=== PATIENT | male | born 1940 | race Caucasian/White ===

== ENCOUNTER 2020-04-29 11:33 | Outpatient (REF) | payer MEDICARE, SELFPAY ==
[2020-04-29 13:56] LABS: MANUAL DIFF FLAG NO
[2020-04-29 14:10] LABS: Basophils Percent Auto 0.5 % (0-2); Eosinophils Absolute Auto 0.1 X10*3/uL (0.0-0.4); Eosinophils Percent Auto 1.3 % (0-4); Hematocrit 43.1 % (42-52); Hemoglobin 13.5 g/dl (14.0-18.0); Imm Gran Abs Auto 0.01 X10*3/uL (0.00-0.03); Imm Gran Pct Auto 0.1 % (0.0-0.4); Lymphocytes Absolute Auto 1.8 X10*3/uL (1.2-4.9); Lymphocytes Percent Auto 22.8 % (20-40); Mean Corpuscular HGB Conc 31.3 g/dl (31.0-36.0); Mean Corpuscular Hemoglobin 29.2 pg (27.0-33.0); Mean Corpuscular Volume 93.1 fL (80-98); Mean Platelet Volume 10.9 fL (9.4-12.4); Monocytes Percent Auto 13.1 % (2-11); Neutrophils Absolute Auto 4.9 X10*3/uL (2.0-8.3); Neutrophils Percent Auto 62.2 % (45-73); Platelet Count 122 X10*3/uL (160-400); Red Blood Count 4.63 X10*6/uL (4.60-5.80); White Blood Count 7.9 X10*3/uL (4.8-10.8)
[2020-04-29 14:33] LABS: Alanine Aminotransferase 19 U/L (0-40); Albumin Level 3.8 g/dL (3.5-5.0); Alkaline Phosphatase 62 U/L (39-117); Anion Gap 13 (12-20); Aspartate Amino Transferase 16 U/L (5-37); Bilirubin Total 0.5 mg/dL (0.0-1.0); Blood Urea Nitrogen 24 mg/dL (9-16); C Reactive Protein 0.25 mg/dL (< or = 0.50); Calcium 8.6 mg/dL (8.4-10.2); Carbon Dioxide 29 mmol/L (22-29); Chloride 107 mmol/L (96-108); Estimated Glomerular Filt Rate 43; Glucose Random 104 mg/dL (60-115); Magnesium 2.5 mg/dL (1.6-2.6); Potassium 4.6 mmol/l (3.3-5.1); Sodium 144 mmol/L (135-145); Total Protein 6.5 g/dL (6.5-8.0)
[2020-04-29 14:39] LABS: Iron 74 mcg/dL (45-160); Percent Iron Saturation 20 % (15-50); Total Iron Binding Capacity 375 mcg/dL (228-428); Unsaturated Iron Binding 301 ug/dL
[2020-04-29 14:39] LABS: Glucose Urine UA NEG (NEG); Leukocyte Esterase Urine NEG (NEG); Nitrite Urine NEG (NEG); Urine Blood NEG (NEG); Urine Ketones NEG (NEG); Urine Protein TRACE MG/DL (NEG-TRACE)
[2020-04-29 14:43] LABS: Appearance Urine CLEAR; Color Urine YELLOW; Total Protein Urine Random 32 mg/dL (<12)
[2020-04-29 14:48] LABS: Ferritin 20 ng/mL (20-250)
[2020-04-29 14:57] LABS: Vitamin D 25-OH Total 20.5 ng/mL (>30)
[2020-04-29 15:12] LABS: RBC Urine 0-2 /HPF (0); WBC Urine 0-2 /HPF (0-4)
[2020-05-01 23:07] LABS: Calcium (PTHI) 8.9 mg/dL (8.6-10.3); PTHI 85 pg/mL (14-64)
== END 2020-04-29 11:34 | disposition home or self-care (01) ==
LOC: HO.10HDL 11:33
PROVIDERS: Absent Provider Internal Medicine Nephrology; Visit Provider Internal Medicine
DX: R25.2 Cramp and spasm (principal); I48.0 Paroxysmal atrial fibrillation; N18.9 Chronic kidney disease, unspecified; D63.1 Anemia in chronic kidney disease
CPT/HCPCS: 36415; 80053; 81001; 82306; 82728; 83540; 83735; 83970; 84156; 85025; 86140

== ENCOUNTER 2020-06-30 12:08 | Outpatient (REF) | payer MEDICARE, SELFPAY ==
[2020-06-30 14:19] LABS: Alanine Aminotransferase 14 U/L (0-40); Albumin Level 3.9 g/dL (3.5-5.0); Alkaline Phosphatase 62 U/L (39-117); Anion Gap 13 (12-20); Aspartate Amino Transferase 16 U/L (5-37); Bilirubin Total 0.8 mg/dL (0.0-1.0); Blood Urea Nitrogen 26 mg/dL (9-16); Calcium 8.9 mg/dL (8.4-10.2); Carbon Dioxide 32 mmol/L (22-29); Chloride 103 mmol/L (96-108); Estimated Glomerular Filt Rate 29; Glucose Random 105 mg/dL (60-115); Magnesium 2.1 mg/dL (1.6-2.6); Potassium 4.3 mmol/l (3.3-5.1); Sodium 144 mmol/L (135-145); Total Protein 6.8 g/dL (6.5-8.0)
== END 2020-06-30 12:09 | disposition home or self-care (01) ==
LOC: HO.10HDL 12:08
PROVIDERS: PCP Internal Medicine; Visit Provider Internal Medicine
DX: I48.91 Unspecified atrial fibrillation (principal); I10 Essential (primary) hypertension; R07.9 Chest pain, unspecified; R60.9 Edema, unspecified
CPT/HCPCS: 80053; 82550; 83735; 86140

== ENCOUNTER 2020-07-08 08:00 | Outpatient (RCR) | payer MEDICARE, SELFPAY | END 2020-08-11 11:41 | disposition home or self-care (01) | LOC: HO.PTCHIC 08:00 | PROVIDERS: PCP Internal Medicine; Visit Provider Orthopaedic Surgery | DX: M76.10 Psoas tendinitis, unspecified hip (principal) | CPT/HCPCS: 97110; 97140; 97162 ==

== ENCOUNTER 2020-09-09 07:43 | Outpatient (REF) | payer MEDICARE, SELFPAY ==
[2020-09-09 10:03] LABS: MANUAL DIFF FLAG NO
[2020-09-09 10:08] LABS: Basophils Percent Auto 0.6 % (0-2); Eosinophils Absolute Auto 0.2 X10*3/uL (0.0-0.4); Eosinophils Percent Auto 2.8 % (0-4); Hematocrit 42.4 % (42-52); Imm Gran Abs Auto 0.02 X10*3/uL (0.00-0.03); Imm Gran Pct Auto 0.3 % (0.0-0.4); Lymphocytes Absolute Auto 1.9 X10*3/uL (1.2-4.9); Lymphocytes Percent Auto 29.9 % (20-40); Mean Corpuscular HGB Conc 30.7 g/dl (31.0-36.0); Mean Corpuscular Hemoglobin 28.3 pg (27.0-33.0); Mean Corpuscular Volume 92.4 fL (80-98); Mean Platelet Volume 10.7 fL (9.4-12.4); Monocytes Absolute Auto 0.9 X10*3/uL (0.1-1.2); Monocytes Percent Auto 14.5 % (2-11); Neutrophils Absolute Auto 3.3 X10*3/uL (2.0-8.3); Neutrophils Percent Auto 51.9 % (45-73); Platelet Count 130 X10*3/uL (160-400); Red Blood Count 4.59 X10*6/uL (4.60-5.80); White Blood Count 6.4 X10*3/uL (4.8-10.8)
[2020-09-09 10:22] LABS: INTERNATIONAL NORM RATIO 1.7 (0.9-1.1); Prothrombin Time 19.9 SEC (10.8-13.0)
[2020-09-09 10:58] LABS: Alanine Aminotransferase 22 U/L (0-40); Alkaline Phosphatase 73 U/L (39-117); Anion Gap 15 (12-20); Aspartate Amino Transferase 23 U/L (5-37); Bilirubin Total 0.8 mg/dL (0.0-1.0); Blood Urea Nitrogen 28 mg/dL (9-16); Calcium 8.4 mg/dL (8.4-10.2); Carbon Dioxide 29 mmol/L (22-29); Chloride 104 mmol/L (96-108); Estimated Glomerular Filt Rate 29; Free T4 (Free Thyroxine) 1.38 ng/dL (0.71-1.85); Glucose Random 123 mg/dL (60-115); Potassium 4.2 mmol/L (3.3-5.1); Sodium 144 mmol/L (135-145); Thyroid Stimulating Hormone 2.39 uIU/mL (0.32-4.0); Total Protein 6.8 g/dL (6.5-8.0)
== END 2020-09-09 07:44 | disposition home or self-care (01) ==
LOC: HO.10HDL 07:43
PROVIDERS: Absent Provider Internal Medicine Cardiovascular Disease; Visit Provider Internal Medicine
DX: I48.91 Unspecified atrial fibrillation (principal); N18.9 Chronic kidney disease, unspecified; R60.0 Localized edema; E03.9 Hypothyroidism, unspecified
CPT/HCPCS: 36415; 80053; 84439; 84443; 85025; 85610

== ENCOUNTER 2020-10-08 10:52 | Outpatient (REF) | payer MEDICARE, SELFPAY ==
[2020-10-08 13:38] LABS: MANUAL DIFF FLAG NO
[2020-10-08 13:53] LABS: Glucose Urine UA NEG (NEG); Leukocyte Esterase Urine NEG (NEG); Nitrite Urine NEG (NEG); PH 5.5 (5.0-8.0); Specific Gravity - Urine 1.025 (1.005-1.025); Urine Blood NEG (NEG); Urine Ketones 5 MG/DL (NEG); Urine Protein NEG (NEG-TRACE)
[2020-10-08 13:57] LABS: Appearance Urine CLEAR; Color Urine YELLOW
[2020-10-08 14:01] LABS: Basophils Percent Auto 0.5 % (0-2); Eosinophils Absolute Auto 0.1 X10*3/uL (0.0-0.4); Eosinophils Percent Auto 1.1 % (0-4); Hematocrit 40.8 % (42-52); Hemoglobin 12.9 g/dl (14.0-18.0); Imm Gran Abs Auto 0.03 X10*3/uL (0.00-0.03); Imm Gran Pct Auto 0.5 % (0.0-0.4); Lymphocytes Absolute Auto 1.1 X10*3/uL (1.2-4.9); Lymphocytes Percent Auto 17.5 % (20-40); Mean Corpuscular HGB Conc 31.6 g/dl (31.0-36.0); Mean Corpuscular Hemoglobin 28.4 pg (27.0-33.0); Mean Corpuscular Volume 89.7 fL (80-98); Mean Platelet Volume 10.6 fL (9.4-12.4); Monocytes Absolute Auto 0.9 X10*3/uL (0.1-1.2); Monocytes Percent Auto 14.6 % (2-11); Neutrophils Absolute Auto 4.2 X10*3/uL (2.0-8.3); Neutrophils Percent Auto 65.8 % (45-73); Platelet Count 140 X10*3/uL (160-400); Red Blood Count 4.55 X10*6/uL (4.60-5.80); White Blood Count 6.4 X10*3/uL (4.8-10.8)
[2020-10-08 14:02] LABS: Estimated Average Glucose 120 mg/dL; Hemoglobin A1c % 5.8 %
[2020-10-08 14:06] LABS: Anion Gap 12 (12-20); Blood Urea Nitrogen 17 mg/dL (9-16); Carbon Dioxide 29 mmol/L (22-29); Chloride 102 mmol/L (96-108); Estimated Glomerular Filt Rate 38; Sodium 139 mmol/L (135-145)
[2020-10-08 14:10] LABS: C Reactive Protein 2.04 mg/dL (< or = 0.50)
== END 2020-10-08 10:53 | disposition home or self-care (01) ==
LOC: HO.10HDL 10:52
PROVIDERS: Absent Provider Internal Medicine Cardiovascular Disease; PCP Internal Medicine; Visit Provider Internal Medicine
DX: R10.9 Unspecified abdominal pain (principal); N18.9 Chronic kidney disease, unspecified; R73.03 Prediabetes; Z98.890 Other specified postprocedural states
CPT/HCPCS: 36415; 80051; 81003; 82550; 82565; 83036; 84520; 85025; 86140; 87086

== ENCOUNTER 2020-10-09 13:48 | Outpatient (REF) | payer MEDICARE, SELFPAY ==
--- NOTE | ~2020-10-09 | CT_ITS ---
EXAMINATION: CT ABDOMEN AND PELVIS WITHOUT CONTRAST CLINICAL INFORMATION: Left abdominal pain. History of diverticulitis. COMPARISON: None TECHNIQUE: Multidetector volumetric imaging was performed from the superior aspect of the liver through the pubic symphysis. Sagittal and coronal reformatted images were obtained on the technologist's workstation. This CT examination was performed using dose optimization techniques as appropriate, variously including the following: *Automated exposure control *Adjustment of mA and/or kV according to patient size (this includes techniques or standardized protocols for targeted exams where dose is matched to indication/reason for exam; i.e. extremities or head) *Use of iterative reconstruction technique DLP: 858 mGy-cm FINDINGS: LUNG BASES: The visualized lung bases are unremarkable. The heart size is normal. LIVER, GALLBLADDER, AND BILIARY TREE: The liver is normal in size, shape, and attenuation. No focal hepatic lesion or biliary ductal dilatation is present. There are multiple round radiopaque gallstones with largest stone measuring 2.4 cm. No wall thickening noted. PANCREAS: Unremarkable. SPLEEN: Unremarkable. ADRENAL GLANDS: Unremarkable. KIDNEYS AND URETERS: Both kidneys are normal size, shape and position. No radiopaque renal calculi or hydronephrosis seen. There is no perinephric stranding. BLADDER: Unremarkable. GASTROINTESTINAL TRACT: There is scattered stool, diverticuli and gas seen throughout the colon without any significant distention. The small bowel loops are normal caliber. Appendix is normal caliber. No free air or free fluid seen. ABDOMINAL WALL: No significant hernia is appreciated. LYMPH NODES: Normal. VASCULAR: Unremarkable. PELVIC VISCERA: There is beam hardening artifact from bilateral hip prosthesis limiting lower pelvic evaluation. OSSEOUS STRUCTURES: There is degenerative disc changes with ventral and posterior spondylosis at all lumbar and lower dorsal disc levels. There is a large 2.6 cm lytic lesion L3 vertebra. It is stable compared to 01/03/2020. There are bilateral hip prosthesis. CT/CT abdomen pelvis wo con IMPRESSION: Gallstones without wall thickening. Mild constipation. Colonic diverticulosis without diverticulitis.
[2020-10-09] MEDS: Barium Sulfate Oral (Berry) 450 ML ORAL.SUSP 900 ML PO (15:59)
== END 2020-10-09 13:49 | disposition home or self-care (01) ==
LOC: HO.CT 13:48
PROVIDERS: PCP Internal Medicine; Visit Provider Internal Medicine
DX: R10.32 Left lower quadrant pain (principal)
CPT/HCPCS: 74176

== ENCOUNTER → 2020-11-12 11:41 | Outpatient (BNVA) | payer MEDICARE, SELFPAY | PROVIDERS: Visit Provider Urology | DX: Z13.89 Encounter for screening for other disorder (principal) | CPT/HCPCS: 99212 ==

== ENCOUNTER 2021-01-13 06:58 | Outpatient (REF) | payer MEDICARE, SELFPAY ==
[2021-01-13 11:27] LABS: MANUAL DIFF FLAG NO
[2021-01-13 12:05] LABS: Basophils Percent Auto 0.2 % (0-2); Eosinophils Absolute Auto 0.1 X10*3/uL (0.0-0.4); Eosinophils Percent Auto 0.7 % (0-4); Hematocrit 43.3 % (42-52); Hemoglobin 13.6 g/dl (14.0-18.0); Imm Gran Abs Auto 0.05 X10*3/uL (0.00-0.03); Imm Gran Pct Auto 0.5 % (0.0-0.4); Mean Corpuscular HGB Conc 31.4 g/dl (31.0-36.0); Mean Corpuscular Hemoglobin 28.9 pg (27.0-33.0); Mean Corpuscular Volume 91.9 fL (80-98); Mean Platelet Volume 10.6 fL (9.4-12.4); Monocytes Percent Auto 10.8 % (2-11); Neutrophils Absolute Auto 6.3 X10*3/uL (2.0-8.3); Neutrophils Percent Auto 66.8 % (45-73); Platelet Count 119 X10*3/uL (160-400); Red Blood Count 4.71 X10*6/uL (4.60-5.80); Red Cell Distribution Width 16.5 % (11.0-16.0); White Blood Count 9.4 X10*3/uL (4.8-10.8)
[2021-01-13 12:23] LABS: Anion Gap 15 (12-20); Blood Urea Nitrogen 33 mg/dL (9-16); Carbon Dioxide 22 mmol/L (22-29); Chloride 109 mmol/L (96-108); Estimated Glomerular Filt Rate 37; Glucose Random 114 mg/dL (60-115); Potassium 4.4 mmol/L (3.3-5.1); Sodium 142 mmol/L (135-145)
== END 2021-01-13 06:59 | disposition home or self-care (01) ==
LOC: HO.HMGCLDS 06:58
PROVIDERS: PCP Internal Medicine; Visit Provider Internal Medicine
DX: R00.2 Palpitations (principal); N18.9 Chronic kidney disease, unspecified; D63.1 Anemia in chronic kidney disease
CPT/HCPCS: 36415; 80048; 85025

== ENCOUNTER 2021-01-14 10:30 | Outpatient (REF) | payer MEDICARE, SELFPAY ==
[2021-01-14 14:01] LABS: Alanine Aminotransferase 36 U/L (0-40); Albumin Level 3.8 g/dL (3.5-5.0); Alkaline Phosphatase 79 U/L (39-117); Aspartate Amino Transferase 22 U/L (5-37); Bilirubin Direct 0.2 mg/dL (0.0-0.5); Bilirubin Total 0.5 mg/dL (0.0-1.0); C Reactive Protein 0.47 mg/dL (< or = 0.50); Total Protein 6.8 g/dL (6.5-8.0)
== END 2021-01-14 10:31 | disposition home or self-care (01) ==
LOC: HO.10HDL 10:30
PROVIDERS: PCP Internal Medicine; Visit Provider Internal Medicine
DX: R14.0 Abdominal distension (gaseous) (principal); K80.80 Other cholelithiasis without obstruction
CPT/HCPCS: 36415; 80076; 86140

== ENCOUNTER → 2021-02-09 12:56 | Outpatient (BNVA) | payer MEDICARE, SELFPAY | PROVIDERS: PCP Internal Medicine; Referring Provider Internal Medicine; Visit Provider Surgery | DX: K80.20 Calculus of gallbladder without cholecystitis without obstruction (principal) | CPT/HCPCS: 99202 ==

== ENCOUNTER 2021-02-10 11:58 | Outpatient (REF) | payer MEDICARE, SELFPAY ==
--- NOTE | ~2021-02-10 | XR_ITS ---
EXAMINATION: XR CHEST CLINICAL INFORMATION: Chest pressure. COMPARISON: None TECHNIQUE: 2 views of the chest were obtained. FINDINGS: There is mild cardiomegaly with normal pulmonary vascularity. The lungs are expanded and clear. No gross bony abnormality seen. XR/XR chest 2V IMPRESSION: Mild cardiomegaly. No acute cardiopulmonary process seen.
[2021-02-10 12:44] LABS: Basophils Percent Auto 0.5 % (0-2)
[2021-02-10 12:46] LABS: Eosinophils Absolute Auto 0.1 X10*3/uL (0.0-0.4); Eosinophils Percent Auto 1.7 % (0-4); Hematocrit 43.1 % (42-52); Hemoglobin 13.5 g/dl (14.0-18.0); Imm Gran Abs Auto 0.02 X10*3/uL (0.00-0.03); Imm Gran Pct Auto 0.3 % (0.0-0.4); Lymphocytes Absolute Auto 1.7 X10*3/uL (1.2-4.9); Mean Corpuscular HGB Conc 31.3 g/dl (31.0-36.0); Mean Corpuscular Hemoglobin 28.9 pg (27.0-33.0); Mean Corpuscular Volume 92.3 fL (80-98); Monocytes Absolute Auto 0.7 X10*3/uL (0.1-1.2); Monocytes Percent Auto 10.3 % (2-11); Neutrophils Absolute Auto 4.1 X10*3/uL (2.0-8.3); Neutrophils Percent Auto 62.2 % (45-73); Red Blood Count 4.67 X10*6/uL (4.60-5.80); Red Cell Distribution Width 15.1 % (11.0-16.0); White Blood Count 6.6 X10*3/uL (4.8-10.8)
[2021-02-10 12:50] LABS: Platelet Count 119 X10*3/uL (160-400)
[2021-02-10 12:55] LABS: D Dimer 337 NG/ML
[2021-02-10 13:19] LABS: Alanine Aminotransferase 16 U/L (0-40); Alkaline Phosphatase 80 U/L (39-117); Anion Gap 11 (12-20); Aspartate Amino Transferase 17 U/L (5-37); Bilirubin Total 0.5 mg/dL (0.0-1.0); Blood Urea Nitrogen 28 mg/dL (9-16); Calcium 9.1 mg/dL (8.4-10.2); Carbon Dioxide 29 mmol/L (22-29); Chloride 107 mmol/L (96-108); Estimated Glomerular Filt Rate 41; Glucose Random 105 mg/dL (60-115); Potassium 4.4 mmol/L (3.3-5.1); Sodium 143 mmol/L (135-145); Total Protein 6.8 g/dL (6.5-8.0)
== END 2021-02-10 11:59 | disposition home or self-care (01) ==
LOC: HO.XRAY 11:58
PROVIDERS: PCP Internal Medicine; Visit Provider Internal Medicine
DX: K80.20 Calculus of gallbladder without cholecystitis without obstruction (principal); R07.89 Other chest pain; I12.9 Hypertensive chronic kidney disease with stage 1 through stage 4 chronic kidney disease, or unspecified chronic kidney disease; N18.9 Chronic kidney disease, unspecified
CPT/HCPCS: 36415; 71046; 80053; 85025; 85379; 86140

== ENCOUNTER → 2021-02-26 07:26 | Outpatient (REF) | payer MEDICARE, SELFPAY ==
--- NOTE | 2021-02-26 07:29 | CA_ITS ---
Transthoracic Echocardiogram Patient (Last, First, Middle): Ramon Atkinson A Gender: Male Date of : 1940 Age: 81 Procedure Date: 02/26/2021 Procedure Type: Transthoracic Echocardiogram Location: OP Height: 182.88 cm Weight: 126.55 kg BSA: 2.45 m2 Heart Rate: bpm BP: 128 / 80 mmHg [employer]: Referring MD: Ferdinand Gonzáles MD Reaming Machine Operator For Plastic: Dante Briones MD Symptoms: I50.9 - Heart failure, unspecified Study Quality: TDS, GOOD WITH DEFINITY ECG Rhythm: Sinus Conclusions: - 1. Technically difficult study despite use of contrast 2. Normal LV systolic function with mild LVH with impaired relaxation filling pattern 3. Mildly dilated left atrium 4. Mild aortic stenosis 5. Normal RV systolic pressure Findings Procedure Information Contrast agent, definity, is being given per protocol without apparent complications. Left Ventricle The left ventricle was not well visualized. Normal left ventricular cavity size. There is mildly increased left ventricular wall thickness. The left ventricular systolic function is normal. The visually estimated ejection fraction is between 60-65%. There is no evidence of regional wall motion abnormalities. Spectral Doppler is indicative of an impaired relaxation filling pattern. Elevated filling pressures. Right Ventricle The right ventricle was not well visualized. Atria The left atrium is mildly dilated. There is no evidence of interatrial shunt. The right atrium was not well visualized. Aortic Valve The aortic valve was not well visualized. There is mild calcification of the aortic valve. There is mild aortic valve stenosis. The peak aortic gradient is 19 mmHg.The mean gradient is 9 mmHg. The aortic valve area is 1.67 cm2. There is no aortic valve regurgitation. Mitral Valve The mitral valve was not well visualized. There is trace mitral valve regurgitation. There is no mitral valve stenosis. Pulmonic Valve The pulmonic valve was not well visualized. Tricuspid Valve The tricuspid valve was not well visualized. There is trace tricuspid valve regurgitation. The right ventricular systolic pressure is normal. There is no evidence of pulmonary hypertension. Great Vessels The aorta was not well visualized. The pulmonary artery was not well visualized. Venous The inferior vena cava is normal in size. Pericardium/Pleural The pericardium was not well visualized. Prior Study Comparison Changes noted compared to prior study dated: 08/22/2018. Mild aortic stenosis is noted on this study Measurements 2D Linear Measurements IVSd: 1.29 0.6-0.9/0.6-1.0 cm LVIDd: 5.03 3.9-5.3/4.2-5.9 cm LVIDd Index: 2.05 2.4-3.2/2.2-3.1 cm/m2 LVIDs: 3.09 2.0-3.6 cm LVPWd: 1.30 0.7-1.1 cm Ao Root: 3.80 2.1-3.5 cm LA Diam: 3.50 2.7-3.8/3.0-4.0 cm LAIDs Index: 1.43 1.5-2.3 cm/m2 LV Mass: 327.79 67-162/88-224 g LV Mass Index: 133.79 43-95/49-115 g/m2 LVOT Diam: 2.20 3.0+(-)1.3 cm 2D Systolic Function EF 4C: 55.20 >55% EF 2C: 64.20 >55% EF BiP: 60.70 >55% Mitral Valve MV Pk E: 0.88 MV PK A: 0.77 MV Decel Time: 257.00 E/A: 1.10 E'Lateral: 7.07 E'Medial: 5.11 E/E' Med: 17.20 E/E' Lat: 12.40 PHT: 75.00 MVA PHT: 2.93 Decel Hinds: 3.42 Aortic Valve AoV Pk Moshe: 2.16 AoV Mn Moshe: 1.36 AoV VTI: 0.53 AoV Pk Grad: 19.00 Aov Mn Grad: 9.00 VALENTIN Cont.VTI: 1.67 LVOT LVOT Pk Moshe: 0.88 LVOT Mn Moshe: 0.65 LVOT VTI: 0.23 LVOT Pk Grad: 3.00 LVOT Mn Grad: 2.00 LVOT Diam: 2.20 LVOT Area: 3.80 Diastolic Function MV Pk E: 0.88 MV Pk A: 0.77 E/A: 1.10 E'Medial: 5.11 E/E' Med: 17.20 E' Laterial: 7.07 E/E' Lat: 12.40 Right Ventricle TAPSE (mm): 27.00 TVS' Moshe: 12.00 Tricuspid Valve TR Pk Moshe: 1.75 TR Pk Grad: 12.00 RA Press: 3.00 RVSP: 15.00 Great Vessels Aorta Ao Root-2D: 3.80 2.0-3.7 cm Ao Asc: 3.50 2.1-3.4 cm Pulmonary Valve PV Pk Moshe: 0.69 Peak PV Grad: 2.00 Updated in Other Vendor System with Status of Final Dante Briones MD electronically signed on 02/26/2021 4:12:01 PM with status of Final
== END ==
LOC: HO.CARD 07:26
PROVIDERS: Visit Provider Surgery
DX: I50.9 Heart failure, unspecified (principal); R01.1 Cardiac murmur, unspecified; G47.30 Sleep apnea, unspecified; I48.91 Unspecified atrial fibrillation
CPT/HCPCS: 93306; Q9957

== ENCOUNTER 2021-03-03 07:51 | Day surgery (SDC) | payer MEDICARE, SELFPAY ==
[2021-02-22 10:10] VITALS: BMI 38.3
[2021-02-23 12:27] VITALS: BP 195/90; PULSE 68; RESP 18; O2SAT 97
--- NOTE | 2021-02-23 12:31 | P.CONAN_ITS ---
Documented by User: Ros Schmitz NP 03/02/21 10:24 HPI - Anesthesia Eval Consult details Narrative: 81yo M for Cholecystectomy Laparoscopic, Poss Open Cardiac cleared Eliquis for afib (s/p mult cardioversions and ablation) Case reviewed with Dr Hall. Echo preop BP elevated at [facility]. PCP is monitoring. Recently had amlodipine added to regimen and has been going for BP checks. BP readings at PCP have been lower. Will monitor at home and contact PCP if remains elevated. [facility] Active Problems Active Problems: All Active Problems (Updated 02/22/21 @ 10:16 by Jackie Villa) Symptomatic cholelithiasis (Acute) Renal stones (Acute) Elevated PSA (Acute) BPH loc w urin obs/LUTS (Acute) Past Medical History Medical History (Updated 02/23/21 @ 13:38 by Ros Schmitz NP) Atrial fibrillation BPH loc w urin obs/LUTS COVID-19 vaccine series completed Elevated PSA Facet arthropathy, cervical GERD (gastroesophageal reflux disease) HTN (hypertension) Hyperlipidemia On anticoagulant therapy Renal stones Sleep apnea Thyroid disease Surgical History Surgical History (Updated 02/22/21 @ 10:16 by Jackie Villa RN) H/O colonoscopy History of surgery History of total replacement of both hip joints Hx of arthroscopic knee surgery Hx of cataract extraction Hx of cystoscopy Social History Social History (Updated 02/22/21 @ 10:19 by Jackie Villa RN) Household Members: Spouse Housing: House Are you a primary certified caregiver to a significant other at home: No Do you presently have visiting nurse or other home services: No Alcohol intake: never Patient Tobacco Use Status: Never used Tobacco Use of substances other than those prescribed or required for medical reasons: No Have you been hit, kicked, punched, or otherwise hurt by someone within the past year? If so, by whom?: No Are you DNR?: No Advance Directives: No (states is his [place] Advance Directives Information Provided: No Advance Directives on File: No Recently lost weight without trying: No Eating poorly because of decreased appetite: No Nutrition Risks: Surgical patient >75years Poor oral hygiene: No (upper right front broken tooth) Meds Allergies Allergy/AdvReac Type Severity Reaction Status Date / Time ibuprofen [IBUPROFEN] Allergy Intermediate HIVES Verified 02/22/21 10:27 hydromorphone [From DILAUDID] AdvReac Intermediate ILEUS Verified 02/09/21 13:24 procaine [From Novocain] AdvReac Intermediate has no Verified 02/22/21 10:27 numbing effect-states monocain works narcotic pain meds AdvReac Intermediate does not Uncoded 02/22/21 10:27 relieve pain per patient Home Medications Medication Instructions Recorded Confirmed Last Taken Type levothyroxine 88 mcg tablet 88 mcg PO 6XW 11/12/20 02/22/21 03/03/21 06:00 History apixaban 5 mg tablet (Eliquis) 5 mg PO BID 02/09/21 02/22/21 02/28/21 History omeprazole 40 mg capsule,delayed 40 mg PO DAILY 02/09/21 02/22/21 03/03/21 06:00 History release pravastatin 80 mg tablet 80 mg PO BEDTIME 02/09/21 02/22/21 Unknown History torsemide 20 mg tablet 20 mg PO Q2D 02/09/21 02/22/21 Unknown History acetaminophen 500 mg tablet 1,000 mg PO QAM 02/22/21 02/22/21 Unknown History (Tylenol Extra Strength) amlodipine 5 mg tablet 2.5 mg PO DAILY 02/22/21 02/22/21 Unknown History cephalexin 500 mg capsule 1 cap PO QID 03/03/21 03/03/21 03/02/21 History Exam Exam Date and Time: February 23, 2021 1231 Height,Weight and Vital Signs: Height 6 ft Weight 128.367 kg Pertinent Lab Results Pertinent Lab Results: Laboratory Tests 02/10/21 02/10/21 12:15 12:15 WBC 6.6 Hgb 13.5 L Hct 43.1 Plt Count 119 L Sodium 143 Potassium 4.4 Chloride 107 Carbon Dioxide 29 BUN 28 H Creatinine 1.63 H Narrative Narrative: + murmur noted on exam, +1 edema in ankles. Pt held torsemide to avoid urinary frequency. ECHO 02/26/21 Conclusions: -? 1. Technically difficult study despite use of contrast? 2. Normal LV systolic function with mild LVH with impaired ? ? ? relaxation filling pattern ? 3. Mildly dilated left atrium? 4. Mild aortic stenosis? 5. Normal RV systolic pressure ? Airway Mallampati Class: II TM Dist: >3cm Neck ROM: Full Loose/Missing/Broken Teeth: Yes (Upper front broken) Heart: RRR + M Lungs: CTAB Assessment and Plan Assessment Anesthesia Assessment: Anesthesia Plan Discussed and PAT Visit Documented by User: Matt Meadows MD 03/03/21 10:07 PMFSH Past Medical History Medical History (Updated 02/23/21 @ 13:38 by Ros Schmitz NP) Atrial fibrillation BPH loc w urin obs/LUTS COVID-19 vaccine series completed Elevated PSA Facet arthropathy, cervical GERD (gastroesophageal reflux disease) HTN (hypertension) Hyperlipidemia On anticoagulant therapy Renal stones Sleep apnea Thyroid disease Family History Family history of problems with anesthesia: No Surgical History Surgical History (Updated 02/22/21 @ 10:16 by Jackie Villa RN) H/O colonoscopy History of surgery History of total replacement of both hip joints Hx of arthroscopic knee surgery Hx of cataract extraction Hx of cystoscopy History of Problems with Anesthesia: No Social History Social History (Updated 02/22/21 @ 10:19 by Jackie Villa RN) Household Members: Spouse Housing: House Are you a primary certified caregiver to a significant other at home: No Do you presently have visiting nurse or other home services: No Alcohol intake: never Patient Tobacco Use Status: Never used Tobacco Use of substances other than those prescribed or required for medical reasons: No Have you been hit, kicked, punched, or otherwise hurt by someone within the past year? If so, by whom?: No Are you DNR?: No Advance Directives: No (states is his -[place] Advance Directives Information Provided: No Advance Directives on File: No Recently lost weight without trying: No Eating poorly because of decreased appetite: No Nutrition Risks: Surgical patient >75years Poor oral hygiene: No (upper right front broken tooth) Meds Allergies Allergy/AdvReac Type Severity Reaction Status Date / Time ibuprofen [IBUPROFEN] Allergy Intermediate HIVES Verified 02/22/21 10:27 hydromorphone [From DILAUDID] AdvReac Intermediate ILEUS Verified 02/09/21 13:24 procaine [From Novocain] AdvReac Intermediate has no Verified 02/22/21 10:27 numbing effect-states monocain works narcotic pain meds AdvReac Intermediate does not Uncoded 02/22/21 10:27 relieve pain per patient Home Medications Medication Instructions Recorded Confirmed Last Taken Type levothyroxine 88 mcg tablet 88 mcg PO 6XW 11/12/20 02/22/21 03/03/21 06:00 History apixaban 5 mg tablet (Eliquis) 5 mg PO BID 02/09/21 02/22/21 02/28/21 History omeprazole 40 mg capsule,delayed 40 mg PO DAILY 02/09/21 02/22/21 03/03/21 06:00 History release pravastatin 80 mg tablet 80 mg PO BEDTIME 02/09/21 02/22/21 Unknown History torsemide 20 mg tablet 20 mg PO Q2D 02/09/21 02/22/21 Unknown History acetaminophen 500 mg tablet 1,000 mg PO QAM 02/22/21 02/22/21 Unknown History (Tylenol Extra Strength) amlodipine 5 mg tablet 2.5 mg PO DAILY 02/22/21 02/22/21 Unknown History cephalexin 500 mg capsule 1 cap PO QID 03/03/21 03/03/21 03/02/21 History Exam Airway TM Dist: <=3cm Assessment and Plan Assessment Anesthesia Assessment: Chart Reviewed Final Anesthetic Review Family History of Problems with Anesthesia: No History of Problems with Anesthesia: No NPO: Yes ASA Class: III Final Preanesthetic Review: No Changes in Pt Med Stat, Meds/Allgs Chart Reviewed, Consent Obtained/Reviewed and Anes Risks/Benef Reviewed Patient Risk: High Procedure Risk: Intermediate Anesthetic Plan Anesthetic Plan: GA and Agree w/ Assess. and Plan Disposition: Standard PACU
[2021-03-03] VITALS (29 sets, daily range): BP systolic 125–189; BP diastolic 63–82; PULSE 50–75; RESP 16–20; TEMP 36.3–37.4; O2SAT 92–100
[2021-03-03] MEDS: Lactated Ringers 1,000 ML 100 ML IVCONT (08:52)
--- NOTE | 2021-03-03 09:39 | MHC.SHP ---
Pre-Procedural Eval Section A Date of Service: 03/03/21 The patient is an INPATIENT: No Changes since office visit: Yes Patient answered all questions; No Cold of Flu in the past 2 weeks, No New Medical Problems and No Changes in Medication The History & Physical has been completed within 30 days and I have reviewed it.: Yes Section B Chief Complaint: Symptomatic cholelithiasis Allergies: Allergies Allergy/AdvReac Type Severity Reaction Status Date / Time ibuprofen [IBUPROFEN] Allergy Intermediate HIVES Verified 02/22/21 10:27 hydromorphone [From DILAUDID] AdvReac Intermediate ILEUS Verified 02/09/21 13:24 procaine [From Novocain] AdvReac Intermediate has no Verified 02/22/21 10:27 numbing effect-states monocain works narcotic pain meds AdvReac Intermediate does not Uncoded 02/22/21 10:27 relieve pain per patient Plan Diagnosis/Plan: Unchanged I have reviewed the history and physical and performed a pertinent physical examination on my patient. No changes have occurred unless specified.
--- NOTE | 2021-03-03 11:57 | W.PM.OPN ---
Operative Note Operative Note Date of Service: 03/03/21 Narrative: Preoperative diagnosis: Symptomatic cholelithiasis Postoperative diagnosis: Same Procedure: Laparoscopic cholecystectomy Surgeon: Ferdinand Gonzáles MD Assistant Hvac Mechanic: LUIS E Beck Anesthesia: General endotracheal Indications for procedure:81-year-old male patient presenting with complaints of abdominal pain in the right upper quadrant found to have multiple large gallstones within the gallbladder. Patient presents today for laparoscopic cholecystectomy. Operative findings: Chronically inflamed gallbladder which was located in intrahepatic location with multiple large gallstones. Specimen: Gallbladder Estimated blood loss: 15 mL Complications: none Procedure details: Patient was brought to the OR and placed in a supine position. After administering general anesthesia the patient's abdomen was prepped with ChloraPrep and draped in a sterile fashion. Local anesthesia consisting of 0.25% Sensorcaine with epinephrine was infiltrated in a periumbilical region. A 5 mm incision was made above the umbilicus in a transverse fashion. The Veress needle was then inserted while elevating abdominal cavity with towel clips. After positive drop test the abdomen was insufflated to a pressure of 15 mm of mercury. The Veress needle was then removed and a 5 mm trocar inserted. The camera was inserted in the abdomen explored. A 12 mm trocar was then placed in the epigastrium and 2 5 mm trocars placed in the right upper quadrant. The patient was placed in reverse Trendelenburg positioning and rotated to the left. The gallbladder was grasped with the fundus and retracted cephalad.. The infundibulum Was then grasped and retracted away from the liver bed. The Dolphin dissected was then used to dissect the peritoneum off the infundibulum to reveal the junction with the cystic duct. Cystic artery was noted slightly medial and posterior to the cystic duct. After obtaining a critical view the cystic duct was doubly clipped and divided. The cystic artery was then doubly clipped and divided. The gallbladder was then dissected off the liver bed using electrocautery with an L hook. Hemostasis was assured all times using the electrocautery. When the gallbladder is completely dissected off the liver bed was placed in an Endo-Catch bag and brought out through the epigastric incision. The gallbladder was sent to pathology for further examination. The abdomen was then re-examined. The liver bed was irrigated and suctioned dry. No bleeding or bile leak could be identified. Because of the intrahepatic location of the gallbladder there was some raw surface of the liver which was not bleeding however Surgicel was applied as a precaution. CO2 was then evacuated and all trocars removed. Fascia was closed at the epigastric incision using a [id number] 0 Polysorb suture. Skin was closed in all incisions using a subcuticular 4 0 Polysorb suture. Sterile dressings consisting of Steri-Strips, 2 x 2 gauze, and Tegaderm were then applied. The patient tolerated the procedure well. Sponge instrument and needle counts reported as correct. The patient was transferred to PACU in stable condition.
[2021-03-03] MEDS: oxyCODONE HCl Immed Release 5 MG TABLET PO ×2 (12:37→23:39)
--- NOTE | 2021-03-03 12:43 | ECG_ITS ---
Test Reason : CHEST PAIN Blood Pressure : / mmHG Vent. Rate : 052 BPM Atrial Rate : 052 BPM P-R Int : 226 ms QRS Dur : 098 ms QT Int : 516 ms P-R-T Axes : 048 -32 -31 degrees QTc Int : 479 ms Sinus bradycardia with 1st degree A-V block Left axis deviation Incomplete right bundle branch block Voltage criteria for left ventricular hypertrophy Inferior infarct , age undetermined Abnormal ECG When compared with ECG of 22-AUG-2018 06:40, Atrial fibrillation with rapid ventricular response is no longer Present Referred By: Ferdinand Gonzáles Electronically Signed By:STEVE BOGGS
--- NOTE | 2021-03-03 12:45 | PC.NURSE ---
patient started to have chest pain right before giving fentanyl. epigastric area,pressure with burning. color wnl. patient states he feels sob md castano by bedside and ordered ekg.
[2021-03-03] MEDS: fentaNYL citrate/PF 100 MCG/2 ML VIAL 50 MCG IVPUSH ×4 (12:51→13:51)
--- NOTE | 2021-03-03 12:54 | PC.NURSE ---
md hodgson by bedside reeval patient. ekg performed. epigastric pain 9/10 abd pain 10/10.
--- NOTE | 2021-03-03 13:10 | PC.NURSE ---
troponin sensitivity being drawn at this time. cont to monitor.
[2021-03-03] MEDS: Nitroglycerin 0.4 MG TAB.SUBL SUBLINGUAL ×3 (13:28→16:52)
--- NOTE | 2021-03-03 13:31 | PC.NURSE ---
1st dose of nitro 0.4mg given sl for 9/10 epigastric pain/chest pain, pressure per patient and abd pain. dressings remain dry and intact. no bleeding noted. 8/10 chest pain and 9/10 abd pain.
--- NOTE | 2021-03-03 13:44 | PC.NURSE ---
md castano by bedside.
[2021-03-03 13:48] LABS: Troponin-I High Sensitivity 12.5 ng/L (<3.5-35.0)
--- NOTE | 2021-03-03 13:53 | PC.NURSE ---
medicated for 7/10 chest/epigastric pain and abd pain
--- NOTE | 2021-03-03 14:05 | PC.NURSE ---
second dose of nitro given. cont to monitor. 1st dose of nitro took a longtime to dissolve due to dry mouth. reapplied new ice packs. cardiology cinsult put in by md castano. family aware of his plan of care and so does the patient.
--- NOTE | 2021-03-03 15:33 | PM.EVENT ---
Event Note Date of Service: 03/03/21 Event Note: Notified by a PACU the patient developed chest pain located in the substernal location. He also reports a sensation of feeling shortness of breath. Saturation noted to be in the high 90s however blood pressure was also markedly elevated (190s/70s). Patient was evaluated by Dr. Schaefer from anesthesia and EKG, troponins ordered. Patient given sublingual nitro glycerin and pain medication. He reports feeling improved with improved breathing. Patient to be placed as extended recovery patient, placed on IMC with telemetry monitoring. I discussed the patient's condition with his and she expressed understanding and agrees with the plan. Cardiology consultation requested.
--- NOTE | 2021-03-03 16:45 | P.CONCA_ITS ---
History of Present Illness History of Present Illness Date of Service: 03/03/21 Chief complaint: CP Narrative: 81-year-old gentleman with background history of atrial fibrillation for which he underwent ablation follow-up atypical chest pain and hypertension presenting for gallstones and underwent do cholecystectomy. In PACU she developed substernal chest pressure in setting of elevated blood pressures. He was given nitroglycerin with relief in his chest discomfort. He has been experiencing chest discomfort before which was quite atypical and mostly in the setting of AFib with RVR. He has a recent his blood pressure was elevated and he saw Dr. Rodriguez and amlodipine was added to his regimen. He said he did not take any medications today because he was coming for procedure. His blood pressure was high and he was started on his home medications. He was complaining of mild chest discomfort. His troponin was negative an EKG was also nonspecific. he was on Eliquis which was stopped because of surgery. Review of Systems Review of Systems: Chest discomfort PMFSH Past Medical History Medical History (Updated 03/03/21 @ 19:29 by Ascencion Holland MD) Atrial fibrillation BPH loc w urin obs/LUTS COVID-19 vaccine series completed Elevated PSA Facet arthropathy, cervical GERD (gastroesophageal reflux disease) HTN (hypertension) Hyperlipidemia On anticoagulant therapy Renal stones Sleep apnea Thyroid disease Surgical History Surgical History (Updated 02/22/21 @ 10:16 by Jackie Villa RN) H/O colonoscopy History of surgery History of total replacement of both hip joints Hx of arthroscopic knee surgery Hx of cataract extraction Hx of cystoscopy Social History Social History (Updated 02/22/21 @ 10:19 by Jackie Villa RN) Household Members: Spouse Housing: House Are you a primary healthcare architect to a significant other at home: No Do you presently have visiting nurse or other home services: No Alcohol intake: never Patient Tobacco Use Status: Never used Tobacco Use of substances other than those prescribed or required for medical reasons: No Currently Displaying Signs/Symptoms of Drug Intoxication Withdrawal: No Have you been hit, kicked, punched, or otherwise hurt by someone within the past year? If so, by whom?: No Do you feel safe in your current relationship?: No Is there a partner from a previous relationship who is making you feel unsafe now?: No Are you made to feel afraid or neglected: No Jehovah'S Witness Healthcare Practices: Pentecostalism Are you DNR?: No Advance Directives: No (states is [place] [place] Advance Directives Information Provided: No Advance Directives on File: No Do you have thoughts of harming others: None Do you have a plan to hurt others: No Plan Recently lost weight without trying: No Eating poorly because of decreased appetite: No Nutrition Risks: No Nutritional Risk Poor oral hygiene: No Meds Allergies Allergy/AdvReac Type Severity Reaction Status Date / Time ibuprofen [IBUPROFEN] Allergy Intermediate HIVES Verified 02/22/21 10:27 hydromorphone [From DILAUDID] AdvReac Intermediate ILEUS Verified 02/09/21 13:24 procaine [From Novocain] AdvReac Intermediate has no Verified 02/22/21 10:27 numbing effect-states monocain works narcotic pain meds AdvReac Intermediate does not Uncoded 02/22/21 10:27 relieve pain per patient Active Medications: Current Medications Generic Name Dose Route Start Last Admin Trade Name Freq PRN Reason Stop Dose Admin Acetaminophen 650 mg 03/03/21 13:50 Acetaminophen 325 Mg Tablet PO Q6H PRN Pain, Moderate (Pain Scale 4-6 Acetaminophen 975 mg 03/04/21 09:00 Acetaminophen 325 Mg Tablet PO DAILY [facility] Amlodipine Besylate 2.5 mg 03/04/21 09:00 Amlodipine Besylate 2.5 Mg Tablet PO DAILY [facility] Protocol Lactated Ringer's 1,000 mls @ 100 mls/hr 03/03/21 08:15 03/03/21 08:52 Lr IVCONT 100 mls/hr .Q10H [facility]AN Administration Dextrose/Lactated Ringer's 1,000 mls @ 125 mls/hr 03/03/21 14:00 D5lr IVCONT .Q8H [facility] Morphine Sulfate 4 mg 03/03/21 13:50 Morphine Sulfate 2 Mg/Ml Cartridge IVPUSH Q3H PRN Pain, Severe (Pain Scale 7-10) Protocol Nitroglycerin 0.4 mg 03/03/21 13:21 03/03/21 14:01 Nitroglycerin 0.4 Mg Tab.Subl SUBLINGUAL 0.4 mg Q5MX3 PRN Administration Chest Pain Omeprazole 40 mg 03/04/21 06:30 Omeprazole 40 Mg Capsule. PO DAILY@0630 [facility] Ondansetron HCl 4 mg 03/03/21 10:07 Ondansetron Hcl 4 Mg/2 Ml Vial IVPUSH ONCE PRN Nausea and Vomiting Ondansetron HCl 4 mg 03/03/21 13:50 Ondansetron Hcl 4 Mg/2 Ml Vial IVPUSH Q8H PRN Nausea and Vomiting Oxycodone HCl 5 mg 03/03/21 13:50 Oxycodone Hcl Immed Release 5 Mg Tablet PO Q4H PRN Pain, Moderate (Pain Scale 4-6 Pravastatin Sodium 80 mg 03/03/21 21:00 Pravastatin Sodium 80 Mg Tablet PO BEDTIME [facility] Sodium Chloride 3 ml 03/03/21 16:00 0.9 % Sodium Chloride Flush 3 Ml Syringe IVFLUSH QSHIFT [facility] Temazepam 15 mg 03/03/21 13:50 Temazepam 15 Mg Capsule PO BEDTIME PRN Insomnia Torsemide 20 mg 03/04/21 09:00 Torsemide 20 Mg Tablet PO Q2D [facility] Protocol Home Medications Medication Instructions Recorded Confirmed Last Taken Type levothyroxine 88 mcg tablet 88 mcg PO 6XW 11/12/20 02/22/21 03/03/21 06:00 History apixaban 5 mg tablet (Eliquis) 5 mg PO BID 02/09/21 02/22/21 02/28/21 History omeprazole 40 mg capsule,delayed 40 mg PO DAILY 02/09/21 02/22/21 03/03/21 06:00 History release pravastatin 80 mg tablet 80 mg PO BEDTIME 02/09/21 02/22/21 Unknown History torsemide 20 mg tablet 20 mg PO Q2D 02/09/21 02/22/21 Unknown History acetaminophen 500 mg tablet 1,000 mg PO QAM 02/22/21 02/22/21 Unknown History (Tylenol Extra Strength) amlodipine 5 mg tablet 2.5 mg PO DAILY 02/22/21 02/22/21 Unknown History cephalexin 500 mg capsule 1 cap PO QID 03/03/21 03/03/21 03/02/21 History Physical Exam Vital Signs: Vital Signs: Last Vital Signs Temp 98.5 F 03/03/21 15:44 Pulse 61 03/03/21 15:44 Resp 18 03/03/21 15:44 BP 163/76 H 03/03/21 15:44 Pulse Ox 98 03/03/21 15:44 Body Mass Index 38.3 GENERAL APPEARANCE: in no acute distress, pleasant. NECK: no carotid bruit, no jugular venous distention. SKIN: no suspicious lesions, warm and dry. HEART: no murmurs, regular rate and rhythm. LUNGS: clear to auscultation bilaterally. ABDOMEN: soft, Tender RUQ-post Op. EXTREMITIES: no edema. PERIPHERAL PULSES: equal. NEUROLOGIC: No gross deficits, AAO X 3 Results Labs and Meds Lab results: Laboratory Results - last 24 hr 03/03/21 13:11 Troponin I High Sens 12.5 Assessment and Plan (1) Chest pain: Status: Acute (2) HTN (hypertension): Status: Acute 81-year-old gentleman background history of paroxysmal fibrillation status post ablation on anticoagulation and hypertension who is presenting for is cholecystectomy electively. Post surgery developed chest discomfort and elevated blood pressures. He was given nitroglycerin with improvement in blood pressure and chest discomfort. He is still has mild chest discomfort. EKG is nonspecific. Troponin is normal. I think CP is due to elevated BP. He has no h/o CAD. Recheck troponin in 3 hours. Control BP. Restart home medications. We will follow along. Procedures Date of Service Date of Service: 03/03/21
[2021-03-03] MEDS: Dextrose 5 % and Lactated Ring 1,000 ML 125 ML IVCONT (16:55)
[2021-03-03] MEDS: amLODIPine Besylate 2.5 MG TABLET PO (18:11)
[2021-03-03] MEDS: Nitroglycerin 2 % Oint 1 GM Packet 1 INCH TRANSDERMA (19:46)
[2021-03-03] MEDS: Pravastatin Sodium 80 MG TABLET PO (20:00)
[2021-03-03] MEDS: 0.9 % Sodium Chloride Flush 3 ML SYRINGE IVFLUSH (23:39)
[2021-03-04] VITALS (7 sets, daily range): BP systolic 159–180; BP diastolic 64–71; PULSE 63–66; RESP 18–20; TEMP 36.1–36.9; O2SAT 94–96
[2021-03-04] MEDS: Dextrose 5 % and Lactated Ring 1,000 ML 125 ML IVCONT ×2 (01:14→10:21)
[2021-03-04] MEDS: Omeprazole 40 MG CAPSULE.DR PO (05:48)
[2021-03-04] MEDS: oxyCODONE HCl Immed Release 5 MG TABLET PO (05:53)
[2021-03-04] MEDS: Nitroglycerin 2 % Oint 1 GM Packet 1 INCH TRANSDERMA (07:34)
[2021-03-04] MEDS: Torsemide 20 MG TABLET PO (07:34)
[2021-03-04] MEDS: Acetaminophen 325 MG TABLET 975 MG PO (07:35)
[2021-03-04] MEDS: amLODIPine Besylate 2.5 MG TABLET PO ×2 (07:35→10:21)
--- NOTE | 2021-03-04 08:02 | PM.PNGS ---
Subjective Subjective Date of Service: 03/04/21 <Alysa Thapa PA-C - Last Filed: 03/04/21 08:07> 03/04/21 <Ferdinand Gonzáles MD - Last Filed: 03/04/21 09:01> Interval history: Feeling a little better this morning. Having some RUQ pain at incision site, CP improved and more just pressure. Has not been OOB and was refusing chair yesterday. Reports SBP at home has been around 160s- saw PCP recently and started on amlodipine. <Alysa Thapa PA-C - Last Filed: 03/04/21 08:07> Physical Exam Vital Signs: Vital Signs: Last Vital Signs Temp 98.2 F 03/04/21 07:20 Pulse 66 03/04/21 07:35 Resp 20 03/04/21 07:20 BP 168/64 H 03/04/21 07:35 Pulse Ox 94 03/04/21 07:20 Body Mass Index 38.3 <Alysa Thapa PA-C - Last Filed: 03/04/21 08:07> Const: General: comfortable, no acute distress and alert <Alysa Thapa PA-C - Last Filed: 03/04/21 08:07> Orientation/consciousness: patient oriented x3 <Alysa Thapa PA-C - Last Filed: 03/04/21 08:07> Eyes: Sclerae: sclerae normal <Alysa Thapa PA-C - Last Filed: 03/04/21 08:07> Resp: Effort & Inspection: normal respiratory effort <Alysa Thapa PA-C - Last Filed: 03/04/21 08:07> Cardio: Rate: regular rate <MARYCARMEN Beck Last Filed: 03/04/21 08:07> GI: Inspection: No distended and Yes incision (dressings c/d/i) <MARYCARMEN Beck Last Filed: 03/04/21 08:07> Palpation (GI): Soft to palpation, Tenderness to palpation present (GI) (RUQ/incision sites), no guarding and not rigid <Alysa Thapa PA-C - Last Filed: 03/04/21 08:07> Percussion: Yes normal to percussion <Alysa SwansonSUMIT crawleyKendall - Last Filed: 03/04/21 08:07> Skin: General skin exam: no rashes or lesions noted <Alysa SwansonSUMIT crawleyKendall - Last Filed: 03/04/21 08:07> Neuro: General: patient oriented x3 <Alysa AlanisSUMIT crawleyKendall - Last Filed: 03/04/21 08:07> Extrem: General: Yes no clubbing, cyanosis or edema <Alysa SwansonSUMIT crawleyKendall - Last Filed: 03/04/21 08:07> Procedures Date of Service Date of Service: 03/04/21 <Alysa Thapa PA-C - Last Filed: 03/04/21 08:07> Progress Note: A&P Assessment and plan (1) Chest pain: Status: Acute <SUMIT BeckKendall - Last Filed: 03/04/21 08:07> (2) HTN (hypertension): Status: Acute <SUMIT BeckKendall - Last Filed: 03/04/21 08:07> (3) Symptomatic cholelithiasis: Status: Acute <SUMIT BeckKendall - Last Filed: 03/04/21 08:07> (4) S/P laparoscopic cholecystectomy: Status: Acute <SUMIT BeckKendall - Last Filed: 03/04/21 08:07> Assessment and Plan: 81 year old male admitted following uncomplicated laparoscopic cholecystectomy for symptomatic cholelithiasis due to chest pain. EKG nonspecific changed, troponins have remained normal. Seen by coin machine assembler who felt it was likely due to his hypertension. This morning CP is improved. BP remains elevated. Will await coin machine assembler input today- if cleared, stable for discharge to home from surgical standpoint. F/u in office with Dr. Gonzáles, Dr. Sheehan for hypertension. <Alysa Thapa PA-C - Last Filed: 03/04/21 08:07> 81 year old male admitted following uncomplicated laparoscopic cholecystectomy for symptomatic cholelithiasis due to chest pain. EKG nonspecific changed, troponins have remained normal. Seen by coin machine assembler who felt it was likely due to his hypertension. This morning CP is improved. BP remains elevated. Will await coin machine assembler input today- if cleared, stable for discharge to home from surgical standpoint. F/u in office with Dr. Gonzáles, Dr. Sheehan for hypertension. As noted above patient does feel improved. He has some minor chest discomfort as well as right upper quadrant discomfort which appears to be postoperative pain. Wounds are clean and intact. Agree with the above assessment and plan. Repeat troponin levels normal. Possible discharge to home if cleared from cardiology standpoint. <Ferdinand Gonzáles MD - Last Filed: 03/04/21 09:01> Fall Risk Details Current Medications: Current Medications Generic Name Dose Route Start Last Admin Trade Name Freq PRN Reason Stop Dose Admin Acetaminophen 650 mg 03/03/21 13:50 Acetaminophen 325 Mg Tablet PO Q6H PRN Pain, Moderate (Pain Scale 4-6 Acetaminophen 975 mg 03/04/21 09:00 03/04/21 07:35 Acetaminophen 325 Mg Tablet PO 975 mg DAILY [facility] Administration Amlodipine Besylate 5 mg 03/04/21 09:00 Amlodipine Besylate 5 Mg Tablet PO DAILY [facility] Protocol Dextrose/Lactated Ringer's 1,000 mls @ 125 mls/hr 03/03/21 14:00 03/04/21 01:14 D5lr IVCONT 125 mls/hr .Q8H [facility] Administration Morphine Sulfate 4 mg 03/03/21 13:50 Morphine Sulfate 2 Mg/Ml Cartridge IVPUSH Q3H PRN Pain, Severe (Pain Scale 7-10) Protocol Nitroglycerin 0.4 mg 03/03/21 13:21 03/03/21 16:52 Nitroglycerin 0.4 Mg Tab.Subl SUBLINGUAL 0.4 mg Q5MX3 PRN Administration Chest Pain Nitroglycerin 1 inch 03/03/21 20:00 03/04/21 07:34 Nitroglycerin 2 % Oint 1 Gm Packet TRANSDERMA 1 inch RQ6H WHILE AWAKE [facility] Administration Omeprazole 40 mg 03/04/21 06:30 03/04/21 05:48 Omeprazole 40 Mg Capsule. PO 40 mg DAILY@0630 [facility] Administration Ondansetron HCl 4 mg 03/03/21 10:07 Ondansetron Hcl 4 Mg/2 Ml Vial IVPUSH ONCE PRN Nausea and Vomiting Ondansetron HCl 4 mg 03/03/21 13:50 Ondansetron Hcl 4 Mg/2 Ml Vial IVPUSH Q8H PRN Nausea and Vomiting Oxycodone HCl 5 mg 03/03/21 13:50 03/04/21 05:53 Oxycodone Hcl Immed Release 5 Mg Tablet PO 5 mg Q4H PRN Administration Pain, Moderate (Pain Scale 4-6 Pravastatin Sodium 80 mg 03/03/21 21:00 03/03/21 20:00 Pravastatin Sodium 80 Mg Tablet PO 80 mg BEDTIME [facility] Administration Sodium Chloride 3 ml 03/03/21 16:00 03/04/21 07:36 0.9 % Sodium Chloride Flush 3 Ml Syringe IVFLUSH Not Given QSHIFT [facility] Temazepam 15 mg 03/03/21 13:50 Temazepam 15 Mg Capsule PO BEDTIME PRN Insomnia Torsemide 20 mg 03/04/21 09:00 03/04/21 07:34 Torsemide 20 Mg Tablet PO 20 mg Q2D [facility] Administration Protocol <Alysa Thapa PA-C - Last Filed: 03/04/21 08:07> Time Spent With Patient Time: Total time spent is greater than 50% in coordination of care (as documented) at patient's floor/unit and/or counseling patient: <Alysa Thapa PA-C - Last Filed: 03/04/21 08:07> Time with patient: 15 - 24 minutes <MARYCARMEN Beck Last Filed: 03/04/21 08:07> Quality Stroke Does the patient have a stroke diagnosis?: No <Alysa Thapa PA-C - Last Filed: 03/04/21 08:07> VTE Prior VTE?: No <MARYCARMEN Beck Last Filed: 03/04/21 08:07> VTE Risk Level:: Surgical - high <MARYCARMEN Beck Last Filed: 03/04/21 08:07> VTE Device Contraindication: N/A - Device Ordered <MARYCARMEN Beck Last Filed: 03/04/21 08:07> VTE Drug Contraindication: N/A - Med Ordered <MARYCARMEN Beck Last Filed: 03/04/21 08:07>
--- NOTE | 2021-03-04 09:28 | HO.POSTANES ---
Post Anesthesia Evaluation Post Anesthesia Evaluation Vital Signs: Vital Signs Temp Pulse Resp BP Pulse Ox 03/04/21 07:35 66 168/64 H 03/04/21 07:20 98.2 F 66 20 168/64 H 94 03/04/21 03:14 97 F 66 18 180/71 H 95 03/03/21 23:47 97.4 F 67 18 167/70 H 95 Anesthesia: General Endotracheal-GETA Mental Status: Awake Pain Control: Satisfactory (C/o chest pain post-op in PACU. Troponins normal. Seen by cardiology. ?HTN as cause of chest pain. Some mild R-sided incisional pain today.) Nausea/Vomiting: None Hydration: Adequate Anesthesia-Related Issues: No Anes. Related Issues
--- NOTE | 2021-03-04 09:30 | MHC.CM.PN ---
CM met with Patient at bedside and addressed IMM with him, providing him with the original and placing a copy on the chart. Patient lives with his /HCP, who is a Nurse and he uses a cane to assist with mobility.Home/no services is the goal for dc and CM has initiated and will follow for dc planning. PCP is DR. Uday Sheehan.
--- NOTE | 2021-03-04 10:50 | PM.PNCARD ---
Subjective Subjective Date of Service: 03/04/21 Interval history: He is saying he is still has mild pressure-like feeling in his chest. This happened after eating breakfast. He had similar discomfort after eating last night. EKG has not shown any significant changes. Troponin levels are normal. Pressure is elevated. Physical Exam Vital Signs: Last Vital Signs Temp 98.2 F 03/04/21 07:20 Pulse 66 03/04/21 10:21 Resp 20 03/04/21 07:20 BP 168/64 H 03/04/21 10:21 Pulse Ox 96 03/04/21 10:07 Body Mass Index 38.3 ?GENERAL APPEARANCE: in no acute distress, pleasant. NECK: no carotid bruit, no jugular venous distention. SKIN: no suspicious lesions, warm and dry. HEART: no murmurs, regular rate and rhythm. LUNGS: clear to auscultation bilaterally. ABDOMEN: soft, Tender RUQ-post Op. EXTREMITIES: no edema. PERIPHERAL PULSES: equal. NEUROLOGIC: No gross deficits, AAO X 3 Results Labs and Meds Lab results: Laboratory Results - last 24 hr 03/03/21 03/03/21 13:11 18:54 Troponin I High Sens 12.5 13.0 Progress Note: A&P Assessment and plan (1) HTN (hypertension): Status: Acute (2) Chest pain: Status: Acute Assessment and Plan: 81-year-old gentleman who is status post cholecystectomy and developed chest discomfort and elevated blood pressures. His EKGs have been nonspecific. Troponin levels and active. He has persistent pressure-like feeling which gets worse when he eats. This is likely GI in origin. Blood pressure is elevated. I have increased his amlodipine to 5 mg. I will stop the nitro paste and put him on Imdur 30 mg once a day. If his blood pressure appears okay in the afternoon and if he wishes to go home then I think that is reasonable. He will need follow-up with his biological science technician Dr. Villalobos. Thank you for allowing me to participate in the care of your patient. Please feel free to contact me if you have any questions. Fall Risk Details Current Medications: Current Medications Generic Name Dose Route Start Last Admin Trade Name Freq PRN Reason Stop Dose Admin Acetaminophen 650 mg 03/03/21 13:50 Acetaminophen 325 Mg Tablet PO Q6H PRN Pain, Moderate (Pain Scale 4-6 Acetaminophen 975 mg 03/04/21 09:00 03/04/21 07:35 Acetaminophen 325 Mg Tablet PO 975 mg DAILY [facility] Administration Amlodipine Besylate 5 mg 03/05/21 09:00 Amlodipine Besylate 5 Mg Tablet PO DAILY [facility] Protocol Dextrose/Lactated Ringer's 1,000 mls @ 125 mls/hr 03/03/21 14:00 03/04/21 10:21 D5lr IVCONT 125 mls/hr .Q8H [facility] Administration Morphine Sulfate 4 mg 03/03/21 13:50 Morphine Sulfate 2 Mg/Ml Cartridge IVPUSH Q3H PRN Pain, Severe (Pain Scale 7-10) Protocol Nitroglycerin 0.4 mg 03/03/21 13:21 03/03/21 16:52 Nitroglycerin 0.4 Mg Tab.Subl SUBLINGUAL 0.4 mg Q5MX3 PRN Administration Chest Pain Omeprazole 40 mg 03/04/21 06:30 03/04/21 05:48 Omeprazole 40 Mg Capsule.Dr PO 40 mg DAILY@0630 [facility] Administration Ondansetron HCl 4 mg 03/03/21 10:07 Ondansetron Hcl 4 Mg/2 Ml Vial IVPUSH ONCE PRN Nausea and Vomiting Ondansetron HCl 4 mg 03/03/21 13:50 Ondansetron Hcl 4 Mg/2 Ml Vial IVPUSH Q8H PRN Nausea and Vomiting Oxycodone HCl 5 mg 03/03/21 13:50 03/04/21 05:53 Oxycodone Hcl Immed Release 5 Mg Tablet PO 5 mg Q4H PRN Administration Pain, Moderate (Pain Scale 4-6 Pravastatin Sodium 80 mg 03/03/21 21:00 03/03/21 20:00 Pravastatin Sodium 80 Mg Tablet PO 80 mg BEDTIME [facility] Administration Sodium Chloride 3 ml 03/03/21 16:00 03/04/21 07:36 0.9 % Sodium Chloride Flush 3 Ml Syringe IVFLUSH Not Given QSHIFT [facility] Temazepam 15 mg 03/03/21 13:50 Temazepam 15 Mg Capsule PO BEDTIME PRN Insomnia Torsemide 20 mg 03/04/21 09:00 03/04/21 07:34 Torsemide 20 Mg Tablet PO 20 mg Q2D [facility] Administration Protocol Time Spent With Patient Time: Total time spent is greater than 50% in coordination of care (as documented) at patient's floor/unit and/or counseling patient: Time with patient: 15 - 24 minutes Progress Note: Quality Stroke Does the patient have a stroke diagnosis?: No Procedures Date of Service Date of Service: 03/04/21
[2021-03-04] MEDS: Isosorbide Mononitrate 30 MG TAB.ER.24H PO (11:31)
--- NOTE | 2021-03-04 13:26 | PM.DS ---
DS: Providers Provider Date of Service: 03/04/21 Primary care physician: Uday Sheehan MD Attending physician on admission: Ferdinand Gonzáles Consults: 03/03/21 13:56 Consult to Cardiology Routine Consulting Provider: [facility] Cardi[facility] Reason for consultation: chest pain following laparoscopic cholecystectomy Attending physician on discharge: Ferdinand Gonzáles DS: Diagnosis Discharge Diagnosis (1) HTN (hypertension): Status: Acute (2) Chest pain: Status: Acute DS: Medications Discharge Medications Home Medications: Home Medications Medication Instructions Recorded Confirmed levothyroxine 88 mcg tablet 88 mcg PO 6XW 11/12/20 02/22/21 apixaban 5 mg tablet (Eliquis) 5 mg PO BID 02/09/21 02/22/21 omeprazole 40 mg capsule,delayed 40 mg PO DAILY 02/09/21 02/22/21 release pravastatin 80 mg tablet 80 mg PO BEDTIME 02/09/21 02/22/21 torsemide 20 mg tablet 20 mg PO Q2D 02/09/21 02/22/21 acetaminophen 500 mg tablet 1,000 mg PO QAM 02/22/21 02/22/21 (Tylenol Extra Strength) amlodipine 5 mg tablet 2.5 mg PO DAILY 02/22/21 02/22/21 cephalexin 500 mg capsule 1 cap PO QID 03/03/21 03/03/21 Previous Rx's Medication Instructions Recorded oxycodone 5 mg tablet 5 mg PO Q6H PRN #15 tab 03/03/21 DS: Summary Hospital Course Hospital Course: BRIEF HPI: 81-year-old male patient presenting with complaints of abdominal pain in the right upper quadrant found to have multiple large gallstones within the gallbladder.? Patient presents today for laparoscopic cholecystectomy. HOSPITAL COURSE: On 03/03/21, a laparoscopic cholecystectomy was performed by Dr. Gonzáles without complication. The patient tolerated the procedure well and was transferred to PACU for recovery. In PACU, he developed chest pain. He was seen by anesthesia who obtained an EKG and troponins (normal) and given nitroglycerin with some improvement. He was therefore admitted for further observation. A cardiology consult was obtained who felt the chest pain was secondary to his high blood pressure and resumed his home antihypertensives. The following day, the patient felt better with only mild chest pressure and more abdominal pain (incisional). He was tolerating a solid diet with some worsening in the pain. He was seen by cardiology who felt that the pain may be GI in nature but said he was stable for discharge to home if his SBP remained stable. The patient was reassessed later in the day. He felt improved and ready for discharge to home. His SBP remained in the 150s. He was discharged to home on 03/04/21. He is to follow up with his primary care provider and family educator upon discharge as well as Dr. Gonzáles in office. Status at Discharge Functional status at discharge: independent ambulation Overall status at discharge: patient is progressing back to baseline Time Spent with Patient Time attestation: Total time spent providing and/or coordinating discharge services: Discharge coordination time: Less than 30 minutes Quality: Stroke Does the patient have a stroke diagnosis?: No Physical Exam Vital Signs: Vital Signs: Last Vital Signs Temp 98.5 F 03/04/21 10:51 Pulse 63 03/04/21 11:31 Resp 18 03/04/21 10:51 BP 159/70 H 03/04/21 11:31 Pulse Ox 94 03/04/21 10:51 Body Mass Index 38.3 Const: General: comfortable, no acute distress and alert Orientation/consciousness: patient oriented x3 Resp: Effort & Inspection: normal respiratory effort Cardio: Rate: regular rate GI: Other: protuberant Inspection: No distended and Yes incision (dressings c/d/i) Skin: General skin exam: no rashes or lesions noted Neuro: General: patient oriented x3 Extrem: General: Yes no clubbing, cyanosis or edema DS: Data Data Completed and Pending Completed studies during hospitalization [Text1]: Pending at discharge 03/03/21 11:38 Surgical [PTH] Routine Labs on day of discharge: Laboratory Results - last 24 hr 03/03/21 03/03/21 13:11 18:54 Troponin I High Sens 12.5 13.0 Discharge Plan Discharge Patient Disposition: Home, Self-Care Referrals: Anyi Villalobos MD [Physician] - 1 Week Uday Sheehan MD [Primary Care Provider] - 1 Week Ferdinand Gonzáles MD [Physician] - 1 Week Discharge Medications: New oxycodone 5 mg tablet 5 mg PO Q6H PRN (Reason: pain) Qty: 15 RF: 0 Continued amlodipine 5 mg Tablet 2.5 mg PO DAILY RF: 0 acetaminophen [Tylenol Extra Strength] 500 mg Tablet 1,000 mg PO QAM RF: 0 cephalexin 500 mg capsule 1 cap PO QID RF: 0 pravastatin 80 mg tablet 80 mg PO BEDTIME RF: 0 omeprazole 40 mg capsule,delayed release(DR/EC) 40 mg PO DAILY RF: 0 torsemide 20 mg tablet 20 mg PO Q2D RF: 0 Held Eliquis 5 mg tablet 5 mg PO BID RF: 0 Hold Instructions: Resume on 03/05/21. Discharge Orders: Discharge Order (Routine); Ordered 03/03/21 Ordered By: Ferdinand Gonzáles Activity Restrictions/Additional Instructions: No lifting > 10 pounds for 2 weeks Remain on low fat diet for one month No driving for one week Ice to the incision x 24 hours Remove dressing in 3 days Follow up in office in one week.
--- NOTE | 2021-03-04 13:31 | MHC.CM.PN ---
Patient has been medically cleared for dc to home today, no services.IMM addressed this morning.
== END 2021-03-04 15:57 | disposition home or self-care (01) ==
LOC: HO.SSS 11:54 → HO.IMC 14:51
PROVIDERS: Anesthesiology; Internal Medicine Cardiovascular Disease; PCP Internal Medicine; Visit Provider Surgery
PROC: 0FT44ZZ Resection of Gallbladder, Percutaneous Endoscopic Approach (ICD-10-PCS; CPT 47562; principal; 2021-03-03 09:40)
DX: K80.12 Calculus of gallbladder with acute and chronic cholecystitis without obstruction (principal); R07.9 Chest pain, unspecified; I10 Essential (primary) hypertension; I48.91 Unspecified atrial fibrillation; K21.9 Gastro-esophageal reflux disease without esophagitis; G47.33 Obstructive sleep apnea (adult) (pediatric); Z79.01 Long term (current) use of anticoagulants; Z79.899 Other long term (current) drug therapy; Z88.8 Allergy status to other drugs, medicaments and biological substances
CPT/HCPCS: 47562; 36415; 84484; 88304; 93005; J0131; J1100; J2405; J3010

== ENCOUNTER → 2021-03-11 13:54 | Outpatient (BNVA) | payer MEDICARE, SELFPAY | PROVIDERS: PCP Internal Medicine; Visit Provider Surgery | DX: Z48.815 Encounter for surgical aftercare following surgery on the digestive system (principal); Z87.19 Personal history of other diseases of the digestive system | CPT/HCPCS: 99212 ==

== ENCOUNTER 2021-05-05 11:12 | Outpatient (REF) | payer MEDICARE, SELFPAY ==
[2021-05-05 14:08] LABS: Appearance Urine CLEAR; Glucose Urine UA NEG (NEG); Leukocyte Esterase Urine NEG (NEG); Nitrite Urine NEG (NEG); PH 5.5 (5.0-8.0); Specific Gravity - Urine >= 1.030 (1.005-1.025); Urine Blood NEG (NEG); Urine Ketones NEG (NEG); Urine Protein 1+ MG/DL (NEG-TRACE)
[2021-05-05 14:11] LABS: Color Urine YELLOW
[2021-05-05 14:24] LABS: Hematocrit 42.1 % (42-52); Hemoglobin 13.5 g/dl (14.0-18.0); Mean Corpuscular HGB Conc 32.1 g/dl (31.0-36.0); Mean Corpuscular Hemoglobin 29.7 pg (27.0-33.0); Mean Corpuscular Volume 92.7 fL (80-98); Mean Platelet Volume 10.8 fL (9.4-12.4); Platelet Count 123 X10*3/uL (160-400); Red Blood Count 4.54 X10*6/uL (4.60-5.80); Red Cell Distribution Width 14.1 % (11.0-16.0); White Blood Count 5.4 X10*3/uL (4.8-10.8)
[2021-05-05 14:42] LABS: Anion Gap 13 (12-20); Blood Urea Nitrogen 17 mg/dL (9-16); Calcium 8.6 mg/dL (8.4-10.2); Carbon Dioxide 26 mmol/L (22-29); Chloride 106 mmol/L (96-108); Estimated Glomerular Filt Rate 45; Glucose Fasting 112 mg/dL (60-99); Iron 62 mcg/dL (45-160); Magnesium 2.2 mg/dL (1.6-2.6); Percent Iron Saturation 16 % (15-50); Phosphorus 2.7 mg/dL (2.7-4.5); Potassium 4.2 mmol/L (3.3-5.1); Sodium 141 mmol/L (135-145); Total Iron Binding Capacity 384 mcg/dL (228-428); Unsaturated Iron Binding 322 ug/dL
[2021-05-05 14:47] LABS: Protein/Creatinine Ratio, Ur 0.17 (<0.2); Total Protein Urine Random 42 mg/dL (<12)
[2021-05-05 14:51] LABS: Ferritin 35 ng/mL (20-250)
[2021-05-05 15:06] LABS: Bacteria Urine TRACE /LPF; Mucus Urine 1+ /LPF; RBC Urine 0-2 /HPF (0); Squamous Epithelial Cell Urine TRACE /LPF; WBC Urine 0-2 /HPF (0-4)
[2021-05-07 10:32] LABS: Calcium (PTHI) 8.8 mg/dL (8.6-10.3); PTHI 117 pg/mL (14-64)
== END 2021-05-05 11:13 | disposition home or self-care (01) ==
LOC: HO.10HDL 11:12
PROVIDERS: Absent Provider Internal Medicine Cardiovascular Disease; PCP Internal Medicine; Visit Provider Internal Medicine Nephrology
DX: N18.30 Chronic kidney disease, stage 3 unspecified (principal)
CPT/HCPCS: 36415; 80051; 81001; 82310; 82565; 82728; 82947; 83540; 83735; 83970; 84100; 84156; 84520; 85027

== ENCOUNTER 2021-08-03 09:50 | Emergency (ER) | payer MEDICARE, SELFPAY ==
--- NOTE | 2021-08-03 | ECG_ITS ---
Test Reason : irregular heart beat Blood Pressure : / mmHG Vent. Rate : 123 BPM Atrial Rate : 123 BPM P-R Int : 176 ms QRS Dur : 124 ms QT Int : 310 ms P-R-T Axes : 000 -30 035 degrees QTc Int : 443 ms Atrial flutter with 2 to 1 block Left axis deviation RSR' or QR pattern in V1 suggests right ventricular conduction delay Left ventricular hypertrophy with QRS widening ( R in aVL , Wilman product ) Abnormal ECG When compared with ECG of 03-MAR-2021 12:49, Atrial flutter with 2 to 1 block has replaced Normal sinus rhythm Referred By: Generic ED Physician Electronically Signed By:WON PURCELL MD
--- NOTE | ~2021-08-03 | XR_ITS ---
EXAMINATION: XR CHEST CLINICAL INFORMATION: Chest pain COMPARISON: Previous chest x-ray most recent February 2021 TECHNIQUE: 2 views of the chest were obtained. FINDINGS: The cardiac silhouette is enlarged but stable. Hilar and mediastinal contours are unremarkable. The lungs are clear. There is no pleural effusion or pneumothorax. There are degenerative changes of the spine. XR/XR chest 2V IMPRESSION: Stable enlargement of the cardiac silhouette. No evidence for acute disease in the chest.
--- NOTE | ~2021-08-03 | NM_ITS ---
EXAMINATION: NM LUNG IMAGE PERFUSION CLINICAL INFORMATION: Elevated blood pressure, heart rate or concern for PE. COMPARISON: None TECHNIQUE: Following intravenous administration of 4 mCi of 90 9M technetium MAA, imaging of both lungs were obtained multiple projections. FINDINGS: On perfusion exam there is normal flow seen to all segments of the lung. No subsegmental or segmental defects seen. Ventilation study was not performed. On recent chest x-ray 08/03/2021 there is an enlarged heart. NM/NM pul perfusion IMPRESSION: Nonsegmental defect corresponding to enlarged heart. No segmental or subsegmental defects seen. Findings suggestive of low probability for PE.
--- NOTE | 2021-08-03 10:01 | ED_ITS ---
HPI - Arrhythmia/Palpitations General Chief Complaint: Arrhythmia/Palpitations <MARKO Troncoso Last Filed: 08/03/21 17:38> Stated Complaint: abdnormal EKG <MARKO Troncoso - Last Filed: 08/03/21 17:38> Time Seen by Provider: 08/03/21 10:01 <MARKO Troncoso Last Filed: 08/03/21 17:38> Source: patient and EMS <MARKO Troncoso Last Filed: 08/03/21 17:38> Mode of arrival: EMS <MARKO Troncoso Last Filed: 08/03/21 17:38> Limitations: no limitations <MARKO Troncoso Last Filed: 08/03/21 17:38> History of Present Illness HPI narrative: Patient is an 81 year old male presenting to the emergency department today with a rapid heart rate. Patient states that he is concerned that his heart rate is rapid, because he has a history of atrial fibrillation, for which he has had 2 ablations. Patient states he takes Eliquis. Patient states this happened yesterday, and went away on its own. However, today it seems to be staying around. Patient states he feels anxious about being back in atrial fibrillation. Patient denies any dizziness, lightheadedness, abdominal pain, nausea, vomiting, fever, chills, blurry vision, double vision, loss of vision, chest pain, difficulty breathing, shortness of breath, back pain, night sweats, pain with urination, increased urinary frequency, increased urinary urgency, blood in his urine or stool, syncope or a near syncopal episode, recent trauma or falls, bowel incontinence, bladder incontinence, bowel retention, bladder retention, or any other complaints at this time. <MARKO Troncoso Last Filed: 08/03/21 17:38> MD complaint: irregular heart beat <MARKO Troncoso Last Filed: 08/03/21 17:38> Onset (ago): day(s) <MARKO Troncoso Last Filed: 08/03/21 17:38> Duration: intermittent <MARKO Troncoso Last Filed: 08/03/21 17:38> Severity: mild <MARKO Troncoso Last Filed: 08/03/21 17:38> Context: occurred during rest <MARKO Troncoso - Last Filed: 08/03/21 17:38> Arrhythmia history: atrial fibrillation, on anti-coagulants and history of ablation (Twice) <MARKO Troncoso - Last Filed: 08/03/21 17:38> Associated symptoms: denies other symptoms <MARKO Troncoso - Last Filed: 08/03/21 17:38> Related Data Home Medications: Home Medications Medication Instructions Recorded Confirmed levothyroxine 88 mcg tablet 88 mcg PO MOTUWETHFRSA@0600 11/12/20 08/03/21 apixaban 5 mg tablet 5 mg PO BID 02/09/21 08/03/21 (Eliquis) omeprazole 40 mg 40 mg PO BID@0630,1630 02/09/21 08/03/21 capsule,delayed release pravastatin 80 mg tablet 80 mg PO BEDTIME 02/09/21 08/03/21 torsemide 20 mg tablet 20 mg PO Q3D 02/09/21 08/03/21 acetaminophen 500 mg tablet 1,000 mg PO BEDTIME 02/22/21 08/03/21 (Tylenol Extra Strength) acetaminophen 500 mg tablet 500 mg PO DAILY 08/03/21 08/03/21 levothyroxine 88 mcg tablet 132 mcg PO KAPLAN@0600 08/03/21 08/03/21 oxycodone 5 mg tablet 5 mg PO BEDTIME PRN 08/03/21 08/03/21 <MARKO Troncoso - Last Filed: 08/03/21 17:38> Allergies/Adverse Reactions: Allergies Allergy/AdvReac Type Severity Reaction Status Date / Time ibuprofen Allergy Intermediate HIVES Verified 08/03/21 17:56 [IBUPROFEN] hydromorphone AdvReac Intermediate ILEUS Verified 08/03/21 17:56 [From DILAUDID] procaine [From AdvReac Intermediate has no Verified 08/03/21 17:56 Novocain] numbing effect-states monocain works narcotic pain AdvReac Intermediate does not Uncoded 08/03/21 17:56 meds relieve pain per patient <MARKO Troncoso - Last Filed: 08/03/21 17:38> Review of Systems Verdana 4l Constitutional: Verdana 4d Verdana 4d Constitutional: Verdana 4d Reports no additional constitutional complaints, Denies chills, Denies fever(s) and Denies night sweats Verdana 4Il <MARKO Troncoso Last Filed: 08/03/21 17:38> Verdana 4d Verdana 4l Eyes: Verdana 4d Verdana 4d Eyes: Verdana 4d Reports no additional eye complaints, Denies blurry vision, Denies change in vision, Denies diplopia, Denies eye discharge, Denies loss of vision and Denies eye pain Verdana 4Il <MARKO Troncoso - Last Filed: 17:38> ENT: Denies dizziness <MARKO Troncoso - Last Filed: 08/03/21 17:38> Cardiovascular: Cardiovascular: Reports no additional cardiovascular complaints, Denies chest pain, Reports rapid heart rate, Reports irregular heart rhythm, Denies lightheadedness, Denies Loss of Consciousness and Denies dyspnea <MARKO Troncoso Last Filed: 08/03/21 17:38> Respiratory: Respiratory: Reports no additional respiratory complaints and Denies dyspnea <MARKO Troncoso - Last Filed: 08/03/21 17:38> Gastrointestinal: Gastrointestinal: Reports no additional gastrointestinal complaints, Denies abdominal pain, Denies melena, Denies hematochezia, Denies change in bowel habits and Denies change in stool character <MARKO Troncoso Last Filed: 08/03/21 17:38> Genitourinary: Genitourinary: Reports no additional male genitourinary complaints, Denies hematuria, Denies oliguria, Denies difficulty urinating, Denies dysuria, Denies urinary frequency, Denies urinary hesitancy, Denies urinary incontinence and Denies urinary urgency <MARKO Troncoso - Last Filed: 08/03/21 17:38> Musculoskeletal: Musculoskeletal: Reports no additional musculoskeletal complaints, Denies numbness and Denies tingling <MARKO Troncoso - Last Filed: 08/03/21 17:38> Neurologic: Denies dizziness, Denies loss of vision, Denies numbness and Denies tingling <MARKO Troncoso - Last Filed: 08/03/21 17:38> Psychiatric: Psychiatric: Reports no additional psychiatric complaints <MARKO Troncoso - Last Filed: 08/03/21 17:38> Endocrine: Endocrine: Reports no additional endocrine complaints <MARKO Troncoso - Last Filed: 08/03/21 17:38> Hematologic/Lymphatic: Hematologic/Lymphatic: Reports no additional hematologic/lymphatic complaints <MARKO Troncoso - Last Filed: 08/03/21 17:38> Allergic/Immunologic: Allergic/Immunologic: Reports no additional allergic/immunologic complaints <MARKO Troncoso - Last Filed: 08/03/21 17:38> [facility] Past Medical History Attestation statement: The following information was validated with the patient. <MARKO Troncoso - Last Filed: 08/03/21 17:38> Source: old records reviewed <MARKO Troncoso - Last Filed: 08/03/21 17:38> Medical History: Medical History Atrial fibrillation BPH loc w urin obs/LUTS Chest pain COVID-19 vaccine series completed Elevated PSA Facet arthropathy, cervical GERD (gastroesophageal reflux disease) HTN (hypertension) Hyperlipidemia On anticoagulant therapy Renal stones Sleep apnea Symptomatic cholelithiasis Thyroid disease <MARKO Troncoso - Last Filed: 08/03/21 17:38> Surgical History: Surgical History H/O colonoscopy History of surgery History of total replacement of both hip joints Hx of arthroscopic knee surgery Hx of cataract extraction Hx of cystoscopy S/P laparoscopic cholecystectomy <MAROK Troncoso - Last Filed: 08/03/21 17:38> Social History Social History: Social History Household Members: Spouse Housing: House Are you a primary nurse behavioral health care to a significant other at home: No Do you presently have visiting nurse or other home services: No Alcohol intake: never Patient Tobacco Use Status: Never used Tobacco Advance Directives: Yes Advance Directives Information Provided: No Advance Directives on File: No service: No Current occupational status: retired <MARKO Troncoso - Last Filed: 08/03/21 17:38> Physical Exam Verdana 4l Vital Signs: Verdana 4d Verdana 4d Vital Signs: Verdana 4d Verdana 4Bd Last Vital Signs Verdana 4d Sleeve Setter New 4d Sleeve Setter New 4d Temp 98.9 F 08/03/21 10:10 Sleeve Setter New 4d Pulse 121 H 08/03/21 12:10 Sleeve Setter New 4d Resp 12 08/03/21 11:29 BP 177/109 H 08/03/21 12:10 Pulse Ox 97 08/03/21 12:10 BMI result Body Mass Index 35.6 <MARKO Troncoso - Last Filed: 08/03/21 17:38> Vital Signs: Last Vital Signs Temp 98.9 F 08/03/21 10:10 Pulse 121 H 08/03/21 12:10 Resp 12 08/03/21 11:29 BP 177/109 H 08/03/21 12:10 Pulse Ox 97 08/03/21 12:10 BMI result Body Mass Index 35.6 <Dani Araujo MD - Last Filed: 08/04/21 09:11> Const: General: cooperative, no acute distress, alert and awake <MARKO Troncoso - Last Filed: 08/03/21 17:38> Nutritional Appearance: well nourished <MARKO Troncoso - Last Filed: 08/03/21 17:38> Orientation/consciousness: patient oriented x3 <MARKO Troncoso - Last Filed: 08/03/21 17:38> Limitations: no limitations <MARKO Troncoso Last Filed: 08/03/21 17:38> HENMT: Head: Yes normal to inspection and Yes atraumatic <MARKO Troncoso - Last Filed: 08/03/21 17:38> Ears: hearing grossly normal bilaterally and external ears normal <MARKO Troncoso - Last Filed: 08/03/21 17:38> General nose exam: Normal external nose present, no nasal discharge noted and no epistaxis <MARKO Troncoso - Last Filed: 08/03/21 17:38> Face and sinus: Yes normal facial exam, No abrasion and No laceration <MARKO Troncoso - Last Filed: 08/03/21 17:38> Mouth: Normal oral and palatal mucosa present, no drooling and no muffled voice <Chani Quintanilla PA - Last Filed: 08/03/21 17:38> Eyes: General: appearance normal, both eyes and all related structures <Chani Quintanilla PA - Last Filed: 08/03/21 17:38> Periorbital: periorbital findings normal <Chani Quintanilla PA - Last Filed: 08/03/21 17:38> Eyelids: Yes eyelids normal <Chani Quintanilla PA - Last Filed: 08/03/21 17:38> Conjunctivae: conjunctivae normal <Chani Quintanilla, PA - Last Filed: 08/03/21 17:38> Pupils: Equal, round and reactive pupils present <Chani Quintanilla PA - Last Filed: 08/03/21 17:38> EOM: EOMs intact bilaterally <Chani Quintanilla PA - Last Filed: 08/03/21 17:38> Neck: Neck: Yes normal visual inspection, Yes full ROM and Yes no lymphadenopathy <Chani Quintanilla PA - Last Filed: 08/03/21 17:38> Chest: Chest palpation & inspection: normal inspection of the chest <Chani Quintanilla PA - Last Filed: 08/03/21 17:38> Resp: Effort & Inspection: normal respiratory effort and able to speak in complete sentences <Chani Quintanilla PA - Last Filed: 08/03/21 17:38> Auscultation: clear to auscultation bilaterally <Chani Quintanilla PA - Last Filed: 08/03/21 17:38> Cardio: Rate: tachycardic <Chani Quintanilla PA - Last Filed: 08/03/21 17:38> Rhythm: regular rhythm <Chani Quintanilla PA - Last Filed: 08/03/21 17:38> GI: Inspection: Yes normal to inspection <Chani Quintanilla PA - Last Filed: 08/03/21 17:38> Neuro: General: patient oriented x3 and moves all extremities <Chani Quintanilla PA - Last Filed: 08/03/21 17:38> Cranial nerves: Yes Equal, round and reactive pupils present <Chani Quintanilla PA - Last Filed: 08/03/21 17:38> Cognition (Neuro): normal cognition <Chani Quintanilla MARKO - Last Filed: 17:38> Motor exam (neuro): 5/5 motor strength present throughout <MARKO Troncoso - Last Filed: 08/03/21 17:38> Sensory Exam: Normal double simultaneous stimulation for sensation <Chani Quintanilla MARKO - Last Filed: 08/03/21 17:38> Coordination: [id number] test normal <Chani Quintanilla MARKO - Last Filed: 08/03/21 17:38> Extrem: General: Yes normal to inspection, Yes full ROM and Yes capillary refill normal <Chani Quintanilla MARKO - Last Filed: 08/03/21 17:38> Psych: Appearance: grossly normal <Chani Quintanilla MARKO - Last Filed: 08/03/21 17:38> Mental Status: mental status grossly normal <Chani Quintanilla MARKO - Last Filed: 08/03/21 17:38> Affect: Anxious affect present <Chani Quintanilla MARKO - Last Filed: 08/03/21 17:38> Attitude: cooperative <Chani Quintanilla MARKO - Last Filed: 08/03/21 17:38> Thought process: Normal thought process present <Chani Quintanilla MARKO - Last Filed: 08/03/21 17:38> Thought content: Normal thought content present <Chani Quintanilla MARKO - Last Filed: 08/03/21 17:38> Insight: Good insight present (Psych) <Chani Quintanilla MARKO - Last Filed: 08/03/21 17:38> Course Course Course Narrative: Patient's chest x-ray showed a stable enlarged cardiac silhouette but was otherwise unremarkable. Patient's V/Q scan showed no signs of PE. <Chani Quintanilla MARKO - Last Filed: 08/03/21 17:38> Reevaluation(s) Reevaluation #1: Upon chart review, after the patient was discharged, it was noted that the patient's EKG read was updated to reflect atrial flutter with a 2-1 block. I attempted to contact the patient at [phone]. The patient did not answer however, I left a voicemail urging the patient to return to the emergency department immediately. <ChaniMARKO Cedillo - Last Filed: 08/03/21 17:38> Time: 16:00 <MARKO Troncoso - Last Filed: 08/03/21 17:38> Reevaluation #2: Patient called the Department back, states that he will be here at approximately 6:15 p.m. this evening. <MARKO Troncoso - Last Filed: 08/03/21 17:38> Time: 17:15 <MARKO Troncoso - Last Filed: 08/03/21 17:38> Reevaluation #3: Report on this patient was given to Ana VIVAR. <MARKO Troncoso - Last Filed: 08/03/21 17:38> MDM - Arrhythmia/Palpitations MDM Narrative Medical decision making narrative: Patient is an 81 year old male presenting to the emergency department today with a rapid heart rate. Patient's physical exam showed tachycardia and an anxious 81-year-old male but was otherwise unremarkable. Patient's blood work showed a chronic elevated creatinine. Patient's EKG showed and was read as sinus tachycardia with occasional PVCs. However, during my chart review after the patient's discharge, the patient's EKG was updated to be read as atrial flutter with a 2-1 block. Patient's chest x-ray showed a stable enlarged cardiac silhouette but was otherwise unremarkable. Patient's V/Q scan showed no signs of PE. Patient was given IV fluids, and a total of 25 mg of metoprolol. I explained my physical exam findings as well as all test results to the patient. I answered all questions asked by the patient. I stressed the importance of the patient taking his medication as prescribed. 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 I stressed the importance of the patient returning to the emergency department immediately if his symptoms were to worsen or if he were to develop any dizziness, shortness of breath, difficulty breathing, chest pain, blurry vision, loss of vision, nausea, vomiting, abdominal pain, fever, chills, back pain, or any other complaints. Patient verbalized agreement and understanding with this treatment plan and discharge. Due to the patient's updated EKG findings, the patient was called and informed to come back to the emergency department. Patient returned the phone call the department and stated he would return at approximately 1815 this evening. Report on this patient was given to Ana VIVAR. <MARKO Troncoso - Last Filed: 08/03/21 17:38> Patient is an 81 year old male presenting to the emergency department today with a rapid heart rate. Patient's physical exam showed tachycardia and an anxious 81-year-old male but was otherwise unremarkable. Patient's blood work showed a chronic elevated creatinine. Patient's EKG showed and was read as sinus tachycardia with occasional PVCs. However, during my chart review after the patient's discharge, the patient's EKG was updated to be read as atrial flutter with a 2-1 block. Patient's chest x-ray showed a stable enlarged cardiac silhouette but was otherwise unremarkable. Patient's V/Q scan showed no signs of PE. Patient was given IV fluids, and a total of 25 mg of metoprolol. I explained my physical exam findings as well as all test results to the patient. I answered all questions asked by the patient. I stressed the importance of the patient taking his medication as prescribed. 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 I stressed the importance of the patient returning to the emergency department immediately if his symptoms were to worsen or if he were to develop any dizziness, shortness of breath, difficulty breathing, chest pain, blurry vision, loss of vision, nausea, vomiting, abdominal pain, fever, chills, back pain, or any other complaints. Patient verbalized agreement and understanding with this treatment plan and discharge. Due to the patient's updated EKG findings, the patient was called and informed to come back to the emergency department. Patient returned the phone call the department and stated he would return at approximately 1815 this evening. Report on this patient was given to Ana VIVAR. Attending: The initial EKG on this patient was never shown to me for review until after the patient had been discharged. I was unaware of the patient until after the patient had been discharged. Given the appearance of the initial EKG, atrial flutter would have been suspected. <Dani Araujo MD - Last Filed: 08/04/21 09:11> Differential Diagnosis Differential diagnosis: Likely anxiety, sinus tachycardia, artial fibrillation and ventricular premature beats <MARKO Troncoso - Last Filed: 08/03/21 17:38> Medical Records Attestation: I reviewed the patient's medical records. <MARKO Troncoso - Last Filed: 08/03/21 17:38> Lab Data Attestation: I reviewed the patient's lab results. <MARKO Troncoso - Last Filed: 08/03/21 17:38> Result diagrams: : 08/03/21 10:32 08/03/21 10:32 <MARKO Troncoso - Last Filed: 08/03/21 17:38> Labs: Lab Results 08/03/21 08/03/21 08/03/21 Range/Units 10:32 10:32 10:32 WBC 5.7 (4.8-10.8) X10*3/uL RBC 4.89 (4.60-5.80) X10*6/uL Hgb 14.2 (14.0-18.0) g/dl Hct 43.4 (42.0-52.0) % MCV 88.8 (80.0-98.0) fL MCH 29.0 (27.0-33.0) pg MCHC 32.7 (31.0-36.0) g/dl RDW 14.1 (11.0-16.0) % Plt Count 141 L (160-400) X10*3/uL MPV 10.4 (9.4-12.4) fL Immature Gran % (Auto) 0.2 (0.0-0.4) % Neut % (Auto) 65.8 (45-73) % Lymph % (Auto) 19.9 L (20-40) % [place] % (Auto) 12.7 H (2-11) % Eos % (Auto) 0.7 (0-4) % Baso % (Auto) 0.7 (0-2) % Lymph # (Auto) 1.1 L (1.2-4.9) X10*3/uL [place] # (Auto) 0.7 (0.1-1.2) X10*3/uL Eos # (Auto) 0.0 (0.0-0.4) X10*3/uL Baso # (Auto) 0.0 (0.0-0.2) X10*3/uL Abs Immat Gran (auto) 0.01 (0.00-0.03) X10*3/uL Absolute Neuts (auto) 3.8 (2.0-8.3) x10*3/uL Absolute Nucleated RBC 0.000 (0.0-0.012) X10*3/uL Nucleated RBC % (auto) 0.0 (0.0-0.2) /100WBC PT 17.7 H (9.9-13.0) SEC INR 1.5 H (0.9-1.1) APTT 49.9 H (24.1-38.0) SEC Sodium 142 (135-145) mmol/L Potassium 3.9 (3.3-5.1) mmol/L Chloride 105 (96-108) mmol/L Carbon Dioxide 24 (22-29) mmol/L Anion Gap 17 (12-20) BUN 21 H (9-16) mg/dL Creatinine 1.72 H (0.5-1.4) mg/dL Estim Creat Clear Calc 44.9 Estimated GFR 38 Fasting Glucose 107 H (60-99) mg/dL Lactic Acid (0.5-2.0) mmol/L Calcium 9.4 D (8.4-10.2) mg/dL Magnesium 2.0 (1.6-2.6) mg/dL Total Bilirubin 0.6 (0.0-1.0) mg/dL AST 20 (5-37) U/L ALT 14 (0-40) U/L Alkaline Phosphatase 77 (39-117) U/L Troponin I High Sens (<3.5-35.0) ng/L Total Protein 7.3 (6.5-8.0) g/dL Albumin 4.1 (3.5-5.0) g/dL Urine Color Urine Appearance Urine pH (5.0-8.0) Ur Specific [place] (1.005-1.025) Urine Protein (NEG-TRACE) MG/DL Urine Glucose (UA) (NEG) MG/DL Urine Ketones (NEG) MG/DL Urine Blood (NEG) Urine Nitrite (NEG) Ur Leukocyte Esterase (NEG) Urine RBC (0) /HPF Urine WBC (0-4) /HPF Ur Squamous Epith Cells /LPF Urine Bacteria /LPF 08/03/21 08/03/21 08/03/21 Range/Units 10:32 10:32 15:01 WBC (4.8-10.8) X10*3/uL RBC (4.60-5.80) X10*6/uL Hgb (14.0-18.0) g/dl Hct (42.0-52.0) % MCV (80.0-98.0) fL MCH (27.0-33.0) pg MCHC (31.0-36.0) g/dl RDW (11.0-16.0) % Plt Count (160-400) X10*3/uL MPV (9.4-12.4) fL Immature Gran % (Auto) (0.0-0.4) % Neut % (Auto) (45-73) % Lymph % (Auto) (20-40) % [place] % (Auto) (2-11) % Eos % (Auto) (0-4) % Baso % (Auto) (0-2) % Lymph # (Auto) (1.2-4.9) X10*3/uL [place] # (Auto) (0.1-1.2) X10*3/uL Eos # (Auto) (0.0-0.4) X10*3/uL Baso # (Auto) (0.0-0.2) X10*3/uL Abs Immat Gran (auto) (0.00-0.03) X10*3/uL Absolute Neuts (auto) (2.0-8.3) x10*3/uL Absolute Nucleated RBC (0.0-0.012) X10*3/uL Nucleated RBC % (auto) (0.0-0.2) /100WBC PT (9.9-13.0) SEC INR (0.9-1.1) APTT (24.1-38.0) SEC Sodium (135-145) mmol/L Potassium (3.3-5.1) mmol/L Chloride (96-108) mmol/L Carbon Dioxide (22-29) mmol/L Anion Gap (12-20) BUN (9-16) mg/dL Creatinine (0.5-1.4) mg/dL Estim Creat Clear Calc Estimated GFR Fasting Glucose (60-99) mg/dL Lactic Acid 1.3 (0.5-2.0) mmol/L Calcium (8.4-10.2) mg/dL Magnesium (1.6-2.6) mg/dL Total Bilirubin (0.0-1.0) mg/dL AST (5-37) U/L ALT (0-40) U/L Alkaline Phosphatase (39-117) U/L Troponin I High Sens 36.2 H (<3.5-35.0) ng/L Total Protein (6.5-8.0) g/dL Albumin (3.5-5.0) g/dL Urine Color YELLOW Urine Appearance CLEAR Urine pH 6.5 (5.0-8.0) Ur Specific [place] 1.020 (1.005-1.025) Urine Protein TRACE (NEG-TRACE) MG/DL Urine Glucose (UA) NEG (NEG) MG/DL Urine Ketones 5 (NEG) MG/DL Urine Blood 3+ H (NEG) Urine Nitrite NEG (NEG) Ur Leukocyte Esterase NEG (NEG) Urine RBC 5-9 H (0) /HPF Urine WBC 1-4 (0-4) /HPF Ur Squamous Epith Cells TRACE /LPF Urine Bacteria NONE /LPF <MARKO Troncoso - Last Filed: 08/03/21 17:38> Lab Results 08/03/21 08/03/21 08/03/21 Range/Units 10:32 10:32 10:32 WBC 5.7 (4.8-10.8) X10*3/uL RBC 4.89 (4.60-5.80) X10*6/uL Hgb 14.2 (14.0-18.0) g/dl Hct 43.4 (42.0-52.0) % MCV 88.8 (80.0-98.0) fL MCH 29.0 (27.0-33.0) pg MCHC 32.7 (31.0-36.0) g/dl RDW 14.1 (11.0-16.0) % Plt Count 141 L (160-400) X10*3/uL MPV 10.4 (9.4-12.4) fL Immature Gran % (Auto) 0.2 (0.0-0.4) % Neut % (Auto) 65.8 (45-73) % Lymph % (Auto) 19.9 L (20-40) % [place] % (Auto) 12.7 H (2-11) % Eos % (Auto) 0.7 (0-4) % Baso % (Auto) 0.7 (0-2) % Lymph # (Auto) 1.1 L (1.2-4.9) X10*3/uL [place] # (Auto) 0.7 (0.1-1.2) X10*3/uL Eos # (Auto) 0.0 (0.0-0.4) X10*3/uL Baso # (Auto) 0.0 (0.0-0.2) X10*3/uL Abs Immat Gran (auto) 0.01 (0.00-0.03) X10*3/uL Absolute Neuts (auto) 3.8 (2.0-8.3) x10*3/uL Absolute Nucleated RBC 0.000 (0.0-0.012) X10*3/uL Nucleated RBC % (auto) 0.0 (0.0-0.2) /100WBC PT 17.7 H (9.9-13.0) SEC INR 1.5 H (0.9-1.1) APTT 49.9 H (24.1-38.0) SEC Sodium 142 (135-145) mmol/L Potassium 3.9 (3.3-5.1) mmol/L Chloride 105 (96-108) mmol/L Carbon Dioxide 24 (22-29) mmol/L Anion Gap 17 (12-20) BUN 21 H (9-16) mg/dL Creatinine 1.72 H (0.5-1.4) mg/dL Estim Creat Clear Calc 44.9 Estimated GFR 38 Fasting Glucose 107 H (60-99) mg/dL Lactic Acid (0.5-2.0) mmol/L Calcium 9.4 D (8.4-10.2) mg/dL Magnesium 2.0 (1.6-2.6) mg/dL Total Bilirubin 0.6 (0.0-1.0) mg/dL AST 20 (5-37) U/L ALT 14 (0-40) U/L Alkaline Phosphatase 77 (39-117) U/L Troponin I High Sens (<3.5-35.0) ng/L Total Protein 7.3 (6.5-8.0) g/dL Albumin 4.1 (3.5-5.0) g/dL Urine Color Urine Appearance Urine pH (5.0-8.0) Ur Specific [place] (1.005-1.025) Urine Protein (NEG-TRACE) MG/DL Urine Glucose (UA) (NEG) MG/DL Urine Ketones (NEG) MG/DL Urine Blood (NEG) Urine Nitrite (NEG) Ur Leukocyte Esterase (NEG) Urine RBC (0) /HPF Urine WBC (0-4) /HPF Ur Squamous Epith Cells /LPF Urine Bacteria /LPF 08/03/21 08/03/21 08/03/21 Range/Units 10:32 10:32 15:01 WBC (4.8-10.8) X10*3/uL RBC (4.60-5.80) X10*6/uL Hgb (14.0-18.0) g/dl Hct (42.0-52.0) % MCV (80.0-98.0) fL MCH (27.0-33.0) pg MCHC (31.0-36.0) g/dl RDW (11.0-16.0) % Plt Count (160-400) X10*3/uL MPV (9.4-12.4) fL Immature Gran % (Auto) (0.0-0.4) % Neut % (Auto) (45-73) % Lymph % (Auto) (20-40) % [place] % (Auto) (2-11) % Eos % (Auto) (0-4) % Baso % (Auto) (0-2) % Lymph # (Auto) (1.2-4.9) X10*3/uL [place] # (Auto) (0.1-1.2) X10*3/uL Eos # (Auto) (0.0-0.4) X10*3/uL Baso # (Auto) (0.0-0.2) X10*3/uL Abs Immat Gran (auto) (0.00-0.03) X10*3/uL Absolute Neuts (auto) (2.0-8.3) x10*3/uL Absolute Nucleated RBC (0.0-0.012) X10*3/uL Nucleated RBC % (auto) (0.0-0.2) /100WBC PT (9.9-13.0) SEC INR (0.9-1.1) APTT (24.1-38.0) SEC Sodium (135-145) mmol/L Potassium (3.3-5.1) mmol/L Chloride (96-108) mmol/L Carbon Dioxide (22-29) mmol/L Anion Gap (12-20) BUN (9-16) mg/dL Creatinine (0.5-1.4) mg/dL Estim Creat Clear Calc Estimated GFR Fasting Glucose (60-99) mg/dL Lactic Acid 1.3 (0.5-2.0) mmol/L Calcium (8.4-10.2) mg/dL Magnesium (1.6-2.6) mg/dL Total Bilirubin (0.0-1.0) mg/dL AST (5-37) U/L ALT (0-40) U/L Alkaline Phosphatase (39-117) U/L Troponin I High Sens 36.2 H (<3.5-35.0) ng/L Total Protein (6.5-8.0) g/dL Albumin (3.5-5.0) g/dL Urine Color YELLOW Urine Appearance CLEAR Urine pH 6.5 (5.0-8.0) Ur Specific [place] 1.020 (1.005-1.025) Urine Protein TRACE (NEG-TRACE) MG/DL Urine Glucose (UA) NEG (NEG) MG/DL Urine Ketones 5 (NEG) MG/DL Urine Blood 3+ H (NEG) Urine Nitrite NEG (NEG) Ur Leukocyte Esterase NEG (NEG) Urine RBC 5-9 H (0) /HPF Urine WBC 1-4 (0-4) /HPF Ur Squamous Epith Cells TRACE /LPF Urine Bacteria NONE /LPF <Dani Araujo MD - Last Filed: 08/04/21 09:11> ECG Data Attestation: I personally reviewed and interpreted this ECG as follows: <MARKO Troncoso - Last Filed: 08/03/21 17:38> ECG interpretation date: 08/03/21 <MARKO Troncoso - Last Filed: 08/03/21 17:38> ECG interpretation time: 09:58 <MARKO Troncoso - Last Filed: 08/03/21 17:38> Prior ECG tracings: available for review <MARKO Troncoso - Last Filed: 08/03/21 17:38> Interpretation: Sinus tachycardia with occasional PVCs was the initial read, however, during my chart review the professor of fine art's updated the read to atrial flutter with a 2-1 block <MARKO Troncoso Last Filed: 08/03/21 17:38> Discharge Plan Discharge Clinical Impression: Tachycardia <MARKO Troncoso Last Filed: 08/03/21 17:38> Patient Disposition: Home, Self-Care <MARKO Troncoso Last Filed: 08/03/21 17:38> Instructions: Tachycardia (ED) <MARKO Troncoso Last Filed: 08/03/21 17:38> Prescriptions: No Action acetaminophen [Tylenol Extra Strength] 500 mg Tablet 1,000 mg PO BEDTIME 0RF acetaminophen 500 mg Tablet 500 mg PO DAILY 0RF levothyroxine 88 mcg Tablet 132 mcg PO KAPLAN@0600 0RF oxycodone 5 mg tablet 5 mg PO BEDTIME PRN (Reason: pain) 0RF levothyroxine 88 mcg tablet 88 mcg PO MOTUWETHFRSA@0600 0RF pravastatin 80 mg tablet 80 mg PO BEDTIME 0RF omeprazole 40 mg capsule,delayed release(DR/EC) 40 mg PO BID@0630,1630 0RF Eliquis 5 mg tablet 5 mg PO BID 0RF Hold Instructions: Resume on 03/05/21. torsemide 20 mg tablet 20 mg PO Q3D 0RF <MARKO Troncoso - Last Filed: 08/03/21 17:38> Referrals: Uday Sheehan MD [Primary Care Provider] - 2 days <MARKO Troncoso - Last Filed: 08/03/21 17:38> Interventions: ED Discharge Assessment Last Done: 08/03/21 15:22 <MARKO Troncoso Last Filed: 08/03/21 17:38> Discharge Date/Time: 08/03/21 15:39 <MARKO Troncoso Last Filed: 08/03/21 17:38> Print Language: Danish <MARKO Troncoso Last Filed: 08/03/21 17:38>
[2021-08-03 10:10] VITALS: BP 140/95; PULSE 121; RESP 18; TEMP 37.2; O2SAT 97; BMI 35.6
[2021-08-03 10:20] VITALS: PULSE 121; PULSE 122; O2SAT 98
[2021-08-03] MEDS: Acetaminophen 325 MG TABLET 650 MG PO (10:36)
[2021-08-03] MEDS: Metoprolol Tartrate 12.5 MG HALFTAB PO ×2 (10:36→12:09)
[2021-08-03] MEDS: 0.9 % Sodium Chloride 1,000 ML 999 ML IVCONT (10:36)
[2021-08-03 10:37] LABS: MANUAL DIFF FLAG NO
[2021-08-03 10:40] LABS: Basophils Percent Auto 0.7 % (0-2); Eosinophils Percent Auto 0.7 % (0-4); Hematocrit 43.4 % (42.0-52.0); Hemoglobin 14.2 g/dl (14.0-18.0); Imm Gran Abs Auto 0.01 X10*3/uL (0.00-0.03); Imm Gran Pct Auto 0.2 % (0.0-0.4); Lymphocytes Absolute Auto 1.1 X10*3/uL (1.2-4.9); Lymphocytes Percent Auto 19.9 % (20-40); Mean Corpuscular HGB Conc 32.7 g/dl (31.0-36.0); Mean Corpuscular Volume 88.8 fL (80.0-98.0); Mean Platelet Volume 10.4 fL (9.4-12.4); Monocytes Absolute Auto 0.7 X10*3/uL (0.1-1.2); Monocytes Percent Auto 12.7 % (2-11); Neutrophils Absolute Auto 3.8 x10*3/uL (2.0-8.3); Neutrophils Percent Auto 65.8 % (45-73); Platelet Count 141 X10*3/uL (160-400); Red Blood Count 4.89 X10*6/uL (4.60-5.80); Red Cell Distribution Width 14.1 % (11.0-16.0); White Blood Count 5.7 X10*3/uL (4.8-10.8)
[2021-08-03 10:47] LABS: INTERNATIONAL NORM RATIO 1.5 (0.9-1.1); Prothrombin Time 17.7 SEC (9.9-13.0)
[2021-08-03 10:50] LABS: Partial Thromboplastin Time 49.9 SEC (24.1-38.0)
[2021-08-03 10:55] LABS: Lactic Acid 1.3 mmol/L (0.5-2.0)
[2021-08-03 11:01] LABS: Alanine Aminotransferase 14 U/L (0-40); Albumin Level 4.1 g/dL (3.5-5.0); Alkaline Phosphatase 77 U/L (39-117); Anion Gap 17 (12-20); Aspartate Amino Transferase 20 U/L (5-37); Bilirubin Total 0.6 mg/dL (0.0-1.0); Blood Urea Nitrogen 21 mg/dL (9-16); Calcium 9.4 mg/dL (8.4-10.2); Carbon Dioxide 24 mmol/L (22-29); Chloride 105 mmol/L (96-108); Creatinine Clr Calc Pharmacy 44.9; Estimated Glomerular Filt Rate 38; Glucose Fasting 107 mg/dL (60-99); Potassium 3.9 mmol/L (3.3-5.1); Sodium 142 mmol/L (135-145); Total Protein 7.3 g/dL (6.5-8.0); Troponin-I High Sensitivity 36.2 ng/L (<3.5-35.0)
[2021-08-03 11:29] VITALS: BP 168/100; PULSE 121; RESP 12; O2SAT 96
[2021-08-03 12:10] VITALS: BP 177/109; PULSE 121; O2SAT 97
[2021-08-03 15:11] LABS: Appearance Urine CLEAR; Color Urine YELLOW; Glucose Urine UA NEG (NEG); Leukocyte Esterase Urine NEG (NEG); Nitrite Urine NEG (NEG); PH 6.5 (5.0-8.0); UACC Culture Trigger NO; Urine Blood 3+ (NEG); Urine Ketones 5 MG/DL (NEG); Urine Protein TRACE MG/DL (NEG-TRACE)
[2021-08-03 15:57] LABS: Squamous Epithelial Cell Urine TRACE /LPF
== END 2021-08-03 15:39 | disposition home or self-care (01) ==
PROVIDERS: Physician Assistant Medical; Emergency Provider Emergency Medicine; PCP Internal Medicine
DX: R00.0 Tachycardia, unspecified (principal); I49.9 Cardiac arrhythmia, unspecified; R00.2 Palpitations; R94.31 Abnormal electrocardiogram [ECG] [EKG]; I48.91 Unspecified atrial fibrillation; I10 Essential (primary) hypertension; Z79.01 Long term (current) use of anticoagulants; Z79.899 Other long term (current) drug therapy
CPT/HCPCS: 36415; 71046; 78580; 80053; 81001; 83605; 83735; 84484; 85025; 85610; 85730; 87040; 93005; 99285; A9540

== ENCOUNTER 2021-08-03 17:40 | Inpatient (IN) | payer MEDICARE, SELFPAY ==
[2021-08-03 17:56] VITALS: BP 158/83; PULSE 120; RESP 18; TEMP 36.7; O2SAT 98; BMI 35.6
[2021-08-03 18:26] LABS: MANUAL DIFF FLAG NO
--- NOTE | 2021-08-03 18:34 | ED_ITS ---
HPI - Arrhythmia/Palpitations General Chief Complaint: Chest Pain Stated Complaint: re-admit, misread ekg, dr hernandez chest pain Time Seen by Provider: 08/03/21 18:34 Source: patient Mode of arrival: ambulatory Limitations: no limitations History of Present Illness HPI narrative: Patient with history of paroxysmal AFib status post multiple cardioversion and 2 times cardiac ablation last one was in 09/27 since then p atient been in sinus rhythm. For last 4 days patient has been having paroxysmal tachycardia episode initial lasting only for few minutes gradually progressing and since today morning patient continued to be in AFib/tachycardia when he was seen in the ER here today was diagnosed with sinus tachycardia/insight and discharge patient home. Cardiology saw the cardiogram which showed 2: 1 atrial flutter with heart rate in 120s and the patient call back for further evaluation treatment patient is on Eliquis not on any calcium channel hallie or beta- hallie Related Data Home Medications Medication Instructions Recorded Confirmed levothyroxine 88 mcg tablet 88 mcg PO MOTUWETHFRSA@0600 11/12/20 08/03/21 apixaban 5 mg tablet (Eliquis) 5 mg PO BID 02/09/21 08/03/21 omeprazole 40 mg capsule,delayed 40 mg PO BID@0630,1630 02/09/21 08/03/21 release pravastatin 80 mg tablet 80 mg PO BEDTIME 02/09/21 08/03/21 torsemide 20 mg tablet 20 mg PO Q3D 02/09/21 08/03/21 acetaminophen 500 mg tablet 1,000 mg PO BEDTIME 02/22/21 08/03/21 (Tylenol Extra Strength) acetaminophen 500 mg tablet 500 mg PO DAILY 08/03/21 08/03/21 levothyroxine 88 mcg tablet 132 mcg PO KAPLAN@0600 08/03/21 08/03/21 oxycodone 5 mg tablet 5 mg PO BEDTIME PRN 08/03/21 08/03/21 Allergies Allergy/AdvReac Type Severity Reaction Status Date / Time ibuprofen [IBUPROFEN] Allergy Intermediate HIVES Verified 08/03/21 17:56 hydromorphone [From DILAUDID] AdvReac Intermediate ILEUS Verified 08/03/21 17:56 procaine [From Novocain] AdvReac Intermediate has no Verified 08/03/21 17:56 numbing effect-states monocain works narcotic pain meds AdvReac Intermediate does not Uncoded 08/03/21 17:56 relieve pain per patient Review of Systems Review of Systems: Yes all other systems are reviewed and are negative [facility] Past Medical History Medical History Atrial fibrillation BPH loc w urin obs/LUTS Chest pain COVID-19 vaccine series completed Elevated PSA Facet arthropathy, cervical GERD (gastroesophageal reflux disease) HTN (hypertension) Hyperlipidemia On anticoagulant therapy Renal stones Sleep apnea Symptomatic cholelithiasis Thyroid disease Surgical History H/O colonoscopy History of surgery History of total replacement of both hip joints Hx of arthroscopic knee surgery Hx of cataract extraction Hx of cystoscopy S/P laparoscopic cholecystectomy Social History Social History Household Members: Spouse Housing: House Are you a primary ambulatory care coordinator to a significant other at home: No Do you presently have visiting nurse or other home services: No Alcohol intake: never Patient Tobacco Use Status: Never used Tobacco Advance Directives: Yes Advance Directives Information Provided: No Advance Directives on File: No service: No Current occupational status: retired Physical Exam Vital Signs: Vital Signs: Last Vital Signs Temp 98.4 F 08/03/21 19:44 Pulse 131 H 08/03/21 20:31 Resp 16 08/03/21 20:31 BP 130/89 08/03/21 20:31 Pulse Ox 96 08/03/21 20:31 BMI result Body Mass Index 35.6 Appearance: Alert. Oriented X3. No acute distress. Eyes: No pallor or icterus ENT: Pharynx normal. Oral Mucosa moist Neck: Normal inspection. Neck supple. CVS: Irregularly regular heart rate, tachycardia Pulses normal. Respiratory: No respiratory distress. Equal air entry bilateral, no wheezing/rales/rhonchi Abdomen: Soft and nontender. Bowel sounds are present, no mass palpable, no CVA tenderness Skin: Skin warm and dry. Normal skin color. Normal skin turgor. Extremities: No lower extremity edema. No calf tenderness Neuro: Oriented X 3. No motor deficit. MDM - Arrhythmia/Palpitations MDM Narrative Medical decision making narrative: Patient with paroxysmal AFib on Cardizem drip will admit patient for heart rate control. Case discussed with Dr. Briones shipwright will decide about further course of treatment tomorrow Lab Data Attestation: I reviewed the patient's lab results. Result diagrams: 08/03/21 18:20 08/03/21 18:20 Labs: Lab Results 08/03/21 08/03/21 08/03/21 Range/Units 18:20 18:20 18:20 WBC 7.9 (4.8-10.8) X10*3/uL RBC 5.07 (4.60-5.80) X10*6/uL Hgb 14.7 (14.0-18.0) g/dl Hct 45.4 (42.0-52.0) % MCV 89.5 (80.0-98.0) fL MCH 29.0 (27.0-33.0) pg MCHC 32.4 (31.0-36.0) g/dl RDW 14.5 (11.0-16.0) % Plt Count 169 (160-400) X10*3/uL MPV 10.2 (9.4-12.4) fL Immature Gran % (Auto) 0.3 (0.0-0.4) % Neut % (Auto) 55.5 (45-73) % Lymph % (Auto) 31.3 (20-40) % [place] % (Auto) 11.4 H (2-11) % Eos % (Auto) 1.1 (0-4) % Baso % (Auto) 0.4 (0-2) % Lymph # (Auto) 2.5 (1.2-4.9) X10*3/uL [place] # (Auto) 0.9 (0.1-1.2) X10*3/uL Eos # (Auto) 0.1 (0.0-0.4) X10*3/uL Baso # (Auto) 0.0 (0.0-0.2) X10*3/uL Abs Immat Gran (auto) 0.02 (0.00-0.03) X10*3/uL Absolute Neuts (auto) 4.4 (2.0-8.3) x10*3/uL Absolute Nucleated RBC 0.000 (0.0-0.012) X10*3/uL Nucleated RBC % (auto) 0.0 (0.0-0.2) /100WBC Sodium 145 (135-145) mmol/L Potassium 3.5 (3.3-5.1) mmol/L Chloride 108 (96-108) mmol/L Carbon Dioxide 26 (22-29) mmol/L Anion Gap 15 (12-20) BUN 19 H (9-16) mg/dL Creatinine 1.68 H (0.5-1.4) mg/dL Estim Creat Clear Calc 45.9 Estimated GFR 39 Random Glucose 114 (60-115) mg/dL Calcium 9.2 (8.4-10.2) mg/dL Total Bilirubin 0.8 (0.0-1.0) mg/dL AST 21 (5-37) U/L ALT 16 (0-40) U/L Alkaline Phosphatase 76 (39-117) U/L Troponin I High Sens 59.3 H D (<3.5-35.0) ng/L Total Protein 7.3 (6.5-8.0) g/dL Albumin 4.1 (3.5-5.0) g/dL ECG Data Attestation: I personally reviewed and interpreted this ECG as follows: Interpretation: Atrial fibrillation with heart rate 138 beats per minute left axis deviation incomplete right bundle-branch block no acute STT wave changes no acute ischemia Critical Care Time Critical Care Time Critical Care Time: Yes Total Critical Care Time: 40 Attestation: I spent 40 minutes of critical care, with interventions, assessments, speaking to patient, consultants, Discharge Plan Discharge Clinical Impression: Atrial fibrillation with rapid ventricular response Chronic renal disease, stage 3, moderately decreased glomerular filtration rate (GFR) between 30-59 mL/min/1.73 square meter Qualifiers: Chronic kidney disease stage 3 subtype: stage 3a (GFR 45-59) Qualified Code(s): N18.31 - Chronic kidney disease, stage 3a Patient Disposition: Admitted As Inpatient
[2021-08-03 18:37] LABS: Basophils Percent Auto 0.4 % (0-2); Eosinophils Absolute Auto 0.1 X10*3/uL (0.0-0.4); Eosinophils Percent Auto 1.1 % (0-4); Hematocrit 45.4 % (42.0-52.0); Hemoglobin 14.7 g/dl (14.0-18.0); Imm Gran Abs Auto 0.02 X10*3/uL (0.00-0.03); Imm Gran Pct Auto 0.3 % (0.0-0.4); Lymphocytes Absolute Auto 2.5 X10*3/uL (1.2-4.9); Lymphocytes Percent Auto 31.3 % (20-40); Mean Corpuscular HGB Conc 32.4 g/dl (31.0-36.0); Mean Corpuscular Volume 89.5 fL (80.0-98.0); Mean Platelet Volume 10.2 fL (9.4-12.4); Monocytes Absolute Auto 0.9 X10*3/uL (0.1-1.2); Monocytes Percent Auto 11.4 % (2-11); Neutrophils Absolute Auto 4.4 x10*3/uL (2.0-8.3); Neutrophils Percent Auto 55.5 % (45-73); Platelet Count 169 X10*3/uL (160-400); Red Blood Count 5.07 X10*6/uL (4.60-5.80); Red Cell Distribution Width 14.5 % (11.0-16.0); White Blood Count 7.9 X10*3/uL (4.8-10.8)
[2021-08-03 18:44] LABS: Alanine Aminotransferase 16 U/L (0-40); Albumin Level 4.1 g/dL (3.5-5.0); Alkaline Phosphatase 76 U/L (39-117); Anion Gap 15 (12-20); Aspartate Amino Transferase 21 U/L (5-37); Bilirubin Total 0.8 mg/dL (0.0-1.0); Blood Urea Nitrogen 19 mg/dL (9-16); Calcium 9.2 mg/dL (8.4-10.2); Carbon Dioxide 26 mmol/L (22-29); Chloride 108 mmol/L (96-108); Creatinine Clr Calc Pharmacy 45.9; Estimated Glomerular Filt Rate 39; Glucose Random 114 mg/dL (60-115); Potassium 3.5 mmol/L (3.3-5.1); Sodium 145 mmol/L (135-145); Total Protein 7.3 g/dL (6.5-8.0)
[2021-08-03 18:48] LABS: Troponin-I High Sensitivity 59.3 ng/L (<3.5-35.0)
[2021-08-03 19:03] VITALS: BP 137/76; PULSE 160; RESP 16; TEMP 36.9; O2SAT 96
[2021-08-03] MEDS: dilTIAZem HCL 50 MG/10 ML VIAL 20 MG IVPUSH (19:07)
[2021-08-03 19:44] VITALS: BP 119/59; PULSE 88; RESP 12; TEMP 36.9; O2SAT 95
[2021-08-03] MEDS: dilTIAZem HCL 30 MG TABLET PO (19:46)
[2021-08-03] MEDS: Atorvastatin Calcium 80 MG TABLET PO (19:46)
[2021-08-03] MEDS: Apixaban 5 MG TABLET PO (19:46)
--- NOTE | 2021-08-03 20:11 | PHA.MEDREC ---
MED REC COMPLETE, NO ISSUES Pharmacy Consult ? Medication Reconciliation Pharmacy has completed the medication reconciliation.
[2021-08-03 20:31] VITALS: BP 130/89; PULSE 131; RESP 16; O2SAT 96
[2021-08-03] MEDS: dilTIAZem HCL 125 MG in 0.9 % Sodium Chloride 100 ML 10 MG IVCONT (20:34)
--- NOTE | 2021-08-03 22:00 | P.HPHOSP_ITS ---
History of Present Illness Date of Service: 08/03/21 Chief Complaint: palpitations 81-year-old male with past medical history of chronic AFib status post ablation x2 most recently in September, history of GERD, hypertension, hyperlipidemia, sleep apnea, hypothyroidism, among others who presents to the hospital with complaints of palpitations. Patient reports that he has been having CT palpitations since Monday, initially lasting few minutes and resolving spontaneously but today he had an appointment with his PCP which was routine, told him about the problem, had an EKG which showed AFib and patient was walked to the hospital. When he came into the hospital on the morning, his EKG was read as sinus tachycardia and he was sent home but then EKG was reread by a later team and patient was called back to the hospital due to him having AFib with RVR. Patient reports no dizziness, no chest pain but reports intermittent sharp pain in the midsternum mostly after he eats a meal, he is being seen by Gastroenterology next week for workup of possible GERD. he denies any orthopnea PND, Reports chronic lower extremity edema that has not worsened. He took his torsemide today which he takes every 3 days. pt has been in sinus rhythm since september last yr after the ablation and not on any BB On arrival to the ED patient hemodynamically stable with no significant abnormal vitals except for heart rate of 121 which was AFib with RVR labs were significant for troponin of 59.3 which decreased to 49.4, BNP in the 200s, Ekg showed afib with RVR , V/Q study done earlier in the day was negative, chest x-ray negative patient received p.o. AV hallie, as well as IV with no resolution of his RVR, patient placed on diltiazem drip and admitted for possible cardiobersion in am Review of Systems Verdana 4l Review of Systems: Yes all other systems are reviewed and Verdana 4d are negative [facility] Medical History Atrial fibrillation BPH loc w urin obs/LUTS Chest pain COVID-19 vaccine series completed Elevated PSA Facet arthropathy, cervical GERD (gastroesophageal reflux disease) HTN (hypertension) Hyperlipidemia On anticoagulant therapy Renal stones Sleep apnea Symptomatic cholelithiasis Thyroid disease Surgical History H/O colonoscopy History of surgery History of total replacement of both hip joints Hx of arthroscopic knee surgery Hx of cataract extraction Hx of cystoscopy S/P laparoscopic cholecystectomy Social History Household Members: Spouse Housing: House Are you a primary manager progressive care to a significant other at home: No Do you presently have visiting nurse or other home services: No Alcohol intake: never Patient Tobacco Use Status: Never used Tobacco Advance Directives: Yes Advance Directives Information Provided: No Advance Directives on File: No service: No Current occupational status: retired Meds Allergies Allergy/AdvReac Type Severity Reaction Status Date / Time ibuprofen Allergy Intermediate HIVES Verified 08/03/21 17:56 [IBUPROFEN] hydromorphone AdvReac Intermediate ILEUS Verified 08/03/21 17:56 [From DILAUDID] procaine [From AdvReac Intermediate has no Verified 08/03/21 17:56 Novocain] numbing effect-states monocain works narcotic pain AdvReac Intermediate does not Uncoded 08/03/21 17:56 meds relieve pain per patient Active Medications: Current Medications Diltiazem HCl 125 mg/ Sodium (Chloride) 125 mls @ 0 mls/hr IVCONT .Q0M AIDAN; Protocol Last Titration: 08/03/21 21:32 Dose: 15 mg/hr, 15 mls/hr Documented by: Home Medications Medication Instructions Recorded Confirmed Last Taken Type levothyroxine 88 88 mcg PO 11/12/20 08/03/21 08/03/21 History mcg tablet MOTUWETHFRSA@060 0 apixaban 5 mg 5 mg PO BID 02/09/21 08/03/21 08/03/21 History tablet (Eliquis) omeprazole 40 mg 40 mg PO 02/09/21 08/03/21 08/03/21 History capsule,delayed BID@0630,1630 release pravastatin 80 mg 80 mg PO BEDTIME 02/09/21 08/03/21 08/02/21 History tablet torsemide 20 mg 20 mg PO Q3D 02/09/21 08/03/21 08/02/21 History tablet acetaminophen 500 1,000 mg PO 02/22/21 08/03/21 Unknown History mg tablet BEDTIME (Tylenol Extra Strength) acetaminophen 500 500 mg PO DAILY 08/03/21 08/03/21 08/03/21 History mg tablet levothyroxine 88 132 mcg PO 08/03/21 08/03/21 08/01/21 History mcg tablet KAPLAN@0600 oxycodone 5 mg 5 mg PO BEDTIME 08/03/21 08/03/21 Unknown History tablet PRN Physical Exam Verdana 4l Vital Signs and Narrative: Verdana 4d Verdana 4d Vital Signs: Verdana 4d Verdana 4Bd Last Vital Signs Verdana 4d Color Technician New 4d Color Technician New 4d Temp 98.4 F 08/03/21 19:44 Color Technician New 4d Pulse 131 H 08/03/21 20:31 Color Technician New 4d Resp 16 08/03/21 20:31 BP 130/89 08/03/21 20:31 Pulse Ox 96 08/03/21 20:31 BMI result Body Mass Index 35.6 Const: General: cooperative and no acute distress Orientation/consciousness: patient oriented x3 Eyes: General: appearance normal, both eyes and all related structures Pupils: Equal, round and reactive pupils present Resp: Effort & Inspection: normal respiratory effort Auscultation: clear to auscultation bilaterally Cardio: Other: Tachycardic tachypnea GI: Palpation (GI): Soft to palpation Auscultation: normal bowel sounds Skin: General skin exam: no rashes or lesions noted Neuro: General: patient oriented x3 Cranial nerves: Yes Equal, round and reactive pupils present Cognition (Neuro): normal cognition Extrem: General: Yes normal to inspection and Yes no pedal edema Results Labs CBC and Chem 7: 08/03/21 18:20 08/03/21 18:20 Labs: Laboratory Results - last 24 hr 08/03/21 08/03/21 08/03/21 18:20 18:20 18:20 MCV 89.5 MCH 29.0 MCHC 32.4 RDW 14.5 Plt Count 169 MPV 10.2 Immature Gran % (Auto) 0.3 Neut % (Auto) 55.5 Lymph % (Auto) 31.3 [place] % (Auto) 11.4 H Eos % (Auto) 1.1 Baso % (Auto) 0.4 Lymph # (Auto) 2.5 [place] # (Auto) 0.9 Eos # (Auto) 0.1 Baso # (Auto) 0.0 Abs Immat Gran (auto) 0.02 Absolute Neuts (auto) 4.4 Absolute Nucleated RBC 0.000 Nucleated RBC % (auto) 0.0 Anion Gap 15 Estim Creat Clear Calc 45.9 Estimated GFR 39 Random Glucose 114 Calcium 9.2 Total Bilirubin 0.8 AST 21 ALT 16 Alkaline Phosphatase 76 Troponin I High Sens 59.3 H D Total Protein 7.3 Albumin 4.1 ECG Interpretation: AFib with RVR Assessment and Plan (1) Atrial fibrillation with rapid ventricular response: Status: Acute Plan This is an 81-year-old male with past medical history of AFib status post ablation, hypertension, CKD, who presents the hospital in AFib with RVR # AFib with RVR - troponin shows no delta, patient denies any chest pain - no evidence of heart failure - started on diltiazem drip - continue anticoagulation - will keep NPO - cardiology consult of possible cardioversion in a.m. # history of CHF - No evidence of exacerbation - no extremity edema, no orthopnea, no PND, no significant dyspnea - continue torsemide which he takes every 3 days # hypothyroidism - continue levothyroxine # GERD - Continue omeprazole DVT prophylaxis: [employer] Quality Stroke Does the patient have a stroke diagnosis?: No VTE Prior VTE?: No VTE Risk Level:: Medical - moderate - high VTE Device Contraindication: Treatment Not Indicated VTE Drug Contraindication: N/A - Med Ordered
[2021-08-03 23:12] LABS: B Type Natriuretic Peptide 234 pg/mL (<100)
[2021-08-03 23:41] LABS: Troponin-I High Sensitivity 49.4 ng/L (<3.5-35.0)
[2021-08-03 23:54] LABS: COVID-19 Test Negative (Negative); IDNOW Serial# 55D5AD1C
[2021-08-04] VITALS (16 sets, daily range): BP systolic 123–174; BP diastolic 59–88; PULSE 57–116; RESP 10–19; TEMP 36.3–37; O2SAT 94–99
--- NOTE | 2021-08-04 | ECG_ITS ---
Test Reason : afib Blood Pressure : / mmHG Vent. Rate : 106 BPM Atrial Rate : 000 BPM P-R Int : 000 ms QRS Dur : 088 ms QT Int : 326 ms P-R-T Axes : 000 -29 -70 degrees QTc Int : 433 ms Atrial fibrillation with rapid ventricular response with premature ventricular or aberrantly conducted complexes Minimal voltage criteria for LVH, may be normal variant ( R in aVL ) Inferior infarct , age undetermined Cannot rule out Anterior infarct , age undetermined Abnormal ECG When compared with ECG of 03-AUG-2021 09:58, Atrial fibrillation with rapid ventricular response has replaced Atrial flutter with 2 to 1 block Referred By: Dante Briones Electronically Signed By:DANTE BRIONES MD
--- NOTE | 2021-08-04 00:35 | PC.NURSE ---
Assumed care of pt from main ED. Pt ambulatory from stretcher to hospital bed. Dilt gtt infusing at 15, vitals as charted. Pt denies pain or distress, respirations even and non-labored, on room air. Using own CPAP. Provided urinal. Call light at hand, educated to call for assistance. Awaiting inpatient bed assignment
[2021-08-04] MEDS: Levothyroxine Sodium 88 MCG TABLET PO (06:25)
[2021-08-04] MEDS: Omeprazole 40 MG CAPSULE.DR PO ×2 (06:25→16:42)
[2021-08-04 07:13] LABS: MANUAL DIFF FLAG NO
[2021-08-04 07:18] LABS: Basophils Percent Auto 0.3 % (0-2); Eosinophils Absolute Auto 0.1 X10*3/uL (0.0-0.4); Eosinophils Percent Auto 1.8 % (0-4); Hematocrit 41.2 % (42.0-52.0); Hemoglobin 13.2 g/dl (14.0-18.0); Imm Gran Abs Auto 0.02 X10*3/uL (0.00-0.03); Imm Gran Pct Auto 0.3 % (0.0-0.4); Lymphocytes Absolute Auto 1.9 X10*3/uL (1.2-4.9); Lymphocytes Percent Auto 26.1 % (20-40); Mean Corpuscular Hemoglobin 28.8 pg (27.0-33.0); Mean Platelet Volume 10.6 fL (9.4-12.4); Monocytes Absolute Auto 1.2 X10*3/uL (0.1-1.2); Monocytes Percent Auto 16.7 % (2-11); Neutrophils Absolute Auto 3.9 x10*3/uL (2.0-8.3); Neutrophils Percent Auto 54.8 % (45-73); Platelet Count 138 X10*3/uL (160-400); Red Blood Count 4.58 X10*6/uL (4.60-5.80); Red Cell Distribution Width 14.6 % (11.0-16.0); White Blood Count 7.1 X10*3/uL (4.8-10.8)
[2021-08-04 07:31] LABS: Anion Gap 12 (12-20); Blood Urea Nitrogen 21 mg/dL (9-16); Calcium 8.9 mg/dL (8.4-10.2); Carbon Dioxide 27 mmol/L (22-29); Chloride 109 mmol/L (96-108); Creatinine Clr Calc Pharmacy 52.5; Estimated Glomerular Filt Rate 46; Glucose Random 110 mg/dL (60-115); Potassium 4.1 mmol/L (3.3-5.1); Sodium 144 mmol/L (135-145)
[2021-08-04 08:02] LABS: Thyroid Stimulating Hormone 1.22 uIU/mL (0.32-4.0)
[2021-08-04] MEDS: Apixaban 5 MG TABLET PO ×2 (08:33→20:34)
[2021-08-04] MEDS: 0.9 % Sodium Chloride Flush 3 ML SYRINGE IVFLUSH (08:34)
--- NOTE | 2021-08-04 08:46 | PC.NURSE ---
hospitalist at bedside, pt npo and aware, nad, afib on monitor, alert, skin wpd, c/o chronic aches and pains in hips and shoulders, nad,
--- NOTE | 2021-08-04 09:50 | P.CONCA_ITS ---
History of Present Illness History of Present Illness Date of Service: 08/04/21 Requesting physician: Fátima Cortez Consult reason: atrial fibrillation Chief complaint: Afib w RVR Narrative: I was consulted to see Ramon in cardiology consultation today because of recurrent atrial arrhythmias. Ramon came to the hospital because of recurrent onset of palpitation that started on Monday associated with palpitations and dizziness and fast heart rate and at that time notice that his blood pressure is elevated. The episode lasted for about 10 minutes. Following that he had another episode on Monday that lasted for about 4 minutes. Monday and Monday did well. In appointment yesterday with Dr. Sheehan and he has symptoms of pa lpitation at that time and when he had EKG that showed atrial flutter with 2 is to 1 conduction at heart rate of 120 beats per minute. He was then brought over to the emergency room for further management. However was inadvertently discharge because it was felt that his arrhythmias sinus tachycardia related to anxiety. However after I read the EKG was called back to the emergency room and was noted to be in persistent atrial flutter with 2 is to 1 conduction difficult control. Was started on Cardizem drip. This morning he remains in rapid atrial flutter / fibrillation despite on maximal dose of Cardizem. Remains symptomatic. He short of breath. His BNP slightly elevated. Creatinine is elevated but this appears to be more chronic. His past medical history is complicated regarding his atrial arrhythmias. He has had atrial arrhythmias for many years and had ablation [address] Nair at [facility] subsequently he had repeat ablation last September with Dr. Villalobos for recurrent atrial fibrillation. At that time he also on amiodarone. After few months amiodarone was stopped as he was maintaining rhythm. However reviewing over the last few years his repeated presentation as always been when he has been of amiodarone for few months. Last echocardiogram in August 2018 at showed significant left atrial enlargement. He has history of hypertension, sleep apnea, chronic kidney disease, diastolic heart failure but he does not recall ever being told that he had heart failure. However he takes torsemide every 3 days when he has leg edema. He has no history of prior myocardial infarction or coronary artery disease, in fact his cardiac catheterization 2010 at shown normal coronary arteries. He has no history of stroke or diabetes. in the last few months he is very limited in activity due to left hip pain which is significant. Review of Systems Verdana 4l Constitutional: Verdana 4d Constitutional: Verdana 4d Verdana 4d Reports fatigue, Reports snoring and Reports stops breathing during sleep Verdana 4l Eyes: Verdana 4d Verdana 4d Eyes: Verdana 4d Reports no additional eye complaints Verdana 4l ENT: Verdana 4d Reports system reviewed and no additional complaints, except as documented Verdana 4l Cardiovascular: Verdana 4d Cardiovascular: Verdana 4d Verdana 4d Reports chest pain at rest ( Reproducible in the), Reports lightheadedness, Reports Loss of Consciousness, Reports palpitations and Reports dyspnea Verdana 4l Respiratory: Verdana 4d Verdana 4d Respiratory: Verdana 4d Reports dyspnea and Reports snoring Verdana 4l Gastrointestinal: Verdana 4d Gastrointestinal: Verdana 4d Verdana 4d Reports heartburn Verdana 4l Genitourinary: Verdana 4d Verdana 4d Genitourinary: Verdana 4d Reports no additional male genitourinary complaints Verdana 4l Musculoskeletal: Verdana 4d Musculoskeletal: Verdana 4d Verdana 4d Reports no additional musculoskeletal complaints Verdana 4l Integumentary/Breasts: Verdana 4d Skin/Breast: Verdana 4d Verdana 4d Reports system reviewed and no additional complaints, except as docu Verdana 4l Neurologic: Verdana 4d Reports system reviewed and no additional complaints, except as documented Verdana 4l Psychiatric: Verdana 4d Verdana 4d Psychiatric: Verdana 4d Reports no additional psychiatric complaints Verdana 4l Endocrine: Verdana 4d Verdana 4d Endocrine: Verdana 4d Reports no additional endocrine complaints, Reports fatigue and Reports palpitations Verdana 4l Hematologic/Lymphatic: Verdana 4d Hematologic/Lymphatic: Verdana 4d Verdana 4d Reports no additional hematologic/lymphatic complaints Verdana 4l Allergic/Immunologic: Verdana 4d Allergic/Immunologic: Verdana 4d Verdana 4d Reports no additional allergic/immunologic complaints PMFSH Past Medical History Medical History Atrial fibrillation BPH loc w urin obs/LUTS Chest pain COVID-19 vaccine series completed Elevated PSA Facet arthropathy, cervical GERD (gastroesophageal reflux disease) HTN (hypertension) Hyperlipidemia On anticoagulant therapy Renal stones Sleep apnea Symptomatic cholelithiasis Thyroid disease Surgical History Surgical History H/O colonoscopy History of surgery History of total replacement of both hip joints Hx of arthroscopic knee surgery Hx of cataract extraction Hx of cystoscopy S/P laparoscopic cholecystectomy Social History Social History Household Members: Spouse Housing: House Are you a primary director of managed care to a significant other at home: No Do you presently have visiting nurse or other home services: No Alcohol intake: never Patient Tobacco Use Status: Never used Tobacco Advance Directives: Yes Advance Directives Information Provided: No Advance Directives on File: No service: No Current occupational status: retired Meds Allergies Allergy/AdvReac Type Severity Reaction Status Date / Time ibuprofen Allergy Intermediate HIVES Verified 08/03/21 17:56 [IBUPROFEN] hydromorphone AdvReac Intermediate ILEUS Verified 08/03/21 17:56 [From DILAUDID] procaine [From AdvReac Intermediate has no Verified 08/03/21 17:56 Novocain] numbing effect-states monocain works narcotic pain AdvReac Intermediate does not Uncoded 08/03/21 17:56 meds relieve pain per patient Active Medications: Current Medications Acetaminophen (Acetaminophen 325 Mg Tablet) 650 mg PO Q6H PRN PRN Reason: Pain, Mild (Pain Scale 1-3) Apixaban (Apixaban 5 Mg Tablet) 5 mg PO BID [facility] Last Admin: 08/04/21 08:33 Dose: 5 mg Documented by: Docusate Sodium (Docusate Sodium 100 Mg Capsule) 100 mg PO DAILY PRN PRN Reason: Constipation Diltiazem HCl 125 mg/ Sodium (Chloride) 125 mls @ 0 mls/hr IVCONT .Q0M [facility]; Protocol Last Titration: 08/04/21 06:07 Dose: Infused Documented by: Amiodarone HCl (Nexterone) 150 mg in 100 mls @ 600 mls/hr IV ONCE ONE Stop: 08/04/21 09:56 Amiodarone HCl 900 mg/ Sodium (Chloride) 518 mls @ 34.533 mls/hr IVCONT .Q15H1M [facility]; Protocol Levothyroxine Sodium (Levothyroxine Sodium 88 Mcg Tablet) 132 mcg PO KAPLAN@0600 S [facility] Levothyroxine Sodium (Levothyroxine Sodium 88 Mcg Tablet) 88 mcg PO MoTuWeThFrSa@0600 [facility] Last Admin: 08/04/21 06:25 Dose: 88 mcg Documented by: Omeprazole (Omeprazole 40 Mg Capsule.) 40 mg PO BID@0630,1630 [facility] Last Admin: 08/04/21 06:25 Dose: 40 mg Documented by: Ondansetron HCl (Ondansetron Hcl 4 Mg/2 Ml Vial) 4 mg IVPUSH Q8H PRN PRN Reason: Nausea and Vomiting Oxycodone HCl (Oxycodone Hcl Immed Release 5 Mg Tablet) 5 mg PO BEDTIME PRN PRN Reason: Pain, Severe (Pain Scale 7-10) Pravastatin Sodium (Pravastatin Sodium 80 Mg Tablet) 80 mg PO BEDTIME [facility] Sodium Chloride (0.9 % Sodium Chloride Flush 3 Ml Syringe) 3 ml IVFLUSH QSHIFT [facility] Last Admin: 08/04/21 08:34 Dose: 3 ml Documented by: Torsemide (Torsemide 20 Mg Tablet) 20 mg PO Q3D [facility]; Protocol Home Medications Medication Instructions Recorded Confirmed Last Taken Type levothyroxine 88 88 mcg PO 11/12/20 08/03/21 08/03/21 History mcg tablet MOTUWETHFRSA@060 0 apixaban 5 mg 5 mg PO BID 02/09/21 08/03/21 08/03/21 History tablet (Eliquis) omeprazole 40 mg 40 mg PO 02/09/21 08/03/21 08/03/21 History capsule,delayed BID@0630,1630 release pravastatin 80 mg 80 mg PO BEDTIME 02/09/21 08/03/21 08/02/21 History tablet torsemide 20 mg 20 mg PO Q3D 02/09/21 08/03/21 08/02/21 History tablet acetaminophen 500 1,000 mg PO 02/22/21 08/03/21 Unknown History mg tablet BEDTIME (Tylenol Extra Strength) acetaminophen 500 500 mg PO DAILY 08/03/21 08/03/21 08/03/21 History mg tablet levothyroxine 88 132 mcg PO 08/03/21 08/03/21 08/01/21 History mcg tablet KAPLAN@0600 oxycodone 5 mg 5 mg PO BEDTIME 08/03/21 08/03/21 Unknown History tablet PRN Physical Exam Verdana 4l Vital Signs: Verdana 4d Verdana 4d Vital Signs: Verdana 4d Verdana 4Bd Last Vital Signs Verdana 4d Camera Supervisor New 4d Camera Supervisor New 4d Temp 98.2 F 08/04/21 06:15 Camera Supervisor New 4d Pulse 103 H 08/04/21 06:15 Camera Supervisor New 4d Resp 16 08/04/21 06:15 BP 134/83 08/04/21 06:15 Pulse Ox 96 08/04/21 06:15 BMI result Body Mass Index 35.6 Const: General: cooperative, comfortable, no acute distress, alert, awake and anxious Nutritional Appearance: obese Orientation/consciousness: patient oriented x3 HENMT: Head: Yes normocephalic and Yes atraumatic Neck: Neck: Yes trachea midline, Yes supple and Yes no JVD Resp: Effort & Inspection: normal respiratory effort Auscultation: clear to auscultation bilaterally Cardio: Jugular venous distension: no JVD Rate: tachycardic Rhythm: abnormal rhythm irregularly irregular Heart sounds: S1 normal heart sound present, S2 normal heart sound present, no click, no gallops and no murmurs GI: Inspection: Yes obesity Auscultation: normal bowel sounds Skin: General skin exam: no rashes or lesions noted Neuro: General: patient oriented x3 and no focal motor deficits Extrem: General: Yes no clubbing, cyanosis or edema Psych: Appearance: grossly normal Affect: Anxious affect present Objective Labs and Meds Result diagrams: 08/04/21 06:54 08/04/21 06:54 Lab results: Laboratory Results - last 24 hr 08/03/21 08/03/21 08/03/21 18:20 18:20 18:20 WBC 7.9 RBC 5.07 Hgb 14.7 Hct 45.4 MCV 89.5 MCH 29.0 MCHC 32.4 RDW 14.5 Plt Count 169 MPV 10.2 Immature Gran % (Auto) 0.3 Neut % (Auto) 55.5 Lymph % (Auto) 31.3 [place] % (Auto) 11.4 H Eos % (Auto) 1.1 Baso % (Auto) 0.4 Lymph # (Auto) 2.5 [place] # (Auto) 0.9 Eos # (Auto) 0.1 Baso # (Auto) 0.0 Abs Immat Gran (auto) 0.02 Absolute Neuts (auto) 4.4 Absolute Nucleated RBC 0.000 Nucleated RBC % (auto) 0.0 Sodium 145 Potassium 3.5 Chloride 108 Carbon Dioxide 26 Anion Gap 15 BUN 19 H Creatinine 1.68 H Estim Creat Clear Calc 45.9 Estimated GFR 39 Random Glucose 114 Calcium 9.2 Total Bilirubin 0.8 AST 21 ALT 16 Alkaline Phosphatase 76 Troponin I High Sens 59.3 H D B-Natriuretic Peptide Total Protein 7.3 Albumin 4.1 TSH COVID-19 (DANNY) COVID-19 [place] 08/03/21 08/03/21 08/04/21 22:39 23:31 06:54 WBC 7.1 RBC 4.58 L Hgb 13.2 L Hct 41.2 L MCV 90.0 MCH 28.8 MCHC 32.0 RDW 14.6 Plt Count 138 L MPV 10.6 Immature Gran % (Auto) 0.3 Neut % (Auto) 54.8 Lymph % (Auto) 26.1 [place] % (Auto) 16.7 H Eos % (Auto) 1.8 Baso % (Auto) 0.3 Lymph # (Auto) 1.9 [place] # (Auto) 1.2 Eos # (Auto) 0.1 Baso # (Auto) 0.0 Abs Immat Gran (auto) 0.02 Absolute Neuts (auto) 3.9 Absolute Nucleated RBC 0.000 Nucleated RBC % (auto) 0.0 Sodium Potassium Chloride Carbon Dioxide Anion Gap BUN Creatinine Estim Creat Clear Calc Estimated GFR Random Glucose Calcium Total Bilirubin AST ALT Alkaline Phosphatase Troponin I High Sens 49.4 H B-Natriuretic Peptide 234 H Total Protein Albumin TSH COVID-19 (DANNY) Negative COVID-19 [place] Com See Note 08/04/21 08/04/21 06:54 06:54 WBC RBC Hgb Hct MCV MCH MCHC RDW Plt Count MPV Immature Gran % (Auto) Neut % (Auto) Lymph % (Auto) Brewster % (Auto) Eos % (Auto) Baso % (Auto) Lymph # (Auto) [place] # (Auto) Eos # (Auto) Baso # (Auto) Abs Immat Gran (auto) Absolute Neuts (auto) Absolute Nucleated RBC Nucleated RBC % (auto) Sodium 144 Potassium 4.1 Chloride 109 H Carbon Dioxide 27 Anion Gap 12 BUN 21 H Creatinine 1.47 H Estim Creat Clear Calc 52.5 Estimated GFR 46 Random Glucose 110 Calcium 8.9 Total Bilirubin AST ALT Alkaline Phosphatase Troponin I High Sens B-Natriuretic Peptide Total Protein Albumin TSH 1.22 COVID-19 (DANNY) COVID-19 Clin Com Assessment and Plan (1) Atrial fibrillation with rapid ventricular response: Status: Acute Recurrent and persistent highly symptomatic atrial fibrillation both due to fast heart rate as well as due to loss of AV synchrony. In the past he has tolerated recurrent atrial fibrillation poorly and has underwent multiple ablations. Reviewing his chart it appears that he has had best response and long-term suppression with amiodarone therapy and with the last ablation. Will start him on IV amiodarone drip and perform synchronized cardioversion. Given his significant left atrial enlargement I think he will require antiarrhythmic drug support in the long run. I am not sure if he requires repeat ablation at this point time. Will need to monitor him clinically. 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 For now will start on IV amiodarone drip with loading and drip and then eventually switch him to p.o. loading with amiodarone 400 mg b.i.d. and then 200 mg daily after 2 weeks of oral loading. We discussed about this management plan. Given his significant symptoms he is agreeable at this point time. I think this will also lead to improvement in his cardiac output and improvement in symptoms of shortness of breath and with probable normalization is BNP. Blood pressure is well optimized. He has been overall anticoagulated and says he has not stopped his Eliquis at all. He does not therefore require a STEWART at this point in time. We discussed the risks, benefits, alternatives 2nd opinion to synchronized cardioversion. He understands and agrees. (2) Heart failure: Status: Acute Prior history of heart failure, currently does not appear to be any significant heart failure. His BNP elevation is most likely due to recurrent atrial fibrillation and loss of AV synchrony. Would avoid any significant di uretics given his elevated creatinine. Will pursue rhythm control approach as above. Greater than 1 hour was spent in reviewing all is old records And coming up with management plan and discussing management shannon Procedures Date of Service Date of Service: 08/04/21
[2021-08-04] MEDS: Amiodarone/Dextrose 150 MG/100 ML PLAST..BAG 600 MG IV (10:18)
[2021-08-04] MEDS: dilTIAZem HCL 125 MG in 0.9 % Sodium Chloride 100 ML 10 MG IVCONT (10:19)
--- NOTE | 2021-08-04 10:21 | PC.NURSE ---
afib on monitor, nad, alert, amiodarone drip started and cardizem decreased to 10mg/h per dr delacruz
[2021-08-04] MEDS: Amiodarone HCL 900 MG in 0.9 % Sodium Chloride 500 ML 34.53 MG IVCONT (10:39)
--- NOTE | 2021-08-04 10:40 | P.PNIM_ITS ---
Subjective Subjective Date of Service: 08/04/21 Interval History: the patient was seen and evaluated this morning Laying in bed, feels a rattle and unwell Still Still in atrial fibrillation rhythm Denies any fever, chills or chest pain No reported other overnight events. Review of Systems No fever, chills but reports generalized weakness No chest pain, but reported feeling the palpitation No shortness of breath or coughing No abdominal pain, nausea or vomiting No urinary symptoms No any rash or wounds Physical Exam Verdana 4l Vital Signs: Verdana 4d Verdana 4d Vital Signs: Verdana 4d Verdana 4Bd Last Vital Signs Verdana 4d Turf Keeper New 4d Turf Keeper New 4d Temp 98.2 F 08/04/21 06:15 Turf Keeper New 4d Pulse 103 H 08/04/21 06:15 Turf Keeper New 4d Resp 16 08/04/21 06:15 BP 134/83 08/04/21 06:15 Pulse Ox 96 08/04/21 06:15 BMI result Body Mass Index 35.6 Const: Other: Constitutional : Alert, oriented, not in distress Neck : Normal inspection, Supple Cardiovascular : Irregularly irregular, S1 S2, no lower extremity edema Respiratory : Fair bilateral air entry, no crackles, wheezes or rhonchi Gastrointestinal: soft, lax, Normal bowel sounds, Non tender Skin : Warm, Dry Neurological : Alert & oriented x3, No focal deficit Objective Data Active Medications Acetaminophen (Acetaminophen 325 Mg Tablet) 650 mg PO Q6H PRN PRN Reason: Pain, Mild (Pain Scale 1-3) Apixaban (Apixaban 5 Mg Tablet) 5 mg PO BID [facility] Last Admin: 08/04/21 08:33 Dose: 5 mg Documented by: MIGUEL ANGEL Docusate Sodium (Docusate Sodium 100 Mg Capsule) 100 mg PO DAILY PRN PRN Reason: Constipation Diltiazem HCl 125 mg/ Sodium (Chloride) 125 mls @ 0 mls/hr IVCONT .Q0M [facility]; Protocol Last Admin: 08/04/21 10:19 Dose: 10 mg/hr, 10 mls/hr Documented by: MIGUEL ANGEL Amiodarone HCl 900 mg/ Sodium (Chloride) 518 mls @ 34.533 mls/hr IVCONT .Q15H1M [facility]; Protocol Last Admin: 08/04/21 10:39 Dose: 1 mg/min, 34.53 mls/hr Documented by: MIGUEL ANGEL Levothyroxine Sodium (Levothyroxine Sodium 88 Mcg Tablet) 132 mcg PO KAPLAN@0600 [facility] Levothyroxine Sodium (Levothyroxine Sodium 88 Mcg Tablet) 88 mcg PO MoTuWeThFrSa@0600 [facility] Last Admin: 08/04/21 06:25 Dose: 88 mcg Documented by: RUSTY Omeprazole (Omeprazole 40 Mg Capsule.Dr) 40 mg PO BID@0630,1630 [facility] Last Admin: 08/04/21 06:25 Dose: 40 mg Documented by: RUSTY Ondansetron HCl (Ondansetron Hcl 4 Mg/2 Ml Vial) 4 mg IVPUSH Q8H PRN PRN Reason: Nausea and Vomiting Oxycodone HCl (Oxycodone Hcl Immed Release 5 Mg Tablet) 5 mg PO BEDTIME PRN PRN Reason: Pain, Severe (Pain Scale 7-10) Pravastatin Sodium (Pravastatin Sodium 80 Mg Tablet) 80 mg PO BEDTIME [facility] Sodium Chloride (0.9 % Sodium Chloride Flush 3 Ml Syringe) 3 ml IVFLUSH QSHIFT [facility] Last Admin: 08/04/21 08:34 Dose: 3 ml Documented by: MIGUEL ANGEL Torsemide (Torsemide 20 Mg Tablet) 20 mg PO Q3D [facility]; Protocol Labs CBC & Chem 7: 08/04/21 06:54 08/04/21 06:54 Labs: Laboratory Results - last 24 hr 08/03/21 08/03/21 08/03/21 18:20 18:20 18:20 MCV 89.5 MCH 29.0 MCHC 32.4 RDW 14.5 Plt Count 169 MPV 10.2 Immature Gran % (Auto) 0.3 Neut % (Auto) 55.5 Lymph % (Auto) 31.3 [place] % (Auto) 11.4 H Eos % (Auto) 1.1 Baso % (Auto) 0.4 Lymph # (Auto) 2.5 [place] # (Auto) 0.9 Eos # (Auto) 0.1 Baso # (Auto) 0.0 Abs Immat Gran (auto) 0.02 Absolute Neuts (auto) 4.4 Absolute Nucleated RBC 0.000 Nucleated RBC % (auto) 0.0 Anion Gap 15 Estim Creat Clear Calc 45.9 Estimated GFR 39 Random Glucose 114 Calcium 9.2 Total Bilirubin 0.8 AST 21 ALT 16 Alkaline Phosphatase 76 Troponin I High Sens 59.3 H D B-Natriuretic Peptide Total Protein 7.3 Albumin 4.1 TSH COVID-19 (DANNY) COVID-19 Clin Com 08/03/21 08/03/21 08/04/21 22:39 23:31 06:54 MCV 90.0 MCH 28.8 MCHC 32.0 RDW 14.6 Plt Count 138 L MPV 10.6 Immature Gran % (Auto) 0.3 Neut % (Auto) 54.8 Lymph % (Auto) 26.1 [place] % (Auto) 16.7 H Eos % (Auto) 1.8 Baso % (Auto) 0.3 Lymph # (Auto) 1.9 [place] # (Auto) 1.2 Eos # (Auto) 0.1 Baso # (Auto) 0.0 Abs Immat Gran (auto) 0.02 Absolute Neuts (auto) 3.9 Absolute Nucleated RBC 0.000 Nucleated RBC % (auto) 0.0 Anion Gap Estim Creat Clear Calc Estimated GFR Random Glucose Calcium Total Bilirubin AST ALT Alkaline Phosphatase Troponin I High Sens 49.4 H B-Natriuretic Peptide 234 H Total Protein Albumin TSH COVID-19 (DANNY) Negative COVID-19 Clin Com See Note 08/04/21 08/04/21 06:54 06:54 MCV MCH MCHC RDW Plt Count MPV Immature Gran % (Auto) Neut % (Auto) Lymph % (Auto) [place] % (Auto) Eos % (Auto) Baso % (Auto) Lymph # (Auto) [place] # (Auto) Eos # (Auto) Baso # (Auto) Abs Immat Gran (auto) Absolute Neuts (auto) Absolute Nucleated RBC Nucleated RBC % (auto) Anion Gap 12 Estim Creat Clear Calc 52.5 Estimated GFR 46 Random Glucose 110 Calcium 8.9 Total Bilirubin AST ALT Alkaline Phosphatase Troponin I High Sens B-Natriuretic Peptide Total Protein Albumin TSH 1.22 COVID-19 (DANNY) COVID-19 Clin Com Assessment and Plan (1) Atrial fibrillation with rapid ventricular response: Status: Acute Plan This is an 81-year-old male with past medical history of AFib status post ablation, hypertension, CKD, who presents the hospital in AFib with RVR # AFib with RVR Rate controlled, rhythm still in AFib Continue diltiazem drip continue anticoagulation keep NPO To start amiodarone drip cardiology to do cardioversion noontime # history of CHF No evidence of exacerbation continue torsemide which he takes every 3 days # hypothyroidism continue levothyroxine # GERD Continue omeprazole DVT prophylaxis: Eliquis Quality Stroke Does the patient have a stroke diagnosis?: No VTE Prior VTE?: No VTE Risk Level:: Medical - moderate - high VTE Device Contraindication: Treatment Not Indicated VTE Drug Contraindication: N/A - Med Ordered
--- NOTE | 2021-08-04 10:49 | HO.ANESPROP2 ---
HPI - Anesthesia Eval Consult details Narrative: 81 yo male patient for cardioversion [facility] Active Problems Active Problems: All Active Problems (Updated 08/04/21 @ 00:00 by Sravan Batista) Atrial fibrillation with rapid ventricular response (Acute) Chronic renal disease, stage 3, moderately decreased glomerular filtration rate (GFR) between 30-59 mL/min/1.73 square meter (Acute) HTN (hypertension) (Acute) Heart failure (Acute) Murmur, heart (Acute) Sleep apnea (Acute). On CPAP Atrial fibrillation (Acute) Renal stones (Acute) Elevated PSA (Acute) BPH loc w urin obs/LUTS (Acute) Hypothyroidism Increased BMI Arthritis LE edema Past Medical History Medical History Atrial fibrillation BPH loc w urin obs/LUTS Chest pain COVID-19 vaccine series completed Elevated PSA Facet arthropathy, cervical GERD (gastroesophageal reflux disease) HTN (hypertension) Hyperlipidemia On anticoagulant therapy Renal stones Sleep apnea Symptomatic cholelithiasis Thyroid disease Family History Family history of problems with anesthesia: No Surgical History Surgical History H/O colonoscopy History of surgery History of total replacement of both hip joints Hx of arthroscopic knee surgery Hx of cataract extraction Hx of cystoscopy S/P laparoscopic cholecystectomy History of Problems with Anesthesia: No Social History Social History Household Members: Spouse Housing: House Are you a primary career development manager to a significant other at home: No Do you presently have visiting nurse or other home services: No Alcohol intake: never Patient Tobacco Use Status: Never used Tobacco Use of substances other than those prescribed or required for medical reasons: No Are you DNR?: No Advance Directives: Yes Advance Directives Information Provided: No Advance Directives on File: No Advance Directives Date on File: 08/04/21 service: No Current occupational status: retired Meds Allergies Allergy/AdvReac Type Severity Reaction Status Date / Time ibuprofen [IBUPROFEN] Allergy Intermediate HIVES Verified 08/03/21 17:56 hydromorphone [From DILAUDID] AdvReac Intermediate ILEUS Verified 08/03/21 17:56 procaine [From Novocain] AdvReac Intermediate has no Verified 08/03/21 17:56 numbing effect-states monocain works narcotic pain meds AdvReac Intermediate does not Uncoded 08/03/21 17:56 relieve pain per patient Active Medications: Current Medications Acetaminophen (Acetaminophen 325 Mg Tablet) 650 mg PO Q6H PRN PRN Reason: Pain, Mild (Pain Scale 1-3) Apixaban (Apixaban 5 Mg Tablet) 5 mg PO BID [facility] Last Admin: 08/04/21 08:33 Dose: 5 mg Documented by: Docusate Sodium (Docusate Sodium 100 Mg Capsule) 100 mg PO DAILY PRN PRN Reason: Constipation Diltiazem HCl 125 mg/ Sodium (Chloride) 125 mls @ 0 mls/hr IVCONT .Q0M [facility]; Protocol Last Admin: 08/04/21 10:19 Dose: 10 mg/hr, 10 mls/hr Documented by: Amiodarone HCl 900 mg/ Sodium (Chloride) 518 mls @ 34.533 mls/hr IVCONT .Q15H1M [facility]; Protocol Last Admin: 08/04/21 10:39 Dose: 1 mg/min, 34.53 mls/hr Documented by: Levothyroxine Sodium (Levothyroxine Sodium 88 Mcg Tablet) 132 mcg PO KAPLAN@0600 [facility] Levothyroxine Sodium (Levothyroxine Sodium 88 Mcg Tablet) 88 mcg PO MoTuWeThFrSa@0600 [facility] Last Admin: 08/04/21 06:25 Dose: 88 mcg Documented by: Omeprazole (Omeprazole 40 Mg Capsule.) 40 mg PO BID@0630,1630 [facility] Last Admin: 08/04/21 06:25 Dose: 40 mg Documented by: Ondansetron HCl (Ondansetron Hcl 4 Mg/2 Ml Vial) 4 mg IVPUSH Q8H PRN PRN Reason: Nausea and Vomiting Oxycodone HCl (Oxycodone Hcl Immed Release 5 Mg Tablet) 5 mg PO BEDTIME PRN PRN Reason: Pain, Severe (Pain Scale 7-10) Pravastatin Sodium (Pravastatin Sodium 80 Mg Tablet) 80 mg PO BEDTIME [facility] Sodium Chloride (0.9 % Sodium Chloride Flush 3 Ml Syringe) 3 ml IVFLUSH QSHIFT [facility] Last Admin: 08/04/21 08:34 Dose: 3 ml Documented by: Torsemide (Torsemide 20 Mg Tablet) 20 mg PO Q3D [facility]; Protocol Home Medications Medication Instructions Recorded Confirmed Last Taken Type levothyroxine 88 mcg tablet 88 mcg PO MOTUWETHFRSA@0600 11/12/20 08/03/21 08/03/21 History apixaban 5 mg tablet (Eliquis) 5 mg PO BID 02/09/21 08/03/21 08/03/21 History omeprazole 40 mg capsule,delayed 40 mg PO BID@0630,1630 02/09/21 08/03/21 08/03/21 History release pravastatin 80 mg tablet 80 mg PO BEDTIME 02/09/21 08/03/21 08/02/21 History torsemide 20 mg tablet 20 mg PO Q3D 02/09/21 08/03/21 08/02/21 History acetaminophen 500 mg tablet 1,000 mg PO BEDTIME 02/22/21 08/03/21 Unknown History (Tylenol Extra Strength) acetaminophen 500 mg tablet 500 mg PO DAILY 08/03/21 08/03/21 08/03/21 History levothyroxine 88 mcg tablet 132 mcg PO KAPLAN@0600 08/03/21 08/03/21 08/01/21 History oxycodone 5 mg tablet 5 mg PO BEDTIME PRN 08/03/21 08/03/21 Unknown History Exam Exam Date and Time: August 04, 2021 1049 Height,Weight and Vital Signs: Height 6 ft Weight 119.295 kg Last Vital Signs Temp 98.2 F 08/04/21 06:15 Pulse 100 08/04/21 10:40 Resp 19 08/04/21 10:40 BP 123/73 08/04/21 10:40 Pulse Ox 97 08/04/21 10:40 Vital Signs Temp Pulse Resp BP Pulse Ox 08/04/21 11:03 97.9 F 116 H 18 124/76 95 08/04/21 10:40 100 19 123/73 97 08/04/21 06:15 98.2 F 103 H 16 134/83 96 08/04/21 00:32 108 H 10 L 142/88 H 94 08/03/21 20:31 131 H 16 130/89 96 08/03/21 19:44 98.4 F 88 12 119/59 L 95 08/03/21 19:03 98.5 F 160 H 16 137/76 96 08/03/21 17:56 98.1 F 120 H 18 158/83 H 98 Pertinent Lab Results Pertinent Lab Results: Laboratory Tests 08/03/21 08/03/21 08/03/21 18:20 18:20 18:20 WBC 7.9 RBC 5.07 Hgb 14.7 Hct 45.4 MCV 89.5 MCH 29.0 MCHC 32.4 RDW 14.5 Plt Count 169 MPV 10.2 Immature Gran % (Auto) 0.3 Neut % (Auto) 55.5 Lymph % (Auto) 31.3 [place] % (Auto) 11.4 H Eos % (Auto) 1.1 Baso % (Auto) 0.4 Lymph # (Auto) 2.5 [place] # (Auto) 0.9 Eos # (Auto) 0.1 Baso # (Auto) 0.0 Abs Immat Gran (auto) 0.02 Absolute Neuts (auto) 4.4 Absolute Nucleated RBC 0.000 Nucleated RBC % (auto) 0.0 Sodium 145 Potassium 3.5 Chloride 108 Carbon Dioxide 26 Anion Gap 15 BUN 19 H Creatinine 1.68 H Estim Creat Clear Calc 45.9 Estimated GFR 39 Random Glucose 114 Calcium 9.2 Total Bilirubin 0.8 AST 21 ALT 16 Alkaline Phosphatase 76 Troponin I High Sens 59.3 H D B-Natriuretic Peptide Total Protein 7.3 Albumin 4.1 TSH COVID-19 ([facility]ANNY) COVID-19 Clin Com 08/03/21 08/03/21 08/04/21 22:39 23:31 06:54 WBC 7.1 RBC 4.58 L Hgb 13.2 L Hct 41.2 L MCV 90.0 MCH 28.8 MCHC 32.0 RDW 14.6 Plt Count 138 L MPV 10.6 Immature Gran % (Auto) 0.3 Neut % (Auto) 54.8 Lymph % (Auto) 26.1 [place] % (Auto) 16.7 H Eos % (Auto) 1.8 Baso % (Auto) 0.3 Lymph # (Auto) 1.9 [place] # (Auto) 1.2 Eos # (Auto) 0.1 Baso # (Auto) 0.0 Abs Immat Gran (auto) 0.02 Absolute Neuts (auto) 3.9 Absolute Nucleated RBC 0.000 Nucleated RBC % (auto) 0.0 Sodium Potassium Chloride Carbon Dioxide Anion Gap BUN Creatinine Estim Creat Clear Calc Estimated GFR Random Glucose Calcium Total Bilirubin AST ALT Alkaline Phosphatase Troponin I High Sens 49.4 H B-Natriuretic Peptide 234 H Total Protein Albumin TSH COVID-19 (DANNY) Negative COVID-19 Clin Com See Note 08/04/21 08/04/21 06:54 06:54 WBC RBC Hgb Hct MCV MCH MCHC RDW Plt Count MPV Immature Gran % (Auto) Neut % (Auto) Lymph % (Auto) [place] % (Auto) Eos % (Auto) Baso % (Auto) Lymph # (Auto) [place] # (Auto) Eos # (Auto) Baso # (Auto) Abs Immat Gran (auto) Absolute Neuts (auto) Absolute Nucleated RBC Nucleated RBC % (auto) Sodium 144 Potassium 4.1 Chloride 109 H Carbon Dioxide 27 Anion Gap 12 BUN 21 H Creatinine 1.47 H Estim Creat Clear Calc 52.5 Estimated GFR 46 Random Glucose 110 Calcium 8.9 Total Bilirubin AST ALT Alkaline Phosphatase Troponin I High Sens B-Natriuretic Peptide Total Protein Albumin TSH 1.22 COVID-19 ([facility]NY) COVID-19 Clin Com Airway Mallampati Class: III TM Dist: >3cm Neck ROM: Limited Loose/Missing/Broken Teeth: Yes (Missing back teeth. Broken top right front) Heart: Irregularly irregular Lungs: CTAB Assessment and Plan Assessment Anesthesia Assessment: Anesthesia Plan Discussed and Chart Reviewed Final Anesthetic Review Family History of Problems with Anesthesia: No History of Problems with Anesthesia: No NPO: Yes ASA Class: III Final Preanesthetic Review: No Changes in Pt Med Stat, Meds/Allgs Chart Reviewed, Consent Obtained/Reviewed and Anes Risks/Benef Reviewed Patient Risk: Intermediate Procedure Risk: Intermediate Assessment/Block/Sedation in SS: Assess/Block/Sedation-SS Anesthetic Plan Anesthetic Plan: GA Disposition: Standard PACU
[2021-08-04] MEDS: Lactated Ringers 1,000 ML 50 ML IVCONT (11:47)
--- NOTE | 2021-08-04 12:09 | HO.CARDIVERS ---
Cardioversion Procedure Note Cardioversion Date of Procedure: 08/04/2021 Ordering Provider: Myself Performing Provider: Myself Indication for Procedure: Persistent symptomatic atrial fibrillation flutter Pre-Op Diagnosis: Same Post-Op Diagnosis: Sinus bradycardia Performed with Transesophageal Echo: No History: See my consult note Consent: Verbal and Written consent was obtained from the patient before starting and receiving amiodarone dose as well as confirming oral anticoagulation use The patient was made aware of the risk of synchronized cardioversion including benefits and alternatives. He agreed to the procedure Procedure: After consent obtained, cardioversion pads were attached in AP configuration and the patient was sedated by the anesthesia team. Once adequate sedation achieved, patient was delivered 200 joules of biphasic synchronized energy in anteroposterior configuration. Patient converted successfully to sinus bradycardia Complications: Brief apneic episode postprocedure which was corrected quickly by anesthesia team Impression: Successful conversion to sinus rhythm Recommendations: 1. Continue Eliquis 2. Twelve lead EKG 3. Continue IV amiodarone till evening and then switch to p.o. 400 mg b.i.d. for 2 weeks followed by 200 mg daily 4. EKG in the a.m. and if stable can be discharged tomorrow a.m.. Will follow with you
--- NOTE | 2021-08-04 12:10 | ECG_ITS ---
Test Reason : s/p cardioversion Blood Pressure : / mmHG Vent. Rate : 058 BPM Atrial Rate : 058 BPM P-R Int : 156 ms QRS Dur : 088 ms QT Int : 434 ms P-R-T Axes : 019 -31 267 degrees QTc Int : 426 ms Sinus bradycardia Left axis deviation Minimal voltage criteria for LVH, may be normal variant ( R in aVL ) Inferior infarct (cited on or before 04-AUG-2021) Anteroseptal infarct (cited on or before 04-AUG-2021) Abnormal ECG When compared with ECG of 04-AUG-2021 09:47, Sinus rhythm has replaced Atrial fibrillation Vent. rate has decreased BY 48 BPM Questionable change in initial forces of Anteroseptal leads Referred By: Dante Briones Electronically Signed By:DANTE BRIONES MD
--- NOTE | 2021-08-04 14:16 | MHC.CM.PN ---
Met with patient in regards to discharge planning. Patient lives with his , occasionally uses a cane for mobility and had no services prior to coming to the hospital. PCP verified. Patient received 3 Pfizer vaccines. Patient has a HCP at home and will attempt to obtain a copy. IMM explained and signed. Patient's will transport patient home when medically stable. Continue to monitor for d/c needs.
[2021-08-04] MEDS: Pravastatin Sodium 80 MG TABLET PO (20:33)
[2021-08-05 01:41] VITALS: BP 160/78; PULSE 66; RESP 16; TEMP 36.9; O2SAT 97
[2021-08-05 05:40] LABS: Anion Gap 11 (12-20); Blood Urea Nitrogen 21 mg/dL (9-16); Calcium 8.8 mg/dL (8.4-10.2); Carbon Dioxide 27 mmol/L (22-29); Chloride 107 mmol/L (96-108); Creatinine Clr Calc Pharmacy 48.5; Estimated Glomerular Filt Rate 42; Glucose Random 106 mg/dL (60-115); Potassium 3.8 mmol/L (3.3-5.1); Sodium 141 mmol/L (135-145)
[2021-08-05 06:04] VITALS: BP 164/65; PULSE 57; RESP 17; O2SAT 95
--- NOTE | 2021-08-05 06:53 | HO.POSTANES ---
Post Anesthesia Evaluation Post Anesthesia Evaluation Vital Signs: Vital Signs Temp Pulse Resp BP Pulse Ox 08/05/21 06:04 57 17 164/65 H 95 08/05/21 01:41 98.4 F 66 16 160/78 H 97 08/04/21 22:00 97.8 F 67 16 166/64 H 99 08/04/21 21:00 97.4 F 64 16 174/67 H 96 08/04/21 20:00 98.6 F 62 16 174/69 H 96 Anesthesia: General Mental Status: Awake Pain Control: Satisfactory Nausea/Vomiting: None Hydration: Adequate Anesthesia-Related Issues: No Anes. Related Issues
[2021-08-05 07:59] VITALS: BP 179/70; PULSE 62; RESP 11; TEMP 36.7; O2SAT 96
[2021-08-05] MEDS: Omeprazole 40 MG CAPSULE.DR PO (08:12)
[2021-08-05] MEDS: Levothyroxine Sodium 88 MCG TABLET 132 MCG PO (08:12)
[2021-08-05] MEDS: Apixaban 5 MG TABLET PO (08:12)
[2021-08-05] MEDS: 0.9 % Sodium Chloride Flush 3 ML SYRINGE IVFLUSH (08:14)
[2021-08-05] MEDS: Amiodarone HCL 200 MG TABLET 400 MG PO (08:55)
[2021-08-05] MEDS: Acetaminophen 325 MG TABLET 650 MG PO (08:55)
[2021-08-05 09:14] VITALS: BP 170/75; PULSE 62; RESP 10; O2SAT 96
--- NOTE | 2021-08-05 09:38 | P.PNCA_ITS ---
Subjective Subjective Date of Service: 08/05/21 Principal diagnosis: AF Interval history: Patient maintain sinus rhythm after cardioversion today. No neurologic sym ptoms. Feeling a lot better. Blood pressure is optimized. Maximilian was just stopped this morning, IV infusion. His oral anticoagulation. Review of Systems Review of Systems Yes all other systems are reviewed and are negative Physical Exam Vital Signs: Last Vital Signs Temp 98.1 F 08/05/21 07:59 Pulse 62 08/05/21 09:14 Resp 10 L 08/05/21 09:14 BP 170/75 H 08/05/21 09:14 Pulse Ox 96 08/05/21 09:14 BMI result Verdana 4 Body Mass Index Verdana 4 35.6 Verdana 4 Verdana 4 Const General: cooperative, comfortable, alert, awake and anxious Nutritional Appearance: obese Orientation/consciousness: patient oriented x3 Neck Neck: Yes trachea midline, Yes supple and Yes no JVD Resp Effort & Inspection: normal respiratory effort Auscultation: clear to auscultation bilaterally Cardio Jugular venous distension: no JVD Palpation: normal PMI Rate: regular rate Rhythm: regular rhythm Heart sounds: S1 normal heart sound present, S2 normal heart sound present, no click, no gallops and no murmurs GI Inspection: Yes obesity Auscultation: normal bowel sounds Neuro General: patient oriented x3 and no focal motor deficits Extrem General: Yes no clubbing, cyanosis or edema Objective Labs and Meds Result diagrams: 08/04/21 06:54 08/05/21 04:15 Lab results: Laboratory Results - last 24 hr 08/05/21 04:15 Sodium 141 Potassium 3.8 Chloride 107 Carbon Dioxide 27 Anion Gap 11 L BUN 21 H Creatinine 1.59 H Estim Creat Clear Calc 48.5 Estimated GFR 42 Random Glucose 106 Calcium 8.8 Progress Note: A&P Assessment and plan (1) Atrial fibrillation: Status: Acute Assessment and Plan: Highly symptomatic atrial fibrillation this gentleman with significant left atrial enlargement. Has been difficult control in the past. Has responded to amiodarone in the past very well. Will load with amiodarone 400 mg b.i.d. for 2 weeks followed by 200 mg daily. Continue full oral anticoagulation Eliquis. Less likely now that he is in sinus rhythm that he would have issues with congestive heart failure. Follow-up BMP as outpatient through PCP's office. 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 Better blood pressure control is necessary. Advised to monitor blood pressure at home and maintain a log. Low-salt diet was discussed. Stress mitigation strategies to be pursued. EKG today. If this is reasonably within okay limits can be discharged home today. Thank you for allowing us to partake in his care Fall Risk Details Current Medications: Current Medications Acetaminophen (Acetaminophen 325 Mg Tablet) 650 mg PO Q6H PRN PRN Reason: Pain, Mild (Pain Scale 1-3) Last Admin: 08/05/21 08:55 Dose: 650 mg Documented by: Amiodarone HCl (Amiodarone Hcl 200 Mg Tablet) 400 mg PO BID [facility] Last Admin: 08/05/21 08:55 Dose: 400 mg Documented by: Apixaban (Apixaban 5 Mg Tablet) 5 mg PO BID [facility] Last Admin: 08/05/21 08:12 Dose: 5 mg Documented by: Docusate Sodium (Docusate Sodium 100 Mg Capsule) 100 mg PO DAILY PRN PRN Reason: Constipation Levothyroxine Sodium (Levothyroxine Sodium 88 Mcg Tablet) 132 mcg PO KAPLAN@0600 [facility] Last Admin: 08/05/21 08:12 Dose: 132 mcg Documented by: Levothyroxine Sodium (Levothyroxine Sodium 88 Mcg Tablet) 88 mcg PO MoTuWeThFrSa@0600 [facility] Last Admin: 08/05/21 08:24 Dose: Not Given Documented by: Omeprazole (Omeprazole 40 Mg Capsule.) 40 mg PO BID@0630,1630 [facility] Last Admin: 08/05/21 08:12 Dose: 40 mg Documented by: Ondansetron HCl (Ondansetron Hcl 4 Mg/2 Ml Vial) 4 mg IVPUSH Q8H PRN PRN Reason: Nausea and Vomiting Ondansetron HCl (Ondansetron Hcl 4 Mg/2 Ml Vial) 4 mg IVPUSH ONCE PRN PRN Reason: Nausea and Vomiting Oxycodone HCl (Oxycodone Hcl Immed Release 5 Mg Tablet) 5 mg PO BEDTIME PRN PRN Reason: Pain, Severe (Pain Scale 7-10) Pravastatin Sodium (Pravastatin Sodium 80 Mg Tablet) 80 mg PO BEDTIME [facility] Last Admin: 08/04/21 20:33 Dose: 80 mg Documented by: Sodium Chloride (0.9 % Sodium Chloride Flush 3 Ml Syringe) 3 ml IVFLUSH QSHIFT [facility] Last Admin: 08/05/21 08:14 Dose: 3 ml Documented by: Torsemide (Torsemide 20 Mg Tablet) 20 mg PO Q3D [facility]; Protocol Time Spent With Patient Time: Total time spent is greater than 50% in coordination of care (as documented) at patient's floor/unit and/or counseling patient: Time with patient: 15 - 24 minutes Progress Note: Quality Stroke Does the patient have a stroke diagnosis?: No Procedures Date of Service Date of Service: 08/05/21
[2021-08-05 11:13] VITALS: BP 162/74; PULSE 60; RESP 10; O2SAT 95
--- NOTE | 2021-08-05 11:24 | P.DS_ITS ---
DS: Providers Provider Date of Service: 08/05/21 Date of admission: 08/03/21 21:56 Primary care physician: Uday Sheehan MD Consults: 08/03/21 21:55 Consult to Cardiology Routine Consulting Provider: Dante Briones Reason for consultation: A fib w rvr Has provider been notified: Yes DS: Diagnosis Discharge Diagnosis (1) Atrial fibrillation with rapid ventricular response: Status: Acute DS: Summary Hospital Course Hospital Course: Admission note HPI ?81-year-old male with past medical history of chronic AFib status post ablation x2 most recently in September, history of GERD, hypertension, hyperlipidemia, sleep apnea, hypothyroidism, among others who presents to the hospital with complaints of palpitations.? Patient reports that he has been having CT palpitations since Monday, initially lasting few minutes and resolving spontaneously but today he had an appointment with his PCP which was routine, told him about the problem, had an EKG which showed AFib and patient was walked to the hospital.? When he came into the hospital on the morning, his EKG was read as sinus tachycardia and he was sent home but then EKG was reread by a later team and patient was called back to the hospital due to him having AFib with RVR.? Patient reports no dizziness, no chest pain? but reports intermittent sharp pain in the midsternum mostly after he eats a meal, he is being seen by Gastroenterology next week for workup of possible GERD. ? he denies any orthopnea PND, ? Reports chronic lower extremity edema that has not worsened.? He took his torsemide today which he takes every 3 days. pt has been in sinus rhythm since september last yr after the ablation and not on any BB On arrival to the ED patient hemodynamically stable with no significant abnormal vitals except for heart rate of? 121 which was AFib with RVR ?labs were significant for troponin of 59.3 which decreased to 49.4, BNP in the 200s, Ekg showed afib with RVR ,? V/Q study done earlier in the day was negative, chest x-ray negative ? patient received p.o. AV hallie, as well as IV with no resolution of his RVR, patient placed on diltiazem drip and admitted for possible cardiobersion in am Hospital course Patient was admitted to the hospital for treatment of atrial fibrillation with RVR. Started on Cardizem drip with fair response as heart rate improved but the patient continue to be on atrial fibrillation with symptoms of weakness and palpitation. Evaluated by Cardiology team will decided to cardioversion which was done with good response as he converted back to sinus rhythm. Started on amiodarone drip overnight. He maintained a sinus rhythm. Plan to discharge home on amiodarone 400 mg b.i.d. for 2 weeks then to continue with 200 mg daily. to follow up with Cardiology as outpatient. Time Spent with Patient Time attestation: Total time spent providing and/or coordinating discharge services: Discharge coordination time: Greater than 30 minutes Quality: Stroke Does the patient have a stroke diagnosis?: No Physical Exam Verdana 4l Vital Signs: Verdana 4d Verdana 4d Vital Signs: Verdana 4d Verdana 4Bd Last Vital Signs Verdana 4d Craps Manager New 4d Craps Manager New 4d Temp 98.1 F 08/05/21 07:59 Craps Manager New 4d Pulse 60 08/05/21 11:13 Craps Manager New 4d Resp 10 L 08/05/21 11:13 BP 162/74 H 08/05/21 11:13 Pulse Ox 95 08/05/21 11:13 BMI result Body Mass Index 35.6 Const: Other: Constitutional : Alert, oriented, not in distress Neck : Normal inspection, Supple Cardiovascular : Regular rhythm, S1 S2, no lower extremity edema Respiratory : Fair bilateral air entry, no crackles, wheezes or rhonchi Gastrointestinal: soft, lax, Normal bowel sounds, Non tender Skin : Warm, Dry Neurological : Alert & oriented x3, No focal deficit the DS: Data Data Completed and Pending Labs on day of discharge: Laboratory Results - last 24 hr 08/05/21 04:15 Sodium 141 Potassium 3.8 Chloride 107 Carbon Dioxide 27 Anion Gap 11 L BUN 21 H Creatinine 1.59 H Estim Creat Clear Calc 48.5 Estimated GFR 42 Random Glucose 106 Calcium 8.8 Discharge Plan Discharge Patient Disposition: Home, Self-Care Discharge Diagnosis: Atrial fibrillation with rapid ventricular response Referrals: Uday Sheehan MD [Primary Care Provider] - 1 Week Discharge Medications: New amiodarone 200 mg Tablet 400 mg PO BID 14 Days Qty: 56 0RF amiodarone 200 mg tablet 200 mg PO DAILY Qty: 90 0RF Rx Instructions: to start after finishing the 400 mg bid dose. Continued acetaminophen [Tylenol Extra Strength] 500 mg Tablet 1,000 mg PO BEDTIME 0RF acetaminophen 500 mg Tablet 500 mg PO DAILY 0RF levothyroxine 88 mcg Tablet 132 mcg PO KAPLAN@0600 0RF oxycodone 5 mg tablet 5 mg PO BEDTIME PRN (Reason: pain) 0RF levothyroxine 88 mcg tablet 88 mcg PO MOTUWETHFRSA@0600 0RF pravastatin 80 mg tablet 80 mg PO BEDTIME 0RF omeprazole 40 mg capsule,delayed release(DR/EC) 40 mg PO BID@0630,1630 0RF Eliquis 5 mg tablet 5 mg PO BID 0RF Hold Instructions: Resume on 03/05/21. torsemide 20 mg tablet 20 mg PO Q3D 0RF Discharge Orders: Discharge Order (Routine); Ordered 08/05/21 Ordered By: Fátima Cortez Diet: advance to usual diet Activity on Discharge: As tolerated Stand Alone Forms: Patient Portal Discharge page Care Plan Goals: Read below Health Concerns: Read below Plan of Treatment: Read below Assessment: You were admitted to the hospital for evaluation of weakness and palpitation. Found to be in atrial fibrillation with rapid ventricular response. Evaluated by Cardiology team who did cardioversion with good response as your rhythm converted back to sinus. You were started on amiodarone that keep you in the sinus rhythm. Start amiodarone 400 mg twice daily for the next 2 weeks. Then continue with amiodarone 200 mg daily To follow up with Cardiology as outpatient.
--- NOTE | 2021-08-05 11:30 | MHC.CM.PN ---
PT TO DC HOME TODAY WITH NO NEW SERVICES TO TRANSPORT
--- NOTE | 2021-08-05 11:53 | PC.NURSE ---
Pt alert and oriented x3. C/O chest pain. PRN Tylneol givemn with good effect. Pt is NSR on tele. Pt will D/C home today.
== END 2021-08-05 12:35 | disposition home or self-care (01) | DRG 309 ==
LOC: HO.ED 21:28 → HO.EDOVER 22:02
PROVIDERS: Internal Medicine Cardiovascular Disease; Admitting Provider Internal Medicine; Emergency Provider Internal Medicine; PCP Internal Medicine; Visit Provider Student in an Organized Health Care Education/Training Program
PROC: 5A2204Z Restoration of Cardiac Rhythm, Single (ICD-10-PCS; principal; 2021-08-04 11:30)
DX: I48.0 Paroxysmal atrial fibrillation (principal); I13.0 Hypertensive heart and chronic kidney disease with heart failure and stage 1 through stage 4 chronic kidney disease, or unspecified chronic kidney disease; N18.31 Chronic kidney disease, stage 3a; Z20.822 Contact with and (suspected) exposure to COVID-19; K21.9 Gastro-esophageal reflux disease without esophagitis; E78.5 Hyperlipidemia, unspecified; E03.9 Hypothyroidism, unspecified; I50.9 Heart failure, unspecified; G47.30 Sleep apnea, unspecified; Z96.643 Presence of artificial hip joint, bilateral; Z88.5 Allergy status to narcotic agent; Z88.8 Allergy status to other drugs, medicaments and biological substances; Z79.01 Long term (current) use of anticoagulants; Z79.890 Hormone replacement therapy; Z79.899 Other long term (current) drug therapy
CPT/HCPCS: 36415; 71046; 78580; 80048; 80053; 81001; 83605; 83735; 83880; 84443; 84484; 85025; 85610; 85730; 87040; 87635; 92960; 93005; 96360; 96365; 96375; 99284; 99285; 99291; A9540; J0282

== ENCOUNTER 2021-09-13 12:52 | Day surgery (SDC) | payer MEDICARE, SELFPAY ==
[2021-09-08 09:37] VITALS: BMI 36.6
[2021-09-13 13:37] VITALS: BP 211/84; PULSE 60; RESP 16; TEMP 36.8; O2SAT 96
[2021-09-13] MEDS: Lactated Ringers 1,000 ML 50 ML IVCONT (14:00)
--- NOTE | 2021-09-13 14:49 | HO.ANESPROP2 ---
HPI - Anesthesia Eval Consult details Narrative: 81 yo male patient for EGD PMFSH Active Problems Active Problems: All Active Problems (Updated 09/08/21 @ 09:32 by Jackie Villa RN) Murmur, heart (Acute) HTN (hypertension) (Acute) Sleep apnea (Acute) Renal stones (Acute) Elevated PSA (Acute) BPH loc w urin obs/LUTS (Acute) Increased BMI On eliquis. Last dose 09/09/21 GALLITO Past Medical History Medical History Atrial fibrillation BPH loc w urin obs/LUTS Chest pain Chronic renal disease, stage 3, moderately decreased glomerular filtration rate (GFR) between 30-59 mL/min/1.73 square meter COVID-19 vaccine series completed Elevated PSA Facet arthropathy, cervical GERD (gastroesophageal reflux disease) Heart failure HTN (hypertension) Hyperlipidemia On anticoagulant therapy Renal stones Sleep apnea Symptomatic cholelithiasis Thyroid disease Family History Family history of problems with anesthesia: No Surgical History Surgical History H/O colonoscopy History of surgery History of total replacement of both hip joints Hx of arthroscopic knee surgery Hx of cataract extraction Hx of cystoscopy S/P laparoscopic cholecystectomy History of Problems with Anesthesia: No Social History Social History Household Members: Spouse Housing: House Are you a primary acute care certified nursing assistant to a significant other at home: No Do you presently have visiting nurse or other home services: No Alcohol intake: never Patient Tobacco Use Status: Never used Tobacco Use of substances other than those prescribed or required for medical reasons: No Have you been hit, kicked, punched, or otherwise hurt by someone within the past year? If so, by whom?: No Are you DNR?: No Advance Directives: No Advance Directives Information Provided: Yes Advance Directives on File: No Recently lost weight without trying: No Eating poorly because of decreased appetite: No Nutrition Risks: No Nutritional Risk service: No Current occupational status: retired Meds Allergies Allergy/AdvReac Type Severity Reaction Status Date / Time ibuprofen [IBUPROFEN] Allergy Intermediate HIVES Verified 09/13/21 13:23 hydromorphone [From DILAUDID] AdvReac Intermediate ILEUS Verified 09/13/21 13:23 procaine [From Novocain] AdvReac Intermediate has no Verified 09/13/21 13:23 numbing effect-states monocain works narcotic pain meds AdvReac Intermediate does not Uncoded 08/03/21 17:56 relieve pain per patient Active Medications: Current Medications Lactated Ringer's (Lr) 1,000 mls @ 50 mls/hr IVCONT .Q20H AIDAN Last Admin: 09/13/21 14:00 Dose: 50 mls/hr Documented by: Home Medications Medication Instructions Recorded Confirmed Last Taken Type levothyroxine 88 mcg tablet 88 mcg PO MOTUWETHFRSA@0600 11/12/20 09/08/21 09/13/21 06:30 History apixaban 5 mg tablet (Eliquis) 5 mg PO BID 02/09/21 09/13/21 09/09/21 History pravastatin 80 mg tablet 80 mg PO BEDTIME 02/09/21 09/08/21 08/02/21 History torsemide 20 mg tablet 20 mg PO Q3D 02/09/21 09/08/21 08/02/21 History acetaminophen 500 mg tablet 500 mg PO BID PRN 08/03/21 09/08/21 08/03/21 History levothyroxine 88 mcg tablet 132 mcg PO KAPLAN@0600 08/03/21 09/08/21 08/01/21 History oxycodone 5 mg tablet 5 mg PO BEDTIME PRN 08/03/21 09/08/21 Unknown History pantoprazole 40 mg tablet,delayed 1 tab PO BID 09/08/21 09/08/21 Unknown History release Exam Exam Date and Time: September 13, 2021 1449 Height,Weight and Vital Signs: Height 5 ft 11 in Weight 119.295 kg Last Vital Signs Temp 98.2 F 09/13/21 13:37 Pulse 60 09/13/21 13:37 Resp 16 09/13/21 13:37 BP 211/84 H 09/13/21 13:37 Pulse Ox 96 09/13/21 13:37 Airway Mallampati Class: III TM Dist: >3cm Neck ROM: Limited Loose/Missing/Broken Teeth: Yes (Broken top front right, missing back) Heart: RRR + murmur Lungs: CTAB Assessment and Plan Assessment Anesthesia Assessment: Anesthesia Plan Discussed and Chart Reviewed Final Anesthetic Review Family History of Problems with Anesthesia: No History of Problems with Anesthesia: No NPO: Yes ASA Class: III Final Preanesthetic Review: No Changes in Pt Med Stat, Meds/Allgs Chart Reviewed, Consent Obtained/Reviewed and Anes Risks/Benef Reviewed Patient Risk: Intermediate Procedure Risk: Low Assessment/Block/Sedation in SS: Assess/Block/Sedation-SS Anesthetic Plan Anesthetic Plan: MAC: Disposition: Standard PACU
[2021-09-13 15:57] VITALS: BP 128/71; PULSE 52; RESP 20; TEMP 36.7; O2SAT 98
--- NOTE | 2021-09-13 15:59 | P.BOP_ITS ---
Brief Operative Note Date of Service: 09/13/21 Pre-op diagnosis: Chest discomfort Post-op diagnosis: other (GERD, Hiatal hernia) Procedure: EGD with biopsies Surgeon: Louis Maki Anesthesia: MAC Was an Operations Lieutenant used for this Procedure?: No Estimated blood loss (mL): 2.0 Pathology: other (A. Descending duodenum) Condition: stable Disposition: PACU
[2021-09-13 16:12] VITALS: BP 168/75; PULSE 59; RESP 20; O2SAT 96
--- NOTE | 2021-09-13 20:12 | OP_ITS ---
SURGEON: Louis Maki MD INDICATIONS: The patient presents for evaluation of chronic chest discomfort and intermittent diarrhea. Full consent has been obtained from him for this, including risks of bleeding and perforation. PREOPERATIVE DIAGNOSIS: POSTOPERATIVE DIAGNOSIS: PROCEDURE PERFORMED: Esophagogastroduodenoscopy with biopsies. ESTIMATED BLOOD LOSS: COMPLICATIONS: ANESTHESIA: Monitored anesthesia care. ASSISTANTS: SPECIMENS: PREOPERATIVE DIAGNOSES: Chronic chest discomfort and intermittent diarrhea. POSTOPERATIVE DIAGNOSES: Chronic chest discomfort, intermittent diarrhea, esophagitis, small hiatal hernia, rule out celiac disease. DESCRIPTION OF PROCEDURE: The patient was placed in the left lateral decubitus position. The Olympus video gastroscope was passed in the posterior oropharynx and upper esophagus under direct vision. The scope was passed slowly to the distal esophagus. The gastroesophageal junction appeared at 39 cm. This area appeared regular, without any esophagitis or Joshi esophagus. Just beneath this was an approximately 3 or 4 mm inflammatory appearing polyp. It was somewhat friable when irrigated with the water. Therefore, given its benign appearance and the fact that he has to go back on his Eliquis, I opted not to biopsy it. The scope was advanced to the pylorus and the duodenum was cannulated to the descending portion. The duodenum including the bulb appeared normal without mass or ulceration. I did obtain 3 biopsies from the 2nd and 3rd portions of the duodenum given the intermittent diarrhea. The scope was withdrawn back into the the stomach. The gastric antrum and body appeared normal with good peristalsis. The scope was retroflexed visualizing the proximal stomach carefully, which appeared normal, without any sign of mass or ulceration. The scope was straightened and withdrawn back to the esophagus. The esophageal mucosa was carefully inspected. At 35 cm was a single 2 to 3 mm erosion. Again, biopsies were not obtained as he had to go back on his Eliquis. The remainder of the esophageal mucosa appeared normal. The scope was withdrawn from the patient. He tolerated the procedure well and was returned to the recovery area in stable condition. IMPRESSION: 1. Small hiatal hernia. 2. Minimal esophagitis. 3. Inflammatory polyp at gastroesophageal junction. 4. Rule out celiac disease. PLAN: The results of the biopsies will be checked. He was advised to continue his pantoprazole. He was advised to resume his Eliquis by tomorrow. At this point, I did not find any significant abnormalities that would account for his chronic chest discomfort. At this point, I would continue to observe him in that regard. He did recently see his pump and still operator and the pump and still operator did not think there was any active cardiac disease. At this point, if things are stable, he will see me on a p.r.n. basis. This has been discussed with his . MD KRISTOPHER Reyes/TERESITA / [id number]
== END 2021-09-13 16:48 | disposition home or self-care (01) ==
PROVIDERS: PCP Internal Medicine; Visit Provider Internal Medicine
PROC: 0DJ08ZZ Inspection of Upper Intestinal Tract, Via Natural or Artificial Opening Endoscopic (ICD-10-PCS; CPT 43235; principal; 2021-09-13 14:10)
DX: K21.9 Gastro-esophageal reflux disease without esophagitis (principal); R19.7 Diarrhea, unspecified; K20.80 Other esophagitis without bleeding; K44.9 Diaphragmatic hernia without obstruction or gangrene; K31.7 Polyp of stomach and duodenum; G47.33 Obstructive sleep apnea (adult) (pediatric); E78.5 Hyperlipidemia, unspecified; E03.9 Hypothyroidism, unspecified; I48.91 Unspecified atrial fibrillation; Z79.01 Long term (current) use of anticoagulants; Z79.899 Other long term (current) drug therapy; Z90.49 Acquired absence of other specified parts of digestive tract; Z96.643 Presence of artificial hip joint, bilateral
CPT/HCPCS: 43239; 88305; 88312; 88341; 88342

== ENCOUNTER 2021-10-05 06:31 | Outpatient (REF) | payer MEDICARE, SELFPAY ==
[2021-10-05 12:05] LABS: Alanine Aminotransferase 15 U/L (0-40); Albumin Level 3.7 g/dL (3.5-5.0); Alkaline Phosphatase 84 U/L (39-117); Aspartate Amino Transferase 16 U/L (5-37); Bilirubin Direct 0.2 mg/dL (0.0-0.5); Bilirubin Total 0.5 mg/dL (0.0-1.0); Total Protein 6.6 g/dL (6.5-8.0)
[2021-10-05 12:12] LABS: TSH reflex Free T4 1.45 uIU/mL (0.32-4.0)
== END 2021-10-05 06:32 | disposition home or self-care (01) ==
LOC: HO.HMGCLDS 06:31
PROVIDERS: PCP Internal Medicine; Visit Provider Internal Medicine Cardiovascular Disease
DX: I48.91 Unspecified atrial fibrillation (principal)
CPT/HCPCS: 36415; 80076; 84443

== ENCOUNTER 2021-10-27 16:46 | Outpatient (REF) | payer MEDICARE, SELFPAY ==
--- NOTE | ~2021-10-27 | XR_ITS ---
EXAMINATION: XR LUMBOSACRAL SPINE CLINICAL INFORMATION: Low back pain. COMPARISON: None TECHNIQUE: Three views of the lumbosacral spine. FINDINGS: There is normal lumbar lordosis. There is mild levoscoliosis. There is loss of disc height with moderate spondylosis at every disc level. No visible acute fracture or lytic process seen. The SI joints are symmetrical and normal. There is bilateral hip joint prosthesis. XR/XR lumbar spine 2-3V IMPRESSION: Mild levoscoliosis with degenerative disc changes and moderate spondylosis at every disc level. No acute fracture or dislocation seen.
== END 2021-10-27 16:47 | disposition home or self-care (01) ==
LOC: HO.XRAY 16:46
PROVIDERS: PCP Internal Medicine; Visit Provider Internal Medicine
DX: M54.50 Low back pain, unspecified (principal)
CPT/HCPCS: 72100

== ENCOUNTER 2021-12-07 06:08 | Outpatient (REF) | payer MEDICARE, SELFPAY ==
[2021-12-07 12:20] LABS: Alanine Aminotransferase 14 U/L (0-40); Albumin Level 3.7 g/dL (3.5-5.0); Alkaline Phosphatase 71 U/L (39-117); Anion Gap 13 (12-20); Aspartate Amino Transferase 18 U/L (5-37); Bilirubin Total 0.6 mg/dL (0.0-1.0); Blood Urea Nitrogen 18 mg/dL (9-16); Calcium 8.7 mg/dL (8.4-10.2); Carbon Dioxide 23 mmol/L (22-29); Chloride 109 mmol/L (96-108); Estimated Glomerular Filt Rate 42; Glucose Random 110 mg/dL (60-115); Sodium 141 mmol/L (135-145); Total Protein 6.5 g/dL (6.5-8.0)
[2021-12-07 12:32] LABS: TSH reflex Free T4 1.26 uIU/mL (0.32-4.0)
== END 2021-12-07 06:09 | disposition home or self-care (01) ==
LOC: HO.HMGCLDS 06:08
PROVIDERS: PCP Internal Medicine; Visit Provider Internal Medicine Cardiovascular Disease
DX: I48.19 Other persistent atrial fibrillation (principal)
CPT/HCPCS: 36415; 80053; 84443

== ENCOUNTER → 2021-12-30 11:24 | Outpatient (BNVA) | payer MEDICARE, SELFPAY | PROVIDERS: PCP Internal Medicine; Visit Provider Urology | DX: N20.0 Calculus of kidney (principal); R97.20 Elevated prostate specific antigen [PSA] | CPT/HCPCS: 51798; 99212 ==

== ENCOUNTER 2022-02-08 08:20 | Outpatient (REF) | payer MEDICARE, SELFPAY ==
--- NOTE | ~2022-02-08 | US_ITS ---
EXAMINATION: US RETROPERITONEAL LIMITED (RENAL ONLY) CLINICAL INFORMATION: Calculus of kidney. COMPARISON: CT abdomen and pelvis 10/09/2020. Renal ultrasound 11/01/2017 and 10/07/2016. X-ray abdomen KUB 01/08/2014. TECHNIQUE: Real-time imaging of the kidneys. FINDINGS: RIGHT KIDNEY: 10.6 x 5.6 x 4.9 cm (SAG x AP x TRV). The kidney is normal in size, contour, and echogenicity. Renal cortical thickness is normal. No calculi or focal parenchymal lesions. No hydronephrosis. There is minimal perinephric fluid seen in the mid and lower pole. LEFT KIDNEY: 11.6 x 3.9 x 4.3 cm (SAG x AP x TRV). The kidney is normal in size, contour, and echogenicity. Renal cortical thickness is normal. No focal parenchymal lesions or hydronephrosis. There are nonobstructive echogenic stones in the lower pole measuring 0.40 x 0.30 x 0.55 cm, 0.55 x 0.25 x 0.60 cm and 0.50 x 0.40 x 0.55 cm. US/US renal BI IMPRESSION: Nonobstructive echogenic stones lower pole of the left kidney. No caliectasis or hydronephrosis. Small amount of free fluid around the lateral border of the right kidney but no echogenic stones or hydronephrosis.
[2022-02-08 12:18] LABS: Prostate Specific Antigen 4.63 ng/mL (<0.05-4.0)
== END 2022-02-08 08:21 | disposition home or self-care (01) ==
LOC: HO.HMGCX 08:20
PROVIDERS: PCP Internal Medicine; Visit Provider Urology
DX: Z12.5 Encounter for screening for malignant neoplasm of prostate (principal); N20.0 Calculus of kidney; N40.1 Benign prostatic hyperplasia with lower urinary tract symptoms; N13.8 Other obstructive and reflux uropathy
CPT/HCPCS: 36415; 76775; 84153

== ENCOUNTER → 2022-02-16 08:07 | Outpatient (BNVA) | payer MEDICARE, SELFPAY | PROVIDERS: PCP Internal Medicine; Visit Provider Urology | DX: N20.0 Calculus of kidney (principal); N40.1 Benign prostatic hyperplasia with lower urinary tract symptoms; N13.8 Other obstructive and reflux uropathy | CPT/HCPCS: Q3014 ==

== ENCOUNTER 2022-03-02 15:02 | Outpatient (REF) | payer MEDICARE, SELFPAY ==
--- NOTE | ~2022-03-02 | US_ITS ---
EXAMINATION: US RETROPERITONEAL LIMITED (RENAL ONLY) CLINICAL INFORMATION: Rule out renal stone and obstruction. COMPARISON: Previous renal ultrasound 02/08/2022 CT of the abdomen and pelvis October 2020 TECHNIQUE: Grayscale and color imaging of the kidneys. Exam is limited due to patient body habitus and bowel gas. FINDINGS: RIGHT KIDNEY: 10 x 6 x 5 cm (SAG x AP x TRV). The kidney is normal in size, contour, and echogenicity. Renal cortical thickness is normal. No calculi or focal parenchymal lesions. No hydronephrosis. LEFT KIDNEY: 11.5 x 4 x 4 cm (SAG x AP x TRV). The kidney is normal in size, contour, and echogenicity. Renal cortical thickness is normal. There are 3 echogenic densities with twinkle artifact in the lower pole questionable for stones measuring 5 mm. This is similar to exam from earlier this month. No stone is seen on CT from October 2020. No focal parenchymal lesions. No hydronephrosis. US/US renal BI IMPRESSION: Question left renal stones. No hydronephrosis..
== END 2022-03-02 15:03 | disposition home or self-care (01) ==
LOC: HO.US 15:02
PROVIDERS: PCP Internal Medicine; Visit Provider Internal Medicine
DX: N20.0 Calculus of kidney (principal)
CPT/HCPCS: 76775

== ENCOUNTER 2022-04-08 06:02 | Outpatient (REF) | payer MEDICARE, SELFPAY ==
[2022-04-08 12:05] LABS: Basophils Percent Auto 0.4 % (0-2); Eosinophils Absolute Auto 0.2 X10*3/uL (0.0-0.4); Eosinophils Percent Auto 3.1 % (0-4); Hematocrit 41.6 % (42.0-52.0); Hemoglobin 13.3 g/dl (14.0-18.0); Imm Gran Abs Auto 0.01 X10*3/uL (0.00-0.03); Imm Gran Pct Auto 0.1 % (0.0-0.4); Lymphocytes Absolute Auto 2.1 X10*3/uL (1.2-4.9); Lymphocytes Percent Auto 30.1 % (20-40); MANUAL DIFF FLAG NO; Mean Corpuscular Hemoglobin 29.3 pg (27.0-33.0); Mean Corpuscular Volume 91.6 fL (80.0-98.0); Mean Platelet Volume 10.8 fL (9.4-12.4); Monocytes Percent Auto 14.5 % (2-11); Neutrophils Absolute Auto 3.6 x10*3/uL (2.0-8.3); Neutrophils Percent Auto 51.8 % (45-73); Platelet Count 139 X10*3/uL (160-400); Red Blood Count 4.54 X10*6/uL (4.60-5.80); Red Cell Distribution Width 14.2 % (11.0-16.0)
[2022-04-08 12:16] LABS: Appearance Urine Clear; Color Urine Yellow; Glucose Urine UA Negative (Negative); Leukocyte Esterase Urine Negative (Negative); Nitrite Urine Negative (Negative); UMIC TRIGGER UACC YES; Urine Blood Moderate (2+) (Negative); Urine Ketones Negative (Negative); Urine Protein Negative (Neg-Trace)
[2022-04-08 12:27] LABS: Creatinine Urine 131.34 mg/dL; Protein/Creatinine Ratio, Ur 0.09 (<0.2); Total Protein Urine Random 12 mg/dL (<12)
[2022-04-08 12:34] LABS: Anion Gap 14 (12-20); Blood Urea Nitrogen 25 mg/dL (9-16); Carbon Dioxide 24 mmol/L (22-29); Chloride 108 mmol/L (96-108); Estimated Glomerular Filt Rate 40; Potassium 4.1 mmol/L (3.3-5.1); Sodium 142 mmol/L (135-145)
[2022-04-08 12:44] LABS: Bacteria Urine None Seen (None Seen); Hyaline Casts Urine 0-2 /LPF (0-2); RBC Urine >20 /HPF (0-2); Squamous Epithelial Cell Urine 0-2 /HPF (0-2); WBC Urine 0-5 /HPF (0-5)
== END 2022-04-08 06:03 | disposition home or self-care (01) ==
LOC: HO.HMGCLDS 06:02
PROVIDERS: PCP Internal Medicine; Visit Provider Internal Medicine Nephrology
DX: N18.30 Chronic kidney disease, stage 3 unspecified (principal)
CPT/HCPCS: 36415; 80051; 81001; 81003; 82310; 82565; 84156; 84520; 85025

== ENCOUNTER 2022-06-24 13:53 | Outpatient (REF) | payer MEDICARE, SELFPAY ==
--- NOTE | ~2022-06-24 | XR_ITS ---
EXAMINATION: XR CHEST CLINICAL INFORMATION: Cough COMPARISON: Chest radiographs 08/03/2021, 12/26/2018 TECHNIQUE: 2 views of the chest were obtained. FINDINGS: The lungs are clear. There is no airspace consolidation or groundglass opacity. No hyperinflation. The costophrenic sulci are clear. There is mild fullness cardiopericardial silhouette, similar to prior exams. No vascular congestion. The hilar and mediastinal contours and bony structures are stable. XR/XR chest 2V IMPRESSION: Lungs clear. No acute intrathoracic disease.
== END 2022-06-24 13:54 | disposition home or self-care (01) ==
LOC: HO.XRAY 13:53
PROVIDERS: PCP Internal Medicine; Visit Provider Internal Medicine
DX: R09.89 Other specified symptoms and signs involving the circulatory and respiratory systems (principal)
CPT/HCPCS: 71046

== ENCOUNTER 2022-07-06 08:11 | Outpatient (REF) | payer MEDICARE, SELFPAY ==
--- NOTE | ~2022-07-06 | XR_ITS ---
EXAMINATION: XR ABDOMEN KUB CLINICAL INDICATION: Kidney stone COMPARISON: Previous renal ultrasound February [address] of the abdomen and pelvis October 2020 TECHNIQUE: AP view of the abdomen. FINDINGS: No stone is seen by KUB. Bowel gas pattern is normal. Surgical clips in the right upper quadrant suggestive of previous cholecystectomy. Degenerative changes of the spine. Bilateral hip replacements. XR/XR KUB IMPRESSION: No stone seen.
== END 2022-07-06 08:12 | disposition home or self-care (01) ==
LOC: HO.HMGCX 08:11
PROVIDERS: PCP Internal Medicine; Visit Provider Urology
DX: Z13.89 Encounter for screening for other disorder (principal)
CPT/HCPCS: 74018

== ENCOUNTER 2022-07-07 13:25 | Inpatient (IN) | payer MEDICARE, SELFPAY ==
--- NOTE | ~2022-07-07 | CT_ITS ---
EXAMINATION: CT ABDOMEN AND PELVIS WITHOUT CONTRAST CLINICAL INFORMATION: Flank pain, history of renal stones COMPARISON: CT abdomen and pelvis 10/09/2020 TECHNIQUE: Multidetector volumetric imaging was performed from the superior aspect of the liver through the pubic symphysis. Sagittal and coronal reformatted images were obtained on the technologist's workstation. This CT examination was performed using dose optimization techniques as appropriate, variously including the following: *Automated exposure control *Adjustment of mA and/or kV according to patient size (this includes techniques or standardized protocols for targeted exams where dose is matched to indication/reason for exam; i.e. extremities or head) *Use of iterative reconstruction technique DLP: 1000 mGy-cm FINDINGS: LUNG BASES: The visualized lung bases are unremarkable. LIVER, GALLBLADDER, AND BILIARY TREE: The liver is normal in size, shape, and attenuation. No focal hepatic lesion or biliary ductal dilatation is present. Status post cholecystectomy. PANCREAS: Unremarkable. SPLEEN: Unremarkable. ADRENAL GLANDS: Unremarkable. KIDNEYS AND URETERS: Cluster of 3 left proximal ureteral stones, measuring 0.9, 0.5, and 0.6 cm in size with moderate left hydroureteronephrosis and left-sided perinephric stranding. Small 0.4 cm nonobstructing calculus in the dependent left renal pelvis and punctate nonobstructing left lower pole calculus. No right renal calculi. No right hydronephrosis. No renal lesion seen. BLADDER: Grossly unremarkable allowing for streak artifact from total hip replacements. GASTROINTESTINAL TRACT: Colonic diverticulosis most extensively involving the sigmoid. No evidence of acute diverticulitis. No dilated bowel loops or bowel wall thickening. Normal appendix. No free air or ascites. ABDOMINAL WALL: No significant hernia is appreciated. LYMPH NODES: No lymphadenopathy. VASCULAR: Tortuous normal caliber abdominal aorta. Mild vascular calcifications. PELVIC VISCERA: Grossly unremarkable, but assessment is limited due to streak artifact. OSSEOUS STRUCTURES: No acute fracture or suspicious osseous lesion. Vertebral body hemangioma at L3 redemonstrated. Advanced multilevel spondylosis in the lumbar spine with mild multilevel degenerative retrolisthesis and multilevel bilateral facet arthrosis. CT/CT abdomen pelvis wo IV con IMPRESSION: 1. Cluster of 3 left proximal ureteral stones measuring 0.9, 0.5, and 0.6 cm in size with moderate left hydroureteronephrosis and left perinephric stranding. 2. Additional small nonobstructing left renal calculi, as described.
--- NOTE | ~2022-07-07 | XR_ITS ---
EXAMINATION: XR CHEST CLINICAL INFORMATION: Chest pain COMPARISON: 06/24/2022 TECHNIQUE: Frontal view of the chest was obtained. FINDINGS: EKG pads and wires overlie the chest. Lungs are well expanded and clear. No evidence of pulmonary edema, pleural effusion or pneumothorax. Cardiomediastinal silhouette has stable size and contour. Pulmonary vascular pattern is normal. The visualized bones are intact. Skeletal findings include multilevel osteophyte formation of the spine and osteoarthritis of glenohumeral joints. XR/XR chest 1V IMPRESSION: No acute pulmonary disease compared to 06/24/2022.
--- NOTE | ~2022-07-07 | FL_ITS ---
EXAMINATION: XR FLUOROSCOPY WITH IMAGES CLINICAL INFORMATION: Cystoscopy COMPARISON: CT abdomen and pelvis without contrast 07/07/2022 TECHNIQUE: Fluoroscopy Supervised By: Dr. Sandoval. Fluoroscopy Time: 26 seconds. Cumulative Dose: 16.72 mGy. Images: 4. FINDINGS: There is guidewire seen in the left urinary tract with subsequent image demonstrating left ureteral stent in position. FL/FL guidance in OR IMPRESSION: Fluoroscopy for urologic procedure.
--- NOTE | 2022-07-07 13:52 | ECG_ITS ---
Test Reason : chest pain Blood Pressure : / mmHG Vent. 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 rate has increased BY 82 BPM T wave inversion no longer evident in Lateral leads Referred By: Yuliet Lama Electronically Signed By:WON PURCELL MD
[2022-07-07 14:12] VITALS: BP 140/93; PULSE 139; RESP 18; TEMP 36.8; O2SAT 95
--- NOTE | 2022-07-07 14:27 | ED_ITS ---
HPI - Abdominal Pain General Chief Complaint: Arrhythmia/Palpitations Stated Complaint: l side lower abd pain sent in by dr Sheehan Time Seen by Provider: 07/07/22 14:15 Source: patient Mode of arrival: ambulatory History of Present Illness HPI narrative: This is an 82-year-old male with atrial fibrillation currently in RVR and on chronic anticoagulation that he is actually stopped himself since Monday because he has had left flank pain that he felt was very similar to his prior kidney stones but denies any nausea, vomiting, fever or chills. Patient states that he has remained off of the Eliquis and that on Monday he had x-rays that were ordered by the urology clinic and he called back in asked about the results and he was informed that ?there was no stone?. He presents today after going on a visit with his primary care provider who referred him to the emergency room for persistent left flank pain. Related Data Home Medications Medication Instructions Recorded Confirmed levothyroxine 88 mcg tablet 88 mcg PO MOTUWETHFRSA@0600 11/12/20 09/08/21 apixaban 5 mg tablet (Eliquis) 5 mg PO BID 02/09/21 09/13/21 pravastatin 80 mg tablet 80 mg PO BEDTIME 02/09/21 09/08/21 torsemide 20 mg tablet 20 mg PO Q3D 02/09/21 09/08/21 acetaminophen 500 mg tablet 500 mg PO BID PRN Pain 08/03/21 09/08/21 levothyroxine 88 mcg tablet 132 mcg PO KAPLAN@0600 08/03/21 09/08/21 oxycodone 5 mg tablet 5 mg PO BEDTIME PRN pain 08/03/21 09/08/21 pantoprazole 40 mg tablet,delayed 1 tab PO BID 09/08/21 09/08/21 release amlodipine 2.5 mg tablet 2.5 mg PO DAILY 02/15/22 prednisone 10 mg tablet 0 mg PO 02/15/22 Previous Rx's Medication Instructions Recorded amiodarone 200 mg tablet 200 mg PO DAILY #90 tabs 08/05/21 pyridoxine (vitamin B6) 100 mg 100 mg PO DAILY 90 days #90 tabs 02/16/22 tablet Allergies Allergy/AdvReac Type Severity Reaction Status Date / Time ibuprofen [IBUPROFEN] Allergy Intermediate HIVES Verified 02/15/22 11:14 hydromorphone [From DILAUDID] AdvReac Intermediate ILEUS Verified 02/15/22 11:14 procaine [From Novocain] AdvReac Intermediate has no Verified 02/15/22 11:14 numbing effect-states monocain works narcotic pain meds AdvReac Intermediate does not Uncoded 02/15/22 11:14 relieve pain per patient Review of Systems Review of Systems Pertinent positives and negatives as stated in HPI. PMFSH Past Medical History Source: nursing notes reviewed Medical History Atrial fibrillation BPH loc w urin obs/LUTS Chest pain Chronic renal disease, stage 3, moderately decreased glomerular filtration rate (GFR) between 30-59 mL/min/1.73 square meter COVID-19 vaccine series completed Elevated PSA Facet arthropathy, cervical GERD (gastroesophageal reflux disease) Heart failure HTN (hypertension) Hyperlipidemia On anticoagulant therapy Renal stones Sleep apnea Symptomatic cholelithiasis Thyroid disease Surgical History H/O colonoscopy History of surgery History of total replacement of both hip joints Hx of arthroscopic knee surgery Hx of cataract extraction Hx of cystoscopy S/P laparoscopic cholecystectomy Social History Social History Household Members: Spouse Housing: House Are you a primary child care director to a significant other at home: No Do you presently have visiting nurse or other home services: No Alcohol intake: never Patient Tobacco Use Status: Never used Tobacco Advance Directives: Yes Advance Directives on File: No service: No Current occupational status: retired Physical Exam ED Vital Signs: Vital Signs - 24 hr 07/07/22 14:12 07/07/22 14:29 07/07/22 15:12 Temperature 98.2 F 98.6 F 97.9 F Pulse Rate 139 H 139 H 136 H Respiratory Rate 18 12 11 L Blood Pressure 140/93 H 135/93 H 120/80 Pulse Oximetry 95 97 94 Oxygen Delivery Method Room Air Room Air Room Air 07/07/22 15:34 Temperature Pulse Rate 136 H Respiratory Rate 12 Blood Pressure 120/80 Pulse Oximetry 95 Oxygen Delivery Method Room Air BMI result Body Mass Index 36.3 VITAL SIGNS: Reviewed. GENERAL: Well developed, well nourished, in no acute distress. HEAD: Normocephalic/atraumatic EYES: PERRLA, EOMI EARS: Ext canals without abnormality OROPHARYNX: no oral lesions noted, posterior pharynx clear LUNGS: Normal breath sounds. No adventitious sounds or accessory muscle use. SpO2<95> CARDIOVASCULAR: Irregular rate and rhythm without noted murmurs, no JVD or lower extremity edema. ABDOMEN: Soft, left flank pain, tenderness on palpation, non-distended with bowel sounds MUSCULOSKELETAL: No tenderness, deformities, or effusions noted on gross inspection. EXTREMITIES: No cyanosis, clubbing or edema. SKIN: Inspection of the skin reveals no rashes NEUROLOGIC: Alert and oriented x 4. Strength and sensation to light touch were grossly intact x 4. Medical Decision Making Medical Decision Making MDM Narrative: This is an 82-year-old male who is in atrial fibrillation with RVR, currently off of chronic anticoagulation due to left flank pain that he is certain is a stone, I agree with the patient that this is most consistent with renal colic. 1554: I reviewed all laboratory investigations, and imaging studies there is no evidence of leukocytosis or left shift, patient has stable chronic anemia there is an acute on chronic renal failure that is likely secondary to the proximal left ureteral stone that is noted on CT scan (it has not been officially read) that is associated with moderate to severe hydronephrosis. Although patient has a mild bump in his BNP this is likely attributable to the atrial fibrillation with RVR in combination with worsening renal function. Viral testing was noted to be positive for influenza B. I did consult Urology as well as hospitalist as documented below. We have tried to-5 mg Lopressor IV pushes without any change in heart rate, patient did received 25 mcg of fentanyl with mild improvement in pain. He does remain hemodynamically stable at this time. Will attempt 10 mg of Cardizem(1541). Differential Diagnosis Differential Diagnoses: The differential diagnosis associated with the pr esentation includes Will rule out infection, viral etiology, anemia, electrolyte abnormalities Admission/Observation Consideration of admission/observation: Escalation of care including admission/observation considered Consult Healthcare Provider Management of the patient was discussed with: Nurse Anesthetist 1515: I discussed, informed Urology, Dr. Ryan delgado, about patient, and the course. She has recommended admission to medicine and plans for at on intervention tomorrow afternoon. 1538: I discussed with the inpatient hospitalist, Dr. Loyola, the current situati on and they accept admission. 1559: Consulted Cardiology, Dr Briones, regarding a-fib w/ RVR and anticoagulation since off of eliquis since Monday. Recommends cardizem drip for refractory RVR and pending recommendations for heparin until surgery tomorrow. Lab Data MDM Lab Attestation statement: I reviewed the patient's lab results. Please see the discussion above Result Diagrams: 07/07/22 14:40 07/07/22 14:40 Labs: Lab Results 07/07/22 07/07/22 07/07/22 Range/Units 14:27 14:27 14:40 WBC 8.9 (4.8-10.8) X10*3/uL RBC 4.44 L (4.60-5.80) X10*6/uL Hgb 12.6 L (14.0-18.0) g/dl Hct 39.2 L (42.0-52.0) % MCV 88.3 (80.0-98.0) fL MCH 28.4 (27.0-33.0) pg MCHC 32.1 (31.0-36.0) g/dl RDW 14.1 (11.0-16.0) % Plt Count 165 (160-400) X10*3/uL MPV 9.5 (9.4-12.4) fL Immature Gran % (Auto) 0.2 (0.0-0.4) % Neut % (Auto) 67.2 (45-73) % Lymph % (Auto) 18.9 L (20-40) % Warrick % (Auto) 12.6 H (2-11) % Eos % (Auto) 0.8 (0-4) % Baso % (Auto) 0.3 (0-2) % Lymph # (Auto) 1.7 (1.2-4.9) X10*3/uL Warrick # (Auto) 1.1 (0.1-1.2) X10*3/uL Eos # (Auto) 0.1 (0.0-0.4) X10*3/uL Baso # (Auto) 0.0 (0.0-0.2) X10*3/uL Abs Immat Gran (auto) 0.02 (0.00-0.03) X10*3/uL Absolute Neuts (auto) 6.0 (2.0-8.3) x10*3/uL Absolute Nucleated RBC 0.000 (0.0-0.012) X10*3/uL Nucleated RBC % (auto) 0.0 (0.0-0.2) /100WBC PT (10.0-13.1) SEC INR (0.9-1.1) VBG pH (7.32-7.43) VBG pCO2 mmHg VBG pO2 mmHg VBG O2 Saturation % Sodium (135-145) mmol/L Potassium (3.3-5.1) mmol/L Chloride (96-108) mmol/L Carbon Dioxide (22-29) mmol/L Anion Gap (12-20) BUN (9-16) mg/dL Creatinine (0.5-1.4) mg/dL Estim Creat Clear Calc Estimated GFR Random Glucose (60-115) mg/dL Lactic Acid (0.5-2.0) mmol/L Calcium (8.4-10.2) mg/dL Total Bilirubin (0.0-1.0) mg/dL AST (5-37) U/L ALT (0-40) U/L Alkaline Phosphatase (39-117) U/L B-Natriuretic Peptide (<100) pg/mL Total Protein (6.5-8.0) g/dL Albumin (3.5-5.0) g/dL COVID-19 (DANNY) Negative (Negative) COVID-19 Clin Com See Note Influenza Type A (VERNON) Negative (Negative) Influenza Type B (VERNON) Positive A (Negative) Influenza A & B Note See Note 07/07/22 07/07/22 07/07/22 Range/Units 14:40 14:40 14:40 WBC (4.8-10.8) X10*3/uL RBC (4.60-5.80) X10*6/uL Hgb (14.0-18.0) g/dl Hct (42.0-52.0) % MCV (80.0-98.0) fL MCH (27.0-33.0) pg MCHC (31.0-36.0) g/dl RDW (11.0-16.0) % Plt Count (160-400) X10*3/uL MPV (9.4-12.4) fL Immature Gran % (Auto) (0.0-0.4) % Neut % (Auto) (45-73) % Lymph % (Auto) (20-40) % Warrick % (Auto) (2-11) % Eos % (Auto) (0-4) % Baso % (Auto) (0-2) % Lymph # (Auto) (1.2-4.9) X10*3/uL Warrick # (Auto) (0.1-1.2) X10*3/uL Eos # (Auto) (0.0-0.4) X10*3/uL Baso # (Auto) (0.0-0.2) X10*3/uL Abs Immat Gran (auto) (0.00-0.03) X10*3/uL Absolute Neuts (auto) (2.0-8.3) x10*3/uL Absolute Nucleated RBC (0.0-0.012) X10*3/uL Nucleated RBC % (auto) (0.0-0.2) /100WBC PT 12.9 (10.0-13.1) SEC INR 1.1 (0.9-1.1) VBG pH (7.32-7.43) VBG pCO2 mmHg VBG pO2 mmHg VBG O2 Saturation % Sodium 142 (135-145) mmol/L Potassium 4.5 (3.3-5.1) mmol/L Chloride 107 (96-108) mmol/L Carbon Dioxide 26 (22-29) mmol/L Anion Gap 14 (12-20) BUN 29 H (9-16) mg/dL Creatinine 2.51 H (0.5-1.4) mg/dL Estim Creat Clear Calc 30.5 Estimated GFR 25 Random Glucose 117 H (60-115) mg/dL Lactic Acid 0.8 (0.5-2.0) mmol/L Calcium 8.6 (8.4-10.2) mg/dL Total Bilirubin 0.8 (0.0-1.0) mg/dL AST 19 (5-37) U/L ALT 22 (0-40) U/L Alkaline Phosphatase 57 (39-117) U/L B-Natriuretic Peptide (<100) pg/mL Total Protein 6.1 L (6.5-8.0) g/dL Albumin 3.4 L (3.5-5.0) g/dL COVID-19 (DANNY) (Negative) COVID-19 Clin Com Influenza Type A (VERNON) (Negative) Influenza Type B (VERNON) (Negative) Influenza A & B Note 07/07/22 07/07/22 Range/Units 14:40 14:50 WBC (4.8-10.8) X10*3/uL RBC (4.60-5.80) X10*6/uL Hgb (14.0-18.0) g/dl Hct (42.0-52.0) % MCV (80.0-98.0) fL MCH (27.0-33.0) pg MCHC (31.0-36.0) g/dl RDW (11.0-16.0) % Plt Count (160-400) X10*3/uL MPV (9.4-12.4) fL Immature Gran % (Auto) (0.0-0.4) % Neut % (Auto) (45-73) % Lymph % (Auto) (20-40) % Warrick % (Auto) (2-11) % Eos % (Auto) (0-4) % Baso % (Auto) (0-2) % Lymph # (Auto) (1.2-4.9) X10*3/uL Warrick # (Auto) (0.1-1.2) X10*3/uL Eos # (Auto) (0.0-0.4) X10*3/uL Baso # (Auto) (0.0-0.2) X10*3/uL Abs Immat Gran (auto) (0.00-0.03) X10*3/uL Absolute Neuts (auto) (2.0-8.3) x10*3/uL Absolute Nucleated RBC (0.0-0.012) X10*3/uL Nucleated RBC % (auto) (0.0-0.2) /100WBC PT (10.0-13.1) SEC INR (0.9-1.1) VBG pH 7.46 H (7.32-7.43) VBG pCO2 34 mmHg VBG pO2 43 mmHg VBG O2 Saturation 66.0 % Sodium (135-145) mmol/L Potassium (3.3-5.1) mmol/L Chloride (96-108) mmol/L Carbon Dioxide (22-29) mmol/L Anion Gap (12-20) BUN (9-16) mg/dL Creatinine (0.5-1.4) mg/dL Estim Creat Clear Calc Estimated GFR Random Glucose (60-115) mg/dL Lactic Acid (0.5-2.0) mmol/L Calcium (8.4-10.2) mg/dL Total Bilirubin (0.0-1.0) mg/dL AST (5-37) U/L ALT (0-40) U/L Alkaline Phosphatase (39-117) U/L B-Natriuretic Peptide 119 H (<100) pg/mL Total Protein (6.5-8.0) g/dL Albumin (3.5-5.0) g/dL COVID-19 (DANNY) (Negative) COVID-19 Clin Com Influenza Type A (VERNON) (Negative) Influenza Type B (VERNON) (Negative) Influenza A & B Note Independent Interpretation I performed an independent interpretation of an: EKG Interpretation: Atrial fibrillation with RVR, HR-140, no STEMI, QRS is within normal limits, [id number] Radiology Impression Radiologist Impression: My interpretation is in agreement with radiology's impression of the imaging study. External Record Review External record reviewed: Inpatient record, Outpatient record and Prior outpatient labs Prescription Management I considered prescription management with: Pain Medication Chronic Conditions Patient?s care impacted by: Other Atrial fibrillation on chronic anticoagulation, history renal colic Medications Administered Discontinued Medications Generic Name Dose Route Start Last Admin Trade Name Freq PRN Reason Stop Dose Admin Fentanyl 25 mcg 07/07/22 14:27 07/07/22 14:50 Fentanyl Citrate/Pf 100 Mcg/2 Ml Vial IVPUSH 07/07/22 14:28 25 mcg ONCE ONE Administration Protocol Metoprolol Tartrate 5 mg 07/07/22 14:25 07/07/22 14:50 Metoprolol Tartrate 5 Mg/5 Ml Vial IVPUSH 07/07/22 14:26 5 mg ONCE ONE Administration Metoprolol Tartrate 5 mg 07/07/22 15:19 07/07/22 15:34 Metoprolol Tartrate 5 Mg/5 Ml Vial IVPUSH 07/07/22 15:20 5 mg ONCE ONE Administration Critical Care Time Critical Care Time Critical Care Time: Yes Total Critical Care Time: 75 Attestation: I personally attest to this time spent taking care of the patient. Discharge Plan Discharge Clinical Impression: Obstructed, uropathy, Acute on chronic renal failure, Atrial fibrillation with RVR, Influenza B Patient Disposition: Admitted As Inpatient Prescriptions: No Action pantoprazole 40 mg tablet,delayed release (DR/EC) 1 tab PO BID acetaminophen 500 mg Tablet 500 mg PO BID PRN (Reason: Pain) levothyroxine 88 mcg Tablet 132 mcg PO KAPLAN@0600 oxycodone 5 mg tablet 5 mg PO BEDTIME PRN (Reason: pain) amiodarone 200 mg tablet 200 mg PO DAILY Qty: 90 0RF Rx Instructions: to start after finishing the 400 mg bid dose. levothyroxine 88 mcg tablet 88 mcg PO MOTUWETHFRSA@0600 pravastatin 80 mg tablet 80 mg PO BEDTIME Eliquis 5 mg tablet 5 mg PO BID Hold Instructions: Resume on 03/05/21. torsemide 20 mg tablet 20 mg PO Q3D prednisone 10 mg tablet 0 mg PO amlodipine 2.5 mg tablet 2.5 mg PO DAILY pyridoxine (vitamin B6) 100 mg tablet 100 mg PO DAILY 90 Days Qty: 90 1RF
[2022-07-07 14:29] VITALS: BP 135/93; PULSE 139; RESP 12; TEMP 37; O2SAT 97; BMI 36.3
[2022-07-07 14:45] LABS: MANUAL DIFF FLAG NO
[2022-07-07 14:47] LABS: COVID-19 Test Negative (Negative); IDNOW Serial# 16C4AD1C; IDNOW Serial# BCCEAD1C; Influenza A Negative (Negative); Influenza B2 Positive (Negative)
[2022-07-07 14:50] LABS: Basophils Percent Auto 0.3 % (0-2); Eosinophils Absolute Auto 0.1 X10*3/uL (0.0-0.4); Eosinophils Percent Auto 0.8 % (0-4); Hematocrit 39.2 % (42.0-52.0); Hemoglobin 12.6 g/dl (14.0-18.0); Imm Gran Abs Auto 0.02 X10*3/uL (0.00-0.03); Imm Gran Pct Auto 0.2 % (0.0-0.4); Lymphocytes Absolute Auto 1.7 X10*3/uL (1.2-4.9); Lymphocytes Percent Auto 18.9 % (20-40); Mean Corpuscular HGB Conc 32.1 g/dl (31.0-36.0); Mean Corpuscular Hemoglobin 28.4 pg (27.0-33.0); Mean Corpuscular Volume 88.3 fL (80.0-98.0); Mean Platelet Volume 9.5 fL (9.4-12.4); Monocytes Absolute Auto 1.1 X10*3/uL (0.1-1.2); Monocytes Percent Auto 12.6 % (2-11); Neutrophils Percent Auto 67.2 % (45-73); Platelet Count 165 X10*3/uL (160-400); Red Blood Count 4.44 X10*6/uL (4.60-5.80); Red Cell Distribution Width 14.1 % (11.0-16.0); White Blood Count 8.9 X10*3/uL (4.8-10.8)
[2022-07-07] MEDS: Metoprolol Tartrate 5 MG/5 ML VIAL IVPUSH ×3 (14:50→20:23)
[2022-07-07] MEDS: fentaNYL citrate/PF 100 MCG/2 ML VIAL 25 MCG IVPUSH (14:50)
[2022-07-07 14:55] LABS: INTERNATIONAL NORM RATIO 1.1 (0.9-1.1); Prothrombin Time 12.9 SEC (10.0-13.1)
[2022-07-07 14:57] LABS: VBG pCO2 34 mmHg; VBG pH 7.46 (7.32-7.43); VBG pO2 43 mmHg
[2022-07-07 15:00] LABS: Venous Blood Gas Refer to POC result
[2022-07-07 15:12] VITALS: BP 120/80; PULSE 136; RESP 11; TEMP 36.6; O2SAT 94
[2022-07-07 15:15] LABS: Lactic Acid 0.8 mmol/L (0.5-2.0)
[2022-07-07 15:19] LABS: Alanine Aminotransferase 22 U/L (0-40); Albumin Level 3.4 g/dL (3.5-5.0); Alkaline Phosphatase 57 U/L (39-117); Anion Gap 14 (12-20); Aspartate Amino Transferase 19 U/L (5-37); Bilirubin Total 0.8 mg/dL (0.0-1.0); Blood Urea Nitrogen 29 mg/dL (9-16); Calcium 8.6 mg/dL (8.4-10.2); Carbon Dioxide 26 mmol/L (22-29); Chloride 107 mmol/L (96-108); Creatinine Clr Calc Pharmacy 30.5; Estimated Glomerular Filt Rate 25; Glucose Random 117 mg/dL (60-115); Potassium 4.5 mmol/L (3.3-5.1); Sodium 142 mmol/L (135-145); Total Protein 6.1 g/dL (6.5-8.0)
[2022-07-07 15:29] LABS: B Type Natriuretic Peptide 119 pg/mL (<100)
[2022-07-07 15:34] VITALS: BP 120/80; PULSE 136; RESP 12; O2SAT 95
[2022-07-07] MEDS: dilTIAZem HCL 50 MG/10 ML VIAL 10 MG IVPUSH (15:58)
--- NOTE | 2022-07-07 16:07 | PC.NURSE ---
IV established, labs drawn and sent. Medicated per the MAR
[2022-07-07] MEDS: dilTIAZem HCL 125 MG in 0.9 % Sodium Chloride 100 ML 10 MG IVCONT (16:40)
[2022-07-07 16:42] VITALS: BP 122/88; PULSE 136; RESP 12; O2SAT 96
--- NOTE | 2022-07-07 16:47 | PC.NURSE ---
Cardizem drip started 10 mls/hr.
[2022-07-07 16:49] LABS: Thyroid Stimulating Hormone 2.16 uIU/mL (0.32-4.0)
--- NOTE | 2022-07-07 16:51 | P.HPHOSP_ITS ---
History of Present Illness Date of Service: 07/07/22 Attending physician on admission: Gilles Barnard Chief Complaint: abd pain,tachycardia 82-year-old male with atrial fibrillation?with rvr on ch AC , nephrolithasis ,htn ,hlp,hx of chf (etiology unclear): Patient admitted to the hospital because of left flank pain, also has tachycardia. Patient says that he is having symptom of hematuria started 2 weeks back with pain-than hematuria improved but patient still has pain with urination-he went to his PCP and who recommended to come to the ED, he is off Eliquis -as per the patient because he was told going to get urological procedure. Patient still is complaining of lot of flank pain, does not feel nauseated or vomiting or any headache . Denies any rhinorrhea or otorrhea or any sore throat or fever or chills or any sick contacts. Denies any chest pain or shortness of breath or palpitations. In ED: WBC count is 8.9, hemoglobin is 12.6, hematocrit 39.2, platelet 165. BMP: BUN is 29 creatinine 2.5 His baseline creatinine is also around 1.6-2 range at least UA shows microscopic hematuria CT abdomen: CT/CT abdomen pelvis wo IV con IMPRESSION: 1.? Cluster of 3 left proximal ureteral stones measuring 0.9, 0.5, and 0.6 cm in size with moderate left hydroureteronephrosis and left perinephric stranding. 2.? Additional small nonobstructing left renal calculi, as described. patient is influeza B positive Review of Systems Review of Systems: As above. [facility] Medical History Atrial fibrillation BPH loc w urin obs/LUTS Chest pain Chronic renal disease, stage 3, moderately decreased glomerular filtration rate (GFR) between 30-59 mL/min/1.73 square meter COVID-19 vaccine series completed Elevated PSA Facet arthropathy, cervical GERD (gastroesophageal reflux disease) Heart failure HTN (hypertension) Hyperlipidemia On anticoagulant therapy Renal stones Sleep apnea Symptomatic cholelithiasis Thyroid disease Pertinent family history: says family members also has hx of nephrolithiasis. Surgical History H/O colonoscopy History of surgery History of total replacement of both hip joints Hx of arthroscopic knee surgery Hx of cataract extraction Hx of cystoscopy S/P laparoscopic cholecystectomy Social History Household Members: Spouse Housing: House Are you a primary child care leader to a significant other at home: No Do you presently have visiting nurse or other home services: No Alcohol intake: never Patient Tobacco Use Status: Never used Tobacco Advance Directives: Yes Advance Directives on File: No service: No Current occupational status: retired Meds Allergies Allergy/AdvReac Type Severity Reaction Status Date / Time ibuprofen [IBUPROFEN] Allergy Intermediate HIVES Verified 02/15/22 11:14 hydromorphone [From DILAUDID] AdvReac Intermediate ILEUS Verified 02/15/22 11:14 procaine [From Novocain] AdvReac Intermediate has no Verified 02/15/22 11:14 numbing effect-states monocain works narcotic pain meds AdvReac Intermediate does not Uncoded 02/15/22 11:14 relieve pain per patient Active Medications: Current Medications Docusate Sodium (Docusate Sodium 100 Mg Capsule) 100 mg PO BID PRN PRN Reason: Constipation Diltiazem HCl 125 mg/ Sodium (Chloride) 125 mls @ 0 mls/hr IVCONT .Q0M [facility]; Protocol Last Admin: 07/07/22 16:40 Dose: 10 mg/hr, 10 mls/hr Morphine Sulfate (Morphine Sulfate 2 Mg/Ml Cartridge) 1 mg IVPUSH Q4H [facility]; Protocol Pharmacy Consult (Consult Rx Perform Med Rec) 1 each MISCELLANE ONCE PRN PRN Reason: Consult order Polyethylene Glycol (Polyethylene Glycol 3350 17 Gm Powd.Pack) 17 gm PO DAILY [facility] Sodium Chloride (0.9 % Sodium Chloride Flush 3 Ml Syringe) 3 ml IVFLUSH QSHIFT [facility] Home Medications Medication Instructions Recorded Confirmed Last Taken Type levothyroxine 88 mcg tablet 88 mcg PO MOTUWETHFRSA@0600 11/12/20 09/08/21 09/13/21 06:30 History apixaban 5 mg tablet (Eliquis) 5 mg PO BID 02/09/21 09/13/21 09/09/21 History pravastatin 80 mg tablet 80 mg PO BEDTIME 02/09/21 09/08/21 08/02/21 History torsemide 20 mg tablet 20 mg PO Q3D 02/09/21 09/08/21 08/02/21 History acetaminophen 500 mg tablet 500 mg PO BID PRN Pain 08/03/21 09/08/21 08/03/21 History levothyroxine 88 mcg tablet 132 mcg PO KAPLAN@0600 08/03/21 09/08/21 08/01/21 History pantoprazole 40 mg tablet,delayed 1 tab PO BID 09/08/21 09/08/21 Unknown History release amlodipine 2.5 mg tablet 2.5 mg PO DAILY 02/15/22 Unknown History cefuroxime axetil 500 mg tablet 1 tab PO BID 07/07/22 Unknown History oxycodone 5 mg tablet 1 tab PO QID PRN pain 07/07/22 Unknown History prednisone 20 mg tablet 1 tab PO DAILY PRN pain 07/07/22 Unknown History Physical Exam Vital Signs and Narrative: Vital Signs: Last Vital Signs Temp 97.9 F 07/07/22 15:12 Pulse 136 H 07/07/22 16:42 Resp 12 07/07/22 16:42 BP 122/88 07/07/22 16:42 Pulse Ox 96 07/07/22 16:42 O2 Del Method 07/07/22 16:42 BMI result Body Mass Index 36.3 Appearance: Alert.? Oriented X3.? inpain? Eyes: Pupils equal, round and reactive to light.? Sclera nonicteric.? ENT: Pharynx normal.? Moist mucous membranes. cvs: rrr, [id number] , no murmur res: clear to auscultation ,no rhonchii or wheezing abd: no rebound or guarding ,left flank pain, bs present. ext pulses present , no cyanosis . neuro: axo3 , nonfocal. Results Labs CBC and Chem 7: 07/07/22 14:40 07/07/22 14:40 Labs: Laboratory Results - last 24 hr 07/07/22 07/07/22 07/07/22 14:27 14:27 14:40 MCV 88.3 MCH 28.4 MCHC 32.1 RDW 14.1 Plt Count 165 MPV 9.5 Immature Gran % (Auto) 0.2 Neut % (Auto) 67.2 Lymph % (Auto) 18.9 L [place] % (Auto) 12.6 H Eos % (Auto) 0.8 Baso % (Auto) 0.3 Lymph # (Auto) 1.7 [place] # (Auto) 1.1 Eos # (Auto) 0.1 Baso # (Auto) 0.0 Abs Immat Gran (auto) 0.02 Absolute Neuts (auto) 6.0 Absolute Nucleated RBC 0.000 Nucleated RBC % (auto) 0.0 PT INR VBG pH VBG pCO2 VBG pO2 VBG O2 Saturation Anion Gap Estim Creat Clear Calc Estimated GFR Random Glucose Lactic Acid Calcium Total Bilirubin AST ALT Alkaline Phosphatase Troponin I High Sens B-Natriuretic Peptide Total Protein Albumin TSH COVID-19 (DANNY) Negative COVID-19 Clin Com See Note Influenza Type A (VERNON) Negative Influenza Type B (VERNON) Positive A Influenza A & B Note See Note 07/07/22 07/07/22 07/07/22 14:40 14:40 14:40 MCV MCH MCHC RDW Plt Count MPV Immature Gran % (Auto) Neut % (Auto) Lymph % (Auto) [place] % (Auto) Eos % (Auto) Baso % (Auto) Lymph # (Auto) [place] # (Auto) Eos # (Auto) Baso # (Auto) Abs Immat Gran (auto) Absolute Neuts (auto) Absolute Nucleated RBC Nucleated RBC % (auto) PT 12.9 INR 1.1 VBG pH VBG pCO2 VBG pO2 VBG O2 Saturation Anion Gap 14 Estim Creat Clear Calc 30.5 Estimated GFR 25 Random Glucose 117 H Lactic Acid 0.8 Calcium 8.6 Total Bilirubin 0.8 AST 19 ALT 22 Alkaline Phosphatase 57 Troponin I High Sens B-Natriuretic Peptide Total Protein 6.1 L Albumin 3.4 L TSH 2.16 COVID-19 (DANNY) COVID-19 Clin Com Influenza Type A (VERNON) Influenza Type B (VERNON) Influenza A & B Note 07/07/22 07/07/22 07/07/22 14:40 14:40 14:50 MCV MCH MCHC RDW Plt Count MPV Immature Gran % (Auto) Neut % (Auto) Lymph % (Auto) [place] % (Auto) Eos % (Auto) Baso % (Auto) Lymph # (Auto) [place] # (Auto) Eos # (Auto) Baso # (Auto) Abs Immat Gran (auto) Absolute Neuts (auto) Absolute Nucleated RBC Nucleated RBC % (auto) PT INR VBG pH 7.46 H VBG pCO2 34 VBG pO2 43 VBG O2 Saturation 66.0 Anion Gap Estim Creat Clear Calc Estimated GFR Random Glucose Lactic Acid Calcium Total Bilirubin AST ALT Alkaline Phosphatase Troponin I High Sens 20.0 B-Natriuretic Peptide 119 H Total Protein Albumin TSH COVID-19 (DANNY) COVID-19 Clin Com Influenza Type A (VERNON) Influenza Type B (VERNON) Influenza A & B Note ABG Attestation: I personally reviewed and interpreted this ABG as follows: (arterial flutter) Imaging Radiologist's Impressions: Impressions Abdomen/Pelvis CT 07/07/22 14:50 IMPRESSION: 1. Cluster of 3 left proximal ureteral stones measuring 0.9, 0.5, and 0.6 cm in size with moderate left hydroureteronephrosis and left perinephric stranding. 2. Additional small nonobstructing left renal calculi, as described. Assessment and Plan (1) Obstructed, uropathy: Status: Acute (2) Acute on chronic renal failure: Status: Acute (3) Atrial fibrillation with RVR: Status: Acute (4) Influenza B: Status: Acute (5) HTN (hypertension): Status: Acute (6) Sleep apnea: Status: Acute (7) Morbid obesity: Status: Acute Plan 81-year-old male with past medical history of AFib status post ablation, hyper tension, CKD, who presents the hospital in AFib with RVR prabhu on ckd( at least ckd3) due to possible uropathy: hematuria sec to renal stones encouraged for po hydration,added flomax. pain control with mornphine urology eval( as per ed d/w urology -plan for OR in am). # Aflutter with RVR(possible pain component also contributing) Rate controlled, rhythm still in AFib Continue diltiazem drip hold anticoagulation keep NPO past midnight ed d/w cardio about above. # history of CHF ?No evidence of exacerbation hold diurtics due to prabhu and euvolemic ,will avoid fluids since has chf hx ,hold diuretics. # hypothyroidism continue levothyroxine # GERD ?Continue omeprazole Sleep apnea: cotninue cpap. Influenza B: seems asymptomatic ?unclear how long positive denies any sick contacts will defer adding tamiflu Morbid obesity: Encouraged to lose weight. [facility] Considering patient has obstructive uropathy, PRABHU, a flutter-need IV pain management as well as IV pain medications to control heart rate, renal function, electrolyte monitoring, Patient may benefit from 2 midnight stay Time Spent With Patient Time: Total time managing care of this patient today ____ minutes. Quality Stroke Does the patient have a stroke diagnosis?: No VTE Prior VTE?: No VTE Risk Level:: Medical - moderate - high VTE Device Contraindication: N/A - Device Ordered VTE Drug Contraindication: N/A - Med Ordered
[2022-07-07 17:17] VITALS: BP 134/92; PULSE 136; RESP 22; TEMP 37.2; O2SAT 96
[2022-07-07] MEDS: Morphine Sulfate 2 MG/ML CARTRIDGE 1 MG IVPUSH (18:26)
--- NOTE | 2022-07-07 19:29 | PC.NURSE ---
Pt. currently resting in bed, watching tv. Pt. is on diltiazem drip running at 15mg/hr, 15ml/hr. Pt. hr currently at 136 and has been continuous since assuming care of pt. at 1900. Previous reports state that hr has continued to be elevated despite titration of diltiazem. Pt. remains on a cardiac diet, until midnight when he is to be NPO pending possible intervention by urology for kidney stones. Pt. is flu B positive, however, denies any SS. Pt. in no apparent distress at this time. Will continue to monitor.
[2022-07-07] MEDS: Morphine Sulfate 4 MG/ML CARTRIDGE IVPUSH (20:23)
[2022-07-07] MEDS: Pyridoxine HCl (Vitamin B6) 50 MG TABLET 100 MG PO (21:20)
[2022-07-07] MEDS: Pravastatin Sodium 80 MG TABLET PO (21:20)
[2022-07-07] MEDS: Tamsulosin HCL 0.4 MG CAPSULE PO (21:20)
--- NOTE | 2022-07-07 22:19 | PM.EVENT ---
Event Note Date of Service: 07/07/22 Event Note: pt tachycardic with HR in the 130-150s, received 5 of IV lopressor push. on max cardizem drip. otherwise stable. BP became soft after receiving lopressor IVP. will order one time dose of digoxin as HR remains in the 130s. Time Spent With Patient Time: Total time managing care of this patient today ____ minutes.
[2022-07-07 23:01] LABS: Lactic Acid 0.9 mmol/L (0.5-2.0)
[2022-07-07] MEDS: Digoxin 0.5 MG/2 ML AMPUL 0.25 MG IVPUSH (23:14)
--- NOTE | 2022-07-07 23:40 | PC.NURSE ---
Pt. HR continued to remain elevated, after dose of lopressore hr sitting steady at 131 only down about [address] Hassan. Digoxin ordered and given. Pt. moved up to [facility]. Report given to floor RN. Pt. not given 2100 dose of morphine as BP decreased with the last dose of morphine and lopressor. pain was controlled with previous dose of morphine. Next dose will be due at 1am if needed.
[2022-07-08] VITALS (15 sets, daily range): BP systolic 101–142; BP diastolic 62–86; PULSE 90–135; RESP 8–20; TEMP 36.1–36.8; O2SAT 92–96; BMI 38.8
[2022-07-08] MEDS: Morphine Sulfate 2 MG/ML CARTRIDGE 1 MG IVPUSH ×7 (00:42→21:11)
[2022-07-08] MEDS: dilTIAZem HCL 125 MG in 0.9 % Sodium Chloride 100 ML 10 MG IVCONT (00:44)
--- NOTE | 2022-07-08 07:13 | PHA.MEDREC ---
Pharmacy Consult ? Medication Reconciliation Pharmacy has completed the medication reconciliation.
--- NOTE | 2022-07-08 08:43 | P.CNUR_ITS ---
History of Present Illness Consult details Consult date: 07/08/22 Narrative: 82-year-old male PMH-- atrial fibrillation, nephrolithasis ,htn ,hlp,hx of chf (etiology unclear):? Patient admitted to the hospital because of left flank pain, also has tachycardia. He stated he that he is having symptoms of hematuria started 2 weeks and back pain-than hematuria improved but patient still has pain with urination-he went to his PCP and who recommended to come to the ED, he is current off Eliquis. Patient does not feel nauseated or vomiting or any headache. Denies any rhinorrhea or otorrhea or any sore throat or fever or chills or any sick contacts. Denies any chest pain or shortness of breath or palpitations. Labs: BUN is 29 creatinine 2.5, His baseline creatinine is also around 1.6-2 range --WBC count is 8.9. Imaging pertinent findings: CT/CT abdomen pelvis wo IV con Cluster of 3 left proximal ureteral stones measuring 0.9, 0.5, and 0.6 cm in size with moderate left hydroureteronephrosis and left perinephric stranding.? Additional small nonobstructing left renal calculi Review of Systems Review of Systems: 10 point ROS negative other than stated [facility] Past Medical History Medical History Atrial fibrillation BPH loc w urin obs/LUTS Chest pain Chronic renal disease, stage 3, moderately decreased glomerular filtration rate (GFR) between 30-59 mL/min/1.73 square meter COVID-19 vaccine series completed Elevated PSA Facet arthropathy, cervical GERD (gastroesophageal reflux disease) Heart failure HTN (hypertension) Hyperlipidemia On anticoagulant therapy Renal stones Sleep apnea Symptomatic cholelithiasis Thyroid disease Surgical History Surgical History H/O colonoscopy History of surgery History of total replacement of both hip joints Hx of arthroscopic knee surgery Hx of cataract extraction Hx of cystoscopy S/P laparoscopic cholecystectomy Social History Social History Household Members: Spouse Housing: House Are you a primary health care / medical job titles to a significant other at home: No Do you presently have visiting nurse or other home services: No Alcohol intake: never Patient Tobacco Use Status: Never used Tobacco Advance Directives Date on File: 07/08/22 service: No Current occupational status: retired Meds Allergies Allergy/AdvReac Type Severity Reaction Status Date / Time ibuprofen [IBUPROFEN] Allergy Intermediate HIVES Verified 02/15/22 11:14 hydromorphone [From DILAUDID] AdvReac Intermediate ILEUS Verified 02/15/22 11:14 procaine [From Novocain] AdvReac Intermediate has no Verified 02/15/22 11:14 numbing effect-states monocain works narcotic pain meds AdvReac Intermediate does not Uncoded 02/15/22 11:14 relieve pain per patient Active Medications: Current Medications Amiodarone HCl (Amiodarone Hcl 200 Mg Tablet) 100 mg PO Q2D [facility] Docusate Sodium (Docusate Sodium 100 Mg Capsule) 100 mg PO BID PRN PRN Reason: Constipation Diltiazem HCl 125 mg/ Sodium (Chloride) 125 mls @ 0 mls/hr IVCONT .Q0M [facility]; Protocol Last Titration: 07/08/22 00:50 Dose: 15 mg/hr, 15 mls/hr Levothyroxine Sodium (Levothyroxine Sodium 88 Mcg Tablet) 88 mcg PO DAILY [facility] Morphine Sulfate (Morphine Sulfate 2 Mg/Ml Cartridge) 1 mg IVPUSH Q4H [facility]; Protocol Last Admin: 07/08/22 05:39 Dose: 1 mg Omeprazole (Omeprazole 20 Mg Capsule.Dr) 20 mg PO DAILY [facility] Pharmacy Consult (Consult Rx Perform Med Rec) 1 each MISCELLANE ONCE PRN PRN Reason: Consult order Polyethylene Glycol (Polyethylene Glycol 3350 17 Gm Powd.Pack) 17 gm PO DAILY [facility] Last Admin: 07/08/22 08:34 Dose: Not Given Pravastatin Sodium (Pravastatin Sodium 80 Mg Tablet) 80 mg PO BEDTIME [facility] Last Admin: 07/07/22 21:20 Dose: 80 mg Pyridoxine HCl (Pyridoxine Hcl (Vitamin B6) 50 Mg Tablet) 100 mg PO BEDTIME [facility] Last Admin: 07/07/22 21:20 Dose: 100 mg Sodium Chloride (0.9 % Sodium Chloride Flush 3 Ml Syringe) 3 ml IVFLUSH QSHIFT [facility] Last Admin: 07/08/22 00:44 Dose: Not Given Tamsulosin HCl (Tamsulosin Hcl 0.4 Mg Capsule) 0.4 mg PO BEDTIME [facility] Last Admin: 07/07/22 21:20 Dose: 0.4 mg Home Medications Medication Instructions Recorded Confirmed Last Taken Type levothyroxine 88 mcg tablet 88 mcg PO DAILY 11/12/20 07/07/22 07/07/22 History apixaban 5 mg tablet (Eliquis) 5 mg PO BID 02/09/21 07/07/22 07/03/22 History pravastatin 80 mg tablet 80 mg PO BEDTIME 02/09/21 07/07/22 07/06/22 History torsemide 20 mg tablet 20 mg PO Q5D PRN Edema 02/09/21 07/07/22 08/02/21 History pantoprazole 40 mg tablet,delayed 1 tab PO DAILY 09/08/21 07/07/22 07/07/22 History release amlodipine 2.5 mg tablet 2.5 mg PO DAILY 02/15/22 07/07/22 07/07/22 History amiodarone 200 mg tablet 100 mg PO Q2D 07/07/22 07/07/22 07/07/22 History Physical Exam Vital Signs: Vital Signs: Last Vital Signs Temp 97.3 F 07/08/22 07:45 Pulse 118 H 07/08/22 07:45 Resp 20 07/08/22 07:45 BP 101/70 07/08/22 07:45 Pulse Ox 96 07/08/22 07:45 O2 Del Method 07/08/22 07:45 BMI result Body Mass Index 38.8 Const: General: no acute distress and well developed Orientation/con sciousness: patient oriented x3 HEENT: Head: Yes normocephalic and Yes atraumatic Eyes: Conjunctivae: conjunctivae normal Neck: Neck: Yes normal visual inspection Chest: Chest palpation & inspection: normal inspection of the chest Resp: Effort & Inspection: normal respiratory effort Cardio: Jugular venous distension: no JVD GI: Inspection: Yes normal to inspection Palpation (GI): Soft to palpation : General: Yes CVA tenderness (left) Back/Spine/Pelvis: Back: CVA tenderness (left) Skin: General skin exam: no rashes or lesions noted Neuro: General: patient oriented x3 Psych: Appearance: grossly normal Affect: normal affect Results Labs Result diagrams: 07/07/22 14:40 07/08/22 08:57 Labs: Abnormal lab results 07/07/22 07/07/22 07/07/22 Range/Units 14:27 14:40 14:40 RBC 4.44 L (4.60-5.80) X10*6/uL Hgb 12.6 L (14.0-18.0) g/dl Hct 39.2 L (42.0-52.0) % Lymph % (Auto) 18.9 L (20-40) % Mcculloch % (Auto) 12.6 H (2-11) % VBG pH (7.32-7.43) BUN 29 H (9-16) mg/dL Creatinine 2.51 H (0.5-1.4) mg/dL Random Glucose 117 H (60-115) mg/dL B-Natriuretic Peptide (<100) pg/mL Total Protein 6.1 L (6.5-8.0) g/dL Albumin 3.4 L (3.5-5.0) g/dL Influenza Type B ([facility]) Positive A (Negative) 07/07/22 07/07/22 Range/Units 14:40 14:50 RBC (4.60-5.80) X10*6/uL Hgb (14.0-18.0) g/dl Hct (42.0-52.0) % Lymph % (Auto) (20-40) % Mcculloch % (Auto) (2-11) % VBG pH 7.46 H (7.32-7.43) BUN (9-16) mg/dL Creatinine (0.5-1.4) mg/dL Random Glucose (60-115) mg/dL B-Natriuretic Peptide 119 H (<100) pg/mL Total Protein (6.5-8.0) g/dL Albumin (3.5-5.0) g/dL Influenza Type B ([facility]) (Negative) Short CBC 07/07/22 Range/Units 14:40 WBC 8.9 (4.8-10.8) X10*3/uL Hgb 12.6 L (14.0-18.0) g/dl Hct 39.2 L (42.0-52.0) % Plt Count 165 (160-400) X10*3/uL BMP 07/07/22 14:40 Sodium 142 Potassium 4.5 Chloride 107 Carbon Dioxide 26 BUN 29 H Creatinine 2.51 H Calcium 8.6 Liver Function 07/07/22 Range/Units 14:40 Total Bilirubin 0.8 (0.0-1.0) mg/dL AST 19 (5-37) U/L ALT 22 (0-40) U/L Alkaline Phosphatase 57 (39-117) U/L Albumin 3.4 L (3.5-5.0) g/dL Imaging Abdomen CT scan report/results: report reviewed and image reviewed CT scan - pelvis: report reviewed and image reviewed Additional studies: Date of Service: 07/07/22 EXAMINATION: CT ABDOMEN AND PELVIS WITHOUT CONTRAST? CLINICAL INFORMATION: Flank pain, history of renal stones? COMPARISON: CT abdomen and pelvis 10/09/2020? FINDINGS: LUNG BASES: The visualized lung bases are unremarkable.? LIVER, GALLBLADDER, AND BILIARY TREE: The liver is normal in size, shape, and attenuation. No focal hepatic lesion or biliary ductal dilatation is present. Status post cholecystectomy.? PANCREAS: Unremarkable.? SPLEEN: Unremarkable.? ADRENAL GLANDS: Unremarkable.? KIDNEYS AND URETERS: Cluster of 3 left proximal ureteral stones, measuring 0.9, 0.5, and 0.6 cm in size with moderate left hydroureteronephrosis and left-sided perinephric stranding. Small 0.4 cm nonobstructing calculus in the dependent left renal pelvis and punctate nonobstructing left lower pole calculus. No right renal calculi. No right hydronephrosis. No renal lesion seen.? BLADDER: Grossly unremarkable allowing for streak artifact from total hip replacements.? GASTROINTESTINAL TRACT: Colonic diverticulosis most extensively involving the sigmoid. No evidence of acute diverticulitis. No dilated bowel loops or bowel wall thickening. Normal appendix. No free air or ascites.? ABDOMINAL WALL: No significant hernia is appreciated.? LYMPH NODES: No lymphadenopathy. VASCULAR: Tortuous normal caliber abdominal aorta. Mild vascular calcifications. PELVIC VISCERA: Grossly unremarkable, but assessment is limited due to streak artifact.? OSSEOUS STRUCTURES: No acute fracture or suspicious osseous lesion. Vertebral body hemangioma at L3 redemonstrated. Advanced multilevel spondylosis in the lumbar spine with mild multilevel degenerative retrolisthesis and multilevel bilateral facet arthrosis.? IMPRESSION: 1.? Cluster of 3 left proximal ureteral stones measuring 0.9, 0.5, and 0.6 cm in size with moderate left hydroureteronephrosis and left perinephric stranding. 2.? Additional small nonobstructing left renal calculi, as described. ? Assessment and Plan (1) Obstructed, uropathy: Status: Acute (2) Acute on chronic renal failure: Status: Acute (3) Ureteral stone with hydronephrosis: Status: Acute (4) Renal stone: Status: Acute Plan Plan for Cystoscopy, Left ureteral stent, retrograde, possible ureteroscopy, laser. Risks discussed included but not limited to, Irritative voiding symptoms, bladder spasms, urgency, blood in urine. Time Spent With Patient Time: Total time managing care of this patient today ____ minutes. Procedures Date of Service Date of Service: 07/08/22
[2022-07-08] MEDS: Omeprazole 20 MG CAPSULE.DR PO (08:55)
[2022-07-08] MEDS: Levothyroxine Sodium 88 MCG TABLET PO (08:56)
[2022-07-08] MEDS: 0.9 % Sodium Chloride Flush 3 ML SYRINGE IVFLUSH ×2 (08:57→18:37)
--- NOTE | 2022-07-08 09:17 | MHC.CM.PN ---
IMM DELIVERED PT LIVES WITH SPOUSE IN A [facility]. USES CANE AT TIMES FOR MOBILITY, C-PAP AT NIGHT. VENDOR IS [employer]. +HCP, COPY REQUESTED. + COVID VAX X4 PCP DR. GURROLA DP: HOME , NO SERVICES ANTICIPATED. SPOUSE WILL TRANSPORT AT [place]. CM WILL CONTINUE TO FOLLOW FOR CHANGE IN PLAN
[2022-07-08 09:41] LABS: Anion Gap 11 (12-20); Blood Urea Nitrogen 30 mg/dL (9-16); Calcium 8.5 mg/dL (8.4-10.2); Carbon Dioxide 27 mmol/L (22-29); Chloride 106 mmol/L (96-108); Creatinine Clr Calc Pharmacy 29.9; Estimated Glomerular Filt Rate 23; Glucose Random 118 mg/dL (60-115); Potassium 4.3 mmol/L (3.3-5.1); Sodium 140 mmol/L (135-145)
[2022-07-08] MEDS: dilTIAZem HCL 125 MG in 0.9 % Sodium Chloride 100 ML 15 MG IVCONT ×2 (10:27→18:38)
--- NOTE | 2022-07-08 12:36 | HO.PM.IMPN ---
Subjective Subjective Date of Service: 07/08/22 Interval History: afib with rvr , nephrolithasis with flank pain. Review of Systems left flank pain No fever or nausea or vomiting, denies any palpitations or chest pain or shortness of breath. Physical Exam Vital Signs: Vital Signs: Last Vital Signs Temp 98.0 F 07/08/22 12:00 Pulse 135 H 07/08/22 12:00 Resp 20 07/08/22 12:00 BP 117/86 07/08/22 12:00 Pulse Ox 94 07/08/22 12:00 O2 Del Method 07/08/22 12:00 BMI result Body Mass Index 38.8 Appearance: Alert.? Oriented X3.? in pain. cvs: rrr, [id number] , no murmur res: clear to auscultation ,no rhonchii or wheezing abd: no rebound or guarding ,left flank pain, bs present. ext pulses present , no cyanosis . neuro: axo3 , nonfocal. Objective Data Active Medications Amiodarone HCl (Amiodarone Hcl 200 Mg Tablet) 100 mg PO Q2D [facility] Docusate Sodium (Docusate Sodium 100 Mg Capsule) 100 mg PO BID PRN PRN Reason: Constipation Diltiazem HCl 125 mg/ Sodium (Chloride) 125 mls @ 0 mls/hr IVCONT .Q0M [facility]; Protocol Last Admin: 07/08/22 10:27 Dose: 15 mg/hr, 15 mls/hr Documented By: DANIELA Levothyroxine Sodium (Levothyroxine Sodium 88 Mcg Tablet) 88 mcg PO DAILY [facility] Last Admin: 07/08/22 08:56 Dose: 88 mcg Documented By: DANIELA Morphine Sulfate (Morphine Sulfate 2 Mg/Ml Cartridge) 1 mg IVPUSH Q4H [facility]; Protocol Last Admin: 07/08/22 08:56 Dose: 1 mg Documented By: DANIELA Omeprazole (Omeprazole 20 Mg Capsule.) 20 mg PO DAILY [facility] Last Admin: 07/08/22 08:55 Dose: 20 mg Documented By: DANIELA Pharmacy Consult (Consult Rx Perform Med Rec) 1 each MISCELLANE ONCE PRN PRN Reason: Consult order Polyethylene Glycol (Polyethylene Glycol 3350 17 Gm Powd.Pack) 17 gm PO DAILY [facility] Last Admin: 07/08/22 08:34 Dose: Not Given Documented By: DANIELA Non-Admin Reason: Patient Refused Pravastatin Sodium (Pravastatin Sodium 80 Mg Tablet) 80 mg PO BEDTIME [facility] Last Admin: 07/07/22 21:20 Dose: 80 mg Documented By: DEEPA Pyridoxine HCl (Pyridoxine Hcl (Vitamin B6) 50 Mg Tablet) 100 mg PO BEDTIME [facility] Last Admin: 07/07/22 21:20 Dose: 100 mg Documented By: DEEPA Sodium Chloride (0.9 % Sodium Chloride Flush 3 Ml Syringe) 3 ml IVFLUSH QSHIFT [facility] Last Admin: 07/08/22 08:57 Dose: 3 ml Documented By: DAINELA Tamsulosin HCl (Tamsulosin Hcl 0.4 Mg Capsule) 0.4 mg PO BEDTIME [facility] Last Admin: 07/07/22 21:20 Dose: 0.4 mg Documented By: DEEPA Labs CBC & Chem 7: 07/07/22 14:40 07/08/22 08:57 Labs: Laboratory Results - last 24 hr 07/07/22 07/07/22 07/07/22 14:27 14:27 14:40 MCV 88.3 MCH 28.4 MCHC 32.1 RDW 14.1 Plt Count 165 MPV 9.5 Immature Gran % (Auto) 0.2 Neut % (Auto) 67.2 Lymph % (Auto) 18.9 L Richardson % (Auto) 12.6 H Eos % (Auto) 0.8 Baso % (Auto) 0.3 Lymph # (Auto) 1.7 Richardson # (Auto) 1.1 Eos # (Auto) 0.1 Baso # (Auto) 0.0 Abs Immat Gran (auto) 0.02 Absolute Neuts (auto) 6.0 Absolute Nucleated RBC 0.000 Nucleated RBC % (auto) 0.0 PT INR VBG pH VBG pCO2 VBG pO2 VBG O2 Saturation Anion Gap Estim Creat Clear Calc Estimated GFR Random Glucose Lactic Acid Calcium Total Bilirubin AST ALT Alkaline Phosphatase Troponin I High Sens B-Natriuretic Peptide Total Protein Albumin TSH COVID-19 (DANNY) Negative COVID-19 Clin Com See Note Influenza Type A ([facility]) Negative Influenza Type B ([facility]) Positive A Influenza A & B Note See Note 07/07/22 07/07/22 07/07/22 14:40 14:40 14:40 MCV MCH MCHC RDW Plt Count MPV Immature Gran % (Auto) Neut % (Auto) Lymph % (Auto) Richardson % (Auto) Eos % (Auto) Baso % (Auto) Lymph # (Auto) Richardson # (Auto) Eos # (Auto) Baso # (Auto) Abs Immat Gran (auto) Absolute Neuts (auto) Absolute Nucleated RBC Nucleated RBC % (auto) PT 12.9 INR 1.1 VBG pH VBG pCO2 VBG pO2 VBG O2 Saturation Anion Gap 14 Estim Creat Clear Calc 30.5 Estimated GFR 25 Random Glucose 117 H Lactic Acid 0.8 Calcium 8.6 Total Bilirubin 0.8 AST 19 ALT 22 Alkaline Phosphatase 57 Troponin I High Sens B-Natriuretic Peptide Total Protein 6.1 L Albumin 3.4 L TSH 2.16 COVID-19 (DANNY) COVID-19 Clin Com Influenza Type A ([facility]) Influenza Type B ([facility]) Influenza A & B Note 07/07/22 07/07/22 07/07/22 14:40 14:40 14:50 MCV MCH MCHC RDW Plt Count MPV Immature Gran % (Auto) Neut % (Auto) Lymph % (Auto) Richardson % (Auto) Eos % (Auto) Baso % (Auto) Lymph # (Auto) Richardson # (Auto) Eos # (Auto) Baso # (Auto) Abs Immat Gran (auto) Absolute Neuts (auto) Absolute Nucleated RBC Nucleated RBC % (auto) PT INR VBG pH 7.46 H VBG pCO2 34 VBG pO2 43 VBG O2 Saturation 66.0 Anion Gap Estim Creat Clear Calc Estimated GFR Random Glucose Lactic Acid Calcium Total Bilirubin AST ALT Alkaline Phosphatase Troponin I High Sens 20.0 B-Natriuretic Peptide 119 H Total Protein Albumin TSH COVID-19 (DANNY) COVID-19 Clin Com Influenza Type A ([facility]) Influenza Type B ([facility]) Influenza A & B Note 07/07/22 07/08/22 22:39 08:57 MCV MCH MCHC RDW Plt Count MPV Immature Gran % (Auto) Neut % (Auto) Lymph % (Auto) Richardson % (Auto) Eos % (Auto) Baso % (Auto) Lymph # (Auto) Richardson # (Auto) Eos # (Auto) Baso # (Auto) Abs Immat Gran (auto) Absolute Neuts (auto) Absolute Nucleated RBC Nucleated RBC % (auto) PT INR VBG pH VBG pCO2 VBG pO2 VBG O2 Saturation Anion Gap 11 L Estim Creat Clear Calc 29.9 Estimated GFR 23 Random Glucose 118 H Lactic Acid 0.9 Calcium 8.5 Total Bilirubin AST ALT Alkaline Phosphatase Troponin I High Sens B-Natriuretic Peptide Total Protein Albumin TSH COVID-19 (DANNY) COVID-19 Clin Com Influenza Type A ([facility]) Influenza Type B ([facility]) Influenza A & B Note Assessment and Plan (1) Atrial fibrillation with rapid ventricular response: Status: Resolved (2) Ureteral stone with hydronephrosis: Status: Acute (3) Atrial fibrillation with RVR: Status: Acute (4) PRABHU (acute kidney injury): Status: Acute (5) CKD (chronic kidney disease): Status: Acute Plan 81-year-old male with past medical history of AFib status post ablation, hypertension, CKD, who presents the hospital in AFib with RVR prabhu on ckd( at least ckd3) due to possible uropathy: cr slightly worsen from yesterday hematuria sec to renal stones encouraged for po hydration, flomax. pain control with morphine urology eval( as per ed d/w urology -plan for urology stent). # Aflutter? with RVR(possible pain component also contributing) Rate controlled, rhythm still in AFib Continue diltiazem drip hold? anticoagulation keep NPO past midnight d/w cardio about above. # history of CHF ?No evidence of exacerbation hold diurtics due to prabhu and euvolemic ,will avoid fluids since has chf hx ,hold diuretics. # hypothyroidism continue levothyroxine # GERD ?Continue omeprazole Sleep apnea: cotninue cpap. Influenza B: seems asymptomatic ?unclear how long positive will check with patient if wants to try tamiflu Morbid obesity:? Encouraged to lose weight. DVT prophylaxis:? [facility] devices ongoing hospitilisation need:afib with rvr -need iv cardizem,nephrolithasis -need urology procedure for ureteral stent, also renal function and electrolyte moniterin Time Spent With Patient Time: Total time managing care of this patient today ____ minutes. Quality Stroke Does the patient have a stroke diagnosis?: No VTE Prior VTE?: No VTE Risk Level:: Medical - moderate - high VTE Device Contraindication: N/A - Device Ordered VTE Drug Contraindication: N/A - Med Ordered
--- NOTE | 2022-07-08 13:16 | P.CONCA_ITS ---
History of Present Illness History of Present Illness Date of Service: 07/08/22 Requesting physician: Gilles Barnard Consult reason: other (Persistent atrial flutter with rapid ventricular response.) Chief complaint: PRABHU on CKD, Obstructive uropathy, Afib with RVR Narrative: I was consulted to see Ramon in cardiology consultation today for recurrent persistent atrial flutter with rapid ventricular response. He has symptomatic with it and complains of rapid heart rate as well as mild chest pressure. This has been symptoms in the past. Patient came to the hospital because over the last week he has been getting pains which he says are similar to his pain related to renal stones. He was planned to undergo lithotripsy as per his mentioning and his pain increased. His Eliquis was stopped last Monday and he came in because he continued to have pain. Chest x-ray done as outpatient he says that he was told was not showing any pathology. Subsequently continue to have pain and was referred to the hospital by his primary care physician. He came to the hospital he converted to rapid heart rate which is consistent with atrial flutter with 2 is to 1 conduction. This has been is issue in the past as well. He was also noted to have acute kidney injury on top of chronic kidney disease related to obstructive uropathy. He remains in persistent atrial flutter with rapid ventricular response despite maximal dose of Cardizem drip at this point time. Last time I had seen him in July and he had to undergo synchronized cardioversion and had bumped up his amiodarone. Again is amiodarone has been reduced and now is only taking 100 mg every other day. In the past reviewing his chart it appears that every time his amiodarone has been reduced he has recurrent atrial flutter. He continues to have abdominal discomfort related to renal stones. Plan to undergo urologic procedure today with stent placement to relieve his obstructive uropathy. He has no obvious bleeding at current time. Review of Systems Constitutional: Constitutional: Reports no additional constitutional complaints Eyes: Eyes: Reports no additional eye complaints Cardiovascular: Cardiovascular: Reports chest pain, Reports rapid heart rate, Denies leg edema, Denies lightheadedness, Denies dyspnea and Denies orthopnea Respiratory: Respiratory: Reports no additional respiratory complaints and Denies dyspnea Gastrointestinal: Gastrointestinal: Reports abdominal pain Genitourinary: Genitourinary: Reports no additional male genitourinary complaints Musculoskeletal: Musculoskeletal: Reports no additional musculoskeletal complaints Integumentary/Breasts: Skin/Breast: Reports system reviewed and no additional complaints, except as docu Neurologic: Reports system reviewed and no additional complaints, except as documented Psychiatric: Psychiatric: Reports no additional psychiatric complaints PMFSH Past Medical History Medical History Atrial fibrillation BPH loc w urin obs/LUTS Chest pain Chronic renal disease, stage 3, moderately decreased glomerular filtration rate (GFR) between 30-59 mL/min/1.73 square meter COVID-19 vaccine series completed Elevated PSA Facet arthropathy, cervical GERD (gastroesophageal reflux disease) Heart failure HTN (hypertension) Hyperlipidemia On anticoagulant therapy Renal stones Sleep apnea Symptomatic cholelithiasis Thyroid disease Surgical History Surgical History H/O colonoscopy History of surgery History of total replacement of both hip joints Hx of arthroscopic knee surgery Hx of cataract extraction Hx of cystoscopy S/P laparoscopic cholecystectomy Social History Social History Household Members: Spouse Housing: House Are you a primary child care supervisor to a significant other at home: No Do you presently have visiting nurse or other home services: No Alcohol intake: never Patient Tobacco Use Status: Never used Tobacco Advance Directives Date on File: 07/08/22 service: No Current occupational status: retired Meds Allergies Allergy/AdvReac Type Severity Reaction Status Date / Time ibuprofen [IBUPROFEN] Allergy Intermediate HIVES Verified 02/15/22 11:14 hydromorphone [From DILAUDID] AdvReac Intermediate ILEUS Verified 02/15/22 11:14 procaine [From Novocain] AdvReac Intermediate has no Verified 02/15/22 11:14 numbing effect-states monocain works narcotic pain meds AdvReac Intermediate does not Uncoded 02/15/22 11:14 relieve pain per patient Active Medications: Current Medications Amiodarone HCl (Amiodarone Hcl 200 Mg Tablet) 100 mg PO Q2D [facility] Docusate Sodium (Docusate Sodium 100 Mg Capsule) 100 mg PO BID PRN PRN Reason: Constipation Diltiazem HCl 125 mg/ Sodium (Chloride) 125 mls @ 0 mls/hr IVCONT .Q0M [facility]; Protocol Last Admin: 07/08/22 10:27 Dose: 15 mg/hr, 15 mls/hr Levothyroxine Sodium (Levothyroxine Sodium 88 Mcg Tablet) 88 mcg PO DAILY [facility] Last Admin: 07/08/22 08:56 Dose: 88 mcg Morphine Sulfate (Morphine Sulfate 2 Mg/Ml Cartridge) 1 mg IVPUSH Q4H [facility]; Protocol Last Admin: 07/08/22 08:56 Dose: 1 mg Omeprazole (Omeprazole 20 Mg Capsule.Dr) 20 mg PO DAILY [facility] Last Admin: 07/08/22 08:55 Dose: 20 mg Pharmacy Consult (Consult Rx Perform Med Rec) 1 each MISCELLANE ONCE PRN PRN Reason: Consult order Polyethylene Glycol (Polyethylene Glycol 3350 17 Gm Powd.Pack) 17 gm PO DAILY [facility] Last Admin: 07/08/22 08:34 Dose: Not Given Pravastatin Sodium (Pravastatin Sodium 80 Mg Tablet) 80 mg PO BEDTIME [facility] Last Admin: 07/07/22 21:20 Dose: 80 mg Pyridoxine HCl (Pyridoxine Hcl (Vitamin B6) 50 Mg Tablet) 100 mg PO BEDTIME [facility] Last Admin: 07/07/22 21:20 Dose: 100 mg Sodium Chloride (0.9 % Sodium Chloride Flush 3 Ml Syringe) 3 ml IVFLUSH QSHIFT [facility] Last Admin: 07/08/22 08:57 Dose: 3 ml Tamsulosin HCl (Tamsulosin Hcl 0.4 Mg Capsule) 0.4 mg PO BEDTIME [facility] Last Admin: 07/07/22 21:20 Dose: 0.4 mg Home Medications Medication Instructions Recorded Confirmed Last Taken Type levothyroxine 88 mcg tablet 88 mcg PO DAILY 11/12/20 07/07/22 07/07/22 History apixaban 5 mg tablet (Eliquis) 5 mg PO BID 02/09/21 07/07/22 07/03/22 History pravastatin 80 mg tablet 80 mg PO BEDTIME 02/09/21 07/07/22 07/06/22 History torsemide 20 mg tablet 20 mg PO Q5D PRN Edema 02/09/21 07/07/22 08/02/21 History pantoprazole 40 mg tablet,delayed 1 tab PO DAILY 09/08/21 07/07/22 07/07/22 History release amlodipine 2.5 mg tablet 2.5 mg PO DAILY 02/15/22 07/07/22 07/07/22 History amiodarone 200 mg tablet 100 mg PO Q2D 07/07/22 07/07/22 07/07/22 History Physical Exam Vital Signs: Vital Signs: Last Vital Signs Temp 98.0 F 07/08/22 12:00 Pulse 135 H 07/08/22 12:00 Resp 20 07/08/22 12:00 BP 117/86 07/08/22 12:00 Pulse Ox 94 07/08/22 12:00 O2 Del Method 07/08/22 12:00 BMI result Body Mass Index 38.8 Const: General: cooperative, comfortable, no acute distress, alert and awake Nutritional Appearance: obese Orientation/consciousness: patient oriented x3 Limitations: no limitations HEENT: Head: Yes normocephalic and Yes atraumatic Neck: Neck: Yes trachea midline, Yes supple and Yes no JVD Resp: Effort & Inspection: normal respiratory effort Auscultation: clear to auscultation bilaterally Cardio: Jugular venous distension: no JVD Rate: tachycardic Rhythm: regular rhythm Heart sounds: S1 normal heart sound present, S2 normal heart sound present, no click, no gallops, no murmurs and no rubs GI: Auscultation: normal bowel sounds Skin: General skin exam: no rashes or lesions noted Neuro: General: patient oriented x3 and no focal motor deficits Extrem: General: Yes no clubbing, cyanosis or edema Objective Labs and Meds Result diagrams: 07/07/22 14:40 07/08/22 08:57 Lab results: Laboratory Results - last 24 hr 07/07/22 07/07/22 07/07/22 14:27 14:27 14:40 WBC 8.9 RBC 4.44 L Hgb 12.6 L Hct 39.2 L MCV 88.3 MCH 28.4 MCHC 32.1 RDW 14.1 Plt Count 165 MPV 9.5 Immature Gran % (Auto) 0.2 Neut % (Auto) 67.2 Lymph % (Auto) 18.9 L [place] % (Auto) 12.6 H Eos % (Auto) 0.8 Baso % (Auto) 0.3 Lymph # (Auto) 1.7 [place] # (Auto) 1.1 Eos # (Auto) 0.1 Baso # (Auto) 0.0 Abs Immat Gran (auto) 0.02 Absolute Neuts (auto) 6.0 Absolute Nucleated RBC 0.000 Nucleated RBC % (auto) 0.0 PT INR VBG pH VBG pCO2 VBG pO2 VBG O2 Saturation Sodium Potassium Chloride Carbon Dioxide Anion Gap BUN Creatinine Estim Creat Clear Calc Estimated GFR Random Glucose Lactic Acid Calcium Total Bilirubin AST ALT Alkaline Phosphatase Troponin I High Sens B-Natriuretic Peptide Total Protein Albumin TSH COVID-19 ([facility]NY) Negative COVID-19 Clin Com See Note Influenza Type A (VERNON) Negative Influenza Type B (VERNON) Positive A Influenza A & B Note See Note 07/07/22 07/07/22 07/07/22 14:40 14:40 14:40 WBC RBC Hgb Hct MCV MCH MCHC RDW Plt Count MPV Immature Gran % (Auto) Neut % (Auto) Lymph % (Auto) [place] % (Auto) Eos % (Auto) Baso % (Auto) Lymph # (Auto) [place] # (Auto) Eos # (Auto) Baso # (Auto) Abs Immat Gran (auto) Absolute Neuts (auto) Absolute Nucleated RBC Nucleated RBC % (auto) PT 12.9 INR 1.1 VBG pH VBG pCO2 VBG pO2 VBG O2 Saturation Sodium 142 Potassium 4.5 Chloride 107 Carbon Dioxide 26 Anion Gap 14 BUN 29 H Creatinine 2.51 H Estim Creat Clear Calc 30.5 Estimated GFR 25 Random Glucose 117 H Lactic Acid 0.8 Calcium 8.6 Total Bilirubin 0.8 AST 19 ALT 22 Alkaline Phosphatase 57 Troponin I High Sens B-Natriuretic Peptide Total Protein 6.1 L Albumin 3.4 L TSH 2.16 COVID-19 (DANNY) COVID-19 Clin Com Influenza Type A (VERNON) Influenza Type B (VERNON) Influenza A & B Note 07/07/22 07/07/22 07/07/22 14:40 14:40 14:50 WBC RBC Hgb Hct MCV MCH MCHC RDW Plt Count MPV Immature Gran % (Auto) Neut % (Auto) Lymph % (Auto) [place] % (Auto) Eos % (Auto) Baso % (Auto) Lymph # (Auto) [place] # (Auto) Eos # (Auto) Baso # (Auto) Abs Immat Gran (auto) Absolute Neuts (auto) Absolute Nucleated RBC Nucleated RBC % (auto) PT INR VBG pH 7.46 H VBG pCO2 34 VBG pO2 43 VBG O2 Saturation 66.0 Sodium Potassium Chloride Carbon Dioxide Anion Gap BUN Creatinine Estim Creat Clear Calc Estimated GFR Random Glucose Lactic Acid Calcium Total Bilirubin AST ALT Alkaline Phosphatase Troponin I High Sens 20.0 B-Natriuretic Peptide 119 H Total Protein Albumin TSH COVID-19 (DANNY) COVID-19 Clin Com Influenza Type A (VERNON) Influenza Type B (VERNON) Influenza A & B Note 07/07/22 07/08/22 22:39 08:57 WBC RBC Hgb Hct MCV MCH MCHC RDW Plt Count MPV Immature Gran % (Auto) Neut % (Auto) Lymph % (Auto) [place] % (Auto) Eos % (Auto) Baso % (Auto) Lymph # (Auto) [place] # (Auto) Eos # (Auto) Baso # (Auto) Abs Immat Gran (auto) Absolute Neuts (auto) Absolute Nucleated RBC Nucleated RBC % (auto) PT INR VBG pH VBG pCO2 VBG pO2 VBG O2 Saturation Sodium 140 Potassium 4.3 Chloride 106 Carbon Dioxide 27 Anion Gap 11 L BUN 30 H Creatinine 2.65 H Estim Creat Clear Calc 29.9 Estimated GFR 23 Random Glucose 118 H Lactic Acid 0.9 Calcium 8.5 Total Bilirubin AST ALT Alkaline Phosphatase Troponin I High Sens B-Natriuretic Peptide Total Protein Albumin TSH COVID-19 (DANNY) COVID-19 Clin Com Influenza Type A (VERNON) Influenza Type B (VERNON) Influenza A & B Note Imaging Radiologist's impression: Impressions Abdomen/Pelvis CT 07/07/22 14:50 IMPRESSION: 1. Cluster of 3 left proximal ureteral stones measuring 0.9, 0.5, and 0.6 cm in size with moderate left hydroureteronephrosis and left perinephric stranding. 2. Additional small nonobstructing left renal calculi, as described. Assessment and Plan (1) Atrial flutter with rapid ventricular response: Status: Acute Recurrent and incessant atrial flutter with rapid ventricular response in this elderly gentleman who has had ablation in the past and currently failing maximal IV Cardizem drip. Also on p.o. metoprolol. Cannot use digoxin due to his renal dysfunction. Will require most likely again repeat synchronized cardioversion but given that he has had interruption is oral anticoagulation therapy will require STEWART. This was discussed with him. The issues that he is currently presenting with obstructive uropathy and requires a urologic procedure to improve his renal function. This procedure is planned today. Patient currently not having any signs or symptoms of heart failure but has rapid atrial arrhythmias which can be an issue during anesthesia. I will consider using IV esmolol during anaesthesia to improve his heart rate and improve cardiac efficiency with continuation of IV Cardizem. Overall risk is intermediate. Once his surgery is completed and he has no bleeding complications and remains without bleeding issues tomorrow and after clearance by Urology to use oral anticoagulation therapy such as Eliquis to be reinstated, will pursue STEWART guided cardioversion. Otherwise treatment options are limited. Most likely reason for recurrent atrial flutter is reduction in his outpatient amiodarone does and triggering with his acute medical/surgical illness in the setting of known prior multiple ablations. Left-sided atrial flutters are inherently difficult to manage with rate control. Plan and management was discussed with him and Dr. Davis as well as the hospitalist team. Please keep patient NPO past midnight for possible STEWART guided cardioversion tomorrow Time Spent With Patient Time: Total time managing care of this patient today ____ minutes. Procedures Date of Service Date of Service: 07/08/22
--- NOTE | 2022-07-08 15:51 | HO.ANESPROP2 ---
[facility] Active Problems Active Problems: All Active Problems (Updated 07/08/22 @ 13:22 by Dante Briones MD) Atrial flutter with rapid ventricular response (Acute) CKD (chronic kidney disease) (Acute) PRABHU (acute kidney injury) (Acute) Renal stone (Acute) Ureteral stone with hydronephrosis (Acute) Morbid obesity (Acute) Obstructed, uropathy (Acute) Acute on chronic renal failure (Acute) Atrial fibrillation with RVR (Acute) Influenza B (Acute) Murmur, heart (Acute) HTN (hypertension) (Acute) Sleep apnea (Acute) Renal stones (Acute) Elevated PSA (Acute) BPH loc w urin obs/LUTS (Acute) Past Medical History Medical History Atrial fibrillation BPH loc w urin obs/LUTS Chest pain Chronic renal disease, stage 3, moderately decreased glomerular filtration rate (GFR) between 30-59 mL/min/1.73 square meter COVID-19 vaccine series completed Elevated PSA Facet arthropathy, cervical GERD (gastroesophageal reflux disease) Heart failure HTN (hypertension) Hyperlipidemia On anticoagulant therapy Renal stones Sleep apnea Symptomatic cholelithiasis Thyroid disease Family History Family history of problems with anesthesia: No Surgical History Surgical History H/O colonoscopy History of surgery History of total replacement of both hip joints Hx of arthroscopic knee surgery Hx of cataract extraction Hx of cystoscopy S/P laparoscopic cholecystectomy History of Problems with Anesthesia: No Social History Social History Household Members: Spouse Housing: House Are you a primary critical care specialist to a significant other at home: No Do you presently have visiting nurse or other home services: No Alcohol intake: never Patient Tobacco Use Status: Never used Tobacco Advance Directives Date on File: 07/08/22 service: No Current occupational status: retired Meds Allergies Allergy/AdvReac Type Severity Reaction Status Date / Time ibuprofen [IBUPROFEN] Allergy Intermediate HIVES Verified 02/15/22 11:14 hydromorphone [From DILAUDID] AdvReac Intermediate ILEUS Verified 02/15/22 11:14 procaine [From Novocain] AdvReac Intermediate has no Verified 02/15/22 11:14 numbing effect-states monocain works narcotic pain meds AdvReac Intermediate does not Uncoded 02/15/22 11:14 relieve pain per patient Active Medications: Current Medications Amiodarone HCl (Amiodarone Hcl 200 Mg Tablet) 100 mg PO Q2D [facility] Docusate Sodium (Docusate Sodium 100 Mg Capsule) 100 mg PO BID PRN PRN Reason: Constipation Diltiazem HCl 125 mg/ Sodium (Chloride) 125 mls @ 0 mls/hr IVCONT .Q0M [facility]; Protocol Last Admin: 07/08/22 10:27 Dose: 15 mg/hr, 15 mls/hr Cefazolin Sodium/Dextrose (Ancef) 2 gm in 50 mls @ 100 mls/hr IV PREOP ONE Stop: 07/08/22 15:58 Levothyroxine Sodium (Levothyroxine Sodium 88 Mcg Tablet) 88 mcg PO DAILY [facility] Last Admin: 07/08/22 08:56 Dose: 88 mcg Morphine Sulfate (Morphine Sulfate 2 Mg/Ml Cartridge) 1 mg IVPUSH Q4H [facility]; Protocol Last Admin: 07/08/22 13:26 Dose: 1 mg Omeprazole (Omeprazole 20 Mg Capsule.Dr) 20 mg PO DAILY [facility] Last Admin: 07/08/22 08:55 Dose: 20 mg Oseltamivir Phosphate (Oseltamivir Phosphate 30 Mg Capsule) 30 mg PO Q24H [facility] Pharmacy Consult (Consult Rx Perform Med Rec) 1 each MISCELLANE ONCE PRN PRN Reason: Consult order Polyethylene Glycol (Polyethylene Glycol 3350 17 Gm Powd.Pack) 17 gm PO DAILY [facility] Last Admin: 07/08/22 08:34 Dose: Not Given Pravastatin Sodium (Pravastatin Sodium 80 Mg Tablet) 80 mg PO BEDTIME [facility] Last Admin: 07/07/22 21:20 Dose: 80 mg Pyridoxine HCl (Pyridoxine Hcl (Vitamin B6) 50 Mg Tablet) 100 mg PO BEDTIME [facility] Last Admin: 07/07/22 21:20 Dose: 100 mg Sodium Chloride (0.9 % Sodium Chloride Flush 3 Ml Syringe) 3 ml IVFLUSH QSHIFT [facility] Last Admin: 07/08/22 08:57 Dose: 3 ml Tamsulosin HCl (Tamsulosin Hcl 0.4 Mg Capsule) 0.4 mg PO BEDTIME [facility] Last Admin: 07/07/22 21:20 Dose: 0.4 mg Home Medications Medication Instructions Recorded Confirmed Last Taken Type levothyroxine 88 mcg tablet 88 mcg PO DAILY 11/12/20 07/07/22 07/07/22 History apixaban 5 mg tablet (Eliquis) 5 mg PO BID 02/09/21 07/07/22 07/03/22 History pravastatin 80 mg tablet 80 mg PO BEDTIME 02/09/21 07/07/22 07/06/22 History torsemide 20 mg tablet 20 mg PO Q5D PRN Edema 02/09/21 07/07/22 08/02/21 History pantoprazole 40 mg tablet,delayed 1 tab PO DAILY 09/08/21 07/07/22 07/07/22 History release amlodipine 2.5 mg tablet 2.5 mg PO DAILY 02/15/22 07/07/22 07/07/22 History amiodarone 200 mg tablet 100 mg PO Q2D 07/07/22 07/07/22 07/07/22 History Exam Exam Date and Time: July 08, 2022 1551 Height,Weight and Vital Signs: Height 6 ft Weight 129.9 kg Last Vital Signs Temp 98.0 F 07/08/22 12:00 Pulse 135 H 07/08/22 12:00 Resp 18 07/08/22 13:26 BP 117/86 07/08/22 12:00 Pulse Ox 94 07/08/22 12:00 O2 Del Method 07/08/22 12:00 Pertinent Lab Results Pertinent Lab Results: Laboratory Tests 07/07/22 07/07/22 07/07/22 14:27 14:27 14:40 WBC 8.9 RBC 4.44 L Hgb 12.6 L Hct 39.2 L MCV 88.3 MCH 28.4 MCHC 32.1 RDW 14.1 Plt Count 165 MPV 9.5 Immature Gran % (Auto) 0.2 Neut % (Auto) 67.2 Lymph % (Auto) 18.9 L [place] % (Auto) 12.6 H Eos % (Auto) 0.8 Baso % (Auto) 0.3 Lymph # (Auto) 1.7 [place] # (Auto) 1.1 Eos # (Auto) 0.1 Baso # (Auto) 0.0 Abs Immat Gran (auto) 0.02 Absolute Neuts (auto) 6.0 Absolute Nucleated RBC 0.000 Nucleated RBC % (auto) 0.0 PT INR VBG pH VBG pCO2 VBG pO2 VBG HCO3 VBG O2 Saturation VBG Base Excess Sodium Potassium Chloride Carbon Dioxide Anion Gap BUN Creatinine Estim Creat Clear Calc Estimated GFR Random Glucose Lactic Acid Calcium Total Bilirubin AST ALT Alkaline Phosphatase Troponin I High Sens B-Natriuretic Peptide Total Protein Albumin TSH COVID-19 ([facility]NY) Negative COVID-19 Clin Com See Note Influenza Type A ([facility]) Negative Influenza Type B ([facility]) Positive A Influenza A & B Note See Note 07/07/22 07/07/22 07/07/22 14:40 14:40 14:40 WBC RBC Hgb Hct MCV MCH MCHC RDW Plt Count MPV Immature Gran % (Auto) Neut % (Auto) Lymph % (Auto) [place] % (Auto) Eos % (Auto) Baso % (Auto) Lymph # (Auto) [place] # (Auto) Eos # (Auto) Baso # (Auto) Abs Immat Gran (auto) Absolute Neuts (auto) Absolute Nucleated RBC Nucleated RBC % (auto) PT 12.9 INR 1.1 VBG pH VBG pCO2 VBG pO2 VBG HCO3 VBG O2 Saturation VBG Base Excess Sodium 142 Potassium 4.5 Chloride 107 Carbon Dioxide 26 Anion Gap 14 BUN 29 H Creatinine 2.51 H Estim Creat Clear Calc 30.5 Estimated GFR 25 Random Glucose 117 H Lactic Acid 0.8 Calcium 8.6 Total Bilirubin 0.8 AST 19 ALT 22 Alkaline Phosphatase 57 Troponin I High Sens B-Natriuretic Peptide Total Protein 6.1 L Albumin 3.4 L TSH 2.16 COVID-19 (DANNY) COVID-19 Clin Com Influenza Type A ([facility]) Influenza Type B ([facility]) Influenza A & B Note 07/07/22 07/07/22 07/07/22 14:40 14:40 14:50 WBC RBC Hgb Hct MCV MCH MCHC RDW Plt Count MPV Immature Gran % (Auto) Neut % (Auto) Lymph % (Auto) [place] % (Auto) Eos % (Auto) Baso % (Auto) Lymph # (Auto) [place] # (Auto) Eos # (Auto) Baso # (Auto) Abs Immat Gran (auto) Absolute Neuts (auto) Absolute Nucleated RBC Nucleated RBC % (auto) PT INR VBG pH 7.46 H VBG pCO2 34 VBG pO2 43 VBG HCO3 TNP VBG O2 Saturation 66.0 VBG Base Excess TNP Sodium Potassium Chloride Carbon Dioxide Anion Gap BUN Creatinine Estim Creat Clear Calc Estimated GFR Random Glucose Lactic Acid Calcium Total Bilirubin AST ALT Alkaline Phosphatase Troponin I High Sens 20.0 B-Natriuretic Peptide 119 H Total Protein Albumin TSH COVID-19 (DANNY) COVID-19 Clin Com Influenza Type A ([facility]) Influenza Type B ([facility]) Influenza A & B Note 07/07/22 07/08/22 22:39 08:57 WBC RBC Hgb Hct MCV MCH MCHC RDW Plt Count MPV Immature Gran % (Auto) Neut % (Auto) Lymph % (Auto) [place] % (Auto) Eos % (Auto) Baso % (Auto) Lymph # (Auto) [place] # (Auto) Eos # (Auto) Baso # (Auto) Abs Immat Gran (auto) Absolute Neuts (auto) Absolute Nucleated RBC Nucleated RBC % (auto) PT INR VBG pH VBG pCO2 VBG pO2 VBG HCO3 VBG O2 Saturation VBG Base Excess Sodium 140 Potassium 4.3 Chloride 106 Carbon Dioxide 27 Anion Gap 11 L BUN 30 H Creatinine 2.65 H Estim Creat Clear Calc 29.9 Estimated GFR 23 Random Glucose 118 H Lactic Acid 0.9 Calcium 8.5 Total Bilirubin AST ALT Alkaline Phosphatase Troponin I High Sens B-Natriuretic Peptide Total Protein Albumin TSH COVID-19 ([facility]ANNY) COVID-19 Clin Com Influenza Type A ([facility]) Influenza Type B ([facility]) Influenza A & B Note Airway Mallampati Class: II TM Dist: >3cm Neck ROM: Full Heart: irreg. irreg HR Assessment and Plan Assessment Anesthesia Assessment: Anesthesia Plan Discussed and Chart Reviewed Final Anesthetic Review Family History of Problems with Anesthesia: No History of Problems with Anesthesia: No NPO: Yes ASA Class: III and Emergency Final Preanesthetic Review: No Changes in Pt Med Stat, Meds/Allgs Chart Reviewed, Consent Obtained/Reviewed and Anes Risks/Benef Reviewed Patient Risk: Intermediate Procedure Risk: Low Anesthetic Plan Anesthetic Plan: GA Disposition: Standard PACU
--- NOTE | 2022-07-08 15:52 | MHC.SHP ---
Pre-Procedural Eval Section A Date of Service: 07/08/22 The patient is an INPATIENT: Yes The History & Physical has been completed within 30 days and I have reviewed it.: Yes Section B Chief Complaint: PRABHU on CKD, Obstructive uropathy, Afib with RVR Allergies: Allergies Allergy/AdvReac Type Severity Reaction Status Date / Time ibuprofen [IBUPROFEN] Allergy Intermediate HIVES Verified 02/15/22 11:14 hydromorphone [From DILAUDID] AdvReac Intermediate ILEUS Verified 02/15/22 11:14 procaine [From Novocain] AdvReac Intermediate has no Verified 02/15/22 11:14 numbing effect-states monocain works narcotic pain meds AdvReac Intermediate does not Uncoded 02/15/22 11:14 relieve pain per patient Plan I have reviewed the history and physical and performed a pertinent physical examination on my patient. No changes have occurred unless specified. Plan for Cystoscopy, Left ureteral stent possible ureteroscopy, possible laser lithotripsy. Risks discussed included but not limited to, Irritative voiding symptoms, bladder spasms, urgency, blood in urine. Time Spent With Patient Time: Total time managing care of this patient today ____ minutes.
--- NOTE | 2022-07-08 20:18 | W.PM.OPN ---
Operative Note Operative Note Date of Service: 07/08/22 Narrative: PreOperative Diagnosis:?? Left ureteral stone, left hydronephrosis Post Operative Diagnosis:?? ?Left ureteral stone, left hydronephrosis Procedure: - cystoscopy, left retrograde- left stent placement Surgeon:?Dr Mone Sandoval Anesthesia:? General Indications for procedure: Ramon is an 82-year-old gentleman admitted with left flank pain CT imaging noted left hydronephrosis with obstructing proximal ureteral stones x3 and worsening renal function. Procedure: After informed consent was verified the patient was brought to the operating placed on the OR table in supine position.? General Anesthesia was administered per protocol.? The patient was placed in lithotomy position, prepped and draped in the usual sterile fashion.? Safety pause time-out and side of surgery confirmed.? Antibiotics confirmed. A 22 Ecu[place]orean cystoscope was inserted transurethrally, the bulbous urethra was within normal limits. The prostatic urethra noted mild to moderate trilobar enlargement. The bladder was visualized.? Both ureteric orifices were in normal position. The? left ureteric orifice was cannulated? and a retrograde examination was performed, there was a filling defect proximal in the left ureter consistent with this stones and significant dilatation of the renal pelvis. Urine was sent for culture from the left ureter. A hydrophilic guidewire was placed up to the level of the renal pelvis under fluoroscopy. A? 6 Ecuadorean by multi- length stent was placed into the ureter and renal pelvis under a combination of fluoroscopy and direct visualization. The bladder was emptied.? The rigid cystoscope was removed. ?2% lidocaine jelly was placed transurethrally. The patient tolerated the procedure well and was brought to the recovery room in stable condition. Complications: None Drains: Ureteral stent as dictated above
[2022-07-08 20:34] LABS: Appearance Urine Cloudy; Color Urine Dark Yellow; Glucose Urine UA Negative (Negative); Leukocyte Esterase Urine Moderate (2+) (Negative); Nitrite Urine Negative (Negative); PH 5.5 (5.0-9.0); Specific Gravity - Urine 1.015 (1.005-1.025); UMIC TRIGGER UACC YES; Urine Blood Large (3+) (Negative); Urine Ketones Trace mg/dL (Negative); Urine Protein 100 (2+) mg/dL (Neg-Trace)
[2022-07-08 20:45] LABS: Bacteria Urine None Seen (None Seen); Hyaline Casts Urine 0-2 /LPF (0-2); UACC Culture Trigger YES; WBC Urine >50 /HPF (0-5)
[2022-07-08] MEDS: Oseltamivir Phosphate 30 MG CAPSULE PO (21:10)
[2022-07-08] MEDS: Pyridoxine HCl (Vitamin B6) 50 MG TABLET 100 MG PO (21:11)
[2022-07-08] MEDS: Pravastatin Sodium 80 MG TABLET PO (21:11)
[2022-07-08] MEDS: Tamsulosin HCL 0.4 MG CAPSULE PO (21:11)
[2022-07-09] VITALS (9 sets, daily range): BP systolic 99–146; BP diastolic 64–76; PULSE 116–130; RESP 18–20; TEMP 36.3–37.1; O2SAT 92–98
[2022-07-09] MEDS: Morphine Sulfate 2 MG/ML CARTRIDGE 1 MG IVPUSH ×3 (01:40→09:06)
--- NOTE | 2022-07-09 01:57 | PC.NURSE ---
had urological stent to left ureter this evening. Was in a-fib with RVR all day, rate 129-136, largely asymptomatic, on cardizem gtt maxed at 15 mg/hr, MD aware, cardiology in to see patient, planned for echo tomorrow and possible cardioversion, MD aware. Urology reports patient may start eliquis again tomorrow morning, dr. Barnard notified. Patient with regular diet ordered after stent placement, but keeping NPO after midnight in prep. Voiding in small amounts in urinal orestes urine.
[2022-07-09] MEDS: dilTIAZem HCL 125 MG in 0.9 % Sodium Chloride 100 ML 15 MG IVCONT ×3 (05:54→22:35)
[2022-07-09 09:01] LABS: Blood Urea Nitrogen 32 mg/dL (9-16); Calcium 8.5 mg/dL (8.4-10.2); Creatinine Clr Calc Pharmacy 32.3; Estimated Glomerular Filt Rate 25; Glucose Random 138 mg/dL (60-115)
[2022-07-09] MEDS: Metoprolol Tartrate 12.5 MG HALFTAB PO ×3 (09:05→19:57)
[2022-07-09] MEDS: Levothyroxine Sodium 88 MCG TABLET PO (09:05)
[2022-07-09] MEDS: Omeprazole 20 MG CAPSULE.DR PO (09:05)
[2022-07-09] MEDS: 0.9 % Sodium Chloride Flush 3 ML SYRINGE IVFLUSH ×3 (09:05→20:07)
[2022-07-09 09:10] LABS: Anion Gap 18 (12-20); Carbon Dioxide 20 mmol/L (22-29); Chloride 107 mmol/L (96-108); Potassium 5.3 mmol/L (3.3-5.1); Sodium 140 mmol/L (135-145)
[2022-07-09] MEDS: Apixaban 2.5 MG TABLET PO ×2 (10:02→19:57)
[2022-07-09] MEDS: Sodium Zirconium Cyclosilicate 5 GM POWD.PACK PO (10:02)
--- NOTE | 2022-07-09 11:29 | HO.POSTANES ---
Post Anesthesia Evaluation Post Anesthesia Evaluation Vital Signs: Vital Signs Temp Pulse Resp BP Pulse Ox O2 Del Method 07/09/22 08:00 97.4 F 123 H 20 121/64 95 Room Air 07/09/22 03:50 97.6 F 130 H 18 119/67 92 CPAP 07/09/22 00:00 98.0 F 130 H 18 116/68 94 CPAP Anesthesia: General Mental Status: Awake Pain Control: Satisfactory Nausea/Vomiting: None Hydration: Adequate Anesthesia-Related Issues: No Anes. Related Issues
--- NOTE | 2022-07-09 11:54 | PM.PNCARD ---
Subjective Subjective Date of Service: 07/09/22 Principal diagnosis: Atrial flutter with rapid ventricular response Interval history: Patient continues to have palpitation with rapid heart with heart rate at 130 beats per minute atrial flutter. Tolerated he has urologic procedure strip. Currently not having any hematuria but complains of continued and increasing pain in his right hypochondriac area. He thinks the stone has not improved. He was given Eliquis this morning after discussion with Urology and has tolerated this well, renally adjusted dose of Eliquis is given. He is on maximal dose of Cardizem IV drip. Denies any heart failure symptoms Review of Systems Constitutional: Reports no additional constitutional complaints Cardiovascular: Reports chest pain at rest, Reports rapid heart rate, Reports palpitations and Reports orthopnea Respiratory: Reports no additional respiratory complaints Gastrointestinal: Reports abdominal pain Skin/Breast: Reports system reviewed and no additional complaints, except as docu Reports system reviewed and no additional complaints, except as documented Psychiatric: Reports no additional psychiatric complaints Endocrine: Reports no additional endocrine complaints and Reports palpitations Hematologic/Lymphatic: Reports no additional hematologic/lymphatic complaints Physical Exam Vital Signs: Last Vital Signs Temp 97.4 F 07/09/22 08:00 Pulse 123 H 07/09/22 08:00 Resp 20 07/09/22 08:00 BP 121/64 07/09/22 08:00 Pulse Ox 95 07/09/22 08:00 O2 Del Method 07/09/22 08:00 O2 Flow Rate 2 07/08/22 20:25 BMI result Body Mass Index 38.8 Const General: cooperative, comfortable, no acute distress, alert and awake Nutritional Appearance: obese Orientation/consciousness: patient oriented x3 Limitations: no limitations Neck Neck: Yes trachea midline, Yes supple and Yes no JVD Resp Effort & Inspection: normal respiratory effort Auscultation: clear to auscultation bilaterally Cardio Jugular venous distension: no JVD Rate: tachycardic Rhythm: regular rhythm Heart sounds: S1 normal heart sound present, S2 normal heart sound present, no click, no gallops, no murmurs and no rubs GI Auscultation: normal bowel sounds Neuro General: patient oriented x3 and no focal motor deficits Extrem General: Yes no clubbing, cyanosis or edema Objective Labs and Meds Result diagrams: 07/07/22 14:40 07/09/22 08:04 Lab results: Laboratory Results - last 24 hr 07/07/22 07/08/22 07/09/22 14:50 14:15 08:04 VBG HCO3 TNP VBG Base Excess TNP Sodium 140 Potassium 5.3 H D Chloride 107 Carbon Dioxide 20 L Anion Gap 18 BUN 32 H Creatinine 2.45 H Estim Creat Clear Calc 32.3 Estimated GFR 25 Random Glucose 138 H Calcium 8.5 Urine Color Dark Yellow Urine Appearance Cloudy Urine pH 5.5 Ur Specific [place] 1.015 Urine Protein 100 (2+) H Urine Glucose (UA) Negative Urine Ketones Trace Urine Blood Large (3+) H Urine Nitrite Negative Ur Leukocyte Esterase Moderate (2+) H Urine RBC 11-20 H Urine WBC >50 H Ur Squamous Epith Cells 11-20 Urine Bacteria None Seen Hyaline Casts 0-2 Progress Note: A&P Assessment and plan (1) Atrial flutter with rapid ventricular response: Status: Acute Assessment and Plan: Persistent incessant atrial flutter with rapid ventricular response with 2 is to 1 conduction, left-sided flutter by EKG. Most likely related to scarring from his prior ablation. Not responsive to IV Cardizem maximal drip. Start p.o. metoprolol 12.5 mg q.6 hours as discussed. If rate is not adequately controlled will require synchronized cardioversion. However this is complicated patient continues to have urologic symptoms. Please discussed with urology if no procedures are planned in the near future. If she is planned to undergo urologic procedure I would not perform STEWART guided cardioversion. Has after cardioversion as risk of stroke is significantly elevated. Avoid amiodarone therapy. Will continue to follow with you Time Spent With Patient Time: Total time managing care of this patient today ____ minutes. Progress Note: Quality Stroke Does the patient have a stroke diagnosis?: No Procedures Date of Service Date of Service: 07/09/22
[2022-07-09] MEDS: Sennosides 8.6 MG TABLET 17.2 MG PO ×2 (13:29→19:56)
[2022-07-09] MEDS: Morphine Sulfate 2 MG/ML CARTRIDGE IVPUSH ×4 (13:30→20:00)
--- NOTE | 2022-07-09 14:05 | P.PNUR_ITS ---
Subjective Subjective Date of Service: 07/09/22 Patient reports: still having pain Interval history: 82 year old male with history of kidney stones admitted with obstructive uropathy secondary to left ureteral stones. CT imaging 3 stones in the proximal ureter causing left hydronephrosis, pt with acute renal insufficiency, s/p Left ureteral stent to relieve obstruction, will monitor renal function. The patient has medical complications of tachycardia which has failed medical management and requires cardioversion. The patient will need further stone management, but this in not urgent. He continues to have pain, will manage conservatively and follow renal function. Physical Exam Vital Signs: Vital Signs: Last Vital Signs Temp 98.2 F 07/09/22 11:54 Pulse 126 H 07/09/22 11:54 Resp 20 07/09/22 11:54 BP 118/69 07/09/22 11:54 Pulse Ox 96 07/09/22 11:54 O2 Del Method 07/09/22 11:54 O2 Flow Rate 2 07/09/22 11:54 BMI result Body Mass Index 38.8 Urology Results Labs CBC & Chem 7: 07/07/22 14:40 07/09/22 08:04 Labs: Laboratory Results - last 24 hr 07/07/22 07/08/22 07/09/22 14:50 14:15 08:04 VBG HCO3 TNP VBG Base Excess TNP Sodium 140 Potassium 5.3 H D Chloride 107 Carbon Dioxide 20 L Anion Gap 18 BUN 32 H Creatinine 2.45 H Estim Creat Clear Calc 32.3 Estimated GFR 25 Random Glucose 138 H Calcium 8.5 Urine Color Dark Yellow Urine Appearance Cloudy Urine pH 5.5 Ur Specific [place] 1.015 Urine Protein 100 (2+) H Urine Glucose (UA) Negative Urine Ketones Trace Urine Blood Large (3+) H Urine Nitrite Negative Ur Leukocyte Esterase Moderate (2+) H Urine RBC 11-20 H Urine WBC >50 H Ur Squamous Epith Cells 11-20 Urine Bacteria None Seen Hyaline Casts 0-2 Progress Note: A&P Assessment and plan (1) Ureteral stone with hydronephrosis: Status: Acute (2) Obstructed, uropathy: Status: Acute (3) Acute on chronic renal failure: Status: Acute (4) Renal stone: Status: Acute Plan Left Hydronephrosis--3 stones in the proximal ureter causing left hydronephrosis, pt with acute renal insufficiency, s/p Left ureteral stent 07/08/22 Will monitor renal function. He continues to have pain, will manage conservatively The patient has medical complications of tachycardia which has failed medical management and requires cardioversion. The patient will need further stone management, but this in not urgent. The patient's cardiac status takes precedence over goal to break up stones, as stent has been placed to treat the acute medical concern - obstructive uropathy as cause for acute renal failure. No procedures necessary for 4- 6 weeks if cardioversion needs to be done. Time Spent With Patient Time: Total time managing care of this patient today ____ minutes. Progress Note: Quality Stroke Does the patient have a stroke diagnosis?: No
[2022-07-09] MEDS: Oseltamivir Phosphate 30 MG CAPSULE PO (14:50)
[2022-07-09] MEDS: oxyCODONE HCl Immed Release 5 MG TABLET PO (14:50)
[2022-07-09] MEDS: Lactated Ringers 1,000 ML 50 ML IVCONT (14:50)
--- NOTE | 2022-07-09 14:51 | HO.PM.IMPN ---
Subjective Subjective Date of Service: 07/09/22 Interval History: persistent afib Nephrolithiasis Review of Systems still has left sided flank pain , no nausea vomiting or fever or chills Physical Exam Vital Signs: Vital Signs: Last Vital Signs Temp 98.2 F 07/09/22 11:54 Pulse 126 H 07/09/22 11:54 Resp 20 07/09/22 11:54 BP 118/69 07/09/22 11:54 Pulse Ox 96 07/09/22 11:54 O2 Del Method 07/09/22 11:54 O2 Flow Rate 2 07/09/22 11:54 BMI result Body Mass Index 38.8 Appearance: Alert.? Oriented X3.? in pain. cvs: rrr, [id number] , no murmur res: clear to auscultation ,no rhonchii or wheezing abd: no rebound or guarding ,left flank pain, bs present. ext pulses present , no cyanosis . neuro: axo3 , nonfocal. Objective Data Active Medications Apixaban (Apixaban 2.5 Mg Tablet) 2.5 mg PO BID [facility] Last Admin: 07/09/22 10:02 Dose: 2.5 mg Documented By: CLAUDIA Docusate Sodium (Docusate Sodium 100 Mg Capsule) 100 mg PO BID [facility] Diltiazem HCl 125 mg/ Sodium (Chloride) 125 mls @ 0 mls/hr IVCONT .Q0M [facility]; Protocol Last Admin: 07/09/22 13:26 Dose: 15 mg/hr, 15 mls/hr Documented By: CLAUDIA Lactated Ringer's (Lr) 1,000 mls @ 50 mls/hr IVCONT .Q20H [facility] Last Admin: 07/09/22 14:50 Dose: 50 mls/hr Documented By: CLAUDIA Levothyroxine Sodium (Levothyroxine Sodium 88 Mcg Tablet) 88 mcg PO DAILY [facility] Last Admin: 07/09/22 09:05 Dose: 88 mcg Documented By: CLAUDIA Metoprolol Tartrate (Metoprolol Tartrate 12.5 Mg Halftab) 12.5 mg PO TID [facility]; Protocol Last Admin: 07/09/22 13:28 Dose: 12.5 mg Documented By: CLAUDIA Morphine Sulfate (Morphine Sulfate 2 Mg/Ml Cartridge) 2 mg IVPUSH Q4H [facility]; Protocol Last Admin: 07/09/22 13:30 Dose: 2 mg Documented By: CLAUDIA Omeprazole (Omeprazole 20 Mg Capsule.) 20 mg PO DAILY [facility] Last Admin: 07/09/22 09:05 Dose: 20 mg Documented By: CLAUDIA Oseltamivir Phosphate (Oseltamivir Phosphate 30 Mg Capsule) 30 mg PO Q24H [facility] Last Admin: 07/09/22 14:50 Dose: 30 mg Documented By: CLAUDIA Oxycodone HCl (Oxycodone Hcl Immed Release 5 Mg Tablet) 5 mg PO Q6H PRN PRN Reason: Pain, Mild (Pain Scale 1-3) Last Admin: 07/09/22 14:50 Dose: 5 mg Documented By: CLAUDIA Pharmacy Consult (Consult Rx Perform Med Rec) 1 each MISCELLANE ONCE PRN PRN Reason: Consult order Pravastatin Sodium (Pravastatin Sodium 80 Mg Tablet) 80 mg PO BEDTIME [facility] Last Admin: 07/08/22 21:11 Dose: 80 mg Documented By: DANIELA Pyridoxine HCl (Pyridoxine Hcl (Vitamin B6) 50 Mg Tablet) 100 mg PO BEDTIME [facility] Last Admin: 07/08/22 21:11 Dose: 100 mg Documented By: DANIELA Senna (Sennosides 8.6 Mg Tablet) 17.2 mg PO BID [facility] Last Admin: 07/09/22 13:29 Dose: 17.2 mg Documented By: CLAUDIA Sodium Chloride (0.9 % Sodium Chloride Flush 3 Ml Syringe) [facility] Last Admin: 07/09/22 14:51 Dose: 3 ml Documented By: CLAUDIA Tamsulosin HCl (Tamsulosin Hcl 0.4 Mg Capsule) 0.8 mg PO BEDTIME [facility] Labs CBC & Chem 7: 07/07/22 14:40 07/09/22 08:04 Labs: Laboratory Results - last 24 hr 07/07/22 07/08/22 07/09/22 14:50 14:15 08:04 VBG HCO3 TNP VBG Base Excess TNP Anion Gap 18 Estim Creat Clear Calc 32.3 Estimated GFR 25 Random Glucose 138 H Calcium 8.5 Urine Color Dark Yellow Urine Appearance Cloudy Urine pH 5.5 Ur Specific [place] 1.015 Urine Protein 100 (2+) H Urine Glucose (UA) Negative Urine Ketones Trace Urine Blood Large (3+) H Urine Nitrite Negative Ur Leukocyte Esterase Moderate (2+) H Urine RBC 11-20 H Urine WBC >50 H Ur Squamous Epith Cells 11-20 Urine Bacteria None Seen Hyaline Casts 0-2 Microbiology Microbiology Results: Microbiology 07/08/22 Unknown Urine Culture - Preliminary Urine Catheterized - Straight Catheter No growth to date. 07/07/22 15:30 Blood Culture - Preliminary Blood - Venous No growth after 24 hours. 07/07/22 14:40 Blood Culture - Preliminary Blood - Venous No growth after 24 hours. Assessment and Plan (1) Atrial fibrillation with rapid ventricular response: Status: Resolved (2) Ureteral stone with hydronephrosis: Status: Acute (3) Atrial fibrillation with RVR: Status: Acute (4) PRABHU (acute kidney injury): Status: Acute (5) CKD (chronic kidney disease): Status: Acute (6) Atrial flutter with rapid ventricular response: Status: Acute Plan 81-year-old male with past medical history of AFib status post ablation, hypertension, CKD, who presents the hospital in AFib with RVR prabhu on ckd( at least ckd3) due to possible uropathy: cr slightly improving will add gentle hydration since patient is euvolemic hematuria sec to renal stones encouraged for po hydration, flomax. pain control with iv morphine,oxycodone ,bowel regimen. urology eval( as per ed d/w urology -plan for urology stent). # Aflutter? with RVR(possible pain component also contributing) Rate controlled, rhythm still in AFib Continue diltiazem drip started diet and eliquis d/w urology-patient's cardiac status takes precedence over goal to break up stones, as stent has been placed to treat the acute medical concern - obstructive uropathy as cause for acute renal failure. No procedures necessary for 4- 6 weeks if cardioversion needs to be don cardiology folowing # history of CHF ?No evidence of exacerbation hold diurtics due to prabhu and euvolemic ,will avoid fluids since has chf hx ,hold diuretics. # hypothyroidism continue levothyroxine # GERD ?Continue omeprazole Sleep apnea: cotninue cpap. Influenza B: seems asymptomatic ?unclear how long positive will check with patient if wants to try tamiflu . Morbid obesity:? Encouraged to lose weight. DVT prophylaxis:? mech devices ongoing hospitilisation need:afib with rvr -need iv cardizem and po metoprolol,nephrolithasis -s/p ureteral stent, also renal function and electrolyte moniterin Time Spent With Patient Time: Total time managing care of this patient today ____ minutes. Quality Stroke Does the patient have a stroke diagnosis?: No VTE Prior VTE?: No VTE Risk Level:: Medical - moderate - high VTE Device Contraindication: N/A - Device Ordered VTE Drug Contraindication: N/A - Med Ordered
[2022-07-09] MEDS: Lidocaine 4 % Patch ADH..PATCH 1 PATCH TRANSDERMA (18:34)
[2022-07-09] MEDS: polyethylene glycoL 3350 17 GM POWD.PACK PO (18:36)
[2022-07-09] MEDS: Tamsulosin HCL 0.4 MG CAPSULE 0.8 MG PO (19:57)
[2022-07-09] MEDS: Pravastatin Sodium 80 MG TABLET PO (19:57)
[2022-07-09] MEDS: Pyridoxine HCl (Vitamin B6) 50 MG TABLET 100 MG PO (19:57)
[2022-07-09] MEDS: Docusate Sodium 100 MG CAPSULE PO (19:57)
[2022-07-09] MEDS: Acetaminophen 1,000 MG/100 ML PIGGYBACK 400 MG IV (20:28)
--- NOTE | 2022-07-09 22:31 | PM.EVENT ---
Event Note Date of Service: 07/09/22 Event Note: pt tachycardic with HR in the 130s on max cardizem and received po metoprolol. BP soft. Cardiology note reviewed. will give one time dose of digoxin Time Spent With Patient Time: Total time managing care of this patient today ____ minutes.
[2022-07-09] MEDS: Digoxin 0.5 MG/2 ML AMPUL 0.25 MG IVPUSH (22:57)
[2022-07-09] MEDS: Acetaminophen 325 MG TABLET 975 MG PO (23:02)
[2022-07-10] VITALS (10 sets, daily range): BP systolic 111–140; BP diastolic 65–82; PULSE 72–133; RESP 18–20; TEMP 36.3–38.9; O2SAT 91–95
[2022-07-10] MEDS: Morphine Sulfate 2 MG/ML CARTRIDGE IVPUSH ×6 (00:22→19:36)
[2022-07-10] MEDS: Acetaminophen 325 MG TABLET 975 MG PO (09:09)
[2022-07-10] MEDS: 0.9 % Sodium Chloride Flush 3 ML SYRINGE IVFLUSH ×3 (09:09→19:37)
[2022-07-10] MEDS: polyethylene glycoL 3350 17 GM POWD.PACK PO ×2 (09:09→09:12)
[2022-07-10] MEDS: Sennosides 8.6 MG TABLET 17.2 MG PO ×2 (09:10→19:38)
[2022-07-10] MEDS: Apixaban 2.5 MG TABLET PO ×2 (09:10→19:38)
[2022-07-10] MEDS: Levothyroxine Sodium 88 MCG TABLET PO (09:10)
[2022-07-10] MEDS: Omeprazole 20 MG CAPSULE.DR PO (09:10)
[2022-07-10] MEDS: Lidocaine 4 % Patch ADH..PATCH 1 PATCH TRANSDERMA (09:10)
[2022-07-10] MEDS: Metoprolol Tartrate 12.5 MG HALFTAB PO ×4 (09:10→19:37)
[2022-07-10] MEDS: Docusate Sodium 100 MG CAPSULE PO ×2 (09:10→19:38)
[2022-07-10 09:57] LABS: Anion Gap 17 (12-20); Blood Urea Nitrogen 46 mg/dL (9-16); Calcium 8.4 mg/dL (8.4-10.2); Carbon Dioxide 22 mmol/L (22-29); Chloride 107 mmol/L (96-108); Creatinine Clr Calc Pharmacy 26.1; Estimated Glomerular Filt Rate 20; Glucose Random 148 mg/dL (60-115); Potassium 5.2 mmol/L (3.3-5.1); Sodium 141 mmol/L (135-145)
--- NOTE | 2022-07-10 13:22 | PM.PNCARD ---
Subjective Subjective Date of Service: 07/10/22 Principal diagnosis: Atrial flutter with rapid ventricular response Interval history: Patient continues to remain in atrial flutter with rapid ventricular response. Tried 1 dose of IV digoxin yesterday which briefly corrected or slowed his heart rate. However again this morning heart rate up to 130-135 beats per minute atrial flutter with 2 is to 1 conduction. No obvious heart failure since. He has had no major bleeding issues from the urinary tract. Review of Systems Constitutional: Reports no additional constitutional complaints Cardiovascular: Reports palpitations and Reports dyspnea Respiratory: Reports dyspnea Gastrointestinal: Reports abdominal pain Endocrine: Reports palpitations Physical Exam Vital Signs: Last Vital Signs Temp 99.9 F 07/10/22 11:59 Pulse 133 H 07/10/22 11:59 Resp 20 07/10/22 11:59 BP 135/68 07/10/22 11:59 Pulse Ox 92 07/10/22 11:59 O2 Del Method 07/10/22 11:59 O2 Flow Rate 2 07/09/22 11:54 BMI result Body Mass Index 38.8 Const General: cooperative, comfortable, no acute distress, alert and awake Nutritional Appearance: obese Orientation/consciousness: patient oriented x3 Limitations: no limitations Neck Neck: Yes trachea midline, Yes supple and Yes no JVD Resp Effort & Inspection: normal respiratory effort Auscultation: clear to auscultation bilaterally Cardio Jugular venous distension: no JVD Rate: tachycardic Rhythm: regular rhythm Heart sounds: S1 normal heart sound present, S2 normal heart sound present, no click, no gallops, no murmurs and no rubs GI Auscultation: normal bowel sounds Neuro General: patient oriented x3 and no focal motor deficits Extrem General: Yes no clubbing, cyanosis or edema Objective Labs and Meds Result diagrams: 07/07/22 14:40 07/10/22 09:29 Lab results: Laboratory Results - last 24 hr 07/10/22 09:29 Sodium 141 Potassium 5.2 H Chloride 107 Carbon Dioxide 22 Anion Gap 17 BUN 46 H Creatinine 3.03 H Estim Creat Clear Calc 26.1 Estimated GFR 20 Random Glucose 148 H Calcium 8.4 Progress Note: A&P Assessment and plan (1) Atrial flutter with rapid ventricular response: Status: Acute Assessment and Plan: Persistent and incessant atrial flutter with rapid ventricular response not responsive to regular medical therapy with maximal Cardizem drip. Plan for synchronized cardioversion tomorrow. Urology input is appreciated. Will schedule for STEWART guided cardioversion. Discussed management with the patient. Need for STEWART as well as synchronized cardioversion was discussed. Risks, benefits, alternatives were discussed with the patient. He understands and agrees. Continue full oral anticoagulation. Renal function with slightly worsened creatinine. Please keep patient NPO Will continue to follow with you. Time Spent With Patient Time: Total time managing care of this patient today ____ minutes. Progress Note: Quality Stroke Does the patient have a stroke diagnosis?: No Procedures Date of Service Date of Service: 07/10/22
--- NOTE | 2022-07-10 15:14 | P.PNIM_ITS ---
Subjective Subjective Date of Service: 07/10/22 Interval History: persistent afib,Nephrolithiasis Review of Systems still has left sided flank pain says some improvement with current pain regimen , no nausea vomiting or fever or chills Physical Exam Vital Signs: Vital Signs: Last Vital Signs Temp 99.9 F 07/10/22 11:59 Pulse 133 H 07/10/22 11:59 Resp 20 07/10/22 11:59 BP 135/68 07/10/22 11:59 Pulse Ox 92 07/10/22 11:59 O2 Del Method 07/10/22 11:59 O2 Flow Rate 2 07/09/22 11:54 BMI result Body Mass Index 38.8 Appearance: Alert.? Oriented X3.? in pain. cvs: rrr, [id number] , no murmur res: clear to auscultation ,no rhonchii or wheezing abd: no rebound or guarding ,left flank pain, bs present. ext pulses present , no cyanosis . neuro: axo3 , nonfocal. Objective Data Active Medications Acetaminophen (Acetaminophen 325 Mg Tablet) 975 mg PO Q8H [facility] Last Admin: 07/10/22 09:09 Dose: 975 mg Documented By: CLAUDIA Apixaban (Apixaban 2.5 Mg Tablet) 2.5 mg PO BID [facility] Last Admin: 07/10/22 09:10 Dose: 2.5 mg Documented By: CLAUDIA Docusate Sodium (Docusate Sodium 100 Mg Capsule) 100 mg PO BID [facility] Last Admin: 07/10/22 09:10 Dose: 100 mg Documented By: CLAUDIA Diltiazem HCl 125 mg/ Sodium (Chloride) 125 mls @ 0 mls/hr IVCONT .Q0M [facility]; Protocol Last Titration: 07/10/22 05:06 Dose: 0 mg/hr, 0 mls/hr Documented By: SAVANNAH Levothyroxine Sodium (Levothyroxine Sodium 88 Mcg Tablet) 88 mcg PO DAILY [facility] Last Admin: 07/10/22 09:10 Dose: 88 mcg Documented By: CLAUDIA Lidocaine (Lidocaine 4 % Patch Adh..Patch) 1 patch TRANSDERMA DAILY [facility]; Protocol Last Admin: 07/10/22 09:10 Dose: 1 patch Documented By: CLAUDIA Metoprolol Tartrate (Metoprolol Tartrate 12.5 Mg Halftab) 12.5 mg PO QID [facility]; Protocol Last Admin: 07/10/22 12:19 Dose: 12.5 mg Documented By: CLAUDIA Morphine Sulfate (Morphine Sulfate 2 Mg/Ml Cartridge) 2 mg IVPUSH Q4H [facility]; Protocol Last Admin: 07/10/22 12:20 Dose: 2 mg Documented By: CLAUDIA Omeprazole (Omeprazole 20 Mg Capsule.Dr) 20 mg PO DAILY [facility] Last Admin: 07/10/22 09:10 Dose: 20 mg Documented By: CLAUDIA Oseltamivir Phosphate (Oseltamivir Phosphate 30 Mg Capsule) 30 mg PO Q24H [facility] Last Admin: 07/09/22 14:50 Dose: 30 mg Documented By: CLAUDIA Oxycodone HCl (Oxycodone Hcl Immed Release 5 Mg Tablet) 10 mg PO Q6H PRN PRN Reason: Pain, Mild (Pain Scale 1-3) Pharmacy Consult (Consult Rx Perform Med Rec) 1 each MISCELLANE ONCE PRN PRN Reason: Consult order Polyethylene Glycol (Polyethylene Glycol 3350 17 Gm Powd.Pack) 17 gm PO DAILY [facility] Last Admin: 07/10/22 09:12 Dose: 17 gm Documented By: CLAUDIA Pravastatin Sodium (Pravastatin Sodium 80 Mg Tablet) 80 mg PO BEDTIME [facility] Last Admin: 07/09/22 19:57 Dose: 80 mg Documented By: SAVANNAH Pyridoxine HCl (Pyridoxine Hcl (Vitamin B6) 50 Mg Tablet) 100 mg PO BEDTIME [facility] Last Admin: 07/09/22 19:57 Dose: 100 mg Documented By: SAVANNAH Senna (Sennosides 8.6 Mg Tablet) 17.2 mg PO BID [facility] Last Admin: 07/10/22 09:10 Dose: 17.2 mg Documented By: CLAUDIA Sodium Chloride (0.9 % Sodium Chloride Flush 3 Ml Syringe) 3 ml IVFLUSH QSHIFT [facility] Last Admin: 07/10/22 12:20 Dose: 3 ml Documented By: CLAUDIA Tamsulosin HCl (Tamsulosin Hcl 0.4 Mg Capsule) 0.8 mg PO BEDTIME [facility] Last Admin: 07/09/22 19:57 Dose: 0.8 mg Documented By: SAVANNAH Labs CBC & Chem 7: 07/07/22 14:40 07/10/22 09:29 Labs: Laboratory Results - last 24 hr 07/10/22 09:29 Anion Gap 17 Estim Creat Clear Calc 26.1 Estimated GFR 20 Random Glucose 148 H Calcium 8.4 Microbiology Microbiology Results: Microbiology 07/07/22 15:30 Blood Culture - Preliminary Blood - Venous No growth after 48 hours. 07/07/22 14:40 Blood Culture - Preliminary Blood - Venous No growth after 48 hours. 07/08/22 Unknown Urine Culture - Preliminary Urine Catheterized - Straight Catheter No growth to date. Assessment and Plan (1) Atrial fibrillation with rapid ventricular response: Status: Resolved (2) Ureteral stone with hydronephrosis: Status: Acute (3) Atrial fibrillation with RVR: Status: Acute (4) PRABHU (acute kidney injury): Status: Acute (5) CKD (chronic kidney disease): Status: Acute (6) Atrial flutter with rapid ventricular response: Status: Acute (7) Hyperkalemia: Status: Acute Plan 81-year-old male with past medical history of AFib status post ablation, hypertension, CKD, who presents the hospital in AFib with RVR prabhu on ckd( at least ckd3) due to possible uropathy: cr worseni hematuria sec to renal stones encouraged for po hydration, flomax. hyperkalemia -given loklema will add gentle hydration since creatinine worsening ,also patient needs to be npo past midninght pain control with iv morphine,oxycodone ,bowel regimen. urology eval( as per ed d/w urology -plan for urology stent). due to worsenin prabhu -also added nephrology eval. # Aflutter? with RVR hr persistently elevated, rhythm still in AFib Continue diltiazem drip started diet and eliquis d/w urology-patient's cardiac status takes precedence over goal to break up stones, as stent has been placed to treat the acute medical concern - obstructive uropathy as cause for acute renal failure. No procedures necessary for 4- 6 weeks if cardioversion needs to be don cardiology folowing # history of CHF ?No evidence of exacerbation hold diurtics due to prabhu and euvolemic ,will avoid fluids since has chf hx ,hold diuretics. # hypothyroidism continue levothyroxine # GERD ?Continue omeprazole Sleep apnea: cotninue cpap. Influenza B: seems asymptomatic ?unclear how long positive will check with patient if wants to try tamiflu . Morbid obesity:? Encouraged to lose weight. [facility] need:afib with rvr -need iv cardizem and po metoprolol,nephrolithasis -s/p ureteral stent, also renal function and electrolyte moniterin Time Spent With Patient Time: Total time managing care of this patient today ____ minutes. Quality Stroke Does the patient have a stroke diagnosis?: No VTE Prior VTE?: No VTE Risk Level:: Medical - moderate - high VTE Device Contraindication: N/A - Device Ordered VTE Drug Contraindication: N/A - Med Ordered
[2022-07-10] MEDS: Acetaminophen 1,000 MG/100 ML PIGGYBACK 400 MG IV ×2 (16:54→22:07)
[2022-07-10] MEDS: Oseltamivir Phosphate 30 MG CAPSULE PO (17:04)
[2022-07-10] MEDS: 0.9 % Sodium Chloride 1,000 ML 50 ML IVCONT (17:05)
[2022-07-10] MEDS: Sodium Zirconium Cyclosilicate 5 GM POWD.PACK PO (17:05)
[2022-07-10] MEDS: Pravastatin Sodium 80 MG TABLET PO (19:37)
[2022-07-10] MEDS: Pyridoxine HCl (Vitamin B6) 50 MG TABLET 100 MG PO (19:37)
[2022-07-10] MEDS: Tamsulosin HCL 0.4 MG CAPSULE 0.8 MG PO (19:37)
[2022-07-11] VITALS (17 sets, daily range): BP systolic 98–143; BP diastolic 38–71; PULSE 59–132; RESP 15–22; TEMP 36.1–37.1; O2SAT 93–100
[2022-07-11] MEDS: oxyCODONE HCl Immed Release 5 MG TABLET 10 MG PO (02:58)
[2022-07-11] MEDS: Acetaminophen 1,000 MG/100 ML PIGGYBACK 400 MG IV (03:52)
[2022-07-11] MEDS: Morphine Sulfate 2 MG/ML CARTRIDGE IVPUSH ×5 (05:03→20:14)
[2022-07-11 08:23] LABS: Anion Gap 14 (12-20); Blood Urea Nitrogen 53 mg/dL (9-16); Calcium 7.9 mg/dL (8.4-10.2); Carbon Dioxide 24 mmol/L (22-29); Chloride 106 mmol/L (96-108); Creatinine Clr Calc Pharmacy 25.1; Estimated Glomerular Filt Rate 19; Glucose Random 136 mg/dL (60-115); Potassium 5.3 mmol/L (3.3-5.1); Sodium 139 mmol/L (135-145)
--- NOTE | 2022-07-11 09:23 | ECG_ITS ---
Test Reason : chest pain Blood Pressure : / mmHG Vent. Rate : 074 BPM Atrial Rate : 074 BPM P-R Int : 230 ms QRS Dur : 094 ms QT Int : 388 ms P-R-T Axes : 055 -28 -12 degrees QTc Int : 430 ms Sinus rhythm with 1st degree A-V block with occasional Premature ventricular complexes Incomplete right bundle branch block Minimal voltage criteria for LVH, may be normal variant ( R in aVL ) Septal infarct (cited on or before 04-AUG-2021) Inferior infarct (cited on or before 04-AUG-2021) Abnormal ECG When compared with ECG of 07-JUL-2022 13:54, Rhythm change Referred By: Radha Segal Electronically Signed By:JOSE ENRIQUEZ
--- NOTE | 2022-07-11 09:48 | CA_ITS ---
Transesophageal Echocardiogram Patient (Last, First, Middle): Ramon Atkinson A Gender: Male Date of : 1940 Age: 82 Procedure Date: 07/11/2022 Procedure Type: Transesophageal Echocardiogram Location: [facility] [place] Height: 182.88 cm Weight: 286. kg BSA: 3.47 m2 Heart Rate: 127 bpm BP: 117 / 65 mmHg De Icer: SB Referring MD: Dante Briones MD Symptoms: Pre cardioversion Conclusion: ??? 1. No intracardiac thrombi, masses or vegetation 2. LV systolic function is mildly to moderately reduced 3. Biatrial enlargement 4. Normal cardiac valvular Doppler 5. [id number] atherosclerotic changes noted in the aorta Findings Procedure Information Contrast agent, definity, is being given per protocol without apparent complications. Consent was obtained prior to the procedure. Pre STEWART oral cavity was checked and revealed mild overcrowding. The adult 3D probe was passed with no difficulty. Left Ventricle Normal left ventricular cavity size. There is mildly increased left ventricular wall thickness. The left ventricular systolic function is mild to moderately decreased. The visually estimated ejection fraction is between 40-45%. Diastolic function is indeterminate on the basis of available data. There is no evidence of a mass in the left ventricle. Right Ventricle Mildly increased right ventricular cavity size. There is low normal right ventricular systolic function. Atria The left atrium is moderately dilated. There is lipomatous hypertrophy of the interatrial septum. There is no evidence of interatrial shunt by color Doppler. there is small formation seen with left atrial appendage as well as the left atrium [id number]. No masses or clots with the left atrial cavity. Left upper, right upper and right lower pulmonary in drain normally into the left atrium. Left atrial appendage will identify multiple views. There was suggestion of a filling defect but subsequent definity contrast rule out any presence of late for atrial thrombus. This most suggestive of pectinate muscle. Left atrial appendage ejection velocities preserved. The right atrium is moderately dilated. Right atrium is enlarged with no clots or masses seen in the right atrium. The IVC and SVC drain normally into the right atrium. Aortic Valve There is mild calcification of the aortic valve. There is mild thickening of the aortic valve. There is no aortic valve stenosis. There is no evidence of a mass on the aortic valve. There is mild aortic valve regurgitation. Mitral Valve There is mild anterior and posterior mitral leaflet thickening. There is trace mitral valve regurgitation. There is no mitral valve stenosis. Pulmonic Valve The pulmonic valve is likely normal. There is no pulmonic valve regurgitation. Tricuspid Valve Normal tricuspid valve structure. There is trace tricuspid valve regurgitation. Tricuspid regurgitation envelope is inadequate for calculation of right ventricular systolic pressure. Great Vessels Small plaque is seen in the ascending aorta, arch, and descending thoracic aorta. The visualized portions of the pulmonary artery and branches are normal. Pericardium/Pleural There is no evidence of pericardial effusion. Updated by Dante Briones on 01:39 PM with Status of Final Dante Briones MD electronically signed on 07/11/2022 1:39:37 PM with status of Final
--- NOTE | 2022-07-11 09:48 | MHC.SHP ---
Pre-Procedural Eval Section A Date of Service: 07/11/22 The patient is an INPATIENT: Yes Changes since office visit: Yes Cold of Flu in the past 2 weeks, Yes New Medical Problems, Yes Changes in Medication and Yes Patient answered all questions The History & Physical has been completed within 30 days and I have reviewed it.: Yes Section B Chief Complaint: PRABHU on CKD, Obstructive uropathy, Afib with RVR Allergies: Allergies Allergy/AdvReac Type Severity Reaction Status Date / Time ibuprofen [IBUPROFEN] Allergy Intermediate HIVES Verified 02/15/22 11:14 hydromorphone [From DILAUDID] AdvReac Intermediate ILEUS Verified 02/15/22 11:14 procaine [From Novocain] AdvReac Intermediate has no Verified 02/15/22 11:14 numbing effect-states monocain works narcotic pain meds AdvReac Intermediate does not Uncoded 02/15/22 11:14 relieve pain per patient Plan I have reviewed the history and physical and performed a pertinent physical examination on my patient. No changes have occurred unless specified. Time Spent With Patient Time: Total time managing care of this patient today ____ minutes.
[2022-07-11] MEDS: 0.9 % Sodium Chloride Flush 3 ML SYRINGE IVFLUSH ×2 (09:50→20:07)
[2022-07-11] MEDS: Lidocaine 4 % Patch ADH..PATCH 1 PATCH TRANSDERMA (09:54)
[2022-07-11] MEDS: polyethylene glycoL 3350 17 GM POWD.PACK PO (09:55)
[2022-07-11] MEDS: Sennosides 8.6 MG TABLET 17.2 MG PO ×2 (09:55→20:13)
[2022-07-11] MEDS: Docusate Sodium 100 MG CAPSULE PO ×2 (09:55→20:13)
[2022-07-11] MEDS: Omeprazole 20 MG CAPSULE.DR PO (09:56)
[2022-07-11] MEDS: Metoprolol Tartrate 12.5 MG HALFTAB PO ×3 (09:56→16:14)
[2022-07-11] MEDS: Levothyroxine Sodium 88 MCG TABLET PO (09:56)
[2022-07-11] MEDS: Apixaban 2.5 MG TABLET PO ×2 (09:56→20:13)
--- NOTE | 2022-07-11 10:09 | P.PNIM_ITS ---
Subjective Subjective Date of Service: 07/11/22 Interval History: persistent afib,Nephrolithiasis Review of Systems still has left sided flank pain or nausea, vomiting or fever or chills denies palpatation say pain left flank pain also somewhat improvin had 1 bm last evenin,passing gases Physical Exam Vital Signs: Vital Signs: Last Vital Signs Temp 97.3 F 07/11/22 07:19 Pulse 132 H 07/11/22 07:19 Resp 22 H 07/11/22 07:19 BP 120/71 07/11/22 07:19 Pulse Ox 95 07/11/22 07:19 O2 Del Method 07/11/22 07:19 O2 Flow Rate 2 07/11/22 03:42 BMI result Body Mass Index 38.8 Appearance: Alert.? Oriented X3.? in pain. cvs: rrr, [id number] , no murmur res: clear to auscultation ,no rhonchii or wheezing abd: no rebound or guarding ,left flank pain, bs present. ext pulses present , no cyanosis . neuro: axo3 , nonfocal. Objective Data Active Medications Apixaban (Apixaban 2.5 Mg Tablet) 2.5 mg PO BID [facility] Last Admin: 07/11/22 09:56 Dose: 2.5 mg Documented By: COLEEN Docusate Sodium (Docusate Sodium 100 Mg Capsule) 100 mg PO BID [facility] Last Admin: 07/11/22 09:55 Dose: 100 mg Documented By: COLEEN Diltiazem HCl 125 mg/ Sodium (Chloride) 125 mls @ 0 mls/hr IVCONT .Q0M [facility]; P rotocol Last Titration: 07/10/22 05:06 Dose: 0 mg/hr, 0 mls/hr Documented By: SAVANNAH Acetaminophen (Ofirmev) 1,000 mg in 100 mls @ 400 mls/hr IV Q6H [facility] Stop: 07/11/22 10:14 Last Infusion: 07/11/22 04:08 Dose: 0 mls/hr Documented By: YIFAN Sodium Chloride (Ns) 1,000 mls @ 50 mls/hr IVCONT .Q20H [facility] Last Admin: 07/10/22 17:05 Dose: 50 mls/hr Documented By: CLAUDIA Levothyroxine Sodium (Levothyroxine Sodium 88 Mcg Tablet) 88 mcg PO DAILY [facility] Last Admin: 07/11/22 09:56 Dose: 88 mcg Documented By: COLEEN Lidocaine (Lidocaine 4 % Patch Adh..Patch) 1 patch TRANSDERMA DAILY [facility]; Protocol Last Admin: 07/11/22 09:54 Dose: 1 patch Documented By: COLEEN Metoprolol Tartrate (Metoprolol Tartrate 12.5 Mg Halftab) 12.5 mg PO QID [facility]; Protocol Last Admin: 07/11/22 09:56 Dose: 12.5 mg Documented By: COLEEN Morphine Sulfate (Morphine Sulfate 2 Mg/Ml Cartridge) 2 mg IVPUSH Q4H [facility]; Protocol Last Admin: 07/11/22 09:56 Dose: 2 mg Documented By: COLEEN Omeprazole (Omeprazole 20 Mg Capsule.Dr) 20 mg PO DAILY [facility] Last Admin: 07/11/22 09:56 Dose: 20 mg Documented By: COLEEN Oseltamivir Phosphate (Oseltamivir Phosphate 30 Mg Capsule) 30 mg PO Q24H [facility] Last Admin: 07/10/22 17:04 Dose: 30 mg Documented By: CLAUDIA Oxycodone HCl (Oxycodone Hcl Immed Release 5 Mg Tablet) 10 mg PO Q6H PRN PRN Reason: Pain, Mild (Pain Scale 1-3) Last Admin: 07/11/22 02:58 Dose: 10 mg Documented By: YIFAN Pharmacy Consult (Consult Rx Perform Med Rec) 1 each MISCELLANE ONCE PRN PRN Reason: Consult order Polyethylene Glycol (Polyethylene Glycol 3350 17 Gm Powd.Pack) 17 gm PO DAILY [facility] Last Admin: 07/11/22 09:55 Dose: 17 gm Documented By: COLEEN Pravastatin Sodium (Pravastatin Sodium 80 Mg Tablet) 80 mg PO BEDTIME [facility] Last Admin: 07/10/22 19:37 Dose: 80 mg Documented By: YIFAN Pyridoxine HCl (Pyridoxine Hcl (Vitamin B6) 50 Mg Tablet) 100 mg PO BEDTIME [facility] Last Admin: 07/10/22 19:37 Dose: 100 mg Documented By: YIFAN Senna (Sennosides 8.6 Mg Tablet) 17.2 mg PO BID [facility] Last Admin: 07/11/22 09:55 Dose: 17.2 mg Documented By: COLEEN Sodium Chloride (0.9 % Sodium Chloride Flush 3 Ml Syringe) 3 ml IVFLUSH QSHIFT [facility] Last Admin: 07/11/22 09:50 Dose: 3 ml Documented By: COLEEN Tamsulosin HCl (Tamsulosin Hcl 0.4 Mg Capsule) 0.8 mg PO BEDTIME [facility] Last Admin: 07/10/22 19:37 Dose: 0.8 mg Documented By: YIFAN Labs CBC & Chem 7: 07/07/22 14:40 07/11/22 07:57 Labs: Laboratory Results - last 24 hr 07/11/22 07:57 Anion Gap 14 Estim Creat Clear Calc 25.1 Estimated GFR 19 Random Glucose 136 H Calcium 7.9 L Microbiology Microbiology Results: Microbiology 07/08/22 Unknown Urine Culture - Final Urine Catheterized - Straight Catheter No growth. Assessment and Plan (1) Atrial fibrillation with rapid ventricular response: Status: Resolved (2) Ureteral stone with hydronephrosis: Status: Acute (3) Atrial fibrillation with RVR: Status: Acute (4) PRABHU (acute kidney injury): Status: Acute (5) CKD (chronic kidney disease): Status: Acute (6) Atrial flutter with rapid ventricular response: Status: Acute (7) Hyperkalemia: Status: Acute Plan 81-year-old male with past medical history of AFib status post ablation, hypertension, CKD, who presents the hospital in AFib with RVR prabhu on ckd( at least ckd3) due to possible uropathy: cr similar to yesterday microhematuria (ua on admission)sec to renal stones hyperkalemia -given loklema will add iv gentle hydration since creatinine worsening , flomax.,also patient needs to be npo past midninght pain control with iv morphine,oxycodone ,bowel regimen. urology eval( as per ed d/w urology -s/p left side stent). due to worsenin prabhu ,added iv hydration, nephrology eval. # Aflutter? with RVR hr persistently elevated, rhythm still in AFib Continue diltiazem drip started diet and eliquis d/w urology-patient's cardiac status takes precedence over goal to break up stones, as stent has been placed to treat the acute medical concern - obstructive uropathy as cause for acute renal failure. No procedures necessary for 4- 6 weeks if cardioversion needs to be done. cardiology folowing-posssible cardioversion today ,npo # history of CHF ?No evidence of exacerbation hold diurtics due to prabhu and euvolemic ,will avoid fluids since has chf hx ,hold diuretics. # hypothyroidism continue levothyroxine # GERD ?Continue omeprazole Sleep apnea: cotninue cpap. Influenza B: seems asymptomatic ?unclear how long positive will check with patient if wants to try tamiflu . Morbid obesity:? Encouraged to lose weight. DVT prophylaxis:? [facility] devices ongoing hospitilisation need:afib with rvr -need iv cardizem and po metoprolol,nephrolithasis -s/p ureteral stent, also renal function and electrolyte moniterin Time Spent With Patient Time: Total time managing care of this patient today ____ minutes. Quality Stroke Does the patient have a stroke diagnosis?: No VTE Prior VTE?: No VTE Risk Level:: Medical - moderate - high VTE Device Contraindication: N/A - Device Ordered VTE Drug Contraindication: N/A - Med Ordered
[2022-07-11] MEDS: Amiodarone/Dextrose 150 MG/100 ML PLAST..BAG 600 MG IV (11:44)
--- NOTE | 2022-07-11 11:44 | HO.ANESPROP2 ---
[facility] Active Problems Active Problems: All Active Problems (Updated 07/10/22 @ 15:23 by Gilles Barnard MD) Hyperkalemia (Acute) Atrial flutter with rapid ventricular response (Acute) CKD (chronic kidney disease) (Acute) PRABHU (acute kidney injury) (Acute) Renal stone (Acute) Ureteral stone with hydronephrosis (Acute) Morbid obesity (Acute) Obstructed, uropathy (Acute) Acute on chronic renal failure (Acute) Atrial fibrillation with RVR (Acute) Influenza B (Acute) Murmur, heart (Acute) HTN (hypertension) (Acute) Sleep apnea (Acute) Renal stones (Acute) Elevated PSA (Acute) BPH loc w urin obs/LUTS (Acute) Past Medical History Medical History Atrial fibrillation BPH loc w urin obs/LUTS Chest pain Chronic renal disease, stage 3, moderately decreased glomerular filtration rate (GFR) between 30-59 mL/min/1.73 square meter COVID-19 vaccine series completed Elevated PSA Facet arthropathy, cervical GERD (gastroesophageal reflux disease) Heart failure HTN (hypertension) Hyperlipidemia On anticoagulant therapy Renal stones Sleep apnea Symptomatic cholelithiasis Thyroid disease Family History Family history of problems with anesthesia: No Surgical History Surgical History H/O colonoscopy History of surgery History of total replacement of both hip joints Hx of arthroscopic knee surgery Hx of cataract extraction Hx of cystoscopy S/P laparoscopic cholecystectomy History of Problems with Anesthesia: No Social History Social History Household Members: Spouse Housing: House Are you a primary career technical education teacher to a significant other at home: No Do you presently have visiting nurse or other home services: No Alcohol intake: never Patient Tobacco Use Status: Never used Tobacco Advance Directives Date on File: 07/08/22 service: No Current occupational status: retired Meds Allergies Allergy/AdvReac Type Severity Reaction Status Date / Time ibuprofen [IBUPROFEN] Allergy Intermediate HIVES Verified 02/15/22 11:14 hydromorphone [From DILAUDID] AdvReac Intermediate ILEUS Verified 02/15/22 11:14 procaine [From Novocain] AdvReac Intermediate has no Verified 02/15/22 11:14 numbing effect-states monocain works narcotic pain meds AdvReac Intermediate does not Uncoded 02/15/22 11:14 relieve pain per patient Active Medications: Current Medications Apixaban (Apixaban 2.5 Mg Tablet) 2.5 mg PO BID [facility] Last Admin: 07/11/22 09:56 Dose: 2.5 mg Docusate Sodium (Docusate Sodium 100 Mg Capsule) 100 mg PO BID [facility] Last Admin: 07/11/22 09:55 Dose: 100 mg Sodium Chloride (Ns) 1,000 mls @ 50 mls/hr IVCONT .Q20H [facility] Last Infusion: 07/11/22 10:10 Dose: 0 mls/hr Amiodarone HCl 900 mg/ Sodium (Chloride) 518 mls @ 34.533 mls/hr IVCONT .Q15H1M [facility]; Protocol Levothyroxine Sodium (Levothyroxine Sodium 88 Mcg Tablet) 88 mcg PO DAILY [facility] Last Admin: 07/11/22 09:56 Dose: 88 mcg Lidocaine (Lidocaine 4 % Patch Adh..Patch) 1 patch TRANSDERMA DAILY [facility]; Protocol Last Admin: 07/11/22 09:54 Dose: 1 patch Metoprolol Tartrate (Metoprolol Tartrate 12.5 Mg Halftab) 12.5 mg PO QID [facility]; Protocol Last Admin: 07/11/22 09:56 Dose: 12.5 mg Morphine Sulfate (Morphine Sulfate 2 Mg/Ml Cartridge) 2 mg IVPUSH Q4H [facility]; Protocol Last Admin: 07/11/22 09:56 Dose: 2 mg Omeprazole (Omeprazole 20 Mg Capsule.) 20 mg PO DAILY [facility] Last Admin: 07/11/22 09:56 Dose: 20 mg Oseltamivir Phosphate (Oseltamivir Phosphate 30 Mg Capsule) 30 mg PO Q24H [facility] Last Admin: 07/10/22 17:04 Dose: 30 mg Oxycodone HCl (Oxycodone Hcl Immed Release 5 Mg Tablet) 10 mg PO Q6H PRN PRN Reason: Pain, Mild (Pain Scale 1-3) Last Admin: 07/11/22 02:58 Dose: 10 mg Pharmacy Consult (Consult Rx Perform Med Rec) 1 each MISCELLANE ONCE PRN PRN Reason: Consult order Polyethylene Glycol (Polyethylene Glycol 3350 17 Gm Powd.Pack) 17 gm PO DAILY [facility] Last Admin: 07/11/22 09:55 Dose: 17 gm Pravastatin Sodium (Pravastatin Sodium 80 Mg Tablet) 80 mg PO BEDTIME [facility] Last Admin: 07/10/22 19:37 Dose: 80 mg Pyridoxine HCl (Pyridoxine Hcl (Vitamin B6) 50 Mg Tablet) 100 mg PO BEDTIME [facility] Last Admin: 07/10/22 19:37 Dose: 100 mg Senna (Sennosides 8.6 Mg Tablet) 17.2 mg PO BID [facility] Last Admin: 07/11/22 09:55 Dose: 17.2 mg Sodium Chloride (0.9 % Sodium Chloride Flush 3 Ml Syringe) 3 ml IVFLUSH QSHIFT [facility] Last Admin: 07/11/22 09:50 Dose: 3 ml Tamsulosin HCl (Tamsulosin Hcl 0.4 Mg Capsule) 0.8 mg PO BEDTIME [facility] Last Admin: 07/10/22 19:37 Dose: 0.8 mg Home Medications Medication Instructions Recorded Confirmed Last Taken Type levothyroxine 88 mcg tablet 88 mcg PO DAILY 11/12/20 07/07/22 07/07/22 History apixaban 5 mg tablet (Eliquis) 5 mg PO BID 02/09/21 07/07/22 07/03/22 History pravastatin 80 mg tablet 80 mg PO BEDTIME 02/09/21 07/07/22 07/06/22 History torsemide 20 mg tablet 20 mg PO Q5D PRN Edema 02/09/21 07/07/22 08/02/21 History pantoprazole 40 mg tablet,delayed 1 tab PO DAILY 09/08/21 07/07/22 07/07/22 History release amlodipine 2.5 mg tablet 2.5 mg PO DAILY 02/15/22 07/07/22 07/07/22 History amiodarone 200 mg tablet 100 mg PO Q2D 07/07/22 07/07/22 07/07/22 History Exam Exam Date and Time: July 11, 2022 114 Height,Weight and Vital Signs: Height 6 ft Weight 129.9 kg Last Vital Signs Temp 97.3 F 07/11/22 07:19 Pulse 132 H 07/11/22 07:19 Resp 22 H 07/11/22 07:19 BP 120/71 07/11/22 07:19 Pulse Ox 95 07/11/22 07:19 O2 Del Method 07/11/22 07:19 O2 Flow Rate 2 07/11/22 03:42 Pertinent Lab Results Pertinent Lab Results: Laboratory Tests 07/07/22 07/07/22 07/07/22 14:27 14:27 14:40 WBC 8.9 RBC 4.44 L Hgb 12.6 L Hct 39.2 L MCV 88.3 MCH 28.4 MCHC 32.1 RDW 14.1 Plt Count 165 MPV 9.5 Immature Gran % (Auto) 0.2 Neut % (Auto) 67.2 Lymph % (Auto) 18.9 L Gila % (Auto) 12.6 H Eos % (Auto) 0.8 Baso % (Auto) 0.3 Lymph # (Auto) 1.7 Gila # (Auto) 1.1 Eos # (Auto) 0.1 Baso # (Auto) 0.0 Abs Immat Gran (auto) 0.02 Absolute Neuts (auto) 6.0 Absolute Nucleated RBC 0.000 Nucleated RBC % (auto) 0.0 PT INR VBG pH VBG pCO2 VBG pO2 VBG HCO3 VBG O2 Saturation VBG Base Excess Sodium Potassium Chloride Carbon Dioxide Anion Gap BUN Creatinine Estim Creat Clear Calc Estimated GFR Random Glucose Lactic Acid Calcium Total Bilirubin AST ALT Alkaline Phosphatase Troponin I High Sens B-Natriuretic Peptide Total Protein Albumin TSH Urine Color Urine Appearance Urine pH Ur Specific Newcomb Urine Protein Urine Glucose (UA) Urine Ketones Urine Blood Urine Nitrite Ur Leukocyte Esterase Urine RBC Urine WBC Ur Squamous Epith Cells Urine Bacteria Hyaline Casts COVID-19 (DANNY) Negative COVID-19 Clin Com See Note Influenza Type A (VERNON) Negative Influenza Type B (VERNON) Positive A Influenza A & B Note See Note 07/07/22 07/07/22 07/07/22 14:40 14:40 14:40 WBC RBC Hgb Hct MCV MCH MCHC RDW Plt Count MPV Immature Gran % (Auto) Neut % (Auto) Lymph % (Auto) Gila % (Auto) Eos % (Auto) Baso % (Auto) Lymph # (Auto) Gila # (Auto) Eos # (Auto) Baso # (Auto) Abs Immat Gran (auto) Absolute Neuts (auto) Absolute Nucleated RBC Nucleated RBC % (auto) PT 12.9 INR 1.1 VBG pH VBG pCO2 VBG pO2 VBG HCO3 VBG O2 Saturation VBG Base Excess Sodium 142 Potassium 4.5 Chloride 107 Carbon Dioxide 26 Anion Gap 14 BUN 29 H Creatinine 2.51 H Estim Creat Clear Calc 30.5 Estimated GFR 25 Random Glucose 117 H Lactic Acid 0.8 Calcium 8.6 Total Bilirubin 0.8 AST 19 ALT 22 Alkaline Phosphatase 57 Troponin I High Sens B-Natriuretic Peptide Total Protein 6.1 L Albumin 3.4 L TSH 2.16 Urine Color Urine Appearance Urine pH Ur Specific Newcomb Urine Protein Urine Glucose (UA) Urine Ketones Urine Blood Urine Nitrite Ur Leukocyte Esterase Urine RBC Urine WBC Ur Squamous Epith Cells Urine Bacteria Hyaline Casts COVID-19 (DANNY) COVID-19 Clin Com Influenza Type A (VERNON) Influenza Type B (VERNON) Influenza A & B Note 07/07/22 07/07/22 07/07/22 14:40 14:40 14:50 WBC RBC Hgb Hct MCV MCH MCHC RDW Plt Count MPV Immature Gran % (Auto) Neut % (Auto) Lymph % (Auto) Gila % (Auto) Eos % (Auto) Baso % (Auto) Lymph # (Auto) Gila # (Auto) Eos # (Auto) Baso # (Auto) Abs Immat Gran (auto) Absolute Neuts (auto) Absolute Nucleated RBC Nucleated RBC % (auto) PT INR VBG pH 7.46 H VBG pCO2 34 VBG pO2 43 VBG HCO3 TNP VBG O2 Saturation 66.0 VBG Base Excess TNP Sodium Potassium Chloride Carbon Dioxide Anion Gap BUN Creatinine Estim Creat Clear Calc Estimated GFR Random Glucose Lactic Acid Calcium Total Bilirubin AST ALT Alkaline Phosphatase Troponin I High Sens 20.0 B-Natriuretic Peptide 119 H Total Protein Albumin TSH Urine Color Urine Appearance Urine pH Ur Specific Newcomb Urine Protein Urine Glucose (UA) Urine Ketones Urine Blood Urine Nitrite Ur Leukocyte Esterase Urine RBC Urine WBC Ur Squamous Epith Cells Urine Bacteria Hyaline Casts COVID-19 (DANNY) COVID-19 Clin Com Influenza Type A (VERNON) Influenza Type B (VERNON) Influenza A & B Note 07/07/22 07/08/22 07/08/22 22:39 08:57 14:15 WBC RBC Hgb Hct MCV MCH MCHC RDW Plt Count MPV Immature Gran % (Auto) Neut % (Auto) Lymph % (Auto) Gila % (Auto) Eos % (Auto) Baso % (Auto) Lymph # (Auto) Gila # (Auto) Eos # (Auto) Baso # (Auto) Abs Immat Gran (auto) Absolute Neuts (auto) Absolute Nucleated RBC Nucleated RBC % (auto) PT INR VBG pH VBG pCO2 VBG pO2 VBG HCO3 VBG O2 Saturation VBG Base Excess Sodium 140 Potassium 4.3 Chloride 106 Carbon Dioxide 27 Anion Gap 11 L BUN 30 H Creatinine 2.65 H Estim Creat Clear Calc 29.9 Estimated GFR 23 Random Glucose 118 H Lactic Acid 0.9 Calcium 8.5 Total Bilirubin AST ALT Alkaline Phosphatase Troponin I High Sens B-Natriuretic Peptide Total Protein Albumin TSH Urine Color Dark Yellow Urine Appearance Cloudy Urine pH 5.5 Ur Specific Newcomb 1.015 Urine Protein 100 (2+) H Urine Glucose (UA) Negative Urine Ketones Trace Urine Blood Large (3+) H Urine Nitrite Negative Ur Leukocyte Esterase Moderate (2+) H Urine RBC 11-20 H Urine WBC >50 H Ur Squamous Epith Cells 11-20 Urine Bacteria None Seen Hyaline Casts 0-2 COVID-19 (DANNY) COVID-19 Clin Com Influenza Type A (VERNON) Influenza Type B (VERNON) Influenza A & B Note 07/09/22 07/10/22 07/11/22 08:04 09:29 07:57 WBC RBC Hgb Hct MCV MCH MCHC RDW Plt Count MPV Immature Gran % (Auto) Neut % (Auto) Lymph % (Auto) Gila % (Auto) Eos % (Auto) Baso % (Auto) Lymph # (Auto) Gila # (Auto) Eos # (Auto) Baso # (Auto) Abs Immat Gran (auto) Absolute Neuts (auto) Absolute Nucleated RBC Nucleated RBC % (auto) PT INR VBG pH VBG pCO2 VBG pO2 VBG HCO3 VBG O2 Saturation VBG Base Excess Sodium 140 141 139 Potassium 5.3 H D 5.2 H 5.3 H Chloride 107 107 106 Carbon Dioxide 20 L 22 24 Anion Gap 18 17 14 BUN 32 H 46 H 53 H D Creatinine 2.45 H 3.03 H 3.15 H Estim Creat Clear Calc 32.3 26.1 25.1 Estimated GFR 25 20 19 Random Glucose 138 H 148 H 136 H Lactic Acid Calcium 8.5 8.4 7.9 L Total Bilirubin AST ALT Alkaline Phosphatase Troponin I High Sens B-Natriuretic Peptide Total Protein Albumin TSH Urine Color Urine Appearance Urine pH Ur Specific Newcomb Urine Protein Urine Glucose (UA) Urine Ketones Urine Blood Urine Nitrite Ur Leukocyte Esterase Urine RBC Urine WBC Ur Squamous Epith Cells Urine Bacteria Hyaline Casts COVID-19 (DANNY) COVID-19 Clin Com Influenza Type A (VERNON) Influenza Type B (VERNON) Influenza A & B Note Airway Mallampati Class: IV TM Dist: >3cm Neck ROM: Full Assessment and Plan Assessment Anesthesia Assessment: Anesthesia Plan Discussed and Chart Reviewed Final Anesthetic Review Family History of Problems with Anesthesia: No History of Problems with Anesthesia: No NPO: Yes ASA Class: III and Emergency Final Preanesthetic Review: No Changes in Pt Med Stat, Meds/Allgs Chart Reviewed, Consent Obtained/Reviewed and Anes Risks/Benef Reviewed Patient Risk: Intermediate Procedure Risk: Low Anesthetic Plan Anesthetic Plan: MAC: Disposition: Standard PACU
--- NOTE | 2022-07-11 11:45 | PM.EVENT ---
Event Note Date of Service: 07/11/22 Event Note: Chart reviewed patient not available in his room went for cardioversion per nursing Time Spent With Patient Time: Total time managing care of this patient today ____ minutes.
[2022-07-11] MEDS: Amiodarone HCL 900 MG in 0.9 % Sodium Chloride 500 ML 34.53 MG IVCONT (12:03)
--- NOTE | 2022-07-11 12:34 | PC.NURSE ---
TRANSPORTED ON BEATER ROOM SUPERVISOR TO IM. RECEIVING NURSE, CAREY, MADE AWARE OF AMIODARONE LOAD GTT DOSE GIVEN AND INITIATION TIME OF CONTINUOUS GTT WITH NEED TO TITRATE PER ORDERS. PATIENT TO RECEIVE POST PROCEDURE EKG AT BEDSIDE UPON TRANSFER
[2022-07-11] MEDS: 0.9 % Sodium Chloride 1,000 ML 50 ML IVCONT (13:16)
--- NOTE | 2022-07-11 13:16 | P.PNCAR_ITS ---
Cardioversion Procedure Note Cardioversion Date of Procedure: Today Ordering Provider: Myself Performing Provider: Myself Indication for Procedure: Insistent atrial flutter with rapid ventricular response Pre-Op Diagnosis: Same Post-Op Diagnosis: Same Performed with Transesophageal Echo: Yes STEWART findings (if STEWART Performed): No intracardiac thrombi or masses seen. See detailed report Consent: Verbal and Written consent was obtained from the patient before starting and confirming oral anticoagulation use. The patient was made aware of the risk of synchronized cardioversion including benefits, alternatives. Procedure: After consent obtained, cardioversion pads were attached anteroposterior configuration and the patient was sedated by the anesthesia team. Once adequate sedation achieved, patient was delivered 200 joules of biphasic synchronized energy in anteroposterior configuration. Converted briefly sinus rhythm and went again into atrial flutter with rapid ventricular response and another attempt at 200 joules was made. Patient remaining atrial flutter then broke into sinus rhythm. Complications: See anesthesia note Impression: Intermittent sinus rhythm with atrial flutter with PACs. Recommendations: 1. Start amiodarone drip to maintain rhythm. 2. Starting tomorrow may switch to 400 mg b.i.d. loading dose for 2 weeks follow ed by 200 mg daily 3. Continue full oral anticoagulation monitor renal function. If renal function improves after improvement of perfusion consider increasing Eliquis 5 mg b.i.d.. 4. Twelve lead EKG.
--- NOTE | 2022-07-11 13:18 | PM.PNCARD ---
Subjective Subjective Date of Service: 07/11/22 Principal diagnosis: Atrial flutter with rapid ventricular response Interval history: Patient underwent attempt at synchronized cardioversion x2 shocks after confirming no intracardiac thrombi or masses. Briefly converted to sinus rhythm then went and frequent PACs. Will be started on IV amiodarone drip. Tolerated overall procedure well with brief hypotension which is corrected by Review of Systems Review of Systems Yes Unobtainable due to mental status Physical Exam Vital Signs: Last Vital Signs Temp 97.4 F 07/11/22 12:35 Pulse 75 07/11/22 12:35 Resp 18 07/11/22 12:35 BP 111/58 L 07/11/22 12:35 Pulse Ox 97 07/11/22 12:35 O2 Del Method 07/11/22 12:35 O2 Flow Rate 2 07/11/22 12:35 BMI result Body Mass Index 38.8 Const General: cooperative, comfortable, no acute distress, alert and awake Nutritional Appearance: obese Orientation/consciousness: patient oriented x3 Limitations: no limitations Neck Neck: Yes trachea midline, Yes supple and Yes no JVD Resp Effort & Inspection: normal respiratory effort Auscultation: clear to auscultation bilaterally Cardio Jugular venous distension: no JVD Rate: regular rate Rhythm: abnormal rhythm with ectopic beats Heart sounds: S1 normal heart sound present, S2 normal heart sound present, no click, no gallops, no murmurs and no rubs GI Auscultation: normal bowel sounds Neuro General: patient oriented x3 and no focal motor deficits Extrem General: Yes no clubbing, cyanosis or edema Objective Labs and Meds Result diagrams: 07/07/22 14:40 07/11/22 07:57 Lab results: Laboratory Results - last 24 hr 07/11/22 07:57 Sodium 139 Potassium 5.3 H Chloride 106 Carbon Dioxide 24 Anion Gap 14 BUN 53 H D Creatinine 3.15 H Estim Creat Clear Calc 25.1 Estimated GFR 19 Random Glucose 136 H Calcium 7.9 L Progress Note: A&P Assessment and plan (1) Atrial flutter with rapid ventricular response: Status: Acute Assessment and Plan: Difficult control atrial flutter with rapid ventricular response with suggestion of LV systolic dysfunction by transesophageal echocardiogram, early onset without any overt heart failure. Patient was cardioverted x2. Remains to be irritable with frequent PACs also short burst of atrial tachycardia/flutter. Was started on IV amiodarone drip to maintain rhythm. I think the suggestion clinically of low stroke volume by both echocardiogram and Doppler measurements. I think he should benefit with maintenance of rhythm. Should also lead to improvement in his cardiac output and hopefully improvement in his renal function. Continue to trend BMP and BNP. Continue Eliquis therapy but if creatinine clearance improves, switch to 5 mg b.i.d.. Starting tomorrow may switch to 400 mg b.i.d. loading for 2 weeks followed by 200 mg daily. Importance of amiodarone therapy was discussed. Continue Eliquis uninterrupted for at least 4 weeks. Will continue to follow with you Time Spent With Patient Time: Total time managing care of this patient today ____ minutes. Progress Note: Quality Stroke Does the patient have a stroke diagnosis?: No Procedures Date of Service Date of Service: 07/11/22
[2022-07-11] MEDS: Oseltamivir Phosphate 30 MG CAPSULE PO (16:14)
[2022-07-11] MEDS: Pyridoxine HCl (Vitamin B6) 50 MG TABLET 100 MG PO (20:13)
[2022-07-11] MEDS: Tamsulosin HCL 0.4 MG CAPSULE 0.8 MG PO (20:13)
[2022-07-11] MEDS: Pravastatin Sodium 80 MG TABLET PO (20:13)
[2022-07-12 00:32] VITALS: RESP 20
[2022-07-12] MEDS: Morphine Sulfate 2 MG/ML CARTRIDGE IVPUSH ×5 (00:32→16:51)
[2022-07-12 03:32] VITALS: BP 114/62; PULSE 62; RESP 20; TEMP 37.2; O2SAT 96
[2022-07-12 06:36] LABS: Hematocrit 30.3 % (42.0-52.0); Hemoglobin 9.6 g/dl (14.0-18.0); Mean Corpuscular HGB Conc 31.7 g/dl (31.0-36.0); Mean Corpuscular Hemoglobin 28.5 pg (27.0-33.0); Mean Corpuscular Volume 89.9 fL (80.0-98.0); Mean Platelet Volume 9.7 fL (9.4-12.4); Platelet Count 145 X10*3/uL (160-400); Red Blood Count 3.37 X10*6/uL (4.60-5.80); Red Cell Distribution Width 15.1 % (11.0-16.0); White Blood Count 16.4 X10*3/uL (4.8-10.8)
[2022-07-12 06:55] LABS: Anion Gap 13 (12-20); Blood Urea Nitrogen 49 mg/dL (9-16); Calcium 7.7 mg/dL (8.4-10.2); Carbon Dioxide 26 mmol/L (22-29); Chloride 106 mmol/L (96-108); Creatinine Clr Calc Pharmacy 33.4; Estimated Glomerular Filt Rate 26; Glucose Random 110 mg/dL (60-115); Potassium 4.9 mmol/L (3.3-5.1); Sodium 140 mmol/L (135-145)
[2022-07-12 07:03] VITALS: BP 123/57; PULSE 58; RESP 18; TEMP 36.4; O2SAT 94
[2022-07-12] MEDS: Lidocaine 4 % Patch ADH..PATCH 1 PATCH TRANSDERMA (09:48)
[2022-07-12] MEDS: polyethylene glycoL 3350 17 GM POWD.PACK PO (09:48)
[2022-07-12] MEDS: Levothyroxine Sodium 88 MCG TABLET PO (09:49)
[2022-07-12] MEDS: Apixaban 2.5 MG TABLET PO (09:49)
[2022-07-12] MEDS: Omeprazole 20 MG CAPSULE.DR PO (09:49)
[2022-07-12] MEDS: Sennosides 8.6 MG TABLET 17.2 MG PO (09:49)
[2022-07-12] MEDS: Metoprolol Tartrate 12.5 MG HALFTAB PO ×3 (09:49→16:50)
[2022-07-12] MEDS: Docusate Sodium 100 MG CAPSULE PO (09:49)
[2022-07-12] MEDS: Amiodarone HCL 200 MG TABLET 400 MG PO (09:49)
[2022-07-12 10:37] LABS: B Type Natriuretic Peptide 51 pg/mL (<100)
[2022-07-12] MEDS: 0.9 % Sodium Chloride 1,000 ML 50 ML IVCONT (10:39)
--- NOTE | 2022-07-12 10:47 | PM.PNCARD ---
Subjective Subjective Date of Service: 07/12/22 Principal diagnosis: Atrial flutter with rapid ventricular response Interval history: He stating that he is getting some chest pressure this morning. Not able to state how much as the more bothersome pain is from the kidney stone. That is in the groin. He remains in sinus otherwise. Review of Systems Review of Systems Yes all other systems are reviewed and are negative Constitutional: Reports as per HPI Eyes: Reports as per HPI Reports as per HPI Cardiovascular: Reports as per HPI, Denies acrocyanosis, Denies cool extremities, Reports chest pain, Denies leg edema, Denies lightheadedness, Denies palpitations and Denies dyspnea Respiratory: Reports as per HPI, Reports no additional respiratory complaints and Denies dyspnea Gastrointestinal: Reports as per HPI, Reports no additional gastrointestinal complaints and Reports abdominal pain Genitourinary: Reports no additional male genitourinary complaints and Reports as per HPI Musculoskeletal: Reports no additional musculoskeletal complaints and Reports as per HPI Skin/Breast: Reports system reviewed and no additional complaints, except as docu Reports system reviewed and no additional complaints, except as documented and Reports as per HPI Psychiatric: Reports no additional psychiatric complaints and Reports as per HPI Endocrine: Reports no additional endocrine complaints, Reports as per HPI and Denies palpitations Hematologic/Lymphatic: Reports no additional hematologic/lymphatic complaints and Reports as per HPI Allergic/Immunologic: Reports no additional allergic/immunologic complaints and Reports as per HPI Physical Exam Vital Signs: Last Vital Signs Temp 97.6 F 07/12/22 07:03 Pulse 58 07/12/22 07:03 Resp 18 07/12/22 07:03 BP 123/57 L 07/12/22 07:03 Pulse Ox 94 07/12/22 07:03 O2 Del Method 07/12/22 07:03 O2 Flow Rate 2 07/11/22 12:35 BMI result Body Mass Index 38.8 Const General: comfortable and no acute distress Orientation/consciousness: patient oriented x3 HEENT Other: Unremarkable Head: Yes normal to inspection Neck Neck: Yes normal visual inspection Chest Chest palpation & inspection: normal inspection of the chest Resp Auscultation: clear to auscultation bilaterally Cardio Palpation: normal PMI Heart sounds: S1 normal heart sound present, S2 normal heart sound present, no gallops, no murmurs and no rubs GI Palpation (GI): Soft to palpation Back/Spine/Pelvis Other: unremarkable Skin General skin exam: no rashes or lesions noted Neuro General: patient oriented x3 Extrem General: Yes normal to inspection Psych Mental Status: mental status grossly normal Objective Labs and Meds Result diagrams: 07/12/22 06:26 07/12/22 06:26 Lab results: Laboratory Results - last 24 hr 07/12/22 07/12/22 07/12/22 06:26 06:26 09:53 WBC 16.4 H RBC 3.37 L D Hgb 9.6 L D Hct 30.3 L D MCV 89.9 MCH 28.5 MCHC 31.7 RDW 15.1 Plt Count 145 L MPV 9.7 Absolute Nucleated RBC 0.000 Nucleated RBC % (auto) 0.0 Sodium 140 Potassium 4.9 Chloride 106 Carbon Dioxide 26 Anion Gap 13 BUN 49 H Creatinine 2.37 H Estim Creat Clear Calc 33.4 Estimated GFR 26 Random Glucose 110 Calcium 7.7 L B-Natriuretic Peptide 51 Progress Note: A&P Assessment and plan (1) Atrial flutter with rapid ventricular response: Status: Acute Assessment and Plan: Remains in sinus rhythm on telemetry. Can stop amiodarone drip and change it to p.o.. Continue anticoagulation. Also on small dose of beta-blockers. (2) Chest pain: Status: Acute Assessment and Plan: He is describing chest pressure but not clear what it is. Need to do a stat EKG as well as troponins. This was discussed with the hospitalist MARKO at the bedside. Time Spent With Patient Time: Total time managing care of this patient today 40 minutes. Progress Note: Quality Stroke Does the patient have a stroke diagnosis?: No Procedures Date of Service Date of Service: 07/12/22
--- NOTE | 2022-07-12 10:48 | ECG_ITS ---
Test Reason : Chest pain Blood Pressure : / mmHG Vent. Rate : 061 BPM Atrial Rate : 061 BPM P-R Int : 232 ms QRS Dur : 092 ms QT Int : 444 ms P-R-T Axes : 058 -30 -25 degrees QTc Int : 446 ms Sinus rhythm with 1st degree A-V block Left axis deviation Incomplete right bundle branch block Minimal voltage criteria for LVH, may be normal variant ( R in aVL ) Inferior infarct (cited on or before 04-AUG-2021) Possible Anterior infarct (cited on or before 04-AUG-2021) Abnormal ECG When compared with ECG of 11-JUL-2022 12:27, No significant changes seen Referred By: Jose Enriquez Electronically Signed By:JOSE ENRIQUEZ
[2022-07-12 11:09] LABS: Troponin-I High Sensitivity 313.8 ng/L (<3.5-35.0)
--- NOTE | 2022-07-12 11:41 | PM.PNNEP ---
Subjective Subjective Date of Service: 07/12/22 Principal diagnosis: Atrial flutter with rapid ventricular response Interval history: seen and examined Physical Exam Vital Signs: Vital Signs: Last Vital Signs Temp 97.6 F 07/12/22 07:03 Pulse 58 07/12/22 07:03 Resp 18 07/12/22 07:03 BP 123/57 L 07/12/22 07:03 Pulse Ox 94 07/12/22 07:03 O2 Del Method 07/12/22 07:03 O2 Flow Rate 2 07/11/22 12:35 BMI result Body Mass Index 38.8 Objective Data Labs CBC & Chem 7: 07/12/22 06:26 07/12/22 06:26 Labs: Laboratory Results - last 24 hr 07/12/22 07/12/22 07/12/22 06:26 06:26 09:53 WBC 16.4 H RBC 3.37 L D Hgb 9.6 L D Hct 30.3 L D MCV 89.9 MCH 28.5 MCHC 31.7 RDW 15.1 Plt Count 145 L MPV 9.7 Absolute Nucleated RBC 0.000 Nucleated RBC % (auto) 0.0 Sodium 140 Potassium 4.9 Chloride 106 Carbon Dioxide 26 Anion Gap 13 BUN 49 H Creatinine 2.37 H Estim Creat Clear Calc 33.4 Estimated GFR 26 Random Glucose 110 Calcium 7.7 L Troponin I High Sens 313.8 H* D B-Natriuretic Peptide 07/12/22 09:53 WBC RBC Hgb Hct MCV MCH MCHC RDW Plt Count MPV Absolute Nucleated RBC Nucleated RBC % (auto) Sodium Potassium Chloride Carbon Dioxide Anion Gap BUN Creatinine Estim Creat Clear Calc Estimated GFR Random Glucose Calcium Troponin I High Sens B-Natriuretic Peptide 51 Microbiology Microbiology Results: Microbiology 07/08/22 Unknown Urine Catheterized - Straight Catheter Urine Culture - Final No growth. 07/07/22 15:30 Blood - Venous Blood Culture - Preliminary No growth after 48 hours. 07/07/22 14:40 Blood - Venous Blood Culture - Preliminary No growth after 48 hours. Procedures Date of Service Date of Service: 07/12/22 Assessment & Plan Assessment and plan (1) PRABHU (acute kidney injury): Status: Acute (2) Obstructed, uropathy: Status: Acute (3) Renal stones: Status: Acute (4) CKD (chronic kidney disease): Status: Acute Plan PRABHU due to renal hypoperfusion and obstructive uropathy h/o nephrolithiasis CT scan abdomen showed ?cluster of 3 left proximal ureteral stones measuring 0.9, 0.5, and 0.6 cm in size with moderate left hydroureteronephrosis s/p ureteral stent placement known CKD baseline Scr ~ 1.6 mg/dl sees Dr Jaeger REC IVF (discontinue once current bag completed) urology follow up follow kidney function and electrolytes Time Spent With Patient Time: Total time managing care of this patient today ____ minutes. Progress Note: Quality Stroke Does the patient have a stroke diagnosis?: No
[2022-07-12 11:46] VITALS: BP 128/58; PULSE 61; RESP 12; TEMP 36.8; O2SAT 93
--- NOTE | 2022-07-12 11:56 | HO.POSTANES ---
Post Anesthesia Evaluation Post Anesthesia Evaluation Vital Signs: Vital Signs Temp Pulse Resp BP Pulse Ox O2 Del Method 07/12/22 11:46 93 Room Air 07/12/22 11:46 98.3 F 61 12 128/58 L 93 Room Air 07/12/22 07:03 97.6 F 58 18 123/57 L 94 CPAP 07/12/22 03:32 98.9 F 62 20 114/62 96 CPAP 07/12/22 00:32 20 Anesthesia: Monitored Mental Status: Awake Pain Control: Satisfactory Nausea/Vomiting: None Hydration: Adequate Anesthesia-Related Issues: No Anes. Related Issues
--- NOTE | 2022-07-12 12:32 | P.EN_ITS ---
Event Note Date of Service: 07/12/22 Event Note: Patient has been having chest discomfort since this a.m.. EKG is unremarkable but elevated troponins. Not clear if it is primary or secondary NSTEMI. Will need diagnostic catheterization. Overall, difficult situation due to multiple ongoing medical issues including renal stones, influenza, renal insufficiency, atrial flutter post cardioversion yesterday. Discussed with [facility]/cardiology () and will transfer for further care. In the interim, IV morphine or Dilaudid for pain control with sublingual nitroglycerin. Switch Eliquis to IV heparin. Aspirin and statins. Discussed with hospitalist. Time Spent With Patient Time: Total time managing care of this patient today ____ minutes.
[2022-07-12] MEDS: Nitroglycerin 0.4 MG TAB.SUBL SUBLINGUAL (12:37)
[2022-07-12] MEDS: Aspirin Enteric Coated 325 MG TABLET.DR PO (12:53)
[2022-07-12 13:36] LABS: PTT Heparin Drip 30.5 SEC (53-77.9)
[2022-07-12 14:02] LABS: Troponin-I High Sensitivity 262.1 ng/L (<3.5-35.0)
[2022-07-12 16:00] VITALS: BP 144/66; PULSE 64; RESP 18; TEMP 37.1; O2SAT 93
--- NOTE | 2022-07-12 16:01 | PM.DS ---
DS: Providers Provider Date of Service: 07/12/22 Date of admission: 07/07/22 16:44 Date of discharge: 07/12/22 Primary care physician: Uday Sheehan MD Attending physician on admission: Gilles Barnard Consults: 07/07/22 16:00 Consult to Urology Stat Consulting Provider: Mone Sandoval Reason for consultation: Obstructing stone on the left Has provider been notified: Yes 07/07/22 17:17 Consult to Cardiology Routine Consulting Provider: [facility] Reason for consultation: aflutter with rvr Has provider been notified: No Consult to Urology Routine Consulting Provider: [facility] Reason for consultation: Obstructive uropathy, PRABHU, nephrolithiasis Has provider been notified: No 07/10/22 15:17 Consult to Nephrology Routine Consulting Provider: Billy Lopez Reason for consultation: prabhu on ckd Has provider been notified: No Attending physician on discharge: Dami [facility] Discharging clinician: Radha Segal DS: Diagnosis Discharge Diagnosis (1) PRABHU (acute kidney injury): Status: Acute (2) Obstructed, uropathy: Status: Acute (3) Renal stones: Status: Acute (4) CKD (chronic kidney disease): Status: Acute DS: Summary Hospital Course Hospital Course: HPI and admission by Dr. Barnard 07/07/22: Attending physician on admission: Gilles Barnard Chief Complaint: abd pain,tachycardia 82-year-old male with atrial fibrillation?with rvr on ch AC , nephrolithasis ,htn ,hlp,hx of chf (etiology unclear):? Patient admitted to the hospital because of left flank pain, also has tachycardia. Patient says that he is having symptom of hematuria started 2 weeks back with pain-than hematuria improved but patient still has pain with urination-he went to his PCP and who recommended to come to the ED, he is off Eliquis -as per the patient because he was told going to get urological procedure. Patient still is complaining of lot of flank pain, does not feel nauseated or vomiting or any headache . Denies any rhinorrhea or otorrhea or any sore throat or fever or chills or any sick contacts. Denies any chest pain or shortness of breath or palpitations. In ED:? WBC count is 8.9, hemoglobin is 12.6, hematocrit 39.2, platelet 165. BMP: BUN is 29 creatinine 2.5 His baseline creatinine is also around 1.6-2 range at least UA shows microscopic hematuria CT abdomen: CT/CT abdomen pelvis wo IV con IMPRESSION: 1.? Cluster of 3 left proximal ureteral stones measuring 0.9, 0.5, and 0.6 cm in size with moderate left hydroureteronephrosis and left perinephric stranding. 2.? Additional small nonobstructing left renal calculi, as described. patient is influeza B positive Hospital course: Patient admitted to the telemetry for atrial flutter with RVR, AKA on CKD stage 3 and obstructive uropathy. A flutter with RVR treated with diltiazem drip and evaluated by Cardiology. Initially treated with diltiazem drip. Underwent synchronized cardioversion on 07/11 with brief conversion to sinus rhythm but again went into atrial flutter with RVR and another attempt at synchronized cardioversion with 200 joules was made and atrial flutter broke into sinus rhythm. Patient was started on amiodarone drip to maintain rhythm and was switched to 400 mg amiodarone b.i.d. this morning recommended for 2 weeks followed by 200 mg daily. Underwent left ureteral stent placement for management of ureteral obstruction with moderate hydronephrosis. PRABHU improving following stent palcement, progressing to baseline with gentle IVF. However patient still with significant 10/10 left lower quadrant pain similar to preoperative pain noted on morning of discharge. Repeat CT scan of the abdomen/pelvis ordered. Patient also notes constipation ongoing for 4 days despite treatment with docusate, senna, and MiraLax. He is also noted to have elevated white blood cell count today which is new of 16.2. Denies any dysuria, hematuria, increased urinary frequency. No worsening cough, sob. Does endorse mild retrosternal chest pressure without any radiation that started this morning 07/12. Denies any shortness of breath, nausea, diaphoresis. Troponin elevated at 331, repeat at 262. Cardiology recommending transfer to [facility] for cardiac catheterization/further management of NSTEMI. NSTEMI -Pt reporting mild retrosternal chest pressure that started at 07:00 this morning (07/12) without any associated symptoms -EKG showing sinus rhythm with first-degree AV block, no significant change is seen when compared to prior EKGs. No ST or evidence of acute ischemia -initial troponin 331, 2hr repeat 262, 4hour repeat pending -evaluated by Cardiology recommending transferred to [facility] for cardiac catheterization. Recommending heparin drip. Last dose Eliquis given at 09:49 -treated with IV morphine, nitro 0.4 mg. No hypoxia. Will continue morphine, metoprolol, and nitro p.r.n. and transfer to [facility] -given 325 mg aspirin today. Continue baby aspirin daily -keep NPO after midnight Atrial flutter with RVR-rate now controlled -patient underwent synchronized cardioversion x2 on 07/11 with conversion to normal sinus rhythm -started on amiodarone drip. Transition to 400 mg p.o. b.i.d. amiodarone this morning. -continue amiodarone 400 mg b.i.d. x2 weeks, then transition to 200 mg daily -continue metoprolol Obstructive uropathy -CT abdomen/pelvis on admission with several obstructing ureteral stones with moderate left hydroureteronephrosis and left perinephric stranding -underwent left ureteral stent placement on 07/08 -urine culture negative -patient still reporting 10/10 left lower quadrant tenderness this morning 07/12. Repeat CT abdomen/pelvis ordered, but not performed Severe LLQ tenderness- ongoing -Abd softly distended without guarding/rebound -No relief following ureteral stent placement as above -WBC 16.4 today, no other SIRS criteria -repeat abdominal pelvis CT ordered, but not yet performed -no BM x4 days. Has been getting MiraLax, docusate, senna. No nausea/vomiting -morphine p.r.n. Influenza B -symptomatic management -has received 4 doses Tamiflu 30 mg daily, next dose due 07/13 @ 4pm -CXR 07/12 negative for acute pulmonary abnormality prabhu on ckd( at least ckd3) due to possible uropathy- improving -Gentle IVF -Cr 2.37 today (baseline 1.66 11/28) -Urology following history of CHF -?No evidence of exacerbation, BNP 51 this morning, clinically euvolemic hypothyroidism continue levothyroxine # GERD ?Continue omeprazole Sleep apnea: cotninue cpap. Obesity- Encouraged to lose weight. Status at Discharge Functional status at discharge: independent ambulation Overall status at discharge: patient is not back to baseline Time Spent with Patient Time attestation: Total time managing care of this patient today 50 minutes. Discharge coordination time: Greater than 30 minutes Quality: Safe Use of Opioids Does Pt have an Active Cancer Diagnosis on the Problem List?: No Quality: Stroke Does the patient have a stroke diagnosis?: No Physical Exam Vital Signs: Vital Signs: Last Vital Signs Temp 98.3 F 07/12/22 11:46 Pulse 61 07/12/22 11:46 Resp 12 07/12/22 11:46 BP 128/58 L 07/12/22 11:46 Pulse Ox 93 07/12/22 11:46 O2 Del Method 07/12/22 11:46 O2 Flow Rate 2 07/11/22 12:35 BMI result Body Mass Index 38.8 Constitutional - Awake and Alert, No apparent distress Eyes - PERRLA, EOMI Cardiovascular - S1S2, RRR, No edema Respiratory - Normal lung expansion, Normal respiratory effort, No respiratory distress, CTA bilaterally Gastrointestinal - LLQ ttp without guarding or rebound, softly distended. +BS - No CVA tenderness Extremities - no calf tenderness bilaterally, no swelling Skin - Warm/Dry Neurological - Alert & oriented x3 Psychological - Appropriate affect DS: Data Data Completed and Pending Completed studies during hospitalization [Text1]: Procedures Mormon of Cardiac Rhythm, Single (08/03/21) Labs on day of discharge: Laboratory Results - last 24 hr 07/12/22 07/12/22 07/12/22 06:26 06:26 09:53 WBC 16.4 H RBC 3.37 L D Hgb 9.6 L D Hct 30.3 L D MCV 89.9 MCH 28.5 MCHC 31.7 RDW 15.1 Plt Count 145 L MPV 9.7 Absolute Nucleated RBC 0.000 Nucleated RBC % (auto) 0.0 aPTT Heparin Protocol Sodium 140 Potassium 4.9 Chloride 106 Carbon Dioxide 26 Anion Gap 13 BUN 49 H Creatinine 2.37 H Estim Creat Clear Calc 33.4 Estimated GFR 26 Random Glucose 110 Calcium 7.7 L Troponin I High Sens 313.8 H* D B-Natriuretic Peptide 07/12/22 07/12/22 07/12/22 09:53 13:06 13:06 WBC RBC Hgb Hct MCV MCH MCHC RDW Plt Count MPV Absolute Nucleated RBC Nucleated RBC % (auto) aPTT Heparin Protocol 30.5 L Sodium Potassium Chloride Carbon Dioxide Anion Gap BUN Creatinine Estim Creat Clear Calc Estimated GFR Random Glucose Calcium Troponin I High Sens 262.1 H* D B-Natriuretic Peptide 51 Preliminary micro results at discharge 07/07/22 15:30 Blood Culture - Preliminary Blood - Venous No growth after 48 hours. 07/07/22 14:40 Blood Culture - Preliminary Blood - Venous No growth after 48 hours. Discharge Plan Discharge Anticipated Discharge Date/Time: 07/12/22 15:47 Patient Disposition: Xfer Acute Care Hospital Discharge Diagnosis: NSTEMI, aflutter with rvr, obstructive uropathy Referrals: Uday Sheehan MD [Primary Care Provider] - 1 Week Discharge Medications: New morphine 2 mg/mL Syringe 2 mg IVPUSH Q4H Qty: 10 0RF Protocol: Hold for RR < HOLD and contact provider for RR < (bpm): 12 Rx Instructions: Partial Fill upon patient request. oxycodone 5 mg Tablet 10 mg PO Q6H PRN (Reason: Pain, Mild (Pain Scale 1-3)) Qty: 10 0RF Rx Instructions: Partial Fill upon patient request. oseltamivir 30 mg Capsule 30 mg PO Q24H Qty: 1 0RF tamsulosin 0.4 mg Capsule 0.8 mg PO BEDTIME Qty: 1 0RF docusate sodium 100 mg Capsule 100 mg PO BID Qty: 1 0RF polyethylene glycol 3350 17 gram Powder In Packet 17 g PO DAILY Qty: 14 0RF aspirin 81 mg Tablet,Delayed Release (Dr/Ec) 81 mg PO DAILY Qty: 1 0RF sennosides [Senna Lax] 8.6 mg Tablet 17.2 mg PO BID Qty: 1 0RF amiodarone 200 mg Tablet 400 mg PO BID Qty: 1 0RF Continued pantoprazole 40 mg tablet,delayed release (DR/EC) 1 tab PO DAILY levothyroxine 88 mcg tablet 88 mcg PO DAILY pravastatin 80 mg tablet 80 mg PO BEDTIME Eliquis 5 mg tablet 5 mg PO BID Hold Instructions: Resume on 03/05/21. torsemide 20 mg tablet 20 mg PO Q5D PRN (Reason: Edema) amlodipine 2.5 mg tablet 2.5 mg PO DAILY pyridoxine (vitamin B6) 100 mg tablet 100 mg PO DAILY 90 Days Qty: 90 1RF Discontinued amiodarone 200 mg tablet 100 mg PO Q2D Diet: Low fat, low cholesterol Activity on Discharge: As tolerated Stand Alone Forms: Patient Portal Discharge page Care Plan Goals: Transfer to tertiary care facility for cardiac catheterization and further management of NSTEMI Further investigate etiology of left lower quadrant pain Health Concerns: NSTEMI Atrial flutter with RVR Chronic constipation Obstructive uropathy s/p ureteral stent placement on 07/08 Plan of Treatment: NSTEMI -transferred to [facility] for cardiac catheterization -keep NPO after midnight for cardiac catheterization in the morning -plan discussed with Dr. Leavitt in Cardiology -heparin per protocol 12 hours after last dose of Eliquis -continue aspirin, nitro p.r.n., morphine p.r.n. Atrial flutter with RVR-rate now controlled -continue amiodarone 400 mg twice daily per cardiology -continue metoprolol Influenza B -Continue Tamiflu Obstructive uropathy s/p ureteral stent placement on 07/08 -still with 10/10 left lower quadrant pain as well as constipation. CT abdomen/pelvis results pending Assessment: As above
--- NOTE | 2022-07-12 16:25 | PM.DS ---
DS: Providers Provider Date of Service: 07/12/22 Date of admission: 07/07/22 16:44 Date of discharge: 07/12/22 Primary care physician: Uday Sheehan MD Attending physician on admission: Gilles Barnard Consults: 07/07/22 16:00 Consult to Urology Stat Consulting Provider: Mone Sandoval Reason for consultation: Obstructing stone on the left Has provider been notified: Yes 07/07/22 17:17 Consult to Cardiology Routine Consulting Provider: [facility] Cardiovascular Services Reason for consultation: aflutter with rvr Has provider been notified: No Consult to Urology Routine Consulting Provider: [facility] Urology Services Reason for consultation: Obstructive uropathy, PRABHU, nephrolithiasis Has provider been notified: No 07/10/22 15:17 Consult to Nephrology Routine Consulting Provider: Billy Lopez Reason for consultation: prabhu on ckd Has provider been notified: No Attending physician on discharge: Dami [facility] Discharging clinician: Radha Segal DS: Transfer Hospital Acceptance Reason for Transfer: NSTEMI Name of Facility: [facility] Accepting Provider: Merlyn Nicole NP DS: Diagnosis Discharge Diagnosis (1) PRABHU (acute kidney injury): Status: Acute (2) Obstructed, uropathy: Status: Acute (3) Renal stones: Status: Acute (4) NSTEMI (non-ST elevated myocardial infarction): Status: Acute (5) Atrial flutter with rapid ventricular response: Status: Acute (6) LLQ abdominal pain: Status: Acute DS: Summary Hospital Course Hospital Course: HPI and admission by Dr. Barnard 07/07/22: Attending physician on admission: Gilles Barnard Chief Complaint: abd pain,tachycardia 82-year-old male with atrial fibrillation?with rvr on ch AC , nephrolithasis ,htn ,hlp,hx of chf (etiology unclear):? Patient admitted to the hospital because of left flank pain, also has tachycardia. Patient says that he is having symptom of hematuria started 2 weeks back with pain-than hematuria improved but patient still has pain with urination-he went to his PCP and who recommended to come to the ED, he is off Eliquis -as per the patient because he was told going to get urological procedure. Patient still is complaining of lot of flank pain, does not feel nauseated or vomiting or any headache . Denies any rhinorrhea or otorrhea or any sore throat or fever or chills or any sick contacts. Denies any chest pain or shortness of breath or palpitations. In ED:? WBC count is 8.9, hemoglobin is 12.6, hematocrit 39.2, platelet 165. BMP: BUN is 29 creatinine 2.5 His baseline creatinine is also around 1.6-2 range at least UA shows microscopic hematuria CT abdomen: CT/CT abdomen pelvis wo IV con IMPRESSION: 1.? Cluster of 3 left proximal ureteral stones measuring 0.9, 0.5, and 0.6 cm in size with moderate left hydroureteronephrosis and left perinephric stranding. 2.? Additional small nonobstructing left renal calculi, as described. patient is influeza B positive Hospital course: Patient admitted to the telemetry for atrial flutter with RVR, AKA on CKD stage 3 and obstructive uropathy. A flutter with RVR treated with diltiazem drip and evaluated by Cardiology. Initially treated with diltiazem drip. Underwent synchronized cardioversion on 07/11 with brief conversion to sinus rhythm but again went into atrial flutter with RVR and another attempt at synchronized cardioversion with 200 joules was made and atrial flutter broke into sinus rhythm. Patient was started on amiodarone drip to maintain rhythm and was switched to 400 mg amiodarone b.i.d. this morning recommended for 2 weeks followed by 200 mg daily. Underwent left ureteral stent placement for management of ureteral obstruction with moderate hydronephrosis. PRABHU improving following stent palcement, progressing to baseline with gentle IVF. However patient still with significant 10/10 left lower quadrant pain similar to preoperative pain noted on morning of discharge. Repeat CT scan of the abdomen/pelvis ordered. Patient also notes constipation ongoing for 4 days despite treatment with docusate, senna, and MiraLax. He is also noted to have elevated white blood cell count today which is new of 16.2. Denies any dysuria, hematuria, increased urinary frequency. No worsening cough, sob. Does endorse mild retrosternal chest pressure without any radiation that started this morning 1/3. Denies any shortness of breath, nausea, diaphoresis. Troponin elevated at 331, repeat at 262. Cardiology recommending transfer to [facility] for cardiac catheterization/further management of NSTEMI. NSTEMI -Pt reporting mild retrosternal chest pressure that started at 07:00 this morning (07/12) without any associated symptoms -EKG showing sinus rhythm with first-degree AV block, no significant change is seen when compared to prior EKGs. No ST or evidence of acute ischemia -initial troponin 331, 2hr repeat 262, 4hour repeat pending -evaluated by Cardiology recommending transferred to [facility] for cardiac catheterization. Recommending heparin drip. Last dose Eliquis given at 09:49 -treated with IV morphine, nitro 0.4 mg. No hypoxia. Will continue morphine, metoprolol, and nitro p.r.n. and transfer to [facility] -given 325 mg aspirin today. Continue baby aspirin daily -keep NPO after midnight Atrial flutter with RVR-rate now controlled -patient underwent synchronized cardioversion x2 on 07/11 with conversion to normal sinus rhythm -started on amiodarone drip. Transition to 400 mg p.o. b.i.d. amiodarone this morning. -continue amiodarone 400 mg b.i.d. x2 weeks, then transition to 200 mg daily -continue metoprolol Obstructive uropathy -CT abdomen/pelvis on admission with several obstructing ureteral stones with moderate left hydroureteronephrosis and left perinephric stranding -underwent left ureteral stent placement on 07/08 -urine culture negative -patient still reporting 10/10 left lower quadrant tenderness this morning 07/12. Repeat CT abdomen/pelvis ordered, but not performed Severe LLQ tenderness- ongoing -Abd softly distended without guarding/rebound -No relief following ureteral stent placement as above -WBC 16.4 today, no other SIRS criteria -repeat abdominal pelvis CT ordered, but not yet performed -no BM x4 days. Has been getting MiraLax, docusate, senna. No nausea/vomiting -morphine p.r.n. Influenza B -symptomatic management -has received 4 doses Tamiflu 30 mg daily, next dose due 07/13 @ 4pm -CXR 07/12 negative for acute pulmonary abnormality prabhu on ckd( at least ckd3) due to possible uropathy- improving -Gentle IVF -Cr 2.37 today (baseline 1.66 11/28) -Urology following history of CHF -?No evidence of exacerbation, BNP 51 this morning, clinically euvolemic hypothyroidism continue levothyroxine # GERD ?Continue omeprazole Sleep apnea: cotninue cpap. Obesity- Encouraged to lose weight. Time Spent with Patient Time attestation: Total time managing care of this patient today ____ minutes. Discharge coordination time: Greater than 30 minutes Quality: Safe Use of Opioids Does Pt have an Active Cancer Diagnosis on the Problem List?: No Quality: Stroke Does the patient have a stroke diagnosis?: No Physical Exam Vital Signs: Vital Signs: Last Vital Signs Temp 98.3 F 07/12/22 11:46 Pulse 61 07/12/22 11:46 Resp 12 07/12/22 11:46 BP 128/58 L 07/12/22 11:46 Pulse Ox 93 07/12/22 11:46 O2 Del Method 07/12/22 11:46 O2 Flow Rate 2 07/11/22 12:35 BMI result Body Mass Index 38.8 Constitutional - Awake and Alert, No apparent distress Eyes - PERRLA, EOMI Cardiovascular - S1S2, RRR, No edema Respiratory - Normal lung expansion, Normal respiratory effort, No respiratory distress, CTA bilaterally Gastrointestinal - LLQ ttp without guarding or rebound, softly distended. +BS - No CVA tenderness Extremities - no calf tenderness bilaterally, no swelling Skin - Warm/Dry Neurological - Alert & oriented x3 Psychological - Appropriate affect DS: Data Data Completed and Pending Completed studies during hospitalization [Text1]: Procedures [facility] of Cardiac Rhythm, Single (08/03/21) Labs on day of discharge: Laboratory Results - last 24 hr 07/12/22 07/12/22 07/12/22 06:26 06:26 09:53 WBC 16.4 H RBC 3.37 L D Hgb 9.6 L D Hct 30.3 L D MCV 89.9 MCH 28.5 MCHC 31.7 RDW 15.1 Plt Count 145 L MPV 9.7 Absolute Nucleated RBC 0.000 Nucleated RBC % (auto) 0.0 aPTT Heparin Protocol Sodium 140 Potassium 4.9 Chloride 106 Carbon Dioxide 26 Anion Gap 13 BUN 49 H Creatinine 2.37 H Estim Creat Clear Calc 33.4 Estimated GFR 26 Random Glucose 110 Calcium 7.7 L Troponin I High Sens 313.8 H* D B-Natriuretic Peptide 07/12/22 07/12/2223 09:53 13:06 13:06 WBC RBC Hgb Hct MCV MCH MCHC RDW Plt Count MPV Absolute Nucleated RBC Nucleated RBC % (auto) aPTT Heparin Protocol 30.5 L Sodium Potassium Chloride Carbon Dioxide Anion Gap BUN Creatinine Estim Creat Clear Calc Estimated GFR Random Glucose Calcium Troponin I High Sens 262.1 H* D B-Natriuretic Peptide 51 Preliminary micro results at discharge 07/07/22 15:30 Blood Culture - Preliminary Blood - Venous No growth after 48 hours. 07/07/22 14:40 Blood Culture - Preliminary Blood - Venous No growth after 48 hours. Discharge Plan Discharge Anticipated Discharge Date/Time: 07/12/22 15:47 Patient Disposition: Xfer Acute Care Hospital Discharge Diagnosis: NSTEMI, aflutter with rvr, obstructive uropathy Referrals: Uday Sheehan MD [Primary Care Provider] - 1 Week Discharge Medications: New morphine 2 mg/mL Syringe 2 mg IVPUSH Q4H Qty: 10 0RF Protocol: Hold for RR < HOLD and contact provider for RR < (bpm): 12 Rx Instructions: Partial Fill upon patient request. oxycodone 5 mg Tablet 10 mg PO Q6H PRN (Reason: Pain, Mild (Pain Scale 1-3)) Qty: 10 0RF Rx Instructions: Partial Fill upon patient request. oseltamivir 30 mg Capsule 30 mg PO Q24H Qty: 1 0RF tamsulosin 0.4 mg Capsule 0.8 mg PO BEDTIME Qty: 1 0RF docusate sodium 100 mg Capsule 100 mg PO BID Qty: 1 0RF polyethylene glycol 3350 17 gram Powder In Packet 17 g PO DAILY Qty: 14 0RF aspirin 81 mg Tablet,Delayed Release (Dr/Ec) 81 mg PO DAILY Qty: 1 0RF sennosides [Senna Lax] 8.6 mg Tablet 17.2 mg PO BID Qty: 1 0RF amiodarone 200 mg Tablet 400 mg PO BID Qty: 1 0RF Continued pantoprazole 40 mg tablet,delayed release (DR/EC) 1 tab PO DAILY levothyroxine 88 mcg tablet 88 mcg PO DAILY pravastatin 80 mg tablet 80 mg PO BEDTIME Eliquis 5 mg tablet 5 mg PO BID Hold Instructions: Resume on 03/05/21. torsemide 20 mg tablet 20 mg PO Q5D PRN (Reason: Edema) amlodipine 2.5 mg tablet 2.5 mg PO DAILY pyridoxine (vitamin B6) 100 mg tablet 100 mg PO DAILY 90 Days Qty: 90 1RF Discontinued amiodarone 200 mg tablet 100 mg PO Q2D Diet: Low fat, low cholesterol Activity on Discharge: As tolerated Stand Alone Forms: Patient Portal Discharge page Care Plan Goals: Transfer to tertiary care facility for cardiac catheterization and further management of NSTEMI Further investigate etiology of left lower quadrant pain Health Concerns: NSTEMI Atrial flutter with RVR Chronic constipation Obstructive uropathy s/p ureteral stent placement on 07/08 Plan of Treatment: NSTEMI -transferred to [facility] for cardiac catheterization -keep NPO after midnight for cardiac catheterization in the morning -plan discussed with Dr. Leavitt in Cardiology -heparin per protocol 12 hours after last dose of Eliquis -continue aspirin, nitro p.r.n., morphine p.r.n. Atrial flutter with RVR-rate now controlled -continue amiodarone 400 mg twice daily per cardiology -continue metoprolol Influenza B -Continue Tamiflu Obstructive uropathy s/p ureteral stent placement on 07/08 -still with 10/10 left lower quadrant pain as well as constipation. CT abdomen/pelvis results pending Assessment: As above
[2022-07-12] MEDS: Oseltamivir Phosphate 30 MG CAPSULE PO (16:50)
[2022-07-12 17:07] LABS: Troponin-I High Sensitivity 263.6 ng/L (<3.5-35.0)
== END 2022-07-12 05:20 | disposition short-term general hospital (02) | DRG 659 ==
LOC: HO.ED 15:59 → HO.EDOVER 16:49 → HO.IMC 22:54
PROVIDERS: Internal Medicine; Internal Medicine Cardiovascular Disease; Urology; Admitting Provider Internal Medicine; Emergency Provider Student in an Organized Health Care Education/Training Program; PCP Internal Medicine; Visit Provider Physician Assistant
PROC: 0T778DZ Dilation of Left Ureter with Intraluminal Device, Via Natural or Artificial Opening Endoscopic (ICD-10-PCS; principal; 2022-07-08 16:00)
PROC: 5A2204Z Restoration of Cardiac Rhythm, Single (ICD-10-PCS; CPT 93312; principal; 2022-07-11 10:00)
PROC: 5A2204Z Restoration of Cardiac Rhythm, Single (ICD-10-PCS; 2022-07-11 10:00)
DX: N13.2 Hydronephrosis with renal and ureteral calculous obstruction (principal); I21.3 ST elevation (STEMI) myocardial infarction of unspecified site; I48.92 Unspecified atrial flutter; I25.2 Old myocardial infarction; E78.5 Hyperlipidemia, unspecified; E66.01 Morbid (severe) obesity due to excess calories; I12.9 Hypertensive chronic kidney disease with stage 1 through stage 4 chronic kidney disease, or unspecified chronic kidney disease; J10.1 Influenza due to other identified influenza virus with other respiratory manifestations; Z68.38 Body mass index [BMI] 38.0-38.9, adult; G47.30 Sleep apnea, unspecified; E87.5 Hyperkalemia; N18.30 Chronic kidney disease, stage 3 unspecified; Z91.14 Patient's other noncompliance with medication regimen; Z88.5 Allergy status to narcotic agent; Z88.6 Allergy status to analgesic agent; Z79.01 Long term (current) use of anticoagulants; Z79.82 Long term (current) use of aspirin; Z79.890 Hormone replacement therapy; Z79.899 Other long term (current) drug therapy
CPT/HCPCS: 36415; 71045; 74018; 74176; 80048; 80053; 81001; 82803; 83605; 83880; 84443; 84484; 85025; 85027; 85610; 85730; 87040; 87086; 87502; 87635; 92960; 93005; 94660; 99285; J0131; J0282; J0283; J0690; J1100; J1160; J2270; J2370; J2405; J3010; Q9957; Q9967

== ENCOUNTER 2022-07-28 12:55 | Outpatient (REF) | payer MEDICARE, SELFPAY | END 2022-07-28 12:56 | disposition home or self-care (01) | LOC: HO.10HDL 12:55 | PROVIDERS: Visit Provider Internal Medicine | DX: Z13.89 Encounter for screening for other disorder (principal) ==

== ENCOUNTER 2022-09-08 11:21 | Outpatient (REF) | payer MEDICARE, SELFPAY ==
[2022-09-08 14:03] LABS: Appearance Urine Cloudy; Color Urine BROWN; Glucose Urine UA Negative (Negative); Leukocyte Esterase Urine Small (1+) (Negative); PH 6.5 (5.0-9.0); Specific Gravity - Urine 1.025 (1.005-1.025); UMIC TRIGGER UACC YES; Urine Blood Large (3+) (Negative)
[2022-09-08 14:20] LABS: RBC Urine >20 /HPF (0-2); Squamous Epithelial Cell Urine 0-2 /HPF (0-2); UACC Culture Trigger YES; WBC Urine 0-5 /HPF (0-5)
[2022-09-08 14:21] LABS: Bacteria Urine Trace (None Seen); Hyaline Casts Urine 0-2 /LPF (0-2); Other Crystals Urine Present
[2022-09-08 14:27] LABS: Hematocrit 35.5 % (42.0-52.0); Hemoglobin 11.2 g/dl (14.0-18.0); Mean Corpuscular HGB Conc 31.5 g/dl (31.0-36.0); Mean Corpuscular Hemoglobin 28.5 pg (27.0-33.0); Mean Corpuscular Volume 90.3 fL (80.0-98.0); Mean Platelet Volume 10.7 fL (9.4-12.4); Platelet Count 147 X10*3/uL (160-400); Red Blood Count 3.93 X10*6/uL (4.60-5.80); Red Cell Distribution Width 16.3 % (11.0-16.0)
[2022-09-08 14:28] LABS: Anion Gap 11 (12-20); Blood Urea Nitrogen 24 mg/dL (9-16); Calcium 8.5 mg/dL (8.4-10.2); Carbon Dioxide 27 mmol/L (22-29); Chloride 109 mmol/L (96-108); Estimated Glomerular Filt Rate 46; Glucose Random 98 mg/dL (60-115); Potassium 4.2 mmol/L (3.3-5.1); Sodium 143 mmol/L (135-145)
[2022-09-08 14:48] LABS: INTERNATIONAL NORM RATIO 1.3 (0.9-1.1); Prothrombin Time 15.5 SEC (10.0-13.1)
== END 2022-09-08 11:22 | disposition home or self-care (01) ==
LOC: HO.HMGCLDS 11:21
PROVIDERS: Absent Provider Internal Medicine; PCP Internal Medicine; Visit Provider Urology
DX: N20.1 Calculus of ureter (principal)
CPT/HCPCS: 36415; 80048; 81001; 81003; 85027; 85610; 87086

== ENCOUNTER 2023-05-11 14:56 | Outpatient (AMB) | payer MEDICARE, SELFPAY ==
--- NOTE | 2023-05-11 15:02 | A.OFFVIS_ITS ---
Intake Vital Signs 05/11/23 15:03 Height 6 ft Weight 275 lb 9.245 oz BMI 37.4 BP 162/66 H Blood Pressure Location Lt brachial Position Sitting Pulse 56 Intake Visit Reasons: Croke referral/PAF [facility] [employer] Required: No Accompanied by: Spouse Allergies ibuprofen [IBUPROFEN] Allergy (Intermediate, Verified 05/11/23 15:08) HIVES hydromorphone [From DILAUDID] Adverse Reaction (Intermediate, Verified 05/11/23 15:08) ILEUS procaine [From Novocain] Adverse Reaction (Intermediate, Verified 05/11/23 15:08) has no numbing effect-states monocain works narcotic pain meds Adverse Reaction (Intermediate, Uncoded 05/11/23 15:08) does not relieve pain per patient Medication List - Last Reconciled 05/11/23 by Luis Leavitt MD allopurinol 100 mg PO DAILY amiodarone 200 mg PO DAILY amlodipine 2.5 mg PO DAILY apixaban (Eliquis) 2.5 mg PO BID aspirin 81 mg PO DAILY atorvastatin 80 mg PO DAILY levothyroxine 88 mcg PO DAILY oxybutynin chloride ER 10 mg PO DAILY oxycodone 10 mg (2 x 5 mg) PO Q6H PRN pantoprazole 40 mg PO DAILY pyridoxine (vitamin B6) 100 mg PO DAILY 90 days sennosides (Senna Lax) 17.2 mg (2 x 8.6 mg) PO BID tamsulosin 0.8 mg (2 x 0.4 mg) PO BEDTIME torsemide 20 mg PO Q5D PRN HPI HPI Comments History of Present Illness Details Ramon is transferring care from [facility]. I have seen him in the past during hospital consultation. He has a history of paroxysmal atrial fibrillation/flutter. According to patient, he has had ablations as well as cardioversions in the past. He also has a history of coronary disease but unknown anatomy. History of chronic heart failure with mildly reduced ejection fraction. On reasonably appropriate medications. Overall, he feels fine. No specific symptoms. He would like to switch his care to as as his is also a patient here. [facility] Medical History (Updated 05/11/23 @ 15:32 by Luis Leavitt MD) Atherosclerotic cardiovascular disease PAF (paroxysmal atrial fibrillation) NSTEMI (non-ST elevated myocardial infarction) Chronic renal disease, stage 3, moderately decreased glomerular filtration rate (GFR) between 30-59 mL/min/1.73 square meter Chest pain Heart failure Thyroid disease GERD (gastroesophageal reflux disease) On anticoagulant therapy COVID-19 vaccine series completed Symptomatic cholelithiasis HTN (hypertension) Hyperlipidemia Atrial fibrillation Sleep apnea Elevated PSA Facet arthropathy, cervical BPH loc w urin obs/LUTS Surgical History (Updated 05/11/23 @ 15:11 by Lyndsey Sewell) S/P laparoscopic cholecystectomy Hx of cataract extraction History of total replacement of both hip joints Hx of cystoscopy H/O colonoscopy History of surgery Family History Unknown No problems noted. Social History Household Members: Spouse Housing: House Are you a primary child care cook to a significant other at home: No Do you presently have visiting nurse or other home services: No Alcohol intake: never Patient Tobacco Use Status: Never used Tobacco Advance Directives Date on File: 07/08/22 service: No Current occupational status: retired Review of Systems Const All systems reviewed & are unremarkable except as noted in HPI and below Reports as per HPI and Reports no additional complaints Eyes Reports as per HPI and Denies no additional complaints ENT Denies no additional complaints and Reports as per HPI Card Reports as per HPI, Reports no additional complaints, Denies acrocyanosis, Denies chest pain, Denies leg edema, Denies lightheadedness, Denies palpitations and Denies dyspnea Resp Reports as per HPI, Denies no additional complaints and Denies dyspnea GI Reports as per HPI and Denies no additional complaints Reports no additional complaints and Reports as per HPI Musc Reports no additional complaints and Reports as per HPI Skin/Breast Reports system reviewed and no additional complaints, except as documented Neuro Reports no additional complaints and Reports as per HPI Psych Reports no additional complaints and Reports as per HPI Endo Reports no additional complaints, Reports as per HPI and Denies palpitations Wilbert/Lymph Reports no additional complaints and Reports as per HPI Aller/Immun Reports no additional complaints and Reports as per HPI Physical Exam Vital Signs: Last Vital Signs Pulse 56 05/11/23 15:03 BP 162/66 H 05/11/23 15:03 BMI result Body Mass Index 37.4 Const General: comfortable and no acute distress Orientation/consciousness: patient oriented x3 HEENT Other: Unremarkable Head: Yes normal to inspection Neck Neck: Yes normal visual inspection Chest Chest palpation & inspection: normal inspection of the chest Resp Auscultation: clear to auscultation bilaterally Cardio Palpation: normal PMI Heart sounds: S1 normal heart sound present, S2 normal heart sound present, no gallops, Murmur heart sound present systolic III/ and at the right sternal border and no rubs GI Palpation (GI): Soft to palpation Back/Spine/Pelvis Other: unremarkable Skin General skin exam: no rashes or lesions noted Neuro General: patient oriented x3 Extrem General: Yes normal to inspection Psych Mental Status: mental status grossly normal Office Procedures EKG Details: EKG with sinus bradycardia, 56/Min; left ventricular hypertrophy; cannot exclude old septal infarct; incomplete right bundle-branch block; [place] prolongation to [address]. [id number], Complete Assessment & Plan Assessment & Plan (1) PAF (paroxysmal atrial fibrillation): Code(s): I48.0 - Paroxysmal atrial fibrillation Plan: Patient, prior cardioversions as well as ablations. Will need to get records. He remains on amiodarone. Thyroid function test that we have on record are within normal limits. Also anticoagulation with Eliquis. (2) Atherosclerotic cardiovascular disease: Code(s): I25.10 - Atherosclerotic heart disease of [employer] coronary artery without angina pectoris Plan: In the past, he was transferred to [facility] for cardiac catheterization after NSTEMI but due to multiple medical issues, he did not get the procedure. According to patient, he might have had a stress test rather. Will need to call prior director gift for records. Any case, he does not have any symptoms at this time. (3) Nonrheumatic aortic (valve) stenosis: Code(s): I35.0 - Nonrheumatic aortic (valve) stenosis Plan: In the [facility] echocardiogram from 07/2022, mild aortic stenosis. Will need periodic follow-up. (4) Cardiomyopathy: Code(s): I42.9 - Cardiomyopathy, unspecified Plan: In the last echocardiogram from [facility], , LVEF 40-45%, global hypokinesis with advanced diastolic dysfunction. Clinically, no symptoms or signs of congestive heart failure. He is on p.r.n. diuretics. Clinically no overt volume overload. Plan Old records including last office note, stress test, echocardiogram to be obtained from [facility]. Medications: Changed From amiodarone 400 mg (2 x 200 mg) PO BID 1 tab 0RF To amiodarone 200 mg PO DAILY Coding Level of Care Code New Pt Level 4 (57441) Diagnoses PAF (paroxysmal atrial fibrillation) I48.0 Atherosclerotic cardiovascular disease I25.10 Nonrheumatic aortic (valve) stenosis I35.0 Cardiomyopathy I42.9 CPT Codes EKG - CPT: 26139-[id number], Complete ([id number])
[2023-05-11 15:03] VITALS: BP 162/66; PULSE 56; BMI 37.4
== END 2023-05-11 15:35 | disposition home or self-care (01) ==
PROVIDERS: PCP Internal Medicine; Visit Provider Internal Medicine
DX: I48.0 Paroxysmal atrial fibrillation (principal); I25.10 Atherosclerotic heart disease of native coronary artery without angina pectoris; I35.0 Nonrheumatic aortic (valve) stenosis; I42.9 Cardiomyopathy, unspecified
CPT/HCPCS: 93010; 99214

== ENCOUNTER → 2023-05-11 14:56 | Outpatient (BNVA) | payer MEDICARE, SELFPAY | PROVIDERS: PCP Internal Medicine; Visit Provider Internal Medicine | DX: I48.0 Paroxysmal atrial fibrillation (principal); I25.10 Atherosclerotic heart disease of native coronary artery without angina pectoris; I35.0 Nonrheumatic aortic (valve) stenosis; I42.9 Cardiomyopathy, unspecified | CPT/HCPCS: 93005; 99212 ==

== ENCOUNTER 2023-06-12 16:53 | Emergency (ER) | payer OTHER, SELFPAY ==
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
[2023-06-12 17:56] VITALS: BP 229/91; PULSE 62; RESP 14; TEMP 37; O2SAT 98; BMI 36.1
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
[2023-06-12 18:41] VITALS: BP 212/84; O2SAT 94
[2023-06-12] MEDS: amLODIPine Besylate 5 MG TABLET PO (19:02)
[2023-06-12] MEDS: Acetaminophen 325 MG TABLET 975 MG PO (19:02)
--- NOTE | 2023-06-12 19:04 | PC.NURSE ---
this rn assumed care of pt. pt sitting stretcher in joel comfortably. pt medicated per sep.
--- NOTE | 2023-06-12 20:40 | PC.NURSE ---
this rn called pharmacy to bring medication up for pt.
[2023-06-12 20:54] VITALS: BP 216/92; PULSE 58; RESP 18; O2SAT 96
[2023-06-12] MEDS: hydrALAZINE HCl 10 MG TABLET PO (21:03)
[2023-06-12 21:32] VITALS: BP 217/83; PULSE 60; RESP 18; O2SAT 96
[2023-06-12 21:51] VITALS: BP 201/93
--- NOTE | 2023-06-12 21:52 | PC.NURSE ---
provider aware of pt blood pressure at this time, pt to be discharged.
== END 2023-06-12 22:05 | disposition home or self-care (01) ==
PROVIDERS: Emergency Provider Student in an Organized Health Care Education/Training Program; PCP Internal Medicine
DX: R51.9 Headache, unspecified (principal); M54.2 Cervicalgia; I10 Essential (primary) hypertension; Z79.899 Other long term (current) drug therapy; Z79.01 Long term (current) use of anticoagulants
CPT/HCPCS: 70450; 72125; 99284

== ENCOUNTER 2023-06-27 15:48 | Emergency (ER) | payer MEDICARE, SELFPAY ==
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
--- NOTE | ~2023-06-27 | CT_ITS ---
EXAMINATION: CT ABDOMEN AND PELVIS WITHOUT CONTRAST CLINICAL INFORMATION: Left groin pain. History of kidney stones. COMPARISON: Previous CT of the abdomen and pelvis June 2022 TECHNIQUE: Multidetector volumetric imaging was performed from the superior aspect of the liver through the pubic symphysis. Sagittal and coronal reformatted images were obtained on the technologist's workstation. This CT examination was performed using dose optimization techniques as appropriate, variously including the following: *Automated exposure control *Adjustment of mA and/or kV according to patient size (this includes techniques or standardized protocols for targeted exams where dose is matched to indication/reason for exam; i.e. extremities or head) *Use of iterative reconstruction technique DLP: 831 mGy-cm FINDINGS: LUNG BASES: The visualized lung bases are unremarkable. LIVER, GALLBLADDER, AND BILIARY TREE: The liver is normal in size, shape, and attenuation. No focal hepatic lesion or biliary ductal dilatation is present. The gallbladder has been removed.. PANCREAS: Unremarkable. SPLEEN: Unremarkable. ADRENAL GLANDS: Unremarkable. KIDNEYS AND URETERS: The kidneys are normal in size, shape, and attenuation. Small left renal stones. No hydronephrosis, ureteral dilatation or ureteral stone. BLADDER: Not well-visualized due to artifact from bilateral hip replacements. GASTROINTESTINAL TRACT: Diverticulosis of the colon. No evidence of diverticulitis. The small and large bowel are unremarkable. The appendix is unremarkable. ABDOMINAL WALL: Small umbilical hernia containing fat. LYMPH NODES: Normal. VASCULAR: Atherosclerotic disease. No aneurysm. PELVIC VISCERA: Not well-visualized due to artifact from hip replacements. OSSEOUS STRUCTURES: There are bilateral hip replacements. There are severe degenerative changes of the lumbar spine. CT/CT abdomen pelvis wo IV con IMPRESSION: Left renal stones. No hydronephrosis, ureteral dilatation or ureteral stone. Diverticulosis. No evidence of diverticulitis. Limited visualization of the pelvis secondary to artifact from bilateral hip replacements. Fleischner guidelines were followed.
[2023-06-27 15:57] VITALS: BP 130/90; BP 160/77; PULSE 60; PULSE 80; RESP 20; TEMP 36.8; O2SAT 96; O2SAT 98; BMI 36.6
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
[2023-06-27 17:32] LABS: MANUAL DIFF FLAG NO
[2023-06-27 17:46] LABS: Basophils Percent Auto 0.5 % (0-2); Eosinophils Absolute Auto 0.1 X10*3/uL (0.0-0.4); Eosinophils Percent Auto 0.7 % (0-4); Hematocrit 38.5 % (42.0-52.0); Hemoglobin 12.6 g/dl (14.0-18.0); Imm Gran Abs Auto 0.03 X10*3/uL (0.00-0.03); Imm Gran Pct Auto 0.4 % (0.0-0.4); Lymphocytes Absolute Auto 1.9 X10*3/uL (1.2-4.9); Lymphocytes Percent Auto 22.2 % (20-40); Mean Corpuscular HGB Conc 32.7 g/dl (31.0-36.0); Mean Corpuscular Hemoglobin 29.3 pg (27.0-33.0); Mean Corpuscular Volume 89.5 fL (80.0-98.0); Mean Platelet Volume 10.3 fL (9.4-12.4); Monocytes Absolute Auto 1.2 X10*3/uL (0.1-1.2); Monocytes Percent Auto 14.6 % (2-11); Neutrophils Absolute Auto 5.2 x10*3/uL (2.0-8.3); Neutrophils Percent Auto 61.6 % (45-73); Platelet Count 128 X10*3/uL (160-400); Red Cell Distribution Width 14.7 % (11.0-16.0); White Blood Count 8.4 X10*3/uL (4.8-10.8)
[2023-06-27 17:47] LABS: Anion Gap 12 (12-20); Blood Urea Nitrogen 19 mg/dL (9-16); Calcium 9.1 mg/dL (8.4-10.2); Carbon Dioxide 26 mmol/L (22-29); Chloride 106 mmol/L (96-108); Creatinine Clr Calc Pharmacy 40.9; Estimated Glomerular Filt Rate 38; Glucose Random 105 mg/dL (60-115); Potassium 4.1 mmol/L (3.3-5.1); Sodium 140 mmol/L (135-145)
[2023-06-27 18:58] LABS: Appearance Urine Clear; Color Urine Yellow; Glucose Urine UA Negative (Negative); Leukocyte Esterase Urine Negative (Negative); Nitrite Urine Negative (Negative); PH 5.5 (5.0-9.0); Specific Gravity - Urine 1.015 (1.005-1.025); UMIC TRIGGER UACC YES; Urine Blood Large (3+) (Negative); Urine Ketones Negative (Negative); Urine Protein Negative (Neg-Trace)
[2023-06-27 19:11] VITALS: BP 203/89; PULSE 57; RESP 18; TEMP 36.8; O2SAT 98
[2023-06-27 19:32] VITALS: BP 188/85
[2023-06-27 20:05] LABS: Bacteria Urine None Seen (None Seen); Hyaline Casts Urine 0-2 /LPF (0-2); RBC Urine 0-2 /HPF (0-2); Squamous Epithelial Cell Urine 0-2 /HPF (0-2); WBC Urine 0-5 /HPF (0-5)
== END 2023-06-27 20:37 | disposition home or self-care (01) ==
PROVIDERS: Registered Nurse Emergency; Emergency Provider Emergency Medicine; PCP Internal Medicine
DX: S76.012A Strain of muscle, fascia and tendon of left hip, initial encounter (principal); R10.2 Pelvic and perineal pain; M25.552 Pain in left hip; X58.XXXA Exposure to other specified factors, initial encounter; Y93.9 Activity, unspecified; Y92.9 Unspecified place or not applicable; Y99.9 Unspecified external cause status; Z79.899 Other long term (current) drug therapy
CPT/HCPCS: 36415; 73502; 74176; 80048; 81001; 81003; 85025; 99283; 99284

== ENCOUNTER → 2023-07-04 12:51 | Outpatient (REF) | payer MEDICARE, SELFPAY ==
--- NOTE | 2023-07-04 12:55 | CA_ITS ---
Transthoracic Echocardiogram Patient (Last, First, Middle): Ramon Atkinson A Gender: Male Date of : 1940 Age: 83 Procedure Date: 07/04/2023 Procedure Type: Transthoracic Echocardiogram Location: OP Height: 182.88 cm Weight: 114.31 kg BSA: 2.35 m2 Heart Rate: bpm BP: 180 / 70 mmHg [employer] Worker: NISREEN Referring MD: Uday Sheehan MD Symptoms: R01.1 CARDIAC MURMUR Study Quality: Technically Difficult, contrast Conclusions: - The left ventricular systolic function is normal. The calculated ejection fraction is 60% by biplane method. - Evidence suggests grade II (moderate) diastolic dysfunction. - The left atrium is moderately dilated. - There is mild to moderate aortic valve stenosis. Findings Procedure Information Contrast agent, definity, is being given per protocol without apparent complications. Left Ventricle Normal left ventricular cavity size. The left ventricular systolic function is normal. The calculated ejection fraction is 60% by biplane method. There is no evidence of regional wall motion abnormalities. Evidence suggests grade II (moderate) diastolic dysfunction. There is mild septal asymmetric hypertrophy. Right Ventricle Normal right ventricular cavity size and systolic function. Atria The left atrium is moderately dilated. The right atrium is normal in size. Aortic Valve There is moderate calcification of the aortic valve. There is mild to moderate aortic valve stenosis. The peak aortic velocity is 2.67 m/s with a calculated peak gradient of 29 mmHg. The mean gradient is 16 mmHg. The aortic valve area is 1.33 cm2. There is mild aortic valve regurgitation. Mitral Valve There is mild mitral annular calcification. There is trace mitral valve regurgitation. There is no mitral valve stenosis. Pulmonic Valve The pulmonic valve is likely normal. Tricuspid Valve There is trace tricuspid valve regurgitation. Tricuspid regurgitation envelope is inadequate for calculation of right ventricular systolic pressure. Great Vessels The asc aorta is normal in size. Venous The inferior vena cava is normal in size and collapses greater than 50% with inspiration. Pericardium/Pleural There is no evidence of pericardial effusion. Prior Study Comparison Changes noted compared to prior study dated: 02/26/2021. slight progression of aortic stenosis. Measurements 2D Linear Measurements IVSd: 1.21 0.6-0.9/0.6-1.0 cm LVIDd: 5.20 3.9-5.3/4.2-5.9 cm LVIDd Index: 2.21 2.4-3.2/2.2-3.1 cm/m2 LVIDs: 3.48 2.0-3.6 cm LVPWd: 0.89 0.7-1.1 cm LV Mass: 258.84 67-162/88-224 g LV Mass Index: 110.15 43-95/49-115 g/m2 LVOT Diam: 2.20 3.0+(-)1.3 cm 2D Systolic Function EF 4C: 60.70 >55% EF 2C: 60.80 >55% EF BiP: 60.20 >55% Mitral Valve MV Pk E: 0.83 MV PK A: 0.80 MV Decel Time: 265.00 E/A: 1.00 E'Lateral: 8.16 E'Medial: 4.35 E/E' Med: 19.00 E/E' Lat: 10.10 PHT: 78.00 MVA PHT: 2.82 Decel [place]: 3.12 Aortic Valve AoV Pk Moshe: 2.67 AoV Mn Moshe: 1.82 AoV VTI: 0.70 AoV Pk Grad: 29.00 Aov Mn Grad: 16.00 VALENTIN Cont.VTI: 1.33 LVOT LVOT Pk Moshe: 1.04 LVOT Mn Moshe: 0.68 LVOT VTI: 0.24 LVOT Pk Grad: 4.00 LVOT Mn Grad: 2.00 LVOT Diam: 2.20 LVOT Area: 3.80 Diastolic Function MV Pk E: 0.83 MV Pk A: 0.80 E/A: 1.00 E'Medial: 4.35 E/E' Med: 19.00 E' Laterial: 8.16 E/E' Lat: 10.10 Right Ventricle TAPSE (mm): 18.60 TVS' Moshe: 11.60 Tricuspid Valve RA Press: 3.00 Great Vessels Aorta Sinus of Valsalva: 3.57 2.0-3.[address] [place]: 3.14 1.7-3.4 cm Ao Asc: 3.70 2.1-3.4 cm Updated in Other Vendor System with Status of Final Luis Leavitt MD electronically signed on 07/05/2023 11:02:10 AM with status of Final
== END ==
LOC: HO.CARD 12:51
PROVIDERS: PCP Internal Medicine; Visit Provider Internal Medicine
DX: R01.1 Cardiac murmur, unspecified (principal)
CPT/HCPCS: 93306; Q9957

== ENCOUNTER → 2023-07-04 12:55 | Outpatient (BNV) | payer MEDICARE, SELFPAY | PROVIDERS: PCP Internal Medicine; Visit Provider Internal Medicine | DX: R01.1 Cardiac murmur, unspecified (principal) | CPT/HCPCS: 93306 ==

== ENCOUNTER 2023-08-03 08:11 | Outpatient (AMB) | payer MEDICARE, SELFPAY ==
[2023-08-03 08:27] VITALS: BP 140/70; PULSE 73; BMI 36.8
--- NOTE | 2023-08-03 08:27 | MHC.OFFVIS ---
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 Required: No Accompanied by: Spouse Allergies ibuprofen [IBUPROFEN] Allergy (Intermediate, Verified 05/11/23 15:08) HIVES hydromorphone [From DILAUDID] Adverse Reaction (Intermediate, Verified 05/11/23 15:08) ILEUS procaine [From Novocain] Adverse Reaction (Intermediate, Verified 05/11/23 15:08) has no numbing effect-states monocain works narcotic pain meds Adverse Reaction (Intermediate, Uncoded 05/11/23 15:08) does not relieve pain per patient Medication List - Last Reconciled 08/03/23 by Luis Leavitt MD allopurinol 100 mg PO DAILY amiodarone 100 mg PO DAILY amlodipine 2.5 mg PO DAILY apixaban (Eliquis) 2.5 mg PO BID aspirin 81 mg PO DAILY atorvastatin 80 mg PO DAILY levothyroxine 88 mcg PO DAILY oxybutynin chloride ER 10 mg PO DAILY oxycodone 10 mg (2 x 5 mg) PO Q6H PRN pantoprazole 40 mg PO DAILY pyridoxine (vitamin B6) 100 mg PO DAILY 90 days sennosides (Senna Lax) 17.2 mg (2 x 8.6 mg) PO BID tamsulosin 0.8 mg (2 x 0.4 mg) PO BEDTIME torsemide 20 mg PO Q5D PRN HPI HPI Comments History of Present Illness Details Ramon returns for follow up. He has a history of paroxysmal atrial fibrillation/flutter. He has had atrial fibrillation ablation in 2020 and 2018. History of chronic heart failure with mildly reduced ejection fraction. On reasonably appropriate medications. Overall, he feels fine. No specific cardiac symptoms. He would like to switch his care from [facility] to us as his is also a patient here. [facility] Medical History Atherosclerotic cardiovascular disease PAF (paroxysmal atrial fibrillation) NSTEMI (non-ST elevated myocardial infarction) Chronic renal disease, stage 3, moderately decreased glomerular filtration rate (GFR) between 30-59 mL/min/1.73 square meter Chest pain Heart failure Thyroid disease GERD (gastroesophageal reflux disease) On anticoagulant therapy COVID-19 vaccine series completed Symptomatic cholelithiasis HTN (hypertension) Hyperlipidemia Atrial fibrillation Sleep apnea Elevated PSA Facet arthropathy, cervical BPH loc w urin obs/LUTS Surgical History S/P laparoscopic cholecystectomy Hx of cataract extraction History of total replacement of both hip joints Hx of cystoscopy H/O colonoscopy History of surgery Family History Unknown No problems noted. Social History Household Members: Spouse Housing: House Are you a primary home health aide caregiver to a significant other at home: No Do you presently have visiting nurse or other home services: No Alcohol intake: never Comment: uses cane periodically Patient Tobacco Use Status: Never used Tobacco Advance Directives Date on File: 07/08/22 service: No Current occupational status: retired Review of Systems Const Reports chills, Reports fatigue, Reports fever(s), Reports frequent falls, Reports weakness, Reports weight gain and Reports weight loss ENT Reports dizziness Card Reports chest pain, Reports leg edema, Reports lightheadedness, Reports palpitations, Reports dyspnea and Reports dyspnea on exertion Resp Reports cough, Reports dyspnea and Reports dyspnea on exertion GI Reports hematochezia Musc Reports abnormal gait, Reports muscle weakness, Reports numbness, Reports radiating pain into limb and Reports tingling Neuro Reports abnormal gait, Reports dizziness, Reports frequent falls, Reports numbness, Reports tingling and Reports weakness Endo Reports fatigue and Reports palpitations Physical Exam Vital Signs: Last Vital Signs Pulse 73 08/03/23 08:27 BP 140/70 H 08/03/23 08:27 BMI result Body Mass Index 36.8 Const General: comfortable and no acute distress Orientation/consciousness: patient oriented x3 HEENT Other: Unremarkable Head: Yes normal to inspection Neck Neck: Yes normal visual inspection Chest Chest palpation & inspection: normal inspection of the chest Resp Auscultation: clear to auscultation bilaterally Cardio Palpation: normal PMI Heart sounds: S1 normal heart sound present, S2 normal heart sound present, no gallops, Murmur heart sound present systolic II/ and at the right sternal border and no rubs GI Palpation (GI): Soft to palpation Back/Spine/Pelvis Other: unremarkable Skin General skin exam: no rashes or lesions noted Neuro General: patient oriented x3 Extrem General: Yes normal to inspection Psych Mental Status: mental status grossly normal Office Procedures EKG Details: EKG with sinus rhythm at 73/Min; [place] prolongation to 228 millisecond; incomplete right bundle-branch block; voltage criteria for LVH; cannot exclude old anteroseptal infarct, but could be from body habitus. [id number], Complete Assessment & Plan Assessment & Plan (1) PAF (paroxysmal atrial fibrillation): Code(s): I48.0 - Paroxysmal atrial fibrillation Plan: Patient, prior cardioversions as well as ablations. He has been on amiodarone 200 mg daily. We can decrease it to 100 mg daily. If no recurrent atrial fibrillation in this dose, then probably make it alternate days. Continue anticoagulation without changes. Per prior cardiology notes, it seems that he has a history of resting sinus bradycardia and hence could not use much beta-blockers. He had taken bisoprolol 2.5 mg daily but not in his current list. (2) Atherosclerotic cardiovascular disease: Code(s): I25.10 - Atherosclerotic heart disease of [place] coronary artery without angina pectoris Plan: In the past, he was transferred to [facility] for cardiac catheterization after NSTEMI but due to multiple medical issues, he did not get the procedure. Myocardial perfusion imaging study from 2022 reported to be probably normal. Clinically, no angina. (3) Nonrheumatic aortic (valve) stenosis: Code(s): I35.0 - Nonrheumatic aortic (valve) stenosis Plan: [id number] aortic stenosis in the last echocardiogram. Can be followed periodically. (4) Cardiomyopathy: Code(s): I42.9 - Cardiomyopathy, unspecified Plan: A prior [facility] echocardiogram had reported LVEF of 40-45% but a more recent echocardiogram from [place] shows LVEF of 60%. He also has moderate diastolic dysfunction. Clinically, no volume overload. Reportedly on diuretics p.r.n. only. (5) HTN (hypertension): Code(s): I10 - Essential (primary) hypertension Plan: He has some recorded high blood pressures but it seems that he was having hip pain after some accident. Today, it is much lower. He states other readings are even lower than that and no more than in the 130s. Hence no changes. Orders: Orders TSH reflex Free T4 Today I48.0 - Paroxysmal atrial fibrillation Coding Level of Care Code Est Pt Level 4 (90759) Diagnoses PAF (paroxysmal atrial fibrillation) I48.0 Atherosclerotic cardiovascular disease I25.10 Nonrheumatic aortic (valve) stenosis I35.0 Cardiomyopathy I42.9 HTN (hypertension) I10 CPT Codes EKG - CPT: [id number], Complete ([id number])
== END 2023-08-03 08:57 | disposition home or self-care (01) ==
PROVIDERS: PCP Internal Medicine; Visit Provider Internal Medicine
DX: I48.0 Paroxysmal atrial fibrillation (principal); I25.10 Atherosclerotic heart disease of native coronary artery without angina pectoris; I35.0 Nonrheumatic aortic (valve) stenosis; I42.9 Cardiomyopathy, unspecified; I10 Essential (primary) hypertension
CPT/HCPCS: 93010; 99214

== ENCOUNTER → 2023-08-03 08:11 | Outpatient (BNVA) | payer MEDICARE, SELFPAY | PROVIDERS: PCP Internal Medicine; Visit Provider Internal Medicine | DX: I48.0 Paroxysmal atrial fibrillation (principal); I25.10 Atherosclerotic heart disease of native coronary artery without angina pectoris; I35.0 Nonrheumatic aortic (valve) stenosis; I42.9 Cardiomyopathy, unspecified; I10 Essential (primary) hypertension | CPT/HCPCS: 93005; 99212 ==

== ENCOUNTER 2023-12-05 09:46 | Outpatient (REF) | payer MEDICARE, SELFPAY ==
[2023-12-05 13:41] LABS: Hematocrit 44.9 % (42.0-52.0); Hemoglobin 14.2 g/dl (14.0-18.0); Mean Corpuscular HGB Conc 31.6 g/dl (31.0-36.0); Mean Corpuscular Hemoglobin 28.5 pg (27.0-33.0); Mean Corpuscular Volume 90.2 fL (80.0-98.0); Mean Platelet Volume 11.1 fL (9.4-12.4); Platelet Count 219 X10*3/uL (160-400); Red Blood Count 4.98 X10*6/uL (4.60-5.80); Red Cell Distribution Width 15.7 % (11.0-16.0); White Blood Count 14.2 X10*3/uL (4.8-10.8)
[2023-12-05 14:02] LABS: Alanine Aminotransferase 16 U/L (0-40); Albumin Level 3.7 g/dL (3.5-5.0); Alkaline Phosphatase 88 U/L (39-117); Anion Gap 15 (12-20); Aspartate Amino Transferase 15 U/L (5-37); Bilirubin Total 0.7 mg/dL (0.0-1.0); Blood Urea Nitrogen 34 mg/dL (9-16); Calcium 8.6 mg/dL (8.4-10.2); Carbon Dioxide 24 mmol/L (22-29); Chloride 108 mmol/L (96-108); Cholesterol 139 mg/dL (<200); Estimated Glomerular Filt Rate 48; Glucose Fasting 121 mg/dL (60-99); HDL Cholesterol 53 mg/dL (>40); LDL Cholesterol Calculated 76 mg/dL (<100); Potassium 4.5 mmol/L (3.3-5.1); Sodium 142 mmol/L (135-145); Total Protein 6.7 g/dL (6.5-8.0); Triglycerides 53 mg/dL (<150)
[2023-12-05 14:17] LABS: Prostate Specific Antigen 3.79 ng/mL (<0.05-4.0)
[2023-12-05 14:21] LABS: Free T4 (Free Thyroxine) 1.43 ng/dL (0.71-1.85); Thyroid Stimulating Hormone 1.59 uIU/mL (0.32-4.0)
[2023-12-05 14:38] LABS: Band Neutrophils Percent 0 % (3-5); Eosinophils Absolute Manual 0.1 X10*3/uL (0.0-0.4); Eosinophils Percent Manual 1 % (0-4); Lymphocytes Absolute Manual 2.6 X10*3/uL (1.2-4.9); Lymphocytes Percent Manual 18 % (20-40); Monocytes Absolute Manual 1.3 X10*3/uL (0.1-1.2); Monocytes Percent Manual 9 % (2-11); Neutrophils Absolute Manual 10.2 X10*3/uL (2.0-8.3); Neutrophils Percent Manual 72 % (45-73)
[2023-12-05 14:39] LABS: Acanthocytes 3+ (>5) /OIF; RBC Morphology NOTED
[2023-12-05 14:40] LABS: Burr Cells 3+ (>5) /OIF; Platelet Estimate NORMAL (NORMAL); Platelet Morphology Comment NORMAL
== END 2023-12-05 09:47 | disposition home or self-care (01) ==
LOC: HO.HMGCLDS 09:46
PROVIDERS: PCP Internal Medicine; Visit Provider Internal Medicine
DX: I48.0 Paroxysmal atrial fibrillation (principal); E78.00 Pure hypercholesterolemia, unspecified; K21.9 Gastro-esophageal reflux disease without esophagitis; N40.0 Benign prostatic hyperplasia without lower urinary tract symptoms; E03.9 Hypothyroidism, unspecified; Z12.5 Encounter for screening for malignant neoplasm of prostate
CPT/HCPCS: 36415; 80053; 80061; 84153; 84439; 84443; 85007; 85025; 85027

== ENCOUNTER 2024-02-09 12:52 | Inpatient (IN) | payer MEDICARE, SELFPAY ==
[2024-02-09] VITALS (25 sets, daily range): BP systolic 114–213; BP diastolic 51–126; PULSE 63–116; RESP 14–55; TEMP 33–39.6; O2SAT 91–99; BMI 38.2; BMI 37.7
--- NOTE | ~2024-02-09 | XR_ITS ---
EXAMINATION: XR CHEST CLINICAL INFORMATION: PICC placement COMPARISON: 02/14/2024 8:35 AM TECHNIQUE: Frontal view of the chest was obtained. FINDINGS: An ET tube remains in good position about 3.8 cm above the castillo. NG tube has its tip in the stomach. Since the study was morning, there is markedly increased opacity overlying the left hemithorax consistent with a increasing sized pleural effusion. There is vascular congestion visible on the right with some mild interstitial prominence. Of note, a right-sided PICC line is present with its tip extending up the neck beyond the field of view. XR/XR chest 1V IMPRESSION: 1. Right-sided PICC line extends up the neck beyond the field of view. 2. Increasing left pleural effusion. 3. CHF with interstitial edema. 4. ET tube and NG tube in good position.
--- NOTE | ~2024-02-09 | XR_ITS ---
EXAMINATION: XR CHEST CLINICAL INFORMATION: Increased ventilation requirements COMPARISON: 02/12/2024 TECHNIQUE: Frontal view of the chest was obtained. FINDINGS: Endotracheal tube tip is above the castillo. Bibasilar atelectasis and left basilar consolidation with moderate cardiomegaly and distention of the pulmonary vessels again noted but there does appear to be some improved aeration particularly in the right lung and this likely reflects somewhat of a resolving edema pattern. XR/XR chest 1V IMPRESSION: Slight improvement. Support tubing stable.
--- NOTE | ~2024-02-09 | XR_ITS ---
EXAMINATION: XR CHEST CLINICAL INFORMATION: Pneumonia COMPARISON: 02/29/2024 TECHNIQUE: Frontal view of the chest was obtained. FINDINGS: There is a right-sided PICC line with tip terminating at the SVC near the cavoatrial junction. Mild bibasilar atelectasis. Low lung volumes. Improving airspace consolidation of the left lung base. Possible trace left pleural effusion. Cardiac and mediastinal contours are normal. Atherosclerotic calcification in the thoracic aorta. Degenerative spondylosis in the thoracic spine. XR/XR chest 1V IMPRESSION: 1. Improving left basilar airspace consolidation. 2. Low lung volumes with bibasilar atelectasis. Electronically signed by: Mil Walsh MD 03/04/2024 02:20 PM EDT
--- NOTE | ~2024-02-09 | XR_ITS ---
EXAMINATION: XR CHEST CLINICAL INFORMATION: OG tube COMPARISON: Chest x-ray on 02/15/2024 TECHNIQUE: Frontal view of the chest was obtained. FINDINGS: The cardiomediastinal silhouette is normal. The endotracheal tube terminates 4.7 cm above the castillo. An enteric tube terminates within the stomach, however the side port appears to be within the distal esophagus. There is left basilar atelectasis and possible trace left pleural effusion. No pneumothorax. XR/XR chest 1V IMPRESSION: 1. An enteric tube terminates within the stomach, however the side port appears to be within the distal esophagus. Consider advancement. 2. Left basilar atelectasis and possible trace left pleural effusion.
--- NOTE | ~2024-02-09 | CT_ITS ---
EXAMINATION: CT HEAD WITHOUT CONTRAST CLINICAL INFORMATION: Encephalopathy. COMPARISON: CT scan of the head dated 02/09/2024 and 06/12/2023. TECHNIQUE: Contiguous axial imaging was performed from the skull base to vertex without intravenous administration of contrast. This CT examination was performed using dose optimization techniques as appropriate, variously including the following: *Automated exposure control *Adjustment of mA and/or kV according to patient size (this includes techniques or standardized protocols for targeted exams where dose is matched to indication/reason for exam; i.e. extremities or head) *Use of iterative reconstruction technique DLP: 1241 mGy-cm FINDINGS: The patient is intubated with the endotracheal tube extending down to at least the aortic arch level. Enteric tube is seen coursing into the abdomen with the side-port at or just below the GE junction. There is complete opacification of the left hemithorax. Dental amalgam causes significant beam hardening artifact, limiting the evaluation of the posterior fossa. There is no evidence of acute intracranial hemorrhage or territorial infarction. No abnormal mass-effect or midline shift is seen. [place]inoza to white matter differentiation is well preserved. No extra-axial fluid collections are identified. The ventricles and sulci are mildly enlarged. Mild periventricular and deep white matter low-attenuation is seen, consistent with ischemic small vessel disease.. The osseous structures and soft tissues are normal. Mild mucosal thickening is seen in the left maxillary sinus and ethmoid air cells. The mastoid air cells and visualized portions of the paranasal sinuses are well-aerated. CT/CT head/brain wo IV con IMPRESSION: 1. No acute intracranial pathology. 2. Findings of mild ischemic small vessel disease. 3. Mild sinus disease. 4. Complete opacification of the left hemithorax. Please correlate with dedicated chest x-ray. 5. Side-port of the enteric tube projects at or just above the GE junction.
--- NOTE | ~2024-02-09 | XR_ITS ---
EXAMINATION: XR CHEST CLINICAL INFORMATION: Follow-up endotracheal tube placement. COMPARISON: Chest radiograph 02/28/2024. TECHNIQUE: Frontal view of the chest was obtained. FINDINGS: The endotracheal tube terminates at 5 cm above the castillo. Redemonstration of a right-sided PICC line with the tip overlying the expected location of the superior cavoatrial junction. Unchanged enlargement of the cardiomediastinal silhouette. Low lung volumes. Increased focal airspace opacities in the left lower lobe. No significant neural effusion. No pneumothorax. No acute osseous findings. XR/XR chest 1V IMPRESSION: 1. The endotracheal tube terminates at 5 cm above the castillo. 2. Increased focal airspace opacities in the left lower lobe, concerning for aspiration, pneumonia or atelectasis. A small associated left pleural effusion is not excluded. 3. No significant change in the right lung. Electronically signed by: Kamilah Hannon MD 02/29/2024 12:38 PM EDT
--- NOTE | ~2024-02-09 | XR_ITS ---
EXAMINATION: XR CHEST CLINICAL INFORMATION: Endotracheal tube advancement. COMPARISON: Chest radiograph performed 02/09/2024 at 2:19 PM. TECHNIQUE: Frontal view of the chest was obtained. FINDINGS: The endotracheal tube has been mildly advanced and now terminates 5.4 cm above the castillo. The enteric tube is unchanged in position. Heart and lungs remain stable in appearance. XR/XR chest 1V IMPRESSION: The endotracheal tube has been slightly advanced and now terminates 5.4 cm above the castillo.
--- NOTE | ~2024-02-09 | XR_ITS ---
EXAMINATION: XR CHEST CLINICAL INFORMATION: Status post bronchoscopy COMPARISON: Chest radiograph 02/14/2024 TECHNIQUE: Frontal view of the chest was obtained. FINDINGS: There is been significant improvement in appearances with partial reexpansion of the left lung which was near completely opacified at the time of the prior study. ET tube is present at least 3 cm above the castillo which is difficult to see. NG tube has its tip in the stomach. The tip of the right-sided PICC line continues to extend into the neck beyond the [id number]. This could be pulled back 10 cm and be in a better central position. Right perihilar opacity is unchanged compared to prior with differential including edema versus infection. No right pleural effusion. XR/XR chest 1V IMPRESSION: 1. Significant improvement in appearances with partial reexpansion of the left lung. 2. Right-sided PICC line continues to extend into the neck beyond the [id number]. This could be pulled back 10 cm and be in a better central position. This critical result was discussed with the principal systems engineer on duty at 1:35 PM on the day of the exam and it was ascertained that the content and urgency of the report was understood at the time of direct communication.
--- NOTE | ~2024-02-09 | XR_ITS ---
EXAMINATION: XR CHEST CLINICAL INFORMATION: Post intubation. COMPARISON: Chest radiograph dated 02/09/2024. TECHNIQUE: Frontal view of the chest was obtained. FINDINGS: The tip of the endotracheal tube terminates 6 cm above the castillo. There is an enteric tube crossing the diaphragm. The tip overlies the gastric body. The cardiac silhouette is normal in size for this projection. There is no consolidation. No large pleural effusion or pneumothorax. No acute osseous abnormality. XR/XR chest 1V IMPRESSION: The tip of the endotracheal tube terminates 6 cm above the castillo. There is an enteric tube crossing the diaphragm. The tip overlies the gastric body. The heart and lungs are unchanged in appearance when compared with exam performed at 1:59 PM.
--- NOTE | ~2024-02-09 | XR_ITS ---
EXAMINATION: XR CHEST CLINICAL INFORMATION: PICC line placement. COMPARISON: Previous of the same day. TECHNIQUE: Frontal view of the chest was obtained. FINDINGS: The lung volumes are low and the patient is rotated. Endotracheal tube is noted in a stable position. A gastric tube extends below the diaphragm outside the field of imaging. A right approach PICC line is again noted extending superiorly to the level of the upper cervical spine/C2-C3. There is again seen near complete opacification of the left lung with shift of the midline to the left. A right perihilar opacity is again seen unchanged. The bony structures and soft tissues are unremarkable. XR/XR chest 1V IMPRESSION: 1. The right approach PICC line is again noted extending superiorly to the level of the upper cervical spine/C2-C3. 2. Low lung volumes with near complete opacification of the left lung and shift of the midline to the left. 3. Right perihilar opacity is unchanged.
--- NOTE | ~2024-02-09 | XR_ITS ---
EXAMINATION: XR CHEST CLINICAL INFORMATION: Change in mental status. COMPARISON: Chest radiograph dated 07/12/2022. TECHNIQUE: Frontal view of the chest was obtained. FINDINGS: The cardiac silhouette is normal in size for this projection. There is no consolidation. No large pleural effusion or pneumothorax. There are severe degenerative changes of the glenohumeral joints. XR/XR chest 1V IMPRESSION: No acute cardiopulmonary disease.
--- NOTE | ~2024-02-09 | CT_ITS ---
EXAMINATION: CT CHEST WITHOUT CONTRAST CLINICAL INFORMATION: Hypoxia. COMPARISON: Chest x-ray dated 02/14/2024. CT scan of the chest dated 09/04/2015. TECHNIQUE: Multidetector volumetric CT imaging of the chest was obtained noncontrast. Sagittal and coronal reformations were obtained. This CT examination was performed using dose optimization techniques as appropriate, variously including the following: *Automated exposure control *Adjustment of mA and/or kV according to patient size (this includes techniques or standardized protocols for targeted exams where dose is matched to indication/reason for exam; i.e. extremities or head) *Use of iterative reconstruction technique DLP: 327 mGy-cm. FINDINGS: Evaluation is significantly limited due to extensive beam hardening artifact extending through the chest. LUNGS: Endotracheal tube is in place with tip approximately 4 cm above the castillo at the level of the aortic arch. There is complete collapse of the left lung with the left mainstem bronchus and lobar bronchi filled with dense material, possibly hemorrhage versus mucus and debris. There is a small left pleural effusion, artifactually appearing hyperdense in some regions due to beam hardening artifact. There is likely a small right pleural effusion as well, though poorly visualized amongst all the artifact. There is volume loss and subsegmental atelectasis with air bronchogram seen in the medial right lower lobe. Some patchy opacity is seen in the dependent portions of the right upper lobe and right middle lobe, presumably also representing atelectatic changes. The right tracheobronchial tree remains patent. LYMPHOVASCULAR STRUCTURES: Right subclavian PICC line malpositioned, extending into the jugular vein and beyond the [id number] of this exam. Aortic and heart size normal. No pericardial effusion. Mild atherosclerotic calcifications of the great vessels and aorta. There is abnormal adenopathy with several prevascular lymph nodes, measuring up to 1.3 cm in diameter, left aortopulmonary window lymph node, measuring up to 1.5 cm in diameter, azygous esophageal lymph node, measuring up to 1.8 cm and multiple additional small subcentimeter sized mediastinal nodes. Fallon are suboptimally assessed due to the artifact as well as combination of noncontrast study and adjacent lung pathology. No significant axillary adenopathy is seen. CORONARY ARTERY CALCIFICATION: Moderate three-vessel coronary artery calcifications. THYROID GLAND: The left lobe of the thyroid gland is asymmetrically slightly smaller than the right lobe with focal punctate calcifications seen. No discrete thyroid mass noted.. UPPER ABDOMEN: Enteric tube extends into the stomach with side port at the GE junction. Included portions of the solid organs in the upper abdomen grossly unremarkable. The right adrenal gland is only partially imaged. Left adrenal gland is not included in the [id number] of this exam. BONES: Diffuse degenerative disc disease and vertebral spondylosis throughout the imaged cervical and thoracic spine. CT/CT chest wo IV con IMPRESSION: 1. Markedly limited exam due to extensive beam hardening artifact. 2. Complete collapse of the left lung with dense material filling and obstructing the left mainstem bronchus and lobar bronchi, possibly hemorrhagic blood products versus proteinaceous mucus and debris. Close clinical correlation requested. 3. Small bilateral pleural effusions, left greater than right. 4. Mediastinal adenopathy. 5. Moderate coronary artery calcifications. 6. Malpositioned right subclavian PICC line, extending into the jugular vein with tip out of the [id number] of this exam. 7. Side port of the enteric tube appears to be at the GE junction. This urgent result was discussed with Grisel Marte M.D. 02/15/2024, 1:24 PM and it was ascertained that the content and urgency of this report was understood at the time of direct communication.
--- NOTE | ~2024-02-09 | IR_ITS ---
History: 84-year-old male with a malpositioned right PICC line via the basilic vein. Procedure performed: 1. Fluoroscopic-guided exchange and repositioning of the PICC line Physician: Kaykay Fairchild MD FSIR Anesthesia: 8 mL of 1% lidocaine was administered for local anesthesia. Specimen: None Line: Dual lumen 5 [place] x 38 cm PICC line. Fluoroscopy time: 1.5 minutes Air Kerma: 20 mGy Drain: None Estimated blood loss: Minimal Complications: None Procedure in detail: The patient was positioned supine on the angiography table. Preliminary fluoroscopy showed that the PICC line was ascending the right internal jugular vein. The line was removed over a wire. We then steered the guidewire to the right atrium and advanced a new dual-lumen 5 [place] PICC line to the right atrium after trimming it to a length of 38 cm that was determined with the measuring wire. The PICC was secured to the arm with a StatLock device. The line was tested and flushes and aspirates appropriately. It is ready for immediate use. Summary: Successful fluoroscopic guided exchange of a PICC line that was malpositioned in the right internal jugular vein. The new PICC line measures 38 cm and terminates in the right atrium as confirmed by a saved fluoroscopic image. It is ready for immediate use. Electronically signed by: Dejan Fairchild MD 03/07/2024 05:33 PM EDT
--- NOTE | ~2024-02-09 | MR_ITS ---
EXAMINATION: MR BRAIN WITHOUT CONTRAST CLINICAL INFORMATION: Persistent encephalopathy. COMPARISON: CT head from 02/15/2024. TECHNIQUE: MRI of the brain was obtained using routine sequences without contrast. FINDINGS: There is small volume layering debris within the atria/occipital horns of the lateral ventricles the demonstrates restricted diffusion and subtle amount of susceptibility artifact. There also appears to be slight scattered diffusion-weighted hyperintensity along the subdural spaces of the bilateral frontal lobes and posterior fossa without overt correlate on T1 or T2 morphologic imaging. No additional restricted diffusion. No evidence of additional acute hemorrhagic products on heme-sensitive imaging. Scattered periventricular and deep white matter T2 FLAIR hyperintensities consistent with mild underlying microangiopathy. Proportional prominence of the ventricles and sulcal spaces without evidence of obstructive hydrocephalus. No abnormal mass effect. No midline shift. Normal appearance of the pituitary gland. Normal positioning of the cerebellar tonsils. Normal arterial and venous vascular flow voids are present. Normal, homogeneous marrow signal. Prominent bilateral mastoid effusions. Mild mucosal thickening in the paranasal sinuses. Mild nasal septal deviation anteriorly and rightward nasal septal deviation posteriorly with spurring. Bilateral lens extractions. MR/MR head/brain wo con IMPRESSION: 1. Small volume layering debris within the atria/occipital horns of the lateral ventricles. Restricted diffusion associated with this material raises the concern for infected debris/ventriculitis. There also appears to be slight scattered diffusion-weighted hyperintensity along the subdural spaces of the bilateral frontal lobes which remains nonspecific but may indicate underlying pachymeningitis in the appropriate clinical setting. 2. Prominent bilateral mastoid effusions. 3. No additional acute intracranial abnormalities. Mild underlying microangiopathy and generalized cerebral volume loss. Electronically signed by: Michael Morton DO 03/05/2024 09:08 PM EDT
--- NOTE | ~2024-02-09 | XR_ITS ---
EXAMINATION: XR CHEST CLINICAL INFORMATION: Hypoxemia COMPARISON: 02/27/2024 TECHNIQUE: Frontal view of the chest was obtained. FINDINGS: Cardiomediastinal silhouette is stable. There is a right-sided PICC with tip projecting over the right atrium. Low lung volumes. Suspect a small left effusion and bilateral streaky airspace opacities. No pneumothorax. XR/XR chest 1V IMPRESSION: Low lung volumes. Suspect a small left effusion and bilateral streaky airspace opacities which may reflect atelectasis versus infiltrate. Electronically signed by: Louis Warner MD 02/28/2024 06:39 AM EDT
--- NOTE | ~2024-02-09 | XR_ITS ---
EXAMINATION: XR CHEST CLINICAL INFORMATION: Endotracheal tube placement COMPARISON: Chest x-ray 02/24/2024 TECHNIQUE: Frontal view of the chest was obtained. FINDINGS: Support devices: Endotracheal tube tip terminates 4.3 cm above the castillo. Endogastric tube terminates below the diaphragm. Stable appearance of consolidative changes within the left middle and lower lung zone. Left upper lung zone appears less well aerated. Right lung is clear. No pneumothorax. Leftward shift of the cardiomediastinal silhouette. Soft tissue and osseous structures are within normal limits XR/XR chest 1V IMPRESSION: Endotracheal tube 4.3 cm above the castillo.
--- NOTE | ~2024-02-09 | XR_ITS ---
EXAMINATION: XR CHEST CLINICAL INFORMATION: Tracheostomy. COMPARISON: Most recent chest radiograph dated 02/25/2024. TECHNIQUE: Frontal view of the chest was obtained. FINDINGS: Interval placement of a midline tracheostomy in appropriate position. Small left-sided pleural effusion with adjacent atelectasis versus infiltrate, significantly decreased when compared to the prior examination. No right-sided pleural effusion or airspace consolidation. No pneumothorax. Stable cardiomediastinal silhouette. XR/XR chest 1V IMPRESSION: 1. Interval placement of a midline tracheostomy in appropriate position. 2. Small left-sided pleural effusion with adjacent atelectasis versus infiltrate, significantly decreased when compared to the prior examination. Electronically signed by: Desean Dunlap MD 02/27/2024 01:08 PM EDT
--- NOTE | ~2024-02-09 | XR_ITS ---
EXAMINATION: XR CHEST CLINICAL INFORMATION: PICC placement COMPARISON: Multiple priors with the last chest x-ray of 03/04/2024 TECHNIQUE: Frontal view of the chest was obtained. FINDINGS: Multiple EKG wires and leads overlie the chest and patient's rotation somewhat limit evaluation. Right PICC is in place with change in appearance of the tip of the PICC. The distal portion of the PICC courses across the midline in the superior to mid mediastinum to the left and then makes a loop over projecting over the left mediastinum coursing back towards midline. Tracheostomy tube is in place. The lungs are moderately hypoexpanded. Streaky densities at the right lung base likely representing atelectasis. No evidence of forearm significant pleural effusions, or overt pulmonary edema or pneumothorax. Assessment of the cardiomediastinal silhouette is limited due to hypoexpansion of the chest. Degenerative changes are noted in the spine. Osteoarthritic changes at the bilateral shoulders. XR/XR chest 1V IMPRESSION: Right PICC is in place, not terminating in the expected location of the SVC/superior cavoatrial junction/right atrium. Recommend repositioning. Hypoexpanded lungs. Right basilar streaky atelectasis. No definite new airspace opacities are noted compared to last x-ray. This critical result was discussed with Dr. Alvarado at 8:01 AM on 03/06/2024 and it was ascertained that the content and urgency of the report was understood at the time of direct communication. Electronically signed by: Susanne Grewal MD 03/06/2024 08:05 AM EDT
--- NOTE | ~2024-02-09 | CT_ITS ---
EXAMINATION: CT HEAD WITHOUT CONTRAST CLINICAL INFORMATION: Altered mental status COMPARISON: CT scan of brain on 06/12/2023 TECHNIQUE: Contiguous axial imaging was performed from the skull base to vertex without intravenous administration of contrast. This CT examination was performed using dose optimization techniques as appropriate, variously including the following: *Automated exposure control *Adjustment of mA and/or kV according to patient size (this includes techniques or standardized protocols for targeted exams where dose is matched to indication/reason for exam; i.e. extremities or head) *Use of iterative reconstruction technique DLP: 817 mGy-cm FINDINGS: Ventricles, sulci and cisterns are dilated, especially the ventricles. Bilateral frontal periventricular white matters show decrease in attenuation. There is no midline shift, no abnormal intra- or extra- axial fluid accumulation. Espinoza and white matter differentiation is normal. Bone window images show no evidence of skull fracture. There is marked mucosal thickening in bilateral ethmoid and left maxillary sinuses with a possible air-fluid level in the left antrum. CT/CT head/brain wo IV con IMPRESSION: 1. 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 2. No intracranial hemorrhage or skull fracture is seen. 3. No evidence of space occupying lesion could be found. 4. The current plain CT scan of the brain shows no diagnostic evidence of acute cerebral infarction. 5. Interval development of marked bilateral ethmoid and left maxillary sinusitis.
--- NOTE | ~2024-02-09 | XR_ITS ---
EXAMINATION: XR CHEST CLINICAL INFORMATION: Follow-up ET tube placement. COMPARISON: 02/09/2024 TECHNIQUE: Portable AP upright view of the chest. FINDINGS: Limited visualization due to patient rotation and kyphosis. ET tube tip projects approximately 5.0 cm above the castillo. Enteric tube tip out of the field of view. Side port of the enteric tube projects at or just below the level of the esophagogastric junction. Increased extensive diffuse bilateral airspace opacities, with left basilar consolidation and left pleural effusion. XR/XR chest 1V IMPRESSION: 1. ET tube tip projects approximately 5.0 cm above the castillo. 2. Enteric tube tip out of the field of view. Side port of the enteric tube projects at or just below the level of the esophagogastric junction. 3. Increased extensive diffuse bilateral airspace opacities, with left basilar consolidation and left pleural effusion. This study was presented today February 12, 2024 for interpretation. Stat results provided at this time as requested by referring provider.
--- NOTE | ~2024-02-09 | XR_ITS ---
EXAMINATION: XR CHEST CLINICAL INFORMATION: PICC placement. COMPARISON: Chest radiograph done earlier the same day. TECHNIQUE: Frontal view of the chest was obtained. FINDINGS: Right-sided central venous catheter with the tip in the region of the SVC. Partially visualized midline tracheostomy in unchanged position. Hypoinflation lungs with bibasilar atelectasis, similar when compared to the prior examination. Possible trace left-sided pleural effusion, unchanged. No pneumothorax. Stable cardiac mediastinal silhouette. XR/XR chest 1V IMPRESSION: 1. Right-sided central venous catheter with the tip in the region of the SVC. Partially visualized midline tracheostomy in unchanged position. 2. Hypoinflation lungs with bibasilar atelectasis and possible trace left-sided pleural effusion, unchanged. Electronically signed by: Desean Dunlap MD 03/06/2024 12:32 PM EDT
--- NOTE | ~2024-02-09 | XR_ITS ---
EXAMINATION: XR CHEST CLINICAL INFORMATION: Status post trach revision COMPARISON: Chest radiograph 02/29/2024 TECHNIQUE: One view of the chest FINDINGS: Lines and tubes: Tracheostomy tube overlies the expected region of the trachea when accounting for patient rotation. Right upper extremity PIC catheter tip terminates near the expected region of the cavoatrial junction when accounting for patient rotation. EKG leads overlie the patient. . There is new subcutaneous emphysema in the right greater than left soft tissues of the neck. There is suspected probable pneumomediastinum, with constellation of findings possibly related to recent tracheostomy revision. New dense left basilar consolidation with leftward mediastinal shift suggesting partial collapse with a possible component of pleural effusion. No pneumothorax. Cardiac silhouette is partially obscured by consolidation. Advanced osteoarthritis of the left shoulder. XR/XR chest 1V IMPRESSION: 1. Tracheostomy tube overlies the expected region of the trachea when accounting for patient rotation. There is new subcutaneous emphysema in the right greater than left soft tissues of the neck. There is suspected probable pneumomediastinum, with constellation of findings possibly related to recent tracheostomy revision. 2. New dense left basilar consolidation with leftward mediastinal shift suggesting partial collapse, with possible component of effusion. The findings and recommendations were discussed with Dr. Jackson by telephone at 02/29/2024 4:14 PM CDT and it was ascertained that the content and urgency of the report was understood at the time of direct communication. Electronically signed by: Johnna Huerta MD 02/29/2024 05:15 PM EDT
--- NOTE | 2024-02-09 13:11 | ED.GENADULT ---
HPI - General Adult General Chief complaint: General Medical Stated complaint: AMS Time Seen by Provider: 02/09/24 13:11 Source: patient and EMS Mode of arrival: EMS Limitations: altered mental status History of Present Illness ED Provider: Chani Quintanilla PA-C HPI narrative: Patient is an 83 year old assigned male at with a history of HTN, CKD, atrial flutter, and NSTEMI presenting to the emergency department today with altered mental status and found in his own vomit. EMS states that the patient was found in bed with vomit all over himself and acting significantly more altered than baseline. Treatments prior to arrival: none Related Data Home Medications ?Medication ?Instructions ?Recorded ?Confirmed levothyroxine 88 mcg tablet 88 mcg PO DAILY 11/12/20 02/09/24 amlodipine 2.5 mg tablet 2.5 mg PO DAILY 02/15/22 02/09/24 apixaban 2.5 mg tablet (Eliquis) 2.5 mg PO BID 05/11/23 02/09/24 atorvastatin 80 mg tablet 80 mg PO DAILY 05/11/23 02/09/24 oxybutynin chloride 10 mg 10 mg PO DAILY 05/11/23 02/09/24 tablet,extended release 24 hr pantoprazole 40 mg tablet,delayed 40 mg PO DAILY 05/11/23 02/09/24 release amiodarone 200 mg tablet 100 mg PO DAILY 08/03/23 02/09/24 Allergies Allergy/AdvReac Type Severity Reaction Status Date / Time ibuprofen [IBUPROFEN] Allergy Intermediate HIVES Verified 02/09/24 13:22 hydromorphone [From DILAUDID] AdvReac Intermediate ILEUS Verified 02/09/24 13:22 procaine [From Novocain] AdvReac Intermediate has no Verified 02/09/24 13:22 numbing effect-states monocain works narcotic pain meds AdvReac Intermediate does not Uncoded 05/11/23 15:08 relieve pain per patient Review of Systems Review of Systems: Yes Unobtainable due to mental status Gastrointestinal: Gastrointestinal: Reports vomiting Neurologic: Reports confusion Psychiatric: Psychiatric: Reports confusion PMFSH Past Medical History Attestation statement: The following information was validated with the patient. (patient unable to validate any information) Source: old records reviewed, nursing notes reviewed and other (EMS provided additional history) Medical History Atherosclerotic cardiovascular disease PAF (paroxysmal atrial fibrillation) NSTEMI (non-ST elevated myocardial infarction) Chronic renal disease, stage 3, moderately decreased glomerular filtration rate (GFR) between 30-59 mL/min/1.73 square meter Chest pain Heart failure Thyroid disease GERD (gastroesophageal reflux disease) On anticoagulant therapy COVID-19 vaccine series completed Symptomatic cholelithiasis HTN (hypertension) Hyperlipidemia Atrial fibrillation Sleep apnea Elevated PSA Facet arthropathy, cervical BPH loc w urin obs/LUTS Surgical History S/P laparoscopic cholecystectomy Hx of cataract extraction History of total replacement of both hip joints Hx of cystoscopy H/O colonoscopy History of surgery Family History Family History Unknown No problems noted. Social History Social History Household Members: Unknown / Unable to assess Housing: Unknown / Unable to assess Are you a primary family day care worker to a significant other at home: No Alcohol intake: never Comment: uses cane periodically Patient Tobacco Use Status: Tobacco use Unknown Use of substances other than those prescribed or required for medical reasons: Unable to respond Spiritual Healthcare Practices: unable to assess Worship Healthcare Practices: unable to assess Cultural Healthcare Practices: unable to assess Advance Directives: No Advance Directives Information Provided: No (AMS) Advance Directives on File: No Advance Directives Date on File: 07/08/22 Do you have a plan to hurt others: No Plan How much weight loss: Unsure Poor oral hygiene: Yes service: No Current occupational status: retired Physical Exam ED Vital Signs: Vital Signs - 24 hr 02/09/24 13:20 02/09/24 13:53 02/09/24 14:00 Temperature 103.3 F H 101.8 F H Pulse Rate 95 108 H 72 Respiratory Rate 45 H 55 H 14 Blood Pressure 213/126 H 197/88 H 126/69 Pulse Oximetry 94 91 L Oxygen Delivery Method Room Air Nasal Cannula Oxygen Flow Rate 2 Fraction of Inspired Oxygen 02/09/24 14:10 02/09/24 14:11 02/09/24 14:21 Temperature Pulse Rate 68 67 Respiratory Rate 43 H 14 Blood Pressure 114/68 120/67 Pulse Oximetry 98 Oxygen Delivery Method Oxygen Flow Rate Fraction of Inspired Oxygen 02/09/24 14:35 02/09/24 14:41 02/09/24 14:55 Temperature Pulse Rate Respiratory Rate Blood Pressure 120/67 Pulse Oximetry Oxygen Delivery Method Oxygen Flow Rate Fraction of Inspired Oxygen 100 40 02/09/24 15:09 02/09/24 15:16 02/09/24 15:27 Temperature 101.4 F H Pulse Rate 68 Respiratory Rate 14 Blood Pressure 126/70 Pulse Oximetry 95 Oxygen Delivery Method Oxygen Flow Rate Fraction of Inspired Oxygen 40 02/09/24 16:00 02/09/24 16:14 02/09/24 16:25 Temperature 101.7 F H 102.0 F H Pulse Rate 67 65 67 Respiratory Rate 14 14 16 Blood Pressure 136/78 125/66 127/67 Pulse Oximetry 96 96 96 Oxygen Delivery Method Mechanical Ventilation Mechanical Ventilation Oxygen Flow Rate Fraction of Inspired Oxygen 02/09/24 16:29 Temperature 102.0 F H Pulse Rate 67 Respiratory Rate 16 Blood Pressure 133/72 Pulse Oximetry Oxygen Delivery Method Oxygen Flow Rate Fraction of Inspired Oxygen BMI result Body Mass Index 37.7 Const General: confusion Nutritional Appearance: obese morbidly obese Orientation/consciousness: confusion Limitations: altered mental status [facility] Head: Yes normal to inspection and Yes atraumatic Ears: external ears normal General nose exam: Normal external nose present, no nasal discharge noted and no epistaxis Face and sinus: No abrasion and No laceration Mouth: Normal oral and palatal mucosa present, no drooling, no muffled voice and other (vomitus residue present on the left side of his mouth) Eyes General: appearance normal, both eyes and all related structures Periorbital: periorbital findings normal Eyelids: Yes eyelids normal Conjunctivae: conjunctivae normal Pupils: Equal, round and reactive pupils present EOM: EOMs intact bilaterally Neck Neck: Yes normal visual inspection, Yes full ROM and Yes no lymphadenopathy Chest Chest palpation & inspection: normal inspection of the chest Resp Effort & Inspection: labored and respiratory distress Auscultation: rales diffuse and rhonchi throughout Cardio Rate: tachycardic Rhythm: abnormal rhythm irregularly irregular GI Inspection: Yes normal to inspection Neuro General: confusion Cranial nerves: Yes Equal, round and reactive pupils present Extrem General: Yes normal to inspection, Yes full ROM and Yes capillary refill normal Medications Administered Generic Name Dose Route Start Last Admin Trade Name Gonzalo PRN Reason Stop Dose Admin Heparin Sodium (Porcine) 5,000 unit 02/09/24 17:00 02/09/24 17:22 Heparin Sodium,Porcine 5,000 Unit/Ml Vial SUBCUT 5,000 unit Q8H AIDAN Administration Propofol 1,000 mg in 100 mls @ 0 mls/hr 02/09/24 14:30 02/09/24 18:19 Diprivan IVCONT 30 mcg/kg/min .Q0M AIDAN 20.84 mls/hr Administration Protocol Per Protocol Piperacillin Sod/Tazobactam 50 mls @ 100 mls/hr 02/09/24 17:00 02/09/24 18:32 Sod 3.375 gm/ Sodium Chloride IV Infused Q6H AIDAN Infusion Discontinued Medications Generic Name Dose Route Start Last Admin Trade Name Gonzalo PRN Reason Stop Dose Admin Acetaminophen 650 mg 02/09/24 13:19 02/09/24 13:36 Acetaminophen Supp 650 Mg Supp.Rect ND 02/09/24 13:20 650 mg ONCE ONE Administration Acetaminophen 650 mg 02/09/24 15:04 02/09/24 15:21 Acetaminophen Supp 650 Mg Supp.Rect ND 02/09/24 15:05 650 mg ONCE ONE Administration Bumetanide 1 mg 02/09/24 14:22 02/09/24 14:55 Bumetanide 1 Mg/4 Ml Vial IVPUSH 02/09/24 14:23 1 mg ONCE ONE Administration Protocol Etomidate 30 mg 02/09/24 14:03 02/09/24 14:11 Etomidate 20 Mg/10 Ml Vial IVPUSH 02/09/24 14:04 30 mg NOW STA Administration Fentanyl 50 mcg 02/09/24 14:03 02/09/24 14:11 Fentanyl Citrate/Pf 100 Mcg/2 Ml Vial IVPUSH 02/09/24 14:04 50 mcg Q1H ONE Administration Protocol Ceftriaxone Sodium 1 gm/ 50 mls @ 100 mls/hr 02/09/24 13:19 02/09/24 14:31 Sodium Chloride IV 02/09/24 13:48 Infused ONCE ONE Infusion Sodium Chloride 2,121 mls @ 2,121 mls/hr 02/09/24 13:39 02/09/24 15:17 Ns IV 02/09/24 14:38 Infused .Q1H STA Infusion Vancomycin HCl 2,000 mg in 500 mls @ 250 mls/hr 02/09/24 14:30 02/09/24 17:20 Vancomycin/Ns IV 02/09/24 16:29 Infused ONCE ONE Infusion Labetalol HCl 20 mg 02/09/24 14:03 02/09/24 14:10 Labetalol Hcl 100 Mg/20 Ml Vial IVPUSH 02/09/24 14:04 20 mg ONCE ONE Administration Rocuronium [place] 100 mg 02/09/24 14:03 02/09/24 14:12 Rocuronium [place] 50 Mg/5 Ml Vial IVPUSH 02/09/24 14:04 100 mg ONCE ONE Administration Procedures Intubation Intubation Type:: Endotracheal Tube Insertion Intubation Date:: 02/09/24 Intubation Time:: 14:23 Time out performed: Yes sedative: Fentanyl Mg Given: 30 paralytic: Rocuronium Mg Given: 100 Laryngoscope: fiber optic video scope ET Tube Size: 7.5 ET Tube Uncuffed: Yes Tube Secured Depth (cm): 22 Tube Placement Confirmation: visualized tube passing through cords, equal breath sounds bilaterally, no breath sounds over epigastrium and confirmation by capnometry Patient Tolerated Procedure: well Intubation Complications: none Additional Comments: Intubation Took a look with a 4 MAC blade was able to visualize cords 7-1/2 ET tube was advanced through the vocal cords with positive end-tidal color change.? Was able to hear bilateral breath sounds Blood Loss: none complications: None Afterwards 16 [place] NG tube was inserted and auscultated in the abdomen and an x-ray was ordered All performed with Dr. Angela Medical Decision Making Medical Decision Making MDM Narrative: Patient is an 83 year old assigned male at with a history of HTN, CKD, atrial flutter, CHF, and NSTEMI presenting to the emergency department today with altered mental status, fever, vomiting, and difficulty breathing. Patient's physical exam was as noted in the physical exam portion of this note. Patient was confused, unable to answer questions or follow commands. Patient had vomitus residue on his face and his lung sounds were as noted. Patient was not able to clear his secretions / maintain his airway. I consulted with Dr. Angela who recommended immediate intubation of the patient. RSI was performed by Dr. Angela with RT at the bed side, without incident. Dr. Angela also placed an OG tube. Patient's initial chest XR showed evidence of PNA however, the radiologist read it as no acute process. Patient's CXR after intubation showed an ET tube at 6cm above the castillo. ET tube was adjusted and another CXR was obtained that showed the ET tube being 5.4cm above the castillo. Patient's head CT was negative for any acute process. RT stated that the ICU RT would replace the ET tube when the patient was transported to the ICU. Patient's blood work showed an elevated WBC count of 15.1 with a left shift, patient's CR was 1.56, BUN of 19, initial lactic acid of 4.3, and initial trop of 1,352.2. Patient's EKG showed atrial fibrillation at a rate of 102. I consulted with Dr. Holland of cardiology who stated this is unlikely to be cardiac related as the patient has many other contributing factors to the elevated troponin. Patient's urine showed no acute process. Upon presentation, patient was febrile at 103.3, hypertensive at 213/126, and tachy at 108. Patient's presentation was concerning for sepsis (@1319). Patient was given 30mg/kg of NS based on ideal body weight because the patient is morbidly obese. Dr. Angela recommended giving the patient IV bumex given his history of CHF and 20mg of IV labteolol for his HTN. I spoke to Dr. Jackson who agreed to ICU admission. I attempted to contact the patient's multiple times however, no one answered the provided telephone numbers. EMS stated that the patient's neighbor initially found the patient and was going to stay with the patient's who has severe Alzheimers. EMS stated the patient also has a son but there is no contact information listed from him anywhere in the patient's chart. After extensive investigation, I was able to locate a daughter named Chapis Atkinson who lives in [facility] and can be reached at [phone]. I informed the patient's daughter of the patient's condition and confirmed with her the patient is a full code. Differential Diagnosis Differential Diagnoses: The differential diagnosis associated with the presentation includes Respiratory failure Hypoxia Sepsis Pneumonia Aspiration pneumonia Admission/Observation Consideration of admission/observation: Escalation of care including admission/observation considered Patient admitted to the ICU Consult Healthcare Provider Management of the patient was discussed with: Civil Structural Designer (spoke to Dr. Holland, Dr. Jackson, and Dr. Angela as noted in the MDM Rationale portion of this note. ) Lab Data [facility] Lab Attestation statement: I reviewed the patient's lab results. My interpretation of these results are in the MDM Rationale portion of this note. 02/09/24 13:28 02/09/24 13:28 Labs: Lab Results 02/09/24 02/09/24 Range/Units 13:28 13:46 WBC 15.1 H (4.8-10.8) X10*3/uL RBC 4.67 (4.60-5.80) X10*6/uL Hgb 13.5 L (14.0-18.0) g/dl Hct 40.7 L (42.0-52.0) % MCV 87.2 (80.0-98.0) fL MCH 28.9 (27.0-33.0) pg MCHC 33.2 (31.0-36.0) g/dl RDW 15.3 (11.0-16.0) % Plt Count 160 D (160-400) X10*3/uL MPV 9.8 (9.4-12.4) fL Immature Gran % (Auto) 0.6 H (0.0-0.4) % Neut % (Auto) 81.6 H (45-73) % Lymph % (Auto) 4.4 L (20-40) % [place] % (Auto) 13.2 H (2-11) % Eos % (Auto) 0.0 (0-4) % Baso % (Auto) 0.2 (0-2) % Lymph # (Auto) 0.7 L (1.2-4.9) X10*3/uL [place] # (Auto) 2.0 H (0.1-1.2) X10*3/uL Eos # (Auto) 0.0 (0.0-0.4) X10*3/uL Baso # (Auto) 0.0 (0.0-0.2) X10*3/uL Abs Immat Gran (auto) 0.09 H (0.00-0.03) X10*3/uL Absolute Neuts (auto) 12.3 H (2.0-8.3) x10*3/uL Absolute Nucleated RBC 0.000 (0.0-0.012) X10*3/uL Nucleated RBC % (auto) 0.0 (0.0-0.2) /100WBC Smear Tech's Comments VERIFIED PT 15.5 H (11.1-13.3) SEC INR 1.3 H (0.9-1.1) APTT 37.0 H (26.0-36.8) SEC Sodium 138 (135-145) mmol/L Potassium 4.3 (3.3-5.1) mmol/L Chloride 103 (96-108) mmol/L Carbon Dioxide 19 L (22-29) mmol/L Anion Gap 20 (12-20) BUN 19 H (9-16) mg/dL Creatinine 1.56 H (0.5-1.4) mg/dL Estim Creat Clear Calc 45.0 Estimated GFR 43 Random Glucose 175 H (60-115) mg/dL Lactic Acid 4.3 H* (0.5-2.0) mmol/L Calcium 9.0 (8.4-10.2) mg/dL Magnesium 1.7 (1.6-2.6) mg/dL Total Bilirubin 1.5 H (0.0-1.0) mg/dL AST 22 (5-37) U/L ALT 11 (0-40) U/L Alkaline Phosphatase 85 (39-117) U/L Troponin I High Sens 1352.2 H* D (<3.5-35.0) ng/L Total Protein 7.2 (6.5-8.0) g/dL Albumin 3.6 (3.5-5.0) g/dL Urine Color Yellow Urine Appearance Clear Urine pH 6.5 (5.0-9.0) Ur Specific Lead 1.015 (1.005-1.025) Urine Protein 300 (3+) H (Neg-Trace) mg/dL Urine Glucose (UA) Negative (Negative) mg/dL Urine Ketones 15 (Negative) mg/dL Urine Blood Large (3+) H (Negative) Urine Nitrite Negative (Negative) Ur Leukocyte Esterase Negative (Negative) Urine RBC >20 H (0-2) /HPF Urine WBC 0-5 (0-5) /HPF Ur Squamous Epith Cells 0-2 (0-2) /HPF Urine Bacteria None Seen (None Seen) Hyaline Casts 0-2 (0-2) /LPF Influenza Type A (PCR) NEGATIVE (Negative) Influenza Type B (PCR) NEGATIVE (Negative) RSV RNA Qual (PCR) NEGATIVE (Negative) SARS-CoV-2 RNA (RT-PCR) NEGATIVE (Negative) Independent Interpretation I performed an independent interpretation of an: EKG, Plain X-Ray and CT Scan Interpretation: My interpretation of the patient's chest x-rays is different than that of the radiologists and is explained in the MDM portion of this note. My impression is in agreement with the radiologist's in regard to the patient's CT scan EXAMINATION: XR CHEST CLINICAL INFORMATION: Change in mental status. COMPARISON: Chest radiograph dated 07/12/2022. TECHNIQUE: Frontal view of the chest was obtained. FINDINGS: The cardiac silhouette is normal in size for this projection. There is no consolidation. No large pleural effusion or pneumothorax. There are severe degenerative changes of the glenohumeral joints. XR/XR chest 1V IMPRESSION: No acute cardiopulmonary disease. Dictated By: Zeke Foster Jr, DO Signed By: Electronically signed by Zeke Foster Jr, DO 02/09/24 1422 EXAMINATION: XR CHEST CLINICAL INFORMATION: Post intubation. COMPARISON: Chest radiograph dated 02/09/2024. TECHNIQUE: Frontal view of the chest was obtained. FINDINGS: The tip of the endotracheal tube terminates 6 cm above the castillo. There is an enteric tube crossing the diaphragm. The tip overlies the gastric body. The cardiac silhouette is normal in size for this projection. There is no consolidation. No large pleural effusion or pneumothorax. No acute osseous abnormality. XR/XR chest 1V IMPRESSION: The tip of the endotracheal tube terminates 6 cm above the castillo. There is an enteric tube crossing the diaphragm. The tip overlies the gastric body. The heart and lungs are unchanged in appearance when compared with exam performed at 1:59 PM. Dictated By: Zeke Foster Jr, DO Signed By: Electronically signed by Zeke Foster Jr, DO 02/09/24 1434 EXAMINATION: XR CHEST CLINICAL INFORMATION: Endotracheal tube advancement. COMPARISON: Chest radiograph performed 02/09/2024 at 2:19 PM. TECHNIQUE: Frontal view of the chest was obtained. FINDINGS: The endotracheal tube has been mildly advanced and now terminates 5.4 cm above the castillo. The enteric tube is unchanged in position. Heart and lungs remain stable in appearance. XR/XR chest 1V IMPRESSION: The endotracheal tube has been slightly advanced and now terminates 5.4 cm above the castillo. Dictated By: Zeke Foster Jr, DO Signed By: Electronically signed by Zeke Foster Jr, DO 02/09/24 1457 EXAMINATION: CT HEAD WITHOUT CONTRAST CLINICAL INFORMATION: Altered mental status COMPARISON: CT scan of brain on 06/12/2023 TECHNIQUE: Contiguous axial imaging was performed from the skull base to vertex without intravenous administration of contrast. This CT examination was performed using dose optimization techniques as appropriate, variously including the following: *Automated exposure control *Adjustment of mA and/or kV according to patient size (this includes techniques or standardized protocols for targeted exams where dose is matched to indication/reason for exam; i.e. extremities or head) *Use of iterative reconstruction technique DLP: 817 mGy-cm FINDINGS: Ventricles, sulci and cisterns are dilated, especially the ventricles. Bilateral frontal periventricular white matters show decrease in attenuation. There is no midline shift, no abnormal intra- or extra- axial fluid accumulation. Espinoza and white matter differentiation is normal. Bone window images show no evidence of skull fracture. There is marked mucosal thickening in bilateral ethmoid and left maxillary sinuses with a possible air-fluid level in the left antrum. CT/CT head/brain wo IV con IMPRESSION: 1. 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 2. No intracranial hemorrhage or skull fracture is seen. 3. No evidence of space occupying lesion could be found. 4. The current plain CT scan of the brain shows no diagnostic evidence of acute cerebral infarction. 5. Interval development of marked bilateral ethmoid and left maxillary sinusitis. Dictated By: James Diehl Signed By: Electronically signed by James Diehl 02/09/24 1617 Vent. Rate: 102 BPM Atrial Rate: 000 BPM P-R Int: 000 ms QRS Dur: 094 ms QT Int: 354 ms P-R-T Axes: 000 -48 016 degrees QTc Int: 461 ms Atrial fibrillation with rapid ventricular response Left axis deviation Incomplete right bundle branch block Minimal voltage criteria for LVH, may be normal variant (R in aVL) Anteroseptal infarct (cited on or before 04-AUG-2021) Abnormal ECG When compared with ECG of 12-JUL-2022 11:06, Significant changes have occurred DD/ 1330 Radiology Impression Discussion of test interpretation with radiology: I have reviewed the radiologist's reading. Independent Historian Clinical information obtained from an independent historian. History obtained from or confirmed by: EMS (EMS provided all history and ROS given the patient's altered state) Chronic Conditions Patient?s care impacted by: Hypertension Critical Care Time Critical Care Time Critical Care Time: Yes Total Critical Care Time: 68 Attestation: I spent 68 minutes of Critical Care Time with this patient. This does not include time spent on separately reported billable procedures. Discharge Plan Discharge Clinical Impression: Pneumonia, Sepsis, Altered mental status Patient Disposition: Admitted As Inpatient Interventions: Admission Worksheet (ED) Last Done: 02/09/24 17:39 Discharge Date/Time: 02/09/24 17:39
--- NOTE | 2024-02-09 13:19 | ECG_ITS ---
Test Reason : AMS/ weakness Blood Pressure : / mmHG Vent. Rate : 102 BPM Atrial Rate : 000 BPM P-R Int : 000 ms QRS Dur : 094 ms QT Int : 354 ms P-R-T Axes : 000 -48 016 degrees QTc Int : 461 ms Atrial fibrillation with rapid ventricular response Left axis deviation Incomplete right bundle branch block Minimal voltage criteria for LVH, may be normal variant ( R in aVL ) Anteroseptal infarct (cited on or before 04-AUG-2021) Abnormal ECG When compared with ECG of 12-JUL-2022 11:06, Significant changes have occurred Referred By: Chani Quintanilla Electronically Signed By:Ascencion Holland
[2024-02-09 13:35] LABS: Basophils Percent Auto 0.2 % (0-2); Hematocrit 40.7 % (42.0-52.0); Hemoglobin 13.5 g/dl (14.0-18.0); Imm Gran Abs Auto 0.09 X10*3/uL (0.00-0.03); Imm Gran Pct Auto 0.6 % (0.0-0.4); Lymphocytes Absolute Auto 0.7 X10*3/uL (1.2-4.9); Lymphocytes Percent Auto 4.4 % (20-40); MANUAL DIFF FLAG SCAN; Mean Corpuscular HGB Conc 33.2 g/dl (31.0-36.0); Mean Corpuscular Hemoglobin 28.9 pg (27.0-33.0); Mean Corpuscular Volume 87.2 fL (80.0-98.0); Mean Platelet Volume 9.8 fL (9.4-12.4); Monocytes Percent Auto 13.2 % (2-11); Neutrophils Absolute Auto 12.3 x10*3/uL (2.0-8.3); Neutrophils Percent Auto 81.6 % (45-73); Platelet Count 160 X10*3/uL (160-400); Red Blood Count 4.67 X10*6/uL (4.60-5.80); Red Cell Distribution Width 15.3 % (11.0-16.0); SCAN SMEAR FLAG 1; White Blood Count 15.1 X10*3/uL (4.8-10.8)
[2024-02-09] MEDS: Acetaminophen Supp 650 MG SUPP.RECT PR ×2 (13:36→15:21)
[2024-02-09 13:41] LABS: INTERNATIONAL NORM RATIO 1.3 (0.9-1.1); Prothrombin Time 15.5 SEC (11.1-13.3)
[2024-02-09] MEDS: cefTRIAXone sodium 1 GM in 0.9 % Sodium Chloride 50 ML IV (13:47)
[2024-02-09] MEDS: 0.9 % Sodium Chloride 2,121 ML 2121 ML IV (13:47)
[2024-02-09 13:55] LABS: WBC ABN SCTR FOR CBC V
[2024-02-09 13:58] LABS: Lactic Acid 4.3 mmol/L (0.5-2.0)
[2024-02-09 14:03] LABS: Appearance Urine Clear; Color Urine Yellow; Glucose Urine UA Negative (Negative); Leukocyte Esterase Urine Negative (Negative); Nitrite Urine Negative (Negative); PH 6.5 (5.0-9.0); Specific Gravity - Urine 1.015 (1.005-1.025); UMIC TRIGGER UACC YES; Urine Blood Large (3+) (Negative); Urine Ketones 15 mg/dL (Negative); Urine Protein 300 (3+) mg/dL (Neg-Trace)
[2024-02-09 14:07] LABS: Bacteria Urine None Seen (None Seen); Hyaline Casts Urine 0-2 /LPF (0-2); RBC Urine >20 /HPF (0-2); Squamous Epithelial Cell Urine 0-2 /HPF (0-2); WBC Urine 0-5 /HPF (0-5)
[2024-02-09] MEDS: Labetalol HCL 100 MG/20 ML VIAL 20 MG IVPUSH (14:10)
[2024-02-09 14:11] LABS: Troponin-I High Sensitivity 1352.2 ng/L (<3.5-35.0)
[2024-02-09] MEDS: Etomidate 20 MG/10 ML VIAL 30 MG IVPUSH (14:11)
[2024-02-09] MEDS: fentaNYL citrate/PF 100 MCG/2 ML VIAL 50 MCG IVPUSH (14:11)
[2024-02-09] MEDS: Rocuronium Bromide 50 MG/5 ML VIAL 100 MG IVPUSH (14:12)
[2024-02-09 14:15] LABS: Influenza A PCR NEGATIVE (Negative); Influenza B PCR NEGATIVE (Negative); Resp Syncy Virus RNA Qual PCR NEGATIVE (Negative); SARS COV2 PCR INHOUSE NEGATIVE (Negative)
[2024-02-09 14:21] LABS: SLIDE REVIEW VERIFIED
[2024-02-09] MEDS: propofoL 1,000 MG/100 ML VIAL 20.84 MG IVCONT ×3 (14:21→22:40)
--- NOTE | 2024-02-09 14:21 | PC.NURSE ---
patient's health was declining and decision was made to move him to ED bed 4 for intubation. desai with temp sensing inserted. bilateral IV's inserted, one done by ems and then ED staff added the second line.
[2024-02-09 14:30] LABS: Alanine Aminotransferase 11 U/L (0-40); Albumin Level 3.6 g/dL (3.5-5.0); Alkaline Phosphatase 85 U/L (39-117); Anion Gap 20 (12-20); Aspartate Amino Transferase 22 U/L (5-37); Bilirubin Total 1.5 mg/dL (0.0-1.0); Blood Urea Nitrogen 19 mg/dL (9-16); Carbon Dioxide 19 mmol/L (22-29); Chloride 103 mmol/L (96-108); Estimated Glomerular Filt Rate 43; Glucose Random 175 mg/dL (60-115); Magnesium 1.7 mg/dL (1.6-2.6); Potassium 4.3 mmol/L (3.3-5.1); Sodium 138 mmol/L (135-145); Total Protein 7.2 g/dL (6.5-8.0)
[2024-02-09] MEDS: Bumetanide 1 MG/4 ML VIAL IVPUSH (14:55)
--- NOTE | 2024-02-09 15:09 | PC.NURSE ---
Propofol titrated down d/t pt being -4 RASS, Ct scan complete.
[2024-02-09] MEDS: vancomycin/NS 2,000 MG/500 ML PLAST..BAG 250 MG IV (15:14)
[2024-02-09 15:32] LABS: Reflex Lactate? Lactic Acid Added
--- NOTE | 2024-02-09 15:32 | PC.RT ---
RT called to bedside for pt not protecting his airway. MD made decision to intubate pt. Pt was pre oxygenated w/ NC and bag valve ventilation. Pt was intubated w/ a 7.5 ETT sitting 24 cm at the lips. Tube confirmed w/ colormetric CO2, quantitative CO2, bilateral breath sounds, and x-ray. Post x-ray, ETT was pushed in 2 cm to 26 cm at the lip. Pt has good volumes and is stable on mechanical ventilation settings as documented. Pt transported to CT on transport vent w/o incident. Pt resting comfortable on current settings, no complications noted.
--- NOTE | 2024-02-09 16:26 | PC.NURSE ---
Propofol drip increased to 30mcg/kg/min, pt RASS score -2.
[2024-02-09] MEDS: Heparin Sodium,Porcine 5,000 UNIT/ML VIAL 5000 UNIT SUBCUT (17:22)
[2024-02-09 17:23] LABS: VBG Base Excess -1.3 mmol/L; VBG HCO3 22 mmol/L (22-26); VBG pCO2 34 mmHg; VBG pH 7.42 (7.32-7.43); VBG pO2 64 mmHg
[2024-02-09 17:29] LABS: ~Lactic Acid-LAB USE ONLY 2.4 mmol/L (0.5-2.0)
[2024-02-09 17:45] LABS: Venous Blood Gas Refer to POC result
[2024-02-09] MEDS: Piperacillin Sodium/Tazobactam 3.375 GM in 0.9 % Sodium Chloride 50 ML IV ×2 (17:58→22:19)
--- NOTE | 2024-02-09 18:47 | PHA.MEDREC ---
Addendum entered by Jori Mireles [facility] 02/09/24 18:57: MED REC DOUBLE CHECKED BY [facility] Original Note: Pharmacy Consult ? Medication Reconciliation Pharmacy has completed the medication reconciliation. Confirmed medications with pharmacy claims and called [facility] in [place] to verify older meds due to patient being unresponsive.
[2024-02-09 19:13] LABS: Reflex Lactate? 2 Y
--- NOTE | 2024-02-09 19:49 | P.HPCC_ITS ---
History of Present Illness Date of Service: 02/09/24 Attending physician on admission: Brian Jackson Chief Complaint: Altered mental status The patient is a 83-year-old male with a past medical history of paroxysmal atrial fibrillation/flutter (on eliquis),? coronary artery disease,? NSTEMI, congestive heart failure? with LVEF 40-45%, hypertension,? hyperlipidemia, chronic renal disease stage III and sleep apnea? who presented to emergency department? with altered mental status.? According to EMS patient was found by neighbor in bed for in vomit,? he was significantly altered.? ?On arrival to the emergency department patient requiring emergent intubation for airway protection, ? he was afebrile with T high 103.3, tachypneic to 45, hypertensive to systolic of 200s,? and tachycardic.? Laboratory data was significant for WBC of 15.1, serum bicarb 19, BUN 19, creatinine 1.56, lactic acid 4.3, troponin sensitivity 1352.? ?Imaging:? ?Head CT:? did not show any acute bleed,? and no evidence of acute cerebral infarction ?Chest x-ray:? with no acute changes from previous imaging ?ED course:? ?Patient received 30 mL/kg of fluids, labetalol 20 mg IV push, Bumex 1 mg IV, ceftriaxone 1 g, vancomycin 2000, and acetaminophen 650 Review of Systems 2 Review of Systems: Yes unobtainable due to endotracheal tube PMFSH Past Medical History Medical History Atherosclerotic cardiovascular disease PAF (paroxysmal atrial fibrillation) NSTEMI (non-ST elevated myocardial infarction) Chronic renal disease, stage 3, moderately decreased glomerular filtration rate (GFR) between 30-59 mL/min/1.73 square meter Chest pain Heart failure Thyroid disease GERD (gastroesophageal reflux disease) On anticoagulant therapy COVID-19 vaccine series completed Symptomatic cholelithiasis HTN (hypertension) Hyperlipidemia Atrial fibrillation Sleep apnea Elevated PSA Facet arthropathy, cervical BPH loc w urin obs/LUTS Family History Family History Unknown No problems noted. Surgical History Surgical History S/P laparoscopic cholecystectomy Hx of cataract extraction History of total replacement of both hip joints Hx of cystoscopy H/O colonoscopy History of surgery Social History Social History Household Members: Unknown / Unable to assess Housing: Unknown / Unable to assess Are you a primary career coordinator to a significant other at home: No Alcohol intake: never Comment: uses cane periodically Patient Tobacco Use Status: Tobacco use Unknown Use of substances other than those prescribed or required for medical reasons: Unable to respond Currently Displaying Signs/Symptoms of Drug Intoxication Withdrawal: No Spiritual Healthcare Practices: unable to assess [facility] Healthcare Practices: unable to assess Cultural Healthcare Practices: unable to assess Advance Directives: No Advance Directives Information Provided: No (AMS) Advance Directives on File: No Advance Directives Date on File: 07/08/22 Do you have a plan to hurt others: No Plan How much weight loss: Unsure Poor oral hygiene: Yes service: No Current occupational status: retired Meds Allergies Allergy/AdvReac Type Severity Reaction Status Date / Time ibuprofen [IBUPROFEN] Allergy Intermediate HIVES Verified 02/09/24 13:22 hydromorphone [From DILAUDID] AdvReac Intermediate ILEUS Verified 02/09/24 13:22 procaine [From Novocain] AdvReac Intermediate has no Verified 02/09/24 13:22 numbing effect-states monocain works narcotic pain meds AdvReac Intermediate does not Uncoded 05/11/23 15:08 relieve pain per patient Active Medications: Current Medications Chlorhexidine Gluconate (Chlorhexidine Gluc Oral Rinse 15 Ml Mouthwash) 15 ml BUCCAL TID [facility] Famotidine (Famotidine/Pf 20 Mg/2 Ml Vial) 20 mg IVPUSH DAILY [facility] Heparin Sodium (Porcine) (Heparin Sodium,Porcine 5,000 Unit/Ml Vial) 5,000 unit SUBCUT Q8H [facility] Last Admin: 02/09/24 17:22 Dose: 5,000 unit Propofol (Diprivan) 1,000 mg in 100 mls @ 0 mls/hr IVCONT .Q0M [facility]; Protocol Last Admin: 02/09/24 18:19 Dose: 30 mcg/kg/min, 20.84 mls/hr Piperacillin Sod/Tazobactam (Sod 3.375 gm/ Sodium Chloride) 50 mls @ 100 mls/hr IV Q6H [facility] Last Infusion: 02/09/24 18:32 Dose: Infused Home Medications ?Medication ?Instructions ?Recorded ?Confirmed ?Last Taken ?Type levothyroxine 88 mcg tablet 88 mcg PO DAILY 11/12/20 02/09/24 07/07/22 History amlodipine 2.5 mg tablet 2.5 mg PO DAILY 02/15/22 02/09/24 07/07/22 History apixaban 2.5 mg tablet (Eliquis) 2.5 mg PO BID 05/11/23 02/09/24 Unknown History atorvastatin 80 mg tablet 80 mg PO DAILY 05/11/23 02/09/24 Unknown History oxybutynin chloride 10 mg 10 mg PO DAILY 05/11/23 02/09/24 Unknown History tablet,extended release 24 hr pantoprazole 40 mg tablet,delayed 40 mg PO DAILY 05/11/23 02/09/24 Unknown History release amiodarone 200 mg tablet 100 mg PO DAILY 08/03/23 02/09/24 Unknown History Physical Exam 2 Vital Signs: Vital Signs: Last Vital Signs Temp 100.6 F H 02/09/24 19:00 Pulse 63 02/09/24 19:00 Resp 16 02/09/24 19:00 BP 125/56 L 02/09/24 19:00 Pulse Ox 94 02/09/24 19:00 O2 Del Method Mechanical Ventil ation 02/09/24 19:00 O2 Flow Rate 2 02/09/24 13:53 FiO2 35 02/09/24 19:42 BMI result Body Mass Index 37.7 ?General:? Patient intubated ?HEENT:? Head is normocephalic, atraumatic, pupils equal round reactive to light accommodation bilaterally.?? Buccal mucosa is dry, Neck is supple ?Cardiac:? AFib, rate control. ?Pulmonary:? Lungs diminished throughout, no wheezes ?Abdomen:? ?Abdomen soft, non-tender, non-distended. Normal bowel sounds. No pulsatile mass. No hepatosplenomegaly. ?Musculoskeletal:? Minimal response to painful stimuli, Gait not assessed at this point. ?Neurologic:? No gag reflex, minimal response to painful stimuli. ?Skin: Skin is dry on bilateral foot, pale Vascular:? 2+ pulses upper and lower extremities distally.? Results Labs 02/10/24 07:14 02/10/24 07:15 Labs: Laboratory Results - last 24 hr 02/09/24 02/09/24 02/09/24 13:28 13:46 17:09 MCV 87.2 MCH 28.9 MCHC 33.2 RDW 15.3 Plt Count 160 D MPV 9.8 Immature Gran % (Auto) 0.6 H Neut % (Auto) 81.6 H Lymph % (Auto) 4.4 L [place] % (Auto) 13.2 H Eos % (Auto) 0.0 Baso % (Auto) 0.2 Lymph # (Auto) 0.7 L [place] # (Auto) 2.0 H Eos # (Auto) 0.0 Baso # (Auto) 0.0 Abs Immat Gran (auto) 0.09 H Absolute Neuts (auto) 12.3 H Absolute Nucleated RBC 0.000 Nucleated RBC % (auto) 0.0 Smear Tech's Comments VERIFIED PT 15.5 H INR 1.3 H APTT 37.0 H VBG pH VBG pCO2 VBG pO2 VBG HCO3 VBG O2 Saturation VBG Base Excess Anion Gap 20 Estim Creat Clear Calc 45.0 Estimated GFR 43 Random Glucose 175 H Lactic Acid 4.3 H* Lactic Acid F/U @ 2Hr 2.4 H* Calcium 9.0 Magnesium 1.7 Total Bilirubin 1.5 H AST 22 ALT 11 Alkaline Phosphatase 85 Troponin I High Sens 1352.2 H* D 3367.4 H* D Total Protein 7.2 Albumin 3.6 Urine Color Yellow Urine Appearance Clear Urine pH 6.5 Ur Specific Tropic 1.015 Urine Protein 300 (3+) H Urine Glucose (UA) Negative Urine Ketones 15 Urine Blood Large (3+) H Urine Nitrite Negative Ur Leukocyte Esterase Negative Urine RBC >20 H Urine WBC 0-5 Ur Squamous Epith Cells 0-2 Urine Bacteria None Seen Hyaline Casts 0-2 Influenza Type A (PCR) NEGATIVE Influenza Type B (PCR) NEGATIVE RSV RNA Qual (PCR) NEGATIVE SARS-CoV-2 RNA (RT-PCR) NEGATIVE 02/09/24 17:13 MCV MCH MCHC RDW Plt Count MPV Immature Gran % (Auto) Neut % (Auto) Lymph % (Auto) [place] % (Auto) Eos % (Auto) Baso % (Auto) Lymph # (Auto) [place] # (Auto) Eos # (Auto) Baso # (Auto) Abs Immat Gran (auto) Absolute Neuts (auto) Absolute Nucleated RBC Nucleated RBC % (auto) Smear Tech's Comments PT INR APTT VBG pH 7.42 VBG pCO2 34 VBG pO2 64 VBG HCO3 22 VBG O2 Saturation 89.0 VBG Base Excess -1.3 Anion Gap Estim Creat Clear Calc Estimated GFR Random Glucose Lactic Acid Lactic Acid F/U @ 2Hr Calcium Magnesium Total Bilirubin AST ALT Alkaline Phosphatase Troponin I High Sens Total Protein Albumin Urine Color Urine Appearance Urine pH Ur Specific [place] Urine Protein Urine Glucose (UA) Urine Ketones Urine Blood Urine Nitrite Ur Leukocyte Esterase Urine RBC Urine WBC Ur Squamous Epith Cells Urine Bacteria Hyaline Casts Influenza Type A (PCR) Influenza Type B (PCR) RSV RNA Qual (PCR) SARS-CoV-2 RNA (RT-PCR) Imaging Radiologist's Impressions: Impressions Chest X-Ray 02/09/24 14:04 IMPRESSION: No acute cardiopulmonary disease. Chest X-Ray 02/09/24 14:27 IMPRESSION: The tip of the endotracheal tube terminates 6 cm above the castillo. There is an enteric tube crossing the diaphragm. The tip overlies the gastric body. The heart and lungs are unchanged in appearance when compared with exam performed at 1:59 PM. Chest X-Ray 02/09/24 14:39 IMPRESSION: The endotracheal tube has been slightly advanced and now terminates 5.4 cm above the castillo. Head CT 02/09/24 15:00 IMPRESSION: 1. 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 2. No intracranial hemorrhage or skull fracture is seen. 3. No evidence of space occupying lesion could be found. 4. The current plain CT scan of the brain shows no diagnostic evidence of acute cerebral infarction. 5. Interval development of marked bilateral ethmoid and left maxillary sinusitis. Assessment and Plan (1) Altered mental status: Status: Acute (2) Sepsis: Status: Acute (3) Aspiration pneumonia: Status: Acute (4) CKD (chronic kidney disease): Status: Acute (5) PRABHU (acute kidney injury): Status: Acute Plan 83-year-old male with a past medical history of paroxysmal atrial fibrillation/flutter (on eliquis),? coronary artery disease,? NSTEMI, congestive heart failure? with LVEF 40-45%, hypertension,? hyperlipidemia, chronic renal disease stage III and sleep apnea?admitted for acute hypoxic respiratory failure requiring intubation and altered mental status Neuro:? ?Altered mental status- ? CT of the head did not show an acute bleed/ infarction,? but due to patient?s presentation as he was found covered in vomit and? with altered mental status,? stroke is a high possibility.? Last known? well as unknown,? patient was not able to receive tPA.? We will continue frequent neuro assessments,? and wean off sedation tomorrow.? Cardiac:? ?Sepsis:? no evidence of severe septic shock,? as patient as require any pressors,? source is likely aspiration pneumonia from vomit.? Received? 30 mL/kg? fluid resuscitation, vancomycin and ceftriaxone in the emergency department.? Will initiate Zosyn.? ?Elevated troponin-? likely demand,? no evidence of acute myocardial infarction.? Pulmonary: Acute? hypoxic respiratory failure-? ? patient was hypoxic and altered require emergent? intubation in the emergency department but later required emergent intubation. Likely due to aspiration event,? was covered with ceftriaxone and vanco. Will broaden with Zosyn. ? Wean off vent as tolerated Renal:??? CKD/ PRABHU - nonoliguric, ? received appropriate fluid resuscitation.? Will continue to monitor? renal indices.? Endo: ? ? no acute issues GI:? ? No acute issues ID: Sepsis-? from aspiration pneumonia,? cultures are pending. was covered with ceftriaxone and vanco. Will broaden with Zosyn.?? Heme/Onc:? No acute issues. Psych:? No acute issues. Miscellaneous: ? ED provider attempted to call? patient?s ,? but was told the patient?s has Alzheimer?s,? I spoke with patient daughter Chapis? ([phone])? updated regarding patient?s status Prophylaxis:? sub cut heparin,? IV pepcid? CODE: FULL CODE confirmed with daughter? ?Critical care time: x 90 min of critical care time? ?Case discussed with attending Dr. Jackson?
[2024-02-09 20:13] LABS: ~Lactic Acid-LAB USE ONLY 2.3 mmol/L (0.5-2.0)
[2024-02-09] MEDS: Chlorhexidine Gluc Oral Rinse 15 ML MOUTHWASH BUCCAL (22:18)
[2024-02-10] VITALS (43 sets, daily range): BP systolic 113–210; BP diastolic 49–135; PULSE 66–99; RESP 16–37; TEMP 34.8–39; O2SAT 90–99; BMI 38.5
[2024-02-10] MEDS: Heparin Sodium,Porcine 5,000 UNIT/ML VIAL 5000 UNIT SUBCUT ×3 (02:20→16:51)
[2024-02-10] MEDS: propofoL 1,000 MG/100 ML VIAL 27.79 MG IVCONT ×4 (03:00→22:02)
[2024-02-10 04:46] LABS: VBG Base Excess 0.9 mmol/L; VBG HCO3 21 mmol/L (22-26); VBG pCO2 24 mmHg; VBG pH 7.55 (7.32-7.43); VBG pO2 48 mmHg
[2024-02-10 05:13] LABS: Troponin-I High Sensitivity 837.8 ng/L (<3.5-35.0)
[2024-02-10] MEDS: Piperacillin Sodium/Tazobactam 3.375 GM in 0.9 % Sodium Chloride 50 ML IV ×4 (05:34→22:02)
[2024-02-10] MEDS: propofoL 1,000 MG/100 ML VIAL 20.84 MG IVCONT ×2 (05:38→11:41)
[2024-02-10 06:08] LABS: Venous Blood Gas Refer to POC result
[2024-02-10 07:47] LABS: Hematocrit 41.1 % (42.0-52.0); Hemoglobin 13.3 g/dl (14.0-18.0); Mean Corpuscular HGB Conc 32.4 g/dl (31.0-36.0); Mean Corpuscular Hemoglobin 28.5 pg (27.0-33.0); Mean Corpuscular Volume 88.2 fL (80.0-98.0); Mean Platelet Volume 10.8 fL (9.4-12.4); Platelet Count 129 X10*3/uL (160-400); Red Blood Count 4.66 X10*6/uL (4.60-5.80); Red Cell Distribution Width 15.7 % (11.0-16.0); White Blood Count 10.6 X10*3/uL (4.8-10.8)
[2024-02-10 07:59] LABS: Alanine Aminotransferase 11 U/L (0-40); Albumin Level 3.1 g/dL (3.5-5.0); Alkaline Phosphatase 62 U/L (39-117); Anion Gap 16 (12-20); Aspartate Amino Transferase 18 U/L (5-37); Bilirubin Total 1.5 mg/dL (0.0-1.0); Blood Urea Nitrogen 22 mg/dL (9-16); Calcium 8.7 mg/dL (8.4-10.2); Carbon Dioxide 22 mmol/L (22-29); Chloride 105 mmol/L (96-108); Creatinine Clr Calc Pharmacy 45.8; Estimated Glomerular Filt Rate 43; Glucose Random 107 mg/dL (60-115); Magnesium 1.7 mg/dL (1.6-2.6); Phosphorus 2.8 mg/dL (2.7-4.5); Potassium 3.7 mmol/L (3.3-5.1); Sodium 139 mmol/L (135-145); Total Protein 6.2 g/dL (6.5-8.0)
[2024-02-10 08:26] LABS: Band Neutrophils Percent 28 % (3-5); Lymphocytes Absolute Manual 1.2 X10*3/uL (1.2-4.9); Lymphocytes Percent Manual 11 % (20-40); Metamyelocytes Absolute 0.1 X10*3/uL; Metamyelocytes Percent 1 %; Monocytes Absolute Manual 0.2 X10*3/uL (0.1-1.2); Monocytes Percent Manual 2 % (2-11); Neutrophils Absolute Manual 9.1 X10*3/uL (2.0-8.3); Neutrophils Percent Manual 58 % (45-73)
[2024-02-10 08:30] LABS: Acanthocytes 2+ (3-5) /OIF; Burr Cells 3+ (>5) /OIF; Platelet Estimate SLIGHTLY DECREASED (NORMAL); Platelet Morphology Comment NORMAL; Polychromasia 1+ (0-2) /OIF; RBC Morphology NOTED; Schistocytes 3+ (>5) /OIF; Toxic Vacuolation PRESENT
[2024-02-10] MEDS: Metoprolol Tartrate 5 MG/5 ML VIAL IVPUSH (09:30)
[2024-02-10] MEDS: Chlorhexidine Gluc Oral Rinse 15 ML MOUTHWASH BUCCAL ×3 (09:36→22:02)
[2024-02-10] MEDS: Famotidine/PF 20 MG/2 ML VIAL IVPUSH (09:41)
--- NOTE | 2024-02-10 09:53 | PC.RT ---
Rt attempt psv with sedation lowered. Pt not following commands, psv from [id number] to 18 with continued tachypnea with rr mid 40's, pt noted to be hypertensive. PCV also tried for increased pt synchrony with no relief from rr >40. Pty returned to a/c vol at previous settings. Nursing aware.
[2024-02-10] MEDS: niCARdipine HCL 25 MG in 0.9 % Sodium Chloride 250 ML 52 MG IVCONT (09:57)
--- NOTE | 2024-02-10 10:54 | P.PNCC_ITS ---
Subjective Subjective Date of Service: 02/10/24 Interval History: 83-year-old gentleman with underlying paroxysmal AFib on anticoagulation, CAD, congestive heart failure with EF was 45%, chronic renal disease stage III admitted on 02/09/2024 with alteration of mental status and acute hypoxic respiratory failure likely secondary to aspiration event requiring intubation and ventilatory support. Patient started on empiric antibiotics. CT head demonstrated no intracranial bleed. He was admitted to the intensive care unit. Critical Care Time (minutes): 60 Physical Exam 2 Vital Signs: Vital Signs: Last Vital Signs Temp 99.9 F 02/10/24 10:00 Pulse 86 02/10/24 10:35 Resp 25 H 02/10/24 10:00 BP 201/135 H 02/10/24 10:35 Pulse Ox 91 L 02/10/24 10:00 O2 Del Method Mechanical Ventil ation 02/10/24 10:00 O2 Flow Rate 40 02/09/24 22:00 FiO2 35 02/10/24 10:00 BMI result Body Mass Index 38.5 Const: General: no acute distress and other (Sedated on the vent) Eyes: Sclerae: sclerae normal EOM: EOMs intact bilaterally Neck: Neck: Yes no lymphadenopathy, Yes trachea midline and Yes supple Resp: Auscultation: clear to auscultation bilaterally Cardio: Rate: regular rate Rhythm: abnormal rhythm irregularly irregular Heart sounds: no gallops, no murmurs and no rubs GI: Palpation (GI): Soft to palpation and Other GI palpation findings present ( Nontender) Auscultation: normal bowel sounds Extrem: General: No clubbing, No cyanosis and Yes edema (Trace bilateral) Objective Data Labs 02/10/24 07:14 02/10/24 07:15 Labs: Laboratory Results - last 24 hr 02/09/24 02/09/24 02/09/24 13:28 13:46 17:09 WBC 15.1 H RBC 4.67 Hgb 13.5 L Hct 40.7 L MCV 87.2 MCH 28.9 MCHC 33.2 RDW 15.3 Plt Count 160 D MPV 9.8 Immature Gran % (Auto) 0.6 H Neut % (Auto) 81.6 H Lymph % (Auto) 4.4 L [place] % (Auto) 13.2 H Eos % (Auto) 0.0 Baso % (Auto) 0.2 Lymph # (Auto) 0.7 L [place] # (Auto) 2.0 H Eos # (Auto) 0.0 Baso # (Auto) 0.0 Abs Immat Gran (auto) 0.09 H Absolute Neuts (auto) 12.3 H Absolute Nucleated RBC 0.000 Nucleated RBC % (auto) 0.0 Neutrophils % (Manual) Band Neutrophils % Lymphocytes % (Manual) Monocytes % (Manual) Metamyelocytes % Abs Neuts (Manual) Lymphocytes # (Manual) Monocytes # (Manual) Metamyelocytes # Toxic Vacuolation Platelet Estimate Plt Morphology Comment RBC Morphology Polychromasia [place] Cells Acanthocytes (Spur) Schistocytes Smear Tech's Comments VERIFIED PT 15.5 H INR 1.3 H APTT 37.0 H VBG pH VBG pCO2 VBG pO2 VBG HCO3 VBG O2 Saturation VBG Base Excess Sodium 138 Potassium 4.3 Chloride 103 Carbon Dioxide 19 L Anion Gap 20 BUN 19 H Creatinine 1.56 H Estim Creat Clear Calc 45.0 Estimated GFR 43 Random Glucose 175 H Lactic Acid 4.3 H* Lactic Acid F/U @ 2Hr 2.4 H* Lactic Acid F/U @ 4Hr Calcium 9.0 Phosphorus Magnesium 1.7 Total Bilirubin 1.5 H AST 22 ALT 11 Alkaline Phosphatase 85 Troponin I High Sens 1352.2 H* D 3367.4 H* D Total Protein 7.2 Albumin 3.6 Urine Color Yellow Urine Appearance Clear Urine pH 6.5 Ur Specific [place] 1.015 Urine Protein 300 (3+) H Urine Glucose (UA) Negative Urine Ketones 15 Urine Blood Large (3+) H Urine Nitrite Negative Ur Leukocyte Esterase Negative Urine RBC >20 H Urine WBC 0-5 Ur Squamous Epith Cells 0-2 Urine Bacteria None Seen Hyaline Casts 0-2 Influenza Type A (PCR) NEGATIVE Influenza Type B (PCR) NEGATIVE RSV RNA Qual (PCR) NEGATIVE SARS-CoV-2 RNA (RT-PCR) NEGATIVE 02/09/24 02/09/24 02/10/24 17:13 19:37 04:36 WBC RBC Hgb Hct MCV MCH MCHC RDW Plt Count MPV Immature Gran % (Auto) Neut % (Auto) Lymph % (Auto) [place] % (Auto) Eos % (Auto) Baso % (Auto) Lymph # (Auto) [place] # (Auto) Eos # (Auto) Baso # (Auto) Abs Immat Gran (auto) Absolute Neuts (auto) Absolute Nucleated RBC Nucleated RBC % (auto) Neutrophils % (Manual) Band Neutrophils % Lymphocytes % (Manual) Monocytes % (Manual) Metamyelocytes % Abs Neuts (Manual) Lymphocytes # (Manual) Monocytes # (Manual) Metamyelocytes # Toxic Vacuolation Platelet Estimate Plt Morphology Comment RBC Morphology Polychromasia [place] Cells Acanthocytes (Spur) Schistocytes Smear Tech's Comments PT INR APTT VBG pH 7.42 7.55 H VBG pCO2 34 24 VBG pO2 64 48 VBG HCO3 22 21 L VBG O2 Saturation 89.0 80.0 VBG Base Excess -1.3 0.9 Sodium Potassium Chloride Carbon Dioxide Anion Gap BUN Creatinine Estim Creat Clear Calc Estimated GFR Random Glucose Lactic Acid Lactic Acid F/U @ 2Hr Lactic Acid F/U @ 4Hr 2.3 H* Calcium Phosphorus Magnesium Total Bilirubin AST ALT Alkaline Phosphatase Troponin I High Sens Total Protein Albumin Urine Color Urine Appearance Urine pH Ur Specific [place] Urine Protein Urine Glucose (UA) Urine Ketones Urine Blood Urine Nitrite Ur Leukocyte Esterase Urine RBC Urine WBC Ur Squamous Epith Cells Urine Bacteria Hyaline Casts Influenza Type A (PCR) Influenza Type B (PCR) RSV RNA Qual (PCR) SARS-CoV-2 RNA (RT-PCR) 02/10/24 02/10/24 02/10/24 04:40 07:14 07:15 WBC 10.6 RBC 4.66 Hgb 13.3 L Hct 41.1 L MCV 88.2 MCH 28.5 MCHC 32.4 RDW 15.7 Plt Count 129 L MPV 10.8 Immature Gran % (Auto) Cancelled Neut % (Auto) Cancelled Lymph % (Auto) Cancelled [place] % (Auto) Cancelled Eos % (Auto) Cancelled Baso % (Auto) Cancelled Lymph # (Auto) Cancelled [place] # (Auto) Cancelled Eos # (Auto) Cancelled Baso # (Auto) Cancelled Abs Immat Gran (auto) Cancelled Absolute Neuts (auto) Cancelled Absolute Nucleated RBC 0.000 Nucleated RBC % (auto) 0.0 Neutrophils % (Manual) 58 Band Neutrophils % 28 H Lymphocytes % (Manual) 11 L Monocytes % (Manual) 2 Metamyelocytes % 1 Abs Neuts (Manual) 9.1 H Lymphocytes # (Manual) 1.2 Monocytes # (Manual) 0.2 Metamyelocytes # 0.1 Toxic Vacuolation PRESENT Platelet Estimate SLIGHTLY DECREASED Plt Morphology Comment NORMAL RBC Morphology NOTED Polychromasia 1+ (0-2) [place] Cells 3+ (>5) Acanthocytes (Spur) 2+ (3-5) Schistocytes 3+ (>5) Smear Tech's Comments PT INR APTT VBG pH VBG pCO2 VBG pO2 VBG HCO3 VBG O2 Saturation VBG Base Excess Sodium 139 Potassium 3.7 Chloride 105 Carbon Dioxide 22 Anion Gap 16 BUN 22 H Creatinine 1.55 H Estim Creat Clear Calc 45.8 Estimated GFR 43 Random Glucose 107 Lactic Acid Lactic Acid F/U @ 2Hr Lactic Acid F/U @ 4Hr Calcium 8.7 Phosphorus 2.8 Magnesium 1.7 Total Bilirubin 1.5 H AST 18 ALT 11 Alkaline Phosphatase 62 Troponin I High Sens 837.8 H* D Total Protein 6.2 L Albumin 3.1 L Urine Color Urine Appearance Urine pH Ur Specific [place] Urine Protein Urine Glucose (UA) Urine Ketones Urine Blood Urine Nitrite Ur Leukocyte Esterase Urine RBC Urine WBC Ur Squamous Epith Cells Urine Bacteria Hyaline Casts Influenza Type A (PCR) Influenza Type B (PCR) RSV RNA Qual (PCR) SARS-CoV-2 RNA (RT-PCR) Progress Note: A&P Assessment and plan (1) Aspiration pneumonia: Status: Acute (2) Altered mental status: Status: Acute (3) Acute respiratory failure with hypoxia: Status: Acute (4) Cardiomyopathy: Status: Acute (5) Atrial flutter with rapid ventricular response: Status: Acute Plan Assessment: 83-year-old gentleman admitted with acute hypoxic respiratory failure and alteration of mental status likely secondary to aspiration event now requiring ventilatory support. Plan: Neuro: No acute issues. Cardiac: No acute issues. Underlying systolic congestive heart failure and AFib, chronic. Pulmonary: Acute hypoxic respiratory failure now requiring ventilatory support, continue to titrate off as tolerated. Likely secondary to aspiration event. Empirically covered for aspiration pneumonitis versus pneumonia. Renal: No acute issues. Endo: No acute issues. GI: No acute issues. ID: No acute issues Heme/Onc: No acute issues. Psych: No acute issues. Miscellaneous: No acute issues. Prophylaxis: Heparin, famotidine Diet: Nothing by mouth Critical care time spent: 60 minutes Quality Stroke Does the patient have a stroke diagnosis?: No VTE Prior VTE?: No VTE Risk Level:: Medical - moderate - high VTE Device Contraindication: Treatment Not Indicated VTE Drug Contraindication: N/A - Med Ordered
[2024-02-10] MEDS: Midazolam HCl/PF 2 MG/2 ML VIAL IVPUSH (10:55)
[2024-02-10] MEDS: niCARdipine HCL 25 MG in 0.9 % Sodium Chloride 250 ML 130 MG IVCONT (12:15)
[2024-02-10] MEDS: niCARdipine HCL 25 MG in 0.9 % Sodium Chloride 250 ML 104 MG IVCONT (15:03)
[2024-02-10] MEDS: niCARdipine HCL 25 MG in 0.9 % Sodium Chloride 250 ML 78 MG IVCONT (17:37)
[2024-02-11] VITALS (30 sets, daily range): BP systolic 110–172; BP diastolic 49–87; PULSE 54–106; RESP 17–32; TEMP 34.8–38; O2SAT 89–98; BMI 39.0
[2024-02-11] MEDS: propofoL 1,000 MG/100 ML VIAL 27.79 MG IVCONT ×3 (01:36→08:14)
[2024-02-11] MEDS: Heparin Sodium,Porcine 5,000 UNIT/ML VIAL 5000 UNIT SUBCUT ×3 (01:37→17:31)
[2024-02-11 04:56] LABS: VBG Base Excess 1.4 mmol/L; VBG HCO3 23 mmol/L (22-26); VBG pCO2 29 mmHg; VBG pH 7.51 (7.32-7.43); VBG pO2 56 mmHg
[2024-02-11 05:00] LABS: MANUAL DIFF FLAG NO
[2024-02-11 05:03] LABS: Basophils Percent Auto 0.4 % (0-2); Eosinophils Absolute Auto 0.1 X10*3/uL (0.0-0.4); Eosinophils Percent Auto 0.9 % (0-4); Hematocrit 35.7 % (42.0-52.0); Hemoglobin 11.7 g/dl (14.0-18.0); Imm Gran Abs Auto 0.05 X10*3/uL (0.00-0.03); Imm Gran Pct Auto 0.6 % (0.0-0.4); Lymphocytes Absolute Auto 0.7 X10*3/uL (1.2-4.9); Lymphocytes Percent Auto 8.3 % (20-40); Mean Corpuscular HGB Conc 32.8 g/dl (31.0-36.0); Mean Corpuscular Hemoglobin 28.3 pg (27.0-33.0); Mean Corpuscular Volume 86.2 fL (80.0-98.0); Mean Platelet Volume 10.4 fL (9.4-12.4); Monocytes Absolute Auto 0.8 X10*3/uL (0.1-1.2); Neutrophils Absolute Auto 7.2 x10*3/uL (2.0-8.3); Neutrophils Percent Auto 80.8 % (45-73); Platelet Count 129 X10*3/uL (160-400); Red Blood Count 4.14 X10*6/uL (4.60-5.80); Red Cell Distribution Width 15.2 % (11.0-16.0); White Blood Count 8.9 X10*3/uL (4.8-10.8)
[2024-02-11] MEDS: Piperacillin Sodium/Tazobactam 3.375 GM in 0.9 % Sodium Chloride 50 ML IV ×4 (05:08→22:30)
[2024-02-11 05:17] LABS: Venous Blood Gas Refer to POC result
[2024-02-11 05:24] LABS: Albumin Level 2.9 g/dL (3.5-5.0); Anion Gap 15 (12-20); Blood Urea Nitrogen 27 mg/dL (9-16); Calcium 8.4 mg/dL (8.4-10.2); Carbon Dioxide 22 mmol/L (22-29); Chloride 106 mmol/L (96-108); Estimated Glomerular Filt Rate 53; Glucose Random 108 mg/dL (60-115); Magnesium 1.9 mg/dL (1.6-2.6); Phosphorus 2.8 mg/dL (2.7-4.5); Potassium 3.7 mmol/L (3.3-5.1); Sodium 139 mmol/L (135-145)
[2024-02-11] MEDS: Albumin Human 25 % 100 ML IV ×3 (08:22→19:30)
[2024-02-11] MEDS: Potassium Chloride Packet 20 MEQ PACKET 40 MEQ OG-TUBE (08:26)
[2024-02-11] MEDS: Chlorhexidine Gluc Oral Rinse 15 ML MOUTHWASH BUCCAL (08:26)
[2024-02-11] MEDS: Famotidine/PF 20 MG/2 ML VIAL IVPUSH (08:42)
--- NOTE | 2024-02-11 10:07 | MHC.CM.PN ---
Addendum entered by Irais Esteban RN 02/11/24 11:44: PT NOW EXTUIBATED Original Note: IMM 02/11/24, EMR REVIEWED, PT W/MECHANICAL VENT AND PROPOFOL, CM CONTACTED PT'S DTR MICHELLE AT [phone], MICHELLE REPORTS PT LIVES W/HIS WHO HAS EARLY DEMENTIA AND PT CARES FOR HER, PT DOES HAVE A CANE/WALKER AT HOME HOWEVER DOES NOT USE THEM NORMALLY, THEY WERE FOR AFTER ORTHO PROCEDURE IN PAST, PT HAS NO SERVICES AT HOME AND STILL DRIVES AND IS A&O AT BASELINE. MICHELLE CONFIRMS PT'S PCP IS KALINA GURROLA, MICHELLE BELIEVES THERE SHOULD BE ANOTHER HCP HOWEVER CM WILL REVISIT W/PT WHEN HE IS ABLE TO ANSWER CM QUESTIONS.
[2024-02-11] MEDS: Haloperidol Lactate 5 MG/ML VIAL IVPUSH (10:53)
--- NOTE | 2024-02-11 11:00 | P.PNCC_ITS ---
Subjective Subjective Date of Service: 02/11/24 Interval History: 83-year-old gentleman with underlying paroxysmal AFib on anticoagulation, CAD, congestive heart failure with EF was 45%, chronic renal disease stage III admitted on 02/09/2024 with alteration of mental status and acute hypoxic respiratory failure likely secondary to aspiration event requiring intubation and ventilatory support. Patient started on empiric antibiotics. CT head demonstrated no intracranial bleed. He was admitted to the intensive care unit. Today with improved tolerance of pressor support wire extubated, however continues to require oral/nasotracheal suctioning for recurrent aspirations, may require re-intubation. Critical Care Time (minutes): 60 Physical Exam 2 Vital Signs: Vital Signs: Last Vital Signs Temp 99.9 F 02/11/24 09:00 Pulse 84 02/11/24 10:00 Resp 26 H 02/11/24 10:00 BP 157/49 H 02/11/24 10:00 Pulse Ox 89 L 02/11/24 10:00 O2 Del Method Oxymask 02/11/24 10:00 O2 Flow Rate 10 02/11/24 10:00 FiO2 35 02/11/24 09:29 BMI result Body Mass Index 39.0 Const: General: no acute distress and confusion Orientation/consciousness: confusion Eyes: Sclerae: sclerae normal EOM: EOMs intact bilaterally Neck: Neck: Yes no lymphadenopathy, Yes trachea midline and Yes supple Resp: Effort & Inspection: normal respiratory effort and no respiratory distress Auscultation: clear to auscultation bilaterally Cardio: Rate: regular rate Rhythm: regular rhythm Heart sounds: no gallops, no murmurs and no rubs GI: Palpation (GI): Soft to palpation and Other GI palpation findings present ( Nontender) Auscultation: normal bowel sounds Neuro: General: confusion Extrem: General: Yes no pedal edema, No clubbing and No cyanosis Objective Data Labs 02/11/24 04:48 02/11/24 04:48 Labs: Laboratory Results - last 24 hr 02/11/24 02/11/24 04:46 04:48 WBC 8.9 RBC 4.14 L Hgb 11.7 L Hct 35.7 L MCV 86.2 MCH 28.3 MCHC 32.8 RDW 15.2 Plt Count 129 L MPV 10.4 Immature Gran % (Auto) 0.6 H Neut % (Auto) 80.8 H Lymph % (Auto) 8.3 L [place] % (Auto) 9.0 Eos % (Auto) 0.9 Baso % (Auto) 0.4 Lymph # (Auto) 0.7 L [place] # (Auto) 0.8 Eos # (Auto) 0.1 Baso # (Auto) 0.0 Abs Immat Gran (auto) 0.05 H Absolute Neuts (auto) 7.2 Absolute Nucleated RBC 0.000 Nucleated RBC % (auto) 0.0 VBG pH 7.51 H VBG pCO2 29 VBG pO2 56 VBG HCO3 23 VBG O2 Saturation 85.0 VBG Base Excess 1.4 Sodium 139 Potassium 3.7 Chloride 106 Carbon Dioxide 22 Anion Gap 15 BUN 27 H Creatinine 1.29 Estim Creat Clear Calc 55.0 Estimated GFR 53 Random Glucose 108 Calcium 8.4 Phosphorus 2.8 Magnesium 1.9 Albumin 2.9 L Microbiology Microbiology Results: Microbiology 02/09/24 13:28 Blood - Venous Blood Culture - Preliminary Haemophilus species 02/09/24 13:28 Blood - Venous Blood Culture - Preliminary No growth after 24 hours. Progress Note: A&P Assessment and plan (1) Acute respiratory failure with hypoxia: Status: Acute (2) Aspiration pneumonia: Status: Acute (3) Altered mental status: Status: Acute (4) PAF (paroxysmal atrial fibrillation): Status: Acute Plan Assessment: 83-year-old gentleman admitted with acute hypoxic respiratory failure and alteration of mental status likely secondary to aspiration event now requiring ventilatory support. Plan: Neuro: No acute issues. Cardiac: No acute issues. Underlying systolic congestive heart failure and AFib, chronic. Pulmonary: Acute hypoxic respiratory failure now requiring ventilatory support, with improved pressor support trials today, extubated. However, continues to require significant suctioning, may require re-intubation.. Empirically covered for aspiration pneumonitis versus pneumonia. Renal: No acute issues. Endo: No acute issues. GI: No acute issues. ID: Haemophilus bacteremia 1/2 bottles, may be contaminant, continue Zosyn. Heme/Onc: No acute issues. Psych: No acute issues. Miscellaneous: No acute issues. Prophylaxis: Heparin Diet: Nothing by mouth Critical care time spent: 60 minutes Quality Stroke Does the patient have a stroke diagnosis?: No VTE Prior VTE?: No VTE Risk Level:: Medical - moderate - high VTE Device Contraindication: Treatment Not Indicated VTE Drug Contraindication: N/A - Med Ordered
[2024-02-11] MEDS: dexmedeTOMIDidine HCL/NS 400 MCG/100 ML INFUS..BTL 29.95 MCG IVCONT (11:23)
[2024-02-11] MEDS: dexmedeTOMIDidine HCL/NS 400 MCG/100 ML INFUS..BTL 44.93 MCG IVCONT (13:09)
[2024-02-11] MEDS: Midazolam HCl/PF 2 MG/2 ML VIAL 1 MG IVPUSH (14:08)
[2024-02-11] MEDS: dexmedeTOMIDidine HCL/NS 400 MCG/100 ML INFUS..BTL 32.95 MCG IVCONT (15:37)
[2024-02-11] MEDS: dexmedeTOMIDidine HCL/NS 400 MCG/100 ML INFUS..BTL 20.97 MCG IVCONT (19:13)
[2024-02-11] MEDS: Furosemide 20 MG/2 ML VIAL IVPUSH (19:42)
[2024-02-12] VITALS (43 sets, daily range): BP systolic 108–257; BP diastolic 48–89; PULSE 44–128; RESP 18–28; TEMP 34.9–37.8; O2SAT 1–99; BMI 37.3
--- NOTE | 2024-02-12 | ECG_ITS ---
Test Reason : qtc check Blood Pressure : / mmHG Vent. Rate : 065 BPM Atrial Rate : 065 BPM P-R Int : 244 ms QRS Dur : 098 ms QT Int : 462 ms P-R-T Axes : 064 -36 010 degrees QTc Int : 480 ms Sinus rhythm with 1st degree A-V block Left axis deviation Incomplete right bundle branch block Minimal voltage criteria for LVH, may be normal variant ( R in aVL ) Anteroseptal infarct (cited on or before 04-AUG-2021) Abnormal ECG When compared with ECG of 09-FEB-2024 13:30, Significant changes have occurred Referred By: Grisel Marte Electronically Signed By:Ascencion Holland
[2024-02-12] MEDS: dexmedeTOMIDidine HCL/NS 400 MCG/100 ML INFUS..BTL 14.98 MCG IVCONT (00:06)
[2024-02-12] MEDS: Albumin Human 25 % 100 ML IV (01:24)
[2024-02-12] MEDS: Heparin Sodium,Porcine 5,000 UNIT/ML VIAL 5000 UNIT SUBCUT ×3 (01:25→17:04)
[2024-02-12] MEDS: Midazolam HCl/PF 2 MG/2 ML VIAL 1 MG IVPUSH (03:54)
[2024-02-12] MEDS: Haloperidol Lactate 5 MG/ML VIAL IM (04:25)
[2024-02-12] MEDS: dexmedeTOMIDidine HCL/NS 400 MCG/100 ML INFUS..BTL 44.93 MCG IVCONT ×2 (04:30→06:21)
--- NOTE | 2024-02-12 05:08 | PC.NURSE ---
CARE ASSUMED 7PM..PER SHIFT REPORT PATIENT EXTUBATED APPROX 10AM 02/11/24..REMAINS CONFUSED/DISORIENTED...MUMBLES AND/OR CALLS OUT INCOHERENTLY...PER SHIFT REPORT PREVIOUSL RECEIVED HALDOL AND VERSED AND PRECIDEX DRIP FOR SEVERE INTERMITTANT AGITATION....PRECIDEX DRIP TITRATED FROM 0.7 TO 0.5 MCG/KG/HR PER SEP...PER REPORT PATIENT PREVIOUSLY EXTUBATED TO 8 L/M O2 OXIMYZER MASK AND REQUIRED TITRATION TO 12 L/M...LUNGS COARSE CRACKLES LOWER 1/2 AT START OF SHIFT..LASIX 20MG IV GIVEN PER ICU FOUNDRY PATTERNMAKER WITH DIURESIS...MONITOR S.BRADYCARDIA HR 50-54 ON PRECIDEX DRIP...INCREASED AGITATION AND RESTLESS OVERNIGHT..ATTEMPTING TO CLIMB OOB/PULL OM LINES AND/OR O2...PRECIDEX DRIP TITRATED PER SEP....BILATERAL WRIST RESTRAINTS PLACED 10:30PM FOR PATIENT/LINE SAFETY 10:30PM PER ICU FOUNDRY PATTERNMAKER....MARKED AGITATION THIS AM...DECREASED SAO2 WITH AGITATION...PRECIDEX DRIP TITRATED UPWARD PER SEP...VERSED 1MG IV PRN GIVEN AND HALDOL 5MG IV X1 GIVEN...PRECIDEX MAX DOSE 1.5 MCG/KG/HR...MONITOR REVERTED TO ATRIAL FIB HR 130'S DURING MARKED AGITATION...GRADUAL RESTFUL EFFECT WITH VERSED/HALDOL/PRECIDEX...REMAINS ATRIAL FIB HR 90'S-100'S..SAO2 90-91% WITH OXIMASK 15 L/M..FOUNDRY PATTERNMAKER AWARE ..CURRENTLY DOZING..NO DISTRESS
[2024-02-12] MEDS: Piperacillin Sodium/Tazobactam 3.375 GM in 0.9 % Sodium Chloride 50 ML IV ×4 (05:21→23:28)
[2024-02-12] MEDS: Levothyroxine Sodium 100 MCG/5 ML VIAL 50 MCG IVPUSH (05:22)
[2024-02-12 05:34] LABS: MANUAL DIFF FLAG NO
[2024-02-12 05:34] LABS: VBG Base Excess 0.7 mmol/L; VBG HCO3 24 mmol/L (22-26); VBG pCO2 33 mmHg; VBG pH 7.46 (7.32-7.43); VBG pO2 47 mmHg
[2024-02-12 05:35] LABS: Basophils Percent Auto 0.1 % (0-2); Eosinophils Percent Auto 0.4 % (0-4); Hematocrit 27.4 % (42.0-52.0); Hemoglobin 9.1 g/dl (14.0-18.0); Imm Gran Abs Auto 0.04 X10*3/uL (0.00-0.03); Imm Gran Pct Auto 0.5 % (0.0-0.4); Lymphocytes Absolute Auto 0.6 X10*3/uL (1.2-4.9); Lymphocytes Percent Auto 7.1 % (20-40); Mean Corpuscular HGB Conc 33.2 g/dl (31.0-36.0); Mean Corpuscular Hemoglobin 29.3 pg (27.0-33.0); Mean Corpuscular Volume 88.1 fL (80.0-98.0); Mean Platelet Volume 10.6 fL (9.4-12.4); Monocytes Absolute Auto 0.5 X10*3/uL (0.1-1.2); Monocytes Percent Auto 6.7 % (2-11); Neutrophils Absolute Auto 6.6 x10*3/uL (2.0-8.3); Neutrophils Percent Auto 85.2 % (45-73); Platelet Count 133 X10*3/uL (160-400); Red Blood Count 3.11 X10*6/uL (4.60-5.80); Red Cell Distribution Width 15.4 % (11.0-16.0); White Blood Count 7.8 X10*3/uL (4.8-10.8)
[2024-02-12 05:35] LABS: Venous Blood Gas Refer to POC result
[2024-02-12 05:53] LABS: Albumin Level 3.7 g/dL (3.5-5.0); Anion Gap 18 (12-20); Blood Urea Nitrogen 32 mg/dL (9-16); Calcium 9.1 mg/dL (8.4-10.2); Carbon Dioxide 22 mmol/L (22-29); Chloride 109 mmol/L (96-108); Creatinine Clr Calc Pharmacy 50.6; Estimated Glomerular Filt Rate 49; Glucose Random 125 mg/dL (60-115); Phosphorus 3.1 mg/dL (2.7-4.5); Sodium 145 mmol/L (135-145)
--- NOTE | 2024-02-12 07:00 | CA_ITS ---
Transthoracic Echocardiogram Amended Patient (Last, First, Middle): Ramon Atkinson A Gender: Male Date of : 1940 Age: 83 Procedure Date: 02/12/2024 Procedure Type: Transthoracic Echocardiogram Location: ICU Height: 175.26 cm Weight: 114.31 kg BSA: 2.28 m2 Heart Rate: bpm BP: 120 / 87 mmHg Stone Planer: MEGHAN Referring MD: Yon Sheldon NP Review Rn: Dante Briones MD Symptoms: Elevated trop Study Quality: Technically Difficult w/Contrast ECG Rhythm: Sinus with extra beats Conclusions: - 1. Technically limited study 2. Mildly reduced LV ejection fraction at 45-50% with grade 2 diastolic dysfunction with regional wall motion abnormality consistent with ischemic cardiomyopathy 3. Oquc-bk-urantscw aortic stenosis 4. Mitral calcification with mild mitral regurgitation 5. Elevated right atrial pressures 6. Mildly dilated ascending aorta at 3.8 cm Findings Procedure Information Contrast agent, definity, is being given per protocol without apparent complications. Left Ventricle Normal left ventricular cavity size. There is normal left ventricular wall thickness. The left ventricular systolic function is mildly decreased. The visually estimated ejection fraction is between 45-50%. Spectral Doppler is indicative of a pseudonormal filling pattern. E/E prime ratio is >15, consistent with elevated filling pressures. Evidence suggests grade II (moderate) diastolic dysfunction. Wall Motion Rest Echo Findings The inferoseptal wall and basal inferior segment are hypokinetic. All other scored wall segments showed normal motion. Right Ventricle The right ventricle was not well visualized. There is moderately decreased right ventricular systolic function. Atria The left atrium is mildly dilated. Interatrial shunt cannot be excluded. The right atrium was not well visualized. Aortic Valve The aortic valve was not well visualized. There is mild calcification of the aortic valve. There is mild to moderate aortic valve stenosis. There is no aortic valve regurgitation. Mitral Valve There is mild anterior and moderate posterior mitral leaflet thickening. There is moderate mitral annular calcification. There is mild mitral valve regurgitation. There is no mitral valve stenosis. Pulmonic Valve The pulmonic valve was not well visualized. Tricuspid Valve The tricuspid valve was not well visualized. Mildly elevated right atrial pressure. Great Vessels The pulmonary artery was not well visualized. There is mild dilatation of the ascending aorta measuring 3.80 cm. Venous The inferior vena cava is mildly dilated and collapses less than 50% with inspiration. Pericardium/Pleural The pericardium was not well visualized. Measurements 2D Linear Measurements IVSd: 1.75 0.6-0.9/0.6-1.0 cm LVIDd: 4.81 3.9-5.3/4.2-5.9 cm LVIDd Index: 2.11 2.4-3.2/2.2-3.1 cm/m2 LVIDs: 4.14 2.0-3.6 cm LVPWd: 1.02 0.7-1.1 cm LA Diam: 4.60 2.7-3.8/3.0-4.0 cm LAIDs Index: 2.02 1.5-2.3 cm/m2 LV Mass: 337.20 67-162/88-224 g LV Mass Index: 147.90 43-95/49-115 g/m2 LVOT Diam: 2.40 3.0+(-)1.3 cm 2D Volumes LA Vol: 33.40 2D Systolic Function EF 4C: 46.70 >55% EF 2C: 49.90 >55% EF BiP: 48.30 >55% Mitral Valve MV Pk E: 1.16 Aortic Valve AoV Pk Moshe: 2.34 AoV Mn Moshe: 1.65 AoV VTI: 0.58 AoV Pk Grad: 22.00 Aov Mn Grad: 12.00 VALENTIN Cont.VTI: 1.47 LVOT LVOT Pk Moshe: 0.81 LVOT Mn Moshe: 0.54 LVOT VTI: 0.19 LVOT Pk Grad: 3.00 LVOT Mn Grad: 1.00 LVOT Diam: 2.40 LVOT Area: 4.52 Diastolic Function MV Pk E: 1.16 Right Ventricle TVS' Moshe: 9.99 Great Vessels Aorta Sinus of Valsalva: 3.60 2.0-3.5 cm Ao Asc: 3.80 2.1-3.4 cm Pulmonary Valve PV Pk Moshe: 0.69 Peak PV Grad: 2.00 Updated in Other Vendor System with Status of Final Dante Briones MD electronically signed on 02/12/2024 10:52:59 AM with status of Final
--- NOTE | 2024-02-12 08:27 | P.PNCC_ITS ---
Subjective Subjective Date of Service: 02/12/24 Critical Care Time (minutes): 60 Physical Exam 2 Vital Signs: Vital Signs: Last Vital Signs Temp 99.0 F 02/12/24 08:00 Pulse 96 02/12/24 08:00 Resp 25 H 02/12/24 08:00 BP 120/87 02/12/24 08:00 Pulse Ox 91 L 02/12/24 08:00 O2 Del Method Oxymask 02/12/24 08:00 O2 Flow Rate 12 02/12/24 08:00 FiO2 35 02/11/24 09:29 BMI result Body Mass Index 37.3 Const: Other: active, though does not respond to questions/commands General: no acute distress and well developed Orientation/consciousness: No oriented to person, No oriented to place and No oriented to time HEENT: Head: Yes normal to inspection, Yes normocephalic and Yes atraumatic Eyes: General: appearance normal, both eyes and all related structures Neck: Neck: Yes normal visual inspection, Yes full ROM, Yes trachea midline and Yes supple Chest: Chest palpation & inspection: normal inspection of the chest Resp: Other: some appreciable rhonchi; no appreciable rales, wheezing Effort & Inspection: normal respiratory effort Cardio: Rate: bradycardic Rhythm: regular rhythm GI: Inspection: Yes normal to inspection, No distended and No incision P alpation (GI): Soft to palpation, not firm, nontender, no guarding and not rigid : Male General Exam: Yes normal external exam Skin: General skin exam: no rashes or lesions noted Neuro: General: No oriented to person, No oriented to place, No oriented to time, tone normal, moves all extremities and no focal motor deficits Extrem: General: Yes normal to inspection, Yes full ROM, Yes capillary refill normal and Yes no clubbing, cyanosis or edema Psych: Other: unable to assess; appears to have hyper-active delirium Objective Data Labs 02/12/24 05:27 02/12/24 05:27 Labs: Laboratory Results - last 24 hr 02/12/24 02/12/24 05:25 05:27 WBC 7.8 RBC 3.11 L D Hgb 9.1 L D Hct 27.4 L D MCV 88.1 MCH 29.3 MCHC 33.2 RDW 15.4 Plt Count 133 L MPV 10.6 Immature Gran % (Auto) 0.5 H Neut % (Auto) 85.2 H Lymph % (Auto) 7.1 L [place] % (Auto) 6.7 Eos % (Auto) 0.4 Baso % (Auto) 0.1 Lymph # (Auto) 0.6 L [place] # (Auto) 0.5 Eos # (Auto) 0.0 Baso # (Auto) 0.0 Abs Immat Gran (auto) 0.04 H Absolute Neuts (auto) 6.6 Absolute Nucleated RBC 0.000 Nucleated RBC % (auto) 0.0 VBG pH 7.46 H VBG pCO2 33 VBG pO2 47 VBG HCO3 24 VBG O2 Saturation 76.0 VBG Base Excess 0.7 Sodium 145 Potassium 4.0 Chloride 109 H Carbon Dioxide 22 Anion Gap 18 BUN 32 H Creatinine 1.38 Estim Creat Clear Calc 50.6 Estimated GFR 49 Random Glucose 125 H Calcium 9.1 D Phosphorus 3.1 Magnesium 2.0 Albumin 3.7 Microbiology Microbiology Results: Microbiology 02/09/24 13:28 Blood - Venous Blood Culture - Preliminary No growth after 48 hours. 02/09/24 13:28 Blood - Venous Blood Culture - Preliminary Haemophilus species Progress Note: A&P Assessment and plan (1) Acute respiratory failure with hypoxia: Status: Acute (2) Aspiration pneumonia: Status: Acute (3) Altered mental status: Status: Acute Plan Patient is a 83 Y M with coronary artery disease, c/b heart failure w/ reduced EF 45%, atrial fibrillation, chronic renal insufficiency, presenting initially on 02/08 w/ acute hypoxic respiratory failure thought to be d/t aspiration, intubated, extubated N: hyperactive delirium; on dexmedetomidine gtt; wean as tolerated; to add IV/PO regimen as tolerated CV: no acute issues; CAD, c/b HF, atrial fibrillation R: acute hypoxic respiratory failure, likely d/t aspiration, intubated, extubated; c/f ongoing aspiration GI: NPO while encephalopathic; advance diet as tolerated : no acute issues H: no acute issues ID: [id number] w/ heamophilus, likely respiratory source; empiric zosyn E: to monitor hypo-/hyper-glycemia P: no acute issues Quality Stroke Does the patient have a stroke diagnosis?: No VTE Prior VTE?: No VTE Risk Level:: Medical - moderate - high VTE Device Contraindication: Treatment Not Indicated VTE Drug Contraindication: N/A - Med Ordered
[2024-02-12] MEDS: dexmedeTOMIDidine HCL/NS 400 MCG/100 ML INFUS..BTL 29.95 MCG IVCONT (08:58)
[2024-02-12] MEDS: Etomidate 20 MG/10 ML VIAL IVPUSH (09:15)
[2024-02-12] MEDS: Rocuronium Bromide 50 MG/5 ML VIAL IVPUSH (09:16)
[2024-02-12] MEDS: propofoL 1,000 MG/100 ML VIAL 20.61 MG IVCONT (09:20)
--- NOTE | 2024-02-12 09:21 | P.PCNCC_ITS ---
Procedures Date of Service Date of Service: 02/12/24 Intubation Consent for Procedure: Emergent-no informed consent obtained Time out performed: Yes Sedative: etomidate Mg given: 20 Paralytic: rocuronium Mg given: 50 Laryngoscope: Norbert ET tube size: 8 ET tube uncuffed: No Tube secured depth (cm): 22 Tube secured location: lips Tube placement confirmation: visualized tube passing through cords and equal br eath sounds bilaterally Patient tolerated procedure: well and no complications Intubation complications: none and other (awaiting chest x-ray)
[2024-02-12] MEDS: fentaNYL citrate/PF 100 MCG/2 ML VIAL 50 MCG IVPUSH (09:45)
[2024-02-12] MEDS: Famotidine/PF 20 MG/2 ML VIAL IVPUSH (09:47)
--- NOTE | 2024-02-12 10:26 | MHC.CLN ---
PT IS INTUBATED AND SEDATED CURRENTLY NPO IF TF NEEDED; RECOMMEND PROMOTE AT MAX GOAL RATE 45ML/HR TO PROVIDE 1080KCALS (1987KCALS WITH SEDATION; 22KCALS/KG), 67.5G PROTEIN (.75G/KG), 906ML FREE WATER FROM FORMULA MONITOR TOLERANCE AND LYTES SEE ALSO FULL CLINICAL NUTRITION ASSESSMENT
[2024-02-12 11:13] LABS: Glucose, Whole Blood 118 mg/dL (60-115)
[2024-02-12] MEDS: propofoL 1,000 MG/100 ML VIAL 34.35 MG IVCONT ×4 (11:50→22:01)
[2024-02-12 12:34] LABS: Anion Gap 15 (12-20); Blood Urea Nitrogen 33 mg/dL (9-16); Calcium 9.1 mg/dL (8.4-10.2); Carbon Dioxide 24 mmol/L (22-29); Chloride 110 mmol/L (96-108); Creatinine Clr Calc Pharmacy 54.1; Estimated Glomerular Filt Rate 53; Glucose Random 116 mg/dL (60-115); Magnesium 2.1 mg/dL (1.6-2.6); Phosphorus 2.4 mg/dL (2.7-4.5); Potassium 3.1 mmol/L (3.3-5.1); Sodium 146 mmol/L (135-145)
--- NOTE | 2024-02-12 15:49 | ECG_ITS ---
Test Reason : Bradycardia Blood Pressure : / mmHG Vent. Rate : 046 BPM Atrial Rate : 046 BPM P-R Int : 200 ms QRS Dur : 096 ms QT Int : 574 ms P-R-T Axes : 009 -40 -34 degrees QTc Int : 502 ms Sinus bradycardia with Premature atrial complexes Left axis deviation Minimal voltage criteria for LVH, may be normal variant ( R in aVL ) Septal infarct (cited on or before 04-AUG-2021) Inferior infarct (cited on or before 04-AUG-2021) Abnormal ECG When compared with ECG of 12-FEB-2024 08:59, Premature atrial complexes are now Present Referred By: Grisel Marte Electronically Signed By:WON PURCELL MD
[2024-02-12 17:07] LABS: Glucose, Whole Blood 96 mg/dL (60-115)
--- NOTE | 2024-02-12 17:39 | PC.NURSE ---
Approximately at 0900 pt became hypoxic, O2 sat 81% on 15L oxymask. Pt transition to a non-rebreather with no improvement.? MD and RT at bedside. Intubated?@ 0920.pt medicated prior to incubation (see MAR). Propofol gtt started per?SEP.
[2024-02-12] MEDS: propofoL 1,000 MG/100 ML VIAL 27.48 MG IVCONT (20:12)
[2024-02-13] VITALS (41 sets, daily range): BP systolic 121–201; BP diastolic 38–71; PULSE 50–71; RESP 18–24; TEMP 34.4–37.9; O2SAT 89–97; BMI 37.3
[2024-02-13 00:39] LABS: Glucose, Whole Blood 100 mg/dL (60-115)
[2024-02-13] MEDS: propofoL 1,000 MG/100 ML VIAL 27.48 MG IVCONT (00:54)
[2024-02-13] MEDS: Heparin Sodium,Porcine 5,000 UNIT/ML VIAL 5000 UNIT SUBCUT ×2 (00:56→07:42)
[2024-02-13 01:26] LABS: Alanine Aminotransferase 30 U/L (0-40); Albumin Level 3.5 g/dL (3.5-5.0); Alkaline Phosphatase 60 U/L (39-117); Anion Gap 15 (12-20); Aspartate Amino Transferase 54 U/L (5-37); Bilirubin Total 1.5 mg/dL (0.0-1.0); Blood Urea Nitrogen 36 mg/dL (9-16); Calcium 9.5 mg/dL (8.4-10.2); Carbon Dioxide 26 mmol/L (22-29); Chloride 109 mmol/L (96-108); Creatinine Clr Calc Pharmacy 46.8; Estimated Glomerular Filt Rate 45; Glucose Random 101 mg/dL (60-115); Magnesium 2.3 mg/dL (1.6-2.6); Phosphorus 2.9 mg/dL (2.7-4.5); Sodium 147 mmol/L (135-145); Total Protein 7.1 g/dL (6.5-8.0)
[2024-02-13 01:27] LABS: Troponin-I High Sensitivity 111.8 ng/L (<3.5-35.0)
[2024-02-13 01:37] LABS: TSH reflex Free T4 2.28 uIU/mL (0.32-4.0)
[2024-02-13] MEDS: Potassium Chloride Packet 20 MEQ PACKET 40 MEQ PO (02:02)
[2024-02-13] MEDS: propofoL 1,000 MG/100 ML VIAL 34.35 MG IVCONT ×3 (03:46→09:06)
--- NOTE | 2024-02-13 03:54 | PC.NURSE ---
CARE ASSUMED 7PM..REMAINS INTUBATED/VCV VENT SUPPORT..SEDATED WITH PROPOFOL 50 MCG/KG/MIN..RESTLESS/MANDUJANO WHEN PROPOFOL WEANED TO 40 MCG/KG/MIN....MONITOR S.BRADYCARDIA HR 50'S-60'S...RARE PVC....23:54 MONITOR 19 BEAT V.TACH NOTED..ICU PA PRESENT....LABS DRAWN PER PA...K=3.0 ...KCL 40MEQ VIA OG-TUBE GIVEN...NO FURTHER DYSRHYTHMIAS NOTED....POWER DEEP YELLOW URINE...INCONTINANT LARGE LIQUIED BROWN STOOL...F/U [id number]=213.8
[2024-02-13] MEDS: Piperacillin Sodium/Tazobactam 3.375 GM in 0.9 % Sodium Chloride 50 ML IV ×4 (04:39→23:26)
--- NOTE | 2024-02-13 06:00 | ECG_ITS ---
Test Reason : Bradyarrhythmia Blood Pressure : / mmHG Vent. Rate : 047 BPM Atrial Rate : 047 BPM P-R Int : 182 ms QRS Dur : 114 ms QT Int : 488 ms P-R-T Axes : 007 -39 -06 degrees QTc Int : 431 ms Sinus bradycardia with Premature atrial complexes Left axis deviation Moderate voltage criteria for LVH, may be normal variant ( R in aVL , Wilman product ) Cannot rule out Anterior infarct (cited on or before 04-AUG-2021) Abnormal ECG When compared with ECG of 12-FEB-2024 16:12, ST no longer depressed in Inferior leads Nonspecific T wave abnormality has replaced inverted T waves in Inferior leads Nonspecific T wave abnormality, improved in Lateral leads QT has shortened Referred By: Grisel Marte Electronically Signed By:
[2024-02-13 06:11] LABS: MANUAL DIFF FLAG NO
[2024-02-13] MEDS: Levothyroxine Sodium 100 MCG/5 ML VIAL 50 MCG IVPUSH (06:11)
[2024-02-13 06:15] LABS: Basophils Percent Auto 0.4 % (0-2); Eosinophils Absolute Auto 0.2 X10*3/uL (0.0-0.4); Eosinophils Percent Auto 2.1 % (0-4); Hematocrit 29.8 % (42.0-52.0); Hemoglobin 9.7 g/dl (14.0-18.0); Imm Gran Abs Auto 0.18 X10*3/uL (0.00-0.03); Imm Gran Pct Auto 2.2 % (0.0-0.4); Mean Corpuscular HGB Conc 32.6 g/dl (31.0-36.0); Mean Corpuscular Hemoglobin 28.8 pg (27.0-33.0); Mean Corpuscular Volume 88.4 fL (80.0-98.0); Mean Platelet Volume 10.4 fL (9.4-12.4); Monocytes Absolute Auto 0.8 X10*3/uL (0.1-1.2); Monocytes Percent Auto 9.7 % (2-11); Neutrophils Percent Auto 73.6 % (45-73); Platelet Count 162 X10*3/uL (160-400); Red Blood Count 3.37 X10*6/uL (4.60-5.80); Red Cell Distribution Width 15.7 % (11.0-16.0); White Blood Count 8.1 X10*3/uL (4.8-10.8)
[2024-02-13 06:32] LABS: Anion Gap 17 (12-20); Blood Urea Nitrogen 35 mg/dL (9-16); Calcium 9.1 mg/dL (8.4-10.2); Carbon Dioxide 23 mmol/L (22-29); Chloride 110 mmol/L (96-108); Creatinine Clr Calc Pharmacy 52.1; Estimated Glomerular Filt Rate 51; Glucose Random 99 mg/dL (60-115); Magnesium 2.3 mg/dL (1.6-2.6); Phosphorus 2.8 mg/dL (2.7-4.5); Potassium 3.2 mmol/L (3.3-5.1); Sodium 147 mmol/L (135-145)
[2024-02-13 06:40] LABS: Troponin-I High Sensitivity 86.7 ng/L (<3.5-35.0)
[2024-02-13 07:29] LABS: VBG Base Excess 1.5 mmol/L; VBG HCO3 25 mmol/L (22-26); VBG pCO2 38 mmHg; VBG pH 7.43 (7.32-7.43); VBG pO2 40 mmHg
[2024-02-13 07:31] LABS: Glucose, Whole Blood 100 mg/dL (60-115)
[2024-02-13] MEDS: Potassium Chloride/H20 10 MEQ/100 ML PIGGYBACK 100 MEQ IV ×4 (07:42→10:53)
[2024-02-13] MEDS: Famotidine/PF 20 MG/2 ML VIAL IVPUSH (07:42)
[2024-02-13] MEDS: Furosemide 20 MG/2 ML VIAL 10 MG IVPUSH ×2 (07:42→18:01)
[2024-02-13] MEDS: fentaNYL citrate/PF 100 MCG/2 ML VIAL 50 MCG IVPUSH ×2 (08:18→11:03)
--- NOTE | 2024-02-13 08:30 | P.PNCC_ITS ---
Subjective Subjective Date of Service: 02/13/24 Interval History: intermittent hypertension, improved w/ analgesia Critical Care Time (minutes): 60 Physical Exam 2 Vital Signs: Vital Signs: Last Vital Signs Temp 97.7 F 02/13/24 08:00 Pulse 62 02/13/24 08:00 Resp 20 02/13/24 08:00 BP 170/67 H 02/13/24 08:00 Pulse Ox 89 L 02/13/24 08:00 O2 Del Method Mechanical Ventil ation 02/13/24 08:00 O2 Flow Rate 12 02/12/24 08:00 FiO2 50 02/13/24 08:00 BMI result Body Mass Index 37.3 Const: Other: intubated, sedated General: no acute distress and well developed HEENT: Head: Yes normal to inspection, Yes normocephalic and Yes atraumatic Eyes: General: appearance normal, both eyes and all related structures Neck: Neck: Yes normal visual inspection, Yes full ROM, Yes trachea midline and Yes supple Chest: Chest palpation & inspection: normal inspection of the chest Resp: Other: no appreciable rales, rhonchi, wheezing Effort & Inspection: normal respiratory effort Cardio: Rate: regular rate Rhythm: abnormal rhythm GI: Inspection: Yes normal to inspection, No Abdominal wall edema and No distended Palpation (GI): Soft to palpation, not firm, nontender, no guarding and not rigid Skin: General skin exam: no rashes or lesions noted Neuro: Other: unable to assess Extrem: General: Yes normal to inspection, Yes full ROM, Yes capillary refill normal and Yes no clubbing, cyanosis or edema Psych: Other: unable to assess Objective Data Labs 02/13/24 05:46 02/13/24 05:47 Labs: Laboratory Results - last 24 hr 02/12/24 02/12/24 02/12/24 11:09 12:15 17:03 WBC RBC Hgb Hct MCV MCH MCHC RDW Plt Count MPV Immature Gran % (Auto) Neut % (Auto) Lymph % (Auto) [place] % (Auto) Eos % (Auto) Baso % (Auto) Lymph # (Auto) [place] # (Auto) Eos # (Auto) Baso # (Auto) Abs Immat Gran (auto) Absolute Neuts (auto) Absolute Nucleated RBC Nucleated RBC % (auto) Hold Blue Top VBG pH VBG pCO2 VBG pO2 VBG HCO3 VBG O2 Saturation VBG Base Excess Sodium 146 H Potassium 3.1 L D Chloride 110 H Carbon Dioxide 24 Anion Gap 15 BUN 33 H Creatinine 1.29 Estim Creat Clear Calc 54.1 Estimated GFR 53 POC Glucose 118 H 96 Random Glucose 116 H Calcium 9.1 Phosphorus 2.4 L Magnesium 2.1 Total Bilirubin AST ALT Alkaline Phosphatase Troponin I High Sens Total Protein Albumin TSH 02/13/24 02/13/24 02/13/24 00:35 00:53 05:46 WBC 8.1 RBC 3.37 L Hgb 9.7 L Hct 29.8 L MCV 88.4 MCH 28.8 MCHC 32.6 RDW 15.7 Plt Count 162 MPV 10.4 Immature Gran % (Auto) 2.2 H Neut % (Auto) 73.6 H Lymph % (Auto) 12.0 L [place] % (Auto) 9.7 Eos % (Auto) 2.1 Baso % (Auto) 0.4 Lymph # (Auto) 1.0 L [place] # (Auto) 0.8 Eos # (Auto) 0.2 Baso # (Auto) 0.0 Abs Immat Gran (auto) 0.18 H Absolute Neuts (auto) 6.0 Absolute Nucleated RBC 0.000 Nucleated RBC % (auto) 0.0 Hold Blue Top SEE NOTE VBG pH VBG pCO2 VBG pO2 VBG HCO3 VBG O2 Saturation VBG Base Excess Sodium 147 H Potassium 3.0 L Chloride 109 H Carbon Dioxide 26 Anion Gap 15 BUN 36 H Creatinine 1.49 H Estim Creat Clear Calc 46.8 Estimated GFR 45 POC Glucose 100 Random Glucose 101 Calcium 9.5 Phosphorus 2.9 Magnesium 2.3 Total Bilirubin 1.5 H AST 54 H ALT 30 Alkaline Phosphatase 60 Troponin I High Sens 111.8 H* D 86.7 H Total Protein 7.1 Albumin 3.5 TSH 2.28 02/13/24 02/13/24 02/13/24 05:47 07:19 07:27 WBC RBC Hgb Hct MCV MCH MCHC RDW Plt Count MPV Immature Gran % (Auto) Neut % (Auto) Lymph % (Auto) [place] % (Auto) Eos % (Auto) Baso % (Auto) Lymph # (Auto) [place] # (Auto) Eos # (Auto) Baso # (Auto) Abs Immat Gran (auto) Absolute Neuts (auto) Absolute Nucleated RBC Nucleated RBC % (auto) Hold Blue Top VBG pH 7.43 VBG pCO2 38 VBG pO2 40 VBG HCO3 25 VBG O2 Saturation 62.0 VBG Base Excess 1.5 Sodium 147 H Potassium 3.2 L Chloride 110 H Carbon Dioxide 23 Anion Gap 17 BUN 35 H Creatinine 1.34 Estim Creat Clear Calc 52.1 Estimated GFR 51 POC Glucose 100 Random Glucose 99 Calcium 9.1 Phosphorus 2.8 Magnesium 2.3 Total Bilirubin AST ALT Alkaline Phosphatase Troponin I High Sens Total Protein Albumin TSH Microbiology Microbiology Results: Microbiology 02/09/24 13:28 Blood - Venous Blood Culture - Final Haemophilus influenzae 02/09/24 13:28 Blood - Venous Blood Culture - Preliminary No growth after 48 hours. 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%, atrial fibrillation, chronic renal insufficiency, presenting initially on 02/08 w/ acute hypoxic respiratory failure thought to be d/t aspiration, intubated, extubated N: intubated, sedated w/ propofol gtt; c/f delirium prior to re-intubation CV: intermittent sinus bradycardia w/o hemodynamic compromise; to monitor; CAD, c/b HF, atrial fibrillation R: acute hypoxic respiratory failure, likely d/t aspiration, intubated, extubated, re-intubated, c/f recurrent aspiration GI: tube feeds : no acute issues H: no acute issues ID: BCx w/ haemophilus, likely respiratory source; empiric zosyn E: to monitor hypo-/hyper-glycemia P: no acute issues Quality Stroke Does the patient have a stroke diagnosis?: No VTE Prior VTE?: No VTE Risk Level:: Medical - moderate - high VTE Device Contraindication: Treatment Not Indicated VTE Drug Contraindication: N/A - Med Ordered
--- NOTE | 2024-02-13 08:44 | MHC.CM.PN ---
Pt required reintubation on 02/11 d/t increased WOB and signs of distress. Plans will be focused on eventual vent weaning once respiratory status shows improvement. Pt from home w/spouse: d/c plan to be revisited for finalization.
[2024-02-13 09:11] LABS: Venous Blood Gas Refer to POC result
--- NOTE | 2024-02-13 09:46 | MHC.CLN ---
F/U PT REMAINS INTUBATED AND SEDATED DISCUSSED AT ROUNDS WITH MD BURGOS TO START; RECOMMEND PROMOTE AT MAX GOAL RATE 45ML/HR WITH 240ML FREE WATER FLUSHES Q 6 HRS TO PROVIDE 1080KCALS (1987KCALS WITH SEDATION; 22KCALS/KG), 67.5G PROTEIN (.75G/KG), 1866ML TOTAL FREE WATER FROM FORMULA AND FLSUHES (25ML/KG BASED ON IBW) MONITOR TOLERANCE AND LYTES
[2024-02-13] MEDS: fentaNYL citrate/NS 1,000 MCG/100 ML PLAST..BAG 2.5 MCG IVCONT (11:23)
[2024-02-13] MEDS: propofoL 1,000 MG/100 ML VIAL 20.61 MG IVCONT ×3 (12:24→21:44)
[2024-02-13] MEDS: amLODIPine Besylate 5 MG TABLET PO (13:43)
[2024-02-13] MEDS: Chlorhexidine Gluc Oral Rinse 15 ML MOUTHWASH BUCCAL ×2 (15:10→20:57)
[2024-02-13] MEDS: fentaNYL citrate/NS 1,000 MCG/100 ML PLAST..BAG 20 MCG IVCONT ×2 (17:27→21:51)
[2024-02-13] MEDS: Apixaban 2.5 MG TABLET PO (20:57)
--- NOTE | 2024-02-13 22:23 | HO.SKINPHOTO ---
Location: Left upper lip Category: MDPI
[2024-02-13] MEDS: 0.9 % Sodium Chloride Flush 3 ML SYRINGE IVFLUSH (23:28)
[2024-02-14] VITALS (32 sets, daily range): BP systolic 96–176; BP diastolic 35–76; PULSE 57–76; RESP 13–23; TEMP 34.9–38.5; O2SAT 72–97; BMI 36.6
[2024-02-14] MEDS: propofoL 1,000 MG/100 ML VIAL 20.61 MG IVCONT ×4 (01:31→14:02)
[2024-02-14] MEDS: fentaNYL citrate/NS 1,000 MCG/100 ML PLAST..BAG 17.5 MCG IVCONT (02:56)
[2024-02-14] MEDS: Piperacillin Sodium/Tazobactam 3.375 GM in 0.9 % Sodium Chloride 50 ML IV ×4 (05:19→23:22)
[2024-02-14 05:23] LABS: VBG Base Excess 2.4 mmol/L; VBG HCO3 24 mmol/L (22-26); VBG pCO2 29 mmHg; VBG pH 7.53 (7.32-7.43); VBG pO2 41 mmHg
[2024-02-14] MEDS: Levothyroxine Sodium 100 MCG/5 ML VIAL 50 MCG IVPUSH (05:24)
[2024-02-14 05:33] LABS: Venous Blood Gas Refer to POC result
[2024-02-14 05:54] LABS: MANUAL DIFF FLAG NO
[2024-02-14 05:56] LABS: Basophils Percent Auto 0.5 % (0-2); Eosinophils Absolute Auto 0.3 X10*3/uL (0.0-0.4); Eosinophils Percent Auto 3.7 % (0-4); Hematocrit 28.4 % (42.0-52.0); Hemoglobin 9.5 g/dl (14.0-18.0); Imm Gran Abs Auto 0.39 X10*3/uL (0.00-0.03); Lymphocytes Absolute Auto 1.3 X10*3/uL (1.2-4.9); Mean Corpuscular HGB Conc 33.5 g/dl (31.0-36.0); Mean Corpuscular Hemoglobin 29.7 pg (27.0-33.0); Mean Corpuscular Volume 88.8 fL (80.0-98.0); Mean Platelet Volume 10.5 fL (9.4-12.4); Monocytes Absolute Auto 0.9 X10*3/uL (0.1-1.2); Monocytes Percent Auto 12.1 % (2-11); NRBC Pct Auto 0.5 /100WBC (0.0-0.2); Neutrophils Absolute Auto 4.8 x10*3/uL (2.0-8.3); Neutrophils Percent Auto 61.7 % (45-73); Platelet Count 175 X10*3/uL (160-400); Red Cell Distribution Width 16.1 % (11.0-16.0); White Blood Count 7.8 X10*3/uL (4.8-10.8)
[2024-02-14 06:11] LABS: Anion Gap 15 (12-20); Blood Urea Nitrogen 32 mg/dL (9-16); Calcium 8.7 mg/dL (8.4-10.2); Carbon Dioxide 22 mmol/L (22-29); Chloride 112 mmol/L (96-108); Creatinine Clr Calc Pharmacy 48.5; Estimated Glomerular Filt Rate 47; Glucose Random 115 mg/dL (60-115); Magnesium 2.2 mg/dL (1.6-2.6); Phosphorus 2.9 mg/dL (2.7-4.5); Potassium 3.4 mmol/L (3.3-5.1); Sodium 146 mmol/L (135-145)
--- NOTE | 2024-02-14 07:48 | ECG_ITS ---
Test Reason : resp failure Blood Pressure : / mmHG Vent. Rate : 068 BPM Atrial Rate : 068 BPM P-R Int : 188 ms QRS Dur : 096 ms QT Int : 478 ms P-R-T Axes : 021 -41 -28 degrees QTc Int : 508 ms Sinus rhythm with Premature atrial complexes Left axis deviation Minimal voltage criteria for LVH, may be normal variant ( R in aVL ) Septal infarct (cited on or before 04-AUG-2021) Inferior infarct (cited on or before 04-AUG-2021) Prolonged QT Abnormal ECG When compared with ECG of 12-FEB-2024 16:12, Vent. rate has increased BY 22 BPM Referred By: Grisel Marte Electronically Signed By:WON PURECLL MD
--- NOTE | 2024-02-14 07:48 | PM.CCPN ---
Subjective Subjective Date of Service: 02/14/24 Interval History: no significant overnight events Critical Care Time (minutes): 60 Physical Exam Vital Signs: Vital Signs: Last Vital Signs Temp 100.4 F 02/14/24 06:59 Pulse 64 02/14/24 06:59 Resp 18 02/14/24 06:59 BP 144/47 H 02/14/24 06:59 Pulse Ox 88 L 02/14/24 06:59 O2 Del Method Mechanical Ventil ation 02/14/24 06:59 O2 Flow Rate 12 02/12/24 08:00 FiO2 50 02/14/24 06:59 BMI result Body Mass Index 36.6 Const: Other: intubated, sedated; appreciable intermittent spontaneous movements HEENT: Head: Yes normal to inspection, Yes normocephalic and Yes atraumatic Eyes: General: appearance normal, both eyes and all related structures Neck: Neck: Yes normal visual inspection, Yes full ROM, Yes trachea midline and Yes supple Chest: Chest palpation & inspection: normal inspection of the chest Resp: Other: no appreciable rales, rhonchi, wheezing Effort & Inspection: normal respiratory effort Cardio: Rate: regular rate Rhythm: abnormal rhythm GI: Inspection: Yes normal to inspection, No Abdominal wall edema and No distended Palpation (GI): Soft to palpation, not firm, nontender, no guarding and not rigid : Male General Exam: Yes normal external exam Skin: General skin exam: no rashes or lesions noted Neuro: General: tone normal and moves all extremities Extrem: Other: 1+ pitting edema to bilateral lower extremities General: Yes normal to inspection, Yes full ROM and Yes capillary refill normal Psych: Other: unable to assess Objective Data Labs 02/14/24 05:16 02/14/24 05:16 Labs: Laboratory Results - last 24 hr 02/14/24 02/14/24 05:13 05:16 WBC 7.8 RBC 3.20 L Hgb 9.5 L Hct 28.4 L MCV 88.8 MCH 29.7 MCHC 33.5 RDW 16.1 H Plt Count 175 MPV 10.5 Immature Gran % (Auto) 5.0 H Neut % (Auto) 61.7 Lymph % (Auto) 17.0 L [place] % (Auto) 12.1 H Eos % (Auto) 3.7 Baso % (Auto) 0.5 Lymph # (Auto) 1.3 [place] # (Auto) 0.9 Eos # (Auto) 0.3 Baso # (Auto) 0.0 Abs Immat Gran (auto) 0.39 H Absolute Neuts (auto) 4.8 Absolute Nucleated RBC 0.040 H Nucleated RBC % (auto) 0.5 H VBG pH 7.53 H VBG pCO2 29 VBG pO2 41 VBG HCO3 24 VBG O2 Saturation 70.0 VBG Base Excess 2.4 Sodium 146 H Potassium 3.4 Chloride 112 H Carbon Dioxide 22 Anion Gap 15 BUN 32 H Creatinine 1.44 H Estim Creat Clear Calc 48.5 Estimated GFR 47 Random Glucose 115 Calcium 8.7 Phosphorus 2.9 Magnesium 2.2 Microbiology Microbiology Results: Microbiology 02/12/24 14:34 Blood - Venous Blood Culture - Preliminary No growth after 24 hours. 02/12/24 14:34 Blood - Venous Blood Culture - Preliminary No growth after 24 hours. 02/09/24 13:28 Blood - Venous Blood Culture - Final Haemophilus influenzae 02/09/24 13:28 Blood - Venous Blood Culture - Preliminary No growth after 48 hours. Progress Note: A&P Assessment and plan (1) Acute respiratory failure with hypoxia: Status: Acute (2) Aspiration pneumonia: Status: Acute (3) Coronary artery disease: Status: Acute (4) Atrial fibrillation: Status: Acute Plan Patient is a 83 Y M with coronary artery disease, c/b heart failure w/ reduced EF 45%, atrial fibrillation, chronic renal insufficiency, presenting initially on 02/08 w/ acute hypoxic respiratory failure thought to be d/t aspiration, intubated, extubated, re-intubated N: intubated, sedated w/ propofol gtt, fentanyl gtt; c/f delirium prior to re-intubation CV: intermittent sinus bradycardia w/o hemodynamic compromise; to monitor; CAD, c/b HF, atrial fibrillation R: acute hypoxic respiratory failure, likely d/t aspiration, intubated, extubated, re-intubated 02/11, c/f recurrent aspiration GI: tube feeds : no acute issues H: no acute issues ID: BCx w/ haemophilus, likely respiratory source; empiric zosyn E: to monitor hypo-/hyper-glycemia P: no acute issues Quality Stroke Does the patient have a stroke diagnosis?: No VTE Prior VTE?: No VTE Risk Level:: Medical - moderate - high VTE Device Contraindication: Treatment Not Indicated VTE Drug Contraindication: N/A - Med Ordered
[2024-02-14] MEDS: Potassium Chloride Packet 20 MEQ PACKET 40 MEQ PO (08:43)
[2024-02-14] MEDS: Magnesium Sulfate/D5W 1 GM/100 ML PIGGYBACK IV (08:58)
[2024-02-14] MEDS: fentaNYL citrate/NS 1,000 MCG/100 ML PLAST..BAG 15 MCG IVCONT ×3 (09:26→21:47)
[2024-02-14] MEDS: Famotidine/PF 20 MG/2 ML VIAL IVPUSH (09:37)
[2024-02-14] MEDS: Chlorhexidine Gluc Oral Rinse 15 ML MOUTHWASH BUCCAL ×3 (09:37→21:23)
[2024-02-14] MEDS: amLODIPine Besylate 5 MG TABLET PO (09:38)
[2024-02-14] MEDS: Apixaban 2.5 MG TABLET PO ×2 (09:38→21:23)
[2024-02-14] MEDS: Furosemide 20 MG/2 ML VIAL IVPUSH ×2 (09:38→18:43)
[2024-02-14] MEDS: 0.9 % Sodium Chloride Flush 3 ML SYRINGE IVFLUSH ×2 (09:45→15:04)
--- NOTE | 2024-02-14 11:56 | MHC.CLN ---
Addendum entered by Shanta Hill, AYAD 02/14/24 14:05: DISCUSSED WITH NSG PROPOFOL RATE DECREASED RECOMMEND INCREASING TF PROMOTE AT MAX GOAL RATE 60ML/HR WITH 300ML FREE WATER FLUSHES Q 6 HRS TO PROVIDE 1984KCALS (22KCALS PER KG WITH SEDATION BASED ON CMW), 90G PROTEIN (1.0G/KG), 2408ML TOTAL WATER FROM FORMULA AND FLUSHES (33ML/KG) MONITOR TOLERANCE AND LYTES Original Note: F/U PT REMAINS INTUBATED AND SEDATED CONTINUE PROMOTE AT MAX GOAL RATE 45ML/HR TO PROVIDE 1080KCALS (1987KCALS WITH SEDATION; 22KCALS/KG), 67.5G PROTEIN (.75G/KG), 906ML TOTAL FREE WATER FROM FORMULA RECOMMEND INCREASING FREE WATER FLUSHES 300ML Q 6 HRS MONITOR TOLERANCE AND LYTES
--- NOTE | 2024-02-14 14:46 | P.CDIM_ITS ---
PROVIDER RESPONSE TEXT: To clarify, the appropriate diagnosis supported by the clinical indicators: Hypokalemia QUERY TEXT: PHYSICIAN'S DOCUMENTATION REQUEST Date of Query: 02/14/2024 12:58 PM EDT Patient Name: Ramon Atkinson Admit Date: 02/09/2024 Dear Grisel Marte MD, A review of the medical record indicates additional documentation may be needed. Please review below and update the documentation accordingly. Clinical Indicators: Potassium level on 02/12/24: 3.1 Potassium level on 02/13/24: 3.0 Klor-Con 40 meq po once 02/14/24 Potassium level on 02/14/24: 3.4 Based on the above, could you clarify the appropriate diagnosis, if significant, that supports the ab ove abnormalities and additional evaluation, monitoring, and/or treatment rendered: Hypokalemia Labs indicate a diagnosis of (please specify) Other (explain) Clinically unable to determine (explain) Thank you, Chanell Damon RN Use of terms such as suspected, likely, concern for, or probable (associated with a specific diagnosi s that is being evaluated, monitored, or treated as if it exists) are acceptable and can be coded in the inpatient se tting, when documented at the time of discharge. Please use your independent medical judgment in providing your response. THIS QUERY IS PART OF THE PERMANENT MEDICAL RECORD
--- NOTE | 2024-02-14 15:09 | MHC.CM.PN ---
PT REMAINS INTUBATED AND SEDATED IN ICU. PER MD ROUNDS, MD WILL BE MEETING WITH DAUGHTER 02/14 TO DISCUSS PLAN. CM WILL CONTINUE TO FOLLOW
--- NOTE | 2024-02-14 18:57 | P.PICC_ITS ---
PICC Line Insertion NPICC Diagnosis: AMS/aspiration Indication: mult iv infusions Pertinent Labs: reviewed Technique: Following informed consent including risks, benefits and alternatives and using sterile technique including cap and mask, sterile gown, glove and drape, the right arm was prepped and draped in the usual sterile fashion of full barrier technique with G. Following completion of [place] Protocol the skin and soft tissues were anesthetized with 1% Lidocaine plain. Using ultrasound guidance, right cephalic vein access was obtained. Over an 0.018 wire through peel-away sheath, a 5FR triple lumen PASV PICC line was positioned. Catheter length is 39cm internal length, 0cm external length, for a total trimmed length of 39cm. The procedure was performed in ICU-262. Unable to Tip verification by Edgar Brenner with Sherlock 3CG d/t Afib. Ultrasound was used to document vein patency and for needle entry. Vascular Ammonia Refrigeration Technician has not released the line for use, awaiting radiologist to read and release line for use. PICC is currently dressed with a StatLock, Tegaderm, and CHG disc. Verification has been performed for blood return and line patency. Arm Circumference: 40cm Equipment: [employer]ars PowerPicc Solo HF catheter with Sherlock 3CG Catheter Type: 5FR triple lumen PASV Lot #: [id number]
[2024-02-14] MEDS: propofoL 1,000 MG/100 ML VIAL 13.74 MG IVCONT (19:21)
[2024-02-15] VITALS (35 sets, daily range): BP systolic 104–195; BP diastolic 40–81; PULSE 58–99; RESP 16–20; TEMP 34.9–38.5; O2SAT 91–100; BMI 37.4
[2024-02-15] MEDS: propofoL 1,000 MG/100 ML VIAL 20.61 MG IVCONT ×4 (00:08→20:54)
[2024-02-15 04:46] LABS: VBG Base Excess 2.8 mmol/L; VBG HCO3 24 mmol/L (22-26); VBG pCO2 26 mmHg; VBG pH 7.56 (7.32-7.43); VBG pO2 53 mmHg
[2024-02-15 04:46] LABS: Venous Blood Gas Refer to POC result
[2024-02-15 04:51] LABS: Hematocrit 27.3 % (42.0-52.0); Hemoglobin 8.9 g/dl (14.0-18.0); Mean Corpuscular HGB Conc 32.6 g/dl (31.0-36.0); Mean Corpuscular Hemoglobin 28.9 pg (27.0-33.0); Mean Corpuscular Volume 88.6 fL (80.0-98.0); Mean Platelet Volume 10.3 fL (9.4-12.4); NRBC Pct Auto 0.9 /100WBC (0.0-0.2); PLT CLUMP 1; Red Blood Count 3.08 X10*6/uL (4.60-5.80); Red Cell Distribution Width 16.5 % (11.0-16.0); White Blood Count 6.7 X10*3/uL (4.8-10.8)
[2024-02-15 04:56] LABS: Anion Gap 16 (12-20); Blood Urea Nitrogen 32 mg/dL (9-16); Calcium 8.9 mg/dL (8.4-10.2); Carbon Dioxide 22 mmol/L (22-29); Chloride 111 mmol/L (96-108); Estimated Glomerular Filt Rate 42; Glucose Random 126 mg/dL (60-115); Magnesium 2.2 mg/dL (1.6-2.6); Phosphorus 3.2 mg/dL (2.7-4.5); Potassium 3.4 mmol/L (3.3-5.1); Sodium 146 mmol/L (135-145)
[2024-02-15 05:01] LABS: Platelet Count 208 X10*3/uL (160-400)
[2024-02-15 05:04] LABS: Band Neutrophils Percent 2 % (3-5); Basophils Abs Manual 0.1 X10*3/uL (0.0-0.2); Basophils Percent Manual 1 % (0-2); Eosinophils Absolute Manual 0.3 X10*3/uL (0.0-0.4); Eosinophils Percent Manual 4 % (0-4); Lymphocytes Absolute Manual 0.9 X10*3/uL (1.2-4.9); Lymphocytes Percent Manual 14 % (20-40); Metamyelocytes Absolute 0.1 X10*3/uL; Metamyelocytes Percent 2 %; Monocytes Absolute Manual 1.4 X10*3/uL (0.1-1.2); Monocytes Percent Manual 21 % (2-11); Myelocytes Absolute 0.1 X10*/uL; Myelocytes Percent 1 %; Neutrophils Absolute Manual 3.8 X10*3/uL (2.0-8.3); Neutrophils Percent Manual 55 % (45-73)
[2024-02-15 05:05] LABS: Acanthocytes 1+ (0-2) /OIF; Burr Cells 1+ (0-2) /OIF; Ovalocytes 1+ (5-14) /OIF; Platelet Estimate NORMAL (NORMAL); Platelet Morphology Comment NORMAL; RBC Morphology NOTED; Toxic Vacuolation PRESENT
[2024-02-15] MEDS: Piperacillin Sodium/Tazobactam 3.375 GM in 0.9 % Sodium Chloride 50 ML IV ×4 (05:10→22:34)
[2024-02-15] MEDS: Levothyroxine Sodium 100 MCG/5 ML VIAL 50 MCG IVPUSH (05:10)
[2024-02-15] MEDS: fentaNYL citrate/NS 1,000 MCG/100 ML PLAST..BAG 10 MCG IVCONT ×2 (05:45→14:47)
--- NOTE | 2024-02-15 07:00 | ECG_ITS ---
Test Reason : bradycardia Blood Pressure : / mmHG Vent. Rate : 066 BPM Atrial Rate : 000 BPM P-R Int : 000 ms QRS Dur : 080 ms QT Int : 510 ms P-R-T Axes : 000 -42 -10 degrees QTc Int : 534 ms Poor data quality Normal sinus rhythm Left axis deviation Minimal voltage criteria for LVH, may be normal variant ( R in aVL ) Anteroseptal infarct (cited on or before 04-AUG-2021) Abnormal ECG When compared with ECG of 14-FEB-2024 08:43, Poor data quality in current ECG precludes serial comparison Referred By: Grisel Marte Electronically Signed By:WON PURCELL MD
[2024-02-15] MEDS: 0.9 % Sodium Chloride Flush 3 ML SYRINGE IVFLUSH ×3 (07:50→20:53)
[2024-02-15] MEDS: Famotidine/PF 20 MG/2 ML VIAL IVPUSH (07:51)
[2024-02-15] MEDS: amLODIPine Besylate 5 MG TABLET PO (07:51)
[2024-02-15] MEDS: Furosemide 20 MG/2 ML VIAL IVPUSH (07:51)
[2024-02-15] MEDS: Apixaban 2.5 MG TABLET PO ×2 (07:51→20:53)
[2024-02-15] MEDS: Chlorhexidine Gluc Oral Rinse 15 ML MOUTHWASH BUCCAL ×3 (07:52→20:53)
--- NOTE | 2024-02-15 07:55 | P.PNCC_ITS ---
Subjective Subjective Date of Service: 02/15/24 Interval History: no significant overnight events; continued agitation/hypertension w/ attempts to wean sedation Critical Care Time (minutes): 60 Physical Exam 2 Vital Signs: Vital Signs: Last Vital Signs Temp 100.4 F 02/15/24 07:00 Pulse 58 02/15/24 07:00 Resp 16 02/15/24 07:00 BP 178/65 H 02/15/24 07:51 Pulse Ox 95 02/15/24 07:00 O2 Del Method Mechanical Ventil ation 02/15/24 07:00 O2 Flow Rate 12 02/12/24 08:00 FiO2 55 02/15/24 07:00 BMI result Body Mass Index 37.4 Const: Other: intubated, sedated HEENT: Head: Yes normal to inspection, Yes normocephalic and Yes atraumatic Eyes: General: appearance normal, both eyes and all related structures Neck: Neck: Yes normal visual inspection, Yes full ROM, Yes trachea midline and Yes supple Chest: Chest palpation & inspection: normal inspection of the chest Resp: Other: no appreciabe rales, rhonchi, wheezing Effort & Inspection: normal respiratory effort Cardio: Rate: regular rate Rhythm: regular rhythm GI: Inspection: Yes normal to inspection, No Abdominal wall edema and No distended Palpation (GI): Soft to palpation, not firm, nontender, no guarding and not rigid : Male General Exam: Yes normal external exam Skin: General skin exam: no rashes or lesions noted Neuro: General: tone normal and moves all extremities Extrem: General: Yes normal to inspection, Yes full ROM, Yes capillary refill normal and Yes no clubbing, cyanosis or edema Psych: Other: unable to assess Objective Data Labs 02/15/24 04:27 02/15/24 04:27 Labs: Laboratory Results - last 24 hr 02/15/24 02/15/24 04:27 04:37 WBC 6.7 RBC 3.08 L Hgb 8.9 L Hct 27.3 L MCV 88.6 MCH 28.9 MCHC 32.6 RDW 16.5 H Plt Count 208 MPV 10.3 Immature Gran % (Auto) Cancelled Neut % (Auto) Cancelled Lymph % (Auto) Cancelled [place] % (Auto) Cancelled Eos % (Auto) Cancelled Baso % (Auto) Cancelled Lymph # (Auto) Cancelled [place] # (Auto) Cancelled Eos # (Auto) Cancelled Baso # (Auto) Cancelled Abs Immat Gran (auto) Cancelled Absolute Neuts (auto) Cancelled Absolute Nucleated RBC 0.060 H Nucleated RBC % (auto) 0.9 H Neutrophils % (Manual) 55 Band Neutrophils % 2 L Lymphocytes % (Manual) 14 L Monocytes % (Manual) 21 H Eosinophils % (Manual) 4 Basophils % (Manual) 1 Metamyelocytes % 2 Myelocytes % 1 Abs Neuts (Manual) 3.8 Lymphocytes # (Manual) 0.9 L Monocytes # (Manual) 1.4 H Eosinophils # (Manual) 0.3 Basophils # (Manual) 0.1 Metamyelocytes # 0.1 Myelocytes # 0.1 Toxic Vacuolation PRESENT Platelet Estimate NORMAL Plt Morphology Comment NORMAL RBC Morphology NOTED Ovalocytes 1+ (5-14) [place] Cells 1+ (0-2) Acanthocytes ([place]) 1+ (0-2) VBG pH 7.56 H VBG pCO2 26 VBG pO2 53 VBG HCO3 24 VBG O2 Saturation 88.0 VBG Base Excess 2.8 Sodium 146 H Potassium 3.4 Chloride 111 H Carbon Dioxide 22 Anion Gap 16 BUN 32 H Creatinine 1.57 H Estim Creat Clear Calc 44.0 Estimated GFR 42 Random Glucose 126 H Calcium 8.9 Phosphorus 3.2 Magnesium 2.2 Microbiology Microbiology Results: Microbiology 02/12/24 14:34 Blood - Venous Blood Culture - Preliminary No growth after 48 hours. 02/12/24 14:34 Blood - Venous Blood Culture - Preliminary No growth after 48 hours. 02/09/24 13:28 Blood - Venous Blood Culture - Final No growth after 5 days. 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%, atrial fibrillation, chronic renal insufficiency, presenting initially on 02/08 w/ acute hypoxic respiratory failure thought to be d/t aspiration, intubated, extubated, re-intubated N: intubated, sedated w/ propofol gtt, fentanyl gtt; c/f delirium prior to re- intubation; persistent agitation w/ attempts to wean sedation; to repeat CT H CV: intermittent sinus bradycardia w/o hemodynamic compromise, and QTc prolongation; to monitor closely; to avoid QTc-prolonging medications; CAD, c/b HF, atrial fibrillation on apixaban R: acute hypoxic respiratory failure, likely d/t aspiration, intubated, extubated, re-intubated 02/11, c/f recurrent aspiration GI: tube feeds : acute renal insufficiency, likely d/t congestion; to monitor renal indices H: no acute issues ID: BCx w/ haemophilus, likely respiratory source; empiric zosyn E: to monitor hypo-/hyper-glycemia P: no acute issues Quality Stroke Does the patient have a stroke diagnosis?: No VTE Prior VTE?: No VTE Risk Level:: Medical - moderate - high VTE Device Contraindication: Treatment Not Indicated VTE Drug Contraindication: N/A - Med Ordered
[2024-02-15] MEDS: fentaNYL citrate/PF 100 MCG/2 ML VIAL 50 MCG IVPUSH (08:23)
[2024-02-15] MEDS: propofoL 1,000 MG/100 ML VIAL 27.48 MG IVCONT ×2 (08:49→12:27)
[2024-02-15 09:01] LABS: MRSA Nasal PCR NEGATIVE (Negative); SA Nasal PCR NEGATIVE (Negative)
--- NOTE | 2024-02-15 11:53 | W.PM.CCHP ---
Procedures Date of Service Date of Service: 02/15/24 Bronchoscopy Consent for Procedure: Elective - informed consent obtained Indication: pulmonary toilet and other (c/f mucus plugging) Procedure: endotracheal tube appears in appropriate position above castillo; immediately appreciable copious, thick, mejia secretions at castillo, and left greater than right main bronchi; the right-sided lung was appreciated to the level of the secondary bronchi; a moderate amount of secretions were removed; the left-sided lung was also appreciated to the level of the secondary bronchi, and copious amounts of secretions were removed; no lesions, bleeding were appreciated throughout Route: endotracheal tube Sedation/Analgesia: fentanyl and other (propofol gtt) Monitor: EKG and pulse oximetry Complications: none
--- NOTE | 2024-02-15 12:07 | PC.RT ---
RT assist MD with bedside bronchoscopy. Pt was preoxygenated with 100% o2. Pt hs #8 ETT chitra [employer] ambu brochoscope was used with a 5mm OD. Pt maintained ventilation throughout with no issue. Pt was sxnd for copious thick mejia secretions and some mucos plugs. Post Bronch cxr showed imp KRANTHI. MD aware. Pt fio2 weaned back to 50% without issue.
[2024-02-15] MEDS: Furosemide 200 MG in 0.9 % Sodium Chloride 80 ML IVCONT (12:10)
--- NOTE | 2024-02-15 12:42 | MHC.CM.PN ---
Pt continues care in ICU: vented after failed extubation attempt. MD to have GOC discussion w/pt's family as he remains a full code with several comorbid conditions. CM to follow for finalization of d/c planning needs.
[2024-02-15 19:20] LABS: Anion Gap 16 (12-20); Blood Urea Nitrogen 31 mg/dL (9-16); Calcium 8.5 mg/dL (8.4-10.2); Carbon Dioxide 24 mmol/L (22-29); Chloride 110 mmol/L (96-108); Creatinine Clr Calc Pharmacy 48.9; Estimated Glomerular Filt Rate 47; Glucose Random 126 mg/dL (60-115); Phosphorus 3.8 mg/dL (2.7-4.5); Potassium 5.1 mmol/L (3.3-5.1); Sodium 145 mmol/L (135-145)
[2024-02-16] VITALS (30 sets, daily range): BP systolic 122–174; BP diastolic 44–73; PULSE 61–93; RESP 15–22; TEMP 35.1–38.4; O2SAT 91–100; BMI 36.3
[2024-02-16] MEDS: fentaNYL citrate/NS 1,000 MCG/100 ML PLAST..BAG 10 MCG IVCONT (00:32)
[2024-02-16] MEDS: propofoL 1,000 MG/100 ML VIAL 20.61 MG IVCONT ×3 (00:32→08:59)
[2024-02-16 04:51] LABS: Hematocrit 31.3 % (42.0-52.0); Hemoglobin 10.3 g/dl (14.0-18.0); Mean Corpuscular HGB Conc 32.9 g/dl (31.0-36.0); Mean Corpuscular Hemoglobin 28.7 pg (27.0-33.0); Mean Corpuscular Volume 87.2 fL (80.0-98.0); Mean Platelet Volume 9.7 fL (9.4-12.4); NRBC Pct Auto 0.5 /100WBC (0.0-0.2); Platelet Count 205 X10*3/uL (160-400); Red Blood Count 3.59 X10*6/uL (4.60-5.80); Red Cell Distribution Width 16.4 % (11.0-16.0); White Blood Count 8.5 X10*3/uL (4.8-10.8)
[2024-02-16] MEDS: Piperacillin Sodium/Tazobactam 3.375 GM in 0.9 % Sodium Chloride 50 ML IV ×4 (04:58→23:07)
[2024-02-16] MEDS: Levothyroxine Sodium 100 MCG/5 ML VIAL 50 MCG IVPUSH (04:59)
[2024-02-16 05:04] LABS: Venous Blood Gas Refer to POC result
[2024-02-16 05:05] LABS: VBG Base Excess 8.6 mmol/L; VBG HCO3 31 mmol/L (22-26); VBG pCO2 38 mmHg; VBG pH 7.52 (7.32-7.43); VBG pO2 51 mmHg
[2024-02-16 05:11] LABS: Anion Gap 14 (12-20); Blood Urea Nitrogen 32 mg/dL (9-16); Calcium 9.2 mg/dL (8.4-10.2); Carbon Dioxide 29 mmol/L (22-29); Chloride 104 mmol/L (96-108); Creatinine Clr Calc Pharmacy 44.2; Estimated Glomerular Filt Rate 44; Glucose Random 116 mg/dL (60-115); Magnesium 1.9 mg/dL (1.6-2.6); Phosphorus 3.5 mg/dL (2.7-4.5); Potassium 3.7 mmol/L (3.3-5.1); Sodium 143 mmol/L (135-145)
[2024-02-16 05:12] LABS: Atypical Lymph Absolute Manual 0.3 x10*3/uL; Atypical Lymphs Percent Manual 3 % (0-6); Band Neutrophils Percent 10 % (3-5); Basophils Abs Manual 0.1 X10*3/uL (0.0-0.2); Basophils Percent Manual 1 % (0-2); Eosinophils Absolute Manual 0.3 X10*3/uL (0.0-0.4); Eosinophils Percent Manual 4 % (0-4); Lymphocytes Percent Manual 12 % (20-40); Metamyelocytes Absolute 0.2 X10*3/uL; Metamyelocytes Percent 2 %; Monocytes Percent Manual 23 % (2-11); Myelocytes Absolute 0.1 X10*/uL; Myelocytes Percent 1 %; Neutrophils Absolute Manual 4.6 X10*3/uL (2.0-8.3); Neutrophils Percent Manual 44 % (45-73); Platelet Estimate NORMAL (NORMAL); Platelet Morphology Comment NORMAL; RBC Morphology NORMAL
--- NOTE | 2024-02-16 07:00 | ECG_ITS ---
Test Reason : qtc check Blood Pressure : / mmHG Vent. Rate : 068 BPM Atrial Rate : 068 BPM P-R Int : 178 ms QRS Dur : 108 ms QT Int : 504 ms P-R-T Axes : 026 -43 112 degrees QTc Int : 535 ms Normal sinus rhythm Left axis deviation Moderate voltage criteria for LVH, may be normal variant ( R in aVL , Wilman product ) Nonspecific T wave abnormality Abnormal ECG When compared with ECG of 15-FEB-2024 07:45, QRS duration has increased Criteria for Anteroseptal infarct are no longer Present Nonspecific T wave abnormality no longer evident in Inferior leads Referred By: Grisel Marte Electronically Signed By:WON PURCELL MD
--- NOTE | 2024-02-16 07:45 | P.PNCC_ITS ---
Subjective Subjective Date of Service: 02/16/24 Interval History: no significant overnight events Critical Care Time (minutes): 60 Physical Exam 2 Vital Signs: Vital Signs: Last Vital Signs Temp 100.4 F 02/16/24 07:00 Pulse 61 02/16/24 07:00 Resp 20 02/16/24 07:00 BP 126/49 L 02/16/24 07:00 Pulse Ox 96 02/16/24 07:00 O2 Del Method Mechanical Ventil ation 02/16/24 07:00 O2 Flow Rate 12 02/12/24 08:00 FiO2 40 02/16/24 07:00 BMI result Body Mass Index 36.3 Const: Other: intubated, sedated; appreciable grimacing, bites on ETT General: no acute distress and well developed HEENT: Head: Yes normal to inspection, Yes normocephalic and Yes atraumatic Eyes: General: appearance normal, both eyes and all related structures Neck: Neck: Yes normal visual inspection, Yes full ROM, Yes trachea midline and Yes supple Chest: Chest palpation & inspection: normal inspection of the chest Resp: Other: some appreciable rhonchi; no appreciable rales, wheezing Effort & Inspection: normal respiratory effort Cardio: Rate: regular rate Rhythm: abnormal rhythm GI: Inspection: Yes normal to inspection, No Abdominal wall edema and No distended Palpation (GI): Soft to palpation, not firm, nontender, no guarding and not rigid : Male General Exam: Yes normal external exam Skin: General skin exam: no rashes or lesions noted Neuro: General: tone normal, moves all extremities and no focal motor deficits Extrem: Other: appreciable 1+ pitting edema to bilateral shins General: Yes normal to inspection, Yes full ROM and Yes capillary refill normal Psych: Other: unable to assess Objective Data Labs 02/16/24 04:43 02/16/24 04:43 Labs: Laboratory Results - last 24 hr 02/14/24 02/15/24 02/16/24 16:40 18:23 04:43 WBC 8.5 RBC 3.59 L Hgb 10.3 L Hct 31.3 L MCV 87.2 MCH 28.7 MCHC 32.9 RDW 16.4 H Plt Count 205 MPV 9.7 Immature Gran % (Auto) Cancelled Neut % (Auto) Cancelled Lymph % (Auto) Cancelled [place] % (Auto) Cancelled Eos % (Auto) Cancelled Baso % (Auto) Cancelled Lymph # (Auto) Cancelled [place] # (Auto) Cancelled Eos # (Auto) Cancelled Baso # (Auto) Cancelled Abs Immat Gran (auto) Cancelled Absolute Neuts (auto) Cancelled Absolute Nucleated RBC 0.040 H Nucleated RBC % (auto) 0.5 H Neutrophils % (Manual) 44 L Band Neutrophils % 10 H Lymphocytes % (Manual) 12 L Atypical Lymphs % (Man) 3 Monocytes % (Manual) 23 H Eosinophils % (Manual) 4 Basophils % (Manual) 1 Metamyelocytes % 2 Myelocytes % 1 Abs Neuts (Manual) 4.6 Lymphocytes # (Manual) 1.0 L Atyp Lymphs # (Manual) 0.3 Monocytes # (Manual) 2.0 H Eosinophils # (Manual) 0.3 Basophils # (Manual) 0.1 Metamyelocytes # 0.2 Myelocytes # 0.1 Platelet Estimate NORMAL Plt Morphology Comment NORMAL RBC Morphology NORMAL VBG pH VBG pCO2 VBG pO2 VBG HCO3 VBG O2 Saturation VBG Base Excess Sodium 145 143 Potassium 5.1 D 3.7 D Chloride 110 H 104 Carbon Dioxide 24 29 Anion Gap 16 14 BUN 31 H 32 H Creatinine 1.43 H 1.53 H Estim Creat Clear Calc 48.9 44.2 Estimated GFR 47 44 Random Glucose 126 H 116 H Calcium 8.5 9.2 D Phosphorus 3.8 3.5 Magnesium 2.0 1.9 Nasal Screen MRSA (PCR) NEGATIVE Nasal S. aureus Screen NEGATIVE Nasal MRSA/S.aureus Interp SEE NOTE 02/16/24 04:56 WBC RBC Hgb Hct MCV MCH MCHC RDW Plt Count MPV Immature Gran % (Auto) Neut % (Auto) Lymph % (Auto) [place] % (Auto) Eos % (Auto) Baso % (Auto) Lymph # (Auto) [place] # (Auto) Eos # (Auto) Baso # (Auto) Abs Immat Gran (auto) Absolute Neuts (auto) Absolute Nucleated RBC Nucleated RBC % (auto) Neutrophils % (Manual) Band Neutrophils % Lymphocytes % (Manual) Atypical Lymphs % (Man) Monocytes % (Manual) Eosinophils % (Manual) Basophils % (Manual) Metamyelocytes % Myelocytes % Abs Neuts (Manual) Lymphocytes # (Manual) Atyp Lymphs # (Manual) Monocytes # (Manual) Eosinophils # (Manual) Basophils # (Manual) Metamyelocytes # Myelocytes # Platelet Estimate Plt Morphology Comment RBC Morphology VBG pH 7.52 H VBG pCO2 38 VBG pO2 51 VBG HCO3 31 H VBG O2 Saturation 82.0 VBG Base Excess 8.6 Sodium Potassium Chloride Carbon Dioxide Anion Gap BUN Creatinine Estim Creat Clear Calc Estimated GFR Random Glucose Calcium Phosphorus Magnesium Nasal Screen MRSA (PCR) Nasal S. aureus Screen Nasal MRSA/S.aureus Interp Microbiology Microbiology Results: Microbiology 02/12/24 14:34 Blood - Venous Blood Culture - Preliminary No growth after 48 hours. 02/12/24 14:34 Blood - Venous Blood Culture - Preliminary No growth after 48 hours. 02/09/24 13:28 Blood - Venous Blood Culture - Final No growth after 5 days. 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%, atrial fibrillation, chronic renal insufficiency, presenting initially on 02/08 w/ acute hypoxic respiratory failure thought to be d/t aspiration, intubated, extubated, re-intubated N: intubated, sedated w/ propofol gtt, fentanyl gtt; c/f delirium prior to re- intubation; persistent agitation w/ attempts to wean sedation; repeat CT H unrevealing CV: intermittent sinus bradycardia w/o hemodynamic compromise, and QTc prolongation; to monitor closely; to avoid QTc-prolonging medications; CAD, c/b HF, atrial fibrillation on apixaban R: acute hypoxic respiratory failure, likely d/t aspiration, intubated, extubated, re-intubated 02/11, s/p bronchoscopy 02/14 w/ copious secretions; wean ventilator as tolerated GI: tube feeds : acute renal insufficiency, likely d/t congestion; furosemide gtt; to monitor renal indices H: no acute issues ID: BCx w/ haemophilus, likely respiratory source; empiric zosyn E: to monitor hypo-/hyper-glycemia P: no acute issues Quality Stroke Does the patient have a stroke diagnosis?: No VTE Prior VTE?: No VTE Risk Level:: Medical - moderate - high VTE Device Contraindication: Treatment Not Indicated VTE Drug Contraindication: N/A - Med Ordered
[2024-02-16] MEDS: amLODIPine Besylate 5 MG TABLET PO (08:41)
[2024-02-16] MEDS: Apixaban 2.5 MG TABLET PO ×2 (08:41→20:18)
[2024-02-16] MEDS: Famotidine/PF 20 MG/2 ML VIAL IVPUSH (08:41)
[2024-02-16] MEDS: Chlorhexidine Gluc Oral Rinse 15 ML MOUTHWASH BUCCAL ×3 (08:41→20:17)
[2024-02-16] MEDS: Magnesium Sulfate/D5W 1 GM/100 ML PIGGYBACK IV (08:42)
--- NOTE | 2024-02-16 10:57 | MHC.CLN ---
F/U PT REMAINS INTUBATED AND SEDATED REVIEWED LABS PT RECEIVING TF PROMOTE AT MAX GOAL RATE 60ML/HR WITH 300ML FREE WATER FLUSHES Q 6 HRS PROVIDES 1440KCALS (1984KCALS TOTAL WITH SEDATION; 22KCALS/KG), 90G PROTEIN (1.0G/KG), 2408ML TOTAL WATER FROM FORMULA AND FLUSHES (33ML/KG) CONTINUE TO MONITOR TOLERANCE AND LYTES
[2024-02-16] MEDS: Furosemide 200 MG in 0.9 % Sodium Chloride 80 ML IVCONT (11:32)
[2024-02-16] MEDS: propofoL 1,000 MG/100 ML VIAL 27.48 MG IVCONT ×4 (13:20→23:20)
[2024-02-16] MEDS: 0.9 % Sodium Chloride Flush 3 ML SYRINGE IVFLUSH ×2 (15:40→23:12)
[2024-02-16] MEDS: 0.9 % Sodium Chloride Flush 10 ML SYRINGE 5 ML IVFLUSH ×2 (15:40→20:18)
[2024-02-16 19:00] LABS: Anion Gap 15 (12-20); Blood Urea Nitrogen 33 mg/dL (9-16); Calcium 9.3 mg/dL (8.4-10.2); Carbon Dioxide 29 mmol/L (22-29); Chloride 100 mmol/L (96-108); Creatinine Clr Calc Pharmacy 44.5; Estimated Glomerular Filt Rate 44; Glucose Random 118 mg/dL (60-115); Magnesium 2.2 mg/dL (1.6-2.6); Phosphorus 3.5 mg/dL (2.7-4.5); Potassium 4.9 mmol/L (3.3-5.1); Sodium 139 mmol/L (135-145)
[2024-02-17] VITALS (30 sets, daily range): BP systolic 139–188; BP diastolic 57–88; PULSE 73–103; RESP 16–21; TEMP 34.9–38.2; O2SAT 87–98; BMI 36.3
[2024-02-17] MEDS: propofoL 1,000 MG/100 ML VIAL 20.61 MG IVCONT ×3 (03:52→23:46)
[2024-02-17 04:27] LABS: VBG Base Excess 11.5 mmol/L; VBG HCO3 34 mmol/L (22-26); VBG pCO2 37 mmHg; VBG pH 7.57 (7.32-7.43); VBG pO2 49 mmHg
[2024-02-17 04:40] LABS: Venous Blood Gas Refer to POC result
[2024-02-17 04:45] LABS: Hematocrit 33.6 % (42.0-52.0); Hemoglobin 10.8 g/dl (14.0-18.0); Mean Corpuscular HGB Conc 32.1 g/dl (31.0-36.0); Mean Corpuscular Hemoglobin 28.2 pg (27.0-33.0); Mean Corpuscular Volume 87.7 fL (80.0-98.0); Mean Platelet Volume 10.1 fL (9.4-12.4); NRBC Pct Auto 0.3 /100WBC (0.0-0.2); Platelet Count 222 X10*3/uL (160-400); Red Blood Count 3.83 X10*6/uL (4.60-5.80); Red Cell Distribution Width 16.3 % (11.0-16.0); White Blood Count 11.2 X10*3/uL (4.8-10.8)
[2024-02-17] MEDS: Piperacillin Sodium/Tazobactam 3.375 GM in 0.9 % Sodium Chloride 50 ML IV ×4 (04:57→23:35)
[2024-02-17 05:10] LABS: Band Neutrophils Percent 5 % (3-5); Basophils Abs Manual 0.1 X10*3/uL (0.0-0.2); Basophils Percent Manual 1 % (0-2); Lymphocytes Absolute Manual 2.1 X10*3/uL (1.2-4.9); Lymphocytes Percent Manual 19 % (20-40); Metamyelocytes Absolute 0.6 X10*3/uL; Metamyelocytes Percent 5 %; Monocytes Absolute Manual 1.3 X10*3/uL (0.1-1.2); Monocytes Percent Manual 12 % (2-11); Myelocytes Absolute 0.4 X10*/uL; Myelocytes Percent 4 %; Neutrophils Absolute Manual 6.6 X10*3/uL (2.0-8.3); Neutrophils Percent Manual 54 % (45-73)
[2024-02-17 05:12] LABS: Acanthocytes 1+ (0-2) /OIF; Ovalocytes 1+ (5-14) /OIF; Platelet Estimate NORMAL (NORMAL); Platelet Morphology Comment NORMAL; Polychromasia 1+ (0-2) /OIF; RBC Morphology NOTED; Schistocytes 1+ (0-2) /OIF
[2024-02-17] MEDS: Levothyroxine Sodium 100 MCG/5 ML VIAL 50 MCG IVPUSH (05:20)
[2024-02-17] MEDS: hydrALAZINE HCl 20 MG/ML VIAL 5 MG IVPUSH (06:35)
[2024-02-17 06:51] LABS: Anion Gap 16 (12-20); Blood Urea Nitrogen 39 mg/dL (9-16); Calcium 9.4 mg/dL (8.4-10.2); Carbon Dioxide 30 mmol/L (22-29); Chloride 97 mmol/L (96-108); Creatinine Clr Calc Pharmacy 41.7; Estimated Glomerular Filt Rate 41; Glucose Random 142 mg/dL (60-115); Magnesium 2.3 mg/dL (1.6-2.6); Phosphorus 3.9 mg/dL (2.7-4.5); Sodium 139 mmol/L (135-145)
--- NOTE | 2024-02-17 08:19 | P.PNCC_ITS ---
Subjective Subjective Date of Service: 02/17/24 Interval History: no significant overnight events Critical Care Time (minutes): 60 Physical Exam 2 Vital Signs: Vital Signs: Last Vital Signs Temp 99.5 F 02/17/24 08:00 Pulse 73 02/17/24 08:00 Resp 16 02/17/24 08:00 BP 159/66 H 02/17/24 08:00 Pulse Ox 97 02/17/24 08:00 O2 Del Method Mechanical Ventil ation 02/17/24 08:00 O2 Flow Rate 12 02/12/24 08:00 FiO2 35 02/17/24 08:00 BMI result Body Mass Index 36.3 Const: Other: intubated, sedated; no appreciable sponatenous movements General: comfortable, no acute distress and well developed HEENT: Head: Yes normal to inspection, Yes normocephalic and Yes atraumatic Eyes: General: appearance normal, both eyes and all related structures Neck: Neck: Yes normal visual inspection, Yes full ROM, Yes trachea midline and Yes supple Chest: Chest palpation & inspection: normal inspection of the chest Resp: Other: some appreciable rhonchi; no appreciable rales, wheezing Effort & Inspection: normal respiratory effort Cardio: Rate: regular rate Rhythm: abnormal rhythm GI: Inspection: Yes normal to inspection, No Abdominal wall edema and No distended Palpation (GI): Soft to palpation, not firm, nontender, no guarding and not rigid Skin: General skin exam: no rashes or lesions noted Neuro: General: tone normal Extrem: General: Yes normal to inspection, Yes full ROM, Yes capillary refill normal and Yes no clubbing, cyanosis or edema Psych: Other: unable to assess Objective Data Labs 02/17/24 04:12 02/17/24 06:31 Labs: Laboratory Results - last 24 hr 02/16/24 02/17/24 02/17/24 18:13 04:12 04:17 WBC 11.2 H RBC 3.83 L Hgb 10.8 L Hct 33.6 L MCV 87.7 MCH 28.2 MCHC 32.1 RDW 16.3 H Plt Count 222 MPV 10.1 Immature Gran % (Auto) Cancelled Neut % (Auto) Cancelled Lymph % (Auto) Cancelled [place] % (Auto) Cancelled Eos % (Auto) Cancelled Baso % (Auto) Cancelled Lymph # (Auto) Cancelled [place] # (Auto) Cancelled Eos # (Auto) Cancelled Baso # (Auto) Cancelled Abs Immat Gran (auto) Cancelled Absolute Neuts (auto) Cancelled Absolute Nucleated RBC 0.030 H Nucleated RBC % (auto) 0.3 H Neutrophils % (Manual) 54 Band Neutrophils % 5 Lymphocytes % (Manual) 19 L Monocytes % (Manual) 12 H Basophils % (Manual) 1 Metamyelocytes % 5 Myelocytes % 4 Abs Neuts (Manual) 6.6 Lymphocytes # (Manual) 2.1 Monocytes # (Manual) 1.3 H Basophils # (Manual) 0.1 Metamyelocytes # 0.6 Myelocytes # 0.4 Platelet Estimate NORMAL Plt Morphology Comment NORMAL RBC Morphology NOTED Polychromasia 1+ (0-2) Ovalocytes 1+ (5-14) Acanthocytes (Sp[place]) 1+ (0-2) Schistocytes 1+ (0-2) VBG pH 7.57 H VBG pCO2 37 VBG pO2 49 VBG HCO3 34 H VBG O2 Saturation 78.0 VBG Base Excess 11.5 Sodium 139 Potassium 4.9 D Chloride 100 Carbon Dioxide 29 Anion Gap 15 BUN 33 H Creatinine 1.52 H Estim Creat Clear Calc 44.5 Estimated GFR 44 Random Glucose 118 H Calcium 9.3 Phosphorus 3.5 Magnesium 2.2 02/17/24 06:31 WBC RBC Hgb Hct MCV MCH MCHC RDW Plt Count MPV Immature Gran % (Auto) Neut % (Auto) Lymph % (Auto) [place] % (Auto) Eos % (Auto) Baso % (Auto) Lymph # (Auto) [place] # (Auto) Eos # (Auto) Baso # (Auto) Abs Immat Gran (auto) Absolute Neuts (auto) Absolute Nucleated RBC Nucleated RBC % (auto) Neutrophils % (Manual) Band Neutrophils % Lymphocytes % (Manual) Monocytes % (Manual) Basophils % (Manual) Metamyelocytes % Myelocytes % Abs Neuts (Manual) Lymphocytes # (Manual) Monocytes # (Manual) Basophils # (Manual) Metamyelocytes # Myelocytes # Platelet Estimate Plt Morphology Comment RBC Morphology Polychromasia Ovalocytes Acanthocytes ([place]) Schistocytes VBG pH VBG pCO2 VBG pO2 VBG HCO3 VBG O2 Saturation VBG Base Excess Sodium 139 Potassium 4.0 Chloride 97 Carbon Dioxide 30 H Anion Gap 16 BUN 39 H Creatinine 1.62 H Estim Creat Clear Calc 41.7 Estimated GFR 41 Random Glucose 142 H Calcium 9.4 Phosphorus 3.9 Magnesium 2.3 Microbiology Microbiology Results: Microbiology 02/12/24 14:34 Blood - Venous Blood Culture - Preliminary No growth after 48 hours. 02/12/24 14:34 Blood - Venous Blood Culture - Preliminary No growth after 48 hours. 02/09/24 13:28 Blood - Venous Blood Culture - Final No growth after 5 days. 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%, atrial fibrillation, chronic renal insufficiency, presenting initially on 02/08 w/ acute hypoxic respiratory failure thought to be d/t aspiration, intubated, extubated, re-intubated N: intubated, sedated w/ propofol gtt; c/f delirium prior to re-intubation; intermittent agitation w/ attempts to wean sedation; repeat CT H unrevealing CV: intermittent sinus bradycardia w/o hemodynamic compromise, and QTc prolongation; to monitor closely; to avoid QTc-prolonging medications; CAD, c/b HF, atrial fibrillation on apixaban R: acute hypoxic respiratory failure, likely d/t aspiration, intubated, extubated, re-intubated 02/11, s/p bronchoscopy 02/14 w/ copious secretions; wean ventilator as tolerated GI: tube feeds : acute renal insufficiency, likely d/t congestion; furosemide gtt; to monitor renal indices H: no acute issues ID: BCx w/ haemophilus, likely respiratory source; empiric zosyn E: to monitor hypo-/hyper-glycemia P: intermittent agitation w/ attempts to wean sedation Quality Stroke Does the patient have a stroke diagnosis?: No VTE Prior VTE?: No VTE Risk Level:: Medical - moderate - high VTE Device Contraindication: Treatment Not Indicated VTE Drug Contraindication: N/A - Med Ordered
[2024-02-17] MEDS: Famotidine/PF 20 MG/2 ML VIAL IVPUSH (09:06)
[2024-02-17] MEDS: Chlorhexidine Gluc Oral Rinse 15 ML MOUTHWASH BUCCAL ×3 (09:07→20:17)
[2024-02-17] MEDS: amLODIPine Besylate 5 MG TABLET PO (09:07)
[2024-02-17] MEDS: Apixaban 2.5 MG TABLET PO ×2 (09:07→20:17)
[2024-02-17] MEDS: 0.9 % Sodium Chloride Flush 3 ML SYRINGE IVFLUSH ×2 (09:08→15:37)
[2024-02-17] MEDS: propofoL 1,000 MG/100 ML VIAL 6.87 MG IVCONT (10:00)
[2024-02-17] MEDS: Furosemide 200 MG in 0.9 % Sodium Chloride 80 ML IVCONT (11:32)
--- NOTE | 2024-02-17 12:53 | HO.SKINPHOTO ---
Location: Category: Stage: Length: Width: Depth: cm Location: Category: Stage: Length: Width: Depth: cm Location:upper lip Category:MDPI Stage: Length: Width: Depth: cm Location: Coccyx Category: stage 1 Stage: Length: Width: Depth: cm Location: Left aguilar Category: DTI Stage: Length: Width: Depth: cm Location: right aguilar Category:skin tear Stage: Length: Width: Depth: cm
[2024-02-17 15:53] LABS: Anion Gap 18 (12-20); Blood Urea Nitrogen 40 mg/dL (9-16); Calcium 9.5 mg/dL (8.4-10.2); Carbon Dioxide 29 mmol/L (22-29); Chloride 95 mmol/L (96-108); Creatinine Clr Calc Pharmacy 41.2; Estimated Glomerular Filt Rate 40; Glucose Random 139 mg/dL (60-115); Magnesium 2.4 mg/dL (1.6-2.6); Phosphorus 4.1 mg/dL (2.7-4.5); Potassium 4.2 mmol/L (3.3-5.1); Sodium 138 mmol/L (135-145)
[2024-02-17] MEDS: fentaNYL citrate/PF 100 MCG/2 ML VIAL 50 MCG IVPUSH (23:16)
[2024-02-18] VITALS (33 sets, daily range): BP systolic 126–178; BP diastolic 51–85; PULSE 79–97; RESP 16–27; TEMP 34.9–38.1; O2SAT 93–100; BMI 36.3
[2024-02-18] MEDS: hydrALAZINE HCl 20 MG/ML VIAL 5 MG IVPUSH (02:46)
[2024-02-18] MEDS: fentaNYL citrate/PF 100 MCG/2 ML VIAL 50 MCG IVPUSH ×2 (03:54→07:50)
[2024-02-18] MEDS: propofoL 1,000 MG/100 ML VIAL 20.61 MG IVCONT (03:54)
[2024-02-18 04:52] LABS: Hematocrit 33.7 % (42.0-52.0); Hemoglobin 11.6 g/dl (14.0-18.0); Mean Corpuscular HGB Conc 34.4 g/dl (31.0-36.0); Mean Corpuscular Hemoglobin 28.7 pg (27.0-33.0); Mean Corpuscular Volume 83.4 fL (80.0-98.0); Mean Platelet Volume 11.4 fL (9.4-12.4); Platelet Count 184 X10*3/uL (160-400); Red Blood Count 4.04 X10*6/uL (4.60-5.80); Red Cell Distribution Width 15.9 % (11.0-16.0); White Blood Count 13.2 X10*3/uL (4.8-10.8)
[2024-02-18 04:54] LABS: VBG Base Excess 8.3 mmol/L; VBG HCO3 29 mmol/L (22-26); VBG pCO2 29 mmHg; VBG pO2 71 mmHg
[2024-02-18 04:57] LABS: Venous Blood Gas Refer to POC result
[2024-02-18 05:05] LABS: Anion Gap 19 (12-20); Blood Urea Nitrogen 41 mg/dL (9-16); Calcium 9.6 mg/dL (8.4-10.2); Carbon Dioxide 25 mmol/L (22-29); Chloride 95 mmol/L (96-108); Creatinine Clr Calc Pharmacy 39.8; Estimated Glomerular Filt Rate 39; Glucose Random 146 mg/dL (60-115); Magnesium 2.5 mg/dL (1.6-2.6); Phosphorus 3.3 mg/dL (2.7-4.5); Potassium 3.7 mmol/L (3.3-5.1); Sodium 135 mmol/L (135-145)
[2024-02-18 05:12] LABS: Band Neutrophils Percent 3 % (3-5); Eosinophils Absolute Manual 0.4 X10*3/uL (0.0-0.4); Eosinophils Percent Manual 3 % (0-4); Lymphocytes Absolute Manual 2.1 X10*3/uL (1.2-4.9); Lymphocytes Percent Manual 16 % (20-40); Metamyelocytes Absolute 0.1 X10*3/uL; Metamyelocytes Percent 1 %; Monocytes Absolute Manual 1.8 X10*3/uL (0.1-1.2); Monocytes Percent Manual 14 % (2-11); Myelocytes Absolute 0.1 X10*/uL; Myelocytes Percent 1 %; Neutrophils Absolute Manual 8.6 X10*3/uL (2.0-8.3); Neutrophils Percent Manual 62 % (45-73)
[2024-02-18 05:13] LABS: RBC Morphology NOTED
[2024-02-18 05:14] LABS: Acanthocytes 1+ (0-2) /OIF; Ovalocytes 1+ (5-14) /OIF
[2024-02-18 05:15] LABS: Large Platelet PRESENT; Platelet Estimate NORMAL (NORMAL); Platelet Morphology Comment NOTED; Polychromasia 1+ (0-2) /OIF
[2024-02-18] MEDS: Piperacillin Sodium/Tazobactam 3.375 GM in 0.9 % Sodium Chloride 50 ML IV ×4 (05:17→23:18)
[2024-02-18] MEDS: Levothyroxine Sodium 100 MCG/5 ML VIAL 50 MCG IVPUSH (05:18)
[2024-02-18] MEDS: Famotidine/PF 20 MG/2 ML VIAL IVPUSH (07:50)
[2024-02-18] MEDS: amLODIPine Besylate 10 MG TABLET PO (07:51)
[2024-02-18] MEDS: Apixaban 2.5 MG TABLET PO ×2 (07:51→20:08)
[2024-02-18] MEDS: 0.9 % Sodium Chloride Flush 3 ML SYRINGE IVFLUSH ×2 (07:51→23:20)
[2024-02-18] MEDS: Chlorhexidine Gluc Oral Rinse 15 ML MOUTHWASH BUCCAL ×3 (07:53→20:08)
--- NOTE | 2024-02-18 08:03 | PM.CCPN ---
Subjective Subjective Date of Service: 02/18/24 Interval History: no significant overnight events Critical Care Time (minutes): 60 Physical Exam Vital Signs: Vital Signs: Last Vital Signs Temp 99.9 F 02/18/24 08:00 Pulse 97 02/18/24 08:00 Resp 20 02/18/24 08:00 BP 157/71 H 02/18/24 08:00 Pulse Ox 94 02/18/24 08:00 O2 Del Method Mechanical Ventil ation 02/18/24 08:00 O2 Flow Rate 12 02/12/24 08:00 FiO2 30 02/18/24 08:00 BMI result Body Mass Index 36.3 Const: Other: intubated, minimally sedated; intermittent appreciable spontaneous, non-purposeful movements HEENT: Head: Yes normal to inspection, Yes normocephalic and Yes atraumatic Eyes: General: appearance normal, both eyes and all related structures Neck: Neck: Yes normal visual inspection, Yes full ROM, Yes trachea midline and Yes supple Chest: Chest palpation & inspection: normal inspection of the chest Resp: Other: diminished breath sounds L, though satting mid 90s on PS FiO2 30 PEEP 5; no appreciable rales, rhonchi, wheezing Effort & Inspection: normal respiratory effort Cardio: Rate: regular rate Rhythm: abnormal rhythm GI: Inspection: Yes normal to inspection, No Abdominal wall edema and No distended Palpation (GI): Soft to palpation, not firm, nontender, no guarding and not rigid Skin: General skin exam: no rashes or lesions noted Neuro: General: tone normal and moves all extremities Extrem: General: Yes normal to inspection, Yes full ROM, Yes capillary refill normal and Yes no clubbing, cyanosis or edema Psych: Other: unable to assess Objective Data Labs 02/18/24 04:42 02/18/24 04:42 Labs: Laboratory Results - last 24 hr 02/17/24 02/18/24 02/18/24 15:18 04:41 04:42 WBC 13.2 H RBC 4.04 L Hgb 11.6 L Hct 33.7 L MCV 83.4 MCH 28.7 MCHC 34.4 RDW 15.9 Plt Count 184 MPV 11.4 Immature Gran % (Auto) Cancelled Neut % (Auto) Cancelled Lymph % (Auto) Cancelled [place] % (Auto) Cancelled Eos % (Auto) Cancelled Baso % (Auto) Cancelled Lymph # (Auto) Cancelled [place] # (Auto) Cancelled Eos # (Auto) Cancelled Baso # (Auto) Cancelled Abs Immat Gran (auto) Cancelled Absolute Neuts (auto) Cancelled Absolute Nucleated RBC 0.000 Nucleated RBC % (auto) 0.0 Neutrophils % (Manual) 62 Band Neutrophils % 3 Lymphocytes % (Manual) 16 L Monocytes % (Manual) 14 H Eosinophils % (Manual) 3 Metamyelocytes % 1 Myelocytes % 1 Abs Neuts (Manual) 8.6 H Lymphocytes # (Manual) 2.1 Monocytes # (Manual) 1.8 H Eosinophils # (Manual) 0.4 Metamyelocytes # 0.1 Myelocytes # 0.1 Platelet Estimate NORMAL Large Platelets PRESENT Plt Morphology Comment NOTED RBC Morphology NOTED Polychromasia 1+ (0-2) Ovalocytes 1+ (5-14) Acanthocytes (Sp[place]) 1+ (0-2) VBG pH 7.60 H* VBG pCO2 29 VBG pO2 71 VBG HCO3 29 H VBG O2 Saturation 93.0 VBG Base Excess 8.3 Sodium 138 135 Potassium 4.2 3.7 Chloride 95 L 95 L Carbon Dioxide 29 25 Anion Gap 18 19 BUN 40 H 41 H Creatinine 1.64 H 1.70 H Estim Creat Clear Calc 41.2 39.8 Estimated GFR 40 39 Random Glucose 139 H 146 H Calcium 9.5 9.6 Phosphorus 4.1 3.3 Magnesium 2.4 2.5 Microbiology Microbiology Results: Microbiology 02/12/24 14:34 Blood - Venous Blood Culture - Final No growth after 5 days. 02/12/24 14:34 Blood - Venous Blood Culture - Final No growth after 5 days. 02/09/24 13:28 Blood - Venous Blood Culture - Final No growth after 5 days. 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%, atrial fibrillation, chronic renal insufficiency, presenting initially on 02/08 w/ acute hypoxic respiratory failure thought to be d/t aspiration, intubated, extubated, re-intubated N: intubated, sedated w/ propofol gtt; c/f delirium prior to re-intubation; intermittent agitation w/ attempts to wean sedation; repeat CT H unrevealing CV: intermittent sinus bradycardia w/o hemodynamic compromise, and QTc prolongation; to monitor closely; to avoid QTc-prolonging medications; CAD, c/b HF, atrial fibrillation on apixaban R: acute hypoxic respiratory failure, likely d/t aspiration, intubated, extubated, re-intubated 02/11, s/p bronchoscopy 02/14 w/ copious secretions; wean ventilator as tolerated GI: tube feeds : acute renal insufficiency, likely d/t congestion; furosemide gtt; to monitor renal indices H: no acute issues ID: BCx w/ haemophilus, likely respiratory source; empiric zosyn E: to monitor hypo-/hyper-glycemia P: intermittent agitation w/ attempts to wean sedation Quality Stroke Does the patient have a stroke diagnosis?: No VTE Prior VTE?: No VTE Risk Level:: Medical - moderate - high VTE Device Contraindication: Treatment Not Indicated VTE Drug Contraindication: N/A - Med Ordered
[2024-02-18] MEDS: propofoL 1,000 MG/100 ML VIAL 13.74 MG IVCONT (08:07)
[2024-02-18] MEDS: Furosemide 200 MG in 0.9 % Sodium Chloride 80 ML IVCONT (11:53)
[2024-02-18] MEDS: 0.9 % Sodium Chloride Flush 10 ML SYRINGE IVFLUSH ×2 (15:56→23:20)
[2024-02-18 18:29] LABS: Anion Gap 17 (12-20); Blood Urea Nitrogen 43 mg/dL (9-16); Calcium 9.7 mg/dL (8.4-10.2); Carbon Dioxide 27 mmol/L (22-29); Chloride 95 mmol/L (96-108); Estimated Glomerular Filt Rate 37; Glucose Random 147 mg/dL (60-115); Magnesium 2.8 mg/dL (1.6-2.6); Phosphorus 4.4 mg/dL (2.7-4.5); Potassium 4.4 mmol/L (3.3-5.1); Sodium 135 mmol/L (135-145)
[2024-02-19] VITALS (30 sets, daily range): BP systolic 117–185; BP diastolic 50–84; PULSE 82–116; RESP 13–25; TEMP 34.2–38.3; O2SAT 30–891; BMI 35.5
[2024-02-19] MEDS: hydrALAZINE HCl 20 MG/ML VIAL 10 MG IVPUSH (00:32)
[2024-02-19 04:45] LABS: VBG Base Excess 9.3 mmol/L; VBG HCO3 31 mmol/L (22-26); VBG pCO2 34 mmHg; VBG pH 7.57 (7.32-7.43); VBG pO2 45 mmHg
[2024-02-19 04:52] LABS: Venous Blood Gas Refer to POC result
[2024-02-19 04:52] LABS: Basophils Absolute Auto 0.1 X10*3/uL (0.0-0.2); Basophils Percent Auto 0.3 % (0-2); Eosinophils Absolute Auto 0.2 X10*3/uL (0.0-0.4); Eosinophils Percent Auto 1.4 % (0-4); Hematocrit 34.7 % (42.0-52.0); Hemoglobin 11.5 g/dl (14.0-18.0); Imm Gran Abs Auto 0.44 X10*3/uL (0.00-0.03); Imm Gran Pct Auto 2.5 % (0.0-0.4); Lymphocytes Percent Auto 11.3 % (20-40); MANUAL DIFF FLAG SCAN; Mean Corpuscular HGB Conc 33.1 g/dl (31.0-36.0); Mean Corpuscular Hemoglobin 28.6 pg (27.0-33.0); Mean Corpuscular Volume 86.3 fL (80.0-98.0); Mean Platelet Volume 10.3 fL (9.4-12.4); Monocytes Absolute Auto 2.5 X10*3/uL (0.1-1.2); Monocytes Percent Auto 14.4 % (2-11); Neutrophils Absolute Auto 12.2 x10*3/uL (2.0-8.3); Neutrophils Percent Auto 70.1 % (45-73); Platelet Count 216 X10*3/uL (160-400); Red Blood Count 4.02 X10*6/uL (4.60-5.80); Red Cell Distribution Width 15.9 % (11.0-16.0); SCAN SMEAR FLAG 1; White Blood Count 17.4 X10*3/uL (4.8-10.8)
[2024-02-19 05:09] LABS: Anion Gap 18 (12-20); Blood Urea Nitrogen 45 mg/dL (9-16); Calcium 9.5 mg/dL (8.4-10.2); Carbon Dioxide 26 mmol/L (22-29); Chloride 95 mmol/L (96-108); Estimated Glomerular Filt Rate 37; Glucose Random 160 mg/dL (60-115); Magnesium 2.8 mg/dL (1.6-2.6); Phosphorus 4.3 mg/dL (2.7-4.5); Potassium 4.8 mmol/L (3.3-5.1); Sodium 134 mmol/L (135-145)
[2024-02-19 05:10] LABS: SLIDE REVIEW VERIFIED
[2024-02-19] MEDS: Piperacillin Sodium/Tazobactam 3.375 GM in 0.9 % Sodium Chloride 50 ML IV ×3 (05:12→16:07)
[2024-02-19] MEDS: Levothyroxine Sodium 88 MCG TABLET PO (05:18)
--- NOTE | 2024-02-19 07:00 | ECG_ITS ---
Test Reason : qtc check Blood Pressure : / mmHG Vent. Rate : 095 BPM Atrial Rate : 095 BPM P-R Int : 200 ms QRS Dur : 082 ms QT Int : 478 ms P-R-T Axes : 025 -46 047 degrees QTc Int : 600 ms Sinus rhythm with Premature atrial complexes Left axis deviation Minimal voltage criteria for LVH, may be normal variant ( R in aVL ) Inferior infarct , age undetermined Anterior infarct , age undetermined Abnormal ECG When compared with ECG of 16-FEB-2024 07:22, Premature atrial complexes are now Present Referred By: Grisel Marte Electronically Signed By:JOSE ENRIQUEZ
[2024-02-19] MEDS: 0.9 % Sodium Chloride Flush 10 ML SYRINGE IVFLUSH ×2 (07:08→14:03)
--- NOTE | 2024-02-19 07:42 | PM.CCPN ---
Subjective Subjective Date of Service: 02/19/24 Interval History: no significant overnight events Critical Care Time (minutes): 60 Physical Exam Vital Signs: Vital Signs: Last Vital Signs Temp 100.2 F 02/19/24 07:00 Pulse 109 H 02/19/24 07:00 Resp 18 02/19/24 07:00 BP 159/75 H 02/19/24 07:00 Pulse Ox 95 02/19/24 07:00 O2 Del Method Mechanical Ventil ation 02/19/24 07:00 O2 Flow Rate 12 02/12/24 08:00 FiO2 30 02/19/24 07:00 BMI result Body Mass Index 35.5 Const: Other: intubated, not sedated; no appreciable purposeful movements; some appreciable grimacing to routine care General: no acute distress and well developed HEENT: Head: Yes normal to inspection, Yes normocephalic and Yes atraumatic Eyes: General: appearance normal, both eyes and all related structures Neck: Neck: Yes normal visual inspection, Yes full ROM, Yes trachea midline and Yes supple Chest: Chest palpation & inspection: normal inspection of the chest Resp: Other: diminished breath sounds L; no appreciable rales, rhonchi, wheezing Cardio: Rate: regular rate Rhythm: regular rhythm GI: Inspection: Yes normal to inspection, No Abdominal wall edema and No distended Palpation (GI): Soft to palpation, not firm, nontender, no guarding and not rigid : Male General Exam: Yes normal external exam Skin: General skin exam: no rashes or lesions noted Neuro: General: tone normal Extrem: General: Yes normal to inspection, Yes full ROM, Yes capillary refill normal and Yes no clubbing, cyanosis or edema Psych: Other: unable to assess Objective Data Labs 02/19/24 04:33 02/19/24 04:33 Labs: Laboratory Results - last 24 hr 02/18/24 02/19/24 02/19/24 18:01 04:33 04:37 WBC 17.4 H RBC 4.02 L Hgb 11.5 L Hct 34.7 L MCV 86.3 MCH 28.6 MCHC 33.1 RDW 15.9 Plt Count 216 MPV 10.3 Immature Gran % (Auto) 2.5 H Neut % (Auto) 70.1 Lymph % (Auto) 11.3 L [place] % (Auto) 14.4 H Eos % (Auto) 1.4 Baso % (Auto) 0.3 Lymph # (Auto) 2.0 [place] # (Auto) 2.5 H Eos # (Auto) 0.2 Baso # (Auto) 0.1 Abs Immat Gran (auto) 0.44 H Absolute Neuts (auto) 12.2 H Absolute Nucleated RBC 0.000 Nucleated RBC % (auto) 0.0 Smear Tech's Comments VERIFIED VBG pH 7.57 H VBG pCO2 34 VBG pO2 45 VBG HCO3 31 H VBG O2 Saturation 72.0 VBG Base Excess 9.3 Sodium 135 134 L Potassium 4.4 4.8 Chloride 95 L 95 L Carbon Dioxide 27 26 Anion Gap 17 18 BUN 43 H 45 H Creatinine 1.78 H 1.78 H Estim Creat Clear Calc 38.0 38.0 Estimated GFR 37 37 Random Glucose 147 H 160 H Calcium 9.7 9.5 Phosphorus 4.4 4.3 Magnesium 2.8 H 2.8 H Microbiology Microbiology Results: Microbiology 02/12/24 14:34 Blood - Venous Blood Culture - Final No growth after 5 days. 02/12/24 14:34 Blood - Venous Blood Culture - Final No growth after 5 days. 02/09/24 13:28 Blood - Venous Blood Culture - Final No growth after 5 days. 02/09/24 13:28 Blood - Venous Blood Culture - Final Haemophilus influenzae Progress Note: A&P Assessment and plan (1) Altered mental status: Status: Acute (2) Acute respiratory failure with hypoxia: Status: Acute (3) Aspiration pneumonia: Status: Acute (4) Coronary artery disease: Status: Acute (5) Atrial fibrillation: Status: Acute Plan Patient is a 83 Y M with coronary artery disease, c/b heart failure w/ reduced EF 45%, atrial fibrillation, chronic renal insufficiency, presenting initially on 02/08 w/ acute hypoxic respiratory failure thought to be d/t aspiration, intubated, extubated, re-intubated N: intubated, sedated w/ propofol gtt; c/f delirium prior to re-intubation; repeat CT H unrevealing; poor arousal despite sedation cessation CV: intermittent sinus bradycardia w/o hemodynamic compromise, and QTc prolongation; to monitor closely; to avoid QTc-prolonging medications; CAD, c/b HF, atrial fibrillation on apixaban R: acute hypoxic respiratory failure, likely d/t aspiration, intubated, extubated, re-intubated 02/11, s/p bronchoscopy 02/14 w/ copious secretions; wean ventilator as tolerated GI: tube feeds : acute renal insufficiency, likely d/t congestion; furosemide gtt; to monitor renal indices H: no acute issues ID: BCx w/ haemophilus, likely respiratory source; empiric zosyn E: to monitor hypo-/hyper-glycemia P: initially agitation w/ weaning sedation, now poor arousal Quality Stroke Does the patient have a stroke diagnosis?: No VTE Prior VTE?: No VTE Risk Level:: Medical - moderate - high VTE Device Contraindication: Treatment Not Indicated VTE Drug Contraindication: N/A - Med Ordered
[2024-02-19] MEDS: Famotidine/PF 20 MG/2 ML VIAL IVPUSH (08:16)
[2024-02-19] MEDS: amLODIPine Besylate 10 MG TABLET PO (08:16)
[2024-02-19] MEDS: Apixaban 2.5 MG TABLET PO ×2 (08:16→20:29)
[2024-02-19] MEDS: Chlorhexidine Gluc Oral Rinse 15 ML MOUTHWASH BUCCAL ×3 (08:16→20:29)
--- NOTE | 2024-02-19 09:03 | MHC.CLN ---
F/U PT REMAINS INTUBATED REVIEWED LABS SEDATION OFF PT RECEIVING TF PROMOTE AT MAX GOAL RATE 60ML/HR WITH 240ML FREE WATER FLUSHES Q 6 HRS PROVIDES 1440KCALS, 90G PROTEIN (1.0G/KG BASED ON CMW), 2168ML TOTAL WATER FROM FORMULA AND FLUSHES (24ML/KG) CONTINUE TO MONITOR TOLERANCE AND LYTES
[2024-02-19] MEDS: Furosemide 200 MG in 0.9 % Sodium Chloride 80 ML IVCONT (11:54)
--- NOTE | 2024-02-19 12:37 | MHC.CM.PN ---
EMR REVIEWED. PT REMAINS IN ICU, INTUBATED AND SEDATED. CM WILL CONTINUE TO FOLLOW FOR PLAN.
[2024-02-19 19:40] LABS: Anion Gap 14 (12-20); Blood Urea Nitrogen 45 mg/dL (9-16); Calcium 8.8 mg/dL (8.4-10.2); Carbon Dioxide 27 mmol/L (22-29); Chloride 97 mmol/L (96-108); Creatinine Clr Calc Pharmacy 39.5; Estimated Glomerular Filt Rate 39; Glucose Random 144 mg/dL (60-115); Magnesium 2.8 mg/dL (1.6-2.6); Potassium 4.5 mmol/L (3.3-5.1); Sodium 133 mmol/L (135-145)
[2024-02-20] VITALS (30 sets, daily range): BP systolic 130–160; BP diastolic 48–80; PULSE 15–108; RESP 13–23; TEMP 35–38.2; O2SAT 95–99; BMI 35.5
[2024-02-20] MEDS: 0.9 % Sodium Chloride Flush 10 ML SYRINGE IVFLUSH ×3 (00:04→15:31)
[2024-02-20] MEDS: Levothyroxine Sodium 88 MCG TABLET PO (05:27)
[2024-02-20 05:30] LABS: VBG Base Excess 9.5 mmol/L; VBG HCO3 30 mmol/L (22-26); VBG pCO2 29 mmHg; VBG pH 7.62 (7.32-7.43); VBG pO2 46 mmHg
[2024-02-20 05:38] LABS: Basophils Absolute Auto 0.1 X10*3/uL (0.0-0.2); Basophils Percent Auto 0.4 % (0-2); Eosinophils Absolute Auto 0.3 X10*3/uL (0.0-0.4); Eosinophils Percent Auto 1.8 % (0-4); Hemoglobin 10.6 g/dl (14.0-18.0); Imm Gran Abs Auto 0.22 X10*3/uL (0.00-0.03); Imm Gran Pct Auto 1.6 % (0.0-0.4); Lymphocytes Absolute Auto 2.3 X10*3/uL (1.2-4.9); Lymphocytes Percent Auto 16.5 % (20-40); MANUAL DIFF FLAG SCAN; Mean Corpuscular HGB Conc 33.1 g/dl (31.0-36.0); Mean Corpuscular Hemoglobin 28.4 pg (27.0-33.0); Mean Corpuscular Volume 85.8 fL (80.0-98.0); Mean Platelet Volume 10.4 fL (9.4-12.4); Monocytes Absolute Auto 1.7 X10*3/uL (0.1-1.2); Monocytes Percent Auto 11.9 % (2-11); Neutrophils Absolute Auto 9.6 x10*3/uL (2.0-8.3); Neutrophils Percent Auto 67.8 % (45-73); Platelet Count 174 X10*3/uL (160-400); Red Blood Count 3.73 X10*6/uL (4.60-5.80); Red Cell Distribution Width 15.7 % (11.0-16.0); SCAN SMEAR FLAG 1; White Blood Count 14.1 X10*3/uL (4.8-10.8)
[2024-02-20 05:57] LABS: Anion Gap 16 (12-20); Blood Urea Nitrogen 45 mg/dL (9-16); Calcium 9.3 mg/dL (8.4-10.2); Carbon Dioxide 26 mmol/L (22-29); Chloride 96 mmol/L (96-108); Creatinine Clr Calc Pharmacy 36.9; Estimated Glomerular Filt Rate 36; Glucose Random 149 mg/dL (60-115); Magnesium 2.8 mg/dL (1.6-2.6); Phosphorus 3.8 mg/dL (2.7-4.5); Potassium 4.6 mmol/L (3.3-5.1); Sodium 133 mmol/L (135-145)
[2024-02-20 06:04] LABS: Venous Blood Gas Refer to POC result
[2024-02-20 06:06] LABS: SLIDE REVIEW VERIFIED
--- NOTE | 2024-02-20 07:00 | ECG_ITS ---
Test Reason : qtc check Blood Pressure : / mmHG Vent. Rate : 097 BPM Atrial Rate : 096 BPM P-R Int : 000 ms QRS Dur : 082 ms QT Int : 368 ms P-R-T Axes : 000 -42 070 degrees QTc Int : 467 ms Normal sinus rhythm Left axis deviation Minimal voltage criteria for LVH, may be normal variant ( R in aVL ) Inferior infarct (cited on or before 19-FEB-2024) ST & T wave abnormality, consider anterolateral ischemia Abnormal ECG When compared with ECG of 19-FEB-2024 06:51, No significant changes seen Referred By: Grisel Marte Electronically Signed By:JOSE ENRIQUEZ
--- NOTE | 2024-02-20 08:09 | P.PNCC_ITS ---
Subjective Subjective Date of Service: 02/20/24 Interval History: no significant overnight events Critical Care Time (minutes): 60 Physical Exam 2 Vital Signs: Vital Signs: Last Vital Signs Temp 100.4 F 02/20/24 07:00 Pulse 104 H 02/20/24 07:00 Resp 18 02/20/24 07:00 BP 140/64 H 02/20/24 07:00 Pulse Ox 98 02/20/24 07:00 O2 Del Method Mechanical Ventil ation 02/20/24 07:00 O2 Flow Rate 12 02/12/24 08:00 FiO2 30 02/20/24 07:40 BMI result Body Mass Index 35.5 Const: Other: intubated; no appreciable spontaneous movements; grimaces and withdraws to noxious stimulus General: well developed HEENT: Head: Yes normal to inspection, Yes normocephalic and Yes atraumatic Eyes: General: appearance normal, both eyes and all related structures Neck: Neck: Yes normal visual inspection, Yes full ROM, Yes trachea midline and Yes supple Chest: Chest palpation & inspection: normal inspection of the chest Resp: Other: diminished breath sounds L; no appreciable rales, rhonchi, wheezing Effort & Inspection: normal respiratory effort Cardio: Rate: regular rate Rhythm: regular rhythm GI: Inspection: Yes normal to inspection, No Abdominal wall edema and No distended Palpation (GI): Soft to palpation, not firm, nontender, no guarding and not rigid Skin: General skin exam: no rashes or lesions noted Neuro: General: tone normal Extrem: General: Yes normal to inspection, Yes full ROM, Yes capillary refill normal and Yes no clubbing, cyanosis or edema Psych: Other: unable to assess Objective Data Labs 02/20/24 05:15 02/20/24 05:15 Labs: Laboratory Results - last 24 hr 02/19/24 02/20/24 02/20/24 19:09 05:15 05:20 WBC 14.1 H RBC 3.73 L Hgb 10.6 L Hct 32.0 L MCV 85.8 MCH 28.4 MCHC 33.1 RDW 15.7 Plt Count 174 MPV 10.4 Immature Gran % (Auto) 1.6 H Neut % (Auto) 67.8 Lymph % (Auto) 16.5 L Mckean % (Auto) 11.9 H Eos % (Auto) 1.8 Baso % (Auto) 0.4 Lymph # (Auto) 2.3 Mckean # (Auto) 1.7 H Eos # (Auto) 0.3 Baso # (Auto) 0.1 Abs Immat Gran (auto) 0.22 H Absolute Neuts (auto) 9.6 H Absolute Nucleated RBC 0.000 Nucleated RBC % (auto) 0.0 Smear Tech's Comments VERIFIED VBG pH 7.62 H* VBG pCO2 29 VBG pO2 46 VBG HCO3 30 H VBG O2 Saturation 76.0 VBG Base Excess 9.5 Sodium 133 L 133 L Potassium 4.5 4.6 Chloride 97 96 Carbon Dioxide 27 26 Anion Gap 14 16 BUN 45 H 45 H Creatinine 1.69 H 1.81 H Estim Creat Clear Calc 39.5 36.9 Estimated GFR 39 36 Random Glucose 144 H 149 H Calcium 8.8 D 9.3 Phosphorus 4.0 3.8 Magnesium 2.8 H 2.8 H Microbiology Microbiology Results: Microbiology 02/12/24 14:34 Blood - Venous Blood Culture - Final No growth after 5 days. 02/12/24 14:34 Blood - Venous Blood Culture - Final No growth after 5 days. 02/09/24 13:28 Blood - Venous Blood Culture - Final No growth after 5 days. 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%, atrial fibrillation, chronic renal insufficiency, presenting initially on 02/08 w/ acute hypoxic respiratory failure thought to be d/t aspiration, intubated, extubated, re-intubated N: intubated, not sedated; c/f delirium prior to re-intubation; repeat CT H unrevealing; poor arousal despite sedation cessation CV: intermittent sinus bradycardia w/o hemodynamic compromise, and QTc prolongation; to monitor closely; to avoid QTc-prolonging medications; CAD, c/b HF, atrial fibrillation on apixaban R: acute hypoxic respiratory failure, likely d/t aspiration, intubated, extubated, re-intubated 02/11, s/p bronchoscopy 02/14 w/ copious secretions; wean ventilator as tolerated GI: tube feeds : acute renal insufficiency; to monitor renal indices H: no acute issues ID: BCx w/ haemophilus, likely respiratory source; empiric zosyn E: to monitor hypo-/hyper-glycemia P: initially agitation w/ weaning sedation, now poor arousal Quality Stroke Does the patient have a stroke diagnosis?: No VTE Prior VTE?: No VTE Risk Level:: Medical - moderate - high VTE Device Contraindication: Treatment Not Indicated VTE Drug Contraindication: N/A - Med Ordered
[2024-02-20] MEDS: Chlorhexidine Gluc Oral Rinse 15 ML MOUTHWASH BUCCAL ×3 (08:23→20:11)
[2024-02-20] MEDS: Famotidine/PF 20 MG/2 ML VIAL IVPUSH (08:23)
[2024-02-20] MEDS: amLODIPine Besylate 10 MG TABLET PO (08:24)
[2024-02-20] MEDS: Apixaban 2.5 MG TABLET PO ×2 (08:24→20:11)
--- NOTE | 2024-02-20 09:51 | MHC.CLN ---
F/U PT REMAINS INTUBATED REVIEWED LABS NOTED LOW SERUM NA; SEDATION OFF DISCUSSED AT ROUNDS WITH MD-FREQUENT LOOSE STOOLS PT RECEIVING TF PROMOTE AT MAX GOAL RATE 60ML/HR WITH 240ML FREE WATER FLUSHES Q 6 HRS PROVIDES 1440KCALS, 90G PROTEIN (1.0G/KG BASED ON CMW), 2168ML TOTAL WATER FROM FORMULA AND FLUSHES (24ML/KG) RECOMMEND D/C FREE WATER FLUSHES 240ML Q 6 HRS R/T LOW SERUM NA-NSG AWARE CONTINUE TO MONITOR TOLERANCE AND LYTES
--- NOTE | 2024-02-20 16:46 | HO.WOUND ---
Addendum entered by Dinora Jha RN 02/20/24 17:17: Recommendations: 1. Turn and Reposition every 2 hours and as needed for patient comfort.? Use pillows or wedges to support off loading positions. 2. Off Load all bony prominences with use of pillows and heel boots if needed.? Apply Preventative foams where needed. ? 3. Monitor for incontinence and moisture control, use barrier creams when needed for prevention and treatment. 4. Provide adequate and supplemental nutrition.? 5. Continue low air loss mattress. 6. When applicable maintain blood glucose levels per Providers order. 7. Upper Lip - Frequent oral care to be provided and continue to off load ET tube per Respiratory Therapist recommendations. 8. Bilateral Medel - Cleanse with Ns moist gauze, Pat dry,. Apply skin prep to periwound, cover with foam dressing. Change every 3 days and PRN. 9. Sacrococcygeal - Off Load Pressure - Cleanse with PH balanced wipes, apply barrier cream and sacral foam dressing. Change every 3 days and PRN. Original Note: Wound Consult: Initial 84yr old?Male admitted to [facility] [place] on 02/09/24 - See progress notes and H&P for detailed history.? Wound consult placed for Upper Lip Wound, Coccyx wound and Left Lower Leg wound.? Patient is intubated at the time of my consultation and remains in ICU level of care. Et tube mcnamara in place offloaded from upper Lip and Maxilla Upper Inner Lip Etiology: ??Device related Mucosal Pressure Injury Measurements: 1cm x 3cm x 0.2cm Wound Bed: full thickness wound- yellow necrotic tissue noted with various areas of dark purple tissue Drainage / Odor: yellow drainage noted no odor noted Edges: ? linear Shirley wound: ?Swelling and erythema noted - No Induration, Fluctuance or Warmth noted Goals of Treatment: Off Load Pressure - Limited topical treatment given location - Frequent Mouth care to be provided Provider to consider Trach Placement Right Leg -resurfacing venous dermatitis - foam dressing in place Left Leg - venous dermatitis - partial thickness tissue loss and foam dressing in place Sacrococcygeal area Etiology: Deep Tissue Injury in Evolution Wound Bed: Irregular patter of dark purple nonblanchable tissue small scattered areas of red moist partial thickness tissue Drainage / Odor: serosangineous drainage noted on bed linen Edges: attached and irregular Shirley wound: ? red blanchable erythema noted MASD - patient is noted for frequent loose stools - No Induration, Fluctuance or Warmth noted Goals of Treatment: Off Load Pressure - Barrier cream and foam dressing in place. Of note the patient remains critically ill see provider notes for details. Despite pressure injury development the proper preventative measures have been in place, ADY and Specialty mattress in use, Wedges for off loading in use with frequent repositions see charting for detailed. Preventative foams and heel protectors in place to elbows and heels, in addition to barrier creams. Recommendations: 1. Turn and Reposition every 2 hours and as needed for patient comfort.? Use pillows or wedges to support off loading positions. 2. Off Load all bony prominences with use of pillows and heel boots if needed.? Apply Preventative foams where needed. ? 3. Monitor for incontinence and moisture control, use barrier creams when needed for prevention and treatment. 4. Provide adequate and supplemental nutrition.? 5. Order or Continue low air loss mattress. 6. When applicable maintain blood glucose levels per Providers order. 7. Re-consult wound care Nurse for wound deterioration or wound changes.
[2024-02-21] VITALS (30 sets, daily range): BP systolic 125–164; BP diastolic 52–75; PULSE 77–99; RESP 12–21; TEMP 35–38; O2SAT 93–99; BMI 36.9
[2024-02-21] MEDS: 0.9 % Sodium Chloride Flush 10 ML SYRINGE IVFLUSH ×3 (00:26→16:51)
[2024-02-21 05:18] LABS: VBG Base Excess 12.1 mmol/L; VBG HCO3 35 mmol/L (22-26); VBG pCO2 42 mmHg; VBG pH 7.53 (7.32-7.43); VBG pO2 44 mmHg
[2024-02-21 05:22] LABS: Basophils Absolute Auto 0.1 X10*3/uL (0.0-0.2); Basophils Percent Auto 0.5 % (0-2); Eosinophils Absolute Auto 0.3 X10*3/uL (0.0-0.4); Eosinophils Percent Auto 2.1 % (0-4); Hematocrit 30.8 % (42.0-52.0); Imm Gran Abs Auto 0.14 X10*3/uL (0.00-0.03); Imm Gran Pct Auto 1.1 % (0.0-0.4); Lymphocytes Absolute Auto 2.1 X10*3/uL (1.2-4.9); Lymphocytes Percent Auto 17.1 % (20-40); MANUAL DIFF FLAG SCAN; Mean Corpuscular HGB Conc 32.5 g/dl (31.0-36.0); Mean Corpuscular Hemoglobin 28.2 pg (27.0-33.0); Mean Platelet Volume 10.8 fL (9.4-12.4); Monocytes Absolute Auto 1.7 X10*3/uL (0.1-1.2); Monocytes Percent Auto 13.7 % (2-11); Neutrophils Absolute Auto 8.1 x10*3/uL (2.0-8.3); Neutrophils Percent Auto 65.5 % (45-73); Platelet Count 169 X10*3/uL (160-400); Red Blood Count 3.54 X10*6/uL (4.60-5.80); Red Cell Distribution Width 15.4 % (11.0-16.0); SCAN SMEAR FLAG 1; White Blood Count 12.4 X10*3/uL (4.8-10.8)
[2024-02-21 05:27] LABS: Albumin Level 2.9 g/dL (3.5-5.0)
[2024-02-21 05:36] LABS: Anion Gap 16 (12-20); Blood Urea Nitrogen 43 mg/dL (9-16); Calcium 9.4 mg/dL (8.4-10.2); Carbon Dioxide 26 mmol/L (22-29); Chloride 97 mmol/L (96-108); Creatinine Clr Calc Pharmacy 43.1; Estimated Glomerular Filt Rate 43; Glucose Random 137 mg/dL (60-115); Magnesium 2.8 mg/dL (1.6-2.6); Potassium 4.8 mmol/L (3.3-5.1); Sodium 134 mmol/L (135-145)
[2024-02-21] MEDS: Levothyroxine Sodium 88 MCG TABLET PO (05:49)
[2024-02-21 05:51] LABS: SLIDE REVIEW VERIFIED
[2024-02-21 06:36] LABS: Venous Blood Gas Refer to POC result
--- NOTE | 2024-02-21 07:00 | ECG_ITS ---
Test Reason : qtc check Blood Pressure : / mmHG Vent. Rate : 093 BPM Atrial Rate : 093 BPM P-R Int : 246 ms QRS Dur : 078 ms QT Int : 394 ms P-R-T Axes : 067 -44 084 degrees QTc Int : 489 ms Sinus rhythm with 1st degree A-V block with Premature atrial complexes Left axis deviation Inferior infarct (cited on or before 19-FEB-2024) Abnormal ECG When compared with ECG of 20-FEB-2024 07:26, Premature atrial complexes are now Present T wave inversion less evident in Anterior leads Referred By: Grisel Marte Electronically Signed By:JOSE ENRIQUEZ
[2024-02-21] MEDS: Famotidine/PF 20 MG/2 ML VIAL IVPUSH (07:34)
[2024-02-21] MEDS: Apixaban 2.5 MG TABLET PO ×2 (07:39→21:15)
[2024-02-21] MEDS: Albumin Human 25 % 100 ML IV ×3 (07:39→21:11)
[2024-02-21] MEDS: amLODIPine Besylate 10 MG TABLET PO (07:39)
[2024-02-21] MEDS: Chlorhexidine Gluc Oral Rinse 15 ML MOUTHWASH BUCCAL ×3 (07:39→21:15)
--- NOTE | 2024-02-21 09:46 | MHC.CLN ---
F/U PT REMAINS INTUBATED WITHOUT SEDATION REVIEWED LABS NOTED SERUM NA REMAINS LOW DISCUSSED AT ROUNDS WITH PT RECEIVING TF PROMOTE AT MAX GOAL RATE 60ML/HR PROVIDES 1440KCALS, 90G PROTEIN (1.0G/KG BASED ON CMW), 1208ML TOTAL WATER FROM FORMULA NOTED NEW DTI COCCYX -PT WITH INCREASED NUTRITION NEEDS R/T PRESSURE INJURY RECOMMEND SWITCHING FORMULA TO NEPRO AT MAX GOAL RATE 40ML/HR WITH 30ML PROSOURCE BID TO PROVIDE 1848 TOTAL KCALS (25KCALS/KG BASED ON IBW), 108G TOTAL PROTEIN (1.5G/KG FOR WOUND HEALING), 1256ML FREE WATER FROM FORMULA MONITOR TOLERANCE AND LYTES
--- NOTE | 2024-02-21 09:58 | PC.RT ---
Difficulty passing sxn catheter this am, Dr Jackson using an tube exchanger was able to exchange ett with 8.0, 26 at thh lip on 1 attempt with no difficulty. Pt maintained spo2 and vitals were observed. the tube affixing device was placedon the pts chin rather than his upper lip due to breakdown. The ett was secured and offloaded for minimal contact with pts upper lip. RN present and aware and MD was also made aware. The pt reji this procedure well and cont on [facility] ventilation on cpap/psv comfortably.
--- NOTE | 2024-02-21 10:03 | PM.CCPN ---
Subjective Subjective Date of Service: 02/21/24 Interval History: 83-year-old gentleman with underlying paroxysmal AFib on anticoagulation, CAD, congestive heart failure with EF was 45%, chronic renal disease stage III admitted on 02/09/2024 with alteration of mental status and acute hypoxic respiratory failure likely secondary to aspiration event requiring intubation and ventilatory support. Patient started on empiric antibiotics. CT head demonstrated no intracranial bleed. He was admitted to the intensive care unit. Patient initially extubated on 02/11/2024, but required re-intubation 02/12/2024 secondary to ongoing encephalopathy with aspiration. Now status post bronchoscopy with lavage for copious secretions on 02/15/2024. Hospital course further complicated by persistent encephalopathy/hospital-acquired delirium with inability to wean off mechanical ventilation. No events overnight. Critical Care Time (minutes): 60 Physical Exam Vital Signs: Vital Signs: Last Vital Signs Temp 100.4 F 02/21/24 10:00 Pulse 95 02/21/24 10:00 Resp 20 02/21/24 10:00 BP 133/58 L 02/21/24 10:00 Pulse Ox 94 02/21/24 10:00 O2 Del Method Mechanical Ventil ation 02/21/24 10:00 O2 Flow Rate 30 02/20/24 20:00 FiO2 30 02/21/24 10:00 BMI result Body Mass Index 36.9 Const: General: no acute distress and other (Poor arousal despite prolonged sedation vacation, heavily encephalopathic) Nutritional Appearance: Edematous Eyes: Sclerae: sclerae normal EOM: EOMs intact bilaterally Neck: Neck: Yes no lymphadenopathy, Yes trachea midline and Yes supple Resp: Auscultation: clear to auscultation bilaterally Cardio: Rate: regular rate Rhythm: regular rhythm Heart sounds: no gallops, no murmurs and no rubs GI: Palpation (GI): Soft to palpation and Other GI palpation findings present ( Nontender) Auscultation: normal bowel sounds Extrem: General: No clubbing, No cyanosis and Yes edema (1+ bilateral) Objective Data Labs 02/21/24 05:10 02/21/24 05:10 Labs: Laboratory Results - last 24 hr 02/21/24 02/21/24 05:09 05:10 WBC 12.4 H RBC 3.54 L Hgb 10.0 L Hct 30.8 L MCV 87.0 MCH 28.2 MCHC 32.5 RDW 15.4 Plt Count 169 MPV 10.8 Immature Gran % (Auto) 1.1 H Neut % (Auto) 65.5 Lymph % (Auto) 17.1 L Bartholomew % (Auto) 13.7 H Eos % (Auto) 2.1 Baso % (Auto) 0.5 Lymph # (Auto) 2.1 Bartholomew # (Auto) 1.7 H Eos # (Auto) 0.3 Baso # (Auto) 0.1 Abs Immat Gran (auto) 0.14 H Absolute Neuts (auto) 8.1 Absolute Nucleated RBC 0.000 Nucleated RBC % (auto) 0.0 Smear Tech's Comments VERIFIED VBG pH 7.53 H VBG pCO2 42 VBG pO2 44 VBG HCO3 35 H VBG O2 Saturation 70.0 VBG Base Excess 12.1 Sodium 134 L Potassium 4.8 Chloride 97 Carbon Dioxide 26 Anion Gap 16 BUN 43 H Creatinine 1.55 H Estim Creat Clear Calc 43.1 Estimated GFR 43 Random Glucose 137 H Calcium 9.4 Phosphorus 4.0 Magnesium 2.8 H Albumin 2.9 L Microbiology Microbiology Results: Microbiology 02/12/24 14:34 Blood - Venous Blood Culture - Final No growth after 5 days. 02/12/24 14:34 Blood - Venous Blood Culture - Final No growth after 5 days. 02/09/24 13:28 Blood - Venous Blood Culture - Final No growth after 5 days. 02/09/24 13:28 Blood - Venous Blood Culture - Final Haemophilus influenzae Progress Note: A&P Assessment and plan (1) Failure to wean from mechanical ventilation: Status: Acute (2) Delirium: Status: Acute (3) Encephalopathy: Status: Acute (4) Atrial fibrillation: Status: Acute (5) Coronary artery disease: Status: Acute (6) Acute respiratory failure with hypoxia: Status: Acute (7) Aspiration pneumonia: Status: Acute (8) Nonrheumatic aortic (valve) stenosis: Status: Acute Plan Assessment: 83-year-old gentleman admitted with acute hypoxic respiratory failure and alteration of mental status likely secondary to aspiration event now with inability to wean from ventilatory support. Plan: Neuro: Hospital-acquired delirium/unspecified encephalopathy with poor improvement despite prolonged sedation vacation and essentially normal brain imaging. Cardiac: No acute issues. Underlying systolic congestive heart failure and AFib, chronic. Pulmonary: Acute hypoxic respiratory failure now requiring ventilatory support, with failure to wean from mechanical ventilation. Discussions of goals of care ongoing with the family. Will likely require tracheostomy/parenteral gastrostomy. ET tube exchanged over a bougie secondary to endoluminal fouling with secretions. Renal: No acute issues. Endo: No acute issues. GI: No acute issues. ID: Haemophilus bacteremia 1/2 bottles, likely a contaminant finish course of Zosyn. Heme/Onc: No acute issues. Psych: No acute issues. Miscellaneous: No acute issues. Prophylaxis: Apixaban, famotidine Diet: Tube feeds Critical care time spent: 60 minutes Quality Stroke Does the patient have a stroke diagnosis?: No VTE Prior VTE?: No VTE Risk Level:: Medical - moderate - high VTE Device Contraindication: Treatment Not Indicated VTE Drug Contraindication: N/A - Med Ordered
--- NOTE | 2024-02-21 10:13 | P.CDIM_ITS ---
PROVIDER RESPONSE TEXT: To clarify, the appropriate diagnosis supported by the clinical indicators: Acute delirium: Hospital-acquired versus worsening of underlying secondary to pulmonary aspiration QUERY TEXT: PHYSICIAN'S DOCUMENTATION REQUEST Date of Query: 02/12/2024 08:20 AM EDT Patient Name: Ramon Atkinson Admit Date: 02/09/2024 Dear Brian Jackson MD, A review of the medical record indicates additional documentation may be needed. Please review below and update the documentation accordingly. Clinical Indicators: presented to the ED on 02/09/24 with altered mental status, acting significantly more altered than base line CT of head did not show an acute bleed/infarction Sedated and on ventilator Based on the above, could you clarify if any of the following, is the most likely etiology of the con fusion/altered mental status? Encephalopathy Indicate type such as metabolic, toxic, septic, alcoholic, hypertensive, etc. Dementia Indicate type of dementia, such as Alzheimer's, senile, vascular, Lewy body, etc. Acute delirium Indicate known or suspected etiology, such as postoperative, due to narcotics or other drugs, etc. Baseline dementia Indicate type, such as Alzheimer's, senile, vascular, Lewy body, etc., and any associated behavioral disturbances (aggressive, combative, or violent behavior) Acute or subacute confusional state due to Specify known or suspected etiology Other (explain) Clinically unable to determine (explain) Thank you, Chanell Damon RN Use of terms such as suspected, likely, concern for, or probable (associated with a specific diagnosi s that is being evaluated, monitored, or treated as if it exists) are acceptable and can be coded in the inpatient se tting, when documented at the time of discharge. Please use your independent medical judgment in providing your response. THIS QUERY IS PART OF THE PERMANENT MEDICAL RECORD
--- NOTE | 2024-02-21 14:03 | HO.WOUND ---
Wound Consult: Follow up 84yr old?Male admitted to [facility] [place] on 02/09/24 - See progress notes and H&P for detailed history.? Wound consultfollow up for Upper Lip Wound, not assessed today was the Coccyx wound and Left Lower Leg wound.? Patient is intubated at the time of my consultation and remains in ICU level of care. ET Tube changed by provider and secured by Respiratory Therapist to the chin, off loading pressure from the upper lip / Maxilla - significant improvement of the erythema to the outer Maxilla - swelling remains but remains soft. Foam block applied to ET tube to aid in off loading ET Tube and lifting to prevent pulling and adding pressure to Mandible. No new topical orders needed at this time. Inpatient Wound Care Nurse will continue to follow. Upper Inner Lip remains unchanged - Etiology: ??Device related Mucosal Pressure Injury Wound Bed: full thickness wound- yellow necrotic tissue noted with various areas of dark purple tissue Drainage / Odor: yellow drainage noted no odor noted Edges: ? linear Shirley wound: ?decreased Swelling and erythema noted - No Induration, Fluctuance or Warmth noted Goals of Treatment: Off Load Pressure - Limited topical treatment given location - Frequent Mouth care to be provided Provider to consider Trach Placement Right Leg -resurfacing venous dermatitis - foam dressing in place Left Leg - venous dermatitis - partial thickness tissue loss and foam dressing in place Sacrococcygeal area Etiology: Deep Tissue Injury in Evolution Goals of Treatment: Off Load Pressure - Barrier cream and foam dressing in place. Of note the patient remains critically ill see provider notes for details. Despite pressure injury development the proper preventative measures have been in place, ADY and Specialty mattress in use, Wedges for off loading in use with frequent repositions see charting for detailed. Preventative foams and heel protectors in place to elbows and heels, in addition to barrier creams. Recommendations: 1. Turn and Reposition every 2 hours and as needed for patient comfort.? Use pillows or wedges to support off loading positions. 2. Off Load all bony prominences with use of pillows and heel boots if needed.? Apply Preventative foams where needed. ? 3. Monitor for incontinence and moisture control, use barrier creams when needed for prevention and treatment. 4. Provide adequate and supplemental nutrition.? 5. Continue low air loss mattress. 6. When applicable maintain blood glucose levels per Providers order. 7. Upper Lip - Off Load Pressure - Frequent oral care to be provided and continue to off load ET tube per Respiratory Therapist recommendations. 8. Bilateral Medel - Cleanse with NS moist gauze, Pat dry,. Apply skin prep to periwound, cover with foam dressing. Change every 3 days and PRN. 9. Sacrococcygeal - Off Load Pressure - Cleanse with PH balanced wipes, apply barrier cream and sacral foam dressing. Change every 3 days and PRN. Re-consult wound care Nurse for wound deterioration or wound changes.
--- NOTE | 2024-02-21 16:04 | MHC.CM.PN ---
EMR REVIEWED, PT REMAINS IN ICU ON VENTILATORY SUPPORT, UNABLE TO WEAN . GOALS OF CARE DISCUSSIONS CONTINUE WITH FAMILY. PT MAY NEED TRACH/PEG PLACEMENT/PLACEMENT. CM WILL CONTINUE TO FOLLOW FOR ANY CHANGE TO DC PLAN/NEEDS.
[2024-02-21] MEDS: propofoL 1,000 MG/100 ML VIAL 20.38 MG IVCONT ×2 (20:42→23:32)
[2024-02-22] VITALS (33 sets, daily range): BP systolic 105–162; BP diastolic 46–78; PULSE 71–89; RESP 16–31; TEMP 35–37.4; O2SAT 95–100; BMI 34.9
[2024-02-22] MEDS: Albumin Human 25 % 100 ML IV (01:38)
[2024-02-22] MEDS: 0.9 % Sodium Chloride Flush 10 ML SYRINGE IVFLUSH ×3 (01:38→15:04)
[2024-02-22] MEDS: propofoL 1,000 MG/100 ML VIAL 13.58 MG IVCONT (03:53)
[2024-02-22] MEDS: Levothyroxine Sodium 88 MCG TABLET PO (05:51)
[2024-02-22 05:59] LABS: VBG Base Excess 10.2 mmol/L; VBG HCO3 30 mmol/L (22-26); VBG pCO2 26 mmHg; VBG pH 7.67 (7.32-7.43); VBG pO2 53 mmHg
[2024-02-22 06:00] LABS: Venous Blood Gas Refer to POC result
[2024-02-22 06:05] LABS: MANUAL DIFF FLAG NO
[2024-02-22 06:06] LABS: Basophils Absolute Auto 0.1 X10*3/uL (0.0-0.2); Basophils Percent Auto 0.7 % (0-2); Eosinophils Absolute Auto 0.2 X10*3/uL (0.0-0.4); Eosinophils Percent Auto 2.1 % (0-4); Hematocrit 26.8 % (42.0-52.0); Hemoglobin 8.8 g/dl (14.0-18.0); Imm Gran Abs Auto 0.05 X10*3/uL (0.00-0.03); Imm Gran Pct Auto 0.7 % (0.0-0.4); Lymphocytes Absolute Auto 1.7 X10*3/uL (1.2-4.9); Lymphocytes Percent Auto 22.9 % (20-40); Mean Corpuscular HGB Conc 32.8 g/dl (31.0-36.0); Mean Corpuscular Hemoglobin 28.4 pg (27.0-33.0); Mean Corpuscular Volume 86.5 fL (80.0-98.0); Mean Platelet Volume 10.6 fL (9.4-12.4); Monocytes Percent Auto 13.1 % (2-11); Neutrophils Absolute Auto 4.5 x10*3/uL (2.0-8.3); Neutrophils Percent Auto 60.5 % (45-73); Platelet Count 165 X10*3/uL (160-400); Red Cell Distribution Width 15.6 % (11.0-16.0); White Blood Count 7.5 X10*3/uL (4.8-10.8)
[2024-02-22 06:28] LABS: Anion Gap 14 (12-20); Blood Urea Nitrogen 40 mg/dL (9-16); Calcium 9.5 mg/dL (8.4-10.2); Carbon Dioxide 25 mmol/L (22-29); Chloride 103 mmol/L (96-108); Estimated Glomerular Filt Rate 53; Glucose Random 107 mg/dL (60-115); Magnesium 2.7 mg/dL (1.6-2.6); Phosphorus 3.7 mg/dL (2.7-4.5); Potassium 4.1 mmol/L (3.3-5.1); Sodium 138 mmol/L (135-145)
[2024-02-22] MEDS: amLODIPine Besylate 10 MG TABLET PO (08:34)
[2024-02-22] MEDS: Famotidine/PF 20 MG/2 ML VIAL IVPUSH (08:35)
[2024-02-22] MEDS: Apixaban 2.5 MG TABLET PO ×2 (08:35→21:01)
[2024-02-22] MEDS: Chlorhexidine Gluc Oral Rinse 15 ML MOUTHWASH BUCCAL ×3 (08:35→21:01)
[2024-02-22] MEDS: propofoL 1,000 MG/100 ML VIAL 20.38 MG IVCONT (08:40)
--- NOTE | 2024-02-22 08:42 | P.PNCC_ITS ---
Subjective Subjective Date of Service: 02/22/24 Interval History: 83-year-old gentleman with underlying paroxysmal AFib on anticoagulation, CAD, congestive heart failure with EF was 45%, chronic renal disease stage III admitted on 02/09/2024 with alteration of mental status and acute hypoxic respiratory failure likely secondary to aspiration event requiring intubation and ventilatory support. Patient started on empiric antibiotics. CT head demonstrated no intracranial bleed. He was admitted to the intensive care unit. Patient initially extubated on 02/11/2024, but required re-intubation 02/12/2024 secondary to ongoing encephalopathy with aspiration. Now status post bronchoscopy with lavage for copious secretions on 02/15/2024. Hospital course further complicated by persistent encephalopathy/hospital-acquired delirium with inability to wean off mechanical ventilation. Failed pressor support trial on 02/21/2024 secondary to persistent encephalopathy. No events overnight. Critical Care Time (minutes): 60 Physical Exam 2 Vital Signs: Vital Signs: Last Vital Signs Temp 98.8 F 02/22/24 08:00 Pulse 81 02/22/24 08:00 Resp 20 02/22/24 08:00 BP 133/73 02/22/24 08:34 Pulse Ox 98 02/22/24 08:00 O2 Del Method Mechanical Ventil ation 02/22/24 08:00 O2 Flow Rate 30 02/20/24 20:00 FiO2 30 02/22/24 08:00 BMI result Body Mass Index 34.9 Const: General: no acute distress and other (Persistent encephalopathy despite prolonged sedation vacation) Eyes: Sclerae: sclerae normal EOM: EOMs intact bilaterally Neck: Neck: Yes no lymphadenopathy, Yes trachea midline and Yes supple Resp: Auscultation: clear to auscultation bilaterally Cardio: Rate: regular rate Rhythm: regular rhythm Heart sounds: no gallops, no murmurs and no rubs GI: Palpation (GI): Soft to palpation and Other GI palpation findings present ( Nontender) Auscultation: normal bowel sounds Extrem: General: Yes no pedal edema, No clubbing and No cyanosis Objective Data Labs 02/22/24 05:31 02/22/24 05:31 Labs: Laboratory Results - last 24 hr 02/22/24 02/22/24 05:31 05:49 WBC 7.5 RBC 3.10 L Hgb 8.8 L Hct 26.8 L MCV 86.5 MCH 28.4 MCHC 32.8 RDW 15.6 Plt Count 165 MPV 10.6 Immature Gran % (Auto) 0.7 H Neut % (Auto) 60.5 Lymph % (Auto) 22.9 [place] % (Auto) 13.1 H Eos % (Auto) 2.1 Baso % (Auto) 0.7 Lymph # (Auto) 1.7 [place] # (Auto) 1.0 Eos # (Auto) 0.2 Baso # (Auto) 0.1 Abs Immat Gran (auto) 0.05 H Absolute Neuts (auto) 4.5 Absolute Nucleated RBC 0.000 Nucleated RBC % (auto) 0.0 VBG pH 7.67 H* VBG pCO2 26 VBG pO2 53 VBG HCO3 30 H VBG O2 Saturation 87.0 VBG Base Excess 10.2 Sodium 138 Potassium 4.1 Chloride 103 Carbon Dioxide 25 Anion Gap 14 BUN 40 H Creatinine 1.30 Estim Creat Clear Calc 51.0 Estimated GFR 53 Random Glucose 107 Calcium 9.5 Phosphorus 3.7 Magnesium 2.7 H Albumin 4.0 Microbiology Microbiology Results: Microbiology 02/12/24 14:34 Blood - Venous Blood Culture - Final No growth after 5 days. 02/12/24 14:34 Blood - Venous Blood Culture - Final No growth after 5 days. 02/09/24 13:28 Blood - Venous Blood Culture - Final No growth after 5 days. 02/09/24 13:28 Blood - Venous Blood Culture - Final Haemophilus influenzae Progress Note: A&P Assessment and plan (1) Failure to wean from mechanical ventilation: Status: Acute (2) Delirium: Status: Acute (3) Encephalopathy: Status: Acute (4) Atrial fibrillation: Status: Acute (5) Coronary artery disease: Status: Acute (6) Cardiomyopathy: Status: Acute Plan Assessment: 83-year-old gentleman admitted with acute hypoxic respiratory failure and alteration of mental status likely secondary to aspiration event now with inability to wean from ventilatory support. Plan: Neuro: Hospital-acquired delirium/unspecified encephalopathy with poor improvement despite prolonged sedation vacation and essentially normal brain imaging. Cardiac: No acute issues. Underlying systolic congestive heart failure and AFib, chronic. Pulmonary: Acute hypoxic respiratory failure now requiring ventilatory support, with failure to wean from mechanical ventilation. Discussions of goals of care ongoing with the family. Will likely require tracheostomy/parenteral gastrostomy. ET tube exchanged over a bougie secondary to endoluminal fouling with secretions. Renal: No acute issues. Endo: No acute issues. GI: No acute issues. ID: Haemophilus bacteremia 1/2 bottles, likely a contaminant finished course of Zosyn. Heme/Onc: No acute issues. Psych: No acute issues. Miscellaneous: No acute issues. Prophylaxis: Apixaban, famotidine Diet: Tube feeds Critical care time spent: 60 minutes Quality Stroke Does the patient have a stroke diagnosis?: No VTE Prior VTE?: No VTE Risk Level:: Medical - moderate - high VTE Device Contraindication: Treatment Not Indicated VTE Drug Contraindication: N/A - Med Ordered
--- NOTE | 2024-02-22 10:06 | MHC.CLN ---
F/U PT REMAINS INTUBATED WITHOUT SEDATION REVIEWED LABS DISCUSSED AT ROUNDS WITH MD-TO ADD FWF PT WITH INCREASED NUTRITION NEEDS R/T PRESSURE INJURY PT RECEIVING NEPRO AT MAX GOAL RATE 40ML/HR WITH 30ML PROSOURCE BID PROVIDES 1848 TOTAL KCALS (2386KCALS WITH SEDATION; 27KCALS/KG BASED ON CMW), 108G TOTAL PROTEIN (1.5G/KG FOR WOUND HEALING), 1256ML FREE WATER FROM FORMULA WILL ADD 120ML FREE WATER FLUSHES TO PROVIDE 1616ML TOTAL FREE WATER FROM FORMULA AND FLUSHES (22ML/KG BASED ON IBW) MONITOR TOLERANCE AND LYTES
--- NOTE | 2024-02-22 10:33 | P.CDIM_ITS ---
PROVIDER RESPONSE TEXT: To clarify, the appropriate diagnosis supported by the clinical indicators: DTI pressure ulcer sacrococcygeal area QUERY TEXT: PHYSICIAN'S DOCUMENTATION REQUEST Date of Query: 02/22/2024 10:00 AM EDT Patient Name: Ramon Atkinson Admit Date: 02/09/2024 Dear Brian Jackson MD, A review of the medical record indicates additional documentation may be needed. Please review below and update the documentation accordingly. Clinical Indicators: Per Wound Note 02/20/24: sacrococcygeal area DTI Off Load Pressure - Barrier cream and foam dressing in place. Based on the above, could you please provide further information regarding the ulcer/wound: DTI pressure ulcer sacrococcygeal area Other (explain) Clinically unable to determine (explain) Thank you, Chanell Damon RN Use of terms such as suspected, likely, concern for, or probable (associated with a specific diagnosi s that is being evaluated, monitored, or treated as if it exists) are acceptable and can be coded in the inpatient se tting, when documented at the time of discharge. Please use your independent medical judgment in providing your response. THIS QUERY IS PART OF THE PERMANENT MEDICAL RECORD
--- NOTE | 2024-02-22 10:33 | P.CDIM_ITS ---
PROVIDER RESPONSE TEXT: To clarify, the appropriate diagnosis supported by the clinical indicators: pressure ulcer upper lip stage 2 QUERY TEXT: PHYSICIAN'S DOCUMENTATION REQUEST Date of Query: 02/22/2024 09:54 AM EDT Patient Name: Ramon Atkinson Admit Date: 02/09/2024 Dear Brian Jackson MD, A review of the medical record indicates additional documentation may be needed. Please review below and update the documentation accordingly. Clinical Indicators: Per Wound Note 02/21/24: Upper lip wound, ET Tube changed by provider and secured by Respiratory Therapist to the chin, off lo ading pressure from the upper lip Device related mucosal pressure injury, full thickness wound- yellow necrotic tissue noted with vario us areas of dark purple tissue Based on the above, could you please provide further information regarding the stage of the ulcer/wou nd: pressure ulcer upper lip stage 1 pressure ulcer upper lip stage 2 pressure ulcer upper lip stage 3 pressure ulcer upper lip stage 4 Other (explain) Clinically unable to determine (explain) Thank you, Chanell Damon RN Use of terms such as suspected, likely, concern for, or probable (associated with a specific diagnosi s that is being evaluated, monitored, or treated as if it exists) are acceptable and can be coded in the inpatient se tting, when documented at the time of discharge. Please use your independent medical judgment in providing your response. THIS QUERY IS PART OF THE PERMANENT MEDICAL RECORD
[2024-02-22] MEDS: propofoL 1,000 MG/100 ML VIAL 27.17 MG IVCONT ×4 (11:46→22:21)
--- NOTE | 2024-02-22 14:44 | HO.WOUND ---
Wound Consult: Follow up 84yr old?Male admitted to [facility] [place] on 02[place]09/24 - See progress notes and H&P for detailed history.? Wound consult follow up for Upper Lip Wound, not assessed today was the Coccyx wound and Left Lower Leg wound.? Patient is intubated at the time of my consultation and remains in ICU level of care. ET Tube continues to secured by Respiratory Therapist to the chin, off loading pressure from the upper lip / Maxilla - significant improvement of the erythema to the outer Maxilla - swelling remains but remains soft. Foam block applied to ET tube to aid in off loading ET Tube and lifting to prevent pulling and adding pressure to Mandible. The inside lip shows significant signs of improvement - no yellow slough is noted. the wound appears moist pink with an improving dark purple maroon base. No new topical orders needed at this time, continue offloading tube and frequent mouth care. Inpatient Wound Care Nurse will continue to follow. Upper Inner Lip Etiology: ??Device related Mucosal Pressure Injury Wound Bed: Improving full thickness wound - red moist viable tissue base of dark maroon purple tissue Drainage / Odor: no observable drainage noted Edges: ? linear [place] wound: ?decreased Swelling and erythema noted - No Induration, Fluctuance or Warmth noted Goals of Treatment: Off Load Pressure - Limited topical treatment given location - Frequent Mouth care to be provided - Provider to consider Trach Placement Not assessed today: Right Leg -resurfacing venous dermatitis - foam dressing in place Left Leg - venous dermatitis - partial thickness tissue loss and foam dressing in place Sacrococcygeal area Etiology: Deep Tissue Injury in Evolution Goals of Treatment: Off Load Pressure - Barrier cream and foam dressing in place. Of note the patient remains critically ill see provider notes for details. Despite pressure injury development the proper preventative measures have been in place, ADY and Specialty mattress in use, Wedges for off loading in use with frequent repositions see charting for detailed. Preventative foams and heel protectors in place to elbows and heels, in addition to barrier creams. Recommendations: 1. Turn and Reposition every 2 hours and as needed for patient comfort.? Use pillows or wedges to support off loading positions. 2. Off Load all bony prominences with use of pillows and heel boots if needed.? Apply Preventative foams where needed. ? 3. Monitor for incontinence and moisture control, use barrier creams when needed for prevention and treatment. 4. Provide adequate and supplemental nutrition.? 5. Continue low air loss mattress. 6. When applicable maintain blood glucose levels per Providers order. 7. Upper Lip - Off Load Pressure - Frequent oral care to be provided and continue to off load ET tube per Respiratory Therapist recommendations. 8. Bilateral Medel - Cleanse with NS moist gauze, Pat dry,. Apply skin prep to periwound, cover with foam dressing. Change every 3 days and PRN. 9. Sacrococcygeal - Off Load Pressure - Cleanse with PH balanced wipes, apply barrier cream and sacral foam dressing. Change every 3 days and PRN. Re-consult wound care Nurse for wound deterioration or wound changes.
[2024-02-23] VITALS (30 sets, daily range): BP systolic 110–162; BP diastolic 50–76; PULSE 72–83; RESP 16–20; TEMP 35–38; O2SAT 93–99; BMI 34.8
[2024-02-23] MEDS: propofoL 1,000 MG/100 ML VIAL 27.17 MG IVCONT ×8 (01:44→23:24)
[2024-02-23] MEDS: Levothyroxine Sodium 88 MCG TABLET PO (05:02)
[2024-02-23 05:03] LABS: VBG Base Excess 7.2 mmol/L; VBG HCO3 28 mmol/L (22-26); VBG pCO2 30 mmHg; VBG pH 7.58 (7.32-7.43); VBG pO2 41 mmHg
[2024-02-23 05:04] LABS: Venous Blood Gas Refer to POC result
[2024-02-23 05:07] LABS: MANUAL DIFF FLAG NO
[2024-02-23 05:09] LABS: Basophils Absolute Auto 0.1 X10*3/uL (0.0-0.2); Basophils Percent Auto 0.8 % (0-2); Eosinophils Absolute Auto 0.2 X10*3/uL (0.0-0.4); Eosinophils Percent Auto 3.4 % (0-4); Hematocrit 27.3 % (42.0-52.0); Hemoglobin 9.1 g/dl (14.0-18.0); Imm Gran Abs Auto 0.03 X10*3/uL (0.00-0.03); Imm Gran Pct Auto 0.5 % (0.0-0.4); Lymphocytes Absolute Auto 1.3 X10*3/uL (1.2-4.9); Lymphocytes Percent Auto 20.4 % (20-40); Mean Corpuscular HGB Conc 33.3 g/dl (31.0-36.0); Mean Corpuscular Hemoglobin 28.7 pg (27.0-33.0); Mean Corpuscular Volume 86.1 fL (80.0-98.0); Mean Platelet Volume 10.2 fL (9.4-12.4); Monocytes Absolute Auto 0.8 X10*3/uL (0.1-1.2); Monocytes Percent Auto 12.6 % (2-11); Neutrophils Percent Auto 62.3 % (45-73); Platelet Count 178 X10*3/uL (160-400); Red Blood Count 3.17 X10*6/uL (4.60-5.80); White Blood Count 6.4 X10*3/uL (4.8-10.8)
[2024-02-23 05:26] LABS: Albumin Level 3.7 g/dL (3.5-5.0); Anion Gap 24 (12-20); Blood Urea Nitrogen 40 mg/dL (9-16); Carbon Dioxide 18 mmol/L (22-29); Chloride 102 mmol/L (96-108); Creatinine Clr Calc Pharmacy 44.2; Estimated Glomerular Filt Rate 45; Glucose Random 113 mg/dL (60-115); Magnesium 2.7 mg/dL (1.6-2.6); Phosphorus 4.6 mg/dL (2.7-4.5); Potassium 4.6 mmol/L (3.3-5.1); Sodium 139 mmol/L (135-145)
[2024-02-23] MEDS: 0.9 % Sodium Chloride Flush 10 ML SYRINGE IVFLUSH ×4 (07:05→20:45)
[2024-02-23] MEDS: Apixaban 2.5 MG TABLET PO ×2 (08:00→20:45)
[2024-02-23] MEDS: Chlorhexidine Gluc Oral Rinse 15 ML MOUTHWASH BUCCAL ×3 (08:00→20:45)
[2024-02-23] MEDS: Famotidine/PF 20 MG/2 ML VIAL IVPUSH (08:00)
[2024-02-23] MEDS: amLODIPine Besylate 10 MG TABLET PO (08:00)
--- NOTE | 2024-02-23 09:22 | PM.CCPN ---
Subjective Subjective Date of Service: 02/23/24 Interval History: 83-year-old gentleman with underlying paroxysmal AFib on anticoagulation, CAD, congestive heart failure with EF was 45%, chronic renal disease stage III admitted on 02/09/2024 with alteration of mental status and acute hypoxic respiratory failure likely secondary to aspiration event requiring intubation and ventilatory support. Patient started on empiric antibiotics. CT head demonstrated no intracranial bleed. He was admitted to the intensive care unit. Patient initially extubated on 02/11/2024, but required re-intubation 02/12/2024 secondary to ongoing encephalopathy with aspiration. Now status post bronchoscopy with lavage for copious secretions on 02/15/2024. Hospital course further complicated by persistent encephalopathy/hospital-acquired delirium with inability to wean off mechanical ventilation. No events overnight. Critical Care Time (minutes): 60 Physical Exam Vital Signs: Vital Signs: Last Vital Signs Temp 99.3 F 02/23/24 08:00 Pulse 77 02/23/24 08:00 Resp 16 02/23/24 08:00 BP 141/67 H 02/23/24 08:00 Pulse Ox 99 02/23/24 08:00 O2 Del Method Mechanical Ventil ation 02/23/24 08:00 O2 Flow Rate 30 02/20/24 20:00 FiO2 30 02/23/24 08:00 BMI result Body Mass Index 34.8 Const: General: no acute distress and other (no arousal with sedation vacation) Eyes: Sclerae: sclerae normal EOM: EOMs intact bilaterally Neck: Neck: Yes no lymphadenopathy, Yes trachea midline and Yes supple Resp: Auscultation: clear to auscultation bilaterally Cardio: Rate: regular rate Rhythm: regular rhythm Heart sounds: no gallops, no murmurs and no rubs GI: Palpation (GI): Soft to palpation and Other GI palpation findings present ( Nontender) Auscultation: normal bowel sounds Extrem: General: Yes no pedal edema, No clubbing and No cyanosis Objective Data Labs 02/23/24 04:53 02/23/24 04:53 Labs: Laboratory Results - last 24 hr 02/23/24 02/23/24 04:51 04:53 WBC 6.4 RBC 3.17 L Hgb 9.1 L Hct 27.3 L MCV 86.1 MCH 28.7 MCHC 33.3 RDW 15.0 Plt Count 178 MPV 10.2 Immature Gran % (Auto) 0.5 H Neut % (Auto) 62.3 Lymph % (Auto) 20.4 [place] % (Auto) 12.6 H Eos % (Auto) 3.4 Baso % (Auto) 0.8 Lymph # (Auto) 1.3 [place] # (Auto) 0.8 Eos # (Auto) 0.2 Baso # (Auto) 0.1 Abs Immat Gran (auto) 0.03 Absolute Neuts (auto) 4.0 Absolute Nucleated RBC 0.000 Nucleated RBC % (auto) 0.0 VBG pH 7.58 H VBG pCO2 30 VBG pO2 41 VBG HCO3 28 H VBG O2 Saturation 68.0 VBG Base Excess 7.2 Sodium 139 Potassium 4.6 Chloride 102 Carbon Dioxide 18 L Anion Gap 24 H BUN 40 H Creatinine 1.50 H Estim Creat Clear Calc 44.2 Estimated GFR 45 Random Glucose 113 Calcium 10.0 Phosphorus 4.6 H Magnesium 2.7 H Albumin 3.7 Microbiology Microbiology Results: Microbiology 02/12/24 14:34 Blood - Venous Blood Culture - Final No growth after 5 days. 02/12/24 14:34 Blood - Venous Blood Culture - Final No growth after 5 days. 02/09/24 13:28 Blood - Venous Blood Culture - Final No growth after 5 days. 02/09/24 13:28 Blood - Venous Blood Culture - Final Haemophilus influenzae Progress Note: A&P Assessment and plan (1) Failure to wean from mechanical ventilation: Status: Acute (2) Delirium: Status: Acute (3) Encephalopathy: Status: Acute (4) Atrial fibrillation: Status: Acute (5) Coronary artery disease: Status: Acute (6) Cardiomyopathy: Status: Acute Plan Assessment: 83-year-old gentleman admitted with acute hypoxic respiratory failure and alteration of mental status likely secondary to aspiration event now with inability to wean from ventilatory support. Plan: Neuro: Hospital-acquired delirium/unspecified encephalopathy with poor improvement despite prolonged sedation vacation and essentially normal brain imaging. Cardiac: No acute issues. Underlying systolic congestive heart failure and AFib, chronic. Pulmonary: Acute hypoxic respiratory failure now requiring ventilatory support, with failure to wean from mechanical ventilation. Discussions of goals of care ongoing with the family. Will likely require tracheostomy/parenteral gastrostomy. Renal: No acute issues. Endo: No acute issues. GI: No acute issues. ID: Haemophilus bacteremia 1/2 bottles, likely a contaminant finished course of Zosyn. Heme/Onc: No acute issues. Psych: No acute issues. Miscellaneous: No acute issues. Prophylaxis: Apixaban, famotidine Diet: Tube feeds Critical care time spent: 60 minutes Quality Stroke Does the patient have a stroke diagnosis?: No VTE Prior VTE?: No VTE Risk Level:: Medical - moderate - high VTE Device Contraindication: Treatment Not Indicated VTE Drug Contraindication: N/A - Med Ordered
--- NOTE | 2024-02-23 09:44 | MHC.CLN ---
F/U PT REMAINS INTUBATED AND SEDATED REVIEWED LABS DISCUSSED AT ROUNDS WITH PT RECEIVING NEPRO AT MAX GOAL RATE 40ML/HR WITH 30ML PROSOURCE BID AND 120ML FREE WATER FLUSHES Q 8 HRS PROVIDES 1848 TOTAL KCALS (2565KCALS WITH SEDATION; 29KCALS/KG BASED ON CMW), 108G TOTAL PROTEIN (1.5G/KG FOR WOUND HEALING), 1616ML TOTAL FREE WATER FROM FORMULA AND FLUSHES (22ML/KG BASED ON IBW) MONITOR TOLERANCE AND LYTES
--- NOTE | 2024-02-23 09:47 | MHC.CM.PN ---
Addendum entered by Mary Orellana 02/23/24 10:27: CM SPOKE WITH DAUGHTER/HCP MICHELLE WITH REQUEST FOR MOST RECENT COPY OF HCP NAMING HER. DAUGHTER WILL BRING IN COPY FOR PT CHART. Original Note: EMR REVIEWED AND PER MD ROUNDS, PT REMAINS IN ICU ON VENTILATORY SUPPORT. PER FAMILY DISCUSSION ON 02/21, FAMILY WILL NEED WEEKEND TO SPEAK WITH OTHER FAMILY MEMBERS REGARDING POSSIBILITY OF TRACH/PEG PLACEMENT. CM WILL DO A REFERRAL TO [facility] SHOULD THIS BE THE CASE. CM WILL CONTINUE TO FOLLOW FOR PLAN.
--- NOTE | 2024-02-23 13:56 | HO.THORCON_ITS ---
History of Present Illness Consult details Consult date: 02/23/24 Narrative: Patient is an unfortunate 84-year-old male with a plethora of medical problems including aspiration pneumonia and ventilatory dependence. Consult for thoracic surgery was undertaken for tracheostomy tube placement and PEG placement. Chart was reviewed and patient evaluated. Patient has a plethora of comorbidities. He is on anticoagulation for his cardiac dysrhythmic issues PMFSH Past Medical History Medical History (Updated 02/21/24 @ 10:07 by Brian Jackson MD) Atherosclerotic cardiovascular disease PAF (paroxysmal atrial fibrillation) NSTEMI (non-ST elevated myocardial infarction) Chronic renal disease, stage 3, moderately decreased glomerular filtration rate (GFR) between 30-59 mL/min/1.73 square meter Chest pain Heart failure Thyroid disease GERD (gastroesophageal reflux disease) On anticoagulant therapy COVID-19 vaccine series completed Symptomatic cholelithiasis HTN (hypertension) Hyperlipidemia Atrial fibrillation Sleep apnea Elevated PSA Facet arthropathy, cervical BPH loc w urin obs/LUTS Family History Family History Unknown No problems noted. Surgical History Surgical History S/P laparoscopic cholecystectomy Hx of cataract extraction History of total replacement of both hip joints Hx of cystoscopy H/O colonoscopy History of surgery Social History Social History Household Members: Unknown / Unable to assess Housing: Unknown / Unable to assess Are you a primary daycare worker to a significant other at home: No Alcohol intake: never Comment: bilateral wrist restraints for airway/line safety...propofol drip Patient Tobacco Use Status: Tobacco use Unknown Advance Directives Date on File: 07/08/22 service: No Current occupational status: retired Meds Allergies Allergy/AdvReac Type Severity Reaction Status Date / Time ibuprofen [IBUPROFEN] Allergy Intermediate HIVES Verified 02/09/24 13:22 hydromorphone [From DILAUDID] AdvReac Intermediate ILEUS Verified 02/09/24 13:22 procaine [From Novocain] AdvReac Intermediate has no Verified 02/09/24 13:22 numbing effect-states monocain works narcotic pain meds AdvReac Intermediate does not Uncoded 05/11/23 15:08 relieve pain per patient Active Medications: Current Medications Acetaminophen (Acetaminophen 325 Mg Tablet) 975 mg PO Q6H PRN PRN Reason: Fever >100.4 Amlodipine Besylate (Amlodipine Besylate 10 Mg Tablet) 10 mg PO DAILY [facility]; Protocol Last Admin: 02/23/24 08:00 Dose: 10 mg Apixaban (Apixaban 2.5 Mg Tablet) 2.5 mg PO BID [facility] Last Admin: 02/23/24 08:00 Dose: 2.5 mg Chlorhexidine Gluconate (Chlorhexidine Gluc Oral Rinse 15 Ml Mouthwash) 15 ml BUCCAL TID [facility] Last Admin: 02/23/24 08:00 Dose: 15 ml Famotidine (Famotidine/Pf 20 Mg/2 Ml Vial) 20 mg IVPUSH DAILY [facility] Last Admin: 02/23/24 08:00 Dose: 20 mg Propofol (Diprivan) 1,000 mg in 100 mls @ 0 mls/hr IVCONT .Q0M [facility]; Protocol Last Admin: 02/23/24 10:36 Dose: 40 mcg/kg/min, 27.17 mls/hr Levothyroxine Sodium (Levothyroxine Sodium 88 Mcg Tablet) 88 mcg PO DAILY@0600 [facility] Last Admin: 02/23/24 05:02 Dose: 88 mcg Sodium Chloride (0.9 % Sodium Chloride Flush 10 Ml Syringe) 10 ml IVFLUSH QSHIFT [facility] Last Admin: 02/23/24 07:05 Dose: 10 ml Home Medications ?Medication ?Instructions ?Recorded ?Confirmed ?Last Taken ?Type levothyroxine 88 mcg tablet 88 mcg PO DAILY 11/12/20 02/09/24 07/07/22 History amlodipine 2.5 mg tablet 2.5 mg PO DAILY 02/15/22 02/09/24 07/07/22 History apixaban 2.5 mg tablet (Eliquis) 2.5 mg PO BID 05/11/23 02/09/24 Unknown History atorvastatin 80 mg tablet 80 mg PO DAILY 05/11/23 02/09/24 Unknown History oxybutynin chloride 10 mg 10 mg PO DAILY 05/11/23 02/09/24 Unknown History tablet,extended release 24 hr pantoprazole 40 mg tablet,delayed 40 mg PO DAILY 05/11/23 02/09/24 Unknown History release amiodarone 200 mg tablet 100 mg PO DAILY 08/03/23 02/09/24 Unknown History Physical Exam 2 Vital Signs: Vital Signs: Last Vital Signs Temp 99.3 F 02/23/24 13:00 Pulse 82 02/23/24 13:00 Resp 16 02/23/24 13:00 BP 131/62 02/23/24 13:00 Pulse Ox 93 02/23/24 13:00 O2 Del Method Mechanical Ventil ation 02/23/24 13:00 O2 Flow Rate 30 02/20/24 20:00 FiO2 30 02/23/24 13:00 BMI result Body Mass Index 34.8 Const: Other: Patient on ventilator, sedated Chest: Other: Chest breath sounds bilateral GI: Other: Abdomen benign. Laparoscopic PEG gallbladder scars Results Labs 02/26/24 05:06 02/26/24 05:06 Labs: Abnormal lab results 02/23/24 02/23/24 Range/Units 04:51 04:53 RBC 3.17 L (4.60-5.80) X10*6/uL Hgb 9.1 L (14.0-18.0) g/dl Hct 27.3 L (42.0-52.0) % Immature Gran % (Auto) 0.5 H (0.0-0.4) % [place] % (Auto) 12.6 H (2-11) % VBG pH 7.58 H (7.32-7.43) VBG HCO3 28 H (22-26) mmol/L Carbon Dioxide 18 L (22-29) mmol/L Anion Gap 24 H (12-20) BUN 40 H (9-16) mg/dL Creatinine 1.50 H (0.5-1.4) mg/dL Phosphorus 4.6 H (2.7-4.5) mg/dL Magnesium 2.7 H (1.6-2.6) mg/dL Short CBC 02/23/24 Range/Units 04:53 WBC 6.4 (4.8-10.8) X10*3/uL Hgb 9.1 L (14.0-18.0) g/dl Hct 27.3 L (42.0-52.0) % Plt Count 178 (160-400) X10*3/uL BMP 02/23/24 04:53 Sodium 139 Potassium 4.6 Chloride 102 Carbon Dioxide 18 L BUN 40 H Creatinine 1.50 H Calcium 10.0 Liver Function 02/23/24 Range/Units 04:53 Albumin 3.7 (3.5-5.0) g/dL Urine 02/09/24 Range/Units 13:46 Urine Color Yellow Urine Appearance Clear Urine pH 6.5 (5.0-9.0) Ur Specific [place] 1.015 (1.005-1.025) Urine Protein 300 (3+) H (Neg-Trace) mg/dL Urine Glucose (UA) Negative (Negative) mg/dL All other labs normal. Assessment and Plan (1) Failure to wean from mechanical ventilation: Status: Acute (2) Aspiration pneumonia: Status: Acute Plan Tentatively scheduled for tracheostomy and PEG tube placement on Monday a.m. anticoagulation will be held starting tomorrow as well as NPO Monday evening. To contact family for consent Procedures Date of Service Date of Service: 02/26/24
--- NOTE | 2024-02-23 14:13 | PC.NURSE ---
Dr Camacho at bedside - plan for trach and peg placement on Monday 02/26. VO Dr Camacho - last dose of Eliquis to be 02/23 0900 and NPO 02/26 0000.
[2024-02-24] VITALS (31 sets, daily range): BP systolic 94–147; BP diastolic 43–68; PULSE 62–81; RESP 16–23; TEMP 34.8–37.4; O2SAT 91–99; BMI 36.2
[2024-02-24] MEDS: propofoL 1,000 MG/100 ML VIAL 27.17 MG IVCONT ×7 (02:54→22:51)
[2024-02-24 05:28] LABS: VBG Base Excess 6.2 mmol/L; VBG HCO3 27 mmol/L (22-26); VBG pCO2 30 mmHg; VBG pH 7.57 (7.32-7.43); VBG pO2 44 mmHg
[2024-02-24 05:28] LABS: MANUAL DIFF FLAG NO
[2024-02-24 05:31] LABS: Basophils Absolute Auto 0.1 X10*3/uL (0.0-0.2); Basophils Percent Auto 0.8 % (0-2); Eosinophils Absolute Auto 0.2 X10*3/uL (0.0-0.4); Eosinophils Percent Auto 3.4 % (0-4); Hematocrit 28.2 % (42.0-52.0); Hemoglobin 9.2 g/dl (14.0-18.0); Imm Gran Abs Auto 0.04 X10*3/uL (0.00-0.03); Imm Gran Pct Auto 0.6 % (0.0-0.4); Lymphocytes Absolute Auto 1.6 X10*3/uL (1.2-4.9); Mean Corpuscular HGB Conc 32.6 g/dl (31.0-36.0); Mean Corpuscular Hemoglobin 28.1 pg (27.0-33.0); Mean Corpuscular Volume 86.2 fL (80.0-98.0); Monocytes Absolute Auto 0.8 X10*3/uL (0.1-1.2); Monocytes Percent Auto 12.5 % (2-11); Neutrophils Absolute Auto 3.6 x10*3/uL (2.0-8.3); Neutrophils Percent Auto 57.7 % (45-73); Platelet Count 203 X10*3/uL (160-400); Red Blood Count 3.27 X10*6/uL (4.60-5.80); Red Cell Distribution Width 14.9 % (11.0-16.0); White Blood Count 6.2 X10*3/uL (4.8-10.8)
[2024-02-24 05:34] LABS: Venous Blood Gas Refer to POC result
[2024-02-24 05:54] LABS: Albumin Level 3.4 g/dL (3.5-5.0); Anion Gap 16 (12-20); Blood Urea Nitrogen 40 mg/dL (9-16); Calcium 9.8 mg/dL (8.4-10.2); Carbon Dioxide 23 mmol/L (22-29); Chloride 103 mmol/L (96-108); Creatinine Clr Calc Pharmacy 47.5; Estimated Glomerular Filt Rate 47; Glucose Random 113 mg/dL (60-115); Magnesium 2.6 mg/dL (1.6-2.6); Phosphorus 4.8 mg/dL (2.7-4.5); Potassium 4.2 mmol/L (3.3-5.1); Sodium 138 mmol/L (135-145)
[2024-02-24] MEDS: Levothyroxine Sodium 88 MCG TABLET PO (05:58)
[2024-02-24] MEDS: 0.9 % Sodium Chloride Flush 10 ML SYRINGE IVFLUSH ×3 (07:47→22:52)
[2024-02-24] MEDS: amLODIPine Besylate 10 MG TABLET PO (07:48)
[2024-02-24] MEDS: Chlorhexidine Gluc Oral Rinse 15 ML MOUTHWASH BUCCAL ×3 (07:48→20:41)
[2024-02-24] MEDS: Famotidine/PF 20 MG/2 ML VIAL IVPUSH (07:48)
[2024-02-24] MEDS: Apixaban 2.5 MG TABLET PO (07:48)
[2024-02-24] MEDS: Albumin Human 25 % 100 ML IV ×2 (07:50→13:00)
--- NOTE | 2024-02-24 09:55 | PM.CCPN ---
Subjective Subjective Date of Service: 02/24/24 Interval History: 83-year-old gentleman with underlying paroxysmal AFib on anticoagulation, CAD, congestive heart failure with EF was 45%, chronic renal disease stage III admitted on 02/09/2024 with alteration of mental status and acute hypoxic respiratory failure likely secondary to aspiration event requiring intubation and ventilatory support. Patient started on empiric antibiotics. CT head demonstrated no intracranial bleed. He was admitted to the intensive care unit. Patient initially extubated on 02/11/2024, but required re-intubation 02/12/2024 secondary to ongoing encephalopathy with aspiration. Now status post bronchoscopy with lavage for copious secretions on 02/15/2024. Hospital course further complicated by persistent encephalopathy/hospital-acquired delirium with inability to wean off mechanical ventilation. Now planned for tracheostomy/gastrostomy. No events overnight. Critical Care Time (minutes): 60 Physical Exam Vital Signs: Vital Signs: Last Vital Signs Temp 98.1 F 02/24/24 09:00 Pulse 73 02/24/24 09:00 Resp 20 02/24/24 09:00 BP 145/66 H 02/24/24 09:00 Pulse Ox 95 02/24/24 09:00 O2 Del Method Mechanical Ventil ation 02/24/24 09:00 O2 Flow Rate 30 02/20/24 20:00 FiO2 30 02/24/24 09:00 BMI result Body Mass Index 36.2 Const: General: no acute distress and other (Encephalopathic) Eyes: Sclerae: sclerae normal EOM: EOMs intact bilaterally Neck: Neck: Yes no lymphadenopathy, Yes trachea midline and Yes supple Resp: Auscultation: clear to auscultation bilaterally Cardio: Rate: regular rate Rhythm: regular rhythm Heart sounds: no gallops, no murmurs and no rubs GI: Palpation (GI): Soft to palpation and Other GI palpation findings present ( Nontender) Auscultation: normal bowel sounds Extrem: General: No clubbing, No cyanosis and Yes edema (Trace bilateral) Objective Data Labs 02/24/24 05:08 02/24/24 05:08 Labs: Laboratory Results - last 24 hr 02/24/24 02/24/24 05:08 05:17 WBC 6.2 RBC 3.27 L Hgb 9.2 L Hct 28.2 L MCV 86.2 MCH 28.1 MCHC 32.6 RDW 14.9 Plt Count 203 MPV 10.0 Immature Gran % (Auto) 0.6 H Neut % (Auto) 57.7 Lymph % (Auto) 25.0 [place] % (Auto) 12.5 H Eos % (Auto) 3.4 Baso % (Auto) 0.8 Lymph # (Auto) 1.6 [place] # (Auto) 0.8 Eos # (Auto) 0.2 Baso # (Auto) 0.1 Abs Immat Gran (auto) 0.04 H Absolute Neuts (auto) 3.6 Absolute Nucleated RBC 0.000 Nucleated RBC % (auto) 0.0 VBG pH 7.57 H VBG pCO2 30 VBG pO2 44 VBG HCO3 27 H VBG O2 Saturation 72.0 VBG Base Excess 6.2 Sodium 138 Potassium 4.2 Chloride 103 Carbon Dioxide 23 Anion Gap 16 BUN 40 H Creatinine 1.42 H Estim Creat Clear Calc 47.5 Estimated GFR 47 Random Glucose 113 Calcium 9.8 Phosphorus 4.8 H Magnesium 2.6 Albumin 3.4 L Microbiology Microbiology Results: Microbiology 02/12/24 14:34 Blood - Venous Blood Culture - Final No growth after 5 days. 02/12/24 14:34 Blood - Venous Blood Culture - Final No growth after 5 days. 02/09/24 13:28 Blood - Venous Blood Culture - Final No growth after 5 days. 02/09/24 13:28 Blood - Venous Blood Culture - Final Haemophilus influenzae Progress Note: A&P Assessment and plan (1) Failure to wean from mechanical ventilation: Status: Acute (2) Delirium: Status: Acute (3) Encephalopathy: Status: Acute (4) Atrial fibrillation: Status: Acute (5) Coronary artery disease: Status: Acute (6) Acute respiratory failure with hypoxia: Status: Acute (7) Cardiomyopathy: Status: Acute Plan Assessment: 83-year-old gentleman admitted with acute hypoxic respiratory failure and alteration of mental status likely secondary to aspiration event now with inability to wean from ventilatory support. Plan: Neuro: Hospital-acquired delirium/unspecified encephalopathy with poor improvement despite prolonged sedation vacation and essentially normal brain imaging. Cardiac: No acute issues. Underlying systolic congestive heart failure and AFib, chronic. Pulmonary: Acute hypoxic respiratory failure now requiring ventilatory support, with failure to wean from mechanical ventilation. Planned for tracheostomy/parenteral gastrostomy on 02/27/2024. Renal: No acute issues. Endo: No acute issues. GI: No acute issues. ID: Haemophilus bacteremia 1/2 bottles, likely a contaminant finished course of Zosyn. Heme/Onc: No acute issues. Psych: No acute issues. Miscellaneous: No acute issues. Prophylaxis: Pneumatic compression, famotidine Diet: Tube feeds Critical care time spent: 60 minutes Quality Stroke Does the patient have a stroke diagnosis?: No VTE Prior VTE?: No VTE Risk Level:: Medical - moderate - high VTE Device Contraindication: Treatment Not Indicated VTE Drug Contraindication: N/A - Med Ordered
[2024-02-25] VITALS (32 sets, daily range): BP systolic 102–150; BP diastolic 47–70; PULSE 75–84; RESP 16–25; TEMP 34.8–36.9; O2SAT 90–100; BMI 36.5
[2024-02-25] MEDS: propofoL 1,000 MG/100 ML VIAL 27.17 MG IVCONT ×7 (01:45→22:36)
[2024-02-25] MEDS: Levothyroxine Sodium 88 MCG TABLET PO (05:14)
[2024-02-25 06:19] LABS: MANUAL DIFF FLAG NO
[2024-02-25 06:21] LABS: Venous Blood Gas Refer to POC result
[2024-02-25 06:23] LABS: Basophils Absolute Auto 0.1 X10*3/uL (0.0-0.2); Eosinophils Absolute Auto 0.2 X10*3/uL (0.0-0.4); Eosinophils Percent Auto 3.2 % (0-4); Hematocrit 29.6 % (42.0-52.0); Hemoglobin 9.7 g/dl (14.0-18.0); Imm Gran Abs Auto 0.03 X10*3/uL (0.00-0.03); Imm Gran Pct Auto 0.5 % (0.0-0.4); Lymphocytes Absolute Auto 1.3 X10*3/uL (1.2-4.9); Lymphocytes Percent Auto 20.1 % (20-40); Mean Corpuscular HGB Conc 32.8 g/dl (31.0-36.0); Mean Corpuscular Hemoglobin 28.5 pg (27.0-33.0); Mean Corpuscular Volume 87.1 fL (80.0-98.0); Mean Platelet Volume 10.1 fL (9.4-12.4); Monocytes Absolute Auto 0.7 X10*3/uL (0.1-1.2); Monocytes Percent Auto 11.1 % (2-11); Neutrophils Percent Auto 64.1 % (45-73); Platelet Count 220 X10*3/uL (160-400); Red Cell Distribution Width 14.7 % (11.0-16.0); White Blood Count 6.3 X10*3/uL (4.8-10.8)
[2024-02-25 06:28] LABS: VBG HCO3 25 mmol/L (22-26); VBG pCO2 29 mmHg; VBG pH 7.54 (7.32-7.43); VBG pO2 67 mmHg
[2024-02-25 06:47] LABS: Albumin Level 3.9 g/dL (3.5-5.0); Anion Gap 14 (12-20); Blood Urea Nitrogen 40 mg/dL (9-16); Calcium 10.1 mg/dL (8.4-10.2); Carbon Dioxide 25 mmol/L (22-29); Chloride 104 mmol/L (96-108); Creatinine Clr Calc Pharmacy 56.5; Estimated Glomerular Filt Rate 58; Glucose Random 120 mg/dL (60-115); Magnesium 2.3 mg/dL (1.6-2.6); Phosphorus 4.6 mg/dL (2.7-4.5); Potassium 4.4 mmol/L (3.3-5.1); Sodium 139 mmol/L (135-145)
[2024-02-25] MEDS: Chlorhexidine Gluc Oral Rinse 15 ML MOUTHWASH BUCCAL ×3 (07:51→20:27)
[2024-02-25] MEDS: amLODIPine Besylate 10 MG TABLET PO (07:51)
[2024-02-25] MEDS: Famotidine/PF 20 MG/2 ML VIAL IVPUSH (07:51)
[2024-02-25] MEDS: 0.9 % Sodium Chloride Flush 10 ML SYRINGE IVFLUSH ×2 (07:51→16:36)
--- NOTE | 2024-02-25 10:30 | PM.CCPN ---
Subjective Subjective Date of Service: 02/25/24 Interval History: 83-year-old gentleman with underlying paroxysmal AFib on anticoagulation, CAD, congestive heart failure with EF was 45%, chronic renal disease stage III admitted on 02/09/2024 with alteration of mental status and acute hypoxic respiratory failure likely secondary to aspiration event requiring intubation and ventilatory support. Patient started on empiric antibiotics. CT head demonstrated no intracranial bleed. He was admitted to the intensive care unit. Patient initially extubated on 02/11/2024, but required re-intubation 02/12/2024 secondary to ongoing encephalopathy with aspiration. Now status post bronchoscopy with lavage for copious secretions on 02/15/2024. Hospital course further complicated by persistent encephalopathy/hospital-acquired delirium with inability to wean off mechanical ventilation. Now planned for tracheostomy/gastrostomy. No events overnight. Critical Care Time (minutes): 60 Physical Exam Vital Signs: Vital Signs: Last Vital Signs Temp 98.1 F 02/25/24 09:00 Pulse 83 02/25/24 09:00 Resp 20 02/25/24 09:00 BP 134/64 02/25/24 09:00 Pulse Ox 92 02/25/24 09:00 O2 Del Method Mechanical Ventil ation 02/25/24 09:00 O2 Flow Rate 30 02/20/24 20:00 FiO2 30 02/25/24 09:00 BMI result Body Mass Index 36.5 Const: General: no acute distress and other (Encephalopathic) Eyes: Sclerae: sclerae normal EOM: EOMs intact bilaterally Neck: Neck: Yes no lymphadenopathy, Yes trachea midline and Yes supple Resp: Auscultation: clear to auscultation bilaterally Cardio: Rate: regular rate Rhythm: regular rhythm Heart sounds: no gallops, no murmurs and no rubs GI: Palpation (GI): Soft to palpation and Other GI palpation findings present ( Nontender) Auscultation: normal bowel sounds Extrem: General: No clubbing, No cyanosis and Yes edema (Trace bilateral) Objective Data Labs 02/25/24 06:14 02/25/24 06:15 Labs: Laboratory Results - last 24 hr 02/25/24 02/25/24 02/25/24 06:14 06:15 06:19 WBC 6.3 RBC 3.40 L Hgb 9.7 L Hct 29.6 L MCV 87.1 MCH 28.5 MCHC 32.8 RDW 14.7 Plt Count 220 MPV 10.1 Immature Gran % (Auto) 0.5 H Neut % (Auto) 64.1 Lymph % (Auto) 20.1 [place] % (Auto) 11.1 H Eos % (Auto) 3.2 Baso % (Auto) 1.0 Lymph # (Auto) 1.3 [place] # (Auto) 0.7 Eos # (Auto) 0.2 Baso # (Auto) 0.1 Abs Immat Gran (auto) 0.03 Absolute Neuts (auto) 4.0 Absolute Nucleated RBC 0.000 Nucleated RBC % (auto) 0.0 VBG pH 7.54 H VBG pCO2 29 VBG pO2 67 VBG HCO3 25 VBG O2 Saturation 95.0 VBG Base Excess 4.0 Sodium 139 Potassium 4.4 Chloride 104 Carbon Dioxide 25 Anion Gap 14 BUN 40 H Creatinine 1.20 Estim Creat Clear Calc 56.5 Estimated GFR 58 Random Glucose 120 H Calcium 10.1 Phosphorus 4.6 H Magnesium 2.3 Albumin 3.9 Microbiology Microbiology Results: Microbiology 02/12/24 14:34 Blood - Venous Blood Culture - Final No growth after 5 days. 02/12/24 14:34 Blood - Venous Blood Culture - Final No growth after 5 days. 02/09/24 13:28 Blood - Venous Blood Culture - Final No growth after 5 days. 02/09/24 13:28 Blood - Venous Blood Culture - Final Haemophilus influenzae Progress Note: A&P Assessment and plan (1) Failure to wean from mechanical ventilation: Status: Acute (2) Encephalopathy: Status: Acute (3) Delirium: Status: Acute (4) Atrial fibrillation: Status: Acute (5) Coronary artery disease: Status: Acute (6) Acute respiratory failure with hypoxia: Status: Acute (7) Cardiomyopathy: Status: Acute Plan Assessment: 83-year-old gentleman admitted with acute hypoxic respiratory failure and alteration of mental status likely secondary to aspiration event now with inability to wean from ventilatory support. Plan: Neuro: Hospital-acquired delirium/unspecified encephalopathy with poor improvement despite prolonged sedation vacation and essentially normal brain imaging. Cardiac: No acute issues. Underlying systolic congestive heart failure and AFib, chronic. Pulmonary: Acute hypoxic respiratory failure now requiring ventilatory support, with failure to wean from mechanical ventilation. Planned for tracheostomy/parenteral gastrostomy on 02/27/2024. Renal: No acute issues. Endo: No acute issues. GI: No acute issues. ID: Haemophilus bacteremia 1/2 bottles, likely a contaminant finished course of Zosyn. Heme/Onc: No acute issues. Psych: No acute issues. Miscellaneous: No acute issues. Prophylaxis: Pneumatic compression, famotidine Diet: Tube feeds Critical care time spent: 60 minutes Quality Stroke Does the patient have a stroke diagnosis?: No VTE Prior VTE?: No VTE Risk Level:: Medical - moderate - high VTE Device Contraindication: Treatment Not Indicated VTE Drug Contraindication: N/A - Med Ordered
--- NOTE | 2024-02-25 19:14 | HO.SKINPHOTO ---
Location: Category: Stage: Length: Width: Depth: cm Location: Category: Stage: Length: Width: Depth: cm Location: Category: Stage: Length: Width: Depth: cm Location: Category: Stage: Length: Width: Depth: cm Location: Category: Stage: Length: Width: Depth: cm Location: Category: Stage: Length: Width: Depth: cm
[2024-02-26] VITALS (30 sets, daily range): BP systolic 99–143; BP diastolic 48–74; PULSE 74–87; RESP 16–25; TEMP 34.9–37.3; O2SAT 93–99; BMI 35.2
[2024-02-26] MEDS: 0.9 % Sodium Chloride Flush 10 ML SYRINGE IVFLUSH ×3 (00:20→14:47)
[2024-02-26] MEDS: propofoL 1,000 MG/100 ML VIAL 27.17 MG IVCONT ×7 (01:30→21:35)
[2024-02-26] MEDS: Levothyroxine Sodium 88 MCG TABLET PO (05:01)
[2024-02-26 05:21] LABS: VBG Base Excess 2.9 mmol/L; VBG HCO3 25 mmol/L (22-26); VBG pCO2 33 mmHg; VBG pH 7.48 (7.32-7.43); VBG pO2 44 mmHg
[2024-02-26 05:23] LABS: Venous Blood Gas Refer to POC result
[2024-02-26 05:30] LABS: MANUAL DIFF FLAG NO
[2024-02-26 05:36] LABS: Basophils Absolute Auto 0.1 X10*3/uL (0.0-0.2); Basophils Percent Auto 0.7 % (0-2); Eosinophils Absolute Auto 0.2 X10*3/uL (0.0-0.4); Eosinophils Percent Auto 2.1 % (0-4); Hemoglobin 10.6 g/dl (14.0-18.0); Imm Gran Abs Auto 0.05 X10*3/uL (0.00-0.03); Imm Gran Pct Auto 0.7 % (0.0-0.4); Lymphocytes Absolute Auto 1.1 X10*3/uL (1.2-4.9); Lymphocytes Percent Auto 15.9 % (20-40); Mean Corpuscular HGB Conc 35.3 g/dl (31.0-36.0); Mean Corpuscular Hemoglobin 31.2 pg (27.0-33.0); Mean Corpuscular Volume 88.2 fL (80.0-98.0); Monocytes Absolute Auto 0.8 X10*3/uL (0.1-1.2); Neutrophils Absolute Auto 4.9 x10*3/uL (2.0-8.3); Neutrophils Percent Auto 69.6 % (45-73); Platelet Count 216 X10*3/uL (160-400); Red Cell Distribution Width 15.1 % (11.0-16.0); White Blood Count 7.1 X10*3/uL (4.8-10.8)
[2024-02-26 05:51] LABS: Albumin Level 3.7 g/dL (3.5-5.0); Anion Gap 17 (12-20); Blood Urea Nitrogen 38 mg/dL (9-16); Calcium 10.1 mg/dL (8.4-10.2); Carbon Dioxide 21 mmol/L (22-29); Chloride 99 mmol/L (96-108); Creatinine Clr Calc Pharmacy 59.5; Estimated Glomerular Filt Rate > 60; Glucose Random 106 mg/dL (60-115); Magnesium 2.4 mg/dL (1.6-2.6); Phosphorus 4.1 mg/dL (2.7-4.5); Potassium 4.3 mmol/L (3.3-5.1); Sodium 133 mmol/L (135-145)
[2024-02-26] MEDS: Chlorhexidine Gluc Oral Rinse 15 ML MOUTHWASH BUCCAL ×3 (08:00→21:36)
[2024-02-26] MEDS: Famotidine/PF 20 MG/2 ML VIAL IVPUSH (08:00)
[2024-02-26] MEDS: amLODIPine Besylate 10 MG TABLET PO (08:01)
--- NOTE | 2024-02-26 08:37 | PM.EVENT ---
Event Note Date of Service: 02/26/24 Event Note: 84M with multiple medical problems including CHF, CAD, atrial fibrillation admitted in the ICU for altered mental status likely due to aspiration and respiratory failure Has been intubated and deemed to be an weanable from the ventilator We have been consulted for PEG tube placement Abdomen is soft with no obvious surgical scars in the left upper quadrant He has a history of laparoscopic cholecystectomy CT scan of abdomen from June, shows good window access from the upper abdomen to the anterior stomach wall I explained procedure of PEG tube placement to ruben Nation [phone] I reviewed the risks including but not limited to bleeding, infections, injury to other organs including bowel, tube dislodgement, as well as the benefits and alternatives She has given consent Tracheostomy to be done by Dr. Camacho Time Spent With Patient Time: Total time managing care of this patient today ____ minutes.
[2024-02-26] MEDS: Furosemide 20 MG/2 ML VIAL IVPUSH (09:15)
[2024-02-26] MEDS: Lactulose 20 GM/30 ML SOLUTION 30 GM PO ×2 (09:18→21:51)
--- NOTE | 2024-02-26 10:10 | MHC.CLN ---
F/U PT REMAINS INTUBATED AND SEDATED REVIEWED LABS DISCUSSED AT ROUNDS WITH PT RECEIVING NEPRO AT MAX GOAL RATE 40ML/HR WITH 30ML PROSOURCE BID AND 120ML FREE WATER FLUSHES Q 8 HRS PROVIDES 1848 TOTAL KCALS (2565KCALS WITH SEDATION; 29KCALS/KG BASED ON CMW), 108G TOTAL PROTEIN (1.5G/KG FOR WOUND HEALING), 1616ML TOTAL FREE WATER FROM FORMULA AND FLUSHES (22ML/KG BASED ON IBW) CAN CONSIDER D/C FREE WATER FLUSHES R/T LOW SERUM NA MONITOR TOLERANCE AND LYTES
--- NOTE | 2024-02-26 10:15 | P.PNCC_ITS ---
Subjective Subjective Date of Service: 02/26/24 Interval History: 83-year-old gentleman with underlying paroxysmal AFib on anticoagulation, CAD, congestive heart failure with EF was 45%, chronic renal disease stage III admitted on 02/09/2024 with alteration of mental status and acute hypoxic respiratory failure likely secondary to aspiration event requiring intubation and ventilatory support. Patient started on empiric antibiotics. CT head demonstrated no intracranial bleed. He was admitted to the intensive care unit. Patient initially extubated on 02/11/2024, but required re-intubation 02/12/2024 secondary to ongoing encephalopathy with aspiration. Now status post bronchoscopy with lavage for copious secretions on 02/15/2024. Hospital course further complicated by persistent encephalopathy/hospital-acquired delirium with inability to wean off mechanical ventilation. Now planned for tracheostomy/gastrostomy. No events overnight. Critical Care Time (minutes): 60 Physical Exam 2 Vital Signs: Vital Signs: Last Vital Signs Temp 97.5 F 02/26/24 10:00 Pulse 78 02/26/24 10:00 Resp 17 02/26/24 10:00 BP 110/56 L 02/26/24 10:00 Pulse Ox 98 02/26/24 10:00 O2 Del Method Mechanical Ventil ation 02/26/24 10:00 O2 Flow Rate 30 02/20/24 20:00 FiO2 30 02/26/24 10:00 BMI result Body Mass Index 35.2 Const: General: no acute distress and other (Encephalopathic) Eyes: Sclerae: sclerae normal EOM: EOMs intact bilaterally Neck: Neck: Yes no lymphadenopathy, Yes trachea midline and Yes supple Resp: Auscultation: clear to auscultation bilaterally Cardio: Rate: regular rate Rhythm: regular rhythm Heart sounds: no gallops, no murmurs and no rubs GI: Palpation (GI): Soft to palpation and Other GI palpation findings present ( Nontender) Auscultation: normal bowel sounds Extrem: General: No clubbing, No cyanosis and Yes edema (1+ bilateral) Objective Data Labs 02/26/24 05:06 02/26/24 05:06 Labs: Laboratory Results - last 24 hr 02/26/24 02/26/24 05:06 05:11 WBC 7.1 RBC 3.40 L Hgb 10.6 L Hct 30.0 L MCV 88.2 MCH 31.2 MCHC 35.3 RDW 15.1 Plt Count 216 MPV 11.0 Immature Gran % (Auto) 0.7 H Neut % (Auto) 69.6 Lymph % (Auto) 15.9 L [place] % (Auto) 11.0 Eos % (Auto) 2.1 Baso % (Auto) 0.7 Lymph # (Auto) 1.1 L [place] # (Auto) 0.8 Eos # (Auto) 0.2 Baso # (Auto) 0.1 Abs Immat Gran (auto) 0.05 H Absolute Neuts (auto) 4.9 Absolute Nucleated RBC 0.000 Nucleated RBC % (auto) 0.0 VBG pH 7.48 H VBG pCO2 33 VBG pO2 44 VBG HCO3 25 VBG O2 Saturation 70.0 VBG Base Excess 2.9 Sodium 133 L Potassium 4.3 Chloride 99 Carbon Dioxide 21 L Anion Gap 17 BUN 38 H Creatinine 1.12 Estim Creat Clear Calc 59.5 Estimated GFR > 60 Random Glucose 106 Calcium 10.1 Phosphorus 4.1 Magnesium 2.4 Albumin 3.7 Microbiology Microbiology Results: Microbiology 02/12/24 14:34 Blood - Venous Blood Culture - Final No growth after 5 days. 02/12/24 14:34 Blood - Venous Blood Culture - Final No growth after 5 days. 02/09/24 13:28 Blood - Venous Blood Culture - Final No growth after 5 days. 02/09/24 13:28 Blood - Venous Blood Culture - Final Haemophilus influenzae Progress Note: A&P Assessment and plan (1) Failure to wean from mechanical ventilation: Status: Acute (2) Encephalopathy: Status: Acute (3) Atrial fibrillation: Status: Acute (4) Coronary artery disease: Status: Acute (5) Acute respiratory failure with hypoxia: Status: Acute (6) PAF (paroxysmal atrial fibrillation): Status: Acute (7) Cardiomyopathy: Status: Acute Plan Assessment: 83-year-old gentleman admitted with acute hypoxic respiratory failure and alteration of mental status likely secondary to aspiration event now with inability to wean from ventilatory support. Plan: Neuro: Hospital-acquired delirium/unspecified encephalopathy with poor improvement despite prolonged sedation vacation and essentially normal brain imaging. Cardiac: No acute issues. Underlying systolic congestive heart failure and AFib, chronic. Pulmonary: Acute hypoxic respiratory failure now requiring ventilatory support, with failure to wean from mechanical ventilation. Planned for tracheostomy/parenteral gastrostomy on 02/27/2024. Renal: No acute issues. Endo: No acute issues. GI: No acute issues. ID: No acute issues. Heme/Onc: No acute issues. Psych: No acute issues. Miscellaneous: No acute issues. Prophylaxis: Pneumatic compression, famotidine Diet: Tube feeds Critical care time spent: 60 minutes Quality Stroke Does the patient have a stroke diagnosis?: No VTE Prior VTE?: No VTE Risk Level:: Medical - moderate - high VTE Device Contraindication: Treatment Not Indicated VTE Drug Contraindication: N/A - Med Ordered
--- NOTE | 2024-02-26 14:35 | MHC.CM.PN ---
Addendum entered by Betty Dey 02/26/24 14:40: Pt does not appear to have a HCP on file: will leave message for pt's dtr - if pt is not able to name an agent after peg/trach/no sedation, he may require a guardian. CM to follow Original Note: Pt is scheduled for a peg/trach on 02/26: Pt has been referred to [facility] in anticipation of LTACH needs: Clinical updates to be remitted after procedures. CM to follow
--- NOTE | 2024-02-26 15:27 | HO.WOUND ---
Wound Consult: Follow up 84yr old?Male admitted to [facility] on 02/09/24 - See progress notes and H&P for detailed history.? Wound consult follow up for Upper Lip Wound, Left Lower Leg wound and not assessed today was the Coccyx wound but photo reviewed.? Patient is intubated at the time of my consultation and remains in ICU level of care. ET Tube continues to secured by Respiratory Therapist to the chin, off loading pressure from the upper lip / Maxilla - resolved erythema to the outer Maxilla - only slight swelling remains but remains soft. Foam block cpntinued to be in place to aid in off loading ET Tube and lifting to prevent pulling and adding pressure to Mandible. The inside lip shows significant signs of improvement - the wound bed appears smaller and lred in pigmentation no purple coloring noted at todays assessment. No new topical orders needed at this time, continue offloading tube and frequent mouth care. Inpatient Wound Care Nurse will continue to follow. Upper Inner Lip Etiology: ??Device related Mucosal Pressure Injury Wound Bed: Improving full thickness wound - red moist viable tissue base Drainage / Odor: no observable drainage noted Edges: ? linear [place] wound: ?outlip wound resurafaced - No Induration, Fluctuance or Warmth noted Goals of Treatment: Off Load Pressure - Limited topical treatment given location - Frequent Mouth care to be provided - Provider to consider Trach Placement Right Leg -resurfaced venous dermatitis - no dressing in place and none needed at this time. Left Leg - resurfaced venous dermatitis - no dressing in place and none needed at this time. Not assessed today: Sacrococcygeal area - photo uploaded from over the weekend reviewed - improved - but remains Deep Tissue Injury Etiology: Deep Tissue Injury in Evolution Goals of Treatment: Off Load Pressure - Barrier cream and foam dressing in place. Of note the patient remains critically ill see provider notes for details. Despite pressure injury development the proper preventative measures have been in place, ADY and Specialty mattress in use, Wedges for off loading in use with frequent repositions see charting for detailed. Preventative foams and heel protectors in place to elbows and heels, in addition to barrier creams. Recommendations: 1. Turn and Reposition every 2 hours and as needed for patient comfort.? Use pillows or wedges to support off loading positions. 2. Off Load all bony prominences with use of pillows and heel boots if needed.? Apply Preventative foams where needed. ? 3. Monitor for incontinence and moisture control, use barrier creams when needed for prevention and treatment. 4. Provide adequate and supplemental nutrition.? 5. Continue low air loss mattress. 6. When applicable maintain blood glucose levels per Providers order. 7. Upper Lip - Off Load Pressure - Frequent oral care to be provided and continue to off load ET tube per Respiratory Therapist recommendations. 8. Bilateral Medel - Cleanse with NS moist gauze, Pat dry,. Apply skin prep to periwound, cover with foam dressing. Change every 3 days and PRN. 9. Sacrococcygeal - Off Load Pressure - Cleanse with PH balanced wipes, apply barrier cream and sacral foam dressing. Change every 3 days and PRN. Re-consult wound care Nurse for wound deterioration or wound changes.
[2024-02-26] MEDS: Eye Irrigation Solution 118 ML IRRIG.SOLN 1 APPL EYE-BOTH (22:00)
[2024-02-27] VITALS (31 sets, daily range): BP systolic 102–155; BP diastolic 51–80; PULSE 76–106; RESP 8–23; TEMP 35–38.4; O2SAT 88–99; BMI 35.3
[2024-02-27] MEDS: 0.9 % Sodium Chloride Flush 10 ML SYRINGE IVFLUSH ×3 (00:42→15:31)
[2024-02-27] MEDS: propofoL 1,000 MG/100 ML VIAL 27.17 MG IVCONT ×3 (00:42→06:39)
[2024-02-27 05:34] LABS: VBG Base Excess 2.2 mmol/L; VBG HCO3 24 mmol/L (22-26); VBG pCO2 31 mmHg; VBG pH 7.49 (7.32-7.43); VBG pO2 45 mmHg
[2024-02-27 05:38] LABS: Venous Blood Gas Refer to POC result
[2024-02-27 05:56] LABS: MANUAL DIFF FLAG NO
[2024-02-27 05:58] LABS: Basophils Absolute Auto 0.1 X10*3/uL (0.0-0.2); Basophils Percent Auto 0.7 % (0-2); Eosinophils Absolute Auto 0.2 X10*3/uL (0.0-0.4); Eosinophils Percent Auto 1.9 % (0-4); Hematocrit 31.3 % (42.0-52.0); Hemoglobin 10.1 g/dl (14.0-18.0); Imm Gran Abs Auto 0.06 X10*3/uL (0.00-0.03); Imm Gran Pct Auto 0.7 % (0.0-0.4); Lymphocytes Absolute Auto 1.7 X10*3/uL (1.2-4.9); Lymphocytes Percent Auto 19.8 % (20-40); Mean Corpuscular HGB Conc 32.3 g/dl (31.0-36.0); Mean Corpuscular Hemoglobin 28.5 pg (27.0-33.0); Mean Corpuscular Volume 88.4 fL (80.0-98.0); Mean Platelet Volume 10.3 fL (9.4-12.4); Monocytes Absolute Auto 0.9 X10*3/uL (0.1-1.2); Monocytes Percent Auto 10.9 % (2-11); Neutrophils Absolute Auto 5.5 x10*3/uL (2.0-8.3); Platelet Count 250 X10*3/uL (160-400); Red Blood Count 3.54 X10*6/uL (4.60-5.80); Red Cell Distribution Width 14.9 % (11.0-16.0); White Blood Count 8.4 X10*3/uL (4.8-10.8)
[2024-02-27 06:04] LABS: Prothrombin Time 12.6 SEC (11.1-13.3)
[2024-02-27 06:16] LABS: Albumin Level 3.7 g/dL (3.5-5.0); Anion Gap 20 (12-20); Blood Urea Nitrogen 56 mg/dL (9-16); Calcium 10.3 mg/dL (8.4-10.2); Carbon Dioxide 20 mmol/L (22-29); Chloride 103 mmol/L (96-108); Creatinine Clr Calc Pharmacy 41.9; Estimated Glomerular Filt Rate 42; Glucose Random 117 mg/dL (60-115); Magnesium 2.6 mg/dL (1.6-2.6); Phosphorus 5.7 mg/dL (2.7-4.5); Potassium 3.6 mmol/L (3.3-5.1); Sodium 139 mmol/L (135-145)
--- NOTE | 2024-02-27 07:22 | HO.ANESPROP2 ---
HPI - Anesthesia Eval Consult details Narrative: 84 yo male patient with aspiration pneumonia and failure to wean.For tracheostomy and PEG insertion Re-Intubated 02/12/24. OCETT#8. Pressure control Pi 12. PEEP 5. Fio2 0.3 PMFSH Active Problems Active Problems: All Active Problems (Updated 02/27/24 @ 07:27 by Nicki Mueller MD) Failure to wean from mechanical ventilation (Acute) Delirium (Acute) Encephalopathy (Acute) Atrial fibrillation (Acute) Coronary artery disease (Acute) Acute respiratory failure with hypoxia (Acute) Aspiration pneumonia (Acute) Altered mental status (Acute) Sepsis (Acute) Pneumonia (Acute) Cardiomyopathy (Acute) EF 45% Nonrheumatic aortic (valve) stenosis (Acute) Atherosclerotic cardiovascular disease (Acute) PAF (paroxysmal atrial fibrillation) (Acute) LLQ abdominal pain (Acute) NSTEMI (non-ST elevated myocardial infarction) (Acute) Chest pain (Acute) Hyperkalemia (Acute) Atrial flutter with rapid ventricular response (Acute) CKD (chronic kidney disease) (Acute) PRABHU (acute kidney injury) (Acute) Renal stone (Acute) Ureteral stone with hydronephrosis (Acute) Influenza B (Acute) Murmur, heart (Acute) HTN (hypertension) (Acute) Sleep apnea (Acute) Elevated PSA (Acute) BPH loc w urin obs/LUTS (Acute) Past Medical History Medical History Atherosclerotic cardiovascular disease PAF (paroxysmal atrial fibrillation) NSTEMI (non-ST elevated myocardial infarction) Chronic renal disease, stage 3, moderately decreased glomerular filtration rate (GFR) between 30-59 mL/min/1.73 square meter Chest pain Heart failure Thyroid disease GERD (gastroesophageal reflux disease) On anticoagulant therapy COVID-19 vaccine series completed Symptomatic cholelithiasis HTN (hypertension) Hyperlipidemia Atrial fibrillation Sleep apnea Elevated PSA Facet arthropathy, cervical BPH loc w urin obs/LUTS Family History Family History Unknown No problems noted. Family history of problems with anesthesia: No Surgical History Surgical History S/P laparoscopic cholecystectomy Hx of cataract extraction History of total replacement of both hip joints Hx of cystoscopy H/O colonoscopy History of surgery History of Problems with Anesthesia: No Social History Social History Household Members: Unknown / Unable to assess Housing: Unknown / Unable to assess Are you a primary animal care worker to a significant other at home: No Alcohol intake: never Comment: bilateral wrist restraints for airway/line safety...propofol drip Patient Tobacco Use Status: Tobacco use Unknown Advance Directives Date on File: 07/08/22 service: No Current occupational status: retired Meds Allergies Allergy/AdvReac Type Severity Reaction Status Date / Time ibuprofen [IBUPROFEN] Allergy Intermediate HIVES Verified 02/09/24 13:22 hydromorphone [From DILAUDID] AdvReac Intermediate ILEUS Verified 02/09/24 13:22 procaine [From Novocain] AdvReac Intermediate has no Verified 02/09/24 13:22 numbing effect-states monocain works narcotic pain meds AdvReac Intermediate does not Uncoded 05/11/23 15:08 relieve pain per patient Active Medications: Current Medications Acetaminophen (Acetaminophen 325 Mg Tablet) 975 mg PO Q6H PRN PRN Reason: Fever >100.4 Amlodipine Besylate (Amlodipine Besylate 10 Mg Tablet) 10 mg PO DAILY [facility]; Protocol Last Admin: 02/26/24 08:01 Dose: 10 mg Chlorhexidine Gluconate (Chlorhexidine Gluc Oral Rinse 15 Ml Mouthwash) 15 ml BUCCAL TID [facility] Last Admin: 02/26/24 21:36 Dose: 15 ml Famotidine (Famotidine/Pf 20 Mg/2 Ml Vial) 20 mg IVPUSH DAILY [facility] Last Admin: 02/26/24 08:00 Dose: 20 mg Propofol (Diprivan) 1,000 mg in 100 mls @ 0 mls/hr IVCONT .Q0M [facility]; Protocol Last Admin: 02/27/24 06:39 Dose: 40 mcg/kg/min, 27.17 mls/hr Lactulose (Lactulose 20 Gm/30 Ml Solution) 30 gm PO BID [facility] Last Admin: 02/26/24 21:51 Dose: 30 gm Levothyroxine Sodium (Levothyroxine Sodium 88 Mcg Tablet) 88 mcg PO DAILY@0600 [facility] Last Admin: 02/27/24 05:35 Dose: Not Given Sodium Chloride (0.9 % Sodium Chloride Flush 10 Ml Syringe) 10 ml IVFLUSH QSHIFT AIDAN Last Admin: 02/27/24 07:17 Dose: 10 ml Tetrahydrozoline HCl (Tetrahydrozoline Hcl 0.05% Oph 15 Ml Drpbtl) 1 drop EYE-BOTH QID PRN PRN Reason: Dry Eyes Home Medications ?Medication ?Instructions ?Recorded ?Confirmed ?Last Taken ?Type levothyroxine 88 mcg tablet 88 mcg PO DAILY 11/12/20 02/09/24 07/07/22 History amlodipine 2.5 mg tablet 2.5 mg PO DAILY 02/15/22 02/09/24 07/07/22 History apixaban 2.5 mg tablet (Eliquis) 2.5 mg PO BID 05/11/23 02/09/24 Unknown History atorvastatin 80 mg tablet 80 mg PO DAILY 05/11/23 02/09/24 Unknown History oxybutynin chloride 10 mg 10 mg PO DAILY 05/11/23 02/09/24 Unknown History tablet,extended release 24 hr pantoprazole 40 mg tablet,delayed 40 mg PO DAILY 05/11/23 02/09/24 Unknown History release amiodarone 200 mg tablet 100 mg PO DAILY 08/03/23 02/09/24 Unknown History Exam Height,Weight and Vital Signs: Height 5 ft 9 in Weight 108.3 kg Last Vital Signs Temp 98.1 F 02/27/24 07:00 Pulse 78 02/27/24 07:00 Resp 16 02/27/24 07:00 BP 106/54 L 02/27/24 07:00 Pulse Ox 97 02/27/24 07:00 O2 Del Method Mechanical Ventilation 02/27/24 07:00 O2 Flow Rate 30 02/20/24 20:00 FiO2 25 02/27/24 07:19 Pertinent Lab Results Pertinent Lab Results: Laboratory Tests 02/09/24 02/09/24 02/09/24 13:28 13:46 17:09 WBC 15.1 H RBC 4.67 Hgb 13.5 L Hct 40.7 L MCV 87.2 MCH 28.9 MCHC 33.2 RDW 15.3 Plt Count 160 D MPV 9.8 Immature Gran % (Auto) 0.6 H Neut % (Auto) 81.6 H Lymph % (Auto) 4.4 L [place] % (Auto) 13.2 H Eos % (Auto) 0.0 Baso % (Auto) 0.2 Lymph # (Auto) 0.7 L [place] # (Auto) 2.0 H Eos # (Auto) 0.0 Baso # (Auto) 0.0 Abs Immat Gran (auto) 0.09 H Absolute Neuts (auto) 12.3 H Absolute Nucleated RBC 0.000 Nucleated RBC % (auto) 0.0 Neutrophils % (Manual) Band Neutrophils % Lymphocytes % (Manual) Atypical Lymphs % (Man) Monocytes % (Manual) Eosinophils % (Manual) Basophils % (Manual) Metamyelocytes % Myelocytes % Abs Neuts (Manual) Lymphocytes # (Manual) Atyp Lymphs # (Manual) Monocytes # (Manual) Eosinophils # (Manual) Basophils # (Manual) Metamyelocytes # Myelocytes # Toxic Vacuolation Platelet Estimate Large Platelets Plt Morphology Comment RBC Morphology Polychromasia Ovalocytes Maury Cells Acanthocytes (Spur) Schistocytes Smear Tech's Comments VERIFIED PT 15.5 H INR 1.3 H APTT 37.0 H Hold Blue Top VBG pH VBG pCO2 VBG pO2 VBG HCO3 VBG O2 Saturation VBG Base Excess Sodium 138 Potassium 4.3 Chloride 103 Carbon Dioxide 19 L Anion Gap 20 BUN 19 H Creatinine 1.56 H Estim Creat Clear Calc 45.0 Estimated GFR 43 POC Glucose Random Glucose 175 H Lactic Acid 4.3 H* Lactic Acid F/U @ 2Hr 2.4 H* Lactic Acid F/U @ 4Hr Calcium 9.0 Phosphorus Magnesium 1.7 Total Bilirubin 1.5 H AST 22 ALT 11 Alkaline Phosphatase 85 Troponin I High Sens 1352.2 H* D 3367.4 H* D Total Protein 7.2 Albumin 3.6 TSH Urine Color Yellow Urine Appearance Clear Urine pH 6.5 Ur Specific [place] 1.015 Urine Protein 300 (3+) H Urine Glucose (UA) Negative Urine Ketones 15 Urine Blood Large (3+) H Urine Nitrite Negative Ur Leukocyte Esterase Negative Urine RBC >20 H Urine WBC 0-5 Ur Squamous Epith Cells 0-2 Urine Bacteria None Seen Hyaline Casts 0-2 Nasal Screen MRSA (PCR) Nasal S. aureus Screen Nasal MRSA/S.aureus Interp Influenza Type A (PCR) NEGATIVE Influenza Type B (PCR) NEGATIVE RSV RNA Qual (PCR) NEGATIVE SARS-CoV-2 RNA (RT-PCR) NEGATIVE 02/09/24 02/09/24 02/10/24 17:13 19:37 04:36 WBC RBC Hgb Hct MCV MCH MCHC RDW Plt Count MPV Immature Gran % (Auto) Neut % (Auto) Lymph % (Auto) [place] % (Auto) Eos % (Auto) Baso % (Auto) Lymph # (Auto) [place] # (Auto) Eos # (Auto) Baso # (Auto) Abs Immat Gran (auto) Absolute Neuts (auto) Absolute Nucleated RBC Nucleated RBC % (auto) Neutrophils % (Manual) Band Neutrophils % Lymphocytes % (Manual) Atypical Lymphs % (Man) Monocytes % (Manual) Eosinophils % (Manual) Basophils % (Manual) Metamyelocytes % Myelocytes % Abs Neuts (Manual) Lymphocytes # (Manual) Atyp Lymphs # (Manual) Monocytes # (Manual) Eosinophils # (Manual) Basophils # (Manual) Metamyelocytes # Myelocytes # Toxic Vacuolation Platelet Estimate Large Platelets Plt Morphology Comment RBC Morphology Polychromasia Ovalocytes Maury Cells Acanthocytes (Spur) Schistocytes Smear Tech's Comments PT INR APTT Hold Blue Top VBG pH 7.42 7.55 H VBG pCO2 34 24 VBG pO2 64 48 VBG HCO3 22 21 L VBG O2 Saturation 89.0 80.0 VBG Base Excess -1.3 0.9 Sodium Potassium Chloride Carbon Dioxide Anion Gap BUN Creatinine Estim Creat Clear Calc Estimated GFR POC Glucose Random Glucose Lactic Acid Lactic Acid F/U @ 2Hr Lactic Acid F/U @ 4Hr 2.3 H* Calcium Phosphorus Magnesium Total Bilirubin AST ALT Alkaline Phosphatase Troponin I High Sens Total Protein Albumin TSH Urine Color Urine Appearance Urine pH Ur Specific [place] Urine Protein Urine Glucose (UA) Urine Ketones Urine Blood Urine Nitrite Ur Leukocyte Esterase Urine RBC Urine WBC Ur Squamous Epith Cells Urine Bacteria Hyaline Casts Nasal Screen MRSA (PCR) Nasal S. aureus Screen Nasal MRSA/S.aureus Interp Influenza Type A (PCR) Influenza Type B (PCR) RSV RNA Qual (PCR) SARS-CoV-2 RNA (RT-PCR) 02/10/24 02/10/24 02/10/24 04:40 07:14 07:15 WBC 10.6 RBC 4.66 Hgb 13.3 L Hct 41.1 L MCV 88.2 MCH 28.5 MCHC 32.4 RDW 15.7 Plt Count 129 L MPV 10.8 Immature Gran % (Auto) Cancelled Neut % (Auto) Cancelled Lymph % (Auto) Cancelled [place] % (Auto) Cancelled Eos % (Auto) Cancelled Baso % (Auto) Cancelled Lymph # (Auto) Cancelled [place] # (Auto) Cancelled Eos # (Auto) Cancelled Baso # (Auto) Cancelled Abs Immat Gran (auto) Cancelled Absolute Neuts (auto) Cancelled Absolute Nucleated RBC 0.000 Nucleated RBC % (auto) 0.0 Neutrophils % (Manual) 58 Band Neutrophils % 28 H Lymphocytes % (Manual) 11 L Atypical Lymphs % (Man) Monocytes % (Manual) 2 Eosinophils % (Manual) Basophils % (Manual) Metamyelocytes % 1 Myelocytes % Abs Neuts (Manual) 9.1 H Lymphocytes # (Manual) 1.2 Atyp Lymphs # (Manual) Monocytes # (Manual) 0.2 Eosinophils # (Manual) Basophils # (Manual) Metamyelocytes # 0.1 Myelocytes # Toxic Vacuolation PRESENT Platelet Estimate SLIGHTLY DECREASED Large Platelets Plt Morphology Comment NORMAL RBC Morphology NOTED Polychromasia 1+ (0-2) Ovalocytes Maury Cells 3+ (>5) Acanthocytes (Spur) 2+ (3-5) Schistocytes 3+ (>5) Smear Tech's Comments PT INR APTT Hold Blue Top VBG pH VBG pCO2 VBG pO2 VBG HCO3 VBG O2 Saturation VBG Base Excess Sodium 139 Potassium 3.7 Chloride 105 Carbon Dioxide 22 Anion Gap 16 BUN 22 H Creatinine 1.55 H Estim Creat Clear Calc 45.8 Estimated GFR 43 POC Glucose Random Glucose 107 Lactic Acid Lactic Acid F/U @ 2Hr Lactic Acid F/U @ 4Hr Calcium 8.7 Phosphorus 2.8 Magnesium 1.7 Total Bilirubin 1.5 H AST 18 ALT 11 Alkaline Phosphatase 62 Troponin I High Sens 837.8 H* D Total Protein 6.2 L Albumin 3.1 L TSH Urine Color Urine Appearance Urine pH Ur Specific [place] Urine Protein Urine Glucose (UA) Urine Ketones Urine Blood Urine Nitrite Ur Leukocyte Esterase Urine RBC Urine WBC Ur Squamous Epith Cells Urine Bacteria Hyaline Casts Nasal Screen MRSA (PCR) Nasal S. aureus Screen Nasal MRSA/S.aureus Interp Influenza Type A (PCR) Influenza Type B (PCR) RSV RNA Qual (PCR) SARS-CoV-2 RNA (RT-PCR) 02/11/24 02/11/24 02/12/24 04:46 04:48 05:25 WBC 8.9 RBC 4.14 L Hgb 11.7 L Hct 35.7 L MCV 86.2 MCH 28.3 MCHC 32.8 RDW 15.2 Plt Count 129 L MPV 10.4 Immature Gran % (Auto) 0.6 H Neut % (Auto) 80.8 H Lymph % (Auto) 8.3 L [place] % (Auto) 9.0 Eos % (Auto) 0.9 Baso % (Auto) 0.4 Lymph # (Auto) 0.7 L [place] # (Auto) 0.8 Eos # (Auto) 0.1 Baso # (Auto) 0.0 Abs Immat Gran (auto) 0.05 H Absolute Neuts (auto) 7.2 Absolute Nucleated RBC 0.000 Nucleated RBC % (auto) 0.0 Neutrophils % (Manual) Band Neutrophils % Lymphocytes % (Manual) Atypical Lymphs % (Man) Monocytes % (Manual) Eosinophils % (Manual) Basophils % (Manual) Metamyelocytes % Myelocytes % Abs Neuts (Manual) Lymphocytes # (Manual) Atyp Lymphs # (Manual) Monocytes # (Manual) Eosinophils # (Manual) Basophils # (Manual) Metamyelocytes # Myelocytes # Toxic Vacuolation Platelet Estimate Large Platelets Plt Morphology Comment RBC Morphology Polychromasia Ovalocytes [place] Cells Acanthocytes (Spur) Schistocytes Smear Tech's Comments PT INR APTT Hold Blue Top VBG pH 7.51 H 7.46 H VBG pCO2 29 33 VBG pO2 56 47 VBG HCO3 23 24 VBG O2 Saturation 85.0 76.0 VBG Base Excess 1.4 0.7 Sodium 139 Potassium 3.7 Chloride 106 Carbon Dioxide 22 Anion Gap 15 BUN 27 H Creatinine 1.29 Estim Creat Clear Calc 55.0 Estimated GFR 53 POC Glucose Random Glucose 108 Lactic Acid Lactic Acid F/U @ 2Hr Lactic Acid F/U @ 4Hr Calcium 8.4 Phosphorus 2.8 Magnesium 1.9 Total Bilirubin AST ALT Alkaline Phosphatase Troponin I High Sens Total Protein Albumin 2.9 L TSH Urine Color Urine Appearance Urine pH Ur Specific [place] Urine Protein Urine Glucose (UA) Urine Ketones Urine Blood Urine Nitrite Ur Leukocyte Esterase Urine RBC Urine WBC Ur Squamous Epith Cells Urine Bacteria Hyaline Casts Nasal Screen MRSA (PCR) Nasal S. aureus Screen Nasal MRSA/S.aureus Interp Influenza Type A (PCR) Influenza Type B (PCR) RSV RNA Qual (PCR) SARS-CoV-2 RNA (RT-PCR) 02/12/24 02/12/24 02/12/24 05:27 11:09 12:15 WBC 7.8 RBC 3.11 L D Hgb 9.1 L D Hct 27.4 L D MCV 88.1 MCH 29.3 MCHC 33.2 RDW 15.4 Plt Count 133 L MPV 10.6 Immature Gran % (Auto) 0.5 H Neut % (Auto) 85.2 H Lymph % (Auto) 7.1 L [place] % (Auto) 6.7 Eos % (Auto) 0.4 Baso % (Auto) 0.1 Lymph # (Auto) 0.6 L [place] # (Auto) 0.5 Eos # (Auto) 0.0 Baso # (Auto) 0.0 Abs Immat Gran (auto) 0.04 H Absolute Neuts (auto) 6.6 Absolute Nucleated RBC 0.000 Nucleated RBC % (auto) 0.0 Neutrophils % (Manual) Band Neutrophils % Lymphocytes % (Manual) Atypical Lymphs % (Man) Monocytes % (Manual) Eosinophils % (Manual) Basophils % (Manual) Metamyelocytes % Myelocytes % Abs Neuts (Manual) Lymphocytes # (Manual) Atyp Lymphs # (Manual) Monocytes # (Manual) Eosinophils # (Manual) Basophils # (Manual) Metamyelocytes # Myelocytes # Toxic Vacuolation Platelet Estimate Large Platelets Plt Morphology Comment RBC Morphology Polychromasia Ovalocytes Maury Cells Acanthocytes (Spur) Schistocytes Smear Tech's Comments PT INR APTT Hold Blue Top VBG pH VBG pCO2 VBG pO2 VBG HCO3 VBG O2 Saturation VBG Base Excess Sodium 145 146 H Potassium 4.0 3.1 L D Chloride 109 H 110 H Carbon Dioxide 22 24 Anion Gap 18 15 BUN 32 H 33 H Creatinine 1.38 1.29 Estim Creat Clear Calc 50.6 54.1 Estimated GFR 49 53 POC Glucose 118 H Random Glucose 125 H 116 H Lactic Acid Lactic Acid F/U @ 2Hr Lactic Acid F/U @ 4Hr Calcium 9.1 D 9.1 Phosphorus 3.1 2.4 L Magnesium 2.0 2.1 Total Bilirubin AST ALT Alkaline Phosphatase Troponin I High Sens Total Protein Albumin 3.7 TSH Urine Color Urine Appearance Urine pH Ur Specific [place] Urine Protein Urine Glucose (UA) Urine Ketones Urine Blood Urine Nitrite Ur Leukocyte Esterase Urine RBC Urine WBC Ur Squamous Epith Cells Urine Bacteria Hyaline Casts Nasal Screen MRSA (PCR) Nasal S. aureus Screen Nasal MRSA/S.aureus Interp Influenza Type A (PCR) Influenza Type B (PCR) RSV RNA Qual (PCR) SARS-CoV-2 RNA (RT-PCR) 02/12/24 02/13/24 02/13/24 17:03 00:35 00:53 WBC RBC Hgb Hct MCV MCH MCHC RDW Plt Count MPV Immature Gran % (Auto) Neut % (Auto) Lymph % (Auto) [place] % (Auto) Eos % (Auto) Baso % (Auto) Lymph # (Auto) [place] # (Auto) Eos # (Auto) Baso # (Auto) Abs Immat Gran (auto) Absolute Neuts (auto) Absolute Nucleated RBC Nucleated RBC % (auto) Neutrophils % (Manual) Band Neutrophils % Lymphocytes % (Manual) Atypical Lymphs % (Man) Monocytes % (Manual) Eosinophils % (Manual) Basophils % (Manual) Metamyelocytes % Myelocytes % Abs Neuts (Manual) Lymphocytes # (Manual) Atyp Lymphs # (Manual) Monocytes # (Manual) Eosinophils # (Manual) Basophils # (Manual) Metamyelocytes # Myelocytes # Toxic Vacuolation Platelet Estimate Large Platelets Plt Morphology Comment RBC Morphology Polychromasia Ovalocytes Maury Cells Acanthocytes (Spur) Schistocytes Smear Tech's Comments PT INR APTT Hold Blue Top SEE NOTE VBG pH VBG pCO2 VBG pO2 VBG HCO3 VBG O2 Saturation VBG Base Excess Sodium 147 H Potassium 3.0 L Chloride 109 H Carbon Dioxide 26 Anion Gap 15 BUN 36 H Creatinine 1.49 H Estim Creat Clear Calc 46.8 Estimated GFR 45 POC Glucose 96 100 Random Glucose 101 Lactic Acid Lactic Acid F/U @ 2Hr Lactic Acid F/U @ 4Hr Calcium 9.5 Phosphorus 2.9 Magnesium 2.3 Total Bilirubin 1.5 H AST 54 H ALT 30 Alkaline Phosphatase 60 Troponin I High Sens 111.8 H* D Total Protein 7.1 Albumin 3.5 TSH 2.28 Urine Color Urine Appearance Urine pH Ur Specific [place] Urine Protein Urine Glucose (UA) Urine Ketones Urine Blood Urine Nitrite Ur Leukocyte Esterase Urine RBC Urine WBC Ur Squamous Epith Cells Urine Bacteria Hyaline Casts Nasal Screen MRSA (PCR) Nasal S. aureus Screen Nasal MRSA/S.aureus Interp Influenza Type A (PCR) Influenza Type B (PCR) RSV RNA Qual (PCR) SARS-CoV-2 RNA (RT-PCR) 02/13/24 02/13/24 02/13/24 05:46 05:47 07:19 WBC 8.1 RBC 3.37 L Hgb 9.7 L Hct 29.8 L MCV 88.4 MCH 28.8 MCHC 32.6 RDW 15.7 Plt Count 162 MPV 10.4 Immature Gran % (Auto) 2.2 H Neut % (Auto) 73.6 H Lymph % (Auto) 12.0 L [place] % (Auto) 9.7 Eos % (Auto) 2.1 Baso % (Auto) 0.4 Lymph # (Auto) 1.0 L [place] # (Auto) 0.8 Eos # (Auto) 0.2 Baso # (Auto) 0.0 Abs Immat Gran (auto) 0.18 H Absolute Neuts (auto) 6.0 Absolute Nucleated RBC 0.000 Nucleated RBC % (auto) 0.0 Neutrophils % (Manual) Band Neutrophils % Lymphocytes % (Manual) Atypical Lymphs % (Man) Monocytes % (Manual) Eosinophils % (Manual) Basophils % (Manual) Metamyelocytes % Myelocytes % Abs Neuts (Manual) Lymphocytes # (Manual) Atyp Lymphs # (Manual) Monocytes # (Manual) Eosinophils # (Manual) Basophils # (Manual) Metamyelocytes # Myelocytes # Toxic Vacuolation Platelet Estimate Large Platelets Plt Morphology Comment RBC Morphology Polychromasia Ovalocytes [place] Cells Acanthocytes (Spur) Schistocytes Smear Tech's Comments PT INR APTT Hold Blue Top VBG pH 7.43 VBG pCO2 38 VBG pO2 40 VBG HCO3 25 VBG O2 Saturation 62.0 VBG Base Excess 1.5 Sodium 147 H Potassium 3.2 L Chloride 110 H Carbon Dioxide 23 Anion Gap 17 BUN 35 H Creatinine 1.34 Estim Creat Clear Calc 52.1 Estimated GFR 51 POC Glucose Random Glucose 99 Lactic Acid Lactic Acid F/U @ 2Hr Lactic Acid F/U @ 4Hr Calcium 9.1 Phosphorus 2.8 Magnesium 2.3 Total Bilirubin AST ALT Alkaline Phosphatase Troponin I High Sens 86.7 H Total Protein Albumin TSH Urine Color Urine Appearance Urine pH Ur Specific [place] Urine Protein Urine Glucose (UA) Urine Ketones Urine Blood Urine Nitrite Ur Leukocyte Esterase Urine RBC Urine WBC Ur Squamous Epith Cells Urine Bacteria Hyaline Casts Nasal Screen MRSA (PCR) Nasal S. aureus Screen Nasal MRSA/S.aureus Interp Influenza Type A (PCR) Influenza Type B (PCR) RSV RNA Qual (PCR) SARS-CoV-2 RNA (RT-PCR) 02/13/24 02/14/24 02/14/24 07:27 05:13 05:16 WBC 7.8 RBC 3.20 L Hgb 9.5 L Hct 28.4 L MCV 88.8 MCH 29.7 MCHC 33.5 RDW 16.1 H Plt Count 175 MPV 10.5 Immature Gran % (Auto) 5.0 H Neut % (Auto) 61.7 Lymph % (Auto) 17.0 L [place] % (Auto) 12.1 H Eos % (Auto) 3.7 Baso % (Auto) 0.5 Lymph # (Auto) 1.3 [place] # (Auto) 0.9 Eos # (Auto) 0.3 Baso # (Auto) 0.0 Abs Immat Gran (auto) 0.39 H Absolute Neuts (auto) 4.8 Absolute Nucleated RBC 0.040 H Nucleated RBC % (auto) 0.5 H Neutrophils % (Manual) Band Neutrophils % Lymphocytes % (Manual) Atypical Lymphs % (Man) Monocytes % (Manual) Eosinophils % (Manual) Basophils % (Manual) Metamyelocytes % Myelocytes % Abs Neuts (Manual) Lymphocytes # (Manual) Atyp Lymphs # (Manual) Monocytes # (Manual) Eosinophils # (Manual) Basophils # (Manual) Metamyelocytes # Myelocytes # Toxic Vacuolation Platelet Estimate Large Platelets Plt Morphology Comment RBC Morphology Polychromasia Ovalocytes [place] Cells Acanthocytes (Spur) Schistocytes Smear Tech's Comments PT INR APTT Hold Blue Top VBG pH 7.53 H VBG pCO2 29 VBG pO2 41 VBG HCO3 24 VBG O2 Saturation 70.0 VBG Base Excess 2.4 Sodium 146 H Potassium 3.4 Chloride 112 H Carbon Dioxide 22 Anion Gap 15 BUN 32 H Creatinine 1.44 H Estim Creat Clear Calc 48.5 Estimated GFR 47 POC Glucose 100 Random Glucose 115 Lactic Acid Lactic Acid F/U @ 2Hr Lactic Acid F/U @ 4Hr Calcium 8.7 Phosphorus 2.9 Magnesium 2.2 Total Bilirubin AST ALT Alkaline Phosphatase Troponin I High Sens Total Protein Albumin TSH Urine Color Urine Appearance Urine pH Ur Specific [place] Urine Protein Urine Glucose (UA) Urine Ketones Urine Blood Urine Nitrite Ur Leukocyte Esterase Urine RBC Urine WBC Ur Squamous Epith Cells Urine Bacteria Hyaline Casts Nasal Screen MRSA (PCR) Nasal S. aureus Screen Nasal MRSA/S.aureus Interp Influenza Type A (PCR) Influenza Type B (PCR) RSV RNA Qual (PCR) SARS-CoV-2 RNA (RT-PCR) 02/14/24 02/15/24 02/15/24 16:40 04:27 04:37 WBC 6.7 RBC 3.08 L Hgb 8.9 L Hct 27.3 L MCV 88.6 MCH 28.9 MCHC 32.6 RDW 16.5 H Plt Count 208 MPV 10.3 Immature Gran % (Auto) Cancelled Neut % (Auto) Cancelled Lymph % (Auto) Cancelled [place] % (Auto) Cancelled Eos % (Auto) Cancelled Baso % (Auto) Cancelled Lymph # (Auto) Cancelled [place] # (Auto) Cancelled Eos # (Auto) Cancelled Baso # (Auto) Cancelled Abs Immat Gran (auto) Cancelled Absolute Neuts (auto) Cancelled Absolute Nucleated RBC 0.060 H Nucleated RBC % (auto) 0.9 H Neutrophils % (Manual) 55 Band Neutrophils % 2 L Lymphocytes % (Manual) 14 L Atypical Lymphs % (Man) Monocytes % (Manual) 21 H Eosinophils % (Manual) 4 Basophils % (Manual) 1 Metamyelocytes % 2 Myelocytes % 1 Abs Neuts (Manual) 3.8 Lymphocytes # (Manual) 0.9 L Atyp Lymphs # (Manual) Monocytes # (Manual) 1.4 H Eosinophils # (Manual) 0.3 Basophils # (Manual) 0.1 Metamyelocytes # 0.1 Myelocytes # 0.1 Toxic Vacuolation PRESENT Platelet Estimate NORMAL Large Platelets Plt Morphology Comment NORMAL RBC Morphology NOTED Polychromasia Ovalocytes 1+ (5-14) Maury Cells 1+ (0-2) Acanthocytes (Spur) 1+ (0-2) Schistocytes Smear Tech's Comments PT INR APTT Hold Blue Top VBG pH 7.56 H VBG pCO2 26 VBG pO2 53 VBG HCO3 24 VBG O2 Saturation 88.0 VBG Base Excess 2.8 Sodium 146 H Potassium 3.4 Chloride 111 H Carbon Dioxide 22 Anion Gap 16 BUN 32 H Creatinine 1.57 H Estim Creat Clear Calc 44.0 Estimated GFR 42 POC Glucose Random Glucose 126 H Lactic Acid Lactic Acid F/U @ 2Hr Lactic Acid F/U @ 4Hr Calcium 8.9 Phosphorus 3.2 Magnesium 2.2 Total Bilirubin AST ALT Alkaline Phosphatase Troponin I High Sens Total Protein Albumin TSH Urine Color Urine Appearance Urine pH Ur Specific [place] Urine Protein Urine Glucose (UA) Urine Ketones Urine Blood Urine Nitrite Ur Leukocyte Esterase Urine RBC Urine WBC Ur Squamous Epith Cells Urine Bacteria Hyaline Casts Nasal Screen MRSA (PCR) NEGATIVE Nasal S. aureus Screen NEGATIVE Nasal MRSA/S.aureus Interp SEE NOTE Influenza Type A (PCR) Influenza Type B (PCR) RSV RNA Qual (PCR) SARS-CoV-2 RNA (RT-PCR) 02/15/24 02/16/24 02/16/24 18:23 04:43 04:56 WBC 8.5 RBC 3.59 L Hgb 10.3 L Hct 31.3 L MCV 87.2 MCH 28.7 MCHC 32.9 RDW 16.4 H Plt Count 205 MPV 9.7 Immature Gran % (Auto) Cancelled Neut % (Auto) Cancelled Lymph % (Auto) Cancelled [place] % (Auto) Cancelled Eos % (Auto) Cancelled Baso % (Auto) Cancelled Lymph # (Auto) Cancelled [place] # (Auto) Cancelled Eos # (Auto) Cancelled Baso # (Auto) Cancelled Abs Immat Gran (auto) Cancelled Absolute Neuts (auto) Cancelled Absolute Nucleated RBC 0.040 H Nucleated RBC % (auto) 0.5 H Neutrophils % (Manual) 44 L Band Neutrophils % 10 H Lymphocytes % (Manual) 12 L Atypical Lymphs % (Man) 3 Monocytes % (Manual) 23 H Eosinophils % (Manual) 4 Basophils % (Manual) 1 Metamyelocytes % 2 Myelocytes % 1 Abs Neuts (Manual) 4.6 Lymphocytes # (Manual) 1.0 L Atyp Lymphs # (Manual) 0.3 Monocytes # (Manual) 2.0 H Eosinophils # (Manual) 0.3 Basophils # (Manual) 0.1 Metamyelocytes # 0.2 Myelocytes # 0.1 Toxic Vacuolation Platelet Estimate NORMAL Large Platelets Plt Morphology Comment NORMAL RBC Morphology NORMAL Polychromasia Ovalocytes [place] Cells Acanthocytes (Spur) Schistocytes Smear Tech's Comments PT INR APTT Hold Blue Top VBG pH 7.52 H VBG pCO2 38 VBG pO2 51 VBG HCO3 31 H VBG O2 Saturation 82.0 VBG Base Excess 8.6 Sodium 145 143 Potassium 5.1 D 3.7 D Chloride 110 H 104 Carbon Dioxide 24 29 Anion Gap 16 14 BUN 31 H 32 H Creatinine 1.43 H 1.53 H Estim Creat Clear Calc 48.9 44.2 Estimated GFR 47 44 POC Glucose Random Glucose 126 H 116 H Lactic Acid Lactic Acid F/U @ 2Hr Lactic Acid F/U @ 4Hr Calcium 8.5 9.2 D Phosphorus 3.8 3.5 Magnesium 2.0 1.9 Total Bilirubin AST ALT Alkaline Phosphatase Troponin I High Sens Total Protein Albumin TSH Urine Color Urine Appearance Urine pH Ur Specific [place] Urine Protein Urine Glucose (UA) Urine Ketones Urine Blood Urine Nitrite Ur Leukocyte Esterase Urine RBC Urine WBC Ur Squamous Epith Cells Urine Bacteria Hyaline Casts Nasal Screen MRSA (PCR) Nasal S. aureus Screen Nasal MRSA/S.aureus Interp Influenza Type A (PCR) Influenza Type B (PCR) RSV RNA Qual (PCR) SARS-CoV-2 RNA (RT-PCR) 02/16/24 02/17/24 02/17/24 18:13 04:12 04:17 WBC 11.2 H RBC 3.83 L Hgb 10.8 L Hct 33.6 L MCV 87.7 MCH 28.2 MCHC 32.1 RDW 16.3 H Plt Count 222 MPV 10.1 Immature Gran % (Auto) Cancelled Neut % (Auto) Cancelled Lymph % (Auto) Cancelled [place] % (Auto) Cancelled Eos % (Auto) Cancelled Baso % (Auto) Cancelled Lymph # (Auto) Cancelled [place] # (Auto) Cancelled Eos # (Auto) Cancelled Baso # (Auto) Cancelled Abs Immat Gran (auto) Cancelled Absolute Neuts (auto) Cancelled Absolute Nucleated RBC 0.030 H Nucleated RBC % (auto) 0.3 H Neutrophils % (Manual) 54 Band Neutrophils % 5 Lymphocytes % (Manual) 19 L Atypical Lymphs % (Man) Monocytes % (Manual) 12 H Eosinophils % (Manual) Basophils % (Manual) 1 Metamyelocytes % 5 Myelocytes % 4 Abs Neuts (Manual) 6.6 Lymphocytes # (Manual) 2.1 Atyp Lymphs # (Manual) Monocytes # (Manual) 1.3 H Eosinophils # (Manual) Basophils # (Manual) 0.1 Metamyelocytes # 0.6 Myelocytes # 0.4 Toxic Vacuolation Platelet Estimate NORMAL Large Platelets Plt Morphology Comment NORMAL RBC Morphology NOTED Polychromasia 1+ (0-2) Ovalocytes 1+ (5-14) [place] Cells Acanthocytes (Spur) 1+ (0-2) Schistocytes 1+ (0-2) Smear Tech's Comments PT INR APTT Hold Blue Top VBG pH 7.57 H VBG pCO2 37 VBG pO2 49 VBG HCO3 34 H VBG O2 Saturation 78.0 VBG Base Excess 11.5 Sodium 139 Potassium 4.9 D Chloride 100 Carbon Dioxide 29 Anion Gap 15 BUN 33 H Creatinine 1.52 H Estim Creat Clear Calc 44.5 Estimated GFR 44 POC Glucose Random Glucose 118 H Lactic Acid Lactic Acid F/U @ 2Hr Lactic Acid F/U @ 4Hr Calcium 9.3 Phosphorus 3.5 Magnesium 2.2 Total Bilirubin AST ALT Alkaline Phosphatase Troponin I High Sens Total Protein Albumin TSH Urine Color Urine Appearance Urine pH Ur Specific [place] Urine Protein Urine Glucose (UA) Urine Ketones Urine Blood Urine Nitrite Ur Leukocyte Esterase Urine RBC Urine WBC Ur Squamous Epith Cells Urine Bacteria Hyaline Casts Nasal Screen MRSA (PCR) Nasal S. aureus Screen Nasal MRSA/S.aureus Interp Influenza Type A (PCR) Influenza Type B (PCR) RSV RNA Qual (PCR) SARS-CoV-2 RNA (RT-PCR) 02/17/24 02/17/24 02/18/24 06:31 15:18 04:41 WBC RBC Hgb Hct MCV MCH MCHC RDW Plt Count MPV Immature Gran % (Auto) Neut % (Auto) Lymph % (Auto) [place] % (Auto) Eos % (Auto) Baso % (Auto) Lymph # (Auto) [place] # (Auto) Eos # (Auto) Baso # (Auto) Abs Immat Gran (auto) Absolute Neuts (auto) Absolute Nucleated RBC Nucleated RBC % (auto) Neutrophils % (Manual) Band Neutrophils % Lymphocytes % (Manual) Atypical Lymphs % (Man) Monocytes % (Manual) Eosinophils % (Manual) Basophils % (Manual) Metamyelocytes % Myelocytes % Abs Neuts (Manual) Lymphocytes # (Manual) Atyp Lymphs # (Manual) Monocytes # (Manual) Eosinophils # (Manual) Basophils # (Manual) Metamyelocytes # Myelocytes # Toxic Vacuolation Platelet Estimate Large Platelets Plt Morphology Comment RBC Morphology Polychromasia Ovalocytes Maury Cells Acanthocytes (Spur) Schistocytes Smear Tech's Comments PT INR APTT Hold Blue Top VBG pH 7.60 H* VBG pCO2 29 VBG pO2 71 VBG HCO3 29 H VBG O2 Saturation 93.0 VBG Base Excess 8.3 Sodium 139 138 Potassium 4.0 4.2 Chloride 97 95 L Carbon Dioxide 30 H 29 Anion Gap 16 18 BUN 39 H 40 H Creatinine 1.62 H 1.64 H Estim Creat Clear Calc 41.7 41.2 Estimated GFR 41 40 POC Glucose Random Glucose 142 H 139 H Lactic Acid Lactic Acid F/U @ 2Hr Lactic Acid F/U @ 4Hr Calcium 9.4 9.5 Phosphorus 3.9 4.1 Magnesium 2.3 2.4 Total Bilirubin AST ALT Alkaline Phosphatase Troponin I High Sens Total Protein Albumin TSH Urine Color Urine Appearance Urine pH Ur Specific [place] Urine Protein Urine Glucose (UA) Urine Ketones Urine Blood Urine Nitrite Ur Leukocyte Esterase Urine RBC Urine WBC Ur Squamous Epith Cells Urine Bacteria Hyaline Casts Nasal Screen MRSA (PCR) Nasal S. aureus Screen Nasal MRSA/S.aureus Interp Influenza Type A (PCR) Influenza Type B (PCR) RSV RNA Qual (PCR) SARS-CoV-2 RNA (RT-PCR) 02/18/24 02/18/24 02/19/24 04:42 18:01 04:33 WBC 13.2 H 17.4 H RBC 4.04 L 4.02 L Hgb 11.6 L 11.5 L Hct 33.7 L 34.7 L MCV 83.4 86.3 MCH 28.7 28.6 MCHC 34.4 33.1 RDW 15.9 15.9 Plt Count 184 216 MPV 11.4 10.3 Immature Gran % (Auto) Cancelled 2.5 H Neut % (Auto) Cancelled 70.1 Lymph % (Auto) Cancelled 11.3 L [place] % (Auto) Cancelled 14.4 H Eos % (Auto) Cancelled 1.4 Baso % (Auto) Cancelled 0.3 Lymph # (Auto) Cancelled 2.0 [place] # (Auto) Cancelled 2.5 H Eos # (Auto) Cancelled 0.2 Baso # (Auto) Cancelled 0.1 Abs Immat Gran (auto) Cancelled 0.44 H Absolute Neuts (auto) Cancelled 12.2 H Absolute Nucleated RBC 0.000 0.000 Nucleated RBC % (auto) 0.0 0.0 Neutrophils % (Manual) 62 Band Neutrophils % 3 Lymphocytes % (Manual) 16 L Atypical Lymphs % (Man) Monocytes % (Manual) 14 H Eosinophils % (Manual) 3 Basophils % (Manual) Metamyelocytes % 1 Myelocytes % 1 Abs Neuts (Manual) 8.6 H Lymphocytes # (Manual) 2.1 Atyp Lymphs # (Manual) Monocytes # (Manual) 1.8 H Eosinophils # (Manual) 0.4 Basophils # (Manual) Metamyelocytes # 0.1 Myelocytes # 0.1 Toxic Vacuolation Platelet Estimate NORMAL Large Platelets PRESENT Plt Morphology Comment NOTED RBC Morphology NOTED Polychromasia 1+ (0-2) Ovalocytes 1+ (5-14) Maury Cells Acanthocytes (Spur) 1+ (0-2) Schistocytes Smear Tech's Comments VERIFIED PT INR APTT Hold Blue Top VBG pH VBG pCO2 VBG pO2 VBG HCO3 VBG O2 Saturation VBG Base Excess Sodium 135 135 134 L Potassium 3.7 4.4 4.8 Chloride 95 L 95 L 95 L Carbon Dioxide 25 27 26 Anion Gap 19 17 18 BUN 41 H 43 H 45 H Creatinine 1.70 H 1.78 H 1.78 H Estim Creat Clear Calc 39.8 38.0 38.0 Estimated GFR 39 37 37 POC Glucose Random Glucose 146 H 147 H 160 H Lactic Acid Lactic Acid F/U @ 2Hr Lactic Acid F/U @ 4Hr Calcium 9.6 9.7 9.5 Phosphorus 3.3 4.4 4.3 Magnesium 2.5 2.8 H 2.8 H Total Bilirubin AST ALT Alkaline Phosphatase Troponin I High Sens Total Protein Albumin TSH Urine Color Urine Appearance Urine pH Ur Specific [place] Urine Protein Urine Glucose (UA) Urine Ketones Urine Blood Urine Nitrite Ur Leukocyte Esterase Urine RBC Urine WBC Ur Squamous Epith Cells Urine Bacteria Hyaline Casts Nasal Screen MRSA (PCR) Nasal S. aureus Screen Nasal MRSA/S.aureus Interp Influenza Type A (PCR) Influenza Type B (PCR) RSV RNA Qual (PCR) SARS-CoV-2 RNA (RT-PCR) 02/19/24 02/19/24 02/20/24 04:37 19:09 05:15 WBC 14.1 H RBC 3.73 L Hgb 10.6 L Hct 32.0 L MCV 85.8 MCH 28.4 MCHC 33.1 RDW 15.7 Plt Count 174 MPV 10.4 Immature Gran % (Auto) 1.6 H Neut % (Auto) 67.8 Lymph % (Auto) 16.5 L [place] % (Auto) 11.9 H Eos % (Auto) 1.8 Baso % (Auto) 0.4 Lymph # (Auto) 2.3 [place] # (Auto) 1.7 H Eos # (Auto) 0.3 Baso # (Auto) 0.1 Abs Immat Gran (auto) 0.22 H Absolute Neuts (auto) 9.6 H Absolute Nucleated RBC 0.000 Nucleated RBC % (auto) 0.0 Neutrophils % (Manual) Band Neutrophils % Lymphocytes % (Manual) Atypical Lymphs % (Man) Monocytes % (Manual) Eosinophils % (Manual) Basophils % (Manual) Metamyelocytes % Myelocytes % Abs Neuts (Manual) Lymphocytes # (Manual) Atyp Lymphs # (Manual) Monocytes # (Manual) Eosinophils # (Manual) Basophils # (Manual) Metamyelocytes # Myelocytes # Toxic Vacuolation Platelet Estimate Large Platelets Plt Morphology Comment RBC Morphology Polychromasia Ovalocytes [place] Cells Acanthocytes (Spur) Schistocytes Smear Tech's Comments VERIFIED PT INR APTT Hold Blue Top VBG pH 7.57 H VBG pCO2 34 VBG pO2 45 VBG HCO3 31 H VBG O2 Saturation 72.0 VBG Base Excess 9.3 Sodium 133 L 133 L Potassium 4.5 4.6 Chloride 97 96 Carbon Dioxide 27 26 Anion Gap 14 16 BUN 45 H 45 H Creatinine 1.69 H 1.81 H Estim Creat Clear Calc 39.5 36.9 Estimated GFR 39 36 POC Glucose Random Glucose 144 H 149 H Lactic Acid Lactic Acid F/U @ 2Hr Lactic Acid F/U @ 4Hr Calcium 8.8 D 9.3 Phosphorus 4.0 3.8 Magnesium 2.8 H 2.8 H Total Bilirubin AST ALT Alkaline Phosphatase Troponin I High Sens Total Protein Albumin TSH Urine Color Urine Appearance Urine pH Ur Specific [place] Urine Protein Urine Glucose (UA) Urine Ketones Urine Blood Urine Nitrite Ur Leukocyte Esterase Urine RBC Urine WBC Ur Squamous Epith Cells Urine Bacteria Hyaline Casts Nasal Screen MRSA (PCR) Nasal S. aureus Screen Nasal MRSA/S.aureus Interp Influenza Type A (PCR) Influenza Type B (PCR) RSV RNA Qual (PCR) SARS-CoV-2 RNA (RT-PCR) 02/20/24 02/21/24 02/21/24 05:20 05:09 05:10 WBC 12.4 H RBC 3.54 L Hgb 10.0 L Hct 30.8 L MCV 87.0 MCH 28.2 MCHC 32.5 RDW 15.4 Plt Count 169 MPV 10.8 Immature Gran % (Auto) 1.1 H Neut % (Auto) 65.5 Lymph % (Auto) 17.1 L [place] % (Auto) 13.7 H Eos % (Auto) 2.1 Baso % (Auto) 0.5 Lymph # (Auto) 2.1 [place] # (Auto) 1.7 H Eos # (Auto) 0.3 Baso # (Auto) 0.1 Abs Immat Gran (auto) 0.14 H Absolute Neuts (auto) 8.1 Absolute Nucleated RBC 0.000 Nucleated RBC % (auto) 0.0 Neutrophils % (Manual) Band Neutrophils % Lymphocytes % (Manual) Atypical Lymphs % (Man) Monocytes % (Manual) Eosinophils % (Manual) Basophils % (Manual) Metamyelocytes % Myelocytes % Abs Neuts (Manual) Lymphocytes # (Manual) Atyp Lymphs # (Manual) Monocytes # (Manual) Eosinophils # (Manual) Basophils # (Manual) Metamyelocytes # Myelocytes # Toxic Vacuolation Platelet Estimate Large Platelets Plt Morphology Comment RBC Morphology Polychromasia Ovalocytes [place] Cells Acanthocytes (Spur) Schistocytes Smear Tech's Comments VERIFIED PT INR APTT Hold Blue Top VBG pH 7.62 H* 7.53 H VBG pCO2 29 42 VBG pO2 46 44 VBG HCO3 30 H 35 H VBG O2 Saturation 76.0 70.0 VBG Base Excess 9.5 12.1 Sodium 134 L Potassium 4.8 Chloride 97 Carbon Dioxide 26 Anion Gap 16 BUN 43 H Creatinine 1.55 H Estim Creat Clear Calc 43.1 Estimated GFR 43 POC Glucose Random Glucose 137 H Lactic Acid Lactic Acid F/U @ 2Hr Lactic Acid F/U @ 4Hr Calcium 9.4 Phosphorus 4.0 Magnesium 2.8 H Total Bilirubin AST ALT Alkaline Phosphatase Troponin I High Sens Total Protein Albumin 2.9 L TSH Urine Color Urine Appearance Urine pH Ur Specific [place] Urine Protein Urine Glucose (UA) Urine Ketones Urine Blood Urine Nitrite Ur Leukocyte Esterase Urine RBC Urine WBC Ur Squamous Epith Cells Urine Bacteria Hyaline Casts Nasal Screen MRSA (PCR) Nasal S. aureus Screen Nasal MRSA/S.aureus Interp Influenza Type A (PCR) Influenza Type B (PCR) RSV RNA Qual (PCR) SARS-CoV-2 RNA (RT-PCR) 02/22/24 02/22/24 02/23/24 05:31 05:49 04:51 WBC 7.5 RBC 3.10 L Hgb 8.8 L Hct 26.8 L MCV 86.5 MCH 28.4 MCHC 32.8 RDW 15.6 Plt Count 165 MPV 10.6 Immature Gran % (Auto) 0.7 H Neut % (Auto) 60.5 Lymph % (Auto) 22.9 [place] % (Auto) 13.1 H Eos % (Auto) 2.1 Baso % (Auto) 0.7 Lymph # (Auto) 1.7 [place] # (Auto) 1.0 Eos # (Auto) 0.2 Baso # (Auto) 0.1 Abs Immat Gran (auto) 0.05 H Absolute Neuts (auto) 4.5 Absolute Nucleated RBC 0.000 Nucleated RBC % (auto) 0.0 Neutrophils % (Manual) Band Neutrophils % Lymphocytes % (Manual) Atypical Lymphs % (Man) Monocytes % (Manual) Eosinophils % (Manual) Basophils % (Manual) Metamyelocytes % Myelocytes % Abs Neuts (Manual) Lymphocytes # (Manual) Atyp Lymphs # (Manual) Monocytes # (Manual) Eosinophils # (Manual) Basophils # (Manual) Metamyelocytes # Myelocytes # Toxic Vacuolation Platelet Estimate Large Platelets Plt Morphology Comment RBC Morphology Polychromasia Ovalocytes [place] Cells Acanthocytes (Spur) Schistocytes Smear Tech's Comments PT INR APTT Hold Blue Top VBG pH 7.67 H* 7.58 H VBG pCO2 26 30 VBG pO2 53 41 VBG HCO3 30 H 28 H VBG O2 Saturation 87.0 68.0 VBG Base Excess 10.2 7.2 Sodium 138 Potassium 4.1 Chloride 103 Carbon Dioxide 25 Anion Gap 14 BUN 40 H Creatinine 1.30 Estim Creat Clear Calc 51.0 Estimated GFR 53 POC Glucose Random Glucose 107 Lactic Acid Lactic Acid F/U @ 2Hr Lactic Acid F/U @ 4Hr Calcium 9.5 Phosphorus 3.7 Magnesium 2.7 H Total Bilirubin AST ALT Alkaline Phosphatase Troponin I High Sens Total Protein Albumin 4.0 TSH Urine Color Urine Appearance Urine pH Ur Specific [place] Urine Protein Urine Glucose (UA) Urine Ketones Urine Blood Urine Nitrite Ur Leukocyte Esterase Urine RBC Urine WBC Ur Squamous Epith Cells Urine Bacteria Hyaline Casts Nasal Screen MRSA (PCR) Nasal S. aureus Screen Nasal MRSA/S.aureus Interp Influenza Type A (PCR) Influenza Type B (PCR) RSV RNA Qual (PCR) SARS-CoV-2 RNA (RT-PCR) 02/23/24 02/24/24 02/24/24 04:53 05:08 05:17 WBC 6.4 6.2 RBC 3.17 L 3.27 L Hgb 9.1 L 9.2 L Hct 27.3 L 28.2 L MCV 86.1 86.2 MCH 28.7 28.1 MCHC 33.3 32.6 RDW 15.0 14.9 Plt Count 178 203 MPV 10.2 10.0 Immature Gran % (Auto) 0.5 H 0.6 H Neut % (Auto) 62.3 57.7 Lymph % (Auto) 20.4 25.0 [place] % (Auto) 12.6 H 12.5 H Eos % (Auto) 3.4 3.4 Baso % (Auto) 0.8 0.8 Lymph # (Auto) 1.3 1.6 [place] # (Auto) 0.8 0.8 Eos # (Auto) 0.2 0.2 Baso # (Auto) 0.1 0.1 Abs Immat Gran (auto) 0.03 0.04 H Absolute Neuts (auto) 4.0 3.6 Absolute Nucleated RBC 0.000 0.000 Nucleated RBC % (auto) 0.0 0.0 Neutrophils % (Manual) Band Neutrophils % Lymphocytes % (Manual) Atypical Lymphs % (Man) Monocytes % (Manual) Eosinophils % (Manual) Basophils % (Manual) Metamyelocytes % Myelocytes % Abs Neuts (Manual) Lymphocytes # (Manual) Atyp Lymphs # (Manual) Monocytes # (Manual) Eosinophils # (Manual) Basophils # (Manual) Metamyelocytes # Myelocytes # Toxic Vacuolation Platelet Estimate Large Platelets Plt Morphology Comment RBC Morphology Polychromasia Ovalocytes [place] Cells Acanthocytes (Spur) Schistocytes Smear Tech's Comments PT INR APTT Hold Blue Top VBG pH 7.57 H VBG pCO2 30 VBG pO2 44 VBG HCO3 27 H VBG O2 Saturation 72.0 VBG Base Excess 6.2 Sodium 139 138 Potassium 4.6 4.2 Chloride 102 103 Carbon Dioxide 18 L 23 Anion Gap 24 H 16 BUN 40 H 40 H Creatinine 1.50 H 1.42 H Estim Creat Clear Calc 44.2 47.5 Estimated GFR 45 47 POC Glucose Random Glucose 113 113 Lactic Acid Lactic Acid F/U @ 2Hr Lactic Acid F/U @ 4Hr Calcium 10.0 9.8 Phosphorus 4.6 H 4.8 H Magnesium 2.7 H 2.6 Total Bilirubin AST ALT Alkaline Phosphatase Troponin I High Sens Total Protein Albumin 3.7 3.4 L TSH Urine Color Urine Appearance Urine pH Ur Specific [place] Urine Protein Urine Glucose (UA) Urine Ketones Urine Blood Urine Nitrite Ur Leukocyte Esterase Urine RBC Urine WBC Ur Squamous Epith Cells Urine Bacteria Hyaline Casts Nasal Screen MRSA (PCR) Nasal S. aureus Screen Nasal MRSA/S.aureus Interp Influenza Type A (PCR) Influenza Type B (PCR) RSV RNA Qual (PCR) SARS-CoV-2 RNA (RT-PCR) 02/25/24 02/25/24 02/25/24 06:14 06:15 06:19 WBC 6.3 RBC 3.40 L Hgb 9.7 L Hct 29.6 L MCV 87.1 MCH 28.5 MCHC 32.8 RDW 14.7 Plt Count 220 MPV 10.1 Immature Gran % (Auto) 0.5 H Neut % (Auto) 64.1 Lymph % (Auto) 20.1 [place] % (Auto) 11.1 H Eos % (Auto) 3.2 Baso % (Auto) 1.0 Lymph # (Auto) 1.3 [place] # (Auto) 0.7 Eos # (Auto) 0.2 Baso # (Auto) 0.1 Abs Immat Gran (auto) 0.03 Absolute Neuts (auto) 4.0 Absolute Nucleated RBC 0.000 Nucleated RBC % (auto) 0.0 Neutrophils % (Manual) Band Neutrophils % Lymphocytes % (Manual) Atypical Lymphs % (Man) Monocytes % (Manual) Eosinophils % (Manual) Basophils % (Manual) Metamyelocytes % Myelocytes % Abs Neuts (Manual) Lymphocytes # (Manual) Atyp Lymphs # (Manual) Monocytes # (Manual) Eosinophils # (Manual) Basophils # (Manual) Metamyelocytes # Myelocytes # Toxic Vacuolation Platelet Estimate Large Platelets Plt Morphology Comment RBC Morphology Polychromasia Ovalocytes [place] Cells Acanthocytes (Spur) Schistocytes Smear Tech's Comments PT INR APTT Hold Blue Top VBG pH 7.54 H VBG pCO2 29 VBG pO2 67 VBG HCO3 25 VBG O2 Saturation 95.0 VBG Base Excess 4.0 Sodium 139 Potassium 4.4 Chloride 104 Carbon Dioxide 25 Anion Gap 14 BUN 40 H Creatinine 1.20 Estim Creat Clear Calc 56.5 Estimated GFR 58 POC Glucose Random Glucose 120 H Lactic Acid Lactic Acid F/U @ 2Hr Lactic Acid F/U @ 4Hr Calcium 10.1 Phosphorus 4.6 H Magnesium 2.3 Total Bilirubin AST ALT Alkaline Phosphatase Troponin I High Sens Total Protein Albumin 3.9 TSH Urine Color Urine Appearance Urine pH Ur Specific [place] Urine Protein Urine Glucose (UA) Urine Ketones Urine Blood Urine Nitrite Ur Leukocyte Esterase Urine RBC Urine WBC Ur Squamous Epith Cells Urine Bacteria Hyaline Casts Nasal Screen MRSA (PCR) Nasal S. aureus Screen Nasal MRSA/S.aureus Interp Influenza Type A (PCR) Influenza Type B (PCR) RSV RNA Qual (PCR) SARS-CoV-2 RNA (RT-PCR) 02/26/24 02/26/24 02/27/24 05:06 05:11 05:13 WBC 7.1 8.4 RBC 3.40 L 3.54 L Hgb 10.6 L 10.1 L Hct 30.0 L 31.3 L MCV 88.2 88.4 MCH 31.2 28.5 MCHC 35.3 32.3 RDW 15.1 14.9 Plt Count 216 250 MPV 11.0 10.3 Immature Gran % (Auto) 0.7 H 0.7 H Neut % (Auto) 69.6 66.0 Lymph % (Auto) 15.9 L 19.8 L [place] % (Auto) 11.0 10.9 Eos % (Auto) 2.1 1.9 Baso % (Auto) 0.7 0.7 Lymph # (Auto) 1.1 L 1.7 [place] # (Auto) 0.8 0.9 Eos # (Auto) 0.2 0.2 Baso # (Auto) 0.1 0.1 Abs Immat Gran (auto) 0.05 H 0.06 H Absolute Neuts (auto) 4.9 5.5 Absolute Nucleated RBC 0.000 0.000 Nucleated RBC % (auto) 0.0 0.0 Neutrophils % (Manual) Band Neutrophils % Lymphocytes % (Manual) Atypical Lymphs % (Man) Monocytes % (Manual) Eosinophils % (Manual) Basophils % (Manual) Metamyelocytes % Myelocytes % Abs Neuts (Manual) Lymphocytes # (Manual) Atyp Lymphs # (Manual) Monocytes # (Manual) Eosinophils # (Manual) Basophils # (Manual) Metamyelocytes # Myelocytes # Toxic Vacuolation Platelet Estimate Large Platelets Plt Morphology Comment RBC Morphology Polychromasia Ovalocytes Maury Cells Acanthocytes (Spur) Schistocytes Smear Tech's Comments PT 12.6 INR 1.0 APTT Hold Blue Top VBG pH 7.48 H VBG pCO2 33 VBG pO2 44 VBG HCO3 25 VBG O2 Saturation 70.0 VBG Base Excess 2.9 Sodium 133 L 139 Potassium 4.3 3.6 Chloride 99 103 Carbon Dioxide 21 L 20 L Anion Gap 17 20 BUN 38 H 56 H Creatinine 1.12 1.59 H Estim Creat Clear Calc 59.5 41.9 Estimated GFR > 60 42 POC Glucose Random Glucose 106 117 H Lactic Acid Lactic Acid F/U @ 2Hr Lactic Acid F/U @ 4Hr Calcium 10.1 10.3 H Phosphorus 4.1 5.7 H Magnesium 2.4 2.6 Total Bilirubin AST ALT Alkaline Phosphatase Troponin I High Sens Total Protein Albumin 3.7 3.7 TSH Urine Color Urine Appearance Urine pH Ur Specific [place] Urine Protein Urine Glucose (UA) Urine Ketones Urine Blood Urine Nitrite Ur Leukocyte Esterase Urine RBC Urine WBC Ur Squamous Epith Cells Urine Bacteria Hyaline Casts Nasal Screen MRSA (PCR) Nasal S. aureus Screen Nasal MRSA/S.aureus Interp Influenza Type A (PCR) Influenza Type B (PCR) RSV RNA Qual (PCR) SARS-CoV-2 RNA (RT-PCR) 02/27/24 05:23 WBC RBC Hgb Hct MCV MCH MCHC RDW Plt Count MPV Immature Gran % (Auto) Neut % (Auto) Lymph % (Auto) [place] % (Auto) Eos % (Auto) Baso % (Auto) Lymph # (Auto) [place] # (Auto) Eos # (Auto) Baso # (Auto) Abs Immat Gran (auto) Absolute Neuts (auto) Absolute Nucleated RBC Nucleated RBC % (auto) Neutrophils % (Manual) Band Neutrophils % Lymphocytes % (Manual) Atypical Lymphs % (Man) Monocytes % (Manual) Eosinophils % (Manual) Basophils % (Manual) Metamyelocytes % Myelocytes % Abs Neuts (Manual) Lymphocytes # (Manual) Atyp Lymphs # (Manual) Monocytes # (Manual) Eosinophils # (Manual) Basophils # (Manual) Metamyelocytes # Myelocytes # Toxic Vacuolation Platelet Estimate Large Platelets Plt Morphology Comment RBC Morphology Polychromasia Ovalocytes [place] Cells Acanthocytes (Spur) Schistocytes Smear Tech's Comments PT INR APTT Hold Blue Top VBG pH 7.49 H VBG pCO2 31 VBG pO2 45 VBG HCO3 24 VBG O2 Saturation 72.0 VBG Base Excess 2.2 Sodium Potassium Chloride Carbon Dioxide Anion Gap BUN Creatinine Estim Creat Clear Calc Estimated GFR POC Glucose Random Glucose Lactic Acid Lactic Acid F/U @ 2Hr Lactic Acid F/U @ 4Hr Calcium Phosphorus Magnesium Total Bilirubin AST ALT Alkaline Phosphatase Troponin I High Sens Total Protein Albumin TSH Urine Color Urine Appearance Urine pH Ur Specific [place] Urine Protein Urine Glucose (UA) Urine Ketones Urine Blood Urine Nitrite Ur Leukocyte Esterase Urine RBC Urine WBC Ur Squamous Epith Cells Urine Bacteria Hyaline Casts Nasal Screen MRSA (PCR) Nasal S. aureus Screen Nasal MRSA/S.aureus Interp Influenza Type A (PCR) Influenza Type B (PCR) RSV RNA Qual (PCR) SARS-CoV-2 RNA (RT-PCR) Narrative Narrative: Patient intubated and ventilated. Propofolo infusion for sedation. No pressors Airway Heart: Irregularly irregular Lungs: Diminished Assessment and Plan Assessment Anesthesia Assessment: Anesthesia Plan Discussed (Plan discussed with and consent obtained from patient's daughter Chapis Atkinson) Final Anesthetic Review Family History of Problems with Anesthesia: No History of Problems with Anesthesia: No NPO: Yes ASA Class: IV Final Preanesthetic Review: No Changes in Pt Med Stat, Meds/Allgs Chart Reviewed, Consent Obtained/Reviewed and Anes Risks/Benef Reviewed Patient Risk: High Procedure Risk: Intermediate Anesthetic Plan Anesthetic Plan: GA Disposition: Inp. Admit - ICU
[2024-02-27] MEDS: Famotidine/PF 20 MG/2 ML VIAL IVPUSH (07:42)
[2024-02-27] MEDS: Chlorhexidine Gluc Oral Rinse 15 ML MOUTHWASH BUCCAL ×3 (07:42→20:46)
--- NOTE | 2024-02-27 09:08 | P.OP_ITS ---
Operative Note Operative Note Date of Service: 02/27/24 Narrative: Preoperative diagnosis: [] Ventilatory dependence, aspiration pneumonia Postop diagnosis: [] The same Procedure [] open tracheostomy with 8. Long Shiley Surgeon: [] [facility]: [Alanis Type of Anesthesia: [] General Indication for surgery: [] As noted above Findings: [] Patient brought to the operating room, placed on operative table supine position, after an adequate level of general anesthesia was induced, patient had his neck extended with a shoulder roll and the neck and chest area were prepped and draped in usual sterile fashion using a transverse incision approximate 1 fingerbreadth above the sternal notch, this carried down through skin, subcutaneous tissue, cervical fascia. Linea alba was opened and strap muscle was retracted laterally. Isthmus of the thyroid was transected using B ovie and trachea was identified. Between the 2nd and 3rd tracheal rings, transverse incision was made and dilated. Concurrent with ETT withdrawal, a long Shiley was advanced into the distal trachea. This was connected to the circuit with good chest movement, end-tidal CO2, and O2 saturations. Wound was irrigated, secured hemostasis. It was closed in the following manner; interrupted inverted dermal 3-0 Vicryl sutures used to close the skin. Tracheostomy was secured the skin using 2-0 silk sutures. Velcro strap was then placed. Sponge, needle, and instrument counts reported correct. Patient tolerated the procedure well and emerged from anesthesia stable condition. EBL minimal. Patient was next to undergo PEG placement per Dr. Bettencourt. Please refer to his operative note regarding this.
--- NOTE | 2024-02-27 09:10 | P.OP_ITS ---
Operative Note Operative Note Date of Service: 02/27/24 Narrative: Preop diagnosis: Failure to wean from the ventilator Postop diagnosis: The same Procedure: PEG tube placement Surgeon: Uday Bettencourt MD bookkeeping assistant: MARKO Thapa The patient is 84-year-old male admitted because of respiratory failure has been weanable from the ventilator. He is scheduled today for PEG tube placement. He had a tracheostomy tube placed as well His daughter had given consent for the procedure. She understood the technique as well as the risks, benefits, and alternatives The patient was brought to the operating room. The tracheostomy tube placement I had just been completed. He was placed in a bit of reclining position .A surgical time-out was done earlier. The patient was receiving scheduled IV antibiotics. A bite block was in position. I inserted the scope through the bite block into the oropharynx. The vocal cords were visualized. The esophageal slit was seen posterior to this. The esophageal slit was intubated. The scope was advanced with the entire length of the esophagus into the stomach. The stomach was insufflated. Transillumination was seen in the left upper quadrant. Indentation of the anterior stomach wall was easily seen as well with pressure on the abdominal wall on this area using a finger. This area was prepped and draped. Lidocaine 1% was used for local anesthesia. A short stab incision was made on the skin. A large bore needle was inserted and this was passed all the way into the stomach lumen. This was easily seen with the endoscope. A plastic cannula with the needle was left in place. The guidewire was inserted through the cannula. The guidewire was grasped with a snare. The entire guidewire was pulled out past the oral cavity and was onto the PEG tube. The PEG tube was pulled back into the stomach using the guidewire until inner bolster felt snug on the back wall I reinserted the scope to examine the stomach. There was no bleeding. The inner bolster was seen to be in good position. The scope was then withdrawn completely External bolster was also placed to make this snug on the skin The procedure was then completed The patient tolerated the procedure well. There were no immediate complica tions. There was no blood loss. The patient was then transferred to the ICU with stable vital signs.
--- NOTE | 2024-02-27 09:41 | P.PNCC_ITS ---
Subjective Subjective Date of Service: 02/27/24 Interval History: 83-year-old gentleman with underlying paroxysmal AFib on anticoagulation, CAD, congestive heart failure with EF was 45%, chronic renal disease stage III admitted on 02/09/2024 with alteration of mental status and acute hypoxic respiratory failure likely secondary to aspiration event requiring intubation and ventilatory support. Patient started on empiric antibiotics. CT head demonstrated no intracranial bleed. He was admitted to the intensive care unit. Patient initially extubated on 02/11/2024, but required re-intubation 02/12/2024 secondary to ongoing encephalopathy with aspiration. Now status post bronchoscopy with lavage for copious secretions on 02/15/2024. Hospital course further complicated by persistent encephalopathy/hospital-acquired delirium with inability to wean off mechanical ventilation. Now post tracheostomy/gastrostomy on 02/27/2024. No events overnight. Critical Care Time (minutes): 60 Physical Exam 2 Vital Signs: Vital Signs: Last Vital Signs Temp 96.6 F L 02/27/24 09:00 Pulse 82 02/27/24 09:00 Resp 13 02/27/24 09:00 BP 138/58 L 02/27/24 09:00 Pulse Ox 96 02/27/24 09:00 O2 Del Method Trach Collar 02/27/24 09:00 O2 Flow Rate 30 02/20/24 20:00 FiO2 25 02/27/24 09:19 BMI result Body Mass Index 35.3 Const: General: no acute distress and other (Sedated) Eyes: Sclerae: sclerae normal EOM: EOMs intact bilaterally Neck: Neck: Yes no lymphadenopathy and Yes tracheostomy present (On vent) Resp: Auscultation: clear to auscultation bilaterally Cardio: Rate: regular rate Rhythm: regular rhythm Heart sounds: no gallops, no murmurs and no rubs GI: Inspection: Yes G-tube present Palpation (GI): Soft to palpation and Other GI palpation findings present ( Nontender) Auscultation: normal bowel sounds Extrem: General: No clubbing, No cyanosis and Yes edema (1+ bilateral) Objective Data Labs 02/27/24 05:13 02/27/24 05:13 Labs: Laboratory Results - last 24 hr 02/27/24 02/27/24 05:13 05:23 WBC 8.4 RBC 3.54 L Hgb 10.1 L Hct 31.3 L MCV 88.4 MCH 28.5 MCHC 32.3 RDW 14.9 Plt Count 250 MPV 10.3 Immature Gran % (Auto) 0.7 H Neut % (Auto) 66.0 Lymph % (Auto) 19.8 L [place] % (Auto) 10.9 Eos % (Auto) 1.9 Baso % (Auto) 0.7 Lymph # (Auto) 1.7 [place] # (Auto) 0.9 Eos # (Auto) 0.2 Baso # (Auto) 0.1 Abs Immat Gran (auto) 0.06 H Absolute Neuts (auto) 5.5 Absolute Nucleated RBC 0.000 Nucleated RBC % (auto) 0.0 PT 12.6 INR 1.0 VBG pH 7.49 H VBG pCO2 31 VBG pO2 45 VBG HCO3 24 VBG O2 Saturation 72.0 VBG Base Excess 2.2 Sodium 139 Potassium 3.6 Chloride 103 Carbon Dioxide 20 L Anion Gap 20 BUN 56 H Creatinine 1.59 H Estim Creat Clear Calc 41.9 Estimated GFR 42 Random Glucose 117 H Calcium 10.3 H Phosphorus 5.7 H Magnesium 2.6 Albumin 3.7 Microbiology Microbiology Results: Microbiology 02/12/24 14:34 Blood - Venous Blood Culture - Final No growth after 5 days. 02/12/24 14:34 Blood - Venous Blood Culture - Final No growth after 5 days. 02/09/24 13:28 Blood - Venous Blood Culture - Final No growth after 5 days. 02/09/24 13:28 Blood - Venous Blood Culture - Final Haemophilus influenzae Progress Note: A&P Assessment and plan (1) Failure to wean from mechanical ventilation: Status: Acute (2) Encephalopathy: Status: Acute (3) Atrial fibrillation: Status: Acute (4) Coronary artery disease: Status: Acute (5) Acute respiratory failure with hypoxia: Status: Acute (6) Cardiomyopathy: Status: Acute Plan Assessment: 83-year-old gentleman admitted with acute hypoxic respiratory failure and alteration of mental status likely secondary to aspiration event now with inability to wean from ventilatory support. Plan: Neuro: Hospital-acquired delirium/unspecified encephalopathy with poor improvement despite prolonged sedation vacation and essentially normal brain imaging. Cardiac: No acute issues. Underlying systolic congestive heart failure and AFib, chronic. Pulmonary: Acute hypoxic respiratory failure now requiring ventilatory support, with failure to wean from mechanical ventilation. Status post tracheostomy/parenteral gastrostomy on 02/27/2024. Renal: No acute issues. Endo: No acute issues. GI: No acute issues. ID: No acute issues. Heme/Onc: No acute issues. Psych: No acute issues. Miscellaneous: No acute issues. Prophylaxis: Pneumatic compression, famotidine Diet: Tube feeds Critical care time spent: 60 minutes Quality Stroke Does the patient have a stroke diagnosis?: No VTE Prior VTE?: No VTE Risk Level:: Medical - moderate - high VTE Device Contraindication: Treatment Not Indicated VTE Drug Contraindication: N/A - Med Ordered
--- NOTE | 2024-02-27 14:24 | ECG_ITS ---
Test Reason : irregular rhythm Blood Pressure : / mmHG Vent. Rate : 101 BPM Atrial Rate : 000 BPM P-R Int : 000 ms QRS Dur : 080 ms QT Int : 386 ms P-R-T Axes : 000 -47 090 degrees QTc Int : 500 ms Poor data quality, interpretation may be adversely affected Atrial fibrillation with rapid ventricular response Left axis deviation Minimal voltage criteria for LVH, may be normal variant ( R in aVL ) Inferior infarct (cited on or before 19-FEB-2024) Anteroseptal infarct , age undetermined Abnormal ECG When compared with ECG of 21-FEB-2024 07:13, Atrial fibrillation has replaced Sinus rhythm Anteroseptal infarct is now Present Referred By: Brian Jackson Electronically Signed By:STEVE BOGGS
--- NOTE | 2024-02-27 16:12 | MHC.CM.PN ---
PT IS S/P TRACH/PEG PLACEMENT TODAY. UPDATES SENT TO [facility]. PER LIAISON, PT VENT SETTINGS MUST BE STABLE ([id number] [id number] OR BELOW AND OFF ALL GTTS) UPDATES SENT. CM WAS ABLE TO OBTAIN HCP NAMING SPOUSE AND DAUGHTER MICHELLE FROM MEDICAL RECORDS AT [facility], ATTACHED TO CHART. CM WILL CONTINUE TO FOLLOW AND UPDATE [facility] ON PROGRESS.
[2024-02-28] VITALS (29 sets, daily range): BP systolic 106–143; BP diastolic 52–81; PULSE 82–112; RESP 14–20; TEMP 34.5–38; O2SAT 90–98; BMI 34.2
--- NOTE | 2024-02-28 | ECG_ITS ---
Test Reason : tachycardia Blood Pressure : / mmHG Vent. Rate : 148 BPM Atrial Rate : 000 BPM P-R Int : 000 ms QRS Dur : 080 ms QT Int : 256 ms P-R-T Axes : 000 -46 148 degrees QTc Int : 401 ms Atrial fibrillation with rapid ventricular response Left axis deviation Minimal voltage criteria for LVH, may be normal variant ( R in aVL ) Inferior infarct (cited on or before 19-FEB-2024) Anteroseptal infarct (cited on or before 19-FEB-2024) Marked ST abnormality, possible lateral subendocardial injury Abnormal ECG When compared with ECG of 27-FEB-2024 14:31, ST more depressed Lateral leads Inverted T waves have replaced nonspecific T wave abnormality in Lateral leads Referred By: Deya Casarez Electronically Signed By:STEVE BOGGS
[2024-02-28 05:41] LABS: VBG Base Excess 2.9 mmol/L; VBG HCO3 24 mmol/L (22-26); VBG pCO2 29 mmHg; VBG pH 7.53 (7.32-7.43); VBG pO2 51 mmHg
[2024-02-28 06:11] LABS: Venous Blood Gas Refer to POC result
[2024-02-28 06:30] LABS: Basophils Absolute Auto 0.1 X10*3/uL (0.0-0.2); Basophils Percent Auto 0.3 % (0-2); Hematocrit 33.9 % (42.0-52.0); Hemoglobin 10.7 g/dl (14.0-18.0); Imm Gran Abs Auto 0.13 X10*3/uL (0.00-0.03); Imm Gran Pct Auto 0.8 % (0.0-0.4); Lymphocytes Absolute Auto 1.5 X10*3/uL (1.2-4.9); Lymphocytes Percent Auto 9.2 % (20-40); MANUAL DIFF FLAG SCAN; Mean Corpuscular HGB Conc 31.6 g/dl (31.0-36.0); Mean Corpuscular Hemoglobin 27.9 pg (27.0-33.0); Mean Corpuscular Volume 88.5 fL (80.0-98.0); Mean Platelet Volume 11.1 fL (9.4-12.4); Monocytes Absolute Auto 1.6 X10*3/uL (0.1-1.2); Monocytes Percent Auto 9.6 % (2-11); Neutrophils Absolute Auto 13.2 x10*3/uL (2.0-8.3); Neutrophils Percent Auto 80.1 % (45-73); Platelet Count 284 X10*3/uL (160-400); Red Blood Count 3.83 X10*6/uL (4.60-5.80); Red Cell Distribution Width 15.9 % (11.0-16.0); SCAN SMEAR FLAG 1; White Blood Count 16.4 X10*3/uL (4.8-10.8)
[2024-02-28 06:32] LABS: Albumin Level 3.7 g/dL (3.5-5.0); Anion Gap 19 (12-20); Blood Urea Nitrogen 65 mg/dL (9-16); Calcium 10.1 mg/dL (8.4-10.2); Carbon Dioxide 21 mmol/L (22-29); Chloride 103 mmol/L (96-108); Creatinine Clr Calc Pharmacy 35.8; Estimated Glomerular Filt Rate 35; Glucose Random 141 mg/dL (60-115); Magnesium 2.7 mg/dL (1.6-2.6); Phosphorus 5.3 mg/dL (2.7-4.5); Potassium 4.9 mmol/L (3.3-5.1); Sodium 138 mmol/L (135-145)
[2024-02-28] MEDS: 0.9 % Sodium Chloride Flush 10 ML SYRINGE IVFLUSH ×3 (07:15→16:18)
[2024-02-28] MEDS: Chlorhexidine Gluc Oral Rinse 15 ML MOUTHWASH BUCCAL ×3 (07:30→21:42)
[2024-02-28] MEDS: Famotidine/PF 20 MG/2 ML VIAL IVPUSH (07:37)
--- NOTE | 2024-02-28 09:37 | P.PNCC_ITS ---
Subjective Subjective Date of Service: 02/28/24 Interval History: 83-year-old gentleman with underlying paroxysmal AFib on anticoagulation, CAD, congestive heart failure with EF was 45%, chronic renal disease stage III admitted on 02/09/2024 with alteration of mental status and acute hypoxic respiratory failure likely secondary to aspiration event requiring intubation and ventilatory support. Patient started on empiric antibiotics. CT head demonstrated no intracranial bleed. He was admitted to the intensive care unit. Patient initially extubated on 02/11/2024, but required re-intubation 02/12/2024 secondary to ongoing encephalopathy with aspiration. Now status post bronchoscopy with lavage for copious secretions on 02/15/2024. Hospital course further complicated by persistent encephalopathy/hospital-acquired delirium with inability to wean off mechanical ventilation. Now post tracheostomy/gastrostomy on 02/27/2024. No events overnight. Critical Care Time (minutes): 60 Physical Exam 2 Vital Signs: Vital Signs: Last Vital Signs Temp 97.7 F 02/28/24 08:00 Pulse 87 02/28/24 08:00 Resp 18 02/28/24 08:00 BP 116/66 02/28/24 08:00 Pulse Ox 94 02/28/24 08:00 O2 Del Method Room Air 02/28/24 08:00 O2 Flow Rate 30 02/20/24 20:00 FiO2 35 02/28/24 07:36 BMI result Body Mass Index 34.2 Const: General: no acute distress and other (Remains encephalopathic) Eyes: Sclerae: sclerae normal EOM: EOMs intact bilaterally Neck: Neck: Yes tracheostomy present (On the ventilatory support) Resp: Effort & Inspection: normal respiratory effort and no respiratory distress Auscultation: clear to auscultation bilaterally Cardio: Rate: regular rate Rhythm: regular rhythm Heart sounds: no gallops, no murmurs and no rubs GI: Inspection: Yes G-tube present Palpation (GI): Soft to palpation and Other GI palpation findings present ( Nontender) Auscultation: normal bowel sounds Extrem: General: Yes no pedal edema, No clubbing, No cyanosis and Yes edema (1+ bilateral) Objective Data Labs 02/27/24 05:13 02/28/24 05:17 Labs: Laboratory Results - last 24 hr 02/28/24 02/28/24 05:17 05:21 VBG pH 7.53 H VBG pCO2 29 VBG pO2 51 VBG HCO3 24 VBG O2 Saturation 79.0 VBG Base Excess 2.9 Sodium 138 Potassium 4.9 D Chloride 103 Carbon Dioxide 21 L Anion Gap 19 BUN 65 H Creatinine 1.83 H Estim Creat Clear Calc 35.8 Estimated GFR 35 Random Glucose 141 H Calcium 10.1 Phosphorus 5.3 H Magnesium 2.7 H Albumin 3.7 Microbiology Microbiology Results: Microbiology 02/12/24 14:34 Blood - Venous Blood Culture - Final No growth after 5 days. 02/12/24 14:34 Blood - Venous Blood Culture - Final No growth after 5 days. 02/09/24 13:28 Blood - Venous Blood Culture - Final No growth after 5 days. 02/09/24 13:28 Blood - Venous Blood Culture - Final Haemophilus influenzae Progress Note: A&P Assessment and plan (1) PRABHU (acute kidney injury): Status: Acute (2) Failure to wean from mechanical ventilation: Status: Acute (3) Encephalopathy: Status: Acute (4) Coronary artery disease: Status: Acute (5) Cardiomyopathy: Status: Acute Plan Assessment: 83-year-old gentleman admitted with acute hypoxic respiratory failure and alteration of mental status likely secondary to aspiration event now with inability to wean from ventilatory support. Plan: Neuro: Hospital-acquired delirium/unspecified encephalopathy with poor improvement despite prolonged sedation vacation and essentially normal brain imaging. Cardiac: No acute issues. Underlying systolic congestive heart failure and AFib, chronic. Pulmonary: Acute hypoxic respiratory failure now requiring ventilatory support, with failure to wean from mechanical ventilation. Status post tracheostomy/parenteral gastrostomy on 02/27/2024. Renal: No acute issues. Endo: No acute issues. GI: No acute issues. ID: No acute issues. Heme/Onc: No acute issues. Psych: No acute issues. Miscellaneous: No acute issues. Prophylaxis: Pneumatic compression, famotidine Diet: Tube feeds Critical care time spent: 60 minutes Quality Stroke Does the patient have a stroke diagnosis?: No VTE Prior VTE?: No VTE Risk Level:: Medical - moderate - high VTE Device Contraindication: Treatment Not Indicated VTE Drug Contraindication: N/A - Med Ordered
--- NOTE | 2024-02-28 09:39 | MHC.CLN ---
F/U PT S/P TRACH/PEG DISCUSSED AT ROUNDS WITH PT RECEIVING PROMOTE AT MAX GOAL RATE 60ML/HR PROVIDES 1440 KCALS, 90G TOTAL PROTEIN, 1208ML FREE WATER FROM FORMULA PT WITH INCREASED NUTRITION RISK R/T PRESSURE INJURY RECOMMEND INCREASING PROMOTE TO MAX GOAL RATE 85ML/HR WITH 120ML FREE WATER FLUSHES Q 8 HRS TO PROVIDE 2040KCALS (23KCALS/KG BASED ON CMW), 127.5G PROTEIN (1.4G/KG), 2071ML TOTAL FREE WATER FROM FORMULA AND FLUSHES (24ML/KG BASED ON CMW) MONITOR TOLERANCE AND LYTES
[2024-02-28] MEDS: Apixaban 2.5 MG TABLET PO ×2 (09:45→21:42)
[2024-02-28] MEDS: amLODIPine Besylate 10 MG TABLET PO (09:45)
[2024-02-28 11:51] LABS: SLIDE REVIEW VERIFIED
--- NOTE | 2024-02-28 12:02 | PM.PNGS ---
Subjective Subjective Date of Service: 02/28/24 Interval history: O2 sat mid 90s. Physical Exam Vital Signs: Vital Signs: Last Vital Signs Temp 99.5 F 02/28/24 11:00 Pulse 83 02/28/24 11:00 Resp 15 02/28/24 11:00 BP 118/65 02/28/24 11:00 Pulse Ox 96 02/28/24 11:00 O2 Del Method Mechanical Ventil ation 02/28/24 11:00 O2 Flow Rate 30 02/20/24 20:00 FiO2 30 02/28/24 11:05 BMI result Body Mass Index 34.2 Const: General: no acute distress Neck: Other: trach site dry Resp: Other: on vent GI: Other: PEG tube site intact, bolster snug Inspection: No distended Palpation (GI): Soft to palpation and no guarding Objective Data Active Medications Acetaminophen (Acetaminophen 325 Mg Tablet) 975 mg PO Q6H PRN PRN Reason: Fever >100.4 Amlodipine Besylate (Amlodipine Besylate 10 Mg Tablet) 10 mg PO DAILY [facility]; Protocol Last Admin: 02/28/24 09:45 Dose: 10 mg Documented By: MAXIMILIANO Apixaban (Apixaban 2.5 Mg Tablet) 2.5 mg PO BID [facility] Last Admin: 02/28/24 09:45 Dose: 2.5 mg Documented By: MAXIMILIANO Chlorhexidine Gluconate (Chlorhexidine Gluc Oral Rinse 15 Ml Mouthwash) 15 ml BUCCAL TID [facility] Last Admin: 02/28/24 07:30 Dose: 15 ml Documented By: MAXIMILIANO Levothyroxine Sodium (Levothyroxine Sodium 88 Mcg Tablet) 88 mcg PO DAILY@0600 [facility] Last Admin: 02/28/24 05:30 Dose: Not Given Documented By: NALUX Non-Admin Reason: NPO Sodium Chloride (0.9 % Sodium Chloride Flush 10 Ml Syringe) 10 ml IVFLUSH QSHIFT [facility] Last Admin: 02/28/24 07:15 Dose: 10 ml Documented By: MAXIMILIANO Tetrahydrozoline HCl (Tetrahydrozoline Hcl 0.05% Oph 15 Ml Drpbtl) 1 drop EYE-BOTH QID PRN PRN Reason: Dry Eyes Labs 02/28/24 05:17 02/28/24 05:17 Labs: Laboratory Results - last 24 hr 02/28/24 02/28/24 05:17 05:21 MCV 88.5 MCH 27.9 MCHC 31.6 RDW 15.9 Plt Count 284 MPV 11.1 Immature Gran % (Auto) 0.8 H Neut % (Auto) 80.1 H Lymph % (Auto) 9.2 L [place] % (Auto) 9.6 Eos % (Auto) 0.0 Baso % (Auto) 0.3 Lymph # (Auto) 1.5 [place] # (Auto) 1.6 H Eos # (Auto) 0.0 Baso # (Auto) 0.1 Abs Immat Gran (auto) 0.13 H Absolute Neuts (auto) 13.2 H Absolute Nucleated RBC 0.000 Nucleated RBC % (auto) 0.0 Smear Tech's Comments VERIFIED VBG pH 7.53 H VBG pCO2 29 VBG pO2 51 VBG HCO3 24 VBG O2 Saturation 79.0 VBG Base Excess 2.9 Anion Gap 19 Estim Creat Clear Calc 35.8 Estimated GFR 35 Random Glucose 141 H Calcium 10.1 Phosphorus 5.3 H Magnesium 2.7 H Albumin 3.7 Procedures Date of Service Date of Service: 02/28/24 Progress Note: A&P Assessment and plan (1) Failure to wean from mechanical ventilation: Status: Acute (2) Status post tracheostomy: Status: Acute (3) S/P percutaneous endoscopic gastrostomy (PEG) tube placement: Status: Acute Plan POD #1 S/p trach/PEG tube placement for inability to wean off mechanical ventilation. No acute issues post op. Trach site clean and dry. Abd benign, PEG tube in place, bolster snug. Ok to use PEG tube. Time Spent With Patient Time: Total time managing care of this patient today ____ minutes. Quality Stroke Does the patient have a stroke diagnosis?: No VTE Prior VTE?: No VTE Risk Level:: Medical - moderate - high VTE Device Contraindication: Treatment Not Indicated VTE Drug Contraindication: N/A - Med Ordered
--- NOTE | 2024-02-28 13:01 | P.POSTANES_ITS ---
Post Anesthesia Evaluation Post Anesthesia Evaluation Date of Service: 02/28/24 Vital Signs: Vital Signs Temp Pulse Resp BP Pulse Ox O2 Del Method FiO2 02/28/24 12:06 30 02/28/24 12:00 99.5 F 84 17 114/72 94 Mechanical Ventilation 35 02/28/24 12:00 30 02/28/24 11:05 30 02/28/24 11:00 99.5 F 83 15 118/65 96 Mechanical Ventilation 35 02/28/24 09:57 99.5 F 89 15 135/69 96 Mechanical Ventilation 35 02/28/24 09:45 135/69 02/28/24 08:00 99.5 F 87 18 116/66 94 Room Air 02/28/24 07:36 35 02/28/24 07:23 35 02/28/24 07:00 99.5 F 91 19 119/63 96 Mechanical Ventilation 35 02/28/24 06:00 99.7 F 100 17 112/57 L 97 Mechanical Ventilation 35 02/28/24 05:00 99.7 F 94 18 118/55 L Mechanical Ventilation 40 02/28/24 04:00 99.9 F 94 19 116/56 L 98 Mechanical Ventilation 40 02/28/24 04:00 40 02/28/24 03:37 40 02/28/24 03:00 99.9 F 89 19 106/52 L 93 Mechanical Ventilation 40 02/28/24 02:00 100.0 F 93 20 108/52 L 90 L Mechanical Ventilation 40 Anesthesia: General Anesthesia-Related Issues: No Anes. Related Issues Comments: Patient remains encephalopathic and was unable to participate with post- operative assessment; care as per ICU team. Vital signs stable on ventilatory support via tracheostomy. Anesthesia team to follow-up as necessary.
--- NOTE | 2024-02-28 16:00 | MHC.CM.PN ---
PT REMAINS IN ICU S/P TRACH/PEG, OFF SEDATION. CLINICAL UPDATES SENT TO [facility] VIA [facility]. CM WILL CONTINUE TO FOLLOW FOR ANY CHANGE TO DC PLAN/NEEDS.
[2024-02-28] MEDS: Midazolam HCl/PF 2 MG/2 ML VIAL IVPUSH (22:54)
[2024-02-28] MEDS: Amiodarone/Dextrose 150 MG/100 ML PLAST..BAG 600 MG IV (23:23)
[2024-02-28] MEDS: Amiodarone HCL 900 MG in 0.9 % Sodium Chloride 500 ML 34.53 MG IVCONT (23:39)
[2024-02-29] VITALS (28 sets, daily range): BP systolic 93–167; BP diastolic 46–93; PULSE 68–130; RESP 16–23; TEMP 35–37.7; O2SAT 90–98; BMI 34.5
--- NOTE | 2024-02-29 | ECG_ITS ---
Test Reason : arrhythmia Blood Pressure : / mmHG Vent. Rate : 097 BPM Atrial Rate : 000 BPM P-R Int : 000 ms QRS Dur : 090 ms QT Int : 360 ms P-R-T Axes : 000 -40 172 degrees QTc Int : 457 ms Atrial fibrillation Left axis deviation Left ventricular hypertrophy with repolarization abnormality ( R in aVL ) Inferior infarct (cited on or before 19-FEB-2024) Anteroseptal infarct (cited on or before 19-FEB-2024) Abnormal ECG When compared with ECG of 28-FEB-2024 23:05, Vent. rate has decreased BY 51 BPM Questionable change in initial forces of Septal leads Referred By: Deya Casarez Electronically Signed By:STEVE BOGGS
--- NOTE | 2024-02-29 | PC.NURSE ---
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
[2024-02-29] MEDS: ondansetron HCL 4 MG/2 ML VIAL IVPUSH ×2 (04:53→23:59)
[2024-02-29 05:30] LABS: VBG Base Excess 6.3 mmol/L; VBG HCO3 28 mmol/L (22-26); VBG pCO2 32 mmHg; VBG pH 7.55 (7.32-7.43); VBG pO2 44 mmHg
[2024-02-29 05:31] LABS: Venous Blood Gas Refer to POC result
[2024-02-29 06:12] LABS: Basophils Absolute Auto 0.1 X10*3/uL (0.0-0.2); Basophils Percent Auto 0.3 % (0-2); Eosinophils Absolute Auto 0.1 X10*3/uL (0.0-0.4); Eosinophils Percent Auto 0.5 % (0-4); Hematocrit 33.5 % (42.0-52.0); Hemoglobin 10.9 g/dl (14.0-18.0); Imm Gran Abs Auto 0.09 X10*3/uL (0.00-0.03); Imm Gran Pct Auto 0.6 % (0.0-0.4); Lymphocytes Absolute Auto 1.8 X10*3/uL (1.2-4.9); Lymphocytes Percent Auto 12.1 % (20-40); MANUAL DIFF FLAG SCAN; Mean Corpuscular HGB Conc 32.5 g/dl (31.0-36.0); Mean Corpuscular Hemoglobin 28.5 pg (27.0-33.0); Mean Corpuscular Volume 87.7 fL (80.0-98.0); Mean Platelet Volume 10.5 fL (9.4-12.4); Monocytes Absolute Auto 1.7 X10*3/uL (0.1-1.2); Monocytes Percent Auto 11.3 % (2-11); Neutrophils Absolute Auto 11.1 x10*3/uL (2.0-8.3); Neutrophils Percent Auto 75.2 % (45-73); Platelet Count 295 X10*3/uL (160-400); Red Blood Count 3.82 X10*6/uL (4.60-5.80); Red Cell Distribution Width 15.8 % (11.0-16.0); SCAN SMEAR FLAG 1; White Blood Count 14.8 X10*3/uL (4.8-10.8)
[2024-02-29 06:40] LABS: Albumin Level 3.6 g/dL (3.5-5.0); Anion Gap 22 (12-20); Blood Urea Nitrogen 80 mg/dL (9-16); Calcium 10.3 mg/dL (8.4-10.2); Carbon Dioxide 22 mmol/L (22-29); Chloride 103 mmol/L (96-108); Creatinine Clr Calc Pharmacy 32.5; Estimated Glomerular Filt Rate 31; Glucose Random 130 mg/dL (60-115); Magnesium 2.9 mg/dL (1.6-2.6); Phosphorus 4.4 mg/dL (2.7-4.5); Potassium 3.5 mmol/L (3.3-5.1); Sodium 143 mmol/L (135-145)
[2024-02-29 06:50] LABS: SLIDE REVIEW VERIFIED
[2024-02-29] MEDS: 0.9 % Sodium Chloride Flush 10 ML SYRINGE IVFLUSH ×2 (07:24→16:32)
[2024-02-29] MEDS: amLODIPine Besylate 10 MG TABLET PO (07:52)
[2024-02-29] MEDS: Chlorhexidine Gluc Oral Rinse 15 ML MOUTHWASH BUCCAL ×3 (07:52→20:40)
[2024-02-29] MEDS: Apixaban 2.5 MG TABLET PO ×2 (07:53→20:40)
--- NOTE | 2024-02-29 09:58 | P.PNCC_ITS ---
Subjective Subjective Date of Service: 02/29/24 Interval History: 83-year-old gentleman with underlying paroxysmal AFib on anticoagulation, CAD, congestive heart failure with EF was 45%, chronic renal disease stage III admitted on 02/09/2024 with alteration of mental status and acute hypoxic respiratory failure likely secondary to aspiration event requiring intubation and ventilatory support. Patient started on empiric antibiotics. CT head demonstrated no intracranial bleed. He was admitted to the intensive care unit. Patient initially extubated on 02/11/2024, but required re-intubation 02/12/2024 secondary to ongoing encephalopathy with aspiration. Now status post bronchoscopy with lavage for copious secretions on 02/15/2024. Hospital course further complicated by persistent encephalopathy/hospital-acquired delirium with inability to wean off mechanical ventilation. Now post tracheostomy/gastrostomy on 02/27/2024. No events overnight. Renal function is declining. Critical Care Time (minutes): 60 Physical Exam 2 Vital Signs: Vital Signs: Last Vital Signs Temp 99.3 F 02/29/24 08:56 Pulse 74 02/29/24 08:56 Resp 20 02/29/24 08:56 BP 130/67 02/29/24 08:56 Pulse Ox 97 02/29/24 08:56 O2 Del Method Mechanical Ventil ation 02/29/24 08:56 O2 Flow Rate 30 02/20/24 20:00 FiO2 30 02/29/24 08:56 BMI result Body Mass Index 34.5 Const: General: no acute distress and other (Encephalopathic) Eyes: Sclerae: sclerae normal EOM: EOMs intact bilaterally Neck: Neck: Yes tracheostomy present (On vent) Resp: Effort & Inspection: normal respiratory effort and no respiratory distress Auscultation: clear to auscultation bilaterally Cardio: Rate: regular rate Rhythm: regular rhythm Heart sounds: no gallops, no murmurs and no rubs GI: Inspection: Yes G-tube present Palpation (GI): Soft to palpation and Other GI palpation findings present ( Nontender) Auscultation: normal bowel sounds Extrem: General: No clubbing, No cyanosis and Yes edema (1+ bilateral) Objective Data Labs 02/29/24 05:25 02/29/24 05:25 Labs: Laboratory Results - last 24 hr 02/28/24 02/29/24 02/29/24 05:17 05:21 05:25 WBC 16.4 H 14.8 H RBC 3.83 L 3.82 L Hgb 10.7 L 10.9 L Hct 33.9 L 33.5 L MCV 88.5 87.7 MCH 27.9 28.5 MCHC 31.6 32.5 RDW 15.9 15.8 Plt Count 284 295 MPV 11.1 10.5 Immature Gran % (Auto) 0.8 H 0.6 H Neut % (Auto) 80.1 H 75.2 H Lymph % (Auto) 9.2 L 12.1 L Coke % (Auto) 9.6 11.3 H Eos % (Auto) 0.0 0.5 Baso % (Auto) 0.3 0.3 Lymph # (Auto) 1.5 1.8 Coke # (Auto) 1.6 H 1.7 H Eos # (Auto) 0.0 0.1 Baso # (Auto) 0.1 0.1 Abs Immat Gran (auto) 0.13 H 0.09 H Absolute Neuts (auto) 13.2 H 11.1 H Absolute Nucleated RBC 0.000 0.000 Nucleated RBC % (auto) 0.0 0.0 Smear Tech's Comments VERIFIED VERIFIED VBG pH 7.55 H VBG pCO2 32 VBG pO2 44 VBG HCO3 28 H VBG O2 Saturation 68.0 VBG Base Excess 6.3 Sodium 143 Potassium 3.5 D Chloride 103 Carbon Dioxide 22 Anion Gap 22 H BUN 80 H Creatinine 2.03 H Estim Creat Clear Calc 32.5 Estimated GFR 31 Random Glucose 130 H Calcium 10.3 H Phosphorus 4.4 Magnesium 2.9 H Albumin 3.6 Microbiology Microbiology Results: Microbiology 02/12/24 14:34 Blood - Venous Blood Culture - Final No growth after 5 days. 02/12/24 14:34 Blood - Venous Blood Culture - Final No growth after 5 days. 02/09/24 13:28 Blood - Venous Blood Culture - Final No growth after 5 days. 02/09/24 13:28 Blood - Venous Blood Culture - Final Haemophilus influenzae Progress Note: A&P Assessment and plan (1) S/P percutaneous endoscopic gastrostomy (PEG) tube placement: Status: Acute (2) Status post tracheostomy: Status: Acute (3) Failure to wean from mechanical ventilation: Status: Acute (4) Encephalopathy: Status: Acute (5) Atrial fibrillation: Status: Acute (6) Cardiomyopathy: Status: Acute Plan Assessment: 83-year-old gentleman admitted with acute hypoxic respiratory failure and alteration of mental status likely secondary to aspiration event now with inability to wean from ventilatory support. Plan: Neuro: Hospital-acquired delirium/unspecified encephalopathy with poor improvement despite prolonged sedation vacation and essentially normal brain imaging. Cardiac: No acute issues. Underlying systolic congestive heart failure and AFib, chronic. Pulmonary: Acute hypoxic respiratory failure now requiring ventilatory support, with failure to wean from mechanical ventilation. Status post tracheostomy/parenteral gastrostomy on 02/27/2024. Continue to titrate off as tolerated. Renal: Slowly worsening renal function, non oliguric. Continue to monitor renal indices and urine output. Endo: No acute issues. GI: No acute issues. ID: No acute issues. Heme/Onc: No acute issues. Psych: No acute issues. Miscellaneous: No acute issues. Prophylaxis: Apixaban Diet: Tube feeds Critical care time spent: 60 minutes Quality Stroke Does the patient have a stroke diagnosis?: No VTE Prior VTE?: No VTE Risk Level:: Medical - moderate - high VTE Device Contraindication: Treatment Not Indicated VTE Drug Contraindication: N/A - Med Ordered
--- NOTE | 2024-02-29 10:21 | MHC.CLN ---
F/U PT S/P TRACH/PEG DISCUSSED AT ROUNDS WITH PT RECEIVING PROMOTE AT MAX GOAL RATE 85ML/HR WITH 120ML FREE WATER FLUSHES Q 8 HRS TO PROVIDE 2040KCALS (23KCALS/KG BASED ON CMW), 127.5G PROTEIN (1.4G/KG), 2071ML TOTAL FREE WATER FROM FORMULA AND FLUSHES (24ML/KG BASED ON CMW) REVIEWED LABS AND RENAL FUNCTION DECLINING RECOMMEND CHANGING TF FORMULA NEPRO TO MAX GOAL RATE 45ML/HR TO PROVIDE 1944KCALS (23KCALS/KG BASED ON CMW), 87G PROTEIN (1.0G/KG), 785ML TOTAL FREE WATER FROM FORMULA AND FLUSHES MONITOR TOLERANCE AND LYTES
[2024-02-29] MEDS: propofoL 200 MG/20 ML VIAL 50 MG IVPUSH (10:33)
--- NOTE | 2024-02-29 11:46 | MHC.CM.PN ---
Pt is s/p peg/trach placement: Propofol d/c'd and vent settings adjusted. Clinical updates remitted to [facility] in anticipation of a transfer in the next few days if facility medical affairs specialist approves. CM to follow
--- NOTE | 2024-02-29 13:10 | PM.CCN ---
Critical Care Event Note Summary Date of Service: 02/29/24 Code activated: No Narrative: After turning patient lost volumes on the ventilatory support. Unable to advance catheter through tracheostomy. Bedside bronchoscopy through tracheostomy with visualization of tissue occluding tracheostomy. Bedside bronchoscopy through nasopharynx with no tracheostomy tube visualized in the tracheal lumen. Patient intubated with an ET tube with appropriate return volumes on ventilatory support. Surgeon notified of extratracheal location of tracheostomy. Critical Care Time (minutes): 45
--- NOTE | 2024-02-29 13:36 | HO.ANESPROP2 ---
HPI - Anesthesia Eval Consult details Narrative: for redo trach PMFSH Active Problems Active Problems: All Active Problems S/P percutaneous endoscopic gastrostomy (PEG) tube placement (Acute) Status post tracheostomy (Acute) Failure to wean from mechanical ventilation (Acute) Delirium (Acute) Encephalopathy (Acute) Atrial fibrillation (Acute) Coronary artery disease (Acute) Acute respiratory failure with hypoxia (Acute) Aspiration pneumonia (Acute) Altered mental status (Acute) Sepsis (Acute) Pneumonia (Acute) Cardiomyopathy (Acute) Nonrheumatic aortic (valve) stenosis (Acute) Atherosclerotic cardiovascular disease (Acute) PAF (paroxysmal atrial fibrillation) (Acute) LLQ abdominal pain (Acute) NSTEMI (non-ST elevated myocardial infarction) (Acute) Chest pain (Acute) Hyperkalemia (Acute) Atrial flutter with rapid ventricular response (Acute) CKD (chronic kidney disease) (Acute) PRABHU (acute kidney injury) (Acute) Renal stone (Acute) Ureteral stone with hydronephrosis (Acute) Influenza B (Acute) Murmur, heart (Acute) HTN (hypertension) (Acute) Sleep apnea (Acute) Elevated PSA (Acute) BPH loc w urin obs/LUTS (Acute) Past Medical History Medical History Atherosclerotic cardiovascular disease PAF (paroxysmal atrial fibrillation) NSTEMI (non-ST elevated myocardial infarction) Chronic renal disease, stage 3, moderately decreased glomerular filtration rate (GFR) between 30-59 mL/min/1.73 square meter Chest pain Heart failure Thyroid disease GERD (gastroesophageal reflux disease) On anticoagulant therapy COVID-19 vaccine series completed Symptomatic cholelithiasis HTN (hypertension) Hyperlipidemia Atrial fibrillation Sleep apnea Elevated PSA Facet arthropathy, cervical BPH loc w urin obs/LUTS Family History Family History Unknown No problems noted. Family history of problems with anesthesia: No Surgical History Surgical History S/P laparoscopic cholecystectomy Hx of cataract extraction History of total replacement of both hip joints Hx of cystoscopy H/O colonoscopy History of surgery History of Problems with Anesthesia: No Social History Social History Household Members: Unknown / Unable to assess Housing: Unknown / Unable to assess Are you a primary customer care associate to a significant other at home: No Alcohol intake: never Comment: COUNTS CORRECT Patient Tobacco Use Status: Tobacco use Unknown Advance Directives Date on File: 07/08/22 service: No Current occupational status: retired Meds Allergies Allergy/AdvReac Type Severity Reaction Status Date / Time ibuprofen [IBUPROFEN] Allergy Intermediate HIVES Verified 02/09/24 13:22 hydromorphone [From DILAUDID] AdvReac Intermediate ILEUS Verified 02/09/24 13:22 procaine [From Novocain] AdvReac Intermediate has no Verified 02/09/24 13:22 numbing effect-states monocain works narcotic pain meds AdvReac Intermediate does not Uncoded 05/11/23 15:08 relieve pain per patient Active Medications: Current Medications Acetaminophen (Acetaminophen 325 Mg Tablet) 975 mg PO Q6H PRN PRN Reason: Fever >100.4 Amlodipine Besylate (Amlodipine Besylate 10 Mg Tablet) 10 mg PO DAILY [facility]; Protocol Last Admin: 02/29/24 07:52 Dose: 10 mg Apixaban (Apixaban 2.5 Mg Tablet) 2.5 mg PO BID [facility] Last Admin: 02/29/24 07:53 Dose: 2.5 mg Chlorhexidine Gluconate (Chlorhexidine Gluc Oral Rinse 15 Ml Mouthwash) 15 ml BUCCAL TID [facility] Last Admin: 02/29/24 07:52 Dose: 15 ml Amiodarone HCl 900 mg/ Sodium (Chloride) 518 mls @ 34.533 mls/hr IVCONT .Q15H1M [facility]; Protocol Last Infusion: 02/29/24 12:20 Dose: 0.5 mg/min, 17.27 mls/hr Propofol (Diprivan) 1,000 mg in 100 mls @ 0 mls/hr IVCONT .Q0M [facility]; Protocol Levothyroxine Sodium (Levothyroxine Sodium 88 Mcg Tablet) 88 mcg PO DAILY@0600 [facility] Last Admin: 02/29/24 05:34 Dose: Not Given Ondansetron HCl (Ondansetron Hcl 4 Mg/2 Ml Vial) 4 mg IVPUSH Q6H PRN PRN Reason: Nausea and Vomiting Last Admin: 02/29/24 04:53 Dose: 4 mg Sodium Chloride (0.9 % Sodium Chloride Flush 10 Ml Syringe) 10 ml IVFLUSH QSHIFT AIDAN Last Admin: 02/29/24 07:24 Dose: 10 ml Tetrahydrozoline HCl (Tetrahydrozoline Hcl 0.05% Oph 15 Ml Drpbtl) 1 drop EYE-BOTH QID PRN PRN Reason: Dry Eyes Home Medications ?Medication ?Instructions ?Recorded ?Confirmed ?Last Taken ?Type levothyroxine 88 mcg tablet 88 mcg PO DAILY 11/12/20 02/09/24 07/07/22 History amlodipine 2.5 mg tablet 2.5 mg PO DAILY 02/15/22 02/09/24 07/07/22 History apixaban 2.5 mg tablet (Eliquis) 2.5 mg PO BID 05/11/23 02/09/24 Unknown History atorvastatin 80 mg tablet 80 mg PO DAILY 05/11/23 02/09/24 Unknown History oxybutynin chloride 10 mg 10 mg PO DAILY 05/11/23 02/09/24 Unknown History tablet,extended release 24 hr pantoprazole 40 mg tablet,delayed 40 mg PO DAILY 05/11/23 02/09/24 Unknown History release amiodarone 200 mg tablet 100 mg PO DAILY 08/03/23 02/09/24 Unknown History Exam Height,Weight and Vital Signs: Height 5 ft 9 in Weight 106.1 kg Last Vital Signs Temp 99.3 F 02/29/24 13:00 Pulse 84 02/29/24 13:00 Resp 16 02/29/24 13:00 BP 137/63 02/29/24 13:00 Pulse Ox 97 02/29/24 13:00 O2 Del Method Mechanical Ventilation 02/29/24 13:00 O2 Flow Rate 30 02/20/24 20:00 FiO2 30 02/29/24 13:00 Pertinent Lab Results Pertinent Lab Results: Laboratory Tests 02/09/24 02/09/24 02/09/24 13:28 13:46 17:09 WBC 15.1 H RBC 4.67 Hgb 13.5 L Hct 40.7 L MCV 87.2 MCH 28.9 MCHC 33.2 RDW 15.3 Plt Count 160 D MPV 9.8 Immature Gran % (Auto) 0.6 H Neut % (Auto) 81.6 H Lymph % (Auto) 4.4 L Grady % (Auto) 13.2 H Eos % (Auto) 0.0 Baso % (Auto) 0.2 Lymph # (Auto) 0.7 L [place] # (Auto) 2.0 H Eos # (Auto) 0.0 Baso # (Auto) 0.0 Abs Immat Gran (auto) 0.09 H Absolute Neuts (auto) 12.3 H Absolute Nucleated RBC 0.000 Nucleated RBC % (auto) 0.0 Neutrophils % (Manual) Band Neutrophils % Lymphocytes % (Manual) Atypical Lymphs % (Man) Monocytes % (Manual) Eosinophils % (Manual) Basophils % (Manual) Metamyelocytes % Myelocytes % Abs Neuts (Manual) Lymphocytes # (Manual) Atyp Lymphs # (Manual) Monocytes # (Manual) Eosinophils # (Manual) Basophils # (Manual) Metamyelocytes # Myelocytes # Toxic Vacuolation Platelet Estimate Large Platelets Plt Morphology Comment RBC Morphology Polychromasia Ovalocytes Maury Cells Acanthocytes (Spur) Schistocytes Smear Tech's Comments VERIFIED PT 15.5 H INR 1.3 H APTT 37.0 H Hold Blue Top VBG pH VBG pCO2 VBG pO2 VBG HCO3 VBG O2 Saturation VBG Base Excess Sodium 138 Potassium 4.3 Chloride 103 Carbon Dioxide 19 L Anion Gap 20 BUN 19 H Creatinine 1.56 H Estim Creat Clear Calc 45.0 Estimated GFR 43 POC Glucose Random Glucose 175 H Lactic Acid 4.3 H* Lactic Acid F/U @ 2Hr 2.4 H* Lactic Acid F/U @ 4Hr Calcium 9.0 Phosphorus Magnesium 1.7 Total Bilirubin 1.5 H AST 22 ALT 11 Alkaline Phosphatase 85 Troponin I High Sens 1352.2 H* D 3367.4 H* D Total Protein 7.2 Albumin 3.6 TSH Urine Color Yellow Urine Appearance Clear Urine pH 6.5 Ur Specific [place] 1.015 Urine Protein 300 (3+) H Urine Glucose (UA) Negative Urine Ketones 15 Urine Blood Large (3+) H Urine Nitrite Negative Ur Leukocyte Esterase Negative Urine RBC >20 H Urine WBC 0-5 Ur Squamous Epith Cells 0-2 Urine Bacteria None Seen Hyaline Casts 0-2 Nasal Screen MRSA (PCR) Nasal S. aureus Screen Nasal MRSA/S.aureus Interp Influenza Type A (PCR) NEGATIVE Influenza Type B (PCR) NEGATIVE RSV RNA Qual (PCR) NEGATIVE SARS-CoV-2 RNA (RT-PCR) NEGATIVE 02/09/24 02/09/24 02/10/24 17:13 19:37 04:36 WBC RBC Hgb Hct MCV MCH MCHC RDW Plt Count MPV Immature Gran % (Auto) Neut % (Auto) Lymph % (Auto) [place] % (Auto) Eos % (Auto) Baso % (Auto) Lymph # (Auto) [place] # (Auto) Eos # (Auto) Baso # (Auto) Abs Immat Gran (auto) Absolute Neuts (auto) Absolute Nucleated RBC Nucleated RBC % (auto) Neutrophils % (Manual) Band Neutrophils % Lymphocytes % (Manual) Atypical Lymphs % (Man) Monocytes % (Manual) Eosinophils % (Manual) Basophils % (Manual) Metamyelocytes % Myelocytes % Abs Neuts (Manual) Lymphocytes # (Manual) Atyp Lymphs # (Manual) Monocytes # (Manual) Eosinophils # (Manual) Basophils # (Manual) Metamyelocytes # Myelocytes # Toxic Vacuolation Platelet Estimate Large Platelets Plt Morphology Comment RBC Morphology Polychromasia Ovalocytes [place] Cells Acanthocytes (Spur) Schistocytes Smear Tech's Comments PT INR APTT Hold Blue Top VBG pH 7.42 7.55 H VBG pCO2 34 24 VBG pO2 64 48 VBG HCO3 22 21 L VBG O2 Saturation 89.0 80.0 VBG Base Excess -1.3 0.9 Sodium Potassium Chloride Carbon Dioxide Anion Gap BUN Creatinine Estim Creat Clear Calc Estimated GFR POC Glucose Random Glucose Lactic Acid Lactic Acid F/U @ 2Hr Lactic Acid F/U @ 4Hr 2.3 H* Calcium Phosphorus Magnesium Total Bilirubin AST ALT Alkaline Phosphatase Troponin I High Sens Total Protein Albumin TSH Urine Color Urine Appearance Urine pH Ur Specific [place] Urine Protein Urine Glucose (UA) Urine Ketones Urine Blood Urine Nitrite Ur Leukocyte Esterase Urine RBC Urine WBC Ur Squamous Epith Cells Urine Bacteria Hyaline Casts Nasal Screen MRSA (PCR) Nasal S. aureus Screen Nasal MRSA/S.aureus Interp Influenza Type A (PCR) Influenza Type B (PCR) RSV RNA Qual (PCR) SARS-CoV-2 RNA (RT-PCR) 02/10/24 02/10/24 02/10/24 04:40 07:14 07:15 WBC 10.6 RBC 4.66 Hgb 13.3 L Hct 41.1 L MCV 88.2 MCH 28.5 MCHC 32.4 RDW 15.7 Plt Count 129 L MPV 10.8 Immature Gran % (Auto) Cancelled Neut % (Auto) Cancelled Lymph % (Auto) Cancelled [place] % (Auto) Cancelled Eos % (Auto) Cancelled Baso % (Auto) Cancelled Lymph # (Auto) Cancelled [place] # (Auto) Cancelled Eos # (Auto) Cancelled Baso # (Auto) Cancelled Abs Immat Gran (auto) Cancelled Absolute Neuts (auto) Cancelled Absolute Nucleated RBC 0.000 Nucleated RBC % (auto) 0.0 Neutrophils % (Manual) 58 Band Neutrophils % 28 H Lymphocytes % (Manual) 11 L Atypical Lymphs % (Man) Monocytes % (Manual) 2 Eosinophils % (Manual) Basophils % (Manual) Metamyelocytes % 1 Myelocytes % Abs Neuts (Manual) 9.1 H Lymphocytes # (Manual) 1.2 Atyp Lymphs # (Manual) Monocytes # (Manual) 0.2 Eosinophils # (Manual) Basophils # (Manual) Metamyelocytes # 0.1 Myelocytes # Toxic Vacuolation PRESENT Platelet Estimate SLIGHTLY DECREASED Large Platelets Plt Morphology Comment NORMAL RBC Morphology NOTED Polychromasia 1+ (0-2) Ovalocytes Maury Cells 3+ (>5) Acanthocytes (Spur) 2+ (3-5) Schistocytes 3+ (>5) Smear Tech's Comments PT INR APTT Hold Blue Top VBG pH VBG pCO2 VBG pO2 VBG HCO3 VBG O2 Saturation VBG Base Excess Sodium 139 Potassium 3.7 Chloride 105 Carbon Dioxide 22 Anion Gap 16 BUN 22 H Creatinine 1.55 H Estim Creat Clear Calc 45.8 Estimated GFR 43 POC Glucose Random Glucose 107 Lactic Acid Lactic Acid F/U @ 2Hr Lactic Acid F/U @ 4Hr Calcium 8.7 Phosphorus 2.8 Magnesium 1.7 Total Bilirubin 1.5 H AST 18 ALT 11 Alkaline Phosphatase 62 Troponin I High Sens 837.8 H* D Total Protein 6.2 L Albumin 3.1 L TSH Urine Color Urine Appearance Urine pH Ur Specific [place] Urine Protein Urine Glucose (UA) Urine Ketones Urine Blood Urine Nitrite Ur Leukocyte Esterase Urine RBC Urine WBC Ur Squamous Epith Cells Urine Bacteria Hyaline Casts Nasal Screen MRSA (PCR) Nasal S. aureus Screen Nasal MRSA/S.aureus Interp Influenza Type A (PCR) Influenza Type B (PCR) RSV RNA Qual (PCR) SARS-CoV-2 RNA (RT-PCR) 02/11/24 02/11/24 02/12/24 04:46 04:48 05:25 WBC 8.9 RBC 4.14 L Hgb 11.7 L Hct 35.7 L MCV 86.2 MCH 28.3 MCHC 32.8 RDW 15.2 Plt Count 129 L MPV 10.4 Immature Gran % (Auto) 0.6 H Neut % (Auto) 80.8 H Lymph % (Auto) 8.3 L [place] % (Auto) 9.0 Eos % (Auto) 0.9 Baso % (Auto) 0.4 Lymph # (Auto) 0.7 L [place] # (Auto) 0.8 Eos # (Auto) 0.1 Baso # (Auto) 0.0 Abs Immat Gran (auto) 0.05 H Absolute Neuts (auto) 7.2 Absolute Nucleated RBC 0.000 Nucleated RBC % (auto) 0.0 Neutrophils % (Manual) Band Neutrophils % Lymphocytes % (Manual) Atypical Lymphs % (Man) Monocytes % (Manual) Eosinophils % (Manual) Basophils % (Manual) Metamyelocytes % Myelocytes % Abs Neuts (Manual) Lymphocytes # (Manual) Atyp Lymphs # (Manual) Monocytes # (Manual) Eosinophils # (Manual) Basophils # (Manual) Metamyelocytes # Myelocytes # Toxic Vacuolation Platelet Estimate Large Platelets Plt Morphology Comment RBC Morphology Polychromasia Ovalocytes Maury Cells Acanthocytes (Spur) Schistocytes Smear Tech's Comments PT INR APTT Hold Blue Top VBG pH 7.51 H 7.46 H VBG pCO2 29 33 VBG pO2 56 47 VBG HCO3 23 24 VBG O2 Saturation 85.0 76.0 VBG Base Excess 1.4 0.7 Sodium 139 Potassium 3.7 Chloride 106 Carbon Dioxide 22 Anion Gap 15 BUN 27 H Creatinine 1.29 Estim Creat Clear Calc 55.0 Estimated GFR 53 POC Glucose Random Glucose 108 Lactic Acid Lactic Acid F/U @ 2Hr Lactic Acid F/U @ 4Hr Calcium 8.4 Phosphorus 2.8 Magnesium 1.9 Total Bilirubin AST ALT Alkaline Phosphatase Troponin I High Sens Total Protein Albumin 2.9 L TSH Urine Color Urine Appearance Urine pH Ur Specific [place] Urine Protein Urine Glucose (UA) Urine Ketones Urine Blood Urine Nitrite Ur Leukocyte Esterase Urine RBC Urine WBC Ur Squamous Epith Cells Urine Bacteria Hyaline Casts Nasal Screen MRSA (PCR) Nasal S. aureus Screen Nasal MRSA/S.aureus Interp Influenza Type A (PCR) Influenza Type B (PCR) RSV RNA Qual (PCR) SARS-CoV-2 RNA (RT-PCR) 02/12/24 02/12/24 02/12/24 05:27 11:09 12:15 WBC 7.8 RBC 3.11 L D Hgb 9.1 L D Hct 27.4 L D MCV 88.1 MCH 29.3 MCHC 33.2 RDW 15.4 Plt Count 133 L MPV 10.6 Immature Gran % (Auto) 0.5 H Neut % (Auto) 85.2 H Lymph % (Auto) 7.1 L [place] % (Auto) 6.7 Eos % (Auto) 0.4 Baso % (Auto) 0.1 Lymph # (Auto) 0.6 L [place] # (Auto) 0.5 Eos # (Auto) 0.0 Baso # (Auto) 0.0 Abs Immat Gran (auto) 0.04 H Absolute Neuts (auto) 6.6 Absolute Nucleated RBC 0.000 Nucleated RBC % (auto) 0.0 Neutrophils % (Manual) Band Neutrophils % Lymphocytes % (Manual) Atypical Lymphs % (Man) Monocytes % (Manual) Eosinophils % (Manual) Basophils % (Manual) Metamyelocytes % Myelocytes % Abs Neuts (Manual) Lymphocytes # (Manual) Atyp Lymphs # (Manual) Monocytes # (Manual) Eosinophils # (Manual) Basophils # (Manual) Metamyelocytes # Myelocytes # Toxic Vacuolation Platelet Estimate Large Platelets Plt Morphology Comment RBC Morphology Polychromasia Ovalocytes [place] Cells Acanthocytes (Spur) Schistocytes Smear Tech's Comments PT INR APTT Hold Blue Top VBG pH VBG pCO2 VBG pO2 VBG HCO3 VBG O2 Saturation VBG Base Excess Sodium 145 146 H Potassium 4.0 3.1 L D Chloride 109 H 110 H Carbon Dioxide 22 24 Anion Gap 18 15 BUN 32 H 33 H Creatinine 1.38 1.29 Estim Creat Clear Calc 50.6 54.1 Estimated GFR 49 53 POC Glucose 118 H Random Glucose 125 H 116 H Lactic Acid Lactic Acid F/U @ 2Hr Lactic Acid F/U @ 4Hr Calcium 9.1 D 9.1 Phosphorus 3.1 2.4 L Magnesium 2.0 2.1 Total Bilirubin AST ALT Alkaline Phosphatase Troponin I High Sens Total Protein Albumin 3.7 TSH Urine Color Urine Appearance Urine pH Ur Specific [place] Urine Protein Urine Glucose (UA) Urine Ketones Urine Blood Urine Nitrite Ur Leukocyte Esterase Urine RBC Urine WBC Ur Squamous Epith Cells Urine Bacteria Hyaline Casts Nasal Screen MRSA (PCR) Nasal S. aureus Screen Nasal MRSA/S.aureus Interp Influenza Type A (PCR) Influenza Type B (PCR) RSV RNA Qual (PCR) SARS-CoV-2 RNA (RT-PCR) 02/12/24 02/13/24 02/13/24 17:03 00:35 00:53 WBC RBC Hgb Hct MCV MCH MCHC RDW Plt Count MPV Immature Gran % (Auto) Neut % (Auto) Lymph % (Auto) [place] % (Auto) Eos % (Auto) Baso % (Auto) Lymph # (Auto) [place] # (Auto) Eos # (Auto) Baso # (Auto) Abs Immat Gran (auto) Absolute Neuts (auto) Absolute Nucleated RBC Nucleated RBC % (auto) Neutrophils % (Manual) Band Neutrophils % Lymphocytes % (Manual) Atypical Lymphs % (Man) Monocytes % (Manual) Eosinophils % (Manual) Basophils % (Manual) Metamyelocytes % Myelocytes % Abs Neuts (Manual) Lymphocytes # (Manual) Atyp Lymphs # (Manual) Monocytes # (Manual) Eosinophils # (Manual) Basophils # (Manual) Metamyelocytes # Myelocytes # Toxic Vacuolation Platelet Estimate Large Platelets Plt Morphology Comment RBC Morphology Polychromasia Ovalocytes [place] Cells Acanthocytes (Spur) Schistocytes Smear Tech's Comments PT INR APTT Hold Blue Top SEE NOTE VBG pH VBG pCO2 VBG pO2 VBG HCO3 VBG O2 Saturation VBG Base Excess Sodium 147 H Potassium 3.0 L Chloride 109 H Carbon Dioxide 26 Anion Gap 15 BUN 36 H Creatinine 1.49 H Estim Creat Clear Calc 46.8 Estimated GFR 45 POC Glucose 96 100 Random Glucose 101 Lactic Acid Lactic Acid F/U @ 2Hr Lactic Acid F/U @ 4Hr Calcium 9.5 Phosphorus 2.9 Magnesium 2.3 Total Bilirubin 1.5 H AST 54 H ALT 30 Alkaline Phosphatase 60 Troponin I High Sens 111.8 H* D Total Protein 7.1 Albumin 3.5 TSH 2.28 Urine Color Urine Appearance Urine pH Ur Specific [place] Urine Protein Urine Glucose (UA) Urine Ketones Urine Blood Urine Nitrite Ur Leukocyte Esterase Urine RBC Urine WBC Ur Squamous Epith Cells Urine Bacteria Hyaline Casts Nasal Screen MRSA (PCR) Nasal S. aureus Screen Nasal MRSA/S.aureus Interp Influenza Type A (PCR) Influenza Type B (PCR) RSV RNA Qual (PCR) SARS-CoV-2 RNA (RT-PCR) 02/13/24 02/13/24 02/13/24 05:46 05:47 07:19 WBC 8.1 RBC 3.37 L Hgb 9.7 L Hct 29.8 L MCV 88.4 MCH 28.8 MCHC 32.6 RDW 15.7 Plt Count 162 MPV 10.4 Immature Gran % (Auto) 2.2 H Neut % (Auto) 73.6 H Lymph % (Auto) 12.0 L [place] % (Auto) 9.7 Eos % (Auto) 2.1 Baso % (Auto) 0.4 Lymph # (Auto) 1.0 L [place] # (Auto) 0.8 Eos # (Auto) 0.2 Baso # (Auto) 0.0 Abs Immat Gran (auto) 0.18 H Absolute Neuts (auto) 6.0 Absolute Nucleated RBC 0.000 Nucleated RBC % (auto) 0.0 Neutrophils % (Manual) Band Neutrophils % Lymphocytes % (Manual) Atypical Lymphs % (Man) Monocytes % (Manual) Eosinophils % (Manual) Basophils % (Manual) Metamyelocytes % Myelocytes % Abs Neuts (Manual) Lymphocytes # (Manual) Atyp Lymphs # (Manual) Monocytes # (Manual) Eosinophils # (Manual) Basophils # (Manual) Metamyelocytes # Myelocytes # Toxic Vacuolation Platelet Estimate Large Platelets Plt Morphology Comment RBC Morphology Polychromasia Ovalocytes Maury Cells Acanthocytes (Spur) Schistocytes Smear Tech's Comments PT INR APTT Hold Blue Top VBG pH 7.43 VBG pCO2 38 VBG pO2 40 VBG HCO3 25 VBG O2 Saturation 62.0 VBG Base Excess 1.5 Sodium 147 H Potassium 3.2 L Chloride 110 H Carbon Dioxide 23 Anion Gap 17 BUN 35 H Creatinine 1.34 Estim Creat Clear Calc 52.1 Estimated GFR 51 POC Glucose Random Glucose 99 Lactic Acid Lactic Acid F/U @ 2Hr Lactic Acid F/U @ 4Hr Calcium 9.1 Phosphorus 2.8 Magnesium 2.3 Total Bilirubin AST ALT Alkaline Phosphatase Troponin I High Sens 86.7 H Total Protein Albumin TSH Urine Color Urine Appearance Urine pH Ur Specific [place] Urine Protein Urine Glucose (UA) Urine Ketones Urine Blood Urine Nitrite Ur Leukocyte Esterase Urine RBC Urine WBC Ur Squamous Epith Cells Urine Bacteria Hyaline Casts Nasal Screen MRSA (PCR) Nasal S. aureus Screen Nasal MRSA/S.aureus Interp Influenza Type A (PCR) Influenza Type B (PCR) RSV RNA Qual (PCR) SARS-CoV-2 RNA (RT-PCR) 02/13/24 02/14/24 02/14/24 07:27 05:13 05:16 WBC 7.8 RBC 3.20 L Hgb 9.5 L Hct 28.4 L MCV 88.8 MCH 29.7 MCHC 33.5 RDW 16.1 H Plt Count 175 MPV 10.5 Immature Gran % (Auto) 5.0 H Neut % (Auto) 61.7 Lymph % (Auto) 17.0 L [place] % (Auto) 12.1 H Eos % (Auto) 3.7 Baso % (Auto) 0.5 Lymph # (Auto) 1.3 [place] # (Auto) 0.9 Eos # (Auto) 0.3 Baso # (Auto) 0.0 Abs Immat Gran (auto) 0.39 H Absolute Neuts (auto) 4.8 Absolute Nucleated RBC 0.040 H Nucleated RBC % (auto) 0.5 H Neutrophils % (Manual) Band Neutrophils % Lymphocytes % (Manual) Atypical Lymphs % (Man) Monocytes % (Manual) Eosinophils % (Manual) Basophils % (Manual) Metamyelocytes % Myelocytes % Abs Neuts (Manual) Lymphocytes # (Manual) Atyp Lymphs # (Manual) Monocytes # (Manual) Eosinophils # (Manual) Basophils # (Manual) Metamyelocytes # Myelocytes # Toxic Vacuolation Platelet Estimate Large Platelets Plt Morphology Comment RBC Morphology Polychromasia Ovalocytes [place] Cells Acanthocytes (Spur) Schistocytes Smear Tech's Comments PT INR APTT Hold Blue Top VBG pH 7.53 H VBG pCO2 29 VBG pO2 41 VBG HCO3 24 VBG O2 Saturation 70.0 VBG Base Excess 2.4 Sodium 146 H Potassium 3.4 Chloride 112 H Carbon Dioxide 22 Anion Gap 15 BUN 32 H Creatinine 1.44 H Estim Creat Clear Calc 48.5 Estimated GFR 47 POC Glucose 100 Random Glucose 115 Lactic Acid Lactic Acid F/U @ 2Hr Lactic Acid F/U @ 4Hr Calcium 8.7 Phosphorus 2.9 Magnesium 2.2 Total Bilirubin AST ALT Alkaline Phosphatase Troponin I High Sens Total Protein Albumin TSH Urine Color Urine Appearance Urine pH Ur Specific [place] Urine Protein Urine Glucose (UA) Urine Ketones Urine Blood Urine Nitrite Ur Leukocyte Esterase Urine RBC Urine WBC Ur Squamous Epith Cells Urine Bacteria Hyaline Casts Nasal Screen MRSA (PCR) Nasal S. aureus Screen Nasal MRSA/S.aureus Interp Influenza Type A (PCR) Influenza Type B (PCR) RSV RNA Qual (PCR) SARS-CoV-2 RNA (RT-PCR) 02/14/24 02/15/24 02/15/24 16:40 04:27 04:37 WBC 6.7 RBC 3.08 L Hgb 8.9 L Hct 27.3 L MCV 88.6 MCH 28.9 MCHC 32.6 RDW 16.5 H Plt Count 208 MPV 10.3 Immature Gran % (Auto) Cancelled Neut % (Auto) Cancelled Lymph % (Auto) Cancelled [place] % (Auto) Cancelled Eos % (Auto) Cancelled Baso % (Auto) Cancelled Lymph # (Auto) Cancelled [place] # (Auto) Cancelled Eos # (Auto) Cancelled Baso # (Auto) Cancelled Abs Immat Gran (auto) Cancelled Absolute Neuts (auto) Cancelled Absolute Nucleated RBC 0.060 H Nucleated RBC % (auto) 0.9 H Neutrophils % (Manual) 55 Band Neutrophils % 2 L Lymphocytes % (Manual) 14 L Atypical Lymphs % (Man) Monocytes % (Manual) 21 H Eosinophils % (Manual) 4 Basophils % (Manual) 1 Metamyelocytes % 2 Myelocytes % 1 Abs Neuts (Manual) 3.8 Lymphocytes # (Manual) 0.9 L Atyp Lymphs # (Manual) Monocytes # (Manual) 1.4 H Eosinophils # (Manual) 0.3 Basophils # (Manual) 0.1 Metamyelocytes # 0.1 Myelocytes # 0.1 Toxic Vacuolation PRESENT Platelet Estimate NORMAL Large Platelets Plt Morphology Comment NORMAL RBC Morphology NOTED Polychromasia Ovalocytes 1+ (5-14) [place] Cells 1+ (0-2) Acanthocytes (Spur) 1+ (0-2) Schistocytes Smear Tech's Comments PT INR APTT Hold Blue Top VBG pH 7.56 H VBG pCO2 26 VBG pO2 53 VBG HCO3 24 VBG O2 Saturation 88.0 VBG Base Excess 2.8 Sodium 146 H Potassium 3.4 Chloride 111 H Carbon Dioxide 22 Anion Gap 16 BUN 32 H Creatinine 1.57 H Estim Creat Clear Calc 44.0 Estimated GFR 42 POC Glucose Random Glucose 126 H Lactic Acid Lactic Acid F/U @ 2Hr Lactic Acid F/U @ 4Hr Calcium 8.9 Phosphorus 3.2 Magnesium 2.2 Total Bilirubin AST ALT Alkaline Phosphatase Troponin I High Sens Total Protein Albumin TSH Urine Color Urine Appearance Urine pH Ur Specific [place] Urine Protein Urine Glucose (UA) Urine Ketones Urine Blood Urine Nitrite Ur Leukocyte Esterase Urine RBC Urine WBC Ur Squamous Epith Cells Urine Bacteria Hyaline Casts Nasal Screen MRSA (PCR) NEGATIVE Nasal S. aureus Screen NEGATIVE Nasal MRSA/S.aureus Interp SEE NOTE Influenza Type A (PCR) Influenza Type B (PCR) RSV RNA Qual (PCR) SARS-CoV-2 RNA (RT-PCR) 02/15/24 02/16/24 02/16/24 18:23 04:43 04:56 WBC 8.5 RBC 3.59 L Hgb 10.3 L Hct 31.3 L MCV 87.2 MCH 28.7 MCHC 32.9 RDW 16.4 H Plt Count 205 MPV 9.7 Immature Gran % (Auto) Cancelled Neut % (Auto) Cancelled Lymph % (Auto) Cancelled [place] % (Auto) Cancelled Eos % (Auto) Cancelled Baso % (Auto) Cancelled Lymph # (Auto) Cancelled [place] # (Auto) Cancelled Eos # (Auto) Cancelled Baso # (Auto) Cancelled Abs Immat Gran (auto) Cancelled Absolute Neuts (auto) Cancelled Absolute Nucleated RBC 0.040 H Nucleated RBC % (auto) 0.5 H Neutrophils % (Manual) 44 L Band Neutrophils % 10 H Lymphocytes % (Manual) 12 L Atypical Lymphs % (Man) 3 Monocytes % (Manual) 23 H Eosinophils % (Manual) 4 Basophils % (Manual) 1 Metamyelocytes % 2 Myelocytes % 1 Abs Neuts (Manual) 4.6 Lymphocytes # (Manual) 1.0 L Atyp Lymphs # (Manual) 0.3 Monocytes # (Manual) 2.0 H Eosinophils # (Manual) 0.3 Basophils # (Manual) 0.1 Metamyelocytes # 0.2 Myelocytes # 0.1 Toxic Vacuolation Platelet Estimate NORMAL Large Platelets Plt Morphology Comment NORMAL RBC Morphology NORMAL Polychromasia Ovalocytes [place] Cells Acanthocytes (Spur) Schistocytes Smear Tech's Comments PT INR APTT Hold Blue Top VBG pH 7.52 H VBG pCO2 38 VBG pO2 51 VBG HCO3 31 H VBG O2 Saturation 82.0 VBG Base Excess 8.6 Sodium 145 143 Potassium 5.1 D 3.7 D Chloride 110 H 104 Carbon Dioxide 24 29 Anion Gap 16 14 BUN 31 H 32 H Creatinine 1.43 H 1.53 H Estim Creat Clear Calc 48.9 44.2 Estimated GFR 47 44 POC Glucose Random Glucose 126 H 116 H Lactic Acid Lactic Acid F/U @ 2Hr Lactic Acid F/U @ 4Hr Calcium 8.5 9.2 D Phosphorus 3.8 3.5 Magnesium 2.0 1.9 Total Bilirubin AST ALT Alkaline Phosphatase Troponin I High Sens Total Protein Albumin TSH Urine Color Urine Appearance Urine pH Ur Specific [place] Urine Protein Urine Glucose (UA) Urine Ketones Urine Blood Urine Nitrite Ur Leukocyte Esterase Urine RBC Urine WBC Ur Squamous Epith Cells Urine Bacteria Hyaline Casts Nasal Screen MRSA (PCR) Nasal S. aureus Screen Nasal MRSA/S.aureus Interp Influenza Type A (PCR) Influenza Type B (PCR) RSV RNA Qual (PCR) SARS-CoV-2 RNA (RT-PCR) 02/16/24 02/17/24 02/17/24 18:13 04:12 04:17 WBC 11.2 H RBC 3.83 L Hgb 10.8 L Hct 33.6 L MCV 87.7 MCH 28.2 MCHC 32.1 RDW 16.3 H Plt Count 222 MPV 10.1 Immature Gran % (Auto) Cancelled Neut % (Auto) Cancelled Lymph % (Auto) Cancelled [place] % (Auto) Cancelled Eos % (Auto) Cancelled Baso % (Auto) Cancelled Lymph # (Auto) Cancelled [place] # (Auto) Cancelled Eos # (Auto) Cancelled Baso # (Auto) Cancelled Abs Immat Gran (auto) Cancelled Absolute Neuts (auto) Cancelled Absolute Nucleated RBC 0.030 H Nucleated RBC % (auto) 0.3 H Neutrophils % (Manual) 54 Band Neutrophils % 5 Lymphocytes % (Manual) 19 L Atypical Lymphs % (Man) Monocytes % (Manual) 12 H Eosinophils % (Manual) Basophils % (Manual) 1 Metamyelocytes % 5 Myelocytes % 4 Abs Neuts (Manual) 6.6 Lymphocytes # (Manual) 2.1 Atyp Lymphs # (Manual) Monocytes # (Manual) 1.3 H Eosinophils # (Manual) Basophils # (Manual) 0.1 Metamyelocytes # 0.6 Myelocytes # 0.4 Toxic Vacuolation Platelet Estimate NORMAL Large Platelets Plt Morphology Comment NORMAL RBC Morphology NOTED Polychromasia 1+ (0-2) Ovalocytes 1+ (5-14) Maury Cells Acanthocytes (Spur) 1+ (0-2) Schistocytes 1+ (0-2) Smear Tech's Comments PT INR APTT Hold Blue Top VBG pH 7.57 H VBG pCO2 37 VBG pO2 49 VBG HCO3 34 H VBG O2 Saturation 78.0 VBG Base Excess 11.5 Sodium 139 Potassium 4.9 D Chloride 100 Carbon Dioxide 29 Anion Gap 15 BUN 33 H Creatinine 1.52 H Estim Creat Clear Calc 44.5 Estimated GFR 44 POC Glucose Random Glucose 118 H Lactic Acid Lactic Acid F/U @ 2Hr Lactic Acid F/U @ 4Hr Calcium 9.3 Phosphorus 3.5 Magnesium 2.2 Total Bilirubin AST ALT Alkaline Phosphatase Troponin I High Sens Total Protein Albumin TSH Urine Color Urine Appearance Urine pH Ur Specific [place] Urine Protein Urine Glucose (UA) Urine Ketones Urine Blood Urine Nitrite Ur Leukocyte Esterase Urine RBC Urine WBC Ur Squamous Epith Cells Urine Bacteria Hyaline Casts Nasal Screen MRSA (PCR) Nasal S. aureus Screen Nasal MRSA/S.aureus Interp Influenza Type A (PCR) Influenza Type B (PCR) RSV RNA Qual (PCR) SARS-CoV-2 RNA (RT-PCR) 02/17/24 02/17/24 02/18/24 06:31 15:18 04:41 WBC RBC Hgb Hct MCV MCH MCHC RDW Plt Count MPV Immature Gran % (Auto) Neut % (Auto) Lymph % (Auto) [place] % (Auto) Eos % (Auto) Baso % (Auto) Lymph # (Auto) [place] # (Auto) Eos # (Auto) Baso # (Auto) Abs Immat Gran (auto) Absolute Neuts (auto) Absolute Nucleated RBC Nucleated RBC % (auto) Neutrophils % (Manual) Band Neutrophils % Lymphocytes % (Manual) Atypical Lymphs % (Man) Monocytes % (Manual) Eosinophils % (Manual) Basophils % (Manual) Metamyelocytes % Myelocytes % Abs Neuts (Manual) Lymphocytes # (Manual) Atyp Lymphs # (Manual) Monocytes # (Manual) Eosinophils # (Manual) Basophils # (Manual) Metamyelocytes # Myelocytes # Toxic Vacuolation Platelet Estimate Large Platelets Plt Morphology Comment RBC Morphology Polychromasia Ovalocytes [place] Cells Acanthocytes (Spur) Schistocytes Smear Tech's Comments PT INR APTT Hold Blue Top VBG pH 7.60 H* VBG pCO2 29 VBG pO2 71 VBG HCO3 29 H VBG O2 Saturation 93.0 VBG Base Excess 8.3 Sodium 139 138 Potassium 4.0 4.2 Chloride 97 95 L Carbon Dioxide 30 H 29 Anion Gap 16 18 BUN 39 H 40 H Creatinine 1.62 H 1.64 H Estim Creat Clear Calc 41.7 41.2 Estimated GFR 41 40 POC Glucose Random Glucose 142 H 139 H Lactic Acid Lactic Acid F/U @ 2Hr Lactic Acid F/U @ 4Hr Calcium 9.4 9.5 Phosphorus 3.9 4.1 Magnesium 2.3 2.4 Total Bilirubin AST ALT Alkaline Phosphatase Troponin I High Sens Total Protein Albumin TSH Urine Color Urine Appearance Urine pH Ur Specific [place] Urine Protein Urine Glucose (UA) Urine Ketones Urine Blood Urine Nitrite Ur Leukocyte Esterase Urine RBC Urine WBC Ur Squamous Epith Cells Urine Bacteria Hyaline Casts Nasal Screen MRSA (PCR) Nasal S. aureus Screen Nasal MRSA/S.aureus Interp Influenza Type A (PCR) Influenza Type B (PCR) RSV RNA Qual (PCR) SARS-CoV-2 RNA (RT-PCR) 02/18/24 02/18/24 02/19/24 04:42 18:01 04:33 WBC 13.2 H 17.4 H RBC 4.04 L 4.02 L Hgb 11.6 L 11.5 L Hct 33.7 L 34.7 L MCV 83.4 86.3 MCH 28.7 28.6 MCHC 34.4 33.1 RDW 15.9 15.9 Plt Count 184 216 MPV 11.4 10.3 Immature Gran % (Auto) Cancelled 2.5 H Neut % (Auto) Cancelled 70.1 Lymph % (Auto) Cancelled 11.3 L [place] % (Auto) Cancelled 14.4 H Eos % (Auto) Cancelled 1.4 Baso % (Auto) Cancelled 0.3 Lymph # (Auto) Cancelled 2.0 [place] # (Auto) Cancelled 2.5 H Eos # (Auto) Cancelled 0.2 Baso # (Auto) Cancelled 0.1 Abs Immat Gran (auto) Cancelled 0.44 H Absolute Neuts (auto) Cancelled 12.2 H Absolute Nucleated RBC 0.000 0.000 Nucleated RBC % (auto) 0.0 0.0 Neutrophils % (Manual) 62 Band Neutrophils % 3 Lymphocytes % (Manual) 16 L Atypical Lymphs % (Man) Monocytes % (Manual) 14 H Eosinophils % (Manual) 3 Basophils % (Manual) Metamyelocytes % 1 Myelocytes % 1 Abs Neuts (Manual) 8.6 H Lymphocytes # (Manual) 2.1 Atyp Lymphs # (Manual) Monocytes # (Manual) 1.8 H Eosinophils # (Manual) 0.4 Basophils # (Manual) Metamyelocytes # 0.1 Myelocytes # 0.1 Toxic Vacuolation Platelet Estimate NORMAL Large Platelets PRESENT Plt Morphology Comment NOTED RBC Morphology NOTED Polychromasia 1+ (0-2) Ovalocytes 1+ (5-14) Maury Cells Acanthocytes (Spur) 1+ (0-2) Schistocytes Smear Tech's Comments VERIFIED PT INR APTT Hold Blue Top VBG pH VBG pCO2 VBG pO2 VBG HCO3 VBG O2 Saturation VBG Base Excess Sodium 135 135 134 L Potassium 3.7 4.4 4.8 Chloride 95 L 95 L 95 L Carbon Dioxide 25 27 26 Anion Gap 19 17 18 BUN 41 H 43 H 45 H Creatinine 1.70 H 1.78 H 1.78 H Estim Creat Clear Calc 39.8 38.0 38.0 Estimated GFR 39 37 37 POC Glucose Random Glucose 146 H 147 H 160 H Lactic Acid Lactic Acid F/U @ 2Hr Lactic Acid F/U @ 4Hr Calcium 9.6 9.7 9.5 Phosphorus 3.3 4.4 4.3 Magnesium 2.5 2.8 H 2.8 H Total Bilirubin AST ALT Alkaline Phosphatase Troponin I High Sens Total Protein Albumin TSH Urine Color Urine Appearance Urine pH Ur Specific [place] Urine Protein Urine Glucose (UA) Urine Ketones Urine Blood Urine Nitrite Ur Leukocyte Esterase Urine RBC Urine WBC Ur Squamous Epith Cells Urine Bacteria Hyaline Casts Nasal Screen MRSA (PCR) Nasal S. aureus Screen Nasal MRSA/S.aureus Interp Influenza Type A (PCR) Influenza Type B (PCR) RSV RNA Qual (PCR) SARS-CoV-2 RNA (RT-PCR) 02/19/24 02/19/24 02/20/24 04:37 19:09 05:15 WBC 14.1 H RBC 3.73 L Hgb 10.6 L Hct 32.0 L MCV 85.8 MCH 28.4 MCHC 33.1 RDW 15.7 Plt Count 174 MPV 10.4 Immature Gran % (Auto) 1.6 H Neut % (Auto) 67.8 Lymph % (Auto) 16.5 L [place] % (Auto) 11.9 H Eos % (Auto) 1.8 Baso % (Auto) 0.4 Lymph # (Auto) 2.3 [place] # (Auto) 1.7 H Eos # (Auto) 0.3 Baso # (Auto) 0.1 Abs Immat Gran (auto) 0.22 H Absolute Neuts (auto) 9.6 H Absolute Nucleated RBC 0.000 Nucleated RBC % (auto) 0.0 Neutrophils % (Manual) Band Neutrophils % Lymphocytes % (Manual) Atypical Lymphs % (Man) Monocytes % (Manual) Eosinophils % (Manual) Basophils % (Manual) Metamyelocytes % Myelocytes % Abs Neuts (Manual) Lymphocytes # (Manual) Atyp Lymphs # (Manual) Monocytes # (Manual) Eosinophils # (Manual) Basophils # (Manual) Metamyelocytes # Myelocytes # Toxic Vacuolation Platelet Estimate Large Platelets Plt Morphology Comment RBC Morphology Polychromasia Ovalocytes [place] Cells Acanthocytes (Spur) Schistocytes Smear Tech's Comments VERIFIED PT INR APTT Hold Blue Top VBG pH 7.57 H VBG pCO2 34 VBG pO2 45 VBG HCO3 31 H VBG O2 Saturation 72.0 VBG Base Excess 9.3 Sodium 133 L 133 L Potassium 4.5 4.6 Chloride 97 96 Carbon Dioxide 27 26 Anion Gap 14 16 BUN 45 H 45 H Creatinine 1.69 H 1.81 H Estim Creat Clear Calc 39.5 36.9 Estimated GFR 39 36 POC Glucose Random Glucose 144 H 149 H Lactic Acid Lactic Acid F/U @ 2Hr Lactic Acid F/U @ 4Hr Calcium 8.8 D 9.3 Phosphorus 4.0 3.8 Magnesium 2.8 H 2.8 H Total Bilirubin AST ALT Alkaline Phosphatase Troponin I High Sens Total Protein Albumin TSH Urine Color Urine Appearance Urine pH Ur Specific [place] Urine Protein Urine Glucose (UA) Urine Ketones Urine Blood Urine Nitrite Ur Leukocyte Esterase Urine RBC Urine WBC Ur Squamous Epith Cells Urine Bacteria Hyaline Casts Nasal Screen MRSA (PCR) Nasal S. aureus Screen Nasal MRSA/S.aureus Interp Influenza Type A (PCR) Influenza Type B (PCR) RSV RNA Qual (PCR) SARS-CoV-2 RNA (RT-PCR) 02/20/24 02/21/24 02/21/24 05:20 05:09 05:10 WBC 12.4 H RBC 3.54 L Hgb 10.0 L Hct 30.8 L MCV 87.0 MCH 28.2 MCHC 32.5 RDW 15.4 Plt Count 169 MPV 10.8 Immature Gran % (Auto) 1.1 H Neut % (Auto) 65.5 Lymph % (Auto) 17.1 L [place] % (Auto) 13.7 H Eos % (Auto) 2.1 Baso % (Auto) 0.5 Lymph # (Auto) 2.1 [place] # (Auto) 1.7 H Eos # (Auto) 0.3 Baso # (Auto) 0.1 Abs Immat Gran (auto) 0.14 H Absolute Neuts (auto) 8.1 Absolute Nucleated RBC 0.000 Nucleated RBC % (auto) 0.0 Neutrophils % (Manual) Band Neutrophils % Lymphocytes % (Manual) Atypical Lymphs % (Man) Monocytes % (Manual) Eosinophils % (Manual) Basophils % (Manual) Metamyelocytes % Myelocytes % Abs Neuts (Manual) Lymphocytes # (Manual) Atyp Lymphs # (Manual) Monocytes # (Manual) Eosinophils # (Manual) Basophils # (Manual) Metamyelocytes # Myelocytes # Toxic Vacuolation Platelet Estimate Large Platelets Plt Morphology Comment RBC Morphology Polychromasia Ovalocytes Maury Cells Acanthocytes (Spur) Schistocytes Smear Tech's Comments VERIFIED PT INR APTT Hold Blue Top VBG pH 7.62 H* 7.53 H VBG pCO2 29 42 VBG pO2 46 44 VBG HCO3 30 H 35 H VBG O2 Saturation 76.0 70.0 VBG Base Excess 9.5 12.1 Sodium 134 L Potassium 4.8 Chloride 97 Carbon Dioxide 26 Anion Gap 16 BUN 43 H Creatinine 1.55 H Estim Creat Clear Calc 43.1 Estimated GFR 43 POC Glucose Random Glucose 137 H Lactic Acid Lactic Acid F/U @ 2Hr Lactic Acid F/U @ 4Hr Calcium 9.4 Phosphorus 4.0 Magnesium 2.8 H Total Bilirubin AST ALT Alkaline Phosphatase Troponin I High Sens Total Protein Albumin 2.9 L TSH Urine Color Urine Appearance Urine pH Ur Specific [place] Urine Protein Urine Glucose (UA) Urine Ketones Urine Blood Urine Nitrite Ur Leukocyte Esterase Urine RBC Urine WBC Ur Squamous Epith Cells Urine Bacteria Hyaline Casts Nasal Screen MRSA (PCR) Nasal S. aureus Screen Nasal MRSA/S.aureus Interp Influenza Type A (PCR) Influenza Type B (PCR) RSV RNA Qual (PCR) SARS-CoV-2 RNA (RT-PCR) 02/22/24 02/22/24 02/23/24 05:31 05:49 04:51 WBC 7.5 RBC 3.10 L Hgb 8.8 L Hct 26.8 L MCV 86.5 MCH 28.4 MCHC 32.8 RDW 15.6 Plt Count 165 MPV 10.6 Immature Gran % (Auto) 0.7 H Neut % (Auto) 60.5 Lymph % (Auto) 22.9 [place] % (Auto) 13.1 H Eos % (Auto) 2.1 Baso % (Auto) 0.7 Lymph # (Auto) 1.7 [place] # (Auto) 1.0 Eos # (Auto) 0.2 Baso # (Auto) 0.1 Abs Immat Gran (auto) 0.05 H Absolute Neuts (auto) 4.5 Absolute Nucleated RBC 0.000 Nucleated RBC % (auto) 0.0 Neutrophils % (Manual) Band Neutrophils % Lymphocytes % (Manual) Atypical Lymphs % (Man) Monocytes % (Manual) Eosinophils % (Manual) Basophils % (Manual) Metamyelocytes % Myelocytes % Abs Neuts (Manual) Lymphocytes # (Manual) Atyp Lymphs # (Manual) Monocytes # (Manual) Eosinophils # (Manual) Basophils # (Manual) Metamyelocytes # Myelocytes # Toxic Vacuolation Platelet Estimate Large Platelets Plt Morphology Comment RBC Morphology Polychromasia Ovalocytes [place] Cells Acanthocytes (Spur) Schistocytes Smear Tech's Comments PT INR APTT Hold Blue Top VBG pH 7.67 H* 7.58 H VBG pCO2 26 30 VBG pO2 53 41 VBG HCO3 30 H 28 H VBG O2 Saturation 87.0 68.0 VBG Base Excess 10.2 7.2 Sodium 138 Potassium 4.1 Chloride 103 Carbon Dioxide 25 Anion Gap 14 BUN 40 H Creatinine 1.30 Estim Creat Clear Calc 51.0 Estimated GFR 53 POC Glucose Random Glucose 107 Lactic Acid Lactic Acid F/U @ 2Hr Lactic Acid F/U @ 4Hr Calcium 9.5 Phosphorus 3.7 Magnesium 2.7 H Total Bilirubin AST ALT Alkaline Phosphatase Troponin I High Sens Total Protein Albumin 4.0 TSH Urine Color Urine Appearance Urine pH Ur Specific [place] Urine Protein Urine Glucose (UA) Urine Ketones Urine Blood Urine Nitrite Ur Leukocyte Esterase Urine RBC Urine WBC Ur Squamous Epith Cells Urine Bacteria Hyaline Casts Nasal Screen MRSA (PCR) Nasal S. aureus Screen Nasal MRSA/S.aureus Interp Influenza Type A (PCR) Influenza Type B (PCR) RSV RNA Qual (PCR) SARS-CoV-2 RNA (RT-PCR) 02/23/24 02/24/24 02/24/24 04:53 05:08 05:17 WBC 6.4 6.2 RBC 3.17 L 3.27 L Hgb 9.1 L 9.2 L Hct 27.3 L 28.2 L MCV 86.1 86.2 MCH 28.7 28.1 MCHC 33.3 32.6 RDW 15.0 14.9 Plt Count 178 203 MPV 10.2 10.0 Immature Gran % (Auto) 0.5 H 0.6 H Neut % (Auto) 62.3 57.7 Lymph % (Auto) 20.4 25.0 [place] % (Auto) 12.6 H 12.5 H Eos % (Auto) 3.4 3.4 Baso % (Auto) 0.8 0.8 Lymph # (Auto) 1.3 1.6 [place] # (Auto) 0.8 0.8 Eos # (Auto) 0.2 0.2 Baso # (Auto) 0.1 0.1 Abs Immat Gran (auto) 0.03 0.04 H Absolute Neuts (auto) 4.0 3.6 Absolute Nucleated RBC 0.000 0.000 Nucleated RBC % (auto) 0.0 0.0 Neutrophils % (Manual) Band Neutrophils % Lymphocytes % (Manual) Atypical Lymphs % (Man) Monocytes % (Manual) Eosinophils % (Manual) Basophils % (Manual) Metamyelocytes % Myelocytes % Abs Neuts (Manual) Lymphocytes # (Manual) Atyp Lymphs # (Manual) Monocytes # (Manual) Eosinophils # (Manual) Basophils # (Manual) Metamyelocytes # Myelocytes # Toxic Vacuolation Platelet Estimate Large Platelets Plt Morphology Comment RBC Morphology Polychromasia Ovalocytes [place] Cells Acanthocytes (Spur) Schistocytes Smear Tech's Comments PT INR APTT Hold Blue Top VBG pH 7.57 H VBG pCO2 30 VBG pO2 44 VBG HCO3 27 H VBG O2 Saturation 72.0 VBG Base Excess 6.2 Sodium 139 138 Potassium 4.6 4.2 Chloride 102 103 Carbon Dioxide 18 L 23 Anion Gap 24 H 16 BUN 40 H 40 H Creatinine 1.50 H 1.42 H Estim Creat Clear Calc 44.2 47.5 Estimated GFR 45 47 POC Glucose Random Glucose 113 113 Lactic Acid Lactic Acid F/U @ 2Hr Lactic Acid F/U @ 4Hr Calcium 10.0 9.8 Phosphorus 4.6 H 4.8 H Magnesium 2.7 H 2.6 Total Bilirubin AST ALT Alkaline Phosphatase Troponin I High Sens Total Protein Albumin 3.7 3.4 L TSH Urine Color Urine Appearance Urine pH Ur Specific [place] Urine Protein Urine Glucose (UA) Urine Ketones Urine Blood Urine Nitrite Ur Leukocyte Esterase Urine RBC Urine WBC Ur Squamous Epith Cells Urine Bacteria Hyaline Casts Nasal Screen MRSA (PCR) Nasal S. aureus Screen Nasal MRSA/S.aureus Interp Influenza Type A (PCR) Influenza Type B (PCR) RSV RNA Qual (PCR) SARS-CoV-2 RNA (RT-PCR) 02/25/24 02/25/24 02/25/24 06:14 06:15 06:19 WBC 6.3 RBC 3.40 L Hgb 9.7 L Hct 29.6 L MCV 87.1 MCH 28.5 MCHC 32.8 RDW 14.7 Plt Count 220 MPV 10.1 Immature Gran % (Auto) 0.5 H Neut % (Auto) 64.1 Lymph % (Auto) 20.1 [place] % (Auto) 11.1 H Eos % (Auto) 3.2 Baso % (Auto) 1.0 Lymph # (Auto) 1.3 [place] # (Auto) 0.7 Eos # (Auto) 0.2 Baso # (Auto) 0.1 Abs Immat Gran (auto) 0.03 Absolute Neuts (auto) 4.0 Absolute Nucleated RBC 0.000 Nucleated RBC % (auto) 0.0 Neutrophils % (Manual) Band Neutrophils % Lymphocytes % (Manual) Atypical Lymphs % (Man) Monocytes % (Manual) Eosinophils % (Manual) Basophils % (Manual) Metamyelocytes % Myelocytes % Abs Neuts (Manual) Lymphocytes # (Manual) Atyp Lymphs # (Manual) Monocytes # (Manual) Eosinophils # (Manual) Basophils # (Manual) Metamyelocytes # Myelocytes # Toxic Vacuolation Platelet Estimate Large Platelets Plt Morphology Comment RBC Morphology Polychromasia Ovalocytes [place] Cells Acanthocytes (Spur) Schistocytes Smear Tech's Comments PT INR APTT Hold Blue Top VBG pH 7.54 H VBG pCO2 29 VBG pO2 67 VBG HCO3 25 VBG O2 Saturation 95.0 VBG Base Excess 4.0 Sodium 139 Potassium 4.4 Chloride 104 Carbon Dioxide 25 Anion Gap 14 BUN 40 H Creatinine 1.20 Estim Creat Clear Calc 56.5 Estimated GFR 58 POC Glucose Random Glucose 120 H Lactic Acid Lactic Acid F/U @ 2Hr Lactic Acid F/U @ 4Hr Calcium 10.1 Phosphorus 4.6 H Magnesium 2.3 Total Bilirubin AST ALT Alkaline Phosphatase Troponin I High Sens Total Protein Albumin 3.9 TSH Urine Color Urine Appearance Urine pH Ur Specific [place] Urine Protein Urine Glucose (UA) Urine Ketones Urine Blood Urine Nitrite Ur Leukocyte Esterase Urine RBC Urine WBC Ur Squamous Epith Cells Urine Bacteria Hyaline Casts Nasal Screen MRSA (PCR) Nasal S. aureus Screen Nasal MRSA/S.aureus Interp Influenza Type A (PCR) Influenza Type B (PCR) RSV RNA Qual (PCR) SARS-CoV-2 RNA (RT-PCR) 02/26/24 02/26/24 02/27/24 05:06 05:11 05:13 WBC 7.1 8.4 RBC 3.40 L 3.54 L Hgb 10.6 L 10.1 L Hct 30.0 L 31.3 L MCV 88.2 88.4 MCH 31.2 28.5 MCHC 35.3 32.3 RDW 15.1 14.9 Plt Count 216 250 MPV 11.0 10.3 Immature Gran % (Auto) 0.7 H 0.7 H Neut % (Auto) 69.6 66.0 Lymph % (Auto) 15.9 L 19.8 L [place] % (Auto) 11.0 10.9 Eos % (Auto) 2.1 1.9 Baso % (Auto) 0.7 0.7 Lymph # (Auto) 1.1 L 1.7 [place] # (Auto) 0.8 0.9 Eos # (Auto) 0.2 0.2 Baso # (Auto) 0.1 0.1 Abs Immat Gran (auto) 0.05 H 0.06 H Absolute Neuts (auto) 4.9 5.5 Absolute Nucleated RBC 0.000 0.000 Nucleated RBC % (auto) 0.0 0.0 Neutrophils % (Manual) Band Neutrophils % Lymphocytes % (Manual) Atypical Lymphs % (Man) Monocytes % (Manual) Eosinophils % (Manual) Basophils % (Manual) Metamyelocytes % Myelocytes % Abs Neuts (Manual) Lymphocytes # (Manual) Atyp Lymphs # (Manual) Monocytes # (Manual) Eosinophils # (Manual) Basophils # (Manual) Metamyelocytes # Myelocytes # Toxic Vacuolation Platelet Estimate Large Platelets Plt Morphology Comment RBC Morphology Polychromasia Ovalocytes [place] Cells Acanthocytes (Spur) Schistocytes Smear Tech's Comments PT 12.6 INR 1.0 APTT Hold Blue Top VBG pH 7.48 H VBG pCO2 33 VBG pO2 44 VBG HCO3 25 VBG O2 Saturation 70.0 VBG Base Excess 2.9 Sodium 133 L 139 Potassium 4.3 3.6 Chloride 99 103 Carbon Dioxide 21 L 20 L Anion Gap 17 20 BUN 38 H 56 H Creatinine 1.12 1.59 H Estim Creat Clear Calc 59.5 41.9 Estimated GFR > 60 42 POC Glucose Random Glucose 106 117 H Lactic Acid Lactic Acid F/U @ 2Hr Lactic Acid F/U @ 4Hr Calcium 10.1 10.3 H Phosphorus 4.1 5.7 H Magnesium 2.4 2.6 Total Bilirubin AST ALT Alkaline Phosphatase Troponin I High Sens Total Protein Albumin 3.7 3.7 TSH Urine Color Urine Appearance Urine pH Ur Specific [place] Urine Protein Urine Glucose (UA) Urine Ketones Urine Blood Urine Nitrite Ur Leukocyte Esterase Urine RBC Urine WBC Ur Squamous Epith Cells Urine Bacteria Hyaline Casts Nasal Screen MRSA (PCR) Nasal S. aureus Screen Nasal MRSA/S.aureus Interp Influenza Type A (PCR) Influenza Type B (PCR) RSV RNA Qual (PCR) SARS-CoV-2 RNA (RT-PCR) 02/27/24 02/28/24 02/28/24 05:23 05:17 05:21 WBC 16.4 H RBC 3.83 L Hgb 10.7 L Hct 33.9 L MCV 88.5 MCH 27.9 MCHC 31.6 RDW 15.9 Plt Count 284 MPV 11.1 Immature Gran % (Auto) 0.8 H Neut % (Auto) 80.1 H Lymph % (Auto) 9.2 L [place] % (Auto) 9.6 Eos % (Auto) 0.0 Baso % (Auto) 0.3 Lymph # (Auto) 1.5 [place] # (Auto) 1.6 H Eos # (Auto) 0.0 Baso # (Auto) 0.1 Abs Immat Gran (auto) 0.13 H Absolute Neuts (auto) 13.2 H Absolute Nucleated RBC 0.000 Nucleated RBC % (auto) 0.0 Neutrophils % (Manual) Band Neutrophils % Lymphocytes % (Manual) Atypical Lymphs % (Man) Monocytes % (Manual) Eosinophils % (Manual) Basophils % (Manual) Metamyelocytes % Myelocytes % Abs Neuts (Manual) Lymphocytes # (Manual) Atyp Lymphs # (Manual) Monocytes # (Manual) Eosinophils # (Manual) Basophils # (Manual) Metamyelocytes # Myelocytes # Toxic Vacuolation Platelet Estimate Large Platelets Plt Morphology Comment RBC Morphology Polychromasia Ovalocytes [place] Cells Acanthocytes (Spur) Schistocytes Smear Tech's Comments VERIFIED PT INR APTT Hold Blue Top VBG pH 7.49 H 7.53 H VBG pCO2 31 29 VBG pO2 45 51 VBG HCO3 24 24 VBG O2 Saturation 72.0 79.0 VBG Base Excess 2.2 2.9 Sodium 138 Potassium 4.9 D Chloride 103 Carbon Dioxide 21 L Anion Gap 19 BUN 65 H Creatinine 1.83 H Estim Creat Clear Calc 35.8 Estimated GFR 35 POC Glucose Random Glucose 141 H Lactic Acid Lactic Acid F/U @ 2Hr Lactic Acid F/U @ 4Hr Calcium 10.1 Phosphorus 5.3 H Magnesium 2.7 H Total Bilirubin AST ALT Alkaline Phosphatase Troponin I High Sens Total Protein Albumin 3.7 TSH Urine Color Urine Appearance Urine pH Ur Specific [place] Urine Protein Urine Glucose (UA) Urine Ketones Urine Blood Urine Nitrite Ur Leukocyte Esterase Urine RBC Urine WBC Ur Squamous Epith Cells Urine Bacteria Hyaline Casts Nasal Screen MRSA (PCR) Nasal S. aureus Screen Nasal MRSA/S.aureus Interp Influenza Type A (PCR) Influenza Type B (PCR) RSV RNA Qual (PCR) SARS-CoV-2 RNA (RT-PCR) 02/29/24 02/29/24 05:21 05:25 WBC 14.8 H RBC 3.82 L Hgb 10.9 L Hct 33.5 L MCV 87.7 MCH 28.5 MCHC 32.5 RDW 15.8 Plt Count 295 MPV 10.5 Immature Gran % (Auto) 0.6 H Neut % (Auto) 75.2 H Lymph % (Auto) 12.1 L [place] % (Auto) 11.3 H Eos % (Auto) 0.5 Baso % (Auto) 0.3 Lymph # (Auto) 1.8 [place] # (Auto) 1.7 H Eos # (Auto) 0.1 Baso # (Auto) 0.1 Abs Immat Gran (auto) 0.09 H Absolute Neuts (auto) 11.1 H Absolute Nucleated RBC 0.000 Nucleated RBC % (auto) 0.0 Neutrophils % (Manual) Band Neutrophils % Lymphocytes % (Manual) Atypical Lymphs % (Man) Monocytes % (Manual) Eosinophils % (Manual) Basophils % (Manual) Metamyelocytes % Myelocytes % Abs Neuts (Manual) Lymphocytes # (Manual) Atyp Lymphs # (Manual) Monocytes # (Manual) Eosinophils # (Manual) Basophils # (Manual) Metamyelocytes # Myelocytes # Toxic Vacuolation Platelet Estimate Large Platelets Plt Morphology Comment RBC Morphology Polychromasia Ovalocytes [place] Cells Acanthocytes (Spur) Schistocytes Smear Tech's Comments VERIFIED PT INR APTT Hold Blue Top VBG pH 7.55 H VBG pCO2 32 VBG pO2 44 VBG HCO3 28 H VBG O2 Saturation 68.0 VBG Base Excess 6.3 Sodium 143 Potassium 3.5 D Chloride 103 Carbon Dioxide 22 Anion Gap 22 H BUN 80 H Creatinine 2.03 H Estim Creat Clear Calc 32.5 Estimated GFR 31 POC Glucose Random Glucose 130 H Lactic Acid Lactic Acid F/U @ 2Hr Lactic Acid F/U @ 4Hr Calcium 10.3 H Phosphorus 4.4 Magnesium 2.9 H Total Bilirubin AST ALT Alkaline Phosphatase Troponin I High Sens Total Protein Albumin 3.6 TSH Urine Color Urine Appearance Urine pH Ur Specific [place] Urine Protein Urine Glucose (UA) Urine Ketones Urine Blood Urine Nitrite Ur Leukocyte Esterase Urine RBC Urine WBC Ur Squamous Epith Cells Urine Bacteria Hyaline Casts Nasal Screen MRSA (PCR) Nasal S. aureus Screen Nasal MRSA/S.aureus Interp Influenza Type A (PCR) Influenza Type B (PCR) RSV RNA Qual (PCR) SARS-CoV-2 RNA (RT-PCR) Airway Mallampati Class: Patient Non-Cooperative (pt tubed) Heart: afib Lungs: cta Assessment and Plan Assessment Anesthesia Assessment: Anesthesia Plan Discussed Final Anesthetic Review Family History of Problems with Anesthesia: No History of Problems with Anesthesia: No NPO: Yes ASA Class: IV and Emergency Final Preanesthetic Review: No Changes in Pt Med Stat, Meds/Allgs Chart Reviewed, Consent Obtained/Reviewed and Anes Risks/Benef Reviewed Patient Risk: High Procedure Risk: Intermediate Anesthetic Plan Anesthetic Plan: GA Disposition: Standard PACU
--- NOTE | 2024-02-29 14:28 | MHC.SHP ---
Pre-Procedural Eval Section A - 24 Hr Update-Section A only Date of Service: 02/29/24 The patient is an INPATIENT: Yes Changes since office visit: No Cold of Flu in the past 2 weeks, No New Medical Problems, No Changes in Medication and No Patient answered all questions Section B - Complete if H&P > 30 days Chief Complaint: Alteration of mental status, hypoxia Details of Present Illness: Patient was a proximally 2 days status post tracheostomy placement for ventilatory dependence. Well earlier today the patient was being rolled and mobilized per nursing, the tracheostomy tube dislodged. Patient will be taken to the operating room for tracheostomy replacement. Allergies: Allergies Allergy/AdvReac Type Severity Reaction Status Date / Time ibuprofen [IBUPROFEN] Allergy Intermediate HIVES Verified 02/09/24 13:22 hydromorphone [From DILAUDID] AdvReac Intermediate ILEUS Verified 02/09/24 13:22 procaine [From Novocain] AdvReac Intermediate has no Verified 02/09/24 13:22 numbing effect-states monocain works narcotic pain meds AdvReac Intermediate does not Uncoded 05/11/23 15:08 relieve pain per patient Plan I have reviewed the history and physical and performed a pertinent physical examination on my patient. No changes have occurred unless specified. Time Spent With Patient Time: Total time managing care of this patient today ____ minutes.
[2024-02-29] MEDS: propofoL 1,000 MG/100 ML VIAL 31.83 MG IVCONT (14:30)
--- NOTE | 2024-02-29 15:29 | P.OP_ITS ---
Operative Note Operative Note Date of Service: 02/29/24 Narrative: Preoperative diagnosis: [] Tracheostomy revision/replacement Postop diagnosis: [] Same Procedure [] tracheostomy replacement Surgeon: [] Doug Vice President Marketing & Development: [] Alanis Type of Anesthesia: [] General Findings; Patient is approximately 2 days status post open tracheostomy tube placement. Earlier today ,inadvertently while patient was being rolled/moved, tracheostomy was pulled out and patient was intubated with tracheostomy tube in the soft tissue. Procedure; Patient was taken the operating room for tracheostomy revision/replacement. Patient was appropriately positioned and neck extended. Sutures and strap of prior trach tube were removed. Retractors placed for exposure. As expected, the tissue planes were completely obliterated/undiscernible and there was marked edema of the neck soft tissues secondary to the above-mentioned procedure. Initial attempt to pass a cannula down the trachea with ETT withdrawal to just above tracheotomy and number a long #8. Portex tracheostomy tube placement was attempted with difficulty with unsatisfactory O2 sats and end-tidal CO2 values.. ET tube was advanced and patient had O2 saturations stabilized along with vital signs . The procedure was once again attempted; ETT was withdrawn again under direct vision just above the tracheotomy site and a long number 8 Portex tube was advanced into distal trachea under direct vision. Connection to the circuit demonstrated good O2 saturations, end-tidal CO2, and bilateral chest wall movement. Tracheostomy tube was once again secured to the skin using 2-0 silk sutures x2 on either side and then connected to the Velcro neck strap. Sponge, needle, and instrument counts reported correct. Patient was transferred directly back to the ICU for further restorative measures. Postprocedure portable chest x-ray pending. EBL minimal
[2024-02-29] MEDS: propofoL 1,000 MG/100 ML VIAL 30 MG IVCONT (16:58)
[2024-02-29] MEDS: propofoL 1,000 MG/100 ML VIAL 12.73 MG IVCONT (23:56)
[2024-03-01] VITALS (32 sets, daily range): BP systolic 89–127; BP diastolic 36–72; PULSE 81–160; RESP 14–27; TEMP 35–38.1; O2SAT 89–100; BMI 34.6
[2024-03-01] MEDS: Lactated Ringers 250 ML 999 ML IV (01:25)
[2024-03-01] MEDS: Levothyroxine Sodium 88 MCG TABLET PO (04:43)
[2024-03-01 05:12] LABS: VBG Base Excess 4.5 mmol/L; VBG HCO3 27 mmol/L (22-26); VBG pCO2 34 mmHg; VBG pO2 40 mmHg
[2024-03-01 05:18] LABS: Venous Blood Gas Refer to POC result
[2024-03-01 05:40] LABS: Basophils Absolute Auto 0.1 X10*3/uL (0.0-0.2); Basophils Percent Auto 0.4 % (0-2); Eosinophils Absolute Auto 0.2 X10*3/uL (0.0-0.4); Eosinophils Percent Auto 1.1 % (0-4); Hematocrit 31.8 % (42.0-52.0); Hemoglobin 10.3 g/dl (14.0-18.0); Imm Gran Abs Auto 0.07 X10*3/uL (0.00-0.03); Imm Gran Pct Auto 0.5 % (0.0-0.4); Lymphocytes Absolute Auto 1.9 X10*3/uL (1.2-4.9); Lymphocytes Percent Auto 13.9 % (20-40); MANUAL DIFF FLAG SCAN; Mean Corpuscular HGB Conc 32.4 g/dl (31.0-36.0); Mean Corpuscular Hemoglobin 28.5 pg (27.0-33.0); Mean Corpuscular Volume 88.1 fL (80.0-98.0); Mean Platelet Volume 10.3 fL (9.4-12.4); Monocytes Absolute Auto 1.8 X10*3/uL (0.1-1.2); Monocytes Percent Auto 13.5 % (2-11); Neutrophils Absolute Auto 9.6 x10*3/uL (2.0-8.3); Neutrophils Percent Auto 70.6 % (45-73); Platelet Count 286 X10*3/uL (160-400); Red Blood Count 3.61 X10*6/uL (4.60-5.80); Red Cell Distribution Width 15.9 % (11.0-16.0); SCAN SMEAR FLAG 1; White Blood Count 13.6 X10*3/uL (4.8-10.8)
[2024-03-01 05:55] LABS: Albumin Level 3.5 g/dL (3.5-5.0); Anion Gap 18 (12-20); Blood Urea Nitrogen 103 mg/dL (9-16); Carbon Dioxide 24 mmol/L (22-29); Chloride 105 mmol/L (96-108); Creatinine Clr Calc Pharmacy 28.6; Estimated Glomerular Filt Rate 27; Glucose Random 138 mg/dL (60-115); Magnesium 2.9 mg/dL (1.6-2.6); Phosphorus 5.3 mg/dL (2.7-4.5); Potassium 3.3 mmol/L (3.3-5.1); Sodium 144 mmol/L (135-145)
[2024-03-01 06:09] LABS: SLIDE REVIEW VERIFIED
[2024-03-01] MEDS: Potassium Chloride Packet 20 MEQ PACKET 40 MEQ PO (06:10)
[2024-03-01] MEDS: propofoL 1,000 MG/100 ML VIAL 6.37 MG IVCONT ×2 (06:11→19:29)
[2024-03-01] MEDS: Apixaban 2.5 MG TABLET PO ×2 (08:11→20:06)
[2024-03-01] MEDS: amLODIPine Besylate 10 MG TABLET PO (08:11)
[2024-03-01] MEDS: Chlorhexidine Gluc Oral Rinse 15 ML MOUTHWASH BUCCAL ×3 (08:12→20:06)
[2024-03-01] MEDS: 0.9 % Sodium Chloride Flush 10 ML SYRINGE IVFLUSH ×3 (08:12→14:43)
[2024-03-01] MEDS: Lactated Ringers 1,000 ML 999 ML IV (08:32)
--- NOTE | 2024-03-01 09:11 | PM.PNTS ---
Subjective Subjective Date of Service: 03/01/24 Interval history: No issues overnight. Physical Exam Vital Signs: Vital Signs: Last Vital Signs Temp 99.0 F 03/01/24 08:00 Pulse 102 H 03/01/24 08:00 Resp 23 H 03/01/24 08:00 BP 103/66 03/01/24 08:00 Pulse Ox 93 03/01/24 08:00 O2 Del Method Mechanical Ventil ation 03/01/24 08:00 O2 Flow Rate 30 02/20/24 20:00 FiO2 35 03/01/24 08:00 BMI result Body Mass Index 34.6 Chest: Other: trach in place, some sanguineous drainage, mild surrounding crepitus Procedures Date of Service Date of Service: 03/01/24 Progress Note: A&P Assessment and plan (1) Status post tracheostomy: Status: Acute Plan POD #1 s/p Tracheostomy revision/replacement. No issues overnight. Trach remains intact this morning. Left mediastinal shift with partial left lung collapse on yesterday f/u CXR. ?Mucous plug, may benefit from bronch. Time Spent With Patient Time: Total time managing care of this patient today ____ minutes. Quality Stroke Does the patient have a stroke diagnosis?: No VTE Prior VTE?: No VTE Risk Level:: Medical - moderate - high VTE Device Contraindication: Treatment Not Indicated VTE Drug Contraindication: N/A - Med Ordered
--- NOTE | 2024-03-01 09:49 | MHC.CLN ---
F/U DISCUSSED AT ROUNDS WITH PT RECEIVING NEPRO AT [facility] FEED 10ML/HR PROVIDES 432KCALS, 19G PROTEIN,175ML FREE WATER FROM FORMULA WHEN TF TO ADVANCE; RECOMMEND TF FORMULA NEPRO TO MAX GOAL RATE 45ML/HR TO PROVIDE 1944KCALS (23KCALS/KG BASED ON CMW), 87G PROTEIN (1.0G/KG), 785ML TOTAL FREE WATER FROM FORMULA AND FLUSHES MONITOR TOLERANCE AND LYTES
--- NOTE | 2024-03-01 11:33 | HO.POSTANES ---
Post Anesthesia Evaluation Post Anesthesia Evaluation Date of Service: 03/01/24 Vital Signs: Vital Signs Temp Pulse Resp BP Pulse Ox O2 Del Method FiO2 03/01/24 11:17 35 03/01/24 11:02 35 03/01/24 11:00 99.3 F 136 H 19 100/72 93 Mechanical Ventilation 35 03/01/24 10:00 99.1 F 138 H 16 96/64 94 Mechanical Ventilation 35 03/01/24 09:00 99.0 F 133 H 16 95/68 96 Mechanical Ventilation 35 03/01/24 08:00 35 03/01/24 08:00 99.0 F 102 H 23 H 103/66 93 Mechanical Ventilation 35 03/01/24 07:27 35 03/01/24 07:00 99.0 F 85 23 H 127/64 94 Mechanical Ventilation 35 03/01/24 05:58 99.0 F 81 16 117/57 L 92 Mechanical Ventilation 35 03/01/24 04:50 99.0 F 85 20 116/59 L 95 Mechanical Ventilation 35 03/01/24 04:32 35 03/01/24 04:00 35 03/01/24 03:59 99.1 F 82 18 113/59 L 96 Mechanical Ventilation 35 03/01/24 02:58 99.1 F 84 14 105/56 L 94 Mechanical Ventilation 35 03/01/24 02:54 99.1 F 88 16 105/56 L 95 Mechanical Ventilation 35 03/01/24 01:56 99.0 F 82 16 104/59 L 97 Mechanical Ventilation 35 03/01/24 00:55 99.1 F 83 16 98/52 L 95 Mechanical Ventilation 35 03/01/24 00:01 35 03/01/24 00:00 35 02/29/24 23:59 99.1 F 81 16 116/58 L 96 Mechanical Ventilation 35 Anesthesia: General Mental Status: Sedated Pain Control: Satisfactory Nausea/Vomiting: None Hydration: Adequate Anesthesia-Related Issues: No Anes. Related Issues Comments: Pt coded in the OR after the procedure of trach. tube replacement due to misplacement. SaO2 severely desaturated and hemodynamically collapsed. Pt was resuscitated, trach. tube placement corrected, and pt was moved to ICU.
--- NOTE | 2024-03-01 12:45 | PM.CCPN ---
Subjective Subjective Date of Service: 03/01/24 Interval History: 83-year-old gentleman with underlying paroxysmal AFib on anticoagulation, CAD, congestive heart failure with EF was 45%, chronic renal disease stage III admitted on 02/09/2024 with alteration of mental status and acute hypoxic respiratory failure likely secondary to aspiration event requiring intubation and ventilatory support. Patient started on empiric antibiotics. CT head demonstrated no intracranial bleed. He was admitted to the intensive care unit. Patient initially extubated on 02/11/2024, but required re-intubation 02/12/2024 secondary to ongoing encephalopathy with aspiration. Now status post bronchoscopy with lavage for copious secretions on 02/15/2024. Hospital course further complicated by persistent encephalopathy/hospital-acquired delirium with inability to wean off mechanical ventilation. Now post tracheostomy/gastrostomy on 02/27/2024. Status post tracheostomy revision on 02/29/2024. Overnight AFib with RVR, now on amiodarone drip. Critical Care Time (minutes): 60 Physical Exam Vital Signs: Vital Signs: Last Vital Signs Temp 99.3 F 03/01/24 11:00 Pulse 136 H 03/01/24 11:00 Resp 19 03/01/24 11:00 BP 100/72 03/01/24 11:00 Pulse Ox 93 03/01/24 11:00 O2 Del Method Mechanical Ventil ation 03/01/24 11:00 O2 Flow Rate 30 02/20/24 20:00 FiO2 35 03/01/24 11:17 BMI result Body Mass Index 34.6 Const: General: no acute distress and other (Persistently encephalopathic) Eyes: Sclerae: sclerae normal EOM: EOMs intact bilaterally Neck: Neck: Yes tracheostomy present (On the vent) Resp: Auscultation: clear to auscultation bilaterally Cardio: Rate: tachycardic Rhythm: abnormal rhythm Heart sounds: no gallops, no murmurs and no rubs GI: Palpation (GI): Soft to palpation and Other GI palpation findings present ( Nontender) Auscultation: normal bowel sounds Extrem: General: No clubbing, No cyanosis and Yes edema (Trace bilateral) Objective Data Labs 03/01/24 05:05 03/01/24 05:05 Labs: Laboratory Results - last 24 hr 03/01/24 03/01/24 05:01 05:05 WBC 13.6 H RBC 3.61 L Hgb 10.3 L Hct 31.8 L MCV 88.1 MCH 28.5 MCHC 32.4 RDW 15.9 Plt Count 286 MPV 10.3 Immature Gran % (Auto) 0.5 H Neut % (Auto) 70.6 Lymph % (Auto) 13.9 L [place] % (Auto) 13.5 H Eos % (Auto) 1.1 Baso % (Auto) 0.4 Lymph # (Auto) 1.9 [place] # (Auto) 1.8 H Eos # (Auto) 0.2 Baso # (Auto) 0.1 Abs Immat Gran (auto) 0.07 H Absolute Neuts (auto) 9.6 H Absolute Nucleated RBC 0.000 Nucleated RBC % (auto) 0.0 Smear Tech's Comments VERIFIED VBG pH 7.50 H VBG pCO2 34 VBG pO2 40 VBG HCO3 27 H VBG O2 Saturation 60.0 VBG Base Excess 4.5 Sodium 144 Potassium 3.3 Chloride 105 Carbon Dioxide 24 Anion Gap 18 BUN 103 H Creatinine 2.31 H Estim Creat Clear Calc 28.6 Estimated GFR 27 Random Glucose 138 H Calcium 10.0 Phosphorus 5.3 H Magnesium 2.9 H Albumin 3.5 Microbiology Microbiology Results: Microbiology 02/12/24 14:34 Blood - Venous Blood Culture - Final No growth after 5 days. 02/12/24 14:34 Blood - Venous Blood Culture - Final No growth after 5 days. 02/09/24 13:28 Blood - Venous Blood Culture - Final No growth after 5 days. 02/09/24 13:28 Blood - Venous Blood Culture - Final Haemophilus influenzae Progress Note: A&P Assessment and plan (1) S/P percutaneous endoscopic gastrostomy (PEG) tube placement: Status: Acute (2) Status post tracheostomy: Status: Acute (3) Failure to wean from mechanical ventilation: Status: Acute (4) Encephalopathy: Status: Acute (5) Delirium: Status: Acute (6) Atrial fibrillation: Status: Acute (7) Coronary artery disease: Status: Acute (8) Cardiomyopathy: Status: Acute Plan Assessment: 83-year-old gentleman admitted with acute hypoxic respiratory failure and alteration of mental status likely secondary to aspiration event now with inability to wean from ventilatory support. Plan: Neuro: Hospital-acquired delirium/unspecified encephalopathy with poor improvement despite prolonged sedation vacation and essentially normal brain imaging. Cardiac: No acute issues. Underlying systolic congestive heart failure and AFib, chronic. Amiodarone drip for underlying AFib with RVR. Pulmonary: Acute hypoxic respiratory failure now requiring ventilatory support, with failure to wean from mechanical ventilation. Status post tracheostomy/parenteral gastrostomy on 02/27/2024 with revision on 02/29/2024. Continue to titrate off as tolerated. Renal: Slowly worsening renal function, non oliguric. Continue to monitor renal indices and urine output. IV fluid challenge. Endo: No acute issues. GI: No acute issues. ID: No acute issues. Heme/Onc: No acute issues. Psych: No acute issues. Miscellaneous: No acute issues. Prophylaxis: Apixaban Diet: Tube feeds Critical care time spent: 60 minutes Quality Stroke Does the patient have a stroke diagnosis?: No VTE Prior VTE?: No VTE Risk Level:: Medical - moderate - high VTE Device Contraindication: Treatment Not Indicated VTE Drug Contraindication: N/A - Med Ordered
--- NOTE | 2024-03-01 14:08 | HO.SKINPHOTO ---
Location: coccyx + buttocks Category: coccyx = DTI, Right and left buttocks = stage II pressure injury Location: anus Category: MDPI r/t rectal tube Location: palate of mouth Category: MDPI r/t ET tube (ET tube removed since trach placed 02/26)
[2024-03-01] MEDS: Amiodarone HCL 200 MG TABLET PO (14:54)
--- NOTE | 2024-03-01 16:07 | MHC.CM.PN ---
PT REMAINS IN ICU, S/P TRACH REVISION ON 02/28 AND SLOWLY WORSENING RENAL FUNCTION. [facility] PROVIDED WITH UPDATES VIA [facility] AND CM WILL CONTINUE TO FOLLOW FOR ANY CHANGE IN PLAN/NEEDS.
[2024-03-01] MEDS: Amiodarone/Dextrose 150 MG/100 ML PLAST..BAG 600 MG IV (19:26)
[2024-03-01] MEDS: Amiodarone HCL 900 MG in 0.9 % Sodium Chloride 500 ML 34.53 MG IVCONT (19:39)
[2024-03-02] VITALS (30 sets, daily range): BP systolic 87–136; BP diastolic 56–76; PULSE 71–134; RESP 14–20; TEMP 34.6–37.8; O2SAT 91–99; BMI 34.6
[2024-03-02] MEDS: Tetrahydrozoline HCl 0.05% Oph 15 ML DRPBTL 1 DROP EYE-BOTH (00:36)
[2024-03-02] MEDS: fentaNYL citrate/PF 100 MCG/2 ML VIAL 25 MCG IVPUSH (00:43)
[2024-03-02] MEDS: fentaNYL citrate/PF 100 MCG/2 ML VIAL 50 MCG IVPUSH ×3 (04:32→22:05)
--- NOTE | 2024-03-02 05:19 | HO.SKINPHOTO ---
Location: Rectum Category: MDPI Location: Medial Abdomen
[2024-03-02] MEDS: Levothyroxine Sodium 88 MCG TABLET PO (05:54)
[2024-03-02] MEDS: propofoL 1,000 MG/100 ML VIAL 6.37 MG IVCONT (05:57)
[2024-03-02 06:30] LABS: MANUAL DIFF FLAG NO
[2024-03-02 06:32] LABS: VBG Base Excess 4.4 mmol/L; VBG HCO3 27 mmol/L (22-26); VBG pCO2 34 mmHg; VBG pH 7.51 (7.32-7.43); VBG pO2 48 mmHg
[2024-03-02 06:32] LABS: Basophils Absolute Auto 0.1 X10*3/uL (0.0-0.2); Basophils Percent Auto 0.5 % (0-2); Eosinophils Absolute Auto 0.3 X10*3/uL (0.0-0.4); Eosinophils Percent Auto 3.6 % (0-4); Hematocrit 30.7 % (42.0-52.0); Hemoglobin 9.8 g/dl (14.0-18.0); Imm Gran Abs Auto 0.06 X10*3/uL (0.00-0.03); Imm Gran Pct Auto 0.7 % (0.0-0.4); Lymphocytes Absolute Auto 2.5 X10*3/uL (1.2-4.9); Lymphocytes Percent Auto 26.8 % (20-40); Mean Corpuscular HGB Conc 31.9 g/dl (31.0-36.0); Mean Corpuscular Hemoglobin 28.7 pg (27.0-33.0); Mean Corpuscular Volume 89.8 fL (80.0-98.0); Mean Platelet Volume 10.2 fL (9.4-12.4); Monocytes Absolute Auto 1.2 X10*3/uL (0.1-1.2); Monocytes Percent Auto 12.8 % (2-11); Neutrophils Absolute Auto 5.1 x10*3/uL (2.0-8.3); Neutrophils Percent Auto 55.6 % (45-73); Platelet Count 235 X10*3/uL (160-400); Red Blood Count 3.42 X10*6/uL (4.60-5.80); Red Cell Distribution Width 15.9 % (11.0-16.0); White Blood Count 9.2 X10*3/uL (4.8-10.8)
[2024-03-02 07:00] LABS: Alanine Aminotransferase 74 U/L (0-40); Albumin Level 3.1 g/dL (3.5-5.0); Alkaline Phosphatase 136 U/L (39-117); Anion Gap 21 (12-20); Aspartate Amino Transferase 72 U/L (5-37); Bilirubin Total 0.5 mg/dL (0.0-1.0); Blood Urea Nitrogen 88 mg/dL (9-16); Calcium 9.8 mg/dL (8.4-10.2); Carbon Dioxide 20 mmol/L (22-29); Chloride 108 mmol/L (96-108); Creatinine Clr Calc Pharmacy 34.5; Estimated Glomerular Filt Rate 34; Glucose Random 137 mg/dL (60-115); Magnesium 2.7 mg/dL (1.6-2.6); Potassium 3.6 mmol/L (3.3-5.1); Sodium 145 mmol/L (135-145); Total Protein 6.9 g/dL (6.5-8.0)
[2024-03-02] MEDS: 0.9 % Sodium Chloride Flush 10 ML SYRINGE IVFLUSH ×2 (08:22→15:59)
[2024-03-02] MEDS: Apixaban 2.5 MG TABLET PO ×2 (08:36→19:42)
[2024-03-02] MEDS: amLODIPine Besylate 10 MG TABLET PO (08:36)
[2024-03-02] MEDS: Chlorhexidine Gluc Oral Rinse 15 ML MOUTHWASH BUCCAL ×3 (08:36→19:36)
[2024-03-02 08:47] LABS: VBG Base Excess 4.3 mmol/L; VBG HCO3 26 mmol/L (22-26); VBG pCO2 29 mmHg; VBG pH 7.54 (7.32-7.43); VBG pO2 58 mmHg
--- NOTE | 2024-03-02 09:56 | P.PNCC_ITS ---
Subjective Subjective Date of Service: 03/02/24 Interval History: 83-year-old gentleman with underlying paroxysmal AFib on anticoagulation, CAD, congestive heart failure with EF was 45%, chronic renal disease stage III admitted on 02/09/2024 with alteration of mental status and acute hypoxic respiratory failure likely secondary to aspiration event requiring intubation and ventilatory support. Patient started on empiric antibiotics. CT head demonstrated no intracranial bleed. He was admitted to the intensive care unit. Patient initially extubated on 02/11/2024, but required re-intubation 02/12/2024 secondary to ongoing encephalopathy with aspiration. Now status post bronchoscopy with lavage for copious secretions on 02/15/2024. Hospital course further complicated by persistent encephalopathy/hospital-acquired delirium with inability to wean off mechanical ventilation. Now post tracheostomy/gastrostomy on 02/27/2024. Status post tracheostomy revision on 02/29/2024. No events overnight. RVR resolved with amiodarone drip. Renal function improved with fluid challenge. Critical Care Time (minutes): 60 Physical Exam 2 Vital Signs: Vital Signs: Last Vital Signs Temp 98.8 F 03/02/24 09:00 Pulse 76 03/02/24 09:00 Resp 16 03/02/24 09:00 BP 136/59 L 03/02/24 09:00 Pulse Ox 98 03/02/24 09:00 O2 Del Method Mechanical Ventil ation 03/02/24 09:00 O2 Flow Rate 30 02/20/24 20:00 FiO2 35 03/02/24 09:00 BMI result Body Mass Index 34.6 Const: General: no acute distress and other (Encephalopathic) Eyes: Sclerae: sclerae normal EOM: EOMs intact bilaterally Neck: Neck: Yes no lymphadenopathy and Yes tracheostomy present (On vent) Resp: Auscultation: clear to auscultation bilaterally Cardio: Rate: regular rate Rhythm: abnormal rhythm Heart sounds: no gallops, no murmurs and no rubs GI: Inspection: Yes G-tube present Palpation (GI): Soft to palpation and Other GI palpation findings present ( Nontender) Auscultation: normal bowel sounds Extrem: General: Yes no pedal edema, No clubbing and No cyanosis Objective Data Labs 03/02/24 06:20 03/02/24 06:20 Labs: Laboratory Results - last 24 hr 03/02/24 03/02/24 03/02/24 06:20 06:22 08:38 WBC 9.2 RBC 3.42 L Hgb 9.8 L Hct 30.7 L MCV 89.8 MCH 28.7 MCHC 31.9 RDW 15.9 Plt Count 235 MPV 10.2 Immature Gran % (Auto) 0.7 H Neut % (Auto) 55.6 Lymph % (Auto) 26.8 [place] % (Auto) 12.8 H Eos % (Auto) 3.6 Baso % (Auto) 0.5 Lymph # (Auto) 2.5 [place] # (Auto) 1.2 Eos # (Auto) 0.3 Baso # (Auto) 0.1 Abs Immat Gran (auto) 0.06 H Absolute Neuts (auto) 5.1 Absolute Nucleated RBC 0.000 Nucleated RBC % (auto) 0.0 VBG pH 7.51 H 7.54 H VBG pCO2 34 29 VBG pO2 48 58 VBG HCO3 27 H 26 VBG O2 Saturation 74.0 86.0 VBG Base Excess 4.4 4.3 Sodium 145 Potassium 3.6 Chloride 108 Carbon Dioxide 20 L Anion Gap 21 H BUN 88 H Creatinine 1.91 H Estim Creat Clear Calc 34.5 Estimated GFR 34 Random Glucose 137 H Calcium 9.8 Phosphorus 4.0 Magnesium 2.7 H Total Bilirubin 0.5 AST 72 H ALT 74 H Alkaline Phosphatase 136 H Total Protein 6.9 Albumin 3.1 L Microbiology Microbiology Results: Microbiology 02/12/24 14:34 Blood - Venous Blood Culture - Final No growth after 5 days. 02/12/24 14:34 Blood - Venous Blood Culture - Final No growth after 5 days. 02/09/24 13:28 Blood - Venous Blood Culture - Final No growth after 5 days. 02/09/24 13:28 Blood - Venous Blood Culture - Final Haemophilus influenzae Progress Note: A&P Assessment and plan (1) S/P percutaneous endoscopic gastrostomy (PEG) tube placement: Status: Acute (2) Status post tracheostomy: Status: Acute (3) Failure to wean from mechanical ventilation: Status: Acute (4) Encephalopathy: Status: Acute (5) Atrial fibrillation: Status: Acute (6) Coronary artery disease: Status: Acute (7) Cardiomyopathy: Status: Acute Plan Assessment: 83-year-old gentleman admitted with acute hypoxic respiratory failure and alteration of mental status likely secondary to aspiration event now with inability to wean from ventilatory support. Plan: Neuro: Hospital-acquired delirium/unspecified encephalopathy with poor improvement despite prolonged sedation vacation and essentially normal brain imaging. Cardiac: No acute issues. Underlying chronic systolic congestive heart failure. AFib with bouts of RVR, now on amiodarone drip, will transition to p.o. amiodarone. Pulmonary: Acute hypoxic respiratory failure now requiring ventilatory support, with failure to wean from mechanical ventilation. Status post tracheostomy/parenteral gastrostomy on 02/27/2024 with revision on 02/29/2024. Continue to titrate off as tolerated. Renal: Renal function improved with IV fluid challenge. Non oliguric. Continue to monitor renal indices and urine output. Endo: No acute issues. GI: No acute issues. ID: No acute issues. Heme/Onc: No acute issues. Psych: No acute issues. Miscellaneous: No acute issues. Prophylaxis: Apixaban Diet: Tube feeds Critical care time spent: 60 minutes Quality Stroke Does the patient have a stroke diagnosis?: No VTE Prior VTE?: No VTE Risk Level:: Medical - moderate - high VTE Device Contraindication: Treatment Not Indicated VTE Drug Contraindication: N/A - Med Ordered
--- NOTE | 2024-03-02 14:11 | MHC.CM.PN ---
Pt continues on trach/vent after trach revision from dislodged tube. Pt has been referred to [facility] for LTACH needs: Facility is asking for vent requirements to be less than 40 FiO2 with progress toward trach collar trials. Clinical updates to be remitted on Monday for transfer consideration. CM to follow
[2024-03-02 15:48] LABS: Venous Blood Gas Refer to POC result
[2024-03-02] MEDS: Amiodarone HCL 900 MG in 0.9 % Sodium Chloride 500 ML 17.27 MG IVCONT (19:37)
[2024-03-03] VITALS (32 sets, daily range): BP systolic 82–140; BP diastolic 44–78; PULSE 66–127; RESP 16–26; TEMP 34.7–37.8; O2SAT 91–100; BMI 34.6
[2024-03-03] MEDS: fentaNYL citrate/PF 100 MCG/2 ML VIAL 50 MCG IVPUSH ×4 (01:02→09:22)
[2024-03-03] MEDS: Levothyroxine Sodium 88 MCG TABLET PO (05:14)
[2024-03-03 05:28] LABS: VBG Base Excess 3.1 mmol/L; VBG HCO3 25 mmol/L (22-26); VBG pCO2 31 mmHg; VBG pH 7.51 (7.32-7.43); VBG pO2 40 mmHg
[2024-03-03 05:56] LABS: MANUAL DIFF FLAG NO
[2024-03-03 06:19] LABS: Anion Gap 17 (12-20); Blood Urea Nitrogen 71 mg/dL (9-16); Calcium 9.6 mg/dL (8.4-10.2); Carbon Dioxide 22 mmol/L (22-29); Chloride 112 mmol/L (96-108); Creatinine Clr Calc Pharmacy 44.3; Estimated Glomerular Filt Rate 45; Glucose Random 119 mg/dL (60-115); Magnesium 2.5 mg/dL (1.6-2.6); Phosphorus 4.1 mg/dL (2.7-4.5); Potassium 3.4 mmol/L (3.3-5.1); Sodium 148 mmol/L (135-145)
[2024-03-03 06:27] LABS: Basophils Percent Auto 0.5 % (0-2); Eosinophils Absolute Auto 0.3 X10*3/uL (0.0-0.4); Eosinophils Percent Auto 3.7 % (0-4); Hematocrit 30.3 % (42.0-52.0); Hemoglobin 9.4 g/dl (14.0-18.0); Imm Gran Abs Auto 0.05 X10*3/uL (0.00-0.03); Imm Gran Pct Auto 0.6 % (0.0-0.4); Lymphocytes Absolute Auto 2.2 X10*3/uL (1.2-4.9); Lymphocytes Percent Auto 25.4 % (20-40); Mean Corpuscular Volume 90.2 fL (80.0-98.0); Mean Platelet Volume 10.5 fL (9.4-12.4); Monocytes Absolute Auto 1.1 X10*3/uL (0.1-1.2); Monocytes Percent Auto 12.9 % (2-11); Neutrophils Absolute Auto 4.9 x10*3/uL (2.0-8.3); Neutrophils Percent Auto 56.9 % (45-73); Platelet Count 237 X10*3/uL (160-400); Red Blood Count 3.36 X10*6/uL (4.60-5.80); White Blood Count 8.6 X10*3/uL (4.8-10.8)
[2024-03-03] MEDS: Chlorhexidine Gluc Oral Rinse 15 ML MOUTHWASH BUCCAL ×3 (08:24→20:11)
[2024-03-03] MEDS: Apixaban 2.5 MG TABLET PO ×2 (08:24→20:11)
[2024-03-03] MEDS: 0.9 % Sodium Chloride Flush 10 ML SYRINGE IVFLUSH ×4 (08:24→23:54)
[2024-03-03] MEDS: amLODIPine Besylate 10 MG TABLET PO (08:25)
--- NOTE | 2024-03-03 09:20 | P.PNCC_ITS ---
Subjective Subjective Date of Service: 03/03/24 Interval History: 83-year-old gentleman with underlying paroxysmal AFib on anticoagulation, CAD, congestive heart failure with EF was 45%, chronic renal disease stage III admitted on 02/09/2024 with alteration of mental status and acute hypoxic respiratory failure likely secondary to aspiration event requiring intubation and ventilatory support. Patient started on empiric antibiotics. CT head demonstrated no intracranial bleed. He was admitted to the intensive care unit. Patient initially extubated on 02/11/2024, but required re-intubation 02/12/2024 secondary to ongoing encephalopathy with aspiration. Now status post bronchoscopy with lavage for copious secretions on 02/15/2024. Hospital course further complicated by persistent encephalopathy/hospital-acquired delirium with inability to wean off mechanical ventilation. Now post tracheostomy/gastrostomy on 02/27/2024. Status post tracheostomy revision on 02/29/2024. No events overnight. Critical Care Time (minutes): 60 Physical Exam 2 Vital Signs: Vital Signs: Last Vital Signs Temp 99.7 F 03/03/24 09:00 Pulse 75 03/03/24 09:00 Resp 16 03/03/24 09:00 BP 131/74 03/03/24 09:00 Pulse Ox 97 03/03/24 09:00 O2 Del Method Mechanical Ventil ation 03/03/24 09:00 O2 Flow Rate 30 02/20/24 20:00 FiO2 35 03/03/24 09:00 BMI result Body Mass Index 34.6 Const: General: no acute distress and other (encephalopathic) Eyes: Sclerae: sclerae normal EOM: EOMs intact bilaterally Neck: Neck: Yes no lymphadenopathy and Yes tracheostomy present (On vent) Resp: Auscultation: clear to auscultation bilaterally Cardio: Rate: regular rate Rhythm: abnormal rhythm irregularly irregular Heart sounds: no gallops, no murmurs and no rubs GI: Inspection: Yes G-tube present Palpation (GI): Soft to palpation and Other GI palpation findings present ( Nontender) Auscultation: normal bowel sounds Extrem: General: No clubbing, No cyanosis and Yes edema (Trace bilateral) Objective Data Labs 03/03/24 05:22 03/03/24 05:22 Labs: Laboratory Results - last 24 hr 03/03/24 03/03/24 05:18 05:22 WBC 8.6 RBC 3.36 L Hgb 9.4 L Hct 30.3 L MCV 90.2 MCH 28.0 MCHC 31.0 RDW 16.0 Plt Count 237 MPV 10.5 Immature Gran % (Auto) 0.6 H Neut % (Auto) 56.9 Lymph % (Auto) 25.4 [place] % (Auto) 12.9 H Eos % (Auto) 3.7 Baso % (Auto) 0.5 Lymph # (Auto) 2.2 [place] # (Auto) 1.1 Eos # (Auto) 0.3 Baso # (Auto) 0.0 Abs Immat Gran (auto) 0.05 H Absolute Neuts (auto) 4.9 Absolute Nucleated RBC 0.000 Nucleated RBC % (auto) 0.0 VBG pH 7.51 H VBG pCO2 31 VBG pO2 40 VBG HCO3 25 VBG O2 Saturation 63.0 VBG Base Excess 3.1 Sodium 148 H Potassium 3.4 Chloride 112 H Carbon Dioxide 22 Anion Gap 17 BUN 71 H Creatinine 1.49 H Estim Creat Clear Calc 44.3 Estimated GFR 45 Random Glucose 119 H Calcium 9.6 Phosphorus 4.1 Magnesium 2.5 Albumin 3.0 L Microbiology Microbiology Results: Microbiology 02/12/24 14:34 Blood - Venous Blood Culture - Final No growth after 5 days. 02/12/24 14:34 Blood - Venous Blood Culture - Final No growth after 5 days. 02/09/24 13:28 Blood - Venous Blood Culture - Final No growth after 5 days. 02/09/24 13:28 Blood - Venous Blood Culture - Final Haemophilus influenzae Progress Note: A&P Assessment and plan (1) S/P percutaneous endoscopic gastrostomy (PEG) tube placement: Status: Acute (2) Status post tracheostomy: Status: Acute (3) Failure to wean from mechanical ventilation: Status: Acute (4) Encephalopathy: Status: Acute (5) Coronary artery disease: Status: Acute (6) PAF (paroxysmal atrial fibrillation): Status: Acute (7) Cardiomyopathy: Status: Acute Plan Assessment: 83-year-old gentleman admitted with acute hypoxic respiratory failure and alteration of mental status likely secondary to aspiration event now with inability to wean from ventilatory support. Plan: Neuro: Hospital-acquired delirium/unspecified encephalopathy with poor improvement despite prolonged sedation vacation and essentially normal brain imaging. Cardiac: No acute issues. Underlying chronic systolic congestive heart failure. AFib with bouts of RVR, now on amiodarone drip. Pulmonary: Acute hypoxic respiratory failure now requiring ventilatory support, with failure to wean from mechanical ventilation. Status post tracheostomy/parenteral gastrostomy on 02/27/2024 with revision on 02/29/2024. Continue to titrate off as tolerated. Renal: Renal function improved with IV fluid challenge. Non oliguric. Continue to monitor renal indices and urine output. Endo: No acute issues. GI: No acute issues. ID: No acute issues. Heme/Onc: No acute issues. Psych: No acute issues. Miscellaneous: No acute issues. Prophylaxis: Apixaban Diet: Tube feeds Critical care time spent: 60 minutes Quality Stroke Does the patient have a stroke diagnosis?: No VTE Prior VTE?: No VTE Risk Level:: Medical - moderate - high VTE Device Contraindication: Treatment Not Indicated VTE Drug Contraindication: N/A - Med Ordered
--- NOTE | 2024-03-03 10:30 | MHC.CM.PN ---
Pt continues on ventilatory support in ICU: trach revision on 02/28: maintaining FiO2 of 35% - clinical updates remitted to [facility] for eventual transfer when medically stable
[2024-03-03 21:45] LABS: Venous Blood Gas Refer to POC result
[2024-03-04] VITALS (27 sets, daily range): BP systolic 123–156; BP diastolic 48–73; PULSE 67–81; RESP 10–21; TEMP 34.5–37.5; O2SAT 97–100; BMI 34.4
[2024-03-04] MEDS: Amiodarone HCL 900 MG in 0.9 % Sodium Chloride 500 ML 17.27 MG IVCONT (01:18)
[2024-03-04] MEDS: Levothyroxine Sodium 88 MCG TABLET PO (06:03)
[2024-03-04 06:07] LABS: MANUAL DIFF FLAG NO
[2024-03-04 06:11] LABS: Basophils Percent Auto 0.5 % (0-2); Eosinophils Absolute Auto 0.3 X10*3/uL (0.0-0.4); Eosinophils Percent Auto 3.5 % (0-4); Hematocrit 29.3 % (42.0-52.0); Hemoglobin 9.4 g/dl (14.0-18.0); Imm Gran Abs Auto 0.04 X10*3/uL (0.00-0.03); Imm Gran Pct Auto 0.5 % (0.0-0.4); Lymphocytes Absolute Auto 2.1 X10*3/uL (1.2-4.9); Lymphocytes Percent Auto 25.3 % (20-40); Mean Corpuscular HGB Conc 32.1 g/dl (31.0-36.0); Mean Corpuscular Hemoglobin 28.5 pg (27.0-33.0); Mean Corpuscular Volume 88.8 fL (80.0-98.0); Monocytes Absolute Auto 0.9 X10*3/uL (0.1-1.2); Monocytes Percent Auto 10.3 % (2-11); Neutrophils Percent Auto 59.9 % (45-73); Platelet Count 213 X10*3/uL (160-400); White Blood Count 8.4 X10*3/uL (4.8-10.8)
[2024-03-04 06:12] LABS: VBG Base Excess 6.7 mmol/L; VBG HCO3 27 mmol/L (22-26); VBG pCO2 25 mmHg; VBG pH 7.63 (7.32-7.43); VBG pO2 49 mmHg
[2024-03-04 06:14] LABS: Venous Blood Gas Refer to POC result
[2024-03-04 06:30] LABS: Anion Gap 15 (12-20); Blood Urea Nitrogen 62 mg/dL (9-16); Calcium 9.8 mg/dL (8.4-10.2); Carbon Dioxide 22 mmol/L (22-29); Chloride 113 mmol/L (96-108); Creatinine Clr Calc Pharmacy 47.5; Estimated Glomerular Filt Rate 49; Glucose Random 115 mg/dL (60-115); Magnesium 2.3 mg/dL (1.6-2.6); Phosphorus 2.9 mg/dL (2.7-4.5); Potassium 3.1 mmol/L (3.3-5.1); Sodium 147 mmol/L (135-145)
[2024-03-04] MEDS: 0.9 % Sodium Chloride Flush 10 ML SYRINGE IVFLUSH ×3 (08:02→20:21)
[2024-03-04] MEDS: Albumin Human 25 % 100 ML IV (08:02)
[2024-03-04] MEDS: Potassium Chloride Packet 20 MEQ PACKET 40 MEQ PO (08:02)
[2024-03-04] MEDS: Chlorhexidine Gluc Oral Rinse 15 ML MOUTHWASH BUCCAL ×3 (08:03→20:25)
[2024-03-04] MEDS: amLODIPine Besylate 10 MG TABLET PO (08:03)
[2024-03-04] MEDS: Apixaban 2.5 MG TABLET PO ×2 (08:03→20:25)
--- NOTE | 2024-03-04 10:36 | MHC.CLN ---
F/U DISCUSSED AT ROUNDS WITH NEPRO CURRENTLY AT 30 ML PER HOUR WITH FREE WATER FLUSHES 240 ML Q 6 HOURS. RECOMMEND ADVANCE TF FORMULA ABLE TO NEPRO AT MAX GOAL RATE 45ML/HR TO PROVIDE 1944KCALS (23KCALS/KG BASED ON CMW), 87G PROTEIN (1.0G/KG), 785ML FREE WATER FROM FORMULA, 1745 ML (24 ML/KG IBW) TOTAL FREE WATER FROM FORMULA AND FLUSHES. MONITOR TOLERANCE AND LYTES.
--- NOTE | 2024-03-04 11:36 | PM.CCPN ---
Subjective Subjective Date of Service: 03/04/24 Interval History: On ventilator support this morning Off sedation, moving his head around On amiodarone drip for management of AFib with RVR Critical Care Time (minutes): 40 Physical Exam Vital Signs: Vital Signs: Last Vital Signs Temp 98.8 F 03/04/24 11:00 Pulse 74 03/04/24 11:00 Resp 20 03/04/24 11:00 BP 135/57 L 03/04/24 11:00 Pulse Ox 99 03/04/24 11:00 O2 Del Method Mechanical Ventil ation 03/04/24 11:00 O2 Flow Rate 30 02/20/24 20:00 FiO2 30 03/04/24 11:00 BMI result Body Mass Index 34.4 General: acute distress, ill appearing and tired appearing Nutritional Appearance: well nourished and overweight Eyes: appearance normal, both eyes and all related structures; Alignment and Position: alignment normal and position normal Neck: No lymphadenopathy, no thyromegaly Resp: bilateral air entry equal, occasional added sounds present Cardio: Regular rate, regular rhythm; Heart sounds: S1 normal heart sound present and S2 normal heart sound present GI: soft, nontender, no guarding, no hepatosplenomegaly : bladder normal to inspection, bladder normal to palpation, no renal angle tenderness Skin: no rashes or lesions noted and elasticity normal Neuro: No focal deficits, moves some of his extremities, mental status better than earlier as he opens his eyes spontaneously and looks around Objective Data Labs 03/04/24 06:00 03/04/24 06:00 Labs: Laboratory Results - last 24 hr 03/04/24 03/04/24 05:59 06:00 WBC 8.4 RBC 3.30 L Hgb 9.4 L Hct 29.3 L MCV 88.8 MCH 28.5 MCHC 32.1 RDW 16.0 Plt Count 213 MPV 10.0 Immature Gran % (Auto) 0.5 H Neut % (Auto) 59.9 Lymph % (Auto) 25.3 [place] % (Auto) 10.3 Eos % (Auto) 3.5 Baso % (Auto) 0.5 Lymph # (Auto) 2.1 [place] # (Auto) 0.9 Eos # (Auto) 0.3 Baso # (Auto) 0.0 Abs Immat Gran (auto) 0.04 H Absolute Neuts (auto) 5.0 Absolute Nucleated RBC 0.000 Nucleated RBC % (auto) 0.0 VBG pH 7.63 H* VBG pCO2 25 VBG pO2 49 VBG HCO3 27 H VBG O2 Saturation 81.0 VBG Base Excess 6.7 Sodium 147 H Potassium 3.1 L Chloride 113 H Carbon Dioxide 22 Anion Gap 15 BUN 62 H Creatinine 1.39 Estim Creat Clear Calc 47.5 Estimated GFR 49 Random Glucose 115 Calcium 9.8 Phosphorus 2.9 Magnesium 2.3 Albumin 3.0 L Microbiology Microbiology Results: Microbiology 02/12/24 14:34 Blood - Venous Blood Culture - Final No growth after 5 days. 02/12/24 14:34 Blood - Venous Blood Culture - Final No growth after 5 days. 02/09/24 13:28 Blood - Venous Blood Culture - Final No growth after 5 days. 02/09/24 13:28 Blood - Venous Blood Culture - Final Haemophilus influenzae Progress Note: A&P Assessment and plan (1) Status post tracheostomy: Status: Acute (2) Delirium: Status: Acute (3) Encephalopathy: Status: Acute (4) Atrial fibrillation: Status: Acute (5) Coronary artery disease: Status: Acute (6) Acute respiratory failure with hypoxia: Status: Acute (7) Aspiration pneumonia: Status: Acute Plan Neuro: Acute encephalopathy possibly due to metabolic encephalopathy, mental status slowly improving We will get an MRI of the brain to rule out any underlying ischemic events On as needed propofol, we will keep him off propofol as much as he can tolerate Close neurological status monitoring in the ICU every hour Cardiac: Atrial fibrillation with RVR: Currently rate controlled with amiodarone drip We will switch amiodarone drip to p.o. amiodarone 400 mg b.i.d. for another 9 days and then switch to 200 mg Apixaban for anticoagulation Respiratory: Acute hypoxemic respiratory failure due to aspiration pneumonia Currently on ventilator support On PRVC mode FiO2[30%], PEEP 5, TV 450, RR 20 Status post tracheostomy and PEG tube placement on February 27, 2024 We will switch him to pressor support and leave him on pressor support as tolerated and wean him off the ventilator if he does well Peak pressures and plateau pressures are under the curve Ventilator management bundle with head end elevation, aspiration precaution, chlorhexidine mouthwash, daily awakening trials, daily spontaneous breathing trials GI: Continue Nepro at 30 mL/hour, we will not increase dose due to high-risk for aspiration Renal: Acute kidney injury possibly secondary to ATN Baseline creatinine normal, creatinine today is 1.39 We will closely monitor I's and O's Avoid nephrotoxic medications Hypernatremia: Sodium down to 147 this morning Continue water flushes at 120 mL q.6 hours Heme: Chronic anemia, closely monitor H&H, transfuse for hemoglobin less than 7 grams/deciliter Endocrine: Blood sugars under control Sliding scale insulin as needed Hypothyroidism: Continue levothyroxine Infectious disease: Pancultures negative so far, not on any antibiotics Musculoskeletal: Decubitus ulcer prevention protocol Stage II decubitus ulcers on the buttocks, small wound on coccyx Lines: Unable to remove Jamison due to urinary retention Prophylaxis: Heparin, pantoprazole Critical care time spent is about 40 minutes on ventilator management, changing ventilator settings, weaning from ventilator, pressor support trials, close hemodynamic monitoring, close neurological status monitoring Quality Stroke Does the patient have a stroke diagnosis?: No VTE Prior VTE?: No VTE Risk Level:: Medical - moderate - high VTE Device Contraindication: Treatment Not Indicated VTE Drug Contraindication: N/A - Med Ordered
--- NOTE | 2024-03-04 11:38 | PC.RT ---
placed on 40% T-Piece. MD/RN aware. Tolerating well at this time. suctioning for small amount of thick, cream colored secretions. SpO2-98%, HR-77, BP 123/61
[2024-03-04] MEDS: Amiodarone HCL 200 MG TABLET 400 MG PO ×2 (11:49→20:25)
--- NOTE | 2024-03-04 16:02 | MHC.CM.PN ---
PT REMAINS IN ICU ON VENTILATORY SUPPORT S/P TRACH/PEG. SEDATION OFF. PLAN FOR ATTEMPTS TO WEAN OFF VENT PER NOTES. [facility] UPDATED VIA [facility]. CM WILL CONTINUE TO FOLLOW FOR PLAN.
[2024-03-05] VITALS (27 sets, daily range): BP systolic 97–151; BP diastolic 44–109; PULSE 65–89; RESP 11–25; TEMP 33.5–37.6; O2SAT 97–100; BMI 34.5
[2024-03-05 05:27] LABS: VBG Base Excess 4.9 mmol/L; VBG HCO3 25 mmol/L (22-26); VBG pCO2 25 mmHg; VBG pO2 40 mmHg
[2024-03-05 05:31] LABS: Venous Blood Gas Refer to POC result
[2024-03-05] MEDS: Levothyroxine Sodium 88 MCG TABLET PO (05:36)
[2024-03-05 05:47] LABS: MANUAL DIFF FLAG NO
[2024-03-05 05:48] LABS: Basophils Percent Auto 0.3 % (0-2); Eosinophils Absolute Auto 0.4 X10*3/uL (0.0-0.4); Eosinophils Percent Auto 5.9 % (0-4); Hematocrit 28.3 % (42.0-52.0); Hemoglobin 8.9 g/dl (14.0-18.0); Imm Gran Abs Auto 0.03 X10*3/uL (0.00-0.03); Imm Gran Pct Auto 0.5 % (0.0-0.4); Lymphocytes Absolute Auto 1.9 X10*3/uL (1.2-4.9); Lymphocytes Percent Auto 30.3 % (20-40); Mean Corpuscular HGB Conc 31.4 g/dl (31.0-36.0); Mean Corpuscular Hemoglobin 28.5 pg (27.0-33.0); Mean Corpuscular Volume 90.7 fL (80.0-98.0); Mean Platelet Volume 10.2 fL (9.4-12.4); Monocytes Absolute Auto 0.6 X10*3/uL (0.1-1.2); Monocytes Percent Auto 9.8 % (2-11); Neutrophils Absolute Auto 3.3 x10*3/uL (2.0-8.3); Neutrophils Percent Auto 53.2 % (45-73); Platelet Count 186 X10*3/uL (160-400); Red Blood Count 3.12 X10*6/uL (4.60-5.80); Red Cell Distribution Width 16.3 % (11.0-16.0); White Blood Count 6.1 X10*3/uL (4.8-10.8)
[2024-03-05 06:06] LABS: Alanine Aminotransferase 52 U/L (0-40); Albumin Level 3.1 g/dL (3.5-5.0); Alkaline Phosphatase 100 U/L (39-117); Anion Gap 15 (12-20); Aspartate Amino Transferase 38 U/L (5-37); Bilirubin Total 0.5 mg/dL (0.0-1.0); Blood Urea Nitrogen 42 mg/dL (9-16); Calcium 9.5 mg/dL (8.4-10.2); Carbon Dioxide 21 mmol/L (22-29); Chloride 116 mmol/L (96-108); Creatinine Clr Calc Pharmacy 56.4; Estimated Glomerular Filt Rate 59; Glucose Random 106 mg/dL (60-115); Magnesium 2.1 mg/dL (1.6-2.6); Phosphorus 3.1 mg/dL (2.7-4.5); Potassium 3.4 mmol/L (3.3-5.1); Sodium 149 mmol/L (135-145); Total Protein 6.5 g/dL (6.5-8.0)
[2024-03-05] MEDS: amLODIPine Besylate 10 MG TABLET PO (08:46)
[2024-03-05] MEDS: 0.9 % Sodium Chloride Flush 10 ML SYRINGE IVFLUSH ×2 (08:46→16:11)
[2024-03-05] MEDS: Chlorhexidine Gluc Oral Rinse 15 ML MOUTHWASH BUCCAL ×3 (08:47→21:04)
[2024-03-05] MEDS: Apixaban 2.5 MG TABLET PO ×2 (08:47→21:04)
[2024-03-05] MEDS: Amiodarone HCL 200 MG TABLET 400 MG PO ×2 (08:47→21:04)
--- NOTE | 2024-03-05 08:53 | P.PNCC_ITS ---
Subjective Subjective Date of Service: 03/05/24 Interval History: No new events overnight He remained on trach collar during the day but needed ventilator support during the night. He had episodes of apnea while on the pressor support on the ventilator, had to be switched to a control mode Critical Care Time (minutes): 35 Physical Exam 2 Vital Signs: Vital Signs: Last Vital Signs Temp 99.7 F 03/05/24 07:58 Pulse 73 03/05/24 07:58 Resp 20 03/05/24 07:58 BP 142/57 H 03/05/24 07:58 Pulse Ox 98 03/05/24 07:58 O2 Del Method Mechanical Ventil ation 03/05/24 07:58 O2 Flow Rate 30 03/05/24 01:00 FiO2 30 03/05/24 07:58 BMI result Body Mass Index 34.5 General: Patient in acute distress, ill appearing and tired appearing Nutritional Appearance: well nourished and overweight Eyes: appearance normal, both eyes and all related structures; Alignment and Position: alignment normal and position normal Neck: No lymphadenopathy, no thyromegaly, tracheostomy site looks okay Resp: bilateral air entry equal, air entry improved in the left lung when compared to the past Cardio: Regular rate, regular rhythm; Heart sounds: S1 normal heart sound present and S2 normal heart sound present GI: soft, nontender, no guarding, no hepatosplenomegaly : bladder normal to inspection, bladder normal to palpation, no renal angle tenderness Skin: no rashes or lesions noted and elasticity normal Neuro: Confused, moves all extremities Objective Data Labs 03/05/24 05:25 03/05/24 05:25 Labs: Laboratory Results - last 24 hr 03/05/24 03/05/24 05:18 05:25 WBC 6.1 RBC 3.12 L Hgb 8.9 L Hct 28.3 L MCV 90.7 MCH 28.5 MCHC 31.4 RDW 16.3 H Plt Count 186 MPV 10.2 Immature Gran % (Auto) 0.5 H Neut % (Auto) 53.2 Lymph % (Auto) 30.3 [place] % (Auto) 9.8 Eos % (Auto) 5.9 H Baso % (Auto) 0.3 Lymph # (Auto) 1.9 [place] # (Auto) 0.6 Eos # (Auto) 0.4 Baso # (Auto) 0.0 Abs Immat Gran (auto) 0.03 Absolute Neuts (auto) 3.3 Absolute Nucleated RBC 0.000 Nucleated RBC % (auto) 0.0 VBG pH 7.60 H* VBG pCO2 25 VBG pO2 40 VBG HCO3 25 VBG O2 Saturation 67.0 VBG Base Excess 4.9 Sodium 149 H Potassium 3.4 Chloride 116 H Carbon Dioxide 21 L Anion Gap 15 BUN 42 H Creatinine 1.17 Estim Creat Clear Calc 56.4 Estimated GFR 59 Random Glucose 106 Calcium 9.5 Phosphorus 3.1 Magnesium 2.1 Total Bilirubin 0.5 AST 38 H ALT 52 H Alkaline Phosphatase 100 Total Protein 6.5 Albumin 3.1 L Microbiology Microbiology Results: Microbiology 02/12/24 14:34 Blood - Venous Blood Culture - Final No growth after 5 days. 02/12/24 14:34 Blood - Venous Blood Culture - Final No growth after 5 days. 02/09/24 13:28 Blood - Venous Blood Culture - Final No growth after 5 days. 02/09/24 13:28 Blood - Venous Blood Culture - Final Haemophilus influenzae Progress Note: A&P Assessment and plan (1) S/P percutaneous endoscopic gastrostomy (PEG) tube placement: Status: Acute (2) Status post tracheostomy: Status: Acute (3) Encephalopathy: Status: Acute (4) Atrial fibrillation: Status: Acute (5) Coronary artery disease: Status: Acute (6) Acute respiratory failure with hypoxia: Status: Acute Plan Neuro: Acute encephalopathy possibly due to metabolic encephalopathy, mental status slowly improving Pending MRI of the brain to rule out any underlying ischemic events will take off propofol and we will do Precedex if needed Close neurological status monitoring in the ICU every hour Cardiac: Atrial fibrillation with RVR: Currently rate controlled with amiodarone drip On amiodarone 400 mg b.i.d. for 8 more days to complete 10gm loading dose and then switch to 200 mg Apixaban for anticoagulation Respiratory: Acute hypoxemic respiratory failure due to aspiration pneumonia Currently on ventilator support On PRVC mode FiO2[30%], PEEP 5, TV 450, RR 20 Status post tracheostomy and PEG tube placement on February 27, 2024 will try to keep him on trach collar as tolerated during the day and controlled mode of ventilation during the night Peak pressures and plateau pressures are under the curve Ventilator management bundle with head end elevation, aspiration precaution, chlorhexidine mouthwash, daily awakening trials, daily spontaneous breathing trials GI: Continue Nepro at 30 mL/hour, we will not increase dose due to high-risk for aspiration Renal: Acute kidney injury possibly secondary to ATN Baseline creatinine normal, creatinine today is 1.39 We will closely monitor I's and O's Avoid nephrotoxic medications Hypernatremia: Sodium upto 149 this morning Continue water flushes at 120 ml q6h will change to D5W at 75cc/hr Heme: Chronic anemia, closely monitor H&H, transfuse for hemoglobin less than 7 grams/deciliter Endocrine: Blood sugars under control Sliding scale insulin as needed Hypothyroidism: Continue levothyroxine Infectious disease: Pancultures negative so far, not on any antibiotics Musculoskeletal: Decubitus ulcer prevention protocol Stage II decubitus ulcers on the buttocks, small wound on coccyx Lines: Unable to remove Jamison due to urinary retention Prophylaxis: Heparin, pantoprazole Critical care time spent is about 40 minutes on ventilator management, managing episodes of apnea changing ventilator settings, weaning from ventilator, pressor support trials, close hemodynamic monitoring, close neurological status monitoring Quality Stroke Does the patient have a stroke diagnosis?: No VTE Prior VTE?: No VTE Risk Level:: Medical - moderate - high VTE Device Contraindication: Treatment Not Indicated VTE Drug Contraindication: N/A - Med Ordered
--- NOTE | 2024-03-05 10:11 | MHC.CLN ---
F/U DISCUSSED AT ROUNDS WITH . NEPRO CURRENTLY AT 30 ML PER HOUR WITH FREE WATER FLUSHES 240 ML Q 6 HOURS. TOLERATING TF WELL. RECOMMEND ADVANCE TF FORMULA TO 35 ML PER HOUR TODAY. CONTINUE FREE WATER FLUSHES 240 ML Q 6 HOURS NEPRO AT 35 ML PER HOUR PROVIDES 1512 KCALS, 68 G PROTEIN, 611 ML FREE WATER FROM FORMULA, 960 ML WATER FROM FLUSHES. ADVANCE ABLE TO NEPRO AT MAX GOAL RATE 45ML/HR TO PROVIDE 1944KCALS (23KCALS/KG BASED ON CMW), 87G PROTEIN (1.0G/KG), 785ML FREE WATER FROM FORMULA, 1745 ML (24 ML/KG IBW) TOTAL FREE WATER FROM FORMULA AND FLUSHES. MONITOR TOLERANCE AND LYTES.
[2024-03-05] MEDS: Dextrose 5 % 1,000 ML 75 ML IVCONT (10:16)
--- NOTE | 2024-03-05 11:30 | MHC.CM.PN ---
Addendum entered by Betty Dey 03/05/24 13:13: Call placed to [facility]: labs reviewed: pt accepted to transfer on 03/06 at 1pm. No additional documentation, labs, meds, tests requested by [facility]. [facility] booked for 1pm: pt's dtr Chapis called with above information, contact number/address given to her as well as list of personal clothing pt may need while there. ICU care team updated on acceptance and transfer time. Med Nec in [facility] and copy on pt's chart. CM to follow. Original Note: Pt has made clinical progress on trach mask and BUN/creatinine has dropped in 24 hours. Updates sent to [facility]: awaiting transfer date/time. states pt is medically cleared for [facility] transfer. CM to call [facility] by 1pm if no response by [facility]. Pt will need ALS transport.
--- NOTE | 2024-03-05 14:57 | PC.NURSE ---
Addendum entered by Bessy Monroe RN 03/05/24 17:31: 17:30 Soap suds enema administered per MD, Miralax via PEG tube administered per MD due to last bowel movement 03/01. Original Note: Assumed care of patient 0700 Pt provided full bed bath with respiratory therapy present to stabilize tracheostomy Pt provided repositioning Q2H, respiratory therapy present for turns 08:00 Pt on trach collar 40% 11:00 trach collar 30% 13:45 wound nurse to bedside to assess trach site, PEG site, MDPI to upper lip and DTI to coccyx. Dr. Camacho and MARKO Watt contacted regarding loosening sutures to prevent MDPI/ pressure injury to inferior aspect of trach
--- NOTE | 2024-03-05 16:45 | HO.WOUND ---
Wound Consult: Follow up 84yr old?Male admitted to [facility] on 02/09/24 - See progress notes and H&P for detailed history.? Wound consult follow up for Upper Lip Wound, Left Lower Leg wound and Coccyx wound.? Patient is trached and awake but not interactive at the time of my consultation and remains in ICU level of care. The inside lip shows significant signs of improvement - the wound bed appears smaller and red in pigmentation no purple coloring noted at todays assessment. Upper Inner Lip Etiology: ?Device related Mucosal Pressure Injury Wound Bed: Resolving full thickness wound - red moist viable tissue base Drainage / Odor: no observable drainage noted Edges: ? linear Shirley wound: ?outter lip wound resurfaced - No Induration, Fluctuance or Warmth noted Goals of Treatment: Off Load Pressure - Limited topical treatment given location - Frequent Mouth care to be provided Trach Site Etiology: ?MASD Wound Bed: red pink erythema noted - difficult to assess given tight sutures in place - appears to have yellow slough along incision on right side of Trach Drainage / Odor: no observable drainage noted - moisture trapped under trach plate Shirley wound: erythema and swelling noted Goals of Treatment: Off Load Pressure with Allevyn Non adhesive foam dressing cut to size under trach Storeroom # [id number] - TT to Provider Dr. Camacho - he will consider Trach Suture removal to aid in healing. Sacrococcygeal area Etiology: Remains Deep Tissue Injury in Evolution Measurements: 5cm x 2cm x 0.2cm Wound Bed: continue to have scattered areas of DTI - central wound bed continue with dark purple nonblanchable tissue- Moist wound beds Drainage / Odor: [place] drainage noted - No odor Edges: ? Irregular Shirley wound: ? MASD - red pink moist blanchable tissue - No Induration, Fluctuance or Warmth noted Goals of Treatment: Off Load Pressure - Barrier cream and foam dressing in place. Perianal Etiology: MASD (Moisture Associated Skin Damage) Wound Bed: red moist tissue at perianal edge Drainage / Odor: None noted Edges: ? Irregular Shirley wound: ? MASD - red pink moist blanchable tissue - No Induration, Fluctuance or Warmth noted Goals of Treatment: Off Load Pressure - Barrier cream to protect from moisture friction and allow for moist wound healing Right Leg -resurfaced venous dermatitis - no dressing in place and none needed at this time. Left Leg - resurfaced venous dermatitis - no dressing in place and none needed at this time. Of note the patient remains in ICU Level of care see provider notes for details. Despite pressure injury development the proper preventative measures have been in place, ADY and Specialty mattress in use, Wedges for off loading in use with frequent repositions see charting for detailed. Preventative foams and heel protectors in place to elbows and heels, in addition to barrier creams. Recommendations: 1. Turn and Reposition every 2 hours and as needed for patient comfort.? Use pillows or wedges to support off loading positions. 2. Off Load all bony prominences with use of pillows and heel boots if needed.? Apply Preventative foams where needed. ? 3. Monitor for incontinence and moisture control, use barrier creams when needed for prevention and treatment. 4. Provide adequate and supplemental nutrition.? 5. Continue low air loss mattress. 6. When applicable maintain blood glucose levels per Providers order. 7. Upper Lip - Off Load Pressure - Frequent oral care to be provided and continue to off load ET tube per Respiratory Therapist recommendations. 8. Bilateral Medel - Cleanse with NS moist gauze, Pat dry,. Apply skin prep to periwound, cover with foam dressing. Change every 3 days and PRN. 9. Sacrococcygeal - Off Load Pressure - Cleanse with PH balanced wipes, apply barrier cream and sacral foam dressing. Change every 3 days and PRN. 10. Trach Site - Per protocol trach care - If sutures removed apply split cut Allevyn Non Adhesive foam under trach to aid in moisture management and off loading pressure from trach plate. Change Q shift and PRN. (Storeroom# [id number]) Re-consult wound care Nurse for wound deterioration or wound changes.
[2024-03-05] MEDS: polyethylene glycoL 3350 17 GM POWD.PACK PO (17:33)
[2024-03-05] MEDS: fentaNYL citrate/PF 100 MCG/2 ML VIAL 50 MCG IVPUSH ×2 (19:48→23:01)
[2024-03-05] MEDS: QUEtiapine Fumarate 25 MG TABLET G-TUBE (21:33)
--- NOTE | 2024-03-05 21:45 | PC.NURSE ---
Approx. 1999: Patient brought to scheduled MRI with RT on portable vent. MRI completed without incident.
[2024-03-05] MEDS: bisacodyL 10 MG SUPP.RECT PR (22:57)
[2024-03-06] VITALS (15 sets, daily range): BP systolic 100–135; BP diastolic 42–63; PULSE 63–85; RESP 15–26; TEMP 35.2–37.1; O2SAT 95–100; BMI 34.5
[2024-03-06] MEDS: fentaNYL citrate/PF 100 MCG/2 ML VIAL 50 MCG IVPUSH ×5 (01:13→13:27)
[2024-03-06] MEDS: Dextrose 5 % 1,000 ML 75 ML IVCONT (01:16)
[2024-03-06 04:20] LABS: VBG Base Excess 1.8 mmol/L; VBG HCO3 23 mmol/L (22-26); VBG pCO2 28 mmHg; VBG pH 7.53 (7.32-7.43); VBG pO2 40 mmHg
[2024-03-06 04:39] LABS: Venous Blood Gas Refer to POC result
[2024-03-06 04:44] LABS: MANUAL DIFF FLAG NO
[2024-03-06 04:45] LABS: Basophils Percent Auto 0.5 % (0-2); Eosinophils Absolute Auto 0.5 X10*3/uL (0.0-0.4); Eosinophils Percent Auto 7.1 % (0-4); Hematocrit 29.2 % (42.0-52.0); Imm Gran Abs Auto 0.06 X10*3/uL (0.00-0.03); Imm Gran Pct Auto 0.8 % (0.0-0.4); Lymphocytes Absolute Auto 2.1 X10*3/uL (1.2-4.9); Lymphocytes Percent Auto 28.9 % (20-40); Mean Corpuscular HGB Conc 30.8 g/dl (31.0-36.0); Mean Corpuscular Volume 90.7 fL (80.0-98.0); Monocytes Absolute Auto 0.7 X10*3/uL (0.1-1.2); Neutrophils Absolute Auto 3.9 x10*3/uL (2.0-8.3); Neutrophils Percent Auto 53.7 % (45-73); Platelet Count 179 X10*3/uL (160-400); Red Blood Count 3.22 X10*6/uL (4.60-5.80); Red Cell Distribution Width 15.9 % (11.0-16.0); White Blood Count 7.3 X10*3/uL (4.8-10.8)
[2024-03-06 05:04] LABS: Alanine Aminotransferase 40 U/L (0-40); Albumin Level 2.9 g/dL (3.5-5.0); Alkaline Phosphatase 88 U/L (39-117); Anion Gap 14 (12-20); Aspartate Amino Transferase 29 U/L (5-37); Bilirubin Total 0.5 mg/dL (0.0-1.0); Blood Urea Nitrogen 34 mg/dL (9-16); Calcium 9.2 mg/dL (8.4-10.2); Carbon Dioxide 20 mmol/L (22-29); Chloride 111 mmol/L (96-108); Creatinine Clr Calc Pharmacy 58.4; Estimated Glomerular Filt Rate > 60; Glucose Random 135 mg/dL (60-115); Magnesium 1.9 mg/dL (1.6-2.6); Phosphorus 3.5 mg/dL (2.7-4.5); Potassium 3.1 mmol/L (3.3-5.1); Sodium 142 mmol/L (135-145); Total Protein 6.1 g/dL (6.5-8.0)
[2024-03-06] MEDS: Potassium Chloride Packet 20 MEQ PACKET 40 MEQ PO (05:26)
[2024-03-06] MEDS: Levothyroxine Sodium 88 MCG TABLET PO (05:26)
--- NOTE | 2024-03-06 08:36 | PM.CCPN ---
Subjective Subjective Date of Service: 03/06/24 Interval History: No new events overnight Remained stable on controlled mode of ventilator in the night and trach collar during the day Had 2 large bowel movements overnight Critical Care Time (minutes): 35 Physical Exam Vital Signs: Vital Signs: Last Vital Signs Temp 98.7 F 03/06/24 08:00 Pulse 71 03/06/24 08:00 Resp 25 H 03/06/24 08:00 BP 125/59 L 03/06/24 08:00 Pulse Ox 99 03/06/24 08:00 O2 Del Method Trach Collar 03/06/24 08:00 O2 Flow Rate 30 03/05/24 01:00 FiO2 30 03/06/24 08:00 BMI result Body Mass Index 34.5 General: Not in any acute distress, ill appearing and tired appearing Nutritional Appearance: well nourished and overweight Eyes: appearance normal, both eyes and all related structures; Alignment and Position: alignment normal and position normal Neck: No lymphadenopathy, no thyromegaly, trach site looks okay Resp: bilateral air entry equal, occasional added sounds present more on the left side than the right side Cardio: Regular rate, regular rhythm; Heart sounds: S1 normal heart sound present and S2 normal heart sound present GI: soft, nontender, no guarding, no hepatosplenomegaly : bladder normal to inspection, bladder normal to palpation, no renal angle tenderness Skin: no rashes or lesions noted and elasticity normal Neuro: Confusion present drowsiness present and moves all extremities Objective Data Labs 03/06/24 04:03 03/06/24 04:03 Labs: Laboratory Results - last 24 hr 03/06/24 03/06/24 04:03 04:11 WBC 7.3 RBC 3.22 L Hgb 9.0 L Hct 29.2 L MCV 90.7 MCH 28.0 MCHC 30.8 L RDW 15.9 Plt Count 179 MPV 10.0 Immature Gran % (Auto) 0.8 H Neut % (Auto) 53.7 Lymph % (Auto) 28.9 [place] % (Auto) 9.0 Eos % (Auto) 7.1 H Baso % (Auto) 0.5 Lymph # (Auto) 2.1 [place] # (Auto) 0.7 Eos # (Auto) 0.5 H Baso # (Auto) 0.0 Abs Immat Gran (auto) 0.06 H Absolute Neuts (auto) 3.9 Absolute Nucleated RBC 0.000 Nucleated RBC % (auto) 0.0 VBG pH 7.53 H VBG pCO2 28 VBG pO2 40 VBG HCO3 23 VBG O2 Saturation 66.0 VBG Base Excess 1.8 Sodium 142 Potassium 3.1 L Chloride 111 H Carbon Dioxide 20 L Anion Gap 14 BUN 34 H Creatinine 1.13 Estim Creat Clear Calc 58.4 Estimated GFR > 60 Random Glucose 135 H Calcium 9.2 Phosphorus 3.5 Magnesium 1.9 Total Bilirubin 0.5 AST 29 ALT 40 Alkaline Phosphatase 88 Total Protein 6.1 L Albumin 2.9 L Microbiology Microbiology Results: Microbiology 03/05/24 11:42 Tracheal Aspirate Gram Stain - Final 03/05/24 11:42 Tracheal Aspirate Sputum Culture - Preliminary Culture in progress. 02/12/24 14:34 Blood - Venous Blood Culture - Final No growth after 5 days. 02/12/24 14:34 Blood - Venous Blood Culture - Final No growth after 5 days. 02/09/24 13:28 Blood - Venous Blood Culture - Final No growth after 5 days. 02/09/24 13:28 Blood - Venous Blood Culture - Final Haemophilus influenzae Progress Note: A&P Assessment and plan (1) Encephalopathy: Status: Acute (2) Atrial fibrillation: Status: Acute (3) Aspiration pneumonia: Status: Acute (4) Altered mental status: Status: Acute (5) Acute respiratory failure with hypoxia: Status: Acute (6) Coronary artery disease: Status: Acute Plan Neuro: Acute encephalopathy possibly due to metabolic encephalopathy, mental status slowly improving MRI of the brain very showed nonspecific finding, rule out possible pachy meningitis; he was treated with adequate doses of vanc and Zosyn during this admission. These symptoms started prior to admission, which was on 02/09/2024 and now his symptoms are improving and patient's mentation has been getting better with each passing day. He received vancomycin and Zosyn during this hospitalization. Not needing any sedation or anxiolysis Close neurological status monitoring in the ICU every hour Cardiac: Atrial fibrillation with RVR: On amiodarone 400 mg b.i.d. for 7 more days to complete 10gm loading dose and then switch to 200 mg Apixaban for anticoagulation Respiratory: Acute hypoxemic respiratory failure due to aspiration pneumonia Status post tracheostomy and PEG tube placement on February 27, 2024 trach collar during the day and controlled mode of ventilation during the night Peak pressures and plateau pressures are under the curve Ventilator management bundle with head end elevation, aspiration precaution, chlorhexidine mouthwash, daily awakening trials, daily spontaneous breathing trials GI: Continue Nepro at 30 mL/hour, we will not increase dose due to high-risk for aspiration Renal: Acute kidney injury possibly secondary to ATN Baseline creatinine normal, creatinine today is 1.39 We will closely monitor I's and O's Avoid nephrotoxic medications Hypernatremia: Sodium down to 142 this morning Continue water flushes at 150 ml q6h Heme: Chronic anemia, closely monitor H&H, transfuse for hemoglobin less than 7 grams/deciliter Endocrine: Blood sugars under control Sliding scale insulin as needed Hypothyroidism: Continue levothyroxine 88 mcg daily Infectious disease: Pancultures negative so far, treated with adequate doses of vanc and Zosyn during this hospitalization We will add Musculoskeletal: Decubitus ulcer prevention protocol Stage II decubitus ulcers on the buttocks, small wound on coccyx Lines: Unable to remove Jamison due to urinary retention Prophylaxis: Heparin, pantoprazole Quality Stroke Does the patient have a stroke diagnosis?: No VTE Prior VTE?: No VTE Risk Level:: Medical - moderate - high VTE Device Contraindication: Treatment Not Indicated VTE Drug Contraindication: N/A - Med Ordered
--- NOTE | 2024-03-06 09:32 | MHC.CLN ---
F/U DISCUSSED AT ROUNDS WITH . NEPRO CURRENTLY AT 35 ML PER HOUR WITH FREE WATER FLUSHES 240 ML Q 6 HOURS. TOLERATING TF WELL. NEPRO AT 35 ML PER HOUR PROVIDES 1512 KCALS, 68 G PROTEIN, 611 ML FREE WATER FROM FORMULA, 960 ML WATER FROM FLUSHES. PLAN IS TO DISCONTINUE TF THIS AM IN ANTICIPATION OF DISCHARGE. NEPRO MAX GOAL RATE IS 45ML/HR TO PROVIDE 1944KCALS (23KCALS/KG BASED ON CMW), 87G PROTEIN (1.0G/KG), 785ML FREE WATER FROM FORMULA, 1745 ML (24 ML/KG IBW) TOTAL FREE WATER FROM FORMULA AND FLUSHES. MONITOR TOLERANCE AND LYTES.
[2024-03-06] MEDS: amLODIPine Besylate 10 MG TABLET PO (09:38)
[2024-03-06] MEDS: Amiodarone HCL 200 MG TABLET 400 MG PO (09:39)
[2024-03-06] MEDS: Apixaban 2.5 MG TABLET PO (09:39)
[2024-03-06] MEDS: 0.9 % Sodium Chloride Flush 10 ML SYRINGE IVFLUSH (09:40)
[2024-03-06] MEDS: Chlorhexidine Gluc Oral Rinse 15 ML MOUTHWASH BUCCAL (09:42)
--- NOTE | 2024-03-06 09:59 | PM.PNTS ---
Subjective Subjective Date of Service: 03/06/24 Interval history: Asked to remove current trach stay sutures and place new ones to allow for better wound care of the area. Physical Exam Vital Signs: Vital Signs: Last Vital Signs Temp 98.7 F 03/06/24 08:00 Pulse 67 03/06/24 09:00 Resp 15 03/06/24 09:00 BP 125/48 L 03/06/24 09:00 Pulse Ox 100 03/06/24 09:00 O2 Del Method Trach Collar 03/06/24 09:00 O2 Flow Rate 30 03/05/24 01:00 FiO2 30 03/06/24 09:00 BMI result Body Mass Index 34.5 Const: General: no acute distress Resp: Other: on trach collar 4 nylon stay sutures in place on trach; 2 on each side, some maceration of skin below trach site Procedures Date of Service Date of Service: 03/06/24 Progress Note: A&P Assessment and plan (1) Status post tracheostomy: Status: Acute Plan POD #6 s/p trach replacement. Given difficult procedure and now difficulty with wound care due to tightness of stay sutures, asked to remove and replace sutures. Patient premedicated with fentanyl. With assistance, stay sutures removed from left side and area prepped with chloraprep. Single 4-0 nylon suture placed on intact skin. This was then repeated on the contralateral side without complication. Area cleansed with saline and dried. Foam allevyn dressing was then able to placed under the trach with ease. Patient tolerated well, trach intact. Time Spent With Patient Time: Total time managing care of this patient today ____ minutes. Quality Stroke Does the patient have a stroke diagnosis?: No VTE Prior VTE?: No VTE Risk Level:: Medical - moderate - high VTE Device Contraindication: Treatment Not Indicated VTE Drug Contraindication: N/A - Med Ordered
--- NOTE | 2024-03-06 10:25 | HO.WOUND ---
Wound Consult: Follow up 84yr old?Male admitted to [facility] on 02/09/24 - See progress notes and H&P for detailed history.? Wound consult follow up today for Trach site, Upper Lip Wound, Left Lower Leg wound and Coccyx wound last assessed yesterday.? Patient is trached and awake and remains in ICU level of care. Trach Site - remains with ?MASD (Moisture Associated Skin Damage) - pink erythema noted - Sutures were removed and replaced at the bedside today by MARKO Beck - see her note for details. Care was taken to ensure foam dressing can fit under trach for moisture management and off loading plate - It was difficult to assess at the time given active suturing was taking place. Goals of Treatment: Off Load Pressure with Allevyn Non adhesive foam dressing cut to size under trach Storeroom # [id number] - Applied today. No new topical interventions needed at this time. Details from 03/05/24 assessment: The inside lip shows significant signs of improvement - the wound bed appears smaller and red in pigmentation no purple coloring noted at todays assessment. Upper Inner Lip Etiology: ?Device related Mucosal Pressure Injury Wound Bed: Resolving full thickness wound - red moist viable tissue base Drainage / Odor: no observable drainage noted Edges: ? linear Shirley wound: ?outter lip wound resurfaced - No Induration, Fluctuance or Warmth noted Goals of Treatment: Off Load Pressure - Limited topical treatment given location - Frequent Mouth care to be provided Sacrococcygeal area Etiology: Remains Deep Tissue Injury in Evolution Measurements: 5cm x 2cm x 0.2cm Wound Bed: continue to have scattered areas of DTI - central wound bed continue with dark purple nonblanchable tissue- Moist wound beds Drainage / Odor: Serosang drainage noted - No odor Edges: ? Irregular Shirley wound: ? MASD - red pink moist blanchable tissue - No Induration, Fluctuance or Warmth noted Goals of Treatment: Off Load Pressure - Barrier cream and foam dressing in place. Perianal Etiology: MASD (Moisture Associated Skin Damage) Wound Bed: red moist tissue at perianal edge Drainage / Odor: None noted Edges: ? Irregular Shirley wound: ? MASD - red pink moist blanchable tissue - No Induration, Fluctuance or Warmth noted Goals of Treatment: Off Load Pressure - Barrier cream to protect from moisture friction and allow for moist wound healing Right Leg -resurfaced venous dermatitis - no dressing in place and none needed at this time. Left Leg - resurfaced venous dermatitis - no dressing in place and none needed at this time. Of note the patient remains in ICU Level of care see provider notes for details. Despite pressure injury development the proper preventative measures have been in place, ADY and Specialty mattress in use, Wedges for off loading in use with frequent repositions see charting for detailed. Preventative foams and heel protectors in place to elbows and heels, in addition to barrier creams. Recommendations: 1. Turn and Reposition every 2 hours and as needed for patient comfort.? Use pillows or wedges to support off loading positions. 2. Off Load all bony prominences with use of pillows and heel boots if needed.? Apply Preventative foams where needed. ? 3. Monitor for incontinence and moisture control, use barrier creams when needed for prevention and treatment. 4. Provide adequate and supplemental nutrition.? 5. Continue low air loss mattress. 6. When applicable maintain blood glucose levels per Providers order. 7. Upper Lip - Off Load Pressure - Frequent oral care to be provided and continue to off load ET tube per Respiratory Therapist recommendations. 8. Bilateral Medel - Cleanse with NS moist gauze, Pat dry,. Apply skin prep to periwound, cover with foam dressing. Change every 3 days and PRN. 9. Sacrococcygeal - Off Load Pressure - Cleanse with PH balanced wipes, apply barrier cream and sacral foam dressing. Change every 3 days and PRN. 10. Trach Site - Per protocol trach care - If sutures removed apply split cut Allevyn Non Adhesive foam under trach to aid in moisture management and off loading pressure from trach plate. Change Q shift and PRN. (Storeroom# [id number]) Re-consult wound care Nurse for wound deterioration or wound changes.
--- NOTE | 2024-03-06 10:46 | MHC.CM.PN ---
DP: PT WILL TRANSFER TO [facility] TODAY AT 1 PM VIA ALS TRANSPORT . RN UPDATED. RESPIRATORY AWARE THAT CENTER IS REQUESTING TRANSPORT ON VENT. REQUESTED UPDATES SENT TO [facility]. DAUGHTER MICHELLE UPDATED AND FINAL IMM DELIVERED.
--- NOTE | 2024-03-06 12:20 | P.DS_ITS ---
DS: Providers Provider Date of Service: 03/06/24 Date of admission: 02/09/24 16:47 Primary care physician: Uday Sheehan MD Consults: 02/17/24 12:52 Consult to Wound Care Routine Reason for consultation: MDPI upper lip, DTI left aguilar, stage 1 coccyx 02/23/24 13:17 Consult to General Surgery Routine Consulting Provider: [facility] General Surgeons Reason for consultation: Please evaluate for tracheostomy and gastrostomy placement Has provider been notified: No DS: Transfer Hospital Acceptance Reason for Transfer: [facility] Name of Facility: [facility] DS: Diagnosis Discharge Diagnosis (1) Encephalopathy: Status: Acute (2) Atrial fibrillation: Status: Acute (3) Aspiration pneumonia: Status: Acute (4) Altered mental status: Status: Acute (5) Acute respiratory failure with hypoxia: Status: Acute (6) Coronary artery disease: Status: Acute DS: Summary Hospital Course Hospital Course: 84-year-old male with past medical history of paroxysmal atrial fibrillation/flutter (on eliquis),? coronary artery disease,? NSTEMI, congestive heart failure? with LVEF 40-45%, hypertension,? hyperlipidemia, chronic renal disease stage III and sleep apnea? who presented to emergency department? with altered mental status on 02/09/2024. He also had aspiration pneumonia so was intubated and placed on ventilator support. He was treated with vancomycin and Zosyn, patient failed extubation trials multiple times so was finally trached and PEG tube placement on 02/27/2024. Patient's mental status has been slowly improving in the past few days and currently is following some commands, currently patient is able to tolerate trach collar during the day and ventilator support during the night. Time Attestation Total time managing care of this patient today: 38 mintues. Discharge Coordination Time (in mins): 38mins Quality: Safe Use of Opioids Does Pt have an Active Cancer Diagnosis on the Problem List?: No Quality: Stroke Does the patient have a stroke diagnosis?: No Physical Exam Vital Signs: Vital Signs: Last Vital Signs Temp 98.7 F 03/06/24 08:00 Pulse 66 03/06/24 10:58 Resp 26 H 03/06/24 10:58 BP 121/55 L 03/06/24 10:58 Pulse Ox 96 03/06/24 10:58 O2 Del Method Trach Collar 03/06/24 10:58 O2 Flow Rate 30 03/05/24 01:00 FiO2 30 03/06/24 10:58 BMI result Body Mass Index 34.5 General: Not in any acute distress, ill appearing and tired appearing Nutritional Appearance: well nourished and overweight Eyes: appearance normal, both eyes and all related structures; Alignment and Position: alignment normal and position normal Neck: No lymphadenopathy, no thyromegaly, trach site looks okay Resp: bilateral air entry equal, occasional added sounds present more on the left side than the right side Cardio: Regular rate, regular rhythm; Heart sounds: S1 normal heart sound present and S2 normal heart sound present GI: soft, nontender, no guarding, no hepatosplenomegaly : bladder normal to inspection, bladder normal to palpation, no renal angle tenderness Skin: no rashes or lesions noted and elasticity normal Neuro: Confusion present drowsiness present and moves all extremities DS: Data Data Completed and Pending Completed studies during hospitalization [Text1]: Procedures Assistance with Respiratory Ventilation, Less than 24 Consecutive Hours, Continuous Positive Airway Pressure (07/07/22) Dilation of Left Ureter with Intraluminal Device, Via Natural or Artificial Opening Endoscopic (07/07/22) Fluoroscopy of Left Kidney, Ureter and Bladder using Low Osmolar Contrast (07/07/22) Holiness of Cardiac Rhythm, Single (07/07/22) Labs on day of discharge: Laboratory Results - last 24 hr 03/06/24 03/06/24 04:03 04:11 WBC 7.3 RBC 3.22 L Hgb 9.0 L Hct 29.2 L MCV 90.7 MCH 28.0 MCHC 30.8 L RDW 15.9 Plt Count 179 MPV 10.0 Immature Gran % (Auto) 0.8 H Neut % (Auto) 53.7 Lymph % (Auto) 28.9 [place] % (Auto) 9.0 Eos % (Auto) 7.1 H Baso % (Auto) 0.5 Lymph # (Auto) 2.1 [place] # (Auto) 0.7 Eos # (Auto) 0.5 H Baso # (Auto) 0.0 Abs Immat Gran (auto) 0.06 H Absolute Neuts (auto) 3.9 Absolute Nucleated RBC 0.000 Nucleated RBC % (auto) 0.0 VBG pH 7.53 H VBG pCO2 28 VBG pO2 40 VBG HCO3 23 VBG O2 Saturation 66.0 VBG Base Excess 1.8 Sodium 142 Potassium 3.1 L Chloride 111 H Carbon Dioxide 20 L Anion Gap 14 BUN 34 H Creatinine 1.13 Estim Creat Clear Calc 58.4 Estimated GFR > 60 Random Glucose 135 H Calcium 9.2 Phosphorus 3.5 Magnesium 1.9 Total Bilirubin 0.5 AST 29 ALT 40 Alkaline Phosphatase 88 Total Protein 6.1 L Albumin 2.9 L Preliminary micro results at discharge 03/05/24 11:42 Sputum Culture - Preliminary Tracheal Aspirate Culture in progress. Discharge Plan Discharge Patient Disposition: Xfer LT Discharge Diagnosis: Chronic respiratory failure, Encephalopathy, aspiration pneumonia Referrals: [facility] [Outside] - 1 Week (TRANSFER FOR [facility]) Uday Shehean MD [Primary Care Provider] - 1 Week Discharge Medications: New acetaminophen 325 mg Tablet 975 mg PO Q6H PRN (Reason: Fever >100.4) Qty: 15 0RF polyethylene glycol 3350 17 gram Powder In Packet 17 g PO DAILY Qty: 30 0RF amiodarone 200 mg Tablet 400 mg PO BID 7 Days Qty: 28 0RF tetrahydrozoline [Eye Drops (tetrahydrozoline)] 0.05 % Drops 1 drp ophthalmic (eye) QID PRN (Reason: Dry Eyes) Qty: 30 0RF levothyroxine 88 mcg Tablet 88 mcg PO DAILY@0600 Qty: 90 0RF chlorhexidine gluconate 0.12 % Mouthwash 15 ml buccal TID Qty: 15 0RF ondansetron HCl (PF) 4 mg/2 mL Solution 4 mg IVPUSH Q6H PRN (Reason: Nausea And Vomiting) Qty: 30 0RF Continued atorvastatin 80 mg tablet 80 mg PO DAILY oxybutynin chloride 10 mg tablet extended release 24hr 10 mg PO DAILY Eliquis 2.5 mg tablet 2.5 mg PO BID Held amiodarone 200 mg tablet 100 mg PO DAILY Hold Instructions: Resume on 03/14/24. Discontinued pantoprazole 40 mg tablet,delayed release (DR/EC) 40 mg PO DAILY levothyroxine 88 mcg tablet 88 mcg PO DAILY amlodipine 2.5 mg tablet 2.5 mg PO DAILY Discharge Orders: Discharge Order (Routine); Ordered 03/06/24 Ordered By: Beto Alvarado Diet: Low fat, low cholesterol Activity on Discharge: As tolerated Stand Alone Forms: Patient Portal Discharge page Print Language: Latvian Care Plan Goals: Currently on daytime trach collar and nighttime control mode ventilation. The goal is to wean the patient from nighttime ventilator and eventually wean the patient off tracheostomy Health Concerns: Needs aggressive trach care Plan of Treatment: Continue oral amiodarone 400 mg b.i.d. for 7 more days and then switch to 200 mg daily If the sodium goes above 145 please start the patient on D5 water at 75 cc/hour Assessment: Neuro: Acute encephalopathy possibly due to metabolic encephalopathy, mental status slowly improving Not needing any sedation or anxiolysis for past several days Close neurological status monitoring in the ICU every hour Cardiac: Atrial fibrillation with RVR: On amiodarone 400 mg b.i.d. for 7 03/13/2024 and then switch to 200 mg daily dose Apixaban for anticoagulation Respiratory: Chronic hypoxemic respiratory failure due to aspiration pneumonia, Status post tracheostomy and PEG tube placement on February 27, 2024 trach collar during the day and controlled mode of ventilation during the night Ventilator management bundle with head end elevation, aspiration precaution, chlorhexidine mouthwash, daily awakening trials, daily spontaneous breathing trials trach care GI: tube feeds with Nepro at 35 mL/hour, we will not increase dose due to high-risk for aspiration Renal: Acute kidney injury possibly secondary to ATN is resolved closely monitor I's and O's Avoid nephrotoxic medications Hypernatremia: Sodium down to 142 this morning Continue water flushes at 150 ml q6h if the sodium increases above 145 start the pateint on D5W at 75cc/hr Heme: Chronic anemia, closely monitor H&H, transfuse for hemoglobin less than 7 grams/deciliter Endocrine: Blood sugars under control Sliding scale insulin as needed Hypothyroidism: Continue levothyroxine 88 mcg daily Infectious disease: Pancultures negative so far, treated with adequate doses of vanc and Zosyn during this hospitalization Musculoskeletal: Decubitus ulcer prevention protocol Stage II decubitus ulcers on the buttocks, small wound on coccyx Lines: Unable to remove Jamison due to urinary retention Prophylaxis: Heparin, pantoprazole
--- NOTE | 2024-03-06 14:08 | PC.NURSE ---
pt discharged, transfered to [facility] with Jamison in Place PER MD Verbal Order for Retention.
== END 2024-03-06 14:05 | DRG 3 ==
LOC: HO.ED 16:43 → HO.EDOVER 16:50 → HO.ICU 16:59
PROVIDERS: Internal Medicine Critical Care Medicine; Nurse Practitioner Family; Physician Assistant Medical; Registered Nurse Community Health; Surgery; Admitting Provider Internal Medicine Pulmonary Disease; Emergency Provider Student in an Organized Health Care Education/Training Program; PCP Internal Medicine; Visit Provider Internal Medicine Pulmonary Disease
PROC: 0B110F4 Bypass Trachea to Cutaneous with Tracheostomy Device, Open Approach (ICD-10-PCS; principal; 2024-02-27 07:30)
PROC: 0DH63UZ Insertion of Feeding Device into Stomach, Percutaneous Approach (ICD-10-PCS; CPT 43246; 2024-02-27 07:30)
PROC: 0WQ6XZ2 Repair Neck, Stoma, External Approach (ICD-10-PCS; principal; 2024-02-29 12:50)
DX: A41.9 Sepsis, unspecified organism (principal); G93.41 Metabolic encephalopathy; J69.0 Pneumonitis due to inhalation of food and vomit; J96.01 Acute respiratory failure with hypoxia; N17.0 Acute kidney failure with tubular necrosis; E87.0 Hyperosmolality and hypernatremia; I42.9 Cardiomyopathy, unspecified; I13.0 Hypertensive heart and chronic kidney disease with heart failure and stage 1 through stage 4 chronic kidney disease, or unspecified chronic kidney disease; I50.22 Chronic systolic (congestive) heart failure; F05 Delirium due to known physiological condition; Z99.11 Dependence on respirator [ventilator] status; J95.09 Other tracheostomy complication; R33.8 Other retention of urine; N40.1 Benign prostatic hyperplasia with lower urinary tract symptoms; L89.156 Pressure-induced deep tissue damage of sacral region; I48.0 Paroxysmal atrial fibrillation; L89.322 Pressure ulcer of left buttock, stage 2; L89.312 Pressure ulcer of right buttock, stage 2; N18.30 Chronic kidney disease, stage 3 unspecified; D63.1 Anemia in chronic kidney disease; L89.812 Pressure ulcer of head, stage 2; I25.10 Atherosclerotic heart disease of native coronary artery without angina pectoris; E03.9 Hypothyroidism, unspecified; Z20.822 Contact with and (suspected) exposure to COVID-19; Z79.890 Hormone replacement therapy; Z79.01 Long term (current) use of anticoagulants; Z79.899 Other long term (current) drug therapy
CPT/HCPCS: 0241U; 36415; 36573; 70450; 70551; 71045; 71250; 80048; 80053; 81001; 81003; 82040; 82803; 82947; 83605; 83735; 84100; 84443; 84484; 85007; 85025; 85027; 85610; 85730; 87040; 87070; 87077; 87185; 87205; 87640; 87641; 93005; 93306; 94002; 94003; 94799; 99285; C1751; C1758; J0171; J0282; J0283; J0360; J0651; J0690; J0696; J1630; J1644; J1920; J1939; J1940; J2250; J2404; J2405; J2543; J2704; J2795; J3010; J3370; J3475; J3480; J7120; P9047

== ENCOUNTER → 2024-02-09 13:19 | Outpatient (BNV) | payer MEDICARE, SELFPAY | PROVIDERS: Admitting Provider Internal Medicine Pulmonary Disease; Emergency Provider Student in an Organized Health Care Education/Training Program; PCP Internal Medicine; Visit Provider Internal Medicine Cardiovascular Disease | DX: R94.31 Abnormal electrocardiogram [ECG] [EKG] (principal) | CPT/HCPCS: 93010 ==

== ENCOUNTER 2024-02-09 16:47 | Outpatient (BNV) | payer MEDICARE, SELFPAY | END 2024-02-21 07:00 | PROVIDERS: Admitting Provider Internal Medicine Pulmonary Disease; Emergency Provider Student in an Organized Health Care Education/Training Program; PCP Internal Medicine; Visit Provider Internal Medicine | DX: R94.31 Abnormal electrocardiogram [ECG] [EKG] (principal) | CPT/HCPCS: 93010 ==

== ENCOUNTER 2024-02-09 16:47 | Outpatient (BNV) | payer MEDICARE, SELFPAY | END 2024-02-19 07:00 | PROVIDERS: Admitting Provider Internal Medicine Pulmonary Disease; Emergency Provider Student in an Organized Health Care Education/Training Program; PCP Internal Medicine; Visit Provider Internal Medicine | DX: R94.31 Abnormal electrocardiogram [ECG] [EKG] (principal) | CPT/HCPCS: 93010 ==

== ENCOUNTER 2024-02-09 16:47 | Outpatient (BNV) | payer MEDICARE, SELFPAY | END 2024-02-12 08:59 | PROVIDERS: Admitting Provider Internal Medicine Pulmonary Disease; Emergency Provider Student in an Organized Health Care Education/Training Program; PCP Internal Medicine; Visit Provider Internal Medicine Cardiovascular Disease | DX: I35.0 Nonrheumatic aortic (valve) stenosis (principal); I25.5 Ischemic cardiomyopathy; I34.0 Nonrheumatic mitral (valve) insufficiency; R94.31 Abnormal electrocardiogram [ECG] [EKG] | CPT/HCPCS: 93010; 93306 ==

== ENCOUNTER 2024-02-09 16:47 | Outpatient (BNV) | payer MEDICARE, SELFPAY | END 2024-02-14 07:48 | PROVIDERS: Admitting Provider Internal Medicine Pulmonary Disease; Emergency Provider Student in an Organized Health Care Education/Training Program; PCP Internal Medicine; Visit Provider Internal Medicine Cardiovascular Disease | DX: R94.31 Abnormal electrocardiogram [ECG] [EKG] (principal) | CPT/HCPCS: 93010 ==

== ENCOUNTER 2024-02-09 16:47 | Outpatient (BNV) | payer MEDICARE, SELFPAY | END 2024-02-15 07:00 | PROVIDERS: Admitting Provider Internal Medicine Pulmonary Disease; Emergency Provider Student in an Organized Health Care Education/Training Program; PCP Internal Medicine; Visit Provider Internal Medicine Cardiovascular Disease | DX: R94.31 Abnormal electrocardiogram [ECG] [EKG] (principal) | CPT/HCPCS: 93010 ==

== ENCOUNTER 2024-02-09 16:47 | Outpatient (BNV) | payer MEDICARE, SELFPAY | END 2024-02-20 07:00 | PROVIDERS: Admitting Provider Internal Medicine Pulmonary Disease; Emergency Provider Student in an Organized Health Care Education/Training Program; PCP Internal Medicine; Visit Provider Internal Medicine | DX: R94.31 Abnormal electrocardiogram [ECG] [EKG] (principal) | CPT/HCPCS: 93010 ==

== ENCOUNTER 2024-02-09 16:47 | Outpatient (BNV) | payer MEDICARE, SELFPAY | END 2024-02-16 07:00 | PROVIDERS: Admitting Provider Internal Medicine Pulmonary Disease; Emergency Provider Student in an Organized Health Care Education/Training Program; PCP Internal Medicine; Visit Provider Internal Medicine Cardiovascular Disease | DX: R94.31 Abnormal electrocardiogram [ECG] [EKG] (principal) | CPT/HCPCS: 93010 ==

== ENCOUNTER 2024-02-09 16:47 | Outpatient (BNV) | payer MEDICARE, SELFPAY | END 2024-02-15 14:00 | PROVIDERS: Admitting Provider Internal Medicine Pulmonary Disease; Emergency Provider Student in an Organized Health Care Education/Training Program; PCP Internal Medicine; Visit Provider Radiology Vascular & Interventional Radiology | DX: T82.524A Displacement of infusion catheter, initial encounter (principal) | CPT/HCPCS: 36584 ==

== ENCOUNTER → 2024-02-09 16:47 | Outpatient (BNV) | payer MEDICARE, SELFPAY | PROVIDERS: Admitting Provider Internal Medicine Pulmonary Disease; Emergency Provider Student in an Organized Health Care Education/Training Program; PCP Internal Medicine; Visit Provider Registered Nurse Community Health | DX: Z93.1 Gastrostomy status (principal); I48.91 Unspecified atrial fibrillation; Z93.0 Tracheostomy status; G93.40 Encephalopathy, unspecified; I25.10 Atherosclerotic heart disease of native coronary artery without angina pectoris | CPT/HCPCS: 31500; 31622; 99239; 99291 ==

== ENCOUNTER → 2024-02-09 16:47 | Outpatient (BNV) | payer MEDICARE, SELFPAY | PROVIDERS: Admitting Provider Internal Medicine Pulmonary Disease; Emergency Provider Student in an Organized Health Care Education/Training Program; PCP Internal Medicine; Visit Provider Internal Medicine Pulmonary Disease | DX: J96.01 Acute respiratory failure with hypoxia (principal); Z99.11 Dependence on respirator [ventilator] status; G93.40 Encephalopathy, unspecified; I48.91 Unspecified atrial fibrillation; I25.10 Atherosclerotic heart disease of native coronary artery without angina pectoris; I42.9 Cardiomyopathy, unspecified | CPT/HCPCS: 99291; 99292 ==

== ENCOUNTER → 2024-02-09 16:47 | Outpatient (BNV) | payer MEDICARE, SELFPAY | PROVIDERS: Admitting Provider Internal Medicine Pulmonary Disease; Emergency Provider Student in an Organized Health Care Education/Training Program; PCP Internal Medicine; Visit Provider Surgery | DX: Z93.0 Tracheostomy status (principal) | CPT/HCPCS: 31600; 31899; 43246; 99024; 99223; 99232; 99499 ==

== ENCOUNTER 2024-06-10 09:28 | Emergency (ER) | payer MEDICARE, SELFPAY ==
[2024-06-10] VITALS (7 sets, daily range): BP systolic 109–132; BP diastolic 41–54; PULSE 59–77; RESP 16–18; TEMP 36.9–37.4; O2SAT 88–99; BMI 32.5
--- NOTE | 2024-06-10 09:59 | ED_ITS ---
HPI - General Adult General Chief complaint: Recheck/Abnormal Lab/Rx Stated complaint: ABN LABS,LOW H&H FROM SNF PER EMS Time Seen by Provider: 06/10/24 09:53 Source: patient Mode of arrival: EMS Limitations: no limitations History of Present Illness HPI narrative: this is 84 years old male long-term resident sent for evaluation for possible anemia according to the long-term hemoglobin today was 6.3 with a crit of 21, patient denies any chest pain shortness of breath. He has no symptoms at this time. He has history of pneumonia requiring intubation and tracheostomy he has a history of AFib chronic kidney disease. to be noted that his baseline hemoglobin is around 7.2 /7.3 Onset (ago): day(s) (1) Radiation: non-radiation Severity: mild Relieving factors: none Exacerbating factors: none Associated symptoms: denies other symptoms Related Data Home Medications ?Medication ?Instructions ?Recorded ?Confirmed apixaban 2.5 mg tablet (Eliquis) 2.5 mg PO BID 05/11/23 02/09/24 atorvastatin 80 mg tablet 80 mg PO DAILY 05/11/23 02/09/24 oxybutynin chloride 10 mg 10 mg PO DAILY 05/11/23 02/09/24 tablet,extended release 24 hr amiodarone 200 mg tablet 100 mg PO DAILY 08/03/23 02/09/24 Previous Rx's ?Medication ?Instructions ?Recorded acetaminophen 325 mg tablet 975 mg (3 x 325 mg) PO Q6H PRN 03/06/24 Fever >100.4 #15 tabs amiodarone 200 mg tablet 400 mg (2 x 200 mg) PO BID 7 days 03/06/24 #28 tabs chlorhexidine gluconate 0.12 % 15 ml buccal TID #15 mL 03/06/24 mouthwash levothyroxine 88 mcg tablet 88 mcg PO DAILY@0600 #90 tabs 03/06/24 ondansetron HCl (PF) 4 mg/2 mL 4 mg (2 mL) IVPUSH Q6H PRN Nausea 03/06/24 injection solution And Vomiting #30 mL polyethylene glycol 3350 17 gram 17 g PO DAILY #30 ea 03/06/24 oral powder packet tetrahydrozoline 0.05 % eye drops 1 drp ophthalmic (eye) QID PRN Dry 03/06/24 (Eye Drops (tetrahydrozoline)) Eyes #30 mL Allergies Allergy/AdvReac Type Severity Reaction Status Date / Time ibuprofen [IBUPROFEN] Allergy Intermediate HIVES Verified 06/10/24 09:50 hydromorphone [From DILAUDID] AdvReac Intermediate ILEUS Verified 06/10/24 09:50 procaine [From Novocain] AdvReac Intermediate has no Verified 06/10/24 09:50 numbing effect-states monocain works narcotic pain meds AdvReac Intermediate does not Uncoded 06/10/24 09:50 relieve pain per patient Review of Systems 2 Constitutional: Constitutional: Reports no additional constitutional complaints ENT: Reports system reviewed and no additional complaints, except as documented Cardiovascular: Cardiovascular: Reports no additional cardiovascular complaints PMFSH Past Medical History Attestation statement: The following information was validated with the patient. Medical History Delirium Altered mental status Sepsis Atherosclerotic cardiovascular disease PAF (paroxysmal atrial fibrillation) NSTEMI (non-ST elevated myocardial infarction) Chronic renal disease, stage 3, moderately decreased glomerular filtration rate (GFR) between 30-59 mL/min/1.73 square meter Chest pain Heart failure Thyroid disease GERD (gastroesophageal reflux disease) On anticoagulant therapy COVID-19 vaccine series completed Symptomatic cholelithiasis HTN (hypertension) Hyperlipidemia Atrial fibrillation Sleep apnea Elevated PSA Facet arthropathy, cervical BPH loc w urin obs/LUTS Surgical History S/P laparoscopic cholecystectomy Hx of cataract extraction History of total replacement of both hip joints Hx of cystoscopy H/O colonoscopy History of surgery Family History Family History Unknown No problems noted. Social History Social History Household Members: Unknown / Unable to assess Housing: Unknown / Unable to assess Are you a primary child caregiver private home to a significant other at home: No Alcohol intake: never Comment: bilateral wrist restraints for airway/line safety Patient Tobacco Use Status: Tobacco use Unknown Advance Directives: Yes Advance Directives on File: Yes Advance Directives Date on File: 03/07/24 service: No Current occupational status: retired Physical Exam ED Vital Signs: Vital Signs - 24 hr 06/10/24 09:46 06/10/24 12:21 06/10/24 12:30 Temperature 98.6 F 98.5 F 98.5 F Pulse Rate 67 59 59 Respiratory Rate 16 16 16 Blood Pressure 109/45 L 109/41 L 109/41 L Pulse Oximetry 97 99 Oxygen Delivery Method Nasal Cannula Nasal Cannula Oxygen Flow Rate 2 06/10/24 12:48 Temperature 98.6 F Pulse Rate 61 Respiratory Rate 16 Blood Pressure 117/54 L Pulse Oximetry Oxygen Delivery Method Oxygen Flow Rate BMI result Body Mass Index 32.5 patient looks well not toxic appearing Const General: cooperative Nutritional Appearance: well nourished Orientation/consciousness: patient oriented x3 Limitations: no limitations HENMT Head: Yes normal to inspection Ears: hearing grossly normal bilaterally Face and sinus: Yes normal facial exam Neck Neck: Yes normal visual inspection Chest Chest palpation & inspection: normal inspection of the chest Resp Effort & Inspection: normal respiratory effort Cardio Jugular venous distension: no JVD Rate: regular rate Rhythm: regular rhythm GI Inspection: Yes normal to inspection Palpation (GI): Soft to palpation, not firm, nontender and no guarding Percussion: Yes normal to percussion Skin General skin exam: no rashes or lesions noted Trauma: no lacerations or abrasions Neuro General: patient oriented x3 Course Reevaluation(s) Reevaluation #1: Patient is anemic but heme-negative stools, low iron, clinical picture is consistent with anemia of chronic disease due to chronic renal failure and iron- deficiency anemia. I discussed with the patient risks and benefits of blood transfusion given the age I think it is reasonable to give him a blood transfusion, patient consent Time: 12:15 Reevaluation #2: Transfusion completed we repeated H&H anticipate discharge patient is completely asymptomatic Time: 14:05 Medical Decision Making Medical Decision Making MDM Narrative: patient presented to emergency sent by long-term for possible anemia. We will check H and H Differential Diagnosis Differential Diagnoses: The differential diagnosis associated with the presentation includes anemia /iron deficiency anemia Lab Data 06/10/24 11:09 06/10/24 11:09 Labs: Lab Results 06/10/24 06/10/24 Range/Units 11:09 11:35 WBC 5.0 (4.8-10.8) X10*3/uL RBC 2.57 L D (4.60-5.80) X10*6/uL Hgb 6.9 L* D (14.0-18.0) g/dl Hct 21.9 L D (42.0-52.0) % MCV 85.2 (80.0-98.0) fL MCH 26.8 L (27.0-33.0) pg MCHC 31.5 (31.0-36.0) g/dl RDW 17.0 H (11.0-16.0) % Plt Count 166 (160-400) X10*3/uL MPV 10.2 (9.4-12.4) fL Immature Gran % (Auto) 0.8 H (0.0-0.4) % Neut % (Auto) 64.2 (45-73) % Lymph % (Auto) 17.2 L (20-40) % [place] % (Auto) 16.6 H (2-11) % Eos % (Auto) 1.0 (0-4) % Baso % (Auto) 0.2 (0-2) % Lymph # (Auto) 0.9 L (1.2-4.9) X10*3/uL [place] # (Auto) 0.8 (0.1-1.2) X10*3/uL Eos # (Auto) 0.1 (0.0-0.4) X10*3/uL Baso # (Auto) 0.0 (0.0-0.2) X10*3/uL Abs Immat Gran (auto) 0.04 H (0.00-0.03) X10*3/uL Absolute Neuts (auto) 3.2 (2.0-8.3) x10*3/uL Absolute Nucleated RBC 0.000 (0.0-0.012) X10*3/uL Nucleated RBC % (auto) 0.0 (0.0-0.2) /100WBC Sodium 143 (135-145) mmol/L Potassium 4.1 D (3.3-5.1) mmol/L Chloride 111 H (96-108) mmol/L Carbon Dioxide 24 (22-29) mmol/L Anion Gap 12 (12-20) BUN 40 H (9-16) mg/dL Creatinine 2.69 H (0.5-1.4) mg/dL Estim Creat Clear Calc 26.0 Estimated GFR 23 Random Glucose 117 H (60-115) mg/dL Calcium 7.9 L D (8.4-10.2) mg/dL Iron 9 L (45-160) mcg/dL TIBC 119 L (228-428) mcg/dL % Saturation 8 L (15-50) % Unsat Iron Binding 110 ug/dL Total Bilirubin 0.3 (0.0-1.0) mg/dL AST 271 H (5-37) U/L ALT 150 H (0-40) U/L Alkaline Phosphatase 88 (39-117) U/L Total Protein 6.1 L (6.5-8.0) g/dL Albumin 2.3 L (3.5-5.0) g/dL Stool Occult Blood NEGATIVE (NEGATIVE) Blood Type O Positive Antibody Screen NEGATIVE Crossmatch See Detail Discharge Plan Discharge Clinical Impression: Anemia Qualifiers: Anemia type: unspecified type Qualified Code(s): D64.9 - Anemia, unspecified Prescriptions: No Action acetaminophen 325 mg Tablet 975 mg PO Q6H PRN (Reason: Fever >100.4) Qty: 15 0RF polyethylene glycol 3350 17 gram Powder In Packet 17 g PO DAILY Qty: 30 0RF amiodarone 200 mg Tablet 400 mg PO BID 7 Days Qty: 28 0RF tetrahydrozoline [Eye Drops (tetrahydrozoline)] 0.05 % Drops 1 drp ophthalmic (eye) QID PRN (Reason: Dry Eyes) Qty: 30 0RF levothyroxine 88 mcg Tablet 88 mcg PO DAILY@0600 Qty: 90 0RF chlorhexidine gluconate 0.12 % Mouthwash 15 ml buccal TID Qty: 15 0RF ondansetron HCl (PF) 4 mg/2 mL Solution 4 mg IVPUSH Q6H PRN (Reason: Nausea And Vomiting) Qty: 30 0RF atorvastatin 80 mg tablet 80 mg PO DAILY oxybutynin chloride 10 mg tablet extended release 24hr 10 mg PO DAILY Eliquis 2.5 mg tablet 2.5 mg PO BID amiodarone 200 mg tablet 100 mg PO DAILY Print Language: Croatian
[2024-06-10 11:15] LABS: MANUAL DIFF FLAG NO
[2024-06-10 11:16] LABS: Basophils Percent Auto 0.2 % (0-2); Eosinophils Absolute Auto 0.1 X10*3/uL (0.0-0.4); Hematocrit 21.9 % (42.0-52.0); Imm Gran Abs Auto 0.04 X10*3/uL (0.00-0.03); Imm Gran Pct Auto 0.8 % (0.0-0.4); Lymphocytes Absolute Auto 0.9 X10*3/uL (1.2-4.9); Lymphocytes Percent Auto 17.2 % (20-40); Mean Corpuscular HGB Conc 31.5 g/dl (31.0-36.0); Mean Corpuscular Hemoglobin 26.8 pg (27.0-33.0); Mean Corpuscular Volume 85.2 fL (80.0-98.0); Mean Platelet Volume 10.2 fL (9.4-12.4); Monocytes Absolute Auto 0.8 X10*3/uL (0.1-1.2); Monocytes Percent Auto 16.6 % (2-11); Neutrophils Absolute Auto 3.2 x10*3/uL (2.0-8.3); Neutrophils Percent Auto 64.2 % (45-73); Platelet Count 166 X10*3/uL (160-400); Red Blood Count 2.57 X10*6/uL (4.60-5.80)
[2024-06-10 11:18] LABS: Hemoglobin 6.9 g/dl (14.0-18.0)
[2024-06-10 11:32] LABS: Alanine Aminotransferase 150 U/L (0-40); Albumin Level 2.3 g/dL (3.5-5.0); Alkaline Phosphatase 88 U/L (39-117); Anion Gap 12 (12-20); Aspartate Amino Transferase 271 U/L (5-37); Bilirubin Total 0.3 mg/dL (0.0-1.0); Blood Urea Nitrogen 40 mg/dL (9-16); Calcium 7.9 mg/dL (8.4-10.2); Carbon Dioxide 24 mmol/L (22-29); Chloride 111 mmol/L (96-108); Estimated Glomerular Filt Rate 23; Glucose Random 117 mg/dL (60-115); Potassium 4.1 mmol/L (3.3-5.1); Sodium 143 mmol/L (135-145); Total Protein 6.1 g/dL (6.5-8.0)
[2024-06-10 11:46] LABS: OBS Int Ctl Valid YES; OBS1 NEGATIVE (NEGATIVE)
[2024-06-10 11:53] LABS: Iron 9 mcg/dL (45-160); Percent Iron Saturation 8 % (15-50); Total Iron Binding Capacity 119 mcg/dL (228-428); Unsaturated Iron Binding 110 ug/dL
[2024-06-10 14:32] LABS: MANUAL DIFF FLAG NO
[2024-06-10 14:33] LABS: Basophils Percent Auto 0.2 % (0-2); Eosinophils Absolute Auto 0.1 X10*3/uL (0.0-0.4); Eosinophils Percent Auto 0.9 % (0-4); Hematocrit 24.2 % (42.0-52.0); Hemoglobin 7.7 g/dl (14.0-18.0); Imm Gran Abs Auto 0.05 X10*3/uL (0.00-0.03); Imm Gran Pct Auto 0.9 % (0.0-0.4); Lymphocytes Percent Auto 17.5 % (20-40); Mean Corpuscular HGB Conc 31.8 g/dl (31.0-36.0); Mean Corpuscular Hemoglobin 27.2 pg (27.0-33.0); Mean Corpuscular Volume 85.5 fL (80.0-98.0); Mean Platelet Volume 10.1 fL (9.4-12.4); Monocytes Absolute Auto 0.9 X10*3/uL (0.1-1.2); Monocytes Percent Auto 15.9 % (2-11); Neutrophils Absolute Auto 3.7 x10*3/uL (2.0-8.3); Neutrophils Percent Auto 64.6 % (45-73); Platelet Count 149 X10*3/uL (160-400); Red Blood Count 2.83 X10*6/uL (4.60-5.80); Red Cell Distribution Width 16.5 % (11.0-16.0); White Blood Count 5.7 X10*3/uL (4.8-10.8)
--- NOTE | 2024-06-10 20:02 | PC.NURSE ---
Took over care from LIU Musa, Valentino removed and discharge report, printed prior to my shift.
== END 2024-06-10 20:02 ==
PROVIDERS: Emergency Provider Emergency Medicine; PCP Internal Medicine
DX: D64.9 Anemia, unspecified (principal); I13.0 Hypertensive heart and chronic kidney disease with heart failure and stage 1 through stage 4 chronic kidney disease, or unspecified chronic kidney disease; N18.30 Chronic kidney disease, stage 3 unspecified; I50.9 Heart failure, unspecified; E78.5 Hyperlipidemia, unspecified; I48.0 Paroxysmal atrial fibrillation; Z79.899 Other long term (current) drug therapy; Z79.02 Long term (current) use of antithrombotics/antiplatelets; Z79.01 Long term (current) use of anticoagulants
CPT/HCPCS: 36415; 36430; 80053; 82272; 83540; 85025; 86850; 86900; 86901; 86920; 99284; 99285; P9016

== ENCOUNTER 2024-06-26 13:39 | Inpatient (IN) | payer MEDICARE, SELFPAY ==
--- NOTE | ~2024-06-26 | US_ITS ---
EXAMINATION: US RETROPERITONEAL LIMITED (RENAL ONLY) CLINICAL INFORMATION: bilateral hydronephrosis resolution. COMPARISON: CT abdomen/pelvis 06/30/2024 TECHNIQUE: Real-time imaging of the kidneys. FINDINGS: RIGHT KIDNEY: Mild hydronephrosis. 11.9 x 5 x 5.2 cm (SAG x AP x TRV). The kidney is normal in size, contour, and echogenicity. Renal cortical thickness is normal. No calculi or focal parenchymal lesions. LEFT KIDNEY: Moderate hydronephrosis. 10.8 x 4.2 x 6.2 cm (SAG x AP x TRV). The kidney is normal in size, contour, and echogenicity. Renal cortical thickness is normal. No calculi or focal parenchymal lesions. US/US renal BI IMPRESSION: Mild right and moderate left hydronephrosis. Electronically signed by: Carmina Collins DO 06/30/2024 08:58 PM EST Workstation: [id number]
--- NOTE | ~2024-06-26 | CT_ITS ---
EXAMINATION: CT ABDOMEN AND PELVIS WITHOUT CONTRAST CLINICAL INFORMATION: follow up bilateral hydro post desai COMPARISON: CT abdomen/pelvis 06/26/2024 TECHNIQUE: Multidetector volumetric imaging was performed from the superior aspect of the liver through the pubic symphysis. Sagittal and coronal reformatted images were obtained on the technologist's workstation. This CT examination was performed using dose optimization techniques as appropriate, variously including the following: *Automated exposure control *Adjustment of mA and/or kV according to patient size (this includes techniques or standardized protocols for targeted exams where dose is matched to indication/reason for exam; i.e. extremities or head) *Use of iterative reconstruction technique DLP: 1099 mGy-cm FINDINGS: LUNG BASES: Trace left greater than right pleural effusions associated bibasilar atelectasis. LIVER, GALLBLADDER, AND BILIARY TREE: The liver is normal in size, shape, and attenuation. No focal hepatic lesion or biliary ductal dilatation is present. Status post cholecystectomy. PANCREAS: Unremarkable. SPLEEN: Splenomegaly measuring up to 14 cm in craniocaudal dimension. ADRENAL GLANDS: Unremarkable. KIDNEYS AND URETERS: Moderate left-sided and mild right-sided hydronephrosis, improved from prior. Mild residual hydroureter, improved from prior. No nephrolithiasis. Mild bilateral perinephric stranding, as before. The kidneys are normal in size, shape, and attenuation. BLADDER: Evaluation is limited by metallic streak artifact from bilateral hip hardware. The visualized bladder is decompressed relative to prior. There is diffuse circumferential wall thickening, likely related to bladder decompression. There is mild pericystic stranding. Nondependent focus of gas within the bladder is likely iatrogenic related to Desai catheter in place. GASTROINTESTINAL TRACT: Percutaneous gastrostomy tube in place. The small and large bowel are nondilated. Mild scattered colonic diverticulosis evidence of acute diverticulitis. The appendix is unremarkable. ABDOMINAL WALL: No significant hernia is appreciated. LYMPH NODES: Normal. VASCULAR: The aorta is nonaneurysmal with mild scattered atheromatous calcifications. PELVIC VISCERA: Obscured by metallic streak artifact. OSSEOUS STRUCTURES: No acute or suspicious osseous abnormality. Intact bilateral total hip arthroplasties. CT/CT abdomen pelvis wo IV con IMPRESSION: 1. Moderate left-sided and mild right-sided hydronephrosis, improved from prior. Mild residual hydroureter, improved from prior. 2. There is diffuse circumferential bladder wall thickening, likely related to bladder decompression. There is mild pericystic stranding. Correlate with urinalysis to exclude cystitis. 3. Trace left greater than right pleural effusions associated bibasilar atelectasis, new from prior. Fleischner guidelines were followed. Electronically signed by: Carmina Collins DO 06/30/2024 08:56 PM EST
--- NOTE | ~2024-06-26 | CT_ITS ---
EXAMINATION: CT ABDOMEN AND PELVIS WITHOUT CONTRAST CLINICAL INFORMATION: Acute kidney injury. UTI. COMPARISON: CT abdomen 06/27/2023 TECHNIQUE: Multidetector volumetric imaging was performed from the superior aspect of the liver through the pubic symphysis. Sagittal and coronal reformatted images were obtained on the technologist's workstation. This CT examination was performed using dose optimization techniques as appropriate, variously including the following: *Automated exposure control *Adjustment of mA and/or kV according to patient size (this includes techniques or standardized protocols for targeted exams where dose is matched to indication/reason for exam; i.e. extremities or head) *Use of iterative reconstruction technique DLP: 1233 mGy-cm FINDINGS: LUNG BASES: Mild bibasilar atelectasis. No pericardial or pleural effusion. LIVER, GALLBLADDER, AND BILIARY TREE: The liver is normal in size, shape, and attenuation. No focal hepatic lesion or biliary ductal dilatation is present. Gallbladder surgically absent PANCREAS: Mildly atrophic. No acute inflammatory changes. SPLEEN: Unremarkable. ADRENAL GLANDS: Unremarkable. KIDNEYS AND URETERS: Right kidney measures 9.9 cm craniocaudal. Left kidney measures 7.5 cm craniocaudal. There is moderate bilateral hydroureteronephrosis. No radiopaque ureteral calculi are identified. Bilateral perinephric stranding. Mild bilateral periureteral stranding. These findings are new as compared to the prior study. Etiology of the hydronephrosis has not been determined. BLADDER: Streak artifact obscuring portion of the bladder. The urinary bladder is distended measuring 13.3 cm craniocaudal. The visualized superior portion of the bladder wall appears unremarkable. The more inferior aspect of the bladder is obscured. In the partially visualized bladder, no radiopaque calculi are seen. GASTROINTESTINAL TRACT: Stomach is partially distended. There is a lucent tract extending through the anterior abdominal wall into the stomach, suggesting a gastrostomy tube access. Clinically correlate. Moderate volume stool in the large colon. There is colonic diverticulosis with no definite of findings suggest elevated colitis. There is prominent stool in the rectum/distal sigmoid colon. Small bowel loops are nondistended. Appendix appears unremarkable. No free fluid. No free air. ABDOMINAL WALL: Small fat-containing umbilical hernia. LYMPH NODES: No adenopathy is identified in the abdomen or pelvis. VASCULAR: Normal caliber aorta, with scattered atherosclerotic vascular calcification. PELVIC VISCERA: Obscured by metallic streak artifact OSSEOUS STRUCTURES: Bilateral hip arthroplasty with prominent metallic artifact limiting evaluation. Multilevel degenerative changes in the spine. Levoconvex curvature. CT/CT abdomen pelvis wo IV con IMPRESSION: 1. Moderate bilateral hydroureteronephrosis. No radiopaque ureteral calculi are seen. These findings are new as compared to the prior CT of June 27, 2023. The cause of the hydronephrosis has not been determined. Recommend urology/nephrology consultation/evaluation. The left kidney smaller in size as compared to the right side. 2. Colonic diverticulosis without evidence of diverticulitis. 3. Urinary bladder is suboptimally evaluated, with metallic streak artifact limiting evaluation. Fleischner guidelines were followed. Electronically signed by: Castillo Adam MD 06/26/2024 08:33 PM [facility]
[2024-06-26 13:49] VITALS: BP 133/63; BP 97/58; PULSE 90; PULSE 96; RESP 16; TEMP 37; O2SAT 96; O2SAT 98; BMI 36.8
--- OUTSIDE RECORDS SUMMARY | 2024-06-26 14:13 | XMS_ITS | Patient Health Record ---
Author Organization [facility] Address [address] [place] [id number] Care Team Providers Care Faucets Assembler Name Role Phone Uday Sheehan MD Primary Care Provider Louis Trujillo [phone] ALLERGIES Allergen (clinical drug ingredient) Drug/Non Drug Allergy documented on EMR Reaction Allergy Type Onset Date Status hydromorphone Dilaudid Unknown Drug Allergy Act flaco some dyes in Motrin (uncoded) Unknown Allergy Active REASON FOR REFERRAL No Information MEDICATIONS Medication SIG (Take, Route, Frequency, Duration) Notes Start Date End Date Status Tylenol Active oxyCODONE HCl 5 MG 1 capsule as needed Orally for sleep as needed Right hip pain Active Pantoprazole Sodium 40 MG 1 tablet Orally Once a day for 30 day(s) 08/06/2021 Active Pravastatin Sodium 80 MG 1 tablet Orally Once a day Active Amiodarone HCl 200 MG 2 tablet Orally twice a dayfor two weeks then one tablet 200mg 08/05/2021 Active Levothyroxine Sodium 88 MCG as directed Orally Once a day Active Torsemide 20 MG as directed Orally once every third day Active Eliquis 5 MG as directed Orally twice a day Active IMMUNIZATIONS Vaccine Route Administration Date Status Comme nts Flu vaccine no Preserv 3 and > Unknown 05/15/2017 Admin istered Influenza Unknown 04/09/2018 Administered SOCIAL HISTORY Sex Assigned At : Social History Observation Description Sex Assigned At Unknown PROBLEMS Problem Type ICD Code Onset Dates Problem Status W/U Status Risk SNOMED Code Notes Problem Bloating (R14.0) Active confirmed 26605 9008 Problem Chest discomfort (R07.89) Active confirmed 233307593 Problem Gastroesophageal reflux disease without esophagitis (K21.9) Active confirmed 668262401 Problem Other irritable bowel syndrome (K58.8) Active confirmed 31226447 Problem Hypertension, unspecified type (I10) Active confirmed 78104216 Problem Gastroesophageal reflux disease, unspecified whether esophagitis present (K21.9) Active confirmed [id number] PLAN OF TREATMENT Pending Test Test Name Order Date XR GI SERIES 03/14/2018 Pathology 09/13/2021 Future Test Test Name Order Date UPPER GI ENDOSCOPY 08/06/2021 Insurance Providers Payer Name Payer Address Payer Phone Subscriber Number Group Number Insured Name Patient Relationship to Insured Coverage Start Date Coverage End Date MEDICARE OF [place] [address] [place] [address] [phone] [id number] RIZWANA ANDREW Self - patient is the insured MED[employer] ATTN CLAIMS [address] [place] [address] [phone] [id number] RIZWANA ANDREW Self - patient is the insured MEDICAL (GENERAL) HISTORY Medical History History ICD Code Nephrolithiasis Hyperlipidemia Denies PR,DM,CVA,Lung disease,renal dise ase Afib--2 unsuccessful ablatio n porcedures--sees Dr. Villalobos-cardiology at [facility]--s/p cardioversion 07/2021 at [facility] with Dr. Briones---he has had multiple cardioversions prior to that as well Hypothyroidism GERD-never had an EGD--Tone almonte in 2018 describing some mild esophageal motility, mild reflux, and an incidental finding of a cricopharyngeal bar Colonoscopy approximately 20 years ago Surgical History Surgery Date(Month/Year) Left hip replacement 2015 Right hip replacement 2019 Back surgery Cholecystectomy-Dr. Gonzáles 03/03/2021 Cataracts Knee surgeires for meniscus repairs
--- OUTSIDE RECORDS SUMMARY | 2024-06-26 14:13 | XMS_ITS | Continuity of Care Document ---
Author Organization [facility] Address [address], [address] [place] [id number]- Care Team Providers Care Financial Adviser Name Role Phone Uday Sheehan MD Primary Care Physician Encounter [facility] Date(s): 05/24/24 - 06/23/24 [facility] [address], [address] [place] [id number] Encounter Type: Triage Allergies, Adverse Reactions, Alerts Substance Criticality Severity Reaction Reaction Severity Status Dilaudid 1 Active 1bowels freeze Immunizations Given and Recorded Vaccine Date Status Refusal Reason [id number] 12y+ bivalent booster vax 04/07/22 Recorded SARS-CoV-2 mRNA ([id number]) vax 11/09/21 Recorded SARS-CoV-2 (COVID-19) mRNA BNT-162b2 vac 04/05/21 Recorded Medications acetaminophen 500 mg oral capsule 2 capsule = 1,000 mg, By Mouth, 2 times a day, 0 Refills, Maintenance, 01/21/20 11:20:00 AM EDT Start Date: 01/21/20 Status: Ordered Repeat number: 1 amiodarone 200 mg oral tablet 400 mg, 2, tablet, By Mouth, 2 times a day, # 24 tablet, Refills 0, Tot. Refills 0, Maintenance, 07/19/22 12:34:00 PM EST, Route to Pharmacy Electronically, [facility], Partial fill uponpatient request if the prescription is for a schedule II opioid drug., 183, cm, 07/15/22 4:03:00 EST, Height, 120, kg, 07/12/22 18:14:00 EST, Dry Weight Start Date: 07/19/22 Stop Date: 07/25/22 Status: Ordered Quantity: 24.0 Unit: tablet Repeat number: 1 amiodarone 200 mg oral tablet 200 mg, 1, tablet, By Mouth, Daily, To be started on 07/26 after completion of 400 mg twice daily, #30 tablet, Refills 0, Tot. Refills 0, Maintenance, 07/26/22 9:00:00 AM EST, Route to Pharmacy Electronically, [facility], Partial fill upon patient request if the prescription is for a schedule II opioid drug., 183, cm, 07/15/22 4:03:00 EST, Height, 120, kg, 07/12/22 18:14:00 EST, Dry Weight Start Date: 07/26/22 Status: Ordered Quantity: 30.0 Unit: tablet Repeat number: 1 amLODIPine 2.5 mg oral tablet 2.5 mg, 1, tablet, By Mouth, Daily, # 30 tablet, Refills 0, Maintenance, 02/24/21 8:06:00 AM EDT, Partial fill upon patient request if the prescription is for a schedule II opioid drug. Start Date: 02/24/21 Status: Ordered Quantity: 30.0 Unit: tablet Repeat number: 1 aspirin 81 mg oral delayed release tablet 81 mg, By Mouth, Daily, # 30 tablet, Refills 0, Tot. Refills 0, Maintenance, 07/19/22 12:08:00 PM EST, Route to Pharmacy Electronically, [facility], Partial fill upon patient request if the prescription is for a schedule II opioid drug., 183, cm, 07/15/22 4:03:00 EST, Height, 120, kg, 07/12/22 18:14:00 EST, Dry Weight Start Date: 07/19/22 Status: Ordered Quantity: 30.0 Unit: tablet Repeat number: 1 Eliquis 2.5 mg oral tablet 1 tablet = 2.5 mg, By Mouth, 2 times a day, # 60 tablet, 0 Refills, Maintenance, 07/19/22 12:35:00 PM EST, Tablet, [facility], Partial fill upon patient request if the prescription is for a schedule II opioid drug., 183, cm, 07/15/22 4:03:00 EST, Height, 120, kg, 07/12/22 18:14:00 EST,Dry Weight Start Date: 07/19/22 Status: Ordered Quantity: 60.0 Unit: tablet Repeat number: 1 levothyroxine 0.088 mg oral tablet 1 tablet = 88 mcg, By Mouth, Daily, Monday 1.5tablet., # 30 tablet, 0 Refills, Maintenance, 05/08/17 10:52:44 AM EDT, Tablet Start Date: 05/08/17 Status: Ordered Quantity: 30.0 Unit: tablet Repeat number: 1 Lipitor 80 mg oral tablet 1 tablet = 80 mg, By Mouth, Daily, # 30 tablet, 0 Refills, Maintenance, 07/19/22 12:08:00 PM EST, Tablet, [facility], Partial fill upon patient request if the prescription is for a schedule II opioid drug., 183, cm, 07/15/22 4:03:00 EST, Height, 120, kg, 07/12/22 18:14:00 EST, Dry Weight Start Date: 07/19/22 Status: Ordered Quantity: 30.0 Unit: tablet Repeat number: 1 oxybutynin 10 mg/24 hr oral tablet, extended release 1 tablet = 10 mg, By Mouth, Daily, # 30 tablet, 0 Refills, Maintenance, 07/19/22 12:08:00 PM EST, ERTablet, [facility], Partial fill upon patient request if the prescription is for a schedule II opioid drug., 183, cm, 07/15/22 4:03:00 EST, Height, 120, kg, 07/12/22 18:14:00 EST, Dry Weight Start Date: 07/19/22 Status: Ordered Quantity: 30.0 Unit: tablet Repeat number: 1 Protonix 40 mg oral delayed release tablet = 40 mg, By Mouth, 2 times a day, # 84 tablet, 0 Refills, Maintenance, 10/01/20 9:01:00 AM EDT, EC Tablet, 182.8, cm, 10/01/20 9:00:00 EDT, Height, 124.5, kg, 09/30/20 6:51:00 EDT, Dry Weight Start Date: 10/01/20 Stop Date: 11/12/20 Status: Ordered Quantity: 84.0 Unit: tablet Repeat number: 1 tamsulosin 0.4 mg oral capsule 0.4 mg, 1, capsule, By Mouth, Daily, # 30 capsule, Refills 0, Tot. Refills 0, Maintenance, 07/19/22 3:42:00 PM EST, Route to Pharmacy Electronically, [facility], Partial fill upon patient request if the prescription is for a schedule II opioid drug., 183, cm, 07/15/22 4:03:00 EST, Height, 120, kg, 07/12/22 18:14:00 EST, Dry Weight Start Date: 07/19/22 Status: Ordered Quantity: 30.0 Unit: capsule Repeat number: 1 Problem List Condition Confirmation Course Effective Dates Status Health St atus Informant Iliopsoas bursitis of right hip Confirmed Active Obesity Confirmed Active Obstructive sleep apnea (adult or pediatric), on CPAP Confirmed Active OA (osteoarthritis), hips Confirmed Active Severe obesity (BMI 35.0-39.9) with comorbidity Confirmed Active Greater trochanteric bursitis of right hip Confirmed Active Social History Social History Type Response Smoking Status Never smoker entered on: 10/03/13 Sex Sex Representation Male (finding) Patient Care team information Care Team Personnel Name: Ramon Worrell RN Position: [facility] ED RN W/OE and Tasks Member Role: Primary Care Nurse Name: Josefina Leone RN Position: [facility] ED RN W/OE and Tasks Member Role: Primary Care Nurse Name: Mary Hartley RN Position: [facility] RN Member Role: Primary Care Nurse Name: Lucila Felipe RN Position: [facility] RN Member Role: Primary Care Nurse Name: Emily Liz RN Position: [facility] SN RN Member Role: Primary Care Nurse Name: Uday Sheehan MD Position: [facility] Outreach Member Role: PCP Address: [address] [place] [address] [place] [address]- Telecom: Name: Millie Arauz RN Position: [facility] RN Member Role: Primary Care Nurse Name: Lyndsey Sandoval RN Position: [facility] RN Member Role: Primary Care Nurse Name: Radha Burnett RN Position: [facility] RN Member Role: Primary Care Nurse Name: Evelia Og RN Position: [facility] AMB Nurse Member Role: Primary Care Nurse Name: Lyndsay Pool RN Position: [facility] RN Member Role: Primary Care Nurse Name: Сергей Lindsey RN Position: [facility] RN Member Role: Primary Care Nurse Care Team Related Persons Name: MERCY SIMMS Insurance Providers Guarantor name: RAMON SIMMS Health Plan Information #: 1 Payer: MEDICARE PART B OUTPT Member Number: NA Policy Number: NA Group Number: NA Health Plan Information #: 2 Payer: MEDEX Member Number: NA Policy Number: NA Group Number: NA
--- OUTSIDE RECORDS SUMMARY | 2024-06-26 14:13 | XMS_ITS | Continuity of Care Document ---
Author Organization [facility] [address] [place] [address] Phone [phone] Social History Type Date Description Comments Sex Unknown Medical Devices Description No Information Available Encounters Description No Information Available Assessments Description No Information Available Plan of Treatment No Information Available Functional Status Description No Information Available Mental Status Description No Information Available Referrals Description No Information Available
--- NOTE | 2024-06-26 14:46 | ED_ITS ---
HPI - General Adult General Chief complaint: General Medical Stated complaint: L ABD PAIN,URINE ISSUE,FROM SNF PER EMS Time Seen by Provider: 06/26/24 14:31 Source: EMS Mode of arrival: EMS History of Present Illness HPI narrative: This is 84 years old the metal referred to us from the [facility] because urine culture of 06/22 showed klebsiella pneumoniae ESBL more than 100,000 and ECOLI ESBL more than 100,000. Patient has history of chronic respiratory failure, chronic kidney disease stage 3, congestive heart failure, her iron deficiency anemia, paroxysmal AFib hypothyroidism. Onset (ago): day(s) (1) Radiation: non-radiation Severity: mild Pain Consistency: constant Relieving factors: none Treatments prior to arrival: none Related Data Home Medications ?Medication ?Instructions ?Recorded ?Confirmed apixaban 2.5 mg tablet (Eliquis) 2.5 mg PO BID 05/11/23 02/09/24 atorvastatin 80 mg tablet 80 mg PO DAILY 05/11/23 02/09/24 oxybutynin chloride 10 mg 10 mg PO DAILY 05/11/23 02/09/24 tablet,extended release 24 hr amiodarone 200 mg tablet 100 mg PO DAILY 08/03/23 02/09/24 Previous Rx's ?Medication ?Instructions ?Recorded acetaminophen 325 mg tablet 975 mg (3 x 325 mg) PO Q6H PRN 03/06/24 Fever >100.4 #15 tabs amiodarone 200 mg tablet 400 mg (2 x 200 mg) PO BID 7 days 03/06/24 #28 tabs chlorhexidine gluconate 0.12 % 15 ml buccal TID #15 mL 03/06/24 mouthwash levothyroxine 88 mcg tablet 88 mcg PO DAILY@0600 #90 tabs 03/06/24 ondansetron HCl (PF) 4 mg/2 mL 4 mg (2 mL) IVPUSH Q6H PRN Nausea 03/06/24 injection solution And Vomiting #30 mL polyethylene glycol 3350 17 gram 17 g PO DAILY #30 ea 03/06/24 oral powder packet tetrahydrozoline 0.05 % eye drops 1 drp ophthalmic (eye) QID PRN Dry 03/06/24 (Eye Drops (tetrahydrozoline)) Eyes #30 mL Allergies Allergy/AdvReac Type Severity Reaction Status Date / Time ibuprofen [IBUPROFEN] Allergy Intermediate HIVES Verified 06/26/24 14:02 hydromorphone [From DILAUDID] AdvReac Intermediate ILEUS Verified 06/26/24 14:02 procaine [From Novocain] AdvReac Intermediate has no Verified 06/26/24 14:02 numbing effect-states monocain works narcotic pain meds AdvReac Intermediate does not Uncoded 06/26/24 14:02 relieve pain per patient Review of Systems 2 ENT: Reports system reviewed and no additional complaints, except as documented Cardiovascular: Cardiovascular: Reports no additional cardiovascular complaints Gastrointestinal: Gastrointestinal: Reports no additional gastrointestinal complaints Integumentary/Breasts: Skin/Breast: Reports system reviewed and no additional complaints, except as docu PMFSH Past Medical History Attestation statement: The following information was validated with the patient. Medical History Delirium Altered mental status Sepsis Atherosclerotic cardiovascular disease PAF (paroxysmal atrial fibrillation) NSTEMI (non-ST elevated myocardial infarction) Chronic renal disease, stage 3, moderately decreased glomerular filtration rate (GFR) between 30-59 mL/min/1.73 square meter Chest pain Heart failure Thyroid disease GERD (gastroesophageal reflux disease) On anticoagulant therapy COVID-19 vaccine series completed Symptomatic cholelithiasis HTN (hypertension) Hyperlipidemia Atrial fibrillation Sleep apnea Elevated PSA Facet arthropathy, cervical BPH loc w urin obs/LUTS Surgical History S/P laparoscopic cholecystectomy Hx of cataract extraction History of total replacement of both hip joints Hx of cystoscopy H/O colonoscopy History of surgery Family History Family History Unknown No problems noted. Social History Social History Household Members: Unknown / Unable to assess Housing: Unknown / Unable to assess Are you a primary resident caregiver to a significant other at home: No Alcohol intake: never Comment: bilateral wrist restraints for airway/line safety Patient Tobacco Use Status: Tobacco use Unknown Advance Directives: Yes Advance Directives on File: Yes Advance Directives Date on File: 03/07/24 service: No Current occupational status: retired Physical Exam ED Vital Signs: Vital Signs - 24 hr 06/26/24 13:49 Temperature 98.6 F Pulse Rate 90 Respiratory Rate 16 Blood Pressure 97/58 L Pulse Oximetry 96 Oxygen Delivery Method Room Air BMI result Body Mass Index 36.8 On examination he looks chronically ill but in not acute distress Const General: no acute distress HENMT Head: Yes normal to inspection General nose exam: Normal external nose present Face and sinus: Yes normal facial exam Mouth: Normal oral and palatal mucosa present Neck Neck: Yes normal visual inspection and Yes full ROM Chest Chest palpation & inspection: normal inspection of the chest Resp Effort & Inspection: normal respiratory effort Auscultation: clear to auscultation bilaterally Cardio Jugular venous distension: no JVD Rate: regular rate Rhythm: regular rhythm GI Inspection: Yes normal to inspection Palpation (GI): Soft to palpation Auscultation: normal bowel sounds Skin General skin exam: no rashes or lesions noted Lesions: no lesions Rashes: no rashes Trauma: no lacerations or abrasions Neuro Other: No focal Course Reevaluation(s) Reevaluation #1: spoke with hospitalist Dr Foster Time: 16:11 Medical Decision Making Medical Decision Making [facility] Narrative: Patient was sent for possible ESBL urinary tract infection will check labs UA Differential Diagnosis Differential Diagnoses: The differential diagnosis associated with the presentation includes UTI/urosepsis/ Admission/Observation Consideration of admission/observation: Escalation of care including admission/observation considered Consult Healthcare Provider Management of the patient was discussed with: Hospitalist Lab Data [facility] Lab Attestation statement: I reviewed the patient's lab results. 06/26/24 14:39 06/26/24 14:39 Labs: Lab Results 06/26/24 Range/Units 14:39 WBC 11.9 H (4.8-10.8) X10*3/uL RBC 3.13 L (4.60-5.80) X10*6/uL Hgb 8.4 L (14.0-18.0) g/dl Hct 26.8 L (42.0-52.0) % MCV 85.6 (80.0-98.0) fL MCH 26.8 L (27.0-33.0) pg MCHC 31.3 (31.0-36.0) g/dl RDW 17.8 H (11.0-16.0) % Plt Count 180 (160-400) X10*3/uL MPV 10.3 (9.4-12.4) fL Immature Gran % (Auto) 1.5 H (0.0-0.4) % Neut % (Auto) 78.3 H (45-73) % Lymph % (Auto) 10.7 L (20-40) % Angelina % (Auto) 8.5 (2-11) % Eos % (Auto) 0.7 (0-4) % Baso % (Auto) 0.3 (0-2) % Lymph # (Auto) 1.3 (1.2-4.9) X10*3/uL Angelina # (Auto) 1.0 (0.1-1.2) X10*3/uL Eos # (Auto) 0.1 (0.0-0.4) X10*3/uL Baso # (Auto) 0.0 (0.0-0.2) X10*3/uL Abs Immat Gran (auto) 0.18 H (0.00-0.03) X10*3/uL Absolute Neuts (auto) 9.3 H (2.0-8.3) x10*3/uL Absolute Nucleated RBC 0.000 (0.0-0.012) X10*3/uL Nucleated RBC % (auto) 0.0 (0.0-0.2) /100WBC Sodium 144 (135-145) mmol/L Potassium 4.1 (3.3-5.1) mmol/L Chloride 112 H (96-108) mmol/L Carbon Dioxide 23 (22-29) mmol/L Anion Gap 13 (12-20) BUN 66 H (9-16) mg/dL Creatinine 2.96 H (0.5-1.4) mg/dL Estim Creat Clear Calc 22.3 Estimated GFR 20 Random Glucose 108 (60-115) mg/dL Lactic Acid 1.2 (0.5-2.0) mmol/L Calcium 8.6 D (8.4-10.2) mg/dL Magnesium 2.3 (1.6-2.6) mg/dL Total Bilirubin 0.5 (0.0-1.0) mg/dL AST 49 H (5-37) U/L ALT 33 (0-40) U/L Alkaline Phosphatase 113 (39-117) U/L Total Protein 7.6 (6.5-8.0) g/dL Albumin 2.6 L (3.5-5.0) g/dL Independent Historian Clinical information obtained from an independent historian. History obtained from or confirmed by: EMS External Record Review [facility] record Discharge Plan Discharge Clinical Impression: Acute UTI, History of ESBL E. coli infection Patient Disposition: Admitted As Inpatient Print Language: Argentine
[2024-06-26 14:47] LABS: MANUAL DIFF FLAG NO
[2024-06-26 14:49] LABS: Basophils Percent Auto 0.3 % (0-2); Eosinophils Absolute Auto 0.1 X10*3/uL (0.0-0.4); Eosinophils Percent Auto 0.7 % (0-4); Hematocrit 26.8 % (42.0-52.0); Hemoglobin 8.4 g/dl (14.0-18.0); Imm Gran Abs Auto 0.18 X10*3/uL (0.00-0.03); Imm Gran Pct Auto 1.5 % (0.0-0.4); Lymphocytes Absolute Auto 1.3 X10*3/uL (1.2-4.9); Lymphocytes Percent Auto 10.7 % (20-40); Mean Corpuscular HGB Conc 31.3 g/dl (31.0-36.0); Mean Corpuscular Hemoglobin 26.8 pg (27.0-33.0); Mean Corpuscular Volume 85.6 fL (80.0-98.0); Mean Platelet Volume 10.3 fL (9.4-12.4); Monocytes Percent Auto 8.5 % (2-11); Neutrophils Absolute Auto 9.3 x10*3/uL (2.0-8.3); Neutrophils Percent Auto 78.3 % (45-73); Platelet Count 180 X10*3/uL (160-400); Red Blood Count 3.13 X10*6/uL (4.60-5.80); Red Cell Distribution Width 17.8 % (11.0-16.0); White Blood Count 11.9 X10*3/uL (4.8-10.8)
[2024-06-26 15:01] LABS: Lactic Acid 1.2 mmol/L (0.5-2.0)
[2024-06-26 15:04] LABS: Alanine Aminotransferase 33 U/L (0-40); Albumin Level 2.6 g/dL (3.5-5.0); Alkaline Phosphatase 113 U/L (39-117); Anion Gap 13 (12-20); Aspartate Amino Transferase 49 U/L (5-37); Bilirubin Total 0.5 mg/dL (0.0-1.0); Blood Urea Nitrogen 66 mg/dL (9-16); Calcium 8.6 mg/dL (8.4-10.2); Carbon Dioxide 23 mmol/L (22-29); Chloride 112 mmol/L (96-108); Creatinine Clr Calc Pharmacy 22.3; Estimated Glomerular Filt Rate 20; Glucose Random 108 mg/dL (60-115); Magnesium 2.3 mg/dL (1.6-2.6); Potassium 4.1 mmol/L (3.3-5.1); Sodium 144 mmol/L (135-145); Total Protein 7.6 g/dL (6.5-8.0)
[2024-06-26] MEDS: Meropenem 1 GM VIAL IVPUSH (16:10)
--- NOTE | 2024-06-26 16:13 | P.HPHOSP_ITS ---
History of Present Illness Date of Service: 06/26/24 Chief Complaint: esbl on urine culture 84M PMH pafib, hfref, htn, CKD III, GALLITO, prolonged hospitalizations at [facility] 02/2024 for aspiration pneumonia discharged to LTAC with tracheostomy and PEG, now [place] [facility], trache removed, eating by mouth, sent by [facility] for ESBL ecoli and klebsiella in urine culture, sensitive to IV meds only. Patient unclear why UA was checked. Denies dysuria, fever, urinary frequency. Review of Systems 2 Review of Systems: Yes all other systems are reviewed and are negative [facility] Medical History Delirium Altered mental status Sepsis Atherosclerotic cardiovascular disease PAF (paroxysmal atrial fibrillation) NSTEMI (non-ST elevated myocardial infarction) Chronic renal disease, stage 3, moderately decreased glomerular filtration rate (GFR) between 30-59 mL/min/1.73 square meter Chest pain Heart failure Thyroid disease GERD (gastroesophageal reflux disease) On anticoagulant therapy COVID-19 vaccine series completed Symptomatic cholelithiasis HTN (hypertension) Hyperlipidemia Atrial fibrillation Sleep apnea Elevated PSA Facet arthropathy, cervical BPH loc w urin obs/LUTS Family History Unknown No problems noted. Surgical History S/P laparoscopic cholecystectomy Hx of cataract extraction History of total replacement of both hip joints Hx of cystoscopy H/O colonoscopy History of surgery Social History Household Members: Unknown / Unable to assess Housing: Unknown / Unable to assess Are you a primary cardiac care unit nurse to a significant other at home: No Alcohol intake: never Comment: bilateral wrist restraints for airway/line safety Patient Tobacco Use Status: Tobacco use Unknown Advance Directives: Yes Advance Directives on File: Yes Advance Directives Date on File: 03/07/24 service: No Current occupational status: retired Meds Allergies Allergy/AdvReac Type Severity Reaction Status Date / Time ibuprofen [IBUPROFEN] Allergy Intermediate HIVES Verified 06/26/24 14:02 hydromorphone [From DILAUDID] AdvReac Intermediate ILEUS Verified 06/26/24 14:02 procaine [From Novocain] AdvReac Intermediate has no Verified 06/26/24 14:02 numbing effect-states monocain works narcotic pain meds AdvReac Intermediate does not Uncoded 06/26/24 14:02 relieve pain per patient Home Medications ?Medication ?Instructions ?Recorded ?Confirmed ?Last Taken ?Type Lactobacillus acidophilus 1 1,000 mmu cells PO BID 06/26/24 06/26/24 Unknown History billion cell tablet acetaminophen 325 mg tablet 975 mg PO Q6H PRN Pain/Fever 06/26/24 06/26/24 Unknown History albuterol sulfate 2.5 mg/3 mL 2.5 mg inhalation Q4H PRN 06/26/24 06/26/24 Unknown History (0.083 %) solution for nebulization Shortness Of Breath Or Wheezing amiodarone 200 mg tablet 200 mg PO DAILY 06/26/24 06/26/24 Unknown History amlodipine 10 mg tablet 10 mg PO DAILY 06/26/24 06/26/24 Unknown History apixaban 5 mg tablet (Eliquis) 2.5 mg PO BID 06/26/24 06/26/24 Unknown History ascorbic acid (vitamin C) 500 mg 500 mg PO BID 06/26/24 06/26/24 Unknown History tablet bisacodyl 10 mg rectal suppository 10 mg OH DAILY PRN Constipation 06/26/24 06/26/24 Unknown History docusate sodium 100 mg tablet 100 mg PO BID 06/26/24 06/26/24 Unknown History famotidine 20 mg tablet 20 mg PO BEDTIME 06/26/24 06/26/24 Unknown History ferrous sulfate 325 mg (65 mg 325 mg PO BID 06/26/24 06/26/24 Unknown History iron) tablet gabapentin 100 mg capsule 100 mg PO BID 06/26/24 06/26/24 Unknown History levothyroxine 100 mcg tablet 100 mcg PO DAILY@0600 06/26/24 06/26/24 Unknown History lidocaine 5 % topical patch 1 patch topical DAILY 06/26/24 06/26/24 Unknown History (Lidoderm) magnesium hydroxide 400 mg/5 mL 30 ml PO DAILY PRN Constipation 06/26/24 06/26/24 Unknown History oral suspension (Milk of Magnesia) melatonin 5 mg tablet 10 mg PO BEDTIME 06/26/24 06/26/24 Unknown History multivitamin 1 tab PO DAILY 06/26/24 06/26/24 Unknown History nystatin 100,000 unit/gram topical 1 appl topical DAILY 06/26/24 06/26/24 Unknown History powder polyvinyl alcohol 1.4 % eye drops 1 drp ophthalmic (eye) Q6H PRN Dry 06/26/24 06/26/24 Unknown History Eyes quetiapine 25 mg tablet 25 mg PO BEDTIME 06/26/24 06/26/24 Unknown History sennosides 8.6 mg tablet (senna) 17.2 mg PO BEDTIME 06/26/24 06/26/24 Unknown History sodium phosphates oral solution 15 ml PO Q2H PRN Constipation 06/26/24 06/26/24 Unknown History thiamine HCl (vitamin B1) 100 mg 100 mg PO DAILY 06/26/24 06/26/24 Unknown History tablet (Vitamin B-1) Physical Exam 2 Vital Signs and Narrative: Vital Signs: Last Vital Signs Temp 98.6 F 06/26/24 13:49 Pulse 90 06/26/24 13:49 Resp 16 06/26/24 13:49 BP 97/58 L 06/26/24 13:49 Pulse Ox 96 06/26/24 13:49 O2 Del Method Room Air 06/26/24 13:49 BMI result Body Mass Index 36.8 General: AO X 3, no acute distress Resp: CTA bilateral, no accessory muscles used CVS: S1,S2,RRR GI: soft, non tender, non distended, gtub in place Neuro: motor grossly intact, alert Psych: appropriate affect, appropriate insight Results Labs 06/26/24 14:39 06/26/24 14:39 Labs: Laboratory Results - last 24 hr 06/26/24 14:39 MCV 85.6 MCH 26.8 L MCHC 31.3 RDW 17.8 H Plt Count 180 MPV 10.3 Immature Gran % (Auto) 1.5 H Neut % (Auto) 78.3 H Lymph % (Auto) 10.7 L [place] % (Auto) 8.5 Eos % (Auto) 0.7 Baso % (Auto) 0.3 Lymph # (Auto) 1.3 [place] # (Auto) 1.0 Eos # (Auto) 0.1 Baso # (Auto) 0.0 Abs Immat Gran (auto) 0.18 H Absolute Neuts (auto) 9.3 H Absolute Nucleated RBC 0.000 Nucleated RBC % (auto) 0.0 Anion Gap 13 Estim Creat Clear Calc 22.3 Estimated GFR 20 Random Glucose 108 Lactic Acid 1.2 Calcium 8.6 D Magnesium 2.3 Total Bilirubin 0.5 AST 49 H ALT 33 Alkaline Phosphatase 113 Total Protein 7.6 Albumin 2.6 L Assessment and Plan (1) Acute UTI: Status: Acute Plan 84M PMH pafib, hfref, htn, CKD III, GALLITO, prolonged hospitalizations at [facility] 02/2024 for aspiration pneumonia discharged to LTAC with tracheostomy and PEG, now [place] [facility], trache removed, eating by mouth, sent by [facility] for ESBL Acute urinary tract infection due to ESBL E coli and Klebsiella IV ertapenem, ID eval PRABHU on CKD [address] abdomen, ? Obstructive Monitor Paroxysmal atrial fibrillation eliquis, amio hypothyroid synthroid Chronic systolic CHF euvolemic DVT prophylaxis on Eliquis DNR, not DNI Patient with resistant bacteriuria requiring IV carbapenems will need at least 2 midnights inpatient. Quality Stroke Does the patient have a stroke diagnosis?: No VTE Prior VTE?: No VTE Risk Level:: Medical - moderate - high VTE Device Contraindication: Treatment Not Indicated VTE Drug Contraindication: N/A - Med Ordered
--- NOTE | 2024-06-26 16:43 | PHA.MEDREC ---
Addendum entered by Leroy Lamar 06/26/24 16:59: reviewed Original Note: Pharmacy Consult ? Medication Reconciliation Pharmacy has completed the medication reconciliation. Confirmed med rec with list from [facility] Trejo on [place].
[2024-06-26 17:11] VITALS: BP 115/51; PULSE 81; RESP 14; TEMP 36.8; O2SAT 94
[2024-06-26 17:22] LABS: Appearance Urine Turbid; Color Urine Yellow; Glucose Urine UA Negative (Negative); Leukocyte Esterase Urine Large (3+) (Negative); Nitrite Urine Negative (Negative); UMIC TRIGGER UACC YES; Urine Blood Large (3+) (Negative); Urine Ketones Negative (Negative); Urine Protein 100 (2+) mg/dL (Neg-Trace)
[2024-06-26 17:55] LABS: Bacteria Urine 4+ (None Seen); RBC Urine >20 /HPF (0-2); Squamous Epithelial Cell Urine 0-2 /HPF (0-2); UACC Culture Trigger YES; WBC Clumps Urine Present; WBC Urine >50 /HPF (0-5)
[2024-06-26 17:56] LABS: Granular Casts Urine Present; Waxy Casts Urine Present
[2024-06-26 20:28] VITALS: BMI 32.4
--- NOTE | 2024-06-26 21:05 | HO.SKINPHOTO ---
Location: coccyx Category: pressure Stage: II Length: Width: Depth: cm Location: Category: Stage: Length: Width: Depth: cm Location: Category: Stage: Length: Width: Depth: cm Location: Category: Stage: Length: Width: Depth: cm Location: Category: Stage: Length: Width: Depth: cm Location: Category: Stage: Length: Width: Depth: cm
[2024-06-26] MEDS: Docusate Sodium 100 MG CAPSULE PO (21:40)
[2024-06-26] MEDS: Apixaban 2.5 MG TABLET PO (21:40)
[2024-06-26] MEDS: Sennosides 8.6 MG TABLET 17.2 MG PO (21:40)
[2024-06-26] MEDS: QUEtiapine Fumarate 25 MG TABLET PO (21:40)
[2024-06-26] MEDS: Gabapentin 100 MG CAPSULE PO (21:40)
[2024-06-26] MEDS: Famotidine 20 MG TABLET PO (21:40)
[2024-06-26] MEDS: Ferrous Sulfate 324 MG TABLET.DR PO (21:40)
[2024-06-26] MEDS: Ascorbic Acid 500 MG TABLET PO (21:40)
[2024-06-26] MEDS: 0.9 % Sodium Chloride Flush 3 ML SYRINGE IVFLUSH (21:41)
[2024-06-26 23:06] VITALS: PULSE 82; RESP 18; O2SAT 92
[2024-06-26 23:28] VITALS: BP 117/58; PULSE 79; RESP 18; TEMP 36.2; O2SAT 96
[2024-06-27 03:33] VITALS: BP 124/60; PULSE 78; RESP 18; TEMP 36.7; O2SAT 95
[2024-06-27] MEDS: Meropenem 500 MG VIAL IVPUSH ×2 (05:04→17:15)
[2024-06-27] MEDS: Levothyroxine Sodium 100 MCG TABLET PO (06:18)
[2024-06-27 06:47] LABS: Anion Gap 15 (12-20); Blood Urea Nitrogen 61 mg/dL (9-16); Calcium 8.9 mg/dL (8.4-10.2); Carbon Dioxide 19 mmol/L (22-29); Chloride 116 mmol/L (96-108); Creatinine Clr Calc Pharmacy 20.8; Estimated Glomerular Filt Rate 20; Glucose Random 76 mg/dL (60-115); Potassium 4.2 mmol/L (3.3-5.1); Sodium 146 mmol/L (135-145)
[2024-06-27 07:04] LABS: Hematocrit 25.5 % (42.0-52.0); Hemoglobin 7.8 g/dl (14.0-18.0); Mean Corpuscular HGB Conc 30.6 g/dl (31.0-36.0); Mean Corpuscular Hemoglobin 26.1 pg (27.0-33.0); Mean Corpuscular Volume 85.3 fL (80.0-98.0); Mean Platelet Volume 9.6 fL (9.4-12.4); NRBC Pct Auto 0.2 /100WBC (0.0-0.2); Platelet Count 212 X10*3/uL (160-400); Red Blood Count 2.99 X10*6/uL (4.60-5.80); Red Cell Distribution Width 18.1 % (11.0-16.0); White Blood Count 11.3 X10*3/uL (4.8-10.8)
[2024-06-27 07:35] VITALS: BP 120/59; PULSE 84; RESP 16; TEMP 37.1; O2SAT 93
[2024-06-27] MEDS: Docusate Sodium 100 MG CAPSULE PO ×2 (08:36→20:55)
[2024-06-27] MEDS: polyethylene glycoL 3350 17 GM POWD.PACK PO (08:36)
[2024-06-27] MEDS: Ferrous Sulfate 324 MG TABLET.DR PO ×2 (08:37→20:55)
[2024-06-27] MEDS: Thiamine HCL 100 MG TABLET PO (08:38)
[2024-06-27] MEDS: Gabapentin 100 MG CAPSULE PO ×2 (08:38→20:55)
[2024-06-27] MEDS: Amiodarone HCL 200 MG TABLET PO (08:38)
[2024-06-27] MEDS: Multivitamin TABLET 1 TAB PO (08:38)
[2024-06-27] MEDS: amLODIPine Besylate 10 MG TABLET PO (08:38)
[2024-06-27] MEDS: Lidocaine 4 % Patch ADH..PATCH 1 PATCH TRANSDERMA (08:39)
[2024-06-27] MEDS: Apixaban 2.5 MG TABLET PO ×2 (08:39→20:55)
[2024-06-27] MEDS: 0.9 % Sodium Chloride Flush 3 ML SYRINGE IVFLUSH ×3 (08:39→20:56)
[2024-06-27] MEDS: Ascorbic Acid 500 MG TABLET PO ×2 (08:39→20:55)
--- NOTE | 2024-06-27 09:10 | HO.PM.IMPN ---
Subjective Subjective Date of Service: 06/27/24 Interval History: feeling a bit better Physical Exam Vital Signs: Vital Signs: Last Vital Signs Temp 98.8 F 06/27/24 07:35 Pulse 84 06/27/24 07:35 Resp 16 06/27/24 07:35 BP 120/59 L 06/27/24 07:35 Pulse Ox 93 06/27/24 07:35 O2 Del Method Room Air 06/27/24 07:35 BMI result Body Mass Index 32.4 General: AO X 3, no acute distress Resp: CTA bilateral, no accessory muscles used CVS: S1,S2,RRR GI: soft, non tender, non distended Neuro: motor grossly intact, alert Psych: appropriate affect, appropriate insight Objective Data Active Medications Acetaminophen (Acetaminophen 325 Mg Tablet) 650 mg PO Q6H PRN PRN Reason: Pain, Mild (Pain Scale 1-3), fever or headache Albuterol Sulfate (Albuterol Sulfate (0.083%) 2.5 Mg/3 Ml Vial.Neb) 2.5 mg INHALE Q4H PRN PRN Reason: Shortness Of Breath Or Wheezing Amiodarone HCl (Amiodarone Hcl 200 Mg Tablet) 200 mg PO DAILY [facility] Last Admin: 06/27/24 08:38 Dose: 200 mg Documented By: LEONARDO Amlodipine Besylate (Amlodipine Besylate 10 Mg Tablet) 10 mg PO DAILY [facility]; Protocol Last Admin: 06/27/24 08:38 Dose: 10 mg Documented By: LEONARDO Apixaban (Apixaban 2.5 Mg Tablet) 2.5 mg PO BID [facility] Last Admin: 06/27/24 08:39 Dose: 2.5 mg Documented By: LEONARDO Ascorbic Acid (Ascorbic Acid 500 Mg Tablet) 500 mg PO BID [facility] Last Admin: 06/27/24 08:39 Dose: 500 mg Documented By: LEONARDO Bisacodyl (Bisacodyl 10 Mg Supp.Rect) 10 mg OR DAILY PRN PRN Reason: Constipation Calcium Carbonate (Calcium Carbonate 750 Mg Tab.Chew) 750 mg PO Q4H PRN PRN Reason: Heartburn Docusate Sodium (Docusate Sodium 100 Mg Capsule) 100 mg PO BID [facility] Last Admin: 06/27/24 08:36 Dose: 100 mg Documented By: LEONARDO Famotidine (Famotidine 20 Mg Tablet) 20 mg PO BEDTIME [facility] Last Admin: 06/26/24 21:40 Dose: 20 mg Documented By: BENJAMÍN Ferrous Sulfate (Ferrous Sulfate 324 Mg Tablet.) 324 mg PO BID [facility] Last Admin: 06/27/24 08:37 Dose: 324 mg Documented By: LEONARDO Gabapentin (Gabapentin 100 Mg Capsule) 100 mg PO BID [facility] Last Admin: 06/27/24 08:38 Dose: 100 mg Documented By: LEONARDO Levothyroxine Sodium (Levothyroxine Sodium 100 Mcg Tablet) 100 mcg PO DAILY@0600 [facility] Last Admin: 06/27/24 06:18 Dose: 100 mcg Documented By: BENJAMÍN Lidocaine (Lidocaine 4 % Patch Adh..Patch) 1 patch TRANSDERMA DAILY [facility] Last Admin: 06/27/24 08:39 Dose: 1 patch Documented By: LEONARDO Magnesium Hydroxide (Milk Of Magnesia 30 Ml Oral.Susp) 30 ml PO DAILY PRN PRN Reason: Constipation Magnesium Hydroxide (Milk Of Magnesia 30 Ml Oral.Susp) 30 ml PO DAILY PRN PRN Reason: Constipation Melatonin (Melatonin 3 Mg Tablet) 6 mg PO BEDTIME PRN PRN Reason: Insomnia Meropenem (Meropenem 500 Mg Vial) 500 mg IVPUSH Q12H [facility] Last Admin: 06/27/24 05:04 Dose: 500 mg Documented By: BENJAMÍN Multivitamins/Vitamin C (Multivitamin Tablet) 1 tab PO DAILY [facility] Last Admin: 06/27/24 08:38 Dose: 1 tab Documented By: LEONARDO Nystatin (Nystatin Powder 15 Gm Bottle) 1 appl TOPICAL DAILY [facility]; Protocol Polyethylene Glycol (Polyethylene Glycol 3350 17 Gm Powd.Pack) 17 gm PO DAILY [facility] Last Admin: 06/27/24 08:36 Dose: 17 gm Documented By: LEONARDO Quetiapine Fumarate (Quetiapine Fumarate 25 Mg Tablet) 25 mg PO BEDTIME [facility] Last Admin: 06/26/24 21:40 Dose: 25 mg Documented By: BENJAMÍN Senna (Sennosides 8.6 Mg Tablet) 17.2 mg PO BEDTIME [facility] Last Admin: 06/26/24 21:40 Dose: 17.2 mg Documented By: BENJAMÍN Sodium Chloride (0.9 % Sodium Chloride Flush 3 Ml Syringe) 3 ml IVFLUSH QSHIFT [facility] Last Admin: 06/27/24 08:39 Dose: 3 ml Documented By: LEONARDO Thiamine HCl (Thiamine Hcl 100 Mg Tablet) 100 mg PO DAILY [facility] Last Admin: 06/27/24 08:38 Dose: 100 mg Documented By: LEONARDO Labs 06/27/24 05:16 06/27/24 05:16 Labs: Laboratory Results - last 24 hr 06/26/24 06/26/24 06/27/24 14:39 17:14 05:16 MCV 85.6 85.3 MCH 26.8 L 26.1 L MCHC 31.3 30.6 L RDW 17.8 H 18.1 H Plt Count 180 212 MPV 10.3 9.6 Immature Gran % (Auto) 1.5 H Neut % (Auto) 78.3 H Lymph % (Auto) 10.7 L [place] % (Auto) 8.5 Eos % (Auto) 0.7 Baso % (Auto) 0.3 Lymph # (Auto) 1.3 [place] # (Auto) 1.0 Eos # (Auto) 0.1 Baso # (Auto) 0.0 Abs Immat Gran (auto) 0.18 H Absolute Neuts (auto) 9.3 H Absolute Nucleated RBC 0.000 0.020 H Nucleated RBC % (auto) 0.0 0.2 Anion Gap 13 15 Estim Creat Clear Calc 22.3 20.8 Estimated GFR 20 20 Random Glucose 108 76 Lactic Acid 1.2 Calcium 8.6 D 8.9 Magnesium 2.3 Total Bilirubin 0.5 AST 49 H ALT 33 Alkaline Phosphatase 113 Total Protein 7.6 Albumin 2.6 L Urine Color Yellow Urine Appearance Turbid Urine pH 6.0 Ur Specific [place] 1.010 Urine Protein 100 (2+) H Urine Glucose (UA) Negative Urine Ketones Negative Urine Blood Large (3+) H Urine Nitrite Negative Ur Leukocyte Esterase Large (3+) H Urine RBC >20 H Urine WBC >50 H Urine WBC Clumps Present Ur Squamous Epith Cells 0-2 Urine Bacteria 4+ Hyaline Casts 3-5 Granular Casts Present Waxy Casts Present Microbiology Microbiology Results: Microbiology 06/26/24 14:39 Blood Culture - Preliminary Blood - Venous Prelim: GNR Gram Stain only Assessment and Plan (1) Acute UTI: Status: Acute Plan 84M PMH pafib, hfref, htn, CKD III, GALLITO, prolonged hospitalizations at [facility] 02/2024 for aspiration pneumonia discharged to LTAC with tracheostomy and PEG, now at [facility], trache removed, eating by mouth, sent by [facility] for ESBL Acute urinary tract infection due to ESBL E coli and Klebsiella, now with GNR bacteremia IV meropenem, ID eval PRABHU on CKD 3 ?obstructive, cta/p with bilateral hydro desai, gu eval, monitor Paroxysmal atrial fibrillation eliquis, amio hypothyroid synthroid Chronic systolic CHF euvolemic DVT prophylaxis on Eliquis DNR, not DNI reason for continued hospitalization:cultures pending Quality Stroke Does the patient have a stroke diagnosis?: No VTE Prior VTE?: No VTE Risk Level:: Medical - moderate - high VTE Device Contraindication: Treatment Not Indicated VTE Drug Contraindication: N/A - Med Ordered
[2024-06-27 10:04] VITALS: BMI 32.4
--- NOTE | 2024-06-27 10:06 | MHC.CLN ---
RE: CONSULT PT WITH INCREASED NUTRITION RISK R/T PRESSURE INJURY REGULAR DIET-APPROPRIATE RECOMMEND ADDING ENSURE MAX TO PROMOTE WOUND HEALING SUPP TO PROVIDE 300KCALS, 60G PROTEIN MONITOR PO INTAKE AND ENCOURAGE SUPPLEMENTS SEE ALSO FULL CLINICAL NUTRITION ASSESSMENT
[2024-06-27] MEDS: Acetaminophen 325 MG TABLET 650 MG PO (10:36)
--- NOTE | 2024-06-27 13:32 | HO.WOUND ---
Wound Consult: Initial 84yr old? male admitted to [facility] on 06/26/24 - See progress notes and H&P for detailed history.? Wound consult placed for Toes, and coccyx wound POA.? Patient agreeable to assessment and photo documentation.? Sacrum Etiology: Unstagebale Pressure Injury ??Present on Admission Wound Bed: central adherent yellow slough Drainage / Odor: serosang drainage no odor noted Edges: ? irregular Shirley wound: ?MASD with firction noted scattered areas of open tissue - No Induration, Fluctuance or Warmth noted Pain: tenderness reported Goals of Treatment: ? Triad to allow for autolytic debridement and protect from moisture and friction Perineal and Scrotum - Fungal Dermatitis with MASD - red pink tissue with scattered areas of partial thickness tissue loss, fungal dermatitis with red macular papular rash advancing boarders and desquamation noted. Continue to treat with antifungal powder and barrier cream twice daily. Right Heel - red pink intact blanchable tissue - preventative foam applied and off loaded with pillows. Left Heel Etiology: Stage 1??Present on Admission Wound Bed: red pink outline with white pale central area - nonblanchable - concern for blister formation Drainage / Odor: none Edges: ? well defined Shirley wound: ?red pink intact slow to brendan tissue No Induration, Fluctuance or Warmth noted Pain: tenderness reported Goals of Treatment: ? Foam dressing applied and heels off loaded with pillows and heels Right Foot toes were noted for pink red intact blanchable tissue - may apply skin prep no other optical recommendations needed at this time. Recommendations: 1. Turn and Reposition every 2 hours and as needed for patient comfort.? Use pillows or wedges to support off loading positions. 2. Off Load all bony prominences with use of pillows and heel boots if needed.? Apply Preventative foams where needed. ? 3. Monitor for incontinence and moisture control, use barrier creams when needed for prevention and treatment. 4. Provide adequate and supplemental nutrition.? 5. Continue low air loss mattress. 6. When applicable maintain blood glucose levels per Providers order. 7. Sacrum - Off Load Pressure with Q2hr turns - Cleanse with PH balance spray or wipes, pat dry. ?Apply thin layer of Triad to wound bed - only pat and dab no scrub and rub when soiling occurs. Reapply thin layer PRN after each episode of incontinence. 8. Bilateral Heels - Elevate heels off of bed surface with pillows. Apply foam dressing to heels - peel back and assess Qshift and change every 5 days and PRN. 9. Perineal and Scrotum - Cleanse with PH balance wipes, pat dry with soft cloth.? Apply antifungal power to assist with moisture management.? Be sure to dust of excess powder to prevent caking on skin and in folds. Apply per provider orders. Apply barrier cream twice daily is moisture continues. Re-consult wound care Nurse for wound deterioration or wound changes.
[2024-06-27] MEDS: oxyCODONE HCl Immed Release 5 MG TABLET PO (13:51)
[2024-06-27] MEDS: Nystatin Powder 15 GM BOTTLE 1 APPL TOPICAL (13:56)
[2024-06-27 15:27] VITALS: BP 110/69; PULSE 75; RESP 18; TEMP 36.4; O2SAT 94
[2024-06-27 18:57] VITALS: BP 114/57; PULSE 69; RESP 18; TEMP 36.1; O2SAT 93
[2024-06-27] MEDS: Sennosides 8.6 MG TABLET 17.2 MG PO (20:55)
[2024-06-27] MEDS: Famotidine 20 MG TABLET PO (20:55)
[2024-06-27] MEDS: QUEtiapine Fumarate 25 MG TABLET PO (20:56)
[2024-06-28] VITALS (8 sets, daily range): BP systolic 106–132; BP diastolic 56–73; PULSE 67–86; RESP 16–18; TEMP 36.1–36.6; O2SAT 91–99
[2024-06-28] MEDS: Meropenem 500 MG VIAL IVPUSH ×2 (05:33→16:40)
[2024-06-28] MEDS: Levothyroxine Sodium 100 MCG TABLET PO (05:33)
[2024-06-28 06:42] LABS: Anion Gap 17 (12-20); Blood Urea Nitrogen 69 mg/dL (9-16); Calcium 9.1 mg/dL (8.4-10.2); Carbon Dioxide 18 mmol/L (22-29); Chloride 117 mmol/L (96-108); Creatinine Clr Calc Pharmacy 18.7; Estimated Glomerular Filt Rate 18; Glucose Random 90 mg/dL (60-115); Potassium 4.3 mmol/L (3.3-5.1); Sodium 148 mmol/L (135-145)
[2024-06-28 06:48] LABS: Hematocrit 26.3 % (42.0-52.0); Hemoglobin 8.1 g/dl (14.0-18.0); Mean Corpuscular HGB Conc 30.8 g/dl (31.0-36.0); Mean Corpuscular Hemoglobin 26.6 pg (27.0-33.0); Mean Corpuscular Volume 86.5 fL (80.0-98.0); Mean Platelet Volume 9.7 fL (9.4-12.4); Platelet Count 219 X10*3/uL (160-400); Red Blood Count 3.04 X10*6/uL (4.60-5.80); Red Cell Distribution Width 18.7 % (11.0-16.0); White Blood Count 11.4 X10*3/uL (4.8-10.8)
[2024-06-28] MEDS: Ascorbic Acid 500 MG TABLET PO ×2 (08:30→20:28)
[2024-06-28] MEDS: Apixaban 2.5 MG TABLET PO ×2 (08:30→20:28)
[2024-06-28] MEDS: Amiodarone HCL 200 MG TABLET PO (08:30)
[2024-06-28] MEDS: Docusate Sodium 100 MG CAPSULE PO ×2 (08:30→20:28)
[2024-06-28] MEDS: polyethylene glycoL 3350 17 GM POWD.PACK PO (08:30)
[2024-06-28] MEDS: Ferrous Sulfate 324 MG TABLET.DR PO ×2 (08:30→20:28)
[2024-06-28] MEDS: amLODIPine Besylate 10 MG TABLET PO (08:30)
[2024-06-28] MEDS: Multivitamin TABLET 1 TAB PO (08:31)
[2024-06-28] MEDS: 0.9 % Sodium Chloride Flush 3 ML SYRINGE IVFLUSH ×2 (08:31→16:40)
[2024-06-28] MEDS: Thiamine HCL 100 MG TABLET PO (08:31)
[2024-06-28] MEDS: Sodium Chloride 0.45 % 1,000 ML 100 ML IVCONT ×2 (08:31→20:02)
[2024-06-28] MEDS: Lidocaine 4 % Patch ADH..PATCH 1 PATCH TRANSDERMA (08:31)
[2024-06-28] MEDS: Gabapentin 100 MG CAPSULE PO ×2 (08:31→20:28)
--- NOTE | 2024-06-28 08:36 | HO.PM.IMPN ---
Subjective Subjective Date of Service: 06/28/24 Interval History: very tired today Physical Exam Vital Signs: Vital Signs: Last Vital Signs Temp 97.6 F 06/28/24 07:37 Pulse 81 06/28/24 08:25 Resp 18 06/28/24 07:37 BP 106/56 L 06/28/24 08:25 Pulse Ox 91 L 06/28/24 08:25 O2 Del Method Room Air 06/28/24 08:25 BMI result Body Mass Index 32.4 lethargic, ill appearing, oriented times 3 Objective Data Active Medications Acetaminophen (Acetaminophen 325 Mg Tablet) 650 mg PO Q6H PRN PRN Reason: Pain, Mild (Pain Scale 1-3), fever or headache Last Admin: 06/27/24 10:36 Dose: 650 mg Documented By: LEONARDO Albuterol Sulfate (Albuterol Sulfate (0.083%) 2.5 Mg/3 Ml Vial.Neb) 2.5 mg INHALE Q4H PRN PRN Reason: Shortness Of Breath Or Wheezing Amiodarone HCl (Amiodarone Hcl 200 Mg Tablet) 200 mg PO DAILY [facility] Last Admin: 06/27/24 08:38 Dose: 200 mg Documented By: LEONARDO Amlodipine Besylate (Amlodipine Besylate 10 Mg Tablet) 10 mg PO DAILY [facility]; Protocol Last Admin: 06/27/24 08:38 Dose: 10 mg Documented By: LEONARDO Apixaban (Apixaban 2.5 Mg Tablet) 2.5 mg PO BID [facility] Last Admin: 06/27/24 20:55 Dose: 2.5 mg Documented By: BENJAMÍN Ascorbic Acid (Ascorbic Acid 500 Mg Tablet) 500 mg PO BID [facility] Last Admin: 06/27/24 20:55 Dose: 500 mg Documented By: BENJAMÍN Bisacodyl (Bisacodyl 10 Mg Supp.Rect) 10 mg [place] DAILY PRN PRN Reason: Constipation Calcium Carbonate (Calcium Carbonate 750 Mg Tab.Chew) 750 mg PO Q4H PRN PRN Reason: Heartburn Docusate Sodium (Docusate Sodium 100 Mg Capsule) 100 mg PO BID [facility] Last Admin: 06/27/24 20:55 Dose: 100 mg Documented By: BENJAMÍN Famotidine (Famotidine 20 Mg Tablet) 20 mg PO BEDTIME [facility] Last Admin: 06/27/24 20:55 Dose: 20 mg Documented By: BENJAMÍN Ferrous Sulfate (Ferrous Sulfate 324 Mg Tablet.Dr) 324 mg PO BID [facility] Last Admin: 06/27/24 20:55 Dose: 324 mg Documented By: BENJAMÍN Gabapentin (Gabapentin 100 Mg Capsule) 100 mg PO BID [facility] Last Admin: 06/27/24 20:55 Dose: 100 mg Documented By: BENJAMÍN Sodium Chloride (Sodium Chloride 0.45 %) 1,000 mls @ 100 mls/hr IVCONT .Q10H [facility] Levothyroxine Sodium (Levothyroxine Sodium 100 Mcg Tablet) 100 mcg PO DAILY@0600 [facility] Last Admin: 06/28/24 05:33 Dose: 100 mcg Documented By: BENJAMÍN Lidocaine (Lidocaine 4 % Patch Adh..Patch) 1 patch TRANSDERMA DAILY [facility] Last Admin: 06/27/24 08:39 Dose: 1 patch Documented By: LEONARDO Magnesium Hydroxide (Milk Of Magnesia 30 Ml Oral.Susp) 30 ml PO DAILY PRN PRN Reason: Constipation Magnesium Hydroxide (Milk Of Magnesia 30 Ml Oral.Susp) 30 ml PO DAILY PRN PRN Reason: Constipation Melatonin (Melatonin 3 Mg Tablet) 6 mg PO BEDTIME PRN PRN Reason: Insomnia Meropenem (Meropenem 500 Mg Vial) 500 mg IVPUSH Q12H [facility] Last Admin: 06/28/24 05:33 Dose: 500 mg Documented By: BENJAMÍN Multivitamins/Vitamin C (Multivitamin Tablet) 1 tab PO DAILY [facility] Last Admin: 06/27/24 08:38 Dose: 1 tab Documented By: LEONARDO Nystatin (Nystatin Powder 15 Gm Bottle) 1 appl TOPICAL DAILY [facility]; Protocol Last Admin: 06/27/24 13:56 Dose: 1 appl Documented By: LEONARDO Oxycodone HCl (Oxycodone Hcl Immed Release 5 Mg Tablet) 5 mg PO Q6H PRN PRN Reason: Pain, Severe (Pain Scale 7-10) Last Admin: 06/27/24 13:51 Dose: 5 mg Documented By: LEONARDO Polyethylene Glycol (Polyethylene Glycol 3350 17 Gm Powd.Pack) 17 gm PO DAILY [facility] Last Admin: 06/27/24 08:36 Dose: 17 gm Documented By: LEONARDO Quetiapine Fumarate (Quetiapine Fumarate 25 Mg Tablet) 25 mg PO BEDTIME [facility] Last Admin: 06/27/24 20:56 Dose: 25 mg Documented By: BENJAMÍN Senna (Sennosides 8.6 Mg Tablet) 17.2 mg PO BEDTIME [facility] Last Admin: 06/27/24 20:55 Dose: 17.2 mg Documented By: BENJAMÍN Sodium Chloride (0.9 % Sodium Chloride Flush 3 Ml Syringe) 3 ml IVFLUSH QSHIFT [facility] Last Admin: 06/27/24 20:56 Dose: 3 ml Documented By: BENJAMÍN Thiamine HCl (Thiamine Hcl 100 Mg Tablet) 100 mg PO DAILY [facility] Last Admin: 06/27/24 08:38 Dose: 100 mg Documented By: LEONARDO Labs 06/28/24 05:28 06/28/24 05:28 Labs: Laboratory Results - last 24 hr 06/28/24 05:28 MCV 86.5 MCH 26.6 L MCHC 30.8 L RDW 18.7 H Plt Count 219 MPV 9.7 Absolute Nucleated RBC 0.000 Nucleated RBC % (auto) 0.0 Anion Gap 17 Estim Creat Clear Calc 18.7 Estimated GFR 18 Random Glucose 90 Calcium 9.1 Microbiology Microbiology Results: Microbiology 06/26/24 14:49 Blood Culture - Preliminary Blood - Venous No growth after 24 hours. 06/26/24 17:58 Urine Culture - Preliminary Urine clean catch - Clean Catch Midstream Culture in progress. 06/26/24 14:39 Blood Culture - Preliminary Blood - Venous Prelim: GNR Gram Stain only Assessment and Plan (1) Acute UTI: Status: Acute Plan 84M PMH pafib, hfref, htn, CKD III, GALLITO, prolonged hospitalizations at [facility] 02/2024 for aspiration pneumonia discharged to LTAC with tracheostomy and PEG, now at [place], trache removed, eating by mouth, sent by [place] for ESBL Acute urinary tract infection due to ESBL E coli and Klebsiella, now with GNR bacteremia IV meropenem, ID eval PRABHU on CKD 3 ?obstructive + hypovoelmic, cta/p with bilateral hydro desai, gu eval, monitor Paroxysmal atrial fibrillation eliquis, amio hypothyroid synthroid Chronic systolic CHF hypovolemic, montior closely while hydrating DVT prophylaxis on Eliquis DNR, not DNI reason for continued hospitalization:cultures pending Quality Stroke Does the patient have a stroke diagnosis?: No VTE Prior VTE?: No VTE Risk Level:: Medical - moderate - high VTE Device Contraindication: Treatment Not Indicated VTE Drug Contraindication: N/A - Med Ordered
[2024-06-28] MEDS: Nystatin Powder 15 GM BOTTLE 1 APPL TOPICAL (08:59)
[2024-06-28] MEDS: oxyCODONE HCl Immed Release 5 MG TABLET PO (09:38)
--- NOTE | 2024-06-28 10:34 | MHC.CM.PN ---
pt lives with they have 7 days a week /8 hrs a day private help he may need a avna annd a ride home when dcd
--- NOTE | 2024-06-28 10:57 | MHC.CM.PN ---
PT FROM [facility] WHERE HE WILL RETURN
--- NOTE | 2024-06-28 11:32 | MHC.CLN ---
F/U PT WITH INCREASED NUTRITION RISK R/T PRESSURE INJURY UNSTAGEABLE AREA TO COCCYX REGULAR DIET-APPROPRIATE ENSURE MAX BID TO PROMOTE WOUND HEALING SUPP TO PROVIDE 300KCALS, 60G PROTEIN INTAKE 25-50% MONITOR PO INTAKE AND ENCOURAGE SUPPLEMENTS
--- NOTE | 2024-06-28 17:29 | PC.NURSE ---
Pt A&Ox3, sleeping on and off throughout the day. Pt c/o intermittent cough MD jimenez made aware, encouraged incentive spirometer and cough and deep breathing.
[2024-06-28] MEDS: Famotidine 20 MG TABLET PO (20:28)
[2024-06-28] MEDS: QUEtiapine Fumarate 25 MG TABLET PO (20:28)
[2024-06-28] MEDS: Sennosides 8.6 MG TABLET 17.2 MG PO (20:28)
[2024-06-29] VITALS: RESP 18
[2024-06-29 03:12] VITALS: BP 127/60; PULSE 77; RESP 14; TEMP 36.3; O2SAT 94
[2024-06-29] MEDS: Meropenem 500 MG VIAL IVPUSH ×2 (05:28→16:46)
[2024-06-29] MEDS: Levothyroxine Sodium 100 MCG TABLET PO (05:28)
[2024-06-29] MEDS: Sodium Chloride 0.45 % 1,000 ML 100 ML IVCONT ×2 (05:29→16:46)
[2024-06-29 06:53] LABS: Anion Gap 15 (12-20); Blood Urea Nitrogen 58 mg/dL (9-16); Calcium 8.9 mg/dL (8.4-10.2); Carbon Dioxide 19 mmol/L (22-29); Chloride 116 mmol/L (96-108); Creatinine Clr Calc Pharmacy 23.2; Estimated Glomerular Filt Rate 23; Glucose Random 84 mg/dL (60-115); Potassium 3.8 mmol/L (3.3-5.1); Sodium 146 mmol/L (135-145)
[2024-06-29 07:08] LABS: Hematocrit 24.6 % (42.0-52.0); Hemoglobin 7.5 g/dl (14.0-18.0); Mean Corpuscular HGB Conc 30.5 g/dl (31.0-36.0); Mean Corpuscular Hemoglobin 26.1 pg (27.0-33.0); Mean Corpuscular Volume 85.7 fL (80.0-98.0); Mean Platelet Volume 9.1 fL (9.4-12.4); Platelet Count 186 X10*3/uL (160-400); Red Blood Count 2.87 X10*6/uL (4.60-5.80); Red Cell Distribution Width 18.3 % (11.0-16.0); White Blood Count 8.5 X10*3/uL (4.8-10.8)
[2024-06-29 08:00] VITALS: BP 129/63; PULSE 66; RESP 16; TEMP 36.6; O2SAT 97
--- NOTE | 2024-06-29 08:18 | HO.PM.IMPN ---
Subjective Subjective Date of Service: 06/29/24 Interval History: more alert Physical Exam Vital Signs: Vital Signs: Last Vital Signs Temp 97.8 F 06/29/24 08:00 Pulse 66 06/29/24 08:00 Resp 16 06/29/24 08:00 BP 129/63 06/29/24 08:00 Pulse Ox 97 06/29/24 08:00 O2 Del Method Room Air 06/29/24 08:00 O2 Flow Rate 2 06/28/24 19:22 BMI result Body Mass Index 32.4 lethargic, ill appearing, oriented times 3 Objective Data Active Medications Acetaminophen (Acetaminophen 325 Mg Tablet) 650 mg PO Q6H PRN PRN Reason: Pain, Mild (Pain Scale 1-3), fever or headache Last Admin: 06/27/24 10:36 Dose: 650 mg Documented By: LEONARDO Albuterol Sulfate (Albuterol Sulfate (0.083%) 2.5 Mg/3 Ml Vial.Neb) 2.5 mg INHALE Q4H PRN PRN Reason: Shortness Of Breath Or Wheezing Amiodarone HCl (Amiodarone Hcl 200 Mg Tablet) 200 mg PO DAILY [facility] Last Admin: 06/28/24 08:30 Dose: 200 mg Documented By: JANN Amlodipine Besylate (Amlodipine Besylate 10 Mg Tablet) 10 mg PO DAILY [facility]; Protocol Last Admin: 06/28/24 08:30 Dose: 10 mg Documented By: JANN Apixaban (Apixaban 2.5 Mg Tablet) 2.5 mg PO BID [facility] Last Admin: 06/28/24 20:28 Dose: 2.5 mg Documented By: DAVID Ascorbic Acid (Ascorbic Acid 500 Mg Tablet) 500 mg PO BID [facility] Last Admin: 06/28/24 20:28 Dose: 500 mg Documented By: DAVID Bisacodyl (Bisacodyl 10 Mg Supp.Rect) 10 mg [place] DAILY PRN PRN Reason: Constipation Calcium Carbonate (Calcium Carbonate 750 Mg Tab.Chew) 750 mg PO Q4H PRN PRN Reason: Heartburn Docusate Sodium (Docusate Sodium 100 Mg Capsule) 100 mg PO BID [facility] Last Admin: 06/28/24 20:28 Dose: 100 mg Documented By: DAVID Famotidine (Famotidine 20 Mg Tablet) 20 mg PO BEDTIME [facility] Last Admin: 06/28/24 20:28 Dose: 20 mg Documented By: DAVID Ferrous Sulfate (Ferrous Sulfate 324 Mg Tablet.) 324 mg PO BID [facility] Last Admin: 06/28/24 20:28 Dose: 324 mg Documented By: DAVID Gabapentin (Gabapentin 100 Mg Capsule) 100 mg PO BID [facility] Last Admin: 06/28/24 20:28 Dose: 100 mg Documented By: DAVID Sodium Chloride (Sodium Chloride 0.45 %) 1,000 mls @ 100 mls/hr IVCONT .Q10H [facility] Last Admin: 06/29/24 05:29 Dose: 100 mls/hr Documented By: DAVID Levothyroxine Sodium (Levothyroxine Sodium 100 Mcg Tablet) 100 mcg PO DAILY@0600 [facility] Last Admin: 06/29/24 05:28 Dose: 100 mcg Documented By: DAVID Lidocaine (Lidocaine 4 % Patch Adh..Patch) 1 patch TRANSDERMA DAILY [facility] Last Admin: 06/28/24 08:31 Dose: 1 patch Documented By: JANN Magnesium Hydroxide (Milk Of Magnesia 30 Ml Oral.Susp) 30 ml PO DAILY PRN PRN Reason: Constipation Melatonin (Melatonin 3 Mg Tablet) 6 mg PO BEDTIME PRN PRN Reason: Insomnia Meropenem (Meropenem 500 Mg Vial) 500 mg IVPUSH Q12H [facility] Last Admin: 06/29/24 05:28 Dose: 500 mg Documented By: DAVID Multivitamins/Vitamin C (Multivitamin Tablet) 1 tab PO DAILY [facility] Last Admin: 06/28/24 08:31 Dose: 1 tab Documented By: JANN Nystatin (Nystatin Powder 15 Gm Bottle) 1 appl TOPICAL DAILY [facility]; Protocol Last Admin: 06/28/24 08:59 Dose: 1 appl Documented By: JANN Oxycodone HCl (Oxycodone Hcl Immed Release 5 Mg Tablet) 5 mg PO Q6H PRN PRN Reason: Pain, Severe (Pain Scale 7-10) Last Admin: 06/28/24 09:38 Dose: 5 mg Documented By: JANN Polyethylene Glycol (Polyethylene Glycol 3350 17 Gm Powd.Pack) 17 gm PO DAILY [facility] Last Admin: 06/28/24 08:30 Dose: 17 gm Documented By: JANN Quetiapine Fumarate (Quetiapine Fumarate 25 Mg Tablet) 25 mg PO BEDTIME [facility] Last Admin: 06/28/24 20:28 Dose: 25 mg Documented By: DAVID Senna (Sennosides 8.6 Mg Tablet) 17.2 mg PO BEDTIME [facility] Last Admin: 06/28/24 20:28 Dose: 17.2 mg Documented By: DAVID Sodium Chloride (0.9 % Sodium Chloride Flush 3 Ml Syringe) 3 ml IVFLUSH QSHIFT [facility] Last Admin: 06/29/24 07:53 Dose: Not Given Documented By: NEENA Non-Admin Reason: IV Running Thiamine HCl (Thiamine Hcl 100 Mg Tablet) 100 mg PO DAILY [facility] Last Admin: 06/28/24 08:31 Dose: 100 mg Documented By: JANN Labs 06/29/24 05:28 06/29/24 05:28 Labs: Laboratory Results - last 24 hr 06/29/24 05:28 MCV 85.7 MCH 26.1 L MCHC 30.5 L RDW 18.3 H Plt Count 186 MPV 9.1 L Absolute Nucleated RBC 0.000 Nucleated RBC % (auto) 0.0 Anion Gap 15 Estim Creat Clear Calc 23.2 Estimated GFR 23 Random Glucose 84 Calcium 8.9 Microbiology Microbiology Results: Microbiology 06/26/24 17:58 Urine Culture - Final Urine clean catch - Clean Catch Midstream Klebsiella pneumoniae 06/26/24 14:39 Blood Culture - Final Blood - Venous Klebsiella pneumoniae 06/26/24 14:49 Blood Culture - Preliminary Blood - Venous No growth after 48 hours. Assessment and Plan (1) Acute UTI: Status: Acute Plan 84M PMH pafib, hfref, htn, CKD III, GALLITO, prolonged hospitalizations at [facility] [place] [place] 02/2024 for aspiration pneumonia discharged to LTAC with tracheostomy and PEG, now at [place], trache removed, eating by mouth, sent by [place] for ESBL Acute urinary tract infection due to ESBL Klebsiella, with bacteremia IV meropenem, ID eval PRABHU on CKD 3 ?obstructive + hypovoelmic, cta/p with bilateral hydro desai, gu eval, monitor Paroxysmal atrial fibrillation eliquis, amio hypothyroid synthroid Chronic systolic CHF hypovolemic, monitor closely while hydrating DVT prophylaxis on Eliquis DNR, not DNI reason for continued hospitalization:ID and gu eval Quality Stroke Does the patient have a stroke diagnosis?: No VTE Prior VTE?: No VTE Risk Level:: Medical - moderate - high VTE Device Contraindication: Treatment Not Indicated VTE Drug Contraindication: N/A - Med Ordered
[2024-06-29 09:59] VITALS: BP 129/63
[2024-06-29] MEDS: Ascorbic Acid 500 MG TABLET PO ×2 (09:59→19:56)
[2024-06-29] MEDS: Multivitamin TABLET 1 TAB PO (09:59)
[2024-06-29] MEDS: Amiodarone HCL 200 MG TABLET PO (09:59)
[2024-06-29] MEDS: Thiamine HCL 100 MG TABLET PO (09:59)
[2024-06-29] MEDS: Apixaban 2.5 MG TABLET PO ×2 (09:59→19:57)
[2024-06-29] MEDS: amLODIPine Besylate 10 MG TABLET PO (09:59)
[2024-06-29] MEDS: Gabapentin 100 MG CAPSULE PO ×2 (10:00→19:56)
[2024-06-29] MEDS: Lidocaine 4 % Patch ADH..PATCH 1 PATCH TRANSDERMA (10:00)
[2024-06-29] MEDS: polyethylene glycoL 3350 17 GM POWD.PACK PO (10:00)
[2024-06-29] MEDS: Docusate Sodium 100 MG CAPSULE PO ×2 (10:00→19:56)
[2024-06-29] MEDS: Ferrous Sulfate 324 MG TABLET.DR PO ×2 (10:00→19:56)
[2024-06-29] MEDS: Nystatin Powder 15 GM BOTTLE 1 APPL TOPICAL (10:01)
--- NOTE | 2024-06-29 10:28 | PM.CNGS ---
History of Present Illness Consult details Consult date: 06/28/24 Narrative: CC: Bilateral hydro 84-year-old male Complicated prior medical history Transferred from skilled nursing when found to have ESBL E coli and Klebsiella in urine culture sensitive to IV meds only Initial presentation in February for aspiration pneumonia. At that point required tracheostomy and PEG. On admission from skilled nursing trach has been removed and he is eating by mouth Initial imaging CT - there is moderate bilateral hydroureteronephrosis. No radiopaque ureteral calculi are identified. Bilateral perinephric stranding. Mild bilateral periureteral stranding. There is prominent stool in the rectum/distal sigmoid colon. Initial creatinine 2.9. Would benefit from Jamison catheter placement. May repeat renal ultrasound 48 hours after catheter placement to check for resolution of hydronephrosis. Complete antibiotics per Infectious Disease recommendations Initiate prostate medications Review of Systems Constitutional: Constitutional: Reports as per HPI and Reports no additional constitutional complaints Cardiovascular: Cardiovascular: Reports as per HPI and Reports no additional cardiovascular complaints Respiratory: Respiratory: Reports as per HPI and Reports no additional respiratory complaints Gastrointestinal: Gastrointestinal: Reports as per HPI and Reports no additional gastrointestinal complaints Genitourinary: Genitourinary: Reports as per HPI Musculoskeletal: Musculoskeletal: Reports no additional musculoskeletal complaints and Reports as per HPI Neurologic: Reports system reviewed and no additional complaints, except as documented and Reports as per HPI PMFSH Past Medical History Medical History Delirium Altered mental status Sepsis Atherosclerotic cardiovascular disease PAF (paroxysmal atrial fibrillation) NSTEMI (non-ST elevated myocardial infarction) Chronic renal disease, stage 3, moderately decreased glomerular filtration rate (GFR) between 30-59 mL/min/1.73 square meter Chest pain Heart failure Thyroid disease GERD (gastroesophageal reflux disease) On anticoagulant therapy COVID-19 vaccine series completed Symptomatic cholelithiasis HTN (hypertension) Hyperlipidemia Atrial fibrillation Sleep apnea Elevated PSA Facet arthropathy, cervical BPH loc w urin obs/LUTS Family History Family History Unknown No problems noted. Surgical History Surgical History S/P laparoscopic cholecystectomy Hx of cataract extraction History of total replacement of both hip joints Hx of cystoscopy H/O colonoscopy History of surgery Social History Social History Household Members: Spouse Housing: House Are you a primary wound care coordinator to a significant other at home: No Do you presently have visiting nurse or other home services: No Alcohol intake: never Comment: bilateral wrist restraints for airway/line safety Patient Tobacco Use Status: Never used Tobacco Advance Directives Date on File: 03/07/24 service: No Current occupational status: retired Meds Allergies Allergy/AdvReac Type Severity Reaction Status Date / Time ibuprofen [IBUPROFEN] Allergy Intermediate HIVES Verified 06/26/24 14:02 hydromorphone [From DILAUDID] AdvReac Intermediate ILEUS Verified 06/26/24 14:02 procaine [From Novocain] AdvReac Intermediate has no Verified 06/26/24 14:02 numbing effect-states monocain works narcotic pain meds AdvReac Intermediate does not Uncoded 06/26/24 14:02 relieve pain per patient Active Medications: Current Medications Acetaminophen (Acetaminophen 325 Mg Tablet) 650 mg PO Q6H PRN PRN Reason: Pain, Mild (Pain Scale 1-3), fever or headache Last Admin: 06/27/24 10:36 Dose: 650 mg Albuterol Sulfate (Albuterol Sulfate (0.083%) 2.5 Mg/3 Ml Vial.Neb) 2.5 mg INHALE Q4H PRN PRN Reason: Shortness Of Breath Or Wheezing Amiodarone HCl (Amiodarone Hcl 200 Mg Tablet) 200 mg PO DAILY [facility] Last Admin: 06/29/24 09:59 Dose: 200 mg Amlodipine Besylate (Amlodipine Besylate 10 Mg Tablet) 10 mg PO DAILY [facility]; Protocol Last Admin: 06/29/24 09:59 Dose: 10 mg Apixaban (Apixaban 2.5 Mg Tablet) 2.5 mg PO BID [facility] Last Admin: 06/29/24 09:59 Dose: 2.5 mg Ascorbic Acid (Ascorbic Acid 500 Mg Tablet) 500 mg PO BID [facility] Last Admin: 06/29/24 09:59 Dose: 500 mg Bisacodyl (Bisacodyl 10 Mg Supp.Rect) 10 mg [place] DAILY PRN PRN Reason: Constipation Calcium Carbonate (Calcium Carbonate 750 Mg Tab.Chew) 750 mg PO Q4H PRN PRN Reason: Heartburn Docusate Sodium (Docusate Sodium 100 Mg Capsule) 100 mg PO BID [facility] Last Admin: 06/29/24 10:00 Dose: 100 mg Famotidine (Famotidine 20 Mg Tablet) 20 mg PO BEDTIME [facility] Last Admin: 06/28/24 20:28 Dose: 20 mg Ferrous Sulfate (Ferrous Sulfate 324 Mg Tablet.Dr) 324 mg PO BID [facility] Last Admin: 06/29/24 10:00 Dose: 324 mg Gabapentin (Gabapentin 100 Mg Capsule) 100 mg PO BID [facility] Last Admin: 06/29/24 10:00 Dose: 100 mg Sodium Chloride (Sodium Chloride 0.45 %) 1,000 mls @ 100 mls/hr IVCONT .Q10H [facility] Last Admin: 06/29/24 05:29 Dose: 100 mls/hr Levothyroxine Sodium (Levothyroxine Sodium 100 Mcg Tablet) 100 mcg PO DAILY@0600 [facility] Last Admin: 06/29/24 05:28 Dose: 100 mcg Lidocaine (Lidocaine 4 % Patch Adh..Patch) 1 patch TRANSDERMA DAILY [facility] Last Admin: 06/29/24 10:00 Dose: 1 patch Magnesium Hydroxide (Milk Of Magnesia 30 Ml Oral.Susp) 30 ml PO DAILY PRN PRN Reason: Constipation Melatonin (Melatonin 3 Mg Tablet) 6 mg PO BEDTIME PRN PRN Reason: Insomnia Meropenem (Meropenem 500 Mg Vial) 500 mg IVPUSH Q12H [facility] Last Admin: 06/29/24 05:28 Dose: 500 mg Multivitamins/Vitamin C (Multivitamin Tablet) 1 tab PO DAILY [facility] Last Admin: 06/29/24 09:59 Dose: 1 tab Nystatin (Nystatin Powder 15 Gm Bottle) 1 appl TOPICAL DAILY [facility]; Protocol Last Admin: 06/29/24 10:01 Dose: 1 appl Oxycodone HCl (Oxycodone Hcl Immed Release 5 Mg Tablet) 5 mg PO Q6H PRN PRN Reason: Pain, Severe (Pain Scale 7-10) Last Admin: 06/28/24 09:38 Dose: 5 mg Polyethylene Glycol (Polyethylene Glycol 3350 17 Gm Powd.Pack) 17 gm PO DAILY [facility] Last Admin: 06/29/24 10:00 Dose: 17 gm Quetiapine Fumarate (Quetiapine Fumarate 25 Mg Tablet) 25 mg PO BEDTIME [facility] Last Admin: 06/28/24 20:28 Dose: 25 mg Senna (Sennosides 8.6 Mg Tablet) 17.2 mg PO BEDTIME [facility] Last Admin: 06/28/24 20:28 Dose: 17.2 mg Sodium Chloride (0.9 % Sodium Chloride Flush 3 Ml Syringe) 3 ml IVFLUSH QSHIFT [facility] Last Admin: 06/29/24 07:53 Dose: Not Given Thiamine HCl (Thiamine Hcl 100 Mg Tablet) 100 mg PO DAILY [facility] Last Admin: 06/29/24 09:59 Dose: 100 mg Home Medications ?Medication ?Instructions ?Recorded ?Confirmed ?Last Taken ?Type Lactobacillus acidophilus 1 1,000 mmu cells PO BID 06/26/24 06/26/24 Unknown History billion cell tablet acetaminophen 325 mg tablet 975 mg PO Q6H PRN Pain/Fever 06/26/24 06/26/24 Unknown History albuterol sulfate 2.5 mg/3 mL 2.5 mg inhalation Q4H PRN 06/26/24 06/26/24 Unknown History (0.083 %) solution for nebulization Shortness Of Breath Or Wheezing amiodarone 200 mg tablet 200 mg PO DAILY 06/26/24 06/26/24 Unknown History amlodipine 10 mg tablet 10 mg PO DAILY 06/26/24 06/26/24 Unknown History apixaban 5 mg tablet (Eliquis) 2.5 mg PO BID 06/26/24 06/26/24 Unknown History ascorbic acid (vitamin C) 500 mg 500 mg PO BID 06/26/24 06/26/24 Unknown History tablet bisacodyl 10 mg rectal suppository 10 mg [place] DAILY PRN Constipation 06/26/24 06/26/24 Unknown History docusate sodium 100 mg tablet 100 mg PO BID 06/26/24 06/26/24 Unknown History famotidine 20 mg tablet 20 mg PO BEDTIME 06/26/24 06/26/24 Unknown History ferrous sulfate 325 mg (65 mg 325 mg PO BID 06/26/24 06/26/24 Unknown History iron) tablet gabapentin 100 mg capsule 100 mg PO BID 06/26/24 06/26/24 Unknown History levothyroxine 100 mcg tablet 100 mcg PO DAILY@0600 06/26/24 06/26/24 Unknown History lidocaine 5 % topical patch 1 patch topical DAILY 06/26/24 06/26/24 Unknown History (Lidoderm) magnesium hydroxide 400 mg/5 mL 30 ml PO DAILY PRN Constipation 06/26/24 06/26/24 Unknown History oral suspension (Milk of Magnesia) melatonin 5 mg tablet 10 mg PO BEDTIME 06/26/24 06/26/24 Unknown History multivitamin 1 tab PO DAILY 06/26/24 06/26/24 Unknown History nystatin 100,000 unit/gram topical 1 appl topical DAILY 06/26/24 06/26/24 Unknown History powder polyvinyl alcohol 1.4 % eye drops 1 drp ophthalmic (eye) Q6H PRN Dry 06/26/24 06/26/24 Unknown History Eyes quetiapine 25 mg tablet 25 mg PO BEDTIME 06/26/24 06/26/24 Unknown History sennosides 8.6 mg tablet (senna) 17.2 mg PO BEDTIME 06/26/24 06/26/24 Unknown History sodium phosphates oral solution 15 ml PO Q2H PRN Constipation 06/26/24 06/26/24 Unknown History thiamine HCl (vitamin B1) 100 mg 100 mg PO DAILY 06/26/24 06/26/24 Unknown History tablet (Vitamin B-1) Physical Exam Vital Signs: Vital Signs: Last Vital Signs Temp 97.8 F 06/29/24 08:00 Pulse 66 06/29/24 08:00 Resp 16 06/29/24 08:00 BP 129/63 06/29/24 09:59 Pulse Ox 97 06/29/24 08:00 O2 Del Method Room Air 06/29/24 08:00 O2 Flow Rate 2 06/28/24 19:22 BMI result Body Mass Index 32.4 Const: General: cooperative, healthy appearing, comfortable and no acute distress Orientation/consciousness: patient oriented x3 HEENT: Face and sinus: Yes normal facial exam Mouth: moist mucous membranes Neck: Neck: Yes normal visual inspection, Yes full ROM and Yes trachea midline Chest: Chest palpation & inspection: normal inspection of the chest Resp: Effort & Inspection: normal respiratory effort, able to speak in complete sentences and no respiratory distress GI: Inspection: Yes normal to inspection Back/Spine/Pelvis: Cervical Spine: normal cervical lordosis Thoracic/Lumbar Spine: thoracic and lumbar spine normal to inspection Skin: General skin exam: no rashes or lesions noted Neuro: General: patient oriented x3, tone normal and moves all extremities Extrem: General: Yes normal to inspection and Yes capillary refill normal Results Labs 06/29/24 05:28 06/29/24 05:28 Labs: Abnormal lab results 06/29/24 Range/Units 05:28 RBC 2.87 L (4.60-5.80) X10*6/uL Hgb 7.5 L (14.0-18.0) g/dl Hct 24.6 L (42.0-52.0) % MCH 26.1 L (27.0-33.0) pg MCHC 30.5 L (31.0-36.0) g/dl RDW 18.3 H (11.0-16.0) % MPV 9.1 L (9.4-12.4) fL Sodium 146 H (135-145) mmol/L Chloride 116 H (96-108) mmol/L Carbon Dioxide 19 L (22-29) mmol/L BUN 58 H (9-16) mg/dL Creatinine 2.67 H (0.5-1.4) mg/dL Short CBC 06/29/24 Range/Units 05:28 WBC 8.5 (4.8-10.8) X10*3/uL Hgb 7.5 L (14.0-18.0) g/dl Hct 24.6 L (42.0-52.0) % Plt Count 186 (160-400) X10*3/uL BMP 06/29/24 05:28 Sodium 146 H Potassium 3.8 Chloride 116 H Carbon Dioxide 19 L BUN 58 H Creatinine 2.67 H Calcium 8.9 Urine 06/26/24 Range/Units 17:14 Urine Color Yellow Urine Appearance Turbid Urine pH 6.0 (5.0-9.0) Ur Specific [place] 1.010 (1.005-1.025) Urine Protein 100 (2+) H (Neg-Trace) mg/dL Urine Glucose (UA) Negative (Negative) mg/dL All other labs normal. Assessment and Plan (1) Bilateral hydronephrosis: Status: Acute (2) PRABHU (acute kidney injury): Status: Acute Plan Jamison catheter - repeat imaging Antibiotics Procedures Date of Service Date of Service: 06/29/24
[2024-06-29] MEDS: oxyCODONE HCl Immed Release 5 MG TABLET PO ×2 (10:56→23:35)
[2024-06-29 16:00] VITALS: BP 121/56; PULSE 75; RESP 16; TEMP 36.1; O2SAT 93
[2024-06-29 19:10] VITALS: BP 124/59; PULSE 84; RESP 18; TEMP 36.1; O2SAT 93
[2024-06-29] MEDS: Sennosides 8.6 MG TABLET 17.2 MG PO (19:55)
[2024-06-29] MEDS: QUEtiapine Fumarate 25 MG TABLET PO (19:56)
[2024-06-29] MEDS: Famotidine 20 MG TABLET PO (19:56)
[2024-06-29] MEDS: Doxazosin Mesylate 2 MG TABLET 4 MG PO (19:56)
[2024-06-30] VITALS (10 sets, daily range): BP systolic 98–134; BP diastolic 54–65; PULSE 74–86; RESP 14–18; TEMP 36.1–36.7; O2SAT 91–96
[2024-06-30] MEDS: Sodium Chloride 0.45 % 1,000 ML 100 ML IVCONT ×2 (02:09→15:01)
[2024-06-30] MEDS: Meropenem 500 MG VIAL IVPUSH ×2 (04:56→17:37)
[2024-06-30] MEDS: Levothyroxine Sodium 100 MCG TABLET PO (05:02)
[2024-06-30 06:27] LABS: Hematocrit 21.3 % (42.0-52.0); Mean Corpuscular HGB Conc 31.5 g/dl (31.0-36.0); Mean Corpuscular Hemoglobin 26.8 pg (27.0-33.0); Mean Corpuscular Volume 85.2 fL (80.0-98.0); Mean Platelet Volume 9.8 fL (9.4-12.4); Platelet Count 168 X10*3/uL (160-400); Red Cell Distribution Width 18.3 % (11.0-16.0); White Blood Count 6.9 X10*3/uL (4.8-10.8)
[2024-06-30 06:43] LABS: Hemoglobin 6.7 g/dl (14.0-18.0)
[2024-06-30 06:45] LABS: Alanine Aminotransferase 22 U/L (0-40); Albumin Level 2.1 g/dL (3.5-5.0); Alkaline Phosphatase 426 U/L (39-117); Anion Gap 13 (12-20); Aspartate Amino Transferase 57 U/L (5-37); Bilirubin Direct 0.2 mg/dL (0.0-0.5); Bilirubin Total 0.3 mg/dL (0.0-1.0); Blood Urea Nitrogen 50 mg/dL (9-16); Carbon Dioxide 19 mmol/L (22-29); Chloride 116 mmol/L (96-108); Creatinine Clr Calc Pharmacy 31.1; Estimated Glomerular Filt Rate 32; Glucose Random 99 mg/dL (60-115); Magnesium 1.9 mg/dL (1.6-2.6); Potassium 4.2 mmol/L (3.3-5.1); Sodium 144 mmol/L (135-145); Total Protein 6.1 g/dL (6.5-8.0)
--- NOTE | 2024-06-30 08:55 | P.PNIM_ITS ---
Subjective Subjective Date of Service: 06/30/24 Interval History: more alert Physical Exam 2 Vital Signs: Vital Signs: Last Vital Signs Temp 98.1 F 06/30/24 07:58 Pulse 84 06/30/24 07:58 Resp 18 06/30/24 07:58 BP 113/54 L 06/30/24 07:58 Pulse Ox 96 06/30/24 07:58 O2 Del Method Room Air 06/30/24 07:58 O2 Flow Rate 2 06/28/24 19:22 BMI result Body Mass Index 32.4 Const: General: cooperative, healthy appearing, comfortable and no acute distress Orientation/consciousness: patient oriented x3 HEENT: Face and sinus: Yes normal facial exam Mouth: moist mucous membranes Neck: Neck: Yes normal visual inspection, Yes full ROM and Yes trachea midline Chest: Chest palpation & inspection: normal inspection of the chest Resp: Effort & Inspection: normal respiratory effort, able to speak in complete sentences and no respiratory distress GI: Inspection: Yes normal to inspection Back/Spine/Pelvis: Cervical Spine: normal cervical lordosis Thoracic/Lumbar Spine: thoracic and lumbar spine normal to inspection Skin: General skin exam: no rashes or lesions noted Neuro: General: patient oriented x3, tone normal and moves all extremities Extrem: General: Yes normal to inspection and Yes capillary refill normal Objective Data Active Medications Acetaminophen (Acetaminophen 325 Mg Tablet) 650 mg PO Q6H PRN PRN Reason: Pain, Mild (Pain Scale 1-3), fever or headache Last Admin: 06/27/24 10:36 Dose: 650 mg Documented By: LEONARDO Albuterol Sulfate (Albuterol Sulfate (0.083%) 2.5 Mg/3 Ml Vial.Neb) 2.5 mg INHALE Q4H PRN PRN Reason: Shortness Of Breath Or Wheezing Amiodarone HCl (Amiodarone Hcl 200 Mg Tablet) 200 mg PO DAILY [facility] Last Admin: 06/29/24 09:59 Dose: 200 mg Documented By: NEENA Amlodipine Besylate (Amlodipine Besylate 10 Mg Tablet) 10 mg PO DAILY [facility]; Protocol Last Admin: 06/29/24 09:59 Dose: 10 mg Documented By: NEENA Apixaban (Apixaban 2.5 Mg Tablet) 2.5 mg PO BID [facility] Last Admin: 06/29/24 19:57 Dose: 2.5 mg Documented By: DAVID Ascorbic Acid (Ascorbic Acid 500 Mg Tablet) 500 mg PO BID [facility] Last Admin: 06/29/24 19:56 Dose: 500 mg Documented By: DAVID Bisacodyl (Bisacodyl 10 Mg Supp.Rect) 10 mg [place] DAILY PRN PRN Reason: Constipation Calcium Carbonate (Calcium Carbonate 750 Mg Tab.Chew) 750 mg PO Q4H PRN PRN Reason: Heartburn Docusate Sodium (Docusate Sodium 100 Mg Capsule) 100 mg PO BID [facility] Last Admin: 06/29/24 19:56 Dose: 100 mg Documented By: DAVID Doxazosin Mesylate (Doxazosin Mesylate 2 Mg Tablet) 4 mg PO BEDTIME [facility]; Protocol Last Admin: 06/29/24 19:56 Dose: 4 mg Documented By: DAVID Famotidine (Famotidine 20 Mg Tablet) 20 mg PO BEDTIME [facility] Last Admin: 06/29/24 19:56 Dose: 20 mg Documented By: DAVID Ferrous Sulfate (Ferrous Sulfate 324 Mg Tablet.Dr) 324 mg PO BID [facility] Last Admin: 06/29/24 19:56 Dose: 324 mg Documented By: DAVID Finasteride (Finasteride 5 Mg Tablet) 5 mg PO DAILY [facility] Gabapentin (Gabapentin 100 Mg Capsule) 100 mg PO BID [facility] Last Admin: 06/29/24 19:56 Dose: 100 mg Documented By: DAVID Sodium Chloride (Sodium Chloride 0.45 %) 1,000 mls @ 100 mls/hr IVCONT .Q10H [facility] Last Admin: 06/30/24 02:09 Dose: 100 mls/hr Documented By: DAVID Levothyroxine Sodium (Levothyroxine Sodium 100 Mcg Tablet) 100 mcg PO DAILY@0600 [facility] Last Admin: 06/30/24 05:02 Dose: 100 mcg Documented By: DAVID Lidocaine (Lidocaine 4 % Patch Adh..Patch) 1 patch TRANSDERMA DAILY [facility] Last Admin: 06/29/24 10:00 Dose: 1 patch Documented By: NEENA Magnesium Hydroxide (Milk Of Magnesia 30 Ml Oral.Susp) 30 ml PO DAILY PRN PRN Reason: Constipation Melatonin (Melatonin 3 Mg Tablet) 6 mg PO BEDTIME PRN PRN Reason: Insomnia Meropenem (Meropenem 500 Mg Vial) 500 mg IVPUSH Q12H [facility] Last Admin: 06/30/24 04:56 Dose: 500 mg Documented By: DAVID Multivitamins/Vitamin C (Multivitamin Tablet) 1 tab PO DAILY [facility] Last Admin: 06/29/24 09:59 Dose: 1 tab Documented By: NEENA Nystatin (Nystatin Powder 15 Gm Bottle) 1 appl TOPICAL DAILY [facility]; Protocol Last Admin: 06/29/24 10:01 Dose: 1 appl Documented By: NEENA Omeprazole (Omeprazole 20 Mg Capsule.Dr) 20 mg PO BID@0630,1630 [facility] Oxycodone HCl (Oxycodone Hcl Immed Release 5 Mg Tablet) 5 mg PO Q6H PRN PRN Reason: Pain, Severe (Pain Scale 7-10) Last Admin: 06/29/24 23:35 Dose: 5 mg Documented By: DAVID Polyethylene Glycol (Polyethylene Glycol 3350 17 Gm Powd.Pack) 17 gm PO DAILY [facility] Last Admin: 06/29/24 10:00 Dose: 17 gm Documented By: NEENA Quetiapine Fumarate (Quetiapine Fumarate 25 Mg Tablet) 25 mg PO BEDTIME [facility] Last Admin: 06/29/24 19:56 Dose: 25 mg Documented By: DAVID Senna (Sennosides 8.6 Mg Tablet) 17.2 mg PO BEDTIME [facility] Last Admin: 06/29/24 19:55 Dose: 17.2 mg Documented By: DAVID Sodium Chloride (0.9 % Sodium Chloride Flush 3 Ml Syringe) 3 ml IVFLUSH QSHIFT [facility] Last Admin: 06/30/24 07:04 Dose: Not Given Documented By: NEENA Non-Admin Reason: IV Running Thiamine HCl (Thiamine Hcl 100 Mg Tablet) 100 mg PO DAILY [facility] Last Admin: 06/29/24 09:59 Dose: 100 mg Documented By: NEENA Labs 06/30/24 05:50 06/30/24 05:50 Labs: Laboratory Results - last 24 hr 06/30/24 06/30/24 05:50 07:08 MCV 85.2 MCH 26.8 L MCHC 31.5 RDW 18.3 H Plt Count 168 MPV 9.8 Absolute Nucleated RBC 0.000 Nucleated RBC % (auto) 0.0 Anion Gap 13 Estim Creat Clear Calc 31.1 Estimated GFR 32 Random Glucose 99 Calcium 8.0 L D Magnesium 1.9 Total Bilirubin 0.3 Direct Bilirubin 0.2 AST 57 H ALT 22 Alkaline Phosphatase 426 H Total Protein 6.1 L Albumin 2.1 L Blood Type O Positive Antibody Screen NEGATIVE Crossmatch See Detail Microbiology Microbiology Results: Microbiology 06/26/24 17:58 Urine Culture - Final Urine clean catch - Clean Catch Midstream Klebsiella pneumoniae 06/26/24 14:39 Blood Culture - Final Blood - Venous Klebsiella pneumoniae Assessment and Plan (1) Acute UTI: Status: Acute Plan 84M PMH pafib, hfref, htn, CKD III, GALLITO, prolonged hospitalizations at [facility] 02/2024 for aspiration pneumonia discharged to LTAC with tracheostomy and PEG, now at [facility], trache removed, eating by mouth, sent by [facility] for ESBL Acute urinary tract infection due to ESBL Klebsiella, with bacteremia IV meropenem, ID eval PRABHU on CKD 3 ?obstructive + hypovoelmic, cta/p with bilateral hydro desai, monitor gu appreciated - recheck ct a/p now that patient has desai acute on chronic anemia multifactorial chronic blood loss, inflammatory, dilutional hold elliquis, ppi, gi eval, transfuse 1 unit prbc, monitor Paroxysmal atrial fibrillation eliquis on hold for possible bleed, amio hypothyroid synthroid Chronic systolic CHF hypovolemic, monitor closely while hydrating DVT prophylaxis - mechanical due to anemia DNR, not DNI reason for continued hospitalization: anemia Quality Stroke Does the patient have a stroke diagnosis?: No VTE Prior VTE?: No VTE Risk Level:: Medical - moderate - high VTE Device Contraindication: Treatment Not Indicated VTE Drug Contraindication: N/A - Med Ordered
[2024-06-30] MEDS: Docusate Sodium 100 MG CAPSULE PO ×2 (09:31→21:35)
[2024-06-30] MEDS: Omeprazole 20 MG CAPSULE.DR PO ×2 (09:32→16:56)
[2024-06-30] MEDS: amLODIPine Besylate 10 MG TABLET PO (09:32)
[2024-06-30] MEDS: Ascorbic Acid 500 MG TABLET PO ×2 (09:39→21:36)
[2024-06-30] MEDS: Thiamine HCL 100 MG TABLET PO (09:39)
[2024-06-30] MEDS: Amiodarone HCL 200 MG TABLET PO (09:39)
[2024-06-30] MEDS: Ferrous Sulfate 324 MG TABLET.DR PO ×2 (09:40→21:35)
[2024-06-30] MEDS: Multivitamin TABLET 1 TAB PO (09:40)
[2024-06-30] MEDS: Lidocaine 4 % Patch ADH..PATCH 1 PATCH TRANSDERMA (09:40)
[2024-06-30] MEDS: polyethylene glycoL 3350 17 GM POWD.PACK PO (09:40)
[2024-06-30] MEDS: Gabapentin 100 MG CAPSULE PO ×2 (09:40→21:36)
[2024-06-30] MEDS: Nystatin Powder 15 GM BOTTLE 1 APPL TOPICAL (09:40)
[2024-06-30] MEDS: Finasteride 5 MG TABLET PO (09:40)
--- NOTE | 2024-06-30 13:13 | CONS_ITS ---
DATE OF SERVICE: 06/30/2024 REFERRING PHYSICIAN: Dr. Foster REASON FOR CONSULTATION: Iron deficiency anemia. On Eliquis. 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 He has a history of anemia, and his hematocrit on admission was low at 26.8. This was improved from 24.2 on June 10. During course of his hospitalization, this has dropped slightly to 21.3 today, and he is currently receiving a unit of packed red blood cells. There has been no reported GI bleeding. Stool occult blood testing was last tested on June 10 when he was in the emergency department and was negative. Iron studies have shown a saturation of 8% consistent with iron deficiency anemia. He does take Eliquis for history of atrial fibrillation. He describes undergoing colonoscopy many years ago, which was unremarkable by his report. PAST MEDICAL HISTORY: 1. Atrial fibrillation. 2. Heart failure. 3. Hypertension. 4. Chronic kidney disease. 5. Coronary disease with history of SD. 6. Chronic renal failure stage 3. 7. Gastroesophageal reflux disease. 8. Hypertension. 9. Hyperlipidemia. 10. Elevated PSA. 11. GALLITO. PAST SURGICAL HISTORY: Includes cholecystectomy, cataracts, hip surgery, cystoscopy, and colonoscopy. CURRENT MEDICATIONS: Current medication list is extensive and is reviewed in the electronic medical record. ALLERGIES: MULTIPLE MEDICATION ALLERGIES ARE REVIEWED. FAMILY HISTORY: This is reviewed with the patient and is noncontributory. 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 There is no current tobacco, alcohol, or substance abuse. REVIEW OF SYSTEMS: SKIN: No pruritus. HEENT negative. CARDIOPULMONARY: He denies shortness of breath or chest pain. GASTROINTESTINAL: As above. GENITOURINARY: Negative. NEUROPSYCHIATRIC: Negative. PHYSICAL EXAMINATION: GENERAL: Shows a pleasant male, lying comfortably in bed. SKIN: Pale. HEENT: Shows no scleral icterus. NECK: Without lymphadenopathy or thyromegaly. LUNGS: Clear. HEART: Shows a regular rate and rhythm. S1, S2. No murmur. ABDOMEN: Soft without focal masses or tenderness. Bowel sounds are present. No organomegaly is noted. EXTREMITIES: Without edema. Onychomycosis is present. LABORATORY DATA AND IMAGING STUDIES: Reviewed. IMPRESSION: Iron deficiency anemia. Further evaluation with endoscopy and colonoscopy could be considered as an outpatient pending his clinical course after treatment of his urinary tract infection. I discussed this with him. He will consider this. He is more concerned about his inability to walk and requirement for care. I agree with transfusing him and following his hematocrit and continuing on a proton pump inhibitor empirically. Thanks for asking me to see him. I will follow him in the hospital with you. MD MAR Rocha/TERESITA / [phone]
--- NOTE | 2024-06-30 16:59 | PC.NURSE ---
Attempt to place IV in patient, unable, Primary RN to notify MD.
--- NOTE | 2024-06-30 21:29 | P.CNID_ITS ---
History of Present Illness Data of Consult Service Date: 06/30/24 Requesting physician: Carlos Foster Primary Care Provider: Zak Zuluaga MD HPI Reason for consult: Klebsiella pneumonia sepsis,urine source He is apparently sent from [facility] for left abdominal discomfort,not otherwise specified. He has had E coli and Klebsiella both ESBL reported in urine from 06/22. He has now no fever or leukocytosis but does have ESBL Klebsiella in blood. He was seen by Urology. He has moderate bilateral hydronephrosis,no reported need for stent. He is on Merem. He has had stay in February and trach and peg. He has had respiratory failure and then trach and peg, Review of Systems 2 Review of Systems: Yes all other systems are reviewed and are negative [facility] Past Medical History Medical History Delirium Altered mental status Sepsis Atherosclerotic cardiovascular disease PAF (paroxysmal atrial fibrillation) NSTEMI (non-ST elevated myocardial infarction) Chronic renal disease, stage 3, moderately decreased glomerular filtration rate (GFR) between 30-59 mL/min/1.73 square meter Chest pain Heart failure Thyroid disease GERD (gastroesophageal reflux disease) On anticoagulant therapy COVID-19 vaccine series completed Symptomatic cholelithiasis HTN (hypertension) Hyperlipidemia Atrial fibrillation Sleep apnea Elevated PSA Facet arthropathy, cervical BPH loc w urin obs/LUTS Family History Family History Unknown No problems noted. Family history: reviewed and not pertinent Surgical History Surgical History S/P laparoscopic cholecystectomy Hx of cataract extraction History of total replacement of both hip joints Hx of cystoscopy H/O colonoscopy History of surgery Social History Social History Household Members: Spouse Housing: House Are you a primary healthcare technician to a significant other at home: No Do you presently have visiting nurse or other home services: No Alcohol intake: never Comment: bilateral wrist restraints for airway/line safety Patient Tobacco Use Status: Never used Tobacco Advance Directives Date on File: 03/07/24 service: No Current occupational status: retired Meds Allergies Allergy/AdvReac Type Severity Reaction Status Date / Time ibuprofen [IBUPROFEN] Allergy Intermediate HIVES Verified 06/26/24 14:02 hydromorphone [From DILAUDID] AdvReac Intermediate ILEUS Verified 06/26/24 14:02 procaine [From Novocain] AdvReac Intermediate has no Verified 06/26/24 14:02 numbing effect-states monocain works narcotic pain meds AdvReac Intermediate does not Uncoded 06/26/24 14:02 relieve pain per patient Active Medications: Current Medications Acetaminophen (Acetaminophen 325 Mg Tablet) 650 mg PO Q6H PRN PRN Reason: Pain, Mild (Pain Scale 1-3), fever or headache Last Admin: 06/27/24 10:36 Dose: 650 mg Albuterol Sulfate (Albuterol Sulfate (0.083%) 2.5 Mg/3 Ml Vial.Neb) 2.5 mg INHALE Q4H PRN PRN Reason: Shortness Of Breath Or Wheezing Amiodarone HCl (Amiodarone Hcl 200 Mg Tablet) 200 mg PO DAILY [facility] Last Admin: 06/30/24 09:39 Dose: 200 mg Amlodipine Besylate (Amlodipine Besylate 10 Mg Tablet) 10 mg PO DAILY [facility]; Protocol Last Admin: 06/30/24 09:32 Dose: 10 mg Apixaban (Apixaban 2.5 Mg Tablet) 2.5 mg PO BID [facility] Last Admin: 06/29/24 19:57 Dose: 2.5 mg Ascorbic Acid (Ascorbic Acid 500 Mg Tablet) 500 mg PO BID [facility] Last Admin: 06/30/24 09:39 Dose: 500 mg Bisacodyl (Bisacodyl 10 Mg Supp.Rect) 10 mg HI DAILY PRN PRN Reason: Constipation Calcium Carbonate (Calcium Carbonate 750 Mg Tab.Chew) 750 mg PO Q4H PRN PRN Reason: Heartburn Docusate Sodium (Docusate Sodium 100 Mg Capsule) 100 mg PO BID [facility] Last Admin: 06/30/24 09:31 Dose: 100 mg Doxazosin Mesylate (Doxazosin Mesylate 2 Mg Tablet) 4 mg PO BEDTIME [facility]; Protocol Last Admin: 06/29/24 19:56 Dose: 4 mg Famotidine (Famotidine 20 Mg Tablet) 20 mg PO BEDTIME [facility] Last Admin: 06/29/24 19:56 Dose: 20 mg Ferrous Sulfate (Ferrous Sulfate 324 Mg Tablet.) 324 mg PO BID [facility] Last Admin: 06/30/24 09:40 Dose: 324 mg Finasteride (Finasteride 5 Mg Tablet) 5 mg PO DAILY [facility] Last Admin: 06/30/24 09:40 Dose: 5 mg Gabapentin (Gabapentin 100 Mg Capsule) 100 mg PO BID [facility] Last Admin: 06/30/24 09:40 Dose: 100 mg Sodium Chloride (Sodium Chloride 0.45 %) 1,000 mls @ 100 mls/hr IVCONT .Q10H [facility] Last Infusion: 06/30/24 17:37 Dose: 100 mls/hr Levothyroxine Sodium (Levothyroxine Sodium 100 Mcg Tablet) 100 mcg PO DAILY@0600 [facility] Last Admin: 06/30/24 05:02 Dose: 100 mcg Lidocaine (Lidocaine 4 % Patch Adh..Patch) 1 patch TRANSDERMA DAILY [facility] Last Admin: 06/30/24 09:40 Dose: 1 patch Magnesium Hydroxide (Milk Of Magnesia 30 Ml Oral.Susp) 30 ml PO DAILY PRN PRN Reason: Constipation Melatonin (Melatonin 3 Mg Tablet) 6 mg PO BEDTIME PRN PRN Reason: Insomnia Meropenem (Meropenem 500 Mg Vial) 500 mg IVPUSH Q12H [facility] Last Admin: 06/30/24 17:37 Dose: 500 mg Multivitamins/Vitamin C (Multivitamin Tablet) 1 tab PO DAILY [facility] Last Admin: 06/30/24 09:40 Dose: 1 tab Nystatin (Nystatin Powder 15 Gm Bottle) 1 appl TOPICAL DAILY [facility]; Protocol Last Admin: 06/30/24 09:40 Dose: 1 appl Omeprazole (Omeprazole 20 Mg Capsule.) 20 mg PO BID@0630,1630 [facility] Last Admin: 06/30/24 16:56 Dose: 20 mg Oxycodone HCl (Oxycodone Hcl Immed Release 5 Mg Tablet) 5 mg PO Q6H PRN PRN Reason: Pain, Severe (Pain Scale 7-10) Last Admin: 06/29/24 23:35 Dose: 5 mg Polyethylene Glycol (Polyethylene Glycol 3350 17 Gm Powd.Pack) 17 gm PO DAILY [facility] Last Admin: 06/30/24 09:40 Dose: 17 gm Quetiapine Fumarate (Quetiapine Fumarate 25 Mg Tablet) 25 mg PO BEDTIME [facility] Last Admin: 06/29/24 19:56 Dose: 25 mg Senna (Sennosides 8.6 Mg Tablet) 17.2 mg PO BEDTIME [facility] Last Admin: 06/29/24 19:55 Dose: 17.2 mg Sodium Chloride (0.9 % Sodium Chloride Flush 3 Ml Syringe) 3 ml IVFLUSH QSHIFT [facility] Last Admin: 06/30/24 15:01 Dose: Not Given Thiamine HCl (Thiamine Hcl 100 Mg Tablet) 100 mg PO DAILY [facility] Last Admin: 06/30/24 09:39 Dose: 100 mg Home Medications ?Medication ?Instructions ?Recorded ?Confirmed ?Last Taken ?Type Lactobacillus acidophilus 1 1,000 mmu cells PO BID 06/26/24 06/26/24 Unknown History billion cell tablet acetaminophen 325 mg tablet 975 mg PO Q6H PRN Pain/Fever 06/26/24 06/26/24 Unknown History albuterol sulfate 2.5 mg/3 mL 2.5 mg inhalation Q4H PRN 06/26/24 06/26/24 Unknown History (0.083 %) solution for nebulization Shortness Of Breath Or Wheezing amiodarone 200 mg tablet 200 mg PO DAILY 06/26/24 06/26/24 Unknown History amlodipine 10 mg tablet 10 mg PO DAILY 06/26/24 06/26/24 Unknown History apixaban 5 mg tablet (Eliquis) 2.5 mg PO BID 06/26/24 06/26/24 Unknown History ascorbic acid (vitamin C) 500 mg 500 mg PO BID 06/26/24 06/26/24 Unknown History tablet bisacodyl 10 mg rectal suppository 10 mg HI DAILY PRN Constipation 06/26/24 06/26/24 Unknown History docusate sodium 100 mg tablet 100 mg PO BID 06/26/24 06/26/24 Unknown History famotidine 20 mg tablet 20 mg PO BEDTIME 06/26/24 06/26/24 Unknown History ferrous sulfate 325 mg (65 mg 325 mg PO BID 06/26/24 06/26/24 Unknown History iron) tablet gabapentin 100 mg capsule 100 mg PO BID 06/26/24 06/26/24 Unknown History levothyroxine 100 mcg tablet 100 mcg PO DAILY@0600 06/26/24 06/26/24 Unknown History lidocaine 5 % topical patch 1 patch topical DAILY 06/26/24 06/26/24 Unknown History (Lidoderm) magnesium hydroxide 400 mg/5 mL 30 ml PO DAILY PRN Constipation 06/26/24 06/26/24 Unknown History oral suspension (Milk of Magnesia) melatonin 5 mg tablet 10 mg PO BEDTIME 06/26/24 06/26/24 Unknown History multivitamin 1 tab PO DAILY 06/26/24 06/26/24 Unknown History nystatin 100,000 unit/gram topical 1 appl topical DAILY 06/26/24 06/26/24 Unknown History powder polyvinyl alcohol 1.4 % eye drops 1 drp ophthalmic (eye) Q6H PRN Dry 06/26/24 06/26/24 Unknown History Eyes quetiapine 25 mg tablet 25 mg PO BEDTIME 06/26/24 06/26/24 Unknown History sennosides 8.6 mg tablet (senna) 17.2 mg PO BEDTIME 06/26/24 06/26/24 Unknown History sodium phosphates oral solution 15 ml PO Q2H PRN Constipation 06/26/24 06/26/24 Unknown History thiamine HCl (vitamin B1) 100 mg 100 mg PO DAILY 06/26/24 06/26/24 Unknown History tablet (Vitamin B-1) Physical Exam 2 Vital Signs: Vital Signs: Last Vital Signs Temp 97.0 F 06/30/24 19:06 Pulse 80 06/30/24 19:06 Resp 18 06/30/24 19:06 BP 120/58 L 06/30/24 19:06 Pulse Ox 95 06/30/24 19:06 O2 Del Method Room Air 06/30/24 19:06 O2 Flow Rate 2 06/28/24 19:22 BMI result Body Mass Index 32.4 Const: General: cooperative HEENT: Head: Yes normal to inspection Face and sinus: Yes normal facial exam Mouth: Normal oral and palatal mucosa present Teeth and gingiva: d entition normal Eyes: General: appearance normal, both eyes and all related structures P upils: Equal, round and reactive pupils present Resp: Effort & Inspection: normal respiratory effort Cardio: Rate: regular rate Rhythm: regular rhythm GI: Palpation (GI): Soft to palpation and nontender : Other: clear [place]ison General: Yes no CVA tenderness Back/Spine/Pelvis: Back: no CVA tenderness Skin: General skin exam: no rashes or lesions noted Neuro: General: moves all extremities Cranial nerves: Yes Equal, round and reactive pupils present Extrem: General: Yes normal to inspection Psych: Appearance: grossly normal Results Labs 06/30/24 05:50 06/30/24 05:50 Labs: Short CBC 06/30/24 Range/Units 05:50 WBC 6.9 (4.8-10.8) X10*3/uL Hgb 6.7 L* (14.0-18.0) g/dl Hct 21.3 L (42.0-52.0) % Plt Count 168 (160-400) X10*3/uL BMP 06/30/24 05:50 Sodium 144 Potassium 4.2 Chloride 116 H Carbon Dioxide 19 L BUN 50 H Creatinine 1.99 H Calcium 8.0 L D Liver Function 06/30/24 Range/Units 05:50 Total Bilirubin 0.3 (0.0-1.0) mg/dL Direct Bilirubin 0.2 (0.0-0.5) mg/dL AST 57 H (5-37) U/L ALT 22 (0-40) U/L Alkaline Phosphatase 426 H (39-117) U/L Albumin 2.1 L (3.5-5.0) g/dL Microbiology Microbiology Results: Microbiology 06/26/24 17:58 Urine clean catch - Clean Catch Midstream Urine Culture - Final Klebsiella pneumoniae 06/26/24 14:39 Blood - Venous Blood Culture - Final Klebsiella pneumoniae 06/26/24 14:49 Blood - Venous Blood Culture - Preliminary No growth after 48 hours. Assessment and Plan (1) Bilateral hydronephrosis: Status: Acute (2) Acute UTI: Status: Acute Plan ESBL Klebsiella bacteremia Likely urinary source with mild to moderate hydronephrosis mentioned No obvious prostate source mentioned. 14 d total IV antibiotics (Merem to Ertapenem) Follow Urology
[2024-06-30] MEDS: Melatonin 3 MG TABLET 6 MG PO (21:35)
[2024-06-30] MEDS: Sennosides 8.6 MG TABLET 17.2 MG PO (21:35)
[2024-06-30] MEDS: Acetaminophen 325 MG TABLET 650 MG PO (21:36)
[2024-06-30] MEDS: Doxazosin Mesylate 2 MG TABLET 4 MG PO (21:36)
[2024-06-30] MEDS: Famotidine 20 MG TABLET PO (21:36)
[2024-06-30] MEDS: QUEtiapine Fumarate 25 MG TABLET PO (21:36)
--- NOTE | 2024-06-30 23:00 | PC.NURSE ---
multiple attempts to keep CPAP on patient by this RN and RT. Pt continues to remove mask, SpO2 satting at 93%, respirations even and nonlabored, in no apparent distress.
[2024-07-01 00:34] VITALS: RESP 18
[2024-07-01] MEDS: Sodium Chloride 0.45 % 1,000 ML 100 ML IVCONT (01:43)
[2024-07-01] MEDS: oxyCODONE HCl Immed Release 5 MG TABLET PO ×2 (01:58→23:30)
[2024-07-01 03:17] VITALS: BP 114/53; PULSE 59; RESP 14; TEMP 36.1; O2SAT 95
[2024-07-01] MEDS: Levothyroxine Sodium 100 MCG TABLET PO (05:35)
[2024-07-01] MEDS: Omeprazole 20 MG CAPSULE.DR PO ×2 (05:35→18:03)
[2024-07-01] MEDS: Meropenem 500 MG VIAL IVPUSH ×2 (05:36→18:03)
[2024-07-01 06:15] LABS: Hematocrit 25.3 % (42.0-52.0); Hemoglobin 7.6 g/dl (14.0-18.0); Mean Corpuscular Hemoglobin 25.8 pg (27.0-33.0); Mean Corpuscular Volume 85.8 fL (80.0-98.0); Mean Platelet Volume 9.6 fL (9.4-12.4); Platelet Count 154 X10*3/uL (160-400); Red Blood Count 2.95 X10*6/uL (4.60-5.80); Red Cell Distribution Width 18.3 % (11.0-16.0); White Blood Count 6.6 X10*3/uL (4.8-10.8)
[2024-07-01 06:31] LABS: Anion Gap 13 (12-20); Blood Urea Nitrogen 39 mg/dL (9-16); Calcium 8.8 mg/dL (8.4-10.2); Carbon Dioxide 18 mmol/L (22-29); Chloride 116 mmol/L (96-108); Creatinine Clr Calc Pharmacy 37.1; Estimated Glomerular Filt Rate 39; Glucose Random 88 mg/dL (60-115); Potassium 3.9 mmol/L (3.3-5.1); Sodium 143 mmol/L (135-145)
[2024-07-01 07:59] VITALS: BP 141/65; PULSE 72; RESP 18; TEMP 36.1; O2SAT 95
--- NOTE | 2024-07-01 08:19 | HO.PM.IMPN ---
Subjective Subjective Date of Service: 07/01/24 Interval History: gasper confused yesterday and today Physical Exam Vital Signs: Vital Signs: Last Vital Signs Temp 96.9 F 07/01/24 07:59 Pulse 72 07/01/24 07:59 Resp 18 07/01/24 07:59 BP 141/65 H 07/01/24 07:59 Pulse Ox 95 07/01/24 07:59 O2 Del Method Room Air 07/01/24 07:59 O2 Flow Rate 2 06/28/24 19:22 BMI result Body Mass Index 32.4 Const: General: cooperative HEENT: Head: Yes normal to inspection Face and sinus: Yes normal facial exam Mouth: Normal oral and palatal mucosa present Teeth and gingiva: dentition normal Eyes: General: appearance normal, both eyes and all related structures Pupils: Equal, round and reactive pupils present Resp: Effort & Inspection: normal respiratory effort Cardio: Rate: regular rate Rhythm: regular rhythm GI: Palpation (GI): Soft to palpation and nontender : Other: clear Desai General: Yes no CVA tenderness Back/Spine/Pelvis: Back: no CVA tenderness Skin: General skin exam: no rashes or lesions noted Neuro: General: moves all extremities Cranial nerves: Yes Equal, round and reactive pupils present Extrem: General: Yes normal to inspection Psych: Appearance: grossly normal Objective Data Active Medications Acetaminophen (Acetaminophen 325 Mg Tablet) 650 mg PO Q6H PRN PRN Reason: Pain, Mild (Pain Scale 1-3), fever or headache Last Admin: 06/30/24 21:36 Dose: 650 mg Documented By: SAMANTHA Albuterol Sulfate (Albuterol Sulfate (0.083%) 2.5 Mg/3 Ml Vial.Neb) 2.5 mg INHALE Q4H PRN PRN Reason: Shortness Of Breath Or Wheezing Amiodarone HCl (Amiodarone Hcl 200 Mg Tablet) 200 mg PO DAILY [facility] Last Admin: 06/30/24 09:39 Dose: 200 mg Documented By: NEENA Amlodipine Besylate (Amlodipine Besylate 10 Mg Tablet) 10 mg PO DAILY [facility]; Protocol Last Admin: 06/30/24 09:32 Dose: 10 mg Documented By: NEENA Apixaban (Apixaban 2.5 Mg Tablet) 2.5 mg PO BID [facility] Last Admin: 06/29/24 19:57 Dose: 2.5 mg Documented By: DAVID Ascorbic Acid (Ascorbic Acid 500 Mg Tablet) 500 mg PO BID [facility] Last Admin: 06/30/24 21:36 Dose: 500 mg Documented By: SAMANTHA Bisacodyl (Bisacodyl 10 Mg Supp.Rect) 10 mg IN DAILY PRN PRN Reason: Constipation Calcium Carbonate (Calcium Carbonate 750 Mg Tab.Chew) 750 mg PO Q4H PRN PRN Reason: Heartburn Docusate Sodium (Docusate Sodium 100 Mg Capsule) 100 mg PO BID [facility] Last Admin: 06/30/24 21:35 Dose: 100 mg Documented By: SAMANTHA Doxazosin Mesylate (Doxazosin Mesylate 2 Mg Tablet) 4 mg PO BEDTIME [facility]; Protocol Last Admin: 06/30/24 21:36 Dose: 4 mg Documented By: SAMANTHA Famotidine (Famotidine 20 Mg Tablet) 20 mg PO BEDTIME [facility] Last Admin: 06/30/24 21:36 Dose: 20 mg Documented By: SAMANTHA Ferrous Sulfate (Ferrous Sulfate 324 Mg Tablet.Dr) 324 mg PO BID [facility] Last Admin: 06/30/24 21:35 Dose: 324 mg Documented By: SAMANTHA Finasteride (Finasteride 5 Mg Tablet) 5 mg PO DAILY [facility] Last Admin: 06/30/24 09:40 Dose: 5 mg Documented By: NEENA Gabapentin (Gabapentin 100 Mg Capsule) 100 mg PO BID [facility] Last Admin: 06/30/24 21:36 Dose: 100 mg Documented By: SAMANTHA Levothyroxine Sodium (Levothyroxine Sodium 100 Mcg Tablet) 100 mcg PO DAILY@0600 [facility] Last Admin: 07/01/24 05:35 Dose: 100 mcg Documented By: SAMANTHA Lidocaine (Lidocaine 4 % Patch Adh..Patch) 1 patch TRANSDERMA DAILY [facility] Last Admin: 06/30/24 09:40 Dose: 1 patch Documented By: NEENA Magnesium Hydroxide (Milk Of Magnesia 30 Ml Oral.Susp) 30 ml PO DAILY PRN PRN Reason: Constipation Melatonin (Melatonin 3 Mg Tablet) 6 mg PO BEDTIME PRN PRN Reason: Insomnia Last Admin: 06/30/24 21:35 Dose: 6 mg Documented By: SAMANTHA Meropenem (Meropenem 500 Mg Vial) 500 mg IVPUSH Q12H [facility] Last Admin: 07/01/24 05:36 Dose: 500 mg Documented By: SAMANTHA Multivitamins/Vitamin C (Multivitamin Tablet) 1 tab PO DAILY [facility] Last Admin: 06/30/24 09:40 Dose: 1 tab Documented By: NEENA Nystatin (Nystatin Powder 15 Gm Bottle) 1 appl TOPICAL DAILY [facility]; Protocol Last Admin: 06/30/24 09:40 Dose: 1 appl Documented By: NEENA Omeprazole (Omeprazole 20 Mg Capsule.Dr) 20 mg PO BID@0630,1630 [facility] Last Admin: 07/01/24 05:35 Dose: 20 mg Documented By: SAMANTHA Oxycodone HCl (Oxycodone Hcl Immed Release 5 Mg Tablet) 5 mg PO Q6H PRN PRN Reason: Pain, Severe (Pain Scale 7-10) Last Admin: 07/01/24 01:58 Dose: 5 mg Documented By: SAMANTHA Polyethylene Glycol (Polyethylene Glycol 3350 17 Gm Powd.Pack) 17 gm PO DAILY [facility] Last Admin: 06/30/24 09:40 Dose: 17 gm Documented By: NEENA Quetiapine Fumarate (Quetiapine Fumarate 25 Mg Tablet) 25 mg PO BEDTIME [facility] Last Admin: 06/30/24 21:36 Dose: 25 mg Documented By: SAMANTHA Senna (Sennosides 8.6 Mg Tablet) 17.2 mg PO BEDTIME [facility] Last Admin: 06/30/24 21:35 Dose: 17.2 mg Documented By: SAMANTHA Sodium Chloride (0.9 % Sodium Chloride Flush 3 Ml Syringe) 3 ml IVFLUSH QSHIFT [facility] Last Admin: 07/01/24 00:14 Dose: Not Given Documented By: SAMANTHA Non-Admin Reason: IV Running Thiamine HCl (Thiamine Hcl 100 Mg Tablet) 100 mg PO DAILY [facility] Last Admin: 06/30/24 09:39 Dose: 100 mg Documented By: NEENA Labs 07/01/24 05:27 07/01/24 05:27 Labs: Laboratory Results - last 24 hr 06/30/24 07/01/24 07:08 05:27 MCV 85.8 MCH 25.8 L MCHC 30.0 L RDW 18.3 H Plt Count 154 L MPV 9.6 Absolute Nucleated RBC 0.000 Nucleated RBC % (auto) 0.0 Anion Gap 13 Estim Creat Clear Calc 37.1 Estimated GFR 39 Random Glucose 88 Calcium 8.8 D Blood Type O Positive Antibody Screen NEGATIVE Crossmatch See Detail Assessment and Plan (1) Acute UTI: Status: Acute Plan 84M PMH pafib, hfref, htn, CKD III, GALLITO, prolonged hospitalizations at [facility] 02/2024 for aspiration pneumonia discharged to LTAC with tracheostomy and PEG, now at [facility], trache removed, eating by mouth, sent by [facility] for ESBL Acute urinary tract infection due to ESBL Klebsiella, with bacteremia IV meropenem, ID appreciated, will need 14 day total merem/ertapenem end jul 10, 2024 nephro eval for midline approval vs [place] unspecified dementia with acute delrium orienting strategies PRABHU on CKD 3 ?obstructive + hypovoelmic, cta/p with bilateral hydro desai, improving gu appreciated - persistent hydro despite desai acute on chronic anemia multifactorial chronic blood loss, inflammatory, dilutional holding eliquis, ppi, gi appreciated - conservative therapy for now, ?outpatient scope, transfused 1 unit prbc and hgb improved, monitor Paroxysmal atrial fibrillation eliquis on hold for possible bleed, amio hypothyroid synthroid Chronic systolic CHF euvolemic DVT prophylaxis - mechanical due to anemia DNR, not DNI reason for continued hospitalization: anemia Quality Stroke Does the patient have a stroke diagnosis?: No VTE Prior VTE?: No VTE Risk Level:: Medical - moderate - high VTE Device Contraindication: Treatment Not Indicated VTE Drug Contraindication: N/A - Med Ordered
--- NOTE | 2024-07-01 09:13 | PM.EVENT ---
Event Note Date of Service: 07/01/24 Event Note: Elderly man with Anant ANANT is resolving Not a good candidate for dialysis if need arises Given the overall health status, no absolute contraindication for a PICC line Full consult to follow Time Spent With Patient Time: Total time managing care of this patient today ____ minutes.
[2024-07-01] MEDS: Gabapentin 100 MG CAPSULE PO ×2 (09:14→19:50)
[2024-07-01] MEDS: Docusate Sodium 100 MG CAPSULE PO ×2 (09:14→19:49)
[2024-07-01] MEDS: Thiamine HCL 100 MG TABLET PO (09:14)
[2024-07-01] MEDS: Multivitamin TABLET 1 TAB PO (09:14)
[2024-07-01] MEDS: Ascorbic Acid 500 MG TABLET PO ×2 (09:14→19:49)
[2024-07-01] MEDS: Ferrous Sulfate 324 MG TABLET.DR PO ×2 (09:14→19:49)
[2024-07-01] MEDS: Amiodarone HCL 200 MG TABLET PO (09:14)
[2024-07-01] MEDS: polyethylene glycoL 3350 17 GM POWD.PACK PO (09:15)
[2024-07-01] MEDS: Nystatin Powder 15 GM BOTTLE 1 APPL TOPICAL (09:15)
[2024-07-01] MEDS: Finasteride 5 MG TABLET PO (09:15)
[2024-07-01] MEDS: amLODIPine Besylate 10 MG TABLET PO (09:15)
[2024-07-01] MEDS: Lidocaine 4 % Patch ADH..PATCH 1 PATCH TRANSDERMA (09:16)
--- NOTE | 2024-07-01 10:35 | MHC.CM.PN ---
pt per rounds pt not medically ready for dc possible dc tomorrow
--- NOTE | 2024-07-01 12:35 | P.CONNP_ITS ---
History of Present Illness Reason for Consult Consult date: 07/01/24 Reason for consult: Needs PICC line Chief Complaint Chief complaint: Uti History of Present Illness Narrative: 84M PMH pafib, hfref, htn, CKD III, GALILTO, prolonged hospitalizations at [facility] 02/2024 for aspiration pneumonia discharged to LTAC with tracheostomy and PEG, now at [place], trache removed, eating by mouth, sent by [place] for ESBL ecoli and klebsiella in urine culture, sensitive to IV meds only. Patient unclear why UA was checked. Denies dysuria, fever, urinary frequency. [facility] Past Medical History Medical History Delirium Altered mental status Sepsis Atherosclerotic cardiovascular disease PAF (paroxysmal atrial fibrillation) NSTEMI (non-ST elevated myocardial infarction) Chronic renal disease, stage 3, moderately decreased glomerular filtration rate (GFR) between 30-59 mL/min/1.73 square meter Chest pain Heart failure Thyroid disease GERD (gastroesophageal reflux disease) On anticoagulant therapy COVID-19 vaccine series completed Symptomatic cholelithiasis HTN (hypertension) Hyperlipidemia Atrial fibrillation Sleep apnea Elevated PSA Facet arthropathy, cervical BPH loc w urin obs/LUTS Family History Family History Unknown No problems noted. Family history: reviewed and not pertinent Surgical History Surgical History S/P laparoscopic cholecystectomy Hx of cataract extraction History of total replacement of both hip joints Hx of cystoscopy H/O colonoscopy History of surgery Social History Social History Household Members: Spouse Housing: House Are you a primary physician assistant primary care to a significant other at home: No Do you presently have visiting nurse or other home services: No Alcohol intake: never Comment: bilateral wrist restraints for airway/line safety Patient Tobacco Use Status: Never used Tobacco Advance Directives Date on File: 03/07/24 service: No Current occupational status: retired Meds Allergies Allergy/AdvReac Type Severity Reaction Status Date / Time ibuprofen [IBUPROFEN] Allergy Intermediate HIVES Verified 06/26/24 14:02 hydromorphone [From DILAUDID] AdvReac Intermediate ILEUS Verified 06/26/24 14:02 procaine [From Novocain] AdvReac Intermediate has no Verified 06/26/24 14:02 numbing effect-states monocain works narcotic pain meds AdvReac Intermediate does not Uncoded 06/26/24 14:02 relieve pain per patient Active Medications: Current Medications Acetaminophen (Acetaminophen 325 Mg Tablet) 650 mg PO Q6H PRN PRN Reason: Pain, Mild (Pain Scale 1-3), fever or headache Last Admin: 06/30/24 21:36 Dose: 650 mg Albuterol Sulfate (Albuterol Sulfate (0.083%) 2.5 Mg/3 Ml Vial.Neb) 2.5 mg INHALE Q4H PRN PRN Reason: Shortness Of Breath Or Wheezing Amiodarone HCl (Amiodarone Hcl 200 Mg Tablet) 200 mg PO DAILY [facility] Last Admin: 07/01/24 09:14 Dose: 200 mg Amlodipine Besylate (Amlodipine Besylate 10 Mg Tablet) 10 mg PO DAILY [facility]; Protocol Last Admin: 07/01/24 09:15 Dose: 10 mg Apixaban (Apixaban 2.5 Mg Tablet) 2.5 mg PO BID [facility] Last Admin: 06/29/24 19:57 Dose: 2.5 mg Ascorbic Acid (Ascorbic Acid 500 Mg Tablet) 500 mg PO BID [facility] Last Admin: 07/01/24 09:14 Dose: 500 mg Bisacodyl (Bisacodyl 10 Mg Supp.Rect) 10 mg NM DAILY PRN PRN Reason: Constipation Calcium Carbonate (Calcium Carbonate 750 Mg Tab.Chew) 750 mg PO Q4H PRN PRN Reason: Heartburn Docusate Sodium (Docusate Sodium 100 Mg Capsule) 100 mg PO BID [facility] Last Admin: 07/01/24 09:14 Dose: 100 mg Doxazosin Mesylate (Doxazosin Mesylate 2 Mg Tablet) 4 mg PO BEDTIME [facility]; Protocol Last Admin: 06/30/24 21:36 Dose: 4 mg Famotidine (Famotidine 20 Mg Tablet) 20 mg PO BEDTIME [facility] Last Admin: 06/30/24 21:36 Dose: 20 mg Ferrous Sulfate (Ferrous Sulfate 324 Mg Tablet.Dr) 324 mg PO BID [facility] Last Admin: 07/01/24 09:14 Dose: 324 mg Finasteride (Finasteride 5 Mg Tablet) 5 mg PO DAILY [facility] Last Admin: 07/01/24 09:15 Dose: 5 mg Gabapentin (Gabapentin 100 Mg Capsule) 100 mg PO BID [facility] Last Admin: 07/01/24 09:14 Dose: 100 mg Levothyroxine Sodium (Levothyroxine Sodium 100 Mcg Tablet) 100 mcg PO DAILY@0600 [facility] Last Admin: 07/01/24 05:35 Dose: 100 mcg Lidocaine (Lidocaine 4 % Patch Adh..Patch) 1 patch TRANSDERMA DAILY [facility] Last Admin: 07/01/24 09:16 Dose: 1 patch Magnesium Hydroxide (Milk Of Magnesia 30 Ml Oral.Susp) 30 ml PO DAILY PRN PRN Reason: Constipation Melatonin (Melatonin 3 Mg Tablet) 6 mg PO BEDTIME PRN PRN Reason: Insomnia Last Admin: 06/30/24 21:35 Dose: 6 mg Meropenem (Meropenem 500 Mg Vial) 500 mg IVPUSH Q12H [facility] Last Admin: 07/01/24 05:36 Dose: 500 mg Multivitamins/Vitamin C (Multivitamin Tablet) 1 tab PO DAILY [facility] Last Admin: 07/01/24 09:14 Dose: 1 tab Nystatin (Nystatin Powder 15 Gm Bottle) 1 appl TOPICAL DAILY [facility]; Protocol Last Admin: 07/01/24 09:15 Dose: 1 appl Omeprazole (Omeprazole 20 Mg Capsule.Dr) 20 mg PO BID@0630,1630 [facility] Last Admin: 07/01/24 05:35 Dose: 20 mg Oxycodone HCl (Oxycodone Hcl Immed Release 5 Mg Tablet) 5 mg PO Q6H PRN PRN Reason: Pain, Severe (Pain Scale 7-10) Last Admin: 07/01/24 01:58 Dose: 5 mg Polyethylene Glycol (Polyethylene Glycol 3350 17 Gm Powd.Pack) 17 gm PO DAILY [facility] Last Admin: 07/01/24 09:15 Dose: 17 gm Quetiapine Fumarate (Quetiapine Fumarate 25 Mg Tablet) 25 mg PO BEDTIME [facility] Last Admin: 06/30/24 21:36 Dose: 25 mg Senna (Sennosides 8.6 Mg Tablet) 17.2 mg PO BEDTIME [facility] Last Admin: 06/30/24 21:35 Dose: 17.2 mg Sodium Chloride (0.9 % Sodium Chloride Flush 3 Ml Syringe) [facility] Last Admin: 07/01/24 09:15 Dose: Not Given Thiamine HCl (Thiamine Hcl 100 Mg Tablet) 100 mg PO DAILY [facility] Last Admin: 07/01/24 09:14 Dose: 100 mg Home Medications ?Medication ?Instructions ?Recorded ?Confirmed ?Last Taken ?Type Lactobacillus acidophilus 1 1,000 mmu cells PO BID 06/26/24 06/26/24 Unknown History billion cell tablet acetaminophen 325 mg tablet 975 mg PO Q6H PRN Pain/Fever 06/26/24 06/26/24 Unknown History albuterol sulfate 2.5 mg/3 mL 2.5 mg inhalation Q4H PRN 06/26/24 06/26/24 Unknown History (0.083 %) solution for nebulization Shortness Of Breath Or Wheezing amiodarone 200 mg tablet 200 mg PO DAILY 06/26/24 06/26/24 Unknown History amlodipine 10 mg tablet 10 mg PO DAILY 06/26/24 06/26/24 Unknown History apixaban 5 mg tablet (Eliquis) 2.5 mg PO BID 06/26/24 06/26/24 Unknown History ascorbic acid (vitamin C) 500 mg 500 mg PO BID 06/26/24 06/26/24 Unknown History tablet bisacodyl 10 mg rectal suppository 10 mg NM DAILY PRN Constipation 06/26/24 06/26/24 Unknown History docusate sodium 100 mg tablet 100 mg PO BID 06/26/24 06/26/24 Unknown History famotidine 20 mg tablet 20 mg PO BEDTIME 06/26/24 06/26/24 Unknown History ferrous sulfate 325 mg (65 mg 325 mg PO BID 06/26/24 06/26/24 Unknown History iron) tablet gabapentin 100 mg capsule 100 mg PO BID 06/26/24 06/26/24 Unknown History levothyroxine 100 mcg tablet 100 mcg PO DAILY@0600 06/26/24 06/26/24 Unknown History lidocaine 5 % topical patch 1 patch topical DAILY 06/26/24 06/26/24 Unknown History (Lidoderm) magnesium hydroxide 400 mg/5 mL 30 ml PO DAILY PRN Constipation 06/26/24 06/26/24 Unknown History oral suspension (Milk of Magnesia) melatonin 5 mg tablet 10 mg PO BEDTIME 06/26/24 06/26/24 Unknown History multivitamin 1 tab PO DAILY 06/26/24 06/26/24 Unknown History nystatin 100,000 unit/gram topical 1 appl topical DAILY 06/26/24 06/26/24 Unknown History powder polyvinyl alcohol 1.4 % eye drops 1 drp ophthalmic (eye) Q6H PRN Dry 06/26/24 06/26/24 Unknown History Eyes quetiapine 25 mg tablet 25 mg PO BEDTIME 06/26/24 06/26/24 Unknown History sennosides 8.6 mg tablet (senna) 17.2 mg PO BEDTIME 06/26/24 06/26/24 Unknown History sodium phosphates oral solution 15 ml PO Q2H PRN Constipation 06/26/24 06/26/24 Unknown History thiamine HCl (vitamin B1) 100 mg 100 mg PO DAILY 06/26/24 06/26/24 Unknown History tablet (Vitamin B-1) Physical Exam Vital Signs: Last Vital Signs Temp 96.9 F 07/01/24 07:59 Pulse 72 07/01/24 07:59 Resp 18 07/01/24 07:59 BP 141/65 H 07/01/24 07:59 Pulse Ox 95 07/01/24 07:59 O2 Del Method Room Air 07/01/24 07:59 O2 Flow Rate 2 06/28/24 19:22 BMI result Body Mass Index 32.4 Ill-appearing Neck is supple. Mucosa dry Lungs bilateral scattered rhonchi. Heart S1-S2 heard no gallop. Abdomen soft. Extremities no edema. No involuntary movements. No myoclonus. Results Lab Results 07/01/24 05:27 07/01/24 05:27 Lab results: Chemistry 06/29/24 06/30/24 07/01/24 05:28 05:50 05:27 Sodium 146 H 144 143 Potassium 3.8 4.2 3.9 Carbon Dioxide 19 L 19 L 18 L BUN 58 H 50 H 39 H Creatinine 2.67 H 1.99 H 1.67 H Calcium 8.9 8.0 L D 8.8 D Hematology 06/29/24 06/30/24 07/01/24 05:28 05:50 05:27 WBC 8.5 6.9 6.6 Hgb 7.5 L 6.7 L* 7.6 L Plt Count 186 168 154 L Assessment and Plan (1) PRABHU (acute kidney injury): Status: Acute Plan Elderly man with acute kidney injury superimposed on CKD. Acute kidney injury due to a combination of obstructive uropathy and severe volume depletion. Recommendation Keep Jamison Intake more than output IV hydration as needed. Renal function is improving. No indication for dialysis. Given the comorbid conditions he would not be a candidate for dialysis if the need arises. Therefore there is no absolute contraindication to insert a PICC line if needed. Continue supportive care She will follow as needed Procedures Date of Service Date of Service: 07/01/24
--- NOTE | 2024-07-01 12:45 | PC.NURSE ---
pt has desai in place, per Dr. Colon voiding trial in two weeks in office.
--- NOTE | 2024-07-01 13:53 | MHC.CLN ---
F/U PT WITH INCREASED NUTRITION RISK R/T PRESSURE INJURY, UNSTAGEABLE AREA TO COCCYX. REGULAR DIET-APPROPRIATE INTAKE APPEARS TO BE POOR, USUALLY 0-25%. CHANGING SUPPLEMENT TO INCREASE KCALS. ENSURE TID PROVIDES 1050 KCALS, 60 G PROTEIN. MONITOR PO INTAKE AND ENCOURAGE SUPPLEMENTS.
[2024-07-01 15:40] VITALS: BP 98/52; PULSE 80; RESP 18; TEMP 36.4; O2SAT 94
--- NOTE | 2024-07-01 16:58 | HO.MIDLINE_ITS ---
Midline Insertion MIDLINE INSERTION Diagnosis: ESBL Klebsiella Indication: snf ABT Pertinent Labs: Reviewed Technique: Using sterile technique including cap and mask, glove and drape, the right arm was prepped and draped in the usual sterile fashion of full barrier technique with CHG. Using ultrasound guidance, right cephalic vein access was obtained . 4FR x 20cm single lumen nonPASV PowerMidline trimmed to 9cm was positioned. The procedure was performed in [facility]. Ultrasound was used to document vein patency and for needle entry. A formal ultrasound picture was recorded. [employer] Project Manager has released the line for use and it is currently dressed with a StatLock, Tegaderm, and CHG disc. Verification has been performed for blood return and line patency. Arm Circumference: 33cm Equipment: BARD Powermidline Catheter Catheter Type: 4FR x 20cm non PASV single lumen catheter Lot #: [id number]
[2024-07-01] MEDS: 0.9 % Sodium Chloride Flush 3 ML SYRINGE IVFLUSH ×2 (18:05→19:50)
[2024-07-01 19:38] VITALS: BP 141/64; PULSE 71; RESP 18; TEMP 36.1; O2SAT 93
[2024-07-01] MEDS: Famotidine 20 MG TABLET PO (19:49)
[2024-07-01] MEDS: QUEtiapine Fumarate 25 MG TABLET PO (19:50)
[2024-07-01] MEDS: Sennosides 8.6 MG TABLET 17.2 MG PO (19:50)
[2024-07-01] MEDS: Doxazosin Mesylate 2 MG TABLET 4 MG PO (19:50)
[2024-07-01] MEDS: Heparin Sodium,Porcine Flush 50 UNITS/5 ML SYRINGE IVFLUSH (23:15)
[2024-07-02 03:33] VITALS: BP 136/62; PULSE 73; RESP 18; TEMP 36.3; O2SAT 96
[2024-07-02] MEDS: Omeprazole 20 MG CAPSULE.DR PO ×2 (05:12→15:25)
[2024-07-02] MEDS: Levothyroxine Sodium 100 MCG TABLET PO (05:12)
[2024-07-02] MEDS: Meropenem 500 MG VIAL IVPUSH ×2 (05:12→16:15)
[2024-07-02 06:02] LABS: Hemoglobin 8.4 g/dl (14.0-18.0); Mean Corpuscular HGB Conc 31.1 g/dl (31.0-36.0); Mean Corpuscular Hemoglobin 26.7 pg (27.0-33.0); Mean Corpuscular Volume 85.7 fL (80.0-98.0); Mean Platelet Volume 9.2 fL (9.4-12.4); Platelet Count 173 X10*3/uL (160-400); Red Blood Count 3.15 X10*6/uL (4.60-5.80); Red Cell Distribution Width 18.6 % (11.0-16.0)
[2024-07-02 06:23] LABS: Alanine Aminotransferase 20 U/L (0-40); Albumin Level 2.2 g/dL (3.5-5.0); Alkaline Phosphatase 276 U/L (39-117); Anion Gap 14 (12-20); Aspartate Amino Transferase 45 U/L (5-37); Bilirubin Direct 0.2 mg/dL (0.0-0.5); Bilirubin Total 0.3 mg/dL (0.0-1.0); Blood Urea Nitrogen 31 mg/dL (9-16); Calcium 9.7 mg/dL (8.4-10.2); Carbon Dioxide 19 mmol/L (22-29); Chloride 117 mmol/L (96-108); Creatinine Clr Calc Pharmacy 38.2; Estimated Glomerular Filt Rate 41; Glucose Random 83 mg/dL (60-115); Potassium 4.3 mmol/L (3.3-5.1); Sodium 146 mmol/L (135-145); Total Protein 6.5 g/dL (6.5-8.0)
[2024-07-02 07:55] VITALS: BP 108/57; PULSE 76; RESP 12; TEMP 37; O2SAT 94
[2024-07-02] MEDS: Lidocaine 4 % Patch ADH..PATCH 1 PATCH TRANSDERMA (08:04)
[2024-07-02] MEDS: polyethylene glycoL 3350 17 GM POWD.PACK PO (08:04)
[2024-07-02] MEDS: Heparin Sodium,Porcine Flush 50 UNITS/5 ML SYRINGE IVFLUSH ×3 (08:04→23:22)
[2024-07-02] MEDS: Thiamine HCL 100 MG TABLET PO (08:05)
[2024-07-02] MEDS: Finasteride 5 MG TABLET PO (08:05)
[2024-07-02] MEDS: Multivitamin TABLET 1 TAB PO (08:05)
[2024-07-02] MEDS: Amiodarone HCL 200 MG TABLET PO (08:05)
[2024-07-02] MEDS: Docusate Sodium 100 MG CAPSULE PO ×2 (08:06→19:56)
[2024-07-02] MEDS: Ascorbic Acid 500 MG TABLET PO ×2 (08:06→19:56)
[2024-07-02] MEDS: Nystatin Powder 15 GM BOTTLE 1 APPL TOPICAL (08:06)
[2024-07-02] MEDS: amLODIPine Besylate 10 MG TABLET PO (08:06)
[2024-07-02] MEDS: Ferrous Sulfate 324 MG TABLET.DR PO ×2 (08:06→19:56)
[2024-07-02] MEDS: Gabapentin 100 MG CAPSULE PO ×2 (08:06→19:56)
[2024-07-02] MEDS: 0.9 % Sodium Chloride Flush 3 ML SYRINGE IVFLUSH ×3 (08:28→19:56)
--- NOTE | 2024-07-02 08:37 | HO.PM.IMPN ---
Subjective Subjective Date of Service: 07/02/24 Interval History: now more alert and oriented, with good insight Physical Exam Vital Signs: Vital Signs: Last Vital Signs Temp 98.6 F 07/02/24 07:55 Pulse 76 07/02/24 07:55 Resp 12 07/02/24 07:55 BP 108/57 L 07/02/24 07:55 Pulse Ox 94 07/02/24 07:55 O2 Del Method Room Air 07/02/24 07:55 O2 Flow Rate 2 06/28/24 19:22 BMI result Body Mass Index 32.4 Ill-appearing Neck is supple. Mucosa dry less confused, shows good insight today Heart S1-S2 heard no gallop. Abdomen soft. Extremities no edema. No involuntary movements. No myoclonus. Objective Data Active Medications Acetaminophen (Acetaminophen 325 Mg Tablet) 650 mg PO Q6H PRN PRN Reason: Pain, Mild (Pain Scale 1-3), fever or headache Last Admin: 06/30/24 21:36 Dose: 650 mg Documented By: SAMANTHA Albuterol Sulfate (Albuterol Sulfate (0.083%) 2.5 Mg/3 Ml Vial.Neb) 2.5 mg INHALE Q4H PRN PRN Reason: Shortness Of Breath Or Wheezing Amiodarone HCl (Amiodarone Hcl 200 Mg Tablet) 200 mg PO DAILY [facility] Last Admin: 07/02/24 08:05 Dose: 200 mg Documented By: LEONARDO Amlodipine Besylate (Amlodipine Besylate 10 Mg Tablet) 10 mg PO DAILY [facility]; Protocol Last Admin: 07/02/24 08:06 Dose: 10 mg Documented By: LEONARDO Apixaban (Apixaban 2.5 Mg Tablet) 2.5 mg PO BID [facility] Last Admin: 06/29/24 19:57 Dose: 2.5 mg Documented By: DAVID Ascorbic Acid (Ascorbic Acid 500 Mg Tablet) 500 mg PO BID [facility] Last Admin: 07/02/24 08:06 Dose: 500 mg Documented By: LEONARDO Bisacodyl (Bisacodyl 10 Mg Supp.Rect) 10 mg [place] DAILY PRN PRN Reason: Constipation Calcium Carbonate (Calcium Carbonate 750 Mg Tab.Chew) 750 mg PO Q4H PRN PRN Reason: Heartburn Docusate Sodium (Docusate Sodium 100 Mg Capsule) 100 mg PO BID [facility] Last Admin: 07/02/24 08:06 Dose: 100 mg Documented By: LEONARDO Doxazosin Mesylate (Doxazosin Mesylate 2 Mg Tablet) 4 mg PO BEDTIME [facility]; Protocol Last Admin: 07/01/24 19:50 Dose: 4 mg Documented By: DAVID Famotidine (Famotidine 20 Mg Tablet) 20 mg PO BEDTIME [facility] Last Admin: 07/01/24 19:49 Dose: 20 mg Documented By: DAVID Ferrous Sulfate (Ferrous Sulfate 324 Mg Tablet.Dr) 324 mg PO BID [facility] Last Admin: 07/02/24 08:06 Dose: 324 mg Documented By: LEONARDO Finasteride (Finasteride 5 Mg Tablet) 5 mg PO DAILY [facility] Last Admin: 07/02/24 08:05 Dose: 5 mg Documented By: LEONARDO Gabapentin (Gabapentin 100 Mg Capsule) 100 mg PO BID [facility] Last Admin: 07/02/24 08:06 Dose: 100 mg Documented By: LEONARDO Heparin Sodium (Porcine) (Heparin Sodium,Porcine Flush 50 Units/5 Ml Syringe) 50 units IVFLUSH QSHIFT [facility] Last Admin: 07/02/24 08:04 Dose: 50 units Documented By: LEONARDO Levothyroxine Sodium (Levothyroxine Sodium 100 Mcg Tablet) 100 mcg PO DAILY@0600 [facility] Last Admin: 07/02/24 05:12 Dose: 100 mcg Documented By: DAVID Lidocaine (Lidocaine 4 % Patch Adh..Patch) 1 patch TRANSDERMA DAILY [facility] Last Admin: 07/02/24 08:04 Dose: 1 patch Documented By: LEONARDO Magnesium Hydroxide (Milk Of Magnesia 30 Ml Oral.Susp) 30 ml PO DAILY PRN PRN Reason: Constipation Melatonin (Melatonin 3 Mg Tablet) 6 mg PO BEDTIME PRN PRN Reason: Insomnia Last Admin: 06/30/24 21:35 Dose: 6 mg Documented By: SAMANTHA Meropenem (Meropenem 500 Mg Vial) 500 mg IVPUSH Q12H [facility] Last Admin: 07/02/24 05:12 Dose: 500 mg Documented By: DAVID Multivitamins/Vitamin C (Multivitamin Tablet) 1 tab PO DAILY [facility] Last Admin: 07/02/24 08:05 Dose: 1 tab Documented By: LEONARDO Nystatin (Nystatin Powder 15 Gm Bottle) 1 appl TOPICAL DAILY [facility]; Protocol Last Admin: 07/02/24 08:06 Dose: 1 appl Documented By: LEONARDO Omeprazole (Omeprazole 20 Mg Capsule.) 20 mg PO BID@0630,1630 [facility] Last Admin: 07/02/24 05:12 Dose: 20 mg Documented By: DAVID Oxycodone HCl (Oxycodone Hcl Immed Release 5 Mg Tablet) 5 mg PO Q6H PRN PRN Reason: Pain, Severe (Pain Scale 7-10) Last Admin: 07/01/24 23:30 Dose: 5 mg Documented By: DAVID Polyethylene Glycol (Polyethylene Glycol 3350 17 Gm Powd.Pack) 17 gm PO DAILY [facility] Last Admin: 07/02/24 08:04 Dose: 17 gm Documented By: LEONARDO Quetiapine Fumarate (Quetiapine Fumarate 25 Mg Tablet) 25 mg PO BEDTIME [facility] Last Admin: 07/01/24 19:50 Dose: 25 mg Documented By: DAVID Senna (Sennosides 8.6 Mg Tablet) 17.2 mg PO BEDTIME [facility] Last Admin: 07/01/24 19:50 Dose: 17.2 mg Documented By: DAVID Sodium Chloride (0.9 % Sodium Chloride Flush 3 Ml Syringe) 3 ml IVFLUSH QSHIFT [facility] Last Admin: 07/02/24 08:28 Dose: 3 ml Documented By: LEONARDO Thiamine HCl (Thiamine Hcl 100 Mg Tablet) 100 mg PO DAILY [facility] Last Admin: 07/02/24 08:05 Dose: 100 mg Documented By: LEONARDO Labs 07/02/24 05:29 07/02/24 05:29 Labs: Laboratory Results - last 24 hr 07/02/24 05:29 MCV 85.7 MCH 26.7 L MCHC 31.1 RDW 18.6 H Plt Count 173 MPV 9.2 L Absolute Nucleated RBC 0.000 Nucleated RBC % (auto) 0.0 Anion Gap 14 Estim Creat Clear Calc 38.2 Estimated GFR 41 Random Glucose 83 Calcium 9.7 D Total Bilirubin 0.3 Direct Bilirubin 0.2 AST 45 H ALT 20 Alkaline Phosphatase 276 H Total Protein 6.5 Albumin 2.2 L Microbiology Microbiology Results: Microbiology 06/26/24 14:49 Blood Culture - Final Blood - Venous No growth after 5 days. Assessment and Plan (1) Acute UTI: Status: Acute Plan 84M PMH pafib, hfref, htn, CKD III, [place], prolonged hospitalizations at [facility] 02/2024 for aspiration pneumonia discharged to LTAC with tracheostomy and PEG, now at [place], trache removed, eating by mouth, sent by [place] for ESBL Acute urinary tract infection due to ESBL Klebsiella, with bacteremia IV meropenem, ID appreciated, will need 14 day total merem/ertapenem end jul 10, 2024 s/p midline placement 07/01/24 unspecified dementia with acute delrium orienting strategies, improved today PRABHU on CKD 3 ?obstructive + hypovoelmic, cta/p with bilateral hydro desai, improving gu appreciated - persistent hydro despite desai acute on chronic anemia multifactorial chronic blood loss, inflammatory, dilutional holding eliquis, ppi, gi appreciated - conservative therapy for now, ?outpatient scope, transfused 1 unit prbc and hgb improved, monitor Paroxysmal atrial fibrillation eliquis on hold for possible bleed, amio hypothyroid synthroid Chronic systolic CHF euvolemic DVT prophylaxis - mechanical due to anemia DNR, not DNI reason for continued hospitalization: hydro Quality Stroke Does the patient have a stroke diagnosis?: No VTE Prior VTE?: No VTE Risk Level:: Medical - moderate - high VTE Device Contraindication: Treatment Not Indicated VTE Drug Contraindication: N/A - Med Ordered
[2024-07-02] MEDS: oxyCODONE HCl Immed Release 5 MG TABLET PO (10:00)
--- NOTE | 2024-07-02 10:45 | MHC.CM.PN ---
Addendum entered by Kelly Dang 07/02/24 12:03: [facility] NOW NOT OFFERING A BED FOR THIS PATIENT. CM CALLED PTS DAUGHTER BACK AND INFORMED HER NEW REFERRALS WOULD BE MADE SHE REQUESTED THEY BE SENT TO THE [facility] REFERRALS OUT Addendum entered by Kelly Dang 07/02/24 11:18: LITO SPOKE TO PTS DAUGHTER, MICHELLE [phone] WHO REPORTS PT WAS HERE IN FEBRUARY AND THEN SENT TO [facility] WHERE HE WAS UNTIL ABOUT 3 WEEKS AGO WHEN HE WAS SENT TO [facility] SHE SAYS PRIOR TO THAT, PT WAS FULLY INDEPENDENT AND LIVING WITH HIS SHE IS AWARE PT MAY RETURN TO [facility] TODAY VIA BLS Original Note: PER MD ROUNDS, PT MAY BE MEDICALLY CLEARED TO DC TODAY [facility] REQUESTING AN UPDATED PT EVAL TO DETERMINE SKILL THEY WERE UPDATED WITH IV ABX INFO AND NEW F/C PT EVAL ATTEMPTED, PT OFF UNIT
[2024-07-02 11:14] VITALS: BP 108/57; PULSE 76; O2SAT 94
--- NOTE | 2024-07-02 12:34 | MHC.CLN ---
F/U PT WITH INCREASED NUTRITION RISK R/T PRESSURE INJURY, UNSTAGEABLE AREA TO COCCYX. REGULAR DIET-APPROPRIATE INTAKE APPEARS TO BE POOR, USUALLY 0-25%. ENSURE TID PROVIDES 1050 KCALS, 60 G PROTEIN. SUPPLEMENT TO PROMOTE NUTRITIONAL INTAKE AND WOUND HEALING. MONITOR PO INTAKE AND ENCOURAGE SUPPLEMENTS.
--- NOTE | 2024-07-02 12:45 | PM.DS ---
DS: Providers Provider Date of Service: 07/02/24 Date of admission: 06/26/24 16:12 Date of discharge: 07/02/24 Primary care physician: Zak Zuluaga MD Consults: 06/26/24 16:20 Consult to Infectious Diseases Routine Consulting Provider: [facility] Reason for consultation: esbl in urine 06/26/24 20:34 Consult to Wound Care Routine Reason for consultation: stage II to coccyx, redness to bilateral toes. 06/27/24 06:55 Consult to Urology Routine Consulting Provider: [facility] Reason for consultation: bialteral hydro 06/30/24 07:20 Consult to Gastroenterology Routine Consulting Provider: Franco Arzola Reason for consultation: iron deficiency anemia, on eliquis 07/01/24 02:14 Consult to Wound Care Routine Reason for consultation: stage II to coccyx, redness to bilateral toes. 07/01/24 08:17 Consult to Nephrology Routine Consulting Provider: [facility] Reason for consultation: midline vs ragsdale in patient with CKD DS: Diagnosis Discharge Diagnosis (1) Acute UTI: Status: Acute DS: Summary Hospital Course Hospital Course: from initial hpi: 84M PMH pafib, hfref, htn, CKD III, GALLITO, prolonged hospitalizations at [facility] 02/2024 for aspiration pneumonia discharged to LTAC with tracheostomy and PEG, now at [facility], trache removed, eating by mouth, sent by [facility] for ESBL ecoli and klebsiella in urine culture, sensitive to IV meds only. Patient unclear why UA was checked. Denies dysuria, fever, urinary frequency. hospital course: Patient was admitted for acute urinary tract infection due to ESBL Klebsiella complicated by bacteremia. He was treated with IV meropenem, was seen by infectious disease who recommended 14 day total, midline was placed and will complete antibiotic course with ertapenem at [facility] on 07/10/2024. For unspecified dementia complicated by acute delirium patient's mentation slowly improved throughout hospitalization and he is now back to baseline, he is oriented x3 and has good insight into his medical condition, though still occasionally gets confused. For acute kidney injury on CKD 3, this was likely combination of obstruction and hypovolemia, CT abdomen showed bilateral hydronephrosis, Jamison was placed and was seen by Urology who recommended initiating Flomax and Proscar. Repeat imaging after Jamison did show residual hydronephrosis, likely this is chronic but she will continue with Jamison for now and follow up with Urology as outpatient. Patient was noted to have acute on chronic anemia likely multifactorial due to chronic blood loss, inflammatory, dilutional. Nellquis has been held for about 1 week was initially on PPI, seen by Gastroenterology recommended conservative therapy and outpatient follow-up for possible EGD and colonoscopy. He was transfused 1 unit of PRBC and hemoglobin improved appropriately. For paroxysmal atrial fibrillation Eliquis is on hold as mentioned, was continued on amiodarone. For hypothyroidism was continued on levothyroxine. For chronic systolic CHF patient remained stable. Patient is feeling better and will be discharged to [facility]. Time Attestation Discharge Coordination Time (in mins): 37 Quality: Safe Use of Opioids Does Pt have an Active Cancer Diagnosis on the Problem List?: No Quality: Stroke Does the patient have a stroke diagnosis?: No Physical Exam Vital Signs: Vital Signs: Last Vital Signs Temp 98.6 F 07/02/24 07:55 Pulse 76 07/02/24 11:14 Resp 12 07/02/24 07:55 BP 108/57 L 07/02/24 11:14 Pulse Ox 94 07/02/24 11:14 O2 Del Method Room Air 07/02/24 07:55 O2 Flow Rate 2 06/28/24 19:22 BMI result Body Mass Index 32.4 lethargic, oriented times 3, no acute distress, abd soft, non tender DS: Data Data Completed and Pending Completed studies during hospitalization [Text1]: Procedures Assistance with Respiratory Ventilation, Less than 24 Consecutive Hours, Continuous Positive Airway Pressure (07/07/22) Bypass Trachea to Cutaneous with Tracheostomy Device, Open Approach (02/09/24) Dilation of Left Ureter with Intraluminal Device, Via Natural or Artificial Opening Endoscopic (07/07/22) Drainage of Left Main Bronchus, Via Natural or Artificial Opening Endoscopic (02/09/24) Drainage of Right Main Bronchus, Via Natural or Artificial Opening Endoscopic (02/09/24) Fluoroscopy of Left Kidney, Ureter and Bladder using Low Osmolar Contrast (07/07/22) Insertion of Endotracheal Airway into Trachea, Via Natural or Artificial Opening (02/09/24) Insertion of Feeding Device into Stomach, Percutaneous Approach (02/09/24) Insertion of Infusion Device into Right Atrium, Percutaneous Approach (02/09/24) Insertion of Infusion Device into Upper Vein, Percutaneous Approach (02/09/24) Removal of Infusion Device from Upper Vein, External Approach (02/09/24) Repair Neck, Stoma, External Approach (02/09/24) Respiratory Ventilation, 24-96 Consecutive Hours (02/09/24) Respiratory Ventilation, Greater than 96 Consecutive Hours (02/09/24) Pentecostal of Cardiac Rhythm, Single (07/07/22) Ultrasonography of Superior Vena Cava, Guidance (02/09/24) Labs on day of discharge: Laboratory Results - last 24 hr 07/02/24 05:29 WBC 7.0 RBC 3.15 L Hgb 8.4 L Hct 27.0 L MCV 85.7 MCH 26.7 L MCHC 31.1 RDW 18.6 H Plt Count 173 MPV 9.2 L Absolute Nucleated RBC 0.000 Nucleated RBC % (auto) 0.0 Sodium 146 H Potassium 4.3 Chloride 117 H Carbon Dioxide 19 L Anion Gap 14 BUN 31 H Creatinine 1.62 H Estim Creat Clear Calc 38.2 Estimated GFR 41 Random Glucose 83 Calcium 9.7 D Total Bilirubin 0.3 Direct Bilirubin 0.2 AST 45 H ALT 20 Alkaline Phosphatase 276 H Total Protein 6.5 Albumin 2.2 L Discharge Plan Discharge Patient Disposition: er [facility] Discharge Diagnosis: baltazar, bilateral hydronephrosis, ESBL uti and bacteremia, iron deficiency anemia Referrals: Tr Colon MD [Physician] - 1 Week Zak Zuluaga MD [Primary Care Provider] - 1 Week Discharge Medications: New finasteride 5 mg Tablet 5 mg PO DAILY Qty: 0 0RF omeprazole 20 mg Capsule,Delayed Release(Dr/Ec) 20 mg PO BID@0630,1630 Qty: 0 0RF ertapenem 1 gram recon soln 1 g IM DAILY Qty: 10 0RF Rx Instructions: end jul 10 2024 doxazosin 2 mg Tablet 4 mg PO BEDTIME Qty: 0 0RF Protocol: Hold for SBP< HOLD for SBP < : 90 Continued polyethylene glycol 3350 17 gram Powder In Packet 17 g PO DAILY Qty: 30 0RF Rx Instructions: Hold for loose stool. multivitamin Tablet 1 tab PO DAILY quetiapine 25 mg Tablet 25 mg PO BEDTIME sennosides [senna] 8.6 mg Tablet 17.2 mg PO BEDTIME albuterol sulfate 2.5 mg /3 mL (0.083 %) Solution For Nebulization 2.5 mg INHALATION Q4H PRN (Reason: Shortness Of Breath Or Wheezing) polyvinyl alcohol [Artificial Tears Plus] 1.4 % Drops 1 drp OPHTHALMIC (EYE) Q6H PRN (Reason: Dry Eyes) thiamine HCl (vitamin B1) [Vitamin B-1] 100 mg Tablet 100 mg PO DAILY levothyroxine 100 mcg Tablet 100 mcg PO DAILY@0600 famotidine 20 mg Tablet 20 mg PO BEDTIME magnesium hydroxide [Milk of Magnesia] 400 mg/5 mL Suspension 30 ml PO DAILY PRN (Reason: Constipation) Rx Instructions: If no BM in 3 days. ascorbic acid (vitamin C) 500 mg Tablet 500 mg PO BID amlodipine 10 mg Tablet 10 mg PO DAILY bisacodyl 10 mg Suppository 10 mg VT DAILY PRN (Reason: Constipation) Rx Instructions: If MoM not effective. ferrous sulfate 325 mg (65 mg iron) Tablet 325 mg PO BID lidocaine [Lidoderm] 5 % Adhesive Patch,Medicated 1 patch TOPICAL DAILY Rx Instructions: Apply to left shoulder in AM, take off at bedtime. gabapentin 100 mg Capsule 100 mg PO BID Saline Laxative Solution 15 ml PO Q2H PRN (Reason: Constipation) Rx Instructions: for 3 doses docusate sodium 100 mg Tablet 100 mg PO BID Lactobacillus acidophilus 1 billion cell Tablet 1,000 mmu cells PO BID melatonin 5 mg Tablet 10 mg PO BEDTIME acetaminophen 325 mg tablet 975 mg PO Q6H PRN (Reason: Pain/Fever) amiodarone 200 mg tablet 200 mg PO DAILY nystatin 100,000 unit/gram Powder 1 appl TOPICAL DAILY Rx Instructions: Apply to Groin. Held Eliquis 5 mg Tablet 2.5 mg PO BID Hold Instructions: Resume on 07/07/24. Diet: Advance to usual diet Activity on Discharge: As tolerated Stand Alone Forms: Patient Portal Discharge page Print Language: Bengali Care Plan Goals: recovery Health Concerns: Urinary retention, ESBL bacteremia, anemia, acute kidney injury Plan of Treatment: Continue ertapenem until 07/10/2024, continue Jamison catheter and Flomax and Proscar and follow up with Urology, continue PPI, hold Eliquis for 1 week, follow up with Gastroenterology Assessment: see above
[2024-07-02 15:58] VITALS: BP 106/53; PULSE 67; RESP 12; TEMP 37; O2SAT 94
[2024-07-02 19:45] VITALS: BP 116/58; PULSE 83; RESP 18; TEMP 36.2; O2SAT 92
[2024-07-02] MEDS: Doxazosin Mesylate 2 MG TABLET 4 MG PO (19:55)
[2024-07-02] MEDS: Sennosides 8.6 MG TABLET 17.2 MG PO (19:56)
[2024-07-02] MEDS: Famotidine 20 MG TABLET PO (19:56)
[2024-07-02] MEDS: QUEtiapine Fumarate 25 MG TABLET PO (19:56)
[2024-07-03 03:49] VITALS: BP 106/59; PULSE 88; RESP 18; TEMP 36.3; O2SAT 100
[2024-07-03] MEDS: Levothyroxine Sodium 100 MCG TABLET PO (05:04)
[2024-07-03] MEDS: Omeprazole 20 MG CAPSULE.DR PO ×2 (05:04→15:03)
[2024-07-03] MEDS: Meropenem 500 MG VIAL IVPUSH ×2 (05:04→16:09)
[2024-07-03 07:27] VITALS: BP 108/55; PULSE 80; RESP 16; TEMP 36.8; O2SAT 93
[2024-07-03] MEDS: Ascorbic Acid 500 MG TABLET PO ×2 (08:17→19:43)
[2024-07-03] MEDS: Gabapentin 100 MG CAPSULE PO ×2 (08:17→19:42)
[2024-07-03] MEDS: Multivitamin TABLET 1 TAB PO (08:17)
[2024-07-03] MEDS: Ferrous Sulfate 324 MG TABLET.DR PO ×2 (08:17→19:42)
[2024-07-03] MEDS: Docusate Sodium 100 MG CAPSULE PO ×2 (08:17→19:44)
[2024-07-03] MEDS: Thiamine HCL 100 MG TABLET PO (08:17)
[2024-07-03] MEDS: amLODIPine Besylate 10 MG TABLET PO (08:17)
[2024-07-03] MEDS: Amiodarone HCL 200 MG TABLET PO (08:17)
[2024-07-03] MEDS: Finasteride 5 MG TABLET PO (08:18)
[2024-07-03] MEDS: 0.9 % Sodium Chloride Flush 3 ML SYRINGE IVFLUSH ×2 (08:18→15:03)
[2024-07-03] MEDS: polyethylene glycoL 3350 17 GM POWD.PACK PO (08:18)
[2024-07-03] MEDS: Heparin Sodium,Porcine Flush 50 UNITS/5 ML SYRINGE IVFLUSH ×2 (08:18→15:04)
[2024-07-03] MEDS: Lidocaine 4 % Patch ADH..PATCH 1 PATCH TRANSDERMA (08:19)
[2024-07-03] MEDS: Nystatin Powder 15 GM BOTTLE 1 APPL TOPICAL (08:21)
[2024-07-03] MEDS: oxyCODONE HCl Immed Release 5 MG TABLET PO ×2 (08:32→15:19)
--- NOTE | 2024-07-03 10:13 | PC.NURSE ---
Midline leaking ,Dr. Cortez made aware
--- NOTE | 2024-07-03 11:35 | HO.PM.IMPN ---
Subjective Subjective Date of Service: 07/03/24 Interval History: seen and evaluated this morning confused and complaining of right knee pain no other events overnight Review of Systems Review of Systems: Yes all other systems are reviewed and are negative Physical Exam Vital Signs: Vital Signs: Last Vital Signs Temp 98.2 F 07/03/24 07:27 Pulse 80 07/03/24 07:27 Resp 16 07/03/24 07:27 BP 108/55 L 07/03/24 07:27 Pulse Ox 93 07/03/24 07:27 O2 Del Method Room Air 07/03/24 07:27 O2 Flow Rate 2 06/28/24 19:22 BMI result Body Mass Index 32.4 Const: Other: Constitutional : interactive, not in distress Cardiovascular : no JVP, no lower extremity edema Respiratory : bilateral chest movement, not in resp distress Gastrointestinal: soft, lax, Non tender Skin : Warm, Dry Neurological : Alert & disoriented , No focal deficit Objective Data Active Medications Acetaminophen (Acetaminophen 325 Mg Tablet) 650 mg PO Q6H PRN PRN Reason: Pain, Mild (Pain Scale 1-3), fever or headache Last Admin: 06/30/24 21:36 Dose: 650 mg Documented By: SAMANTHA Albuterol Sulfate (Albuterol Sulfate (0.083%) 2.5 Mg/3 Ml Vial.Neb) 2.5 mg INHALE Q4H PRN PRN Reason: Shortness Of Breath Or Wheezing Amiodarone HCl (Amiodarone Hcl 200 Mg Tablet) 200 mg PO DAILY [facility] Last Admin: 07/03/24 08:17 Dose: 200 mg Documented By: JENN Amlodipine Besylate (Amlodipine Besylate 10 Mg Tablet) 10 mg PO DAILY [facility]; Protocol Last Admin: 07/03/24 08:17 Dose: 10 mg Documented By: JENN Apixaban (Apixaban 2.5 Mg Tablet) 2.5 mg PO BID [facility] Last Admin: 06/29/24 19:57 Dose: 2.5 mg Documented By: DAVID Ascorbic Acid (Ascorbic Acid 500 Mg Tablet) 500 mg PO BID [facility] Last Admin: 07/03/24 08:17 Dose: 500 mg Documented By: JENN Bisacodyl (Bisacodyl 10 Mg Supp.Rect) 10 mg [place] DAILY PRN PRN Reason: Constipation Calcium Carbonate (Calcium Carbonate 750 Mg Tab.Chew) 750 mg PO Q4H PRN PRN Reason: Heartburn Docusate Sodium (Docusate Sodium 100 Mg Capsule) 100 mg PO BID [facility] Last Admin: 07/03/24 08:17 Dose: 100 mg Documented By: JENN Doxazosin Mesylate (Doxazosin Mesylate 2 Mg Tablet) 4 mg PO BEDTIME [facility]; Protocol Last Admin: 07/02/24 19:55 Dose: 4 mg Documented By: DAVID Famotidine (Famotidine 20 Mg Tablet) 20 mg PO BEDTIME [facility] Last Admin: 07/02/24 19:56 Dose: 20 mg Documented By: DAVID Ferrous Sulfate (Ferrous Sulfate 324 Mg Tablet.Dr) 324 mg PO BID [facility] Last Admin: 07/03/24 08:17 Dose: 324 mg Documented By: JENN Finasteride (Finasteride 5 Mg Tablet) 5 mg PO DAILY [facility] Last Admin: 07/03/24 08:18 Dose: 5 mg Documented By: JENN Gabapentin (Gabapentin 100 Mg Capsule) 100 mg PO BID [facility] Last Admin: 07/03/24 08:17 Dose: 100 mg Documented By: JENN Heparin Sodium (Porcine) (Heparin Sodium,Porcine Flush 50 Units/5 Ml Syringe) 50 units IVFLUSH QSHIFT [facility] Last Admin: 07/03/24 08:18 Dose: 50 units Documented By: JENN Levothyroxine Sodium (Levothyroxine Sodium 100 Mcg Tablet) 100 mcg PO DAILY@0600 [facility] Last Admin: 07/03/24 05:04 Dose: 100 mcg Documented By: DAVID Lidocaine (Lidocaine 4 % Patch Adh..Patch) 1 patch TRANSDERMA DAILY [facility] Last Admin: 07/03/24 08:19 Dose: 1 patch Documented By: JENN Magnesium Hydroxide (Milk Of Magnesia 30 Ml Oral.Susp) 30 ml PO DAILY PRN PRN Reason: Constipation Melatonin (Melatonin 3 Mg Tablet) 6 mg PO BEDTIME PRN PRN Reason: Insomnia Last Admin: 06/30/24 21:35 Dose: 6 mg Documented By: SAMANTHA Meropenem (Meropenem 500 Mg Vial) 500 mg IVPUSH Q12H [facility] Last Admin: 07/03/24 05:04 Dose: 500 mg Documented By: DAVID Multivitamins/Vitamin C (Multivitamin Tablet) 1 tab PO DAILY [facility] Last Admin: 07/03/24 08:17 Dose: 1 tab Documented By: JENN Nystatin (Nystatin Powder 15 Gm Bottle) 1 appl TOPICAL DAILY [facility]; Protocol Last Admin: 07/03/24 08:21 Dose: 1 appl Documented By: JENN Omeprazole (Omeprazole 20 Mg Capsule.) 20 mg PO BID@0630,1630 [facility] Last Admin: 07/03/24 05:04 Dose: 20 mg Documented By: DAVID Oxycodone HCl (Oxycodone Hcl Immed Release 5 Mg Tablet) 5 mg PO Q6H PRN PRN Reason: Pain, Severe (Pain Scale 7-10) Last Admin: 07/03/24 08:32 Dose: 5 mg Documented By: JENN Polyethylene Glycol (Polyethylene Glycol 3350 17 Gm Powd.Pack) 17 gm PO DAILY [facility] Last Admin: 07/03/24 08:18 Dose: 17 gm Documented By: JENN Quetiapine Fumarate (Quetiapine Fumarate 25 Mg Tablet) 25 mg PO BEDTIME [facility] Last Admin: 07/02/24 19:56 Dose: 25 mg Documented By: DAVID Senna (Sennosides 8.6 Mg Tablet) 17.2 mg PO BEDTIME [facility] Last Admin: 07/02/24 19:56 Dose: 17.2 mg Documented By: DAVID Sodium Chloride (0.9 % Sodium Chloride Flush 3 Ml Syringe) 3 ml IVFLUSH QSHIFT [facility] Last Admin: 07/03/24 08:18 Dose: 3 ml Documented By: JENN Thiamine HCl (Thiamine Hcl 100 Mg Tablet) 100 mg PO DAILY [facility] Last Admin: 07/03/24 08:17 Dose: 100 mg Documented By: JENN Labs 07/02/24 05:29 07/02/24 05:29 Assessment and Plan (1) Bilateral hydronephrosis: Status: Acute (2) History of ESBL E. coli infection: Status: Acute (3) Acute UTI: Status: Acute (4) PRABHU (acute kidney injury): Status: Acute Plan 84M PMH pafib, hfref, htn, CKD III, GALLITO, prolonged hospitalizations at [facility] 02/2024 for aspiration pneumonia discharged to LTAC with tracheostomy and PEG, now at [facility], trache removed, eating by mouth, sent by [facility] for ESBL Acute urinary tract infection due to ESBL Klebsiella complicated with bacteremia IV meropenem, ID appreciated, will need 14 day total merem/ertapenem end jul 10, 2024 s/p midline placement 07/01/24, reported leaking from it IR to recheck tomorrow unspecified dementia with acute delrium orienting strategies, improved today PRABHU on CKD 3 obstructive + hypovoelmic, cta/p with bilateral hydro desai placed, improving Cr level Urology input appreciated -repeat CT on 06/30 persistent Left sided hydro despite desai, Right sided improved acute on chronic anemia multifactorial chronic blood loss, inflammatory, dilutional holding eliquis, ppi, gi appreciated - conservative therapy for now, ?outpatient scope, transfused 1 unit prbc and hgb improved, monitor Paroxysmal atrial fibrillation eliquis on hold for possible bleed, amio hypothyroid synthroid Chronic systolic CHF euvolemic DVT prophylaxis - mechanical due to anemia DNR, not DNI reason for continued hospitalization: Hydronephrosis, PRABHU , Midline problem. Quality Stroke Does the patient have a stroke diagnosis?: No VTE Prior VTE?: No VTE Risk Level:: Medical - moderate - high VTE Device Contraindication: Treatment Not Indicated VTE Drug Contraindication: N/A - Med Ordered
[2024-07-03 15:24] VITALS: BP 132/59; PULSE 78; RESP 18; TEMP 36.5; O2SAT 96
[2024-07-03] MEDS: Acetaminophen 325 MG TABLET 650 MG PO (19:42)
[2024-07-03] MEDS: QUEtiapine Fumarate 25 MG TABLET PO (19:42)
[2024-07-03] MEDS: Famotidine 20 MG TABLET PO (19:42)
[2024-07-03] MEDS: Sennosides 8.6 MG TABLET 17.2 MG PO (19:42)
[2024-07-03 19:45] VITALS: BP 149/65
[2024-07-03] MEDS: Doxazosin Mesylate 2 MG TABLET 4 MG PO (19:45)
[2024-07-03 19:48] VITALS: BP 149/65; PULSE 78; RESP 18; TEMP 36.6; O2SAT 94
[2024-07-04] MEDS: Heparin Sodium,Porcine Flush 50 UNITS/5 ML SYRINGE IVFLUSH ×3 (00:34→23:03)
[2024-07-04] MEDS: 0.9 % Sodium Chloride Flush 3 ML SYRINGE IVFLUSH ×4 (00:34→20:25)
[2024-07-04] MEDS: Melatonin 3 MG TABLET 6 MG PO ×2 (01:10→20:25)
[2024-07-04] MEDS: oxyCODONE HCl Immed Release 5 MG TABLET PO ×4 (01:10→20:25)
[2024-07-04 03:17] VITALS: BP 117/58; PULSE 68; RESP 18; TEMP 36; O2SAT 94
[2024-07-04] MEDS: Meropenem 500 MG VIAL IVPUSH ×2 (04:30→16:44)
[2024-07-04] MEDS: Omeprazole 20 MG CAPSULE.DR PO ×2 (05:17→15:34)
[2024-07-04] MEDS: Levothyroxine Sodium 100 MCG TABLET PO (05:17)
[2024-07-04 07:58] VITALS: BP 124/61; PULSE 77; RESP 16; TEMP 36; O2SAT 93
[2024-07-04] MEDS: Multivitamin TABLET 1 TAB PO (08:09)
[2024-07-04] MEDS: Amiodarone HCL 200 MG TABLET PO (08:09)
[2024-07-04] MEDS: Ascorbic Acid 500 MG TABLET PO ×2 (08:09→20:25)
[2024-07-04] MEDS: amLODIPine Besylate 10 MG TABLET PO (08:09)
[2024-07-04] MEDS: Gabapentin 100 MG CAPSULE PO ×2 (08:09→20:22)
[2024-07-04] MEDS: Docusate Sodium 100 MG CAPSULE PO ×2 (08:09→20:25)
[2024-07-04] MEDS: Ferrous Sulfate 324 MG TABLET.DR PO ×2 (08:10→20:25)
[2024-07-04] MEDS: Lidocaine 4 % Patch ADH..PATCH 1 PATCH TRANSDERMA (08:10)
[2024-07-04] MEDS: Thiamine HCL 100 MG TABLET PO (08:10)
[2024-07-04] MEDS: Finasteride 5 MG TABLET PO (08:10)
[2024-07-04] MEDS: polyethylene glycoL 3350 17 GM POWD.PACK PO (08:11)
[2024-07-04] MEDS: Nystatin Powder 15 GM BOTTLE 1 APPL TOPICAL (08:11)
--- NOTE | 2024-07-04 08:47 | MHC.CM.PN ---
THERE WERE NO BED OFFERS AT THE SNFS PREFERRED BY [facility] REFERRAL NOW BROADCASTED, [facility]KEY FOLLOWING, BUT NO BED OFFERS
--- NOTE | 2024-07-04 09:43 | HO.MIDLINE ---
Midline Insertion MIDLINE INSERTION Diagnosis: UTI Indication: nursing home abt Pertinent Labs: reviewed Technique: Using sterile technique including cap and mask, glove and drape, the right arm was prepped and draped in the usual sterile fashion of full barrier technique with CHG. Using ultrasound guidance, right cephalic vein access was obtained . [id number] single lumen nonPASV PowerMidline catheter trimmed to 15cm was positioned. The procedure was performed in rm [id number]. Ultrasound was used to document vein patency and for needle entry. A formal ultrasound picture was recorded. Vascular Nuisance Wildlife Control Operator has released the line for use and it is currently dressed with a StatLock, Tegaderm, and CHG disc. Verification has been performed for blood return and line patency. Arm Circumference: 30cm Equipment: BARD PowerMidline catheter Catheter Type: 4fr x20cm Lot #: [id number]
[2024-07-04 09:49] VITALS: BP 106/61; PULSE 80; RESP 16; TEMP 36.2; O2SAT 96
[2024-07-04 10:20] VITALS: BP 106/61; PULSE 80; O2SAT 96
--- NOTE | 2024-07-04 10:48 | P.PNIM_ITS ---
Subjective Subjective Date of Service: 07/04/24 Interval History: Confused with no specific complaint at this time Review of Systems Review of Systems: Yes all other systems are reviewed and are negative Physical Exam 2 Vital Signs: Vital Signs: Last Vital Signs Temp 97.1 F 07/04/24 09:49 Pulse 80 07/04/24 10:20 Resp 16 07/04/24 09:49 BP 106/61 07/04/24 10:20 Pulse Ox 96 07/04/24 10:20 O2 Del Method Room Air 07/04/24 09:49 O2 Flow Rate 2 06/28/24 19:22 BMI result Body Mass Index 32.4 Const: Other: Constitutional : interactive, not in distress Cardiovascular : no JVP, no lower extremity edema Respiratory : bilateral chest movement, not in resp distress Gastrointestinal: soft, lax, Non tender Skin : Warm, Dry Neurological : Alert & disoriented , No focal deficit Objective Data Active Medications Acetaminophen (Acetaminophen 325 Mg Tablet) 650 mg PO Q6H PRN PRN Reason: Pain, Mild (Pain Scale 1-3), fever or headache Last Admin: 07/03/24 19:42 Dose: 650 mg Documented By: WALTER Amiodarone HCl (Amiodarone Hcl 200 Mg Tablet) 200 mg PO DAILY [facility] Last Admin: 07/04/24 08:09 Dose: 200 mg Documented By: JENN Amlodipine Besylate (Amlodipine Besylate 10 Mg Tablet) 10 mg PO DAILY [facility]; Protocol Last Admin: 07/04/24 08:09 Dose: 10 mg Documented By: JENN Apixaban (Apixaban 2.5 Mg Tablet) 2.5 mg PO BID [facility] Last Admin: 06/29/24 19:57 Dose: 2.5 mg Documented By: DAVID Ascorbic Acid (Ascorbic Acid 500 Mg Tablet) 500 mg PO BID [facility] Last Admin: 07/04/24 08:09 Dose: 500 mg Documented By: JENN Bisacodyl (Bisacodyl 10 Mg Supp.Rect) 10 mg [place] DAILY PRN PRN Reason: Constipation Calcium Carbonate (Calcium Carbonate 750 Mg Tab.Chew) 750 mg PO Q4H PRN PRN Reason: Heartburn Heparin Sodium (Porcine) 50 (units/ Sodium Chloride 5 ml) 0 units IVFLUSH [facility] Docusate Sodium (Docusate Sodium 100 Mg Capsule) 100 mg PO BID [facility] Last Admin: 07/04/24 08:09 Dose: 100 mg Documented By: JENN Doxazosin Mesylate (Doxazosin Mesylate 2 Mg Tablet) 4 mg PO BEDTIME [facility]; Protocol Last Admin: 07/03/24 19:45 Dose: 4 mg Documented By: WALTER Famotidine (Famotidine 20 Mg Tablet) 20 mg PO BEDTIME [facility] Last Admin: 07/03/24 19:42 Dose: 20 mg Documented By: WALTER Ferrous Sulfate (Ferrous Sulfate 324 Mg Tablet.Dr) 324 mg PO BID [facility] Last Admin: 07/04/24 08:10 Dose: 324 mg Documented By: JENN Finasteride (Finasteride 5 Mg Tablet) 5 mg PO DAILY [facility] Last Admin: 07/04/24 08:10 Dose: 5 mg Documented By: JENN Gabapentin (Gabapentin 100 Mg Capsule) 100 mg PO BID [facility] Last Admin: 07/04/24 08:09 Dose: 100 mg Documented By: JENN Heparin Sodium (Porcine) (Heparin Sodium,Porcine Flush 50 Units/5 Ml Syringe) 50 units IVFLUSH QSHIFT [facility] Last Admin: 07/04/24 08:06 Dose: Not Given Documented By: JENN Non-Admin Reason: pt has no midline Levothyroxine Sodium (Levothyroxine Sodium 100 Mcg Tablet) 100 mcg PO DAILY@0600 [facility] Last Admin: 07/04/24 05:17 Dose: 100 mcg Documented By: WALTER Lidocaine (Lidocaine 4 % Patch Adh..Patch) 1 patch TRANSDERMA DAILY [facility] Last Admin: 07/04/24 08:10 Dose: 1 patch Documented By: JENN Magnesium Hydroxide (Milk Of Magnesia 30 Ml Oral.Susp) 30 ml PO DAILY PRN PRN Reason: Constipation Melatonin (Melatonin 3 Mg Tablet) 6 mg PO BEDTIME PRN PRN Reason: Insomnia Last Admin: 07/04/24 01:10 Dose: 6 mg Documented By: WALTER Meropenem (Meropenem 500 Mg Vial) 500 mg IVPUSH Q12H [facility] Last Admin: 07/04/24 04:30 Dose: 500 mg Documented By: WALTER Multivitamins/Vitamin C (Multivitamin Tablet) 1 tab PO DAILY [facility] Last Admin: 07/04/24 08:09 Dose: 1 tab Documented By: JENN Nystatin (Nystatin Powder 15 Gm Bottle) 1 appl TOPICAL DAILY [facility]; Protocol Last Admin: 07/04/24 08:11 Dose: 1 appl Documented By: JENN Omeprazole (Omeprazole 20 Mg Capsule.) 20 mg PO BID@0630,1630 [facility] Last Admin: 07/04/24 05:17 Dose: 20 mg Documented By: WALTER Oxycodone HCl (Oxycodone Hcl Immed Release 5 Mg Tablet) 5 mg PO Q6H PRN PRN Reason: Pain, Severe (Pain Scale 7-10) Last Admin: 07/04/24 08:18 Dose: 5 mg Documented By: JENN Polyethylene Glycol (Polyethylene Glycol 3350 17 Gm Powd.Pack) 17 gm PO DAILY [facility] Last Admin: 07/04/24 08:11 Dose: 17 gm Documented By: JENN Quetiapine Fumarate (Quetiapine Fumarate 25 Mg Tablet) 25 mg PO BEDTIME [facility] Last Admin: 07/03/24 19:42 Dose: 25 mg Documented By: WALTER Senna (Sennosides 8.6 Mg Tablet) 17.2 mg PO BEDTIME [facility] Last Admin: 07/03/24 19:42 Dose: 17.2 mg Documented By: WALTER Sodium Chloride (0.9 % Sodium Chloride Flush 3 Ml Syringe) 3 ml IVFLUSH QSHIFT [facility] Last Admin: 07/04/24 08:10 Dose: 3 ml Documented By: JENN Thiamine HCl (Thiamine Hcl 100 Mg Tablet) 100 mg PO DAILY [facility] Last Admin: 07/04/24 08:10 Dose: 100 mg Documented By: JENN Labs 07/02/24 05:29 07/02/24 05:29 Assessment and Plan (1) Bilateral hydronephrosis: Status: Acute (2) History of ESBL E. coli infection: Status: Acute (3) Acute UTI: Status: Acute (4) PRABHU (acute kidney injury): Status: Acute Plan 84M PMH pafib, hfref, htn, CKD III, GALLITO, prolonged hospitalizations at [facility] [place] 02/2024 for aspiration pneumonia discharged to LTAC with tracheostomy and PEG, now at [place], trache removed, eating by mouth, sent by [place] for ESBL Acute urinary tract infection due to ESBL Klebsiella complicated with bacteremia IV meropenem, ID appreciated, will need 14 day total merem/ertapenem end jul 10, 2024 s/p midline placement 07/01/24, reported leaking from it PICC line placed today unspecified dementia with acute delrium freuent reorient PRABHU on CKD 3 obstructive + hypovoelmic, cta/p with bilateral hydro desai placed, improving Cr level Urology input appreciated -repeat CT on 06/30 persistent Left sided hydro despite desai, Right sided improved acute on chronic anemia multifactorial chronic blood loss, inflammatory, dilutional holding eliquis, ppi, gi appreciated - conservative therapy for now, ?outpatient scope, transfused 1 unit prbc and hgb improved, monitor Paroxysmal atrial fibrillation eliquis on hold for possible bleed, amio hypothyroid synthroid Chronic systolic CHF euvolemic DVT prophylaxis - mechanical due to anemia DNR, not DNI reason for continued hospitalization: Hydronephrosis, PRABHU , Midline problem. pt is recommending jail care Quality Stroke Does the patient have a stroke diagnosis?: No VTE Prior VTE?: No VTE Risk Level:: Medical - moderate - high VTE Device Contraindication: Treatment Not Indicated VTE Drug Contraindication: N/A - Med Ordered
--- NOTE | 2024-07-04 11:37 | MHC.CLN ---
F/U PT WITH INCREASED NUTRITION RISK R/T PRESSURE INJURY PO INTAKE VERY POOR REGULAR DIET-APPROPRIATE ENSURE TID PROVIDES 1050 KCALS, 60 G PROTEIN SUPPLEMENT TO PROMOTE NUTRITIONAL INTAKE AND WOUND HEALING. PT HAS PEG TUBE NOT IN USE IF TF NEEDED FOR NUTRITION; RECOMMEND START PROMOTE TF AT 20ML/HR CONTINUE TO MONITOR PO INTAKE AND ENCOURAGE SUPPLEMENTS
--- NOTE | 2024-07-04 13:01 | P.PNNP_ITS ---
Subjective Subjective Date of Service: 07/04/24 Interval history: Confused with no specific complaint at this time Physical Exam 2 Vital Signs: Vital Signs: Last Vital Signs Temp 97.1 F 07/04/24 09:49 Pulse 80 07/04/24 10:20 Resp 16 07/04/24 09:49 BP 106/61 07/04/24 10:20 Pulse Ox 96 07/04/24 10:20 O2 Del Method Room Air 07/04/24 09:49 O2 Flow Rate 2 06/28/24 19:22 BMI result Body Mass Index 32.4 Const: Other: Constitutional : interactive, not in distress Cardiovascular : no JVP, no lower extremity edema Respiratory : bilateral chest movement, not in resp distress Gastrointestinal: soft, lax, Non tender Skin : Warm, Dry Neurological : Alert & disoriented , No focal deficit Objective Data Labs 07/02/24 05:29 07/02/24 05:29 Microbiology Microbiology Results: Microbiology 06/26/24 14:49 Blood - Venous Blood Culture - Final No growth after 5 days. 06/26/24 17:58 Urine clean catch - Clean Catch Midstream Urine Culture - Final Klebsiella pneumoniae 06/26/24 14:39 Blood - Venous Blood Culture - Final Klebsiella pneumoniae Procedures Date of Service Date of Service: 07/04/24 Assessment & Plan Assessment and plan (1) PRABHU (acute kidney injury): Status: Acute Plan Elderly man with acute kidney injury superimposed on CKD. Acute kidney injury due to a combination of obstructive uropathy and severe volume depletion. Recommendation Keep [place] Intake more than output Increase oral free water intake Renal function is improving. No indication for dialysis. Given the comorbid conditions he would not be a candidate for dialysis if the need arises. Therefore there is no absolute contraindication to insert a PICC line if needed. Continue supportive care Time Spent With Patient Time: Total time managing care of this patient today ____ minutes. Progress Note: Quality Stroke Does the patient have a stroke diagnosis?: No
[2024-07-04 15:27] VITALS: BP 118/58; PULSE 78; RESP 16; TEMP 36.1; O2SAT 94
[2024-07-04 19:23] VITALS: BP 133/63; PULSE 83; RESP 16; TEMP 36; O2SAT 96
[2024-07-04] MEDS: Sennosides 8.6 MG TABLET 17.2 MG PO (20:22)
[2024-07-04] MEDS: Doxazosin Mesylate 2 MG TABLET 4 MG PO (20:23)
[2024-07-04] MEDS: Acetaminophen 325 MG TABLET 650 MG PO (20:23)
[2024-07-04] MEDS: Famotidine 20 MG TABLET PO (20:25)
[2024-07-04] MEDS: QUEtiapine Fumarate 25 MG TABLET PO (20:25)
[2024-07-05 03:22] VITALS: BP 100/57; PULSE 65; RESP 16; TEMP 36; O2SAT 95
[2024-07-05] MEDS: Meropenem 500 MG VIAL IVPUSH ×2 (05:39→17:06)
[2024-07-05] MEDS: Levothyroxine Sodium 100 MCG TABLET PO (05:46)
[2024-07-05] MEDS: Omeprazole 20 MG CAPSULE.DR PO ×2 (05:46→17:06)
[2024-07-05] MEDS: Thiamine HCL 100 MG TABLET PO (07:34)
[2024-07-05] MEDS: Ferrous Sulfate 324 MG TABLET.DR PO ×2 (07:34→20:43)
[2024-07-05] MEDS: oxyCODONE HCl Immed Release 5 MG TABLET PO ×2 (07:34→17:05)
[2024-07-05] MEDS: Heparin Sodium,Porcine Flush 50 UNITS/5 ML SYRINGE IVFLUSH ×3 (07:34→23:18)
[2024-07-05 08:00] VITALS: BP 141/65; PULSE 63; RESP 17; TEMP 36.3; O2SAT 95
[2024-07-05] MEDS: 0.9 % Sodium Chloride Flush 3 ML SYRINGE IVFLUSH ×2 (09:00→20:46)
[2024-07-05] MEDS: Nystatin Powder 15 GM BOTTLE 1 APPL TOPICAL (09:00)
[2024-07-05] MEDS: Docusate Sodium 100 MG CAPSULE PO ×2 (09:00→20:45)
[2024-07-05] MEDS: Ascorbic Acid 500 MG TABLET PO ×2 (09:00→20:43)
[2024-07-05] MEDS: Amiodarone HCL 200 MG TABLET PO (09:00)
[2024-07-05] MEDS: amLODIPine Besylate 10 MG TABLET PO (09:00)
--- NOTE | 2024-07-05 12:01 | MHC.CLN ---
F/U PT WITH INCREASED NUTRITION RISK R/T PRESSURE INJURY PO INTAKE VERY POOR-0-25% REGULAR DIET-APPROPRIATE ENSURE TID PROVIDES 1050 KCALS, 60 G PROTEIN WITH 100% ACCEPTANCE PT HAS PEG TUBE NOT IN USE IF TF NEEDED FOR NUTRITION; RECOMMEND START PROMOTE TF AT 20ML/HR CONTINUE TO MONITOR PO INTAKE AND ENCOURAGE SUPPLEMENTS
--- NOTE | 2024-07-05 15:10 | MHC.CM.PN ---
PT NOT READY FOR DC PT IS NOW LTC REFERRAL TO [facility] CALL PLACED MESSAGE LEFT FOR CAROLINE MARTINEZ IN [facility] [phone]
[2024-07-05 15:37] VITALS: BP 110/56; PULSE 85; RESP 18; TEMP 36.2; O2SAT 97
--- NOTE | 2024-07-05 15:55 | MHC.CM.PN ---
SPOKE W/PTS DAUGHTER SUSY AND THEN EMAILED HER PER HER REQUEST IMFO RE PP AGENCY AND COVERING MD TODAY
--- NOTE | 2024-07-05 16:25 | HO.PM.IMPN ---
Subjective Subjective Date of Service: 07/05/24 Interval History: Confused with no specific complaint at this time Review of Systems Denies new complaints. Physical Exam Vital Signs: Vital Signs: Last Vital Signs Temp 97.1 F 07/05/24 15:37 Pulse 85 07/05/24 15:37 Resp 18 07/05/24 15:37 BP 110/56 L 07/05/24 15:37 Pulse Ox 97 07/05/24 15:37 O2 Del Method Room Air 07/05/24 15:37 O2 Flow Rate 2 06/28/24 19:22 BMI result Body Mass Index 32.4 Constitutional : interactive, not in distress Cardiovascular : no JVP, no lower extremity edema Respiratory : bilateral chest movement, not in resp distress Gastrointestinal: soft, lax, Non tender Skin : Warm, Dry Neurological : Alert & disoriented , No focal deficit Objective Data Active Medications Acetaminophen (Acetaminophen 325 Mg Tablet) 650 mg PO Q6H PRN PRN Reason: Pain, Mild (Pain Scale 1-3), fever or headache Last Admin: 07/04/24 20:23 Dose: 650 mg Documented By: RUTH Amiodarone HCl (Amiodarone Hcl 200 Mg Tablet) 200 mg PO DAILY [facility] Last Admin: 07/05/24 09:00 Dose: 200 mg Documented By: KERA Amlodipine Besylate (Amlodipine Besylate 10 Mg Tablet) 10 mg PO DAILY [facility]; Protocol Last Admin: 07/05/24 09:00 Dose: 10 mg Documented By: KERA Apixaban (Apixaban 2.5 Mg Tablet) 2.5 mg PO BID [facility] Last Admin: 06/29/24 19:57 Dose: 2.5 mg Documented By: DAVID Ascorbic Acid (Ascorbic Acid 500 Mg Tablet) 500 mg PO BID [facility] Last Admin: 07/05/24 09:00 Dose: 500 mg Documented By: KERA Bisacodyl (Bisacodyl 10 Mg Supp.Rect) 10 mg [place] DAILY PRN PRN Reason: Constipation Calcium Carbonate (Calcium Carbonate 750 Mg Tab.Chew) 750 mg PO Q4H PRN PRN Reason: Heartburn Docusate Sodium (Docusate Sodium 100 Mg Capsule) 100 mg PO BID [facility] Last Admin: 07/05/24 09:00 Dose: 100 mg Documented By: KERA Doxazosin Mesylate (Doxazosin Mesylate 2 Mg Tablet) 4 mg PO BEDTIME [facility]; Protocol Last Admin: 07/04/24 20:23 Dose: 4 mg Documented By: RUTH Famotidine (Famotidine 20 Mg Tablet) 20 mg PO BEDTIME [facility] Last Admin: 07/04/24 20:25 Dose: 20 mg Documented By: RUTH Ferrous Sulfate (Ferrous Sulfate 324 Mg Tablet.Dr) 324 mg PO BID [facility] Last Admin: 07/05/24 07:34 Dose: 324 mg Documented By: KERA Finasteride (Finasteride 5 Mg Tablet) 5 mg PO DAILY [facility] Last Admin: 07/05/24 09:00 Dose: Not Given Documented By: KERA Non-Admin Reason: Patient Refused Gabapentin (Gabapentin 100 Mg Capsule) 100 mg PO BID [facility] Last Admin: 07/05/24 09:00 Dose: Not Given Documented By: KERA Non-Admin Reason: Patient Refused Heparin Sodium (Porcine) (Heparin Sodium,Porcine Flush 50 Units/5 Ml Syringe) 50 units IVFLUSH QSHIFT [facility] Last Admin: 07/05/24 07:34 Dose: 50 units Documented By: KERA Levothyroxine Sodium (Levothyroxine Sodium 100 Mcg Tablet) 100 mcg PO DAILY@0600 [facility] Last Admin: 07/05/24 05:46 Dose: 100 mcg Documented By: RUTH Lidocaine (Lidocaine 4 % Patch Adh..Patch) 1 patch TRANSDERMA DAILY [facility] Last Admin: 07/05/24 09:00 Dose: Not Given Documented By: KERA Non-Admin Reason: Patient Refused Magnesium Hydroxide (Milk Of Magnesia 30 Ml Oral.Susp) 30 ml PO DAILY PRN PRN Reason: Constipation Melatonin (Melatonin 3 Mg Tablet) 6 mg PO BEDTIME PRN PRN Reason: Insomnia Last Admin: 07/04/24 20:25 Dose: 6 mg Documented By: RUTH Meropenem (Meropenem 500 Mg Vial) 500 mg IVPUSH Q12H [facility] Last Admin: 07/05/24 05:39 Dose: 500 mg Documented By: RUTH Multivitamins/Vitamin C (Multivitamin Tablet) 1 tab PO DAILY [facility] Last Admin: 07/05/24 09:01 Dose: Not Given Documented By: KERA Non-Admin Reason: Patient Refused Nystatin (Nystatin Powder 15 Gm Bottle) 1 appl TOPICAL DAILY [facility]; Protocol Last Admin: 07/05/24 09:00 Dose: 1 appl Documented By: KERA Omeprazole (Omeprazole 20 Mg Capsule.) 20 mg PO BID@0630,1630 [facility] Last Admin: 07/05/24 05:46 Dose: 20 mg Documented By: RUTH Oxycodone HCl (Oxycodone Hcl Immed Release 5 Mg Tablet) 5 mg PO Q6H PRN PRN Reason: Pain, Severe (Pain Scale 7-10) Last Admin: 07/05/24 07:34 Dose: 5 mg Documented By: KERA Polyethylene Glycol (Polyethylene Glycol 3350 17 Gm Powd.Pack) 17 gm PO DAILY [facility] Last Admin: 07/05/24 07:34 Dose: Not Given Documented By: KERA Non-Admin Reason: Patient Refused Quetiapine Fumarate (Quetiapine Fumarate 25 Mg Tablet) 25 mg PO BEDTIME [facility] Last Admin: 07/04/24 20:25 Dose: 25 mg Documented By: RUTH Senna (Sennosides 8.6 Mg Tablet) 17.2 mg PO BEDTIME [facility] Last Admin: 07/04/24 20:22 Dose: 17.2 mg Documented By: RUTH Sodium Chloride (0.9 % Sodium Chloride Flush 3 Ml Syringe) 3 ml IVFLUSH QSHIFT [facility] Last Admin: 07/05/24 09:00 Dose: 3 ml Documented By: KERA Thiamine HCl (Thiamine Hcl 100 Mg Tablet) 100 mg PO DAILY [facility] Last Admin: 07/05/24 07:34 Dose: 100 mg Documented By: KERA Labs 07/02/24 05:29 07/02/24 05:29 Assessment and Plan (1) Bilateral hydronephrosis: Status: Acute (2) History of ESBL E. coli infection: Status: Acute (3) Acute UTI: Status: Acute (4) PRABHU (acute kidney injury): Status: Acute Plan 84M PMH pafib, hfref, htn, CKD III, GALLITO, [place] [facility] for aspiration pneumonia discharged to LTAC with tracheostomy and PEG, now at [place], trache removed, eating by mouth, sent by [place] for ESBL Acute urinary tract infection due to ESBL Klebsiella complicated with bacteremia IV meropenem, ID appreciated, will need 14 day total merem/ertapenem end jul 10, 2024 s/p midline placement 07/01/24, reported leaking from it PICC line placed today unspecified dementia with acute delrium freuent reorient PRABHU on CKD 3 obstructive + hypovoelmic, cta/p with bilateral hydro desai placed, improving Cr level Urology input appreciated -repeat CT on 06/30 persistent Left sided hydro despite desai, Right sided improved acute on chronic anemia multifactorial chronic blood loss, inflammatory, dilutional holding eliquis, ppi, gi appreciated - conservative therapy for now, ?outpatient scope, transfused 1 unit prbc and hgb improved, monitor Paroxysmal atrial fibrillation eliquis on hold for possible bleed, amio hypothyroid synthroid Chronic systolic CHF euvolemic DVT prophylaxis - mechanical due to anemia DNR, not DNI reason for continued hospitalization: Hydronephrosis, PRABHU . pt is recommending residential care Quality Stroke Does the patient have a stroke diagnosis?: No VTE Prior VTE?: No VTE Risk Level:: Medical - moderate - high VTE Device Contraindication: Treatment Not Indicated VTE Drug Contraindication: N/A - Med Ordered
--- NOTE | 2024-07-05 16:29 | PC.NURSE ---
Pt resistive to care. Refusing food but did consume some gingerale and water. C/o intermittent pain but refusing pain medications after offered several times. Will continue to offer as needed. repositoned onto left side with much resistance
[2024-07-05] MEDS: Acetaminophen 325 MG TABLET 650 MG PO (17:05)
--- NOTE | 2024-07-05 17:29 | PC.NURSE ---
Pt spoke with daughter Chapis on the phone and agreed to take pain medication and other medications from this RN. Cooperative with care at this time. Repositioned onto side
[2024-07-05 20:00] VITALS: BP 112/57; PULSE 70; RESP 18; TEMP 36.6; O2SAT 96
[2024-07-05] MEDS: QUEtiapine Fumarate 25 MG TABLET PO (20:40)
[2024-07-05] MEDS: Gabapentin 100 MG CAPSULE PO (20:41)
[2024-07-05] MEDS: Famotidine 20 MG TABLET PO (20:42)
[2024-07-05] MEDS: Doxazosin Mesylate 2 MG TABLET 4 MG PO (20:42)
[2024-07-05] MEDS: Sennosides 8.6 MG TABLET 17.2 MG PO (20:44)
[2024-07-05 21:35] VITALS: PULSE 76; RESP 17; O2SAT 95
[2024-07-06 03:38] VITALS: BP 125/62; PULSE 82; RESP 18; TEMP 36.2; O2SAT 95
[2024-07-06] MEDS: Levothyroxine Sodium 100 MCG TABLET PO (05:56)
[2024-07-06] MEDS: Omeprazole 20 MG CAPSULE.DR PO ×2 (05:56→16:26)
[2024-07-06] MEDS: Meropenem 500 MG VIAL IVPUSH ×2 (05:56→16:27)
[2024-07-06 07:36] VITALS: BP 125/60; PULSE 70; RESP 16; TEMP 36.2; O2SAT 96
[2024-07-06 08:49] LABS: Anion Gap 11 (12-20); Blood Urea Nitrogen 27 mg/dL (9-16); Calcium 10.1 mg/dL (8.4-10.2); Carbon Dioxide 24 mmol/L (22-29); Chloride 117 mmol/L (96-108); Creatinine Clr Calc Pharmacy 38.7; Estimated Glomerular Filt Rate 41; Glucose Random 85 mg/dL (60-115); Potassium 3.8 mmol/L (3.3-5.1); Sodium 148 mmol/L (135-145)
[2024-07-06] MEDS: Dextrose 5 % and 0.9 % NaCl 1,000 ML 80 ML IVCONT ×2 (09:01→20:15)
[2024-07-06] MEDS: 0.9 % Sodium Chloride Flush 3 ML SYRINGE IVFLUSH (09:03)
[2024-07-06] MEDS: Multivitamin TABLET 1 TAB PO (09:04)
[2024-07-06] MEDS: Ferrous Sulfate 324 MG TABLET.DR PO ×2 (09:04→20:08)
[2024-07-06] MEDS: Amiodarone HCL 200 MG TABLET PO (09:04)
[2024-07-06] MEDS: Heparin Sodium,Porcine Flush 50 UNITS/5 ML SYRINGE IVFLUSH ×2 (09:04→16:26)
[2024-07-06] MEDS: polyethylene glycoL 3350 17 GM POWD.PACK PO (09:04)
[2024-07-06] MEDS: Finasteride 5 MG TABLET PO (09:04)
[2024-07-06] MEDS: Ascorbic Acid 500 MG TABLET PO ×2 (09:04→20:08)
[2024-07-06] MEDS: oxyCODONE HCl Immed Release 5 MG TABLET PO ×2 (09:04→16:26)
[2024-07-06] MEDS: Thiamine HCL 100 MG TABLET PO (09:04)
[2024-07-06] MEDS: Gabapentin 100 MG CAPSULE PO ×2 (09:04→20:08)
[2024-07-06] MEDS: Nystatin Powder 15 GM BOTTLE 1 APPL TOPICAL (09:06)
[2024-07-06] MEDS: Docusate Sodium 100 MG CAPSULE PO ×2 (09:06→20:08)
[2024-07-06] MEDS: Lidocaine 4 % Patch ADH..PATCH 1 PATCH TRANSDERMA (09:26)
--- NOTE | 2024-07-06 12:51 | PC.NURSE ---
Staff assisted breakfast. Pt ate a banana, a few bites of scrambled egg, drank a cranberry juice and an ensure
--- NOTE | 2024-07-06 13:01 | HO.PM.IMPN ---
Subjective Subjective Date of Service: 07/06/24 Interval History: Confused with no specific complaint at this time Review of Systems Denies new complaints. Physical Exam Vital Signs: Vital Signs: Last Vital Signs Temp 97.2 F 07/06/24 07:36 Pulse 70 07/06/24 07:36 Resp 16 07/06/24 07:36 BP 125/60 07/06/24 07:36 Pulse Ox 96 07/06/24 07:36 O2 Del Method Room Air 07/06/24 07:36 O2 Flow Rate 2 06/28/24 19:22 BMI result Body Mass Index 32.4 Constitutional : interactive, not in distress Cardiovascular : no JVP, no lower extremity edema Respiratory : bilateral chest movement, not in resp distress Gastrointestinal: soft, lax, Non tender Skin : Warm, Dry Neurological : Alert & disoriented , No focal deficit Objective Data Active Medications Acetaminophen (Acetaminophen 325 Mg Tablet) 650 mg PO Q6H PRN PRN Reason: Pain, Mild (Pain Scale 1-3), fever or headache Last Admin: 07/05/24 17:05 Dose: 650 mg Documented By: ANDREIA Amiodarone HCl (Amiodarone Hcl 200 Mg Tablet) 200 mg PO DAILY [facility] Last Admin: 07/06/24 09:04 Dose: 200 mg Documented By: ANDREIA Apixaban (Apixaban 2.5 Mg Tablet) 2.5 mg PO BID [facility] Last Admin: 06/29/24 19:57 Dose: 2.5 mg Documented By: DAVID Ascorbic Acid (Ascorbic Acid 500 Mg Tablet) 500 mg PO BID [facility] Last Admin: 07/06/24 09:04 Dose: 500 mg Documented By: ANDREIA Bisacodyl (Bisacodyl 10 Mg Supp.Rect) 10 mg [place] DAILY PRN PRN Reason: Constipation Calcium Carbonate (Calcium Carbonate 750 Mg Tab.Chew) 750 mg PO Q4H PRN PRN Reason: Heartburn Docusate Sodium (Docusate Sodium 100 Mg Capsule) 100 mg PO BID [facility] Last Admin: 07/06/24 09:06 Dose: 100 mg Documented By: ANDREIA Doxazosin Mesylate (Doxazosin Mesylate 2 Mg Tablet) 4 mg PO BEDTIME [facility]; Protocol Last Admin: 07/05/24 20:42 Dose: 4 mg Documented By: JABARI Famotidine (Famotidine 20 Mg Tablet) 20 mg PO BEDTIME [facility] Last Admin: 07/05/24 20:42 Dose: 20 mg Documented By: JABARI Ferrous Sulfate (Ferrous Sulfate 324 Mg Tablet.) 324 mg PO BID [facility] Last Admin: 07/06/24 09:04 Dose: 324 mg Documented By: ANDREIA Finasteride (Finasteride 5 Mg Tablet) 5 mg PO DAILY [facility] Last Admin: 07/06/24 09:04 Dose: 5 mg Documented By: ANDREIA Gabapentin (Gabapentin 100 Mg Capsule) 100 mg PO BID [facility] Last Admin: 07/06/24 09:04 Dose: 100 mg Documented By: ANDREIA Heparin Sodium (Porcine) (Heparin Sodium,Porcine Flush 50 Units/5 Ml Syringe) 50 units IVFLUSH QSHIFT [facility] Last Admin: 07/06/24 09:04 Dose: 50 units Documented By: ANDREIA Dextrose/Sodium Chloride (D5ns) 1,000 mls @ 80 mls/hr IVCONT .[id number] [facility] Last Admin: 07/06/24 09:01 Dose: 80 mls/hr Documented By: ANDREIA Levothyroxine Sodium (Levothyroxine Sodium 100 Mcg Tablet) 100 mcg PO DAILY@0600 [facility] Last Admin: 07/06/24 05:56 Dose: 100 mcg Documented By: JABARI Lidocaine (Lidocaine 4 % Patch Adh..Patch) 1 patch TRANSDERMA DAILY [facility] Last Admin: 07/06/24 09:26 Dose: 1 patch Documented By: ANDREIA Magnesium Hydroxide (Milk Of Magnesia 30 Ml Oral.Susp) 30 ml PO DAILY PRN PRN Reason: Constipation Melatonin (Melatonin 3 Mg Tablet) 6 mg PO BEDTIME PRN PRN Reason: Insomnia Last Admin: 07/04/24 20:25 Dose: 6 mg Documented By: MONTRELLQC Meropenem (Meropenem 500 Mg Vial) 500 mg IVPUSH Q12H [facility] Last Admin: 07/06/24 05:56 Dose: 500 mg Documented By: JABARI Multivitamins/Vitamin C (Multivitamin Tablet) 1 tab PO DAILY [facility] Last Admin: 07/06/24 09:04 Dose: 1 tab Documented By: ANDREIA Nystatin (Nystatin Powder 15 Gm Bottle) 1 appl TOPICAL DAILY [facility]; Protocol Last Admin: 07/06/24 09:06 Dose: 1 appl Documented By: ANDREIA Omeprazole (Omeprazole 20 Mg Capsule.) 20 mg PO BID@0630,9630 [facility] Last Admin: 07/06/24 05:56 Dose: 20 mg Documented By: JABARI Oxycodone HCl (Oxycodone Hcl Immed Release 5 Mg Tablet) 5 mg PO Q6H PRN PRN Reason: Pain, Severe (Pain Scale 7-10) Last Admin: 07/06/24 09:04 Dose: 5 mg Documented By: ANDREIA Polyethylene Glycol (Polyethylene Glycol 3350 17 Gm Powd.Pack) 17 gm PO DAILY [facility] Last Admin: 07/06/24 09:04 Dose: 17 gm Documented By: ANDREIA Quetiapine Fumarate (Quetiapine Fumarate 25 Mg Tablet) 25 mg PO BEDTIME [facility] Last Admin: 07/05/24 20:40 Dose: 25 mg Documented By: JABARI Senna (Sennosides 8.6 Mg Tablet) 17.2 mg PO BEDTIME [facility] Last Admin: 07/05/24 20:44 Dose: 17.2 mg Documented By: JABARI Sodium Chloride (0.9 % Sodium Chloride Flush 3 Ml Syringe) 3 ml IVFLUSH QSHIFT [facility] Last Admin: 07/06/24 09:03 Dose: 3 ml Documented By: ANDREIA Thiamine HCl (Thiamine Hcl 100 Mg Tablet) 100 mg PO DAILY [facility] Last Admin: 07/06/24 09:04 Dose: 100 mg Documented By: ANDREIA Labs 07/02/24 05:29 07/06/24 07:57 Labs: Laboratory Results - last 24 hr 07/06/24 07:57 Hold Purple Top SEE NOTE Anion Gap 11 L Estim Creat Clear Calc 38.7 Estimated GFR 41 Random Glucose 85 Calcium 10.1 Assessment and Plan (1) Bilateral hydronephrosis: Status: Acute (2) History of ESBL E. coli infection: Status: Acute (3) Acute UTI: Status: Acute (4) PRABHU (acute kidney injury): Status: Acute Plan 84M PMH pafib, hfref, htn, CKD III, GALLITO, prolonged hospitalizations at [facility] 02/2024 for aspiration pneumonia discharged to LTAC with tracheostomy and PEG, now at [place], trache removed, eating by mouth, sent by [facility] for ESBL Acute urinary tract infection due to ESBL Klebsiella complicated with bacteremia IV meropenem, ID appreciated, will need 14 day total merem/ertapenem end jul 10, 2024 s/p midline placement 07/01/24, reported leaking from it PICC line placed today unspecified dementia with acute delrium freuent reorient PRABHU on CKD 3 obstructive + hypovoelmic, cta/p with bilateral hydro desai placed, improving Cr level Urology input appreciated -repeat CT on 06/30 persistent Left sided hydro despite desai, Right sided improved. mild hypernatremia - added d5ns moniter sodium closely acute on chronic anemia multifactorial chronic blood loss, inflammatory, dilutional holding eliquis, ppi, gi appreciated - conservative therapy for now, ?outpatient scope, transfused 1 unit prbc and hgb improved, monitor Paroxysmal atrial fibrillation eliquis on hold for possible bleed, amio hypothyroid synthroid Chronic systolic CHF euvolemic DVT prophylaxis - mechanical due to anemia DNR, not DNI reason for continued hospitalization: Hydronephrosis, PRABHU . pt is recommending [facility] Quality Stroke Does the patient have a stroke diagnosis?: No VTE Prior VTE?: No VTE Risk Level:: Medical - moderate - high VTE Device Contraindication: Treatment Not Indicated VTE Drug Contraindication: N/A - Med Ordered
[2024-07-06 15:39] VITALS: BP 113/53; PULSE 81; RESP 16; TEMP 36.1; O2SAT 96
--- NOTE | 2024-07-06 18:43 | PC.NURSE ---
Pt refused lunch and dinner. Did agree and take approximately 200ml water
[2024-07-06 19:02] VITALS: BP 111/57; PULSE 78; RESP 16; TEMP 36; O2SAT 94
[2024-07-06] MEDS: Famotidine 20 MG TABLET PO (20:08)
[2024-07-06] MEDS: Doxazosin Mesylate 2 MG TABLET 4 MG PO (20:08)
[2024-07-06] MEDS: QUEtiapine Fumarate 25 MG TABLET PO (20:08)
[2024-07-06] MEDS: Sennosides 8.6 MG TABLET 17.2 MG PO (20:08)
[2024-07-06 23:36] VITALS: PULSE 70; RESP 14; O2SAT 93
[2024-07-07] VITALS (7 sets, daily range): BP systolic 114–134; BP diastolic 56–71; PULSE 67–86; RESP 16–18; TEMP 36–36.8; O2SAT 93–96
--- NOTE | 2024-07-07 01:07 | PC.NURSE ---
Patient cooperative with PO medications, took all prescribed pills as per MAR, also free water as per MD communication. HOB up. tolerated well, offered and accepted Jello, patient was fed and enjoyed it well with no swallowing issues. CPAP applied by respiratory therapist at and will continue to monitor
[2024-07-07] MEDS: Meropenem 500 MG VIAL IVPUSH ×2 (04:58→16:33)
[2024-07-07] MEDS: Omeprazole 20 MG CAPSULE.DR PO ×2 (05:42→16:33)
[2024-07-07] MEDS: oxyCODONE HCl Immed Release 5 MG TABLET PO ×2 (05:42→17:40)
[2024-07-07] MEDS: Levothyroxine Sodium 100 MCG TABLET PO (05:44)
[2024-07-07 08:29] LABS: Sodium 149 mmol/L (135-145)
[2024-07-07] MEDS: Lidocaine 4 % Patch ADH..PATCH 1 PATCH TRANSDERMA (09:16)
[2024-07-07] MEDS: polyethylene glycoL 3350 17 GM POWD.PACK PO (09:16)
[2024-07-07] MEDS: Multivitamin TABLET 1 TAB PO (09:17)
[2024-07-07] MEDS: Amiodarone HCL 200 MG TABLET PO (09:17)
[2024-07-07] MEDS: Gabapentin 100 MG CAPSULE PO ×2 (09:17→21:13)
[2024-07-07] MEDS: Ascorbic Acid 500 MG TABLET PO ×2 (09:17→21:13)
[2024-07-07] MEDS: Dextrose 5 % and 0.9 % NaCl 1,000 ML 80 ML IVCONT (09:17)
[2024-07-07] MEDS: Finasteride 5 MG TABLET PO (09:17)
[2024-07-07] MEDS: Thiamine HCL 100 MG TABLET PO (09:17)
[2024-07-07] MEDS: Ferrous Sulfate 324 MG TABLET.DR PO ×2 (09:17→21:13)
[2024-07-07] MEDS: Docusate Sodium 100 MG CAPSULE PO ×2 (09:17→21:13)
[2024-07-07] MEDS: Nystatin Powder 15 GM BOTTLE 1 APPL TOPICAL (09:36)
--- NOTE | 2024-07-07 11:28 | P.PNIM_ITS ---
Subjective Subjective Date of Service: 07/07/24 Interval History: plesantly confused Review of Systems denies any new c/o. midline leaking Physical Exam 2 Vital Signs: Vital Signs: Last Vital Signs Temp 96.8 F 07/07/24 07:26 Pulse 67 07/07/24 07:26 Resp 16 07/07/24 07:26 BP 114/57 L 07/07/24 07:26 Pulse Ox 96 07/07/24 07:26 O2 Del Method Room Air 07/07/24 07:26 O2 Flow Rate 2 06/28/24 19:22 BMI result Body Mass Index 32.4 Constitutional : interactive, not in distress Cardiovascular : no JVP, no lower extremity edema Respiratory : bilateral chest movement, not in resp distress Gastrointestinal: soft, lax, Non tender Skin : Warm, Dry Neurological : Alert & disoriented , No focal deficit Objective Data Active Medications Acetaminophen (Acetaminophen 325 Mg Tablet) 650 mg PO Q6H PRN PRN Reason: Pain, Mild (Pain Scale 1-3), fever or headache Last Admin: 07/05/24 17:05 Dose: 650 mg Documented By: ANDREIA Amiodarone HCl (Amiodarone Hcl 200 Mg Tablet) 200 mg PO DAILY [facility] Last Admin: 07/07/24 09:17 Dose: 200 mg Documented By: ANDREIA Apixaban (Apixaban 2.5 Mg Tablet) 2.5 mg PO BID [facility] Last Admin: 06/29/24 19:57 Dose: 2.5 mg Documented By: DAVID Ascorbic Acid (Ascorbic Acid 500 Mg Tablet) 500 mg PO BID [facility] Last Admin: 07/07/24 09:17 Dose: 500 mg Documented By: ANDREIA Bisacodyl (Bisacodyl 10 Mg Supp.Rect) 10 mg [place] DAILY PRN PRN Reason: Constipation Calcium Carbonate (Calcium Carbonate 750 Mg Tab.Chew) 750 mg PO Q4H PRN PRN Reason: Heartburn Docusate Sodium (Docusate Sodium 100 Mg Capsule) 100 mg PO BID [facility] Last Admin: 07/07/24 09:17 Dose: 100 mg Documented By: ANDREIA Doxazosin Mesylate (Doxazosin Mesylate 2 Mg Tablet) 4 mg PO BEDTIME [facility]; Protocol Last Admin: 07/06/24 20:08 Dose: 4 mg Documented By: JABARI Famotidine (Famotidine 20 Mg Tablet) 20 mg PO BEDTIME [facility] Last Admin: 07/06/24 20:08 Dose: 20 mg Documented By: JABARI Ferrous Sulfate (Ferrous Sulfate 324 Mg Tablet.) 324 mg PO BID [facility] Last Admin: 07/07/24 09:17 Dose: 324 mg Documented By: ANDREIA Finasteride (Finasteride 5 Mg Tablet) 5 mg PO DAILY [facility] Last Admin: 07/07/24 09:17 Dose: 5 mg Documented By: ANDREIA Gabapentin (Gabapentin 100 Mg Capsule) 100 mg PO BID [facility] Last Admin: 07/07/24 09:17 Dose: 100 mg Documented By: ANDREIA Heparin Sodium (Porcine) (Heparin Sodium,Porcine Flush 50 Units/5 Ml Syringe) 50 units IVFLUSH QSHIFT [facility] Last Admin: 07/07/24 09:15 Dose: Not Given Documented By: ANDREIA Non-Admin Reason: IV Running Dextrose/Sodium Chloride (D5ns) 1,000 mls @ 80 mls/hr IVCONT .[id number] [facility] Last Admin: 07/07/24 09:17 Dose: 80 mls/hr Documented By: ANDREIA Levothyroxine Sodium (Levothyroxine Sodium 100 Mcg Tablet) 100 mcg PO DAILY@0600 [facility] Last Admin: 07/07/24 05:44 Dose: 100 mcg Documented By: JABARI Lidocaine (Lidocaine 4 % Patch Adh..Patch) 1 patch TRANSDERMA DAILY [facility] Last Admin: 07/07/24 09:16 Dose: 1 patch Documented By: ANDREIA Magnesium Hydroxide (Milk Of Magnesia 30 Ml Oral.Susp) 30 ml PO DAILY PRN PRN Reason: Constipation Melatonin (Melatonin 3 Mg Tablet) 6 mg PO BEDTIME PRN PRN Reason: Insomnia Last Admin: 07/04/24 20:25 Dose: 6 mg Documented By: MONTRELLQC Meropenem (Meropenem 500 Mg Vial) 500 mg IVPUSH Q12H [facility] Last Admin: 07/07/24 04:58 Dose: 500 mg Documented By: JABARI Multivitamins/Vitamin C (Multivitamin Tablet) 1 tab PO DAILY [facility] Last Admin: 07/07/24 09:17 Dose: 1 tab Documented By: ANDREIA Nystatin (Nystatin Powder 15 Gm Bottle) 1 appl TOPICAL DAILY [facility]; Protocol Last Admin: 07/07/24 09:36 Dose: 1 appl Documented By: ANDREIA Omeprazole (Omeprazole 20 Mg Marcela.) 20 mg PO BID@0630,1630 [facility] Last Admin: 07/07/24 05:42 Dose: 20 mg Documented By: JABARI Oxycodone HCl (Oxycodone Hcl Immed Release 5 Mg Tablet) 5 mg PO Q6H PRN PRN Reason: Pain, Severe (Pain Scale 7-10) Last Admin: 07/07/24 05:42 Dose: 5 mg Documented By: JABARI Polyethylene Glycol (Polyethylene Glycol 3350 17 Gm Powd.Pack) 17 gm PO DAILY [facility] Last Admin: 07/07/24 09:16 Dose: 17 gm Documented By: ANDREIA Quetiapine Fumarate (Quetiapine Fumarate 25 Mg Tablet) 25 mg PO BEDTIME [facility] Last Admin: 07/06/24 20:08 Dose: 25 mg Documented By: JABARI Senna (Sennosides 8.6 Mg Tablet) 17.2 mg PO BEDTIME [facility] Last Admin: 07/06/24 20:08 Dose: 17.2 mg Documented By: JABARI Sodium Chloride (0.9 % Sodium Chloride Flush 3 Ml Syringe) 3 ml IVFLUSH QSHIFT [facility] Last Admin: 07/07/24 09:15 Dose: Not Given Documented By: ANDREIA Non-Admin Reason: IV Running Thiamine HCl (Thiamine Hcl 100 Mg Tablet) 100 mg PO DAILY [facility] Last Admin: 07/07/24 09:17 Dose: 100 mg Documented By: ANDREIA Labs 07/02/24 05:29 07/07/24 08:04 Assessment and Plan (1) Bilateral hydronephrosis: Status: Acute (2) History of ESBL E. coli infection: Status: Acute (3) Acute UTI: Status: Acute (4) PRABHU (acute kidney injury): Status: Acute Plan 84M PMH pafib, hfref, htn, CKD III, GALLITO, prolonged hospitalizations at [facility] [place] 02/2024 for aspiration pneumonia discharged to LTAC with tracheostomy and PEG, now at [place], trache removed, eating by mouth, sent by [place] for ESBL Acute urinary tract infection due to ESBL Klebsiella complicated with bacteremia IV meropenem, ID appreciated, will need 14 day total merem/ertapenem end jul 10, 2024 s/p midline placement 07/01/24, reported leaking from it PICC line placed today unspecified dementia with acute delrium freuent reorient PRABHU on CKD 3 obstructive + hypovoelmic, cta/p with bilateral hydro desai placed, improving Cr level Urology input appreciated -repeat CT on 06/30 persistent Left sided hydro despite desai, Right sided improved. mild hypernatremia - added d5ns moniter sodium closely acute on chronic anemia multifactorial chronic blood loss, inflammatory, dilutional holding eliquis, ppi, gi appreciated - conservative therapy for now, ?outpatient scope, transfused 1 unit prbc and hgb improved, monitor Paroxysmal atrial fibrillation eliquis on hold for possible bleed, amio hypothyroid synthroid Chronic systolic CHF euvolemic DVT prophylaxis - mechanical due to anemia DNR, not DNI reason for continued hospitalization: Hydronephrosis, PRABHU . pt is recommending [facility] care Quality Stroke Does the patient have a stroke diagnosis?: No VTE Prior VTE?: No VTE Risk Level:: Medical - moderate - high VTE Device Contraindication: Treatment Not Indicated VTE Drug Contraindication: N/A - Med Ordered
--- NOTE | 2024-07-07 12:33 | PC.NURSE ---
midline to RUE leaking and arm appears to be swollen. Pt c/o tenderness to upper arm when palpated. IVF stopped, Dr Barnard notified. Peripheral IV access obtained. Dr barnard in to evaluate midline site, will put order in for dc midline
--- NOTE | 2024-07-07 12:50 | PC.NURSE ---
Pt staff fed banana, ensure for breakfast
--- NOTE | 2024-07-07 14:11 | PC.NURSE ---
Lunch- bite rice, banana pudding, cup cranberry juice, 2 ensures. Tolerated well. Denies wanting chicken or more rice. Patient resting comfortably now.
[2024-07-07] MEDS: Dextrose 5 % 1,000 ML 50 ML IVCONT (17:33)
--- NOTE | 2024-07-07 18:40 | PC.NURSE ---
Dinner- Patient had few bites of pot roast and mashed potatoes, did not want anymore after that. Patient also had 1 cup of apple juice, 120ml water, and banana pudding. Tolerated well. To have ensure later.
[2024-07-07] MEDS: QUEtiapine Fumarate 25 MG TABLET PO (21:13)
[2024-07-07] MEDS: Sennosides 8.6 MG TABLET 17.2 MG PO (21:13)
[2024-07-07] MEDS: Famotidine 20 MG TABLET PO (21:13)
[2024-07-07] MEDS: Doxazosin Mesylate 2 MG TABLET 4 MG PO (21:14)
--- NOTE | 2024-07-07 23:02 | PC.NURSE ---
Patient drank 250 mls water with bedtime medications
[2024-07-08 03:02] VITALS: BP 117/58; PULSE 77; RESP 16; TEMP 36.9; O2SAT 92
[2024-07-08] MEDS: Meropenem 500 MG VIAL IVPUSH ×2 (05:40→16:43)
[2024-07-08] MEDS: Omeprazole 20 MG CAPSULE.DR PO ×2 (05:41→16:43)
[2024-07-08] MEDS: Levothyroxine Sodium 100 MCG TABLET PO (05:48)
[2024-07-08 07:03] LABS: Sodium 145 mmol/L (135-145)
[2024-07-08 07:11] VITALS: BP 131/60; PULSE 83; RESP 12; TEMP 36.3; O2SAT 93
[2024-07-08] MEDS: Finasteride 5 MG TABLET PO (07:52)
[2024-07-08] MEDS: oxyCODONE HCl Immed Release 5 MG TABLET PO ×2 (07:52→19:57)
[2024-07-08] MEDS: Docusate Sodium 100 MG CAPSULE PO ×2 (07:52→19:56)
[2024-07-08] MEDS: Amiodarone HCL 200 MG TABLET PO (07:52)
[2024-07-08] MEDS: polyethylene glycoL 3350 17 GM POWD.PACK PO (07:52)
[2024-07-08] MEDS: Ferrous Sulfate 324 MG TABLET.DR PO ×2 (07:53→19:57)
[2024-07-08] MEDS: Gabapentin 100 MG CAPSULE PO ×2 (07:53→19:57)
[2024-07-08] MEDS: Thiamine HCL 100 MG TABLET PO (07:53)
[2024-07-08] MEDS: Multivitamin TABLET 1 TAB PO (07:53)
[2024-07-08] MEDS: Ascorbic Acid 500 MG TABLET PO ×2 (07:53→19:56)
[2024-07-08] MEDS: Lidocaine 4 % Patch ADH..PATCH 1 PATCH TRANSDERMA (07:53)
[2024-07-08] MEDS: Nystatin Powder 15 GM BOTTLE 1 APPL TOPICAL (07:54)
--- NOTE | 2024-07-08 11:46 | HO.PM.IMPN ---
Subjective Subjective Date of Service: 07/08/24 Interval History: plesantly confused Review of Systems denies any new c/o. midline takne out due to leaking Physical Exam Vital Signs: Vital Signs: Last Vital Signs Temp 97.4 F 07/08/24 07:11 Pulse 83 07/08/24 07:11 Resp 12 07/08/24 07:11 BP 131/60 07/08/24 07:11 Pulse Ox 93 07/08/24 07:11 O2 Del Method Room Air 07/08/24 07:11 O2 Flow Rate 2 06/28/24 19:22 BMI result Body Mass Index 32.4 Constitutional : interactive, not in distress Cardiovascular : no JVP, no lower extremity edema Respiratory : bilateral chest movement, not in resp distress Gastrointestinal: soft, lax, Non tender Skin : Warm, Dry Neurological : Alert & disoriented , No focal deficit Objective Data Active Medications Acetaminophen (Acetaminophen 325 Mg Tablet) 650 mg PO Q6H PRN PRN Reason: Pain, Mild (Pain Scale 1-3), fever or headache Last Admin: 07/05/24 17:05 Dose: 650 mg Documented By: ANDREIA Amiodarone HCl (Amiodarone Hcl 200 Mg Tablet) 200 mg PO DAILY [facility] Last Admin: 07/08/24 07:52 Dose: 200 mg Documented By: KERA Apixaban (Apixaban 2.5 Mg Tablet) 2.5 mg PO BID [facility] Last Admin: 06/29/24 19:57 Dose: 2.5 mg Documented By: DAVID Ascorbic Acid (Ascorbic Acid 500 Mg Tablet) 500 mg PO BID [facility] Last Admin: 07/08/24 07:53 Dose: 500 mg Documented By: KERA Bisacodyl (Bisacodyl 10 Mg Supp.Rect) 10 mg [place] DAILY PRN PRN Reason: Constipation Calcium Carbonate (Calcium Carbonate 750 Mg Tab.Chew) 750 mg PO Q4H PRN PRN Reason: Heartburn Docusate Sodium (Docusate Sodium 100 Mg Capsule) 100 mg PO BID [facility] Last Admin: 07/08/24 07:52 Dose: 100 mg Documented By: KERA Doxazosin Mesylate (Doxazosin Mesylate 2 Mg Tablet) 4 mg PO BEDTIME [facility]; Protocol Last Admin: 07/07/24 21:14 Dose: 4 mg Documented By: ADEOLA Famotidine (Famotidine 20 Mg Tablet) 20 mg PO BEDTIME [facility] Last Admin: 07/07/24 21:13 Dose: 20 mg Documented By: ADEOLA Ferrous Sulfate (Ferrous Sulfate 324 Mg Tablet.) 324 mg PO BID [facility] Last Admin: 07/08/24 07:53 Dose: 324 mg Documented By: KERA Finasteride (Finasteride 5 Mg Tablet) 5 mg PO DAILY [facility] Last Admin: 07/08/24 07:52 Dose: 5 mg Documented By: KERA Gabapentin (Gabapentin 100 Mg Capsule) 100 mg PO BID [facility] Last Admin: 07/08/24 07:53 Dose: 100 mg Documented By: KERA Heparin Sodium (Porcine) (Heparin Sodium,Porcine Flush 50 Units/5 Ml Syringe) 50 units IVFLUSH QSHIFT [facility] Last Admin: 07/08/24 07:52 Dose: Not Given Documented By: KERA Non-Admin Reason: no midline Levothyroxine Sodium (Levothyroxine Sodium 100 Mcg Tablet) 100 mcg PO DAILY@0600 [facility] Last Admin: 07/08/24 05:48 Dose: 100 mcg Documented By: CASIMIRO Lidocaine (Lidocaine 4 % Patch Adh..Patch) 1 patch TRANSDERMA DAILY [facility] Last Admin: 07/08/24 07:53 Dose: 1 patch Documented By: EKRA Magnesium Hydroxide (Milk Of Magnesia 30 Ml Oral.Susp) 30 ml PO DAILY PRN PRN Reason: Constipation Melatonin (Melatonin 3 Mg Tablet) 6 mg PO BEDTIME PRN PRN Reason: Insomnia Last Admin: 07/04/24 20:25 Dose: 6 mg Documented By: MONTRELLQC Meropenem (Meropenem 500 Mg Vial) 500 mg IVPUSH Q12H [facility] Last Admin: 07/08/24 05:40 Dose: 500 mg Documented By: CASIMIRO Multivitamins/Vitamin C (Multivitamin Tablet) 1 tab PO DAILY [facility] Last Admin: 07/08/24 07:53 Dose: 1 tab Documented By: KERA Nystatin (Nystatin Powder 15 Gm Bottle) 1 appl TOPICAL DAILY [facility]; Protocol Last Admin: 07/08/24 07:54 Dose: 1 appl Documented By: KERA Omeprazole (Omeprazole 20 Mg Capsule.) 20 mg PO BID@0630,1630 [facility] Last Admin: 07/08/24 05:41 Dose: 20 mg Documented By: CASIMIRO Oxycodone HCl (Oxycodone Hcl Immed Release 5 Mg Tablet) 5 mg PO Q6H PRN PRN Reason: Pain, Severe (Pain Scale 7-10) Last Admin: 07/08/24 07:52 Dose: 5 mg Documented By: KERA Polyethylene Glycol (Polyethylene Glycol 3350 17 Gm Powd.Pack) 17 gm PO DAILY [facility] Last Admin: 07/08/24 07:52 Dose: 17 gm Documented By: KERA Quetiapine Fumarate (Quetiapine Fumarate 25 Mg Tablet) 25 mg PO BEDTIME [facility] Last Admin: 07/07/24 21:13 Dose: 25 mg Documented By: ADEOLA Senna (Sennosides 8.6 Mg Tablet) 17.2 mg PO BEDTIME [facility] Last Admin: 07/07/24 21:13 Dose: 17.2 mg Documented By: ADEOLA Sodium Chloride (0.9 % Sodium Chloride Flush 3 Ml Syringe) 3 ml IVFLUSH QSHIFT [facility] Last Admin: 07/08/24 07:51 Dose: Not Given Documented By: KERA Non-Admin Reason: IV Running Thiamine HCl (Thiamine Hcl 100 Mg Tablet) 100 mg PO DAILY [facility] Last Admin: 07/08/24 07:53 Dose: 100 mg Documented By: KERA Labs 07/02/24 05:29 07/08/24 05:27 Labs: Laboratory Results - last 24 hr 07/08/24 05:27 Hold Purple Top SEE NOTE Assessment and Plan (1) Bilateral hydronephrosis: Status: Acute (2) History of ESBL E. coli infection: Status: Acute (3) Acute UTI: Status: Acute (4) PRABHU (acute kidney injury): Status: Acute Plan 84M PMH pafib, hfref, htn, CKD III, GALLITO, prolonged hospitalizations at [facility] 02/2024 for aspiration pneumonia discharged to LTAC with tracheostomy and PEG, now at [place], trache removed, eating by mouth, sent by [place] for ESBL Acute urinary tract infection due to ESBL Klebsiella complicated with bacteremia IV meropenem, ID appreciated, will need 14 day total merem/ertapenem end jul 10, 2024 s/p midline placement 07/01/24, reported leaking from it PICC line placed today unspecified dementia with acute delrium freuent reorient PRABHU on CKD 3 obstructive + hypovoelmic, cta/p with bilateral hydro desai placed, improving Cr level Urology input appreciated -repeat CT on 06/30 persistent Left sided hydro despite desai, Right sided improved. mild hypernatremia - improved with fluids po hydration acute on chronic anemia multifactorial chronic blood loss, inflammatory, dilutional holding eliquis, ppi, gi appreciated - conservative therapy for now, ?outpatient scope, transfused 1 unit prbc and hgb improved, monitor Paroxysmal atrial fibrillation eliquis on hold for possible bleed, amio hypothyroid synthroid Chronic systolic CHF euvolemic DVT prophylaxis - mechanical due to anemia DNR, not DNI reason for continued hospitalization: Hydronephrosis, PRABHU . pt is recommending halfway care Quality Stroke Does the patient have a stroke diagnosis?: No VTE Prior VTE?: No VTE Risk Level:: Medical - moderate - high VTE Device Contraindication: Treatment Not Indicated VTE Drug Contraindication: N/A - Med Ordered
--- NOTE | 2024-07-08 14:02 | PC.NURSE ---
Pt ate oatmeal, yogurt and whole banana for breakfast. Drank 120 ml orange juice, and at 11am 240 ml ensure. Refused lunch
--- NOTE | 2024-07-08 14:14 | MHC.CLN ---
F/U PT WITH INCREASED NUTRITION RISK R/T PRESSURE INJURY PO INTAKE VARIABLE, 0-50% REGULAR DIET-APPROPRIATE ENSURE TID PROVIDES 1050 KCALS, 60 G PROTEIN WITH 100% ACCEPTANCE PT HAS PEG TUBE NOT IN USE IF TF NEEDED FOR NUTRITION; RECOMMEND START PROMOTE TF AT 20ML/HR CONTINUE TO MONITOR PO INTAKE AND ENCOURAGE SUPPLEMENTS
[2024-07-08 15:41] VITALS: BP 132/62; PULSE 86; RESP 18; TEMP 37.3; O2SAT 95
[2024-07-08] MEDS: 0.9 % Sodium Chloride Flush 3 ML SYRINGE IVFLUSH ×2 (16:44→19:58)
--- NOTE | 2024-07-08 18:15 | PC.NURSE ---
Evening meal pt had 25% ice cream and 25% yogurt
[2024-07-08 19:35] VITALS: BP 139/63; PULSE 79; RESP 18; TEMP 37; O2SAT 93
[2024-07-08] MEDS: Doxazosin Mesylate 2 MG TABLET 4 MG PO (19:56)
[2024-07-08] MEDS: QUEtiapine Fumarate 25 MG TABLET PO (19:56)
[2024-07-08] MEDS: Sennosides 8.6 MG TABLET 17.2 MG PO (19:57)
[2024-07-08] MEDS: Famotidine 20 MG TABLET PO (19:57)
[2024-07-08 22:47] VITALS: PULSE 76; RESP 17; O2SAT 93
[2024-07-09 04:00] VITALS: BP 117/58; PULSE 70; RESP 18; TEMP 36.8; O2SAT 97
[2024-07-09 04:20] VITALS: RESP 14
[2024-07-09] MEDS: Omeprazole 20 MG CAPSULE.DR PO ×2 (05:45→17:53)
[2024-07-09] MEDS: Levothyroxine Sodium 100 MCG TABLET PO (05:45)
[2024-07-09] MEDS: Meropenem 500 MG VIAL IVPUSH ×2 (05:45→17:52)
[2024-07-09 07:10] VITALS: BP 133/60; PULSE 81; RESP 12; TEMP 37.1; O2SAT 95
[2024-07-09] MEDS: Lidocaine 4 % Patch ADH..PATCH 1 PATCH TRANSDERMA (08:02)
[2024-07-09] MEDS: 0.9 % Sodium Chloride Flush 3 ML SYRINGE IVFLUSH ×3 (08:07→20:25)
[2024-07-09] MEDS: Ascorbic Acid 500 MG TABLET PO ×2 (08:08→20:24)
[2024-07-09] MEDS: Amiodarone HCL 200 MG TABLET PO (08:08)
[2024-07-09] MEDS: Finasteride 5 MG TABLET PO (08:08)
[2024-07-09] MEDS: Ferrous Sulfate 324 MG TABLET.DR PO ×2 (08:08→20:25)
[2024-07-09] MEDS: Docusate Sodium 100 MG CAPSULE PO ×2 (08:08→20:24)
[2024-07-09] MEDS: Gabapentin 100 MG CAPSULE PO ×2 (08:09→20:24)
[2024-07-09] MEDS: Thiamine HCL 100 MG TABLET PO (08:10)
[2024-07-09] MEDS: Multivitamin TABLET 1 TAB PO (08:10)
[2024-07-09] MEDS: oxyCODONE HCl Immed Release 5 MG TABLET PO ×2 (08:10→17:53)
[2024-07-09] MEDS: polyethylene glycoL 3350 17 GM POWD.PACK PO (08:11)
--- NOTE | 2024-07-09 08:36 | P.PNIM_ITS ---
Subjective Subjective Date of Service: 07/09/24 Interval History: baseline confusion no new issues Physical Exam 2 Vital Signs: Vital Signs: Last Vital Signs Temp 98.7 F 07/09/24 07:10 Pulse 81 07/09/24 07:10 Resp 12 07/09/24 07:10 BP 133/60 07/09/24 07:10 Pulse Ox 95 07/09/24 07:10 O2 Del Method Room Air 07/09/24 07:10 O2 Flow Rate 2 06/28/24 19:22 BMI result Body Mass Index 32.4 General: Oriented to self, no distress Resp: CTA bilateral CVS: S1,S2,RRR GI: +BS, NT, no distention Skin: pressure decub ulcer previously noted in wound care note Neuro: motor grossly intact Psych: appropriate affect Objective Data Active Medications Acetaminophen (Acetaminophen 325 Mg Tablet) 650 mg PO Q6H PRN PRN Reason: Pain, Mild (Pain Scale 1-3), fever or headache Last Admin: 07/05/24 17:05 Dose: 650 mg Documented By: ANDREIA Amiodarone HCl (Amiodarone Hcl 200 Mg Tablet) 200 mg PO DAILY [facility] Last Admin: 07/09/24 08:08 Dose: 200 mg Documented By: GABI Apixaban (Apixaban 2.5 Mg Tablet) 2.5 mg PO BID [facility] Last Admin: 06/29/24 19:57 Dose: 2.5 mg Documented By: DAVID Ascorbic Acid (Ascorbic Acid 500 Mg Tablet) 500 mg PO BID [facility] Last Admin: 07/09/24 08:08 Dose: 500 mg Documented By: GABI Bisacodyl (Bisacodyl 10 Mg Supp.Rect) 10 mg AR DAILY PRN PRN Reason: Constipation Calcium Carbonate (Calcium Carbonate 750 Mg Tab.Chew) 750 mg PO Q4H PRN PRN Reason: Heartburn Docusate Sodium (Docusate Sodium 100 Mg Capsule) 100 mg PO BID [facility] Last Admin: 07/09/24 08:08 Dose: 100 mg Documented By: GABI Doxazosin Mesylate (Doxazosin Mesylate 2 Mg Tablet) 4 mg PO BEDTIME [facility]; Protocol Last Admin: 07/08/24 19:56 Dose: 4 mg Documented By: QASIMRISAda Famotidine (Famotidine 20 Mg Tablet) 20 mg PO BEDTIME [facility] Last Admin: 07/08/24 19:57 Dose: 20 mg Documented By: NUZHAT Ferrous Sulfate (Ferrous Sulfate 324 Mg Tablet.) 324 mg PO BID [facility] Last Admin: 07/09/24 08:08 Dose: 324 mg Documented By: GABI Finasteride (Finasteride 5 Mg Tablet) 5 mg PO DAILY [facility] Last Admin: 07/09/24 08:08 Dose: 5 mg Documented By: GABI Gabapentin (Gabapentin 100 Mg Capsule) 100 mg PO BID [facility] Last Admin: 07/09/24 08:09 Dose: 100 mg Documented By: GABI Heparin Sodium (Porcine) (Heparin Sodium,Porcine Flush 50 Units/5 Ml Syringe) [facility] Last Admin: 07/09/24 08:07 Dose: Not Given Documented By: GABI Non-Admin Reason: midline was removed Levothyroxine Sodium (Levothyroxine Sodium 100 Mcg Tablet) 100 mcg PO DAILY@0600 [facility] Last Admin: 07/09/24 05:45 Dose: 100 mcg Documented By: NUZHAT Lidocaine (Lidocaine 4 % Patch Adh..Patch) 1 patch TRANSDERMA DAILY [facility] Last Admin: 07/09/24 08:02 Dose: 1 patch Documented By: GABI Magnesium Hydroxide (Milk Of Magnesia 30 Ml Oral.Susp) 30 ml PO DAILY PRN PRN Reason: Constipation Melatonin (Melatonin 3 Mg Tablet) 6 mg PO BEDTIME PRN PRN Reason: Insomnia Last Admin: 07/04/24 20:25 Dose: 6 mg Documented By: RUTH Meropenem (Meropenem 500 Mg Vial) 500 mg IVPUSH Q12H [facility] Last Admin: 07/09/24 05:45 Dose: 500 mg Documented By: NUZHAT Multivitamins/Vitamin C (Multivitamin Tablet) 1 tab PO DAILY [facility] Last Admin: 07/09/24 08:10 Dose: 1 tab Documented By: GABI Nystatin (Nystatin Powder 15 Gm Bottle) 1 appl TOPICAL DAILY [facility]; Protocol Last Admin: 07/08/24 07:54 Dose: 1 appl Documented By: KERA Omeprazole (Omeprazole 20 Mg Capsule.) 20 mg PO BID@0630,1630 [facility] Last Admin: 07/09/24 05:45 Dose: 20 mg Documented By: NUZHAT Oxycodone HCl (Oxycodone Hcl Immed Release 5 Mg Tablet) 5 mg PO Q6H PRN PRN Reason: Pain, Severe (Pain Scale 7-10) Last Admin: 07/09/24 08:10 Dose: 5 mg Documented By: GABI Polyethylene Glycol (Polyethylene Glycol 3350 17 Gm Powd.Pack) 17 gm PO DAILY [facility] Last Admin: 07/09/24 08:11 Dose: 17 gm Documented By: GABI Quetiapine Fumarate (Quetiapine Fumarate 25 Mg Tablet) 25 mg PO BEDTIME [facility] Last Admin: 07/08/24 19:56 Dose: 25 mg Documented By: NUZHAT Senna (Sennosides 8.6 Mg Tablet) 17.2 mg PO BEDTIME [facility] Last Admin: 07/08/24 19:57 Dose: 17.2 mg Documented By: NUZHAT Sodium Chloride (0.9 % Sodium Chloride Flush 3 Ml Syringe) 3 ml IVFLUSH QSHIFT [facility] Last Admin: 07/09/24 08:07 Dose: 3 ml Documented By: GABI Thiamine HCl (Thiamine Hcl 100 Mg Tablet) 100 mg PO DAILY [facility] Last Admin: 07/09/24 08:10 Dose: 100 mg Documented By: GABI Labs 07/02/24 05:29 07/08/24 05:27 Assessment and Plan (1) Bilateral hydronephrosis: Status: Acute (2) History of ESBL E. coli infection: Status: Acute (3) Acute UTI: Status: Acute (4) PRABHU (acute kidney injury): Status: Acute Plan 84M PMH pafib, hfref, htn, CKD III, GALLITO, prolonged hospitalizations at [facility] 02/2024 for aspiration pneumonia discharged to LTAC with tracheostomy and PEG, now at [facility], trache removed, eating by mouth, sent by [facility] for ESBL Acute urinary tract infection due to ESBL Klebsiella complicated with bacteremia ID recommend 14 days of Meropenem or Ertapenem, ending July 10, 2024 unspecified dementia, with delirium now resolved frequent reorient PRABHU on CKD 3 d/t obstructive uropathy, chaya hydro Cr improved with Desai, Righ hydro improved with desai on repeat ct no intervention by uro mild hypernatremia - resolved encourage oral water acute on chronic anemia multifactorial chronic blood loss, inflammatory, dilutional eliquis has been on hold pending further eval by Gi on outpatient basis. continue PPI repeat H/H if stable, consider add heparin at least dvt prophylaxis dose Paroxysmal atrial fibrillation eliquis on hold d/t anemia suspect gib bleeding with signficant blood loss and needing transfusion, he at significant risk of stroke in the absence of anticoagulation hypothyroid synthroid Chronic systolic CHF euvolemic Decub ulcer/prevention--turning per protocol DVT prophylaxis - mechanical due to anemia, consider heparin if H/H is stable. DNR, not DNI reason for continued hospitalization: Hydronephrosis, PRABHU . pt is recommending [facility] care Quality Stroke Does the patient have a stroke diagnosis?: No VTE Prior VTE?: No VTE Risk Level:: Medical - moderate - high VTE Device Contraindication: Treatment Not Indicated VTE Drug Contraindication: N/A - Med Ordered
[2024-07-09 09:10] LABS: Hemoglobin 8.3 g/dl (14.0-18.0); Mean Corpuscular HGB Conc 30.7 g/dl (31.0-36.0); Mean Corpuscular Hemoglobin 26.5 pg (27.0-33.0); Mean Corpuscular Volume 86.3 fL (80.0-98.0); Mean Platelet Volume 9.5 fL (9.4-12.4); Platelet Count 189 X10*3/uL (160-400); Red Blood Count 3.13 X10*6/uL (4.60-5.80); Red Cell Distribution Width 18.9 % (11.0-16.0); White Blood Count 8.4 X10*3/uL (4.8-10.8)
[2024-07-09] MEDS: Nystatin Powder 15 GM BOTTLE 1 APPL TOPICAL (11:41)
[2024-07-09 15:22] VITALS: BP 126/60; PULSE 76; RESP 18; TEMP 36.9; O2SAT 93
[2024-07-09 19:08] VITALS: BP 123/60; PULSE 82; RESP 18; TEMP 36.8; O2SAT 95
[2024-07-09] MEDS: Sennosides 8.6 MG TABLET 17.2 MG PO (20:24)
[2024-07-09] MEDS: QUEtiapine Fumarate 25 MG TABLET PO (20:24)
[2024-07-09] MEDS: Doxazosin Mesylate 2 MG TABLET 4 MG PO (20:25)
[2024-07-10] VITALS: RESP 10
[2024-07-10 03:16] VITALS: BP 135/59; PULSE 89; RESP 20; TEMP 37.2; O2SAT 93
[2024-07-10] MEDS: Omeprazole 20 MG CAPSULE.DR PO (05:40)
[2024-07-10] MEDS: Levothyroxine Sodium 100 MCG TABLET PO (05:40)
[2024-07-10] MEDS: Meropenem 500 MG VIAL IVPUSH (05:40)
[2024-07-10 07:33] VITALS: BP 114/55; PULSE 77; RESP 18; TEMP 36.8; O2SAT 92
--- NOTE | 2024-07-10 08:11 | P.DS_ITS ---
DS: Providers Provider Date of Service: 07/10/24 Date of admission: 06/26/24 16:12 Date of discharge: 07/10/24 Primary care physician: Zak Zuluaga MD Consults: 06/26/24 16:20 Consult to Infectious Diseases Routine Consulting Provider: [facility] Reason for consultation: esbl in urine 06/26/24 20:34 Consult to Wound Care Routine Reason for consultation: stage II to coccyx, redness to bilateral toes. 06/27/24 06:55 Consult to Urology Routine Consulting Provider: [facility] Reason for consultation: bialteral hydro 06/30/24 07:20 Consult to Gastroenterology Routine Consulting Provider: Franco Arzola Reason for consultation: iron deficiency anemia, on eliquis 07/01/24 02:14 Consult to Wound Care Routine Reason for consultation: stage II to coccyx, redness to bilateral toes. 07/01/24 08:17 Consult to Nephrology Routine Consulting Provider: [facility] Reason for consultation: midline vs ragsdale in patient with CKD 07/04/24 11:23 Consult to Wound Care Routine Reason for consultation: Reevaluate st 2 on coocyx Has provider been notified: No DS: Diagnosis Discharge Diagnosis (1) Bilateral hydronephrosis: Status: Acute (2) History of ESBL E. coli infection: Status: Acute (3) Acute UTI: Status: Acute (4) PRABHU (acute kidney injury): Status: Acute DS: Summary Hospital Course Hospital Course: From initial hpi: 84M PMH pafib, hfref, htn, CKD III, GALLITO, prolonged hospitalizations at [facility] 02/2024 for aspiration pneumonia discharged to LTAC with tracheostomy and PEG, now at [facility], trache removed, eating by mouth, sent by [facility] for ESBL ecoli and klebsiella in urine culture, sensitive to IV meds only. Patient unclear why UA was checked. Denies dysuria, fever, urinary frequency. Hospital course: The patient was admitted for an acute urinary tract infection caused by ESBL Klebsiella, complicated by bacteremia. He was treated with IV meropenem, and Infectious Disease recommended a 14-day course. A midline catheter was placed, and he as completed the antibiotic course with meropenem ending 07/10/2024. For unspecified dementia complicated by acute delirium, the patient?s mentation improved gradually throughout the hospitalization and has returned to baseline. He is now oriented to person, place, and time, with good insight into his medical condition, though he occasionally experiences mild confusion. For acute kidney injury on CKD stage 3, likely due to a combination of obstruction and hypovolemia, CT imaging revealed bilateral hydronephrosis. A Desai catheter was placed, and Urology recommended initiating Flomax and Proscar. Repeat imaging post-Desai showed residual hydronephrosis, which is likely chronic. The Desai will remain in place, and the patient will follow up with Urology as an outpatient. The patient was also noted to have [id number] anemia, likely multifactorial (chronic blood loss, inflammation, and dilutional causes). Eliquis was held for approximately one week, and he was initially managed on a PPI. Gastroenterology recommended conservative therapy and outpatient follow-up for possible EGD and colonoscopy. The patient received 1 unit of PRBC, with appropriate improvement in hemoglobin levels. For paroxysmal atrial fibrillation, Eliquis will resume upon discharge and if has signs of bleeding should be stopped was continued on amiodarone. For hypothyroidism, he was maintained on levothyroxine. For chronic systolic heart failure, the patient remained stable during hospitalization. The patient is feeling better and will be discharged to a senior care facility Code status: DNR. Time Attestation Discharge Coordination Time (in mins): 35 Quality: Stroke Does the patient have a stroke diagnosis?: No Physical Exam Vital Signs: Vital Signs: Last Vital Signs Temp 98.3 F 07/10/24 07:33 Pulse 77 07/10/24 07:33 Resp 18 07/10/24 07:33 BP 114/55 L 07/10/24 07:33 Pulse Ox 92 07/10/24 07:33 O2 Del Method Room Air 07/10/24 07:33 O2 Flow Rate 2 06/28/24 19:22 BMI result Body Mass Index 32.4 DS: Data Data Completed and Pending Labs on day of discharge: Laboratory Results - last 24 hr 07/09/24 09:02 WBC 8.4 RBC 3.13 L Hgb 8.3 L Hct 27.0 L MCV 86.3 MCH 26.5 L MCHC 30.7 L RDW 18.9 H Plt Count 189 MPV 9.5 Absolute Nucleated RBC 0.000 Nucleated RBC % (auto) 0.0 Discharge Plan Discharge Anticipated Discharge Date/Time: 07/10/24 08:32 Patient Disposition: er [facility] Discharge Diagnosis: prabhu, bilateral hydronephrosis, ESBL uti and bacteremia, iron deficiency anemia Referrals: [facility] [Other] - 1 Week Tr Colon MD [Physician] - 1 Week Zak Zuluaga MD [Primary Care Provider] - 1 Week Discharge Medications: New omeprazole 20 mg Capsule,Delayed Release(Dr/Ec) 20 mg PO BID@0630,1630 Qty: 0 0RF finasteride 5 mg Tablet 5 mg PO DAILY Qty: 0 0RF doxazosin 2 mg Tablet 4 mg PO BEDTIME Qty: 0 0RF Protocol: Hold for SBP< HOLD for SBP < : 90 Continued polyethylene glycol 3350 17 gram Powder In Packet 17 g PO DAILY Qty: 30 0RF Rx Instructions: Hold for loose stool. multivitamin Tablet 1 tab PO DAILY quetiapine 25 mg Tablet 25 mg PO BEDTIME sennosides [senna] 8.6 mg Tablet 17.2 mg PO BEDTIME albuterol sulfate 2.5 mg /3 mL (0.083 %) Solution For Nebulization 2.5 mg INHALATION Q4H PRN (Reason: Shortness Of Breath Or Wheezing) polyvinyl alcohol 1.4 % Drops 1 drp OPHTHALMIC (EYE) Q6H PRN (Reason: Dry Eyes) thiamine HCl (vitamin B1) [Vitamin B-1] 100 mg Tablet 100 mg PO DAILY levothyroxine 100 mcg Tablet 100 mcg PO DAILY@0600 famotidine 20 mg Tablet 20 mg PO BEDTIME magnesium hydroxide [Milk of Magnesia] 400 mg/5 mL Suspension 30 ml PO DAILY PRN (Reason: Constipation) Rx Instructions: If no BM in 3 days. ascorbic acid (vitamin C) 500 mg Tablet 500 mg PO BID amlodipine 10 mg Tablet 10 mg PO DAILY bisacodyl 10 mg Suppository 10 mg CO DAILY PRN (Reason: Constipation) Rx Instructions: If MoM not effective. ferrous sulfate 325 mg (65 mg iron) Tablet 325 mg PO BID lidocaine [Lidoderm] 5 % Adhesive Patch,Medicated 1 patch TOPICAL DAILY Rx Instructions: Apply to left shoulder in AM, take off at bedtime. gabapentin 100 mg Capsule 100 mg PO BID sodium phosphates Solution 15 ml PO Q2H PRN (Reason: Constipation) Rx Instructions: for 3 doses docusate sodium 100 mg Tablet 100 mg PO BID Lactobacillus acidophilus 1 billion cell Tablet 1,000 mmu cells PO BID melatonin 5 mg Tablet 10 mg PO BEDTIME acetaminophen 325 mg tablet 975 mg PO Q6H PRN (Reason: Pain/Fever) amiodarone 200 mg tablet 200 mg PO DAILY nystatin 100,000 unit/gram Powder 1 appl TOPICAL DAILY Rx Instructions: Apply to Groin. Held Eliquis 5 mg Tablet 2.5 mg PO BID Hold Instructions: Resume on 07/07/24. Discharge Orders: Discharge Order (Routine); Ordered 07/10/24 Ordered By: Dami Jimenez Diet: Advance to usual diet Activity on Discharge: As tolerated Stand Alone Forms: Patient Portal Discharge page Print Language: Rw[place]an Care Plan Goals: recovery Health Concerns: Urinary retention, ESBL bacteremia, anemia, acute kidney injury Plan of Treatment: has completed antibiotics thereapy with e ertapenem on 07/10/2024, continue desai catheter, continue Flomax and Proscar and follow up with Urology, continue PPI, follow up with Gastroenterology resume eliquis upon discharge Assessment: see above
--- NOTE | 2024-07-10 09:15 | MHC.CLN ---
F/U CONTINUES WITH VARIABLE INTAKE, USUALLY 25% OR LESS. REGULAR DIET-APPROPRIATE ENSURE TID PROVIDES 1050 KCALS, 60 G PROTEIN WITH 100% ACCEPTANCE PT HAS PEG TUBE NOT IN USE IF TF NEEDED FOR NUTRITION; RECOMMEND START PROMOTE TF AT 20ML/HR CONTINUE TO MONITOR PO INTAKE AND ENCOURAGE SUPPLEMENTS
--- NOTE | 2024-07-10 10:01 | MHC.CM.PN ---
pt being dcd today at 5:30 [facility]
[2024-07-10] MEDS: Multivitamin TABLET 1 TAB PO (10:56)
[2024-07-10] MEDS: Thiamine HCL 100 MG TABLET PO (10:56)
[2024-07-10] MEDS: Gabapentin 100 MG CAPSULE PO (10:56)
[2024-07-10] MEDS: Ferrous Sulfate 324 MG TABLET.DR PO (10:56)
[2024-07-10] MEDS: Docusate Sodium 100 MG CAPSULE PO (10:56)
[2024-07-10] MEDS: Ascorbic Acid 500 MG TABLET PO (10:56)
[2024-07-10] MEDS: polyethylene glycoL 3350 17 GM POWD.PACK PO (10:57)
[2024-07-10] MEDS: Finasteride 5 MG TABLET PO (10:57)
[2024-07-10] MEDS: Lidocaine 4 % Patch ADH..PATCH 1 PATCH TRANSDERMA (10:58)
[2024-07-10] MEDS: Nystatin Powder 15 GM BOTTLE 1 APPL TOPICAL (10:58)
[2024-07-10] MEDS: 0.9 % Sodium Chloride Flush 3 ML SYRINGE IVFLUSH (11:00)
[2024-07-10] MEDS: Amiodarone HCL 200 MG TABLET PO (11:06)
[2024-07-10] MEDS: Ertapenem Sodium 1 GM VIAL IVPUSH (13:24)
[2024-07-10 13:33] VITALS: BP 116/56; PULSE 78; RESP 18; TEMP 36.4; O2SAT 94
--- NOTE | 2024-07-10 14:07 | PC.NURSE ---
Pt discharged via EMS without incident. Jamison remains in place and is draining cyu. Soft care Waffle chair cushion applied to stretcher for transport. foam dsgs intact to heels and sacral wounds. Heel protector boots remain in place for transport. [facility] and they deny quesions at this time.
== END 2024-07-10 14:05 | disposition skilled nursing facility (03) | DRG 690 ==
LOC: HO.ED 15:53 → HO.EDOVER 16:17 → HO.S3 19:12
PROVIDERS: Internal Medicine; Physician Assistant Medical; Admitting Provider Internal Medicine; Emergency Provider Emergency Medicine; PCP Family Medicine Geriatric Medicine; Visit Provider Internal Medicine
DX: N13.6 Pyonephrosis (principal); I13.0 Hypertensive heart and chronic kidney disease with heart failure and stage 1 through stage 4 chronic kidney disease, or unspecified chronic kidney disease; I50.22 Chronic systolic (congestive) heart failure; Z16.12 Extended spectrum beta lactamase (ESBL) resistance; R78.81 Bacteremia; F05 Delirium due to known physiological condition; E87.0 Hyperosmolality and hypernatremia; Z66 Do not resuscitate; N18.30 Chronic kidney disease, stage 3 unspecified; D50.0 Iron deficiency anemia secondary to blood loss (chronic); F03.90 Unspecified dementia, unspecified severity, without behavioral disturbance, psychotic disturbance, mood disturbance, and anxiety; B96.1 Klebsiella pneumoniae [K. pneumoniae] as the cause of diseases classified elsewhere; I25.10 Atherosclerotic heart disease of native coronary artery without angina pectoris; D63.1 Anemia in chronic kidney disease; E86.1 Hypovolemia; I48.0 Paroxysmal atrial fibrillation; N17.9 Acute kidney failure, unspecified; G47.33 Obstructive sleep apnea (adult) (pediatric); E03.9 Hypothyroidism, unspecified; Z87.440 Personal history of urinary (tract) infections; Z79.01 Long term (current) use of anticoagulants; Z79.890 Hormone replacement therapy; Z79.899 Other long term (current) drug therapy
CPT/HCPCS: 36410; 36415; 36580; 74176; 76775; 80048; 80053; 80076; 81001; 83605; 83735; 84295; 85025; 85027; 86850; 86900; 86901; 86923; 87040; 87077; 87086; 87088; 87186; 87205; 94660; 97162; 99285; C1751; C1758; J1335; J1642; J2185; P9016

== ENCOUNTER → 2024-06-26 16:12 | Outpatient (BNV) | payer MEDICARE, SELFPAY | PROVIDERS: Admitting Provider Internal Medicine; Emergency Provider Emergency Medicine; PCP Family Medicine Geriatric Medicine; Visit Provider Internal Medicine | DX: N17.9 Acute kidney failure, unspecified (principal); N13.30 Unspecified hydronephrosis; N39.0 Urinary tract infection, site not specified; Z86.19 Personal history of other infectious and parasitic diseases | CPT/HCPCS: 99223; 99231; 99232 ==

== ENCOUNTER → 2024-06-26 16:12 | Outpatient (BNV) | payer MEDICARE, SELFPAY | PROVIDERS: Admitting Provider Internal Medicine; Emergency Provider Emergency Medicine; PCP Family Medicine Geriatric Medicine; Visit Provider Internal Medicine | DX: N13.30 Unspecified hydronephrosis (principal); N39.0 Urinary tract infection, site not specified | CPT/HCPCS: 99222 ==

== ENCOUNTER → 2024-06-26 16:12 | Outpatient (BNV) | payer MEDICARE, SELFPAY | PROVIDERS: Admitting Provider Internal Medicine; Emergency Provider Emergency Medicine; PCP Family Medicine Geriatric Medicine; Visit Provider Urology | DX: N13.30 Unspecified hydronephrosis (principal); N17.9 Acute kidney failure, unspecified | CPT/HCPCS: 99222 ==

== ENCOUNTER → 2024-06-26 16:12 | Outpatient (BNV) | payer MEDICARE, SELFPAY | PROVIDERS: Admitting Provider Internal Medicine; Emergency Provider Emergency Medicine; PCP Family Medicine Geriatric Medicine; Visit Provider Internal Medicine Hypertension Specialist | DX: N17.9 Acute kidney failure, unspecified (principal); N18.9 Chronic kidney disease, unspecified | CPT/HCPCS: 99223; 99232 ==

== ENCOUNTER 2024-08-10 23:23 | Inpatient (IN) | payer MEDICARE, SELFPAY ==
--- NOTE | 2024-08-10 | ECG_ITS ---
Test Reason : AMS Blood Pressure : */* mmHG Vent. Rate : 89 BPM Atrial Rate : 89 BPM P-R Int : 104 ms QRS Dur : 78 ms QT Int : 426 ms P-R-T Axes : 41 -23 -19 degrees QTcB Int : 518 ms Artifact in tracing Probable sinus rhythm cannot exclude old Inferior infarct (cited on or before 19-Feb-2024) Abnormal ECG When compared with ECG of 29-Feb-2024 00:14, Nonspecific T wave abnormality has replaced inverted T waves in Lateral leads QT has lengthened (difficult to manually calculate) Referred By: Generic ED Physician Electronically Signed By: JOSE ENRIQUEZ
[2024-08-10 23:30] VITALS: BP 69/34; PULSE 90; O2SAT 98
[2024-08-10 23:31] VITALS: BP 111/51; PULSE 91; RESP 17; TEMP 36.9; O2SAT 98; BMI 28.5
[2024-08-10 23:44] LABS: MANUAL DIFF FLAG NO
[2024-08-10 23:49] LABS: Basophils Percent Auto 0.3 % (0-2); Eosinophils Absolute Auto 0.2 X10*3/uL (0.0-0.4); Eosinophils Percent Auto 2.3 % (0-4); Hematocrit 24.3 % (42.0-52.0); Hemoglobin 7.5 g/dl (14.0-18.0); Imm Gran Abs Auto 0.13 X10*3/uL (0.00-0.03); Imm Gran Pct Auto 1.3 % (0.0-0.4); Lymphocytes Absolute Auto 2.5 X10*3/uL (1.2-4.9); Mean Corpuscular HGB Conc 30.9 g/dl (31.0-36.0); Mean Corpuscular Hemoglobin 26.1 pg (27.0-33.0); Mean Corpuscular Volume 84.7 fL (80.0-98.0); Mean Platelet Volume 9.1 fL (9.4-12.4); Monocytes Absolute Auto 0.8 X10*3/uL (0.1-1.2); Monocytes Percent Auto 7.7 % (2-11); Neutrophils Absolute Auto 6.4 x10*3/uL (2.0-8.3); Neutrophils Percent Auto 63.4 % (45-73); Platelet Count 357 X10*3/uL (160-400); Red Blood Count 2.87 X10*6/uL (4.60-5.80); Red Cell Distribution Width 19.4 % (11.0-16.0); White Blood Count 10.1 X10*3/uL (4.8-10.8)
[2024-08-10 23:54] VITALS: BP 119/53; PULSE 87; RESP 15; TEMP 37.4; O2SAT 95
[2024-08-11] VITALS (15 sets, daily range): BP systolic 102–131; BP diastolic 38–96; PULSE 60–89; RESP 16–20; TEMP 36.1–37.1; O2SAT 94–100
[2024-08-11 00:02] LABS: INTERNATIONAL NORM RATIO 1.5 (0.9-1.1); Prothrombin Time 17.1 SEC (10.9-12.4)
[2024-08-11 00:20] LABS: Appearance Urine Turbid; Color Urine Yellow; Glucose Urine UA Negative (Negative); Nitrite Urine Negative (Negative); Specific Gravity - Urine 1.025 (1.005-1.025); UMIC TRIGGER UACC YES; Urine Blood Moderate (2+) (Negative); Urine Ketones Negative (Negative); Urine Protein 100 (2+) mg/dL (Neg-Trace)
[2024-08-11 00:22] LABS: Leukocyte Esterase Urine Large (3+) (Negative); Renal Epithelial Cells Urine Present; UACC Culture Trigger YES; WBC Urine >50 /HPF (0-5)
[2024-08-11 00:23] LABS: Bacteria Urine 4+ (None Seen)
[2024-08-11 00:35] LABS: Alanine Aminotransferase < 6 U/L (0-40); Albumin Level 2.3 g/dL (3.5-5.0); Alkaline Phosphatase 114 U/L (39-117); Anion Gap 15 (12-20); Aspartate Amino Transferase 23 U/L (5-37); Bilirubin Total 0.3 mg/dL (0.0-1.0); Blood Urea Nitrogen 33 mg/dL (9-16); Calcium 8.7 mg/dL (8.4-10.2); Carbon Dioxide 20 mmol/L (22-29); Chloride 110 mmol/L (96-108); Creatinine Clr Calc Pharmacy 35.1; Estimated Glomerular Filt Rate 33; Glucose Random 92 mg/dL (60-115); Potassium 4.1 mmol/L (3.3-5.1); Sodium 141 mmol/L (135-145)
[2024-08-11 00:37] LABS: Lactic Acid 2.3 mmol/L (0.5-2.0)
--- NOTE | 2024-08-11 00:38 | PC.NURSE ---
critical lactic recieved at this time, provider aware, no new orders.
--- NOTE | 2024-08-11 00:40 | PC.NURSE ---
late entry- pt biba from [facility], alert to self only at baseline. per pt staff, staff reports pt had decreased appetite, so staff took manual BP of 68/30, staff also reporting AMS. on arrival pt was at baseline. pt noted to have chronic desai which was draining thick urine. pt also noted to have G tube in place. pt has un stagable wound to coccyx. vss at this time. 20G placed in right wrist, labs obtained. urine sample obtained from desai port.
[2024-08-11 00:45] LABS: Influenza A PCR NEGATIVE (Negative); Influenza B PCR NEGATIVE (Negative); Resp Syncy Virus RNA Qual PCR NEGATIVE (Negative); SARS COV2 PCR INHOUSE NEGATIVE (Negative)
[2024-08-11 00:57] LABS: B Type Natriuretic Peptide 96 pg/mL (<100)
[2024-08-11 01:43] LABS: Reflex Lactate? Lactic Acid Added
--- NOTE | 2024-08-11 02:15 | ED_ITS ---
HPI - General Adult General Chief complaint: General Medical Stated complaint: HYPOTENSIVE Time Seen by Provider: 08/11/24 02:14 Source: patient Mode of arrival: EMS Limitations: altered mental status History of Present Illness ED Provider: Dr. Chris Diaz HPI narrative: 84-year-old male with a history of paroxysmal atrial fibrillation, NSTEMI, chronic renal disease, heart failure, thyroid disease, GERD, hypertension, hyperlipidemia, encephalopathy secondary to urinary tract infection with recent admission to [facility] from 06/26/2024 until 07/10/2024 for an ESBL E coli treated with meropenem who was sent to the emergency department from his nursing facility, [facility] for evaluation of a low blood pressure and change in his mental status. The patient appears to be delusional. He told me that is currently in a garage in a house that he had previously owned . He told me that he is not Ramon Atkinson but is Kramar and that I am looking at the shell of Ramon that will soon and become Kramar . He told me that he was a powerful being that is billions of years old and that he was going to create a new race of Kamarians . Related Data Home Medications ?Medication ?Instructions ?Recorded ?Confirmed acetaminophen 325 mg tablet 975 mg PO Q6H PRN Pain/Fever 06/26/24 08/11/24 albuterol sulfate 2.5 mg/3 mL 2.5 mg inhalation Q4H PRN 06/26/24 08/11/24 (0.083 %) solution for nebulization Shortness Of Breath Or Wheezing amiodarone 200 mg tablet 200 mg PO DAILY 06/26/24 08/11/24 amlodipine 10 mg tablet 10 mg PO DAILY 06/26/24 08/11/24 ascorbic acid (vitamin C) 500 mg 500 mg PO BID 06/26/24 08/11/24 tablet bisacodyl 10 mg rectal suppository 10 mg UT DAILY PRN Constipation 06/26/24 08/11/24 docusate sodium 100 mg tablet 100 mg PO BID 06/26/24 08/11/24 famotidine 20 mg tablet 20 mg PO BEDTIME 06/26/24 08/11/24 ferrous sulfate 325 mg (65 mg 325 mg PO BID 06/26/24 08/11/24 iron) tablet gabapentin 100 mg capsule 100 mg PO BID 06/26/24 08/11/24 levothyroxine 100 mcg tablet 100 mcg PO DAILY@0600 06/26/24 08/11/24 magnesium hydroxide 400 mg/5 mL 30 ml PO Q72H PRN Constipation 06/26/24 08/11/24 oral suspension (Milk of Magnesia) melatonin 5 mg tablet 10 mg PO BEDTIME 06/26/24 08/11/24 nystatin 100,000 unit/gram topical 1 appl topical BID 06/26/24 08/11/24 powder polyvinyl alcohol 1.4 % eye drops 1 drp ophthalmic (eye) Q6H PRN Dry 06/26/24 08/11/24 Eyes sennosides 8.6 mg tablet (senna) 17.2 mg PO BEDTIME 06/26/24 08/11/24 thiamine HCl (vitamin B1) 100 mg 100 mg PO DAILY 06/26/24 08/11/24 tablet (Vitamin B-1) Lactobacillus acidoph-L.bulgaricus 1 tab PO BID 08/11/24 08/11/24 1 million cell tablet Lactobacillus acidophilus 2,000 mmu cells PO BID 08/11/24 08/11/24 (Acidophilus capsule) apixaban 2.5 mg tablet (Eliquis) 2.5 mg PO BID 08/11/24 08/11/24 cefuroxime axetil 250 mg tablet 250 mg PO BID 08/11/24 08/11/24 collagenase clostridium histo. 250 1 appl topical DAILY 08/11/24 08/11/24 unit/gram topical ointment (Santyl) menthol 5 % topical patch (Cold 1 patch topical DAILY 08/11/24 08/11/24 and Hot (menthol)) multivitamin with minerals 1 tab PO DAILY 08/11/24 08/11/24 ondansetron HCl 4 mg tablet 4 mg PO Q8H PRN Nausea And Vomiting 08/11/24 08/11/24 sodium phosphates 19 gram-7 118 ml UT DAILY PRN Constipation 08/11/24 08/11/24 gram/118 mL enema (Fleet Enema) zinc acetate 50 mg (zinc) capsule 50 mg PO DAILY 08/11/24 08/11/24 Previous Rx's ?Medication ?Instructions ?Recorded polyethylene glycol 3350 17 gram 17 g PO DAILY #30 ea 03/06/24 oral powder packet doxazosin 2 mg tablet 4 mg PO BEDTIME #0 tabs 07/02/24 finasteride 5 mg tablet 5 mg PO DAILY #0 tabs 07/02/24 omeprazole 20 mg capsule,delayed 20 mg PO BID@0630,1630 #0 caps 07/02/24 release Allergies Allergy/AdvReac Type Severity Reaction Status Date / Time ibuprofen [IBUPROFEN] Allergy Intermediate HIVES Verified 08/10/24 23:34 hydromorphone [From DILAUDID] AdvReac Intermediate ILEUS Verified 08/10/24 23:34 procaine [From Novocain] AdvReac Intermediate has no Verified 08/10/24 23:34 numbing effect-states monocain works narcotic pain meds AdvReac Intermediate does not Uncoded 08/10/24 23:34 relieve pain per patient Review of Systems 2 Review of Systems: Yes all other systems are reviewed and are negative PMFSH Past Medical History Medical History (Updated 08/12/24 @ 15:27 by Ferdinand Gonzáles MD) Delirium Altered mental status Sepsis Atherosclerotic cardiovascular disease PAF (paroxysmal atrial fibrillation) NSTEMI (non-ST elevated myocardial infarction) Chronic renal disease, stage 3, moderately decreased glomerular filtration rate (GFR) between 30-59 mL/min/1.73 square meter Chest pain Heart failure Thyroid disease GERD (gastroesophageal reflux disease) On anticoagulant therapy COVID-19 vaccine series completed Symptomatic cholelithiasis HTN (hypertension) Hyperlipidemia Atrial fibrillation Sleep apnea Elevated PSA Facet arthropathy, cervical BPH loc w urin obs/LUTS Surgical History (Updated 08/12/24 @ 12:09 by Alysa Thapa PA-C) S/P percutaneous endoscopic gastrostomy (PEG) tube placement Hx of tracheostomy S/P laparoscopic cholecystectomy Hx of cataract extraction History of total replacement of both hip joints Hx of cystoscopy H/O colonoscopy History of surgery Family History Family History Unknown No problems noted. Social History Social History Household Members: Unknown / Unable to assess Housing: Unknown / Unable to assess Are you a primary healthcare associate to a significant other at home: No Do you presently have visiting nurse or other home services: No Alcohol intake: never Comment: patient is chair, bedbound Patient Tobacco Use Status: Never used Tobacco Use of substances other than those prescribed or required for medical reasons: No Currently Displaying Signs/Symptoms of Drug Intoxication Withdrawal: No Are you DNR?: No Advance Directives: Yes Advance Directives on File: Yes Advance Directives Date on File: 03/07/24 Do you have a plan to hurt others: No Plan Recently lost weight without trying: Unsure How much weight loss: Unsure Nutrition Risks: No Nutritional Risk service: No Current occupational status: retired Physical Exam ED Vital Signs: Vital Signs - 24 hr 08/10/24 23:31 08/10/24 23:54 Temperature 98.4 F 99.3 F Pulse Rate 91 87 Respiratory Rate 17 15 Blood Pressure 111/51 L 119/53 L Pulse Oximetry 98 95 Oxygen Delivery Method Room Air Room Air BMI result Body Mass Index 28.5 Vital signs were normal Exam: General: Awake, patient was very verbal, he was talking to himself and appears to be extremely delusional Head: Normocephalic, atraumatic EENT: PERRL, Lids normal, sclera normal, conjunctiva normal, nose normal , ears normal, throat without erythema or exudates Neck: Supple, no adenopathy Lung: breath sounds symmetric, no wheezing, rales or rhonchi Chest: symmetric movement, nontender Heart: regular rate and rhythm, normal S1, S2 2/6 systolic murmurs best heard at the left lower sternal border Abdomen: soft, non-tender, nondistended, normal bowel sounds Back: no vertebral tenderness, no CVAT Extremities: no deformities, moves all extremities symmetrically Neuro: Awake, delusional, pressured speech, cranial nerves intact, moves all extremities symmetrically Medications Administered Generic Name Dose Route Start Last Admin Trade Name Freq PRN Reason Stop Dose Admin Amiodarone HCl 200 mg 08/12/24 09:00 08/13/24 08:37 Amiodarone Hcl 200 Mg Tablet PO 200 mg DAILY AIDAN Administration Amlodipine Besylate 10 mg 08/12/24 09:00 08/13/24 08:36 Amlodipine Besylate 10 Mg Tablet PO 10 mg DAILY AIDAN Administration Protocol Ascorbic Acid 500 mg 08/11/24 21:00 08/13/24 08:36 Ascorbic Acid 500 Mg Tablet PO 500 mg BID AIDAN Administration Collagenase /03/25 09:00 08/13/24 09:44 Collagenase Clostridium Hist. 30 Gm Tube TOPICAL Not Given DAILY [facility] Protocol Docusate Sodium 100 mg 08/11/24 21:00 08/13/24 08:40 Docusate Sodium 100 Mg Capsule PO Not Given BID AIDAN Doxazosin Mesylate 4 mg 08/11/24 21:00 08/12/24 20:28 Doxazosin Mesylate 2 Mg Tablet PO Not Given BEDTIME [facility] Protocol Famotidine 20 mg 08/11/24 21:00 08/12/24 20:28 Famotidine 20 Mg Tablet PO 20 mg BEDTIME AIDAN Administration Ferrous Sulfate 324 mg 08/11/24 21:00 08/13/24 08:37 Ferrous Sulfate 324 Mg Tablet. PO 324 mg BID AIDAN Administration Finasteride 5 mg 08/12/24 09:00 08/13/24 08:37 Finasteride 5 Mg Tablet PO 5 mg DAILY AIDAN Administration Gabapentin 100 mg 08/11/24 21:00 08/13/24 08:36 Gabapentin 100 Mg Capsule PO 100 mg BID AIDAN Administration Dextrose/Lactated Ringer's 1,000 mls @ 100 mls/hr 08/11/24 13:45 08/13/24 11:54 D5lr IVCONT 0 mls/hr .Q10H AIDAN Infusion Levothyroxine Sodium 100 mcg 08/12/24 06:00 08/13/24 05:25 Levothyroxine Sodium 100 Mcg Tablet PO 100 mcg DAILY@0600 AIDAN Administration Melatonin 9 mg 08/11/24 21:00 08/12/24 20:29 Melatonin 3 Mg Tablet PO Not Given BEDTIME AIDAN Meropenem 0.5 gm 08/11/24 15:00 08/13/24 03:27 Meropenem 1 Gm Vial IVPUSH 0.5 gm Q12H AIDAN Administration Multivitamins/Vitamin C 1 tab 08/12/24 09:00 08/13/24 08:36 Multivitamin Tablet PO 1 tab DAILY AIDAN Administration Nystatin 1 appl 08/11/24 21:00 08/13/24 08:45 Nystatin Powder 15 Gm Bottle TOPICAL 1 appl BID AIDAN Administration Protocol Omeprazole 20 mg 08/11/24 16:30 08/13/24 05:25 Omeprazole 20 Mg Capsule. PO 20 mg BID@0630,1630 AIDAN Administration Polyethylene Glycol 17 gm 08/12/24 09:00 08/13/24 08:48 Polyethylene Glycol 3350 17 Gm Powd.Pack PO Not Given DAILY AIDAN Senna 17.2 mg 08/11/24 21:00 08/12/24 20:28 Sennosides 8.6 Mg Tablet PO 17.2 mg BEDTIME AIDAN Administration Sodium Chloride 3 ml 08/11/24 08:00 08/13/24 08:47 0.9 % Sodium Chloride Flush 3 Ml Syringe IVFLUSH Not Given QSHIFT AIDAN Thiamine HCl 100 mg 08/12/24 09:00 08/13/24 08:36 Thiamine Hcl 100 Mg Tablet PO 100 mg DAILY AIDAN Administration Tramadol HCl 25 mg 08/12/24 13:59 08/12/24 22:08 Tramadol Hcl 50 Mg Tablet PO 25 mg Q6H PRN Administration Pain, Severe (Pain Scale 7-10) Discontinued Medications Generic Name Dose Route Start Last Admin Trade Name Freq PRN Reason Stop Dose Admin Apixaban 2.5 mg 08/11/24 09:00 08/11/24 12:19 Apixaban 2.5 Mg Tablet PO Not Given BID AIDAN Haloperidol Lactate 5 mg 08/11/24 02:51 08/11/24 02:59 Haloperidol Lactate 5 Mg/Ml Vial IVPUSH 08/11/24 02:52 5 mg STAT STA Administration Heparin Sodium (Porcine) 5,000 unit 08/11/24 13:45 08/11/24 14:32 Heparin Sodium,Porcine 5,000 Unit/Ml Vial SUBCUT 5,000 unit Q12H AIDAN Administration Sodium Chloride 2,943 mls @ 2,943 mls/hr 08/11/24 02:39 08/11/24 04:05 Ns 30 ml/kg infuse over 1 hr (2943 ml) 08/11/24 03:38 Infused IV Infusion .Q1H STA Lorazepam 1 mg 08/11/24 02:51 08/11/24 02:58 Lorazepam 2 Mg/Ml Vial IVPUSH 08/11/24 02:52 1 mg STAT STA Administration Meropenem 1 gm 08/11/24 02:42 08/11/24 02:58 Meropenem 1 Gm Vial IVPUSH 08/11/24 02:43 1 gm ONCE ONE Administration Zinc Sulfate 50 mg 08/12/24 09:00 08/13/24 10:19 Zinc Sulfate 220 Mg Capsule PO Not Given DAILY [facility] Medical Decision Making Medical Decision Making [facility] Narrative: 84-year-old male with a history of dementia, paroxysmal atrial fibrillation, NSTEMI, chronic renal disease, heart failure, thyroid disease, GERD, hypertension, hyperlipidemia, encephalopathy secondary to urinary tract infection with recent admission to [facility] from 06/26/2024 until 07/10/2024 for an ESBL E coli treated with meropenem who was sent to the emergency department from his nursing facility, [facility] for evaluation of a low blood pressure and change in his mental status. The patient is delusional. Vital signs were normal. Physical examination was unremarkable. 02:45 Differential diagnosis: ?Includes but is not limited to psychiatric delusions, delirium, encephalopathy secondary to infection, urinary tract infection, COVID 19, influenza, RSV anemia, electrolyte abnormalities Course: 02:45 My independent interpretation patient's laboratory evaluation is as follows: WBC was normal. Chronic normocytic anemia with an H&H of 7.5 and 24.3. Elevated chloride 110. Low bicarb 20. Elevated BUN and creatinine of 33 and 1.9-secondary to chronic kidney disease and not infection. Troponin detectable but not elevated at 4.0. Initial lactic acid was 2.3, repeat lactic acid was 3.5. Urinalysis was obtained from the patient's chronic [place] and revealed positive protein, positive blood, positive leukocyte esterase. Microscopic revealed 11-20 RBCs, greater than 50 WBCs, 3-5 squamous cells, 4+ bacteria. Based on his previous admission, the patient did have acute delirium which did improve after being treated for a ESBL urinary tract infection. I believe the patient is again delirious secondary to encephalopathy s caused by and ESBL urinary tract infection. Patient was ordered to get normal saline bolus of 30 cc/kilogram, meropenem 1 g IV push, Haldol 5 mg IV and Ativan 1 mg IV. I did discuss the patient's presentation over tiger text with the covering hospitalist, Dr. Cortez and the patient will be admitted to the hospitalist service for further management. Admission/Observation Consideration of admission/observation: Escalation of care including admission/observation considered (Yes) Lab Data [facility] Lab Attestation statement: I reviewed the patient's lab results. 08/13/24 05:43 08/13/24 05:43 Labs: Lab Results 08/10/24 08/10/24 08/10/24 Range/Units 23:39 23:48 23:57 WBC 10.1 (4.8-10.8) X10*3/uL RBC 2.87 L (4.60-5.80) X10*6/uL Hgb 7.5 L (14.0-18.0) g/dl Hct 24.3 L (42.0-52.0) % MCV 84.7 (80.0-98.0) fL MCH 26.1 L (27.0-33.0) pg MCHC 30.9 L (31.0-36.0) g/dl RDW 19.4 H (11.0-16.0) % Plt Count 357 D (160-400) X10*3/uL MPV 9.1 L (9.4-12.4) fL Immature Gran % (Auto) 1.3 H (0.0-0.4) % Neut % (Auto) 63.4 (45-73) % Lymph % (Auto) 25.0 (20-40) % [place] % (Auto) 7.7 (2-11) % Eos % (Auto) 2.3 (0-4) % Baso % (Auto) 0.3 (0-2) % Lymph # (Auto) 2.5 (1.2-4.9) X10*3/uL [place] # (Auto) 0.8 (0.1-1.2) X10*3/uL Eos # (Auto) 0.2 (0.0-0.4) X10*3/uL Baso # (Auto) 0.0 (0.0-0.2) X10*3/uL Abs Immat Gran (auto) 0.13 H (0.00-0.03) X10*3/uL Absolute Neuts (auto) 6.4 (2.0-8.3) x10*3/uL Absolute Nucleated RBC 0.000 (0.0-0.012) X10*3/uL Nucleated RBC % (auto) 0.0 (0.0-0.2) /100WBC PT 17.1 H (10.9-12.4) SEC INR 1.5 H (0.9-1.1) Sodium 141 (135-145) mmol/L Potassium 4.1 (3.3-5.1) mmol/L Chloride 110 H (96-108) mmol/L Carbon Dioxide 20 L (22-29) mmol/L Anion Gap 15 (12-20) BUN 33 H (9-16) mg/dL Creatinine 1.93 H (0.5-1.4) mg/dL Estim Creat Clear Calc 35.1 Estimated GFR 33 Random Glucose 92 (60-115) mg/dL Lactic Acid 2.3 H* (0.5-2.0) mmol/L Lactic Acid F/U @ 2Hr (0.5-2.0) mmol/L Calcium 8.7 D (8.4-10.2) mg/dL Total Bilirubin 0.3 (0.0-1.0) mg/dL AST 23 (5-37) U/L ALT < 6 (0-40) U/L Alkaline Phosphatase 114 (39-117) U/L Troponin I High Sens 4.0 D (<3.5-35.0) ng/L B-Natriuretic Peptide 96 (<100) pg/mL Total Protein 7.0 (6.5-8.0) g/dL Albumin 2.3 L (3.5-5.0) g/dL Urine Color Yellow Urine Appearance Turbid Urine pH 6.0 (5.0-9.0) Ur Specific [place] 1.025 (1.005-1.025) Urine Protein 100 (2+) H (Neg-Trace) mg/dL Urine Glucose (UA) Negative (Negative) mg/dL Urine Ketones Negative (Negative) mg/dL Urine Blood Moderate (2+) H (Negative) Urine Nitrite Negative (Negative) Ur Leukocyte Esterase Large (3+) H (Negative) Urine RBC 11-20 H (0-2) /HPF Urine WBC >50 (0-5) /HPF Ur Squamous Epith Cells 3-5 (0-2) /HPF Ur Renal Epithelial Cell Present Urine Bacteria 4+ (None Seen) Hyaline Casts 3-5 (0-2) /LPF Influenza Type A (PCR) NEGATIVE (Negative) Influenza Type B (PCR) NEGATIVE (Negative) RSV RNA Qual (PCR) NEGATIVE (Negative) SARS-CoV-2 RNA (RT-PCR) NEGATIVE (Negative) 08/11/24 Range/Units 02:12 WBC (4.8-10.8) X10*3/uL RBC (4.60-5.80) X10*6/uL Hgb (14.0-18.0) g/dl Hct (42.0-52.0) % MCV (80.0-98.0) fL MCH (27.0-33.0) pg MCHC (31.0-36.0) g/dl RDW (11.0-16.0) % Plt Count (160-400) X10*3/uL MPV (9.4-12.4) fL Immature Gran % (Auto) (0.0-0.4) % Neut % (Auto) (45-73) % Lymph % (Auto) (20-40) % [place] % (Auto) (2-11) % Eos % (Auto) (0-4) % Baso % (Auto) (0-2) % Lymph # (Auto) (1.2-4.9) X10*3/uL [place] # (Auto) (0.1-1.2) X10*3/uL Eos # (Auto) (0.0-0.4) X10*3/uL Baso # (Auto) (0.0-0.2) X10*3/uL Abs Immat Gran (auto) (0.00-0.03) X10*3/uL Absolute Neuts (auto) (2.0-8.3) x10*3/uL Absolute Nucleated RBC (0.0-0.012) X10*3/uL Nucleated RBC % (auto) (0.0-0.2) /100WBC PT (10.9-12.4) SEC INR (0.9-1.1) Sodium (135-145) mmol/L Potassium (3.3-5.1) mmol/L Chloride (96-108) mmol/L Carbon Dioxide (22-29) mmol/L Anion Gap (12-20) BUN (9-16) mg/dL Creatinine (0.5-1.4) mg/dL Estim Creat Clear Calc Estimated GFR Random Glucose (60-115) mg/dL Lactic Acid (0.5-2.0) mmol/L Lactic Acid F/U @ 2Hr 3.5 H* (0.5-2.0) mmol/L Calcium (8.4-10.2) mg/dL Total Bilirubin (0.0-1.0) mg/dL AST (5-37) U/L ALT (0-40) U/L Alkaline Phosphatase (39-117) U/L Troponin I High Sens (<3.5-35.0) ng/L B-Natriuretic Peptide (<100) pg/mL Total Protein (6.5-8.0) g/dL Albumin (3.5-5.0) g/dL Urine Color Urine Appearance Urine pH (5.0-9.0) Ur Specific [place] (1.005-1.025) Urine Protein (Neg-Trace) mg/dL Urine Glucose (UA) (Negative) mg/dL Urine Ketones (Negative) mg/dL Urine Blood (Negative) Urine Nitrite (Negative) Ur Leukocyte Esterase (Negative) Urine RBC (0-2) /HPF Urine WBC (0-5) /HPF Ur Squamous Epith Cells (0-2) /HPF Ur Renal Epithelial Cell Urine Bacteria (None Seen) Hyaline Casts (0-2) /LPF Influenza Type A (PCR) (Negative) Influenza Type B (PCR) (Negative) RSV RNA Qual (PCR) (Negative) SARS-CoV-2 RNA (RT-PCR) (Negative) Independent Interpretation I performed an independent interpretation of an: EKG Interpretation: My independent interpretation patient's 12 EKG done at 00:16 hours is as follows: Normal sinus rhythm rate of 89, normal UT interval, QRS duration, prolonged QTC of 518 milliseconds, patient has artifact in the baseline which makes this EKG difficult to interpret, no obvious ST segment elevation or depression, no PACs, no PVCs External Record Review External record reviewed: Inpatient record and Outside ED record (assisted notes) Chronic Conditions Patient?s care impacted by: Hypertension and Other (Dementia) Critical Care Time Critical Care Time Critical Care Time: Yes Total Critical Care Time: 45 Attestation: Critical Care: The patient was critically ill with a high probability of imminent or life threatening deterioration. I spent greater than 30 minutes of discontinuous time evaluating the patient,delivering critical care at the bedside, discussing and evaluating pertinent data with consultants. Critical care time does not include time spent performing separately billable procedures or teaching. Total time spent performing critical care was 45 minutes. Discharge Plan Discharge Clinical Impression: Encephalopathy due to infection, Urinary tract infection Patient Disposition: Admitted As Inpatient Interventions: Admission Worksheet (ED) Last Done: 08/11/24 07:55 Discharge Date/Time: 08/11/24 08:37
[2024-08-11 02:38] LABS: ~Lactic Acid-LAB USE ONLY 3.5 mmol/L (0.5-2.0)
[2024-08-11] MEDS: LORazepam 2 MG/ML VIAL 1 MG IVPUSH (02:58)
[2024-08-11] MEDS: Meropenem 1 GM VIAL IVPUSH (02:58)
[2024-08-11] MEDS: Haloperidol Lactate 5 MG/ML VIAL IVPUSH (02:59)
[2024-08-11] MEDS: SODIUM CHLORIDE 2943 ML IV (02:59)
--- NOTE | 2024-08-11 03:02 | PC.NURSE ---
pt noted to have increased confusion and becoming agitated. Provider aware, per provider, sepsis alert called at this time due to pt lactic increasing as well as pt increased delirium/change in mental status. pt noted to be attempting to remove IV line as well as tele leads and bp cuff. pt medicated per sep.
--- NOTE | 2024-08-11 03:38 | P.HPHOSP_ITS ---
History of Present Illness Date of Service: 08/11/24 Chief Complaint: UTI, AMS 84M PMH PAF, HFrEF, HTN, CKD III, GALLITO, GERD, [place] [facility] [place] for MDR UTI discharged on Meropenem, sent by SNF for alterd mentation and low BP readings. Last admission he had ESBL klebsiella in urine culture, sensitive to IV meds only. patient confused about the reason he is in the hospital but denies dysuria, fever, urinary frequency. He is confused about time and place. has delusional ideas that his name is Barron and he is powerful being that is so old. can be redirected and not aggressive or agitated. Urine analysis positive for UTI. Noted to have elevated Lactic acid as well but BP was within normal in ED. admitted for IV antibiotics pending final cultures. Review of Systems 2 Review of Systems: No fever, chills No chest pain, palpitation No shortness of breath or coughing No abdominal pain, nausea or vomiting No urinary symptoms PMFSH Medical History Delirium Altered mental status Sepsis Atherosclerotic cardiovascular disease PAF (paroxysmal atrial fibrillation) NSTEMI (non-ST elevated myocardial infarction) Chronic renal disease, stage 3, moderately decreased glomerular filtration rate (GFR) between 30-59 mL/min/1.73 square meter Chest pain Heart failure Thyroid disease GERD (gastroesophageal reflux disease) On anticoagulant therapy COVID-19 vaccine series completed Symptomatic cholelithiasis HTN (hypertension) Hyperlipidemia Atrial fibrillation Sleep apnea Elevated PSA Facet arthropathy, cervical BPH loc w urin obs/LUTS Family History Unknown No problems noted. Surgical History S/P laparoscopic cholecystectomy Hx of cataract extraction History of total replacement of both hip joints Hx of cystoscopy H/O colonoscopy History of surgery Social History Household Members: Spouse Housing: House Are you a primary care navigator to a significant other at home: No Do you presently have visiting nurse or other home services: No Alcohol intake: never Comment: patient is chair, bedbound Patient Tobacco Use Status: Never used Tobacco Advance Directives: Yes Advance Directives on File: Yes Advance Directives Date on File: 03/07/24 Do you have a plan to hurt others: No Plan service: No Current occupational status: retired Meds Allergies Allergy/AdvReac Type Severity Reaction Status Date / Time ibuprofen [IBUPROFEN] Allergy Intermediate HIVES Verified 08/10/24 23:34 hydromorphone [From DILAUDID] AdvReac Intermediate ILEUS Verified 08/10/24 23:34 procaine [From Novocain] AdvReac Intermediate has no Verified 08/10/24 23:34 numbing effect-states monocain works narcotic pain meds AdvReac Intermediate does not Uncoded 08/10/24 23:34 relieve pain per patient Active Medications: Current Medications Sodium Chloride (Ns) 2,943 mls @ 2,943 mls/hr 30 ml/kg infuse over 1 hr (2943 ml) IV .Q1H STA Stop: 08/11/24 03:38 Last Admin: 08/11/24 02:59 Dose: 2,943 mls/hr Home Medications ?Medication ?Instructions ?Recorded ?Confirmed ?Last Taken ?Type Lactobacillus acidophilus 1 1,000 mmu cells PO BID 06/26/24 06/26/24 Unknown History billion cell tablet acetaminophen 325 mg tablet 975 mg PO Q6H PRN Pain/Fever 06/26/24 06/26/24 Unknown History albuterol sulfate 2.5 mg/3 mL 2.5 mg inhalation Q4H PRN 06/26/24 06/26/24 Unknown History (0.083 %) solution for nebulization Shortness Of Breath Or Wheezing amiodarone 200 mg tablet 200 mg PO DAILY 06/26/24 06/26/24 Unknown History amlodipine 10 mg tablet 10 mg PO DAILY 06/26/24 06/26/24 Unknown History apixaban 5 mg tablet (Eliquis) 2.5 mg PO BID 06/26/24 06/26/24 Unknown History ascorbic acid (vitamin C) 500 mg 500 mg PO BID 06/26/24 06/26/24 Unknown History tablet bisacodyl 10 mg rectal suppository 10 mg FL DAILY PRN Constipation 06/26/24 06/26/24 Unknown History docusate sodium 100 mg tablet 100 mg PO BID 06/26/24 06/26/24 Unknown History famotidine 20 mg tablet 20 mg PO BEDTIME 06/26/24 06/26/24 Unknown History ferrous sulfate 325 mg (65 mg 325 mg PO BID 06/26/24 06/26/24 Unknown History iron) tablet gabapentin 100 mg capsule 100 mg PO BID 06/26/24 06/26/24 Unknown History levothyroxine 100 mcg tablet 100 mcg PO DAILY@0600 06/26/24 06/26/24 Unknown History lidocaine 5 % topical patch 1 patch topical DAILY 06/26/24 06/26/24 Unknown History (Lidoderm) magnesium hydroxide 400 mg/5 mL 30 ml PO DAILY PRN Constipation 06/26/24 06/26/24 Unknown History oral suspension (Milk of Magnesia) melatonin 5 mg tablet 10 mg PO BEDTIME 06/26/24 06/26/24 Unknown History multivitamin 1 tab PO DAILY 06/26/24 06/26/24 Unknown History nystatin 100,000 unit/gram topical 1 appl topical DAILY 06/26/24 06/26/24 Unknown History powder polyvinyl alcohol 1.4 % eye drops 1 drp ophthalmic (eye) Q6H PRN Dry 06/26/24 06/26/24 Unknown History Eyes quetiapine 25 mg tablet 25 mg PO BEDTIME 06/26/24 06/26/24 Unknown History sennosides 8.6 mg tablet (senna) 17.2 mg PO BEDTIME 06/26/24 06/26/24 Unknown History sodium phosphates oral solution 15 ml PO Q2H PRN Constipation 06/26/24 06/26/24 Unknown History thiamine HCl (vitamin B1) 100 mg 100 mg PO DAILY 06/26/24 06/26/24 Unknown History tablet (Vitamin B-1) Physical Exam 2 Vital Signs and Narrative: Vital Signs: Last Vital Signs Temp 98.7 F 08/11/24 02:34 Pulse 87 08/11/24 02:34 Resp 20 08/11/24 02:34 BP 126/96 H 08/11/24 02:34 Pulse Ox 98 08/11/24 02:34 O2 Del Method Room Air 08/11/24 02:34 BMI result Body Mass Index 28.5 Const: Other: Constitutional : interactive, not in distress Cardiovascular : no JVP, no lower extremity edema Respiratory : bilateral chest movement, not in resp distress Gastrointestinal: soft, lax, Non tender Skin : Warm, Dry Neurological : Alert & disoriented , No focal deficit Results Labs 08/10/24 23:39 08/11/24 05:40 Labs: Laboratory Results - last 24 hr 08/10/24 08/10/24 08/10/24 23:39 23:48 23:57 MCV 84.7 MCH 26.1 L MCHC 30.9 L RDW 19.4 H Plt Count 357 D MPV 9.1 L Immature Gran % (Auto) 1.3 H Neut % (Auto) 63.4 Lymph % (Auto) 25.0 [place] % (Auto) 7.7 Eos % (Auto) 2.3 Baso % (Auto) 0.3 Lymph # (Auto) 2.5 [place] # (Auto) 0.8 Eos # (Auto) 0.2 Baso # (Auto) 0.0 Abs Immat Gran (auto) 0.13 H Absolute Neuts (auto) 6.4 Absolute Nucleated RBC 0.000 Nucleated RBC % (auto) 0.0 PT 17.1 H INR 1.5 H Anion Gap 15 Estim Creat Clear Calc 35.1 Estimated GFR 33 Random Glucose 92 Lactic Acid 2.3 H* Lactic Acid F/U @ 2Hr Calcium 8.7 D Total Bilirubin 0.3 AST 23 ALT < 6 Alkaline Phosphatase 114 Troponin I High Sens 4.0 D B-Natriuretic Peptide 96 Total Protein 7.0 Albumin 2.3 L Urine Color Yellow Urine Appearance Turbid Urine pH 6.0 Ur Specific [place] 1.025 Urine Protein 100 (2+) H Urine Glucose (UA) Negative Urine Ketones Negative Urine Blood Moderate (2+) H Urine Nitrite Negative Ur Leukocyte Esterase Large (3+) H Urine RBC 11-20 H Urine WBC >50 Ur Squamous Epith Cells 3-5 Ur Renal Epithelial Cell Present Urine Bacteria 4+ Hyaline Casts 3-5 Influenza Type A (PCR) NEGATIVE Influenza Type B (PCR) NEGATIVE RSV RNA Qual (PCR) NEGATIVE SARS-CoV-2 RNA (RT-PCR) NEGATIVE 08/11/24 02:12 MCV MCH MCHC RDW Plt Count MPV Immature Gran % (Auto) Neut % (Auto) Lymph % (Auto) [place] % (Auto) Eos % (Auto) Baso % (Auto) Lymph # (Auto) [place] # (Auto) Eos # (Auto) Baso # (Auto) Abs Immat Gran (auto) Absolute Neuts (auto) Absolute Nucleated RBC Nucleated RBC % (auto) PT INR Anion Gap Estim Creat Clear Calc Estimated GFR Random Glucose Lactic Acid Lactic Acid F/U @ 2Hr 3.5 H* Calcium Total Bilirubin AST ALT Alkaline Phosphatase Troponin I High Sens B-Natriuretic Peptide Total Protein Albumin Urine Color Urine Appearance Urine pH Ur Specific [place] Urine Protein Urine Glucose (UA) Urine Ketones Urine Blood Urine Nitrite Ur Leukocyte Esterase Urine RBC Urine WBC Ur Squamous Epith Cells Ur Renal Epithelial Cell Urine Bacteria Hyaline Casts Influenza Type A (PCR) Influenza Type B (PCR) RSV RNA Qual (PCR) SARS-CoV-2 RNA (RT-PCR) Assessment and Plan (1) Urinary tract infection: Status: Acute (2) Encephalopathy due to infection: Status: Acute (3) Acute lactic acidosis: Status: Acute Plan 84M PMH PAF, HFrEF, HTN, CKD III, GALLITO, GERD, prolonged hospitalizations at [facility] [place] for MDR UTI discharged on Meropenem, sent by SNF for alterd mentation and low BP readings. Acute urinary tract infection complicated with acute metabolic encephalopathy and sepsis recent MDR UTI w ESBL Klebsiella complicated with bacteremia Start IV meropenem pending final cultures redirection hold medications that might worsens his mental status (received Haldol and Lorazepam in ED) Acute lactic acidosis Likely secondary to sepsis, home medications received IVF bolus, treat infection Trend LA unspecified dementia with acute delrium orienting strategies, improved today CKD 3 Stable Cr, monitor BMP chronic anemia multifactorial, chronic blood loss, inflammatory, dilutional Continue PO ppi monitor H&H Paroxysmal atrial fibrillation continue Eliquis and Amiodarone hypothyroid synthroid DVT prophylaxis - restart Eliquis Med rec pending The patient will need 2 overnight hospital stay for treamtnet of UTI w MDR hx on IV antibiotics pending final cultures Quality Stroke Does the patient have a stroke diagnosis?: No VTE Prior VTE?: No VTE Risk Level:: Medical - moderate - high VTE Device Contraindication: Treatment Not Indicated VTE Drug Contraindication: N/A - Med Ordered
[2024-08-11 04:16] LABS: Reflex Lactate? 2 Y
--- NOTE | 2024-08-11 04:44 | PC.NURSE ---
second IV access obtained at this time, 20G right bicep. pt appears to be sleeping, respirations even and unlabored, vss .
[2024-08-11 04:45] LABS: ~Lactic Acid-LAB USE ONLY 0.7 mmol/L (0.5-2.0)
[2024-08-11 05:58] LABS: Anion Gap 13 (12-20); Blood Urea Nitrogen 30 mg/dL (9-16); Carbon Dioxide 19 mmol/L (22-29); Chloride 115 mmol/L (96-108); Creatinine Clr Calc Pharmacy 37.2; Estimated Glomerular Filt Rate 36; Glucose Random 113 mg/dL (60-115); Potassium 3.5 mmol/L (3.3-5.1); Sodium 143 mmol/L (135-145)
--- NOTE | 2024-08-11 07:53 | HO.PM.IMPN ---
Subjective Subjective Date of Service: 08/11/24 Interval History: f/u on metabolic encephalopathy d/t uti, and sepsis given ativan and haldol overnight and presently very somnolent Physical Exam Vital Signs: Vital Signs: Last Vital Signs Temp 98.0 F 08/11/24 05:47 Pulse 83 08/11/24 05:47 Resp 18 08/11/24 05:47 BP 110/38 L 08/11/24 05:47 Pulse Ox 99 08/11/24 05:47 O2 Del Method Nasal Cannula 08/11/24 05:47 O2 Flow Rate 2 08/11/24 05:47 BMI result Body Mass Index 28.5 Const: Other: General: AO X , no acute distress Resp: CTA bilateral CVS: S1,S2,RRR GI: +BS, NT, no distention Skin: Neuro: motor grossly intact Psych: appropriate affect Objective Data Active Medications Acetaminophen (Acetaminophen 325 Mg Tablet) 650 mg PO Q6H PRN PRN Reason: Pain, Mild 1-3,fever,headache Calcium Carbonate (Calcium Carbonate 750 Mg Tab.Chew) 750 mg PO Q4H PRN PRN Reason: Heartburn Magnesium Hydroxide (Milk Of Magnesia 30 Ml Oral.Susp) 30 ml PO DAILY PRN PRN Reason: Constipation Melatonin (Melatonin 3 Mg Tablet) 6 mg PO BEDTIME PRN PRN Reason: Insomnia Meropenem (Meropenem 1 Gm Vial) 0.5 gm IVPUSH Q12H [facility] Ondansetron HCl (Ondansetron Hcl 4 Mg/2 Ml Vial) 4 mg IVPUSH Q8H PRN PRN Reason: Nausea and Vomiting Sodium Chloride (0.9 % Sodium Chloride Flush 3 Ml Syringe) 3 ml IVFLUSH QSHIFT [facility] Labs 08/10/24 23:39 08/11/24 05:40 Labs: Laboratory Results - last 24 hr 08/10/24 08/10/24 08/10/24 23:39 23:48 23:57 MCV 84.7 MCH 26.1 L MCHC 30.9 L RDW 19.4 H Plt Count 357 D MPV 9.1 L Immature Gran % (Auto) 1.3 H Neut % (Auto) 63.4 Lymph % (Auto) 25.0 [place] % (Auto) 7.7 Eos % (Auto) 2.3 Baso % (Auto) 0.3 Lymph # (Auto) 2.5 [place] # (Auto) 0.8 Eos # (Auto) 0.2 Baso # (Auto) 0.0 Abs Immat Gran (auto) 0.13 H Absolute Neuts (auto) 6.4 Absolute Nucleated RBC 0.000 Nucleated RBC % (auto) 0.0 PT 17.1 H INR 1.5 H Anion Gap 15 Estim Creat Clear Calc 35.1 Estimated GFR 33 Random Glucose 92 Lactic Acid 2.3 H* Lactic Acid F/U @ 2Hr Lactic Acid F/U @ 4Hr Calcium 8.7 D Total Bilirubin 0.3 AST 23 ALT < 6 Alkaline Phosphatase 114 Troponin I High Sens 4.0 D B-Natriuretic Peptide 96 Total Protein 7.0 Albumin 2.3 L Urine Color Yellow Urine Appearance Turbid Urine pH 6.0 Ur Specific [place] 1.025 Urine Protein 100 (2+) H Urine Glucose (UA) Negative Urine Ketones Negative Urine Blood Moderate (2+) H Urine Nitrite Negative Ur Leukocyte Esterase Large (3+) H Urine RBC 11-20 H Urine WBC >50 Ur Squamous Epith Cells 3-5 Ur Renal Epithelial Cell Present Urine Bacteria 4+ Hyaline Casts 3-5 Influenza Type A (PCR) NEGATIVE Influenza Type B (PCR) NEGATIVE RSV RNA Qual (PCR) NEGATIVE SARS-CoV-2 RNA (RT-PCR) NEGATIVE 08/11/24 08/11/24 08/11/24 02:12 04:25 05:40 MCV MCH MCHC RDW Plt Count MPV Immature Gran % (Auto) Neut % (Auto) Lymph % (Auto) [place] % (Auto) Eos % (Auto) Baso % (Auto) Lymph # (Auto) [place] # (Auto) Eos # (Auto) Baso # (Auto) Abs Immat Gran (auto) Absolute Neuts (auto) Absolute Nucleated RBC Nucleated RBC % (auto) PT INR Anion Gap 13 Estim Creat Clear Calc 37.2 Estimated GFR 36 Random Glucose 113 Lactic Acid Lactic Acid F/U @ 2Hr 3.5 H* Lactic Acid F/U @ 4Hr 0.7 Calcium 8.0 L D Total Bilirubin AST ALT Alkaline Phosphatase Troponin I High Sens B-Natriuretic Peptide Total Protein Albumin Urine Color Urine Appearance Urine pH Ur Specific [place] Urine Protein Urine Glucose (UA) Urine Ketones Urine Blood Urine Nitrite Ur Leukocyte Esterase Urine RBC Urine WBC Ur Squamous Epith Cells Ur Renal Epithelial Cell Urine Bacteria Hyaline Casts Influenza Type A (PCR) Influenza Type B (PCR) RSV RNA Qual (PCR) SARS-CoV-2 RNA (RT-PCR) Assessment and Plan (1) Encephalopathy due to infection: Status: Acute (2) Urinary tract infection: Status: Acute Plan 84M PMH PAF, HFrEF, HTN, CKD III, GALLITO, GERD, prolonged hospitalizations at [facility] [place] 06/[place]24 for MDR UTI discharged on Meropenem, sent by SNF for alterd mentation and low BP readings. Acute urinary tract infection complicated with acute metabolic encephalopathy and sepsis recent MDR UTI w ESBL Klebsiella complicated with bacteremia IV meropenem 08/11, pending final cultures hold medications that might worsens his mental status (received Haldol and Lorazepam in ED) Acute lactic acidosis Likely secondary to sepsis, home medications received IVF bolus, treat infection Trend LA unspecified dementia with acute delrium orienting strategies, improved today CKD 3 Stable Cr, monitor BMP chronic anemia multifactorial, chronic blood loss, inflammatory, dilutional Continue PO ppi monitor H&H Paroxysmal atrial fibrillation continue Eliquis and Amiodarone pressure ulcer protocol hypothyroid synthroid Pressure Ulcers--POA wound care consult surgery for possible debridment DVT prophylaxis - restart Eliquis need for inpt: metabolic encephalopathy, sepsis Quality Stroke Does the patient have a stroke diagnosis?: No VTE Prior VTE?: No VTE Risk Level:: Medical - moderate - high VTE Device Contraindication: Treatment Not Indicated VTE Drug Contraindication: N/A - Med Ordered
--- NOTE | 2024-08-11 10:30 | PHA.MEDREC ---
Pharmacy Consult ? Medication Reconciliation Pharmacy has completed the medication reconciliation. List from [facility] - md aware
[2024-08-11] MEDS: Meropenem 1 GM VIAL 0.5 GM IVPUSH (14:32)
[2024-08-11] MEDS: Dextrose 5 % and Lactated Ring 1,000 ML 100 ML IVCONT (14:32)
[2024-08-11] MEDS: Heparin Sodium,Porcine 5,000 UNIT/ML VIAL 5000 UNIT SUBCUT (14:32)
--- NOTE | 2024-08-11 16:16 | PC.NURSE ---
Chronic desai catheter changed per Dr Jimenez. Original desai catheter removed with no issues. New 16f desai catheter placed 200mls cloudy dark yellow urine immediately drained Pt tolerated well. Hematuria noted after initial 200mls of urine, Dr Jimenez notified. No new orders at this time.
[2024-08-11 16:46] LABS: ABG Base Excess -1.4 mmol/L; ABG HCO3 22 mmol/L (22-26); ABG pCO2 31 mmHg (32-45); ABG pH 7.45 (7.35-7.45)
--- NOTE | 2024-08-11 16:57 | PC.RT ---
RT called to evaluate pt for lethergy and inc wob. Pt noted arousable but only briefly,unable to answer any questions. aware, abg ordered and performed. PH 7.44, Pco2 31.1, PO2 was in quality control associate mode but spo2 was noted as 98%, and HCO3 22. aware.
[2024-08-11 17:17] LABS: Mean Corpuscular HGB Conc 29.9 g/dl (31.0-36.0); Mean Corpuscular Hemoglobin 26.1 pg (27.0-33.0); Mean Corpuscular Volume 87.2 fL (80.0-98.0); Mean Platelet Volume 9.2 fL (9.4-12.4); Platelet Count 277 X10*3/uL (160-400); Red Blood Count 2.34 X10*6/uL (4.60-5.80); Red Cell Distribution Width 19.9 % (11.0-16.0); White Blood Count 7.7 X10*3/uL (4.8-10.8)
[2024-08-11 17:48] LABS: Ammonia 51 umol/L (13-55)
[2024-08-11 17:54] LABS: Anion Gap 12 (12-20); Blood Urea Nitrogen 30 mg/dL (9-16); Calcium 8.3 mg/dL (8.4-10.2); Carbon Dioxide 21 mmol/L (22-29); Chloride 115 mmol/L (96-108); Creatinine Clr Calc Pharmacy 37.4; Estimated Glomerular Filt Rate 36; Glucose Random 108 mg/dL (60-115); Potassium 3.9 mmol/L (3.3-5.1); Sodium 144 mmol/L (135-145)
[2024-08-11 17:55] LABS: Lactic Acid 0.9 mmol/L (0.5-2.0)
[2024-08-11 18:04] LABS: Hematocrit 20.4 % (42.0-52.0); Hemoglobin 6.1 g/dl (14.0-18.0)
--- NOTE | 2024-08-11 18:26 | P.EN_ITS ---
Event Note Date of Service: 08/11/24 Event Note: The patient remains somnolent following administration of Ativan 1mg and Haldol 5mg earlier this morning. Although his vital signs are stable, and both ABG and ammonia levels are unremarkable, repeat blood work demonstrates a decline in H/H, and he is notably pale. While his responsiveness is improving, he is not maintaining wakefulness for extended periods. He is currently NPO and receiving IV fluids (IVF). Due to the declining H/H and pallor, a transfusion of one unit of packed RBCs is planned. Consent for this procedure was obtained via the HCP, witnessed by LIU Buenrostro and the patient's daughter, Chapis Atkinson who resides in [place]. The current orders include holding Eliquis, continuing IV fluids and antibiotics (abx). A newly placed Jam[place] catheter revealed pyuria and self-limited hematuria. She confirms patient being full code for a one time trial of resuscitation Time Spent With Patient Time: Total time managing care of this patient today ____ minutes.
--- NOTE | 2024-08-11 18:32 | PC.NURSE ---
Pt Hgb 6.1. Unable to sign for consent. Dr Jimenez called Daughter Chapis Atkinson to obtain consent for blood, t/w heard verbal confirmation of consent for blood to be given to pt.
[2024-08-11] MEDS: Nystatin Powder 15 GM BOTTLE 1 APPL TOPICAL (20:33)
[2024-08-11 23:17] LABS: ABG Refer to POC result
[2024-08-12] VITALS (9 sets, daily range): BP systolic 97–141; BP diastolic 51–62; PULSE 65–76; RESP 12–18; TEMP 36–36.6; O2SAT 96–98; BMI 28.5
[2024-08-12] MEDS: Meropenem 1 GM VIAL 0.5 GM IVPUSH ×2 (03:04→14:44)
--- NOTE | 2024-08-12 03:47 | PC.NURSE ---
Blood transfusion date 08/11/24 , clarification to verification checklist documentation at 20:09 is that no blood wormer was used. Check yady for this item was entered by mistake.
[2024-08-12] MEDS: Dextrose 5 % and Lactated Ring 1,000 ML 100 ML IVCONT ×2 (03:55→19:27)
[2024-08-12] MEDS: Omeprazole 20 MG CAPSULE.DR PO (05:58)
[2024-08-12] MEDS: Levothyroxine Sodium 100 MCG TABLET PO (05:58)
[2024-08-12 06:22] LABS: Hematocrit 23.7 % (42.0-52.0); Hemoglobin 7.4 g/dl (14.0-18.0); Mean Corpuscular HGB Conc 31.2 g/dl (31.0-36.0); Mean Corpuscular Hemoglobin 27.3 pg (27.0-33.0); Mean Corpuscular Volume 87.5 fL (80.0-98.0); Mean Platelet Volume 9.1 fL (9.4-12.4); NRBC Pct Auto 0.2 /100WBC (0.0-0.2); Platelet Count 312 X10*3/uL (160-400); Red Blood Count 2.71 X10*6/uL (4.60-5.80); Red Cell Distribution Width 18.9 % (11.0-16.0)
[2024-08-12 08:31] LABS: Anion Gap 11 (12-20); Blood Urea Nitrogen 27 mg/dL (9-16); Calcium 8.2 mg/dL (8.4-10.2); Carbon Dioxide 22 mmol/L (22-29); Chloride 116 mmol/L (96-108); Creatinine Clr Calc Pharmacy 42.9; Estimated Glomerular Filt Rate 42; Glucose Random 94 mg/dL (60-115); Potassium 3.7 mmol/L (3.3-5.1); Sodium 145 mmol/L (135-145)
--- NOTE | 2024-08-12 09:25 | MHC.CM.PN ---
CM assessment completed w/ daughter/ HCP Chapis, as patient w/ AMS at this time. IMM delivered. Patient has been at [facility] for STR since June. Prior to that was at [facility] and another facility for rehab. Originally lived w/ (who has dx dementia) up until February 2024. Per daughter, unable to return home. PCP in community is Uday Sheehan MD. Tabby Bledsoe MD is physician @ [facility]. HCP/MOLST on file and verified. DP: Goal is return to [facility] via BLS. Daughter willing to pay for bed hold. [facility] aware. Daughter resides in [place] but plans to visit this month to sell home/dissolve other assets and find private pay LTC for both patient and his . CM will continue to follow.
[2024-08-12] MEDS: Ferrous Sulfate 324 MG TABLET.DR PO ×2 (11:01→20:28)
[2024-08-12] MEDS: Multivitamin TABLET 1 TAB PO (11:01)
[2024-08-12] MEDS: Thiamine HCL 100 MG TABLET PO (11:01)
--- NOTE | 2024-08-12 11:01 | P.PNIM_ITS ---
Subjective Subjective Date of Service: 08/12/24 Interval History: f/u on metabolic encephalopathy d/t uti, and sepsis He was somnolent for the most part all day yesterday, likely from haldol and ativan he is more awake today, was transfused 1 unit of rbc yesterday, no signficant shift in H/H Physical Exam 2 Vital Signs: Vital Signs: Last Vital Signs Temp 97.4 F 08/12/24 10:46 Pulse 76 08/12/24 10:46 Resp 18 08/12/24 10:46 BP 117/52 L 08/12/24 10:46 Pulse Ox 98 08/12/24 07:35 O2 Del Method Nasal Cannula 08/12/24 07:35 O2 Flow Rate 1 08/12/24 07:35 BMI result Body Mass Index 28.5 somnolent, esily aroused cv rrr lung clear abd soft, nt, bs + ext no edema skin: see decub pictures from 08/11 Const: Other: Objective Data Active Medications Acetaminophen (Acetaminophen 325 Mg Tablet) 650 mg PO Q6H PRN PRN Reason: Pain, Mild 1-3,fever,headache Albuterol Sulfate (Albuterol Sulfate (0.083%) 2.5 Mg/3 Ml Vial.Neb) 2.5 mg INHALE Q4H PRN PRN Reason: Shortness Of Breath Or Wheezing Amiodarone HCl (Amiodarone Hcl 200 Mg Tablet) 200 mg PO DAILY [facility] Amlodipine Besylate (Amlodipine Besylate 10 Mg Tablet) 10 mg PO DAILY [facility]; Protocol Artificial Tears (Artificial Tears 15 Ml Drops) 1 drop EYE-BOTH Q6H PRN PRN Reason: Dry Eyes Ascorbic Acid (Ascorbic Acid 500 Mg Tablet) 500 mg PO BID [facility] Last Admin: 08/11/24 20:26 Dose: Not Given Documented By: BENJAMÍN Non-Admin Reason: pt very drowsy Bisacodyl (Bisacodyl 10 Mg Supp.Rect) 10 mg ND DAILY PRN PRN Reason: Constipation Calcium Carbonate (Calcium Carbonate 750 Mg Tab.Chew) 750 mg PO Q4H PRN PRN Reason: Heartburn Collagenase (Collagenase Clostridium Hist. 30 Gm Tube) 1 appl TOPICAL DAILY [facility]; Protocol Docusate Sodium (Docusate Sodium 100 Mg Capsule) 100 mg PO BID [facility] Last Admin: 08/11/24 20:27 Dose: Not Given Documented By: BENJAMÍN Non-Admin Reason: pt very drowsy Doxazosin Mesylate (Doxazosin Mesylate 2 Mg Tablet) 4 mg PO BEDTIME [facility]; Protocol Last Admin: 08/11/24 20:27 Dose: Not Given Documented By: BENJAMÍN Non-Admin Reason: pt very drowsy Famotidine (Famotidine 20 Mg Tablet) 20 mg PO BEDTIME [facility] Last Admin: 08/11/24 20:27 Dose: Not Given Documented By: BENJAMÍN Non-Admin Reason: pt very drowsy Ferrous Sulfate (Ferrous Sulfate 324 Mg Tablet.Dr) 324 mg PO BID [facility] Last Admin: 08/11/24 20:27 Dose: Not Given Documented By: BENJAMÍN Non-Admin Reason: pt very drowsy Finasteride (Finasteride 5 Mg Tablet) 5 mg PO DAILY [facility] Gabapentin (Gabapentin 100 Mg Capsule) 100 mg PO BID [facility] Last Admin: 08/11/24 20:27 Dose: Not Given Documented By: BENJAMÍN Non-Admin Reason: pt very drowsy Dextrose/Lactated Ringer's (D5lr) 1,000 mls @ 100 mls/hr IVCONT .Q10H [facility] Last Admin: 08/12/24 10:39 Dose: Not Given Documented By: EUGENIO Non-Admin Reason: IV Running Levothyroxine Sodium (Levothyroxine Sodium 100 Mcg Tablet) 100 mcg PO DAILY@0600 [facility] Last Admin: 08/12/24 05:58 Dose: 100 mcg Documented By: BENJAMÍN Magnesium Hydroxide (Milk Of Magnesia 30 Ml Oral.Susp) 30 ml PO DAILY PRN PRN Reason: Constipation Melatonin (Melatonin 3 Mg Tablet) 6 mg PO BEDTIME PRN PRN Reason: Insomnia Melatonin (Melatonin 3 Mg Tablet) 9 mg PO BEDTIME [facility] Last Admin: 08/11/24 20:28 Dose: Not Given Documented By: BENJAMÍN Non-Admin Reason: pt very drowsy Meropenem (Meropenem 1 Gm Vial) 0.5 gm IVPUSH Q12H [facility] Last Admin: 08/12/24 03:04 Dose: 0.5 gm Documented By: BENJAMÍN Multivitamins/Vitamin C (Multivitamin Tablet) 1 tab PO DAILY [facility] Nystatin (Nystatin Powder 15 Gm Bottle) 1 appl TOPICAL BID [facility]; Protocol Last Admin: 08/11/24 20:33 Dose: 1 appl Documented By: BENJAMÍN Omeprazole (Omeprazole 20 Mg Capsule.) 20 mg PO BID@0630,1630 [facility] Last Admin: 08/12/24 05:58 Dose: 20 mg Documented By: BENJAMÍN Ondansetron HCl (Ondansetron Hcl 4 Mg/2 Ml Vial) 4 mg IVPUSH Q8H PRN PRN Reason: Nausea and Vomiting Polyethylene Glycol (Polyethylene Glycol 3350 17 Gm Powd.Pack) 17 gm PO DAILY [facility] Senna (Sennosides 8.6 Mg Tablet) 17.2 mg PO BEDTIME [facility] Last Admin: 08/11/24 20:28 Dose: Not Given Documented By: BENJAMÍN Non-Admin Reason: pt very drowsy Sodium Biphosphate/Sodium Phosphate (Sodium Phosphate,[place]-Dibasic 133 Ml Enema) 118 ml ND DAILY PRN PRN Reason: Constipation Sodium Chloride (0.9 % Sodium Chloride Flush 3 Ml Syringe) 3 ml IVFLUSH QSHIFT [facility] Last Admin: 08/12/24 07:19 Dose: Not Given Documented By: NEENA Non-Admin Reason: IV Running Thiamine HCl (Thiamine Hcl 100 Mg Tablet) 100 mg PO DAILY [facility] Zinc Sulfate (Zinc Sulfate 220 Mg Capsule) 50 mg PO DAILY [facility] Labs 08/12/24 05:21 08/12/24 05:21 Labs: Laboratory Results - last 24 hr 08/11/24 08/11/24 08/11/24 16:34 17:00 17:07 MCV 87.2 MCH 26.1 L MCHC 29.9 L RDW 19.9 H Plt Count 277 MPV 9.2 L Absolute Nucleated RBC 0.000 Nucleated RBC % (auto) 0.0 O2 Saturation 98.0 ABG pH at Pt Temp 7.45 ABG pCO2 at Pt Temp 31 L ABG pO2 at Pt Temp Not Reportable ABG HCO3 22 ABG Base Excess (Actual) -1.4 Anion Gap 12 Estim Creat Clear Calc 37.4 Estimated GFR 36 Random Glucose 108 Lactic Acid 0.9 Calcium 8.3 L Magnesium Ammonia 51 Hold Green Top Blood Type O Positive Antibody Screen NEGATIVE Crossmatch See Detail 08/12/24 05:21 MCV 87.5 MCH 27.3 MCHC 31.2 RDW 18.9 H Plt Count 312 MPV 9.1 L Absolute Nucleated RBC 0.020 H Nucleated RBC % (auto) 0.2 O2 Saturation ABG pH at Pt Temp ABG pCO2 at Pt Temp ABG pO2 at Pt Temp ABG HCO3 ABG Base Excess (Actual) Anion Gap 11 L Estim Creat Clear Calc 42.9 Estimated GFR 42 Random Glucose 94 Lactic Acid Calcium 8.2 L Magnesium 2.0 Ammonia Hold Green Top See Note Blood Type Antibody Screen Crossmatch Microbiology Microbiology Results: Microbiology 08/10/24 23:57 Blood Culture - Preliminary Blood - Venous No growth after 24 hours. 08/10/24 23:39 Blood Culture - Preliminary Blood - Venous No growth after 24 hours. Assessment and Plan (1) Encephalopathy due to infection: Status: Acute (2) Urinary tract infection: Status: Acute Plan 84M PMH PAF, HFrEF, HTN, CKD III, GALLITO, GERD, [place] [facility] for MDR UTI discharged on Meropenem, sent by SNF for alterd mentation and low BP readings. Acute urinary tract infection complicated with acute metabolic encephalopathy and sepsis recent MDR UTI w ESBL Klebsiella complicated with bacteremia.. Recent cultures pending IV meropenem 08/11, hold medications that might worsens his mental status (received Haldol and Lorazepam in ED) Acute lactic acidosis Likely secondary to sepsis, home medications, resolved unspecified dementia with acute delrium orienting strategies, improved today CKD 3 Stable Cr, monitor BMP chronic anemia multifactorial, chronic blood loss, inflammatory, dilutional Continue PO ppi monitor H&H Paroxysmal atrial fibrillation continue Eliquis and Amiodarone pressure ulcer protocol Acute on chronic anemia, H/H dropped signficantly and was transfused 1 unit on 08/11, he has recent history of GIB managed conservatively and eliqquis was on hold. transfuse 1 more unit today, hold eliquis indefinately and discuss with charles, check occult blood hypothyroid synthroid Pressure Ulcers--see pic from 08/11 exam-POA wound care consult surgery for possible debridment SMOCKER eval before feeding, IVF for now DVT prophylaxis - restart Eliquis need for inpt: metabolic encephalopathy, sepsis Full code: discussed with daughter 08/11 and stated 1 attempt at CPR Quality Stroke Does the patient have a stroke diagnosis?: No VTE Prior VTE?: No VTE Risk Level:: Medical - moderate - high VTE Device Contraindication: Treatment Not Indicated VTE Drug Contraindication: N/A - Med Ordered
[2024-08-12] MEDS: amLODIPine Besylate 10 MG TABLET PO (11:02)
[2024-08-12] MEDS: Gabapentin 100 MG CAPSULE PO ×2 (11:02→20:28)
[2024-08-12] MEDS: Ascorbic Acid 500 MG TABLET PO ×2 (11:02→20:28)
[2024-08-12] MEDS: Docusate Sodium 100 MG CAPSULE PO ×2 (11:03→20:28)
[2024-08-12] MEDS: Finasteride 5 MG TABLET PO (11:03)
[2024-08-12] MEDS: Amiodarone HCL 200 MG TABLET PO (11:03)
[2024-08-12] MEDS: Nystatin Powder 15 GM BOTTLE 1 APPL TOPICAL ×2 (11:04→20:29)
--- NOTE | 2024-08-12 12:06 | P.CONGS_ITS ---
History of Present Illness Consult details Consult date: 08/12/24 <Alysa Thapa PA-C - Last Filed: 08/12/24 15:16> Narrative: Ramon Atkinson is a 84 year old male with multiple PMH including PAF, HFrEF, HTN, CKD III, GALLITO, GERD and multiple recent hospitalizations sent by SNF for altered mentation and low BP readings. He was subsequently admitted to the medical service for acute urinary tract infection complicated with acute metabolic encephalopathy and sepsis. He was found to have a sacral decubitus ulcer. Patient reports he has had this for a long time and it is painful. He is known to the surgical service for tracheostomy and PEG tube placement in 03/02 which was complicated by dislogdement and subsequent tracheostomy replacement. He reports he had this removed several months ago. <Alysa Thapa PA-C - Last Filed: 08/12/24 15:16> [facility] Past Medical History Medical History: Medical History (Updated 08/12/24 @ 15:27 by Ferdinand Gonzáles MD) Delirium Altered mental status Sepsis Atherosclerotic cardiovascular disease PAF (paroxysmal atrial fibrillation) NSTEMI (non-ST elevated myocardial infarction) Chronic renal disease, stage 3, moderately decreased glomerular filtration rate (GFR) between 30-59 mL/min/1.73 square meter Chest pain Heart failure Thyroid disease GERD (gastroesophageal reflux disease) On anticoagulant therapy COVID-19 vaccine series completed Symptomatic cholelithiasis HTN (hypertension) Hyperlipidemia Atrial fibrillation Sleep apnea Elevated PSA Facet arthropathy, cervical BPH loc w urin obs/LUTS <Alysa Thapa PA-C - Last Filed: 08/12/24 15:16> Family History Family History: Family History Unknown No problems noted. <Alysa Thapa PA-C - Last Filed: 08/12/24 15:16> Surgical History Surgical History: Surgical History (Updated 08/12/24 @ 12:09 by Alysa Thapa PA-C) S/P percutaneous endoscopic gastrostomy (PEG) tube placement Hx of tracheostomy S/P laparoscopic cholecystectomy Hx of cataract extraction History of total replacement of both hip joints Hx of cystoscopy H/O colonoscopy History of surgery <Alysa Thapa PA-C - Last Filed: 08/12/24 15:16> Social History Social History: Social History Household Members: Unknown / Unable to assess Housing: Unknown / Unable to assess Are you a primary wound care physician to a significant other at home: No Do you presently have visiting nurse or other home services: No Alcohol intake: never Comment: patient is chair, bedbound Patient Tobacco Use Status: Never used Tobacco Advance Directives Date on File: 03/07/24 service: No Current occupational status: retired <Alysa Thapa PA-C - Last Filed: 08/12/24 15:16> Meds Allergies/Adverse reactions: Allergies Allergy/AdvReac Type Severity Reaction Status Date / Time ibuprofen [IBUPROFEN] Allergy Intermediate HIVES Verified 08/10/24 23:34 hydromorphone [From DILAUDID] AdvReac Intermediate ILEUS Verified 08/10/24 23:34 procaine [From Novocain] AdvReac Intermediate has no Verified 08/10/24 23:34 numbing effect-states monocain works narcotic pain meds AdvReac Intermediate does not Uncoded 08/10/24 23:34 relieve pain per patient <Alysa Thapa PA-C - Last Filed: 08/12/24 15:16> Active Medications: Current Medications Acetaminophen (Acetaminophen 325 Mg Tablet) 650 mg PO Q6H PRN PRN Reason: Pain, Mild 1-3,fever,headache Albuterol Sulfate (Albuterol Sulfate (0.083%) 2.5 Mg/3 Ml Vial.Neb) 2.5 mg INHALE Q4H PRN PRN Reason: Shortness Of Breath Or Wheezing Amiodarone HCl (Amiodarone Hcl 200 Mg Tablet) 200 mg PO DAILY [facility] Last Admin: 08/12/24 11:03 Dose: 200 mg Amlodipine Besylate (Amlodipine Besylate 10 Mg Tablet) 10 mg PO DAILY [facility]; Protocol Last Admin: 08/12/24 11:02 Dose: 10 mg Artificial Tears (Artificial Tears 15 Ml Drops) 1 drop EYE-BOTH Q6H PRN PRN Reason: Dry Eyes Ascorbic Acid (Ascorbic Acid 500 Mg Tablet) 500 mg PO BID [facility] Last Admin: 08/12/24 11:02 Dose: 500 mg Bisacodyl (Bisacodyl 10 Mg Supp.Rect) 10 mg NE DAILY PRN PRN Reason: Constipation Calcium Carbonate (Calcium Carbonate 750 Mg Tab.Chew) 750 mg PO Q4H PRN PRN Reason: Heartburn Collagenase (Collagenase Clostridium Hist. 30 Gm Tube) 1 appl TOPICAL DAILY [facility]; Protocol Last Admin: 08/12/24 11:03 Dose: Not Given Docusate Sodium (Docusate Sodium 100 Mg Capsule) 100 mg PO BID [facility] Last Admin: 08/12/24 11:03 Dose: 100 mg Doxazosin Mesylate (Doxazosin Mesylate 2 Mg Tablet) 4 mg PO BEDTIME [facility]; Protocol Last Admin: 08/11/24 20:27 Dose: Not Given Famotidine (Famotidine 20 Mg Tablet) 20 mg PO BEDTIME [facility] Last Admin: 08/11/24 20:27 Dose: Not Given Ferrous Sulfate (Ferrous Sulfate 324 Mg Tablet.Dr) 324 mg PO BID [facility] Last Admin: 08/12/24 11:01 Dose: 324 mg Finasteride (Finasteride 5 Mg Tablet) 5 mg PO DAILY [facility] Last Admin: 08/12/24 11:03 Dose: 5 mg Gabapentin (Gabapentin 100 Mg Capsule) 100 mg PO BID [facility] Last Admin: 08/12/24 11:02 Dose: 100 mg Dextrose/Lactated Ringer's (D5lr) 1,000 mls @ 100 mls/hr IVCONT .Q10H [facility] Last Admin: 08/12/24 10:39 Dose: Not Given Levothyroxine Sodium (Levothyroxine Sodium 100 Mcg Tablet) 100 mcg PO DAILY@0600 [facility] Last Admin: 08/12/24 05:58 Dose: 100 mcg Magnesium Hydroxide (Milk Of Magnesia 30 Ml Oral.Susp) 30 ml PO DAILY PRN PRN Reason: Constipation Melatonin (Melatonin 3 Mg Tablet) 6 mg PO BEDTIME PRN PRN Reason: Insomnia Melatonin (Melatonin 3 Mg Tablet) 9 mg PO BEDTIME [facility] Last Admin: 08/11/24 20:28 Dose: Not Given Meropenem (Meropenem 1 Gm Vial) 0.5 gm IVPUSH Q12H [facility] Last Admin: 08/12/24 03:04 Dose: 0.5 gm Multivitamins/Vitamin C (Multivitamin Tablet) 1 tab PO DAILY [facility] Last Admin: 08/12/24 11:01 Dose: 1 tab Nystatin (Nystatin Powder 15 Gm Bottle) 1 appl TOPICAL BID [facility]; Protocol Last Admin: 08/12/24 11:04 Dose: 1 appl Omeprazole (Omeprazole 20 Mg Capsule.Dr) 20 mg PO BID@0630,1630 [facility] Last Admin: 08/12/24 05:58 Dose: 20 mg Ondansetron HCl (Ondansetron Hcl 4 Mg/2 Ml Vial) 4 mg IVPUSH Q8H PRN PRN Reason: Nausea and Vomiting Polyethylene Glycol (Polyethylene Glycol 3350 17 Gm Powd.Pack) 17 gm PO DAILY [facility] Last Admin: 08/12/24 11:04 Dose: Not Given Senna (Sennosides 8.6 Mg Tablet) 17.2 mg PO BEDTIME [facility] Last Admin: 08/11/24 20:28 Dose: Not Given Sodium Biphosphate/Sodium Phosphate (Sodium Phosphate,[place]-Dibasic 133 Ml Enema) 118 ml NE DAILY PRN PRN Reason: Constipation Sodium Chloride (0.9 % Sodium Chloride Flush 3 Ml Syringe) 3 ml IVFLUSH QSHIFT [facility] Last Admin: 08/12/24 07:19 Dose: Not Given Thiamine HCl (Thiamine Hcl 100 Mg Tablet) 100 mg PO DAILY [facility] Last Admin: 08/12/24 11:01 Dose: 100 mg Zinc Sulfate (Zinc Sulfate 220 Mg Capsule) 50 mg PO DAILY [facility] Last Admin: 08/12/24 11:02 Dose: Not Given <Alysa Thapa PA-C - Last Filed: 08/12/24 15:16> Home medications: Home Medications ?Medication ?Instructions ?Recorded ?Confirmed ?Last Taken ?Type acetaminophen 325 mg tablet 975 mg PO Q6H PRN Pain/Fever 06/26/24 08/11/24 Unknown History albuterol sulfate 2.5 mg/3 mL 2.5 mg inhalation Q4H PRN 06/26/24 08/11/24 Unknown History (0.083 %) solution for nebulization Shortness Of Breath Or Wheezing amiodarone 200 mg tablet 200 mg PO DAILY 06/26/24 08/11/24 Unknown History amlodipine 10 mg tablet 10 mg PO DAILY 06/26/24 08/11/24 Unknown History ascorbic acid (vitamin C) 500 mg 500 mg PO BID 06/26/24 08/11/24 Unknown History tablet bisacodyl 10 mg rectal suppository 10 mg NE DAILY PRN Constipation 06/26/24 08/11/24 Unknown History docusate sodium 100 mg tablet 100 mg PO BID 06/26/24 08/11/24 Unknown History famotidine 20 mg tablet 20 mg PO BEDTIME 06/26/24 08/11/24 Unknown History ferrous sulfate 325 mg (65 mg 325 mg PO BID 06/26/24 08/11/24 Unknown History iron) tablet gabapentin 100 mg capsule 100 mg PO BID 06/26/24 08/11/24 Unknown History levothyroxine 100 mcg tablet 100 mcg PO DAILY@0600 06/26/24 08/11/24 Unknown History magnesium hydroxide 400 mg/5 mL 30 ml PO Q72H PRN Constipation 06/26/24 08/11/24 Unknown History oral suspension (Milk of Magnesia) melatonin 5 mg tablet 10 mg PO BEDTIME 06/26/24 08/11/24 Unknown History nystatin 100,000 unit/gram topical 1 appl topical BID 06/26/24 08/11/24 Unknown History powder polyvinyl alcohol 1.4 % eye drops 1 drp ophthalmic (eye) Q6H PRN Dry 06/26/24 08/11/24 Unknown History Eyes sennosides 8.6 mg tablet (senna) 17.2 mg PO BEDTIME 06/26/24 08/11/24 Unknown History thiamine HCl (vitamin B1) 100 mg 100 mg PO DAILY 06/26/24 08/11/24 Unknown History tablet (Vitamin B-1) Lactobacillus acidoph-L.bulgaricus 1 tab PO BID 08/11/24 08/11/24 Unknown History 1 million cell tablet Lactobacillus acidophilus 2,000 mmu cells PO BID 08/11/24 08/11/24 Unknown History (Acidophilus capsule) apixaban 2.5 mg tablet (Eliquis) 2.5 mg PO BID 08/11/24 08/11/24 Unknown History cefuroxime axetil 250 mg tablet 250 mg PO BID 08/11/24 08/11/24 Unknown History collagenase clostridium histo. 250 1 appl topical DAILY 08/11/24 08/11/24 Unknown History unit/gram topical ointment (Santyl) menthol 5 % topical patch (Cold 1 patch topical DAILY 08/11/24 08/11/24 Unknown History and Hot (menthol)) multivitamin with minerals 1 tab PO DAILY 08/11/24 08/11/24 Unknown History ondansetron HCl 4 mg tablet 4 mg PO Q8H PRN Nausea And Vomiting 08/11/24 08/11/24 Unknown History sodium phosphates 19 gram-7 118 ml NE DAILY PRN Constipation 08/11/24 08/11/24 Unknown History gram/118 mL enema (Fleet Enema) zinc acetate 50 mg (zinc) capsule 50 mg PO DAILY 08/11/24 08/11/24 Unknown History <MARYCARMEN Beck Last Filed: 08/12/24 15:16> Physical Exam 2 Vital Signs: Vital Signs: Last Vital Signs Temp 97.0 F 08/12/24 11:05 Pulse 71 08/12/24 11:05 Resp 15 08/12/24 11:05 BP 105/62 08/12/24 11:05 Pulse Ox 98 08/12/24 07:35 O2 Del Method Nasal Cannula 08/12/24 07:35 O2 Flow Rate 1 08/12/24 07:35 BMI result Body Mass Index 28.5 <MARYCARMEN Beck Last Filed: 08/12/24 15:16> Const: General: cooperative, no acute distress and alert <MARYCARMEN Beck Last Filed: 08/12/24 15:16> Resp: Effort & Inspection: normal respiratory effort <MARYCARMEN Beck Last Filed: 08/12/24 15:16> GI: Other: abd soft, nondistended PEG tube in place <MARYCARMEN Beck Last Filed: 08/12/24 15:16> Skin: Other: large sacral decubitus ulcer with necrotic tissue, tunnels/undermines superiorly and laterally, good exam hard to obtain due to patient's discomfort <MARYCARMEN Beck Last Filed: 08/12/24 15:16> Results Labs Result diagrams: 08/12/24 05:21 08/12/24 05:21 <MARYCARMEN Beck Last Filed: 08/12/24 15:16> Labs: Abnormal lab results 08/11/24 08/11/24 08/11/24 Range/Units 16:34 17:00 17:07 RBC 2.34 L (4.60-5.80) X10*6/uL Hgb 6.1 L* (14.0-18.0) g/dl Hct 20.4 L* (42.0-52.0) % MCH 26.1 L (27.0-33.0) pg MCHC 29.9 L (31.0-36.0) g/dl RDW 19.9 H (11.0-16.0) % MPV 9.2 L (9.4-12.4) fL Absolute Nucleated RBC (0.0-0.012) X10*3/uL ABG pCO2 at Pt Temp 31 L (32-45) mmHg Chloride 115 H (96-108) mmol/L Carbon Dioxide 21 L (22-29) mmol/L Anion Gap (12-20) BUN 30 H (9-16) mg/dL Creatinine 1.81 H (0.5-1.4) mg/dL Calcium 8.3 L (8.4-10.2) mg/dL Crossmatch See Detail 08/12/24 Range/Units 05:21 RBC 2.71 L (4.60-5.80) X10*6/uL Hgb 7.4 L D (14.0-18.0) g/dl Hct 23.7 L (42.0-52.0) % MCH (27.0-33.0) pg MCHC (31.0-36.0) g/dl RDW 18.9 H (11.0-16.0) % MPV 9.1 L (9.4-12.4) fL Absolute Nucleated RBC 0.020 H (0.0-0.012) X10*3/uL ABG pCO2 at Pt Temp (32-45) mmHg Chloride 116 H (96-108) mmol/L Carbon Dioxide (22-29) mmol/L Anion Gap 11 L (12-20) BUN 27 H (9-16) mg/dL Creatinine 1.58 H (0.5-1.4) mg/dL Calcium 8.2 L (8.4-10.2) mg/dL Crossmatch Short CBC 08/11/24 08/12/24 Range/Units 17:00 05:21 WBC 7.7 8.0 (4.8-10.8) X10*3/uL Hgb 6.1 L* 7.4 L D (14.0-18.0) g/dl Hct 20.4 L* 23.7 L (42.0-52.0) % Plt Count 277 312 (160-400) X10*3/uL BMP 08/11/24 08/12/24 17:00 05:21 Sodium 144 145 Potassium 3.9 3.7 Chloride 115 H 116 H Carbon Dioxide 21 L 22 BUN 30 H 27 H Creatinine 1.81 H 1.58 H Calcium 8.3 L 8.2 L Urine 08/10/24 Range/Units 23:48 Urine Color Yellow Urine Appearance Turbid Urine pH 6.0 (5.0-9.0) Ur Specific [place] 1.025 (1.005-1.025) Urine Protein 100 (2+) H (Neg-Trace) mg/dL Urine Glucose (UA) Negative (Negative) mg/dL All other labs normal. <Alysa Thapa PA-C - Last Filed: 08/12/24 15:16> Assessment and Plan (1) Unstageable decubitus ulcer: Qualifiers: Pressure injury location: sacral region Qualified Code(s): L89.150 - Pressure ulcer of sacral region, unstageable <MARYCARMEN Beck Last Filed: 08/12/24 15:16> Status: Acute <Alysa Thapa PA-C - Last Filed: 08/12/24 15:16> 84 year old male with multiple PMH including PAF, HFrEF, HTN, CKD III, GALLITO, GERD admitted for UTI, with acute metabolic encephalopathy and sepsis with large unstageable sacral decubitus ulcer. Recommended debridement of the ulcer in the OR with anesthesia. This has been scheduled tenatively for tomorrow if labs allow. He is in agreement. Continue offloading, nutritional support, wound care consult. <Alysa Thapa PA-C - Last Filed: 08/12/24 15:16> 84 year old male with multiple PMH including PAF, HFrEF, HTN, CKD III, GALLITO, GERD admitted for UTI, with acute metabolic encephalopathy and sepsis with large unstageable sacral decubitus ulcer. Recommended debridement of the ulcer in the OR with anesthesia. This has been scheduled tenatively for tomorrow if labs allow. He is in agreement. Continue offloading, nutritional support, wound care consult. Patient seen and examined independently and agree with the above assessment and plan. Patient scheduled for OR tomorrow for debridement under anesthesia. <Ferdinand Gonzáles MD - Last Filed: 08/12/24 15:28> Procedures Date of Service Date of Service: 08/12/24 <Alysa Thapa PA-C - Last Filed: 08/12/24 15:16> 08/12/24 <Ferdinand Gonzáles MD - Last Filed: 08/12/24 15:28>
--- NOTE | 2024-08-12 13:43 | MHC.CLN ---
NUTRITION CONSULT FOR WOUND. DIET=REGULAR. INCREASED NUTRITION NEEDS DUE TO PRESSURE INJURIES, UNSTAGEABLE AREAS TO RIGHT HEEL AND SACRUM. PATIENT WITH COMPLICATED MEDICAL HX INCLUDING PRIOR TRACH PLACEMENT AND HAS PEG NOT IN USE. SIGNIFICANT WEIGHT LOSS X 6 MONTHS, -14.3%. DOES NOT APPEAR TO BE MALNOURISHED. ADDING ENSURE MAX BID TO INCREASE PROTEIN INTAKE AND PROMOTE WOUND HEALING. FOLLOW FOR PO INTAKE AND SKIN INTEGRITY. SEE CLINICAL NUTRITION ASSESSMENT 08/12/24.
--- NOTE | 2024-08-12 14:37 | MHC.SLORD ---
Speech Language Pathology Order Status: Pt sleeping when HOSIERY BAGGER arrived. RN consulted, noted pt has been tolerating meds, liquids and meals without s/s of aspiration. HOSIERY BAGGER to evaluate as indicated.
[2024-08-12] MEDS: traMADoL HCL 50 MG TABLET 25 MG PO ×2 (14:43→22:08)
--- NOTE | 2024-08-12 17:34 | HO.WOUND ---
Wound Consult: Initial 84yr old? male admitted to [facility] on 08/11/24 - See progress notes and H&P for detailed history.? Wound consult placed for coccyx wound, bilateral heels and right ankle wound POA.? Patient agreeable to assessment and photo documentation.? Sacrum - not assessed - last admission was noted for unstageable pressure injury wound - the wound was assessed today but general surgery and is planned for OR debirdement tomorrow. Will defer topical recommendations at this time to General surgery team will follow along. Right Heel 08/12/24 Etiology: Unstageable Pressure injury??Present on Admission Wound Bed: black dry intact wound bed Drainage / Odor: none Edges: ? well defined Shirley wound: ?red pink dry tissue - No Induration, Fluctuance or Warmth noted Pain: pain reported Goals of Treatment: ?Durafiber AG and dry gauze dressing to keep dry - heels off loaded with heel boot protectors already in place Right Ankle - Malleolus Etiology: Unstageable Pressure injury??Present on Admission Wound Bed: black dry intact wound bed Drainage / Odor: none Edges: ? well defined Shirley wound: ? dry intact tissue - No Induration, Fluctuance or Warmth noted Pain: pain reported Goals of Treatment: ? off loaded with heel boot protectors already in place Left heel - pink intact tissue noted hyperpigmentaiton noted unclear etiology at this time Left Ankle Etiology: Stage 1 Pressure injury??Present on Admission Wound Bed: red maroon intact nonblanchable tissue Drainage / Odor: none Edges: ? attached [place] wound: ? dry intact pink slow to brendan tissue - No Induration, Fluctuance or Warmth noted Pain: denies Goals of Treatment: ? off loaded with heel boot protectors already in place Recommendations: 1. Turn and Reposition every 2 hours and as needed for patient comfort.? Use pillows or wedges to support off loading positions. 2. Off Load all bony prominences with use of pillows and heel boots if needed.? Apply Preventative foams where needed. ? 3. Monitor for incontinence and moisture control, use barrier creams when needed for prevention and treatment. 4. Provide adequate and supplemental nutrition.? 5. Continue low air loss mattress. 6. When applicable maintain blood glucose levels per Providers order. 7. Sacrum - Off Load Pressure with Q2hr turns - Defer to General Surgery team topical orders. 8. Bilateral Heels and ankles - Elevate heels off of bed surface with heel protector boots alreayd in use. Apply skin prep to heels, Cover right heel with Durafiber AG, Dry gauze, Dry ABd pad and gauze wrap. Change every other day. Re-consult wound care Nurse for wound deterioration or wound changes.
[2024-08-12] MEDS: Famotidine 20 MG TABLET PO (20:28)
[2024-08-12] MEDS: Sennosides 8.6 MG TABLET 17.2 MG PO (20:28)
[2024-08-13] VITALS (11 sets, daily range): BP systolic 100–123; BP diastolic 43–62; PULSE 67–84; RESP 14–20; TEMP 36–36.7; O2SAT 91–98
[2024-08-13] MEDS: Meropenem 1 GM VIAL 0.5 GM IVPUSH (03:27)
[2024-08-13] MEDS: Omeprazole 20 MG CAPSULE.DR PO ×2 (05:25→15:50)
[2024-08-13] MEDS: Levothyroxine Sodium 100 MCG TABLET PO (05:25)
[2024-08-13] MEDS: Dextrose 5 % and Lactated Ring 1,000 ML 100 ML IVCONT (05:25)
[2024-08-13 06:22] LABS: Hematocrit 26.8 % (42.0-52.0); Hemoglobin 8.4 g/dl (14.0-18.0); Mean Corpuscular HGB Conc 31.3 g/dl (31.0-36.0); Mean Corpuscular Hemoglobin 27.6 pg (27.0-33.0); Mean Corpuscular Volume 88.2 fL (80.0-98.0); Mean Platelet Volume 8.8 fL (9.4-12.4); Platelet Count 344 X10*3/uL (160-400); Red Blood Count 3.04 X10*6/uL (4.60-5.80); White Blood Count 8.4 X10*3/uL (4.8-10.8)
[2024-08-13 06:23] LABS: Anion Gap 12 (12-20); Blood Urea Nitrogen 21 mg/dL (9-16); Calcium 8.4 mg/dL (8.4-10.2); Carbon Dioxide 23 mmol/L (22-29); Chloride 116 mmol/L (96-108); Creatinine Clr Calc Pharmacy 44.3; Estimated Glomerular Filt Rate 44; Glucose Random 89 mg/dL (60-115); Potassium 4.2 mmol/L (3.3-5.1); Sodium 147 mmol/L (135-145)
--- NOTE | 2024-08-13 08:01 | MHC.SHP ---
Pre-Procedural Eval Section A - 24 Hr Update-Section A only Date of Service: 08/13/24 The patient is an INPATIENT: Yes Changes since office visit: Yes Patient answered all questions; No Cold of Flu in the past 2 weeks, No New Medical Problems and No Changes in Medication Section B - Complete if H&P > 30 days Chief Complaint: AMS, UTI Allergies: Allergies Allergy/AdvReac Type Severity Reaction Status Date / Time ibuprofen [IBUPROFEN] Allergy Intermediate HIVES Verified 08/10/24 23:34 hydromorphone [From DILAUDID] AdvReac Intermediate ILEUS Verified 08/10/24 23:34 procaine [From Novocain] AdvReac Intermediate has no Verified 08/10/24 23:34 numbing effect-states monocain works narcotic pain meds AdvReac Intermediate does not Uncoded 08/10/24 23:34 relieve pain per patient Plan Diagnosis/Plan: Unchanged I have reviewed the history and physical and performed a pertinent physical examination on my patient. No changes have occurred unless specified. Time Spent With Patient Time: Total time managing care of this patient today ____ minutes.
[2024-08-13] MEDS: Ascorbic Acid 500 MG TABLET PO ×2 (08:36→19:43)
[2024-08-13] MEDS: Gabapentin 100 MG CAPSULE PO ×2 (08:36→19:46)
[2024-08-13] MEDS: amLODIPine Besylate 10 MG TABLET PO (08:36)
[2024-08-13] MEDS: Thiamine HCL 100 MG TABLET PO (08:36)
[2024-08-13] MEDS: Multivitamin TABLET 1 TAB PO (08:36)
[2024-08-13] MEDS: Amiodarone HCL 200 MG TABLET PO (08:37)
[2024-08-13] MEDS: Ferrous Sulfate 324 MG TABLET.DR PO ×2 (08:37→19:45)
[2024-08-13] MEDS: Finasteride 5 MG TABLET PO (08:37)
[2024-08-13] MEDS: Nystatin Powder 15 GM BOTTLE 1 APPL TOPICAL ×2 (08:45→23:04)
--- NOTE | 2024-08-13 12:50 | P.CONAN_ITS ---
HPI - Anesthesia Eval Consult details Narrative: For debridement sacral decubitus ulcer PMFSH Active Problems Active Problems: All Active Problems Unstageable decubitus ulcer (Acute) Acute lactic acidosis (Acute) Urinary tract infection (Acute) Encephalopathy due to infection (Acute) Bilateral hydronephrosis (Acute) History of ESBL E. coli infection (Acute) Acute UTI (Acute) Status post tracheostomy (Acute) Failure to wean from mechanical ventilation (Acute) Encephalopathy (Acute) Atrial fibrillation (Acute) Coronary artery disease (Acute) Acute respiratory failure with hypoxia (Acute) Aspiration pneumonia (Acute) Pneumonia (Acute) Cardiomyopathy (Acute) Nonrheumatic aortic (valve) stenosis (Acute) Atherosclerotic cardiovascular disease (Acute) PAF (paroxysmal atrial fibrillation) (Acute) LLQ abdominal pain (Acute) NSTEMI (non-ST elevated myocardial infarction) (Acute) Chest pain (Acute) Hyperkalemia (Acute) Atrial flutter with rapid ventricular response (Acute) CKD (chronic kidney disease) (Acute) PRABHU (acute kidney injury) (Acute) Renal stone (Acute) Ureteral stone with hydronephrosis (Acute) Influenza B (Acute) Murmur, heart (Acute) HTN (hypertension) (Acute) Sleep apnea (Acute) Elevated PSA (Acute) BPH loc w urin obs/LUTS (Acute) Past Medical History Medical History (Updated 08/12/24 @ 15:27 by Ferdinand Gonzáles MD) Delirium Altered mental status Sepsis Atherosclerotic cardiovascular disease PAF (paroxysmal atrial fibrillation) NSTEMI (non-ST elevated myocardial infarction) Chronic renal disease, stage 3, moderately decreased glomerular filtration rate (GFR) between 30-59 mL/min/1.73 square meter Chest pain Heart failure Thyroid disease GERD (gastroesophageal reflux disease) On anticoagulant therapy COVID-19 vaccine series completed Symptomatic cholelithiasis HTN (hypertension) Hyperlipidemia Atrial fibrillation Sleep apnea Elevated PSA Facet arthropathy, cervical BPH loc w urin obs/LUTS Family History Family History Unknown No problems noted. Family history of problems with anesthesia: No Surgical History Surgical History (Updated 08/12/24 @ 12:09 by Alysa Thapa PA-C) S/P percutaneous endoscopic gastrostomy (PEG) tube placement Hx of tracheostomy S/P laparoscopic cholecystectomy Hx of cataract extraction History of total replacement of both hip joints Hx of cystoscopy H/O colonoscopy History of surgery History of Problems with Anesthesia: No Social History Social History Household Members: Unknown / Unable to assess Housing: Unknown / Unable to assess Are you a primary transitional care nurse to a significant other at home: No Do you presently have visiting nurse or other home services: No Alcohol intake: never Comment: patient is chair, bedbound Patient Tobacco Use Status: Never used Tobacco Use of substances other than those prescribed or required for medical reasons: No Currently Displaying Signs/Symptoms of Drug Intoxication Withdrawal: No Are you DNR?: No Advance Directives: Yes Advance Directives on File: Yes Advance Directives Date on File: 03/07/24 Do you have a plan to hurt others: No Plan Recently lost weight without trying: Unsure How much weight loss: Unsure Nutrition Risks: No Nutritional Risk service: No Current occupational status: retired Meds Allergies Allergy/AdvReac Type Severity Reaction Status Date / Time ibuprofen [IBUPROFEN] Allergy Intermediate HIVES Verified 08/10/24 23:34 hydromorphone [From DILAUDID] AdvReac Intermediate ILEUS Verified 08/10/24 23:34 procaine [From Novocain] AdvReac Intermediate has no Verified 08/10/24 23:34 numbing effect-states monocain works narcotic pain meds AdvReac Intermediate does not Uncoded 08/10/24 23:34 relieve pain per patient Active Medications: Current Medications Acetaminophen (Acetaminophen 325 Mg Tablet) 650 mg PO Q6H PRN PRN Reason: Pain, Mild 1-3,fever,headache Albuterol Sulfate (Albuterol Sulfate (0.083%) 2.5 Mg/3 Ml Vial.Neb) 2.5 mg INHALE Q4H PRN PRN Reason: Shortness Of Breath Or Wheezing Amiodarone HCl (Amiodarone Hcl 200 Mg Tablet) 200 mg PO DAILY AIDAN Last Admin: 08/13/24 08:37 Dose: 200 mg Amlodipine Besylate (Amlodipine Besylate 10 Mg Tablet) 10 mg PO DAILY [facility]; Protocol Last Admin: 08/13/24 08:36 Dose: 10 mg Artificial Tears (Artificial Tears 15 Ml Drops) 1 drop EYE-BOTH Q6H PRN PRN Reason: Dry Eyes Ascorbic Acid (Ascorbic Acid 500 Mg Tablet) 500 mg PO BID [facility] Last Admin: 08/13/24 08:36 Dose: 500 mg Bisacodyl (Bisacodyl 10 Mg Supp.Rect) 10 mg VT DAILY PRN PRN Reason: Constipation Calcium Carbonate (Calcium Carbonate 750 Mg Tab.Chew) 750 mg PO Q4H PRN PRN Reason: Heartburn Collagenase (Collagenase Clostridium Hist. 30 Gm Tube) 1 appl TOPICAL DAILY [facility]; Protocol Last Admin: 08/13/24 09:44 Dose: Not Given Docusate Sodium (Docusate Sodium 100 Mg Capsule) 100 mg PO BID [facility] Last Admin: 08/13/24 08:40 Dose: Not Given Doxazosin Mesylate (Doxazosin Mesylate 2 Mg Tablet) 4 mg PO BEDTIME [facility]; Protocol Last Admin: 08/12/24 20:28 Dose: Not Given Famotidine (Famotidine 20 Mg Tablet) 20 mg PO BEDTIME [facility] Last Admin: 08/12/24 20:28 Dose: 20 mg Ferrous Sulfate (Ferrous Sulfate 324 Mg Tablet.) 324 mg PO BID [facility] Last Admin: 08/13/24 08:37 Dose: 324 mg Finasteride (Finasteride 5 Mg Tablet) 5 mg PO DAILY [facility] Last Admin: 08/13/24 08:37 Dose: 5 mg Gabapentin (Gabapentin 100 Mg Capsule) 100 mg PO BID [facility] Last Admin: 08/13/24 08:36 Dose: 100 mg Dextrose/Lactated Ringer's (D5lr) 1,000 mls @ 100 mls/hr IVCONT .Q10H [facility] Last Infusion: 08/13/24 11:54 Dose: 0 mls/hr Levothyroxine Sodium (Levothyroxine Sodium 100 Mcg Tablet) 100 mcg PO DAILY@0600 [facility] Last Admin: 08/13/24 05:25 Dose: 100 mcg Magnesium Hydroxide (Milk Of Magnesia 30 Ml Oral.Susp) 30 ml PO DAILY PRN PRN Reason: Constipation Melatonin (Melatonin 3 Mg Tablet) 6 mg PO BEDTIME PRN PRN Reason: Insomnia Melatonin (Melatonin 3 Mg Tablet) 9 mg PO BEDTIME [facility] Last Admin: 08/12/24 20:29 Dose: Not Given Meropenem (Meropenem 1 Gm Vial) 0.5 gm IVPUSH Q12H [facility] [place] Last Admin: 08/13/24 03:27 Dose: 0.5 gm Multivitamins/Vitamin C (Multivitamin Tablet) 1 tab PO DAILY [facility] Last Admin: 08/13/24 08:36 Dose: 1 tab Nystatin (Nystatin Powder 15 Gm Bottle) 1 appl TOPICAL BID [facility]; Protocol Last Admin: 08/13/24 08:45 Dose: 1 appl Omeprazole (Omeprazole 20 Mg Capsule.Dr) 20 mg PO BID@0630,1630 [facility] [place] Last Admin: 08/13/24 05:25 Dose: 20 mg Ondansetron HCl (Ondansetron Hcl 4 Mg/2 Ml Vial) 4 mg IVPUSH Q8H PRN PRN Reason: Nausea and Vomiting Polyethylene Glycol (Polyethylene Glycol 3350 17 Gm Powd.Pack) 17 gm PO DAILY [facility] [place] Last Admin: 08/13/24 08:48 Dose: Not Given Senna (Sennosides 8.6 Mg Tablet) 17.2 mg PO BEDTIME [facility] [place] Last Admin: 08/12/24 20:28 Dose: 17.2 mg Sodium Biphosphate/Sodium Phosphate (Sodium Phosphate,Blair-Dibasic 133 Ml Enema) 118 ml VT DAILY PRN PRN Reason: Constipation Sodium Chloride (0.9 % Sodium Chloride Flush 3 Ml Syringe) 3 ml IVFLUSH QSHIFT [facility] [place] Last Admin: 08/13/24 08:47 Dose: Not Given Thiamine HCl (Thiamine Hcl 100 Mg Tablet) 100 mg PO DAILY [facility] [place] Last Admin: 08/13/24 08:36 Dose: 100 mg Tramadol HCl (Tramadol Hcl 50 Mg Tablet) 25 mg PO Q6H PRN PRN Reason: Pain, Severe (Pain Scale 7-10) Last Admin: 08/12/24 22:08 Dose: 25 mg Zinc Sulfate (Zinc Sulfate 220 Mg Capsule) 220 mg PO DAILY [facility] Home Medications ?Medication ?Instructions ?Recorded ?Confirmed ?Last Taken ?Type acetaminophen 325 mg tablet 975 mg PO Q6H PRN Pain/Fever 06/26/24 08/11/24 Unknown History albuterol sulfate 2.5 mg/3 mL 2.5 mg inhalation Q4H PRN 06/26/24 08/11/24 Unknow n History (0.083 %) solution for nebulization Shortness Of Breath Or Wheezing amiodarone 200 mg tablet 200 mg PO DAILY 06/26/24 08/11/24 Unknown History amlodipine 10 mg tablet 10 mg PO DAILY 06/26/24 08/11/24 Unknown History ascorbic acid (vitamin C) 500 mg 500 mg PO BID 06/26/24 08/11/24 Unknown History tablet bisacodyl 10 mg rectal suppository 10 mg VT DAILY PRN Constipation 06/26/24 08/11/24 Unknown History docusate sodium 100 mg tablet 100 mg PO BID 06/26/24 08/11/24 Unknown History famotidine 20 mg tablet 20 mg PO BEDTIME 06/26/24 08/11/24 Unknown History ferrous sulfate 325 mg (65 mg 325 mg PO BID 06/26/24 08/11/24 Unknown History iron) tablet gabapentin 100 mg capsule 100 mg PO BID 06/26/24 08/11/24 Unknown History levothyroxine 100 mcg tablet 100 mcg PO DAILY@0600 06/26/24 08/11/24 Unknown History magnesium hydroxide 400 mg/5 mL 30 ml PO Q72H PRN Constipation 06/26/24 08/11/24 Unknown History oral suspension (Milk of Magnesia) melatonin 5 mg tablet 10 mg PO BEDTIME 06/26/24 08/11/24 Unknown History nystatin 100,000 unit/gram topical 1 appl topical BID 06/26/24 08/11/24 Unknown History powder polyvinyl alcohol 1.4 % eye drops 1 drp ophthalmic (eye) Q6H PRN Dry 06/26/24 08/11/24 Unknown History Eyes sennosides 8.6 mg tablet (senna) 17.2 mg PO BEDTIME 06/26/24 08/11/24 Unknown History thiamine HCl (vitamin B1) 100 mg 100 mg PO DAILY 06/26/24 08/11/24 Unknown History tablet (Vitamin B-1) Lactobacillus acidoph-L.bulgaricus 1 tab PO BID 08/11/24 08/11/24 Unknown History 1 million cell tablet Lactobacillus acidophilus 2,000 mmu cells PO BID 08/11/24 08/11/24 Unknown History (Acidophilus capsule) apixaban 2.5 mg tablet (Eliquis) 2.5 mg PO BID 08/11/24 08/11/24 Unknown History cefuroxime axetil 250 mg tablet 250 mg PO BID 08/11/24 08/11/24 Unknown History collagenase clostridium histo. 250 1 appl topical DAILY 08/11/24 08/11/24 Unknown History unit/gram topical ointment (Santyl) menthol 5 % topical patch (Cold 1 patch topical DAILY 08/11/24 08/11/24 Unknown History and Hot (menthol)) multivitamin with minerals 1 tab PO DAILY 08/11/24 08/11/24 Unknown History ondansetron HCl 4 mg tablet 4 mg PO Q8H PRN Nausea And Vomiting 08/11/24 08/11/24 Unknown History sodium phosphates 19 gram-7 118 ml VT DAILY PRN Constipation 08/11/24 08/11/24 Unknown History gram/118 mL enema (Fleet Enema) zinc acetate 50 mg (zinc) capsule 50 mg PO DAILY 08/11/24 08/11/24 Unknown History Exam Height,Weight and Vital Signs: Height 6 ft 1 in Weight 98.1 kg Last Vital Signs Temp 98.0 F 08/13/24 12:17 Pulse 75 08/13/24 12:17 Resp 14 08/13/24 12:17 BP 102/43 L 08/13/24 12:17 Pulse Ox 95 08/13/24 12:17 O2 Del Method Room Air 08/13/24 12:17 O2 Flow Rate 1 08/12/24 07:35 Pertinent Lab Results Pertinent Lab Results: Laboratory Tests 08/10/24 08/10/24 08/10/24 23:39 23:48 23:57 WBC 10.1 RBC 2.87 L Hgb 7.5 L Hct 24.3 L MCV 84.7 MCH 26.1 L MCHC 30.9 L RDW 19.4 H Plt Count 357 D MPV 9.1 L Immature Gran % (Auto) 1.3 H Neut % (Auto) 63.4 Lymph % (Auto) 25.0 Blair % (Auto) 7.7 Eos % (Auto) 2.3 Baso % (Auto) 0.3 Lymph # (Auto) 2.5 Blair # (Auto) 0.8 Eos # (Auto) 0.2 Baso # (Auto) 0.0 Abs Immat Gran (auto) 0.13 H Absolute Neuts (auto) 6.4 Absolute Nucleated RBC 0.000 Nucleated RBC % (auto) 0.0 PT 17.1 H INR 1.5 H O2 Saturation ABG pH at Pt Temp ABG pCO2 at Pt Temp ABG pO2 at Pt Temp ABG HCO3 ABG Base Excess (Actual) Sodium 141 Potassium 4.1 Chloride 110 H Carbon Dioxide 20 L Anion Gap 15 BUN 33 H Creatinine 1.93 H Estim Creat Clear Calc 35.1 Estimated GFR 33 Random Glucose 92 Lactic Acid 2.3 H* Lactic Acid F/U @ 2Hr Lactic Acid F/U @ 4Hr Calcium 8.7 D Magnesium Total Bilirubin 0.3 AST 23 ALT < 6 Alkaline Phosphatase 114 Ammonia Troponin I High Sens 4.0 D B-Natriuretic Peptide 96 Total Protein 7.0 Albumin 2.3 L Hold Green Top Urine Color Yellow Urine Appearance Turbid Urine pH 6.0 Ur Specific [place] 1.025 Urine Protein 100 (2+) H Urine Glucose (UA) Negative Urine Ketones Negative Urine Blood Moderate (2+) H Urine Nitrite Negative Ur Leukocyte Esterase Large (3+) H Urine RBC 11-20 H Urine WBC >50 Ur Squamous Epith Cells 3-5 Ur Renal Epithelial Cell Present Urine Bacteria 4+ Hyaline Casts 3-5 Influenza Type A (PCR) NEGATIVE Influenza Type B (PCR) NEGATIVE RSV RNA Qual (PCR) NEGATIVE SARS-CoV-2 RNA (RT-PCR) NEGATIVE Blood Type Antibody Screen Crossmatch 08/11/24 08/11/24 08/11/24 02:12 04:25 05:40 WBC RBC Hgb Hct MCV MCH MCHC RDW Plt Count MPV Immature Gran % (Auto) Neut % (Auto) Lymph % (Auto) [place] % (Auto) Eos % (Auto) Baso % (Auto) Lymph # (Auto) [place] # (Auto) Eos # (Auto) Baso # (Auto) Abs Immat Gran (auto) Absolute Neuts (auto) Absolute Nucleated RBC Nucleated RBC % (auto) PT INR O2 Saturation ABG pH at Pt Temp ABG pCO2 at Pt Temp ABG pO2 at Pt Temp ABG HCO3 ABG Base Excess (Actual) Sodium 143 Potassium 3.5 Chloride 115 H Carbon Dioxide 19 L Anion Gap 13 BUN 30 H Creatinine 1.82 H Estim Creat Clear Calc 37.2 Estimated GFR 36 Random Glucose 113 Lactic Acid Lactic Acid F/U @ 2Hr 3.5 H* Lactic Acid F/U @ 4Hr 0.7 Calcium 8.0 L D Magnesium Total Bilirubin AST ALT Alkaline Phosphatase Ammonia Troponin I High Sens B-Natriuretic Peptide Total Protein Albumin Hold Green Top Urine Color Urine Appearance Urine pH Ur Specific [place] Urine Protein Urine Glucose (UA) Urine Ketones Urine Blood Urine Nitrite Ur Leukocyte Esterase Urine RBC Urine WBC Ur Squamous Epith Cells Ur Renal Epithelial Cell Urine Bacteria Hyaline Casts Influenza Type A (PCR) Influenza Type B (PCR) RSV RNA Qual (PCR) SARS-CoV-2 RNA (RT-PCR) Blood Type Antibody Screen Crossmatch 08/11/24 08/11/24 08/11/24 16:34 17:00 17:07 WBC 7.7 RBC 2.34 L Hgb 6.1 L* Hct 20.4 L* MCV 87.2 MCH 26.1 L MCHC 29.9 L RDW 19.9 H Plt Count 277 MPV 9.2 L Immature Gran % (Auto) Neut % (Auto) Lymph % (Auto) [place] % (Auto) Eos % (Auto) Baso % (Auto) Lymph # (Auto) [place] # (Auto) Eos # (Auto) Baso # (Auto) Abs Immat Gran (auto) Absolute Neuts (auto) Absolute Nucleated RBC 0.000 Nucleated RBC % (auto) 0.0 PT INR O2 Saturation 98.0 ABG pH at Pt Temp 7.45 ABG pCO2 at Pt Temp 31 L ABG pO2 at Pt Temp Not Reportable ABG HCO3 22 ABG Base Excess (Actual) -1.4 Sodium 144 Potassium 3.9 Chloride 115 H Carbon Dioxide 21 L Anion Gap 12 BUN 30 H Creatinine 1.81 H Estim Creat Clear Calc 37.4 Estimated GFR 36 Random Glucose 108 Lactic Acid 0.9 Lactic Acid F/U @ 2Hr Lactic Acid F/U @ 4Hr Calcium 8.3 L Magnesium Total Bilirubin AST ALT Alkaline Phosphatase Ammonia 51 Troponin I High Sens B-Natriuretic Peptide Total Protein Albumin Hold Green Top Urine Color Urine Appearance Urine pH Ur Specific [place] Urine Protein Urine Glucose (UA) Urine Ketones Urine Blood Urine Nitrite Ur Leukocyte Esterase Urine RBC Urine WBC Ur Squamous Epith Cells Ur Renal Epithelial Cell Urine Bacteria Hyaline Casts Influenza Type A (PCR) Influenza Type B (PCR) RSV RNA Qual (PCR) SARS-CoV-2 RNA (RT-PCR) Blood Type O Positive Antibody Screen NEGATIVE Crossmatch See Detail 08/12/24 08/13/24 05:21 05:43 WBC 8.0 8.4 RBC 2.71 L 3.04 L Hgb 7.4 L D 8.4 L Hct 23.7 L 26.8 L MCV 87.5 88.2 MCH 27.3 27.6 MCHC 31.2 31.3 RDW 18.9 H 19.0 H Plt Count 312 344 MPV 9.1 L 8.8 L Immature Gran % (Auto) Neut % (Auto) Lymph % (Auto) [place] % (Auto) Eos % (Auto) Baso % (Auto) Lymph # (Auto) [place] # (Auto) Eos # (Auto) Baso # (Auto) Abs Immat Gran (auto) Absolute Neuts (auto) Absolute Nucleated RBC 0.020 H 0.000 Nucleated RBC % (auto) 0.2 0.0 PT INR O2 Saturation ABG pH at Pt Temp ABG pCO2 at Pt Temp ABG pO2 at Pt Temp ABG HCO3 ABG Base Excess (Actual) Sodium 145 147 H Potassium 3.7 4.2 Chloride 116 H 116 H Carbon Dioxide 22 23 Anion Gap 11 L 12 BUN 27 H 21 H Creatinine 1.58 H 1.53 H Estim Creat Clear Calc 42.9 44.3 Estimated GFR 42 44 Random Glucose 94 89 Lactic Acid Lactic Acid F/U @ 2Hr Lactic Acid F/U @ 4Hr Calcium 8.2 L 8.4 Magnesium 2.0 Total Bilirubin AST ALT Alkaline Phosphatase Ammonia Troponin I High Sens B-Natriuretic Peptide Total Protein Albumin Hold Green Top See Note Urine Color Urine Appearance Urine pH Ur Specific [place] Urine Protein Urine Glucose (UA) Urine Ketones Urine Blood Urine Nitrite Ur Leukocyte Esterase Urine RBC Urine WBC Ur Squamous Epith Cells Ur Renal Epithelial Cell Urine Bacteria Hyaline Casts Influenza Type A (PCR) Influenza Type B (PCR) RSV RNA Qual (PCR) SARS-CoV-2 RNA (RT-PCR) Blood Type Antibody Screen Crossmatch Airway Mallampati Class: II TM Dist: <=3cm Neck ROM: Full Heart: Biventric CMOP w mild-mod . Echo from Feb reviewed. Lungs: ok Assessment and Plan Assessment Anesthesia Assessment: Anesthesia Plan Discussed and Chart Reviewed Final Anesthetic Review Family History of Problems with Anesthesia: No History of Problems with Anesthesia: No NPO: Yes ASA Class: IV Final Preanesthetic Review: No Changes in Pt Med Stat, Meds/Allgs Chart Reviewed, Consent Obtained/Reviewed and Anes Risks/Benef Reviewed Patient Risk: High Procedure Risk: Intermediate Anesthetic Plan Anesthetic Plan: MAC:, Agree w/ Assess. and Plan and TIVA Disposition: Standard PACU
--- NOTE | 2024-08-13 13:17 | P.PNIM_ITS ---
Subjective Subjective Date of Service: 08/13/24 Interval History: Being followed for sacral decubitus ulcer, and encephalopathy. Patient awake alert answering questions appropriately complaining of lower back pain due to sacral ulcers NPO for debridement by General surgery in OR. Review of Systems All other system reviewed and are negative. Physical Exam 2 Vital Signs: Vital Signs: Last Vital Signs Temp 98.0 F 08/13/24 12:17 Pulse 75 08/13/24 12:17 Resp 14 08/13/24 12:17 BP 102/43 L 08/13/24 12:17 Pulse Ox 95 08/13/24 12:17 O2 Del Method Room Air 08/13/24 12:17 O2 Flow Rate 1 08/12/24 07:35 BMI result Body Mass Index 28.5 Const: Other: Constitutional : Awake alert in no acute distress Anicteric sclera Neck no JVD Cardiovascular : Respiratory : No respiratory distress Gastrointestinal: G tube in place not in use, soft, non tender Skin : Warm, Dry Neurological : No focal deficit Objective Data Active Medications Acetaminophen (Acetaminophen 325 Mg Tablet) 650 mg PO Q6H PRN PRN Reason: Pain, Mild 1-3,fever,headache Acetaminophen (Acetaminophen 325 Mg Tablet) 975 mg PO ONCE PRN PRN Reason: Pain, Mild (Pain Scale 1-3) Stop: 08/13/24 19:15 Albuterol Sulfate (Albuterol Sulfate (0.083%) 2.5 Mg/3 Ml Vial.Neb) 2.5 mg INHALE Q4H PRN PRN Reason: Shortness Of Breath Or Wheezing Amiodarone HCl (Amiodarone Hcl 200 Mg Tablet) 200 mg PO DAILY [facility] Last Admin: 08/13/24 08:37 Dose: 200 mg Documented By: GREGORY Amlodipine Besylate (Amlodipine Besylate 10 Mg Tablet) 10 mg PO DAILY [facility]; Protocol Last Admin: 08/13/24 08:36 Dose: 10 mg Documented By: GREGORY Artificial Tears (Artificial Tears 15 Ml Drops) 1 drop EYE-BOTH Q6H PRN PRN Reason: Dry Eyes Ascorbic Acid (Ascorbic Acid 500 Mg Tablet) 500 mg PO BID [facility] Last Admin: 08/13/24 08:36 Dose: 500 mg Documented By: GREGORY Bisacodyl (Bisacodyl 10 Mg Supp.Rect) 10 mg [place] DAILY PRN PRN Reason: Constipation Calcium Carbonate (Calcium Carbonate 750 Mg Tab.Chew) 750 mg PO Q4H PRN PRN Reason: Heartburn Collagenase (Collagenase Clostridium Hist. 30 Gm Tube) 1 appl TOPICAL DAILY [facility]; Protocol Last Admin: 08/13/24 09:44 Dose: Not Given Documented By: GREGORY Non-Admin Reason: scheduled procedure Docusate Sodium (Docusate Sodium 100 Mg Capsule) 100 mg PO BID [facility] Last Admin: 08/13/24 08:40 Dose: Not Given Documented By: GREGORY Non-Admin Reason: Patient Refused Doxazosin Mesylate (Doxazosin Mesylate 2 Mg Tablet) 4 mg PO BEDTIME [facility]; Protocol Last Admin: 08/12/24 20:28 Dose: Not Given Documented By: BENJAMÍN Non-Admin Reason: Decreased Blood Pressure Famotidine (Famotidine 20 Mg Tablet) 20 mg PO BEDTIME [facility] Last Admin: 08/12/24 20:28 Dose: 20 mg Documented By: BENJAMÍN Fentanyl (Fentanyl Citrate/Pf 100 Mcg/2 Ml Vial) 50 mcg IVPUSH Q5M PRN PRN Reason: Pain, Moderate to Severe (Pain Scale 4-10) Stop: 08/13/24 19:15 Ferrous Sulfate (Ferrous Sulfate 324 Mg Tablet.) 324 mg PO BID [facility] Last Admin: 08/13/24 08:37 Dose: 324 mg Documented By: GREGORY Finasteride (Finasteride 5 Mg Tablet) 5 mg PO DAILY [facility] Last Admin: 08/13/24 08:37 Dose: 5 mg Documented By: GREGORY Gabapentin (Gabapentin 100 Mg Capsule) 100 mg PO BID [facility] Last Admin: 08/13/24 08:36 Dose: 100 mg Documented By: GREGORY Dextrose/Lactated Ringer's (D5lr) 1,000 mls @ 100 mls/hr IVCONT .Q10H [facility] Last Infusion: 08/13/24 11:54 Dose: 0 mls/hr Documented By: GREGORY Levothyroxine Sodium (Levothyroxine Sodium 100 Mcg Tablet) 100 mcg PO DAILY@0600 [facility] Last Admin: 08/13/24 05:25 Dose: 100 mcg Documented By: BENJAMÍN Magnesium Hydroxide (Milk Of Magnesia 30 Ml Oral.Susp) 30 ml PO DAILY PRN PRN Reason: Constipation Melatonin (Melatonin 3 Mg Tablet) 6 mg PO BEDTIME PRN PRN Reason: Insomnia Melatonin (Melatonin 3 Mg Tablet) 9 mg PO BEDTIME [facility] Last Admin: 08/12/24 20:29 Dose: Not Given Documented By: BENJAMÍN Non-Admin Reason: pt sleeps fine Meropenem (Meropenem 1 Gm Vial) 0.5 gm IVPUSH Q12H [facility] Last Admin: 08/13/24 03:27 Dose: 0.5 gm Documented By: BENJAMÍN Multivitamins/Vitamin C (Multivitamin Tablet) 1 tab PO DAILY [facility] Last Admin: 08/13/24 08:36 Dose: 1 tab Documented By: GREGORY Nystatin (Nystatin Powder 15 Gm Bottle) 1 appl TOPICAL BID [facility]; Protocol Last Admin: 08/13/24 08:45 Dose: 1 appl Documented By: GREGORY Omeprazole (Omeprazole 20 Mg Capsule.Dr) 20 mg PO BID@0630,1630 [facility] Last Admin: 08/13/24 05:25 Dose: 20 mg Documented By: BENJAMÍN Ondansetron HCl (Ondansetron Hcl 4 Mg/2 Ml Vial) 4 mg IVPUSH Q8H PRN PRN Reason: Nausea and Vomiting Ondansetron HCl (Ondansetron Hcl 4 Mg/2 Ml Vial) 4 mg IVPUSH ONCE PRN PRN Reason: Nausea and Vomiting Stop: 08/13/24 19:15 Oxycodone HCl (Oxycodone Hcl Immed Release 5 Mg Tablet) 5 mg PO ONCE PRN PRN Reason: Pain, Moderate(Pain Scale 4-6) Polyethylene Glycol (Polyethylene Glycol 3350 17 Gm Powd.Pack) 17 gm PO DAILY [facility] Last Admin: 08/13/24 08:48 Dose: Not Given Documented By: GREGORY Non-Admin Reason: Patient Refused Senna (Sennosides 8.6 Mg Tablet) 17.2 mg PO BEDTIME [facility] Last Admin: 08/12/24 20:28 Dose: 17.2 mg Documented By: BENJAMÍN Sodium Biphosphate/Sodium Phosphate (Sodium Phosphate,[place]-Dibasic 133 Ml Enema) 118 ml [place] DAILY PRN PRN Reason: Constipation Sodium Chloride (0.9 % Sodium Chloride Flush 3 Ml Syringe) 3 ml IVFLUSH QSHIFT [facility] Last Admin: 08/13/24 08:47 Dose: Not Given Documented By: GREGORY Non-Admin Reason: IV Running Thiamine HCl (Thiamine Hcl 100 Mg Tablet) 100 mg PO DAILY [facility] Last Admin: 08/13/24 08:36 Dose: 100 mg Documented By: GREGORY Tramadol HCl (Tramadol Hcl 50 Mg Tablet) 25 mg PO Q6H PRN PRN Reason: Pain, Severe (Pain Scale 7-10) Last Admin: 08/12/24 22:08 Dose: 25 mg Documented By: BENJAMÍN Zinc Sulfate (Zinc Sulfate 220 Mg Capsule) 220 mg PO DAILY [facility] Labs 08/13/24 05:43 08/13/24 05:43 Labs: Laboratory Results - last 24 hr 08/11/24 08/13/24 17:07 05:43 MCV 88.2 MCH 27.6 MCHC 31.3 RDW 19.0 H Plt Count 344 MPV 8.8 L Absolute Nucleated RBC 0.000 Nucleated RBC % (auto) 0.0 Anion Gap 12 Estim Creat Clear Calc 44.3 Estimated GFR 44 Random Glucose 89 Calcium 8.4 Crossmatch See Detail Microbiology Microbiology Results: Microbiology 08/10/24 23:57 Blood Culture - Preliminary Blood - Venous No growth after 48 hours. 08/10/24 23:39 Blood Culture - Preliminary Blood - Venous No growth after 48 hours. 08/11/24 Unknown Urine Culture - Final Urine clean catch - Clean Catch Midstream Assessment and Plan (1) Unstageable decubitus ulcer: Status: Acute (2) Acute lactic acidosis: Status: Acute (3) Urinary tract infection: Status: Acute (4) Encephalopathy due to infection: Status: Acute Plan 84M PMH PAF, HFrEF, HTN, CKD III, GALLITO, GERD, prolonged hospitalizations at [facility] 06/2024 for MDR UTI discharged on Meropenem, sent by SNF for alterd mentation and low BP readings. Acute urinary tract infection complicated with acute metabolic encephalopathy and sepsis recent MDR UTI w ESBL Klebsiella complicated with bacteremia. this admission Blood culture showed no growth, urine culture grew mixed bacterial nohemi on IV meropenem started on 08/11, will continue current antibiotic Acute encephalopathy resolved Chronic PEG not in use Acute lactic acidosis Likely secondary to sepsis, resolved with IV fluids. CKD 3 Stable Cr, monitor BMP Acute on chronic anemia multifactorial, chronic blood loss, inflammatory,and dilutional H/H dropped signficantly , status post 2 units of packed RBC hematocrit improved to 26.8. Stool guaiac negative. monitor H&H Paroxysmal atrial fibrillation resume Eliquis and Amiodarone if H&H drops again will discuss with patient and family regarding discontinuation of anticoagulation. hypothyroid synthroid Sacral Pressure Ulcers-NPO for debridement by General surgery/frequent position change DOG WARDEN eval before feeding, IVF for now DVT prophylaxis - resume Eliquis need for inpt: debridement of sacral decubitus ulcer at OR Full code: Family request 1 attempt at CPR Quality Stroke Does the patient have a stroke diagnosis?: No VTE Prior VTE?: No VTE Risk Level:: Medical - moderate - high VTE Device Contraindication: Treatment Not Indicated VTE Drug Contraindication: N/A - Med Ordered
--- NOTE | 2024-08-13 13:49 | W.PM.OPN ---
Operative Note Operative Note Date of Service: 08/13/24 Narrative: Preoperative diagnosis: Sacral decubitus ulcer Postoperative diagnosis: Same Procedure: Wide debridement sacral decubitus ulcer Surgeon: Ferdinand Gonzáles MD Senior Quality Technician: Alysa Thaap PA-C Anesthesia: Mac plus local Indications for procedure: 84-year-old male patient with an enlarging sacral decubitus ulcer with necrotic skin, subcutaneous tissue, muscle and bone presenting for wide debridement. Operative findings: Approximately 15 x 15 cm open wound in the mid sacrum on the left greater than right side extending approximately 3 cm deep with tunneling proximally 2 cm deep. Specimen: Ulcer was debrided down to viable tissue Estimated blood loss: 20 mL Complications: None Procedure details: Patient was brought to the OR and kept on his hospital bed. He was administered monitored anesthesia and rotated to a right lateral decubitus position. The sacral skin was prepped with Betadine and draped in a sterile fashion. A surgical time-out was called the consent confirmed. Patient has been on IV antibiotics. Electrocautery was then used to excise necrotic skin, subcutaneous tissue and muscle down to viable tissue. Dissection was continued down to the sacrum but did not include any bone. A large swath of necrotic skin and subcutaneous tissue and muscle was included in the excision. Hemostasis was then assured using electrocautery. Wounds were packed with Betadine soaked fluff gauze followed by dry fluff gauze and ABD pads. Paper tape was then applied. The patient tolerated the procedure well and was transferred to PACU in stable condition.
[2024-08-13] MEDS: 0.9 % Sodium Chloride Flush 3 ML SYRINGE IVFLUSH ×2 (15:50→19:48)
[2024-08-13] MEDS: traMADoL HCL 50 MG TABLET 25 MG PO ×2 (15:51→23:00)
[2024-08-13] MEDS: Meropenem 1 GM VIAL IVPUSH (16:30)
[2024-08-13] MEDS: Acetaminophen 325 MG TABLET 650 MG PO (19:42)
[2024-08-13] MEDS: Melatonin 3 MG TABLET 9 MG PO (19:43)
[2024-08-13] MEDS: Famotidine 20 MG TABLET PO (19:44)
[2024-08-13] MEDS: Docusate Sodium 100 MG CAPSULE PO (19:45)
[2024-08-13] MEDS: Sennosides 8.6 MG TABLET 17.2 MG PO (19:45)
[2024-08-13] MEDS: Doxazosin Mesylate 2 MG TABLET 4 MG PO (19:46)
[2024-08-13] MEDS: Apixaban 2.5 MG TABLET PO (19:47)
[2024-08-13] MEDS: polyethylene glycoL 3350 17 GM POWD.PACK PO (23:00)
[2024-08-14 03:18] VITALS: BP 103/56; PULSE 71; RESP 17; TEMP 36; O2SAT 95
[2024-08-14] MEDS: Acetaminophen 325 MG TABLET 650 MG PO ×2 (04:02→19:26)
[2024-08-14] MEDS: Omeprazole 20 MG CAPSULE.DR PO ×2 (04:02→15:35)
[2024-08-14] MEDS: Levothyroxine Sodium 100 MCG TABLET PO (04:02)
[2024-08-14] MEDS: Meropenem 1 GM VIAL IVPUSH ×2 (04:33→15:30)
[2024-08-14 07:46] VITALS: BP 100/60; PULSE 60; RESP 18; TEMP 36.1; O2SAT 92
--- NOTE | 2024-08-14 08:11 | HO.POSTANES ---
Post Anesthesia Evaluation Post Anesthesia Evaluation Date of Service: 08/14/24 Vital Signs: Vital Signs Temp Pulse Resp BP Pulse Ox O2 Del Method 08/14/24 07:46 96.9 F 60 18 100/60 92 Room Air 08/14/24 03:18 96.8 F 71 17 103/56 L 95 Room Air Anesthesia: Monitored Mental Status: Awake Pain Control: Satisfactory Nausea/Vomiting: None Hydration: Adequate Anesthesia-Related Issues: No Anes. Related Issues
[2024-08-14] MEDS: Apixaban 2.5 MG TABLET PO ×2 (08:15→19:26)
[2024-08-14] MEDS: Amiodarone HCL 200 MG TABLET PO (08:15)
[2024-08-14] MEDS: Finasteride 5 MG TABLET PO (08:15)
[2024-08-14] MEDS: Ascorbic Acid 500 MG TABLET PO ×2 (08:15→19:24)
[2024-08-14] MEDS: Gabapentin 100 MG CAPSULE PO ×2 (08:16→19:26)
[2024-08-14] MEDS: Ferrous Sulfate 324 MG TABLET.DR PO ×2 (08:16→19:26)
[2024-08-14] MEDS: Docusate Sodium 100 MG CAPSULE PO (08:16)
[2024-08-14] MEDS: Zinc Sulfate 220 MG CAPSULE PO (08:16)
[2024-08-14] MEDS: Multivitamin TABLET 1 TAB PO (08:16)
--- NOTE | 2024-08-14 08:22 | P.PNGS_ITS ---
Subjective Subjective Date of Service: 08/14/24 Interval history: Patient moderately confused this morning, denies pain in sacral area. Does not remember undergoing surgery. Physical Exam 2 Vital Signs: Vital Signs: Last Vital Signs Temp 96.9 F 08/14/24 07:46 Pulse 60 08/14/24 07:46 Resp 18 08/14/24 07:46 BP 100/60 08/14/24 07:46 Pulse Ox 92 08/14/24 07:46 O2 Del Method Room Air 08/14/24 07:46 O2 Flow Rate 1 08/12/24 07:35 BMI result Body Mass Index 28.5 Const: General: no acute distress and confusion Nutritional Appearance: a verage body habitus Orientation/consciousness: confusion Resp: Effort & Inspection: normal respiratory effort Back/Spine/Pelvis: Other: Dressings in place, patient laying on left side off of sacral wounds Back/spine/pelvis image: 1. Site of sacral decubitus, debridement Neuro: General: confusion Objective Data Active Medications Acetaminophen (Acetaminophen 325 Mg Tablet) 650 mg PO Q6H PRN PRN Reason: Pain, Mild 1-3,fever,headache Last Admin: 08/14/24 04:02 Dose: 650 mg Documented By: BLANCHE Albuterol Sulfate (Albuterol Sulfate (0.083%) 2.5 Mg/3 Ml Vial.Neb) 2.5 mg INHALE Q4H PRN PRN Reason: Shortness Of Breath Or Wheezing Amiodarone HCl (Amiodarone Hcl 200 Mg Tablet) 200 mg PO DAILY [facility] Last Admin: 08/13/24 08:37 Dose: 200 mg Documented By: GREGORY Amlodipine Besylate (Amlodipine Besylate 10 Mg Tablet) 10 mg PO DAILY [facility]; Protocol Last Admin: 08/13/24 08:36 Dose: 10 mg Documented By: GREGORY Apixaban (Apixaban 2.5 Mg Tablet) 2.5 mg PO BID [facility] Last Admin: 08/13/24 19:47 Dose: 2.5 mg Documented By: BLANCHE Artificial Tears (Artificial Tears 15 Ml Drops) 1 drop EYE-BOTH Q6H PRN PRN Reason: Dry Eyes Ascorbic Acid (Ascorbic Acid 500 Mg Tablet) 500 mg PO BID [facility] Last Admin: 08/13/24 19:43 Dose: 500 mg Documented By: BLANCHE Bisacodyl (Bisacodyl 10 Mg Supp.Rect) 10 mg [place] DAILY PRN PRN Reason: Constipation Calcium Carbonate (Calcium Carbonate 750 Mg Tab.Chew) 750 mg PO Q4H PRN PRN Reason: Heartburn Collagenase (Collagenase Clostridium Hist. 30 Gm Tube) 1 appl TOPICAL DAILY [facility]; Protocol Last Admin: 08/13/24 09:44 Dose: Not Given Documented By: GREGORY Non-Admin Reason: scheduled procedure Docusate Sodium (Docusate Sodium 100 Mg Capsule) 100 mg PO BID [facility] Last Admin: 08/13/24 19:45 Dose: 100 mg Documented By: BLANCHE Doxazosin Mesylate (Doxazosin Mesylate 2 Mg Tablet) 4 mg PO BEDTIME [facility]; Protocol Last Admin: 08/13/24 19:46 Dose: 4 mg Documented By: BLANCHE Famotidine (Famotidine 20 Mg Tablet) 20 mg PO BEDTIME [facility] Last Admin: 08/13/24 19:44 Dose: 20 mg Documented By: BLANCHE Ferrous Sulfate (Ferrous Sulfate 324 Mg Tablet.Dr) 324 mg PO BID [facility] Last Admin: 08/13/24 19:45 Dose: 324 mg Documented By: BLANCHE Finasteride (Finasteride 5 Mg Tablet) 5 mg PO DAILY [facility] Last Admin: 08/13/24 08:37 Dose: 5 mg Documented By: GREGORY Gabapentin (Gabapentin 100 Mg Capsule) 100 mg PO BID [facility] Last Admin: 08/13/24 19:46 Dose: 100 mg Documented By: BLANCHE Levothyroxine Sodium (Levothyroxine Sodium 100 Mcg Tablet) 100 mcg PO DAILY@0600 [facility] Last Admin: 08/14/24 04:02 Dose: 100 mcg Documented By: BLANCHE Magnesium Hydroxide (Milk Of Magnesia 30 Ml Oral.Susp) 30 ml PO DAILY PRN PRN Reason: Constipation Melatonin (Melatonin 3 Mg Tablet) 6 mg PO BEDTIME PRN PRN Reason: Insomnia Melatonin (Melatonin 3 Mg Tablet) 9 mg PO BEDTIME [facility] Last Admin: 08/13/24 19:43 Dose: 9 mg Documented By: BLANCHE Meropenem (Meropenem 1 Gm Vial) 1 gm IVPUSH Q12H [facility] Last Admin: 08/14/24 04:33 Dose: 1 gm Documented By: BLANCHE Multivitamins/Vitamin C (Multivitamin Tablet) 1 tab PO DAILY [facility] Last Admin: 08/13/24 08:36 Dose: 1 tab Documented By: GREGORY Nystatin (Nystatin Powder 15 Gm Bottle) 1 appl TOPICAL BID [facility]; Protocol Last Admin: 08/13/24 23:04 Dose: 1 appl Documented By: BLANCHE Omeprazole (Omeprazole 20 Mg Capsule.) 20 mg PO BID@0630,1630 [facility] Last Admin: 08/14/24 04:02 Dose: 20 mg Documented By: BLANCHE Ondansetron HCl (Ondansetron Hcl 4 Mg/2 Ml Vial) 4 mg IVPUSH Q8H PRN PRN Reason: Nausea and Vomiting Polyethylene Glycol (Polyethylene Glycol 3350 17 Gm Powd.Pack) 17 gm PO DAILY [facility] Last Admin: 08/13/24 08:48 Dose: Not Given Documented By: GREGORY Non-Admin Reason: Patient Refused Polyethylene Glycol (Polyethylene Glycol 3350 17 Gm Powd.Pack) 17 gm PO DAILY [facility] Last Admin: 08/13/24 23:00 Dose: 17 gm Documented By: BLANCHE Senna (Sennosides 8.6 Mg Tablet) 17.2 mg PO BEDTIME [facility] Last Admin: 08/13/24 19:45 Dose: 17.2 mg Documented By: BLANCHE Sodium Biphosphate/Sodium Phosphate (Sodium Phosphate,[place]-Dibasic 133 Ml Enema) 118 ml [place] DAILY PRN PRN Reason: Constipation Sodium Chloride (0.9 % Sodium Chloride Flush 3 Ml Syringe) 3 ml IVFLUSH QSHIFT [facility] Last Admin: 08/13/24 19:48 Dose: 3 ml Documented By: BLANCHE Thiamine HCl (Thiamine Hcl 100 Mg Tablet) 100 mg PO DAILY [facility] Last Admin: 08/13/24 08:36 Dose: 100 mg Documented By: GREGORY Tramadol HCl (Tramadol Hcl 50 Mg Tablet) 25 mg PO Q6H PRN PRN Reason: Pain, Severe (Pain Scale 7-10) Last Admin: 08/13/24 23:00 Dose: 25 mg Documented By: BLANCHE Zinc Sulfate (Zinc Sulfate 220 Mg Capsule) 220 mg PO DAILY [facility] Labs 08/13/24 05:43 08/13/24 05:43 Procedures Date of Service Date of Service: 08/14/24 Progress Note: A&P Assessment and plan (1) Decubitus ulcer of sacral region, stage 4: Status: Acute Plan POD #1 status post debridement of sacral decubitus ulcer. Ulcer involved skin, subcutaneous tissue muscle and tendon extends very close to sacrum and coccyx (stage IV). Patient tolerated the procedure well. Continue local wound care keep all pressure off sacral region. Time Spent With Patient Time: Total time managing care of this patient today ____ minutes. Quality Stroke Does the patient have a stroke diagnosis?: No VTE Prior VTE?: No VTE Risk Level:: Medical - moderate - high VTE Device Contraindication: Treatment Not Indicated VTE Drug Contraindication: N/A - Med Ordered
[2024-08-14] MEDS: polyethylene glycoL 3350 17 GM POWD.PACK PO (08:26)
[2024-08-14] MEDS: 0.9 % Sodium Chloride Flush 3 ML SYRINGE IVFLUSH ×3 (08:26→19:39)
[2024-08-14] MEDS: Thiamine HCL 100 MG TABLET PO (08:27)
[2024-08-14] MEDS: amLODIPine Besylate 10 MG TABLET PO (08:27)
--- NOTE | 2024-08-14 08:27 | PM.PNGS ---
Subjective Subjective Date of Service: 08/14/24 Interval history: Feels comfortable this morning. Denies significant pain at ulcer site. Dressing had to be changed once overnight due to saturation. Physical Exam Vital Signs: Vital Signs: Last Vital Signs Temp 96.9 F 08/14/24 07:46 Pulse 60 08/14/24 07:46 Resp 18 08/14/24 07:46 BP 100/60 08/14/24 07:46 Pulse Ox 92 08/14/24 07:46 O2 Del Method Room Air 08/14/24 07:46 O2 Flow Rate 1 08/12/24 07:35 BMI result Body Mass Index 28.5 Const: General: comfortable, no acute distress and alert Skin: Other: sacral ulcer without further necrotic tissue noted, some old clot at left lateral wound edge, surrounding skin with extensive nonblanching erythema Objective Data Active Medications Acetaminophen (Acetaminophen 325 Mg Tablet) 650 mg PO Q6H PRN PRN Reason: Pain, Mild 1-3,fever,headache Last Admin: 08/14/24 04:02 Dose: 650 mg Documented By: BLANCHE Albuterol Sulfate (Albuterol Sulfate (0.083%) 2.5 Mg/3 Ml Vial.Neb) 2.5 mg INHALE Q4H PRN PRN Reason: Shortness Of Breath Or Wheezing Amiodarone HCl (Amiodarone Hcl 200 Mg Tablet) 200 mg PO DAILY [facility] Last Admin: 08/13/24 08:37 Dose: 200 mg Documented By: GREGORY Amlodipine Besylate (Amlodipine Besylate 10 Mg Tablet) 10 mg PO DAILY [facility]; Protocol Last Admin: 08/13/24 08:36 Dose: 10 mg Documented By: GREGORY Apixaban (Apixaban 2.5 Mg Tablet) 2.5 mg PO BID [facility] Last Admin: 08/13/24 19:47 Dose: 2.5 mg Documented By: BLANCHE Artificial Tears (Artificial Tears 15 Ml Drops) 1 drop EYE-BOTH Q6H PRN PRN Reason: Dry Eyes Ascorbic Acid (Ascorbic Acid 500 Mg Tablet) 500 mg PO BID [facility] Last Admin: 08/13/24 19:43 Dose: 500 mg Documented By: BLANCHE Bisacodyl (Bisacodyl 10 Mg Supp.Rect) 10 mg [place] DAILY PRN PRN Reason: Constipation Calcium Carbonate (Calcium Carbonate 750 Mg Tab.Chew) 750 mg PO Q4H PRN PRN Reason: Heartburn Collagenase (Collagenase Clostridium Hist. 30 Gm Tube) 1 appl TOPICAL DAILY [facility]; Protocol Last Admin: 08/13/24 09:44 Dose: Not Given Documented By: GREGORY Non-Admin Reason: scheduled procedure Docusate Sodium (Docusate Sodium 100 Mg Capsule) 100 mg PO BID [facility] Last Admin: 08/13/24 19:45 Dose: 100 mg Documented By: BLANCHE Doxazosin Mesylate (Doxazosin Mesylate 2 Mg Tablet) 4 mg PO BEDTIME [facility]; Protocol Last Admin: 08/13/24 19:46 Dose: 4 mg Documented By: BLANCHE Famotidine (Famotidine 20 Mg Tablet) 20 mg PO BEDTIME [facility] Last Admin: 08/13/24 19:44 Dose: 20 mg Documented By: BLANCHE Ferrous Sulfate (Ferrous Sulfate 324 Mg Tablet.) 324 mg PO BID [facility] Last Admin: 08/13/24 19:45 Dose: 324 mg Documented By: BLANCHE Finasteride (Finasteride 5 Mg Tablet) 5 mg PO DAILY [facility] Last Admin: 08/13/24 08:37 Dose: 5 mg Documented By: GREGORY Gabapentin (Gabapentin 100 Mg Capsule) 100 mg PO BID [facility] Last Admin: 08/13/24 19:46 Dose: 100 mg Documented By: BLANCHE Levothyroxine Sodium (Levothyroxine Sodium 100 Mcg Tablet) 100 mcg PO DAILY@0600 [facility] Last Admin: 08/14/24 04:02 Dose: 100 mcg Documented By: BLANCHE Magnesium Hydroxide (Milk Of Magnesia 30 Ml Oral.Susp) 30 ml PO DAILY PRN PRN Reason: Constipation Melatonin (Melatonin 3 Mg Tablet) 6 mg PO BEDTIME PRN PRN Reason: Insomnia Melatonin (Melatonin 3 Mg Tablet) 9 mg PO BEDTIME [facility] Last Admin: 08/13/24 19:43 Dose: 9 mg Documented By: BLANCHE Meropenem (Meropenem 1 Gm Vial) 1 gm IVPUSH Q12H [facility] Last Admin: 08/14/24 04:33 Dose: 1 gm Documented By: BLANCHE Multivitamins/Vitamin C (Multivitamin Tablet) 1 tab PO DAILY [facility] Last Admin: 08/13/24 08:36 Dose: 1 tab Documented By: GREGORY Nystatin (Nystatin Powder 15 Gm Bottle) 1 appl TOPICAL BID [facility]; Protocol Last Admin: 08/13/24 23:04 Dose: 1 appl Documented By: BLANCHE Omeprazole (Omeprazole 20 Mg Capsule.) 20 mg PO BID@0630,1630 [facility] Last Admin: 08/14/24 04:02 Dose: 20 mg Documented By: BLANCHE Ondansetron HCl (Ondansetron Hcl 4 Mg/2 Ml Vial) 4 mg IVPUSH Q8H PRN PRN Reason: Nausea and Vomiting Polyethylene Glycol (Polyethylene Glycol 3350 17 Gm Powd.Pack) 17 gm PO DAILY [facility] Last Admin: 08/13/24 08:48 Dose: Not Given Documented By: GREGORY Non-Admin Reason: Patient Refused Polyethylene Glycol (Polyethylene Glycol 3350 17 Gm Powd.Pack) 17 gm PO DAILY [facility] Last Admin: 08/13/24 23:00 Dose: 17 gm Documented By: BLANCHE Senna (Sennosides 8.6 Mg Tablet) 17.2 mg PO BEDTIME [facility] Last Admin: 08/13/24 19:45 Dose: 17.2 mg Documented By: BLANCHE Sodium Biphosphate/Sodium Phosphate (Sodium Phosphate,[place]-Dibasic 133 Ml Enema) 118 ml [place] DAILY PRN PRN Reason: Constipation Sodium Chloride (0.9 % Sodium Chloride Flush 3 Ml Syringe) 3 ml IVFLUSH QSHIFT [facility] Last Admin: 08/13/24 19:48 Dose: 3 ml Documented By: BLANCHE Thiamine HCl (Thiamine Hcl 100 Mg Tablet) 100 mg PO DAILY [facility] Last Admin: 08/13/24 08:36 Dose: 100 mg Documented By: GREGORY Tramadol HCl (Tramadol Hcl 50 Mg Tablet) 25 mg PO Q6H PRN PRN Reason: Pain, Severe (Pain Scale 7-10) Last Admin: 08/13/24 23:00 Dose: 25 mg Documented By: BLANCHE Zinc Sulfate (Zinc Sulfate 220 Mg Capsule) 220 mg PO DAILY [facility] Labs 08/13/24 05:43 08/13/24 05:43 Procedures Date of Service Date of Service: 08/14/24 Progress Note: A&P Assessment and plan (1) Decubitus ulcer of sacral region, stage 4: Status: Acute Plan Wound bed improved from preop without further necrotic tissue. Continue daily local wound care with wet to dry saline soaked fluffs, followed by dry fluffs, abd dressing and tape. Continue frequent repositioning, off loading mattress, nutritional support. Time Spent With Patient Time: Total time managing care of this patient today ____ minutes. Quality Stroke Does the patient have a stroke diagnosis?: No VTE Prior VTE?: No VTE Risk Level:: Medical - moderate - high VTE Device Contraindication: Treatment Not Indicated VTE Drug Contraindication: N/A - Med Ordered
--- NOTE | 2024-08-14 10:21 | HO.PM.IMPN ---
Subjective Subjective Date of Service: 08/14/24 Interval History: Being followed for stage IV sacral decubitus ulcers status post debridement by General surgery on 08/13/24 Feeling better this morning denies lower back pain, confusion resolved, no acute events overnight, tolerating current diet no nausea, no vomiting, no diarrhea. Review of Systems All other system reviewed and are negative Physical Exam Vital Signs: Vital Signs: Last Vital Signs Temp 96.9 F 08/14/24 07:46 Pulse 60 08/14/24 07:46 Resp 18 08/14/24 07:46 BP 100/60 08/14/24 07:46 Pulse Ox 92 08/14/24 07:46 O2 Del Method Room Air 08/14/24 07:46 O2 Flow Rate 1 08/12/24 07:35 BMI result Body Mass Index 28.5 Const: Other: Constitutional : Awake alert in no acute distress Anicteric sclera Neck no JVD Cardiovascular : Respiratory : No respiratory distress Gastrointestinal: G tube in place not in use, soft, non tender Skin : Warm, Dry Neurological : No focal deficit Sacral decubitus ulcers see pictures in surgical note. Objective Data Active Medications Acetaminophen (Acetaminophen 325 Mg Tablet) 650 mg PO Q6H PRN PRN Reason: Pain, Mild 1-3,fever,headache Last Admin: 08/14/24 04:02 Dose: 650 mg Documented By: BLANCHE Albuterol Sulfate (Albuterol Sulfate (0.083%) 2.5 Mg/3 Ml Vial.Neb) 2.5 mg INHALE Q4H PRN PRN Reason: Shortness Of Breath Or Wheezing Amiodarone HCl (Amiodarone Hcl 200 Mg Tablet) 200 mg PO DAILY COUNT INCLUDES THE [facility] Last Admin: 08/14/24 08:15 Dose: 200 mg Documented By: ANDREIA Amlodipine Besylate (Amlodipine Besylate 10 Mg Tablet) 10 mg PO DAILY COUNT INCLUDES THE [facility]; Protocol Last Admin: 08/14/24 08:27 Dose: 10 mg Documented By: ANDREIA Apixaban (Apixaban 2.5 Mg Tablet) 2.5 mg PO BID COUNT INCLUDES THE [facility] Last Admin: 08/14/24 08:15 Dose: 2.5 mg Documented By: ANDREIA Artificial Tears (Artificial Tears 15 Ml Drops) 1 drop EYE-BOTH Q6H PRN PRN Reason: Dry Eyes Ascorbic Acid (Ascorbic Acid 500 Mg Tablet) 500 mg PO BID COUNT INCLUDES THE [facility] Last Admin: 08/14/24 08:15 Dose: 500 mg Documented By: ANDREIA Bisacodyl (Bisacodyl 10 Mg Supp.Rect) 10 mg [place] DAILY PRN PRN Reason: Constipation Calcium Carbonate (Calcium Carbonate 750 Mg Tab.Chew) 750 mg PO Q4H PRN PRN Reason: Heartburn Collagenase (Collagenase Clostridium Hist. 30 Gm Tube) 1 appl TOPICAL DAILY COUNT INCLUDES THE [facility]; Protocol Last Admin: 08/13/24 09:44 Dose: Not Given Documented By: GREGORY Non-Admin Reason: scheduled procedure Docusate Sodium (Docusate Sodium 100 Mg Capsule) 100 mg PO BID COUNT INCLUDES THE [facility] Last Admin: 08/14/24 08:16 Dose: 100 mg Documented By: ANDREIA Doxazosin Mesylate (Doxazosin Mesylate 2 Mg Tablet) 4 mg PO BEDTIME COUNT INCLUDES THE [facility]; Protocol Last Admin: 08/13/24 19:46 Dose: 4 mg Documented By: BLANCHE Famotidine (Famotidine 20 Mg Tablet) 20 mg PO BEDTIME COUNT INCLUDES THE [facility] Last Admin: 08/13/24 19:44 Dose: 20 mg Documented By: BLANCHE Ferrous Sulfate (Ferrous Sulfate 324 Mg Tablet.) 324 mg PO BID COUNT INCLUDES THE [facility] Last Admin: 08/14/24 08:16 Dose: 324 mg Documented By: ANDREIA Finasteride (Finasteride 5 Mg Tablet) 5 mg PO DAILY COUNT INCLUDES THE [facility] Last Admin: 08/14/24 08:15 Dose: 5 mg Documented By: ANDREIA Gabapentin (Gabapentin 100 Mg Capsule) 100 mg PO BID COUNT INCLUDES THE [facility] Last Admin: 08/14/24 08:16 Dose: 100 mg Documented By: ANDREIA Levothyroxine Sodium (Levothyroxine Sodium 100 Mcg Tablet) 100 mcg PO DAILY@0600 COUNT INCLUDES THE [facility] Last Admin: 08/14/24 04:02 Dose: 100 mcg Documented By: BLANCHE Magnesium Hydroxide (Milk Of Magnesia 30 Ml Oral.Susp) 30 ml PO DAILY PRN PRN Reason: Constipation Melatonin (Melatonin 3 Mg Tablet) 6 mg PO BEDTIME PRN PRN Reason: Insomnia Melatonin (Melatonin 3 Mg Tablet) 9 mg PO BEDTIME COUNT INCLUDES THE [facility] Last Admin: 08/13/24 19:43 Dose: 9 mg Documented By: BLANCHE Meropenem (Meropenem 1 Gm Vial) 1 gm IVPUSH Q12H COUNT INCLUDES THE [facility] Last Admin: 08/14/24 04:33 Dose: 1 gm Documented By: BLANCHE Multivitamins/Vitamin C (Multivitamin Tablet) 1 tab PO DAILY COUNT INCLUDES THE [facility] Last Admin: 08/14/24 08:16 Dose: 1 tab Documented By: ANDREIA Nystatin (Nystatin Powder 15 Gm Bottle) 1 appl TOPICAL BID COUNT INCLUDES THE [facility]; Protocol Last Admin: 08/13/24 23:04 Dose: 1 appl Documented By: BLANCHE Omeprazole (Omeprazole 20 Mg Capsule.) 20 mg PO BID@0630,1630 COUNT INCLUDES THE [facility] Last Admin: 08/14/24 04:02 Dose: 20 mg Documented By: BLANCHE Ondansetron HCl (Ondansetron Hcl 4 Mg/2 Ml Vial) 4 mg IVPUSH Q8H PRN PRN Reason: Nausea and Vomiting Polyethylene Glycol (Polyethylene Glycol 3350 17 Gm Powd.Pack) 17 gm PO DAILY COUNT INCLUDES THE [facility] Last Admin: 08/14/24 08:26 Dose: 17 gm Documented By: ANDREIA Polyethylene Glycol (Polyethylene Glycol 3350 17 Gm Powd.Pack) 17 gm PO DAILY COUNT INCLUDES THE [facility] Last Admin: 08/13/24 23:00 Dose: 17 gm Documented By: BLANCHE Senna (Sennosides 8.6 Mg Tablet) 17.2 mg PO BEDTIME COUNT INCLUDES THE [facility] Last Admin: 08/13/24 19:45 Dose: 17.2 mg Documented By: BLANCHE Sodium Biphosphate/Sodium Phosphate (Sodium Phosphate,Lamoure-Dibasic 133 Ml Enema) 118 ml [place] DAILY PRN PRN Reason: Constipation Sodium Chloride (0.9 % Sodium Chloride Flush 3 Ml Syringe) 3 ml IVFLUSH QSHIFT COUNT INCLUDES THE [facility] Last Admin: 08/14/24 08:26 Dose: 3 ml Documented By: ANDREIA Thiamine HCl (Thiamine Hcl 100 Mg Tablet) 100 mg PO DAILY COUNT INCLUDES THE [facility] Last Admin: 08/14/24 08:27 Dose: 100 mg Documented By: ANDREIA Tramadol HCl (Tramadol Hcl 50 Mg Tablet) 25 mg PO Q6H PRN PRN Reason: Pain, Severe (Pain Scale 7-10) Last Admin: 08/13/24 23:00 Dose: 25 mg Documented By: BLANCHE Zinc Sulfate (Zinc Sulfate 220 Mg Capsule) 220 mg PO DAILY AIDAN Last Admin: 08/14/24 08:16 Dose: 220 mg Documented By: ANDREIA Labs 08/13/24 05:43 08/13/24 05:43 Assessment and Plan (1) Decubitus ulcer of sacral region, stage 4: Status: Acute (2) Unstageable decubitus ulcer: Status: Acute (3) Acute lactic acidosis: Status: Acute (4) Urinary tract infection: Status: Acute (5) Encephalopathy due to infection: Status: Acute Plan 84M PMH PAF, HFrEF, HTN, CKD III, GALLITO, GERD, [place] [facility] [place] UTI discharged on Meropenem, sent by SNF for alterd mentation and low BP readings. Acute urinary tract infection complicated with acute metabolic encephalopathy and sepsis recent MDR UTI w ESBL Klebsiella complicated with bacteremia. this admission Blood culture showed no growth, urine culture grew mixed bacterial nohemi on IV meropenem started on 08/11, will continue current antibiotic for total 5 days ending on 08/15 Acute encephalopathy resolved Chronic PEG not in use Tolerating regular diet without signs symptoms of aspiration. Acute lactic acidosis Likely secondary to sepsis, resolved with IV fluids. CKD 3 Stable Cr, monitor BMP Acute on chronic anemia multifactorial, chronic blood loss, inflammatory,and dilutional H/H dropped signficantly , status post 2 units of packed RBC hematocrit improved to 26.8. Stool guaiac negative. monitor H&H Paroxysmal atrial fibrillation Continue Eliquis restarted on 08/13 and Amiodarone, if H&H drops again will discuss with patient and family regarding discontinuation of anticoagulation. hypothyroid synthroid Sacral Pressure Ulcers-s/p extensive debridement by General surgery/frequent position change/protein supplements, offloading mattress, being followed by General surgery they recommend to Continue daily local wound care with wet to dry saline soaked fluffs, followed by dry fluffs, abd dressing and tape. DVT prophylaxis - resume Eliquis need for inpt: Close follow-up of sacral pressure ulcer status post debridement and to finish IV antibiotic Full code: Family request 1 attempt at CPR Disposition returned back to snf Quality Stroke Does the patient have a stroke diagnosis?: No VTE Prior VTE?: No VTE Risk Level:: Medical - moderate - high VTE Device Contraindication: Treatment Not Indicated VTE Drug Contraindication: N/A - Med Ordered
--- NOTE | 2024-08-14 10:28 | P.DS_ITS ---
DS: Providers Provider Date of Service: 08/15/24 Date of admission: 08/11/24 04:15 Date of discharge: 08/15/24 Primary care physician: Zak Zuluaga MD Consults: 08/11/24 09:38 Consult to Wound Care Routine Reason for consultation: Coccyx, Bilateral Heels, Right Ankle Has provider been notified: Yes 08/11/24 09:39 Consult to General Surgery Routine [place] [facility] [place] Reason for consultation: Coccyx, Bilateral Heels, Right Ankle Wounds. DS: Diagnosis Discharge Diagnosis (1) Decubitus ulcer of sacral region, stage 4: Status: Acute (2) Unstageable decubitus ulcer: Status: Acute (3) Acute lactic acidosis: Status: Acute (4) Urinary tract infection: Status: Acute (5) Encephalopathy due to infection: Status: Acute DS: Summary Hospital Course Hospital Course: History of presenting illness: Date of Service: 08/11/24 Chief Complaint: UTI, AMS 84M PMH PAF, HFrEF, HTN, CKD III, GALLITO, GERD, [place] [facility] [place] discharged on Meropenem, sent by SNF for alterd mentation and low BP readings. Last admission he had ESBL klebsiella in urine culture, sensitive to IV meds only. patient confused about the reason he is in the hospital but denies dysuria, fever, urinary frequency. He is confused about time and place. has delusional ideas that his name is Barron and he is powerful being that is so old. can be redirected and not aggressive or agitated. Urine analysis positive for UTI. Noted to have elevated Lactic acid as well but BP was within normal in ED. admitted for IV antibiotics pending final cultures. Hospital course: 84M PMH PAF, HFrEF, HTN, CKD III, GALLITO, GERD, [place] [facility] [place] U[place] discharged on Meropenem, sent by [facility] for altered mentation and hypotension patient admitted to medical floor with following medical issues. Acute urinary tract infection complicated with acute metabolic encephalopathy and sepsis due to recent MDR UTI w ESBL Klebsiella complicated with bacteremia patient was placed on IV meropenem,this admission Blood culture showed no growth, urine culture grew mixed bacterial nohemi, patient finish 5 day course of antibiotic, low further antibiotic needed upon discharge, acute encephalopathy resolved patient is tolerating regular diet without signs symptoms of aspiration. Patient has chronic PEG tube currently not in use. Acute lactic acidosis likely secondary to sepsis, resolved with IV fluids. CKD 3 Stable Cr, monitor BMP Acute on chronic anemia, multifactorial, chronic blood loss, inflammatory,and dilutional,H/H dropped signficantly , status post 2 units of packed RBC hematocrit improved and remained stable, Stool guaiac negative. Paroxysmal atrial fibrillation Continue Eliquis restarted on 08/13 and Amiodarone, if H&H drops again will discuss with patient and family regarding discontinuation of anticoagulation. Hypothyroidism continue synthroid Sacral Pressure Ulcer STAGE IV-s/p extensive debridement by General surgery recommended frequent position change/protein supplements, offloading mattress, being followed by General surgery they recommend to Continue daily local wound care with wet to dry saline soaked fluffs, followed by dry fluffs, abd dressing and tape. Physical Exam Vital Signs: Vital Signs: Last Vital Signs Temp 96.9 F 08/14/24 07:46 Pulse 60 08/14/24 07:46 Resp 18 08/14/24 07:46 BP 100/60 08/14/24 07:46 Pulse Ox 92 08/14/24 07:46 O2 Del Method Room Air 08/14/24 07:46 O2 Flow Rate 1 08/12/24 07:35 BMI result Body Mass Index 28.5 Const: Other: Constitutional : Awake alert in no acute distress Anicteric sclera Neck no JVD Cardiovascular : Respiratory : No respiratory distress Gastrointestinal: G tube in place not in use, soft, non tender Skin : Warm, Dry Neurological : No focal deficit Sacral decubitus ulcers dressing in place DS: Data Data Completed and Pending Completed studies during hospitalization [Text1]: Procedures Assistance with Respiratory Ventilation, Less than 24 Consecutive Hours, Continuous Positive Airway Pressure (07/07/22) Bypass Trachea to Cutaneous with Tracheostomy Device, Open Approach (02/09/24) Dilation of Left Ureter with Intraluminal Device, Via Natural or Artificial Opening Endoscopic (07/07/22) Drainage of Left Main Bronchus, Via Natural or Artificial Opening Endoscopic (02/09/24) Drainage of Right Main Bronchus, Via Natural or Artificial Opening Endoscopic (02/09/24) Fluoroscopy of Left Kidney, Ureter and Bladder using Low Osmolar Contrast (07/07/22) Insertion of Endotracheal Airway into Trachea, Via Natural or Artificial Opening (02/09/24) Insertion of Feeding Device into Stomach, Percutaneous Approach (02/09/24) Insertion of Infusion Device into Right Atrium, Percutaneous Approach (02/09/24) Insertion of Infusion Device into Right Cephalic Vein, Percutaneous Approach (06/26/24) Insertion of Infusion Device into Upper Vein, Percutaneous Approach (02/09/24) Removal of Infusion Device from Upper Vein, External Approach (02/09/24) Repair Neck, Stoma, External Approach (02/09/24) Respiratory Ventilation, 24-96 Consecutive Hours (02/09/24) Respiratory Ventilation, Greater than 96 Consecutive Hours (02/09/24) Advent of Cardiac Rhythm, Single (07/07/22) Transfusion of Nonautologous Red Blood Cells into Peripheral Vein, Percutaneous Approach (06/26/24) Ultrasonography of Superior Vena Cava, Guidance (02/09/24) Pending studies at discharge: Pending at discharge 08/13/24 13:40 Surgical [PTH] Routine Labs on day of discharge: Preliminary micro results at discharge 08/10/24 23:57 Blood Culture - Preliminary Blood - Venous No growth after 48 hours. 08/10/24 23:39 Blood Culture - Preliminary Blood - Venous No growth after 48 hours. Discharge Plan Discharge Referrals: Zak Zuluaga MD [Primary Care Provider] - 1 Week Discharge Medications: No Action polyethylene glycol 3350 17 gram Powder In Packet 17 g PO DAILY Qty: 30 0RF Rx Instructions: Hold for loose stool. sennosides [senna] 8.6 mg Tablet 17.2 mg PO BEDTIME albuterol sulfate 2.5 mg /3 mL (0.083 %) Solution For Nebulization 2.5 mg INHALATION Q4H PRN (Reason: Shortness Of Breath Or Wheezing) polyvinyl alcohol 1.4 % Drops 1 drp OPHTHALMIC (EYE) Q6H PRN (Reason: Dry Eyes) thiamine HCl (vitamin B1) [Vitamin B-1] 100 mg Tablet 100 mg PO DAILY levothyroxine 100 mcg Tablet 100 mcg PO DAILY@0600 famotidine 20 mg Tablet 20 mg PO BEDTIME magnesium hydroxide [Milk of Magnesia] 400 mg/5 mL Suspension 30 ml PO Q72H PRN (Reason: Constipation) Rx Instructions: If no BM in 3 days. ascorbic acid (vitamin C) 500 mg Tablet 500 mg PO BID amlodipine 10 mg Tablet 10 mg PO DAILY bisacodyl 10 mg Suppository 10 mg [place] DAILY PRN (Reason: Constipation) Rx Instructions: If MoM not effective. ferrous sulfate 325 mg (65 mg iron) Tablet 325 mg PO BID gabapentin 100 mg Capsule 100 mg PO BID docusate sodium 100 mg Tablet 100 mg PO BID melatonin 5 mg Tablet 10 mg PO BEDTIME acetaminophen 325 mg tablet 975 mg PO Q6H PRN (Reason: Pain/Fever) amiodarone 200 mg tablet 200 mg PO DAILY nystatin 100,000 unit/gram Powder 1 appl TOPICAL BID Rx Instructions: Apply to Groin. omeprazole 20 mg Capsule,Delayed Release(Dr/Ec) 20 mg PO BID@0630,1630 Qty: 0 0RF finasteride 5 mg Tablet 5 mg PO DAILY Qty: 0 0RF doxazosin 2 mg Tablet 4 mg PO BEDTIME Qty: 0 0RF Protocol: Hold for SBP< HOLD for SBP < : 90 cefuroxime axetil 250 mg Tablet 250 mg PO BID Rx Instructions: x 7 days ( 08/07/24 - 08/14/24) zinc acetate 50 mg (zinc) Capsule 50 mg PO DAILY Rx Instructions: 08/10/24 - 08/24/24 ondansetron HCl 4 mg Tablet 4 mg PO Q8H PRN (Reason: Nausea And Vomiting) Fleet Enema 19-7 gram/118 mL Enema 118 ml [place] DAILY PRN (Reason: Constipation) Santyl 250 unit/gram Ointment 1 appl TOPICAL DAILY Rx Instructions: apply to sacrum multivitamin with minerals Tablet 1 tab PO DAILY Acidophilus Capsule 2,000 mmu cells PO BID Rx Instructions: for UTI until 08/14/24 Cold and Hot (menthol) 5 % Adhesive Patch,Medicated 1 patch TOPICAL DAILY Rx Instructions: apply to left knee Lactobacillus acidoph-L.bulgar 1 million cell Tablet 1 tab PO BID Eliquis 2.5 mg Tablet 2.5 mg PO BID Print Language: Bulgarian
--- NOTE | 2024-08-14 11:01 | MHC.CM.PN ---
Per MD rounds patient not medically cleared for dc. Likely dc tomorrow back to [facility] to complete STR. [facility] updated. CM will continue to follow.
[2024-08-14] MEDS: Nystatin Powder 15 GM BOTTLE 1 APPL TOPICAL (11:09)
--- NOTE | 2024-08-14 11:19 | MHC.CLN ---
F/U DIET=REGULAR. RECEIVING ENSURE MAX BID TO PROVIDE 300 KCALS, 60 G PROTEIN. INCREASED NUTRITION NEEDS DUE TO PRESSURE INJURIES. STAGE IV PRESSURE INJURY TO SACRUM AND UNSTAGEABLE AREAS TO RIGHT HEEL AND RIGHT ANKLE. COMPLICATED MEDICAL HX INCLUDING PRIOR TRACH PLACEMENT AND HAS PEG NOT IN USE. PO INTAKE VARIABLE. FOLLOW FOR PO INTAKE AND SKIN INTEGRITY.
--- NOTE | 2024-08-14 11:28 | HO.WOUND ---
Wound Consult: Follow up 84yr old? male admitted to [facility] [place] on 08/11/24 - See progress notes and H&P for detailed history.? Wound consult follow up for coccyx wound, bilateral heels and right ankle wound POA.? Patient agreeable to assessment and photo documentation.? Sacrum Etiology: Stage 4 Pressure injury??Present on Admission Wound Bed: 7.5cm x 9cm x 4cm with undermining noted from 6-12 o'clock max depth of 4cm at 7 o'clock - marbled wound bed with mejia and yellow slough with thin slough tissue noted over bone - no bone frankly exposed at this time Drainage / Odor: mejia sero sang - no odor noted Edges: ? indurated with mild erythema Shirley wound: ?MASD with Induration noted to wound edges No Fluctuance or Warmth noted Pain: pain reported Goals of Treatment: Will defer topical recommendations at this time to General surgery team will follow along. They have order inplace for wet to moist dressing Daily. Right Heel Etiology: Unstageable Pressure injury??Present on Admission Wound Bed: black dry intact wound bed Drainage / Odor: none Edges: ? well defined Shirley wound: ?red pink dry tissue - No Induration, Fluctuance or Warmth noted Pain: pain reported Goals of Treatment: ?Durafiber AG and dry gauze dressing to keep dry - heels off loaded with heel boot protectors already in place Right Ankle - Malleolus Etiology: Unstageable Pressure injury??Present on Admission Wound Bed: black dry intact wound bed Drainage / Odor: none Edges: ? well defined Shirley wound: ? dry intact tissue - No Induration, Fluctuance or Warmth noted Pain: pain reported Goals of Treatment: ? off loaded with heel boot protectors already in place Left heel - pink intact tissue noted hyperpigmentaiton noted unclear etiology at this time Left Ankle Etiology: resolved Stage 1 Pressure injury??Present on Admission Wound Bed: red intact blanchable tissue Drainage / Odor: none Edges: ? attached Shirley wound: ? dry intact pink - No Induration, Fluctuance or Warmth noted Pain: denies Goals of Treatment: ? off loaded with heel boot protectors already in place No new topical recommendations needed at this time. Recommendations: 1. Turn and Reposition every 2 hours and as needed for patient comfort.? Use pillows or wedges to support off loading positions. 2. Off Load all bony prominences with use of pillows and heel boots if needed.? Apply Preventative foams where needed. ? 3. Monitor for incontinence and moisture control, use barrier creams when needed for prevention and treatment. 4. Provide adequate and supplemental nutrition.? 5. Continue low air loss mattress. 6. When applicable maintain blood glucose levels per Providers order. 7. Sacrum - Off Load Pressure with Q2hr turns - Defer to General Surgery team topical orders. 8. Bilateral Heels and ankles - Elevate heels off of bed surface with heel protector boots alreayd in use. Apply skin prep to heels, Cover right heel with Durafiber AG, Dry gauze, Dry ABd pad and gauze wrap. Change every other day. Re-consult wound care Nurse for wound deterioration or wound changes.
[2024-08-14 13:49] LABS: Anion Gap 10 (12-20); Blood Urea Nitrogen 21 mg/dL (9-16); Calcium 8.4 mg/dL (8.4-10.2); Carbon Dioxide 24 mmol/L (22-29); Chloride 114 mmol/L (96-108); Creatinine Clr Calc Pharmacy 49.4; Estimated Glomerular Filt Rate 50; Glucose Random 102 mg/dL (60-115); Potassium 4.2 mmol/L (3.3-5.1); Sodium 144 mmol/L (135-145)
[2024-08-14] MEDS: traMADoL HCL 50 MG TABLET 25 MG PO ×2 (14:00→19:26)
[2024-08-14 15:20] VITALS: BP 105/54; PULSE 78; RESP 16; TEMP 37.4; O2SAT 95
[2024-08-14] MEDS: Melatonin 3 MG TABLET 9 MG PO (19:25)
[2024-08-14] MEDS: Doxazosin Mesylate 2 MG TABLET 4 MG PO (19:25)
[2024-08-14] MEDS: Famotidine 20 MG TABLET PO (19:25)
[2024-08-14 19:44] VITALS: BP 108/55; PULSE 81; RESP 15; TEMP 36.2; O2SAT 95
[2024-08-15] VITALS (7 sets, daily range): BP systolic 99–110; BP diastolic 50–64; PULSE 65–82; RESP 16–19; TEMP 36.1–37.2; O2SAT 96–97
[2024-08-15] MEDS: Nystatin Powder 15 GM BOTTLE 1 APPL TOPICAL ×2 (01:00→08:47)
[2024-08-15] MEDS: Meropenem 1 GM VIAL IVPUSH ×2 (04:00→16:14)
[2024-08-15] MEDS: Omeprazole 20 MG CAPSULE.DR PO ×2 (05:43→16:13)
[2024-08-15] MEDS: Levothyroxine Sodium 100 MCG TABLET PO (05:43)
[2024-08-15 06:44] LABS: Hematocrit 24.8 % (42.0-52.0); Hemoglobin 7.6 g/dl (14.0-18.0); Mean Corpuscular HGB Conc 30.6 g/dl (31.0-36.0); Mean Corpuscular Hemoglobin 27.6 pg (27.0-33.0); Mean Corpuscular Volume 90.2 fL (80.0-98.0); Mean Platelet Volume 8.9 fL (9.4-12.4); Platelet Count 295 X10*3/uL (160-400); Red Blood Count 2.75 X10*6/uL (4.60-5.80); Red Cell Distribution Width 19.3 % (11.0-16.0); White Blood Count 7.8 X10*3/uL (4.8-10.8)
[2024-08-15 06:55] LABS: Anion Gap 10 (12-20); Blood Urea Nitrogen 20 mg/dL (9-16); Calcium 8.2 mg/dL (8.4-10.2); Carbon Dioxide 24 mmol/L (22-29); Chloride 113 mmol/L (96-108); Creatinine Clr Calc Pharmacy 56.5; Estimated Glomerular Filt Rate 58; Glucose Random 83 mg/dL (60-115); Potassium 4.3 mmol/L (3.3-5.1); Sodium 143 mmol/L (135-145)
[2024-08-15] MEDS: Thiamine HCL 100 MG TABLET PO (08:42)
[2024-08-15] MEDS: Multivitamin TABLET 1 TAB PO (08:42)
[2024-08-15] MEDS: Zinc Sulfate 220 MG CAPSULE PO (08:42)
[2024-08-15] MEDS: Ferrous Sulfate 324 MG TABLET.DR PO ×2 (08:42→20:36)
[2024-08-15] MEDS: Gabapentin 100 MG CAPSULE PO ×2 (08:42→20:36)
[2024-08-15] MEDS: Apixaban 2.5 MG TABLET PO ×2 (08:42→20:36)
[2024-08-15] MEDS: Ascorbic Acid 500 MG TABLET PO ×2 (08:42→20:36)
[2024-08-15] MEDS: Finasteride 5 MG TABLET PO (08:43)
[2024-08-15] MEDS: 0.9 % Sodium Chloride Flush 3 ML SYRINGE IVFLUSH ×3 (08:43→20:37)
[2024-08-15] MEDS: Amiodarone HCL 200 MG TABLET PO (08:43)
[2024-08-15] MEDS: amLODIPine Besylate 10 MG TABLET PO (08:43)
[2024-08-15] MEDS: traMADoL HCL 50 MG TABLET 25 MG PO ×2 (09:58→16:13)
--- NOTE | 2024-08-15 10:38 | MHC.CM.PN ---
Addendum entered by Brook Sylvester RN 08/15/24 14:42: [facility] unable to take admissions tonight d/t issues w/ heat. They anticipate this will be resolved by tomorrow. DC cancelled. LM for daughter to inform of plan. Original Note: Per MD rounds patient medically cleared for dc back to STR @ [facility]. BLS transport scheduled for 4:30pm. LIU ZHU, patient and daughter aware.
--- NOTE | 2024-08-15 12:36 | P.DS_ITS ---
DS: Providers Provider Date of Service: 08/15/24 Date of admission: 08/11/24 04:15 Date of discharge: 08/15/24 Primary care physician: Zak Zuluaga MD Consults: 08/11/24 09:38 Consult to Wound Care Routine Reason for consultation: Coccyx, Bilateral Heels, Right Ankle Has provider been notified: Yes 08/11/24 09:39 Consult to General Surgery Routine Consulting Provider: [facility] Reason for consultation: Coccyx, Bilateral Heels, Right Ankle Wounds. Attending physician on discharge: Andre Grewal Discharging clinician: Reema Herrera DS: Diagnosis Discharge Diagnosis (1) Decubitus ulcer of sacral region, stage 4: Status: Acute (2) Unstageable decubitus ulcer: Status: Acute (3) Acute lactic acidosis: Status: Acute (4) Urinary tract infection: Status: Acute (5) Encephalopathy due to infection: Status: Acute DS: Summary Hospital Course Hospital Course: From H&P on the day of admission 84M PMH PAF, HFrEF, HTN, CKD III, GALLITO, GERD, prolonged hospitalizations at [facility] [place]24 for MDR UTI discharged on Meropenem, sent by SNF for alterd mentation and low BP readings. Last admission he had ESBL klebsiella in urine culture, sensitive to IV meds only. patient confused about the reason he is in the hospital but denies dysuria, fever, urinary frequency. He is confused about time and place. has delusional ideas that his name is Barron and he is powerful being that is so old. can be redirected and not aggressive or agitated. Urine analysis positive for UTI. Noted to have elevated Lactic acid as well but BP was within normal in ED. admitted for IV antibiotics pending final cultures. Hospital course: 84M PMH PAF, HFrEF, HTN, CKD III, GALLITO, GERD, prolonged hospitalizations at [facility] 06/[place]24 for MDR UTI discharged on Meropenem, sent by correction for altered mentation and hypotension patient admitted to medical floor with following medical issues. Acute urinary tract infection complicated with acute metabolic encephalopathy and sepsis due to recent MDR UTI w ESBL Klebsiella complicated with bacteremia patient was placed on IV meropenem,this admission Blood culture showed no growth, urine culture grew mixed bacterial nohemi, patient finish 5 day course of antibiotic, no further antibiotic needed upon discharge, acute encephalopathy resolved patient is tolerating regular diet without signs symptoms of aspiration. Patient has chronic PEG tube currently not in use. Acute lactic acidosis likely secondary to sepsis, resolved with IV fluids. CKD 3 Stable Cr, monitor BMP Acute on chronic anemia multifactorial, chronic blood loss, inflammatory,and dilutional, H/H dropped , status post 2 units of packed RBC hematocrit improved and remained stable. has remained within patient baseline. can monitor cbc as outpatient, if continues to drop, can discuss with PCP possibility of discontinuing eliquis. no active bleeding noted. Paroxysmal atrial fibrillation Continue Eliquis restarted on 08/13 and Amiodarone, if H&H drops again will discuss with patient and family regarding discontinuation of anticoagulation as above Hypothyroidism continue synthroid Sacral Pressure Ulcer STAGE IV present on admision -s/p extensive debridement by General surgery recommended frequent position change/protein supplements, offloading mattress, being followed by General surgery they recommend to Continue daily local wound care with wet to dry saline soaked fluffs, followed by dry fluffs, abd dressing and tape.recommend outpatient follow up in wound care clinic right heel unstageable pressure injury. POA-Durafiber AG and dry gauze dressing to keep dry - heels off loaded with heel boot protectors already in place right ankle unstabeable pressure injury. POA - off loaded with heel boot protectors already in place left ankle - stage 1 pressure injury. poa -off loaded with heel boot protectors already in place Turn and Reposition every 2 hours and as needed for patient comfort.? Use pillows or wedges to support off loading positions, Off Load all bony prominences with use of pillows and heel boots if needed.? Apply Preventative foams where needed, Monitor for incontinence and moisture control, use barrier creams when needed for prevention and treatment, Provide adequate and supplemental nutrition.? Elevate heels off of bed surface with heel protector boots alreayd in use. Apply skin prep to heels, Cover right heel with Durafiber AG, Dry gauze, Dry ABd pad and gauze wrap. Change every other day Time Attestation Discharge Coordination Time (in mins): 36 Quality: Safe Use of Opioids Does Pt have an Active Cancer Diagnosis on the Problem List?: No Quality: Stroke Does the patient have a stroke diagnosis?: No Physical Exam Vital Signs: Vital Signs: Last Vital Signs Temp 97.4 F 08/15/24 12:00 Pulse 82 08/15/24 12:00 Resp 18 08/15/24 12:00 BP 108/53 L 08/15/24 12:00 Pulse Ox 97 08/15/24 12:00 O2 Del Method Room Air 08/15/24 12:00 O2 Flow Rate 1 08/12/24 07:35 BMI result Body Mass Index 28.5 Const: General: cooperative, comfortable, no acute distress, alert and awake Resp: Effort & Inspection: normal respiratory effort, able to speak in co mplete sentences, no respiratory distress and no use of accessory muscles : Other: chronic desai in place Skin: Other: decubitus ulcer present DS: Data Data Completed and Pending Completed studies during hospitalization [Text1]: Pending at discharge 08/13/24 13:40 Surgical [PTH] Routine Procedures Assistance with Respiratory Ventilation, Less than 24 Consecutive Hours, Continuous Positive Airway Pressure (07/07/22) Bypass Trachea to Cutaneous with Tracheostomy Device, Open Approach (02/09/24) Dilation of Left Ureter with Intraluminal Device, Via Natural or Artificial Opening Endoscopic (07/07/22) Drainage of Left Main Bronchus, Via Natural or Artificial Opening Endoscopic (02/09/24) Drainage of Right Main Bronchus, Via Natural or Artificial Opening Endoscopic (02/09/24) Fluoroscopy of Left Kidney, Ureter and Bladder using Low Osmolar Contrast (07/07/22) Insertion of Endotracheal Airway into Trachea, Via Natural or Artificial Opening (02/09/24) Insertion of Feeding Device into Stomach, Percutaneous Approach (02/09/24) Insertion of Infusion Device into Right Atrium, Percutaneous Approach (02/09/24) Insertion of Infusion Device into Right Cephalic Vein, Percutaneous Approach (06/26/24) Insertion of Infusion Device into Upper Vein, Percutaneous Approach (02/09/24) Removal of Infusion Device from Upper Vein, External Approach (02/09/24) Repair Neck, Stoma, External Approach (02/09/24) Respiratory Ventilation, 24-96 Consecutive Hours (02/09/24) Respiratory Ventilation, Greater than 96 Consecutive Hours (02/09/24) Sabianist of Cardiac Rhythm, Single (07/07/22) Transfusion of Nonautologous Red Blood Cells into Peripheral Vein, Percutaneous Approach (06/26/24) Ultrasonography of Superior Vena Cava, Guidance (02/09/24) Labs on day of discharge: Laboratory Results - last 24 hr 08/14/24 08/15/24 13:08 05:38 WBC 7.8 RBC 2.75 L Hgb 7.6 L Hct 24.8 L MCV 90.2 MCH 27.6 MCHC 30.6 L RDW 19.3 H Plt Count 295 MPV 8.9 L Absolute Nucleated RBC 0.000 Nucleated RBC % (auto) 0.0 Hold Purple Top SEE NOTE Sodium 144 143 Potassium 4.2 4.3 Chloride 114 H 113 H Carbon Dioxide 24 24 Anion Gap 10 L 10 L BUN 21 H 20 H Creatinine 1.37 1.20 Estim Creat Clear Calc 49.4 56.5 Estimated GFR 50 58 Random Glucose 102 83 Calcium 8.4 8.2 L Preliminary micro results at discharge 08/10/24 23:57 Blood Culture - Preliminary Blood - Venous No growth after 48 hours. 08/10/24 23:39 Blood Culture - Preliminary Blood - Venous No growth after 48 hours. Discharge Plan Discharge Anticipated Discharge Date/Time: 08/15/24 16:30 Patient Disposition: [facility] Discharge Diagnosis: decubitus ulcer encephalopathy due to UTI chronic anemia Referrals: [facility] [Outside] - 1 Day (resume short term rehab) Zak Zuluaga MD [Primary Care Provider] - 1 Week Nirali Gonzalez MD [Physician] - 1 Week Discharge Medications: Continued polyethylene glycol 3350 17 gram Powder In Packet 17 g PO DAILY Qty: 30 0RF Rx Instructions: Hold for loose stool. sennosides [senna] 8.6 mg Tablet 17.2 mg PO BEDTIME albuterol sulfate 2.5 mg /3 mL (0.083 %) Solution For Nebulization 2.5 mg INHALATION Q4H PRN (Reason: Shortness Of Breath Or Wheezing) polyvinyl alcohol 1.4 % Drops 1 drp OPHTHALMIC (EYE) Q6H PRN (Reason: Dry Eyes) thiamine HCl (vitamin B1) [Vitamin B-1] 100 mg Tablet 100 mg PO DAILY levothyroxine 100 mcg Tablet 100 mcg PO DAILY@0600 famotidine 20 mg Tablet 20 mg PO BEDTIME magnesium hydroxide [Milk of Magnesia] 400 mg/5 mL Suspension 30 ml PO Q72H PRN (Reason: Constipation) Rx Instructions: If no BM in 3 days. ascorbic acid (vitamin C) 500 mg Tablet 500 mg PO BID amlodipine 10 mg Tablet 10 mg PO DAILY bisacodyl 10 mg Suppository 10 mg HI DAILY PRN (Reason: Constipation) Rx Instructions: If MoM not effective. ferrous sulfate 325 mg (65 mg iron) Tablet 325 mg PO BID gabapentin 100 mg Capsule 100 mg PO BID docusate sodium 100 mg Tablet 100 mg PO BID melatonin 5 mg Tablet 10 mg PO BEDTIME acetaminophen 325 mg tablet 975 mg PO Q6H PRN (Reason: Pain/Fever) amiodarone 200 mg tablet 200 mg PO DAILY nystatin 100,000 unit/gram Powder 1 appl TOPICAL BID Rx Instructions: Apply to Groin. omeprazole 20 mg Capsule,Delayed Release(Dr/Ec) 20 mg PO BID@0630,1630 Qty: 0 0RF finasteride 5 mg Tablet 5 mg PO DAILY Qty: 0 0RF doxazosin 2 mg Tablet 4 mg PO BEDTIME Qty: 0 0RF Protocol: Hold for SBP< HOLD for SBP < : 90 zinc acetate 50 mg (zinc) Capsule 50 mg PO DAILY Rx Instructions: 08/10/24 - 08/24/24 ondansetron HCl 4 mg Tablet 4 mg PO Q8H PRN (Reason: Nausea And Vomiting) Fleet Enema 19-7 gram/118 mL Enema 118 ml HI DAILY PRN (Reason: Constipation) Santyl 250 unit/gram Ointment 1 appl TOPICAL DAILY Rx Instructions: apply to sacrum multivitamin with minerals Tablet 1 tab PO DAILY Acidophilus Capsule 2,000 mmu cells PO BID Rx Instructions: for UTI until 08/14/24 Cold and Hot (menthol) 5 % Adhesive Patch,Medicated 1 patch TOPICAL DAILY Rx Instructions: apply to left knee Lactobacillus acidoph-L.bulgar 1 million cell Tablet 1 tab PO BID Eliquis 2.5 mg Tablet 2.5 mg PO BID Discontinued cefuroxime axetil 250 mg Tablet 250 mg PO BID Rx Instructions: x 7 days ( 08/07/24 - 08/14/24) Discharge Orders: Discharge Order (Routine); Ordered 08/15/24 Ordered By: Reema Herrera Activity on Discharge: As tolerated Stand Alone Forms: Patient Portal Discharge page Print Language: Indonesian Care Plan Goals: see below Health Concerns: sepsis and metabolic encephalopathy due to UTI. sepsis and encephalopathy resolved decubitus ulcer chronic anemia Plan of Treatment: completed course of antibiotics decubitus ulcer - daily local wound care with wet to dry saline soaked fluffs, followed by dry fluffs, abd dressing and tape; frequent position changes, offloading mattress; outpatient follow up with wound care clinic chronic anemia - follow CBC and if H/H drops again consider discussion regarding stopping Eliquis Assessment: see discharge summary
[2024-08-15] MEDS: Acetaminophen 325 MG TABLET 650 MG PO ×2 (13:56→20:43)
--- NOTE | 2024-08-15 14:28 | P.PNIM_ITS ---
Subjective Subjective Date of Service: 08/15/24 Interval History: seen and examined this morning follow up for encephalopathy and UTI, decubitus ulcer no overnight events feels well this am and eager to return to [facility] - unfortunately they are unable to take him back today Review of Systems Review of Systems: Yes all other systems are reviewed and are negative Constitutional Constitutional: Denies chills and Denies fever(s) Physical Exam 2 Vital Signs: Vital Signs: Last Vital Signs Temp 97.4 F 08/15/24 12:00 Pulse 82 08/15/24 12:00 Resp 18 08/15/24 12:00 BP 108/53 L 08/15/24 12:00 Pulse Ox 97 08/15/24 12:00 O2 Del Method Room Air 08/15/24 12:00 O2 Flow Rate 1 08/12/24 07:35 BMI result Body Mass Index 28.5 Const: General: alert and awake Nutritional Appearance: average body habitus Orientation/consciousness: patient oriented x3 Resp: Effort & Inspection: normal respiratory effort, able to speak in complete sentences, no respiratory distress and no use of accessory muscles Cardio: Rate: regular rate GI: Palpation (GI): Soft to palpation Skin: Other: sacral ulcer with dressing in place Neuro: General: patient oriented x3, moves all extremities and CN's II-XI intact bilaterally Objective Data Active Medications Acetaminophen (Acetaminophen 325 Mg Tablet) 650 mg PO Q6H PRN PRN Reason: Pain, Mild 1-3,fever,headache Last Admin: 08/15/24 13:56 Dose: 650 mg Documented By: ANDREIA Albuterol Sulfate (Albuterol Sulfate (0.083%) 2.5 Mg/3 Ml Vial.Neb) 2.5 mg INHALE Q4H PRN PRN Reason: Shortness Of Breath Or Wheezing Amiodarone HCl (Amiodarone Hcl 200 Mg Tablet) [address] [facility] Last Admin: 08/15/24 08:43 Dose: 200 mg Documented By: ANDREIA Amlodipine Besylate (Amlodipine Besylate 10 Mg Tablet) [address] [facility]; Protocol Last Admin: 08/15/24 08:43 Dose: 10 mg Documented By: ANDREIA Apixaban (Apixaban 2.5 Mg Tablet) 2.[address] [facility] Last Admin: 08/15/24 08:42 Dose: 2.5 mg Documented By: ANDREIA Artificial Tears (Artificial Tears 15 Ml Drops) 1 drop EYE-BOTH Q6H PRN PRN Reason: Dry Eyes Ascorbic Acid (Ascorbic Acid 500 Mg Tablet) [address] [facility] Last Admin: 08/15/24 08:42 Dose: 500 mg Documented By: ANDREIA Bisacodyl (Bisacodyl 10 Mg Supp.Rect) 10 mg NE DAILY PRN PRN Reason: Constipation Calcium Carbonate (Calcium Carbonate 750 Mg Tab.Chew) 750 mg PO Q4H PRN PRN Reason: Heartburn Collagenase (Collagenase Clostridium Hist. 30 Gm Tube) [address] [facility]; Protocol Last Admin: 08/15/24 11:48 Dose: Not Given Documented By: ANDREIA Non-Admin Reason: not using Docusate Sodium (Docusate Sodium 100 Mg Capsule) [address] [facility] Last Admin: 08/15/24 08:49 Dose: Not Given Documented By: ANDREIA Non-Admin Reason: multiple stools overnight Doxazosin Mesylate (Doxazosin Mesylate 2 Mg Tablet) [address] [facility]; Protocol Last Admin: 08/14/24 19:25 Dose: 4 mg Documented By: WALTER Famotidine (Famotidine 20 Mg Tablet) [address] [facility] Last Admin: 08/14/24 19:25 Dose: 20 mg Documented By: WALTER Ferrous Sulfate (Ferrous Sulfate 324 Mg Tablet.) [address] [facility] Last Admin: 08/15/24 08:42 Dose: 324 mg Documented By: ANDREIA Finasteride (Finasteride 5 Mg Tablet) [address] [facility] Last Admin: 08/15/24 08:43 Dose: 5 mg Documented By: ANDREIA Gabapentin (Gabapentin 100 Mg Capsule) [address] [facility] Last Admin: 08/15/24 08:42 Dose: 100 mg Documented By: ANDREIA Levothyroxine Sodium (Levothyroxine Sodium 100 Mcg Tablet) 100 mcg PO DAILY@0600 [facility] Last Admin: 08/15/24 05:43 Dose: 100 mcg Documented By: WALTER Magnesium Hydroxide (Milk Of Magnesia 30 Ml Oral.Susp) 30 ml PO DAILY PRN PRN Reason: Constipation Melatonin (Melatonin 3 Mg Tablet) 6 mg PO BEDTIME PRN PRN Reason: Insomnia Melatonin (Melatonin 3 Mg Tablet) [address] [facility] Last Admin: 08/14/24 19:25 Dose: 9 mg Documented By: WALTER Meropenem (Meropenem 1 Gm Vial) [address] [facility] Last Admin: 08/15/24 04:00 Dose: 1 gm Documented By: WALTER Multivitamins/Vitamin C (Multivitamin Tablet) [address] [facility] Last Admin: 08/15/24 08:42 Dose: 1 tab Documented By: ANDREIA Nystatin (Nystatin Powder 15 Gm Bottle) [address] [facility]; Protocol Last Admin: 08/15/24 08:47 Dose: 1 appl Documented By: ANDREIA Omeprazole (Omeprazole 20 Mg Capsule.) 20 mg PO BID@0630,1630 [facility] Last Admin: 08/15/24 05:43 Dose: 20 mg Documented By: WALTER Ondansetron HCl (Ondansetron Hcl 4 Mg/2 Ml Vial) 4 mg IVPUSH Q8H PRN PRN Reason: Nausea and Vomiting Polyethylene Glycol (Polyethylene Glycol 3350 17 Gm Powd.Pack) [address] [facility] Last Admin: 08/15/24 08:48 Dose: Not Given Documented By: ANDREIA Non-Admin Reason: multiple stools overnight Polyethylene Glycol (Polyethylene Glycol 3350 17 Gm Powd.Pack) [address] [facility] Last Admin: 08/15/24 08:48 Dose: Not Given Documented By: ANDREIA Non-Admin Reason: multiple stools overnight Senna (Sennosides 8.6 Mg Tablet) 17.[address] [facility] Last Admin: 08/14/24 22:14 Dose: Not Given Documented By: WALTER Non-Admin Reason: frequent very loose stool Sodium Biphosphate/Sodium Phosphate (Sodium Phosphate,Woods-Dibasic 133 Ml Enema) 118 ml NE DAILY PRN PRN Reason: Constipation Sodium Chloride (0.9 % Sodium Chloride Flush 3 Ml Syringe) [address] [facility] Last Admin: 08/15/24 08:43 Dose: 3 ml Documented By: ANDREIA Thiamine HCl (Thiamine Hcl 100 Mg Tablet) [address] [facility] Last Admin: 08/15/24 08:42 Dose: 100 mg Documented By: ANDREIA Tramadol HCl (Tramadol Hcl 50 Mg Tablet) 25 mg PO Q6H PRN PRN Reason: Pain, Severe (Pain Scale 7-10) Last Admin: 08/15/24 09:58 Dose: 25 mg Documented By: ANDREIA Zinc Sulfate (Zinc Sulfate 220 Mg Capsule) [address] [facility] Last Admin: 08/15/24 08:42 Dose: 220 mg Documented By: ANDREIA Labs 08/15/24 05:38 08/15/24 05:38 Labs: Laboratory Results - last 24 hr 08/15/24 05:38 MCV 90.2 MCH 27.6 MCHC 30.6 L RDW 19.3 H Plt Count 295 MPV 8.9 L Absolute Nucleated RBC 0.000 Nucleated RBC % (auto) 0.0 Anion Gap 10 L Estim Creat Clear Calc 56.5 Estimated GFR 58 Random Glucose 83 Calcium 8.2 L Assessment and Plan (1) Decubitus ulcer of sacral region, stage 4: Status: Acute (2) Urinary tract infection: Status: Acute Plan 84M PMH PAF, HFrEF, HTN, CKD III, GALLITO, GERD, prolonged hospitalizations at [facility] 06/2024 for MDR UTI discharged on Meropenem, sent by SNF for alterd mentation and low BP readings. Acute urinary tract infection complicated with acute metabolic encephalopathy and sepsis recent MDR UTI w ESBL Klebsiella complicated with bacteremia. this admission Blood culture showed no growth, urine culture grew mixed bacterial nohemi on IV meropenem started on 08/11, will continue current antibiotic for total 5 days ending on 08/15 Acute encephalopathy resolved Chronic PEG not in use Tolerating regular diet without signs symptoms of aspiration. Acute lactic acidosis Likely secondary to sepsis, resolved with IV fluids. CKD 3 Stable Cr, monitor BMP Acute on chronic anemia multifactorial, chronic blood loss, inflammatory,and dilutional H/H dropped initially, status post 2 units of packed RBC hematocrit improved to 26.8. Stool guaiac negative. monitor H&H Paroxysmal atrial fibrillation Continue Eliquis restarted on 08/13 and Amiodarone, if H&H drops again will discuss with patient and family regarding discontinuation of anticoagulation. hypothyroid synthroid Sacral Pressure Ulcers-s/p extensive debridement by General surgery/frequent position change/protein supplements, offloading mattress, being followed by General surgery they recommend to Continue daily local wound care with wet to dry saline soaked fluffs, followed by dry fluffs, abd dressing and tape. DVT prophylaxis - resume Eliquis need for inpt: Close follow-up of sacral pressure ulcer status post debridement and to finish IV antibiotic Full code: Family request 1 attempt at CPR Disposition returned back to snf likely in am Quality Stroke Does the patient have a stroke diagnosis?: No VTE Prior VTE?: No VTE Risk Level:: Medical - moderate - high VTE Device Contraindication: Treatment Not Indicated VTE Drug Contraindication: N/A - Med Ordered
[2024-08-15] MEDS: Calcium Carbonate 750 MG TAB.CHEW PO (20:36)
[2024-08-15] MEDS: Sennosides 8.6 MG TABLET 17.2 MG PO (20:36)
[2024-08-15] MEDS: Docusate Sodium 100 MG CAPSULE PO (20:36)
[2024-08-15] MEDS: Famotidine 20 MG TABLET PO (20:36)
[2024-08-15] MEDS: Doxazosin Mesylate 2 MG TABLET 4 MG PO (20:37)
[2024-08-15] MEDS: Melatonin 3 MG TABLET 9 MG PO (20:37)
--- NOTE | 2024-08-15 22:59 | PC.RT ---
ptrefused cpap x 3 nights jennifer row. cpap order dc'd per policy
--- NOTE | 2024-08-16 02:04 | PC.NURSE ---
Pt seen o n bed alert and oriented x2-3 off with times, pleasant, pt refused to repo most of the time, able to take po meds, c/o back pain, prn Tylenol po given, slept after, bed alarm on, airloss on.
[2024-08-16] MEDS: Levothyroxine Sodium 100 MCG TABLET PO (05:55)
[2024-08-16] MEDS: Omeprazole 20 MG CAPSULE.DR PO (05:55)
[2024-08-16] MEDS: traMADoL HCL 50 MG TABLET 25 MG PO ×2 (05:56→14:32)
[2024-08-16] MEDS: Acetaminophen 325 MG TABLET 650 MG PO (05:56)
[2024-08-16 07:15] VITALS: BP 109/53; PULSE 78; RESP 18; TEMP 36.6; O2SAT 94
[2024-08-16] MEDS: 0.9 % Sodium Chloride Flush 3 ML SYRINGE IVFLUSH (08:48)
[2024-08-16] MEDS: Thiamine HCL 100 MG TABLET PO (08:49)
[2024-08-16] MEDS: Ferrous Sulfate 324 MG TABLET.DR PO (08:49)
[2024-08-16] MEDS: amLODIPine Besylate 10 MG TABLET PO (08:49)
[2024-08-16] MEDS: Zinc Sulfate 220 MG CAPSULE PO (08:49)
[2024-08-16] MEDS: Finasteride 5 MG TABLET PO (08:50)
[2024-08-16] MEDS: Multivitamin TABLET 1 TAB PO (08:50)
[2024-08-16] MEDS: Ascorbic Acid 500 MG TABLET PO (08:50)
[2024-08-16] MEDS: Apixaban 2.5 MG TABLET PO (08:50)
[2024-08-16] MEDS: Gabapentin 100 MG CAPSULE PO (08:50)
[2024-08-16] MEDS: Amiodarone HCL 200 MG TABLET PO (08:50)
[2024-08-16] MEDS: polyethylene glycoL 3350 17 GM POWD.PACK PO (08:51)
[2024-08-16] MEDS: Docusate Sodium 100 MG CAPSULE PO (08:51)
--- NOTE | 2024-08-16 11:31 | MHC.CM.PN ---
PT MEDICALLY CLEARED TO DC [facility] HAS CONFIRMED THEY ARE READY TO ACCEPT PT BLS TRANSPORT BOOKED FOR 1400 HOURS VIA RL PT AWARE
--- NOTE | 2024-08-16 11:37 | MHC.CLN ---
F/U DIET=REGULAR. RECEIVING ENSURE MAX BID TO PROVIDE 300 KCALS, 60 G PROTEIN. INCREASED NUTRITION NEEDS DUE TO PRESSURE INJURIES. STAGE IV PRESSURE INJURY TO SACRUM AND UNSTAGEABLE AREAS TO RIGHT HEEL AND RIGHT ANKLE. MOST RECENT PO INTAKE APPEARS POOR. FOLLOW FOR PO INTAKE AND SKIN INTEGRITY. CONTINUE CURRENT DIET AND SUPPLEMENT.
[2024-08-16] MEDS: Collagenase Clostridium Hist. 30 GM TUBE 1 APPL TOPICAL (13:54)
[2024-08-16 15:05] VITALS: BP 119/63; PULSE 77; RESP 18; TEMP 36.4; O2SAT 95
== END 2024-08-16 15:17 | disposition skilled nursing facility (03) | DRG 853 ==
LOC: HO.ED 08-11 03:10 → HO.EDOVER 08-11 04:24 → HO.S3 08-11 07:42
PROVIDERS: Hospitalist; Internal Medicine; Surgery; Admitting Provider Student in an Organized Health Care Education/Training Program; Emergency Provider Emergency Medicine Emergency Medical Services; PCP Family Medicine Geriatric Medicine; Visit Provider Physician Assistant Medical
PROC: 0KDN0ZZ Extraction of Right Hip Muscle, Open Approach (ICD-10-PCS; principal; 2024-08-13 12:50)
DX: A41.9 Sepsis, unspecified organism (principal); L89.154 Pressure ulcer of sacral region, stage 4; E87.21 Acute metabolic acidosis; I13.0 Hypertensive heart and chronic kidney disease with heart failure and stage 1 through stage 4 chronic kidney disease, or unspecified chronic kidney disease; I50.22 Chronic systolic (congestive) heart failure; F05 Delirium due to known physiological condition; I96 Gangrene, not elsewhere classified; N39.0 Urinary tract infection, site not specified; I25.10 Atherosclerotic heart disease of native coronary artery without angina pectoris; E03.9 Hypothyroidism, unspecified; F03.90 Unspecified dementia, unspecified severity, without behavioral disturbance, psychotic disturbance, mood disturbance, and anxiety; D50.0 Iron deficiency anemia secondary to blood loss (chronic); I48.0 Paroxysmal atrial fibrillation; N18.30 Chronic kidney disease, stage 3 unspecified; G47.33 Obstructive sleep apnea (adult) (pediatric); D63.1 Anemia in chronic kidney disease; L89.610 Pressure ulcer of right heel, unstageable; L89.521 Pressure ulcer of left ankle, stage 1; L89.510 Pressure ulcer of right ankle, unstageable; Z20.822 Contact with and (suspected) exposure to COVID-19; Z93.1 Gastrostomy status; Z87.440 Personal history of urinary (tract) infections; Z79.01 Long term (current) use of anticoagulants; Z79.890 Hormone replacement therapy; Z79.899 Other long term (current) drug therapy
CPT/HCPCS: 0241U; 36415; 36600; 80048; 80053; 81001; 82140; 82803; 83605; 83735; 83880; 84484; 85025; 85027; 85610; 86850; 86900; 86901; 86923; 87040; 87086; 88304; 93005; 99285; C1758; J1630; J1644; J2003; J2004; J2060; J2185; J2704; J2795; J3010; P9016

== ENCOUNTER → 2024-08-10 | Outpatient (BNV) | payer MEDICARE, SELFPAY | PROVIDERS: Admitting Provider Student in an Organized Health Care Education/Training Program; Emergency Provider Emergency Medicine Emergency Medical Services; PCP Internal Medicine; Visit Provider Internal Medicine | DX: R94.31 Abnormal electrocardiogram [ECG] [EKG] (principal); R41.82 Altered mental status, unspecified | CPT/HCPCS: 93010 ==

== ENCOUNTER → 2024-08-11 04:15 | Outpatient (BNV) | payer MEDICARE, SELFPAY | PROVIDERS: Admitting Provider Student in an Organized Health Care Education/Training Program; Emergency Provider Emergency Medicine Emergency Medical Services; PCP Internal Medicine; Visit Provider Student in an Organized Health Care Education/Training Program | DX: L89.154 Pressure ulcer of sacral region, stage 4 (principal); L89.150 Pressure ulcer of sacral region, unstageable; E87.21 Acute metabolic acidosis; N39.0 Urinary tract infection, site not specified; G93.49 Other encephalopathy; B99.9 Unspecified infectious disease | CPT/HCPCS: 99223; 99232; 99239; 99499 ==

== ENCOUNTER 2024-08-20 11:41 | Outpatient (AMB) | payer MEDICARE, SELFPAY ==
[2024-08-20 11:48] VITALS: BP 110/60; PULSE 81
--- NOTE | 2024-08-20 11:48 | A.OFFVIS_ITS ---
Vital Signs 08/20/24 11:48 Height 6 ft 1 in BMI Reason not done Patient refused/unable BP 110/60 Blood Pressure Location Lt brachial Position Supine Pulse 81 Pulse Source Monitor Intake Visit Reasons: Follow up Allergies ibuprofen [IBUPROFEN] Allergy (Intermediate, Verified 08/10/24 23:34) HIVES hydromorphone [From DILAUDID] Adverse Reaction (Intermediate, Verified 08/10/24 23:34) ILEUS procaine [From Novocain] Adverse Reaction (Intermediate, Verified 08/10/24 23 :34) has no numbing effect-states monocain works narcotic pain meds Adverse Reaction (Intermediate, Uncoded 08/10/24 23:34) does not relieve pain per patient Medication List - Last Reconciled 08/20/24 by Luis Leavitt MD acetaminophen 975 mg PO Q6H PRN albuterol sulfate 2.5 mg inhalation Q4H PRN amiodarone 200 mg PO DAILY amlodipine 10 mg PO DAILY apixaban (Eliquis) 2.5 mg PO BID ascorbic acid (vitamin C) 500 mg PO BID bisacodyl [address] DAILY PRN collagenase clostridium histo. (Santyl) 1 appl topical DAILY docusate sodium 100 mg PO BID doxazosin 4 mg See Protocol PO BEDTIME famotidine 20 mg PO BEDTIME ferrous sulfate 325 mg PO BID finasteride 5 mg PO DAILY gabapentin 100 mg PO BID Lactobacillus acidoph-L.bulgar 1 million cell 1 tab PO BID Lactobacillus acidophilus (Acidophilus capsule) 2,000 mmu cells PO BID levothyroxine 100 mcg PO DAILY@0600 magnesium hydroxide (Milk of Magnesia) 30 mL PO Q72H PRN melatonin 10 mg PO BEDTIME menthol 5% (Cold and Hot (menthol)) 1 patch topical DAILY multivitamin with minerals 1 tab PO DAILY nystatin 1 appl topical BID omeprazole 20 mg PO BID@0630,1630 ondansetron HCl 4 mg PO Q8H PRN polyethylene glycol 3350 17 grams PO DAILY polyvinyl alcohol 1.4% 1 drp ophthalmic (eye) Q6H PRN sennosides (senna) 17.2 mg PO BEDTIME sodium phosphates 19-7 gram/118 mL (Fleet Enema) [address] DAILY PRN thiamine HCl (vitamin B1) (Vitamin B-1) 100 mg PO DAILY zinc acetate 50 mg PO DAILY HPI Comments Details: Ramon returns for follow up. He comes in a stretcher. He has a history of paroxysmal atrial fibrillation/flutter. He has had atrial fibrillation ablation in 2020 and 2018. History of chronic heart failure with mildly reduced ejection fraction. Over the last year, it seems that he has had several hospitalizations. Currently living in rehab facility and it seems he cannot ambulate at all. Comes in a stretcher. Minimal to no activity at baseline. However, he seems to be mentally quite alert and able to answer all the questions. He does not have any chest pain or shortness of breath or any clear- cut cardiac symptoms. Per admission documentation, seems to have had numerous issues including UTI, bacteremia, metabolic encephalopathy, sepsis, lactic acidosis, acute on chronic anemia sacral pressure also among others. It seems that he also required blood transfusions. [facility] Medical History Delirium Altered mental status Sepsis Atherosclerotic cardiovascular disease PAF (paroxysmal atrial fibrillation) NSTEMI (non-ST elevated myocardial infarction) Chronic renal disease, stage 3, moderately decreased glomerular filtration rate (GFR) between 30-59 mL/min/1.73 square meter Chest pain Heart failure Thyroid disease GERD (gastroesophageal reflux disease) On anticoagulant therapy COVID-19 vaccine series completed Symptomatic cholelithiasis HTN (hypertension) Hyperlipidemia Atrial fibrillation Sleep apnea Elevated PSA Facet arthropathy, cervical BPH loc w urin obs/LUTS Surgical History (Updated 08/12/24 @ 12:09 by Alysa Thapa PA-C) S/P percutaneous endoscopic gastrostomy (PEG) tube placement Hx of tracheostomy S/P laparoscopic cholecystectomy Hx of cataract extraction History of total replacement of both hip joints Hx of cystoscopy H/O colonoscopy History of surgery Family History Unknown No problems noted. Social History Household Members: Unknown / Unable to assess Housing: Unknown / Unable to assess Are you a primary care management assistant to a significant other at home: No Do you presently have visiting nurse or other home services: No Alcohol intake: never Comment: patient is chair, bedbound Patient Tobacco Use Status: Never used Tobacco Advance Directives Date on File: 03/07/24 service: No Current occupational status: retired Review of Systems Const Denies weakness ENT Denies dizziness Card Denies chest pain, Denies chest pain with activity, Denies syncope, Denies rapid heart rate, Denies pedal edema, Denies edema, Denies leg edema, Denies lightheadedness, Denies palpitations, Denies dyspnea, Denies dyspnea on exertion and Denies orthopnea Resp Denies cough, Denies dyspnea and Denies dyspnea on exertion GI Denies hematochezia and Denies change in stool character Musc Denies abnormal gait, Denies muscle cramps, Denies muscle weakness, Denies numbness, Denies radiating pain into limb and Denies tingling Neuro Denies abnormal gait, Denies dizziness, Denies syncope, Denies numbness, Denies tingling and Denies weakness Endo Denies palpitations Physical Exam Vital Signs: Last Vital Signs Pulse 81 08/20/24 11:48 BP 110/60 08/20/24 11:48 Const General: comfortable and no acute distress Orientation/consciousness: patient oriented x3 HEENT Other: Unremarkable Head: Yes normal to inspection Neck Neck: Yes normal visual inspection Chest Chest palpation & inspection: normal inspection of the chest Resp Auscultation: clear to auscultation bilaterally Cardio Palpation: normal PMI Heart sounds: S1 normal heart sound present, S2 normal heart sound present, no gallops, no murmurs and no rubs GI Palpation (GI): Soft to palpation Back/Spine/Pelvis Other: unremarkable Skin General skin exam: no rashes or lesions noted Neuro General: patient oriented x3 Extrem General: Yes normal to inspection Psych Mental Status: mental status grossly normal Office Procedures EKG Details: EKG with underlying sinus rhythm at 81/Min; CT prolongation to 228 milliseconds; incomplete right bundle-branch block pattern; cannot exclude old inferior or anterolateral infarct. [id number], Complete Assessment & Plan Assessment & Plan (1) PAF (paroxysmal atrial fibrillation): Code(s): I48.0 - Paroxysmal atrial fibrillation Category: Medical Plan: History of cardioversions as well as ablations. Continue Amiodarone without changes. Continue Eliquis. Per prior notes, history of bradycardia and hence could not to use beta- blockers. Previously taking Bisoprolol 2.5 mg daily. (2) Atherosclerotic cardiovascular disease: Code(s): I25.10 - Atherosclerotic heart disease of [place] coronary artery without angina pectoris Category: Medical Plan: In the past, he was transferred to [facility] for cardiac catheterization after NSTEMI but due to multiple medical issues, he did not get the procedure. Myocardial perfusion imaging study from 2022 reported to be probably normal. In an echocardiogram from last year, there is evidence of wall motion abnormality and hence most likely has got underlying CAD. Clinically, no angina. Additionally, in the current state of being immobile, he is not suitable for any ischemic workup. Anemia is also additional concern especially with blood transfusions. (3) Nonrheumatic aortic (valve) stenosis: Code(s): I35.0 - Nonrheumatic aortic (valve) stenosis Category: Medical Plan: Ulka-jv-[id number] aortic stenosis in the last echocardiogram. Can be followed periodically. (4) Cardiomyopathy: Code(s): I42.9 - Cardiomyopathy, unspecified Category: Medical Plan: A prior [facility] echocardiogram had reported LVEF of 40-45% and another echocardiogram from [place] had reported rather 60%. In the most recent study from 2023, LVEF 45-50%; moderate diastolic dysfunction. No overt clinical heart failure. (5) HTN (hypertension): Code(s): I10 - Essential (primary) hypertension Category: Medical Plan: Seems acceptable. (6) Anemia: Code(s): D64.9 - Anemia, unspecified Category: Medical Qualifiers: Anemia type: unspecified type Qualified Code(s): D64.9 - Anemia, unspecified Plan: Per hospitalization notes, thought to be multifactorial with various listed possibilities including chronic blood loss, inflammatory/delusional but there was apparently no active bleed. Patient is on Eliquis and that is a concern. If he indeed does require recurrent transfusions, then may need to stop the Eliquis. Mentioned that in the rehabilitation consult notes. Plan Total time spent including review of hospitalization records, counseling, documentation, coordination of care-60 minutes. Coding Level of Care Code Est Pt Level 5 (18332) Complex EM visit Add On G2211 Diagnoses PAF (paroxysmal atrial fibrillation) I48.0 Atherosclerotic cardiovascular disease I25.10 Nonrheumatic aortic (valve) stenosis I35.0 Cardiomyopathy I42.9 HTN (hypertension) I10 Anemia D64.9 Anemia type: unspecified type CPT Codes EKG - CPT: 52560-[id number], Complete ([id number])
--- OUTSIDE RECORDS SUMMARY | 2024-08-20 13:14 | XMS_ITS | Encounter Summary ---
Author Organization [facility] Address [address] [place] [address] Care Team Providers Care Referral Clerk Name Role Phone Uday Sheehan Primary Care Provider [phone] Encounter Details Date Type Department Care Team (Late st Contact Info) Description 05/13/2024 Lab Requisition [facility] [address] [place] [address] Salo Whyte MD [address] [place] [address] Acute and chronic respiratory failure with hypoxia (HCC); No diagnosis Social History Tobacco Use Types Packs/Day Years Used Date Smoking Tobacco: Former Cigarettes Alcohol Use Standard Drinks/Week Comments Defer 0 (1 standard drink = 0.6 oz pur e alcohol) Sex and Gender Information Value Date Recorded Sex Assigned at Male 03/08/2024 3:18 PM EDT Legal Sex Male 11:27 AM EDT Gender Identity Male 03/29/2024 1:49 AM EDT Sexual Orientation Don't know 03/29/2024 1: 49 AM EDT documented as of this encounter Plan of Treatment Not on file documented as of this encounter Procedures * Due to [place] state law, this organization might not be sharing negative HIV tests. Procedure Name Priority Date/Time Associated Diagnosis Comments CBC AUTO DIFFERENTIAL Routine 05/13/2024 9:32 AM EST Acute and chronic respiratory failure with hypoxia (HCC) No diagnosis COMPREHENSIVE METABOLIC PANEL Routine 05/13/2024 9:32 AM EST Acute and chronic respiratory failure with hypoxia (HCC) No diagnosis documented in this encounter Results * Due to [place] state law, this organization might not be sharing negative HIV tests. * (ABNORMAL) CBC Auto Differential (05/13/2024 9:32 AM EST) WBC 5.9 4.8 - 10.8 10*3/uL 05/13/2024 10:06 AM EST [facility] RBC 3.01(L) 4.70 - 6.10 10*6/uL 05/13/2024 10:06 AM [facility] Hemoglobin 8.3(L) 13.7 - 16.5 g/dL 05/13/2024 10:06 AM [facility] Hematocrit 26.0(L) 40.5 - 48.5 % 05/13/2024 10:06 AM [facility] MCV 86.4 80.0 - 94.0 fL 05/13/2024 10:06 AM [facility] MCH 27.6 26.0 - 34.0 pg 05/13/2024 10:06 AM [facility] MCHC 31.9 31.0 - 36.0 g/dL 05/13/2024 10:06 AM [facility] RDW 16.8(H) 12.0 - 15.0 % 05/13/2024 10:06 AM [facility] RDW Standard Deviation 53.1(H) 35.1 - 43.9 fL 05/13/2024 10:06 AM [facility] Platelets 143 140 - 440 10*3/uL 05/13/2024 10:06 AM [facility] MPV 10.6 9.4 - 12.4 fL 05/13/2024 10:06 AM [facility] Neutrophil % 57.3 50.0 - 75.0 % 05/13/2024 10:06 AM [facility] Immature Grans % 0.2 0.0 - 0.9 % 05/13/2024 10:06 AM [facility] Lymphocyte % 26.4 20.0 - 44.0 % 05/13/2024 10:06 AM EST [facility] Monocyte % 11.2 0.0 - 14.0 % 05/13/2024 10:06 AM EST [facility] Eosinophil % 4.6 0.0 - 5.0 % 05/13/2024 10:06 AM EST [facility] Basophil % 0.3 0.0 - 2.0 % 05/13/2024 10:06 AM EST [facility] Neutrophil # 3.36 1.80 - 7.70 10*3/uL 05/13/2024 10:06 AM EST [facility] Immature Grans # <0.03 0.00 - 0.03 10*3/uL 05/13/2024 10:06 AM EST [facility] Lymphocyte # 1.60 1.00 - 4.75 10*3/uL 05/13/2024 10:06 AM EST [facility] Monocyte # 0.70 0.00 - 6.00 10*3/uL 05/13/2024 10:06 AM EST [facility] Eosinophil # 0.30 0.00 - 0.80 10*3/uL 05/13/2024 10:06 AM EST [facility] Basophil # <0.03 0.00 - 0.20 10*3/uL 05/13/2024 10:06 AM EST [facility] nRBC % 0.0 0 - 0 /100 WBCs 05/13/2024 10:06 AM EST [facility] nRBC # <0.01 0.00 - 0.13 10*3/uL 05/13/2024 10:06 AM EST [facility] Blood Structure of peripheral vein / Unknown Venipuncture / Unknown 05/13/2024 9:32 AM EST 05/13/2024 9:32 AM EST us Salo Whyte MD LAB BLOOD ORDERABLES Final Result Performing Organization Address City/State/[facility] Co de Phone Number [facility] [address] [place] [address] [address] [place] [address], [place] [phone] * (ABNORMAL) Comprehensive Metabolic Panel (05/13/2024 9:32 AM EST) NA 138 136 - 145 mmol/L 05/13/2024 10:36 AM EST [facility] K 3.6 3.5 - 5.1 mmol/L 05/13/2024 10:36 AM EST [facility] Cl 99 98 - 109 mmol/L 05/13/2024 10:36 AM EST [facility] CO2 30 22 - 32 mmol/L 05/13/2024 10:36 AM EST [facility] Anion Gap 13 >=0 05/13/2024 10:36 AM [facility] Glucose 118(H) 60 - 99 mg/dL 05/13/2024 10:36 AM [facility] Creatinine 1.73(H) 0.50 - 1.12 mg/dL 05/13/2024 10:36 AM EST [facility] Calcium 9.5 8.4 - 10.4 mg/dL 05/13/2024 10:36 AM [facility] Total Protein 6.1(L) 6.6 - 8.7 g/dL 05/13/2024 10:36 AM [facility] Albumin 3.0(L) 3.5 - 5.0 g/dL 05/13/2024 10:36 AM [facility] Bilirubin, Total 0.4 0.2 - 1.2 mg/dL 05/13/2024 10:36 AM EST [facility] Alkaline Phosphatase 102 40 - 129 U/L 05/13/2024 10:36 AM EST [facility] AST 18 0 - 40 U/L 05/13/2024 10:36 AM [facility] ALT 17 <=41 U/L 05/13/2024 10:36 AM [facility] BUN 36(H) 8 - 23 mg/dL 05/13/2024 10:36 AM EST [facility] eGFR 38(L) >=60 mL/min/1. 73m2 05/13/2024 10:36 AM EST [facility] Comment:The estimated glomer ular filtration rate (eGFR) is calculated using a new formula developed by the NKF-ASN task force to eliminate race-based correction factors. The new formula uses serum/plasma creatinine, age, and gender to determine eGFR. A value below 60mls/min might indicate kidney disease and will be flagged. For additional information, see Larry et al, Am J Kidney Dis. 2021;79(2):268- 288, A Unifying Approach for GFR estimation: Recommendations of the NKF-ASN Task Force on Reassessing the Inclusion of Race in Diagnosing Kidney Disease . Globulin, Total 3.1 2.1 - 4.2 g/dL 05/13/2024 10:36 AM EST [facility] A/G Ratio 1.0(L) 1.5 - 3.0 05/13/2024 10:36 AM EST [facility] Blood Structure of peripheral vein / Unknown Venipuncture / Unknown 05/13/2024 9:32 AM EST 05/13/2024 9:32 AM EST Salo Whyte MD LAB BLOOD ORDERABLES Final Result Performing Organization Address City/State/[facility] Co de Phone Number [facility] [address] [place] [address], documented in this encounter Visit Diagnoses Diagnosis Acute and chronic respiratory failure with hypoxia (HCC) No diagnosis documented in this encounter Additional Health Concerns Infection Onset Date Last Indicated Resolved Time Multidrug resistant organisms MRSA 03/25/20242023 documented as of this encounter Care Teams Referral Clerk Relationship Specialty Start Date End Date Uday Sheehan: [phone] [address] [place] [address] [place] [address] PCP - General Internal Medicine 03/27/24 documented as of this encounter
--- OUTSIDE RECORDS SUMMARY | 2024-08-20 13:14 | XMS_ITS | Encounter Summary ---
Author Organization [facility] Address [address] [place] [address] Care Team Providers Care Director Alumni Relations Name Role Phone Uday Sheehan Primary Care Provider [phone] Encounter Details Date Type Department Care Team (Late st Contact Info) Description 05/14/2024 Lab Requisition [facility] [address] [place] [address] Valarie Pierson MD [address] [place] [id number] Acute and chronic respiratory failure with hypoxia [...] of this encounter Procedures * Due to [place] ob[place]on law, this organization might not be sharing negative HIV tests. Procedure Name Priority Date/Time Associated Diagnosis Comments BASIC METABOLIC PANEL Routine 05/14/2024 10:15 AM EST Acute and chronic respiratory failure with hypoxia (HCC) No diagnosis documented in this encounter Results * Due to [place] obiwon law, this organization might not be sharing negative HIV tests. * (ABNORMAL) Basic Metabolic Panel (05/14/2024 10:15 AM EST) NA 141 136 - 145 mmol/L 05/14/2024 10:44 AM EST [facility] K 3.7 3.5 - 5.1 mmol/L 05/14/2024 10:44 AM EST [facility] Cl 102 98 - 109 mmol/L 05/14/2024 10:44 AM EST [facility] CO2 28 22 - 32 mmol/L 05/14/2024 10:44 AM EST [facility] BUN 34(H) 8 - 23 mg/dL 05/14/2024 10:44 AM EST [facility] Creatinine 1.69(H) 0.50 - 1.12 mg/dL 05/14/2024 10:44 AM [facility] Glucose 100(H) 60 - 99 mg/dL 05/14/2024 10:44 AM EST [facility] Calcium 9.4 8.4 - 10.4 mg/dL 05/14/2024 10:44 AM [facility] Anion Gap 15 >=0 05/14/2024 10:44 AM [facility] eGFR 40(L) >=60 mL/min/1. 73m2 05/14/2024 10:44 AM EST [facility] Comment:The estimated glomer ular filtration rate (eGFR) is calculated using a new formula developed by the NKF-ASN task force to eliminate race-based correction factors. The new formula uses serum/plasma creatinine, age, and gender to determine eGFR. A value below 60mls/min might indicate kidney disease and will be flagged. For additional information, see Juarez et al, Am J Kidney Dis. 2021;79(2):268- 288, A Unifying Approach for GFR estimation: Recommendations of the NKF-ASN Task Force on Reassessing the Inclusion of Race in Diagnosing Kidney Disease . Blood Structure of peripheral vein / Unknown Venipuncture / Unknown 05/14/2024 10:15 AM EST 05/14/2024 10:15 AM EST us Valarie Pierson MD LAB BLOOD ORDERABLES Final Res ult [facility] [address] [place] [address], documented in this encounter Visit Diagnoses Diagnosis Acute and chronic respiratory failure with hypoxia (HCC) No diagnosis documented in this encounter Additional Health Concerns Infection Onset Date Last Indicated Resolved Time Multidrug resistant organisms MRSA 03/25/20242023 documented as of this encounter Care Teams Director Alumni Relations Relationship Specialty Start Date End Date Uday Sheehan [address] [place] [address] dr Donna Thompson, [place] [address] PCP - General Internal Medicine 03/27/24 documented as of this encounter
--- OUTSIDE RECORDS SUMMARY | 2024-08-20 13:14 | XMS_ITS | Encounter Summary ---
Author Organization [facility] Address [address] [place] [address] Care Team Providers Care Agronomy Technician Name Role Phone Uday Sheehan Primary Care Provider [phone] Encounter Details Date Type Department Care Team (Late st Contact Info) Description 04/24/2024 Lab Requisition [facility] [address] [place] [address] Lidia Barry NP [address] [place] [address] Acute and chronic respiratory failure with hypoxia [...] of this encounter Procedures * Due to [place] state law, this organization might not be sharing negative HIV tests. Procedure Name Priority Date/Time Associated Diagnosis Comments CBC AUTO DIFFERENTIAL Routine 04/24/2024 8:53 AM EDT Acute and chronic respiratory failure with hypoxia (HCC) No diagnosis COMPREHENSIVE METABOLIC PANEL Routine 04/24/2024 8:53 AM EDT Acute and chronic respiratory failure with hypoxia (HCC) No diagnosis documented in this encounter Results * Due to [place] state law, this organization might not be sharing negative HIV tests. * (ABNORMAL) CBC Auto Differential (04/24/2024 8:53 AM EDT) WBC 5.5 4.8 - 10.8 10*3/uL 04/24/2024 10:46 AM EDT [facility] RBC 2.90(L) 4.70 - 6.10 10*6/uL 04/24/2024 10:46 AM EDT [facility] Hemoglobin 8.1(L) 13.7 - 16.5 g/dL 04/24/2024 10:46 AM EDT [facility] Hematocrit 25.3(L) 40.5 - 48.5 % 04/24/2024 10:46 AM EDT [facility] MCV 87.2 80.0 - 94.0 fL 04/24/2024 10:46 AM EDT [facility] MCH 27.9 26.0 - 34.0 pg 04/24/2024 10:46 AM EDT [facility] MCHC 32.0 31.0 - 36.0 g/dL 04/24/2024 10:46 AM EDT [facility] RDW 16.2(H) 12.0 - 15.0 % 04/24/2024 10:46 AM EDT [facility] RDW Standard Deviation 51.6(H) 35.1 - 43.9 fL 04/24/2024 10:46 AM EDT [facility] Platelets 160 140 - 440 10*3/uL 04/24/2024 10:46 AM EDT [facility] MPV 10.7 9.4 - 12.4 fL 04/24/2024 10:46 AM EDT [facility] Neutrophil % 51.2 50.0 - 75.0 % 04/24/2024 10:46 AM EDT [facility] Immature Grans % 0.2 0.0 - 0.9 % 04/24/2024 10:46 AM EDT [facility] Lymphocyte % 24.6 20.0 - 44.0 % 04/24/2024 10:46 AM EDT [facility] Monocyte % 18.4(H) 0.0 - 14.0 % 04/24/2024 10:46 AM EDT [facility] Eosinophil % 5.1(H) 0.0 - 5.0 % 04/24/2024 10:46 AM EDT [facility] Basophil % 0.5 0.0 - 2.0 % 04/24/2024 10:46 AM EDT [facility] Neutrophil # 2.80 1.80 - 7.70 10*3/uL 04/24/2024 10:46 AM EDT [facility] Immature Grans # <0.03 0.00 - 0.03 10*3/uL 04/24/2024 10:46 AM EDT [facility] Lymphocyte # 1.40 1.00 - 4.75 10*3/uL 04/24/2024 10:46 AM EDT [facility] Monocyte # 1.00 0.00 - 6.00 10*3/uL 04/24/2024 10:46 AM EDT [facility] Eosinophil # 0.30 0.00 - 0.80 10*3/uL 04/24/2024 10:46 AM EDT [facility] Basophil # <0.03 0.00 - 0.20 10*3/uL 04/24/2024 10:46 AM EDT [facility] nRBC % 0.0 0 - 0 /100 WBCs 04/24/2024 10:46 AM EDT [facility] nRBC # <0.01 0.00 - 0.13 10*3/uL 04/24/2024 10:46 AM EDT [facility] Blood Structure of peripheral vein / Unknown Venipuncture / Unknown 04/24/2024 8:53 AM EDT 04/24/2024 10:36 AM EDT Lidia Barry PILLOWCASE CUTTER LAB BLOOD ORDERABLES Final R esult [facility] [address] [place] [address], * (ABNORMAL) Comprehensive Metabolic Panel (04/24/2024 8:53 AM EDT) NA 140 136 - 145 mmol/L 04/24/2024 11:40 AM EDT [facility] K 4.2 3.5 - 5.1 mmol/L 04/24/2024 11:40 AM EDT [facility] Cl 96(L) 98 - 109 mmol/L 04/24/2024 11:40 AM EDT [facility] CO2 33(H) 22 - 32 mmol/L 04/24/2024 11:40 AM EDT [facility] Anion Gap 15 >=0 04/24/2024 11:40 AM EDT [facility] Glucose 100(H) 60 - 99 mg/dL 04/24/2024 11:40 AM EDT [facility] Creatinine 1.60(H) 0.50 - 1.12 mg/dL 04/24/2024 11:40 AM EDT [facility] Calcium 9.6 8.4 - 10.4 mg/dL 04/24/2024 11:40 AM EDT [facility] Total Protein 5.9(L) 6.6 - 8.7 g/dL 04/24/2024 11:40 AM EDT [facility] Albumin 3.1(L) 3.5 - 5.0 g/dL 04/24/2024 11:40 AM EDT [facility] Bilirubin, Total 0.3 0.2 - 1.2 mg/dL 04/24/2024 11:40 AM EDT [facility] Alkaline Phosphatase 112 40 - 129 U/L 04/24/2024 11:40 AM EDT [facility] AST 32 0 - 40 U/L 04/24/2024 11:40 AM EDT [facility] ALT 33 <=41 U/L 04/24/2024 11:40 AM EDT [facility] BUN 53(H) 8 - 23 mg/dL 04/24/2024 11:40 AM EDT [facility] eGFR 42(L) >=60 mL/min/1. 73m2 04/24/2024 11:40 AM EDT [facility] Comment:The estimated glomer ular filtration [...] in Diagnosing Kidney Disease . Globulin, Total 2.8 2.1 - 4.2 g/dL 04/24/2024 11:40 AM EDT [facility] A/G Ratio 1.1(L) 1.5 - 3.0 04/24/2024 11:40 AM EDT [facility] Blood Structure of peripheral vein / Unknown Venipuncture / Unknown 04/24/2024 8:53 AM EDT 04/24/2024 10:36 AM EDT [facility] BLOOD ORDERABLES Final R esult [facility] [address] [place] [address], documented in this encounter Visit Diagnoses Diagnosis Acute and chronic respiratory failure with hypoxia (HCC) No diagnosis documented in this encounter Additional Health Concerns Infection Onset Date Last Indicated Resolved Time Multidrug resistant organisms MRSA 03/25/20242023 documented as of this encounter Care Teams Agronomy Technician Relationship Specialty Start Date End Date Uday Sheehan [address] [place] [address] dr Donna Thompson, ALEC [address] PCP - General Internal Medicine 03/27/24 documented as of this encounter
--- OUTSIDE RECORDS SUMMARY | 2024-08-20 13:14 | XMS_ITS | Encounter Summary ---
Author Organization [facility] Address [address] [place] [address] Care Team Providers Care Steam Generating Powerplant Mechanic Name Role Phone dUay Sheehan Primary Care Provider [phone] Encounter Details Date Type Department Care Team (Late st Contact Info) Description 05/07/2024 Lab Requisition [facility] Department [address] [place] [id number] [address] [address] Acute and chronic respiratory failure with hypoxia [...] of this encounter Procedures * Due to [place] state law, this organization might not be sharing negative HIV tests. Procedure Name Priority Date/Time Associated Diagnosis Comments RESPIRATORY CULTURE W/GRAM STAIN Routine 05/07/2024 3:33 PM EDT Acute and chronic respiratory failure with hypoxia (HCC) No diagnosis METHICILLIN RESISTANT STAPHYLOCOCCUS AUREUS (MRSA) CULTURE SCREEN Routine 05/07/2024 3:33 PM EDT Acute and chronic respiratory failure with hypoxia (HCC) No diagnosis documented in this encounter Results * Due to [place] state law, this organization might not be sharing negative HIV tests. * (ABNORMAL) Methicillin Resistant Staphylococcus aureus (MRSA) Culture Screen (05/07/2024 3:33 PM EDT) MRSA Culture Methicillin resistant Staphylococcus aureus (MRSA)(A) [place] [facility] 05/09/2024 9:10 AM EDT [facility] Swab Nasal structure / Unknown 05/07/2024 3:33 PM EDT 05/07/2024 4:19 PM EDT [facility] MICROBIOLOGY - GENERAL ORDER KINSEY Final Result Performing Organization Address City/State/[facility] Co de Phone Number [facility] [address] [place] [address] [address] [place] [address], * (ABNORMAL) Respiratory Culture w/Gram Stain (05/07/2024 3:33 PM EDT) Respiratory Culture Moderate Methicillin resistant Staphylococcus aureus (MRSA)(A) MINIMUM INHIBITORY CONCENTRATION ([place]) 05/10/2024 8:39 AM EDT [facility] Gram Stain Result <10 per LPF Epithelial Cells 05/10/2024 8:39 AM EDT [facility] Gram Stain Result >25 per LPF White Blood Cells Seen 05/10/2024 8:39 AM EDT [facility] Gram Stain Result Rare Gram Positive Cocci 05/10/2024 8:39 AM EDT [facility] Gram Stain Result Rare Pleomorphic gram positive rods 05/10/2024 8:39 AM EDT [facility] Sputum Sputum / Unknown 05/07/2024 3:33 PM EDT 05/07/2024 3:33 PM EDT Narrative [facility] - 05/10/2024 8:39 AM EDT Moderate normal respiratory nohemi present. Organism Antibiotic Method Susceptibility Methicillin resistant Staphylococcus aureus (MRSA) Ciprofloxacin MINIMUM INHIBITORY CONCENTRATION ([place]) <=0.5 ug/ml: Susceptible Methicillin resistant Staphylococcus aureus (MRSA) Clindamycin MINIMUM INHIBITORY CONCENTRATION ([place]) <=0.25 ug/ml: Susceptible Methicillin resistant Staphylococcus aureus (MRSA) Erythromycin MINIMUM INHIBITORY CONCENTRATION ([place]) <=0.25 ug/ml: Susceptible Methicillin resistant Staphylococcus aureus (MRSA) Gentamicin MINIMUM INHIBITORY CONCENTRATION ([place]) <=0.5 ug/ml: Susceptible Methicillin resistant Staphylococcus aureus (MRSA) Levofloxacin MINIMUM INHIBITORY CONCENTRATION ([place]) 0.25 ug/ml: Susceptible Methicillin resistant Staphylococcus aureus (MRSA) Linezolid MINIMUM INHIBITORY CONCENTRATION ([place]) 2 ug/ml: Susceptible Methicillin resistant Staphylococcus aureus (MRSA) Oxacillin MINIMUM INHIBITORY CONCENTRATION ([place]) >=4 ug/ml: Resistant Methicillin resistant Staphylococcus aureus (MRSA) Penicillin G MINIMUM INHIBITORY CONCENTRATION ([place]) >=0.5 ug/ml: Resistant Methicillin resistant Staphylococcus aureus (MRSA) Rifampin MINIMUM INHIBITORY CONCENTRATION ([place]) <=0.5 ug/ml: Susceptible Methicillin resistant Staphylococcus aureus (MRSA) Tetracycline MINIMUM INHIBITORY CONCENTRATION ([place]) <=1 ug/ml: Susceptible Methicillin resistant Staphylococcus aureus (MRSA) Trimethoprim + Sulfamethoxazole MINIMUM INHIBITORY CONCENTRATION ([place]) <=10 ug/ml: Susceptible Methicillin resistant Staphylococcus aureus (MRSA) Vancomycin MINIMUM INHIBITORY CONCENTRATION ([place]) <=0.5 ug/ml: Susceptible Comment: [place] values in mcg/mL. Inducible Clindamycin Resistance has not been found. 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
--- OUTSIDE RECORDS SUMMARY | 2024-08-20 13:14 | XMS_ITS | Encounter Summary ---
Author Organization [facility] Address [address] [place] [address] Care Team Providers Care Animal Husbandry Worker Name Role Phone Uday Sheehan Primary Care Provider [phone] Encounter Details Date Type Department Care Team (Late st Contact Info) Description 05/18/2024 Lab Requisition [facility] Lab [address] [place] [address] No diagnosis Social History Tobacco Use Types [...] on file documented as of this encounter Visit Diagnoses Diagnosis No diagnosis documented in this encounter Additional Health Concerns Infection Onset Date Last Indicated Resolved Time 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
--- OUTSIDE RECORDS SUMMARY | 2024-08-20 13:14 | XMS_ITS | Encounter Summary ---
Author Organization [facility] Address [address] [place] [address] Care Team Providers Care Welt Treater Name Role Phone Uday Sheehan Primary Care Provider [phone] Encounter Details Date Type Department Care Team (Late st Contact Info) Description 04/29/2024 Lab Requisition [facility] [address] [place] [address] Lidia Barry NP [address] [place] [address] Acute and chronic respiratory failure with hypoxia [...] of this encounter Procedures * Due to [place] state law, this organization might not be sharing negative HIV tests. Procedure Name Priority Date/Time Associated Diagnosis Comments CBC AUTO DIFFERENTIAL Routine 04/29/2024 12:28 PM EDT Acute and chronic respiratory failure with hypoxia (HCC) No diagnosis COMPREHENSIVE METABOLIC PANEL Routine 04/29/2024 12:28 PM EDT Acute and chronic respiratory failure with hypoxia (HCC) No diagnosis documented in this encounter Results * Due to [place] state law, this organization might not be sharing negative HIV tests. * (ABNORMAL) CBC Auto Differential (04/29/2024 12:28 PM EDT) WBC 4.8 4.8 - 10.8 10*3/uL 04/29/2024 1:00 PM EDT [facility] RBC 2.81(L) 4.70 - 6.10 10*6/uL 04/29/2024 1:00 PM EDT [facility] Hemoglobin 7.7(L) 13.7 - 16.5 g/dL 04/29/2024 1:00 PM EDT [facility] Hematocrit 24.5(L) 40.5 - 48.5 % 04/29/2024 1:00 PM EDT [facility] MCV 87.2 80.0 - 94.0 fL 04/29/2024 1:00 PM EDT [facility] MCH 27.4 26.0 - 34.0 pg 04/29/2024 1:00 PM EDT [facility] MCHC 31.4 31.0 - 36.0 g/dL 04/29/2024 1:00 PM EDT [facility] RDW 15.7(H) 12.0 - 15.0 % 04/29/2024 1:00 PM EDT [facility] RDW Standard Deviation 50.7(H) 35.1 - 43.9 fL 04/29/2024 1:00 PM EDT [facility] Platelets 141 140 - 440 10*3/uL 04/29/2024 1:00 PM EDT [facility] MPV 11.0 9.4 - 12.4 fL 04/29/2024 1:00 PM EDT [facility] Neutrophil % 51.9 50.0 - 75.0 % 04/29/2024 1:00 PM EDT [facility] Immature Grans % 0.2 0.0 - 0.9 % 04/29/2024 1:00 PM EDT [facility] Lymphocyte % 26.7 20.0 - 44.0 % 04/29/2024 1:00 PM EDT [facility] Monocyte % 14.3(H) 0.0 - 14.0 % 04/29/2024 1:00 PM EDT [facility] Eosinophil % 6.3(H) 0.0 - 5.0 % 04/29/2024 1:00 PM EDT [facility] Basophil % 0.6 0.0 - 2.0 % 04/29/2024 1:00 PM EDT [facility] Neutrophil # 2.47 1.80 - 7.70 10*3/uL 04/29/2024 1:00 PM EDT [facility] Immature Grans # <0.03 0.00 - 0.03 10*3/uL 04/29/2024 1:00 PM EDT [facility] Lymphocyte # 1.30 1.00 - 4.75 10*3/uL 04/29/2024 1:00 PM EDT [facility] Monocyte # 0.70 0.00 - 6.00 10*3/uL 04/29/2024 1:00 PM EDT [facility] Eosinophil # 0.30 0.00 - 0.80 10*3/uL 04/29/2024 1:00 PM EDT [facility] Basophil # <0.03 0.00 - 0.20 10*3/uL 04/29/2024 1:00 PM EDT [facility] nRBC % 0.0 0 - 0 /100 WBCs 04/29/2024 1:00 PM EDT [facility] nRBC # <0.01 0.00 - 0.13 10*3/uL 04/29/2024 1:00 PM EDT [facility] Blood Structure of peripheral vein / Unknown Venipuncture / Unknown 04/29/2024 12:28 PM EDT 04/29/2024 12:29 PM EDT Lidia Barry BOX STAMPER LAB BLOOD ORDERABLES Final R esult [facility] [address] [place] [address], * (ABNORMAL) Comprehensive Metabolic Panel (04/29/2024 12:28 PM EDT) NA 140 136 - 145 mmol/L 04/29/2024 1:18 PM EDT [facility] K 3.8 3.5 - 5.1 mmol/L 04/29/2024 1:18 PM EDT [facility] Cl 99 98 - 109 mmol/L 04/29/2024 1:18 PM EDT [facility] CO2 32 22 - 32 mmol/L 04/29/2024 1:18 PM EDT [facility] Anion Gap 13 >=0 04/29/2024 1:18 PM EDT [facility] Glucose 92 60 - 99 mg/dL 04/29/2024 1:18 PM EDT [facility] Creatinine 1.44(H) 0.50 - 1.12 mg/dL 04/29/2024 1:18 PM EDT [facility] Calcium 9.5 8.4 - 10.4 mg/dL 04/29/2024 1:18 PM EDT [facility] Total Protein 6.1(L) 6.6 - 8.7 g/dL 04/29/2024 1:18 PM EDT [facility] Albumin 2.9(L) 3.5 - 5.0 g/dL 04/29/2024 1:18 PM EDT [facility] Bilirubin, Total 0.3 0.2 - 1.2 mg/dL 04/29/2024 1:18 PM EDT [facility] Alkaline Phosphatase 92 40 - 129 U/L 04/29/2024 1:18 PM EDT [facility] AST 43(H) 0 - 40 U/L 04/29/2024 1:18 PM EDT [facility] ALT 43(H) <=41 U/L 04/29/2024 1:18 PM EDT [facility] BUN 40(H) 8 - 23 mg/dL 04/29/2024 1:18 PM EDT [facility] eGFR 48(L) >=60 mL/min/1. 73m2 04/29/2024 1:18 PM EDT [facility] Comment:The estimated glomer ular filtration [...] in Diagnosing Kidney Disease . Globulin, Total 3.2 2.1 - 4.2 g/dL 04/29/2024 1:18 PM EDT [facility] A/G Ratio 0.9(L) 1.5 - 3.0 04/29/2024 1:18 PM EDT [facility] Blood Structure of peripheral vein / Unknown Venipuncture / Unknown 04/29/2024 12:28 PM EDT 04/29/2024 12:29 PM EDT [facility] BLOOD ORDERABLES Final R esult [facility] [address] [place] [address] [address] [place] [address], documented in this encounter Visit Diagnoses Diagnosis Acute and chronic respiratory failure with hypoxia (HCC) No diagnosis documented in this encounter Additional Health Concerns Infection Onset Date Last Indicated Resolved Time Multidrug resistant organisms MRSA 03/25/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
--- OUTSIDE RECORDS SUMMARY | 2024-08-20 13:14 | XMS_ITS | Encounter Summary ---
Author Organization [facility], Address [address] [place] [address] Phone Care Team Providers Care Mechanical Systems Control Engineer Name Role Phone Uday Sheehan MD Primary Care Provider [phone] Encounter Details Date Type Department Care Team (Late st Contact Info) Description 04/20/2022 Documentation Only [facility], [address] [place] [phone] Adi Jaeger MD [address] [facility] [place] [phone] Social History Tobacco Use Types Packs/Day Years Used Date Smoking Tobacco: Never Alcohol Use Standard Drinks/Week Comments No 0 (1 standard drink = 0.6 oz pur e alcohol) Sex and Gender Information Value Date Recorded Sex Assigned at Not on file Legal Sex Male 4:32 PM EST Gender Identity Not on file Sexual Orientation Not on file COVID-19 Exposure Response Date Recorded In the last 10 days, have yo u been in contact with someone who was confirmed or suspected to have Coronavirus/COVID-19? No / Unsure 04/12/2022 9:35 AM EDT documented as of this encounter Plan of Treatment Not on file documented as of this encounter Visit Diagnoses Not on filedocumented in this encounter Care Teams Mechanical Systems Control Engineer Relationship Specialty Start Date End Date Uday Sheehan MD [address] [place] PCP - General 05/14/19 documented as of this encounter
--- OUTSIDE RECORDS SUMMARY | 2024-08-20 13:14 | XMS_ITS | Encounter Summary ---
Author Organization [facility] Address [address] [place] [address] Care Team Providers Care Talent Acquisition Associate Name Role Phone Uday Sheehan Primary Care Provider [phone] Encounter Details Date Type Department Care Team (Late st Contact Info) Description 05/06/2024 Lab Requisition [facility] [address] [place] [address] Salo Whyte MD [address] [place] [address] Acute and chronic respiratory failure with hypoxia [...] of this encounter Procedures * Due to [place] state law, this organization might not be sharing negative HIV tests. Procedure Name Priority Date/Time Associated Diagnosis Comments CBC AUTO DIFFERENTIAL Routine 05/06/2024 10:36 AM EDT Acute and chronic respiratory failure with hypoxia (HCC) No diagnosis COMPREHENSIVE METABOLIC PANEL Routine 05/06/2024 10:36 AM EDT Acute and chronic respiratory failure with hypoxia (HCC) No diagnosis documented in this encounter Results * Due to [place] state law, this organization might not be sharing negative HIV tests. * (ABNORMAL) CBC Auto Differential (05/06/2024 10:36 AM EDT) WBC 5.8 4.8 - 10.8 10*3/uL 05/06/2024 11:12 AM EDT [facility] RBC 3.04(L) 4.70 - 6.10 10*6/uL 05/06/2024 11:12 AM EDT [facility] Hemoglobin 8.4(L) 13.7 - 16.5 g/dL 05/06/2024 11:12 AM EDT [facility] Hematocrit 26.9(L) 40.5 - 48.5 % 05/06/2024 11:12 AM EDT [facility] MCV 88.5 80.0 - 94.0 fL 05/06/2024 11:12 AM EDT [facility] MCH 27.6 26.0 - 34.0 pg 05/06/2024 11:12 AM EDT [facility] MCHC 31.2 31.0 - 36.0 g/dL 05/06/2024 11:12 AM EDT [facility] RDW 16.8(H) 12.0 - 15.0 % 05/06/2024 11:12 AM EDT [facility] RDW Standard Deviation 53.7(H) 35.1 - 43.9 fL 05/06/2024 11:12 AM EDT [facility] Platelets 179 140 - 440 10*3/uL 05/06/2024 11:12 AM EDT [facility] MPV 10.3 9.4 - 12.4 fL 05/06/2024 11:12 AM EDT [facility] Neutrophil % 55.7 50.0 - 75.0 % 05/06/2024 11:12 AM EDT [facility] Immature Grans % 0.3 0.0 - 0.9 % 05/06/2024 11:12 AM EDT [facility] Lymphocyte % 25.6 20.0 - 44.0 % 05/06/2024 11:12 AM EDT [facility] Monocyte % 12.2 0.0 - 14.0 % 05/06/2024 11:12 AM EDT [facility] Eosinophil % 5.7(H) 0.0 - 5.0 % 05/06/2024 11:12 AM EDT [facility] Basophil % 0.5 0.0 - 2.0 % 05/06/2024 11:12 AM EDT [facility] Neutrophil # 3.24 1.80 - 7.70 10*3/uL 05/06/2024 11:12 AM EDT [facility] Immature Grans # <0.03 0.00 - 0.03 10*3/uL 05/06/2024 11:12 AM EDT [facility] Lymphocyte # 1.50 1.00 - 4.75 10*3/uL 05/06/2024 11:12 AM EDT [facility] Monocyte # 0.70 0.00 - 6.00 10*3/uL 05/06/2024 11:12 AM EDT [facility] Eosinophil # 0.30 0.00 - 0.80 10*3/uL 05/06/2024 11:12 AM EDT [facility] Basophil # <0.03 0.00 - 0.20 10*3/uL 05/06/2024 11:12 AM EDT [facility] nRBC % 0.0 0 - 0 /100 WBCs 05/06/2024 11:12 AM EDT [facility] nRBC # <0.01 0.00 - 0.13 10*3/uL 05/06/2024 11:12 AM EDT [facility] Blood Structure of peripheral vein / Unknown Venipuncture / Unknown 05/06/2024 10:36 AM EDT 05/06/2024 10:36 AM EDT us Salo Lyubchik MD LAB BLOOD ORDERABLES Final Result [facility] [address] [place] [address], [place] [phone] * (ABNORMAL) Comprehensive Metabolic Panel (05/06/2024 10:36 AM EDT) NA 143 136 - 145 mmol/L 05/06/2024 11:24 AM EDT [facility] K 3.6 3.5 - 5.1 mmol/L 05/06/2024 11:24 AM EDT [facility] Cl 103 98 - 109 mmol/L 05/06/2024 11:24 AM EDT [facility] CO2 29 22 - 32 mmol/L 05/06/2024 11:24 AM EDT [facility] Anion Gap 15 >=0 05/06/2024 11:24 AM EDT [facility] Glucose 93 60 - 99 mg/dL 05/06/2024 11:24 AM EDT [facility] Creatinine 1.63(H) 0.50 - 1.12 mg/dL 05/06/2024 11:24 AM EDT [facility] Calcium 9.2 8.4 - 10.4 mg/dL 05/06/2024 11:24 AM EDT [facility] Total Protein 6.2(L) 6.6 - 8.7 g/dL 05/06/2024 11:24 AM EDT [facility] Albumin 3.0(L) 3.5 - 5.0 g/dL 05/06/2024 11:24 AM EDT [facility] Bilirubin, Total 0.3 0.2 - 1.2 mg/dL 05/06/2024 11:24 AM EDT [facility] Alkaline Phosphatase 102 40 - 129 U/L 05/06/2024 11:24 AM EDT [facility] AST 31 0 - 40 U/L 05/06/2024 11:24 AM EDT [facility] ALT 35 <=41 U/L 05/06/2024 11:24 AM EDT [facility] BUN 35(H) 8 - 23 mg/dL 05/06/2024 11:24 AM EDT [facility] eGFR 41(L) >=60 mL/min/1. 73m2 05/06/2024 11:24 AM EDT [facility] Comment:The estimated glomer ular filtration [...] Globulin, Total 3.2 2.1 - 4.2 g/dL 05/06/2024 11:24 AM EDT [facility] A/G Ratio 0.9(L) 1.5 - 3.0 05/06/2024 11:24 AM EDT [facility] Blood Structure of peripheral vein / Unknown Venipuncture / Unknown 05/06/2024 10:36 AM EDT 05/06/2024 10:36 AM EDT Salo Whyte MD LAB BLOOD ORDERABLES Final Result [facility] [address] [facility] [address]ND [place] [address], documented in this encounter Visit Diagnoses Diagnosis Acute and chronic respiratory failure with hypoxia (HCC) No diagnosis documented in this encounter Additional Health Concerns Infection Onset Date Last Indicated Resolved Time 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
--- OUTSIDE RECORDS SUMMARY | 2024-08-20 13:14 | XMS_ITS | Encounter Summary ---
Author Organization [facility] Address [address] [place] [address] Care Team Providers Care Office Employee Name Role Phone Uday Sheehan MD Primary Care Provider [phone] Encounter Details Date Type Department Care Team (Late st Contact Info) Description 08/05/2024 Lab Requisition [facility] - Main Lab [address] [facility] [place] [address] Tabby Bledsoe MD [address] [id number] Urinary tract infection, site not specified Social History Tobacco Use Types Packs/Day Years Used Date Smoking Tobacco: Never Assessed Sex and Gender Information Value Date Recorded Sex Assigned at Not on file Legal Sex Male 10:42 AM EST Gender Identity Not on file Sexual Orientation Not on file documented as of this encounter Plan of Treatment Not on file documented as of this encounter Procedures Procedure Name Priority Date/Time Associated Diagnosis Comments URINALYSIS WITH REFLEX MICROSCOPIC AND CULTURE Routine 08/03/2024 7:00 AM EST Urinary tract infection, site not specified ESPINOZA URINE CULTURE TUBE Routine 08/03/2024 7:00 AM EST Urinary tract infection, site not specified URINALYSIS WITH REFLEX MICROSCOPIC AND CULTURE Routine 08/03/2024 7:00 AM EST Urinary tract infection, site not specified CULTURE URINE Routine 08/03/2024 7:00 AM EST Urinary tract infection, site not specified documented in this encounter Results * (ABNORMAL) Culture urine (08/03/2024 7:00 AM EST) Pathologist [facility] Culture, Urine >100,000 CFU/mL Escherichia coli(A) FRANKLIN 08/07/2024 9:46 AM EST [facility] Comment: This is an edited result. Previous organism was Gram negative bacilli on 08/06/2024 at 0828 EST. Urine Indwelling urinary catheter / Unknown Non-blood Collection / Unknown 08/03/2024 7:00 AM EST 08/05/2024 1:39 PM EST Narrative Organism Antibiotic Method Susceptibility Escherichia coli Amoxicillin/Clavulanate FRANKLIN 8 ug/ml: Susceptible Escherichia coli Ampicillin/Sulbactam FRANKLIN >=32 ug/ml: Resistant Escherichia coli Piperacillin/Tazobactam FRANKLIN <=4 ug/ml: Susceptible Escherichia coli Cefazolin (Urine) FRANKLIN 4 ug/ml: Susceptible Escherichia coli Cefoxitin FRANKLIN <=4 ug/ml: Susceptible Escherichia coli Ceftazidime FRANKLIN <=0.5 ug/ml: Susceptible Escherichia coli Ceftriaxone FRANKLIN <=0.25 ug/ml: Susceptible Escherichia coli Cefepime FRANKLIN <=0.12 ug/ml: Susceptible Escherichia coli Meropenem FRANKLIN <=0.25 ug/ml: Susceptible Escherichia coli Amikacin FRANKLIN 4 ug/ml: Susceptible Escherichia coli Gentamicin FRANKLIN <=1 ug/ml: Susceptible Escherichia coli Ciprofloxacin FRANKLIN >=4 ug/ml: Resistant Escherichia coli Levofloxacin FRANKLIN >=8 ug/ml: Resistant Escherichia coli Nitrofurantoin FRANKLIN <=16 ug/ml: Susceptible Escherichia coli Trimethoprim/Sulfamethoxazole FRANKLIN >=320 ug/ml: Resistant Tabby Bledsoe MD LAB MICROBIOLOGY - GENER AL ORDERABLES Final Result [facility] [address] [place] [address], [place] [phone] * (ABNORMAL) Urinalysis with reflex microscopic and culture (08/03/2024 7:00 AM EST) [facility] Specific [place] Urine 1.014 1.003 - 1.030 LAB URINALYSIS - AUTOMATED METHOD 08/05/2024 1:39 PM EST [facility] pH, Urine 5.5 5.0 - 8.0 pH LAB URINALYSIS - AUTOMATED METHOD 08/05/2024 1:39 PM [facility] Leukocytes, Urine Large(A) Negative LAB URINALYSIS - AUTOMATED METHOD 08/05/2024 1:39 PM [facility] Nitrite, Urine Negative Negative LAB URINALYSIS - AUTOMATED METHOD 08/05/2024 1:39 PM [facility] Protein, Urine 30(A) <=Trace mg/dL LAB URINALYSIS - AUTOMATED METHOD 08/05/2024 1:39 PM [facility] Glucose, Urine Negative Negative mg/dL LAB URINALYSIS - AUTOMATED METHOD 08/05/2024 1:39 PM [facility] Ketones, Urine Negative Negative mg/dL LAB URINALYSIS - AUTOMATED METHOD 08/05/2024 1:39 PM [facility] Urobilinogen , Urine 0.2 0.2 - 1.0 mg/dL LAB URINALYSIS - AUTOMATED METHOD 08/05/2024 1:39 PM [facility] Bilirubin, Urine Negative Negative LAB URINALYSIS - AUTOMATED METHOD 08/05/2024 1:39 PM [facility] Blood, Urine Large(A) Negative LAB URINALYSIS - AUTOMATED METHOD 08/05/2024 1:39 PM [facility] RBC, Urine 271.0(H) 0 - 4 /HPF LAB URINALYSIS - AUTOMATED METHOD 08/05/2024 1:39 PM [facility] WBC, Urine 1,434.7(H) 0 - 4 /HPF LAB URINALYSIS - AUTOMATED METHOD 08/05/2024 1:39 PM [facility] Squamous Epithelial, Urine 41 0 - 60 /LPF LAB URINALYSIS - AUTOMATED METHOD 08/05/2024 1:39 PM [facility] Crystals, Urine MOD CALCIUM OXALATE /LPF LAB URINALYSIS - AUTOMATED METHOD 08/05/2024 1:39 PM [facility] Bacteria, Urine Many(A) Negative /HPF LAB URINALYSIS - AUTOMATED METHOD 08/05/2024 1:39 PM [facility] Hyaline Casts, Urine 8.1(H) 0 - 3 /LPF LAB URINALYSIS - AUTOMATED METHOD 08/05/2024 1:39 PM [facility] Urine Indwelling urinary catheter / Unknown Non-blood Collection / Unknown 08/03/2024 7:00 AM EST 08/05/2024 11:47 AM EST Tabby Bledsoe MD LAB URINE ORDERABLES Fin al Result Performing Organization Address [facility]/ZIP Co de Phone Number [facility] [address] [place] [address], [place] [phone] * Espinoza urine culture tube (08/03/2024 7:00 AM EST) Extra Tube Hold for add-ons. 08/05/2024 1:01 PM [facility] Comment:Auto resulted. Urine Indwelling urinary catheter / Unknown Non-blood Collection / Unknown 08/03/2024 7:00 AM EST 08/05/2024 11:47 AM EST Tabby Bledsoe MD LAB URINE ORDERABLES Fin al Result Performing Organization Address City/[facility]/ZIP Co de Phone Number [facility] [address] [place] [address], [place] [phone] documented in this encounter Visit Diagnoses Diagnosis Urinary tract infection, site not specified documented in this encounter Additional Health Concerns Infection Onset Date Last Indicated Resolved Time ESBL 06/22/2024 06/22/2024 documented as of this encounter Care Teams Office Employee Relationship Specialty Start Date End Date Uday Sheehan MD [address] [place] [address] Dr Donna [place] PCP - General Meat Packager 12/19/16 documented as of this encounter
--- OUTSIDE RECORDS SUMMARY | 2024-08-20 13:14 | XMS_ITS | Encounter Summary ---
Author Organization [facility] Address [address] [place] [address] Care Team Providers Care Quality Assurance Monitor Body Name Role Phone Uday Sheehan Primary Care Provider [phone] Encounter Details Date Type Department Care Team (Late st Contact Info) Description 05/07/2024 Lab Requisition [facility] [address] [place] [address] Salo Whyte MD [address] [place] [address] Acute and chronic respiratory failure with hypoxia [...] Procedure Name Priority Date/Time Associated Diagnosis Comments URIC ACID Routine 05/07/2024 8:30 AM EDT Acute and chronic respiratory failure with hypoxia (HCC) No diagnosis TSH Routine 05/07/2024 8:30 AM EDT Acute and chronic respiratory failure with hypoxia (HCC) No diagnosis T4, FREE Routine 05/07/2024 8:30 AM EDT Acute and chronic respiratory failure with hypoxia (HCC) No diagnosis documented in this encounter Results * Due to [place] state law, this organization might not be sharing negative HIV tests. * (ABNORMAL) Uric Acid (05/07/2024 8:30 AM EDT) [facility] Uric Acid 7.3(H) 3.4 - 7.0 mg/dL 05/07/2024 9:23 AM EDT [facility] Blood Structure of peripheral vein / Unknown Venipuncture / Unknown 05/07/2024 8:30 AM EDT 05/07/2024 8:30 AM EDT us Salo Whyte MD LAB BLOOD ORDERABLES Final Result Performing Organization Address City/[facility]/[place] Co de Phone Number [facility] [address] [place] [address], [place] [phone] * (ABNORMAL) TSH (05/07/2024 8:30 AM EDT) [facility] TSH 9.930(H) 0.270 - 4.200 uIU/mL 05/07/2024 9:23 AM EDT [facility] Blood Structure of peripheral vein / Unknown Venipuncture / Unknown 05/07/2024 8:30 AM EDT 05/07/2024 8:30 AM EDT us Salo Whyte MD LAB BLOOD ORDERABLES Final Result Performing Organization Address City/[facility]/[place] Co de Phone Number [facility] [address] [place] [address], [place] [phone] * T4, Free (05/07/2024 8:30 AM EDT) [facility] Free T4 1.35 0.80 - 1.80 ng/dL 05/07/2024 9:23 AM EDT [facility] Comment: Females: (ng/dL) First Trimester ? 0.95-1.58 ng/dL Second Trimester ?0.76-1.24 ng/dL Third Trimester ? 0.70-1.25 ng/dL Dietary supplements containing biotin may interfere in assays and may skew analyte results to be falsely high. ?? For patients receiving the recommended daily doses of biotin, draw samples at least 8 hours following the last biotin supplementation. ?? For patients on micheal-doses of biotin supplements, draw samples at least 72 hours following the last biotin supplementation. 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
--- OUTSIDE RECORDS SUMMARY | 2024-08-20 13:14 | XMS_ITS | Encounter Summary ---
Author Organization [facility] Address [address] [place] [address] Care Team Providers Care Electrical Prospecting Operator Name Role Phone Uday Sheehan MD Primary Care Provider [phone] Encounter Details Date Type Department Care Team (Late st Contact Info) Description 08/03/2024 Lab Requisition [facility] - Main Lab [address] [facility] [place] [address] Tabby Bledsoe MD [address] [address] Bacteremia Social History Tobacco Use Types Packs/Day Years [...] Procedure Name Priority Date/Time Associated Diagnosis Comments COMPLETE BLOOD COUNT Routine 08/05/2024 7:45 AM EST Bacteremia COMPREHENSIVE METABOLIC PANEL Routine 08/05/2024 7:45 AM EST Bacteremia documented in this encounter Results * (ABNORMAL) Comprehensive metabolic panel (08/05/2024 7:45 AM EST) Sodium 141 133 - 145 mmol/L LAB CHEMISTRY METHOD 08/05/2024 1:55 PM EST [facility] Potassium 3.6 3.5 - 5.5 mmol/L LAB CHEMISTRY METHOD 08/05/2024 1:55 PM EST [facility] Chloride 106 96 - 110 mmol/L LAB CHEMISTRY METHOD 08/05/2024 1:55 PM [facility] CO2 25 21 - 32 mmol/L LAB CHEMISTRY METHOD 08/05/2024 1:55 PM [facility] Anion Gap 10 3 - 11 LAB CHEMISTRY METHOD 08/05/2024 1:55 PM [facility] Glucose 70 70 - 100 mg/dL LAB CHEMISTRY METHOD 08/05/2024 1:55 PM [facility] BUN 31(H) 5 - 25 mg/dL LAB CHEMISTRY METHOD 08/05/2024 1:55 PM [facility] Creatinine 2.20(H) 0.70 - 1.30 mg/dL LAB CHEMISTRY METHOD 08/05/2024 1:55 PM [facility] eGFR 29(L) >=60 mL/min/1. 73m2 LAB CHEMISTRY METHOD 08/05/2024 1:55 PM [facility] Comment:Calculation based on the??Chronic Kidney Disease Epidemiology Collaboration (CKD-EPI) equation refit??without adjustment for race. BUN/Creatinine Ratio 14.1 LAB CHEMISTRY METHOD 08/05/2024 1:55 PM [facility] Calcium 8.3(L) 8.5 - 10.5 mg/dL LAB CHEMISTRY METHOD 08/05/2024 1:55 PM [facility] AST (SGOT) 30 10 - 42 unit/L LAB CHEMISTRY METHOD 08/05/2024 1:55 PM [facility] ALT (SGPT) 17 10 - 60 unit/L LAB CHEMISTRY METHOD 08/05/2024 1:55 PM [facility] Alkaline Phosphatase 103 42 - 121 unit/L LAB CHEMISTRY METHOD 08/05/2024 1:55 PM [facility] Total Protein 5.4(L) 6.0 - 8.0 g/dL LAB CHEMISTRY METHOD 08/05/2024 1:55 PM [facility] Albumin 1.4(L) 3.2 - 5.0 g/dL LAB CHEMISTRY METHOD 08/05/2024 1:55 PM EST [facility] Total Bilirubin 0.3 0.0 - 1.4 mg/dL LAB CHEMISTRY METHOD 08/05/2024 1:55 PM [facility] Blood Venous blood specimen / Unknown Venipuncture / Unknown 08/05/2024 7:45 AM EST 08/05/2024 12:00 PM EST us Tabby Bledsoe MD LAB BLOOD ORDERABLES Fin al Result [facility] [address] [place] [address], * (ABNORMAL) Complete blood count (08/05/2024 7:45 AM EST) WBC 11.9(H) 4.8 - 10.8 K/mcL LAB HEMETOLOGY METHOD 08/05/2024 1:29 PM [facility] RBC 2.50(L) 4.50 - 5.50 M/mcL LAB HEMETOLOGY METHOD 08/05/2024 1:29 PM [facility] Hemoglobin 6.5(L) 13.5 - 17.5 g/dL LAB HEMETOLOGY METHOD 08/05/2024 1:29 PM [facility] Hematocrit 22.0(L) 42.0 - 54.0 % LAB HEMETOLOGY METHOD 08/05/2024 1:29 PM [facility] MCV 87.6 79.0 - 98.0 FL LAB HEMETOLOGY METHOD 08/05/2024 1:29 PM [facility] MCH 25.9(L) 27.0 - 32.0 pcg LAB HEMETOLOGY METHOD 08/05/2024 1:29 PM [facility] MCHC 29.5(L) 32.0 - 37.0 g/dL LAB HEMETOLOGY METHOD 08/05/2024 1:29 PM EST [facility] RDW 19.6(H) 11.0 - 15.0 % LAB HEMETOLOGY METHOD 08/05/2024 1:29 PM [facility] Platelets 268 130 - 400 K/mcL LAB HEMETOLOGY METHOD 08/05/2024 1:29 PM [facility] MPV 9.0 7.0 - 11.0 FL LAB HEMETOLOGY METHOD 08/05/2024 1:29 PM [facility] NRBC 0.0 <1.0 % LAB HEMETOLOGY METHOD 08/05/2024 1:29 PM [facility] NRBC Absolute 0.00 <0.10 K/mcL LAB HEMETOLOGY METHOD 08/05/2024 1:29 PM [facility] Blood Venous blood specimen / Unknown Venipuncture / Unknown 08/05/2024 7:45 AM EST 08/05/2024 12:00 PM EST Tabby Bledsoe MD LAB BLOOD ORDERABLES Fin al Result [facility] [address] [place] [address], documented in this encounter Visit Diagnoses Diagnosis Bacteremia documented in this encounter Additional Health Concerns Infection Onset Date Last Indicated Resolved Time ESBL 06/22/2024 06/22/2024 documented as of this encounter Care Teams Electrical Prospecting Operator Relationship Specialty Start Date End Date Uday Sheehan MD [address] [facility] [address] Donna [place] PCP - General Gas Main Fitter 12/19/16 documented as of this encounter
--- OUTSIDE RECORDS SUMMARY | 2024-08-20 13:14 | XMS_ITS | Encounter Summary ---
Author Organization [facility] Address [address] [place] [address] Care Team Providers Care Security Flex Utility Officer Name Role Phone Uday Sheehan Primary Care Provider [phone] Encounter Details Date Type Department Care Team (Late st Contact Info) Description 05/18/2024 Lab Requisition [facility] [address] [place] [address] Valarie Pierson MD [address] [place] [id number] Acute and chronic respiratory failure with hypoxia [...] of this encounter Procedures * Due to [place] [employer] law, this organization might not be sharing negative HIV tests. Procedure Name Priority Date/Time Associated Diagnosis Comments BASIC METABOLIC PANEL Routine 05/18/2024 6:18 AM EST Acute and chronic respiratory failure with hypoxia (HCC) No diagnosis documented in this encounter Results * Due to [place] [employer] law, this organization might not be sharing negative HIV tests. * (ABNORMAL) Basic Metabolic Panel (05/18/2024 6:18 AM EST) NA 143 136 - 145 mmol/L 05/18/2024 10:44 AM EST [facility] K 3.9 3.5 - 5.1 mmol/L 05/18/2024 10:44 AM EST [facility] Cl 104 98 - 109 mmol/L 05/18/2024 10:44 AM EST [facility] CO2 29 22 - 32 mmol/L 05/18/2024 10:44 AM EST [facility] BUN 33(H) 8 - 23 mg/dL 05/18/2024 10:44 AM EST [facility] Creatinine 1.70(H) 0.50 - 1.12 mg/dL 05/18/2024 10:44 AM [facility] Glucose 102(H) 60 - 99 mg/dL 05/18/2024 10:44 AM EST [facility] Calcium 9.3 8.4 - 10.4 mg/dL 05/18/2024 10:44 AM EST [facility] Anion Gap 14 >=0 05/18/2024 10:44 AM EST [facility] eGFR 39(L) >=60 mL/min/1. 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
--- OUTSIDE RECORDS SUMMARY | 2024-08-20 13:14 | XMS_ITS | Encounter Summary ---
Author Organization [facility] Address [address] [place] [address] Care Team Providers Care Accounting Professor Name Role Phone Udya Sheehan Primary Care Provider [phone] Encounter Details Date Type Department Care Team (Late st Contact Info) Description 04/26/2024 Lab Requisition [facility] [address] [place] [address] Ross Buchanan MD [address] [place] [address] Acute and chronic respiratory failure with hypoxia [...] of this encounter Procedures * Due to [place] state law, this organization might not be sharing negative HIV tests. Procedure Name Priority Date/Time Associated Diagnosis Comments MAGNESIUM Routine 04/26/2024 10:14 AM EDT Acute and chronic respiratory failure with hypoxia (HCC) No diagnosis COMPREHENSIVE METABOLIC PANEL Routine 04/26/2024 10:14 AM EDT Acute and chronic respiratory failure with hypoxia (HCC) No diagnosis documented in this encounter Results * Due to [place] state law, this organization might not be sharing negative HIV tests. * Magnesium (04/26/2024 10:14 AM EDT) MG 2.2 1.5 - 2.5 mg/dL 04/26/2024 10:52 AM EDT [facility] Blood Structure of peripheral vein / Unknown Venipuncture / Unknown 04/26/2024 10:14 AM EDT 04/26/2024 10:14 AM EDT us Ross Buchanan MD LAB BLOOD ORDERABLES Final R esult [facility] [address] [facility] [address] [place] [address], * (ABNORMAL) Comprehensive Metabolic Panel (04/26/2024 10:14 AM EDT) NA 140 136 - 145 mmol/L 04/26/2024 10:52 AM EDT [facility] K 3.8 3.5 - 5.1 mmol/L 04/26/2024 10:52 AM EDT [facility] Cl 98 98 - 109 mmol/L 04/26/2024 10:52 AM EDT [facility] CO2 34(H) 22 - 32 mmol/L 04/26/2024 10:52 AM EDT [facility] Anion Gap 12 >=0 04/26/2024 10:52 AM EDT [facility] Glucose 94 60 - 99 mg/dL 04/26/2024 10:52 AM EDT [facility] Creatinine 1.50(H) 0.50 - 1.12 mg/dL 04/26/2024 10:52 AM EDT [facility] Calcium 9.3 8.4 - 10.4 mg/dL 04/26/2024 10:52 AM EDT [facility] Total Protein 6.0(L) 6.6 - 8.7 g/dL 04/26/2024 10:52 AM EDT [facility] Albumin 2.9(L) 3.5 - 5.0 g/dL 04/26/2024 10:52 AM T [facility] Bilirubin, Total 0.3 0.2 - 1.2 mg/dL 04/26/2024 10:52 AM EDT [facility] Alkaline Phosphatase 113 40 - 129 U/L 04/26/2024 10:52 AM EDT [facility] AST 44(H) 0 - 40 U/L 04/26/2024 10:52 AM EDT [facility] ALT 40 <=41 U/L 04/26/2024 10:52 AM T [facility] BUN 51(H) 8 - 23 mg/dL 04/[facility] e[facility] 46(L) >=60 mL/min/1. 73m2 04/26/2024 10:52 AM T [facility] Comment:The estimated glomer ular filtration [...] Globulin, Total 3.1 2.1 - 4.2 g/dL 04/26/2024 10:52 AM T [facility] A/G Ratio 0.9(L) 1.5 - 3.0 04/26/2024 10:52 AM [facility] Blood Structure of peripheral vein / Unknown Venipuncture / Unknown 04/26/2024 10:14 AM EDT 04/26/2024 10:14 AM EDT us Ross Buchanan MD LAB BLOOD ORDERABLES Final R esult 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
--- OUTSIDE RECORDS SUMMARY | 2024-08-20 13:14 | XMS_ITS | Encounter Summary ---
Author Organization [facility] Address [address] [place] [address] Care Team Providers Care Biomass Plant Technician Name Role Phone Uday Sheehan MD Primary Care Provider [phone] Encounter Details Date Type Department Care Team (Late st Contact Info) Description 08/09/2024 Lab Requisition [facility] [address] [facility] [place] [address] Tabby Bledsoe MD [address] [address] Bacteremia Social History Tobacco Use Types Packs/Day Years Used Date Smoking Tobacco: Never Assessed Sex and Gender Information Value Date Recorded Sex Assigned at Not on file Legal Sex Male 10:42 AM EST Gender Identity Not on file Sexual Orientation Not on file documented as of this encounter Plan of Treatment Not on file documented as of this encounter Visit Diagnoses Diagnosis Bacteremia documented in this encounter Additional Health Concerns Infection Onset Date Last Indicated Resolved Time ESBL 06/22/2024 06/22/2024 documented as of this encounter Care Teams Biomass Plant Technician Relationship Specialty Start Date End Date Uday Sheehan MD [address] [place] [address] [address] [place], [place] PCP - General Concrete Paver 12/19/16 documented as of this encounter
--- OUTSIDE RECORDS SUMMARY | 2024-08-20 13:15 | XMS_ITS | Encounter Summary ---
Author Organization [facility] Address [address] [place] [address] Care Team Providers Care Time Clock Inspector Name Role Phone Uday Sheehan Primary Care Provider [phone] Encounter Details Date Type Department Care Team (Late st Contact Info) Description 04/22/2024 Lab Requisition [facility] Lab [address] [place] [address] Salo Whyte MD [address] [place] [address] Acute and chronic respiratory failure with hypoxia [...] of this encounter Procedures * Due to [place] state law, this organization might not be sharing negative HIV tests. Procedure Name Priority Date/Time Associated Diagnosis Comments N-TERMINAL PROBRAIN NATRIURETIC PEPTIDE Routine 04/22/2024 9:32 AM EDT Acute and chronic respiratory failure with hypoxia (HCC) No diagnosis CBC AUTO DIFFERENTIAL Routine 04/22/2024 9:32 AM EDT Acute and chronic respiratory failure with hypoxia (HCC) No diagnosis TSH Routine 04/22/2024 9:32 AM EDT Acute and chronic respiratory failure with hypoxia (HCC) No diagnosis T4, FREE Routine 04/22/2024 9:32 AM EDT Acute and chronic respiratory failure with hypoxia (HCC) No diagnosis COMPREHENSIVE METABOLIC PANEL Routine 04/22/2024 9:32 AM EDT Acute and chronic respiratory failure with hypoxia (HCC) No diagnosis documented in this encounter Results * Due to [place] state law, this organization might not be sharing negative HIV tests. * (ABNORMAL) TSH (04/22/2024 9:32 AM EDT) TSH 8.570(H) 0.270 - 4.200 uIU/mL 04/22/2024 10:11 AM EDT [facility] Blood Structure of peripheral vein / Unknown 04/22/2024 9:32 AM EDT 04/22/2024 9:33 AM EDT us Salo Whyte MD LAB BLOOD ORDERABLES Final Result Performing Organization Address City/State/RUST Co de Phone Number [facility] [address] [place] [address] [address] [place] [address], [place] [phone] * T4, Free (04/22/2024 9:32 AM EDT) Free T4 1.25 0.80 - 1.80 ng/dL 04/22/2024 10:11 AM EDT [facility] Comment: Females: (ng/dL) First Trimester [...] Blood Structure of peripheral vein / Unknown 04/22/2024 9:32 AM EDT 04/22/2024 9:33 AM EDT Salo Whyte MD LAB BLOOD ORDERABLES Final Result [facility] [address] [facility] 2[address] [place] [address], [place] [phone] * (ABNORMAL) CBC Auto Differential (04/22/2024 9:32 AM EDT) WBC 5.8 4.8 - 10.8 10*3/uL 04/22/2024 9:53 AM EDT [facility] RBC 2.96(L) 4.70 - 6.10 10*6/uL 04/22/2024 9:53 AM EDT [facility] Hemoglobin 8.2(L) 13.7 - 16.5 g/dL 04/22/2024 9:53 AM EDT [facility] Hematocrit 25.7(L) 40.5 - 48.5 % 04/22/2024 9:53 AM EDT [facility] MCV 86.8 80.0 - 94.0 fL 04/22/2024 9:53 AM EDT [facility] MCH 27.7 26.0 - 34.0 pg 04/22/2024 9:53 AM EDT [facility] MCHC 31.9 31.0 - 36.0 g/dL 04/22/2024 9:53 AM EDT [facility] RDW 16.4(H) 12.0 - 15.0 % 04/22/2024 9:53 AM EDT [facility] RDW Standard Deviation 52.1(H) 35.1 - 43.9 fL 04/22/2024 9:53 AM EDT [facility] Platelets 182 140 - 440 10*3/uL 04/22/2024 9:53 AM EDT [facility] MPV 10.8 9.4 - 12.4 fL 04/22/2024 9:53 AM EDT [facility] Neutrophil % 57.5 50.0 - 75.0 % 04/22/2024 9:53 AM EDT [facility] Immature Grans % 0.2 0.0 - 0.9 % 04/22/2024 9:53 AM EDT [facility] Lymphocyte % 21.1 20.0 - 44.0 % 04/22/2024 9:53 AM EDT [facility] Monocyte % 15.7(H) 0.0 - 14.0 % 04/22/2024 9:53 AM EDT [facility] Eosinophil % 5.0 0.0 - 5.0 % 04/22/2024 9:53 AM EDT [facility] Basophil % 0.5 0.0 - 2.0 % 04/22/2024 9:53 AM EDT [facility] Neutrophil # 3.32 1.80 - 7.70 10*3/uL 04/22/2024 9:53 AM EDT [facility] Immature Grans # <0.03 0.00 - 0.03 10*3/uL 04/22/2024 9:53 AM EDT [facility] Lymphocyte # 1.20 1.00 - 4.75 10*3/uL 04/22/2024 9:53 AM EDT [facility] Monocyte # 0.90 0.00 - 6.00 10*3/uL 04/22/2024 9:53 AM EDT [facility] Eosinophil # 0.30 0.00 - 0.80 10*3/uL 04/22/2024 9:53 AM EDT [facility] Basophil # <0.03 0.00 - 0.20 10*3/uL 04/22/2024 9:53 AM EDT [facility] nRBC % 0.0 0 - 0 /100 WBCs 04/22/2024 9:53 AM EDT [facility] nRBC # <0.01 0.00 - 0.13 10*3/uL 04/22/2024 9:53 AM EDT [facility] Blood Structure of peripheral vein / Unknown 04/22/2024 9:32 AM EDT 04/22/2024 9:33 AM EDT Salo Whyte MD LAB BLOOD ORDERABLES Final Result Performing Organization Address [facility]/[place] Co de Phone Number [facility] [address] [address], [place] [phone] * N-terminal ProBrain Natriuretic Peptide - [facility] & MEM/REJIV/Forrest Only (04/22/2024 9:32 AM EDT) Pro-B-Type Natriuretic Peptide 435 <=1,800 pg/mL 04/22/2024 10:42 AM EDT [facility] Comment: RULE IN CHF >/= 450 pg/mL for patients <50 years old RULE IN CHF >/= 900 pg/mL for patients 50-75 years old RULE IN CHF >/= 1800 pg/mL for patients >75 years old RULE OUT CHF </= 300 pg/mL (not age specific) Blood Structure of peripheral vein / Unknown 04/22/2024 9:32 AM EDT 04/22/2024 9:33 AM EDT Salo Whyte MD LAB BLOOD ORDERABLES Final Result Performing Organization Address [facility]/ZIP Co de Phone Number [facility] [address] [address], [place] [phone] * (ABNORMAL) Comprehensive Metabolic Panel (04/22/2024 9:32 AM EDT) NA 139 136 - 145 mmol/L 04/22/2024 10:11 AM EDT [facility] K 3.9 3.5 - 5.1 mmol/L 04/22/2024 10:11 AM EDT [facility] Cl 96(L) 98 - 109 mmol/L 04/22/2024 10:11 AM EDT [facility] CO2 33(H) 22 - 32 mmol/L 04/22/2024 10:11 AM EDT [facility] Anion Gap 14 >=0 04/22/2024 10:11 AM EDT [facility] Glucose 98 60 - 99 mg/dL 04/22/2024 10:11 AM EDT [facility] Creatinine 1.43(H) 0.50 - 1.12 mg/dL 04/22/2024 10:11 AM EDT [facility] Calcium 9.9 8.4 - 10.4 mg/dL 04/22/2024 10:11 AM T [facility] Total Protein 6.3(L) 6.6 - 8.7 g/dL 04/22/2024 10:11 AM EDT [facility] Albumin 3.0(L) 3.5 - 5.0 g/dL 04/22/2024 10:11 AM [facility] Bilirubin, Total 0.4 0.2 - 1.2 mg/dL 04/22/2024 10:11 AM EDT [facility] Alkaline Phosphatase 106 40 - 129 U/L 04/22/2024 10:[facility] AST 34 0 - 40 U/L 04/22/2024 10:11 AM [facility] ALT 30 <=41 U/L 04/22/2024 10:11 AM EDT [facility] BUN 50(H) 8 - 23 mg/dL 04/22/2024 10:11 AM [facility] eGFR 48(L) >=60 mL/min/1. 73m2 04/22/2024 10:11 AM T [facility] Comment:The estimated glomer ular filtration [...] in Diagnosing Kidney Disease . Globulin, Total 3.3 2.1 - 4.2 g/dL 04/22/2024 10:11 AM EDT [facility] A/G Ratio 0.9(L) 1.5 - 3.0 04/22/2024 10:11 AM EDT [facility] Blood Structure of peripheral vein / Unknown 04/22/2024 9:32 AM EDT 04/22/2024 9:33 AM EDT Salo Whyte MD LAB BLOOD ORDERABLES Final Result Performing Organization Address City/State/[place]UST Co de Phone Number [facility] [address] [facility] [address] [place] [address], documented in this encounter Visit Diagnoses Diagnosis Acute and chronic respiratory failure with hypoxia (HCC) No diagnosis documented in this encounter Additional Health Concerns Infection Onset Date Last Indicated Resolved Time 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
--- OUTSIDE RECORDS SUMMARY | 2024-08-20 13:15 | XMS_ITS | Encounter Summary ---
Author Organization [facility] Address [address] [place] [address] Care Team Providers Care Whipped Topping Supervisor Name Role Phone Uday Sheehan MD Primary Care Provider [phone] Encounter Details Date Type Department Care Team (Late st Contact Info) Description 06/21/[address] [facility] Lab [address] [facility] [place] [address] Zak Zuluaga MD [address] [place] [address] Unspecified kidney failure; COVID-19 Social History Tobacco Use Types Packs/Day Years [...] Associated Diagnosis Comments BASIC METABOLIC PANEL Routine 06/21/2024 6:57 AM EST Unspecified kidney failure COVID-19 documented in this encounter Results * (ABNORMAL) Basic metabolic panel (06/21/2024 6:57 AM EST) Sodium 147(H) 133 - 145 mmol/L LAB CHEMISTRY METHOD 06/21/2024 11:17 AM EST [facility] Potassium 4.3 3.5 - 5.5 mmol/L LAB CHEMISTRY METHOD 06/21/2024 11:17 AM EST [facility] Chloride 114(H) 96 - 110 mmol/L LAB CHEMISTRY METHOD 06/21/2024 11:17 AM [facility] CO2 23 21 - 32 mmol/L LAB CHEMISTRY METHOD 06/21/2024 11:17 AM [facility] Anion Gap 10 3 - 11 LAB CHEMISTRY METHOD 06/21/2024 11:17 AM [facility] Glucose 90 70 - 100 mg/dL LAB CHEMISTRY METHOD 06/21/2024 11:17 AM [facility] BUN 65(H) 5 - 25 mg/dL LAB CHEMISTRY METHOD 06/21/2024 11:17 AM [facility] Creatinine 3.53(H) 0.70 - 1.30 mg/dL LAB CHEMISTRY METHOD 06/21/2024 11:17 AM [facility] eGFR 16(L) >=60 mL/min/1. 73m2 LAB CHEMISTRY METHOD 06/21/2024 11:17 AM [facility] Comment:Calculation based on the??Chronic Kidney Disease Epidemiology Collaboration (CKD-EPI) equation refit??without adjustment for race. BUN/Creatinine Ratio 18.4 LAB CHEMISTRY METHOD 06/21/2024 11:17 AM [facility] Calcium 8.5 8.5 - 10.5 mg/dL LAB CHEMISTRY METHOD 06/21/2024 11:17 AM [facility] Blood Venous blood specimen / Unknown Venipuncture / Unknown 06/21/2024 6:57 AM EST 06/21/2024 9:08 AM EST us Zak Zuluaga MD LAB BLOOD ORDERABLES Final Resul t [facility] [address] [place] [address], documented in this encounter Visit Diagnoses Diagnosis Unspecified kidney failure COVID-19 documented in this encounter Additional Health Concerns Infection Onset Date Last Indicated Resolved Time ESBL 06/22/2024 06/22/2024 documented as of this encounter Care Teams Whipped Topping Supervisor Relationship Specialty Start Date End Date Uday Sheehan MD [address] [facility] [address] Donna [place] PCP - General [place] 12/19/16 documented as of this encounter
--- OUTSIDE RECORDS SUMMARY | 2024-08-20 13:15 | XMS_ITS | Encounter Summary ---
Author Organization [facility] Address [address] [place] [address] Care Team Providers Care Gas Operation Manager Name Role Phone Uday Sheehan MD Primary Care Provider [phone] Encounter Details Date Type Department Care Team (Late st Contact Info) Description 07/12/2024 Lab Requisition [facility] - [facility] Lab [address] [facility] [place] [address] Tabby Bledsoe MD [address] [address] Bacteremia Social History Tobacco Use Types Packs/Day [...] documented as of this encounter Care Teams Gas Operation Manager Relationship Specialty Start Date End Date Uday Sheehan MD [address] [place] [address] [address] [place], [place] PCP - General Industrial Tractor Driver 12/19/16 documented as of this encounter
--- OUTSIDE RECORDS SUMMARY | 2024-08-20 13:15 | XMS_ITS | Encounter Summary ---
Author Organization [facility] Address [address] [place] [address] Care Team Providers Care Insurance Inspector Name Role Phone Uday Sheehan Primary Care Provider [phone] Encounter Details Date Type Department Care Team (Late st Contact Info) Description 05/21/2024 Orders Only [facility] Interventional Radiology [address] [place] [address] Cedric Blank MD [address] [place] [address] Social History Tobacco Use Types Packs/Day Years [...] Diagnoses Not on filedocumented in this encounter Additional Health Concerns Infection Onset Date Last Indicated Resolved Time Multidrug resistant organisms MRSA 03/25/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
--- OUTSIDE RECORDS SUMMARY | 2024-08-20 13:15 | XMS_ITS | Encounter Summary ---
Author Organization [facility] Address [address] [place] [address] Care Team Providers Care Worm Raiser Name Role Phone Uday Sheehan Primary Care Provider [phone] Encounter Details Date Type Department Care Team (Late st Contact Info) Description 03/27/2024 Lab Requisition [facility] [address] [place] [address] Lidia Barry, CB [address] [place] [address] Acute and chronic respiratory failure with hypoxia [...] of this encounter Procedures * Due to [place] state law, this organization might not be sharing negative HIV tests. Procedure Name Priority Date/Time Associated Diagnosis Comments CBC AUTO DIFFERENTIAL Routine 03/27/2024 8:19 AM EDT Acute and chronic respiratory failure with hypoxia (HCC) No diagnosis MANUAL DIFFERENTIAL Routine 03/27/2024 8 :19 AM EDT Acute and chronic respiratory failure with hypoxia (HCC) No diagnosis COMPREHENSIVE METABOLIC PANEL Routine 03/27/2024 8:19 AM EDT Acute and chronic respiratory failure with hypoxia (HCC) No diagnosis documented in this encounter Results * Due to [place] state law, this organization might not be sharing negative HIV tests. * (ABNORMAL) Manual Differential (03/27/2024 8:19 AM EDT) Neutrophil %, Manual 53 50 - 75 % 03/27/2024 9:04 AM EDT [facility] Lymphocyte %, Manual 33 33 - 54 % 03/27/2024 9:04 AM EDT [facility] Monocyte %, Manual 10 0 - 14 % 03/27/2024 9:04 AM EDT [facility] Eosinophil %, Manual 3 0 - 5 % 03/27/2024 9:04 AM EDT [facility] Basophil %, Manual 0 0 - 2 % 03/27/2024 9:04 AM EDT [facility] Plasma Cells % 1(H) 0 % 03/27/2024 9:04 AM EDT [facility] Total Neutrophil #, Manual 4.13 1.80 - 7.70 10*3/uL 03/27/2024 9:04 AM EDT [facility] Total Lymph #, Manual 2.57 1.00 - 4.75 10*3/uL 03/27/2024 9:04 AM EDT [facility] Monocyte #, Manual 0.78 0.00 - 6.00 10*3/uL 03/27/2024 9:04 AM EDT [facility] Eosinophil #, Manual 0.23 0.00 - 0.80 10*3/uL 03/27/2024 9:04 AM EDT [facility] Basophil #, Manual 0.00 0.00 - 0.20 10*3/uL 03/27/2024 9:04 AM EDT [facility] Plasma Cell # 0.08(H) 0.00 10*3/uL 9:04 AM EDT [facility] Platelet Estimate Adequate Adequate 03/27/2024 9:04 AM EDT [facility] Clumped Platelets Present(A) Not Present 03/27/2024 9:04 AM EDT [facility] RBC Morphology Present(A) Normal, No clinically significant RBC morphology present (ICSH guidelines, 2015). 03/27/2024 9:04 AM EDT [facility] Polychromasia 1+(A) Not Present 03/27/2024 9:04 AM EDT [facility] Ovalocytes 1+(A) Not Present 03/27/2024 9:04 AM EDT [facility] [place] Cells 1+(A) Not Present 03/27/2024 9:04 AM EDT [facility] Total Cells Counted 116 03/27/2024 9:04 AM EDT [facility] Blood Structure of peripheral vein / Unknown Venipuncture / Unknown 03/27/2024 8:19 AM EDT 03/27/2024 8:19 AM EDT us Lidia Barry CONSTRUCTION TRENCH DIGGER LAB BLOOD ORDERABLES Final R esult Performing Organization Address City/State/[facility] Co de Phone Number [facility] [address] [place] [address] [address] [place] [address], * (ABNORMAL) CBC Auto Differential (03/27/2024 8:19 AM EDT) WBC 7.8 4.8 - 10.8 10*3/uL 03/27/2024 9:04 AM EDT [facility] RBC 3.02(L) 4.70 - 6.10 10*6/uL 03/27/2024 9:04 AM EDT [facility] Hemoglobin 8.4(L) 13.7 - 16.5 g/dL 03/27/2024 9:04 AM EDT [facility] Hematocrit 25.7(L) 40.5 - 48.5 % 03/27/2024 9:04 AM EDT [facility] MCV 85.1 80.0 - 94.0 fL 03/27/2024 9:04 AM EDT [facility] Comment:REVIEWED MCH 27.8 26.0 - 34.0 pg 03/27/2024 9:04 AM EDT [facility] MCHC 32.7 31.0 - 36.0 g/dL 03/27/2024 9:04 AM EDT [facility] RDW 16.2(H) 12.0 - 15.0 % 03/27/2024 9:04 AM EDT [facility] RDW Standard Deviation 48.9(H) 35.1 - 43.9 fL 03/27/2024 9:04 AM EDT [facility] Platelets 192 140 - 440 10*3/uL 03/27/2024 9:04 AM EDT [facility] MPV 10.5 9.4 - 12.4 fL 03/27/2024 9:04 AM EDT [facility] nRBC % 0.0 0 - 0 /100 WBCs 03/27/2024 9:04 AM EDT [facility] nRBC # <0.01 0.00 - 0.13 10*3/uL 03/27/2024 9:04 AM EDT [facility] Blood Structure of peripheral vein / Unknown Venipuncture / Unknown 03/27/2024 8:19 AM EDT 03/27/2024 8:19 AM EDT us Lidia Barry CONSTRUCTION TRENCH DIGGER LAB BLOOD ORDERABLES Final R esult [facility] [address] [place] [address], * (ABNORMAL) Comprehensive Metabolic Panel (03/27/2024 8:19 AM EDT) NA 139 136 - 145 mmol/L 03/27/2024 9:02 AM EDT [facility] K 03/27/2024 9:02 AM EDT [facility] Comment:Unable to result due to Hemolysis Cl 99 98 - 109 mmol/L 03/27/2024 9:02 AM EDT [facility] CO2 32 23 - 32 mmol/L 03/27/2024 9:02 AM EDT [facility] Anion Gap 03/27/2024 9:02 AM EDT [facility] Comment:Unable to result due to Hemolysis Glucose 121(H) 60 - 99 mg/dL 03/27/2024 9:02 AM EDT [facility] Creatinine 0.88 0.50 - 1.12 mg/dL 03/27/2024 9:02 AM EDT [facility] Calcium 8.8 8.4 - 10.4 mg/dL 03/27/2024 9:02 AM [facility] Total Protein 6.6 6.6 - 8.7 g/dL 03/27/2024 [facility] Albumin 2.8(L) 3.5 - 5.0 g/dL 03/27/2024 9:02 AM [facility] Bilirubin, Total 0.4 0.2 - 1.2 mg/dL 03/27/2024 9:02 [facility] Alkaline Phosphatase 89 40 - 129 U/L 03/27/2024 9:02 [facility] AST 03/27/2024 9:02 [facility] Comment:Unable to result due to Hemolysis ALT 03/27/2024 9:02 AM [facility] Comment:Unable to result due to Hemolysis BUN 17 8 - 23 mg/dL 03/27/2024 9:02 [facility] eGFR 85 >=60 mL/min/1. 73m2 03/27/2024 9:02 AM [facility] Comment:The estimated glomer ular filtration [...] in Diagnosing Kidney Disease . Globulin, Total 3.8 2.1 - 4.2 g/dL 03/27/2024 9:02 AM EDT [facility] A/G Ratio 0.7(L) 1.5 - 3.0 03/27/2024 9:02 AM EDT [facility] Blood Structure of peripheral vein / Unknown Venipuncture / Unknown 03/27/2024 8:19 AM EDT 03/27/2024 8:19 AM EDT us Lidia Barry CONSTRUCTION TRENCH DIGGER LAB BLOOD ORDERABLES Final R esult [facility] [address] [place] [address], [place] [phone] documented in this encounter Visit Diagnoses Diagnosis Acute and chronic respiratory failure with hypoxia (HCC) No diagnosis documented in this encounter Additional Health Concerns Infection Onset Date Last Indicated Resolved Time Multidrug resistant organisms MRSA 03/25/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
--- OUTSIDE RECORDS SUMMARY | 2024-08-20 13:15 | XMS_ITS | Encounter Summary ---
Author Organization [facility] Address [address] [place] [address] Care Team Providers Care Dump Motorman Name Role Phone Uday Sheehan Primary Care Provider [phone] Encounter Details Date Type Department Care Team (Late st Contact Info) Description 03/23/2024 Lab Requisition [facility] Lab [address] [place] [address] Valarie Pierson MD [address] [place] [address] Acute and chronic respiratory failure with hypoxia [...] of this encounter Procedures * Due to [place] [employer] law, this organization might not be sharing negative HIV tests. Procedure Name Priority Date/Time Associated Diagnosis Comments VANCOMYCIN, TROUGH Routine 03/23/2024 5: 30 AM EDT Acute and chronic respiratory failure with hypoxia (HCC) No diagnosis documented in this encounter Results * Due to [place] [employer] law, this organization might not be sharing negative HIV tests. * Vancomycin, Trough (03/23/2024 5:30 AM EDT) Vancomycin Trough 15.6 10.0 - 20.0 ug/mL 03/23/2024 11:45 AM EDT [facility] Blood Structure of peripheral vein / Unknown Venipuncture / Unknown 03/23/2024 5:30 AM EDT 03/23/2024 9:17 AM EDT us Valarie Pierson MD LAB BLOOD ORDERABLES Final Res ult [facility] [address] [place] [address], documented in this encounter Visit Diagnoses Diagnosis [...] documented as of this encounter Care Teams Dump Motorman Relationship Specialty Start Date End Date Uday Sheehan [address] [place] [address] [place] [address] PCP - General Internal Medicine 03/27/24 documented as of this encounter
--- OUTSIDE RECORDS SUMMARY | 2024-08-20 13:15 | XMS_ITS | Encounter Summary ---
Author Organization [facility] Address [address] [place] [address] Care Team Providers Care Branch Employment Coordinator Name Role Phone Udya Sheehan MD Primary Care Provider [phone] Encounter Details Date Type Department Care Team (Late st Contact Info) Description 07/11/[address] [facility] [address] [facility] [place] [address] Tabby Bledsoe MD [address] [id number] Acute kidney failure, unspecified (CMS/HCC) Social History Tobacco Use Types Packs/Day Years [...] Associated Diagnosis Comments COMPLETE BLOOD COUNT Routine 07/11/2024 5:17 AM EST Acute kidney failure, unspecified (CMS/HCC) COMPREHENSIVE METABOLIC PANEL Routine 07/11/2024 5:17 AM EST Acute kidney failure, unspecified (CMS/HCC) documented in this encounter Results * (ABNORMAL) Comprehensive metabolic panel (07/11/2024 5:17 AM EST) Sodium 147(H) 133 - 145 mmol/L LAB CHEMISTRY METHOD 07/11/2024 11:14 AM EST [facility] Potassium 4.1 3.5 - 5.5 mmol/L LAB CHEMISTRY METHOD 07/11/2024 11:14 AM [facility] Chloride 113(H) 96 - 110 mmol/L LAB CHEMISTRY METHOD 07/11/2024 11:14 AM [facility] CO2 31 21 - 32 mmol/L LAB CHEMISTRY METHOD 07/11/2024 11:14 AM [facility] Anion Gap 3 3 - 11 LAB CHEMISTRY METHOD 07/11/2024 11:14 AM [facility] Glucose 100 70 - 100 mg/dL LAB CHEMISTRY METHOD 07/11/2024 11:14 AM [facility] BUN 29(H) 5 - 25 mg/dL LAB CHEMISTRY METHOD 07/11/2024 11:14 AM [facility] Creatinine 1.31(H) 0.70 - 1.30 mg/dL LAB CHEMISTRY METHOD 07/11/2024 11:14 AM [facility] eGFR 54(L) >=60 mL/min/1. 73m2 LAB CHEMISTRY METHOD 07/11/2024 11:14 AM [facility] Comment:Calculation based on the??Chronic Kidney Disease Epidemiology Collaboration (CKD-EPI) equation refit??without adjustment for race. BUN/Creatinine Ratio 22.1 LAB CHEMISTRY METHOD 07/11/2024 11:14 AM [facility] Calcium 10.3 8.5 - 10.5 mg/dL LAB CHEMISTRY METHOD 07/11/2024 11:14 AM [facility] AST (SGOT) 36 10 - 42 unit/L LAB CHEMISTRY METHOD 07/11/2024 11:14 AM [facility] ALT (SGPT) 23 10 - 60 unit/L LAB CHEMISTRY METHOD 07/11/2024 11:14 AM [facility] Alkaline Phosphatase 127(H) 42 - 121 unit/L LAB CHEMISTRY METHOD 07/11/2024 11:14 AM [facility] Total Protein 5.8(L) 6.0 - 8.0 g/dL LAB CHEMISTRY METHOD 07/11/2024 11:14 AM [facility] Albumin 1.6(L) 3.2 - 5.0 g/dL LAB CHEMISTRY METHOD 07/11/2024 11:14 AM [facility] Total Bilirubin 0.4 0.0 - 1.4 mg/dL LAB CHEMISTRY METHOD 07/11/2024 11:14 AM [facility] Blood Venous blood specimen / Unknown Venipuncture / Unknown 07/11/2024 5:17 AM EST 07/11/2024 10:02 AM EST us Tabby Bledsoe MD LAB BLOOD ORDERABLES Fin al Result [facility] [address] [place] [address], * (ABNORMAL) Complete blood count (07/11/2024 5:17 AM EST) WBC 6.4 4.8 - 10.8 K/mcL LAB HEMETOLOGY METHOD 07/11/2024 10:30 AM [facility] RBC 2.80(L) 4.50 - 5.50 M/mcL LAB HEMETOLOGY METHOD 07/11/2024 10:30 AM [facility] Hemoglobin 7.3(L) 13.5 - 17.5 g/dL LAB HEMETOLOGY METHOD 07/11/2024 10:30 AM [facility] Hematocrit 24.5(L) 42.0 - 54.0 % LAB HEMETOLOGY METHOD 07/11/2024 10:30 AM [facility] MCV 87.8 79.0 - 98.0 FL LAB HEMETOLOGY METHOD 07/11/2024 10:30 AM [facility] MCH 26.2(L) 27.0 - 32.0 pcg LAB HEMETOLOGY METHOD 07/11/2024 10:30 AM EST [facility] MCHC 29.8(L) 32.0 - 37.0 g/dL LAB HEMETOLOGY METHOD 07/11/2024 10:30 AM [facility] RDW 19.2(H) 11.0 - 15.0 % LAB HEMETOLOGY METHOD 07/11/2024 10:30 AM EST [facility] Platelets 210 130 - 400 K/mcL LAB HEMETOLOGY METHOD 07/11/2024 10:30 AM EST [facility] MPV 10.2 7.0 - 11.0 FL LAB HEMETOLOGY METHOD 07/11/2024 10:30 AM EST [facility] NRBC 0.0 <1.0 % LAB HEMETOLOGY METHOD 07/11/2024 10:30 AM [facility] NRBC Absolute 0.00 <0.10 K/mcL LAB HEMETOLOGY METHOD 07/11/2024 10:30 AM [facility] Blood Venous blood specimen / Unknown Venipuncture / Unknown 07/11/2024 5:17 AM EST 07/11/2024 10:02 AM EST us Tabby Bledsoe MD LAB BLOOD ORDERABLES Fin al Result [facility] [address] [place] [address], documented in this encounter Visit Diagnoses Diagnosis Acute kidney failure, unspecified (CMS/HCC) Acute kidney failure, unspecified documented in this encounter Additional Health Concerns Infection Onset Date Last Indicated Resolved Time ESBL 06/22/2024 06/22/2024 documented as of this encounter Care Teams Branch Employment Coordinator Relationship Specialty Start Date End Date Uday Sheehan MD [address] [place] [address] Dr Aliciayogilson [place] PCP - General Dam Worker 12/19/16 documented as of this encounter
--- OUTSIDE RECORDS SUMMARY | 2024-08-20 13:15 | XMS_ITS | Encounter Summary ---
Author Organization [facility] Address [address] [place] [address] Care Team Providers Care Orthotics Prosthetics Assistant Name Role Phone Uday Sheehan MD Primary Care Provider [phone] Encounter Details Date Type Department Care Team (Late st Contact Info) Description 06/12/2024 Lab Requisition [facility] Lab [address] [place] [id number] Pearl Garcia MD [address] [place] [address] Abnormal results of liver function studies; Hypothyroidism, unspecified Social History Tobacco Use Types Packs/Day Years [...] Procedure Name Priority Date/Time Associated Diagnosis Comments TRIIODOTHYRONINE FREE Routine 06/12/2024 9:20 AM EST Hypothyroidism, unspecified Abnormal results of liver function studies ALANINE AMINOTRANSFERASE Routine 9:20 AM EST Hypothyroidism, unspecified Abnormal results of liver function studies ASPARTATE AMINOTRANSFERASE Routine 06/12/2024 9:20 AM EST Hypothyroidism, unspecified Abnormal results of liver function studies THYROID STIMULATING HORMONE Routine 06/12/2024 9:20 AM EST Hypothyroidism, unspecified Abnormal results of liver function studies THYROXINE FREE Routine 06/12/2024 9:20 AM EST Hypothyroidism, unspecified Abnormal results of liver function studies documented in this encounter Results * Thyroxine free (06/12/2024 9:20 AM EST) Free T4 1.02 0.70 - 1.80 ng/dL LAB CHEMISTRY METHOD 06/12/2024 12:15 PM EST [facility] Blood Venous blood specimen / Unknown Venipuncture / Unknown 06/12/2024 9:20 AM EST 06/12/2024 11:19 AM EST us Pearl Garcia MD LAB BLOOD ORDERABLES Final Resul t Performing Organization Address City/[facility]/ZIP Co de Phone Number [facility] [address] [place] [address], [place] [phone] * (ABNORMAL) Triiodothyronine free (06/12/2024 9:20 AM EST) T3, Free 148(L) 230 - 420 pcg/dL LAB CHEMISTRY METHOD 06/12/2024 12:15 PM EST [facility] Blood Venous blood specimen / Unknown Venipuncture / Unknown 06/12/2024 9:20 AM EST 06/12/2024 11:19 AM EST us Pearl Garcia MD LAB BLOOD ORDERABLES Final Resul t [facility] [address] [place] [address], [place] [phone] * (ABNORMAL) Thyroid stimulating hormone (06/12/2024 9:20 AM EST) TSH 4.91(H) 0.40 - 4.00 mcIU/mL LAB CHEMISTRY METHOD 06/12/2024 12:15 PM EST [facility] Blood Venous blood specimen / Unknown Venipuncture / Unknown 06/12/2024 9:20 AM EST 06/12/2024 11:19 AM EST us Pearl Garcia MD LAB BLOOD ORDERABLES Final Resul t Performing Organization Address [facility] de Phone Number [facility] [address] [place] [address], [place] [phone] * (ABNORMAL) Alanine aminotransferase (06/12/2024 9:20 AM EST) ALT (SGPT) 127(H) 10 - 60 unit/L LAB CHEMISTRY METHOD 06/12/2024 12:03 PM EST [facility] Blood Venous blood specimen / Unknown Venipuncture / Unknown 06/12/2024 9:20 AM EST 06/12/2024 11:19 AM EST us Pearl Garcia MD LAB BLOOD ORDERABLES Final Resul t Performing Organization Address [facility] de Phone Number [facility] [address] [place] [address], [place] [phone] * (ABNORMAL) Aspartate aminotransferase (06/12/2024 9:20 AM EST) AST (SGOT) 185(H) 10 - 42 unit/L LAB CHEMISTRY METHOD 06/12/2024 12:04 PM EST [facility] Blood Venous blood specimen / Unknown Venipuncture / Unknown 06/12/2024 9:20 AM EST 06/12/2024 11:19 AM EST us Pearl Garcia MD LAB BLOOD ORDERABLES Final Resul t Performing Organization Address [facility] Co de Phone Number [facility] [address] [place] [address], [place] [phone] documented in this encounter Visit Diagnoses Diagnosis Abnormal results of liver function studies Nonspecific abnormal results of liver function study Hypothyroidism, unspecified documented in this encounter Additional Health Concerns Infection Onset Date Last Indicated Resolved Time ESBL 06/22/2024 06/22/2024 documented as of this encounter Care Teams Orthotics Prosthetics Assistant Relationship Specialty Start Date End Date Uday Sheehan MD [address] [place] [address] Dr Donna [place] PCP - General Production Control Specialist 12/19/16 documented as of this encounter
--- OUTSIDE RECORDS SUMMARY | 2024-08-20 13:15 | XMS_ITS ---
Author Organization [facility] [place] Address Unknown Allergies, Adverse Reactions, Alerts Substance Reaction Status Noted Date Resolved Date Procaine active 05/31/2024 Ibuprofen active 05/31/2024 HYDROmorphone active 05/31/2024 Medications Medication Dose Frequency Directions Start Date End Kevin e Milk of Magnesia Suspension 400 MG/5ML 30 mL Give 30 ml by mout h as needed for Constipation give at bedtime if no BM in 3 days 05/31/2024 Saline Laxative Enema 1 {Dose} Insert 1 dose rectally as needed for Constipation if no result from Dulcolax within 2 hours. If no results from Saline laxative enema, call MD/advanced practice provider (NANCY) for further orders. 05/31/2024 Dulcolax Suppository 10 MG 1 Insert 1 suppository rectally as needed for Constipation if no result from MOM by next shift 05/31/2024 AmLODIPine Besylate Tablet 10 MG 1 {tbl} 24 h Give 1 tablet by anjelica th one time a day for hold for SPB < 90 06/01/2024 Ascorbic Acid Tablet 500 MG 1 {tbl} 12 h Give 1 tablet by anjelica th two times a day for supplement 05/31/2024 Amiodarone HCl Tablet 200 MG 1 {tbl} 24 h Give 1 tablet by anjelica th one time a day for abnormal heart rhythm 06/01/2024 Levothyroxine Sodium Tablet 100 MCG 1 {tbl} 24 h Give 1 tablet by anjelica th one time a day for low thyroid hormone 06/01/2024 MiraLax Oral Powder 17 GM/SCOOP 1 24 h Give 1 scoop by mout h one time a day for hold for loose stools 06/01/2024 Colace Capsule 100 MG 1 {Capsule} 12 h Give 1 capsule by mouth two times a day for Constipation 05/31/2024 Famotidine Tablet 20 MG 1 {tbl} Give 1 tablet by anjelica th at bedtime for gastric ulcer 06/01/2024 Ferrous Sulfate Tablet 325 (65 Fe) MG 1 {tbl} 12 h Give 1 tablet by m outh two times a day for supplementation 05/31/2024 Lactobacillus Capsule 1 {Capsule} 12 h Give 1 capsule by mouth two times a day for supplement 05/31/2024 Melatonin Oral Tablet 5 MG 2 {tbl} Give 2 tablet by anjelica th at bedtime for sleep aid 06/01/2024 Multiple Vitamins-Minerals Tablet 1 {tbl} 24 h Give 1 tablet by anjelica th one time a day for Supplement 06/01/2024 Sennosides Tablet 8.6 MG 2 {tbl} Give 2 tablet by anjelica th at bedtime for constipation 06/01/2024 QUEtiapine Fumarate Tablet 25 MG 1 {tbl} Give 1 tablet by anjelica th at bedtime for sleep aid 06/01/2024 Vitamin B-1 Oral Tablet 100 mg 24 h Give 100 mg by mouth one time a day for supplement 06/01/2024 Albuterol Sulfate Nebulization Solution (2.5 MG/3ML) 0.083% 3 mL 3 ml inhale orally v ia nebulizer every 4 hours as needed for Shortness of Breath/wheezing Evaluate Pre treatment evaluation in supplemental documentation. In progress note document response to instructions and education and any adverse reactions. Notify the provider of any adverse reactions. 05/31/2024 Tylenol Oral Tablet 325 MG 3 {tbl} Give 3 tablet by anjelica th every 8 hours as needed for fever 06/01/2024 Tylenol Oral Tablet 325 MG 3 {tbl} Give 3 tablet by anjelica th every 8 hours as needed for pain 06/01/2024 Eliquis Oral Tablet 5 MG 0.5 {tbl} 12 h Give 0.5 tablet by mouth two times a day for anti coaq 06/01/2024 Artificial Tears Ophthalmic Solution 1.4 % 1 [drp] Instill 1 drop in dwight th eyes every 6 hours as needed for dry eyes 06/01/2024 Lidoderm Patch 5 % Apply to L shoulder topically in the morning for pain at bedtime remove 06/06/2024 Phytoplex Z-Guard Paste 57-17 % Apply to Sacrococcygeal topically every day shift for skin integrity Stage 2 Pressure Ulcer: Cleanse with NS, pat dry, apply zinc to wound bed, cover with foam dressing. 06/14/2024 Phytoplex Z-Guard Paste 57-17 % Apply to Sacrococcygeal topically as needed for skin integrity Stage 2 Pressure Ulcer: Cleanse with NS, pat dry, apply zinc to wound bed, cover with foam dressing. 06/13/2024 Gabapentin Capsule 100 MG 1 {Capsule} 12 h Give 1 capsule by mouth two times a day for pain 06/13/2024 Medications Administered Medication Dose Frequency Status Start Date End Date Milk of Magnesia Suspension 400 MG/5ML 30 mL 05/31/2024 Saline Laxative Enema 1 {Dose} 05/31/20 Dulcolax Suppository 10 MG 1 AmLODIPine Besylate Tablet 1 0 MG 1 {tbl} 24 h Hospitalized 07/01/2024 Ascorbic Acid Tablet 500 MG 1 {tbl} 12 h Hospitalized 07/01/2024 Amiodarone HCl Tablet 200 MG 1 {tbl} 24 h Hospitalize d 07/01/2024 Levothyroxine Sodium Tablet 100 MCG 1 {tbl} 24 h Hospitalized 07/01/2024 MiraLax Oral Powder 17 GM/SCOOP 1 24 h Hospitalized 07/01/2024 Colace Capsule 100 MG 1 {Capsule} 12 h Hospitalized Famotidine Tablet 20 MG 1 {tbl} Hospitalized Ferrous Sulfate Tablet 325 ( 65 Fe) MG 1 {tbl} 12 h Hospitalized 07/01/2024 Lactobacillus Capsule 1 {Capsule} 12 h Hospitalized Melatonin Oral Tablet 5 MG 2 {tbl} Hospitalized 06/29/2024 Multiple Vitamins-Minerals Tablet 1 {tbl} 24 h Hospitalized 07/01/2024 Sennosides Tablet 8.6 MG 2 {tbl} Hospitalized QUEtiapine Fumarate Tablet 2 5 MG 1 {tbl} Hospitalized 06/29/2024 Vitamin B-1 Oral Tablet 100 mg 24 h Hospitalized Albuterol Sulfate Nebulizati on Solution (2.5 MG/3ML) 0.083% 3 mL 05/31/2024 Tylenol Oral Tablet 325 MG 3 {tbl} Tylenol Oral Tablet 325 MG 3 {tbl} Eliquis Oral Tablet 5 MG 0.5 {tbl} 12 h Hospitalized Artificial Tears Ophthalmic Solution 1.4 % 1 [drp] 06/01/2024 Lidoderm Patch 5 % Hospitalized 07/01/20 Phytoplex Z-Guard Paste 57-1 7 % Hospitalized 07/01/2024 Phytoplex Z-Guard Paste 57-1 7 % 06/13/2024 Gabapentin Capsule 100 MG 1 {Capsule} 12 h Hospitalized 07/01/2024 Problems Problem Status Start Date End Date CHRONIC RESPIRATORY FAILURE WITH HYPOXIA (Primary) (J96.11 - ICD-10-CM) ACTIVE 05/31/2024 DYSPHAGIA, UNSPECIFIED (R13.10 - ICD-10-CM) ACTIVE 05/31/2024 CHRONIC KIDNEY DISEASE, STAG E 3 UNSPECIFIED (N18.30 - ICD-10-CM) ACTIVE 05/31/2024 COVID-19 (U07.1 - ICD-10-CM) ACTIVE 06/18/2024 CHRONIC SYSTOLIC (CONGESTIVE ) HEART FAILURE (I50.22 - ICD-10-CM) ACTIVE 05/31/2024 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 05/31/2024 IRON DEFICIENCY ANEMIA, UNSPECIFIED (D50.9 - ICD-10-CM ) ACTIVE 05/31/2024 UNSTEADINESS ON FEET (R26.81 - ICD-10-CM) ACTIVE 06/02/2024 MUSCLE WEAKNESS (GENERALIZED) (M62.81 - ICD-10-CM) ACT JAY 06/02/2024 PAROXYSMAL ATRIAL FIBRILLATION (I48.0 - ICD-10-CM) ACT JAY 05/31/2024 ESSENTIAL (PRIMARY) HYPERTENSION (I10 - ICD-10-CM) ACT JAY 05/31/2024 GASTRO-ESOPHAGEAL REFLUX DIS EASE WITHOUT ESOPHAGITIS (K21.9 - ICD-10-CM) ACTIVE 05/31/2024 HYPOTHYROIDISM, UNSPECIFIED (E03.9 - ICD-10-CM) ACTIVE 05/31/2024 HYPERLIPIDEMIA, UNSPECIFIED (E78.5 - ICD-10-CM) ACTIVE 05/31/2024 Results * ABDOMEN ULTRASOUND-COMPLETE Performed by: [employer] Component Value Range Date ABDOMEN ULTRASOUND-COMPLETE ABDOMEN ULTRASOUND-COMPLETESee NoteFINDINGS: The visualized liver is unremarkable. The main portal vein is patent with normal directional flow. The common bile duct measures 0.6 cm. The gallbladder surgically absent. The right kidney measures 11.5 cm. The spleen measures up to 16.4 cm. The left kidney measures 12.8 cm. Mild to moderate hydronephrosis is noted. Color Doppler showed no abnormal vascular flow.CONCLUSION: 1. Left hydronephrosis. The cause is not identified on the study. A CT scan should be considered to assess for obstructing abnormality. 2. Splenomegaly.ELECTRONICALLY SIGNED BY CORA CHOU M.D. 06/14/2024 1:13:09 PM EST.Reason for Study: K75.89 OTHER SPECIFIED INFLAMMATORY LIVER DISEASESPrincipal Result Culvert Installer: CORA CHOU ([id number])Housekeeper Cleaning Cooking: SALAS MORALES (NMOLDOVAN)Skydiving Instructor Housekeeper Cleaning Cooking: ALL 06/14/2024 01:13 pm EST * XRAY CHEST 1 VIEW Performed by: [employer] Component Value Range Date XRAY CHEST 1 VIEW XRAY CHEST 1 VIEWSee NoteFINDINGS: Lungs: No focal consolidation. Pulmonary vasculature is within normal limits. Prominent lung markings. Pleura: No pneumothorax. No pleural effusion. Heart and Mediastinum: The cardiomediastinal silhouette is enlarged in size and contour.CONCLUSION: No acute cardiopulmonary process.ELECTRONICALLY SIGNED BY ERICA JACOBO M.D. 06/13/2024 1:28:08 PM EST.Reason for Study: R05.9 COUGH, UNSPECIFIEDPrincipal Result Culvert Installer: ERICA JACOBO ([id number])Housekeeper Cleaning Cooking: NATHALY FOSTER (DCONDON)Skydiving Instructor Housekeeper Cleaning Cooking: ALL 06/13/2024 01:28 pm EST Encounters Encounter Performer Performer Role Encounter Diagnoses Location Date Leave - [facility] on 05/31/2024 03:54 pm EST - 06/10/2024 09:00 am EST Discharge - Discharged / Transferred to another hospital - [facility] on 06/10/2024 08:18 pm EST - 06/26/2024 11:50 pm EST Reason For Referral Abnormal Hemoglobin or Hematocrit (low) Advance Directives Directive Description Verification FULL CODE Cardiopulmonary Resuscitation Immunizations Vaccine Date TB 1 Step Mantoux (PPD) 06/14/2024 01:33 pm EST COVID-19 Vaccine Additional Dose/Booster Influenza FLUAD Trivalent CVX 168 Pneumococcal conjugate PCV20 [id number] Social History Vital Signs Vital Sign Reading Time Taken systolicValue 106 mm[Hg] 06/26/2024 09:49 am EST diastolicValue 64 mm[Hg] 06/26/2024 09:49 am EST systolicValue 115 mm[Hg] 06/25/2024 01:19 pm EST diastolicValue 53 mm[Hg] 06/25/2024 01:19 pm EST systolicValue 115 mm[Hg] 06/25/2024 01:18 pm EST diastolicValue 53 mm[Hg] 06/25/2024 01:18 pm EST systolicValue 115 mm[Hg] 06/25/2024 06:01 am EST diastolicValue 53 mm[Hg] 06/25/2024 06:01 am EST systolicValue 115 mm[Hg] 06/25/2024 05:55 am EST diastolicValue 53 mm[Hg] 06/25/2024 05:55 am EST systolicValue 138 mm[Hg] 06/24/2024 11:15 pm EST diastolicValue 68 mm[Hg] 06/24/2024 11:15 pm EST systolicValue 124 mm[Hg] 06/24/2024 10:07 am EST diastolicValue 61 mm[Hg] 06/24/2024 10:07 am EST systolicValue 110 mm[Hg] 06/23/2024 08:28 am EST diastolicValue 55 mm[Hg] 06/23/2024 08:28 am EST painLevel 0 {score} 06/25/2024 08:53 pm EST painLevel 0 {score} 06/25/2024 05:55 am EST painLevel 0 {score} 06/25/2024 12:54 am EST painLevel 0 {score} 06/24/2024 11:15 pm EST painLevel 0 {score} 06/24/2024 06:45 pm EST painLevel 0 {score} 06/24/2024 02:42 am EST painLevel 0 {score} 06/24/2024 01:26 am EST painLevel 0 {score} 06/23/2024 12:12 pm EST painLevel 0 {score} 06/23/2024 05:55 am EST painLevel 0 {score} 06/22/2024 11:38 pm EST oxygenSaturation 94 % 06/25/2024 01:1 9 pm EST oxygenSaturation 94 % 06/25/2024 01:1 8 pm EST oxygenSaturation 96 % 06/25/2024 06:0 1 am EST oxygenSaturation 96 % 06/25/2024 05:5 5 am EST oxygenSaturation 92 % 06/24/2024 11:1 5 pm EST oxygenSaturation 97 % 06/24/2024 01:2 2 pm EST oxygenSaturation 96 % 06/23/2024 08:2 8 am EST heartrate 91 /min 06/25/2024 01:19 pm EST heartrate 91 /min 06/25/2024 01:18 pm EST heartrate 91 /min 06/25/2024 06:01 am EST heartrate 91 /min 06/25/2024 05:55 am EST heartrate 79 /min 06/24/2024 11:15 pm EST heartrate 84 /min 06/24/2024 01:22 pm EST heartrate 81 /min 06/23/2024 08:28 am EST heartrate 87 /min 06/22/2024 10:13 am EST temperature 97.4 [degF] 06/25/2024 01:19 pm EST temperature 97.4 [degF] 06/25/2024 01:18 pm EST temperature 98.6 [degF] 06/25/2024 06:01 am EST temperature 97.9 [degF] 06/25/2024 05:55 am EST temperature 97.9 [degF] 06/24/2024 11:15 pm EST temperature 98.1 [degF] 06/24/2024 01:22 pm EST respirations 18 /min 06/25/2024 01:19 pm EST respirations 18 /min 06/25/2024 01:18 pm EST respirations 20 /min 06/25/2024 06:01 am EST respirations 20 /min 06/25/2024 05:55 am EST respirations 18 /min 06/24/2024 11:15 pm EST respirations 18 /min 06/24/2024 01:22 pm EST
--- OUTSIDE RECORDS SUMMARY | 2024-08-20 13:15 | XMS_ITS | Encounter Summary ---
Author Organization [facility] Address [address] [place] [address] Care Team Providers Care Stakeholder Manager Name Role Phone Uday Sheehan MD Primary Care Provider [phone] Encounter Details Date Type Department Care Team (Late st Contact Info) Description 06/13/[address] [facility] Main Lab [address] [facility] [place] [address] Natanael Rodney MD [address] [place] [address] [place] [address] Anemia, unspecified Social History Tobacco Use Types Packs/Day [...] Procedure Name Priority Date/Time Associated Diagnosis Comments THYROID STIMULATING HORMONE WITH REFLEX TO FREE T4 AND FREE T3 Routine 06/13/2024 7:00 AM EST Anemia, unspecified FREE THYROXINE WITH REFLEX TO FREE TRIIODOTHYRONINE Routine 06/13/2024 7:00 AM EST Anemia, unspecified COMPLETE BLOOD COUNT Routine 06/13/2024 7:00 AM EST Anemia, unspecified TRIIODOTHYRONINE FREE Routine 06/13/2024 7:00 AM EST Anemia, unspecified COMPREHENSIVE METABOLIC PANEL Routine 06/13/2024 7:00 AM EST Anemia, unspecified documented in this encounter Results * (ABNORMAL) Triiodothyronine free (06/13/2024 7:00 AM EST) T3, Free 163(L) 230 - 420 pcg/dL LAB CHEMISTRY METHOD 06/13/2024 11:42 AM EST [facility] Blood Venous blood specimen / Unknown Venipuncture / Unknown 06/13/2024 7:00 AM EST 06/13/2024 8:28 AM EST us Natanael Rodney MD LAB BLOOD ORDERABLES Final Resu lt Performing Organization Address City/[facility]/ZIP Co de Phone Number [facility] [address] [place] [address], [place] [phone] * Free thyroxine with reflex to free triiodothyronine (06/13/2024 7:00 AM EST) Free T4 0.97 0.70 - 1.80 ng/dL LAB CHEMISTRY METHOD 06/13/2024 10:56 AM EST [facility] Blood Venous blood specimen / Unknown Venipuncture / Unknown 06/13/2024 7:00 AM EST 06/13/2024 8:28 AM EST us Natanael Rodney MD LAB BLOOD ORDERABLES Final Resu lt Performing Organization Address City/[facility]/ZIP Co de Phone Number [facility] [address] [place] [address], [place] [phone] * (ABNORMAL) Thyroid stimulating hormone with reflex to free t4 and free t3 (06/13/2024 7:00 AM EST) TSH 5.31(H) 0.40 - 4.00 mcIU/mL LAB CHEMISTRY METHOD 06/13/2024 10:28 AM EST [facility] Blood Venous blood specimen / Unknown Venipuncture / Unknown 06/13/2024 7:00 AM EST 06/13/2024 8:28 AM EST us Natanael Rodney MD LAB BLOOD ORDERABLES Final Resu lt [facility] [address] [place] [address], * (ABNORMAL) Comprehensive metabolic panel (06/13/2024 7:00 AM EST) Sodium 146(H) 133 - 145 mmol/L LAB CHEMISTRY METHOD 06/13/2024 10:23 AM [facility] Potassium 4.2 3.5 - 5.5 mmol/L LAB CHEMISTRY METHOD 06/13/2024 10:23 AM [facility] Chloride 115(H) 96 - 110 mmol/L LAB CHEMISTRY METHOD 06/13/2024 10:23 AM [facility] CO2 24 21 - 32 mmol/L LAB CHEMISTRY METHOD 06/13/2024 10:23 AM [facility] Anion Gap 7 3 - 11 LAB CHEMISTRY METHOD 06/13/2024 10:23 AM [facility] Glucose 86 70 - 100 mg/dL LAB CHEMISTRY METHOD 06/13/2024 10:23 AM [facility] BUN 43(H) 5 - 25 mg/dL LAB CHEMISTRY METHOD 06/13/2024 10:23 AM [facility] Creatinine 2.70(H) 0.70 - 1.30 mg/dL LAB CHEMISTRY METHOD 06/13/2024 10:23 AM [facility] eGFR 23(L) >=60 mL/min/1. 73m2 LAB CHEMISTRY METHOD 06/13/2024 10:23 AM [facility] Comment:Calculation based on the??Chronic Kidney Disease Epidemiology Collaboration (CKD-EPI) equation refit??without adjustment for race. BUN/Creatinine Ratio 15.9 LAB CHEMISTRY METHOD 06/13/2024 10:23 AM [facility] Calcium 7.8(L) 8.5 - 10.5 mg/dL LAB CHEMISTRY METHOD 06/13/2024 10:23 AM [facility] AST (SGOT) 137(H) 10 - 42 unit/L LAB CHEMISTRY METHOD 06/13/2024 10:23 AM [facility] ALT (SGPT) 111(H) 10 - 60 unit/L LAB CHEMISTRY METHOD 06/13/2024 10:23 AM [facility] Alkaline Phosphatase 99 42 - 121 unit/L LAB CHEMISTRY METHOD 06/13/2024 10:23 AM [facility] Total Protein 5.5(L) 6.0 - 8.0 g/dL LAB CHEMISTRY METHOD 06/13/2024 10:23 AM [facility] Albumin 1.7(L) 3.2 - 5.0 g/dL LAB CHEMISTRY METHOD 06/13/2024 10:23 AM [facility] Total Bilirubin 0.5 0.0 - 1.4 mg/dL LAB CHEMISTRY METHOD 06/13/2024 10:23 AM [facility] Blood Venous blood specimen / Unknown Venipuncture / Unknown 06/13/2024 7:00 AM EST 06/13/2024 8:28 AM EST us Natanael Rodney MD LAB BLOOD ORDERABLES Final Resu lt [facility] [address] [place] [address], * (ABNORMAL) Complete blood count (06/13/2024 7:00 AM EST) WBC 4.9 4.8 - 10.8 K/mcL LAB HEMETOLOGY METHOD 06/13/2024 10:08 AM [facility] RBC 2.80(L) 4.50 - 5.50 M/mcL LAB HEMETOLOGY METHOD 06/13/2024 10:08 AM [facility] Hemoglobin 7.6(L) 13.5 - 17.5 g/dL LAB HEMETOLOGY METHOD 06/13/2024 10:08 AM [facility] Hematocrit 25.2(L) 42.0 - 54.0 % LAB HEMETOLOGY METHOD 06/13/2024 10:08 AM [facility] MCV 88.7 79.0 - 98.0 FL LAB HEMETOLOGY METHOD 06/13/2024 10:08 AM [facility] MCH 26.8(L) 27.0 - 32.0 pcg LAB HEMETOLOGY METHOD 06/13/2024 10:08 AM [facility] MCHC 30.2(L) 32.0 - 37.0 g/dL LAB HEMETOLOGY METHOD 06/13/2024 10:08 AM [facility] RDW 16.8(H) 11.0 - 15.0 % LAB HEMETOLOGY METHOD 06/13/2024 10:08 AM [facility] Platelets 188 130 - 400 K/mcL LAB HEMETOLOGY METHOD 06/13/2024 10:08 AM [facility] MPV 10.3 7.0 - 11.0 FL LAB HEMETOLOGY METHOD 06/13/2024 10:08 AM [facility] NRBC 0.0 <1.0 % LAB HEMETOLOGY METHOD 06/13/2024 10:08 AM [facility] NRBC Absolute 0.00 <0.10 K/mcL LAB HEMETOLOGY METHOD 06/13/2024 10:08 AM [facility] Blood Venous blood specimen / Unknown Venipuncture / Unknown 06/13/2024 7:00 AM EST 06/13/2024 8:28 AM EST Natanael Rodney MD LAB BLOOD ORDERABLES Final Resu lt [facility] [place] [facility] [address] [place] [address], documented in this encounter Visit Diagnoses Diagnosis Anemia, unspecified documented in this encounter Additional Health Concerns Infection Onset Date Last Indicated Resolved Time ESBL 06/22/2024 06/22/2024 documented as of this encounter Care Teams Stakeholder Manager Relationship Specialty Start Date End Date Uday Sheehan MD [address] [place] [address] Dr AliciayoALEC riggins PCP - General Peanut Grader 12/19/16 documented as of this encounter
--- OUTSIDE RECORDS SUMMARY | 2024-08-20 13:15 | XMS_ITS | Encounter Summary ---
Author Organization [facility] Address [address] [place] [address] Care Team Providers Care Regional Rehabilitation Director Name Role Phone Uday Sheehan Primary Care Provider [phone] Encounter Details Date Type Department Care Team (Late st Contact Info) Description 03/20/2024 Lab Requisition [facility] [address] [place] [address] Lidia Barry NP [address] [place] [address] Acute and chronic respiratory failure with hypoxia [...] of this encounter Procedures * Due to [place] [employer] law, this organization might not be sharing negative HIV tests. Procedure Name Priority Date/Time Associated Diagnosis Comments VANCOMYCIN, TROUGH Routine 03/20/2024 7: 13 AM EDT Acute and chronic respiratory failure with hypoxia (HCC) No diagnosis documented in this encounter Results * Due to [place] [employer] law, this organization might not be sharing negative HIV tests. * (ABNORMAL) Vancomycin, Trough (03/20/2024 7:13 AM EDT) Vancomycin Trough 21.5(H) 10.0 - 20.0 ug/mL 03/20/2024 7:42 AM EDT [facility] Blood Structure of peripheral vein / Unknown 03/20/2024 7:13 AM EDT 03/20/2024 7:13 AM EDT Lidia Barry AGRICULTURAL EDUCATION PROFESSOR LAB BLOOD ORDERABLES Final R esult [facility] [address] [place] [address], documented in this encounter Visit Diagnoses Diagnosis [...] documented as of this encounter Care Teams Regional Rehabilitation Director Relationship Specialty Start Date End Date Uday Sheehan [address] [place] [address] [place] [address] PCP - General Internal Medicine 03/27/24 documented as of this encounter
--- OUTSIDE RECORDS SUMMARY | 2024-08-20 13:15 | XMS_ITS | Encounter Summary ---
Author Organization [facility] Address [address] [place] [address] Care Team Providers Care Painting Instructor Name Role Phone Uday Sheehan MD Primary Care Provider Encounter Details Date Type Department Care Team (Late st Contact Info) Description 07/15/2024 Lab Requisition [facility] - Main Lab [address] [facility] [place] [address] Tabby Bledsoe MD [address] [address] Essential (primary) hypertension; Hypothyroidism, unspecified; Unspecified atrial fibrillation (CMS/HCC) Social History Tobacco Use Types Packs/Day [...] Associated Diagnosis Comments COMPLETE BLOOD COUNT Routine 07/16/2024 5:50 AM EST Essential (primary) hypertension Hypothyroidism, unspecified Unspecified atrial fibrillation (CMS/HCC) COMPREHENSIVE METABOLIC PANEL Routine 07/16/2024 5:50 AM EST Essential (primary) hypertension Hypothyroidism, unspecified Unspecified atrial fibrillation (CMS/HCC) documented in this encounter Results * (ABNORMAL) Comprehensive metabolic panel (07/16/2024 5:50 AM EST) Sodium 145 133 - 145 mmol/L LAB CHEMISTRY METHOD 07/16/2024 10:45 AM EST [facility] Potassium 3.6 3.5 - 5.5 mmol/L LAB CHEMISTRY METHOD 07/16/2024 10:45 AM [facility] Chloride 110 96 - 110 mmol/L LAB CHEMISTRY METHOD 07/16/2024 10:45 AM [facility] CO2 31 21 - 32 mmol/L LAB CHEMISTRY METHOD 07/16/2024 10:45 AM [facility] Anion Gap 4 3 - 11 LAB CHEMISTRY METHOD 07/16/2024 10:45 AM [facility] Glucose 107(H) 70 - 100 mg/dL LAB CHEMISTRY METHOD 07/16/2024 10:45 AM [facility] BUN 29(H) 5 - 25 mg/dL LAB CHEMISTRY METHOD 07/16/2024 10:45 AM [facility] Creatinine 1.79(H) 0.70 - 1.30 mg/dL LAB CHEMISTRY METHOD 07/16/2024 10:45 AM [facility] eGFR 37(L) >=60 mL/min/1. 73m2 LAB CHEMISTRY METHOD 07/16/2024 10:45 AM [facility] Comment:Calculation based on the??Chronic Kidney Disease Epidemiology Collaboration (CKD-EPI) equation refit??without adjustment for race. BUN/Creatinine Ratio 16.2 LAB CHEMISTRY METHOD 07/16/2024 10:45 AM [facility] Calcium 9.9 8.5 - 10.5 mg/dL LAB CHEMISTRY METHOD 07/16/2024 10:45 AM [facility] AST (SGOT) 20 10 - 42 unit/L LAB CHEMISTRY METHOD 07/16/2024 10:45 AM [facility] ALT (SGPT) 12 10 - 60 unit/L LAB CHEMISTRY METHOD 07/16/2024 10:45 AM [facility] Alkaline Phosphatase 106 42 - 121 unit/L LAB CHEMISTRY METHOD 07/16/2024 10:45 AM [facility] Total Protein 6.0 6.0 - 8.0 g/dL LAB CHEMISTRY METHOD 07/16/2024 10:45 AM EST [facility] Albumin 1.6(L) 3.2 - 5.0 g/dL LAB CHEMISTRY METHOD 07/16/2024 10:45 AM [facility] Total Bilirubin 0.4 0.0 - 1.4 mg/dL LAB CHEMISTRY METHOD 07/16/2024 10:45 AM [facility] Blood Venous blood specimen / Unknown Venipuncture / Unknown 07/16/2024 5:50 AM EST 07/16/2024 9:42 AM EST Tabby Bledsoe MD LAB BLOOD ORDERABLES Fin al Result [facility] [address] [place] [address], * (ABNORMAL) Complete blood count (07/16/2024 5:50 AM EST) WBC 6.0 4.8 - 10.8 K/[facility] LAB HEMETOLOGY METHOD 07/16/2024 9:59 AM [facility] RBC 2.90(L) 4.50 - 5.50 M/[facility] LAB HEMETOLOGY METHOD 07/16/2024 9:59 AM [facility] Hemoglobin 7.5(L) 13.5 - 17.5 g/dL LAB HEMETOLOGY METHOD 07/16/2024 9:59 AM [facility] Hematocrit 25.1(L) 42.0 - 54.0 % LAB HEMETOLOGY METHOD 07/16/2024 9:59 AM [facility] MCV 86.9 79.0 - 98.0 FL LAB HEMETOLOGY METHOD 07/16/2024 9:59 AM [facility] MCH 26.0(L) 27.0 - 32.0 pcg LAB HEMETOLOGY METHOD 07/16/2024 9:59 AM EST [facility] MCHC 29.9(L) 32.0 - 37.0 g/dL LAB HEMETOLOGY METHOD 07/16/2024 9:59 AM [facility] RDW 19.1(H) 11.0 - 15.0 % LAB HEMETOLOGY METHOD 07/16/2024 9:59 AM [facility] Platelets 247 130 - 400 K/mcL LAB HEMETOLOGY METHOD 07/16/2024 9:59 AM [facility] MPV 9.7 7.0 - 11.0 FL LAB HEMETOLOGY METHOD 07/16/2024 9:59 AM [facility] NRBC 0.0 <1.0 % LAB HEMETOLOGY METHOD 07/16/2024 9:59 AM [facility] NRBC Absolute 0.00 <0.10 K/mcL LAB HEMETOLOGY METHOD 07/16/2024 9:59 AM [facility] Blood Venous blood specimen / Unknown Venipuncture / Unknown 07/16/2024 5:50 AM EST 07/16/2024 9:42 AM EST us Tabby Bledsoe MD LAB BLOOD ORDERABLES Fin al Result [facility] [address] [place] [address], documented in this encounter Visit Diagnoses Diagnosis Essential (primary) hypertension Unspecified essential hypertension Hypothyroidism, unspecified Unspecified atrial fibrillation (CMS/HCC) documented in this encounter Additional Health Concerns Infection Onset Date Last Indicated Resolved Time ESBL 06/22/2024 06/22/2024 documented as of this encounter Care Teams Painting Instructor Relationship Specialty Start Date End Date Uday Sheehan MD [address] [place] PCP - General Lead Shipper 12/19/16 documented as of this encounter
--- OUTSIDE RECORDS SUMMARY | 2024-08-20 13:15 | XMS_ITS | Encounter Summary ---
Author Organization [facility] Address [address] [place] [address] Care Team Providers Care Lumber Driver Name Role Phone Uday Sheehan MD Primary Care Provider [phone] Encounter Details Date Type Department Care Team (Late st Contact Info) Description 06/03/2024 Lab Requisition [facility] - Main Lab [address] [facility] [address] [place] [address] Zak Zuluaga MD [address] [place], [place] [id number] Hypothyroidism, unspecified; Essential (primary) hypertension; Unspecified atrial fibrillation (CMS/HCC) Social History Tobacco [...] TO FREE T4 AND FREE T3 Routine 06/03/2024 8:12 AM EST Hypothyroidism, unspecified Essential (primary) hypertension Unspecified atrial fibrillation (CMS/HCC) FREE THYROXINE WITH REFLEX TO FREE TRIIODOTHYRONINE Routine 06/03/2024 8:12 AM EST Hypothyroidism, unspecified Essential (primary) hypertension Unspecified atrial fibrillation (CMS/HCC) COMPLETE BLOOD COUNT Routine 06/03/2024 8:12 AM EST Hypothyroidism, unspecified Essential (primary) hypertension Unspecified atrial fibrillation (CMS/HCC) TRIIODOTHYRONINE FREE Routine 06/03/2024 8:12 AM EST Hypothyroidism, unspecified Essential (primary) hypertension Unspecified atrial fibrillation (CMS/HCC) COMPREHENSIVE METABOLIC PANEL Routine 06/03/2024 8:12 AM EST Hypothyroidism, unspecified Essential (primary) hypertension Unspecified atrial fibrillation (CMS/HCC) documented in this encounter Results * (ABNORMAL) Triiodothyronine free (06/03/2024 8:12 AM EST) T3, Free 136(L) 230 - 420 pcg/dL LAB CHEMISTRY METHOD 06/03/2024 1:08 PM EST [facility] Blood Venous blood specimen / Unknown Venipuncture / Unknown 06/03/2024 8:12 AM EST 06/03/2024 9:23 AM EST us Zak Zuluaga MD LAB BLOOD ORDERABLES Final Resul t Performing Organization Address City/[facility] Co de Phone Number [facility] [address] [place] [address], [place] [phone] * Free thyroxine with reflex to free triiodothyronine (06/03/2024 8:12 AM EST) Free T4 1.24 0.70 - 1.80 ng/dL LAB CHEMISTRY METHOD 06/03/2024 12:42 PM EST [facility] Blood Venous blood specimen / Unknown Venipuncture / Unknown 06/03/2024 8:12 AM EST 06/03/2024 9:23 AM EST us Zak Zuluaga MD LAB BLOOD ORDERABLES Final Resul t [facility] [address] [place] [address], [place] [phone] * (ABNORMAL) Thyroid stimulating hormone with reflex to free t4 and free t3 (06/03/2024 8:12 AM EST) TSH 5.71(H) 0.40 - 4.00 mcIU/mL LAB CHEMISTRY METHOD 06/03/2024 12:[address] [facility] Blood Venous blood specimen / Unknown Venipuncture / Unknown 06/03/2024 8:12 AM EST 06/03/2024 9:23 AM EST us Zak Zuluaga MD LAB BLOOD ORDERABLES Final Resul t [facility] [address] [place] [address], * (ABNORMAL) Comprehensive metabolic panel (06/03/2024 8:12 AM EST) Pathologist [facility] Sodium 145 133 - 145 mmol/L LAB CHEMISTRY METHOD 06/03/2024 12:[address] [facility] Potassium 3.9 3.5 - 5.5 mmol/L LAB CHEMISTRY METHOD 06/03/2024 12:[address] [facility] Chloride 110 96 - 110 mmol/L LAB CHEMISTRY METHOD 06/03/2024 12:[address] [facility] CO2 28 21 - 32 mmol/L LAB CHEMISTRY METHOD 06/03/2024 12:[address] [facility] Anion Gap 7 3 - 11 LAB CHEMISTRY METHOD 06/03/2024 12:[address] [facility] Glucose 83 70 - 100 mg/dL LAB CHEMISTRY METHOD 06/03/2024 12:[address] [facility] BUN 40(H) 5 - 25 mg/dL LAB CHEMISTRY METHOD 06/03/2024 12:[address] [facility] Creatinine 2.47(H) 0.70 - 1.30 mg/dL LAB CHEMISTRY METHOD 06/03/2024 12:[address] [facility] eGFR 25(L) >=60 mL/min/1. 73m2 LAB CHEMISTRY METHOD 06/03/2024 12:[address] [facility] Comment:Calculation based on the??Chronic Kidney Disease Epidemiology Collaboration (CKD-EPI) equation refit??without adjustment for race. BUN/Creatinine Ratio 16.2 LAB CHEMISTRY METHOD 06/03/2024 12:[address] [facility] Calcium 8.1(L) 8.5 - 10.5 mg/dL LAB CHEMISTRY METHOD 06/03/2024 12:[address] [facility] AST (SGOT) 19 10 - 42 unit/L LAB CHEMISTRY METHOD 06/03/2024 12:[address] [facility] ALT (SGPT) 17 10 - 60 unit/L LAB CHEMISTRY METHOD 06/03/2024 12:[address] [facility] Alkaline Phosphatase 81 42 - 121 unit/L LAB CHEMISTRY METHOD 06/03/2024 12:[address] [facility] Total Protein 5.4(L) 6.0 - 8.0 g/dL LAB CHEMISTRY METHOD 06/03/2024 12:[address] [facility] Albumin 1.9(L) 3.2 - 5.0 g/dL LAB CHEMISTRY METHOD 06/03/2024 12:[address] [facility] Total Bilirubin 0.4 0.0 - 1.4 mg/dL LAB CHEMISTRY METHOD 06/03/2024 12:[address] [facility] Blood Venous blood specimen / Unknown Venipuncture / Unknown 06/03/2024 8:12 AM EST 06/03/2024 9:23 AM EST us Zak Zuluaga MD LAB BLOOD ORDERABLES Final Resul t [facility] [address] [place] [address], * (ABNORMAL) Complete blood count (06/03/2024 8:12 AM EST) WBC 6.6 4.8 - 10.8 K/mcL LAB HEMETOLOGY METHOD 06/03/2024 10:[address] [facility] RBC 2.70(L) 4.50 - 5.50 M/[facility] LAB HEMETOLOGY METHOD 06/03/2024 10:[address] [facility] Hemoglobin 7.2(L) 13.5 - 17.5 g/dL LAB HEMETOLOGY METHOD 06/03/2024 10:[address] [facility] Hematocrit 23.7(L) 42.0 - 54.0 % LAB HEMETOLOGY METHOD 06/03/2024 10:[address] [facility] MCV 89.1 79.0 - 98.0 FL LAB HEMETOLOGY METHOD 06/03/2024 10:[address] [facility] MCH 27.1 27.0 - 32.0 pcg LAB HEMETOLOGY METHOD 06/03/2024 10:[address] [facility] MCHC 30.4(L) 32.0 - 37.0 g/dL LAB HEMETOLOGY METHOD 06/03/2024 10:[address] [facility] RDW 16.7(H) 11.0 - 15.0 % LAB HEMETOLOGY METHOD 06/03/2024 10:[address] [facility] Platelets 145 130 - 400 K/[facility] LAB HEMETOLOGY METHOD 06/03/2024 10:[address] [facility] MPV 10.4 7.0 - 11.0 FL LAB HEMETOLOGY METHOD 06/03/2024 10:[address] [facility] NRBC 0.0 <1.0 % LAB HEMETOLOGY METHOD 06/03/2024 10:[address] [facility] NRBC Absolute 0.00 <0.10 K/[facility] LAB HEMETOLOGY METHOD 06/03/2024 10:[address] [facility] Blood Venous blood specimen / Unknown Venipuncture / Unknown 06/03/2024 8:12 AM EST 06/03/2024 9:23 AM EST Zak Zuluaga MD LAB BLOOD ORDERABLES Final Resul t [facility] [address] [place] [address], documented in this encounter Visit Diagnoses Diagnosis Hypothyroidism, unspecified Essential (primary) hypertension Unspecified essential hypertension Unspecified atrial fibrillation (CMS/HCC) documented in this encounter Additional Health Concerns Infection Onset Date Last Indicated Resolved Time ESBL 06/22/2024 06/22/2024 documented as of this encounter Care Teams Lumber Driver Relationship Specialty Start Date End Date Uday Sheehan MD [address] [place] [address] Dr Aliciayogilson [place] PCP - General 4Th Grade Math Teacher 12/19/16 documented as of this encounter
--- OUTSIDE RECORDS SUMMARY | 2024-08-20 13:15 | XMS_ITS | Encounter Summary ---
Author Organization [facility] Address [address] [place] [address] Care Team Providers Care Rubber Compounder Name Role Phone Uday Sheehan Primary Care Provider [phone] Encounter Details Date Type Department Care Team (Late st Contact Info) Description 03/29/2024 Orders Only [facility] [address] [place] [address] Vasquez Quintanilla MD [address] [place] [address] Social History Tobacco Use Types Packs/Day Years [...] Time Multidrug resistant organisms MRSA 03/25/20242023 R/O C.diff 03/29/2024 03/30/2024 04/01/2024 12:4 2 PM EDT documented as of this encounter Care Teams Rubber Compounder Relationship Specialty Start Date End Date Uday Sheehan [address] [place] [address] [place] [address] PCP - General Internal Medicine 03/27/24 documented as of this encounter
--- OUTSIDE RECORDS SUMMARY | 2024-08-20 13:15 | XMS_ITS | Encounter Summary ---
Author Organization [facility] Address [address] [place] [address] Care Team Providers Care Gold Prospector Name Role Phone Uday Sheehan Primary Care Provider [phone] Encounter Details Date Type Department Care Team (Late st Contact Info) Description 03/25/[address] [facility] [address] [place] [address] Cecilio Bautista PA [address] [place] [address] Acute and chronic respiratory failure with hypoxia [...] of this encounter Procedures * Due to [place] state law, this organization might not be sharing negative HIV tests. Procedure Name Priority Date/Time Associated Diagnosis Comments PREPARE RBC Routine 03/26/2024 9:24 AM EDT CBC AUTO DIFFERENTIAL Routine 03/25/2024 5:50 AM EDT Acute and chronic respiratory failure with hypoxia (HCC) No diagnosis CBC AUTO DIFFERENTIAL Routine 03/25/2024 5:50 AM EDT Acute and chronic respiratory failure with hypoxia (HCC) No diagnosis RESPIRATORY CULTURE W/GRAM STAIN Routine 03/25/2024 5:50 AM EDT Acute and chronic respiratory failure with hypoxia (HCC) No diagnosis TYPE AND SCREEN Routine 03/25/2024 5:50 AM EDT Acute and chronic respiratory failure with hypoxia (HCC) No diagnosis AMMONIA Routine 03/25/2024 5:50 AM EDT Acute and chronic respiratory failure with hypoxia (HCC) No diagnosis COMPREHENSIVE METABOLIC PANEL Routine 03/25/2024 5:50 AM EDT Acute and chronic respiratory failure with hypoxia (HCC) No diagnosis documented in this encounter Results * Due to [place] state law, this organization might not be sharing negative HIV tests. * Blood Bank: Prepare Red Blood Cells (03/26/2024 9:24 AM EDT) Product Code [id number] [facility] Unit Number [id number] [facility] Unit ABO O [facility] Unit RH POS [facility] Crossmatch Compatible [facility] Dispense Status Presumed Transfuse [facility] Blood Expiration Date [facility] Blood Type Barcode 5100 [facility] Dispensed Volume 291 ML [facility] Product Code [id number] [facility] Unit [facility] [id number] [facility] Unit ABO O [facility] Unit RH POS [facility] Crossmatch Compatible [facility] Dispense Status Presumed Transfuse [facility] Blood Expiration Date [facility] Blood Type Barcode 5100 [facility] Dispensed Volume 377 ML [facility] 03/26/2024 9:24 AM EDT 03/25/2024 11:34 AM EDT us Cecilio ZHU BLOOD BANK PRODUCT ORDERABLE S Final Result [facility] [address] [place] [id number], * (ABNORMAL) Respiratory Culture w/Gram Stain (03/25/2024 5:50 AM EDT) Respiratory Culture Few Methicillin resistant Staphylococcus aureus (MRSA)(A) MINIMUM INHIBITORY CONCENTRATION ([place]) 03/28/2024 8:28 AM EDT [facility] Respiratory Culture Few Debora krusei(A) MINIMUM INHIBITORY CONCENTRATION ([place]) 03/28/2024 8:28 AM EDT [facility] Gram Stain Result <10 per LPF Epithelial Cells 03/28/2024 8:28 AM EDT [facility] Gram Stain Result >25 per LPF White Blood Cells Seen 03/28/2024 8:28 AM EDT [facility] Gram Stain Result Few Gram Positive Bacilli 03/28/2024 8:28 AM EDT [facility] Gram Stain Result Rare Gram Positive Cocci 03/28/2024 8:28 AM EDT [facility] Sputum Sputum / Unknown Non-Blood Collection / Unknown 03/25/2024 5:50 AM EDT 03/25/2024 5:19 PM EDT Narrative [facility] - 03/28/2024 8:28 AM EDT Rare normal respiratory nohemi present. Organism Antibiotic Method [...] Inducible Clindamycin Resistance has not been found. us Cecilio ZHU LAB MICROBIOLOGY - GENERAL O RDERABLES Final Result [facility] [address] [place] [id number], * (ABNORMAL) CBC Auto Differential (03/25/2024 5:50 AM EDT) WBC 8.5 4.8 - 10.8 10*3/uL 03/25/2024 5:56 PM EDT [facility] RBC 2.47(L) 4.70 - 6.10 10*6/uL 03/25/2024 5:56 PM EDT [facility] Hemoglobin 6.9(LL) 13.7 - 16.5 g/dL 03/25/2024 5:56 PM EDT [facility] Hematocrit 21.8(L) 40.5 - 48.5 % 03/25/2024 5:56 PM EDT [facility] MCV 88.3 80.0 - 94.0 fL 03/25/2024 5:56 PM EDT [facility] MCH 27.9 26.0 - 34.0 pg 03/25/2024 5:56 PM EDT [facility] MCHC 31.7 31.0 - 36.0 g/dL 03/25/2024 5:56 PM EDT [facility] RDW 15.6(H) 12.0 - 15.0 % 03/25/2024 5:56 PM EDT [facility] RDW Standard Deviation 50.4(H) 35.1 - 43.9 fL 03/25/2024 5:56 PM EDT [facility] Platelets 202 140 - 440 10*3/uL 03/25/2024 5:56 PM EDT [facility] MPV 10.0 9.4 - 12.4 fL 03/25/2024 5:56 PM EDT [facility] Neutrophil % 67.2 50.0 - 75.0 % 03/25/2024 5:56 PM EDT [facility] Immature Grans % 0.8 0.0 - 0.9 % 03/25/2024 5:56 PM EDT [facility] Lymphocyte % 14.3(L) 20.0 - 44.0 % 03/25/2024 5:56 PM EDT [facility] Monocyte % 12.9 0.0 - 14.0 % 03/25/2024 5:56 PM EDT [facility] Eosinophil % 4.3 0.0 - 5.0 % 03/25/2024 5:56 PM EDT [facility] Basophil % 0.5 0.0 - 2.0 % 03/25/2024 5:56 PM EDT [facility] Neutrophil # 5.69 1.80 - 7.70 10*3/uL 03/25/2024 5:56 PM EDT [facility] Immature Grans # 0.07(H) 0.00 - 0.03 10*3/uL 03/25/2024 5:56 PM EDT [facility] Lymphocyte # 1.20 1.00 - 4.75 10*3/uL 03/25/2024 5:56 PM EDT [facility] Monocyte # 1.10 0.00 - 6.00 10*3/uL 03/25/2024 5:56 PM EDT [facility] Eosinophil # 0.40 0.00 - 0.80 10*3/uL 03/25/2024 5:56 PM EDT [facility] Basophil # <0.03 0.00 - 0.20 10*3/uL 03/25/2024 5:56 PM EDT [facility] nRBC % 0.0 0 - 0 /100 WBCs 03/25/2024 5:56 PM EDT [facility] nRBC # <0.01 0.00 - 0.13 10*3/uL 03/25/2024 5:56 PM EDT [facility] Blood Structure of peripheral vein / Unknown Venipuncture / Unknown 03/25/2024 5:50 AM EDT 03/25/2024 5:19 PM EDT us Cecilio ZHU LAB BLOOD ORDERABLES Final R esult [facility] [address] [place] [phone], * Type and Screen (03/25/2024 5:50 AM EDT) ABO Blood Type O 03/25/2024 12:36 PM EDT [facility] RH Type Positive 03/25/2024 12:36 PM EDT [facility] Expiration Date/Time 2024-03-28 23:59 03/25/2024 12:36 PM EDT [facility] Antibody Screen Negative 03/25/2024 12:36 PM EDT [facility] Blood Structure of peripheral vein / Unknown Venipuncture / Unknown 03/25/2024 5:50 AM EDT 03/25/2024 11:34 AM EDT us Cecilio ZHU LAB BLOOD BANK TEST ORDERABL ES Edited Result - Final [facility] [address] [place] [address], [place] * (ABNORMAL) CBC Auto Differential (03/25/2024 5:50 AM EDT) WBC 8.3 4.8 - 10.8 10*3/uL 03/25/2024 1:27 PM EDT [facility] RBC 2.35(L) 4.70 - 6.10 10*6/uL 03/25/2024 1:27 PM EDT [facility] Hemoglobin 6.6(LL) 13.7 - 16.5 g/dL 03/25/2024 1:27 PM EDT [facility] Hematocrit 21.0(L) 40.5 - 48.5 % 03/25/2024 1:27 PM EDT [facility] MCV 89.4 80.0 - 94.0 fL 03/25/2024 1:27 PM EDT [facility] MCH 28.1 26.0 - 34.0 pg 03/25/2024 1:27 PM EDT [facility] MCHC 31.4 31.0 - 36.0 g/dL 03/25/2024 1:27 PM EDT [facility] RDW 16.1(H) 12.0 - 15.0 % 03/25/2024 1:27 PM EDT [facility] RDW Standard Deviation 51.3(H) 35.1 - 43.9 fL 03/25/2024 1:27 PM EDT [facility] Platelets 174 140 - 440 10*3/uL 03/25/2024 1:27 PM EDT [facility] MPV 10.9 9.4 - 12.4 fL 03/25/2024 1:27 PM EDT [facility] Neutrophil % 63.1 50.0 - 75.0 % 03/25/2024 1:27 PM EDT [facility] Immature Grans % 0.4 0.0 - 0.9 % 03/25/2024 1:27 PM EDT [facility] Lymphocyte % 17.4(L) 20.0 - 44.0 % 03/25/2024 1:27 PM EDT [facility] Monocyte % 13.8 0.0 - 14.0 % 03/25/2024 1:27 PM EDT [facility] Eosinophil % 4.8 0.0 - 5.0 % 03/25/2024 1:27 PM EDT [facility] Basophil % 0.5 0.0 - 2.0 % 03/25/2024 1:27 PM EDT [facility] Neutrophil # 5.23 1.80 - 7.70 10*3/uL 03/25/2024 1:27 PM EDT [facility] Immature Grans # 0.03 0.00 - 0.03 10*3/uL 03/25/2024 1:27 PM EDT [facility] Lymphocyte # 1.40 1.00 - 4.75 10*3/uL 03/25/2024 1:27 PM EDT [facility] Monocyte # 1.10 0.00 - 6.00 10*3/uL 03/25/2024 1:27 PM EDT [facility] Eosinophil # 0.40 0.00 - 0.80 10*3/uL 03/25/2024 1:27 PM EDT [facility] Basophil # <0.03 0.00 - 0.20 10*3/uL 03/25/2024 1:27 PM EDT [facility] nRBC % 0.0 0 - 0 /100 WBCs 03/25/2024 1:27 PM EDT [facility] nRBC # <0.01 0.00 - 0.13 10*3/uL 03/25/2024 1:27 PM EDT [facility] Blood Structure of peripheral vein / Unknown Venipuncture / Unknown 03/25/2024 5:50 AM EDT 03/25/2024 11:34 AM EDT Cecilio ZHU LAB BLOOD ORDERABLES Final R esult Performing Organization Address [facility]/ZIP Co de Phone Number [facility] [address] [address], [place] [phone] * Ammonia (03/25/2024 5:50 AM EDT) Ammonia 46 16 - 60 umol/L 03/25/2024 12:29 PM EDT [facility] Blood Structure of peripheral vein / Unknown Venipuncture / Unknown 03/25/2024 5:50 AM EDT 03/25/2024 11:34 AM EDT Cecilio ZHU LAB BLOOD ORDERABLES Final R esult Performing Organization Address [facility] Co de Phone Number [facility] [address] [address], [place] [phone] * (ABNORMAL) Comprehensive Metabolic Panel (03/25/2024 5:50 AM EDT) NA 139 136 - 145 mmol/L 03/25/2024 12:40 PM EDT [facility] K 4.5 3.5 - 5.1 mmol/L 03/25/2024 12:40 PM EDT [facility] Cl 100 98 - 109 mmol/L 03/25/2024 12:40 PM EDT [facility] CO2 29 23 - 32 mmol/L 03/25/2024 12:40 PM EDT [facility] Anion Gap 15 >=0 03/25/2024 12:40 PM EDT [facility] Glucose 101(H) 60 - 99 mg/dL 03/25/2024 12:40 PM EDT [facility] Creatinine 0.95 0.50 - 1.12 mg/dL 03/25/2024 12:40 PM EDT [facility] Calcium 8.8 8.4 - 10.4 mg/dL 03/25/2024 12:40 PM EDT [facility] Total Protein 5.9(L) 6.6 - 8.7 g/dL 03/25/2024 12:40 PM EDT [facility] Albumin 2.8(L) 3.5 - 5.0 g/dL 03/25/2024 12:40 PM EDT [facility] Bilirubin, Total 0.5 0.2 - 1.2 mg/dL 03/25/2024 12:40 PM EDT [facility] Alkaline Phosphatase 75 40 - 129 U/L 03/25/2024 12:40 PM EDT [facility] AST 34 0 - 40 U/L 03/25/2024 12:40 PM EDT [facility] ALT 17 <=41 U/L 03/25/2024 12:40 PM T [facility] BUN 15 8 - 23 mg/dL 03/25/2024 12:40 PM T [facility] eGFR 79 >=60 mL/min/1. 73m2 03/25/2024 12:40 PM T [facility] Comment:The estimated glomer ular filtration [...] Globulin, Total 3.1 2.1 - 4.2 g/dL 03/25/2024 12:40 PM T [facility] A/G Ratio 0.9(L) 1.5 - 3.0 03/25/2024 12:40 PM T [facility] Blood Structure of peripheral vein / Unknown Venipuncture / Unknown 03/25/2024 5:50 AM EDT 03/25/2024 11:34 AM EDT Cecilio ZHU LAB BLOOD ORDERABLES Final R esult [facility] [address] [place] [address], documented in this encounter Visit Diagnoses Diagnosis [...] documented as of this encounter Care Teams Gold Prospector Relationship Specialty Start Date End Date Uday Sheehan [address] [place] [address] [place] [address] PCP - General Internal Medicine 03/27/24 documented as of this encounter
--- OUTSIDE RECORDS SUMMARY | 2024-08-20 13:15 | XMS_ITS | Encounter Summary ---
Author Organization [facility] Address [address] [place] [address] Care Team Providers Care Switch Tender Name Role Phone Uday Sheehan MD Primary Care Provider [phone] Encounter Details Date Type Department Care Team (Late st Contact Info) Description 06/23/2024 Lab Requisition [facility] [address] [place] [id number] Pearl Garcia MD [address] [place] [address] Other retention of urine Social History Tobacco Use Types Packs/Day Years [...] Associated Diagnosis Comments URINALYSIS WITH REFLEX MICROSCOPIC Routine 06/22/2024 12:00 AM EST Other retention of urine URINALYSIS WITH REFLEX MICROSCOPIC Routine 06/22/2024 12:00 AM EST Other retention of urine CULTURE URINE Routine 06/22/2024 12:00 AM EST Other retention of urine documented in this encounter Results * (ABNORMAL) Urinalysis with reflex microscopic (06/22/2024 12:00 AM EST) Specific [place] Urine 1.013 1.003 - 1.030 LAB URINALYSIS - AUTOMATED METHOD 06/23/2024 12:51 PM EST [facility] pH, Urine 6.0 5.0 - 8.0 pH LAB URINALYSIS - AUTOMATED METHOD 06/23/2024 12:51 PM [facility] Leukocytes, Urine Large(A) Negative LAB URINALYSIS - AUTOMATED METHOD 06/23/2024 12:51 PM [facility] Nitrite, Urine Negative Negative LAB URINALYSIS - AUTOMATED METHOD 06/23/2024 12:51 PM [facility] Protein, Urine 100(A) <=Trace mg/dL LAB URINALYSIS - AUTOMATED METHOD 06/23/2024 12:51 PM [facility] Glucose, Urine Negative Negative mg/dL LAB URINALYSIS - AUTOMATED METHOD 06/23/2024 12:51 PM [facility] Ketones, Urine Negative Negative mg/dL LAB URINALYSIS - AUTOMATED METHOD 06/23/2024 12:51 PM [facility] Urobilinogen , Urine 0.2 0.2 - 1.0 mg/dL LAB URINALYSIS - AUTOMATED METHOD 06/23/2024 12:51 PM [facility] Bilirubin, Urine Negative Negative LAB URINALYSIS - AUTOMATED METHOD 06/23/2024 12:51 PM [facility] Blood, Urine Large(A) Negative LAB URINALYSIS - AUTOMATED METHOD 06/23/2024 12:51 PM [facility] RBC, Urine 32.8(H) 0 - 4 /HPF LAB URINALYSIS - AUTOMATED METHOD 06/23/2024 12:51 PM [facility] WBC, Urine 3,850.2(H) 0 - 4 /HPF LAB URINALYSIS - AUTOMATED METHOD 06/23/2024 12:51 PM [facility] Squamous Epithelial, Urine 20 0 - 60 /LPF LAB URINALYSIS - AUTOMATED METHOD 06/23/2024 12:51 PM [facility] Bacteria, Urine Many(A) Negative /HPF LAB URINALYSIS - AUTOMATED METHOD 06/23/2024 12:51 PM EST [facility] Hyaline Casts, Urine 2.9 0 - 3 /LPF LAB URINALYSIS - AUTOMATED METHOD 06/23/2024 12:51 PM EST [facility] Urine Urine specimen obtained by clean catch procedure / Unknown Non-blood Collection / Unknown 06/22/2024 06/23/2024 11:44 AM EST us Pearl Garcia MD LAB URINE ORDERABLES Final Resul t [facility] [address] [place] [address], * (ABNORMAL) Culture urine (06/22/2024 12:00 AM EST) Culture, Urine >100,000 CFU/mL Klebsiella pneumoniae ESBL(A) [place] 06/26/2024 7:51 AM EST [facility] Comment: THIS ORGANISM IS POSITIVE FOR EXTENDED SPECTRUM BETA-LACTAMASE (ESBL). ??EXTENDED SPECTRUM BETA-LACTAMASE ??PRODUCING ORGANISMS DEMONSTRATE DECREASED ACTIVITY WITH PENICILLILNS, CEPHALOSPORINS AND AZTREONAM. This is an edited result. Previous organism was Gram negative bacilli on 06/24/2024 at 1028 EST. Culture, Urine >100,000 CFU/mL Escherichia coli(A) [place] 06/26/2024 7:51 AM EST [facility] Comment: The organism value for this result has been updated. These results have been appended to the previously preliminary verified report. Urine Urine specimen obtained by clean catch procedure / Unknown Non-blood Collection / Unknown 06/22/2024 06/23/2024 11:44 AM EST Narrative Organism Antibiotic Method Susceptibility Klebsiella pneumoniae ESBL Amoxicillin/Clavulanate [place] 16 ug/ml: Intermediate Klebsiella pneumoniae ESBL Ampicillin/Sulbactam [place] >=32 ug/ml: Resistant Klebsiella pneumoniae ESBL Piperacillin/Tazobactam [place] 16 ug/ml: Intermediate Klebsiella pneumoniae ESBL Cefazolin (Urine) [place] >=32 ug/ml: Resistant Klebsiella pneumoniae ESBL Cefoxitin [place] <=4 ug/ml: Susceptible Klebsiella pneumoniae ESBL Ceftazidime [place] 16 ug/ml: Resistant Klebsiella pneumoniae ESBL Ceftriaxone [place] >=64 ug/ml: Resistant Klebsiella pneumoniae ESBL Cefepime [place] >=32 ug/ml: Resistant Klebsiella pneumoniae ESBL Meropenem [place] <=0.25 ug/ml: Susceptible Klebsiella pneumoniae ESBL Amikacin [place] 4 ug/ml: Susceptible Klebsiella pneumoniae ESBL Gentamicin [place] <=1 ug/ml: Susceptible Klebsiella pneumoniae ESBL Ciprofloxacin [place] >=4 ug/ml: Resistant Klebsiella pneumoniae ESBL Levofloxacin [place] 4 ug/ml: Resistant Klebsiella pneumoniae ESBL Nitrofurantoin [place] 64 ug/ml: Intermediate Klebsiella pneumoniae ESBL Trimethoprim/Sulfamethoxazo le [place] >=320 ug/ml: Resistant Escherichia coli Amoxicillin/Clavulanate [place] 8 ug/ml: Susceptible [...] Nitrofurantoin [place] <=16 ug/ml: Susceptible Escherichia coli Trimethoprim/Sulfame thoxazo le [place] >=320 ug/ml: Resistant us Pearl Garcia MD LAB MICROBIOLOGY - GENERAL ORDER [place] Final Result [facility] [address] [place] [address], documented in this encounter Visit Diagnoses Diagnosis Other retention of urine documented in this encounter Additional Health Concerns Infection Onset Date Last Indicated Resolved Time ESBL 06/22/2024 06/22/2024 documented as of this encounter Care Teams Switch Tender Relationship Specialty Start Date End Date Uday Sheehan MD [address] [facility] [address] Donna [place] PCP - General Mud Worker 12/19/16 documented as of this encounter
--- OUTSIDE RECORDS SUMMARY | 2024-08-20 13:15 | XMS_ITS | Encounter Summary ---
Author Organization [facility] Address [address] [id number] Care Team Providers Care Water Supply Engineer Name Role Phone Uday Sheehan Primary Care Provider [phone] Encounter Details Date Type Department Care Team (Late st Contact Info) Description 04/15/2024 Lab Requisition [facility] [address] [place] [address] Salo Whyte MD [address] [place] [address] Acute respiratory failure, unspecified whether with hypoxia or hypercapnia (HCC); No diagnosis Social History Tobacco Use [...] Diagnosis Comments N-TERMINAL PROBRAIN NATRIURETIC PEPTIDE Routine 04/15/2024 12:05 PM EDT Acute respiratory failure, unspecified whether with hypoxia or hypercapnia (HCC) No diagnosis CBC AUTO DIFFERENTIAL Routine 04/15/2024 12:05 PM EDT Acute respiratory failure, unspecified whether with hypoxia or hypercapnia (HCC) No diagnosis COMPREHENSIVE METABOLIC PANEL Routine 04/15/2024 12:05 PM EDT Acute respiratory failure, unspecified whether with hypoxia or hypercapnia (HCC) No diagnosis documented in this encounter Results * Due to [place] state law, this organization might not be sharing negative HIV tests. * (ABNORMAL) CBC Auto Differential (04/15/2024 12:05 PM EDT) WBC 6.4 4.8 - 10.8 10*3/uL 04/15/2024 12:45 PM EDT [facility] RBC 2.94(L) 4.70 - 6.10 10*6/uL 04/15/2024 12:45 PM EDT [facility] Hemoglobin 8.1(L) 13.7 - 16.5 g/dL 04/15/2024 12:45 PM EDT [facility] Hematocrit 26.2(L) 40.5 - 48.5 % 04/15/2024 12:45 PM EDT [facility] MCV 89.1 80.0 - 94.0 fL 04/15/2024 12:45 PM EDT [facility] MCH 27.6 26.0 - 34.0 pg 04/15/2024 12:45 PM EDT [facility] MCHC 30.9(L) 31.0 - 36.0 g/dL 04/15/2024 12:45 PM EDT [facility] RDW 17.3(H) 12.0 - 15.0 % 04/15/2024 12:45 PM EDT [facility] RDW Standard Deviation 55.5(H) 35.1 - 43.9 fL 04/15/2024 12:45 PM EDT [facility] Platelets 216 140 - 440 10*3/uL 04/15/2024 12:45 PM EDT [facility] MPV 10.4 9.4 - 12.4 fL 04/15/2024 12:45 PM EDT [facility] Neutrophil % 60.4 50.0 - 75.0 % 04/15/2024 12:45 PM EDT [facility] Immature Grans % 0.3 0.0 - 0.9 % 04/15/2024 12:45 PM EDT [facility] Lymphocyte % 21.7 20.0 - 44.0 % 04/15/2024 12:45 PM EDT [facility] Monocyte % 12.0 0.0 - 14.0 % 04/15/2024 12:45 PM EDT [facility] Eosinophil % 5.1(H) 0.0 - 5.0 % 04/15/2024 12:45 PM EDT [facility] Basophil % 0.5 0.0 - 2.0 % 04/15/2024 12:45 PM EDT [facility] Neutrophil # 3.88 1.80 - 7.70 10*3/uL 04/15/2024 12:45 PM EDT [facility] Immature Grans # <0.03 0.00 - 0.03 10*3/uL 04/15/2024 12:45 PM EDT [facility] Lymphocyte # 1.40 1.00 - 4.75 10*3/uL 04/15/2024 12:45 PM EDT [facility] Monocyte # 0.80 0.00 - 6.00 10*3/uL 04/15/2024 12:45 PM EDT [facility] Eosinophil # 0.30 0.00 - 0.80 10*3/uL 04/15/2024 12:45 PM EDT [facility] Basophil # <0.03 0.00 - 0.20 10*3/uL 04/15/2024 12:45 PM EDT [facility] nRBC % 0.0 0 - 0 /100 WBCs 04/15/2024 12:45 PM EDT [facility] nRBC # <0.01 0.00 - 0.13 10*3/uL 04/15/2024 12:45 PM EDT [facility] Blood Structure of peripheral vein / Unknown Venipuncture / Unknown 04/15/2024 12:05 PM EDT 04/15/2024 12:05 PM EDT us Salo Whyte MD LAB BLOOD ORDERABLES Final Result Performing Organization Address [facility]/ZIP Co de Phone Number [facility] [address] [address], [place] [phone] * N-terminal ProBrain Natriuretic Peptide - [facility]/[place] Only (04/15/2024 12:05 PM EDT) Pro-B-Type Natriuretic Peptide 457 <=1,800 pg/mL 04/15/2024 12:51 PM EDT [facility] Comment: RULE IN CHF >/= 450 pg/mL for patients <50 years old RULE IN CHF >/= 900 pg/mL for patients 50-75 years old RULE IN CHF >/= 1800 pg/mL for patients >75 years old RULE OUT CHF </= 300 pg/mL (not age specific) Blood Structure of peripheral vein / Unknown Venipuncture / Unknown 04/15/2024 12:05 PM EDT 04/15/2024 12:05 PM EDT us Salo Whyte MD LAB BLOOD ORDERABLES Final Result Performing Organization Address [facility] Co de Phone Number [facility] [address] [address], [place] [phone] * (ABNORMAL) Comprehensive Metabolic Panel (04/15/2024 12:05 PM EDT) NA 140 136 - 145 mmol/L 04/15/2024 12:59 PM EDT [facility] K 4.1 3.5 - 5.1 mmol/L 04/15/2024 12:59 PM EDT [facility] Cl 97(L) 98 - 109 mmol/L 04/15/2024 12:59 PM EDT [facility] CO2 33(H) 22 - 32 mmol/L 04/15/2024 12:59 PM EDT [facility] Anion Gap 14 >=0 04/15/2024 12:59 PM EDT [facility] Glucose 94 60 - 99 mg/dL 04/15/2024 12:59 PM EDT [facility] Creatinine 1.13(H) 0.50 - 1.12 mg/dL 04/15/2024 12:59 PM EDT [facility] Calcium 9.5 8.4 - 10.4 mg/dL 04/15/2024 12:59 PM EDT [facility] Total Protein 6.6 6.6 - 8.7 g/dL 04/15/2024 12:59 PM EDT [facility] Albumin 3.1(L) 3.5 - 5.0 g/dL 04/15/2024 12:59 PM EDT [facility] Bilirubin, Total 0.3 0.2 - 1.2 mg/dL 04/15/2024 12:59 PM EDT [facility] Alkaline Phosphatase 105 40 - 129 U/L 04/15/2024 12:59 PM EDT [facility] AST 29 0 - 40 U/L 04/15/2024 12:59 PM EDT [facility] ALT 25 <=41 U/L 04/15/2024 12:59 PM T [facility] BUN 41(H) 8 - 23 mg/dL 04/15/2024 12:59 PM EDT [facility] eGFR 64 >=60 mL/min/1. 73m2 04/15/2024 12:59 PM T [facility] Comment:The estimated glomer ular filtration rate [...] in Diagnosing Kidney Disease . Globulin, Total 3.5 2.1 - 4.2 g/dL 04/15/2024 12:59 PM EDT [facility] A/G Ratio 0.9(L) 1.5 - 3.0 04/15/2024 12:59 PM EDT [facility] Blood Structure of peripheral vein / Unknown Venipuncture / Unknown 04/15/2024 12:05 PM EDT 04/15/2024 12:05 PM EDT us Salo Whyte MD LAB BLOOD ORDERABLES Final Result [facility] [address] [facility] [address] [place] [address], [place] [phone] documented in this encounter Visit Diagnoses Diagnosis Acute respiratory failure, unspecified whether with hypoxia or hypercapnia (HCC) No diagnosis documented in this encounter Additional Health Concerns Infection Onset Date Last Indicated Resolved Time 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
--- OUTSIDE RECORDS SUMMARY | 2024-08-20 13:15 | XMS_ITS | Encounter Summary ---
Author Organization [facility] Address [address] [place] [address] Care Team Providers Care Hydraulic Engineer Name Role Phone Uday Sheehan MD Primary Care Provider [phone] Encounter Details Date Type Department Care Team (Late st Contact Info) Description 06/11/2024 Lab Requisition [facility] - Main Lab [address] [facility] [place] [address] Zak Zuluaga MD [address] [place] [address] Anemia, unspecified Social History Tobacco Use Types [...] Associated Diagnosis Comments COMPLETE BLOOD COUNT Routine 06/11/2024 8:24 AM EST Anemia, unspecified BASIC METABOLIC PANEL Routine 06/11/2024 8:24 AM EST Anemia, unspecified documented in this encounter Results * (ABNORMAL) Basic metabolic panel (06/11/2024 8:24 AM EST) Sodium 145 133 - 145 mmol/L LAB CHEMISTRY METHOD 06/11/2024 10:54 AM EST [facility] Potassium 4.4 3.5 - 5.5 mmol/L LAB CHEMISTRY METHOD 06/11/2024 10:54 AM EST [facility] Chloride 112(H) 96 - 110 mmol/L LAB CHEMISTRY METHOD 06/11/2024 10:54 AM [facility] CO2 23 21 - 32 mmol/L LAB CHEMISTRY METHOD 06/11/2024 10:54 AM [facility] Anion Gap 10 3 - 11 LAB CHEMISTRY METHOD 06/11/2024 10:54 AM [facility] Glucose 88 70 - 100 mg/dL LAB CHEMISTRY METHOD 06/11/2024 10:54 AM [facility] BUN 42(H) 5 - 25 mg/dL LAB CHEMISTRY METHOD 06/11/2024 10:54 AM [facility] Creatinine 2.55(H) 0.70 - 1.30 mg/dL LAB CHEMISTRY METHOD 06/11/2024 10:54 AM [facility] eGFR 24(L) >=60 mL/min/1. 73m2 LAB CHEMISTRY METHOD 06/11/2024 10:54 AM [facility] Comment:Calculation based on the??Chronic Kidney Disease Epidemiology Collaboration (CKD-EPI) equation refit??without adjustment for race. BUN/Creatinine Ratio 16.5 LAB CHEMISTRY METHOD 06/11/2024 10:54 AM [facility] Calcium 7.9(L) 8.5 - 10.5 mg/dL LAB CHEMISTRY METHOD 06/11/2024 10:54 AM [facility] Blood Venous blood specimen / Unknown Venipuncture / Unknown 06/11/2024 8:24 AM EST 06/11/2024 9:58 AM EST us Zak Zuluaga MD LAB BLOOD ORDERABLES Final Resul t [facility] [address] [place] [address], [place] [phone] * (ABNORMAL) Complete blood count (06/11/2024 8:24 AM EST) WBC 5.5 4.8 - 10.8 K/mcL LAB HEMETOLOGY METHOD 06/11/2024 10:35 AM [facility] RBC 2.90(L) 4.50 - 5.50 M/mcL LAB HEMETOLOGY METHOD 06/11/2024 10:35 AM [facility] Hemoglobin 7.7(L) 13.5 - 17.5 g/dL LAB HEMETOLOGY METHOD 06/11/2024 10:35 AM [facility] Hematocrit 25.5(L) 42.0 - 54.0 % LAB HEMETOLOGY METHOD 06/11/2024 10:35 AM [facility] MCV 87.6 79.0 - 98.0 FL LAB HEMETOLOGY METHOD 06/11/2024 10:35 AM [facility] MCH 26.5(L) 27.0 - 32.0 pcg LAB HEMETOLOGY METHOD 06/11/2024 10:35 AM [facility] MCHC 30.2(L) 32.0 - 37.0 g/dL LAB HEMETOLOGY METHOD 06/11/2024 10:35 AM [facility] RDW 16.7(H) 11.0 - 15.0 % LAB HEMETOLOGY METHOD 06/11/2024 10:35 AM [facility] Platelets 176 130 - 400 K/mcL LAB HEMETOLOGY METHOD 06/11/2024 10:35 AM [facility] MPV 10.7 7.0 - 11.0 FL LAB HEMETOLOGY METHOD 06/11/2024 10:35 AM [facility] NRBC 0.0 <1.0 % LAB HEMETOLOGY METHOD 06/11/2024 10:35 AM [facility] NRBC Absolute 0.00 <0.10 K/mcL LAB HEMETOLOGY METHOD 06/11/2024 10:35 AM [facility] Blood Venous blood specimen / Unknown Venipuncture / Unknown 06/11/2024 8:24 AM EST 06/11/2024 9:58 AM EST Zak Zuluaga MD LAB BLOOD ORDERABLES Final Resul t [facility] ([facility] [address] [place] [address], documented in this encounter Visit Diagnoses Diagnosis Anemia, unspecified documented in this encounter Additional Health Concerns Infection Onset Date Last Indicated Resolved Time ESBL 06/22/2024 06/22/2024 documented as of this encounter Care Teams Hydraulic Engineer Relationship Specialty Start Date End Date Uday Sheehan MD [address] [place] [address] Dr Donna [place] PCP - General Editor At Large 12/19/16 documented as of this encounter
--- OUTSIDE RECORDS SUMMARY | 2024-08-20 13:15 | XMS_ITS | Encounter Summary ---
Author Organization [facility] Address [address] [place] [address] Care Team Providers Care Roll Cleaner Name Role Phone Uday Sheehan MD Primary Care Provider [phone] Encounter Details Date Type Department Care Team (Late st Contact Info) Description 07/19/2024 Lab Requisition [facility] - Main Lab [address] [facility] [place] [address] Tabby Bledsoe MD [address] [address] Bacteremia Social History Tobacco Use Types Packs/Day [...] Associated Diagnosis Comments COMPLETE BLOOD COUNT Routine 07/22/2024 7:38 AM EST Bacteremia COMPREHENSIVE METABOLIC PANEL Routine 07/22/2024 7:38 AM EST Bacteremia documented in this encounter Results * (ABNORMAL) Comprehensive metabolic panel (07/22/2024 7:38 AM EST) Sodium 143 133 - 145 mmol/L LAB CHEMISTRY METHOD 07/22/2024 10:29 AM EST [facility] Potassium 4.3 3.5 - 5.5 mmol/L LAB CHEMISTRY METHOD 07/22/2024 10:29 AM EST [facility] Chloride 107 96 - 110 mmol/L LAB CHEMISTRY METHOD 07/22/2024 10:29 AM [facility] CO2 31 21 - 32 mmol/L LAB CHEMISTRY METHOD 07/22/2024 10:29 AM [facility] Anion Gap 5 3 - 11 LAB CHEMISTRY METHOD 07/22/2024 10:29 AM [facility] Glucose 87 70 - 100 mg/dL LAB CHEMISTRY METHOD 07/22/2024 10:29 AM [facility] BUN 24 5 - 25 mg/dL LAB CHEMISTRY METHOD 07/22/2024 10:29 AM [facility] Creatinine 2.18(H) 0.70 - 1.30 mg/dL LAB CHEMISTRY METHOD 07/22/2024 10:29 AM [facility] eGFR 29(L) >=60 mL/min/1. 73m2 LAB CHEMISTRY METHOD 07/22/2024 10:29 AM [facility] Comment:Calculation based on the??Chronic Kidney Disease Epidemiology Collaboration (CKD-EPI) equation refit??without adjustment for race. BUN/Creatinine Ratio 11.0 LAB CHEMISTRY METHOD 07/22/2024 10:29 AM [facility] Calcium 9.5 8.5 - 10.5 mg/dL LAB CHEMISTRY METHOD 07/22/2024 10:29 AM [facility] AST (SGOT) 14 10 - 42 unit/L LAB CHEMISTRY METHOD 07/22/2024 10:29 AM [facility] ALT (SGPT) 12 10 - 60 unit/L LAB CHEMISTRY METHOD 07/22/2024 10:29 AM [facility] Alkaline Phosphatase 92 42 - 121 unit/L LAB CHEMISTRY METHOD 07/22/2024 10:29 AM [facility] Total Protein 5.6(L) 6.0 - 8.0 g/dL LAB CHEMISTRY METHOD 07/22/2024 10:29 AM [facility] Albumin 1.6(L) 3.2 - 5.0 g/dL LAB CHEMISTRY METHOD 07/22/2024 10:29 AM [facility] Total Bilirubin 0.3 0.0 - 1.4 mg/dL LAB CHEMISTRY METHOD 07/22/2024 10:29 AM [facility] Blood Venous blood specimen / Unknown Venipuncture / Unknown 07/22/2024 7:38 AM EST 07/22/2024 9:41 AM EST us Tabby Bledsoe MD LAB BLOOD ORDERABLES Fin al Result [facility] [address] [place] [address], * (ABNORMAL) Complete blood count (07/22/2024 7:38 AM EST) WBC 5.4 4.8 - 10.8 K/mcL LAB HEMETOLOGY METHOD 07/22/2024 10:01 AM [facility] RBC 2.90(L) 4.50 - 5.50 M/mcL LAB HEMETOLOGY METHOD 07/22/2024 10:01 AM [facility] Hemoglobin 7.5(L) 13.5 - 17.5 g/dL LAB HEMETOLOGY METHOD 07/22/2024 10:01 AM [facility] Hematocrit 25.6(L) 42.0 - 54.0 % LAB HEMETOLOGY METHOD 07/22/2024 10:01 AM [facility] MCV 88.3 79.0 - 98.0 FL LAB HEMETOLOGY METHOD 07/22/2024 10:01 AM [facility] MCH 25.9(L) 27.0 - 32.0 pcg LAB HEMETOLOGY METHOD 07/22/2024 10:01 AM [facility] MCHC 29.3(L) 32.0 - 37.0 g/dL LAB HEMETOLOGY METHOD 07/22/2024 10:01 AM EST [facility] RDW 19.0(H) 11.0 - 15.0 % LAB HEMETOLOGY METHOD 07/22/2024 10:01 AM EST [facility] Platelets 259 130 - 400 K/mcL LAB HEMETOLOGY METHOD 07/22/2024 10:01 AM [facility] MPV 9.3 7.0 - 11.0 FL LAB HEMETOLOGY METHOD 07/22/2024 10:01 AM EST [facility] NRBC 0.0 <1.0 % LAB HEMETOLOGY METHOD 07/22/2024 10:01 AM [facility] NRBC Absolute 0.00 <0.10 K/mcL LAB HEMETOLOGY METHOD 07/22/2024 10:01 AM [facility] Blood Venous blood specimen / Unknown Venipuncture / Unknown 07/22/2024 7:38 AM EST 07/22/2024 9:41 AM EST us Tabby Bledsoe MD LAB BLOOD ORDERABLES Fin al Result [facility] [address] [place] [address], documented in this encounter Visit Diagnoses Diagnosis Bacteremia documented in this encounter Additional Health Concerns Infection Onset Date Last Indicated Resolved Time ESBL 06/22/2024 06/22/2024 documented as of this encounter Care Teams Roll Cleaner Relationship Specialty Start Date End Date Uday Sheehan MD [address] [place] [address] Dr Donna [place] PCP - General Software Writer 12/19/16 documented as of this encounter
--- OUTSIDE RECORDS SUMMARY | 2024-08-20 13:15 | XMS_ITS | Encounter Summary ---
Author Organization [facility] Address [address] [place] [address] Care Team Providers Care Scrap Separator Name Role Phone Uday Sheehan Primary Care Provider [phone] Encounter Details Date Type Department Care Team (Late st Contact Info) Description 03/24/2024 Lab Requisition [facility] [address] [place] [address] Cecilio Bautista PA [address] [place] [address] Acute respiratory failure with hypoxia (HCC); No diagnosis [...] of this encounter Procedures * Due to [place] [employer] law, this organization might not be sharing negative HIV tests. Procedure Name Priority Date/Time Associated Diagnosis Comments CBC AUTO DIFFERENTIAL Routine 03/24/2024 7:34 AM EDT Acute respiratory failure with hypoxia (HCC) No diagnosis documented in this encounter Results * Due to [place] [employer] law, this organization might not be sharing negative HIV tests. * (ABNORMAL) CBC Auto Differential (03/24/2024 7:34 AM EDT) [facility] WBC 9.2 4.8 - 10.8 10*3/uL 03/24/2024 10:37 AM EDT [facility] RBC 2.51(L) 4.70 - 6.10 10*6/uL 03/24/2024 10:37 AM EDT [facility] Hemoglobin 7.0(L) 13.7 - 16.5 g/dL 03/24/2024 10:37 AM EDT [facility] Hematocrit 22.5(L) 40.5 - 48.5 % 03/24/2024 10:37 AM EDT [facility] MCV 89.6 80.0 - 94.0 fL 03/24/2024 10:37 AM EDT [facility] MCH 27.9 26.0 - 34.0 pg 03/24/2024 10:37 AM EDT [facility] MCHC 31.1 31.0 - 36.0 g/dL 03/24/2024 10:37 AM EDT [facility] RDW 16.0(H) 12.0 - 15.0 % 03/24/2024 10:37 AM EDT [facility] RDW Standard Deviation 51.7(H) 35.1 - 43.9 fL 03/24/2024 10:37 AM EDT [facility] Platelets 186 140 - 440 10*3/uL 03/24/2024 10:37 AM EDT [facility] MPV 10.3 9.4 - 12.4 fL 03/24/2024 10:37 AM EDT [facility] Neutrophil % 59.1 50.0 - 75.0 % 03/24/2024 10:37 AM EDT [facility] Immature Grans % 0.3 0.0 - 0.9 % 03/24/2024 10:37 AM EDT [facility] Lymphocyte % 19.6(L) 20.0 - 44.0 % 03/24/2024 10:37 AM EDT [facility] Monocyte % 15.5(H) 0.0 - 14.0 % 03/24/2024 10:37 AM EDT [facility] Eosinophil % 4.8 0.0 - 5.0 % 03/24/2024 10:37 AM EDT [facility] Basophil % 0.7 0.0 - 2.0 % 03/24/2024 10:37 AM EDT [facility] Neutrophil # 5.45 1.80 - 7.70 10*3/uL 03/24/2024 10:37 AM EDT [facility] Immature Grans # 0.03 0.00 - 0.03 10*3/uL 03/24/2024 10:37 AM EDT [facility] Lymphocyte # 1.80 1.00 - 4.75 10*3/uL 03/24/2024 10:37 AM EDT [facility] Monocyte # 1.40 0.00 - 6.00 10*3/uL 03/24/2024 10:37 AM EDT [facility] Eosinophil # 0.40 0.00 - 0.80 10*3/uL 03/24/2024 10:37 AM EDT [facility] Basophil # 0.10 0.00 - 0.20 10*3/uL 03/24/2024 10:37 AM EDT [facility] nRBC % 0.0 0 - 0 /100 WBCs 03/24/2024 10:37 AM EDT [facility] nRBC # <0.01 0.00 - 0.13 10*3/uL 03/24/2024 10:37 AM EDT [facility] Blood Structure of peripheral vein / Unknown Venipuncture / Unknown 03/24/2024 7:34 AM EDT 03/24/2024 10:31 AM EDT us Cecilio ZHU LAB BLOOD ORDERABLES Final R esult [facility] [address] [place] [address] [address] [place] [address], [place] [phone] documented in this encounter Visit Diagnoses Diagnosis Acute respiratory failure with hypoxia (HCC) No diagnosis documented in this encounter Additional Health Concerns Infection Onset Date Last Indicated Resolved Time 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
--- OUTSIDE RECORDS SUMMARY | 2024-08-20 13:15 | XMS_ITS | Encounter Summary ---
Author Organization [facility] Address [address] [place] [address] Care Team Providers Care Supervisor Show Operations Name Role Phone Uday Sheehan Primary Care Provider [phone] Encounter Details Date Type Department Care Team (Late st Contact Info) Description 04/09/2024 Lab Requisition [facility] [address] [place] [address] Salo Whyte MD [address] [place] [address] Acute respiratory failure with hypoxia (HCC); No [...] this encounter Procedures * Due to [place] state law, this organization might not be sharing negative HIV tests. Procedure Name Priority Date/Time Associated Diagnosis Comments N-TERMINAL PROBRAIN NATRIURETIC PEPTIDE Routine 04/09/2024 8:51 AM EDT Acute respiratory failure with hypoxia (HCC) No diagnosis CBC AUTO DIFFERENTIAL Routine 04/09/2024 8:51 AM EDT Acute respiratory failure with hypoxia (HCC) No diagnosis TSH Routine 04/09/2024 8:51 AM EDT Acute respiratory failure with hypoxia (HCC) No diagnosis T4, FREE Routine 04/09/2024 8:51 AM EDT Acute respiratory failure with hypoxia (HCC) No diagnosis MAGNESIUM Routine 04/09/2024 8:51 AM EDT Acute respiratory failure with hypoxia (HCC) No diagnosis HEMOGLOBIN A1C Routine 04/09/2024 8:51 AM EDT Acute respiratory failure with hypoxia (HCC) No diagnosis VITAMIN B12 Routine 04/09/2024 8:51 AM EDT Acute respiratory failure with hypoxia (HCC) No diagnosis AMMONIA Routine 04/09/2024 8:51 AM EDT Acute respiratory failure with hypoxia (HCC) No diagnosis COMPREHENSIVE METABOLIC PANEL Routine 04/09/2024 8:51 AM EDT Acute respiratory failure with hypoxia (HCC) No diagnosis documented in this encounter Results * Due to [place] state law, this organization might not be sharing negative HIV tests. * N-terminal ProBrain Natriuretic Peptide - [facility]/[place] Only (04/09/2024 8:51 AM EDT) Pro-B-Type Natriuretic Peptide 523 <=1,800 pg/mL 04/09/2024 9:31 AM EDT [facility] Comment: RULE IN CHF >/= 450 pg/mL for patients <50 years old RULE IN CHF >/= 900 pg/mL for patients 50-75 years old RULE IN CHF >/= 1800 pg/mL for patients >75 years old RULE OUT CHF </= 300 pg/mL (not age specific) Blood Structure of peripheral vein / Unknown Venipuncture / Unknown 04/09/2024 8:51 AM EDT 04/09/2024 9:09 AM EDT us Salo Whyte MD LAB BLOOD ORDERABLES Final Result Performing Organization Address [facility]/ZIP Co de Phone Number [facility] [address] [address], [place] [phone] * Vitamin B12 (04/09/2024 8:51 AM EDT) Vitamin B12 636 232 - 1,245 pg/mL 04/09/2024 9:42 AM EDT [facility] Blood Structure of peripheral vein / Unknown Venipuncture / Unknown 04/09/2024 8:51 AM EDT 04/09/2024 8:52 AM EDT us Salo Whyte MD LAB BLOOD ORDERABLES Final Result Performing Organization Address [facility] Co de Phone Number [facility] [address] [address], [place] [phone] * (ABNORMAL) CBC Auto Differential (04/09/2024 8:51 AM EDT) WBC 8.3 4.8 - 10.8 10*3/uL 04/09/2024 9:14 AM EDT [facility] RBC 2.86(L) 4.70 - 6.10 10*6/uL 04/09/2024 9:14 AM EDT [facility] Hemoglobin 8.0(L) 13.7 - 16.5 g/dL 04/09/2024 9:14 AM EDT [facility] Hematocrit 25.7(L) 40.5 - 48.5 % 04/09/2024 9:14 AM EDT [facility] MCV 89.9 80.0 - 94.0 fL 04/09/2024 9:14 AM EDT [facility] MCH 28.0 26.0 - 34.0 pg 04/09/2024 9:14 AM EDT [facility] MCHC 31.1 31.0 - 36.0 g/dL 04/09/2024 9:14 AM EDT [facility] RDW 17.2(H) 12.0 - 15.0 % 04/09/2024 9:14 AM EDT [facility] RDW Standard Deviation 54.8(H) 35.1 - 43.9 fL 04/09/2024 9:14 AM EDT [facility] Platelets 228 140 - 440 10*3/uL 04/09/2024 9:14 AM EDT [facility] MPV 10.8 9.4 - 12.4 fL 04/09/2024 9:14 AM EDT [facility] Neutrophil % 58.2 50.0 - 75.0 % 04/09/2024 9:14 AM EDT [facility] Immature Grans % 0.7 0.0 - 0.9 % 04/09/2024 9:14 AM EDT [facility] Lymphocyte % 22.1 20.0 - 44.0 % 04/09/2024 9:14 AM EDT [facility] Monocyte % 11.3 0.0 - 14.0 % 04/09/2024 9:14 AM EDT [facility] Eosinophil % 7.1(H) 0.0 - 5.0 % 04/09/2024 9:14 AM EDT [facility] Basophil % 0.6 0.0 - 2.0 % 04/09/2024 9:14 AM EDT [facility] Neutrophil # 4.85 1.80 - 7.70 10*3/uL 04/09/2024 9:14 AM EDT [facility] Immature Grans # 0.06(H) 0.00 - 0.03 10*3/uL 04/09/2024 9:14 AM EDT [facility] Lymphocyte # 1.80 1.00 - 4.75 10*3/uL 04/09/2024 9:14 AM EDT [facility] Monocyte # 0.90 0.00 - 6.00 10*3/uL 04/09/2024 9:14 AM EDT [facility] Eosinophil # 0.60 0.00 - 0.80 10*3/uL 04/09/2024 9:14 AM EDT [facility] Basophil # 0.10 0.00 - 0.20 10*3/uL 04/09/2024 9:14 AM EDT [facility] nRBC % 0.0 0 - 0 /100 WBCs 04/09/2024 9:14 AM EDT [facility] nRBC # <0.01 0.00 - 0.13 10*3/uL 04/09/2024 9:14 AM EDT [facility] Blood Structure of peripheral vein / Unknown Venipuncture / Unknown 04/09/2024 8:51 AM EDT 04/09/2024 8:52 AM EDT us Salo Whyte MD LAB BLOOD ORDERABLES Final Result Performing Organization Address [facility]/ZIP Co de Phone Number [facility] [address] [address], [place] [phone] * (ABNORMAL) TSH (04/09/2024 8:51 AM EDT) TSH 10.800(H) 0.270 - 4.200 uIU/mL 04/09/2024 9:34 AM EDT [facility] Blood Structure of peripheral vein / Unknown Venipuncture / Unknown 04/09/2024 8:51 AM EDT 04/09/2024 8:52 AM EDT us Salo Whyte MD LAB BLOOD ORDERABLES Final Result Performing Organization Address City/[facility]/ZIP Co de Phone Number [facility] [address] [address], [place] [phone] * T4, Free (04/09/2024 8:51 AM EDT) Free T4 1.40 0.80 - 1.80 ng/dL 04/09/2024 9:34 AM EDT [facility] Comment: Females: (ng/dL) First Trimester [...] peripheral vein / Unknown Venipuncture / Unknown 04/09/2024 8:51 AM EDT 04/09/2024 8:52 AM EDT Salo Whyte MD LAB BLOOD ORDERABLES Final Result Performing Organization Address [facility]/ZIP Co de Phone Number [facility] [address] [address], [place] [phone] * Magnesium (04/09/2024 8:51 AM EDT) MG 2.5 1.5 - 2.5 mg/dL 04/09/2024 9:34 AM EDT [facility] Blood Structure of peripheral vein / Unknown Venipuncture / Unknown 04/09/2024 8:51 AM EDT 04/09/2024 8:52 AM EDT Salo Whyte MD LAB BLOOD ORDERABLES Final Result Performing Organization Address [facility]/ZIP Co de Phone Number [facility] [address] [address], [place] [phone] * Hemoglobin A1c (04/09/2024 8:51 AM EDT) Hemoglobin A1c 5.6 4.0 - 5.7 % 04/09/2024 9:25 AM EDT [facility] Estimated Average Glucose 114 mg/dL 04/09/2024 9:25 AM EDT [facility] Blood Structure of peripheral vein / Unknown Venipuncture / Unknown 04/09/2024 8:51 AM EDT 04/09/2024 8:52 AM EDT us Salo Whyte MD LAB BLOOD ORDERABLES Final Result Performing Organization Address [facility] Co de Phone Number [facility] [address] [address], [place] [phone] * Ammonia (04/09/2024 8:51 AM EDT) Ammonia 20 16 - 60 umol/L 04/09/2024 9:24 AM EDT [facility] Blood Structure of peripheral vein / Unknown Venipuncture / Unknown 04/09/2024 8:51 AM EDT 04/09/2024 8:52 AM EDT Salo Whyte MD LAB BLOOD ORDERABLES Final Result Performing Organization Address [facility] de Phone Number [facility] [address] [address], [place] [phone] * (ABNORMAL) Comprehensive Metabolic Panel (04/09/2024 8:51 AM EDT) NA 144 136 - 145 mmol/L 04/09/2024 9:34 AM EDT [facility] K 4.0 3.5 - 5.1 mmol/L 04/09/2024 9:34 AM EDT [facility] Cl 104 98 - 109 mmol/L 04/09/2024 9:34 AM EDT [facility] CO2 32 22 - 32 mmol/L 04/09/2024 9:34 AM EDT [facility] Anion Gap 12 >=0 04/09/2024 9:34 AM EDT [facility] Glucose 96 60 - 99 mg/dL 04/09/2024 9:34 AM EDT [facility] Creatinine 1.30(H) 0.50 - 1.12 mg/dL 04/09/2024 9:34 AM EDT [facility] Calcium 9.7 8.4 - 10.4 mg/dL 04/09/2024 9:34 AM EDT [facility] Total Protein 6.8 6.6 - 8.7 g/dL 04/09/2024 9:34 AM EDT [facility] Albumin 3.1(L) 3.5 - 5.0 g/dL 04/09/2024 9:34 AM EDT [facility] Bilirubin, Total 0.2 0.2 - 1.2 mg/dL 04/09/2024 9:34 AM EDT [facility] Alkaline Phosphatase 85 40 - 129 U/L 04/09/2024 9:34 AM EDT [facility] AST 40 0 - 40 U/L 04/09/2024 9:34 AM [facility] ALT 28 <=41 U/L 04/09/2024 9:34 AM T [facility] BUN 56(H) 8 - 23 mg/dL 04/09/2024 9:34 AM [facility] eGFR 54(L) >=60 mL/min/1. 73m2 04/09/2024 9:34 AM EDT [facility] Comment:The estimated glomer ular filtration [...] in Diagnosing Kidney Disease . Globulin, Total 3.7 2.1 - 4.2 g/dL 04/09/2024 9:34 AM EDT [facility] A/G Ratio 0.8(L) 1.5 - 3.0 04/09/2024 9:34 AM EDT [facility] Blood Structure of peripheral vein / Unknown Venipuncture / Unknown 04/09/2024 8:51 AM EDT 04/09/2024 8:52 AM EDT Salo Whyte MD LAB BLOOD ORDERABLES Final Result Performing Organization Address City/State/[facility] Co de Phone Number [facility] [address] [place] [address], documented in this encounter Visit Diagnoses Diagnosis Acute respiratory failure with hypoxia (HCC) No diagnosis documented in this encounter Additional Health Concerns Infection Onset Date Last Indicated Resolved Time 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
--- OUTSIDE RECORDS SUMMARY | 2024-08-20 13:15 | XMS_ITS | Encounter Summary ---
Author Organization [facility] Address [address] [place] [address] Care Team Providers Care Platform Inspector Name Role Phone Uday Sheehan Primary Care Provider [phone] Encounter Details Date Type Department Care Team (Late st Contact Info) Description 05/07/2024 Lab Requisition [facility] [address] [place] [id number] Isabell Robert [address] [address] Acute and chronic respiratory failure with hypoxia [...] as of this encounter Visit Diagnoses Diagnosis Acute and chronic respiratory failure with hypoxia (HCC) No diagnosis documented in this encounter Additional Health Concerns Infection Onset Date Last Indicated Resolved Time 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
--- OUTSIDE RECORDS SUMMARY | 2024-08-20 13:15 | XMS_ITS | Encounter Summary ---
Author Organization [facility] Address [address] [place] [address] Care Team Providers Care Supervisor Shuttle Preparation Name Role Phone Uday Sheehan Primary Care Provider Encounter Details Date Type Department Care Team (Late st Contact Info) Description 04/11/2024 Lab Requisition [facility] [address] [place] [address] Salo Whyte MD [address] [place] [address] Acute and chronic respiratory failure with hypoxia [...] of this encounter Procedures * Due to [place] state law, this organization might not be sharing negative HIV tests. Procedure Name Priority Date/Time Associated Diagnosis Comments CBC AUTO DIFFERENTIAL Routine 04/11/2024 10:41 AM EDT Acute and chronic respiratory failure with hypoxia (HCC) No diagnosis BASIC METABOLIC PANEL Routine 04/11/2024 10:41 AM EDT Acute and chronic respiratory failure with hypoxia (HCC) No diagnosis documented in this encounter Results * Due to [place] state law, this organization might not be sharing negative HIV tests. * (ABNORMAL) CBC Auto Differential (04/11/2024 10:41 AM EDT) WBC 8.0 4.8 - 10.8 10*3/uL 04/11/2024 11:04 AM EDT [facility] RBC 2.95(L) 4.70 - 6.10 10*6/uL 04/11/2024 11:04 AM EDT [facility] Hemoglobin 8.0(L) 13.7 - 16.5 g/dL 04/11/2024 11:04 AM EDT [facility] Hematocrit 26.3(L) 40.5 - 48.5 % 04/11/2024 11:04 AM EDT [facility] MCV 89.2 80.0 - 94.0 fL 04/11/2024 11:04 AM EDT [facility] MCH 27.1 26.0 - 34.0 pg 04/11/2024 11:04 AM EDT [facility] MCHC 30.4(L) 31.0 - 36.0 g/dL 04/11/2024 11:04 AM EDT [facility] RDW 17.3(H) 12.0 - 15.0 % 04/11/2024 11:04 AM EDT [facility] RDW Standard Deviation 54.4(H) 35.1 - 43.9 fL 04/11/2024 11:04 AM EDT [facility] Platelets 226 140 - 440 10*3/uL 04/11/2024 11:04 AM EDT [facility] MPV 10.2 9.4 - 12.4 fL 04/11/2024 11:04 AM EDT [facility] Neutrophil % 62.6 50.0 - 75.0 % 04/11/2024 11:04 AM EDT [facility] Immature Grans % 0.8 0.0 - 0.9 % 04/11/2024 11:04 AM EDT [facility] Lymphocyte % 21.4 20.0 - 44.0 % 04/11/2024 11:04 AM EDT [facility] Monocyte % 10.4 0.0 - 14.0 % 04/11/2024 11:04 AM EDT [facility] Eosinophil % 4.3 0.0 - 5.0 % 04/11/2024 11:04 AM EDT [facility] Basophil % 0.5 0.0 - 2.0 % 04/11/2024 11:04 AM EDT [facility] Neutrophil # 5.02 1.80 - 7.70 10*3/uL 04/11/2024 11:04 AM EDT [facility] Immature Grans # 0.06(H) 0.00 - 0.03 10*3/uL 04/11/2024 11:04 AM EDT [facility] Lymphocyte # 1.70 1.00 - 4.75 10*3/uL 04/11/2024 11:04 AM EDT [facility] Monocyte # 0.80 0.00 - 6.00 10*3/uL 04/11/2024 11:04 AM EDT [facility] Eosinophil # 0.30 0.00 - 0.80 10*3/uL 04/11/2024 11:04 AM EDT [facility] Basophil # <0.03 0.00 - 0.20 10*3/uL 04/11/2024 11:04 AM EDT [facility] nRBC % 0.0 0 - 0 /100 WBCs 04/11/2024 11:04 AM EDT [facility] nRBC # <0.01 0.00 - 0.13 10*3/uL 04/11/2024 11:04 AM EDT [facility] Blood Structure of peripheral vein / Unknown Venipuncture / Unknown 04/11/2024 10:41 AM EDT 04/11/2024 10:41 AM EDT us Salo Lyubchik MD LAB BLOOD ORDERABLES Final Result [facility] [address] [place] [address], * (ABNORMAL) Basic Metabolic Panel (04/11/2024 10:41 AM EDT) NA 141 136 - 145 mmol/L 04/11/2024 11:19 AM EDT [facility] K 3.8 3.5 - 5.1 mmol/L 04/11/2024 11:19 AM EDT [facility] Cl 100 98 - 109 mmol/L 04/11/2024 11:19 AM EDT [facility] CO2 32 22 - 32 mmol/L 04/11/2024 11:19 AM EDT [facility] BUN 45(H) 8 - 23 mg/dL 04/11/2024 11:19 AM EDT [facility] Creatinine 1.10 0.50 - 1.12 mg/dL 04/11/2024 11:19 AM EDT [facility] Glucose 106(H) 60 - 99 mg/dL 04/11/2024 11:19 AM EDT [facility] Calcium 9.3 8.4 - 10.4 mg/dL 04/11/2024 11:19 AM EDT [facility] Anion Gap 13 >=0 04/11/2024 11:19 AM EDT [facility] eGFR 66 >=60 mL/min/1. 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
--- OUTSIDE RECORDS SUMMARY | 2024-08-20 13:15 | XMS_ITS | Encounter Summary ---
Author Organization [facility] Address [address] [place] [address] Care Team Providers Care Director Metabolism Name Role Phone Uday Sheehan MD Primary Care Provider [phone] Encounter Details Date Type Department Care Team (Late st Contact Info) Description 06/05/2024 Lab Requisition [facility] [address] [place] [address] Natanael Rodney MD [address] [place] [address] [place] [address] Chronic kidney disease, unspecified; Essential (primary) hypertension; Unspecified atrial fibrillation [...] Associated Diagnosis Comments COMPLETE BLOOD COUNT Routine 06/05/2024 8:53 AM EST Chronic kidney disease, unspecified Essential (primary) hypertension Unspecified atrial fibrillation (CMS/HCC) documented in this encounter Results * (ABNORMAL) Complete blood count (06/05/2024 8:53 AM EST) WBC 7.2 4.8 - 10.8 [facility] HEMETOLOGY METHOD 06/05/2024 11:10 AM EST [facility] RBC 2.70(L) 4.50 - 5.50 [facility] HEMETOLOGY METHOD 06/05/2024 11:10 AM [facility] Hemoglobin 7.3(L) 13.5 - 17.5 g/dL LAB HEMETOLOGY METHOD 06/05/2024 11:10 AM [facility] Hematocrit 23.8(L) 42.0 - 54.0 % LAB HEMETOLOGY METHOD 06/05/2024 11:10 AM [facility] MCV 87.8 79.0 - 98.0 [place] LAB HEMETOLOGY METHOD 06/05/2024 11:10 AM [facility] MCH 26.9(L) 27.0 - 32.0 pcg LAB HEMETOLOGY METHOD 06/05/2024 11:10 AM [facility] MCHC 30.7(L) 32.0 - 37.0 g/dL LAB HEMETOLOGY METHOD 06/05/2024 11:10 AM [facility] RDW 16.7(H) 11.0 - 15.0 % LAB HEMETOLOGY METHOD 06/05/2024 11:10 AM [facility] Platelets 172 130 - 400 K/mcL LAB HEMETOLOGY METHOD 06/05/2024 11:10 AM [facility] MPV 10.1 7.0 - 11.0 [place] LAB HEMETOLOGY METHOD 06/05/2024 11:10 AM [facility] NRBC 0.0 <1.0 % LAB HEMETOLOGY METHOD 06/05/2024 11:10 AM [facility] NRBC Absolute 0.00 <0.10 K/mcL LAB HEMETOLOGY METHOD 06/05/2024 11:10 AM [facility] Blood Venous blood specimen / Unknown Venipuncture / Unknown 06/05/2024 8:53 AM EST 06/05/2024 10:47 AM EST Natanael Rodney MD LAB BLOOD ORDERABLES Final Resu lt [facility] [address] [place] [address], documented in this encounter Visit Diagnoses Diagnosis Chronic kidney disease, unspecified Essential (primary) hypertension Unspecified essential hypertension Unspecified atrial fibrillation (CMS/HCC) documented in this encounter Additional Health Concerns Infection Onset Date Last Indicated Resolved Time ESBL 06/22/2024 06/22/2024 documented as of this encounter Care Teams Director Metabolism Relationship Specialty Start Date End Date Uday Sheehan MD [address] [place] [address] Dr Aliciayogilson [place] PCP - General Spray Gunner 12/19/16 documented as of this encounter
--- OUTSIDE RECORDS SUMMARY | 2024-08-20 13:15 | XMS_ITS | Encounter Summary ---
Author Organization [facility] Address [address] [place] [address] Care Team Providers Care Transportation Sales Consultant Name Role Phone Uday Sheehan MD Primary Care Provider [phone] Encounter Details Date Type Department Care Team (Late st Contact Info) Description 06/15/2024 Lab Requisition [facility] - Main Lab [address] [facility] [place] [address] Zak Zuluaga MD [address] [place] [address] Unspecified atrial fibrillation (CMS/HCC); Essential (primary) hypertension Social History Tobacco Use Types Packs/Day Years [...] Associated Diagnosis Comments COMPLETE BLOOD COUNT Routine 06/17/2024 6:45 AM EST Unspecified atrial fibrillation (CMS/HCC) Essential (primary) hypertension COMPREHENSIVE METABOLIC PANEL Routine 06/17/2024 6:45 AM EST Unspecified atrial fibrillation (CMS/HCC) Essential (primary) hypertension documented in this encounter Results * (ABNORMAL) Comprehensive metabolic panel (06/17/2024 6:45 AM EST) Sodium 145 133 - 145 mmol/L LAB CHEMISTRY METHOD 06/17/2024 10:19 AM EST [facility] Potassium 4.7 3.5 - 5.5 mmol/L LAB CHEMISTRY METHOD 06/17/2024 10:19 AM [facility] Chloride 113(H) 96 - 110 mmol/L LAB CHEMISTRY METHOD 06/17/2024 10:19 AM [facility] CO2 24 21 - 32 mmol/L LAB CHEMISTRY METHOD 06/17/2024 10:19 AM [facility] Anion Gap 8 3 - 11 LAB CHEMISTRY METHOD 06/17/2024 10:19 AM [facility] Glucose 86 70 - 100 mg/dL LAB CHEMISTRY METHOD 06/17/2024 10:19 AM [facility] BUN 41(H) 5 - 25 mg/dL LAB CHEMISTRY METHOD 06/17/2024 10:19 AM [facility] Creatinine 2.95(H) 0.70 - 1.30 mg/dL LAB CHEMISTRY METHOD 06/17/2024 10:19 AM [facility] eGFR 20(L) >=60 mL/min/1. 73m2 LAB CHEMISTRY METHOD 06/17/2024 10:19 AM [facility] Comment:Calculation based on the??Chronic Kidney Disease Epidemiology Collaboration (CKD-EPI) equation refit??without adjustment for race. BUN/Creatinine Ratio 13.9 LAB CHEMISTRY METHOD 06/17/2024 10:19 AM [facility] Calcium 8.5 8.5 - 10.5 mg/dL LAB CHEMISTRY METHOD 06/17/2024 10:19 AM [facility] AST (SGOT) 50(H) 10 - 42 unit/L LAB CHEMISTRY METHOD 06/17/2024 10:19 AM [facility] ALT (SGPT) 59 10 - 60 unit/L LAB CHEMISTRY METHOD 06/17/2024 10:19 AM [facility] Alkaline Phosphatase 99 42 - 121 unit/L LAB CHEMISTRY METHOD 06/17/2024 10:19 AM [facility] Total Protein 5.9(L) 6.0 - 8.0 g/dL LAB CHEMISTRY METHOD 06/17/2024 10:19 AM [facility] Albumin 1.7(L) 3.2 - 5.0 g/dL LAB CHEMISTRY METHOD 06/17/2024 10:19 AM [facility] Total Bilirubin 0.6 0.0 - 1.4 mg/dL LAB CHEMISTRY METHOD 06/17/2024 10:19 AM [facility] Blood Venous blood specimen / Unknown Venipuncture / Unknown 06/17/2024 6:45 AM EST 06/17/2024 9:11 AM EST us Zak Zuluaga MD LAB BLOOD ORDERABLES Final Resul t [facility] [address] [place] [address], * (ABNORMAL) Complete blood count (06/17/2024 6:45 AM EST) WBC 8.6 4.8 - 10.8 K/mcL LAB HEMETOLOGY METHOD 06/17/2024 9:49 AM [facility] RBC 3.00(L) 4.50 - 5.50 M/mcL LAB HEMETOLOGY METHOD 06/17/2024 9:49 AM [facility] Hemoglobin 7.9(L) 13.5 - 17.5 g/dL LAB HEMETOLOGY METHOD 06/17/2024 9:49 AM [facility] Hematocrit 26.5(L) 42.0 - 54.0 % LAB HEMETOLOGY METHOD 06/17/2024 9:49 AM [facility] MCV 88.9 79.0 - 98.0 FL LAB HEMETOLOGY METHOD 06/17/2024 9:49 AM [facility] MCH 26.5(L) 27.0 - 32.0 pcg LAB HEMETOLOGY METHOD 06/17/2024 9:49 AM EST [facility] MCHC 29.8(L) 32.0 - 37.0 g/dL LAB HEMETOLOGY METHOD 06/17/2024 9:49 AM [facility] RDW 16.9(H) 11.0 - 15.0 % LAB HEMETOLOGY METHOD 06/17/2024 9:49 AM [facility] Platelets 284 130 - 400 K/mcL LAB HEMETOLOGY METHOD 06/17/2024 9:49 AM EST [facility] MPV 9.6 7.0 - 11.0 FL LAB HEMETOLOGY METHOD 06/17/2024 9:49 AM [facility] NRBC 0.0 <1.0 % LAB HEMETOLOGY METHOD 06/17/2024 9:49 AM [facility] NRBC Absolute 0.00 <0.10 K/mcL LAB HEMETOLOGY METHOD 06/17/2024 9:49 AM [facility] Blood Venous blood specimen / Unknown Venipuncture / Unknown 06/17/2024 6:45 AM EST 06/17/2024 9:18 AM EST us Zak Zuluaga MD LAB BLOOD ORDERABLES Final Resul t [facility] [address] [place] [address], documented in this encounter Visit Diagnoses Diagnosis Unspecified atrial fibrillation (CMS/HCC) Essential (primary) hypertension Unspecified essential hypertension documented in this encounter Additional Health Concerns Infection Onset Date Last Indicated Resolved Time ESBL 06/22/2024 06/22/2024 documented as of this encounter Care Teams Transportation Sales Consultant Relationship Specialty Start Date End Date Uday Sheehan MD [address] [place] [address] Dr [place] PCP - General Cryptozoologist 12/19/16 documented as of this encounter
--- OUTSIDE RECORDS SUMMARY | 2024-08-20 13:15 | XMS_ITS | Encounter Summary ---
Author Organization [facility] Address [address] [place] [address] Care Team Providers Care Boiler Shop Supervisor Name Role Phone Uday Sheehan MD Primary Care Provider [phone] Encounter Details Date Type Department Care Team (Late st Contact Info) Description 06/07/2024 Lab Requisition [facility] - Main Lab 299 [facility] [place] [address] Zak Zuluaga MD [address] [place] [address] Unspecified atrial fibrillation (CMS/HCC); Essential (primary) hypertension [...] Associated Diagnosis Comments COMPLETE BLOOD COUNT Routine 06/10/2024 6:43 AM EST Unspecified atrial fibrillation (CMS/HCC) Essential (primary) hypertension COMPREHENSIVE METABOLIC PANEL Routine 06/10/2024 6:43 AM EST Unspecified atrial fibrillation (CMS/HCC) Essential (primary) hypertension documented in this encounter Results * (ABNORMAL) Comprehensive metabolic panel (06/10/2024 6:43 AM EST) Sodium 144 133 - 145 mmol/L LAB CHEMISTRY METHOD 06/10/2024 9:35 AM EST [facility] Potassium 4.2 3.5 - 5.5 mmol/L LAB CHEMISTRY METHOD 06/10/2024 9:35 AM [facility] Chloride 112(H) 96 - 110 mmol/L LAB CHEMISTRY METHOD 06/10/2024 9:35 AM [facility] CO2 25 21 - 32 mmol/L LAB CHEMISTRY METHOD 06/10/2024 9:35 AM [facility] Anion Gap 7 3 - 11 LAB CHEMISTRY METHOD 06/10/2024 9:35 AM [facility] Glucose 84 70 - 100 mg/dL LAB CHEMISTRY METHOD 06/10/2024 9:35 AM [facility] BUN 41(H) 5 - 25 mg/dL LAB CHEMISTRY METHOD 06/10/2024 9:35 AM [facility] Creatinine 2.66(H) 0.70 - 1.30 mg/dL LAB CHEMISTRY METHOD 06/10/2024 9:35 AM [facility] eGFR 23(L) >=60 mL/min/1. 73m2 LAB CHEMISTRY METHOD 06/10/2024 9:35 AM [facility] Comment:Calculation based on the??Chronic Kidney Disease Epidemiology Collaboration (CKD-EPI) equation refit??without adjustment for race. BUN/Creatinine Ratio 15.4 LAB CHEMISTRY METHOD 06/10/2024 9:35 AM [facility] Calcium 7.8(L) 8.5 - 10.5 mg/dL LAB CHEMISTRY METHOD 06/10/2024 9:35 AM [facility] AST (SGOT) 262(H) 10 - 42 unit/L LAB CHEMISTRY METHOD 06/10/2024 9:35 AM [facility] ALT (SGPT) 146(H) 10 - 60 unit/L LAB CHEMISTRY METHOD 06/10/2024 9:35 AM [facility] Alkaline Phosphatase 94 42 - 121 unit/L LAB CHEMISTRY METHOD 06/10/2024 9:35 AM [facility] Total Protein 5.1(L) 6.0 - 8.0 g/dL LAB CHEMISTRY METHOD 06/10/2024 9:35 AM [facility] Albumin 1.6(L) 3.2 - 5.0 g/dL LAB CHEMISTRY METHOD 06/10/2024 9:35 AM [facility] Total Bilirubin 0.4 0.0 - 1.4 mg/dL LAB CHEMISTRY METHOD 06/10/2024 9:35 AM [facility] Blood Venous blood specimen / Unknown Venipuncture / Unknown 06/10/2024 6:43 AM EST 06/10/2024 8:01 AM EST Zak Zuluaga MD LAB BLOOD ORDERABLES Final Resul t [facility] [address] [place] [address], * (ABNORMAL) Complete blood count (06/10/2024 6:43 AM EST) WBC 4.7(L) 4.8 - 10.8 K/mcL LAB HEMETOLOGY METHOD 06/10/2024 8:36 AM [facility] RBC 2.40(L) 4.50 - 5.50 M/mcL LAB HEMETOLOGY METHOD 06/10/2024 8:36 AM [facility] Hemoglobin 6.3(LL) 13.5 - 17.5 g/dL LAB HEMETOLOGY METHOD 06/10/2024 8:36 AM [facility] Hematocrit 21.0(L) 42.0 - 54.0 % LAB HEMETOLOGY METHOD 06/10/2024 8:36 AM [facility] MCV 88.0 79.0 - 98.0 FL LAB HEMETOLOGY METHOD 06/10/2024 8:36 AM [facility] MCH 26.0(L) 27.0 - 32.0 pcg LAB HEMETOLOGY METHOD 06/10/2024 8:36 AM EST [facility] MCHC 29.6(L) 32.0 - 37.0 g/dL LAB HEMETOLOGY METHOD 06/10/2024 8:36 AM [facility] RDW 17.1(H) 11.0 - 15.0 % LAB HEMETOLOGY METHOD 06/10/2024 8:36 AM [facility] Platelets 169 130 - 400 K/mcL LAB HEMETOLOGY METHOD 06/10/2024 8:36 AM [facility] MPV 10.3 7.0 - 11.0 FL LAB HEMETOLOGY METHOD 06/10/2024 8:36 AM [facility] NRBC 0.0 <1.0 % LAB HEMETOLOGY METHOD 06/10/2024 8:36 AM [facility] NRBC Absolute 0.00 <0.10 K/mcL LAB HEMETOLOGY METHOD 06/10/2024 8:36 AM [facility] Blood Venous blood specimen / Unknown Venipuncture / Unknown 06/10/2024 6:43 AM EST 06/10/2024 8:01 AM EST us Zak Zuluaga MD LAB BLOOD ORDERABLES Final Resul t [facility] [address] [place] [address], documented in this encounter Visit Diagnoses Diagnosis Unspecified atrial fibrillation (CMS/HCC) Essential (primary) hypertension Unspecified essential hypertension documented in this encounter Additional Health Concerns Infection Onset Date Last Indicated Resolved Time ESBL 06/22/2024 06/22/2024 documented as of this encounter Care Teams Boiler Shop Supervisor Relationship Specialty Start Date End Date Uday Sheehan MD [address] [facility] [address] Donna [place] PCP - General School Patrol 12/19/16 documented as of this encounter
--- OUTSIDE RECORDS SUMMARY | 2024-08-20 13:15 | XMS_ITS | Encounter Summary ---
Author Organization [facility] Address [address] [place] [address] Care Team Providers Care Drywall Hanger Framer Name Role Phone Uday Sheehan MD Primary Care Provider Encounter Details Date Type Department Care Team (Late st Contact Info) Description 07/27/2024 Lab Requisition [facility] - Main Lab 299 [facility] [place] [address] Tabby Bledsoe MD [address] [address] Bacteremia Social History Tobacco Use Types Packs/Day [...] Associated Diagnosis Comments COMPLETE BLOOD COUNT Routine 07/29/2024 10:02 AM EST Bacteremia COMPREHENSIVE METABOLIC PANEL Routine 07/29/2024 10:02 AM EST Bacteremia documented in this encounter Results * (ABNORMAL) Comprehensive metabolic panel (07/29/2024 10:02 AM EST) Sodium 141 133 - 145 mmol/L LAB CHEMISTRY METHOD 07/29/2024 2:40 PM EST [facility] Potassium 3.6 3.5 - 5.5 mmol/L LAB CHEMISTRY METHOD 07/29/2024 2:40 PM EST [facility] Chloride 105 96 - 110 mmol/L LAB CHEMISTRY METHOD 07/29/2024 2:[address] [facility] CO2 29 21 - 32 mmol/L LAB CHEMISTRY METHOD 07/29/2024 2:[address] [facility] Anion Gap 7 3 - 11 LAB CHEMISTRY METHOD 07/29/2024 2:[address] [facility] Glucose 98 70 - 100 mg/dL LAB CHEMISTRY METHOD 07/29/2024 2:[address] [facility] BUN 26(H) 5 - 25 mg/dL LAB CHEMISTRY METHOD 07/29/2024 2:[address] [facility] Creatinine 2.26(H) 0.70 - 1.30 mg/dL LAB CHEMISTRY METHOD 07/29/2024 2:[address] [facility] eGFR 28(L) >=60 mL/min/1. 73m2 LAB CHEMISTRY METHOD 07/29/2024 2:[address] [facility] Comment:Calculation based on the??Chronic Kidney Disease Epidemiology Collaboration (CKD-EPI) equation refit??without adjustment for race. BUN/Creatinine Ratio 11.5 LAB CHEMISTRY METHOD 07/29/2024 2:[address] [facility] Calcium 8.5 8.5 - 10.5 mg/dL LAB CHEMISTRY METHOD 07/29/2024 2:[address] [facility] AST (SGOT) 15 10 - 42 unit/L LAB CHEMISTRY METHOD 07/29/2024 2:[address] [facility] ALT (SGPT) 8(L) 10 - 60 unit/L LAB CHEMISTRY METHOD 07/29/2024 2:[address] [facility] Alkaline Phosphatase 93 42 - 121 unit/L LAB CHEMISTRY METHOD 07/29/2024 2:[address] [facility] Total Protein 5.5(L) 6.0 - 8.0 g/dL LAB CHEMISTRY METHOD 07/29/2024 2:[address] [facility] Albumin 1.5(L) 3.2 - 5.0 g/dL LAB CHEMISTRY METHOD 07/29/2024 2:[address] [facility] Total Bilirubin 0.2 0.0 - 1.4 mg/dL LAB CHEMISTRY METHOD 07/29/2024 2:[address] [facility] Blood Venous blood specimen / Unknown Venipuncture / Unknown 07/29/2024 10:02 AM EST 07/29/2024 12:19 PM EST us Tabby Bledsoe MD LAB BLOOD ORDERABLES Fin al Result [facility] [address] [place] [address], * (ABNORMAL) Complete blood count (07/29/2024 10:02 AM EST) WBC 6.7 4.8 - 10.8 K/mcL LAB HEMETOLOGY METHOD 07/29/2024 2:[address] [facility] RBC 2.80(L) 4.50 - 5.50 M/mcL LAB HEMETOLOGY METHOD 07/29/2024 2:[address] [facility] Hemoglobin 7.3(L) 13.5 - 17.5 g/dL LAB HEMETOLOGY METHOD 07/29/2024 2:[address] [facility] Hematocrit 25.3(L) 42.0 - 54.0 % LAB HEMETOLOGY METHOD 07/29/2024 2:[address] [facility] MCV 90.0 79.0 - 98.0 FL LAB HEMETOLOGY METHOD 07/29/2024 2:[address] [facility] MCH 26.0(L) 27.0 - 32.0 pcg LAB HEMETOLOGY METHOD 07/29/2024 2:[address] [facility] MCHC 28.9(L) 32.0 - 37.0 g/dL LAB HEMETOLOGY METHOD 07/29/2024 2:[address] [facility] RDW 19.8(H) 11.0 - 15.0 % LAB HEMETOLOGY METHOD 07/29/2024 2:[address] [facility] Platelets 240 130 - 400 K/mcL LAB HEMETOLOGY METHOD 07/29/2024 2:[address] [facility] MPV 9.5 7.0 - 11.0 FL LAB HEMETOLOGY METHOD 07/29/2024 2:[address] [facility] NRBC 0.0 <1.0 % LAB HEMETOLOGY METHOD 07/29/2024 2:[address] [facility] NRBC Absolute 0.00 <0.10 K/mcL LAB HEMETOLOGY METHOD 07/29/2024 2:[address] [facility] Blood Venous blood specimen / Unknown Venipuncture / Unknown 07/29/2024 10:02 AM EST 07/29/2024 12:19 PM EST Tabby Bledsoe MD LAB BLOOD ORDERABLES Fin al Result [facility] [address] [place] [address], documented in this encounter Visit Diagnoses Diagnosis Bacteremia documented in this encounter Additional Health Concerns Infection Onset Date Last Indicated Resolved Time ESBL 06/22/2024 06/22/2024 documented as of this encounter Care Teams Drywall Hanger Framer Relationship Specialty Start Date End Date Uday Sheehan MD [address] [facility] [address] Donna [place] PCP - General Soldering Machine Operator Helper 12/19/16 documented as of this encounter
--- OUTSIDE RECORDS SUMMARY | 2024-08-20 13:15 | XMS_ITS | Encounter Summary ---
Author Organization [facility] Address [address] [place] [address] Care Team Providers Care Buhr Mill Operator Name Role Phone Uday Sheehan MD Primary Care Provider [phone] Encounter Details Date Type Department Care Team (Late st Contact Info) Description 06/21/2024 Lab Requisition [facility] - Main Lab [address] [place] [address] Pearl Garcia MD [address] [place] [address] Unspecified atrial fibrillation (CMS/HCC); Essential (primary) hypertension [...] Associated Diagnosis Comments COMPLETE BLOOD COUNT Routine 06/24/2024 6:49 AM EST Unspecified atrial fibrillation (CMS/HCC) Essential (primary) hypertension COMPREHENSIVE METABOLIC PANEL Routine 06/24/2024 6:49 AM EST Unspecified atrial fibrillation (CMS/HCC) Essential (primary) hypertension documented in this encounter Results * (ABNORMAL) Comprehensive metabolic panel (06/24/2024 6:49 AM EST) Sodium 146(H) 133 - 145 mmol/L LAB CHEMISTRY METHOD 06/24/2024 12:29 PM EST [facility] Potassium 3.8 3.5 - 5.5 mmol/L LAB CHEMISTRY METHOD 06/24/2024 12:29 PM [facility] Chloride 114(H) 96 - 110 mmol/L LAB CHEMISTRY METHOD 06/24/2024 12:29 PM [facility] CO2 24 21 - 32 mmol/L LAB CHEMISTRY METHOD 06/24/2024 12:29 PM [facility] Anion Gap 8 3 - 11 LAB CHEMISTRY METHOD 06/24/2024 12:29 PM [facility] Glucose 99 70 - 100 mg/dL LAB CHEMISTRY METHOD 06/24/2024 12:29 PM [facility] BUN 59(H) 5 - 25 mg/dL LAB CHEMISTRY METHOD 06/24/2024 12:29 PM [facility] Creatinine 2.52(H) 0.70 - 1.30 mg/dL LAB CHEMISTRY METHOD 06/24/2024 12:29 PM [facility] eGFR 24(L) >=60 mL/min/1. 73m2 LAB CHEMISTRY METHOD 06/24/2024 12:29 PM [facility] Comment:Calculation based on the??Chronic Kidney Disease Epidemiology Collaboration (CKD-EPI) equation refit??without adjustment for race. BUN/Creatinine Ratio 23.4 LAB CHEMISTRY METHOD 06/24/2024 12:29 PM [facility] Calcium 9.2 8.5 - 10.5 mg/dL LAB CHEMISTRY METHOD 06/24/2024 12:29 PM [facility] AST (SGOT) 82(H) 10 - 42 unit/L LAB CHEMISTRY METHOD 06/24/2024 12:29 PM [facility] ALT (SGPT) 66(H) 10 - 60 unit/L LAB CHEMISTRY METHOD 06/24/2024 12:29 PM [facility] Alkaline Phosphatase 113 42 - 121 unit/L LAB CHEMISTRY METHOD 06/24/2024 12:29 PM [facility] Total Protein 6.5 6.0 - 8.0 g/dL LAB CHEMISTRY METHOD 06/24/2024 12:29 PM [facility] Albumin 1.7(L) 3.2 - 5.0 g/dL LAB CHEMISTRY METHOD 06/24/2024 12:29 PM [facility] Total Bilirubin 0.5 0.0 - 1.4 mg/dL LAB CHEMISTRY METHOD 06/24/2024 12:29 PM EST [facility] Blood Venous blood specimen / Unknown Venipuncture / Unknown 06/24/2024 6:49 AM EST 06/24/2024 10:18 AM EST us Pearl Garcia MD LAB BLOOD ORDERABLES Final Resul t [facility] [address] [place] [address], * (ABNORMAL) Complete blood count (06/24/2024 6:49 AM EST) WBC 10.9(H) 4.8 - 10.8 K/mcL LAB HEMETOLOGY METHOD 06/24/2024 10:45 AM [facility] RBC 3.00(L) 4.50 - 5.50 M/mcL LAB HEMETOLOGY METHOD 06/24/2024 10:45 AM [facility] Hemoglobin 7.6(L) 13.5 - 17.5 g/dL LAB HEMETOLOGY METHOD 06/24/2024 10:45 AM [facility] Hematocrit 26.8(L) 42.0 - 54.0 % LAB HEMETOLOGY METHOD 06/24/2024 10:45 AM [facility] MCV 90.5 79.0 - 98.0 FL LAB HEMETOLOGY METHOD 06/24/2024 10:45 AM [facility] MCH 25.7(L) 27.0 - 32.0 pcg LAB HEMETOLOGY METHOD 06/24/2024 10:45 AM EST [facility] MCHC 28.4(L) 32.0 - 37.0 g/dL LAB HEMETOLOGY METHOD 06/24/2024 10:45 AM [facility] RDW 17.5(H) 11.0 - 15.0 % LAB HEMETOLOGY METHOD 06/24/2024 10:45 AM EST [facility] Platelets 239 130 - 400 K/mcL LAB HEMETOLOGY METHOD 06/24/2024 10:45 AM EST [facility] MPV 9.8 7.0 - 11.0 FL LAB HEMETOLOGY METHOD 06/24/2024 10:45 AM [facility] NRBC 0.0 <1.0 % LAB HEMETOLOGY METHOD 06/24/2024 10:45 AM [facility] NRBC Absolute 0.00 <0.10 K/mcL LAB HEMETOLOGY METHOD 06/24/2024 10:45 AM [facility] Blood Venous blood specimen / Unknown Venipuncture / Unknown 06/24/2024 6:49 AM EST 06/24/2024 10:28 AM EST us Pearl Garcia MD LAB BLOOD ORDERABLES Final Resul t [facility] [address] [place] [address], documented in this encounter Visit Diagnoses Diagnosis Unspecified atrial fibrillation (CMS/HCC) Essential (primary) hypertension Unspecified essential hypertension documented in this encounter Additional Health Concerns Infection Onset Date Last Indicated Resolved Time ESBL 06/22/2024 06/22/2024 documented as of this encounter Care Teams Buhr Mill Operator Relationship Specialty Start Date End Date Uday Sheehan MD [address] [facility] [address] [place] PCP - General Director Of Housing And Energy Services 12/19/16 documented as of this encounter
--- OUTSIDE RECORDS SUMMARY | 2024-08-20 13:16 | XMS_ITS | Encounter Summary ---
Author Organization [facility] Address [address] [place] [address] Phone Care Team Providers Care Cleaning Machine Operator Name Role Phone Uday Sheehan MD Primary Care Provider [phone] Encounter Details Date Type Department Care Team (Late st Contact Info) Description 09/08/2023 Documentation Only [facility] [place], [address] [place] [address] [place], [place] [address] [place] [address] Social History Tobacco Use Types Packs/Day Years [...] on filedocumented in this encounter Care Teams Cleaning Machine Operator Relationship Specialty Start Date End Date Uday Sheehan MD [address] [place] PCP - General 05/14/19 documented as of this encounter
--- OUTSIDE RECORDS SUMMARY | 2024-08-20 13:16 | XMS_ITS | Clinical Summary ---
Author Organization [facility], Address [address] [place] [address] [place] [address] Phone Care Team Providers Care Stationary Fireman Name Role Phone Uday Sheehan MD Primary Care Provider [phone] Allergies Active Allergy Reactions Criticality Noted Date Comments Hydromorphone Other (see comments) 08/13/2019 Medications apixaban (ELIQUIS) 5 MG tablet Take 0.5 tablets by mouth in the morning and 0.5 tablets in the evening. Active levothyroxine (SYNTHROID, LEVOTHROID) 88 MCG tablet Take 88 mcg by mouth 2 (two) times a day 8 Active pantoprazole (PROTONIX) 40 MG EC tablet Take 40 mg by mouth 1 (one) time each day before breakfast Do not crush, chew, or split. Active amiodarone (PACERONE) 200 MG tablet 2 Active amLODIPine (NORVASC) 2.5 MG tablet Take 2.5 mg by mouth 1 (one) time each day 2 Active oxyCODONE (ROXICODONE) 5 MG immediate release tablet Take 5 mg by mouth 2 (two) times a day if needed 2 Active predniSONE (DELTASONE) 10 MG tablet TAKE 4 TABLETS BY MOUTH FOR 3 DAYS 3 TABLETS FOR 2 DAYS 2 TABLETS FOR 2 DAYS AND 1 TABLET FOR 2 DAYS 2 Active predniSONE (DELTASONE) 20 MG tablet Take 20 mg by mouth 1 (one) time each day if needed 2 Active pyridoxine (VITAMIN B-6) 100 MG tablet Take 100 mg by mouth 1 (one) time each day 2 Active Aspirin Low Dose 81 MG EC tablet Take 81 mg by mouth 1 (one) time each day 3 Active atorvastatin (LIPITOR) 80 MG tablet Take 80 mg by mouth 1 (one) time each day 3 Active levoFLOXacin (LEVAQUIN) 750 MG tablet Take 750 mg by mouth 3 Active oxybutynin XL (DITROPAN-XL) 10 MG 24 hr tablet Take 10 mg by mouth 1 (one) time each day 3 Active tamsulosin (FLOMAX) 0.4 MG 24 hr capsule Take 0.4 mg by mouth at bed time 3 Active Active Problems Problem Noted Date Diagnosed Date Essential hypertension 10/20/2022 Gastro-esophageal reflux disease without esophag itis 10/20/2022 Chronic kidney disease stage 3 08/13/2019 Social History Tobacco Use Types Packs/Day Years Used Date Smoking Tobacco: Never Alcohol Use Standard Drinks/Week Comments No 0 (1 standard drink = 0.6 oz pur e alcohol) Sex and Gender Information Value Date Recorded Sex Assigned at Not on file Legal Sex Male 4:32 PM EST Gender Identity Not on file Sexual Orientation Not on file Last Filed Vital Signs Vital Sign Reading Time Taken Comments Blood Pressure 176/78 09/08/2023 1:37 PM EST Pulse - - Temperature - - Respiratory Rate - - Oxygen Saturation - - Inhaled Oxygen Concentration - - Weight 120 kg (265 lb) 08/21/2019 1:52 PM EST Height 185.4 cm (6' 1 ) 04/24/2019 12:00 PM EDT Body Mass Index 34.96 04/24/2019 12:00 PM EDT Plan of Treatment Health Maintenance Due Date Last Done Comments Pneumococcal Vaccine: 65+ Ye ars (1 of 2 - PCV) 02/15/1946 Influenza Vaccine Completed 04/08/2024 Hepatitis B Vaccine Aged Out No longe r eligible based on patient's age to complete this topic Insurance [facility]ARE [facility] MEDICARE [facility] [address] [id number] Care Teams Stationary Fireman Relationship Specialty Start Date End Date Uday Sheehan MD [address] [place], [place] PCP - General 05/14/19
--- OUTSIDE RECORDS SUMMARY | 2024-08-20 13:16 | XMS_ITS | Encounter Summary ---
Author Organization [facility] Address [address] [place] [address] Care Team Providers Care Completions Engineer Name Role Phone Uday Sheehan Primary Care Provider [phone] Encounter Details Date Type Department Care Team (Late st Contact Info) Description 05/27/2024 Lab Requisition [facility] [address] [place] [address] Salo Whyte MD [address] [place] [address] Acute and chronic respiratory failure with hypoxia [...] of this encounter Procedures * Due to [place] state law, this organization might not be sharing negative HIV tests. Procedure Name Priority Date/Time Associated Diagnosis Comments CBC AUTO DIFFERENTIAL Routine 05/27/2024 10:09 AM EST Acute and chronic respiratory failure with hypoxia (HCC) No diagnosis COMPREHENSIVE METABOLIC PANEL Routine 05/27/2024 10:09 AM EST Acute and chronic respiratory failure with hypoxia (HCC) No diagnosis documented in this encounter Results * Due to [place] state law, this organization might not be sharing negative HIV tests. * (ABNORMAL) CBC Auto Differential (05/27/2024 10:09 AM EST) WBC 6.1 4.8 - 10.8 10*3/uL 05/27/2024 10:58 AM EST [facility] RBC 3.05(L) 4.70 - 6.10 10*6/uL 05/27/2024 10:58 AM [facility] Hemoglobin 8.4(L) 13.7 - 16.5 g/dL 05/27/2024 10:58 AM [facility] Hematocrit 26.6(L) 40.5 - 48.5 % 05/27/2024 10:58 AM [facility] MCV 87.2 80.0 - 94.0 fL 05/27/2024 10:58 AM [facility] MCH 27.5 26.0 - 34.0 pg 05/27/2024 10:58 AM [facility] MCHC 31.6 31.0 - 36.0 g/dL 05/27/2024 10:58 AM [facility] RDW 17.0(H) 12.0 - 15.0 % 05/27/2024 10:58 AM [facility] RDW Standard Deviation 54.3(H) 35.1 - 43.9 fL 05/27/2024 10:58 AM [facility] Platelets 147 140 - 440 10*3/uL 05/27/2024 10:58 AM [facility] MPV 10.1 9.4 - 12.4 fL 05/27/2024 10:58 AM [facility] Neutrophil % 57.4 50.0 - 75.0 % 05/27/2024 10:58 AM [facility] Immature Grans % 0.3 0.0 - 0.9 % 05/27/2024 10:58 AM [facility] Lymphocyte % 23.7 20.0 - 44.0 % 05/27/2024 10:58 AM EST [facility] Monocyte % 12.7 0.0 - 14.0 % 05/27/2024 10:58 AM EST [facility] Eosinophil % 5.6(H) 0.0 - 5.0 % 05/27/2024 10:58 AM EST [facility] Basophil % 0.3 0.0 - 2.0 % 05/27/2024 10:58 AM EST [facility] Neutrophil # 3.51 1.80 - 7.70 10*3/uL 05/27/2024 10:58 AM EST [facility] Immature Grans # <0.03 0.00 - 0.03 10*3/uL 05/27/2024 10:58 AM EST [facility] Lymphocyte # 1.50 1.00 - 4.75 10*3/uL 05/27/2024 10:58 AM EST [facility] Monocyte # 0.80 0.00 - 6.00 10*3/uL 05/27/2024 10:58 AM EST [facility] Eosinophil # 0.30 0.00 - 0.80 10*3/uL 05/27/2024 10:58 AM EST [facility] Basophil # <0.03 0.00 - 0.20 10*3/uL 05/27/2024 10:58 AM EST [facility] nRBC % 0.0 0 - 0 /100 WBCs 05/27/2024 10:58 AM EST [facility] nRBC # <0.01 0.00 - 0.13 10*3/uL 05/27/2024 10:58 AM EST [facility] Blood Structure of peripheral vein / Unknown Venipuncture / Unknown 05/27/2024 10:09 AM EST 05/27/2024 10:10 AM EST us Salo Whyte MD LAB BLOOD ORDERABLES Final Result [facility] [address] [place] [address] [address] [place] [address], [place] [phone] * (ABNORMAL) Comprehensive Metabolic Panel (05/27/2024 10:09 AM EST) NA 142 136 - 145 mmol/L 05/27/2024 11:11 AM EST [facility] K 3.9 3.5 - 5.1 mmol/L 05/27/2024 11:11 AM EST [facility] Cl 104 98 - 109 mmol/L 05/27/2024 11:11 AM EST [facility] CO2 30 22 - 32 mmol/L 05/27/2024 11:11 AM EST [facility] Anion Gap 12 >=0 05/27/2024 11:11 AM EST [facility] Glucose 99 60 - 99 mg/dL 05/27/2024 11:11 AM EST [facility] Creatinine 1.71(H) 0.50 - 1.12 mg/dL 05/27/2024 11:11 AM EST [facility] Calcium 9.4 8.4 - 10.4 mg/dL 05/27/2024 11:11 AM EST [facility] Total Protein 6.0(L) 6.6 - 8.7 g/dL 05/27/2024 11:11 AM EST [facility] Albumin 2.9(L) 3.5 - 5.0 g/dL 05/27/2024 11:11 AM EST [facility] Bilirubin, Total 0.3 0.2 - 1.2 mg/dL 05/27/2024 11:11 AM EST [facility] Alkaline Phosphatase 113 40 - 129 U/L 05/27/2024 11:11 AM EST [facility] AST 18 0 - 40 U/L 05/27/2024 11:11 AM EST [facility] ALT 12 <=41 U/L 05/27/2024 11:11 AM EST [facility] BUN 41(H) 8 - 23 mg/dL 05/27/2024 11:11 AM EST [facility] eGFR 39(L) >=60 mL/min/1. 73m2 05/27/2024 11:11 AM EST [facility] Comment:The estimated glomer ular filtration [...] Globulin, Total 3.1 2.1 - 4.2 g/dL 05/27/2024 11:11 AM EST [facility] A/G Ratio 0.9(L) 1.5 - 3.0 05/27/2024 11:11 AM EST [facility] Blood Structure of peripheral vein / Unknown Venipuncture / Unknown 05/27/2024 10:09 AM EST 05/27/2024 10:10 AM EST Salo Whyte MD LAB BLOOD ORDERABLES Final Result Performing Organization Address City/State/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
--- OUTSIDE RECORDS SUMMARY | 2024-08-20 13:16 | XMS_ITS | Encounter Summary ---
Author Organization [facility] Address [address] [place] [address] Care Team Providers Care Injection Molding Machine Setter Name Role Phone Uday Sheehan Primary Care Provider [phone] Encounter Details Date Type Department Care Team (Late st Contact Info) Description 05/28/2024 Lab Requisition [facility] [address] [place] [address] Valarie Pierson MD [address] [place] [address] Acute and chronic respiratory failure with hypoxia [...] of this encounter Procedures * Due to [place] [employer] law, this organization might not be sharing negative HIV tests. Procedure Name Priority Date/Time Associated Diagnosis Comments TROPONIN T HIGH SENSITIVITY Routine 05/28/2024 2:28 PM EST Acute and chronic respiratory failure with hypoxia (HCC) No diagnosis documented in this encounter Results * Due to [place] [employer] law, this organization might not be sharing negative HIV tests. * (ABNORMAL) Troponin T, High Sensitivity (05/28/2024 2:28 PM EST) Troponin T High Sensitivity 35(H) 6 - 22 ng/L 05/28/2024 3:30 PM EST [facility] Comment: [id number] level of 52 ng/L or higher at 0-hour at presentation is recommended by the ESC 0/1-hour algorithm for identifying patients at high risk for ruling in acute myocardial infarction (AMI) in the appropriate clinical context. Repeat troponin testing 1-3 hours after the initial sample may be helpful in assessing for ongoing myocardial injury. Troponin elevations can be seen in several other non-infarct conditions, and the change (delta) should be evaluated in line with the 4th [place] Definition of AMI. Troponin baseline and serial elevation for a significant delta should be interpreted with clinical presentation, history, signs and symptoms, ECG, and biomarker concentrations. For inpatient setting: Value <12ng/L is considered negative for all genders. 0-1hr: A delta change of <3 will be considered negative/flat if chest pain onset >3 hours 0-3hr: A delta change of <7 will be considered negative/flat Blood Structure of peripheral vein / Unknown 05/28/2024 2:28 PM EST 05/28/2024 2:29 PM EST us Valarie Pierson MD LAB BLOOD ORDERABLES Final Res ult [facility] [address] [facility] [address] [place] [address], documented in this encounter Visit Diagnoses Diagnosis Acute and chronic respiratory failure with hypoxia (HCC) No diagnosis documented in this encounter Additional Health Concerns Infection Onset Date Last Indicated Resolved Time 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
--- OUTSIDE RECORDS SUMMARY | 2024-08-20 13:16 | XMS_ITS | Encounter Summary ---
Author Organization [facility] Address [address] [place] [address] Care Team Providers Care Ebay Reseller Name Role Phone Uday Sheehan Primary Care Provider [phone] Encounter Details Date Type Department Care Team (Late st Contact Info) Description 03/16/2024 Lab Requisition [facility] [address] [place] [address] Cecilio Bautista PA [address] [place] [address] Acute respiratory failure with hypoxia (HCC); No [...] of this encounter Procedures * Due to [place] [employer] law, this organization might not be sharing negative HIV tests. Procedure Name Priority Date/Time Associated Diagnosis Comments VANCOMYCIN, TROUGH Routine 03/16/2024 11 :54 AM EDT Acute respiratory failure with hypoxia (HCC) No diagnosis documented in this encounter Results * Due to [place] [employer] law, this organization might not be sharing negative HIV tests. * (ABNORMAL) Vancomycin, Trough (03/16/2024 11:54 AM EDT) Vancomycin Trough 8.2(L) 10.0 - 20.0 ug/mL 03/16/2024 1:58 PM EDT [facility] Blood Structure of peripheral vein / Unknown 03/16/2024 11:54 AM EDT 03/16/2024 11:54 AM EDT Cecilio ZHU LAB BLOOD ORDERABLES Final R esult [facility] [address] [place] [address], [place] [phone] documented in this encounter Visit Diagnoses Diagnosis [...] documented as of this encounter Care Teams Ebay Reseller Relationship Specialty Start Date End Date Uday Sheehan [address] [place] [address] [place] [address] PCP - General Internal Medicine 03/27/24 documented as of this encounter
--- OUTSIDE RECORDS SUMMARY | 2024-08-20 13:16 | XMS_ITS | Encounter Summary ---
Author Organization [facility], Address [address] [place] [address] Phone Care Team Providers Care Custodial Maintenance Worker Name Role Phone Uday Sheehan MD Primary Care Provider [phone] Encounter Details Date Type Department Care Team (Late st Contact Info) Description 10/11/2021 Documentation Only [facility], [address] [place] [phone] Adi Jaeger MD [address] [facility] [address] [place] [phone] Social History Tobacco Use Types Packs/Day Years [...] on filedocumented in this encounter Care Teams Custodial Maintenance Worker Relationship Specialty Start Date End Date Uday Sheehan MD [address] [place] PCP - General 05/14/19 documented as of this encounter
--- OUTSIDE RECORDS SUMMARY | 2024-08-20 13:16 | XMS_ITS | Encounter Summary ---
Author Organization [facility] Address [address] [place] [address] Care Team Providers Care Mandate Retail Service Merchandiser Name Role Phone Uday Sheehan Primary Care Provider [phone] Encounter Details Date Type Department Care Team (Late st Contact Info) Description 03/15/2024 Lab Requisition [facility] [address] [place] [address] Lidia Barry, CB [address] [place] [address] Acute and chronic respiratory failure with hypoxia [...] this encounter Procedures * Due to [place] state law, this organization might not be sharing negative HIV tests. Procedure Name Priority Date/Time Associated Diagnosis Comments CBC AUTO DIFFERENTIAL Routine 03/15/2024 8:31 AM EDT Acute and chronic respiratory failure with hypoxia (HCC) No diagnosis AMMONIA Routine 03/15/2024 8:31 AM EDT Acute and chronic respiratory failure with hypoxia (HCC) No diagnosis COMPREHENSIVE METABOLIC PANEL Routine 03/15/2024 8:31 AM EDT Acute and chronic respiratory failure with hypoxia (HCC) No diagnosis documented in this encounter Results * Due to [place] state law, this organization might not be sharing negative HIV tests. * (ABNORMAL) CBC Auto Differential (03/15/2024 8:31 AM EDT) WBC 7.1 4.8 - 10.8 10*3/uL 03/15/2024 9:07 AM EDT [facility] RBC 3.05(L) 4.70 - 6.10 10*6/uL 03/15/2024 9:07 AM EDT [facility] Hemoglobin 8.5(L) 13.7 - 16.5 g/dL 03/15/2024 9:07 AM EDT [facility] Hematocrit 26.2(L) 40.5 - 48.5 % 03/15/2024 9:07 AM EDT [facility] MCV 85.9 80.0 - 94.0 fL 03/15/2024 9:07 AM EDT [facility] MCH 27.9 26.0 - 34.0 pg 03/15/2024 9:07 AM EDT [facility] MCHC 32.4 31.0 - 36.0 g/dL 03/15/2024 9:07 AM EDT [facility] RDW 15.2(H) 12.0 - 15.0 % 03/15/2024 9:07 AM EDT [facility] RDW Standard Deviation 47.7(H) 35.1 - 43.9 fL 03/15/2024 9:07 AM EDT [facility] Platelets 149 140 - 440 10*3/uL 03/15/2024 9:07 AM EDT [facility] MPV 10.3 9.4 - 12.4 fL 03/15/2024 9:07 AM EDT [facility] Neutrophil % 59.2 50.0 - 75.0 % 03/15/2024 9:07 AM EDT [facility] Immature Grans % 0.4 0.0 - 0.9 % 03/15/2024 9:07 AM EDT [facility] Lymphocyte % 24.8 20.0 - 44.0 % 03/15/2024 9:07 AM EDT [facility] Monocyte % 10.9 0.0 - 14.0 % 03/15/2024 9:07 AM EDT [facility] Eosinophil % 4.1 0.0 - 5.0 % 03/15/2024 9:07 AM EDT [facility] Basophil % 0.6 0.0 - 2.0 % 03/15/2024 9:07 AM EDT [facility] Neutrophil # 4.23 1.80 - 7.70 10*3/uL 03/15/2024 9:07 AM EDT [facility] Immature Grans # 0.03 0.00 - 0.03 10*3/uL 03/15/2024 9:07 AM EDT [facility] Lymphocyte # 1.80 1.00 - 4.75 10*3/uL 03/15/2024 9:07 AM EDT [facility] Monocyte # 0.80 0.00 - 6.00 10*3/uL 03/15/2024 9:07 AM EDT [facility] Eosinophil # 0.30 0.00 - 0.80 10*3/uL 03/15/2024 9:07 AM EDT [facility] Basophil # <0.03 0.00 - 0.20 10*3/uL 03/15/2024 9:07 AM EDT [facility] nRBC % 0.0 0 - 0 /100 WBCs 03/15/2024 9:07 AM EDT [facility] nRBC # <0.01 0.00 - 0.13 10*3/uL 03/15/2024 9:07 AM EDT [facility] Blood Structure of peripheral vein / Unknown 03/15/2024 8:31 AM EDT 03/15/2024 8:31 AM EDT [facility] PREASSEMBLER AND INSPECTOR LAB BLOOD ORDERABLES Final R esult Performing Organization Address City/[facility]/ZIP Co de Phone Number [facility] [address] [address], [place] [phone] * Ammonia (03/15/2024 8:31 AM EDT) Ammonia 17 16 - 60 umol/L 03/15/2024 8:55 AM EDT [facility] Blood Structure of peripheral vein / Unknown 03/15/2024 8:31 AM EDT 03/15/2024 8:31 AM EDT us [facility] PREASSEMBLER AND INSPECTOR LAB BLOOD ORDERABLES Final R esult Performing Organization Address [facility]/ZIP Co de Phone Number [facility] [address] [address], [place] [phone] * (ABNORMAL) Comprehensive Metabolic Panel (03/15/2024 8:31 AM EDT) NA 137 136 - 145 mmol/L 03/15/2024 9:35 AM EDT [facility] K 3.7 3.5 - 5.1 mmol/L 03/15/2024 9:35 AM EDT [facility] Cl 98 98 - 109 mmol/L 03/15/2024 9:35 AM EDT [facility] CO2 31 23 - 32 mmol/L 03/15/2024 9:35 AM EDT [facility] Anion Gap 12 >=0 03/15/2024 9:35 AM EDT [facility] Glucose 108(H) 60 - 99 mg/dL 03/15/2024 9:35 AM EDT [facility] Creatinine 1.07 0.50 - 1.12 mg/dL 03/15/2024 9:35 AM EDT [facility] Calcium 9.0 8.4 - 10.4 mg/dL 03/15/2024 9:35 AM EDT [facility] Total Protein 5.8(L) 6.6 - 8.7 g/dL 03/15/2024 9:35 AM EDT [facility] Albumin 3.2(L) 3.5 - 5.0 g/dL 03/15/2024 9:35 AM EDT [facility] Bilirubin, Total 0.4 0.2 - 1.2 mg/dL 03/15/2024 9:35 AM EDT [facility] Alkaline Phosphatase 112 40 - 129 U/L 03/15/2024 9:35 AM EDT [facility] AST 28 0 - 40 U/L 03/15/2024 9:35 AM EDT [facility] Comment:[place] REVIEWED ALT 35 <=41 U/L 03/15/2024 9:35 AM EDT [facility] BUN 16 8 - 23 mg/dL 03/15/2024 9:35 AM EDT [facility] eGFR 68 >=60 mL/min/1. 73m2 03/15/2024 9:35 AM EDT [facility] Comment:The estimated glomer ular filtration [...] in Diagnosing Kidney Disease . Globulin, Total 2.6 2.1 - 4.2 g/dL 03/15/2024 9:35 AM EDT [facility] A/G Ratio 1.2(L) 1.5 - 3.0 03/15/2024 9:35 AM EDT [facility] Blood Structure of peripheral vein / Unknown 03/15/2024 8:31 AM EDT 03/15/2024 8:31 AM EDT us Lidia [place] PREASSEMBLER AND INSPECTOR LAB BLOOD ORDERABLES Final R esult [facility] [address] [place] [address], documented in this encounter Visit Diagnoses Diagnosis [...] documented as of this encounter Care Teams Mandate Retail Service Merchandiser Relationship Specialty Start Date End Date Uday Sheehan [address] [place] [address] [place] [address] PCP - General Internal Medicine 03/27/24 documented as of this encounter
--- OUTSIDE RECORDS SUMMARY | 2024-08-20 13:16 | XMS_ITS | Encounter Summary ---
Author Organization [facility] Address [address] [place] [address] Care Team Providers Care Hand Booked Folder And Stitcher Name Role Phone Uday Sheehan Primary Care Provider [phone] Encounter Details Date Type Department Care Team (Late st Contact Info) Description 05/23/2024 Lab Requisition [facility] Lab [address] [place] [address] Lidia Barry, CB [address] [place] [address] Acute and chronic respiratory failure with hypoxia [...] Associated Diagnosis Comments CBC AUTO DIFFERENTIAL Routine 05/23/2024 9:28 AM EST Acute and chronic respiratory failure with hypoxia (HCC) No diagnosis SEDIMENTATION RATE, AUTOMATED Routine 05/23/2024 9:28 AM EST Acute and chronic respiratory failure with hypoxia (HCC) No diagnosis C-REACTIVE PROTEIN Routine 05/23/2024 9: 28 AM EST Acute and chronic respiratory failure with hypoxia (HCC) No diagnosis COMPREHENSIVE METABOLIC PANEL Routine 05/23/2024 9:28 AM EST Acute and chronic respiratory failure with hypoxia (HCC) No diagnosis documented in this encounter Results * Due to [place] state law, this organization might not be sharing negative HIV tests. * (ABNORMAL) Sedimentation Rate (05/23/2024 9:28 AM EST) Sed Rate 77(H) 0 - 19 mm/Hr 05/23/2024 10:52 AM EST [facility] Blood Structure of peripheral vein / Unknown Venipuncture / Unknown 05/23/2024 9:28 AM EST 05/23/2024 10:40 AM EST [facility] [employer] LAB BLOOD ORDERABLES Final R esult Performing Organization Address City/State/[facility] Co de Phone Number [facility] [address] [facility] [address] [place] [address], [place] [phone] * (ABNORMAL) CBC Auto Differential (05/23/2024 9:28 AM EST) WBC 7.1 4.8 - 10.8 10*3/uL 05/23/2024 10:51 AM EST [facility] RBC 3.05(L) 4.70 - 6.10 10*6/uL 05/23/2024 10:51 AM EST [facility] Hemoglobin 8.5(L) 13.7 - 16.5 g/dL 05/23/2024 10:51 AM EST [facility] Hematocrit 26.6(L) 40.5 - 48.5 % 05/23/2024 10:51 AM EST [facility] MCV 87.2 80.0 - 94.0 fL 05/23/2024 10:51 AM EST [facility] MCH 27.9 26.0 - 34.0 pg 05/23/2024 10:51 AM [facility] MCHC 32.0 31.0 - 36.0 g/dL 05/23/2024 10:51 AM [facility] RDW 16.9(H) 12.0 - 15.0 % 05/23/2024 10:51 AM [facility] RDW Standard Deviation 54.4(H) 35.1 - 43.9 fL 05/23/2024 10:51 AM [facility] Platelets 136(L) 140 - 440 10*3/uL 05/23/2024 10:51 AM [facility] MPV 10.1 9.4 - 12.4 fL 05/23/2024 10:51 AM [facility] Neutrophil % 60.6 50.0 - 75.0 % 05/23/2024 10:51 AM [facility] Immature Grans % 0.3 0.0 - 0.9 % 05/23/2024 10:51 AM [facility] Lymphocyte % 21.6 20.0 - 44.0 % 05/23/2024 10:51 AM [facility] Monocyte % 12.6 0.0 - 14.0 % 05/23/2024 10:51 AM [facility] Eosinophil % 4.3 0.0 - 5.0 % 05/23/2024 10:51 AM [facility] Basophil % 0.6 0.0 - 2.0 % 05/23/2024 10:51 AM [facility] Neutrophil # 4.33 1.80 - 7.70 10*3/uL 05/23/2024 10:51 AM [facility] Immature Grans # <0.03 0.00 - 0.03 10*3/uL 05/23/2024 10:51 AM [facility] Lymphocyte # 1.50 1.00 - 4.75 10*3/uL 05/23/2024 10:51 AM [facility] Monocyte # 0.90 0.00 - 6.00 10*3/uL 05/23/2024 10:51 AM EST [facility] Eosinophil # 0.30 0.00 - 0.80 10*3/uL 05/23/2024 10:51 AM EST [facility] Basophil # <0.03 0.00 - 0.20 10*3/uL 05/23/2024 10:51 AM EST [facility] nRBC % 0.0 0 - 0 /100 WBCs 05/23/2024 10:51 AM EST [facility] nRBC # <0.01 0.00 - 0.13 10*3/uL 05/23/2024 10:51 AM EST [facility] Blood Structure of peripheral vein / Unknown Venipuncture / Unknown 05/23/2024 9:28 AM EST 05/23/2024 10:40 AM EST [facility] LAB BLOOD ORDERABLES Final R esult Performing Organization Address City/[facility]/ZIP Co de Phone Number [facility] [address] [address], [place] [phone] * (ABNORMAL) C-Reactive Protein (05/23/2024 9:28 AM EST) [facility] C Reactive Protein 12.4(H) <=10.0 mg/L 05/23/2024 11:08 AM EST [facility] Blood Structure of peripheral vein / Unknown Venipuncture / Unknown 05/23/2024 9:28 AM EST 05/23/2024 10:40 AM EST [facility] LAB BLOOD ORDERABLES Final R [facility] Performing Organization Address City/[facility]/ZIP Co de Phone Number [facility] [address] [address], [place] [phone] * (ABNORMAL) Comprehensive Metabolic Panel (05/23/2024 9:28 AM EST) Pathologist [facility] NA 142 136 - 145 mmol/L 05/23/2024 11:08 AM [facility] K 3.9 3.5 - 5.1 mmol/L 05/23/2024 11:08 AM [facility] Cl 104 98 - 109 mmol/L 05/23/2024 11:08 AM [facility] CO2 27 22 - 32 mmol/L 05/23/2024 11:08 AM [facility] Anion Gap 15 >=0 05/23/2024 11:08 AM [facility] Glucose 102(H) 60 - 99 mg/dL 05/23/2024 11:08 AM [facility] Creatinine 1.65(H) 0.50 - 1.12 mg/dL 05/23/2024 11:08 AM [facility] Calcium 9.1 8.4 - 10.4 mg/dL 05/23/2024 11:08 AM [facility] Total Protein 6.2(L) 6.6 - 8.7 g/dL 05/23/2024 11:08 AM [facility] Albumin 3.1(L) 3.5 - 5.0 g/dL 05/23/2024 11:08 AM [facility] Bilirubin, Total 0.2 0.2 - 1.2 mg/dL 05/23/2024 11:08 AM [facility] Alkaline Phosphatase 117 40 - 129 U/L 05/23/2024 11:08 AM [facility] AST 23 0 - 40 U/L 05/23/2024 11:08 AM [facility] ALT 14 <=41 U/L 05/23/2024 11:08 AM [facility] BUN 39(H) 8 - 23 mg/dL 05/23/2024 11:08 AM [facility] eGFR 41(L) >=60 mL/min/1. 73m2 05/23/2024 11:08 AM [facility] Comment:The estimated glomer ular filtration [...] Globulin, Total 3.1 2.1 - 4.2 g/dL 05/23/2024 11:08 AM EST [facility] A/G Ratio 1.0(L) 1.5 - 3.0 05/23/2024 11:08 AM EST [facility] Blood Structure of peripheral vein / Unknown Venipuncture / Unknown 05/23/2024 9:28 AM EST 05/23/2024 10:40 AM EST Lidia Barry LAB BLOOD ORDERABLES Final R esult Performing Organization Address City/State/[facility] Co de Phone Number [facility] [address] [facility] [address] [place] [address], documented in this encounter Visit Diagnoses Diagnosis Acute and chronic respiratory failure with hypoxia (HCC) No diagnosis documented in this encounter Additional Health Concerns Infection Onset Date Last Indicated Resolved Time Multidrug resistant organisms MRSA 03/25/20242023 documented as of this encounter Care Teams Hand Booked Folder And Stitcher Relationship Specialty Start Date End Date Uday Sheehan [address] [place] [address] [place] [address] PCP - General Internal Medicine 03/27/24 documented as of this encounter
--- OUTSIDE RECORDS SUMMARY | 2024-08-20 13:16 | XMS_ITS | Encounter Summary ---
Author Organization [facility] Address [address] [place] [address] Care Team Providers Care Color Shop Helper Name Role Phone Uday Sheehan MD Primary Care Provider [phone] Encounter Details Date Type Department Care Team (Late st Contact Info) Description 06/26/2024 Lab Requisition [facility] [address] [place] [id number] Natanael Rodney PA [address] [place] [phone] Anemia, unspecified Social History Tobacco Use Types [...] Associated Diagnosis Comments COMPLETE BLOOD COUNT Routine 06/26/2024 5:40 AM EST Anemia, unspecified documented in this encounter Results * (ABNORMAL) Complete blood count (06/26/2024 5:40 AM EST) WBC 10.2 4.8 - 10.8 K/[facility] LAB HEMETOLOGY METHOD 06/26/2024 1:31 PM EST [facility] RBC 2.70(L) 4.50 - 5.50 M/[facility] LAB HEMETOLOGY METHOD 06/26/2024 1:31 PM EST [facility] Hemoglobin 7.1(L) 13.5 - 17.5 g/dL LAB HEMETOLOGY METHOD 06/26/2024 1:31 PM EST [facility] Hematocrit 23.9(L) 42.0 - 54.0 % LAB HEMETOLOGY METHOD 06/26/2024 1:31 PM [facility] MCV 88.2 79.0 - 98.0 [place] LAB HEMETOLOGY METHOD 06/26/2024 1:31 PM [facility] MCH 26.2(L) 27.0 - 32.0 pcg LAB HEMETOLOGY METHOD 06/26/2024 1:31 PM EST [facility] MCHC 29.7(L) 32.0 - 37.0 g/dL LAB HEMETOLOGY METHOD 06/26/2024 1:31 PM [facility] RDW 18.0(H) 11.0 - 15.0 % LAB HEMETOLOGY METHOD 06/26/2024 1:31 PM [facility] Platelets 196 130 - 400 K/mcL LAB HEMETOLOGY METHOD 06/26/2024 1:31 PM EST [facility] MPV 10.2 7.0 - 11.0 FL LAB HEMETOLOGY METHOD 06/26/2024 1:31 PM [facility] NRBC 0.0 <1.0 % LAB HEMETOLOGY METHOD 06/26/2024 1:31 PM [facility] NRBC Absolute 0.00 <0.10 K/mcL LAB HEMETOLOGY METHOD 06/26/2024 1:31 PM [facility] Blood Venous blood specimen / Unknown Venipuncture / Unknown 06/26/2024 5:40 AM EST 06/26/2024 12:19 PM EST us Natanael [facility] LAB BLOOD ORDERABLES Final Re sult [facility] [address] [place] [address], documented in this encounter Visit Diagnoses Diagnosis Anemia, unspecified documented in this encounter Additional Health Concerns Infection Onset Date Last Indicated Resolved Time ESBL 06/22/2024 06/22/2024 documented as of this encounter Care Teams Color Shop Helper Relationship Specialty Start Date End Date Uday Sheehan MD [address] [place] [address] Dr Donna [place] PCP - General Dope Firer 12/19/16 documented as of this encounter
--- OUTSIDE RECORDS SUMMARY | 2024-08-20 13:16 | XMS_ITS | Encounter Summary ---
Author Organization [facility] Address [address] [place] [address] Care Team Providers Care Well Control Instructor Name Role Phone Uday Sheehan Primary Care Provider Encounter Details Date Type Department Care Team (Late st Contact Info) Description 03/11/2024 Lab Requisition [facility] [address] [place] [address] [phone] Valarie Pierson MD [address] [place] [phone] Acute and chronic respiratory failure with hypoxia [...] documented as of this encounter Care Teams Well Control Instructor Relationship Specialty Start Date End Date Uday Sheehan [address] [place] [address] [place] [address] PCP - General Internal Medicine 03/27/24 documented as of this encounter
--- OUTSIDE RECORDS SUMMARY | 2024-08-20 13:16 | XMS_ITS | Patient Health Record ---
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) Active confirmed [id number] Problem Hypertension, unspecified type (I10) Active confirmed 50545745 Problem Gastroesophageal reflux disease, unspecified whether esophagitis present (K21.9) Active confirmed [id number] PLAN OF TREATMENT Pending Test Test Name Order Date XR GI SERIES 03/14/2018 Pathology 09/13/2021 Future Test Test Name Order Date UPPER GI ENDOSCOPY 08/06/2021 Insurance Providers Payer Name Payer Address Payer Phone Subscriber Number Group Number Insured Name Patient Relationship to Insured Coverage Start Date Coverage End Date MEDICARE OF [place] [address] [place] [address] [phone] [id number] RIZWANA ANDREW Self - patient is the insured [employer] ATT[employer] CLAIMS [address] [place] [address] [phone] [id number] RIZWANA ANDREW Self - patient is the insured MEDICAL (GENERAL) HISTORY Medical History History ICD Code Nephrolithiasis Hyperlipidemia Denies MO,DM,CVA,Lung disease,renal dise ase Afib--2 unsuccessful ablatio n porcedures--sees Dr. Villalobos-cardiology at [facility]--s/p cardioversion 07/2021 at [facility] with Dr. Briones---he has had [...]
--- OUTSIDE RECORDS SUMMARY | 2024-08-20 13:16 | XMS_ITS | Encounter Summary ---
Author Organization [facility] Address [address] [place] [address] Care Team Providers Care Tabulating Machine Mechanic Name Role Phone Uday Sheehan Primary Care Provider [phone] Encounter Details Date Type Department Care Team (Late st Contact Info) Description 03/17/2024 Lab Requisition [facility] Lab [address] [place] [address] Cecilio Bautista PA [address] [place] [address] Acute respiratory failure with hypoxia (HCC) Social History Tobacco Use Types Packs/Day Years [...] of this encounter Procedures * Due to [place] [employer] law, this organization might not be sharing negative HIV tests. Procedure Name Priority Date/Time Associated Diagnosis Comments C DIFF TOXIN B PCR W/[facility]LEX TO [facility] - [facility] Routine 03/17/2024 7:46 AM EDT Acute respiratory failure with hypoxia (HCC) documented in this encounter Results * Due to [place] [employer] law, this organization might not be sharing negative HIV tests. * C diff Toxin B PCR w/Reflex to [facility] Toxin (03/17/2024 7:46 AM EDT) C diff PCR Not Detected Not Detected CEPHEID GENEXPERT 03/17/2024 9:01 AM EDT [facility] Stool Rectal route / Unknown 03/17/2024 7:46 AM EDT 03/17/2024 7:46 AM EDT Narrative [facility] - 03/17/2024 9:01 AM EDT Methodology: Real-time polymerase chain reaction (PCR) to detect the toxin B gene of toxigenic Clostridioides difficile (C. difficile) in unformed (liquid or soft) stool specimens obtained from patients suspected of having C. difficile infections (CDI). us Cecilio [facility] LAB BODY FLUIDS AND STOOLS O RDERABLES Final Result [facility] [address] [place] [address] [address] [place] [address], documented in this encounter Visit Diagnoses Diagnosis Acute respiratory failure with hypoxia (HCC) documented in this encounter Additional Health Concerns Infection Onset Date Last Indicated Resolved Time Multidrug resistant organisms MRSA 03/25/20242023 R/O Respiratory Virus Infection 03/28/2024 03/28/2024 5:39 PM EDT R/O Influenza 03/28/2024 03/28/2024 03/28/2024 5:3 9 PM EDT R/O C.diff 03/29/2024 03/30/2024 04/01/2024 12:4 2 PM EDT documented as of this encounter Care Teams Tabulating Machine Mechanic Relationship Specialty Start Date End Date Uday Sheehan [address] [place] [address] [place] [address] PCP - General Internal Medicine 03/27/24 documented as of this encounter
--- OUTSIDE RECORDS SUMMARY | 2024-08-20 13:16 | XMS_ITS | Encounter Summary ---
Author Organization [facility] Address [address] [place] [address] Care Team Providers Care Seismograph Observer Name Role Phone Uday Sheehan Primary Care Provider [phone] Encounter Details Date Type Department Care Team (Late st Contact Info) Description 03/12/2024 Lab Requisition [facility] [address] [place] [address] Valarie Pierson MD [address] [place] [address] Acute and chronic respiratory failure with hypoxia [...] Name Priority Date/Time Associated Diagnosis Comments RESPIRATORY PANEL PLUS, SURVEYOR GEODETIC SWAB ([facility]) Routine 03/12/2024 9:35 AM EDT Acute and chronic respiratory failure with hypoxia (HCC) No diagnosis CBC AUTO DIFFERENTIAL Routine 03/12/2024 9:35 AM EDT Acute and chronic respiratory failure with hypoxia (HCC) No diagnosis METHICILLIN RESISTANT STAPHYLOCOCCUS AUREUS (MRSA) CULTURE SCREEN Routine 03/12/2024 9:35 AM EDT Acute and chronic respiratory failure with hypoxia (HCC) No diagnosis TSH Routine 03/12/2024 9:35 AM EDT Acute and chronic respiratory failure with hypoxia (HCC) No diagnosis COMPREHENSIVE METABOLIC PANEL Routine 03/12/2024 9:35 AM EDT Acute and chronic respiratory failure with hypoxia (HCC) No diagnosis documented in this encounter Results * Due to [place] state law, this organization might not be sharing negative HIV tests. * Respiratory Panel w/Sars-CoV-2, SURVEYOR GEODETIC Swab - [place] only (03/12/2024 9:35 AM EDT) Adenovirus DNA (PCR) Not Detected Not Detected QIAGEN QIASTAT-D X 03/12/2024 11:56 AM EDT [facility] Human Coronavirus 229E RNA (PCR) Not Detected Not Detected QIAGEN QIASTAT-D X 03/12/2024 11:56 AM EDT [facility] Human Coronavirus HKU1 RNA (PCR) Not Detected Not Detected QIAGEN QIASTAT-D X 03/12/2024 11:56 AM EDT [facility] Human Coronavirus NL63 RNA (PCR) Not Detected Not Detected QIAGEN QIASTAT-D X 03/12/2024 11:56 AM EDT [facility] Human Coronavirus OC43 RNA (PCR) Not Detected Not Detected QIAGEN QIASTAT-D X 03/12/2024 11:56 AM EDT [facility] Human Metapneumovirus RNA (PCR) Not Detected Not Detected QIAGEN QIASTAT-D X 03/12/2024 11:56 AM EDT [facility] Influenza A RNA (PCR) Not Detected Not Detected QIAGEN QIASTAT-D X 03/12/2024 11:56 AM EDT [facility] Influenza A H1 RNA (PCR) Not Detected Not Detected QIAGEN QIASTAT-D X 03/12/2024 11:56 AM EDT [facility] Influenza A H3 RNA (PCR) Not Detected Not Detected QIAGEN QIASTAT-D X 03/12/2024 11:56 AM EDT [facility] Influenza A H1N1 RNA (PCR) Not Detected Not Detected QIAGEN QIASTAT-D X 03/12/2024 11:56 AM EDT [facility] Influenza B RNA (PCR) Not Detected Not Detected QIAGEN QIASTAT-D X 03/12/2024 11:56 AM EDT [facility] Parainfluenza 1 RNA (PCR) Not Detected Not Detected QIAGEN QIASTAT-D X 03/12/2024 11:56 AM EDT [facility] Parainfluenza 2 RNA (PCR) Not Detected Not Detected QIAGEN QIASTAT-D X 03/12/2024 11:56 AM EDT [facility] Parainfluenza 3 RNA (PCR) Not Detected Not Detected QIAGEN QIASTAT-D X 03/12/2024 11:56 AM EDT [facility] Parainfluenza 4 RNA (PCR) Not Detected Not Detected QIAGEN QIASTAT-D X 03/12/2024 11:56 AM EDT [facility] Human Rhinovirus/Enterov irus RNA (PCR) Not Detected Not Detected QIAGEN QIASTAT-D X 03/12/2024 11:56 AM EDT [facility] RSV RNA (PCR) Not Detected Not Detected QIAGEN QIASTAT-D X 03/12/2024 11:56 AM EDT [facility] SARS CoV-2 RNA (PCR) Not Detected Not Detected QIAGEN QIASTAT-D X 03/12/2024 11:56 AM EDT [facility] Bordetella pertussis DNA (PCR) Not Detected Not Detected QIAGEN QIASTAT-D X 03/12/2024 11:56 AM EDT [facility] Chlamydophila pneumoniae DNA (PCR) Not Detected Not Detected QIAGEN QIASTAT-D X 03/12/2024 11:56 AM EDT [facility] Mycoplasma pneumoniae DNA (PCR) Not Detected Not Detected QIAGEN QIASTAT-D X 03/12/2024 11:56 AM EDT [facility] Nasopharyngeal Swab Specimen from nasopharyngeal structure / Unknown 03/12/2024 9:35 AM EDT 03/12/2024 9:58 AM EDT Narrative [facility] - 03/12/2024 11:56 AM EDT Methodology: Multiplexed nucleic acid real-time PCR assay intended for the qualitative detection and differentiation of nucleic acid from multiple respiratory viral and bacterial organisms. The QIAstat-Dx Respiratory SARS-CoV-2 Panel is authorized for use on respiratory specimens from individuals suspected of COVID-19 by their healthcare provider. The [place] FDA has made this test available under an Emergency Use Authorization (EUA). A negative test result for COVID-19 means that SARS-CoV-2 RNA was not present in the specimen above the limit of detection. However, a negative result does not rule out COVID-19 and should not be used as the sole basis for treatment or patient management decisions. A positive test result for COVID-19 indicates that RNA from SARS-CoV-2 was detected, and the patient is infected with the virus and is presumed to be contagious. A negative result for the other respiratory pathogens indicates that nucleic acids of the other respiratory pathogens were not detected in the specimen. Laboratory test results should always be considered in the context of clinical observations and epidemiological data in making a final diagnosis and patient management decisions. Patient management should follow current CDC guidelines. A positive result for the other respiratory pathogens (ie, Rhino/Enterovirus, Influenza), indicates that nucleic acids (RNA/DNA) of that pathogen were present in the specimen above the limit of detection. us Valarie Pierson MD LAB BODY FLUIDS AND STOOLS ORD ERABLES Final Result [facility] [address] [facility] [address] [place] [address], * Methicillin Resistant Staphylococcus aureus (MRSA) Culture Screen (03/12/2024 9:35 AM EDT) Pathologist [facility] MRSA Culture No methicillin resistant Staphylococcus aureus (MRSA) isolated. [place] [facility] 03/14/2024 7:25 AM EDT [facility] Swab Nasal structure / Unknown 03/12/2024 9:35 AM EDT 03/12/2024 9:58 AM EDT Valarie Pierson MD LAB MICROBIOLOGY - GENERAL ORD ERABLES Final Result [facility] [address] [place] [address], * (ABNORMAL) CBC Auto Differential (03/12/2024 9:35 AM EDT) WBC 7.1 4.8 - 10.8 10*3/uL 03/12/2024 10:00 AM EDT [facility] RBC 3.25(L) 4.70 - 6.10 10*6/uL 03/12/2024 10:00 AM EDT [facility] Hemoglobin 9.2(L) 13.7 - 16.5 g/dL 03/12/2024 10:00 AM EDT [facility] Hematocrit 28.1(L) 40.5 - 48.5 % 03/12/2024 10:00 AM EDT [facility] MCV 86.5 80.0 - 94.0 fL 03/12/2024 10:00 AM EDT [facility] MCH 28.3 26.0 - 34.0 pg 03/12/2024 10:00 AM EDT [facility] MCHC 32.7 31.0 - 36.0 g/dL 03/12/2024 10:00 AM EDT [facility] RDW 15.0 12.0 - 15.0 % 03/12/2024 10:00 AM EDT [facility] RDW Standard Deviation 47.8(H) 35.1 - 43.9 fL 03/12/2024 10:00 AM EDT [facility] Platelets 124(L) 140 - 440 10*3/uL 03/12/2024 10:00 AM EDT [facility] MPV 10.6 9.4 - 12.4 fL 03/12/2024 10:00 AM EDT [facility] Neutrophil % 56.8 50.0 - 75.0 % 03/12/2024 10:00 AM EDT [facility] Immature Grans % 0.3 0.0 - 0.9 % 03/12/2024 10:00 AM EDT [facility] Lymphocyte % 27.0 20.0 - 44.0 % 03/12/2024 10:00 AM EDT [facility] Monocyte % 11.5 0.0 - 14.0 % 03/12/2024 10:00 AM EDT [facility] Eosinophil % 3.8 0.0 - 5.0 % 03/12/2024 10:00 AM EDT [facility] Basophil % 0.6 0.0 - 2.0 % 03/12/2024 10:00 AM EDT [facility] Neutrophil # 4.03 1.80 - 7.70 10*3/uL 03/12/2024 10:00 AM EDT [facility] Immature Grans # <0.03 0.00 - 0.03 10*3/uL 03/12/2024 10:00 AM EDT [facility] Lymphocyte # 1.90 1.00 - 4.75 10*3/uL 03/12/2024 10:00 AM EDT [facility] Monocyte # 0.80 0.00 - 6.00 10*3/uL 03/12/2024 10:00 AM EDT [facility] Eosinophil # 0.30 0.00 - 0.80 10*3/uL 03/12/2024 10:00 AM EDT [facility] Basophil # <0.03 0.00 - 0.20 10*3/uL 03/12/2024 10:00 AM EDT [facility] nRBC % 0.0 0 - 0 /100 WBCs 03/12/2024 10:00 AM EDT [facility] nRBC # <0.01 0.00 - 0.13 10*3/uL 03/12/2024 10:00 AM EDT [facility] Blood Structure of peripheral vein / Unknown 03/12/2024 9:35 AM EDT 03/12/2024 9:35 AM EDT us Valarie Pierson MD LAB BLOOD ORDERABLES Final Res ult Performing Organization Address [facility]/ZIP Co de Phone Number [facility] [address] [address], [place] [phone] * (ABNORMAL) TSH (03/12/2024 9:35 AM EDT) TSH 11.100(H) 0.270 - 4.200 uIU/mL 03/12/2024 10:37 AM EDT [facility] Blood Structure of peripheral vein / Unknown 03/12/2024 9:35 AM EDT 03/12/2024 9:35 AM EDT Valarie Pierson MD LAB BLOOD ORDERABLES Final Res ult Performing Organization Address City/[facility]/ZIP Co de Phone Number [facility] [address] [place] [address], [place] [phone] * (ABNORMAL) Comprehensive Metabolic Panel (03/12/2024 9:35 AM EDT) NA 137 136 - 145 mmol/L 03/12/2024 10:37 AM EDT [facility] K 3.9 3.5 - 5.1 mmol/L 03/12/2024 10:37 AM EDT [facility] Cl 101 98 - 109 mmol/L 03/12/2024 10:37 AM EDT [facility] CO2 27 23 - 32 mmol/L 03/12/2024 10:37 AM EDT [facility] Anion Gap 13 >=0 03/12/2024 10:37 AM EDT [facility] Glucose 99 60 - 99 mg/dL 03/12/2024 10:[facility] Creatinine 1.08 0.50 - 1.12 mg/dL 03/12/2024 10:37 AM [facility] Calcium 9.4 8.4 - 10.4 mg/dL 03/12/2024 10:37 AM [facility] Total Protein 6.6 6.6 - 8.7 g/dL 03/12/2024 10:37 AM [facility] Albumin 3.2(L) 3.5 - 5.0 g/dL 03/12/2024 10:37 AM [facility] Bilirubin, Total 0.4 0.2 - 1.2 mg/dL 03/12/2024 10:37 AM [facility] Alkaline Phosphatase 109 40 - 129 U/L 03/12/2024 10:37 AM [facility] AST 62(H) 0 - 40 U/L 03/12/2024 10:37 AM [facility] ALT 65(H) <=41 U/L 03/12/2024 10:37 AM [facility] BUN 14 8 - 23 mg/dL 03/12/2024 10:37 AM [facility] eGFR 68 >=60 mL/min/1. 73m2 03/12/2024 10:37 AM [facility] Comment:The estimated glomer ular filtration [...] in Diagnosing Kidney Disease . Globulin, Total 3.4 2.1 - 4.2 g/dL 03/12/2024 10:37 AM [facility] A/G Ratio 0.9(L) 1.5 - 3.0 03/12/2024 10:37 AM EDT [facility] Blood Structure of peripheral vein / Unknown 03/12/2024 9:35 AM EDT 03/12/2024 9:35 AM EDT Valarie Pierson MD LAB BLOOD ORDERABLES Final Res ult [facility] [address] [place] [address], documented in this encounter Visit Diagnoses Diagnosis [...] documented as of this encounter Care Teams Seismograph Observer Relationship Specialty Start Date End Date Uday Sheehan [address] [place] [address] [place] [address] PCP - General Internal Medicine 03/27/24 documented as of this encounter
--- OUTSIDE RECORDS SUMMARY | 2024-08-20 13:16 | XMS_ITS | Encounter Summary ---
Author Organization [facility] Address [address] [place] [address] Care Team Providers Care Pot Room Tapper Name Role Phone Uday Sheehan Primary Care Provider [phone] Encounter Details Date Type Department Care Team (Late st Contact Info) Description 05/20/2024 Lab Requisition [facility] [address] [place] [address] Salo hWyte MD [address] [place] [address] Acute and chronic respiratory failure with hypoxia [...] of this encounter Procedures * Due to [place] state law, this organization might not be sharing negative HIV tests. Procedure Name Priority Date/Time Associated Diagnosis Comments CBC AUTO DIFFERENTIAL Routine 05/20/2024 10:25 AM EST Acute and chronic respiratory failure with hypoxia (HCC) No diagnosis COMPREHENSIVE METABOLIC PANEL Routine 05/20/2024 10:25 AM EST Acute and chronic respiratory failure with hypoxia (HCC) No diagnosis documented in this encounter Results * Due to [place] state law, this organization might not be sharing negative HIV tests. * (ABNORMAL) CBC Auto Differential (05/20/2024 10:25 AM EST) WBC 5.4 4.8 - 10.8 10*3/uL 05/20/2024 10:48 AM EST [facility] RBC 3.05(L) 4.70 - 6.10 10*6/uL 05/20/2024 10:48 AM EST [facility] Hemoglobin 8.3(L) 13.7 - 16.5 g/dL 05/20/2024 10:48 AM EST [facility] Hematocrit 26.4(L) 40.5 - 48.5 % 05/20/2024 10:48 AM EST [facility] MCV 86.6 80.0 - 94.0 fL 05/20/2024 10:48 AM EST [facility] MCH 27.2 26.0 - 34.0 pg 05/20/2024 10:48 AM EST [facility] MCHC 31.4 31.0 - 36.0 g/dL 05/20/2024 10:48 AM [facility] RDW 16.9(H) 12.0 - 15.0 % 05/20/2024 10:48 AM EST [facility] RDW Standard Deviation 53.1(H) 35.1 - 43.9 fL 05/20/2024 10:48 AM EST [facility] Platelets 141 140 - 440 10*3/uL 05/20/2024 10:48 AM EST [facility] MPV 10.0 9.4 - 12.4 fL 05/20/2024 10:48 AM EST [facility] Neutrophil % 50.4 50.0 - 75.0 % 05/20/2024 10:48 AM EST [facility] Immature Grans % 0.2 0.0 - 0.9 % 05/20/2024 10:48 AM EST [facility] Lymphocyte % 29.8 20.0 - 44.0 % 05/20/2024 10:48 AM EST [facility] Monocyte % 13.1 0.0 - 14.0 % 05/20/2024 10:48 AM EST [facility] Eosinophil % 5.9(H) 0.0 - 5.0 % 05/20/2024 10:48 AM EST [facility] Basophil % 0.6 0.0 - 2.0 % 05/20/2024 10:48 AM EST [facility] Neutrophil # 2.74 1.80 - 7.70 10*3/uL 05/20/2024 10:48 AM EST [facility] Immature Grans # <0.03 0.00 - 0.03 10*3/uL 05/20/2024 10:48 AM EST [facility] Lymphocyte # 1.60 1.00 - 4.75 10*3/uL 05/20/2024 10:48 AM EST [facility] Monocyte # 0.70 0.00 - 6.00 10*3/uL 05/20/2024 10:48 AM EST [facility] Eosinophil # 0.30 0.00 - 0.80 10*3/uL 05/20/2024 10:48 AM EST [facility] Basophil # <0.03 0.00 - 0.20 10*3/uL 05/20/2024 10:48 AM EST [facility] nRBC % 0.0 0 - 0 /100 WBCs 05/20/2024 10:48 AM EST [facility] nRBC # <0.01 0.00 - 0.13 10*3/uL 05/20/2024 10:48 AM EST [facility] Blood Structure of peripheral vein / Unknown Venipuncture / Unknown 05/20/2024 10:25 AM EST 05/20/2024 10:25 AM EST us Salo Whyte MD LAB BLOOD ORDERABLES Final Result [facility] [address] [place] [address] [address] [place] [address], [place] [phone] * (ABNORMAL) Comprehensive Metabolic Panel (05/20/2024 10:25 AM EST) NA 141 136 - 145 mmol/L 05/20/2024 11:11 AM EST [facility] K 3.7 3.5 - 5.1 mmol/L 05/20/2024 11:11 AM EST [facility] Cl 102 98 - 109 mmol/L 05/20/2024 11:11 AM EST [facility] CO2 27 22 - 32 mmol/L 05/20/2024 11:11 AM EST [facility] Anion Gap 16 >=0 05/20/2024 11:11 AM EST [facility] Glucose 91 60 - 99 mg/dL 05/20/2024 11:11 AM EST [facility] Creatinine 1.68(H) 0.50 - 1.12 mg/dL 05/20/2024 11:11 AM EST [facility] Calcium 9.4 8.4 - 10.4 mg/dL 05/20/2024 11:11 AM EST [facility] Total Protein 6.4(L) 6.6 - 8.7 g/dL 05/20/2024 11:11 AM EST [facility] Albumin 3.1(L) 3.5 - 5.0 g/dL 05/20/2024 11:11 AM EST [facility] Bilirubin, Total 0.2 0.2 - 1.2 mg/dL 05/20/2024 11:11 AM EST [facility] Alkaline Phosphatase 102 40 - 129 U/L 05/20/2024 11:11 AM EST [facility] AST 23 0 - 40 U/L 05/20/2024 11:11 AM EST [facility] ALT 17 <=41 U/L 05/20/2024 11:11 AM EST [facility] BUN 35(H) 8 - 23 mg/dL 05/20/2024 11:11 AM EST [facility] eGFR 40(L) >=60 mL/min/1. 73m2 05/20/2024 11:11 AM EST [facility] Comment:The estimated glomer ular filtration rate [...] Globulin, Total 3.3 2.1 - 4.2 g/dL 05/20/2024 11:11 AM EST [facility] A/G Ratio 0.9(L) 1.5 - 3.0 05/20/2024 11:11 AM EST [facility] Blood Structure of peripheral vein / Unknown Venipuncture / Unknown 05/20/2024 10:25 AM EST 05/20/2024 10:25 AM EST Salo Whyte MD LAB BLOOD ORDERABLES Final Result Performing Organization Address City/State/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
--- OUTSIDE RECORDS SUMMARY | 2024-08-20 13:16 | XMS_ITS | Clinical Summary ---
Author Organization [address] Address [address] [place] [phone] Phone Care Team Providers Care Sr. Manager Marketing Name Role Phone Uday Sheehan MD Primary Care Provider [phone] Encounters Date Type Department Care Team Description 08/18/2024 Lab Requisition [facility] - Main Lab [address] [place] [address] Tabby Bledsoe MD Bacteremia 08/09/2024 Lab Requisition [facility] - Main Lab [address] [place] [address] Tabby Bledsoe MD Bacteremia 08/05/2024 Lab Requisition [facility] [address] [place] [address] Tabby Bledsoe MD Urinary tract infection, site not specified 08/03/2024 Lab Requisition [facility] [address] [place] [address] Tabby Bledsoe MD Bacteremia 07/27/2024 Lab Requisition [facility] - Main Lab [address] [place] [address] Tabby Bledsoe MD Bacteremia 07/19/2024 Lab Requisition [facility] - Main Lab [address] [place] [address] Tabby Bledsoe MD Bacteremia 07/15/2024 Lab Requisition [facility] - Main Lab [address] [place] [address] Tabby Bledsoe MD Essential (primary) hypertension; Hypothyroidism, unspecified; Unspecified atrial fibrillation (CMS/HCC) 07/12/2024 Lab Requisition [facility] Main Lab [address] [place] [address] Tabby Bledsoe MD Bacteremia 07/11/2024 Lab Requisition [facility] Main Lab [address] [place] [address] Tabby Bledsoe MD Acute kidney failure, unspecified (CMS/HCC) 06/26/2024 Lab Requisition [facility] Lab [address] [place] [address] Natanael Rodney PA Anemia, unspecified 06/23/2024 Lab Requisition [facility] Lab [address] [place] [address] Pearl Garcia MD Other retention of urine 06/21/2024 Lab Requisition [facility] Lab [address] [place] [address] Pearl Garcia MD Unspecified atrial fibrillation (CMS/HCC); Essential (primary) hypertension 06/21/2024 Lab Requisition [facility] Lab [address] [place] [address] Zak Zuluaga MD Unspecified kidney failure; COVID-19 06/15/2024 Lab Requisition [facility] Lab [address] [place] [address] Zak Zuluaga MD Unspecified atrial fibrillation (CMS/HCC); Essential (primary) hypertension 06/13/2024 Lab Requisition [facility] Lab [address] [place] [address] Natanael Rodney MD Anemia, unspecified 06/12/2024 Lab Requisition [facility] Lab [address] [place] [phone] Pearl Garcia MD Abnormal results of liver function studies; Hypothyroidism, unspecified 06/11/2024 Lab Requisition [facility] Lab [address] [place] [phone] Zak Zuluaga MD Anemia, unspecified 06/07/2024 Lab Requisition [facility] Main Lab [address] [place] [phone] Zak Zuluaga MD Unspecified atrial fibrillation (CMS/HCC); Essential (primary) hypertension 06/05/2024 Lab Requisition [facility] Main Lab [address] [place] [phone] Natanael Rodney MD Chronic kidney disease, unspecified; Essential (primary) hypertension; Unspecified atrial fibrillation (CMS/HCC) 06/03/2024 Lab Requisition [facility] Lab [address] [place] [phone] Zak Zuluaga MD Hypothyroidism, unspecified; Essential (primary) hypertension; Unspecified atrial fibrillation (CMS/HCC) from Last 3 Months Social History Tobacco Use Types Packs/Day Years Used Date Smoking Tobacco: Never Assessed Sex and Gender Information Value Date Recorded Sex Assigned at Not on file Legal Sex Male 10:42 AM EST Gender Identity Not on file Sexual Orientation Not on file Plan of Treatment Health Maintenance Due Date Last Done Comments DTaP,Tdap,and Td Vaccines (1 - Tdap) 02/15/1947 Pneumococcal Vaccine: 50+ Years (1 of 1 - PCV) 02/15/1990 Zoster Vaccines (1 of 2) 02/15/1990 RSV Immunization Patients 60+ Years Old (1 - 1-dose 75+ series) 02/15/2015 Cholesterol Screening (Lipid Panel) 08/08/2023 Depression Screening 08/08/2023 Falls Risk Assessment 08/08/2023 Medicare Annual Wellness Visit 08/08/2023 Social Influencers of Health Screening 08/08/2023 COVID-19 Vaccine ( season) 2024 11/09/2021, 04/05/2021 Hypertension/CHF/CAD Annual BMP Blood Test 08/19/2025 08/19/2024, 08/05/2024, 07/29/2024, Additional history exists Influenza Vaccine Completed 04/08/2024 HIB Vaccines Aged Out No longer eligi ble based on patient's age to complete this topic HPV Vaccines Aged Out No longer eligi ble based on patient's age to complete this topic Hepatitis A Vaccines Aged Out No long er eligible based on patient's age to complete this topic Hepatitis B Vaccines Aged Out No long er eligible based on patient's age to complete this topic IPV Vaccines Aged Out No longer eligi ble based on patient's age to complete this topic MMR Vaccines Aged Out No longer eligi ble based on patient's age to complete this topic Meningococcal ACWY Vaccine Aged Out N o longer eligible based on patient's age to complete this topic Meningococcal B Vacine Aged Out No lo nger eligible based on patient's age to complete this topic RSV Immunization Patients Under 20 months Aged Out No longer eligible based on patient's age to complete this topic Varicella Vaccines Aged Out No longer eligible based on patient's age to complete this topic Procedures Procedure Name Priority Date/Time Associated Diagnosis Comments COMPREHENSIVE METABOLIC PANEL Routine 08/19/2024 8:46 AM EST Bacteremia COMPLETE BLOOD COUNT Routine 08/19/2024 8:46 AM EST Bacteremia COMPREHENSIVE METABOLIC PANEL Routine 08/05/2024 7:45 AM EST Bacteremia COMPLETE BLOOD COUNT Routine 08/05/2024 7:45 AM EST Bacteremia URINALYSIS WITH REFLEX MICROSCOPIC AND CULTURE Routine 08/03/2024 7:00 AM EST Urinary tract infection, site not specified [place] URINE CULTURE TUBE Routine 08/03/19 7:00 AM EST Urinary tract infection, site not specified URINALYSIS WITH REFLEX MICROSCOPIC AND CULTURE Routine 08/03/2024 7:00 AM EST Urinary tract infection, site not specified CULTURE URINE Routine 08/03/2024 7:00 AM EST Urinary tract infection, site not specified COMPREHENSIVE METABOLIC PANEL Routine 07/29/2024 10:02 AM EST Bacteremia COMPLETE BLOOD COUNT Routine 07/29/2024 10:02 AM EST Bacteremia COMPREHENSIVE METABOLIC PANEL Routine 07/22/2024 7:38 AM EST Bacteremia COMPLETE BLOOD COUNT Routine 07/22/2024 7:38 AM EST Bacteremia COMPREHENSIVE METABOLIC PANEL Routine 07/16/2024 5:50 AM EST Essential (primary) hypertension Hypothyroidism, unspecified Unspecified atrial fibrillation (CMS/HCC) COMPLETE BLOOD COUNT Routine 07/16/2024 5:50 AM EST Essential (primary) hypertension Hypothyroidism, unspecified Unspecified atrial fibrillation (CMS/HCC) COMPREHENSIVE METABOLIC PANEL Routine 07/11/2024 5:17 AM EST Acute kidney failure, unspecified (CMS/HCC) COMPLETE BLOOD COUNT Routine 07/11/2024 5:17 AM EST Acute kidney failure, unspecified (CMS/HCC) COMPLETE BLOOD COUNT Routine 06/26/2024 5:40 AM EST Anemia, unspecified COMPREHENSIVE METABOLIC PANEL Routine 06/24/2024 6:49 AM EST Unspecified atrial fibrillation (CMS/HCC) Essential (primary) hypertension COMPLETE BLOOD COUNT Routine 06/24/2024 6:49 AM EST Unspecified atrial fibrillation (CMS/HCC) Essential (primary) hypertension URINALYSIS WITH REFLEX MICROSCOPIC Routine 06/22/2024 12:00 AM EST Other retention of urine URINALYSIS WITH REFLEX MICROSCOPIC Routine 06/22/2024 12:00 AM EST Other retention of urine CULTURE URINE Routine 06/22/2024 12:00 AM EST Other retention of urine BASIC METABOLIC PANEL Routine 06/21/2024 6:57 AM EST Unspecified kidney failure COVID-19 COMPREHENSIVE METABOLIC PANEL Routine 06/17/2024 6:45 AM EST Unspecified atrial fibrillation (CMS/HCC) Essential (primary) hypertension COMPLETE BLOOD COUNT Routine 06/17/2024 6:45 AM EST Unspecified atrial fibrillation (CMS/HCC) Essential (primary) hypertension TRIIODOTHYRONINE FREE Routine 06/13/2024 7:00 AM EST Anemia, unspecified FREE THYROXINE WITH REFLEX TO FREE TRIIODOTHYRONINE Routine 06/13/2024 7:00 AM EST Anemia, unspecified THYROID STIMULATING HORMONE WITH REFLEX TO FREE T4 AND FREE T3 Routine 06/13/2024 7:00 AM EST Anemia, unspecified COMPREHENSIVE METABOLIC PANEL Routine 06/13/2024 7:00 AM EST Anemia, unspecified COMPLETE BLOOD COUNT Routine 06/13/2024 7:00 AM EST Anemia, unspecified THYROXINE FREE Routine 06/12/2024 9:20 AM EST Hypothyroidism, unspecified Abnormal results of liver function studies TRIIODOTHYRONINE FREE Routine 06/12/2024 9:20 AM EST Hypothyroidism, unspecified Abnormal results of liver function studies THYROID STIMULATING HORMONE Routine 06/12/2024 9:20 AM EST Hypothyroidism, unspecified Abnormal results of liver function studies ALANINE AMINOTRANSFERASE Routine 024 9:20 AM EST Hypothyroidism, unspecified Abnormal results of liver function studies ASPARTATE AMINOTRANSFERASE Routine 06/12/2024 9:20 AM EST Hypothyroidism, unspecified Abnormal results of liver function studies BASIC METABOLIC PANEL Routine 06/11/2024 8:24 AM EST Anemia, unspecified COMPLETE BLOOD COUNT Routine 06/11/2024 8:24 AM EST Anemia, unspecified COMPREHENSIVE METABOLIC PANEL Routine 06/10/2024 6:43 AM EST Unspecified atrial fibrillation (CMS/HCC) Essential (primary) hypertension COMPLETE BLOOD COUNT Routine 06/10/2024 6:43 AM EST Unspecified atrial fibrillation (CMS/HCC) Essential (primary) hypertension COMPLETE BLOOD COUNT Routine 06/05/2024 8:53 AM EST Chronic kidney disease, unspecified Essential (primary) hypertension Unspecified atrial fibrillation (CMS/HCC) TRIIODOTHYRONINE FREE Routine 06/03/2024 8:12 AM EST Hypothyroidism, unspecified Essential (primary) hypertension Unspecified atrial fibrillation (CMS/HCC) FREE THYROXINE WITH REFLEX TO FREE TRIIODOTHYRONINE Routine 06/03/2024 8:12 AM EST Hypothyroidism, unspecified Essential (primary) hypertension Unspecified atrial fibrillation (CMS/HCC) THYROID STIMULATING HORMONE WITH REFLEX TO FREE T4 AND FREE T3 Routine 06/03/2024 8:12 AM EST Hypothyroidism, unspecified Essential (primary) hypertension Unspecified atrial fibrillation (CMS/HCC) COMPREHENSIVE METABOLIC PANEL Routine 06/03/2024 8:12 AM EST Hypothyroidism, unspecified Essential (primary) hypertension Unspecified atrial fibrillation (CMS/HCC) COMPLETE BLOOD COUNT Routine 06/03/2024 8:12 AM EST Hypothyroidism, unspecified Essential (primary) hypertension Unspecified atrial fibrillation (CMS/HCC) from Last 3 Months Results * (ABNORMAL) Complete blood count (08/19/2024 8:46 AM EST) Only the most recent of14 resultswithin the time period is included. WBC 6.3 4.8 - 10.8 K/mcL LAB HEMETOLOGY METHOD 08/19/2024 1:38 PM EST [facility] RBC 2.80(L) 4.50 - 5.50 M/mcL LAB HEMETOLOGY METHOD 08/19/2024 1:38 PM [facility] Hemoglobin 7.5(L) 13.5 - 17.5 g/dL LAB HEMETOLOGY METHOD 08/19/2024 1:38 PM [facility] Hematocrit 25.6(L) 42.0 - 54.0 % LAB HEMETOLOGY METHOD 08/19/2024 1:38 PM [facility] MCV 92.4 79.0 - 98.0 FL LAB HEMETOLOGY METHOD 08/19/2024 1:38 PM [facility] MCH 27.1 27.0 - 32.0 pcg LAB HEMETOLOGY METHOD 08/19/2024 1:38 PM [facility] MCHC 29.3(L) 32.0 - 37.0 g/dL LAB HEMETOLOGY METHOD 08/19/2024 1:38 PM [facility] RDW 19.2(H) 11.0 - 15.0 % LAB HEMETOLOGY METHOD 08/19/2024 1:38 PM [facility] Platelets 289 130 - 400 K/mcL LAB HEMETOLOGY METHOD 08/19/2024 1:38 PM [facility] MPV 9.1 7.0 - 11.0 FL LAB HEMETOLOGY METHOD 08/19/2024 1:38 PM [facility] NRBC 0.0 <1.0 % LAB HEMETOLOGY METHOD 08/19/2024 1:38 PM [facility] NRBC Absolute 0.00 <0.10 K/mcL LAB HEMETOLOGY METHOD 08/19/2024 1:38 PM [facility] Blood Venous blood specimen / Unknown Venipuncture / Unknown 08/19/2024 8:46 AM EST 08/19/2024 12:22 PM EST Tabby Bledsoe MD LAB BLOOD ORDERABLES Fin al Result [facility] [address] [place] [address], * (ABNORMAL) Comprehensive metabolic panel (08/19/2024 8:46 AM EST) Only the most recent of11 resultswithin the time period is included. Sodium 145 133 - 145 mmol/L LAB CHEMISTRY METHOD 08/19/2024 3:13 PM [facility] Potassium 4.0 3.5 - 5.5 mmol/L LAB CHEMISTRY METHOD 08/19/2024 3:13 PM [facility] Chloride 111(H) 96 - 110 mmol/L LAB CHEMISTRY METHOD 08/19/2024 3:13 PM [facility] CO2 25 21 - 32 mmol/L LAB CHEMISTRY METHOD 08/19/2024 3:13 PM [facility] Anion Gap 9 3 - 11 LAB CHEMISTRY METHOD 08/19/2024 3:13 PM [facility] Glucose 90 70 - 100 mg/dL LAB CHEMISTRY METHOD 08/19/2024 3:13 PM [facility] BUN 23 5 - 25 mg/dL LAB CHEMISTRY METHOD 08/19/2024 3:13 PM [facility] Creatinine 1.46(H) 0.70 - 1.30 mg/dL LAB CHEMISTRY METHOD 08/19/2024 3:13 PM [facility] eGFR 47(L) >=60 mL/min/1. 73m2 LAB CHEMISTRY METHOD 08/19/2024 3:13 PM [facility] Comment:Calculation based on the??Chronic Kidney Disease Epidemiology Collaboration (CKD-EPI) equation refit??without adjustment for race. BUN/Creatinine Ratio 15.8 LAB CHEMISTRY METHOD 08/19/2024 3:13 PM [facility] Calcium 8.3(L) 8.5 - 10.5 mg/dL LAB CHEMISTRY METHOD 08/19/2024 3:13 PM [facility] AST (SGOT) 19 10 - 42 unit/L LAB CHEMISTRY METHOD 08/19/2024 3:13 PM [facility] ALT (SGPT) 12 10 - 60 unit/L LAB CHEMISTRY METHOD 08/19/2024 3:13 PM [facility] Alkaline Phosphatase 88 42 - 121 unit/L LAB CHEMISTRY METHOD 08/19/2024 3:13 PM [facility] Total Protein 5.5(L) 6.0 - 8.0 g/dL LAB CHEMISTRY METHOD 08/19/2024 3:13 PM [facility] Albumin 1.5(L) 3.2 - 5.0 g/dL LAB CHEMISTRY METHOD 08/19/2024 3:13 PM [facility] Total Bilirubin 0.3 0.0 - 1.4 mg/dL LAB CHEMISTRY METHOD 08/19/2024 3:13 PM [facility] Blood Venous blood specimen / Unknown Venipuncture / Unknown 08/19/2024 8:46 AM EST 08/19/2024 12:22 PM EST us Tabby Bledsoe MD LAB BLOOD ORDERABLES Fin al Result [facility] [address] [place] [address], * (ABNORMAL) Urinalysis with reflex microscopic and culture (08/03/2024 7:00 AM EST) Specific [place] Urine 1.014 1.003 - 1.030 LAB URINALYSIS - AUTOMATED METHOD 08/05/2024 1:39 PM [facility] pH, Urine 5.5 5.0 - 8.0 pH LAB URINALYSIS - AUTOMATED METHOD 08/05/2024 1:39 PM [facility] Leukocytes, Urine Large(A) Negative LAB URINALYSIS - AUTOMATED METHOD 08/05/2024 1:39 PM [facility] Nitrite, Urine Negative Negative LAB URINALYSIS - AUTOMATED METHOD 08/05/2024 1:39 PM [facility] Protein, Urine 30(A) <=Trace mg/dL LAB URINALYSIS - AUTOMATED METHOD 08/05/2024 1:39 PM [facility] Glucose, Urine Negative Negative mg/dL LAB URINALYSIS - AUTOMATED METHOD 08/05/2024 1:39 PM [facility] Ketones, Urine Negative Negative mg/dL LAB URINALYSIS - AUTOMATED METHOD 08/05/2024 1:39 PM [facility] Urobilinogen , Urine 0.2 0.2 - 1.0 mg/dL LAB URINALYSIS - AUTOMATED METHOD 08/05/2024 1:39 PM [facility] Bilirubin, Urine Negative Negative LAB URINALYSIS - AUTOMATED METHOD 08/05/2024 1:39 PM [facility] Blood, Urine Large(A) Negative LAB URINALYSIS - AUTOMATED METHOD 08/05/2024 1:39 PM [facility] RBC, Urine 271.0(H) 0 - 4 /HPF LAB URINALYSIS - AUTOMATED METHOD 08/05/2024 1:39 PM [facility] WBC, Urine 1,434.7(H) 0 - 4 /HPF LAB URINALYSIS - AUTOMATED METHOD 08/05/2024 1:39 PM [facility] Squamous Epithelial, Urine 41 0 - 60 /LPF LAB URINALYSIS - AUTOMATED METHOD 08/05/2024 1:39 PM [facility] Crystals, Urine MOD CALCIUM OXALATE /LPF LAB URINALYSIS - AUTOMATED METHOD 08/05/2024 1:39 PM [facility] Bacteria, Urine Many(A) Negative /HPF LAB URINALYSIS - AUTOMATED METHOD 08/05/2024 1:39 PM EST [facility] Hyaline Casts, Urine 8.1(H) 0 - 3 /LPF LAB URINALYSIS - AUTOMATED METHOD 08/05/2024 1:39 PM [facility] Urine Indwelling urinary catheter / Unknown Non-blood Collection / Unknown 08/03/2024 7:00 AM EST 08/05/2024 11:47 AM EST Tabby Bledsoe MD LAB URINE ORDERABLES Fin al Result Performing Organization Address [facility]/ZIP Co de Phone Number [facility] [address] [place] [address], [place] [phone] * Espinoza urine culture tube (08/03/2024 7:00 AM EST) Extra Tube Hold for add-ons. 08/05/2024 1:01 PM EST [facility] Comment:Auto resulted. Urine Indwelling urinary catheter / Unknown Non-blood Collection / Unknown 08/03/2024 7:00 AM EST 08/05/2024 11:47 AM EST Tabby Bledsoe MD LAB URINE ORDERABLES Fin al Result Performing Organization Address [facility] Co de Phone Number [facility] [address] [place] [address], [place] [phone] * (ABNORMAL) Culture urine (08/03/2024 7:00 AM EST) Only the most recent of2 resultswithin the time period is included. Culture, Urine >100,000 CFU/mL Escherichia coli(A) [place] 08/07/2024 9:46 AM EST [facility] Comment: This is an edited [...] FRANKLIN <=16 ug/ml: Susceptible Escherichia coli Trimethoprim/Sulfamethoxazole FARNKLIN >=320 ug/ml: Resistant us Tabby Bledsoe MD LAB MICROBIOLOGY - GENER AL ORDERABLES Final Result [facility] [address] [place] [address], * (ABNORMAL) Urinalysis with reflex microscopic (06/22/2024 12:00 AM EST) Specific [place] Urine 1.013 1.003 - 1.030 LAB URINALYSIS - AUTOMATED METHOD 06/23/2024 12:51 PM EST [facility] pH, Urine 6.0 5.0 - 8.0 pH LAB URINALYSIS - AUTOMATED METHOD 06/23/2024 12:51 PM [facility] Leukocytes, Urine Large(A) Negative LAB URINALYSIS - AUTOMATED METHOD 06/23/2024 12:51 PM [facility] Nitrite, Urine Negative Negative LAB URINALYSIS - AUTOMATED METHOD 06/23/2024 12:51 PM [facility] Protein, Urine 100(A) <=Trace mg/dL LAB URINALYSIS - AUTOMATED METHOD 06/23/2024 12:51 PM [facility] Glucose, Urine Negative Negative mg/dL LAB URINALYSIS - AUTOMATED METHOD 06/23/2024 12:51 PM [facility] Ketones, Urine Negative Negative mg/dL LAB URINALYSIS - AUTOMATED METHOD 06/23/2024 12:51 PM [facility] Urobilinogen , Urine 0.2 0.2 - 1.0 mg/dL LAB URINALYSIS - AUTOMATED METHOD 06/23/2024 12:51 PM [facility] Bilirubin, Urine Negative Negative LAB URINALYSIS - AUTOMATED METHOD 06/23/2024 12:51 PM [facility] Blood, Urine Large(A) Negative LAB URINALYSIS - AUTOMATED METHOD 06/23/2024 12:51 PM [facility] RBC, Urine 32.8(H) 0 - 4 /HPF LAB URINALYSIS - AUTOMATED METHOD 06/23/2024 12:51 PM [facility] WBC, Urine 3,850.2(H) 0 - 4 /HPF LAB URINALYSIS - AUTOMATED METHOD 06/23/2024 12:51 PM [facility] Squamous Epithelial, Urine 20 0 - 60 /LPF LAB URINALYSIS - AUTOMATED METHOD 06/23/2024 12:51 PM [facility] Bacteria, Urine Many(A) Negative /HPF LAB URINALYSIS - AUTOMATED METHOD 06/23/2024 12:51 PM [facility] Hyaline Casts, Urine 2.9 0 - 3 /LPF LAB URINALYSIS - AUTOMATED METHOD 06/23/2024 12:51 PM [facility] Urine Urine specimen obtained by clean catch procedure / Unknown Non-blood Collection / Unknown 06/22/2024 06/23/2024 11:44 AM EST us Pearl Garcia MD LAB URINE ORDERABLES Final Resul t [facility] [address] [place] [address], * (ABNORMAL) Basic metabolic panel (06/21/2024 6:57 AM EST) Only the most recent of2 resultswithin the time period is included. Sodium 147(H) 133 - 145 mmol/L LAB CHEMISTRY METHOD 06/21/2024 11:17 AM [facility] Potassium 4.3 3.5 - 5.5 mmol/L LAB CHEMISTRY METHOD 06/21/2024 11:17 AM [facility] Chloride 114(H) 96 - 110 mmol/L LAB CHEMISTRY METHOD 06/21/2024 11:17 AM [facility] CO2 23 21 - 32 mmol/L LAB CHEMISTRY METHOD 06/21/2024 11:17 AM [facility] Anion Gap 10 3 - 11 LAB CHEMISTRY METHOD 06/21/2024 11:17 AM [facility] Glucose 90 70 - 100 mg/dL LAB CHEMISTRY METHOD 06/21/2024 11:17 AM [facility] BUN 65(H) 5 - 25 mg/dL LAB CHEMISTRY METHOD 06/21/2024 11:17 AM [facility] Creatinine 3.53(H) 0.70 - 1.30 mg/dL LAB CHEMISTRY METHOD 06/21/2024 11:17 AM [facility] eGFR 16(L) >=60 mL/min/1. 73m2 LAB CHEMISTRY METHOD 06/21/2024 11:17 AM [facility] Comment:Calculation based on the??Chronic Kidney Disease Epidemiology Collaboration (CKD-EPI) equation refit??without adjustment for race. BUN/Creatinine Ratio 18.4 LAB CHEMISTRY METHOD 06/21/2024 11:17 AM [facility] Calcium 8.5 8.5 - 10.5 mg/dL LAB CHEMISTRY METHOD 06/21/2024 11:17 AM EST [facility] Blood Venous blood specimen / Unknown Venipuncture / Unknown 06/21/2024 6:57 AM EST 06/21/2024 9:08 AM EST Zak Zuluaga MD LAB BLOOD ORDERABLES Final Resul t Performing Organization Address City/[facility] Co de Phone Number [facility] [address] [place] [address], [place] [phone] * (ABNORMAL) Thyroid stimulating hormone with reflex to free t4 and free t3 (06/13/2024 7:00 AM EST) Only the most recent of2 resultswithin the time period is included. TSH 5.31(H) 0.40 - 4.00 mcIU/mL LAB CHEMISTRY METHOD 06/13/2024 10:28 AM EST [facility] Blood Venous blood specimen / Unknown Venipuncture / Unknown 06/13/2024 7:00 AM EST 06/13/2024 8:28 AM EST Natanael Rodney MD LAB BLOOD ORDERABLES Final Resu lt Performing Organization Address [facility] de Phone Number [facility] [address] [place] [address], * Free thyroxine with reflex to free triiodothyronine (06/13/2024 7:00 AM EST) Only the most recent of2 resultswithin the time period is included. Free T4 0.97 0.70 - 1.80 ng/dL LAB CHEMISTRY METHOD 06/13/2024 10:56 AM EST [facility] Blood Venous blood specimen / Unknown Venipuncture / Unknown 06/13/2024 7:00 AM EST 06/13/2024 8:28 AM EST us Natanael Rodney MD LAB BLOOD ORDERABLES Final Resu lt Performing Organization Address [facility]/ZIP Co de Phone Number [facility] [address] [place] [address], [place] [phone] * (ABNORMAL) Triiodothyronine free (06/13/2024 7:00 AM EST) Only the most recent of3 resultswithin the time period is included. T3, Free 163(L) 230 - 420 pcg/dL LAB CHEMISTRY METHOD 06/13/2024 11:42 AM EST [facility] Blood Venous blood specimen / Unknown Venipuncture / Unknown 06/13/2024 7:00 AM EST 06/13/2024 8:28 AM EST us Natanael Rodney MD LAB BLOOD ORDERABLES Final Resu lt Performing Organization Address [facility] de Phone Number [facility] [address] [place] [address], [place] [phone] * (ABNORMAL) Alanine aminotransferase (06/12/2024 9:20 AM EST) ALT (SGPT) 127(H) 10 - 60 unit/L LAB CHEMISTRY METHOD 06/12/2024 12:03 PM EST [facility] Blood Venous blood specimen / Unknown Venipuncture / Unknown 06/12/2024 9:20 AM EST 06/12/2024 11:19 AM EST us Pearl Garcia MD LAB BLOOD ORDERABLES Final Resul t Performing Organization Address [facility]/ZIP Co de Phone Number [facility] [address] [place] [address], * (ABNORMAL) Aspartate aminotransferase (06/12/2024 9:20 AM EST) AST (SGOT) 185(H) 10 - 42 unit/L LAB CHEMISTRY METHOD 06/12/2024 12:04 PM EST [facility] Blood Venous blood specimen / Unknown Venipuncture / Unknown 06/12/2024 9:20 AM EST 06/12/2024 11:19 AM EST us Pearl Garcia MD LAB BLOOD ORDERABLES Final Resul t Performing Organization Address [facility] Co de Phone Number [facility] [address] [place] [address], [place] [phone] * (ABNORMAL) Thyroid stimulating hormone (06/12/2024 9:20 AM EST) TSH 4.91(H) 0.40 - 4.00 mcIU/mL LAB CHEMISTRY METHOD 06/12/2024 12:15 PM EST [facility] Blood Venous blood specimen / Unknown Venipuncture / Unknown 06/12/2024 9:20 AM EST 06/12/2024 11:19 AM EST us Pearl Garcia MD LAB BLOOD ORDERABLES Final Resul t Performing Organization Address [facility] de Phone Number [facility] [address] [place] [address], [place] [phone] * Thyroxine free (06/12/2024 9:20 AM EST) Free T4 1.02 0.70 - 1.80 ng/dL LAB CHEMISTRY METHOD 06/12/2024 12:15 PM EST [facility] Blood Venous blood specimen / Unknown Venipuncture / Unknown 06/12/2024 9:20 AM EST 06/12/2024 11:19 AM EST us Pearl Garcia MD LAB BLOOD ORDERABLES Final Resul t Performing Organization Address City/[facility]/ZIP Co de Phone Number [facility] [address] [place] [address], [place] [phone] from Last 3 Months Additional Health Concerns Infection Onset Date 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 Manager Marketing Relationship Specialty Start Date End Date Uday Sheehan MD [address] [place] [address] Dr Donna [place] PCP - General Oven Heater Helper 12/19/16
--- OUTSIDE RECORDS SUMMARY | 2024-08-20 13:16 | XMS_ITS | Encounter Summary ---
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 [id number] Social History Tobacco Use Types Packs/Day Years [...] on filedocumented in this encounter Care Teams Ice Cream Truck Driver Relationship Specialty Start Date End Date Uday Sheehan MD [address] [place] PCP - General 05/14/19 documented as of this encounter
--- OUTSIDE RECORDS SUMMARY | 2024-08-20 13:16 | XMS_ITS | Clinical Summary ---
Author Organization [facility] Address [address] [place] [address] Care Team Providers Care Inspecting Supervisor Name Role Phone Uday Sheehan Primary Care Provider [phone] Allergies No known active allergies Medications acetaminophen (TYLENOL) 325 mg tablet 650 mg by gastric tube route every 6 hours as needed for pain. Active albuterol 2.5 mg/3 mL (0.083%) nebulizer solution Inhale 1 vial via nebulizer every 4 hours as needed for wheezing or shortness of breath. Active amLODIPine (NORVASC) 10 mg tablet 10 mg by gastric tube route once a day. Active atorvastatin (LIPITOR) 80 mg tablet 80 mg by gastric tube route once a day. Active ferrous sulfate 325 mg (65 mg iron) EC tablet Take 65 mg by mouth 3 times a day with meals. Active levothyroxine (SYNTHROID, LEVOTHROID) 100 mcg tablet 100 mcg by gastric tube route daily. Active OLANZapine (ZyPREXA Zydis) 5 mg disintegrating tablet 5 mg by gastric tube route every 6 hours as needed (agitation). Active amiodarone (PACERONE) 200 mg tablet Take 200 mg by mouth once a day. Active lactobacillus acidophilus-L. bulgaricus (Floranex) 1 million cell tablet Take 1 tablet by mouth 2 times a day. Active ondansetron (ZOFRAN) 4 mg/2 mL injection Infuse 4 mg intravenously every 6 hours as needed for nausea or vomiting. Active polyethylene glycol 3350 (MIRALAX) 17 gram packet Take 17 g by mouth daily as needed for constipation. Mix powder in 4 to 8 oz of water, juice, coffee, or tea prior to administration. Active polyvinyl alcohol-povidone (Artificial Tears,pvalch-povid ,) 0.5-0.6 % drops Instill 1 drop into affected eye(s) every 6 hours as needed (dry eyes). Active amino acids-protein hydrolysate (PROSOURCE TF20) 20 gram-80 kcal/60 mL liquid in packet liquid 60 mL by gastric tube route 2 times a day. 04/08/20 Active apixaban (ELIQUIS) 5 mg tablet Take 1 tablet (5 mg total) by mouth every 12 hours. 04/08/20 Active wjjlh-eegt-IoUID-c dqcnf-li-ygb (VIDHYA WITH COLLAGEN) 7-7-1.5 gram powder in packet 1 packet by gastric tube route 2 times a day. 04/08/20 Active ascorbic acid (VITAMIN C) 500 mg tablet Take 1 tablet (500 mg total) by mouth 2 times a day. 04/08/20 Active ipratropium-albute roL (DUO-NEB) 0.5-2.5 mg/3 mL nebulizer solution Inhale 3 mL via nebulizer every 6 hours as needed for wheezing. 04/08/20 Active melatonin 3 mg tablet 3 tablets (9 mg total) by gastric tube route nightly. 04/08/20 Active multivitamin tablet 1 tablet by gastric tube route once a day. 04/09/20 Active QUEtiapine (SEROquel) 25 mg tablet 1 tablet (25 mg total) by gastric tube route nightly. 04/08/20 Active sennosides (SENNA) 8.8 mg/5 mL syrup syrup Take 10 mL (17.6 mg total) by gastric tube nightly as needed (constipation). 04/08/20 Active sodium chloride 3% nebulizer solution Inhale 4 mL via nebulizer every 8 hours. 04/08/20 24 025 Active Active Problems Problem Noted Date Diagnosed Date Hypernatremia 03/31/2024 Assessment & Plan (04/02/2024 5:05 PM EDT): Patient noted to have mild hypernatremia of 146 on 03/30. -Continue to monitor with daily BMP -Free water flushes 250ml q6h Assessment & Plan (04/01/2024 4:50 PM EDT): Patient noted to have mild hypernatremia of 146 on 03/30. -Continue to monitor with daily BMP -Free water flushes 200ml q6h Assessment & Plan (03/31/2024 3:28 PM EDT): Patient noted to have mild hypernatremia of 146 on 03/30. - Continue to monitor with daily BMP - Free water flushes 200ml q6h (D1: 03/31/24) Paroxysmal A-fib (CMS/HCC) 03/28/2024 Assessment & Plan (04/02/2024 5:05 PM EDT): Per medical records patient has a history of paroxysmal A-fib. Home medications include Eliquis and amiodarone. Eliquis was recently being held in the setting of traumatic bleed around trach tube occurring 3 to 5 days prior to admission. No current signs of active bleeding. Hemoglobin appears stable at 8.9. -Continue Amiodarone -Continue home Eliquis Assessment & Plan (04/01/2024 3:44 PM EDT): Per medical records patient has a history of paroxysmal A-fib. Home medications include Eliquis and amiodarone. Eliquis was recently being held in the setting of traumatic bleed around trach tube occurring 3 to 5 days prior to admission. No current signs of active bleeding. Hemoglobin appears stable at 8.9. -Continue Amiodarone -Continue home Eliquis Assessment & Plan (03/31/2024 3:28 PM EDT): Per medical records patient has a history of paroxysmal A-fib. Home medications include Eliquis and amiodarone. Eliquis was recently being held in the setting of traumatic bleed around trach tube occurring 3 to 5 days prior to admission. No current signs of active bleeding. Hemoglobin appears stable at 8.9. -Continue Amiodarone -Resume Eliquis, when appropriate Coronary artery disease 03/28/2024 Assessment & Plan (04/02/2024 5:05 PM EDT): Patient has hx of CAD -Continue Amlodipine 10mg daily Assessment & Plan (04/01/2024 3:44 PM EDT): Patient has hx of CAD -Amlodipine 10mg daily Assessment & Plan (03/31/2024 3:28 PM EDT): Patient has hx of CAD - amlodipine 10mg daily Systolic CHF (CMS/HCC) 03/28/2024 Assessment & Plan (04/02/2024 5:05 PM EDT): Patient history significant for systolic CHF. Last available transthoracic echo from March 2022 significant for left ventricular ejection fraction of 60 to 65%. Patient had pulmonary edema present on CT. Attempts were made to diurese with Lasix 40 mg, with minimal reported response. Pro-BNP 03/31/24 elevated to ~1900. -S/p Lasix 40mg on 02/24, 02/25, 04/01 -Repeat Transthoracic Echo when appropriate Assessment & Plan (04/01/2024 3:44 PM EDT): Patient history significant for systolic CHF. Last available transthoracic echo from March 2022 significant for left ventricular ejection fraction of 60 to 65%. Patient had pulmonary edema present on CT. Attempts were made to diurese with Lasix 40 mg, with minimal reported response. Pro-BNP 03/31/24 elevated to ~1900. -S/p Lasix 40mg on 02/24 and 02/25 -Lasix 40mg x1 dose (04/01/24) -Repeat Transthoracic Echo when appropriate Assessment & Plan (03/31/2024 3:28 PM EDT): Patient history significant for systolic CHF. Last available transthoracic echo from March 2022 significant for left ventricular ejection fraction of 60 to 65%. Patient had pulmonary edema present on CT. Attempts were made to diurese with Lasix 40 mg, with minimal reported response. Pro-BNP 03/31/24 elevated to ~1900. -S/p Lasix 40mg on 02/24 and 02/25 -Repeat Transthoracic Echo when appropriate CKD (chronic kidney disease) 03/28/2024 Assessment & Plan (04/02/2024 5:05 PM EDT): Patient has hx of CKD. During this admission, Cr has been stable at ~0.9. -Daily BMP, Mg, Phos Assessment & Plan (04/01/2024 3:44 PM EDT): Patient has hx of CKD. During this admission, Cr has been stable at ~0.9. -Daily BMP, Mg, Phos Assessment & Plan (03/31/2024 3:28 PM EDT): Patient has hx of CKD. During this admission, Cr has been stable at ~0.9. - Daily BMP, Mg, Phos Agitation 03/28/2024 Assessment & Plan (04/02/2024 5:05 PM EDT): Patient was noted to be agitated early on during admission. Was previously in mitts due to pulling at trach. -Hold zyprexa for prolonged qtc -Continue Trazodone PRN for agitation -Patient currently with a 1:1 Assessment & Plan (04/01/2024 3:44 PM EDT): Patient was noted to be agitated early on during admission. Was previously in mitts due to pulling at trach. -Hold zyprexa for prolonged qtc -Continue Trazodone PRN for agitation -Patient currently with a 1:1 Assessment & Plan (03/31/2024 3:28 PM EDT): Patient was noted to be agitated early on during admission. Was previously in mitts due to pulling at trach. - Hold zyprexa for prolonged qtc - Consider Trazadone for agitation - Patient currently with a 1:1 MRSA (methicillin resistant Staphylococcus aureu s) 03/28/2024 Assessment & Plan (04/02/2024 5:05 PM EDT): Patient with positive MRSA sputum culture. Colonization status unknown. CT positive for consolidation in the right upper lobe. Patient has remained afebrile during hospitalization. WBC of 7.4. As per AHRF section Assessment & Plan (04/01/2024 3:44 PM EDT): Patient with positive MRSA sputum culture. Colonization status unknown. CT positive for consolidation in the right upper lobe. Patient has remained afebrile during hospitalization. WBC of 7.4. As per AHRF section Assessment & Plan (03/31/2024 3:28 PM EDT): Patient is positive for MRSA sputum culture. Colonization status unknown. CT positive for consolidation in the right upper lobe. Patient has remained afebrile during hospitalization. WBC of 7.4. - Plan as per [facility] section PEG (percutaneous endoscopic gastrostomy) status 03/28/2024 Assessment & Plan (04/02/2024 5:05 PM EDT): Patient has PEG tube in place. -Tube Feeds as per RD Assessment & Plan (04/01/2024 3:44 PM EDT): Patient has PEG tube in place. -Tube Feeds as per RD Assessment & Plan (03/31/2024 3:28 PM EDT): Patient has PEG tube in place. - Tube Feeds as per RD Abnormal EKG 03/28/2024 Assessment & Plan (04/02/2024 5:05 PM EDT): EKG done on presentation was significant for prolonged QTc of 515. Patient was receiving several QTc prolonging medications including Zyprexa for agitation and Ondansetron for nausea and vomiting. -Avoid QTC prolonging medications Assessment & Plan (04/01/2024 3:44 PM EDT): EKG done on presentation was significant for prolonged QTc of 515. Patient was receiving several QTc prolonging medications including Zyprexa for agitation and Ondansetron for nausea and vomiting. -Avoid QTC prolonging medications Assessment & Plan (03/31/2024 3:28 PM EDT): EKG done on presentation was significant for prolonged QTc of 515. Patient currently receives several QTc prolonging medications including Zyprexa for agitation and ondansetron for nausea and vomiting. 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 As per AHRF section Assessment & Plan (04/01/2024 3:44 PM EDT): Patient has trach in place. As per AHRF section Assessment & Plan (03/31/2024 3:28 PM EDT): Patient has trach in place. - Plan as per AHRF section Other specified hypothyroidism 03/28/2024 Assessment & Plan (04/02/2024 5:05 PM EDT): Patient has a history of hypothyroidism. TSH 7.53 with reflex T4 1.06 on 03/29/24. -Levothyroxine 100mcg daily Assessment & Plan (04/01/2024 3:44 PM EDT): Patient has a history of hypothyroidism. TSH 7.53 with reflex T4 1.06 on 03/29/24. -Levothyroxine 100mcg daily Assessment & Plan (03/31/2024 3:28 PM EDT): Patient has a history of hypothyroidism. TSH 7.53 with reflex T4 1.06 on 03/29/24. - levothyroxine 100mcg daily Bilateral lower extremity edema 03/28/2024 Assessment & Plan (04/02/2024 5:05 PM EDT): Diuresis as per AHRF section. Assessment & Plan (04/01/2024 3:44 PM EDT): Diuresis as per AHRF section. Assessment & Plan (03/31/2024 3:28 PM EDT): Diuresis as per AHRF section. Iron deficiency anemia 03/28/2024 Assessment & Plan (04/02/2024 5:05 PM EDT): Patient has a history of JOSSELIN. Hgb stable this admission ~8.5 since transfer to floor. -Daily CBC -Consider iron panel workup Assessment & Plan (04/01/2024 3:44 PM EDT): Patient has a history of JOSSELIN. Hgb stable this admission ~8.5 since transfer to floor. -Daily CBC -Consider iron panel workup Assessment & Plan (03/31/2024 3:28 PM EDT): Patient has a history of JOSSELIN. Hgb stable this admission ~8.5 since transfer to floor. - Daily CBC - Consider iron panel workup Gastroesophageal reflux disease without esophagi tis 03/28/2024 Assessment & Plan (04/02/2024 5:05 PM EDT): Patient has a history of GERD. -Esomeprazole (nexium) granules 20mg daily through G tube Assessment & Plan (04/01/2024 3:44 PM EDT): Patient has a history of GERD. -Esomeprazole (nexium) granules 20mg daily through G tube Assessment & Plan (03/31/2024 3:28 PM EDT): Patient has a history of GERD. - esomeprazole (nexium) granules 20mg daily through G tube Resolved Problems Problem Noted Date Diagnosed Date Resolved Date Acute on chronic respiratory failure with hypoxemia 03/28/2024 04/08/2024 Assessment & Plan (04/02/2024 5:05 PM EDT): 84-year-old male past medical history A-fib on Eliquis and amiodarone hypertension hyperlipidemia hypothyroidism CKD and recent admission for aspiration pneumonia requiring intubation. S/p trach for failed extubations. Tolerated trach collar during the day, unknown if patient tolerates trach collar at night or requires ventilation. Healthcare proxy believes patient is requiring ventilation overnight at new baseline. Patient presented with 1 day history of increasing difficulty breathing. CT PE negative for pulmonary embolism but found right upper lobe consolidation pleural effusion and pulmonary edema. Patient was ventilated overnight oxygen requirements weaned to 30% trach mask today satting appropriately over 92%. Patient has otherwise been hemodynamically stable. Physical exam on transfer significant for sputum from trach, decreased breath sounds, +1 pitting edema lower extremities bilaterally. S/p 40mg Lasix 03/27, 03/28, and 04/01, minimal response reported. CXR done on 03/31/24 due to increased work of breathing, which showed persistent extensive pulmonary edema / ARDS opacities with focal dense consolidation in the LLL. O2 increased to 50%. MRSA sputum+ on 03/28/2024, COVID/flu/rsv negative, legionella and strep negative. [ ] Resp. Cx 03/29 with staph aureus, few gram positive cocci, rare gram positive bacilli, rare yeast (preliminary) [ ] BCX 03/28 - NGTD -Continue Vancomycin given MRSA+ -Continue Zosyn given resp culture with rare gram positive bacilli -Duo nebs AIDAN and PRN -Pulmonology consulted, appreciate recommendations -Hypertonic saline nebs TID -Suctioning q4h -RUL/RML manual chest PT -Continue Guaifenesin 400mg q6h Assessment & Plan (04/01/2024 4:51 PM EDT): 84-year-old male past medical history A-fib on Eliquis and amiodarone hypertension hyperlipidemia hypothyroidism CKD and recent admission for aspiration pneumonia requiring intubation. S/p trach for failed extubations. Tolerated trach collar during the day, unknown if patient tolerates trach collar at night or requires ventilation. Healthcare proxy believes patient is requiring ventilation overnight at new baseline. Patient presented with 1 day history of increasing difficulty breathing. CT PE negative for pulmonary embolism but found right upper lobe consolidation pleural effusion and pulmonary edema. Patient was ventilated overnight oxygen requirements weaned to 30% trach mask today satting appropriately over 92%. Patient has otherwise been hemodynamically stable. Physical exam on transfer significant for sputum from trach, decreased breath sounds, +1 pitting edema lower extremities bilaterally. S/p 40mg Lasix 03/27 and 03/28, minimal response reported. S/P zosyn. -MRSA sputum+, COVID/flu/rsv negative, legionella and strep negative. [ ] Resp. Cx 03/29 with staph aureus, few gram positive cocci, rare gram positive bacilli, rare yeast (preliminary) [ ] BCX 03/28 - NGTD -CXR 03/31/24 d/t increased work of breathing: persistent extensive pulmonary edema / ARDS opacities with focal dense consolidation LLL. O2 increased to 50% per FRUIT PICKER MACHINE OPERATOR: plugging secretions but not clogged at that time. -Continue Vancomycin, Zosyn -Duo nebs AIDAN and PRN with hypertonic saline nebs -Guaifenesin 400mg q6h Assessment & Plan (03/31/2024 3:28 PM EDT): 84-year-old male past medical history A-fib on Eliquis and amiodarone hypertension hyperlipidemia hypothyroidism CKD and recent admission for aspiration pneumonia requiring intubation. S/p trach for failed extubations. Tolerated trach collar during the day, unknown if patient tolerates trach collar at night or requires ventilation. Healthcare proxy believes patient is requiring ventilation overnight at new baseline. Patient presented with 1 day history of increasing difficulty breathing. CT PE negative for pulmonary embolism but found right upper lobe consolidation pleural effusion and pulmonary edema. Patient was ventilated overnight oxygen requirements weaned to 30% trach mask today satting appropriately over 92%. Patient has otherwise been hemodynamically stable. Physical exam on transfer significant for sputum from trach, decreased breath sounds, +1 pitting edema lower extremities bilaterally. S/p 40mg Lasix 03/27 and 03/28, minimal response reported. S/P zosyn. Workup: MRSA sputum +; COVID/flu/rsv negative, legionella and strep negative. - resp. Cx 03/29 with few gram positive cocci and rare gram positive bacilli as well as rare yeast - BCX 03/29 - NGTD - CXR 03/31/24 d/t increased work of breathing: persistent extensive pulmonary edema / ARDS opacities with focal dense consolidation LLL. O2 increased to 50% per FRUIT PICKER MACHINE OPERATOR: plugging secretions but not clogged at that time. - ID consulted; appreciate recs - Cont. Vanc (D1: 03/29 - ?5-7days) - duo nebs AIDAN and PRN with hypertonic saline nebs - Guaifenesin 400mg q6h (increased 03/31/24) Pneumonia of right upper lob e due to methicillin resistant Staphylococcus aureus (MRSA) 03/28/2024 04/08/2024 Assessment & Plan (04/02/2024 5:05 PM EDT): As per AHRF section Assessment & Plan (04/01/2024 3:44 PM EDT): As per AHRF section Assessment & Plan (03/31/2024 3:28 PM EDT): As per AHRF section. Encounters Date Type Department Care Team Description 05/28/2024 Lab Requisition [facility] Lab Department [address] [place] [address] Lidia Barry NP Acute and chronic respiratory failure with hypoxia (HCC); No diagnosis 05/28/2024 Lab Requisition [facility] Lab [address] [place] [address] Valarie Pierson MD Acute and chronic respiratory failure with hypoxia (HCC); No diagnosis 05/27/2024 Lab Requisition [facility] [address] [place] [address] Salo Whyte MD Acute and chronic respiratory failure with hypoxia (HCC); No diagnosis 05/23/2024 Lab Requisition [facility] Lab [address] [place] [address] Lidia Barry NP Acute and chronic respiratory failure with hypoxia (HCC); No diagnosis 05/21/2024 Orders Only [facility] Interventional Radiology [address] [place] [address] Cedric Blank MD 05/20/2024 Lab Requisition [facility] Lab [address] [place] [address] Salo Whyte MD Acute and chronic respiratory failure with hypoxia (HCC); No diagnosis from Last 3 Months Immunizations Name Administration Dates Next Due Influenza, Trivalent, Adjuvanted, PF 04/08/2024 Social History Tobacco Use Types Packs/Day Years Used Date Smoking Tobacco: Former Cigarettes Tobacco Cessation:Counseling Given: Not Answered Alcohol Use Standard Drinks/Week Comments Defer 0 (1 standard drink = 0.6 oz pur e alcohol) Sex and Gender Information Value Date Recorded Sex Assigned at Male 03/08/2024 3:18 PM EDT Legal Sex Male 11:27 AM EDT Gender Identity Male 03/29/2024 1:49 AM EDT Sexual Orientation Don't know 03/29/2024 1: 49 AM EDT Last Filed Vital Signs Vital Sign Reading Time Taken Comments Blood Pressure 144/76 04/08/2024 2:00 PM EDT Pulse 64 04/08/2024 2:00 PM EDT Temperature 36.6 ??C (97.9 ??F) 04/08/2024 2:00 PM ED T Respiratory Rate 28 04/08/2024 2:00 PM EDT Oxygen Saturation 99% 04/08/2024 2:00 PM EDT Inhaled Oxygen Concentration - - Weight 117.4 kg (258 lb 13.1 oz) 04/08/2024 5:46 AM EDT Height 180 cm (5' 10.87 ) 04/07/2024 8:23 AM EDT Body Mass Index 36.23 04/07/2024 8:23 AM EDT Plan of Treatment Health Maintenance Due Date Last Done Comments 25 Hydroxy / Vitamin D 1940 PTH 1940 Pneumococcal Vaccine: 65+ Years (1 of 2 - PCV) 02/15/1946 Urine Microalbumin 02/15/1950 DTaP,Tdap,and Td Vaccines (1 - Tdap) 02/15/1962 Zoster Vaccines (1 of 2) 02/15/1990 RSV Vaccine (60+ years old and patients) (1 - 1-dose 75+ series) 02/15/2015 COVID-19 Vaccine (1 - 2023- season) 2024 Alcohol/Substance Use Screening 07/10/2024 Depression Screening and Follow-Up 07/10/2024 Health Care Proxy Review 07/10/2024 Social Drivers of Health Annual Screening 07/10/2024 Basic Metabolic Panel 11/24/2024 05/27/2024 , 05/23/2024, 05/20/2024, Additional history exists Phosphorus 04/08/2025 04/08/2024, 03/11, 04/06/2024, Additional history exists Hemoglobin 05/27/2025 05/27/2024, 05/10, 05/20/2024, Additional history exists Influenza Vaccine Completed 04/08/2024 Hepatitis B Vaccines Aged Out No long er eligible based on patient's age to complete this topic Procedures * Due to [place] state law, this organization might not be sharing negative HIV tests. Procedure Name Priority Date/Time Associated Diagnosis Comments TROPONIN T HIGH SENSITIVITY Routine 05/28/2024 8:45 PM EST Acute and chronic respiratory failure with hypoxia (HCC) No diagnosis TROPONIN T HIGH SENSITIVITY Routine 05/28/2024 2:28 PM EST Acute and chronic respiratory failure with hypoxia (HCC) No diagnosis CBC AUTO DIFFERENTIAL Routine 05/27/2024 10:09 AM EST Acute and chronic respiratory failure with hypoxia (HCC) No diagnosis COMPREHENSIVE METABOLIC PANEL Routine 05/27/2024 10:09 AM EST Acute and chronic respiratory failure with hypoxia (HCC) No diagnosis SEDIMENTATION RATE, AUTOMATED Routine 05/23/2024 9:28 AM EST Acute and chronic respiratory failure with hypoxia (HCC) No diagnosis CBC AUTO DIFFERENTIAL Routine 05/23/2024 9:28 AM EST Acute and chronic respiratory failure with hypoxia (HCC) No diagnosis C-REACTIVE PROTEIN Routine 05/23/2024 9: 28 AM EST Acute and chronic respiratory failure with hypoxia (HCC) No diagnosis COMPREHENSIVE METABOLIC PANEL Routine 05/23/2024 9:28 AM EST Acute and chronic respiratory failure with hypoxia (HCC) No diagnosis CBC AUTO DIFFERENTIAL Routine 05/20/2024 10:25 AM EST Acute and chronic respiratory failure with hypoxia (HCC) No diagnosis COMPREHENSIVE METABOLIC PANEL Routine 05/20/2024 10:25 AM EST Acute and chronic respiratory failure with hypoxia (HCC) No diagnosis PHOSPHORUS Routine 04/08/2024 5:21 AM EDT from Last 3 Months or Most Recently Relevant to Health Maintenance Results * Due to [place] state law, this organization might not be sharing negative HIV tests. * (ABNORMAL) Troponin T, High Sensitivity (05/28/2024 8:45 PM EST) Only the most recent of2 resultswithin the time period is included. Troponin T High Sensitivity 35(H) 6 - 22 ng/L 05/28/2024 9:42 PM EST [facility] Comment: Eu-Hemmislk-K level of 52 ng/L or higher at [...] be evaluated in line with the 4th [place] Definition of AMI. Troponin baseline and serial [...] Structure of peripheral vein / Unknown 05/28/2024 8:45 PM EST 05/28/2024 9:26 PM EST us Lidia Barry CIGARETTE PAPER TESTER LAB BLOOD ORDERABLES Final R esult [facility] [address] [place] [address], * (ABNORMAL) CBC Auto Differential (05/27/2024 10:09 AM EST) Only the most recent of3 resultswithin the time period is included. WBC 6.1 4.8 - 10.8 10*3/uL 05/27/2024 10:58 AM [facility] RBC 3.05(L) 4.70 - 6.10 10*6/uL 05/27/2024 10:58 AM [facility] Hemoglobin 8.4(L) 13.7 - 16.5 g/dL 05/27/2024 10:58 AM [facility] Hematocrit 26.6(L) 40.5 - 48.5 % 05/27/2024 10:58 AM [facility] MCV 87.2 80.0 - 94.0 fL 05/27/2024 10:58 AM [facility] MCH 27.5 26.0 - 34.0 pg 05/27/2024 10:58 AM [facility] MCHC 31.6 31.0 - 36.0 g/dL 05/27/2024 10:58 AM [facility] RDW 17.0(H) 12.0 - 15.0 % 05/27/2024 10:58 AM [facility] RDW Standard Deviation 54.3(H) 35.1 - 43.9 fL 05/27/2024 10:58 AM [facility] Platelets 147 140 - 440 10*3/uL 05/27/2024 10:58 AM [facility] MPV 10.1 9.4 - 12.4 fL 05/27/2024 10:58 AM [facility] Neutrophil % 57.4 50.0 - 75.0 % 05/27/2024 10:58 AM [facility] Immature Grans % 0.3 0.0 - 0.9 % 05/27/2024 10:58 AM [facility] Lymphocyte % 23.7 20.0 - 44.0 % 05/27/2024 10:58 AM [facility] Monocyte % 12.7 0.0 - 14.0 % 05/27/2024 10:58 AM [facility] Eosinophil % 5.6(H) 0.0 - 5.0 % 05/27/2024 10:58 AM [facility] Basophil % 0.3 0.0 - 2.0 % 05/27/2024 10:58 AM [facility] Neutrophil # 3.51 1.80 - 7.70 10*3/uL 05/27/2024 10:58 AM [facility] Immature Grans # <0.03 0.00 - 0.03 10*3/uL 05/27/2024 10:58 AM [facility] Lymphocyte # 1.50 1.00 - 4.75 10*3/uL 05/27/2024 10:58 AM [facility] Monocyte # 0.80 0.00 - 6.00 10*3/uL 05/27/2024 10:58 AM [facility] Eosinophil # 0.30 0.00 - 0.80 10*3/uL 05/27/2024 10:58 AM [facility] Basophil # <0.03 0.00 - 0.20 10*3/uL 05/27/2024 10:58 AM [facility] nRBC % 0.0 0 - 0 /100 WBCs 05/27/2024 10:58 AM [facility] nRBC # <0.01 0.00 - 0.13 10*3/uL 05/27/2024 10:58 AM [facility] Blood Structure of peripheral vein / Unknown Venipuncture / Unknown 05/27/2024 10:09 AM EST 05/27/2024 10:10 AM EST Salo Whyte MD LAB BLOOD ORDERABLES Final Result [facility] [address] [place] [address], [place] [phone] * (ABNORMAL) Comprehensive Metabolic Panel (05/27/2024 10:09 AM EST) Only the most recent of3 resultswithin the time period is included. NA 142 136 - 145 mmol/L 05/27/2024 11:11 AM EST [facility] K 3.9 3.5 - 5.1 mmol/L 05/27/2024 11:11 AM EST [facility] Cl 104 98 - 109 mmol/L 05/27/2024 11:11 AM EST [facility] CO2 30 22 - 32 mmol/L 05/27/2024 11:11 AM EST [facility] Anion Gap 12 >=0 05/27/2024 11:11 AM EST [facility] Glucose 99 60 - 99 mg/dL 05/27/2024 11:11 AM EST [facility] Creatinine 1.71(H) 0.50 - 1.12 mg/dL 05/27/2024 11:11 AM EST [facility] Calcium 9.4 8.4 - 10.4 mg/dL 05/27/2024 11:11 AM EST [facility] Total Protein 6.0(L) 6.6 - 8.7 g/dL 05/27/2024 11:11 AM EST [facility] Albumin 2.9(L) 3.5 - 5.0 g/dL 05/27/2024 11:11 AM EST [facility] Bilirubin, Total 0.3 0.2 - 1.2 mg/dL 05/27/2024 11:11 AM EST [facility] Alkaline Phosphatase 113 40 - 129 U/L 05/27/2024 11:11 AM EST [facility] AST 18 0 - 40 U/L 05/27/2024 11:11 AM EST [facility] ALT 12 <=41 U/L 05/27/2024 11:11 AM EST [facility] BUN 41(H) 8 - 23 mg/dL 05/27/2024 11:11 AM EST [facility] eGFR 39(L) >=60 mL/min/1. 73m2 05/27/2024 11:11 AM EST [facility] Comment:The estimated glomer ular filtration [...] - 4.2 g/dL 05/27/2024 11:11 AM EST [facility] A/G Ratio 0.9(L) 1.5 - 3.0 05/27/2024 11:11 AM EST [facility] Blood Structure of peripheral vein / Unknown Venipuncture / Unknown 05/27/2024 10:09 AM EST 05/27/2024 10:10 AM EST us Salo Whyte MD LAB BLOOD ORDERABLES Final Result [facility] [address] [place] [address] [address] [place] [address], * (ABNORMAL) Sedimentation Rate (05/23/2024 9:28 AM EST) Sed Rate 77(H) 0 - 19 mm/Hr 05/23/2024 10:52 AM EST [facility] Blood Structure of peripheral vein / Unknown Venipuncture / Unknown 05/23/2024 9:28 AM EST 05/23/2024 10:40 AM EST Lidia Jhonny [employer] LAB BLOOD ORDERABLES Final R esult [facility] [address] [address], [place] [phone] * (ABNORMAL) C-Reactive Protein (05/23/2024 9:28 AM EST) C Reactive Protein 12.4(H) <=10.0 mg/L 05/23/2024 11:08 AM EST [facility] Blood Structure of peripheral vein / Unknown Venipuncture / Unknown 05/23/2024 9:28 AM EST 05/23/2024 10:40 AM EST us Lidia Barry [employer] LAB BLOOD ORDERABLES Final R esult Performing Organization Address City/[facility]/ZIP Co de Phone Number [facility] [address] [address], [place] [phone] * Phosphorus (04/08/2024 5:21 AM EDT) Phosphorus 4.2 2.5 - 4.5 mg/dL 04/08/2024 5:46 AM EDT [facility] Blood Structure of peripheral vein / Unknown Venipuncture / Unknown 04/08/2024 5:21 AM EDT 04/08/2024 5:24 AM EDT us Jori Longo [employer] LAB BLOOD ORDERABLES Fi nal Result [facility] [address] [place] [address], [place] from Last 3 Months or Most Recently Relevant to Health Maintenance Additional Health Concerns Infection Onset Date Last 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 MEDICARE Advance Directives Documents on File Type Date Recorded Patient Auto Inspector Expl anation Health Care Proxy 03/31/2024 10:53 AM 07-10 Health Care Proxy 03/29/2024 4:42 PM 07-28 * Full Code (Latest Code Status on File) Date Activated Date Inactivated Comments 03/28/2024 11:06 PM 04/08/2024 5:01 PM * Presumed Full Code Date Activated Date Inactivated Comments 03/28/2024 2:54 PM 03/28/2024 11:06 PM Healthcare Agents on File Name Relationship Healthcare Agent Relationshi p Communication Linda Atkinson Daughter Next of Kin Care Teams Inspecting Supervisor Relationship Specialty Start Date End Date Uday Sheehan [address] [place] [address] [place] [address] PCP - General Internal Medicine 03/27/24
--- OUTSIDE RECORDS SUMMARY | 2024-08-20 13:16 | XMS_ITS | Encounter Summary ---
Author Organization [facility] Address [address] [place] [address] Care Team Providers Care Riveting Machine Operator Tape Control Name Role Phone Uday Sheehan MD Primary Care Provider [phone] Encounter Details Date Type Department Care Team (Late st Contact Info) Description 08/18/2024 Lab Requisition [facility] Main Lab [address] [facility] [place] [address] Tabby Bledsoe MD [address] [address] Bacteremia Social History Tobacco Use Types Packs/Day [...] Associated Diagnosis Comments COMPLETE BLOOD COUNT Routine 08/19/2024 8:46 AM EST Bacteremia COMPREHENSIVE METABOLIC PANEL Routine 08/19/2024 8:46 AM EST Bacteremia documented in this encounter Results * (ABNORMAL) Comprehensive metabolic panel (08/19/2024 8:46 AM EST) Sodium 145 133 - 145 mmol/L LAB CHEMISTRY METHOD 08/19/2024 3:13 PM EST [facility] Potassium 4.0 3.5 - 5.5 mmol/L LAB CHEMISTRY METHOD 08/19/2024 3:13 PM EST [facility] Chloride 111(H) 96 - 110 mmol/L LAB CHEMISTRY METHOD 08/19/2024 3:13 PM [facility] CO2 25 21 - 32 mmol/L LAB CHEMISTRY METHOD 08/19/2024 3:13 PM [facility] Anion Gap 9 3 - 11 LAB CHEMISTRY METHOD 08/19/2024 3:13 PM [facility] Glucose 90 70 - 100 mg/dL LAB CHEMISTRY METHOD 08/19/2024 3:13 PM [facility] BUN 23 5 - 25 mg/dL LAB CHEMISTRY METHOD 08/19/2024 3:13 PM [facility] Creatinine 1.46(H) 0.70 - 1.30 mg/dL LAB CHEMISTRY METHOD 08/19/2024 3:13 PM [facility] eGFR 47(L) >=60 mL/min/1. 73m2 LAB CHEMISTRY METHOD 08/19/2024 3:13 PM [facility] Comment:Calculation based on the??Chronic Kidney Disease Epidemiology Collaboration (CKD-EPI) equation refit??without adjustment for race. BUN/Creatinine Ratio 15.8 LAB CHEMISTRY METHOD 08/19/2024 3:13 PM [facility] Calcium 8.3(L) 8.5 - 10.5 mg/dL LAB CHEMISTRY METHOD 08/19/2024 3:13 PM [facility] AST (SGOT) 19 10 - 42 unit/L LAB CHEMISTRY METHOD 08/19/2024 3:13 PM [facility] ALT (SGPT) 12 10 - 60 unit/L LAB CHEMISTRY METHOD 08/19/2024 3:13 PM [facility] Alkaline Phosphatase 88 42 - 121 unit/L LAB CHEMISTRY METHOD 08/19/2024 3:13 PM [facility] Total Protein 5.5(L) 6.0 - 8.0 g/dL LAB CHEMISTRY METHOD 08/19/2024 3:13 PM [facility] Albumin 1.5(L) 3.2 - 5.0 g/dL LAB CHEMISTRY METHOD 08/19/2024 3:13 PM EST [facility] Total Bilirubin 0.3 0.0 - 1.4 mg/dL LAB CHEMISTRY METHOD 08/19/2024 3:13 PM [facility] Blood Venous blood specimen / Unknown Venipuncture / Unknown 08/19/2024 8:46 AM EST 08/19/2024 12:22 PM EST us Tabby Bledsoe MD LAB BLOOD ORDERABLES Fin al Result [facility] [address] [place] [address], * (ABNORMAL) Complete blood count (08/19/2024 8:46 AM EST) WBC 6.3 4.8 - 10.8 K/mcL LAB HEMETOLOGY METHOD 08/19/2024 1:38 PM [facility] RBC 2.80(L) 4.50 - 5.50 M/mcL LAB HEMETOLOGY METHOD 08/19/2024 1:38 PM [facility] Hemoglobin 7.5(L) 13.5 - 17.5 g/dL LAB HEMETOLOGY METHOD 08/19/2024 1:38 PM [facility] Hematocrit 25.6(L) 42.0 - 54.0 % LAB HEMETOLOGY METHOD 08/19/2024 1:38 PM [facility] MCV 92.4 79.0 - 98.0 FL LAB HEMETOLOGY METHOD 08/19/2024 1:38 PM [facility] MCH 27.1 27.0 - 32.0 pcg LAB HEMETOLOGY METHOD 08/19/2024 1:38 PM [facility] MCHC 29.3(L) 32.0 - 37.0 g/dL LAB HEMETOLOGY METHOD 08/19/2024 1:38 PM EST [facility] RDW 19.2(H) 11.0 - 15.0 % LAB HEMETOLOGY METHOD 08/19/2024 1:38 PM EST [facility] Platelets 289 130 - 400 K/mcL LAB HEMETOLOGY METHOD 08/19/2024 1:38 PM EST [facility] MPV 9.1 7.0 - 11.0 FL LAB HEMETOLOGY METHOD 08/19/2024 1:38 PM EST [facility] NRBC 0.0 <1.0 % LAB HEMETOLOGY METHOD 08/19/2024 1:38 PM EST [facility] NRBC Absolute 0.00 <0.10 K/mcL LAB HEMETOLOGY METHOD 08/19/2024 1:38 PM [facility] Blood Venous blood specimen / Unknown Venipuncture / Unknown 08/19/2024 8:46 AM EST 08/19/2024 12:22 PM EST Tabby Bledsoe MD LAB BLOOD ORDERABLES Fin al Result [facility] [address] [place] [address], documented in this encounter Visit Diagnoses Diagnosis Bacteremia documented in this encounter Additional Health Concerns 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
--- OUTSIDE RECORDS SUMMARY | 2024-08-20 13:16 | XMS_ITS | Encounter Summary ---
Author Organization [facility] Address [address] [place] [address] Care Team Providers Care Video Library Assistant Name Role Phone Uday Sheehan Primary Care Provider [phone] Encounter Details Date Type Department Care Team (Late st Contact Info) Description 03/17/2024 Lab Requisition [facility] [address] [place] [id number] No diagnosis Social History Tobacco Use Types [...] documented as of this encounter Care Teams Video Library Assistant Relationship Specialty Start Date End Date Uday Sheehan [address] [place] [address] dr Donna Thompson [place] [address] PCP - General Internal Medicine 03/27/24 documented as of this encounter
--- OUTSIDE RECORDS SUMMARY | 2024-08-20 13:16 | XMS_ITS | Encounter Summary ---
Author Organization [facility] Address [address] [place] [address] Care Team Providers Care Flute Teacher Name Role Phone Uday Sheehan Primary Care Provider [phone] Encounter Details Date Type Department Care Team (Late st Contact Info) Description 03/18/2024 Lab Requisition [facility] [address] [place] [address] Cecilio Bautista PA [address] [place] [address] Acute respiratory failure with hypoxia (HCC); No [...] Associated Diagnosis Comments CBC AUTO DIFFERENTIAL Routine 03/18/2024 9:25 AM EDT Acute respiratory failure with hypoxia (HCC) No diagnosis VANCOMYCIN, TROUGH Routine 03/18/2024 9: 25 AM EDT Acute respiratory failure with hypoxia (HCC) No diagnosis COMPREHENSIVE METABOLIC PANEL Routine 03/18/2024 9:25 AM EDT Acute respiratory failure with hypoxia (HCC) No diagnosis documented in this encounter Results * Due to [place] state law, this organization might not be sharing negative HIV tests. * (ABNORMAL) CBC Auto Differential (03/18/2024 9:25 AM EDT) WBC 7.4 4.8 - 10.8 10*3/uL 03/18/2024 10:10 AM EDT [facility] RBC 2.81(L) 4.70 - 6.10 10*6/uL 03/18/2024 10:10 AM EDT [facility] Hemoglobin 8.1(L) 13.7 - 16.5 g/dL 03/18/2024 10:10 AM EDT [facility] Hematocrit 23.6(L) 40.5 - 48.5 % 03/18/2024 10:10 AM EDT [facility] MCV 84.0 80.0 - 94.0 fL 03/18/2024 10:10 AM EDT [facility] MCH 28.8 26.0 - 34.0 pg 03/18/2024 10:10 AM EDT [facility] MCHC 34.3 31.0 - 36.0 g/dL 03/18/2024 10:10 AM EDT [facility] RDW 15.1(H) 12.0 - 15.0 % 03/18/2024 10:10 AM EDT [facility] RDW Standard Deviation 45.7(H) 35.1 - 43.9 fL 03/18/2024 10:10 AM EDT [facility] Platelets 159 140 - 440 10*3/uL 03/18/2024 10:10 AM EDT [facility] MPV 10.1 9.4 - 12.4 fL 03/18/2024 10:10 AM EDT [facility] Neutrophil % 55.7 50.0 - 75.0 % 03/18/2024 10:10 AM EDT [facility] Immature Grans % 0.3 0.0 - 0.9 % 03/18/2024 10:10 AM EDT [facility] Lymphocyte % 28.2 20.0 - 44.0 % 03/18/2024 10:10 AM EDT [facility] Monocyte % 12.5 0.0 - 14.0 % 03/18/2024 10:10 AM EDT [facility] Eosinophil % 2.9 0.0 - 5.0 % 03/18/2024 10:10 AM EDT [facility] Basophil % 0.4 0.0 - 2.0 % 03/18/2024 10:10 AM EDT [facility] Neutrophil # 4.10 1.80 - 7.70 10*3/uL 03/18/2024 10:10 AM EDT [facility] Immature Grans # <0.03 0.00 - 0.03 10*3/uL 03/18/2024 10:10 AM EDT [facility] Lymphocyte # 2.10 1.00 - 4.75 10*3/uL 03/18/2024 10:10 AM EDT [facility] Monocyte # 0.90 0.00 - 6.00 10*3/uL 03/18/2024 10:10 AM EDT [facility] Eosinophil # 0.20 0.00 - 0.80 10*3/uL 03/18/2024 10:10 AM EDT [facility] Basophil # <0.03 0.00 - 0.20 10*3/uL 03/18/2024 10:10 AM EDT [facility] nRBC % 0.0 0 - 0 /100 WBCs 03/18/2024 10:10 AM EDT [facility] nRBC # <0.01 0.00 - 0.13 10*3/uL 03/18/2024 10:10 AM EDT [facility] Blood Structure of peripheral vein / Unknown 03/18/2024 9:25 AM EDT 03/18/2024 9:25 AM EDT us Cecilio Badereldin PA LAB BLOOD ORDERABLES Final R esult Performing Organization Address [facility]/ZIP Co de Phone Number [facility] [address] [address], [place] [phone] * Vancomycin, Trough (03/18/2024 9:25 AM EDT) Vancomycin Trough 15.6 10.0 - 20.0 ug/mL 03/18/2024 10:36 AM EDT [facility] Blood Structure of peripheral vein / Unknown 03/18/2024 9:25 AM EDT 03/18/2024 9:25 AM EDT Cecilio Bautista AL LAB BLOOD ORDERABLES Final R esult Performing Organization Address [facility] Co de Phone Number [facility] [address] [address], [place] [phone] * (ABNORMAL) Comprehensive Metabolic Panel (03/18/2024 9:25 AM EDT) NA 135(L) 136 - 145 mmol/L 03/18/2024 10:42 AM EDT [facility] K 3.6 3.5 - 5.1 mmol/L 03/18/2024 10:42 AM EDT [facility] Cl 96(L) 98 - 109 mmol/L 03/18/2024 10:42 AM EDT [facility] CO2 27 23 - 32 mmol/L 03/18/2024 10:42 AM EDT [facility] Anion Gap 16 >=0 03/18/2024 10:42 AM EDT [facility] Glucose 106(H) 60 - 99 mg/dL 03/18/2024 10:42 AM EDT [facility] Creatinine 1.00 0.50 - 1.12 mg/dL 03/18/2024 10:42 AM EDT [facility] Calcium 8.7 8.4 - 10.4 mg/dL 03/18/2024 10:42 AM EDT [facility] Total Protein 6.1(L) 6.6 - 8.7 g/dL 03/18/2024 10:42 AM EDT [facility] Albumin 3.1(L) 3.5 - 5.0 g/dL 03/18/2024 10:42 AM T [facility] Bilirubin, Total 0.5 0.2 - 1.2 mg/dL 03/18/2024 10:42 AM EDT [facility] Alkaline Phosphatase 107 40 - 129 U/L 03/18/2024 10:42 AM EDT [facility] AST 32 0 - 40 U/L 03/18/2024 10:42 AM EDT [facility] ALT 25 <=41 U/L 03/18/2024 10:42 AM T [facility] BUN 21 8 - 23 mg/dL 03/18/2024 10:42 AM T [facility] eGFR 74 >=60 mL/min/1. 73m2 03/18/2024 10:42 AM T [facility] Comment:The estimated glomer ular filtration rate [...] in Diagnosing Kidney Disease . Globulin, Total 3.0 2.1 - 4.2 g/dL 03/18/2024 10:42 AM T [facility] A/G Ratio 1.0(L) 1.5 - 3.0 03/18/2024 10:42 AM T [facility] Blood Structure of peripheral vein / Unknown 03/18/2024 9:25 AM EDT 03/18/2024 9:25 AM EDT us Cecilio ZHU LAB BLOOD ORDERABLES Final R esult [facility] [address] [place] [address], documented in this encounter Visit Diagnoses Diagnosis [...] documented as of this encounter Care Teams Flute Teacher Relationship Specialty Start Date End Date Uday Sheehan [address] [place] [address] [place] [address] PCP - General Internal Medicine 03/27/24 documented as of this encounter
--- OUTSIDE RECORDS SUMMARY | 2024-08-20 13:16 | XMS_ITS | Encounter Summary ---
Author Organization [facility] Address [address] [place] [address] Care Team Providers Care Educational Technician Name Role Phone Uday Sheehna Primary Care Provider [phone] Encounter Details Date Type Department Care Team (Late st Contact Info) Description 03/11/2024 Lab Requisition [facility] [address] [place] [address] Lidia Barry NP [address] [place] [address] Acute and chronic respiratory failure with hypoxia [...] of this encounter Procedures * Due to [place] state law, this organization might not be sharing negative HIV tests. Procedure Name Priority Date/Time Associated Diagnosis Comments BLOOD CULTURE Routine 03/11/2024 1:30 PM EDT Acute and chronic respiratory failure with hypoxia (HCC) No diagnosis BLOOD CULTURE Routine 03/11/2024 1:30 PM EDT Acute and chronic respiratory failure with hypoxia (HCC) No diagnosis URINALYSIS W/REFLEX TO MICROSCOPIC & CULTURE Routine 03/11/2024 11:13 AM EDT Acute and chronic respiratory failure with hypoxia (HCC) No diagnosis BARCENAS TOP, URN Routine 03/11/2024 11:13 AM EDT Acute and chronic respiratory failure with hypoxia (HCC) No diagnosis LACTIC ACID, PLASMA W/ REPEAT Routine 03/11/2024 11:13 AM EDT Acute and chronic respiratory failure with hypoxia (HCC) No diagnosis MICROSCOPIC URINALYSIS ONLY Routine 03/11/2024 11:13 AM EDT Acute and chronic respiratory failure with hypoxia (HCC) No diagnosis UA/CULTURE REFLEX Routine 03/11/2024 11: 13 AM EDT Acute and chronic respiratory failure with hypoxia (HCC) No diagnosis CBC AUTO DIFFERENTIAL Routine 03/11/2024 11:13 AM EDT Acute and chronic respiratory failure with hypoxia (HCC) No diagnosis URINE CULTURE, ROUTINE Routine 11:13 AM EDT Acute and chronic respiratory failure with hypoxia (HCC) No diagnosis MAGNESIUM Routine 03/11/2024 11:13 AM EDT Acute and chronic respiratory failure with hypoxia (HCC) No diagnosis COMPREHENSIVE METABOLIC PANEL Routine 03/11/2024 11:13 AM EDT Acute and chronic respiratory failure with hypoxia (HCC) No diagnosis documented in this encounter Results * Due to [place] state law, this organization might not be sharing negative HIV tests. * Blood Culture (03/11/2024 1:30 PM EDT) Blood Culture No growth after 5 days 03/16/2024 3:06 PM EDT [facility] Blood Structure of peripheral vein / Unknown Venipuncture / Unknown 03/11/2024 1:30 PM EDT 03/11/2024 2:34 PM EDT us Lidia Barry LAB MICROBIOLOGY - GENERAL O RDERABLES Final Result Performing Organization Address City/[facility]/ZIP Co de Phone Number [facility] [address] [address], [place] [phone] * Blood Culture (03/11/2024 1:30 PM EDT) Blood Culture No growth after 5 days 03/16/2024 3:06 PM EDT [facility] Blood Structure of peripheral vein / Unknown Venipuncture / Unknown 03/11/2024 1:30 PM EDT 03/11/2024 2:34 PM EDT [facility] MICROBIOLOGY - GENERAL O RDERABLES Final Result Performing Organization Address [facility] Co de Phone Number [facility] [address] [address], [place] [phone] * (ABNORMAL) Microscopic Urinalysis Only (03/11/2024 11:13 AM EDT) RBC, Urine 40-50(A) None Seen, 0-2 /HPF 03/11/2024 3:06 PM EDT [facility] WBC, Urine 20-30(A) None Seen, 0-2 /HPF 03/11/2024 3:06 PM EDT [facility] Squamous Epithelial Cells, Urine 3-5 /HPF 03/11/2024 3:06 PM EDT [facility] Calcium Oxalate Crystals, Urine Moderate /HPF 03/11/2024 3:06 PM EDT [facility] Bacteria, Urine Moderate(A) None Seen /HPF 03/11/2024 3:06 PM EDT [facility] Urine Urine specimen collection, clean catch / Unknown Non-Blood Collection / Unknown 03/11/2024 11:13 AM EDT 03/11/2024 2:45 PM EDT us Lidia Barry [facility] LAB URINE ORDERABLES Final R esult Performing Organization Address [facility] Co de Phone Number [facility] [address] [address], * (ABNORMAL) Urine Culture, Routine (03/11/2024 11:13 AM EDT) Urine Culture >100,000 CFU/mL Pseudomonas aeruginosa(A) MINIMUM INHIBITORY CONCENTRATION ([place]) 03/15/2024 8:12 AM EDT [facility] Urine Urine specimen collection, clean catch / Unknown Non-Blood Collection / Unknown 03/11/2024 11:13 AM EDT 03/11/2024 2:45 PM EDT Narrative Organism Antibiotic Method Susceptibility Pseudomonas aeruginosa Cefepime MINIMUM INHIBITORY CONCENTRATION ([place]) <=1 ug/ml: Susceptible Pseudomonas aeruginosa Ceftazidime MINIMUM INHIBITORY CONCENTRATION ([place]) 2 ug/ml: Susceptible Pseudomonas aeruginosa Ciprofloxacin MINIMUM INHIBITORY CONCENTRATION ([place]) 0.5 ug/ml: Susceptible Pseudomonas aeruginosa Imipenem MINIMUM INHIBITORY CONCENTRATION ([place]) 2 ug/ml: Susceptible Pseudomonas aeruginosa Levofloxacin MINIMUM INHIBITORY CONCENTRATION ([place]) 0.5 ug/ml: Susceptible Pseudomonas aeruginosa Piperacillin + Tazobactam MINIMUM INHIBITORY CONCENTRATION ([place]) <=4 ug/ml: Susceptible Pseudomonas aeruginosa Tobramycin MINIMUM INHIBITORY CONCENTRATION ([place]) <=1 ug/ml: Susceptible Comment:[place] values in mcg/mL . Lidia Barry [facility] LAB MICROBIOLOGY - GENERAL O RDERABLES Final Result Performing Organization Address [facility] Co de Phone Number [facility] [address] [address], [place] [phone] * Lactic Acid, Plasma (03/11/2024 11:13 AM EDT) Lactic Acid 0.8 0.5 - 2.0 mmol/L 03/11/2024 3:02 PM EDT [facility] Blood Structure of peripheral vein / Unknown 03/11/2024 11:13 AM EDT 03/11/2024 2:40 PM EDT us Lidia [facility] LAB BLOOD ORDERABLES Final R esult Performing Organization Address [facility]/ZIP Co de Phone Number [facility] [address] [address], [place] [phone] * Magnesium (03/11/2024 11:13 AM EDT) MG 1.8 1.5 - 2.5 mg/dL 03/11/2024 3:03 PM EDT [facility] Blood Structure of peripheral vein / Unknown Venipuncture / Unknown 03/11/2024 11:13 AM EDT 03/11/2024 2:34 PM EDT Lidia [facility] LAB BLOOD ORDERABLES Final R esult Performing Organization Address [facility] de Phone Number [facility] [address] [address], [place] [phone] * (ABNORMAL) Comprehensive Metabolic Panel (03/11/2024 11:13 AM EDT) NA 136 136 - 145 mmol/L 03/11/2024 3:03 PM EDT [facility] K 3.7 3.5 - 5.1 mmol/L 03/11/2024 3:03 PM EDT [facility] Cl 101 98 - 109 mmol/L 03/11/2024 3:03 PM EDT [facility] CO2 24 23 - 32 mmol/L 03/11/2024 3:03 PM EDT [facility] Anion Gap 15 >=0 03/11/2024 3:03 PM EDT [facility] Glucose 123(H) 60 - 99 mg/dL 03/11/2024 3:03 PM EDT [facility] Creatinine 1.26(H) 0.50 - 1.12 mg/dL 03/11/2024 3:03 PM EDT [facility] Calcium 8.9 8.4 - 10.4 mg/dL 03/11/2024 3:03 PM EDT [facility] Total Protein 5.6(L) 6.6 - 8.7 g/dL 03/11/2024 3:03 PM EDT [facility] Albumin 3.2(L) 3.5 - 5.0 g/dL 03/11/2024 3:03 PM EDT [facility] Bilirubin, Total 0.5 0.2 - 1.2 mg/dL 03/11/2024 3:03 PM EDT [facility] Alkaline Phosphatase 103 40 - 129 U/L 03/11/2024 3:03 PM EDT [facility] AST 73(H) 0 - 40 U/L 03/11/2024 3:03 PM EDT [facility] ALT 73(H) <=41 U/L 03/11/2024 3:03 PM EDT [facility] BUN 16 8 - 23 mg/dL 03/11/2024 3:03 PM T [facility] eGFR 56(L) >=60 mL/min/1. 73m2 03/11/2024 3:03 PM T [facility] Comment:The [...] in Diagnosing Kidney Disease . Globulin, Total 2.4 2.1 - 4.2 g/dL 03/11/2024 3:03 PM T [facility] A/G Ratio 1.3(L) 1.5 - 3.0 03/11/2024 3:03 PM [facility] Blood Structure of peripheral vein / Unknown Venipuncture / Unknown 03/11/2024 11:13 AM EDT 03/11/2024 2:34 PM EDT us Lidia Barry [facility] LAB BLOOD ORDERABLES Final R esult [facility] [address] [facility] [address] [place] [address], [place] [phone] * (ABNORMAL) CBC Auto Differential (03/11/2024 11:13 AM EDT) WBC 8.5 4.8 - 10.8 10*3/uL 03/11/2024 2:44 PM EDT [facility] RBC 3.04(L) 4.70 - 6.10 10*6/uL 03/11/2024 2:44 PM EDT [facility] Hemoglobin 8.6(L) 13.7 - 16.5 g/dL 03/11/2024 2:44 PM EDT [facility] Hematocrit 26.1(L) 40.5 - 48.5 % 03/11/2024 2:44 PM EDT [facility] MCV 85.9 80.0 - 94.0 fL 03/11/2024 2:44 PM EDT [facility] MCH 28.3 26.0 - 34.0 pg 03/11/2024 2:44 PM EDT [facility] MCHC 33.0 31.0 - 36.0 g/dL 03/11/2024 2:44 PM EDT [facility] RDW 14.9 12.0 - 15.0 % 03/11/2024 2:44 PM EDT [facility] RDW Standard Deviation 47.3(H) 35.1 - 43.9 fL 03/11/2024 2:44 PM EDT [facility] Platelets 131(L) 140 - 440 10*3/uL 03/11/2024 2:44 PM EDT [facility] MPV 10.6 9.4 - 12.4 fL 03/11/2024 2:44 PM EDT [facility] Neutrophil % 65.2 50.0 - 75.0 % 03/11/2024 2:44 PM EDT [facility] Immature Grans % 0.4 0.0 - 0.9 % 03/11/2024 2:44 PM EDT [facility] Lymphocyte % 20.9 20.0 - 44.0 % 03/11/2024 2:44 PM EDT [facility] Monocyte % 10.9 0.0 - 14.0 % 03/11/2024 2:44 PM EDT [facility] Eosinophil % 2.2 0.0 - 5.0 % 03/11/2024 2:44 PM EDT [facility] Basophil % 0.4 0.0 - 2.0 % 03/11/2024 2:44 PM EDT [facility] Neutrophil # 5.51 1.80 - 7.70 10*3/uL 03/11/2024 2:44 PM EDT [facility] Immature Grans # 0.03 0.00 - 0.03 10*3/uL 03/11/2024 2:44 PM EDT [facility] Lymphocyte # 1.80 1.00 - 4.75 10*3/uL 03/11/2024 2:44 PM EDT [facility] Monocyte # 0.90 0.00 - 6.00 10*3/uL 03/11/2024 2:44 PM EDT [facility] Eosinophil # 0.20 0.00 - 0.80 10*3/uL 03/11/2024 2:44 PM EDT [facility] Basophil # <0.03 0.00 - 0.20 10*3/uL 03/11/2024 2:44 PM EDT [facility] nRBC % 0.0 0 - 0 /100 WBCs 03/11/2024 2:44 PM EDT [facility] nRBC # <0.01 0.00 - 0.13 10*3/uL 03/11/2024 2:44 PM EDT [facility] Blood Structure of peripheral vein / Unknown Venipuncture / Unknown 03/11/2024 11:13 AM EDT 03/11/2024 2:34 PM EDT [facility] LAB BLOOD ORDERABLES Final R esult Performing Organization Address [facility]/ZIP Co de Phone Number [facility] [address] [address], [place] [phone] * Barcenas Top, Urine (03/11/2024 11:13 AM EDT) Extra Tube Hold for add-ons. 03/11/2024 4:05 PM EDT [facility] Comment:Auto resulted. Urine Urine specimen collection, clean catch / Unknown Non-Blood Collection / Unknown 03/11/2024 11:13 AM EDT 03/11/2024 2:30 PM EDT [facility] LAB URINE ORDERABLES Final R esult Performing Organization Address [facility] Co de Phone Number [facility] [address] [address], [place] [phone] * (ABNORMAL) Urinalysis W/Reflex to Microscopic & Culture (03/11/2024 11:13 AM EDT) Color, Urine Dark Yellow Yellow 03/11/2024 2:45 PM EDT [facility] Clarity, Urine Turbid(A) Clear 03/11/2024 2:45 PM EDT [facility] Specific [place], Urine 1.020 1.005 - 1.030 03/11/2024 2:45 PM EDT [facility] pH, Urine 5.5 5.0 - 8.0 03/11/2024 2:45 PM EDT [facility] Protein, Urine 100(A) Negative mg/dL 03/11/2024 2:45 PM EDT [facility] Glucose, Urine Negative Negative mg/dL 03/11/2024 2:45 PM EDT [facility] Ketones, Urine Trace(A) Negative mg/dL 03/11/2024 2:45 PM EDT [facility] Bilirubin, Urine Negative Negative 03/11/2024 2:45 PM EDT [facility] Blood, Urine Large(A) Negative 03/11/2024 2:45 PM EDT [facility] Nitrite, Urine Positive(A) Negative 03/11/2024 2:45 PM EDT [facility] Urobilinogen, Urine 1.0 0.2 - 1.0 E.U./dL 03/11/2024 2:45 PM EDT [facility] Leukocyte Esterase, Urine Moderate(A) Negative 03/11/2024 2:45 PM EDT [facility] Urine Urine specimen collection, clean catch / Unknown Non-Blood Collection / Unknown 03/11/2024 11:13 AM EDT 03/11/2024 2:30 PM EDT us Lidia Barry LAB URINE ORDERABLES Final R esult Performing Organization Address City/State/[facility] Co de Phone Number [facility] [address] [facility] [address] [place] [address], [place] [phone] documented in this encounter Visit Diagnoses Diagnosis [...] documented as of this encounter Care Teams Educational Technician Relationship Specialty Start Date End Date Uday Sheehan [address] [place] [address] [place] [address] PCP - General Internal Medicine 03/27/24 documented as of this encounter
--- OUTSIDE RECORDS SUMMARY | 2024-08-20 13:16 | XMS_ITS | Encounter Summary ---
Author Organization [facility] Address [address] [place] [address] Care Team Providers Care Gang Head Saw Operator Name Role Phone Uday Sheehan Primary Care Provider [phone] Encounter Details Date Type Department Care Team (Late st Contact Info) Description 03/08/2024 Lab Requisition [facility] [address] [place] [address] Lidia Barry, CB [address] [place] [address] Acute respiratory failure with hypoxia (HCC); No [...] of this encounter Procedures * Due to [place] state law, this organization might not be sharing negative HIV tests. Procedure Name Priority Date/Time Associated Diagnosis Comments STOOL CULTURE Routine 03/08/2024 9:28 AM EDT Acute respiratory failure with hypoxia (HCC) No diagnosis SHIGA TOXIN ANTIGENS (LAB ONLY REFLEX) - [facility] Routine 03/08/2024 9:28 AM EDT Acute respiratory failure with hypoxia (HCC) No diagnosis CBC AUTO DIFFERENTIAL Routine 03/08/2024 9:28 AM EDT Acute respiratory failure with hypoxia (HCC) No diagnosis MAGNESIUM Routine 03/08/2024 9:28 AM EDT Acute respiratory failure with hypoxia (HCC) No diagnosis COMPREHENSIVE METABOLIC PANEL Routine 03/08/2024 9:28 AM EDT Acute respiratory failure with hypoxia (HCC) No diagnosis documented in this encounter Results * Due to [place] state law, this organization might not be sharing negative HIV tests. * Shiga Toxin Antigens (Lab only Reflex) - [facility] (03/08/2024 9:28 AM EDT) [facility] Toxin 1 Negative Negative [facility] 03/09/2024 9:37 AM EDT [facility] Toxin 2 Negative Negative [facility] 03/09/2024 9:37 AM EDT [facility] Stool Rectal route / Unknown Non-Blood Collection / Unknown 03/08/2024 9:28 AM EDT 03/08/2024 9:28 AM EDT us Lidia Barry [employer]ENT[employer] LAB MICROBIOLOGY - GENERAL O RDERABLES Final Result Performing Organization Address [facility] Co de Phone Number [facility] [address] [place] [address] [address] [place] [address], [place] [phone] * Stool Culture (03/08/2024 9:28 AM EDT) Stool Culture Normal stool nohemi: no E. coli O157, Salmonella, Shigella, or Campylobacter isolated [facility] 03/11/2024 8:47 AM EDT [facility] Stool Rectal route / Unknown Non-Blood Collection / Unknown 03/08/2024 9:28 AM EDT 03/08/2024 9:28 AM EDT us Lidia Barry MODEL MAKER APPRENTICE LAB MICROBIOLOGY - GENERAL O RDERABLES Final Result [facility] [address] [facility] [address] [place] [address], * (ABNORMAL) CBC Auto Differential (03/08/2024 9:28 AM EDT) WBC 9.4 4.8 - 10.8 10*3/uL 03/08/2024 9:58 AM EDT [facility] RBC 3.27(L) 4.70 - 6.10 10*6/uL 03/08/2024 9:58 AM EDT [facility] Hemoglobin 9.1(L) 13.7 - 16.5 g/dL 03/08/2024 9:58 AM EDT [facility] Hematocrit 28.1(L) 40.5 - 48.5 % 03/08/2024 9:58 AM EDT [facility] MCV 85.9 80.0 - 94.0 fL 03/08/2024 9:58 AM EDT [facility] MCH 27.8 26.0 - 34.0 pg 03/08/2024 9:58 AM EDT [facility] MCHC 32.4 31.0 - 36.0 g/dL 03/08/2024 9:58 AM EDT [facility] RDW 15.4(H) 12.0 - 15.0 % 03/08/2024 9:58 AM EDT [facility] RDW Standard Deviation 48.1(H) 35.1 - 43.9 fL 03/08/2024 9:58 AM EDT [facility] Platelets 144 140 - 440 10*3/uL 03/08/2024 9:58 AM EDT [facility] MPV 10.9 9.4 - 12.4 fL 03/08/2024 9:58 AM EDT [facility] Neutrophil % 58.0 50.0 - 75.0 % 03/08/2024 9:58 AM EDT [facility] Immature Grans % 0.6 0.0 - 0.9 % 03/08/2024 9:58 AM EDT [facility] Lymphocyte % 26.8 20.0 - 44.0 % 03/08/2024 9:58 AM EDT [facility] Monocyte % 8.6 0.0 - 14.0 % 03/08/2024 9:58 AM EDT [facility] Eosinophil % 5.7(H) 0.0 - 5.0 % 03/08/2024 9:58 AM EDT [facility] Basophil % 0.3 0.0 - 2.0 % 03/08/2024 9:58 AM EDT [facility] Neutrophil # 5.44 1.80 - 7.70 10*3/uL 03/08/2024 9:58 AM EDT [facility] Immature Grans # 0.06(H) 0.00 - 0.03 10*3/uL 03/08/2024 9:58 AM EDT [facility] Lymphocyte # 2.50 1.00 - 4.75 10*3/uL 03/08/2024 9:58 AM EDT [facility] Monocyte # 0.80 0.00 - 6.00 10*3/uL 03/08/2024 9:58 AM EDT [facility] Eosinophil # 0.50 0.00 - 0.80 10*3/uL 03/08/2024 9:58 AM EDT [facility] Basophil # <0.03 0.00 - 0.20 10*3/uL 03/08/2024 9:58 AM EDT [facility] nRBC % 0.0 0 - 0 /100 WBCs 03/08/2024 9:58 AM EDT [facility] nRBC # <0.01 0.00 - 0.13 10*3/uL 03/08/2024 9:58 AM EDT [facility] Blood Structure of peripheral vein / Unknown Venipuncture / Unknown 03/08/2024 9:28 AM EDT 03/08/2024 9:28 AM EDT us Lidia Barry NP LAB BLOOD ORDERABLES Final R esult Performing Organization Address [facility] Co de Phone Number [facility] [address] [address], [place] [phone] * Magnesium (03/08/2024 9:28 AM EDT) MG 1.8 1.5 - 2.5 mg/dL 03/08/2024 10:10 AM EDT [facility] Blood Structure of peripheral vein / Unknown Venipuncture / Unknown 03/08/2024 9:28 AM EDT 03/08/2024 9:28 AM EDT [facility] BLOOD ORDERABLES Final R esult Performing Organization Address [facility] Co de Phone Number [facility] [address] [address], [place] [phone] * (ABNORMAL) Comprehensive Metabolic Panel (03/08/2024 9:28 AM EDT) NA 138 136 - 145 mmol/L 03/08/2024 10:10 AM EDT [facility] K 3.8 3.5 - 5.1 mmol/L 03/08/2024 10:10 AM EDT [facility] Cl 104 98 - 109 mmol/L 03/08/2024 10:10 AM EDT [facility] CO2 23 23 - 32 mmol/L 03/08/2024 10:10 AM EDT [facility] Anion Gap 15 >=0 03/08/2024 10:10 AM EDT [facility] Glucose 107(H) 60 - 99 mg/dL 03/08/2024 10:10 AM EDT [facility] Creatinine 1.20(H) 0.50 - 1.12 mg/dL 03/08/2024 10:10 AM EDT [facility] Calcium 9.1 8.4 - 10.4 mg/dL 03/08/2024 10:10 AM EDT [facility] Total Protein 6.5(L) 6.6 - 8.7 g/dL 03/08/2024 10:10 AM EDT [facility] Albumin 3.2(L) 3.5 - 5.0 g/dL 03/08/2024 10:10 AM EDT [facility] Bilirubin, Total 0.5 0.2 - 1.2 mg/dL 03/08/2024 10:10 AM EDT [facility] Alkaline Phosphatase 111 40 - 129 U/L 03/08/2024 10:10 AM EDT [facility] AST 29 0 - 40 U/L 03/08/2024 10:10 AM EDT [facility] ALT 34 <=41 U/L 03/08/2024 10:10 AM EDT [facility] BUN 27(H) 8 - 23 mg/dL 03/08/2024 10:10 AM EDT [facility] eGFR 60 >=60 mL/min/1. 73m2 03/08/2024 10:10 AM EDT [facility] Comment:The estimated glomer ular filtration [...] Globulin, Total 3.3 2.1 - 4.2 g/dL 03/08/2024 10:10 AM EDT [facility] A/G Ratio 1.0(L) 1.5 - 3.0 03/08/2024 10:10 AM EDT [facility] Blood Structure of peripheral vein / Unknown Venipuncture / Unknown 03/08/2024 9:28 AM EDT 03/08/2024 9:28 AM EDT us Lidia [place] [employer]PRENT[employer] LAB BLOOD ORDERABLES Final R esult [facility] [address] [place] [address], documented in this encounter Visit Diagnoses Diagnosis [...] documented as of this encounter Care Teams Gang Head Saw Operator Relationship Specialty Start Date End Date Uday Sheehan [address] [place] [address] [place] [address] PCP - General Internal Medicine 03/27/24 documented as of this encounter
--- OUTSIDE RECORDS SUMMARY | 2024-08-20 13:16 | XMS_ITS | Referral Summary ---
Author Organization [facility] Address [address] [place] [address] Care Team Providers Care Dairy Technologist Name Role Phone Uday Sheehan Primary Care Provider [phone] Encounters Date Type Department Care Team Description 05/28/2024 Lab Requisition [facility] Lab Department [address] [place] [address] Lidia Barry NP Acute and chronic respiratory failure with hypoxia (HCC); No diagnosis 05/28/2024 Lab Requisition [facility] Lab [address] [place] [address] Valarie Pierson MD Acute and chronic respiratory failure with hypoxia (HCC); No diagnosis 05/27/2024 Lab Requisition [facility] Lab [address] [place] [address] Salo Whyte MD Acute and chronic respiratory failure with hypoxia (HCC); No diagnosis 05/23/2024 Lab Requisition [facility] Lab [address] [place] [address] Lidia Barry NP Acute and chronic respiratory failure with hypoxia (HCC); No diagnosis 05/21/2024 Orders Only [facility] Interventional Radiology [address] [place] [phone] Cedric Blank MD 05/20/2024 Lab Requisition [facility] Lab [address] [place] [id number] Salo Whyte MD Acute and chronic respiratory failure with hypoxia (HCC); No diagnosis from Last 3 Months Allergies No known active allergies Medications acetaminophen [...] tube route 2 times a day. 04/08/20 24 Active apixaban (ELIQUIS) 5 mg tablet Take 1 tablet (5 mg total) by mouth every 12 hours. 04/08/20 24 Active tfebs-fhjj-QjJPY-c iwkkk-kz-nzx (VIDHYA WITH COLLAGEN) 7-7-1.5 gram powder in [...] mL via nebulizer every 8 hours. 04/08/20 025 Active Active Problems Problem Noted Date [...] flushes 200ml q6h (D1: 03/31/24) Paroxysmal A-fib ([facility]) 03/28/2024 Assessment & Plan (04/02/2024 5:05 PM [...] CAD - amlodipine 10mg daily Systolic CHF ([facility]) 03/28/2024 Assessment & Plan (04/02/2024 5:05 PM [...] WBC of 7.4. - [facility] (percutaneous endoscopic gastrostomy) status 03/28/2024 [...] consolidation LLL. O2 increased to 50% per ROAD CONSULTANT: plugging secretions but not clogged at that [...] consolidation LLL. O2 increased to 50% per ROAD CONSULTANT: plugging secretions but not clogged at that [...] 3:28 PM EDT): As per AHRF section. Immunizations Name Administration Dates Next Due Influenza, [...] 04/07/2024 8:23 AM EDT Plan of Treatment Not on file Procedures * Due to [place] state law, this organization might not be [...] to Health Maintenance Results * Due to [place] state law, this organization might not be sharing negative HIV tests. * (ABNORMAL) Troponin T, High Sensitivity (05/28/2024 8:45 PM EST) Only the most recent of2 resultswithin the time period is included. Troponin T High Sensitivity 35(H) 6 - 22 ng/L 05/28/2024 9:42 PM EST [facility] Comment: Nc-Zvnsyvzd-M level of 52 ng/L or higher at [...] be evaluated in line with the 4th [place] Definition of AMI. Troponin baseline and serial [...] 8:45 PM EST 05/28/2024 9:26 PM EST [facility] BEARING GRINDER LAB BLOOD ORDERABLES Final R esult [facility] [address] [place] [address], * (ABNORMAL) CBC Auto Differential (05/27/2024 10:09 AM EST) Only the most recent of3 resultswithin the time period is included. WBC 6.1 4.8 - 10.8 10*3/uL 05/27/2024 10:58 AM EST [facility] RBC 3.05(L) 4.70 - 6.10 10*6/uL 05/27/2024 10:58 AM EST [facility] Hemoglobin 8.4(L) 13.7 - 16.5 g/dL 05/27/2024 10:58 AM EST [facility] Hematocrit 26.6(L) 40.5 - 48.5 % 05/27/2024 10:58 AM EST [facility] MCV 87.2 80.0 - 94.0 fL 05/27/2024 10:58 AM EST [facility] MCH 27.5 26.0 - 34.0 pg 05/27/2024 10:58 AM EST [facility] MCHC 31.6 31.0 - 36.0 g/dL 05/27/2024 10:58 AM [facility] RDW 17.0(H) 12.0 - 15.0 % 05/27/2024 10:58 AM EST [facility] RDW Standard Deviation 54.3(H) 35.1 - 43.9 fL 05/27/2024 10:58 AM [facility] Platelets 147 140 - 440 10*3/uL 05/27/2024 10:58 AM [facility] MPV 10.1 9.4 - 12.4 fL 05/27/2024 10:58 AM [facility] Neutrophil % 57.4 50.0 - 75.0 % 05/27/2024 10:58 AM [facility] Immature Grans % 0.3 0.0 - 0.9 % 05/27/2024 10:58 AM [facility] Lymphocyte % 23.7 20.0 - 44.0 % 05/27/2024 10:58 AM [facility] Monocyte % 12.7 0.0 - 14.0 % 05/27/2024 10:58 AM [facility] Eosinophil % 5.6(H) 0.0 - 5.0 % 05/27/2024 10:58 AM EST [facility] Basophil % 0.3 0.0 - 2.0 % 05/27/2024 10:58 AM [facility] Neutrophil # 3.51 1.80 - 7.70 10*3/uL 05/27/2024 10:58 AM EST [facility] Immature Grans # <0.03 0.00 - 0.03 10*3/uL 05/27/2024 10:58 AM [facility] Lymphocyte # 1.50 1.00 - 4.75 10*3/uL 05/27/2024 10:58 AM [facility] Monocyte # 0.80 0.00 - 6.00 10*3/uL 05/27/2024 10:58 AM EST [facility] Eosinophil # 0.30 0.00 - 0.80 10*3/uL 05/27/2024 10:58 AM EST [facility] Basophil # <0.03 0.00 - 0.20 10*3/uL 05/27/2024 10:58 AM EST [facility] nRBC % 0.0 0 - 0 /100 WBCs 05/27/2024 10:58 AM EST [facility] nRBC # <0.01 0.00 - 0.13 10*3/uL 05/27/2024 10:58 AM EST [facility] Blood Structure of peripheral vein / Unknown Venipuncture / Unknown 05/27/2024 10:09 AM EST 05/27/2024 10:10 AM EST Salo Whyte MD LAB BLOOD ORDERABLES Final Result [facility] [address] [facility] [address] [place] [address], * (ABNORMAL) Comprehensive Metabolic Panel (05/27/2024 10:09 AM EST) Only the most recent of3 resultswithin the time period is included. NA 142 136 - 145 mmol/L 05/27/2024 11:11 AM EST [facility] K 3.9 3.5 - 5.1 mmol/L 05/27/2024 11:11 AM EST [facility] Cl 104 98 - 109 mmol/L 05/27/2024 11:11 AM EST [facility] CO2 30 22 - 32 mmol/L 05/27/2024 11:11 AM EST [facility] Anion Gap 12 >=0 05/27/2024 11:11 AM EST [facility] Glucose 99 60 - 99 mg/dL 05/27/2024 11:11 AM EST [facility] Creatinine 1.71(H) 0.50 - 1.12 mg/dL 05/27/2024 11:11 AM [facility] Calcium 9.4 8.4 - 10.4 mg/dL 05/27/2024 11:11 AM [facility] Total Protein 6.0(L) 6.6 - 8.7 g/dL 05/27/2024 11:11 AM [facility] Albumin 2.9(L) 3.5 - 5.0 g/dL 05/27/2024 11:11 AM [facility] Bilirubin, Total 0.3 0.2 - 1.2 mg/dL 05/27/2024 11:11 AM [facility] Alkaline Phosphatase 113 40 - 129 U/L 05/27/2024 11:11 AM [facility] AST 18 0 - 40 U/L 05/27/2024 11:11 AM [facility] ALT 12 <=41 U/L 05/27/2024 11:11 AM [facility] BUN 41(H) 8 - 23 mg/dL 05/27/2024 11:11 AM [facility] eGFR 39(L) >=60 mL/min/1. 73m2 05/27/2024 11:11 AM [facility] Comment:The estimated glomer ular [...] 2.1 - 4.2 g/dL 05/27/2024 11:11 AM [facility] A/G Ratio 0.9(L) 1.5 - 3.0 05/27/2024 11:11 AM EST [facility] Blood Structure of peripheral vein / Unknown Venipuncture / Unknown 05/27/2024 10:09 AM EST 05/27/2024 10:10 AM EST Salo Whyte MD LAB BLOOD ORDERABLES Final Result Performing Organization Address City/[facility]/ZIP Co de Phone Number [facility] [address] [address], [place] [phone] * (ABNORMAL) Sedimentation Rate (05/23/2024 9:28 AM EST) Sed Rate 77(H) 0 - 19 mm/Hr 05/23/2024 10:52 AM EST [facility] Blood Structure of peripheral vein / Unknown Venipuncture / Unknown 05/23/2024 9:28 AM EST 05/23/2024 10:40 AM EST Lidia Barry BEARING GRINDER LAB BLOOD ORDERABLES Final R esult Performing Organization Address [facility] Co de Phone Number [facility] [address] [address], [place] [phone] * (ABNORMAL) C-Reactive Protein (05/23/2024 9:28 AM EST) C Reactive Protein 12.4(H) <=10.0 mg/L 05/23/2024 11:08 AM EST [facility] Blood Structure of peripheral vein / Unknown Venipuncture / Unknown 05/23/2024 9:28 AM EST 05/23/2024 10:40 AM EST us Lidia aBrry BEARING GRINDER LAB BLOOD ORDERABLES Final R esult Performing Organization Address City/[facility]/ZIP Co de Phone Number [facility] [address] [address], [place] [phone] * Phosphorus (04/08/2024 5:21 AM EDT) Phosphorus 4.2 2.5 - 4.5 mg/dL 04/08/2024 5:46 AM EDT [facility] Blood Structure of peripheral vein / Unknown Venipuncture / Unknown 04/08/2024 5:21 AM EDT 04/08/2024 5:24 AM EDT us Jori Longo NP LAB BLOOD ORDERABLES Fi nal Result [facility] [address] [place] [address], [place] from Last 3 Months or Most Recently Relevant to Health Maintenance Additional Health Concerns Infection Onset Date Last Indicated Multidrug resistant organisms MRSA 03/25/2024 05/07/2024 Insurance [facility] MEDIC[facility] Advance Directives Documents on File Type Date Recorded Patient Power Grader Operator Expl anation Health Care Proxy 03/31/2024 10:53 [...] [place] Daughter Next of Kin Care Teams Dairy Technologist Relationship Specialty Start Date End Date Uday Sheehan [address] [place] [address] dr Donna Thompson, ALEC [address] PCP - General Internal Medicine 03/27/24
--- OUTSIDE RECORDS SUMMARY | 2024-08-20 13:16 | XMS_ITS | Encounter Summary ---
Author Organization [facility] Address [address] [place] [address] Care Team Providers Care Dredge Or Barge Shore Hand Name Role Phone Uday Sheehan Primary Care Provider [phone] Encounter Details Date Type Department Care Team (Late st Contact Info) Description 05/28/2024 Lab Requisition [facility] Lab Department [address] [place] [address] Lidia Barry NP [address] [place] [address] Acute and chronic respiratory failure with hypoxia [...] of this encounter Procedures * Due to [place] law, this organization might not be sharing negative HIV tests. Procedure Name Priority Date/Time Associated Diagnosis Comments TROPONIN T HIGH SENSITIVITY Routine 05/28/2024 8:45 PM EST Acute and chronic respiratory failure with hypoxia (HCC) No diagnosis documented in this encounter Results * Due to [place] law, this organization might not be sharing negative HIV tests. * (ABNORMAL) Troponin T, High Sensitivity (05/28/2024 8:45 PM EST) Troponin T High Sensitivity 35(H) 6 - 22 ng/L 05/28/2024 9:42 PM EST [facility] Comment: Gw-Ebmuaurx-T level of 52 ng/L or higher at [...] be evaluated in line with the 4th [place] Definition of AMI. Troponin baseline and serial [...] 8:45 PM EST 05/28/2024 9:26 PM EST [facility] PULLING MACHINE OPERATOR LAB BLOOD ORDERABLES Final R esult [facility] [address] [place] [address], documented in this encounter Visit Diagnoses Diagnosis Acute and chronic respiratory failure with hypoxia (HCC) No diagnosis documented in this encounter Additional Health Concerns Infection Onset Date Last Indicated Resolved Time Multidrug resistant organisms MRSA 03/25/20242023 documented as of this encounter Care Teams Dredge Or Barge Shore Hand Relationship Specialty Start Date End Date Uday Sheehan [address] [place] [address] [place] [address] PCP - General Internal Medicine 03/27/24 documented as of this encounter
--- OUTSIDE RECORDS SUMMARY | 2024-08-20 13:16 | XMS_ITS | Encounter Summary ---
Author Organization [facility] Address [address] [place] [address] Care Team Providers Care Char House Supervisor Name Role Phone Uday Sheehan Primary Care Provider [phone] Encounter Details Date Type Department Care Team (Late st Contact Info) Description 03/07/2024 Lab Requisition [facility] [address] [place] [address] Valarie Pierson MD [address] [place] [address] Acute and chronic respiratory failure with hypoxia [...] of this encounter Procedures * Due to [place] state law, this organization might not be sharing negative HIV tests. Procedure Name Priority Date/Time Associated Diagnosis Comments CBC AUTO DIFFERENTIAL Routine 03/07/2024 11:28 AM EDT Acute and chronic respiratory failure with hypoxia (HCC) No diagnosis COMPREHENSIVE METABOLIC PANEL Routine 03/07/2024 11:28 AM EDT Acute and chronic respiratory failure with hypoxia (HCC) No diagnosis documented in this encounter Results * Due to [place] state law, this organization might not be sharing negative HIV tests. * (ABNORMAL) CBC Auto Differential (03/07/2024 11:28 AM EDT) WBC 9.8 4.8 - 10.8 10*3/uL 03/07/2024 12:12 PM EDT [facility] RBC 3.39(L) 4.70 - 6.10 10*6/uL 03/07/2024 12:12 PM EDT [facility] Hemoglobin 9.4(L) 13.7 - 16.5 g/dL 03/07/2024 12:12 PM EDT [facility] Hematocrit 29.9(L) 40.5 - 48.5 % 03/07/2024 12:12 PM EDT [facility] MCV 88.2 80.0 - 94.0 fL 03/07/2024 12:12 PM EDT [facility] MCH 27.7 26.0 - 34.0 pg 03/07/2024 12:12 PM EDT [facility] MCHC 31.4 31.0 - 36.0 g/dL 03/07/2024 12:12 PM EDT [facility] RDW 15.5(H) 12.0 - 15.0 % 03/07/2024 12:12 PM EDT [facility] RDW Standard Deviation 50.0(H) 35.1 - 43.9 fL 03/07/2024 12:12 PM EDT [facility] Platelets 174 140 - 440 10*3/uL 03/07/2024 12:12 PM EDT [facility] MPV 10.5 9.4 - 12.4 fL 03/07/2024 12:12 PM EDT [facility] Neutrophil % 59.4 50.0 - 75.0 % 03/07/2024 12:12 PM EDT [facility] Immature Grans % 0.7 0.0 - 0.9 % 03/07/2024 12:12 PM EDT [facility] Lymphocyte % 23.8 20.0 - 44.0 % 03/07/2024 12:12 PM EDT [facility] Monocyte % 9.9 0.0 - 14.0 % 03/07/2024 12:12 PM EDT [facility] Eosinophil % 5.7(H) 0.0 - 5.0 % 03/07/2024 12:12 PM EDT [facility] Basophil % 0.5 0.0 - 2.0 % 03/07/2024 12:12 PM EDT [facility] Neutrophil # 5.82 1.80 - 7.70 10*3/uL 03/07/2024 12:12 PM EDT [facility] Immature Grans # 0.07(H) 0.00 - 0.03 10*3/uL 03/07/2024 12:12 PM EDT [facility] Lymphocyte # 2.30 1.00 - 4.75 10*3/uL 03/07/2024 12:12 PM EDT [facility] Monocyte # 1.00 0.00 - 6.00 10*3/uL 03/07/2024 12:12 PM EDT [facility] Eosinophil # 0.60 0.00 - 0.80 10*3/uL 03/07/2024 12:12 PM EDT [facility] Basophil # 0.10 0.00 - 0.20 10*3/uL 03/07/2024 12:12 PM EDT [facility] nRBC % 0.0 0 - 0 /100 WBCs 03/07/2024 12:12 PM EDT [facility] nRBC # <0.01 0.00 - 0.13 10*3/uL 03/07/2024 12:12 PM EDT [facility] Blood Structure of peripheral vein / Unknown Venipuncture / Unknown 03/07/2024 11:28 AM EDT 03/07/2024 11:28 AM EDT us Valarie Piesron MD LAB BLOOD ORDERABLES Final Res ult [facility] [address] [place] [address] [place] [address], [place] [phone] * (ABNORMAL) Comprehensive Metabolic Panel (03/07/2024 11:28 AM EDT) NA 138 136 - 145 mmol/L 03/07/2024 12:30 PM EDT [facility] K 3.4(L) 3.5 - 5.1 mmol/L 03/07/2024 12:30 PM EDT [facility] Cl 104 98 - 109 mmol/L 03/07/2024 12:30 PM EDT [facility] CO2 23 23 - 32 mmol/L 03/07/2024 12:30 PM EDT [facility] Anion Gap 14 >=0 03/07/2024 12:30 PM EDT [facility] Glucose 135(H) 60 - 99 mg/dL 03/07/2024 12:30 PM EDT [facility] Creatinine 1.28(H) 0.50 - 1.12 mg/dL 03/07/2024 12:30 PM EDT [facility] Calcium 9.4 8.4 - 10.4 mg/dL 03/07/2024 12:30 PM EDT [facility] Total Protein 6.7 6.6 - 8.7 g/dL 03/07/2024 12:30 PM EDT [facility] Albumin 3.3(L) 3.5 - 5.0 g/dL 03/07/2024 12:30 PM EDT [facility] Bilirubin, Total 0.5 0.2 - 1.2 mg/dL 03/07/2024 12:30 PM EDT [facility] Alkaline Phosphatase 112 40 - 129 U/L 03/07/2024 12:30 PM EDT [facility] AST 31 0 - 40 U/L 03/07/2024 12:30 PM EDT [facility] ALT 36 <=41 U/L 03/07/2024 12:30 PM EDT [facility] BUN 35(H) 8 - 23 mg/dL 03/07/2024 12:30 PM EDT [facility] eGFR 55(L) >=60 mL/min/1. 73m2 03/07/2024 12:30 PM EDT [facility] Comment:The estimated glomer ular [...] Globulin, Total 3.4 2.1 - 4.2 g/dL 03/07/2024 12:30 PM EDT [facility] A/G Ratio 1.0(L) 1.5 - 3.0 03/07/2024 12:30 PM EDT [facility] Blood Structure of peripheral vein / Unknown Venipuncture / Unknown 03/07/2024 11:28 AM EDT 03/07/2024 11:28 AM EDT Valarie Pierson MD LAB BLOOD ORDERABLES Final Res ult Performing Organization Address City/State/[facility] Co de Phone Number [facility] [address] [place] [address] [address] [place] [address], documented in this encounter Visit Diagnoses Diagnosis [...] documented as of this encounter Care Teams Char House Supervisor Relationship Specialty Start Date End Date Uday Sheehan [address] [place] [address] dr Donna Thompson, ALEC [address] PCP - General Internal Medicine 03/27/24 documented as of this encounter
== END 2024-08-20 12:26 | disposition home or self-care (01) ==
LOC: HO.HCS 11:41
PROVIDERS: PCP Family Medicine Geriatric Medicine; Visit Provider Internal Medicine
DX: I48.0 Paroxysmal atrial fibrillation (principal); I25.10 Atherosclerotic heart disease of native coronary artery without angina pectoris; I35.0 Nonrheumatic aortic (valve) stenosis; I42.9 Cardiomyopathy, unspecified; I10 Essential (primary) hypertension; D64.9 Anemia, unspecified
CPT/HCPCS: 93010; 99214

== ENCOUNTER → 2024-08-20 11:41 | Outpatient (BNVA) | payer MEDICARE, SELFPAY | PROVIDERS: PCP Family Medicine Geriatric Medicine; Visit Provider Internal Medicine | DX: I48.0 Paroxysmal atrial fibrillation (principal); I25.10 Atherosclerotic heart disease of native coronary artery without angina pectoris; I35.0 Nonrheumatic aortic (valve) stenosis; I42.9 Cardiomyopathy, unspecified; I10 Essential (primary) hypertension; D64.9 Anemia, unspecified; R94.31 Abnormal electrocardiogram [ECG] [EKG]; I44.0 Atrioventricular block, first degree; I45.19 Other right bundle-branch block | CPT/HCPCS: 93005; 99212 ==

== ENCOUNTER 2024-08-29 13:43 | Inpatient (IN) | payer MEDICARE, SELFPAY ==
[2024-08-29] VITALS (9 sets, daily range): BP systolic 81–117; BP diastolic 32–52; PULSE 74–92; RESP 16–18; TEMP 36.1–37.4; O2SAT 94–100; BMI 28.1
--- NOTE | ~2024-08-29 | XR_ITS ---
CLINICAL HISTORY: weakness 1 view chest x-ray Comparison: CR/SR - XR CHEST 1V - 03/06/24 10:20 EDT Findings: No consolidation or effusion. Normal size heart. No acute fracture. IMPRESSION: 1. No acute findings. This document has been electronically signed by: Emilie Van MD on 08/29/2024 17:04:03
--- NOTE | ~2024-08-29 | CT_ITS ---
CLINICAL HISTORY: decubitus ulcer, ?abscess CT abdomen and pelvis without contrast Comparison: CT/PA/SR - CT ABDOMEN PELVIS WO IV CON - 06/30/24 14:38 EST Findings: The lung bases are clear. There is pelviectasis of the bilateral kidneys and mild infiltration of perinephric fat. The liver and adrenal glands are unremarkable. There is pancreatic volume loss. The spleen is borderline enlarged. There has been a prior cholecystectomy. There is colonic diverticulosis without gross evidence of diverticulitis. No bowel edema or dilatation. There is a gastrostomy tube within the distal body of the stomach. Pelvic contents unremarkable. Normal appendix. Evaluation of pelvic contents is limited by metallic artifact. Jamison catheter within the urinary bladder. Normal appendix. Large lytic lesion within the L3 vertebral body without change. No acute fracture. Prior bilateral hip replacement. Large decubitus ulcer left of midline. Surrounding soft tissue edema. Uncovering of a small portion of the cortex of the sacrum with mild localized destructive change. No soft tissue abscess. Mild presacral edema. IMPRESSION: 1. Severe cellulitis within the decubitus region associated with a large soft tissue ulcer and small focus of osteomyelitis of the underlying sacrum. 2. There is bilateral pelviectasis and perinephric fat infiltration. Correlate with urinalysis to exclude pyelonephritis. This document has been electronically signed by: Emilie Van MD on 08/29/2024 18:09:52
--- NOTE | 2024-08-29 15:18 | ED.GENADULT ---
HPI - General Adult General Chief complaint: General Medical Stated complaint: ABNORMAL LABS Time Seen by Provider: 08/29/24 15:13 Source: patient, EMS and RN notes reviewed Mode of arrival: EMS Limitations: no limitations History of Present Illness ED Provider: Dulce Ro PA-C HPI narrative: This is a 84-year-old male, with a past medical history of AF on Eliquis, HFrEF, HTN, CKD III, GALLITO, GERD, prolonged hospitalizations at [facility] 06/2024 for MDR UTI discharged on Meropenem, who presents emergency department via EMS due to concerns for ?low hemoglobin. He is coming in from [facility] it was unclear what his hemoglobin was as this was not written on the transfer paperwork. Patient has no current complaints other than chronic pain associated with his decubitus ulcer. He denies any weakness, lightheadedness, dizziness, chest pain, shortness breath, fevers, chills, abdominal pain, nausea, vomiting or diarrhea. No changes in urinary status. No changes in coloration to his urine. MD complaint: Abnormal labs Onset (ago): day(s) Relieving factors: none Exacerbating factors: none Associated symptoms: denies other symptoms Treatments prior to arrival: none Related Data Home Medications ?Medication ?Instructions ?Recorded ?Confirmed acetaminophen 325 mg tablet 975 mg PO Q6H PRN Pain/Fever 06/26/24 08/20/24 albuterol sulfate 2.5 mg/3 mL 2.5 mg inhalation Q4H PRN 06/26/24 08/20/24 (0.083 %) solution for nebulization Shortness Of Breath Or Wheezing amiodarone 200 mg tablet 200 mg PO DAILY 06/26/24 08/20/24 amlodipine 10 mg tablet 10 mg PO DAILY 06/26/24 08/20/24 ascorbic acid (vitamin C) 500 mg 500 mg PO BID 06/26/24 08/20/24 tablet bisacodyl 10 mg rectal suppository 10 mg IL DAILY PRN Constipation 06/26/24 08/20/24 docusate sodium 100 mg tablet 100 mg PO BID 06/26/24 08/20/24 famotidine 20 mg tablet 20 mg PO BEDTIME 06/26/24 08/20/24 ferrous sulfate 325 mg (65 mg 325 mg PO BID 06/26/24 08/20/24 iron) tablet gabapentin 100 mg capsule 100 mg PO BID 06/26/24 08/20/24 levothyroxine 100 mcg tablet 100 mcg PO DAILY@0600 06/26/24 08/20/24 magnesium hydroxide 400 mg/5 mL 30 ml PO Q72H PRN Constipation 06/26/24 08/20/24 oral suspension (Milk of Magnesia) nystatin 100,000 unit/gram topical 1 appl topical BID 06/26/24 08/20/24 powder polyvinyl alcohol 1.4 % eye drops 1 drp ophthalmic (eye) Q6H PRN Dry 06/26/24 08/20/24 Eyes sennosides 8.6 mg tablet (senna) 17.2 mg PO BEDTIME 06/26/24 08/20/24 thiamine HCl (vitamin B1) 100 mg 100 mg PO DAILY 06/26/24 08/20/24 tablet (Vitamin B-1) Lactobacillus acidoph-L.bulgaricus 1 tab PO BID 08/11/24 08/20/24 1 million cell tablet Lactobacillus acidophilus 2,000 mmu cells PO BID 08/11/24 08/20/24 (Acidophilus capsule) apixaban 2.5 mg tablet (Eliquis) 2.5 mg PO BID 08/11/24 08/20/24 collagenase clostridium histo. 250 1 appl topical DAILY 08/11/24 08/20/24 unit/gram topical ointment (Santyl) menthol 5 % topical patch (Cold 1 patch topical DAILY 08/11/24 08/20/24 and Hot (menthol)) multivitamin with minerals 1 tab PO DAILY 08/11/24 08/20/24 ondansetron HCl 4 mg tablet 4 mg PO Q8H PRN Nausea And Vomiting 08/11/24 08/20/24 sodium phosphates 19 gram-7 118 ml IL DAILY PRN Constipation 08/11/24 08/20/24 gram/118 mL enema (Fleet Enema) zinc acetate 50 mg (zinc) capsule 50 mg PO DAILY 08/11/24 08/20/24 melatonin 5 mg tablet 10 mg PO BEDTIME 08/20/24 08/20/24 Previous Rx's ?Medication ?Instructions ?Recorded polyethylene glycol 3350 17 gram 17 g PO DAILY #30 ea 03/06/24 oral powder packet doxazosin 2 mg tablet 4 mg PO BEDTIME #0 tabs 07/02/24 finasteride 5 mg tablet 5 mg PO DAILY #0 tabs 07/02/24 omeprazole 20 mg capsule,delayed 20 mg PO BID@0630,1630 #0 caps 07/02/24 release Allergies Allergy/AdvReac Type Severity Reaction Status Date / Time ibuprofen [IBUPROFEN] Allergy Intermediate HIVES Verified 08/29/24 15:22 hydromorphone [From DILAUDID] AdvReac Intermediate ILEUS Verified 08/10/24 23:34 procaine [From Novocain] AdvReac Intermediate has no Verified 08/10/24 23:34 numbing effect-states monocain works narcotic pain meds AdvReac Intermediate does not Uncoded 08/10/24 23:34 relieve pain per patient Review of Systems Review of Systems: Yes all other systems are reviewed and are negative Constitutional: Constitutional: Reports as per HPI [facility] Past Medical History Medical History Delirium Altered mental status Sepsis Atherosclerotic cardiovascular disease PAF (paroxysmal atrial fibrillation) NSTEMI (non-ST elevated myocardial infarction) Chronic renal disease, stage 3, moderately decreased glomerular filtration rate (GFR) between 30-59 mL/min/1.73 square meter Chest pain Heart failure Thyroid disease GERD (gastroesophageal reflux disease) On anticoagulant therapy COVID-19 vaccine series completed Symptomatic cholelithiasis HTN (hypertension) Hyperlipidemia Atrial fibrillation Sleep apnea Elevated PSA Facet arthropathy, cervical BPH loc w urin obs/LUTS Surgical History (Updated 08/24/24 @ 00:01 by Sravan Batista) S/P percutaneous endoscopic gastrostomy (PEG) tube placement Hx of tracheostomy S/P laparoscopic cholecystectomy Hx of cataract extraction History of total replacement of both hip joints Hx of cystoscopy H/O colonoscopy History of surgery Family History Family History Unknown No problems noted. Social History Social History Household Members: Unknown / Unable to assess Housing: Unknown / Unable to assess Are you a primary animal care specialist to a significant other at home: No Do you presently have visiting nurse or other home services: No Alcohol intake: never Comment: patient is chair, bedbound Patient Tobacco Use Status: Never used Tobacco Smoked in Last 30 Days: No Use of substances other than those prescribed or required for medical reasons: No Advance Directives: Yes Advance Directives on File: Yes Advance Directives Date on File: 03/07/24 service: No Current occupational status: retired Physical Exam ED Vital Signs: Vital Signs - 24 hr 08/29/24 15:20 08/29/24 15:25 08/29/24 16:07 Temperature 97.8 F Pulse Rate 90 90 Respiratory Rate 18 Blood Pressure 81/32 L 83/41 L 102/46 L Pulse Oximetry 99 Oxygen Delivery Method Room Air 08/29/24 16:58 08/29/24 17:24 08/29/24 17:51 Temperature Pulse Rate 90 90 Respiratory Rate 16 18 Blood Pressure 95/49 L 110/43 L 117/51 L Pulse Oximetry 100 98 Oxygen Delivery Method Room Air Room Air 08/29/24 18:35 Temperature 97 F Pulse Rate 92 Respiratory Rate 16 Blood Pressure 103/52 L Pulse Oximetry 97 Oxygen Delivery Method Room Air BMI result Body Mass Index 28.1 Const General: cooperative, comfortable and no acute distress Orientation/consciousness: patient oriented x3 Limitations: no limitations HENMT Head: Yes normal to inspection, Yes normocephalic and Yes atraumatic Ears: hearing grossly normal bilaterally General nose exam: Normal external nose present Face and sinus: Yes normal facial exam Mouth: Normal oral and palatal mucosa present, oropharynx normal and moist mucous membranes Throat: Yes posterior oropharynx normal Eyes General: appearance normal, both eyes and all related structures Eyelids: Yes eyelids normal Conjunctivae: conjunctivae normal Sclerae: sclerae normal Pupils: Equal, round and reactive pupils present EOM: EOMs intact bilaterally Neck Neck: Yes normal visual inspection, Yes full ROM and Yes no lymphadenopathy Lymphatic: no lymphadenopathy noted Chest Chest palpation & inspection: normal inspection of the chest Resp Effort & Inspection: normal respiratory effort and able to speak in complete sentences Auscultation: clear to auscultation bilaterally, no crackles, no rales, no rhonchi and no wheezes Cardio Rate: regular rate Rhythm: regular rhythm Heart sounds: S1 normal heart sound present and S2 normal heart sound present GI Other: Abdomen is soft, nontender, nondistended Sacral wound present, with packing noted. He does have mild surrounding erythema and warmth. No drainage. Exquisitely tender to palpation. Inspection: Yes normal to inspection Skin Other: Sacral ulcer with dressing in place, he has mild erythema and warmth noted surrounding ulcer, no obvious drainage noted however patient's ulcer significantly packed. Packing still in place. General skin exam: no rashes or lesions noted Trauma: no lacerations or abrasions Wounds: no wounds Neuro General: patient oriented x3 and moves all extremities Cranial nerves: Yes Equal, round and reactive pupils present Extrem Other: He does have 2+ pitting edema noted bilaterally, no calf tenderness. Strong DP pulse. General: Yes normal to inspection Right upper extremity: normal to inspection Left upper extremity: normal to inspection Right lower extremity: normal to inspection Left lower extremity: normal to inspection Course Reevaluation(s) Reevaluation #1: CT abdomen and pelvis revealing severe cellulitis within the decubitus region associated with a large soft tissue ulcer and small focus of osteomyelitis of underlying sacrum. There is also bilateral pelviectasis and perinephric fat infiltration. Correlate with urinalysis to exclude pyelonephritis. Urine does appear to be infected, with proteinuria, hematuria, large leuk esterases, wbc's, and 4+ bacteria. Patient is being covered with vanco and Zosyn at this time. He has no leukocytosis, lactic acid negative. Blood pressure improved to 117/51, he remains to be afebrile, nontoxic-appearing, not tachycardic. Given osteomyelitis and extensive cellulitis, and urinary tract infection, patient meets inpatient criteria for admission. Discussed case with hospitalist, transfer of care initiated. Time: 18:39 Medications Administered Discontinued Medications Generic Name Dose Route Start Last Admin Trade Name Leoq PRN Reason Stop Dose Admin Sodium Chloride 1,000 mls @ 500 mls/hr 08/29/24 15:46 08/29/24 18:16 Ns IVCONT 08/29/24 17:45 Infused .Q2H ONE Infusion Vancomycin HCl 2,000 mg in 500 mls @ 250 mls/hr 08/29/24 16:19 08/29/24 18:55 Vancomycin/Ns IV 08/29/24 18:18 Infused ONCE ONE Infusion Piperacillin Sod/Tazobactam 50 mls @ 100 mls/hr 08/29/24 16:19 08/29/24 17:27 Sod 3.375 gm/ Sodium Chloride IV 08/29/24 16:48 Infused ONCE ONE Infusion Acetaminophen 1,000 mg in 100 mls @ 400 mls/hr 08/29/24 16:59 08/29/24 17:27 Ofirmev IV 08/29/24 17:13 Infused ONCE ONE Infusion Oxycodone HCl 5 mg 08/29/24 17:29 08/29/24 17:50 Oxycodone Hcl Immed Release 5 Mg Tablet PO 08/29/24 17:30 5 mg ONCE ONE Administration Medical Decision Making Medical Decision Making [facility] Narrative: This is a 84-year-old male who presents emergency department via EMS with concerns for low hemoglobin. On arrival, blood pressure 81/32, he is afebrile, he is alert and oriented x4, he is well-appearing he has no current complaints other than the pain he has had an his decubitus region secondary to chronic wound. Patient initially reported to the emergency room approximately an hour and a half ago however given prolonged wait times, patient was sat with EMS until 1546, when I ordered 500 mL of fluids due to hypotension. He did not report with a reported hemoglobin hematocrit therefore we ordered labs, chemistry, lactic, cultures, UA, chest x-ray, EKG, type and screen. He is afebrile, he is well-appearing under no acute distress. 1407 - Blood pressure improved to 102/47. Patient remains to be asymptomatic. H&H returns, he does have normocytic anemia with an H&H of 7.8/24.9, similar to previous H&Hs, most recent H&H on 08/15/2024 of 7.6 and 24.8. Chemistry revealing an elevated BUN at 25, creatinine of 1.3, similar to previous, BNP 65. Albumin low at 2.1, similar to previous. Urine still pending. I assessed patient with my attending physician, Dr. Cortes, we had turned patient over, patient has decubitus ulcer wound, with slight erythema noted surrounding wound, thought to have skin infection secondary to wound, will obtain CT abdomen and pelvis, given kidney function, we ordered this without IV contrast. Will start on vanco and Zosyn for coverage. Awaiting urine and chest x-ray. We will continue to closely monitor. Lactic acid 1.2. Differential Diagnosis Differential Diagnoses: The differential diagnosis associated with the presentation includes Acute UTI, cellulitis, electrolyte derangement, decubitus ulcer Consult Healthcare Provider Management of the patient was discussed with: Hospitalist Lab Data [facility] Lab Attestation statement: I reviewed the patient's lab results. See [facility] for further details. 08/29/24 15:39 08/29/24 15:39 Labs: Lab Results 08/29/24 08/29/24 Range/Units 15:39 16:24 WBC 7.9 (4.8-10.8) X10*3/uL RBC 2.83 L (4.60-5.80) X10*6/uL Hgb 7.8 L (14.0-18.0) g/dl Hct 24.9 L (42.0-52.0) % MCV 88.0 (80.0-98.0) fL MCH 27.6 (27.0-33.0) pg MCHC 31.3 (31.0-36.0) g/dl RDW 17.8 H (11.0-16.0) % Plt Count 293 (160-400) X10*3/uL MPV 9.2 L (9.4-12.4) fL Immature Gran % (Auto) 0.6 H (0.0-0.4) % Neut % (Auto) 61.2 (45-73) % Lymph % (Auto) 22.6 (20-40) % Snyder % (Auto) 12.5 H (2-11) % Eos % (Auto) 2.7 (0-4) % Baso % (Auto) 0.4 (0-2) % Lymph # (Auto) 1.8 (1.2-4.9) X10*3/uL Snyder # (Auto) 1.0 (0.1-1.2) X10*3/uL Eos # (Auto) 0.2 (0.0-0.4) X10*3/uL Baso # (Auto) 0.0 (0.0-0.2) X10*3/uL Abs Immat Gran (auto) 0.05 H (0.00-0.03) X10*3/uL Absolute Neuts (auto) 4.8 (2.0-8.3) x10*3/uL Absolute Nucleated RBC 0.000 (0.0-0.012) X10*3/uL Nucleated RBC % (auto) 0.0 (0.0-0.2) /100WBC PT 15.9 H (10.9-12.4) SEC INR 1.4 H (0.9-1.1) APTT 39.7 H (26.0-36.8) SEC Sodium 139 (135-145) mmol/L Potassium 4.3 (3.3-5.1) mmol/L Chloride 105 (96-108) mmol/L Carbon Dioxide 25 (22-29) mmol/L Anion Gap 13 (12-20) BUN 25 H (9-16) mg/dL Creatinine 1.30 (0.5-1.4) mg/dL Estim Creat Clear Calc 50.3 Estimated GFR 53 Random Glucose 104 (60-115) mg/dL Lactic Acid 1.1 (0.5-2.0) mmol/L Calcium 8.6 (8.4-10.2) mg/dL Magnesium 2.0 (1.6-2.6) mg/dL Total Bilirubin 0.3 (0.0-1.0) mg/dL Direct Bilirubin 0.2 (0.0-0.5) mg/dL AST 24 (5-37) U/L ALT 6 (0-40) U/L Alkaline Phosphatase 103 (39-117) U/L Troponin I High Sens 3.6 (<3.5-35.0) ng/L B-Natriuretic Peptide 64 (<100) pg/mL Total Protein 6.8 (6.5-8.0) g/dL Albumin 2.1 L (3.5-5.0) g/dL Urine Color Dark Yellow Urine Appearance Turbid Urine pH >= 9.0 (5.0-9.0) Ur Specific Cascade 1.020 (1.005-1.025) Urine Protein 300 (3+) H (Neg-Trace) mg/dL Urine Glucose (UA) Negative (Negative) mg/dL Urine Ketones Negative (Negative) mg/dL Urine Blood Small (1+) H (Negative) Urine Nitrite Negative (Negative) Ur Leukocyte Esterase Large (3+) H (Negative) Urine RBC 0-2 (0-2) /HPF Urine WBC 21-50 (0-5) /HPF Ur Squamous Epith Cells 0-2 (0-2) /HPF Other Crystals Present Urine Bacteria 4+ (None Seen) Hyaline Casts 3-5 (0-2) /LPF Influenza Type A (PCR) NEGATIVE (Negative) Influenza Type B (PCR) NEGATIVE (Negative) RSV RNA Qual (PCR) NEGATIVE (Negative) SARS-CoV-2 RNA (RT-PCR) NEGATIVE (Negative) Blood Type O Positive Antibody Screen NEGATIVE Independent Interpretation I performed an independent interpretation of an: EKG Interpretation: EKG normal sinus rhythm with a first-degree AV block. No ST elevation. Ventricular rate 90 beats per minute, IL interval 264, QT QTC 326/398. Radiology Impression Discussion of test interpretation with radiology: I have reviewed the radiologist's reading. Radiologist Impression: CLINICAL HISTORY: weakness 1 view chest x-ray Comparison: CR/SR - XR CHEST 1V - 03/06/24 10:20 EDT Findings: No consolidation or effusion. Normal size heart. No acute fracture. IMPRESSION: 1. No acute findings. This document has been electronically signed by: Emilie Van MD on 08/29/2024 17:04:03 Dictated By: Emilie Van MD Signed By: <Electronically signed CLINICAL HISTORY: decubitus ulcer, ?abscess CT abdomen and pelvis without contrast Comparison: CT/IL/SR - CT ABDOMEN PELVIS WO IV CON - 06/30/24 14:38 EST Findings: The lung bases are clear. There is pelviectasis of the bilateral kidneys and mild infiltration of perinephric fat. The liver and adrenal glands are unremarkable. There is pancreatic volume loss. The spleen is borderline enlarged. There has been a prior cholecystectomy. There is colonic diverticulosis without gross evidence of diverticulitis. No bowel edema or dilatation. There is a gastrostomy tube within the distal body of the stomach. Pelvic contents unremarkable. Normal appendix. Evaluation of pelvic contents is limited by metallic artifact. Jamison catheter within the urinary bladder. Normal appendix. Large lytic lesion within the L3 vertebral body without change. No acute fracture. Prior bilateral hip replacement. Large decubitus ulcer left of midline. Surrounding soft tissue edema. Uncovering of a small portion of the cortex of the sacrum with mild localized destructive change. No soft tissue abscess. Mild presacral edema. IMPRESSION: 1. Severe cellulitis within the decubitus region associated with a large soft tissue ulcer and small focus of osteomyelitis of the underlying sacrum. 2. There is bilateral pelviectasis and perinephric fat infiltration. Correlate with urinalysis to exclude pyelonephritis. This document has been electronically signed by: Emilie Van MD on 08/29/2024 18:09:52 Dictated By: Emilie Van MD External Record Review External record reviewed: Inpatient record Critical Care Time Critical Care Time Critical Care Time: Yes Total Critical Care Time: 35 Attestation: I have personally provided critical care time exclusive of time spent on separately billable procedures. Time includes review of lab data, radiology results, discussion with consultants, and monitoring for potential decompensation. Intervention performed as documented. Discharge Plan Discharge Clinical Impression: Cellulitis, Osteomyelitis, Urinary tract infection, Decubitus ulcer of sacral region, stage 4 Patient Disposition: Admitted As Inpatient Prescriptions: No Action polyethylene glycol 3350 17 gram Powder In Packet 17 g PO DAILY Qty: 30 0RF Rx Instructions: Hold for loose stool. sennosides [senna] 8.6 mg Tablet 17.2 mg PO BEDTIME albuterol sulfate 2.5 mg /3 mL (0.083 %) Solution For Nebulization 2.5 mg INHALATION Q4H PRN (Reason: Shortness Of Breath Or Wheezing) polyvinyl alcohol 1.4 % Drops 1 drp OPHTHALMIC (EYE) Q6H PRN (Reason: Dry Eyes) thiamine HCl (vitamin B1) [Vitamin B-1] 100 mg Tablet 100 mg PO DAILY levothyroxine 100 mcg Tablet 100 mcg PO DAILY@0600 famotidine 20 mg Tablet 20 mg PO BEDTIME magnesium hydroxide [Milk of Magnesia] 400 mg/5 mL Suspension 30 ml PO Q72H PRN (Reason: Constipation) Rx Instructions: If no BM in 3 days. ascorbic acid (vitamin C) 500 mg Tablet 500 mg PO BID amlodipine 10 mg Tablet 10 mg PO DAILY bisacodyl 10 mg Suppository 10 mg IL DAILY PRN (Reason: Constipation) Rx Instructions: If MoM not effective. ferrous sulfate 325 mg (65 mg iron) Tablet 325 mg PO BID gabapentin 100 mg Capsule 100 mg PO BID docusate sodium 100 mg Tablet 100 mg PO BID acetaminophen 325 mg tablet 975 mg PO Q6H PRN (Reason: Pain/Fever) amiodarone 200 mg tablet 200 mg PO DAILY nystatin 100,000 unit/gram Powder 1 appl TOPICAL BID Rx Instructions: Apply to Groin. omeprazole 20 mg Capsule,Delayed Release(Dr/Ec) 20 mg PO BID@0630,1630 Qty: 0 0RF finasteride 5 mg Tablet 5 mg PO DAILY Qty: 0 0RF doxazosin 2 mg Tablet 4 mg PO BEDTIME Qty: 0 0RF Protocol: Hold for SBP< HOLD for SBP < : 90 melatonin 5 mg tablet 10 mg PO BEDTIME zinc acetate 50 mg (zinc) Capsule 50 mg PO DAILY Rx Instructions: 08/10/24 - 08/24/24 ondansetron HCl 4 mg Tablet 4 mg PO Q8H PRN (Reason: Nausea And Vomiting) Fleet Enema 19-7 gram/118 mL Enema 118 ml IL DAILY PRN (Reason: Constipation) Santyl 250 unit/gram Ointment 1 appl TOPICAL DAILY Rx Instructions: apply to sacrum multivitamin with minerals Tablet 1 tab PO DAILY Acidophilus Capsule 2,000 mmu cells PO BID Rx Instructions: for UTI until 08/14/24 Cold and Hot (menthol) 5 % Adhesive Patch,Medicated 1 patch TOPICAL DAILY Rx Instructions: apply to left knee Lactobacillus acidoph-L.bulgar 1 million cell Tablet 1 tab PO BID Eliquis 2.5 mg Tablet 2.5 mg PO BID Print Language: Kinyarwanda
--- NOTE | 2024-08-29 15:25 | ECG_ITS ---
Test Reason : hypotension Blood Pressure : */* mmHG Vent. Rate : 90 BPM Atrial Rate : 90 BPM P-R Int : 264 ms QRS Dur : 90 ms QT Int : 326 ms P-R-T Axes : 77 -31 237 degrees QTcB Int : 398 ms Sinus rhythm with 1st degree A-V block Left axis deviation Inferior infarct (cited on or before 19-Feb-2024) Cannot rule out Anterior infarct , age undetermined Abnormal ECG When compared with ECG of 11-Aug-2024 00:16, QT has shortened Referred By: Dulce Ro Electronically Signed By: JOSE ENRIQUEZ
[2024-08-29 15:47] LABS: MANUAL DIFF FLAG NO
[2024-08-29 15:49] LABS: Basophils Percent Auto 0.4 % (0-2); Eosinophils Absolute Auto 0.2 X10*3/uL (0.0-0.4); Eosinophils Percent Auto 2.7 % (0-4); Hematocrit 24.9 % (42.0-52.0); Hemoglobin 7.8 g/dl (14.0-18.0); Imm Gran Abs Auto 0.05 X10*3/uL (0.00-0.03); Imm Gran Pct Auto 0.6 % (0.0-0.4); Lymphocytes Absolute Auto 1.8 X10*3/uL (1.2-4.9); Lymphocytes Percent Auto 22.6 % (20-40); Mean Corpuscular HGB Conc 31.3 g/dl (31.0-36.0); Mean Corpuscular Hemoglobin 27.6 pg (27.0-33.0); Mean Platelet Volume 9.2 fL (9.4-12.4); Monocytes Percent Auto 12.5 % (2-11); Neutrophils Absolute Auto 4.8 x10*3/uL (2.0-8.3); Neutrophils Percent Auto 61.2 % (45-73); Platelet Count 293 X10*3/uL (160-400); Red Blood Count 2.83 X10*6/uL (4.60-5.80); Red Cell Distribution Width 17.8 % (11.0-16.0); White Blood Count 7.9 X10*3/uL (4.8-10.8)
[2024-08-29] MEDS: 0.9 % Sodium Chloride 1,000 ML 500 ML IVCONT (15:54)
[2024-08-29 15:57] LABS: INTERNATIONAL NORM RATIO 1.4 (0.9-1.1); Prothrombin Time 15.9 SEC (10.9-12.4)
[2024-08-29 16:00] LABS: Partial Thromboplastin Time 39.7 SEC (26.0-36.8)
[2024-08-29 16:03] LABS: Lactic Acid 1.1 mmol/L (0.5-2.0)
[2024-08-29 16:10] LABS: Alanine Aminotransferase 6 U/L (0-40); Albumin Level 2.1 g/dL (3.5-5.0); Anion Gap 13 (12-20); Aspartate Amino Transferase 24 U/L (5-37); Bilirubin Direct 0.2 mg/dL (0.0-0.5); Bilirubin Total 0.3 mg/dL (0.0-1.0); Blood Urea Nitrogen 25 mg/dL (9-16); Calcium 8.6 mg/dL (8.4-10.2); Carbon Dioxide 25 mmol/L (22-29); Chloride 105 mmol/L (96-108); Creatinine Clr Calc Pharmacy 50.3; Estimated Glomerular Filt Rate 53; Glucose Random 104 mg/dL (60-115); Potassium 4.3 mmol/L (3.3-5.1); Sodium 139 mmol/L (135-145); Total Protein 6.8 g/dL (6.5-8.0); Troponin-I High Sensitivity 3.6 ng/L (<3.5-35.0)
[2024-08-29 16:31] LABS: Appearance Urine Turbid; Color Urine Dark Yellow; Glucose Urine UA Negative (Negative); Leukocyte Esterase Urine Large (3+) (Negative); Nitrite Urine Negative (Negative); PH >= 9.0 (5.0-9.0); UMIC TRIGGER UACC YES; Urine Blood Small (1+) (Negative); Urine Ketones Negative (Negative); Urine Protein 300 (3+) mg/dL (Neg-Trace)
--- OUTSIDE RECORDS SUMMARY | 2024-08-29 16:36 | XMS_ITS | Encounter Summary ---
Author Organization [facility] Address [address] [place] [address] Care Team Providers Care Discharge Specialist Name Role Phone Uday Sheehan Primary Care Provider [phone] Encounter Details Date Type Department Care Team (Late st Contact Info) Description 04/24/2024 Lab Requisition [facility] Lab [address] [place] [address] Lidia Barry NP [address] [place] [address] Acute and chronic respiratory failure with hypoxia [...] - 10.8 10*3/uL 04/24/2024 10:46 AM EDT [facility] RBC 2.90(L) 4.70 - 6.10 10*6/uL 04/24/2024 10:46 AM EDT [facility] Hemoglobin 8.1(L) 13.7 - 16.5 g/dL 04/24/2024 10:46 AM EDT [facility] Hematocrit 25.3(L) 40.5 - 48.5 % 04/24/2024 10:46 AM EDT [facility] MCV 87.2 80.0 - 94.0 fL 04/24/2024 10:46 AM EDT [facility] MCH 27.9 26.0 - 34.0 pg 04/24/2024 10:46 AM EDT [facility] MCHC 32.0 31.0 - 36.0 g/dL 04/24/2024 10:46 AM EDT [facility] RDW 16.2(H) 12.0 - 15.0 % 04/24/2024 10:46 AM EDT [facility] RDW Standard Deviation 51.6(H) 35.1 - 43.9 fL 04/24/2024 10:46 AM EDT [facility] Platelets 160 140 - 440 10*3/uL 04/24/2024 10:46 AM EDT [facility] MPV 10.7 9.4 - 12.4 fL 04/24/2024 10:46 AM EDT [facility] Neutrophil % 51.2 50.0 - 75.0 % 04/24/2024 10:46 AM EDT [facility] Immature Grans % 0.2 0.0 - 0.9 % 04/24/2024 10:46 AM EDT [facility] Lymphocyte % 24.6 20.0 - 44.0 % 04/24/2024 10:46 AM EDT [facility] Monocyte % 18.4(H) 0.0 - 14.0 % 04/24/2024 10:46 AM EDT [facility] Eosinophil % 5.1(H) 0.0 - 5.0 % 04/24/2024 10:46 AM EDT [facility] Basophil % 0.5 0.0 - 2.0 % 04/24/2024 10:46 AM EDT [facility] Neutrophil # 2.80 1.80 - 7.70 10*3/uL 04/24/2024 10:46 AM EDT [facility] Immature Grans # <0.03 0.00 - 0.03 10*3/uL 04/24/2024 10:46 AM EDT [facility] Lymphocyte # 1.40 1.00 - 4.75 10*3/uL 04/24/2024 10:46 AM EDT [facility] Monocyte # 1.00 0.00 - 6.00 10*3/uL 04/24/2024 10:46 AM EDT [facility] Eosinophil # 0.30 0.00 - 0.80 10*3/uL 04/24/2024 10:46 AM EDT [facility] Basophil # <0.03 0.00 - 0.20 10*3/uL 04/24/2024 10:46 AM EDT [facility] nRBC % 0.0 0 - 0 /100 WBCs 04/24/2024 10:46 AM EDT [facility] nRBC # <0.01 0.00 - 0.13 10*3/uL 04/24/2024 10:46 AM EDT [facility] Blood Structure of peripheral vein / Unknown Venipuncture / Unknown 04/24/2024 8:53 AM EDT 04/24/2024 10:36 AM EDT Lidia Barry BOSOM PRESSER LAB BLOOD ORDERABLES Final R esult [facility] [address] [place] [address], * (ABNORMAL) Comprehensive Metabolic Panel (04/24/2024 8:53 AM EDT) NA 140 136 - 145 mmol/L 04/24/2024 11:40 AM EDT [facility] K 4.2 3.5 - 5.1 mmol/L 04/24/2024 11:40 AM EDT [facility] Cl 96(L) 98 - 109 mmol/L 04/24/2024 11:40 AM EDT [facility] CO2 33(H) 22 - 32 mmol/L 04/24/2024 11:40 AM EDT [facility] Anion Gap 15 >=0 04/24/2024 11:40 AM EDT [facility] Glucose 100(H) 60 - 99 mg/dL 04/24/2024 11:40 AM EDT [facility] Creatinine 1.60(H) 0.50 - 1.12 mg/dL 04/24/2024 11:40 AM EDT [facility] Calcium 9.6 8.4 - 10.4 mg/dL 04/24/2024 11:40 AM EDT [facility] Total Protein 5.9(L) 6.6 - 8.7 g/dL 04/24/2024 11:40 AM EDT [facility] Albumin 3.1(L) 3.5 - 5.0 g/dL 04/24/2024 11:40 AM EDT [facility] Bilirubin, Total 0.3 0.2 - 1.2 mg/dL 04/24/2024 11:40 AM EDT [facility] Alkaline Phosphatase 112 40 - 129 U/L 04/24/2024 11:40 AM EDT [facility] AST 32 0 - 40 U/L 04/24/2024 11:40 AM EDT [facility] ALT 33 <=41 U/L 04/24/2024 11:40 AM EDT [facility] BUN 53(H) 8 - 23 mg/dL 04/24/2024 11:40 AM EDT [facility] eGFR 42(L) >=60 mL/min/1. 73m2 04/24/2024 11:40 AM EDT [facility] Comment:The estimated glomer ular filtration [...] - 4.2 g/dL 04/24/2024 11:40 AM EDT [facility] A/G Ratio 1.1(L) 1.5 - 3.0 04/24/2024 11:40 AM EDT [facility] Blood Structure of peripheral vein / Unknown Venipuncture / Unknown 04/24/2024 8:53 AM EDT 04/24/2024 10:36 AM EDT [facility] LAB BLOOD ORDERABLES Final R esult [facility] [address] [place] [address], documented in this encounter Visit Diagnoses Diagnosis Acute and chronic respiratory failure with hypoxia (HCC) No diagnosis documented in this encounter Additional Health Concerns Infection Onset Date Last Indicated Resolved Time 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
--- OUTSIDE RECORDS SUMMARY | 2024-08-29 16:36 | XMS_ITS | Encounter Summary ---
Author Organization [facility] Address [address] [place] [address] Care Team Providers Care Compliance Program Manager Name Role Phone Uday Sheehan Primary Care Provider [phone] Encounter Details Date Type Department Care Team (Late st Contact Info) Description 05/14/2024 Lab Requisition [facility] Lab [address] [place] [address] Valarie Pierson MD [address] [place] [address] Acute and chronic respiratory failure with hypoxia [...] of this encounter Procedures * Due to [place] [employer] law, this organization might not be sharing negative HIV tests. Procedure Name Priority Date/Time Associated Diagnosis Comments BASIC METABOLIC PANEL Routine 05/14/2024 10:15 AM EST Acute and chronic respiratory failure with hypoxia (HCC) No diagnosis documented in this encounter Results * Due to [place] [employer] law, this organization might not be sharing negative HIV tests. * (ABNORMAL) Basic Metabolic Panel (05/14/2024 10:15 AM EST) NA 141 136 - 145 mmol/L 05/14/2024 10:44 AM EST [facility] K 3.7 3.5 - 5.1 mmol/L 05/14/2024 10:44 AM EST [facility] Cl 102 98 - 109 mmol/L 05/14/2024 10:44 AM EST [facility] CO2 28 22 - 32 mmol/L 05/14/2024 10:44 AM EST [facility] BUN 34(H) 8 - 23 mg/dL 05/14/2024 10:44 AM EST [facility] Creatinine 1.69(H) 0.50 - 1.12 mg/dL 05/14/2024 10:44 AM [facility] Glucose 100(H) 60 - 99 mg/dL 05/14/2024 10:44 AM EST [facility] Calcium 9.4 8.4 - 10.4 mg/dL 05/14/2024 10:44 AM [facility] Anion Gap 15 >=0 05/14/2024 10:44 AM [facility] eGFR 40(L) >=60 mL/min/1. 73m2 05/14/2024 10:44 AM EST [facility] Comment:The estimated glomer ular filtration [...] MD LAB BLOOD ORDERABLES Final Res ult 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
--- OUTSIDE RECORDS SUMMARY | 2024-08-29 16:36 | XMS_ITS | Encounter Summary ---
Author Organization [facility] Address [address] [place] [address] Care Team Providers Care Paper Machine Backtender Name Role Phone Uday Sheehan Primary Care Provider [phone] Encounter Details Date Type Department Care Team (Late st Contact Info) Description 03/20/2024 Lab Requisition [facility] [address] [place] [address] Lidia Barry NP [address] [place] [address] Acute and chronic respiratory failure with hypoxia [...] this encounter Procedures * Due to [place] [employer] law, this organization might not be sharing negative HIV tests. Procedure Name Priority Date/Time Associated Diagnosis Comments VANCOMYCIN, TROUGH Routine 03/20/2024 7: 13 AM EDT Acute and chronic respiratory failure with hypoxia (HCC) No diagnosis documented in this encounter Results * Due to [place] [employer] law, this organization might not be sharing negative HIV tests. * (ABNORMAL) Vancomycin, Trough (03/20/2024 7:13 AM EDT) Vancomycin Trough 21.5(H) 10.0 - 20.0 ug/mL 03/20/2024 7:42 AM EDT [facility] Blood Structure of peripheral vein / Unknown 03/20/2024 7:13 AM EDT 03/20/2024 7:13 AM EDT Lidia Barry WANT AD SUPERVISOR LAB BLOOD ORDERABLES Final R esult [facility] [address] [place] [address], documented in this encounter Visit Diagnoses Diagnosis [...] documented as of this encounter Care Teams Paper Machine Backtender Relationship Specialty Start Date End Date Uday Sheehan [address] [place] [address] [place] [address] PCP - General Internal Medicine 03/27/24 documented as of this encounter
--- OUTSIDE RECORDS SUMMARY | 2024-08-29 16:36 | XMS_ITS | Encounter Summary ---
Author Organization [facility] Address [address] [place] [address] Care Team Providers Care Investigative Assistant Name Role Phone Uday Sheehan Primary Care Provider Encounter Details Date Type Department Care Team (Late st Contact Info) Description 05/07/2024 Lab Requisition [facility] Department [address] [place] [address] Isabell Robert [address] [address] Acute and chronic respiratory failure with hypoxia [...] documented as of this encounter Care Teams Investigative Assistant Relationship Specialty Start Date End Date Uday Sheehan [address] [place] [address] [place] [address] PCP - General Internal Medicine 03/27/24 documented as of this encounter
--- OUTSIDE RECORDS SUMMARY | 2024-08-29 16:36 | XMS_ITS | Encounter Summary ---
Author Organization [facility] Address [address] [place] [address] Care Team Providers Care Pelt Salter Name Role Phone Uday Sheehan Primary Care Provider [phone] Encounter Details Date Type Department Care Team (Late st Contact Info) Description 03/25/2024 Lab Requisition [facility] Lab [address] [place] [address] Cecilio Bautista PA [address] [place] [address] Acute and chronic respiratory failure with hypoxia [...] this encounter Procedures * Due to [place] state law, this organization might not be [...] this encounter Results * Due to [place] state law, this organization might not be sharing negative HIV tests. * Blood Bank: Prepare Red Blood Cells (03/26/2024 9:24 AM EDT) Product Code [id number] [facility] Unit Number [id number] [facility] Unit ABO O [facility] Unit RH POS [facility] Crossmatch Compatible [facility] Dispense Status Presumed Transfuse [facility] Blood Expiration Date [facility] Blood Type Barcode 5100 [facility] Dispensed Volume 291 ML [facility] Product Code [id number] [facility] Unit Number [id number] [facility] Unit ABO O [facility] Unit RH POS [facility] Crossmatch Compatible [facility] Dispense Status Presumed Transfuse [facility] Blood Expiration Date [facility] Blood Type Barcode 5100 [facility] Dispensed Volume 377 ML [facility] 03/26/2024 9:24 AM EDT 03/25/2024 11:34 AM EDT us Cecilio ZHU BLOOD BANK PRODUCT ORDERABLE S Final Result [facility] [address] [place] [address], * (ABNORMAL) Respiratory Culture w/Gram Stain (03/25/2024 [...] AM EDT 03/25/2024 5:19 PM EDT Narrative [facility] - 03/28/2024 8:28 AM EDT Rare [...] MICROBIOLOGY - GENERAL O RDERABLES Final Result [facility] [address] [place] [phone], * (ABNORMAL) CBC Auto Differential (03/25/2024 5:50 AM EDT) WBC 8.5 4.8 - 10.8 10*3/uL 03/25/2024 5:56 PM EDT [facility] RBC 2.47(L) 4.70 - 6.10 10*6/uL 03/25/2024 5:56 PM EDT [facility] Hemoglobin 6.9(LL) 13.7 - 16.5 g/dL 03/25/2024 5:56 PM EDT [facility] Hematocrit 21.8(L) 40.5 - 48.5 % 03/25/2024 5:56 PM EDT [facility] MCV 88.3 80.0 - 94.0 fL 03/25/2024 5:56 PM EDT [facility] MCH 27.9 26.0 - 34.0 pg 03/25/2024 5:56 PM EDT [facility] MCHC 31.7 31.0 - 36.0 g/dL 03/25/2024 5:56 PM EDT [facility] RDW 15.6(H) 12.0 - 15.0 % 03/25/2024 5:56 PM EDT [facility] RDW Standard Deviation 50.4(H) 35.1 - 43.9 fL 03/25/2024 5:56 PM EDT [facility] Platelets 202 140 - 440 10*3/uL 03/25/2024 5:56 PM EDT [facility] MPV 10.0 9.4 - 12.4 fL 03/25/2024 5:56 PM EDT [facility] Neutrophil % 67.2 50.0 - 75.0 % 03/25/2024 5:56 PM EDT [facility] Immature Grans % 0.8 0.0 - 0.9 % 03/25/2024 5:56 PM EDT [facility] Lymphocyte % 14.3(L) 20.0 - 44.0 % 03/25/2024 5:56 PM EDT [facility] Monocyte % 12.9 0.0 - 14.0 % 03/25/2024 5:56 PM EDT [facility] Eosinophil % 4.3 0.0 - 5.0 % 03/25/2024 5:56 PM EDT [facility] Basophil % 0.5 0.0 - 2.0 % 03/25/2024 5:56 PM EDT [facility] Neutrophil # 5.69 1.80 - 7.70 10*3/uL 03/25/2024 5:56 PM EDT [facility] Immature Grans # 0.07(H) 0.00 - 0.03 10*3/uL 03/25/2024 5:56 PM EDT [facility] Lymphocyte # 1.20 1.00 - 4.75 10*3/uL 03/25/2024 5:56 PM EDT [facility] Monocyte # 1.10 0.00 - 6.00 10*3/uL 03/25/2024 5:56 PM EDT [facility] Eosinophil # 0.40 0.00 - 0.80 10*3/uL 03/25/2024 5:56 PM EDT [facility] Basophil # <0.03 0.00 - 0.20 10*3/uL 03/25/2024 5:56 PM EDT [facility] nRBC % 0.0 0 - 0 /100 WBCs 03/25/2024 5:56 PM EDT [facility] nRBC # <0.01 0.00 - 0.13 10*3/uL 03/25/2024 5:56 PM EDT [facility] Blood Structure of peripheral vein / Unknown Venipuncture / Unknown 03/25/2024 5:50 AM EDT 03/25/2024 5:19 PM EDT us Cecilio ZHU LAB BLOOD ORDERABLES Final R esult [facility] [address] [place] [id number], * Type and Screen (03/25/2024 5:50 AM EDT) ABO Blood Type O 03/25/2024 12:36 PM EDT [facility] RH Type Positive 03/25/2024 12:36 PM EDT [facility] Expiration Date/Time 2024-03-28 23:59 03/25/2024 12:36 PM EDT [facility] Antibody Screen Negative 03/25/2024 12:36 PM EDT [facility] Blood Structure of peripheral vein / Unknown Venipuncture / Unknown 03/25/2024 5:50 AM EDT 03/25/2024 11:34 AM EDT us Cecilio ZHU LAB BLOOD BANK TEST ORDERABL ES Edited Result - Final [facility] [address] [place] [address], [place] * (ABNORMAL) CBC Auto Differential (03/25/2024 5:50 AM EDT) WBC 8.3 4.8 - 10.8 10*3/uL 03/25/2024 1:27 PM EDT [facility] RBC 2.35(L) 4.70 - 6.10 10*6/uL 03/25/2024 1:27 PM EDT [facility] Hemoglobin 6.6(LL) 13.7 - 16.5 g/dL 03/25/2024 1:27 PM EDT [facility] Hematocrit 21.0(L) 40.5 - 48.5 % 03/25/2024 1:27 PM EDT [facility] MCV 89.4 80.0 - 94.0 fL 03/25/2024 1:27 PM EDT [facility] MCH 28.1 26.0 - 34.0 pg 03/25/2024 1:27 PM EDT [facility] MCHC 31.4 31.0 - 36.0 g/dL 03/25/2024 1:27 PM EDT [facility] RDW 16.1(H) 12.0 - 15.0 % 03/25/2024 1:27 PM EDT [facility] RDW Standard Deviation 51.3(H) 35.1 - 43.9 fL 03/25/2024 1:27 PM EDT [facility] Platelets 174 140 - 440 10*3/uL 03/25/2024 1:27 PM EDT [facility] MPV 10.9 9.4 - 12.4 fL 03/25/2024 1:27 PM EDT [facility] Neutrophil % 63.1 50.0 - 75.0 % 03/25/2024 1:27 PM EDT [facility] Immature Grans % 0.4 0.0 - 0.9 % 03/25/2024 1:27 PM EDT [facility] Lymphocyte % 17.4(L) 20.0 - 44.0 % 03/25/2024 1:27 PM EDT [facility] Monocyte % 13.8 0.0 - 14.0 % 03/25/2024 1:27 PM EDT [facility] Eosinophil % 4.8 0.0 - 5.0 % 03/25/2024 1:27 PM EDT [facility] Basophil % 0.5 0.0 - 2.0 % 03/25/2024 1:27 PM EDT [facility] Neutrophil # 5.23 1.80 - 7.70 10*3/uL 03/25/2024 1:27 PM EDT [facility] Immature Grans # 0.03 0.00 - 0.03 10*3/uL 03/25/2024 1:27 PM EDT [facility] Lymphocyte # 1.40 1.00 - 4.75 10*3/uL 03/25/2024 1:27 PM EDT [facility] Monocyte # 1.10 0.00 - 6.00 10*3/uL 03/25/2024 1:27 PM EDT [facility] Eosinophil # 0.40 0.00 - 0.80 10*3/uL 03/25/2024 1:27 PM EDT [facility] Basophil # <0.03 0.00 - 0.20 10*3/uL 03/25/2024 1:27 PM EDT [facility] nRBC % 0.0 0 - 0 /100 WBCs 03/25/2024 1:27 PM EDT [facility] nRBC # <0.01 0.00 - 0.13 10*3/uL 03/25/2024 1:27 PM EDT [facility] Blood Structure of peripheral vein / Unknown Venipuncture / Unknown 03/25/2024 5:50 AM EDT 03/25/2024 11:34 AM EDT Cecilio ZHU LAB BLOOD ORDERABLES Final R esult Performing Organization Address [facility]/ZIP Co de Phone Number [facility] [address] [address], [place] [phone] * Ammonia (03/25/2024 5:50 AM EDT) Ammonia 46 16 - 60 umol/L 03/25/2024 12:29 PM EDT [facility] Blood Structure of peripheral vein / Unknown Venipuncture / Unknown 03/25/2024 5:50 AM EDT 03/25/2024 11:34 AM EDT Cecilio ZHU LAB BLOOD ORDERABLES Final R esult Performing Organization Address [facility] Co de Phone Number [facility] [address] [address], [place] [phone] * (ABNORMAL) Comprehensive Metabolic Panel (03/25/2024 5:50 AM EDT) NA 139 136 - 145 mmol/L 03/25/2024 12:40 PM EDT [facility] K 4.5 3.5 - 5.1 mmol/L 03/25/2024 12:40 PM EDT [facility] Cl 100 98 - 109 mmol/L 03/25/2024 12:40 PM EDT [facility] CO2 29 23 - 32 mmol/L 03/25/2024 12:40 PM EDT [facility] Anion Gap 15 >=0 03/25/2024 12:40 PM EDT [facility] Glucose 101(H) 60 - 99 mg/dL 03/25/2024 12:40 PM EDT [facility] Creatinine 0.95 0.50 - 1.12 mg/dL 03/25/2024 12:40 PM EDT [facility] Calcium 8.8 8.4 - 10.4 mg/dL 03/25/2024 12:40 PM EDT [facility] Total Protein 5.9(L) 6.6 - 8.7 g/dL 03/25/2024 12:40 PM EDT [facility] Albumin 2.8(L) 3.5 - 5.0 g/dL 03/25/2024 12:40 PM EDT [facility] Bilirubin, Total 0.5 0.2 - 1.2 mg/dL 03/25/2024 12:40 PM EDT [facility] Alkaline Phosphatase 75 40 - 129 U/L 03/25/2024 12:40 PM EDT [facility] AST 34 0 - 40 U/L 03/25/2024 12:40 PM EDT [facility] ALT 17 <=41 U/L 03/25/2024 12:40 PM T [facility] BUN 15 8 - 23 mg/dL 03/25/2024 12:40 PM T [facility] eGFR 79 >=60 mL/min/1. 73m2 03/25/2024 12:40 PM T [facility] Comment:The estimated glomer ular filtration rate [...] - 4.2 g/dL 03/25/2024 12:40 PM T [facility] A/G Ratio 0.9(L) 1.5 - 3.0 03/25/2024 12:40 PM T [facility] Blood Structure of peripheral vein / Unknown Venipuncture / Unknown 03/25/2024 5:50 AM EDT 03/25/2024 11:34 AM EDT Cecilio ZHU LAB BLOOD ORDERABLES Final R esult [facility] [address] [place] [address], documented in this encounter Visit Diagnoses Diagnosis [...] documented as of this encounter Care Teams Pelt Salter Relationship Specialty Start Date End Date Uday Sheehan [address] [place] [address] [place] [address] PCP - General Internal Medicine 03/27/24 documented as of this encounter
--- OUTSIDE RECORDS SUMMARY | 2024-08-29 16:36 | XMS_ITS | Encounter Summary ---
Author Organization [facility] Address [address] [place] [address] Care Team Providers Care Plaster Whittler Name Role Phone Uday Sheehan Primary Care Provider [phone] Encounter Details Date Type Department Care Team (Late st Contact Info) Description 05/07/2024 Lab Requisition [facility] [address] [place] [address] Salo Whyte MD [address] [place] [address] Acute and chronic respiratory failure with hypoxia [...] of this encounter Procedures * Due to [place] state law, this organization might not be [...] in this encounter Results * Due to [place] state law, this organization might not be sharing negative HIV tests. * (ABNORMAL) Uric Acid (05/07/2024 8:30 AM EDT) [facility] Uric Acid 7.3(H) 3.4 - 7.0 mg/dL 05/07/2024 9:23 AM EDT [facility] Blood Structure of peripheral vein / Unknown Venipuncture / Unknown 05/07/2024 8:30 AM EDT 05/07/2024 8:30 AM EDT us Salo Whyte MD LAB BLOOD ORDERABLES Final Result Performing Organization Address City/[facility] Co de Phone Number [facility] [address] [place] [id number], [place] [phone] * (ABNORMAL) TSH (05/07/2024 8:30 AM EDT) [facility] TSH 9.930(H) 0.270 - 4.200 uIU/mL 05/07/2024 9:23 AM EDT [facility] Blood Structure of peripheral vein / Unknown Venipuncture / Unknown 05/07/2024 8:30 AM EDT 05/07/2024 8:30 AM EDT us Salo Whyte MD LAB BLOOD ORDERABLES Final Result Performing Organization Address City/[facility] Co de Phone Number [facility] [address] [place] [address], [place] [phone] * T4, Free (05/07/2024 8:30 AM EDT) [facility] Free T4 1.35 0.80 - 1.80 ng/dL 05/07/2024 9:23 AM EDT [facility] Comment: Females: (ng/dL) First Trimester [...] BLOOD ORDERABLES Final Result Performing Organization Address City/State/[facility] Co de Phone Number [facility] [address] [facility] [address] [place] [address], documented in this encounter Visit Diagnoses Diagnosis Acute and chronic respiratory failure with hypoxia (HCC) No diagnosis documented in this encounter Additional Health Concerns Infection Onset Date Last Indicated Resolved Time 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
--- OUTSIDE RECORDS SUMMARY | 2024-08-29 16:36 | XMS_ITS | Encounter Summary ---
Author Organization [facility], Address [address] [place] [address] Phone Care Team Providers Care Voice Intercept Technician Name Role Phone Uday Sheehan MD Primary Care Provider [phone] Encounter Details Date Type Department Care Team (Late st Contact Info) Description 04/20/2022 Documentation Only [facility], [address] [place] [address] Adi Jaeger MD [address] [facility] [place] [phone] Social History Tobacco Use Types Packs/Day Years [...] on filedocumented in this encounter Care Teams Voice Intercept Technician Relationship Specialty Start Date End Date Uday Sheehan MD [address] [place] PCP - General 05/14/19 documented as of this encounter
--- OUTSIDE RECORDS SUMMARY | 2024-08-29 16:36 | XMS_ITS | Encounter Summary ---
Author Organization [facility] Address [address] [place] [address] Care Team Providers Care Corporate Tax Preparer Name Role Phone Uday Sheehan Primary Care Provider [phone] Encounter Details Date Type Department Care Team (Late st Contact Info) Description 05/06/2024 Lab Requisition [facility] [address] [place] [address] Salo Whyte MD [address] [place] [address] Acute and chronic respiratory failure with hypoxia [...] of this encounter Procedures * Due to [place] state law, this organization might not be sharing negative HIV tests. Procedure Name Priority Date/Time Associated Diagnosis Comments CBC AUTO DIFFERENTIAL Routine 05/06/2024 10:36 AM EDT Acute and chronic respiratory failure with hypoxia (HCC) No diagnosis COMPREHENSIVE METABOLIC PANEL Routine 05/06/2024 10:36 AM EDT Acute and chronic respiratory failure with hypoxia (HCC) No diagnosis documented in this encounter Results * Due to [place] state law, this organization might not be sharing negative HIV tests. * (ABNORMAL) CBC Auto Differential (05/06/2024 10:36 AM EDT) WBC 5.8 4.8 - 10.8 10*3/uL 05/06/2024 11:12 AM EDT [facility] RBC 3.04(L) 4.70 - 6.10 10*6/uL 05/06/2024 11:12 AM EDT [facility] Hemoglobin 8.4(L) 13.7 - 16.5 g/dL 05/06/2024 11:12 AM EDT [facility] Hematocrit 26.9(L) 40.5 - 48.5 % 05/06/2024 11:12 AM EDT [facility] MCV 88.5 80.0 - 94.0 fL 05/06/2024 11:12 AM EDT [facility] MCH 27.6 26.0 - 34.0 pg 05/06/2024 11:12 AM EDT [facility] MCHC 31.2 31.0 - 36.0 g/dL 05/06/2024 11:12 AM EDT [facility] RDW 16.8(H) 12.0 - 15.0 % 05/06/2024 11:12 AM EDT [facility] RDW Standard Deviation 53.7(H) 35.1 - 43.9 fL 05/06/2024 11:12 AM EDT [facility] Platelets 179 140 - 440 10*3/uL 05/06/2024 11:12 AM EDT [facility] MPV 10.3 9.4 - 12.4 fL 05/06/2024 11:12 AM EDT [facility] Neutrophil % 55.7 50.0 - 75.0 % 05/06/2024 11:12 AM EDT [facility] Immature Grans % 0.3 0.0 - 0.9 % 05/06/2024 11:12 AM EDT [facility] Lymphocyte % 25.6 20.0 - 44.0 % 05/06/2024 11:12 AM EDT [facility] Monocyte % 12.2 0.0 - 14.0 % 05/06/2024 11:12 AM EDT [facility] Eosinophil % 5.7(H) 0.0 - 5.0 % 05/06/2024 11:12 AM EDT [facility] Basophil % 0.5 0.0 - 2.0 % 05/06/2024 11:12 AM EDT [facility] Neutrophil # 3.24 1.80 - 7.70 10*3/uL 05/06/2024 11:12 AM EDT [facility] Immature Grans # <0.03 0.00 - 0.03 10*3/uL 05/06/2024 11:12 AM EDT [facility] Lymphocyte # 1.50 1.00 - 4.75 10*3/uL 05/06/2024 11:12 AM EDT [facility] Monocyte # 0.70 0.00 - 6.00 10*3/uL 05/06/2024 11:12 AM EDT [facility] Eosinophil # 0.30 0.00 - 0.80 10*3/uL 05/06/2024 11:12 AM EDT [facility] Basophil # <0.03 0.00 - 0.20 10*3/uL 05/06/2024 11:12 AM EDT [facility] nRBC % 0.0 0 - 0 /100 WBCs 05/06/2024 11:12 AM EDT [facility] nRBC # <0.01 0.00 - 0.13 10*3/uL 05/06/2024 11:12 AM EDT [facility] Blood Structure of peripheral vein / Unknown Venipuncture / Unknown 05/06/2024 10:36 AM EDT 05/06/2024 10:36 AM EDT us Salo Lyubchik MD LAB BLOOD ORDERABLES Final Result [facility] [address] [place] [address], [place] [phone] * (ABNORMAL) Comprehensive Metabolic Panel (05/06/2024 10:36 AM EDT) NA 143 136 - 145 mmol/L 05/06/2024 11:24 AM EDT [facility] K 3.6 3.5 - 5.1 mmol/L 05/06/2024 11:24 AM EDT [facility] Cl 103 98 - 109 mmol/L 05/06/2024 11:24 AM EDT [facility] CO2 29 22 - 32 mmol/L 05/06/2024 11:24 AM EDT [facility] Anion Gap 15 >=0 05/06/2024 11:24 AM EDT [facility] Glucose 93 60 - 99 mg/dL 05/06/2024 11:24 AM EDT [facility] Creatinine 1.63(H) 0.50 - 1.12 mg/dL 05/06/2024 11:24 AM EDT [facility] Calcium 9.2 8.4 - 10.4 mg/dL 05/06/2024 11:24 AM EDT [facility] Total Protein 6.2(L) 6.6 - 8.7 g/dL 05/06/2024 11:24 AM EDT [facility] Albumin 3.0(L) 3.5 - 5.0 g/dL 05/06/2024 11:24 AM EDT [facility] Bilirubin, Total 0.3 0.2 - 1.2 mg/dL 05/06/2024 11:24 AM EDT [facility] Alkaline Phosphatase 102 40 - 129 U/L 05/06/2024 11:24 AM EDT [facility] AST 31 0 - 40 U/L 05/06/2024 11:24 AM EDT [facility] ALT 35 <=41 U/L 05/06/2024 11:24 AM EDT [facility] BUN 35(H) 8 - 23 mg/dL 05/06/2024 11:24 AM EDT [facility] eGFR 41(L) >=60 mL/min/1. 73m2 05/06/2024 11:24 AM EDT [facility] Comment:The estimated glomer ular filtration rate [...] - 4.2 g/dL 05/06/2024 11:24 AM EDT [facility] A/G Ratio 0.9(L) 1.5 - 3.0 05/06/2024 11:24 AM EDT [facility] Blood Structure of peripheral vein / Unknown Venipuncture / Unknown 05/06/2024 10:36 AM EDT 05/06/2024 10:36 AM EDT Salo Whyte MD LAB BLOOD ORDERABLES Final Result [facility] [address] [facility] [address] [place] [address], documented in this encounter Visit Diagnoses Diagnosis Acute and chronic respiratory failure with hypoxia (HCC) No diagnosis documented in this encounter Additional Health Concerns Infection Onset Date Last Indicated Resolved Time 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
--- OUTSIDE RECORDS SUMMARY | 2024-08-29 16:36 | XMS_ITS | Encounter Summary ---
Author Organization [facility] Address [address] [place] [address] Care Team Providers Care Lock Corner Machine Operator Name Role Phone Uday Sheehan Primary Care Provider [phone] Encounter Details Date Type Department Care Team (Late st Contact Info) Description 04/29/2024 Lab Requisition [facility] Lab [address] [place] [address] Lidia Barry NP [address] [place] [address] Acute and chronic respiratory failure with hypoxia [...] of this encounter Procedures * Due to [place] state law, this organization might not be sharing negative HIV tests. Procedure Name Priority Date/Time Associated Diagnosis Comments CBC AUTO DIFFERENTIAL Routine 04/29/2024 12:28 PM EDT Acute and chronic respiratory failure with hypoxia (HCC) No diagnosis COMPREHENSIVE METABOLIC PANEL Routine 04/29/2024 12:28 PM EDT Acute and chronic respiratory failure with hypoxia (HCC) No diagnosis documented in this encounter Results * Due to [place] state law, this organization might not be sharing negative HIV tests. * (ABNORMAL) CBC Auto Differential (04/29/2024 12:28 PM EDT) WBC 4.8 4.8 - 10.8 10*3/uL 04/29/2024 1:00 PM EDT [facility] RBC 2.81(L) 4.70 - 6.10 10*6/uL 04/29/2024 1:00 PM EDT [facility] Hemoglobin 7.7(L) 13.7 - 16.5 g/dL 04/29/2024 1:00 PM EDT [facility] Hematocrit 24.5(L) 40.5 - 48.5 % 04/29/2024 1:00 PM EDT [facility] MCV 87.2 80.0 - 94.0 fL 04/29/2024 1:00 PM EDT [facility] MCH 27.4 26.0 - 34.0 pg 04/29/2024 1:00 PM EDT [facility] MCHC 31.4 31.0 - 36.0 g/dL 04/29/2024 1:00 PM EDT [facility] RDW 15.7(H) 12.0 - 15.0 % 04/29/2024 1:00 PM EDT [facility] RDW Standard Deviation 50.7(H) 35.1 - 43.9 fL 04/29/2024 1:00 PM EDT [facility] Platelets 141 140 - 440 10*3/uL 04/29/2024 1:00 PM EDT [facility] MPV 11.0 9.4 - 12.4 fL 04/29/2024 1:00 PM EDT [facility] Neutrophil % 51.9 50.0 - 75.0 % 04/29/2024 1:00 PM EDT [facility] Immature Grans % 0.2 0.0 - 0.9 % 04/29/2024 1:00 PM EDT [facility] Lymphocyte % 26.7 20.0 - 44.0 % 04/29/2024 1:00 PM EDT [facility] Monocyte % 14.3(H) 0.0 - 14.0 % 04/29/2024 1:00 PM EDT [facility] Eosinophil % 6.3(H) 0.0 - 5.0 % 04/29/2024 1:00 PM EDT [facility] Basophil % 0.6 0.0 - 2.0 % 04/29/2024 1:00 PM EDT [facility] Neutrophil # 2.47 1.80 - 7.70 10*3/uL 04/29/2024 1:00 PM EDT [facility] Immature Grans # <0.03 0.00 - 0.03 10*3/uL 04/29/2024 1:00 PM EDT [facility] Lymphocyte # 1.30 1.00 - 4.75 10*3/uL 04/29/2024 1:00 PM EDT [facility] Monocyte # 0.70 0.00 - 6.00 10*3/uL 04/29/2024 1:00 PM EDT [facility] Eosinophil # 0.30 0.00 - 0.80 10*3/uL 04/29/2024 1:00 PM EDT [facility] Basophil # <0.03 0.00 - 0.20 10*3/uL 04/29/2024 1:00 PM EDT [facility] nRBC % 0.0 0 - 0 /100 WBCs 04/29/2024 1:00 PM EDT [facility] nRBC # <0.01 0.00 - 0.13 10*3/uL 04/29/2024 1:00 PM EDT [facility] Blood Structure of peripheral vein / Unknown Venipuncture / Unknown 04/29/2024 12:28 PM EDT 04/29/2024 12:29 PM EDT Lidia Barry SCIENTIFIC PHOTOGRAPHER LAB BLOOD ORDERABLES Final R esult [facility] [address] [place] [address], * (ABNORMAL) Comprehensive Metabolic Panel (04/29/2024 12:28 PM EDT) NA 140 136 - 145 mmol/L 04/29/2024 1:18 PM EDT [facility] K 3.8 3.5 - 5.1 mmol/L 04/29/2024 1:18 PM EDT [facility] Cl 99 98 - 109 mmol/L 04/29/2024 1:18 PM EDT [facility] CO2 32 22 - 32 mmol/L 04/29/2024 1:18 PM EDT [facility] Anion Gap 13 >=0 04/29/2024 1:18 PM EDT [facility] Glucose 92 60 - 99 mg/dL 04/29/2024 1:18 PM EDT [facility] Creatinine 1.44(H) 0.50 - 1.12 mg/dL 04/29/2024 1:18 PM EDT [facility] Calcium 9.5 8.4 - 10.4 mg/dL 04/29/2024 1:18 PM EDT [facility] Total Protein 6.1(L) 6.6 - 8.7 g/dL 04/29/2024 1:18 PM EDT [facility] Albumin 2.9(L) 3.5 - 5.0 g/dL 04/29/2024 1:18 PM EDT [facility] Bilirubin, Total 0.3 0.2 - 1.2 mg/dL 04/29/2024 1:18 PM EDT [facility] Alkaline Phosphatase 92 40 - 129 U/L 04/29/2024 1:18 PM EDT [facility] AST 43(H) 0 - 40 U/L 04/29/2024 1:18 PM EDT [facility] ALT 43(H) <=41 U/L 04/29/2024 1:18 PM EDT [facility] BUN 40(H) 8 - 23 mg/dL 04/29/2024 1:18 PM EDT [facility] eGFR 48(L) >=60 mL/min/1. 73m2 04/29/2024 1:18 PM EDT [facility] Comment:The estimated glomer ular filtration [...] - 4.2 g/dL 04/29/2024 1:18 PM EDT [facility] A/G Ratio 0.9(L) 1.5 - 3.0 04/29/2024 1:18 PM EDT [facility] Blood Structure of peripheral vein / Unknown Venipuncture / Unknown 04/29/2024 12:28 PM EDT 04/29/2024 12:29 PM EDT 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
--- OUTSIDE RECORDS SUMMARY | 2024-08-29 16:36 | XMS_ITS | Encounter Summary ---
Author Organization [facility] Address [address] [place] [address] Care Team Providers Care Mechanical Striper Name Role Phone Uday Sheehan MD Primary Care Provider [phone] Encounter Details Date Type Department Care Team (Late st Contact Info) Description 08/05/[address] [facility] [address] [facility] [place] [address] Tabby Bledsoe MD [address] [facility] [address] [place] [address] Urinary tract infection, site not specified Social [...] (ABNORMAL) Culture urine (08/03/2024 7:00 AM EST) Culture, Urine >100,000 CFU/mL Escherichia coli(A) [place] 08/07/2024 9:46 AM EST [facility] Comment: This is an edited [...] Escherichia coli Trimethoprim/Sulfamethoxazole [place] >=320 ug/ml: Resistant us Tabby Bledsoe MD LAB MICROBIOLOGY - GENER AL ORDERABLES Final Result [facility] [address] [place] [address], * (ABNORMAL) Urinalysis with reflex microscopic and culture (08/03/2024 7:00 AM EST) Pathologist [facility] Specific [place] Urine 1.014 1.003 - 1.030 LAB URINALYSIS - AUTOMATED METHOD 08/05/2024 1:39 PM [facility] pH, Urine 5.5 5.0 - 8.0 pH LAB URINALYSIS - AUTOMATED METHOD 08/05/2024 1:39 PM [facility] Leukocytes, Urine Large(A) Negative LAB URINALYSIS - AUTOMATED METHOD 08/05/2024 1:39 PM [facility] Nitrite, Urine Negative Negative LAB URINALYSIS - AUTOMATED METHOD 08/05/2024 1:39 PM [facility] Protein, Urine 30(A) <=Trace mg/dL LAB URINALYSIS - AUTOMATED METHOD 08/05/2024 1:39 PM [facility] Glucose, Urine Negative Negative mg/dL LAB URINALYSIS - AUTOMATED METHOD 08/05/2024 1:39 PM [facility] Ketones, Urine Negative Negative mg/dL LAB URINALYSIS - AUTOMATED METHOD 08/05/2024 1:39 PM [facility] Urobilinogen , Urine 0.2 0.2 - 1.0 mg/dL LAB URINALYSIS - AUTOMATED METHOD 08/05/2024 1:39 PM [facility] Bilirubin, Urine Negative Negative LAB URINALYSIS - AUTOMATED METHOD 08/05/2024 1:39 PM [facility] Blood, Urine Large(A) Negative LAB URINALYSIS - AUTOMATED METHOD 08/05/2024 1:39 PM [facility] RBC, Urine 271.0(H) 0 - 4 /HPF LAB URINALYSIS - AUTOMATED METHOD 08/05/2024 1:39 PM [facility] WBC, Urine 1,434.7(H) 0 - 4 /HPF LAB URINALYSIS - AUTOMATED METHOD 08/05/2024 1:39 PM [facility] Squamous Epithelial, Urine 41 0 - 60 /LPF LAB URINALYSIS - AUTOMATED METHOD 08/05/2024 1:39 PM [facility] Crystals, Urine MOD CALCIUM OXALATE /LPF LAB URINALYSIS - AUTOMATED METHOD 08/05/2024 1:39 PM [facility] Bacteria, Urine Many(A) Negative /HPF LAB URINALYSIS - AUTOMATED METHOD 08/05/2024 1:39 PM [facility] Hyaline Casts, Urine 8.1(H) 0 - 3 /LPF LAB URINALYSIS - AUTOMATED METHOD 08/05/2024 1:39 PM [facility] Urine Indwelling urinary catheter / Unknown Non-blood Collection / Unknown 08/03/2024 7:00 AM EST 08/05/2024 11:47 AM EST Tabby Bledsoe MD LAB URINE ORDERABLES Fin al Result Performing Organization Address [facility]/ZIP Co de Phone Number [facility] [address] [place] [address], [place] [phone] * Espinoza urine culture tube (08/03/2024 7:00 AM EST) Extra Tube Hold for add-ons. 08/05/2024 1:01 PM [facility] Comment:Auto resulted. Urine Indwelling urinary catheter / Unknown Non-blood Collection / Unknown 08/03/2024 7:00 AM EST 08/05/2024 11:47 AM EST Tabby Bledsoe MD LAB URINE ORDERABLES Fin al Result Performing Organization Address [facility]/ZIP Co de Phone Number [facility] [address] [place] [address], [place] [phone] documented in this encounter Visit Diagnoses Diagnosis Urinary tract infection, site not specified documented in this encounter Additional Health Concerns Infection Onset Date Last Indicated Resolved Time ESBL 06/22/2024 06/22/2024 documented as of this encounter Care Teams Mechanical Striper Relationship Specialty Start Date End Date Uday Sheehan MD [address] [place] [address] Dr [place], [place] PCP - General Presentation Team Member 12/19/16 documented as of this encounter
--- OUTSIDE RECORDS SUMMARY | 2024-08-29 16:36 | XMS_ITS | Encounter Summary ---
Author Organization [facility] Address [address] [place] [address] Care Team Providers Care Service Vehicle Operator Name Role Phone Uday Sheehan Primary Care Provider Encounter Details Date Type Department Care Team (Late st Contact Info) Description 05/18/2024 Lab Requisition [facility] [address] [place] [address] No diagnosis Social History Tobacco Use Types [...] documented as of this encounter Care Teams Service Vehicle Operator Relationship Specialty Start Date End Date Uday Sheehan [address] [place] [address] [place] [address] PCP - General Internal Medicine 03/27/24 documented as of this encounter
--- OUTSIDE RECORDS SUMMARY | 2024-08-29 16:36 | XMS_ITS | Encounter Summary ---
Author Organization [facility] Address [address] [place] [address] Care Team Providers Care [employer] Flatbed Truck Driver Name Role Phone Uday Sheehan Primary Care Provider Encounter Details Date Type Department Care Team (Late st Contact Info) Description 03/29/2024 Orders Only [facility] [address] [place] [address] Vasquez Quintanilla MD [address] [place] [address] Social History Tobacco Use Types Packs/Day Years [...] as of this encounter Care Teams [employer] Flatbed Truck Driver Relationship Specialty Start Date End Date Uday Sheehan [address] [place] [address] [place] [address] PCP - General Internal Medicine 03/27/24 documented as of this encounter
--- OUTSIDE RECORDS SUMMARY | 2024-08-29 16:36 | XMS_ITS | Encounter Summary ---
Author Organization [facility] Address [address] [place] [address] Care Team Providers Care Printing Bindery Assistant Name Role Phone Uday Sheehan Primary Care Provider [phone] Encounter Details Date Type Department Care Team (Late st Contact Info) Description 05/07/2024 Lab Requisition [facility] Department [address] [place] [id number] Robert Whyte [address] [address] Acute and chronic respiratory failure with hypoxia [...] of this encounter Procedures * Due to [place] state law, this organization might not be [...] in this encounter Results * Due to [place] state law, this organization might not be sharing negative HIV tests. * (ABNORMAL) Methicillin Resistant Staphylococcus aureus (MRSA) Culture Screen (05/07/2024 3:33 PM EDT) MRSA Culture Methicillin resistant Staphylococcus aureus (MRSA)(A) [place] [facility] 05/09/2024 9:10 AM EDT [facility] Swab Nasal structure / Unknown 05/07/2024 3:33 PM EDT 05/07/2024 4:19 PM EDT [facility] MICROBIOLOGY - GENERAL ORDER [place] Final Result Performing Organization Address City/State/[facility] Co de Phone Number [facility] [address] [place] [address] [address] [place] [address], * (ABNORMAL) Respiratory Culture w/Gram Stain (05/07/2024 3:33 PM EDT) Respiratory Culture Moderate Methicillin resistant Staphylococcus aureus (MRSA)(A) MINIMUM INHIBITORY CONCENTRATION ([place]) 05/10/2024 8:39 AM EDT [facility] Gram Stain Result <10 per LPF Epithelial Cells 05/10/2024 8:39 AM EDT [facility] Gram Stain Result >25 per LPF White Blood Cells Seen 05/10/2024 8:39 AM EDT [facility] Gram Stain Result Rare Gram Positive Cocci 05/10/2024 8:39 AM EDT [facility] Gram Stain Result Rare Pleomorphic gram positive rods 05/10/2024 8:39 AM EDT [facility] Sputum Sputum / Unknown 05/07/2024 3:33 PM EDT 05/07/2024 3:33 PM EDT Narrative [facility] - 05/10/2024 8:39 AM EDT [...] Inducible Clindamycin Resistance has not been found. 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
--- OUTSIDE RECORDS SUMMARY | 2024-08-29 16:36 | XMS_ITS | Encounter Summary ---
Author Organization [facility] Address [address] [place] [address] Care Team Providers Care Office Assistance Name Role Phone Uday Sheehan Primary Care Provider [phone] Encounter Details Date Type Department Care Team (Late st Contact Info) Description 05/18/2024 Lab Requisition [facility] [address] [place] [address] Valarie Pierson MD [address] [place] [id number] Acute and chronic respiratory failure with hypoxia [...] this encounter Procedures * Due to [place] [employer] law, this organization might not be sharing negative HIV tests. Procedure Name Priority Date/Time Associated Diagnosis Comments BASIC METABOLIC PANEL Routine 05/18/2024 6:18 AM EST Acute and chronic respiratory failure with hypoxia (HCC) No diagnosis documented in this encounter Results * Due to [place] [employer] law, this organization might not be sharing negative HIV tests. * (ABNORMAL) Basic Metabolic Panel (05/18/2024 6:18 AM EST) NA 143 136 - 145 mmol/L 05/18/2024 10:44 AM EST [facility] K 3.9 3.5 - 5.1 mmol/L 05/18/2024 10:44 AM EST [facility] Cl 104 98 - 109 mmol/L 05/18/2024 10:44 AM EST [facility] CO2 29 22 - 32 mmol/L 05/18/2024 10:44 AM EST [facility] BUN 33(H) 8 - 23 mg/dL 05/18/2024 10:44 AM EST [facility] Creatinine 1.70(H) 0.50 - 1.12 mg/dL 05/18/2024 10:44 AM [facility] Glucose 102(H) 60 - 99 mg/dL 05/18/2024 10:44 AM EST [facility] Calcium 9.3 8.4 - 10.4 mg/dL 05/18/2024 10:44 AM EST [facility] Anion Gap 14 >=0 05/18/2024 10:44 AM EST [facility] eGFR 39(L) >=60 mL/min/1. 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
--- OUTSIDE RECORDS SUMMARY | 2024-08-29 16:36 | XMS_ITS | Encounter Summary ---
Author Organization [facility] Address [address] [place] [address] Care Team Providers Care Sports Official Name Role Phone Uday Sheehan MD Primary Care Provider [phone] Encounter Details Date Type Department Care Team (Late st Contact Info) Description 08/03/2024 Lab Requisition [facility] [address] [place] [address] Tabby Bledsoe MD [address] [address] Bacteremia Social History Tobacco Use Types Packs/Day [...] LAB CHEMISTRY METHOD 08/05/2024 1:55 PM EST [facility] Potassium 3.6 3.5 - 5.5 mmol/L LAB CHEMISTRY METHOD 08/05/2024 1:55 PM [facility] Chloride 106 96 - 110 mmol/L LAB CHEMISTRY METHOD 08/05/2024 1:55 PM [facility] CO2 25 21 - 32 mmol/L LAB CHEMISTRY METHOD 08/05/2024 1:55 PM [facility] Anion Gap 10 3 - 11 LAB CHEMISTRY METHOD 08/05/2024 1:55 PM [facility] Glucose 70 70 - 100 mg/dL LAB CHEMISTRY METHOD 08/05/2024 1:55 PM [facility] BUN 31(H) 5 - 25 mg/dL LAB CHEMISTRY METHOD 08/05/2024 1:55 PM [facility] Creatinine 2.20(H) 0.70 - 1.30 mg/dL LAB CHEMISTRY METHOD 08/05/2024 1:55 PM [facility] eGFR 29(L) >=60 mL/min/1. 73m2 LAB CHEMISTRY METHOD 08/05/2024 1:55 PM [facility] Comment:Calculation based on the??Chronic Kidney Disease Epidemiology Collaboration (CKD-EPI) equation refit??without adjustment for race. BUN/Creatinine Ratio 14.1 LAB CHEMISTRY METHOD 08/05/2024 1:55 PM [facility] Calcium 8.3(L) 8.5 - 10.5 mg/dL LAB CHEMISTRY METHOD 08/05/2024 1:55 PM [facility] AST (SGOT) 30 10 - 42 unit/L LAB CHEMISTRY METHOD 08/05/2024 1:55 PM [facility] ALT (SGPT) 17 10 - 60 unit/L LAB CHEMISTRY METHOD 08/05/2024 1:55 PM [facility] Alkaline Phosphatase 103 42 - 121 unit/L LAB CHEMISTRY METHOD 08/05/2024 1:55 PM [facility] Total Protein 5.4(L) 6.0 - 8.0 g/dL LAB CHEMISTRY METHOD 08/05/2024 1:55 PM EST [facility] Albumin 1.4(L) 3.2 - 5.0 g/dL LAB CHEMISTRY METHOD 08/05/2024 1:55 PM [facility] Total Bilirubin 0.3 0.0 - 1.4 mg/dL LAB CHEMISTRY METHOD 08/05/2024 1:55 PM [facility] Blood Venous blood specimen / Unknown Venipuncture / Unknown 08/05/2024 7:45 AM EST 08/05/2024 12:00 PM EST us Tabby Bledsoe MD LAB BLOOD ORDERABLES Fin al Result [facility] [address] [place] [address], [place] [phone] * (ABNORMAL) Complete blood count (08/05/2024 7:45 AM EST) WBC 11.9(H) 4.8 - 10.8 K/mcL LAB HEMETOLOGY METHOD 08/05/2024 1:29 PM [facility] RBC 2.50(L) 4.50 - 5.50 M/mcL LAB HEMETOLOGY METHOD 08/05/2024 1:29 PM [facility] Hemoglobin 6.5(L) 13.5 - 17.5 g/dL LAB HEMETOLOGY METHOD 08/05/2024 1:29 PM [facility] Hematocrit 22.0(L) 42.0 - 54.0 % LAB HEMETOLOGY METHOD 08/05/2024 1:29 PM [facility] MCV 87.6 79.0 - 98.0 FL LAB HEMETOLOGY METHOD 08/05/2024 1:29 PM [facility] MCH 25.9(L) 27.0 - 32.0 pcg LAB HEMETOLOGY METHOD 08/05/2024 1:29 PM [facility] MCHC 29.5(L) 32.0 - 37.0 g/dL LAB HEMETOLOGY METHOD 08/05/2024 1:29 PM EST [facility] RDW 19.6(H) 11.0 - 15.0 % LAB HEMETOLOGY METHOD 08/05/2024 1:29 PM [facility] Platelets 268 130 - 400 K/mcL LAB HEMETOLOGY METHOD 08/05/2024 1:29 PM [facility] MPV 9.0 7.0 - 11.0 FL LAB HEMETOLOGY METHOD 08/05/2024 1:29 PM [facility] NRBC 0.0 <1.0 % LAB HEMETOLOGY METHOD 08/05/2024 1:29 PM [facility] NRBC Absolute 0.00 <0.10 K/mcL LAB HEMETOLOGY METHOD 08/05/2024 1:29 PM [facility] Blood Venous blood specimen / Unknown Venipuncture / Unknown 08/05/2024 7:45 AM EST 08/05/2024 12:00 PM EST us Tabby Bledsoe MD LAB BLOOD ORDERABLES Fin al Result [facility] [address] [place] [address], documented in this encounter Visit Diagnoses Diagnosis Bacteremia documented in this encounter Additional Health Concerns Infection Onset Date Last Indicated Resolved Time ESBL 06/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
--- OUTSIDE RECORDS SUMMARY | 2024-08-29 16:36 | XMS_ITS | Encounter Summary ---
Author Organization [facility] Address [address] [place] [address] Care Team Providers Care Blast Furnace Supervisor Name Role Phone Uday Sheehan Primary Care Provider [phone] Encounter Details Date Type Department Care Team (Late st Contact Info) Description 05/13/2024 Lab Requisition [facility] [address] [place] [address] Salo Whyte MD [address] [place] [address] Acute and chronic respiratory failure with hypoxia [...] - 10.8 10*3/uL 05/13/2024 10:06 AM EST [facility] RBC 3.01(L) 4.70 - 6.10 10*6/uL 05/13/2024 10:06 AM [facility] Hemoglobin 8.3(L) 13.7 - 16.5 g/dL 05/13/2024 10:06 AM [facility] Hematocrit 26.0(L) 40.5 - 48.5 % 05/13/2024 10:06 AM [facility] MCV 86.4 80.0 - 94.0 fL 05/13/2024 10:06 AM [facility] MCH 27.6 26.0 - 34.0 pg 05/13/2024 10:06 AM [facility] MCHC 31.9 31.0 - 36.0 g/dL 05/13/2024 10:06 AM [facility] RDW 16.8(H) 12.0 - 15.0 % 05/13/2024 10:06 AM [facility] RDW Standard Deviation 53.1(H) 35.1 - 43.9 fL 05/13/2024 10:06 AM [facility] Platelets 143 140 - 440 10*3/uL 05/13/2024 10:06 AM [facility] MPV 10.6 9.4 - 12.4 fL 05/13/2024 10:06 AM [facility] Neutrophil % 57.3 50.0 - 75.0 % 05/13/2024 10:06 AM [facility] Immature Grans % 0.2 0.0 - 0.9 % 05/13/2024 10:06 AM [facility] Lymphocyte % 26.4 20.0 - 44.0 % 05/13/2024 10:06 AM EST [facility] Monocyte % 11.2 0.0 - 14.0 % 05/13/2024 10:06 AM EST [facility] Eosinophil % 4.6 0.0 - 5.0 % 05/13/2024 10:06 AM EST [facility] Basophil % 0.3 0.0 - 2.0 % 05/13/2024 10:06 AM EST [facility] Neutrophil # 3.36 1.80 - 7.70 10*3/uL 05/13/2024 10:06 AM EST [facility] Immature Grans # <0.03 0.00 - 0.03 10*3/uL 05/13/2024 10:06 AM EST [facility] Lymphocyte # 1.60 1.00 - 4.75 10*3/uL 05/13/2024 10:06 AM EST [facility] Monocyte # 0.70 0.00 - 6.00 10*3/uL 05/13/2024 10:06 AM EST [facility] Eosinophil # 0.30 0.00 - 0.80 10*3/uL 05/13/2024 10:06 AM EST [facility] Basophil # <0.03 0.00 - 0.20 10*3/uL 05/13/2024 10:06 AM EST [facility] nRBC % 0.0 0 - 0 /100 WBCs 05/13/2024 10:06 AM EST [facility] nRBC # <0.01 0.00 - 0.13 10*3/uL 05/13/2024 10:06 AM EST [facility] Blood Structure of peripheral vein / Unknown Venipuncture / Unknown 05/13/2024 9:32 AM EST 05/13/2024 9:32 AM EST us Salo Whyte MD LAB BLOOD ORDERABLES Final Result Performing Organization Address City/State/[facility] Co de Phone Number [facility] [address] [place] [address] [address] [place] [address], [place] [phone] * (ABNORMAL) Comprehensive Metabolic Panel (05/13/2024 9:32 AM EST) NA 138 136 - 145 mmol/L 05/13/2024 10:36 AM EST [facility] K 3.6 3.5 - 5.1 mmol/L 05/13/2024 10:36 AM EST [facility] Cl 99 98 - 109 mmol/L 05/13/2024 10:36 AM EST [facility] CO2 30 22 - 32 mmol/L 05/13/2024 10:36 AM EST [facility] Anion Gap 13 >=0 05/13/2024 10:36 AM [facility] Glucose 118(H) 60 - 99 mg/dL 05/13/2024 10:36 AM [facility] Creatinine 1.73(H) 0.50 - 1.12 mg/dL 05/13/2024 10:36 AM EST [facility] Calcium 9.5 8.4 - 10.4 mg/dL 05/13/2024 10:36 AM [facility] Total Protein 6.1(L) 6.6 - 8.7 g/dL 05/13/2024 10:36 AM [facility] Albumin 3.0(L) 3.5 - 5.0 g/dL 05/13/2024 10:36 AM [facility] Bilirubin, Total 0.4 0.2 - 1.2 mg/dL 05/13/2024 10:36 AM EST [facility] Alkaline Phosphatase 102 40 - 129 U/L 05/13/2024 10:36 AM EST [facility] AST 18 0 - 40 U/L 05/13/2024 10:36 AM [facility] ALT 17 <=41 U/L 05/13/2024 10:36 AM [facility] BUN 36(H) 8 - 23 mg/dL 05/13/2024 10:36 AM EST [facility] eGFR 38(L) >=60 mL/min/1. 73m2 05/13/2024 10:36 AM EST [facility] Comment:The estimated glomer ular filtration rate [...] - 4.2 g/dL 05/13/2024 10:36 AM EST [facility] A/G Ratio 1.0(L) 1.5 - 3.0 05/13/2024 10:36 AM EST [facility] Blood Structure of peripheral vein / Unknown Venipuncture / Unknown 05/13/2024 9:32 AM EST 05/13/2024 9:32 AM EST Salo Whyte MD LAB BLOOD ORDERABLES Final Result Performing Organization Address City/State/[facility] Co de Phone Number [facility] [address] [facility] [address] [place] [address], documented in this encounter Visit Diagnoses Diagnosis Acute and chronic respiratory failure with hypoxia (HCC) No diagnosis documented in this encounter Additional Health Concerns Infection Onset Date Last Indicated Resolved Time 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
--- OUTSIDE RECORDS SUMMARY | 2024-08-29 16:36 | XMS_ITS | Encounter Summary ---
Author Organization [facility] Address [address] [place] [address] Care Team Providers Care Enterprise Services Manager Name Role Phone Uday Sheehan Primary Care Provider [phone] Encounter Details Date Type Department Care Team (Late st Contact Info) Description 04/26/2024 Lab Requisition [facility] [address] [place] [address] Ross Buchanan MD [address] [place] [address] Acute and chronic respiratory failure with hypoxia [...] this encounter Procedures * Due to [place] state law, this organization might not be sharing negative HIV tests. Procedure Name Priority Date/Time Associated Diagnosis Comments MAGNESIUM Routine 04/26/2024 10:14 AM EDT Acute and chronic respiratory failure with hypoxia (HCC) No diagnosis COMPREHENSIVE METABOLIC PANEL Routine 04/26/2024 10:14 AM EDT Acute and chronic respiratory failure with hypoxia (HCC) No diagnosis documented in this encounter Results * Due to [place] state law, this organization might not be sharing negative HIV tests. * Magnesium (04/26/2024 10:14 AM EDT) MG 2.2 1.5 - 2.5 mg/dL 04/26/2024 10:52 AM EDT [facility] Blood Structure of peripheral vein / Unknown Venipuncture / Unknown 04/26/2024 10:14 AM EDT 04/26/2024 10:14 AM EDT us Ross Buchanan MD LAB BLOOD ORDERABLES Final R esult [facility] [address] [facility] [address] [place] [address], * (ABNORMAL) Comprehensive Metabolic Panel (04/26/2024 10:14 AM EDT) NA 140 136 - 145 mmol/L 04/26/2024 10:52 AM EDT [facility] K 3.8 3.5 - 5.1 mmol/L 04/26/2024 10:52 AM EDT [facility] Cl 98 98 - 109 mmol/L 04/26/2024 10:52 AM EDT [facility] CO2 34(H) 22 - 32 mmol/L 04/26/2024 10:52 AM EDT [facility] Anion Gap 12 >=0 04/26/2024 10:52 AM EDT [facility] Glucose 94 60 - 99 mg/dL 04/26/2024 10:52 AM EDT [facility] Creatinine 1.50(H) 0.50 - 1.12 mg/dL 04/26/2024 10:52 AM EDT [facility] Calcium 9.3 8.4 - 10.4 mg/dL 04/26/2024 10:52 AM EDT [facility] Total Protein 6.0(L) 6.6 - 8.7 g/dL 04/26/2024 10:52 AM EDT [facility] Albumin 2.9(L) 3.5 - 5.0 g/dL 04/26/2024 10:52 AM T [facility] Bilirubin, Total 0.3 0.2 - 1.2 mg/dL 04/26/2024 10:52 AM EDT [facility] Alkaline Phosphatase 113 40 - 129 U/L 04/26/2024 10:52 AM EDT [facility] AST 44(H) 0 - 40 U/L 04/26/2024 10:52 AM EDT [facility] ALT 40 <=41 U/L 04/26/2024 10:52 AM T [facility] BUN 51(H) 8 - 23 mg/dL 04/26/2024 10:52 AM [facility] eGFR 46(L) >=60 mL/min/1. 73m2 04/26/2024 10:52 AM T [facility] Comment:The estimated glomer ular [...] - 4.2 g/dL 04/26/2024 10:52 AM T [facility] A/G Ratio 0.9(L) 1.5 - 3.0 04/26/2024 10:52 AM [facility] Blood Structure of peripheral vein / Unknown Venipuncture / Unknown 04/26/2024 10:14 AM EDT 04/26/2024 10:14 AM EDT us Ross Buchanan MD LAB BLOOD ORDERABLES Final R esult [facility] [address] [place] [address], documented in this encounter Visit Diagnoses Diagnosis Acute and chronic respiratory failure with hypoxia (HCC) No diagnosis documented in this encounter Additional Health Concerns Infection Onset Date Last Indicated Resolved Time 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
--- OUTSIDE RECORDS SUMMARY | 2024-08-29 16:36 | XMS_ITS | Encounter Summary ---
Author Organization [facility] Address [address] [place] [address] Care Team Providers Care Drafter Mechanical Name Role Phone Uday Sheehan Primary Care Provider [phone] Encounter Details Date Type Department Care Team (Late st Contact Info) Description 03/27/2024 Lab Requisition [facility] [address] [place] [address] Lidia Barry, CB [address] [place] [address] Acute and chronic respiratory failure with hypoxia [...] - 75 % 03/27/2024 9:04 AM EDT [facility] Lymphocyte %, Manual 33 33 - 54 % 03/27/2024 9:04 AM EDT [facility] Monocyte %, Manual 10 0 - 14 % 03/27/2024 9:04 AM EDT [facility] Eosinophil %, Manual 3 0 - 5 % 03/27/2024 9:04 AM EDT [facility] Basophil %, Manual 0 0 - 2 % 03/27/2024 9:04 AM EDT [facility] Plasma Cells % 1(H) 0 % 03/27/2024 9:04 AM EDT [facility] Total Neutrophil #, Manual 4.13 1.80 - 7.70 10*3/uL 03/27/2024 9:04 AM EDT [facility] Total Lymph #, Manual 2.57 1.00 - 4.75 10*3/uL 03/27/2024 9:04 AM EDT [facility] Monocyte #, Manual 0.78 0.00 - 6.00 10*3/uL 03/27/2024 9:04 AM EDT [facility] Eosinophil #, Manual 0.23 0.00 - 0.80 10*3/uL 03/27/2024 9:04 AM EDT [facility] Basophil #, Manual 0.00 0.00 - 0.20 10*3/uL 03/27/2024 9:04 AM EDT [facility] Plasma Cell # 0.08(H) 0.00 10*3/uL 9:04 AM EDT [facility] Platelet Estimate Adequate Adequate 03/27/2024 9:04 AM EDT [facility] Clumped Platelets Present(A) Not Present 03/27/2024 9:04 AM EDT [facility] RBC Morphology Present(A) Normal, No clinically significant RBC morphology present (ICSH guidelines, 2015). 03/27/2024 9:04 AM EDT [facility] Polychromasia 1+(A) Not Present 03/27/2024 9:04 AM EDT [facility] Ovalocytes 1+(A) Not Present 03/27/2024 9:04 AM EDT [facility] [place] Cells 1+(A) Not Present 03/27/2024 9:04 AM EDT [facility] Total Cells Counted 116 03/27/2024 9:04 AM EDT [facility] Blood Structure of peripheral vein / Unknown Venipuncture / Unknown 03/27/2024 8:19 AM EDT 03/27/2024 8:19 AM EDT us Lidia Barry [employer] LAB BLOOD ORDERABLES Final R esult Performing Organization Address City/State/[facility] Co de Phone Number [facility] [address] [place] [address] [address] [place] [address], * (ABNORMAL) CBC Auto Differential (03/27/2024 8:19 AM EDT) WBC 7.8 4.8 - 10.8 10*3/uL 03/27/2024 9:04 AM EDT [facility] RBC 3.02(L) 4.70 - 6.10 10*6/uL 03/27/2024 9:04 AM EDT [facility] Hemoglobin 8.4(L) 13.7 - 16.5 g/dL 03/27/2024 9:04 AM EDT [facility] Hematocrit 25.7(L) 40.5 - 48.5 % 03/27/2024 9:04 AM EDT [facility] MCV 85.1 80.0 - 94.0 fL 03/27/2024 9:04 AM EDT [facility] Comment:REVIEWED MCH 27.8 26.0 - 34.0 pg 03/27/2024 9:04 AM EDT [facility] MCHC 32.7 31.0 - 36.0 g/dL 03/27/2024 9:04 AM EDT [facility] RDW 16.2(H) 12.0 - 15.0 % 03/27/2024 9:04 AM EDT [facility] RDW Standard Deviation 48.9(H) 35.1 - 43.9 fL 03/27/2024 9:04 AM EDT [facility] Platelets 192 140 - 440 10*3/uL 03/27/2024 9:04 AM EDT [facility] MPV 10.5 9.4 - 12.4 fL 03/27/2024 9:04 AM EDT [facility] nRBC % 0.0 0 - 0 /100 WBCs 03/27/2024 9:04 AM EDT [facility] nRBC # <0.01 0.00 - 0.13 10*3/uL 03/27/2024 9:04 AM EDT [facility] Blood Structure of peripheral vein / Unknown Venipuncture / Unknown 03/27/2024 8:19 AM EDT 03/27/2024 8:19 AM EDT us Lidia Barry [employer] LAB BLOOD ORDERABLES Final R esult [facility] [address] [facility] [address] [place] [address], * (ABNORMAL) Comprehensive Metabolic Panel (03/27/2024 8:19 AM EDT) NA 139 136 - 145 mmol/L 03/27/2024 9:02 AM EDT [facility] K 03/27/2024 9:02 AM EDT [facility] Comment:Unable to result due to Hemolysis Cl 99 98 - 109 mmol/L 03/27/2024 9:02 AM EDT [facility] CO2 32 23 - 32 mmol/L 03/27/2024 9:02 AM EDT [facility] Anion Gap 03/27/2024 9:02 AM EDT [facility] Comment:Unable to result due to Hemolysis Glucose 121(H) 60 - 99 mg/dL 03/27/2024 9:02 AM EDT [facility] Creatinine 0.88 0.50 - 1.12 mg/dL 03/27/2024 9:02 AM EDT [facility] Calcium 8.8 8.4 - 10.4 mg/dL 03/27/2024 9:02 AM [facility] Total Protein 6.6 6.6 - 8.7 g/dL 03/[facility]2024 [facility] Albumin 2.8(L) 3.5 - 5.0 g/dL 03/27/2024 9:02 AM [facility] Bilirubin, Total 0.4 0.2 - 1.2 mg/dL 03/27/2024 9:02 [facility] Alkaline Phosphatase 89 40 - 129 U/L 03/27/2024 9:02 [facility] AST 03/27/2024 9:02 [facility] Comment:Unable to result due to Hemolysis ALT 03/27/2024 9:02 [facility] Comment:Unable to result due to Hemolysis BUN 17 8 - 23 mg/dL 03/27/2024 9:02 [facility] eGFR 85 >=60 mL/min/1. 73m2 03/27/2024 9:02 AM [facility] Comment:The estimated [...] - 4.2 g/dL 03/27/2024 9:02 AM EDT [facility] A/G Ratio 0.7(L) 1.5 - 3.0 03/27/2024 9:02 AM EDT [facility] Blood Structure of peripheral vein / Unknown Venipuncture / Unknown 03/27/2024 8:19 AM EDT 03/27/2024 8:19 AM EDT us [facility] BLOOD ORDERABLES Final R esult [facility] [address] [facility] [address] [place] [address], [place] [phone] documented in this encounter Visit Diagnoses Diagnosis [...] documented as of this encounter Care Teams Drafter Mechanical Relationship Specialty Start Date End Date Uday Sheehan [address] [place] [address] [place] [address] PCP - General Internal Medicine 03/27/24 documented as of this encounter
--- OUTSIDE RECORDS SUMMARY | 2024-08-29 16:36 | XMS_ITS | Encounter Summary ---
Author Organization [facility] Address [address] [place] [address] Care Team Providers Care Product Safety Coordinator Name Role Phone Uday Sheehan MD Primary Care Provider [phone] Encounter Details Date Type Department Care Team (Late st Contact Info) Description 08/09/2024 Lab Requisition [facility] [address] [facility] [place] [address] Tabby Bledsoe MD [address] [address] Bacteremia Social History Tobacco Use Types Packs/Day [...] documented as of this encounter Care Teams Product Safety Coordinator Relationship Specialty Start Date End Date Uday Sheehan MD [address] [place] [address] PCP - General Sewing Techniques Demonstrator 12/19/16 documented as of this encounter
--- OUTSIDE RECORDS SUMMARY | 2024-08-29 16:36 | XMS_ITS | Encounter Summary ---
Author Organization [facility] Address [address] [place] [address] Care Team Providers Care Grain Handler Name Role Phone Uday Sheehan Primary Care Provider [phone] Encounter Details Date Type Department Care Team (Late st Contact Info) Description 03/23/2024 Lab Requisition [facility] Lab [address] [place] [address] Valarie Pierson MD [address] [place] [address] Acute and chronic respiratory failure with hypoxia [...] this encounter Procedures * Due to [place] Datame[employer] law, this organization might not be sharing negative HIV tests. Procedure Name Priority Date/Time Associated Diagnosis Comments VANCOMYCIN, TROUGH Routine 03/23/2024 5: 30 AM EDT Acute and chronic respiratory failure with hypoxia (HCC) No diagnosis documented in this encounter Results * Due to [place] Dat[employer] law, this organization might not be sharing negative HIV tests. * Vancomycin, Trough (03/23/2024 5:30 AM EDT) Vancomycin Trough 15.6 10.0 - 20.0 ug/mL 03/23/2024 11:45 AM EDT [facility] Blood Structure of peripheral vein / Unknown Venipuncture / Unknown 03/23/2024 5:30 AM EDT 03/23/2024 9:17 AM EDT us Valarie Pierson MD LAB BLOOD ORDERABLES Final Res ult [facility] [address] [place] [address], documented in this encounter Visit Diagnoses Diagnosis [...] documented as of this encounter Care Teams Grain Handler Relationship Specialty Start Date End Date Uday Sheehan [address] [place] [address] [place] [address] PCP - General Internal Medicine 03/27/24 documented as of this encounter
--- OUTSIDE RECORDS SUMMARY | 2024-08-29 16:37 | XMS_ITS | Encounter Summary ---
[facility] Organization [facility] Address [address] [place] [address] Care Team Providers Care Pomologist Name Role Phone Uday Sheehan MD Primary Care Provider [phone] Encounter Details Date Type Department Care Team (Late st Contact Info) Description 06/15/2024 Lab Requisition [facility] - Main Lab [address] [place] [address] Zak Zuluaga MD [address] [place] [address] Unspecified atrial fibrillation (CMS/HCC); Essential (primary) hypertension [...] mmol/L LAB CHEMISTRY METHOD 06/17/2024 10:19 AM [facility] Potassium 4.7 3.5 - 5.5 mmol/L LAB CHEMISTRY METHOD 06/17/2024 10:19 AM [facility] Chloride 113(H) 96 - 110 mmol/L LAB CHEMISTRY METHOD 06/17/2024 10:19 AM [facility] CO2 24 21 - 32 mmol/L LAB CHEMISTRY METHOD 06/17/2024 10:19 AM [facility] Anion Gap 8 3 - 11 LAB CHEMISTRY METHOD 06/17/2024 10:19 AM [facility] Glucose 86 70 - 100 mg/dL LAB CHEMISTRY METHOD 06/17/2024 10:19 AM [facility] BUN 41(H) 5 - 25 mg/dL LAB CHEMISTRY METHOD 06/17/2024 10:19 AM [facility] Creatinine 2.95(H) 0.70 - 1.30 mg/dL LAB CHEMISTRY METHOD 06/17/2024 10:19 AM [facility] eGFR 20(L) >=60 mL/min/1. 73m2 LAB CHEMISTRY METHOD 06/17/2024 10:19 AM [facility] Comment:Calculation based on the??Chronic Kidney Disease Epidemiology Collaboration (CKD-EPI) equation refit??without adjustment for race. BUN/Creatinine Ratio 13.9 LAB CHEMISTRY METHOD 06/17/2024 10:19 AM [facility] Calcium 8.5 8.5 - 10.5 mg/dL LAB CHEMISTRY METHOD 06/17/2024 10:19 AM [facility] AST (SGOT) 50(H) 10 - 42 unit/L LAB CHEMISTRY METHOD 06/17/2024 10:19 AM [facility] ALT (SGPT) 59 10 - 60 unit/L LAB CHEMISTRY METHOD 06/17/2024 10:19 AM [facility] Alkaline Phosphatase 99 42 - 121 unit/L LAB CHEMISTRY METHOD 06/17/2024 10:19 AM [facility] Total Protein 5.9(L) 6.0 - 8.0 g/dL LAB CHEMISTRY METHOD 06/17/2024 10:19 AM [facility] Albumin 1.7(L) 3.2 - 5.0 g/dL LAB CHEMISTRY METHOD 06/17/2024 10:19 AM [facility] Total Bilirubin 0.6 0.0 - 1.4 mg/dL LAB CHEMISTRY METHOD 06/17/2024 10:19 AM [facility] Blood Venous blood specimen / Unknown Venipuncture / Unknown 06/17/2024 6:45 AM EST 06/17/2024 9:11 AM EST us Zak Zuluaga MD LAB BLOOD ORDERABLES Final Resul t [facility] [address] [place] [address], * (ABNORMAL) Complete blood count (06/17/2024 6:45 AM EST) WBC 8.6 4.8 - 10.8 K/mcL LAB HEMETOLOGY METHOD 06/17/2024 9:49 AM [facility] RBC 3.00(L) 4.50 - 5.50 M/mcL LAB HEMETOLOGY METHOD 06/17/2024 9:49 AM [facility] Hemoglobin 7.9(L) 13.5 - 17.5 g/dL LAB HEMETOLOGY METHOD 06/17/2024 9:49 AM [facility] Hematocrit 26.5(L) 42.0 - 54.0 % LAB HEMETOLOGY METHOD 06/17/2024 9:49 AM [facility] MCV 88.9 79.0 - 98.0 FL LAB HEMETOLOGY METHOD 06/17/2024 9:49 AM [facility] MCH 26.5(L) 27.0 - 32.0 pcg LAB HEMETOLOGY METHOD 06/17/2024 9:49 AM EST [facility] MCHC 29.8(L) 32.0 - 37.0 g/dL LAB HEMETOLOGY METHOD 06/17/2024 9:49 AM [facility] RDW 16.9(H) 11.0 - 15.0 % LAB HEMETOLOGY METHOD 06/17/2024 9:49 AM EST [facility] Platelets 284 130 - 400 K/mcL LAB HEMETOLOGY METHOD 06/17/2024 9:49 AM [facility] MPV 9.6 7.0 - 11.0 FL LAB HEMETOLOGY METHOD 06/17/2024 9:49 AM [facility] NRBC 0.0 <1.0 % LAB HEMETOLOGY METHOD 06/17/2024 9:49 AM [facility] NRBC Absolute 0.00 <0.10 K/mcL LAB HEMETOLOGY METHOD 06/17/2024 9:49 AM [facility] Blood Venous blood specimen / Unknown Venipuncture / Unknown 06/17/2024 6:45 AM EST 06/17/2024 9:18 AM EST us Zak Zuluaga MD LAB BLOOD ORDERABLES Final Resul t [facility] [address] [place] [address], documented in this encounter Visit Diagnoses Diagnosis Unspecified atrial fibrillation (CMS/HCC) Essential (primary) hypertension Unspecified essential hypertension documented in this encounter Additional Health Concerns Infection Onset Date Last Indicated Resolved Time ESBL 06/22/2024 06/22/2024 documented as of this encounter Care Teams Pomologist Relationship Specialty Start Date End Date Uday Sheehan MD [address] [place] [address] Dr Donna [place] PCP - General Supervisor Locomotive 12/19/16 documented as of this encounter
--- OUTSIDE RECORDS SUMMARY | 2024-08-29 16:37 | XMS_ITS | Encounter Summary ---
Author Organization [facility] Address [address] [place] [address] Care Team Providers Care Administrative Representative Name Role Phone Uday Sheehan Primary Care Provider [phone] Encounter Details Date Type Department Care Team (Late st Contact Info) Description 05/23/2024 Lab Requisition [facility] [address] [place] [address] Lidia Barry, CB [address] [place] [address] Acute and chronic respiratory failure with hypoxia [...] of this encounter Procedures * Due to [place] state law, this organization might not be [...] in this encounter Results * Due to [place] state law, this organization might not be sharing negative HIV tests. * (ABNORMAL) Sedimentation Rate (05/23/2024 9:28 AM EST) Sed Rate 77(H) 0 - 19 mm/Hr 05/23/2024 10:52 AM EST [facility] Blood Structure of peripheral vein / Unknown Venipuncture / Unknown 05/23/2024 9:28 AM EST 05/23/2024 10:40 AM EST [facility] [employer] [employer] LAB BLOOD ORDERABLES Final R esult Performing Organization Address City/State/[facility] Co de Phone Number [facility] [address] [facility] [address] [place] [address], [place] [phone] * (ABNORMAL) CBC Auto Differential (05/23/2024 9:28 AM EST) WBC 7.1 4.8 - 10.8 10*3/uL 05/23/2024 10:51 AM EST [facility] RBC 3.05(L) 4.70 - 6.10 10*6/uL 05/23/2024 10:51 AM EST [facility] Hemoglobin 8.5(L) 13.7 - 16.5 g/dL 05/23/2024 10:51 AM EST [facility] Hematocrit 26.6(L) 40.5 - 48.5 % 05/23/2024 10:51 AM EST [facility] MCV 87.2 80.0 - 94.0 fL 05/23/2024 10:51 AM EST [facility] MCH 27.9 26.0 - 34.0 pg 05/23/2024 10:51 AM [facility] MCHC 32.0 31.0 - 36.0 g/dL 05/23/2024 10:51 AM [facility] RDW 16.9(H) 12.0 - 15.0 % 05/23/2024 10:51 AM [facility] RDW Standard Deviation 54.4(H) 35.1 - 43.9 fL 05/23/2024 10:51 AM [facility] Platelets 136(L) 140 - 440 10*3/uL 05/23/2024 10:51 AM [facility] MPV 10.1 9.4 - 12.4 fL 05/23/2024 10:51 AM [facility] Neutrophil % 60.6 50.0 - 75.0 % 05/23/2024 10:51 AM [facility] Immature Grans % 0.3 0.0 - 0.9 % 05/23/2024 10:51 AM [facility] Lymphocyte % 21.6 20.0 - 44.0 % 05/23/2024 10:51 AM [facility] Monocyte % 12.6 0.0 - 14.0 % 05/23/2024 10:51 AM [facility] Eosinophil % 4.3 0.0 - 5.0 % 05/23/2024 10:51 AM [facility] Basophil % 0.6 0.0 - 2.0 % 05/23/2024 10:51 AM [facility] Neutrophil # 4.33 1.80 - 7.70 10*3/uL 05/23/2024 10:51 AM [facility] Immature Grans # <0.03 0.00 - 0.03 10*3/uL 05/23/2024 10:51 AM [facility] Lymphocyte # 1.50 1.00 - 4.75 10*3/uL 05/23/2024 10:51 AM [facility] Monocyte # 0.90 0.00 - 6.00 10*3/uL 05/23/2024 10:51 AM EST [facility] Eosinophil # 0.30 0.00 - 0.80 10*3/uL 05/23/2024 10:51 AM EST [facility] Basophil # <0.03 0.00 - 0.20 10*3/uL 05/23/2024 10:51 AM EST [facility] nRBC % 0.0 0 - 0 /100 WBCs 05/23/2024 10:51 AM EST [facility] nRBC # <0.01 0.00 - 0.13 10*3/uL 05/23/2024 10:51 AM EST [facility] Blood Structure of peripheral vein / Unknown Venipuncture / Unknown 05/23/2024 9:28 AM EST 05/23/2024 10:40 AM EST [facility] LAB BLOOD ORDERABLES Final R esult Performing Organization Address City/[facility]/ZIP Co de Phone Number [facility] [address] [address], [place] [phone] * (ABNORMAL) C-Reactive Protein (05/23/2024 9:28 AM EST) [facility] C Reactive Protein 12.4(H) <=10.0 mg/L 05/23/2024 11:08 AM EST [facility] Blood Structure of peripheral vein / Unknown Venipuncture / Unknown 05/23/2024 9:28 AM EST 05/23/2024 10:40 AM EST [facility] LAB BLOOD ORDERABLES Final R [facility] Performing Organization Address City/[facility]/ZIP Co de Phone Number [facility] [address] [address], [place] [phone] * (ABNORMAL) Comprehensive Metabolic Panel (05/23/2024 9:28 AM EST) Pathologist [facility] NA 142 136 - 145 mmol/L 05/23/2024 11:08 AM [facility] K 3.9 3.5 - 5.1 mmol/L 05/23/2024 11:08 AM [facility] Cl 104 98 - 109 mmol/L 05/23/2024 11:08 AM [facility] CO2 27 22 - 32 mmol/L 05/23/2024 11:08 AM [facility] Anion Gap 15 >=0 05/23/2024 11:08 AM [facility] Glucose 102(H) 60 - 99 mg/dL 05/23/2024 11:08 AM [facility] Creatinine 1.65(H) 0.50 - 1.12 mg/dL 05/23/2024 11:08 AM [facility] Calcium 9.1 8.4 - 10.4 mg/dL 05/23/2024 11:08 AM [facility] Total Protein 6.2(L) 6.6 - 8.7 g/dL 05/23/2024 11:08 AM [facility] Albumin 3.1(L) 3.5 - 5.0 g/dL 05/23/2024 11:08 AM [facility] Bilirubin, Total 0.2 0.2 - 1.2 mg/dL 05/23/2024 11:08 AM [facility] Alkaline Phosphatase 117 40 - 129 U/L 05/23/2024 11:08 AM [facility] AST 23 0 - 40 U/L 05/23/2024 11:08 AM [facility] ALT 14 <=41 U/L 05/23/2024 11:08 AM [facility] BUN 39(H) 8 - 23 mg/dL 05/23/2024 11:08 AM [facility] eGFR 41(L) >=60 mL/min/1. 73m2 05/23/2024 11:08 AM [facility] Comment:The estimated glomer ular filtration [...] - 4.2 g/dL 05/23/2024 11:08 AM EST [facility] A/G Ratio 1.0(L) 1.5 - 3.0 05/23/2024 11:08 AM EST [facility] Blood Structure of peripheral vein / Unknown Venipuncture / Unknown 05/23/2024 9:28 AM EST 05/23/2024 10:40 AM EST Lidia Barry LAB BLOOD ORDERABLES Final R esult Performing Organization Address City/State/[facility] Co de Phone Number [facility] [address] [facility] [address] [place] [address], documented in this encounter Visit Diagnoses Diagnosis Acute and chronic respiratory failure with hypoxia (HCC) No diagnosis documented in this encounter Additional Health Concerns Infection Onset Date Last Indicated Resolved Time 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
--- OUTSIDE RECORDS SUMMARY | 2024-08-29 16:37 | XMS_ITS | Encounter Summary ---
Author Organization [facility] Address [address] [place] [address] Care Team Providers Care Lamination Builder Name Role Phone Uday Sheehan MD Primary Care Provider [phone] Encounter Details Date Type Department Care Team (Late st Contact Info) Description 06/13/2024 Lab Requisition [facility] - Main Lab [address] [facility] [place] [address] Natanael Rodney MD [address] [place] [address] [place] [address] Anemia, unspecified Social [...] LAB CHEMISTRY METHOD 06/13/2024 11:42 AM EST [facility] Blood Venous blood specimen / Unknown Venipuncture / Unknown 06/13/2024 7:00 AM EST 06/13/2024 8:28 AM EST us Natanael Rodney MD LAB BLOOD ORDERABLES Final Resu lt Performing Organization Address [facility]/ZIP Co de Phone Number [facility] [address] [place] [address], [place] [phone] * Free thyroxine with reflex to free triiodothyronine (06/13/2024 7:00 AM EST) Free T4 0.97 0.70 - 1.80 ng/dL LAB CHEMISTRY METHOD 06/13/2024 10:56 AM EST [facility] Blood Venous blood specimen / Unknown Venipuncture / Unknown 06/13/2024 7:00 AM EST 06/13/2024 8:28 AM EST us Natanael Rodney MD LAB BLOOD ORDERABLES Final Resu lt [facility] [address] [place] [address], [place] [phone] * (ABNORMAL) Thyroid stimulating hormone with reflex to free t4 and free t3 (06/13/2024 7:00 AM EST) TSH 5.31(H) 0.40 - 4.00 mcIU/mL LAB CHEMISTRY METHOD 06/13/2024 10:28 AM EST [facility] Blood Venous blood specimen / Unknown Venipuncture / Unknown 06/13/2024 7:00 AM EST 06/13/2024 8:28 AM EST us Natanael Rodney MD LAB BLOOD ORDERABLES Final Resu lt [facility] [address] [place] [address], [place] [phone] * (ABNORMAL) Comprehensive metabolic panel (06/13/2024 7:00 AM EST) Sodium 146(H) 133 - 145 mmol/L LAB CHEMISTRY METHOD 06/13/2024 10:23 AM [facility] Potassium 4.2 3.5 - 5.5 mmol/L LAB CHEMISTRY METHOD 06/13/2024 10:23 AM [facility] Chloride 115(H) 96 - 110 mmol/L LAB CHEMISTRY METHOD 06/13/2024 10:23 AM [facility] CO2 24 21 - 32 mmol/L LAB CHEMISTRY METHOD 06/13/2024 10:23 AM [facility] Anion Gap 7 3 - 11 LAB CHEMISTRY METHOD 06/13/2024 10:23 AM [facility] Glucose 86 70 - 100 mg/dL LAB CHEMISTRY METHOD 06/13/2024 10:23 AM [facility] BUN 43(H) 5 - 25 mg/dL LAB CHEMISTRY METHOD 06/13/2024 10:23 AM [facility] Creatinine 2.70(H) 0.70 - 1.30 mg/dL LAB CHEMISTRY METHOD 06/13/2024 10:23 AM [facility] eGFR 23(L) >=60 mL/min/1. 73m2 LAB CHEMISTRY METHOD 06/13/2024 10:23 AM [facility] Comment:Calculation based on the??Chronic Kidney Disease Epidemiology Collaboration (CKD-EPI) equation refit??without adjustment for race. BUN/Creatinine Ratio 15.9 LAB CHEMISTRY METHOD 06/13/2024 10:23 AM [facility] Calcium 7.8(L) 8.5 - 10.5 mg/dL LAB CHEMISTRY METHOD 06/13/2024 10:23 AM [facility] AST (SGOT) 137(H) 10 - 42 unit/L LAB CHEMISTRY METHOD 06/13/2024 10:23 AM [facility] ALT (SGPT) 111(H) 10 - 60 unit/L LAB CHEMISTRY METHOD 06/13/2024 10:23 AM [facility] Alkaline Phosphatase 99 42 - 121 unit/L LAB CHEMISTRY METHOD 06/13/2024 10:23 AM [facility] Total Protein 5.5(L) 6.0 - 8.0 g/dL LAB CHEMISTRY METHOD 06/13/2024 10:23 AM [facility] Albumin 1.7(L) 3.2 - 5.0 g/dL LAB CHEMISTRY METHOD 06/13/2024 10:23 AM [facility] Total Bilirubin 0.5 0.0 - 1.4 mg/dL LAB CHEMISTRY METHOD 06/13/2024 10:23 AM [facility] Blood Venous blood specimen / Unknown Venipuncture / Unknown 06/13/2024 7:00 AM EST 06/13/2024 8:28 AM EST us Natanael Rodney MD LAB BLOOD ORDERABLES Final Resu lt [facility] [address] [place] [address], * (ABNORMAL) Complete blood count (06/13/2024 7:00 AM EST) WBC 4.9 4.8 - 10.8 K/mcL LAB HEMETOLOGY METHOD 06/13/2024 10:08 AM [facility] RBC 2.80(L) 4.50 - 5.50 M/mcL LAB HEMETOLOGY METHOD 06/13/2024 10:08 AM [facility] Hemoglobin 7.6(L) 13.5 - 17.5 g/dL LAB HEMETOLOGY METHOD 06/13/2024 10:08 AM [facility] Hematocrit 25.2(L) 42.0 - 54.0 % LAB HEMETOLOGY METHOD 06/13/2024 10:08 AM [facility] MCV 88.7 79.0 - 98.0 FL LAB HEMETOLOGY METHOD 06/13/2024 10:08 AM [facility] MCH 26.8(L) 27.0 - 32.0 pcg LAB HEMETOLOGY METHOD 06/13/2024 10:08 AM [facility] MCHC 30.2(L) 32.0 - 37.0 g/dL LAB HEMETOLOGY METHOD 06/13/2024 10:08 AM [facility] RDW 16.8(H) 11.0 - 15.0 % LAB HEMETOLOGY METHOD 06/13/2024 10:08 AM [facility] Platelets 188 130 - 400 K/mcL LAB HEMETOLOGY METHOD 06/13/2024 10:08 AM [facility] MPV 10.3 7.0 - 11.0 FL LAB HEMETOLOGY METHOD 06/13/2024 10:08 AM [facility] NRBC 0.0 <1.0 % LAB HEMETOLOGY METHOD 06/13/2024 10:08 AM [facility] NRBC Absolute 0.00 <0.10 K/mcL LAB HEMETOLOGY METHOD 06/13/2024 10:08 AM [facility] Blood Venous blood specimen / Unknown Venipuncture / Unknown 06/13/2024 7:00 AM EST 06/13/2024 8:28 AM EST us Natanael Rodney MD LAB BLOOD ORDERABLES Final Resu lt [facility] [address] [place] [address], documented in this encounter Visit Diagnoses Diagnosis Anemia, unspecified documented in this encounter Additional Health Concerns Infection Onset Date Last Indicated Resolved Time ESBL 06/22/2024 06/22/2024 documented as of this encounter Care Teams Lamination Builder Relationship Specialty Start Date End Date Uday Sheehan MD [address] [place] [address] Dr Donna [place] PCP - General Application Technician 12/19/16 documented as of this encounter
--- OUTSIDE RECORDS SUMMARY | 2024-08-29 16:37 | XMS_ITS | Encounter Summary ---
[facility] Address [address] [place] [address] Care Team Providers Care Supervising Appraiser Name Role Phone Uday Sheehan MD Primary Care Provider [phone] Encounter Details Date Type Department Care Team (Late st Contact Info) Description 06/26/2024 Lab Requisition [facility] - Main Lab [address] [place] [phone] Natanael Rodney PA [address] [place] [phone] Anemia, unspecified Social History Tobacco Use Types [...] AM EST) WBC 10.2 4.8 - 10.8 K/[facility] LAB HEMETOLOGY METHOD 06/26/2024 1:31 PM EST [facility] RBC 2.70(L) 4.50 - 5.50 M/[facility] LAB HEMETOLOGY METHOD 06/26/2024 1:31 PM EST [facility] Hemoglobin 7.1(L) 13.5 - 17.5 g/dL LAB HEMETOLOGY METHOD 06/26/2024 1:31 PM [facility] Hematocrit 23.9(L) 42.0 - 54.0 % LAB HEMETOLOGY METHOD 06/26/2024 1:31 PM [facility] MCV 88.2 79.0 - 98.0 FL LAB HEMETOLOGY METHOD 06/26/2024 1:31 PM [facility] MCH 26.2(L) 27.0 - 32.0 pcg LAB HEMETOLOGY METHOD 06/26/2024 1:31 PM [facility] MCHC 29.7(L) 32.0 - 37.0 g/dL LAB HEMETOLOGY METHOD 06/26/2024 1:31 PM [facility] RDW 18.0(H) 11.0 - 15.0 % LAB HEMETOLOGY METHOD 06/26/2024 1:31 PM [facility] Platelets 196 130 - 400 K/mcL LAB HEMETOLOGY METHOD 06/26/2024 1:31 PM [facility] MPV 10.2 7.0 - 11.0 FL LAB HEMETOLOGY METHOD 06/26/2024 1:31 PM [facility] NRBC 0.0 <1.0 % LAB HEMETOLOGY METHOD 06/26/2024 1:31 PM [facility] NRBC Absolute 0.00 <0.10 K/mcL LAB HEMETOLOGY METHOD 06/26/2024 1:31 PM [facility] Blood Venous blood specimen / Unknown Venipuncture / Unknown 06/26/2024 5:40 AM EST 06/26/2024 12:19 PM EST us Natanael [facility] LAB BLOOD ORDERABLES Final Re sult [facility] [address] [place] [address], documented in this encounter Visit Diagnoses Diagnosis Anemia, unspecified documented in this encounter Additional Health Concerns Infection Onset Date Last Indicated Resolved Time ESBL 06/22/2024 06/22/2024 documented as of this encounter Care Teams Supervising Appraiser Relationship Specialty Start Date End Date Uday Sheehan MD [address] [place] [address] Dr Donna [place] PCP - General Sales Service Coordinator 12/19/16 documented as of this encounter
--- OUTSIDE RECORDS SUMMARY | 2024-08-29 16:37 | XMS_ITS | Encounter Summary ---
Author Organization [facility] Address [address] [place] [address] Care Team Providers Care Fisherman Helper Name Role Phone Uday Sheehan MD Primary Care Provider [phone] Encounter Details Date Type Department Care Team (Late st Contact Info) Description 07/15/2024 Lab Requisition [facility] - Main Lab [address] [place] [address] Tabby Bledsoe MD 819 [facility] 1 [place] [address] Essential (primary) hypertension; Hypothyroidism, unspecified; Unspecified atrial [...] mmol/L LAB CHEMISTRY METHOD 07/16/2024 10:45 AM [facility] Potassium 3.6 3.5 - 5.5 mmol/L LAB CHEMISTRY METHOD 07/16/2024 10:45 AM [facility] Chloride 110 96 - 110 mmol/L LAB CHEMISTRY METHOD 07/16/2024 10:45 AM [facility] CO2 31 21 - 32 mmol/L LAB CHEMISTRY METHOD 07/16/2024 10:45 AM [facility] Anion Gap 4 3 - 11 LAB CHEMISTRY METHOD 07/16/2024 10:45 AM [facility] Glucose 107(H) 70 - 100 mg/dL LAB CHEMISTRY METHOD 07/16/2024 10:45 AM [facility] BUN 29(H) 5 - 25 mg/dL LAB CHEMISTRY METHOD 07/16/2024 10:45 AM [facility] Creatinine 1.79(H) 0.70 - 1.30 mg/dL LAB CHEMISTRY METHOD 07/16/2024 10:45 AM [facility] eGFR 37(L) >=60 mL/min/1. 73m2 LAB CHEMISTRY METHOD 07/16/2024 10:45 AM [facility] Comment:Calculation based on the??Chronic Kidney Disease Epidemiology Collaboration (CKD-EPI) equation refit??without adjustment for race. BUN/Creatinine Ratio 16.2 LAB CHEMISTRY METHOD 07/16/2024 10:45 AM [facility] Calcium 9.9 8.5 - 10.5 mg/dL LAB CHEMISTRY METHOD 07/16/2024 10:45 AM [facility] AST (SGOT) 20 10 - 42 unit/L LAB CHEMISTRY METHOD 07/16/2024 10:45 AM [facility] ALT (SGPT) 12 10 - 60 unit/L LAB CHEMISTRY METHOD 07/16/2024 10:45 AM [facility] Alkaline Phosphatase 106 42 - 121 unit/L LAB CHEMISTRY METHOD 07/16/2024 10:45 AM [facility] Total Protein 6.0 6.0 - 8.0 g/dL LAB CHEMISTRY METHOD 07/16/2024 10:45 AM [facility] Albumin 1.6(L) 3.2 - 5.0 g/dL LAB CHEMISTRY METHOD 07/16/2024 10:45 AM [facility] Total Bilirubin 0.4 0.0 - 1.4 mg/dL LAB CHEMISTRY METHOD 07/16/2024 10:45 AM [facility] Blood Venous blood specimen / Unknown Venipuncture / Unknown 07/16/2024 5:50 AM EST 07/16/2024 9:42 AM EST us Tabby Bledsoe MD LAB BLOOD ORDERABLES Fin al Result [facility] [address] [place] [address], * (ABNORMAL) Complete blood count (07/16/2024 5:50 AM EST) WBC 6.0 4.8 - 10.8 K/mcL LAB HEMETOLOGY METHOD 07/16/2024 9:59 AM [facility] RBC 2.90(L) 4.50 - 5.50 M/mcL LAB HEMETOLOGY METHOD 07/16/2024 9:59 AM [facility] Hemoglobin 7.5(L) 13.5 - 17.5 g/dL LAB HEMETOLOGY METHOD 07/16/2024 9:59 AM [facility] Hematocrit 25.1(L) 42.0 - 54.0 % LAB HEMETOLOGY METHOD 07/16/2024 9:59 AM [facility] MCV 86.9 79.0 - 98.0 FL LAB HEMETOLOGY METHOD 07/16/2024 9:59 AM [facility] MCH 26.0(L) 27.0 - 32.0 pcg LAB HEMETOLOGY METHOD 07/16/2024 9:59 AM EST [facility] MCHC 29.9(L) 32.0 - 37.0 g/dL LAB HEMETOLOGY METHOD 07/16/2024 9:59 AM [facility] RDW 19.1(H) 11.0 - 15.0 % LAB HEMETOLOGY METHOD 07/16/2024 9:59 AM EST [facility] Platelets 247 130 - 400 K/mcL LAB HEMETOLOGY METHOD 07/16/2024 9:59 AM EST [facility] MPV 9.7 7.0 - 11.0 FL LAB HEMETOLOGY METHOD 07/16/2024 9:59 AM [facility] NRBC 0.0 <1.0 % LAB HEMETOLOGY METHOD 07/16/2024 9:59 AM [facility] NRBC Absolute 0.00 <0.10 K/mcL LAB HEMETOLOGY METHOD 07/16/2024 9:59 AM [facility] Blood Venous blood specimen / Unknown Venipuncture / Unknown 07/16/2024 5:50 AM EST 07/16/2024 9:42 AM EST us Tabby Bledsoe MD LAB BLOOD ORDERABLES Fin al Result [facility] [address] [place] [address], documented in this encounter Visit Diagnoses Diagnosis Essential (primary) hypertension Unspecified essential hypertension Hypothyroidism, unspecified Unspecified atrial fibrillation (CMS/HCC) documented in this encounter Additional Health Concerns Infection Onset Date Last Indicated Resolved Time ESBL 06/22/2024 06/22/2024 documented as of this encounter Care Teams Fisherman Helper Relationship Specialty Start Date End Date Uday Sheehan MD [address] [place] [address] Dr Donna [place] PCP - General Fabrication Lead 12/19/16 documented as of this encounter
--- OUTSIDE RECORDS SUMMARY | 2024-08-29 16:37 | XMS_ITS | Encounter Summary ---
Author Organization [facility] Address [address] [place] [address] Care Team Providers Care Centrifugal Wax Molder Name Role Phone Uday Sheehan Primary Care Provider Encounter Details Date Type Department Care Team (Late st Contact Info) Description 04/22/2024 Lab Requisition [facility] [address] [place] [address] Salo Whyte MD [address] [place] [address] Acute and chronic respiratory failure with hypoxia [...] - 4.200 uIU/mL 04/22/2024 10:11 AM EDT [facility] Blood Structure of peripheral vein / Unknown 04/22/2024 9:32 AM EDT 04/22/2024 9:33 AM EDT us Salo Whyte MD LAB BLOOD ORDERABLES Final Result Performing Organization Address City/State/[facility] Co de Phone Number [facility] [address] [place] [address] [address] [place] [address], [place] [phone] * T4, Free (04/22/2024 9:32 AM EDT) Free T4 1.25 0.80 - 1.80 ng/dL 04/22/2024 10:11 AM EDT [facility] Comment: Females: (ng/dL) First Trimester [...] Whyte MD LAB BLOOD ORDERABLES Final Result [facility] [address] [facility] [address] [place] [address], [place] [phone] * (ABNORMAL) CBC Auto Differential (04/22/2024 9:32 AM EDT) WBC 5.8 4.8 - 10.8 10*3/uL 04/22/2024 9:53 AM EDT [facility] RBC 2.96(L) 4.70 - 6.10 10*6/uL 04/22/2024 9:53 AM EDT [facility] Hemoglobin 8.2(L) 13.7 - 16.5 g/dL 04/22/2024 9:53 AM EDT [facility] Hematocrit 25.7(L) 40.5 - 48.5 % 04/22/2024 9:53 AM EDT [facility] MCV 86.8 80.0 - 94.0 fL 04/22/2024 9:53 AM EDT [facility] MCH 27.7 26.0 - 34.0 pg 04/22/2024 9:53 AM EDT [facility] MCHC 31.9 31.0 - 36.0 g/dL 04/22/2024 9:53 AM EDT [facility] RDW 16.4(H) 12.0 - 15.0 % 04/22/2024 9:53 AM EDT [facility] RDW Standard Deviation 52.1(H) 35.1 - 43.9 fL 04/22/2024 9:53 AM EDT [facility] Platelets 182 140 - 440 10*3/uL 04/22/2024 9:53 AM EDT [facility] MPV 10.8 9.4 - 12.4 fL 04/22/2024 9:53 AM EDT [facility] Neutrophil % 57.5 50.0 - 75.0 % 04/22/2024 9:53 AM EDT [facility] Immature Grans % 0.2 0.0 - 0.9 % 04/22/2024 9:53 AM EDT [facility] Lymphocyte % 21.1 20.0 - 44.0 % 04/22/2024 9:53 AM EDT [facility] Monocyte % 15.7(H) 0.0 - 14.0 % 04/22/2024 9:53 AM EDT [facility] Eosinophil % 5.0 0.0 - 5.0 % 04/22/2024 9:53 AM EDT [facility] Basophil % 0.5 0.0 - 2.0 % 04/22/2024 9:53 AM EDT [facility] Neutrophil # 3.32 1.80 - 7.70 10*3/uL 04/22/2024 9:53 AM EDT [facility] Immature Grans # <0.03 0.00 - 0.03 10*3/uL 04/22/2024 9:53 AM EDT [facility] Lymphocyte # 1.20 1.00 - 4.75 10*3/uL 04/22/2024 9:53 AM EDT [facility] Monocyte # 0.90 0.00 - 6.00 10*3/uL 04/22/2024 9:53 AM EDT [facility] Eosinophil # 0.30 0.00 - 0.80 10*3/uL 04/22/2024 9:53 AM EDT [facility] Basophil # <0.03 0.00 - 0.20 10*3/uL 04/22/2024 9:53 AM EDT [facility] nRBC % 0.0 0 - 0 /100 WBCs 04/22/2024 9:53 AM EDT [facility] nRBC # <0.01 0.00 - 0.13 10*3/uL 04/22/2024 9:53 AM EDT [facility] Blood Structure of peripheral vein / Unknown 04/22/2024 9:32 AM EDT 04/22/2024 9:33 AM EDT Salo Whyte MD LAB BLOOD ORDERABLES Final Result Performing Organization Address [facility] Co de Phone Number [facility] [address] [address], [place] [phone] * N-terminal ProBrain Natriuretic Peptide - [facility] & MEM/REJIV/Forrest Only (04/22/2024 9:32 AM EDT) Pro-B-Type Natriuretic Peptide 435 <=1,800 pg/mL 04/22/2024 10:42 AM EDT [facility] Comment: RULE IN CHF >/= [...] BLOOD ORDERABLES Final Result Performing Organization Address [facility]/ZIP Co de Phone Number [facility] [address] [address], [place] [phone] * (ABNORMAL) Comprehensive Metabolic Panel (04/22/2024 9:32 AM EDT) NA 139 136 - 145 mmol/L 04/22/2024 10:11 AM EDT [facility] K 3.9 3.5 - 5.1 mmol/L 04/22/2024 10:11 AM EDT [facility] Cl 96(L) 98 - 109 mmol/L 04/22/2024 10:11 AM EDT [facility] CO2 33(H) 22 - 32 mmol/L 04/22/2024 10:11 AM EDT [facility] Anion Gap 14 >=0 04/22/2024 10:11 AM EDT [facility] Glucose 98 60 - 99 mg/dL 04/22/2024 10:11 AM EDT [facility] Creatinine 1.43(H) 0.50 - 1.12 mg/dL 04/22/2024 10:11 AM EDT [facility] Calcium 9.9 8.4 - 10.4 mg/dL 04/22/2024 10:11 AM T [facility] Total Protein 6.3(L) 6.6 - 8.7 g/dL 04/22/2024 10:11 AM EDT [facility] Albumin 3.0(L) 3.5 - 5.0 g/dL 04/22/2024 10:11 AM [facility] Bilirubin, Total 0.4 0.2 - 1.2 mg/dL 04/22/2024 10:11 AM EDT [facility] Alkaline Phosphatase 106 40 - 129 U/L [facility] AST 34 0 - 40 U/L 04/22/2024 10:11 AM [facility] ALT 30 <=41 U/L 04/22/2024 10:11 AM EDT [facility] BUN 50(H) 8 - 23 mg/dL 04/22/2024 10:11 AM [facility] eGFR 48(L) >=60 mL/min/1. 73m2 04/22/2024 10:11 AM T [facility] Comment:The estimated glomer ular filtration [...] - 4.2 g/dL 04/22/2024 10:11 AM EDT [facility] A/G Ratio 0.9(L) 1.5 - 3.0 04/22/2024 10:11 AM EDT [facility] Blood Structure of peripheral vein / Unknown 04/22/2024 9:32 AM EDT 04/22/2024 9:33 AM EDT Salo Whyte MD LAB BLOOD ORDERABLES Final Result Performing Organization Address City/State/[facility] Co de Phone Number [facility] [address] [facility] [address] [place] [address], documented in this encounter Visit Diagnoses Diagnosis Acute and chronic respiratory failure with hypoxia (HCC) No diagnosis documented in this encounter Additional Health Concerns Infection Onset Date Last Indicated Resolved Time Multidrug resistant organisms MRSA 03/25/20242023 documented as of this encounter Care Teams Centrifugal Wax Molder Relationship Specialty Start Date End Date Uday Sheehan [address] [place] [address] [place] [address] PCP - General Internal Medicine 03/27/24 documented as of this encounter
--- OUTSIDE RECORDS SUMMARY | 2024-08-29 16:37 | XMS_ITS | Encounter Summary ---
Author Organization [facility] Address [address] [place] [address] Care Team Providers Care Art Tracer Name Role Phone Uday Sheehan MD Primary Care Provider [phone] Encounter Details Date Type Department Care Team (Late st Contact Info) Description 07/12/2024 Lab Requisition [facility] - Main Lab [address] [facility] [place] [address] Tabby Bledsoe MD [address] [address] Bacteremia Social History Tobacco Use Types Packs/Day [...] documented as of this encounter Care Teams Art Tracer Relationship Specialty Start Date End Date Uday Sheehan MD [address] [place] [address] PCP - General Rock Lather 12/19/16 documented as of this encounter
--- OUTSIDE RECORDS SUMMARY | 2024-08-29 16:37 | XMS_ITS | Encounter Summary ---
Author Organization [facility] Address [address] [place] [address] Care Team Providers Care Automatic Head Sawyer Name Role Phone Uday Sheehan MD Primary Care Provider [phone] Encounter Details Date Type Department Care Team (Late st Contact Info) Description 06/21/[address] [facility] - Main Lab [address] [place] [address] Zak Zuluaga MD [address] [place] [address] Unspecified kidney failure; COVID-19 Social History Tobacco [...] LAB CHEMISTRY METHOD 06/21/2024 11:17 AM EST [facility] Potassium 4.3 3.5 - 5.5 mmol/L LAB CHEMISTRY METHOD 06/21/2024 11:17 AM EST [facility] Chloride 114(H) 96 - 110 mmol/L LAB CHEMISTRY METHOD 06/21/2024 11:17 AM [facility] CO2 23 21 - 32 mmol/L LAB CHEMISTRY METHOD 06/21/2024 11:17 AM [facility] Anion Gap 10 3 - 11 LAB CHEMISTRY METHOD 06/21/2024 11:17 AM [facility] Glucose 90 70 - 100 mg/dL LAB CHEMISTRY METHOD 06/21/2024 11:17 AM [facility] BUN 65(H) 5 - 25 mg/dL LAB CHEMISTRY METHOD 06/21/2024 11:17 AM [facility] Creatinine 3.53(H) 0.70 - 1.30 mg/dL LAB CHEMISTRY METHOD 06/21/2024 11:17 AM [facility] eGFR 16(L) >=60 mL/min/1. 73m2 LAB CHEMISTRY METHOD 06/21/2024 11:17 AM [facility] Comment:Calculation based on the??Chronic Kidney Disease Epidemiology Collaboration (CKD-EPI) equation refit??without adjustment for race. BUN/Creatinine Ratio 18.4 LAB CHEMISTRY METHOD 06/21/2024 11:17 AM [facility] Calcium 8.5 8.5 - 10.5 mg/dL LAB CHEMISTRY METHOD 06/21/2024 11:17 AM [facility] Blood Venous blood specimen / Unknown Venipuncture / Unknown 06/21/2024 6:57 AM EST 06/21/2024 9:08 AM EST us Zak Zuluaga MD LAB BLOOD ORDERABLES Final Resul t [facility] [address] [place] [address], documented in this encounter Visit Diagnoses Diagnosis Unspecified kidney failure COVID-19 documented in this encounter Additional Health Concerns Infection Onset Date Last Indicated Resolved Time ESBL 06/22/2024 06/22/2024 documented as of this encounter Care Teams Automatic Head Sawyer Relationship Specialty Start Date End Date Uday Sheehan MD [address] [place] [address] Dr Donna [place] PCP - General Line Erector Apprentice 12/19/16 documented as of this encounter
--- OUTSIDE RECORDS SUMMARY | 2024-08-29 16:37 | XMS_ITS | Encounter Summary ---
Author Organization [facility] Address [address] [place] [address] Care Team Providers Care Coremaking Supervisor Name Role Phone Uday Sheehan MD Primary Care Provider [phone] Encounter Details Date Type Department Care Team (Late st Contact Info) Description 07/11/2024 Lab Requisition [facility] - Main Lab [address] [place] [address] Tabby Bledsoe MD [address] [address] Acute kidney failure, unspecified (CMS/HCC) Social History [...] LAB CHEMISTRY METHOD 07/11/2024 11:14 AM EST [facility] Potassium 4.1 3.5 - 5.5 mmol/L LAB CHEMISTRY METHOD 07/11/2024 11:14 AM [facility] Chloride 113(H) 96 - 110 mmol/L LAB CHEMISTRY METHOD 07/11/2024 11:14 AM [facility] CO2 31 21 - 32 mmol/L LAB CHEMISTRY METHOD 07/11/2024 11:14 AM [facility] Anion Gap 3 3 - 11 LAB CHEMISTRY METHOD 07/11/2024 11:14 AM [facility] Glucose 100 70 - 100 mg/dL LAB CHEMISTRY METHOD 07/11/2024 11:14 AM [facility] BUN 29(H) 5 - 25 mg/dL LAB CHEMISTRY METHOD 07/11/2024 11:14 AM [facility] Creatinine 1.31(H) 0.70 - 1.30 mg/dL LAB CHEMISTRY METHOD 07/11/2024 11:14 AM [facility] eGFR 54(L) >=60 mL/min/1. 73m2 LAB CHEMISTRY METHOD 07/11/2024 11:14 AM [facility] Comment:Calculation based on the??Chronic Kidney Disease Epidemiology Collaboration (CKD-EPI) equation refit??without adjustment for race. BUN/Creatinine Ratio 22.1 LAB CHEMISTRY METHOD 07/11/2024 11:14 AM [facility] Calcium 10.3 8.5 - 10.5 mg/dL LAB CHEMISTRY METHOD 07/11/2024 11:14 AM [facility] AST (SGOT) 36 10 - 42 unit/L LAB CHEMISTRY METHOD 07/11/2024 11:14 AM [facility] ALT (SGPT) 23 10 - 60 unit/L LAB CHEMISTRY METHOD 07/11/2024 11:14 AM [facility] Alkaline Phosphatase 127(H) 42 - 121 unit/L LAB CHEMISTRY METHOD 07/11/2024 11:14 AM [facility] Total Protein 5.8(L) 6.0 - 8.0 g/dL LAB CHEMISTRY METHOD 07/11/2024 11:14 AM [facility] Albumin 1.6(L) 3.2 - 5.0 g/dL LAB CHEMISTRY METHOD 07/11/2024 11:14 AM [facility] Total Bilirubin 0.4 0.0 - 1.4 mg/dL LAB CHEMISTRY METHOD 07/11/2024 11:14 AM [facility] Blood Venous blood specimen / Unknown Venipuncture / Unknown 07/11/2024 5:17 AM EST 07/11/2024 10:02 AM EST us Tabby Bledsoe MD LAB BLOOD ORDERABLES Fin al Result [facility] [address] [place] [address], * (ABNORMAL) Complete blood count (07/11/2024 5:17 AM EST) WBC 6.4 4.8 - 10.8 K/mcL LAB HEMETOLOGY METHOD 07/11/2024 10:30 AM [facility] RBC 2.80(L) 4.50 - 5.50 M/mcL LAB HEMETOLOGY METHOD 07/11/2024 10:30 AM [facility] Hemoglobin 7.3(L) 13.5 - 17.5 g/dL LAB HEMETOLOGY METHOD 07/11/2024 10:30 AM [facility] Hematocrit 24.5(L) 42.0 - 54.0 % LAB HEMETOLOGY METHOD 07/11/2024 10:30 AM [facility] MCV 87.8 79.0 - 98.0 FL LAB HEMETOLOGY METHOD 07/11/2024 10:30 AM [facility] MCH 26.2(L) 27.0 - 32.0 pcg LAB HEMETOLOGY METHOD 07/11/2024 10:30 AM EST [facility] MCHC 29.8(L) 32.0 - 37.0 g/dL LAB HEMETOLOGY METHOD 07/11/2024 10:30 AM [facility] RDW 19.2(H) 11.0 - 15.0 % LAB HEMETOLOGY METHOD 07/11/2024 10:30 AM EST [facility] Platelets 210 130 - 400 K/mcL LAB HEMETOLOGY METHOD 07/11/2024 10:30 AM [facility] MPV 10.2 7.0 - 11.0 FL LAB HEMETOLOGY METHOD 07/11/2024 10:30 AM [facility] NRBC 0.0 <1.0 % LAB HEMETOLOGY METHOD 07/11/2024 10:30 AM [facility] NRBC Absolute 0.00 <0.10 K/mcL LAB HEMETOLOGY METHOD 07/11/2024 10:30 AM [facility] Blood Venous blood specimen / Unknown Venipuncture / Unknown 07/11/2024 5:17 AM EST 07/11/2024 10:02 AM EST us Tabby Bledsoe MD LAB BLOOD ORDERABLES Fin al Result [facility] [address] [place] [address], documented in this encounter Visit Diagnoses Diagnosis Acute kidney failure, unspecified (CMS/HCC) Acute kidney failure, unspecified documented in this encounter Additional Health Concerns Infection Onset Date Last Indicated Resolved Time ESBL 06/22/2024 06/22/2024 documented as of this encounter Care Teams Coremaking Supervisor Relationship Specialty Start Date End Date Uday Sheehan MD [address] [facility] [address] Donna [place] PCP - General Vice President Of Compliance 12/19/16 documented as of this encounter
--- OUTSIDE RECORDS SUMMARY | 2024-08-29 16:37 | XMS_ITS | Encounter Summary ---
Author Organization [facility] Address [address] [place] [address] Care Team Providers Care Front End Alignment Specialist Name Role Phone Uday Sheehan Primary Care Provider [phone] Encounter Details Date Type Department Care Team (Late st Contact Info) Description 05/28/2024 Lab Requisition [facility] Lab Department [address] [place] [address] Lidia Barry NP [address] [place] [address] Acute and chronic respiratory failure with hypoxia [...] this encounter Procedures * Due to [place] [employer] law, this organization might not be sharing negative HIV tests. Procedure Name Priority Date/Time Associated Diagnosis Comments TROPONIN T HIGH SENSITIVITY Routine 05/28/2024 8:45 PM EST Acute and chronic respiratory failure with hypoxia (HCC) No diagnosis documented in this encounter Results * Due to [place] [employer] law, this organization might not be sharing negative HIV tests. * (ABNORMAL) Troponin T, High Sensitivity (05/28/2024 8:45 PM EST) Troponin T High Sensitivity 35(H) 6 - 22 ng/L 05/28/2024 9:42 PM EST [facility] Comment: [id number]-[id number] level of 52 ng/L or higher at [...] be evaluated in line with the 4th [place] Definition of AMI. Troponin baseline and serial [...] PM EST 05/28/2024 9:26 PM EST [facility] LAB BLOOD ORDERABLES Final R esult [facility] [address] [place] [address], documented in this encounter Visit Diagnoses Diagnosis Acute and chronic respiratory failure with hypoxia (HCC) No diagnosis documented in this encounter Additional Health Concerns Infection Onset Date Last Indicated Resolved Time Multidrug resistant organisms MRSA 03/25/20242023 documented as of this encounter Care Teams Front End Alignment Specialist Relationship Specialty Start Date End Date Uday Sheehan [address] [place] [address] [place] [address] PCP - General Internal Medicine 03/27/24 documented as of this encounter
--- OUTSIDE RECORDS SUMMARY | 2024-08-29 16:37 | XMS_ITS | Clinical Summary ---
Author Organization [facility] Address [address] [place] [address] Care Team Providers Care Scrap Baller Name Role Phone Uday Sheehan Primary Care Provider [phone] Allergies No known active allergies Medications acetaminophen [...] by mouth every 12 hours. 04/08/20 Active [id number] hegtx-kg-arc (VIDHYA WITH COLLAGEN) 7-7-1.5 gram powder in [...] WBC of 7.4. - [facility] (per[facility] endoscopic [facility]st[facility]) status 03/28/2024 [...] consolidation LLL. O2 increased to 50% per GRAVITY PROSPECTING OPERATOR HELPER: plugging secretions but not clogged at that [...] consolidation LLL. O2 increased to 50% per GRAVITY PROSPECTING OPERATOR HELPER: plugging secretions but not clogged at that [...] PM EDT): As per AHRF section. Immunizations Immunization Administration Dates Next Due Influenza, Trivalent, Adjuvanted, [...] Hydroxy / Vitamin D 1940 PTH 1940 Urine Microalbumin 02/15/1950 Pneumococcal Vaccine: 50+ Years (1 of 2 - PCV) 02/15/1959 DTaP,Tdap,and Td Vaccines (1 - Tdap) 02/15/1962 Zoster Vaccines (1 of 2) 02/15/1990 RSV Vaccine (60+ years old and patients) (1 - 1-dose 75+ series) 02/15/2015 COVID-19 Vaccine ( - season) 2024 Alcohol/Substance Use Screening 07/10/2024 Depression [...] complete this topic Procedures * Due to [place] law, [...] - 10.8 10*3/uL 05/27/2024 10:58 AM EST [facility] RBC 3.05(L) 4.70 - 6.10 10*6/uL 05/27/2024 10:58 AM EST [facility] Hemoglobin 8.4(L) 13.7 - 16.5 g/dL 05/27/2024 10:58 AM EST [facility] Hematocrit 26.6(L) 40.5 - 48.5 % 05/27/2024 10:58 AM EST [facility] MCV 87.2 80.0 - 94.0 fL 05/27/2024 10:58 AM EST [facility] MCH 27.5 26.0 - 34.0 pg 05/27/2024 10:58 AM EST [facility] MCHC 31.6 31.0 - 36.0 g/dL 05/27/2024 10:58 AM EST [facility] RDW 17.0(H) 12.0 - 15.0 % 05/27/2024 10:58 AM EST [facility] RDW Standard Deviation 54.3(H) 35.1 - 43.9 fL 05/27/2024 10:58 AM EST [facility] Platelets 147 140 - 440 10*3/uL 05/27/2024 10:58 AM EST [facility] MPV 10.1 9.4 - 12.4 fL 05/27/2024 10:58 AM EST [facility] Neutrophil % 57.4 50.0 - 75.0 % 05/27/2024 10:58 AM EST [facility] Immature Grans % 0.3 0.0 - 0.9 % 05/27/2024 10:58 AM EST [facility] Lymphocyte % 23.7 20.0 - 44.0 % 05/27/2024 10:58 AM EST [facility] Monocyte % 12.7 0.0 - 14.0 % 05/27/2024 10:58 AM EST [facility] Eosinophil % 5.6(H) 0.0 - 5.0 % 05/27/2024 10:58 AM EST [facility] Basophil % 0.3 0.0 - 2.0 % 05/27/2024 10:58 AM EST [facility] Neutrophil # 3.51 1.80 - 7.70 10*3/uL 05/27/2024 10:58 AM EST [facility] Immature Grans # <0.03 0.00 - 0.03 10*3/uL 05/27/2024 10:58 AM EST [facility] Lymphocyte # 1.50 1.00 - 4.75 10*3/uL 05/27/2024 10:58 AM EST [facility] Monocyte # 0.80 0.00 - 6.00 10*3/uL 05/27/2024 10:58 AM EST [facility] Eosinophil # 0.30 0.00 - 0.80 10*3/uL 05/27/2024 10:58 AM EST [facility] Basophil # <0.03 0.00 - 0.20 10*3/uL 05/27/2024 10:58 AM EST [facility] nRBC % 0.0 0 - 0 /100 WBCs 05/27/2024 10:58 AM EST [facility] nRBC # <0.01 0.00 - 0.13 10*3/uL 05/27/2024 10:58 AM EST [facility] Blood Structure of peripheral vein / Unknown Venipuncture / Unknown 05/27/2024 10:09 AM EST 05/27/2024 10:10 AM EST us Salo Whtye MD LAB BLOOD ORDERABLES Final Result Performing Organization Address City/State/[facility] Co de Phone Number [facility] [address] [place] [address], [place] [phone] * (ABNORMAL) Comprehensive Metabolic Panel (05/27/2024 10:09 AM EST) NA 142 136 - 145 mmol/L 05/27/2024 11:11 AM EST [facility] K 3.9 3.5 - 5.1 mmol/L 05/27/2024 11:11 AM EST [facility] Cl 104 98 - 109 mmol/L 05/27/2024 11:11 AM EST [facility] CO2 30 22 - 32 mmol/L 05/27/2024 11:11 AM EST [facility] Anion Gap 12 >=0 05/27/2024 11:11 AM EST [facility] Glucose 99 60 - 99 mg/dL 05/27/2024 11:11 AM [facility] Creatinine 1.71(H) 0.50 - 1.12 mg/dL 05/27/2024 11:11 AM EST [facility] Calcium 9.4 8.4 - 10.4 mg/dL 05/27/2024 11:11 AM [facility] Total Protein 6.0(L) 6.6 - 8.7 g/dL 05/27/2024 11:11 AM [facility] Albumin 2.9(L) 3.5 - 5.0 g/dL 05/27/2024 11:11 AM [facility] Bilirubin, Total 0.3 0.2 - 1.2 mg/dL 05/27/2024 11:11 AM [facility] Alkaline Phosphatase 113 40 - 129 U/L 05/27/2024 11:11 AM [facility] AST 18 0 - 40 U/L 05/27/2024 11:11 AM [facility] ALT 12 <=41 U/L 05/27/2024 11:11 AM [facility] BUN 41(H) 8 - 23 mg/dL 05/27/2024 11:11 AM [facility] eGFR 39(L) >=60 mL/min/1. 73m2 05/27/2024 11:11 AM EST [facility] Comment:The estimated glomer ular [...] - 4.2 g/dL 05/27/2024 11:11 AM EST [facility] A/G Ratio 0.9(L) 1.5 - 3.0 05/27/2024 11:11 AM EST [facility] Blood Structure of peripheral vein / Unknown Venipuncture / Unknown 05/27/2024 10:09 AM EST 05/27/2024 10:10 AM EST us Salo Whyte MD LAB BLOOD ORDERABLES Final Result [facility] [address] [place] [address], * Phosphorus (04/08/2024 5:21 AM EDT) Phosphorus 4.2 2.5 - 4.5 mg/dL 04/08/2024 5:46 AM EDT [facility] Blood Structure of peripheral vein / Unknown Venipuncture / Unknown 04/08/2024 5:21 AM EDT 04/08/2024 5:24 AM EDT us Jori Longo NP LAB BLOOD ORDERABLES Fi nal Result [facility] [address] [place] [address], from Last 3 Months or Most Recently Relevant to Health Maintenance Additional Health Concerns Infection Onset Date Last Indicated Multidrug resistant organisms MRSA 03/25/2024 05/07/2024 Insurance [facility] MEDICARE Advance Directives Documents on File Type Date Recorded Patient Commercial Credit Lead Expl anation Health Care Proxy 03/31/2024 10:53 [...] Atkinson Daughter Next of Kin Care Teams Scrap Baller Relationship Specialty Start Date End Date Uday Sheehan [address] [place] [address] [place] [address] PCP - General Internal Medicine 03/27/24
--- OUTSIDE RECORDS SUMMARY | 2024-08-29 16:37 | XMS_ITS | Encounter Summary ---
Author Organization [facility] Address [address] [place] [address] Care Team Providers Care Acquisition Advisor Name Role Phone Uday Sheehan MD Primary Care Provider Encounter Details Date Type Department Care Team (Late st Contact Info) Description 06/12/2024 Lab Requisition [facility] - Main Lab [address] [place] [address] Pearl Garcia MD [address] [place] [address] Abnormal results of liver function [...] LAB CHEMISTRY METHOD 06/12/2024 12:15 PM EST [facility] Blood Venous blood specimen / Unknown Venipuncture / Unknown 06/12/2024 9:20 AM EST 06/12/2024 11:19 AM EST us Pearl Garcia MD LAB BLOOD ORDERABLES Final Resul t Performing Organization Address [facility] Co de Phone Number [facility] [address] [place] [address], [place] [phone] * (ABNORMAL) Triiodothyronine free (06/12/2024 9:20 AM EST) T3, Free 148(L) 230 - 420 pcg/dL LAB CHEMISTRY METHOD 06/12/2024 12:15 PM EST [facility] Blood Venous blood specimen / Unknown Venipuncture / Unknown 06/12/2024 9:20 AM EST 06/12/2024 11:19 AM EST us Pearl Garcia MD LAB BLOOD ORDERABLES Final Resul t [facility] [address] [place] [address], [place] [phone] * (ABNORMAL) Thyroid stimulating hormone (06/12/2024 9:20 AM EST) TSH 4.91(H) 0.40 - 4.00 mcIU/mL LAB CHEMISTRY METHOD 06/12/2024 12:15 PM EST [facility] Blood Venous blood specimen / Unknown Venipuncture / Unknown 06/12/2024 9:20 AM EST 06/12/2024 11:19 AM EST us Pearl Garcia MD LAB BLOOD ORDERABLES Final Resul t Performing Organization Address [facility] de Phone Number [facility] [address] [place] [address], [place] [phone] * (ABNORMAL) Alanine aminotransferase (06/12/2024 9:20 AM EST) ALT (SGPT) 127(H) 10 - 60 unit/L LAB CHEMISTRY METHOD 06/12/2024 12:03 PM EST [facility] Blood Venous blood specimen / Unknown Venipuncture / Unknown 06/12/2024 9:20 AM EST 06/12/2024 11:19 AM EST us Pearl Garcia MD LAB BLOOD ORDERABLES Final Resul t Performing Organization Address [facility] de Phone Number [facility] [address] [place] [address], [place] [phone] * (ABNORMAL) Aspartate aminotransferase (06/12/2024 9:20 AM EST) AST (SGOT) 185(H) 10 - 42 unit/L LAB CHEMISTRY METHOD 06/12/2024 12:04 PM EST [facility] Blood Venous blood specimen / Unknown Venipuncture / Unknown 06/12/2024 9:20 AM EST 06/12/2024 11:19 AM EST us Pearl Garcia MD LAB BLOOD ORDERABLES Final Resul t Performing Organization Address [facility] de Phone Number [facility] [address] [place] [address], [place] [phone] documented in this encounter Visit Diagnoses Diagnosis Abnormal results of liver function studies Nonspecific abnormal results of liver function study Hypothyroidism, unspecified documented in this encounter Additional Health Concerns Infection Onset Date Last Indicated Resolved Time ESBL 06/22/2024 06/22/2024 documented as of this encounter Care Teams Acquisition Advisor Relationship Specialty Start Date End Date Uday Sheehan MD [address] [place] [address] Dr Donna [place] PCP - General Biochemistry Professor 12/19/16 documented as of this encounter
--- OUTSIDE RECORDS SUMMARY | 2024-08-29 16:37 | XMS_ITS | Encounter Summary ---
Author Organization [facility] Address [address] [place] [address] Care Team Providers Care Express Manager Name Role Phone Uday Sheehan MD Primary Care Provider [phone] Encounter Details Date Type Department Care Team (Late st Contact Info) Description 07/27/2024 Lab Requisition [facility] - Main Lab [address] [place] [address] Tabby Bledsoe MD [address] [address] Bacteremia Social History Tobacco Use Types Packs/Day [...] LAB CHEMISTRY METHOD 07/29/2024 2:40 PM EST [facility] Potassium 3.6 3.5 - 5.5 mmol/L LAB CHEMISTRY METHOD 07/29/2024 2:40 PM [facility] Chloride 105 96 - 110 mmol/L LAB CHEMISTRY METHOD 07/29/2024 2:40 PM [facility] CO2 29 21 - 32 mmol/L LAB CHEMISTRY METHOD 07/29/2024 2:40 PM [facility] Anion Gap 7 3 - 11 LAB CHEMISTRY METHOD 07/29/2024 2:40 PM [facility] Glucose 98 70 - 100 mg/dL LAB CHEMISTRY METHOD 07/29/2024 2:40 PM [facility] BUN 26(H) 5 - 25 mg/dL LAB CHEMISTRY METHOD 07/29/2024 2:40 PM [facility] Creatinine 2.26(H) 0.70 - 1.30 mg/dL LAB CHEMISTRY METHOD 07/29/2024 2:40 PM [facility] eGFR 28(L) >=60 mL/min/1. 73m2 LAB CHEMISTRY METHOD 07/29/2024 2:40 PM [facility] Comment:Calculation based on the??Chronic Kidney Disease Epidemiology Collaboration (CKD-EPI) equation refit??without adjustment for race. BUN/Creatinine Ratio 11.5 LAB CHEMISTRY METHOD 07/29/2024 2:40 PM [facility] Calcium 8.5 8.5 - 10.5 mg/dL LAB CHEMISTRY METHOD 07/29/2024 2:40 PM [facility] AST (SGOT) 15 10 - 42 unit/L LAB CHEMISTRY METHOD 07/29/2024 2:40 PM [facility] ALT (SGPT) 8(L) 10 - 60 unit/L LAB CHEMISTRY METHOD 07/29/2024 2:40 PM [facility] Alkaline Phosphatase 93 42 - 121 unit/L LAB CHEMISTRY METHOD 07/29/2024 2:40 PM [facility] Total Protein 5.5(L) 6.0 - 8.0 g/dL LAB CHEMISTRY METHOD 07/29/2024 2:40 PM [facility] Albumin 1.5(L) 3.2 - 5.0 g/dL LAB CHEMISTRY METHOD 07/29/2024 2:40 PM [facility] Total Bilirubin 0.2 0.0 - 1.4 mg/dL LAB CHEMISTRY METHOD 07/29/2024 2:40 PM [facility] Blood Venous blood specimen / Unknown Venipuncture / Unknown 07/29/2024 10:02 AM EST 07/29/2024 12:19 PM EST us Tabby Bledsoe MD LAB BLOOD ORDERABLES Fin al Result [facility] [address] [place] [address], [place] [phone] * (ABNORMAL) Complete blood count (07/29/2024 10:02 AM EST) WBC 6.7 4.8 - 10.8 K/mcL LAB HEMETOLOGY METHOD 07/29/2024 2:00 PM [facility] RBC 2.80(L) 4.50 - 5.50 M/mcL LAB HEMETOLOGY METHOD 07/29/2024 2:00 PM [facility] Hemoglobin 7.3(L) 13.5 - 17.5 g/dL LAB HEMETOLOGY METHOD 07/29/2024 2:00 PM [facility] Hematocrit 25.3(L) 42.0 - 54.0 % LAB HEMETOLOGY METHOD 07/29/2024 2:00 PM [facility] MCV 90.0 79.0 - 98.0 FL LAB HEMETOLOGY METHOD 07/29/2024 2:00 PM [facility] MCH 26.0(L) 27.0 - 32.0 pcg LAB HEMETOLOGY METHOD 07/29/2024 2:00 PM [facility] MCHC 28.9(L) 32.0 - 37.0 g/dL LAB HEMETOLOGY METHOD 07/29/2024 2:00 PM [facility] RDW 19.8(H) 11.0 - 15.0 % LAB HEMETOLOGY METHOD 07/29/2024 2:00 PM [facility] Platelets 240 130 - 400 K/mcL LAB HEMETOLOGY METHOD 07/29/2024 2:00 PM [facility] MPV 9.5 7.0 - 11.0 FL LAB HEMETOLOGY METHOD 07/29/2024 2:00 PM [facility] NRBC 0.0 <1.0 % LAB HEMETOLOGY METHOD 07/29/2024 2:00 PM [facility] NRBC Absolute 0.00 <0.10 K/mcL LAB HEMETOLOGY METHOD 07/29/2024 2:00 PM [facility] Blood Venous blood specimen / Unknown Venipuncture / Unknown 07/29/2024 10:02 AM EST 07/29/2024 12:19 PM EST Tabby Bledsoe MD LAB BLOOD ORDERABLES Fin al Result [facility] [address] [place] [address], documented in this encounter Visit Diagnoses Diagnosis Bacteremia documented in this encounter Additional Health Concerns Infection Onset Date Last Indicated Resolved Time ESBL 06/22/2024 06/22/2024 documented as of this encounter Care Teams Express Manager Relationship Specialty Start Date End Date Uday Sheehan MD [address] [place] [address] Dr Donna [place] PCP - General Piece Cutter 12/19/16 documented as of this encounter
--- OUTSIDE RECORDS SUMMARY | 2024-08-29 16:37 | XMS_ITS | Encounter Summary ---
Author Organization [facility] Address [address] [place] [address] Care Team Providers Care Mail Forwarding System Markup Clerk Name Role Phone Uday Sheehan Primary Care Provider [phone] Encounter Details Date Type Department Care Team (Late st Contact Info) Description 04/11/2024 Lab Requisition [facility] [address] [place] [address] Salo Whyte MD [address] [place] [address] Acute and chronic respiratory failure with hypoxia [...] - 10.8 10*3/uL 04/11/2024 11:04 AM EDT [facility] RBC 2.95(L) 4.70 - 6.10 10*6/uL 04/11/2024 11:04 AM EDT [facility] Hemoglobin 8.0(L) 13.7 - 16.5 g/dL 04/11/2024 11:04 AM EDT [facility] Hematocrit 26.3(L) 40.5 - 48.5 % 04/11/2024 11:04 AM EDT [facility] MCV 89.2 80.0 - 94.0 fL 04/11/2024 11:04 AM EDT [facility] MCH 27.1 26.0 - 34.0 pg 04/11/2024 11:04 AM EDT [facility] MCHC 30.4(L) 31.0 - 36.0 g/dL 04/11/2024 11:04 AM EDT [facility] RDW 17.3(H) 12.0 - 15.0 % 04/11/2024 11:04 AM EDT [facility] RDW Standard Deviation 54.4(H) 35.1 - 43.9 fL 04/11/2024 11:04 AM EDT [facility] Platelets 226 140 - 440 10*3/uL 04/11/2024 11:04 AM EDT [facility] MPV 10.2 9.4 - 12.4 fL 04/11/2024 11:04 AM EDT [facility] Neutrophil % 62.6 50.0 - 75.0 % 04/11/2024 11:04 AM EDT [facility] Immature Grans % 0.8 0.0 - 0.9 % 04/11/2024 11:04 AM EDT [facility] Lymphocyte % 21.4 20.0 - 44.0 % 04/11/2024 11:04 AM EDT [facility] Monocyte % 10.4 0.0 - 14.0 % 04/11/2024 11:04 AM EDT [facility] Eosinophil % 4.3 0.0 - 5.0 % 04/11/2024 11:04 AM EDT [facility] Basophil % 0.5 0.0 - 2.0 % 04/11/2024 11:04 AM EDT [facility] Neutrophil # 5.02 1.80 - 7.70 10*3/uL 04/11/2024 11:04 AM EDT [facility] Immature Grans # 0.06(H) 0.00 - 0.03 10*3/uL 04/11/2024 11:04 AM EDT [facility] Lymphocyte # 1.70 1.00 - 4.75 10*3/uL 04/11/2024 11:04 AM EDT [facility] Monocyte # 0.80 0.00 - 6.00 10*3/uL 04/11/2024 11:04 AM EDT [facility] Eosinophil # 0.30 0.00 - 0.80 10*3/uL 04/11/2024 11:04 AM EDT [facility] Basophil # <0.03 0.00 - 0.20 10*3/uL 04/11/2024 11:04 AM EDT [facility] nRBC % 0.0 0 - 0 /100 WBCs 04/11/2024 11:04 AM EDT [facility] nRBC # <0.01 0.00 - 0.13 10*3/uL 04/11/2024 11:04 AM EDT [facility] Blood Structure of peripheral vein / Unknown Venipuncture / Unknown 04/11/2024 10:41 AM EDT 04/11/2024 10:41 AM EDT us Salo Lyubchik MD LAB BLOOD ORDERABLES Final Result [facility] [address] [place] [address], * (ABNORMAL) Basic Metabolic Panel (04/11/2024 10:41 AM EDT) NA 141 136 - 145 mmol/L 04/11/2024 11:19 AM EDT [facility] K 3.8 3.5 - 5.1 mmol/L 04/11/2024 11:19 AM EDT [facility] Cl 100 98 - 109 mmol/L 04/11/2024 11:19 AM EDT [facility] CO2 32 22 - 32 mmol/L 04/11/2024 11:19 AM EDT [facility] BUN 45(H) 8 - 23 mg/dL 04/11/2024 11:19 AM EDT [facility] Creatinine 1.10 0.50 - 1.12 mg/dL 04/11/2024 11:19 AM EDT [facility] Glucose 106(H) 60 - 99 mg/dL 04/11/2024 11:19 AM EDT [facility] Calcium 9.3 8.4 - 10.4 mg/dL 04/11/2024 11:19 AM EDT [facility] Anion Gap 13 >=0 04/11/2024 11:19 AM EDT [facility] eGFR 66 >=60 mL/min/1. 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
--- OUTSIDE RECORDS SUMMARY | 2024-08-29 16:37 | XMS_ITS | Encounter Summary ---
Author Organization [facility] Address [address] [place] [address] Care Team Providers Care Merchandise Flow Manager Name Role Phone Uday Sheehan Primary Care Provider [phone] Encounter Details Date Type Department Care Team (Late st Contact Info) Description 05/27/2024 Lab Requisition [facility] [address] [place] [address] Salo Whyte MD [address] [place] [address] Acute and chronic respiratory failure with hypoxia [...] this encounter Procedures * Due to [place] state law, this organization might not be sharing negative HIV tests. Procedure Name Priority Date/Time Associated Diagnosis Comments CBC AUTO DIFFERENTIAL Routine 05/27/2024 10:09 AM EST Acute and chronic respiratory failure with hypoxia (HCC) No diagnosis COMPREHENSIVE METABOLIC PANEL Routine 05/27/2024 10:09 AM EST Acute and chronic respiratory failure with hypoxia (HCC) No diagnosis documented in this encounter Results * Due to [place] state law, this organization might not be sharing negative HIV tests. * (ABNORMAL) CBC Auto Differential (05/27/2024 10:09 AM EST) WBC 6.1 4.8 - 10.8 10*3/uL 05/27/2024 10:58 AM EST [facility] RBC 3.05(L) 4.70 - 6.10 10*6/uL 05/27/2024 10:58 AM [facility] Hemoglobin 8.4(L) 13.7 - 16.5 g/dL 05/27/2024 10:58 AM [facility] Hematocrit 26.6(L) 40.5 - 48.5 % 05/27/2024 10:58 AM [facility] MCV 87.2 80.0 - 94.0 fL 05/27/2024 10:58 AM [facility] MCH 27.5 26.0 - 34.0 pg 05/27/2024 10:58 AM [facility] MCHC 31.6 31.0 - 36.0 g/dL 05/27/2024 10:58 AM [facility] RDW 17.0(H) 12.0 - 15.0 % 05/27/2024 10:58 AM [facility] RDW Standard Deviation 54.3(H) 35.1 - 43.9 fL 05/27/2024 10:58 AM [facility] Platelets 147 140 - 440 10*3/uL 05/27/2024 10:58 AM [facility] MPV 10.1 9.4 - 12.4 fL 05/27/2024 10:58 AM [facility] Neutrophil % 57.4 50.0 - 75.0 % 05/27/2024 10:58 AM [facility] Immature Grans % 0.3 0.0 - 0.9 % 05/27/2024 10:58 AM [facility] Lymphocyte % 23.7 20.0 - 44.0 % 05/27/2024 10:58 AM EST [facility] Monocyte % 12.7 0.0 - 14.0 % 05/27/2024 10:58 AM EST [facility] Eosinophil % 5.6(H) 0.0 - 5.0 % 05/27/2024 10:58 AM EST [facility] Basophil % 0.3 0.0 - 2.0 % 05/27/2024 10:58 AM EST [facility] Neutrophil # 3.51 1.80 - 7.70 10*3/uL 05/27/2024 10:58 AM EST [facility] Immature Grans # <0.03 0.00 - 0.03 10*3/uL 05/27/2024 10:58 AM EST [facility] Lymphocyte # 1.50 1.00 - 4.75 10*3/uL 05/27/2024 10:58 AM EST [facility] Monocyte # 0.80 0.00 - 6.00 10*3/uL 05/27/2024 10:58 AM EST [facility] Eosinophil # 0.30 0.00 - 0.80 10*3/uL 05/27/2024 10:58 AM EST [facility] Basophil # <0.03 0.00 - 0.20 10*3/uL 05/27/2024 10:58 AM EST [facility] nRBC % 0.0 0 - 0 /100 WBCs 05/27/2024 10:58 AM EST [facility] nRBC # <0.01 0.00 - 0.13 10*3/uL 05/27/2024 10:58 AM EST [facility] Blood Structure of peripheral vein / Unknown Venipuncture / Unknown 05/27/2024 10:09 AM EST 05/27/2024 10:10 AM EST us Salo Whyte MD LAB BLOOD ORDERABLES Final Result [facility] [address] [place] [address] [address] [place] [address], [place] [phone] * (ABNORMAL) Comprehensive Metabolic Panel (05/27/2024 10:09 AM EST) NA 142 136 - 145 mmol/L 05/27/2024 11:11 AM EST [facility] K 3.9 3.5 - 5.1 mmol/L 05/27/2024 11:11 AM EST [facility] Cl 104 98 - 109 mmol/L 05/27/2024 11:11 AM EST [facility] CO2 30 22 - 32 mmol/L 05/27/2024 11:11 AM EST [facility] Anion Gap 12 >=0 05/27/2024 11:11 AM EST [facility] Glucose 99 60 - 99 mg/dL 05/27/2024 11:11 AM EST [facility] Creatinine 1.71(H) 0.50 - 1.12 mg/dL 05/27/2024 11:11 AM EST [facility] Calcium 9.4 8.4 - 10.4 mg/dL 05/27/2024 11:11 AM EST [facility] Total Protein 6.0(L) 6.6 - 8.7 g/dL 05/27/2024 11:11 AM EST [facility] Albumin 2.9(L) 3.5 - 5.0 g/dL 05/27/2024 11:11 AM EST [facility] Bilirubin, Total 0.3 0.2 - 1.2 mg/dL 05/27/2024 11:11 AM EST [facility] Alkaline Phosphatase 113 40 - 129 U/L 05/27/2024 11:11 AM EST [facility] AST 18 0 - 40 U/L 05/27/2024 11:11 AM EST [facility] ALT 12 <=41 U/L 05/27/2024 11:11 AM EST [facility] BUN 41(H) 8 - 23 mg/dL 05/27/2024 11:11 AM EST [facility] eGFR 39(L) >=60 mL/min/1. 73m2 05/27/2024 11:11 AM EST [facility] Comment:The estimated glomer [...] - 4.2 g/dL 05/27/2024 11:11 AM EST [facility] A/G Ratio 0.9(L) 1.5 - 3.0 05/27/2024 11:11 AM EST [facility] Blood Structure of peripheral vein / Unknown Venipuncture / Unknown 05/27/2024 10:09 AM EST 05/27/2024 10:10 AM EST Salo Whyte MD LAB BLOOD ORDERABLES Final Result Performing Organization Address City/State/[facility] Co de Phone Number [facility] [address] [facility] [address] [place] [address], documented in this encounter Visit Diagnoses Diagnosis Acute and chronic respiratory failure with hypoxia (HCC) No diagnosis documented in this encounter Additional Health Concerns Infection Onset Date Last Indicated Resolved Time 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
--- OUTSIDE RECORDS SUMMARY | 2024-08-29 16:37 | XMS_ITS | Encounter Summary ---
Author Organization [facility] Address [address] [place] [address] Care Team Providers Care Mold Car Pusher Name Role Phone Uday Sheehan Primary Care Provider [phone] Encounter Details Date Type Department Care Team (Late st Contact Info) Description 03/24/2024 Lab Requisition [facility] [address] [place] [address] Cecilio Bautista PA [address] [place] [address] Acute respiratory failure with hypoxia (HCC); No [...] this encounter Procedures * Due to [place] [employer] / [place] law, this organization might not be sharing negative HIV tests. Procedure Name Priority Date/Time Associated Diagnosis Comments CBC AUTO DIFFERENTIAL Routine 03/24/2024 7:34 AM EDT Acute respiratory failure with hypoxia (HCC) No diagnosis documented in this encounter Results * Due to [place] [employer] / [place] law, this organization might not be sharing negative HIV tests. * (ABNORMAL) CBC Auto Differential (03/24/2024 7:34 AM EDT) [facility] WBC 9.2 4.8 - 10.8 10*3/uL 03/24/2024 10:37 AM EDT [facility] RBC 2.51(L) 4.70 - 6.10 10*6/uL 03/24/2024 10:37 AM EDT [facility] Hemoglobin 7.0(L) 13.7 - 16.5 g/dL 03/24/2024 10:37 AM EDT [facility] Hematocrit 22.5(L) 40.5 - 48.5 % 03/24/2024 10:37 AM EDT [facility] MCV 89.6 80.0 - 94.0 fL 03/24/2024 10:37 AM EDT [facility] MCH 27.9 26.0 - 34.0 pg 03/24/2024 10:37 AM EDT [facility] MCHC 31.1 31.0 - 36.0 g/dL 03/24/2024 10:37 AM EDT [facility] RDW 16.0(H) 12.0 - 15.0 % 03/24/2024 10:37 AM EDT [facility] RDW Standard Deviation 51.7(H) 35.1 - 43.9 fL 03/24/2024 10:37 AM EDT [facility] Platelets 186 140 - 440 10*3/uL 03/24/2024 10:37 AM EDT [facility] MPV 10.3 9.4 - 12.4 fL 03/24/2024 10:37 AM EDT [facility] Neutrophil % 59.1 50.0 - 75.0 % 03/24/2024 10:37 AM EDT [facility] Immature Grans % 0.3 0.0 - 0.9 % 03/24/2024 10:37 AM EDT [facility] Lymphocyte % 19.6(L) 20.0 - 44.0 % 03/24/2024 10:37 AM EDT [facility] Monocyte % 15.5(H) 0.0 - 14.0 % 03/24/2024 10:37 AM EDT [facility] Eosinophil % 4.8 0.0 - 5.0 % 03/24/2024 10:37 AM EDT [facility] Basophil % 0.7 0.0 - 2.0 % 03/24/2024 10:37 AM EDT [facility] Neutrophil # 5.45 1.80 - 7.70 10*3/uL 03/24/2024 10:37 AM EDT [facility] Immature Grans # 0.03 0.00 - 0.03 10*3/uL 03/24/2024 10:37 AM EDT [facility] Lymphocyte # 1.80 1.00 - 4.75 10*3/uL 03/24/2024 10:37 AM EDT [facility] Monocyte # 1.40 0.00 - 6.00 10*3/uL 03/24/2024 10:37 AM EDT [facility] Eosinophil # 0.40 0.00 - 0.80 10*3/uL 03/24/2024 10:37 AM EDT [facility] Basophil # 0.10 0.00 - 0.20 10*3/uL 03/24/2024 10:37 AM EDT [facility] nRBC % 0.0 0 - 0 /100 WBCs 03/24/2024 10:37 AM EDT [facility] nRBC # <0.01 0.00 - 0.13 10*3/uL 03/24/2024 10:37 AM EDT [facility] Blood Structure of peripheral vein / Unknown Venipuncture / Unknown 03/24/2024 7:34 AM EDT 03/24/2024 10:31 AM EDT us Cecilio ZHU LAB BLOOD ORDERABLES Final R esult [facility] [address] [place] [address] [address] [place] [address], [place] [phone] documented in this encounter Visit Diagnoses Diagnosis [...] documented as of this encounter Care Teams Mold Car Pusher Relationship Specialty Start Date End Date Uday Sheehan [address] [place] [address] dr Donna [place], [place]C [address] PCP - General Internal Medicine 03/27/24 documented as of this encounter
--- OUTSIDE RECORDS SUMMARY | 2024-08-29 16:37 | XMS_ITS | Encounter Summary ---
Author Organization [facility] Address [address] [place] [address] Care Team Providers Care Doll Eye Setter Name Role Phone Uday Sheehan Primary Care Provider [phone] Encounter Details Date Type Department Care Team (Late st Contact Info) Description 05/21/2024 Orders Only [facility] Interventional Radiology [address] [place] [phone] Cedric Blank MD [address] [place] [address] Social History Tobacco Use Types Packs/Day Years [...] documented as of this encounter Care Teams Doll Eye Setter Relationship Specialty Start Date End Date Uday Sheehan [address] [place] [address] [place] [address] PCP - General Internal Medicine 03/27/24 documented as of this encounter
--- OUTSIDE RECORDS SUMMARY | 2024-08-29 16:37 | XMS_ITS | Encounter Summary ---
Author Organization [facility] Address [address] [place] [id number] Care Team Providers Care Service Loss Control Consultant Name Role Phone Uday Sheehan Primary Care Provider Encounter Details Date Type Department Care Team (Late st Contact Info) Description 04/15/2024 Lab Requisition [facility] [address] [place] [address] Salo Whyte MD [address] [place] [address] Acute respiratory failure, unspecified whether with hypoxia [...] - 10.8 10*3/uL 04/15/2024 12:45 PM EDT [facility] RBC 2.94(L) 4.70 - 6.10 10*6/uL 04/15/2024 12:45 PM EDT [facility] Hemoglobin 8.1(L) 13.7 - 16.5 g/dL 04/15/2024 12:45 PM EDT [facility] Hematocrit 26.2(L) 40.5 - 48.5 % 04/15/2024 12:45 PM EDT [facility] MCV 89.1 80.0 - 94.0 fL 04/15/2024 12:45 PM EDT [facility] MCH 27.6 26.0 - 34.0 pg 04/15/2024 12:45 PM EDT [facility] MCHC 30.9(L) 31.0 - 36.0 g/dL 04/15/2024 12:45 PM EDT [facility] RDW 17.3(H) 12.0 - 15.0 % 04/15/2024 12:45 PM EDT [facility] RDW Standard Deviation 55.5(H) 35.1 - 43.9 fL 04/15/2024 12:45 PM EDT [facility] Platelets 216 140 - 440 10*3/uL 04/15/2024 12:45 PM EDT [facility] MPV 10.4 9.4 - 12.4 fL 04/15/2024 12:45 PM EDT [facility] Neutrophil % 60.4 50.0 - 75.0 % 04/15/2024 12:45 PM EDT [facility] Immature Grans % 0.3 0.0 - 0.9 % 04/15/2024 12:45 PM EDT [facility] Lymphocyte % 21.7 20.0 - 44.0 % 04/15/2024 12:45 PM EDT [facility] Monocyte % 12.0 0.0 - 14.0 % 04/15/2024 12:45 PM EDT [facility] Eosinophil % 5.1(H) 0.0 - 5.0 % 04/15/2024 12:45 PM EDT [facility] Basophil % 0.5 0.0 - 2.0 % 04/15/2024 12:45 PM EDT [facility] Neutrophil # 3.88 1.80 - 7.70 10*3/uL 04/15/2024 12:45 PM EDT [facility] Immature Grans # <0.03 0.00 - 0.03 10*3/uL 04/15/2024 12:45 PM EDT [facility] Lymphocyte # 1.40 1.00 - 4.75 10*3/uL 04/15/2024 12:45 PM EDT [facility] Monocyte # 0.80 0.00 - 6.00 10*3/uL 04/15/2024 12:45 PM EDT [facility] Eosinophil # 0.30 0.00 - 0.80 10*3/uL 04/15/2024 12:45 PM EDT [facility] Basophil # <0.03 0.00 - 0.20 10*3/uL 04/15/2024 12:45 PM EDT [facility] nRBC % 0.0 0 - 0 /100 WBCs 04/15/2024 12:45 PM EDT [facility] nRBC # <0.01 0.00 - 0.13 10*3/uL 04/15/2024 12:45 PM EDT [facility] Blood Structure of peripheral vein / Unknown Venipuncture / Unknown 04/15/2024 12:05 PM EDT 04/15/2024 12:05 PM EDT us Salo Whyte MD LAB BLOOD ORDERABLES Final Result Performing Organization Address [facility]/ZIP Co de Phone Number [facility] [address] [address], [place] [phone] * N-terminal ProBrain Natriuretic Peptide - [facility]/[place] Only (04/15/2024 12:05 PM EDT) Pro-B-Type Natriuretic Peptide 457 <=1,800 pg/mL 04/15/2024 12:51 PM EDT [facility] Comment: RULE IN CHF >/= [...] Final Result Performing Organization Address [facility] Co de Phone Number [facility] [address] [address], [place] [phone] * (ABNORMAL) Comprehensive Metabolic Panel (04/15/2024 12:05 PM EDT) NA 140 136 - 145 mmol/L 04/15/2024 12:59 PM EDT [facility] K 4.1 3.5 - 5.1 mmol/L 04/15/2024 12:59 PM EDT [facility] Cl 97(L) 98 - 109 mmol/L 04/15/2024 12:59 PM EDT [facility] CO2 33(H) 22 - 32 mmol/L 04/15/2024 12:59 PM EDT [facility] Anion Gap 14 >=0 04/15/2024 12:59 PM EDT [facility] Glucose 94 60 - 99 mg/dL 04/15/2024 12:59 PM EDT [facility] Creatinine 1.13(H) 0.50 - 1.12 mg/dL 04/15/2024 12:59 PM EDT [facility] Calcium 9.5 8.4 - 10.4 mg/dL 04/15/2024 12:59 PM EDT [facility] Total Protein 6.6 6.6 - 8.7 g/dL 04/15/2024 12:59 PM EDT [facility] Albumin 3.1(L) 3.5 - 5.0 g/dL 04/15/2024 12:59 PM EDT [facility] Bilirubin, Total 0.3 0.2 - 1.2 mg/dL 04/15/2024 12:59 PM EDT [facility] Alkaline Phosphatase 105 40 - 129 U/L 04/15/2024 12:59 PM EDT [facility] AST 29 0 - 40 U/L 04/15/2024 12:59 PM EDT [facility] ALT 25 <=41 U/L 04/15/2024 12:59 PM T [facility] BUN 41(H) 8 - 23 mg/dL 04/15/2024 12:59 PM EDT [facility] eGFR 64 >=60 mL/min/1. 73m2 04/15/2024 12:59 PM T [facility] Comment:The estimated glomer ular filtration [...] - 4.2 g/dL 04/15/2024 12:59 PM EDT [facility] A/G Ratio 0.9(L) 1.5 - 3.0 04/15/2024 12:59 PM EDT [facility] Blood Structure of peripheral vein / Unknown Venipuncture / Unknown 04/15/2024 12:05 PM EDT 04/15/2024 12:05 PM EDT us Salo Whyte MD LAB BLOOD ORDERABLES Final Result [facility] [address] [facility] [address] [place] [address], [place] [phone] documented in this encounter Visit Diagnoses Diagnosis Acute respiratory failure, unspecified whether with hypoxia or hypercapnia (HCC) No diagnosis documented in this encounter Additional Health Concerns Infection Onset Date Last Indicated Resolved Time 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
--- OUTSIDE RECORDS SUMMARY | 2024-08-29 16:37 | XMS_ITS | Encounter Summary ---
Author Organization [facility] Address [address] [place] [address] Care Team Providers Care Tow Driver Name Role Phone Uday Sheehan MD Primary Care Provider [phone] Encounter Details Date Type Department Care Team (Late st Contact Info) Description 06/05/2024 Lab Requisition [facility] [address] [place] [address] Natanael Rodney MD [address] [place] [address] [place] [address] Chronic kidney disease, [...] AM EST) WBC 7.2 4.8 - 10.8 K/[facility] LAB HEMETOLOGY METHOD 06/05/2024 11:10 AM EST [facility] RBC 2.70(L) 4.50 - 5.50 M/mcL LAB HEMETOLOGY METHOD 06/05/2024 11:10 AM [facility] Hemoglobin 7.3(L) 13.5 - 17.5 g/dL LAB HEMETOLOGY METHOD 06/05/2024 11:10 AM [facility] Hematocrit 23.8(L) 42.0 - 54.0 % LAB HEMETOLOGY METHOD 06/05/2024 11:10 AM [facility] MCV 87.8 79.0 - 98.0 FL LAB HEMETOLOGY METHOD 06/05/2024 11:10 AM [facility] MCH 26.9(L) 27.0 - 32.0 pcg LAB HEMETOLOGY METHOD 06/05/2024 11:10 AM [facility] MCHC 30.7(L) 32.0 - 37.0 g/dL LAB HEMETOLOGY METHOD 06/05/2024 11:10 AM [facility] RDW 16.7(H) 11.0 - 15.0 % LAB HEMETOLOGY METHOD 06/05/2024 11:10 AM [facility] Platelets 172 130 - 400 K/mcL LAB HEMETOLOGY METHOD 06/05/2024 11:10 AM [facility] MPV 10.1 7.0 - 11.0 [place] LAB HEMETOLOGY METHOD 06/05/2024 11:10 AM [facility] NRBC 0.0 <1.0 % LAB HEMETOLOGY METHOD 06/05/2024 11:10 AM [facility] NRBC Absolute 0.00 <0.10 K/mcL LAB HEMETOLOGY METHOD 06/05/2024 11:10 AM [facility] Blood Venous blood specimen / Unknown Venipuncture / Unknown 06/05/2024 8:53 AM EST 06/05/2024 10:47 AM EST us Natanael Rodney MD LAB BLOOD ORDERABLES Final Resu lt [facility] [address] [place] [address], documented in this encounter Visit Diagnoses Diagnosis Chronic kidney disease, unspecified Essential (primary) hypertension Unspecified essential hypertension Unspecified atrial fibrillation (CMS/HCC) documented in this encounter Additional Health Concerns Infection Onset Date Last Indicated Resolved Time ESBL 06/22/2024 06/22/2024 documented as of this encounter Care Teams Tow Driver Relationship Specialty Start Date End Date Uday Sheehan MD [address] [facility] [address] [place], [place] PCP - General General Education Instructor 12/19/16 documented as of this encounter
--- OUTSIDE RECORDS SUMMARY | 2024-08-29 16:37 | XMS_ITS | Referral Summary ---
Author Organization [facility] Address [address] [place] [address] Care Team Providers Care Body Technician/Painter Name Role Phone Uday Sheehan Primary Care Provider [phone] Allergies No known active allergies Medications acetaminophen [...] by mouth every 12 hours. 04/08/20 Active xrkab-vnls-IuKWP-c ktxho-nv-tei (VIDHYA WITH COLLAGEN) 7-7-1.5 gram powder in [...] WBC of 7.4. - [facility] (percutaneous endoscopic gastrostomy) status [...] consolidation LLL. O2 increased to 50% per MANAGER PRIMARY: plugging secretions but not clogged at that [...] consolidation LLL. O2 increased to 50% per MANAGER PRIMARY: plugging secretions but not clogged at that [...] Not on file Procedures * Due to [place] [employer] law, this organization might not be sharing [...] to Health Maintenance Results * Due to [place] [employer] law, this organization might not be sharing negative HIV tests. * (ABNORMAL) CBC Auto Differential (05/27/2024 10:09 AM EST) WBC 6.1 4.8 - 10.8 10*3/uL 05/27/2024 10:58 AM EST [facility] RBC 3.05(L) 4.70 - 6.10 10*6/uL 05/27/2024 10:58 AM EST [facility] Hemoglobin 8.4(L) 13.7 - 16.5 g/dL 05/27/2024 10:58 AM EST [facility] Hematocrit 26.6(L) 40.5 - 48.5 % 05/27/2024 10:58 AM EST [facility] MCV 87.2 80.0 - 94.0 fL 05/27/2024 10:58 AM EST [facility] MCH 27.5 26.0 - 34.0 pg 05/27/2024 10:58 AM EST [facility] MCHC 31.6 31.0 - 36.0 g/dL 05/27/2024 10:58 AM [facility] RDW 17.0(H) 12.0 - 15.0 % 05/27/2024 10:58 AM [facility] RDW Standard Deviation 54.3(H) 35.1 - 43.9 fL 05/27/2024 10:58 AM [facility] Platelets 147 140 - 440 10*3/uL 05/27/2024 10:58 AM [facility] MPV 10.1 9.4 - 12.4 fL 05/27/2024 10:58 AM [facility] Neutrophil % 57.4 50.0 - 75.0 % 05/27/2024 10:58 AM [facility] Immature Grans % 0.3 0.0 - 0.9 % 05/27/2024 10:58 AM [facility] Lymphocyte % 23.7 20.0 - 44.0 % 05/27/2024 10:58 AM [facility] Monocyte % 12.7 0.0 - 14.0 % 05/27/2024 10:58 AM [facility] Eosinophil % 5.6(H) 0.0 - 5.0 % 05/27/2024 10:58 AM [facility] Basophil % 0.3 0.0 - 2.0 % 05/27/2024 10:58 AM [facility] Neutrophil # 3.51 1.80 - 7.70 10*3/uL 05/27/2024 10:58 AM [facility] Immature Grans # <0.03 0.00 - 0.03 10*3/uL 05/27/2024 10:58 AM [facility] Lymphocyte # 1.50 1.00 - 4.75 10*3/uL 05/27/2024 10:58 AM [facility] Monocyte # 0.80 0.00 - 6.00 10*3/uL 05/27/2024 10:58 AM [facility] Eosinophil # 0.30 0.00 - 0.80 10*3/uL 05/27/2024 10:58 AM [facility] Basophil # <0.03 0.00 - 0.20 10*3/uL 05/27/2024 10:58 AM EST [facility] nRBC % 0.0 0 - 0 /100 WBCs 05/27/2024 10:58 AM EST [facility] nRBC # <0.01 0.00 - 0.13 10*3/uL 05/27/2024 10:58 AM EST [facility] Blood Structure of peripheral vein / Unknown Venipuncture / Unknown 05/27/2024 10:09 AM EST 05/27/2024 10:10 AM EST Salo Whyte MD LAB BLOOD ORDERABLES Final Result Performing Organization Address City/State/[facility] Co de Phone Number [facility] [address] [facility] [address] [place] [address], [place] [phone] * (ABNORMAL) Comprehensive Metabolic Panel (05/27/2024 10:09 AM EST) NA 142 136 - 145 mmol/L 05/27/2024 11:11 AM EST [facility] K 3.9 3.5 - 5.1 mmol/L 05/27/2024 11:11 AM EST [facility] Cl 104 98 - 109 mmol/L 05/27/2024 11:11 AM EST [facility] CO2 30 22 - 32 mmol/L 05/27/2024 11:11 AM EST [facility] Anion Gap 12 >=0 05/27/2024 11:11 AM EST [facility] Glucose 99 60 - 99 mg/dL 05/27/2024 11:11 AM EST [facility] Creatinine 1.71(H) 0.50 - 1.12 mg/dL 05/27/2024 11:11 AM EST [facility] Calcium 9.4 8.4 - 10.4 mg/dL 05/27/2024 11:11 AM EST [facility] Total Protein 6.0(L) 6.6 - 8.7 g/dL 05/27/2024 11:11 AM EST [facility] Albumin 2.9(L) 3.5 - 5.0 g/dL 05/27/2024 11:11 AM EST [facility] Bilirubin, Total 0.3 0.2 - 1.2 mg/dL 05/27/2024 11:11 AM EST [facility] Alkaline Phosphatase 113 40 - 129 U/L 05/27/2024 11:11 AM EST [facility] AST 18 0 - 40 U/L 05/27/2024 11:11 AM EST [facility] ALT 12 <=41 U/L 05/27/2024 11:11 AM EST [facility] BUN 41(H) 8 - 23 mg/dL 05/27/2024 11:11 AM EST [facility] eGFR 39(L) >=60 mL/min/1. 73m2 05/27/2024 11:11 AM EST [facility] Comment:The estimated glomer ular [...] - 4.2 g/dL 05/27/2024 11:11 AM EST [facility] A/G Ratio 0.9(L) 1.5 - 3.0 05/27/2024 11:11 AM EST [facility] Blood Structure of peripheral vein / Unknown Venipuncture / Unknown 05/27/2024 10:09 AM EST 05/27/2024 10:10 AM EST Salo Whyte MD LAB BLOOD ORDERABLES Final Result [facility] [address] [facility] [address] [place] [address], * Phosphorus (04/08/2024 5:21 AM EDT) Phosphorus 4.2 2.5 - 4.5 mg/dL 04/08/2024 5:46 AM EDT [facility] Blood Structure of peripheral vein / Unknown Venipuncture / Unknown 04/08/2024 5:21 AM EDT 04/08/2024 5:24 AM EDT Jori Longo NP LAB BLOOD ORDERABLES Fi nal Result Performing Organization Address [facility] Co de Phone Number [facility] [address] [place] [address], [place] from Last 3 Months or Most Recently Relevant to Health Maintenance Additional Health Concerns Infection Onset Date Last Indicated Multidrug resistant organisms MRSA 03/25/2024 05/07/[address] [place] [place] [address] MEDICARE Advance Directives Documents on File Type Date Recorded Patient Plate Cutter Expl anation Health Care Proxy 03/31/2024 10:53 [...] Atkinson Daughter Next of Kin Care Teams Body Technician/Painter Relationship Specialty Start Date End Date Uday Sheehan [address] [place] [address] dr Donna Thompson, ALEC [address] PCP - General Internal Medicine 03/27/24
--- OUTSIDE RECORDS SUMMARY | 2024-08-29 16:37 | XMS_ITS | Encounter Summary ---
[facility] Address [address] [place] [address] Care Team Providers Care Rehabilitation Aide Name Role Phone Uday Sheehan MD Primary Care Provider [phone] Encounter Details Date Type Department Care Team (Late st Contact Info) Description 06/21/2024 Lab Requisition [facility] [address] [place] [address] Pearl Garcia MD [address] [place] [address] Unspecified atrial fibrillation (CMS/HCC); Essential [...] mmol/L LAB CHEMISTRY METHOD 06/24/2024 12:29 PM [facility] Potassium 3.8 3.5 - 5.5 mmol/L LAB CHEMISTRY METHOD 06/24/2024 12:29 PM [facility] Chloride 114(H) 96 - 110 mmol/L LAB CHEMISTRY METHOD 06/24/2024 12:29 PM [facility] CO2 24 21 - 32 mmol/L LAB CHEMISTRY METHOD 06/24/2024 12:29 PM [facility] Anion Gap 8 3 - 11 LAB CHEMISTRY METHOD 06/24/2024 12:29 PM [facility] Glucose 99 70 - 100 mg/dL LAB CHEMISTRY METHOD 06/24/2024 12:29 PM [facility] BUN 59(H) 5 - 25 mg/dL LAB CHEMISTRY METHOD 06/24/2024 12:29 PM [facility] Creatinine 2.52(H) 0.70 - 1.30 mg/dL LAB CHEMISTRY METHOD 06/24/2024 12:29 PM [facility] eGFR 24(L) >=60 mL/min/1. 73m2 LAB CHEMISTRY METHOD 06/24/2024 12:29 PM [facility] Comment:Calculation based on the??Chronic Kidney Disease Epidemiology Collaboration (CKD-EPI) equation refit??without adjustment for race. BUN/Creatinine Ratio 23.4 LAB CHEMISTRY METHOD 06/24/2024 12:29 PM [facility] Calcium 9.2 8.5 - 10.5 mg/dL LAB CHEMISTRY METHOD 06/24/2024 12:29 PM [facility] AST (SGOT) 82(H) 10 - 42 unit/L LAB CHEMISTRY METHOD 06/24/2024 12:29 PM [facility] ALT (SGPT) 66(H) 10 - 60 unit/L LAB CHEMISTRY METHOD 06/24/2024 12:29 PM [facility] Alkaline Phosphatase 113 42 - 121 unit/L LAB CHEMISTRY METHOD 06/24/2024 12:29 PM [facility] Total Protein 6.5 6.0 - 8.0 g/dL LAB CHEMISTRY METHOD 06/24/2024 12:29 PM [facility] Albumin 1.7(L) 3.2 - 5.0 g/dL LAB CHEMISTRY METHOD 06/24/2024 12:29 PM [facility] Total Bilirubin 0.5 0.0 - 1.4 mg/dL LAB CHEMISTRY METHOD 06/24/2024 12:29 PM [facility] Blood Venous blood specimen / Unknown Venipuncture / Unknown 06/24/2024 6:49 AM EST 06/24/2024 10:18 AM EST us Pearl Garcia MD LAB BLOOD ORDERABLES Final Resul t [facility] [address] [place] [address], * (ABNORMAL) Complete blood count (06/24/2024 6:49 AM EST) WBC 10.9(H) 4.8 - 10.8 K/[facility] LAB HEMETOLOGY METHOD 06/24/2024 10:45 AM [facility] RBC 3.00(L) 4.50 - 5.50 M/[facility] LAB HEMETOLOGY METHOD 06/24/2024 10:45 AM [facility] Hemoglobin 7.6(L) 13.5 - 17.5 g/dL LAB HEMETOLOGY METHOD 06/24/2024 10:45 AM [facility] Hematocrit 26.8(L) 42.0 - 54.0 % LAB HEMETOLOGY METHOD 06/24/2024 10:45 AM [facility] MCV 90.5 79.0 - 98.0 FL LAB HEMETOLOGY METHOD 06/24/2024 10:45 AM [facility] MCH 25.7(L) 27.0 - 32.0 pcg LAB HEMETOLOGY METHOD 06/24/2024 10:45 AM EST [facility] MCHC 28.4(L) 32.0 - 37.0 g/dL LAB HEMETOLOGY METHOD 06/24/2024 10:45 AM [facility] RDW 17.5(H) 11.0 - 15.0 % LAB HEMETOLOGY METHOD 06/24/2024 10:45 AM EST [facility] Platelets 239 130 - 400 K/mcL LAB HEMETOLOGY METHOD 06/24/2024 10:45 AM [facility] MPV 9.8 7.0 - 11.0 FL LAB HEMETOLOGY METHOD 06/24/2024 10:45 AM [facility] NRBC 0.0 <1.0 % LAB HEMETOLOGY METHOD 06/24/2024 10:45 AM [facility] NRBC Absolute 0.00 <0.10 K/mcL LAB HEMETOLOGY METHOD 06/24/2024 10:45 AM [facility] Blood Venous blood specimen / Unknown Venipuncture / Unknown 06/24/2024 6:49 AM EST 06/24/2024 10:28 AM EST Pearl Garcia MD LAB BLOOD ORDERABLES Final Resul t [facility] [address] [place] [address], documented in this encounter Visit Diagnoses Diagnosis Unspecified atrial fibrillation (CMS/HCC) Essential (primary) hypertension Unspecified essential hypertension documented in this encounter Additional Health Concerns Infection Onset Date Last Indicated Resolved Time ESBL 06/22/2024 06/22/2024 documented as of this encounter Care Teams Rehabilitation Aide Relationship Specialty Start Date End Date Uday Sheehan MD [address] Donna [place] PCP - General Senior Environmental Practice Leader 12/19/16 documented as of this encounter
--- OUTSIDE RECORDS SUMMARY | 2024-08-29 16:37 | XMS_ITS | Encounter Summary ---
Author Organization [facility] Address [address] [place] [address] Care Team Providers Care Healthcare Interpreter Name Role Phone Uday Sheehan Primary Care Provider [phone] Encounter Details Date Type Department Care Team (Late st Contact Info) Description 04/09/2024 Lab Requisition [facility] [address] [place] [address] Salo Whyte MD [address] [place] [address] Acute respiratory failure with hypoxia (HCC); No [...] of this encounter Procedures * Due to [place] state law, this organization might not be [...] in this encounter Results * Due to [place] state law, this organization might not be sharing negative HIV tests. * N-terminal ProBrain Natriuretic Peptide - [facility]/[place] Only (04/09/2024 8:51 AM EDT) Pro-B-Type Natriuretic Peptide 523 <=1,800 pg/mL 04/09/2024 9:31 AM EDT [facility] Comment: RULE IN CHF >/= [...] BLOOD ORDERABLES Final Result Performing Organization Address [facility]/ZIP Co de Phone Number [facility] [address] [address], [place] [phone] * Vitamin B12 (04/09/2024 8:51 AM EDT) Vitamin B12 636 232 - 1,245 pg/mL 04/09/2024 9:42 AM EDT [facility] Blood Structure of peripheral vein / Unknown Venipuncture / Unknown 04/09/2024 8:51 AM EDT 04/09/2024 8:52 AM EDT us Salo Whyte MD LAB BLOOD ORDERABLES Final Result Performing Organization Address [facility] Co de Phone Number [facility] [address] [address], [place] [phone] * (ABNORMAL) CBC Auto Differential (04/09/2024 8:51 AM EDT) WBC 8.3 4.8 - 10.8 10*3/uL 04/09/2024 9:14 AM EDT [facility] RBC 2.86(L) 4.70 - 6.10 10*6/uL 04/09/2024 9:14 AM EDT [facility] Hemoglobin 8.0(L) 13.7 - 16.5 g/dL 04/09/2024 9:14 AM EDT [facility] Hematocrit 25.7(L) 40.5 - 48.5 % 04/09/2024 9:14 AM EDT [facility] MCV 89.9 80.0 - 94.0 fL 04/09/2024 9:14 AM EDT [facility] MCH 28.0 26.0 - 34.0 pg 04/09/2024 9:14 AM EDT [facility] MCHC 31.1 31.0 - 36.0 g/dL 04/09/2024 9:14 AM EDT [facility] RDW 17.2(H) 12.0 - 15.0 % 04/09/2024 9:14 AM EDT [facility] RDW Standard Deviation 54.8(H) 35.1 - 43.9 fL 04/09/2024 9:14 AM EDT [facility] Platelets 228 140 - 440 10*3/uL 04/09/2024 9:14 AM EDT [facility] MPV 10.8 9.4 - 12.4 fL 04/09/2024 9:14 AM EDT [facility] Neutrophil % 58.2 50.0 - 75.0 % 04/09/2024 9:14 AM EDT [facility] Immature Grans % 0.7 0.0 - 0.9 % 04/09/2024 9:14 AM EDT [facility] Lymphocyte % 22.1 20.0 - 44.0 % 04/09/2024 9:14 AM EDT [facility] Monocyte % 11.3 0.0 - 14.0 % 04/09/2024 9:14 AM EDT [facility] Eosinophil % 7.1(H) 0.0 - 5.0 % 04/09/2024 9:14 AM EDT [facility] Basophil % 0.6 0.0 - 2.0 % 04/09/2024 9:14 AM EDT [facility] Neutrophil # 4.85 1.80 - 7.70 10*3/uL 04/09/2024 9:14 AM EDT [facility] Immature Grans # 0.06(H) 0.00 - 0.03 10*3/uL 04/09/2024 9:14 AM EDT [facility] Lymphocyte # 1.80 1.00 - 4.75 10*3/uL 04/09/2024 9:14 AM EDT [facility] Monocyte # 0.90 0.00 - 6.00 10*3/uL 04/09/2024 9:14 AM EDT [facility] Eosinophil # 0.60 0.00 - 0.80 10*3/uL 04/09/2024 9:14 AM EDT [facility] Basophil # 0.10 0.00 - 0.20 10*3/uL 04/09/2024 9:14 AM EDT [facility] nRBC % 0.0 0 - 0 /100 WBCs 04/09/2024 9:14 AM EDT [facility] nRBC # <0.01 0.00 - 0.13 10*3/uL 04/09/2024 9:14 AM EDT [facility] Blood Structure of peripheral vein / Unknown Venipuncture / Unknown 04/09/2024 8:51 AM EDT 04/09/2024 8:52 AM EDT us Salo Whyte MD LAB BLOOD ORDERABLES Final Result Performing Organization Address [facility]/ZIP Co de Phone Number [facility] [address] [address], [place] [phone] * (ABNORMAL) TSH (04/09/2024 8:51 AM EDT) TSH 10.800(H) 0.270 - 4.200 uIU/mL 04/09/2024 9:34 AM EDT [facility] Blood Structure of peripheral vein / Unknown Venipuncture / Unknown 04/09/2024 8:51 AM EDT 04/09/2024 8:52 AM EDT us Salo Whyte MD LAB BLOOD ORDERABLES Final Result Performing Organization Address City/[facility]/ZIP Co de Phone Number [facility] [address] [address], [place] [phone] * T4, Free (04/09/2024 8:51 AM EDT) Free T4 1.40 0.80 - 1.80 ng/dL 04/09/2024 9:34 AM EDT [facility] Comment: Females: (ng/dL) First [...] BLOOD ORDERABLES Final Result Performing Organization Address [facility]/ZIP Co de Phone Number [facility] [address] [address], [place] [phone] * Magnesium (04/09/2024 8:51 AM EDT) MG 2.5 1.5 - 2.5 mg/dL 04/09/2024 9:34 AM EDT [facility] Blood Structure of peripheral vein / Unknown Venipuncture / Unknown 04/09/2024 8:51 AM EDT 04/09/2024 8:52 AM EDT Salo Whyte MD LAB BLOOD ORDERABLES Final Result Performing Organization Address [facility]/ZIP Co de Phone Number [facility] [address] [address], [place] [phone] * Hemoglobin A1c (04/09/2024 8:51 AM EDT) Hemoglobin A1c 5.6 4.0 - 5.7 % 04/09/2024 9:25 AM EDT [facility] Estimated Average Glucose 114 mg/dL 04/09/2024 9:25 AM EDT [facility] Blood Structure of peripheral vein / Unknown Venipuncture / Unknown 04/09/2024 8:51 AM EDT 04/09/2024 8:52 AM EDT us Salo Whyte MD LAB BLOOD ORDERABLES Final Result Performing Organization Address [facility] Co de Phone Number [facility] [address] [address], [place] [phone] * Ammonia (04/09/2024 8:51 AM EDT) Ammonia 20 16 - 60 umol/L 04/09/2024 9:24 AM EDT [facility] Blood Structure of peripheral vein / Unknown Venipuncture / Unknown 04/09/2024 8:51 AM EDT 04/09/2024 8:52 AM EDT Salo Whyte MD LAB BLOOD ORDERABLES Final Result Performing Organization Address [facility] de Phone Number [facility] [address] [address], [place] [phone] * (ABNORMAL) Comprehensive Metabolic Panel (04/09/2024 8:51 AM EDT) NA 144 136 - 145 mmol/L 04/09/2024 9:34 AM EDT [facility] K 4.0 3.5 - 5.1 mmol/L 04/09/2024 9:34 AM EDT [facility] Cl 104 98 - 109 mmol/L 04/09/2024 9:34 AM EDT [facility] CO2 32 22 - 32 mmol/L 04/09/2024 9:34 AM EDT [facility] Anion Gap 12 >=0 04/09/2024 9:34 AM EDT [facility] Glucose 96 60 - 99 mg/dL 04/09/2024 9:34 AM EDT [facility] Creatinine 1.30(H) 0.50 - 1.12 mg/dL 04/09/2024 9:34 AM EDT [facility] Calcium 9.7 8.4 - 10.4 mg/dL 04/09/2024 9:34 AM EDT [facility] Total Protein 6.8 6.6 - 8.7 g/dL 04/09/2024 9:34 AM EDT [facility] Albumin 3.1(L) 3.5 - 5.0 g/dL 04/09/2024 9:34 AM EDT [facility] Bilirubin, Total 0.2 0.2 - 1.2 mg/dL 04/09/2024 9:34 AM EDT [facility] Alkaline Phosphatase 85 40 - 129 U/L 04/09/2024 9:34 AM EDT [facility] AST 40 0 - 40 U/L 04/09/2024 9:34 AM [facility] ALT 28 <=41 U/L 04/09/2024 9:34 AM T [facility] BUN 56(H) 8 - 23 mg/dL 04/09/2024 9:34 AM [facility] eGFR 54(L) >=60 mL/min/1. 73m2 04/09/2024 9:34 AM EDT [facility] Comment:The estimated glomer ular [...] - 4.2 g/dL 04/09/2024 9:34 AM EDT [facility] A/G Ratio 0.8(L) 1.5 - 3.0 04/09/2024 9:34 AM EDT [facility] Blood Structure of peripheral vein / Unknown Venipuncture / Unknown 04/09/2024 8:51 AM EDT 04/09/2024 8:52 AM EDT Salo Whyte MD LAB BLOOD ORDERABLES Final Result Performing Organization Address City/State/[facility] Co de Phone Number [facility] [address] [place] [address], documented in this encounter Visit Diagnoses Diagnosis Acute respiratory failure with hypoxia (HCC) No diagnosis documented in this encounter Additional Health Concerns Infection Onset Date Last Indicated Resolved Time Multidrug resistant organisms MRSA 03/25/20242023 documented as of this encounter Care Teams Healthcare Interpreter Relationship Specialty Start Date End Date Uday Sheehan [address] [place] [address] [place] [address] PCP - General Internal Medicine 03/27/24 documented as of this encounter
--- OUTSIDE RECORDS SUMMARY | 2024-08-29 16:37 | XMS_ITS | Encounter Summary ---
Author Organization [facility] Address [address] [place] [address] Care Team Providers Care Sheep Or Calf Grader Name Role Phone Uday Sheehan Primary Care Provider Encounter Details Date Type Department Care Team (Late st Contact Info) Description 05/20/2024 Lab Requisition [facility] Lab [address] [place] [address] Salo Whyte MD [address] [place] [address] Acute and chronic respiratory failure with hypoxia [...] of this encounter Procedures * Due to [place] state law, this organization might not be sharing negative HIV tests. Procedure Name Priority Date/Time Associated Diagnosis Comments CBC AUTO DIFFERENTIAL Routine 05/20/2024 10:25 AM EST Acute and chronic respiratory failure with hypoxia (HCC) No diagnosis COMPREHENSIVE METABOLIC PANEL Routine 05/20/2024 10:25 AM EST Acute and chronic respiratory failure with hypoxia (HCC) No diagnosis documented in this encounter Results * Due to [place] state law, this organization might not be sharing negative HIV tests. * (ABNORMAL) CBC Auto Differential (05/20/2024 10:25 AM EST) WBC 5.4 4.8 - 10.8 10*3/uL 05/20/2024 10:48 AM EST [facility] RBC 3.05(L) 4.70 - 6.10 10*6/uL 05/20/2024 10:48 AM EST [facility] Hemoglobin 8.3(L) 13.7 - 16.5 g/dL 05/20/2024 10:48 AM EST [facility] Hematocrit 26.4(L) 40.5 - 48.5 % 05/20/2024 10:48 AM EST [facility] MCV 86.6 80.0 - 94.0 fL 05/20/2024 10:48 AM EST [facility] MCH 27.2 26.0 - 34.0 pg 05/20/2024 10:48 AM EST [facility] MCHC 31.4 31.0 - 36.0 g/dL 05/20/2024 10:48 AM [facility] RDW 16.9(H) 12.0 - 15.0 % 05/20/2024 10:48 AM EST [facility] RDW Standard Deviation 53.1(H) 35.1 - 43.9 fL 05/20/2024 10:48 AM EST [facility] Platelets 141 140 - 440 10*3/uL 05/20/2024 10:48 AM EST [facility] MPV 10.0 9.4 - 12.4 fL 05/20/2024 10:48 AM EST [facility] Neutrophil % 50.4 50.0 - 75.0 % 05/20/2024 10:48 AM EST [facility] Immature Grans % 0.2 0.0 - 0.9 % 05/20/2024 10:48 AM EST [facility] Lymphocyte % 29.8 20.0 - 44.0 % 05/20/2024 10:48 AM EST [facility] Monocyte % 13.1 0.0 - 14.0 % 05/20/2024 10:48 AM EST [facility] Eosinophil % 5.9(H) 0.0 - 5.0 % 05/20/2024 10:48 AM EST [facility] Basophil % 0.6 0.0 - 2.0 % 05/20/2024 10:48 AM EST [facility] Neutrophil # 2.74 1.80 - 7.70 10*3/uL 05/20/2024 10:48 AM EST [facility] Immature Grans # <0.03 0.00 - 0.03 10*3/uL 05/20/2024 10:48 AM EST [facility] Lymphocyte # 1.60 1.00 - 4.75 10*3/uL 05/20/2024 10:48 AM EST [facility] Monocyte # 0.70 0.00 - 6.00 10*3/uL 05/20/2024 10:48 AM EST [facility] Eosinophil # 0.30 0.00 - 0.80 10*3/uL 05/20/2024 10:48 AM EST [facility] Basophil # <0.03 0.00 - 0.20 10*3/uL 05/20/2024 10:48 AM EST [facility] nRBC % 0.0 0 - 0 /100 WBCs 05/20/2024 10:48 AM EST [facility] nRBC # <0.01 0.00 - 0.13 10*3/uL 05/20/2024 10:48 AM EST [facility] Blood Structure of peripheral vein / Unknown Venipuncture / Unknown 05/20/2024 10:25 AM EST 05/20/2024 10:25 AM EST us Salo Whyte MD LAB BLOOD ORDERABLES Final Result [facility] [address] [place] [address] [address] [place] [address], [place] [phone] * (ABNORMAL) Comprehensive Metabolic Panel (05/20/2024 10:25 AM EST) NA 141 136 - 145 mmol/L 05/20/2024 11:11 AM EST [facility] K 3.7 3.5 - 5.1 mmol/L 05/20/2024 11:11 AM EST [facility] Cl 102 98 - 109 mmol/L 05/20/2024 11:11 AM EST [facility] CO2 27 22 - 32 mmol/L 05/20/2024 11:11 AM EST [facility] Anion Gap 16 >=0 05/20/2024 11:11 AM EST [facility] Glucose 91 60 - 99 mg/dL 05/20/2024 11:11 AM EST [facility] Creatinine 1.68(H) 0.50 - 1.12 mg/dL 05/20/2024 11:11 AM EST [facility] Calcium 9.4 8.4 - 10.4 mg/dL 05/20/2024 11:11 AM EST [facility] Total Protein 6.4(L) 6.6 - 8.7 g/dL 05/20/2024 11:11 AM EST [facility] Albumin 3.1(L) 3.5 - 5.0 g/dL 05/20/2024 11:11 AM EST [facility] Bilirubin, Total 0.2 0.2 - 1.2 mg/dL 05/20/2024 11:11 AM EST [facility] Alkaline Phosphatase 102 40 - 129 U/L 05/20/2024 11:11 AM EST [facility] AST 23 0 - 40 U/L 05/20/2024 11:11 AM EST [facility] ALT 17 <=41 U/L 05/20/2024 11:11 AM EST [facility] BUN 35(H) 8 - 23 mg/dL 05/20/2024 11:11 AM EST [facility] eGFR 40(L) >=60 mL/min/1. 73m2 05/20/2024 11:11 AM EST [facility] Comment:The estimated glomer ular filtration [...] - 4.2 g/dL 05/20/2024 11:11 AM EST [facility] A/G Ratio 0.9(L) 1.5 - 3.0 05/20/2024 11:11 AM EST [facility] Blood Structure of peripheral vein / Unknown Venipuncture / Unknown 05/20/2024 10:25 AM EST 05/20/2024 10:25 AM EST Salo Whyte MD LAB BLOOD ORDERABLES Final Result Performing Organization Address City/State/[facility] Co de Phone Number [facility] [address] [facility] [address] [place] [address], documented in this encounter Visit Diagnoses Diagnosis Acute and chronic respiratory failure with hypoxia (HCC) No diagnosis documented in this encounter Additional Health Concerns Infection Onset Date Last Indicated Resolved Time Multidrug resistant organisms MRSA 03/25/20242023 documented as of this encounter Care Teams Sheep Or Calf Grader Relationship Specialty Start Date End Date Uday Sheehan: [phone] [address] [place] [address] [place] [address] PCP - General Internal Medicine 03/27/24 documented as of this encounter
--- OUTSIDE RECORDS SUMMARY | 2024-08-29 16:37 | XMS_ITS | Encounter Summary ---
Author Organization [facility] Address [address] [place] [address] Care Team Providers Care Autism Specialist Name Role Phone Uday Sheehan MD Primary Care Provider Encounter Details Date Type Department Care Team (Late st Contact Info) Description 06/11/2024 Lab Requisition [facility] - Main Lab [address] [place] [address] Zak Zuluaga MD [address] [place] [address] Anemia, unspecified Social History Tobacco Use Types [...] LAB CHEMISTRY METHOD 06/11/2024 10:54 AM EST [facility] Potassium 4.4 3.5 - 5.5 mmol/L LAB CHEMISTRY METHOD 06/11/2024 10:54 AM [facility] Chloride 112(H) 96 - 110 mmol/L LAB CHEMISTRY METHOD 06/11/2024 10:54 AM [facility] CO2 23 21 - 32 mmol/L LAB CHEMISTRY METHOD 06/11/2024 10:54 AM [facility] Anion Gap 10 3 - 11 LAB CHEMISTRY METHOD 06/11/2024 10:54 AM [facility] Glucose 88 70 - 100 mg/dL LAB CHEMISTRY METHOD 06/11/2024 10:54 AM [facility] BUN 42(H) 5 - 25 mg/dL LAB CHEMISTRY METHOD 06/11/2024 10:54 AM [facility] Creatinine 2.55(H) 0.70 - 1.30 mg/dL LAB CHEMISTRY METHOD 06/11/2024 10:54 AM [facility] eGFR 24(L) >=60 mL/min/1. 73m2 LAB CHEMISTRY METHOD 06/11/2024 10:54 AM [facility] Comment:Calculation based on the??Chronic Kidney Disease Epidemiology Collaboration (CKD-EPI) equation refit??without adjustment for race. BUN/Creatinine Ratio 16.5 LAB CHEMISTRY METHOD 06/11/2024 10:54 AM [facility] Calcium 7.9(L) 8.5 - 10.5 mg/dL LAB CHEMISTRY METHOD 06/11/2024 10:54 AM [facility] Blood Venous blood specimen / Unknown Venipuncture / Unknown 06/11/2024 8:24 AM EST 06/11/2024 9:58 AM EST us Zak Zuluaga MD LAB BLOOD ORDERABLES Final Resul t [facility] [address] [place] [address], * (ABNORMAL) Complete blood count (06/11/2024 8:24 AM EST) [facility] WBC 5.5 4.8 - 10.8 K/mcL LAB HEMETOLOGY METHOD 06/11/2024 10:35 AM [facility] RBC 2.90(L) 4.50 - 5.50 M/mcL LAB HEMETOLOGY METHOD 06/11/2024 10:35 AM [facility] Hemoglobin 7.7(L) 13.5 - 17.5 g/dL LAB HEMETOLOGY METHOD 06/11/2024 10:35 AM [facility] Hematocrit 25.5(L) 42.0 - 54.0 % LAB HEMETOLOGY METHOD 06/11/2024 10:35 AM [facility] MCV 87.6 79.0 - 98.0 FL LAB HEMETOLOGY METHOD 06/11/2024 10:35 AM [facility] MCH 26.5(L) 27.0 - 32.0 pcg LAB HEMETOLOGY METHOD 06/11/2024 10:35 AM [facility] MCHC 30.2(L) 32.0 - 37.0 g/dL LAB HEMETOLOGY METHOD 06/11/2024 10:35 AM [facility] RDW 16.7(H) 11.0 - 15.0 % LAB HEMETOLOGY METHOD 06/11/2024 10:35 AM [facility] Platelets 176 130 - 400 K/mcL LAB HEMETOLOGY METHOD 06/11/2024 10:35 AM [facility] MPV 10.7 7.0 - 11.0 FL LAB HEMETOLOGY METHOD 06/11/2024 10:35 AM [facility] NRBC 0.0 <1.0 % LAB HEMETOLOGY METHOD 06/11/2024 10:35 AM [facility] NRBC Absolute 0.00 <0.10 K/mcL LAB HEMETOLOGY METHOD 06/11/2024 10:35 AM EST [facility] Blood Venous blood specimen / Unknown Venipuncture / Unknown 06/11/2024 8:24 AM EST 06/11/2024 9:58 AM EST us Zak Zuluaga MD LAB BLOOD ORDERABLES Final Resul t [facility] [address] [place] [address], documented in this encounter Visit Diagnoses Diagnosis Anemia, unspecified documented in this encounter Additional Health Concerns Infection Onset Date Last Indicated Resolved Time ESBL 06/22/2024 06/22/2024 documented as of this encounter Care Teams Autism Specialist Relationship Specialty Start Date End Date Uday Sheehan MD [address] [place] [address] Dr Donna [place] PCP - General Executive Recruiter 12/19/16 documented as of this encounter
--- OUTSIDE RECORDS SUMMARY | 2024-08-29 16:37 | XMS_ITS | Encounter Summary ---
Author Organization [facility] Address [address] [place] [address] Care Team Providers Care Coal Inspector Name Role Phone Uday Sheehan MD Primary Care Provider [phone] Encounter Details Date Type Department Care Team (Late st Contact Info) Description 06/03/2024 Lab Requisition [facility] - Main Lab [address] [facility] [place] [address] Zak Zuluaga MD [address] [place] [address] Hypothyroidism, unspecified; Essential (primary) hypertension; Unspecified atrial [...] LAB CHEMISTRY METHOD 06/03/2024 1:08 PM EST [facility] Blood Venous blood specimen / Unknown Venipuncture / Unknown 06/03/2024 8:12 AM EST 06/03/2024 9:23 AM EST us Zak Zuluaga MD LAB BLOOD ORDERABLES Final Resul t Performing Organization Address [facility] Co de Phone Number [facility] [address] [place] [address], * Free thyroxine with reflex to free triiodothyronine (06/03/2024 8:12 AM EST) Free T4 1.24 0.70 - 1.80 ng/dL LAB CHEMISTRY METHOD 06/03/2024 12:42 PM EST [facility] Blood Venous blood specimen / Unknown Venipuncture / Unknown 06/03/2024 8:12 AM EST 06/03/2024 9:23 AM EST us Zak Zuluaga MD LAB BLOOD ORDERABLES Final Resul t Performing Organization Address City/[facility]/ZIP Co de Phone Number [facility] [address] [place] [address], [place] [phone] * (ABNORMAL) Thyroid stimulating hormone with reflex to free t4 and free t3 (06/03/2024 8:12 AM EST) TSH 5.71(H) 0.40 - 4.00 mcIU/mL LAB CHEMISTRY METHOD 06/03/2024 12:17 PM [facility] Blood Venous blood specimen / Unknown Venipuncture / Unknown 06/03/2024 8:12 AM EST 06/03/2024 9:23 AM EST us Zak Zuluaga MD LAB BLOOD ORDERABLES Final Resul t [facility] [address] [place] [address], [place] [phone] * (ABNORMAL) Comprehensive metabolic panel (06/03/2024 8:12 AM EST) Pathologist [facility] Sodium 145 133 - 145 mmol/L LAB CHEMISTRY METHOD 06/03/2024 12:11 PM [facility] Potassium 3.9 3.5 - 5.5 mmol/L LAB CHEMISTRY METHOD 06/03/2024 12:11 PM [facility] Chloride 110 96 - 110 mmol/L LAB CHEMISTRY METHOD 06/03/2024 12:11 PM [facility] CO2 28 21 - 32 mmol/L LAB CHEMISTRY METHOD 06/03/2024 12:11 PM [facility] Anion Gap 7 3 - 11 LAB CHEMISTRY METHOD 06/03/2024 12:11 PM [facility] Glucose 83 70 - 100 mg/dL LAB CHEMISTRY METHOD 06/03/2024 12:11 PM [facility] BUN 40(H) 5 - 25 mg/dL LAB CHEMISTRY METHOD 06/03/2024 12:11 PM [facility] Creatinine 2.47(H) 0.70 - 1.30 mg/dL LAB CHEMISTRY METHOD 06/03/2024 12:11 PM [facility] eGFR 25(L) >=60 mL/min/1. 73m2 LAB CHEMISTRY METHOD 06/03/2024 12:11 PM [facility] Comment:Calculation based on the??Chronic Kidney Disease Epidemiology Collaboration (CKD-EPI) equation refit??without adjustment for race. BUN/Creatinine Ratio 16.2 LAB CHEMISTRY METHOD 06/03/2024 12:11 PM [facility] Calcium 8.1(L) 8.5 - 10.5 mg/dL LAB CHEMISTRY METHOD 06/03/2024 12:11 PM [facility] AST (SGOT) 19 10 - 42 unit/L LAB CHEMISTRY METHOD 06/03/2024 12:11 PM [facility] ALT (SGPT) 17 10 - 60 unit/L LAB CHEMISTRY METHOD 06/03/2024 12:11 PM [facility] Alkaline Phosphatase 81 42 - 121 unit/L LAB CHEMISTRY METHOD 06/03/2024 12:11 PM [facility] Total Protein 5.4(L) 6.0 - 8.0 g/dL LAB CHEMISTRY METHOD 06/03/2024 12:11 PM [facility] Albumin 1.9(L) 3.2 - 5.0 g/dL LAB CHEMISTRY METHOD 06/03/2024 12:11 PM [facility] Total Bilirubin 0.4 0.0 - 1.4 mg/dL LAB CHEMISTRY METHOD 06/03/2024 12:11 PM [facility] Blood Venous blood specimen / Unknown Venipuncture / Unknown 06/03/2024 8:12 AM EST 06/03/2024 9:23 AM EST us Zak Zuluaga MD LAB BLOOD ORDERABLES Final Resul t [facility] [address] [place] [address], * (ABNORMAL) Complete blood count (06/03/2024 8:12 AM EST) [facility] WBC 6.6 4.8 - 10.8 K/mcL LAB HEMETOLOGY METHOD 06/03/2024 10:42 AM [facility] RBC 2.70(L) 4.50 - 5.50 M/mcL LAB HEMETOLOGY METHOD 06/03/2024 10:42 AM [facility] Hemoglobin 7.2(L) 13.5 - 17.5 g/dL LAB HEMETOLOGY METHOD 06/03/2024 10:42 AM [facility] Hematocrit 23.7(L) 42.0 - 54.0 % LAB HEMETOLOGY METHOD 06/03/2024 10:42 AM [facility] MCV 89.1 79.0 - 98.0 FL LAB HEMETOLOGY METHOD 06/03/2024 10:42 AM [facility] MCH 27.1 27.0 - 32.0 pcg LAB HEMETOLOGY METHOD 06/03/2024 10:42 AM [facility] MCHC 30.4(L) 32.0 - 37.0 g/dL LAB HEMETOLOGY METHOD 06/03/2024 10:42 AM [facility] RDW 16.7(H) 11.0 - 15.0 % LAB HEMETOLOGY METHOD 06/03/2024 10:42 AM [facility] Platelets 145 130 - 400 K/mcL LAB HEMETOLOGY METHOD 06/03/2024 10:42 AM [facility] MPV 10.4 7.0 - 11.0 FL LAB HEMETOLOGY METHOD 06/03/2024 10:42 AM [facility] NRBC 0.0 <1.0 % LAB HEMETOLOGY METHOD 06/03/2024 10:42 AM [facility] NRBC Absolute 0.00 <0.10 K/mcL LAB HEMETOLOGY METHOD 06/03/2024 10:42 AM EST [facility] Blood Venous blood specimen / Unknown Venipuncture / Unknown 06/03/2024 8:12 AM EST 06/03/2024 9:23 AM EST us Zak Zuluaga MD LAB BLOOD ORDERABLES Final Resul t [facility] [address] [place] [address], documented in this encounter Visit Diagnoses Diagnosis Hypothyroidism, unspecified Essential (primary) hypertension Unspecified essential hypertension Unspecified atrial fibrillation (CMS/HCC) documented in this encounter Additional Health Concerns Infection Onset Date Last Indicated Resolved Time ESBL 06/22/2024 06/22/2024 documented as of this encounter Care Teams Coal Inspector Relationship Specialty Start Date End Date Uday Sheehan MD [address] [place] [address] Dr Donna [place] PCP - General Reinforcing Steel Erector 12/19/16 documented as of this encounter
--- OUTSIDE RECORDS SUMMARY | 2024-08-29 16:37 | XMS_ITS | Encounter Summary ---
[facility] [address] [facility] Address [address] [place] [address] Care Team Providers Care Planer Chain Offbearer Name Role Phone Uday Sheehan MD Primary Care Provider [phone] Encounter Details Date Type Department Care Team (Late st Contact Info) Description 06/07/2024 Lab Requisition [facility] - Main Lab [address] [place] [address] Zak Zuluaga MD [address] [place] [address] Unspecified atrial fibrillation (CMS/HCC); Essential (primary) hypertension [...] 06/10/2024 9:35 AM [facility] Potassium 4.2 3.5 [...] MD LAB BLOOD ORDERABLES Final Resul t [facility] [address] [place] [address], * (ABNORMAL) Complete blood count (06/10/2024 6:43 [...] FL LAB HEMETOLOGY METHOD 06/10/2024 8:36 AM EST [facility] MCH 26.0(L) 27.0 - 32.0 pcg LAB HEMETOLOGY METHOD 06/10/2024 8:36 AM [facility] MCHC 29.6(L) 32.0 [...] MD LAB BLOOD ORDERABLES Final Resul t [facility] [address] [place] [address], documented in this encounter Visit Diagnoses Diagnosis Unspecified atrial fibrillation (CMS/HCC) Essential (primary) hypertension Unspecified essential hypertension documented in this encounter Additional Health Concerns Infection Onset Date Last Indicated Resolved Time ESBL 06/22/2024 06/22/2024 documented as of this encounter Care Teams Planer Chain Offbearer Relationship Specialty Start Date End Date Uday Sheehan MD [address] [facility] [address] Donna [place] PCP - General Train Gate Attendant 12/19/16 documented as of this encounter
--- OUTSIDE RECORDS SUMMARY | 2024-08-29 16:37 | XMS_ITS | Encounter Summary ---
Author Organization [facility] Address [address] [place] [address] Care Team Providers Care Oracle Database Developer Name Role Phone Uday Sheehan MD Primary Care Provider [phone] Encounter Details Date Type Department Care Team (Late st Contact Info) Description 07/19/2024 Lab Requisition [facility] - Main Lab [address] [place] [address] Tabby Bledsoe MD [address] [address] Bacteremia Social History Tobacco Use Types Packs/Day [...] LAB CHEMISTRY METHOD 07/22/2024 10:29 AM EST [facility] Potassium 4.3 3.5 - 5.5 mmol/L LAB CHEMISTRY METHOD 07/22/2024 10:29 AM [facility] Chloride 107 96 - 110 mmol/L LAB CHEMISTRY METHOD 07/22/2024 10:29 AM [facility] CO2 31 21 - 32 mmol/L LAB CHEMISTRY METHOD 07/22/2024 10:29 AM [facility] Anion Gap 5 3 - 11 LAB CHEMISTRY METHOD 07/22/2024 10:29 AM [facility] Glucose 87 70 - 100 mg/dL LAB CHEMISTRY METHOD 07/22/2024 10:29 AM [facility] BUN 24 5 - 25 mg/dL LAB CHEMISTRY METHOD 07/22/2024 10:29 AM [facility] Creatinine 2.18(H) 0.70 - 1.30 mg/dL LAB CHEMISTRY METHOD 07/22/2024 10:29 AM [facility] eGFR 29(L) >=60 mL/min/1. 73m2 LAB CHEMISTRY METHOD 07/22/2024 10:29 AM [facility] Comment:Calculation based on the??Chronic Kidney Disease Epidemiology Collaboration (CKD-EPI) equation refit??without adjustment for race. BUN/Creatinine Ratio 11.0 LAB CHEMISTRY METHOD 07/22/2024 10:29 AM [facility] Calcium 9.5 8.5 - 10.5 mg/dL LAB CHEMISTRY METHOD 07/22/2024 10:29 AM [facility] AST (SGOT) 14 10 - 42 unit/L LAB CHEMISTRY METHOD 07/22/2024 10:29 AM [facility] ALT (SGPT) 12 10 - 60 unit/L LAB CHEMISTRY METHOD 07/22/2024 10:29 AM [facility] Alkaline Phosphatase 92 42 - 121 unit/L LAB CHEMISTRY METHOD 07/22/2024 10:29 AM [facility] Total Protein 5.6(L) 6.0 - 8.0 g/dL LAB CHEMISTRY METHOD 07/22/2024 10:29 AM [facility] Albumin 1.6(L) 3.2 - 5.0 g/dL LAB CHEMISTRY METHOD 07/22/2024 10:29 AM [facility] Total Bilirubin 0.3 0.0 - 1.4 mg/dL LAB CHEMISTRY METHOD 07/22/2024 10:29 AM [facility] Blood Venous blood specimen / Unknown Venipuncture / Unknown 07/22/2024 7:38 AM EST 07/22/2024 9:41 AM EST us Tabby Bledsoe MD LAB BLOOD ORDERABLES Fin al Result [facility] [address] [place] [address], [place] [phone] * (ABNORMAL) Complete blood count (07/22/2024 7:38 AM EST) WBC 5.4 4.8 - 10.8 K/mcL LAB HEMETOLOGY METHOD 07/22/2024 10:01 AM [facility] RBC 2.90(L) 4.50 - 5.50 M/mcL LAB HEMETOLOGY METHOD 07/22/2024 10:01 AM [facility] Hemoglobin 7.5(L) 13.5 - 17.5 g/dL LAB HEMETOLOGY METHOD 07/22/2024 10:01 AM [facility] Hematocrit 25.6(L) 42.0 - 54.0 % LAB HEMETOLOGY METHOD 07/22/2024 10:01 AM [facility] MCV 88.3 79.0 - 98.0 FL LAB HEMETOLOGY METHOD 07/22/2024 10:01 AM [facility] MCH 25.9(L) 27.0 - 32.0 pcg LAB HEMETOLOGY METHOD 07/22/2024 10:01 AM [facility] MCHC 29.3(L) 32.0 - 37.0 g/dL LAB HEMETOLOGY METHOD 07/22/2024 10:01 AM [facility] RDW 19.0(H) 11.0 - 15.0 % LAB HEMETOLOGY METHOD 07/22/2024 10:01 AM [facility] Platelets 259 130 - 400 K/mcL LAB HEMETOLOGY METHOD 07/22/2024 10:01 AM [facility] MPV 9.3 7.0 - 11.0 FL LAB HEMETOLOGY METHOD 07/22/2024 10:01 AM [facility] NRBC 0.0 <1.0 % LAB HEMETOLOGY METHOD 07/22/2024 10:01 AM [facility] NRBC Absolute 0.00 <0.10 K/mcL LAB HEMETOLOGY METHOD 07/22/2024 10:01 AM [facility] Blood Venous blood specimen / Unknown Venipuncture / Unknown 07/22/2024 7:38 AM EST 07/22/2024 9:41 AM EST Tabby Bledsoe MD LAB BLOOD ORDERABLES Fin al Result [facility] [address] [place] [address], documented in this encounter Visit Diagnoses Diagnosis Bacteremia documented in this encounter Additional Health Concerns Infection Onset Date Last Indicated Resolved Time ESBL 06/22/2024 06/22/2024 documented as of this encounter Care Teams Oracle Database Developer Relationship Specialty Start Date End Date Uday Sheehan MD [address] [facility] [address] Donna [place] PCP - General Supervisor Gear Repair 12/19/16 documented as of this encounter
--- OUTSIDE RECORDS SUMMARY | 2024-08-29 16:37 | XMS_ITS | Encounter Summary ---
Author Organization [facility] Address [address] [place] [address] Care Team Providers Care Hydraulic Bull Riveter Operator Name Role Phone Uday Sheehan MD Primary Care Provider [phone] Encounter Details Date Type Department Care Team (Late st Contact Info) Description 08/21/2024 Lab Requisition [facility] - Main Lab [address] [place] [address] Tabby Bledsoe MD [address] [address] Anemia, unspecified Social History Tobacco Use Types [...] Associated Diagnosis Comments COMPLETE BLOOD COUNT Routine 08/21/2024 7:55 AM EST Anemia, unspecified BASIC METABOLIC PANEL Routine 08/21/2024 7:55 AM EST Anemia, unspecified documented in this encounter Results * (ABNORMAL) Basic metabolic panel (08/21/2024 7:55 AM EST) Sodium 142 133 - 145 mmol/L LAB CHEMISTRY METHOD 08/21/2024 11:26 AM EST [facility] Potassium 3.8 3.5 - 5.5 mmol/L LAB CHEMISTRY METHOD 08/21/2024 11:26 AM [facility] Chloride 109 96 - 110 mmol/L LAB CHEMISTRY METHOD 08/21/2024 11:26 AM [facility] CO2 30 21 - 32 mmol/L LAB CHEMISTRY METHOD 08/21/2024 11:26 AM [facility] Anion Gap 3 3 - 11 LAB CHEMISTRY METHOD 08/21/2024 11:26 AM [facility] Glucose 100 70 - 100 mg/dL LAB CHEMISTRY METHOD 08/21/2024 11:26 AM [facility] BUN 22 5 - 25 mg/dL LAB CHEMISTRY METHOD 08/21/2024 11:26 AM [facility] Creatinine 1.38(H) 0.70 - 1.30 mg/dL LAB CHEMISTRY METHOD 08/21/2024 11:26 AM [facility] eGFR 50(L) >=60 mL/min/1. 73m2 LAB CHEMISTRY METHOD 08/21/2024 11:26 AM [facility] Comment:Calculation based on the??Chronic Kidney Disease Epidemiology Collaboration (CKD-EPI) equation refit??without adjustment for race. BUN/Creatinine Ratio 15.9 LAB CHEMISTRY METHOD 08/21/2024 11:26 AM [facility] Calcium 8.5 8.5 - 10.5 mg/dL LAB CHEMISTRY METHOD 08/21/2024 11:26 AM [facility] Blood Venous blood specimen / Unknown Venipuncture / Unknown 08/21/2024 7:55 AM EST 08/21/2024 10:41 AM EST us Tabby Bledsoe MD LAB BLOOD ORDERABLES Fin al Result [facility] [address] [place] [address], * (ABNORMAL) Complete blood count (08/21/2024 7:55 AM EST) [facility] WBC 6.5 4.8 - 10.8 K/mcL LAB HEMETOLOGY METHOD 08/21/2024 11:00 AM [facility] RBC 2.80(L) 4.50 - 5.50 M/mcL LAB HEMETOLOGY METHOD 08/21/2024 11:00 AM [facility] Hemoglobin 7.6(L) 13.5 - 17.5 g/dL LAB HEMETOLOGY METHOD 08/21/2024 11:00 AM [facility] Hematocrit 26.2(L) 42.0 - 54.0 % LAB HEMETOLOGY METHOD 08/21/2024 11:00 AM [facility] MCV 92.3 79.0 - 98.0 FL LAB HEMETOLOGY METHOD 08/21/2024 11:00 AM [facility] MCH 26.8(L) 27.0 - 32.0 pcg LAB HEMETOLOGY METHOD 08/21/2024 11:00 AM [facility] MCHC 29.0(L) 32.0 - 37.0 g/dL LAB HEMETOLOGY METHOD 08/21/2024 11:00 AM [facility] RDW 18.8(H) 11.0 - 15.0 % LAB HEMETOLOGY METHOD 08/21/2024 11:00 AM [facility] Platelets 277 130 - 400 K/mcL LAB HEMETOLOGY METHOD 08/21/2024 11:00 AM [facility] MPV 9.0 7.0 - 11.0 FL LAB HEMETOLOGY METHOD 08/21/2024 11:00 AM [facility] NRBC 0.0 <1.0 % LAB HEMETOLOGY METHOD 08/21/2024 11:00 AM [facility] NRBC Absolute 0.00 <0.10 K/mcL LAB HEMETOLOGY METHOD 08/21/2024 11:00 AM EST [facility] Blood Venous blood specimen / Unknown Venipuncture / Unknown 08/21/2024 7:55 AM EST 08/21/2024 10:41 AM EST us Tabby Bledsoe MD LAB BLOOD ORDERABLES Fin al Result [facility] [address] [place] [address], documented in this encounter Visit Diagnoses Diagnosis Anemia, unspecified documented in this encounter Additional Health Concerns Infection Onset Date Last Indicated Resolved Time ESBL 06/22/2024 06/22/2024 documented as of this encounter Care Teams Hydraulic Bull Riveter Operator Relationship Specialty Start Date End Date Uday Sheehan MD [address] [place] [address] Dr [place] PCP - General Inverform Machine Operator 12/19/16 documented as of this encounter
--- OUTSIDE RECORDS SUMMARY | 2024-08-29 16:37 | XMS_ITS | Encounter Summary ---
Author Organization [facility] Address [address] [place] [address] Care Team Providers Care Blue Leather Setter Name Role Phone Uday Sheehan MD Primary Care Provider [phone] Encounter Details Date Type Department Care Team (Late st Contact Info) Description 06/23/2024 Lab Requisition [facility] - Main Lab [address] [place] [address] Pearl Garcia MD [address] [place] [address] Other retention of urine Social [...] reflex microscopic (06/22/2024 12:00 AM EST) Specific [place] Urine 1.013 1.003 - 1.030 LAB URINALYSIS - AUTOMATED METHOD 06/23/2024 12:51 PM [facility] pH, Urine 6.0 5.0 - 8.0 pH LAB URINALYSIS - AUTOMATED METHOD 06/23/2024 12:51 PM [facility] Leukocytes, Urine Large(A) Negative LAB URINALYSIS - AUTOMATED METHOD 06/23/2024 12:51 PM [facility] Nitrite, Urine Negative Negative LAB URINALYSIS - AUTOMATED METHOD 06/23/2024 12:51 PM [facility] Protein, Urine 100(A) <=Trace mg/dL LAB URINALYSIS - AUTOMATED METHOD 06/23/2024 12:51 PM [facility] Glucose, Urine Negative Negative mg/dL LAB URINALYSIS - AUTOMATED METHOD 06/23/2024 12:51 PM [facility] Ketones, Urine Negative Negative mg/dL LAB URINALYSIS - AUTOMATED METHOD 06/23/2024 12:51 PM [facility] Urobilinogen , Urine 0.2 0.2 - 1.0 mg/dL LAB URINALYSIS - AUTOMATED METHOD 06/23/2024 12:51 PM [facility] Bilirubin, Urine Negative Negative LAB URINALYSIS - AUTOMATED METHOD 06/23/2024 12:51 PM [facility] Blood, Urine Large(A) Negative LAB URINALYSIS - AUTOMATED METHOD 06/23/2024 12:51 PM [facility] RBC, Urine 32.8(H) 0 - 4 /HPF LAB URINALYSIS - AUTOMATED METHOD 06/23/2024 12:51 PM [facility] WBC, Urine 3,850.2(H) 0 - 4 /HPF LAB URINALYSIS - AUTOMATED METHOD 06/23/2024 12:51 PM [facility] Squamous Epithelial, Urine 20 0 - 60 /LPF LAB URINALYSIS - AUTOMATED METHOD 06/23/2024 12:51 PM [facility] Bacteria, Urine Many(A) Negative /HPF LAB URINALYSIS - AUTOMATED METHOD 06/23/2024 12:51 PM EST [facility] Hyaline Casts, Urine 2.9 0 - 3 /LPF LAB URINALYSIS - AUTOMATED METHOD 06/23/2024 12:51 PM EST [facility] Urine Urine specimen obtained by clean catch procedure / Unknown Non-blood Collection / Unknown 06/22/2024 06/23/2024 11:44 AM EST us Pearl Garcia MD LAB URINE ORDERABLES Final Resul t [facility] [address] [place] [address], * (ABNORMAL) Culture urine (06/22/2024 12:00 AM EST) Culture, Urine >100,000 CFU/mL Klebsiella pneumoniae ESBL(A) [place] 06/26/2024 7:51 AM EST [facility] Comment: THIS ORGANISM IS POSITIVE FOR EXTENDED SPECTRUM BETA-LACTAMASE (ESBL). ??EXTENDED SPECTRUM BETA-LACTAMASE ??PRODUCING ORGANISMS DEMONSTRATE DECREASED ACTIVITY WITH PENICILLILNS, CEPHALOSPORINS AND AZTREONAM. This is an edited result. Previous organism was Gram negative bacilli on 06/24/2024 at 1028 EST. Culture, Urine >100,000 CFU/mL Escherichia coli(A) [place] 06/26/2024 7:51 AM EST [facility] Comment: The organism value for this [...] MICROBIOLOGY - GENERAL ORDER KINSEY Final Result [facility] [address] [place] [address], documented in this encounter Visit Diagnoses Diagnosis Other retention of urine documented in this encounter Additional Health Concerns Infection Onset Date Last Indicated Resolved Time ESBL 06/22/2024 06/22/2024 documented as of this encounter Care Teams Blue Leather Setter Relationship Specialty Start Date End Date Uday Sheehan MD [address] [place] [address] Dr Donna [place] PCP - General Help Desk Engineer 12/19/16 documented as of this encounter
--- OUTSIDE RECORDS SUMMARY | 2024-08-29 16:37 | XMS_ITS | Patient Health Record ---
Author Organization [facility] Address [address] [place] [address] Care Team Providers Care Shellfish Dredge Operator Name Role Phone ZanLuis Angel [email or web address] Primary Care Provider Louis Horne [phone] ALLERGIES Allergen (clinical drug ingredient) Drug/Non Drug [...] Code Notes Problem Bloating (R14.0) Active confirmed 75041 9008 Problem Chest discomfort (R07.89) Active confirmed 542863448 Problem Gastroesophageal reflux disease without esophagitis (K21.9) Active confirmed 612735644 Problem Other irritable bowel syndrome (K58.8) Active confirmed 21189935 Problem Hypertension, unspecified type (I10) Active confirmed 29538353 Problem Gastroesophageal reflux disease, unspecified whether esophagitis present (K21.9) Active confirmed [id number] PLAN OF TREATMENT Pending Test Test Name Order Date XR GI SERIES 03/14/2018 Pathology 09/13/2021 Future Test Test Name Order Date UPPER GI ENDOSCOPY 08/06/2021 Insurance Providers Payer Name Payer Address Payer Phone Subscriber Number Group Number Insured Name Patient Relationship to Insured Coverage Start Date Coverage End Date MEDICARE [place] [address] [place] [address] [id number] RIZWANA ANDREW Self - patient is the insured MEDEX ATTN CLAIMS [address] [place] [address] [id number] RIZWANA ANDREW Self - patient is the insured MEDICAL (GENERAL) HISTORY Medical History History ICD Code Nephrolithiasis Hyperlipidemia Denies [place],DM,CVA,Lung disease,renal dise ase Afib--2 unsuccessful ablatio n porcedures--sees Dr. Villalobos-cardiology at [facility]--s/p [place] [facility]---he has had multiple cardioversions [...]
--- OUTSIDE RECORDS SUMMARY | 2024-08-29 16:37 | XMS_ITS | Encounter Summary ---
Author Organization [facility] Address [address] [place] [address] Care Team Providers Care Glove Printer Name Role Phone Uday Sheehan Primary Care Provider [phone] Encounter Details Date Type Department Care Team (Late st Contact Info) Description 05/28/2024 Lab Requisition [facility] [address] [place] [address] Valarie Pierson MD [address] [place] [address] Acute and chronic respiratory failure with hypoxia [...] of this encounter Procedures * Due to [place] [employer] law, this organization might not be sharing negative HIV tests. Procedure Name Priority Date/Time Associated Diagnosis Comments TROPONIN T HIGH SENSITIVITY Routine 05/28/2024 2:28 PM EST Acute and chronic respiratory failure with hypoxia (HCC) No diagnosis documented in this encounter Results * Due to [place] [employer] law, this organization might not be sharing negative HIV tests. * (ABNORMAL) Troponin T, High Sensitivity (05/28/2024 2:28 PM EST) Troponin T High Sensitivity 35(H) 6 - 22 ng/L 05/28/2024 3:30 PM EST [facility] Comment: Zx-Lnlhojst-M level of 52 ng/L or higher at [...] be evaluated in line with the 4th Montour Definition of AMI. 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
[2024-08-29 16:38] LABS: Alkaline Phosphatase 103 U/L (39-117)
--- OUTSIDE RECORDS SUMMARY | 2024-08-29 16:38 | XMS_ITS | Patient Health Record ---
Author Organization [facility] Address [address] [place] [address] Care Team Providers Care Content Developer Name Role Phone Pearl Garcia Primary Care Provider Luclia Phillip Unavailable [phone] Reason For Referral No Information Encounters Encounter Location Date Provider Diagnosis [facility] [address] [place] [address] 08/08/2024 Lucila Kapoor Plan Of Treatment No Information Insurance Providers Payer Name Payer Address Payer Phone Subscriber Number Group Number Insured Name Patient Relationship to Insured Coverage Start Date Coverage End Date Medicare National [facility] [address] [place] [address] [id number] [place] i Self - patient is the insured Medex Blue Shield [address] [place] [address] [id number] [place] Self - patient is the insured
--- OUTSIDE RECORDS SUMMARY | 2024-08-29 16:38 | XMS_ITS | Encounter Summary ---
Author Organization [facility] Address [address] [place] [address] Care Team Providers Care Hub Cutter Apprentice Name Role Phone Uday Sheehan Primary Care Provider [phone] Encounter Details Date Type Department Care Team (Late st Contact Info) Description 03/11/2024 Lab Requisition [facility] [address] [place] [address] Lidia Barry NP [address] [place] [address] Acute and chronic respiratory failure with hypoxia [...] after 5 days 03/16/2024 3:06 PM EDT [facility] Blood Structure of peripheral vein / Unknown Venipuncture / Unknown 03/11/2024 1:30 PM EDT 03/11/2024 2:34 PM EDT us Lidia Barry LAB MICROBIOLOGY - GENERAL O RDERABLES Final Result Performing Organization Address City/[facility]/ZIP Co de Phone Number [facility] [address] [address], [place] [phone] * Blood Culture (03/11/2024 1:30 PM EDT) Blood Culture No growth after 5 days 03/16/2024 3:06 PM EDT [facility] Blood Structure of peripheral vein / Unknown Venipuncture / Unknown 03/11/2024 1:30 PM EDT 03/11/2024 2:34 PM EDT [facility] MICROBIOLOGY - GENERAL O RDERABLES Final Result Performing Organization Address [facility] Co de Phone Number [facility] [address] [address], [place] [phone] * (ABNORMAL) Microscopic Urinalysis Only (03/11/2024 11:13 AM EDT) RBC, Urine 40-50(A) None Seen, 0-2 /HPF 03/11/2024 3:06 PM EDT [facility] WBC, Urine 20-30(A) None Seen, 0-2 /HPF 03/11/2024 3:06 PM EDT [facility] Squamous Epithelial Cells, Urine 3-5 /HPF 03/11/2024 3:06 PM EDT [facility] Calcium Oxalate Crystals, Urine Moderate /HPF 03/11/2024 3:06 PM EDT [facility] Bacteria, Urine Moderate(A) None Seen /HPF 03/11/2024 3:06 PM EDT [facility] Urine Urine specimen collection, clean catch / Unknown Non-Blood Collection / Unknown 03/11/2024 11:13 AM EDT 03/11/2024 2:45 PM EDT us Lidia Barry MOULDER OPERATOR LAB URINE ORDERABLES Final R esult Performing Organization Address [facility] Co de Phone Number [facility] [address] [address], * (ABNORMAL) Urine Culture, Routine (03/11/2024 11:13 AM EDT) Urine Culture >100,000 CFU/mL Pseudomonas aeruginosa(A) MINIMUM INHIBITORY CONCENTRATION (FRANKLIN) 03/15/2024 8:12 AM EDT [facility] Urine Urine specimen collection, [...] Comment:FRANKLIN values in mcg/mL . Lidia Barry MOULDER OPERATOR LAB MICROBIOLOGY - GENERAL O RDERABLES Final Result Performing Organization Address [facility] Co de Phone Number [facility] [address] [address], [place] [phone] * Lactic Acid, Plasma (03/11/2024 11:13 AM EDT) Lactic Acid 0.8 0.5 - 2.0 mmol/L 03/11/2024 3:02 PM EDT [facility] Blood Structure of peripheral vein / Unknown 03/11/2024 11:13 AM EDT 03/11/2024 2:40 PM EDT us Lidia [facility] MOULDER OPERATOR LAB BLOOD ORDERABLES Final R esult Performing Organization Address [facility]/ZIP Co de Phone Number [facility] [address] [address], [place] [phone] * Magnesium (03/11/2024 11:13 AM EDT) MG 1.8 1.5 - 2.5 mg/dL 03/11/2024 3:03 PM EDT [facility] Blood Structure of peripheral vein / Unknown Venipuncture / Unknown 03/11/2024 11:13 AM EDT 03/11/2024 2:34 PM EDT Lidia [facility] MOULDER OPERATOR LAB BLOOD ORDERABLES Final R esult Performing Organization Address [facility] de Phone Number [facility] [address] [address], [place] [phone] * (ABNORMAL) Comprehensive Metabolic Panel (03/11/2024 11:13 AM EDT) NA 136 136 - 145 mmol/L 03/11/2024 3:03 PM EDT [facility] K 3.7 3.5 - 5.1 mmol/L 03/11/2024 3:03 PM EDT [facility] Cl 101 98 - 109 mmol/L 03/11/2024 3:03 PM EDT [facility] CO2 24 23 - 32 mmol/L 03/11/2024 3:03 PM EDT [facility] Anion Gap 15 >=0 03/11/2024 3:03 PM EDT [facility] Glucose 123(H) 60 - 99 mg/dL 03/11/2024 3:03 PM EDT [facility] Creatinine 1.26(H) 0.50 - 1.12 mg/dL 03/11/2024 3:03 PM EDT [facility] Calcium 8.9 8.4 - 10.4 mg/dL 03/11/2024 3:03 PM EDT [facility] Total Protein 5.6(L) 6.6 - 8.7 g/dL 03/11/2024 3:03 PM EDT [facility] Albumin 3.2(L) 3.5 - 5.0 g/dL 03/11/2024 3:03 PM EDT [facility] Bilirubin, Total 0.5 0.2 - 1.2 mg/dL 03/11/2024 3:03 PM EDT [facility] Alkaline Phosphatase 103 40 - 129 U/L 03/11/2024 3:03 PM EDT [facility] AST 73(H) 0 - 40 U/L 03/11/2024 3:03 PM EDT [facility] ALT 73(H) <=41 U/L 03/11/2024 3:03 PM EDT [facility] BUN 16 8 - 23 mg/dL 03/11/2024 3:03 PM T [facility] eGFR 56(L) >=60 mL/min/1. 73m2 03/11/2024 3:03 PM T [facility] Comment:The estimated glomer ular filtration [...] - 4.2 g/dL 03/11/2024 3:03 PM T [facility] A/G Ratio 1.3(L) 1.5 - 3.0 03/11/2024 3:03 PM [facility] Blood Structure of peripheral vein / Unknown Venipuncture / Unknown 03/11/2024 11:13 AM EDT 03/11/2024 2:34 PM EDT us Lidia Barry MOULDER OPERATOR LAB BLOOD ORDERABLES Final R esult [facility] [address] [facility] [address] [place] [address], [place] [phone] * (ABNORMAL) CBC Auto Differential (03/11/2024 11:13 AM EDT) WBC 8.5 4.8 - 10.8 10*3/uL 03/11/2024 2:44 PM EDT [facility] RBC 3.04(L) 4.70 - 6.10 10*6/uL 03/11/2024 2:44 PM EDT [facility] Hemoglobin 8.6(L) 13.7 - 16.5 g/dL 03/11/2024 2:44 PM EDT [facility] Hematocrit 26.1(L) 40.5 - 48.5 % 03/11/2024 2:44 PM EDT [facility] MCV 85.9 80.0 - 94.0 fL 03/11/2024 2:44 PM EDT [facility] MCH 28.3 26.0 - 34.0 pg 03/11/2024 2:44 PM EDT [facility] MCHC 33.0 31.0 - 36.0 g/dL 03/11/2024 2:44 PM EDT [facility] RDW 14.9 12.0 - 15.0 % 03/11/2024 2:44 PM EDT [facility] RDW Standard Deviation 47.3(H) 35.1 - 43.9 fL 03/11/2024 2:44 PM EDT [facility] Platelets 131(L) 140 - 440 10*3/uL 03/11/2024 2:44 PM EDT [facility] MPV 10.6 9.4 - 12.4 fL 03/11/2024 2:44 PM EDT [facility] Neutrophil % 65.2 50.0 - 75.0 % 03/11/2024 2:44 PM EDT [facility] Immature Grans % 0.4 0.0 - 0.9 % 03/11/2024 2:44 PM EDT [facility] Lymphocyte % 20.9 20.0 - 44.0 % 03/11/2024 2:44 PM EDT [facility] Monocyte % 10.9 0.0 - 14.0 % 03/11/2024 2:44 PM EDT [facility] Eosinophil % 2.2 0.0 - 5.0 % 03/11/2024 2:44 PM EDT [facility] Basophil % 0.4 0.0 - 2.0 % 03/11/2024 2:44 PM EDT [facility] Neutrophil # 5.51 1.80 - 7.70 10*3/uL 03/11/2024 2:44 PM EDT [facility] Immature Grans # 0.03 0.00 - 0.03 10*3/uL 03/11/2024 2:44 PM EDT [facility] Lymphocyte # 1.80 1.00 - 4.75 10*3/uL 03/11/2024 2:44 PM EDT [facility] Monocyte # 0.90 0.00 - 6.00 10*3/uL 03/11/2024 2:44 PM EDT [facility] Eosinophil # 0.20 0.00 - 0.80 10*3/uL 03/11/2024 2:44 PM EDT [facility] Basophil # <0.03 0.00 - 0.20 10*3/uL 03/11/2024 2:44 PM EDT [facility] nRBC % 0.0 0 - 0 /100 WBCs 03/11/2024 2:44 PM EDT [facility] nRBC # <0.01 0.00 - 0.13 10*3/uL 03/11/2024 2:44 PM EDT [facility] Blood Structure of peripheral vein / Unknown Venipuncture / Unknown 03/11/2024 11:13 AM EDT 03/11/2024 2:34 PM EDT [facility] MOULDER OPERATOR LAB BLOOD ORDERABLES Final R esult Performing Organization Address [facility]/ZIP Co de Phone Number [facility] [address] [address], [place] [phone] * Barcenas Top, Urine (03/11/2024 11:13 AM EDT) Extra Tube Hold for add-ons. 03/11/2024 4:05 PM EDT [facility] Comment:Auto resulted. Urine Urine specimen collection, clean catch / Unknown Non-Blood Collection / Unknown 03/11/2024 11:13 AM EDT 03/11/2024 2:30 PM EDT [facility] MOULDER OPERATOR LAB URINE ORDERABLES Final R esult Performing Organization Address [facility] Co de Phone Number [facility] [address] [address], [place] [phone] * (ABNORMAL) Urinalysis W/Reflex to Microscopic & Culture (03/11/2024 11:13 AM EDT) Color, Urine Dark Yellow Yellow 03/11/2024 2:45 PM EDT [facility] Clarity, Urine Turbid(A) Clear 03/11/2024 2:45 PM EDT [facility] Specific [place], Urine 1.020 1.005 - 1.030 03/11/2024 2:45 PM EDT [facility] pH, Urine 5.5 5.0 - 8.0 03/11/2024 2:45 PM EDT [facility] Protein, Urine 100(A) Negative mg/dL 03/11/2024 2:45 PM EDT [facility] Glucose, Urine Negative Negative mg/dL 03/11/2024 2:45 PM EDT [facility] Ketones, Urine Trace(A) Negative mg/dL 03/11/2024 2:45 PM EDT [facility] Bilirubin, Urine Negative Negative 03/11/2024 2:45 PM EDT [facility] Blood, Urine Large(A) Negative 03/11/2024 2:45 PM EDT [facility] Nitrite, Urine Positive(A) Negative 03/11/2024 2:45 PM EDT [facility] Urobilinogen, Urine 1.0 0.2 - 1.0 E.U./dL 03/11/2024 2:45 PM EDT [facility] Leukocyte Esterase, Urine Moderate(A) Negative 03/11/2024 2:45 PM EDT [facility] Urine Urine specimen collection, clean catch / Unknown Non-Blood Collection / Unknown 03/11/2024 11:13 AM EDT 03/11/2024 2:30 PM EDT us Lidia Barry LAB URINE ORDERABLES Final R esult Performing Organization Address City/State/[facility] Co de Phone Number [facility] [address] [facility] [address] [place] [address], [place] [phone] documented in this encounter Visit Diagnoses Diagnosis [...] documented as of this encounter Care Teams Hub Cutter Apprentice Relationship Specialty Start Date End Date Uday Sheehan [address] [place] [address] [place] [address] PCP - General Internal Medicine 03/27/24 documented as of this encounter
--- OUTSIDE RECORDS SUMMARY | 2024-08-29 16:38 | XMS_ITS | Encounter Summary ---
Author Organization [facility] Address [address] [place] [address] Care Team Providers Care Spot Worker Name Role Phone Uday Sheehan Primary Care Provider [phone] Encounter Details Date Type Department Care Team (Late st Contact Info) Description 03/15/2024 Lab Requisition [facility] [address] [place] [address] Lidia Barry, CB [address] [place] [address] Acute and chronic respiratory failure with hypoxia [...] - 10.8 10*3/uL 03/15/2024 9:07 AM EDT [facility] RBC 3.05(L) 4.70 - 6.10 10*6/uL 03/15/2024 9:07 AM EDT [facility] Hemoglobin 8.5(L) 13.7 - 16.5 g/dL 03/15/2024 9:07 AM EDT [facility] Hematocrit 26.2(L) 40.5 - 48.5 % 03/15/2024 9:07 AM EDT [facility] MCV 85.9 80.0 - 94.0 fL 03/15/2024 9:07 AM EDT [facility] MCH 27.9 26.0 - 34.0 pg 03/15/2024 9:07 AM EDT [facility] MCHC 32.4 31.0 - 36.0 g/dL 03/15/2024 9:07 AM EDT [facility] RDW 15.2(H) 12.0 - 15.0 % 03/15/2024 9:07 AM EDT [facility] RDW Standard Deviation 47.7(H) 35.1 - 43.9 fL 03/15/2024 9:07 AM EDT [facility] Platelets 149 140 - 440 10*3/uL 03/15/2024 9:07 AM EDT [facility] MPV 10.3 9.4 - 12.4 fL 03/15/2024 9:07 AM EDT [facility] Neutrophil % 59.2 50.0 - 75.0 % 03/15/2024 9:07 AM EDT [facility] Immature Grans % 0.4 0.0 - 0.9 % 03/15/2024 9:07 AM EDT [facility] Lymphocyte % 24.8 20.0 - 44.0 % 03/15/2024 9:07 AM EDT [facility] Monocyte % 10.9 0.0 - 14.0 % 03/15/2024 9:07 AM EDT [facility] Eosinophil % 4.1 0.0 - 5.0 % 03/15/2024 9:07 AM EDT [facility] Basophil % 0.6 0.0 - 2.0 % 03/15/2024 9:07 AM EDT [facility] Neutrophil # 4.23 1.80 - 7.70 10*3/uL 03/15/2024 9:07 AM EDT [facility] Immature Grans # 0.03 0.00 - 0.03 10*3/uL 03/15/2024 9:07 AM EDT [facility] Lymphocyte # 1.80 1.00 - 4.75 10*3/uL 03/15/2024 9:07 AM EDT [facility] Monocyte # 0.80 0.00 - 6.00 10*3/uL 03/15/2024 9:07 AM EDT [facility] Eosinophil # 0.30 0.00 - 0.80 10*3/uL 03/15/2024 9:07 AM EDT [facility] Basophil # <0.03 0.00 - 0.20 10*3/uL 03/15/2024 9:07 AM EDT [facility] nRBC % 0.0 0 - 0 /100 WBCs 03/15/2024 9:07 AM EDT [facility] nRBC # <0.01 0.00 - 0.13 10*3/uL 03/15/2024 9:07 AM EDT [facility] Blood Structure of peripheral vein / Unknown 03/15/2024 8:31 AM EDT 03/15/2024 8:31 AM EDT [facility] LAB BLOOD ORDERABLES Final R esult Performing Organization Address City/[facility]/ZIP Co de Phone Number [facility] [address] [address], [place] [phone] * Ammonia (03/15/2024 8:31 AM EDT) Ammonia 17 16 - 60 umol/L 03/15/2024 8:55 AM EDT [facility] Blood Structure of peripheral vein / Unknown 03/15/2024 8:31 AM EDT 03/15/2024 8:31 AM EDT [facility] SIGNAL FITTER LAB BLOOD ORDERABLES Final R esult Performing Organization Address [facility]/ZIP Co de Phone Number [facility] [address] [address], [place] [phone] * (ABNORMAL) Comprehensive Metabolic Panel (03/15/2024 8:31 AM EDT) NA 137 136 - 145 mmol/L 03/15/2024 9:35 AM EDT [facility] K 3.7 3.5 - 5.1 mmol/L 03/15/2024 9:35 AM EDT [facility] Cl 98 98 - 109 mmol/L 03/15/2024 9:35 AM EDT [facility] CO2 31 23 - 32 mmol/L 03/15/2024 9:35 AM EDT [facility] Anion Gap 12 >=0 03/15/2024 9:35 AM EDT [facility] Glucose 108(H) 60 - 99 mg/dL 03/15/2024 9:35 AM EDT [facility] Creatinine 1.07 0.50 - 1.12 mg/dL 03/15/2024 9:35 AM EDT [facility] Calcium 9.0 8.4 - 10.4 mg/dL 03/15/2024 9:35 AM EDT [facility] Total Protein 5.8(L) 6.6 - 8.7 g/dL 03/15/2024 9:35 AM EDT [facility] Albumin 3.2(L) 3.5 - 5.0 g/dL 03/15/2024 9:35 AM EDT [facility] Bilirubin, Total 0.4 0.2 - 1.2 mg/dL 03/15/2024 9:35 AM EDT [facility] Alkaline Phosphatase 112 40 - 129 U/L 03/15/2024 9:35 AM EDT [facility] AST 28 0 - 40 U/L 03/15/2024 9:35 AM EDT [facility] Comment:DELTA REVIEWED ALT 35 <=41 U/L 03/15/2024 9:35 AM EDT [facility] BUN 16 8 - 23 mg/dL 03/15/2024 9:35 AM EDT [facility] eGFR 68 >=60 mL/min/1. 73m2 03/15/2024 9:35 AM EDT [facility] Comment:The estimated glomer ular [...] - 4.2 g/dL 03/15/2024 9:35 AM EDT [facility] A/G Ratio 1.2(L) 1.5 - 3.0 03/15/2024 9:35 AM EDT [facility] Blood Structure of peripheral vein / Unknown 03/15/2024 8:31 AM EDT 03/15/2024 8:31 AM EDT us Lidia [place] SIGNAL FITTER LAB BLOOD ORDERABLES Final R esult [facility] [address] [place] [address], documented in this encounter Visit Diagnoses Diagnosis [...] documented as of this encounter Care Teams Spot Worker Relationship Specialty Start Date End Date Uday Sheehan [address] [place] [address] [place] [address] PCP - General Internal Medicine 03/27/24 documented as of this encounter
--- OUTSIDE RECORDS SUMMARY | 2024-08-29 16:38 | XMS_ITS ---
Author Organization [facility] Address [address] [place] [address] Care Team Providers Care Valuation Consultant Name Role Phone Pearl Garcia Primary Care Provider Lucila Phillip [phone] REASON FOR VISIT Cancel Encounters Encounter Location Date Provider Diagnosis [facility] [address] [place] [address] 08/08/2024 Lucila Kapoor Plan Of Treatment No Information Progress Notes * Ramon ATKINSONDOB:1939 (84 yo M)Acc No.[id number]:08/08/2024 Patient:?Ramon ATKINSON :1940???Age:84 Y???Sex:Male Address: [address] [place], [address] * true * Date:? Generated for Printi ng/Farandyg/eTransmitting on:?08/29/2024 04:38 PM EST
--- OUTSIDE RECORDS SUMMARY | 2024-08-29 16:38 | XMS_ITS ---
Author Organization [facility] Address Unknown Allergies, Adverse Reactions, Alerts Substance Reaction Status Noted Date Resolved Date Procaine active 07/10/2024 Ibuprofen active 07/10/2024 HYDROmorphone active 07/10/2024 Medications Medication Dose Frequency Directions Start Date End Kevin e Amiodarone HCl Oral Tablet 200 MG 1 {tbl} 24 h Give 1 tablet by mouth one time a day for A Fib 07/11/2024 08/16/2024 Ferrous Sulfate Oral Tablet 325 (65 Fe) MG 325 mg 12 h Give 325 mg by anjelica th two times a day for iron 07/11/2024 08/16/2024 Finasteride Oral Tablet 5 MG 5 mg 24 h Give 5 mg by mouth one time a day for BPH 07/11/2024 08/16/2024 Gabapentin Oral Tablet 100 mg 12 h Give 100 mg by mouth two times a day for pain 07/11/2024 08/16/2024 Polyvinyl Alcohol Ophthalmic Solution 1.4 % 1 [drp] Instill 1 drop in both eyes every 6 hours as needed for dry eyes 07/10/2024 08/16/2024 amLODIPine Besylate Oral Tablet 10 MG 10 mg 24 h Give 10 mg by mouth one time a day for bp 07/11/2024 08/16/2024 Cold & Hot Medicated External Patch 5 % Apply to left knee topically every day shift for pain 07/11/2024 08/16/2024 Zofran Oral Tablet 4 MG 4 mg Give 4 mg by mouth every 8 hours as needed for Nausea;Nausea and Vomiting 07/12/2024 08/16/2024 Santyl External Ointment 250 UNIT/GM Apply to sacrum topically every day shift for Stage III pressure wound To wound on sacrum; cleanse with normal saline, apply santyl, cover with dry clean dressing daily. 07/19/2024 08/10/2024 Multivitamin-Minerals Oral Tablet 1 {tbl} Give 1 tablet by mouth in the morning for supplement 07/20/2024 08/16/2024 oxyCODONE HCl Oral Tablet 5 MG 5 mg Give 5 mg by mouth one time only related to URINARY TRACT INFECTION, SITE NOT SPECIFIED (N39.0);PRESSURE ULCER OF SACRAL REGION, STAGE 3 (L89.153) for 1 Day 08/03/2024 08/04/2024 oxyCODONE HCl Oral Tablet 5 MG 1 {tbl} Give 1 tablet by mouth as needed for one time dose as needed by patient per honey extractor for 3 Days 08/04/2024 08/07/2024 oxyCODONE HCl Oral Tablet 5 MG 5 mg Give 5 mg by mouth one time only for pain until 08/08/2024 11:32 08/07/2024 08/08/2024 Cefuroxime Axetil Oral Tablet 250 MG 250 mg 12 h Give 250 mg by mouth two times a day for uti for 7 Days 08/07/2024 08/14/2024 Acidophilus Oral Capsule 1 {Capsule} 12 h Give 1 capsule by mouth two times a day for ABX for UTI until 08/14/2024 23:59 08/09/2024 08/15/2024 Zinc Oral Tablet 220 mg Give 220 mg by mouth in the morning for HEALING for 14 Days 08/10/2024 08/16/2024 Santyl External Ointment 250 UNIT/GM Apply to sacrum topically every day shift for Stage III pressure wound To wound on sacrum; cleanse with normal saline, apply santyl, cover with dry clean dressing daily. 08/11/2024 08/16/2024 Santyl External Ointment 250 UNIT/GM Apply to sacrum topically as needed for wound related to PRESSURE ULCER OF SACRAL REGION, STAGE 3 (L89.153) cleanse with normal saline, apply santyl, cover with dry clean dressing daily and as needed with incontinence episode. 08/10/2024 08/16/2024 Amiodarone HCl Oral Tablet 200 MG 1 {tbl} 24 h Give 1 tablet by mouth one time a day for A Fib 08/17/2024 Ferrous Sulfate Oral Tablet 325 (65 Fe) MG 325 mg 12 h Give 325 mg by anjelica th two times a day for iron 08/17/2024 Finasteride Oral Tablet 5 MG 5 mg 24 h Give 5 mg by mouth one time a day for BPH 08/17/2024 Gabapentin Oral Tablet 100 mg 12 h Give 100 mg by mouth two times a day for pain 08/17/2024 Multivitamin Oral Tablet 1 {tbl} 24 h Give 1 tablet by mouth one time a day for supplement 08/17/2024 08/16/2024 Ascorbic Acid Oral Tablet 500 MG 500 mg 12 h Give 500 mg by mouth two times a day for vit 08/17/2024 MiraLax Oral Powder 17 GM/SCOOP 1 24 h Give 1 scoop by mout h one time a day for constipation 08/17/2024 Eliquis Oral Tablet 2.5 MG 2.5 mg 12 h Give 2.5 mg by mouth two times a day for blood thinner 08/17/2024 Nystatin External Powder [id number] UNIT/GM Apply to groin topically every day and evening shift for fungal rash 08/17/2024 Melatonin Oral Tablet 10 MG 10 mg Give 10 mg by mouth at bedtime for insomnia 08/17/2024 Acetaminophen Tablet 325 MG 3 {tbl} Give 3 tablet by mouth every 6 hours as needed for Pain Pain Total dosage for acetaminophen and medications that contain acetaminophen should not exceed 3 grams / 24 hours. 08/16/2024 Acetaminophen Tablet 325 MG 3 {tbl} Give 3 tablet by mouth every 6 hours as needed for Fever greater than 100.0F Total dosage for acetaminophen and medications that contain acetaminophen should not exceed 3 grams / 24 hours. 08/16/2024 Thiamine Mononitrate Oral Tablet 100 MG 100 mg 24 h Give 100 mg by mouth one time a day for supplement 08/17/2024 Senna Oral Tablet 2 {tbl} Give 2 tab let by mouth at bedtime for constipation 08/17/2024 Colace Oral Capsule 100 MG 100 mg 12 h Give 100 mg by mouth two times a day for constipation 08/17/2024 Doxazosin Mesylate Oral Tablet 2 MG 4 mg Give 4 mg by mouth a t bedtime for BPH 08/17/2024 Albuterol Sulfate Nebulization Solution (2.5 MG/3ML) 0.083% 1 1 vial inhale orally via nebulizer every 4 hours as needed for shortness of breath Pre and Post assessmentLung Sound paulson:1.clear2.wheezes3 .rhonchi4.crackles5.d iminished 08/16/2024 Fleet Enema Enema 7-19 GM/118ML 1 {Dose} Insert 1 dose rectally as needed for Constipation (Step 3) as needed if no bowel movement for 8 hours after bisacodyl suppository. 08/16/2024 Milk of Magnesia Suspension 400 MG/5ML 30 mL Give 30 ml by mout h as needed for Constipation (Step 1) As needed if no bowel movement for three days. (Do not use for Hemodialysis patients). 08/16/2024 Bisacodyl Suppository 10 MG 1 Insert 1 suppository rectally as needed for If no bowel movement for 8 hours after Milk of Magnesia 08/16/2024 Omeprazole Oral Tablet Delayed Release 20 MG 20 mg 12 h Give 20 mg by mouth two times a day for acid reflux 08/17/2024 Famotidine Oral Tablet 20 MG 20 mg Give 20 mg by mouth at bedtime for GERD 08/17/2024 Lactobacillus Oral Tablet 1 {Capsule} 12 h Give 1 capsule by mouth two times a day for probiotic 08/17/2024 Levothyroxine Sodium Oral Tablet 100 MCG 1 {tbl} Give 1 tablet by mouth in the morning for hypothyroidism 08/17/2024 Polyvinyl Alcohol Ophthalmic Solution 1.4 % 1 [drp] Instill 1 drop in both eyes every 6 hours as needed for dry eyes 08/16/2024 amLODIPine Besylate Oral Tablet 10 MG 10 mg 24 h Give 10 mg by mouth one time a day for bp 08/17/2024 Cold & Hot Medicated External Patch 5 % Apply to left knee topically every day shift for pain 08/17/2024 Zofran Oral Tablet 4 MG 4 mg Give 4 mg by mouth every 8 hours as needed for Nausea;Nausea and Vomiting 08/16/2024 Zinc Oral Tablet 50 mg Give 50 mg by mouth in the morning for HEALING for 14 Days 08/17/2024 Santyl External Ointment 250 UNIT/GM Apply to sacrum topically every day shift for Stage III pressure wound To wound on sacrum; cleanse with normal saline, apply santyl, cover with dry clean dressing daily. 08/17/2024 08/17/2024 Santyl External Ointment 250 UNIT/GM Apply to sacrum topically as needed for wound related to PRESSURE ULCER OF SACRAL REGION, STAGE 3 (L89.153) cleanse with normal saline, apply santyl, cover with dry clean dressing daily and as needed with incontinence episode. 08/16/2024 08/17/2024 Multivitamin-Minerals Oral Tablet 1 {tbl} Give 1 tablet by mouth in the morning for supplement 08/17/2024 Ultram Oral Tablet 50 MG 50 mg Give 50 mg by mouth every 8 hours as needed for pain 08/19/2024 Sodium Hypochlorite External Solution 0.25 % Apply to Coccyx/Sacrum topically every day shift for Wound To pressure wound; cleanse with normal saline, pack with Dakins soaked gauze, cover with dry clean dressing daily. 08/29/2024 Santyl External Ointment 250 UNIT/GM Apply to Right heel topically every day shift for Wound To right heel; cleanse with normal saline, apply Santyl, cover with dry clean dressing daily. 08/29/2024 Medications Administered Medication Dose Frequency Status Start Date End Date Amiodarone HCl Oral Tablet 200 MG 1 {tbl} 24 h Hospitalized 08/14/2024 Ferrous Sulfate Oral Tablet 325 (65 Fe) MG 325 mg 12 h Hospitalized 08/14/2024 Finasteride Oral Tablet 5 MG 5 mg 24 h Hospitalized 08/14/2024 Gabapentin Oral Tablet 100 mg 12 h Hospitalized 11/2024 Polyvinyl Alcohol Ophthalmic Solution 1.4 % 1 [drp] 07/10/2024 amLODIPine Besylate Oral Tablet 10 MG 10 mg 24 h Hospitalized 08/14/2024 Cold & Hot Medicated External Patch 5 % Hospitalized 08/14/2024 Zofran Oral Tablet 4 MG 4 mg 07/12/2024 Santyl External Ointment 250 UNIT/GM 08/10/2024 Multivitamin-Minerals Oral Tablet 1 {tbl} Hospitalized 08/14/2024 oxyCODONE HCl Oral Tablet 5 MG 5 mg 08/03/2024 oxyCODONE HCl Oral Tablet 5 MG 1 {tbl} 08/04/2024 oxyCODONE HCl Oral Tablet 5 MG 5 mg 08/07/2024 Cefuroxime Axetil Oral Tablet 250 MG 250 mg 12 h Hospitalized 08/14/2024 Acidophilus Oral Capsule 1 {Capsule} 12 h Hospitalized 08/14/2024 Zinc Oral Tablet 220 mg Hospitalized 08/14/2024 Santyl External Ointment 250 UNIT/GM Hold/See Progress Notes 08/14/2024 Santyl External Ointment 250 UNIT/GM 08/10/2024 Amiodarone HCl Oral Tablet 200 MG 1 {tbl} 24 h 08/29/2024 Ferrous Sulfate Oral Tablet 325 (65 Fe) MG 325 mg 12 h 08/29/2024 Finasteride Oral Tablet 5 MG 5 mg 24 h 08/29/2024 Gabapentin Oral Tablet 100 mg 12 h 025 Multivitamin Oral Tablet 1 {tbl} 24 h 08/17/2024 Ascorbic Acid Oral Tablet 500 MG 500 mg 12 h 08/29/2024 MiraLax Oral Powder 17 GM/SCOOP 1 24 h 08/29/2024 Eliquis Oral Tablet 2.5 MG 2.5 mg 12 h 08/29/2024 Nystatin External Powder [id number] UNIT/GM 08/29/2024 Melatonin Oral Tablet 10 MG 10 mg 08/29/2024 Acetaminophen Tablet 325 MG 3 {tbl} 08/27/2024 Acetaminophen Tablet 325 MG 3 {tbl} 08/16/2024 Thiamine Mononitrate Oral Tablet 100 MG 100 mg 24 h 08/29/2024 Senna Oral Tablet 2 {tbl} 08/29/2024 Colace Oral Capsule 100 MG 100 mg 12 h 08/29/2024 Doxazosin Mesylate Oral Tablet 2 MG 4 mg 08/29/2024 Albuterol Sulfate Nebulization Solution (2.5 MG/3ML) 0.083% 1 08/16/2024 Fleet Enema Enema 7-19 GM/118ML 1 {Dose} 08/16/2024 Milk of Magnesia Suspension 400 MG/5ML 30 mL 08/16/2024 Bisacodyl Suppository 10 MG 1 08/16/2024 Omeprazole Oral Tablet Delayed Release 20 MG 20 mg 12 h 08/29/2024 Famotidine Oral Tablet 20 MG 20 mg 08/29/2024 Lactobacillus Oral Tablet 1 {Capsule} 12 h 08/29/2024 Levothyroxine Sodium Oral Tablet 100 MCG 1 {tbl} 08/29/2024 Polyvinyl Alcohol Ophthalmic Solution 1.4 % 1 [drp] 08/16/2024 amLODIPine Besylate Oral Tablet 10 MG 10 mg 24 h 08/29/2024 Cold & Hot Medicated External Patch 5 % 08/29/2024 Zofran Oral Tablet 4 MG 4 mg 08/16/2024 Zinc Oral Tablet 50 mg 08/29/2024 Santyl External Ointment 250 UNIT/GM 08/17/2024 Santyl External Ointment 250 UNIT/GM 08/16/2024 Multivitamin-Minerals Oral Tablet 1 {tbl} 08/29/2024 Ultram Oral Tablet 50 MG 50 mg 08/29/2024 Sodium Hypochlorite External Solution 0.25 % Other / See Progress Notes?? 08/29/2024 Santyl External Ointment 250 UNIT/GM 08/29/2024 Problems Problem Status Start Date End Date URINARY TRACT INFECTION, SIT E NOT SPECIFIED (Primary) (N39.0 - ICD-10-CM) ACTIVE 08/16/2024 URINARY TRACT INFECTION, SIT E NOT SPECIFIED (Primary) (N39.0 - ICD-10-CM) RESOLVED 07/10/2024 08/19/2024 OTHER ENCEPHALOPATHY (G93.49 - ICD-10-CM) ACTIVE 08/16/2024 EXTENDED SPECTRUM BETA LACTA MAGGY (ESBL) RESISTANCE (Z16.12 - ICD-10-CM) RESOLVED 07/10/2024 08/19/2024 PRESSURE ULCER OF SACRAL REG ION, STAGE 4 (L89.154 - ICD-10-CM) ACTIVE 08/16/2024 BACTEREMIA (R78.81 - ICD-10-CM) RESOLVED 08/19/2024 PRESSURE ULCER OF RIGHT HEEL , UNSTAGEABLE (L89.610 - ICD-10-CM) ACTIVE 08/16/2024 OTHER ESCHERICHIA COLI [E. C MATEUS] THE CAUSE OF DISEASES CLASSIFIED ELSEWHERE (B96.29 - ICD-10-CM) RESOLVED 5 08/19/2024 PRESSURE ULCER OF RIGHT ANKL E, UNSTAGEABLE (L89.510 - ICD-10-CM) ACTIVE 08/16/2024 OTHER HYDRONEPHROSIS (N13.39 - ICD-10-CM) RESOLVED 07/10/2024 08/19/2024 PRESSURE ULCER OF LEFT ANKLE , STAGE 1 (L89.521 - ICD-10-CM) ACTIVE 08/16/2024 PAROXYSMAL ATRIAL FIBRILLATION (I48.0 - ICD-10-CM) ACT JAY 07/10/2024 CHRONIC KIDNEY DISEASE, STAG E 3 UNSPECIFIED (N18.30 - ICD-10-CM) ACTIVE 07/10/2024 PRESENCE OF UROGENITAL IMPLANTS (Z96.0 - ICD-10-CM) RE SOLVED 07/10/2024 07/23/2024 UNSPECIFIED DEMENTIA, UNSPEC IFIED SEVERITY, WITHOUT BEHAVIORAL DISTURBANCE, PSYCHOTIC DISTURBANCE, MOOD DISTURBANCE, AND ANXIETY (F03.90 - ICD-10-CM) ACTIVE 07/10/2024 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) ACTIVE 08/20/2024 NONRHEUMATIC AORTIC (VALVE) STENOSIS (I35.0 - ICD-10-CM) ACTIVE 08/20/2024 MUSCLE WEAKNESS (GENERALIZED) (M62.81 - ICD-10-CM) ACT JAY 08/16/2024 OTHER ABNORMALITIES OF GAIT AND MOBILITY (R26.89 - ICD-10-CM) ACTIVE 08/16/2024 PERSONAL HISTORY OF OTHER ME NTAL AND BEHAVIORAL DISORDERS (Z86.59 - ICD-10-CM) RESOLVED 07/15/2024 PERSONAL HISTORY OF OTHER ME NTAL AND BEHAVIORAL DISORDERS (Z86.59 - ICD-10-CM) ACTIVE 07/10/2024 HYPERTENSIVE CHRONIC KIDNEY DISEASE WITH STAGE 1 THROUGH STAGE 4 CHRONIC KIDNEY DISEASE, OR UNSPECIFIED CHRONIC KIDNEY DISEASE (I12.9 - ICD-10-CM) ACTIVE 07/10/2024 GASTROSTOMY STATUS (Z93.1 - ICD-10-CM) ACTIVE DYSPHAGIA, OROPHARYNGEAL PHASE (R13.12 - ICD-10-CM) AC TIVE 07/10/2024 MUSCLE WEAKNESS (GENERALIZED) (M62.81 - ICD-10-CM) RES OLVED 07/10/2024 08/19/2024 OTHER ABNORMALITIES OF GAIT AND MOBILITY (R26.89 - ICD-10-CM) RESOLVED 07/10/2024 08/19/2024 UNSPECIFIED LACK OF COORDINATION (R27.9 - ICD-10-CM) R ESOLVED 07/10/2024 08/19/2024 UNSPECIFIED ESCHERICHIA COLI [E. COLI] THE CAUSE OF DISEASES CLASSIFIED ELSEWHERE (B96.20 - ICD-10-CM) RESOLVED 08/19/2024 PRESSURE ULCER OF SACRAL REG ION, STAGE 3 (L89.153 - ICD-10-CM) RESOLVED 07/10/2024 08/19/2024 ACUTE ON CHRONIC COMBINED SY STOLIC (CONGESTIVE) AND DIASTOLIC (CONGESTIVE) HEART FAILURE (I50.43 - ICD-10-CM) ACTIVE 07/10/2024 UNSPECIFIED ATRIAL FIBRILLATION (I48.91 - ICD-10-CM) R ESOLVED 07/10/2024 07/11/2024 ESSENTIAL (PRIMARY) HYPERTENSION (I10 - ICD-10-CM) RES OLVED 07/10/2024 07/11/2024 HYPERLIPIDEMIA, UNSPECIFIED (E78.5 - ICD-10-CM) ACTIVE 07/10/2024 GASTRO-ESOPHAGEAL REFLUX DIS EASE WITHOUT ESOPHAGITIS (K21.9 - ICD-10-CM) ACTIVE 07/10/2024 CHRONIC SYSTOLIC (CONGESTIVE ) HEART FAILURE (I50.22 - ICD-10-CM) ACTIVE 07/10/2024 HYPOTHYROIDISM, UNSPECIFIED (E03.9 - ICD-10-CM) ACTIVE 07/10/2024 OBSTRUCTIVE SLEEP APNEA (ANNE MARIE LT) (PEDIATRIC) (G47.33 - ICD-10-CM) ACTIVE 07/10/2024 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 (N13.2 - ICD-10-CM) ACTIVE 07/10/2024 ENCOUNTER FOR FITTING AND AD JUSTMENT OF URINARY DEVICE (Z46.6 - ICD-10-CM) ACTIVE 07/10/2024 ANEMIA, UNSPECIFIED (D64.9 - ICD-10-CM) ACTIVE 0 08/22/2024 Encounters Encounter Performer Performer Role Encounter Diagnoses Location Date Discharge - [facility] 07/10/2024 02:07 pm EST - 08/13/2024 12:00 am EST Leave - [facility] 08/16/2024 04:00 pm EST - 08/29/2024 02:25 pm EST Immunizations Vaccine Date Influenza-High Dose(Flublok) 04/08/2024 12:00 am EDT Social History Vital Signs Vital Sign Reading Time Taken heartrate 84 /min 08/29/2024 12:57 pm EST heartrate 73 /min 08/26/2024 08:26 am EST temperature 97.9 [degF] 08/29/2024 12:57 pm EST temperature 97.4 [degF] 08/26/2024 08:25 am EST systolicValue 131 mm[Hg] 08/29/2024 12:56 pm EST diastolicValue 42 mm[Hg] 08/29/2024 12:56 pm EST systolicValue 112 mm[Hg] 08/26/2024 08:26 am EST diastolicValue 49 mm[Hg] 08/26/2024 08:26 am EST painLevel 1 {score} 08/29/2024 10:59 am EST painLevel 7 {score} 08/29/2024 09:19 am EST painLevel 7 {score} 08/29/2024 09:18 am EST painLevel 1 {score} 08/28/2024 11:34 pm EST painLevel 0 {score} 08/28/2024 08:23 pm EST painLevel 0 {score} 08/28/2024 09:22 am EST painLevel 1 {score} 08/27/2024 11:33 pm EST painLevel 0 {score} 08/27/2024 04:15 pm EST painLevel 2 {score} 08/27/2024 09:58 am EST painLevel 2 {score} 08/27/2024 09:58 am EST painLevel 7 {score} 08/27/2024 08:32 am EST painLevel 7 {score} 08/27/2024 08:32 am EST painLevel 0 {score} 08/27/2024 07:25 am EST painLevel 0 {score} 08/26/2024 11:36 pm EST painLevel 0 {score} 08/26/2024 03:48 pm EST painLevel 0 {score} 08/26/2024 01:08 pm EST painLevel 6 {score} 08/26/2024 08:29 am EST painLevel 6 {score} 08/26/2024 08:28 am EST painLevel 1 {score} 08/26/2024 06:45 am EST painLevel 6 {score} 08/26/2024 05:38 am EST painLevel 1 {score} 08/25/2024 11:31 pm EST oxygenSaturation 97 % 08/28/2024 11:4 8 pm EST oxygenSaturation 96 % 08/28/2024 07:1 3 pm EST oxygenSaturation 96 % 08/28/2024 05:2 9 am EST oxygenSaturation 94 % 08/27/2024 10:3 7 pm EST oxygenSaturation 95 % 08/27/2024 06:2 0 am EST oxygenSaturation 95 % 08/26/2024 11:2 8 pm EST oxygenSaturation 94 % 08/26/2024 08:2 6 am EST oxygenSaturation 95 % 08/26/2024 03:0 9 am EST oxygenSaturation 94 % 08/25/2024 08:0 6 pm EST respirations 18 /min 08/28/2024 11:48 pm EST respirations 18 /min 08/28/2024 07:13 pm EST respirations 18 /min 08/28/2024 05:29 am EST respirations 18 /min 08/27/2024 10:37 pm EST respirations 18 /min 08/27/2024 06:20 am EST respirations 18 /min 08/26/2024 11:28 pm EST respirations 18 /min 08/26/2024 08:26 am EST respirations 18 /min 08/26/2024 03:09 am EST respirations 18 /min 08/25/2024 08:06 pm EST
--- OUTSIDE RECORDS SUMMARY | 2024-08-29 16:38 | XMS_ITS | Encounter Summary ---
Author Organization [facility] Address [address] [place] [address] Care Team Providers Care Tungsten Refiner Name Role Phone Uday Sheehan Primary Care Provider [phone] Encounter Details Date Type Department Care Team (Late st Contact Info) Description 03/16/2024 Lab Requisition [facility] [address] [place] [address] Cecilio Bautista PA [address] [place] [address] Acute respiratory failure with hypoxia (HCC); No [...] this encounter Procedures * Due to [place] flo.do law, this organization might not be sharing negative HIV tests. Procedure Name Priority Date/Time Associated Diagnosis Comments VANCOMYCIN, TROUGH Routine 03/16/2024 11 :54 AM EDT Acute respiratory failure with hypoxia (HCC) No diagnosis documented in this encounter Results * Due to [place] flo.do law, this organization might not be sharing negative HIV tests. * (ABNORMAL) Vancomycin, Trough (03/16/2024 11:54 AM EDT) Vancomycin Trough 8.2(L) 10.0 - 20.0 ug/mL 03/16/2024 1:58 PM EDT [facility] Blood Structure of peripheral vein / Unknown 03/16/2024 11:54 AM EDT 03/16/2024 11:54 AM EDT Cecilio ZHU LAB BLOOD ORDERABLES Final R esult [facility] [address] [place] [address], [place] [phone] documented in this encounter Visit Diagnoses Diagnosis [...] documented as of this encounter Care Teams Tungsten Refiner Relationship Specialty Start Date End Date Uday Sheehan [address] [place] [address] [place] [address] PCP - General Internal Medicine 03/27/24 documented as of this encounter
--- OUTSIDE RECORDS SUMMARY | 2024-08-29 16:38 | XMS_ITS ---
Author Organization [facility] Address [address] [place] [address] Care Team Providers Care Belt Operator Name Role Phone Pearl Garcia Primary Care Provider Lucila Phillip [facility] [phone] Encounters Encounter Location Date Provider Diagnosis [facility] [address] [place] [address] 08/15/2024 Lucila Kapoor Plan Of Treatment No Information Progress Notes * Ramon SIMMSDOB:1939 (84 yo M)Acc No.[id number]:08/15/2024 Progress Notes Patient:?ARMANIKAEPINKY Ramon Provider:?Lucila Kapoor DPM :1940???Age:84 Y???Sex:Male Kevin e:08/15/2024 Address:[address] [place] [address] [id number] Pcp:Pearl Garcia Subjective: * Chief Complaints: * ??? * Medical History:? Objective: * Vitals:? Assessment: Plan: * Treatment: * Images: * The named appointment provid er may or may not be the originator of this progress note, and it is not deemed complete until electronically signed by the appointment provider. Sign off status: Pending * Provider:?Lucila Kapoor DPM Date:?0 08/15/2024 Generated for Braeden boyce/Faheather/eTransmitting on:?08/29/2024 04:38 PM EST
--- OUTSIDE RECORDS SUMMARY | 2024-08-29 16:38 | XMS_ITS | Encounter Summary ---
Author Organization [facility] Address [address] [place] [address] Care Team Providers Care Cartridge Gauger Name Role Phone Uday Sheehan Primary Care Provider [phone] Encounter Details Date Type Department Care Team (Late st Contact Info) Description 03/08/2024 Lab Requisition [facility] [address] [place] [address] Lidia Barry, CB [address] [place] [address] Acute respiratory failure with hypoxia (HCC); No [...] SHIGA TOXIN ANTIGENS (LAB ONLY REFLEX) - [facility] Routine 03/08/2024 9:28 AM EDT Acute respiratory [...] Shiga Toxin Antigens (Lab only Reflex) - [facility] (03/08/2024 9:28 AM EDT) [facility] Toxin 1 Negative Negative [facility] 03/09/2024 9:37 AM EDT [facility] EHEC Toxin 2 Negative Negative [facility] 03/09/2024 9:37 AM EDT [facility] Stool Rectal route / Unknown Non-Blood Collection / Unknown 03/08/2024 9:28 AM EDT 03/08/2024 9:28 AM EDT us Lidia Barry FREELANCE COPYWRITER LAB MICROBIOLOGY - GENERAL O RDERABLES Final Result Performing Organization Address [facility] Co de Phone Number [facility] [address] [place] [address] [address] [place] [address], [place] [phone] * Stool Culture (03/08/2024 9:28 AM EDT) Stool Culture Normal stool nohemi: no E. coli O157, Salmonella, Shigella, or Campylobacter isolated [facility] 03/11/2024 8:47 AM EDT [facility] Stool Rectal route / Unknown Non-Blood Collection / Unknown 03/08/2024 9:28 AM EDT 03/08/2024 9:28 AM EDT us Lidia Barry FREELANCE COPYWRITER LAB MICROBIOLOGY - GENERAL O RDERABLES Final Result [facility] [address] [facility] [address] [place] [address], * (ABNORMAL) CBC Auto Differential (03/08/2024 9:28 AM EDT) WBC 9.4 4.8 - 10.8 10*3/uL 03/08/2024 9:58 AM EDT [facility] RBC 3.27(L) 4.70 - 6.10 10*6/uL 03/08/2024 9:58 AM EDT [facility] Hemoglobin 9.1(L) 13.7 - 16.5 g/dL 03/08/2024 9:58 AM EDT [facility] Hematocrit 28.1(L) 40.5 - 48.5 % 03/08/2024 9:58 AM EDT [facility] MCV 85.9 80.0 - 94.0 fL 03/08/2024 9:58 AM EDT [facility] MCH 27.8 26.0 - 34.0 pg 03/08/2024 9:58 AM EDT [facility] MCHC 32.4 31.0 - 36.0 g/dL 03/08/2024 9:58 AM EDT [facility] RDW 15.4(H) 12.0 - 15.0 % 03/08/2024 9:58 AM EDT [facility] RDW Standard Deviation 48.1(H) 35.1 - 43.9 fL 03/08/2024 9:58 AM EDT [facility] Platelets 144 140 - 440 10*3/uL 03/08/2024 9:58 AM EDT [facility] MPV 10.9 9.4 - 12.4 fL 03/08/2024 9:58 AM EDT [facility] Neutrophil % 58.0 50.0 - 75.0 % 03/08/2024 9:58 AM EDT [facility] Immature Grans % 0.6 0.0 - 0.9 % 03/08/2024 9:58 AM EDT [facility] Lymphocyte % 26.8 20.0 - 44.0 % 03/08/2024 9:58 AM EDT [facility] Monocyte % 8.6 0.0 - 14.0 % 03/08/2024 9:58 AM EDT [facility] Eosinophil % 5.7(H) 0.0 - 5.0 % 03/08/2024 9:58 AM EDT [facility] Basophil % 0.3 0.0 - 2.0 % 03/08/2024 9:58 AM EDT [facility] Neutrophil # 5.44 1.80 - 7.70 10*3/uL 03/08/2024 9:58 AM EDT [facility] Immature Grans # 0.06(H) 0.00 - 0.03 10*3/uL 03/08/2024 9:58 AM EDT [facility] Lymphocyte # 2.50 1.00 - 4.75 10*3/uL 03/08/2024 9:58 AM EDT [facility] Monocyte # 0.80 0.00 - 6.00 10*3/uL 03/08/2024 9:58 AM EDT [facility] Eosinophil # 0.50 0.00 - 0.80 10*3/uL 03/08/2024 9:58 AM EDT [facility] Basophil # <0.03 0.00 - 0.20 10*3/uL 03/08/2024 9:58 AM EDT [facility] nRBC % 0.0 0 - 0 /100 WBCs 03/08/2024 9:58 AM EDT [facility] nRBC # <0.01 0.00 - 0.13 10*3/uL 03/08/2024 9:58 AM EDT [facility] Blood Structure of peripheral vein / Unknown Venipuncture / Unknown 03/08/2024 9:28 AM EDT 03/08/2024 9:28 AM EDT us Lidia Barry NP LAB BLOOD ORDERABLES Final R esult Performing Organization Address [facility] Co de Phone Number [facility] [address] [address], [place] [phone] * Magnesium (03/08/2024 9:28 AM EDT) MG 1.8 1.5 - 2.5 mg/dL 03/08/2024 10:10 AM EDT [facility] Blood Structure of peripheral vein / Unknown Venipuncture / Unknown 03/08/2024 9:28 AM EDT 03/08/2024 9:28 AM EDT [facility] BLOOD ORDERABLES Final R esult Performing Organization Address [facility] Co de Phone Number [facility] [address] [address], [place] [phone] * (ABNORMAL) Comprehensive Metabolic Panel (03/08/2024 9:28 AM EDT) NA 138 136 - 145 mmol/L 03/08/2024 10:10 AM EDT [facility] K 3.8 3.5 - 5.1 mmol/L 03/08/2024 10:10 AM EDT [facility] Cl 104 98 - 109 mmol/L 03/08/2024 10:10 AM EDT [facility] CO2 23 23 - 32 mmol/L 03/08/2024 10:10 AM EDT [facility] Anion Gap 15 >=0 03/08/2024 10:10 AM EDT [facility] Glucose 107(H) 60 - 99 mg/dL 03/08/2024 10:10 AM EDT [facility] Creatinine 1.20(H) 0.50 - 1.12 mg/dL 03/08/2024 10:10 AM EDT [facility] Calcium 9.1 8.4 - 10.4 mg/dL 03/08/2024 10:10 AM EDT [facility] Total Protein 6.5(L) 6.6 - 8.7 g/dL 03/08/2024 10:10 AM EDT [facility] Albumin 3.2(L) 3.5 - 5.0 g/dL 03/08/2024 10:10 AM EDT [facility] Bilirubin, Total 0.5 0.2 - 1.2 mg/dL 03/08/2024 10:10 AM EDT [facility] Alkaline Phosphatase 111 40 - 129 U/L 03/08/2024 10:10 AM EDT [facility] AST 29 0 - 40 U/L 03/08/2024 10:10 AM EDT [facility] ALT 34 <=41 U/L 03/08/2024 10:10 AM EDT [facility] BUN 27(H) 8 - 23 mg/dL 03/08/2024 10:10 AM EDT [facility] eGFR 60 >=60 mL/min/1. 73m2 03/08/2024 10:10 AM EDT [facility] Comment:The estimated glomer ular filtration [...] - 4.2 g/dL 03/08/2024 10:10 AM EDT [facility] A/G Ratio 1.0(L) 1.5 - 3.0 03/08/2024 10:10 AM EDT [facility] Blood Structure of peripheral vein / Unknown Venipuncture / Unknown 03/08/2024 9:28 AM EDT 03/08/2024 9:28 AM EDT us Lidia Rainville FREELANCE COPYWRITER LAB BLOOD ORDERABLES Final R esult [facility] [address] [place] [address], documented in this encounter Visit Diagnoses Diagnosis [...] documented as of this encounter Care Teams Cartridge Gauger Relationship Specialty Start Date End Date Uday Sheehan [address] [place] [address] [place] [address] PCP - General Internal Medicine 03/27/24 documented as of this encounter
--- OUTSIDE RECORDS SUMMARY | 2024-08-29 16:38 | XMS_ITS | Encounter Summary ---
Author Organization [facility] Address [address] [place] [address] Care Team Providers Care Watershed Engineer Name Role Phone Uday Sheehan MD Primary Care Provider [phone] Encounter Details Date Type Department Care Team (Late st Contact Info) Description 08/28/2024 Lab Requisition [facility] [address] [place] [address] Tabby Bledsoe MD [address] [address] Anemia, unspecified Social History Tobacco Use Types [...] Associated Diagnosis Comments COMPLETE BLOOD COUNT Routine 08/29/2024 5:17 AM EST Anemia, unspecified documented in this encounter Results * (ABNORMAL) Complete blood count (08/29/2024 5:17 AM EST) WBC 6.4 4.8 - 10.8 K/[facility] HEMETOLOGY METHOD 08/29/2024 11:12 AM EST [facility] RBC 2.50(L) 4.50 - 5.50 M/[facility] HEMETOLOGY METHOD 08/29/2024 11:12 AM EST [facility] Hemoglobin 6.6(L) 13.5 - 17.5 g/dL LAB HEMETOLOGY METHOD 08/29/2024 11:[address] [facility] Hematocrit 22.9(L) 42.0 - 54.0 % LAB HEMETOLOGY METHOD 08/29/2024 11:[address] [facility] MCV 93.5 79.0 - 98.0 [place] LAB HEMETOLOGY METHOD 08/29/2024 11:[address] [facility] MCH 26.9(L) 27.0 - 32.0 pcg LAB HEMETOLOGY METHOD 08/29/2024 11:[address] [facility] MCHC 28.8(L) 32.0 - 37.0 g/dL LAB HEMETOLOGY METHOD 08/29/2024 11:[address] [facility] RDW 18.0(H) 11.0 - 15.0 % LAB HEMETOLOGY METHOD 08/29/2024 11:[address] [facility] Platelets 292 130 - 400 K/mcL LAB HEMETOLOGY METHOD 08/29/2024 11:[address] [facility] MPV 9.3 7.0 - 11.0 [place] LAB HEMETOLOGY METHOD 08/29/2024 11:[address] [facility] NRBC 0.0 <1.0 % LAB HEMETOLOGY METHOD 08/29/2024 11:[address] [facility] NRBC Absolute 0.00 <0.10 K/mcL LAB HEMETOLOGY METHOD 08/29/2024 11:[address] 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
--- OUTSIDE RECORDS SUMMARY | 2024-08-29 16:38 | XMS_ITS | Encounter Summary ---
Author Organization [facility] Address [address] [place] [address] Care Team Providers Care Electronic Warfare Technician Name Role Phone Uday Sheehan Primary Care Provider [phone] Encounter Details Date Type Department Care Team (Late st Contact Info) Description 03/17/2024 Lab Requisition [facility] [address] [place] [phone] No diagnosis Social History Tobacco Use Types [...] documented as of this encounter Care Teams Electronic Warfare Technician Relationship Specialty Start Date End Date Uday Sheehan [address] [place] [address] dr Donna Thompson [place] [address] PCP - General Internal Medicine 03/27/24 documented as of this encounter
--- OUTSIDE RECORDS SUMMARY | 2024-08-29 16:38 | XMS_ITS | Encounter Summary ---
Author Organization [facility] Address [address] [place] [address] Phone Care Team Providers Care Wire Coating Machine Operator Name Role Phone Uday Sheehan MD Primary Care Provider [phone] Encounter Details Date Type Department Care Team (Late st Contact Info) Description 09/08/2023 Documentation Only [facility], [address] [place] [address] [place] [address] [place] [address] Social History Tobacco Use Types [...] on filedocumented in this encounter Care Teams Wire Coating Machine Operator Relationship Specialty Start Date End Date Uday Sheehan MD [address] [place] PCP - General 05/14/19 documented as of this encounter
--- OUTSIDE RECORDS SUMMARY | 2024-08-29 16:38 | XMS_ITS | Clinical Summary ---
Author Organization [address] Address [address] [place] [address] Phone Care Team Providers Care Ware Tester Name Role Phone Uday Sheehan MD Primary Care Provider [phone] Encounters Date Type Department Care Team Description 08/28/2024 Lab Requisition [facility] [address] [place] [address] Tabby Bledsoe MD Anemia, unspecified 08/24/2024 Lab Requisition [facility] [address] [place] [address] Tabby Bledsoe MD Bacteremia; Heart failure, unspecified (CMS/HCC); Pressure ulcer of unspecified site, unspecified stage 08/21/2024 Lab Requisition [facility] [address] [place] [address] Tabby Bledsoe MD Anemia, unspecified 08/18/2024 Lab Requisition [facility] [address] [place] [address] Tabby Bledsoe MD Bacteremia 08/09/2024 Lab Requisition [facility] [address] [place] [address] Tabby Bledsoe MD Bacteremia 08/05/2024 Lab Requisition [facility] [address] [place] [address] Tabby Bledsoe MD Urinary tract infection, site not specified 08/03/2024 Lab Requisition [facility] Lab [address] [place] [address] Tabby Bledsoe MD Bacteremia 07/27/2024 Lab Requisition [facility] Main Lab [address] [place] [address] Tabby Bledsoe MD Bacteremia 07/19/2024 Lab Requisition [facility] Main Lab [address] [place] [address] Tabby Bledsoe MD Bacteremia 07/15/2024 Lab Requisition [facility] [address] [place] [address] Tabby Bledsoe MD Essential (primary) hypertension; Hypothyroidism, unspecified; Unspecified atrial fibrillation (CMS/HCC) 07/12/2024 Lab Requisition [facility] Lab [address] [place] [address] Tabby Bledsoe MD Bacteremia 07/11/2024 Lab Requisition [facility] [address] [place] [address] Tabby Bledsoe MD Acute kidney failure, unspecified (CMS/HCC) 06/26/2024 Lab Requisition [facility] [address] [place] [address] Natanael Rodney PA Anemia, unspecified 06/23/2024 Lab Requisition [facility] Main Lab [address] [place] [address] Pearl Garcia MD Other retention of urine 06/21/2024 Lab Requisition [facility] [address] [place] [address] Pearl Garcia MD Unspecified atrial fibrillation (CMS/HCC); Essential (primary) hypertension 06/21/2024 Lab Requisition [facility] Main Lab [address] [place] [phone] Zak Zuluaga MD Unspecified kidney failure; COVID-19 06/15/2024 Lab Requisition [facility] Lab [address] [place] [phone] Zak Zuluaga MD Unspecified atrial fibrillation (CMS/HCC); Essential (primary) hypertension 06/13/2024 Lab Requisition [facility] [address] [place] [phone] Natanael Rodney MD Anemia, unspecified 06/12/2024 Lab Requisition [facility] [address] [place] [phone] Pearl Garcia MD Abnormal results of liver function studies; Hypothyroidism, unspecified 06/11/2024 Lab Requisition [facility] [address] [place] [phone] Zak Zuluaga MD Anemia, unspecified 06/07/2024 Lab Requisition [facility] [address] [place] [phone] Zak Zuluaga MD Unspecified atrial fibrillation (CMS/HCC); Essential (primary) hypertension 06/05/2024 Lab Requisition [facility] [address] [place] [phone] Natanael Rodney MD Chronic kidney disease, unspecified; Essential (primary) hypertension; Unspecified atrial fibrillation (CMS/HCC) 06/03/2024 Lab Requisition [facility] [address] [place] [phone] Zak Zuluaga MD Hypothyroidism, unspecified; Essential (primary) [...] Comments DTaP,Tdap,and Td Vaccines (1 - Tdap) 02/15/1959 Pneumococcal Vaccine: 50+ Years (1 of 1 - PCV) 02/15/1990 Zoster Vaccines (1 of 2) 02/15/1990 RSV Immunization Patients 60+ Years Old (1 - 1-dose 75+ series) 02/15/2015 Cholesterol Screening (Lipid Panel) 08/08/2023 Depression Screening 08/08/2023 Falls Risk Assessment 08/08/2023 Medicare Annual Wellness Visit 08/08/2023 Social Influencers of Health Screening 08/08/2023 COVID-19 Vaccine ( season) 2024 11/09/2021, 04/05/2021 Hypertension/CHF/CAD Annual BMP Blood Test 08/26/2025 08/26/2024, 08/21/2024, 08/19/2024, Additional history exists Influenza Vaccine Completed 04/08/2024 [...] Routine 08/29/2024 5:17 AM EST Anemia, unspecified PREALBUMIN Routine 08/26/2024 7:46 AM EST Bacteremia Heart failure, unspecified (CMS/HCC) Pressure ulcer of unspecified site, unspecified stage COMPREHENSIVE METABOLIC PANEL Routine 08/26/2024 7:46 AM EST Bacteremia Heart failure, unspecified (CMS/HCC) Pressure ulcer of unspecified site, unspecified stage COMPLETE BLOOD COUNT Routine 08/26/2024 7:46 AM EST Bacteremia Heart failure, unspecified (CMS/HCC) Pressure ulcer of unspecified site, unspecified stage BASIC METABOLIC PANEL Routine 08/21/2024 7:55 AM EST Anemia, unspecified COMPLETE BLOOD COUNT Routine 08/21/2024 7:55 AM EST Anemia, unspecified COMPREHENSIVE METABOLIC PANEL Routine 08/19/2024 8:46 AM [...] Months Results * (ABNORMAL) Complete blood count (08/29/2024 5:17 AM EST) Only the most recent of17 resultswithin the time period is included. WBC 6.4 4.8 - 10.8 K/mcL LAB HEMETOLOGY METHOD 08/29/2024 11:12 AM EST [facility] RBC 2.50(L) 4.50 - 5.50 M/mcL LAB HEMETOLOGY METHOD 08/29/2024 11:12 AM EST [facility] Hemoglobin 6.6(L) 13.5 - 17.5 g/dL LAB HEMETOLOGY METHOD 08/29/2024 11:12 AM EST [facility] Hematocrit 22.9(L) 42.0 - 54.0 % LAB HEMETOLOGY METHOD 08/29/2024 11:12 AM [facility] MCV 93.5 79.0 - 98.0 FL LAB HEMETOLOGY METHOD 08/29/2024 11:12 AM [facility] MCH 26.9(L) 27.0 - 32.0 pcg LAB HEMETOLOGY METHOD 08/29/2024 11:12 AM [facility] MCHC 28.8(L) 32.0 - 37.0 g/dL LAB HEMETOLOGY METHOD 08/29/2024 11:12 AM [facility] RDW 18.0(H) 11.0 - 15.0 % LAB HEMETOLOGY METHOD 08/29/2024 11:12 AM [facility] Platelets 292 130 - 400 K/mcL LAB HEMETOLOGY METHOD 08/29/2024 11:12 AM EST [facility] MPV 9.3 7.0 - 11.0 FL LAB HEMETOLOGY METHOD 08/29/2024 11:12 AM [facility] NRBC 0.0 <1.0 % LAB HEMETOLOGY METHOD 08/29/2024 11:12 AM [facility] NRBC Absolute 0.00 <0.10 K/mcL LAB HEMETOLOGY METHOD 08/29/2024 11:12 AM [facility] Blood Venous blood specimen / Unknown Venipuncture / Unknown 08/29/2024 5:17 AM EST 08/29/2024 10:46 AM EST us Tabby Bledsoe MD LAB BLOOD ORDERABLES Fin al Result [facility] [address] [place] [address], * (ABNORMAL) Prealbumin (08/26/2024 7:46 AM EST) Prealbumin 9(L) 18 - 45 mg/dL LAB CHEMISTRY METHOD 08/26/2024 11:01 AM [facility] Blood Venous blood specimen / Unknown Venipuncture / Unknown 08/26/2024 7:46 AM EST 08/26/2024 10:11 AM EST us Tabby Bledsoe MD LAB BLOOD ORDERABLES Fin al Result [facility] [address] [place] [address], * (ABNORMAL) Comprehensive metabolic panel (08/26/2024 7:46 AM EST) Only the most recent of12 resultswithin the time period is included. Pathologist [facility] Sodium 139 133 - 145 mmol/L LAB CHEMISTRY METHOD 08/26/2024 11:03 AM [facility] Potassium 4.3 3.5 - 5.5 mmol/L LAB CHEMISTRY METHOD 08/26/2024 11:03 AM [facility] Chloride 105 96 - 110 mmol/L LAB CHEMISTRY METHOD 08/26/2024 11:03 AM [facility] CO2 29 21 - 32 mmol/L LAB CHEMISTRY METHOD 08/26/2024 11:03 AM [facility] Anion Gap 5 3 - 11 LAB CHEMISTRY METHOD 08/26/2024 11:03 AM [facility] Glucose 81 70 - 100 mg/dL LAB CHEMISTRY METHOD 08/26/2024 11:03 AM [facility] BUN 24 5 - 25 mg/dL LAB CHEMISTRY METHOD 08/26/2024 11:03 AM [facility] Creatinine 1.43(H) 0.70 - 1.30 mg/dL LAB CHEMISTRY METHOD 08/26/2024 11:03 AM [facility] eGFR 48(L) >=60 mL/min/1. 73m2 LAB CHEMISTRY METHOD 08/26/2024 11:03 AM [facility] Comment:Calculation based on the??Chronic Kidney Disease Epidemiology Collaboration (CKD-EPI) equation refit??without adjustment for race. BUN/Creatinine Ratio 16.8 LAB CHEMISTRY METHOD 08/26/2024 11:03 AM [facility] Calcium 8.1(L) 8.5 - 10.5 mg/dL LAB CHEMISTRY METHOD 08/26/2024 11:03 AM [facility] AST (SGOT) 23 10 - 42 unit/L LAB CHEMISTRY METHOD 08/26/2024 11:03 AM [facility] ALT (SGPT) 18 10 - 60 unit/L LAB CHEMISTRY METHOD 08/26/2024 11:03 AM [facility] Alkaline Phosphatase 88 42 - 121 unit/L LAB CHEMISTRY METHOD 08/26/2024 11:03 AM [facility] Total Protein 5.4(L) 6.0 - 8.0 g/dL LAB CHEMISTRY METHOD 08/26/2024 11:03 AM [facility] Albumin 1.3(L) 3.2 - 5.0 g/dL LAB CHEMISTRY METHOD 08/26/2024 11:03 AM [facility] Total Bilirubin 0.4 0.0 - 1.4 mg/dL LAB CHEMISTRY METHOD 08/26/2024 11:03 AM [facility] Blood Venous blood specimen / Unknown Venipuncture / Unknown 08/26/2024 7:46 AM EST 08/26/2024 10:11 AM EST us Tabby Bledsoe MD LAB BLOOD ORDERABLES Fin al Result [facility] [address] [place] [address], * (ABNORMAL) Basic metabolic panel (08/21/2024 7:55 AM EST) Only the most recent of3 resultswithin the time period is included. Sodium 142 133 - 145 mmol/L LAB CHEMISTRY METHOD 08/21/2024 11:26 AM [facility] Potassium 3.8 3.5 - 5.5 mmol/L LAB CHEMISTRY METHOD 08/21/2024 11:26 AM [facility] Chloride 109 96 - 110 mmol/L LAB CHEMISTRY METHOD 08/21/2024 11:26 AM [facility] CO2 30 21 - 32 mmol/L LAB CHEMISTRY METHOD 08/21/2024 11:26 AM [facility] Anion Gap 3 3 - 11 LAB CHEMISTRY METHOD 08/21/2024 11:26 AM [facility] Glucose 100 70 - 100 mg/dL LAB CHEMISTRY METHOD 08/21/2024 11:26 AM [facility] BUN 22 5 - 25 mg/dL LAB CHEMISTRY METHOD 08/21/2024 11:26 AM [facility] Creatinine 1.38(H) 0.70 - 1.30 mg/dL LAB CHEMISTRY METHOD 08/21/2024 11:26 AM [facility] eGFR 50(L) >=60 mL/min/1. 73m2 LAB CHEMISTRY METHOD 08/21/2024 11:26 AM [facility] Comment:Calculation based on the??Chronic Kidney Disease Epidemiology Collaboration (CKD-EPI) equation refit??without adjustment for race. BUN/Creatinine Ratio 15.9 LAB CHEMISTRY METHOD 08/21/2024 11:26 AM [facility] Calcium 8.5 8.5 - 10.5 mg/dL LAB CHEMISTRY METHOD 08/21/2024 11:26 AM [facility] Blood Venous blood specimen / Unknown Venipuncture / Unknown 08/21/2024 7:55 AM EST 08/21/2024 10:41 AM EST us Tabby Bledsoe MD LAB BLOOD ORDERABLES Fin al Result [facility] [address] [place] [address], [place] [phone] * (ABNORMAL) Urinalysis with reflex microscopic and culture (08/03/2024 7:00 AM EST) Specific [place] Urine 1.014 1.003 - 1.030 LAB URINALYSIS - AUTOMATED METHOD 08/05/2024 1:39 PM [facility] pH, Urine 5.5 5.0 - 8.0 pH LAB URINALYSIS - AUTOMATED METHOD 08/05/2024 1:39 PM [facility] Leukocytes, Urine Large(A) Negative LAB URINALYSIS - AUTOMATED METHOD 08/05/2024 1:39 PM [facility] Nitrite, Urine Negative Negative LAB URINALYSIS - AUTOMATED METHOD 08/05/2024 1:39 PM [facility] Protein, Urine 30(A) <=Trace mg/dL LAB URINALYSIS - AUTOMATED METHOD 08/05/2024 1:39 PM [facility] Glucose, Urine Negative Negative mg/dL LAB URINALYSIS - AUTOMATED METHOD 08/05/2024 1:39 PM [facility] Ketones, Urine Negative Negative mg/dL LAB URINALYSIS - AUTOMATED METHOD 08/05/2024 1:39 PM [facility] Urobilinogen , Urine 0.2 0.2 - 1.0 mg/dL LAB URINALYSIS - AUTOMATED METHOD 08/05/2024 1:39 PM [facility] Bilirubin, Urine Negative Negative LAB URINALYSIS - AUTOMATED METHOD 08/05/2024 1:39 PM [facility] Blood, Urine Large(A) Negative LAB URINALYSIS - AUTOMATED METHOD 08/05/2024 1:39 PM [facility] RBC, Urine 271.0(H) 0 - 4 /HPF LAB URINALYSIS - AUTOMATED METHOD 08/05/2024 1:39 PM [facility] WBC, Urine 1,434.7(H) 0 - 4 /HPF LAB URINALYSIS - AUTOMATED METHOD 08/05/2024 1:39 PM [facility] Squamous Epithelial, Urine 41 0 - 60 /LPF LAB URINALYSIS - AUTOMATED METHOD 08/05/2024 1:39 PM [facility] Crystals, Urine MOD CALCIUM OXALATE /LPF LAB URINALYSIS - AUTOMATED METHOD 08/05/2024 1:39 PM [facility] Bacteria, Urine Many(A) Negative /HPF LAB URINALYSIS - AUTOMATED METHOD 08/05/2024 1:39 PM [facility] Hyaline Casts, Urine 8.1(H) 0 - 3 /LPF LAB URINALYSIS - AUTOMATED METHOD 08/05/2024 1:39 PM [facility] Urine Indwelling urinary catheter / Unknown Non-blood Collection / Unknown 08/03/2024 7:00 AM EST 08/05/2024 11:47 AM EST Tabby Bledsoe MD LAB URINE ORDERABLES Fin al Result [facility] [address] [place] [address], * Espinoza urine culture tube (08/03/2024 7:00 AM EST) Extra Tube Hold for add-ons. 08/05/2024 1:01 PM [facility] Comment:Auto resulted. Urine Indwelling urinary catheter / Unknown Non-blood Collection / Unknown 08/03/2024 7:00 AM EST 08/05/2024 11:47 AM EST Tabby Bledsoe MD LAB URINE ORDERABLES Fin al Result [facility] [address] [place] [address], [place] [phone] * (ABNORMAL) Culture urine (08/03/2024 7:00 AM EST) Only the most recent of2 resultswithin the time period is included. Culture, Urine >100,000 CFU/mL Escherichia coli(A) [place] 08/07/2024 9:46 AM EST [facility] Comment: This is an [...] MICROBIOLOGY - GENER AL ORDERABLES Final Result [facility] [address] [place] [address], [place] [phone] * (ABNORMAL) Urinalysis with reflex microscopic (06/22/2024 12:00 AM EST) Specific [place] Urine 1.013 1.003 - 1.030 LAB URINALYSIS - AUTOMATED METHOD 06/23/2024 12:51 PM [facility] pH, Urine 6.0 5.0 - 8.0 pH LAB URINALYSIS - AUTOMATED METHOD 06/23/2024 12:51 PM [facility] Leukocytes, Urine Large(A) Negative LAB URINALYSIS - AUTOMATED METHOD 06/23/2024 12:51 PM [facility] Nitrite, Urine Negative Negative LAB URINALYSIS - AUTOMATED METHOD 06/23/2024 12:51 PM [facility] Protein, Urine 100(A) <=Trace mg/dL LAB URINALYSIS - AUTOMATED METHOD 06/23/2024 12:51 PM [facility] Glucose, Urine Negative Negative mg/dL LAB URINALYSIS - AUTOMATED METHOD 06/23/2024 12:51 PM [facility] Ketones, Urine Negative Negative mg/dL LAB URINALYSIS - AUTOMATED METHOD 06/23/2024 12:51 PM [facility] Urobilinogen , Urine 0.2 0.2 - 1.0 mg/dL LAB URINALYSIS - AUTOMATED METHOD 06/23/2024 12:51 PM [facility] Bilirubin, Urine Negative Negative LAB URINALYSIS - AUTOMATED METHOD 06/23/2024 12:51 PM [facility] Blood, Urine Large(A) Negative LAB URINALYSIS - AUTOMATED METHOD 06/23/2024 12:51 PM [facility] RBC, Urine 32.8(H) 0 - 4 /HPF LAB URINALYSIS - AUTOMATED METHOD 06/23/2024 12:51 PM [facility] WBC, Urine 3,850.2(H) 0 - 4 /HPF LAB URINALYSIS - AUTOMATED METHOD 06/23/2024 12:51 PM [facility] Squamous Epithelial, Urine 20 0 - 60 /LPF LAB URINALYSIS - AUTOMATED METHOD 06/23/2024 12:51 PM [facility] Bacteria, Urine Many(A) Negative /HPF LAB URINALYSIS - AUTOMATED METHOD 06/23/2024 12:51 PM [facility] Hyaline Casts, Urine 2.9 0 - 3 /LPF LAB URINALYSIS - AUTOMATED METHOD 06/23/2024 12:51 PM [facility] Urine Urine specimen obtained by clean catch procedure / Unknown Non-blood Collection / Unknown 06/22/2024 06/23/2024 11:44 AM EST Pearl Garcia MD LAB URINE ORDERABLES Final Resul t Performing Organization Address City/[facility]/ZIP Co de Phone Number [facility] [address] [place] [address], [place] [phone] * (ABNORMAL) Thyroid stimulating hormone with reflex to free t4 and free t3 (06/13/2024 7:00 AM EST) Only the most recent of2 resultswithin the time period is included. TSH 5.31(H) 0.40 - 4.00 mcIU/mL LAB CHEMISTRY METHOD 06/13/2024 10:28 AM [facility] Blood Venous blood specimen / Unknown Venipuncture / Unknown 06/13/2024 7:00 AM EST 06/13/2024 8:28 AM EST us Natanael Rodney MD LAB BLOOD ORDERABLES Final Resu lt Performing Organization Address City/[facility]/ZIP Co de Phone Number [facility] [address] [place] [address], [place] [phone] * Free thyroxine with reflex to free triiodothyronine (06/13/2024 7:00 AM EST) Only the most recent of2 resultswithin the time period is included. Free T4 0.97 0.70 - 1.80 ng/dL LAB CHEMISTRY METHOD 06/13/2024 10:56 AM EST [facility] Blood Venous blood specimen / Unknown Venipuncture / Unknown 06/13/2024 7:00 AM EST 06/13/2024 8:28 AM EST us Natanael Rodney MD LAB BLOOD ORDERABLES Final Resu lt Performing Organization Address City/[facility]/ZIP Co de Phone Number [facility] [address] [place] [address], [place] [phone] * (ABNORMAL) Triiodothyronine free (06/13/2024 7:00 AM EST) Only the most recent of3 resultswithin the time period is included. T3, Free 163(L) 230 - 420 pcg/dL LAB CHEMISTRY METHOD 06/13/2024 11:42 AM EST [facility] Blood Venous blood specimen / Unknown Venipuncture / Unknown 06/13/2024 7:00 AM EST 06/13/2024 8:28 AM EST us Natanael Rodney MD LAB BLOOD ORDERABLES Final Resu lt Performing Organization Address City/[facility]/ZIP Co de Phone Number [facility] [address] [place] [address], * (ABNORMAL) Alanine aminotransferase (06/12/2024 9:20 AM EST) ALT (SGPT) 127(H) 10 - 60 unit/L LAB CHEMISTRY METHOD 06/12/2024 12:03 PM EST [facility] Blood Venous blood specimen / Unknown Venipuncture / Unknown 06/12/2024 9:20 AM EST 06/12/2024 11:19 AM EST us Pearl Garcia MD LAB BLOOD ORDERABLES Final Resul t Performing Organization Address [facility]/ZIP Co de Phone Number [facility] [address] [place] [address], * (ABNORMAL) Aspartate aminotransferase (06/12/2024 9:20 AM EST) AST (SGOT) 185(H) 10 - 42 unit/L LAB CHEMISTRY METHOD 06/12/2024 12:04 PM EST [facility] Blood Venous blood specimen / Unknown Venipuncture / Unknown 06/12/2024 9:20 AM EST 06/12/2024 11:19 AM EST us Pearl Garcia MD LAB BLOOD ORDERABLES Final Resul t Performing Organization Address [facility] de Phone Number [facility] [address] [place] [address], * (ABNORMAL) Thyroid stimulating hormone (06/12/2024 9:20 AM EST) TSH 4.91(H) 0.40 - 4.00 mcIU/mL LAB CHEMISTRY METHOD 06/12/2024 12:15 PM EST [facility] Blood Venous blood specimen / Unknown Venipuncture / Unknown 06/12/2024 9:20 AM EST 06/12/2024 11:19 AM EST us Pearl Garcia MD LAB BLOOD ORDERABLES Final Resul t Performing Organization Address [facility] Co de Phone Number [facility] [address] [place] [address], * Thyroxine free (06/12/2024 9:20 AM EST) Free T4 1.02 0.70 - 1.80 ng/dL LAB CHEMISTRY METHOD 06/12/2024 12:15 PM EST [facility] Blood Venous blood specimen / Unknown Venipuncture / Unknown 06/12/2024 9:20 AM EST 06/12/2024 11:19 AM EST us Pearl Garcia MD LAB BLOOD ORDERABLES Final Resul t [facility] [address] [place] [address], from Last 3 Months Additional Health Concerns Infection Onset 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
--- OUTSIDE RECORDS SUMMARY | 2024-08-29 16:38 | XMS_ITS | Encounter Summary ---
Author Organization [facility] Address [address] [place] [address] Care Team Providers Care Frame Hand Name Role Phone Uday Sheehan Primary Care Provider Encounter Details Date Type Department Care Team (Late st Contact Info) Description 03/07/2024 Lab Requisition [facility] Lab [address] [place] [address] Valarie Pierson MD [address] [place] [address] Acute and chronic respiratory failure with hypoxia [...] - 10.8 10*3/uL 03/07/2024 12:12 PM EDT [facility] RBC 3.39(L) 4.70 - 6.10 10*6/uL 03/07/2024 12:12 PM EDT [facility] Hemoglobin 9.4(L) 13.7 - 16.5 g/dL 03/07/2024 12:12 PM EDT [facility] Hematocrit 29.9(L) 40.5 - 48.5 % 03/07/2024 12:12 PM EDT [facility] MCV 88.2 80.0 - 94.0 fL 03/07/2024 12:12 PM EDT [facility] MCH 27.7 26.0 - 34.0 pg 03/07/2024 12:12 PM EDT [facility] MCHC 31.4 31.0 - 36.0 g/dL 03/07/2024 12:12 PM EDT [facility] RDW 15.5(H) 12.0 - 15.0 % 03/07/2024 12:12 PM EDT [facility] RDW Standard Deviation 50.0(H) 35.1 - 43.9 fL 03/07/2024 12:12 PM EDT [facility] Platelets 174 140 - 440 10*3/uL 03/07/2024 12:12 PM EDT [facility] MPV 10.5 9.4 - 12.4 fL 03/07/2024 12:12 PM EDT [facility] Neutrophil % 59.4 50.0 - 75.0 % 03/07/2024 12:12 PM EDT [facility] Immature Grans % 0.7 0.0 - 0.9 % 03/07/2024 12:12 PM EDT [facility] Lymphocyte % 23.8 20.0 - 44.0 % 03/07/2024 12:12 PM EDT [facility] Monocyte % 9.9 0.0 - 14.0 % 03/07/2024 12:12 PM EDT [facility] Eosinophil % 5.7(H) 0.0 - 5.0 % 03/07/2024 12:12 PM EDT [facility] Basophil % 0.5 0.0 - 2.0 % 03/07/2024 12:12 PM EDT [facility] Neutrophil # 5.82 1.80 - 7.70 10*3/uL 03/07/2024 12:12 PM EDT [facility] Immature Grans # 0.07(H) 0.00 - 0.03 10*3/uL 03/07/2024 12:12 PM EDT [facility] Lymphocyte # 2.30 1.00 - 4.75 10*3/uL 03/07/2024 12:12 PM EDT [facility] Monocyte # 1.00 0.00 - 6.00 10*3/uL 03/07/2024 12:12 PM EDT [facility] Eosinophil # 0.60 0.00 - 0.80 10*3/uL 03/07/2024 12:12 PM EDT [facility] Basophil # 0.10 0.00 - 0.20 10*3/uL 03/07/2024 12:12 PM EDT [facility] nRBC % 0.0 0 - 0 /100 WBCs 03/07/2024 12:12 PM EDT [facility] nRBC # <0.01 0.00 - 0.13 10*3/uL 03/07/2024 12:12 PM EDT [facility] Blood Structure of peripheral vein / Unknown Venipuncture / Unknown 03/07/2024 11:28 AM EDT 03/07/2024 11:28 AM EDT us Valarie Pierson MD LAB BLOOD ORDERABLES Final Res ult [facility] [address] [place] [address], [place] [phone] * (ABNORMAL) Comprehensive Metabolic Panel (03/07/2024 11:28 AM EDT) NA 138 136 - 145 mmol/L 03/07/2024 12:30 PM EDT [facility] K 3.4(L) 3.5 - 5.1 mmol/L 03/07/2024 12:30 PM EDT [facility] Cl 104 98 - 109 mmol/L 03/07/2024 12:30 PM EDT [facility] CO2 23 23 - 32 mmol/L 03/07/2024 12:30 PM EDT [facility] Anion Gap 14 >=0 03/07/2024 12:30 PM EDT [facility] Glucose 135(H) 60 - 99 mg/dL 03/07/2024 12:30 PM EDT [facility] Creatinine 1.28(H) 0.50 - 1.12 mg/dL 03/07/2024 12:30 PM EDT [facility] Calcium 9.4 8.4 - 10.4 mg/dL 03/07/2024 12:30 PM EDT [facility] Total Protein 6.7 6.6 - 8.7 g/dL 03/07/2024 12:30 PM EDT [facility] Albumin 3.3(L) 3.5 - 5.0 g/dL 03/07/2024 12:30 PM EDT [facility] Bilirubin, Total 0.5 0.2 - 1.2 mg/dL 03/07/2024 12:30 PM EDT [facility] Alkaline Phosphatase 112 40 - 129 U/L 03/07/2024 12:30 PM EDT [facility] AST 31 0 - 40 U/L 03/07/2024 12:30 PM EDT [facility] ALT 36 <=41 U/L 03/07/2024 12:30 PM EDT [facility] BUN 35(H) 8 - 23 mg/dL 03/07/2024 12:30 PM EDT [facility] eGFR 55(L) >=60 mL/min/1. 73m2 03/07/2024 12:30 PM EDT [facility] Comment:The estimated glomer ular filtration [...] - 4.2 g/dL 03/07/2024 12:30 PM EDT [facility] A/G Ratio 1.0(L) 1.5 - 3.0 03/07/2024 12:30 PM EDT [facility] Blood Structure of peripheral vein / Unknown Venipuncture / Unknown 03/07/2024 11:28 AM EDT 03/07/2024 11:28 AM EDT Valarie Pierson MD LAB BLOOD ORDERABLES Final Res ult Performing Organization Address City/State/[facility] Co de Phone Number [facility] [address] [place] [address] [address] [place] [address], documented in this encounter Visit Diagnoses Diagnosis [...] documented as of this encounter Care Teams Frame Hand Relationship Specialty Start Date End Date Uday Sheehan [address] [place] [address] dr Donna Thompson, [place] [address] PCP - General Internal Medicine 03/27/24 documented as of this encounter
--- OUTSIDE RECORDS SUMMARY | 2024-08-29 16:38 | XMS_ITS | Clinical Summary ---
Author Organization [facility], Address [address] [place] [address] [place] [address] Phone Care Team Providers Care Secretary Book Keeper Name Role Phone Uday Sheehan MD Primary Care Provider [phone] Allergies Active Allergy Reactions Criticality Noted Date [...] age to complete this topic Insurance MEDICARE [facility] MEDICARE [facility] [address] [id number] Care Teams Secretary Book Keeper Relationship Specialty Start Date End Date Uday Sheehan MD [address] [place], [place] PCP - General 05/14/19
--- OUTSIDE RECORDS SUMMARY | 2024-08-29 16:38 | XMS_ITS | Encounter Summary ---
Author Organization [facility] Address [address] [place] [address] Care Team Providers Care Patrol Judge Name Role Phone Uday Sheehan Primary Care Provider [phone] Encounter Details Date Type Department Care Team (Late st Contact Info) Description 03/18/2024 Lab Requisition [facility] Lab [address] [place] [address] Cecilio Bautista PA [address] [place] [address] Acute respiratory failure with hypoxia (HCC); No [...] - 10.8 10*3/uL 03/18/2024 10:10 AM EDT [facility] RBC 2.81(L) 4.70 - 6.10 10*6/uL 03/18/2024 10:10 AM EDT [facility] Hemoglobin 8.1(L) 13.7 - 16.5 g/dL 03/18/2024 10:10 AM EDT [facility] Hematocrit 23.6(L) 40.5 - 48.5 % 03/18/2024 10:10 AM EDT [facility] MCV 84.0 80.0 - 94.0 fL 03/18/2024 10:10 AM EDT [facility] MCH 28.8 26.0 - 34.0 pg 03/18/2024 10:10 AM EDT [facility] MCHC 34.3 31.0 - 36.0 g/dL 03/18/2024 10:10 AM EDT [facility] RDW 15.1(H) 12.0 - 15.0 % 03/18/2024 10:10 AM EDT [facility] RDW Standard Deviation 45.7(H) 35.1 - 43.9 fL 03/18/2024 10:10 AM EDT [facility] Platelets 159 140 - 440 10*3/uL 03/18/2024 10:10 AM EDT [facility] MPV 10.1 9.4 - 12.4 fL 03/18/2024 10:10 AM EDT [facility] Neutrophil % 55.7 50.0 - 75.0 % 03/18/2024 10:10 AM EDT [facility] Immature Grans % 0.3 0.0 - 0.9 % 03/18/2024 10:10 AM EDT [facility] Lymphocyte % 28.2 20.0 - 44.0 % 03/18/2024 10:10 AM EDT [facility] Monocyte % 12.5 0.0 - 14.0 % 03/18/2024 10:10 AM EDT [facility] Eosinophil % 2.9 0.0 - 5.0 % 03/18/2024 10:10 AM EDT [facility] Basophil % 0.4 0.0 - 2.0 % 03/18/2024 10:10 AM EDT [facility] Neutrophil # 4.10 1.80 - 7.70 10*3/uL 03/18/2024 10:10 AM EDT [facility] Immature Grans # <0.03 0.00 - 0.03 10*3/uL 03/18/2024 10:10 AM EDT [facility] Lymphocyte # 2.10 1.00 - 4.75 10*3/uL 03/18/2024 10:10 AM EDT [facility] Monocyte # 0.90 0.00 - 6.00 10*3/uL 03/18/2024 10:10 AM EDT [facility] Eosinophil # 0.20 0.00 - 0.80 10*3/uL 03/18/2024 10:10 AM EDT [facility] Basophil # <0.03 0.00 - 0.20 10*3/uL 03/18/2024 10:10 AM EDT [facility] nRBC % 0.0 0 - 0 /100 WBCs 03/18/2024 10:10 AM EDT [facility] nRBC # <0.01 0.00 - 0.13 10*3/uL 03/18/2024 10:10 AM EDT [facility] Blood Structure of peripheral vein / Unknown 03/18/2024 9:25 AM EDT 03/18/2024 9:25 AM EDT us Cecilio Badereldin PA LAB BLOOD ORDERABLES Final R esult Performing Organization Address [facility]/ZIP Co de Phone Number [facility] [address] [address], [place] [phone] * Vancomycin, Trough (03/18/2024 9:25 AM EDT) Vancomycin Trough 15.6 10.0 - 20.0 ug/mL 03/18/2024 10:36 AM EDT [facility] Blood Structure of peripheral vein / Unknown 03/18/2024 9:25 AM EDT 03/18/2024 9:25 AM EDT Cecilio Bautista AR LAB BLOOD ORDERABLES Final R esult Performing Organization Address [facility] Co de Phone Number [facility] [address] [address], [place] [phone] * (ABNORMAL) Comprehensive Metabolic Panel (03/18/2024 9:25 AM EDT) NA 135(L) 136 - 145 mmol/L 03/18/2024 10:42 AM EDT [facility] K 3.6 3.5 - 5.1 mmol/L 03/18/2024 10:42 AM EDT [facility] Cl 96(L) 98 - 109 mmol/L 03/18/2024 10:42 AM EDT [facility] CO2 27 23 - 32 mmol/L 03/18/2024 10:42 AM EDT [facility] Anion Gap 16 >=0 03/18/2024 10:42 AM EDT [facility] Glucose 106(H) 60 - 99 mg/dL 03/18/2024 10:42 AM EDT [facility] Creatinine 1.00 0.50 - 1.12 mg/dL 03/18/2024 10:42 AM EDT [facility] Calcium 8.7 8.4 - 10.4 mg/dL 03/18/2024 10:42 AM EDT [facility] Total Protein 6.1(L) 6.6 - 8.7 g/dL 03/18/2024 10:42 AM EDT [facility] Albumin 3.1(L) 3.5 - 5.0 g/dL 03/18/2024 10:42 AM T [facility] Bilirubin, Total 0.5 0.2 - 1.2 mg/dL 03/18/2024 10:42 AM EDT [facility] Alkaline Phosphatase 107 40 - 129 U/L 03/18/2024 10:42 AM EDT [facility] AST 32 0 - 40 U/L 03/18/2024 10:42 AM EDT [facility] ALT 25 <=41 U/L 03/18/2024 10:42 AM T [facility] BUN 21 8 - 23 mg/dL 03/18/2024 10:42 AM T [facility] eGFR 74 >=60 mL/min/1. 73m2 03/18/2024 10:42 AM T [facility] Comment:The estimated glomer ular [...] - 4.2 g/dL 03/18/2024 10:42 AM T [facility] A/G Ratio 1.0(L) 1.5 - 3.0 03/18/2024 10:42 AM T [facility] Blood Structure of peripheral vein / Unknown 03/18/2024 9:25 AM EDT 03/18/2024 9:25 AM EDT us Cecilio ZHU LAB BLOOD ORDERABLES Final R esult [facility] [address] [place] [address], documented in this encounter Visit Diagnoses Diagnosis [...] documented as of this encounter Care Teams Patrol Judge Relationship Specialty Start Date End Date Uday Sheehan [address] [place] [address] [place] [address] PCP - General Internal Medicine 03/27/24 documented as of this encounter
--- OUTSIDE RECORDS SUMMARY | 2024-08-29 16:38 | XMS_ITS | Encounter Summary ---
Author Organization [facility] Address [address] [place] [address] Care Team Providers Care Chuck Splitter Name Role Phone Uday Sheehan Primary Care Provider [phone] Encounter Details Date Type Department Care Team (Late st Contact Info) Description 03/17/2024 Lab Requisition [facility] Lab [address] [place] [address] Cecilio Bautista PA [address] [place] [address] Acute respiratory failure with hypoxia (HCC) Social [...] of this encounter Procedures * Due to [place] Mobile Complete law, this organization might not be sharing negative HIV tests. Procedure Name Priority Date/Time Associated Diagnosis Comments C DIFF TOXIN B PCR W/REFLEX TO [facility] & TOXIN (AMBULATORY) - [facility] Routine 03/17/2024 7:46 AM EDT Acute respiratory failure with hypoxia (HCC) documented in this encounter Results * Due to [place] [employer] law, this organization might not be sharing negative HIV tests. * C diff Toxin B PCR w/Reflex to [facility] & Toxin (03/17/2024 7:46 AM EDT) C diff PCR Not Detected Not Detected CEPHEID [facility]EXPERT 03/17/2024 9:01 AM EDT [facility] Stool Rectal route / Unknown 03/17/2024 7:46 AM EDT 03/17/2024 7:46 AM EDT Narrative [facility] - 03/17/2024 9:01 AM EDT Methodology: Real-time polymerase chain reaction (PCR) to detect the toxin B gene of toxigenic Clostridioides difficile (C. difficile) in unformed (liquid or soft) stool specimens obtained from patients suspected of having C. difficile infections (CDI). us Cecilio Z[facility] LAB BODY FLUIDS AND STOOLS O RDERABLES Final Result [facility] [address] [place] [address] [address] [place] [address], documented in this encounter Visit Diagnoses Diagnosis [...] documented as of this encounter Care Teams Chuck Splitter Relationship Specialty Start Date End Date Uday Sheehan [address] [place] [address] [place] [address] PCP - General Internal Medicine 03/27/24 documented as of this encounter
--- OUTSIDE RECORDS SUMMARY | 2024-08-29 16:38 | XMS_ITS | Encounter Summary ---
Author Organization [facility] Address [address] [place] [address] Care Team Providers Care Flight Kitchen Manager Name Role Phone Uday Sheehan Primary Care Provider [phone] Encounter Details Date Type Department Care Team (Late st Contact Info) Description 03/11/2024 Lab Requisition [facility] Site [address] [place] [address] [phone] Valarie Pierson MD [address] [place] [address] Acute and chronic respiratory failure with hypoxia [...] documented as of this encounter Care Teams Flight Kitchen Manager Relationship Specialty Start Date End Date Uday Sheehan [address] [place] [address] [place] [address] PCP - General Internal Medicine 03/27/24 documented as of this encounter
--- OUTSIDE RECORDS SUMMARY | 2024-08-29 16:38 | XMS_ITS | Encounter Summary ---
Author Organization [facility], Address [address] [place] [address] Phone Care Team Providers Care Leather Sponger Name Role Phone Uday Sheehan MD Primary Care Provider [phone] Encounter Details Date Type Department Care Team (Late st Contact Info) Description 04/11/2022 Documentation Only [facility], [address] [place] [address] Adi Jaeger MD [address] [place] [phone] Social History Tobacco Use Types Packs/Day Years [...] on filedocumented in this encounter Care Teams Leather Sponger Relationship Specialty Start Date End Date Uday Sheehan MD [address] [place] PCP - General 05/14/19 documented as of this encounter
--- OUTSIDE RECORDS SUMMARY | 2024-08-29 16:38 | XMS_ITS | Encounter Summary ---
Author Organization [facility] Address [address] [place] [address] Care Team Providers Care Microfabrication Engineer Manager Name Role Phone Uday Sheehan Primary Care Provider [phone] Encounter Details Date Type Department Care Team (Late st Contact Info) Description 03/12/2024 Lab Requisition [facility] Lab [address] [place] [address] Valarie Pierson MD [address] [place] [address] Acute and chronic respiratory failure with hypoxia [...] Date/Time Associated Diagnosis Comments RESPIRATORY PANEL PLUS, REFUND SPECIALIST SWAB ([facility]) Routine 03/12/2024 9:35 AM EDT Acute [...] negative HIV tests. * Respiratory Panel w/Sars-CoV-2, REFUND SPECIALIST Swab - Clear only (03/12/2024 9:35 AM EDT) Adenovirus DNA (PCR) Not Detected Not Detected QIAGEN QIASTAT-D X 03/12/2024 11:56 AM EDT [facility] Human Coronavirus 229E RNA (PCR) Not Detected Not Detected QIAGEN QIASTAT-D X 03/12/2024 11:56 AM EDT [facility] Human Coronavirus HKU1 RNA (PCR) Not Detected Not Detected QIAGEN QIASTAT-D X 03/12/2024 11:56 AM EDT [facility] Human Coronavirus NL63 RNA (PCR) Not Detected Not Detected QIAGEN QIASTAT-D X 03/12/2024 11:56 AM EDT [facility] Human Coronavirus OC43 RNA (PCR) Not Detected Not Detected QIAGEN QIASTAT-D X 03/12/2024 11:56 AM EDT [facility] Human Metapneumovirus RNA (PCR) Not Detected Not Detected QIAGEN QIASTAT-D X 03/12/2024 11:56 AM EDT [facility] Influenza A RNA (PCR) Not Detected Not Detected QIAGEN QIASTAT-D X 03/12/2024 11:56 AM EDT [facility] Influenza A H1 RNA (PCR) Not Detected Not Detected QIAGEN QIASTAT-D X 03/12/2024 11:56 AM EDT [facility] Influenza A H3 RNA (PCR) Not Detected Not Detected QIAGEN QIASTAT-D X 03/12/2024 11:56 AM EDT [facility] Influenza A H1N1 RNA (PCR) Not Detected Not Detected QIAGEN QIASTAT-D X 03/12/2024 11:56 AM EDT [facility] Influenza B RNA (PCR) Not Detected Not Detected QIAGEN QIASTAT-D X 03/12/2024 11:56 AM EDT [facility] Parainfluenza 1 RNA (PCR) Not Detected Not Detected QIAGEN QIASTAT-D X 03/12/2024 11:56 AM EDT [facility] Parainfluenza 2 RNA (PCR) Not Detected Not Detected QIAGEN QIASTAT-D X 03/12/2024 11:56 AM EDT [facility] Parainfluenza 3 RNA (PCR) Not Detected Not Detected QIAGEN QIASTAT-D X 03/12/2024 11:56 AM EDT [facility] Parainfluenza 4 RNA (PCR) Not Detected Not Detected QIAGEN QIASTAT-D X 03/12/2024 11:56 AM EDT [facility] Human Rhinovirus/Enterov irus RNA (PCR) Not Detected Not Detected QIAGEN QIASTAT-D X 03/12/2024 11:56 AM EDT [facility] RSV RNA (PCR) Not Detected Not Detected QIAGEN QIASTAT-D X 03/12/2024 11:56 AM EDT [facility] SARS CoV-2 RNA (PCR) Not Detected Not Detected QIAGEN QIASTAT-D X 03/12/2024 11:56 AM EDT [facility] Bordetella pertussis DNA (PCR) Not Detected Not Detected QIAGEN QIASTAT-D X 03/12/2024 11:56 AM EDT [facility] Chlamydophila pneumoniae DNA (PCR) Not Detected Not Detected QIAGEN QIASTAT-D X 03/12/2024 11:56 AM EDT [facility] Mycoplasma pneumoniae DNA (PCR) Not Detected Not Detected QIAGEN QIASTAT-D X 03/12/2024 11:56 AM EDT [facility] Nasopharyngeal Swab Specimen from nasopharyngeal structure / Unknown 03/12/2024 9:35 AM EDT 03/12/2024 9:58 AM EDT Narrative [facility] - 03/12/2024 11:56 AM EDT [...] FLUIDS AND STOOLS ORD ERABLES Final Result [facility] [address] [facility] [address] [place] [address], * Methicillin Resistant Staphylococcus aureus (MRSA) Culture Screen (03/12/2024 9:35 AM EDT) Pathologist [facility] MRSA Culture No methicillin resistant Staphylococcus aureus (MRSA) isolated. [place] [facility]UAL 03/14/2024 7:25 AM EDT [facility] Swab Nasal structure / Unknown 03/12/2024 9:35 AM EDT 03/12/2024 9:58 AM EDT Valarie Pierson MD LAB MICROBIOLOGY - GENERAL ORD ERABLES Final Result [facility] [address] [place] [address], * (ABNORMAL) CBC Auto Differential (03/12/2024 9:35 AM EDT) WBC 7.1 4.8 - 10.8 10*3/uL 03/12/2024 10:00 AM EDT [facility] RBC 3.25(L) 4.70 - 6.10 10*6/uL 03/12/2024 10:00 AM EDT [facility] Hemoglobin 9.2(L) 13.7 - 16.5 g/dL 03/12/2024 10:00 AM EDT [facility] Hematocrit 28.1(L) 40.5 - 48.5 % 03/12/2024 10:00 AM EDT [facility] MCV 86.5 80.0 - 94.0 fL 03/12/2024 10:00 AM EDT [facility] MCH 28.3 26.0 - 34.0 pg 03/12/2024 10:00 AM EDT [facility] MCHC 32.7 31.0 - 36.0 g/dL 03/12/2024 10:00 AM EDT [facility] RDW 15.0 12.0 - 15.0 % 03/12/2024 10:00 AM EDT [facility] RDW Standard Deviation 47.8(H) 35.1 - 43.9 fL 03/12/2024 10:00 AM EDT [facility] Platelets 124(L) 140 - 440 10*3/uL 03/12/2024 10:00 AM EDT [facility] MPV 10.6 9.4 - 12.4 fL 03/12/2024 10:00 AM EDT [facility] Neutrophil % 56.8 50.0 - 75.0 % 03/12/2024 10:00 AM EDT [facility] Immature Grans % 0.3 0.0 - 0.9 % 03/12/2024 10:00 AM EDT [facility] Lymphocyte % 27.0 20.0 - 44.0 % 03/12/2024 10:00 AM EDT [facility] Monocyte % 11.5 0.0 - 14.0 % 03/12/2024 10:00 AM EDT [facility] Eosinophil % 3.8 0.0 - 5.0 % 03/12/2024 10:00 AM EDT [facility] Basophil % 0.6 0.0 - 2.0 % 03/12/2024 10:00 AM EDT [facility] Neutrophil # 4.03 1.80 - 7.70 10*3/uL 03/12/2024 10:00 AM EDT [facility] Immature Grans # <0.03 0.00 - 0.03 10*3/uL 03/12/2024 10:00 AM EDT [facility] Lymphocyte # 1.90 1.00 - 4.75 10*3/uL 03/12/2024 10:00 AM EDT [facility] Monocyte # 0.80 0.00 - 6.00 10*3/uL 03/12/2024 10:00 AM EDT [facility] Eosinophil # 0.30 0.00 - 0.80 10*3/uL 03/12/2024 10:00 AM EDT [facility] Basophil # <0.03 0.00 - 0.20 10*3/uL 03/12/2024 10:00 AM EDT [facility] nRBC % 0.0 0 - 0 /100 WBCs 03/12/2024 10:00 AM EDT [facility] nRBC # <0.01 0.00 - 0.13 10*3/uL 03/12/2024 10:00 AM EDT [facility] Blood Structure of peripheral vein / Unknown 03/12/2024 9:35 AM EDT 03/12/2024 9:35 AM EDT us Valarie Pierson MD LAB BLOOD ORDERABLES Final Res ult Performing Organization Address [facility]/ZIP Co de Phone Number [facility] [address] [address], [place] [phone] * (ABNORMAL) TSH (03/12/2024 9:35 AM EDT) TSH 11.100(H) 0.270 - 4.200 uIU/mL 03/12/2024 10:37 AM EDT [facility] Blood Structure of peripheral vein / Unknown 03/12/2024 9:35 AM EDT 03/12/2024 9:35 AM EDT Valarie Pierson MD LAB BLOOD ORDERABLES Final Res ult Performing Organization Address City/[facility]/ZIP Co de Phone Number [facility] [address] [place] [address], [place] [phone] * (ABNORMAL) Comprehensive Metabolic Panel (03/12/2024 9:35 AM EDT) NA 137 136 - 145 mmol/L 03/12/2024 10:37 AM EDT [facility] K 3.9 3.5 - 5.1 mmol/L 03/12/2024 10:37 AM EDT [facility] Cl 101 98 - 109 mmol/L 03/12/2024 10:37 AM EDT [facility] CO2 27 23 - 32 mmol/L 03/12/2024 10:37 AM EDT [facility] Anion Gap 13 >=0 03/12/2024 10:37 AM EDT [facility] Glucose 99 60 - 99 mg/dL 03/12/2024 10:37 AM [facility] Creatinine 1.08 0.50 - 1.12 mg/dL 03/12/2024 10:37 AM [facility] Calcium 9.4 8.4 - 10.4 mg/dL 03/12/2024 10:37 AM [facility] Total Protein 6.6 6.6 - 8.7 g/dL 03/12/2024 10:37 AM [facility] Albumin 3.2(L) 3.5 - 5.0 g/dL 03/12/2024 10:37 AM [facility] Bilirubin, Total 0.4 0.2 - 1.2 mg/dL 03/12/2024 10:37 AM [facility] Alkaline Phosphatase 109 40 - 129 U/L 03/12/2024 10:37 AM [facility] AST 62(H) 0 - 40 U/L 03/12/2024 10:37 AM [facility] ALT 65(H) <=41 U/L 03/12/2024 10:37 AM [facility] BUN 14 8 - 23 mg/dL 03/12/2024 10:37 AM [facility] eGFR 68 >=60 mL/min/1. 73m2 03/12/2024 10:37 AM [facility] Comment:The estimated glomer ular filtration [...] 2.1 - 4.2 g/dL 03/12/2024 10:37 AM [facility] A/G Ratio 0.9(L) 1.5 - 3.0 03/12/2024 10:37 AM EDT [facility] Blood Structure of peripheral vein / Unknown 03/12/2024 9:35 AM EDT 03/12/2024 9:35 AM EDT Valarie Pierson MD LAB BLOOD ORDERABLES Final Res ult [facility] [address] [place] [address], documented in this encounter Visit Diagnoses Diagnosis [...] documented as of this encounter Care Teams Microfabrication Engineer Manager Relationship Specialty Start Date End Date Uday Sheehan [address] [place] [address] [place] [address] PCP - General Internal Medicine 03/27/24 documented as of this encounter
--- OUTSIDE RECORDS SUMMARY | 2024-08-29 16:38 | XMS_ITS | Encounter Summary ---
Author Organization [facility] Address [address] [place] [address] Care Team Providers Care Commercial Marketing Specialist Name Role Phone Uday Sheehan MD Primary Care Provider [phone] Encounter Details Date Type Department Care Team (Late st Contact Info) Description 08/24/2024 Lab Requisition [facility] - Main Lab [address] [facility] [place] [address] Tabby Bledsoe MD [address] [facility] [address] [place], [place] [id number] Bacteremia; Heart failure, unspecified (CMS/HCC); Pressure ulcer of unspecified site, unspecified stage Social History Tobacco Use Types Packs/Day Years [...] Associated Diagnosis Comments COMPLETE BLOOD COUNT Routine 08/26/2024 7:46 AM EST Bacteremia Heart failure, unspecified (CMS/HCC) Pressure ulcer of unspecified site, unspecified stage PREALBUMIN Routine 08/26/2024 7:46 AM EST Bacteremia Heart failure, unspecified (CMS/HCC) Pressure ulcer of unspecified site, unspecified stage COMPREHENSIVE METABOLIC PANEL Routine 08/26/2024 7:46 AM EST Bacteremia Heart failure, unspecified (CMS/HCC) Pressure ulcer of unspecified site, unspecified stage documented in this encounter Results * (ABNORMAL) Prealbumin (08/26/2024 7:46 AM EST) Prealbumin 9(L) 18 - 45 mg/dL LAB CHEMISTRY METHOD 08/26/2024 11:01 AM [facility] Blood Venous blood specimen / Unknown Venipuncture / Unknown 08/26/2024 7:46 AM EST 08/26/2024 10:11 AM EST us Tabby Bledsoe MD LAB BLOOD ORDERABLES Fin al Result [facility] [address] [place] [address], * (ABNORMAL) Comprehensive metabolic panel (08/26/2024 7:46 AM EST) Pathologist [facility] [place] Sodium 139 133 - 145 mmol/L LAB CHEMISTRY METHOD 08/26/2024 11:03 AM [facility] Potassium 4.3 3.5 - 5.5 mmol/L LAB CHEMISTRY METHOD 08/26/2024 11:03 AM [facility] Chloride 105 96 - 110 mmol/L LAB CHEMISTRY METHOD 08/26/2024 11:03 AM [facility] CO2 29 21 - 32 mmol/L LAB CHEMISTRY METHOD 08/26/2024 11:03 AM [facility] Anion Gap 5 3 - 11 LAB CHEMISTRY METHOD 08/26/2024 11:03 AM [facility] Glucose 81 70 - 100 mg/dL LAB CHEMISTRY METHOD 08/26/2024 11:03 AM [facility] BUN 24 5 - 25 mg/dL LAB CHEMISTRY METHOD 08/26/2024 11:03 AM [facility] Creatinine 1.43(H) 0.70 - 1.30 mg/dL LAB CHEMISTRY METHOD 08/26/2024 11:03 AM [facility] eGFR 48(L) >=60 mL/min/1. 73m2 LAB CHEMISTRY METHOD 08/26/2024 11:03 AM [facility] Comment:Calculation based on the??Chronic Kidney Disease Epidemiology Collaboration (CKD-EPI) equation refit??without adjustment for race. BUN/Creatinine Ratio 16.8 LAB CHEMISTRY METHOD 08/26/2024 11:03 AM [facility] Calcium 8.1(L) 8.5 - 10.5 mg/dL LAB CHEMISTRY METHOD 08/26/2024 11:03 AM [facility] AST (SGOT) 23 10 - 42 unit/L LAB CHEMISTRY METHOD 08/26/2024 11:03 AM [facility] ALT (SGPT) 18 10 - 60 unit/L LAB CHEMISTRY METHOD 08/26/2024 11:03 AM [facility] Alkaline Phosphatase 88 42 - 121 unit/L LAB CHEMISTRY METHOD 08/26/2024 11:03 AM [facility] Total Protein 5.4(L) 6.0 - 8.0 g/dL LAB CHEMISTRY METHOD 08/26/2024 11:03 AM [facility] Albumin 1.3(L) 3.2 - 5.0 g/dL LAB CHEMISTRY METHOD 08/26/2024 11:03 AM [facility] Total Bilirubin 0.4 0.0 - 1.4 mg/dL LAB CHEMISTRY METHOD 08/26/2024 11:03 AM [facility] Blood Venous blood specimen / Unknown Venipuncture / Unknown 08/26/2024 7:46 AM EST 08/26/2024 10:11 AM EST us Tabby Bledsoe MD LAB BLOOD ORDERABLES Fin al Result [facility] [address] [place] [address], * (ABNORMAL) Complete blood count (08/26/2024 7:46 AM EST) [facility] WBC 5.9 4.8 - 10.8 K/mcL LAB HEMETOLOGY METHOD 08/26/2024 10:37 AM [facility] RBC 2.60(L) 4.50 - 5.50 M/mcL LAB HEMETOLOGY METHOD 08/26/2024 10:37 AM [facility] Hemoglobin 7.0(L) 13.5 - 17.5 g/dL LAB HEMETOLOGY METHOD 08/26/2024 10:37 AM [facility] Hematocrit 23.5(L) 42.0 - 54.0 % LAB HEMETOLOGY METHOD 08/26/2024 10:37 AM [facility] MCV 91.1 79.0 - 98.0 FL LAB HEMETOLOGY METHOD 08/26/2024 10:37 AM [facility] MCH 27.1 27.0 - 32.0 pcg LAB HEMETOLOGY METHOD 08/26/2024 10:37 AM [facility] MCHC 29.8(L) 32.0 - 37.0 g/dL LAB HEMETOLOGY METHOD 08/26/2024 10:37 AM [facility] RDW 18.1(H) 11.0 - 15.0 % LAB HEMETOLOGY METHOD 08/26/2024 10:37 AM [facility] Platelets 309 130 - 400 K/mcL LAB HEMETOLOGY METHOD 08/26/2024 10:37 AM [facility] MPV 9.2 7.0 - 11.0 FL LAB HEMETOLOGY METHOD 08/26/2024 10:37 AM [facility] NRBC 0.0 <1.0 % LAB HEMETOLOGY METHOD 08/26/2024 10:37 AM [facility] NRBC Absolute 0.00 <0.10 K/mcL LAB HEMETOLOGY METHOD 08/26/2024 10:37 AM EST [facility] Blood Venous blood specimen / Unknown Venipuncture / Unknown 08/26/2024 7:46 AM EST 08/26/2024 10:11 AM EST us Tabby Bledsoe MD LAB BLOOD ORDERABLES Fin al Result [facility] [address] [place] [address], documented in this encounter Visit Diagnoses Diagnosis Bacteremia Heart failure, unspecified (CMS/HCC) Heart failure, unspecified Pressure ulcer of unspecified site, unspecified stage documented in this encounter Additional Health Concerns 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
--- OUTSIDE RECORDS SUMMARY | 2024-08-29 16:38 | XMS_ITS | Encounter Summary ---
Author Organization [facility], Address [address] [place] [address] Phone Care Team Providers Care Dynamite Cartridge Crimper Name Role Phone Uday Sheehan MD Primary Care Provider [phone] Encounter Details Date Type Department Care Team (Late st Contact Info) Description 10/11/2021 Documentation Only [facility], [address] [place] [phone] Adi Jaeger MD [address] [place] [address] [place] [phone] Social History Tobacco Use Types Packs/Day Years [...] on filedocumented in this encounter Care Teams Dynamite Cartridge Crimper Relationship Specialty Start Date End Date Uday Sheehan MD [address] [place] PCP - General 05/14/19 documented as of this encounter
--- OUTSIDE RECORDS SUMMARY | 2024-08-29 16:38 | XMS_ITS | Continuity of Care Document ---
Author Organization [facility] [address] [facility] [address] [place] [address] Phone [phone] Social History Type Date Description Comments Sex Unknown Medical Devices Description No Information Available Encounters Description No Information Available Assessments Description No Information Available Plan of Treatment No Information Available Functional Status Description No Information Available Mental Status Description No Information Available Referrals Description No Information Available
--- OUTSIDE RECORDS SUMMARY | 2024-08-29 16:38 | XMS_ITS | Encounter Summary ---
Author Organization [facility] Address [address] [place] [address] Care Team Providers Care Dealer Sales Manager Name Role Phone Uday Sheehan MD Primary Care Provider [phone] Encounter Details Date Type Department Care Team (Late st Contact Info) Description 08/18/[address] [facility] - Main Lab [address] [place] [address] Tabby Bledsoe MD [address] [address] Bacteremia Social History Tobacco Use Types Packs/Day [...] LAB CHEMISTRY METHOD 08/19/2024 3:13 PM EST [facility] Potassium 4.0 3.5 - 5.5 mmol/L LAB CHEMISTRY METHOD 08/19/2024 3:13 PM [facility] Chloride 111(H) 96 - 110 mmol/L LAB CHEMISTRY METHOD 08/19/2024 3:13 PM [facility] CO2 25 21 - 32 mmol/L LAB CHEMISTRY METHOD 08/19/2024 3:13 PM [facility] Anion Gap 9 3 - 11 LAB CHEMISTRY METHOD 08/19/2024 3:13 PM [facility] Glucose 90 70 - 100 mg/dL LAB CHEMISTRY METHOD 08/19/2024 3:13 PM [facility] BUN 23 5 - 25 mg/dL LAB CHEMISTRY METHOD 08/19/2024 3:13 PM [facility] Creatinine 1.46(H) 0.70 - 1.30 mg/dL LAB CHEMISTRY METHOD 08/19/2024 3:13 PM [facility] eGFR 47(L) >=60 mL/min/1. 73m2 LAB CHEMISTRY METHOD 08/19/2024 3:13 PM [facility] Comment:Calculation based on the??Chronic Kidney Disease Epidemiology Collaboration (CKD-EPI) equation refit??without adjustment for race. BUN/Creatinine Ratio 15.8 LAB CHEMISTRY METHOD 08/19/2024 3:13 PM [facility] Calcium 8.3(L) 8.5 - 10.5 mg/dL LAB CHEMISTRY METHOD 08/19/2024 3:13 PM [facility] AST (SGOT) 19 10 - 42 unit/L LAB CHEMISTRY METHOD 08/19/2024 3:13 PM [facility] ALT (SGPT) 12 10 - 60 unit/L LAB CHEMISTRY METHOD 08/19/2024 3:13 PM [facility] Alkaline Phosphatase 88 42 - 121 unit/L LAB CHEMISTRY METHOD 08/19/2024 3:13 PM [facility] Total Protein 5.5(L) 6.0 - 8.0 g/dL LAB CHEMISTRY METHOD 08/19/2024 3:13 PM EST [facility] Albumin 1.5(L) 3.2 - 5.0 g/dL LAB CHEMISTRY METHOD 08/19/2024 3:13 PM [facility] Total Bilirubin 0.3 0.0 - 1.4 mg/dL LAB CHEMISTRY METHOD 08/19/2024 3:13 PM [facility] Blood Venous blood specimen / Unknown Venipuncture / Unknown 08/19/2024 8:46 AM EST 08/19/2024 12:22 PM EST us Tabby Bledsoe MD LAB BLOOD ORDERABLES Fin al Result [facility] [address] [place] [address], [place] [phone] * (ABNORMAL) Complete blood count (08/19/2024 8:46 AM EST) WBC 6.3 4.8 - 10.8 K/mcL LAB HEMETOLOGY METHOD 08/19/2024 1:38 PM [facility] RBC 2.80(L) 4.50 - 5.50 M/mcL LAB HEMETOLOGY METHOD 08/19/2024 1:38 PM [facility] Hemoglobin 7.5(L) 13.5 - 17.5 g/dL LAB HEMETOLOGY METHOD 08/19/2024 1:38 PM [facility] Hematocrit 25.6(L) 42.0 - 54.0 % LAB HEMETOLOGY METHOD 08/19/2024 1:38 PM [facility] MCV 92.4 79.0 - 98.0 FL LAB HEMETOLOGY METHOD 08/19/2024 1:38 PM [facility] MCH 27.1 27.0 - 32.0 pcg LAB HEMETOLOGY METHOD 08/19/2024 1:38 PM [facility] MCHC 29.3(L) 32.0 - 37.0 g/dL LAB HEMETOLOGY METHOD 08/19/2024 1:38 PM EST [facility] RDW 19.2(H) 11.0 - 15.0 % LAB HEMETOLOGY METHOD 08/19/2024 1:38 PM [facility] Platelets 289 130 - 400 K/mcL LAB HEMETOLOGY METHOD 08/19/2024 1:38 PM [facility] MPV 9.1 7.0 - 11.0 FL LAB HEMETOLOGY METHOD 08/19/2024 1:38 PM [facility] NRBC 0.0 <1.0 % LAB HEMETOLOGY METHOD 08/19/2024 1:38 PM [facility] NRBC Absolute 0.00 <0.10 K/mcL LAB HEMETOLOGY METHOD 08/19/2024 1:38 PM [facility] Blood Venous blood specimen / Unknown Venipuncture / Unknown 08/19/2024 8:46 AM EST 08/19/2024 12:22 PM EST Tabby Bledsoe MD LAB BLOOD ORDERABLES Fin al Result [facility] [address] [place] [address], documented in this encounter Visit Diagnoses Diagnosis Bacteremia documented in this encounter Additional Health Concerns Infection Onset Date Last Indicated Resolved Time ESBL 06/22/2024 06/22/2024 documented as of this encounter Care Teams Dealer Sales Manager Relationship Specialty Start Date End Date Uday Sheehan MD [address] [place] [address] Dr Donna [place] PCP - General Supercharger Mechanic 12/19/16 documented as of this encounter
[2024-08-29 16:41] LABS: Influenza A PCR NEGATIVE (Negative); Influenza B PCR NEGATIVE (Negative); Resp Syncy Virus RNA Qual PCR NEGATIVE (Negative); SARS COV2 PCR INHOUSE NEGATIVE (Negative)
[2024-08-29] MEDS: vancomycin/NS 2,000 MG/500 ML PLAST..BAG 250 MG IV (16:56)
[2024-08-29] MEDS: Piperacillin Sodium/Tazobactam 3.375 GM in 0.9 % Sodium Chloride 50 ML IV (16:57)
[2024-08-29 17:04] LABS: B Type Natriuretic Peptide 64 pg/mL (<100)
--- NOTE | 2024-08-29 17:04 | PC.NURSE ---
Providers aware of ongoing low BPs
[2024-08-29 17:05] LABS: Bacteria Urine 4+ (None Seen); Other Crystals Urine Present; RBC Urine 0-2 /HPF (0-2); Squamous Epithelial Cell Urine 0-2 /HPF (0-2); UACC Culture Trigger YES; WBC Urine 21-50 /HPF (0-5)
[2024-08-29] MEDS: Acetaminophen 1,000 MG/100 ML PIGGYBACK 400 MG IV (17:11)
[2024-08-29] MEDS: oxyCODONE HCl Immed Release 5 MG TABLET PO (17:50)
--- NOTE | 2024-08-29 17:52 | PC.NURSE ---
Pt BIBA from [facility] for Low Hemoglobin and low BP. Pt is alert and oriented, breathing even and unlabored, skin pale. 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 Jamison cath in place, chronic. Pt is on blood thinners. Denies any complaints other than his baseline pain in his feet and bottom. Medicated per SEP, orders followed. NSR on bedside monitor.
--- NOTE | 2024-08-29 19:29 | PM.IMHP ---
History of Present Illness Date of Service: 08/29/24 Chief Complaint: low hemoglobin 84-year-old male with a past medical history of PAF, HFrEF, HTN, CKD III, GALLITO, and GERD, with prior hospitalizations for UTIs due to multidrug-resistant organisms. He was last admitted to our hospital from August 11 to for UTI treatment. The patient was sent from SNF today for evaluation of low blood count. In the emergency room, his hemoglobin was low but within his baseline. He was also noted to have hypotension (81/32), which improved with IV fluids. His current blood pressure is 103/52. Urinalysis showed negative nitrites, positive bacteria, and positive leukocyte esterase, but he has no urinary symptoms. CT abdomen and pelvis findings: Severe cellulitis in the decubitus region with a large soft tissue ulcer and a small focus of osteomyelitis of the sacrum. Bilateral pelviectasis and perinephric fat infiltration, concerning for possible pyelonephritis?correlate with urinalysis. Emergency department treatment: Vancomycin and Zosyn. Review of Systems Review of Systems: Gen: no fever Resp: no sob, no cough CV: no chest, no JACOBS, no leg edema GI: No n/v, no abd pain Neuro: No confusion Yes all other systems are reviewed and are negative [facility] Medical History Bilateral hydronephrosis Delirium Altered mental status Sepsis Atherosclerotic cardiovascular disease PAF (paroxysmal atrial fibrillation) NSTEMI (non-ST elevated myocardial infarction) Chronic renal disease, stage 3, moderately decreased glomerular filtration rate (GFR) between 30-59 mL/min/1.73 square meter Chest pain Heart failure Thyroid disease GERD (gastroesophageal reflux disease) On anticoagulant therapy COVID-19 vaccine series completed Symptomatic cholelithiasis HTN (hypertension) Hyperlipidemia Atrial fibrillation Sleep apnea Elevated PSA Facet arthropathy, cervical BPH loc w urin obs/LUTS Family History Unknown No problems noted. Surgical History S/P percutaneous endoscopic gastrostomy (PEG) tube placement Hx of tracheostomy S/P laparoscopic cholecystectomy Hx of cataract extraction History of total replacement of both hip joints Hx of cystoscopy H/O colonoscopy History of surgery Social History Household Members: Spouse Housing: House Are you a primary career development coordinator/teacher to a significant other at home: No Do you presently have visiting nurse or other home services: Yes (HEARING SPECIALIST 8hrs a day) Alcohol intake: never Comment: patient is chair, bedbound Patient Tobacco Use Status: Never used Tobacco Advance Directives Date on File: 03/07/24 service: No Current occupational status: retired Meds Allergies Allergy/AdvReac Type Severity Reaction Status Date / Time ibuprofen [IBUPROFEN] Allergy Intermediate HIVES Verified 08/29/24 15:22 hydromorphone [From DILAUDID] AdvReac Intermediate ILEUS Verified 08/10/24 23:34 procaine [From Novocain] AdvReac Intermediate has no Verified 08/10/24 23:34 numbing effect-states monocain works narcotic pain meds AdvReac Intermediate does not Uncoded 08/10/24 23:34 relieve pain per patient Home Medications ?Medication ?Instructions ?Recorded ?Confirmed ?Last Taken ?Type acetaminophen 325 mg tablet 975 mg PO Q6H PRN Pain/Fever 06/26/24 08/30/24 Unknown History albuterol sulfate 2.5 mg/3 mL 2.5 mg inhalation Q4H PRN 06/26/24 08/30/24 Unknown History (0.083 %) solution for nebulization Shortness Of Breath Or Wheezing amiodarone 200 mg tablet 200 mg PO DAILY 06/26/24 08/30/24 Unknown History amlodipine 10 mg tablet 10 mg PO DAILY 06/26/24 08/30/24 Unknown History ascorbic acid (vitamin C) 500 mg 500 mg PO BID 06/26/24 08/30/24 Unknown History tablet bisacodyl 10 mg rectal suppository 10 mg NM DAILY PRN Constipation 06/26/24 08/30/24 Unknown History docusate sodium 100 mg tablet 100 mg PO BID 06/26/24 08/30/24 Unknown History famotidine 20 mg tablet 20 mg PO BEDTIME 06/26/24 08/30/24 Unknown History ferrous sulfate 325 mg (65 mg 325 mg PO BID 06/26/24 08/30/24 Unknown History iron) tablet gabapentin 100 mg capsule 100 mg PO BID 06/26/24 08/30/24 Unknown History levothyroxine 100 mcg tablet 100 mcg PO DAILY@0600 06/26/24 08/30/24 Unknown History magnesium hydroxide 400 mg/5 mL 30 ml PO Q72H PRN Constipation 06/26/24 08/30/24 Unknown History oral suspension (Milk of Magnesia) nystatin 100,000 unit/gram topical 1 appl topical BID 06/26/24 08/30/24 Unknown History powder polyvinyl alcohol 1.4 % eye drops 1 drp ophthalmic (eye) Q6H PRN Dry 06/26/24 08/30/24 Unknown History Eyes sennosides 8.6 mg tablet (senna) 17.2 mg PO BEDTIME 06/26/24 08/30/24 Unknown History thiamine HCl (vitamin B1) 100 mg 100 mg PO DAILY 06/26/24 08/30/24 Unknown History tablet (Vitamin B-1) Lactobacillus acidoph-L.bulgaricus 1 tab PO BID 08/11/24 08/30/24 Unknown History 1 million cell tablet apixaban 2.5 mg tablet (Eliquis) 2.5 mg PO BID 08/11/24 08/30/24 Unknown History collagenase clostridium histo. 250 1 appl topical DAILY 08/11/24 08/30/24 Unknown History unit/gram topical ointment (Santyl) menthol 5 % topical patch (Cold 1 patch topical DAILY 08/11/24 08/30/24 Unknown History and Hot (menthol)) multivitamin with minerals 1 tab PO DAILY 08/11/24 08/30/24 Unknown History ondansetron HCl 4 mg tablet 4 mg PO Q8H PRN Nausea And Vomiting 08/11/24 08/30/24 Unknown History sodium phosphates 19 gram-7 118 ml NM DAILY PRN Constipation 08/11/24 08/30/24 Unknown History gram/118 mL enema (Fleet Enema) zinc acetate 50 mg (zinc) capsule 50 mg PO DAILY 08/11/24 08/30/24 Unknown History melatonin 5 mg tablet 10 mg PO BEDTIME 08/20/24 08/30/24 Unknown History sodium hypochlorite 0.25 % solution 1 appl topical DAILY 08/30/24 08/30/24 Unknown History tramadol 50 mg tablet 50 mg PO Q8H PRN Pain 08/30/24 08/30/24 Unknown History Physical Exam Vital Signs and Narrative: Vital Signs: Last Vital Signs Temp 97 F 08/29/24 18:35 Pulse 92 08/29/24 18:35 Resp 16 08/29/24 18:35 BP 103/52 L 08/29/24 18:35 Pulse Ox 97 08/29/24 18:35 O2 Del Method Room Air 08/29/24 18:35 BMI result Body Mass Index 28.1 Const: Other: Constitutional: Alert, in no distress, Mental Status: Oriented to person, place and time. Eyes: Pupils are equal, round and reactive to light. Ear, Nose and Throat: Oropharynx clear, mucous membranes moist. Ears and nose without eformities. Trachea midline. Respiratory: Clear to auscultation. No wheezing, rales or rhonchi. Cardiovascular: S1 S2 regular. No murmurs, rubs or gallops. Gastrointestinal: Abdomen soft, non-tender, non-distended. Normal bowel sounds.? Neurologic: Cranial nerves II-XII grossly intact. No focal neurological deficits. Moves all extremities spontaneously.? Skin: non stageable pressure ulcers of both, heels, large decub ulcer stage 4 Musculoskeletal: No cyanosis or clubbing. Psychiatric: Normal mood and affect? Results Labs 08/29/24 15:39 08/31/24 05:38 Labs: Laboratory Results - last 24 hr 08/29/24 08/29/24 15:39 16:24 MCV 88.0 MCH 27.6 MCHC 31.3 RDW 17.8 H Plt Count 293 MPV 9.2 L Immature Gran % (Auto) 0.6 H Neut % (Auto) 61.2 Lymph % (Auto) 22.6 [place] % (Auto) 12.5 H Eos % (Auto) 2.7 Baso % (Auto) 0.4 Lymph # (Auto) 1.8 [place] # (Auto) 1.0 Eos # (Auto) 0.2 Baso # (Auto) 0.0 Abs Immat Gran (auto) 0.05 H Absolute Neuts (auto) 4.8 Absolute Nucleated RBC 0.000 Nucleated RBC % (auto) 0.0 PT 15.9 H INR 1.4 H APTT 39.7 H Anion Gap 13 Estim Creat Clear Calc 50.3 Estimated GFR 53 Random Glucose 104 Lactic Acid 1.1 Calcium 8.6 Magnesium 2.0 Total Bilirubin 0.3 Direct Bilirubin 0.2 AST 24 ALT 6 Alkaline Phosphatase 103 B-Natriuretic Peptide 64 Total Protein 6.8 Albumin 2.1 L Urine Color Dark Yellow Urine Appearance Turbid Urine pH >= 9.0 Ur Specific [place] 1.020 Urine Protein 300 (3+) H Urine Glucose (UA) Negative Urine Ketones Negative Urine Blood Small (1+) H Urine Nitrite Negative Ur Leukocyte Esterase Large (3+) H Urine RBC 0-2 Urine WBC 21-50 Ur Squamous Epith Cells 0-2 Other Crystals Present Urine Bacteria 4+ Hyaline Casts 3-5 Influenza Type A (PCR) NEGATIVE Influenza Type B (PCR) NEGATIVE RSV RNA Qual (PCR) NEGATIVE SARS-CoV-2 RNA (RT-PCR) NEGATIVE Blood Type O Positive Antibody Screen NEGATIVE Assessment and Plan (1) Urinary tract infection: Status: Acute Plan 84M PMH PAF, HFrEF, HTN, CKD III, GALLITO, GERD, recurent UTI, decubit ulcers, dmentia, from SNF with infected decub ulcers. Cellulitis and infected Sacral ulcer with acute osteomylitis Vanco + Meropenen cultures pending ID consult Wound consult consult Surgery consult for possible debridment frequent position change/protein supplements, offloading mattress, being followed by General surgery they recommend to Continue daily local wound care with wet to dry saline soaked fluffs, followed by dry fluffs, abd dressing and tape. Acute on chronic uti with indwelling desai, +UA could be colonization Abx as above CKD 3 Stable Cr, monitor BMP Anemia of chronic disease, stable H/H, monitor Paroxysmal atrial fibrillation continue amio and eliquis and monitor H/H and if trending down stop hypothyroid synthroid Sacral Pressure Ulcers-s/p extensive debridement by General surgery/ DVT prophylaxis - resume Eliquis need for inpt: IV Abx for infected sacral ulcer with acute osteomylitis med rec not yet completed Full code: Patient wants once attempt at CPR Quality Stroke Does the patient have a stroke diagnosis?: No VTE Prior VTE?: No VTE Risk Level:: Medical - moderate - high VTE Device Contraindication: N/A - Device Ordered VTE Drug Contraindication: N/A - Med Ordered
--- NOTE | 2024-08-29 20:18 | PC.NURSE ---
pt turned with hospitalist at bedside picture of wound taken by hospitalist, wound is unstagable. stool dark green noted wound cleaned, brief removed, wound cleaned and dressed. pt positioned off of wound onto pillows.
--- NOTE | 2024-08-29 21:00 | PHA.PROG ---
Admission Date/Time: August 29, 2024 20:25 Indication: skin + skin structure Weight in k.894 kg Adjusted body weight in Kg: [place] body weight in Kg: Obesity Dosing Indication % IBW: BMI 28.1 Serum Creatinine - Last 168 Hours 08/29/24 15:39 Creatinine 1.30 Estimated CrCl and GFR - Last 168 Hours 08/29/24 15:39 Estim Creat Clear Calc 50.3 Estimated GFR 53 Vancomycin Loading Dose: 2000mg X1 Current Vancomycin Dosing Regimen: 1250mg Q24H Vancomycin Monitoring using AUC goal of 400 - 600 range with trough as surrogate marker: 504 Date and Time for next Vancomycin Level to be drawn: 08/31 @1500 Pharmacist Comments on Vancomycin Plan: Patient's renal function to be followed closely and dose readjusted based on that and trough. Starting off targeting trough of 15.9 and BMI is 28.1. Vancomycin dosing will take advantage of [employer] as a clinical decision support tool that uses Bayesian modeling to calculate individual patient's pharmacokinetic parameters and forecast the patient's drug concentration time course with the target goal AUC 24 range of 400 - 600 mg/L/hr.
[2024-08-29] MEDS: Meropenem 1 GM VIAL IVPUSH (21:21)
[2024-08-29] MEDS: Apixaban 2.5 MG TABLET PO (21:46)
[2024-08-30] VITALS (9 sets, daily range): BP systolic 101–112; BP diastolic 41–78; PULSE 79–96; RESP 16–20; TEMP 36.1–37.2; O2SAT 95–98; BMI 28.1
--- NOTE | 2024-08-30 01:00 | PC.NURSE ---
20 right ac placed by davidson rn.
--- NOTE | 2024-08-30 02:53 | PC.NURSE ---
hospitalist colleen malcolm, pain to buttocks wound. 04/18. pt has been repostitioned with pillows on both sides to elevate the wound off the bed, along with his heels elevated of the bed. right inner knee skin breakdown prior to pt arrival. pillow between knees and under legs.
--- NOTE | 2024-08-30 03:41 | PC.NURSE ---
report rec guillermo Mckeon rn
[2024-08-30] MEDS: Morphine Sulfate 2 MG/ML CARTRIDGE 1 MG IVPUSH ×3 (03:45→21:58)
[2024-08-30] MEDS: Meropenem 1 GM VIAL IVPUSH ×3 (05:13→21:53)
[2024-08-30 05:57] LABS: Alanine Aminotransferase < 6 U/L (0-40); Alkaline Phosphatase 93 U/L (39-117); Anion Gap 15 (12-20); Aspartate Amino Transferase 22 U/L (5-37); Bilirubin Total 0.4 mg/dL (0.0-1.0); Blood Urea Nitrogen 24 mg/dL (9-16); Calcium 8.4 mg/dL (8.4-10.2); Carbon Dioxide 20 mmol/L (22-29); Chloride 107 mmol/L (96-108); Creatinine Clr Calc Pharmacy 57.8; Estimated Glomerular Filt Rate > 60; Glucose Random 84 mg/dL (60-115); Potassium 3.9 mmol/L (3.3-5.1); Sodium 138 mmol/L (135-145); Total Protein 6.3 g/dL (6.5-8.0)
--- NOTE | 2024-08-30 06:23 | PC.NURSE ---
pt states the morphine helped his out a lot. pt was repositioned dressing checked and is dry and intact. chaya pillows placed under pt buttocks to protect further breakdown. heals elevated with pillows and between the knees.
[2024-08-30] MEDS: Apixaban 2.5 MG TABLET PO ×2 (08:53→21:54)
--- NOTE | 2024-08-30 09:20 | PC.NURSE ---
assumed care of patient at 0700, patient is awake and alert, resp even and unlabored, linens dry and intact. patient medicated per SEP, did not want to eat breakfast today. patient awakens to verbal stimuli. VSS at this time.
--- NOTE | 2024-08-30 09:35 | PHA.MEDREC ---
Pharmacy Consult ? Medication Reconciliation Pharmacy has completed the medication reconciliation. Utilized med list from [facility] to confirm home meds.
--- NOTE | 2024-08-30 12:17 | MHC.CM.PN ---
Attempted to meet with patient in regards to discharge planning. Patient currently sleeping. Spoke with patient's daughter/HCP, Linda, via telephone at [phone]. Linda lives in [facility]. [facility]. Linda is concerned that patient's wound has gotten worse because the facility is not able to properly care for the wound. Linda reports she has spoke to the DON at [facility] about this. Patient has been refusing to be repositioned. iLnda agreeable to patient returning to [facility]. Return referral made in [facility]. Anticipate patient will return via S. IMM explained and sent to Linda via email at [email or web address]. Copy of HCP verified to be on file. T/W reached out to Dr Cortez to request a call to Linda to update her on her father's plan of care. Continue to monitor for d/c needs.
--- NOTE | 2024-08-30 12:21 | PC.NURSE ---
Pt. suddenly shouting HELP. 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 Pt. is not oriented at this time, also stating that living has been crushed and killed. MD Dana notified of acute mental status changes.
--- NOTE | 2024-08-30 14:02 | PM.CNGS ---
History of Present Illness Consult details Consult date: 08/30/24 Requesting physician: Dami Jimenez Narrative: 84-year-old male patient known to service with a sacral decubitus and other skin ulcers presenting to the emergency department via EMS for low hemoglobin. He was a resident at a rehab facility with a past medical history of atrial fibrillation on Eliquis, HFrEF, hypertension, chronic kidney disease 3, GALLITO, GERD, and sacral decubitus ulcers. He underwent debridement of this sacral decubitus ulcer on his previous admission on 08/13/2024. Ulcer was found to extend down to muscle and bone with probable osteomyelitis. Wounds were treated with wet-to-dry dressings, pressure reduction and nutritional support. The patient does complain of pain associated with the decubitus ulcer. Surgical consultation was requested for further management of this decubitus ulcer. Review of Systems Review of Systems: Yes Unobtainable due to mental condition PMFSH Past Medical History Medical History Bilateral hydronephrosis Delirium Altered mental status Sepsis Atherosclerotic cardiovascular disease PAF (paroxysmal atrial fibrillation) NSTEMI (non-ST elevated myocardial infarction) Chronic renal disease, stage 3, moderately decreased glomerular filtration rate (GFR) between 30-59 mL/min/1.73 square meter Chest pain Heart failure Thyroid disease GERD (gastroesophageal reflux disease) On anticoagulant therapy COVID-19 vaccine series completed Symptomatic cholelithiasis HTN (hypertension) Hyperlipidemia Atrial fibrillation Sleep apnea Elevated PSA Facet arthropathy, cervical BPH loc w urin obs/LUTS Family History Family History Unknown No problems noted. Surgical History Surgical History S/P percutaneous endoscopic gastrostomy (PEG) tube placement Hx of tracheostomy S/P laparoscopic cholecystectomy Hx of cataract extraction History of total replacement of both hip joints Hx of cystoscopy H/O colonoscopy History of surgery Social History Social History Household Members: Unknown / Unable to assess Housing: Unknown / Unable to assess Are you a primary long term care social worker to a significant other at home: No Do you presently have visiting nurse or other home services: No Alcohol intake: never Comment: patient is chair, bedbound Patient Tobacco Use Status: Never used Tobacco Smoked in Last 30 Days: No Use of substances other than those prescribed or required for medical reasons: No Advance Directives: Yes Advance Directives on File: Yes Advance Directives Date on File: 03/07/24 service: No Current occupational status: retired Meds Allergies Allergy/AdvReac Type Severity Reaction Status Date / Time ibuprofen [IBUPROFEN] Allergy Intermediate HIVES Verified 08/29/24 15:22 hydromorphone [From DILAUDID] AdvReac Intermediate ILEUS Verified 08/10/24 23:34 procaine [From Novocain] AdvReac Intermediate has no Verified 08/10/24 23:34 numbing effect-states monocain works narcotic pain meds AdvReac Intermediate does not Uncoded 08/10/24 23:34 relieve pain per patient Active Medications: Current Medications Acetaminophen (Acetaminophen 325 Mg Tablet) 650 mg PO Q6H PRN PRN Reason: Pain, Mild 1-3,fever,headache Apixaban (Apixaban 2.5 Mg Tablet) 2.5 mg PO BID [facility] Last Admin: 08/30/24 08:53 Dose: 2.5 mg Calcium Carbonate (Calcium Carbonate 750 Mg Tab.Chew) 750 mg PO Q4H PRN PRN Reason: Heartburn Vancomycin HCl 1,250 mg/ (Sodium Chloride) 250 mls @ 166.667 mls/hr IV Q24H [facility] Magnesium Hydroxide (Milk Of Magnesia 30 Ml Oral.Susp) 30 ml PO DAILY PRN PRN Reason: Constipation Melatonin (Melatonin 3 Mg Tablet) 6 mg PO BEDTIME PRN PRN Reason: Insomnia Meropenem (Meropenem 1 Gm Vial) 1 gm IVPUSH Q8H [facility] Last Admin: 08/30/24 05:13 Dose: 1 gm Morphine Sulfate (Morphine Sulfate 2 Mg/Ml Cartridge) 1 mg IVPUSH Q4H PRN; Protocol PRN Reason: Pain, Severe (Pain Scale 7-10) Last Admin: 08/30/24 03:45 Dose: 1 mg Ondansetron HCl (Ondansetron Hcl 4 Mg/2 Ml Vial) 4 mg IVPUSH Q8H PRN PRN Reason: Nausea and Vomiting Pharmacy Consult (Consult Rx Vancomycin Dosing) 1 each MISCELLANE DAILY PRN PRN Reason: Consult order Sodium Chloride (0.9 % Sodium Chloride Flush 3 Ml Syringe) 3 ml IVFLUSH QSHIFT [facility] Last Admin: 08/30/24 07:48 Dose: Not Given Home Medications ?Medication ?Instructions ?Recorded ?Confirmed ?Last Taken ?Type acetaminophen 325 mg tablet 975 mg PO Q6H PRN Pain/Fever 06/26/24 08/30/24 Unknown History albuterol sulfate 2.5 mg/3 mL 2.5 mg inhalation Q4H PRN 06/26/24 08/30/24 Unknown History (0.083 %) solution for nebulization Shortness Of Breath Or Wheezing amiodarone 200 mg tablet 200 mg PO DAILY 06/26/24 08/30/24 Unknown History amlodipine 10 mg tablet 10 mg PO DAILY 06/26/24 08/30/24 Unknown History ascorbic acid (vitamin C) 500 mg 500 mg PO BID 06/26/24 08/30/24 Unknown History tablet bisacodyl 10 mg rectal suppository 10 mg SD DAILY PRN Constipation 06/26/24 08/30/24 Unknown History docusate sodium 100 mg tablet 100 mg PO BID 06/26/24 08/30/24 Unknown History famotidine 20 mg tablet 20 mg PO BEDTIME 06/26/24 08/30/24 Unknown History ferrous sulfate 325 mg (65 mg 325 mg PO BID 06/26/24 08/30/24 Unknown History iron) tablet gabapentin 100 mg capsule 100 mg PO BID 06/26/24 08/30/24 Unknown History levothyroxine 100 mcg tablet 100 mcg PO DAILY@0600 06/26/24 08/30/24 Unknown History magnesium hydroxide 400 mg/5 mL 30 ml PO Q72H PRN Constipation 06/26/24 08/30/24 Unknown History oral suspension (Milk of Magnesia) nystatin 100,000 unit/gram topical 1 appl topical BID 06/26/24 08/30/24 Unknown History powder polyvinyl alcohol 1.4 % eye drops 1 drp ophthalmic (eye) Q6H PRN Dry 06/26/24 08/30/24 Unknown History Eyes sennosides 8.6 mg tablet (senna) 17.2 mg PO BEDTIME 06/26/24 08/30/24 Unknown History thiamine HCl (vitamin B1) 100 mg 100 mg PO DAILY 06/26/24 08/30/24 Unknown History tablet (Vitamin B-1) Lactobacillus acidoph-L.bulgaricus 1 tab PO BID 08/11/24 08/30/24 Unknown History 1 million cell tablet apixaban 2.5 mg tablet (Eliquis) 2.5 mg PO BID 08/11/24 08/30/24 Unknown History collagenase clostridium histo. 250 1 appl topical DAILY 08/11/24 08/30/24 Unknown History unit/gram topical ointment (Santyl) menthol 5 % topical patch (Cold 1 patch topical DAILY 08/11/24 08/30/24 Unknown History and Hot (menthol)) multivitamin with minerals 1 tab PO DAILY 08/11/24 08/30/24 Unknown History ondansetron HCl 4 mg tablet 4 mg PO Q8H PRN Nausea And Vomiting 08/11/24 08/30/24 Unknown History sodium phosphates 19 gram-7 118 ml SD DAILY PRN Constipation 08/11/24 08/30/24 Unknown History gram/118 mL enema (Fleet Enema) zinc acetate 50 mg (zinc) capsule 50 mg PO DAILY 08/11/24 08/30/24 Unknown History melatonin 5 mg tablet 10 mg PO BEDTIME 08/20/24 08/30/24 Unknown History sodium hypochlorite 0.25 % solution 1 appl topical DAILY 08/30/24 08/30/24 Unknown History tramadol 50 mg tablet 50 mg PO Q8H PRN Pain 08/30/24 08/30/24 Unknown History Physical Exam Vital Signs: Vital Signs: Last Vital Signs Temp 97 F 08/30/24 07:08 Pulse 96 08/30/24 08:09 Resp 18 08/30/24 08:09 BP 108/55 L 08/30/24 07:08 Pulse Ox 98 08/30/24 08:09 O2 Del Method Room Air 08/30/24 08:09 BMI result Body Mass Index 28.1 Const: General: alert and awake Nutritional Appearance: average body habitus Resp: Effort & Inspection: normal respiratory effort and no respiratory distress GI: Palpation (GI): Soft to palpation Back/Spine/Pelvis: Other: Unable to adequately examined patient in the hallway. Results Labs 08/29/24 15:39 08/30/24 05:07 Labs: Abnormal lab results 02/20/25 02/20/25 02/21/25 Range/Units 15:39 16:24 05:07 RBC 2.83 L (4.60-5.80) X10*6/uL Hgb 7.8 L (14.0-18.0) g/dl Hct 24.9 L (42.0-52.0) % RDW 17.8 H (11.0-16.0) % MPV 9.2 L (9.4-12.4) fL Immature Gran % (Auto) 0.6 H (0.0-0.4) % [place] % (Auto) 12.5 H (2-11) % Abs Immat Gran (auto) 0.05 H (0.00-0.03) X10*3/uL PT 15.9 H (10.9-12.4) SEC INR 1.4 H (0.9-1.1) APTT 39.7 H (26.0-36.8) SEC Carbon Dioxide 20 L (22-29) mmol/L BUN 25 H 24 H (9-16) mg/dL Total Protein 6.3 L (6.5-8.0) g/dL Albumin 2.1 L 2.0 L (3.5-5.0) g/dL Urine Protein 300 (3+) H (Neg-Trace) mg/dL Urine Blood Small (1+) H (Negative) Ur Leukocyte Esterase Large (3+) H (Negative) Short CBC 08/29/24 Range/Units 15:39 WBC 7.9 (4.8-10.8) X10*3/uL Hgb 7.8 L (14.0-18.0) g/dl Hct 24.9 L (42.0-52.0) % Plt Count 293 (160-400) X10*3/uL BMP 08/29/24 08/30/24 15:39 05:07 Sodium 139 138 Potassium 4.3 3.9 Chloride 105 107 Carbon Dioxide 25 20 L BUN 25 H 24 H Creatinine 1.30 1.13 Calcium 8.6 8.4 Liver Function 08/29/24 08/30/24 Range/Units 15:39 05:07 Total Bilirubin 0.3 0.4 (0.0-1.0) mg/dL Direct Bilirubin 0.2 (0.0-0.5) mg/dL AST 24 22 (5-37) U/L ALT 6 < 6 (0-40) U/L Alkaline Phosphatase 103 93 (39-117) U/L Albumin 2.1 L 2.0 L (3.5-5.0) g/dL Urine 08/29/24 Range/Units 16:24 Urine Color Dark Yellow Urine Appearance Turbid Urine pH >= 9.0 (5.0-9.0) Ur Specific [place] 1.020 (1.005-1.025) Urine Protein 300 (3+) H (Neg-Trace) mg/dL Urine Glucose (UA) Negative (Negative) mg/dL All other labs normal. Assessment and Plan (1) Decubitus ulcer of sacral region, stage 4: Status: Acute Plan Patient with a known history of a stage IV decubitus ulcer returning for low hemoglobin. On CT abdomen and pelvis he was noted to have was noted to have severe cellulitis of decubitus region with small focus of osteomyelitis which was previously known clinically. Images of wound were reviewed. Severe excoriation of surrounding skin is noted. We will be difficult to apply wound VAC to this site because of the surrounding ulceration. Recommend continuing wet-to-dry dressings b.i.d.. We will review wounds once out of hallway. Procedures Date of Service Date of Service: 08/30/24
[2024-08-30] MEDS: 0.9 % Sodium Chloride Flush 3 ML SYRINGE IVFLUSH (14:42)
--- NOTE | 2024-08-30 14:53 | P.PNIM_ITS ---
Subjective Subjective Date of Service: 08/30/24 Interval History: Patient is sent from rehab facility due to low hemoglobin, hypotension. At present patient awake alert offers no acute complaints does complain of lower back discomfort, no fevers, no chills. Review of Systems All other system reviewed and are negative. Physical Exam 2 Vital Signs: Vital Signs: Last Vital Signs Temp 98.9 F 08/30/24 14:00 Pulse 81 08/30/24 14:00 Resp 16 08/30/24 14:00 BP 110/51 L 08/30/24 14:00 Pulse Ox 98 08/30/24 14:00 O2 Del Method Room Air 08/30/24 14:00 BMI result Body Mass Index 28.1 Const: Other: Constitutional : Awake alert in no acute distress Anicteric sclera Neck no JVD Cardiovascular : RRR Respiratory :clear, No respiratory distress Gastrointestinal: G tube in place not in use, soft, non tender Skin : Warm, Dry Extremities no edema Neurological : No focal deficit Sacral decubitus ulcers see pictures in admission note Objective Data Active Medications Acetaminophen (Acetaminophen 325 Mg Tablet) 650 mg PO Q6H PRN PRN Reason: Pain, Mild 1-3,fever,headache Apixaban (Apixaban 2.5 Mg Tablet) 2.5 mg PO BID [facility] Last Admin: 08/30/24 08:53 Dose: 2.5 mg Documented By: TRESSA Calcium Carbonate (Calcium Carbonate 750 Mg Tab.Chew) 750 mg PO Q4H PRN PRN Reason: Heartburn Vancomycin HCl 1,250 mg/ (Sodium Chloride) 250 mls @ 166.667 mls/hr IV Q24H [facility] Magnesium Hydroxide (Milk Of Magnesia 30 Ml Oral.Susp) 30 ml PO DAILY PRN PRN Reason: Constipation Melatonin (Melatonin 3 Mg Tablet) 6 mg PO BEDTIME PRN PRN Reason: Insomnia Meropenem (Meropenem 1 Gm Vial) 1 gm IVPUSH Q8H [facility] Last Admin: 08/30/24 14:41 Dose: 1 gm Documented By: STEPHANIE Morphine Sulfate (Morphine Sulfate 2 Mg/Ml Cartridge) 1 mg IVPUSH Q4H PRN; Protocol PRN Reason: Pain, Severe (Pain Scale 7-10) Last Admin: 08/30/24 03:45 Dose: 1 mg Documented By: HO.MCTA Ondansetron HCl (Ondansetron Hcl 4 Mg/2 Ml Vial) 4 mg IVPUSH Q8H PRN PRN Reason: Nausea and Vomiting Pharmacy Consult (Consult Rx Vancomycin Dosing) 1 each MISCELLANE DAILY PRN PRN Reason: Consult order Sodium Chloride (0.9 % Sodium Chloride Flush 3 Ml Syringe) 3 ml IVFLUSH QSHIFT [facility] Last Admin: 08/30/24 14:42 Dose: 3 ml Documented By: STEPHANIE Labs 08/29/24 15:39 08/30/24 05:07 Labs: Laboratory Results - last 24 hr 08/29/24 08/29/24 08/30/24 15:39 16:24 05:07 MCV 88.0 MCH 27.6 MCHC 31.3 RDW 17.8 H Plt Count 293 MPV 9.2 L Immature Gran % (Auto) 0.6 H Neut % (Auto) 61.2 Lymph % (Auto) 22.6 [place] % (Auto) 12.5 H Eos % (Auto) 2.7 Baso % (Auto) 0.4 Lymph # (Auto) 1.8 [place] # (Auto) 1.0 Eos # (Auto) 0.2 Baso # (Auto) 0.0 Abs Immat Gran (auto) 0.05 H Absolute Neuts (auto) 4.8 Absolute Nucleated RBC 0.000 Nucleated RBC % (auto) 0.0 PT 15.9 H INR 1.4 H APTT 39.7 H Anion Gap 13 15 Estim Creat Clear Calc 50.3 57.8 Estimated GFR 53 > 60 Random Glucose 104 84 Lactic Acid 1.1 Calcium 8.6 8.4 Magnesium 2.0 Total Bilirubin 0.3 0.4 Direct Bilirubin 0.2 AST 24 22 ALT 6 < 6 Alkaline Phosphatase 103 93 B-Natriuretic Peptide 64 Total Protein 6.8 6.3 L Albumin 2.1 L 2.0 L Urine Color Dark Yellow Urine Appearance Turbid Urine pH >= 9.0 Ur Specific [place] 1.020 Urine Protein 300 (3+) H Urine Glucose (UA) Negative Urine Ketones Negative Urine Blood Small (1+) H Urine Nitrite Negative Ur Leukocyte Esterase Large (3+) H Urine RBC 0-2 Urine WBC 21-50 Ur Squamous Epith Cells 0-2 Other Crystals Present Urine Bacteria 4+ Hyaline Casts 3-5 Influenza Type A (PCR) NEGATIVE Influenza Type B (PCR) NEGATIVE RSV RNA Qual (PCR) NEGATIVE SARS-CoV-2 RNA (RT-PCR) NEGATIVE Blood Type O Positive Antibody Screen NEGATIVE Microbiology Microbiology Results: Microbiology 08/29/24 16:24 Urine Culture - Preliminary Urine clean catch - Clean Catch Midstream Culture in progress. Assessment and Plan (1) Urinary tract infection: Status: Acute (2) Osteomyelitis: Status: Acute (3) Cellulitis: Status: Acute (4) Anemia: Status: Acute Plan 84M PMH PAF, HFrEF, HTN, CKD III, GALLITO, GERD, recurent UTI, decubit ulcers, dmentia, from SNF with infected decub ulcers. CT abdomen and pelvis findings: * Severe cellulitis in the decubitus region with a large soft tissue ulcer and a small focus of osteomyelitis of the sacrum. * Bilateral pelviectasis and perinephric fat infiltration, concerning for possible pyelonephritis?correlate with urinalysis Urinalysis showed negative nitrites, positive bacteria, and positive leukocyte esterase Acute Cellulitis and infected Sacral ulcer with acute osteomylitis On IV Vanco + Meropenen started on 08/29 Normal WBC ,blood cultures pending ID consult Wound consult pend Seen by General surgery they recommend to continue wet-to-dry dressing b.i.d. surgery will continue to follow patient frequent position change/protein supplements, offloading mattress Acute on chronic uti with indwelling desai, +UA could be colonization Abx as above ID consult CKD 3 Stable Cr, monitor BMP ch Anemia of chronic disease, stable H/H, monitor H&H if noted to trend down will DC Eliquis. Paroxysmal atrial fibrillation continue amiodarone and eliquis hypothyroid synthroid Sacral Pressure Ulcers-s/p extensive debridement by General surgery during recent hospitalization, being followed by General surgery Hypertension soft blood pressure hold Norvasc Urinary retention continue Cardura and finasteride DVT prophylaxis - Eliquis need for inpt: IV Abx for infected sacral ulcer with acute osteomylitis Quality Stroke Does the patient have a stroke diagnosis?: No VTE Prior VTE?: No VTE Risk Level:: Medical - moderate - high VTE Device Contraindication: N/A - Device Ordered VTE Drug Contraindication: N/A - Med Ordered
--- NOTE | 2024-08-30 15:40 | MHC.CLN ---
NUTRITION CONSULT FOR SKIN INTEGRITY. REGULAR DIET. ENSURE TID PROVIDES 1050 KCALS, 60 G PROTEIN. SUPPLEMENT TO PROMOTE WOUND HEALING. KNOWN FROM PRIOR ADMISSIONS WITH HX USUALLY POOR/FAIR PO INTAKE. SIGNIFICANT WEIGHT LOSS X 6 MONTHS. SKIN WITH STAGE IV PRESSURE INJURY TO COCCYX. FOLLOW FOR WOUND RN RECOMMENDATIONS. MONITOR PO INTAKE, WEIGHT AND SKIN INTEGRITY. SEE CLINICAL NUTRITION ASSESSMENT 08/30/24.
[2024-08-30] MEDS: Omeprazole 20 MG CAPSULE.DR PO (16:54)
[2024-08-30] MEDS: vancomycin HCL 1,250 MG in 0.9 % Sodium Chloride 250 ML 166.67 MG IV (16:54)
--- NOTE | 2024-08-30 17:43 | W.PM.IDCN ---
History of Present Illness Data of Consult Service Date: 08/30/24 Requesting physician: Bubba Cortez Primary Care Provider: MARKO Trivedi HPI Reason for consult: OM sacrum He presents to ER for workkup for anemia. He has ulcer sacrum and OM on CT pelvis. He has no fever or chills. He has been in hospital in June and finished IV Ertapenem for ESBL Klebsiella pneumonia urinary sepsis 14 d on 07/10/2024. He hasblood and urine cultures pending. Review of Systems Review of Systems: Yes Unobtainable due to mental status PMFSH Past Medical History Medical History Bilateral hydronephrosis Delirium Altered mental status Sepsis Atherosclerotic cardiovascular disease PAF (paroxysmal atrial fibrillation) NSTEMI (non-ST elevated myocardial infarction) Chronic renal disease, stage 3, moderately decreased glomerular filtration rate (GFR) between 30-59 mL/min/1.73 square meter Chest pain Heart failure Thyroid disease GERD (gastroesophageal reflux disease) On anticoagulant therapy COVID-19 vaccine series completed Symptomatic cholelithiasis HTN (hypertension) Hyperlipidemia Atrial fibrillation Sleep apnea Elevated PSA Facet arthropathy, cervical BPH loc w urin obs/LUTS Family History Family History Unknown No problems noted. Family history: reviewed and not pertinent Surgical History Surgical History S/P percutaneous endoscopic gastrostomy (PEG) tube placement Hx of tracheostomy S/P laparoscopic cholecystectomy Hx of cataract extraction History of total replacement of both hip joints Hx of cystoscopy H/O colonoscopy History of surgery Social History Social History Household Members: Spouse Housing: House Are you a primary director career to a significant other at home: No Do you presently have visiting nurse or other home services: Yes ([employer]PER[employer] 8hrs a day) Alcohol intake: never Comment: patient is chair, bedbound Patient Tobacco Use Status: Never used Tobacco Advance Directives Date on File: 03/07/24 service: No Current occupational status: retired Meds Allergies Allergy/AdvReac Type Severity Reaction Status Date / Time ibuprofen [IBUPROFEN] Allergy Intermediate HIVES Verified 08/29/24 15:22 hydromorphone [From DILAUDID] AdvReac Intermediate ILEUS Verified 08/10/24 23:34 procaine [From Novocain] AdvReac Intermediate has no Verified 08/10/24 23:34 numbing effect-states monocain works narcotic pain meds AdvReac Intermediate does not Uncoded 08/10/24 23:34 relieve pain per patient Active Medications: Current Medications Acetaminophen (Acetaminophen 325 Mg Tablet) 650 mg PO Q6H PRN PRN Reason: Pain, Mild 1-3,fever,headache Albuterol Sulfate (Albuterol Sulfate (0.083%) 2.5 Mg/3 Ml Vial.Neb) 2.5 mg INHALE Q4H PRN PRN Reason: Shortness Of Breath Or Wheezing Amiodarone HCl (Amiodarone Hcl 200 Mg Tablet) 200 mg PO DAILY [facility] Apixaban (Apixaban 2.5 Mg Tablet) 2.5 mg PO BID [facility] Last Admin: 08/30/24 08:53 Dose: 2.5 mg Ascorbic Acid (Ascorbic Acid 500 Mg Tablet) 500 mg PO BID [facility] Bisacodyl (Bisacodyl 10 Mg Supp.Rect) 10 mg OR DAILY PRN PRN Reason: Constipation Calcium Carbonate (Calcium Carbonate 750 Mg Tab.Chew) 750 mg PO Q4H PRN PRN Reason: Heartburn Collagenase (Collagenase Clostridium Hist. 30 Gm Tube) 1 appl TOPICAL DAILY [facility]; Protocol Docusate Sodium (Docusate Sodium 100 Mg Capsule) 100 mg PO BID [facility] Doxazosin Mesylate (Doxazosin Mesylate 2 Mg Tablet) 4 mg PO BEDTIME [facility]; Protocol Famotidine (Famotidine 20 Mg Tablet) 20 mg PO BEDTIME [facility] Ferrous Sulfate (Ferrous Sulfate 324 Mg Tablet.Dr) 324 mg PO BID [facility] Finasteride (Finasteride 5 Mg Tablet) 5 mg PO DAILY [facility] Gabapentin (Gabapentin 100 Mg Capsule) 100 mg PO BID [facility] Vancomycin HCl 1,250 mg/ (Sodium Chloride) 250 mls @ 166.667 mls/hr IV Q24H [facility] Last Admin: 08/30/24 16:54 Dose: 166.67 mls/hr Levothyroxine Sodium (Levothyroxine Sodium 100 Mcg Tablet) 100 mcg PO DAILY@0600 [facility] Magnesium Hydroxide (Milk Of Magnesia 30 Ml Oral.Susp) 30 ml PO DAILY PRN PRN Reason: Constipation Melatonin (Melatonin 3 Mg Tablet) 9 mg PO BEDTIME [facility] Meropenem (Meropenem 1 Gm Vial) 1 gm IVPUSH Q8H [facility] Last Admin: 08/30/24 14:41 Dose: 1 gm Morphine Sulfate (Morphine Sulfate 2 Mg/Ml Cartridge) 1 mg IVPUSH Q4H PRN; Protocol PRN Reason: Pain, Severe (Pain Scale 7-10) Last Admin: 08/30/24 15:19 Dose: 1 mg Multivitamins/Vitamin C (Multivitamin Tablet) 1 tab PO DAILY [facility] Nystatin (Nystatin Powder 15 Gm Bottle) 1 appl TOPICAL BID [facility]; Protocol Omeprazole (Omeprazole 20 Mg Capsule.Dr) 20 mg PO BID@0630,1630 [facility] Last Admin: 08/30/24 16:54 Dose: 20 mg Ondansetron HCl (Ondansetron Hcl 4 Mg/2 Ml Vial) 4 mg IVPUSH Q8H PRN PRN Reason: Nausea and Vomiting Pharmacy Consult (Consult Rx Vancomycin Dosing) 1 each MISCELLANE DAILY PRN PRN Reason: Consult order Polyethylene Glycol (Polyethylene Glycol 3350 17 Gm Powd.Pack) 17 gm PO DAILY [facility] Senna (Sennosides 8.6 Mg Tablet) 17.2 mg PO BEDTIME [facility] Sodium Chloride (0.9 % Sodium Chloride Flush 3 Ml Syringe) 3 ml IVFLUSH QSHIFT [facility] Last Admin: 08/30/24 14:42 Dose: 3 ml Thiamine HCl (Thiamine Hcl 100 Mg Tablet) 100 mg PO DAILY [facility] Home Medications ?Medication ?Instructions ?Recorded ?Confirmed ?Last Taken ?Type acetaminophen 325 mg tablet 975 mg PO Q6H PRN Pain/Fever 06/26/24 08/30/24 Unknown History albuterol sulfate 2.5 mg/3 mL 2.5 mg inhalation Q4H PRN 06/26/24 08/30/24 Unknown History (0.083 %) solution for nebulization Shortness Of Breath Or Wheezing amiodarone 200 mg tablet 200 mg PO DAILY 06/26/24 08/30/24 Unknown History amlodipine 10 mg tablet 10 mg PO DAILY 06/26/24 08/30/24 Unknown History ascorbic acid (vitamin C) 500 mg 500 mg PO BID 06/26/24 08/30/24 Unknown History tablet bisacodyl 10 mg rectal suppository 10 mg OR DAILY PRN Constipation 06/26/24 08/30/24 Unknown History docusate sodium 100 mg tablet 100 mg PO BID 06/26/24 08/30/24 Unknown History famotidine 20 mg tablet 20 mg PO BEDTIME 06/26/24 08/30/24 Unknown History ferrous sulfate 325 mg (65 mg 325 mg PO BID 06/26/24 08/30/24 Unknown History iron) tablet gabapentin 100 mg capsule 100 mg PO BID 06/26/24 08/30/24 Unknown History levothyroxine 100 mcg tablet 100 mcg PO DAILY@0600 06/26/24 08/30/24 Unknown History magnesium hydroxide 400 mg/5 mL 30 ml PO Q72H PRN Constipation 06/26/24 08/30/24 Unknown History oral suspension (Milk of Magnesia) nystatin 100,000 unit/gram topical 1 appl topical BID 06/26/24 08/30/24 Unknown History powder polyvinyl alcohol 1.4 % eye drops 1 drp ophthalmic (eye) Q6H PRN Dry 06/26/24 08/30/24 Unknown History Eyes sennosides 8.6 mg tablet (senna) 17.2 mg PO BEDTIME 06/26/24 08/30/24 Unknown History thiamine HCl (vitamin B1) 100 mg 100 mg PO DAILY 06/26/24 08/30/24 Unknown History tablet (Vitamin B-1) Lactobacillus acidoph-L.bulgaricus 1 tab PO BID 08/11/24 08/30/24 Unknown History 1 million cell tablet apixaban 2.5 mg tablet (Eliquis) 2.5 mg PO BID 08/11/24 08/30/24 Unknown History collagenase clostridium histo. 250 1 appl topical DAILY 08/11/24 08/30/24 Unknown History unit/gram topical ointment (Santyl) menthol 5 % topical patch (Cold 1 patch topical DAILY 08/11/24 08/30/24 Unknown History and Hot (menthol)) multivitamin with minerals 1 tab PO DAILY 08/11/24 08/30/24 Unknown History ondansetron HCl 4 mg tablet 4 mg PO Q8H PRN Nausea And Vomiting 08/11/24 08/30/24 Unknown History sodium phosphates 19 gram-7 118 ml OR DAILY PRN Constipation 08/11/24 08/30/24 Unknown History gram/118 mL enema (Fleet Enema) zinc acetate 50 mg (zinc) capsule 50 mg PO DAILY 08/11/24 08/30/24 Unknown History melatonin 5 mg tablet 10 mg PO BEDTIME 08/20/24 08/30/24 Unknown History sodium hypochlorite 0.25 % solution 1 appl topical DAILY 08/30/24 08/30/24 Unknown History tramadol 50 mg tablet 50 mg PO Q8H PRN Pain 08/30/24 08/30/24 Unknown History Physical Exam Vital Signs: Vital Signs: Last Vital Signs Temp 97.8 F 08/30/24 15:40 Pulse 79 08/30/24 15:40 Resp 18 08/30/24 15:40 BP 112/54 L 08/30/24 15:40 Pulse Ox 98 08/30/24 15:40 O2 Del Method Room Air 08/30/24 15:40 BMI result Body Mass Index 28.1 Extrem: Other: deep sacral ulcers Results Labs 08/29/24 15:39 08/30/24 05:07 Labs: BMP 08/30/24 05:07 Sodium 138 Potassium 3.9 Chloride 107 Carbon Dioxide 20 L BUN 24 H Creatinine 1.13 Calcium 8.4 Liver Function 08/30/24 Range/Units 05:07 Total Bilirubin 0.4 (0.0-1.0) mg/dL AST 22 (5-37) U/L ALT < 6 (0-40) U/L Alkaline Phosphatase 93 (39-117) U/L Albumin 2.0 L (3.5-5.0) g/dL Microbiology Microbiology Results: Microbiology 08/29/24 16:24 Urine clean catch - Clean Catch Midstream Urine Culture - Preliminary Culture in progress. Assessment and Plan (1) Osteomyelitis: Status: Acute (2) Urinary tract infection: Status: Acute (3) Cellulitis: Status: Acute Plan OM pelvis Possible resistant organism Possible gram negative or staph including MRSA Would give IV Ertapenem and Vancomycin likely six weeks unless cultures dictate otherwise. Plastics Surgery consult outpatient see if candidate for closure of buttock wound.
[2024-08-30] MEDS: Melatonin 3 MG TABLET 9 MG PO (21:53)
[2024-08-30] MEDS: Famotidine 20 MG TABLET PO (21:53)
[2024-08-30] MEDS: Docusate Sodium 100 MG CAPSULE PO (21:53)
[2024-08-30] MEDS: Gabapentin 100 MG CAPSULE PO (21:54)
[2024-08-30] MEDS: Ascorbic Acid 500 MG TABLET PO (21:54)
[2024-08-30] MEDS: Sennosides 8.6 MG TABLET 17.2 MG PO (21:54)
[2024-08-30] MEDS: Ferrous Sulfate 324 MG TABLET.DR PO (21:54)
[2024-08-30] MEDS: Doxazosin Mesylate 2 MG TABLET 4 MG PO (21:54)
[2024-08-30] MEDS: Nystatin Powder 15 GM BOTTLE 1 APPL TOPICAL (22:31)
[2024-08-31] VITALS (9 sets, daily range): BP systolic 93–114; BP diastolic 43–58; PULSE 75–82; RESP 12–18; TEMP 36.2–37; O2SAT 92–97
[2024-08-31] MEDS: Meropenem 1 GM VIAL IVPUSH ×3 (05:05→19:44)
[2024-08-31] MEDS: Levothyroxine Sodium 100 MCG TABLET PO (05:24)
[2024-08-31] MEDS: Omeprazole 20 MG CAPSULE.DR PO ×2 (05:24→17:11)
[2024-08-31] MEDS: Morphine Sulfate 2 MG/ML CARTRIDGE 1 MG IVPUSH ×3 (05:29→20:13)
[2024-08-31 06:34] LABS: Creatinine Clr Calc Pharmacy 51.1; Estimated Glomerular Filt Rate 54
[2024-08-31] MEDS: Multivitamin TABLET 1 TAB PO (09:25)
[2024-08-31] MEDS: Apixaban 2.5 MG TABLET PO ×2 (09:25→19:43)
[2024-08-31] MEDS: Amiodarone HCL 200 MG TABLET PO (09:25)
[2024-08-31] MEDS: Gabapentin 100 MG CAPSULE PO ×2 (09:25→19:44)
[2024-08-31] MEDS: Ferrous Sulfate 324 MG TABLET.DR PO ×2 (09:25→19:43)
[2024-08-31] MEDS: polyethylene glycoL 3350 17 GM POWD.PACK PO (09:25)
[2024-08-31] MEDS: Ascorbic Acid 500 MG TABLET PO ×2 (09:25→19:44)
[2024-08-31] MEDS: Thiamine HCL 100 MG TABLET PO (09:25)
[2024-08-31] MEDS: 0.9 % Sodium Chloride Flush 3 ML SYRINGE IVFLUSH ×3 (09:25→19:45)
[2024-08-31] MEDS: Finasteride 5 MG TABLET PO (09:25)
[2024-08-31] MEDS: Docusate Sodium 100 MG CAPSULE PO ×2 (09:25→19:44)
[2024-08-31] MEDS: Nystatin Powder 15 GM BOTTLE 1 APPL TOPICAL ×2 (09:50→19:44)
[2024-08-31] MEDS: Collagenase Clostridium Hist. 30 GM TUBE 1 APPL TOPICAL (09:50)
--- NOTE | 2024-08-31 12:12 | P.PNIM_ITS ---
Subjective Subjective Date of Service: 08/31/24 Interval History: Admitted for low hemoglobin/hypotension Offers no acute complaints denies back pain, feels hungry requesting for breakfast, denies fever, no chills, no headache or dizziness Review of Systems All other system reviewed and are negative Physical Exam 2 Vital Signs: Vital Signs: Last Vital Signs Temp 97.6 F 08/31/24 08:19 Pulse 75 08/31/24 08:19 Resp 12 08/31/24 08:19 BP 99/52 L 08/31/24 09:22 Pulse Ox 96 08/31/24 08:19 O2 Del Method Room Air 08/31/24 08:19 BMI result Body Mass Index 28.1 Const: Other: Constitutional : Awake alert in no acute distress Anicteric sclera Neck no JVD Cardiovascular : RRR Respiratory :clear, No respiratory distress Gastrointestinal: G tube in place not in use, soft, non tender Skin : Warm, Dry Extremities no edema Neurological : No focal deficit Sacral decubitus ulcers see pictures in admission note Objective Data Active Medications Acetaminophen (Acetaminophen 325 Mg Tablet) 650 mg PO Q6H PRN PRN Reason: Pain, Mild 1-3,fever,headache Albuterol Sulfate (Albuterol Sulfate (0.083%) 2.5 Mg/3 Ml Vial.Neb) 2.5 mg INHALE Q4H PRN PRN Reason: Shortness Of Breath Or Wheezing Amiodarone HCl (Amiodarone Hcl 200 Mg Tablet) 200 mg PO DAILY [facility] Last Admin: 08/31/24 09:25 Dose: 200 mg Documented By: JADON Apixaban (Apixaban 2.5 Mg Tablet) 2.5 mg PO BID [facility] Last Admin: 08/31/24 09:25 Dose: 2.5 mg Documented By: JADON Ascorbic Acid (Ascorbic Acid 500 Mg Tablet) 500 mg PO BID [facility] Last Admin: 08/31/24 09:25 Dose: 500 mg Documented By: JADON Bisacodyl (Bisacodyl 10 Mg Supp.Rect) 10 mg IA DAILY PRN PRN Reason: Constipation Calcium Carbonate (Calcium Carbonate 750 Mg Tab.Chew) 750 mg PO Q4H PRN PRN Reason: Heartburn Collagenase (Collagenase Clostridium Hist. 30 Gm Tube) 1 appl TOPICAL DAILY [facility]; Protocol Last Admin: 08/31/24 09:50 Dose: 1 appl Documented By: JADON Docusate Sodium (Docusate Sodium 100 Mg Capsule) 100 mg PO BID [facility] Last Admin: 08/31/24 09:25 Dose: 100 mg Documented By: JADON Doxazosin Mesylate (Doxazosin Mesylate 2 Mg Tablet) 4 mg PO BEDTIME [facility]; Protocol Last Admin: 08/30/24 21:54 Dose: 4 mg Documented By: VINICIO Famotidine (Famotidine 20 Mg Tablet) 20 mg PO BEDTIME [facility] Last Admin: 08/30/24 21:53 Dose: 20 mg Documented By: VINICIO Ferrous Sulfate (Ferrous Sulfate 324 Mg Tablet.Dr) 324 mg PO BID [facility] Last Admin: 08/31/24 09:25 Dose: 324 mg Documented By: JADON Finasteride (Finasteride 5 Mg Tablet) 5 mg PO DAILY [facility] Last Admin: 08/31/24 09:25 Dose: 5 mg Documented By: JADON Gabapentin (Gabapentin 100 Mg Capsule) 100 mg PO BID [facility] Last Admin: 08/31/24 09:25 Dose: 100 mg Documented By: JADON Vancomycin HCl 1,250 mg/ (Sodium Chloride) 250 mls @ 166.667 mls/hr IV Q24H [facility] Last Infusion: 08/30/24 18:33 Dose: Infused Documented By: STEPHANIE Levothyroxine Sodium (Levothyroxine Sodium 100 Mcg Tablet) 100 mcg PO DAILY@0600 [facility] Last Admin: 08/31/24 05:24 Dose: 100 mcg Documented By: VINICIO Magnesium Hydroxide (Milk Of Magnesia 30 Ml Oral.Susp) 30 ml PO DAILY PRN PRN Reason: Constipation Melatonin (Melatonin 3 Mg Tablet) 9 mg PO BEDTIME [facility] Last Admin: 08/30/24 21:53 Dose: 9 mg Documented By: VINICIO Meropenem (Meropenem 1 Gm Vial) 1 gm IVPUSH Q8H [facility] Last Admin: 08/31/24 05:05 Dose: 1 gm Documented By: VINICIO Morphine Sulfate (Morphine Sulfate 2 Mg/Ml Cartridge) 1 mg IVPUSH Q4H PRN; Protocol PRN Reason: Pain, Severe (Pain Scale 7-10) Last Admin: 08/31/24 09:53 Dose: 1 mg Documented By: JADON Multivitamins/Vitamin C (Multivitamin Tablet) 1 tab PO DAILY [facility] Last Admin: 08/31/24 09:25 Dose: 1 tab Documented By: JADON Nystatin (Nystatin Powder 15 Gm Bottle) 1 appl TOPICAL BID [facility]; Protocol Last Admin: 08/31/24 09:50 Dose: 1 appl Documented By: JADON Omeprazole (Omeprazole 20 Mg Capsule.) 20 mg PO BID@0630,1630 [facility] Last Admin: 08/31/24 05:24 Dose: 20 mg Documented By: VINICIO Ondansetron HCl (Ondansetron Hcl 4 Mg/2 Ml Vial) 4 mg IVPUSH Q8H PRN PRN Reason: Nausea and Vomiting Pharmacy Consult (Consult Rx Vancomycin Dosing) 1 each MISCELLANE DAILY PRN PRN Reason: Consult order Polyethylene Glycol (Polyethylene Glycol 3350 17 Gm Powd.Pack) 17 gm PO DAILY [facility] Last Admin: 08/31/24 09:25 Dose: 17 gm Documented By: JADON Senna (Sennosides 8.6 Mg Tablet) 17.2 mg PO BEDTIME [facility] Last Admin: 08/30/24 21:54 Dose: 17.2 mg Documented By: VINICIO Sodium Chloride (0.9 % Sodium Chloride Flush 3 Ml Syringe) 3 ml IVFLUSH QSHIFT [facility] Last Admin: 08/31/24 09:25 Dose: 3 ml Documented By: JADON Thiamine HCl (Thiamine Hcl 100 Mg Tablet) 100 mg PO DAILY [facility] Last Admin: 08/31/24 09:25 Dose: 100 mg Documented By: JADON Labs 08/29/24 15:39 08/31/24 05:38 Labs: Laboratory Results - last 24 hr 08/31/24 05:38 Hold Purple Top SEE NOTE Estim Creat Clear Calc 51.1 Estimated GFR 54 Microbiology Microbiology Results: Microbiology 08/29/24 16:02 Blood Culture - Preliminary Blood - Venous No growth after 24 hours. 08/29/24 15:39 Blood Culture - Preliminary Blood - Venous No growth after 24 hours. 08/29/24 16:24 Urine Culture - Preliminary Urine clean catch - Clean Catch Midstream Culture in progress. Assessment and Plan (1) Urinary tract infection: Status: Acute (2) Osteomyelitis: Status: Acute (3) Cellulitis: Status: Acute (4) Anemia: Status: Acute (5) Decubitus ulcer of sacral region, stage 4: Status: Acute Plan 84M PMH PAF, HFrEF, HTN, CKD III, GALLITO, GERD, recurent UTI, decubit ulcers, dementia, from SNF due to hypotension and anemia and noted to infected decub ulcers. CT abdomen and pelvis findings: * Severe cellulitis in the decubitus region with a large soft tissue ulcer and a small focus of osteomyelitis of the sacrum. * Bilateral pelviectasis and perinephric fat infiltration, concerning for possible pyelonephritis?correlate with urinalysis Urinalysis showed negative nitrites, positive bacteria, and positive leukocyte esterase Acute Cellulitis and infected Sacral ulcer with acute osteomylitis Continue IV Vanco + Meropenen started on 08/29 Normal WBC ,blood cultures pending Seen by ID she recommend IV ertapenem and vanco likely 6 weeks unless culture dictate otherwise Wound consult pend Seen by General surgery they recommend to continue wet-to-dry dressing b.i.d. surgery will continue to follow patient frequent position change/protein supplements, offloading mattress Acute on chronic uti with indwelling desai, +UA ? colonization Abx as above Follow urine and blood culture CKD 3 Stable Cr, follow BMP Ch Anemia of chronic disease, stable H/H, monitor H&H if noted to trend down will DC Eliquis. Paroxysmal atrial fibrillation continue amiodarone and eliquis hypothyroid cont. synthroid Sacral Pressure Ulcers-s/p extensive debridement by General surgery during recent hospitalization, being followed by General surgery continue dressing change as per General surgery Hypertension soft blood pressure hold Norvasc Urinary retention continue Cardura and finasteride DVT prophylaxis - Eliquis need for inpt: IV Abx for infected sacral ulcer with acute osteomylitis Quality Stroke Does the patient have a stroke diagnosis?: No VTE Prior VTE?: No VTE Risk Level:: Medical - moderate - high VTE Device Contraindication: N/A - Device Ordered VTE Drug Contraindication: N/A - Med Ordered
[2024-08-31 15:52] LABS: Vancomycin Random 20.2 mcg/mL (15-20)
--- NOTE | 2024-08-31 16:08 | HE.PHANOTE ---
VANCO DOSE ADJUSTMENT BASED ON SCR AND TROUGH OF 20.2 DOSE DECREASED TO 750 Q 24H. NEXT LEVEL 09/02 @ 2100.
[2024-08-31] MEDS: Doxazosin Mesylate 2 MG TABLET 4 MG PO (19:43)
[2024-08-31] MEDS: Sennosides 8.6 MG TABLET 17.2 MG PO (19:43)
[2024-08-31] MEDS: Famotidine 20 MG TABLET PO (19:43)
[2024-08-31] MEDS: Melatonin 3 MG TABLET 9 MG PO (19:43)
[2024-08-31] MEDS: vancomycin HCL 750 MG in 0.9 % Sodium Chloride 250 ML 265 MG IV (23:08)
[2024-09-01] VITALS (7 sets, daily range): BP systolic 96–110; BP diastolic 49–62; PULSE 77–86; RESP 16–18; TEMP 36.3–37.6; O2SAT 93–100
[2024-09-01] MEDS: Meropenem 1 GM VIAL IVPUSH ×3 (05:09→20:57)
[2024-09-01] MEDS: Levothyroxine Sodium 100 MCG TABLET PO (05:51)
[2024-09-01] MEDS: Omeprazole 20 MG CAPSULE.DR PO ×2 (05:51→16:16)
[2024-09-01] MEDS: Morphine Sulfate 2 MG/ML CARTRIDGE 1 MG IVPUSH ×3 (06:21→23:48)
[2024-09-01 07:00] LABS: Creatinine Clr Calc Pharmacy 54.9; Estimated Glomerular Filt Rate 58
[2024-09-01] MEDS: 0.9 % Sodium Chloride Flush 3 ML SYRINGE IVFLUSH ×3 (09:40→20:57)
[2024-09-01] MEDS: Ascorbic Acid 500 MG TABLET PO ×2 (09:41→20:57)
[2024-09-01] MEDS: Amiodarone HCL 200 MG TABLET PO (09:41)
[2024-09-01] MEDS: Gabapentin 100 MG CAPSULE PO ×2 (09:41→20:56)
[2024-09-01] MEDS: Ferrous Sulfate 324 MG TABLET.DR PO ×2 (09:41→20:56)
[2024-09-01] MEDS: Finasteride 5 MG TABLET PO (09:41)
[2024-09-01] MEDS: Docusate Sodium 100 MG CAPSULE PO ×2 (09:41→20:57)
[2024-09-01] MEDS: polyethylene glycoL 3350 17 GM POWD.PACK PO (09:41)
[2024-09-01] MEDS: Thiamine HCL 100 MG TABLET PO (09:41)
[2024-09-01] MEDS: Multivitamin TABLET 1 TAB PO (09:41)
[2024-09-01] MEDS: Apixaban 2.5 MG TABLET PO ×2 (09:41→20:56)
[2024-09-01] MEDS: Nystatin Powder 15 GM BOTTLE 1 APPL TOPICAL ×2 (09:41→21:00)
[2024-09-01] MEDS: Collagenase Clostridium Hist. 30 GM TUBE 1 APPL TOPICAL (09:42)
--- NOTE | 2024-09-01 13:36 | P.PNIM_ITS ---
Subjective Subjective Date of Service: 09/01/24 Interval History: Patient awake alert eating breakfast, complaining of lower back discomfort, denies fever, no chills, no acute issues overnight. Review of Systems All other system reviewed and are negative Physical Exam 2 Vital Signs: Vital Signs: Last Vital Signs Temp 97.7 F 09/01/24 11:44 Pulse 83 09/01/24 11:44 Resp 16 09/01/24 11:44 BP 97/52 L 09/01/24 11:44 Pulse Ox 96 09/01/24 11:44 O2 Del Method Room Air 09/01/24 11:44 O2 Flow Rate 2 09/01/24 03:52 BMI result Body Mass Index 28.1 Const: Other: Constitutional : Awake alert in no acute distress Anicteric sclera Neck no JVD Cardiovascular : RRR Respiratory :clear, No respiratory distress Gastrointestinal: G tube in place not in use, soft, non tender Skin : Warm, Dry Extremities no edema Neurological : No focal deficit Sacral decubitus ulcers see pictures in admission note Objective Data Active Medications Acetaminophen (Acetaminophen 325 Mg Tablet) 650 mg PO Q6H PRN PRN Reason: Pain, Mild 1-3,fever,headache Albuterol Sulfate (Albuterol Sulfate (0.083%) 2.5 Mg/3 Ml Vial.Neb) 2.5 mg INHALE Q4H PRN PRN Reason: Shortness Of Breath Or Wheezing Amiodarone HCl (Amiodarone Hcl 200 Mg Tablet) 200 mg PO DAILY [facility] Last Admin: 09/01/24 09:41 Dose: 200 mg Documented By: JADON Apixaban (Apixaban 2.5 Mg Tablet) 2.5 mg PO BID [facility] Last Admin: 09/01/24 09:41 Dose: 2.5 mg Documented By: JADON Ascorbic Acid (Ascorbic Acid 500 Mg Tablet) 500 mg PO BID [facility] Last Admin: 09/01/24 09:41 Dose: 500 mg Documented By: JADON Bisacodyl (Bisacodyl 10 Mg Supp.Rect) 10 mg [place] DAILY PRN PRN Reason: Constipation Calcium Carbonate (Calcium Carbonate 750 Mg Tab.Chew) 750 mg PO Q4H PRN PRN Reason: Heartburn Collagenase (Collagenase Clostridium Hist. 30 Gm Tube) 1 appl TOPICAL DAILY [facility]; Protocol Last Admin: 09/01/24 09:42 Dose: 1 appl Documented By: JADON Docusate Sodium (Docusate Sodium 100 Mg Capsule) 100 mg PO BID [facility] Last Admin: 09/01/24 09:41 Dose: 100 mg Documented By: JADON Doxazosin Mesylate (Doxazosin Mesylate 2 Mg Tablet) 4 mg PO BEDTIME [facility]; Protocol Last Admin: 08/31/24 19:43 Dose: 4 mg Documented By: VINICIO Famotidine (Famotidine 20 Mg Tablet) 20 mg PO BEDTIME [facility] Last Admin: 08/31/24 19:43 Dose: 20 mg Documented By: VINICIO Ferrous Sulfate (Ferrous Sulfate 324 Mg Tablet.Dr) 324 mg PO BID [facility] Last Admin: 09/01/24 09:41 Dose: 324 mg Documented By: JADON Finasteride (Finasteride 5 Mg Tablet) 5 mg PO DAILY [facility] Last Admin: 09/01/24 09:41 Dose: 5 mg Documented By: JADON Gabapentin (Gabapentin 100 Mg Capsule) 100 mg PO BID [facility] Last Admin: 09/01/24 09:41 Dose: 100 mg Documented By: JADON Vancomycin HCl 750 mg/ Sodium (Chloride) 265 mls @ 265 mls/hr IV Q24H [facility] Last Infusion: 09/01/24 00:19 Dose: Infused Documented By: VINICIO Levothyroxine Sodium (Levothyroxine Sodium 100 Mcg Tablet) 100 mcg PO DAILY@0600 [facility] Last Admin: 09/01/24 05:51 Dose: 100 mcg Documented By: VINICIO Magnesium Hydroxide (Milk Of Magnesia 30 Ml Oral.Susp) 30 ml PO DAILY PRN PRN Reason: Constipation Melatonin (Melatonin 3 Mg Tablet) 9 mg PO BEDTIME [facility] Last Admin: 08/31/24 19:43 Dose: 9 mg Documented By: VINICIO Meropenem (Meropenem 1 Gm Vial) 1 gm IVPUSH Q8H [facility] Last Admin: 09/01/24 13:23 Dose: 1 gm Documented By: JADON Morphine Sulfate (Morphine Sulfate 2 Mg/Ml Cartridge) 1 mg IVPUSH Q4H PRN; Protocol PRN Reason: Pain, Severe (Pain Scale 7-10) Last Admin: 09/01/24 11:18 Dose: 1 mg Documented By: JADON Multivitamins/Vitamin C (Multivitamin Tablet) 1 tab PO DAILY [facility] Last Admin: 09/01/24 09:41 Dose: 1 tab Documented By: JADON Nystatin (Nystatin Powder 15 Gm Bottle) 1 appl TOPICAL BID [facility]; Protocol Last Admin: 09/01/24 09:41 Dose: 1 appl Documented By: JADON Omeprazole (Omeprazole 20 Mg Capsule.Dr) 20 mg PO BID@0630,1630 [facility] Last Admin: 09/01/24 05:51 Dose: 20 mg Documented By: VINICIO Ondansetron HCl (Ondansetron Hcl 4 Mg/2 Ml Vial) 4 mg IVPUSH Q8H PRN PRN Reason: Nausea and Vomiting Pharmacy Consult (Consult Rx Vancomycin Dosing) 1 each MISCELLANE DAILY PRN PRN Reason: Consult order Polyethylene Glycol (Polyethylene Glycol 3350 17 Gm Powd.Pack) 17 gm PO DAILY [facility] Last Admin: 09/01/24 09:41 Dose: 17 gm Documented By: JADON Senna (Sennosides 8.6 Mg Tablet) 17.2 mg PO BEDTIME [facility] Last Admin: 08/31/24 19:43 Dose: 17.2 mg Documented By: VINICIO Sodium Chloride (0.9 % Sodium Chloride Flush 3 Ml Syringe) 3 ml IVFLUSH QSHIFT [facility] Last Admin: 09/01/24 09:40 Dose: 3 ml Documented By: JADON Thiamine HCl (Thiamine Hcl 100 Mg Tablet) 100 mg PO DAILY [facility] Last Admin: 09/01/24 09:41 Dose: 100 mg Documented By: JADON Labs 08/29/24 15:39 09/01/24 06:30 Labs: Laboratory Results - last 24 hr 08/31/24 09/01/24 14:52 06:30 Estim Creat Clear Calc 54.9 Estimated GFR 58 Random Vancomycin 20.2 H Microbiology Microbiology Results: Microbiology 08/29/24 16:24 Urine Culture - Final Urine clean catch - Clean Catch Midstream Klebsiella pneumoniae Proteus mirabilis 08/29/24 16:02 Blood Culture - Preliminary Blood - Venous No growth after 48 hours. 08/29/24 15:39 Blood Culture - Preliminary Blood - Venous No growth after 48 hours. Assessment and Plan (1) Urinary tract infection: Status: Acute Plan 84M PMH PAF, HFrEF, HTN, CKD III, GALLITO, GERD, recurent UTI, decubitus ulcers, dementia, from SNF due to hypotension and anemia and noted to have infected decub ulcers. CT abdomen and pelvis findings: * Severe cellulitis in the decubitus region with a large soft tissue ulcer and a small focus of osteomyelitis of the sacrum. * Bilateral pelviectasis and perinephric fat infiltration, concerning for possible pyelonephritis?correlate with urinalysis Urinalysis showed negative nitrites, positive bacteria, and positive leukocyte esterase Acute Cellulitis and infected Sacral ulcer with acute osteomylitis Continue IV Vanco + Meropenen started on 08/29 Normal WBC ,blood cultures negative times 48 hours Seen by ID she recommend IV ertapenem and vanco likely 6 weeks unless culture dictate otherwise Wound consult pend Seen by General surgery they recommend to continue wet-to-dry dressing b.i.d. surgery will continue to follow patient frequent position change/protein supplements, offloading mattress Will likely need PICC line Acute on chronic uti with indwelling desai, Urine culture grew Klebsiella pneumoniae greater than 100,000, ESBL positive only sensitive to ertapenem and gentamicin, and Proteus mirabilis greater than 100,000 pansensitive Continue meropenem as above Blood cultures x2 negative CKD 3 Stable Cr, follow BMP Ch Anemia,likley of chronic kidney disease, stable H/H, monitor H&H if noted to trend down will DC Eliquis. Paroxysmal atrial fibrillation continue amiodarone and eliquis hypothyroid cont. synthroid Sacral Pressure Ulcers-s/p extensive debridement by General surgery during recent hospitalization, being followed by General surgery continue dressing change as per General surgery Hypertension soft blood pressure hold Norvasc Urinary retention continue Cardura and finasteride DVT prophylaxis - Eliquis need for inpt: IV Abx for infected sacral ulcer with acute osteomylitis Quality Stroke Does the patient have a stroke diagnosis?: No VTE Prior VTE?: No VTE Risk Level:: Medical - moderate - high VTE Device Contraindication: N/A - Device Ordered VTE Drug Contraindication: N/A - Med Ordered
--- NOTE | 2024-09-01 18:11 | PC.NURSE ---
Patient is refusing to reposition every 2 hours
[2024-09-01] MEDS: Sennosides 8.6 MG TABLET 17.2 MG PO (20:56)
[2024-09-01] MEDS: Melatonin 3 MG TABLET 9 MG PO (20:56)
[2024-09-01] MEDS: Doxazosin Mesylate 2 MG TABLET 4 MG PO (20:57)
[2024-09-01] MEDS: Famotidine 20 MG TABLET PO (20:57)
[2024-09-01] MEDS: vancomycin HCL 750 MG in 0.9 % Sodium Chloride 250 ML 265 MG IV (23:47)
[2024-09-02] VITALS (12 sets, daily range): BP systolic 100–118; BP diastolic 53–60; PULSE 73–91; RESP 16–18; TEMP 36.3–37.2; O2SAT 93–100
[2024-09-02] MEDS: Morphine Sulfate 2 MG/ML CARTRIDGE 1 MG IVPUSH ×3 (04:18→20:54)
[2024-09-02] MEDS: Meropenem 1 GM VIAL IVPUSH ×3 (04:45→20:27)
[2024-09-02] MEDS: Levothyroxine Sodium 100 MCG TABLET PO (04:46)
[2024-09-02] MEDS: Omeprazole 20 MG CAPSULE.DR PO ×2 (04:50→17:12)
[2024-09-02 05:55] LABS: Hematocrit 21.1 % (42.0-52.0); Mean Corpuscular HGB Conc 30.3 g/dl (31.0-36.0); Mean Corpuscular Hemoglobin 27.4 pg (27.0-33.0); Mean Corpuscular Volume 90.2 fL (80.0-98.0); Mean Platelet Volume 8.6 fL (9.4-12.4); Platelet Count 256 X10*3/uL (160-400); Red Blood Count 2.34 X10*6/uL (4.60-5.80); Red Cell Distribution Width 17.9 % (11.0-16.0); White Blood Count 4.5 X10*3/uL (4.8-10.8)
[2024-09-02 06:03] LABS: Hemoglobin 6.4 g/dl (14.0-18.0)
[2024-09-02 06:12] LABS: Creatinine Clr Calc Pharmacy 56.4; Estimated Glomerular Filt Rate 60
--- NOTE | 2024-09-02 08:51 | HO.SKINPHOTO ---
Images taken 10/[address] 3 coccyx. L hip- st 2/deep tissue Unstageable BI heel Ulcers to L outer aguilar. R inner aguilar
[2024-09-02] MEDS: Amiodarone HCL 200 MG TABLET PO (09:24)
[2024-09-02] MEDS: Multivitamin TABLET 1 TAB PO (09:24)
[2024-09-02] MEDS: polyethylene glycoL 3350 17 GM POWD.PACK PO (09:24)
[2024-09-02] MEDS: Ferrous Sulfate 324 MG TABLET.DR PO ×2 (09:24→20:28)
[2024-09-02] MEDS: Docusate Sodium 100 MG CAPSULE PO ×2 (09:24→20:27)
[2024-09-02] MEDS: Finasteride 5 MG TABLET PO (09:24)
[2024-09-02] MEDS: Gabapentin 100 MG CAPSULE PO ×2 (09:24→20:28)
[2024-09-02] MEDS: Thiamine HCL 100 MG TABLET PO (09:24)
[2024-09-02] MEDS: Ascorbic Acid 500 MG TABLET PO ×2 (09:24→20:28)
[2024-09-02] MEDS: Nystatin Powder 15 GM BOTTLE 1 APPL TOPICAL ×2 (09:25→20:53)
[2024-09-02] MEDS: Collagenase Clostridium Hist. 30 GM TUBE 1 APPL TOPICAL (09:25)
[2024-09-02] MEDS: 0.9 % Sodium Chloride Flush 3 ML SYRINGE IVFLUSH ×3 (09:27→20:29)
--- NOTE | 2024-09-02 12:29 | MHC.CLN ---
F/U REGULAR DIET. ENSURE TID PROVIDES 1050 KCALS, 60 G PROTEIN. SUPPLEMENT TO PROMOTE WOUND HEALING. SKIN WITH STAGE IV PRESSURE INJURY TO COCCYX, DTI BILATERAL HEELS, STGE II LEFT HIP. FOLLOW FOR WOUND RN RECOMMENDATIONS. MONITOR PO INTAKE, WEIGHT AND SKIN INTEGRITY.
--- NOTE | 2024-09-02 13:33 | MHC.CM.PN ---
Per MD rounds patient not medically cleared for dc at this time. CM will continue to follow.
--- NOTE | 2024-09-02 13:57 | HO.PM.IMPN ---
Subjective Subjective Date of Service: 09/02/24 Interval History: Being followed for infected sacral ulcer/osteomyelitis Urine culture grew Klebsiella pneumoniae ESBL positive and Proteus mirabilis This a.m. patient noted to have significant anemia, patient denies hematemesis, no melena, denies abdominal pain, no lightheadedness, no dizziness, no acute events overnight. Review of Systems All other system reviewed and are negative. Physical Exam Vital Signs: Vital Signs: Last Vital Signs Temp 97.5 F 09/02/24 11:11 Pulse 80 09/02/24 11:11 Resp 16 09/02/24 11:11 BP 104/55 L 09/02/24 11:11 Pulse Ox 94 09/02/24 11:11 O2 Del Method Room Air 09/02/24 11:11 O2 Flow Rate 2 09/01/24 03:52 BMI result Body Mass Index 28.1 Const: Other: Constitutional : Awake alert in no acute distress Anicteric sclera Neck no JVD Cardiovascular : RRR Respiratory :clear, No respiratory distress Gastrointestinal: G tube in place not in use, soft, non tender Skin : Warm, Dry,pallor Extremities no edema Neurological : No focal deficit Sacral decubitus ulcers see pictures in admission note Objective Data Active Medications Acetaminophen (Acetaminophen 325 Mg Tablet) 650 mg PO Q6H PRN PRN Reason: Pain, Mild 1-3,fever,headache Albuterol Sulfate (Albuterol Sulfate (0.083%) 2.5 Mg/3 Ml Vial.Neb) 2.5 mg INHALE Q4H PRN PRN Reason: Shortness Of Breath Or Wheezing Amiodarone HCl (Amiodarone Hcl 200 Mg Tablet) 200 mg PO DAILY [facility] Last Admin: 09/02/24 09:24 Dose: 200 mg Documented By: STEPHANIE Ascorbic Acid (Ascorbic Acid 500 Mg Tablet) 500 mg PO BID [facility] Last Admin: 09/02/24 09:24 Dose: 500 mg Documented By: STEPHANIE Bisacodyl (Bisacodyl 10 Mg Supp.Rect) 10 mg [place] DAILY PRN PRN Reason: Constipation Calcium Carbonate (Calcium Carbonate 750 Mg Tab.Chew) 750 mg PO Q4H PRN PRN Reason: Heartburn Collagenase (Collagenase Clostridium Hist. 30 Gm Tube) 1 appl TOPICAL DAILY [facility]; Protocol Last Admin: 09/02/24 09:25 Dose: 1 appl Documented By: STEPHANIE Docusate Sodium (Docusate Sodium 100 Mg Capsule) 100 mg PO BID [facility] Last Admin: 09/02/24 09:24 Dose: 100 mg Documented By: STEPHANIE Doxazosin Mesylate (Doxazosin Mesylate 2 Mg Tablet) 4 mg PO BEDTIME [facility]; Protocol Last Admin: 09/01/24 20:57 Dose: 4 mg Documented By: BLANCHE Famotidine (Famotidine 20 Mg Tablet) 20 mg PO BEDTIME [facility] Last Admin: 09/01/24 20:57 Dose: 20 mg Documented By: BLANCHE Ferrous Sulfate (Ferrous Sulfate 324 Mg Tablet.) 324 mg PO BID [facility] Last Admin: 09/02/24 09:24 Dose: 324 mg Documented By: STEPHANIE Finasteride (Finasteride 5 Mg Tablet) 5 mg PO DAILY [facility] Last Admin: 09/02/24 09:24 Dose: 5 mg Documented By: STEPHANIE Gabapentin (Gabapentin 100 Mg Capsule) 100 mg PO BID [facility] Last Admin: 09/02/24 09:24 Dose: 100 mg Documented By: STEPHANIE Levothyroxine Sodium (Levothyroxine Sodium 100 Mcg Tablet) 100 mcg PO DAILY@0600 [facility] Last Admin: 09/02/24 04:46 Dose: 100 mcg Documented By: BLANCHE Magnesium Hydroxide (Milk Of Magnesia 30 Ml Oral.Susp) 30 ml PO DAILY PRN PRN Reason: Constipation Melatonin (Melatonin 3 Mg Tablet) 9 mg PO BEDTIME [facility] Last Admin: 09/01/24 20:56 Dose: 9 mg Documented By: BLANCHE Meropenem (Meropenem 1 Gm Vial) 1 gm IVPUSH Q8H [facility] Last Admin: 09/02/24 13:21 Dose: 1 gm Documented By: STEPHANIE Morphine Sulfate (Morphine Sulfate 2 Mg/Ml Cartridge) 1 mg IVPUSH Q4H PRN; Protocol PRN Reason: Pain, Severe (Pain Scale 7-10) Last Admin: 09/02/24 04:18 Dose: 1 mg Documented By: BLANCHE Multivitamins/Vitamin C (Multivitamin Tablet) 1 tab PO DAILY [facility] Last Admin: 09/02/24 09:24 Dose: 1 tab Documented By: STEPHANIE Nystatin (Nystatin Powder 15 Gm Bottle) 1 appl TOPICAL BID [facility]; Protocol Last Admin: 09/02/24 09:25 Dose: 1 appl Documented By: STEPHANIE Omeprazole (Omeprazole 20 Mg Capsule.Dr) 20 mg PO BID@0630,1630 [facility] Last Admin: 09/02/24 04:50 Dose: 20 mg Documented By: BLANCHE Ondansetron HCl (Ondansetron Hcl 4 Mg/2 Ml Vial) 4 mg IVPUSH Q8H PRN PRN Reason: Nausea and Vomiting Pharmacy Consult (Consult Rx Vancomycin Dosing) 1 each MISCELLANE DAILY PRN PRN Reason: Consult order Polyethylene Glycol (Polyethylene Glycol 3350 17 Gm Powd.Pack) 17 gm PO DAILY [facility] Last Admin: 09/02/24 09:24 Dose: 17 gm Documented By: STEPHANIE Senna (Sennosides 8.6 Mg Tablet) 17.2 mg PO BEDTIME [facility] Last Admin: 09/01/24 20:56 Dose: 17.2 mg Documented By: BLANCHE Sodium Chloride (0.9 % Sodium Chloride Flush 3 Ml Syringe) 3 ml IVFLUSH QSHIFT [facility] Last Admin: 09/02/24 13:21 Dose: 3 ml Documented By: STEPHANIE Thiamine HCl (Thiamine Hcl 100 Mg Tablet) 100 mg PO DAILY [facility] Last Admin: 09/02/24 09:24 Dose: 100 mg Documented By: STEPHANIE Labs 09/02/24 05:17 09/02/24 05:17 Labs: Laboratory Results - last 24 hr 09/02/24 09/02/24 05:17 08:19 MCV 90.2 MCH 27.4 MCHC 30.3 L RDW 17.9 H Plt Count 256 MPV 8.6 L Absolute Nucleated RBC 0.000 Nucleated RBC % (auto) 0.0 Estim Creat Clear Calc 56.4 Estimated GFR 60 Blood Type O Positive Antibody Screen NEGATIVE Crossmatch See Detail Microbiology Microbiology Results: Microbiology 08/29/24 16:24 Urine Culture - Final Urine clean catch - Clean Catch Midstream Klebsiella pneumoniae Proteus mirabilis Assessment and Plan (1) Urinary tract infection: Status: Acute (2) Osteomyelitis: Status: Acute (3) Cellulitis: Status: Acute Plan 84M PMH PAF, HFrEF, HTN, CKD III, GALLITO, GERD, recurent UTI, decubitus ulcers, dementia, from SNF due to hypotension and anemia and noted to have infected decub ulcers. CT abdomen and pelvis findings: Severe cellulitis in the decubitus region with a large soft tissue ulcer and a small focus of osteomyelitis of the sacrum. Bilateral pelviectasis and perinephric fat infiltration, concerning for possible pyelonephritis?correlate with urinalysis Urinalysis showed negative nitrites, positive bacteria, and positive leukocyte esterase Being followed for following medical issues Acute Cellulitis and infected Sacral ulcer with acute osteomylitis Continue IV Meropenen started on 08/29 end DC IV vancomycin with no history of MRSA Normal WBC ,blood cultures negative times 48 hours Seen by ID she recommend IV ertapenem 6 weeks Wound consult pend Seen by General surgery they recommend to continue wet-to-dry dressing b.i.d. surgery will continue to follow patient frequent position change/protein supplements, offloading mattress need PICC line for antibiotic treatment Acute on chronic uti with indwelling desai, Urine culture grew Klebsiella pneumoniae greater than 100,000, ESBL positive only sensitive to ertapenem and gentamicin, and Proteus mirabilis greater than 100,000 pansensitive Continue meropenem as above Blood cultures x2 negative CKD 3 Stable Cr, follow BMP Acute on Ch Anemia,likley of chronic kidney disease, EGD in 09/26/2021 showed GERD/hiatal hernia, history of recent hospitalization requiring blood transfusion, will DC Eliquis transfuse 2 units follow CBC. Paroxysmal atrial fibrillation continue amiodarone and DC eliquis as above place on compression boots hypothyroid cont. synthroid Hypertension soft blood pressure hold Norvasc Urinary retention continue Cardura and finasteride DVT prophylaxis - compression boots need for inpt: IV Abx for infected sacral ulcer with acute osteomylitis and blood transfusion Quality Stroke Does the patient have a stroke diagnosis?: No VTE Prior VTE?: No VTE Risk Level:: Medical - moderate - high VTE Device Contraindication: N/A - Device Ordered VTE Drug Contraindication: N/A - Med Ordered
--- NOTE | 2024-09-02 14:12 | P.CDIM_ITS ---
PROVIDER RESPONSE TEXT: To clarify, the appropriate diagnosis supported by the clinical indicators: Yes, UTI is related to / associated with / due to indwelling Desai catheter QUERY TEXT: PHYSICIAN'S DOCUMENTATION REQUEST Date of Query: 09/02/2024 01:41 PM EST Patient Name: Ramon Atkinson Admit Date: 08/30/2024 Dear Bubba Cortez MD, A review of the medical record indicates additional documentation may be needed. Please review below and update the documentation accordingly. Documentation includes the conditions of Acute on chronic UTI and indwelling desai catheter. Clinical Indicators: positive UA ? colonization IV Vancomycin and IV Meropenen, follow UC Please clarify the relationship between these conditions: Yes, UTI is related to / associated with / due to indwelling Desai catheter No, UTI is not related to / associated with / due to indwelling Desai catheter Other (explain) Clinically unable to determine (explain) Thank you, Chanell Damon RN Use of terms such as suspected, likely, concern for, or probable (associated with a specific diagnosi s that is being evaluated, monitored, or treated as if it exists) are acceptable and can be coded in the inpatient se tting, when documented at the time of discharge. Please use your independent medical judgment in providing your response. THIS QUERY IS PART OF THE PERMANENT MEDICAL RECORD
--- NOTE | 2024-09-02 15:02 | HO.WOUND ---
Wound Consult: Initial 84yr old? male admitted to [facility] [place] [place] on 08/29/24 - See progress notes and H&P for detailed history.? Wound consult placed for sacral wound, bilateral heels and multiple other wounds POA.? Patient agreeable to assessment and photo documentation.? Sacrum Etiology: Stage 4 Pressure injury??Present on Admission Wound Bed: 9cm x 9cm x 3cm with undermining noted from 12 - 3 o'clock max depth of 3cm at 2 o'clock - marbled wound bed with mejia and yellow slough with rough exposed bone Drainage / Odor: mejia sero sang - no odor noted Edges: well defined and unattached Shirley wound: ?MASD with erythema noted to wound edges No Fluctuance or Warmth noted Pain: pain reported Goals of Treatment: Off load pressure wet to moist dressing Daily. Right Malleolus right Heel Right Heel Right Heel Etiology: Unstageable Pressure injury??Present on Admission Wound Bed: purple black moist wound bed Drainage / Odor: serosang Edges: ?unattached and macerated Shirley wound: ? dry flaking thick tissue - No Induration, Fluctuance or Warmth noted Pain: pain reported Goals of Treatment: ?Durafiber AG and dry gauze dressing to keep dry - heels off loaded with pillows since pt refused heel boot protectors Right Ankle - Malleolus Etiology: Unstageable Pressure injury??Present on Admission Wound Bed: black dry scab intact wound bed Drainage / Odor: none Edges: ? well defined Shirley wound: ? dry intact tissue - No Induration, Fluctuance or Warmth noted Pain: pain reported Goals of Treatment: ? off loaded with pillows patient refused heel boot protectors Left Heel Left lateral Ankle leg Left Lateral Foot Left heel Etiology: Deep tissue Injury??Present on Admission Wound Bed: red maroon intact nonblanchable tissue Drainage / Odor: none Edges: ? attached Shirley wound: ? dry tick callused tissue - No Induration, Fluctuance or Warmth noted Pain: pain reported Goals of Treatment: ?foam dressing application off loaded with pillows patient refused heel boot protectors Left Ankle Etiology: Unstageable Pressure Pressure injury??Present on Admission Wound Bed: dark stable black eschar Drainage / Odor: none Edges: ? attached Shirley wound: ? dry intact pink - No Induration, Fluctuance or Warmth noted Pain: reports pain Goals of Treatment: ? foam dressing application off loaded with pillows patient refused heel boot protectors Right Leg Etiology: Unstageable Pressure Pressure injury??Present on Admission Wound Bed: yellow mejia slough noted Drainage / Odor: yellow mejia drainage Edges: ? attached Shirley wound: ? dry intact pink - No Induration, Fluctuance or Warmth noted Pain: reports pain Goals of Treatment: ? Durafiber AG and foam dressing application off loaded with pillows Left lateral upper lower leg over bony prominence below knee with dark purple nonblanchable tissue - foam dressing applied. Many other dry stable scabbed areas noted some over bony prominences. Will consider Agility bed at next assessment. Recommendations: 1. Turn and Reposition every 2 hours and as needed for patient comfort.? Use pillows or wedges to support off loading positions. 2. Off Load all bony prominences with use of pillows and heel boots if needed.? Apply Preventative foams where needed. ? 3. Monitor for incontinence and moisture control, use barrier creams when needed for prevention and treatment. 4. Provide adequate and supplemental nutrition.? 5. Continue low air loss mattress. 6. When applicable maintain blood glucose levels per Providers order. 7. Sacrum - Off Load Pressure with Q2hr turns and use of pillows. Cleanse and irrigate with NS moist gauze. Apply Triad to periwound. Lightly pack wound bed with saline moist gauze roll fill space. Cover with Dry gauze, ABD pad. Change every day. 8. Bilateral Heels and ankles and legs - Elevate heels off of bed surface with pillows. Apply skin prep to heels, Cover right heel with Durafiber AG, Dry gauze, Dry Abd pad and gauze wrap. Change every other day. Re-consult wound care Nurse for wound deterioration or wound changes.
[2024-09-02 17:04] LABS: MRSA Nasal PCR POSITIVE (Negative); SA Nasal PCR POSITIVE (Negative)
[2024-09-02] MEDS: Sennosides 8.6 MG TABLET 17.2 MG PO (20:28)
[2024-09-02] MEDS: Melatonin 3 MG TABLET 9 MG PO (20:28)
[2024-09-02] MEDS: Famotidine 20 MG TABLET PO (20:28)
[2024-09-02] MEDS: Doxazosin Mesylate 2 MG TABLET 4 MG PO (20:28)
[2024-09-03] MEDS: Morphine Sulfate 2 MG/ML CARTRIDGE 1 MG IVPUSH ×3 (02:17→12:39)
[2024-09-03 03:19] VITALS: BP 100/51; PULSE 79; RESP 18; TEMP 36.7; O2SAT 94
[2024-09-03] MEDS: Omeprazole 20 MG CAPSULE.DR PO ×2 (05:45→16:00)
[2024-09-03] MEDS: Meropenem 1 GM VIAL IVPUSH ×2 (05:45→12:38)
[2024-09-03] MEDS: Levothyroxine Sodium 100 MCG TABLET PO (05:45)
[2024-09-03 06:49] VITALS: BP 110/58; PULSE 80; RESP 17; TEMP 36.6; O2SAT 94
[2024-09-03 06:51] LABS: Hematocrit 27.4 % (42.0-52.0); Hemoglobin 8.6 g/dl (14.0-18.0); Mean Corpuscular HGB Conc 31.4 g/dl (31.0-36.0); Mean Corpuscular Volume 89.3 fL (80.0-98.0); Mean Platelet Volume 8.8 fL (9.4-12.4); NRBC Pct Auto 0.3 /100WBC (0.0-0.2); Platelet Count 270 X10*3/uL (160-400); Red Blood Count 3.07 X10*6/uL (4.60-5.80); White Blood Count 6.7 X10*3/uL (4.8-10.8)
[2024-09-03 07:06] LABS: Anion Gap 11 (12-20); Blood Urea Nitrogen 26 mg/dL (9-16); Calcium 8.1 mg/dL (8.4-10.2); Carbon Dioxide 26 mmol/L (22-29); Chloride 110 mmol/L (96-108); Creatinine Clr Calc Pharmacy 57.8; Estimated Glomerular Filt Rate > 60; Glucose Random 90 mg/dL (60-115); Potassium 4.3 mmol/L (3.3-5.1); Sodium 143 mmol/L (135-145)
--- NOTE | 2024-09-03 08:08 | P.PNGS_ITS ---
Subjective Subjective Date of Service: 09/03/24 Interval history: Patient reports burning pain in the back. Physical Exam 2 Vital Signs: Vital Signs: Last Vital Signs Temp 97.9 F 09/03/24 06:49 Pulse 80 09/03/24 06:49 Resp 17 09/03/24 06:49 BP 110/58 L 09/03/24 06:49 Pulse Ox 94 09/03/24 06:49 O2 Del Method Room Air 09/03/24 06:49 O2 Flow Rate 2 09/01/24 03:52 BMI result Body Mass Index 28.1 Const: General: no acute distress Orientation/consciousness: patient oriented x3 Back/Spine/Pelvis: Other: sacral wounds examined, extensive skin excoriation due to moisture in the surround skin. Ulcer base with exposed bone, some granulation, no necrotic tissue appreciated. No foul odor. Neuro: General: patient oriented x3 Objective Data Active Medications Acetaminophen (Acetaminophen 325 Mg Tablet) 650 mg PO Q6H PRN PRN Reason: Pain, Mild 1-3,fever,headache Albuterol Sulfate (Albuterol Sulfate (0.083%) 2.5 Mg/3 Ml Vial.Neb) 2.5 mg INHALE Q4H PRN PRN Reason: Shortness Of Breath Or Wheezing Amiodarone HCl (Amiodarone Hcl 200 Mg Tablet) 200 mg PO DAILY [facility] Last Admin: 09/02/24 09:24 Dose: 200 mg Documented By: STEPHANIE Ascorbic Acid (Ascorbic Acid 500 Mg Tablet) 500 mg PO BID [facility] Last Admin: 09/02/24 20:28 Dose: 500 mg Documented By: MARIA ELENA Bisacodyl (Bisacodyl 10 Mg Supp.Rect) 10 mg IN DAILY PRN PRN Reason: Constipation Calcium Carbonate (Calcium Carbonate 750 Mg Tab.Chew) 750 mg PO Q4H PRN PRN Reason: Heartburn Collagenase (Collagenase Clostridium Hist. 30 Gm Tube) 1 appl TOPICAL DAILY [facility]; Protocol Last Admin: 09/02/24 09:25 Dose: 1 appl Documented By: STEPHANIE Docusate Sodium (Docusate Sodium 100 Mg Capsule) 100 mg PO BID [facility] Last Admin: 09/02/24 20:27 Dose: 100 mg Documented By: MARIA ELENA Doxazosin Mesylate (Doxazosin Mesylate 2 Mg Tablet) 4 mg PO BEDTIME [facility]; Protocol Last Admin: 09/02/24 20:28 Dose: 4 mg Documented By: MARIA ELENA Famotidine (Famotidine 20 Mg Tablet) 20 mg PO BEDTIME [facility] Last Admin: 09/02/24 20:28 Dose: 20 mg Documented By: MARIA ELENA Ferrous Sulfate (Ferrous Sulfate 324 Mg Tablet.) 324 mg PO BID [facility] Last Admin: 09/02/24 20:28 Dose: 324 mg Documented By: MARIA ELENA Finasteride (Finasteride 5 Mg Tablet) 5 mg PO DAILY [facility] Last Admin: 09/02/24 09:24 Dose: 5 mg Documented By: STEPHANIE Gabapentin (Gabapentin 100 Mg Capsule) 100 mg PO BID [facility] Last Admin: 09/02/24 20:28 Dose: 100 mg Documented By: MARIA ELENA Levothyroxine Sodium (Levothyroxine Sodium 100 Mcg Tablet) 100 mcg PO DAILY@0600 [facility] Last Admin: 09/03/24 05:45 Dose: 100 mcg Documented By: MARIA ELENA Magnesium Hydroxide (Milk Of Magnesia 30 Ml Oral.Susp) 30 ml PO DAILY PRN PRN Reason: Constipation Melatonin (Melatonin 3 Mg Tablet) 9 mg PO BEDTIME [facility] Last Admin: 09/02/24 20:28 Dose: 9 mg Documented By: MARIA ELENA Meropenem (Meropenem 1 Gm Vial) 1 gm IVPUSH Q8H [facility] Last Admin: 09/03/24 05:45 Dose: 1 gm Documented By: MARIA ELENA Morphine Sulfate (Morphine Sulfate 2 Mg/Ml Cartridge) 1 mg IVPUSH Q4H PRN; Protocol PRN Reason: Pain, Severe (Pain Scale 7-10) Last Admin: 09/03/24 02:17 Dose: 1 mg Documented By: MARIA ELENA Multivitamins/Vitamin C (Multivitamin Tablet) 1 tab PO DAILY [facility] Last Admin: 09/02/24 09:24 Dose: 1 tab Documented By: STEPHANIE Nystatin (Nystatin Powder 15 Gm Bottle) 1 appl TOPICAL BID [facility]; Protocol Last Admin: 09/02/24 20:53 Dose: 1 appl Documented By: MARIA ELENA Omeprazole (Omeprazole 20 Mg Capsule.) 20 mg PO BID@0630,1630 [facility] Last Admin: 09/03/24 05:45 Dose: 20 mg Documented By: MARIA ELENA Ondansetron HCl (Ondansetron Hcl 4 Mg/2 Ml Vial) 4 mg IVPUSH Q8H PRN PRN Reason: Nausea and Vomiting Polyethylene Glycol (Polyethylene Glycol 3350 17 Gm Powd.Pack) 17 gm PO DAILY [facility] Last Admin: 09/02/24 09:24 Dose: 17 gm Documented By: STEPHANIE Senna (Sennosides 8.6 Mg Tablet) 17.2 mg PO BEDTIME [facility] Last Admin: 09/02/24 20:28 Dose: 17.2 mg Documented By: MARIA ELENA Sodium Chloride (0.9 % Sodium Chloride Flush 3 Ml Syringe) 3 ml IVFLUSH QSHIFT [facility] Last Admin: 09/02/24 20:29 Dose: 3 ml Documented By: MARIA ELENA Thiamine HCl (Thiamine Hcl 100 Mg Tablet) 100 mg PO DAILY [facility] Last Admin: 09/02/24 09:24 Dose: 100 mg Documented By: STEPHANIE Labs 09/03/24 05:59 09/03/24 05:59 Labs: Laboratory Results - last 24 hr 09/02/24 09/02/24 09/03/24 08:19 15:43 05:59 MCV 89.3 MCH 28.0 MCHC 31.4 RDW 17.0 H Plt Count 270 MPV 8.8 L Absolute Nucleated RBC 0.020 H Nucleated RBC % (auto) 0.3 H Anion Gap 11 L Estim Creat Clear Calc 57.8 Estimated GFR > 60 Random Glucose 90 Calcium 8.1 L Nasal Screen MRSA (PCR) POSITIVE A Nasal S. aureus Screen POSITIVE A Nasal MRSA/S.aureus Interp SEE NOTE Blood Type O Positive Antibody Screen NEGATIVE Crossmatch See Detail Procedures Date of Service Date of Service: 09/03/24 Progress Note: A&P Assessment and plan (1) Decubitus ulcer of sacral region, stage 4: Status: Acute Plan Wounds examined, no new necrotic tissue noted; surrounding skin excoriation. Wound vac would probably not be able to obtain good seal because of the surrounding excoriation. Continue local wound care. No surgical debridement required at this time. Time Spent With Patient Time: Total time managing care of this patient today ____ minutes. Quality Stroke Does the patient have a stroke diagnosis?: No VTE Prior VTE?: No VTE Risk Level:: Medical - moderate - high VTE Device Contraindication: N/A - Device Ordered VTE Drug Contraindication: N/A - Med Ordered
[2024-09-03] MEDS: Docusate Sodium 100 MG CAPSULE PO (08:44)
[2024-09-03] MEDS: Thiamine HCL 100 MG TABLET PO (08:44)
[2024-09-03] MEDS: 0.9 % Sodium Chloride Flush 3 ML SYRINGE IVFLUSH ×2 (08:44→16:01)
[2024-09-03] MEDS: Ferrous Sulfate 324 MG TABLET.DR PO (08:44)
[2024-09-03] MEDS: Ascorbic Acid 500 MG TABLET PO (08:44)
[2024-09-03] MEDS: Multivitamin TABLET 1 TAB PO (08:44)
[2024-09-03] MEDS: Gabapentin 100 MG CAPSULE PO (08:44)
[2024-09-03] MEDS: polyethylene glycoL 3350 17 GM POWD.PACK PO (08:44)
[2024-09-03] MEDS: Amiodarone HCL 200 MG TABLET PO (08:44)
[2024-09-03] MEDS: Finasteride 5 MG TABLET PO (08:44)
[2024-09-03] MEDS: Collagenase Clostridium Hist. 30 GM TUBE 1 APPL TOPICAL (08:48)
[2024-09-03] MEDS: Nystatin Powder 15 GM BOTTLE 1 APPL TOPICAL (08:49)
[2024-09-03 11:24] VITALS: BP 111/54; PULSE 78; RESP 16; TEMP 36.6; O2SAT 95
--- NOTE | 2024-09-03 12:14 | P.DS_ITS ---
DS: Providers Provider Date of Service: 09/03/24 Date of admission: 08/29/24 20:25 Date of discharge: 09/03/24 Primary care physician: MARKO Trivedi Consults: 08/29/24 16:16 Consult to Infectious Diseases Routine Consulting Provider: [facility] Reason for consultation: ESBL, hx of sepsis 08/29/24 19:43 Consult to Wound Care Routine Reason for consultation: Multiple pressure ulcers 08/29/24 20:28 Consult to General Surgery Routine Consulting Provider: [facility] Reason for consultation: sacral ulcer ? need debridment 08/30/24 23:33 Consult to Wound Care Routine Reason for consultation: multiple areas of pressure ulcer DS: Diagnosis Discharge Diagnosis (1) Decubitus ulcer of sacral region, stage 4: Status: Acute DS: Summary Hospital Course Hospital Course: History of presenting illness: Date of Service: 08/29/24 Chief Complaint: low hemoglobin 84-year-old male with a past medical history of PAF, HFrEF, HTN, CKD III, GALLITO, and GERD, with prior hospitalizations for UTIs due to multidrug-resistant organisms. He was last admitted to our hospital from August 11 to for UTI treatment. The patient was sent from [facility] today for evaluation of low blood count. In the emergency room, his hemoglobin was low but within his baseline. He was also noted to have hypotension (81/32), which improved with IV fluids. His current blood pressure is 103/52. Urinalysis showed negative nitrites, positive bacteria, and positive leukocyte esterase, but he has no urinary symptoms. CT abdomen and pelvis showed Severe cellulitis in the decubitus region with a large soft tissue ulcer and a small focus of osteomyelitis of the sacrum ,Bilateral pelviectasis and perinephric fat infiltration, concerning for possi ble pyelonephritis?correlate with urinalysis. In Emergency department treatment: Vancomycin and Zosyn. Hospital course: Admitted to [facility] with Acute Cellulitis and infected Sacral ulcer with acute osteomylitis, treated with IV Meropenen and DC IV vancomycin , have normal WBC ,blood cultures negative times 48 hours Seen by ID she recommend IV ertapenem and IV vancomycin for 6 weeks , if sacral wound culture negative for MRSA then vancomycin can be discontinued as per ID,Seen by General surgery they recommend to continue wet-to-dry dressing surgery will continue to follow patient, continue frequent position change/protein supplements, offloading mattress, PICC line placed for antibiotic treatment end date of antibiotic October 10 Acute on chronic uti due to indwelling desai, Urine culture grew Klebsiella pneumoniae greater than 100,000, ESBL positive only sensitive to ertapenem and gentamicin, and Proteus mirabilis greater than 100,000 pansensitive Continue meropenem as above, Blood cultures x2 negative. CKD 3 Stable Acute on Ch Anemia,likley of chronic kidney disease, EGD in 09/26/2021 showed GERD/hiatal hernia, history of recent hospitalization requiring blood tra nsfusion, due to recurrent anemia requiring blood transfusion will DC Eliquis , status post 2 units of packed RBC hematocrit improved recommend to follow CBC periodically. It was discussed during previous hospitalization as well to discontinue Eliquis indefinitely if noted to have recurrent anemia. Paroxysmal atrial fibrillation continue amiodarone and DC eliquis as above . hypothyroid cont. synthroid Hypertension due to soft blood pressure will discontinue Norvasc Urinary retention continue Cardura and finasteride Stage IV pressure injury to sacrum goal of treatment offload pressure wet to moist dressing daily. Right heel unstageable pressure injury present on admission, goal of treatment dura fiber Ag and dry gauze dressing to keep dry, heels offloaded with pillows since patient declines heel boot protectors. Right ankle malleolus unstageable pressure injury present on admission, offload with pillows Left heel deep tissue injury present on admission, foam dressing application, offloaded with pillows Left ankle unstageable pressure injury present on admission goal of treatment foam dressing, off load with pillows Right leg, unstageable pressure injury, apply dura fiber Ag and foam dressing application, offload with pillows Many other dry side table scabbed areas noted over bony prominences: 1. Turn and Reposition every 2 hours and as needed for patient comfort.? Use pillows or wedges to support off loading positions. 2. Off Load all bony prominences with use of pillows and heel boots if needed.? Apply Preventative foams where needed. ? 3. Monitor for incontinence and moisture control, use barrier creams when needed for prevention and treatment. 4. Provide adequate and supplemental nutrition.? 5. Continue low air loss mattress. 6. When applicable maintain blood glucose levels per Providers order. 7. Sacrum - Off Load Pressure with Q2hr turns and use of pillows. Cleanse and irrigate with NS moist gauze. Apply Triad to periwound. Lightly pack wound bed with saline moist gauze roll fill space. Cover with Dry gauze, ABD pad. Change every day. 8. Bilateral Heels and ankles and legs - Elevate heels off of bed surface with pillows. Apply skin prep to heels, Cover right heel with Durafiber AG, Dry gauze, Dry Abd pad and gauze wrap. Change every other day. Time Attestation Discharge Coordination Time (in mins): 40 Quality: Safe Use of Opioids Does Pt have an Active Cancer Diagnosis on the Problem List?: No Quality: Stroke Does the patient have a stroke diagnosis?: No Physical Exam Vital Signs: Vital Signs: Last Vital Signs Temp 98 F 09/03/24 11:24 Pulse 78 09/03/24 11:24 Resp 16 09/03/24 11:24 BP 111/54 L 09/03/24 11:24 Pulse Ox 95 09/03/24 11:24 O2 Del Method Room Air 09/03/24 11:24 O2 Flow Rate 2 09/01/24 03:52 BMI result Body Mass Index 28.1 Const: Other: Constitutional : Awake alert in no acute distress Anicteric sclera Neck no JVD Cardiovascular : RRR Respiratory :clear, No respiratory distress Gastrointestinal: G tube in place not in use, soft, non tender Skin : Warm, Dry,pallor, multiple pressure wounds lower extremities Extremities no edema Neurological : No focal deficit Sacral decubitus ulcer DS: Data Data Completed and Pending Completed studies during hospitalization [Text1]: Procedures Assistance with Respiratory Ventilation, Less than 24 Consecutive Hours, Continuous Positive Airway Pressure (07/07/22) Bypass Trachea to Cutaneous with Tracheostomy Device, Open Approach (02/09/24) Dilation of Left Ureter with Intraluminal Device, Via Natural or Artificial Opening Endoscopic (07/07/22) Drainage of Left Main Bronchus, Via Natural or Artificial Opening Endoscopic (02/09/24) Drainage of Right Main Bronchus, Via Natural or Artificial Opening Endoscopic (02/09/24) Extraction of Left Hip Muscle, Open Approach (08/11/24) Extraction of Right Hip Muscle, Open Approach (08/11/24) Fluoroscopy of Left Kidney, Ureter and Bladder using Low Osmolar Contrast (07/07/22) Insertion of Endotracheal Airway into Trachea, Via Natural or Artificial Opening (02/09/24) Insertion of Feeding Device into Stomach, Percutaneous Approach (02/09/24) Insertion of Infusion Device into Right Atrium, Percutaneous Approach (02/09/24) Insertion of Infusion Device into Right Cephalic Vein, Percutaneous Approach (06/26/24) Insertion of Infusion Device into Upper Vein, Percutaneous Approach (02/09/24) Removal of Infusion Device from Upper Vein, External Approach (02/09/24) Repair Neck, Stoma, External Approach (02/09/24) Respiratory Ventilation, 24-96 Consecutive Hours (02/09/24) Respiratory Ventilation, Greater than 96 Consecutive Hours (02/09/24) Anglican of Cardiac Rhythm, Single (07/07/22) Transfusion of Nonautologous Red Blood Cells into Peripheral Vein, Percutaneous Approach (08/11/24) Ultrasonography of Superior Vena Cava, Guidance (02/09/24) Labs on day of discharge: Laboratory Results - last 24 hr 09/02/24 09/02/24 09/03/24 08:19 15:43 05:59 WBC 6.7 RBC 3.07 L D Hgb 8.6 L D Hct 27.4 L D MCV 89.3 MCH 28.0 MCHC 31.4 RDW 17.0 H Plt Count 270 MPV 8.8 L Absolute Nucleated RBC 0.020 H Nucleated RBC % (auto) 0.3 H Sodium 143 Potassium 4.3 Chloride 110 H Carbon Dioxide 26 Anion Gap 11 L BUN 26 H Creatinine 1.13 Estim Creat Clear Calc 57.8 Estimated GFR > 60 Random Glucose 90 Calcium 8.1 L Nasal Screen MRSA (PCR) POSITIVE A Nasal S. aureus Screen POSITIVE A Nasal MRSA/S.aureus Interp SEE NOTE Blood Type O Positive Antibody Screen NEGATIVE Crossmatch See Detail Preliminary micro results at discharge 08/29/24 16:02 Blood Culture - Preliminary Blood - Venous No growth after 48 hours. 08/29/24 15:39 Blood Culture - Preliminary Blood - Venous No growth after 48 hours. Discharge Plan Discharge Anticipated Discharge Date/Time: 09/03/24 12:10 Patient Disposition: er [facility] Discharge Diagnosis: Acute cellulitis and Infected sacral ulcer with acute osteomyelitis Acute and chronic UTI due to indwelling Desai catheter Acute on chronic anemia Referrals: [facility] [Outside] - 1 Week (RETURN FOR SHORT TERM REHAB) Natanael Rodney PA [Primary Care Provider] - 1 Week Discharge Medications: Continued polyethylene glycol 3350 17 gram Powder In Packet 17 g PO DAILY Qty: 30 0RF Rx Instructions: Hold for loose stool. sennosides [senna] 8.6 mg Tablet 17.2 mg PO BEDTIME albuterol sulfate 2.5 mg /3 mL (0.083 %) Solution For Nebulization 2.5 mg INHALATION Q4H PRN (Reason: Shortness Of Breath Or Wheezing) polyvinyl alcohol 1.4 % Drops 1 drp OPHTHALMIC (EYE) Q6H PRN (Reason: Dry Eyes) thiamine HCl (vitamin B1) [Vitamin B-1] 100 mg Tablet 100 mg PO DAILY levothyroxine 100 mcg Tablet 100 mcg PO DAILY@0600 famotidine 20 mg Tablet 20 mg PO BEDTIME magnesium hydroxide [Milk of Magnesia] 400 mg/5 mL Suspension 30 ml PO Q72H PRN (Reason: Constipation) Rx Instructions: If no BM in 3 days. ascorbic acid (vitamin C) 500 mg Tablet 500 mg PO BID bisacodyl 10 mg Suppository 10 mg NH DAILY PRN (Reason: Constipation) Rx Instructions: If MoM not effective. ferrous sulfate 325 mg (65 mg iron) Tablet 325 mg PO BID gabapentin 100 mg Capsule 100 mg PO BID docusate sodium 100 mg Tablet 100 mg PO BID acetaminophen 325 mg tablet 975 mg PO Q6H PRN (Reason: Pain/Fever) amiodarone 200 mg tablet 200 mg PO DAILY nystatin 100,000 unit/gram Powder 1 appl TOPICAL BID Rx Instructions: Apply to Groin. omeprazole 20 mg Capsule,Delayed Release(Dr/Ec) 20 mg PO BID@0630,1630 Qty: 0 0RF finasteride 5 mg Tablet 5 mg PO DAILY Qty: 0 0RF doxazosin 2 mg Tablet 4 mg PO BEDTIME Qty: 0 0RF Protocol: Hold for SBP< HOLD for SBP < : 90 melatonin 5 mg tablet 10 mg PO BEDTIME zinc acetate 50 mg (zinc) Capsule 50 mg PO DAILY Rx Instructions: 08/10/24 - 08/24/24 ondansetron HCl 4 mg Tablet 4 mg PO Q8H PRN (Reason: Nausea And Vomiting) Fleet Enema 19-7 gram/118 mL Enema 118 ml NH DAILY PRN (Reason: Constipation) Santyl 250 unit/gram Ointment 1 appl TOPICAL DAILY Rx Instructions: apply to sacrum multivitamin with minerals Tablet 1 tab PO DAILY Cold and Hot (menthol) 5 % Adhesive Patch,Medicated 1 patch TOPICAL DAILY Rx Instructions: apply to left knee Lactobacillus acidoph-L.bulgar 1 million cell Tablet 1 tab PO BID tramadol 50 mg Tablet 50 mg PO Q8H PRN (Reason: Pain) sodium hypochlorite 0.25 % Solution 1 appl TOPICAL DAILY Discontinued amlodipine 10 mg Tablet 10 mg PO DAILY Eliquis 2.5 mg Tablet 2.5 mg PO BID Discharge Orders: Discharge Order (Routine); Ordered 09/03/24 Ordered By: Bubba Cortez Diet: Advance to usual diet Activity on Discharge: As tolerated Stand Alone Forms: Patient Portal Discharge page Print Language: Uzbek Care Plan Goals: Take IV vancomycin 750 mg Q 24 hours and IV ertapenem 1gm daily for 6 weeks end date October 10/follow-up with Infectious Disease Dr. Shanta Ann to adjust antibiotic as needed Monitor vanco trough, check BMP,liver panel q weekly Soft blood pressure discontinue Norvasc Recurrent anemia discontinue Eliquis Stage IV pressure injury to sacrum goal of treatment offload pressure wet to moist dressing daily. Right heel unstageable pressure injury present on admission, goal of treatment dura fiber Ag and dry gauze dressing to keep dry, heels offloaded with pillows since patient declines heel boot protectors. Right ankle malleolus unstageable pressure injury present on admission, offload with pillows Left heel deep tissue injury present on admission, foam dressing application, offloaded with pillows Left ankle unstageable pressure injury present on admission goal of treatment foam dressing, off load with pillows Right leg, unstageable pressure injury, apply dura fiber Ag and foam dressing application, offload with pillows Many other dry side table scabbed areas noted over bony prominences: 1. Turn and Reposition every 2 hours and as needed for patient comfort.? Use pillows or wedges to support off loading positions. 2. Off Load all bony prominences with use of pillows and heel boots if needed.? Apply Preventative foams where needed. ? 3. Monitor for incontinence and moisture control, use barrier creams when needed for prevention and treatment. 4. Provide adequate and supplemental nutrition.? 5. Continue low air loss mattress. 6. When applicable maintain blood glucose levels per Providers order. 7. Sacrum - Off Load Pressure with Q2hr turns and use of pillows. Cleanse and irrigate with NS moist gauze. Apply Triad to periwound. Lightly pack wound bed with saline moist gauze roll fill space. Cover with Dry gauze, ABD pad. Change every day. 8. Bilateral Heels and ankles and legs - Elevate heels off of bed surface with pillows. Apply skin prep to heels, Cover right heel with Durafiber AG, Dry gauze, Dry Abd pad and gauze wrap. Change every other day. Health Concerns: Chronic kidney disease stable Plan of Treatment: Outpatient follow-up with Dr. Shanta Ann in 1-2 weeks to obtain results of sacral Gram stain culture sensitivity to adjust antibiotics Outpatient follow-up with primary care physician Assessment: As above
--- NOTE | 2024-09-03 14:40 | MHC.CM.PN ---
Addendum entered by Mary Orellana 09/03/24 15:24: DAUGHTER/HCP MICHELLE UPDATED ON TRANSFER Original Note: DP: PT HAS BEEN MEDICALLY CLEARED FOR DC BACK TO STR AT [facility] . BLS TRANSPORT SCHEDULED FOR 5:30 PM VIA RL. RN/MD AWARE. FINAL IMM DELIVERED.
--- NOTE | 2024-09-03 15:34 | P.PICC_ITS ---
PICC Line Insertion NPICC Diagnosis: UTI Indication: Nursing Home antibiotics Pertinent Labs: reviewed Technique: Following informed consent including risks, benefits and alternatives and using sterile technique including cap and mask, sterile gown, glove and drape, the right arm was prepped and draped in the usual sterile fashion of full barrier technique with CHG. Following completion of Santo Protocol the skin and soft tissues were anesthetized with 1% Lidocaine plain. Using ultrasound guidance, right basilic vein access was obtained twice by Kristen Ocampo RN, but unable to pass guidewire. Right basilic vein access was obtained on first attempt by Erik Seaman RN. Over an 0.018 wire through peel-away sheath, a 4FR single lumen PASV PICC line was positioned. Catheter length is 41 CM internal length, at the 0 CM external yady, for a total trimmed length of 41 CM. The procedure was performed in S272. Tip verification was performed by Edgar Brenner with Sherlock 3CG. Tip located in SVC. Ultrasound was used to document vein patency and for needle entry. A formal ultrasound picture and cardiac rhythm strip was recorded. Vascular Nuclear Design Engineer has released the line for use and it is currently dressed with a StatLock, Tegaderm, and CHG disc. Verification has been performed for blood return and line patency. Arm Circumference: 30 CM Equipment: LoggedIn PowerPICC SOLO Catheter Type: 4FR single lumen PASV PICC Lot #: [id number]
[2024-09-03 15:36] VITALS: BP 103/55; PULSE 76; RESP 18; TEMP 36.6; O2SAT 95
[2024-09-03] MEDS: vancomycin HCL 750 MG in 0.9 % Sodium Chloride 250 ML 270 MG IV (15:55)
[2024-09-03] MEDS: Ertapenem Sodium 1 GM VIAL IVPUSH (15:55)
[2024-09-03 17:27] VITALS: BP 98/44; PULSE 78; RESP 18; TEMP 36.9; O2SAT 94
[2024-09-03 17:36] VITALS: BP 117/58
== END 2024-09-03 17:55 | disposition skilled nursing facility (03) | DRG 539 ==
LOC: HO.ED 19:08 → HO.EDOVER 20:38 → HO.S3 08-30 12:09
PROVIDERS: Physician Assistant Medical; Admitting Provider Internal Medicine; Emergency Provider Internal Medicine; PCP Physician Assistant Medical; Visit Provider Hospitalist
DX: M46.28 Osteomyelitis of vertebra, sacral and sacrococcygeal region (principal); L89.154 Pressure ulcer of sacral region, stage 4; T83.511A Infection and inflammatory reaction due to indwelling urethral catheter, initial encounter; I13.0 Hypertensive heart and chronic kidney disease with heart failure and stage 1 through stage 4 chronic kidney disease, or unspecified chronic kidney disease; I50.22 Chronic systolic (congestive) heart failure; L03.312 Cellulitis of back [any part except buttock and flank]; Z16.12 Extended spectrum beta lactamase (ESBL) resistance; N10 Acute pyelonephritis; I25.10 Atherosclerotic heart disease of native coronary artery without angina pectoris; E03.9 Hypothyroidism, unspecified; I48.0 Paroxysmal atrial fibrillation; B96.1 Klebsiella pneumoniae [K. pneumoniae] as the cause of diseases classified elsewhere; B96.4 Proteus (mirabilis) (morganii) as the cause of diseases classified elsewhere; I95.9 Hypotension, unspecified; N40.1 Benign prostatic hyperplasia with lower urinary tract symptoms; R33.8 Other retention of urine; N18.30 Chronic kidney disease, stage 3 unspecified; D63.1 Anemia in chronic kidney disease; L89.520 Pressure ulcer of left ankle, unstageable; L89.510 Pressure ulcer of right ankle, unstageable; L89.620 Pressure ulcer of left heel, unstageable; L89.610 Pressure ulcer of right heel, unstageable; Z20.822 Contact with and (suspected) exposure to COVID-19; Z79.01 Long term (current) use of anticoagulants; Z87.440 Personal history of urinary (tract) infections; Z79.890 Hormone replacement therapy; Z79.899 Other long term (current) drug therapy
CPT/HCPCS: 0241U; 36415; 36573; 71045; 74176; 80048; 80053; 80076; 80202; 81001; 82565; 83605; 83735; 83880; 84484; 85025; 85027; 85610; 85730; 86850; 86900; 86901; 86923; 87040; 87070; 87077; 87086; 87088; 87186; 87205; 87640; 87641; 93005; 99285; C1751; J0131; J1335; J2185; J2270; J2543; J3370; J3371; P9016

== ENCOUNTER → 2024-08-29 15:25 | Outpatient (BNV) | payer MEDICARE, SELFPAY | PROVIDERS: Admitting Provider Internal Medicine; Emergency Provider Internal Medicine; PCP Physician Assistant Medical; Visit Provider Internal Medicine | DX: I44.0 Atrioventricular block, first degree (principal); I25.2 Old myocardial infarction | CPT/HCPCS: 93010 ==

== ENCOUNTER → 2024-08-29 16:21 | Outpatient (BNV) | payer MEDICARE, SELFPAY | PROVIDERS: Emergency Provider Internal Medicine; PCP Physician Assistant Medical; Visit Provider Radiology Diagnostic Radiology | DX: L89.90 Pressure ulcer of unspecified site, unspecified stage (principal); R53.1 Weakness | CPT/HCPCS: 71045; 74176 ==

== ENCOUNTER → 2024-08-29 20:25 | Outpatient (BNV) | payer MEDICARE, SELFPAY | PROVIDERS: Admitting Provider Internal Medicine; Emergency Provider Internal Medicine; PCP Physician Assistant Medical; Visit Provider Internal Medicine | DX: M86.9 Osteomyelitis, unspecified (principal); N39.0 Urinary tract infection, site not specified; L03.90 Cellulitis, unspecified | CPT/HCPCS: 99222 ==

== ENCOUNTER → 2024-08-29 20:25 | Outpatient (BNV) | payer MEDICARE, SELFPAY | PROVIDERS: Admitting Provider Internal Medicine; Emergency Provider Internal Medicine; PCP Physician Assistant Medical; Visit Provider Hospitalist | DX: N39.0 Urinary tract infection, site not specified (principal); M86.9 Osteomyelitis, unspecified; L03.90 Cellulitis, unspecified; D64.9 Anemia, unspecified | CPT/HCPCS: 99232; 99233; 99239 ==

== ENCOUNTER → 2024-08-29 20:25 | Outpatient (BNV) | payer MEDICARE, SELFPAY | PROVIDERS: Admitting Provider Internal Medicine; Emergency Provider Internal Medicine; PCP Physician Assistant Medical; Visit Provider Surgery | DX: L89.154 Pressure ulcer of sacral region, stage 4 (principal) | CPT/HCPCS: 99222 ==

== ENCOUNTER 2024-10-03 13:18 | Observation (INO) | payer MEDICARE, SELFPAY ==
[2024-10-03] VITALS (9 sets, daily range): BP systolic 91–135; BP diastolic 47–65; PULSE 61–89; RESP 14–20; TEMP 36.5–36.6; O2SAT 97–100; BMI 27.4
--- NOTE | ~2024-10-03 | XR_ITS ---
CLINICAL HISTORY: pain 2 view left tibia-fibula Comparison: None Findings No fractures or dislocations. No joint effusion. Severe degenerative changes of the knee with joint space narrowing and osteophytes. Possible loose body IMPRESSION: No acute findings. Severe degenerative changes of the knee with possible loose body. This document has been electronically signed by: Ede Denise MD on 10/03/2024 17:52:30
[2024-10-03 15:07] LABS: MANUAL DIFF FLAG NO
[2024-10-03 15:08] LABS: Basophils Percent Auto 0.4 % (0-2); Eosinophils Absolute Auto 0.3 X10*3/uL (0.0-0.4); Hematocrit 21.7 % (42.0-52.0); Imm Gran Abs Auto 0.05 X10*3/uL (0.00-0.03); Imm Gran Pct Auto 0.5 % (0.0-0.4); Lymphocytes Absolute Auto 1.3 X10*3/uL (1.2-4.9); Lymphocytes Percent Auto 13.8 % (20-40); Mean Corpuscular HGB Conc 30.9 g/dl (31.0-36.0); Mean Corpuscular Hemoglobin 27.3 pg (27.0-33.0); Mean Corpuscular Volume 88.6 fL (80.0-98.0); Mean Platelet Volume 8.4 fL (9.4-12.4); Monocytes Absolute Auto 0.9 X10*3/uL (0.1-1.2); Monocytes Percent Auto 9.8 % (2-11); Neutrophils Absolute Auto 6.8 x10*3/uL (2.0-8.3); Neutrophils Percent Auto 72.5 % (45-73); Platelet Count 245 X10*3/uL (160-400); Red Blood Count 2.45 X10*6/uL (4.60-5.80); White Blood Count 9.3 X10*3/uL (4.8-10.8)
--- NOTE | 2024-10-03 15:15 | PC.NURSE ---
pt is alert and oriented, skin slightly clammy to touch, pt coming [facility] for low h+h 6.6 pt denies noticing any blood in stool, vomiting or bloody noses, pt has a g-tube in place, desai cath, pt has chronic large wound on the coccyx with pictures in the pt's file, pt also has chronic wounds to the lower extremities, right heel is necrotic, and pt is reporting pain to the second left toe because of the long toe nail, and left leg pain and right ankle pain. vs stable
[2024-10-03 15:26] LABS: Hemoglobin 6.7 g/dl (14.0-18.0)
[2024-10-03 15:55] LABS: Alanine Aminotransferase 37 U/L (0-40); Albumin Level 2.1 g/dL (3.5-5.0); Anion Gap 10 (12-20); Aspartate Amino Transferase 67 U/L (5-37); Bilirubin Direct < 0.2 mg/dL (0.0-0.5); Bilirubin Total 0.2 mg/dL (0.0-1.0); Blood Urea Nitrogen 39 mg/dL (9-16); Calcium 8.5 mg/dL (8.4-10.2); Carbon Dioxide 30 mmol/L (22-29); Chloride 101 mmol/L (96-108); Creatinine Clr Calc Pharmacy 50.2; Estimated Glomerular Filt Rate 58; Glucose Random 112 mg/dL (60-115); Lipase 12 U/L (8-78); Potassium 5.2 mmol/L (3.3-5.1); Sodium 136 mmol/L (135-145); Total Protein 6.2 g/dL (6.5-8.0)
[2024-10-03 15:57] LABS: OBS Int Ctl Valid YES; OBS1 POSITIVE (NEGATIVE)
--- NOTE | 2024-10-03 16:22 | ED_ITS ---
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 The patient is presenting from [facility] He had routine labs today that found a hemoglobin of 6.6. The patient reports that he feels well except for chronic foot pain He denies any black or bloody stool. He had his Eliquis discontinued about a month ago when he was admitted for anemia and osteomyelitis He denies any fevers, chills and reports that he feels generally well today Related Data Home Medications ?Medication ?Instructions ?Recorded ?Confirmed acetaminophen 325 mg tablet 975 mg PO Q6H PRN Pain/Fever 06/26/24 08/30/24 albuterol sulfate 2.5 mg/3 mL 2.5 mg inhalation Q4H PRN 06/26/24 08/30/24 (0.083 %) solution for nebulization Shortness Of Breath Or Wheezing amiodarone 200 mg tablet 200 mg PO DAILY 06/26/24 08/30/24 ascorbic acid (vitamin C) 500 mg 500 mg PO BID 06/26/24 08/30/24 tablet bisacodyl 10 mg rectal suppository 10 mg AK DAILY PRN Constipation 06/26/24 08/30/24 docusate sodium 100 mg tablet 100 mg PO BID 06/26/24 08/30/24 famotidine 20 mg tablet 20 mg PO BEDTIME 06/26/24 08/30/24 ferrous sulfate 325 mg (65 mg 325 mg PO BID 06/26/24 08/30/24 iron) tablet gabapentin 100 mg capsule 100 mg PO BID 06/26/24 08/30/24 levothyroxine 100 mcg tablet 100 mcg PO DAILY@0600 06/26/24 08/30/24 magnesium hydroxide 400 mg/5 mL 30 ml PO Q72H PRN Constipation 06/26/24 08/30/24 oral suspension (Milk of Magnesia) nystatin 100,000 unit/gram topical 1 appl topical BID 06/26/24 08/30/24 powder polyvinyl alcohol 1.4 % eye drops 1 drp ophthalmic (eye) Q6H PRN Dry 06/26/24 08/30/24 Eyes sennosides 8.6 mg tablet (senna) 17.2 mg PO BEDTIME 06/26/24 08/30/24 thiamine HCl (vitamin B1) 100 mg 100 mg PO DAILY 06/26/24 08/30/24 tablet (Vitamin B-1) Lactobacillus acidoph-L.bulgaricus 1 tab PO BID 08/11/24 08/30/24 1 million cell tablet collagenase clostridium histo. 250 1 appl topical DAILY 08/11/24 08/30/24 unit/gram topical ointment (Santyl) menthol 5 % topical patch (Cold 1 patch topical DAILY 08/11/24 08/30/24 and Hot (menthol)) multivitamin with minerals 1 tab PO DAILY 08/11/24 08/30/24 ondansetron HCl 4 mg tablet 4 mg PO Q8H PRN Nausea And Vomiting 08/11/24 08/30/24 sodium phosphates 19 gram-7 118 ml AK DAILY PRN Constipation 08/11/24 08/30/24 gram/118 mL enema (Fleet Enema) zinc acetate 50 mg (zinc) capsule 50 mg PO DAILY 08/11/24 08/30/24 melatonin 5 mg tablet 10 mg PO BEDTIME 08/20/24 08/30/24 sodium hypochlorite 0.25 % solution 1 appl topical DAILY 08/30/24 08/30/24 tramadol 50 mg tablet 50 mg PO Q8H PRN Pain 08/30/24 08/30/24 Previous Rx's ?Medication ?Instructions ?Recorded polyethylene glycol 3350 17 gram 17 g PO DAILY #30 ea 03/06/24 oral powder packet doxazosin 2 mg tablet 4 mg PO BEDTIME #0 tabs 07/02/24 finasteride 5 mg tablet 5 mg PO DAILY #0 tabs 07/02/24 omeprazole 20 mg capsule,delayed 20 mg PO BID@0630,1630 #0 caps 07/02/24 release ertapenem 1 gram solution for 1 g IV DAILY #10 ea 09/03/24 injection vancomycin 750 mg intravenous 750 mg IV DAILY #10 ea 09/03/24 solution Allergies Allergy/AdvReac Type Severity Reaction Status Date / Time ibuprofen [IBUPROFEN] Allergy Intermediate HIVES Verified 10/03/24 13:43 hydromorphone [From DILAUDID] AdvReac Intermediate ILEUS Verified 10/03/24 13:43 procaine [From Novocain] AdvReac Intermediate has no Verified 10/03/24 13:43 numbing effect-states monocain works narcotic pain meds AdvReac Intermediate does not Uncoded 10/03/24 13:43 relieve pain per patient Review of Systems 2 Constitutional: Constitutional: Denies body ache(s), Denies chills and Denies fever(s) Eyes: Eyes: Denies blurry vision ENT: Denies vertigo and Denies dizziness Cardiovascular: Cardiovascular: Denies chest pain and Denies dyspnea Respiratory: Respiratory: Denies cough and Denies dyspnea Gastrointestinal: Gastrointestinal: Denies abdominal pain, Denies melena, Denies hematochezia, Denies nausea and Denies vomiting Musculoskeletal: Musculoskeletal: Denies back pain Integumentary/Breasts: Skin/Breast: Denies rash Neurologic: Denies vertigo and Denies dizziness PMFSH Past Medical History Medical History Bilateral hydronephrosis Delirium Altered mental status Sepsis Atherosclerotic cardiovascular disease PAF (paroxysmal atrial fibrillation) NSTEMI (non-ST elevated myocardial infarction) Chronic renal disease, stage 3, moderately decreased glomerular filtration rate (GFR) between 30-59 mL/min/1.73 square meter Chest pain Heart failure Thyroid disease GERD (gastroesophageal reflux disease) On anticoagulant therapy COVID-19 vaccine series completed Symptomatic cholelithiasis HTN (hypertension) Hyperlipidemia Atrial fibrillation Sleep apnea Elevated PSA Facet arthropathy, cervical BPH loc w urin obs/LUTS Surgical History S/P percutaneous endoscopic gastrostomy (PEG) tube placement Hx of tracheostomy S/P laparoscopic cholecystectomy Hx of cataract extraction History of total replacement of both hip joints Hx of cystoscopy H/O colonoscopy History of surgery Family History Family History Unknown No problems noted. 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) Alcohol intake: never Comment: patient is chair, bedbound Patient Tobacco Use Status: Never used Tobacco Smoked in Last 30 Days: No Use of substances other than those prescribed or required for medical reasons: No Advance Directives: Yes Advance Directives on File: Yes Advance Directives Date on File: 03/07/24 Do you have a plan to hurt others: No Plan service: No Current occupational status: retired Physical Exam ED Vital Signs: Vital Signs - 24 hr 10/03/24 13:42 10/03/24 14:51 Temperature 97.8 F Pulse Rate 79 79 Respiratory Rate 18 20 Blood Pressure 108/48 L 108/65 Pulse Oximetry 98 98 Oxygen Delivery Method Nasal Cannula Nasal Cannula Oxygen Flow Rate 2 BMI result Body Mass Index 27.4 Const General: healthy appearing, comfortable, no acute distress, alert and awake Nutritional Appearance: well nourished Orientation/consciousness: patient oriented x3 HENMT Head: Yes normocephalic and Yes atraumatic Eyes Eyelids: Yes eyelids normal Conjunctivae: conjunctivae normal Sclerae: sclerae normal Corneas: corneas normal Pupils: Equal, round and reactive pupils present EOM: EOMs intact bilaterally Neck Neck: Yes full ROM Resp Effort & Inspection: normal respiratory effort, able to speak in complete sentences, no audible wheezes and not labored Auscultation: clear to auscultation bilaterally GI Other: Large healing sacral ulcer, there is no foul-smelling drainage Inspection: No distended Palpation (GI): Soft to palpation, not firm, nontender, no guarding and not rigid Rectal Exam - Male: Yes Visual inspection abnormal and Yes heme positive stool Skin General skin exam: elasticity normal Neuro General: patient oriented x3 Cranial nerves: Yes Equal, round and reactive pupils present and Yes Bilaterally intact EOM present Cognition (Neuro): normal cognition Extrem Other: Moving all extremities well without any obvious deformities Medications Administered Discontinued Medications Generic Name Dose Route Start Last Admin Trade Name Freq PRN Reason Stop Dose Admin Sodium Chloride 500 mls @ 999 mls/hr 10/03/24 16:45 10/03/24 16:56 Ns IV 10/03/24 17:15 999 mls/hr .Q31M [facility] Administration Medical Decision Making Medical Decision Making [facility] Narrative: 84-year-old male presents for evaluation of abnormal labs. He was found to be anemic to 6.6 on routine labs in the community. He is no longer on anticoagulation, his Eliquis was stopped about a month ago when he was admitted here. I went through his intermediate paperwork and he is on aspirin 81 mg daily but no anticoagulation. The patient's stool was guaiac positive. The stool was green, he does not appear to be having an active hemorrhage. His vital signs are stable. His blood work is otherwise reassuring, he does complain of left lower leg pain. He has an x-ray report from a couple days ago that shows no osteomyelitis of the right heel where he has a chronic wound. The patient has received previous blood transfusions at this facility, he was agreeable to receive a blood transfusion. I discussed with the hospitalist given his age, aspirin use he will be brought into the hospital for observation overnight Differential Diagnosis Differential Diagnoses: The differential diagnosis associated with the presentation includes Acute GI bleed Anemia of chronic disease Symptomatic anemia Blood loss anemia Admission/Observation Consideration of admission/observation: Escalation of care including admission/observation considered Lab Data MDM Lab Attestation statement: I reviewed the patient's lab results. No leukocytosis. The patient does have acute anemia on top of chronic anemia. His hemoglobin today is 6.7, about 1-1/2 points lower than his baseline. The patient's sodium is within normal limits, his potassium is slightly elevated to 5.2 which could be related to hypovolemia, we will give a small bolus of IV fluids. BUN is elevated to 39 with a normal crit and of 1.20. Glucose within normal limits. 10/03/24 15:02 10/03/24 15:02 Labs: Lab Results 10/03/24 10/03/24 Range/Units 15:02 15:48 WBC 9.3 (4.8-10.8) X10*3/uL RBC 2.45 L D (4.60-5.80) X10*6/uL Hgb 6.7 L* D (14.0-18.0) g/dl Hct 21.7 L D (42.0-52.0) % MCV 88.6 (80.0-98.0) fL MCH 27.3 (27.0-33.0) pg MCHC 30.9 L (31.0-36.0) g/dl RDW 17.0 H (11.0-16.0) % Plt Count 245 (160-400) X10*3/uL MPV 8.4 L (9.4-12.4) fL Immature Gran % (Auto) 0.5 H (0.0-0.4) % Neut % (Auto) 72.5 (45-73) % Lymph % (Auto) 13.8 L (20-40) % [place] % (Auto) 9.8 (2-11) % Eos % (Auto) 3.0 (0-4) % Baso % (Auto) 0.4 (0-2) % Lymph # (Auto) 1.3 (1.2-4.9) X10*3/uL [place] # (Auto) 0.9 (0.1-1.2) X10*3/uL Eos # (Auto) 0.3 (0.0-0.4) X10*3/uL Baso # (Auto) 0.0 (0.0-0.2) X10*3/uL Abs Immat Gran (auto) 0.05 H (0.00-0.03) X10*3/uL Absolute Neuts (auto) 6.8 (2.0-8.3) x10*3/uL Absolute Nucleated RBC 0.000 (0.0-0.012) X10*3/uL Nucleated RBC % (auto) 0.0 (0.0-0.2) /100WBC Sodium 136 (135-145) mmol/L Potassium 5.2 H D (3.3-5.1) mmol/L Chloride 101 (96-108) mmol/L Carbon Dioxide 30 H (22-29) mmol/L Anion Gap 10 L (12-20) BUN 39 H (9-16) mg/dL Creatinine 1.20 (0.5-1.4) mg/dL Estim Creat Clear Calc 50.2 Estimated GFR 58 Random Glucose 112 (60-115) mg/dL Calcium 8.5 (8.4-10.2) mg/dL Total Bilirubin 0.2 (0.0-1.0) mg/dL Direct Bilirubin < 0.2 (0.0-0.5) mg/dL AST 67 H (5-37) U/L ALT 37 (0-40) U/L Alkaline Phosphatase 93 (39-117) U/L Total Protein 6.2 L (6.5-8.0) g/dL Albumin 2.1 L (3.5-5.0) g/dL Lipase 12 (8-78) U/L Stool Occult Blood POSITIVE (NEGATIVE) Blood Type O Positive Antibody Screen NEGATIVE Crossmatch See Detail Discharge Plan Discharge Clinical Impression: Anemia Patient Disposition: Admitted As Inpatient Print Language: Upper Sorbian
[2024-10-03 16:23] LABS: Alkaline Phosphatase 93 U/L (39-117)
[2024-10-03] MEDS: 0.9 % Sodium Chloride 500 ML 999 ML IV (16:56)
--- NOTE | 2024-10-03 17:09 | P.HPHOSP_ITS ---
History of Present Illness Date of Service: 10/03/24 Attending physician on admission: Carlos Foster Chief Complaint: Anemia Pt is an 84-year-old female with a PMH significant for? paroxysmal AFib no longer on Eliquis due to anemia, hx of ablation, cardiomyopathy, HFrEF (40-45%), HTN, HLD, nephrolithiasis, and stage IV sacral decubitus ulcers with recent vertebral osteomyelitis who presents to the ED from [facility] for evaluation of routine labs showing H&H of 6.6/22.2. Pt states overall he feels ?pretty good? and is asymptomatic. Denies lightheadedness, dizziness. Denies melena or hematochezia, but admits that he does not often see his stool. Denies nausea, vomiting. No abdominal pain or GERD like symptoms. Denies shortness or breath or difficulty breathing. No chest pain/pressure, palpitations. In the ED pt's BP slightly soft at 101/47, vitals otherwise stable and WNL. Labs were significant for H&H 6.7/21.7 (decreased from 8.6/27.4 on 09/03/2024), stool positive for occult blood, potassium 5.2, AST 67, and albumin 2.1. No leukocytosis. Renal function baseline. X-ray of left tibia and fibula showed no acute findings but showed severe degenerative changes of the knee with possible loose body. Pt was treated with IVF and transfused 1 unit of PRBCs. Pt will be admitted to the hospital under observation for treatment and further evaluation of acute on chronic anemia requiring transfusion. Review of Systems 2 Review of Systems: Negative except for that which is stated in HPI. [facility] Medical History Bilateral hydronephrosis Delirium Altered mental status Sepsis Atherosclerotic cardiovascular disease PAF (paroxysmal atrial fibrillation) NSTEMI (non-ST elevated myocardial infarction) Chronic renal disease, stage 3, moderately decreased glomerular filtration rate (GFR) between 30-59 mL/min/1.73 square meter Chest pain Heart failure Thyroid disease GERD (gastroesophageal reflux disease) On anticoagulant therapy COVID-19 vaccine series completed Symptomatic cholelithiasis HTN (hypertension) Hyperlipidemia Atrial fibrillation Sleep apnea Elevated PSA Facet arthropathy, cervical BPH loc w urin obs/LUTS Family History Unknown No problems noted. 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) Alcohol intake: never Comment: patient is chair, bedbound Patient Tobacco Use Status: Never used Tobacco Smoked in Last 30 Days: No Use of substances other than those prescribed or required for medical reasons: No Advance Directives: Yes Advance Directives on File: Yes Advance Directives Date on File: 03/07/24 Do you have a plan to hurt others: No Plan service: No Current occupational status: retired Meds Allergies Allergy/AdvReac Type Severity Reaction Status Date / Time ibuprofen [IBUPROFEN] Allergy Intermediate HIVES Verified 10/03/24 13:43 hydromorphone [From DILAUDID] AdvReac Intermediate ILEUS Verified 10/03/24 13:43 procaine [From Novocain] AdvReac Intermediate has no Verified 10/03/24 13:43 numbing effect-states monocain works narcotic pain meds AdvReac Intermediate does not Uncoded 10/03/24 13:43 relieve pain per patient Active Medications: Current Medications Sodium Chloride (Ns) 500 mls @ 999 mls/hr IV .Q31M AIDAN Stop: 10/03/24 17:15 Last Admin: 10/03/24 16:56 Dose: 999 mls/hr Home Medications ?Medication ?Instructions ?Recorded ?Confirmed ?Last Taken ?Type acetaminophen 325 mg tablet 975 mg PO Q6H PRN Pain/Fever 06/26/24 08/30/24 Unknown History albuterol sulfate 2.5 mg/3 mL 2.5 mg inhalation Q4H PRN 06/26/24 08/30/24 Unknown History (0.083 %) solution for nebulization Shortness Of Breath Or Wheezing amiodarone 200 mg tablet 200 mg PO DAILY 06/26/24 08/30/24 Unknown History ascorbic acid (vitamin C) 500 mg 500 mg PO BID 06/26/24 08/30/24 Unknown History tablet bisacodyl 10 mg rectal suppository 10 mg IA DAILY PRN Constipation 06/26/24 08/30/24 Unknown History docusate sodium 100 mg tablet 100 mg PO BID 06/26/24 08/30/24 Unknown History famotidine 20 mg tablet 20 mg PO BEDTIME 06/26/24 08/30/24 Unknown History ferrous sulfate 325 mg (65 mg 325 mg PO BID 06/26/24 08/30/24 Unknown History iron) tablet gabapentin 100 mg capsule 100 mg PO BID 06/26/24 08/30/24 Unknown History levothyroxine 100 mcg tablet 100 mcg PO DAILY@0600 06/26/24 08/30/24 Unknown History magnesium hydroxide 400 mg/5 mL 30 ml PO Q72H PRN Constipation 06/26/24 08/30/24 Unknown History oral suspension (Milk of Magnesia) nystatin 100,000 unit/gram topical 1 appl topical BID 06/26/24 08/30/24 Unknown History powder polyvinyl alcohol 1.4 % eye drops 1 drp ophthalmic (eye) Q6H PRN Dry 06/26/24 08/30/24 Unknown History Eyes sennosides 8.6 mg tablet (senna) 17.2 mg PO BEDTIME 06/26/24 08/30/24 Unknown History thiamine HCl (vitamin B1) 100 mg 100 mg PO DAILY 06/26/24 08/30/24 Unknown History tablet (Vitamin B-1) Lactobacillus acidoph-L.bulgaricus 1 tab PO BID 08/11/24 08/30/24 Unknown History 1 million cell tablet collagenase clostridium histo. 250 1 appl topical DAILY 08/11/24 08/30/24 Unknown History unit/gram topical ointment (Santyl) menthol 5 % topical patch (Cold 1 patch topical DAILY 08/11/24 08/30/24 Unknown History and Hot (menthol)) multivitamin with minerals 1 tab PO DAILY 08/11/24 08/30/24 Unknown History ondansetron HCl 4 mg tablet 4 mg PO Q8H PRN Nausea And Vomiting 08/11/24 08/30/24 Unknown History sodium phosphates 19 gram-7 118 ml IA DAILY PRN Constipation 08/11/24 08/30/24 Unknown History gram/118 mL enema (Fleet Enema) zinc acetate 50 mg (zinc) capsule 50 mg PO DAILY 08/11/24 08/30/24 Unknown History melatonin 5 mg tablet 10 mg PO BEDTIME 08/20/24 08/30/24 Unknown History sodium hypochlorite 0.25 % solution 1 appl topical DAILY 08/30/24 08/30/24 Unknown History tramadol 50 mg tablet 50 mg PO Q8H PRN Pain 08/30/24 08/30/24 Unknown History Physical Exam 2 Vital Signs and Narrative: Vital Signs: Last Vital Signs Temp 97.8 F 10/03/24 13:42 Pulse 79 10/03/24 14:51 Resp 20 10/03/24 14:51 BP 108/65 10/03/24 14:51 Pulse Ox 98 10/03/24 14:51 O2 Del Method Nasal Cannula 10/03/24 14:51 O2 Flow Rate 2 10/03/24 14:51 Oxygen Flow Rate 2 10/03/24 13:42 BMI result Body Mass Index 27.4 General: AOx3, no acute distress Resp: CTA bilaterally CVS: S1, S2, regularl rate, +murmur GI: +BS, NT, no distention Skin: Unstageable decubitus ulcers of bilateral heels. Large stage IV sacral decubitus ulcer Neuro: Cranial nerves II-XII grossly intact bilaterally. Motor grossly intact bilaterally Extremities: 2+ bilateral pitting edema Psych: Appropriate affect Results Labs 10/03/24 15:02 10/03/24 15:02 Labs: Laboratory Results - last 24 hr 10/03/24 10/03/24 15:02 15:48 MCV 88.6 MCH 27.3 MCHC 30.9 L RDW 17.0 H Plt Count 245 MPV 8.4 L Immature Gran % (Auto) 0.5 H Neut % (Auto) 72.5 Lymph % (Auto) 13.8 L [place] % (Auto) 9.8 Eos % (Auto) 3.0 Baso % (Auto) 0.4 Lymph # (Auto) 1.3 [place] # (Auto) 0.9 Eos # (Auto) 0.3 Baso # (Auto) 0.0 Abs Immat Gran (auto) 0.05 H Absolute Neuts (auto) 6.8 Absolute Nucleated RBC 0.000 Nucleated RBC % (auto) 0.0 Anion Gap 10 L Estim Creat Clear Calc 50.2 Estimated GFR 58 Random Glucose 112 Calcium 8.5 Total Bilirubin 0.2 Direct Bilirubin < 0.2 AST 67 H ALT 37 Alkaline Phosphatase 93 Total Protein 6.2 L Albumin 2.1 L Lipase 12 Stool Occult Blood POSITIVE Blood Type O Positive Antibody Screen NEGATIVE Crossmatch See Detail Assessment and Plan (1) Acute on chronic blood loss anemia: Status: Acute Plan Pt is an 84-year-old female with a PMH significant for? paroxysmal AFib no longer on Eliquis due to anemia, hx of ablation, cardiomyopathy, HFrEF (40-45%), HTN, HLD, nephrolithiasis, and stage IV sacral decubitus ulcers with recent vertebral osteomyelitis who presents to the ED from [facility] for evaluation of routine labs showing H&H of 6.6/22.2. Pt will be admitted to the hospital under observation for treatment and further evaluation of acute on chronic anemia requiring transfusion. Acute on chronic blood loss anemia H&H 6.7/21.7, decreased from 8 0.6/27.4 on 09/03/2024 Stool heme-positive Pt asymptomatic: Denies lightheadedness, dizziness, increased fatigue, melena, or hematochezia Pt transfused 1 unit PRBCs in the ED Check iron studies Continue home iron supplementation GI consult for possible scoping Follow CBC Chronic decubitus ulcers Pt with unstable bilateral ulcers on heels, stage IV sacral decubitus ulcer Previous admitted on 08/29-09/03/2024 for osteomyelitis Pt positioning q.2h, air loss mattress, protein supplementation See wound care notes from last admission for additional wound care treatment CKD 3 Stable, at baseline Monitor BMP Paroxysmal AFib No longer on Eliquis due to anemia Continue amiodarone Hypothyroidism Continue levothyroxine Full Code Attending:?Dr. Foster DVT Prophylaxis: Pneumatic compression due to anemia Pt will be admitted to the hospital under observation for treatment and further evaluation of?acute on chronic blood loss anemia requiring transfusion and close monitoring of labs to evaluate for acute bleed. Quality Stroke Does the patient have a stroke diagnosis?: No VTE Prior VTE?: No VTE Risk Level:: Medical - moderate - high VTE Device Contraindication: N/A - Device Ordered VTE Drug Contraindication: Treatment Not Indicated
[2024-10-03 18:47] LABS: Iron 35 mcg/dL (45-160); Percent Iron Saturation 25 % (15-50); Total Iron Binding Capacity 142 mcg/dL (228-428); Unsaturated Iron Binding 107 ug/dL
--- NOTE | 2024-10-03 19:28 | PHA.MEDREC ---
Pharmacy Consult ? Medication Reconciliation Pharmacy has completed the medication reconciliation. Utilized list from [facility] to confirm med list.
--- NOTE | 2024-10-03 19:45 | PC.NURSE ---
Report taken from Zainab HATFIELD assumed care of pt at 1900. Pt resting in bed A&Ox3 skin pale warm and dry. Denies pain, offers no complaints at this time. Packed RBCs infusing without difficulty, no s/s transfusion reaction. NSR on monitor. Awaiting bed assignment for admission, aware of plan of care.
[2024-10-04] MEDS: 0.9 % Sodium Chloride Flush 3 ML SYRINGE IVFLUSH ×2 (00:13→08:24)
--- NOTE | 2024-10-04 04:15 | PC.NURSE ---
Assumed care of patient . Patient A&Ox4 , vital signs stable. Patient sleeping throughout night. Purposeful rounding performed
[2024-10-04 06:08] VITALS: BP 126/72; PULSE 69; RESP 18; TEMP 36.5; O2SAT 95
[2024-10-04] MEDS: Levothyroxine Sodium 100 MCG TABLET PO (06:47)
[2024-10-04 07:36] LABS: Hematocrit 25.2 % (42.0-52.0); Hemoglobin 7.9 g/dl (14.0-18.0); Mean Corpuscular HGB Conc 31.3 g/dl (31.0-36.0); Mean Corpuscular Volume 89.4 fL (80.0-98.0); Mean Platelet Volume 8.5 fL (9.4-12.4); Platelet Count 249 X10*3/uL (160-400); Red Blood Count 2.82 X10*6/uL (4.60-5.80); Red Cell Distribution Width 16.3 % (11.0-16.0)
[2024-10-04 07:41] VITALS: BP 114/41; PULSE 70; RESP 17; TEMP 36.5; O2SAT 97
[2024-10-04 07:43] LABS: Anion Gap 11 (12-20); Blood Urea Nitrogen 34 mg/dL (9-16); Calcium 8.5 mg/dL (8.4-10.2); Carbon Dioxide 31 mmol/L (22-29); Chloride 102 mmol/L (96-108); Creatinine Clr Calc Pharmacy 56.4; Estimated Glomerular Filt Rate > 60; Glucose Random 81 mg/dL (60-115); Potassium 4.9 mmol/L (3.3-5.1); Sodium 139 mmol/L (135-145)
[2024-10-04 08:22] VITALS: O2SAT 97
[2024-10-04] MEDS: Meropenem 1 GM VIAL IVPUSH (08:22)
[2024-10-04] MEDS: Finasteride 5 MG TABLET PO (08:22)
[2024-10-04] MEDS: Multivitamin TABLET 1 TAB PO (08:23)
[2024-10-04] MEDS: Atorvastatin Calcium 40 MG TABLET PO (08:23)
[2024-10-04] MEDS: Amiodarone HCL 200 MG TABLET PO (08:23)
[2024-10-04] MEDS: Ascorbic Acid 500 MG TABLET PO (08:23)
[2024-10-04] MEDS: Aspirin Enteric Coated 81 MG TABLET.DR PO (08:23)
[2024-10-04] MEDS: Thiamine HCL 100 MG TABLET PO (08:23)
[2024-10-04] MEDS: Docusate Sodium 100 MG CAPSULE PO (08:23)
[2024-10-04] MEDS: Gabapentin 100 MG CAPSULE PO (08:23)
[2024-10-04] MEDS: Pantoprazole Sodium 20 MG TABLET.DR 40 MG PO (08:23)
--- NOTE | 2024-10-04 09:00 | PM.DS ---
DS: Providers Provider Date of Service: 10/04/24 Date of admission: 10/03/24 18:15 Date of discharge: 10/04/24 Primary care physician: Manny Mejia MD DS: Diagnosis Discharge Diagnosis (1) Acute on chronic blood loss anemia: Status: Acute DS: Summary Hospital Course Hospital Course: from initial hpi: 84-year-old female with a PMH significant for? paroxysmal AFib no longer on Eliquis due to anemia, hx of ablation, cardiomyopathy, HFrEF (40-45%), HTN, HLD, nephrolithiasis, and stage IV sacral decubitus ulcers with recent vertebral osteomyelitis who presents to the ED from [facility] for evaluation of routine labs showing H&H of 6.6/22.2. Pt states overall he feels ?pretty good? and is asymptomatic. Denies lightheadedness, dizziness. Denies melena or hematochezia, but admits that he does not often see his stool. Denies nausea, vomiting. No abdominal pain or GERD like symptoms. Denies shortness or breath or difficulty breathing. No chest pain/pressure, palpitations. In the ED pt's BP slightly soft at 101/47, vitals otherwise stable and WNL. Labs were significant for H&H 6.7/21.7 (decreased from 8.6/27.4 on 09/03/2024), stool positive for occult blood, potassium 5.2, AST 67, and albumin 2.1. No leukocytosis. Renal function baseline. X-ray of left tibia and fibula showed no acute findings but showed severe degenerative changes of the knee with possible loose body. Pt was treated with IVF and transfused 1 unit of PRBCs. Pt will be admitted to the hospital under observation for treatment and further evaluation of acute on chronic anemia requiring transfusion. hospital course: Was admitted for acute on chronic anemia. This was likely primarily inflammatory anemia with small component of acute blood loss. Was transfused 1 unit PRBC and hemoglobin improved appropriately. Iron studies consistent with inflammation. Can follow up GI as outpatient for workup of blood loss. For chronic decubitus ulcer with recent osteomyelitis was continued on IV meropenem and we will continue IV ertapenem on discharge. For CKD 3 remained stable. For paroxysmal AFib no longer on anticoagulation due to anemia, was continued on amiodarone. For hypothyroidism was continue levothyroxine. Time Attestation Discharge Coordination Time (in mins): 33 Quality: Safe Use of Opioids Does Pt have an Active Cancer Diagnosis on the Problem List?: No Quality: Stroke Does the patient have a stroke diagnosis?: No Physical Exam Vital Signs: Vital Signs: Last Vital Signs Temp 97.7 F 10/04/24 07:41 Pulse 70 10/04/24 07:41 Resp 17 10/04/24 07:41 BP 114/41 L 10/04/24 07:41 Pulse Ox 97 10/04/24 08:22 O2 Del Method Nasal Cannula 10/04/24 08:22 O2 Flow Rate 3 10/04/24 08:22 Oxygen Flow Rate 2 10/03/24 13:42 BMI result Body Mass Index 27.4 General: AOx3, no acute distress Resp: CTA bilaterally CVS: S1, S2, regularl rate, +murmur GI: +BS, NT, no distention Skin: Unstageable decubitus ulcers of bilateral heels. Large stage IV sacral decubitus ulcer Neuro: Cranial nerves II-XII grossly intact bilaterally. Motor grossly intact bilaterally Extremities: 2+ bilateral pitting edema Psych: Appropriate affect DS: Data Data Completed and Pending Completed studies during hospitalization [Text1]: Procedures Assistance with Respiratory Ventilation, Less than 24 Consecutive Hours, Continuous Positive Airway Pressure (07/07/22) Bypass Trachea to Cutaneous with Tracheostomy Device, Open Approach (02/09/24) Dilation of Left Ureter with Intraluminal Device, Via Natural or Artificial Opening Endoscopic (07/07/22) Drainage of Left Main Bronchus, Via Natural or Artificial Opening Endoscopic (02/09/24) Drainage of Right Main Bronchus, Via Natural or Artificial Opening Endoscopic (02/09/24) Extraction of Left Hip Muscle, Open Approach (08/11/24) Extraction of Right Hip Muscle, Open Approach (08/11/24) Fluoroscopy of Left Kidney, Ureter and Bladder using Low Osmolar Contrast (07/07/22) Insertion of Endotracheal Airway into Trachea, Via Natural or Artificial Opening (02/09/24) Insertion of Feeding Device into Stomach, Percutaneous Approach (02/09/24) Insertion of Infusion Device into Right Atrium, Percutaneous Approach (02/09/24) Insertion of Infusion Device into Right Cephalic Vein, Percutaneous Approach (06/26/24) Insertion of Infusion Device into Superior Vena Cava, Percutaneous Approach (08/29/24) Insertion of Infusion Device into Upper Vein, Percutaneous Approach (02/09/24) Removal of Infusion Device from Upper Vein, External Approach (02/09/24) Repair Neck, Stoma, External Approach (02/09/24) Respiratory Ventilation, 24-96 Consecutive Hours (02/09/24) Respiratory Ventilation, Greater than 96 Consecutive Hours (02/09/24) Pentecostalism of Cardiac Rhythm, Single (07/07/22) Transfusion of Nonautologous Red Blood Cells into Peripheral Vein, Percutaneous Approach (08/29/24) Ultrasonography of Superior Vena Cava, Guidance (08/29/24) Labs on day of discharge: Laboratory Results - last 24 hr 10/03/24 10/03/24 10/04/24 15:02 15:48 06:40 WBC 9.3 7.0 RBC 2.45 L D 2.82 L Hgb 6.7 L* D 7.9 L Hct 21.7 L D 25.2 L MCV 88.6 89.4 MCH 27.3 28.0 MCHC 30.9 L 31.3 RDW 17.0 H 16.3 H Plt Count 245 249 MPV 8.4 L 8.5 L Immature Gran % (Auto) 0.5 H Neut % (Auto) 72.5 Lymph % (Auto) 13.8 L [place] % (Auto) 9.8 Eos % (Auto) 3.0 Baso % (Auto) 0.4 Lymph # (Auto) 1.3 [place] # (Auto) 0.9 Eos # (Auto) 0.3 Baso # (Auto) 0.0 Abs Immat Gran (auto) 0.05 H Absolute Neuts (auto) 6.8 Absolute Nucleated RBC 0.000 0.000 Nucleated RBC % (auto) 0.0 0.0 Sodium 136 139 Potassium 5.2 H D 4.9 Chloride 101 102 Carbon Dioxide 30 H 31 H Anion Gap 10 L 11 L BUN 39 H 34 H Creatinine 1.20 1.07 Estim Creat Clear Calc 50.2 56.4 Estimated GFR 58 > 60 Random Glucose 112 81 Calcium 8.5 8.5 Iron 35 L TIBC 142 L % Saturation 25 Unsat Iron Binding 107 Total Bilirubin 0.2 Direct Bilirubin < 0.2 AST 67 H ALT 37 Alkaline Phosphatase 93 Total Protein 6.2 L Albumin 2.1 L Lipase 12 Stool Occult Blood POSITIVE Blood Type O Positive Antibody Screen NEGATIVE Crossmatch See Detail Discharge Plan Discharge Anticipated Discharge Date/Time: 10/04/24 08:57 Patient Disposition: Xfer [facility] Discharge Diagnosis: anemia Referrals: Manny Mejia MD [Primary Care Provider] - 1 Week Discharge Medications: Continued polyethylene glycol 3350 17 gram Powder In Packet 17 g PO DAILY Qty: 30 0RF Rx Instructions: Hold for loose stool. sennosides [senna] 8.6 mg Tablet 17.2 mg PO BEDTIME polyvinyl alcohol 1.4 % Drops 1 drp OPHTHALMIC (EYE) Q6H PRN (Reason: Dry Eyes) Rx Instructions: Both eyes thiamine HCl (vitamin B1) [Vitamin B-1] 100 mg Tablet 100 mg PO DAILY levothyroxine 100 mcg Tablet 100 mcg PO DAILY@0600 famotidine 20 mg Tablet 20 mg PO BEDTIME ascorbic acid (vitamin C) 500 mg Tablet 500 mg PO BID bisacodyl 10 mg Suppository 10 mg MT DAILY PRN (Reason: Constipation) Rx Instructions: If MoM not effective. ferrous sulfate 325 mg (65 mg iron) Tablet 325 mg PO BID gabapentin 100 mg Capsule 100 mg PO BID docusate sodium 100 mg Tablet 100 mg PO BID acetaminophen 325 mg tablet 650 mg PO Q6H PRN (Reason: Pain/Fever) amiodarone 200 mg tablet 200 mg PO DAILY nystatin 100,000 unit/gram Powder 1 appl TOPICAL BID Rx Instructions: Apply to Groin. finasteride 5 mg Tablet 5 mg PO DAILY Qty: 0 0RF doxazosin 2 mg Tablet 4 mg PO BEDTIME Qty: 0 0RF Protocol: Hold for SBP< HOLD for SBP < : 90 melatonin 5 mg tablet 10 mg PO BEDTIME PRN (Reason: Insomnia) zinc acetate 50 mg (zinc) Capsule 50 mg PO DAILY Rx Instructions: 08/10/24 - 08/24/24 ondansetron HCl 4 mg Tablet 4 mg PO Q8H PRN (Reason: Nausea And Vomiting) Fleet Enema 19-7 gram/118 mL Enema 118 ml MT DAILY PRN (Reason: Constipation) Santyl 250 unit/gram Ointment 1 appl TOPICAL DAILY Rx Instructions: apply to left lateral leg multivitamin with minerals Tablet 1 tab PO DAILY Cold and Hot (menthol) 5 % Adhesive Patch,Medicated 1 patch TOPICAL DAILY Rx Instructions: apply to left knee Lactobacillus acidoph-L.bulgar 1 million cell Tablet 1 tab PO BID atorvastatin 20 mg Tablet 40 mg PO DAILY trazodone 50 mg Tablet 25 mg PO DAILY@1200 trazodone 50 mg Tablet 25 mg PO BID PRN (Reason: anxiety/restlessness) miconazole nitrate 2 % Cream 1 appl TOPICAL DAILY Rx Instructions: apply to coccyx clopidogrel [Plavix] 75 mg Tablet 75 mg PO DAILY aspirin 81 mg Tablet,Delayed Release (Dr/Ec) 81 mg PO DAILY magnesium hydroxide [Milk of Magnesia] 400 mg/5 mL Suspension 30 ml PO DAILY PRN (Reason: Constipation) pantoprazole 40 mg Tablet,Delayed Release (Dr/Ec) 40 mg PO BID fluticasone propionate 50 mcg/actuation [place],Suspension 2 spray INTRANASAL DAILY Rx Instructions: administer into each nostril tramadol 50 mg Tablet 100 mg PO Q6H PRN (Reason: Pain) sodium hypochlorite 0.25 % Solution 1 appl TOPICAL DAILY Rx Instructions: apply to coccyx Discharge Orders: Discharge Order (Routine); Ordered 10/04/24 Ordered By: Carlos Foster Diet: Advance to usual diet Activity on Discharge: As tolerated Stand Alone Forms: Patient Portal Discharge page Print Language: Bulgarian Care Plan Goals: recovery Health Concerns: inflammatory anemia Plan of Treatment: conitnue iv abx, monitor hgb occasionally, may need intermittent transfusions Assessment: see above
[2024-10-04 09:17] VITALS: BP 132/63; PULSE 74; RESP 18; TEMP 36; O2SAT 96
[2024-10-04] MEDS: Clopidogrel Bisulfate 75 MG TABLET PO (09:32)
[2024-10-04] MEDS: Ferrous Sulfate 324 MG TABLET.DR PO (09:32)
--- NOTE | 2024-10-04 10:32 | MHC.CM.PN ---
pt is pvr where he will return when dcd
--- NOTE | 2024-10-04 10:32 | MHC.CM.PN ---
pt retru i ng to pvr at 12:30 via yoel watson notified
[2024-10-04 12:47] VITALS: BP 125/60; PULSE 79; RESP 18; TEMP 36; O2SAT 99
== END 2024-10-04 13:11 | disposition skilled nursing facility (03) ==
LOC: HO.ED 16:33 → HO.EDOVER 18:26 → HO.S3 10-04 07:53
PROVIDERS: Physician Assistant; Admitting Provider Student in an Organized Health Care Education/Training Program; Emergency Provider Emergency Medicine; PCP Internal Medicine; Visit Provider Internal Medicine
DX: D62 Acute posthemorrhagic anemia (principal); L89.154 Pressure ulcer of sacral region, stage 4; L89.620 Pressure ulcer of left heel, unstageable; L89.610 Pressure ulcer of right heel, unstageable; R60.0 Localized edema; I13.0 Hypertensive heart and chronic kidney disease with heart failure and stage 1 through stage 4 chronic kidney disease, or unspecified chronic kidney disease; N18.30 Chronic kidney disease, stage 3 unspecified; I50.9 Heart failure, unspecified; I48.0 Paroxysmal atrial fibrillation; E03.9 Hypothyroidism, unspecified; E78.5 Hyperlipidemia, unspecified
CPT/HCPCS: 36415; 73590; 80048; 80076; 82272; 83540; 83690; 85025; 85027; 86850; 86900; 86901; 86923; 99221; 99285; J2185; P9016

== ENCOUNTER → 2024-10-03 15:39 | Outpatient (BNV) | payer MEDICARE, SELFPAY | PROVIDERS: Emergency Provider Emergency Medicine; PCP Internal Medicine; Visit Provider Nuclear Medicine | DX: M79.605 Pain in left leg (principal) | CPT/HCPCS: 73590 ==

== ENCOUNTER → 2024-10-03 18:15 | Outpatient (BNV) | payer MEDICARE, SELFPAY | PROVIDERS: Admitting Provider Student in an Organized Health Care Education/Training Program; Emergency Provider Emergency Medicine; PCP Internal Medicine; Visit Provider Student in an Organized Health Care Education/Training Program | DX: D62 Acute posthemorrhagic anemia (principal) | CPT/HCPCS: 99222; 99239 ==

== ENCOUNTER 2024-11-07 10:09 | Inpatient (IN) | payer MEDICARE, SELFPAY ==
[2024-11-07] VITALS (12 sets, daily range): BP systolic 100–126; BP diastolic 40–57; PULSE 76–91; RESP 13–23; TEMP 36.3–37.1; O2SAT 94–97; BMI 31.4
--- NOTE | 2024-11-07 10:40 | PC.NURSE ---
Attempted to change pt into hospital gown and remove old linens. Pt stated he was having pain in my left toes/hip, just put a wedge under me. Pt offered pillows/reposition to comfort after old linens are removed. Pt requesting to not be rolled. Pillows placed under left hip/thigh, pt resting comfortably and doesn't want to be moved. Will reattempt to change pt into hospital gown.
--- NOTE | 2024-11-07 11:05 | ED_ITS ---
HPI - General Adult General Chief complaint: Recheck/Abnormal Lab/Rx Stated complaint: ABN LABS FROM SNF PER EMS Time Seen by Provider: 11/07/24 11:04 Source: patient Mode of arrival: EMS Limitations: no limitations History of Present Illness HPI narrative: This is an 84-year-old man with a past medical history of paroxysmal atrial fibrillation no longer on Eliquis due to anemia, history of ablation, cardiomyopathy, HFrEF (40-45%), hypertension, hyperlipidemia and stage IV sacral decubitus ulcer with history of vertebral osteomyelitis who presents from SNF via EMS for evaluation of anemia. Patient states feeling well at this time. He states no complaints. He states he was yanked out of bed and brought here because his hemoglobin was low. He states that he has had this before. He states no hematuria. He has no hemoptysis or epistaxis. He states no trauma or falls. He states no melena or hematochezia. He states that he has required transfusions in the past and was admitted recently for that. Related Data Home Medications ?Medication ?Instructions ?Recorded ?Confirmed acetaminophen 325 mg tablet 650 mg PO Q6H PRN Pain/Fever 06/26/24 11/07/24 amiodarone 200 mg tablet 200 mg PO DAILY 06/26/24 11/07/24 ascorbic acid (vitamin C) 500 mg 500 mg PO BID 06/26/24 11/07/24 tablet bisacodyl 10 mg rectal suppository 10 mg [place] DAILY PRN Constipation 06/26/24 11/07/24 docusate sodium 100 mg tablet 200 mg PO BID 06/26/24 11/07/24 famotidine 20 mg tablet 20 mg PO BEDTIME 06/26/24 11/07/24 ferrous sulfate 325 mg (65 mg 325 mg PO BID 06/26/24 11/07/24 iron) tablet gabapentin 100 mg capsule 200 mg PO BID 06/26/24 11/07/24 levothyroxine 100 mcg tablet 100 mcg PO DAILY@0600 06/26/24 11/07/24 polyvinyl alcohol 1.4 % eye drops 1 drp ophthalmic (eye) Q6H PRN Dry 06/26/24 11/07/24 Eyes sennosides 8.6 mg tablet (senna) 17.2 mg PO BEDTIME 06/26/24 11/07/24 thiamine HCl (vitamin B1) 100 mg 100 mg PO DAILY 06/26/24 11/07/24 tablet (Vitamin B-1) Lactobacillus acidoph-L.bulgaricus 1 tab PO BID 08/11/24 11/07/24 1 million cell tablet collagenase clostridium histo. 250 1 appl topical DAILY 08/11/24 11/07/24 unit/gram topical ointment (Santyl) menthol 5 % topical patch (Cold 1 patch topical DAILY 08/11/24 11/07/24 and Hot (menthol)) ondansetron HCl 4 mg tablet 4 mg PO Q8H PRN Nausea And Vomiting 08/11/24 11/07/24 sodium phosphates 19 gram-7 118 ml [place] DAILY PRN Constipation 08/11/24 11/07/24 gram/118 mL enema (Fleet Enema) zinc acetate 50 mg (zinc) capsule 50 mg PO DAILY 08/11/24 11/07/24 melatonin 5 mg tablet 10 mg PO BEDTIME PRN Insomnia 08/20/24 11/07/24 tramadol 50 mg tablet 100 mg PO Q6H PRN Pain 08/30/24 11/07/24 aspirin 81 mg tablet,delayed 81 mg PO DAILY 10/03/24 11/07/24 release fluticasone propionate 50 2 spray intranasal DAILY 10/03/24 11/07/24 mcg/actuation nasal spray,suspension magnesium hydroxide 400 mg/5 mL 30 ml PO DAILY PRN Constipation 10/03/24 11/07/24 oral suspension (Milk of Magnesia) miconazole nitrate 2 % topical 1 appl topical BID 10/03/24 11/07/24 cream pantoprazole 40 mg tablet,delayed 40 mg PO BID@0630,1630 10/03/24 11/07/24 release trazodone 50 mg tablet 25 mg PO BID PRN DEPRESSION 10/03/24 11/07/24 trazodone 50 mg tablet 50 mg PO BEDTIME 10/03/24 11/07/24 amoxicillin 875 mg tablet 875 mg PO BID 11/07/24 11/07/24 atorvastatin 40 mg tablet 40 mg PO DAILY 11/07/24 11/07/24 doxazosin 2 mg tablet 2 mg PO BEDTIME 11/07/24 11/07/24 doxycycline hyclate 100 mg tablet 100 mg PO BID 11/07/24 11/07/24 heparin, porcine (PF) 5,000 5,000 unit subcut Q8H 11/07/24 11/07/24 unit/0.5 mL injection syringe sodium chloride-hypochlorous acid 1 irrig irrigation QSHIFT PRN 11/07/24 11/07/24 0.033 % irrigation solution (Vashe) WOUND CLEANING Previous Rx's ?Medication ?Instructions ?Recorded polyethylene glycol 3350 17 gram 17 g PO DAILY #30 ea 03/06/24 oral powder packet finasteride 5 mg tablet 5 mg PO DAILY #0 tabs 07/02/24 Allergies Allergy/AdvReac Type Severity Reaction Status Date / Time ibuprofen [IBUPROFEN] Allergy Intermediate HIVES Verified 11/07/24 10:31 hydromorphone [From DILAUDID] AdvReac Intermediate ILEUS Verified 11/07/24 10:31 procaine [From Novocain] AdvReac Intermediate has no Verified 11/07/24 10:31 numbing effect-states monocain works narcotic pain meds AdvReac Intermediate does not Uncoded 11/07/24 10:31 relieve pain per patient PMFSH Past Medical History Medical History Bilateral hydronephrosis Delirium Altered mental status Sepsis Atherosclerotic cardiovascular disease PAF (paroxysmal atrial fibrillation) NSTEMI (non-ST elevated myocardial infarction) Chronic renal disease, stage 3, moderately decreased glomerular filtration rate (GFR) between 30-59 mL/min/1.73 square meter Chest pain Heart failure Thyroid disease GERD (gastroesophageal reflux disease) On anticoagulant therapy COVID-19 vaccine series completed Symptomatic cholelithiasis HTN (hypertension) Hyperlipidemia Atrial fibrillation Sleep apnea Elevated PSA Facet arthropathy, cervical BPH loc w urin obs/LUTS Surgical History S/P percutaneous endoscopic gastrostomy (PEG) tube placement Hx of tracheostomy S/P laparoscopic cholecystectomy Hx of cataract extraction History of total replacement of both hip joints Hx of cystoscopy H/O colonoscopy History of surgery Family History Family History Unknown No problems noted. Social History Social History Household Members: Spouse Housing: House Are you a primary resident care director to a significant other at home: No Do you presently have visiting nurse or other home services: Yes ([employer] 8hrs a day) Alcohol intake: never Comment: patient is chair, bedbound Patient Tobacco Use Status: Never used Tobacco Advance Directives Date on File: 03/07/24 service: No Current occupational status: retired Physical Exam ED Vital Signs: Vital Signs - 24 hr 11/07/24 10:28 11/07/24 12:00 11/07/24 12:30 Temperature 97.9 F Pulse Rate 88 85 83 Respiratory Rate 16 13 16 Blood Pressure 110/47 L 100/40 L Pulse Oximetry 94 96 95 Oxygen Delivery Method Room Air 11/07/24 13:00 Temperature Pulse Rate 80 Respiratory Rate 23 H Blood Pressure Pulse Oximetry 94 Oxygen Delivery Method BMI result Body Mass Index 31.4 Gen: NAD, AOx3 HEENT: NCAT, EOMI, pale conjunctiva CV: RRR Pulm: CTAB, no increased work of breathing GI: Soft, NTND, no rebound, guarding or rigidity Neuro: Grossly non focal Medical Decision Making Medical Decision Making MDM Narrative: The patient presents with anemia. He has a history of inflammatory anemia in the past. He states no recent trauma or blood loss. He is hemodynamically stable. Repeat labs as below demonstrating anemia less than 7.0. Patient is consented for transfusion of 1 unit PRBCs. The patient's case and management as discussed with admitting hospitalist, Dr. Barnard, who accepts the patient for further workup and management. Critical Care Time: A total of 35 minutes spent in direct patient care with coordinating critical resuscitation, procedures, reviewing records, discussing with consultants, reviewing labs, and/or managing patient. Admission/Observation Consideration of admission/observation: Escalation of care including admission/observation considered Consult Healthcare Provider Management of the patient was discussed with: Hospitalist Lab Data [facility] Lab Attestation statement: I reviewed the patient's lab results. Labs notable for anemia with hemoglobin 6.7. Otherwise labs were reassuring. 11/07/24 11:58 11/07/24 12:25 Labs: Lab Results 11/07/24 11/07/24 11/07/24 Range/Units 11:58 12:17 12:25 WBC 7.2 (4.8-10.8) X10*3/uL RBC 2.49 L (4.60-5.80) X10*6/uL Hgb 6.7 L* (14.0-18.0) g/dl Hct 22.5 L (42.0-52.0) % MCV 90.4 (80.0-98.0) fL MCH 26.9 L (27.0-33.0) pg MCHC 29.8 L (31.0-36.0) g/dl RDW 17.9 H (11.0-16.0) % Plt Count 318 D (160-400) X10*3/uL MPV 9.2 L (9.4-12.4) fL Immature Gran % (Auto) 0.8 H (0.0-0.4) % Neut % (Auto) 69.8 (45-73) % Lymph % (Auto) 13.9 L (20-40) % [place] % (Auto) 12.1 H (2-11) % Eos % (Auto) 3.1 (0-4) % Baso % (Auto) 0.3 (0-2) % Lymph # (Auto) 1.0 L (1.2-4.9) X10*3/uL [place] # (Auto) 0.9 (0.1-1.2) X10*3/uL Eos # (Auto) 0.2 (0.0-0.4) X10*3/uL Baso # (Auto) 0.0 (0.0-0.2) X10*3/uL Abs Immat Gran (auto) 0.06 H (0.00-0.03) X10*3/uL Absolute Neuts (auto) 5.0 (2.0-8.3) x10*3/uL Absolute Nucleated RBC 0.000 (0.0-0.012) X10*3/uL Nucleated RBC % (auto) 0.0 (0.0-0.2) /100WBC Hold Blue Top SEE NOTE Sodium 145 (135-145) mmol/L Potassium 5.2 H (3.3-5.1) mmol/L Chloride 111 H (96-108) mmol/L Carbon Dioxide 26 (22-29) mmol/L Anion Gap 13 (12-20) BUN 36 H (9-16) mg/dL Creatinine 1.00 (0.5-1.4) mg/dL Estim Creat Clear Calc 68.9 Estimated GFR > 60 Random Glucose 113 (60-115) mg/dL Calcium 8.0 L (8.4-10.2) mg/dL Blood Type O Positive Antibody Screen NEGATIVE Crossmatch See Detail Independent Interpretation I performed an independent interpretation of an: EKG Interpretation: EKG shows sinus rhythm at 80 beats per minute, first-degree AV block, [place] 288, QRS 84, QTC of 396, no STEMI (no significant change when compared to previous EKG August 29, 2024) Discharge Plan Discharge Clinical Impression: Anemia Patient Disposition: Admitted As Inpatient
[2024-11-07 12:02] LABS: MANUAL DIFF FLAG NO
[2024-11-07 12:04] LABS: Basophils Percent Auto 0.3 % (0-2); Eosinophils Absolute Auto 0.2 X10*3/uL (0.0-0.4); Eosinophils Percent Auto 3.1 % (0-4); Hematocrit 22.5 % (42.0-52.0); Imm Gran Abs Auto 0.06 X10*3/uL (0.00-0.03); Imm Gran Pct Auto 0.8 % (0.0-0.4); Lymphocytes Percent Auto 13.9 % (20-40); Mean Corpuscular HGB Conc 29.8 g/dl (31.0-36.0); Mean Corpuscular Hemoglobin 26.9 pg (27.0-33.0); Mean Corpuscular Volume 90.4 fL (80.0-98.0); Mean Platelet Volume 9.2 fL (9.4-12.4); Monocytes Absolute Auto 0.9 X10*3/uL (0.1-1.2); Monocytes Percent Auto 12.1 % (2-11); Neutrophils Percent Auto 69.8 % (45-73); Platelet Count 318 X10*3/uL (160-400); Red Blood Count 2.49 X10*6/uL (4.60-5.80); Red Cell Distribution Width 17.9 % (11.0-16.0); White Blood Count 7.2 X10*3/uL (4.8-10.8)
[2024-11-07 12:07] LABS: Hemoglobin 6.7 g/dl (14.0-18.0)
--- OUTSIDE RECORDS SUMMARY | 2024-11-07 12:15 | XMS_ITS | Encounter Summary ---
Author Organization [facility] Address [address] [place] [address] Care Team Providers Care Nuclear Unit Operator Name Role Phone Uday Sheehan Primary Care Provider [phone] Encounter Details Date Type Department Care Team (Late st Contact Info) Description 04/26/2024 Lab Requisition [facility] [address] [place] [address] Ross Buchanan MD [address] [place] [address] Acute and chronic respiratory failure with hypoxia; No diagnosis Social History Tobacco Use Types [...] - 2.5 mg/dL 04/26/2024 10:52 AM EDT [facility] Blood Structure of peripheral vein / Unknown Venipuncture / Unknown 04/26/2024 10:14 AM EDT 04/26/2024 10:14 AM EDT us Ross Buchanan MD LAB BLOOD ORDERABLES Final R esult [facility] [address] [facility] [address] [place] [address], * (ABNORMAL) Comprehensive Metabolic Panel (04/26/2024 10:14 AM EDT) NA 140 136 - 145 mmol/L 04/26/2024 10:52 AM EDT [facility] K 3.8 3.5 - 5.1 mmol/L 04/26/2024 10:52 AM EDT [facility] Cl 98 98 - 109 mmol/L 04/26/2024 10:52 AM EDT [facility] CO2 34(H) 22 - 32 mmol/L 04/26/2024 10:52 AM EDT [facility] Anion Gap 12 >=0 04/26/2024 10:52 AM EDT [facility] Glucose 94 60 - 99 mg/dL 04/26/2024 10:52 AM EDT [facility] Creatinine 1.50(H) 0.50 - 1.12 mg/dL 04/26/2024 10:52 AM EDT [facility] Calcium 9.3 8.4 - 10.4 mg/dL 04/26/2024 10:52 AM EDT [facility] Total Protein 6.0(L) 6.6 - 8.7 g/dL 04/26/2024 10:52 AM EDT [facility] Albumin 2.9(L) 3.5 - 5.0 g/dL 04/26/2024 10:52 AM EDT [facility] Bilirubin, Total 0.3 0.2 - 1.2 mg/dL 04/26/2024 10:52 AM EDT [facility] Alkaline Phosphatase 113 40 - 129 U/L 04/26/2024 10:52 AM EDT [facility] AST 44(H) 0 - 40 U/L 04/26/2024 10:52 AM EDT [facility] ALT 40 <=41 U/L 04/26/2024 10:52 AM T [facility] BUN 51(H) 8 - 23 mg/dL 04/26/2024 10:52 AM T [facility] eGFR 46(L) >=60 mL/min/1. 73m2 04/26/2024 10:52 AM T [facility] Comment:The estimated glomer ular filtration [...] - 4.2 g/dL 04/26/2024 10:52 AM T [facility] A/G Ratio 0.9(L) 1.5 - 3.0 04/26/2024 10:52 AM [facility] Blood Structure of peripheral vein / Unknown Venipuncture / Unknown 04/26/2024 10:14 AM EDT 04/26/2024 10:14 AM EDT us Ross Buchanan MD LAB BLOOD ORDERABLES Final R esult [facility] [address] [place] [address], documented in this encounter Visit Diagnoses Diagnosis Acute and chronic respiratory failure with hypoxia (HCC) No diagnosis documented in this encounter Additional Health Concerns Infection Onset Date Last Indicated Resolved Time Multidrug resistant organisms MRSA 03/25/20242023 documented as of this encounter Care Teams Nuclear Unit Operator Relationship Specialty Start Date End Date Uday Sheehan [address] [place] [address] [place] [address] PCP - General Internal Medicine 03/27/24 documented as of this encounter
--- OUTSIDE RECORDS SUMMARY | 2024-11-07 12:15 | XMS_ITS | Encounter Summary ---
Author Organization [facility] Address [address] [place] [address] Care Team Providers Care Injection Molding Machine Offbearer Name Role Phone Uday Sheehan MD Primary Care Provider [phone] Encounter Details Date Type Department Care Team (Late st Contact Info) Description 09/18/2024 Lab Requisition [facility] - Main Lab [address] [place] [address] Tabby Bledsoe MD [address] [id number] Anemia, unspecified; Other disorders of electrolyte and fluid balance, not elsewhere classified Social History Tobacco Use Types Packs/Day Years [...] Associated Diagnosis Comments COMPLETE BLOOD COUNT Routine 09/18/2024 8:38 AM EDT Anemia, unspecified Other disorders of electrolyte and fluid balance, not elsewhere classified COMPREHENSIVE METABOLIC PANEL Routine 09/18/2024 8:38 AM EDT Anemia, unspecified Other disorders of electrolyte and fluid balance, not elsewhere classified documented in this encounter Results * (ABNORMAL) Comprehensive metabolic panel (09/18/2024 8:38 AM EDT) Sodium 141 133 - 145 mmol/L LAB CHEMISTRY METHOD 09/18/2024 1:[address] [facility] Potassium 4.1 3.5 - 5.5 mmol/L LAB CHEMISTRY METHOD 09/18/2024 1:[address] [facility] Chloride 106 96 - 110 mmol/L LAB CHEMISTRY METHOD 09/18/2024 1:[address] [facility] CO2 29 21 - 32 mmol/L LAB CHEMISTRY METHOD 09/18/2024 1:[address] [facility] Anion Gap 6 3 - 11 LAB CHEMISTRY METHOD 09/18/2024 1:[address] [facility] Glucose 81 70 - 100 mg/dL LAB CHEMISTRY METHOD 09/18/2024 1:[address] [facility] BUN 25 5 - 25 mg/dL LAB CHEMISTRY METHOD 09/18/2024 1:[address] [facility] Creatinine 1.40(H) 0.70 - 1.30 mg/dL LAB CHEMISTRY METHOD 09/18/2024 1:[address] [facility] eGFR 50(L) >=60 mL/min/1. 73m2 LAB CHEMISTRY METHOD 09/18/2024 1:[address] [facility] Comment:Calculation based on the??Chronic Kidney Disease Epidemiology Collaboration (CKD-EPI) equation refit??without adjustment for race. BUN/Creatinine Ratio 17.9 LAB CHEMISTRY METHOD 09/18/2024 1:[address] [facility] Calcium 8.2(L) 8.5 - 10.5 mg/dL LAB CHEMISTRY METHOD 09/18/2024 1:[address] [facility] AST (SGOT) 20 10 - 42 unit/L LAB CHEMISTRY METHOD 09/18/2024 1:[address] [facility] ALT (SGPT) 10 10 - 60 unit/L LAB CHEMISTRY METHOD 09/18/2024 1:[address] [facility] Alkaline Phosphatase 82 42 - 121 unit/L LAB CHEMISTRY METHOD 09/18/2024 1:01 PM EDT [facility] Total Protein 5.2(L) 6.0 - 8.0 g/dL LAB CHEMISTRY METHOD 09/18/2024 1:[address] [facility] Albumin 1.3(L) 3.2 - 5.0 g/dL LAB CHEMISTRY METHOD 09/18/2024 1:01 PM EDT [facility] Total Bilirubin 0.3 0.0 - 1.4 mg/dL LAB CHEMISTRY METHOD 09/18/2024 1:01 PM EDT [facility] Blood Venous blood specimen / Unknown Venipuncture / Unknown 09/18/2024 8:38 AM EDT 09/18/2024 10:35 AM EDT us Tabby Bledsoe MD LAB BLOOD ORDERABLES Fin al Result [facility] [address] [place] [address], * (ABNORMAL) Complete blood count (09/18/2024 8:38 AM EDT) WBC 6.7 4.8 - 10.8 K/mcL LAB HEMETOLOGY METHOD 09/18/2024 12:[address] [facility] RBC 2.70(L) 4.50 - 5.50 M/mcL LAB HEMETOLOGY METHOD 09/18/2024 12:[address] [facility] Hemoglobin 7.5(L) 13.5 - 17.5 g/dL LAB HEMETOLOGY METHOD 09/18/2024 12:[address] [facility] Hematocrit 25.5(L) 42.0 - 54.0 % LAB HEMETOLOGY METHOD 09/18/2024 12:[address] [facility] MCV 94.8 79.0 - 98.0 FL LAB HEMETOLOGY METHOD 09/18/2024 12:22 PM EDT [facility] MCH 27.9 27.0 - 32.0 pcg LAB HEMETOLOGY METHOD 09/18/2024 12:22 PM EDT [facility] MCHC 29.4(L) 32.0 - 37.0 g/dL LAB HEMETOLOGY METHOD 09/18/2024 12:22 PM EDT [facility] RDW 16.5(H) 11.0 - 15.0 % LAB HEMETOLOGY METHOD 09/18/2024 12:22 PM EDT [facility] Platelets 192 130 - 400 K/mcL LAB HEMETOLOGY METHOD 09/18/2024 12:22 PM EDT [facility] MPV 9.9 7.0 - 11.0 FL LAB HEMETOLOGY METHOD 09/18/2024 12:22 PM EDT [facility] NRBC 0.0 <1.0 % LAB HEMETOLOGY METHOD 09/18/2024 12:22 PM EDT [facility] NRBC Absolute 0.00 <0.10 K/mcL LAB HEMETOLOGY METHOD 09/18/2024 12:[address] [facility] Blood Venous blood specimen / Unknown Venipuncture / Unknown 09/18/2024 8:38 AM EDT 09/18/2024 10:35 AM EDT us Tabby Bledsoe MD LAB BLOOD ORDERABLES Fin al Result [facility] [address] [place] [address], documented in this encounter Visit Diagnoses Diagnosis Anemia, unspecified Other disorders of electrolyte and fluid balance, not elsewhere classified documented in this encounter Additional Health Concerns Infection Onset Date Last Indicated Resolved Time ESBL 06/22/2024 06/22/2024 documented as of this encounter Care Teams Injection Molding Machine Offbearer Relationship Specialty Start Date End Date Uday Sheehan MD [address] [facility] [address] Donna [place] PCP - General Global Logistics Analyst 12/19/16 documented as of this encounter
--- OUTSIDE RECORDS SUMMARY | 2024-11-07 12:15 | XMS_ITS | Encounter Summary ---
Author Organization [facility] Address [address] [place] [address] Care Team Providers Care Industrial Locomotive Operator Name Role Phone Uday Sheehan Primary Care Provider [phone] Encounter Details Date Type Department Care Team (Late st Contact Info) Description 04/24/2024 Lab Requisition [facility] Lab [address] [place] [address] Lidia Barry, CB [address] [place] [address] Acute and chronic respiratory failure with hypoxia; [...] - 10.8 10*3/uL 04/24/2024 10:46 AM EDT [facility] RBC 2.90(L) 4.70 - 6.10 10*6/uL 04/24/2024 10:46 AM EDT [facility] Hemoglobin 8.1(L) 13.7 - 16.5 g/dL 04/24/2024 10:46 AM EDT [facility] Hematocrit 25.3(L) 40.5 - 48.5 % 04/24/2024 10:46 AM EDT [facility] MCV 87.2 80.0 - 94.0 fL 04/24/2024 10:46 AM EDT [facility] MCH 27.9 26.0 - 34.0 pg 04/24/2024 10:46 AM EDT [facility] MCHC 32.0 31.0 - 36.0 g/dL 04/24/2024 10:46 AM EDT [facility] RDW 16.2(H) 12.0 - 15.0 % 04/24/2024 10:46 AM EDT [facility] RDW Standard Deviation 51.6(H) 35.1 - 43.9 fL 04/24/2024 10:46 AM EDT [facility] Platelets 160 140 - 440 10*3/uL 04/24/2024 10:46 AM EDT [facility] MPV 10.7 9.4 - 12.4 fL 04/24/2024 10:46 AM EDT [facility] Neutrophil % 51.2 50.0 - 75.0 % 04/24/2024 10:46 AM EDT [facility] Immature Grans % 0.2 0.0 - 0.9 % 04/24/2024 10:46 AM EDT [facility] Lymphocyte % 24.6 20.0 - 44.0 % 04/24/2024 10:46 AM EDT [facility] Monocyte % 18.4(H) 0.0 - 14.0 % 04/24/2024 10:46 AM EDT [facility] Eosinophil % 5.1(H) 0.0 - 5.0 % 04/24/2024 10:46 AM EDT [facility] Basophil % 0.5 0.0 - 2.0 % 04/24/2024 10:46 AM EDT [facility] Neutrophil # 2.80 1.80 - 7.70 10*3/uL 04/24/2024 10:46 AM EDT [facility] Immature Grans # <0.03 0.00 - 0.03 10*3/uL 04/24/2024 10:46 AM EDT [facility] Lymphocyte # 1.40 1.00 - 4.75 10*3/uL 04/24/2024 10:46 AM EDT [facility] Monocyte # 1.00 0.00 - 6.00 10*3/uL 04/24/2024 10:46 AM EDT [facility] Eosinophil # 0.30 0.00 - 0.80 10*3/uL 04/24/2024 10:46 AM EDT [facility] Basophil # <0.03 0.00 - 0.20 10*3/uL 04/24/2024 10:46 AM EDT [facility] nRBC % 0.0 0 - 0 /100 WBCs 04/24/2024 10:46 AM EDT [facility] nRBC # <0.01 0.00 - 0.13 10*3/uL 04/24/2024 10:46 AM EDT [facility] Blood Structure of peripheral vein / Unknown Venipuncture / Unknown 04/24/2024 8:53 AM EDT 04/24/2024 10:36 AM EDT us Lidia Barry AMMONIA NITRATE OPERATOR LAB BLOOD ORDERABLES Final R esult [facility] [address] [place] [address], * (ABNORMAL) Comprehensive Metabolic Panel (04/24/2024 8:53 AM EDT) NA 140 136 - 145 mmol/L 04/24/2024 11:40 AM EDT [facility] K 4.2 3.5 - 5.1 mmol/L 04/24/2024 11:40 AM EDT [facility] Cl 96(L) 98 - 109 mmol/L 04/24/2024 11:40 AM EDT [facility] CO2 33(H) 22 - 32 mmol/L 04/24/2024 11:40 AM EDT [facility] Anion Gap 15 >=0 04/24/2024 11:40 AM EDT [facility] Glucose 100(H) 60 - 99 mg/dL 04/24/2024 11:40 AM EDT [facility] Creatinine 1.60(H) 0.50 - 1.12 mg/dL 04/24/2024 11:40 AM EDT [facility] Calcium 9.6 8.4 - 10.4 mg/dL 04/24/2024 11:40 AM EDT [facility] Total Protein 5.9(L) 6.6 - 8.7 g/dL 04/24/2024 11:40 AM EDT [facility] Albumin 3.1(L) 3.5 - 5.0 g/dL 04/24/2024 11:40 AM EDT [facility] Bilirubin, Total 0.3 0.2 - 1.2 mg/dL 04/24/2024 11:40 AM EDT [facility] Alkaline Phosphatase 112 40 - 129 U/L 04/24/2024 11:40 AM EDT [facility] AST 32 0 - 40 U/L 04/24/2024 11:40 AM EDT [facility] ALT 33 <=41 U/L 04/24/2024 11:40 AM EDT [facility] BUN 53(H) 8 - 23 mg/dL 04/24/2024 11:40 AM EDT [facility] eGFR 42(L) >=60 mL/min/1. 73m2 04/24/2024 11:40 AM EDT [facility] Comment:The estimated glomer [...] - 4.2 g/dL 04/24/2024 11:40 AM EDT [facility] A/G Ratio 1.1(L) 1.5 - 3.0 04/24/2024 11:40 AM EDT [facility] Blood Structure of peripheral vein / Unknown Venipuncture / Unknown 04/24/2024 8:53 AM EDT 04/24/2024 10:36 AM EDT [facility] AMMONIA NITRATE OPERATOR LAB BLOOD ORDERABLES Final R esult [facility] [address] [place] [address] [address] [place] [address], documented in this encounter Visit Diagnoses Diagnosis Acute and chronic respiratory failure with hypoxia (HCC) No diagnosis documented in this encounter Additional Health Concerns Infection Onset Date Last Indicated Resolved Time 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
--- OUTSIDE RECORDS SUMMARY | 2024-11-07 12:15 | XMS_ITS | Encounter Summary ---
Author Organization [facility] Address [address] [place] [address] Care Team Providers Care Crystal Mounter Name Role Phone Uday Sheehan Primary Care Provider [phone] Encounter Details Date Type Department Care Team (Late st Contact Info) Description 04/29/2024 Lab Requisition [facility] [address] [place] [address] Lidia Barry, CB [address] [place] [address] Acute and chronic respiratory failure with hypoxia; [...] - 10.8 10*3/uL 04/29/2024 1:00 PM EDT [facility] RBC 2.81(L) 4.70 - 6.10 10*6/uL 04/29/2024 1:00 PM EDT [facility] Hemoglobin 7.7(L) 13.7 - 16.5 g/dL 04/29/2024 1:00 PM EDT [facility] Hematocrit 24.5(L) 40.5 - 48.5 % 04/29/2024 1:00 PM EDT [facility] MCV 87.2 80.0 - 94.0 fL 04/29/2024 1:00 PM EDT [facility] MCH 27.4 26.0 - 34.0 pg 04/29/2024 1:00 PM EDT [facility] MCHC 31.4 31.0 - 36.0 g/dL 04/29/2024 1:00 PM EDT [facility] RDW 15.7(H) 12.0 - 15.0 % 04/29/2024 1:00 PM EDT [facility] RDW Standard Deviation 50.7(H) 35.1 - 43.9 fL 04/29/2024 1:00 PM EDT [facility] Platelets 141 140 - 440 10*3/uL 04/29/2024 1:00 PM EDT [facility] MPV 11.0 9.4 - 12.4 fL 04/29/2024 1:00 PM EDT [facility] Neutrophil % 51.9 50.0 - 75.0 % 04/29/2024 1:00 PM EDT [facility] Immature Grans % 0.2 0.0 - 0.9 % 04/29/2024 1:00 PM EDT [facility] Lymphocyte % 26.7 20.0 - 44.0 % 04/29/2024 1:00 PM EDT [facility] Monocyte % 14.3(H) 0.0 - 14.0 % 04/29/2024 1:00 PM EDT [facility] Eosinophil % 6.3(H) 0.0 - 5.0 % 04/29/2024 1:00 PM EDT [facility] Basophil % 0.6 0.0 - 2.0 % 04/29/2024 1:00 PM EDT [facility] Neutrophil # 2.47 1.80 - 7.70 10*3/uL 04/29/2024 1:00 PM EDT [facility] Immature Grans # <0.03 0.00 - 0.03 10*3/uL 04/29/2024 1:00 PM EDT [facility] Lymphocyte # 1.30 1.00 - 4.75 10*3/uL 04/29/2024 1:00 PM EDT [facility] Monocyte # 0.70 0.00 - 6.00 10*3/uL 04/29/2024 1:00 PM EDT [facility] Eosinophil # 0.30 0.00 - 0.80 10*3/uL 04/29/2024 1:00 PM EDT [facility] Basophil # <0.03 0.00 - 0.20 10*3/uL 04/29/2024 1:00 PM EDT [facility] nRBC % 0.0 0 - 0 /100 WBCs 04/29/2024 1:00 PM EDT [facility] nRBC # <0.01 0.00 - 0.13 10*3/uL 04/29/2024 1:00 PM EDT [facility] Blood Structure of peripheral vein / Unknown Venipuncture / Unknown 04/29/2024 12:28 PM EDT 04/29/2024 12:29 PM EDT us Lidia Barry SYSTEM SAFETY ENGINEER LAB BLOOD ORDERABLES Final R esult [facility] [address] [place] [address], * (ABNORMAL) Comprehensive Metabolic Panel (04/29/2024 12:28 PM EDT) NA 140 136 - 145 mmol/L 04/29/2024 1:18 PM EDT [facility] K 3.8 3.5 - 5.1 mmol/L 04/29/2024 1:18 PM EDT [facility] Cl 99 98 - 109 mmol/L 04/29/2024 1:18 PM EDT [facility] CO2 32 22 - 32 mmol/L 04/29/2024 1:18 PM EDT [facility] Anion Gap 13 >=0 04/29/2024 1:18 PM EDT [facility] Glucose 92 60 - 99 mg/dL 04/29/2024 1:18 PM EDT [facility] Creatinine 1.44(H) 0.50 - 1.12 mg/dL 04/29/2024 1:18 PM EDT [facility] Calcium 9.5 8.4 - 10.4 mg/dL 04/29/2024 1:18 PM EDT [facility] Total Protein 6.1(L) 6.6 - 8.7 g/dL 04/29/2024 1:18 PM EDT [facility] Albumin 2.9(L) 3.5 - 5.0 g/dL 04/29/2024 1:18 PM EDT [facility] Bilirubin, Total 0.3 0.2 - 1.2 mg/dL 04/29/2024 1:18 PM EDT [facility] Alkaline Phosphatase 92 40 - 129 U/L 04/29/2024 1:18 PM EDT [facility] AST 43(H) 0 - 40 U/L 04/29/2024 1:18 PM EDT [facility] ALT 43(H) <=41 U/L 04/29/2024 1:18 PM EDT [facility] BUN 40(H) 8 - 23 mg/dL 04/29/2024 1:18 PM EDT [facility] eGFR 48(L) >=60 mL/min/1. 73m2 04/29/2024 1:18 PM EDT [facility] Comment:The estimated glomer ular filtration [...] - 4.2 g/dL 04/29/2024 1:18 PM EDT [facility] A/G Ratio 0.9(L) 1.5 - 3.0 04/29/2024 1:18 PM EDT [facility] Blood Structure of peripheral vein / Unknown Venipuncture / Unknown 04/29/2024 12:28 PM EDT 04/29/2024 12:29 PM EDT [facility] LAB BLOOD ORDERABLES Final R esult [facility] [address] [place] [address] [address] [place] [address], documented in this encounter Visit Diagnoses Diagnosis Acute and chronic respiratory failure with hypoxia (HCC) No diagnosis documented in this encounter Additional Health Concerns Infection Onset Date Last Indicated Resolved Time 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
--- OUTSIDE RECORDS SUMMARY | 2024-11-07 12:15 | XMS_ITS | Encounter Summary ---
Author Organization [facility] Address [address] [place] [address] Care Team Providers Care Automobile Mechanic Name Role Phone Uday Sheehan MD Primary Care Provider Encounter Details Date Type Department Care Team (Late st Contact Info) Description 09/20/2024 Lab Requisition [facility] - Main Lab [address] [place] [address] Tabby Bledsoe MD [address] [address] Bacteremia Social History Tobacco Use Types Packs/Day [...] Associated Diagnosis Comments COMPLETE BLOOD COUNT Routine 09/23/2024 7:46 AM EDT Bacteremia COMPREHENSIVE METABOLIC PANEL Routine 09/23/2024 7:46 AM EDT Bacteremia documented in this encounter Results * (ABNORMAL) Comprehensive metabolic panel (09/23/2024 7:46 AM EDT) Sodium 135 133 - 145 mmol/L LAB CHEMISTRY METHOD 09/23/2024 3:[address] [facility] Potassium 4.3 3.5 - 5.5 mmol/L LAB CHEMISTRY METHOD 09/23/2024 3:19 PM [facility] Chloride 99 96 - 110 mmol/L LAB CHEMISTRY METHOD 09/23/2024 3:19 PM [facility] CO2 30 21 - 32 mmol/L LAB CHEMISTRY METHOD 09/23/2024 3:19 PM [facility] Anion Gap 6 3 - 11 LAB CHEMISTRY METHOD 09/23/2024 3:19 PM [facility] Glucose 96 70 - 100 mg/dL LAB CHEMISTRY METHOD 09/23/2024 3:19 PM [facility] BUN 25 5 - 25 mg/dL LAB CHEMISTRY METHOD 09/23/2024 3:19 PM [facility] Creatinine 1.36(H) 0.70 - 1.30 mg/dL LAB CHEMISTRY METHOD 09/23/2024 3:19 PM [facility] eGFR 51(L) >=60 mL/min/1. 73m2 LAB CHEMISTRY METHOD 09/23/2024 3:19 PM [facility] Comment:Calculation based on the??Chronic Kidney Disease Epidemiology Collaboration (CKD-EPI) equation refit??without adjustment for race. BUN/Creatinine Ratio 18.4 LAB CHEMISTRY METHOD 09/23/2024 3:19 PM [facility] Calcium 8.1(L) 8.5 - 10.5 mg/dL LAB CHEMISTRY METHOD 09/23/2024 3:19 PM [facility] AST (SGOT) 63(H) 10 - 42 unit/L LAB CHEMISTRY METHOD 09/23/2024 3:19 PM [facility] ALT (SGPT) 45 10 - 60 unit/L LAB CHEMISTRY METHOD 09/23/2024 3:19 PM [facility] Alkaline Phosphatase 86 42 - 121 unit/L LAB CHEMISTRY METHOD 09/23/2024 3:19 PM [facility] Total Protein 5.3(L) 6.0 - 8.0 g/dL LAB CHEMISTRY METHOD 09/23/2024 3:[address] [facility] Albumin 1.4(L) 3.2 - 5.0 g/dL LAB CHEMISTRY METHOD 09/23/2024 3:[address] [facility] Total Bilirubin 0.3 0.0 - 1.4 mg/dL LAB CHEMISTRY METHOD 09/23/2024 3:[address] [facility] Blood Venous blood specimen / Unknown Venipuncture / Unknown 09/23/2024 7:46 AM EDT 09/23/2024 11:37 AM EDT us Tabby Bledsoe MD LAB BLOOD ORDERABLES Fin al Result [facility] [address] [place] [address], * (ABNORMAL) Complete blood count (09/23/2024 7:46 AM EDT) WBC 7.1 4.8 - 10.8 K/mcL LAB HEMETOLOGY METHOD 09/23/2024 12:42 PM [facility] RBC 2.60(L) 4.50 - 5.50 M/mcL LAB HEMETOLOGY METHOD 09/23/2024 12:42 PM [facility] Hemoglobin 7.2(L) 13.5 - 17.5 g/dL LAB HEMETOLOGY METHOD 09/23/2024 12:[address] [facility] Hematocrit 23.7(L) 42.0 - 54.0 % LAB HEMETOLOGY METHOD 09/23/2024 12:[address] [facility] MCV 91.5 79.0 - 98.0 FL LAB HEMETOLOGY METHOD 09/23/2024 12:42 PM [facility] MCH 27.8 27.0 - 32.0 pcg LAB HEMETOLOGY METHOD 09/23/2024 12:[address] [facility] MCHC 30.4(L) 32.0 - 37.0 g/dL LAB HEMETOLOGY METHOD 09/23/2024 12:[address] [facility] RDW 16.7(H) 11.0 - 15.0 % LAB HEMETOLOGY METHOD 09/23/2024 12:[address] [facility] Platelets 253 130 - 400 K/mcL LAB HEMETOLOGY METHOD 09/23/2024 12:[address] [facility] MPV 9.4 7.0 - 11.0 FL LAB HEMETOLOGY METHOD 09/23/2024 12:[address] [facility] NRBC 0.0 <1.0 % LAB HEMETOLOGY METHOD 09/23/2024 12:[address] [facility] NRBC Absolute 0.00 <0.10 K/mcL LAB HEMETOLOGY METHOD 09/23/2024 12:[address] [facility] Blood Venous blood specimen / Unknown Venipuncture / Unknown 09/23/2024 7:46 AM EDT 09/23/2024 11:37 AM EDT us Tabby Bledsoe MD LAB BLOOD ORDERABLES Fin al Result [facility] [address] [place] [address], documented in this encounter Visit Diagnoses Diagnosis Bacteremia documented in this encounter Additional Health Concerns Infection Onset Date Last Indicated Resolved Time ESBL 06/22/2024 06/22/2024 documented as of this encounter Care Teams Automobile Mechanic Relationship Specialty Start Date End Date Uday Sheehan MD [address] [place] [address] Dr Thompson [place] PCP - General Parking Regulation Enforcement Officer 12/19/16 documented as of this encounter
--- OUTSIDE RECORDS SUMMARY | 2024-11-07 12:15 | XMS_ITS | Encounter Summary ---
Author Organization [facility] Address [address] [place] [address] Care Team Providers Care Explosive Operator Bomb Name Role Phone Uday Sheehan MD Primary Care Provider [phone] Encounter Details Date Type Department Care Team (Late st Contact Info) Description 09/28/2024 Lab Requisition [facility] - Main Lab [address] [place] [address] Tabby Bledsoe MD [address] [address] Bacteremia Social History Tobacco Use Types Packs/Day [...] Associated Diagnosis Comments COMPLETE BLOOD COUNT Routine 09/30/2024 8:29 AM EDT Bacteremia COMPREHENSIVE METABOLIC PANEL Routine 09/30/2024 8:29 AM EDT Bacteremia documented in this encounter Results * (ABNORMAL) Comprehensive metabolic panel (09/30/2024 8:29 AM EDT) Sodium 135 133 - 145 mmol/L LAB CHEMISTRY METHOD 09/30/2024 11:57 AM EDT [facility] Potassium 4.7 3.5 - 5.5 mmol/L LAB CHEMISTRY METHOD 09/30/2024 11:57 AM [facility] Chloride 98 96 - 110 mmol/L LAB CHEMISTRY METHOD 09/30/2024 11:57 AM [facility] CO2 31 21 - 32 mmol/L LAB CHEMISTRY METHOD 09/30/2024 11:57 AM [facility] Anion Gap 6 3 - 11 LAB CHEMISTRY METHOD 09/30/2024 11:57 AM [facility] Glucose 132(H) 70 - 100 mg/dL LAB CHEMISTRY METHOD 09/30/2024 11:57 AM [facility] BUN 30(H) 5 - 25 mg/dL LAB CHEMISTRY METHOD 09/30/2024 11:57 AM [facility] Creatinine 1.22 0.70 - 1.30 mg/dL LAB CHEMISTRY METHOD 09/30/2024 11:57 AM [facility] eGFR 58(L) >=60 mL/min/1. 73m2 LAB CHEMISTRY METHOD 09/30/2024 11:57 AM [facility] Comment:Calculation based on the??Chronic Kidney Disease Epidemiology Collaboration (CKD-EPI) equation refit??without adjustment for race. BUN/Creatinine Ratio 24.6 LAB CHEMISTRY METHOD 09/30/2024 11:57 AM [facility] Calcium 8.1(L) 8.5 - 10.5 mg/dL LAB CHEMISTRY METHOD 09/30/2024 11:57 AM [facility] AST (SGOT) 45(H) 10 - 42 unit/L LAB CHEMISTRY METHOD 09/30/2024 11:57 AM [facility] ALT (SGPT) 45 10 - 60 unit/L LAB CHEMISTRY METHOD 09/30/2024 11:57 AM [facility] Alkaline Phosphatase 101 42 - 121 unit/L LAB CHEMISTRY METHOD 09/30/2024 11:57 AM [facility] Total Protein 5.5(L) 6.0 - 8.0 g/dL LAB CHEMISTRY METHOD 09/30/2024 11:57 AM T [facility] Albumin 1.4(L) 3.2 - 5.0 g/dL LAB CHEMISTRY METHOD 09/30/2024 11:57 AM EDT [facility] Total Bilirubin 0.3 0.0 - 1.4 mg/dL LAB CHEMISTRY METHOD 09/30/2024 11:57 AM EDT [facility] Blood Venous blood specimen / Unknown Venipuncture / Unknown 09/30/2024 8:29 AM EDT 09/30/2024 10:52 AM EDT us Tabby Bledsoe MD LAB BLOOD ORDERABLES Fin al Result [facility] [address] [place] [address], * (ABNORMAL) Complete blood count (09/30/2024 8:29 AM EDT) WBC 6.7 4.8 - 10.8 K/mcL LAB HEMETOLOGY METHOD 09/30/2024 11:44 AM [facility] RBC 2.40(L) 4.50 - 5.50 M/mcL LAB HEMETOLOGY METHOD 09/30/2024 11:44 AM [facility] Hemoglobin 6.6(L) 13.5 - 17.5 g/dL LAB HEMETOLOGY METHOD 09/30/2024 11:44 AM T [facility] Hematocrit 22.2(L) 42.0 - 54.0 % LAB HEMETOLOGY METHOD 09/30/2024 11:44 AM [facility] MCV 93.7 79.0 - 98.0 FL LAB HEMETOLOGY METHOD 09/30/2024 11:44 AM [facility] MCH 27.8 27.0 - 32.0 pcg LAB HEMETOLOGY METHOD 09/30/2024 11:44 AM EDT [facility] MCHC 29.7(L) 32.0 - 37.0 g/dL LAB HEMETOLOGY METHOD 09/30/2024 11:44 AM EDT [facility] RDW 16.7(H) 11.0 - 15.0 % LAB HEMETOLOGY METHOD 09/30/2024 11:44 AM EDT [facility] Platelets 271 130 - 400 K/mcL LAB HEMETOLOGY METHOD 09/30/2024 11:44 AM EDT [facility] MPV 9.4 7.0 - 11.0 FL LAB HEMETOLOGY METHOD 09/30/2024 11:44 AM EDT [facility] NRBC 0.0 <1.0 % LAB HEMETOLOGY METHOD 09/30/2024 11:44 AM EDT [facility] NRBC Absolute 0.00 <0.10 K/mcL LAB HEMETOLOGY METHOD 09/30/2024 11:44 AM T [facility] Blood Venous blood specimen / Unknown Venipuncture / Unknown 09/30/2024 8:29 AM EDT 09/30/2024 10:52 AM EDT us Tabby Bledsoe MD LAB BLOOD ORDERABLES Fin al Result [facility] [address] [place] [address], documented in this encounter Visit Diagnoses Diagnosis Bacteremia documented in this encounter Additional Health Concerns Infection Onset Date Last Indicated Resolved Time ESBL 06/22/2024 06/22/2024 documented as of this encounter Care Teams Explosive Operator Bomb Relationship Specialty Start Date End Date Uday Sheehan MD [address] [place] [address] Dr [place] PCP - General Mechanical Manufacturing Technician 12/19/16 documented as of this encounter
--- OUTSIDE RECORDS SUMMARY | 2024-11-07 12:15 | XMS_ITS | Encounter Summary ---
Author Organization [facility] Address [address] [place] [address] Care Team Providers Care Metal Burrer Name Role Phone Uday Sheehan MD Primary Care Provider [phone] Encounter Details Date Type Department Care Team (Late st Contact Info) Description 09/25/[address] [facility] - Main Lab [address] [place] [address] Tabby Bledsoe MD [address] [address] Chronic kidney disease, unspecified Social History Tobacco Use Types Packs/Day [...] Procedure Name Priority Date/Time Associated Diagnosis Comments PREALBUMIN Routine 09/25/2024 5:37 AM EDT Chronic kidney disease, unspecified documented in this encounter Results * (ABNORMAL) Prealbumin (09/25/2024 5:37 AM EDT) Prealbumin 10(L) 18 - 45 mg/dL LAB CHEMISTRY METHOD 09/25/2024 3:27 PM EDT [facility] Blood Venous blood specimen / Unknown Venipuncture / Unknown 09/25/2024 5:37 AM EDT 09/25/2024 11:49 AM EDT us Tabby Bledsoe MD LAB BLOOD ORDERABLES Fin al Result [facility] ([facility]) [facility] [address] [place] [address], documented in this encounter Visit Diagnoses Diagnosis Chronic kidney disease, unspecified documented in this encounter Additional Health Concerns Infection Onset Date Last Indicated Resolved Time ESBL 06/22/2024 06/22/2024 documented as of this encounter Care Teams Metal Burrer Relationship Specialty Start Date End Date Uday Sheehan MD [address] [place] [address] Dr Donna [place] PCP - General Ux Engineer 12/19/16 documented as of this encounter
--- OUTSIDE RECORDS SUMMARY | 2024-11-07 12:15 | XMS_ITS | Encounter Summary ---
Author Organization [facility] Address [address] [place] [address] Care Team Providers Care Field Professional Name Role Phone Uday Sheehan MD Primary Care Provider [phone] Encounter Details Date Type Department Care Team (Late st Contact Info) Description 08/05/[address] [facility] - Main Lab [address] [facility] [place] [address] Tabby Bledsoe MD [address] [facility] [address] [place] [address] Urinary tract infection, site not specified Social [...] Escherichia coli(A) [place] 08/07/2024 9:46 AM EST [facility] Comment: This is an edited [...] MICROBIOLOGY - GENER AL ORDERABLES Final Result [facility] [address] [place] [address], * (ABNORMAL) Urinalysis with reflex microscopic and culture (08/03/2024 7:00 AM EST) Pathologist [facility] Specific [place] Urine 1.014 1.003 - 1.030 LAB URINALYSIS - AUTOMATED METHOD 08/05/2024 1:39 PM [facility] pH, Urine 5.5 5.0 - 8.0 pH LAB URINALYSIS - AUTOMATED METHOD 08/05/2024 1:39 PM [facility] Leukocytes, Urine Large(A) Negative LAB URINALYSIS - AUTOMATED METHOD 08/05/2024 1:39 PM [facility] Nitrite, Urine Negative Negative LAB URINALYSIS - AUTOMATED METHOD 08/05/2024 1:39 PM [facility] Protein, Urine 30(A) <=Trace mg/dL LAB URINALYSIS - AUTOMATED METHOD 08/05/2024 1:39 PM [facility] Glucose, Urine Negative Negative mg/dL LAB URINALYSIS - AUTOMATED METHOD 08/05/2024 1:39 PM [facility] Ketones, Urine Negative Negative mg/dL LAB URINALYSIS - AUTOMATED METHOD 08/05/2024 1:39 PM [facility] Urobilinogen , Urine 0.2 0.2 - 1.0 mg/dL LAB URINALYSIS - AUTOMATED METHOD 08/05/2024 1:39 PM [facility] Bilirubin, Urine Negative Negative LAB URINALYSIS - AUTOMATED METHOD 08/05/2024 1:39 PM [facility] Blood, Urine Large(A) Negative LAB URINALYSIS - AUTOMATED METHOD 08/05/2024 1:39 PM [facility] RBC, Urine 271.0(H) 0 - 4 /HPF LAB URINALYSIS - AUTOMATED METHOD 08/05/2024 1:39 PM [facility] WBC, Urine 1,434.7(H) 0 - 4 /HPF LAB URINALYSIS - AUTOMATED METHOD 08/05/2024 1:39 PM [facility] Squamous Epithelial, Urine 41 0 - 60 /LPF LAB URINALYSIS - AUTOMATED METHOD 08/05/2024 1:39 PM [facility] Crystals, Urine MOD CALCIUM OXALATE /LPF LAB URINALYSIS - AUTOMATED METHOD 08/05/2024 1:39 PM [facility] Bacteria, Urine Many(A) Negative /HPF LAB URINALYSIS - AUTOMATED METHOD 08/05/2024 1:39 PM [facility] Hyaline Casts, Urine 8.1(H) 0 - 3 /LPF LAB URINALYSIS - AUTOMATED METHOD 08/05/2024 1:39 PM [facility] Urine Indwelling urinary catheter / Unknown Non-blood Collection / Unknown 08/03/2024 7:00 AM EST 08/05/2024 11:47 AM EST Tabby Bledsoe MD LAB URINE ORDERABLES Fin al Result Performing Organization Address [facility]/ZIP Co de Phone Number [facility] [address] [place] [address], [place] [phone] * Espinoza urine culture tube (08/03/2024 7:00 AM EST) Extra Tube Hold for add-ons. 08/05/2024 1:01 PM [facility] Comment:Auto resulted. Urine Indwelling urinary catheter / Unknown Non-blood Collection / Unknown 08/03/2024 7:00 AM EST 08/05/2024 11:47 AM EST Tabby Bledsoe MD LAB URINE ORDERABLES Fin al Result Performing Organization Address [facility]/ZIP Co de Phone Number [facility] [address] [place] [address], [place] [phone] documented in this encounter Visit Diagnoses Diagnosis Urinary tract infection, site not specified documented in this encounter Additional Health Concerns Infection Onset Date Last Indicated Resolved Time ESBL 06/22/2024 06/22/2024 documented as of this encounter Care Teams Field Professional Relationship Specialty Start Date End Date Uday Sheehan MD [address] [place] [address] Dr [place], [place] PCP - General Smelter Operator 12/19/16 documented as of this encounter
--- OUTSIDE RECORDS SUMMARY | 2024-11-07 12:15 | XMS_ITS | Encounter Summary ---
Author Organization [facility] Address [address] [place] [address] Care Team Providers Care Hammer Driver Name Role Phone Uday Sheehan Primary Care Provider [phone] Encounter Details Date Type Department Care Team (Late st Contact Info) Description 05/06/2024 Lab Requisition [facility] Lab [address] [place] [address] Salo Whyte MD [address] [place] [address] Acute and chronic respiratory failure with hypoxia; [...] of this encounter Procedures * Due to [place] state law, this organization might not be sharing negative HIV tests. Procedure Name Priority Date/Time Associated Diagnosis Comments CBC AUTO DIFFERENTIAL Routine 05/06/2024 10:36 AM EDT Acute and chronic respiratory failure with hypoxia (HCC) No diagnosis COMPREHENSIVE METABOLIC PANEL Routine 05/06/2024 10:36 AM EDT Acute and chronic respiratory failure with hypoxia (HCC) No diagnosis documented in this encounter Results * Due to [place] state law, this organization might not be sharing negative HIV tests. * (ABNORMAL) CBC Auto Differential (05/06/2024 10:36 AM EDT) WBC 5.8 4.8 - 10.8 10*3/uL 05/06/2024 11:12 AM EDT [facility] RBC 3.04(L) 4.70 - 6.10 10*6/uL 05/06/2024 11:12 AM EDT [facility] Hemoglobin 8.4(L) 13.7 - 16.5 g/dL 05/06/2024 11:12 AM EDT [facility] Hematocrit 26.9(L) 40.5 - 48.5 % 05/06/2024 11:12 AM EDT [facility] MCV 88.5 80.0 - 94.0 fL 05/06/2024 11:12 AM EDT [facility] MCH 27.6 26.0 - 34.0 pg 05/06/2024 11:12 AM EDT [facility] MCHC 31.2 31.0 - 36.0 g/dL 05/06/2024 11:12 AM EDT [facility] RDW 16.8(H) 12.0 - 15.0 % 05/06/2024 11:12 AM EDT [facility] RDW Standard Deviation 53.7(H) 35.1 - 43.9 fL 05/06/2024 11:12 AM EDT [facility] Platelets 179 140 - 440 10*3/uL 05/06/2024 11:12 AM EDT [facility] MPV 10.3 9.4 - 12.4 fL 05/06/2024 11:12 AM EDT [facility] Neutrophil % 55.7 50.0 - 75.0 % 05/06/2024 11:12 AM EDT [facility] Immature Grans % 0.3 0.0 - 0.9 % 05/06/2024 11:12 AM EDT [facility] Lymphocyte % 25.6 20.0 - 44.0 % 05/06/2024 11:12 AM EDT [facility] Monocyte % 12.2 0.0 - 14.0 % 05/06/2024 11:12 AM EDT [facility] Eosinophil % 5.7(H) 0.0 - 5.0 % 05/06/2024 11:12 AM EDT [facility] Basophil % 0.5 0.0 - 2.0 % 05/06/2024 11:12 AM EDT [facility] Neutrophil # 3.24 1.80 - 7.70 10*3/uL 05/06/2024 11:12 AM EDT [facility] Immature Grans # <0.03 0.00 - 0.03 10*3/uL 05/06/2024 11:12 AM EDT [facility] Lymphocyte # 1.50 1.00 - 4.75 10*3/uL 05/06/2024 11:12 AM EDT [facility] Monocyte # 0.70 0.00 - 6.00 10*3/uL 05/06/2024 11:12 AM EDT [facility] Eosinophil # 0.30 0.00 - 0.80 10*3/uL 05/06/2024 11:12 AM EDT [facility] Basophil # <0.03 0.00 - 0.20 10*3/uL 05/06/2024 11:12 AM EDT [facility] nRBC % 0.0 0 - 0 /100 WBCs 05/06/2024 11:12 AM EDT [facility] nRBC # <0.01 0.00 - 0.13 10*3/uL 05/06/2024 11:12 AM EDT [facility] Blood Structure of peripheral vein / Unknown Venipuncture / Unknown 05/06/2024 10:36 AM EDT 05/06/2024 10:36 AM EDT Salo Whyte MD LAB BLOOD ORDERABLES Final Result [facility] [address] [place] [address], * (ABNORMAL) Comprehensive Metabolic Panel (05/06/2024 10:36 AM EDT) NA 143 136 - 145 mmol/L 05/06/2024 11:24 AM EDT [facility] K 3.6 3.5 - 5.1 mmol/L 05/06/2024 11:24 AM EDT [facility] Cl 103 98 - 109 mmol/L 05/06/2024 11:24 AM EDT [facility] CO2 29 22 - 32 mmol/L 05/06/2024 11:24 AM EDT [facility] Anion Gap 15 >=0 05/06/2024 11:24 AM EDT [facility] Glucose 93 60 - 99 mg/dL 05/06/2024 11:24 AM EDT [facility] Creatinine 1.63(H) 0.50 - 1.12 mg/dL 05/06/2024 11:24 AM EDT [facility] Calcium 9.2 8.4 - 10.4 mg/dL 05/06/2024 11:24 AM EDT [facility] Total Protein 6.2(L) 6.6 - 8.7 g/dL 05/06/2024 11:24 AM EDT [facility] Albumin 3.0(L) 3.5 - 5.0 g/dL 05/06/2024 11:24 AM EDT [facility] Bilirubin, Total 0.3 0.2 - 1.2 mg/dL 05/06/2024 11:24 AM EDT [facility] Alkaline Phosphatase 102 40 - 129 U/L 05/06/2024 11:24 AM EDT [facility] AST 31 0 - 40 U/L 05/06/2024 11:24 AM EDT [facility] ALT 35 <=41 U/L 05/06/2024 11:24 AM EDT [facility] BUN 35(H) 8 - 23 mg/dL 05/06/2024 11:24 AM EDT [facility] eGFR 41(L) >=60 mL/min/1. 73m2 05/06/2024 11:24 AM EDT [facility] Comment:The estimated glomer ular filtration [...] - 4.2 g/dL 05/06/2024 11:24 AM EDT [facility] A/G Ratio 0.9(L) 1.5 - 3.0 05/06/2024 11:24 AM EDT [facility] Blood Structure of peripheral vein / Unknown Venipuncture / Unknown 05/06/2024 10:36 AM EDT 05/06/2024 10:36 AM EDT Salo Whyte MD LAB BLOOD ORDERABLES Final Result [facility] [address] [place] [address] [address] [place] [address], documented in this encounter Visit Diagnoses Diagnosis Acute and chronic respiratory failure with hypoxia (HCC) No diagnosis documented in this encounter Additional Health Concerns Infection Onset Date Last Indicated Resolved Time 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
--- OUTSIDE RECORDS SUMMARY | 2024-11-07 12:15 | XMS_ITS | Encounter Summary ---
Author Organization [facility] Address [address] [id number] Care Team Providers Care Flask Fitter Name Role Phone Uday Sheehan Primary Care Provider [phone] Encounter Details Date Type Department Care Team (Late st Contact Info) Description 05/07/2024 Lab Requisition [facility] [address] [place] [address] Salo Whyte MD [address] [place] [address] Acute and chronic respiratory failure with hypoxia; [...] of this encounter Procedures * Due to [place] state law, this organization might not be [...] in this encounter Results * Due to [place] state law, this organization might not be sharing negative HIV tests. * (ABNORMAL) Uric Acid (05/07/2024 8:30 AM EDT) Pathologist [facility] Uric Acid 7.3(H) 3.4 - 7.0 mg/dL 05/07/2024 9:23 AM EDT [facility] Blood Structure of peripheral vein / Unknown Venipuncture / Unknown 05/07/2024 8:30 AM EDT 05/07/2024 8:30 AM EDT us Salo Whyte MD LAB BLOOD ORDERABLES Final Result Performing Organization Address [facility]/ZIP Co de Phone Number [facility] [address] [address], [place] [phone] * (ABNORMAL) TSH (05/07/2024 8:30 AM EDT) Pathologist [facility] TSH 9.930(H) 0.270 - 4.200 uIU/mL 05/07/2024 9:23 AM EDT [facility] Blood Structure of peripheral vein / Unknown Venipuncture / Unknown 05/07/2024 8:30 AM EDT 05/07/2024 8:30 AM EDT us Salo Whyte MD LAB BLOOD ORDERABLES Final Result Performing Organization Address [facility] Co de Phone Number [facility] [address] [place] [address], [place] [phone] * T4, Free (05/07/2024 8:30 AM EDT) Free T4 1.35 0.80 - 1.80 ng/dL 05/07/2024 9:23 AM EDT [facility] Comment: Females: (ng/dL) First Trimester [...] BLOOD ORDERABLES Final Result Performing Organization Address City/State/[facility] Co de Phone Number [facility] [address] [facility] [address] [place] [address], documented in this encounter Visit Diagnoses Diagnosis Acute and chronic respiratory failure with hypoxia (HCC) No diagnosis documented in this encounter Additional Health Concerns Infection Onset Date Last Indicated Resolved Time 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
--- OUTSIDE RECORDS SUMMARY | 2024-11-07 12:16 | XMS_ITS | Encounter Summary ---
Author Organization [facility] Address [address] [place] [address] Care Team Providers Care Medical Stenographer Name Role Phone Uday Sheehan MD Primary Care Provider Encounter Details Date Type Department Care Team (Late st Contact Info) Description 09/04/2024 Lab Requisition [facility] - Main Lab 299 [facility] [place] [address] Tabby Bledsoe MD [address] [address] Sequelae of unspecified nutritional deficiency; Encounter for therapeutic drug level monitoring Social History Tobacco Use Types Packs/Day Years [...] Associated Diagnosis Comments COMPLETE BLOOD COUNT Routine 09/04/2024 7:02 AM EST Sequelae of unspecified nutritional deficiency Encounter for therapeutic drug level monitoring VANCOMYCIN, RANDOM Routine 09/04/2024 7: 02 AM EST Sequelae of unspecified nutritional deficiency Encounter for therapeutic drug level monitoring VANCOMYCIN, TROUGH Routine 09/04/2024 7: 02 AM EST Sequelae of unspecified nutritional deficiency Encounter for therapeutic drug level monitoring COMPREHENSIVE METABOLIC PANEL Routine 09/04/2024 7:02 AM EST Sequelae of unspecified nutritional deficiency Encounter for therapeutic drug level monitoring documented in this encounter Results * Vancomycin random (09/04/2024 7:02 AM EST) Pathologist [facility] Vancomycin Rm 18.9 mcg/mL LAB CHEMISTRY METHOD 09/04/2024 12:36 PM EST [facility] Blood Venous blood specimen / Unknown Venipuncture / Unknown 09/04/2024 7:02 AM EST 09/04/2024 9:13 AM EST Tabby Bledsoe MD LAB BLOOD ORDERABLES Fin al Result [facility] [address] [place] [address], [place] [phone] * Vancomycin, trough (09/04/2024 7:02 AM EST) [facility] Vancomycin Trough 19.0 10.0 - 20.0 mcg/mL LAB CHEMISTRY METHOD 09/04/2024 10:59 AM EST [facility] Blood Venous blood specimen / Unknown Venipuncture / Unknown 09/04/2024 7:02 AM EST 09/04/2024 9:13 AM EST Tabby Bledsoe MD LAB BLOOD ORDERABLES Fin al Result Performing Organization Address City/[facility]/ZIP Co de Phone Number [facility] [address] [place] [address], [place] [phone] * (ABNORMAL) Comprehensive metabolic panel (09/04/2024 7:02 AM EST) [facility] Sodium 142 133 - 145 mmol/L LAB CHEMISTRY METHOD 09/04/2024 11:02 AM EST [facility] Potassium 3.9 3.5 - 5.5 mmol/L LAB CHEMISTRY METHOD 09/04/2024 11:02 AM EST [facility] Chloride 107 96 - 110 mmol/L LAB CHEMISTRY METHOD 09/04/2024 11:02 AM [facility] CO2 31 21 - 32 mmol/L LAB CHEMISTRY METHOD 09/04/2024 11:02 AM [facility] Anion Gap 4 3 - 11 LAB CHEMISTRY METHOD 09/04/2024 11:02 AM [facility] Glucose 76 70 - 100 mg/dL LAB CHEMISTRY METHOD 09/04/2024 11:02 AM [facility] BUN 28(H) 5 - 25 mg/dL LAB CHEMISTRY METHOD 09/04/2024 11:02 AM [facility] Creatinine 1.16 0.70 - 1.30 mg/dL LAB CHEMISTRY METHOD 09/04/2024 11:02 AM [facility] eGFR 62 >=60 mL/min/1. 73m2 LAB CHEMISTRY METHOD 09/04/2024 11:02 AM [facility] Comment:Calculation based on the??Chronic Kidney Disease Epidemiology Collaboration (CKD-EPI) equation refit??without adjustment for race. BUN/Creatinine Ratio 24.1 LAB CHEMISTRY METHOD 09/04/2024 11:02 AM [facility] Calcium 8.3(L) 8.5 - 10.5 mg/dL LAB CHEMISTRY METHOD 09/04/2024 11:02 AM [facility] AST (SGOT) 48(H) 10 - 42 unit/L LAB CHEMISTRY METHOD 09/04/2024 11:02 AM [facility] ALT (SGPT) 34 10 - 60 unit/L LAB CHEMISTRY METHOD 09/04/2024 11:02 AM [facility] Alkaline Phosphatase 86 42 - 121 unit/L LAB CHEMISTRY METHOD 09/04/2024 11:02 AM [facility] Total Protein 5.4(L) 6.0 - 8.0 g/dL LAB CHEMISTRY METHOD 09/04/2024 11:02 AM [facility] Albumin 1.3(L) 3.2 - 5.0 g/dL LAB CHEMISTRY METHOD 09/04/2024 11:02 AM [facility] Total Bilirubin 0.4 0.0 - 1.4 mg/dL LAB CHEMISTRY METHOD 09/04/2024 11:02 AM [facility] Blood Venous blood specimen / Unknown Venipuncture / Unknown 09/04/2024 7:02 AM EST 09/04/2024 9:13 AM EST us Tabby Bledsoe MD LAB BLOOD ORDERABLES Fin al Result [facility] [address] [place] [address], * (ABNORMAL) Complete blood count (09/04/2024 7:02 AM EST) WBC 6.6 4.8 - 10.8 K/mcL LAB HEMETOLOGY METHOD 09/04/2024 10:55 AM [facility] RBC 3.10(L) 4.50 - 5.50 M/mcL LAB HEMETOLOGY METHOD 09/04/2024 10:55 AM [facility] Hemoglobin 8.7(L) 13.5 - 17.5 g/dL LAB HEMETOLOGY METHOD 09/04/2024 10:55 AM [facility] Hematocrit 29.7(L) 42.0 - 54.0 % LAB HEMETOLOGY METHOD 09/04/2024 10:55 AM [facility] MCV 95.5 79.0 - 98.0 FL LAB HEMETOLOGY METHOD 09/04/2024 10:55 AM [facility] MCH 28.0 27.0 - 32.0 pcg LAB HEMETOLOGY METHOD 09/04/2024 10:55 AM [facility] MCHC 29.3(L) 32.0 - 37.0 g/dL LAB HEMETOLOGY METHOD 09/04/2024 10:55 AM EST [facility] RDW 17.0(H) 11.0 - 15.0 % LAB HEMETOLOGY METHOD 09/04/2024 10:55 AM EST [facility] Platelets 269 130 - 400 K/mcL LAB HEMETOLOGY METHOD 09/04/2024 10:55 AM EST [facility] MPV 9.5 7.0 - 11.0 FL LAB HEMETOLOGY METHOD 09/04/2024 10:55 AM EST [facility] NRBC 0.0 <1.0 % LAB HEMETOLOGY METHOD 09/04/2024 10:55 AM [facility] NRBC Absolute 0.00 <0.10 K/mcL LAB HEMETOLOGY METHOD 09/04/2024 10:55 AM [facility] Blood Venous blood specimen / Unknown Venipuncture / Unknown 09/04/2024 7:02 AM EST 09/04/2024 9:13 AM EST us Tabby Bledsoe MD LAB BLOOD ORDERABLES Fin al Result [facility] [address] [place] [address], documented in this encounter Visit Diagnoses Diagnosis Sequelae of unspecified nutritional deficiency Encounter for therapeutic drug level monitoring documented in this encounter Additional Health Concerns Infection Onset Date Last Indicated Resolved Time ESBL 06/22/2024 06/22/2024 documented as of this encounter Care Teams Medical Stenographer Relationship Specialty Start Date End Date Uday Sheehan MD [address] [facility] [address] Donna [place] PCP - General Cigar Packer And Grader 12/19/16 documented as of this encounter
--- OUTSIDE RECORDS SUMMARY | 2024-11-07 12:16 | XMS_ITS | Encounter Summary ---
Author Organization [facility] Address [address] [place] [address] Care Team Providers Care Reporting Process Consultant Name Role Phone Uday Sheehan Primary Care Provider [phone] Encounter Details Date Type Department Care Team (Late st Contact Info) Description 03/20/2024 Lab Requisition [facility] Lab [address] [place] [address] Lidia Barry NP [address] [place] [address] Acute and chronic respiratory failure with hypoxia; [...] encounter Procedures * Due to [place] Inter[place] law, this organization might not be sharing negative HIV tests. Procedure Name Priority Date/Time Associated Diagnosis Comments VANCOMYCIN, TROUGH Routine 03/20/2024 7: 13 AM EDT Acute and chronic respiratory failure with hypoxia (HCC) No diagnosis documented in this encounter Results * Due to [place] Inter[place] law, this organization might not be sharing negative HIV tests. * (ABNORMAL) Vancomycin, Trough (03/20/2024 7:13 AM EDT) Vancomycin Trough 21.5(H) 10.0 - 20.0 ug/mL 03/20/2024 7:42 AM EDT [facility] Blood Structure of peripheral vein / Unknown 03/20/2024 7:13 AM EDT 03/20/2024 7:13 AM EDT Lidia Barry SOIL SURVEYOR LAB BLOOD ORDERABLES Final R esult [facility] [address] [place] [address], documented in this encounter Visit Diagnoses Diagnosis [...] documented as of this encounter Care Teams Reporting Process Consultant Relationship Specialty Start Date End Date Uday Sheehan [address] [place] [address] dr Donna [place], ALEC [address] PCP - General Internal Medicine 03/27/24 documented as of this encounter
--- OUTSIDE RECORDS SUMMARY | 2024-11-07 12:16 | XMS_ITS | Encounter Summary ---
Author Organization [facility] Address [address] [place] [address] Care Team Providers Care Information Systems Operator Name Role Phone Uday Sheehan MD Primary Care Provider [phone] Encounter Details Date Type Department Care Team (Late st Contact Info) Description 08/09/2024 Lab Requisition [facility] - Main Lab 299 [facility] [place] [address] Tabby Bledsoe MD [address] [address] Bacteremia Social History Tobacco Use Types Packs/Day [...] documented as of this encounter Care Teams Information Systems Operator Relationship Specialty Start Date End Date Uday Sheehan MD [address] [place] [address] PCP - General Product Safety Consultant 12/19/16 documented as of this encounter
--- OUTSIDE RECORDS SUMMARY | 2024-11-07 12:16 | XMS_ITS | Encounter Summary ---
Author Organization [facility] Address [address] [place] [address] Care Team Providers Care Medical Care Administrator Name Role Phone Uday Sheehan Primary Care Provider [phone] Encounter Details Date Type Department Care Team (Late st Contact Info) Description 05/07/[address] [facility] Department [address] [place] [address] Robert Whyte [address] [address] Acute and chronic respiratory failure with hypoxia; [...] (MRSA)(A) [place] MANUAL 05/09/2024 9:10 AM EDT [facility] Swab Nasal structure / Unknown 05/07/2024 3:33 PM EDT 05/07/2024 4:19 PM EDT [facility] MICROBIOLOGY - GENERAL ORDER KINSEY Final Result [facility] [address] [place] [address] [address] [place] [address], * (ABNORMAL) Respiratory Culture w/Gram Stain (05/07/2024 3:33 PM EDT) Respiratory Culture Moderate Methicillin resistant Staphylococcus aureus (MRSA)(A) MINIMUM INHIBITORY CONCENTRATION ([place]) 05/10/2024 8:39 AM EDT [facility] Gram Stain Result <10 per LPF Epithelial Cells 05/10/2024 8:39 AM EDT [facility] Gram Stain Result >25 per LPF White Blood Cells Seen 05/10/2024 8:39 AM EDT [facility] Gram Stain Result Rare Gram Positive Cocci 05/10/2024 8:39 AM EDT [facility] Gram Stain Result Rare Pleomorphic gram positive rods 05/10/2024 8:39 AM EDT [facility] Sputum Sputum / Unknown 05/07/2024 3:33 PM EDT 05/07/2024 3:33 PM EDT Narrative [facility] - 05/10/2024 8:39 AM EDT Moderate [...] Inducible Clindamycin Resistance has not been found. 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
--- OUTSIDE RECORDS SUMMARY | 2024-11-07 12:16 | XMS_ITS | Encounter Summary ---
Author Organization [facility] Address [address] [place] [address] Care Team Providers Care Oracle Fusion Middleware Architect Name Role Phone Uday Sheehan Primary Care Provider [phone] Encounter Details Date Type Department Care Team (Late st Contact Info) Description 05/07/2024 Lab Requisition [facility] Department [address] [place] [address] Isabell Robert [address] [address] Acute and chronic respiratory failure with hypoxia; [...] as of this encounter Care Teams Oracle Fusion Middleware Architect Relationship Specialty Start Date End Date Uday Sheehan [address] [place] [address] [place] [address] PCP - General Internal Medicine 03/27/24 documented as of this encounter
--- OUTSIDE RECORDS SUMMARY | 2024-11-07 12:16 | XMS_ITS | Encounter Summary ---
Author Organization [facility] Address [address] [place] [address] Care Team Providers Care Labor Relations Representative Name Role Phone Uday Sheehan MD Primary Care Provider [phone] Encounter Details Date Type Department Care Team (Late st Contact Info) Description 09/08/2024 Lab Requisition [facility] - Main Lab 299 [facility] [place] [address] Tabby Bledsoe MD 8[address] [facility] [address] [place], [place] [id number] Bacteremia; Osteomyelitis, unspecified (CMS/HCC V24, CMS/HCC V28) Social History Tobacco Use Types Packs/Day Years [...] Associated Diagnosis Comments COMPLETE BLOOD COUNT Routine 09/09/2024 9:00 AM EST Bacteremia Osteomyelitis, unspecified (CMS/HCC) VANCOMYCIN, TROUGH Routine 09/09/2024 9: 00 AM EST Bacteremia Osteomyelitis, unspecified (CMS/HCC) COMPREHENSIVE METABOLIC PANEL Routine 09/09/2024 9:00 AM EST Bacteremia Osteomyelitis, unspecified (CMS/HCC) documented in this encounter Results * Vancomycin, trough (09/09/2024 9:00 AM EST) [facility] Vancomycin Trough 18.4 10.0 - 20.0 mcg/mL LAB CHEMISTRY METHOD 09/09/2024 1:34 PM [facility] Blood Venous blood specimen / Unknown Venipuncture / Unknown 09/09/2024 9:00 AM EST 09/09/2024 11:09 AM EST us Tabby Bledsoe MD LAB BLOOD ORDERABLES Fin al Result [facility] [address] [place] [address], [place] [phone] * (ABNORMAL) Comprehensive metabolic panel (09/09/2024 9:00 AM EST) [facility] Sodium 142 133 - 145 mmol/L LAB CHEMISTRY METHOD 09/09/2024 1:34 PM [facility] Potassium 3.9 3.5 - 5.5 mmol/L LAB CHEMISTRY METHOD 09/09/2024 1:34 PM [facility] Chloride 105 96 - 110 mmol/L LAB CHEMISTRY METHOD 09/09/2024 1:34 PM [facility] CO2 28 21 - 32 mmol/L LAB CHEMISTRY METHOD 09/09/2024 1:34 PM [facility] Anion Gap 9 3 - 11 LAB CHEMISTRY METHOD 09/09/2024 1:34 PM [facility] Glucose 87 70 - 100 mg/dL LAB CHEMISTRY METHOD 09/09/2024 1:34 PM [facility] BUN 17 5 - 25 mg/dL LAB CHEMISTRY METHOD 09/09/2024 1:34 PM [facility] Creatinine 1.04 0.70 - 1.30 mg/dL LAB CHEMISTRY METHOD 09/09/2024 1:34 PM [facility] eGFR 71 >=60 mL/min/1. 73m2 LAB CHEMISTRY METHOD 09/09/2024 1:34 PM EST [facility] Comment:Calculation based on the??Chronic Kidney Disease Epidemiology Collaboration (CKD-EPI) equation refit??without adjustment for race. BUN/Creatinine Ratio 16.3 LAB CHEMISTRY METHOD 09/09/2024 1:34 PM [facility] Calcium 8.4(L) 8.5 - 10.5 mg/dL LAB CHEMISTRY METHOD 09/09/2024 1:34 PM [facility] AST (SGOT) 20 10 - 42 unit/L LAB CHEMISTRY METHOD 09/09/2024 1:34 PM [facility] ALT (SGPT) 17 10 - 60 unit/L LAB CHEMISTRY METHOD 09/09/2024 1:34 PM [facility] Alkaline Phosphatase 96 42 - 121 unit/L LAB CHEMISTRY METHOD 09/09/2024 1:34 PM [facility] Total Protein 5.8(L) 6.0 - 8.0 g/dL LAB CHEMISTRY METHOD 09/09/2024 1:34 PM [facility] Albumin 1.5(L) 3.2 - 5.0 g/dL LAB CHEMISTRY METHOD 09/09/2024 1:34 PM [facility] Total Bilirubin 0.3 0.0 - 1.4 mg/dL LAB CHEMISTRY METHOD 09/09/2024 1:34 PM [facility] Blood Venous blood specimen / Unknown Venipuncture / Unknown 09/09/2024 9:00 AM EST 09/09/2024 11:09 AM EST us Tabby Bledsoe MD LAB BLOOD ORDERABLES Fin al Result [facility] [address] [place] [address], * (ABNORMAL) Complete blood count (09/09/2024 9:00 AM EST) WBC 6.9 4.8 - 10.8 K/mcL LAB HEMETOLOGY METHOD 09/09/2024 1:45 PM [facility] RBC 3.30(L) 4.50 - 5.50 M/mcL LAB HEMETOLOGY METHOD 09/09/2024 1:45 PM [facility] Hemoglobin 9.1(L) 13.5 - 17.5 g/dL LAB HEMETOLOGY METHOD 09/09/2024 1:45 PM [facility] Hematocrit 30.6(L) 42.0 - 54.0 % LAB HEMETOLOGY METHOD 09/09/2024 1:45 PM [facility] MCV 93.3 79.0 - 98.0 FL LAB HEMETOLOGY METHOD 09/09/2024 1:45 PM [facility] MCH 27.7 27.0 - 32.0 pcg LAB HEMETOLOGY METHOD 09/09/2024 1:45 PM [facility] MCHC 29.7(L) 32.0 - 37.0 g/dL LAB HEMETOLOGY METHOD 09/09/2024 1:45 PM [facility] RDW 15.8(H) 11.0 - 15.0 % LAB HEMETOLOGY METHOD 09/09/2024 1:45 PM [facility] Platelets 259 130 - 400 K/mcL LAB HEMETOLOGY METHOD 09/09/2024 1:45 PM [facility] MPV 9.4 7.0 - 11.0 FL LAB HEMETOLOGY METHOD 09/09/2024 1:45 PM [facility] NRBC 0.0 <1.0 % LAB HEMETOLOGY METHOD 09/09/2024 1:45 PM [facility] NRBC Absolute 0.00 <0.10 K/mcL LAB HEMETOLOGY METHOD 09/09/2024 1:45 PM [facility] Blood Venous blood specimen / Unknown Venipuncture / Unknown 09/09/2024 9:00 AM EST 09/09/2024 11:09 AM EST us Tabby Bledsoe MD LAB BLOOD ORDERABLES Fin al Result [facility] [address] [place] [address], documented in this encounter Visit Diagnoses Diagnosis Bacteremia Osteomyelitis, unspecified (CMS[facility] V24, CMS/[facility] V28) documented in this encounter Additional Health Concerns Infection Onset Date Last Indicated Resolved Time ESBL 06/22/2024 06/22/2024 documented as of this encounter Care Teams Labor Relations Representative Relationship Specialty Start Date End Date Uday Sheehan MD [address] [place] [address] Dr Donna [place] PCP - General Biofuels Plant Operations Engineer 12/19/16 documented as of this encounter
--- OUTSIDE RECORDS SUMMARY | 2024-11-07 12:16 | XMS_ITS | Encounter Summary ---
Author Organization [facility] Address [address] [place] [address] Care Team Providers Care Welder Apprentice Arc Name Role Phone Uday Sheehan Primary Care Provider [phone] Encounter Details Date Type Department Care Team (Late st Contact Info) Description 05/13/2024 Lab Requisition [facility] [address] [place] [address] Salo Whyte MD [address] [place] [address] Acute and chronic respiratory failure with hypoxia; [...] 4.70 - 6.10 10*6/uL 05/13/2024 10:06 AM EST [facility] Hemoglobin 8.3(L) 13.7 - 16.5 g/dL 05/13/2024 10:06 AM EST [facility] Hematocrit 26.0(L) 40.5 - 48.5 % 05/13/2024 10:06 AM EST [facility] MCV 86.4 80.0 - 94.0 fL 05/13/2024 10:06 AM EST [facility] MCH 27.6 26.0 - 34.0 pg 05/13/2024 10:06 AM [facility] MCHC 31.9 31.0 - 36.0 g/dL 05/13/2024 10:06 AM [facility] RDW 16.8(H) 12.0 - 15.0 % 05/13/2024 10:06 AM [facility] RDW Standard Deviation 53.1(H) 35.1 - 43.9 fL 05/13/2024 10:06 AM [facility] Platelets 143 140 - 440 10*3/uL 05/13/2024 10:06 AM EST [facility] MPV 10.6 9.4 - 12.4 fL 05/13/2024 10:06 AM [facility] Neutrophil % 57.3 50.0 - 75.0 % 05/13/2024 10:06 AM [facility] Immature Grans % 0.2 0.0 - 0.9 % 05/13/2024 10:06 AM [facility] Lymphocyte % 26.4 20.0 - [...] ORDERABLES Final Result Performing Organization Address City/State/[facility] Co de Phone Number [facility] [address] [place] [address], [place] [phone] * (ABNORMAL) Comprehensive Metabolic Panel (05/13/2024 9:32 [...] 22 - 32 mmol/L 05/13/2024 10:36 AM [facility] Anion Gap 13 >=0 05/13/2024 10:36 AM [facility] Glucose 118(H) 60 - 99 mg/dL 05/13/2024 10:36 AM [facility] Creatinine 1.73(H) 0.50 - 1.12 mg/dL 05/13/2024 10:36 AM [facility] Calcium 9.5 8.4 - 10.4 mg/dL 05/13/2024 10:36 AM [facility] Total Protein 6.1(L) 6.6 - 8.7 g/dL 05/13/2024 10:36 AM [facility] Albumin 3.0(L) 3.5 - 5.0 g/dL 05/13/2024 10:36 AM [facility] Bilirubin, Total 0.4 0.2 - 1.2 mg/dL 05/13/2024 10:36 AM [facility] Alkaline Phosphatase 102 40 - 129 U/L 05/13/2024 10:36 AM [facility] AST 18 0 - 40 U/L 05/13/2024 10:36 AM [facility] ALT 17 <=41 U/L 05/13/2024 10:36 AM [facility] BUN 36(H) 8 - 23 mg/dL 05/13/2024 10:36 AM [facility] eGFR 38(L) >=60 mL/min/1. 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
--- OUTSIDE RECORDS SUMMARY | 2024-11-07 12:16 | XMS_ITS | Encounter Summary ---
Author Organization [facility] Address [address] [place] [address] Care Team Providers Care Design Supervisor Name Role Phone Uday Sheehan Primary Care Provider [phone] Encounter Details Date Type Department Care Team (Late st Contact Info) Description 04/09/2024 Lab Requisition [facility] [address] [place] [address] Salo Whyte MD [address] [place] [address] Acute respiratory failure with hypoxia; No diagnosis Social [...] encounter Procedures * Due to [place] state law, this organization might not be [...] encounter Results * Due to [place] state law, this organization might not be sharing negative HIV tests. * N-terminal ProBrain Natriuretic Peptide - [facility] Only (04/09/2024 8:51 AM EDT) Pro-B-Type Natriuretic Peptide 523 <=1,800 pg/mL 04/09/2024 9:31 AM EDT [facility] Comment: RULE IN CHF >/= [...] BLOOD ORDERABLES Final Result Performing Organization Address City/[facility]/ZIP Co de Phone Number [facility] [address] [address], [place] [phone] * Vitamin B12 (04/09/2024 8:51 AM EDT) Vitamin B12 636 232 - 1,245 pg/mL 04/09/2024 9:42 AM EDT [facility] Blood Structure of peripheral vein / Unknown Venipuncture / Unknown 04/09/2024 8:51 AM EDT 04/09/2024 8:52 AM EDT us Salo Whyte MD LAB BLOOD ORDERABLES Final Result Performing Organization Address [facility] Co de Phone Number [facility] [address] [address], [place] [phone] * (ABNORMAL) CBC Auto Differential (04/09/2024 8:51 AM EDT) Pathologist [facility] WBC 8.3 4.8 - 10.8 10*3/uL 04/09/2024 9:14 AM EDT [facility] RBC 2.86(L) 4.70 - 6.10 10*6/uL 04/09/2024 9:14 AM EDT [facility] Hemoglobin 8.0(L) 13.7 - 16.5 g/dL 04/09/2024 9:14 AM EDT [facility] Hematocrit 25.7(L) 40.5 - 48.5 % 04/09/2024 9:14 AM EDT [facility] MCV 89.9 80.0 - 94.0 fL 04/09/2024 9:14 AM EDT [facility] MCH 28.0 26.0 - 34.0 pg 04/09/2024 9:14 AM EDT [facility] MCHC 31.1 31.0 - 36.0 g/dL 04/09/2024 9:14 AM EDT [facility] RDW 17.2(H) 12.0 - 15.0 % 04/09/2024 9:14 AM EDT [facility] RDW Standard Deviation 54.8(H) 35.1 - 43.9 fL 04/09/2024 9:14 AM EDT [facility] Platelets 228 140 - 440 10*3/uL 04/09/2024 9:14 AM EDT [facility] MPV 10.8 9.4 - 12.4 fL 04/09/2024 9:14 AM EDT [facility] Neutrophil % 58.2 50.0 - 75.0 % 04/09/2024 9:14 AM EDT [facility] Immature Grans % 0.7 0.0 - 0.9 % 04/09/2024 9:14 AM EDT [facility] Lymphocyte % 22.1 20.0 - 44.0 % 04/09/2024 9:14 AM EDT [facility] Monocyte % 11.3 0.0 - 14.0 % 04/09/2024 9:14 AM EDT [facility] Eosinophil % 7.1(H) 0.0 - 5.0 % 04/09/2024 9:14 AM EDT [facility] Basophil % 0.6 0.0 - 2.0 % 04/09/2024 9:14 AM EDT [facility] Neutrophil # 4.85 1.80 - 7.70 10*3/uL 04/09/2024 9:14 AM EDT [facility] Immature Grans # 0.06(H) 0.00 - 0.03 10*3/uL 04/09/2024 9:14 AM EDT [facility] Lymphocyte # 1.80 1.00 - 4.75 10*3/uL 04/09/2024 9:14 AM EDT [facility] Monocyte # 0.90 0.00 - 6.00 10*3/uL 04/09/2024 9:14 AM EDT [facility] Eosinophil # 0.60 0.00 - 0.80 10*3/uL 04/09/2024 9:14 AM EDT [facility] Basophil # 0.10 0.00 - 0.20 10*3/uL 04/09/2024 9:14 AM EDT [facility] nRBC % 0.0 0 - 0 /100 WBCs 04/09/2024 9:14 AM EDT [facility] nRBC # <0.01 0.00 - 0.13 10*3/uL 04/09/2024 9:14 AM EDT [facility] Blood Structure of peripheral vein / Unknown Venipuncture / Unknown 04/09/2024 8:51 AM EDT 04/09/2024 8:52 AM EDT Salo Whyte MD LAB BLOOD ORDERABLES Final Result Performing Organization Address City/[facility]/ZIP Co de Phone Number [facility] [address] [address], [place] [phone] * (ABNORMAL) TSH (04/09/2024 8:51 AM EDT) TSH 10.800(H) 0.270 - 4.200 uIU/mL 04/09/2024 9:34 AM EDT [facility] Blood Structure of peripheral vein / Unknown Venipuncture / Unknown 04/09/2024 8:51 AM EDT 04/09/2024 8:52 AM EDT Salo Whyte MD LAB BLOOD ORDERABLES Final Result Performing Organization Address City/[facility]/ZIP Co de Phone Number [facility] [address] [address], [place] [phone] * T4, Free (04/09/2024 8:51 AM EDT) Free T4 1.40 0.80 - 1.80 ng/dL 04/09/2024 9:34 AM EDT [facility] Comment: Females: (ng/dL) First Trimester [...] BLOOD ORDERABLES Final Result Performing Organization Address [facility]/ZIP Co de Phone Number [facility] [address] [address], [place] [phone] * Magnesium (04/09/2024 8:51 AM EDT) MG 2.5 1.5 - 2.5 mg/dL 04/09/2024 9:34 AM EDT [facility] Blood Structure of peripheral vein / Unknown Venipuncture / Unknown 04/09/2024 8:51 AM EDT 04/09/2024 8:52 AM EDT Salo Whyte MD LAB BLOOD ORDERABLES Final Result [facility] [address] [address], [place] [phone] * Hemoglobin A1c (04/09/2024 8:51 AM EDT) Hemoglobin A1c 5.6 4.0 - 5.7 % 04/09/2024 9:25 AM EDT [facility] Estimated Average Glucose 114 mg/dL 04/09/2024 9:25 AM EDT [facility] Blood Structure of peripheral vein / Unknown Venipuncture / Unknown 04/09/2024 8:51 AM EDT 04/09/2024 8:52 AM EDT Salo Whyte MD LAB BLOOD ORDERABLES Final Result Performing Organization Address [facility]/ZIP Co de Phone Number [facility] [address] [address], [place] [phone] * Ammonia (04/09/2024 8:51 AM EDT) Ammonia 20 16 - 60 umol/L 04/09/2024 9:24 AM EDT [facility] Blood Structure of peripheral vein / Unknown Venipuncture / Unknown 04/09/2024 8:51 AM EDT 04/09/2024 8:52 AM EDT Salo Whyte MD LAB BLOOD ORDERABLES Final Result Performing Organization Address [facility] de Phone Number [facility] [address] [address], [place] [phone] * (ABNORMAL) Comprehensive Metabolic Panel (04/09/2024 8:51 AM EDT) NA 144 136 - 145 mmol/L 04/09/2024 9:34 AM EDT [facility] K 4.0 3.5 - 5.1 mmol/L 04/09/2024 9:34 AM EDT [facility] Cl 104 98 - 109 mmol/L 04/09/2024 9:34 AM EDT [facility] CO2 32 22 - 32 mmol/L 04/09/2024 9:34 AM EDT [facility] Anion Gap 12 >=0 04/09/2024 9:34 AM EDT [facility] Glucose 96 60 - 99 mg/dL 04/09/2024 9:34 AM EDT [facility] Creatinine 1.30(H) 0.50 - 1.12 mg/dL 04/09/2024 9:34 AM EDT [facility] Calcium 9.7 8.4 - 10.4 mg/dL 04/09/2024 9:34 AM T [facility] Total Protein 6.8 6.6 - 8.7 g/dL 04/09/2024 9:34 AM [facility] Albumin 3.1(L) 3.5 - 5.0 g/dL 04/09/2024 9:34 AM T [facility] Bilirubin, Total 0.2 0.2 - 1.2 mg/dL 04/09/2024 9:34 AM [facility] Alkaline Phosphatase 85 40 - 129 U/L 04/09/2024 9:34 AM [facility] AST 40 0 - 40 U/L 04/09/2024 9:34 AM [facility] ALT 28 <=41 U/L 04/09/2024 9:34 AM [facility] BUN 56(H) 8 - 23 mg/dL 04/09/2024 9:34 AM [facility] eGFR 54(L) >=60 mL/min/1. 73m2 04/09/2024 9:34 AM [facility] Comment:The estimated glomer ular filtration rate (eGFR) is calculated using a new formula developed by the [facility]-ASN task force to eliminate race-based correction factors. The new formula uses serum/plasma creatinine, age, and gender to determine eGFR. A value below 60mls/min might indicate kidney disease and will be flagged. For additional information, see Juarez et al, Am J Kidney Dis. 2021;79(2):268- 288, A Unifying Approach for GFR estimation: Recommendations of the [facility]-ASN Task Force on Reassessing the Inclusion of Race in Diagnosing Kidney Disease . Globulin, Total 3.7 2.1 - 4.2 g/dL 04/09/2024 9:34 AM [facility] A/G Ratio 0.8(L) 1.5 - 3.0 04/09/2024 9:34 AM EDT [facility] Blood Structure of peripheral vein / Unknown Venipuncture / Unknown 04/09/2024 8:51 AM EDT 04/09/2024 8:52 AM EDT Salo Whyte MD LAB BLOOD ORDERABLES Final Result [facility] [address] [place] [address], documented in this encounter Visit Diagnoses Diagnosis Acute respiratory failure with hypoxia (HCC) No diagnosis documented in this encounter Additional Health Concerns Infection Onset Date Last Indicated Resolved Time Multidrug resistant organisms MRSA 03/25/20242023 documented as of this encounter Care Teams Design Supervisor Relationship Specialty Start Date End Date Uday Sheehan [address] [place] [address] [place] [address] PCP - General Internal Medicine 03/27/24 documented as of this encounter
--- OUTSIDE RECORDS SUMMARY | 2024-11-07 12:16 | XMS_ITS | Encounter Summary ---
Author Organization [facility] Address [address] [place] [address] Care Team Providers Care Tire Shop Manager Name Role Phone Uday Sheehan MD Primary Care Provider [phone] Encounter Details Date Type Department Care Team (Late st Contact Info) Description 07/15/2024 Lab Requisition [facility] [address] [facility] [place] [address] Tabby Bledsoe MD [address] [facility] [address] [place], [place] [id number] Essential (primary) hypertension; Hypothyroidism, unspecified; Unspecified atrial fibrillation (CMS/HCC V24, CMS/HCC V28) Social History Tobacco [...] mmol/L LAB CHEMISTRY METHOD 07/16/2024 10:45 AM [facility] Potassium 3.6 3.5 - 5.5 mmol/L LAB CHEMISTRY METHOD 07/16/2024 10:45 AM [facility] Chloride 110 96 - 110 mmol/L LAB CHEMISTRY METHOD 07/16/2024 10:45 AM [facility] CO2 31 21 - 32 mmol/L LAB CHEMISTRY METHOD 07/16/2024 10:45 AM [facility] Anion Gap 4 3 - 11 LAB CHEMISTRY METHOD 07/16/2024 10:45 AM [facility] Glucose 107(H) 70 - 100 mg/dL LAB CHEMISTRY METHOD 07/16/2024 10:45 AM [facility] BUN 29(H) 5 - 25 mg/dL LAB CHEMISTRY METHOD 07/16/2024 10:45 AM [facility] Creatinine 1.79(H) 0.70 - 1.30 mg/dL LAB CHEMISTRY METHOD 07/16/2024 10:45 AM [facility] eGFR 37(L) >=60 mL/min/1. 73m2 LAB CHEMISTRY METHOD 07/16/2024 10:45 AM [facility] Comment:Calculation based on the??Chronic Kidney Disease Epidemiology Collaboration (CKD-EPI) equation refit??without adjustment for race. BUN/Creatinine Ratio 16.2 LAB CHEMISTRY METHOD 07/16/2024 10:45 AM [facility] Calcium 9.9 8.5 - 10.5 mg/dL LAB CHEMISTRY METHOD 07/16/2024 10:45 AM [facility] AST (SGOT) 20 10 - 42 unit/L LAB CHEMISTRY METHOD 07/16/2024 10:45 AM [facility] ALT (SGPT) 12 10 - 60 unit/L LAB CHEMISTRY METHOD 07/16/2024 10:45 AM [facility] Alkaline Phosphatase 106 42 - 121 unit/L LAB CHEMISTRY METHOD 07/16/2024 10:45 AM EST [facility] Total Protein 6.0 6.0 - 8.0 g/dL LAB CHEMISTRY METHOD 07/16/2024 10:45 AM [facility] Albumin 1.6(L) 3.2 - 5.0 g/dL LAB CHEMISTRY METHOD 07/16/2024 10:45 AM [facility] Total Bilirubin 0.4 0.0 - 1.4 mg/dL LAB CHEMISTRY METHOD 07/16/2024 10:45 AM [facility] Blood Venous blood specimen / Unknown Venipuncture / Unknown 07/16/2024 5:50 AM EST 07/16/2024 9:42 AM EST us Tabby Bledsoe MD LAB BLOOD ORDERABLES Fin al Result [facility] [address] [place] [address], [place] [phone] * (ABNORMAL) Complete blood count (07/16/2024 5:50 AM EST) WBC 6.0 4.8 - 10.8 K/mcL LAB HEMETOLOGY METHOD 07/16/2024 9:59 AM [facility] RBC 2.90(L) 4.50 - 5.50 M/mcL LAB HEMETOLOGY METHOD 07/16/2024 9:59 AM [facility] Hemoglobin 7.5(L) 13.5 - 17.5 g/dL LAB HEMETOLOGY METHOD 07/16/2024 9:59 AM [facility] Hematocrit 25.1(L) 42.0 - 54.0 % LAB HEMETOLOGY METHOD 07/16/2024 9:59 AM [facility] MCV 86.9 79.0 - 98.0 FL LAB HEMETOLOGY METHOD 07/16/2024 9:59 AM EST [facility] MCH 26.0(L) 27.0 - 32.0 pcg LAB HEMETOLOGY METHOD 07/16/2024 9:59 AM EST [facility] MCHC 29.9(L) 32.0 - 37.0 g/dL LAB HEMETOLOGY METHOD 07/16/2024 9:59 AM EST [facility] RDW 19.1(H) 11.0 - 15.0 % LAB HEMETOLOGY METHOD 07/16/2024 9:59 AM EST [facility] Platelets 247 130 - 400 K/mcL LAB HEMETOLOGY METHOD 07/16/2024 9:59 AM [facility] MPV 9.7 7.0 - 11.0 FL LAB HEMETOLOGY METHOD 07/16/2024 9:59 AM EST [facility] NRBC 0.0 <1.0 % LAB HEMETOLOGY METHOD 07/16/2024 9:59 AM [facility] NRBC Absolute 0.00 <0.10 K/mcL LAB HEMETOLOGY METHOD 07/16/2024 9:59 AM [facility] Blood Venous blood specimen / Unknown Venipuncture / Unknown 07/16/2024 5:50 AM EST 07/16/2024 9:42 AM EST us Tabby Bledsoe MD LAB BLOOD ORDERABLES Fin al Result [facility] [address] [place] [address], documented in this encounter Visit Diagnoses Diagnosis Essential (primary) hypertension Unspecified essential hypertension Hypothyroidism, unspecified Unspecified atrial fibrillation (CMS/HCC V24, CMS/HCC V28) documented in this encounter Additional Health Concerns Infection Onset Date Last Indicated Resolved Time ESBL 06/22/2024 06/22/2024 documented as of this encounter Care Teams Tire Shop Manager Relationship Specialty Start Date End Date Uday Sheehan MD [address] [address] Donna [place] PCP - General Webbing Weaver 12/19/16 documented as of this encounter
--- OUTSIDE RECORDS SUMMARY | 2024-11-07 12:16 | XMS_ITS | Encounter Summary ---
Author Organization [facility] Address [address] [place] [address] Care Team Providers Care Grain Elevator Operator Name Role Phone Uday Sheehan Primary Care Provider [phone] Encounter Details Date Type Department Care Team (Late st Contact Info) Description 05/18/2024 Lab Requisition [facility] [address] [place] [address] No diagnosis Social History Tobacco Use Types [...] as of this encounter Care Teams Grain Elevator Operator Relationship Specialty Start Date End Date Uday Sheehan [address] [place] [address] [place] [address] PCP - General Internal Medicine 03/27/24 documented as of this encounter
--- OUTSIDE RECORDS SUMMARY | 2024-11-07 12:16 | XMS_ITS | Encounter Summary ---
Author Organization [facility] Address [address] [place] [address] Care Team Providers Care Shoe Reconditioner Name Role Phone Uday Sheehan Primary Care Provider Encounter Details Date Type Department Care Team (Late st Contact Info) Description 03/27/2024 Lab Requisition [facility] [address] [place] [address] Lidia Barry, CB [address] [place] [address] Acute and chronic respiratory failure with hypoxia; [...] encounter Procedures * Due to [place] state law, this organization might not [...] encounter Results * Due to [place] state law, this organization might not be sharing negative HIV tests. * (ABNORMAL) Manual Differential (03/27/2024 8:19 AM EDT) Neutrophil %, Manual 53 50 - 75 % 03/27/2024 9:04 AM EDT [facility] Lymphocyte %, Manual 33 33 - 54 % 03/27/2024 9:04 AM EDT [facility] Monocyte %, Manual 10 0 - 14 % 03/27/2024 9:04 AM EDT [facility] Eosinophil %, Manual 3 0 - 5 % 03/27/2024 9:04 AM EDT [facility] Basophil %, Manual 0 0 - 2 % 03/27/2024 9:04 AM EDT [facility] Plasma Cells % 1(H) 0 % 03/27/2024 9:04 AM EDT [facility] Total Neutrophil #, Manual 4.13 1.80 - 7.70 10*3/uL 03/27/2024 9:04 AM EDT [facility] Total Lymph #, Manual 2.57 1.00 - 4.75 10*3/uL 03/27/2024 9:04 AM EDT [facility] Monocyte #, Manual 0.78 0.00 - 6.00 10*3/uL 03/27/2024 9:04 AM EDT [facility] Eosinophil #, Manual 0.23 0.00 - 0.80 10*3/uL 03/27/2024 9:04 AM EDT [facility] Basophil #, Manual 0.00 0.00 - 0.20 10*3/uL 03/27/2024 9:04 AM EDT [facility] Plasma Cell # 0.08(H) 0.00 10*3/uL 09/18/202 4 9:04 AM EDT [facility] Platelet Estimate Adequate Adequate 03/27/2024 9:04 AM EDT [facility] Clumped Platelets Present(A) Not Present 03/27/2024 9:04 AM EDT [facility] RBC Morphology Present(A) Normal, No clinically significant RBC morphology present (ICSH guidelines, 2015). 03/27/2024 9:04 AM EDT [facility] Polychromasia 1+(A) Not Present 03/27/2024 9:04 AM EDT [facility] Ovalocytes 1+(A) Not Present 03/27/2024 9:04 AM EDT [facility] [place] Cells 1+(A) Not Present 03/27/2024 9:04 AM EDT [facility] Total Cells Counted 116 03/27/2024 9:04 AM EDT [facility] Blood Structure of peripheral vein / Unknown Venipuncture / Unknown 03/27/2024 8:19 AM EDT 03/27/2024 8:19 AM EDT us Lidia Barry NETWORK TECHNICAL ANALYST LAB BLOOD ORDERABLES Final R esult Performing Organization Address City/State/[facility] Co de Phone Number [facility] [address] [place] [address], * (ABNORMAL) CBC Auto Differential (03/27/2024 8:19 AM EDT) WBC 7.8 4.8 - 10.8 10*3/uL 03/27/2024 9:04 AM EDT [facility] RBC 3.02(L) 4.70 - 6.10 10*6/uL 03/27/2024 9:04 AM EDT [facility] Hemoglobin 8.4(L) 13.7 - 16.5 g/dL 03/27/2024 9:04 AM EDT [facility] Hematocrit 25.7(L) 40.5 - 48.5 % 03/27/2024 9:04 AM EDT [facility] MCV 85.1 80.0 - 94.0 fL 03/27/2024 9:04 AM EDT [facility] Comment:REVIEWED MCH 27.8 26.0 - 34.0 pg 03/27/2024 9:04 AM EDT [facility] MCHC 32.7 31.0 - 36.0 g/dL 03/27/2024 9:04 AM EDT [facility] RDW 16.2(H) 12.0 - 15.0 % 03/27/2024 9:04 AM EDT [facility] RDW Standard Deviation 48.9(H) 35.1 - 43.9 fL 03/27/2024 9:04 AM EDT [facility] Platelets 192 140 - 440 10*3/uL 03/27/2024 9:04 AM EDT [facility] MPV 10.5 9.4 - 12.4 fL 03/27/2024 9:04 AM EDT [facility] nRBC % 0.0 0 - 0 /100 WBCs 03/27/2024 9:04 AM EDT [facility] nRBC # <0.01 0.00 - 0.13 10*3/uL 03/27/2024 9:04 AM EDT [facility] Blood Structure of peripheral vein / Unknown Venipuncture / Unknown 03/27/2024 8:19 AM EDT 03/27/2024 8:19 AM EDT Lidia Barry NETWORK TECHNICAL ANALYST LAB BLOOD ORDERABLES Final R esult [facility] [address] [facility] [address] [place] [address], * (ABNORMAL) Comprehensive Metabolic Panel (03/27/2024 8:19 AM EDT) NA 139 136 - 145 mmol/L 03/27/2024 9:02 AM EDT [facility] K 03/27/2024 9:02 AM EDT [facility] Comment:Unable to result due to Hemolysis Cl 99 98 - 109 mmol/L 03/27/2024 9:02 AM EDT [facility] CO2 32 23 - 32 mmol/L 03/27/2024 9:02 AM EDT [facility] Anion Gap 03/27/2024 9:02 AM EDT [facility] Comment:Unable to result due to Hemolysis Glucose 121(H) 60 - 99 mg/dL 03/27/2024 9:02 AM EDT [facility] Creatinine 0.88 0.50 - 1.12 mg/dL 03/27/2024 9:02 AM EDT [facility] Calcium 8.8 8.4 - 10.4 mg/dL 03/27[facility]24 [facility] Total Protein 6.6 6.6 - 8.7 g/dL 03/27/2024 9:02 AM [facility] Albumin 2.8(L) 3.5 - 5.0 g/dL 03/27/2024 9[facility] Bilirubin, Total 0.4 0.2 - 1.2 mg/dL 03/27/2024 9[facility] Alkaline Phosphatase 89 40 - 129 U/L 03/27/2024 9:02 AM [facility] AST 03/27/2024 9:02 [facility] Comment:Unable to result due to Hemolysis ALT 03/27/2024 9:[facility] Comment:Unable to result due to Hemolysis BUN 17 8 - 23 mg/dL 03/27/2024 9:[facility] eGFR 85 >=60 mL/min/1. 73m2 03/27/2024 9:02 [facility] Comment:The estimated glomer ular filtration [...] - 4.2 g/dL 03/27/2024 9:02 AM EDT [facility] A/G Ratio 0.7(L) 1.5 - 3.0 03/27/2024 9:02 AM EDT [facility] Blood Structure of peripheral vein / Unknown Venipuncture / Unknown 03/27/2024 8:19 AM EDT 03/27/2024 8:19 AM EDT us Lidia Barry [employer] TE[employer]NALY[employer] LAB BLOOD ORDERABLES Final R esult Performing Organization Address City/State/[facility] Co de Phone Number [facility] [address] [place] [id number], documented in this encounter Visit Diagnoses Diagnosis [...] documented as of this encounter Care Teams Shoe Reconditioner Relationship Specialty Start Date End Date Uday Sheehan [address] [place] [address] [place] [id number] PCP - General Internal Medicine 03/27/24 documented as of this encounter
--- OUTSIDE RECORDS SUMMARY | 2024-11-07 12:16 | XMS_ITS | Encounter Summary ---
Author Organization [facility] Address [address] [place] [address] Care Team Providers Care Kier Pleater Name Role Phone Uday Sheehan MD Primary Care Provider [phone] Encounter Details Date Type Department Care Team (Late st Contact Info) Description 06/07/2024 Lab Requisition [facility] - Main Lab [address] [facility] [place] [address] Zak Zuluaga MD [address] [place], [place] [id number] Unspecified atrial fibrillation (CMS/HCC V24, CMS/HCC V28); Essential (primary) hypertension Social History Tobacco Use [...] mmol/L LAB CHEMISTRY METHOD 06/10/2024 9:35 AM [facility] Potassium 4.2 3.5 - 5.5 mmol/L LAB CHEMISTRY METHOD 06/10/2024 9:35 AM [facility] Chloride 112(H) 96 - 110 mmol/L LAB CHEMISTRY METHOD 06/10/2024 9:35 AM [facility] CO2 25 21 - 32 mmol/L LAB CHEMISTRY METHOD 06/10/2024 9:35 AM [facility] Anion Gap 7 3 - 11 LAB CHEMISTRY METHOD 06/10/2024 9:35 AM [facility] Glucose 84 70 - 100 mg/dL LAB CHEMISTRY METHOD 06/10/2024 9:35 AM [facility] BUN 41(H) 5 - 25 mg/dL LAB CHEMISTRY METHOD 06/10/2024 9:35 AM [facility] Creatinine 2.66(H) 0.70 - 1.30 mg/dL LAB CHEMISTRY METHOD 06/10/2024 9:35 AM [facility] eGFR 23(L) >=60 mL/min/1. 73m2 LAB CHEMISTRY METHOD 06/10/2024 9:35 AM [facility] Comment:Calculation based on the??Chronic Kidney Disease Epidemiology Collaboration (CKD-EPI) equation refit??without adjustment for race. BUN/Creatinine Ratio 15.4 LAB CHEMISTRY METHOD 06/10/2024 9:35 AM [facility] Calcium 7.8(L) 8.5 - 10.5 mg/dL LAB CHEMISTRY METHOD 06/10/2024 9:35 AM [facility] AST (SGOT) 262(H) 10 - 42 unit/L LAB CHEMISTRY METHOD 06/10/2024 9:35 AM [facility] ALT (SGPT) 146(H) 10 - 60 unit/L LAB CHEMISTRY METHOD 06/10/2024 9:35 AM [facility] Alkaline Phosphatase 94 42 - 121 unit/L LAB CHEMISTRY METHOD 06/10/2024 9:35 AM [facility] Total Protein 5.1(L) 6.0 - 8.0 g/dL LAB CHEMISTRY METHOD 06/10/2024 9:35 AM [facility] Albumin 1.6(L) 3.2 - 5.0 g/dL LAB CHEMISTRY METHOD 06/10/2024 9:35 AM [facility] Total Bilirubin 0.4 0.0 - 1.4 mg/dL LAB CHEMISTRY METHOD 06/10/2024 9:35 AM [facility] Blood Venous blood specimen / Unknown Venipuncture / Unknown 06/10/2024 6:43 AM EST 06/10/2024 8:01 AM EST us Zak Zuluaga MD LAB BLOOD ORDERABLES Final Resul t [facility] [address] [place] [address], [place] [phone] * (ABNORMAL) Complete blood count (06/10/2024 6:43 AM EST) WBC 4.7(L) 4.8 - 10.8 K/mcL LAB HEMETOLOGY METHOD 06/10/2024 8:36 AM [facility] RBC 2.40(L) 4.50 - 5.50 M/mcL LAB HEMETOLOGY METHOD 06/10/2024 8:36 AM [facility] Hemoglobin 6.3(LL) 13.5 - 17.5 g/dL LAB HEMETOLOGY METHOD 06/10/2024 8:36 AM [facility] Hematocrit 21.0(L) 42.0 - 54.0 % LAB HEMETOLOGY METHOD 06/10/2024 8:36 AM [facility] MCV 88.0 79.0 - 98.0 FL LAB HEMETOLOGY METHOD 06/10/2024 8:36 AM EST [facility] MCH 26.0(L) 27.0 - 32.0 pcg LAB HEMETOLOGY METHOD 06/10/2024 8:36 AM EST [facility] MCHC 29.6(L) 32.0 - 37.0 g/dL LAB HEMETOLOGY METHOD 06/10/2024 8:36 AM EST [facility] RDW 17.1(H) 11.0 - 15.0 % LAB HEMETOLOGY METHOD 06/10/2024 8:36 AM EST [facility] Platelets 169 130 - 400 K/mcL LAB HEMETOLOGY METHOD 06/10/2024 8:36 AM [facility] MPV 10.3 7.0 - 11.0 FL LAB HEMETOLOGY METHOD 06/10/2024 8:36 AM EST [facility] NRBC 0.0 <1.0 % LAB HEMETOLOGY METHOD 06/10/2024 8:36 AM [facility] NRBC Absolute 0.00 <0.10 K/mcL LAB HEMETOLOGY METHOD 06/10/2024 8:36 AM [facility] Blood Venous blood specimen / Unknown Venipuncture / Unknown 06/10/2024 6:43 AM EST 06/10/2024 8:01 AM EST us Zak Zuluaga MD LAB BLOOD ORDERABLES Final Resul t [facility] [address] [place] [address], documented in this encounter Visit Diagnoses Diagnosis Unspecified atrial fibrillation (CMS/HCC V24, CMS/HCC V28) Essential (primary) hypertension Unspecified essential hypertension documented in this encounter Additional Health Concerns Infection Onset Date Last Indicated Resolved Time ESBL 06/22/2024 06/22/2024 documented as of this encounter Care Teams Kier Pleater Relationship Specialty Start Date End Date Uday Sheehan MD [address] [place] PCP - General Roller Man 12/19/16 documented as of this encounter
--- OUTSIDE RECORDS SUMMARY | 2024-11-07 12:16 | XMS_ITS | Encounter Summary ---
Author Organization [facility] Address [address] [place] [address] Care Team Providers Care Staff Cytotechnologist Name Role Phone Uday Sheehan Primary Care Provider [phone] Encounter Details Date Type Department Care Team (Late st Contact Info) Description 03/29/2024 Orders Only [facility] [address] [place] [address] Vasquez Quintanilla MD [address] [place] [address] Social History Tobacco Use Types Packs/Day Years [...] documented as of this encounter Care Teams Staff Cytotechnologist Relationship Specialty Start Date End Date Uday Sheehan [address] [place] [address] [place] [address] PCP - General Internal Medicine 03/27/24 documented as of this encounter
--- OUTSIDE RECORDS SUMMARY | 2024-11-07 12:16 | XMS_ITS | Encounter Summary ---
Author Organization [facility] Address [address] [place] [address] Phone Care Team Providers Care Scratcher Tender Name Role Phone Uday Sheehan MD Primary Care Provider [phone] Encounter Details Date Type Department Care Team (Late st Contact Info) Description 04/20/2022 Documentation Only [facility] [address] [place] [address] Adi Jaeger MD [address] [place] [address] [place] [address] Social History Tobacco Use Types Packs/Day Years [...] on filedocumented in this encounter Care Teams Scratcher Tender Relationship Specialty Start Date End Date Uday Sheehan MD [address] [place] [address] [address] ALEC RING PCP - General 05/14/19 documented as of this encounter
--- OUTSIDE RECORDS SUMMARY | 2024-11-07 12:16 | XMS_ITS | Encounter Summary ---
Author Organization [facility] Address [address] [place] [address] Care Team Providers Care Surface Grinder Tender Name Role Phone Uday Sheehan Primary Care Provider [phone] Encounter Details Date Type Department Care Team (Late st Contact Info) Description 03/23/2024 Lab Requisition [facility] [address] [place] [address] Valarie Pierson MD [address] [place] [address] Acute and chronic respiratory failure with hypoxia; [...] this encounter Procedures * Due to [place] [employer] law, this organization might not be sharing negative HIV tests. Procedure Name Priority Date/Time Associated Diagnosis Comments VANCOMYCIN, TROUGH Routine 03/23/2024 5: 30 AM EDT Acute and chronic respiratory failure with hypoxia (HCC) No diagnosis documented in this encounter Results * Due to [place] [employer] law, this organization might not be sharing negative HIV tests. * Vancomycin, Trough (03/23/2024 5:30 AM EDT) Vancomycin Trough 15.6 10.0 - 20.0 ug/mL 03/23/2024 11:45 AM EDT [facility] Blood Structure of peripheral vein / Unknown Venipuncture / Unknown 03/23/2024 5:30 AM EDT 03/23/2024 9:17 AM EDT us Valarie Pierson MD LAB BLOOD ORDERABLES Final Res ult [facility] [address] [place] [address], documented in this encounter Visit Diagnoses Diagnosis [...] documented as of this encounter Care Teams Surface Grinder Tender Relationship Specialty Start Date End Date Uday Sheehan [address] [place] [address] [place] [address] PCP - General Internal Medicine 03/27/24 documented as of this encounter
--- OUTSIDE RECORDS SUMMARY | 2024-11-07 12:16 | XMS_ITS | Encounter Summary ---
Author Organization [facility] Address [address] [place] [address] Care Team Providers Care Pin Chaser Name Role Phone Uday Sheehan MD Primary Care Provider [phone] Encounter Details Date Type Department Care Team (Late st Contact Info) Description 09/15/2024 Lab Requisition [facility] - Main Lab [address] [facility] [place] [address] Tabby Bledsoe MD [address] [address] Bacteremia Social History Tobacco Use Types Packs/Day [...] documented as of this encounter Care Teams Pin Chaser Relationship Specialty Start Date End Date Uday Sheehan MD [address] [place] [address] PCP - General Sanitarian Inspector 12/19/16 documented as of this encounter
--- OUTSIDE RECORDS SUMMARY | 2024-11-07 12:16 | XMS_ITS | Encounter Summary ---
Author Organization [facility] Address [address] [place] [address] Care Team Providers Care Plant Operator Control Room Operator Name Role Phone Uday Sheehan Primary Care Provider [phone] Encounter Details Date Type Department Care Team (Late st Contact Info) Description 04/11/2024 Lab Requisition [facility] Lab [address] [place] [address] Salo Whyte MD [address] [place] [address] Acute and chronic respiratory failure with hypoxia; [...] - 10.8 10*3/uL 04/11/2024 11:04 AM EDT [facility] RBC 2.95(L) 4.70 - 6.10 10*6/uL 04/11/2024 11:04 AM EDT [facility] Hemoglobin 8.0(L) 13.7 - 16.5 g/dL 04/11/2024 11:04 AM EDT [facility] Hematocrit 26.3(L) 40.5 - 48.5 % 04/11/2024 11:04 AM EDT [facility] MCV 89.2 80.0 - 94.0 fL 04/11/2024 11:04 AM EDT [facility] MCH 27.1 26.0 - 34.0 pg 04/11/2024 11:04 AM EDT [facility] MCHC 30.4(L) 31.0 - 36.0 g/dL 04/11/2024 11:04 AM EDT [facility] RDW 17.3(H) 12.0 - 15.0 % 04/11/2024 11:04 AM EDT [facility] RDW Standard Deviation 54.4(H) 35.1 - 43.9 fL 04/11/2024 11:04 AM EDT [facility] Platelets 226 140 - 440 10*3/uL 04/11/2024 11:04 AM EDT [facility] MPV 10.2 9.4 - 12.4 fL 04/11/2024 11:04 AM EDT [facility] Neutrophil % 62.6 50.0 - 75.0 % 04/11/2024 11:04 AM EDT [facility] Immature Grans % 0.8 0.0 - 0.9 % 04/11/2024 11:04 AM EDT [facility] Lymphocyte % 21.4 20.0 - 44.0 % 04/11/2024 11:04 AM EDT [facility] Monocyte % 10.4 0.0 - 14.0 % 04/11/2024 11:04 AM EDT [facility] Eosinophil % 4.3 0.0 - 5.0 % 04/11/2024 11:04 AM EDT [facility] Basophil % 0.5 0.0 - 2.0 % 04/11/2024 11:04 AM EDT [facility] Neutrophil # 5.02 1.80 - 7.70 10*3/uL 04/11/2024 11:04 AM EDT [facility] Immature Grans # 0.06(H) 0.00 - 0.03 10*3/uL 04/11/2024 11:04 AM EDT [facility] Lymphocyte # 1.70 1.00 - 4.75 10*3/uL 04/11/2024 11:04 AM EDT [facility] Monocyte # 0.80 0.00 - 6.00 10*3/uL 04/11/2024 11:04 AM EDT [facility] Eosinophil # 0.30 0.00 - 0.80 10*3/uL 04/11/2024 11:04 AM EDT [facility] Basophil # <0.03 0.00 - 0.20 10*3/uL 04/11/2024 11:04 AM EDT [facility] nRBC % 0.0 0 - 0 /100 WBCs 04/11/2024 11:04 AM EDT [facility] nRBC # <0.01 0.00 - 0.13 10*3/uL 04/11/2024 11:04 AM EDT [facility] Blood Structure of peripheral vein / Unknown Venipuncture / Unknown 04/11/2024 10:41 AM EDT 04/11/2024 10:41 AM EDT Salo Whyte MD LAB BLOOD ORDERABLES Final Result [facility] [address] [place] [address], * (ABNORMAL) Basic Metabolic Panel (04/11/2024 10:41 AM EDT) NA 141 136 - 145 mmol/L 04/11/2024 11:19 AM EDT [facility] K 3.8 3.5 - 5.1 mmol/L 04/11/2024 11:19 AM EDT [facility] Cl 100 98 - 109 mmol/L 04/11/2024 11:19 AM EDT [facility] CO2 32 22 - 32 mmol/L 04/11/2024 11:19 AM EDT [facility] BUN 45(H) 8 - 23 mg/dL 04/11/2024 11:19 AM EDT [facility] Creatinine 1.10 0.50 - 1.12 mg/dL 04/11/2024 11:19 AM EDT [facility] Glucose 106(H) 60 - 99 mg/dL 04/11/2024 11:19 AM EDT [facility] Calcium 9.3 8.4 - 10.4 mg/dL 04/11/2024 11:19 AM EDT [facility] Anion Gap 13 >=0 04/11/2024 11:19 AM EDT [facility] eGFR 66 >=60 mL/min/1. 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
--- OUTSIDE RECORDS SUMMARY | 2024-11-07 12:16 | XMS_ITS | Encounter Summary ---
Author Organization [facility] Address [address] [place] [address] Care Team Providers Care Supervisor Residential Name Role Phone Uday Sheehan MD Primary Care Provider [phone] Encounter Details Date Type Department Care Team (Late st Contact Info) Description 06/03/2024 Lab Requisition [facility] - Main Lab [address] [facility] [place] [address] Zak Zuluaga MD [address] [place] [address] Hypothyroidism, unspecified; Essential (primary) hypertension; Unspecified atrial fibrillation (CMS/HCC V24, CMS/HCC V28) [...] CHEMISTRY METHOD 06/03/2024 1:08 PM EST [facility] Blood Venous blood specimen / Unknown Venipuncture / Unknown 06/03/2024 8:12 AM EST 06/03/2024 9:23 AM EST Zak Zuluaga MD LAB BLOOD ORDERABLES Final Resul t Performing Organization Address City/[facility]/ZIP Co de Phone Number [facility] [address] [place] [address], [place] [phone] * Free thyroxine with reflex to free triiodothyronine (06/03/2024 8:12 AM EST) Free T4 1.24 0.70 - 1.80 ng/dL LAB CHEMISTRY METHOD 06/03/2024 12:42 PM EST [facility] Blood Venous blood specimen / Unknown Venipuncture / Unknown 06/03/2024 8:12 AM EST 06/03/2024 9:23 AM EST us Zak Zuluaga MD LAB BLOOD ORDERABLES Final Resul t Performing Organization Address City/[facility]/ZIP Co de Phone Number [facility] [address] [place] [address], [place] [phone] * (ABNORMAL) Thyroid stimulating hormone with reflex to free t4 and free t3 (06/03/2024 8:12 AM EST) TSH 5.71(H) 0.40 - 4.00 mcIU/mL LAB CHEMISTRY METHOD 06/03/2024 12:17 PM [facility] Blood Venous blood specimen / Unknown Venipuncture / Unknown 06/03/2024 8:12 AM EST 06/03/2024 9:23 AM EST us Zak Zuluaga MD LAB BLOOD ORDERABLES Final Resul t [facility] [address] [place] [address], * (ABNORMAL) Comprehensive metabolic panel (06/03/2024 8:12 AM EST) Pathologist [facility] Sodium 145 133 - 145 mmol/L LAB CHEMISTRY METHOD 06/03/2024 12:11 PM [facility] Potassium 3.9 3.5 - 5.5 mmol/L LAB CHEMISTRY METHOD 06/03/2024 12:11 PM [facility] Chloride 110 96 - 110 mmol/L LAB CHEMISTRY METHOD 06/03/2024 12:11 PM [facility] CO2 28 21 - 32 mmol/L LAB CHEMISTRY METHOD 06/03/2024 12:11 PM [facility] Anion Gap 7 3 - 11 LAB CHEMISTRY METHOD 06/03/2024 12:11 PM [facility] Glucose 83 70 - 100 mg/dL LAB CHEMISTRY METHOD 06/03/2024 12:11 PM [facility] BUN 40(H) 5 - 25 mg/dL LAB CHEMISTRY METHOD 06/03/2024 12:11 PM [facility] Creatinine 2.47(H) 0.70 - 1.30 mg/dL LAB CHEMISTRY METHOD 06/03/2024 12:11 PM [facility] eGFR 25(L) >=60 mL/min/1. 73m2 LAB CHEMISTRY METHOD 06/03/2024 12:11 PM [facility] Comment:Calculation based on the??Chronic Kidney Disease Epidemiology Collaboration (CKD-EPI) equation refit??without adjustment for race. BUN/Creatinine Ratio 16.2 LAB CHEMISTRY METHOD 06/03/2024 12:11 PM [facility] Calcium 8.1(L) 8.5 - 10.5 mg/dL LAB CHEMISTRY METHOD 06/03/2024 12:11 PM [facility] AST (SGOT) 19 10 - 42 unit/L LAB CHEMISTRY METHOD 06/03/2024 12:11 PM [facility] ALT (SGPT) 17 10 - 60 unit/L LAB CHEMISTRY METHOD 06/03/2024 12:11 PM [facility] Alkaline Phosphatase 81 42 - 121 unit/L LAB CHEMISTRY METHOD 06/03/2024 12:11 PM [facility] Total Protein 5.4(L) 6.0 - 8.0 g/dL LAB CHEMISTRY METHOD 06/03/2024 12:11 PM [facility] Albumin 1.9(L) 3.2 - 5.0 g/dL LAB CHEMISTRY METHOD 06/03/2024 12:11 PM [facility] Total Bilirubin 0.4 0.0 - 1.4 mg/dL LAB CHEMISTRY METHOD 06/03/2024 12:11 PM [facility] Blood Venous blood specimen / Unknown Venipuncture / Unknown 06/03/2024 8:12 AM EST 06/03/2024 9:23 AM EST us Zak Zuluaga MD LAB BLOOD ORDERABLES Final Resul t [facility] [address] [place] [address], [place] [phone] * (ABNORMAL) Complete blood count (06/03/2024 8:12 AM EST) [facility] WBC 6.6 4.8 - 10.8 K/mcL LAB HEMETOLOGY METHOD 06/03/2024 10:42 AM [facility] RBC 2.70(L) 4.50 - 5.50 M/mcL LAB HEMETOLOGY METHOD 06/03/2024 10:42 AM [facility] Hemoglobin 7.2(L) 13.5 - 17.5 g/dL LAB HEMETOLOGY METHOD 06/03/2024 10:42 AM [facility] Hematocrit 23.7(L) 42.0 - 54.0 % LAB HEMETOLOGY METHOD 06/03/2024 10:42 AM [facility] MCV 89.1 79.0 - 98.0 FL LAB HEMETOLOGY METHOD 06/03/2024 10:42 AM [facility] MCH 27.1 27.0 - 32.0 pcg LAB HEMETOLOGY METHOD 06/03/2024 10:42 AM [facility] MCHC 30.4(L) 32.0 - 37.0 g/dL LAB HEMETOLOGY METHOD 06/03/2024 10:42 AM [facility] RDW 16.7(H) 11.0 - 15.0 % LAB HEMETOLOGY METHOD 06/03/2024 10:42 AM [facility] Platelets 145 130 - 400 K/mcL LAB HEMETOLOGY METHOD 06/03/2024 10:42 AM [facility] MPV 10.4 7.0 - 11.0 FL LAB HEMETOLOGY METHOD 06/03/2024 10:42 AM [facility] NRBC 0.0 <1.0 % LAB HEMETOLOGY METHOD 06/03/2024 10:42 AM [facility] NRBC Absolute 0.00 <0.10 [facility] LAB HEMETOLOGY METHOD 06/03/2024 10:42 AM EST [facility] Blood Venous blood specimen / Unknown Venipuncture / Unknown 06/03/2024 8:12 AM EST 06/03/2024 9:23 AM EST us Zak Zuluaga MD LAB BLOOD ORDERABLES Final Resul t [facility] [address] [place] [address], documented in this encounter Visit Diagnoses Diagnosis Hypothyroidism, unspecified Essential (primary) hypertension Unspecified essential hypertension Unspecified atrial fibrillation (CMS/HCC V24, CMS/HCC V28) documented in this encounter Additional Health Concerns Infection Onset Date Last Indicated Resolved Time ESBL 06/22/2024 06/22/2024 documented as of this encounter Care Teams Supervisor Residential Relationship Specialty Start Date End Date Uday Sheehan MD [address] [place] [address] Dr Donna [place] PCP - General Podiatrist Assistant 12/19/16 documented as of this encounter
--- OUTSIDE RECORDS SUMMARY | 2024-11-07 12:16 | XMS_ITS | Encounter Summary ---
Author Organization [facility] Address [address] [place] [address] Care Team Providers Care Planning Official Name Role Phone Uday Sheehan Primary Care Provider [phone] Encounter Details Date Type Department Care Team (Late st Contact Info) Description 05/18/2024 Lab Requisition [facility] [address] [place] [address] Valarie Pierson MD [address] [place] [address] Acute and chronic respiratory failure with hypoxia; [...] this encounter Procedures * Due to [place] [employer] law, this organization might not be sharing negative HIV tests. Procedure Name Priority Date/Time Associated Diagnosis Comments BASIC METABOLIC PANEL Routine 05/18/2024 6:18 AM EST Acute and chronic respiratory failure with hypoxia (HCC) No diagnosis documented in this encounter Results * Due to [place] [employer] law, this organization might not be sharing negative HIV tests. * (ABNORMAL) Basic Metabolic Panel (05/18/2024 6:18 AM EST) NA 143 136 - 145 mmol/L 05/18/2024 10:44 AM EST [facility] K 3.9 3.5 - 5.1 mmol/L 05/18/2024 10:44 AM EST [facility] Cl 104 98 - 109 mmol/L 05/18/2024 10:44 AM EST [facility] CO2 29 22 - 32 mmol/L 05/18/2024 10:44 AM EST [facility] BUN 33(H) 8 - 23 mg/dL 05/18/2024 10:44 AM EST [facility] Creatinine 1.70(H) 0.50 - 1.12 mg/dL 05/18/2024 10:44 AM [facility] Glucose 102(H) 60 - 99 mg/dL 05/18/2024 10:44 AM EST [facility] Calcium 9.3 8.4 - 10.4 mg/dL 05/18/2024 10:44 AM EST [facility] Anion Gap 14 >=0 05/18/2024 10:44 AM EST [facility] eGFR 39(L) >=60 mL/min/1. 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
--- OUTSIDE RECORDS SUMMARY | 2024-11-07 12:16 | XMS_ITS | Encounter Summary ---
Author Organization [facility] Address [address] [place] [address] Care Team Providers Care Industrial Safety And Health Specialist Name Role Phone Uday Sheehan MD Primary Care Provider [phone] Encounter Details Date Type Department Care Team (Late st Contact Info) Description 06/05/2024 Lab Requisition [facility] - Main Lab [address] [place] [address] Natanael Rodney MD [address] [place] [address] [place] [address] Chronic kidney disease, [...] AM EST) WBC 7.2 4.8 - 10.8 [facility] LAB HEMETOLOGY METHOD 06/05/2024 11:10 AM EST [facility] ([facility] LAB RBC 2.70(L) 4.50 - 5.50 M/mcL LAB HEMETOLOGY METHOD 06/05/2024 11:10 AM [facility] LAB Hemoglobin 7.3(L) 13.5 - 17.5 g/dL LAB HEMETOLOGY METHOD 06/05/2024 11:10 AM [facility] LAB Hematocrit 23.8(L) 42.0 - 54.0 % LAB HEMETOLOGY METHOD 06/05/2024 11:10 AM [facility] LAB MCV 87.8 79.0 - 98.0 FL LAB HEMETOLOGY METHOD 06/05/2024 11:10 AM [facility] LAB MCH 26.9(L) 27.0 - 32.0 pcg LAB HEMETOLOGY METHOD 06/05/2024 11:10 AM [facility] LAB MCHC 30.7(L) 32.0 - 37.0 g/dL LAB HEMETOLOGY METHOD 06/05/2024 11:10 AM [facility] LAB RDW 16.7(H) 11.0 - 15.0 % LAB HEMETOLOGY METHOD 06/05/2024 11:10 AM [facility] LAB Platelets 172 130 - 400 K/mcL LAB HEMETOLOGY METHOD 06/05/2024 11:10 AM [facility] LAB MPV 10.1 7.0 - 11.0 FL LAB HEMETOLOGY METHOD 06/05/2024 11:10 AM [facility] LAB NRBC 0.0 <1.0 % LAB HEMETOLOGY METHOD 06/05/2024 11:10 AM [facility] LAB NRBC Absolute 0.00 <0.10 K/mcL LAB HEMETOLOGY METHOD 06/05/2024 11:10 AM [facility] LAB Blood Venous blood specimen / Unknown Venipuncture / Unknown 06/05/2024 8:53 AM EST 06/05/2024 10:47 AM EST us Natanael Rodney MD LAB BLOOD ORDERABLES Final Resu lt [facility] ([facility]) [facility] LAB [address] [place] [address], documented in this encounter Visit Diagnoses Diagnosis Chronic kidney disease, unspecified Essential (primary) hypertension Unspecified essential hypertension Unspecified atrial fibrillation (CMS/HCC V24, CMS/HCC V28) documented in this encounter Additional Health Concerns Infection Onset Date Last Indicated Resolved Time ESBL 06/22/2024 06/22/2024 documented as of this encounter Care Teams Industrial Safety And Health Specialist Relationship Specialty Start Date End Date Uday Sheehan MD [address] [place] [address] Dr Donna [place] PCP - General Car Worker 12/19/16 documented as of this encounter
--- OUTSIDE RECORDS SUMMARY | 2024-11-07 12:16 | XMS_ITS | Encounter Summary ---
Author Organization [facility] Address [address] [place] [address] Care Team Providers Care Cardiology Nurse Name Role Phone Uday Sheehan MD Primary Care Provider [phone] Encounter Details Date Type Department Care Team (Late st Contact Info) Description 07/27/2024 Lab Requisition [facility] - Main Lab [address] [place] [address] Tabby Bledsoe MD [address] [address] Bacteremia Social History Tobacco Use Types Packs/Day [...] LAB CHEMISTRY METHOD 07/29/2024 2:40 PM EST [facility] LAB Potassium 3.6 3.5 - 5.5 mmol/L LAB CHEMISTRY METHOD 07/29/2024 2:40 PM [facility] LAB Chloride 105 96 - 110 mmol/L LAB CHEMISTRY METHOD 07/29/2024 2:40 PM [facility] LAB CO2 29 21 - 32 mmol/L LAB CHEMISTRY METHOD 07/29/2024 2:40 PM [facility] LAB Anion Gap 7 3 - 11 LAB CHEMISTRY METHOD 07/29/2024 2:40 PM [facility] LAB Glucose 98 70 - 100 mg/dL LAB CHEMISTRY METHOD 07/29/2024 2:40 PM [facility] LAB BUN 26(H) 5 - 25 mg/dL LAB CHEMISTRY METHOD 07/29/2024 2:40 PM [facility] LAB Creatinine 2.26(H) 0.70 - 1.30 mg/dL LAB CHEMISTRY METHOD 07/29/2024 2:40 PM [facility] LAB eGFR 28(L) >=60 mL/min/1. 73m2 LAB CHEMISTRY METHOD 07/29/2024 2:40 PM [facility] LAB Comment:Calculation based on the??Chronic Kidney Disease Epidemiology Collaboration (CKD-EPI) equation refit??without adjustment for race. BUN/Creatinine Ratio 11.5 LAB CHEMISTRY METHOD 07/29/2024 2:40 PM [facility] LAB Calcium 8.5 8.5 - 10.5 mg/dL LAB CHEMISTRY METHOD 07/29/2024 2:40 PM [facility] LAB AST (SGOT) 15 10 - 42 unit/L LAB CHEMISTRY METHOD 07/29/2024 2:40 PM [facility] LAB ALT (SGPT) 8(L) 10 - 60 unit/L LAB CHEMISTRY METHOD 07/29/2024 2:40 PM [facility] LAB Alkaline Phosphatase 93 42 - 121 unit/L LAB CHEMISTRY METHOD 07/29/2024 2:40 PM [facility] LAB Total Protein 5.5(L) 6.0 - 8.0 g/dL LAB CHEMISTRY METHOD 07/29/2024 2:40 PM [facility] LAB Albumin 1.5(L) 3.2 - 5.0 g/dL LAB CHEMISTRY METHOD 07/29/2024 2:40 PM [facility] LAB Total Bilirubin 0.2 0.0 - 1.4 mg/dL LAB CHEMISTRY METHOD 07/29/2024 2:40 PM [facility] LAB Blood Venous blood specimen / Unknown Venipuncture / Unknown 07/29/2024 10:02 AM EST 07/29/2024 12:19 PM EST us Tabby Bledsoe MD LAB BLOOD ORDERABLES Fin al Result [facility] LAB [address] [place] [address], [place] [phone] * (ABNORMAL) Complete blood count (07/29/2024 10:02 AM EST) WBC 6.7 4.8 - 10.8 K/mcL LAB HEMETOLOGY METHOD 07/29/2024 2:00 PM [facility] LAB RBC 2.80(L) 4.50 - 5.50 M/mcL LAB HEMETOLOGY METHOD 07/29/2024 2:00 PM [facility] LAB Hemoglobin 7.3(L) 13.5 - 17.5 g/dL LAB HEMETOLOGY METHOD 07/29/2024 2:00 PM [facility] LAB Hematocrit 25.3(L) 42.0 - 54.0 % LAB HEMETOLOGY METHOD 07/29/2024 2:00 PM [facility] LAB MCV 90.0 79.0 - 98.0 FL LAB HEMETOLOGY METHOD 07/29/2024 2:00 PM [facility] LAB MCH 26.0(L) 27.0 - 32.0 pcg LAB HEMETOLOGY METHOD 07/29/2024 2:00 PM [facility] LAB MCHC 28.9(L) 32.0 - 37.0 g/dL LAB HEMETOLOGY METHOD 07/29/2024 2:00 PM [facility] LAB RDW 19.8(H) 11.0 - 15.0 % LAB HEMETOLOGY METHOD 07/29/2024 2:00 PM [facility] LAB Platelets 240 130 - 400 K/mcL LAB HEMETOLOGY METHOD 07/29/2024 2:00 PM [facility] LAB MPV 9.5 7.0 - 11.0 FL LAB HEMETOLOGY METHOD 07/29/2024 2:00 PM [facility] LAB NRBC 0.0 <1.0 % LAB HEMETOLOGY METHOD 07/29/2024 2:00 PM [facility] LAB NRBC Absolute 0.00 <0.10 K/mcL LAB HEMETOLOGY METHOD 07/29/2024 2:00 PM [facility] LAB Blood Venous blood specimen / Unknown Venipuncture / Unknown 07/29/2024 10:02 AM EST 07/29/2024 12:19 PM EST Tabby Bledsoe MD LAB BLOOD ORDERABLES Fin al Result [facility] LAB [address] [place] [address], documented in this encounter Visit Diagnoses Diagnosis Bacteremia documented in this encounter Additional Health Concerns Infection Onset Date Last Indicated Resolved Time ESBL 06/22/2024 06/22/2024 documented as of this encounter Care Teams Cardiology Nurse Relationship Specialty Start Date End Date Uday Sheehan MD [address] [place] [address] Dr Donna [place] PCP - General Investigation Manager 12/19/16 documented as of this encounter
--- OUTSIDE RECORDS SUMMARY | 2024-11-07 12:16 | XMS_ITS | Encounter Summary ---
Author Organization [facility] Address [address] [place] [address] Care Team Providers Care Quality Control Name Role Phone Uday Sheehan MD Primary Care Provider [phone] Encounter Details Date Type Department Care Team (Late st Contact Info) Description 08/03/2024 Lab Requisition [facility] - Main Lab [address] [place] [address] Tabby Bledsoe MD [address] [address] Bacteremia Social History Tobacco Use Types Packs/Day [...] LAB CHEMISTRY METHOD 08/05/2024 1:55 PM EST [facility] ([facility] LAB Potassium 3.6 3.5 - 5.5 mmol/L LAB CHEMISTRY METHOD 08/05/2024 1:55 PM [facility] LAB Chloride 106 96 - 110 mmol/L LAB CHEMISTRY METHOD 08/05/2024 1:55 PM [facility] LAB CO2 25 21 - 32 mmol/L LAB CHEMISTRY METHOD 08/05/2024 1:55 PM [facility] LAB Anion Gap 10 3 - 11 LAB CHEMISTRY METHOD 08/05/2024 1:55 PM [facility] LAB Glucose 70 70 - 100 mg/dL LAB CHEMISTRY METHOD 08/05/2024 1:55 PM [facility] LAB BUN 31(H) 5 - 25 mg/dL LAB CHEMISTRY METHOD 08/05/2024 1:55 PM [facility] LAB Creatinine 2.20(H) 0.70 - 1.30 mg/dL LAB CHEMISTRY METHOD 08/05/2024 1:55 PM [facility] LAB eGFR 29(L) >=60 mL/min/1. 73m2 LAB CHEMISTRY METHOD 08/05/2024 1:55 PM [facility] LAB Comment:Calculation based on the??Chronic Kidney Disease Epidemiology Collaboration (CKD-EPI) equation refit??without adjustment for race. BUN/Creatinine Ratio 14.1 LAB CHEMISTRY METHOD 08/05/2024 1:55 PM [facility] LAB Calcium 8.3(L) 8.5 - 10.5 mg/dL LAB CHEMISTRY METHOD 08/05/2024 1:55 PM [facility] LAB AST (SGOT) 30 10 - 42 unit/L LAB CHEMISTRY METHOD 08/05/2024 1:55 PM [facility] LAB ALT (SGPT) 17 10 - 60 unit/L LAB CHEMISTRY METHOD 08/05/2024 1:55 PM [facility] LAB Alkaline Phosphatase 103 42 - 121 unit/L LAB CHEMISTRY METHOD 08/05/2024 1:55 PM [facility] LAB Total Protein 5.4(L) 6.0 - 8.0 g/dL LAB CHEMISTRY METHOD 08/05/2024 1:55 PM EST [facility] LAB Albumin 1.4(L) 3.2 - 5.0 g/dL LAB CHEMISTRY METHOD 08/05/2024 1:55 PM [facility] LAB Total Bilirubin 0.3 0.0 - 1.4 mg/dL LAB CHEMISTRY METHOD 08/05/2024 1:55 PM [facility] LAB Blood Venous blood specimen / Unknown Venipuncture / Unknown 08/05/2024 7:45 AM EST 08/05/2024 12:00 PM EST us Tabby Bledsoe MD LAB BLOOD ORDERABLES Fin al Result [facility] LAB [address] [place] [address], [place] [phone] * (ABNORMAL) Complete blood count (08/05/2024 7:45 AM EST) WBC 11.9(H) 4.8 - 10.8 K/mcL LAB HEMETOLOGY METHOD 08/05/2024 1:29 PM [facility] LAB RBC 2.50(L) 4.50 - 5.50 M/mcL LAB HEMETOLOGY METHOD 08/05/2024 1:29 PM [facility] LAB Hemoglobin 6.5(L) 13.5 - 17.5 g/dL LAB HEMETOLOGY METHOD 08/05/2024 1:29 PM [facility] LAB Hematocrit 22.0(L) 42.0 - 54.0 % LAB HEMETOLOGY METHOD 08/05/2024 1:29 PM [facility] LAB MCV 87.6 79.0 - 98.0 FL LAB HEMETOLOGY METHOD 08/05/2024 1:29 PM [facility] LAB MCH 25.9(L) 27.0 - 32.0 pcg LAB HEMETOLOGY METHOD 08/05/2024 1:29 PM [facility] LAB MCHC 29.5(L) 32.0 - 37.0 g/dL LAB HEMETOLOGY METHOD 08/05/2024 1:29 PM EST [facility] LAB RDW 19.6(H) 11.0 - 15.0 % LAB HEMETOLOGY METHOD 08/05/2024 1:29 PM [facility] LAB Platelets 268 130 - 400 K/mcL LAB HEMETOLOGY METHOD 08/05/2024 1:29 PM [facility] LAB MPV 9.0 7.0 - 11.0 FL LAB HEMETOLOGY METHOD 08/05/2024 1:29 PM [facility] LAB NRBC 0.0 <1.0 % LAB HEMETOLOGY METHOD 08/05/2024 1:29 PM [facility] LAB NRBC Absolute 0.00 <0.10 K/mcL LAB HEMETOLOGY METHOD 08/05/2024 1:29 PM [facility] LAB Blood Venous blood specimen / Unknown Venipuncture / Unknown 08/05/2024 7:45 AM EST 08/05/2024 12:00 PM EST us Tabby Bledsoe MD LAB BLOOD ORDERABLES Fin al Result [facility] LAB [address] [place] [address], documented in this encounter Visit Diagnoses Diagnosis Bacteremia documented in this encounter Additional Health Concerns Infection Onset Date Last Indicated Resolved Time ESBL 06/22/2024 06/22/2024 documented as of this encounter Care Teams Quality Control Relationship Specialty Start Date End Date Uday Sheehan MD [address] [place] [address] Dr Donna [place] PCP - General Mandarin Teacher 12/19/16 documented as of this encounter
--- OUTSIDE RECORDS SUMMARY | 2024-11-07 12:16 | XMS_ITS | Encounter Summary ---
Author Organization [facility] Address [address] [place] [address] Care Team Providers Care Tying Machine Operator Name Role Phone Uday Sheehan Primary Care Provider [phone] Encounter Details Date Type Department Care Team (Late st Contact Info) Description 05/14/2024 Lab Requisition [facility] Lab [address] [place] [address] Valarie Pierson MD [address] [place] [address] Acute and chronic respiratory failure with hypoxia; [...] this encounter Procedures * Due to [employer] law, this organization might not be sharing negative HIV tests. Procedure Name Priority Date/Time Associated Diagnosis Comments BASIC METABOLIC PANEL Routine 05/14/2024 10:15 AM EST Acute and chronic respiratory failure with hypoxia (HCC) No diagnosis documented in this encounter Results * Due to [employer] law, this organization might not be sharing negative HIV tests. * (ABNORMAL) Basic Metabolic Panel (05/14/2024 10:15 AM EST) NA 141 136 - 145 mmol/L 05/14/2024 10:44 AM EST [facility] K 3.7 3.5 - 5.1 mmol/L 05/14/2024 10:44 AM EST [facility] Cl 102 98 - 109 mmol/L 05/14/2024 10:44 AM EST [facility] LAB CO2 28 22 - 32 mmol/L 05/14/2024 10:44 AM EST [facility] LAB BUN 34(H) 8 - 23 mg/dL 05/14/2024 10:44 AM EST [facility] LAB Creatinine 1.69(H) 0.50 - 1.12 mg/dL 05/14/2024 10:44 AM [facility] LAB Glucose 100(H) 60 - 99 mg/dL 05/14/2024 10:44 AM EST [facility] LAB Calcium 9.4 8.4 - 10.4 mg/dL 05/14/2024 10:44 AM EST [facility] LAB Anion Gap 15 >=0 05/14/2024 10:44 AM [facility] LAB eGFR 40(L) >=60 mL/min/1. 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
--- OUTSIDE RECORDS SUMMARY | 2024-11-07 12:16 | XMS_ITS | Encounter Summary ---
Author Organization [facility] Address [address] [place] [address] Care Team Providers Care Child Attendant Name Role Phone Uday Sheehan MD Primary Care Provider [phone] Encounter Details Date Type Department Care Team (Late st Contact Info) Description 09/05/[address] [facility] - Main Lab [address] [place] [address] Tabby Bledsoe MD [address] [address] Osteomyelitis, unspecified (CMS/HCC V24, CMS/HCC V28); Extended spectrum beta lactamase (ESBL) resistance Social History Tobacco Use Types Packs/Day Years [...] Date/Time Associated Diagnosis Comments VANCOMYCIN, TROUGH Routine 09/05/2024 6: 37 AM EST Osteomyelitis, unspecified (CMS/HCC) Extended spectrum beta lactamase (ESBL) resistance documented in this encounter Results * Vancomycin, trough (09/05/2024 6:37 AM EST) Vancomycin Trough 14.0 10.0 - 20.0 mcg/mL LAB CHEMISTRY METHOD 09/05/2024 10:44 AM EST [facility] ([facility]) [facility] Blood Venous blood specimen / Unknown Venipuncture / Unknown 09/05/2024 6:37 AM EST 09/05/2024 9:06 AM EST us Tabby Bledsoe MD LAB BLOOD ORDERABLES Fin al Result [facility] ([facility]) [facility] LAB [address] [place] [address], documented in this encounter Visit Diagnoses Diagnosis Osteomyelitis, unspecified ([facility] V24, [facility] V28) Extended spectrum beta lactamase (ESBL) resistance documented in this encounter Additional Health Concerns Infection Onset Date Last Indicated Resolved Time ESBL 06/22/2024 06/22/2024 documented as of this encounter Care Teams Child Attendant Relationship Specialty Start Date End Date Uday Sheehan MD [address] [place] [address] Dr Thompson [place] PCP - General Saw Setter 12/19/16 documented as of this encounter
--- OUTSIDE RECORDS SUMMARY | 2024-11-07 12:16 | XMS_ITS | Encounter Summary ---
Author Organization [facility] Address [address] [place] [address] Care Team Providers Care Roofing Laborer Name Role Phone Uday Sheehan Primary Care Provider [phone] Encounter Details Date Type Department Care Team (Late st Contact Info) Description 03/24/2024 Lab Requisition [facility] Lab [address] [place] [address] Cecilio Bautista PA [address] [place] [address] Acute respiratory failure with hypoxia; No diagnosis [...] this encounter Procedures * Due to [place] [employer] law, this organization might not be sharing negative HIV tests. Procedure Name Priority Date/Time Associated Diagnosis Comments CBC AUTO DIFFERENTIAL Routine 03/24/2024 7:34 AM EDT Acute respiratory failure with hypoxia (HCC) No diagnosis documented in this encounter Results * Due to [place] [employer] law, this organization might not be sharing negative HIV tests. * (ABNORMAL) CBC Auto Differential (03/24/2024 7:34 AM EDT) [facility] WBC 9.2 4.8 - 10.8 10*3/uL 03/24/2024 10:37 AM EDT [facility] RBC 2.51(L) 4.70 - 6.10 10*6/uL 03/24/2024 10:37 AM EDT [facility] Hemoglobin 7.0(L) 13.7 - 16.5 g/dL 03/24/2024 10:37 AM EDT [facility] Hematocrit 22.5(L) 40.5 - 48.5 % 03/24/2024 10:37 AM EDT [facility] MCV 89.6 80.0 - 94.0 fL 03/24/2024 10:37 AM EDT [facility] MCH 27.9 26.0 - 34.0 pg 03/24/2024 10:37 AM EDT [facility] MCHC 31.1 31.0 - 36.0 g/dL 03/24/2024 10:37 AM EDT [facility] RDW 16.0(H) 12.0 - 15.0 % 03/24/2024 10:37 AM EDT [facility] RDW Standard Deviation 51.7(H) 35.1 - 43.9 fL 03/24/2024 10:37 AM EDT [facility] Platelets 186 140 - 440 10*3/uL 03/24/2024 10:37 AM EDT [facility] MPV 10.3 9.4 - 12.4 fL 03/24/2024 10:37 AM EDT [facility] Neutrophil % 59.1 50.0 - 75.0 % 03/24/2024 10:37 AM EDT [facility] Immature Grans % 0.3 0.0 - 0.9 % 03/24/2024 10:37 AM EDT [facility] Lymphocyte % 19.6(L) 20.0 - 44.0 % 03/24/2024 10:37 AM EDT [facility] Monocyte % 15.5(H) 0.0 - 14.0 % 03/24/2024 10:37 AM EDT [facility] Eosinophil % 4.8 0.0 - 5.0 % 03/24/2024 10:37 AM EDT [facility] Basophil % 0.7 0.0 - 2.0 % 03/24/2024 10:37 AM EDT [facility] Neutrophil # 5.45 1.80 - 7.70 10*3/uL 03/24/2024 10:37 AM EDT [facility] Immature Grans # 0.03 0.00 - 0.03 10*3/uL 03/24/2024 10:37 AM EDT [facility] Lymphocyte # 1.80 1.00 - 4.75 10*3/uL 03/24/2024 10:37 AM EDT [facility] Monocyte # 1.40 0.00 - 6.00 10*3/uL 03/24/2024 10:37 AM EDT [facility] Eosinophil # 0.40 0.00 - 0.80 10*3/uL 03/24/2024 10:37 AM EDT [facility] Basophil # 0.10 0.00 - 0.20 10*3/uL 03/24/2024 10:37 AM EDT [facility] nRBC % 0.0 0 - 0 /100 WBCs 03/24/2024 10:37 AM EDT [facility] nRBC # <0.01 0.00 - 0.13 10*3/uL 03/24/2024 10:37 AM EDT [facility] Blood Structure of peripheral vein / Unknown Venipuncture / Unknown 03/24/2024 7:34 AM EDT 03/24/2024 10:31 AM EDT us Cecilio [facility] LAB BLOOD ORDERABLES Final R esult [facility] [address] [facility] [address] [place] [address], [place] [phone] documented in this encounter Visit Diagnoses Diagnosis [...] documented as of this encounter Care Teams Roofing Laborer Relationship Specialty Start Date End Date Uday Sheehan [address] [place] [address] dr Donna [place], [place] [address] PCP - General Internal Medicine 03/27/24 documented as of this encounter
--- OUTSIDE RECORDS SUMMARY | 2024-11-07 12:16 | XMS_ITS | Encounter Summary ---
Author Organization [facility] Address [address] [place] [address] Care Team Providers Care Labor And Delivery Nurse Name Role Phone Uday Sheehan Primary Care Provider [phone] Encounter Details Date Type Department Care Team (Late st Contact Info) Description 03/25/2024 Lab Requisition [facility] [address] [place] [address] Cecilio Bautista PA [address] [place] [address] Acute and chronic respiratory failure with hypoxia; [...] Cells (03/26/2024 9:24 AM EDT) Product Code [id number] [facility] Unit Number [id number] [facility] ABO O [facility] Unit RH POS [facility] Crossmatch Compatible [facility] Dispense Status Presumed Transfuse [facility] Blood Expiration Date [facility] Blood Type Barcode 5100 [facility] Dispensed Volume 291 ML [facility] Product Code [id number] [facility] Unit Number [id number] [facility] Unit ABO O [facility] Unit RH POS [facility] Crossmatch Compatible [facility] Dispense Status Presumed Transfuse [facility] Blood Expiration Date [facility] Blood Type Barcode 5100 [facility] Dispensed Volume 377 ML [facility] 03/26/2024 9:24 AM EDT 03/25/2024 11:34 AM EDT us Cecilio ZHU BLOOD BANK PRODUCT ORDERABLE S Final Result [facility] [address] [place] [id number], * (ABNORMAL) Respiratory Culture w/Gram Stain (03/25/2024 5:50 AM EDT) Respiratory Culture Few Methicillin resistant Staphylococcus aureus (MRSA)(A) MINIMUM INHIBITORY CONCENTRATION ([place]) 03/28/2024 8:28 AM EDT [facility] Respiratory Culture Few Debora krusei(A) MINIMUM INHIBITORY CONCENTRATION ([place]) 03/28/2024 8:28 AM EDT [facility] Gram Stain Result <10 per LPF Epithelial Cells 03/28/2024 8:28 AM EDT [facility] Gram Stain Result >25 per LPF White Blood Cells Seen 03/28/2024 8:28 AM EDT [facility] Gram Stain Result Few Gram Positive Bacilli 03/28/2024 8:28 AM EDT [facility] Gram Stain Result Rare Gram Positive Cocci 03/28/2024 8:28 AM EDT [facility] Sputum Sputum / Unknown Non-Blood Collection / Unknown 03/25/2024 5:50 AM EDT 03/25/2024 5:19 PM EDT Narrative [facility] - 03/28/2024 8:28 AM EDT [...] MICROBIOLOGY - GENERAL O RDERABLES Final Result [facility] [address] [place] [id number], * (ABNORMAL) CBC Auto Differential (03/25/2024 5:50 AM EDT) WBC 8.5 4.8 - 10.8 10*3/uL 03/25/2024 5:56 PM EDT [facility] RBC 2.47(L) 4.70 - 6.10 10*6/uL 03/25/2024 5:56 PM EDT [facility] Hemoglobin 6.9(LL) 13.7 - 16.5 g/dL 03/25/2024 5:56 PM EDT [facility] Hematocrit 21.8(L) 40.5 - 48.5 % 03/25/2024 5:56 PM EDT [facility] MCV 88.3 80.0 - 94.0 fL 03/25/2024 5:56 PM EDT [facility] MCH 27.9 26.0 - 34.0 pg 03/25/2024 5:56 PM EDT [facility] MCHC 31.7 31.0 - 36.0 g/dL 03/25/2024 5:56 PM EDT [facility] RDW 15.6(H) 12.0 - 15.0 % 03/25/2024 5:56 PM EDT [facility] RDW Standard Deviation 50.4(H) 35.1 - 43.9 fL 03/25/2024 5:56 PM EDT [facility] Platelets 202 140 - 440 10*3/uL 03/25/2024 5:56 PM EDT [facility] MPV 10.0 9.4 - 12.4 fL 03/25/2024 5:56 PM EDT [facility] Neutrophil % 67.2 50.0 - 75.0 % 03/25/2024 5:56 PM EDT [facility] Immature Grans % 0.8 0.0 - 0.9 % 03/25/2024 5:56 PM EDT [facility] Lymphocyte % 14.3(L) 20.0 - 44.0 % 03/25/2024 5:56 PM EDT [facility] Monocyte % 12.9 0.0 - 14.0 % 03/25/2024 5:56 PM EDT [facility] Eosinophil % 4.3 0.0 - 5.0 % 03/25/2024 5:56 PM EDT [facility] Basophil % 0.5 0.0 - 2.0 % 03/25/2024 5:56 PM EDT [facility] Neutrophil # 5.69 1.80 - 7.70 10*3/uL 03/25/2024 5:56 PM EDT [facility] Immature Grans # 0.07(H) 0.00 - 0.03 10*3/uL 03/25/2024 5:56 PM EDT [facility] Lymphocyte # 1.20 1.00 - 4.75 10*3/uL 03/25/2024 5:56 PM EDT [facility] Monocyte # 1.10 0.00 - 6.00 10*3/uL 03/25/2024 5:56 PM EDT [facility] Eosinophil # 0.40 0.00 - 0.80 10*3/uL 03/25/2024 5:56 PM EDT [facility] Basophil # <0.03 0.00 - 0.20 10*3/uL 03/25/2024 5:56 PM EDT [facility] nRBC % 0.0 0 - 0 /100 WBCs 03/25/2024 5:56 PM EDT [facility] nRBC # <0.01 0.00 - 0.13 10*3/uL 03/25/2024 5:56 PM EDT [facility] Blood Structure of peripheral vein / Unknown Venipuncture / Unknown 03/25/2024 5:50 AM EDT 03/25/2024 5:19 PM EDT us Cecilio ZHU LAB BLOOD ORDERABLES Final R esult Performing Organization Address City/State/[facility] Co de Phone Number [facility] [address] [place] [phone], * Type and Screen (03/25/2024 5:50 AM EDT) ABO Blood Type O 03/25/2024 12:36 PM EDT [facility] RH Type Positive 03/25/2024 12:36 PM EDT [facility] Expiration Date/Time 2024-03-28 23:59 03/25/2024 12:36 PM EDT [facility] Antibody Screen Negative 03/25/2024 12:36 PM EDT [facility] Blood Structure of peripheral vein / Unknown Venipuncture / Unknown 03/25/2024 5:50 AM EDT 03/25/2024 11:34 AM EDT us Cecilio ZHU LAB BLOOD BANK TEST ORDERABL ES Edited Result - Final [facility] [address] [place] [address], [place] * (ABNORMAL) CBC Auto Differential (03/25/2024 5:50 AM EDT) WBC 8.3 4.8 - 10.8 10*3/uL 03/25/2024 1:27 PM EDT [facility] RBC 2.35(L) 4.70 - 6.10 10*6/uL 03/25/2024 1:27 PM EDT [facility] Hemoglobin 6.6(LL) 13.7 - 16.5 g/dL 03/25/2024 1:27 PM EDT [facility] Hematocrit 21.0(L) 40.5 - 48.5 % 03/25/2024 1:27 PM EDT [facility] MCV 89.4 80.0 - 94.0 fL 03/25/2024 1:27 PM EDT [facility] MCH 28.1 26.0 - 34.0 pg 03/25/2024 1:27 PM EDT [facility] MCHC 31.4 31.0 - 36.0 g/dL 03/25/2024 1:27 PM EDT [facility] RDW 16.1(H) 12.0 - 15.0 % 03/25/2024 1:27 PM EDT [facility] RDW Standard Deviation 51.3(H) 35.1 - 43.9 fL 03/25/2024 1:27 PM EDT [facility] Platelets 174 140 - 440 10*3/uL 03/25/2024 1:27 PM EDT [facility] MPV 10.9 9.4 - 12.4 fL 03/25/2024 1:27 PM EDT [facility] Neutrophil % 63.1 50.0 - 75.0 % 03/25/2024 1:27 PM EDT [facility] Immature Grans % 0.4 0.0 - 0.9 % 03/25/2024 1:27 PM EDT [facility] Lymphocyte % 17.4(L) 20.0 - 44.0 % 03/25/2024 1:27 PM EDT [facility] Monocyte % 13.8 0.0 - 14.0 % 03/25/2024 1:27 PM EDT [facility] Eosinophil % 4.8 0.0 - 5.0 % 03/25/2024 1:27 PM EDT [facility] Basophil % 0.5 0.0 - 2.0 % 03/25/2024 1:27 PM EDT [facility] Neutrophil # 5.23 1.80 - 7.70 10*3/uL 03/25/2024 1:27 PM EDT [facility] Immature Grans # 0.03 0.00 - 0.03 10*3/uL 03/25/2024 1:27 PM EDT [facility] Lymphocyte # 1.40 1.00 - 4.75 10*3/uL 03/25/2024 1:27 PM EDT [facility] Monocyte # 1.10 0.00 - 6.00 10*3/uL 03/25/2024 1:27 PM EDT [facility] Eosinophil # 0.40 0.00 - 0.80 10*3/uL 03/25/2024 1:27 PM EDT [facility] Basophil # <0.03 0.00 - 0.20 10*3/uL 03/25/2024 1:27 PM EDT [facility] nRBC % 0.0 0 - 0 /100 WBCs 03/25/2024 1:27 PM EDT [facility] nRBC # <0.01 0.00 - 0.13 10*3/uL 03/25/2024 1:27 PM EDT [facility] Blood Structure of peripheral vein / Unknown Venipuncture / Unknown 03/25/2024 5:50 AM EDT 03/25/2024 11:34 AM EDT Cecilio ZHU LAB BLOOD ORDERABLES Final R esult Performing Organization Address [facility]/ZIP Co de Phone Number [facility] [address] [address], [place] [phone] * Ammonia (03/25/2024 5:50 AM EDT) Ammonia 46 16 - 60 umol/L 03/25/2024 12:29 PM EDT [facility] Blood Structure of peripheral vein / Unknown Venipuncture / Unknown 03/25/2024 5:50 AM EDT 03/25/2024 11:34 AM EDT Cecilio ZHU LAB BLOOD ORDERABLES Final R esult Performing Organization Address [facility] Co de Phone Number [facility] [address] [address], [place] [phone] * (ABNORMAL) Comprehensive Metabolic Panel (03/25/2024 5:50 AM EDT) NA 139 136 - 145 mmol/L 03/25/2024 12:40 PM EDT [facility] K 4.5 3.5 - 5.1 mmol/L 03/25/2024 12:40 PM EDT [facility] Cl 100 98 - 109 mmol/L 03/25/2024 12:40 PM EDT [facility] CO2 29 23 - 32 mmol/L 03/25/2024 12:40 PM EDT [facility] Anion Gap 15 >=0 03/25/2024 12:40 PM EDT [facility] Glucose 101(H) 60 - 99 mg/dL 03/25/2024 12:40 PM EDT [facility] Creatinine 0.95 0.50 - 1.12 mg/dL 03/25/2024 12:40 PM EDT [facility] Calcium 8.8 8.4 - 10.4 mg/dL 03/25/2024 12:40 PM EDT [facility] Total Protein 5.9(L) 6.6 - 8.7 g/dL 03/25/2024 12:40 PM EDT [facility] Albumin 2.8(L) 3.5 - 5.0 g/dL 03/25/2024 12:40 PM EDT [facility] Bilirubin, Total 0.5 0.2 - 1.2 mg/dL 03/25/2024 12:40 PM EDT [facility] Alkaline Phosphatase 75 40 - 129 U/L 03/25/2024 12:40 PM EDT [facility] AST 34 0 - 40 U/L 03/25/2024 12:40 PM EDT [facility] ALT 17 <=41 U/L 03/25/2024 12:40 PM T [facility] BUN 15 8 - 23 mg/dL 03/25/2024 12:40 PM T [facility] eGFR 79 >=60 mL/min/1. 73m2 03/25/2024 12:40 PM T [facility] Comment:The estimated glomer ular [...] - 4.2 g/dL 03/25/2024 12:40 PM T [facility] A/G Ratio 0.9(L) 1.5 - 3.0 03/25/2024 12:40 PM T [facility] Blood Structure of peripheral vein / Unknown Venipuncture / Unknown 03/25/2024 5:50 AM EDT 03/25/2024 11:34 AM EDT us Cecilio ZHU LAB BLOOD ORDERABLES Final R esult [facility] [address] [place] [address], documented in this encounter Visit Diagnoses Diagnosis [...] as of this encounter Care Teams Labor And Delivery Nurse Relationship Specialty Start Date End Date Uday Sheehan [address] [place] [address] [place] [address] PCP - General Internal Medicine 03/27/24 documented as of this encounter
--- OUTSIDE RECORDS SUMMARY | 2024-11-07 12:16 | XMS_ITS | Encounter Summary ---
Author Organization [facility] Address [address] [place] [address] Care Team Providers Care Service Advisor Name Role Phone Uday Sheehan MD Primary Care Provider [phone] Encounter Details Date Type Department Care Team (Late st Contact Info) Description 10/03/2024 Lab Requisition [facility] Lab [address] [place] [address] Tabby Bledsoe MD [address] [address] Anemia, unspecified Social History Tobacco Use Types [...] Associated Diagnosis Comments COMPLETE BLOOD COUNT Routine 10/03/2024 5:24 AM EDT Anemia, unspecified BASIC METABOLIC PANEL Routine 10/03/2024 5:24 AM EDT Anemia, unspecified documented in this encounter Results * (ABNORMAL) Basic metabolic panel (10/03/2024 5:24 AM EDT) Sodium 135 133 - 145 mmol/L LAB CHEMISTRY METHOD 10/03/2024 11:29 AM EDT [facility] Potassium 4.9 3.5 - 5.5 mmol/L LAB CHEMISTRY METHOD 10/03/2024 11:29 AM [facility] Chloride 98 96 - 110 mmol/L LAB CHEMISTRY METHOD 10/03/2024 11:29 AM [facility] CO2 31 21 - 32 mmol/L LAB CHEMISTRY METHOD 10/03/2024 11:29 AM [facility] Anion Gap 6 3 - 11 LAB CHEMISTRY METHOD 10/03/2024 11:29 AM [facility] Glucose 87 70 - 100 mg/dL LAB CHEMISTRY METHOD 10/03/2024 11:29 AM [facility] BUN 36(H) 5 - 25 mg/dL LAB CHEMISTRY METHOD 10/03/2024 11:29 AM [facility] Creatinine 1.31(H) 0.70 - 1.30 mg/dL LAB CHEMISTRY METHOD 10/03/2024 11:29 AM [facility] eGFR 54(L) >=60 mL/min/1. 73m2 LAB CHEMISTRY METHOD 10/03/2024 11:29 AM [facility] Comment:Calculation based on the??Chronic Kidney Disease Epidemiology Collaboration (CKD-EPI) equation refit??without adjustment for race. BUN/Creatinine Ratio 27.5 LAB CHEMISTRY METHOD 10/03/2024 11:29 AM [facility] Calcium 8.1(L) 8.5 - 10.5 mg/dL LAB CHEMISTRY METHOD 10/03/2024 11:29 AM [facility] Blood Venous blood specimen / Unknown Venipuncture / Unknown 10/03/2024 5:24 AM EDT 10/03/2024 10:03 AM EDT us Tabby Bledsoe MD LAB BLOOD ORDERABLES Fin al Result [facility] [address] [place] [address], * (ABNORMAL) Complete blood count (10/03/2024 5:24 AM EDT) [facility] WBC 9.2 4.8 - 10.8 K/mcL LAB HEMETOLOGY METHOD 10/03/2024 10:27 AM [facility] RBC 2.40(L) 4.50 - 5.50 M/mcL LAB HEMETOLOGY METHOD 10/03/2024 10:27 AM [facility] Hemoglobin 6.6(L) 13.5 - 17.5 g/dL LAB HEMETOLOGY METHOD 10/03/2024 10:27 AM [facility] Hematocrit 22.2(L) 42.0 - 54.0 % LAB HEMETOLOGY METHOD 10/03/2024 10:27 AM [facility] MCV 92.1 79.0 - 98.0 FL LAB HEMETOLOGY METHOD 10/03/2024 10:27 AM [facility] MCH 27.4 27.0 - 32.0 pcg LAB HEMETOLOGY METHOD 10/03/2024 10:27 AM [facility] MCHC 29.7(L) 32.0 - 37.0 g/dL LAB HEMETOLOGY METHOD 10/03/2024 10:27 AM [facility] RDW 17.0(H) 11.0 - 15.0 % LAB HEMETOLOGY METHOD 10/03/2024 10:27 AM [facility] Platelets 273 130 - 400 K/mcL LAB HEMETOLOGY METHOD 10/03/2024 10:27 AM [facility] MPV 9.1 7.0 - 11.0 FL LAB HEMETOLOGY METHOD 10/03/2024 10:27 AM [facility] NRBC 0.0 <1.0 % LAB HEMETOLOGY METHOD 10/03/2024 10:27 AM [facility] NRBC Absolute 0.00 <0.10 K/mcL LAB HEMETOLOGY METHOD 10/03/2024 10:27 AM EDT [facility] Blood Venous blood specimen / Unknown Venipuncture / Unknown 10/03/2024 5:24 AM EDT 10/03/2024 10:03 AM EDT us Tabby Bledsoe MD LAB BLOOD ORDERABLES Fin al Result [facility] [address] [place] [address], documented in this encounter Visit Diagnoses Diagnosis Anemia, unspecified documented in this encounter Additional Health Concerns Infection Onset Date Last Indicated Resolved Time ESBL 06/22/2024 06/22/2024 documented as of this encounter Care Teams Service Advisor Relationship Specialty Start Date End Date Uday Sheehan MD [address] [place] [address] Dr Thompson [place] PCP - General Supervisor/Port Director 12/19/16 documented as of this encounter
--- OUTSIDE RECORDS SUMMARY | 2024-11-07 12:16 | XMS_ITS | Encounter Summary ---
Author Organization [facility] Address [address] [place] [address] Care Team Providers Care Financial Recording Clerk Name Role Phone Uday Sheehan MD Primary Care Provider [phone] Encounter Details Date Type Department Care Team (Late st Contact Info) Description 07/19/2024 Lab Requisition [facility] Lab [address] [place] [address] Tabby Bledsoe MD [address] [address] Bacteremia Social History Tobacco Use Types Packs/Day [...] LAB CHEMISTRY METHOD 07/22/2024 10:29 AM EST [facility] Potassium 4.3 3.5 - 5.5 mmol/L [...] MD LAB BLOOD ORDERABLES Fin al Result [facility] [address] [place] [address], [place] [phone] * (ABNORMAL) Complete blood count (07/22/2024 7:38 [...] MD LAB BLOOD ORDERABLES Fin al Result [facility] [address] [place] [address], documented in this encounter Visit Diagnoses Diagnosis Bacteremia documented in this encounter Additional Health Concerns Infection Onset Date Last Indicated Resolved Time ESBL 06/22/2024 06/22/2024 documented as of this encounter Care Teams Financial Recording Clerk Relationship Specialty Start Date End Date Uday Sheehan MD [address] [facility] [address] Donna [place] PCP - General Sand Mixer Operator 12/19/16 documented as of this encounter
--- OUTSIDE RECORDS SUMMARY | 2024-11-07 12:17 | XMS_ITS | Encounter Summary ---
Author Organization [facility] Address [address] [place] [address] Care Team Providers Care High Wire Artist Name Role Phone Uday Sheehan MD Primary Care Provider [phone] Encounter Details Date Type Department Care Team (Late st Contact Info) Description 06/15/2024 Lab Requisition [facility] - Main Lab [address] [facility] [place] [address] Zak Zuluaga MD [address] [place], [place] [id number] Unspecified atrial fibrillation (CMS/HCC V24, CMS/HCC V28); [...] mmol/L LAB CHEMISTRY METHOD 06/17/2024 10:19 AM [facility] Potassium 4.7 3.5 - 5.5 mmol/L LAB CHEMISTRY METHOD 06/17/2024 10:19 AM [facility] Chloride 113(H) 96 - 110 mmol/L LAB CHEMISTRY METHOD 06/17/2024 10:19 AM [facility] CO2 24 21 - 32 mmol/L LAB CHEMISTRY METHOD 06/17/2024 10:19 AM [facility] Anion Gap 8 3 - 11 LAB CHEMISTRY METHOD 06/17/2024 10:19 AM [facility] Glucose 86 70 - 100 mg/dL LAB CHEMISTRY METHOD 06/17/2024 10:19 AM [facility] BUN 41(H) 5 - 25 mg/dL LAB CHEMISTRY METHOD 06/17/2024 10:19 AM [facility] Creatinine 2.95(H) 0.70 - 1.30 mg/dL LAB CHEMISTRY METHOD 06/17/2024 10:19 AM [facility] eGFR 20(L) >=60 mL/min/1. 73m2 LAB CHEMISTRY METHOD 06/17/2024 10:19 AM [facility] Comment:Calculation based on the??Chronic Kidney Disease Epidemiology Collaboration (CKD-EPI) equation refit??without adjustment for race. BUN/Creatinine Ratio 13.9 LAB CHEMISTRY METHOD 06/17/2024 10:19 AM [facility] Calcium 8.5 8.5 - 10.5 mg/dL LAB CHEMISTRY METHOD 06/17/2024 10:19 AM [facility] AST (SGOT) 50(H) 10 - 42 unit/L LAB CHEMISTRY METHOD 06/17/2024 10:19 AM [facility] ALT (SGPT) 59 10 - 60 unit/L LAB CHEMISTRY METHOD 06/17/2024 10:19 AM [facility] Alkaline Phosphatase 99 42 - 121 unit/L LAB CHEMISTRY METHOD 06/17/2024 10:19 AM [facility] Total Protein 5.9(L) 6.0 - 8.0 g/dL LAB CHEMISTRY METHOD 06/17/2024 10:19 AM [facility] Albumin 1.7(L) 3.2 - 5.0 g/dL LAB CHEMISTRY METHOD 06/17/2024 10:19 AM [facility] Total Bilirubin 0.6 0.0 - 1.4 mg/dL LAB CHEMISTRY METHOD 06/17/2024 10:19 AM [facility] Blood Venous blood specimen / Unknown Venipuncture / Unknown 06/17/2024 6:45 AM EST 06/17/2024 9:11 AM EST us Zak Zuluaga MD LAB BLOOD ORDERABLES Final Resul t [facility] [address] [place] [address], * (ABNORMAL) Complete blood count (06/17/2024 6:45 AM EST) WBC 8.6 4.8 - 10.8 K/mcL LAB HEMETOLOGY METHOD 06/17/2024 9:49 AM [facility] RBC 3.00(L) 4.50 - 5.50 M/mcL LAB HEMETOLOGY METHOD 06/17/2024 9:49 AM [facility] Hemoglobin 7.9(L) 13.5 - 17.5 g/dL LAB HEMETOLOGY METHOD 06/17/2024 9:49 AM [facility] Hematocrit 26.5(L) 42.0 - 54.0 % LAB HEMETOLOGY METHOD 06/17/2024 9:49 AM [facility] MCV 88.9 79.0 - 98.0 FL LAB HEMETOLOGY METHOD 06/17/2024 9:49 AM [facility] MCH 26.5(L) 27.0 - 32.0 pcg LAB HEMETOLOGY METHOD 06/17/2024 9:49 AM EST [facility] MCHC 29.8(L) 32.0 - 37.0 g/dL LAB HEMETOLOGY METHOD 06/17/2024 9:49 AM EST [facility] RDW 16.9(H) 11.0 - 15.0 % LAB HEMETOLOGY METHOD 06/17/2024 9:49 AM EST [facility] Platelets 284 130 - 400 K/mcL LAB HEMETOLOGY METHOD 06/17/2024 9:49 AM EST [facility] MPV 9.6 7.0 - 11.0 FL LAB HEMETOLOGY METHOD 06/17/2024 9:49 AM [facility] NRBC 0.0 <1.0 % LAB HEMETOLOGY METHOD 06/17/2024 9:49 AM EST [facility] NRBC Absolute 0.00 <0.10 K/mcL LAB HEMETOLOGY METHOD 06/17/2024 9:49 AM [facility] Blood Venous blood specimen / Unknown Venipuncture / Unknown 06/17/2024 6:45 AM EST 06/17/2024 9:18 AM EST us Zak Zuluaga MD LAB BLOOD ORDERABLES Final Resul t [facility] [address] [place] [address], documented in this encounter Visit Diagnoses Diagnosis Unspecified atrial fibrillation (CMS/HCC V24, CMS/HCC V28) Essential (primary) hypertension Unspecified essential hypertension documented in this encounter Additional Health Concerns Infection Onset Date Last Indicated Resolved Time ESBL 06/22/2024 06/22/2024 documented as of this encounter Care Teams High Wire Artist Relationship Specialty Start Date End Date Uday Sheehan MD [address] [place] [address] Dr Donna MA PCP - General Route Sales Delivery Driver 12/19/16 documented as of this encounter
--- OUTSIDE RECORDS SUMMARY | 2024-11-07 12:17 | XMS_ITS | Encounter Summary ---
Author Organization [facility] Address [address] [place] [address] Care Team Providers Care Merchandise Handler Name Role Phone Uday Sheehan MD Primary Care Provider [phone] Encounter Details Date Type Department Care Team (Late st Contact Info) Description 08/31/[address] [facility] - Main Lab [address] [facility] [place] [address] Tabby Bledsoe MD [address] [address] Bacteremia Social History Tobacco Use Types Packs/Day [...] as of this encounter Care Teams Merchandise Handler Relationship Specialty Start Date End Date Uday Sheehan MD [address] [place] [address] PCP - General Edm Operator 12/19/16 documented as of this encounter
--- OUTSIDE RECORDS SUMMARY | 2024-11-07 12:17 | XMS_ITS | Encounter Summary ---
Author Organization [facility] Address [address] [place] [address] Care Team Providers Care Forecast Analyst Name Role Phone Uday Sheehan MD Primary Care Provider [phone] Encounter Details Date Type Department Care Team (Late st Contact Info) Description 10/12/2024 Lab Requisition [facility] - Main Lab [address] [place] [address] Tabby Bledsoe MD [address] [address] Bacteremia Social History Tobacco Use Types Packs/Day [...] Associated Diagnosis Comments COMPLETE BLOOD COUNT Routine 10/14/2024 7:07 AM EDT Bacteremia COMPREHENSIVE METABOLIC PANEL Routine 10/14/2024 7:07 AM EDT Bacteremia documented in this encounter Results * (ABNORMAL) Comprehensive metabolic panel (10/14/2024 7:07 AM EDT) Sodium 140 133 - 145 mmol/L LAB CHEMISTRY METHOD 10/14/2024 1:[address] [facility] Potassium 4.1 3.5 - 5.5 mmol/L LAB CHEMISTRY METHOD 10/14/2024 1:24 PM [facility] Chloride 105 96 - 110 mmol/L LAB CHEMISTRY METHOD 10/14/2024 1:24 PM [facility] CO2 28 21 - 32 mmol/L LAB CHEMISTRY METHOD 10/14/2024 1:24 PM [facility] Anion Gap 7 3 - 11 LAB CHEMISTRY METHOD 10/14/2024 1:24 PM [facility] Glucose 94 70 - 100 mg/dL LAB CHEMISTRY METHOD 10/14/2024 1:24 PM [facility] BUN 40(H) 5 - 25 mg/dL LAB CHEMISTRY METHOD 10/14/2024 1:24 PM [facility] Creatinine 1.19 0.70 - 1.30 mg/dL LAB CHEMISTRY METHOD 10/14/2024 1:24 PM [facility] eGFR 60 >=60 mL/min/1. 73m2 LAB CHEMISTRY METHOD 10/14/2024 1:24 PM [facility] Comment:Calculation based on the??Chronic Kidney Disease Epidemiology Collaboration (CKD-EPI) equation refit??without adjustment for race. BUN/Creatinine Ratio 33.6 LAB CHEMISTRY METHOD 10/14/2024 1:24 PM [facility] Calcium 8.2(L) 8.5 - 10.5 mg/dL LAB CHEMISTRY METHOD 10/14/2024 1:24 PM [facility] AST (SGOT) 150(H) 10 - 42 unit/L LAB CHEMISTRY METHOD 10/14/2024 1:24 PM [facility] Comment:Results verified by repeat testing ALT (SGPT) 122(H) 10 - 60 unit/L LAB CHEMISTRY METHOD 10/14/2024 1:24 PM [facility] Comment:Results verified by repeat testing Alkaline Phosphatase 113 42 - 121 unit/L LAB CHEMISTRY METHOD 10/14/2024 1:24 PM [facility] Total Protein 5.7(L) 6.0 - 8.0 g/dL LAB CHEMISTRY METHOD 10/14/2024 1:[address] [facility] Albumin 1.5(L) 3.2 - 5.0 g/dL LAB CHEMISTRY METHOD 10/14/2024 1:[address] [facility] Total Bilirubin 0.3 0.0 - 1.4 mg/dL LAB CHEMISTRY METHOD 10/14/2024 1:[address] [facility] Blood Venous blood specimen / Unknown Venipuncture / Unknown 10/14/2024 7:07 AM EDT 10/14/2024 10:10 AM EDT us Tabby Bledsoe MD LAB BLOOD ORDERABLES Fin al Result [facility] [address] [place] [address], * (ABNORMAL) Complete blood count (10/14/2024 7:07 AM EDT) WBC 5.9 4.8 - 10.8 K/mcL LAB HEMETOLOGY METHOD 10/14/2024 11:11 AM [facility] RBC 2.60(L) 4.50 - 5.50 M/mcL LAB HEMETOLOGY METHOD 10/14/2024 11:11 AM [facility] Hemoglobin 7.2(L) 13.5 - 17.5 g/dL LAB HEMETOLOGY METHOD 10/14/2024 11:11 AM [facility] Hematocrit 24.8(L) 42.0 - 54.0 % LAB HEMETOLOGY METHOD 10/14/2024 11:11 AM [facility] MCV 95.0 79.0 - 98.0 FL LAB HEMETOLOGY METHOD 10/14/2024 11:11 AM [facility] MCH 27.6 27.0 - 32.0 pcg LAB HEMETOLOGY METHOD 10/14/2024 11:[address] [facility] MCHC 29.0(L) 32.0 - 37.0 g/dL LAB HEMETOLOGY METHOD 10/14/2024 11:[address] [facility] RDW 16.8(H) 11.0 - 15.0 % LAB HEMETOLOGY METHOD 10/14/2024 11:[address] [facility] Platelets 218 130 - 400 K/mcL LAB HEMETOLOGY METHOD 10/14/2024 11:[address] [facility] MPV 9.7 7.0 - 11.0 FL LAB HEMETOLOGY METHOD 10/14/2024 11:[address] [facility] NRBC 0.0 <1.0 % LAB HEMETOLOGY METHOD 10/14/2024 11:[address] [facility] NRBC Absolute 0.00 <0.10 K/mcL LAB HEMETOLOGY METHOD 10/14/2024 11:[address] [facility] Blood Venous blood specimen / Unknown Venipuncture / Unknown 10/14/2024 7:07 AM EDT 10/14/2024 10:10 AM EDT us Tabby Bledsoe MD LAB BLOOD ORDERABLES Fin al Result [facility] [address] [place] [address], documented in this encounter Visit Diagnoses Diagnosis Bacteremia documented in this encounter Additional Health Concerns Infection Onset Date Last Indicated Resolved Time ESBL 06/22/2024 06/22/2024 documented as of this encounter Care Teams Forecast Analyst Relationship Specialty Start Date End Date Uday Sheehan MD [address] Donna [place] PCP - General Platform Consultant 12/19/16 documented as of this encounter
--- OUTSIDE RECORDS SUMMARY | 2024-11-07 12:17 | XMS_ITS | Encounter Summary ---
Author Organization [facility] Address [address] [place] [address] Care Team Providers Care Ed Tech Name Role Phone Uday Sheehan MD Primary Care Provider [phone] Encounter Details Date Type Department Care Team (Late st Contact Info) Description 08/21/2024 Lab Requisition [facility] - Main Lab [address] [place] [address] Tabby Bledsoe MD [address] [address] Anemia, unspecified Social History Tobacco Use Types [...] LAB CHEMISTRY METHOD 08/21/2024 11:26 AM EST [facility] Potassium 3.8 3.5 - [...] MD LAB BLOOD ORDERABLES Fin al Result [facility] [address] [place] [address], * (ABNORMAL) Complete blood count (08/21/2024 7:55 AM EST) [facility] WBC 6.5 4.8 - 10.8 K/mcL LAB [...] LAB HEMETOLOGY METHOD 08/21/2024 11:00 AM EST [facility] Blood Venous blood specimen / Unknown Venipuncture / Unknown 08/21/2024 7:55 AM EST 08/21/2024 10:41 AM EST us Tabby Bledsoe MD LAB BLOOD ORDERABLES Fin al Result [facility] [address] [place] [address], documented in this encounter Visit Diagnoses Diagnosis Anemia, unspecified documented in this encounter Additional Health Concerns Infection Onset Date Last Indicated Resolved Time ESBL 06/22/2024 06/22/2024 documented as of this encounter Care Teams Ed Tech Relationship Specialty Start Date End Date Uday Sheehan MD [address] [place] [address] Dr Alic[place]ayoke [place] PCP - General Tank Charger 12/19/16 documented as of this encounter
--- OUTSIDE RECORDS SUMMARY | 2024-11-07 12:17 | XMS_ITS | Encounter Summary ---
Author Organization [facility] Address [address] [place] [address] Care Team Providers Care Job Lithographer Name Role Phone Uday Sheehan MD Primary Care Provider [phone] Encounter Details Date Type Department Care Team (Late st Contact Info) Description 06/23/[address] [facility] - Main Lab [address] [place] [address] Pearl Garcia MD [address] [place] [address] Other retention of urine Social [...] reflex microscopic (06/22/2024 12:00 AM EST) Specific [place] Urine 1.013 1.003 - 1.030 LAB URINALYSIS - AUTOMATED METHOD 06/23/2024 12:51 PM [facility] pH, Urine 6.0 5.0 - 8.0 pH LAB URINALYSIS - AUTOMATED METHOD 06/23/2024 12:51 PM [facility] Leukocytes, Urine Large(A) Negative LAB URINALYSIS - AUTOMATED METHOD 06/23/2024 12:51 PM [facility] Nitrite, Urine Negative Negative LAB URINALYSIS - AUTOMATED METHOD 06/23/2024 12:51 PM [facility] Protein, Urine 100(A) <=Trace mg/dL LAB URINALYSIS - AUTOMATED METHOD 06/23/2024 12:51 PM [facility] Glucose, Urine Negative Negative mg/dL LAB URINALYSIS - AUTOMATED METHOD 06/23/2024 12:51 PM [facility] Ketones, Urine Negative Negative mg/dL LAB URINALYSIS - AUTOMATED METHOD 06/23/2024 12:51 PM [facility] Urobilinogen , Urine 0.2 0.2 - 1.0 mg/dL LAB URINALYSIS - AUTOMATED METHOD 06/23/2024 12:51 PM [facility] Bilirubin, Urine Negative Negative LAB URINALYSIS - AUTOMATED METHOD 06/23/2024 12:51 PM [facility] Blood, Urine Large(A) Negative LAB URINALYSIS - AUTOMATED METHOD 06/23/2024 12:51 PM [facility] RBC, Urine 32.8(H) 0 - 4 /HPF LAB URINALYSIS - AUTOMATED METHOD 06/23/2024 12:51 PM [facility] WBC, Urine 3,850.2(H) 0 - 4 /HPF LAB URINALYSIS - AUTOMATED METHOD 06/23/2024 12:51 PM [facility] Squamous Epithelial, Urine 20 0 - 60 /LPF LAB URINALYSIS - AUTOMATED METHOD 06/23/2024 12:51 PM [facility] Bacteria, Urine Many(A) Negative /HPF LAB URINALYSIS - AUTOMATED METHOD 06/23/2024 12:51 PM EST [facility] Hyaline Casts, Urine 2.9 0 - 3 /LPF LAB URINALYSIS - AUTOMATED METHOD 06/23/2024 12:51 PM EST [facility] Urine Urine specimen obtained by clean catch procedure / Unknown Non-blood Collection / Unknown 06/22/2024 06/23/2024 11:44 AM EST us Pearl Garcia MD LAB URINE ORDERABLES Final Resul t [facility] [address] [place] [address], * (ABNORMAL) Culture urine (06/22/2024 12:00 AM EST) Culture, Urine >100,000 CFU/mL Klebsiella pneumoniae ESBL(A) [place]ANKLIN 06/26/2024 7:51 AM EST [facility] Comment: THIS ORGANISM IS POSITIVE FOR EXTENDED SPECTRUM BETA-LACTAMASE (ESBL). ??EXTENDED SPECTRUM BETA-LACTAMASE ??PRODUCING ORGANISMS DEMONSTRATE DECREASED ACTIVITY WITH PENICILLILNS, CEPHALOSPORINS AND AZTREONAM. This is an edited result. Previous organism was Gram negative bacilli on 06/24/2024 at 1028 EST. Culture, Urine >100,000 CFU/mL Escherichia coli(A) FRANKLIN 06/26/2024 7:51 AM EST [facility] Comment: The organism value for [...] FRANKLIN 4 ug/ml: Susceptible Escherichia coli Cefoxitin FARNKLIN <=4 ug/ml: Susceptible Escherichia coli Ceftazidime FRANKLIN [...] MICROBIOLOGY - GENERAL ORDER KINSEY Final Result [facility] [address] [place] [address], documented in this encounter Visit Diagnoses Diagnosis Other retention of urine documented in this encounter Additional Health Concerns Infection Onset Date Last Indicated Resolved Time ESBL 06/22/2024 06/22/2024 documented as of this encounter Care Teams Job Lithographer Relationship Specialty Start Date End Date Uday Sheehan MD [address] [place] [address] Dr Donna [place] PCP - General Weight Checker 12/19/16 documented as of this encounter
--- OUTSIDE RECORDS SUMMARY | 2024-11-07 12:17 | XMS_ITS | Clinical Summary ---
Author Organization [facility] Address [address] [place] [address] Care Team Providers Care Soap Inspector Name Role Phone Uday Sheehan Primary Care Provider [phone] Allergies No known active allergies Medications acetaminophen [...] by mouth every 12 hours. 04/08/20 Active [id number] [id number]-[id number] (VIDHYA WITH COLLAGEN) 7-7-1.5 gram powder in [...] flushes 200ml q6h (D1: 03/31/24) Paroxysmal A-fib 03/28/2024 Assessment & Plan (04/02/2024 5:05 PM [...] CAD - amlodipine 10mg daily Systolic CHF 03/28/2024 Assessment & Plan (04/02/2024 5:05 PM [...] WBC of 7.4. - [facility] (percutaneous endoscopic gastrostomy) [...] consolidation LLL. O2 increased to 50% per CHILDREN'S ZOO CARETAKER: plugging secretions but not clogged at that [...] consolidation LLL. O2 increased to 50% per CHILDREN'S ZOO CARETAKER: plugging secretions but not clogged at that [...] Hydroxy / Vitamin D 1940 PTH 1940 Medicare AWV 02/15/1941 Urine Microalbumin 02/15/1950 Pneumococcal Vaccine: 50+ Years [...] complete this topic Procedures * Due to [place] state law, [...] to Health Maintenance Results * Due to [place] state law, this organization might not be sharing negative HIV tests. * (ABNORMAL) CBC Auto Differential (05/27/2024 10:09 AM EST) WBC 6.1 4.8 - 10.8 10*3/uL 05/27/2024 10:58 AM EST [facility] RBC 3.05(L) 4.70 - 6.10 10*6/uL 05/27/2024 10:58 AM EST [facility] Hemoglobin 8.4(L) 13.7 - 16.5 g/dL 05/27/2024 10:58 AM EST [facility] Hematocrit 26.6(L) 40.5 - 48.5 % 05/27/2024 10:58 AM EST [facility] MCV 87.2 80.0 - 94.0 fL 05/27/2024 10:58 AM EST [facility] MCH 27.5 26.0 - 34.0 pg 05/27/2024 10:58 AM EST [facility] MCHC 31.6 31.0 - 36.0 g/dL 05/27/2024 10:58 AM EST [facility] RDW 17.0(H) 12.0 - 15.0 % 05/27/2024 10:58 AM EST [facility] RDW Standard Deviation 54.3(H) 35.1 - 43.9 fL 05/27/2024 10:58 AM EST [facility] Platelets 147 140 - 440 10*3/uL 05/27/2024 10:58 AM EST [facility] MPV 10.1 9.4 - 12.4 fL 05/27/2024 10:58 AM EST [facility] Neutrophil % 57.4 50.0 - 75.0 % 05/27/2024 10:58 AM EST [facility] Immature Grans % 0.3 0.0 - 0.9 % 05/27/2024 10:58 AM EST [facility] Lymphocyte % 23.7 20.0 - 44.0 % 05/27/2024 10:58 AM EST [facility] Monocyte % 12.7 0.0 - 14.0 % 05/27/2024 10:58 AM EST [facility] Eosinophil % 5.6(H) 0.0 - 5.0 % 05/27/2024 10:58 AM EST [facility] Basophil % 0.3 0.0 - 2.0 % 05/27/2024 10:58 AM EST [facility] Neutrophil # 3.51 1.80 - 7.70 10*3/uL 05/27/2024 10:58 AM EST [facility] Immature Grans # <0.03 0.00 - 0.03 10*3/uL 05/27/2024 10:58 AM EST [facility] Lymphocyte # 1.50 1.00 - 4.75 10*3/uL 05/27/2024 10:58 AM EST [facility] Monocyte # 0.80 0.00 - 6.00 10*3/uL 05/27/2024 10:58 AM EST [facility] Eosinophil # 0.30 0.00 - 0.80 10*3/uL 05/27/2024 10:58 AM EST [facility] Basophil # <0.03 0.00 - 0.20 10*3/uL 05/27/2024 10:58 AM EST [facility] nRBC % 0.0 0 - 0 /100 WBCs 05/27/2024 10:58 AM EST [facility] nRBC # <0.01 0.00 - 0.13 10*3/uL 05/27/2024 10:58 AM EST [facility] Blood Structure of peripheral vein / Unknown Venipuncture / Unknown 05/27/2024 10:09 AM EST 05/27/2024 10:10 AM EST us Salo Whyte MD LAB BLOOD ORDERABLES Final Result Performing Organization Address City/State/[facility] Co de Phone Number [facility] [address] [place] [id number], [place] [phone] * (ABNORMAL) Comprehensive Metabolic Panel (05/27/2024 10:09 AM EST) NA 142 136 - 145 mmol/L 05/27/2024 11:11 AM EST [facility] K 3.9 3.5 - 5.1 mmol/L 05/27/2024 11:11 AM EST [facility] Cl 104 98 - 109 mmol/L 05/27/2024 11:11 AM EST [facility] CO2 30 22 - 32 mmol/L 05/27/2024 11:11 AM [facility] Anion Gap 12 >=0 05/27/2024 11:11 AM [facility] Glucose 99 60 - 99 mg/dL 05/27/2024 11:11 AM [facility] Creatinine 1.71(H) 0.50 - 1.12 mg/dL 05/27/2024 11:11 AM [facility] Calcium 9.4 8.4 - 10.4 mg/dL 05/27/2024 11:11 AM [facility] Total Protein 6.0(L) 6.6 - 8.7 g/dL 05/27/2024 11:11 AM [facility] Albumin 2.9(L) 3.5 - 5.0 g/dL 05/27/2024 11:11 AM [facility] Bilirubin, Total 0.3 0.2 - 1.2 mg/dL 05/27/2024 11:11 AM [facility] Alkaline Phosphatase 113 40 - 129 U/L 05/27/2024 11:11 AM [facility] AST 18 0 - 40 U/L 05/27/2024 11:11 AM [facility] ALT 12 <=41 U/L 05/27/2024 11:11 AM [facility] BUN 41(H) 8 - 23 mg/dL 05/27/2024 11:11 AM [facility] eGFR 39(L) >=60 mL/min/1. 73m2 05/27/2024 11:11 AM EST [facility] Comment:The estimated glomer ular [...] - 4.2 g/dL 05/27/2024 11:11 AM EST [facility] A/G Ratio 0.9(L) 1.5 - 3.0 05/27/2024 11:11 AM EST [facility] Blood Structure of peripheral vein / Unknown Venipuncture / Unknown 05/27/2024 10:09 AM EST 05/27/2024 10:10 AM EST us Salo Whyte MD LAB BLOOD ORDERABLES Final Result [facility] [address] [address], * Phosphorus (04/08/2024 5:21 AM EDT) Phosphorus 4.2 2.5 - 4.5 mg/dL 04/08/2024 5:46 AM EDT [facility] Blood Structure of peripheral vein / Unknown Venipuncture / Unknown 04/08/2024 5:21 AM EDT 04/08/2024 5:24 AM EDT us Jori Longo NP LAB BLOOD ORDERABLES Fi nal Result [facility] [address] [place] [address], from Last 3 Months or Most Recently Relevant to Health Maintenance Additional Health Concerns Infection Onset Date Last Indicated 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 MEDICARE Advance Directives Documents on File Type Date Recorded Patient Supervisor Product Inspection Expl anation Health Care Proxy 03/31/2024 10:53 [...] Atkinson Daughter Next of Kin Care Teams Soap Inspector Relationship Specialty Start Date End Date Uday Sheehan [address] [place] [address] [place] [address] PCP - General Internal Medicine 03/27/24
--- OUTSIDE RECORDS SUMMARY | 2024-11-07 12:17 | XMS_ITS | Encounter Summary ---
Author Organization [facility] Address [address] [place] [address] Care Team Providers Care Supervisor Chemical Name Role Phone Uday Sheehan MD Primary Care Provider [phone] Encounter Details Date Type Department Care Team (Late st Contact Info) Description 06/11/2024 Lab Requisition [facility] - Main Lab [address] [place] [address] Zak Zuluaga MD [address] [place] [address] Anemia, unspecified Social History Tobacco Use Types [...] LAB CHEMISTRY METHOD 06/11/2024 10:54 AM EST [facility] Potassium 4.4 3.5 - 5.5 mmol/L LAB CHEMISTRY METHOD 06/11/2024 10:[address] [facility] Chloride 112(H) 96 - 110 mmol/L LAB CHEMISTRY METHOD 06/11/2024 10:[address] [facility] CO2 23 21 - 32 mmol/L LAB CHEMISTRY METHOD 06/11/2024 10:[address] [facility] Anion Gap 10 3 - 11 LAB CHEMISTRY METHOD 06/11/2024 10:[address] [facility] Glucose 88 70 - 100 mg/dL LAB CHEMISTRY METHOD 06/11/2024 10:[address] [facility] BUN 42(H) 5 - 25 mg/dL LAB CHEMISTRY METHOD 06/11/2024 10:[address] [facility] Creatinine 2.55(H) 0.70 - 1.30 mg/dL LAB CHEMISTRY METHOD 06/11/2024 10:[address] [facility] eGFR 24(L) >=60 mL/min/1. 73m2 LAB CHEMISTRY METHOD 06/11/2024 10:[address] [facility] Comment:Calculation based on the??Chronic Kidney Disease Epidemiology Collaboration (CKD-EPI) equation refit??without adjustment for race. BUN/Creatinine Ratio 16.5 LAB CHEMISTRY METHOD 06/11/2024 10:[address] [facility] Calcium 7.9(L) 8.5 - 10.5 mg/dL LAB CHEMISTRY METHOD 06/11/2024 10:[address] [facility] Blood Venous blood specimen / Unknown Venipuncture / Unknown 06/11/2024 8:24 AM EST 06/11/2024 9:58 AM EST us Zak Zuluaga MD LAB BLOOD ORDERABLES Final Resul t [facility] [address] [place] [address], * (ABNORMAL) Complete blood count (06/11/2024 8:24 AM EST) [facility] WBC 5.5 4.8 - 10.8 K/mcL LAB HEMETOLOGY METHOD 06/11/2024 10:[address] [facility] RBC 2.90(L) 4.50 - 5.50 M/mcL LAB HEMETOLOGY METHOD 06/11/2024 10:[address] [facility] Hemoglobin 7.7(L) 13.5 - 17.5 g/dL LAB HEMETOLOGY METHOD 06/11/2024 10:[address] [facility] Hematocrit 25.5(L) 42.0 - 54.0 % LAB HEMETOLOGY METHOD 06/11/2024 10:[address] [facility] MCV 87.6 79.0 - 98.0 FL LAB HEMETOLOGY METHOD 06/11/2024 10:[address] [facility] MCH 26.5(L) 27.0 - 32.0 pcg LAB HEMETOLOGY METHOD 06/11/2024 10:[address] [facility] MCHC 30.2(L) 32.0 - 37.0 g/dL LAB HEMETOLOGY METHOD 06/11/2024 10:[address] [facility] RDW 16.7(H) 11.0 - 15.0 % LAB HEMETOLOGY METHOD 06/11/2024 10:[address] [facility] Platelets 176 130 - 400 K/mcL LAB HEMETOLOGY METHOD 06/11/2024 10:[address] [facility] MPV 10.7 7.0 - 11.0 FL LAB HEMETOLOGY METHOD 06/11/2024 10:[address] [facility] NRBC 0.0 <1.0 % LAB HEMETOLOGY METHOD 06/11/2024 10:[address] [facility] NRBC Absolute 0.00 <0.10 K/mcL LAB HEMETOLOGY METHOD 06/11/2024 10:35 AM EST [facility] Blood Venous blood specimen / Unknown Venipuncture / Unknown 06/11/2024 8:24 AM EST 06/11/2024 9:58 AM EST us Zak Zuluaga MD LAB BLOOD ORDERABLES Final Resul t [facility] [address] [place] [address], documented in this encounter Visit Diagnoses Diagnosis Anemia, unspecified documented in this encounter Additional Health Concerns Infection Onset Date Last Indicated Resolved Time ESBL 06/22/2024 06/22/2024 documented as of this encounter Care Teams Supervisor Chemical Relationship Specialty Start Date End Date Uday Sheehan MD [address] [place] [address] Dr Donna [place] PCP - General Cutter Machine Tender 12/19/16 documented as of this encounter
--- OUTSIDE RECORDS SUMMARY | 2024-11-07 12:17 | XMS_ITS | Encounter Summary ---
Author Organization [facility] Address [address] [place] [address] Care Team Providers Care Information Assurance Name Role Phone Uday Sheehan MD Primary Care Provider [phone] Encounter Details Date Type Department Care Team (Late st Contact Info) Description 10/19/2024 Lab Requisition [facility] - Main Lab [address] [facility] [place] [address] Tabby Bledsoe MD [address] [address] Bacteremia Social History Tobacco Use Types Packs/Day [...] as of this encounter Care Teams Information Assurance Relationship Specialty Start Date End Date Uday Sheehan MD [address] [place] [address] PCP - General Die Sinker 12/19/16 documented as of this encounter
--- OUTSIDE RECORDS SUMMARY | 2024-11-07 12:17 | XMS_ITS | Encounter Summary ---
Author Organization [facility] Address [address] [place] [address] Care Team Providers Care Branch Operations Specialist Name Role Phone Uday Sheehan MD Primary Care Provider [phone] Encounter Details Date Type Department Care Team (Late st Contact Info) Description 06/12/2024 Lab Requisition [facility] - Main Lab [address] [place] [address] eParl Garcia MD [address] [place] [address] Abnormal results of liver function [...] LAB CHEMISTRY METHOD 06/12/2024 12:[address] [facility] Blood Venous blood specimen / Unknown Venipuncture / Unknown 06/12/2024 9:20 AM EST 06/12/2024 11:19 AM EST us Pearl Garcia MD LAB BLOOD ORDERABLES Final Resul t Performing Organization Address [facility] Co de Phone Number [facility] [address] [place] [address], [place] [phone] * (ABNORMAL) Triiodothyronine free (06/12/2024 9:20 AM EST) T3, Free 148(L) 230 - 420 pcg/dL LAB CHEMISTRY METHOD 06/12/2024 12:[address] [facility] Blood Venous blood specimen / Unknown Venipuncture / Unknown 06/12/2024 9:20 AM EST 06/12/2024 11:19 AM EST us Pearl Garcia MD LAB BLOOD ORDERABLES Final Resul t [facility] [address] [place] [address], [place] [phone] * (ABNORMAL) Thyroid stimulating hormone (06/12/2024 9:20 AM EST) TSH 4.91(H) 0.40 - 4.00 mcIU/mL LAB CHEMISTRY METHOD 06/12/2024 12:[address] [facility] Blood Venous blood specimen / Unknown Venipuncture / Unknown 06/12/2024 9:20 AM EST 06/12/2024 11:19 AM EST us Pearl Garcia MD LAB BLOOD ORDERABLES Final Resul t Performing Organization Address [facility] de Phone Number [facility] [address] [place] [address], [place] [phone] * (ABNORMAL) Alanine aminotransferase (06/12/2024 9:20 AM EST) ALT (SGPT) 127(H) 10 - 60 unit/L LAB CHEMISTRY METHOD 06/12/2024 12:[address] [facility] Blood Venous blood specimen / Unknown Venipuncture / Unknown 06/12/2024 9:20 AM EST 06/12/2024 11:19 AM EST us Pearl Garcia MD LAB BLOOD ORDERABLES Final Resul t Performing Organization Address [facility] de Phone Number [facility] [address] [place] [address], [place] [phone] * (ABNORMAL) Aspartate aminotransferase (06/12/2024 9:20 AM EST) AST (SGOT) 185(H) 10 - 42 unit/L LAB CHEMISTRY METHOD 06/12/2024 12:[address] [facility] Blood Venous blood specimen / Unknown Venipuncture / Unknown 06/12/2024 9:20 AM EST 06/12/2024 11:19 AM EST us Pearl Garcia MD LAB BLOOD ORDERABLES Final Resul t Performing Organization Address [facility] de Phone Number [facility] [address] [place] [address], [place] [phone] documented in this encounter Visit Diagnoses Diagnosis Abnormal results of liver function studies Nonspecific abnormal results of liver function study Hypothyroidism, unspecified documented in this encounter Additional Health Concerns Infection Onset Date Last Indicated Resolved Time ESBL 06/22/2024 06/22/2024 documented as of this encounter Care Teams Branch Operations Specialist Relationship Specialty Start Date End Date Uday Sheehan MD [address] [place] [address] Dr Donna [place] PCP - General Hotel Assistant General Manager 12/19/16 documented as of this encounter
--- OUTSIDE RECORDS SUMMARY | 2024-11-07 12:17 | XMS_ITS | Encounter Summary ---
Author Organization [facility] Address [address] [place] [address] Care Team Providers Care Heel Boom Operator Name Role Phone Uday Sheehan Primary Care Provider Encounter Details Date Type Department Care Team (Late st Contact Info) Description 05/21/2024 Orders Only [facility] Interventional Radiology [address] [place] [address] Cedric Blank MD [address] [place] [address] Social History Tobacco Use Types Packs/Day Years [...] documented as of this encounter Care Teams Heel Boom Operator Relationship Specialty Start Date End Date Uday Sheehan [address] [place] [address] [place] [address] PCP - General Internal Medicine 03/27/24 documented as of this encounter
--- OUTSIDE RECORDS SUMMARY | 2024-11-07 12:17 | XMS_ITS | Encounter Summary ---
Author Organization [facility] Address [address] [place] [address] Care Team Providers Care Automobile Insurance Claim Examiner Name Role Phone Uday Sheehan MD Primary Care Provider [phone] Encounter Details Date Type Department Care Team (Late st Contact Info) Description 06/21/2024 Lab Requisition [facility] - Main Lab [address] [place] [address] Zak Zuluaga MD [address] [place] [address] Unspecified kidney failure; COVID-19 Social History Tobacco [...] LAB CHEMISTRY METHOD 06/21/2024 11:[address] [facility] Potassium 4.3 3.5 - 5.5 mmol/L LAB CHEMISTRY METHOD 06/21/2024 11:[address] [facility] Chloride 114(H) 96 - 110 mmol/L LAB CHEMISTRY METHOD 06/21/2024 11:17 AM [facility] CO2 23 21 - 32 mmol/L LAB CHEMISTRY METHOD 06/21/2024 11:17 AM [facility] Anion Gap 10 3 - 11 LAB CHEMISTRY METHOD 06/21/2024 11:17 AM [facility] Glucose 90 70 - 100 mg/dL LAB CHEMISTRY METHOD 06/21/2024 11:17 AM [facility] BUN 65(H) 5 - 25 mg/dL LAB CHEMISTRY METHOD 06/21/2024 11:17 AM [facility] Creatinine 3.53(H) 0.70 - 1.30 mg/dL LAB CHEMISTRY METHOD 06/21/2024 11:17 AM [facility] eGFR 16(L) >=60 mL/min/1. 73m2 LAB CHEMISTRY METHOD 06/21/2024 11:17 AM [facility] Comment:Calculation based on the??Chronic Kidney Disease Epidemiology Collaboration (CKD-EPI) equation refit??without adjustment for race. BUN/Creatinine Ratio 18.4 LAB CHEMISTRY METHOD 06/21/2024 11:17 AM [facility] Calcium 8.5 8.5 - 10.5 mg/dL LAB CHEMISTRY METHOD 06/21/2024 11:17 AM [facility] Blood Venous blood specimen / Unknown Venipuncture / Unknown 06/21/2024 6:57 AM EST 06/21/2024 9:08 AM EST us Zak Zuluaga MD LAB BLOOD ORDERABLES Final Resul t [facility] [address] [place] [address], documented in this encounter Visit Diagnoses Diagnosis Unspecified kidney failure COVID-19 documented in this encounter Additional Health Concerns Infection Onset Date Last Indicated Resolved Time ESBL 06/22/2024 06/22/2024 documented as of this encounter Care Teams Automobile Insurance Claim Examiner Relationship Specialty Start Date End Date Uday Sheehan MD [address] [place] [address] Dr Donna [place] PCP - General Shipping Track Supervisor 12/19/16 documented as of this encounter
--- OUTSIDE RECORDS SUMMARY | 2024-11-07 12:17 | XMS_ITS | Referral Summary ---
Author Organization [facility] Address [address] [place] [address] Care Team Providers Care Automotive Refinish Technician Name Role Phone Uday Sheehan Primary Care Provider [phone] Allergies No known active allergies Medications acetaminophen [...] by mouth every 12 hours. 04/08/20 Active [id number] (VIDHYA WITH COLLAGEN) 7-7-1.5 gram powder in [...] of 7.4. - [facility] PEG (percutaneous endoscopic gastrostomy) status [...] consolidation LLL. O2 increased to 50% per LABORATORY APPARATUS GLASS GRINDER: plugging secretions but not clogged at that [...] consolidation LLL. O2 increased to 50% per LABORATORY APPARATUS GLASS GRINDER: plugging secretions but not clogged at that [...] Not on file Procedures * Due to [facility] law, this organization might not be sharing [...] to Health Maintenance Results * Due to [place] [employer] law, this organization might not be sharing negative HIV tests. * (ABNORMAL) CBC Auto Differential (05/27/2024 10:09 AM EST) WBC 6.1 4.8 - 10.8 10*3/uL 05/27/2024 10:58 AM EST [facility] RBC 3.05(L) 4.70 - 6.10 10*6/uL 05/27/2024 10:58 AM EST [facility] Hemoglobin 8.4(L) 13.7 - 16.5 g/dL 05/27/2024 10:58 AM EST [facility] Hematocrit 26.6(L) 40.5 - 48.5 % 05/27/2024 10:58 AM EST [facility] MCV 87.2 80.0 - 94.0 fL 05/27/2024 10:58 AM EST [facility] MCH 27.5 26.0 - 34.0 pg 05/27/2024 10:58 AM EST [facility] MCHC 31.6 31.0 - 36.0 g/dL 05/27/2024 10:58 AM EST [facility] RDW 17.0(H) 12.0 - 15.0 % 05/27/2024 10:58 AM [facility] RDW Standard Deviation 54.3(H) 35.1 - 43.9 fL 05/27/2024 10:58 AM [facility] Platelets 147 140 - 440 10*3/uL 05/27/2024 10:58 AM [facility] MPV 10.1 9.4 - 12.4 fL 05/27/2024 10:58 AM [facility] Neutrophil % 57.4 50.0 - 75.0 % 05/27/2024 10:58 AM [facility] Immature Grans % 0.3 0.0 - 0.9 % 05/27/2024 10:58 AM [facility] Lymphocyte % 23.7 20.0 - 44.0 % 05/27/2024 10:58 AM [facility] Monocyte % 12.7 0.0 - 14.0 % 05/27/2024 10:58 AM [facility] Eosinophil % 5.6(H) 0.0 - 5.0 % 05/27/2024 10:58 AM [facility] Basophil % 0.3 0.0 - 2.0 % 05/27/2024 10:58 AM [facility] Neutrophil # 3.51 1.80 - 7.70 10*3/uL 05/27/2024 10:58 AM [facility] Immature Grans # <0.03 0.00 - 0.03 10*3/uL 05/27/2024 10:58 AM [facility] Lymphocyte # 1.50 1.00 - 4.75 10*3/uL 05/27/2024 10:58 AM [facility] Monocyte # 0.80 0.00 - 6.00 10*3/uL 05/27/2024 10:58 AM [facility] Eosinophil # 0.30 0.00 - 0.80 10*3/uL 05/27/2024 10:58 AM [facility] Basophil # <0.03 0.00 - 0.20 10*3/uL 05/27/2024 10:58 AM EST [facility] nRBC % 0.0 0 - 0 /100 WBCs 05/27/2024 10:58 AM EST [facility] nRBC # <0.01 0.00 - 0.13 10*3/uL 05/27/2024 10:58 AM EST [facility] Blood Structure of peripheral vein / Unknown Venipuncture / Unknown 05/27/2024 10:09 AM EST 05/27/2024 10:10 AM EST us Salo Whyte MD LAB BLOOD ORDERABLES Final Result [facility] [address] [facility] [address] [place] [address], [place] [phone] * (ABNORMAL) Comprehensive Metabolic Panel (05/27/2024 10:09 AM EST) NA 142 136 - 145 mmol/L 05/27/2024 11:11 AM EST [facility] K 3.9 3.5 - 5.1 mmol/L 05/27/2024 11:11 AM EST [facility] Cl 104 98 - 109 mmol/L 05/27/2024 11:11 AM EST [facility] CO2 30 22 - 32 mmol/L 05/27/2024 11:11 AM EST [facility] Anion Gap 12 >=0 05/27/2024 11:11 AM EST [facility] Glucose 99 60 - 99 mg/dL 05/27/2024 11:11 AM EST [facility] Creatinine 1.71(H) 0.50 - 1.12 mg/dL 05/27/2024 11:11 AM EST [facility] Calcium 9.4 8.4 - 10.4 mg/dL 05/27/2024 11:11 AM EST [facility] Total Protein 6.0(L) 6.6 - 8.7 g/dL 05/27/2024 11:11 AM EST [facility] Albumin 2.9(L) 3.5 - 5.0 g/dL 05/27/2024 11:11 AM EST [facility] Bilirubin, Total 0.3 0.2 - 1.2 mg/dL 05/27/2024 11:11 AM EST [facility] Alkaline Phosphatase 113 40 - 129 U/L 05/27/2024 11:11 AM EST [facility] AST 18 0 - 40 U/L 05/27/2024 11:11 AM EST [facility] ALT 12 <=41 U/L 05/27/2024 11:11 AM EST [facility] BUN 41(H) 8 - 23 mg/dL 05/27/2024 11:11 AM EST [facility] eGFR 39(L) >=60 mL/min/1. 73m2 05/27/2024 11:11 AM EST [facility] Comment:The estimated glomer ular filtration rate [...] - 4.2 g/dL 05/27/2024 11:11 AM EST [facility] A/G Ratio 0.9(L) 1.5 - 3.0 05/27/2024 11:11 AM EST [facility] Blood Structure of peripheral vein / Unknown Venipuncture / Unknown 05/27/2024 10:09 AM EST 05/27/2024 10:10 AM EST us Salo Whyte MD LAB BLOOD ORDERABLES Final Result [facility] [address] [place] [address], * Phosphorus (04/08/2024 5:21 AM EDT) Phosphorus 4.2 2.5 - 4.5 mg/dL 04/08/2024 5:46 AM EDT [facility] Blood Structure of peripheral vein / Unknown Venipuncture / Unknown 04/08/2024 5:21 AM EDT 04/08/2024 5:24 AM EDT Jori Longo NP LAB BLOOD ORDERABLES Fi nal Result [facility] [address] [place] [address], from Last 3 Months or Most Recently Relevant to Health Maintenance Additional Health Concerns Infection Onset Date Last Indicated 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
--- OUTSIDE RECORDS SUMMARY | 2024-11-07 12:17 | XMS_ITS | Encounter Summary ---
Author Organization [facility] Address [address] [place] [address] Care Team Providers Care Monitoring Manager Name Role Phone Uday Sheehan Primary Care Provider [phone] Encounter Details Date Type Department Care Team (Late st Contact Info) Description 05/28/2024 Lab Requisition [facility] [address] [place] [address] Valarie Pierson MD [address] [place] [address] Acute and chronic respiratory failure with hypoxia; [...] this encounter Procedures * Due to [place] [employer] law, this organization might not be sharing negative HIV tests. Procedure Name Priority Date/Time Associated Diagnosis Comments TROPONIN T HIGH SENSITIVITY Routine 05/28/2024 2:28 PM EST Acute and chronic respiratory failure with hypoxia (HCC) No diagnosis documented in this encounter Results * Due to [place] [employer] law, this organization might not be sharing negative HIV tests. * (ABNORMAL) Troponin T, High Sensitivity (05/28/2024 2:28 PM EST) Troponin T High Sensitivity 35(H) 6 - 22 ng/L 05/28/2024 3:30 PM EST [facility] Comment: Mp-Zpjqtngg-L level of 52 ng/L or higher at [...] be evaluated in line with the 4th Dix Definition of AMI. Troponin baseline and serial [...] LAB BLOOD ORDERABLES Final Res ult [facility] [address] [place] [address], documented in this encounter Visit Diagnoses Diagnosis Acute and chronic respiratory failure with hypoxia (HCC) No diagnosis documented in this encounter Additional Health Concerns Infection Onset Date Last Indicated Resolved Time Multidrug resistant organisms MRSA 03/25/20242023 documented as of this encounter Care Teams Monitoring Manager Relationship Specialty Start Date End Date Uday Sheehan [address] [place] [address] [place] [address] PCP - General Internal Medicine 03/27/24 documented as of this encounter
--- OUTSIDE RECORDS SUMMARY | 2024-11-07 12:17 | XMS_ITS | Encounter Summary ---
Author Organization [facility] Address [address] [place] [address] Care Team Providers Care Press Officer Name Role Phone Uday Sheehan Primary Care Provider [phone] Encounter Details Date Type Department Care Team (Late st Contact Info) Description 05/27/2024 Lab Requisition [facility] [address] [place] [address] Salo Whyte MD [address] [place] [address] Acute and chronic respiratory failure with hypoxia; [...] this encounter Procedures * Due to [place] state law, this organization might not be sharing negative HIV tests. Procedure Name Priority Date/Time Associated Diagnosis Comments CBC AUTO DIFFERENTIAL Routine 05/27/2024 10:09 AM EST Acute and chronic respiratory failure with hypoxia (HCC) No diagnosis COMPREHENSIVE METABOLIC PANEL Routine 05/27/2024 10:09 AM EST Acute and chronic respiratory failure with hypoxia (HCC) No diagnosis documented in this encounter Results * Due to [place] state law, this organization might not be sharing negative HIV tests. * (ABNORMAL) CBC Auto Differential (05/27/2024 10:09 AM EST) WBC 6.1 4.8 - 10.8 10*3/uL 05/27/2024 10:58 AM EST [facility] RBC 3.05(L) 4.70 - 6.10 10*6/uL 05/27/2024 10:58 AM EST [facility] Hemoglobin 8.4(L) 13.7 - 16.5 g/dL 05/27/2024 10:58 AM EST [facility] Hematocrit 26.6(L) 40.5 - 48.5 % 05/27/2024 10:58 AM EST [facility] MCV 87.2 80.0 - 94.0 fL 05/27/2024 10:58 AM EST [facility] MCH 27.5 26.0 - 34.0 pg 05/27/2024 10:58 AM EST [facility] MCHC 31.6 31.0 - 36.0 g/dL 05/27/2024 10:58 AM EST [facility] RDW 17.0(H) 12.0 - 15.0 % 05/27/2024 10:58 AM EST [facility] RDW Standard Deviation 54.3(H) 35.1 - 43.9 fL 05/27/2024 10:58 AM EST [facility] Platelets 147 140 - 440 10*3/uL 05/27/2024 10:58 AM EST [facility] MPV 10.1 9.4 - 12.4 fL 05/27/2024 10:58 AM EST [facility] Neutrophil % 57.4 50.0 - 75.0 % 05/27/2024 10:58 AM EST [facility] Immature Grans % 0.3 0.0 - 0.9 % 05/27/2024 10:58 AM [facility] Lymphocyte % 23.7 20.0 - 44.0 % 05/27/2024 10:58 AM EST [facility] Monocyte % 12.7 0.0 - 14.0 % 05/27/2024 10:58 AM EST [facility] Eosinophil % 5.6(H) 0.0 - 5.0 % 05/27/2024 10:58 AM EST [facility] Basophil % 0.3 0.0 - 2.0 % 05/27/2024 10:58 AM EST [facility] Neutrophil # 3.51 1.80 - 7.70 10*3/uL 05/27/2024 10:58 AM EST [facility] Immature Grans # <0.03 0.00 - 0.03 10*3/uL 05/27/2024 10:58 AM EST [facility] Lymphocyte # 1.50 1.00 - 4.75 10*3/uL 05/27/2024 10:58 AM EST [facility] Monocyte # 0.80 0.00 - 6.00 10*3/uL 05/27/2024 10:58 AM EST [facility] Eosinophil # 0.30 0.00 - 0.80 10*3/uL 05/27/2024 10:58 AM EST [facility] Basophil # <0.03 0.00 - 0.20 10*3/uL 05/27/2024 10:58 AM EST [facility] nRBC % 0.0 0 - 0 /100 WBCs 05/27/2024 10:58 AM EST [facility] nRBC # <0.01 0.00 - 0.13 10*3/uL 05/27/2024 10:58 AM EST [facility] Blood Structure of peripheral vein / Unknown Venipuncture / Unknown 05/27/2024 10:09 AM EST 05/27/2024 10:10 AM EST us Salo Whyte MD LAB BLOOD ORDERABLES Final Result Performing Organization Address City/State/[facility] Co de Phone Number [facility] [address] [place] [address] [address] [place] [address], [place] [phone] * (ABNORMAL) Comprehensive Metabolic Panel (05/27/2024 10:09 AM EST) NA 142 136 - 145 mmol/L 05/27/2024 11:11 AM EST [facility] K 3.9 3.5 - 5.1 mmol/L 05/27/2024 11:11 AM EST [facility] Cl 104 98 - 109 mmol/L 05/27/2024 11:11 AM EST [facility] CO2 30 22 - 32 mmol/L 05/27/2024 11:11 AM EST [facility] Anion Gap 12 >=0 05/27/2024 11:11 AM EST [facility] Glucose 99 60 - 99 mg/dL 05/27/2024 11:11 AM EST [facility] Creatinine 1.71(H) 0.50 - 1.12 mg/dL 05/27/2024 11:11 AM EST [facility] Calcium 9.4 8.4 - 10.4 mg/dL 05/27/2024 11:11 AM [facility] Total Protein 6.0(L) 6.6 - 8.7 g/dL 05/27/2024 11:11 AM EST [facility] Albumin 2.9(L) 3.5 - 5.0 g/dL 05/27/2024 11:11 AM EST [facility] Bilirubin, Total 0.3 0.2 - 1.2 mg/dL 05/27/2024 11:11 AM EST [facility] Alkaline Phosphatase 113 40 - 129 U/L 05/27/2024 11:11 AM EST [facility] AST 18 0 - 40 U/L 05/27/2024 11:11 AM EST [facility] ALT 12 <=41 U/L 05/27/2024 11:11 AM EST [facility] BUN 41(H) 8 - 23 mg/dL 05/27/2024 11:11 AM EST [facility] eGFR 39(L) >=60 mL/min/1. 73m2 05/27/2024 11:11 AM EST [facility] Comment:The estimated glomer ular [...] - 4.2 g/dL 05/27/2024 11:11 AM EST [facility] A/G Ratio 0.9(L) 1.5 - 3.0 05/27/2024 11:11 AM EST [facility] Blood Structure of peripheral vein / Unknown Venipuncture / Unknown 05/27/2024 10:09 AM EST 05/27/2024 10:10 AM EST Salo Whyte MD LAB BLOOD ORDERABLES Final Result Performing Organization Address City/State/[facility] Co de Phone Number [facility] [address] [facility] [address] [place] [address], documented in this encounter Visit Diagnoses Diagnosis Acute and chronic respiratory failure with hypoxia (HCC) No diagnosis documented in this encounter Additional Health Concerns Infection Onset Date Last Indicated Resolved Time Multidrug resistant organisms MRSA 03/25/20242023 documented as of this encounter Care Teams Press Officer Relationship Specialty Start Date End Date Uday Sheehan [address] [place] [address] [place] [address] PCP - General Internal Medicine 03/27/24 documented as of this encounter
--- OUTSIDE RECORDS SUMMARY | 2024-11-07 12:17 | XMS_ITS | Encounter Summary ---
Author Organization [facility] Address [address] [place] [address] Care Team Providers Care Cashier Self Service Gasoline Name Role Phone Uday Sheehan Primary Care Provider [phone] Encounter Details Date Type Department Care Team (Late st Contact Info) Description 04/22/2024 Lab Requisition [facility] [address] [place] [address] Salo Whyte MD [address] [place] [address] Acute and chronic respiratory failure with hypoxia; [...] - 4.200 uIU/mL 04/22/2024 10:11 AM EDT [facility] Blood Structure of peripheral vein / Unknown 04/22/2024 9:32 AM EDT 04/22/2024 9:33 AM EDT us Salo Whyte MD LAB BLOOD ORDERABLES Final Result Performing Organization Address City/State/[facility] Co de Phone Number [facility] [address] [place] [address] [address] [place] [address], [place] [phone] * T4, Free (04/22/2024 9:32 AM EDT) Free T4 1.25 0.80 - 1.80 ng/dL 04/22/2024 10:11 AM EDT [facility] Comment: Females: (ng/dL) First Trimester ? [...] Whyte MD LAB BLOOD ORDERABLES Final Result [facility] [address] [place] [address] [address] [place] [address], [place] [phone] * (ABNORMAL) CBC Auto Differential (04/22/2024 9:32 AM EDT) WBC 5.8 4.8 - 10.8 10*3/uL 04/22/2024 9:53 AM EDT [facility] RBC 2.96(L) 4.70 - 6.10 10*6/uL 04/22/2024 9:53 AM EDT [facility] Hemoglobin 8.2(L) 13.7 - 16.5 g/dL 04/22/2024 9:53 AM EDT [facility] Hematocrit 25.7(L) 40.5 - 48.5 % 04/22/2024 9:53 AM EDT [facility] MCV 86.8 80.0 - 94.0 fL 04/22/2024 9:53 AM EDT [facility] MCH 27.7 26.0 - 34.0 pg 04/22/2024 9:53 AM EDT [facility] MCHC 31.9 31.0 - 36.0 g/dL 04/22/2024 9:53 AM EDT [facility] RDW 16.4(H) 12.0 - 15.0 % 04/22/2024 9:53 AM EDT [facility] RDW Standard Deviation 52.1(H) 35.1 - 43.9 fL 04/22/2024 9:53 AM EDT [facility] Platelets 182 140 - 440 10*3/uL 04/22/2024 9:53 AM EDT [facility] MPV 10.8 9.4 - 12.4 fL 04/22/2024 9:53 AM EDT [facility] Neutrophil % 57.5 50.0 - 75.0 % 04/22/2024 9:53 AM EDT [facility] Immature Grans % 0.2 0.0 - 0.9 % 04/22/2024 9:53 AM EDT [facility] Lymphocyte % 21.1 20.0 - 44.0 % 04/22/2024 9:53 AM EDT [facility] Monocyte % 15.7(H) 0.0 - 14.0 % 04/22/2024 9:53 AM EDT [facility] Eosinophil % 5.0 0.0 - 5.0 % 04/22/2024 9:53 AM EDT [facility] Basophil % 0.5 0.0 - 2.0 % 04/22/2024 9:53 AM EDT [facility] Neutrophil # 3.32 1.80 - 7.70 10*3/uL 04/22/2024 9:53 AM EDT [facility] Immature Grans # <0.03 0.00 - 0.03 10*3/uL 04/22/2024 9:53 AM EDT [facility] Lymphocyte # 1.20 1.00 - 4.75 10*3/uL 04/22/2024 9:53 AM EDT [facility] Monocyte # 0.90 0.00 - 6.00 10*3/uL 04/22/2024 9:53 AM EDT [facility] Eosinophil # 0.30 0.00 - 0.80 10*3/uL 04/22/2024 9:53 AM EDT [facility] Basophil # <0.03 0.00 - 0.20 10*3/uL 04/22/2024 9:53 AM EDT [facility] nRBC % 0.0 0 - 0 /100 WBCs 04/22/2024 9:53 AM EDT [facility] nRBC # <0.01 0.00 - 0.13 10*3/uL 04/22/2024 9:53 AM EDT [facility] Blood Structure of peripheral vein / Unknown 04/22/2024 9:32 AM EDT 04/22/2024 9:33 AM EDT Salo Whyte MD LAB BLOOD ORDERABLES Final Result Performing Organization Address [facility] Co de Phone Number [facility] [address] [address], [place] [phone] * N-terminal ProBrain Natriuretic Peptide - [facility] & MEM/ESTELA/Forrest Only (04/22/2024 9:32 AM EDT) Pro-B-Type Natriuretic Peptide 435 <=1,800 pg/mL 04/22/2024 10:42 AM EDT [facility] Comment: RULE IN CHF >/= 450 [...] BLOOD ORDERABLES Final Result Performing Organization Address [facility]/ZIP Co de Phone Number [facility] [address] [address], [place] [phone] * (ABNORMAL) Comprehensive Metabolic Panel (04/22/2024 9:32 AM EDT) NA 139 136 - 145 mmol/L 04/22/2024 10:11 AM EDT [facility] K 3.9 3.5 - 5.1 mmol/L 04/22/2024 10:11 AM EDT [facility] Cl 96(L) 98 - 109 mmol/L 04/22/2024 10:11 AM EDT [facility] CO2 33(H) 22 - 32 mmol/L 04/22/2024 10:11 AM EDT [facility] Anion Gap 14 >=0 04/22/2024 10:11 AM [facility] Glucose 98 60 - 99 mg/dL 04/22/2024 10:11 AM EDT [facility] Creatinine 1.43(H) 0.50 - 1.12 mg/dL 04/22/2024 10:11 AM EDT [facility] Calcium 9.9 8.4 - 10.4 mg/dL 04/22/2024 10:11 AM [facility] Total Protein 6.3(L) 6.6 - 8.7 g/dL 04/22/2024 10:11 AM [facility] Albumin 3.0(L) 3.5 - 5.0 g/dL 04/22/2024 10:[facility] Bilirubin, Total 0.4 0.2 - 1.2 mg/dL 04/22/2024 10:11 AM T [facility] Alkaline Phosphatase 106 40 - 129 U/L 04/22/2024 10:[facility] AST 34 0 - 40 U/L 04/22/2024 10:11 AM [facility] ALT 30 <=41 U/L 04/22/2024 10:11 AM T [facility] BUN 50(H) 8 - 23 mg/dL 04/22/2024 10:11 AM [facility] eGFR 48(L) >=60 mL/min/1. 73m2 04/22/2024 10:11 AM T [facility] Comment:The estimated [...] - 4.2 g/dL 04/22/2024 10:11 AM EDT [facility] A/G Ratio 0.9(L) 1.5 - 3.0 04/22/2024 10:11 AM EDT [facility] Blood Structure of peripheral vein / Unknown 04/22/2024 9:32 AM EDT 04/22/2024 9:33 AM EDT Salo Whyte MD LAB BLOOD ORDERABLES Final Result Performing Organization Address City/State/[facility] Co de Phone Number [facility] [address] [place] [address] [address] [place] [address], documented in this encounter Visit Diagnoses Diagnosis Acute and chronic respiratory failure with hypoxia (HCC) No diagnosis documented in this encounter Additional Health Concerns Infection Onset Date Last Indicated Resolved Time Multidrug resistant organisms MRSA 03/25/20242023 documented as of this encounter Care Teams Cashier Self Service Gasoline Relationship Specialty Start Date End Date Uday Sheehan [address] [place] [address] [place] [address] PCP - General Internal Medicine 03/27/24 documented as of this encounter
--- OUTSIDE RECORDS SUMMARY | 2024-11-07 12:17 | XMS_ITS | Encounter Summary ---
Author Organization [facility] Address [address] [place] [address] Care Team Providers Care Metalworking Instructor Name Role Phone Uday Sheehan MD Primary Care Provider [phone] Encounter Details Date Type Department Care Team (Late st Contact Info) Description 06/21/2024 Lab Requisition [facility] - Main Lab [address] [place] [address] Pearl Garcia MD [address] [place] [address] Unspecified atrial fibrillation (CMS/HCC V24, CMS/HCC V28); [...] mmol/L LAB CHEMISTRY METHOD 06/24/2024 12:29 PM [facility] Potassium 3.8 3.5 - 5.5 mmol/L LAB CHEMISTRY METHOD 06/24/2024 12:29 PM [facility] Chloride 114(H) 96 - 110 mmol/L LAB CHEMISTRY METHOD 06/24/2024 12:29 PM [facility] CO2 24 21 - 32 mmol/L LAB CHEMISTRY METHOD 06/24/2024 12:29 PM [facility] Anion Gap 8 3 - 11 LAB CHEMISTRY METHOD 06/24/2024 12:29 PM [facility] Glucose 99 70 - 100 mg/dL LAB CHEMISTRY METHOD 06/24/2024 12:29 PM [facility] BUN 59(H) 5 - 25 mg/dL LAB CHEMISTRY METHOD 06/24/2024 12:29 PM [facility] Creatinine 2.52(H) 0.70 - 1.30 mg/dL LAB CHEMISTRY METHOD 06/24/2024 12:29 PM [facility] eGFR 24(L) >=60 mL/min/1. 73m2 LAB CHEMISTRY METHOD 06/24/2024 12:29 PM [facility] Comment:Calculation based on the??Chronic Kidney Disease Epidemiology Collaboration (CKD-EPI) equation refit??without adjustment for race. BUN/Creatinine Ratio 23.4 LAB CHEMISTRY METHOD 06/24/2024 12:29 PM [facility] Calcium 9.2 8.5 - 10.5 mg/dL LAB CHEMISTRY METHOD 06/24/2024 12:29 PM [facility] AST (SGOT) 82(H) 10 - 42 unit/L LAB CHEMISTRY METHOD 06/24/2024 12:29 PM [facility] ALT (SGPT) 66(H) 10 - 60 unit/L LAB CHEMISTRY METHOD 06/24/2024 12:29 PM [facility] Alkaline Phosphatase 113 42 - 121 unit/L LAB CHEMISTRY METHOD 06/24/2024 12:29 PM [facility] Total Protein 6.5 6.0 - 8.0 g/dL LAB CHEMISTRY METHOD 06/24/2024 12:29 PM [facility] Albumin 1.7(L) 3.2 - 5.0 g/dL LAB CHEMISTRY METHOD 06/24/2024 12:29 PM [facility] Total Bilirubin 0.5 0.0 - 1.4 mg/dL LAB CHEMISTRY METHOD 06/24/2024 12:29 PM [facility] Blood Venous blood specimen / Unknown Venipuncture / Unknown 06/24/2024 6:49 AM EST 06/24/2024 10:18 AM EST us Pearl Garcia MD LAB BLOOD ORDERABLES Final Resul t [facility] [address] [place] [address], * (ABNORMAL) Complete blood count (06/24/2024 6:49 AM EST) WBC 10.9(H) 4.8 - 10.8 K/mcL LAB HEMETOLOGY METHOD 06/24/2024 10:45 AM [facility] RBC 3.00(L) 4.50 - 5.50 M/[facility] LAB HEMETOLOGY METHOD 06/24/2024 10:45 AM [facility] Hemoglobin 7.6(L) 13.5 - 17.5 g/dL LAB HEMETOLOGY METHOD 06/24/2024 10:45 AM [facility] Hematocrit 26.8(L) 42.0 - 54.0 % LAB HEMETOLOGY METHOD 06/24/2024 10:45 AM [facility] MCV 90.5 79.0 - 98.0 FL LAB HEMETOLOGY METHOD 06/24/2024 10:45 AM EST [facility] MCH 25.7(L) 27.0 - 32.0 pcg LAB HEMETOLOGY METHOD 06/24/2024 10:45 AM [facility] MCHC 28.4(L) 32.0 - 37.0 g/dL LAB HEMETOLOGY METHOD 06/24/2024 10:45 AM [facility] RDW 17.5(H) 11.0 - 15.0 % LAB HEMETOLOGY METHOD 06/24/2024 10:45 AM [facility] Platelets 239 130 - 400 K/mcL LAB HEMETOLOGY METHOD 06/24/2024 10:45 AM [facility] MPV 9.8 7.0 - 11.0 FL LAB HEMETOLOGY METHOD 06/24/2024 10:45 AM [facility] NRBC 0.0 <1.0 % LAB HEMETOLOGY METHOD 06/24/2024 10:45 AM [facility] NRBC Absolute 0.00 <0.10 K/mcL LAB HEMETOLOGY METHOD 06/24/2024 10:45 AM [facility] Blood Venous blood specimen / Unknown Venipuncture / Unknown 06/24/2024 6:49 AM EST 06/24/2024 10:28 AM EST Pearl Garcia MD LAB BLOOD ORDERABLES Final Resul t [facility] [address] [place] [address], documented in this encounter Visit Diagnoses Diagnosis Unspecified atrial fibrillation (CMS/HCC V24, CMS/HCC V28) Essential (primary) hypertension Unspecified essential hypertension documented in this encounter Additional Health Concerns Infection Onset Date Last Indicated Resolved Time ESBL 06/22/2024 06/22/2024 documented as of this encounter Care Teams Metalworking Instructor Relationship Specialty Start Date End Date Uday Sheehan MD [address] [facility] [address] Donna [place] PCP - General Solderer Assembler 12/19/16 documented as of this encounter
--- OUTSIDE RECORDS SUMMARY | 2024-11-07 12:17 | XMS_ITS | Encounter Summary ---
Author Organization [facility] Address [address] [place] [address] Care Team Providers Care Outside Sales Representative Name Role Phone Uday Sheehan MD Primary Care Provider [phone] Encounter Details Date Type Department Care Team (Late st Contact Info) Description 07/11/2024 Lab Requisition [facility] - Main Lab [address] [place] [address] Tabby Bledsoe MD [address] [address] Acute kidney failure, unspecified (CMS/HCC V24) Social History Tobacco Use Types Packs/Day Years [...] LAB CHEMISTRY METHOD 07/11/2024 11:14 AM EST [facility] Potassium 4.1 3.5 - 5.5 mmol/L LAB CHEMISTRY METHOD 07/11/2024 11:14 AM [facility] Chloride 113(H) 96 - 110 mmol/L LAB CHEMISTRY METHOD 07/11/2024 11:14 AM [facility] CO2 31 21 - 32 mmol/L LAB CHEMISTRY METHOD 07/11/2024 11:14 AM [facility] Anion Gap 3 3 - 11 LAB CHEMISTRY METHOD 07/11/2024 11:14 AM [facility] Glucose 100 70 - 100 mg/dL LAB CHEMISTRY METHOD 07/11/2024 11:14 AM [facility] BUN 29(H) 5 - 25 mg/dL LAB CHEMISTRY METHOD 07/11/2024 11:14 AM [facility] Creatinine 1.31(H) 0.70 - 1.30 mg/dL LAB CHEMISTRY METHOD 07/11/2024 11:14 AM [facility] eGFR 54(L) >=60 mL/min/1. 73m2 LAB CHEMISTRY METHOD 07/11/2024 11:14 AM [facility] Comment:Calculation based on the??Chronic Kidney Disease Epidemiology Collaboration (CKD-EPI) equation refit??without adjustment for race. BUN/Creatinine Ratio 22.1 LAB CHEMISTRY METHOD 07/11/2024 11:14 AM [facility] Calcium 10.3 8.5 - 10.5 mg/dL LAB CHEMISTRY METHOD 07/11/2024 11:14 AM [facility] AST (SGOT) 36 10 - 42 unit/L LAB CHEMISTRY METHOD 07/11/2024 11:14 AM [facility] ALT (SGPT) 23 10 - 60 unit/L LAB CHEMISTRY METHOD 07/11/2024 11:14 AM [facility] Alkaline Phosphatase 127(H) 42 - 121 unit/L LAB CHEMISTRY METHOD 07/11/2024 11:14 AM EST [facility] Total Protein 5.8(L) 6.0 - 8.0 g/dL LAB CHEMISTRY METHOD 07/11/2024 11:14 AM [facility] Albumin 1.6(L) 3.2 - 5.0 g/dL LAB CHEMISTRY METHOD 07/11/2024 11:14 AM [facility] Total Bilirubin 0.4 0.0 - 1.4 mg/dL LAB CHEMISTRY METHOD 07/11/2024 11:14 AM [facility] Blood Venous blood specimen / Unknown Venipuncture / Unknown 07/11/2024 5:17 AM EST 07/11/2024 10:02 AM EST us Tabby Bledsoe MD LAB BLOOD ORDERABLES Fin al Result [facility] [address] [place] [address], * (ABNORMAL) Complete blood count (07/11/2024 5:17 AM EST) WBC 6.4 4.8 - 10.8 K/mcL LAB HEMETOLOGY METHOD 07/11/2024 10:30 AM [facility] RBC 2.80(L) 4.50 - 5.50 M/mcL LAB HEMETOLOGY METHOD 07/11/2024 10:30 AM [facility] Hemoglobin 7.3(L) 13.5 - 17.5 g/dL LAB HEMETOLOGY METHOD 07/11/2024 10:30 AM [facility] Hematocrit 24.5(L) 42.0 - 54.0 % LAB HEMETOLOGY METHOD 07/11/2024 10:30 AM [facility] MCV 87.8 79.0 - 98.0 FL LAB HEMETOLOGY METHOD 07/11/2024 10:30 AM [facility] MCH 26.2(L) 27.0 - 32.0 pcg LAB HEMETOLOGY METHOD 07/11/2024 10:30 AM EST [facility] MCHC 29.8(L) 32.0 - 37.0 g/dL LAB HEMETOLOGY METHOD 07/11/2024 10:30 AM [facility] RDW 19.2(H) 11.0 - 15.0 % LAB HEMETOLOGY METHOD 07/11/2024 10:30 AM EST [facility] Platelets 210 130 - 400 K/mcL LAB HEMETOLOGY METHOD 07/11/2024 10:30 AM [facility] MPV 10.2 7.0 - 11.0 FL LAB HEMETOLOGY METHOD 07/11/2024 10:30 AM [facility] NRBC 0.0 <1.0 % LAB HEMETOLOGY METHOD 07/11/2024 10:30 AM [facility] NRBC Absolute 0.00 <0.10 K/mcL LAB HEMETOLOGY METHOD 07/11/2024 10:30 AM [facility] Blood Venous blood specimen / Unknown Venipuncture / Unknown 07/11/2024 5:17 AM EST 07/11/2024 10:02 AM EST us Tabby lBedsoe MD LAB BLOOD ORDERABLES Fin al Result [facility] [address] [place] [address], documented in this encounter Visit Diagnoses Diagnosis Acute kidney failure, unspecified (CMS/HCC V24) Acute kidney failure, unspecified documented in this encounter Additional Health Concerns Infection Onset Date Last Indicated Resolved Time ESBL 06/22/2024 06/22/2024 documented as of this encounter Care Teams Outside Sales Representative Relationship Specialty Start Date End Date Uday Sheehan MD [address] [facility] [address] Donna [place] PCP - General Director Of Investigations 12/19/16 documented as of this encounter
--- OUTSIDE RECORDS SUMMARY | 2024-11-07 12:17 | XMS_ITS | Encounter Summary ---
Author Organization [facility] Address [address] [place] [address] Care Team Providers Care Shredder Tender Peat Name Role Phone Uday Sheehan Primary Care Provider [phone] Encounter Details Date Type Department Care Team (Late st Contact Info) Description 05/28/2024 Lab Requisition [facility] Lab Department [address] [place] [address] Lidia Barry, CB [address] [place] [address] Acute and chronic respiratory failure with hypoxia; [...] encounter Procedures * Due to [place] law, this organization might not be sharing negative HIV tests. Procedure Name Priority Date/Time Associated Diagnosis Comments TROPONIN T HIGH SENSITIVITY Routine 05/28/2024 8:45 PM EST Acute and chronic respiratory failure with hypoxia (HCC) No diagnosis documented in this encounter Results * Due to [place] law, this organization might not be sharing negative HIV tests. * (ABNORMAL) Troponin T, High Sensitivity (05/28/2024 8:45 PM EST) Troponin T High Sensitivity 35(H) 6 - 22 ng/L 05/28/2024 9:42 PM EST [facility] Comment: [id number]-[id number] level of 52 ng/L or higher at [...] be evaluated in line with the 4th [place] Definition of AMI. Troponin baseline and serial [...] 05/28/2024 9:26 PM EST us Lidia Barry LAB BLOOD ORDERABLES Final R esult 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
--- OUTSIDE RECORDS SUMMARY | 2024-11-07 12:17 | XMS_ITS | Encounter Summary ---
Author Organization [facility] Address [address] [place] [address] Care Team Providers Care Senior Loss Control Specialist Name Role Phone Uday Sheehan MD Primary Care Provider [phone] Encounter Details Date Type Department Care Team (Late st Contact Info) Description 06/26/2024 Lab Requisition [facility] - Main Lab [address] [place] [id number] Natanael Rodney PA [address] [place] [phone] Anemia, unspecified Social History Tobacco Use Types [...] AM EST) WBC 10.2 4.8 - 10.8 K/[facility] LAB HEMETOLOGY METHOD 06/26/2024 1:31 PM EST [facility] RBC 2.70(L) 4.50 - 5.50 M/[facility] LAB HEMETOLOGY METHOD 06/26/2024 1:31 PM EST [facility] Hemoglobin 7.1(L) 13.5 - 17.5 g/dL LAB HEMETOLOGY METHOD 06/26/2024 1:31 PM [facility] Hematocrit 23.9(L) 42.0 - 54.0 % LAB HEMETOLOGY METHOD 06/26/2024 1:31 PM [facility] MCV 88.2 79.0 - 98.0 FL LAB HEMETOLOGY METHOD 06/26/2024 1:31 PM [facility] MCH 26.2(L) 27.0 - 32.0 pcg LAB HEMETOLOGY METHOD 06/26/2024 1:31 PM [facility] MCHC 29.7(L) 32.0 - 37.0 g/dL LAB HEMETOLOGY METHOD 06/26/2024 1:31 PM [facility] RDW 18.0(H) 11.0 - 15.0 % LAB HEMETOLOGY METHOD 06/26/2024 1:31 PM [facility] Platelets 196 130 - 400 K/mcL LAB HEMETOLOGY METHOD 06/26/2024 1:31 PM [facility] MPV 10.2 7.0 - 11.0 FL LAB HEMETOLOGY METHOD 06/26/2024 1:31 PM [facility] NRBC 0.0 <1.0 % LAB HEMETOLOGY METHOD 06/26/2024 1:31 PM [facility] NRBC Absolute 0.00 <0.10 K/mcL LAB HEMETOLOGY METHOD 06/26/2024 1:31 PM [facility] Blood Venous blood specimen / Unknown Venipuncture / Unknown 06/26/2024 5:40 AM EST 06/26/2024 12:19 PM EST us Natanael [facility] LAB BLOOD ORDERABLES Final Re sult [facility] [address] [place] [address], documented in this encounter Visit Diagnoses Diagnosis Anemia, unspecified documented in this encounter Additional Health Concerns Infection Onset Date Last Indicated Resolved Time ESBL 06/22/2024 06/22/2024 documented as of this encounter Care Teams Senior Loss Control Specialist Relationship Specialty Start Date End Date Uday Sheehan MD [address] [place] [address] Dr Donna [place] PCP - General Senior Clinical Project Manager 12/19/16 documented as of this encounter
--- OUTSIDE RECORDS SUMMARY | 2024-11-07 12:17 | XMS_ITS | Encounter Summary ---
Author Organization [facility] Address [address] [place] [address] Care Team Providers Care Train Brakeman Name Role Phone Uday Sheehan MD Primary Care Provider [phone] Encounter Details Date Type Department Care Team (Late st Contact Info) Description 07/12/2024 Lab Requisition [facility] - Main Lab [address] [facility] [place] [address] Tabby Bledsoe MD [address] [address] Bacteremia Social History Tobacco Use Types Packs/Day [...] documented as of this encounter Care Teams Train Brakeman Relationship Specialty Start Date End Date Uday Sheehan MD [address] [place] [address] PCP - General Supervisor Water Treatment [employer] 12/19/16 documented as of this encounter
--- OUTSIDE RECORDS SUMMARY | 2024-11-07 12:17 | XMS_ITS | Encounter Summary ---
Author Organization [facility] Address [address] [place] [address] Care Team Providers Care Lead Sql Developer Name Role Phone Uday Sheehan Primary Care Provider [phone] Encounter Details Date Type Department Care Team (Late st Contact Info) Description 05/23/2024 Lab Requisition [facility] [address] [place] [address] Lidia Barry, CB [address] [place] [address] Acute and chronic respiratory failure with hypoxia; [...] - 19 mm/Hr 05/23/2024 10:52 AM EST [facility] Blood Structure of peripheral vein / Unknown Venipuncture / Unknown 05/23/2024 9:28 AM EST 05/23/2024 10:40 AM EST [facility] LAB BLOOD ORDERABLES Final R esult Performing Organization Address City/State/[facility] Co de Phone Number [facility] [address] [place] [address] [address] [place] [address], [place] [phone] * (ABNORMAL) CBC Auto Differential (05/23/2024 9:28 AM EST) WBC 7.1 4.8 - 10.8 10*3/uL 05/23/2024 10:51 AM EST [facility] RBC 3.05(L) 4.70 - 6.10 10*6/uL 05/23/2024 10:51 AM EST [facility] Hemoglobin 8.5(L) 13.7 - 16.5 g/dL 05/23/2024 10:51 AM EST [facility] Hematocrit 26.6(L) 40.5 - 48.5 % 05/23/2024 10:51 AM EST [facility] MCV 87.2 80.0 - 94.0 fL 05/23/2024 10:51 AM EST [facility] MCH 27.9 26.0 - 34.0 pg 05/23/2024 10:51 AM EST [facility] MCHC 32.0 31.0 - 36.0 g/dL 05/23/2024 10:51 AM [facility] RDW 16.9(H) 12.0 - 15.0 % 05/23/2024 10:51 AM [facility] RDW Standard Deviation 54.4(H) 35.1 - 43.9 fL 05/23/2024 10:51 AM [facility] Platelets 136(L) 140 - 440 10*3/uL 05/23/2024 10:51 AM [facility] MPV 10.1 9.4 - 12.4 fL 05/23/2024 10:51 AM [facility] Neutrophil % 60.6 50.0 - 75.0 % 05/23/2024 10:51 AM [facility] Immature Grans % 0.3 0.0 - 0.9 % 05/23/2024 10:51 AM [facility] Lymphocyte % 21.6 20.0 - 44.0 % 05/23/2024 10:51 AM [facility] Monocyte % 12.6 0.0 - 14.0 % 05/23/2024 10:51 AM [facility] Eosinophil % 4.3 0.0 - 5.0 % 05/23/2024 10:51 AM EST [facility] Basophil % 0.6 0.0 - 2.0 % 05/23/2024 10:51 AM [facility] Neutrophil # 4.33 1.80 - 7.70 10*3/uL 05/23/2024 10:51 AM [facility] Immature Grans # <0.03 0.00 - 0.03 10*3/uL 05/23/2024 10:51 AM [facility] Lymphocyte # 1.50 1.00 - 4.75 10*3/uL 05/23/2024 10:51 AM EST [facility] Monocyte # 0.90 0.00 - 6.00 10*3/uL 05/23/2024 10:51 AM EST [facility] Eosinophil # 0.30 0.00 - 0.80 10*3/uL 05/23/2024 10:51 AM EST [facility] Basophil # <0.03 0.00 - 0.20 10*3/uL 05/23/2024 10:51 AM EST [facility] nRBC % 0.0 0 - 0 /100 WBCs 05/23/2024 10:51 AM EST [facility] nRBC # <0.01 0.00 - 0.13 10*3/uL 05/23/2024 10:51 AM EST [facility] Blood Structure of peripheral vein / Unknown Venipuncture / Unknown 05/23/2024 9:28 AM EST 05/23/2024 10:40 AM EST [facility] LAB BLOOD ORDERABLES Final R esult Performing Organization Address City/[facility]/ZIP Co de Phone Number [facility] [address] [address], [place] [phone] * (ABNORMAL) C-Reactive Protein (05/23/2024 9:28 AM EST) [facility] C Reactive Protein 12.4(H) <=10.0 mg/L 05/23/2024 11:08 AM EST [facility] Blood Structure of peripheral vein / Unknown Venipuncture / Unknown 05/23/2024 9:28 AM EST 05/23/2024 10:40 AM EST [facility] T [facility] LAB BLOOD ORDERABLES Final R [facility] Performing Organization Address City/[facility] Co de Phone Number [facility] [address] [address], [place] [phone] * (ABNORMAL) Comprehensive Metabolic Panel (05/23/2024 9:28 AM EST) Pathologist [facility] NA 142 136 - 145 mmol/L 05/23/2024 11:08 AM [facility] K 3.9 3.5 - 5.1 mmol/L 05/23/2024 11:08 AM [facility] Cl 104 98 - 109 mmol/L 05/23/2024 11:08 AM [facility] CO2 27 22 - 32 mmol/L 05/23/2024 11:08 AM [facility] Anion Gap 15 >=0 05/23/2024 11:08 AM [facility] Glucose 102(H) 60 - 99 mg/dL 05/23/2024 11:08 AM [facility] Creatinine 1.65(H) 0.50 - 1.12 mg/dL 05/23/2024 11:08 AM [facility] Calcium 9.1 8.4 - 10.4 mg/dL 05/23/2024 11:08 AM [facility] Total Protein 6.2(L) 6.6 - 8.7 g/dL 05/23/2024 11:08 AM [facility] Albumin 3.1(L) 3.5 - 5.0 g/dL 05/23/2024 11:08 AM [facility] Bilirubin, Total 0.2 0.2 - 1.2 mg/dL 05/23/2024 11:08 AM [facility] Alkaline Phosphatase 117 40 - 129 U/L 05/23/2024 11:08 AM [facility] AST 23 0 - 40 U/L 05/23/2024 11:08 AM [facility] ALT 14 <=41 U/L 05/23/2024 11:08 AM [facility] BUN 39(H) 8 - 23 mg/dL 05/23/2024 11:08 AM [facility] eGFR 41(L) >=60 mL/min/1. 73m2 05/23/2024 11:08 AM [facility] Comment:The estimated glomer ular filtration [...] - 4.2 g/dL 05/23/2024 11:08 AM EST [facility] A/G Ratio 1.0(L) 1.5 - 3.0 05/23/2024 11:08 AM EST [facility] Blood Structure of peripheral vein / Unknown Venipuncture / Unknown 05/23/2024 9:28 AM EST 05/23/2024 10:40 AM EST [facility] BLOOD ORDERABLES Final R esult Performing Organization Address City/State/[facility] Co de Phone Number [facility] [address] [facility] [address] [place] [address], documented in this encounter Visit Diagnoses Diagnosis Acute and chronic respiratory failure with hypoxia (HCC) No diagnosis documented in this encounter Additional Health Concerns Infection Onset Date Last Indicated Resolved Time 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
--- OUTSIDE RECORDS SUMMARY | 2024-11-07 12:17 | XMS_ITS | Encounter Summary ---
Author Organization [facility] Address [address] [place] [address] Care Team Providers Care Guard Driver Name Role Phone Uday Sheehan MD Primary Care Provider [phone] Encounter Details Date Type Department Care Team (Late st Contact Info) Description 10/06/2024 Lab Requisition [facility] - Main Lab [address] [place] [address] Tabby Bledsoe MD [address] [address] Bacteremia Social History Tobacco Use Types Packs/Day [...] Associated Diagnosis Comments COMPLETE BLOOD COUNT Routine 10/07/2024 8:53 AM EDT Bacteremia COMPREHENSIVE METABOLIC PANEL Routine 10/07/2024 8:53 AM EDT Bacteremia documented in this encounter Results * (ABNORMAL) Comprehensive metabolic panel (10/07/2024 8:53 AM EDT) Sodium 136 133 - 145 mmol/L LAB CHEMISTRY METHOD 10/07/2024 12:51 PM EDT [facility] Potassium 4.2 3.5 - 5.5 mmol/L LAB CHEMISTRY METHOD 10/07/2024 12:51 PM [facility] Chloride 102 96 - 110 mmol/L LAB CHEMISTRY METHOD 10/07/2024 12:51 PM [facility] CO2 27 21 - 32 mmol/L LAB CHEMISTRY METHOD 10/07/2024 12:51 PM [facility] Anion Gap 7 3 - 11 LAB CHEMISTRY METHOD 10/07/2024 12:51 PM [facility] Glucose 97 70 - 100 mg/dL LAB CHEMISTRY METHOD 10/07/2024 12:51 PM [facility] BUN 31(H) 5 - 25 mg/dL LAB CHEMISTRY METHOD 10/07/2024 12:51 PM [facility] Creatinine 1.03 0.70 - 1.30 mg/dL LAB CHEMISTRY METHOD 10/07/2024 12:51 PM [facility] eGFR 72 >=60 mL/min/1. 73m2 LAB CHEMISTRY METHOD 10/07/2024 12:51 PM [facility] Comment:Calculation based on the??Chronic Kidney Disease Epidemiology Collaboration (CKD-EPI) equation refit??without adjustment for race. BUN/Creatinine Ratio 30.1 LAB CHEMISTRY METHOD 10/07/2024 12:51 PM [facility] Calcium 8.0(L) 8.5 - 10.5 mg/dL LAB CHEMISTRY METHOD 10/07/2024 12:51 PM [facility] AST (SGOT) 31 10 - 42 unit/L LAB CHEMISTRY METHOD 10/07/2024 12:51 PM [facility] ALT (SGPT) 38 10 - 60 unit/L LAB CHEMISTRY METHOD 10/07/2024 12:51 PM [facility] Alkaline Phosphatase 98 42 - 121 unit/L LAB CHEMISTRY METHOD 10/07/2024 12:51 PM [facility] Total Protein 5.4(L) 6.0 - 8.0 g/dL LAB CHEMISTRY METHOD 10/07/2024 12:51 PM EDT [facility] Albumin 1.4(L) 3.2 - 5.0 g/dL LAB CHEMISTRY METHOD 10/07/2024 12:51 PM EDT [facility] Total Bilirubin 0.3 0.0 - 1.4 mg/dL LAB CHEMISTRY METHOD 10/07/2024 12:51 PM EDT [facility] Blood Venous blood specimen / Unknown Venipuncture / Unknown 10/07/2024 8:53 AM EDT 10/07/2024 10:28 AM EDT us Tabby Bledsoe MD LAB BLOOD ORDERABLES Fin al Result [facility] [address] [place] [address], * (ABNORMAL) Complete blood count (10/07/2024 8:53 AM EDT) WBC 7.3 4.8 - 10.8 K/mcL LAB HEMETOLOGY METHOD 10/07/2024 11:23 AM [facility] RBC 2.80(L) 4.50 - 5.50 M/mcL LAB HEMETOLOGY METHOD 10/07/2024 11:23 AM [facility] Hemoglobin 7.9(L) 13.5 - 17.5 g/dL LAB HEMETOLOGY METHOD 10/07/2024 11:23 AM T [facility] Hematocrit 26.0(L) 42.0 - 54.0 % LAB HEMETOLOGY METHOD 10/07/2024 11:23 AM EDT [facility] MCV 93.2 79.0 - 98.0 FL LAB HEMETOLOGY METHOD 10/07/2024 11:23 AM [facility] MCH 28.3 27.0 - 32.0 pcg LAB HEMETOLOGY METHOD 10/07/2024 11:23 AM EDT [facility] MCHC 30.4(L) 32.0 - 37.0 g/dL LAB HEMETOLOGY METHOD 10/07/2024 11:23 AM EDT [facility] RDW 17.0(H) 11.0 - 15.0 % LAB HEMETOLOGY METHOD 10/07/2024 11:23 AM EDT [facility] Platelets 224 130 - 400 K/mcL LAB HEMETOLOGY METHOD 10/07/2024 11:23 AM EDT [facility] MPV 8.7 7.0 - 11.0 FL LAB HEMETOLOGY METHOD 10/07/2024 11:23 AM EDT [facility] NRBC 0.0 <1.0 % LAB HEMETOLOGY METHOD 10/07/2024 11:23 AM EDT [facility] NRBC Absolute 0.00 <0.10 K/mcL LAB HEMETOLOGY METHOD 10/07/2024 11:23 AM EDT [facility] Blood Venous blood specimen / Unknown Venipuncture / Unknown 10/07/2024 8:53 AM EDT 10/07/2024 10:28 AM EDT us Tabby Bledsoe MD LAB BLOOD ORDERABLES Fin al Result [facility] [address] [place] [address], documented in this encounter Visit Diagnoses Diagnosis Bacteremia documented in this encounter Additional Health Concerns Infection Onset Date Last Indicated Resolved Time ESBL 06/22/2024 06/22/2024 documented as of this encounter Care Teams Guard Driver Relationship Specialty Start Date End Date Uday Sheehan MD [address] [place] [address] Dr Thompson [place] PCP - General Corsetier 12/19/16 documented as of this encounter
--- OUTSIDE RECORDS SUMMARY | 2024-11-07 12:17 | XMS_ITS | Encounter Summary ---
Author Organization [facility] Address [address] [place] [address] Care Team Providers Care Janitorial Manager Name Role Phone Uday Sheehan MD Primary Care Provider [phone] Encounter Details Date Type Department Care Team (Late st Contact Info) Description 06/13/2024 Lab Requisition [facility] - Main Lab [address] [facility] [place] [address] Natanael Rodney MD [address] [place] [address] [place] [address] Anemia, unspecified Social [...] ORDERABLES Final Resu lt Performing Organization Address [facility]/ZIP Co de Phone Number [facility] [address] [place] [address], [place] [phone] * Free thyroxine with reflex to free triiodothyronine (06/13/2024 7:00 AM EST) Free T4 0.97 0.70 - 1.80 ng/dL LAB CHEMISTRY METHOD 06/13/2024 10:56 AM EST [facility] Blood Venous blood specimen / Unknown Venipuncture / Unknown 06/13/2024 7:00 AM EST 06/13/2024 8:28 AM EST us Natanael Rodnye MD LAB BLOOD ORDERABLES Final Resu lt [facility] [address] [place] [address], [place] [phone] * (ABNORMAL) Thyroid stimulating hormone with reflex to free t4 and free t3 (06/13/2024 7:00 AM EST) TSH 5.31(H) 0.40 - 4.00 mcIU/mL LAB CHEMISTRY METHOD 06/13/2024 10:28 AM EST [facility] Blood Venous blood specimen / Unknown Venipuncture / Unknown 06/13/2024 7:00 AM EST 06/13/2024 8:28 AM EST us Natanael Rodney MD LAB BLOOD ORDERABLES Final Resu lt [facility] [address] [place] [address], [place] [phone] * (ABNORMAL) Comprehensive metabolic panel (06/13/2024 7:00 AM EST) Sodium 146(H) 133 - 145 mmol/L LAB CHEMISTRY METHOD 06/13/2024 10:23 AM [facility] Potassium 4.2 3.5 - 5.5 mmol/L LAB CHEMISTRY METHOD 06/13/2024 10:23 AM [facility] Chloride 115(H) 96 - 110 mmol/L LAB CHEMISTRY METHOD 06/13/2024 10:23 AM [facility] CO2 24 21 - 32 mmol/L LAB CHEMISTRY METHOD 06/13/2024 10:23 AM [facility] Anion Gap 7 3 - 11 LAB CHEMISTRY METHOD 06/13/2024 10:23 AM [facility] Glucose 86 70 - 100 mg/dL LAB CHEMISTRY METHOD 06/13/2024 10:23 AM [facility] BUN 43(H) 5 - 25 mg/dL LAB CHEMISTRY METHOD 06/13/2024 10:23 AM [facility] Creatinine 2.70(H) 0.70 - 1.30 mg/dL LAB CHEMISTRY METHOD 06/13/2024 10:23 AM [facility] eGFR 23(L) >=60 mL/min/1. 73m2 LAB CHEMISTRY METHOD 06/13/2024 10:23 AM [facility] Comment:Calculation based on the??Chronic Kidney Disease Epidemiology Collaboration (CKD-EPI) equation refit??without adjustment for race. BUN/Creatinine Ratio 15.9 LAB CHEMISTRY METHOD 06/13/2024 10:23 AM [facility] Calcium 7.8(L) 8.5 - 10.5 mg/dL LAB CHEMISTRY METHOD 06/13/2024 10:23 AM [facility] AST (SGOT) 137(H) 10 - 42 unit/L LAB CHEMISTRY METHOD 06/13/2024 10:23 AM [facility] ALT (SGPT) 111(H) 10 - 60 unit/L LAB CHEMISTRY METHOD 06/13/2024 10:23 AM [facility] Alkaline Phosphatase 99 42 - 121 unit/L LAB CHEMISTRY METHOD 06/13/2024 10:23 AM [facility] Total Protein 5.5(L) 6.0 - 8.0 g/dL LAB CHEMISTRY METHOD 06/13/2024 10:23 AM [facility] Albumin 1.7(L) 3.2 - 5.0 g/dL LAB CHEMISTRY METHOD 06/13/2024 10:23 AM [facility] Total Bilirubin 0.5 0.0 - 1.4 mg/dL LAB CHEMISTRY METHOD 06/13/2024 10:23 AM [facility] Blood Venous blood specimen / Unknown Venipuncture / Unknown 06/13/2024 7:00 AM EST 06/13/2024 8:28 AM EST us Natanael Rodney MD LAB BLOOD ORDERABLES Final Resu lt [facility] [address] [place] [address], * (ABNORMAL) Complete blood count (06/13/2024 7:00 AM EST) WBC 4.9 4.8 - 10.8 K/mcL LAB HEMETOLOGY METHOD 06/13/2024 10:08 AM [facility] RBC 2.80(L) 4.50 - 5.50 M/mcL LAB HEMETOLOGY METHOD 06/13/2024 10:08 AM [facility] Hemoglobin 7.6(L) 13.5 - 17.5 g/dL LAB HEMETOLOGY METHOD 06/13/2024 10:08 AM [facility] Hematocrit 25.2(L) 42.0 - 54.0 % LAB HEMETOLOGY METHOD 06/13/2024 10:08 AM [facility] MCV 88.7 79.0 - 98.0 FL LAB HEMETOLOGY METHOD 06/13/2024 10:08 AM [facility] MCH 26.8(L) 27.0 - 32.0 pcg LAB HEMETOLOGY METHOD 06/13/2024 10:08 AM [facility] MCHC 30.2(L) 32.0 - 37.0 g/dL LAB HEMETOLOGY METHOD 06/13/2024 10:08 AM [facility] RDW 16.8(H) 11.0 - 15.0 % LAB HEMETOLOGY METHOD 06/13/2024 10:08 AM [facility] Platelets 188 130 - 400 K/mcL LAB HEMETOLOGY METHOD 06/13/2024 10:08 AM [facility] MPV 10.3 7.0 - 11.0 FL LAB HEMETOLOGY METHOD 06/13/2024 10:08 AM [facility] NRBC 0.0 <1.0 % LAB HEMETOLOGY METHOD 06/13/2024 10:08 AM [facility] NRBC Absolute 0.00 <0.10 K/mcL LAB HEMETOLOGY METHOD 06/13/2024 10:08 AM [facility] Blood Venous blood specimen / Unknown Venipuncture / Unknown 06/13/2024 7:00 AM EST 06/13/2024 8:28 AM EST us Natanael Rodney MD LAB BLOOD ORDERABLES Final Resu lt [facility] [address] [place] [address], documented in this encounter Visit Diagnoses Diagnosis Anemia, unspecified documented in this encounter Additional Health Concerns Infection Onset Date Last Indicated Resolved Time ESBL 06/22/2024 06/22/2024 documented as of this encounter Care Teams Janitorial Manager Relationship Specialty Start Date End Date Uday Sheehan MD [address] [place] [address] Dr Donna [place] PCP - General [employer] Superintendent 12/19/16 documented as of this encounter
--- OUTSIDE RECORDS SUMMARY | 2024-11-07 12:17 | XMS_ITS | Encounter Summary ---
Author Organization [facility] Address [address] [place] [address] Care Team Providers Care Phone Manager Name Role Phone Uday Sheehan Primary Care Provider [phone] Encounter Details Date Type Department Care Team (Late st Contact Info) Description 05/20/2024 Lab Requisition [facility] [address] [place] [address] Salo Whyte MD [address] [place] [address] Acute and chronic respiratory failure with hypoxia; [...] - 10.8 10*3/uL 05/20/2024 10:48 AM EST [facility] RBC 3.05(L) 4.70 - 6.10 10*6/uL 05/20/2024 10:48 AM EST [facility] Hemoglobin 8.3(L) 13.7 - 16.5 g/dL 05/20/2024 10:48 AM EST [facility] Hematocrit 26.4(L) 40.5 - 48.5 % 05/20/2024 10:48 AM EST [facility] MCV 86.6 80.0 - 94.0 fL 05/20/2024 10:48 AM EST [facility] MCH 27.2 26.0 - 34.0 pg 05/20/2024 10:48 AM EST [facility] MCHC 31.4 31.0 - 36.0 g/dL 05/20/2024 10:48 AM EST [facility] RDW 16.9(H) 12.0 - 15.0 % 05/20/2024 10:48 AM EST [facility] RDW Standard Deviation 53.1(H) 35.1 - 43.9 fL 05/20/2024 10:48 AM EST [facility] Platelets 141 140 - 440 10*3/uL 05/20/2024 10:48 AM EST [facility] MPV 10.0 9.4 - 12.4 fL 05/20/2024 10:48 AM EST [facility] Neutrophil % 50.4 50.0 - 75.0 % 05/20/2024 10:48 AM EST [facility] Immature Grans % 0.2 0.0 - 0.9 % 05/20/2024 10:48 AM EST [facility] Lymphocyte % 29.8 20.0 - 44.0 % 05/20/2024 10:48 AM EST [facility] Monocyte % 13.1 0.0 - 14.0 % 05/20/2024 10:48 AM EST [facility] Eosinophil % 5.9(H) 0.0 - 5.0 % 05/20/2024 10:48 AM EST [facility] Basophil % 0.6 0.0 - 2.0 % 05/20/2024 10:48 AM EST [facility] Neutrophil # 2.74 1.80 - 7.70 10*3/uL 05/20/2024 10:48 AM EST [facility] Immature Grans # <0.03 0.00 - 0.03 10*3/uL 05/20/2024 10:48 AM EST [facility] Lymphocyte # 1.60 1.00 - 4.75 10*3/uL 05/20/2024 10:48 AM EST [facility] Monocyte # 0.70 0.00 - 6.00 10*3/uL 05/20/2024 10:48 AM EST [facility] Eosinophil # 0.30 0.00 - 0.80 10*3/uL 05/20/2024 10:48 AM EST [facility] Basophil # <0.03 0.00 - 0.20 10*3/uL 05/20/2024 10:48 AM EST [facility] nRBC % 0.0 0 - 0 /100 WBCs 05/20/2024 10:48 AM EST [facility] nRBC # <0.01 0.00 - 0.13 10*3/uL 05/20/2024 10:48 AM EST [facility] Blood Structure of peripheral vein / Unknown Venipuncture / Unknown 05/20/2024 10:25 AM EST 05/20/2024 10:25 AM EST us Salo Whyte MD LAB BLOOD ORDERABLES Final Result Performing Organization Address City/State/[facility] Co de Phone Number [facility] [address] [place] [address] [address] [place] [address], [place] [phone] * (ABNORMAL) Comprehensive Metabolic Panel (05/20/2024 10:25 AM EST) NA 141 136 - 145 mmol/L 05/20/2024 11:11 AM EST [facility] K 3.7 3.5 - 5.1 mmol/L 05/20/2024 11:11 AM EST [facility] Cl 102 98 - 109 mmol/L 05/20/2024 11:11 AM EST [facility] CO2 27 22 - 32 mmol/L 05/20/2024 11:11 AM EST [facility] Anion Gap 16 >=0 05/20/2024 11:11 AM EST [facility] Glucose 91 60 - 99 mg/dL 05/20/2024 11:11 AM EST [facility] Creatinine 1.68(H) 0.50 - 1.12 mg/dL 05/20/2024 11:11 AM EST [facility] Calcium 9.4 8.4 - 10.4 mg/dL 05/20/2024 11:11 AM EST [facility] Total Protein 6.4(L) 6.6 - 8.7 g/dL 05/20/2024 11:11 AM EST [facility] Albumin 3.1(L) 3.5 - 5.0 g/dL 05/20/2024 11:11 AM EST [facility] Bilirubin, Total 0.2 0.2 - 1.2 mg/dL 05/20/2024 11:11 AM EST [facility] Alkaline Phosphatase 102 40 - 129 U/L 05/20/2024 11:11 AM EST [facility] AST 23 0 - 40 U/L 05/20/2024 11:11 AM EST [facility] ALT 17 <=41 U/L 05/20/2024 11:11 AM EST [facility] BUN 35(H) 8 - 23 mg/dL 05/20/2024 11:11 AM EST [facility] eGFR 40(L) >=60 mL/min/1. 73m2 05/20/2024 11:11 AM EST [facility] Comment:The estimated glomer ular filtration [...] - 4.2 g/dL 05/20/2024 11:11 AM EST [facility] A/G Ratio 0.9(L) 1.5 - 3.0 05/20/2024 11:11 AM EST [facility] Blood Structure of peripheral vein / Unknown Venipuncture / Unknown 05/20/2024 10:25 AM EST 05/20/2024 10:25 AM EST Salo Whyte MD LAB BLOOD ORDERABLES Final Result Performing Organization Address City/State/[facility] Co de Phone Number [facility] [address] [place] [address], documented in this encounter Visit Diagnoses Diagnosis Acute and chronic respiratory failure with hypoxia (HCC) No diagnosis documented in this encounter Additional Health Concerns Infection Onset Date Last Indicated Resolved Time 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
--- OUTSIDE RECORDS SUMMARY | 2024-11-07 12:17 | XMS_ITS | Encounter Summary ---
Author Organization [facility] Address [address] [place] [address] Care Team Providers Care Nurse Esthetician Name Role Phone Uday Sheehan Primary Care Provider [phone] Encounter Details Date Type Department Care Team (Late st Contact Info) Description 04/15/2024 Lab Requisition [facility] Lab [address] [place] [address] Salo Whyte MD [address] [place] [address] Acute respiratory failure, unspecified whether with hypoxia or hypercapnia; No diagnosis Social History Tobacco Use Types [...] - 10.8 10*3/uL 04/15/2024 12:45 PM EDT [facility] RBC 2.94(L) 4.70 - 6.10 10*6/uL 04/15/2024 12:45 PM EDT [facility] Hemoglobin 8.1(L) 13.7 - 16.5 g/dL 04/15/2024 12:45 PM EDT [facility] Hematocrit 26.2(L) 40.5 - 48.5 % 04/15/2024 12:45 PM EDT [facility] MCV 89.1 80.0 - 94.0 fL 04/15/2024 12:45 PM EDT [facility] MCH 27.6 26.0 - 34.0 pg 04/15/2024 12:45 PM EDT [facility] MCHC 30.9(L) 31.0 - 36.0 g/dL 04/15/2024 12:45 PM EDT [facility] RDW 17.3(H) 12.0 - 15.0 % 04/15/2024 12:45 PM EDT [facility] RDW Standard Deviation 55.5(H) 35.1 - 43.9 fL 04/15/2024 12:45 PM EDT [facility] Platelets 216 140 - 440 10*3/uL 04/15/2024 12:45 PM EDT [facility] MPV 10.4 9.4 - 12.4 fL 04/15/2024 12:45 PM EDT [facility] Neutrophil % 60.4 50.0 - 75.0 % 04/15/2024 12:45 PM EDT [facility] Immature Grans % 0.3 0.0 - 0.9 % 04/15/2024 12:45 PM EDT [facility] Lymphocyte % 21.7 20.0 - 44.0 % 04/15/2024 12:45 PM EDT [facility] Monocyte % 12.0 0.0 - 14.0 % 04/15/2024 12:45 PM EDT [facility] Eosinophil % 5.1(H) 0.0 - 5.0 % 04/15/2024 12:45 PM EDT [facility] Basophil % 0.5 0.0 - 2.0 % 04/15/2024 12:45 PM EDT [facility] Neutrophil # 3.88 1.80 - 7.70 10*3/uL 04/15/2024 12:45 PM EDT [facility] Immature Grans # <0.03 0.00 - 0.03 10*3/uL 04/15/2024 12:45 PM EDT [facility] Lymphocyte # 1.40 1.00 - 4.75 10*3/uL 04/15/2024 12:45 PM EDT [facility] Monocyte # 0.80 0.00 - 6.00 10*3/uL 04/15/2024 12:45 PM EDT [facility] Eosinophil # 0.30 0.00 - 0.80 10*3/uL 04/15/2024 12:45 PM EDT [facility] Basophil # <0.03 0.00 - 0.20 10*3/uL 04/15/2024 12:45 PM EDT [facility] nRBC % 0.0 0 - 0 /100 WBCs 04/15/2024 12:45 PM EDT [facility] nRBC # <0.01 0.00 - 0.13 10*3/uL 04/15/2024 12:45 PM EDT [facility] Blood Structure of peripheral vein / Unknown Venipuncture / Unknown 04/15/2024 12:05 PM EDT 04/15/2024 12:05 PM EDT Salo Whyte MD LAB BLOOD ORDERABLES Final Result Performing Organization Address [facility] Co de Phone Number [facility] [address] [address], [place] [phone] * N-terminal ProBrain Natriuretic Peptide - [facility] & [facility]/[place] Only (04/15/2024 12:05 PM EDT) Pro-B-Type Natriuretic Peptide 457 <=1,800 pg/mL 04/15/2024 12:51 PM EDT [facility] Comment: RULE IN CHF [...] 12:05 PM EDT 04/15/2024 12:05 PM EDT Salo Whyte MD LAB BLOOD ORDERABLES Final Result Performing Organization Address [facility] Co de Phone Number [facility] [address] [address], [place] [phone] * (ABNORMAL) Comprehensive Metabolic Panel (04/15/2024 12:05 PM EDT) NA 140 136 - 145 mmol/L 04/15/2024 12:59 PM EDT [facility] K 4.1 3.5 - 5.1 mmol/L 04/15/2024 12:59 PM EDT [facility] Cl 97(L) 98 - 109 mmol/L 04/15/2024 12:59 PM EDT [facility] CO2 33(H) 22 - 32 mmol/L 04/15/2024 12:59 PM EDT [facility] Anion Gap 14 >=0 04/15/2024 12:59 PM EDT [facility] Glucose 94 60 - 99 mg/dL 04/15/2024 12:59 PM EDT [facility] Creatinine 1.13(H) 0.50 - 1.12 mg/dL 04/15/2024 12:59 PM EDT [facility] Calcium 9.5 8.4 - 10.4 mg/dL 04/15/2024 12:59 PM EDT [facility] Total Protein 6.6 6.6 - 8.7 g/dL 04/15/2024 12:59 PM EDT [facility] Albumin 3.1(L) 3.5 - 5.0 g/dL 04/15/2024 12:59 PM EDT [facility] Bilirubin, Total 0.3 0.2 - 1.2 mg/dL 04/15/2024 12:59 PM EDT [facility] Alkaline Phosphatase 105 40 - 129 U/L 04/15/2024 12:59 PM EDT [facility] AST 29 0 - 40 U/L 04/15/2024 12:59 PM T [facility] ALT 25 <=41 U/L 04/15/2024 12:59 PM T [facility] BUN 41(H) 8 - 23 mg/dL 04/15/2024 12:59 PM T [facility] eGFR 64 >=60 mL/min/1. 73m2 04/15/2024 12:59 PM T [facility] Comment:The estimated glomer ular [...] - 4.2 g/dL 04/15/2024 12:59 PM EDT [facility] A/G Ratio 0.9(L) 1.5 - 3.0 04/15/2024 12:59 PM EDT [facility] Blood Structure of peripheral vein / Unknown Venipuncture / Unknown 04/15/2024 12:05 PM EDT 04/15/2024 12:05 PM EDT us Salo Whyte MD LAB BLOOD ORDERABLES Final Result [facility] [address] [facility] [address] [place] [address], documented in this encounter Visit Diagnoses Diagnosis Acute respiratory failure, unspecified whether with hypoxia or hypercapnia (HCC) No diagnosis documented in this encounter Additional Health Concerns Infection Onset Date Last Indicated Resolved Time 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
--- OUTSIDE RECORDS SUMMARY | 2024-11-07 12:18 | XMS_ITS | Encounter Summary ---
Author Organization [facility] Address [address] [place] [address] Care Team Providers Care Medical Officer Name Role Phone Uday Sheehan Primary Care Provider [phone] Encounter Details Date Type Department Care Team (Late st Contact Info) Description 03/18/2024 Lab Requisition [facility] [address] [place] [address] Cecilio Bautista PA [address] [place] [address] Acute respiratory failure with hypoxia; No diagnosis [...] - 10.8 10*3/uL 03/18/2024 10:10 AM EDT [facility] RBC 2.81(L) 4.70 - 6.10 10*6/uL 03/18/2024 10:10 AM EDT [facility] Hemoglobin 8.1(L) 13.7 - 16.5 g/dL 03/18/2024 10:10 AM EDT [facility] Hematocrit 23.6(L) 40.5 - 48.5 % 03/18/2024 10:10 AM EDT [facility] MCV 84.0 80.0 - 94.0 fL 03/18/2024 10:10 AM EDT [facility] MCH 28.8 26.0 - 34.0 pg 03/18/2024 10:10 AM EDT [facility] MCHC 34.3 31.0 - 36.0 g/dL 03/18/2024 10:10 AM EDT [facility] RDW 15.1(H) 12.0 - 15.0 % 03/18/2024 10:10 AM EDT [facility] RDW Standard Deviation 45.7(H) 35.1 - 43.9 fL 03/18/2024 10:10 AM EDT [facility] Platelets 159 140 - 440 10*3/uL 03/18/2024 10:10 AM EDT [facility] MPV 10.1 9.4 - 12.4 fL 03/18/2024 10:10 AM EDT [facility] Neutrophil % 55.7 50.0 - 75.0 % 03/18/2024 10:10 AM EDT [facility] Immature Grans % 0.3 0.0 - 0.9 % 03/18/2024 10:10 AM EDT [facility] Lymphocyte % 28.2 20.0 - 44.0 % 03/18/2024 10:10 AM EDT [facility] Monocyte % 12.5 0.0 - 14.0 % 03/18/2024 10:10 AM EDT [facility] Eosinophil % 2.9 0.0 - 5.0 % 03/18/2024 10:10 AM EDT [facility] Basophil % 0.4 0.0 - 2.0 % 03/18/2024 10:10 AM EDT [facility] Neutrophil # 4.10 1.80 - 7.70 10*3/uL 03/18/2024 10:10 AM EDT [facility] Immature Grans # <0.03 0.00 - 0.03 10*3/uL 03/18/2024 10:10 AM EDT [facility] Lymphocyte # 2.10 1.00 - 4.75 10*3/uL 03/18/2024 10:10 AM EDT [facility] Monocyte # 0.90 0.00 - 6.00 10*3/uL 03/18/2024 10:10 AM EDT [facility] Eosinophil # 0.20 0.00 - 0.80 10*3/uL 03/18/2024 10:10 AM EDT [facility] Basophil # <0.03 0.00 - 0.20 10*3/uL 03/18/2024 10:10 AM EDT [facility] nRBC % 0.0 0 - 0 /100 WBCs 03/18/2024 10:10 AM EDT [facility] nRBC # <0.01 0.00 - 0.13 10*3/uL 03/18/2024 10:10 AM EDT [facility] Blood Structure of peripheral vein / Unknown 03/18/2024 9:25 AM EDT 03/18/2024 9:25 AM EDT Cecilio ZHU LAB BLOOD ORDERABLES Final R esult Performing Organization Address [facility]/ZIP Co de Phone Number [facility] [address] [address], [place] [phone] * Vancomycin, Trough (03/18/2024 9:25 AM EDT) Vancomycin Trough 15.6 10.0 - 20.0 ug/mL 03/18/2024 10:36 AM EDT [facility] Blood Structure of peripheral vein / Unknown 03/18/2024 9:25 AM EDT 03/18/2024 9:25 AM EDT Cecilio Bautista [place] LAB BLOOD ORDERABLES Final [facility] Performing Organization Address [facility] Co de Phone Number [facility] [address] [address], [place] [phone] * (ABNORMAL) Comprehensive Metabolic Panel (03/18/2024 9:25 AM EDT) NA 135(L) 136 - 145 mmol/L 03/18/2024 10:42 AM EDT [facility] K 3.6 3.5 - 5.1 mmol/L 03/18/2024 10:42 AM EDT [facility] Cl 96(L) 98 - 109 mmol/L 03/18/2024 10:42 AM EDT [facility] CO2 27 23 - 32 mmol/L 03/18/2024 10:42 AM EDT [facility] Anion Gap 16 >=0 03/18/2024 10:42 AM EDT [facility] Glucose 106(H) 60 - 99 mg/dL 03/18/2024 10:42 AM EDT [facility] Creatinine 1.00 0.50 - 1.12 mg/dL 03/18/2024 10:42 AM EDT [facility] Calcium 8.7 8.4 - 10.4 mg/dL 03/18/2024 10:42 AM EDT [facility] Total Protein 6.1(L) 6.6 - 8.7 g/dL 03/18/2024 10:42 AM EDT [facility] Albumin 3.1(L) 3.5 - 5.0 g/dL 03/18/2024 10:42 AM EDT [facility] Bilirubin, Total 0.5 0.2 - 1.2 mg/dL 03/18/2024 10:42 AM EDT [facility] Alkaline Phosphatase 107 40 - 129 U/L 03/18/2024 10:42 AM EDT [facility] AST 32 0 - 40 U/L 03/18/2024 10:42 AM EDT [facility] ALT 25 <=41 U/L 03/18/2024 10:42 AM EDT [facility] BUN 21 8 - 23 mg/dL 03/18/2024 10:42 AM EDT [facility] eGFR 74 >=60 mL/min/1. 73m2 03/18/2024 10:42 AM EDT [facility] Comment:The estimated glomer ular filtration [...] 2.1 - 4.2 g/dL 03/18/2024 10:42 AM EDT [facility] A/G Ratio 1.0(L) 1.5 - 3.0 03/18/2024 10:42 AM T [facility] Blood Structure of peripheral vein / Unknown 03/18/2024 9:25 AM EDT 03/18/2024 9:25 AM EDT us Cecilio ZHU LAB BLOOD ORDERABLES Final R esult [facility] [address] [place] [address], [place] [phone] documented in this encounter Visit Diagnoses Diagnosis [...] as of this encounter Care Teams Medical Officer Relationship Specialty Start Date End Date Uday Sheehan [address] [place] [address] [place] [address] PCP - General Internal Medicine 03/27/24 documented as of this encounter
--- OUTSIDE RECORDS SUMMARY | 2024-11-07 12:18 | XMS_ITS | Encounter Summary ---
Author Organization [facility] Address [address] [place] [address] Care Team Providers Care Extractor And Wringer Operator Name Role Phone Uday Sheehan Primary Care Provider [phone] Encounter Details Date Type Department Care Team (Late st Contact Info) Description 03/16/2024 Lab Requisition [facility] Lab [address] [place] [address] Cecilio Bautista PA [address] [place] [address] Acute respiratory failure with hypoxia; No diagnosis [...] this encounter Procedures * Due to [place] law, this organization might not be sharing negative HIV tests. Procedure Name Priority Date/Time Associated Diagnosis Comments VANCOMYCIN, TROUGH Routine 03/16/2024 11 :54 AM EDT Acute respiratory failure with hypoxia (HCC) No diagnosis documented in this encounter Results * Due to [place] law, this organization might not be sharing negative HIV tests. * (ABNORMAL) Vancomycin, Trough (03/16/2024 11:54 AM EDT) Vancomycin Trough 8.2(L) 10.0 - 20.0 ug/mL 03/16/2024 1:58 PM EDT [facility] Blood Structure of peripheral vein / Unknown 03/16/2024 11:54 AM EDT 03/16/2024 11:54 AM EDT Cecilio ZHU LAB BLOOD ORDERABLES Final R esult [facility] [address] [place] [address], [place] [phone] documented in this encounter Visit Diagnoses Diagnosis [...] documented as of this encounter Care Teams Extractor And Wringer Operator Relationship Specialty Start Date End Date Uday Sheehan [address] [place] [address] [place] [address] PCP - General Internal Medicine 03/27/24 documented as of this encounter
--- OUTSIDE RECORDS SUMMARY | 2024-11-07 12:18 | XMS_ITS | Encounter Summary ---
Author Organization [facility] Address [address] [place] [address] Care Team Providers Care Bus Girl Name Role Phone Uday Sheehan MD Primary Care Provider [phone] Encounter Details Date Type Department Care Team (Late st Contact Info) Description 11/07/2024 Lab Requisition [facility] [address] [place] [phone] Erica Charles NP [address] [place] [phone] Anemia, unspecified Social History Tobacco Use Types [...] Name Priority Date/Time Associated Diagnosis Comments CBC WITH AUTO DIFFERENTIAL Routine 11/07/2024 5:17 AM EDT Anemia, unspecified CBC AND DIFFERENTIAL Routine 11/07/2024 5:17 AM EDT Anemia, unspecified documented in this encounter Results * (ABNORMAL) CBC auto differential (11/07/2024 5:17 AM EDT) WBC 6.5 4.8 - 10.8 K/[facility] LAB HEMETOLOGY METHOD 11/07/2024 7:19 AM EDT [facility] RBC 2.50(L) 4.50 - 5.50 M/mcL LAB HEMETOLOGY METHOD 11/07/2024 7:19 AM [facility] Hemoglobin 6.7(L) 13.5 - 17.5 g/dL LAB HEMETOLOGY METHOD 11/07/2024 7:19 AM [facility] Hematocrit 23.3(L) 42.0 - 54.0 % LAB HEMETOLOGY METHOD 11/07/2024 7:19 AM [facility] MCV 94.3 79.0 - 98.0 FL LAB HEMETOLOGY METHOD 11/07/2024 7:19 AM [facility] MCH 27.1 27.0 - 32.0 pcg LAB HEMETOLOGY METHOD 11/07/2024 7:19 AM [facility] MCHC 28.8(L) 32.0 - 37.0 g/dL LAB HEMETOLOGY METHOD 11/07/2024 7:19 AM [facility] RDW 17.5(H) 11.0 - 15.0 % LAB HEMETOLOGY METHOD 11/07/2024 7:19 AM [facility] Platelets 322 130 - 400 K/mcL LAB HEMETOLOGY METHOD 11/07/2024 7:19 AM [facility] MPV 9.6 7.0 - 11.0 FL LAB HEMETOLOGY METHOD 11/07/2024 7:19 AM [facility] NRBC 0.0 <1.0 % LAB HEMETOLOGY METHOD 11/07/2024 7:19 AM [facility] NRBC Absolute 0.00 <0.10 K/mcL LAB HEMETOLOGY METHOD 11/07/2024 7:19 AM [facility] Neutrophils Relative 61.3 % LAB HEMETOLOGY METHOD 11/07/2024 7:19 AM [facility] Lymphocytes Relative 20.3 % LAB HEMETOLOGY METHOD 11/07/2024 7:19 AM [facility] Monocytes Relative 13.3 % LAB HEMETOLOGY METHOD 11/07/2024 7:19 AM [facility] Eosinophils Relative 3.7 % LAB HEMETOLOGY METHOD 11/07/2024 7:19 AM [facility] Basophils Relative 0.3 % LAB HEMETOLOGY METHOD 11/07/2024 7:19 AM [facility] Immature Granulocytes Relative 1.1 % LAB HEMETOLOGY METHOD 11/07/2024 7:19 AM [facility] Neutrophils Absolute 4.01 1.50 - 7.00 K/mcL LAB HEMETOLOGY METHOD 11/07/2024 7:19 AM [facility] Lymphocytes Absolute 1.33 1.00 - 5.00 K/mcL LAB HEMETOLOGY METHOD 11/07/2024 7:19 AM [facility] Monocytes Absolute 0.87 0.20 - 1.00 K/mcL LAB HEMETOLOGY METHOD 11/07/2024 7:19 AM [facility] Eosinophils Absolute 0.24 0.00 - 0.50 K/mcL LAB HEMETOLOGY METHOD 11/07/2024 7:19 AM [facility] Basophils Absolute 0.02 0.00 - 0.20 K/mcL LAB HEMETOLOGY METHOD 11/07/2024 7:19 AM [facility] Immature Granulocytes Absolute 0.07(H) 0.00 - 0.03 K/mcL LAB HEMETOLOGY METHOD 11/07/2024 7:19 AM [facility] Blood Venous blood specimen / Unknown Venipuncture / Unknown 11/07/2024 5:17 AM EDT 11/07/2024 6:39 AM EDT Erica Charles NP LAB BLOOD ORDERABLES Final Resul t [facility] [place] [facility] [address] [place] [address], documented in this encounter Visit Diagnoses Diagnosis Anemia, unspecified documented in this encounter Additional Health Concerns Infection Onset Date Last Indicated Resolved Time 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
--- OUTSIDE RECORDS SUMMARY | 2024-11-07 12:18 | XMS_ITS ---
Author Organization [facility] Address [address] [place] [address] Care Team Providers Care Knitter Wire Mesh Name Role Phone Pearl Garcia Primary Care Provider Lucila Phillip [phone] REASON FOR VISIT Cancel Encounters Encounter Location Date Provider Diagnosis [facility] [address] [place] [address] 08/08/2024 Lucila Kapoor Plan Of Treatment No Information Progress Notes * Ramon ATKINSONDOB:1939 (84 yo M)Acc No.[id number]:08/08/2024 Patient:?Ramon ATKINSON :1940???Age:84 Y???Sex:Male Address: [address] [place], [address] * true * Date:? Generated for Printi ng/Faxing/eTransmitting on:?11/07/2024 12:18 PM EDT
--- OUTSIDE RECORDS SUMMARY | 2024-11-07 12:18 | XMS_ITS | Clinical Summary ---
Author Organization [address] Address [address] [place] [address] Phone Care Team Providers Care Tobacco Sweeper Name Role Phone Uday Sheehan MD Primary Care Provider [phone] Encounters Date Type Department Care Team Description 11/07/2024 Lab Requisition [facility] Lab [address] [place] [address] Erica Charles NP Anemia, unspecified 11/01/2024 Lab Requisition [facility] Lab [address] [place] [address] Tabby Bledsoe MD Bacteremia 10/27/2024 Lab Requisition [facility] Lab [address] [place] [address] Tabby Bledsoe MD Bacteremia 10/19/2024 Lab Requisition [facility] Lab [address] [place] [address] Tabby Bledsoe MD Bacteremia 10/18/2024 Lab Requisition [facility] Lab [address] [place] [address] Tabby Bledsoe MD Osteomyelitis, unspecified (CMS/HCC V24, CMS/HCC V28) 10/17/2024 Lab Requisition [facility] Lab [address] [place] [address] Tabby Bledsoe MD Anemia, unspecified; Chronic kidney disease, unspecified 10/12/2024 Lab Requisition [facility] Lab [address] [place] [address] Tabby Bledsoe MD Bacteremia 10/06/2024 Lab Requisition [facility] Lab [address] [place] [address] Tabby Bledsoe MD Bacteremia 10/03/2024 Lab Requisition [facility] Lab [address] [place] [address] Tabby Bledsoe MD Anemia, unspecified 09/28/2024 Lab Requisition [facility] Lab [address] [place] [address] Tabby Bledsoe MD Bacteremia 09/25/[address] [facility] Lab [address] [place] [address] Tabby Bledsoe MD Chronic kidney disease, unspecified 09/20/2024 Lab Requisition [facility] [address] [place] [address] Tabby Bledsoe MD Bacteremia 09/18/2024 Lab Requisition [facility] [address] [place] [address] Tabby Bledsoe MD Anemia, unspecified; Other disorders of electrolyte and fluid balance, not elsewhere classified 09/15/2024 Lab Requisition [facility] [address] [place] [address] Tabby Bledsoe MD Bacteremia 09/08/2024 Lab Requisition [facility] [address] [place] [address] Tabby Bledsoe MD Bacteremia; Osteomyelitis, unspecified (CMS/HCC V24, CMS/[facility] V28) 09/05/2024 Lab Requisition [facility] [address] [place] [address] Tabby Bledsoe MD Osteomyelitis, unspecified ([facility] V24, [facility] V28); Extended spectrum beta lactamase (ESBL) resistance 09/04/2024 Lab Requisition [facility] Lab [address] [place] [address] Tabby Bledsoe MD Sequelae of unspecified nutritional deficiency; Encounter for therapeutic drug level monitoring 08/31/2024 Lab Requisition [facility] Lab [address] [place] [phone] Tabby Bledsoe MD Bacteremia 08/28/2024 Lab Requisition [facility] Lab [address] [place] [address] Tabby Bledsoe MD Anemia, unspecified 08/24/2024 Lab Requisition [facility] Lab [address] [place] [address] Tabby Bledsoe MD Bacteremia; Heart failure, unspecified (CMS/[facility] V24, [facility] V28); Pressure ulcer of unspecified site, unspecified stage 08/21/2024 Lab Requisition [facility] Lab [address] [place] [phone] Tabby Bledsoe MD Anemia, unspecified 08/18/2024 Lab Requisition [facility] Lab [address] [place] [address] Tabby Bledsoe MD Bacteremia from Last 3 Months Social History Tobacco [...] Vaccines (1 of 2) 02/15/1990 RSV Immunization Adult Patients (1 - 1-dose 75+ series) 02/15/2015 Cholesterol Screening (Lipid Panel) 08/08/2023 Depression Screening 08/08/2023 Falls Risk Assessment 08/08/2023 Medicare Annual Wellness Visit 08/08/2023 Social Influencers of Health Screening 08/08/2023 COVID-19 Vaccine ( season) 2024 11/09/2021, 04/05/2021 Hypertension/CHF/CAD Annual BMP Blood Test 11/04/2025 11/04/2024, 10/14/2024, 10/07/2024, Additional history exists Influenza Vaccine Completed 04/08/2024 [...] age to complete this topic Meningococcal B Vaccine Aged Out No l onger eligible based on patient's age to complete [...] Routine 11/07/2024 5:17 AM EDT Anemia, unspecified BASIC METABOLIC PANEL Routine 11/04/2024 9:52 AM EDT Bacteremia COMPLETE BLOOD COUNT Routine 11/04/2024 9:52 AM EDT Bacteremia SEDIMENTATION RATE Routine 10/18/2024 7: 01 AM EDT Osteomyelitis, unspecified (CMS/HCC V24, [facility] V28) C-REACTIVE PROTEIN Routine 10/18/2024 7: 01 AM EDT Osteomyelitis, unspecified ([facility] V24, [facility] V28) COMPLETE BLOOD COUNT Routine 10/18/2024 7:01 AM EDT Osteomyelitis, unspecified ([facility] V24, [facility] V28) C-REACTIVE PROTEIN Routine 10/17/2024 7: 07 AM EDT Anemia, unspecified Chronic kidney disease, unspecified SEDIMENTATION RATE Routine 10/17/2024 7: 07 AM EDT Anemia, unspecified Chronic kidney disease, unspecified COMPLETE BLOOD COUNT Routine 10/17/2024 7:07 AM EDT Anemia, unspecified Chronic kidney disease, unspecified COMPREHENSIVE METABOLIC PANEL Routine 10/14/2024 7:07 AM EDT Bacteremia COMPLETE BLOOD COUNT Routine 10/14/2024 7:07 AM EDT Bacteremia COMPREHENSIVE METABOLIC PANEL Routine 10/07/2024 8:53 AM EDT Bacteremia COMPLETE BLOOD COUNT Routine 10/07/2024 8:53 AM EDT Bacteremia BASIC METABOLIC PANEL Routine 10/03/2024 5:24 AM EDT Anemia, unspecified COMPLETE BLOOD COUNT Routine 10/03/2024 5:24 AM EDT Anemia, unspecified COMPREHENSIVE METABOLIC PANEL Routine 09/30/2024 8:29 AM EDT Bacteremia COMPLETE BLOOD COUNT Routine 09/30/2024 8:29 AM EDT Bacteremia PREALBUMIN Routine 09/25/2024 5:37 AM EDT Chronic kidney disease, unspecified COMPREHENSIVE METABOLIC PANEL Routine 09/23/2024 7:46 AM EDT Bacteremia COMPLETE BLOOD COUNT Routine 09/23/2024 7:46 AM EDT Bacteremia COMPREHENSIVE METABOLIC PANEL Routine 09/18/2024 8:38 AM EDT Anemia, unspecified Other disorders of electrolyte and fluid balance, not elsewhere classified COMPLETE BLOOD COUNT Routine 09/18/2024 8:38 AM EDT Anemia, unspecified Other disorders of electrolyte and fluid balance, not elsewhere classified VANCOMYCIN, TROUGH Routine 09/09/2024 9: 00 AM EST Bacteremia Osteomyelitis, unspecified (CMS/HCC) COMPREHENSIVE METABOLIC PANEL Routine 09/09/2024 9:00 AM EST Bacteremia Osteomyelitis, unspecified (CMS/HCC) COMPLETE BLOOD COUNT Routine 09/09/2024 9:00 AM EST Bacteremia Osteomyelitis, unspecified (CMS/HCC) VANCOMYCIN, TROUGH Routine 09/05/2024 6: 37 AM EST Osteomyelitis, unspecified (CMS/HCC) Extended spectrum beta lactamase (ESBL) resistance VANCOMYCIN, RANDOM Routine 09/04/2024 7: 02 AM EST Sequelae of unspecified nutritional deficiency Encounter for therapeutic drug level monitoring VANCOMYCIN, TROUGH Routine 09/04/2024 7: 02 AM EST Sequelae of unspecified nutritional deficiency Encounter for therapeutic drug level monitoring COMPREHENSIVE METABOLIC PANEL Routine 09/04/2024 7:02 AM EST Sequelae of unspecified nutritional deficiency Encounter for therapeutic drug level monitoring COMPLETE BLOOD COUNT Routine 09/04/2024 7:02 AM EST Sequelae of unspecified nutritional deficiency Encounter for therapeutic drug level monitoring COMPLETE BLOOD COUNT Routine 08/29/2024 5:17 AM [...] COUNT Routine 08/19/2024 8:46 AM EST Bacteremia from Last 3 Months Results * (ABNORMAL) CBC auto differential (11/07/2024 5:17 AM EDT) [facility] WBC 6.5 4.8 - 10.8 K/mcL LAB HEMETOLOGY METHOD 11/07/2024 7:[address] [facility] RBC 2.50(L) 4.50 - 5.50 M/mcL LAB HEMETOLOGY METHOD 11/07/2024 7:[address] [facility] Hemoglobin 6.7(L) 13.5 - 17.5 g/dL LAB HEMETOLOGY METHOD 11/07/2024 7:[address] [facility] Hematocrit 23.3(L) 42.0 - 54.0 % LAB HEMETOLOGY METHOD 11/07/2024 7:[address] [facility] MCV 94.3 79.0 - 98.0 FL LAB HEMETOLOGY METHOD 11/07/2024 7:[address] [facility] MCH 27.1 27.0 - 32.0 pcg LAB HEMETOLOGY METHOD 11/07/2024 7:[address] [facility] MCHC 28.8(L) 32.0 - 37.0 g/dL LAB HEMETOLOGY METHOD 11/07/2024 7:[address] [facility] RDW 17.5(H) 11.0 - 15.0 % LAB HEMETOLOGY METHOD 11/07/2024 7:[address] [facility] Platelets 322 130 - 400 K/mcL LAB HEMETOLOGY METHOD 11/07/2024 7:[address] [facility] MPV 9.6 7.0 - 11.0 FL LAB HEMETOLOGY METHOD 11/07/2024 7:[address] [facility] NRBC 0.0 <1.0 % LAB HEMETOLOGY METHOD 11/07/2024 7:[address] [facility] NRBC Absolute 0.00 <0.10 K/mcL LAB HEMETOLOGY METHOD 11/07/2024 7:[address] [facility] Neutrophils Relative 61.3 % LAB HEMETOLOGY METHOD 11/07/2024 7:[address] [facility] Lymphocytes Relative 20.3 % LAB HEMETOLOGY METHOD 11/07/2024 7:[address] [facility] Monocytes Relative 13.3 % LAB HEMETOLOGY METHOD 11/07/2024 7:[address] [facility] Eosinophils Relative 3.7 % LAB HEMETOLOGY METHOD 11/07/2024 7:[address] [facility] Basophils Relative 0.3 % LAB HEMETOLOGY METHOD 11/07/2024 7:[address] [facility] Immature Granulocytes Relative 1.1 % LAB HEMETOLOGY METHOD 11/07/2024 7:19 AM EDT [facility] Neutrophils Absolute 4.01 1.50 - 7.00 K/[facility] LAB HEMETOLOGY METHOD 11/07/2024 7:19 AM EDT [facility] Lymphocytes Absolute 1.33 1.00 - 5.00 K/mcL LAB HEMETOLOGY METHOD 11/07/2024 7:19 AM EDT [facility] Monocytes Absolute 0.87 0.20 - 1.00 K/mcL LAB HEMETOLOGY METHOD 11/07/2024 7:19 AM EDT [facility] Eosinophils Absolute 0.24 0.00 - 0.50 K/[facility] LAB HEMETOLOGY METHOD 11/07/2024 7:19 AM EDT [facility] Basophils Absolute 0.02 0.00 - 0.20 K/mcL LAB HEMETOLOGY METHOD 11/07/2024 7:19 AM EDT [facility] Immature Granulocytes Absolute 0.07(H) 0.00 - 0.03 K/[facility] LAB HEMETOLOGY METHOD 11/07/2024 7:19 AM EDT [facility] Blood Venous blood specimen / Unknown Venipuncture / Unknown 11/07/2024 5:17 AM EDT 11/07/2024 6:39 AM EDT us Erica Charles NP LAB BLOOD ORDERABLES Final Resul t [facility] [address] [place] [address], * (ABNORMAL) Complete blood count (11/04/2024 9:52 AM EDT) Only the most recent of15 resultswithin the time period is included. WBC 5.6 4.8 - 10.8 K/mcL LAB HEMETOLOGY METHOD 11/04/2024 1:17 PM EDT [facility] RBC 2.40(L) 4.50 - 5.50 M/mcL LAB HEMETOLOGY METHOD 11/04/2024 1:17 PM EDT [facility] Hemoglobin 6.5(L) 13.5 - 17.5 g/dL LAB HEMETOLOGY METHOD 11/04/2024 1:[address] [facility] Hematocrit 21.8(L) 42.0 - 54.0 % LAB HEMETOLOGY METHOD 11/04/2024 1:[address] [facility] MCV 92.0 79.0 - 98.0 FL LAB HEMETOLOGY METHOD 11/04/2024 1:[address] [facility] MCH 27.4 27.0 - 32.0 pcg LAB HEMETOLOGY METHOD 11/04/2024 1:[address] [facility] MCHC 29.8(L) 32.0 - 37.0 g/dL LAB HEMETOLOGY METHOD 11/04/2024 1:[address] [facility] RDW 17.2(H) 11.0 - 15.0 % LAB HEMETOLOGY METHOD 11/04/2024 1:[address] [facility] Platelets 224 130 - 400 K/mcL LAB HEMETOLOGY METHOD 11/04/2024 1:[address] [facility] MPV 9.8 7.0 - 11.0 FL LAB HEMETOLOGY METHOD 11/04/2024 1:[address] [facility] NRBC 0.0 <1.0 % LAB HEMETOLOGY METHOD 11/04/2024 1:[address] [facility] NRBC Absolute 0.00 <0.10 K/mcL LAB HEMETOLOGY METHOD 11/04/2024 1:[address] [facility] Blood Venous blood specimen / Unknown Venipuncture / Unknown 11/04/2024 9:52 AM EDT 11/04/2024 11:23 AM EDT us Tabby Bledsoe MD LAB BLOOD ORDERABLES Fin al Result [facility] [address] [place] [address], * (ABNORMAL) Basic metabolic panel (11/04/2024 9:52 AM EDT) Only the most recent of3 resultswithin the time period is included. Pathologist [facility] Sodium 142 133 - 145 mmol/L LAB CHEMISTRY METHOD 11/04/2024 7:[address] [facility] Potassium 3.9 3.5 - 5.5 mmol/L LAB CHEMISTRY METHOD 11/04/2024 7:[address] [facility] Chloride 110 96 - 110 mmol/L LAB CHEMISTRY METHOD 11/04/2024 7:[address] [facility] CO2 25 21 - 32 mmol/L LAB CHEMISTRY METHOD 11/04/2024 7:[address] [facility] Anion Gap 7 3 - 11 LAB CHEMISTRY METHOD 11/04/2024 7:[address] [facility] Glucose 113(H) 70 - 100 mg/dL LAB CHEMISTRY METHOD 11/04/2024 7:[address] [facility] BUN 30(H) 5 - 25 mg/dL LAB CHEMISTRY METHOD 11/04/2024 7:[address] [facility] Creatinine 1.06 0.70 - 1.30 mg/dL LAB CHEMISTRY METHOD 11/04/2024 7:[address] [facility] eGFR 69 >=60 mL/min/1. 73m2 LAB CHEMISTRY METHOD 11/04/2024 7:[address] [facility] Comment:Calculation based on the??Chronic Kidney Disease Epidemiology Collaboration (CKD-EPI) equation refit??without adjustment for race. BUN/Creatinine Ratio 28.3 LAB CHEMISTRY METHOD 11/04/2024 7:[address] [facility] Calcium 7.6(L) 8.5 - 10.5 mg/dL LAB CHEMISTRY METHOD 11/04/2024 7:30 PM EDT [facility] Blood Venous blood specimen / Unknown Venipuncture / Unknown 11/04/2024 9:52 AM EDT 11/04/2024 11:40 AM EDT Tabby Bledsoe MD LAB BLOOD ORDERABLES Fin al Result Performing Organization Address City/[facility] Co de Phone Number [facility] [address] [place] [address], [place] [phone] * (ABNORMAL) Sedimentation rate (10/18/2024 7:01 AM EDT) Only the most recent of2 resultswithin the time period is included. Sed Rate 58(H) 0 - 20 mm/hr LAB HEMETOLOGY METHOD 10/18/2024 10:16 AM EDT [facility] Blood Venous blood specimen / Unknown Venipuncture / Unknown 10/18/2024 7:01 AM EDT 10/18/2024 9:11 AM EDT Tabby Bledsoe MD LAB BLOOD ORDERABLES Fin al Result Performing Organization Address [facility]/ZIP Co de Phone Number [facility] [address] [place] [address], [place] [phone] * (ABNORMAL) C-reactive protein (10/18/2024 7:01 AM EDT) Only the most recent of2 resultswithin the time period is included. C-Reactive Protein 13.40(H) <=0.50 mg/dL LAB CHEMISTRY METHOD 10/18/2024 10:08 AM EDT [facility] Blood Venous blood specimen / Unknown Venipuncture / Unknown 10/18/2024 7:01 AM EDT 10/18/2024 9:11 AM EDT us Tabby Bledsoe MD LAB BLOOD ORDERABLES Fin al Result [facility] [address] [place] [address], [place] [phone] * (ABNORMAL) Comprehensive metabolic panel (10/14/2024 7:07 AM EDT) Only the most recent of9 resultswithin the time period is included. Sodium 140 133 - 145 mmol/L LAB CHEMISTRY METHOD 10/14/2024 1:[address] [facility] Potassium 4.1 3.5 - 5.5 mmol/L LAB CHEMISTRY METHOD 10/14/2024 1:[address] [facility] Chloride 105 96 - 110 mmol/L LAB CHEMISTRY METHOD 10/14/2024 1:[address] [facility] CO2 28 21 - 32 mmol/L LAB CHEMISTRY METHOD 10/14/2024 1:[address] [facility] Anion Gap 7 3 - 11 LAB CHEMISTRY METHOD 10/14/2024 1:[address] [facility] Glucose 94 70 - 100 mg/dL LAB CHEMISTRY METHOD 10/14/2024 1:[address] [facility] BUN 40(H) 5 - 25 mg/dL LAB CHEMISTRY METHOD 10/14/2024 1:[address] [facility] Creatinine 1.19 0.70 - 1.30 mg/dL LAB CHEMISTRY METHOD 10/14/2024 1:[address] [facility] eGFR 60 >=60 mL/min/1. 73m2 LAB CHEMISTRY METHOD 10/14/2024 1:[address] [facility] Comment:Calculation based on the??Chronic Kidney Disease Epidemiology Collaboration (CKD-EPI) equation refit??without adjustment for race. BUN/Creatinine Ratio 33.6 LAB CHEMISTRY METHOD 10/14/2024 1:24 PM T [facility] Calcium 8.2(L) 8.5 - 10.5 mg/dL LAB CHEMISTRY METHOD 10/14/2024 1:[address] [facility] AST (SGOT) 150(H) 10 - 42 unit/L LAB CHEMISTRY METHOD 10/14/2024 1:[address] [facility] Comment:Results verified by repeat testing ALT (SGPT) 122(H) 10 - 60 unit/L LAB CHEMISTRY METHOD 10/14/2024 1:[address] [facility] Comment:Results verified by repeat testing Alkaline Phosphatase 113 42 - 121 unit/L LAB CHEMISTRY METHOD 10/14/2024 1:[address] [facility] Total Protein 5.7(L) 6.0 - 8.0 g/dL LAB CHEMISTRY METHOD 10/14/2024 1:[address] [facility] Albumin 1.5(L) 3.2 - 5.0 g/dL LAB CHEMISTRY METHOD 10/14/2024 1:[address] [facility] Total Bilirubin 0.3 0.0 - 1.4 mg/dL LAB CHEMISTRY METHOD 10/14/2024 1:[address] [facility] Blood Venous blood specimen / Unknown Venipuncture / Unknown 10/14/2024 7:07 AM EDT 10/14/2024 10:10 AM EDT us Tabby Bledsoe MD LAB BLOOD ORDERABLES Fin al Result [facility] [address] [place] [address], * (ABNORMAL) Prealbumin (09/25/2024 5:37 AM EDT) Only the most recent of2 resultswithin the time period is included. Prealbumin 10(L) 18 - 45 mg/dL LAB CHEMISTRY METHOD 09/25/2024 3:27 PM EDT [facility] Blood Venous blood specimen / Unknown Venipuncture / Unknown 09/25/2024 5:37 AM EDT 09/25/2024 11:49 AM EDT Tabby Bledsoe MD LAB BLOOD ORDERABLES Fin al Result Performing Organization Address City/[facility]/ZIP Co de Phone Number [facility] [address] [place] [address], [place] [phone] * Vancomycin, trough (09/09/2024 9:00 AM EST) Only the most recent of3 resultswithin the time period is included. Vancomycin Trough 18.4 10.0 - 20.0 mcg/mL LAB CHEMISTRY METHOD 09/09/2024 1:34 PM EST [facility] Blood Venous blood specimen / Unknown Venipuncture / Unknown 09/09/2024 9:00 AM EST 09/09/2024 11:09 AM EST Tabby Bledsoe MD LAB BLOOD ORDERABLES Fin al Result Performing Organization Address [facility] de Phone Number [facility] [address] [place] [address], [place] [phone] * Vancomycin random (09/04/2024 7:02 AM EST) Vancomycin Rm 18.9 mcg/mL LAB CHEMISTRY METHOD 09/04/2024 12:36 PM EST [facility] Blood Venous blood specimen / Unknown Venipuncture / Unknown 09/04/2024 7:02 AM EST 09/04/2024 9:13 AM EST Tabby Bledsoe MD LAB BLOOD ORDERABLES Fin al Result Performing Organization Address City/[facility]/ZIP Co de Phone Number [facility] [address] [place] [address], [place] [phone] from Last 3 Months Additional Health Concerns Infection Onset Date 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
--- OUTSIDE RECORDS SUMMARY | 2024-11-07 12:18 | XMS_ITS | Encounter Summary ---
Author Organization [facility] Address [address] [place] [address] Care Team Providers Care Head Sugar Reprocess Operator Name Role Phone Uday Sheehan MD Primary Care Provider [phone] Encounter Details Date Type Department Care Team (Late st Contact Info) Description 10/27/2024 Lab Requisition [facility] [address] [facility] [place] [address] Tabby Bledsoe MD [address] [address] Bacteremia Social History Tobacco Use Types Packs/Day [...] documented as of this encounter Care Teams Head Sugar Reprocess Operator Relationship Specialty Start Date End Date Uday Sheehan MD [address] [place] [address] PCP - General Salesperson [employer] 12/19/16 documented as of this encounter
--- OUTSIDE RECORDS SUMMARY | 2024-11-07 12:18 | XMS_ITS | Encounter Summary ---
Author Organization [facility] Address [address] [place] [address] Care Team Providers Care Cascade Operator Name Role Phone Uday Sheehan Primary Care Provider [phone] Encounter Details Date Type Department Care Team (Late st Contact Info) Description 03/12/2024 Lab Requisition [facility] [address] [place] [address] Valarie Pierson MD [address] [place] [address] Acute and chronic respiratory failure with hypoxia; [...] Date/Time Associated Diagnosis Comments RESPIRATORY PANEL PLUS, BANDER AND CELLOPHANER MACHINE HELPER SWAB ([facility]) Routine 03/12/2024 9:35 AM EDT Acute and [...] negative HIV tests. * Respiratory Panel w/Sars-CoV-2, BANDER AND CELLOPHANER MACHINE HELPER Swab - [place] only (03/12/2024 9:35 AM EDT) Adenovirus DNA (PCR) Not Detected Not Detected QIAGEN QIASTAT-D X 03/12/2024 11:56 AM EDT [facility] Human Coronavirus 229E RNA (PCR) Not Detected Not Detected QIAGEN QIASTAT-D X 03/12/2024 11:56 AM EDT [facility] Human Coronavirus HKU1 RNA (PCR) Not Detected Not Detected QIAGEN QIASTAT-D X 03/12/2024 11:56 AM EDT [facility] Human Coronavirus NL63 RNA (PCR) Not Detected Not Detected QIAGEN QIASTAT-D X 03/12/2024 11:56 AM EDT [facility] Human Coronavirus OC43 RNA (PCR) Not Detected Not Detected QIAGEN QIASTAT-D X 03/12/2024 11:56 AM EDT [facility] Human Metapneumovirus RNA (PCR) Not Detected Not Detected QIAGEN QIASTAT-D X 03/12/2024 11:56 AM EDT [facility] Influenza A RNA (PCR) Not Detected Not Detected QIAGEN QIASTAT-D X 03/12/2024 11:56 AM EDT [facility] Influenza A H1 RNA (PCR) Not Detected Not Detected QIAGEN QIASTAT-D X 03/12/2024 11:56 AM EDT [facility] Influenza A H3 RNA (PCR) Not Detected Not Detected QIAGEN QIASTAT-D X 03/12/2024 11:56 AM EDT [facility] Influenza A H1N1 RNA (PCR) Not Detected Not Detected QIAGEN QIASTAT-D X 03/12/2024 11:56 AM EDT [facility] Influenza B RNA (PCR) Not Detected Not Detected QIAGEN QIASTAT-D X 03/12/2024 11:56 AM EDT [facility] Parainfluenza 1 RNA (PCR) Not Detected Not Detected QIAGEN QIASTAT-D X 03/12/2024 11:56 AM EDT [facility] Parainfluenza 2 RNA (PCR) Not Detected Not Detected QIAGEN QIASTAT-D X 03/12/2024 11:56 AM EDT [facility] Parainfluenza 3 RNA (PCR) Not Detected Not Detected QIAGEN QIASTAT-D X 03/12/2024 11:56 AM EDT [facility] Parainfluenza 4 RNA (PCR) Not Detected Not Detected QIAGEN QIASTAT-D X 03/12/2024 11:56 AM EDT [facility] Human Rhinovirus/Enterov irus RNA (PCR) Not Detected Not Detected QIAGEN QIASTAT-D X 03/12/2024 11:56 AM EDT [facility] RSV RNA (PCR) Not Detected Not Detected QIAGEN QIASTAT-D X 03/12/2024 11:56 AM EDT [facility] SARS CoV-2 RNA (PCR) Not Detected Not Detected QIAGEN QIASTAT-D X 03/12/2024 11:56 AM EDT [facility] Bordetella pertussis DNA (PCR) Not Detected Not Detected QIAGEN QIASTAT-D X 03/12/2024 11:56 AM EDT [facility] Chlamydophila pneumoniae DNA (PCR) Not Detected Not Detected QIAGEN QIASTAT-D X 03/12/2024 11:56 AM EDT [facility] Mycoplasma pneumoniae DNA (PCR) Not Detected Not Detected QIAGEN QIASTAT-D X 03/12/2024 11:56 AM EDT [facility] Nasopharyngeal Swab Specimen from nasopharyngeal structure / Unknown 03/12/2024 9:35 AM EDT 03/12/2024 9:58 AM EDT Narrative [facility] - 03/12/2024 11:56 AM EDT Methodology: [...] the specimen above the limit of detection. Valarie Pierson MD LAB BODY FLUIDS AND STOOLS ORD ERABLES Final Result [facility] [address] [facility] [address] [place] [address], * Methicillin Resistant Staphylococcus aureus (MRSA) Culture Screen (03/12/2024 9:35 AM EDT) MRSA Culture No methicillin resistant Staphylococcus aureus (MRSA) isolated. [facility]UAL 03/14/2024 7:25 AM EDT [facility] Swab Nasal structure / Unknown 03/12/2024 9:35 AM EDT 03/12/2024 9:58 AM EDT Valarie Pierson MD LAB MICROBIOLOGY - GENERAL ORD ERABLES Final Result [facility] [address] [place] [address] [address] [place] [address], * (ABNORMAL) CBC Auto Differential (03/12/2024 9:35 AM EDT) WBC 7.1 4.8 - 10.8 10*3/uL 03/12/2024 10:00 AM EDT [facility] RBC 3.25(L) 4.70 - 6.10 10*6/uL 03/12/2024 10:00 AM EDT [facility] Hemoglobin 9.2(L) 13.7 - 16.5 g/dL 03/12/2024 10:00 AM EDT [facility] Hematocrit 28.1(L) 40.5 - 48.5 % 03/12/2024 10:00 AM EDT [facility] MCV 86.5 80.0 - 94.0 fL 03/12/2024 10:00 AM EDT [facility] MCH 28.3 26.0 - 34.0 pg 03/12/2024 10:00 AM EDT [facility] MCHC 32.7 31.0 - 36.0 g/dL 03/12/2024 10:00 AM EDT [facility] RDW 15.0 12.0 - 15.0 % 03/12/2024 10:00 AM EDT [facility] RDW Standard Deviation 47.8(H) 35.1 - 43.9 fL 03/12/2024 10:00 AM EDT [facility] Platelets 124(L) 140 - 440 10*3/uL 03/12/2024 10:00 AM EDT [facility] MPV 10.6 9.4 - 12.4 fL 03/12/2024 10:00 AM EDT [facility] Neutrophil % 56.8 50.0 - 75.0 % 03/12/2024 10:00 AM EDT [facility] Immature Grans % 0.3 0.0 - 0.9 % 03/12/2024 10:00 AM EDT [facility] Lymphocyte % 27.0 20.0 - 44.0 % 03/12/2024 10:00 AM EDT [facility] Monocyte % 11.5 0.0 - 14.0 % 03/12/2024 10:00 AM EDT [facility] Eosinophil % 3.8 0.0 - 5.0 % 03/12/2024 10:00 AM EDT [facility] Basophil % 0.6 0.0 - 2.0 % 03/12/2024 10:00 AM EDT [facility] Neutrophil # 4.03 1.80 - 7.70 10*3/uL 03/12/2024 10:00 AM EDT [facility] Immature Grans # <0.03 0.00 - 0.03 10*3/uL 03/12/2024 10:00 AM EDT [facility] Lymphocyte # 1.90 1.00 - 4.75 10*3/uL 03/12/2024 10:00 AM EDT [facility] Monocyte # 0.80 0.00 - 6.00 10*3/uL 03/12/2024 10:00 AM EDT [facility] Eosinophil # 0.30 0.00 - 0.80 10*3/uL 03/12/2024 10:00 AM EDT [facility] Basophil # <0.03 0.00 - 0.20 10*3/uL 03/12/2024 10:00 AM EDT [facility] nRBC % 0.0 0 - 0 /100 WBCs 03/12/2024 10:00 AM EDT [facility] nRBC # <0.01 0.00 - 0.13 10*3/uL 03/12/2024 10:00 AM EDT [facility] Blood Structure of peripheral vein / Unknown 03/12/2024 9:35 AM EDT 03/12/2024 9:35 AM EDT us Valarie Pierson MD LAB BLOOD ORDERABLES Final Res ult Performing Organization Address [facility]/ZIP Co de Phone Number [facility] [address] [address], [place] [phone] * (ABNORMAL) TSH (03/12/2024 9:35 AM EDT) TSH 11.100(H) 0.270 - 4.200 uIU/mL 03/12/2024 10:37 AM EDT [facility] Blood Structure of peripheral vein / Unknown 03/12/2024 9:35 AM EDT 03/12/2024 9:35 AM EDT Valarie Pierson MD LAB BLOOD ORDERABLES Final Res ult Performing Organization Address [facility]/ZIP Co de Phone Number [facility] [address] [address], [place] [phone] * (ABNORMAL) Comprehensive Metabolic Panel (03/12/2024 9:35 AM EDT) NA 137 136 - 145 mmol/L 03/12/2024 10:37 AM EDT [facility] K 3.9 3.5 - 5.1 mmol/L 03/12/2024 10:37 AM EDT [facility] Cl 101 98 - 109 mmol/L 03/12/2024 10:37 AM EDT [facility] CO2 27 23 - 32 mmol/L 03/12/2024 10:37 AM EDT [facility] Anion Gap 13 >=0 03/12/2024 10:37 AM EDT [facility] Glucose 99 60 - 99 mg/dL 03/12/2024 10:37 AM EDT [facility] Creatinine 1.08 0.50 - 1.12 mg/dL 03/12/2024 10:37 AM EDT [facility] Calcium 9.4 8.4 - 10.4 mg/dL 03/12/2024 10:37 AM T [facility] Total Protein 6.6 6.6 - 8.7 g/dL 03/12/2024 10:37 AM [facility] Albumin 3.2(L) 3.5 - 5.0 g/dL 03/12/2024 10:37 AM EDT [facility] Bilirubin, Total 0.4 0.2 - 1.2 mg/dL 03/12/2024 10:37 AM T [facility] Alkaline Phosphatase 109 40 - 129 U/L 03/12/2024 10:37 AM T [facility] AST 62(H) 0 - 40 U/L 03/12/2024 10:37 AM [facility] ALT 65(H) <=41 U/L 03/12/2024 10:37 AM [facility] BUN 14 8 - 23 mg/dL 03/12/2024 10:37 AM [facility] eGFR 68 >=60 mL/min/1. 73m2 03/12/2024 10:37 AM T [facility] Comment:The estimated glomer ular filtration [...] 2.1 - 4.2 g/dL 03/12/2024 10:37 AM [facility] A/G Ratio 0.9(L) 1.5 - 3.0 03/12/2024 10:37 AM EDT [facility] Blood Structure of peripheral vein / Unknown 03/12/2024 9:35 AM EDT 03/12/2024 9:35 AM EDT us Valarie Pierson MD LAB BLOOD ORDERABLES Final Res ult [facility] [address] [facility] [address] [place] [address], documented in this encounter Visit Diagnoses Diagnosis [...] documented as of this encounter Care Teams Cascade Operator Relationship Specialty Start Date End Date Uday Sheehan [address] [place] [address] [place] [address] PCP - General Internal Medicine 03/27/24 documented as of this encounter
--- OUTSIDE RECORDS SUMMARY | 2024-11-07 12:18 | XMS_ITS | Patient Health Record ---
Author Organization [facility] Address [address] [place] [address] Care Team Providers Care Rn Geriatric Name Role Phone Pearl Garcia Primary Care Provider Lucila Phillip Unavailable [phone] Reason For Referral No Information Encounters Encounter Location Date Provider Diagnosis [facility] [address] [place] [address] 08/08/2024 Lucila Kapoor Plan Of Treatment No Information Insurance Providers Payer Name Payer Address Payer Phone Subscriber Number Group Number Insured Name Patient Relationship to Insured Coverage Start Date Coverage End Date Medicare National [facility] [address] [place] [address] [id number] [place] i Self - patient is the insured [employer] [address] [place] [address] [id number] [place] i Self - patient is the insured
--- OUTSIDE RECORDS SUMMARY | 2024-11-07 12:18 | XMS_ITS ---
Author Organization [facility] Address [address] [place] [address] Care Team Providers Care Marine Steamfitter Name Role Phone Pearl Garcia Primary Care Provider Lucila Phillip [facility] [phone] Encounters Encounter Location Date Provider Diagnosis [facility] [address] [place] [address] 08/15/2024 Lucila Kapoor Plan Of Treatment No Information Progress Notes * DEMETRIO RamonDOB:1939 (84 yo M)Acc No.[id number]:08/15/2024 Progress Notes Patient:?PARISWILBERTOPINKY Ramon Provider:?Lucila Kapoor DPM :1940???Age:84 Y???Sex:Male Kevin e:08/15/2024 Address:[address] [place] [address] [id number] Pcp:Pearl Garcia Subjective: * Chief Complaints: * [...] DPM Date:?0 08/15/2024 Generated for Braeden boyce/Faheather/eTransmitting on:?11/07/2024 12:17 PM EDT
--- OUTSIDE RECORDS SUMMARY | 2024-11-07 12:18 | XMS_ITS | Clinical Summary ---
Author Organization [facility], Address [address] [place] [address] [place] [address] Phone Care Team Providers Care Infrastructure Director Name Role Phone Uday Sheehan MD Primary Care Provider [phone] Allergies Active Allergy Reactions Criticality Noted Date [...] Due Date Last Done Comments Pneumococcal Vaccine: 50+ Ye ars (1 of 2 - PCV) 02/15/1959 Influenza Vaccine Completed 04/08/2024 Hepatitis B Vaccine Aged Out No longe r eligible based on patient's age to complete this topic Insurance Medicare [facility] Medicare [facility] Medicare [facility] Care Teams Infrastructure Director Relationship Specialty Start Date End Date Uday Sheehan MD [address] [place] PCP - General 05/14/19
--- OUTSIDE RECORDS SUMMARY | 2024-11-07 12:18 | XMS_ITS | Encounter Summary ---
Author Organization [facility] Address [address] [place] [address] Care Team Providers Care Scarfing Machine Operator Name Role Phone Uday Sheehan Primary Care Provider [phone] Encounter Details Date Type Department Care Team (Late st Contact Info) Description 03/11/2024 Lab Requisition [facility] Site [address] [place] [address] [phone] Valarie Pierson MD [address] [place] [phone] Acute and chronic respiratory failure with hypoxia; [...] documented as of this encounter Care Teams Scarfing Machine Operator Relationship Specialty Start Date End Date Uday Sheehan [address] [place] [address] dr Donna [place], [place] [address] PCP - General Internal Medicine 03/27/24 documented as of this encounter
--- OUTSIDE RECORDS SUMMARY | 2024-11-07 12:18 | XMS_ITS | Encounter Summary ---
Author Organization [facility] Address [address] [place] [address] Care Team Providers Care Cokeman Name Role Phone Uday Sheehan MD Primary Care Provider [phone] Encounter Details Date Type Department Care Team (Late st Contact Info) Description 10/18/2024 Lab Requisition [facility] - Main Lab [address] [facility] [place] [address] Tabby Bledsoe MD [address] [facility] [address] [place] [address] Osteomyelitis, unspecified (CMS/HCC V24, CMS/HCC V28) Social [...] Procedure Name Priority Date/Time Associated Diagnosis Comments SEDIMENTATION RATE Routine 10/18/2024 7: 01 AM EDT Osteomyelitis, unspecified (CMS/HCC V24, CMS/HCC V28) COMPLETE BLOOD COUNT Routine 10/18/2024 7:01 AM EDT Osteomyelitis, unspecified (CMS/HCC V24, CMS/HCC V28) C-REACTIVE PROTEIN Routine 10/18/2024 7: 01 AM EDT Osteomyelitis, unspecified (CMS/HCC V24, CMS/HCC V28) documented in this encounter Results * (ABNORMAL) Sedimentation rate (10/18/2024 7:01 AM EDT) [facility] Sed Rate 58(H) 0 - 20 mm/hr LAB HEMETOLOGY METHOD 10/18/2024 10:16 AM EDT [facility] Blood Venous blood specimen / Unknown Venipuncture / Unknown 10/18/2024 7:01 AM EDT 10/18/2024 9:11 AM EDT Tabby Bledsoe MD LAB BLOOD ORDERABLES Fin al Result Performing Organization Address City/[facility]/ZIP Co de Phone Number [facility] [address] [place] [address], [place] [phone] * (ABNORMAL) C-reactive protein (10/18/2024 7:01 AM EDT) [facility] C-Reactive Protein 13.40(H) <=0.50 mg/dL LAB CHEMISTRY METHOD 10/18/2024 10:08 AM EDT [facility] Blood Venous blood specimen / Unknown Venipuncture / Unknown 10/18/2024 7:01 AM EDT 10/18/2024 9:11 AM EDT Tabby Bledsoe MD LAB BLOOD ORDERABLES Fin al Result Performing Organization Address City/[facility]/ZIP Co de Phone Number [facility] [address] [place] [address], [place] [phone] * (ABNORMAL) Complete blood count (10/18/2024 7:01 AM EDT) [facility] WBC 6.6 4.8 - 10.8 K/[facility] LAB HEMETOLOGY METHOD 10/18/2024 9:51 AM EDT [facility] RBC 2.40(L) 4.50 - 5.50 M/[facility] LAB HEMETOLOGY METHOD 10/18/2024 9:51 AM [facility] Hemoglobin 6.7(L) 13.5 - 17.5 g/dL LAB HEMETOLOGY METHOD 10/18/2024 9:51 AM [facility] Hematocrit 22.8(L) 42.0 - 54.0 % LAB HEMETOLOGY METHOD 10/18/2024 9:51 AM [facility] MCV 93.4 79.0 - 98.0 FL LAB HEMETOLOGY METHOD 10/18/2024 9:51 AM [facility] MCH 27.5 27.0 - 32.0 pcg LAB HEMETOLOGY METHOD 10/18/2024 9:51 AM [facility] MCHC 29.4(L) 32.0 - 37.0 g/dL LAB HEMETOLOGY METHOD 10/18/2024 9:51 AM [facility] RDW 16.7(H) 11.0 - 15.0 % LAB HEMETOLOGY METHOD 10/18/2024 9:51 AM [facility] Platelets 259 130 - 400 K/mcL LAB HEMETOLOGY METHOD 10/18/2024 9:51 AM [facility] MPV 9.2 7.0 - 11.0 FL LAB HEMETOLOGY METHOD 10/18/2024 9:51 AM [facility] NRBC 0.0 <1.0 % LAB HEMETOLOGY METHOD 10/18/2024 9:51 AM [facility] NRBC Absolute 0.00 <0.10 K/mcL LAB HEMETOLOGY METHOD 10/18/2024 9:51 AM [facility] Blood Venous blood specimen / Unknown Venipuncture / Unknown 10/18/2024 7:01 AM EDT 10/18/2024 9:11 AM EDT Tabby Bledsoe MD LAB BLOOD ORDERABLES Fin al Result [facility] [address] [place] [address], documented in this encounter Visit Diagnoses Diagnosis Osteomyelitis, unspecified (CMS/HCC V24, CMS/HCC V28) documented in this encounter Additional Health Concerns Infection Onset Date Last Indicated Resolved Time ESBL 06/22/2024 06/22/2024 documented as of this encounter Care Teams Cokeman Relationship Specialty Start Date End Date Uday Sheehan MD [address] [place] [address] Dr Dnona [place] PCP - General Devil Tender 12/19/16 documented as of this encounter
--- OUTSIDE RECORDS SUMMARY | 2024-11-07 12:18 | XMS_ITS | Encounter Summary ---
Author Organization [facility] Address [address] [place] [address] Care Team Providers Care Tool And Machine Maintainer Name Role Phone Uday Sheehan MD Primary Care Provider [phone] Encounter Details Date Type Department Care Team (Late st Contact Info) Description 08/28/2024 Lab Requisition [facility] - Main Lab [address] [place] [address] Tabby Bledsoe MD [address] [address] Anemia, unspecified Social History Tobacco Use Types [...] AM EST) WBC 6.4 4.8 - 10.8 K/[facility] LAB HEMETOLOGY METHOD 08/29/2024 11:12 AM EST [facility] RBC 2.50(L) 4.50 - 5.50 M/[facility] LAB HEMETOLOGY METHOD 08/29/2024 11:12 AM EST [facility] Hemoglobin 6.6(L) 13.5 - 17.5 g/dL LAB HEMETOLOGY METHOD 08/29/2024 11:12 AM [facility] Hematocrit 22.9(L) 42.0 - 54.0 % LAB HEMETOLOGY METHOD 08/29/2024 11:12 AM [facility] MCV 93.5 79.0 - 98.0 FL LAB HEMETOLOGY METHOD 08/29/2024 11:12 AM [facility] MCH 26.9(L) 27.0 - 32.0 pcg LAB HEMETOLOGY METHOD 08/29/2024 11:12 AM [facility] MCHC 28.8(L) 32.0 - 37.0 g/dL LAB HEMETOLOGY METHOD 08/29/2024 11:12 AM [facility] RDW 18.0(H) 11.0 - 15.0 % LAB HEMETOLOGY METHOD 08/29/2024 11:12 AM [facility] Platelets 292 130 - 400 K/mcL LAB HEMETOLOGY METHOD 08/29/2024 11:12 AM [facility] MPV 9.3 7.0 - 11.0 FL LAB HEMETOLOGY METHOD 08/29/2024 11:12 AM [facility] NRBC 0.0 <1.0 % LAB HEMETOLOGY METHOD 08/29/2024 11:12 AM [facility] NRBC Absolute 0.00 <0.10 K/mcL LAB HEMETOLOGY METHOD 08/29/2024 11:12 AM [facility] Blood Venous blood specimen / Unknown Venipuncture / Unknown 08/29/2024 5:17 AM EST 08/29/2024 10:46 AM EST us Tabby Bledsoe MD LAB BLOOD ORDERABLES Fin al Result [facility] [address] [place] [address], documented in this encounter Visit Diagnoses Diagnosis Anemia, unspecified documented in this encounter Additional Health Concerns Infection Onset Date Last Indicated Resolved Time ESBL 06/22/2024 06/22/2024 documented as of this encounter Care Teams Tool And Machine Maintainer Relationship Specialty Start Date End Date Uday Sheehan MD [address] [place] [address] Dr [place] PCP - General Conveyor Man 12/19/16 documented as of this encounter
--- OUTSIDE RECORDS SUMMARY | 2024-11-07 12:18 | XMS_ITS | Encounter Summary ---
Author Organization [facility] Address [address] [place] [address] Phone Care Team Providers Care Tubular Riveter Name Role Phone Uday Sheehan MD Primary Care Provider [phone] Encounter Details Date Type Department Care Team (Late st Contact Info) Description 04/11/2022 Documentation Only [facility] [address] [place] [address] Adi Jaeger MD [address] [place] [address] [place] [address] Social History Tobacco Use Types [...] on filedocumented in this encounter Care Teams Tubular Riveter Relationship Specialty Start Date End Date Uday Sheehan MD [address] [place] [address] [address] [place] PCP - General 05/14/19 documented as of this encounter
--- OUTSIDE RECORDS SUMMARY | 2024-11-07 12:18 | XMS_ITS | Encounter Summary ---
Author Organization [facility] Address [address] [place] [address] Care Team Providers Care Platen Drier Operator Name Role Phone Uday Sheehan Primary Care Provider [phone] Encounter Details Date Type Department Care Team (Late st Contact Info) Description 03/17/2024 Lab Requisition [facility] Lab [address] [place] [phone] No diagnosis Social History Tobacco Use Types [...] documented as of this encounter Care Teams Platen Drier Operator Relationship Specialty Start Date End Date Uday Sheehan [address] [place] [address] dr Donna [place] [address] PCP - General Internal Medicine 03/27/24 documented as of this encounter
--- OUTSIDE RECORDS SUMMARY | 2024-11-07 12:18 | XMS_ITS | Encounter Summary ---
Author Organization [facility] Address [address] [place] [address] Care Team Providers Care K 9 Police Officer Name Role Phone Uday Sheehan MD Primary Care Provider [phone] Encounter Details Date Type Department Care Team (Late st Contact Info) Description 08/18/[address] [facility] - Main Lab [address] [place] [address] Tabby Bledsoe MD [address] [address] Bacteremia Social History Tobacco Use Types Packs/Day [...] LAB CHEMISTRY METHOD 08/19/2024 3:13 PM EST [facility] Potassium 4.0 3.5 - 5.5 mmol/L LAB CHEMISTRY METHOD 08/19/2024 3:13 PM [facility] LAB Chloride 111(H) 96 - 110 mmol/L LAB CHEMISTRY METHOD 08/19/2024 3:13 PM [facility] LAB CO2 25 21 - 32 mmol/L LAB CHEMISTRY METHOD 08/19/2024 3:13 PM [facility] LAB Anion Gap 9 3 - 11 LAB CHEMISTRY METHOD 08/19/2024 3:13 PM [facility] LAB Glucose 90 70 - 100 mg/dL LAB CHEMISTRY METHOD 08/19/2024 3:13 PM [facility] LAB BUN 23 5 - 25 mg/dL LAB CHEMISTRY METHOD 08/19/2024 3:13 PM [facility] LAB Creatinine 1.46(H) 0.70 - 1.30 mg/dL LAB CHEMISTRY METHOD 08/19/2024 3:13 PM [facility] LAB eGFR 47(L) >=60 mL/min/1. 73m2 LAB CHEMISTRY METHOD 08/19/2024 3:13 PM [facility] LAB Comment:Calculation based on the??Chronic Kidney Disease Epidemiology Collaboration (CKD-EPI) equation refit??without adjustment for race. BUN/Creatinine Ratio 15.8 LAB CHEMISTRY METHOD 08/19/2024 3:13 PM [facility] LAB Calcium 8.3(L) 8.5 - 10.5 mg/dL LAB CHEMISTRY METHOD 08/19/2024 3:13 PM [facility] LAB AST (SGOT) 19 10 - 42 unit/L LAB CHEMISTRY METHOD 08/19/2024 3:13 PM [facility] LAB ALT (SGPT) 12 10 - 60 unit/L LAB CHEMISTRY METHOD 08/19/2024 3:13 PM [facility] LAB Alkaline Phosphatase 88 42 - 121 unit/L LAB CHEMISTRY METHOD 08/19/2024 3:13 PM [facility] LAB Total Protein 5.5(L) 6.0 - 8.0 g/dL LAB CHEMISTRY METHOD 08/19/2024 3:13 PM EST [facility] LAB Albumin 1.5(L) 3.2 - 5.0 g/dL LAB CHEMISTRY METHOD 08/19/2024 3:13 PM [facility] LAB Total Bilirubin 0.3 0.0 - 1.4 mg/dL LAB CHEMISTRY METHOD 08/19/2024 3:13 PM [facility] LAB Blood Venous blood specimen / Unknown Venipuncture / Unknown 08/19/2024 8:46 AM EST 08/19/2024 12:22 PM EST us Tabby Bledsoe MD LAB BLOOD ORDERABLES Fin al Result [facility] LAB [address] [place] [address], [place] [phone] * (ABNORMAL) Complete blood count (08/19/2024 8:46 AM EST) WBC 6.3 4.8 - 10.8 K/mcL LAB HEMETOLOGY METHOD 08/19/2024 1:38 PM [facility] LAB RBC 2.80(L) 4.50 - 5.50 M/mcL LAB HEMETOLOGY METHOD 08/19/2024 1:38 PM [facility] LAB Hemoglobin 7.5(L) 13.5 - 17.5 g/dL LAB HEMETOLOGY METHOD 08/19/2024 1:38 PM [facility] LAB Hematocrit 25.6(L) 42.0 - 54.0 % LAB HEMETOLOGY METHOD 08/19/2024 1:38 PM [facility] LAB MCV 92.4 79.0 - 98.0 FL LAB HEMETOLOGY METHOD 08/19/2024 1:38 PM [facility] LAB MCH 27.1 27.0 - 32.0 pcg LAB HEMETOLOGY METHOD 08/19/2024 1:38 PM [facility] LAB MCHC 29.3(L) 32.0 - 37.0 g/dL LAB HEMETOLOGY METHOD 08/19/2024 1:38 PM EST [facility] LAB RDW 19.2(H) 11.0 - 15.0 % LAB HEMETOLOGY METHOD 08/19/2024 1:38 PM [facility] LAB Platelets 289 130 - 400 K/mcL LAB HEMETOLOGY METHOD 08/19/2024 1:38 PM [facility] LAB MPV 9.1 7.0 - 11.0 FL LAB HEMETOLOGY METHOD 08/19/2024 1:38 PM [facility] LAB NRBC 0.0 <1.0 % LAB HEMETOLOGY METHOD 08/19/2024 1:38 PM [facility] LAB NRBC Absolute 0.00 <0.10 K/mcL LAB HEMETOLOGY METHOD 08/19/2024 1:38 PM [facility] LAB Blood Venous blood specimen / Unknown Venipuncture / Unknown 08/19/2024 8:46 AM EST 08/19/2024 12:22 PM EST Tabby Bledsoe MD LAB BLOOD ORDERABLES Fin al Result [facility] [address] [place] [address], documented in this encounter Visit Diagnoses Diagnosis Bacteremia documented in this encounter Additional Health Concerns Infection Onset Date Last Indicated Resolved Time ESBL 06/22/2024 06/22/2024 documented as of this encounter Care Teams K 9 Police Officer Relationship Specialty Start Date End Date Uday Sheehan MD [address] [place] [address] Dr Donna [place] PCP - General Preprint Analyst 12/19/16 documented as of this encounter
--- OUTSIDE RECORDS SUMMARY | 2024-11-07 12:18 | XMS_ITS | Encounter Summary ---
Author Organization [facility] Address [address] [place] [address] Phone Care Team Providers Care Eeg Technician Name Role Phone Uday Sheehan MD Primary Care Provider [phone] Encounter Details Date Type Department Care Team (Late st Contact Info) Description 10/11/2021 Documentation Only [facility], [address] [address] Adi Jaeger MD [address] [facility] [place] [address] Social History Tobacco Use Types [...] on filedocumented in this encounter Care Teams Eeg Technician Relationship Specialty Start Date End Date Uday Sheehan MD [address] [facility] [place] PCP - General 05/14/19 documented as of this encounter
--- OUTSIDE RECORDS SUMMARY | 2024-11-07 12:18 | XMS_ITS | Encounter Summary ---
Author Organization [facility] Address [address] [place] [address] Care Team Providers Care Economic Geographer Name Role Phone Uday Sheehan MD Primary Care Provider [phone] Encounter Details Date Type Department Care Team (Late st Contact Info) Description 11/01/[address] [facility] - Main Lab [address] [place] [address] Tabby Bledsoe MD [address] [address] Bacteremia Social History Tobacco Use Types Packs/Day [...] Associated Diagnosis Comments COMPLETE BLOOD COUNT Routine 11/04/2024 9:52 AM EDT Bacteremia BASIC METABOLIC PANEL Routine 11/04/2024 9:52 AM EDT Bacteremia documented in this encounter Results * (ABNORMAL) Basic metabolic panel (11/04/2024 9:52 AM EDT) Sodium 142 133 - 145 mmol/L LAB CHEMISTRY METHOD 11/04/2024 7:30 PM EDT [facility] LAB Potassium 3.9 3.5 - 5.5 mmol/L LAB CHEMISTRY METHOD 11/04/2024 7:30 PM [facility] LAB Chloride 110 96 - 110 mmol/L LAB CHEMISTRY METHOD 11/04/2024 7:30 PM [facility] CO2 25 21 - 32 mmol/L LAB CHEMISTRY METHOD 11/04/2024 7:30 PM [facility] Anion Gap 7 3 - 11 LAB CHEMISTRY METHOD 11/04/2024 7:30 PM [facility] Glucose 113(H) 70 - 100 mg/dL LAB CHEMISTRY METHOD 11/04/2024 7:30 PM [facility] BUN 30(H) 5 - 25 mg/dL LAB CHEMISTRY METHOD 11/04/2024 7:30 PM [facility] Creatinine 1.06 0.70 - 1.30 mg/dL LAB CHEMISTRY METHOD 11/04/2024 7:30 PM [facility] LAB eGFR 69 >=60 mL/min/1. 73m2 LAB CHEMISTRY METHOD 11/04/2024 7:30 PM [facility] LAB Comment:Calculation based on the??Chronic Kidney Disease Epidemiology Collaboration (CKD-EPI) equation refit??without adjustment for race. BUN/Creatinine Ratio 28.3 LAB CHEMISTRY METHOD 11/04/2024 7:30 PM [facility] Calcium 7.6(L) 8.5 - 10.5 mg/dL LAB CHEMISTRY METHOD 11/04/2024 7:30 PM [facility] Blood Venous blood specimen / Unknown Venipuncture / Unknown 11/04/2024 9:52 AM EDT 11/04/2024 11:40 AM EDT us Tabby Bledsoe MD LAB BLOOD ORDERABLES Fin al Result [facility] [address] [place] [address], * (ABNORMAL) Complete blood count (11/04/2024 9:52 AM EDT) [facility] WBC 5.6 4.8 - 10.8 K/mcL LAB HEMETOLOGY METHOD 11/04/2024 1:17 PM [facility] RBC 2.40(L) 4.50 - 5.50 M/mcL LAB HEMETOLOGY METHOD 11/04/2024 1:17 PM [facility] Hemoglobin 6.5(L) 13.5 - 17.5 g/dL LAB HEMETOLOGY METHOD 11/04/2024 1:17 PM [facility] Hematocrit 21.8(L) 42.0 - 54.0 % LAB HEMETOLOGY METHOD 11/04/2024 1:17 PM [facility] LAB MCV 92.0 79.0 - 98.0 FL LAB HEMETOLOGY METHOD 11/04/2024 1:17 PM [facility] MCH 27.4 27.0 - 32.0 pcg LAB HEMETOLOGY METHOD 11/04/2024 1:17 PM [facility] MCHC 29.8(L) 32.0 - 37.0 g/dL LAB HEMETOLOGY METHOD 11/04/2024 1:17 PM [facility] RDW 17.2(H) 11.0 - 15.0 % LAB HEMETOLOGY METHOD 11/04/2024 1:17 PM [facility] Platelets 224 130 - 400 K/mcL LAB HEMETOLOGY METHOD 11/04/2024 1:17 PM [facility] MPV 9.8 7.0 - 11.0 FL LAB HEMETOLOGY METHOD 11/04/2024 1:17 PM [facility] NRBC 0.0 <1.0 % LAB HEMETOLOGY METHOD 11/04/2024 1:17 PM [facility] NRBC Absolute 0.00 <0.10 K/mcL LAB HEMETOLOGY METHOD 11/04/2024 1:17 PM EDT [facility] Blood Venous blood specimen / Unknown Venipuncture / Unknown 11/04/2024 9:52 AM EDT 11/04/2024 11:23 AM EDT us Tabby Bledsoe MD LAB BLOOD ORDERABLES Fin al Result [facility] [address] [place] [address], documented in this encounter Visit Diagnoses Diagnosis Bacteremia documented in this encounter Additional Health Concerns Infection Onset Date Last Indicated Resolved Time ESBL 06/22/2024 06/22/2024 documented as of this encounter Care Teams Economic Geographer Relationship Specialty Start Date End Date Uday Sheehan MD [address] [place] [address] Dr Donna [place] PCP - General De Alcholizer 12/19/16 documented as of this encounter
--- OUTSIDE RECORDS SUMMARY | 2024-11-07 12:18 | XMS_ITS | Encounter Summary ---
Author Organization [facility] Address [address] [place] [address] Care Team Providers Care Chief Engineer Research Name Role Phone Uday Sheehan MD Primary Care Provider [phone] Encounter Details Date Type Department Care Team (Late st Contact Info) Description 08/24/2024 Lab Requisition [facility] - Main Lab [address] [facility] [place] [address] Tabby Bledsoe MD [address] [facility] [address] [place], [place] [id number] Bacteremia; Heart failure, unspecified (CMS/HCC V24, CMS/HCC V28); Pressure ulcer of unspecified site, unspecified [...] * (ABNORMAL) Prealbumin (08/26/2024 7:46 AM EST) Pathologist [facility] Prealbumin 9(L) 18 - 45 mg/dL LAB CHEMISTRY METHOD 08/26/2024 11:01 AM [facility] Blood Venous blood specimen / Unknown Venipuncture / Unknown 08/26/2024 7:46 AM EST 08/26/2024 10:11 AM EST us Tabby Bledsoe MD LAB BLOOD ORDERABLES Fin al Result [facility] [address] [place] [address], [place] [phone] * (ABNORMAL) Comprehensive metabolic panel (08/26/2024 7:46 AM EST) [facility] Sodium 139 133 - 145 mmol/L LAB CHEMISTRY METHOD 08/26/2024 11:03 AM [facility] Potassium 4.3 3.5 - 5.5 mmol/L LAB CHEMISTRY METHOD 08/26/2024 11:03 AM [facility] Chloride 105 96 - 110 mmol/L LAB CHEMISTRY METHOD 08/26/2024 11:03 AM [facility] CO2 29 21 - 32 mmol/L LAB CHEMISTRY METHOD 08/26/2024 11:03 AM [facility] Anion Gap 5 3 - 11 LAB CHEMISTRY METHOD 08/26/2024 11:03 AM [facility] Glucose 81 70 - 100 mg/dL LAB CHEMISTRY METHOD 08/26/2024 11:03 AM [facility] BUN 24 5 - 25 mg/dL LAB CHEMISTRY METHOD 08/26/2024 11:03 AM [facility] Creatinine 1.43(H) 0.70 - 1.30 mg/dL LAB CHEMISTRY METHOD 08/26/2024 11:03 AM [facility] eGFR 48(L) >=60 mL/min/1. 73m2 LAB CHEMISTRY METHOD 08/26/2024 11:03 AM [facility] Comment:Calculation based on the??Chronic Kidney Disease Epidemiology Collaboration (CKD-EPI) equation refit??without adjustment for race. BUN/Creatinine Ratio 16.8 LAB CHEMISTRY METHOD 08/26/2024 11:03 AM [facility] Calcium 8.1(L) 8.5 - 10.5 mg/dL LAB CHEMISTRY METHOD 08/26/2024 11:03 AM [facility] AST (SGOT) 23 10 - 42 unit/L LAB CHEMISTRY METHOD 08/26/2024 11:03 AM [facility] ALT (SGPT) 18 10 - 60 unit/L LAB CHEMISTRY METHOD 08/26/2024 11:03 AM [facility] Alkaline Phosphatase 88 42 - 121 unit/L LAB CHEMISTRY METHOD 08/26/2024 11:03 AM [facility] Total Protein 5.4(L) 6.0 - 8.0 g/dL LAB CHEMISTRY METHOD 08/26/2024 11:03 AM [facility] Albumin 1.3(L) 3.2 - 5.0 g/dL LAB CHEMISTRY METHOD 08/26/2024 11:03 AM [facility] Total Bilirubin 0.4 0.0 - 1.4 mg/dL LAB CHEMISTRY METHOD 08/26/2024 11:03 AM [facility] Blood Venous blood specimen / Unknown Venipuncture / Unknown 08/26/2024 7:46 AM EST 08/26/2024 10:11 AM EST us Tabby Bledsoe MD LAB BLOOD ORDERABLES Fin al Result [facility] [address] [place] [address], * (ABNORMAL) Complete blood count (08/26/2024 7:46 AM EST) [facility] WBC 5.9 4.8 - 10.8 K/mcL LAB HEMETOLOGY METHOD 08/26/2024 10:37 AM [facility] RBC 2.60(L) 4.50 - 5.50 M/mcL LAB HEMETOLOGY METHOD 08/26/2024 10:37 AM [facility] Hemoglobin 7.0(L) 13.5 - 17.5 g/dL LAB HEMETOLOGY METHOD 08/26/2024 10:37 AM [facility] Hematocrit 23.5(L) 42.0 - 54.0 % LAB HEMETOLOGY METHOD 08/26/2024 10:37 AM [facility] MCV 91.1 79.0 - 98.0 FL LAB HEMETOLOGY METHOD 08/26/2024 10:37 AM [facility] MCH 27.1 27.0 - 32.0 pcg LAB HEMETOLOGY METHOD 08/26/2024 10:37 AM [facility] MCHC 29.8(L) 32.0 - 37.0 g/dL LAB HEMETOLOGY METHOD 08/26/2024 10:37 AM [facility] RDW 18.1(H) 11.0 - 15.0 % LAB HEMETOLOGY METHOD 08/26/2024 10:37 AM [facility] Platelets 309 130 - 400 K/mcL LAB HEMETOLOGY METHOD 08/26/2024 10:37 AM [facility] MPV 9.2 7.0 - 11.0 FL LAB HEMETOLOGY METHOD 08/26/2024 10:37 AM [facility] NRBC 0.0 <1.0 % LAB HEMETOLOGY METHOD 08/26/2024 10:37 AM EST [facility] NRBC Absolute 0.00 <0.10 K/mcL LAB HEMETOLOGY METHOD 08/26/2024 10:37 AM EST [facility] Blood Venous blood specimen / Unknown Venipuncture / Unknown 08/26/2024 7:46 AM EST 08/26/2024 10:11 AM EST us Tabby Bledsoe MD LAB BLOOD ORDERABLES Fin al Result [facility] [address] [place] [address], documented in this encounter Visit Diagnoses Diagnosis Bacteremia Heart failure, unspecified (CMS/HCC V24, CMS/HCC V28) Heart failure, unspecified Pressure ulcer of unspecified site, unspecified stage documented in this encounter Additional Health Concerns Infection Onset Date Last Indicated Resolved Time ESBL 06/22/2024 06/22/2024 documented as of this encounter Care Teams Chief Engineer Research Relationship Specialty Start Date End Date Uday Sheehan MD [address] [place] [address] Dr Donna [place] PCP - General Driving Teacher 12/19/16 documented as of this encounter
--- OUTSIDE RECORDS SUMMARY | 2024-11-07 12:18 | XMS_ITS | Encounter Summary ---
Author Organization [facility] Address [address] [place] [address] Care Team Providers Care Spun Paste Machine Operator Name Role Phone Uday Sheehan Primary Care Provider [phone] Encounter Details Date Type Department Care Team (Late st Contact Info) Description 03/15/2024 Lab Requisition [facility] Lab [address] [place] [address] Lidia Barry, CB [address] [place] [address] Acute and chronic respiratory failure with hypoxia; [...] - 10.8 10*3/uL 03/15/2024 9:07 AM EDT [facility] RBC 3.05(L) 4.70 - 6.10 10*6/uL 03/15/2024 9:07 AM EDT [facility] Hemoglobin 8.5(L) 13.7 - 16.5 g/dL 03/15/2024 9:07 AM EDT [facility] Hematocrit 26.2(L) 40.5 - 48.5 % 03/15/2024 9:07 AM EDT [facility] MCV 85.9 80.0 - 94.0 fL 03/15/2024 9:07 AM EDT [facility] MCH 27.9 26.0 - 34.0 pg 03/15/2024 9:07 AM EDT [facility] MCHC 32.4 31.0 - 36.0 g/dL 03/15/2024 9:07 AM EDT [facility] RDW 15.2(H) 12.0 - 15.0 % 03/15/2024 9:07 AM EDT [facility] RDW Standard Deviation 47.7(H) 35.1 - 43.9 fL 03/15/2024 9:07 AM EDT [facility] Platelets 149 140 - 440 10*3/uL 03/15/2024 9:07 AM EDT [facility] MPV 10.3 9.4 - 12.4 fL 03/15/2024 9:07 AM EDT [facility] Neutrophil % 59.2 50.0 - 75.0 % 03/15/2024 9:07 AM EDT [facility] Immature Grans % 0.4 0.0 - 0.9 % 03/15/2024 9:07 AM EDT [facility] Lymphocyte % 24.8 20.0 - 44.0 % 03/15/2024 9:07 AM EDT [facility] Monocyte % 10.9 0.0 - 14.0 % 03/15/2024 9:07 AM EDT [facility] Eosinophil % 4.1 0.0 - 5.0 % 03/15/2024 9:07 AM EDT [facility] Basophil % 0.6 0.0 - 2.0 % 03/15/2024 9:07 AM EDT [facility] Neutrophil # 4.23 1.80 - 7.70 10*3/uL 03/15/2024 9:07 AM EDT [facility] Immature Grans # 0.03 0.00 - 0.03 10*3/uL 03/15/2024 9:07 AM EDT [facility] Lymphocyte # 1.80 1.00 - 4.75 10*3/uL 03/15/2024 9:07 AM EDT [facility] Monocyte # 0.80 0.00 - 6.00 10*3/uL 03/15/2024 9:07 AM EDT [facility] Eosinophil # 0.30 0.00 - 0.80 10*3/uL 03/15/2024 9:07 AM EDT [facility] Basophil # <0.03 0.00 - 0.20 10*3/uL 03/15/2024 9:07 AM EDT [facility] nRBC % 0.0 0 - 0 /100 WBCs 03/15/2024 9:07 AM EDT [facility] nRBC # <0.01 0.00 - 0.13 10*3/uL 03/15/2024 9:07 AM EDT [facility] Blood Structure of peripheral vein / Unknown 03/15/2024 8:31 AM EDT 03/15/2024 8:31 AM EDT us [facility] BLOOD ORDERABLES Final R esult Performing Organization Address City/[facility]/ZIP Co de Phone Number [facility] [address] [address], [place] [phone] * Ammonia (03/15/2024 8:31 AM EDT) Ammonia 17 16 - 60 umol/L 03/15/2024 8:55 AM EDT [facility] Blood Structure of peripheral vein / Unknown 03/15/2024 8:31 AM EDT 03/15/2024 8:31 AM EDT us [facility] BLOOD ORDERABLES Final R esult Performing Organization Address City/[facility]/ZIP Co de Phone Number [facility] [address] [address], [place] [phone] * (ABNORMAL) Comprehensive Metabolic Panel (03/15/2024 8:31 AM EDT) NA 137 136 - 145 mmol/L 03/15/2024 9:35 AM EDT [facility] K 3.7 3.5 - 5.1 mmol/L 03/15/2024 9:35 AM EDT [facility] Cl 98 98 - 109 mmol/L 03/15/2024 9:35 AM EDT [facility] CO2 31 23 - 32 mmol/L 03/15/2024 9:35 AM EDT [facility] Anion Gap 12 >=0 03/15/2024 9:35 AM EDT [facility] Glucose 108(H) 60 - 99 mg/dL 03/15/2024 9:35 AM EDT [facility] Creatinine 1.07 0.50 - 1.12 mg/dL 03/15/2024 9:35 AM EDT [facility] Calcium 9.0 8.4 - 10.4 mg/dL 03/15/2024 9:35 AM EDT [facility] Total Protein 5.8(L) 6.6 - 8.7 g/dL 03/15/2024 9:35 AM EDT [facility] Albumin 3.2(L) 3.5 - 5.0 g/dL 03/15/2024 9:35 AM EDT [facility] Bilirubin, Total 0.4 0.2 - 1.2 mg/dL 03/15/2024 9:35 AM EDT [facility] Alkaline Phosphatase 112 40 - 129 U/L 03/15/2024 9:35 AM EDT [facility] AST 28 0 - 40 U/L 03/15/2024 9:35 AM EDT [facility] Comment:[place] REVIEWED ALT 35 <=41 U/L 03/15/2024 9:35 AM EDT [facility] BUN 16 8 - 23 mg/dL 03/15/2024 9:35 AM EDT [facility] eGFR 68 >=60 mL/min/1. 73m2 03/15/2024 9:35 AM EDT [facility] [...] - 4.2 g/dL 03/15/2024 9:35 AM EDT [facility] A/G Ratio 1.2(L) 1.5 - 3.0 03/15/2024 9:35 AM EDT [facility] Blood Structure of peripheral vein / Unknown 03/15/2024 8:31 AM EDT 03/15/2024 8:31 AM EDT us Lidia [place] [employer] LAB BLOOD ORDERABLES Final R esult [facility] [address] [place] [address], documented in this encounter Visit Diagnoses Diagnosis [...] documented as of this encounter Care Teams Spun Paste Machine Operator Relationship Specialty Start Date End Date Uday Sheehan [address] [place] [address] [place] [address] PCP - General Internal Medicine 03/27/24 documented as of this encounter
--- OUTSIDE RECORDS SUMMARY | 2024-11-07 12:18 | XMS_ITS | Encounter Summary ---
Author Organization [facility] Address [address] [place] [address] Care Team Providers Care Weather Anchor Name Role Phone Uday Sheehan Primary Care Provider [phone] Encounter Details Date Type Department Care Team (Late st Contact Info) Description 03/08/2024 Lab Requisition [facility] Lab [address] [place] [address] Lidia Barry, CB [address] [place] [address] Acute respiratory failure with hypoxia; No diagnosis [...] SHIGA TOXIN ANTIGENS (LAB ONLY REFLEX) - [facility] Routine 03/08/2024 9:28 AM EDT Acute respiratory [...] Shiga Toxin Antigens (Lab only Reflex) - [facility] (03/08/2024 9:28 AM EDT) [facility] Toxin 1 Negative Negative [facility] 03/09/2024 9:37 AM EDT [facility] Toxin 2 Negative Negative [facility] 03/09/2024 9:37 AM EDT [facility] Stool Rectal route / Unknown Non-Blood Collection / Unknown 03/08/2024 9:28 AM EDT 03/08/2024 9:28 AM EDT us Lidia Barry [facility] LAB MICROBIOLOGY - GENERAL O RDERABLES Final Result Performing Organization Address [facility] Co de Phone Number [facility] [address] [place] [address] [address] [place] [address], [place] [phone] * Stool Culture (03/08/2024 9:28 AM EDT) Pathologist [facility] Stool Culture Normal stool nohemi: no E. coli O157, Salmonella, Shigella, or Campylobacter isolated [facility] 03/11/2024 8:47 AM EDT [facility] Stool Rectal route / Unknown Non-Blood Collection / Unknown 03/08/2024 9:28 AM EDT 03/08/2024 9:28 AM EDT us Lidia Barry [facility] LAB MICROBIOLOGY - GENERAL O RDERABLES Final Result [facility] [address] [facility] [address] [place] [address], * (ABNORMAL) CBC Auto Differential (03/08/2024 9:28 AM EDT) WBC 9.4 4.8 - 10.8 10*3/uL 03/08/2024 9:58 AM EDT [facility] RBC 3.27(L) 4.70 - 6.10 10*6/uL 03/08/2024 9:58 AM EDT [facility] Hemoglobin 9.1(L) 13.7 - 16.5 g/dL 03/08/2024 9:58 AM EDT [facility] Hematocrit 28.1(L) 40.5 - 48.5 % 03/08/2024 9:58 AM EDT [facility] MCV 85.9 80.0 - 94.0 fL 03/08/2024 9:58 AM EDT [facility] MCH 27.8 26.0 - 34.0 pg 03/08/2024 9:58 AM EDT [facility] MCHC 32.4 31.0 - 36.0 g/dL 03/08/2024 9:58 AM EDT [facility] RDW 15.4(H) 12.0 - 15.0 % 03/08/2024 9:58 AM EDT [facility] RDW Standard Deviation 48.1(H) 35.1 - 43.9 fL 03/08/2024 9:58 AM EDT [facility] Platelets 144 140 - 440 10*3/uL 03/08/2024 9:58 AM EDT [facility] MPV 10.9 9.4 - 12.4 fL 03/08/2024 9:58 AM EDT [facility] Neutrophil % 58.0 50.0 - 75.0 % 03/08/2024 9:58 AM EDT [facility] Immature Grans % 0.6 0.0 - 0.9 % 03/08/2024 9:58 AM EDT [facility] Lymphocyte % 26.8 20.0 - 44.0 % 03/08/2024 9:58 AM EDT [facility] Monocyte % 8.6 0.0 - 14.0 % 03/08/2024 9:58 AM EDT [facility] Eosinophil % 5.7(H) 0.0 - 5.0 % 03/08/2024 9:58 AM EDT [facility] Basophil % 0.3 0.0 - 2.0 % 03/08/2024 9:58 AM EDT [facility] Neutrophil # 5.44 1.80 - 7.70 10*3/uL 03/08/2024 9:58 AM EDT [facility] Immature Grans # 0.06(H) 0.00 - 0.03 10*3/uL 03/08/2024 9:58 AM EDT [facility] Lymphocyte # 2.50 1.00 - 4.75 10*3/uL 03/08/2024 9:58 AM EDT [facility] Monocyte # 0.80 0.00 - 6.00 10*3/uL 03/08/2024 9:58 AM EDT [facility] Eosinophil # 0.50 0.00 - 0.80 10*3/uL 03/08/2024 9:58 AM EDT [facility] Basophil # <0.03 0.00 - 0.20 10*3/uL 03/08/2024 9:58 AM EDT [facility] nRBC % 0.0 0 - 0 /100 WBCs 03/08/2024 9:58 AM EDT [facility] nRBC # <0.01 0.00 - 0.13 10*3/uL 03/08/2024 9:58 AM EDT [facility] Blood Structure of peripheral vein / Unknown Venipuncture / Unknown 03/08/2024 9:28 AM EDT 03/08/2024 9:28 AM EDT us Lidia Barry NP LAB BLOOD ORDERABLES Final R esult Performing Organization Address City/State/[facility] Co de Phone Number [facility] [address] [address], [place] [phone] * Magnesium (03/08/2024 9:28 AM EDT) MG 1.8 1.5 - 2.5 mg/dL 03/08/2024 10:10 AM EDT [facility] Blood Structure of peripheral vein / Unknown Venipuncture / Unknown 03/08/2024 9:28 AM EDT 03/08/2024 9:28 AM EDT Lidia Barry [employer] [facility] LAB BLOOD ORDERABLES Final R esult Performing Organization Address [facility] Co de Phone Number [facility] [address] [address], [place] [phone] * (ABNORMAL) Comprehensive Metabolic Panel (03/08/2024 9:28 AM EDT) NA 138 136 - 145 mmol/L 03/08/2024 10:10 AM EDT [facility] K 3.8 3.5 - 5.1 mmol/L 03/08/2024 10:10 AM EDT [facility] Cl 104 98 - 109 mmol/L 03/08/2024 10:10 AM EDT [facility] CO2 23 23 - 32 mmol/L 03/08/2024 10:10 AM EDT [facility] Anion Gap 15 >=0 03/08/2024 10:10 AM EDT [facility] Glucose 107(H) 60 - 99 mg/dL 03/08/2024 10:10 AM EDT [facility] Creatinine 1.20(H) 0.50 - 1.12 mg/dL 03/08/2024 10:10 AM EDT [facility] Calcium 9.1 8.4 - 10.4 mg/dL 03/08/2024 10:10 AM EDT [facility] Total Protein 6.5(L) 6.6 - 8.7 g/dL 03/08/2024 10:10 AM EDT [facility] Albumin 3.2(L) 3.5 - 5.0 g/dL 03/08/2024 10:10 AM EDT [facility] Bilirubin, Total 0.5 0.2 - 1.2 mg/dL 03/08/2024 10:10 AM EDT [facility] Alkaline Phosphatase 111 40 - 129 U/L 03/08/2024 10:10 AM EDT [facility] AST 29 0 - 40 U/L 03/08/2024 10:10 AM EDT [facility] ALT 34 <=41 U/L 03/08/2024 10:10 AM EDT [facility] BUN 27(H) 8 - 23 mg/dL 03/08/2024 10:10 AM EDT [facility] eGFR 60 >=60 mL/min/1. 73m2 03/08/2024 10:10 AM EDT [facility] Comment:The estimated glomer ular filtration [...] - 4.2 g/dL 03/08/2024 10:10 AM EDT [facility] A/G Ratio 1.0(L) 1.5 - 3.0 03/08/2024 10:10 AM EDT [facility] Blood Structure of peripheral vein / Unknown Venipuncture / Unknown 03/08/2024 9:28 AM EDT 03/08/2024 9:28 AM EDT us Lidia [place] [employer] [facility] [facility] LAB BLOOD ORDERABLES Final R esult [facility] [address] [place] [address], documented in this encounter Visit Diagnoses Diagnosis [...] documented as of this encounter Care Teams Weather Anchor Relationship Specialty Start Date End Date Uday Sheehan [address] [place] [address] [place] [address] PCP - General Internal Medicine 03/27/24 documented as of this encounter
--- OUTSIDE RECORDS SUMMARY | 2024-11-07 12:18 | XMS_ITS | Continuity of Care Document ---
Author Organization [facility] [address] [facility] [address] [place] [address] Phone [phone] Social History Type Date Description Comments Sex Unknown Medical Devices Description No Information Available Encounters Description No Information Available Assessments Description No Information Available Plan of Treatment No Information Available Functional Status Description No Information Available Mental Status Description No Information Available Referrals Description No Information Available
--- OUTSIDE RECORDS SUMMARY | 2024-11-07 12:18 | XMS_ITS | Encounter Summary ---
Author Organization [facility] Address [address] [place] [address] Care Team Providers Care Hand Binder Cutter Name Role Phone Uday Sheehan Primary Care Provider [phone] Encounter Details Date Type Department Care Team (Late st Contact Info) Description 03/11/2024 Lab Requisition [facility] Lab [address] [place] [address] Lidia Barry, CB [address] [place] [address] Acute and chronic respiratory failure with hypoxia; [...] encounter Procedures * Due to [place] state law, this organization might not be [...] encounter Results * Due to [place] state law, this organization might not be sharing negative HIV tests. * Blood Culture (03/11/2024 1:30 PM EDT) Blood Culture No growth after 5 days 03/16/2024 3:06 PM EDT [facility] Blood Structure of peripheral vein / Unknown Venipuncture / Unknown 03/11/2024 1:30 PM EDT 03/11/2024 2:34 PM EDT us Frazierkevin Barry LAB MICROBIOLOGY - GENERAL O RDERABLES Final Result Performing Organization Address City/[facility]/ZIP Co de Phone Number [facility] [address] [address], [place] [phone] * Blood Culture (03/11/2024 1:30 PM EDT) Blood Culture No growth after 5 days 03/16/2024 3:06 PM EDT [facility] Blood Structure of peripheral vein / Unknown Venipuncture / Unknown 03/11/2024 1:30 PM EDT 03/11/2024 2:34 PM EDT [facility] MICROBIOLOGY - GENERAL O RDERABLES Final Result Performing Organization Address [facility]/ZIP Co de Phone Number [facility] [address] [address], [place] [phone] * (ABNORMAL) Microscopic Urinalysis Only (03/11/2024 11:13 AM EDT) RBC, Urine 40-50(A) None Seen, 0-2 /HPF 03/11/2024 3:06 PM EDT [facility] WBC, Urine 20-30(A) None Seen, 0-2 /HPF 03/11/2024 3:06 PM EDT [facility] Squamous Epithelial Cells, Urine 3-5 /HPF 03/11/2024 3:06 PM EDT [facility] Calcium Oxalate Crystals, Urine Moderate /HPF 03/11/2024 3:06 PM EDT [facility] Bacteria, Urine Moderate(A) None Seen /HPF 03/11/2024 3:06 PM EDT [facility] Urine Urine specimen collection, clean catch / Unknown Non-Blood Collection / Unknown 03/11/2024 11:13 AM EDT 03/11/2024 2:45 PM EDT us Frazierkevin [place] SALES REPRESENTATIVE [employer] LAB URINE ORDERABLES Final R esult Performing Organization Address [facility] Co de Phone Number [facility] [address] [address], [place] [phone] * (ABNORMAL) Urine Culture, Routine (03/11/2024 11:13 AM EDT) Urine Culture >100,000 CFU/mL Pseudomonas aeruginosa(A) MINIMUM INHIBITORY CONCENTRATION ([place]) 03/15/2024 8:12 AM EDT [facility] Urine Urine specimen collection, [...] ug/ml: Susceptible Comment:[place] values in mcg/mL . us Lidia Barry SALES REPRESENTATIVE [employer] LAB MICROBIOLOGY - GENERAL O RDERABLES Final Result Performing Organization Address [facility] Co de Phone Number [facility] [address] [address], [place] [phone] * Lactic Acid, Plasma (03/11/2024 11:13 AM EDT) Lactic Acid 0.8 0.5 - 2.0 mmol/L 03/11/2024 3:02 PM EDT [facility] Blood Structure of peripheral vein / Unknown 03/11/2024 11:13 AM EDT 03/11/2024 2:40 PM EDT us [facility] SALES REPRESENTATIVE [employer] LAB BLOOD ORDERABLES Final R esult Performing Organization Address [facility]/ZIP Co de Phone Number [facility] [address] [address], [place] [phone] * Magnesium (03/11/2024 11:13 AM EDT) MG 1.8 1.5 - 2.5 mg/dL 03/11/2024 3:03 PM EDT [facility] Blood Structure of peripheral vein / Unknown Venipuncture / Unknown 03/11/2024 11:13 AM EDT 03/11/2024 2:34 PM EDT us [facility]idia [facility] SALES REPRESENTATIVE [employer] LAB BLOOD ORDERABLES Final R esult Performing Organization Address [facility] Co de Phone Number [facility] [address] [address], [place] [phone] * (ABNORMAL) Comprehensive Metabolic Panel (03/11/2024 11:13 AM EDT) NA 136 136 - 145 mmol/L 03/11/2024 3:03 PM EDT [facility] K 3.7 3.5 - 5.1 mmol/L 03/11/2024 3:03 PM EDT [facility] Cl 101 98 - 109 mmol/L 03/11/2024 3:03 PM EDT [facility] CO2 24 23 - 32 mmol/L 03/11/2024 3:03 PM EDT [facility] Anion Gap 15 >=0 03/11/2024 3:03 PM EDT [facility] Glucose 123(H) 60 - 99 mg/dL 03/11/2024 3:03 PM EDT [facility] Creatinine 1.26(H) 0.50 - 1.12 mg/dL 03/11/2024 3:03 PM EDT [facility] Calcium 8.9 8.4 - 10.4 mg/dL 03/11/2024 3:03 PM EDT [facility] Total Protein 5.6(L) 6.6 - 8.7 g/dL 03/11/2024 3:03 PM EDT [facility] Albumin 3.2(L) 3.5 - 5.0 g/dL 03/11/2024 3:03 PM EDT [facility] Bilirubin, Total 0.5 0.2 - 1.2 mg/dL 03/11/2024 3:03 PM EDT [facility] Alkaline Phosphatase 103 40 - 129 U/L 03/11/2024 3:03 PM EDT [facility] AST 73(H) 0 - 40 U/L 03/11/2024 3:03 PM EDT [facility] ALT 73(H) <=41 U/L 03/11/2024 3:03 PM EDT [facility] BUN 16 8 - 23 mg/dL 03/11/2024 3:03 PM EDT [facility] eGFR 56(L) >=60 mL/min/1. 73m2 03/11/2024 3:03 PM EDT [facility] Comment:The estimated glomer ular filtration [...] 2.1 - 4.2 g/dL 03/11/2024 3:03 PM EDT [facility] A/G Ratio 1.3(L) 1.5 - 3.0 03/11/2024 3:03 PM T [facility] Blood Structure of peripheral vein / Unknown Venipuncture / Unknown 03/11/2024 11:13 AM EDT 03/11/2024 2:34 PM EDT Lidia Barry SALES REPRESENTATIVE [employer] LAB BLOOD ORDERABLES Final R esult [facility] [address] [facility] [address] [place] [address], [place] [phone] * (ABNORMAL) CBC Auto Differential (03/11/2024 11:13 AM EDT) WBC 8.5 4.8 - 10.8 10*3/uL 03/11/2024 2:44 PM EDT [facility] RBC 3.04(L) 4.70 - 6.10 10*6/uL 03/11/2024 2:44 PM EDT [facility] Hemoglobin 8.6(L) 13.7 - 16.5 g/dL 03/11/2024 2:44 PM EDT [facility] Hematocrit 26.1(L) 40.5 - 48.5 % 03/11/2024 2:44 PM EDT [facility] MCV 85.9 80.0 - 94.0 fL 03/11/2024 2:44 PM EDT [facility] MCH 28.3 26.0 - 34.0 pg 03/11/2024 2:44 PM EDT [facility] MCHC 33.0 31.0 - 36.0 g/dL 03/11/2024 2:44 PM EDT [facility] RDW 14.9 12.0 - 15.0 % 03/11/2024 2:44 PM EDT [facility] RDW Standard Deviation 47.3(H) 35.1 - 43.9 fL 03/11/2024 2:44 PM EDT [facility] Platelets 131(L) 140 - 440 10*3/uL 03/11/2024 2:44 PM EDT [facility] MPV 10.6 9.4 - 12.4 fL 03/11/2024 2:44 PM EDT [facility] Neutrophil % 65.2 50.0 - 75.0 % 03/11/2024 2:44 PM EDT [facility] Immature Grans % 0.4 0.0 - 0.9 % 03/11/2024 2:44 PM EDT [facility] Lymphocyte % 20.9 20.0 - 44.0 % 03/11/2024 2:44 PM EDT [facility] Monocyte % 10.9 0.0 - 14.0 % 03/11/2024 2:44 PM EDT [facility] Eosinophil % 2.2 0.0 - 5.0 % 03/11/2024 2:44 PM EDT [facility] Basophil % 0.4 0.0 - 2.0 % 03/11/2024 2:44 PM EDT [facility] Neutrophil # 5.51 1.80 - 7.70 10*3/uL 03/11/2024 2:44 PM EDT [facility] Immature Grans # 0.03 0.00 - 0.03 10*3/uL 03/11/2024 2:44 PM EDT [facility] Lymphocyte # 1.80 1.00 - 4.75 10*3/uL 03/11/2024 2:44 PM EDT [facility] Monocyte # 0.90 0.00 - 6.00 10*3/uL 03/11/2024 2:44 PM EDT [facility] Eosinophil # 0.20 0.00 - 0.80 10*3/uL 03/11/2024 2:44 PM EDT [facility] Basophil # <0.03 0.00 - 0.20 10*3/uL 03/11/2024 2:44 PM EDT [facility] nRBC % 0.0 0 - 0 /100 WBCs 03/11/2024 2:44 PM EDT [facility] nRBC # <0.01 0.00 - 0.13 10*3/uL 03/11/2024 2:44 PM EDT [facility] Blood Structure of peripheral vein / Unknown Venipuncture / Unknown 03/11/2024 11:13 AM EDT 03/11/2024 2:[address] [facility] SALES REPRESENTATIVE [employer] LAB BLOOD ORDERABLES Final R esult Performing Organization Address [facility]/ZIP Co de Phone Number [facility] [address] [address], [place] [phone] * Barcenas Top, Urine (03/11/2024 11:13 AM EDT) Extra Tube Hold for add-ons. 03/11/2024 4:05 PM EDT [facility] Comment:Auto resulted. Urine Urine specimen collection, clean catch / Unknown Non-Blood Collection / Unknown 03/11/2024 11:13 AM EDT 03/11/2024 2:30 PM [address] [facility] SALES REPRESENTATIVE [employer] LAB URINE ORDERABLES Final R esult Performing Organization Address [facility] Co de Phone Number [facility] [address] [address], [place] [phone] * (ABNORMAL) Urinalysis W/Reflex to Microscopic & Culture (03/11/2024 11:13 AM EDT) Color, Urine Dark Yellow Yellow 03/11/2024 2:45 PM EDT [facility] Clarity, Urine Turbid(A) Clear 03/11/2024 2:45 PM EDT [facility] Specific [place], Urine 1.020 1.005 - 1.030 03/11/2024 2:45 PM EDT [facility] pH, Urine 5.5 5.0 - 8.0 03/11/2024 2:45 PM EDT [facility] Protein, Urine 100(A) Negative mg/dL 03/11/2024 2:45 PM EDT [facility] Glucose, Urine Negative Negative mg/dL 03/11/2024 2:45 PM EDT [facility] Ketones, Urine Trace(A) Negative mg/dL 03/11/2024 2:45 PM EDT [facility] Bilirubin, Urine Negative Negative 03/11/2024 2:45 PM EDT [facility] Blood, Urine Large(A) Negative 03/11/2024 2:45 PM EDT [facility] Nitrite, Urine Positive(A) Negative 03/11/2024 2:45 PM EDT [facility] Urobilinogen, Urine 1.0 0.2 - 1.0 E.U./dL 03/11/2024 2:45 PM EDT [facility] Leukocyte Esterase, Urine Moderate(A) Negative 03/11/2024 2:45 PM EDT [facility] Urine Urine specimen collection, clean catch / Unknown Non-Blood Collection / Unknown 03/11/2024 11:13 AM EDT 03/11/2024 2:30 PM EDT us Lidia Barry LAB URINE ORDERABLES Final R esult Performing Organization Address City/State/[facility] Co de Phone Number [facility] [address] [facility] [address] [place] [address], [place] [phone] documented in this encounter Visit Diagnoses Diagnosis [...] as of this encounter Care Teams Hand Binder Cutter Relationship Specialty Start Date End Date Uday Sheehan [address] [place] [address] [place] [address] PCP - General Internal Medicine 03/27/24 documented as of this encounter
--- OUTSIDE RECORDS SUMMARY | 2024-11-07 12:18 | XMS_ITS | Encounter Summary ---
Author Organization [facility] Address [address] [place] [address] Care Team Providers Care Manager Life Insurance Name Role Phone Uday Sheehan Primary Care Provider [phone] Encounter Details Date Type Department Care Team (Late st Contact Info) Description 03/17/2024 Lab Requisition [facility] [address] [place] [address] Ceiclio Bautista PA [address] [place] [address] Acute respiratory failure with hypoxia Social History Tobacco Use Types Packs/Day Years [...] this encounter Procedures * Due to [place] [employer] law, this organization might not be sharing negative HIV tests. Procedure Name Priority Date/Time Associated Diagnosis Comments C DIFF TOXIN B PCR W/REFLEX TO GDH & TOXIN (AMBULATORY) [facility] Routine 03/17/2024 7:46 AM EDT Acute respiratory failure with hypoxia (HCC) documented in this encounter Results * Due to [facility] law, this organization might not be sharing negative HIV tests. * C diff Toxin B PCR w/Reflex to GDH & Toxin (03/17/2024 7:46 AM EDT) C diff PCR Not Detected Not Detected [employer] 03/17/2024 9:01 AM EDT [facility] Stool Rectal route / Unknown 03/17/2024 7:46 AM EDT 03/17/2024 7:46 AM EDT Narrative [facility] - 03/17/2024 9:01 AM EDT Methodology: Real-time polymerase chain reaction (PCR) to detect the toxin B gene of toxigenic Clostridioides difficile (C. difficile) in unformed (liquid or soft) stool specimens obtained from patients suspected of having C. difficile infections (CDI). Cec[facility] BODY FLUIDS AND STOOLS O RDERABLES Final Result Performing Organization Address City/State/[facility] Co de Phone Number [facility] [address] [place] [address], documented in this encounter Visit Diagnoses Diagnosis [...] documented as of this encounter Care Teams Manager Life Insurance Relationship Specialty Start Date End Date Uday Sheehan [address] [place] [address] [place] [address] PCP - General Internal Medicine 03/27/24 documented as of this encounter
--- OUTSIDE RECORDS SUMMARY | 2024-11-07 12:18 | XMS_ITS | Encounter Summary ---
Author Organization [facility] Address [address] [place] [address] Care Team Providers Care Special Machine Stitcher Name Role Phone Uday Sheehan MD Primary Care Provider [phone] Encounter Details Date Type Department Care Team (Late st Contact Info) Description 10/17/2024 Lab Requisition [facility] - Main Lab [address] [facility] [place] [address] Tabby Bledsoe MD [address] [address] Anemia, unspecified; Chronic kidney disease, unspecified Social History Tobacco [...] Date/Time Associated Diagnosis Comments SEDIMENTATION RATE Routine 10/17/2024 7: 07 AM EDT Anemia, unspecified Chronic kidney disease, unspecified COMPLETE BLOOD COUNT Routine 10/17/2024 7:07 AM EDT Anemia, unspecified Chronic kidney disease, unspecified C-REACTIVE PROTEIN Routine 10/17/2024 7: 07 AM EDT Anemia, unspecified Chronic kidney disease, unspecified documented in this encounter Results * (ABNORMAL) C-reactive protein (10/17/2024 7:07 AM EDT) [facility] C-Reactive Protein 13.90(H) <=0.50 mg/dL LAB CHEMISTRY METHOD 10/17/2024 11:48 AM EDT [facility] Blood Venous blood specimen / Unknown Venipuncture / Unknown 10/17/2024 7:07 AM EDT 10/17/2024 10:31 AM EDT Tabby Bledsoe MD LAB BLOOD ORDERABLES Fin al Result Performing Organization Address [facility]/ZIP Co de Phone Number [facility] [address] [place] [address], [place] [phone] * (ABNORMAL) Sedimentation rate (10/17/2024 7:07 AM EDT) [facility] Sed Rate 88(H) 0 - 20 mm/hr LAB HEMETOLOGY METHOD 10/17/2024 11:47 AM EDT [facility] Blood Venous blood specimen / Unknown Venipuncture / Unknown 10/17/2024 7:07 AM EDT 10/17/2024 10:31 AM EDT Tabby Bledsoe MD LAB BLOOD ORDERABLES Fin al Result Performing Organization Address [facility]/ZIP Nj de Phone Number [facility] [address] [place] [address], [place] [phone] * (ABNORMAL) Complete blood count (10/17/2024 7:07 AM EDT) [facility] WBC 7.2 4.8 - 10.8 K/mcL LAB HEMETOLOGY METHOD 10/17/2024 11:23 AM EDT [facility] RBC 2.60(L) 4.50 - 5.50 M/mcL LAB HEMETOLOGY METHOD 10/17/2024 11:23 AM EDT [facility] Hemoglobin 7.2(L) 13.5 - 17.5 g/dL LAB HEMETOLOGY METHOD 10/17/2024 11:23 AM [facility] Hematocrit 24.2(L) 42.0 - 54.0 % LAB HEMETOLOGY METHOD 10/17/2024 11:23 AM [facility] MCV 92.4 79.0 - 98.0 FL LAB HEMETOLOGY METHOD 10/17/2024 11:23 AM [facility] MCH 27.5 27.0 - 32.0 pcg LAB HEMETOLOGY METHOD 10/17/2024 11:23 AM [facility] MCHC 29.8(L) 32.0 - 37.0 g/dL LAB HEMETOLOGY METHOD 10/17/2024 11:23 AM [facility] RDW 16.8(H) 11.0 - 15.0 % LAB HEMETOLOGY METHOD 10/17/2024 11:23 AM [facility] Platelets 253 130 - 400 K/mcL LAB HEMETOLOGY METHOD 10/17/2024 11:23 AM [facility] MPV 9.5 7.0 - 11.0 FL LAB HEMETOLOGY METHOD 10/17/2024 11:23 AM [facility] NRBC 0.0 <1.0 % LAB HEMETOLOGY METHOD 10/17/2024 11:23 AM [facility] NRBC Absolute 0.00 <0.10 K/mcL LAB HEMETOLOGY METHOD 10/17/2024 11:23 AM [facility] Blood Venous blood specimen / Unknown Venipuncture / Unknown 10/17/2024 7:07 AM EDT 10/17/2024 10:31 AM EDT us Tabby Bledsoe MD LAB BLOOD ORDERABLES Fin al Result [facility] [address] [place] [address], documented in this encounter Visit Diagnoses Diagnosis Anemia, unspecified Chronic kidney disease, unspecified documented in this encounter Additional Health Concerns 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
--- OUTSIDE RECORDS SUMMARY | 2024-11-07 12:18 | XMS_ITS | Encounter Summary ---
Author Organization [facility] Address [address] [place] [address] Phone Care Team Providers Care Jury Consultant Name Role Phone Uday Sheehan MD Primary Care Provider [phone] Encounter Details Date Type Department Care Team (Late st Contact Info) Description 09/08/2023 Documentation Only [facility], [address] [place] [address] [place], [place] [address] [place] [address] Social History Tobacco Use Types [...] on filedocumented in this encounter Care Teams Jury Consultant Relationship Specialty Start Date End Date Uday Sheehan MD [address] [place], [place] PCP - General 05/14/19 documented as of this encounter
--- OUTSIDE RECORDS SUMMARY | 2024-11-07 12:18 | XMS_ITS | Encounter Summary ---
Author Organization [facility] Address [address] [place] [address] Care Team Providers Care Hand Scraper Name Role Phone Uday Sheehan Primary Care Provider [phone] Encounter Details Date Type Department Care Team (Late st Contact Info) Description 03/07/2024 Lab Requisition [facility] [address] [place] [address] Valarie Pierson MD [address] [place] [address] Acute and chronic respiratory failure with hypoxia; [...] this encounter Procedures * Due to [place] state law, this organization might not [...] this encounter Results * Due to [place] state law, this organization might not be sharing negative HIV tests. * (ABNORMAL) CBC Auto Differential (03/07/2024 11:28 AM EDT) WBC 9.8 4.8 - 10.8 10*3/uL 03/07/2024 12:12 PM EDT [facility] RBC 3.39(L) 4.70 - 6.10 10*6/uL 03/07/2024 12:12 PM EDT [facility] Hemoglobin 9.4(L) 13.7 - 16.5 g/dL 03/07/2024 12:12 PM EDT [facility] Hematocrit 29.9(L) 40.5 - 48.5 % 03/07/2024 12:12 PM EDT [facility] MCV 88.2 80.0 - 94.0 fL 03/07/2024 12:12 PM EDT [facility] MCH 27.7 26.0 - 34.0 pg 03/07/2024 12:12 PM EDT [facility] MCHC 31.4 31.0 - 36.0 g/dL 03/07/2024 12:12 PM EDT [facility] RDW 15.5(H) 12.0 - 15.0 % 03/07/2024 12:12 PM EDT [facility] RDW Standard Deviation 50.0(H) 35.1 - 43.9 fL 03/07/2024 12:12 PM EDT [facility] Platelets 174 140 - 440 10*3/uL 03/07/2024 12:12 PM EDT [facility] MPV 10.5 9.4 - 12.4 fL 03/07/2024 12:12 PM EDT [facility] Neutrophil % 59.4 50.0 - 75.0 % 03/07/2024 12:12 PM EDT [facility] Immature Grans % 0.7 0.0 - 0.9 % 03/07/2024 12:12 PM EDT [facility] Lymphocyte % 23.8 20.0 - 44.0 % 03/07/2024 12:12 PM EDT [facility] Monocyte % 9.9 0.0 - 14.0 % 03/07/2024 12:12 PM EDT [facility] Eosinophil % 5.7(H) 0.0 - 5.0 % 03/07/2024 12:12 PM EDT [facility] Basophil % 0.5 0.0 - 2.0 % 03/07/2024 12:12 PM EDT [facility] Neutrophil # 5.82 1.80 - 7.70 10*3/uL 03/07/2024 12:12 PM EDT [facility] Immature Grans # 0.07(H) 0.00 - 0.03 10*3/uL 03/07/2024 12:12 PM EDT [facility] Lymphocyte # 2.30 1.00 - 4.75 10*3/uL 03/07/2024 12:12 PM EDT [facility] Monocyte # 1.00 0.00 - 6.00 10*3/uL 03/07/2024 12:12 PM EDT [facility] Eosinophil # 0.60 0.00 - 0.80 10*3/uL 03/07/2024 12:12 PM EDT [facility] Basophil # 0.10 0.00 - 0.20 10*3/uL 03/07/2024 12:12 PM EDT [facility] nRBC % 0.0 0 - 0 /100 WBCs 03/07/2024 12:12 PM EDT [facility] nRBC # <0.01 0.00 - 0.13 10*3/uL 03/07/2024 12:12 PM EDT [facility] Blood Structure of peripheral vein / Unknown Venipuncture / Unknown 03/07/2024 11:28 AM EDT 03/07/2024 11:28 AM EDT us Valarie Pierson MD LAB BLOOD ORDERABLES Final Res ult [facility] [address] [facility] [address] [place] [address], [place] [phone] * (ABNORMAL) Comprehensive Metabolic Panel (03/07/2024 11:28 AM EDT) NA 138 136 - 145 mmol/L 03/07/2024 12:30 PM EDT [facility] K 3.4(L) 3.5 - 5.1 mmol/L 03/07/2024 12:30 PM EDT [facility] Cl 104 98 - 109 mmol/L 03/07/2024 12:30 PM EDT [facility] CO2 23 23 - 32 mmol/L 03/07/2024 12:30 PM EDT [facility] Anion Gap 14 >=0 03/07/2024 12:30 PM EDT [facility] Glucose 135(H) 60 - 99 mg/dL 03/07/2024 12:30 PM EDT [facility] Creatinine 1.28(H) 0.50 - 1.12 mg/dL 03/07/2024 12:30 PM EDT [facility] Calcium 9.4 8.4 - 10.4 mg/dL 03/07/2024 12:30 PM EDT [facility] Total Protein 6.7 6.6 - 8.7 g/dL 03/07/2024 12:30 PM EDT [facility] Albumin 3.3(L) 3.5 - 5.0 g/dL 03/07/2024 12:30 PM EDT [facility] Bilirubin, Total 0.5 0.2 - 1.2 mg/dL 03/07/2024 12:30 PM EDT [facility] Alkaline Phosphatase 112 40 - 129 U/L 03/07/2024 12:30 PM EDT [facility] AST 31 0 - 40 U/L 03/07/2024 12:30 PM EDT [facility] ALT 36 <=41 U/L 03/07/2024 12:30 PM EDT [facility] BUN 35(H) 8 - 23 mg/dL 03/07/2024 12:30 PM EDT [facility] eGFR 55(L) >=60 mL/min/1. 73m2 03/07/2024 12:30 PM EDT [facility] Comment:The estimated glomer ular [...] - 4.2 g/dL 03/07/2024 12:30 PM EDT [facility] A/G Ratio 1.0(L) 1.5 - 3.0 03/07/2024 12:30 PM EDT [facility] Blood Structure of peripheral vein / Unknown Venipuncture / Unknown 03/07/2024 11:28 AM EDT 03/07/2024 11:28 AM EDT us Valarie Pierson MD LAB BLOOD ORDERABLES Final Res ult [facility] [address] [place] [address], documented in this encounter Visit Diagnoses Diagnosis [...] as of this encounter Care Teams Hand Scraper Relationship Specialty Start Date End Date Uday Sheehan [address] [place] [address] [place] [address] PCP - General Internal Medicine 03/27/24 documented as of this encounter
[2024-11-07 12:48] LABS: Anion Gap 13 (12-20); Blood Urea Nitrogen 36 mg/dL (9-16); Carbon Dioxide 26 mmol/L (22-29); Chloride 111 mmol/L (96-108); Creatinine Clr Calc Pharmacy 68.9; Estimated Glomerular Filt Rate > 60; Glucose Random 113 mg/dL (60-115); Potassium 5.2 mmol/L (3.3-5.1); Sodium 145 mmol/L (135-145)
--- NOTE | 2024-11-07 12:59 | ECG_ITS ---
Test Reason : sob Blood Pressure : */* mmHG Vent. 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
--- NOTE | 2024-11-07 13:48 | PHA.MEDREC ---
Pharmacy Consult ? Medication Reconciliation Pharmacy has completed the medication reconciliation. MED REC COMPLETE USING LIST PROVIDED FROM [facility] DATED 11/07/24
--- NOTE | 2024-11-07 13:58 | PM.IMHP ---
History of Present Illness Date of Service: 11/07/24 Attending physician on admission: Dereje Loyola Chief Complaint: Acute anemia Pt is an 84-year-old female with a PMH significant for?paroxysmal AFib no longer on Eliquis due to recurrent anemia hx of ablation, cardiomyopathy, HFrEF (40-45%), HTN, HLD, nephrolithiasis, and stage IV sacral decubitus ulcers with recent vertebral osteomyelitis who presents to the ED from [facility] for evaluation of routine labs showing H&H of 6.7/22.5. Pt previously admitted to the hospital approximately 1 month ago on 10/03-10/04 for similar symptoms of acute on chronic anemia and was transfused 1 unit PRBCs. Pt reports has been in his normal state of health since that time. Denies lightheadedness, dizziness. No melena or hematochezia. Denies hemoptysis or hematemesis. No nausea, vomiting, abdominal pain or GERD like symptoms. Of note, pt reports was started on heparin subcu injections 4-5 days ago for an unknown reason. In the ED pt was tachypneic up to 23 and soft BP as low as 100/40. Labs were significant for H&H 6.7/22.5 (baseline around 8.0/25) and potassium 5.2 with slight hemolysis. EKG demonstrated sinus rhythm with 1st degree AV block without significant ischemic changes, similar to prior. Pt was treated in the ED with 1 unit PRBCs. Pt is admitted to the hospital for treatment and further evaluation of acute on chronic anemia. Review of Systems Review of Systems: Negative except for that which is stated in the HPI. [facility] Medical History Bilateral hydronephrosis Delirium Altered mental status Sepsis Atherosclerotic cardiovascular disease PAF (paroxysmal atrial fibrillation) NSTEMI (non-ST elevated myocardial infarction) Chronic renal disease, stage 3, moderately decreased glomerular filtration rate (GFR) between 30-59 mL/min/1.73 square meter Chest pain Heart failure Thyroid disease GERD (gastroesophageal reflux disease) On anticoagulant therapy COVID-19 vaccine series completed Symptomatic cholelithiasis HTN (hypertension) Hyperlipidemia Atrial fibrillation Sleep apnea Elevated PSA Facet arthropathy, cervical BPH loc w urin obs/LUTS Family History Unknown No problems noted. 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 If so, by whom?: No Do you feel safe in your current relationship?: No Is there a partner from a previous relationship who is making you feel unsafe now?: No Are you made to feel afraid or neglected: No Advance Directives: Yes Advance Directives on File: Yes Advance Directives Date on File: 03/07/24 Do you have a plan to hurt others: No Plan Recently lost weight without trying: No Eating poorly because of decreased appetite: No Nutrition Risks: No Nutritional Risk service: No Current occupational status: retired Meds Allergies Allergy/AdvReac Type Severity Reaction Status Date / Time ibuprofen [IBUPROFEN] Allergy Intermediate HIVES Verified 11/07/24 10:31 hydromorphone [From DILAUDID] AdvReac Intermediate ILEUS Verified 11/07/24 10:31 procaine [From Novocain] AdvReac Intermediate has no Verified 11/07/24 10:31 numbing effect-states monocain works narcotic pain meds AdvReac Intermediate does not Uncoded 11/07/24 10:31 relieve pain per patient Home Medications ?Medication ?Instructions ?Recorded ?Confirmed ?Last Taken ?Type acetaminophen 325 mg tablet 650 mg PO Q6H PRN Pain/Fever 06/26/24 11/07/24 Unknown History amiodarone 200 mg tablet 200 mg PO DAILY 06/26/24 11/07/24 Unknown History ascorbic acid (vitamin C) 500 mg 500 mg PO BID 06/26/24 11/07/24 Unknown History tablet bisacodyl 10 mg rectal suppository 10 mg OR DAILY PRN Constipation 06/26/24 11/07/24 Unknown History docusate sodium 100 mg tablet 200 mg PO BID 06/26/24 11/07/24 Unknown History famotidine 20 mg tablet 20 mg PO BEDTIME 06/26/24 11/07/24 Unknown History ferrous sulfate 325 mg (65 mg 325 mg PO BID 06/26/24 11/07/24 Unknown History iron) tablet gabapentin 100 mg capsule 200 mg PO BID 06/26/24 11/07/24 Unknown History levothyroxine 100 mcg tablet 100 mcg PO DAILY@0600 06/26/24 11/07/24 Unknown History polyvinyl alcohol 1.4 % eye drops 1 drp ophthalmic (eye) Q6H PRN Dry 06/26/24 11/07/24 Unknown History Eyes sennosides 8.6 mg tablet (senna) 17.2 mg PO BEDTIME 06/26/24 11/07/24 Unknown History thiamine HCl (vitamin B1) 100 mg 100 mg PO DAILY 06/26/24 11/07/24 Unknown History tablet (Vitamin B-1) Lactobacillus acidoph-L.bulgaricus 1 tab PO BID 08/11/24 11/07/24 Unknown History 1 million cell tablet collagenase clostridium histo. 250 1 appl topical DAILY 08/11/24 11/07/24 Unknown History unit/gram topical ointment (Santyl) menthol 5 % topical patch (Cold 1 patch topical DAILY 08/11/24 11/07/24 Unknown History and Hot (menthol)) ondansetron HCl 4 mg tablet 4 mg PO Q8H PRN Nausea And Vomiting 08/11/24 11/07/24 Unknown History sodium phosphates 19 gram-7 118 ml OR DAILY PRN Constipation 08/11/24 11/07/24 Unknown History gram/118 mL enema (Fleet Enema) zinc acetate 50 mg (zinc) capsule 50 mg PO DAILY 08/11/24 11/07/24 Unknown History melatonin 5 mg tablet 10 mg PO BEDTIME PRN Insomnia 08/20/24 11/07/24 Unknown History tramadol 50 mg tablet 100 mg PO Q6H PRN Pain 08/30/24 11/07/24 Unknown History aspirin 81 mg tablet,delayed 81 mg PO DAILY 10/03/24 11/07/24 Unknown History release fluticasone propionate 50 2 spray intranasal DAILY 10/03/24 11/07/24 Unknown History mcg/actuation nasal spray,suspension magnesium hydroxide 400 mg/5 mL 30 ml PO DAILY PRN Constipation 10/03/24 11/07/24 Unknown History oral suspension (Milk of Magnesia) miconazole nitrate 2 % topical 1 appl topical BID 10/03/24 11/07/24 Unknown History cream pantoprazole 40 mg tablet,delayed 40 mg PO BID@0630,1630 10/03/24 11/07/24 Unknown History release trazodone 50 mg tablet 25 mg PO BID PRN DEPRESSION 10/03/24 11/07/24 Unknown History trazodone 50 mg tablet 50 mg PO BEDTIME 10/03/24 11/07/24 Unknown History amoxicillin 875 mg tablet 875 mg PO BID 11/07/24 11/07/24 Unknown History atorvastatin 40 mg tablet 40 mg PO DAILY 11/07/24 11/07/24 Unknown History doxazosin 2 mg tablet 2 mg PO BEDTIME 11/07/24 11/07/24 Unknown History doxycycline hyclate 100 mg tablet 100 mg PO BID 11/07/24 11/07/24 Unknown History heparin, porcine (PF) 5,000 5,000 unit subcut Q8H 11/07/24 11/07/24 Unknown History unit/0.5 mL injection syringe sodium chloride-hypochlorous acid 1 irrig irrigation QSHIFT PRN 11/07/24 11/07/24 Unknown History 0.033 % irrigation solution (Vashe) WOUND CLEANING Physical Exam Vital Signs and Narrative: Vital Signs: Last Vital Signs Temp 98.3 F 11/07/24 13:56 Pulse 79 11/07/24 13:56 Resp 20 11/07/24 13:56 BP 111/46 L 11/07/24 13:56 Pulse Ox 94 11/07/24 13:56 O2 Del Method Room Air 11/07/24 13:56 BMI result Body Mass Index 31.4 General: AOx3, no acute distress Resp: CTA bilaterally CVS: S1, S2, regular rate, +murmur GI: +BS, NT, no distention Skin: Unstageable decubitus ulcers of bilateral heels, heels in boots. Large stage IV sacral decubitus ulcer w/wound vac. Neuro: Cranial nerves II-XII grossly intact bilaterally. Motor grossly intact bilaterally Extremities: 1+ bilateral pitting edema Psych: Appropriate affect Results Labs 11/07/24 11:58 11/07/24 12:25 Labs: Laboratory Results - last 24 hr 11/07/24 11/07/24 11/07/24 11:58 12:17 12:25 MCV 90.4 MCH 26.9 L MCHC 29.8 L RDW 17.9 H Plt Count 318 D MPV 9.2 L Immature Gran % (Auto) 0.8 H Neut % (Auto) 69.8 Lymph % (Auto) 13.9 L [place] % (Auto) 12.1 H Eos % (Auto) 3.1 Baso % (Auto) 0.3 Lymph # (Auto) 1.0 L [place] # (Auto) 0.9 Eos # (Auto) 0.2 Baso # (Auto) 0.0 Abs Immat Gran (auto) 0.06 H Absolute Neuts (auto) 5.0 Absolute Nucleated RBC 0.000 Nucleated RBC % (auto) 0.0 Hold Blue Top SEE NOTE Anion Gap 13 Estim Creat Clear Calc 68.9 Estimated GFR > 60 Random Glucose 113 Calcium 8.0 L Blood Type O Positive Antibody Screen NEGATIVE Crossmatch See Detail Assessment and Plan (1) Acute on chronic anemia: Status: Acute Plan Pt is an 84-year-old female with a PMH significant for?paroxysmal AFib no longer on Eliquis due to recurrent anemia hx of ablation, cardiomyopathy, HFrEF (40-45%), HTN, HLD, nephrolithiasis, and stage IV sacral decubitus ulcers with recent vertebral osteomyelitis who presents to the ED from [facility] for evaluation of routine labs showing H&H of 6.7/22.5. Pt is admitted to the hospital for treatment and further evaluation of acute on chronic anemia. Acute on chronic blood loss anemia H&H 6.7/22.5, decreased from 7.9/25.2 on 10/04/2024 Pt asymptomatic: Denies lightheadedness, dizziness, increased fatigue, melena, or hematochezia Pt transfused 1 unit PRBCs in the ED Pt recently started on heparin 5000 units subQ t.i.d. some 4-5 days ago Continue home iron supplementation Stop heparin subq Follow CBC Chronic decubitus ulcers Pt with unstable bilateral ulcers on heels, stage IV sacral decubitus ulcer Previous admitted on 08/29-09/03/2024 for osteomyelitis Pt positioning q.2h, air loss mattress, protein supplementation Wound vac on sacral decubitus ulcer See wound care notes for care of other ulcers CKD 3 Stable, at baseline Monitor BMP Paroxysmal AFib No longer on Eliquis due to anemia Continue amiodarone Hypothyroidism Continue levothyroxine Full Code Attending:?Dr. Loyola DVT Prophylaxis: Pneumatic compression due to anemia Pt will require a 2 nights stay in the hospital for treatment and further evaluation of?acute on chronic blood loss anemia requiring transfusion and close monitoring of labs to evaluate for acute bleeding. Quality Stroke Does the patient have a stroke diagnosis?: No VTE Prior VTE?: No VTE Risk Level:: Medical - moderate - high VTE Device Contraindication: N/A - Device Ordered VTE Drug Contraindication: Treatment Not Indicated
--- NOTE | 2024-11-07 17:26 | HO.SKINPHOTO ---
Location: Sacrum Category: Stage: Length: Width: Depth: cm Location: Left hip Category: Stage: Length: Width: Depth: cm Location: Category: Stage: Length: Width: Depth: cm Location: Category: Stage: Length: Width: Depth: cm Location: Category: Stage: Length: Width: Depth: cm Location: Category: Stage: Length: Width: Depth: cm
--- NOTE | 2024-11-07 17:37 | PC.NURSE ---
Patient arrived to unit with wound vac in place and active. Patient incontinent of stool and wound vac dressing soiled with seal broken. Wound vac dressing removed and replaced with wet to dry dressing. Airloss mattress with wedges, pillows, and heel boots for off-loading in place. Images uploaded to skin note. Wound care consult placed per policy.
[2024-11-07] MEDS: Melatonin 3 MG TABLET 6 MG PO (22:08)
[2024-11-07] MEDS: 0.9 % Sodium Chloride Flush 3 ML SYRINGE IVFLUSH (22:08)
--- NOTE | 2024-11-08 00:52 | PC.NURSE ---
Patient has bandaged both lower legs and is refusing to have it undone for assessment. Own, cloth pressure relief boots on. Foam dressing to left hip. Large dressing to sacrum reinforced.
[2024-11-08 04:00] VITALS: BP 118/56; PULSE 67; RESP 16; TEMP 36.5; O2SAT 95
[2024-11-08 07:16] VITALS: BP 103/55; PULSE 72; RESP 18; TEMP 36.2; O2SAT 94
[2024-11-08 07:23] LABS: Hematocrit 24.6 % (42.0-52.0); Hemoglobin 7.5 g/dl (14.0-18.0); Mean Corpuscular HGB Conc 30.5 g/dl (31.0-36.0); Mean Corpuscular Volume 88.5 fL (80.0-98.0); Mean Platelet Volume 9.3 fL (9.4-12.4); Platelet Count 322 X10*3/uL (160-400); Red Blood Count 2.78 X10*6/uL (4.60-5.80); Red Cell Distribution Width 18.4 % (11.0-16.0); White Blood Count 7.2 X10*3/uL (4.8-10.8)
[2024-11-08 07:37] LABS: Anion Gap 11 (12-20); Blood Urea Nitrogen 34 mg/dL (9-16); Calcium 8.3 mg/dL (8.4-10.2); Carbon Dioxide 26 mmol/L (22-29); Chloride 109 mmol/L (96-108); Estimated Glomerular Filt Rate > 60; Glucose Random 91 mg/dL (60-115); Potassium 4.3 mmol/L (3.3-5.1); Sodium 142 mmol/L (135-145)
[2024-11-08] MEDS: 0.9 % Sodium Chloride Flush 3 ML SYRINGE IVFLUSH ×3 (09:10→22:28)
[2024-11-08] MEDS: Amoxicillin/Potassium Clav 875 MG TABLET PO ×2 (09:11→22:27)
[2024-11-08] MEDS: Amiodarone HCL 200 MG TABLET PO (09:11)
[2024-11-08] MEDS: Doxycycline Monohydrate 100 MG CAPSULE PO ×2 (09:12→22:27)
[2024-11-08] MEDS: Ferrous Sulfate 324 MG TABLET.DR PO ×2 (09:12→22:27)
[2024-11-08] MEDS: Atorvastatin Calcium 40 MG TABLET PO (09:12)
[2024-11-08] MEDS: Gabapentin 100 MG CAPSULE 200 MG PO ×2 (09:13→22:27)
[2024-11-08 09:55] VITALS: BMI 31.4
--- NOTE | 2024-11-08 10:17 | MHC.CLN ---
NUTRITION CONSULT FOR WOUNDS AND TUBE FEEDING. DIET=REGULAR WITH ENSURE TID. SUPPLEMENT PROVIDES 1050 KCALS, 60 G PROTEIN. PATIENT WITH INCREASED NUTRITION NEEDS, KCALS AND PROTEIN, DUE TO MULTIPLE PRESSURE INJURIES-STAGE IV SACRAL WOUND, UNSTAGEABLE AREA TO LEFT HIP, UNSTAGEABLE BILATERAL HEELS. REQUIRES ADDITIONAL NUTRITION/HYDRATION VIA TUBE FEEDING. RECEIVES TUBE FEEDING AT REHAB FACILITY JEVITY 1.2 @ 80 ML PER HOUR FROM 10 P TO 4 A. PER HOSPITAL FORMULARY, PROVIDE JEVITY 1.0 AT 80 ML PER HOUR, ON AT 10 P OFF AT 4 A, FREE WTAER FLUSHES 240 ML Q 8 HOURS. TUBE FEEDING AND FLUSHES PROVIDE 509 KCALS, 21.2 G PROTEIN, 1121 ML TOTAL FREE WATER FROM FORMULA AND FLUSHES. PATIENT REPORTS THAT EATS WELL AND TAKES SUPPLEMENT TID. FOLLOW FOR TUBE FEED TOLERANCE, PO INTAKE, AND SKIN INTEGRITY. SEE CLINICAL NUTRITION ASSESSMENT 11/08/24. WHEN DISCHARGED, MAY RESUME TUBE FEEDING WITH JEVITY 1.2 AT 80 ML PER HOUR, ON AT 10 P OFF AT 4 A WITH FWF 240 ML Q 8 HOURS.
--- NOTE | 2024-11-08 13:16 | HO.WOUND ---
Wound Consult: Initial 84yr old?male admitted to [facility] [place] on 11/07/24 - See progress notes and H&P for detailed history.? Wound consult placed for Multiple wounds POA.? Patient agreeable to assessment and photo documentation.? Patient is known to this health science writer from previous admissions. Sacrum Etiology: Stage 4 PI??Present on Admission Wound Bed: marbled wound bed slough and pink moist tissue - concern for proximity to anus and continue stooling - likely impacting wound healing and wound progression Drainage / Odor: mal odor noted Edges: ? rolled Shirley wound: MASD with maceration Pain: painful per pt statement Goals of Treatment: ? Surgery consult for assessment of diverting ostomy and saline packing Left hip Etiology: ??Unstageable PI Present on Admission Wound Bed: adherent slough Drainage / Odor: tobin drainage Edges: ? rolled Shirley wound: ?pink No Induration, Fluctuance or Warmth noted Pain: painful Goals of Treatment: ? durafiber for moisture management Left Leg Etiology: ?stage 4 PI?Present on Admission Wound Bed: pink moist wound bed with adehrent yellow slough and exposed tendon Drainage / Odor: tobin mal odor noted Edges: ? irregular Shirley wound: pink mild erythema? No Induration, Fluctuance or Warmth noted Pain: painful per pt Goals of Treatment: ? durafiber AG for moisture management Left heel and Foot Etiology: ??DTI Present on Admission Wound Bed: intact dark purple maroon nonblanchable tissue Drainage / Odor: None Edges: ? irregular Shirley wound: ?pink dry flaking tissue No Induration, Fluctuance or Warmth noted Goals of Treatment: ?off load and protect Right thigh Etiology: Resurfacing DTI??Present on Admission Wound Bed: dry stable pigmented epidermal layer Goals of Treatment: ? Skin prep to protect from friction Right Heel Right Heel and foot Etiology: ?stage 4?Present on Admission Wound Bed: red full thickness tissue - moist wound bed Drainage / Odor: Tobin mal odor noted Edges: ?Irregular Shirley wound: Scattered areas of DTI see photo ? No Induration, Fluctuance or Warmth noted Pain: painful to touch Goals of Treatment: ? Off Load pressure and Durafiber for moisture management Recommendations: 1. Turn and Reposition every 2 hours and as needed for patient comfort.? Use pillows or wedges to support off loading positions. Wedges in use. 2. Off Load all bony prominences with use of pillows and heel boots if needed.? Apply Preventative foams where needed. ? 3. Monitor for incontinence and moisture control, use barrier creams when needed for prevention and treatment. 4. Provide adequate and supplemental nutrition.? 5. Continue low air loss mattress. If patient remains inpatient please order Agility pulsate bed. 6. When applicable maintain blood glucose levels per Providers order. Sacrum - Off Load Pressure with Q2 hr turns and use of pillows - Cleanse with NS moist gauze, pat dry. ?Apply thin layer of Triad to wound bed. Lightly pack wound bed with saline moist gauze, cover with Dry gauze, ABD pad and tape. Change daily. Left Hip, Right Heel and Left Leg - Cleanse with NS moist gauze, pat dry. Apply skin prep to periwound. Lightly pack wound bed with Durafiber AG, followed by dry gauze and ABD pad. Change every other day. All DTI area on feet apply skin prep allow to dry, padd with foam dressing and use heel boot protectors to off load pressure. Re-consult wound care Nurse for wound deterioration or wound changes.
--- NOTE | 2024-11-08 13:55 | HO.PM.IMPN ---
Subjective Subjective Date of Service: 11/08/24 Interval History: No acute issues overnight. Good response to transfusion Review of Systems Denies chest pain Denies shortness of breath Denies nausea vomiting diarrhea Denies fever chills Physical Exam Vital Signs: Vital Signs: Last Vital Signs Temp 97.2 F 11/08/24 07:16 Pulse 72 11/08/24 07:16 Resp 18 11/08/24 07:16 BP 103/55 L 11/08/24 07:16 Pulse Ox 94 11/08/24 07:16 O2 Del Method Room Air 11/08/24 07:16 BMI result Body Mass Index 31.4 Const: Other: Awake alert oriented x3 no acute distress Resp: Other: Clear to auscultation bilaterally no rales rhonchi or wheezes Cardio: Other: No S4; positive S1-S2; no S3 murmurs rubs or gallops GI: Other: Soft nontender nondistended normoactive bowel sounds Extrem: Other: Bilateral lower extremity wraps in place Objective Data Active Medications Amiodarone HCl (Amiodarone Hcl 200 Mg Tablet) 200 mg PO DAILY [facility] Last Admin: 11/08/24 09:11 Dose: 200 mg Documented By: TERRY Amoxicillin/Clavulanate Potassium (Amoxicillin/Potassium Clav 875 Mg Tablet) 875 mg PO BID [facility] Last Admin: 11/08/24 09:11 Dose: 875 mg Documented By: TERRY Atorvastatin Calcium (Atorvastatin Calcium 40 Mg Tablet) 40 mg PO DAILY [facility] Last Admin: 11/08/24 09:12 Dose: 40 mg Documented By: TERRY Docusate Sodium (Docusate Sodium 100 Mg Capsule) 200 mg PO BID [facility] Last Admin: 11/08/24 09:12 Dose: Not Given Documented By: TERRY Non-Admin Reason: Patient Refused Doxazosin Mesylate (Doxazosin Mesylate 2 Mg Tablet) 2 mg PO BEDTIME [facility]; Protocol Last Admin: 11/08/24 08:55 Dose: Not Given Documented By: TERRY Non-Admin Reason: Med for HS Doxycycline Monohydrate (Doxycycline Monohydrate 100 Mg Capsule) 100 mg PO BID [facility] Last Admin: 11/08/24 09:12 Dose: 100 mg Documented By: TERRY Ferrous Sulfate (Ferrous Sulfate 324 Mg Tablet.) 324 mg PO BID [facility] Last Admin: 11/08/24 09:12 Dose: 324 mg Documented By: TERRY Gabapentin (Gabapentin 100 Mg Capsule) 200 mg PO BID [facility] Last Admin: 11/08/24 09:13 Dose: 200 mg Documented By: TERRY Melatonin (Melatonin 3 Mg Tablet) 6 mg PO BEDTIME PRN PRN Reason: Insomnia Last Admin: 11/07/24 22:08 Dose: 6 mg Documented By: BENJAMÍN Omeprazole (Omeprazole 20 Mg Capsule.) 20 mg PO BID@0630,1630 [facility] Polyethylene Glycol (Polyethylene Glycol 3350 17 Gm Powd.Pack) 17 gm PO DAILY [facility] Last Admin: 11/08/24 09:14 Dose: Not Given Documented By: TERRY Non-Admin Reason: Patient Refused Sodium Chloride (0.9 % Sodium Chloride Flush 3 Ml Syringe) 3 ml IVFLUSH QSHIFT [facility] Last Admin: 11/08/24 09:10 Dose: 3 ml Documented By: TERRY Trazodone HCl (Trazodone Hcl 50 Mg Tablet) 50 mg PO BEDTIME [facility] Labs 11/08/24 06:29 11/08/24 06:29 Labs: Laboratory Results - last 24 hr 11/07/24 11/08/24 12:17 06:29 MCV 88.5 MCH 27.0 MCHC 30.5 L RDW 18.4 H Plt Count 322 MPV 9.3 L Absolute Nucleated RBC 0.000 Nucleated RBC % (auto) 0.0 Anion Gap 11 L Estim Creat Clear Calc 74.0 Estimated GFR > 60 Random Glucose 91 Calcium 8.3 L Crossmatch See Detail Assessment and Plan (1) Acute on chronic anemia: Status: Acute (2) Osteomyelitis: Status: Acute (3) Decubitus ulcer of sacral region, stage 4: Status: Acute Plan Pt is an 84-year-old female with a PMH significant for?paroxysmal AFib no longer on Eliquis due to recurrent anemia hx of ablation, cardiomyopathy, HFrEF (40-45%), HTN, HLD, nephrolithiasis, and stage IV sacral decubitus ulcers with recent vertebral osteomyelitis who presents to the ED from [facility] and rehab SN[facility] for evaluation of routine labs showing H&H of 6.7/22.5. Pt is admitted to the hospital for treatment and further evaluation of acute on chronic anemia. 1.Acute on chronic blood loss anemia -good response to transfusion -continue outpatient iron supplementation -follow daily CBCs 2.Chronic decubitus ulcers -bilateral ulcers on heels, stage IV sacral decubitus ulcer -wound VAC removed on admission secondary to stool. Seen by Wound Care recommending surgical consult for diverting ostomy. -consult placed -see wound care consult 3.CKD 3 -at baseline -follow renals/divalents 4.Paroxysmal AFib -acceptable control -no Eliquis/heparin at this time Full Code Pneumatic compression due to anemia Patient will require ongoing hospitalization to monitor hemoglobin and surgical consultation for questionable diverting ostomy Quality Stroke Does the patient have a stroke diagnosis?: No VTE Prior VTE?: No VTE Risk Level:: Medical - moderate - high VTE Device Contraindication: N/A - Device Ordered VTE Drug Contraindication: Treatment Not Indicated
[2024-11-08 15:26] VITALS: BP 134/65; PULSE 73; RESP 16; TEMP 36.2; O2SAT 96
[2024-11-08] MEDS: Omeprazole 20 MG CAPSULE.DR PO (16:24)
[2024-11-08] MEDS: Lidocaine 4 % Patch ADH..PATCH 1 PATCH TRANSDERMA (17:19)
[2024-11-08 19:22] VITALS: BP 144/65; PULSE 79; RESP 16; TEMP 36.4; O2SAT 96
[2024-11-08] MEDS: Doxazosin Mesylate 2 MG TABLET PO (22:27)
[2024-11-08] MEDS: traZODone HCL 50 MG TABLET PO (22:27)
[2024-11-09 03:32] VITALS: BP 100/52; PULSE 117; RESP 16; TEMP 37.2; O2SAT 93
[2024-11-09 05:31] LABS: MANUAL DIFF FLAG NO
[2024-11-09 05:40] LABS: Basophils Percent Auto 0.3 % (0-2); Eosinophils Absolute Auto 0.3 X10*3/uL (0.0-0.4); Eosinophils Percent Auto 4.6 % (0-4); Hematocrit 24.3 % (42.0-52.0); Hemoglobin 7.5 g/dl (14.0-18.0); Imm Gran Abs Auto 0.05 X10*3/uL (0.00-0.03); Imm Gran Pct Auto 0.8 % (0.0-0.4); Lymphocytes Absolute Auto 1.3 X10*3/uL (1.2-4.9); Lymphocytes Percent Auto 19.7 % (20-40); Mean Corpuscular HGB Conc 30.9 g/dl (31.0-36.0); Mean Corpuscular Volume 87.4 fL (80.0-98.0); Mean Platelet Volume 9.1 fL (9.4-12.4); Monocytes Absolute Auto 0.9 X10*3/uL (0.1-1.2); Monocytes Percent Auto 13.7 % (2-11); Neutrophils Percent Auto 60.9 % (45-73); Platelet Count 294 X10*3/uL (160-400); Red Blood Count 2.78 X10*6/uL (4.60-5.80); Red Cell Distribution Width 18.2 % (11.0-16.0); White Blood Count 6.6 X10*3/uL (4.8-10.8)
[2024-11-09] MEDS: Omeprazole 20 MG CAPSULE.DR PO ×2 (05:53→15:17)
[2024-11-09 06:02] LABS: Alanine Aminotransferase 40 U/L (0-40); Albumin Level 1.8 g/dL (3.5-5.0); Anion Gap 10 (12-20); Aspartate Amino Transferase 47 U/L (5-37); Bilirubin Total 0.2 mg/dL (0.0-1.0); Blood Urea Nitrogen 33 mg/dL (9-16); Carbon Dioxide 25 mmol/L (22-29); Chloride 111 mmol/L (96-108); Creatinine Clr Calc Pharmacy 65.6; Estimated Glomerular Filt Rate > 60; Glucose Fasting 130 mg/dL (60-99); Sodium 142 mmol/L (135-145); Total Protein 5.6 g/dL (6.5-8.0)
[2024-11-09 06:05] LABS: Alkaline Phosphatase 82 U/L (39-117)
--- NOTE | 2024-11-09 06:11 | MHC.PIE ---
p; order shows pt diet to be tube feed from [id number] and has no diet during day shift. i; dr erickson notified. regular diet e; will cont to monitor
[2024-11-09 07:11] VITALS: BP 122/58; PULSE 74; RESP 16; TEMP 36.2; O2SAT 92
[2024-11-09] MEDS: Atorvastatin Calcium 40 MG TABLET PO (08:22)
[2024-11-09] MEDS: Amoxicillin/Potassium Clav 875 MG TABLET PO ×2 (08:23→19:46)
[2024-11-09] MEDS: Ferrous Sulfate 324 MG TABLET.DR PO ×2 (08:23→19:46)
[2024-11-09] MEDS: Doxycycline Monohydrate 100 MG CAPSULE PO ×2 (08:23→19:46)
[2024-11-09] MEDS: Amiodarone HCL 200 MG TABLET PO (08:23)
[2024-11-09] MEDS: Gabapentin 100 MG CAPSULE 200 MG PO ×2 (08:23→19:46)
[2024-11-09] MEDS: 0.9 % Sodium Chloride Flush 3 ML SYRINGE IVFLUSH ×3 (08:24→19:47)
[2024-11-09] MEDS: oxyCODONE HCl Immed Release 5 MG TABLET PO (08:44)
--- NOTE | 2024-11-09 09:14 | MHC.CLN ---
F/U COMMUNICATED WITH RN. TF ORDER WRITTEN CORRECTLY WITH SECONDARY DIET REGULAR WITH ENSURE TID. DIET ORDER REWRITTEN IN CORRECT FORMAT TO INCLUDE TF AND PO.
--- NOTE | 2024-11-09 11:41 | PC.NURSE ---
Pt educated on importance of change to speciality bed, pt is refusing at this time, states he does not want to be transferred to new bed if ordered, pain medication discussed pt continues to refuses.
--- NOTE | 2024-11-09 12:51 | HO.PM.IMPN ---
Subjective Subjective Date of Service: 11/09/24 Interval History: Increased pain and left shoulder; Lidoderm patch less effective Review of Systems Denies chest pain Denies shortness of breath Denies nausea vomiting diarrhea Denies fever chills Physical Exam Vital Signs: Vital Signs: Last Vital Signs Temp 97.2 F 11/09/24 07:11 Pulse 74 11/09/24 07:11 Resp 16 11/09/24 07:11 BP 122/58 L 11/09/24 07:11 Pulse Ox 92 11/09/24 07:11 O2 Del Method Room Air 11/09/24 07:11 BMI result Body Mass Index 31.4 Const: Other: Awake alert oriented x3 no acute distress Resp: Other: Clear to auscultation bilaterally no rales rhonchi or wheezes Cardio: Other: No S4; positive S1-S2; no S3 murmurs rubs or gallops GI: Other: Soft nontender nondistended normoactive bowel sounds Extrem: Other: Bilateral lower extremity wraps in place Objective Data Active Medications Amiodarone HCl (Amiodarone Hcl 200 Mg Tablet) 200 mg PO DAILY [facility] Last Admin: 11/09/24 08:23 Dose: 200 mg Documented By: JANN Amoxicillin/Clavulanate Potassium (Amoxicillin/Potassium Clav 875 Mg Tablet) 875 mg PO BID [facility] Last Admin: 11/09/24 08:23 Dose: 875 mg Documented By: JANN Atorvastatin Calcium (Atorvastatin Calcium 40 Mg Tablet) 40 mg PO DAILY [facility] Last Admin: 11/09/24 08:22 Dose: 40 mg Documented By: JANN Docusate Sodium (Docusate Sodium 100 Mg Capsule) 200 mg PO BID [facility] Last Admin: 11/09/24 08:43 Dose: Not Given Documented By: JANN Non-Admin Reason: pt stooling continuously Doxazosin Mesylate (Doxazosin Mesylate 2 Mg Tablet) 2 mg PO BEDTIME [facility]; Protocol Last Admin: 11/08/24 22:27 Dose: 2 mg Documented By: CASEY Doxycycline Monohydrate (Doxycycline Monohydrate 100 Mg Capsule) 100 mg PO BID [facility] Last Admin: 11/09/24 08:23 Dose: 100 mg Documented By: JANN Ferrous Sulfate (Ferrous Sulfate 324 Mg Tablet.) 324 mg PO BID [facility] Last Admin: 11/09/24 08:23 Dose: 324 mg Documented By: JANN Gabapentin (Gabapentin 100 Mg Capsule) 200 mg PO BID [facility] Last Admin: 11/09/24 08:23 Dose: 200 mg Documented By: JANN Melatonin (Melatonin 3 Mg Tablet) 6 mg PO BEDTIME PRN PRN Reason: Insomnia Last Admin: 11/07/24 22:08 Dose: 6 mg Documented By: BENJAMÍN Omeprazole (Omeprazole 20 Mg Capsule.) 20 mg PO BID@0630,1630 [facility] Last Admin: 11/09/24 05:53 Dose: 20 mg Documented By: CASEY Oxycodone HCl (Oxycodone Hcl Immed Release 5 Mg Tablet) 5 mg PO Q4H PRN PRN Reason: Pain, Moderate(Pain Scale 4-6) Last Admin: 11/09/24 08:44 Dose: 5 mg Documented By: JANN Polyethylene Glycol (Polyethylene Glycol 3350 17 Gm Powd.Pack) 17 gm PO DAILY [facility] Last Admin: 11/09/24 08:43 Dose: Not Given Documented By: JANN Non-Admin Reason: pt stooling continuously Sodium Chloride (0.9 % Sodium Chloride Flush 3 Ml Syringe) 3 ml IVFLUSH QSHIFT [facility] Last Admin: 11/09/24 08:24 Dose: 3 ml Documented By: JANN Trazodone HCl (Trazodone Hcl 50 Mg Tablet) 50 mg PO BEDTIME [facility] Last Admin: 11/08/24 22:27 Dose: 50 mg Documented By: CASEY Labs 11/09/24 05:21 11/09/24 05:21 Labs: Laboratory Results - last 24 hr 11/09/24 05:21 MCV 87.4 MCH 27.0 MCHC 30.9 L RDW 18.2 H Plt Count 294 MPV 9.1 L Immature Gran % (Auto) 0.8 H Neut % (Auto) 60.9 Lymph % (Auto) 19.7 L Floyd % (Auto) 13.7 H Eos % (Auto) 4.6 H Baso % (Auto) 0.3 Lymph # (Auto) 1.3 Floyd # (Auto) 0.9 Eos # (Auto) 0.3 Baso # (Auto) 0.0 Abs Immat Gran (auto) 0.05 H Absolute Neuts (auto) 4.0 Absolute Nucleated RBC 0.000 Nucleated RBC % (auto) 0.0 Anion Gap 10 L Estim Creat Clear Calc 65.6 Estimated GFR > 60 Fasting Glucose 130 H Calcium 8.0 L Total Bilirubin 0.2 AST 47 H ALT 40 Alkaline Phosphatase 82 Total Protein 5.6 L Albumin 1.8 L Assessment and Plan (1) Acute on chronic anemia: Status: Acute (2) Decubitus ulcer of sacral region, stage 4: Status: Acute Plan Pt is an 84-year-old female with a PMH significant for?paroxysmal AFib no longer on Eliquis due to recurrent anemia hx of ablation, cardiomyopathy, HFrEF (40-45%), HTN, HLD, nephrolithiasis, and stage IV sacral decubitus ulcers with recent vertebral osteomyelitis who presents to the ED from [facility] and rehab SNF for evaluation of routine labs showing H&H of 6.7/22.5. Pt is admitted to the hospital for treatment and further evaluation of acute on chronic anemia. 1.Acute on chronic blood loss anemia -good response to transfusion -continue outpatient iron supplementation -follow daily CBCs.. Hemoglobin stable 2.Chronic decubitus ulcers -bilateral ulcers on heels, stage IV sacral decubitus ulcer -wound VAC removed on admission secondary to stool. Seen by Wound Care recommending surgical consult for diverting colostomy. Discussed at length with patient Await surgical input -see wound care consult 3.CKD 3 -at baseline -follow renals/divalents 4.Paroxysmal AFib -acceptable control -no Eliquis/heparin at this time Full Code Pneumatic compression due to anemia Patient will require ongoing hospitalization to monitor hemoglobin and surgical consultation for questionable diverting ostomy Quality Stroke Does the patient have a stroke diagnosis?: No VTE Prior VTE?: No VTE Risk Level:: Medical - moderate - high VTE Device Contraindication: N/A - Device Ordered VTE Drug Contraindication: Treatment Not Indicated
[2024-11-09 15:13] VITALS: BP 115/57; PULSE 68; RESP 16; TEMP 36.4; O2SAT 97
[2024-11-09] MEDS: oxyCODONE HCl Immed Release 5 MG TABLET 10 MG PO (15:18)
--- NOTE | 2024-11-09 15:46 | MHC.CM.PN ---
IMM 11/09/24 DX Anemia Patient lives at [facility]. He has pressure ulcers; which require wound management. Patient is bed bound r/t ulcers sacral/coccyx and chaya heals. Dtr is HCP on file DP return to [facility] via BLS
[2024-11-09 19:17] VITALS: BP 113/55; PULSE 77; RESP 18; TEMP 36.6; O2SAT 96
--- NOTE | 2024-11-09 19:23 | PM.CNGS ---
History of Present Illness Consult details Consult date: 11/09/24 Reason for consult: wound care Requesting physician: Dereje Loyola Narrative: The patient is an 84-year-old male with multiple medical issues chronic anemia urinary tract infection history osteomyelitis of the sacral area decubitus sacral ulcer stage IV history of encephalopathy atrial fibrillation aspiration pneumonia cardiomyopathy aortic stenosis history of [place] chronic kidney disease hypertension. Overall the patient has become more debilitated and bed-bound. In the process he has developed a sacral decubitus ulcer which has been seen in cared for by surgery in the past. He apparently had some debridement of the foot wound and [facility] and they have been using a wound VAC for his sacral wound. It appears that the patient has trouble tolerating enough p.o. to maintain caloric adequacy so he gets nighttime tube feeds. Unfortunately these tube feeds then translated into diarrhea which affects the wound VAC being able to be used properly. He does have some of these chronic wounds on his hip from pressure as well as the aguilar and foot. Some of these should hopefully be able to be healed especially with offloading and adequate nutrition and topical care. My concern is the sacral wound he is still quite significant and probably will not be able to be healed due to his overall debilitated state and his poor nutrition despite the tube feeds. We are being asked to consult for a colostomy which will most likely be a permanent diversion colostomy. Even still I have issues being confident with the sacral wound healing to complete skin growing even if we were able to do diversion. I think the risks of an operation with all his medical issues as also quite significant and he is concerned about having a permanent colostomy PMFSH Past Medical History Medical History Bilateral hydronephrosis Delirium Altered mental status Sepsis Atherosclerotic cardiovascular disease PAF (paroxysmal atrial fibrillation) NSTEMI (non-ST elevated myocardial infarction) Chronic renal disease, stage 3, moderately decreased glomerular filtration rate (GFR) between 30-59 mL/min/1.73 square meter Chest pain Heart failure Thyroid disease GERD (gastroesophageal reflux disease) On anticoagulant therapy COVID-19 vaccine series completed Symptomatic cholelithiasis HTN (hypertension) Hyperlipidemia Atrial fibrillation Sleep apnea Elevated PSA Facet arthropathy, cervical BPH loc w urin obs/LUTS Family History Family History Unknown No problems noted. Surgical History Surgical History S/P percutaneous endoscopic gastrostomy (PEG) tube placement Hx of tracheostomy S/P laparoscopic cholecystectomy Hx of cataract extraction History of total replacement of both hip joints Hx of cystoscopy H/O colonoscopy History of surgery Social History Social History Household Members: Spouse Housing: Long-Term Are you a primary care transitions nurse to a significant other at home: No Do you presently have visiting nurse or other home services: Yes ([employer] 8hrs a day) Alcohol intake: never Comment: patient is chair, bedbound Patient Tobacco Use Status: Never used Tobacco Smoked in Last 30 Days: No Use of substances other than those prescribed or required for medical reasons: No Currently Displaying Signs/Symptoms of Drug Intoxication Withdrawal: No Have you been hit, kicked, punched, or otherwise hurt by someone within the past year? If so, by whom?: No Do you feel safe in your current relationship?: No Is there a partner from a previous relationship who is making you feel unsafe now?: No Are you made to feel afraid or neglected: No Advance Directives: Yes Advance Directives on File: Yes Advance Directives Date on File: 03/07/24 Do you have a plan to hurt others: No Plan Recently lost weight without trying: No Eating poorly because of decreased appetite: No Nutrition Risks: No Nutritional Risk service: No Current occupational status: retired Meds Allergies Allergy/AdvReac Type Severity Reaction Status Date / Time ibuprofen [IBUPROFEN] Allergy Intermediate HIVES Verified 11/07/24 10:31 hydromorphone [From DILAUDID] AdvReac Intermediate ILEUS Verified 11/07/24 10:31 procaine [From Novocain] AdvReac Intermediate has no Verified 11/07/24 10:31 numbing effect-states monocain works narcotic pain meds AdvReac Intermediate does not Uncoded 11/07/24 10:31 relieve pain per patient Active Medications: Current Medications Amiodarone HCl (Amiodarone Hcl 200 Mg Tablet) 200 mg PO DAILY [facility] Last Admin: 11/09/24 08:23 Dose: 200 mg Amoxicillin/Clavulanate Potassium (Amoxicillin/Potassium Clav 875 Mg Tablet) 875 mg PO BID [facility] Last Admin: 11/09/24 08:23 Dose: 875 mg Atorvastatin Calcium (Atorvastatin Calcium 40 Mg Tablet) 40 mg PO DAILY [facility] Last Admin: 11/09/24 08:22 Dose: 40 mg Collagenase (Collagenase Clostridium Hist. 30 Gm Tube) 1 appl TOPICAL DAILY [facility]; Protocol Docusate Sodium (Docusate Sodium 100 Mg Capsule) 200 mg PO BID [facility] Last Admin: 11/09/24 08:43 Dose: Not Given Doxazosin Mesylate (Doxazosin Mesylate 2 Mg Tablet) 2 mg PO BEDTIME [facility]; Protocol Last Admin: 11/08/24 22:27 Dose: 2 mg Doxycycline Monohydrate (Doxycycline Monohydrate 100 Mg Capsule) 100 mg PO BID [facility] Last Admin: 11/09/24 08:23 Dose: 100 mg Ferrous Sulfate (Ferrous Sulfate 324 Mg Tablet.) 324 mg PO BID [facility] Last Admin: 11/09/24 08:23 Dose: 324 mg Gabapentin (Gabapentin 100 Mg Capsule) 200 mg PO BID [facility] Last Admin: 11/09/24 08:23 Dose: 200 mg Melatonin (Melatonin 3 Mg Tablet) 6 mg PO BEDTIME PRN PRN Reason: Insomnia Last Admin: 11/07/24 22:08 Dose: 6 mg Omeprazole (Omeprazole 20 Mg Capsule.) 20 mg PO BID@0630,1630 [facility] Last Admin: 11/09/24 15:17 Dose: 20 mg Oxycodone HCl (Oxycodone Hcl Immed Release 5 Mg Tablet) 10 mg PO Q4H PRN PRN Reason: Pain, Moderate(Pain Scale 4-6) Last Admin: 11/09/24 15:18 Dose: 10 mg Polyethylene Glycol (Polyethylene Glycol 3350 17 Gm Powd.Pack) 17 gm PO DAILY [facility] Last Admin: 11/09/24 08:43 Dose: Not Given Sodium Chloride (0.9 % Sodium Chloride Flush 3 Ml Syringe) 3 ml IVFLUSH QSHIFT [facility] Last Admin: 11/09/24 15:18 Dose: 3 ml Trazodone HCl (Trazodone Hcl 50 Mg Tablet) 50 mg PO BEDTIME [facility] Last Admin: 11/08/24 22:27 Dose: 50 mg Home Medications ?Medication ?Instructions ?Recorded ?Confirmed ?Last Taken ?Type acetaminophen 325 mg tablet 650 mg PO Q6H PRN Pain/Fever 06/26/24 11/07/24 Unknown History amiodarone 200 mg tablet 200 mg PO DAILY 06/26/24 11/07/24 Unknown History ascorbic acid (vitamin C) 500 mg 500 mg PO BID 06/26/24 11/07/24 Unknown History tablet bisacodyl 10 mg rectal suppository 10 mg KS DAILY PRN Constipation 06/26/24 11/07/24 Unknown History docusate sodium 100 mg tablet 200 mg PO BID 06/26/24 11/07/24 Unknown History famotidine 20 mg tablet 20 mg PO BEDTIME 06/26/24 11/07/24 Unknown History ferrous sulfate 325 mg (65 mg 325 mg PO BID 06/26/24 11/07/24 Unknown History iron) tablet gabapentin 100 mg capsule 200 mg PO BID 06/26/24 11/07/24 Unknown History levothyroxine 100 mcg tablet 100 mcg PO DAILY@0600 06/26/24 11/07/24 Unknown History polyvinyl alcohol 1.4 % eye drops 1 drp ophthalmic (eye) Q6H PRN Dry 06/26/24 11/07/24 Unknown History Eyes sennosides 8.6 mg tablet (senna) 17.2 mg PO BEDTIME 06/26/24 11/07/24 Unknown History thiamine HCl (vitamin B1) 100 mg 100 mg PO DAILY 06/26/24 11/07/24 Unknown History tablet (Vitamin B-1) Lactobacillus acidoph-L.bulgaricus 1 tab PO BID 08/11/24 11/07/24 Unknown History 1 million cell tablet collagenase clostridium histo. 250 1 appl topical DAILY 08/11/24 11/07/24 Unknown History unit/gram topical ointment (Santyl) menthol 5 % topical patch (Cold 1 patch topical DAILY 08/11/24 11/07/24 Unknown History and Hot (menthol)) ondansetron HCl 4 mg tablet 4 mg PO Q8H PRN Nausea And Vomiting 08/11/24 11/07/24 Unknown History sodium phosphates 19 gram-7 118 ml [place] DAILY PRN Constipation 08/11/24 11/07/24 Unknown History gram/118 mL enema (Fleet Enema) zinc acetate 50 mg (zinc) capsule 50 mg PO DAILY 08/11/24 11/07/24 Unknown History melatonin 5 mg tablet 10 mg PO BEDTIME PRN Insomnia 08/20/24 11/07/24 Unknown History tramadol 50 mg tablet 100 mg PO Q6H PRN Pain 08/30/24 11/07/24 Unknown History aspirin 81 mg tablet,delayed 81 mg PO DAILY 10/03/24 11/07/24 Unknown History release fluticasone propionate 50 2 spray intranasal DAILY 10/03/24 11/07/24 Unknown History mcg/actuation nasal spray,suspension magnesium hydroxide 400 mg/5 mL 30 ml PO DAILY PRN Constipation 10/03/24 11/07/24 Unknown History oral suspension (Milk of Magnesia) miconazole nitrate 2 % topical 1 appl topical BID 10/03/24 11/07/24 Unknown History cream pantoprazole 40 mg tablet,delayed 40 mg PO BID@0630,1630 10/03/24 11/07/24 Unknown History release trazodone 50 mg tablet 25 mg PO BID PRN DEPRESSION 10/03/24 11/07/24 Unknown History trazodone 50 mg tablet 50 mg PO BEDTIME 10/03/24 11/07/24 Unknown History amoxicillin 875 mg tablet 875 mg PO BID 11/07/24 11/07/24 Unknown History atorvastatin 40 mg tablet 40 mg PO DAILY 11/07/24 11/07/24 Unknown History doxazosin 2 mg tablet 2 mg PO BEDTIME 11/07/24 11/07/24 Unknown History doxycycline hyclate 100 mg tablet 100 mg PO BID 11/07/24 11/07/24 Unknown History heparin, porcine (PF) 5,000 5,000 unit subcut Q8H 11/07/24 11/07/24 Unknown History unit/0.5 mL injection syringe sodium chloride-hypochlorous acid 1 irrig irrigation QSHIFT PRN 11/07/24 11/07/24 Unknown History 0.033 % irrigation solution (Vashe) WOUND CLEANING Physical Exam Vital Signs: Vital Signs: Last Vital Signs Temp 97.8 F 11/09/24 19:17 Pulse 77 11/09/24 19:17 Resp 18 11/09/24 19:17 BP 113/55 L 11/09/24 19:17 Pulse Ox 96 11/09/24 19:17 O2 Del Method Room Air 11/09/24 19:17 BMI result Body Mass Index 31.4 Results Labs 11/09/24 05:21 11/09/24 05:21 Labs: Abnormal lab results 11/09/24 Range/Units 05:21 RBC 2.78 L (4.60-5.80) X10*6/uL Hgb 7.5 L (14.0-18.0) g/dl Hct 24.3 L (42.0-52.0) % MCHC 30.9 L (31.0-36.0) g/dl RDW 18.2 H (11.0-16.0) % MPV 9.1 L (9.4-12.4) fL Immature Gran % (Auto) 0.8 H (0.0-0.4) % Lymph % (Auto) 19.7 L (20-40) % Isabela % (Auto) 13.7 H (2-11) % Eos % (Auto) 4.6 H (0-4) % Abs Immat Gran (auto) 0.05 H (0.00-0.03) X10*3/uL Chloride 111 H (96-108) mmol/L Anion Gap 10 L (12-20) BUN 33 H (9-16) mg/dL Fasting Glucose 130 H (60-99) mg/dL Calcium 8.0 L (8.4-10.2) mg/dL AST 47 H (5-37) U/L Total Protein 5.6 L (6.5-8.0) g/dL Albumin 1.8 L (3.5-5.0) g/dL Short CBC 11/09/24 Range/Units 05:21 WBC 6.6 (4.8-10.8) X10*3/uL Hgb 7.5 L (14.0-18.0) g/dl Hct 24.3 L (42.0-52.0) % Plt Count 294 (160-400) X10*3/uL BMP 11/09/24 05:21 Sodium 142 Potassium 4.0 Chloride 111 H Carbon Dioxide 25 BUN 33 H Creatinine 1.05 Calcium 8.0 L Liver Function 11/09/24 Range/Units 05:21 Total Bilirubin 0.2 (0.0-1.0) mg/dL AST 47 H (5-37) U/L ALT 40 (0-40) U/L Alkaline Phosphatase 82 (39-117) U/L Albumin 1.8 L (3.5-5.0) g/dL All other labs normal. Assessment and Plan (1) Decubitus ulcer of sacral region, stage 4: Status: Acute Plan 84-year-old male with multiple medical problems but most importantly and this consultation is his sacral wound. I think that even under optimum Care the chances of this healing to completion are extremely low. To put him through a high-risk procedure for low potential improvement to completion of this wound with a wound VAC would probably not be the correct solution. The only thing worse than no wound VAC is a wound VAC not being used appropriately as this increases chances of the wound getting infected soft tissue breakdown and cellulitis. Now he is concerned about undergoing a bigger operation and a permanent diversion colostomy. I think with the balance of expectations but still trying to strive towards quality of care as he is quite competent and mentally present despite his body fit physically giving up I think that an operation would be too risky. I am not convinced that this wound VAC is going to work anyway to completion. A simpler solution would be to carry out wet-to-dry dressings daily and this will allow the area to be clean and changed with stooling in a relatively quick and easy fashion. Next step would be to monitor his tube feeds and maybe do calorie counts. We will try to optimize his p.o. intake for full caloric nutrition and maybe change his tube feeds to a formula which does not create diarrhea. May consider also using binding agents such as Lomotil to slow down his diarrhea issues. In regard to the other smaller wounds like on his hip and aguilar would recommend Santyl for now and then re-evaluate. 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 Despite really liking the function of the wound VAC in the sacral decubitus wound I think in this patient the benefit may not be as obviously good as we would like it to be. Sometimes a simple care plan like the wet-to-dry would be most appropriate for him and focus on his nutrition and controlling of stooling. Diversion colostomy an operative procedure maybe little higher risk on this patient for the benefit that we are trying 4. He understands and agrees to not undergo diversion and just try this for now. We will consider adding Lomotil to his daily meds. Procedures Date of Service Date of Service: 11/09/24
[2024-11-09] MEDS: traZODone HCL 50 MG TABLET PO (19:46)
[2024-11-09] MEDS: Doxazosin Mesylate 2 MG TABLET PO (19:46)
--- NOTE | 2024-11-10 00:21 | PC.NURSE ---
took over care of pt at 1900 with numerous attempt to change pt position with pt refusing most of time reporting not now later not tonight and etc.... pt educated multiple times with pt cont to refuse most of times.
[2024-11-10] MEDS: Omeprazole 20 MG CAPSULE.DR PO (05:29)
[2024-11-10 07:07] LABS: Hematocrit 24.7 % (42.0-52.0); Hemoglobin 7.3 g/dl (14.0-18.0); Mean Corpuscular HGB Conc 29.6 g/dl (31.0-36.0); Mean Corpuscular Hemoglobin 26.4 pg (27.0-33.0); Mean Corpuscular Volume 89.5 fL (80.0-98.0); Mean Platelet Volume 9.2 fL (9.4-12.4); Platelet Count 298 X10*3/uL (160-400); Red Blood Count 2.76 X10*6/uL (4.60-5.80); Red Cell Distribution Width 18.1 % (11.0-16.0); White Blood Count 6.5 X10*3/uL (4.8-10.8)
[2024-11-10 07:27] VITALS: BP 120/57; PULSE 67; RESP 18; TEMP 36; O2SAT 95
[2024-11-10] MEDS: Amiodarone HCL 200 MG TABLET PO (08:44)
[2024-11-10] MEDS: Atorvastatin Calcium 40 MG TABLET PO (08:44)
[2024-11-10] MEDS: Amoxicillin/Potassium Clav 875 MG TABLET PO (08:44)
[2024-11-10] MEDS: Doxycycline Monohydrate 100 MG CAPSULE PO (08:44)
[2024-11-10] MEDS: Gabapentin 100 MG CAPSULE 200 MG PO (08:44)
[2024-11-10] MEDS: Collagenase Clostridium Hist. 30 GM TUBE 1 APPL TOPICAL (08:45)
[2024-11-10] MEDS: 0.9 % Sodium Chloride Flush 3 ML SYRINGE IVFLUSH (08:45)
[2024-11-10] MEDS: Ferrous Sulfate 324 MG TABLET.DR PO (08:45)
--- NOTE | 2024-11-10 08:50 | PM.DS ---
DS: Providers Provider Date of Service: 11/10/24 Date of admission: 11/07/24 13:10 Date of discharge: 11/10/24 Primary care physician: Unknown Physician Consults: 11/07/24 17:12 Consult to Wound Care Routine Reason for consultation: Sacrum, left hip, buttocks, bilateral lower extremities. 11/08/24 14:00 Consult to General Surgery Routine Consulting Provider: [facility] [place] General Surgeons Reason for consultation: Sacral decubitus; question diverting colostomy Has provider been notified: No DS: Diagnosis Discharge Diagnosis (1) Decubitus ulcer of sacral region, stage 4: Status: Acute DS: Summary Hospital Course Hospital Course: admission hpi Attending physician on admission: Dereje Loyola Chief Complaint: Acute anemia Pt is an 84-year-old female with a PMH significant for?paroxysmal AFib no longer on Eliquis due to recurrent anemia hx of ablation, cardiomyopathy, HFrEF (40-45%), HTN, HLD, nephrolithiasis, and 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 Pt previously admitted to the hospital approximately 1 month ago on 10/03-10/04 for similar symptoms of acute on chronic anemia and was transfused 1 unit PRBCs. Pt reports has been in his normal state of health since that time. Denies lightheadedness, dizziness. No melena or hematochezia. Denies hemoptysis or hematemesis. No nausea, vomiting, abdominal pain or GERD like symptoms. Of note, pt reports was started on heparin subcu injections 4-5 days ago for an unknown reason. In the ED pt was tachypneic up to 23 and soft BP as low as 100/40. Labs were significant for H&H 6.7/22.5 (baseline around 8.0/25) and potassium 5.2 with slight hemolysis. EKG demonstrated sinus rhythm with 1st degree AV block without significant ischemic changes, similar to prior. Pt was treated in the ED with 1 unit PRBCs. Pt is admitted to the hospital for treatment and further evaluation of acute on chronic anemia. 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 Pt is admitted to the hospital for treatment and further evaluation of acute on chronic anemia. Acute on chronic blood loss anemia, hematocrit 22 on presentation and now 24 after 1 unit of RBC and appear stable. Chronic decubitus ulcers, bilateral ulcers on heels, stage IV sacral decubitus ulcer. See, by Surgery with the following assessment and recommendation: 84-year-old male with multiple medical problems but most importantly and this consultation is his sacral wound. I think that even under optimum Care the chances of this healing to completion are extremely low. To put him through a high-risk procedure for low potential improvement to completion of this wound with a wound VAC would probably not be the correct solution. The only thing worse than no wound VAC is a wound VAC not being used appropriately as this increases chances of the wound getting infected soft tissue breakdown and cellulitis. Now he is concerned about undergoing a bigger operation and a permanent diversion colostomy. I think with the balance of expectations but still trying to strive towards quality of care as he is quite competent and mentally present despite his body fit physically giving up I think that an operation would be too risky. I am not convinced that this wound VAC is going to work anyway to completion. A simpler solution would be to carry out wet-to-dry dressings daily and this will allow the area to be clean and changed with stooling in a relatively quick and easy fashion. Next step would be to monitor his tube feeds and maybe do calorie counts. We will try to optimize his p.o. intake for full caloric nutrition and maybe change his tube feeds to a formula which does not create diarrhea. May consider also using binding agents such as Lomotil to slow down his diarrhea issues. In regard to the other smaller wounds like on his hip and aguilar would recommend Santyl for now and then re-evaluate. 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 Despite really liking the function of the wound VAC in the sacral decubitus wound I think in this patient the benefit may not be as obviously good as we would like it to be. Sometimes a simple care plan like the wet-to-dry would be most appropriate for him and focus on his nutrition and controlling of stooling. Diversion colostomy an operative procedure maybe little higher risk on this patient for the benefit that we are trying 4. He understands and agrees to not undergo diversion and just try this for now. We will consider adding Lomotil to his daily meds Bottom line: Surgery advises againts diverting colostomy and does't thin Wound vac is beneficial at this this time and rather recommends wet-to-dry dressing. To complete 10 days of amoxi and oxy CKD 3 -at baseline -follow renals/divalents Paroxysmal AFib, rate controlled and not anticoagulated. Time Attestation Discharge Coordination Time (in mins): 45 Quality: Safe Use of Opioids Does Pt have an Active Cancer Diagnosis on the Problem List?: No Quality: Stroke Does the patient have a stroke diagnosis?: No Physical Exam Vital Signs: Vital Signs: Last Vital Signs Temp 96.8 F 11/10/24 07:27 Pulse 67 11/10/24 07:27 Resp 18 11/10/24 07:27 BP 120/57 L 11/10/24 07:27 Pulse Ox 95 11/10/24 07:27 O2 Del Method Room Air 11/10/24 07:27 BMI result Body Mass Index 31.4 DS: Data Data Completed and Pending Completed studies during hospitalization [Text1]: Procedures Assistance with Respiratory Ventilation, Less than 24 Consecutive Hours, Continuous Positive Airway Pressure (07/07/22) Bypass Trachea to Cutaneous with Tracheostomy Device, Open Approach (02/09/24) Dilation of Left Ureter with Intraluminal Device, Via Natural or Artificial Opening Endoscopic (07/07/22) Drainage of Left Main Bronchus, Via Natural or Artificial Opening Endoscopic (02/09/24) Drainage of Right Main Bronchus, Via Natural or Artificial Opening Endoscopic (02/09/24) Extraction of Left Hip Muscle, Open Approach (08/11/24) Extraction of Right Hip Muscle, Open Approach (08/11/24) Fluoroscopy of Left Kidney, Ureter and Bladder using Low Osmolar Contrast (07/07/22) Insertion of Endotracheal Airway into Trachea, Via Natural or Artificial Opening (02/09/24) Insertion of Feeding Device into Stomach, Percutaneous Approach (02/09/24) Insertion of Infusion Device into Right Atrium, Percutaneous Approach (02/09/24) Insertion of Infusion Device into Right Cephalic Vein, Percutaneous Approach (06/26/24) Insertion of Infusion Device into Superior Vena Cava, Percutaneous Approach (08/29/24) Insertion of Infusion Device into Upper Vein, Percutaneous Approach (02/09/24) Removal of Infusion Device from Upper Vein, External Approach (02/09/24) Repair Neck, Stoma, External Approach (02/09/24) Respiratory Ventilation, 24-96 Consecutive Hours (02/09/24) Respiratory Ventilation, Greater than 96 Consecutive Hours (02/09/24) Gnosticism of Cardiac Rhythm, Single (07/07/22) Transfusion of Nonautologous Red Blood Cells into Peripheral Vein, Percutaneous Approach (08/29/24) Ultrasonography of Superior Vena Cava, Guidance (08/29/24) Labs on day of discharge: Laboratory Results - last 24 hr 11/10/24 06:23 WBC 6.5 RBC 2.76 L Hgb 7.3 L Hct 24.7 L MCV 89.5 MCH 26.4 L MCHC 29.6 L RDW 18.1 H Plt Count 298 MPV 9.2 L Absolute Nucleated RBC 0.000 Nucleated RBC % (auto) 0.0 Discharge Plan Discharge Anticipated Discharge Date/Time: 11/10/24 11:26 Patient Disposition: [facility] Discharge Diagnosis: Acute on chronic anemia, chronic decub ulcer with osteomylitis Referrals: [facility] [Outside] Nirali Gonzalez MD [Physician] - 1 Week Physician,Unknown J [Primary Care Provider] - 1 Week Discharge Medications: New diphenoxylate-atropine 2.5-0.025 mg/5 mL liquid 5 ml PO DAILY Qty: 60 0RF Rx Instructions: hold for constipation Continued polyethylene glycol 3350 17 gram Powder In Packet 17 g PO DAILY Qty: 30 0RF Rx Instructions: Hold for loose stool. sennosides [senna] 8.6 mg Tablet 17.2 mg PO BEDTIME Rx Instructions: HOLD FOR LOOSE STOOL polyvinyl alcohol 1.4 % Drops 1 drp OPHTHALMIC (EYE) Q6H PRN (Reason: Dry Eyes) Rx Instructions: Both eyes thiamine HCl (vitamin B1) [Vitamin B-1] 100 mg Tablet 100 mg PO DAILY levothyroxine 100 mcg Tablet 100 mcg PO DAILY@0600 famotidine 20 mg Tablet 20 mg PO BEDTIME ascorbic acid (vitamin C) 500 mg Tablet 500 mg PO BID bisacodyl 10 mg Suppository 10 mg AZ DAILY PRN (Reason: Constipation) Rx Instructions: If MoM not effective. ferrous sulfate 325 mg (65 mg iron) Tablet 325 mg PO BID gabapentin 100 mg Capsule 200 mg PO BID docusate sodium 100 mg Tablet 200 mg PO BID acetaminophen 325 mg tablet 650 mg PO Q6H PRN (Reason: Pain/Fever) amiodarone 200 mg tablet 200 mg PO DAILY finasteride 5 mg Tablet 5 mg PO DAILY Qty: 0 0RF melatonin 5 mg tablet 10 mg PO BEDTIME PRN (Reason: Insomnia) zinc acetate 50 mg (zinc) Capsule 50 mg PO DAILY ondansetron HCl 4 mg Tablet 4 mg PO Q8H PRN (Reason: Nausea And Vomiting) Fleet Enema 19-7 gram/118 mL Enema 118 ml [place] DAILY PRN (Reason: Constipation) Santyl 250 unit/gram Ointment 1 appl TOPICAL DAILY Rx Instructions: apply to RIGHT HEEL Cold and Hot (menthol) 5 % Adhesive Patch,Medicated 1 patch TOPICAL DAILY Rx Instructions: apply to left knee Lactobacillus acidoph-L.bulgar 1 million cell Tablet 1 tab PO BID trazodone 50 mg Tablet 50 mg PO BEDTIME trazodone 50 mg Tablet 25 mg PO BID PRN (Reason: DEPRESSION) Rx Instructions: TAKE IN ADDITION TO 50 MG BEDTIME DOSE UNTIL 11/16/24 miconazole nitrate 2 % Cream 1 appl TOPICAL BID Rx Instructions: apply to coccyx aspirin 81 mg Tablet,Delayed Release (Dr/Ec) 81 mg PO DAILY magnesium hydroxide [Milk of Magnesia] 400 mg/5 mL Suspension 30 ml PO DAILY PRN (Reason: Constipation) pantoprazole 40 mg Tablet,Delayed Release (Dr/Ec) 40 mg PO BID@0630,1630 fluticasone propionate 50 mcg/actuation Donaldson,Suspension 2 spray INTRANASAL DAILY Rx Instructions: administer into each nostril amoxicillin 875 mg tablet 875 mg PO BID Rx Instructions: TO TAKE THROUGH 11/30/24 atorvastatin 40 mg tablet 40 mg PO DAILY doxycycline hyclate 100 mg tablet 100 mg PO BID Rx Instructions: TAKE THROUGH 11/22/24 heparin, porcine (PF) 5,000 unit/0.5 mL Syringe 5,000 unit SUBCUT Q8H Rx Instructions: FOR PROPHYLAXIS RELATED TO OSTEOMYELITIS Vashe 0.033 % Irrigation Solution 1 irrig IRRIGATION QSHIFT PRN (Reason: WOUND CLEANING) doxazosin 2 mg tablet 2 mg PO BEDTIME Protocol: Hold for SBP< HOLD for SBP < : 90 tramadol 50 mg Tablet 100 mg PO Q6H PRN (Reason: Pain) Discharge Orders: Discharge Order (Routine); Ordered 11/10/24 Ordered By: Dami Jimenez Diet: TUBE FEED BEFORE Activity on Discharge: As tolerated Stand Alone Forms: Patient Portal Discharge page Print Language: Faroese Care Plan Goals: prevent worening of pressure ulcers Health Concerns: chronic anemia chronic decub ulcers Plan of Treatment: to complete outpatient doxy through november 22 and to complete Augentin through 11/30 as previously prescribed outpatient follow up with the wound care Wet to dry dressing to decub ulcers Assessment: see above Discharge Date/Time: 11/10/24 12:47
--- NOTE | 2024-11-10 11:07 | MHC.CM.PN ---
Addendum entered by Kelly Dang 11/10/24 12:05: DAUGHTER/HCP, MICHELLE [phone], NOTIFIED OF DC VIA T/C. Original Note: PT IS MEDICALLY CLEARED TO RETURN TO [facility] TODAY BLS TRANSPORT BOOKED WITH [facility] FOR 1230 HOURS
[2024-11-10] MEDS: oxyCODONE HCl Immed Release 5 MG TABLET 10 MG PO (12:15)
[2024-11-10 12:18] VITALS: BP 113/52; PULSE 76; RESP 16; TEMP 36.1; O2SAT 95
== END 2024-11-10 12:47 | disposition skilled nursing facility (03) | DRG 811 ==
LOC: HO.ED 11:04 → HO.EDOVER 13:31 → HO.S3 14:37
PROVIDERS: Student in an Organized Health Care Education/Training Program; Admitting Provider Hospitalist; Emergency Provider Emergency Medicine; PCP Internal Medicine; Visit Provider Internal Medicine
DX: D62 Acute posthemorrhagic anemia (principal); L89.154 Pressure ulcer of sacral region, stage 4; I13.0 Hypertensive heart and chronic kidney disease with heart failure and stage 1 through stage 4 chronic kidney disease, or unspecified chronic kidney disease; I50.22 Chronic systolic (congestive) heart failure; M46.28 Osteomyelitis of vertebra, sacral and sacrococcygeal region; I42.9 Cardiomyopathy, unspecified; N18.30 Chronic kidney disease, stage 3 unspecified; I48.0 Paroxysmal atrial fibrillation; E78.5 Hyperlipidemia, unspecified; Z74.01 Bed confinement status; Z79.51 Long term (current) use of inhaled steroids; Z79.82 Long term (current) use of aspirin; Z79.890 Hormone replacement therapy; Z79.899 Other long term (current) drug therapy
CPT/HCPCS: 36415; 80048; 80053; 85025; 85027; 86850; 86900; 86901; 86923; 93005; 99285; P9016

== ENCOUNTER → 2024-11-07 12:59 | Outpatient (BNV) | payer MEDICARE, SELFPAY | PROVIDERS: Admitting Provider Hospitalist; Emergency Provider Emergency Medicine; Visit Provider Internal Medicine Cardiovascular Disease | DX: I44.0 Atrioventricular block, first degree (principal) | CPT/HCPCS: 93010 ==

== ENCOUNTER → 2024-11-07 13:10 | Outpatient (BNV) | payer MEDICARE, SELFPAY | PROVIDERS: Admitting Provider Hospitalist; Emergency Provider Emergency Medicine; Visit Provider Student in an Organized Health Care Education/Training Program | DX: L89.154 Pressure ulcer of sacral region, stage 4 (principal) | CPT/HCPCS: 99223; 99232; 99239 ==

== ENCOUNTER → 2024-11-07 13:10 | Outpatient (BNV) | payer MEDICARE, SELFPAY | PROVIDERS: Admitting Provider Hospitalist; Emergency Provider Emergency Medicine; PCP Internal Medicine; Visit Provider Surgery | DX: L89.154 Pressure ulcer of sacral region, stage 4 (principal) | CPT/HCPCS: 99222 ==

== ENCOUNTER 2024-11-14 12:07 | Emergency (ER) | payer MEDICARE, SELFPAY ==
[2024-11-14 12:15] VITALS: BP 128/55; PULSE 90; O2SAT 96
[2024-11-14 12:17] VITALS: BP 109/49; PULSE 90; RESP 16; TEMP 36.9; O2SAT 94; BMI 30.1
[2024-11-14 12:46] LABS: MANUAL DIFF FLAG NO
[2024-11-14 12:50] LABS: Basophils Percent Auto 0.3 % (0-2); Eosinophils Absolute Auto 0.2 X10*3/uL (0.0-0.4); Eosinophils Percent Auto 2.6 % (0-4); Hematocrit 24.2 % (42.0-52.0); Hemoglobin 7.4 g/dl (14.0-18.0); Imm Gran Abs Auto 0.04 X10*3/uL (0.00-0.03); Imm Gran Pct Auto 0.6 % (0.0-0.4); Lymphocytes Absolute Auto 1.2 X10*3/uL (1.2-4.9); Mean Corpuscular HGB Conc 30.6 g/dl (31.0-36.0); Mean Corpuscular Volume 88.3 fL (80.0-98.0); Mean Platelet Volume 8.9 fL (9.4-12.4); Monocytes Absolute Auto 0.5 X10*3/uL (0.1-1.2); Monocytes Percent Auto 7.8 % (2-11); Neutrophils Absolute Auto 4.6 x10*3/uL (2.0-8.3); Neutrophils Percent Auto 69.7 % (45-73); Platelet Count 261 X10*3/uL (160-400); Red Blood Count 2.74 X10*6/uL (4.60-5.80); Red Cell Distribution Width 17.6 % (11.0-16.0); White Blood Count 6.5 X10*3/uL (4.8-10.8)
[2024-11-14 12:56] LABS: INTERNATIONAL NORM RATIO 1.1 (0.9-1.1); Prothrombin Time 13.3 SEC (10.9-12.4)
[2024-11-14 13:31] LABS: Alanine Aminotransferase 49 U/L (0-40); Albumin Level 2.1 g/dL (3.5-5.0); Alkaline Phosphatase 96 U/L (39-117); Anion Gap 14 (12-20); Aspartate Amino Transferase 70 U/L (5-37); Bilirubin Total 0.2 mg/dL (0.0-1.0); Blood Urea Nitrogen 34 mg/dL (9-16); Calcium 8.3 mg/dL (8.4-10.2); Carbon Dioxide 24 mmol/L (22-29); Chloride 106 mmol/L (96-108); Creatinine Clr Calc Pharmacy 66.2; Estimated Glomerular Filt Rate > 60; Glucose Random 136 mg/dL (60-115); Potassium 4.1 mmol/L (3.3-5.1); Sodium 140 mmol/L (135-145)
--- NOTE | 2024-11-14 13:55 | ED.GENADULT ---
HPI - General Adult General Chief complaint: Recheck/Abnormal Lab/Rx Stated complaint: ABN LABS FROM SNF PER EMS Time Seen by Provider: 11/14/24 13:52 Source: patient, family (Daughter), EMS and old records reviewed Mode of arrival: EMS Limitations: no limitations History of Present Illness ED Provider: DR. Cruz HPI narrative: 84-year-old male with PMH significant for paroxysmal AFib no longer on Eliquis, s/p multiple cardiac ablation, cardiomyopathy, HFrEF 45%, HTN, mixed HLD, nephrolithiasis, stage IV sacral decubitus ulcer with recent vertebral osteomyelitis patient is coming from [facility] and rehab for evaluation after was found to have a low hemoglobin of 6.7. Patient received blood transfusion on 11/07/2024. No chest pain, no shortness of breath, no rectal bleeding, no abdominal pain, patient has no symptoms except for his usual regular chronic pain that he is asking for oxycodone. Patient apparently complaining of was been seen to the hospital with no symptoms or complaint, patient and family are considering hospice service to do not transfer the patient to the hospital in the future. Related Data Home Medications ?Medication ?Instructions ?Recorded ?Confirmed acetaminophen 325 mg tablet 650 mg PO Q6H PRN Pain/Fever 06/26/24 11/07/24 amiodarone 200 mg tablet 200 mg PO DAILY 06/26/24 11/07/24 ascorbic acid (vitamin C) 500 mg 500 mg PO BID 06/26/24 11/07/24 tablet bisacodyl 10 mg rectal suppository 10 mg NV DAILY PRN Constipation 06/26/24 11/07/24 docusate sodium 100 mg tablet 200 mg PO BID 06/26/24 11/07/24 famotidine 20 mg tablet 20 mg PO BEDTIME 06/26/24 11/07/24 ferrous sulfate 325 mg (65 mg 325 mg PO BID 06/26/24 11/07/24 iron) tablet gabapentin 100 mg capsule 200 mg PO BID 06/26/24 11/07/24 levothyroxine 100 mcg tablet 100 mcg PO DAILY@0600 06/26/24 11/07/24 polyvinyl alcohol 1.4 % eye drops 1 drp ophthalmic (eye) Q6H PRN Dry 06/26/24 11/07/24 Eyes sennosides 8.6 mg tablet (senna) 17.2 mg PO BEDTIME 06/26/24 11/07/24 thiamine HCl (vitamin B1) 100 mg 100 mg PO DAILY 06/26/24 11/07/24 tablet (Vitamin B-1) Lactobacillus acidoph-L.bulgaricus 1 tab PO BID 08/11/24 11/07/24 1 million cell tablet collagenase clostridium histo. 250 1 appl topical DAILY 08/11/24 11/07/24 unit/gram topical ointment (Santyl) menthol 5 % topical patch (Cold 1 patch topical DAILY 08/11/24 11/07/24 and Hot (menthol)) ondansetron HCl 4 mg tablet 4 mg PO Q8H PRN Nausea And Vomiting 08/11/24 11/07/24 sodium phosphates 19 gram-7 118 ml NV DAILY PRN Constipation 08/11/24 11/07/24 gram/118 mL enema (Fleet Enema) zinc acetate 50 mg (zinc) capsule 50 mg PO DAILY 08/11/24 11/07/24 melatonin 5 mg tablet 10 mg PO BEDTIME PRN Insomnia 08/20/24 11/07/24 tramadol 50 mg tablet 100 mg PO Q6H PRN Pain 08/30/24 11/07/24 aspirin 81 mg tablet,delayed 81 mg PO DAILY 10/03/24 11/07/24 release fluticasone propionate 50 2 spray intranasal DAILY 10/03/24 11/07/24 mcg/actuation nasal spray,suspension magnesium hydroxide 400 mg/5 mL 30 ml PO DAILY PRN Constipation 10/03/24 11/07/24 oral suspension (Milk of Magnesia) miconazole nitrate 2 % topical 1 appl topical BID 10/03/24 11/07/24 cream pantoprazole 40 mg tablet,delayed 40 mg PO BID@0630,1630 10/03/24 11/07/24 release trazodone 50 mg tablet 25 mg PO BID PRN DEPRESSION 10/03/24 11/07/24 trazodone 50 mg tablet 50 mg PO BEDTIME 10/03/24 11/07/24 amoxicillin 875 mg tablet 875 mg PO BID 11/07/24 11/07/24 atorvastatin 40 mg tablet 40 mg PO DAILY 11/07/24 11/07/24 doxazosin 2 mg tablet 2 mg PO BEDTIME 11/07/24 11/07/24 doxycycline hyclate 100 mg tablet 100 mg PO BID 11/07/24 11/07/24 heparin, porcine (PF) 5,000 5,000 unit subcut Q8H 11/07/24 11/07/24 unit/0.5 mL injection syringe sodium chloride-hypochlorous acid 1 irrig irrigation QSHIFT PRN 11/07/24 11/07/24 0.033 % irrigation solution (Vashe) WOUND CLEANING Previous Rx's ?Medication ?Instructions ?Recorded polyethylene glycol 3350 17 gram 17 g PO DAILY #30 ea 03/06/24 oral powder packet finasteride 5 mg tablet 5 mg PO DAILY #0 tabs 07/02/24 diphenoxylate-atropine 2.5 5 ml PO DAILY #60 mL 11/10/24 mg-0.025 mg/5 mL oral liquid Allergies Allergy/AdvReac Type Severity Reaction Status Date / Time ibuprofen [IBUPROFEN] Allergy Intermediate HIVES Verified 11/14/24 12:20 hydromorphone [From DILAUDID] AdvReac Intermediate ILEUS Verified 11/14/24 12:20 procaine [From Novocain] AdvReac Intermediate has no Verified 11/14/24 12:20 numbing effect-states monocain works narcotic pain meds AdvReac Intermediate does not Uncoded 11/14/24 12:20 relieve pain per patient Review of Systems Review of Systems: All other systems are reviewed and are negative Constitutional: Reports as per HPI and Reports no additional constitutional complaints Eyes: Reports as per HPI and Reports no additional eye complaints Reports system reviewed and no additional complaints, except as documented Cardiovascular: Reports as per HPI and Reports no additional cardiovascular complaints Respiratory: Reports as per HPI and Reports no additional respiratory complaints Gastrointestinal: Reports as per HPI and Reports no additional gastrointestinal complaints Genitourinary: Reports no additional female genitourinary complaints Musculoskeletal: Reports no additional musculoskeletal complaints Skin/Breast: Reports system reviewed and no additional complaints, except as docu Psychiatric: Reports no additional psychiatric complaints Endocrine: Reports no additional endocrine complaints Hematologic/Lymphatic: Reports no additional hematologic/lymphatic complaints Allergic/Immunologic: Reports no additional allergic/immunologic complaints Reports system reviewed and no additional complaints, except as documented and Reports Abnormal speech present [facility] Past Medical History Medical History Bilateral hydronephrosis Delirium Altered mental status Sepsis Atherosclerotic cardiovascular disease PAF (paroxysmal atrial fibrillation) NSTEMI (non-ST elevated myocardial infarction) Chronic renal disease, stage 3, moderately decreased glomerular filtration rate (GFR) between 30-59 mL/min/1.73 square meter Chest pain Heart failure Thyroid disease GERD (gastroesophageal reflux disease) On anticoagulant therapy COVID-19 vaccine series completed Symptomatic cholelithiasis HTN (hypertension) Hyperlipidemia Atrial fibrillation Sleep apnea Elevated PSA Facet arthropathy, cervical BPH loc w urin obs/LUTS Surgical History S/P percutaneous endoscopic gastrostomy (PEG) tube placement Hx of tracheostomy S/P laparoscopic cholecystectomy Hx of cataract extraction History of total replacement of both hip joints Hx of cystoscopy H/O colonoscopy History of surgery Family History Family History Unknown No problems noted. Social History Social History Household Members: Spouse Housing: Longterm Are you a primary care consultant to a significant other at home: No Do you presently have visiting nurse or other home services: Yes (PRIVATE ADVISOR 8hrs a day) Alcohol intake: never Comment: patient is chair, bedbound Patient Tobacco Use Status: Never used Tobacco Smoked in Last 30 Days: No Use of substances other than those prescribed or required for medical reasons: No Advance Directives: Yes Advance Directives on File: Yes Advance Directives Date on File: 03/07/24 Do you have a plan to hurt others: No Plan service: No Current occupational status: retired Physical Exam ED Vital Signs: Vital Signs - 24 hr 11/14/24 12:17 11/14/24 14:00 Temperature 98.4 F 98.6 F Pulse Rate 90 85 Respiratory Rate 16 13 Blood Pressure 109/49 L 124/50 L Pulse Oximetry 94 94 Oxygen Delivery Method Room Air Room Air BMI result Body Mass Index 30.1 Vital signs have been reviewed and appear to be correct. Blood pressure elevated. Heart rate normal. Respiratory rate normal. Temperature normal. Oxygen saturation normal. Appearance: Alert. Oriented X3. No acute distress. Head: Normal external exam. Normocephalic. Atraumatic. No Hernandez signs noted. No raccoon eyes noted Eyes: PERRLA. EOMI. Conjunctiva and sclera normal. Eyelids normal. ENT: TM's Normal. Pharynx normal. Uvula midline. Moist mucous membranes. No trismus noted. No drooling noted. No muffled voice noted. Neck: Normal inspection. Neck supple. FROM. No adenopathy. Thyroid Normal. No meningeal signs. No neck mass noted. CVS: Normal heart rate and rhythm. Heart sound normal. No murmurs noted. Pulses normal throughout. Respiratory: No respiratory distress. Painless inspiration. Breath sounds normal. No wheezes/rales/rhonchi noted. Chest nontender. No accessory muscle usage noted or decreased air movement noted. Abdomen: Soft and nontender. Bowel sounds normal in all 4 quadrants. No distention noted. No organomegaly noted. No visible injury noted. Rectal exam: Brown stool guaiac negative. Back: No CVA tenderness. Full range of motion noted. Skin: Skin warm and dry. Normal skin color. Normal skin turgor. No rashes/lesions/lacerations noted. Extremities: No lower extremity edema. Extremities exhibit normal range of motion. Extremities nontender. Neuro: Oriented X 3. Cranial nerve exam: II-XII are grossly intact No motor deficit. No sensory deficit. Reflexes normal. Course Reevaluation(s) Reevaluation #1: 84-year-old male was chronic anemia presented from nursing for no hemoglobin of 6.7, according to our hospital labs hemoglobin is 7.4, patient is asymptomatic at this point, there is no indication for blood transfusion, patient will be returned back to the assisted. Time: 15:00 Medications Administered Discontinued Medications Generic Name Dose Route Start Last Admin Trade Name Freq PRN Reason Stop Dose Admin Oxycodone HCl 10 mg 11/14/24 14:26 11/14/24 14:33 Oxycodone Hcl Immed Release 5 Mg Tablet PO 11/14/24 14:27 10 mg ONCE ONE Administration Medical Decision Making Differential Diagnosis Differential Diagnoses: The differential diagnosis associated with the presentation includes (Rectal bleeding, anemia, pain control, electrolyte derangement.) Admission/Observation Consideration of admission/observation: Escalation of care including admission/observation considered Lab Data MDM Lab Attestation statement: I reviewed the patient's lab results. 11/14/24 14:35 11/14/24 13:00 Labs: Lab Results 11/14/24 11/14/24 11/14/24 Range/Units 12:37 13:00 13:12 WBC 6.5 (4.8-10.8) X10*3/uL RBC 2.74 L (4.60-5.80) X10*6/uL Hgb 7.4 L (14.0-18.0) g/dl Hct 24.2 L (42.0-52.0) % MCV 88.3 (80.0-98.0) fL MCH 27.0 (27.0-33.0) pg MCHC 30.6 L (31.0-36.0) g/dl RDW 17.6 H (11.0-16.0) % Plt Count 261 (160-400) X10*3/uL MPV 8.9 L (9.4-12.4) fL Immature Gran % (Auto) 0.6 H (0.0-0.4) % Neut % (Auto) 69.7 (45-73) % Lymph % (Auto) 19.0 L (20-40) % [place] % (Auto) 7.8 (2-11) % Eos % (Auto) 2.6 (0-4) % Baso % (Auto) 0.3 (0-2) % Lymph # (Auto) 1.2 (1.2-4.9) X10*3/uL [place] # (Auto) 0.5 (0.1-1.2) X10*3/uL Eos # (Auto) 0.2 (0.0-0.4) X10*3/uL Baso # (Auto) 0.0 (0.0-0.2) X10*3/uL Abs Immat Gran (auto) 0.04 H (0.00-0.03) X10*3/uL Absolute Neuts (auto) 4.6 (2.0-8.3) x10*3/uL Absolute Nucleated RBC 0.000 (0.0-0.012) X10*3/uL Nucleated RBC % (auto) 0.0 (0.0-0.2) /100WBC PT 13.3 H (10.9-12.4) SEC INR 1.1 (0.9-1.1) Sodium 140 (135-145) mmol/L Potassium 4.1 (3.3-5.1) mmol/L Chloride 106 (96-108) mmol/L Carbon Dioxide 24 (22-29) mmol/L Anion Gap 14 (12-20) BUN 34 H (9-16) mg/dL Creatinine 0.99 (0.5-1.4) mg/dL Estim Creat Clear Calc 66.2 Estimated GFR > 60 Random Glucose 136 H (60-115) mg/dL Calcium 8.3 L (8.4-10.2) mg/dL Total Bilirubin 0.2 (0.0-1.0) mg/dL AST 70 H (5-37) U/L ALT 49 H (0-40) U/L Alkaline Phosphatase 96 (39-117) U/L Total Protein 6.0 L (6.5-8.0) g/dL Albumin 2.1 L (3.5-5.0) g/dL Stool Occult Blood (NEGATIVE) Blood Type O Positive Antibody Screen NEGATIVE 11/14/24 11/14/24 Range/Units 14:22 14:35 WBC 7.0 (4.8-10.8) X10*3/uL RBC 2.81 L (4.60-5.80) X10*6/uL Hgb 7.6 L (14.0-18.0) g/dl Hct 25.1 L (42.0-52.0) % MCV 89.3 (80.0-98.0) fL MCH 27.0 (27.0-33.0) pg MCHC 30.3 L (31.0-36.0) g/dl RDW 17.4 H (11.0-16.0) % Plt Count 225 (160-400) X10*3/uL MPV 9.2 L (9.4-12.4) fL Immature Gran % (Auto) 0.6 H (0.0-0.4) % Neut % (Auto) 66.8 (45-73) % Lymph % (Auto) 19.2 L (20-40) % [place] % (Auto) 10.6 (2-11) % Eos % (Auto) 2.4 (0-4) % Baso % (Auto) 0.4 (0-2) % Lymph # (Auto) 1.3 (1.2-4.9) X10*3/uL [place] # (Auto) 0.7 (0.1-1.2) X10*3/uL Eos # (Auto) 0.2 (0.0-0.4) X10*3/uL Baso # (Auto) 0.0 (0.0-0.2) X10*3/uL Abs Immat Gran (auto) 0.04 H (0.00-0.03) X10*3/uL Absolute Neuts (auto) 4.7 (2.0-8.3) x10*3/uL Absolute Nucleated RBC 0.000 (0.0-0.012) X10*3/uL Nucleated RBC % (auto) 0.0 (0.0-0.2) /100WBC PT (10.9-12.4) SEC INR (0.9-1.1) Sodium (135-145) mmol/L Potassium (3.3-5.1) mmol/L Chloride (96-108) mmol/L Carbon Dioxide (22-29) mmol/L Anion Gap (12-20) BUN (9-16) mg/dL Creatinine (0.5-1.4) mg/dL Estim Creat Clear Calc Estimated GFR Random Glucose (60-115) mg/dL Calcium (8.4-10.2) mg/dL Total Bilirubin (0.0-1.0) mg/dL AST (5-37) U/L ALT (0-40) U/L Alkaline Phosphatase (39-117) U/L Total Protein (6.5-8.0) g/dL Albumin (3.5-5.0) g/dL Stool Occult Blood NEGATIVE (NEGATIVE) Blood Type Antibody Screen Discharge Plan Discharge Clinical Impression: Chronic anemia Patient Disposition: Home, Self-Care Instructions: Anemia (ED) Prescriptions: No Action polyethylene glycol 3350 17 gram Powder In Packet 17 g PO DAILY Qty: 30 0RF Rx Instructions: Hold for loose stool. sennosides [senna] 8.6 mg Tablet 17.2 mg PO BEDTIME Rx Instructions: HOLD FOR LOOSE STOOL polyvinyl alcohol 1.4 % Drops 1 drp OPHTHALMIC (EYE) Q6H PRN (Reason: Dry Eyes) Rx Instructions: Both eyes thiamine HCl (vitamin B1) [Vitamin B-1] 100 mg Tablet 100 mg PO DAILY levothyroxine 100 mcg Tablet 100 mcg PO DAILY@0600 famotidine 20 mg Tablet 20 mg PO BEDTIME ascorbic acid (vitamin C) 500 mg Tablet 500 mg PO BID bisacodyl 10 mg Suppository 10 mg NV DAILY PRN (Reason: Constipation) Rx Instructions: If MoM not effective. ferrous sulfate 325 mg (65 mg iron) Tablet 325 mg PO BID gabapentin 100 mg Capsule 200 mg PO BID docusate sodium 100 mg Tablet 200 mg PO BID acetaminophen 325 mg tablet 650 mg PO Q6H PRN (Reason: Pain/Fever) amiodarone 200 mg tablet 200 mg PO DAILY finasteride 5 mg Tablet 5 mg PO DAILY Qty: 0 0RF melatonin 5 mg tablet 10 mg PO BEDTIME PRN (Reason: Insomnia) zinc acetate 50 mg (zinc) Capsule 50 mg PO DAILY ondansetron HCl 4 mg Tablet 4 mg PO Q8H PRN (Reason: Nausea And Vomiting) Fleet Enema 19-7 gram/118 mL Enema 118 ml NV DAILY PRN (Reason: Constipation) Santyl 250 unit/gram Ointment 1 appl TOPICAL DAILY Rx Instructions: apply to RIGHT HEEL Cold and Hot (menthol) 5 % Adhesive Patch,Medicated 1 patch TOPICAL DAILY Rx Instructions: apply to left knee Lactobacillus acidoph-L.bulgar 1 million cell Tablet 1 tab PO BID trazodone 50 mg Tablet 50 mg PO BEDTIME trazodone 50 mg Tablet 25 mg PO BID PRN (Reason: DEPRESSION) Rx Instructions: TAKE IN ADDITION TO 50 MG BEDTIME DOSE UNTIL 11/16/24 miconazole nitrate 2 % Cream 1 appl TOPICAL BID Rx Instructions: apply to coccyx aspirin 81 mg Tablet,Delayed Release (Dr/Ec) 81 mg PO DAILY magnesium hydroxide [Milk of Magnesia] 400 mg/5 mL Suspension 30 ml PO DAILY PRN (Reason: Constipation) pantoprazole 40 mg Tablet,Delayed Release (Dr/Ec) 40 mg PO BID@0630,1630 fluticasone propionate 50 mcg/actuation [place],Suspension 2 spray INTRANASAL DAILY Rx Instructions: administer into each nostril amoxicillin 875 mg tablet 875 mg PO BID Rx Instructions: TO TAKE THROUGH 11/30/24 atorvastatin 40 mg tablet 40 mg PO DAILY doxycycline hyclate 100 mg tablet 100 mg PO BID Rx Instructions: TAKE THROUGH 11/22/24 heparin, porcine (PF) 5,000 unit/0.5 mL Syringe 5,000 unit SUBCUT Q8H Rx Instructions: FOR PROPHYLAXIS RELATED TO OSTEOMYELITIS Vashe 0.033 % Irrigation Solution 1 irrig IRRIGATION QSHIFT PRN (Reason: WOUND CLEANING) doxazosin 2 mg tablet 2 mg PO BEDTIME Protocol: Hold for SBP< HOLD for SBP < : 90 diphenoxylate-atropine 2.5-0.025 mg/5 mL liquid 5 ml PO DAILY Qty: 60 0RF Rx Instructions: hold for constipation tramadol 50 mg Tablet 100 mg PO Q6H PRN (Reason: Pain) Referrals: Ruth Bledsoe MD [Primary Care Provider] - Print Language: Yoruba
[2024-11-14 14:00] VITALS: BP 124/50; PULSE 85; RESP 13; TEMP 37; O2SAT 94
--- OUTSIDE RECORDS SUMMARY | 2024-11-14 14:05 | XMS_ITS | Encounter Summary ---
Author Organization [facility] Address [address] [place] [address] Care Team Providers Care Electromedical Equipment Repairer Name Role Phone Uday Sheehan Primary Care Provider [phone] Encounter Details Date Type Department Care Team (Late st Contact Info) Description 05/06/[address] [facility] [address] [place] [address] Salo Whyte MD [address] [place] [address] Acute and chronic respiratory failure with hypoxia; [...] - 10.8 10*3/uL 05/06/2024 11:12 AM EDT [facility] RBC 3.04(L) 4.70 - 6.10 10*6/uL 05/06/2024 11:12 AM EDT [facility] Hemoglobin 8.4(L) 13.7 - 16.5 g/dL 05/06/2024 11:12 AM EDT [facility] Hematocrit 26.9(L) 40.5 - 48.5 % 05/06/2024 11:12 AM EDT [facility] MCV 88.5 80.0 - 94.0 fL 05/06/2024 11:12 AM EDT [facility] MCH 27.6 26.0 - 34.0 pg 05/06/2024 11:12 AM EDT [facility] MCHC 31.2 31.0 - 36.0 g/dL 05/06/2024 11:12 AM EDT [facility] RDW 16.8(H) 12.0 - 15.0 % 05/06/2024 11:12 AM EDT [facility] RDW Standard Deviation 53.7(H) 35.1 - 43.9 fL 05/06/2024 11:12 AM EDT [facility] Platelets 179 140 - 440 10*3/uL 05/06/2024 11:12 AM EDT [facility] MPV 10.3 9.4 - 12.4 fL 05/06/2024 11:12 AM EDT [facility] Neutrophil % 55.7 50.0 - 75.0 % 05/06/2024 11:12 AM EDT [facility] Immature Grans % 0.3 0.0 - 0.9 % 05/06/2024 11:12 AM EDT [facility] Lymphocyte % 25.6 20.0 - 44.0 % 05/06/2024 11:12 AM EDT [facility] Monocyte % 12.2 0.0 - 14.0 % 05/06/2024 11:12 AM EDT [facility] Eosinophil % 5.7(H) 0.0 - 5.0 % 05/06/2024 11:12 AM EDT [facility] Basophil % 0.5 0.0 - 2.0 % 05/06/2024 11:12 AM EDT [facility] Neutrophil # 3.24 1.80 - 7.70 10*3/uL 05/06/2024 11:12 AM EDT [facility] Immature Grans # <0.03 0.00 - 0.03 10*3/uL 05/06/2024 11:12 AM EDT [facility] Lymphocyte # 1.50 1.00 - 4.75 10*3/uL 05/06/2024 11:12 AM EDT [facility] Monocyte # 0.70 0.00 - 6.00 10*3/uL 05/06/2024 11:12 AM EDT [facility] Eosinophil # 0.30 0.00 - 0.80 10*3/uL 05/06/2024 11:12 AM EDT [facility] Basophil # <0.03 0.00 - 0.20 10*3/uL 05/06/2024 11:12 AM EDT [facility] nRBC % 0.0 0 - 0 /100 WBCs 05/06/2024 11:12 AM EDT [facility] nRBC # <0.01 0.00 - 0.13 10*3/uL 05/06/2024 11:12 AM EDT [facility] Blood Structure of peripheral vein / Unknown Venipuncture / Unknown 05/06/2024 10:36 AM EDT 05/06/2024 10:36 AM EDT Salo Whyte MD LAB BLOOD ORDERABLES Final Result [facility] [address] [place] [address], * (ABNORMAL) Comprehensive Metabolic Panel (05/06/2024 10:36 AM EDT) NA 143 136 - 145 mmol/L 05/06/2024 11:24 AM EDT [facility] K 3.6 3.5 - 5.1 mmol/L 05/06/2024 11:24 AM EDT [facility] Cl 103 98 - 109 mmol/L 05/06/2024 11:24 AM EDT [facility] CO2 29 22 - 32 mmol/L 05/06/2024 11:24 AM EDT [facility] Anion Gap 15 >=0 05/06/2024 11:24 AM EDT [facility] Glucose 93 60 - 99 mg/dL 05/06/2024 11:24 AM EDT [facility] Creatinine 1.63(H) 0.50 - 1.12 mg/dL 05/06/2024 11:24 AM EDT [facility] Calcium 9.2 8.4 - 10.4 mg/dL 05/06/2024 11:24 AM EDT [facility] Total Protein 6.2(L) 6.6 - 8.7 g/dL 05/06/2024 11:24 AM EDT [facility] Albumin 3.0(L) 3.5 - 5.0 g/dL 05/06/2024 11:24 AM EDT [facility] Bilirubin, Total 0.3 0.2 - 1.2 mg/dL 05/06/2024 11:24 AM EDT [facility] Alkaline Phosphatase 102 40 - 129 U/L 05/06/2024 11:24 AM EDT [facility] AST 31 0 - 40 U/L 05/06/2024 11:24 AM EDT [facility] ALT 35 <=41 U/L 05/06/2024 11:24 AM EDT [facility] BUN 35(H) 8 - 23 mg/dL 05/06/2024 11:24 AM EDT [facility] eGFR 41(L) >=60 mL/min/1. 73m2 05/06/2024 11:24 AM EDT [facility] [...] - 4.2 g/dL 05/06/2024 11:24 AM EDT [facility] A/G Ratio 0.9(L) 1.5 - 3.0 05/06/2024 11:24 AM EDT [facility] Blood Structure of peripheral vein / Unknown Venipuncture / Unknown 05/06/2024 10:36 AM EDT 05/06/2024 10:36 AM EDT Salo Whyte MD LAB BLOOD ORDERABLES Final Result [facility] [address] [place] [address] [address] [place] [address], documented in this encounter Visit Diagnoses Diagnosis Acute and chronic respiratory failure with hypoxia (HCC) No diagnosis documented in this encounter Additional Health Concerns Infection Onset Date Last Indicated Resolved Time 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
--- OUTSIDE RECORDS SUMMARY | 2024-11-14 14:05 | XMS_ITS | Encounter Summary ---
Author Organization [facility] Address [address] [place] [address] Care Team Providers Care Production Laborer Name Role Phone Uday Sheehan Primary Care Provider [phone] Encounter Details Date Type Department Care Team (Late st Contact Info) Description 05/07/2024 Lab Requisition [facility] [address] [place] [address] Salo Whyte MD [address] [place] [address] Acute and chronic respiratory failure with hypoxia; [...] Uric Acid (05/07/2024 8:30 AM EDT) Pathologist [facility] Uric Acid 7.3(H) 3.4 - 7.0 mg/dL 05/07/2024 9:23 AM EDT [facility] Blood Structure of peripheral vein / Unknown Venipuncture / Unknown 05/07/2024 8:30 AM EDT 05/07/2024 8:30 AM EDT us Salo Whyte MD LAB BLOOD ORDERABLES Final Result Performing Organization Address [facility]/ZIP Co de Phone Number [facility] [address] [address], [place] [phone] * (ABNORMAL) TSH (05/07/2024 8:30 AM EDT) Pathologist [facility] TSH 9.930(H) 0.270 - 4.200 uIU/mL 05/07/2024 9:23 AM EDT [facility] Blood Structure of peripheral vein / Unknown Venipuncture / Unknown 05/07/2024 8:30 AM EDT 05/07/2024 8:30 AM EDT us Salo Whyte MD LAB BLOOD ORDERABLES Final Result Performing Organization Address [facility] Co de Phone Number [facility] [address] [place] [address], [place] [phone] * T4, Free (05/07/2024 8:30 AM EDT) Free T4 1.35 0.80 - 1.80 ng/dL 05/07/2024 9:23 AM EDT [facility] Comment: Females: (ng/dL) First Trimester [...] ORDERABLES Final Result Performing Organization Address City/State/[facility] Co de Phone Number [facility] [address] [facility] [address] [place] [address], documented in this encounter Visit Diagnoses Diagnosis Acute and chronic respiratory failure with hypoxia (HCC) No diagnosis documented in this encounter Additional Health Concerns Infection Onset Date Last Indicated Resolved Time Multidrug resistant organisms MRSA 03/25/20242023 documented as of this encounter Care Teams Production Laborer Relationship Specialty Start Date End Date Uday Sheehan [address] [place] [address] [place] [address] PCP - General Internal Medicine 03/27/24 documented as of this encounter
--- OUTSIDE RECORDS SUMMARY | 2024-11-14 14:05 | XMS_ITS | Encounter Summary ---
Author Organization [facility] Address [address] [place] [address] Care Team Providers Care Loadmaster Name Role Phone Uday Sheehan Primary Care Provider [phone] Encounter Details Date Type Department Care Team (Late st Contact Info) Description 04/24/2024 Lab Requisition [facility] Lab [address] [place] [address] Lidia Barry, CB [address] [place] [address] Acute and chronic respiratory failure with hypoxia; [...] - 10.8 10*3/uL 04/24/2024 10:46 AM EDT [facility] RBC 2.90(L) 4.70 - 6.10 10*6/uL 04/24/2024 10:46 AM EDT [facility] Hemoglobin 8.1(L) 13.7 - 16.5 g/dL 04/24/2024 10:46 AM EDT [facility] Hematocrit 25.3(L) 40.5 - 48.5 % 04/24/2024 10:46 AM EDT [facility] MCV 87.2 80.0 - 94.0 fL 04/24/2024 10:46 AM EDT [facility] MCH 27.9 26.0 - 34.0 pg 04/24/2024 10:46 AM EDT [facility] MCHC 32.0 31.0 - 36.0 g/dL 04/24/2024 10:46 AM EDT [facility] RDW 16.2(H) 12.0 - 15.0 % 04/24/2024 10:46 AM EDT [facility] RDW Standard Deviation 51.6(H) 35.1 - 43.9 fL 04/24/2024 10:46 AM EDT [facility] Platelets 160 140 - 440 10*3/uL 04/24/2024 10:46 AM EDT [facility] MPV 10.7 9.4 - 12.4 fL 04/24/2024 10:46 AM EDT [facility] Neutrophil % 51.2 50.0 - 75.0 % 04/24/2024 10:46 AM EDT [facility] Immature Grans % 0.2 0.0 - 0.9 % 04/24/2024 10:46 AM EDT [facility] Lymphocyte % 24.6 20.0 - 44.0 % 04/24/2024 10:46 AM EDT [facility] Monocyte % 18.4(H) 0.0 - 14.0 % 04/24/2024 10:46 AM EDT [facility] Eosinophil % 5.1(H) 0.0 - 5.0 % 04/24/2024 10:46 AM EDT [facility] Basophil % 0.5 0.0 - 2.0 % 04/24/2024 10:46 AM EDT [facility] Neutrophil # 2.80 1.80 - 7.70 10*3/uL 04/24/2024 10:46 AM EDT [facility] Immature Grans # <0.03 0.00 - 0.03 10*3/uL 04/24/2024 10:46 AM EDT [facility] Lymphocyte # 1.40 1.00 - 4.75 10*3/uL 04/24/2024 10:46 AM EDT [facility] Monocyte # 1.00 0.00 - 6.00 10*3/uL 04/24/2024 10:46 AM EDT [facility] Eosinophil # 0.30 0.00 - 0.80 10*3/uL 04/24/2024 10:46 AM EDT [facility] Basophil # <0.03 0.00 - 0.20 10*3/uL 04/24/2024 10:46 AM EDT [facility] nRBC % 0.0 0 - 0 /100 WBCs 04/24/2024 10:46 AM EDT [facility] nRBC # <0.01 0.00 - 0.13 10*3/uL 04/24/2024 10:46 AM EDT [facility] Blood Structure of peripheral vein / Unknown Venipuncture / Unknown 04/24/2024 8:53 AM EDT 04/24/2024 10:36 AM EDT us Lidia Barry SANDW[employer]RIER LAB BLOOD ORDERABLES Final R esult [facility] [address] [facility] [address] [place] [address], * (ABNORMAL) Comprehensive Metabolic Panel (04/24/2024 8:53 AM EDT) NA 140 136 - 145 mmol/L 04/24/2024 11:40 AM EDT [facility] K 4.2 3.5 - 5.1 mmol/L 04/24/2024 11:40 AM EDT [facility] Cl 96(L) 98 - 109 mmol/L 04/24/2024 11:40 AM EDT [facility] CO2 33(H) 22 - 32 mmol/L 04/24/2024 11:40 AM EDT [facility] Anion Gap 15 >=0 04/24/2024 11:40 AM EDT [facility] Glucose 100(H) 60 - 99 mg/dL 04/24/2024 11:40 AM EDT [facility] Creatinine 1.60(H) 0.50 - 1.12 mg/dL 04/24/2024 11:40 AM EDT [facility] Calcium 9.6 8.4 - 10.4 mg/dL 04/24/2024 11:40 AM EDT [facility] Total Protein 5.9(L) 6.6 - 8.7 g/dL 04/24/2024 11:40 AM EDT [facility] Albumin 3.1(L) 3.5 - 5.0 g/dL 04/24/2024 11:40 AM EDT [facility] Bilirubin, Total 0.3 0.2 - 1.2 mg/dL 04/24/2024 11:40 AM EDT [facility] Alkaline Phosphatase 112 40 - 129 U/L 04/24/2024 11:40 AM EDT [facility] AST 32 0 - 40 U/L 04/24/2024 11:40 AM EDT [facility] ALT 33 <=41 U/L 04/24/2024 11:40 AM EDT [facility] BUN 53(H) 8 - 23 mg/dL 04/24/2024 11:40 AM EDT [facility] eGFR 42(L) >=60 mL/min/1. 73m2 04/24/2024 11:40 AM EDT [facility] Comment:The estimated glomer ular [...] - 4.2 g/dL 04/24/2024 11:40 AM EDT [facility] A/G Ratio 1.1(L) 1.5 - 3.0 04/24/2024 11:40 AM EDT [facility] Blood Structure of peripheral vein / Unknown Venipuncture / Unknown 04/24/2024 8:53 AM EDT 04/24/2024 10:36 AM EDT Lidia [facility] SANDW[employer]ARD CARRIER LAB BLOOD ORDERABLES Final R esult 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
--- OUTSIDE RECORDS SUMMARY | 2024-11-14 14:05 | XMS_ITS | Encounter Summary ---
Author Organization [facility] Address [address] [place] [address] Care Team Providers Care Junior Designer Name Role Phone Uday Sheehan Primary Care Provider [phone] Encounter Details Date Type Department Care Team (Late st Contact Info) Description 04/26/2024 Lab Requisition [facility] Lab [address] [place] [address] Ross Buchanan MD [address] [place] [address] Acute and chronic respiratory failure with hypoxia; [...] - 2.5 mg/dL 04/26/2024 10:52 AM EDT [facility] Blood Structure of peripheral vein / Unknown Venipuncture / Unknown 04/26/2024 10:14 AM EDT 04/26/2024 10:14 AM EDT us Ross Buchanan MD LAB BLOOD ORDERABLES Final R esult [facility] [address] [facility] [address] [place] [address], * (ABNORMAL) Comprehensive Metabolic Panel (04/26/2024 10:14 AM EDT) NA 140 136 - 145 mmol/L 04/26/2024 10:52 AM EDT [facility] K 3.8 3.5 - 5.1 mmol/L 04/26/2024 10:52 AM EDT [facility] Cl 98 98 - 109 mmol/L 04/26/2024 10:52 AM EDT [facility] CO2 34(H) 22 - 32 mmol/L 04/26/2024 10:52 AM EDT [facility] Anion Gap 12 >=0 04/26/2024 10:52 AM EDT [facility] Glucose 94 60 - 99 mg/dL 04/26/2024 10:52 AM EDT [facility] Creatinine 1.50(H) 0.50 - 1.12 mg/dL 04/26/2024 10:52 AM EDT [facility] Calcium 9.3 8.4 - 10.4 mg/dL 04/26/2024 10:52 AM EDT [facility] Total Protein 6.0(L) 6.6 - 8.7 g/dL 04/26/2024 10:52 AM EDT [facility] Albumin 2.9(L) 3.5 - 5.0 g/dL 04/26/2024 10:52 AM EDT [facility] Bilirubin, Total 0.3 0.2 - 1.2 mg/dL 04/26/2024 10:52 AM EDT [facility] Alkaline Phosphatase 113 40 - 129 U/L 04/26/2024 10:52 AM EDT [facility] AST 44(H) 0 - 40 U/L 04/26/2024 10:52 AM EDT [facility] ALT 40 <=41 U/L 04/26/2024 10:52 AM T [facility] BUN 51(H) 8 - 23 mg/dL 04/26/2024 10:52 AM T [facility] eGFR 46(L) >=60 mL/min/1. 73m2 04/26/2024 10:52 AM T [facility] Comment:The estimated glomer ular [...] - 4.2 g/dL 04/26/2024 10:52 AM T [facility] A/G Ratio 0.9(L) 1.5 - 3.0 04/26/2024 10:52 AM [facility] Blood Structure of peripheral vein / Unknown Venipuncture / Unknown 04/26/2024 10:14 AM EDT 04/26/2024 10:14 AM EDT us Ross Buchanan MD LAB BLOOD ORDERABLES Final R esult [facility] [address] [place] [address], documented in this encounter Visit Diagnoses Diagnosis Acute and chronic respiratory failure with hypoxia (HCC) No diagnosis documented in this encounter Additional Health Concerns Infection Onset Date Last Indicated Resolved Time 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
--- OUTSIDE RECORDS SUMMARY | 2024-11-14 14:06 | XMS_ITS | Encounter Summary ---
Author Organization [facility] Address [address] [place] [address] Care Team Providers Care Supervisor Of Operations Name Role Phone Uday Sheehan MD Primary Care Provider [phone] Encounter Details Date Type Department Care Team (Late st Contact Info) Description 09/28/2024 Lab Requisition [facility] [address] [place] [address] Tabby Bledsoe MD [address] [address] Bacteremia Social History Tobacco Use Types Packs/Day [...] LAB CHEMISTRY METHOD 09/30/2024 11:57 AM EDT [facility] Potassium 4.7 3.5 - 5.5 mmol/L LAB CHEMISTRY METHOD 09/30/2024 11:57 AM [facility] Chloride 98 96 - 110 mmol/L LAB CHEMISTRY METHOD 09/30/2024 11:57 AM [facility] CO2 31 21 - 32 mmol/L LAB CHEMISTRY METHOD 09/30/2024 11:57 AM [facility] Anion Gap 6 3 - 11 LAB CHEMISTRY METHOD 09/30/2024 11:57 AM [facility] Glucose 132(H) 70 - 100 mg/dL LAB CHEMISTRY METHOD 09/30/2024 11:57 AM [facility] BUN 30(H) 5 - 25 mg/dL LAB CHEMISTRY METHOD 09/30/2024 11:57 AM [facility] Creatinine 1.22 0.70 - 1.30 mg/dL LAB CHEMISTRY METHOD 09/30/2024 11:57 AM [facility] eGFR 58(L) >=60 mL/min/1. 73m2 LAB CHEMISTRY METHOD 09/30/2024 11:57 AM [facility] Comment:Calculation based on the??Chronic Kidney Disease Epidemiology Collaboration (CKD-EPI) equation refit??without adjustment for race. BUN/Creatinine Ratio 24.6 LAB CHEMISTRY METHOD 09/30/2024 11:57 AM [facility] Calcium 8.1(L) 8.5 - 10.5 mg/dL LAB CHEMISTRY METHOD 09/30/2024 11:57 AM [facility] AST (SGOT) 45(H) 10 - 42 unit/L LAB CHEMISTRY METHOD 09/30/2024 11:57 AM [facility] ALT (SGPT) 45 10 - 60 unit/L LAB CHEMISTRY METHOD 09/30/2024 11:57 AM [facility] Alkaline Phosphatase 101 42 - 121 unit/L LAB CHEMISTRY METHOD 09/30/2024 11:57 AM [facility] Total Protein 5.5(L) 6.0 - 8.0 g/dL LAB CHEMISTRY METHOD 09/30/2024 11:57 AM T [facility] Albumin 1.4(L) 3.2 - 5.0 g/dL LAB CHEMISTRY METHOD 09/30/2024 11:57 AM EDT [facility] Total Bilirubin 0.3 0.0 - 1.4 mg/dL LAB CHEMISTRY METHOD 09/30/2024 11:57 AM EDT [facility] Blood Venous blood specimen / Unknown Venipuncture / Unknown 09/30/2024 8:29 AM EDT 09/30/2024 10:52 AM EDT us Tabby Bledsoe MD LAB BLOOD ORDERABLES Fin al Result [facility] [address] [place] [address], * (ABNORMAL) Complete blood count (09/30/2024 8:29 AM EDT) WBC 6.7 4.8 - 10.8 K/mcL LAB HEMETOLOGY METHOD 09/30/2024 11:44 AM [facility] RBC 2.40(L) 4.50 - 5.50 M/mcL LAB HEMETOLOGY METHOD 09/30/2024 11:44 AM [facility] Hemoglobin 6.6(L) 13.5 - 17.5 g/dL LAB HEMETOLOGY METHOD 09/30/2024 11:44 AM T [facility] Hematocrit 22.2(L) 42.0 - 54.0 % LAB HEMETOLOGY METHOD 09/30/2024 11:44 AM [facility] MCV 93.7 79.0 - 98.0 FL LAB HEMETOLOGY METHOD 09/30/2024 11:44 AM [facility] MCH 27.8 27.0 - 32.0 pcg LAB HEMETOLOGY METHOD 09/30/2024 11:44 AM EDT [facility] MCHC 29.7(L) 32.0 - 37.0 g/dL LAB HEMETOLOGY METHOD 09/30/2024 11:44 AM EDT [facility] RDW 16.7(H) 11.0 - 15.0 % LAB HEMETOLOGY METHOD 09/30/2024 11:44 AM EDT [facility] Platelets 271 130 - 400 K/mcL LAB HEMETOLOGY METHOD 09/30/2024 11:44 AM EDT [facility] MPV 9.4 7.0 - 11.0 FL LAB HEMETOLOGY METHOD 09/30/2024 11:44 AM EDT [facility] NRBC 0.0 <1.0 % LAB HEMETOLOGY METHOD 09/30/2024 11:44 AM EDT [facility] NRBC Absolute 0.00 <0.10 K/mcL LAB HEMETOLOGY METHOD 09/30/2024 11:44 AM T [facility] Blood Venous blood specimen / Unknown Venipuncture / Unknown 09/30/2024 8:29 AM EDT 09/30/2024 10:52 AM EDT us Tabby Bledsoe MD LAB BLOOD ORDERABLES Fin al Result [facility] [address] [place] [address], documented in this encounter Visit Diagnoses Diagnosis Bacteremia documented in this encounter Additional Health Concerns Infection Onset Date Last Indicated Resolved Time ESBL 06/22/2024 06/22/2024 documented as of this encounter Care Teams Supervisor Of Operations Relationship Specialty Start Date End Date Uday Sheehan MD [address] [place] [address] Dr Thompson [place] PCP - General Broomcorn Thresher 12/19/16 documented as of this encounter
--- OUTSIDE RECORDS SUMMARY | 2024-11-14 14:06 | XMS_ITS | Encounter Summary ---
Author Organization [facility] Address [address] [place] [address] Care Team Providers Care Construction Producer Name Role Phone Uday Sheehan Primary Care Provider Encounter Details Date Type Department Care Team (Late st Contact Info) Description 03/23/2024 Lab Requisition [facility] [address] [place] [address] Valarie Pierson MD [address] [place] [address] Acute and chronic respiratory failure with hypoxia; [...] this encounter Procedures * Due to [place] law, this organization might not be sharing negative HIV tests. Procedure Name Priority Date/Time Associated Diagnosis Comments VANCOMYCIN, TROUGH Routine 03/23/2024 5: 30 AM EDT Acute and chronic respiratory failure with hypoxia (HCC) No diagnosis documented in this encounter Results * Due to [place] law, this organization might not be sharing negative HIV tests. * Vancomycin, Trough (03/23/2024 5:30 AM EDT) Vancomycin Trough 15.6 10.0 - 20.0 ug/mL 03/23/2024 11:45 AM EDT [facility] Blood Structure of peripheral vein / Unknown Venipuncture / Unknown 03/23/2024 5:30 AM EDT 03/23/2024 9:17 AM EDT us Valarie Pierson MD LAB BLOOD ORDERABLES Final Res ult [facility] [address] [place] [address], documented in this encounter Visit Diagnoses Diagnosis [...] documented as of this encounter Care Teams Construction Producer Relationship Specialty Start Date End Date Uday Sheehan [address] [place] [address] [place] [address] PCP - General Internal Medicine 03/27/24 documented as of this encounter
--- OUTSIDE RECORDS SUMMARY | 2024-11-14 14:06 | XMS_ITS | Encounter Summary ---
Author Organization [facility] Address [address] [place] [address] Phone Care Team Providers Care Earth Science Professor Name Role Phone Uday Sheehan MD Primary Care Provider [phone] Encounter Details Date Type Department Care Team (Late st Contact Info) Description 04/20/2022 Documentation Only [facility] [address] [place] [address] Adi Jaeger MD [address] [place] [address] [place] [address] Social History Tobacco Use Types [...] on filedocumented in this encounter Care Teams Earth Science Professor Relationship Specialty Start Date End Date Uday Sheehan MD [address] [place] [address] [address] [place] PCP - General 05/14/19 documented as of this encounter
--- OUTSIDE RECORDS SUMMARY | 2024-11-14 14:06 | XMS_ITS | Encounter Summary ---
Author Organization [facility] Address [address] [place] [address] Care Team Providers Care Clarification Operator Name Role Phone Uday Sheehan MD Primary Care Provider [phone] Encounter Details Date Type Department Care Team (Late st Contact Info) Description 09/04/2024 Lab Requisition [facility] - Main Lab 299 [facility] [place] [address] Tabby Bledsoe MD [address] [address] Sequelae of unspecified nutritional deficiency; Encounter for [...] Vancomycin random (09/04/2024 7:02 AM EST) Pathologist [facility] [place] Vancomycin Rm 18.9 mcg/mL LAB CHEMISTRY METHOD 09/04/2024 12:36 PM EST [facility] Blood Venous blood specimen / Unknown Venipuncture / Unknown 09/04/2024 7:02 AM EST 09/04/2024 9:13 AM EST Tabby Bledsoe MD LAB BLOOD ORDERABLES Fin al Result [facility] [address] [place] [address], [place] [phone] * Vancomycin, trough (09/04/2024 7:02 AM EST) [facility] Vancomycin Trough 19.0 10.0 - 20.0 mcg/mL LAB CHEMISTRY METHOD 09/04/2024 10:59 AM EST [facility] Blood Venous blood specimen / Unknown Venipuncture / Unknown 09/04/2024 7:02 AM EST 09/04/2024 9:13 AM EST Tabby Bledsoe MD LAB BLOOD ORDERABLES Fin al Result Performing Organization Address City/[facility]/ZIP Co de Phone Number [facility] [address] [place] [address], [place] [phone] * (ABNORMAL) Comprehensive metabolic panel (09/04/2024 7:02 AM EST) [facility] Sodium 142 133 - 145 mmol/L LAB CHEMISTRY METHOD 09/04/2024 11:02 AM EST [facility] Potassium 3.9 3.5 - 5.5 mmol/L LAB CHEMISTRY METHOD 09/04/2024 11:02 AM EST [facility] Chloride 107 96 - 110 mmol/L LAB CHEMISTRY METHOD 09/04/2024 11:02 AM [facility] CO2 31 21 - 32 mmol/L LAB CHEMISTRY METHOD 09/04/2024 11:02 AM [facility] Anion Gap 4 3 - 11 LAB CHEMISTRY METHOD 09/04/2024 11:02 AM [facility] Glucose 76 70 - 100 mg/dL LAB CHEMISTRY METHOD 09/04/2024 11:02 AM [facility] BUN 28(H) 5 - 25 mg/dL LAB CHEMISTRY METHOD 09/04/2024 11:02 AM [facility] Creatinine 1.16 0.70 - 1.30 mg/dL LAB CHEMISTRY METHOD 09/04/2024 11:02 AM [facility] eGFR 62 >=60 mL/min/1. 73m2 LAB CHEMISTRY METHOD 09/04/2024 11:02 AM [facility] Comment:Calculation based on the??Chronic Kidney Disease Epidemiology Collaboration (CKD-EPI) equation refit??without adjustment for race. BUN/Creatinine Ratio 24.1 LAB CHEMISTRY METHOD 09/04/2024 11:02 AM [facility] Calcium 8.3(L) 8.5 - 10.5 mg/dL LAB CHEMISTRY METHOD 09/04/2024 11:02 AM [facility] AST (SGOT) 48(H) 10 - 42 unit/L LAB CHEMISTRY METHOD 09/04/2024 11:02 AM [facility] ALT (SGPT) 34 10 - 60 unit/L LAB CHEMISTRY METHOD 09/04/2024 11:02 AM [facility] Alkaline Phosphatase 86 42 - 121 unit/L LAB CHEMISTRY METHOD 09/04/2024 11:02 AM [facility] Total Protein 5.4(L) 6.0 - 8.0 g/dL LAB CHEMISTRY METHOD 09/04/2024 11:02 AM [facility] Albumin 1.3(L) 3.2 - 5.0 g/dL LAB CHEMISTRY METHOD 09/04/2024 11:02 AM [facility] Total Bilirubin 0.4 0.0 - 1.4 mg/dL LAB CHEMISTRY METHOD 09/04/2024 11:02 AM [facility] Blood Venous blood specimen / Unknown Venipuncture / Unknown 09/04/2024 7:02 AM EST 09/04/2024 9:13 AM EST us Tabby Bledsoe MD LAB BLOOD ORDERABLES Fin al Result [facility] [address] [place] [address], * (ABNORMAL) Complete blood count (09/04/2024 7:02 AM EST) WBC 6.6 4.8 - 10.8 K/mcL LAB HEMETOLOGY METHOD 09/04/2024 10:55 AM [facility] RBC 3.10(L) 4.50 - 5.50 M/mcL LAB HEMETOLOGY METHOD 09/04/2024 10:55 AM [facility] Hemoglobin 8.7(L) 13.5 - 17.5 g/dL LAB HEMETOLOGY METHOD 09/04/2024 10:55 AM [facility] Hematocrit 29.7(L) 42.0 - 54.0 % LAB HEMETOLOGY METHOD 09/04/2024 10:55 AM [facility] MCV 95.5 79.0 - 98.0 FL LAB HEMETOLOGY METHOD 09/04/2024 10:55 AM [facility] MCH 28.0 27.0 - 32.0 pcg LAB HEMETOLOGY METHOD 09/04/2024 10:55 AM [facility] MCHC 29.3(L) 32.0 - 37.0 g/dL LAB HEMETOLOGY METHOD 09/04/2024 10:55 AM EST [facility] RDW 17.0(H) 11.0 - 15.0 % LAB HEMETOLOGY METHOD 09/04/2024 10:55 AM EST [facility] Platelets 269 130 - 400 K/mcL LAB HEMETOLOGY METHOD 09/04/2024 10:55 AM EST [facility] MPV 9.5 7.0 - 11.0 FL LAB HEMETOLOGY METHOD 09/04/2024 10:55 AM EST [facility] NRBC 0.0 <1.0 % LAB HEMETOLOGY METHOD 09/04/2024 10:55 AM [facility] NRBC Absolute 0.00 <0.10 K/mcL LAB HEMETOLOGY METHOD 09/04/2024 10:55 AM [facility] Blood Venous blood specimen / Unknown Venipuncture / Unknown 09/04/2024 7:02 AM EST 09/04/2024 9:13 AM EST us Tabby Bledsoe MD LAB BLOOD ORDERABLES Fin al Result [facility] [address] [place] [address], documented in this encounter Visit Diagnoses Diagnosis Sequelae of unspecified nutritional deficiency Encounter for therapeutic drug level monitoring documented in this encounter Additional Health Concerns Infection Onset Date Last Indicated Resolved Time ESBL 06/22/2024 06/22/2024 documented as of this encounter Care Teams Clarification Operator Relationship Specialty Start Date End Date Uday Sheehan MD [address] [facility] [address] Donna [place] PCP - General Strip Cutting Machine Operator 12/19/16 documented as of this encounter
--- OUTSIDE RECORDS SUMMARY | 2024-11-14 14:06 | XMS_ITS | Encounter Summary ---
Author Organization [facility] Address [address] [place] [address] Care Team Providers Care Technologist Infectious Disease Name Role Phone Udya Sheehan MD Primary Care Provider [phone] Encounter Details Date Type Department Care Team (Late st Contact Info) Description 11/12/2024 Lab Requisition [facility] - Main Lab [address] [place] [address] Tabby Bledsoe MD [address] [address] Anemia, unspecified Social History Tobacco Use Types [...] Associated Diagnosis Comments COMPLETE BLOOD COUNT Routine 11/12/2024 5:45 AM EDT Anemia, unspecified documented in this encounter Results * (ABNORMAL) Complete blood count (11/12/2024 5:45 AM EDT) WBC 6.6 4.8 - 10.8 K/[facility] LAB HEMETOLOGY METHOD 11/12/2024 10:31 AM EDT [facility] LAB RBC 2.50(L) 4.50 - 5.50 /[facility] LAB HEMETOLOGY METHOD 11/12/2024 10:[facility] Hemoglobin 6.8(L) 13.5 - 17.5 g/dL LAB HEMETOLOGY METHOD 11/12/2024 10:31 AM [facility] Hematocrit 23.1(L) 42.0 - 54.0 % LAB HEMETOLOGY METHOD 11/12/2024 10:31 AM [facility] MCV 92.0 79.0 - 98.0 FL LAB HEMETOLOGY METHOD 11/12/2024 10:31 AM [facility] MCH 27.1 27.0 - 32.0 pcg LAB HEMETOLOGY METHOD 11/12/2024 10:31 AM [facility] MCHC 29.4(L) 32.0 - 37.0 g/dL LAB HEMETOLOGY METHOD 11/12/2024 10:31 AM [facility] RDW 17.6(H) 11.0 - 15.0 % LAB HEMETOLOGY METHOD 11/12/2024 10:31 AM [facility] Platelets 246 130 - 400 K/mcL LAB HEMETOLOGY METHOD 11/12/2024 10:31 AM [facility] MPV 9.8 7.0 - 11.0 FL LAB HEMETOLOGY METHOD 11/12/2024 10:31 AM [facility] NRBC 0.0 <1.0 % LAB HEMETOLOGY METHOD 11/12/2024 10:31 AM [facility] NRBC Absolute 0.00 <0.10 K/mcL LAB HEMETOLOGY METHOD 11/12/2024 10:31 AM [facility] Blood Venous blood specimen / Unknown Venipuncture / Unknown 11/12/2024 5:45 AM EDT 11/12/2024 9:47 AM EDT us Tabby Bledsoe MD LAB BLOOD ORDERABLES Fin al Result [facility] [address] [place] [address], documented in this encounter Visit Diagnoses Diagnosis Anemia, unspecified documented in this encounter Additional Health Concerns Infection Onset Date Last Indicated Resolved Time ESBL 06/22/2024 06/22/2024 documented as of this encounter Care Teams Technologist Infectious Disease Relationship Specialty Start Date End Date Uday Sheehan MD [address] [place] [address] Dr Butler [address] [place] [address] PCP - General Jewish Thought Professor 12/19/16 documented as of this encounter
--- OUTSIDE RECORDS SUMMARY | 2024-11-14 14:06 | XMS_ITS | Encounter Summary ---
Author Organization [facility] Address [address] [place] [address] Care Team Providers Care Health Information Internship Name Role Phone Uday Sheehan MD Primary Care Provider [phone] Encounter Details Date Type Department Care Team (Late st Contact Info) Description 08/05/2024 Lab Requisition [facility] - Main Lab 299 [facility] [place] [address] Tabby Bledsoe MD 8[address] [facility] [address] [place] [address] Urinary tract infection, site not specified Social [...] Escherichia coli(A) [place] 08/07/2024 9:46 AM EST [facility] Comment: This is an edited [...] MICROBIOLOGY - GENER AL ORDERABLES Final Result [facility] [address] [place] [address], * (ABNORMAL) Urinalysis with reflex microscopic and culture (08/03/2024 7:00 AM EST) Pathologist [facility] Specific [place] Urine 1.014 1.003 - 1.030 LAB URINALYSIS - AUTOMATED METHOD 08/05/2024 1:39 PM [facility] pH, Urine 5.5 5.0 - 8.0 pH LAB URINALYSIS - AUTOMATED METHOD 08/05/2024 1:39 PM [facility] Leukocytes, Urine Large(A) Negative LAB URINALYSIS - AUTOMATED METHOD 08/05/2024 1:39 PM [facility] Nitrite, Urine Negative Negative LAB URINALYSIS - AUTOMATED METHOD 08/05/2024 1:39 PM [facility] Protein, Urine 30(A) <=Trace mg/dL LAB URINALYSIS - AUTOMATED METHOD 08/05/2024 1:39 PM [facility] Glucose, Urine Negative Negative mg/dL LAB URINALYSIS - AUTOMATED METHOD 08/05/2024 1:39 PM [facility] Ketones, Urine Negative Negative mg/dL LAB URINALYSIS - AUTOMATED METHOD 08/05/2024 1:39 PM [facility] Urobilinogen , Urine 0.2 0.2 - 1.0 mg/dL LAB URINALYSIS - AUTOMATED METHOD 08/05/2024 1:39 PM [facility] Bilirubin, Urine Negative Negative LAB URINALYSIS - AUTOMATED METHOD 08/05/2024 1:39 PM [facility] Blood, Urine Large(A) Negative LAB URINALYSIS - AUTOMATED METHOD 08/05/2024 1:39 PM [facility] RBC, Urine 271.0(H) 0 - 4 /HPF LAB URINALYSIS - AUTOMATED METHOD 08/05/2024 1:39 PM [facility] WBC, Urine 1,434.7(H) 0 - 4 /HPF LAB URINALYSIS - AUTOMATED METHOD 08/05/2024 1:39 PM [facility] Squamous Epithelial, Urine 41 0 - 60 /LPF LAB URINALYSIS - AUTOMATED METHOD 08/05/2024 1:39 PM [facility] Crystals, Urine MOD CALCIUM OXALATE /LPF LAB URINALYSIS - AUTOMATED METHOD 08/05/2024 1:39 PM [facility] Bacteria, Urine Many(A) Negative /HPF LAB URINALYSIS - AUTOMATED METHOD 08/05/2024 1:39 PM [facility] Hyaline Casts, Urine 8.1(H) 0 - 3 /LPF LAB URINALYSIS - AUTOMATED METHOD 08/05/2024 1:39 PM [facility] Urine Indwelling urinary catheter / Unknown Non-blood Collection / Unknown 08/03/2024 7:00 AM EST 08/05/2024 11:47 AM EST Tabby Bledsoe MD LAB URINE ORDERABLES Fin al Result Performing Organization Address [facility]/ZIP Co de Phone Number [facility] [address] [place] [address], [place] [phone] * Espinoza urine culture tube (08/03/2024 7:00 AM EST) Extra Tube Hold for add-ons. 08/05/2024 1:01 PM [facility] Comment:Auto resulted. Urine Indwelling urinary catheter / Unknown Non-blood Collection / Unknown 08/03/2024 7:00 AM EST 08/05/2024 11:47 AM EST Tabby Bledsoe MD LAB URINE ORDERABLES Fin al Result Performing Organization Address [facility]/ZIP Co de Phone Number [facility] [address] [place] [address], [place] [phone] documented in this encounter Visit Diagnoses Diagnosis Urinary tract infection, site not specified documented in this encounter Additional Health Concerns Infection Onset Date Last Indicated Resolved Time ESBL 06/22/2024 06/22/2024 documented as of this encounter Care Teams Health Information Internship Relationship Specialty Start Date End Date Uday Sheehan MD [address] [place] [address] Dr [place], [place] PCP - General School Business Administrator 12/19/16 documented as of this encounter
--- OUTSIDE RECORDS SUMMARY | 2024-11-14 14:06 | XMS_ITS | Encounter Summary ---
Author Organization [facility] Address [address] [place] [address] Care Team Providers Care Office Aide Name Role Phone Uday Sheehan MD Primary Care Provider [phone] Encounter Details Date Type Department Care Team (Late st Contact Info) Description 06/07/2024 Lab Requisition [facility] - Main Lab 299 [facility] [place] [address] Zak Zuluaga MD [address] [place], [place] [id number] Unspecified atrial fibrillation (CMS/HCC V24, CMS/HCC V28); [...] mmol/L LAB CHEMISTRY METHOD 06/10/2024 9:35 AM [facility] Potassium 4.2 3.5 - 5.5 mmol/L LAB CHEMISTRY METHOD 06/10/2024 9:35 AM [facility] Chloride 112(H) 96 - 110 mmol/L LAB CHEMISTRY METHOD 06/10/2024 9:35 AM [facility] CO2 25 21 - 32 mmol/L LAB CHEMISTRY METHOD 06/10/2024 9:35 AM [facility] Anion Gap 7 3 - 11 LAB CHEMISTRY METHOD 06/10/2024 9:35 AM [facility] Glucose 84 70 - 100 mg/dL LAB CHEMISTRY METHOD 06/10/2024 9:35 AM [facility] BUN 41(H) 5 - 25 mg/dL LAB CHEMISTRY METHOD 06/10/2024 9:35 AM [facility] Creatinine 2.66(H) 0.70 - 1.30 mg/dL LAB CHEMISTRY METHOD 06/10/2024 9:35 AM [facility] eGFR 23(L) >=60 mL/min/1. 73m2 LAB CHEMISTRY METHOD 06/10/2024 9:35 AM [facility] Comment:Calculation based on the??Chronic Kidney Disease Epidemiology Collaboration (CKD-EPI) equation refit??without adjustment for race. BUN/Creatinine Ratio 15.4 LAB CHEMISTRY METHOD 06/10/2024 9:35 AM [facility] Calcium 7.8(L) 8.5 - 10.5 mg/dL LAB CHEMISTRY METHOD 06/10/2024 9:35 AM [facility] AST (SGOT) 262(H) 10 - 42 unit/L LAB CHEMISTRY METHOD 06/10/2024 9:35 AM [facility] ALT (SGPT) 146(H) 10 - 60 unit/L LAB CHEMISTRY METHOD 06/10/2024 9:35 AM [facility] Alkaline Phosphatase 94 42 - 121 unit/L LAB CHEMISTRY METHOD 06/10/2024 9:35 AM [facility] Total Protein 5.1(L) 6.0 - 8.0 g/dL LAB CHEMISTRY METHOD 06/10/2024 9:35 AM [facility] Albumin 1.6(L) 3.2 - 5.0 g/dL LAB CHEMISTRY METHOD 06/10/2024 9:35 AM [facility] Total Bilirubin 0.4 0.0 - 1.4 mg/dL LAB CHEMISTRY METHOD 06/10/2024 9:35 AM [facility] Blood Venous blood specimen / Unknown Venipuncture / Unknown 06/10/2024 6:43 AM EST 06/10/2024 8:01 AM EST us Zak Zuluaga MD LAB BLOOD ORDERABLES Final Resul t [facility] [address] [place] [address], [place] [phone] * (ABNORMAL) Complete blood count (06/10/2024 6:43 AM EST) WBC 4.7(L) 4.8 - 10.8 K/mcL LAB HEMETOLOGY METHOD 06/10/2024 8:36 AM [facility] RBC 2.40(L) 4.50 - 5.50 M/mcL LAB HEMETOLOGY METHOD 06/10/2024 8:36 AM [facility] Hemoglobin 6.3(LL) 13.5 - 17.5 g/dL LAB HEMETOLOGY METHOD 06/10/2024 8:36 AM [facility] Hematocrit 21.0(L) 42.0 - 54.0 % LAB HEMETOLOGY METHOD 06/10/2024 8:36 AM [facility] MCV 88.0 79.0 - 98.0 FL LAB HEMETOLOGY METHOD 06/10/2024 8:36 AM EST [facility] MCH 26.0(L) 27.0 - 32.0 pcg LAB HEMETOLOGY METHOD 06/10/2024 8:36 AM EST [facility] MCHC 29.6(L) 32.0 - 37.0 g/dL LAB HEMETOLOGY METHOD 06/10/2024 8:36 AM EST [facility] RDW 17.1(H) 11.0 - 15.0 % LAB HEMETOLOGY METHOD 06/10/2024 8:36 AM EST [facility] Platelets 169 130 - 400 K/mcL LAB HEMETOLOGY METHOD 06/10/2024 8:36 AM [facility] MPV 10.3 7.0 - 11.0 FL LAB HEMETOLOGY METHOD 06/10/2024 8:36 AM EST [facility] NRBC 0.0 <1.0 % LAB HEMETOLOGY METHOD 06/10/2024 8:36 AM [facility] NRBC Absolute 0.00 <0.10 K/mcL LAB HEMETOLOGY METHOD 06/10/2024 8:36 AM [facility] Blood Venous blood specimen / Unknown Venipuncture / Unknown 06/10/2024 6:43 AM EST 06/10/2024 8:01 AM EST us Zak Zuluaga MD LAB BLOOD ORDERABLES Final Resul t [facility] [address] [place] [address], documented in this encounter Visit Diagnoses Diagnosis Unspecified atrial fibrillation (CMS/HCC V24, CMS/HCC V28) Essential (primary) hypertension Unspecified essential hypertension documented in this encounter Additional Health Concerns Infection Onset Date Last Indicated Resolved Time ESBL 06/22/2024 06/22/2024 documented as of this encounter Care Teams Office Aide Relationship Specialty Start Date End Date Uday Sheehan MD [address] [facility] [address] Donna [place] PCP - General Medical Staff Assistant 12/19/16 documented as of this encounter
--- OUTSIDE RECORDS SUMMARY | 2024-11-14 14:06 | XMS_ITS | Encounter Summary ---
Author Organization [facility] Address [address] [place] [address] Care Team Providers Care Sausage Smoker Name Role Phone Uday Sheehan MD Primary Care Provider [phone] Encounter Details Date Type Department Care Team (Late st Contact Info) Description 11/14/2024 Lab Requisition [facility] - Main Lab [address] [place] [address] Tabby Bledsoe MD [address] [address] Anemia, unspecified Social History Tobacco Use Types [...] Associated Diagnosis Comments COMPLETE BLOOD COUNT Routine 11/14/2024 6:10 AM EDT Anemia, unspecified documented in this encounter Results * (ABNORMAL) Complete blood count (11/14/2024 6:10 AM EDT) WBC 6.4 4.8 - 10.8 K/[facility] LAB HEMETOLOGY METHOD 11/14/2024 9:19 AM EDT [facility] RBC 2.50(L) 4.50 - 5.50 /[facility] LAB HEMETOLOGY METHOD 11/14[facility]2024 9[facility] Hemoglobin 6.7(L) 13.5 - 17.5 g/dL LAB HEMETOLOGY METHOD 11/14/2024 9:19 AM [facility] Hematocrit 23.1(L) 42.0 - 54.0 % LAB HEMETOLOGY METHOD 11/14/2024 9:19 AM [facility] MCV 92.0 79.0 - 98.0 FL LAB HEMETOLOGY METHOD 11/14/2024 9:19 AM [facility] MCH 26.7(L) 27.0 - 32.0 pcg LAB HEMETOLOGY METHOD 11/14/2024 9:19 AM [facility] MCHC 29.0(L) 32.0 - 37.0 g/dL LAB HEMETOLOGY METHOD 11/14/2024 9:19 AM [facility] RDW 17.5(H) 11.0 - 15.0 % LAB HEMETOLOGY METHOD 11/14/2024 9:19 AM [facility] Platelets 239 130 - 400 K/mcL LAB HEMETOLOGY METHOD 11/14/2024 9:19 AM [facility] MPV 9.3 7.0 - 11.0 FL LAB HEMETOLOGY METHOD 11/14/2024 9:19 AM [facility] NRBC 0.0 <1.0 % LAB HEMETOLOGY METHOD 11/14/2024 9:19 AM [facility] NRBC Absolute 0.00 <0.10 K/mcL LAB HEMETOLOGY METHOD 11/14/2024 9:19 AM [facility] Blood Venous blood specimen / Unknown Venipuncture / Unknown 11/14/2024 6:10 AM EDT 11/14/2024 8:46 AM EDT Tabby Bledsoe MD LAB BLOOD ORDERABLES Fin al Result [facility] [address] [place] [address], documented in this encounter Visit Diagnoses Diagnosis Anemia, unspecified documented in this encounter Additional Health Concerns Infection Onset Date Last Indicated Resolved Time ESBL 06/22/2024 06/22/2024 documented as of this encounter Care Teams Sausage Smoker Relationship Specialty Start Date End Date Uday Sheehan MD [address] [place] [address] Dr Butler [address] [place] [address] PCP - General Bull Float Finisher 12/19/16 documented as of this encounter
--- OUTSIDE RECORDS SUMMARY | 2024-11-14 14:06 | XMS_ITS | Encounter Summary ---
Author Organization [facility] Address [address] [place] [address] Care Team Providers Care Dye House Supervisor Name Role Phone Uday Sheehan MD Primary Care Provider [phone] Encounter Details Date Type Department Care Team (Late st Contact Info) Description 08/09/2024 Lab Requisition [facility] - Main Lab 299 [facility] [place] [address] Tabby Bledsoe MD [address] [address] Bacteremia Social History Tobacco Use Types Packs/Day [...] documented as of this encounter Care Teams Dye House Supervisor Relationship Specialty Start Date End Date Uday Sheehan MD [address] [place] [address] PCP - General Wood Experimental Mechanic 12/19/16 documented as of this encounter
--- OUTSIDE RECORDS SUMMARY | 2024-11-14 14:06 | XMS_ITS | Encounter Summary ---
Author Organization [facility] Address [address] [place] [address] Care Team Providers Care Neuroradiologist Name Role Phone Uday Sheehan Primary Care Provider [phone] Encounter Details Date Type Department Care Team (Late st Contact Info) Description 03/24/2024 Lab Requisition [facility] [address] [place] [address] Cecilio Bautista PA [address] [place] [address] Acute respiratory failure with hypoxia; No diagnosis [...] this encounter Procedures * Due to [place] [employer] law, this organization might not be sharing negative HIV tests. Procedure Name Priority Date/Time Associated Diagnosis Comments CBC AUTO DIFFERENTIAL Routine 03/24/2024 7:34 AM EDT Acute respiratory failure with hypoxia (HCC) No diagnosis documented in this encounter Results * Due to [place] [employer] law, this organization might not be sharing negative HIV tests. * (ABNORMAL) CBC Auto Differential (03/24/2024 7:34 AM EDT) [facility] WBC 9.2 4.8 - 10.8 10*3/uL 03/24/2024 10:37 AM EDT [facility] RBC 2.51(L) 4.70 - 6.10 10*6/uL 03/24/2024 10:37 AM EDT [facility] Hemoglobin 7.0(L) 13.7 - 16.5 g/dL 03/24/2024 10:37 AM EDT [facility] Hematocrit 22.5(L) 40.5 - 48.5 % 03/24/2024 10:37 AM EDT [facility] MCV 89.6 80.0 - 94.0 fL 03/24/2024 10:37 AM EDT [facility] MCH 27.9 26.0 - 34.0 pg 03/24/2024 10:37 AM EDT [facility] MCHC 31.1 31.0 - 36.0 g/dL 03/24/2024 10:37 AM EDT [facility] RDW 16.0(H) 12.0 - 15.0 % 03/24/2024 10:37 AM EDT [facility] RDW Standard Deviation 51.7(H) 35.1 - 43.9 fL 03/24/2024 10:37 AM EDT [facility] Platelets 186 140 - 440 10*3/uL 03/24/2024 10:37 AM EDT [facility] MPV 10.3 9.4 - 12.4 fL 03/24/2024 10:37 AM EDT [facility] Neutrophil % 59.1 50.0 - 75.0 % 03/24/2024 10:37 AM EDT [facility] Immature Grans % 0.3 0.0 - 0.9 % 03/24/2024 10:37 AM EDT [facility] Lymphocyte % 19.6(L) 20.0 - 44.0 % 03/24/2024 10:37 AM EDT [facility] Monocyte % 15.5(H) 0.0 - 14.0 % 03/24/2024 10:37 AM EDT [facility] Eosinophil % 4.8 0.0 - 5.0 % 03/24/2024 10:37 AM EDT [facility] Basophil % 0.7 0.0 - 2.0 % 03/24/2024 10:37 AM EDT [facility] Neutrophil # 5.45 1.80 - 7.70 10*3/uL 03/24/2024 10:37 AM EDT [facility] Immature Grans # 0.03 0.00 - 0.03 10*3/uL 03/24/2024 10:37 AM EDT [facility] Lymphocyte # 1.80 1.00 - 4.75 10*3/uL 03/24/2024 10:37 AM EDT [facility] Monocyte # 1.40 0.00 - 6.00 10*3/uL 03/24/2024 10:37 AM EDT [facility] Eosinophil # 0.40 0.00 - 0.80 10*3/uL 03/24/2024 10:37 AM EDT [facility] Basophil # 0.10 0.00 - 0.20 10*3/uL 03/24/2024 10:37 AM EDT [facility] nRBC % 0.0 0 - 0 /100 WBCs 03/24/2024 10:37 AM EDT [facility] nRBC # <0.01 0.00 - 0.13 10*3/uL 03/24/2024 10:37 AM EDT [facility] Blood Structure of peripheral vein / Unknown Venipuncture / Unknown 03/24/2024 7:34 AM EDT 03/24/2024 10:31 AM EDT us Cecilio ZHU LAB BLOOD ORDERABLES Final R esult [facility] [address] [facility] [address] [place] [address], [place] [phone] documented in this encounter Visit Diagnoses Diagnosis [...] documented as of this encounter Care Teams Neuroradiologist Relationship Specialty Start Date End Date Uday Sheehan [address] [place] [address] dr Donna Thompson, ALEC [address] PCP - General Internal Medicine 03/27/24 documented as of this encounter
--- OUTSIDE RECORDS SUMMARY | 2024-11-14 14:06 | XMS_ITS | Encounter Summary ---
Author Organization [facility] Address [address] [place] [address] Care Team Providers Care Crew Trainer Name Role Phone Uday Sheehan Primary Care Provider [phone] Encounter Details Date Type Department Care Team (Late st Contact Info) Description 03/27/2024 Lab Requisition [facility] [address] [place] [address] Lidia Barry, CB [address] [place] [address] Acute and chronic respiratory failure with hypoxia; [...] - 75 % 03/27/2024 9:04 AM EDT [facility] Lymphocyte %, Manual 33 33 - 54 % 03/27/2024 9:04 AM EDT [facility] Monocyte %, Manual 10 0 - 14 % 03/27/2024 9:04 AM EDT [facility] Eosinophil %, Manual 3 0 - 5 % 03/27/2024 9:04 AM EDT [facility] Basophil %, Manual 0 0 - 2 % 03/27/2024 9:04 AM EDT [facility] Plasma Cells % 1(H) 0 % 03/27/2024 9:04 AM EDT [facility] Total Neutrophil #, Manual 4.13 1.80 - 7.70 10*3/uL 03/27/2024 9:04 AM EDT [facility] Total Lymph #, Manual 2.57 1.00 - 4.75 10*3/uL 03/27/2024 9:04 AM EDT [facility] Monocyte #, Manual 0.78 0.00 - 6.00 10*3/uL 03/27/2024 9:04 AM EDT [facility] Eosinophil #, Manual 0.23 0.00 - 0.80 10*3/uL 03/27/2024 9:04 AM EDT [facility] Basophil #, Manual 0.00 0.00 - 0.20 10*3/uL 03/27/2024 9:04 AM EDT [facility] Plasma Cell # 0.08(H) 0.00 10*3/uL 09/18/202 4 9:04 AM EDT [facility] Platelet Estimate Adequate Adequate 03/27/2024 9:04 AM EDT [facility] Clumped Platelets Present(A) Not Present 03/27/2024 9:04 AM EDT [facility] RBC Morphology Present(A) Normal, No clinically significant RBC morphology present (ICSH guidelines, 2015). 03/27/2024 9:04 AM EDT [facility] Polychromasia 1+(A) Not Present 03/27/2024 9:04 AM EDT [facility] Ovalocytes 1+(A) Not Present 03/27/2024 9:04 AM EDT [facility] [place] Cells 1+(A) Not Present 03/27/2024 9:04 AM EDT [facility] Total Cells Counted 116 03/27/2024 9:04 AM EDT [facility] Blood Structure of peripheral vein / Unknown Venipuncture / Unknown 03/27/2024 8:19 AM EDT 03/27/2024 8:19 AM EDT us Lidia Barry CORPORATE TRAVEL MANAGER LAB BLOOD ORDERABLES Final R esult Performing Organization Address City/State/[facility] Co de Phone Number [facility] [address] [place] [id number], * (ABNORMAL) CBC Auto Differential (03/27/2024 8:19 AM EDT) WBC 7.8 4.8 - 10.8 10*3/uL 03/27/2024 9:04 AM EDT [facility] RBC 3.02(L) 4.70 - 6.10 10*6/uL 03/27/2024 9:04 AM EDT [facility] Hemoglobin 8.4(L) 13.7 - 16.5 g/dL 03/27/2024 9:04 AM EDT [facility] Hematocrit 25.7(L) 40.5 - 48.5 % 03/27/2024 9:04 AM EDT [facility] MCV 85.1 80.0 - 94.0 fL 03/27/2024 9:04 AM EDT [facility] Comment:REVIEWED MCH 27.8 26.0 - 34.0 pg 03/27/2024 9:04 AM EDT [facility] MCHC 32.7 31.0 - 36.0 g/dL 03/27/2024 9:04 AM EDT [facility] RDW 16.2(H) 12.0 - 15.0 % 03/27/2024 9:04 AM EDT [facility] RDW Standard Deviation 48.9(H) 35.1 - 43.9 fL 03/27/2024 9:04 AM EDT [facility] Platelets 192 140 - 440 10*3/uL 03/27/2024 9:04 AM EDT [facility] MPV 10.5 9.4 - 12.4 fL 03/27/2024 9:04 AM EDT [facility] nRBC % 0.0 0 - 0 /100 WBCs 03/27/2024 9:04 AM EDT [facility] nRBC # <0.01 0.00 - 0.13 10*3/uL 03/27/2024 9:04 AM EDT [facility] Blood Structure of peripheral vein / Unknown Venipuncture / Unknown 03/27/2024 8:19 AM EDT 03/27/2024 8:19 AM EDT Lidia Barry CORPORATE TRAVEL MANAGER LAB BLOOD ORDERABLES Final R esult [facility] [address] [facility] [address] [place] [address], * (ABNORMAL) Comprehensive Metabolic Panel (03/27/2024 8:19 AM EDT) NA 139 136 - 145 mmol/L 03/27/2024 9:02 AM EDT [facility] K 03/27/2024 9:02 AM EDT [facility] Comment:Unable to result due to Hemolysis Cl 99 98 - 109 mmol/L 03/27/2024 9:02 AM EDT [facility] CO2 32 23 - 32 mmol/L 03/27/2024 9:02 AM EDT [facility] Anion Gap 03/27/2024 9:02 AM EDT [facility] Comment:Unable to result due to Hemolysis Glucose 121(H) 60 - 99 mg/dL 03/27/2024 9:02 AM EDT [facility] Creatinine 0.88 0.50 - 1.12 mg/dL 03/27/2024 9:02 AM EDT [facility] Calcium 8.8 8.4 - 10.4 mg/dL 03/27[facility]24 [facility] Total Protein 6.6 6.6 - 8.7 g/dL 03/27/2024 9:02 AM [facility] Albumin 2.8(L) 3.5 - 5.0 g/dL 03/27/2024 9:[facility] Bilirubin, Total 0.4 0.2 - 1.2 mg/dL 03/27/2024 9:02 AM [facility] Alkaline Phosphatase 89 40 - 129 U/L 03/27/2024 9:02 AM [facility] AST 03/27/2024 9:02 AM [facility] Comment:Unable to result due to Hemolysis ALT 03/27/2024 9:02 AM [facility] Comment:Unable to result due to Hemolysis BUN 17 8 - 23 mg/dL 03/27/2024 9:02 AM [facility] eGFR 85 >=60 mL/min/1. 73m2 03/27/2024 9:02 AM [facility] Comment:The estimated glomer ular [...] - 4.2 g/dL 03/27/2024 9:02 AM EDT [facility] A/G Ratio 0.7(L) 1.5 - 3.0 03/27/2024 9:02 AM EDT [facility] Blood Structure of peripheral vein / Unknown Venipuncture / Unknown 03/27/2024 8:19 AM EDT 03/27/2024 8:19 AM EDT us Lidia Barry CORPORATE TRAVEL MANAGER LAB BLOOD ORDERABLES Final R esult Performing Organization Address City/State/[facility] Co de Phone Number [facility] [address] [place] [id number], documented in this encounter Visit Diagnoses Diagnosis [...] documented as of this encounter Care Teams Crew Trainer Relationship Specialty Start Date End Date Uday Sheehan [address] [place] [address] [place] [address] PCP - General Internal Medicine 03/27/24 documented as of this encounter
--- OUTSIDE RECORDS SUMMARY | 2024-11-14 14:06 | XMS_ITS | Encounter Summary ---
Author Organization [facility] Address [address] [place] [address] Care Team Providers Care Perforator Loader Name Role Phone Uday Sheehan Primary Care Provider [phone] Encounter Details Date Type Department Care Team (Late st Contact Info) Description 05/18/2024 Lab Requisition [facility] [address] [place] [address] No diagnosis Social History Tobacco Use Types [...] documented as of this encounter Care Teams Perforator Loader Relationship Specialty Start Date End Date Uday Sheehan [address] [place] [address] [place] [address] PCP - General Internal Medicine 03/27/24 documented as of this encounter
--- OUTSIDE RECORDS SUMMARY | 2024-11-14 14:06 | XMS_ITS | Encounter Summary ---
Author Organization [facility] Address [address] [place] [address] Care Team Providers Care Oil Recovery Operator Name Role Phone Uday Sheehan MD Primary Care Provider Encounter Details Date Type Department Care Team (Late st Contact Info) Description 09/25/2024 Lab Requisition [facility] [address] [place] [address] Tabby Bledsoe MD [address] [address] Chronic kidney disease, unspecified Social History Tobacco [...] LAB CHEMISTRY METHOD 09/25/2024 3:27 PM EDT [facility] Blood Venous blood specimen / Unknown Venipuncture / Unknown 09/25/2024 5:37 AM EDT 09/25/2024 11:49 AM EDT us Tabby Bledsoe MD LAB BLOOD ORDERABLES Fin al Result [facility] [address] [place] [address], documented in this encounter Visit Diagnoses Diagnosis Chronic kidney disease, unspecified documented in this encounter Additional Health Concerns Infection Onset Date Last Indicated Resolved Time ESBL 06/22/2024 06/22/2024 documented as of this encounter Care Teams Oil Recovery Operator Relationship Specialty Start Date End Date Uday Sheehan MD [address] [place] [address] Dr Donna [place] PCP - General Chick Grader 12/19/16 documented as of this encounter
--- OUTSIDE RECORDS SUMMARY | 2024-11-14 14:06 | XMS_ITS | Encounter Summary ---
Author Organization [facility] Address [address] [place] [address] Care Team Providers Care Hand Cloth Folder Name Role Phone Uday Sheehan MD Primary Care Provider [phone] Encounter Details Date Type Department Care Team (Late st Contact Info) Description 07/27/2024 Lab Requisition [facility] [address] [place] [address] Tabby Bledsoe MD [address] [address] Bacteremia Social History Tobacco Use Types Packs/Day [...] LAB CHEMISTRY METHOD 07/29/2024 2:40 PM EST [facility] Potassium 3.6 3.5 - 5.5 mmol/L LAB CHEMISTRY METHOD 07/29/2024 2:40 PM [facility] Chloride 105 96 - 110 mmol/L LAB CHEMISTRY METHOD 07/29/2024 2:40 PM [facility] CO2 29 21 - 32 mmol/L LAB CHEMISTRY METHOD 07/29/2024 2:40 PM [facility] Anion Gap 7 3 - 11 LAB CHEMISTRY METHOD 07/29/2024 2:40 PM [facility] Glucose 98 70 - 100 mg/dL LAB CHEMISTRY METHOD 07/29/2024 2:40 PM [facility] BUN 26(H) 5 - 25 mg/dL LAB CHEMISTRY METHOD 07/29/2024 2:40 PM [facility] Creatinine 2.26(H) 0.70 - 1.30 mg/dL LAB CHEMISTRY METHOD 07/29/2024 2:40 PM [facility] eGFR 28(L) >=60 mL/min/1. 73m2 LAB CHEMISTRY METHOD 07/29/2024 2:40 PM [facility] Comment:Calculation based on the??Chronic Kidney Disease Epidemiology Collaboration (CKD-EPI) equation refit??without adjustment for race. BUN/Creatinine Ratio 11.5 LAB CHEMISTRY METHOD 07/29/2024 2:40 PM [facility] Calcium 8.5 8.5 - 10.5 mg/dL LAB CHEMISTRY METHOD 07/29/2024 2:40 PM [facility] AST (SGOT) 15 10 - 42 unit/L LAB CHEMISTRY METHOD 07/29/2024 2:40 PM [facility] ALT (SGPT) 8(L) 10 - 60 unit/L LAB CHEMISTRY METHOD 07/29/2024 2:40 PM [facility] Alkaline Phosphatase 93 42 - 121 unit/L LAB CHEMISTRY METHOD 07/29/2024 2:40 PM [facility] Total Protein 5.5(L) 6.0 - 8.0 g/dL LAB CHEMISTRY METHOD 07/29/2024 2:40 PM [facility] Albumin 1.5(L) 3.2 - 5.0 g/dL LAB CHEMISTRY METHOD 07/29/2024 2:40 PM [facility] Total Bilirubin 0.2 0.0 - 1.4 mg/dL LAB CHEMISTRY METHOD 07/29/2024 2:40 PM [facility] Blood Venous blood specimen / Unknown Venipuncture / Unknown 07/29/2024 10:02 AM EST 07/29/2024 12:19 PM EST us Tabby Bledsoe MD LAB BLOOD ORDERABLES Fin al Result [facility] [address] [place] [address], [place] [phone] * (ABNORMAL) Complete blood count (07/29/2024 10:02 AM EST) WBC 6.7 4.8 - 10.8 K/mcL LAB HEMETOLOGY METHOD 07/29/2024 2:00 PM [facility] RBC 2.80(L) 4.50 - 5.50 M/mcL LAB HEMETOLOGY METHOD 07/29/2024 2:00 PM [facility] Hemoglobin 7.3(L) 13.5 - 17.5 g/dL LAB HEMETOLOGY METHOD 07/29/2024 2:00 PM [facility] Hematocrit 25.3(L) 42.0 - 54.0 % LAB HEMETOLOGY METHOD 07/29/2024 2:00 PM [facility] MCV 90.0 79.0 - 98.0 FL LAB HEMETOLOGY METHOD 07/29/2024 2:00 PM [facility] MCH 26.0(L) 27.0 - 32.0 pcg LAB HEMETOLOGY METHOD 07/29/2024 2:00 PM [facility] MCHC 28.9(L) 32.0 - 37.0 g/dL LAB HEMETOLOGY METHOD 07/29/2024 2:00 PM [facility] RDW 19.8(H) 11.0 - 15.0 % LAB HEMETOLOGY METHOD 07/29/2024 2:00 PM [facility] Platelets 240 130 - 400 K/mcL LAB HEMETOLOGY METHOD 07/29/2024 2:00 PM [facility] MPV 9.5 7.0 - 11.0 FL LAB HEMETOLOGY METHOD 07/29/2024 2:00 PM [facility] NRBC 0.0 <1.0 % LAB HEMETOLOGY METHOD 07/29/2024 2:00 PM [facility] NRBC Absolute 0.00 <0.10 K/mcL LAB HEMETOLOGY METHOD 07/29/2024 2:00 PM [facility] Blood Venous blood specimen / Unknown Venipuncture / Unknown 07/29/2024 10:02 AM EST 07/29/2024 12:19 PM EST Tabby Bledsoe MD LAB BLOOD ORDERABLES Fin al Result [facility] [address] [place] [address], documented in this encounter Visit Diagnoses Diagnosis Bacteremia documented in this encounter Additional Health Concerns Infection Onset Date Last Indicated Resolved Time ESBL 06/22/2024 06/22/2024 documented as of this encounter Care Teams Hand Cloth Folder Relationship Specialty Start Date End Date Uday Sheehan MD [address] [place] [address] Dr Donna [place] PCP - General Recovery Operator Helper 12/19/16 documented as of this encounter
--- OUTSIDE RECORDS SUMMARY | 2024-11-14 14:06 | XMS_ITS | Encounter Summary ---
Author Organization [facility] Address [address] [place] [address] Care Team Providers Care Software Business Analyst Name Role Phone Uday Sheehan Primary Care Provider [phone] Encounter Details Date Type Department Care Team (Late st Contact Info) Description 05/14/2024 Lab Requisition [facility] [place] [facility] [address] [place] [address] Valarie Pierson MD [address] [place] [address] Acute and chronic respiratory failure with hypoxia; [...] this encounter Procedures * Due to [place] [employer] law, this organization might not be sharing negative HIV tests. Procedure Name Priority Date/Time Associated Diagnosis Comments BASIC METABOLIC PANEL Routine 05/14/2024 10:15 AM EST Acute and chronic respiratory failure with hypoxia (HCC) No diagnosis documented in this encounter Results * Due to [place] [employer] law, this organization might not be sharing negative HIV tests. * (ABNORMAL) Basic Metabolic Panel (05/14/2024 10:15 AM EST) NA 141 136 - 145 mmol/L 05/14/2024 10:44 AM EST [facility] K 3.7 3.5 - 5.1 mmol/L 05/14/2024 10:44 AM EST [facility] Cl 102 98 - 109 mmol/L 05/14/2024 10:44 AM EST [facility] CO2 28 22 - 32 mmol/L 05/14/2024 10:44 AM EST [facility] BUN 34(H) 8 - 23 mg/dL 05/14/2024 10:44 AM EST [facility] Creatinine 1.69(H) 0.50 - 1.12 mg/dL 05/14/2024 10:44 AM [facility] Glucose 100(H) 60 - 99 mg/dL 05/14/2024 10:44 AM EST [facility] Calcium 9.4 8.4 - 10.4 mg/dL 05/14/2024 10:44 AM EST [facility] Anion Gap 15 >=0 05/14/2024 10:44 AM [facility] eGFR 40(L) >=60 mL/min/1. 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
--- OUTSIDE RECORDS SUMMARY | 2024-11-14 14:06 | XMS_ITS | Encounter Summary ---
Author Organization [facility] Address [address] [place] [address] Care Team Providers Care Dolphin Trainer Name Role Phone Uday Sheehan Primary Care Provider [phone] Encounter Details Date Type Department Care Team (Late st Contact Info) Description 04/29/2024 Lab Requisition [facility] Lab [address] [place] [address] Lidia Barry, CB [address] [place] [address] Acute and chronic respiratory failure with hypoxia; [...] 10.8 10*3/uL 04/29/2024 1:00 PM EDT [facility] RBC 2.81(L) 4.70 - 6.10 10*6/uL 04/29/2024 1:00 PM EDT [facility] Hemoglobin 7.7(L) 13.7 - 16.5 g/dL 04/29/2024 1:00 PM EDT [facility] Hematocrit 24.5(L) 40.5 - 48.5 % 04/29/2024 1:00 PM EDT [facility] MCV 87.2 80.0 - 94.0 fL 04/29/2024 1:00 PM EDT [facility] MCH 27.4 26.0 - 34.0 pg 04/29/2024 1:00 PM EDT [facility] MCHC 31.4 31.0 - 36.0 g/dL 04/29/2024 1:00 PM EDT [facility] RDW 15.7(H) 12.0 - 15.0 % 04/29/2024 1:00 PM EDT [facility] RDW Standard Deviation 50.7(H) 35.1 - 43.9 fL 04/29/2024 1:00 PM EDT [facility] Platelets 141 140 - 440 10*3/uL 04/29/2024 1:00 PM EDT [facility] MPV 11.0 9.4 - 12.4 fL 04/29/2024 1:00 PM EDT [facility] Neutrophil % 51.9 50.0 - 75.0 % 04/29/2024 1:00 PM EDT [facility] Immature Grans % 0.2 0.0 - 0.9 % 04/29/2024 1:00 PM EDT [facility] Lymphocyte % 26.7 20.0 - 44.0 % 04/29/2024 1:00 PM EDT [facility] Monocyte % 14.3(H) 0.0 - 14.0 % 04/29/2024 1:00 PM EDT [facility] Eosinophil % 6.3(H) 0.0 - 5.0 % 04/29/2024 1:00 PM EDT [facility] Basophil % 0.6 0.0 - 2.0 % 04/29/2024 1:00 PM EDT [facility] Neutrophil # 2.47 1.80 - 7.70 10*3/uL 04/29/2024 1:00 PM EDT [facility] Immature Grans # <0.03 0.00 - 0.03 10*3/uL 04/29/2024 1:00 PM EDT [facility] Lymphocyte # 1.30 1.00 - 4.75 10*3/uL 04/29/2024 1:00 PM EDT [facility] Monocyte # 0.70 0.00 - 6.00 10*3/uL 04/29/2024 1:00 PM EDT [facility] Eosinophil # 0.30 0.00 - 0.80 10*3/uL 04/29/2024 1:00 PM EDT [facility] Basophil # <0.03 0.00 - 0.20 10*3/uL 04/29/2024 1:00 PM EDT [facility] nRBC % 0.0 0 - 0 /100 WBCs 04/29/2024 1:00 PM EDT [facility] nRBC # <0.01 0.00 - 0.13 10*3/uL 04/29/2024 1:00 PM EDT [facility] Blood Structure of peripheral vein / Unknown Venipuncture / Unknown 04/29/2024 12:28 PM EDT 04/29/2024 12:29 PM EDT us Lidia Barry C [employer] LAB BLOOD ORDERABLES Final R esult [facility] [address] [place] [address] [place] [address], * (ABNORMAL) Comprehensive Metabolic Panel (04/29/2024 12:28 PM EDT) NA 140 136 - 145 mmol/L 04/29/2024 1:18 PM EDT [facility] K 3.8 3.5 - 5.1 mmol/L 04/29/2024 1:18 PM EDT [facility] Cl 99 98 - 109 mmol/L 04/29/2024 1:18 PM EDT [facility] CO2 32 22 - 32 mmol/L 04/29/2024 1:18 PM EDT [facility] Anion Gap 13 >=0 04/29/2024 1:18 PM EDT [facility] Glucose 92 60 - 99 mg/dL 04/29/2024 1:18 PM EDT [facility] Creatinine 1.44(H) 0.50 - 1.12 mg/dL 04/29/2024 1:18 PM EDT [facility] Calcium 9.5 8.4 - 10.4 mg/dL 04/29/2024 1:18 PM EDT [facility] Total Protein 6.1(L) 6.6 - 8.7 g/dL 04/29/2024 1:18 PM EDT [facility] Albumin 2.9(L) 3.5 - 5.0 g/dL 04/29/2024 1:18 PM EDT [facility] Bilirubin, Total 0.3 0.2 - 1.2 mg/dL 04/29/2024 1:18 PM EDT [facility] Alkaline Phosphatase 92 40 - 129 U/L 04/29/2024 1:18 PM EDT [facility] AST 43(H) 0 - 40 U/L 04/29/2024 1:18 PM EDT [facility] ALT 43(H) <=41 U/L 04/29/2024 1:18 PM EDT [facility] BUN 40(H) 8 - 23 mg/dL 04/29/2024 1:18 PM EDT [facility] eGFR 48(L) >=60 mL/min/1. 73m2 04/29/2024 1:18 PM EDT [facility] Comment:The estimated glomer ular [...] 4.2 g/dL 04/29/2024 1:18 PM EDT [facility] A/G Ratio 0.9(L) 1.5 - 3.0 04/29/2024 1:18 PM EDT [facility] Blood Structure of peripheral vein / Unknown Venipuncture / Unknown 04/29/2024 12:28 PM EDT 04/29/2024 12:29 PM EDT [facility] LAB BLOOD ORDERABLES Final R esult [facility] [address] [place] [address] [address] [place] [address], documented in this encounter Visit Diagnoses Diagnosis Acute and chronic respiratory failure with hypoxia (HCC) No diagnosis documented in this encounter Additional Health Concerns Infection Onset Date Last Indicated Resolved Time 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
--- OUTSIDE RECORDS SUMMARY | 2024-11-14 14:06 | XMS_ITS | Encounter Summary ---
Author Organization [facility] Address [address] [place] [address] Care Team Providers Care Housekeeping And Laundry Team Leader Name Role Phone Uday Sheehan MD Primary Care Provider [phone] Encounter Details Date Type Department Care Team (Late st Contact Info) Description 09/15/2024 Lab Requisition [facility] - Main Lab [address] [facility] [place] [address] Tabby Bledsoe MD [address] [address] Bacteremia Social History Tobacco Use Types Packs/Day [...] documented as of this encounter Care Teams Housekeeping And Laundry Team Leader Relationship Specialty Start Date End Date Uday Sheehan MD [address] [place] [address] PCP - General Vice President Fixed Income 12/19/16 documented as of this encounter
--- OUTSIDE RECORDS SUMMARY | 2024-11-14 14:06 | XMS_ITS | Encounter Summary ---
Author Organization [facility] Address [address] [place] [address] Care Team Providers Care Dukey Rider Name Role Phone Uday Sheehan Primary Care Provider [phone] Encounter Details Date Type Department Care Team (Late st Contact Info) Description 03/29/2024 Orders Only [facility] [address] [place] [address] Vasquez Quintanilla MD [address] [place] [address] Social History Tobacco Use Types Packs/Day Years [...] documented as of this encounter Care Teams Dukey Rider Relationship Specialty Start Date End Date Uday Sheehan [address] [place] [address] [place] [address] PCP - General Internal Medicine 03/27/24 documented as of this encounter
--- OUTSIDE RECORDS SUMMARY | 2024-11-14 14:06 | XMS_ITS | Encounter Summary ---
Author Organization [facility] Address [address] [place] [address] Care Team Providers Care Oil Distributor Tender Name Role Phone Uday Sheehan MD Primary Care Provider [phone] Encounter Details Date Type Department Care Team (Late st Contact Info) Description 09/05/[address] [facility] - Main Lab [address] [place] [address] Tabby Bledsoe MD [address] [address] Osteomyelitis, unspecified (CMS/HCC V24, CMS/HCC V28); Extended [...] LAB CHEMISTRY METHOD 09/05/2024 10:44 AM EST [facility] ([facility]) [facility] Blood Venous blood specimen / Unknown Venipuncture / Unknown 09/05/2024 6:37 AM EST 09/05/2024 9:06 AM EST us Tabby Bledsoe MD LAB BLOOD ORDERABLES Fin al Result [facility] ([facility]) [facility] [address] [place] [address], documented in this encounter Visit Diagnoses Diagnosis Osteomyelitis, unspecified ([facility] V24, [facility] V28) Extended spectrum beta lactamase (ESBL) resistance documented in this encounter Additional Health Concerns Infection Onset Date Last Indicated Resolved Time ESBL 06/22/2024 06/22/2024 documented as of this encounter Care Teams Oil Distributor Tender Relationship Specialty Start Date End Date Uday Sheehan MD [address] [place] [address] Dr Thompson [place] PCP - General Audiology Technician 12/19/16 documented as of this encounter
--- OUTSIDE RECORDS SUMMARY | 2024-11-14 14:06 | XMS_ITS | Encounter Summary ---
Author Organization [facility] Address [address] [place] [address] Care Team Providers Care Mixing Machine Attendant Name Role Phone Uday Sheehan MD Primary Care Provider [phone] Encounter Details Date Type Department Care Team (Late st Contact Info) Description 07/15/2024 Lab Requisition [facility] - Main Lab [address] [facility] [place] [place] [address] Tabby Bledsoe MD [address] [facility] [address] [place], [place] [id number] Essential (primary) hypertension; Hypothyroidism, unspecified; Unspecified atrial [...] mmol/L LAB CHEMISTRY METHOD 07/16/2024 10:45 AM [facility] Potassium 3.6 3.5 - 5.5 mmol/L LAB CHEMISTRY METHOD 07/16/2024 10:45 AM [facility] Chloride 110 96 - 110 mmol/L LAB CHEMISTRY METHOD 07/16/2024 10:45 AM [facility] CO2 31 21 - 32 mmol/L LAB CHEMISTRY METHOD 07/16/2024 10:45 AM [facility] Anion Gap 4 3 - 11 LAB CHEMISTRY METHOD 07/16/2024 10:45 AM [facility] Glucose 107(H) 70 - 100 mg/dL LAB CHEMISTRY METHOD 07/16/2024 10:45 AM [facility] BUN 29(H) 5 - 25 mg/dL LAB CHEMISTRY METHOD 07/16/2024 10:45 AM [facility] Creatinine 1.79(H) 0.70 - 1.30 mg/dL LAB CHEMISTRY METHOD 07/16/2024 10:45 AM [facility] eGFR 37(L) >=60 mL/min/1. 73m2 LAB CHEMISTRY METHOD 07/16/2024 10:45 AM [facility] Comment:Calculation based on the??Chronic Kidney Disease Epidemiology Collaboration (CKD-EPI) equation refit??without adjustment for race. BUN/Creatinine Ratio 16.2 LAB CHEMISTRY METHOD 07/16/2024 10:45 AM [facility] Calcium 9.9 8.5 - 10.5 mg/dL LAB CHEMISTRY METHOD 07/16/2024 10:45 AM [facility] AST (SGOT) 20 10 - 42 unit/L LAB CHEMISTRY METHOD 07/16/2024 10:45 AM [facility] ALT (SGPT) 12 10 - 60 unit/L LAB CHEMISTRY METHOD 07/16/2024 10:45 AM [facility] Alkaline Phosphatase 106 42 - 121 unit/L LAB CHEMISTRY METHOD 07/16/2024 10:45 AM EST [facility] Total Protein 6.0 6.0 - 8.0 g/dL LAB CHEMISTRY METHOD 07/16/2024 10:45 AM [facility] Albumin 1.6(L) 3.2 - 5.0 g/dL LAB CHEMISTRY METHOD 07/16/2024 10:45 AM [facility] Total Bilirubin 0.4 0.0 - 1.4 mg/dL LAB CHEMISTRY METHOD 07/16/2024 10:45 AM [facility] Blood Venous blood specimen / Unknown Venipuncture / Unknown 07/16/2024 5:50 AM EST 07/16/2024 9:42 AM EST us Tabby Bledsoe MD LAB BLOOD ORDERABLES Fin al Result [facility] [address] [place] [address], [place] [phone] * (ABNORMAL) Complete blood count (07/16/2024 5:50 AM EST) WBC 6.0 4.8 - 10.8 K/mcL LAB HEMETOLOGY METHOD 07/16/2024 9:59 AM [facility] RBC 2.90(L) 4.50 - 5.50 M/mcL LAB HEMETOLOGY METHOD 07/16/2024 9:59 AM [facility] Hemoglobin 7.5(L) 13.5 - 17.5 g/dL LAB HEMETOLOGY METHOD 07/16/2024 9:59 AM [facility] Hematocrit 25.1(L) 42.0 - 54.0 % LAB HEMETOLOGY METHOD 07/16/2024 9:59 AM [facility] MCV 86.9 79.0 - 98.0 FL LAB HEMETOLOGY METHOD 07/16/2024 9:59 AM EST [facility] MCH 26.0(L) 27.0 - 32.0 pcg LAB HEMETOLOGY METHOD 07/16/2024 9:59 AM EST [facility] MCHC 29.9(L) 32.0 - 37.0 g/dL LAB HEMETOLOGY METHOD 07/16/2024 9:59 AM EST [facility] RDW 19.1(H) 11.0 - 15.0 % LAB HEMETOLOGY METHOD 07/16/2024 9:59 AM EST [facility] Platelets 247 130 - 400 K/mcL LAB HEMETOLOGY METHOD 07/16/2024 9:59 AM [facility] MPV 9.7 7.0 - 11.0 FL LAB HEMETOLOGY METHOD 07/16/2024 9:59 AM EST [facility] NRBC 0.0 <1.0 % LAB HEMETOLOGY METHOD 07/16/2024 9:59 AM [facility] NRBC Absolute 0.00 <0.10 K/mcL LAB HEMETOLOGY METHOD 07/16/2024 9:59 AM [facility] Blood Venous blood specimen / Unknown Venipuncture / Unknown 07/16/2024 5:50 AM EST 07/16/2024 9:42 AM EST us Tabby Bledsoe MD LAB BLOOD ORDERABLES Fin al Result [facility] [address] [place] [address], documented in this encounter Visit Diagnoses Diagnosis Essential (primary) hypertension Unspecified essential hypertension Hypothyroidism, unspecified Unspecified atrial fibrillation (CMS/HCC V24, CMS/HCC V28) documented in this encounter Additional Health Concerns Infection Onset Date Last Indicated Resolved Time ESBL 06/22/2024 06/22/2024 documented as of this encounter Care Teams Mixing Machine Attendant Relationship Specialty Start Date End Date Uday Sheehan MD [address] [facility] [address] Donna [place] PCP - General Social Media Developer 12/19/16 documented as of this encounter
--- OUTSIDE RECORDS SUMMARY | 2024-11-14 14:06 | XMS_ITS | Encounter Summary ---
Author Organization [facility] Address [address] [place] [address] Care Team Providers Care Fire Prevention Forester Name Role Phone Uday Sheehan Primary Care Provider [phone] Encounter Details Date Type Department Care Team (Late st Contact Info) Description 05/07/2024 Lab Requisition [facility] Site Department [address] [place] [address] [address]ell [address] [address] Acute and chronic respiratory failure with hypoxia; [...] documented as of this encounter Care Teams Fire Prevention Forester Relationship Specialty Start Date End Date Uday Sheehan [address] [place] [address] [place] [address] PCP - General Internal Medicine 03/27/24 documented as of this encounter
--- OUTSIDE RECORDS SUMMARY | 2024-11-14 14:06 | XMS_ITS | Encounter Summary ---
Author Organization [facility] Address [address] [place] [address] Care Team Providers Care Group Therapist Name Role Phone Uday Sheehan MD Primary Care Provider [phone] Encounter Details Date Type Department Care Team (Late st Contact Info) Description 09/18/2024 Lab Requisition [facility] - Main Lab [address] [place] [address] Tabby Bledsoe MD [address] [phone] Anemia, unspecified; Other disorders of electrolyte and [...] mmol/L LAB CHEMISTRY METHOD 09/18/2024 1:01 PM [facility] Potassium 4.1 3.5 - 5.5 mmol/L LAB CHEMISTRY METHOD 09/18/2024 1:01 PM [facility] Chloride 106 96 - 110 mmol/L LAB CHEMISTRY METHOD 09/18/2024 1:01 PM [facility] CO2 29 21 - 32 mmol/L LAB CHEMISTRY METHOD 09/18/2024 1:01 PM [facility] Anion Gap 6 3 - 11 LAB CHEMISTRY METHOD 09/18/2024 1:01 PM [facility] Glucose 81 70 - 100 mg/dL LAB CHEMISTRY METHOD 09/18/2024 1:01 PM [facility] BUN 25 5 - 25 mg/dL LAB CHEMISTRY METHOD 09/18/2024 1:01 PM [facility] Creatinine 1.40(H) 0.70 - 1.30 mg/dL LAB CHEMISTRY METHOD 09/18/2024 1:01 PM [facility] eGFR 50(L) >=60 mL/min/1. 73m2 LAB CHEMISTRY METHOD 09/18/2024 1:01 PM [facility] Comment:Calculation based on the??Chronic Kidney Disease Epidemiology Collaboration (CKD-EPI) equation refit??without adjustment for race. BUN/Creatinine Ratio 17.9 LAB CHEMISTRY METHOD 09/18/2024 1:01 PM [facility] Calcium 8.2(L) 8.5 - 10.5 mg/dL LAB CHEMISTRY METHOD 09/18/2024 1:01 PM [facility] AST (SGOT) 20 10 - 42 unit/L LAB CHEMISTRY METHOD 09/18/2024 1:01 PM [facility] ALT (SGPT) 10 10 - 60 unit/L LAB CHEMISTRY METHOD 09/18/2024 1:01 PM [facility] Alkaline Phosphatase 82 42 - 121 unit/L LAB CHEMISTRY METHOD 09/18/2024 1:01 PM EDT [facility] Total Protein 5.2(L) 6.0 - 8.0 g/dL LAB CHEMISTRY METHOD 09/18/2024 1:01 PM [facility] Albumin 1.3(L) 3.2 - 5.0 g/dL LAB CHEMISTRY METHOD 09/18/2024 1:01 PM EDT [facility] Total Bilirubin 0.3 0.0 - 1.4 mg/dL LAB CHEMISTRY METHOD 09/18/2024 1:01 PM EDT [facility] Blood Venous blood specimen / Unknown Venipuncture / Unknown 09/18/2024 8:38 AM EDT 09/18/2024 10:35 AM EDT us Tabby Bledsoe MD LAB BLOOD ORDERABLES Fin al Result [facility] [address] [place] [address], * (ABNORMAL) Complete blood count (09/18/2024 8:38 AM EDT) WBC 6.7 4.8 - 10.8 K/mcL LAB HEMETOLOGY METHOD 09/18/2024 12:22 PM [facility] RBC 2.70(L) 4.50 - 5.50 M/mcL LAB HEMETOLOGY METHOD 09/18/2024 12:22 PM [facility] Hemoglobin 7.5(L) 13.5 - 17.5 g/dL LAB HEMETOLOGY METHOD 09/18/2024 12:22 PM [facility] Hematocrit 25.5(L) 42.0 - 54.0 % LAB HEMETOLOGY METHOD 09/18/2024 12:22 PM [facility] MCV 94.8 79.0 - 98.0 FL LAB HEMETOLOGY METHOD 09/18/2024 12:22 PM EDT [facility] MCH 27.9 27.0 - 32.0 pcg LAB HEMETOLOGY METHOD 09/18/2024 12:22 PM EDT [facility] MCHC 29.4(L) 32.0 - 37.0 g/dL LAB HEMETOLOGY METHOD 09/18/2024 12:22 PM EDT [facility] RDW 16.5(H) 11.0 - 15.0 % LAB HEMETOLOGY METHOD 09/18/2024 12:22 PM EDT [facility] Platelets 192 130 - 400 K/mcL LAB HEMETOLOGY METHOD 09/18/2024 12:22 PM EDT [facility] MPV 9.9 7.0 - 11.0 FL LAB HEMETOLOGY METHOD 09/18/2024 12:22 PM EDT [facility] NRBC 0.0 <1.0 % LAB HEMETOLOGY METHOD 09/18/2024 12:22 PM EDT [facility] NRBC Absolute 0.00 <0.10 K/mcL LAB HEMETOLOGY METHOD 09/18/2024 12:22 PM [facility] Blood Venous blood specimen / Unknown Venipuncture / Unknown 09/18/2024 8:38 AM EDT 09/18/2024 10:35 AM EDT us Tabby Bledsoe MD LAB BLOOD ORDERABLES Fin al Result [facility] [address] [place] [address], documented in this encounter Visit Diagnoses Diagnosis Anemia, unspecified Other disorders of electrolyte and fluid balance, not elsewhere classified documented in this encounter Additional Health Concerns Infection Onset Date Last Indicated Resolved Time ESBL 06/22/2024 06/22/2024 documented as of this encounter Care Teams Group Therapist Relationship Specialty Start Date End Date Uday Sheehan MD [address] [facility] [address] Donna [place] PCP - General Credit Review Analyst 12/19/16 documented as of this encounter
--- OUTSIDE RECORDS SUMMARY | 2024-11-14 14:06 | XMS_ITS | Encounter Summary ---
Author Organization [facility] Address [address] [place] [address] Care Team Providers Care Skin Fitter Name Role Phone Uday Sheehan MD Primary Care Provider [phone] Encounter Details Date Type Department Care Team (Late st Contact Info) Description 08/03/2024 Lab Requisition [facility] [address] [place] [address] Tabby Bledsoe MD [address] [address] Bacteremia Social History Tobacco Use Types Packs/Day [...] LAB CHEMISTRY METHOD 08/05/2024 1:55 PM EST [facility] Potassium 3.6 3.5 - 5.5 mmol/L LAB CHEMISTRY METHOD 08/05/2024 1:55 PM [facility] Chloride 106 96 - 110 mmol/L LAB CHEMISTRY METHOD 08/05/2024 1:55 PM [facility] CO2 25 21 - 32 mmol/L LAB CHEMISTRY METHOD 08/05/2024 1:55 PM [facility] Anion Gap 10 3 - 11 LAB CHEMISTRY METHOD 08/05/2024 1:55 PM [facility] Glucose 70 70 - 100 mg/dL LAB CHEMISTRY METHOD 08/05/2024 1:55 PM [facility] BUN 31(H) 5 - 25 mg/dL LAB CHEMISTRY METHOD 08/05/2024 1:55 PM [facility] Creatinine 2.20(H) 0.70 - 1.30 mg/dL LAB CHEMISTRY METHOD 08/05/2024 1:55 PM [facility] eGFR 29(L) >=60 mL/min/1. 73m2 LAB CHEMISTRY METHOD 08/05/2024 1:55 PM [facility] Comment:Calculation based on the??Chronic Kidney Disease Epidemiology Collaboration (CKD-EPI) equation refit??without adjustment for race. BUN/Creatinine Ratio 14.1 LAB CHEMISTRY METHOD 08/05/2024 1:55 PM [facility] Calcium 8.3(L) 8.5 - 10.5 mg/dL LAB CHEMISTRY METHOD 08/05/2024 1:55 PM [facility] AST (SGOT) 30 10 - 42 unit/L LAB CHEMISTRY METHOD 08/05/2024 1:55 PM [facility] ALT (SGPT) 17 10 - 60 unit/L LAB CHEMISTRY METHOD 08/05/2024 1:55 PM [facility] Alkaline Phosphatase 103 42 - 121 unit/L LAB CHEMISTRY METHOD 08/05/2024 1:55 PM [facility] Total Protein 5.4(L) 6.0 - 8.0 g/dL LAB CHEMISTRY METHOD 08/05/2024 1:55 PM EST [facility] Albumin 1.4(L) 3.2 - 5.0 g/dL LAB CHEMISTRY METHOD 08/05/2024 1:55 PM [facility] Total Bilirubin 0.3 0.0 - 1.4 mg/dL LAB CHEMISTRY METHOD 08/05/2024 1:55 PM [facility] Blood Venous blood specimen / Unknown Venipuncture / Unknown 08/05/2024 7:45 AM EST 08/05/2024 12:00 PM EST us Tabby Bledsoe MD LAB BLOOD ORDERABLES Fin al Result [facility] [address] [place] [address], [place] [phone] * (ABNORMAL) Complete blood count (08/05/2024 7:45 AM EST) WBC 11.9(H) 4.8 - 10.8 K/mcL LAB HEMETOLOGY METHOD 08/05/2024 1:29 PM [facility] RBC 2.50(L) 4.50 - 5.50 M/mcL LAB HEMETOLOGY METHOD 08/05/2024 1:29 PM [facility] Hemoglobin 6.5(L) 13.5 - 17.5 g/dL LAB HEMETOLOGY METHOD 08/05/2024 1:29 PM [facility] Hematocrit 22.0(L) 42.0 - 54.0 % LAB HEMETOLOGY METHOD 08/05/2024 1:29 PM [facility] MCV 87.6 79.0 - 98.0 FL LAB HEMETOLOGY METHOD 08/05/2024 1:29 PM [facility] MCH 25.9(L) 27.0 - 32.0 pcg LAB HEMETOLOGY METHOD 08/05/2024 1:29 PM [facility] MCHC 29.5(L) 32.0 - 37.0 g/dL LAB HEMETOLOGY METHOD 08/05/2024 1:29 PM EST [facility] RDW 19.6(H) 11.0 - 15.0 % LAB HEMETOLOGY METHOD 08/05/2024 1:29 PM [facility] Platelets 268 130 - 400 K/mcL LAB HEMETOLOGY METHOD 08/05/2024 1:29 PM [facility] MPV 9.0 7.0 - 11.0 FL LAB HEMETOLOGY METHOD 08/05/2024 1:29 PM [facility] NRBC 0.0 <1.0 % LAB HEMETOLOGY METHOD 08/05/2024 1:29 PM [facility] NRBC Absolute 0.00 <0.10 K/mcL LAB HEMETOLOGY METHOD 08/05/2024 1:29 PM [facility] Blood Venous blood specimen / Unknown Venipuncture / Unknown 08/05/2024 7:45 AM EST 08/05/2024 12:00 PM EST us Tabby Bledsoe MD LAB BLOOD ORDERABLES Fin al Result [facility] [address] [place] [address], documented in this encounter Visit Diagnoses Diagnosis Bacteremia documented in this encounter Additional Health Concerns Infection Onset Date Last Indicated Resolved Time ESBL 06/22/2024 06/22/2024 documented as of this encounter Care Teams Skin Fitter Relationship Specialty Start Date End Date Uday Sheehan MD [address] [place] [address] Dr Donna [place] PCP - General Farm Operator 12/19/16 documented as of this encounter
--- OUTSIDE RECORDS SUMMARY | 2024-11-14 14:06 | XMS_ITS | Encounter Summary ---
Author Organization [facility] Address [address] [place] [address] Care Team Providers Care Coal Or Ore Controller Name Role Phone Uday Sheehan Primary Care Provider [phone] Encounter Details Date Type Department Care Team (Late st Contact Info) Description 03/25/[address] [facility] [address] [place] [address] Cecilio Bautista PA [address] [place] [address] Acute and chronic respiratory failure with hypoxia; [...] Cells (03/26/2024 9:24 AM EDT) Product Code [id number] [facility] Unit Number [id number] [facility] Unit ABO O [facility] Unit RH POS [facility] Crossmatch Compatible [facility] Dispense Status Presumed Transfuse [facility] Blood Expiration Date [facility] Blood Type Barcode 5100 [facility] Dispensed Volume 291 ML [facility] Product Code [id number] [facility] Unit Number [id number] [facility] Unit ABO O [facility] Unit RH POS [facility] Crossmatch Compatible [facility] Dispense Status Presumed Transfuse [facility] Blood Expiration Date [facility] Blood Type Barcode 5100 [facility] Dispensed Volume 377 ML [facility] 03/26/2024 9:24 AM EDT 03/25/2024 11:34 AM EDT us Cecilio [facility] BLOOD BANK PRODUCT ORDERABLE S Final Result [facility] [address] [place] [address], * (ABNORMAL) Respiratory Culture w/Gram Stain (03/25/2024 5:50 AM EDT) Respiratory Culture Few Methicillin resistant Staphylococcus aureus (MRSA)(A) MINIMUM INHIBITORY CONCENTRATION ([place]) 03/28/2024 8:28 AM EDT [facility] Respiratory Culture Few Debora krusei(A) MINIMUM INHIBITORY CONCENTRATION ([place]) 03/28/2024 8:28 AM EDT [facility] Gram Stain Result <10 per LPF Epithelial Cells 03/28/2024 8:28 AM EDT [facility] Gram Stain Result >25 per LPF White Blood Cells Seen 03/28/2024 8:28 AM EDT [facility] Gram Stain Result Few Gram Positive Bacilli 03/28/2024 8:28 AM EDT [facility] Gram Stain Result Rare Gram Positive Cocci 03/28/2024 8:28 AM EDT [facility] Sputum Sputum / Unknown Non-Blood Collection / Unknown 03/25/2024 5:50 AM EDT 03/25/2024 5:19 PM EDT Narrative [facility] - 03/28/2024 8:28 AM EDT [...] MICROBIOLOGY - GENERAL O RDERABLES Final Result [facility] [address] [place] [address], * (ABNORMAL) CBC Auto Differential (03/25/2024 5:50 AM EDT) WBC 8.5 4.8 - 10.8 10*3/uL 03/25/2024 5:56 PM EDT [facility] RBC 2.47(L) 4.70 - 6.10 10*6/uL 03/25/2024 5:56 PM EDT [facility] Hemoglobin 6.9(LL) 13.7 - 16.5 g/dL 03/25/2024 5:56 PM EDT [facility] Hematocrit 21.8(L) 40.5 - 48.5 % 03/25/2024 5:56 PM EDT [facility] MCV 88.3 80.0 - 94.0 fL 03/25/2024 5:56 PM EDT [facility] MCH 27.9 26.0 - 34.0 pg 03/25/2024 5:56 PM EDT [facility] MCHC 31.7 31.0 - 36.0 g/dL 03/25/2024 5:56 PM EDT [facility] RDW 15.6(H) 12.0 - 15.0 % 03/25/2024 5:56 PM EDT [facility] RDW Standard Deviation 50.4(H) 35.1 - 43.9 fL 03/25/2024 5:56 PM EDT [facility] Platelets 202 140 - 440 10*3/uL 03/25/2024 5:56 PM EDT [facility] MPV 10.0 9.4 - 12.4 fL 03/25/2024 5:56 PM EDT [facility] Neutrophil % 67.2 50.0 - 75.0 % 03/25/2024 5:56 PM EDT [facility] Immature Grans % 0.8 0.0 - 0.9 % 03/25/2024 5:56 PM EDT [facility] Lymphocyte % 14.3(L) 20.0 - 44.0 % 03/25/2024 5:56 PM EDT [facility] Monocyte % 12.9 0.0 - 14.0 % 03/25/2024 5:56 PM EDT [facility] Eosinophil % 4.3 0.0 - 5.0 % 03/25/2024 5:56 PM EDT [facility] Basophil % 0.5 0.0 - 2.0 % 03/25/2024 5:56 PM EDT [facility] Neutrophil # 5.69 1.80 - 7.70 10*3/uL 03/25/2024 5:56 PM EDT [facility] Immature Grans # 0.07(H) 0.00 - 0.03 10*3/uL 03/25/2024 5:56 PM EDT [facility] Lymphocyte # 1.20 1.00 - 4.75 10*3/uL 03/25/2024 5:56 PM EDT [facility] Monocyte # 1.10 0.00 - 6.00 10*3/uL 03/25/2024 5:56 PM EDT [facility] Eosinophil # 0.40 0.00 - 0.80 10*3/uL 03/25/2024 5:56 PM EDT [facility] Basophil # <0.03 0.00 - 0.20 10*3/uL 03/25/2024 5:56 PM EDT [facility] nRBC % 0.0 0 - 0 /100 WBCs 03/25/2024 5:56 PM EDT [facility] nRBC # <0.01 0.00 - 0.13 10*3/uL 03/25/2024 5:56 PM EDT [facility] Blood Structure of peripheral vein / Unknown Venipuncture / Unknown 03/25/2024 5:50 AM EDT 03/25/2024 5:19 PM EDT us Cecilio ZHU LAB BLOOD ORDERABLES Final R esult Performing Organization Address City/State/[facility] Co de Phone Number [facility] [address] [place] [address], * Type and Screen (03/25/2024 5:50 AM EDT) ABO Blood Type O 03/25/2024 12:36 PM EDT [facility] RH Type Positive 03/25/2024 12:36 PM EDT [facility] Expiration Date/Time 2024-03-28 23:59 03/25/2024 12:36 PM EDT [facility] Antibody Screen Negative 03/25/2024 12:36 PM EDT [facility] Blood Structure of peripheral vein / Unknown Venipuncture / Unknown 03/25/2024 5:50 AM EDT 03/25/2024 11:34 AM EDT us Cecilio ZHU LAB BLOOD BANK TEST ORDERABL ES Edited Result - Final [facility] [address] [place] [address], [place] * (ABNORMAL) CBC Auto Differential (03/25/2024 5:50 AM EDT) WBC 8.3 4.8 - 10.8 10*3/uL 03/25/2024 1:27 PM EDT [facility] RBC 2.35(L) 4.70 - 6.10 10*6/uL 03/25/2024 1:27 PM EDT [facility] Hemoglobin 6.6(LL) 13.7 - 16.5 g/dL 03/25/2024 1:27 PM EDT [facility] Hematocrit 21.0(L) 40.5 - 48.5 % 03/25/2024 1:27 PM EDT [facility] MCV 89.4 80.0 - 94.0 fL 03/25/2024 1:27 PM EDT [facility] MCH 28.1 26.0 - 34.0 pg 03/25/2024 1:27 PM EDT [facility] MCHC 31.4 31.0 - 36.0 g/dL 03/25/2024 1:27 PM EDT [facility] RDW 16.1(H) 12.0 - 15.0 % 03/25/2024 1:27 PM EDT [facility] RDW Standard Deviation 51.3(H) 35.1 - 43.9 fL 03/25/2024 1:27 PM EDT [facility] Platelets 174 140 - 440 10*3/uL 03/25/2024 1:27 PM EDT [facility] MPV 10.9 9.4 - 12.4 fL 03/25/2024 1:27 PM EDT [facility] Neutrophil % 63.1 50.0 - 75.0 % 03/25/2024 1:27 PM EDT [facility] Immature Grans % 0.4 0.0 - 0.9 % 03/25/2024 1:27 PM EDT [facility] Lymphocyte % 17.4(L) 20.0 - 44.0 % 03/25/2024 1:27 PM EDT [facility] Monocyte % 13.8 0.0 - 14.0 % 03/25/2024 1:27 PM EDT [facility] Eosinophil % 4.8 0.0 - 5.0 % 03/25/2024 1:27 PM EDT [facility] Basophil % 0.5 0.0 - 2.0 % 03/25/2024 1:27 PM EDT [facility] Neutrophil # 5.23 1.80 - 7.70 10*3/uL 03/25/2024 1:27 PM EDT [facility] Immature Grans # 0.03 0.00 - 0.03 10*3/uL 03/25/2024 1:27 PM EDT [facility] Lymphocyte # 1.40 1.00 - 4.75 10*3/uL 03/25/2024 1:27 PM EDT [facility] Monocyte # 1.10 0.00 - 6.00 10*3/uL 03/25/2024 1:27 PM EDT [facility] Eosinophil # 0.40 0.00 - 0.80 10*3/uL 03/25/2024 1:27 PM EDT [facility] Basophil # <0.03 0.00 - 0.20 10*3/uL 03/25/2024 1:27 PM EDT [facility] nRBC % 0.0 0 - 0 /100 WBCs 03/25/2024 1:27 PM EDT [facility] nRBC # <0.01 0.00 - 0.13 10*3/uL 03/25/2024 1:27 PM EDT [facility] Blood Structure of peripheral vein / Unknown Venipuncture / Unknown 03/25/2024 5:50 AM EDT 03/25/2024 11:34 AM EDT Cecilio ZHU LAB BLOOD ORDERABLES Final R esult Performing Organization Address [facility]/ZIP Co de Phone Number [facility] [address] [address], [place] [phone] * Ammonia (03/25/2024 5:50 AM EDT) Ammonia 46 16 - 60 umol/L 03/25/2024 12:29 PM EDT [facility] Blood Structure of peripheral vein / Unknown Venipuncture / Unknown 03/25/2024 5:50 AM EDT 03/25/2024 11:34 AM EDT Cecilio ZHU LAB BLOOD ORDERABLES Final R esult Performing Organization Address [facility] Co de Phone Number [facility] [address] [address], [place] [phone] * (ABNORMAL) Comprehensive Metabolic Panel (03/25/2024 5:50 AM EDT) NA 139 136 - 145 mmol/L 03/25/2024 12:40 PM EDT [facility] K 4.5 3.5 - 5.1 mmol/L 03/25/2024 12:40 PM EDT [facility] Cl 100 98 - 109 mmol/L 03/25/2024 12:40 PM EDT [facility] CO2 29 23 - 32 mmol/L 03/25/2024 12:40 PM EDT [facility] Anion Gap 15 >=0 03/25/2024 12:40 PM EDT [facility] Glucose 101(H) 60 - 99 mg/dL 03/25/2024 12:40 PM EDT [facility] Creatinine 0.95 0.50 - 1.12 mg/dL 03/25/2024 12:40 PM EDT [facility] Calcium 8.8 8.4 - 10.4 mg/dL 03/25/2024 12:40 PM EDT [facility] Total Protein 5.9(L) 6.6 - 8.7 g/dL 03/25/2024 12:40 PM EDT [facility] Albumin 2.8(L) 3.5 - 5.0 g/dL 03/25/2024 12:40 PM EDT [facility] Bilirubin, Total 0.5 0.2 - 1.2 mg/dL 03/25/2024 12:40 PM EDT [facility] Alkaline Phosphatase 75 40 - 129 U/L 03/25/2024 12:40 PM EDT [facility] AST 34 0 - 40 U/L 03/25/2024 12:40 PM EDT [facility] ALT 17 <=41 U/L 03/25/2024 12:40 PM T [facility] BUN 15 8 - 23 mg/dL 03/25/2024 12:40 PM T [facility] eGFR 79 >=60 mL/min/1. 73m2 03/25/2024 12:40 PM T [facility] Comment:The estimated glomer ular filtration [...] - 4.2 g/dL 03/25/2024 12:40 PM T [facility] A/G Ratio 0.9(L) 1.5 - 3.0 03/25/2024 12:40 PM T [facility] Blood Structure of peripheral vein / Unknown Venipuncture / Unknown 03/25/2024 5:50 AM EDT 03/25/2024 11:34 AM EDT us Cecilio ZHU LAB BLOOD ORDERABLES Final R esult [facility] [address] [place] [address], documented in this encounter Visit Diagnoses Diagnosis [...] as of this encounter Care Teams Coal Or Ore Controller Relationship Specialty Start Date End Date Uday Sheehan [address] [place] [address] [place] [address] PCP - General Internal Medicine 03/27/24 documented as of this encounter
--- OUTSIDE RECORDS SUMMARY | 2024-11-14 14:06 | XMS_ITS | Encounter Summary ---
Author Organization [facility] Address [address] [place] [address] Care Team Providers Care Firmware Software Verification Engineer Name Role Phone Uday Sheehan Primary Care Provider [phone] Encounter Details Date Type Department Care Team (Late st Contact Info) Description 05/18/2024 Lab Requisition [facility] [address] [place] [address] Valarie Pierson MD [address] [place] [address] Acute and chronic respiratory failure with hypoxia; [...] this encounter Procedures * Due to [employer] law, this organization might not be sharing negative HIV tests. Procedure Name Priority Date/Time Associated Diagnosis Comments BASIC METABOLIC PANEL Routine 05/18/2024 6:18 AM EST Acute and chronic respiratory failure with hypoxia (HCC) No diagnosis documented in this encounter Results * Due to [employer] law, this organization might not be sharing negative HIV tests. * (ABNORMAL) Basic Metabolic Panel (05/18/2024 6:18 AM EST) NA 143 136 - 145 mmol/L 05/18/2024 10:44 AM EST [facility] K 3.9 3.5 - 5.1 mmol/L 05/18/2024 10:44 AM EST [facility] Cl 104 98 - 109 mmol/L 05/18/2024 10:44 AM EST [facility] CO2 29 22 - 32 mmol/L 05/18/2024 10:44 AM EST [facility] BUN 33(H) 8 - 23 mg/dL 05/18/2024 10:44 AM EST [facility] Creatinine 1.70(H) 0.50 - 1.12 mg/dL 05/18/2024 10:44 AM [facility] Glucose 102(H) 60 - 99 mg/dL 05/18/2024 10:44 AM EST [facility] Calcium 9.3 8.4 - 10.4 mg/dL 05/18/2024 10:44 AM EST [facility] Anion Gap 14 >=0 05/18/2024 10:44 AM EST [facility] eGFR 39(L) >=60 mL/min/1. 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
--- OUTSIDE RECORDS SUMMARY | 2024-11-14 14:06 | XMS_ITS | Encounter Summary ---
Author Organization [facility] Address [address] [place] [address] Care Team Providers Care Meat Packer Name Role Phone Uday Sheehan Primary Care Provider [phone] Encounter Details Date Type Department Care Team (Late st Contact Info) Description 03/20/2024 Lab Requisition [facility] [address] [place] [address] Lidia Barry NP [address] [place] [address] Acute and chronic respiratory failure with hypoxia; [...] this encounter Procedures * Due to [place] [employer] law, this organization might not be sharing negative HIV tests. Procedure Name Priority Date/Time Associated Diagnosis Comments VANCOMYCIN, TROUGH Routine 03/20/2024 7: 13 AM EDT Acute and chronic respiratory failure with hypoxia (HCC) No diagnosis documented in this encounter Results * Due to [place] [employer] law, this organization might not be sharing negative HIV tests. * (ABNORMAL) Vancomycin, Trough (03/20/2024 7:13 AM EDT) Vancomycin Trough 21.5(H) 10.0 - 20.0 ug/mL 03/20/2024 7:42 AM EDT [facility] Blood Structure of peripheral vein / Unknown 03/20/2024 7:13 AM EDT 03/20/2024 7:13 AM EDT Lidia Barry DREDGE LEVER OPERATOR LAB BLOOD ORDERABLES Final R esult [facility] [address] [place] [address], documented in this encounter Visit Diagnoses Diagnosis [...] documented as of this encounter Care Teams Meat Packer Relationship Specialty Start Date End Date Uday Sheehan [address] [place] [address] dr Donna [place], [place] [address] PCP - General Internal Medicine 03/27/24 documented as of this encounter
--- OUTSIDE RECORDS SUMMARY | 2024-11-14 14:06 | XMS_ITS | Encounter Summary ---
Author Organization [facility] Address [address] [place] [address] Care Team Providers Care Supervisor Inspection Room Name Role Phone Uday Sheehan MD Primary Care Provider [phone] Encounter Details Date Type Department Care Team (Late st Contact Info) Description 09/20/2024 Lab Requisition [facility] - Main Lab [address] [place] [address] Tabby Bledsoe MD [address] [address] Bacteremia Social History Tobacco Use Types Packs/Day [...] LAB CHEMISTRY METHOD 09/23/2024 3:19 PM EDT [facility] Potassium 4.3 3.5 - 5.5 mmol/L LAB CHEMISTRY METHOD 09/23/2024 3:19 PM [facility] Chloride 99 96 - 110 mmol/L LAB CHEMISTRY METHOD 09/23/2024 3:19 PM [facility] CO2 30 21 - 32 mmol/L LAB CHEMISTRY METHOD 09/23/2024 3:19 PM [facility] Anion Gap 6 3 - 11 LAB CHEMISTRY METHOD 09/23/2024 3:19 PM [facility] Glucose 96 70 - 100 mg/dL LAB CHEMISTRY METHOD 09/23/2024 3:19 PM [facility] BUN 25 5 - 25 mg/dL LAB CHEMISTRY METHOD 09/23/2024 3:19 PM [facility] Creatinine 1.36(H) 0.70 - 1.30 mg/dL LAB CHEMISTRY METHOD 09/23/2024 3:19 PM [facility] eGFR 51(L) >=60 mL/min/1. 73m2 LAB CHEMISTRY METHOD 09/23/2024 3:19 PM [facility] Comment:Calculation based on the??Chronic Kidney Disease Epidemiology Collaboration (CKD-EPI) equation refit??without adjustment for race. BUN/Creatinine Ratio 18.4 LAB CHEMISTRY METHOD 09/23/2024 3:19 PM [facility] Calcium 8.1(L) 8.5 - 10.5 mg/dL LAB CHEMISTRY METHOD 09/23/2024 3:19 PM [facility] AST (SGOT) 63(H) 10 - 42 unit/L LAB CHEMISTRY METHOD 09/23/2024 3:19 PM [facility] ALT (SGPT) 45 10 - 60 unit/L LAB CHEMISTRY METHOD 09/23/2024 3:19 PM [facility] Alkaline Phosphatase 86 42 - 121 unit/L LAB CHEMISTRY METHOD 09/23/2024 3:19 PM [facility] Total Protein 5.3(L) 6.0 - 8.0 g/dL LAB CHEMISTRY METHOD 09/23/2024 3:19 PM EDT [facility] Albumin 1.4(L) 3.2 - 5.0 g/dL LAB CHEMISTRY METHOD 09/23/2024 3:19 PM EDT [facility] Total Bilirubin 0.3 0.0 - 1.4 mg/dL LAB CHEMISTRY METHOD 09/23/2024 3:19 PM EDT [facility] Blood Venous blood specimen / Unknown Venipuncture / Unknown 09/23/2024 7:46 AM EDT 09/23/2024 11:37 AM EDT us Tabby Bledsoe MD LAB BLOOD ORDERABLES Fin al Result [facility] [address] [place] [address], * (ABNORMAL) Complete blood count (09/23/2024 7:46 AM EDT) WBC 7.1 4.8 - 10.8 K/mcL LAB HEMETOLOGY METHOD 09/23/2024 12:42 PM [facility] RBC 2.60(L) 4.50 - 5.50 M/mcL LAB HEMETOLOGY METHOD 09/23/2024 12:42 PM [facility] Hemoglobin 7.2(L) 13.5 - 17.5 g/dL LAB HEMETOLOGY METHOD 09/23/2024 12:42 PM EDT [facility] Hematocrit 23.7(L) 42.0 - 54.0 % LAB HEMETOLOGY METHOD 09/23/2024 12:42 PM EDT [facility] MCV 91.5 79.0 - 98.0 FL LAB HEMETOLOGY METHOD 09/23/2024 12:42 PM [facility] MCH 27.8 27.0 - 32.0 pcg LAB HEMETOLOGY METHOD 09/23/2024 12:42 PM EDT [facility] MCHC 30.4(L) 32.0 - 37.0 g/dL LAB HEMETOLOGY METHOD 09/23/2024 12:42 PM EDT [facility] RDW 16.7(H) 11.0 - 15.0 % LAB HEMETOLOGY METHOD 09/23/2024 12:42 PM EDT [facility] Platelets 253 130 - 400 K/mcL LAB HEMETOLOGY METHOD 09/23/2024 12:42 PM EDT [facility] MPV 9.4 7.0 - 11.0 FL LAB HEMETOLOGY METHOD 09/23/2024 12:42 PM EDT [facility] NRBC 0.0 <1.0 % LAB HEMETOLOGY METHOD 09/23/2024 12:42 PM EDT [facility] NRBC Absolute 0.00 <0.10 K/mcL LAB HEMETOLOGY METHOD 09/23/2024 12:42 PM EDT [facility] Blood Venous blood specimen / Unknown Venipuncture / Unknown 09/23/2024 7:46 AM EDT 09/23/2024 11:37 AM EDT us Tabby Bledsoe MD LAB BLOOD ORDERABLES Fin al Result [facility] [address] [place] [address], documented in this encounter Visit Diagnoses Diagnosis Bacteremia documented in this encounter Additional Health Concerns Infection Onset Date Last Indicated Resolved Time ESBL 06/22/2024 06/22/2024 documented as of this encounter Care Teams Supervisor Inspection Room Relationship Specialty Start Date End Date Uday Sheehan MD [address] [place] [address] Dr Thompson [place] PCP - General Steel Wheel Engraver 12/19/16 documented as of this encounter
--- OUTSIDE RECORDS SUMMARY | 2024-11-14 14:06 | XMS_ITS | Encounter Summary ---
Author Organization [facility] Address [address] [place] [address] Care Team Providers Care Fine Craft Artist Name Role Phone Uday Sheehan Primary Care Provider [phone] Encounter Details Date Type Department Care Team (Late st Contact Info) Description 05/13/2024 Lab Requisition [facility] Lab [address] [place] [address] Salo Whyte MD [address] [place] [address] Acute and chronic respiratory failure with hypoxia; [...] - 10.8 10*3/uL 05/13/2024 10:06 AM EST [facility] RBC 3.01(L) 4.70 - 6.10 10*6/uL 05/13/2024 10:06 AM EST [facility] Hemoglobin 8.3(L) 13.7 - 16.5 g/dL 05/13/2024 10:06 AM EST [facility] Hematocrit 26.0(L) 40.5 - 48.5 % 05/13/2024 10:06 AM EST [facility] MCV 86.4 80.0 - 94.0 fL 05/13/2024 10:06 AM EST [facility] MCH 27.6 26.0 - 34.0 pg 05/13/2024 10:06 AM [facility] MCHC 31.9 31.0 - 36.0 g/dL 05/13/2024 10:06 AM [facility] RDW 16.8(H) 12.0 - 15.0 % 05/13/2024 10:06 AM [facility] RDW Standard Deviation 53.1(H) 35.1 - 43.9 fL 05/13/2024 10:06 AM [facility] Platelets 143 140 - 440 10*3/uL 05/13/2024 10:06 AM EST [facility] MPV 10.6 9.4 - 12.4 fL 05/13/2024 10:06 AM [facility] Neutrophil % 57.3 50.0 - 75.0 % 05/13/2024 10:06 AM [facility] Immature Grans % 0.2 0.0 - 0.9 % 05/13/2024 10:06 AM [facility] Lymphocyte % 26.4 20.0 - 44.0 % 05/13/2024 10:06 AM EST [facility] Monocyte % 11.2 0.0 - 14.0 % 05/13/2024 10:06 AM EST [facility] Eosinophil % 4.6 0.0 - 5.0 % 05/13/2024 10:06 AM EST [facility] Basophil % 0.3 0.0 - 2.0 % 05/13/2024 10:06 AM EST [facility] Neutrophil # 3.36 1.80 - 7.70 10*3/uL 05/13/2024 10:06 AM EST [facility] Immature Grans # <0.03 0.00 - 0.03 10*3/uL 05/13/2024 10:06 AM EST [facility] Lymphocyte # 1.60 1.00 - 4.75 10*3/uL 05/13/2024 10:06 AM EST [facility] Monocyte # 0.70 0.00 - 6.00 10*3/uL 05/13/2024 10:06 AM EST [facility] Eosinophil # 0.30 0.00 - 0.80 10*3/uL 05/13/2024 10:06 AM EST [facility] Basophil # <0.03 0.00 - 0.20 10*3/uL 05/13/2024 10:06 AM EST [facility] nRBC % 0.0 0 - 0 /100 WBCs 05/13/2024 10:06 AM EST [facility] nRBC # <0.01 0.00 - 0.13 10*3/uL 05/13/2024 10:06 AM EST [facility] Blood Structure of peripheral vein / Unknown Venipuncture / Unknown 05/13/2024 9:32 AM EST 05/13/2024 9:32 AM EST us Salo Whyte MD LAB BLOOD ORDERABLES Final Result Performing Organization Address City/State/[facility] Co de Phone Number [facility] [address] [place] [address], [place] [phone] * (ABNORMAL) Comprehensive Metabolic Panel (05/13/2024 9:32 AM EST) NA 138 136 - 145 mmol/L 05/13/2024 10:36 AM EST [facility] K 3.6 3.5 - 5.1 mmol/L 05/13/2024 10:36 AM EST [facility] Cl 99 98 - 109 mmol/L 05/13/2024 10:36 AM EST [facility] CO2 30 22 - 32 mmol/L 05/13/2024 10:36 AM [facility] Anion Gap 13 >=0 05/13/2024 10:36 AM [facility] Glucose 118(H) 60 - 99 mg/dL 05/13/2024 10:36 AM [facility] Creatinine 1.73(H) 0.50 - 1.12 mg/dL 05/13/2024 10:36 AM [facility] Calcium 9.5 8.4 - 10.4 mg/dL 05/13/2024 10:36 AM [facility] Total Protein 6.1(L) 6.6 - 8.7 g/dL 05/13/2024 10:36 AM [facility] Albumin 3.0(L) 3.5 - 5.0 g/dL 05/13/2024 10:36 AM [facility] Bilirubin, Total 0.4 0.2 - 1.2 mg/dL 05/13/2024 10:36 AM [facility] Alkaline Phosphatase 102 40 - 129 U/L 05/13/2024 10:36 AM [facility] AST 18 0 - 40 U/L 05/13/2024 10:36 AM [facility] ALT 17 <=41 U/L 05/13/2024 10:36 AM [facility] BUN 36(H) 8 - 23 mg/dL 05/13/2024 10:36 AM [facility] eGFR 38(L) >=60 mL/min/1. 73m2 05/13/2024 10:36 AM EST [facility] Comment:The estimated glomer ular [...] - 4.2 g/dL 05/13/2024 10:36 AM EST [facility] A/G Ratio 1.0(L) 1.5 - 3.0 05/13/2024 10:36 AM EST [facility] Blood Structure of peripheral vein / Unknown Venipuncture / Unknown 05/13/2024 9:32 AM EST 05/13/2024 9:32 AM EST Salo Whyte MD LAB BLOOD ORDERABLES Final Result Performing Organization Address City/State/[facility] Co de Phone Number [facility] [address] [facility] 2[address] [place] [address], documented in this encounter Visit Diagnoses Diagnosis Acute and chronic respiratory failure with hypoxia (HCC) No diagnosis documented in this encounter Additional Health Concerns Infection Onset Date Last Indicated Resolved Time Multidrug resistant organisms MRSA 03/25/20242023 documented as of this encounter Care Teams Fine Craft Artist Relationship Specialty Start Date End Date Uday Sheehan [address] [place] [address] [place] [address] PCP - General Internal Medicine 03/27/24 documented as of this encounter
--- OUTSIDE RECORDS SUMMARY | 2024-11-14 14:06 | XMS_ITS | Encounter Summary ---
Author Organization [facility] Address [address] [place] [address] Care Team Providers Care Student Finance Specialist Name Role Phone Uday Sheehan MD Primary Care Provider [phone] Encounter Details Date Type Department Care Team (Late st Contact Info) Description 09/08/2024 Lab Requisition [facility] - Main Lab [address] [facility] [place] [address] Tabby Bledsoe MD 819 [facility] 1 [place], [place] [id number] Bacteremia; Osteomyelitis, unspecified (CMS/HCC V24, CMS/HCC V28) [...] al Result [facility] [address] [place] [address], [place] [phone] * (ABNORMAL) Comprehensive metabolic panel (09/09/2024 9:00 [...] LAB CHEMISTRY METHOD 09/09/2024 1:34 PM EST [facility] Comment:Calculation based on [...] al Result [facility] [address] [place] [address], * (ABNORMAL) Complete blood count (09/09/2024 9:00 [...] MD LAB BLOOD ORDERABLES Fin al Result [facility] [address] [place] [address], documented in this encounter Visit Diagnoses Diagnosis Bacteremia Osteomyelitis, unspecified (CMS/[facility] V24, CMS/[facility] V28) documented in this encounter Additional Health Concerns Infection Onset Date Last Indicated Resolved Time ESBL 06/22/2024 06/22/2024 documented as of this encounter Care Teams Student Finance Specialist Relationship Specialty Start Date End Date Uday Sheehan MD [address] [place] [address] Dr Donna [place] PCP - General Battery Installer 12/19/16 documented as of this encounter
--- OUTSIDE RECORDS SUMMARY | 2024-11-14 14:06 | XMS_ITS | Encounter Summary ---
Author Organization [facility] Address [address] [place] [address] Care Team Providers Care Public Relations Officer Name Role Phone Uday Sheehan Primary Care Provider [phone] Encounter Details Date Type Department Care Team (Late st Contact Info) Description 05/07/2024 Lab Requisition [facility] Department [address] [place] [id number] Robert Whyte [address] [address] Acute and chronic respiratory failure with hypoxia; [...] (MRSA)(A) [place] MAN[facility] 05/09/2024 9:10 AM EDT [facility] Swab Nasal structure / Unknown 05/07/2024 3:33 PM EDT 05/07/2024 4:19 PM EDT [facility] MICROBIOLOGY - GENERAL ORDER KIN[place]Y Final Result [facility] [address] [place] [address] [address] [place] [address], * (ABNORMAL) Respiratory Culture w/Gram Stain (05/07/2024 3:33 PM EDT) Respiratory Culture Moderate Methicillin resistant Staphylococcus aureus (MRSA)(A) MINIMUM INHIBITORY CONCENTRATION ([place]) 05/10/2024 8:39 AM EDT [facility] Gram Stain Result <10 per LPF Epithelial Cells 05/10/2024 8:39 AM EDT [facility] Gram Stain Result >25 per LPF White Blood Cells Seen 05/10/2024 8:39 AM EDT [facility] Gram Stain Result Rare Gram Positive Cocci 05/10/2024 8:39 AM EDT [facility] Gram Stain Result Rare Pleomorphic gram positive rods 05/10/2024 8:39 AM EDT [facility] Sputum Sputum / Unknown 05/07/2024 3:33 PM EDT 05/07/2024 3:33 PM EDT Narrative [facility] - 05/10/2024 8:39 AM EDT [...] Inducible Clindamycin Resistance has not been found. [facility] MICROBIOLOGY - GENERAL ORDER KINSEY Final Result [facility] [address] [facility] [address] [place] [address], documented in this encounter Visit Diagnoses Diagnosis Acute and chronic respiratory failure with hypoxia (HCC) No diagnosis documented in this encounter Additional Health Concerns Infection Onset Date Last Indicated Resolved Time Multidrug resistant organisms MRSA 03/25/20242023 documented as of this encounter Care Teams Public Relations Officer Relationship Specialty Start Date End Date Uday Sheehan [address] [place] [address] [place] [address] PCP - General Internal Medicine 03/27/24 documented as of this encounter
--- OUTSIDE RECORDS SUMMARY | 2024-11-14 14:06 | XMS_ITS | Encounter Summary ---
Author Organization [facility] Address [address] [place] [address] Care Team Providers Care Cast Associate Name Role Phone Uday Sheehan MD Primary Care Provider [phone] Encounter Details Date Type Department Care Team (Late st Contact Info) Description 06/05/2024 Lab Requisition [facility] - Main Lab [address] [place] [address] Natanael Rodney MD [address] [place] [address] [place] [address] Chronic kidney disease, [...] AM EST) WBC 7.2 4.8 - 10.8 K/[facility] LAB HEMETOLOGY METHOD 06/05/2024 11:[address] [facility] RBC 2.70(L) 4.50 - 5.50 M/mcL LAB HEMETOLOGY METHOD 06/05/2024 11:10 AM [facility] Hemoglobin 7.3(L) 13.5 - 17.5 g/dL LAB HEMETOLOGY METHOD 06/05/2024 11:10 AM [facility] Hematocrit 23.8(L) 42.0 - 54.0 % LAB HEMETOLOGY METHOD 06/05/2024 11:10 AM [facility] MCV 87.8 79.0 - 98.0 FL LAB HEMETOLOGY METHOD 06/05/2024 11:10 AM [facility] MCH 26.9(L) 27.0 - 32.0 pcg LAB HEMETOLOGY METHOD 06/05/2024 11:10 AM [facility] MCHC 30.7(L) 32.0 - 37.0 g/dL LAB HEMETOLOGY METHOD 06/05/2024 11:10 AM [facility] RDW 16.7(H) 11.0 - 15.0 % LAB HEMETOLOGY METHOD 06/05/2024 11:10 AM [facility] Platelets 172 130 - 400 K/mcL LAB HEMETOLOGY METHOD 06/05/2024 11:10 AM [facility] MPV 10.1 7.0 - 11.0 FL LAB HEMETOLOGY METHOD 06/05/2024 11:10 AM [facility] NRBC 0.0 <1.0 % LAB HEMETOLOGY METHOD 06/05/2024 11:10 AM [facility] NRBC Absolute 0.00 <0.10 K/mcL LAB HEMETOLOGY METHOD 06/05/2024 11:10 AM [facility] Blood Venous blood specimen / Unknown Venipuncture / Unknown 06/05/2024 8:53 AM EST 06/05/2024 10:47 AM EST us Natanael Rodney MD LAB BLOOD ORDERABLES Final Resu lt [facility] ([facility]) [facility] [address] [place] [address], documented in this encounter Visit Diagnoses Diagnosis Chronic kidney disease, unspecified Essential (primary) hypertension Unspecified essential hypertension Unspecified atrial fibrillation (CMS/HCC V24, CMS/HCC V28) documented in this encounter Additional Health Concerns Infection Onset Date Last Indicated Resolved Time ESBL 06/22/2024 06/22/2024 documented as of this encounter Care Teams Cast Associate Relationship Specialty Start Date End Date Uday Sheehan MD [address] [place] [address] Dr Donna [place] PCP - General Carpentry Supervisor 12/19/16 documented as of this encounter
--- OUTSIDE RECORDS SUMMARY | 2024-11-14 14:06 | XMS_ITS | Encounter Summary ---
Author Organization [facility] Address [address] [place] [address] Care Team Providers Care Hot Dip Plater Name Role Phone Uday Sheehan MD Primary Care Provider [phone] Encounter Details Date Type Department Care Team (Late st Contact Info) Description 10/03/2024 Lab Requisition [facility] - Main Lab [address] [place] [address] Tabby Bledsoe MD [address] [address] Anemia, unspecified Social History Tobacco Use Types [...] LAB CHEMISTRY METHOD 10/03/2024 11:29 AM EDT [facility] Potassium 4.9 3.5 - 5.5 mmol/L LAB CHEMISTRY METHOD 10/03/2024 11:29 AM [facility] Chloride 98 96 - 110 mmol/L LAB CHEMISTRY METHOD 10/03/2024 11:29 AM [facility] CO2 31 21 - 32 mmol/L LAB CHEMISTRY METHOD 10/03/2024 11:29 AM [facility] Anion Gap 6 3 - 11 LAB CHEMISTRY METHOD 10/03/2024 11:29 AM [facility] Glucose 87 70 - 100 mg/dL LAB CHEMISTRY METHOD 10/03/2024 11:29 AM [facility] BUN 36(H) 5 - 25 mg/dL LAB CHEMISTRY METHOD 10/03/2024 11:29 AM [facility] Creatinine 1.31(H) 0.70 - 1.30 mg/dL LAB CHEMISTRY METHOD 10/03/2024 11:29 AM [facility] eGFR 54(L) >=60 mL/min/1. 73m2 LAB CHEMISTRY METHOD 10/03/2024 11:29 AM [facility] Comment:Calculation based on the??Chronic Kidney Disease Epidemiology Collaboration (CKD-EPI) equation refit??without adjustment for race. BUN/Creatinine Ratio 27.5 LAB CHEMISTRY METHOD 10/03/2024 11:29 AM [facility] Calcium 8.1(L) 8.5 - 10.5 mg/dL LAB CHEMISTRY METHOD 10/03/2024 11:29 AM [facility] Blood Venous blood specimen / Unknown Venipuncture / Unknown 10/03/2024 5:24 AM EDT 10/03/2024 10:03 AM EDT us Tabby Bledsoe MD LAB BLOOD ORDERABLES Fin al Result [facility] [address] [place] [address], * (ABNORMAL) Complete blood count (10/03/2024 5:24 AM EDT) [facility] WBC 9.2 4.8 - 10.8 K/mcL LAB HEMETOLOGY METHOD 10/03/2024 10:27 AM [facility] RBC 2.40(L) 4.50 - 5.50 M/mcL LAB HEMETOLOGY METHOD 10/03/2024 10:27 AM [facility] Hemoglobin 6.6(L) 13.5 - 17.5 g/dL LAB HEMETOLOGY METHOD 10/03/2024 10:27 AM [facility] Hematocrit 22.2(L) 42.0 - 54.0 % LAB HEMETOLOGY METHOD 10/03/2024 10:27 AM [facility] MCV 92.1 79.0 - 98.0 FL LAB HEMETOLOGY METHOD 10/03/2024 10:27 AM [facility] MCH 27.4 27.0 - 32.0 pcg LAB HEMETOLOGY METHOD 10/03/2024 10:27 AM [facility] MCHC 29.7(L) 32.0 - 37.0 g/dL LAB HEMETOLOGY METHOD 10/03/2024 10:27 AM [facility] RDW 17.0(H) 11.0 - 15.0 % LAB HEMETOLOGY METHOD 10/03/2024 10:27 AM [facility] Platelets 273 130 - 400 K/mcL LAB HEMETOLOGY METHOD 10/03/2024 10:27 AM [facility] MPV 9.1 7.0 - 11.0 FL LAB HEMETOLOGY METHOD 10/03/2024 10:27 AM [facility] NRBC 0.0 <1.0 % LAB HEMETOLOGY METHOD 10/03/2024 10:27 AM [facility] NRBC Absolute 0.00 <0.10 K/mcL LAB HEMETOLOGY METHOD 10/03/2024 10:27 AM EDT [facility] Blood Venous blood specimen / Unknown Venipuncture / Unknown 10/03/2024 5:24 AM EDT 10/03/2024 10:03 AM EDT us Tabby Bledsoe MD LAB BLOOD ORDERABLES Fin al Result [facility] [address] [place] [address], documented in this encounter Visit Diagnoses Diagnosis Anemia, unspecified documented in this encounter Additional Health Concerns Infection Onset Date Last Indicated Resolved Time ESBL 06/22/2024 06/22/2024 documented as of this encounter Care Teams Hot Dip Plater Relationship Specialty Start Date End Date Uday Sheehan MD [address] [place] [address] Dr Thompson [place] PCP - General Coagulating Operator 12/19/16 documented as of this encounter
--- OUTSIDE RECORDS SUMMARY | 2024-11-14 14:07 | XMS_ITS | Encounter Summary ---
[facility] Address [address] [place] [address] Care Team Providers Care Small Engine Technician Name Role Phone Uday Sheehan MD Primary Care Provider [phone] Encounter Details Date Type Department Care Team (Late st Contact Info) Description 06/26/2024 Lab Requisition [facility] - Main Lab [address] [place] [id number] Natanael Rodney PA [address] [place] [phone] Anemia, unspecified Social History Tobacco Use Types [...] AM EST) WBC 10.2 4.8 - 10.8 K/[facility] LAB HEMETOLOGY METHOD 06/26/2024 1:31 PM EST [facility] RBC 2.70(L) 4.50 - 5.50 M/[facility] LAB HEMETOLOGY METHOD 06/26/2024 1:31 PM EST [facility] Hemoglobin 7.1(L) 13.5 - 17.5 [...] [facility] LAB BLOOD ORDERABLES Final Re sult [facility] [address] [place] [address], documented in this encounter Visit Diagnoses Diagnosis Anemia, unspecified documented in this encounter Additional Health Concerns Infection Onset Date Last Indicated Resolved Time ESBL 06/22/2024 06/22/2024 documented as of this encounter Care Teams Small Engine Technician Relationship Specialty Start Date End Date Uday Sheehan MD [address] [place] [address] Dr Donna [place] PCP - General Mechanic'S Assistant 12/19/16 documented as of this encounter
--- OUTSIDE RECORDS SUMMARY | 2024-11-14 14:07 | XMS_ITS | Encounter Summary ---
Author Organization [facility]ina [facility] Address [address] [place] [address] Care Team Providers Care Mining Helper Name Role Phone Uday Sheehan MD Primary Care Provider [phone] Encounter Details Date Type Department Care Team (Late st Contact Info) Description 06/13/2024 Lab Requisition [facility] - Main Lab [address] [facility] [place] [address] Natanael Rodney MD [address] [place] [address] [place] [address] Anemia, unspecified Social [...] LAB CHEMISTRY METHOD 06/13/2024 11:42 AM EST [facility] Blood Venous blood specimen / Unknown Venipuncture / Unknown 06/13/2024 7:00 AM EST 06/13/2024 8:28 AM EST us Natanael Rodney MD LAB BLOOD ORDERABLES Final Resu lt Performing Organization Address [facility]/ZIP Co de Phone Number [facility] [address] [place] [address], [place] [phone] * Free thyroxine with reflex to free triiodothyronine (06/13/2024 7:00 AM EST) Free T4 0.97 0.70 - 1.80 ng/dL LAB CHEMISTRY METHOD 06/13/2024 10:56 AM EST [facility] Blood Venous blood specimen / Unknown Venipuncture / Unknown 06/13/2024 7:00 AM EST 06/13/2024 8:28 AM EST us Natanael Rodney MD LAB BLOOD ORDERABLES Final Resu lt [facility] [address] [place] [address], [place] [phone] * (ABNORMAL) Thyroid stimulating hormone with reflex to free t4 and free t3 (06/13/2024 7:00 AM EST) TSH 5.31(H) 0.40 - 4.00 mcIU/mL LAB CHEMISTRY METHOD 06/13/2024 10:28 AM EST [facility] Blood Venous blood specimen / Unknown Venipuncture / Unknown 06/13/2024 7:00 AM EST 06/13/2024 8:28 AM EST us Natnaael Rodney MD LAB BLOOD ORDERABLES Final Resu lt [facility] [address] [place] [address], [place] [phone] * (ABNORMAL) Comprehensive metabolic panel (06/13/2024 7:00 AM EST) Sodium 146(H) 133 - 145 mmol/L LAB CHEMISTRY METHOD 06/13/2024 10:23 AM [facility] Potassium 4.2 3.5 - 5.5 mmol/L LAB CHEMISTRY METHOD 06/13/2024 10:23 AM [facility] Chloride 115(H) 96 - 110 mmol/L LAB CHEMISTRY METHOD 06/13/2024 10:23 AM [facility] CO2 24 21 - 32 mmol/L LAB CHEMISTRY METHOD 06/13/2024 10:23 AM [facility] Anion Gap 7 3 - 11 LAB CHEMISTRY METHOD 06/13/2024 10:23 AM [facility] Glucose 86 70 - 100 mg/dL LAB CHEMISTRY METHOD 06/13/2024 10:23 AM [facility] BUN 43(H) 5 - 25 mg/dL LAB CHEMISTRY METHOD 06/13/2024 10:23 AM [facility] Creatinine 2.70(H) 0.70 - 1.30 mg/dL LAB CHEMISTRY METHOD 06/13/2024 10:23 AM [facility] eGFR 23(L) >=60 mL/min/1. 73m2 LAB CHEMISTRY METHOD 06/13/2024 10:23 AM [facility] Comment:Calculation based on the??Chronic Kidney Disease Epidemiology Collaboration (CKD-EPI) equation refit??without adjustment for race. BUN/Creatinine Ratio 15.9 LAB CHEMISTRY METHOD 06/13/2024 10:23 AM [facility] Calcium 7.8(L) 8.5 - 10.5 mg/dL LAB CHEMISTRY METHOD 06/13/2024 10:23 AM [facility] AST (SGOT) 137(H) 10 - 42 unit/L LAB CHEMISTRY METHOD 06/13/2024 10:23 AM [facility] ALT (SGPT) 111(H) 10 - 60 unit/L LAB CHEMISTRY METHOD 06/13/2024 10:23 AM [facility] Alkaline Phosphatase 99 42 - 121 unit/L LAB CHEMISTRY METHOD 06/13/2024 10:23 AM [facility] Total Protein 5.5(L) 6.0 - 8.0 g/dL LAB CHEMISTRY METHOD 06/13/2024 10:23 AM [facility] Albumin 1.7(L) 3.2 - 5.0 g/dL LAB CHEMISTRY METHOD 06/13/2024 10:23 AM [facility] Total Bilirubin 0.5 0.0 - 1.4 mg/dL LAB CHEMISTRY METHOD 06/13/2024 10:23 AM [facility] Blood Venous blood specimen / Unknown Venipuncture / Unknown 06/13/2024 7:00 AM EST 06/13/2024 8:28 AM EST us Natanael Rodney MD LAB BLOOD ORDERABLES Final Resu lt [facility] [address] [place] [address], * (ABNORMAL) Complete blood count (06/13/2024 7:00 AM EST) WBC 4.9 4.8 - 10.8 K/mcL LAB HEMETOLOGY METHOD 06/13/2024 10:08 AM [facility] RBC 2.80(L) 4.50 - 5.50 M/mcL LAB HEMETOLOGY METHOD 06/13/2024 10:08 AM [facility] Hemoglobin 7.6(L) 13.5 - 17.5 g/dL LAB HEMETOLOGY METHOD 06/13/2024 10:08 AM [facility] Hematocrit 25.2(L) 42.0 - 54.0 % LAB HEMETOLOGY METHOD 06/13/2024 10:08 AM [facility] MCV 88.7 79.0 - 98.0 FL LAB HEMETOLOGY METHOD 06/13/2024 10:08 AM [facility] MCH 26.8(L) 27.0 - 32.0 pcg LAB HEMETOLOGY METHOD 06/13/2024 10:08 AM [facility] MCHC 30.2(L) 32.0 - 37.0 g/dL LAB HEMETOLOGY METHOD 06/13/2024 10:08 AM [facility] RDW 16.8(H) 11.0 - 15.0 % LAB HEMETOLOGY METHOD 06/13/2024 10:08 AM [facility] Platelets 188 130 - 400 K/mcL LAB HEMETOLOGY METHOD 06/13/2024 10:08 AM [facility] MPV 10.3 7.0 - 11.0 FL LAB HEMETOLOGY METHOD 06/13/2024 10:08 AM [facility] NRBC 0.0 <1.0 % LAB HEMETOLOGY METHOD 06/13/2024 10:08 AM [facility] NRBC Absolute 0.00 <0.10 K/mcL LAB HEMETOLOGY METHOD 06/13/2024 10:08 AM [facility] Blood Venous blood specimen / Unknown Venipuncture / Unknown 06/13/2024 7:00 AM EST 06/13/2024 8:28 AM EST us Natanael Rodney MD LAB BLOOD ORDERABLES Final Resu lt [facility] [address] [place] [address], documented in this encounter Visit Diagnoses Diagnosis Anemia, unspecified documented in this encounter Additional Health Concerns Infection Onset Date Last Indicated Resolved Time ESBL 06/22/2024 06/22/2024 documented as of this encounter Care Teams Mining Helper Relationship Specialty Start Date End Date Uday Sheehan MD [address] [place] [address] Dr Donna [place] PCP - General Hide Stretcher Hand 12/19/16 documented as of this encounter
--- OUTSIDE RECORDS SUMMARY | 2024-11-14 14:07 | XMS_ITS | Encounter Summary ---
Author Organization [facility] Address [address] [place] [address] Care Team Providers Care Queen'S Counsel Name Role Phone Uday Sheehan Primary Care Provider [phone] Encounter Details Date Type Department Care Team (Late st Contact Info) Description 05/20/2024 Lab Requisition [facility] [address] [place] [address] Salo Whyte MD [address] [place] [address] Acute and chronic respiratory failure with hypoxia; [...] - 10.8 10*3/uL 05/20/2024 10:48 AM EST [facility] RBC 3.05(L) 4.70 - 6.10 10*6/uL 05/20/2024 10:48 AM EST [facility] Hemoglobin 8.3(L) 13.7 - 16.5 g/dL 05/20/2024 10:48 AM EST [facility] Hematocrit 26.4(L) 40.5 - 48.5 % 05/20/2024 10:48 AM EST [facility] MCV 86.6 80.0 - 94.0 fL 05/20/2024 10:48 AM EST [facility] MCH 27.2 26.0 - 34.0 pg 05/20/2024 10:48 AM EST [facility] MCHC 31.4 31.0 - 36.0 g/dL 05/20/2024 10:48 AM EST [facility] RDW 16.9(H) 12.0 - 15.0 % 05/20/2024 10:48 AM EST [facility] RDW Standard Deviation 53.1(H) 35.1 - 43.9 fL 05/20/2024 10:48 AM EST [facility] Platelets 141 140 - 440 10*3/uL 05/20/2024 10:48 AM EST [facility] MPV 10.0 9.4 - 12.4 fL 05/20/2024 10:48 AM EST [facility] Neutrophil % 50.4 50.0 - 75.0 % 05/20/2024 10:48 AM EST [facility] Immature Grans % 0.2 0.0 - 0.9 % 05/20/2024 10:48 AM EST [facility] Lymphocyte % 29.8 20.0 - 44.0 % 05/20/2024 10:48 AM EST [facility] Monocyte % 13.1 0.0 - 14.0 % 05/20/2024 10:48 AM EST [facility] Eosinophil % 5.9(H) 0.0 - 5.0 % 05/20/2024 10:48 AM EST [facility] Basophil % 0.6 0.0 - 2.0 % 05/20/2024 10:48 AM EST [facility] Neutrophil # 2.74 1.80 - 7.70 10*3/uL 05/20/2024 10:48 AM EST [facility] Immature Grans # <0.03 0.00 - 0.03 10*3/uL 05/20/2024 10:48 AM EST [facility] Lymphocyte # 1.60 1.00 - 4.75 10*3/uL 05/20/2024 10:48 AM EST [facility] Monocyte # 0.70 0.00 - 6.00 10*3/uL 05/20/2024 10:48 AM EST [facility] Eosinophil # 0.30 0.00 - 0.80 10*3/uL 05/20/2024 10:48 AM EST [facility] Basophil # <0.03 0.00 - 0.20 10*3/uL 05/20/2024 10:48 AM EST [facility] nRBC % 0.0 0 - 0 /100 WBCs 05/20/2024 10:48 AM EST [facility] nRBC # <0.01 0.00 - 0.13 10*3/uL 05/20/2024 10:48 AM EST [facility] Blood Structure of peripheral vein / Unknown Venipuncture / Unknown 05/20/2024 10:25 AM EST 05/20/2024 10:25 AM EST us Salo Whyte MD LAB BLOOD ORDERABLES Final Result Performing Organization Address City/State/[facility] Co de Phone Number [facility] [address] [place] [address] [address] [place] [address], [place] [phone] * (ABNORMAL) Comprehensive Metabolic Panel (05/20/2024 10:25 AM EST) NA 141 136 - 145 mmol/L 05/20/2024 11:11 AM EST [facility] K 3.7 3.5 - 5.1 mmol/L 05/20/2024 11:11 AM EST [facility] Cl 102 98 - 109 mmol/L 05/20/2024 11:11 AM EST [facility] CO2 27 22 - 32 mmol/L 05/20/2024 11:11 AM EST [facility] Anion Gap 16 >=0 05/20/2024 11:11 AM EST [facility] Glucose 91 60 - 99 mg/dL 05/20/2024 11:11 AM EST [facility] Creatinine 1.68(H) 0.50 - 1.12 mg/dL 05/20/2024 11:11 AM EST [facility] Calcium 9.4 8.4 - 10.4 mg/dL 05/20/2024 11:11 AM EST [facility] Total Protein 6.4(L) 6.6 - 8.7 g/dL 05/20/2024 11:11 AM EST [facility] Albumin 3.1(L) 3.5 - 5.0 g/dL 05/20/2024 11:11 AM EST [facility] Bilirubin, Total 0.2 0.2 - 1.2 mg/dL 05/20/2024 11:11 AM EST [facility] Alkaline Phosphatase 102 40 - 129 U/L 05/20/2024 11:11 AM EST [facility] AST 23 0 - 40 U/L 05/20/2024 11:11 AM EST [facility] ALT 17 <=41 U/L 05/20/2024 11:11 AM EST [facility] BUN 35(H) 8 - 23 mg/dL 05/20/2024 11:11 AM EST [facility] eGFR 40(L) >=60 mL/min/1. 73m2 05/20/2024 11:11 AM EST [facility] Comment:The estimated glomer [...] - 4.2 g/dL 05/20/2024 11:11 AM EST [facility] A/G Ratio 0.9(L) 1.5 - 3.0 05/20/2024 11:11 AM EST [facility] Blood Structure of peripheral vein / Unknown Venipuncture / Unknown 05/20/2024 10:25 AM EST 05/20/2024 10:25 AM EST Salo Whyte MD LAB BLOOD ORDERABLES Final Result Performing Organization Address City/State/[facility] Co de Phone Number [facility] [address] [facility] [address] [place] [address], documented in this encounter Visit Diagnoses Diagnosis Acute and chronic respiratory failure with hypoxia (HCC) No diagnosis documented in this encounter Additional Health Concerns Infection Onset Date Last Indicated Resolved Time 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
--- OUTSIDE RECORDS SUMMARY | 2024-11-14 14:07 | XMS_ITS | Clinical Summary ---
Author Organization [facility] Address [address] [place] [address] Care Team Providers Care Arc Welding Machine Operator Name Role Phone Uday Sheehan Primary Care Provider [phone] Allergies No known active allergies Medications acetaminophen [...] by mouth every 12 hours. 04/08/20 Active [id number]-c fhmri-[id number] (VIDHYA WITH COLLAGEN) 7-7-1.5 gram powder in [...] WBC of 7.4. - [facility] PEG (percutaneous endoscopic gastrostomy) status 03/28/2024 [...] consolidation LLL. O2 increased to 50% per TELEPHONE DIRECTORY DISTRIBUTOR DRIVER: plugging secretions but not clogged at that [...] consolidation LLL. O2 increased to 50% per TELEPHONE DIRECTORY DISTRIBUTOR DRIVER: plugging secretions but not clogged at that [...] complete this topic Procedures * Due to [place] state law, this organization might not be [...] to Health Maintenance Results * Due to [place] state law, this organization might not be sharing negative HIV tests. * (ABNORMAL) CBC Auto Differential (05/27/2024 10:09 AM EST) WBC 6.1 4.8 - 10.8 10*3/uL 05/27/2024 10:58 AM EST [facility] RBC 3.05(L) 4.70 - 6.10 10*6/uL 05/27/2024 10:58 AM EST [facility] Hemoglobin 8.4(L) 13.7 - 16.5 g/dL 05/27/2024 10:58 AM EST [facility] Hematocrit 26.6(L) 40.5 - 48.5 % 05/27/2024 10:58 AM EST [facility] MCV 87.2 80.0 - 94.0 fL 05/27/2024 10:58 AM EST [facility] MCH 27.5 26.0 - 34.0 pg 05/27/2024 10:58 AM EST [facility] MCHC 31.6 31.0 - 36.0 g/dL 05/27/2024 10:58 AM EST [facility] RDW 17.0(H) 12.0 - 15.0 % 05/27/2024 10:58 AM EST [facility] RDW Standard Deviation 54.3(H) 35.1 - 43.9 fL 05/27/2024 10:58 AM EST [facility] Platelets 147 140 - 440 10*3/uL 05/27/2024 10:58 AM EST [facility] MPV 10.1 9.4 - 12.4 fL 05/27/2024 10:58 AM EST [facility] Neutrophil % 57.4 50.0 - 75.0 % 05/27/2024 10:58 AM EST [facility] Immature Grans % 0.3 0.0 - 0.9 % 05/27/2024 10:58 AM EST [facility] Lymphocyte % 23.7 20.0 - 44.0 % 05/27/2024 10:58 AM EST [facility] Monocyte % 12.7 0.0 - 14.0 % 05/27/2024 10:58 AM EST [facility] Eosinophil % 5.6(H) 0.0 - 5.0 % 05/27/2024 10:58 AM EST [facility] Basophil % 0.3 0.0 - 2.0 % 05/27/2024 10:58 AM EST [facility] Neutrophil # 3.51 1.80 - 7.70 10*3/uL 05/27/2024 10:58 AM EST [facility] Immature Grans # <0.03 0.00 - 0.03 10*3/uL 05/27/2024 10:58 AM EST [facility] Lymphocyte # 1.50 1.00 - 4.75 10*3/uL 05/27/2024 10:58 AM EST [facility] Monocyte # 0.80 0.00 - 6.00 10*3/uL 05/27/2024 10:58 AM EST [facility] Eosinophil # 0.30 0.00 - 0.80 10*3/uL 05/27/2024 10:58 AM EST [facility] Basophil # <0.03 0.00 - 0.20 10*3/uL 05/27/2024 10:58 AM EST [facility] nRBC % 0.0 0 - 0 /100 WBCs 05/27/2024 10:58 AM EST [facility] nRBC # <0.01 0.00 - 0.13 10*3/uL 05/27/2024 10:58 AM EST [facility] Blood Structure of peripheral vein / Unknown Venipuncture / Unknown 05/27/2024 10:09 AM EST 05/27/2024 10:10 AM EST us Salo Whyte MD LAB BLOOD ORDERABLES Final Result Performing Organization Address City/State/[facility] Co de Phone Number [facility] [address] [place] [address], [place] [phone] * (ABNORMAL) Comprehensive Metabolic Panel (05/27/2024 10:09 AM EST) NA 142 136 - 145 mmol/L 05/27/2024 11:11 AM EST [facility] K 3.9 3.5 - 5.1 mmol/L 05/27/2024 11:11 AM EST [facility] Cl 104 98 - 109 mmol/L 05/27/2024 11:11 AM EST [facility] CO2 30 22 - 32 mmol/L 05/27/2024 11:11 AM [facility] Anion Gap 12 >=0 05/27/2024 11:11 AM [facility] Glucose 99 60 - 99 mg/dL 05/27/2024 11:11 AM [facility] Creatinine 1.71(H) 0.50 - 1.12 mg/dL 05/27/2024 11:11 AM [facility] Calcium 9.4 8.4 - 10.4 mg/dL 05/27/2024 11:11 AM [facility] Total Protein 6.0(L) 6.6 - 8.7 g/dL 05/27/2024 11:11 AM [facility] Albumin 2.9(L) 3.5 - 5.0 g/dL 05/27/2024 11:11 AM [facility] Bilirubin, Total 0.3 0.2 - 1.2 mg/dL 05/27/2024 11:11 AM [facility] Alkaline Phosphatase 113 40 - 129 U/L 05/27/2024 11:11 AM [facility] AST 18 0 - 40 U/L 05/27/2024 11:11 AM [facility] ALT 12 <=41 U/L 05/27/2024 11:11 AM [facility] BUN 41(H) 8 - 23 mg/dL 05/27/2024 11:11 AM [facility] eGFR 39(L) >=60 mL/min/1. 73m2 05/27/2024 11:11 AM EST [facility] Comment:The estimated glomer ular [...] - 4.2 g/dL 05/27/2024 11:11 AM EST [facility] A/G Ratio 0.9(L) 1.5 - 3.0 05/27/2024 11:11 AM EST [facility] Blood Structure of peripheral vein / Unknown Venipuncture / Unknown 05/27/2024 10:09 AM EST 05/27/2024 10:10 AM EST us Salo Whyte MD LAB BLOOD ORDERABLES Final Result [facility] [address] [address], * Phosphorus (04/08/2024 5:21 AM EDT) Phosphorus 4.2 2.5 - 4.5 mg/dL 04/08/2024 5:46 AM EDT [facility] Blood Structure of peripheral vein / Unknown Venipuncture / Unknown 04/08/2024 5:21 AM EDT 04/08/2024 5:24 AM EDT us Jori Longo NP LAB BLOOD ORDERABLES Fi nal Result [facility] [address] [place] [address], from Last 3 Months or Most Recently Relevant to Health Maintenance Additional Health Concerns Infection Onset Date Last Indicated Multidrug resistant organisms MRSA 03/25/2024 05/07/2024 Insurance [facility] MEDICARE Advance Directives Documents on File Type Date Recorded Patient Deburrer Strip Expl anation Health Care Proxy 03/31/2024 10:53 [...] Atkinson Daughter Next of Kin Care Teams Arc Welding Machine Operator Relationship Specialty Start Date End Date Uday Sheehan [address] [place] [address] [place] [address] PCP - General Internal Medicine 03/27/24
--- OUTSIDE RECORDS SUMMARY | 2024-11-14 14:07 | XMS_ITS | Encounter Summary ---
Author Organization [facility] Address [address] [place] [address] Care Team Providers Care Can Filling And Closing Machine Tender Name Role Phone Uday Sheehan Primary Care Provider [phone] Encounter Details Date Type Department Care Team (Late st Contact Info) Description 05/27/2024 Lab Requisition [facility] [address] [place] [address] Salo Whyte MD [address] [place] [address] Acute and chronic respiratory failure with hypoxia; [...] - 10.8 10*3/uL 05/27/2024 10:58 AM EST [facility] RBC 3.05(L) 4.70 - 6.10 10*6/uL 05/27/2024 10:58 AM EST [facility] Hemoglobin 8.4(L) 13.7 - 16.5 g/dL 05/27/2024 10:58 AM EST [facility] Hematocrit 26.6(L) 40.5 - 48.5 % 05/27/2024 10:58 AM EST [facility] MCV 87.2 80.0 - 94.0 fL 05/27/2024 10:58 AM EST [facility] MCH 27.5 26.0 - 34.0 pg 05/27/2024 10:58 AM EST [facility] MCHC 31.6 31.0 - 36.0 g/dL 05/27/2024 10:58 AM EST [facility] RDW 17.0(H) 12.0 - 15.0 % 05/27/2024 10:58 AM EST [facility] RDW Standard Deviation 54.3(H) 35.1 - 43.9 fL 05/27/2024 10:58 AM EST [facility] Platelets 147 140 - 440 10*3/uL 05/27/2024 10:58 AM EST [facility] MPV 10.1 9.4 - 12.4 fL 05/27/2024 10:58 AM EST [facility] Neutrophil % 57.4 50.0 - 75.0 % 05/27/2024 10:58 AM EST [facility] Immature Grans % 0.3 0.0 - 0.9 % 05/27/2024 10:58 AM [facility] Lymphocyte % 23.7 20.0 - 44.0 % 05/27/2024 10:58 AM EST [facility] Monocyte % 12.7 0.0 - 14.0 % 05/27/2024 10:58 AM EST [facility] Eosinophil % 5.6(H) 0.0 - 5.0 % 05/27/2024 10:58 AM EST [facility] Basophil % 0.3 0.0 - 2.0 % 05/27/2024 10:58 AM EST [facility] Neutrophil # 3.51 1.80 - 7.70 10*3/uL 05/27/2024 10:58 AM EST [facility] Immature Grans # <0.03 0.00 - 0.03 10*3/uL 05/27/2024 10:58 AM EST [facility] Lymphocyte # 1.50 1.00 - 4.75 10*3/uL 05/27/2024 10:58 AM EST [facility] Monocyte # 0.80 0.00 - 6.00 10*3/uL 05/27/2024 10:58 AM EST [facility] Eosinophil # 0.30 0.00 - 0.80 10*3/uL 05/27/2024 10:58 AM EST [facility] Basophil # <0.03 0.00 - 0.20 10*3/uL 05/27/2024 10:58 AM EST [facility] nRBC % 0.0 0 - 0 /100 WBCs 05/27/2024 10:58 AM EST [facility] nRBC # <0.01 0.00 - 0.13 10*3/uL 05/27/2024 10:58 AM EST [facility] Blood Structure of peripheral vein / Unknown Venipuncture / Unknown 05/27/2024 10:09 AM EST 05/27/2024 10:10 AM EST us Salo Whyte MD LAB BLOOD ORDERABLES Final Result Performing Organization Address City/State/[facility] Co de Phone Number [facility] [address] [place] [address] [address] [place] [address], [place] [phone] * (ABNORMAL) Comprehensive Metabolic Panel (05/27/2024 10:09 AM EST) NA 142 136 - 145 mmol/L 05/27/2024 11:11 AM EST [facility] K 3.9 3.5 - 5.1 mmol/L 05/27/2024 11:11 AM EST [facility] Cl 104 98 - 109 mmol/L 05/27/2024 11:11 AM EST [facility] CO2 30 22 - 32 mmol/L 05/27/2024 11:11 AM EST [facility] Anion Gap 12 >=0 05/27/2024 11:11 AM EST [facility] Glucose 99 60 - 99 mg/dL 05/27/2024 11:11 AM EST [facility] Creatinine 1.71(H) 0.50 - 1.12 mg/dL 05/27/2024 11:11 AM EST [facility] Calcium 9.4 8.4 - 10.4 mg/dL 05/27/2024 11:11 AM [facility] Total Protein 6.0(L) 6.6 - 8.7 g/dL 05/27/2024 11:11 AM EST [facility] Albumin 2.9(L) 3.5 - 5.0 g/dL 05/27/2024 11:11 AM EST [facility] Bilirubin, Total 0.3 0.2 - 1.2 mg/dL 05/27/2024 11:11 AM EST [facility] Alkaline Phosphatase 113 40 - 129 U/L 05/27/2024 11:11 AM EST [facility] AST 18 0 - 40 U/L 05/27/2024 11:11 AM EST [facility] ALT 12 <=41 U/L 05/27/2024 11:11 AM EST [facility] BUN 41(H) 8 - 23 mg/dL 05/27/2024 11:11 AM EST [facility] eGFR 39(L) >=60 mL/min/1. 73m2 05/27/2024 11:11 AM EST [facility] Comment:The estimated glomer ular [...] - 4.2 g/dL 05/27/2024 11:11 AM EST [facility] A/G Ratio 0.9(L) 1.5 - 3.0 05/27/2024 11:11 AM EST [facility] Blood Structure of peripheral vein / Unknown Venipuncture / Unknown 05/27/2024 10:09 AM EST 05/27/2024 10:10 AM EST Salo Whyte MD LAB BLOOD ORDERABLES Final Result Performing Organization Address City/State/[facility] Co de Phone Number [facility] [address] [place] [address], documented in this encounter Visit Diagnoses Diagnosis Acute and chronic respiratory failure with hypoxia (HCC) No diagnosis documented in this encounter Additional Health Concerns Infection Onset Date Last Indicated Resolved Time Multidrug resistant organisms MRSA 03/25/20242023 documented as of this encounter Care Teams Can Filling And Closing Machine Tender Relationship Specialty Start Date End Date Uday Sheehan [address] [place] [id number] [place] [id number] PCP - General Internal Medicine 03/27/24 documented as of this encounter
--- OUTSIDE RECORDS SUMMARY | 2024-11-14 14:07 | XMS_ITS | Encounter Summary ---
[facility] Organization [facility] Address [address] [place] [address] Care Team Providers Care Research Archaeologist Name Role Phone Uday Sheehan MD Primary Care Provider [phone] Encounter Details Date Type Department Care Team (Late st Contact Info) Description 06/23/2024 Lab Requisition [facility] - Main Lab [address] [place] [address] Pearl Garcia MD [address] [place] [address] Other retention of urine Social [...] reflex microscopic (06/22/2024 12:00 AM EST) Specific [place] Urine 1.013 1.003 - 1.030 LAB URINALYSIS - AUTOMATED METHOD 06/23/2024 12:51 PM [facility] pH, Urine 6.0 5.0 - 8.0 pH LAB URINALYSIS - AUTOMATED METHOD 06/23/2024 12:51 PM [facility] Leukocytes, Urine Large(A) Negative LAB URINALYSIS - AUTOMATED METHOD 06/23/2024 12:51 PM [facility] Nitrite, Urine Negative Negative LAB URINALYSIS - AUTOMATED METHOD 06/23/2024 12:51 PM [facility] Protein, Urine 100(A) <=Trace mg/dL LAB URINALYSIS - AUTOMATED METHOD 06/23/2024 12:51 PM [facility] Glucose, Urine Negative Negative mg/dL LAB URINALYSIS - AUTOMATED METHOD 06/23/2024 12:51 PM [facility] Ketones, Urine Negative Negative mg/dL LAB URINALYSIS - AUTOMATED METHOD 06/23/2024 12:51 PM [facility] Urobilinogen , Urine 0.2 0.2 - 1.0 mg/dL LAB URINALYSIS - AUTOMATED METHOD 06/23/2024 12:51 PM [facility] Bilirubin, Urine Negative Negative LAB URINALYSIS - AUTOMATED METHOD 06/23/2024 12:51 PM [facility] Blood, Urine Large(A) Negative LAB URINALYSIS - AUTOMATED METHOD 06/23/2024 12:51 PM [facility] RBC, Urine 32.8(H) 0 - 4 /HPF LAB URINALYSIS - AUTOMATED METHOD 06/23/2024 12:51 PM [facility] WBC, Urine 3,850.2(H) 0 - 4 /HPF LAB URINALYSIS - AUTOMATED METHOD 06/23/2024 12:51 PM [facility] Squamous Epithelial, Urine 20 0 - 60 /LPF LAB URINALYSIS - AUTOMATED METHOD 06/23/2024 12:51 PM [facility] Bacteria, Urine [...] t [facility] [address] [place] [address], * (ABNORMAL) Culture urine (06/22/2024 12:00 AM [...] MICROBIOLOGY - GENERAL ORDER KINSEY Final Result [facility] ([facility]) [facility] [address] [place] [address], documented in this encounter Visit Diagnoses Diagnosis Other retention of urine documented in this encounter Additional Health Concerns Infection Onset Date Last Indicated Resolved Time ESBL 06/22/2024 06/22/2024 documented as of this encounter Care Teams Research Archaeologist Relationship Specialty Start Date End Date Uday Sheehan MD [address] [place] [address] Dr Donna [place] PCP - General Entry Level Programmer 12/19/16 documented as of this encounter
--- OUTSIDE RECORDS SUMMARY | 2024-11-14 14:07 | XMS_ITS | Encounter Summary ---
Author Organization [facility] Address [address] [place] [address] Care Team Providers Care Box Toe Stitcher Name Role Phone Uday Sheehan MD Primary Care Provider [phone] Encounter Details Date Type Department Care Team (Late st Contact Info) Description 06/11/2024 Lab Requisition [facility] - Main Lab [address] [place] [address] Zak Zuluaga MD [address] [place] [address] Anemia, unspecified Social History Tobacco Use Types [...] LAB CHEMISTRY METHOD 06/11/2024 10:54 AM EST [facility] Potassium 4.4 3.5 - 5.5 mmol/L LAB CHEMISTRY METHOD 06/11/2024 10:54 AM [facility] Chloride 112(H) 96 - 110 mmol/L LAB CHEMISTRY METHOD 06/11/2024 10:54 AM [facility] CO2 23 21 - 32 mmol/L LAB CHEMISTRY METHOD 06/11/2024 10:54 AM [facility] Anion Gap 10 3 - 11 LAB CHEMISTRY METHOD 06/11/2024 10:54 AM [facility] Glucose 88 70 - 100 mg/dL LAB CHEMISTRY METHOD 06/11/2024 10:54 AM [facility] BUN 42(H) 5 - 25 mg/dL LAB CHEMISTRY METHOD 06/11/2024 10:54 AM [facility] Creatinine 2.55(H) 0.70 - 1.30 mg/dL LAB CHEMISTRY METHOD 06/11/2024 10:54 AM [facility] eGFR 24(L) >=60 mL/min/1. 73m2 LAB CHEMISTRY METHOD 06/11/2024 10:54 AM [facility] Comment:Calculation based on the??Chronic Kidney Disease Epidemiology Collaboration (CKD-EPI) equation refit??without adjustment for race. BUN/Creatinine Ratio 16.5 LAB CHEMISTRY METHOD 06/11/2024 10:54 AM [facility] Calcium 7.9(L) 8.5 - 10.5 mg/dL LAB CHEMISTRY METHOD 06/11/2024 10:54 AM [facility] Blood Venous blood specimen / Unknown Venipuncture / Unknown 06/11/2024 8:24 AM EST 06/11/2024 9:58 AM EST us Zak Zuluaga MD LAB BLOOD ORDERABLES Final Resul t [facility] [address] [place] [address], * (ABNORMAL) Complete blood count (06/11/2024 8:24 AM EST) [facility] WBC 5.5 4.8 - 10.8 K/mcL LAB HEMETOLOGY METHOD 06/11/2024 10:35 AM [facility] RBC 2.90(L) 4.50 - 5.50 M/mcL LAB HEMETOLOGY METHOD 06/11/2024 10:35 AM [facility] Hemoglobin 7.7(L) 13.5 - 17.5 g/dL LAB HEMETOLOGY METHOD 06/11/2024 10:35 AM [facility] Hematocrit 25.5(L) 42.0 - 54.0 % LAB HEMETOLOGY METHOD 06/11/2024 10:35 AM [facility] MCV 87.6 79.0 - 98.0 FL LAB HEMETOLOGY METHOD 06/11/2024 10:35 AM [facility] MCH 26.5(L) 27.0 - 32.0 pcg LAB HEMETOLOGY METHOD 06/11/2024 10:35 AM [facility] MCHC 30.2(L) 32.0 - 37.0 g/dL LAB HEMETOLOGY METHOD 06/11/2024 10:35 AM [facility] RDW 16.7(H) 11.0 - 15.0 % LAB HEMETOLOGY METHOD 06/11/2024 10:35 AM [facility] Platelets 176 130 - 400 K/mcL LAB HEMETOLOGY METHOD 06/11/2024 10:35 AM [facility] MPV 10.7 7.0 - 11.0 FL LAB HEMETOLOGY METHOD 06/11/2024 10:35 AM [facility] NRBC 0.0 <1.0 % LAB HEMETOLOGY METHOD 06/11/2024 10:35 AM [facility] NRBC Absolute 0.00 <0.10 K/mcL LAB HEMETOLOGY METHOD 06/11/2024 10:35 AM EST [facility] Blood Venous blood specimen / Unknown Venipuncture / Unknown 06/11/2024 8:24 AM EST 06/11/2024 9:58 AM EST us Zak Zuluaga MD LAB BLOOD ORDERABLES Final Resul t [facility] [address] [place] [address], documented in this encounter Visit Diagnoses Diagnosis Anemia, unspecified documented in this encounter Additional Health Concerns Infection Onset Date Last Indicated Resolved Time ESBL 06/22/2024 06/22/2024 documented as of this encounter Care Teams Box Toe Stitcher Relationship Specialty Start Date End Date Uday Sheehan MD [address] [place] [address] Dr Donna [place] PCP - General Senior Cytotechnologist 12/19/16 documented as of this encounter
--- OUTSIDE RECORDS SUMMARY | 2024-11-14 14:07 | XMS_ITS ---
Author Organization [facility] Care Team Providers Care Unit Operator Name Role Phone Edda De Luna Unavailable Unavailable Tri Sumner Unavailable Unavailable Natanael Zazueta Unavailable Unavailable Rakan, Tabby M Unavailable Unavailable Olaf, Radha Unavailable Unavailable Webley, Joana Unavailable Unavailable Soja, Esme Unavailable Unavailable Guy, Janeth Unavailable Unavailable [place]ville, Lidia Unavailable Unavailable Lusas, Neisha Unavailable Unavailable Umair Yanet Unavailable Unavailable Raquel Olvera Unavailable Unavail able Caty VIVAR, Yeimy Umaña Unavailable Unavailable Angela, Jagruti Unavailable Unavailable [place], Merlyn Unavailable Unavailable Shanda Merlyn Unavailable Unavailable Zepke, Annie Unavailable Unavailable Heuser, Natalie Unavailable Unavailable Grippin, Megan Unavailable Unavailable Marisol, Meg Unavailable Unavailable Melvin Meg Unavailable Unavailable Planeta, Helena Unavailable Unavailable Dedra Puentesn Unavailable Unavailable Anjelica, Paty Unavailable Unavailable Shirokaja, Keely Unavailable Unavailable Frances, Anita Unavailable Unavailable Mainrenea, Shadrack Unavailable Unavailable Melvin, Erica Unavailable Unavailable Lee Ann, Brady Unavailable Unavailable Colon-Cartegna, Shahana Unavailable Unavailabl e Allergies and adverse reactions Code CodeSystem Substance Reaction Severity StartDate Concern Status 8701 RXNORM Procaine Unknown 07/10/2024 active 5640 RXNORM Ibuprofen Unknown 07/10/2024 active 3423 RXNORM HYDROmorphone Unknown 07/10/2024 active Care Team Name Role Address Phone Organization Dates Tabby Bledsoe PCP [address] [place] [address], [place], [address], [facility] (Office): : [facility] 09/17/2024 - present Edda De Luna Attending Physician [address] [place] [address], [place], [address], [facility] (Office): : [phone] [facility] 09/17/2024 - present Tri [place], [address], [facility] (Office): : [facility] 09/17/2024 - present Natanael ZHU Attending Physician [facility] 09/17/2024 - present Radha Babin Attending Physician [facility] (Office): : [facility] 09/17/2024 - present Joana Tatum Attending Physician [address] [place] [address], [place] [address], [facility] (Office): : [facility] 09/17/2024 - present Emse Samuels Attending Physician [address] [place] [address], [place], [address], [facility] (Office): : [phone] [facility] 09/17/2024 - present Janeth Guy Attending Physician [address] [facility] [address], [place], [address], [facility] (Office): : [facility] 09/17/2024 - present Lidia Barry Attending Physician [address] [facility] [address], [address], [place] (Office): : [phone] [facility] 09/17/2024 - present Neisha Avendaño Attending Physician [facility], [address], [facility] (Office): [facility] 09/17/2024 - present Yanet Block Attending Physician [address] [facility] [address], [address], [facility] (Office): : [facility] 09/17/2024 - present Raquel little Attending Physician [address] [facility] [address], [place], [address], [facility] (Office): : [phone] [facility] 09/17/2024 - present Yeimy Byrne NP Attending Physician [address] [facility] [address] [address], [facility] (Office): [facility] 09/17/2024 - present Jagruti Miller Attending Physician [address] [place], [address], [facility] (Office): : [phone] [facility] 09/17/2024 - present Merlyn Locke Attending Physician [address] [place] [address] [address], [address], [facility] (Office): : [facility] 09/17/2024 - present Merlyn Land Attending Physician [place], [facility] 09/17/2024 - present Annie Lombardi Attending Physician [place], [facility] 09/17/2024 - present Natalie Forman Attending Physician [address], [address], [facility] (Office): : [phone] [facility] 09/17/2024 - present Megan Tafoya Attending Physician [address] [place] [address], [address], [facility] (Office): : [phone] [facility] 09/17/2024 - present Meg Damon Attending Physician [facility] [place] [address], [place], [address], [facility] (Office): : [phone] [facility] 09/17/2024 - present Meg Charles Attending Physician [address], [address], [facility] (Office): : [facility] 09/17/2024 - present Helena Camarillo Attending Physician [place], [place], [place] (Office): : [facility] 09/17/2024 - present Maya Puentes Attending Physician [address], [address], [facility] (Office): : [phone] [facility] 09/17/2024 - present Paty Dejesus Attending Physician [address] [place], [address], [facility] (Office): : [phone] [facility] 09/17/2024 - present Keely Lee Attending Physician [facility] 09/17/2024 - present Anita Daniels Attending Physician [address] [facility] [address], [place], [address], [facility] (Office): : [phone] [facility] 09/17/2024 - present Yin Boone Attending Physician [address] [facility] [address], [place], [address], [facility] (Office): : [facility] 09/17/2024 - present Erica Charles Attending Physician [address] [facility] [address], [place], [address], [facility] (Office): [facility] 09/17/2024 - present Brady Nance Attending Physician [facility] 09/17/2024 - present Shahana Kang Attending Physician [address] [place] [address], [place], [address], [facility] (Office): [phone] [facility] 09/17/2024 - present Imaging Narrative Note Date Imaging Narrative No te 10/17/2024 HEEL/CALCANEUS MIN 2 V, RIGHTFINDINGS: Subtle heterogeneity of the calcaneus. Soft tissues appear swollen with ulceration.CONCLUSION: Findings suspicious for calcaneal osteomyelitis, recommend MRI.ELECTRONICALLY SIGNED BY ERICA JACOBO M.D. 10/17/2024 5:26:29 AM EDT.Reason for Study: L89.90 PRESSURE ULCER OF UNSPECIFIED SITE, UNSPECIFIED STAGEPrincipal Result Design Maker: ERICA JACOBO ([id number])Manager Field: LOUISA WESLEY ([email or web address])Job Service Consultant Manager Field: ALL Pack Section Description Status Target Date Ramon's Pressure ulcer kristen l show signs of healing and remain free from infection by/through review date. Active 04/23/2025 Ramon has stated preferenc e for self-directed activities in the comfort of his room, He will be open to room visits through next review date. Active 04/23/2025 Ramon will be able to comm unicate basic needs on a daily basis through the review date. Active 04/23/2025 Ramon will be able to make basic needs known on a daily basis through the review date. Active 04/23/2025 Ramon will be free from co mplications related to infection through the review date. Active 04/23/2025 Ramon will be free of falls through the review date. Active 04/23/2025 Ramon will be free of infection by the review date. Active 04/23/2025 Ramon will be/remain free from catheter-related trauma through review date. Active 04/23/2025 Ramon will be/remain free of psychotropic drug related complications, including movement disorder, discomfort, hypotension, gait disturbance, constipation/impaction or cognitive/behavioral impairment through review date. Active 1 Ramon will exhibit indicat ors of depression, anxiety or sad mood less than daily by review date. Active 04/23/2025 Ramon will have an underst anding of the disease process and the importance of compliance with treatment as evidenced by through the review date. Active 04/23/2025 Ramon will have clear lung sounds, heart rate and rhythm within normal limits through the review date. Active 04/23/2025 Ramon will have no complic ations r/t wounds of the coccyx through the review date. Active 04/23/2025 Ramon will have no s/sx of poor oxygen absorption through the review date. Active 04/23/2025 Ramon will have not have a ny complications related to IV Therapy through the review date. Active 04/23/2025 Ramon will improve current level of function in self-care ADLs through the review date. Resident will be able to reach PLOF goals set by therapy. Active 04/23/2025 Ramon will increase level of functional mobility by through the next review date. Active 04/23/2025 Ramon will maintain curren t level of cognitive function through the review date. Active 04/23/2025 Ramon will maintain or dev elop clean and intact skin by the review date. Active 04/23/2025 Ramon will remain free fro m discomfort, complications or s/sx related to gastro-intestinal alterations through review date. Active 04/23/2025 Ramon will remain free of complications related to immobility, including contractures, thrombus formation, skin-breakdown, fall related injury through the next review date. Active Ramon will show no s/sx of Urinary infection through review date. Active 04/23/2025 Ramon's diet texture will be appropriate to meet needs, select preferences AEB po's >75% most meals/supplement, no s/s of aspiration, no significant wt changes, no s/s dehydration, wounds improved. Active 04/23/2025 Ramon's discharge goals are: return to the [facility]. Active 04/23/2025 Ramon's insertion site kristen l be free of s/sx of infection through the review date. Active 04/23/2025 Ramon/HCP/Guardian's Advan renetta Directives will be honored through next review Active 04/23/2025 The resident will have a nor mal bowel movement at least every 3 days through the review date. Active 04/23/2025 The resident will maintain t he ability to seek social contact and stimulation through the review date. Active 04/23/2025 Functional Status Code Name Recorded Time Value Entered By Chair/hqn-ek-[id number] transfer 11/13/2024 Dependent iluciano Eating 11/13/2024 Independent [id number] Lower body dressing 11/13/2024 Dependent iluciano Lying to sitting on side of bed 11/13/2024 Dependent iluciano Oral hygiene 11/13/2024 Dependent iluciano Personal hygiene 11/13/2024 Dependent iluciano Roll left and right 11/13/2024 Dependent iluciano Shower/bathe self 11/13/2024 Dependent iluciano Sit to lying 11/13/2024 Dependent iluciano Sit to stand 11/13/2024 Dependent iluciano Toilet transfer 11/13/2024 Dependent iluciano Toileting hygiene 11/13/2024 Dependent iluciano Upper body dressing 11/13/2024 Dependent iluciano Wheel 150 feet 11/13/2024 Dependent iluciano Wheel 50 feet with two turns 11/13/2024 Dependent iluciano Immunizations Immunization Status Vaccine Details Vaccine Code CodeSystem Date Notes Influenza-High Dose(Flublok) completed created date: 07/23/2024 administered date: 04/08/2024 Medications Section Medication Name Status Code CodeSystem Dose Route Frequency Admin Type Sig Text Start Date End Date Atorvastatin Calcium Oral Tablet 40 MG aborted 261522 RXNORM 40 mg Oral one time a day Routine Give 40 mg by mouth one time a day relate d to HYPERL IPIDEM [place], UNSPEC IFIED (E78.5 ) 11/10 Lactobacillus Oral Tablet active 724630 5 RXNORM 1 tablet Oral two times a day Routine Give 1 tablet by mouth two times a day for abx use 2024 - Fluticasone Propionate Nasal Suspension 50 MCG/ACT active 228509 7 RXNORM 2 spray Nasal in the morning Routine 2 spray in both nostri ls in the mornin g for allerg ies 2024 - Gabapentin Oral Tablet 100 MG aborted 170793 RXNORM 100 mg Oral two times a day Routine Give 100 mg by mouth two times a day for pain 11/07 Pantoprazole Sodium Oral Tablet Delayed Release 40 MG aborted 769178 RXNORM 40 mg Oral two times a day Routine Give 40 mg by mouth two times a day for GERD 11/02 Thiamine HCl Oral Tablet active 100 mg Oral one time a day Routine Give 100 mg by mouth one time a day for vitami n 2024 - Milk of Magnesia Suspension 400 MG/5ML active 285859 RXNORM 30 ml Oral as needed PRN Give 30 ml by mouth as needed for Consti pation (Step 1) As needed if no bowel moveme nt for three days. (Do not use for Hemodi alysis patien ts). 2024 - Acetaminophen Tablet 325 MG active 981602 RXNORM 2 tablet Oral as needed PRN Give 2 tablet by mouth every 6 hours as needed for Pain Pain Total dosage for acetam inophe n and medica tions that contai n acetam inophe n should not exceed 3 grams / 24 hours. AND Give 2 tablet by mouth every 6 hours as needed for Fever greate r than 100.0F Total dosage for acetam inophe n and medica tions that contai n acetam inophe n should not exceed 3 grams / 24 hours. 2024 - 986905 RXNORM 2 tablet Oral as needed PRN Give 2 tablet by mouth every 6 hours as needed for Pain Pain Total dosage for acetam inophe n and medica tions that contai n acetam inophe n should not exceed 3 grams / 24 hours. AND Give 2 tablet by mouth every 6 hours as needed for Fever greate r than 100.0F Total dosage for acetam inophe n and medica tions that contai n acetam inophe n should not exceed 3 grams / 24 hours. 2024 - Bisacodyl Suppository 10 MG active 120105 RXNORM 1 suppos itory Rectal as needed PRN Insert 1 suppos itory rectal ly as needed for If no bowel moveme nt for 8 hours after Milk of Magnes ia 2024 - Amoxicillin Oral Tablet 875 MG aborted 014250 RXNORM 1 tablet Oral two times a day Routine Give 1 tablet by mouth two times a day for osteom yeliti s 11/02 Vashe Cleansing External Solution aborted n/a n/a Topical one time a day Routine Apply to wound topica lly one time a day for wounds 11/04 Doxycycline Hyclate Oral Tablet 100 MG aborted 768030 3 RXNORM 1 tablet Oral every 12 hours Routine Give 1 tablet by mouth every 12 hours relate d to 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[facility] , SITE UNSPEC IFIED (M46.2 0) 11/02 Zinc Sulfate Oral Tablet 220 (50 Zn) MG aborted 691233 RXNORM 220 mg Oral one time a day Routine Give 220 mg by mouth one time a day for vitami n 11/14 Miconazole Nitrate External Cream 2 % active 172280 RXNORM n/a n/a Topical every 12 hours Routine Apply to rash topica lly every 12 hours for rash pearl wound of sacral area. 2024 - Senna Oral Tablet active 2 tablet Oral as needed PRN Give 2 tablet by mouth every 24 hours as needed for consti pation 2024 - Artificial Tears Ophthalmic Solution active 1 drop Ophthal marcelo as needed PRN Instil l 1 drop in both eyes every 6 hours as needed for Dry eye 2024 - Doxycycline Hyclate Oral Tablet 100 MG aborted 031055 3 RXNORM 1 tablet Oral every 12 hours Routine Give 1 tablet by mouth every 12 hours relate d to 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[facility], SITE UNSPEC IFIED (M46.2 0) until 2024 23:59 11/02 Icy Hot External Patch active n/a n/a Topical in the morning Routine Apply to left knee topica lly in the mornin g for pain relate d to UNSPEC IFIED LACK OF COORDI NATION (R27.9 ) 2024 - Polyethylene Glycol 3350 Oral Powder 17 GM/SCOOP active 168039 RXNORM 17 gram Oral in the morning Routine Give 17 gram by mouth in the mornin g for Consti pation 2024 - Melatonin Oral Capsule 10 MG active 771526 RXNORM 10 mg Oral at bedtime Routine Give 10 mg by mouth at bedtim e relate d to OBSTRU CTIVE SLEEP APNEA (ADULT ) (PEDIA TRIC) (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 3) 2024 - traZODone HCl Oral Tablet 50 MG aborted 425798 RXNORM 50 mg Oral in the evening Routine Give 50 mg by mouth in the evenin g for anxiet y relate d to OTHER ABNORM ALITIE S OF GAIT AND MOBILI TY (R26.8 9) 11/10 traMADol HCl Oral Tablet 100 MG aborted 247236 5 RXNORM 100 mg Oral as needed PRN Give 100 mg by mouth every 6 hours as needed for pain and healin g relate d to 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[facility], SITE UNSPEC IFIED (M46.2 0) 11/10 Amoxicillin Oral Tablet 875 MG aborted 152545 RXNORM 1 tablet Oral two times a day Routine Give 1 tablet by mouth two times a day for osteom yeliti s until 2024 08:59 11/02 Amoxicillin Oral Tablet 875 MG active 234270 RXNORM 1 tablet Oral two times a day Routine Give 1 tablet by mouth two times a day for osteom yeliti s until 2024 08:59 11/30 Zofran Oral Tablet 4 MG active 848262 RXNORM 4 mg Oral as needed PRN Give 4 mg by mouth every 8 hours as needed for nausea relate d to PRESSU RE ULCER OF SACRAL REGION , STAGE 4 (L89.1 54) 2024 - Docusate Sodium Oral Capsule 100 MG aborted 338966 5 RXNORM 100 mg Oral two times a day Routine Give 100 mg by mouth two times a day for Consti pation 11/02 Heparin Sodium (Porcine) Injection Solution aborted 5000 unit Subcuta neous three times a day Routine Inject 5000 unit subcut aneous ly three times a day for Prophy laxis relate d to 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, SITE UNSPEC IFIED (M46.2 0) 11/10 Levothyroxine Sodium Oral Tablet aborted 0.1 mg Oral one time a day Routine Give 0.1 mg by mouth one time a day relate d to HYPOTH YROIDI SM, 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 2024 - Doxycycline Hyclate Oral Tablet 100 MG active 444524 3 RXNORM 1 tablet Oral every 12 hours Routine Give 1 tablet by mouth every 12 hours relate d to 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[place] [facility], SITE UNSPEC IFIED (M46.2 0) until 2024 23:59 11/23 Docusate Sodium Oral Capsule 100 MG active 730878 5 RXNORM 200 mg Oral as needed PRN Give 200 mg by mouth every 12 hours as needed for consti pation relate d to MUSCLE WEAKNE SS (GENER ALIZED ) (M62.8 1) 2024 - Iron Oral Tablet 325 (65 Fe) MG active 325 mg Oral two times a day Routine Give 325 mg by mouth two times a day relate d to ANEMIA , UNSPEC IFIED (D64.9 ) 2024 - traZODone HCl Oral Tablet 50 MG active 322290 RXNORM 25 mg Oral as needed PRN Give 25 mg by mouth every 12 hours as needed for Depres kathy for 2 Weeks 11/16 Pantoprazole Sodium Oral Tablet Delayed Release 40 MG aborted 080175 RXNORM 40 mg Oral two times a day Routine Give 40 mg by mouth two times a day for GERD until 2024 23:59 11/10 Albuterol Sulfate Nebulization Solution (2.5 MG/3ML) 0.083% complete d 310190 RXNORM 3 ml Inhalat ion every 6 hours Routine 3 ml inhale orally via nebuli zer every 6 hours for Cough, wheeze for 5 Days 11/08 Vashe Cleansing External Solution aborted n/a n/a Topical every day shift Routine Apply to wound topica lly every day shift for wounds 11/10 Gabapentin Oral Tablet 100 MG active 991944 RXNORM 2 tablet Oral two times a day Routine JUSTINA* * Give 2 tablet by mouth two times a day for Pain take 2 tablet s two times daily 2024 - traZODone HCl Oral Tablet 50 MG active 059166 RXNORM 50 mg Oral in the evening Routine Give 50 mg by mouth in the evenin g for anxiet y relate d to OTHER ABNORM ALITIE S OF GAIT AND MOBILI TY (R26.8 9) 2024 - Levothyroxine Sodium Oral Tablet active 0.1 mg Oral one time a day Routine Give 0.1 mg by mouth one time a day relate d to HYPOTH YROIDI SM, 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 ) 2024 - Diphenoxylate -Atropine Oral Liquid 2.5-0.025 MG/5ML aborted 661208 8 RXNORM 5 ml Oral one time a day Routine Give 5 ml by mouth one time a day for Diarrh ea hold for consti pation 11/10 Heparin Sodium (Porcine) Injection Solution aborted 5000 unit Subcuta neous three times a day Routine Inject 5000 unit subcut aneous ly three times a day for Prophy laxis relate d to 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[place] [facility], SITE UNSPEC IFIED (M46.2 0) 11/12 Vashe Cleansing External Solution active n/a n/a Topical every day shift Routine Apply to wound topica lly every day shift for wounds 2024 - Pantoprazole Sodium Oral Tablet Delayed Release 40 MG active 359704 RXNORM 40 mg Oral two times a day Routine Give 40 mg by mouth two times a day for GERD until 2024 23:59 12/07 Finasteride Oral Tablet 5 MG active 210634 RXNORM 5 mg Oral one time a day Routine Give 5 mg by mouth one time a day relate d to RETENT ION OF URINE, UNSPEC IFIED (R33.9 ) 2024 - Doxazosin Mesylate Oral Tablet 2 MG active 451601 RXNORM 2 mg Oral at bedtime Routine Give 2 mg by mouth at bedtim e relate d to RETENT ION OF URINE, UNSPEC IFIED (R33.9 ) hold for SBP <90 2024 - Lomotil Oral Tablet 2.5-0.025 MG active 749283 1 RXNORM 1 tablet Oral one time a day Routine Give 1 tablet by mouth one time a day for Diarrh ea hold for mis suqires 2024 - Atorvastatin Calcium Oral Tablet 40 MG active 856369 RXNORM 40 mg Oral one time a day Routine Give 40 mg by mouth one time a day relate d to HYPERL IPIDEM [place], UNSPEC IFIED (E78.5 ) 2024 - Amiodarone HCl Oral Tablet 200 MG active 380824 RXNORM 200 mg Oral one time a day Routine Give 200 mg by mouth one time a day relate d to 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 ) 2024 - traMADol HCl Oral Tablet 100 MG active 899438 5 RXNORM 100 mg Oral as needed PRN Give 100 mg by mouth every 6 hours as needed for pain and healin g relate d to 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[place] [facility], SITE UNSPEC IFIED (M46.2 0) 2024 - Zinc Sulfate Oral Tablet 220 (50 Zn) MG active 419369 RXNORM 220 mg Oral one time a day Routine Give 220 mg by mouth one time a day for vitami n until 2024 23:59 11/17 Melatonin Oral Tablet 10 MG aborted 151379 6 RXNORM 10 mg Oral as needed PRN Give 10 mg by mouth every 24 hours as needed for insomn ia 10/29 traZODone HCl Oral Tablet 50 MG aborted 205665 RXNORM 25 mg Oral in the afternoon Routine Give 25 mg by mouth in the aftern oon for anxiet y AND Give 25 mg by mouth every 12 hours as needed for anxiet y/rest lessne ss 10/29 431077 RXNORM 25 mg Oral as needed PRN Give 25 mg by mouth in the aftern oon for anxiet y AND Give 25 mg by mouth every 12 hours as needed for anxiet y/rest lessne ss 10/29 Gabapentin Oral Tablet aborted 100 mg Oral two times a day Routine Give 100 mg by mouth two times a day for pain 10/29 Senna Oral Tablet 8.6 MG aborted 2 mg Oral one time a day Routine Give 2 mg by mouth one time a day for consti pation 10/29 Atorvastatin Calcium Oral Tablet 40 MG aborted 256326 RXNORM 40 mg Oral one time a day Routine Give 40 mg by mouth one time a day for choles terol contro l 10/29 Ascorbic Acid Oral Tablet 500 MG aborted 762969 RXNORM 500 mg Oral two times a day Routine Give 500 mg by mouth two times a day for vit 10/29 Nystatin External Powder 935073 UNIT/GM aborted 015990 RXNORM n/a n/a Topical every day and evening shift Routine Apply to groin topica lly every day and evenin g shift for fungal rash 10/29 Doxazosin Mesylate Oral Tablet 2 MG aborted 619132 RXNORM 4 mg Oral at bedtime Routine Give 4 mg by mouth at bedtim e for BPH 10/29 Famotidine Oral Tablet 20 MG aborted 568585 RXNORM 20 mg Oral at bedtime Routine Give 20 mg by mouth at bedtim e for GERD 10/29 Milk of Magnesia Suspension 400 MG/5ML aborted 753873 RXNORM 30 ml Oral as needed PRN Give 30 ml by mouth as needed for Consti pation (Step 1) As needed if no bowel moveme nt for three days. (Do not use for Hemodi alysis patien ts). 10/29 Polyvinyl Alcohol Ophthalmic Solution 1.4 % aborted 240718 RXNORM 1 drop Ophthal marcelo as needed PRN Instil l 1 drop in both eyes every 6 hours as needed for dry eyes 10/29 Zofran Oral Tablet 4 MG aborted 116186 RXNORM 4 mg Oral as needed PRN Give 4 mg by mouth every 8 hours as needed for Nausea ;Nause a and Vomiti ng 10/29 Cold & Hot Medicated External Patch 5 % aborted n/a n/a Topical one time a day Routine Apply to left knee topica lly one time a day for pain 10/29 Levothyroxine Sodium Oral Tablet aborted 0.1 mg Oral one time a day Routine Give 0.1 mg by mouth one time a day for therap eutic replac ement 10/29 Protonix Oral Tablet Delayed Release 40 MG aborted 466523 RXNORM 40 mg Oral two times a day Routine Give 40 mg by mouth two times a day for GERD 10/29 Miconazole Nitrate External Ointment 2 % aborted 927381 RXNORM n/a n/a Topical every day and evening shift Routine Apply to coccyx topica lly every day and evenin g shift for rash 10/29 Fleet Enema Enema 7-19 GM/118ML aborted 533025 RXNORM 1 dose Rectal as needed PRN Insert 1 dose rectal ly as needed for Consti pation (Step 3) as needed if no bowel moveme nt for 8 hours after bisaco dyl suppos itory. 10/29 Acetaminophen Tablet 325 MG aborted 248333 RXNORM 2 tablet Oral as needed PRN Give 2 tablet by mouth every 6 hours as needed for Pain Pain Total dosage for acetam inophe n and medica tions that contai n acetam inophe n should not exceed 3 grams / 24 hours. AND Give 2 tablet by mouth every 6 hours as needed for Fever greate r than 100.0F Total dosage for acetam inophe n and medica tions that contai n acetam inophe n should not exceed 3 grams / 24 hours. 10/29 588390 RXNORM 2 tablet Oral as needed PRN Give 2 tablet by mouth every 6 hours as needed for Pain Pain Total dosage for acetam inophe n and medica tions that contai n acetam inophe n should not exceed 3 grams / 24 hours. AND Give 2 tablet by mouth every 6 hours as needed for Fever greate r than 100.0F Total dosage for acetam inophe n and medica tions that contai n acetam inophe n should not exceed 3 grams / 24 hours. 10/29 Bisacodyl Suppository 10 MG aborted 955992 RXNORM 1 suppos itory Rectal as needed PRN Insert 1 suppos itory rectal ly as needed for If no bowel moveme nt for 8 hours after Milk of Magnes ia 10/29 Multivitamin Oral Tablet aborted 1 tablet Oral one time a day Routine Give 1 tablet by mouth one time a day for supple ment 10/29 MiraLax Oral Powder 17 GM/SCOOP aborted 420559 RXNORM 1 scoop Oral one time a day Routine Give 1 scoop by mouth one time a day for consti pation 10/29 Amiodarone HCl Oral Tablet 200 MG aborted 219687 RXNORM 1 tablet Oral one time a day Routine Give 1 tablet by mouth one time a day for A Fib 10/29 Ferrous Sulfate Oral Tablet 325 (65 Fe) MG aborted 236115 RXNORM 325 mg Oral two times a day Routine Give 325 mg by mouth two times a day for iron 10/29 Finasteride Oral Tablet 5 MG aborted 030428 RXNORM 5 mg Oral one time a day Routine Give 5 mg by mouth one time a day for BPH 10/29 Aspirin Oral Tablet aborted 81 mg Oral one time a day Routine Give 81 mg by mouth one time a day for heart health 10/29 Thiamine Mononitrate Oral Tablet 100 MG aborted 336098 RXNORM 100 mg Oral one time a day Routine Give 100 mg by mouth one time a day for supple ment 10/29 Fluticasone Propionate Nasal Suspension 50 MCG/ACT aborted 116642 7 RXNORM 2 spray Nasal one time a day Routine 2 spray in both nostri ls one time a day for allerg ies 10/29 Colace Oral Capsule 100 MG aborted 919743 6 RXNORM 100 mg Oral two times a day Routine Give 100 mg by mouth two times a day for consti pation 10/29 Plavix Oral Tablet 75 MG aborted 410396 RXNORM 75 mg Oral one time a day Routine Give 75 mg by mouth one time a day for antico agulat ion 10/29 Lactobacillus Oral Tablet aborted 883598 5 RXNORM 1 capsul e Oral two times a day Routine Give 1 capsul e by mouth two times a day for probio tic 10/29 Sodium Hypochlorite External Solution 0.25 % aborted 049048 RXNORM n/a n/a Topical every day and evening shift Routine Apply to Coccyx topica lly every day and evenin g shift for Wound To coccyx wound; cleans e with normal saline , pack with Dankin 's soaked gauze, cover with dry clean dressi ng daily. AND Apply to coccyx topica lly as needed for soilag e To coccyx wound; cleans e with normal saline , pack with Dankin 's soaked gauze, cover with dry clean dressi ng daily. 10/16 471735 RXNORM n/a n/a Topical as needed PRN Apply to Coccyx topica lly every day and evenin g shift for Wound To coccyx wound; cleans e with normal saline , pack with Dankin 's soaked gauze, cover with dry clean dressi ng daily. AND Apply to coccyx topica lly as needed for soilag e To coccyx wound; cleans e with normal saline , pack with Dankin 's soaked gauze, cover with dry clean dressi ng daily. 10/16 traMADol HCl Oral Tablet 100 MG aborted 287502 5 RXNORM 100 mg Oral as needed PRN Give 100 mg by mouth every 6 hours as needed for modera te/sev ere pain 10/29 Santyl External Ointment 250 UNIT/GM aborted 886226 7 RXNORM n/a n/a Topical every day shift Routine Apply to Left Hip topica lly every day shift for Wound 10/16 Santyl External Ointment 250 UNIT/GM aborted 232370 7 RXNORM n/a n/a Topical every day shift Routine Apply to Right heel topica lly every day shift for Wound To right heel; cleans e with normal saline , apply Santyl , apply calciu m algina te, wrap with kerlix daily. 10/29 Sodium Hypochlorite External Solution 0.25 % aborted 591440 RXNORM n/a n/a Topical every day and evening shift Routine Apply to Coccyx topica lly every day and evenin g shift for Wound until 2024 12:10 To coccyx wound; cleans e with normal saline , pack with Dankin 's soaked gauze, cover with dry clean dressi ng daily. AND Apply to coccyx topica lly as needed for soilag e To coccyx wound; cleans e with normal saline , pack with Dankin 's soaked gauze, cover with dry clean dressi ng daily. 10/29 371896 RXNORM n/a n/a Topical as needed PRN Apply to Coccyx topica lly every day and evenin g shift for Wound until 2024 12:10 To coccyx wound; cleans e with normal saline , pack with Dankin 's soaked gauze, cover with dry clean dressi ng daily. AND Apply to coccyx topica lly as needed for soilag e To coccyx wound; cleans e with normal saline , pack with Dankin 's soaked gauze, cover with dry clean dressi ng daily. 10/29 Vitamin C Oral Tablet active 500 mg Oral two times a day Routine Give 500 mg by mouth two times a day for wound healin g 2024 - Fleet Enema Enema 7-19 GM/118ML active 991363 RXNORM 1 dose Rectal as needed PRN Insert 1 dose rectal ly as needed for Consti pation (Step 3) as needed if no bowel moveme nt for 8 hours after bisaco dyl suppos itory. 2024 - Aspirin Oral Tablet active 1 tablet Oral one time a day Routine Give 1 tablet by mouth one time a day relate d to 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 ) 2024 - Famotidine Oral Tablet 20 MG active 139123 RXNORM 20 mg Oral at bedtime Routine Give 20 mg by mouth at bedtim e for GERD 2024 - Amiodarone HCl Oral Tablet 200 MG aborted 641498 RXNORM 200 mg Oral one time a day Routine Give 200 mg by mouth one time a day relate d to 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 ) 11/10 Doxazosin Mesylate Oral Tablet 2 MG aborted 917527 RXNORM 2 mg Oral at bedtime Routine Give 2 mg by mouth at bedtim e relate d to RETENT ION OF URINE, UNSPEC IFIED (R33.9 ) 11/10 Finasteride Oral Tablet 5 MG aborted 349320 RXNORM 5 mg Oral one time a day Routine Give 5 mg by mouth one time a day relate d to RETENT ION OF URINE, UNSPEC IFIED (R33.9 ) 11/10 Mental Status Section Date Assessment Total Score Description 10/19/2024 CAM 0 No delirium ind icated 10/10/2024 BIMS 13 cognitively int act CAM 0 No delirium ind icated PHQ-9 01 minimal depress ion Problems Problem # Description Date of onset Resolved Date Code CodeSystem Concern Status 1 WE[address]NESS [address] active 2 ABNORMAL POSTURE [address] active 3 MUSCLE WEAKNESS (GENERALIZED) [address] active 4 OTHER ABNORMALITIES OF GAIT AND MOBILITY [address] active 5 OSTEOMYELITIS OF VERTEBRA, SITE UNSPECIFIED [address] active 6 CELLULITIS OF BUTTOCK 025 09/18/[address] completed 7 ENCOUNTER FOR ADJUSTMENT AND MANAGEMENT OF VASCULAR ACCESS DEVICE 09/18/[address] completed 8 EXTENDED SPECTRUM BETA LACTAMASE (ESBL) RESISTANCE 025 09/18/[address] completed 9 IRON DEFICIENCY ANEMIA SECONDARY TO BLOOD LOSS (CHRONIC) 025 09/18/[address] completed 10 KLEBSIELLA PNEUMONIAE [K. PNEUMONIAE] THE CAUSE OF DISEASES CLASSIFIED ELSEWHERE 025 09/04/[address] completed 11 RESIDENTIAL (CURRENT) USE OF ANTIBIOTICS 025 09/18/[address] completed 12 OSTEOMYELITIS OF VERTEBRA, SACRAL AND SACROCOCCYGEAL REGION 025 09/18/[address] completed 13 OTHER ABNORMALITIES OF GAIT AND MOBILITY 025 09/18/[address] completed 14 PRESSURE ULCER OF LEFT ANKLE, UNSTAGEABLE [address] active 15 PRESSURE ULCER OF OTHER SITE, UNSTAGEABLE [address] active 16 PRESSURE-INDUCED DEEP TISSUE DAMAGE OF LEFT HEEL [address] active 17 PRESSURE-INDUCED DEEP TISSUE DAMAGE OF RIGHT HEEL [address] active 18 RETENTION OF URINE, UNSPECIFIED [address] active 19 URINARY TRACT INFECTION, SITE NOT SPECIFIED [address] active 20 ANEMIA, UNSPECIFIED [address] active 21 ATHEROSCLEROTIC HEART DISEASE OF [place] CORONARY ARTERY WITH UNSPECIFIED ANGINA PECTORIS [id number] active 22 NONRHEUMATIC AORTIC (VALVE) STENOSIS [address] active 23 ESSENTIAL (PRIMARY) HYPERTENSION [address] active 24 MUSCLE WEAKNESS (GENERALIZED) 025 09/04/[address] completed 25 MUSCLE WEAKNESS (GENERALIZED) 025 09/18/[address] completed 26 OTHER ABNORMALITIES OF GAIT AND MOBILITY 025 09/04/[address] completed 27 OTHER ENCEPHALOPATHY 025 09/04/[address] completed 28 PRESSURE ULCER OF LEFT ANKLE, STAGE 1 025 09/04/[address] completed 29 PRESSURE ULCER OF RIGHT ANKLE, UNSTAGEABLE [address] active 30 PRESSURE ULCER OF RIGHT HEEL, UNSTAGEABLE [address] active 31 PRESSURE ULCER OF SACRAL REGION, STAGE [address] active 32 UNSPECIFIED LACK OF COORDINATION [address] active 33 URINARY TRACT INFECTION, SITE NOT SPECIFIED 025 09/04/[address] completed 34 PERSONAL HISTORY OF OTHER MENTAL AND BEHAVIORAL DISORDERS 025 07/23/[address] completed 35 ACUTE ON CHRONIC COMBINED SYSTOLIC (CONGESTIVE) AND DIASTOLIC (CONGESTIVE) HEART FAILURE [address] active 36 BACTEREMIA 025 08/19/[address] completed 37 CHRONIC KIDNEY DISEASE, STAGE [address] UNSPECIFIED [address] active 38 CHRONIC SYSTOLIC (CONGESTIVE) HEART FAILURE [address] active 39 DYSPHAGIA, OROPHARYNGEAL PHASE [address] active 40 ENCOUNTER FOR FITTING AND ADJUSTMENT OF URINARY DEVICE [address] active 41 ESSENTIAL (PRIMARY) HYPERTENSION 025 07/11/[address] completed 42 EXTENDED SPECTRUM BETA LACTAMASE (ESBL) RESISTANCE 025 08/19/[address] completed 43 GASTRO-ESOPHAGEAL REFLUX DISEASE WITHOUT ESOPHAGITIS [address] active 44 GASTROSTOMY STATUS [address] active 45 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 025 09/04/[address] completed 46 HYPERLIPIDEMIA, UNSPECIFIED [address] active 47 HYPERTENSIVE CHRONIC KIDNEY DISEASE WITH STAGE 1 THROUGH STAGE 4 CHRONIC KIDNEY DISEASE, OR UNSPECIFIED CHRONIC KIDNEY DISEASE [address] active 48 HYPOTHYROIDISM, UNSPECIFIED [address] active 49 MUSCLE WEAKNESS (GENERALIZED) 025 08/19/[address] completed 50 OBSTRUCTIVE SLEEP APNEA (ADULT) (PEDIATRIC) [address] active 51 OTHER ABNORMALITIES OF GAIT AND MOBILITY 025 08/19/[address] completed 52 OTHER ESCHERICHIA COLI [E. COLI] THE CAUSE OF DISEASES CLASSIFIED ELSEWHERE 025 08/19/[address] completed 53 OTHER HYDRONEPHROSIS 025 08/19/[address] completed 54 PAROXYSMAL ATRIAL FIBRILLATION [address] active 55 PERSONAL HISTORY OF OTHER MENTAL AND BEHAVIORAL DISORDERS [address] active 56 PRESENCE OF UROGENITAL IMPLANTS 025 07/23/[address] completed 57 PRESSURE ULCER OF SACRAL REGION, STAGE 3 025 08/19/[address] completed 58 UNSPECIFIED ATRIAL FIBRILLATION 025 07/11/[address] completed 59 UNSPECIFIED DEMENTIA, UNSPECIFIED SEVERITY, WITHOUT BEHAVIORAL DISTURBANCE, PSYCHOTIC DISTURBANCE, MOOD DISTURBANCE, AND ANXIETY [address] active 60 UNSPECIFIED ESCHERICHIA COLI [E. COLI] THE CAUSE OF DISEASES CLASSIFIED ELSEWHERE 025 08/19/[address] completed 61 UNSPECIFIED LACK OF COORDINATION 025 08/19/[address] completed 62 URINARY TRACT INFECTION, SITE NOT SPECIFIED 025 08/19/[address] completed Reason for Referral No Reasons for Referral Entered Diagnostic Results Result Code Code System Date Test Result Interpretation Reference Range Status Notes 80158-4 LOINC 2024 HEEL/C ALCANE US MIN 2V Completed Result for: DEMI RAMON ( 1940, M) 81895-4 LOINC 2024 HEEL/C ALCANE US MIN 2V Final HEEL/CALCANEUS MIN 2V, RIGHTFINDINGS: Subtle heterogeneity of the calcaneus. Soft tissues appear swollen with ulceration.CONC LUSION: Findings suspicious for calcaneal osteomyelitis, recommend MRI.ELECTRONICA LLY SIGNED BY ERICA JACOBO M.D. 10/17/2024 5:26:29 AM EDT.Reason for Study: L89.90 PRESSURE ULCER OF UNSPECIFIED SITE, UNSPECIFIED STAGEPrincipal Result Design Maker: ERICA JACOBO ([id number])Jose hnician: LOUISA [email or web address])Transcr iption Manager Field: ALL Test Code Code System Name Date 10/16/2024 Social History Social History Observation Description Start Date End Date Code Code System Current Smoking Status Tobacco smoking consumption unknown 713276185 SNOMED CT Sex Assigned At Male 1940 20870-2 [facility] Vital Signs Code Code System Vitals Name Values and Units Timing Information 08805-4 [facility] Pain Level Value=0.0 11/14/2024 9279-1 [facility] Respiratory Rate Value=17.0 Units=/m in 11/14/2024 50575-3 [facility] O2 % BldC Oximetry Value=95.0 Units= % 11/14/2024 8462-4 [facility] Blood Pressure-Diastolic Value=49 Un its=mmHg 11/13/2024 8480-6 [facility] Blood Pressure-Systolic Tmsyu=626 Un its=mmHg 11/13/2024 8310-5 [facility] Body Temperature Value=97.8 Units=?? F 11/13/2024 8867-4 [facility] Heart rate Value=98.0 Units=/min 01/2025 16135-9 [facility] Weight Nvtjb=806.6 Units=Lbs 8302-2 [facility] Height Value=68.0 Units=Inches 09/04/2024 2339-0 [facility] Blood Sugar Jvpnx=492.0 Units=mg/dL 08/11/2024
--- OUTSIDE RECORDS SUMMARY | 2024-11-14 14:07 | XMS_ITS | Encounter Summary ---
Author Organization [facility] Address [address] [place] [address] Care Team Providers Care Recreation Instructor Name Role Phone Uday Sheehan Primary Care Provider [phone] Encounter Details Date Type Department Care Team (Late st Contact Info) Description 04/09/2024 Lab Requisition [facility] [address] [place] [address] Salo Whyte MD [address] [place] [address] Acute respiratory failure with hypoxia; No diagnosis [...] N-terminal ProBrain Natriuretic Peptide - [facility]/[place] Only (04/09/2024 8:51 AM EDT) Pro-B-Type Natriuretic Peptide 523 <=1,800 pg/mL 04/09/2024 9:31 AM EDT [facility] Comment: RULE IN CHF >/= [...] BLOOD ORDERABLES Final Result Performing Organization Address City/[facility]/ZIP Co de Phone Number [facility] [address] [address], [place] [phone] * Vitamin B12 (04/09/2024 8:51 AM EDT) Vitamin B12 636 232 - 1,245 pg/mL 04/09/2024 9:42 AM EDT [facility] Blood Structure of peripheral vein / Unknown Venipuncture / Unknown 04/09/2024 8:51 AM EDT 04/09/2024 8:52 AM EDT us Salo Whyte MD LAB BLOOD ORDERABLES Final Result Performing Organization Address [facility] Co de Phone Number [facility] [address] [address], [place] [phone] * (ABNORMAL) CBC Auto Differential (04/09/2024 8:51 AM EDT) Pathologist [facility] WBC 8.3 4.8 - 10.8 10*3/uL 04/09/2024 9:14 AM EDT [facility] RBC 2.86(L) 4.70 - 6.10 10*6/uL 04/09/2024 9:14 AM EDT [facility] Hemoglobin 8.0(L) 13.7 - 16.5 g/dL 04/09/2024 9:14 AM EDT [facility] Hematocrit 25.7(L) 40.5 - 48.5 % 04/09/2024 9:14 AM EDT [facility] MCV 89.9 80.0 - 94.0 fL 04/09/2024 9:14 AM EDT [facility] MCH 28.0 26.0 - 34.0 pg 04/09/2024 9:14 AM EDT [facility] MCHC 31.1 31.0 - 36.0 g/dL 04/09/2024 9:14 AM EDT [facility] RDW 17.2(H) 12.0 - 15.0 % 04/09/2024 9:14 AM EDT [facility] RDW Standard Deviation 54.8(H) 35.1 - 43.9 fL 04/09/2024 9:14 AM EDT [facility] Platelets 228 140 - 440 10*3/uL 04/09/2024 9:14 AM EDT [facility] MPV 10.8 9.4 - 12.4 fL 04/09/2024 9:14 AM EDT [facility] Neutrophil % 58.2 50.0 - 75.0 % 04/09/2024 9:14 AM EDT [facility] Immature Grans % 0.7 0.0 - 0.9 % 04/09/2024 9:14 AM EDT [facility] Lymphocyte % 22.1 20.0 - 44.0 % 04/09/2024 9:14 AM EDT [facility] Monocyte % 11.3 0.0 - 14.0 % 04/09/2024 9:14 AM EDT [facility] Eosinophil % 7.1(H) 0.0 - 5.0 % 04/09/2024 9:14 AM EDT [facility] Basophil % 0.6 0.0 - 2.0 % 04/09/2024 9:14 AM EDT [facility] Neutrophil # 4.85 1.80 - 7.70 10*3/uL 04/09/2024 9:14 AM EDT [facility] Immature Grans # 0.06(H) 0.00 - 0.03 10*3/uL 04/09/2024 9:14 AM EDT [facility] Lymphocyte # 1.80 1.00 - 4.75 10*3/uL 04/09/2024 9:14 AM EDT [facility] Monocyte # 0.90 0.00 - 6.00 10*3/uL 04/09/2024 9:14 AM EDT [facility] Eosinophil # 0.60 0.00 - 0.80 10*3/uL 04/09/2024 9:14 AM EDT [facility] Basophil # 0.10 0.00 - 0.20 10*3/uL 04/09/2024 9:14 AM EDT [facility] nRBC % 0.0 0 - 0 /100 WBCs 04/09/2024 9:14 AM EDT [facility] nRBC # <0.01 0.00 - 0.13 10*3/uL 04/09/2024 9:14 AM EDT [facility] Blood Structure of peripheral vein / Unknown Venipuncture / Unknown 04/09/2024 8:51 AM EDT 04/09/2024 8:52 AM EDT Salo Whyte MD LAB BLOOD ORDERABLES Final Result Performing Organization Address City/[facility]/ZIP Co de Phone Number [facility] [address] [address], [place] [phone] * (ABNORMAL) TSH (04/09/2024 8:51 AM EDT) TSH 10.800(H) 0.270 - 4.200 uIU/mL 04/09/2024 9:34 AM EDT [facility] Blood Structure of peripheral vein / Unknown Venipuncture / Unknown 04/09/2024 8:51 AM EDT 04/09/2024 8:52 AM EDT Salo Whyte MD LAB BLOOD ORDERABLES Final Result Performing Organization Address City/[facility]/ZIP Co de Phone Number [facility] [address] [address], [place] [phone] * T4, Free (04/09/2024 8:51 AM EDT) Free T4 1.40 0.80 - 1.80 ng/dL 04/09/2024 9:34 AM EDT [facility] Comment: Females: (ng/dL) First Trimester [...] Final Result Performing Organization Address [facility]/ZIP Co de Phone Number [facility] [address] [address], [place] [phone] * Magnesium (04/09/2024 8:51 AM EDT) MG 2.5 1.5 - 2.5 mg/dL 04/09/2024 9:34 AM EDT [facility] Blood Structure of peripheral vein / Unknown Venipuncture / Unknown 04/09/2024 8:51 AM EDT 04/09/2024 8:52 AM EDT Salo Whyte MD LAB BLOOD ORDERABLES Final Result [facility] [address] [address], [place] [phone] * Hemoglobin A1c (04/09/2024 8:51 AM EDT) Hemoglobin A1c 5.6 4.0 - 5.7 % 04/09/2024 9:25 AM EDT [facility] Estimated Average Glucose 114 mg/dL 04/09/2024 9:25 AM EDT [facility] Blood Structure of peripheral vein / Unknown Venipuncture / Unknown 04/09/2024 8:51 AM EDT 04/09/2024 8:52 AM EDT Salo Whyte MD LAB BLOOD ORDERABLES Final Result Performing Organization Address [facility]/ZIP Co de Phone Number [facility] [address] [address], [place] [phone] * Ammonia (04/09/2024 8:51 AM EDT) Ammonia 20 16 - 60 umol/L 04/09/2024 9:24 AM EDT [facility] Blood Structure of peripheral vein / Unknown Venipuncture / Unknown 04/09/2024 8:51 AM EDT 04/09/2024 8:52 AM EDT Salo Whyte MD LAB BLOOD ORDERABLES Final Result Performing Organization Address [facility] de Phone Number [facility] [address] [address], [place] [phone] * (ABNORMAL) Comprehensive Metabolic Panel (04/09/2024 8:51 AM EDT) NA 144 136 - 145 mmol/L 04/09/2024 9:34 AM EDT [facility] K 4.0 3.5 - 5.1 mmol/L 04/09/2024 9:34 AM EDT [facility] Cl 104 98 - 109 mmol/L 04/09/2024 9:34 AM EDT [facility] CO2 32 22 - 32 mmol/L 04/09/2024 9:34 AM EDT [facility] Anion Gap 12 >=0 04/09/2024 9:34 AM EDT [facility] Glucose 96 60 - 99 mg/dL 04/09/2024 9:34 AM EDT [facility] Creatinine 1.30(H) 0.50 - 1.12 mg/dL 04/09/2024 9:34 AM EDT [facility] Calcium 9.7 8.4 - 10.4 mg/dL 04/09/2024 9:34 AM T [facility] Total Protein 6.8 6.6 - 8.7 g/dL 04/09/2024 9:34 AM [facility] Albumin 3.1(L) 3.5 - 5.0 g/dL 04/09/2024 9:34 AM T [facility] Bilirubin, Total 0.2 0.2 - 1.2 mg/dL 04/09/2024 9:34 AM [facility] Alkaline Phosphatase 85 40 - 129 U/L 04/09/2024 9:34 AM [facility] AST 40 0 - 40 U/L 04/09/2024 9:34 AM [facility] ALT 28 <=41 U/L 04/09/2024 9:34 AM [facility] BUN 56(H) 8 - 23 mg/dL 04/09/2024 9:34 AM [facility] eGFR 54(L) >=60 mL/min/1. 73m2 04/09/2024 9:34 AM [facility] Comment:The estimated glomer ular filtration rate (eGFR) is calculated using a new formula developed by the [facility] task force to eliminate race-based correction [...] 2.1 - 4.2 g/dL 04/09/2024 9:34 AM [facility] A/G Ratio 0.8(L) 1.5 - 3.0 04/09/2024 9:34 AM EDT [facility] Blood Structure of peripheral vein / Unknown Venipuncture / Unknown 04/09/2024 8:51 AM EDT 04/09/2024 8:52 AM EDT Salo Whyte MD LAB BLOOD ORDERABLES Final Result [facility] [address] [place] [address], documented in this encounter Visit Diagnoses Diagnosis Acute respiratory failure with hypoxia (HCC) No diagnosis documented in this encounter Additional Health Concerns Infection Onset Date Last Indicated Resolved Time Multidrug resistant organisms MRSA 03/25/20242023 documented as of this encounter Care Teams Recreation Instructor Relationship Specialty Start Date End Date Uday Sheehan [address] [place] [address] [place] [address] PCP - General Internal Medicine 03/27/24 documented as of this encounter
--- OUTSIDE RECORDS SUMMARY | 2024-11-14 14:07 | XMS_ITS | Encounter Summary ---
Author Organization [facility] Address [address] [place] [address] Care Team Providers Care Folder Tier Name Role Phone Uday Sheehan MD Primary Care Provider [phone] Encounter Details Date Type Department Care Team (Late st Contact Info) Description 06/12/2024 Lab Requisition [facility] - Main Lab [address] [place] [address] Pearl Garcia MD [address] [place] [address] Abnormal results of liver function [...] ORDERABLES Final Resul t Performing Organization Address [facility] Co de Phone Number [facility] [address] [place] [address], [place] [phone] * (ABNORMAL) Triiodothyronine free (06/12/2024 9:20 AM EST) T3, Free 148(L) 230 - 420 pcg/dL LAB CHEMISTRY METHOD 06/12/2024 12:15 PM EST [facility] Blood Venous blood specimen / Unknown Venipuncture / Unknown 06/12/2024 9:20 AM EST 06/12/2024 11:19 AM EST us Pearl Garcia MD LAB BLOOD ORDERABLES Final Resul t [facility] [address] [place] [address], [place] [phone] * (ABNORMAL) Thyroid stimulating hormone (06/12/2024 9:20 AM EST) TSH 4.91(H) 0.40 - 4.00 mcIU/mL LAB CHEMISTRY METHOD 06/12/2024 12:15 PM EST [facility] Blood Venous blood specimen / Unknown Venipuncture / Unknown 06/12/2024 9:20 AM EST 06/12/2024 11:19 AM EST us Pearl Garcia MD LAB BLOOD ORDERABLES Final Resul t Performing Organization Address [facility] [[email or web address]] de Phone Number [facility] [address] [place] [address], [place] [phone] * (ABNORMAL) Alanine aminotransferase (06/12/2024 9:20 AM EST) ALT (SGPT) 127(H) 10 - 60 unit/L LAB CHEMISTRY METHOD 06/12/2024 12:03 PM EST [facility] Blood Venous blood specimen / Unknown Venipuncture / Unknown 06/12/2024 9:20 AM EST 06/12/2024 11:19 AM EST us Pearl Garcia MD LAB BLOOD ORDERABLES Final Resul t Performing Organization Address [facility] de Phone Number [facility] [address] [place] [address], [place] [phone] * (ABNORMAL) Aspartate aminotransferase (06/12/2024 9:20 AM EST) AST (SGOT) 185(H) 10 - 42 unit/L LAB CHEMISTRY METHOD 06/12/2024 12:04 PM EST [facility] Blood Venous blood specimen / Unknown Venipuncture / Unknown 06/12/2024 9:20 AM EST 06/12/2024 11:19 AM EST us Pearl Garcia MD LAB BLOOD ORDERABLES Final Resul t Performing Organization Address [facility] [[email or web address]] de Phone Number [facility] [address] [place] [address], [place] [phone] documented in this encounter Visit Diagnoses Diagnosis Abnormal results of liver function studies Nonspecific abnormal results of liver function study Hypothyroidism, unspecified documented in this encounter Additional Health Concerns Infection Onset Date Last Indicated Resolved Time ESBL 06/22/2024 06/22/2024 documented as of this encounter Care Teams Folder Tier Relationship Specialty Start Date End Date Uday Sheehan MD [address] [place] [address] Dr Donna MA PCP - General Taper Printed [employer] Layout 12/19/16 documented as of this encounter
--- OUTSIDE RECORDS SUMMARY | 2024-11-14 14:07 | XMS_ITS | Encounter Summary ---
Author Organization [facility] Address [address] [place] [address] Care Team Providers Care Architectural Job Captain Name Role Phone Uday Sheehan MD Primary Care Provider [phone] Encounter Details Date Type Department Care Team (Late st Contact Info) Description 08/31/2024 Lab Requisition [facility] - Main Lab [address] [facility] [place] [address] Tabby Bledsoe MD [address] [address] Bacteremia Social History Tobacco Use Types Packs/Day [...] documented as of this encounter Care Teams Architectural Job Captain Relationship Specialty Start Date End Date Uday Sheehan MD [address] [place] [address] PCP - General Bacteriologist Industrial 12/19/16 documented as of this encounter
--- OUTSIDE RECORDS SUMMARY | 2024-11-14 14:07 | XMS_ITS | Encounter Summary ---
Author Organization [facility] Address [address] [place] [address] Care Team Providers Care Security System Installer Name Role Phone Uday Sheehan Primary Care Provider [phone] Encounter Details Date Type Department Care Team (Late st Contact Info) Description 04/11/2024 Lab Requisition [facility] [address] [place] [address] Salo Whyte MD [address] [place] [address] Acute and chronic respiratory failure with hypoxia; [...] - 10.8 10*3/uL 04/11/2024 11:04 AM EDT [facility] RBC 2.95(L) 4.70 - 6.10 10*6/uL 04/11/2024 11:04 AM EDT [facility] Hemoglobin 8.0(L) 13.7 - 16.5 g/dL 04/11/2024 11:04 AM EDT [facility] Hematocrit 26.3(L) 40.5 - 48.5 % 04/11/2024 11:04 AM EDT [facility] MCV 89.2 80.0 - 94.0 fL 04/11/2024 11:04 AM EDT [facility] MCH 27.1 26.0 - 34.0 pg 04/11/2024 11:04 AM EDT [facility] MCHC 30.4(L) 31.0 - 36.0 g/dL 04/11/2024 11:04 AM EDT [facility] RDW 17.3(H) 12.0 - 15.0 % 04/11/2024 11:04 AM EDT [facility] RDW Standard Deviation 54.4(H) 35.1 - 43.9 fL 04/11/2024 11:04 AM EDT [facility] Platelets 226 140 - 440 10*3/uL 04/11/2024 11:04 AM EDT [facility] MPV 10.2 9.4 - 12.4 fL 04/11/2024 11:04 AM EDT [facility] Neutrophil % 62.6 50.0 - 75.0 % 04/11/2024 11:04 AM EDT [facility] Immature Grans % 0.8 0.0 - 0.9 % 04/11/2024 11:04 AM EDT [facility] Lymphocyte % 21.4 20.0 - 44.0 % 04/11/2024 11:04 AM EDT [facility] Monocyte % 10.4 0.0 - 14.0 % 04/11/2024 11:04 AM EDT [facility] Eosinophil % 4.3 0.0 - 5.0 % 04/11/2024 11:04 AM EDT [facility] Basophil % 0.5 0.0 - 2.0 % 04/11/2024 11:04 AM EDT [facility] Neutrophil # 5.02 1.80 - 7.70 10*3/uL 04/11/2024 11:04 AM EDT [facility] Immature Grans # 0.06(H) 0.00 - 0.03 10*3/uL 04/11/2024 11:04 AM EDT [facility] Lymphocyte # 1.70 1.00 - 4.75 10*3/uL 04/11/2024 11:04 AM EDT [facility] Monocyte # 0.80 0.00 - 6.00 10*3/uL 04/11/2024 11:04 AM EDT [facility] Eosinophil # 0.30 0.00 - 0.80 10*3/uL 04/11/2024 11:04 AM EDT [facility] Basophil # <0.03 0.00 - 0.20 10*3/uL 04/11/2024 11:04 AM EDT [facility] nRBC % 0.0 0 - 0 /100 WBCs 04/11/2024 11:04 AM EDT [facility] nRBC # <0.01 0.00 - 0.13 10*3/uL 04/11/2024 11:04 AM EDT [facility] Blood Structure of peripheral vein / Unknown Venipuncture / Unknown 04/11/2024 10:41 AM EDT 04/11/2024 10:41 AM EDT Salo Whyte MD LAB BLOOD ORDERABLES Final Result [facility] [address] [place] [address], * (ABNORMAL) Basic Metabolic Panel (04/11/2024 10:41 AM EDT) NA 141 136 - 145 mmol/L 04/11/2024 11:19 AM EDT [facility] K 3.8 3.5 - 5.1 mmol/L 04/11/2024 11:19 AM EDT [facility] Cl 100 98 - 109 mmol/L 04/11/2024 11:19 AM EDT [facility] CO2 32 22 - 32 mmol/L 04/11/2024 11:19 AM EDT [facility] BUN 45(H) 8 - 23 mg/dL 04/11/2024 11:19 AM EDT [facility] Creatinine 1.10 0.50 - 1.12 mg/dL 04/11/2024 11:19 AM EDT [facility] Glucose 106(H) 60 - 99 mg/dL 04/11/2024 11:19 AM EDT [facility] Calcium 9.3 8.4 - 10.4 mg/dL 04/11/2024 11:19 AM EDT [facility] Anion Gap 13 >=0 04/11/2024 11:19 AM EDT [facility] eGFR 66 >=60 mL/min/1. 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
--- OUTSIDE RECORDS SUMMARY | 2024-11-14 14:07 | XMS_ITS | Encounter Summary ---
Author Organization [facility] Address [address] [place] [address] Care Team Providers Care Code Inspector Name Role Phone Uday Sheehan Primary Care Provider [phone] Encounter Details Date Type Department Care Team (Late st Contact Info) Description 04/15/2024 Lab Requisition [facility] [address] [place] [address] Salo Whyte MD [address] [place] [address] Acute respiratory failure, unspecified whether with hypoxia [...] of this encounter Procedures * Due to [place] state law, this organization might not be [...] in this encounter Results * Due to [place] state law, this organization might not be sharing negative HIV tests. * (ABNORMAL) CBC Auto Differential (04/15/2024 12:05 PM EDT) WBC 6.4 4.8 - 10.8 10*3/uL 04/15/2024 12:45 PM EDT [facility] RBC 2.94(L) 4.70 - 6.10 10*6/uL 04/15/2024 12:45 PM EDT [facility] Hemoglobin 8.1(L) 13.7 - 16.5 g/dL 04/15/2024 12:45 PM EDT [facility] Hematocrit 26.2(L) 40.5 - 48.5 % 04/15/2024 12:45 PM EDT [facility] MCV 89.1 80.0 - 94.0 fL 04/15/2024 12:45 PM EDT [facility] MCH 27.6 26.0 - 34.0 pg 04/15/2024 12:45 PM EDT [facility] MCHC 30.9(L) 31.0 - 36.0 g/dL 04/15/2024 12:45 PM EDT [facility] RDW 17.3(H) 12.0 - 15.0 % 04/15/2024 12:45 PM EDT [facility] RDW Standard Deviation 55.5(H) 35.1 - 43.9 fL 04/15/2024 12:45 PM EDT [facility] Platelets 216 140 - 440 10*3/uL 04/15/2024 12:45 PM EDT [facility] MPV 10.4 9.4 - 12.4 fL 04/15/2024 12:45 PM EDT [facility] Neutrophil % 60.4 50.0 - 75.0 % 04/15/2024 12:45 PM EDT [facility] Immature Grans % 0.3 0.0 - 0.9 % 04/15/2024 12:45 PM EDT [facility] Lymphocyte % 21.7 20.0 - 44.0 % 04/15/2024 12:45 PM EDT [facility] Monocyte % 12.0 0.0 - 14.0 % 04/15/2024 12:45 PM EDT [facility] Eosinophil % 5.1(H) 0.0 - 5.0 % 04/15/2024 12:45 PM EDT [facility] Basophil % 0.5 0.0 - 2.0 % 04/15/2024 12:45 PM EDT [facility] Neutrophil # 3.88 1.80 - 7.70 10*3/uL 04/15/2024 12:45 PM EDT [facility] Immature Grans # <0.03 0.00 - 0.03 10*3/uL 04/15/2024 12:45 PM EDT [facility] Lymphocyte # 1.40 1.00 - 4.75 10*3/uL 04/15/2024 12:45 PM EDT [facility] Monocyte # 0.80 0.00 - 6.00 10*3/uL 04/15/2024 12:45 PM EDT [facility] Eosinophil # 0.30 0.00 - 0.80 10*3/uL 04/15/2024 12:45 PM EDT [facility] Basophil # <0.03 0.00 - 0.20 10*3/uL 04/15/2024 12:45 PM EDT [facility] nRBC % 0.0 0 - 0 /100 WBCs 04/15/2024 12:45 PM EDT [facility] nRBC # <0.01 0.00 - 0.13 10*3/uL 04/15/2024 12:45 PM EDT [facility] Blood Structure of peripheral vein / Unknown Venipuncture / Unknown 04/15/2024 12:05 PM EDT 04/15/2024 12:05 PM EDT Salo Whyte MD LAB BLOOD ORDERABLES Final Result Performing Organization Address [facility] Co de Phone Number [facility] [address] [address], [place] [phone] * N-terminal ProBrain Natriuretic Peptide - [facility] & [facility]/[place] Only (04/15/2024 12:05 PM EDT) Pro-B-Type Natriuretic Peptide 457 <=1,800 pg/mL 04/15/2024 12:51 PM EDT [facility] Comment: RULE IN CHF >/= [...] BLOOD ORDERABLES Final Result Performing Organization Address [facility] Co de Phone Number [facility] [address] [address], [place] [phone] * (ABNORMAL) Comprehensive Metabolic Panel (04/15/2024 12:05 PM EDT) NA 140 136 - 145 mmol/L 04/15/2024 12:59 PM EDT [facility] K 4.1 3.5 - 5.1 mmol/L 04/15/2024 12:59 PM EDT [facility] Cl 97(L) 98 - 109 mmol/L 04/15/2024 12:59 PM EDT [facility] CO2 33(H) 22 - 32 mmol/L 04/15/2024 12:59 PM EDT [facility] Anion Gap 14 >=0 04/15/2024 12:59 PM EDT [facility] Glucose 94 60 - 99 mg/dL 04/15/2024 12:59 PM EDT [facility] Creatinine 1.13(H) 0.50 - 1.12 mg/dL 04/15/2024 12:59 PM EDT [facility] Calcium 9.5 8.4 - 10.4 mg/dL 04/15/2024 12:59 PM EDT [facility] Total Protein 6.6 6.6 - 8.7 g/dL 04/15/2024 12:59 PM EDT [facility] Albumin 3.1(L) 3.5 - 5.0 g/dL 04/15/2024 12:59 PM EDT [facility] Bilirubin, Total 0.3 0.2 - 1.2 mg/dL 04/15/2024 12:59 PM EDT [facility] Alkaline Phosphatase 105 40 - 129 U/L 04/15/2024 12:59 PM EDT [facility] AST 29 0 - 40 U/L 04/15/2024 12:59 PM T [facility] ALT 25 <=41 U/L 04/15/2024 12:59 PM T [facility] BUN 41(H) 8 - 23 mg/dL 04/15/2024 12:59 PM T [facility] eGFR 64 >=60 mL/min/1. 73m2 04/15/2024 12:59 PM T [facility] Comment:The estimated glomer ular filtration [...] - 4.2 g/dL 04/15/2024 12:59 PM EDT [facility] A/G Ratio 0.9(L) 1.5 - 3.0 04/15/2024 12:59 PM EDT [facility] Blood Structure of peripheral vein / Unknown Venipuncture / Unknown 04/15/2024 12:05 PM EDT 04/15/2024 12:05 PM EDT us Salo Whyte MD LAB BLOOD ORDERABLES Final Result [facility] [address] [facility] [address] [place] [address], documented in this encounter Visit Diagnoses Diagnosis Acute respiratory failure, unspecified whether with hypoxia or hypercapnia (HCC) No diagnosis documented in this encounter Additional Health Concerns Infection Onset Date Last Indicated Resolved Time 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
--- OUTSIDE RECORDS SUMMARY | 2024-11-14 14:07 | XMS_ITS | Patient Health Record ---
Author Organization [facility] Address [address] [place] [address] Care Team Providers Care Immunology Teacher Name Role Phone Zan, Demariorobb Primary Care Provider Louis Horne [phone] Allergies Allergen (clinical drug ingredient) Drug/Non Drug Allergy documented on EMR Reaction Allergy Type Onset Date Status hydromorphone Dilaudid Unknown Drug Allergy Act flaco some dyes in Motrin (uncoded) Unknown Allergy Active Reason For Referral No Information Medications Medication SIG (Take, Route, Frequency, Duration) Notes [...] as directed Orally twice a day Active Immunizations Vaccine Route Administration Date Status Comme nts Flu vaccine no Preserv 3 and > Unknown 05/15/2017 Admin istered Influenza Unknown 04/09/2018 Administered Problems Problem Type SNOMED Code ICD Code Onset Dates Problem Status W/U Status Risk Notes Problem 802635716 Bloating (R14.0) Active confirmed Problem 373909256 Chest discomfort (R07.89) Active confirmed Problem 596253249 Gastroesophageal reflux disease without esophagitis (K21.9) Active confirmed Problem 39464101 Other irritable bowel syndrome (K58.8) Active confirmed Problem 82272862 Hypertension, unspecified type (I10) Active confirmed Problem 873977675 Gastroesophageal reflux disease, unspecified whether esophagitis present (K21.9) Active confirmed Plan Of Treatment Pending Test Test Name Order Date XR GI SERIES 03/14/2018 Pathology 09/13/2021 Future Test Test Name Order Date UPPER GI ENDOSCOPY 08/06/2021 Insurance Providers Payer Name Payer Address Payer Phone Subscriber Number Group Number Insured Name Patient Relationship to Insured Coverage Start Date Coverage End Date MEDICARE OF [place] [address] [place] [address] [id number] RIZWANA ANDREW Self - patient is the insured [employer] ATT[employer] CLAIMS [address] [place] [address] [id number] RIZWANA ANDREW Self - patient is the insured Medical (General) History Medical History History ICD Code Nephrolithiasis Hyperlipidemia Denies ME,DM,CVA,Lung disease,renal dise ase Afib--2 unsuccessful ablatio n porcedures--sees Dr. Villalobos-cardiology at [facility]--s/p cardioversion 07/2021 at [facility] with Dr. Briones---he has had multiple cardioversions [...]
--- OUTSIDE RECORDS SUMMARY | 2024-11-14 14:07 | XMS_ITS | Referral Summary ---
Author Organization [facility] Address [address] [place] [address] Care Team Providers Care Ski Edge Painter Name Role Phone Uday Sheehan Primary Care Provider [phone] Allergies No known active allergies Medications acetaminophen [...] by mouth every 12 hours. 04/08/20 Active vnoeg-jxtu-DhOIE-c sglvj-mj-nvr (VIDHYA WITH COLLAGEN) 7-7-1.5 gram powder in [...] WBC of 7.4. - [facility] (percutaneous endoscopic gastrostomy) [...] consolidation LLL. O2 increased to 50% per SUPERVISOR MIXING: plugging secretions but not clogged at that [...] consolidation LLL. O2 increased to 50% per SUPERVISOR MIXING: plugging secretions but not clogged at that [...] Not on file Procedures * Due to [facility] law, [...] Health Maintenance Results * Due to [place] [employer] law, this organization might not be sharing [...] 12.0 - 15.0 % 05/27/2024 10:58 AM [facility] RDW Standard Deviation 54.3(H) 35.1 - 43.9 fL 05/27/2024 10:58 AM [facility] Platelets 147 140 - 440 10*3/uL 05/27/2024 10:58 AM [facility] MPV 10.1 9.4 - 12.4 fL 05/27/2024 10:58 AM [facility] Neutrophil % 57.4 50.0 - 75.0 % 05/27/2024 10:58 AM [facility] Immature Grans % 0.3 0.0 - 0.9 % 05/27/2024 10:58 AM [facility] Lymphocyte % 23.7 20.0 - 44.0 % 05/27/2024 10:58 AM [facility] Monocyte % 12.7 0.0 - 14.0 % 05/27/2024 10:58 AM [facility] Eosinophil % 5.6(H) 0.0 - 5.0 % 05/27/2024 10:58 AM [facility] Basophil % 0.3 0.0 - 2.0 % 05/27/2024 10:58 AM [facility] Neutrophil # 3.51 1.80 - 7.70 10*3/uL 05/27/2024 10:58 AM [facility] Immature Grans # <0.03 0.00 - 0.03 10*3/uL 05/27/2024 10:58 AM [facility] Lymphocyte # 1.50 1.00 - 4.75 10*3/uL 05/27/2024 10:58 AM [facility] Monocyte # 0.80 0.00 - 6.00 10*3/uL 05/27/2024 10:58 AM [facility] Eosinophil # 0.30 0.00 - 0.80 10*3/uL 05/27/2024 10:58 AM [facility] Basophil # <0.03 0.00 - [...] Whyte MD LAB BLOOD ORDERABLES Final Result [facility] [address] [facility] [address] [place] [address], [place] [phone] * (ABNORMAL) Comprehensive Metabolic Panel (05/27/2024 10:09 [...] - 10.4 mg/dL 05/27/2024 11:11 AM EST [facility] Total Protein 6.0(L) 6.6 [...] Final Result [facility] [address] [facility] [address] [place] [address], * Phosphorus (04/08/2024 5:21 AM EDT) Phosphorus 4.2 2.5 - 4.5 mg/dL 04/08/2024 5:46 AM EDT [facility] Blood Structure of peripheral vein / Unknown Venipuncture / Unknown 04/08/2024 5:21 AM EDT 04/08/2024 5:24 AM EDT Jori Longo NP LAB BLOOD ORDERABLES Fi nal Result [facility] [address] [place] [address], from Last 3 Months or Most Recently Relevant to Health Maintenance Additional Health Concerns Infection Onset Date Last Indicated Multidrug resistant organisms MRSA 03/25/2024 05/07/2024 Insurance [facility] MEDIC[facility] Advance Directives Documents on File Type Date Recorded Patient Vocational Rehab Consultant Expl anation Health Care Proxy 03/31/2024 10:53 [...] Atkinson Daughter Next of Kin Care Teams Ski Edge Painter Relationship Specialty Start Date End Date Uday Sheehan [address] [place] [address] dr Donna Thompson, ALEC [address] PCP - General Internal Medicine 03/27/24
--- OUTSIDE RECORDS SUMMARY | 2024-11-14 14:07 | XMS_ITS | Encounter Summary ---
Author Organization [facility] Address [address] [place] [address] Care Team Providers Care Proteomics Scientist Name Role Phone Uday Sheehan Primary Care Provider Encounter Details Date Type Department Care Team (Late st Contact Info) Description 05/21/2024 Orders Only [facility] Interventional Radiology [address] [place] [id number] Cedric Blank MD [address] [place] [address] Social History Tobacco Use Types Packs/Day Years [...] documented as of this encounter Care Teams Proteomics Scientist Relationship Specialty Start Date End Date Uday Sheehan [address] [place] [address] [place] [address] PCP - General Internal Medicine 03/27/24 documented as of this encounter
--- OUTSIDE RECORDS SUMMARY | 2024-11-14 14:07 | XMS_ITS | Encounter Summary ---
Author Organization [facility] Address [address] [place] [address] Care Team Providers Care Park Interpretive Specialist Name Role Phone Uday Sheehan Primary Care Provider [phone] Encounter Details Date Type Department Care Team (Late st Contact Info) Description 05/28/2024 Lab Requisition [facility] [address] [place] [address] Valarie Pierson MD [address] [place] [address] Acute and chronic respiratory failure with hypoxia; [...] encounter Procedures * Due to [place] [employer] law, this organization might not be sharing negative HIV tests. Procedure Name Priority Date/Time Associated Diagnosis Comments TROPONIN T HIGH SENSITIVITY Routine 05/28/2024 2:28 PM EST Acute and chronic respiratory failure with hypoxia (HCC) No diagnosis documented in this encounter Results * Due to [place] [employer] law, this organization might not be sharing negative HIV tests. * (ABNORMAL) Troponin T, High Sensitivity (05/28/2024 2:28 PM EST) Troponin T High Sensitivity 35(H) 6 - 22 ng/L 05/28/2024 3:30 PM EST [facility] Comment: Mz-Pkrsyhqp-B level of 52 ng/L or higher at [...] be evaluated in line with the 4th [place] Definition of AMI. 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
--- OUTSIDE RECORDS SUMMARY | 2024-11-14 14:07 | XMS_ITS | Encounter Summary ---
Author Organization [facility] Address [address] [place] [address] Care Team Providers Care Printed Circuit Board Panels Developer Name Role Phone Uday Sheehan Primary Care Provider [phone] Encounter Details Date Type Department Care Team (Late st Contact Info) Description 05/28/2024 Lab Requisition [facility] Lab Department [address] [place] [address] Lidia Barry, CB [address] [place] [address] Acute and chronic respiratory failure with hypoxia; [...] this encounter Procedures * Due to [place] Gym[employer] law, this organization might not be sharing negative HIV tests. Procedure Name Priority Date/Time Associated Diagnosis Comments TROPONIN T HIGH SENSITIVITY Routine 05/28/2024 8:45 PM EST Acute and chronic respiratory failure with hypoxia (HCC) No diagnosis documented in this encounter Results * Due to [place] [employer] law, this organization might not be sharing negative HIV tests. * (ABNORMAL) Troponin T, High Sensitivity (05/28/2024 8:45 PM EST) Troponin T High Sensitivity 35(H) 6 - 22 ng/L 05/28/2024 9:[address] [facility] Comment: Fj-Rasdoezs-B level of 52 ng/L or higher at [...] be evaluated in line with the 4th [place] Definition of AMI. Troponin baseline and serial [...] Barry LAB BLOOD ORDERABLES Final R esult 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
--- OUTSIDE RECORDS SUMMARY | 2024-11-14 14:07 | XMS_ITS | Encounter Summary ---
Author Organization [facility] Address [address] [place] [address] Care Team Providers Care Traffic Lieutenant Name Role Phone Uday Sheehan Primary Care Provider [phone] Encounter Details Date Type Department Care Team (Late st Contact Info) Description 05/23/[address] [facility] [address] [place] [address] Lidia Barry, CB [address] [place] [address] Acute and chronic respiratory failure with hypoxia; [...] of this encounter Procedures * Due to [place] state law, this organization might not be [...] in this encounter Results * Due to [place] state law, this organization might not be sharing negative HIV tests. * (ABNORMAL) Sedimentation Rate (05/23/2024 9:28 AM EST) Sed Rate 77(H) 0 - 19 mm/Hr 05/23/2024 10:52 AM EST [facility] Blood Structure of peripheral vein / Unknown Venipuncture / Unknown 05/23/2024 9:28 AM EST 05/23/2024 10:40 AM EST [facility] INSTRUMENT ROOM TECHNICIAN LAB BLOOD ORDERABLES Final R esult Performing Organization Address City/State/[facility] Co de Phone Number [facility] [address] [place] [address] [address] [place] [address], [place] [phone] * (ABNORMAL) CBC Auto Differential (05/23/2024 9:28 AM EST) WBC 7.1 4.8 - 10.8 10*3/uL 05/23/2024 10:51 AM EST [facility] RBC 3.05(L) 4.70 - 6.10 10*6/uL 05/23/2024 10:51 AM EST [facility] Hemoglobin 8.5(L) 13.7 - 16.5 g/dL 05/23/2024 10:51 AM EST [facility] Hematocrit 26.6(L) 40.5 - 48.5 % 05/23/2024 10:51 AM EST [facility] MCV 87.2 80.0 - 94.0 fL 05/23/2024 10:51 AM EST [facility] MCH 27.9 26.0 - 34.0 pg 05/23/2024 10:51 AM EST [facility] MCHC 32.0 31.0 - 36.0 g/dL 05/23/2024 10:51 AM [facility] RDW 16.9(H) 12.0 - 15.0 % 05/23/2024 10:51 AM [facility] RDW Standard Deviation 54.4(H) 35.1 - 43.9 fL 05/23/2024 10:51 AM [facility] Platelets 136(L) 140 - 440 10*3/uL 05/23/2024 10:51 AM [facility] MPV 10.1 9.4 - 12.4 fL 05/23/2024 10:51 AM [facility] Neutrophil % 60.6 50.0 - 75.0 % 05/23/2024 10:51 AM [facility] Immature Grans % 0.3 0.0 - 0.9 % 05/23/2024 10:51 AM [facility] Lymphocyte % 21.6 20.0 - 44.0 % 05/23/2024 10:51 AM [facility] Monocyte % 12.6 0.0 - 14.0 % 05/23/2024 10:51 AM [facility] Eosinophil % 4.3 0.0 - 5.0 % 05/23/2024 10:51 AM EST [facility] Basophil % 0.6 0.0 - 2.0 % 05/23/2024 10:51 AM [facility] Neutrophil # 4.33 1.80 - 7.70 10*3/uL 05/23/2024 10:51 AM [facility] Immature Grans # <0.03 0.00 - 0.03 10*3/uL 05/23/2024 10:51 AM [facility] Lymphocyte # 1.50 1.00 - 4.75 10*3/uL 05/23/2024 10:51 AM EST [facility] Monocyte # 0.90 0.00 - 6.00 10*3/uL 05/23/2024 10:51 AM EST [facility] Eosinophil # 0.30 0.00 - 0.80 10*3/uL 05/23/2024 10:51 AM EST [facility] Basophil # <0.03 0.00 - 0.20 10*3/uL 05/23/2024 10:51 AM EST [facility] nRBC % 0.0 0 - 0 /100 WBCs 05/23/2024 10:51 AM EST [facility] nRBC # <0.01 0.00 - 0.13 10*3/uL 05/23/2024 10:51 AM EST [facility] Blood Structure of peripheral vein / Unknown Venipuncture / Unknown 05/23/2024 9:28 AM EST 05/23/2024 10:40 AM EST [facility] LAB BLOOD ORDERABLES Final R esult Performing Organization Address City/[facility]/ZIP Co de Phone Number [facility] [address] [address], [place] [phone] * (ABNORMAL) C-Reactive Protein (05/23/2024 9:28 AM EST) [facility] C Reactive Protein 12.4(H) <=10.0 mg/L 05/23/2024 11:08 AM EST [facility] Blood Structure of peripheral vein / Unknown Venipuncture / Unknown 05/23/2024 9:28 AM EST 05/23/2024 10:40 AM EST [facility] INSTRUMENT ROOM TECHNICIAN LAB BLOOD ORDERABLES Final R [facility] Performing Organization Address City/[facility] Co de Phone Number [facility] [address] [address], [place] [phone] * (ABNORMAL) Comprehensive Metabolic Panel (05/23/2024 9:28 AM EST) Pathologist [facility] NA 142 136 - 145 mmol/L 05/23/2024 11:08 AM [facility] K 3.9 3.5 - 5.1 mmol/L 05/23/2024 11:08 AM [facility] Cl 104 98 - 109 mmol/L 05/23/2024 11:08 AM [facility] CO2 27 22 - 32 mmol/L 05/23/2024 11:08 AM [facility] Anion Gap 15 >=0 05/23/2024 11:08 AM [facility] Glucose 102(H) 60 - 99 mg/dL 05/23/2024 11:08 AM [facility] Creatinine 1.65(H) 0.50 - 1.12 mg/dL 05/23/2024 11:08 AM [facility] Calcium 9.1 8.4 - 10.4 mg/dL 05/23/2024 11:08 AM [facility] Total Protein 6.2(L) 6.6 - 8.7 g/dL 05/23/2024 11:08 AM [facility] Albumin 3.1(L) 3.5 - 5.0 g/dL 05/23/2024 11:08 AM [facility] Bilirubin, Total 0.2 0.2 - 1.2 mg/dL 05/23/2024 11:08 AM [facility] Alkaline Phosphatase 117 40 - 129 U/L 05/23/2024 11:08 AM [facility] AST 23 0 - 40 U/L 05/23/2024 11:08 AM [facility] ALT 14 <=41 U/L 05/23/2024 11:08 AM [facility] BUN 39(H) 8 - 23 mg/dL 05/23/2024 11:08 AM [facility] eGFR 41(L) >=60 mL/min/1. 73m2 05/23/2024 11:08 AM [facility] Comment:The estimated glomer ular filtration rate [...] - 4.2 g/dL 05/23/2024 11:08 AM EST [facility] A/G Ratio 1.0(L) 1.5 - 3.0 05/23/2024 11:08 AM EST [facility] Blood Structure of peripheral vein / Unknown Venipuncture / Unknown 05/23/2024 9:28 AM EST 05/23/2024 10:40 AM EST [facility] BLOOD ORDERABLES Final R esult Performing Organization Address City/State/[facility] Co de Phone Number [facility] [address] [facility] [address] [place] [address], documented in this encounter Visit Diagnoses Diagnosis Acute and chronic respiratory failure with hypoxia (HCC) No diagnosis documented in this encounter Additional Health Concerns Infection Onset Date Last Indicated Resolved Time 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
--- OUTSIDE RECORDS SUMMARY | 2024-11-14 14:07 | XMS_ITS | Encounter Summary ---
Author Organization [facility] Address [address] [place] [address] Care Team Providers Care Manager Automotive Name Role Phone Uday Sheehan MD Primary Care Provider [phone] Encounter Details Date Type Department Care Team (Late st Contact Info) Description 11/09/2024 Lab Requisition [facility] - Main Lab [address] [place] [address] Tabby Bledsoe MD [address] [address] Bacteremia Social History Tobacco Use Types Packs/Day [...] Associated Diagnosis Comments COMPLETE BLOOD COUNT Routine 11/11/2024 11:28 AM EDT Bacteremia COMPREHENSIVE METABOLIC PANEL Routine 11/11/2024 11:28 AM EDT Bacteremia documented in this encounter Results * (ABNORMAL) Comprehensive metabolic panel (11/11/2024 11:28 AM EDT) Sodium 143 133 - 145 mmol/L LAB CHEMISTRY METHOD 11/11/2024 2:44 PM EDT [facility] Potassium 4.3 3.5 - 5.5 mmol/L LAB CHEMISTRY METHOD 11/11/2024 2:44 PM [facility] Chloride 108 96 - 110 mmol/L LAB CHEMISTRY METHOD 11/11/2024 2:44 PM [facility] CO2 28 21 - 32 mmol/L LAB CHEMISTRY METHOD 11/11/2024 2:44 PM [facility] Anion Gap 7 3 - 11 LAB CHEMISTRY METHOD 11/11/2024 2:44 PM [facility] Glucose 125(H) 70 - 100 mg/dL LAB CHEMISTRY METHOD 11/11/2024 2:44 PM [facility] BUN 29(H) 5 - 25 mg/dL LAB CHEMISTRY METHOD 11/11/2024 2:44 PM [facility] Creatinine 1.27 0.70 - 1.30 mg/dL LAB CHEMISTRY METHOD 11/11/2024 2:44 PM [facility] eGFR 56(L) >=60 mL/min/1. 73m2 LAB CHEMISTRY METHOD 11/11/2024 2:44 PM [facility] Comment:Calculation based on the??Chronic Kidney Disease Epidemiology Collaboration (CKD-EPI) equation refit??without adjustment for race. BUN/Creatinine Ratio 22.8 LAB CHEMISTRY METHOD 11/11/2024 2:44 PM [facility] Calcium 8.1(L) 8.5 - 10.5 mg/dL LAB CHEMISTRY METHOD 11/11/2024 2:44 PM [facility] AST (SGOT) 41 10 - 42 unit/L LAB CHEMISTRY METHOD 11/11/2024 2:44 PM [facility] ALT (SGPT) 45 10 - 60 unit/L LAB CHEMISTRY METHOD 11/11/2024 2:44 PM [facility] Alkaline Phosphatase 94 42 - 121 unit/L LAB CHEMISTRY METHOD 11/11/2024 2:44 PM [facility] Total Protein 5.2(L) 6.0 - 8.0 g/dL LAB CHEMISTRY METHOD 11/11/2024 2:44 PM EDT [facility] Albumin 1.2(L) 3.2 - 5.0 g/dL LAB CHEMISTRY METHOD 11/11/2024 2:44 PM EDT [facility] Total Bilirubin 0.3 0.0 - 1.4 mg/dL LAB CHEMISTRY METHOD 11/11/2024 2:44 PM EDT [facility] Blood Venous blood specimen / Unknown Venipuncture / Unknown 11/11/2024 11:28 AM EDT 11/11/2024 12:52 PM EDT us Tabby Bledsoe MD LAB BLOOD ORDERABLES Fin al Result [facility] [address] [place] [address], * (ABNORMAL) Complete blood count (11/11/2024 11:28 AM EDT) WBC 6.2 4.8 - 10.8 K/mcL LAB HEMETOLOGY METHOD 11/11/2024 1:40 PM EDT [facility] RBC 2.50(L) 4.50 - 5.50 M/mcL LAB HEMETOLOGY METHOD 11/11/2024 1:40 PM [facility] Hemoglobin 6.7(L) 13.5 - 17.5 g/dL LAB HEMETOLOGY METHOD 11/11/2024 1:40 PM EDT [facility] Hematocrit 22.8(L) 42.0 - 54.0 % LAB HEMETOLOGY METHOD 11/11/2024 1:40 PM EDT [facility] MCV 91.9 79.0 - 98.0 FL LAB HEMETOLOGY METHOD [facility] MCH 27.0 27.0 - 32.0 pcg LAB HEMETOLOGY METHOD 11/11/2024 1:40 PM EDT [facility] MCHC 29.4(L) 32.0 - 37.0 g/dL LAB HEMETOLOGY METHOD 11/11/2024 1:40 PM EDT [facility] RDW 17.9(H) 11.0 - 15.0 % LAB HEMETOLOGY METHOD 11/11/2024 1:40 PM EDT [facility] Platelets 268 130 - 400 K/mcL LAB HEMETOLOGY METHOD 11/11/2024 1:40 PM EDT [facility] MPV 9.3 7.0 - 11.0 FL LAB HEMETOLOGY METHOD 11/11/2024 1:40 PM EDT [facility] NRBC 0.0 <1.0 % LAB HEMETOLOGY METHOD 11/11/2024 1:40 PM EDT [facility] NRBC Absolute 0.00 <0.10 K/mcL LAB HEMETOLOGY METHOD 11/11/2024 1:40 PM EDT [facility] Blood Venous blood specimen / Unknown Venipuncture / Unknown 11/11/2024 11:28 AM EDT 11/11/2024 12:52 PM EDT us Tabby Bledsoe MD LAB BLOOD ORDERABLES Fin al Result [facility] [address] [place] [address], documented in this encounter Visit Diagnoses Diagnosis Bacteremia documented in this encounter Additional Health Concerns Infection Onset Date Last Indicated Resolved Time ESBL 06/22/2024 06/22/2024 documented as of this encounter Care Teams Manager Automotive Relationship Specialty Start Date End Date Uday Sheehan MD [address] [place] [address] Dr [place] PCP - General [employer] Construction Worker 12/19/16 documented as of this encounter
--- OUTSIDE RECORDS SUMMARY | 2024-11-14 14:07 | XMS_ITS | Encounter Summary ---
Author Organization [facility] Address [address] [place] [address] Care Team Providers Care Casting Operator Name Role Phone Uday Sheehan MD Primary Care Provider [phone] Encounter Details Date Type Department Care Team (Late st Contact Info) Description 07/12/2024 Lab Requisition [facility] - Main Lab [address] [facility] [place] [address] Tabby Bledsoe MD [address] [address] Bacteremia Social History Tobacco Use Types Packs/Day [...] documented as of this encounter Care Teams Casting Operator Relationship Specialty Start Date End Date Uday Sheehan MD [address] [place] [address] PCP - General Church Official 12/19/16 documented as of this encounter
--- OUTSIDE RECORDS SUMMARY | 2024-11-14 14:07 | XMS_ITS | Encounter Summary ---
Author Organization [facility] Address [address] [place] [address] Care Team Providers Care Legal Mediator Name Role Phone Uday Sheehan Primary Care Provider [phone] Encounter Details Date Type Department Care Team (Late st Contact Info) Description 04/22/2024 Lab Requisition [facility] [address] [place] [address] Salo Whyte MD [address] [place] [address] Acute and chronic respiratory failure with hypoxia; [...] - 4.200 uIU/mL 04/22/2024 10:11 AM EDT [facility] Blood Structure of peripheral vein / Unknown 04/22/2024 9:32 AM EDT 04/22/2024 9:33 AM EDT us Salo Whyte MD LAB BLOOD ORDERABLES Final Result Performing Organization Address City/State/[facility] Co de Phone Number [facility] [address] [place] [address] [address] [place] [address], [place] [phone] * T4, Free (04/22/2024 9:32 AM EDT) Free T4 1.25 0.80 - 1.80 ng/dL 04/22/2024 10:11 AM EDT [facility] Comment: Females: (ng/dL) First Trimester ? [...] AM EDT 04/22/2024 9:33 AM EDT Salo Whyet MD LAB BLOOD ORDERABLES Final Result [facility] [address] [place] [address] [address] [place] [address], [place] [phone] * (ABNORMAL) CBC Auto Differential (04/22/2024 9:32 AM EDT) WBC 5.8 4.8 - 10.8 10*3/uL 04/22/2024 9:53 AM EDT [facility] RBC 2.96(L) 4.70 - 6.10 10*6/uL 04/22/2024 9:53 AM EDT [facility] Hemoglobin 8.2(L) 13.7 - 16.5 g/dL 04/22/2024 9:53 AM EDT [facility] Hematocrit 25.7(L) 40.5 - 48.5 % 04/22/2024 9:53 AM EDT [facility] MCV 86.8 80.0 - 94.0 fL 04/22/2024 9:53 AM EDT [facility] MCH 27.7 26.0 - 34.0 pg 04/22/2024 9:53 AM EDT [facility] MCHC 31.9 31.0 - 36.0 g/dL 04/22/2024 9:53 AM EDT [facility] RDW 16.4(H) 12.0 - 15.0 % 04/22/2024 9:53 AM EDT [facility] RDW Standard Deviation 52.1(H) 35.1 - 43.9 fL 04/22/2024 9:53 AM EDT [facility] Platelets 182 140 - 440 10*3/uL 04/22/2024 9:53 AM EDT [facility] MPV 10.8 9.4 - 12.4 fL 04/22/2024 9:53 AM EDT [facility] Neutrophil % 57.5 50.0 - 75.0 % 04/22/2024 9:53 AM EDT [facility] Immature Grans % 0.2 0.0 - 0.9 % 04/22/2024 9:53 AM EDT [facility] Lymphocyte % 21.1 20.0 - 44.0 % 04/22/2024 9:53 AM EDT [facility] Monocyte % 15.7(H) 0.0 - 14.0 % 04/22/2024 9:53 AM EDT [facility] Eosinophil % 5.0 0.0 - 5.0 % 04/22/2024 9:53 AM EDT [facility] Basophil % 0.5 0.0 - 2.0 % 04/22/2024 9:53 AM EDT [facility] Neutrophil # 3.32 1.80 - 7.70 10*3/uL 04/22/2024 9:53 AM EDT [facility] Immature Grans # <0.03 0.00 - 0.03 10*3/uL 04/22/2024 9:53 AM EDT [facility] Lymphocyte # 1.20 1.00 - 4.75 10*3/uL 04/22/2024 9:53 AM EDT [facility] Monocyte # 0.90 0.00 - 6.00 10*3/uL 04/22/2024 9:53 AM EDT [facility] Eosinophil # 0.30 0.00 - 0.80 10*3/uL 04/22/2024 9:53 AM EDT [facility] Basophil # <0.03 0.00 - 0.20 10*3/uL 04/22/2024 9:53 AM EDT [facility] nRBC % 0.0 0 - 0 /100 WBCs 04/22/2024 9:53 AM EDT [facility] nRBC # <0.01 0.00 - 0.13 10*3/uL 04/22/2024 9:53 AM EDT [facility] Blood Structure of peripheral vein / Unknown 04/22/2024 9:32 AM EDT 04/22/2024 9:33 AM EDT Salo Whyte MD LAB BLOOD ORDERABLES Final Result Performing Organization Address [facility] Co de Phone Number [facility] [address] [address], [place] [phone] * N-terminal ProBrain Natriuretic Peptide - [facility] & [facility]/Forrest Only (04/22/2024 9:32 AM EDT) Pro-B-Type Natriuretic Peptide 435 <=1,800 pg/mL 04/22/2024 10:42 AM EDT [facility] Comment: RULE IN CHF >/= [...] BLOOD ORDERABLES Final Result Performing Organization Address [facility]/ZIP Co de Phone Number [facility] [address] [address], [place] [phone] * (ABNORMAL) Comprehensive Metabolic Panel (04/22/2024 9:32 AM EDT) NA 139 136 - 145 mmol/L 04/22/2024 10:11 AM EDT [facility] K 3.9 3.5 - 5.1 mmol/L 04/22/2024 10:11 AM EDT [facility] Cl 96(L) 98 - 109 mmol/L 04/22/2024 10:11 AM EDT [facility] CO2 33(H) 22 - 32 mmol/L 04/22/2024 10:11 AM EDT [facility] Anion Gap 14 >=0 04/22/2024 10:11 AM [facility] Glucose 98 60 - 99 mg/dL 04/22/2024 10:11 AM EDT [facility] Creatinine 1.43(H) 0.50 - 1.12 mg/dL 04/22/2024 10:11 AM EDT [facility] Calcium 9.9 8.4 - 10.4 mg/dL 04/22/2024 10:11 AM [facility] Total Protein 6.3(L) 6.6 - 8.7 g/dL 04/22/2024 10:11 AM [facility] Albumin 3.0(L) 3.5 - 5.0 g/dL 04/22/2024 10:[facility] Bilirubin, Total 0.4 0.2 - 1.2 mg/dL 04/22/2024 10:11 AM T [facility] Alkaline Phosphatase 106 40 - 129 U/L 04/22/2024 10:11 [facility] AST 34 0 - 40 U/L 04/22/2024 10:11 AM [facility] ALT 30 <=41 U/L 04/22/2024 10:11 AM T [facility] BUN 50(H) 8 - 23 mg/dL 04/22/2024 10:11 AM [facility] eGFR 48(L) >=60 mL/min/1. 73m2 04/22/2024 10:11 AM T [facility] Comment:The estimated glomer [...] - 4.2 g/dL 04/22/2024 10:11 AM EDT [facility] A/G Ratio 0.9(L) 1.5 - 3.0 04/22/2024 10:11 AM EDT [facility] Blood Structure of peripheral vein / Unknown 04/22/2024 9:32 AM EDT 04/22/2024 9:33 AM EDT Salo Whyte MD LAB BLOOD ORDERABLES Final Result Performing Organization Address City/State/[facility] Co de Phone Number [facility] [address] [place] [address] [address] [place] [address], documented in this encounter Visit Diagnoses Diagnosis Acute and chronic respiratory failure with hypoxia (HCC) No diagnosis documented in this encounter Additional Health Concerns Infection Onset Date Last Indicated Resolved Time 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
--- OUTSIDE RECORDS SUMMARY | 2024-11-14 14:07 | XMS_ITS | Encounter Summary ---
Author Organization [facility] Address [address] [place] [address] Care Team Providers Care Laborer Wrecking And Salvaging Name Role Phone Uday Sheehan MD Primary Care Provider [phone] Encounter Details Date Type Department Care Team (Late st Contact Info) Description 06/15/[address] [facility] - Main Lab [address] [facility] [place] [address] Zak Zuluaga MD [address] [place], [place] [id number] Unspecified atrial fibrillation (CMS/HCC V24, CMS/HCC V28); [...] mmol/L LAB CHEMISTRY METHOD 06/17/2024 10:19 AM [facility] Potassium 4.7 3.5 - 5.5 mmol/L LAB CHEMISTRY METHOD 06/17/2024 10:19 AM [facility] Chloride 113(H) 96 - 110 mmol/L LAB CHEMISTRY METHOD 06/17/2024 10:19 AM [facility] CO2 24 21 - 32 mmol/L LAB CHEMISTRY METHOD 06/17/2024 10:19 AM [facility] Anion Gap 8 3 - 11 LAB CHEMISTRY METHOD 06/17/2024 10:19 AM [facility] Glucose 86 70 - 100 mg/dL LAB CHEMISTRY METHOD 06/17/2024 10:19 AM [facility] BUN 41(H) 5 - 25 mg/dL LAB CHEMISTRY METHOD 06/17/2024 10:19 AM [facility] Creatinine 2.95(H) 0.70 - 1.30 mg/dL LAB CHEMISTRY METHOD 06/17/2024 10:19 AM [facility] eGFR 20(L) >=60 mL/min/1. 73m2 LAB CHEMISTRY METHOD 06/17/2024 10:19 AM [facility] Comment:Calculation based on the??Chronic Kidney Disease Epidemiology Collaboration (CKD-EPI) equation refit??without adjustment for race. BUN/Creatinine Ratio 13.9 LAB CHEMISTRY METHOD 06/17/2024 10:19 AM [facility] Calcium 8.5 8.5 - 10.5 mg/dL LAB CHEMISTRY METHOD 06/17/2024 10:19 AM [facility] AST (SGOT) 50(H) 10 - 42 unit/L LAB CHEMISTRY METHOD 06/17/2024 10:19 AM [facility] ALT (SGPT) 59 10 - 60 unit/L LAB CHEMISTRY METHOD 06/17/2024 10:19 AM [facility] Alkaline Phosphatase 99 42 - 121 unit/L LAB CHEMISTRY METHOD 06/17/2024 10:19 AM [facility] Total Protein 5.9(L) 6.0 - 8.0 g/dL LAB CHEMISTRY METHOD 06/17/2024 10:19 AM [facility] Albumin 1.7(L) 3.2 - 5.0 g/dL LAB CHEMISTRY METHOD 06/17/2024 10:19 AM [facility] Total Bilirubin 0.6 0.0 - 1.4 mg/dL LAB CHEMISTRY METHOD 06/17/2024 10:19 AM [facility] Blood Venous blood specimen / Unknown Venipuncture / Unknown 06/17/2024 6:45 AM EST 06/17/2024 9:11 AM EST us Zak Zuluaga MD LAB BLOOD ORDERABLES Final Resul t [facility] [address] [place] [address], * (ABNORMAL) Complete blood count (06/17/2024 6:45 AM EST) WBC 8.6 4.8 - 10.8 K/mcL LAB HEMETOLOGY METHOD 06/17/2024 9:49 AM [facility] RBC 3.00(L) 4.50 - 5.50 M/mcL LAB HEMETOLOGY METHOD 06/17/2024 9:49 AM [facility] Hemoglobin 7.9(L) 13.5 - 17.5 g/dL LAB HEMETOLOGY METHOD 06/17/2024 9:49 AM [facility] Hematocrit 26.5(L) 42.0 - 54.0 % LAB HEMETOLOGY METHOD 06/17/2024 9:49 AM [facility] MCV 88.9 79.0 - 98.0 FL LAB HEMETOLOGY METHOD 06/17/2024 9:49 AM [facility] MCH 26.5(L) 27.0 - 32.0 pcg LAB HEMETOLOGY METHOD 06/17/2024 9:49 AM EST [facility] MCHC 29.8(L) 32.0 - 37.0 g/dL LAB HEMETOLOGY METHOD 06/17/2024 9:49 AM EST [facility] RDW 16.9(H) 11.0 - 15.0 % LAB HEMETOLOGY METHOD 06/17/2024 9:49 AM EST [facility] Platelets 284 130 - 400 K/mcL LAB HEMETOLOGY METHOD 06/17/2024 9:49 AM EST [facility] MPV 9.6 7.0 - 11.0 FL LAB HEMETOLOGY METHOD 06/17/2024 9:49 AM [facility] NRBC 0.0 <1.0 % LAB HEMETOLOGY METHOD 06/17/2024 9:49 AM EST [facility] NRBC Absolute 0.00 <0.10 K/mcL LAB HEMETOLOGY METHOD 06/17/2024 9:49 AM [facility] Blood Venous blood specimen / Unknown Venipuncture / Unknown 06/17/2024 6:45 AM EST 06/17/2024 9:18 AM EST us Zak Zuluaga MD LAB BLOOD ORDERABLES Final Resul t [facility] [address] [place] [address], documented in this encounter Visit Diagnoses Diagnosis Unspecified atrial fibrillation (CMS/HCC V24, CMS/HCC V28) Essential (primary) hypertension Unspecified essential hypertension documented in this encounter Additional Health Concerns Infection Onset Date Last Indicated Resolved Time ESBL 06/22/2024 06/22/2024 documented as of this encounter Care Teams Laborer Wrecking And Salvaging Relationship Specialty Start Date End Date Uday Sheehan MD [address] [place] [address] Dr Donna [place] PCP - General Pearl Cutter 12/19/16 documented as of this encounter
--- OUTSIDE RECORDS SUMMARY | 2024-11-14 14:07 | XMS_ITS | Encounter Summary ---
Author Organization [facility] Address [address] [place] [address] Care Team Providers Care Integration Director Name Role Phone Uday Sheehan MD Primary Care Provider [phone] Encounter Details Date Type Department Care Team (Late st Contact Info) Description 07/11/2024 Lab Requisition [facility] - Main Lab [address] [place] [address] Tabby Bledsoe MD [address] [address] Acute kidney failure, unspecified (CMS/HCC V24) Social [...] LAB CHEMISTRY METHOD 07/11/2024 11:14 AM EST [facility] Potassium 4.1 3.5 - 5.5 mmol/L LAB CHEMISTRY METHOD 07/11/2024 11:14 AM [facility] Chloride 113(H) 96 - 110 mmol/L LAB CHEMISTRY METHOD 07/11/2024 11:14 AM [facility] CO2 31 21 - 32 mmol/L LAB CHEMISTRY METHOD 07/11/2024 11:14 AM [facility] Anion Gap 3 3 - 11 LAB CHEMISTRY METHOD 07/11/2024 11:14 AM [facility] Glucose 100 70 - 100 mg/dL LAB CHEMISTRY METHOD 07/11/2024 11:14 AM [facility] BUN 29(H) 5 - 25 mg/dL LAB CHEMISTRY METHOD 07/11/2024 11:14 AM [facility] Creatinine 1.31(H) 0.70 - 1.30 mg/dL LAB CHEMISTRY METHOD 07/11/2024 11:14 AM [facility] eGFR 54(L) >=60 mL/min/1. 73m2 LAB CHEMISTRY METHOD 07/11/2024 11:14 AM [facility] Comment:Calculation based on the??Chronic Kidney Disease Epidemiology Collaboration (CKD-EPI) equation refit??without adjustment for race. BUN/Creatinine Ratio 22.1 LAB CHEMISTRY METHOD 07/11/2024 11:14 AM [facility] Calcium 10.3 8.5 - 10.5 mg/dL LAB CHEMISTRY METHOD 07/11/2024 11:14 AM [facility] AST (SGOT) 36 10 - 42 unit/L LAB CHEMISTRY METHOD 07/11/2024 11:14 AM [facility] ALT (SGPT) 23 10 - 60 unit/L LAB CHEMISTRY METHOD 07/11/2024 11:14 AM [facility] Alkaline Phosphatase 127(H) 42 - 121 unit/L LAB CHEMISTRY METHOD 07/11/2024 11:14 AM EST [facility] Total Protein 5.8(L) 6.0 - 8.0 g/dL LAB CHEMISTRY METHOD 07/11/2024 11:14 AM [facility] Albumin 1.6(L) 3.2 - 5.0 g/dL LAB CHEMISTRY METHOD 07/11/2024 11:14 AM [facility] Total Bilirubin 0.4 0.0 - 1.4 mg/dL LAB CHEMISTRY METHOD 07/11/2024 11:14 AM [facility] Blood Venous blood specimen / Unknown Venipuncture / Unknown 07/11/2024 5:17 AM EST 07/11/2024 10:02 AM EST us Tabby Bledsoe MD LAB BLOOD ORDERABLES Fin al Result [facility] [address] [place] [address], * (ABNORMAL) Complete blood count (07/11/2024 5:17 AM EST) WBC 6.4 4.8 - 10.8 K/mcL LAB HEMETOLOGY METHOD 07/11/2024 10:30 AM [facility] RBC 2.80(L) 4.50 - 5.50 M/mcL LAB HEMETOLOGY METHOD 07/11/2024 10:30 AM [facility] Hemoglobin 7.3(L) 13.5 - 17.5 g/dL LAB HEMETOLOGY METHOD 07/11/2024 10:30 AM [facility] Hematocrit 24.5(L) 42.0 - 54.0 % LAB HEMETOLOGY METHOD 07/11/2024 10:30 AM [facility] MCV 87.8 79.0 - 98.0 FL LAB HEMETOLOGY METHOD 07/11/2024 10:30 AM [facility] MCH 26.2(L) 27.0 - 32.0 pcg LAB HEMETOLOGY METHOD 07/11/2024 10:30 AM EST [facility] MCHC 29.8(L) 32.0 - 37.0 g/dL LAB HEMETOLOGY METHOD 07/11/2024 10:30 AM [facility] RDW 19.2(H) 11.0 - 15.0 % LAB HEMETOLOGY METHOD 07/11/2024 10:30 AM EST [facility] Platelets 210 130 - 400 K/mcL LAB HEMETOLOGY METHOD 07/11/2024 10:30 AM [facility] MPV 10.2 7.0 - 11.0 FL LAB HEMETOLOGY METHOD 07/11/2024 10:30 AM [facility] NRBC 0.0 <1.0 % LAB HEMETOLOGY METHOD 07/11/2024 10:30 AM [facility] NRBC Absolute 0.00 <0.10 K/mcL LAB HEMETOLOGY METHOD 07/11/2024 10:30 AM [facility] Blood Venous blood specimen / Unknown Venipuncture / Unknown 07/11/2024 5:17 AM EST 07/11/2024 10:02 AM EST us Tabby Bledsoe MD LAB BLOOD ORDERABLES Fin al Result [facility] [address] [place] [address], documented in this encounter Visit Diagnoses Diagnosis Acute kidney failure, unspecified (CMS/HCC V24) Acute kidney failure, unspecified documented in this encounter Additional Health Concerns Infection Onset Date Last Indicated Resolved Time ESBL 06/22/2024 06/22/2024 documented as of this encounter Care Teams Integration Director Relationship Specialty Start Date End Date Uday Sheehan MD [address] [facility] [address] Donna [place] PCP - General Spray Drier Operator Helper 12/19/16 documented as of this encounter
--- OUTSIDE RECORDS SUMMARY | 2024-11-14 14:07 | XMS_ITS | Encounter Summary ---
Author Organization [facility] Address [address] [place] [address] Care Team Providers Care Financial Assistance Advisor Name Role Phone Uday Sheehan MD Primary Care Provider [phone] Encounter Details Date Type Department Care Team (Late st Contact Info) Description 06/21/2024 Lab Requisition [facility] - Main Lab [address] [place] [address] Zak Zuluaga MD [address] [place] [address] Unspecified kidney failure; COVID-19 Social History Tobacco [...] LAB CHEMISTRY METHOD 06/21/2024 11:[address] [facility] Potassium 4.3 3.5 - 5.5 mmol/L LAB CHEMISTRY METHOD 06/21/2024 11:[address] [facility] Chloride 114(H) 96 - 110 mmol/L LAB CHEMISTRY METHOD 06/21/2024 11:17 AM [facility] CO2 23 21 - 32 mmol/L LAB CHEMISTRY METHOD 06/21/2024 11:17 AM [facility] Anion Gap 10 3 - 11 LAB CHEMISTRY METHOD 06/21/2024 11:17 AM [facility] Glucose 90 70 - 100 mg/dL LAB CHEMISTRY METHOD 06/21/2024 11:17 AM [facility] BUN 65(H) 5 - 25 mg/dL LAB CHEMISTRY METHOD 06/21/2024 11:17 AM [facility] Creatinine 3.53(H) 0.70 - 1.30 mg/dL LAB CHEMISTRY METHOD 06/21/2024 11:17 AM [facility] eGFR 16(L) >=60 mL/min/1. 73m2 LAB CHEMISTRY METHOD 06/21/2024 11:17 AM [facility] Comment:Calculation based on the??Chronic Kidney Disease Epidemiology Collaboration (CKD-EPI) equation refit??without adjustment for race. BUN/Creatinine Ratio 18.4 LAB CHEMISTRY METHOD 06/21/2024 11:17 AM [facility] Calcium 8.5 8.5 - 10.5 mg/dL LAB CHEMISTRY METHOD 06/21/2024 11:17 AM [facility] Blood Venous blood specimen / Unknown Venipuncture / Unknown 06/21/2024 6:57 AM EST 06/21/2024 9:08 AM EST us Zak Zuluaga MD LAB BLOOD ORDERABLES Final Resul t [facility] [address] [place] [address], documented in this encounter Visit Diagnoses Diagnosis Unspecified kidney failure COVID-19 documented in this encounter Additional Health Concerns Infection Onset Date Last Indicated Resolved Time ESBL 06/22/2024 06/22/2024 documented as of this encounter Care Teams Financial Assistance Advisor Relationship Specialty Start Date End Date Uday Sheehan MD [address] [place] [address] Dr Donna [place] PCP - General On Site Nurse 12/19/16 documented as of this encounter
--- OUTSIDE RECORDS SUMMARY | 2024-11-14 14:08 | XMS_ITS | Encounter Summary ---
Author Organization [facility] Address [address] [place] [address] Care Team Providers Care Medical Scheduler Name Role Phone Uday Sheehan MD Primary Care Provider [phone] Encounter Details Date Type Department Care Team (Late st Contact Info) Description 08/21/2024 Lab Requisition [facility] - Main Lab [address] [place] [address] Tabby Bledsoe MD [address] [address] Anemia, unspecified Social History Tobacco Use Types [...] LAB CHEMISTRY METHOD 08/21/2024 11:26 AM EST [facility] Potassium 3.8 3.5 - 5.5 mmol/L LAB CHEMISTRY METHOD 08/21/2024 11:[address] [facility] Chloride 109 96 - 110 mmol/L LAB CHEMISTRY METHOD 08/21/2024 11:[address] [facility] CO2 30 21 - 32 mmol/L LAB CHEMISTRY METHOD 08/21/2024 11:[address] [facility] Anion Gap 3 3 - 11 LAB CHEMISTRY METHOD 08/21/2024 11:[address] [facility] Glucose 100 70 - 100 mg/dL LAB CHEMISTRY METHOD 08/21/2024 11:[address] [facility] BUN 22 5 - 25 mg/dL LAB CHEMISTRY METHOD 08/21/2024 11:[address] [facility] Creatinine 1.38(H) 0.70 - 1.30 mg/dL LAB CHEMISTRY METHOD 08/21/2024 11:[address] [facility] eGFR 50(L) >=60 mL/min/1. 73m2 LAB CHEMISTRY METHOD 08/21/2024 11:[address] [facility] Comment:Calculation based on the??Chronic Kidney Disease Epidemiology Collaboration (CKD-EPI) equation refit??without adjustment for race. BUN/Creatinine Ratio 15.9 LAB CHEMISTRY METHOD 08/21/2024 11:[address] [facility] Calcium 8.5 8.5 - 10.5 mg/dL LAB CHEMISTRY METHOD 08/21/2024 11:[address] [facility] Blood Venous blood specimen / Unknown Venipuncture / Unknown 08/21/2024 7:55 AM EST 08/21/2024 10:41 AM EST us Tabby Bledsoe MD LAB BLOOD ORDERABLES Fin al Result [facility] [address] [place] [address], * (ABNORMAL) Complete blood count (08/21/2024 7:55 AM EST) [facility] WBC 6.5 4.8 - 10.8 K/mcL LAB HEMETOLOGY METHOD 08/21/2024 11:[address] [facility] RBC 2.80(L) 4.50 - 5.50 M/mcL LAB HEMETOLOGY METHOD 08/21/2024 11:[address] [facility] Hemoglobin 7.6(L) 13.5 - 17.5 g/dL LAB HEMETOLOGY METHOD 08/21/2024 11:[address] [facility] Hematocrit 26.2(L) 42.0 - 54.0 % LAB HEMETOLOGY METHOD 08/21/2024 11:[address] [facility] MCV 92.3 79.0 - 98.0 FL LAB HEMETOLOGY METHOD 08/21/2024 11:[address] [facility] MCH 26.8(L) 27.0 - 32.0 pcg LAB HEMETOLOGY METHOD 08/21/2024 11:[address] [facility] MCHC 29.0(L) 32.0 - 37.0 g/dL LAB HEMETOLOGY METHOD 08/21/2024 11:[address] [facility] RDW 18.8(H) 11.0 - 15.0 % LAB HEMETOLOGY METHOD 08/21/2024 11:[address] [facility] Platelets 277 130 - 400 K/mcL LAB HEMETOLOGY METHOD 08/21/2024 11:[address] [facility] MPV 9.0 7.0 - 11.0 FL LAB HEMETOLOGY METHOD 08/21/2024 11:[address] [facility] NRBC 0.0 <1.0 % LAB HEMETOLOGY METHOD 08/21/2024 11:[address] [facility] NRBC Absolute 0.00 <0.10 K/mcL LAB HEMETOLOGY METHOD 08/21/2024 11:00 AM EST [facility] Blood Venous blood specimen / Unknown Venipuncture / Unknown 08/21/2024 7:55 AM EST 08/21/2024 10:41 AM EST us Tabby Bledsoe MD LAB BLOOD ORDERABLES Fin al Result [facility] [address] [place] [address], documented in this encounter Visit Diagnoses Diagnosis Anemia, unspecified documented in this encounter Additional Health Concerns Infection Onset Date Last Indicated Resolved Time ESBL 06/22/2024 06/22/2024 documented as of this encounter Care Teams Medical Scheduler Relationship Specialty Start Date End Date Uday Sheehan MD [address] [place] [address] Dr Aliciayoke MD PCP - General Certified Diabetes Educator 12/19/16 documented as of this encounter
--- OUTSIDE RECORDS SUMMARY | 2024-11-14 14:08 | XMS_ITS | Encounter Summary ---
Author Organization [facility] Address [address] [place] [address] Care Team Providers Care Processor Helper Name Role Phone Uday Sheehan Primary Care Provider [phone] Encounter Details Date Type Department Care Team (Late st Contact Info) Description 03/07/2024 Lab Requisition [facility] Lab [address] [place] [address] Valarie Pierson MD [address] [place] [address] Acute and chronic respiratory failure with hypoxia; [...] - 10.8 10*3/uL 03/07/2024 12:12 PM EDT [facility] RBC 3.39(L) 4.70 - 6.10 10*6/uL 03/07/2024 12:12 PM EDT [facility] Hemoglobin 9.4(L) 13.7 - 16.5 g/dL 03/07/2024 12:12 PM EDT [facility] Hematocrit 29.9(L) 40.5 - 48.5 % 03/07/2024 12:12 PM EDT [facility] MCV 88.2 80.0 - 94.0 fL 03/07/2024 12:12 PM EDT [facility] MCH 27.7 26.0 - 34.0 pg 03/07/2024 12:12 PM EDT [facility] MCHC 31.4 31.0 - 36.0 g/dL 03/07/2024 12:12 PM EDT [facility] RDW 15.5(H) 12.0 - 15.0 % 03/07/2024 12:12 PM EDT [facility] RDW Standard Deviation 50.0(H) 35.1 - 43.9 fL 03/07/2024 12:12 PM EDT [facility] Platelets 174 140 - 440 10*3/uL 03/07/2024 12:12 PM EDT [facility] MPV 10.5 9.4 - 12.4 fL 03/07/2024 12:12 PM EDT [facility] Neutrophil % 59.4 50.0 - 75.0 % 03/07/2024 12:12 PM EDT [facility] Immature Grans % 0.7 0.0 - 0.9 % 03/07/2024 12:12 PM EDT [facility] Lymphocyte % 23.8 20.0 - 44.0 % 03/07/2024 12:12 PM EDT [facility] Monocyte % 9.9 0.0 - 14.0 % 03/07/2024 12:12 PM EDT [facility] Eosinophil % 5.7(H) 0.0 - 5.0 % 03/07/2024 12:12 PM EDT [facility] Basophil % 0.5 0.0 - 2.0 % 03/07/2024 12:12 PM EDT [facility] Neutrophil # 5.82 1.80 - 7.70 10*3/uL 03/07/2024 12:12 PM EDT [facility] Immature Grans # 0.07(H) 0.00 - 0.03 10*3/uL 03/07/2024 12:12 PM EDT [facility] Lymphocyte # 2.30 1.00 - 4.75 10*3/uL 03/07/2024 12:12 PM EDT [facility] Monocyte # 1.00 0.00 - 6.00 10*3/uL 03/07/2024 12:12 PM EDT [facility] Eosinophil # 0.60 0.00 - 0.80 10*3/uL 03/07/2024 12:12 PM EDT [facility] Basophil # 0.10 0.00 - 0.20 10*3/uL 03/07/2024 12:12 PM EDT [facility] nRBC % 0.0 0 - 0 /100 WBCs 03/07/2024 12:12 PM EDT [facility] nRBC # <0.01 0.00 - 0.13 10*3/uL 03/07/2024 12:12 PM EDT [facility] Blood Structure of peripheral vein / Unknown Venipuncture / Unknown 03/07/2024 11:28 AM EDT 03/07/2024 11:28 AM EDT us Valarie Pierson MD LAB BLOOD ORDERABLES Final Res ult [facility] [address] [facility] [address] [place] [address], [place] [phone] * (ABNORMAL) Comprehensive Metabolic Panel (03/07/2024 11:28 AM EDT) NA 138 136 - 145 mmol/L 03/07/2024 12:30 PM EDT [facility] K 3.4(L) 3.5 - 5.1 mmol/L 03/07/2024 12:30 PM EDT [facility] Cl 104 98 - 109 mmol/L 03/07/2024 12:30 PM EDT [facility] CO2 23 23 - 32 mmol/L 03/07/2024 12:30 PM EDT [facility] Anion Gap 14 >=0 03/07/2024 12:30 PM EDT [facility] Glucose 135(H) 60 - 99 mg/dL 03/07/2024 12:30 PM EDT [facility] Creatinine 1.28(H) 0.50 - 1.12 mg/dL 03/07/2024 12:30 PM EDT [facility] Calcium 9.4 8.4 - 10.4 mg/dL 03/07/2024 12:30 PM EDT [facility] Total Protein 6.7 6.6 - 8.7 g/dL 03/07/2024 12:30 PM EDT [facility] Albumin 3.3(L) 3.5 - 5.0 g/dL 03/07/2024 12:30 PM EDT [facility] Bilirubin, Total 0.5 0.2 - 1.2 mg/dL 03/07/2024 12:30 PM EDT [facility] Alkaline Phosphatase 112 40 - 129 U/L 03/07/2024 12:30 PM EDT [facility] AST 31 0 - 40 U/L 03/07/2024 12:30 PM EDT [facility] ALT 36 <=41 U/L 03/07/2024 12:30 PM EDT [facility] BUN 35(H) 8 - 23 mg/dL 03/07/2024 12:30 PM EDT [facility] eGFR 55(L) >=60 mL/min/1. 73m2 03/07/2024 12:30 PM EDT [facility] Comment:The estimated glomer ular [...] - 4.2 g/dL 03/07/2024 12:30 PM EDT [facility] A/G Ratio 1.0(L) 1.5 - 3.0 03/07/2024 12:30 PM EDT [facility] Blood Structure of peripheral vein / Unknown Venipuncture / Unknown 03/07/2024 11:28 AM EDT 03/07/2024 11:28 AM EDT us Valarie Pierson MD LAB BLOOD ORDERABLES Final Res ult [facility] [address] [place] [id number], documented in this encounter Visit Diagnoses Diagnosis [...] documented as of this encounter Care Teams Processor Helper Relationship Specialty Start Date End Date Uday Sheehan [address] [place] [address] [place] [address] PCP - General Internal Medicine 03/27/24 documented as of this encounter
--- OUTSIDE RECORDS SUMMARY | 2024-11-14 14:08 | XMS_ITS | Encounter Summary ---
Author Organization [facility] Address [address] [place] [address] Care Team Providers Care Finisher [employer] Name Role Phone Uday Sheehan MD Primary Care Provider [phone] Encounter Details Date Type Department Care Team (Late st Contact Info) Description 10/19/2024 Lab Requisition [facility] - Main Lab [address] [facility] [place] [address] Tabby Bledsoe MD [address] [address] Bacteremia Social History Tobacco Use Types Packs/Day [...] documented as of this encounter Care Teams Finisher [employer] Relationship Specialty Start Date End Date Uday Sheehan MD [address] [place] [address] PCP - General Pipe Insulator Helper 12/19/16 documented as of this encounter
--- OUTSIDE RECORDS SUMMARY | 2024-11-14 14:08 | XMS_ITS | Encounter Summary ---
Author Organization [facility] Address [address] [place] [address] Care Team Providers Care Willow Machine Operator Name Role Phone Uday Sheehan MD Primary Care Provider [phone] Encounter Details Date Type Department Care Team (Late st Contact Info) Description 11/01/[address] [facility] - Main Lab [address] [place] [address] Tabby Bledsoe MD [address] [address] Bacteremia Social History Tobacco Use Types Packs/Day [...] mmol/L LAB CHEMISTRY METHOD 11/04/2024 7:30 PM [facility] Chloride 110 96 - 110 mmol/L LAB CHEMISTRY METHOD 11/04/2024 7:30 PM [facility] CO2 25 21 - 32 mmol/L LAB CHEMISTRY METHOD 11/04/2024 7:30 PM [facility] Anion Gap 7 3 - 11 LAB CHEMISTRY METHOD 11/04/2024 7:30 PM [facility] Glucose 113(H) 70 - 100 mg/dL LAB CHEMISTRY METHOD 11/04/2024 7:30 PM [facility] BUN 30(H) 5 - 25 mg/dL LAB CHEMISTRY METHOD 11/04/2024 7:30 PM [facility] Creatinine 1.06 0.70 - 1.30 mg/dL LAB CHEMISTRY METHOD 11/04/2024 7:30 PM [facility] eGFR 69 >=60 mL/min/1. 73m2 LAB CHEMISTRY METHOD 11/04/2024 7:30 PM [facility] Comment:Calculation based on the??Chronic Kidney Disease Epidemiology Collaboration (CKD-EPI) equation refit??without adjustment for race. BUN/Creatinine Ratio 28.3 LAB CHEMISTRY METHOD 11/04/2024 7:30 PM [facility] Calcium 7.6(L) 8.5 - 10.5 mg/dL LAB CHEMISTRY METHOD 11/04/2024 7:30 PM [facility] Blood Venous blood specimen / Unknown Venipuncture / Unknown 11/04/2024 9:52 AM EDT 11/04/2024 11:40 AM EDT us Tabby Bledsoe MD LAB BLOOD ORDERABLES Fin al Result [facility] [address] [place] [address], * (ABNORMAL) Complete blood count (11/04/2024 9:52 AM EDT) [facility] WBC 5.6 4.8 - 10.8 K/mcL LAB HEMETOLOGY METHOD 11/04/2024 1:17 PM [facility] RBC 2.40(L) 4.50 - 5.50 M/mcL LAB HEMETOLOGY METHOD 11/04/2024 1:17 PM [facility] Hemoglobin 6.5(L) 13.5 - 17.5 g/dL LAB HEMETOLOGY METHOD 11/04/2024 1:17 PM [facility] Hematocrit 21.8(L) 42.0 - 54.0 % LAB HEMETOLOGY METHOD 11/04/2024 1:17 PM [facility] MCV 92.0 79.0 - 98.0 FL LAB HEMETOLOGY METHOD 11/04/2024 1:17 PM [facility] MCH 27.4 27.0 - 32.0 pcg LAB HEMETOLOGY METHOD 11/04/2024 1:17 PM [facility] MCHC 29.8(L) 32.0 - 37.0 g/dL LAB HEMETOLOGY METHOD 11/04/2024 1:17 PM [facility] RDW 17.2(H) 11.0 - 15.0 % LAB HEMETOLOGY METHOD 11/04/2024 1:17 PM [facility] Platelets 224 130 - 400 K/mcL LAB HEMETOLOGY METHOD 11/04/2024 1:17 PM [facility] MPV 9.8 7.0 - 11.0 FL LAB HEMETOLOGY METHOD 11/04/2024 1:17 PM [facility] NRBC 0.0 <1.0 % LAB HEMETOLOGY METHOD 11/04/2024 1:17 PM [facility] NRBC Absolute 0.00 <0.10 K/mcL LAB HEMETOLOGY METHOD 11/04/2024 1:17 PM EDT [facility] Blood Venous blood specimen / Unknown Venipuncture / Unknown 11/04/2024 9:52 AM EDT 11/04/2024 11:23 AM EDT us Tabby Bledsoe MD LAB BLOOD ORDERABLES Fin al Result [facility] [address] [place] [address], documented in this encounter Visit Diagnoses Diagnosis Bacteremia documented in this encounter Additional Health Concerns Infection Onset Date Last Indicated Resolved Time ESBL 06/22/2024 06/22/2024 documented as of this encounter Care Teams Willow Machine Operator Relationship Specialty Start Date End Date Uday Sheehan MD [address] [place] [address] Dr Donna [place] PCP - General Water Filter Cleaner 12/19/16 documented as of this encounter
--- OUTSIDE RECORDS SUMMARY | 2024-11-14 14:08 | XMS_ITS | Clinical Summary ---
Author Organization [facility], Address [address] [place] [address] [place] [address] Phone Care Team Providers Care Plastic Dolls Mold Filler Name Role Phone Uday Sheehan MD Primary Care Provider [phone] Allergies Active Allergy Reactions Criticality Noted Date [...] age to complete this topic Insurance Medicare [facility] Medicare [facility] Medicare [facility] Care Teams Plastic Dolls Mold Filler Relationship Specialty Start Date End Date Uday Sheehan MD [address] [place] PCP - General 05/14/19
--- OUTSIDE RECORDS SUMMARY | 2024-11-14 14:08 | XMS_ITS | Clinical Summary ---
Author Organization [address] Address [address] [place] [address] Phone Care Team Providers Care Pet Counselor Name Role Phone Uday Sheehan MD Primary Care Provider [phone] Encounters Date Type Department Care Team Description 11/14/2024 Lab Requisition [facility] - Main Lab [address] [place] [address] Tabby Bledsoe MD Anemia, unspecified 11/12/2024 Lab Requisition [facility] - Main Lab [address] [place] [address] Tabby Bledsoe MD Anemia, unspecified 11/09/2024 Lab Requisition [facility] - Main Lab [address] [place] [address] Tabby Bledsoe MD Bacteremia 11/07/2024 Lab Requisition [facility] - Main Lab [address] [place] [address] Erica Charles NP Anemia, unspecified 11/01/2024 Lab Requisition [facility] - Main Lab [address] [place] [address] Tabby Bledsoe MD Bacteremia 10/27/2024 Lab Requisition [facility] - Main Lab [address] [place] [address] Tabby Bledsoe MD Bacteremia 10/19/2024 Lab Requisition [facility] - Main Lab [address] [place] [address] Tabby Bledsoe MD Bacteremia 10/18/2024 Lab Requisition [facility] Main Lab [address] [place] [address] Tabby Bledsoe MD Osteomyelitis, unspecified (CMS/[facility] V24, [facility] V28) 10/17/2024 Lab Requisition [facility] Main Lab [address] [place] [address] Tabby Bledsoe MD Anemia, unspecified; Chronic kidney disease, unspecified 10/12/2024 Lab Requisition [facility] Lab [address] [place] [address] Tabby Bledsoe MD Bacteremia 10/06/2024 Lab Requisition [facility] - Main Lab [address] [place] [address] Tabby Bledsoe MD Bacteremia 10/03/2024 Lab Requisition [facility] - Main Lab [address] [place] [address] Tabby Bledsoe MD Anemia, unspecified 09/28/2024 Lab Requisition [facility] - Main Lab [address] [place] [address] Tabby Bledsoe MD Bacteremia 09/25/2024 Lab Requisition [facility] Main Lab [address] [place] [address] Tabby Bledsoe MD Chronic kidney disease, unspecified 09/20/2024 Lab Requisition [facility] Main Lab [address] [place] [address] Tabby Bledsoe MD Bacteremia 09/18/2024 Lab Requisition [facility] - Main Lab [address] [place] [address] Tabby Bledsoe MD Anemia, unspecified; Other disorders of electrolyte and fluid balance, not elsewhere classified 09/15/2024 Lab Requisition [facility] - Main Lab [address] [place] [address] Tabby Bledsoe MD Bacteremia 09/08/2024 Lab Requisition [facility] Main Lab [address] [place] [address] Tabby Bledsoe MD Bacteremia; Osteomyelitis, unspecified (CMS/[facility] V24, [facility] V28) 09/05/2024 Lab Requisition [facility] Lab [address] [place] [address] Tabby Bledsoe MD Osteomyelitis, unspecified (CMS/[facility] V24, [facility] V28); Extended spectrum beta lactamase (ESBL) resistance 09/04/2024 Lab Requisition [facility] Lab [address] [place] [address] Tabby Bledsoe MD Sequelae of unspecified nutritional deficiency; Encounter for therapeutic drug level monitoring 08/31/2024 Lab Requisition [facility] Lab [address] [place] [address] Tabby Bledsoe MD Bacteremia 08/28/2024 Lab Requisition [facility] Lab [address] [place] [address] Tabby Bledsoe MD Anemia, unspecified 08/24/2024 Lab Requisition [facility] Main Lab [address] [place] [address] Tabby Bledsoe MD Bacteremia; Heart failure, unspecified (CMS/[facility] V24, [facility] V28); Pressure ulcer of unspecified site, unspecified stage 08/21/2024 Lab Requisition [facility] Main Lab [address] [place] [address] Tabby Bledsoe MD Anemia, unspecified 08/18/2024 Lab Requisition [facility] Main Lab [address] [place] [address] Tabby Bledsoe MD Bacteremia from Last 3 [...] 11/09/2021, 04/05/2021 Hypertension/CHF/CAD Annual BMP Blood Test 11/11/2025 11/11/2024, 11/04/2024, 10/14/2024, Additional history exists Influenza Vaccine Completed 04/08/2024 [...] Routine 11/14/2024 6:10 AM EDT Anemia, unspecified COMPLETE BLOOD COUNT Routine 11/12/2024 5:45 AM EDT Anemia, unspecified COMPREHENSIVE METABOLIC PANEL Routine 11/11/2024 11:28 AM EDT Bacteremia COMPLETE BLOOD COUNT Routine 11/11/2024 11:28 AM EDT Bacteremia CBC WITH AUTO DIFFERENTIAL Routine 11/07/2024 5:17 [...] (CMS/HCC V24, CMS/HCC V28) C-REACTIVE PROTEIN Routine 10/17/2024 7: 07 [...] Months Results * (ABNORMAL) Complete blood count (11/14/2024 6:10 AM EDT) Only the most recent of18 resultswithin the time period is included. WBC 6.4 4.8 - 10.8 K/mcL LAB HEMETOLOGY METHOD 11/14/2024 9:19 AM [facility] RBC 2.50(L) 4.50 - 5.50 M/mcL LAB HEMETOLOGY METHOD 11/14/2024 9:19 AM [facility] Hemoglobin 6.7(L) 13.5 - 17.5 g/dL LAB HEMETOLOGY METHOD 11/14/2024 9:19 AM [facility] Hematocrit 23.1(L) 42.0 - 54.0 % LAB HEMETOLOGY METHOD 11/14/2024 9:19 AM [facility] MCV 92.0 79.0 - 98.0 FL LAB HEMETOLOGY METHOD 11/14/2024 9:19 AM [facility] MCH 26.7(L) 27.0 - 32.0 pcg LAB HEMETOLOGY METHOD 11/14/2024 9:19 AM [facility] MCHC 29.0(L) 32.0 - 37.0 g/dL LAB HEMETOLOGY METHOD 11/14/2024 9:19 AM [facility] RDW 17.5(H) 11.0 - 15.0 % LAB HEMETOLOGY METHOD 11/14/2024 9:19 AM [facility] Platelets 239 130 - 400 K/mcL LAB HEMETOLOGY METHOD 11/14/2024 9:19 AM [facility] MPV 9.3 7.0 - 11.0 FL LAB HEMETOLOGY METHOD 11/14/2024 9:19 AM [facility] NRBC 0.0 <1.0 % LAB HEMETOLOGY METHOD 11/14/2024 9:19 AM EDT [facility] NRBC Absolute 0.00 <0.10 K/mcL LAB HEMETOLOGY METHOD 11/14/2024 9:19 AM [facility] Blood Venous blood specimen / Unknown Venipuncture / Unknown 11/14/2024 6:10 AM EDT 11/14/2024 8:46 AM EDT us Tbaby Bledsoe MD LAB BLOOD ORDERABLES Fin al Result [facility] [address] [place] [address], [place] [phone] * (ABNORMAL) Comprehensive metabolic panel (11/11/2024 11:28 AM EDT) Only the most recent of10 resultswithin the time period is included. Sodium 143 133 - 145 mmol/L LAB CHEMISTRY METHOD 11/11/2024 2:44 PM [facility] Potassium 4.3 3.5 - 5.5 mmol/L LAB CHEMISTRY METHOD 11/11/2024 2:44 PM [facility] Chloride 108 96 - 110 mmol/L LAB CHEMISTRY METHOD 11/11/2024 2:44 PM [facility] CO2 28 21 - 32 mmol/L LAB CHEMISTRY METHOD 11/11/2024 2:44 PM [facility] Anion Gap 7 3 - 11 LAB CHEMISTRY METHOD 11/11/2024 2:44 PM [facility] Glucose 125(H) 70 - 100 mg/dL LAB CHEMISTRY METHOD 11/11/2024 2:44 PM [facility] BUN 29(H) 5 - 25 mg/dL LAB CHEMISTRY METHOD 11/11/2024 2:44 PM [facility] Creatinine 1.27 0.70 - 1.30 mg/dL LAB CHEMISTRY METHOD 11/11/2024 2:44 PM [facility] eGFR 56(L) >=60 mL/min/1. 73m2 LAB CHEMISTRY METHOD 11/11/2024 2:44 PM [facility] Comment:Calculation based on the??Chronic Kidney Disease Epidemiology Collaboration (CKD-EPI) equation refit??without adjustment for race. BUN/Creatinine Ratio 22.8 LAB CHEMISTRY METHOD 11/11/2024 2:44 PM [facility] Calcium 8.1(L) 8.5 - 10.5 mg/dL LAB CHEMISTRY METHOD 11/11/2024 2:44 PM [facility] AST (SGOT) 41 10 - 42 unit/L LAB CHEMISTRY METHOD 11/11/2024 2:44 PM [facility] ALT (SGPT) 45 10 - 60 unit/L LAB CHEMISTRY METHOD 11/11/2024 2:44 PM [facility] Alkaline Phosphatase 94 42 - 121 unit/L LAB CHEMISTRY METHOD 11/11/2024 2:44 PM [facility] Total Protein 5.2(L) 6.0 - 8.0 g/dL LAB CHEMISTRY METHOD 11/11/2024 2:44 PM [facility] Albumin 1.2(L) 3.2 - 5.0 g/dL LAB CHEMISTRY METHOD 11/11/2024 2:44 PM [facility] Total Bilirubin 0.3 0.0 - 1.4 mg/dL LAB CHEMISTRY METHOD 11/11/2024 2:44 PM [facility] Blood Venous blood specimen / Unknown Venipuncture / Unknown 11/11/2024 11:28 AM EDT 11/11/2024 12:52 PM EDT Tabby Bledsoe MD LAB BLOOD ORDERABLES Fin al Result [facility] [address] [place] [address], * (ABNORMAL) CBC auto differential (11/07/2024 5:17 AM EDT) [facility] Signature WBC 6.5 4.8 - 10.8 K/mcL LAB HEMETOLOGY METHOD 11/07/2024 7:19 AM EDT [facility] RBC 2.50(L) 4.50 - 5.50 M/mcL LAB HEMETOLOGY METHOD 11/07/2024 7:19 AM EDT [facility] Hemoglobin 6.7(L) 13.5 - 17.5 g/dL LAB HEMETOLOGY METHOD 11/07/2024 7:19 AM [facility] Hematocrit 23.3(L) 42.0 - 54.0 % LAB HEMETOLOGY METHOD 11/07/2024 7:19 AM EDT [facility] MCV 94.3 79.0 - 98.0 FL LAB HEMETOLOGY METHOD 11/07/2024 7:19 AM EDT [facility] MCH 27.1 27.0 - 32.0 pcg LAB HEMETOLOGY METHOD 11/07/2024 7:19 AM [facility] MCHC 28.8(L) 32.0 - 37.0 g/dL LAB HEMETOLOGY METHOD 11/07/2024 7:19 AM EDT [facility] RDW 17.5(H) 11.0 - 15.0 % LAB HEMETOLOGY METHOD 11/07/2024 7:19 AM EDT [facility] Platelets 322 130 - 400 K/mcL LAB HEMETOLOGY METHOD 11/07/2024 7:19 AM [facility] MPV 9.6 7.0 - 11.0 FL LAB HEMETOLOGY METHOD 11/07/2024 7:19 AM [facility] NRBC 0.0 <1.0 % LAB HEMETOLOGY METHOD 11/07/2024 7:19 AM [facility] NRBC Absolute 0.00 <0.10 K/mcL LAB HEMETOLOGY METHOD 11/07/2024 7:19 AM [facility] Neutrophils Relative 61.3 % LAB HEMETOLOGY METHOD 11/07/2024 7:19 AM [facility] Lymphocytes Relative 20.3 % LAB HEMETOLOGY METHOD 11/07/2024 7:19 AM [facility] Monocytes Relative 13.3 % LAB HEMETOLOGY METHOD 11/07/2024 7:19 AM [facility] Eosinophils Relative 3.7 % LAB HEMETOLOGY METHOD 11/07/2024 7:19 AM [facility] Basophils Relative 0.3 % LAB HEMETOLOGY METHOD 11/07/2024 7:19 AM [facility] Immature Granulocytes Relative 1.1 % LAB HEMETOLOGY METHOD 11/07/2024 7:19 AM [facility] Neutrophils Absolute 4.01 1.50 - 7.00 K/mcL LAB HEMETOLOGY METHOD 11/07/2024 7:19 AM [facility] Lymphocytes Absolute 1.33 1.00 - 5.00 K/mcL LAB HEMETOLOGY METHOD 11/07/2024 7:19 AM [facility] Monocytes Absolute 0.87 0.20 - 1.00 K/mcL LAB HEMETOLOGY METHOD 11/07/2024 7:19 AM [facility] Eosinophils Absolute 0.24 0.00 - 0.50 K/mcL LAB HEMETOLOGY METHOD 11/07/2024 7:19 AM [facility] Basophils Absolute 0.02 0.00 - 0.20 K/mcL LAB HEMETOLOGY METHOD 11/07/2024 7:19 AM EDT [facility] Immature Granulocytes Absolute 0.07(H) 0.00 - 0.03 K/mcL LAB HEMETOLOGY METHOD 11/07/2024 7:19 AM EDT [facility] Blood Venous blood specimen / Unknown Venipuncture / Unknown 11/07/2024 5:17 AM EDT 11/07/2024 6:39 AM EDT us Erica Charles NP LAB BLOOD ORDERABLES Final Resul t [facility] [address] [place] [address], * (ABNORMAL) Basic metabolic panel (11/04/2024 9:52 AM EDT) Only the most recent of3 resultswithin the time period is included. Sodium 142 133 - 145 mmol/L LAB CHEMISTRY METHOD 11/04/2024 7:30 PM [facility] Potassium 3.9 3.5 - 5.5 mmol/L LAB CHEMISTRY METHOD 11/04/2024 7:30 PM [facility] Chloride 110 96 - 110 mmol/L LAB CHEMISTRY METHOD 11/04/2024 7:30 PM [facility] CO2 25 21 - 32 mmol/L LAB CHEMISTRY METHOD 11/04/2024 7:30 PM [facility] Anion Gap 7 3 - 11 LAB CHEMISTRY METHOD 11/04/2024 7:30 PM [facility] Glucose 113(H) 70 - 100 mg/dL LAB CHEMISTRY METHOD 11/04/2024 7:30 PM [facility] BUN 30(H) 5 - 25 mg/dL LAB CHEMISTRY METHOD 11/04/2024 7:30 PM [facility] Creatinine 1.06 0.70 - 1.30 mg/dL LAB CHEMISTRY METHOD 11/04/2024 7:30 PM EDT [facility] eGFR 69 >=60 mL/min/1. 73m2 LAB CHEMISTRY METHOD 11/04/2024 7:30 PM EDT [facility] Comment:Calculation based on the??Chronic Kidney Disease Epidemiology Collaboration (CKD-EPI) equation refit??without adjustment for race. BUN/Creatinine Ratio 28.3 LAB CHEMISTRY METHOD 11/04/2024 7:30 PM EDT [facility] Calcium 7.6(L) 8.5 - 10.5 mg/dL LAB CHEMISTRY METHOD 11/04/2024 7:30 PM EDT [facility] Blood Venous blood specimen / Unknown Venipuncture / Unknown 11/04/2024 9:52 AM EDT 11/04/2024 11:40 AM EDT Tabby Bledsoe MD LAB BLOOD ORDERABLES Fin al Result Performing Organization Address City/[facility]/ZIP Co de Phone Number [facility] [address] [place] [address], [place] [phone] * (ABNORMAL) Sedimentation rate (10/18/2024 7:01 AM EDT) Only the most recent of2 resultswithin the time period is included. Sed Rate 58(H) 0 - 20 mm/hr LAB HEMETOLOGY METHOD 10/18/2024 10:16 AM EDT [facility] Blood Venous blood specimen / Unknown Venipuncture / Unknown 10/18/2024 7:01 AM EDT 10/18/2024 9:11 AM EDT Tabby Bledsoe MD LAB BLOOD ORDERABLES Fin al Result [facility] [address] [place] [address], [place] [phone] * (ABNORMAL) C-reactive protein (10/18/2024 7:01 AM EDT) Only the most recent of2 resultswithin the time period is included. C-Reactive Protein 13.40(H) <=0.50 mg/dL LAB CHEMISTRY METHOD 10/18/2024 10:08 AM EDT [facility] Blood Venous blood specimen / Unknown Venipuncture / Unknown 10/18/2024 7:01 AM EDT 10/18/2024 9:11 AM EDT Tabby Bledsoe MD LAB BLOOD ORDERABLES Fin al Result Performing Organization Address City/[facility]/ZIP Co de Phone Number [facility] [address] [place] [address], [place] [phone] * (ABNORMAL) Prealbumin (09/25/2024 5:37 AM EDT) Only the most recent of2 resultswithin the time period is included. [facility] Prealbumin 10(L) 18 - 45 mg/dL LAB CHEMISTRY METHOD 09/25/2024 3:27 PM EDT [facility] Blood Venous blood specimen / Unknown Venipuncture / Unknown 09/25/2024 5:37 AM EDT 09/25/2024 11:49 AM EDT Tabby Bledsoe MD LAB BLOOD ORDERABLES Fin al Result Performing Organization Address City/[facility]/ZIP Co de Phone Number [facility] [address] [place] [address], [place] [phone] * Vancomycin, trough (09/09/2024 9:00 AM EST) Only the most recent of3 resultswithin the time period is included. [facility] Vancomycin Trough 18.4 10.0 - 20.0 mcg/mL LAB CHEMISTRY METHOD 09/09/2024 1:34 PM EST [facility] Blood Venous blood specimen / Unknown Venipuncture / Unknown 09/09/2024 9:00 AM EST 09/09/2024 11:09 AM EST Tabby Bledsoe MD LAB BLOOD ORDERABLES Fin al Result Performing Organization Address City/[facility]/ZIP Co de Phone Number [facility] [address] [place] [address], [place] [phone] * Vancomycin random (09/04/2024 7:02 AM EST) Vancomycin Rm 18.9 mcg/mL LAB CHEMISTRY METHOD 09/04/2024 12:36 PM EST [facility] Blood Venous blood specimen / Unknown Venipuncture / Unknown 09/04/2024 7:02 AM EST 09/04/2024 9:13 AM EST Tabby Bledsoe MD LAB BLOOD ORDERABLES Fin al Result Performing Organization Address [facility] de Phone Number [facility] [address] [place] [address], [place] [phone] from Last 3 Months Additional Health Concerns Infection Onset 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
--- OUTSIDE RECORDS SUMMARY | 2024-11-14 14:08 | XMS_ITS | Encounter Summary ---
Author Organization [facility] Address [address] [place] [address] Care Team Providers Care Manpower Development Manager Name Role Phone Uday Sheehan Primary Care Provider [phone] Encounter Details Date Type Department Care Team (Late st Contact Info) Description 03/18/2024 Lab Requisition [facility] [address] [place] [address] Cecilio Bautista PA [address] [place] [address] Acute respiratory failure with hypoxia; No diagnosis [...] - 10.8 10*3/uL 03/18/2024 10:10 AM EDT [facility] RBC 2.81(L) 4.70 - 6.10 10*6/uL 03/18/2024 10:10 AM EDT [facility] Hemoglobin 8.1(L) 13.7 - 16.5 g/dL 03/18/2024 10:10 AM EDT [facility] Hematocrit 23.6(L) 40.5 - 48.5 % 03/18/2024 10:10 AM EDT [facility] MCV 84.0 80.0 - 94.0 fL 03/18/2024 10:10 AM EDT [facility] MCH 28.8 26.0 - 34.0 pg 03/18/2024 10:10 AM EDT [facility] MCHC 34.3 31.0 - 36.0 g/dL 03/18/2024 10:10 AM EDT [facility] RDW 15.1(H) 12.0 - 15.0 % 03/18/2024 10:10 AM EDT [facility] RDW Standard Deviation 45.7(H) 35.1 - 43.9 fL 03/18/2024 10:10 AM EDT [facility] Platelets 159 140 - 440 10*3/uL 03/18/2024 10:10 AM EDT [facility] MPV 10.1 9.4 - 12.4 fL 03/18/2024 10:10 AM EDT [facility] Neutrophil % 55.7 50.0 - 75.0 % 03/18/2024 10:10 AM EDT [facility] Immature Grans % 0.3 0.0 - 0.9 % 03/18/2024 10:10 AM EDT [facility] Lymphocyte % 28.2 20.0 - 44.0 % 03/18/2024 10:10 AM EDT [facility] Monocyte % 12.5 0.0 - 14.0 % 03/18/2024 10:10 AM EDT [facility] Eosinophil % 2.9 0.0 - 5.0 % 03/18/2024 10:10 AM EDT [facility] Basophil % 0.4 0.0 - 2.0 % 03/18/2024 10:10 AM EDT [facility] Neutrophil # 4.10 1.80 - 7.70 10*3/uL 03/18/2024 10:10 AM EDT [facility] Immature Grans # <0.03 0.00 - 0.03 10*3/uL 03/18/2024 10:10 AM EDT [facility] Lymphocyte # 2.10 1.00 - 4.75 10*3/uL 03/18/2024 10:10 AM EDT [facility] Monocyte # 0.90 0.00 - 6.00 10*3/uL 03/18/2024 10:10 AM EDT [facility] Eosinophil # 0.20 0.00 - 0.80 10*3/uL 03/18/2024 10:10 AM EDT [facility] Basophil # <0.03 0.00 - 0.20 10*3/uL 03/18/2024 10:10 AM EDT [facility] nRBC % 0.0 0 - 0 /100 WBCs 03/18/2024 10:10 AM EDT [facility] nRBC # <0.01 0.00 - 0.13 10*3/uL 03/18/2024 10:10 AM EDT [facility] Blood Structure of peripheral vein / Unknown 03/18/2024 9:25 AM EDT 03/18/2024 9:25 AM EDT Cecilio ZHU LAB BLOOD ORDERABLES Final R esult Performing Organization Address [facility]/ZIP Co de Phone Number [facility] [address] [address], [place] [phone] * Vancomycin, Trough (03/18/2024 9:25 AM EDT) Vancomycin Trough 15.6 10.0 - 20.0 ug/mL 03/18/2024 10:36 AM EDT [facility] Blood Structure of peripheral vein / Unknown 03/18/2024 9:25 AM EDT 03/18/2024 9:25 AM EDT Cecilio Bautista ID LAB BLOOD ORDERABLES Final R [facility] Performing Organization Address [facility] Co de Phone Number [facility] [address] [address], [place] [phone] * (ABNORMAL) Comprehensive Metabolic Panel (03/18/2024 9:25 AM EDT) NA 135(L) 136 - 145 mmol/L 03/18/2024 10:42 AM EDT [facility] K 3.6 3.5 - 5.1 mmol/L 03/18/2024 10:42 AM EDT [facility] Cl 96(L) 98 - 109 mmol/L 03/18/2024 10:42 AM EDT [facility] CO2 27 23 - 32 mmol/L 03/18/2024 10:42 AM EDT [facility] Anion Gap 16 >=0 03/18/2024 10:42 AM EDT [facility] Glucose 106(H) 60 - 99 mg/dL 03/18/2024 10:42 AM EDT [facility] Creatinine 1.00 0.50 - 1.12 mg/dL 03/18/2024 10:42 AM EDT [facility] Calcium 8.7 8.4 - 10.4 mg/dL 03/18/2024 10:42 AM EDT [facility] Total Protein 6.1(L) 6.6 - 8.7 g/dL 03/18/2024 10:42 AM EDT [facility] Albumin 3.1(L) 3.5 - 5.0 g/dL 03/18/2024 10:42 AM EDT [facility] Bilirubin, Total 0.5 0.2 - 1.2 mg/dL 03/18/2024 10:42 AM EDT [facility] Alkaline Phosphatase 107 40 - 129 U/L 03/18/2024 10:42 AM EDT [facility] AST 32 0 - 40 U/L 03/18/2024 10:42 AM EDT [facility] ALT 25 <=41 U/L 03/18/2024 10:42 AM EDT [facility] BUN 21 8 - 23 mg/dL 03/18/2024 10:42 AM EDT [facility] eGFR 74 >=60 mL/min/1. 73m2 03/18/2024 10:42 AM EDT [facility] Comment:The estimated glomer ular filtration rate [...] - 4.2 g/dL 03/18/2024 10:42 AM EDT [facility] A/G Ratio 1.0(L) 1.5 - 3.0 03/18/2024 10:42 AM T [facility] Blood Structure of peripheral vein / Unknown 03/18/2024 9:25 AM EDT 03/18/2024 9:25 AM EDT us Cecilio ZHU LAB BLOOD ORDERABLES Final R esult [facility] [address] [place] [address], [place] [phone] documented in this encounter Visit Diagnoses Diagnosis [...] documented as of this encounter Care Teams Manpower Development Manager Relationship Specialty Start Date End Date Uday Sheehan [address] [place] [address] [place] [address] PCP - General Internal Medicine 03/27/24 documented as of this encounter
--- OUTSIDE RECORDS SUMMARY | 2024-11-14 14:08 | XMS_ITS | Encounter Summary ---
Author Organization [facility] Address [address] [place] [address] Care Team Providers Care Roaster Helper Name Role Phone Uday Sheehan Primary Care Provider [phone] Encounter Details Date Type Department Care Team (Late st Contact Info) Description 03/17/2024 Lab Requisition [facility] Lab [address] [place] [address] Cecilio Bautista PA [address] [place] [address] Acute respiratory failure with hypoxia Social History [...] encounter Procedures * Due to [place] [employer] law, this organization might not be sharing negative HIV tests. Procedure Name Priority Date/Time Associated Diagnosis Comments C DIFF TOXIN B PCR W/REFLEX TO GDH & TOXIN (AMBULATORY) [facility] Routine 03/17/2024 7:46 AM EDT Acute respiratory failure with hypoxia (HCC) documented in this encounter Results * Due to [facility] law, this organization might not be sharing negative HIV tests. * C diff Toxin B PCR w/Reflex to GDH & Toxin (03/17/2024 7:46 AM EDT) C diff PCR Not Detected Not Detected [employer]ERT 03/17/2024 9:01 AM EDT [facility] Stool Rectal route / Unknown 03/17/2024 7:46 AM EDT 03/17/2024 7:46 AM EDT Narrative [facility] - 03/17/2024 9:01 AM EDT Methodology: Real-time polymerase chain reaction (PCR) to detect the toxin B gene of toxigenic Clostridioides difficile (C. difficile) in unformed (liquid or soft) stool specimens obtained from patients suspected of having C. difficile infections (CDI). Cecilio ZHU LAB BODY FLUIDS AND STOOLS O RDERABLES Final Result Performing Organization Address City/State/[facility] Co de Phone Number [facility] [address] [place] [address], documented in this encounter Visit Diagnoses Diagnosis [...] documented as of this encounter Care Teams Roaster Helper Relationship Specialty Start Date End Date Uday Sheehan [address] [place] [address] [place] [address] PCP - General Internal Medicine 03/27/24 documented as of this encounter
--- OUTSIDE RECORDS SUMMARY | 2024-11-14 14:08 | XMS_ITS | Encounter Summary ---
Author Organization [facility] Address [address] [place] [address] Care Team Providers Care Power Electronics Engineer Name Role Phone Uday Sheehan MD Primary Care Provider [phone] Encounter Details Date Type Department Care Team (Late st Contact Info) Description 10/18/2024 Lab Requisition [facility] [address] [facility] [place] [address] Tabby Bledsoe MD [address] [facility] [address] [place] [address] Osteomyelitis, unspecified (CMS/HCC V24, CMS/HCC V28) Social [...] (ABNORMAL) Sedimentation rate (10/18/2024 7:01 AM EDT) [facility] Sed Rate 58(H) 0 - 20 mm/hr LAB HEMETOLOGY METHOD 10/18/2024 10:16 AM EDT [facility] Blood Venous blood specimen / Unknown Venipuncture / Unknown 10/18/2024 7:01 AM EDT 10/18/2024 9:11 AM EDT Tabby Bledsoe MD LAB BLOOD ORDERABLES Fin al Result Performing Organization Address City/[facility]/ZIP Co de Phone Number [facility] [address] [place] [address], [place] [phone] * (ABNORMAL) C-reactive protein (10/18/2024 7:01 AM EDT) [facility] C-Reactive Protein 13.40(H) <=0.50 mg/dL LAB CHEMISTRY METHOD 10/18/2024 10:08 AM EDT [facility] Blood Venous blood specimen / Unknown Venipuncture / Unknown 10/18/2024 7:01 AM EDT 10/18/2024 9:11 AM EDT Tabby Bledsoe MD LAB BLOOD ORDERABLES Fin al Result Performing Organization Address City/[facility]/ZIP Co de Phone Number [facility] [address] [place] [address], [place] [phone] * (ABNORMAL) Complete blood count (10/18/2024 7:01 AM EDT) [facility] WBC 6.6 4.8 - 10.8 K/[facility] LAB HEMETOLOGY METHOD 10/18/2024 9:51 AM EDT [facility] RBC 2.40(L) 4.50 - 5.50 M/[facility] LAB HEMETOLOGY METHOD 10/18/2024 9:51 AM [facility] Hemoglobin 6.7(L) 13.5 - 17.5 g/dL LAB HEMETOLOGY METHOD 10/18/2024 9:51 AM [facility] Hematocrit 22.8(L) 42.0 - 54.0 % LAB HEMETOLOGY METHOD 10/18/2024 9:51 AM [facility] MCV 93.4 79.0 - 98.0 [place] LAB HEMETOLOGY METHOD 10/18/2024 9:51 AM [facility] LAB MCH 27.5 27.0 - 32.0 pcg LAB HEMETOLOGY METHOD 10/18/2024 9:51 AM [facility] LAB MCHC 29.4(L) 32.0 - 37.0 g/dL LAB HEMETOLOGY METHOD 10/18/2024 9:51 AM [facility] RDW 16.7(H) 11.0 - 15.0 % LAB HEMETOLOGY METHOD 10/18/2024 9:51 AM [facility] Platelets 259 130 - 400 K/mcL LAB HEMETOLOGY METHOD 10/18/2024 9:51 AM [facility] MPV 9.2 7.0 - 11.0 [place] LAB HEMETOLOGY METHOD 10/18/2024 9:51 AM [facility] NRBC 0.0 <1.0 % LAB HEMETOLOGY METHOD 10/18/2024 9:51 AM [facility] NRBC Absolute 0.00 <0.10 K/mcL LAB HEMETOLOGY METHOD 10/18/2024 9:51 AM [facility] Blood Venous blood specimen / Unknown Venipuncture / Unknown 10/18/2024 7:01 AM EDT 10/18/2024 9:11 AM EDT Tabby Bledsoe MD LAB BLOOD ORDERABLES Fin al Result [facility] [address] [place] [address], documented in this encounter Visit Diagnoses Diagnosis Osteomyelitis, unspecified (CMS/HCC V24, CMS/HCC V28) documented in this encounter Additional Health Concerns Infection Onset Date Last Indicated Resolved Time ESBL 06/22/2024 06/22/2024 documented as of this encounter Care Teams Power Electronics Engineer Relationship Specialty Start Date End Date Uday Sheehan MD [address] [place] [address] Dr Donna [place] PCP - General Finishing Frame Runner 12/19/16 documented as of this encounter
--- OUTSIDE RECORDS SUMMARY | 2024-11-14 14:08 | XMS_ITS | Encounter Summary ---
Author Organization [facility] Address [address] [place] [address] Care Team Providers Care Painting Worker Name Role Phone Uday Sheehan Primary Care Provider [phone] Encounter Details Date Type Department Care Team (Late st Contact Info) Description 03/11/2024 Lab Requisition [facility] Lab [address] [place] [address] Lidia Barry, CB [address] [place] [address] Acute and chronic respiratory failure with hypoxia; [...] after 5 days 03/16/2024 3:06 PM EDT [facility] Blood Structure of peripheral vein / Unknown Venipuncture / Unknown 03/11/2024 1:30 PM EDT 03/11/2024 2:34 PM EDT us Frazierkevin Barry LAB MICROBIOLOGY - GENERAL O RDERABLES Final Result Performing Organization Address City/[facility]/ZIP Co de Phone Number [facility] [address] [address], [place] [phone] * Blood Culture (03/11/2024 1:30 PM EDT) Blood Culture No growth after 5 days 03/16/2024 3:06 PM EDT [facility] Blood Structure of peripheral vein / Unknown Venipuncture / Unknown 03/11/2024 1:30 PM EDT 03/11/2024 2:34 PM EDT [facility] MICROBIOLOGY - GENERAL O RDERABLES Final Result Performing Organization Address [facility]/ZIP Co de Phone Number [facility] [address] [address], [place] [phone] * (ABNORMAL) Microscopic Urinalysis Only (03/11/2024 11:13 AM EDT) RBC, Urine 40-50(A) None Seen, 0-2 /HPF 03/11/2024 3:06 PM EDT [facility] WBC, Urine 20-30(A) None Seen, 0-2 /HPF 03/11/2024 3:06 PM EDT [facility] Squamous Epithelial Cells, Urine 3-5 /HPF 03/11/2024 3:06 PM EDT [facility] Calcium Oxalate Crystals, Urine Moderate /HPF 03/11/2024 3:06 PM EDT [facility] Bacteria, Urine Moderate(A) None Seen /HPF 03/11/2024 3:06 PM EDT [facility] Urine Urine specimen collection, clean catch / Unknown Non-Blood Collection / Unknown 03/11/2024 11:13 AM EDT 03/11/2024 2:45 PM EDT us Frazierkevin [place] [employer] [facility] LAB URINE ORDERABLES Final R esult Performing Organization Address [facility] Co de Phone Number [facility] [address] [address], [place] [phone] * (ABNORMAL) Urine Culture, Routine (03/11/2024 11:13 AM EDT) Urine Culture >100,000 CFU/mL Pseudomonas aeruginosa(A) MINIMUM INHIBITORY CONCENTRATION ([place]) 03/15/2024 8:12 AM EDT [facility] Urine Urine specimen collection, clean [...] values in mcg/mL . us Lidia Barry DESIGN PRINTER [facility] LAB MICROBIOLOGY - GENERAL O RDERABLES Final Result Performing Organization Address [facility] Co de Phone Number [facility] [address] [address], [place] [phone] * Lactic Acid, Plasma (03/11/2024 11:13 AM EDT) Lactic Acid 0.8 0.5 - 2.0 mmol/L 03/11/2024 3:02 PM EDT [facility] Blood Structure of peripheral vein / Unknown 03/11/2024 11:13 AM EDT 03/11/2024 2:40 PM EDT us Lidia [facility] LAB BLOOD ORDERABLES Final R esult Performing Organization Address [facility]/ZIP Co de Phone Number [facility] [address] [address], [place] [phone] * Magnesium (03/11/2024 11:13 AM EDT) MG 1.8 1.5 - 2.5 mg/dL 03/11/2024 3:03 PM EDT [facility] Blood Structure of peripheral vein / Unknown Venipuncture / Unknown 03/11/2024 11:13 AM EDT 03/11/2024 2:34 PM EDT us Lidia [facility] [facility] LAB BLOOD ORDERABLES Final R esult Performing Organization Address [facility] Co de Phone Number [facility] [address] [address], [place] [phone] * (ABNORMAL) Comprehensive Metabolic Panel (03/11/2024 11:13 AM EDT) NA 136 136 - 145 mmol/L 03/11/2024 3:03 PM EDT [facility] K 3.7 3.5 - 5.1 mmol/L 03/11/2024 3:03 PM EDT [facility] Cl 101 98 - 109 mmol/L 03/11/2024 3:03 PM EDT [facility] CO2 24 23 - 32 mmol/L 03/11/2024 3:03 PM EDT [facility] Anion Gap 15 >=0 03/11/2024 3:03 PM EDT [facility] Glucose 123(H) 60 - 99 mg/dL 03/11/2024 3:03 PM EDT [facility] Creatinine 1.26(H) 0.50 - 1.12 mg/dL 03/11/2024 3:03 PM EDT [facility] Calcium 8.9 8.4 - 10.4 mg/dL 03/11/2024 3:03 PM EDT [facility] Total Protein 5.6(L) 6.6 - 8.7 g/dL 03/11/2024 3:03 PM EDT [facility] Albumin 3.2(L) 3.5 - 5.0 g/dL 03/11/2024 3:03 PM EDT [facility] Bilirubin, Total 0.5 0.2 - 1.2 mg/dL 03/11/2024 3:03 PM EDT [facility] Alkaline Phosphatase 103 40 - 129 U/L 03/11/2024 3:03 PM EDT [facility] AST 73(H) 0 - 40 U/L 03/11/2024 3:03 PM EDT [facility] ALT 73(H) <=41 U/L 03/11/2024 3:03 PM EDT [facility] BUN 16 8 - 23 mg/dL 03/11/2024 3:03 PM EDT [facility] eGFR 56(L) >=60 mL/min/1. 73m2 03/11/2024 3:03 PM EDT [facility] Comment:The estimated glomer ular [...] - 4.2 g/dL 03/11/2024 3:03 PM EDT [facility] A/G Ratio 1.3(L) 1.5 - 3.0 03/11/2024 3:03 PM T [facility] Blood Structure of peripheral vein / Unknown Venipuncture / Unknown 03/11/2024 11:13 AM EDT 03/11/2024 2:34 PM EDT Lidia Barry DESIGN PRINTER [facility] LAB BLOOD ORDERABLES Final R esult [facility] [address] [facility] [address] [place] [address], [place] [phone] * (ABNORMAL) CBC Auto Differential (03/11/2024 11:13 AM EDT) WBC 8.5 4.8 - 10.8 10*3/uL 03/11/2024 2:44 PM EDT [facility] RBC 3.04(L) 4.70 - 6.10 10*6/uL 03/11/2024 2:44 PM EDT [facility] Hemoglobin 8.6(L) 13.7 - 16.5 g/dL 03/11/2024 2:44 PM EDT [facility] Hematocrit 26.1(L) 40.5 - 48.5 % 03/11/2024 2:44 PM EDT [facility] MCV 85.9 80.0 - 94.0 fL 03/11/2024 2:44 PM EDT [facility] MCH 28.3 26.0 - 34.0 pg 03/11/2024 2:44 PM EDT [facility] MCHC 33.0 31.0 - 36.0 g/dL 03/11/2024 2:44 PM EDT [facility] RDW 14.9 12.0 - 15.0 % 03/11/2024 2:44 PM EDT [facility] RDW Standard Deviation 47.3(H) 35.1 - 43.9 fL 03/11/2024 2:44 PM EDT [facility] Platelets 131(L) 140 - 440 10*3/uL 03/11/2024 2:44 PM EDT [facility] MPV 10.6 9.4 - 12.4 fL 03/11/2024 2:44 PM EDT [facility] Neutrophil % 65.2 50.0 - 75.0 % 03/11/2024 2:44 PM EDT [facility] Immature Grans % 0.4 0.0 - 0.9 % 03/11/2024 2:44 PM EDT [facility] Lymphocyte % 20.9 20.0 - 44.0 % 03/11/2024 2:44 PM EDT [facility] Monocyte % 10.9 0.0 - 14.0 % 03/11/2024 2:44 PM EDT [facility] Eosinophil % 2.2 0.0 - 5.0 % 03/11/2024 2:44 PM EDT [facility] Basophil % 0.4 0.0 - 2.0 % 03/11/2024 2:44 PM EDT [facility] Neutrophil # 5.51 1.80 - 7.70 10*3/uL 03/11/2024 2:44 PM EDT [facility] Immature Grans # 0.03 0.00 - 0.03 10*3/uL 03/11/2024 2:44 PM EDT [facility] Lymphocyte # 1.80 1.00 - 4.75 10*3/uL 03/11/2024 2:44 PM EDT [facility] Monocyte # 0.90 0.00 - 6.00 10*3/uL 03/11/2024 2:44 PM EDT [facility] Eosinophil # 0.20 0.00 - 0.80 10*3/uL 03/11/2024 2:44 PM EDT [facility] Basophil # <0.03 0.00 - 0.20 10*3/uL 03/11/2024 2:44 PM EDT [facility] nRBC % 0.0 0 - 0 /100 WBCs 03/11/2024 2:44 PM EDT [facility] nRBC # <0.01 0.00 - 0.13 10*3/uL 03/11/2024 2:44 PM EDT [facility] Blood Structure of peripheral vein / Unknown Venipuncture / Unknown 03/11/2024 11:13 AM EDT 03/11/2024 2:34 PM EDT [facility] [employer] [facility] LAB BLOOD ORDERABLES Final R esult Performing Organization Address [facility]/ZIP Co de Phone Number [facility] [address] [address], [place] [phone] * Barcenas Top, Urine (03/11/2024 11:13 AM EDT) Extra Tube Hold for add-ons. 03/11/2024 4:05 PM EDT [facility] Comment:Auto resulted. Urine Urine specimen collection, clean catch / Unknown Non-Blood Collection / Unknown 03/11/2024 11:13 AM EDT 03/11/2024 2:30 PM EDT [facility] [employer] [facility] LAB URINE ORDERABLES Final R esult Performing Organization Address [facility] Co de Phone Number [facility] [address] [address], [place] [phone] * (ABNORMAL) Urinalysis W/Reflex to Microscopic & Culture (03/11/2024 11:13 AM EDT) Color, Urine Dark Yellow Yellow 03/11/2024 2:45 PM EDT [facility] Clarity, Urine Turbid(A) Clear 03/11/2024 2:45 PM EDT [facility] Specific [place], Urine 1.020 1.005 - 1.030 03/11/2024 2:45 PM EDT [facility] pH, Urine 5.5 5.0 - 8.0 03/11/2024 2:45 PM EDT [facility] Protein, Urine 100(A) Negative mg/dL 03/11/2024 2:45 PM EDT [facility] Glucose, Urine Negative Negative mg/dL 03/11/2024 2:45 PM EDT [facility] Ketones, Urine Trace(A) Negative mg/dL 03/11/2024 2:45 PM EDT [facility] Bilirubin, Urine Negative Negative 03/11/2024 2:45 PM EDT [facility] Blood, Urine Large(A) Negative 03/11/2024 2:45 PM EDT [facility] Nitrite, Urine Positive(A) Negative 03/11/2024 2:45 PM EDT [facility] Urobilinogen, Urine 1.0 0.2 - 1.0 E.U./dL 03/11/2024 2:45 PM EDT [facility] Leukocyte Esterase, Urine Moderate(A) Negative 03/11/2024 2:45 PM EDT [facility] Urine Urine specimen collection, clean catch / Unknown Non-Blood Collection / Unknown 03/11/2024 11:13 AM EDT 03/11/2024 2:30 PM EDT us Lidia Barry LAB URINE ORDERABLES Final R esult Performing Organization Address City/State/[facility] Co de Phone Number [facility] [address] [facility] [address] [place] [address], [place] [phone] documented in this encounter Visit Diagnoses Diagnosis [...] as of this encounter Care Teams Painting Worker Relationship Specialty Start Date End Date Uday Sheehan [address] [place] [address] [place] [id number] PCP - General Internal Medicine 03/27/24 documented as of this encounter
--- OUTSIDE RECORDS SUMMARY | 2024-11-14 14:08 | XMS_ITS | Encounter Summary ---
Author Organization [facility] Address [address] [place] [address] Care Team Providers Care Linoleum Floor Installer Name Role Phone Uday Sheehan Primary Care Provider [phone] Encounter Details Date Type Department Care Team (Late st Contact Info) Description 03/12/2024 Lab Requisition [facility] Lab [address] [place] [address] Valarie Pierson MD [address] [place] [address] Acute and chronic respiratory failure with hypoxia; [...] Date/Time Associated Diagnosis Comments RESPIRATORY PANEL PLUS, RADIOLOGIC TECHNOLOGY TEACHER SWAB ([facility]) Routine 03/12/2024 9:35 AM EDT Acute and [...] negative HIV tests. * Respiratory Panel w/Sars-CoV-2, RADIOLOGIC TECHNOLOGY TEACHER Swab - [place] only (03/12/2024 9:35 AM EDT) Adenovirus DNA (PCR) Not Detected Not Detected QIAGEN QIASTAT-D X 03/12/2024 11:56 AM EDT [facility] Human Coronavirus 229E RNA (PCR) Not Detected Not Detected QIAGEN QIASTAT-D X 03/12/2024 11:56 AM EDT [facility] Human Coronavirus HKU1 RNA (PCR) Not Detected Not Detected QIAGEN QIASTAT-D X 03/12/2024 11:56 AM EDT [facility] Human Coronavirus NL63 RNA (PCR) Not Detected Not Detected QIAGEN QIASTAT-D X 03/12/2024 11:56 AM EDT [facility] Human Coronavirus OC43 RNA (PCR) Not Detected Not Detected QIAGEN QIASTAT-D X 03/12/2024 11:56 AM EDT [facility] Human Metapneumovirus RNA (PCR) Not Detected Not Detected QIAGEN QIASTAT-D X 03/12/2024 11:56 AM EDT [facility] Influenza A RNA (PCR) Not Detected Not Detected QIAGEN QIASTAT-D X 03/12/2024 11:56 AM EDT [facility] Influenza A H1 RNA (PCR) Not Detected Not Detected QIAGEN QIASTAT-D X 03/12/2024 11:56 AM EDT [facility] Influenza A H3 RNA (PCR) Not Detected Not Detected QIAGEN QIASTAT-D X 03/12/2024 11:56 AM EDT [facility] Influenza A H1N1 RNA (PCR) Not Detected Not Detected QIAGEN QIASTAT-D X 03/12/2024 11:56 AM EDT [facility] Influenza B RNA (PCR) Not Detected Not Detected QIAGEN QIASTAT-D X 03/12/2024 11:56 AM EDT [facility] Parainfluenza 1 RNA (PCR) Not Detected Not Detected QIAGEN QIASTAT-D X 03/12/2024 11:56 AM EDT [facility] Parainfluenza 2 RNA (PCR) Not Detected Not Detected QIAGEN QIASTAT-D X 03/12/2024 11:56 AM EDT [facility] Parainfluenza 3 RNA (PCR) Not Detected Not Detected QIAGEN QIASTAT-D X 03/12/2024 11:56 AM EDT [facility] Parainfluenza 4 RNA (PCR) Not Detected Not Detected QIAGEN QIASTAT-D X 03/12/2024 11:56 AM EDT [facility] Human Rhinovirus/Enterov irus RNA (PCR) Not Detected Not Detected QIAGEN QIASTAT-D X 03/12/2024 11:56 AM EDT [facility] RSV RNA (PCR) Not Detected Not Detected QIAGEN QIASTAT-D X 03/12/2024 11:56 AM EDT [facility] SARS CoV-2 RNA (PCR) Not Detected Not Detected QIAGEN QIASTAT-D X 03/12/2024 11:56 AM EDT [facility] Bordetella pertussis DNA (PCR) Not Detected Not Detected QIAGEN QIASTAT-D X 03/12/2024 11:56 AM EDT [facility] Chlamydophila pneumoniae DNA (PCR) Not Detected Not Detected QIAGEN QIASTAT-D X 03/12/2024 11:56 AM EDT [facility] Mycoplasma pneumoniae DNA (PCR) Not Detected Not Detected QIAGEN QIASTAT-D X 03/12/2024 11:56 AM EDT [facility] Nasopharyngeal Swab Specimen from nasopharyngeal structure / Unknown 03/12/2024 9:35 AM EDT 03/12/2024 9:58 AM EDT Narrative [facility] - 03/12/2024 11:56 AM EDT [...] FLUIDS AND STOOLS ORD ERABLES Final Result [facility] [address] [facility] [address] [place] [address], * Methicillin Resistant Staphylococcus aureus (MRSA) Culture Screen (03/12/2024 9:35 AM EDT) MRSA Culture No methicillin resistant Staphylococcus aureus (MRSA) isolated. [facility] MANUAL 03/14/2024 7:25 AM EDT [facility] Swab Nasal structure / Unknown 03/12/2024 9:35 AM EDT 03/12/2024 9:58 AM EDT Valarie Pierson MD LAB MICROBIOLOGY - GENERAL ORD ERABLES Final Result [facility] [address] [place] [address] [address] [place] [address], * (ABNORMAL) CBC Auto Differential (03/12/2024 9:35 AM EDT) WBC 7.1 4.8 - 10.8 10*3/uL 03/12/2024 10:00 AM EDT [facility] RBC 3.25(L) 4.70 - 6.10 10*6/uL 03/12/2024 10:00 AM EDT [facility] Hemoglobin 9.2(L) 13.7 - 16.5 g/dL 03/12/2024 10:00 AM EDT [facility] Hematocrit 28.1(L) 40.5 - 48.5 % 03/12/2024 10:00 AM EDT [facility] MCV 86.5 80.0 - 94.0 fL 03/12/2024 10:00 AM EDT [facility] MCH 28.3 26.0 - 34.0 pg 03/12/2024 10:00 AM EDT [facility] MCHC 32.7 31.0 - 36.0 g/dL 03/12/2024 10:00 AM EDT [facility] RDW 15.0 12.0 - 15.0 % 03/12/2024 10:00 AM EDT [facility] RDW Standard Deviation 47.8(H) 35.1 - 43.9 fL 03/12/2024 10:00 AM EDT [facility] Platelets 124(L) 140 - 440 10*3/uL 03/12/2024 10:00 AM EDT [facility] MPV 10.6 9.4 - 12.4 fL 03/12/2024 10:00 AM EDT [facility] Neutrophil % 56.8 50.0 - 75.0 % 03/12/2024 10:00 AM EDT [facility] Immature Grans % 0.3 0.0 - 0.9 % 03/12/2024 10:00 AM EDT [facility] Lymphocyte % 27.0 20.0 - 44.0 % 03/12/2024 10:00 AM EDT [facility] Monocyte % 11.5 0.0 - 14.0 % 03/12/2024 10:00 AM EDT [facility] Eosinophil % 3.8 0.0 - 5.0 % 03/12/2024 10:00 AM EDT [facility] Basophil % 0.6 0.0 - 2.0 % 03/12/2024 10:00 AM EDT [facility] Neutrophil # 4.03 1.80 - 7.70 10*3/uL 03/12/2024 10:00 AM EDT [facility] Immature Grans # <0.03 0.00 - 0.03 10*3/uL 03/12/2024 10:00 AM EDT [facility] Lymphocyte # 1.90 1.00 - 4.75 10*3/uL 03/12/2024 10:00 AM EDT [facility] Monocyte # 0.80 0.00 - 6.00 10*3/uL 03/12/2024 10:00 AM EDT [facility] Eosinophil # 0.30 0.00 - 0.80 10*3/uL 03/12/2024 10:00 AM EDT [facility] Basophil # <0.03 0.00 - 0.20 10*3/uL 03/12/2024 10:00 AM EDT [facility] nRBC % 0.0 0 - 0 /100 WBCs 03/12/2024 10:00 AM EDT [facility] nRBC # <0.01 0.00 - 0.13 10*3/uL 03/12/2024 10:00 AM EDT [facility] Blood Structure of peripheral vein / Unknown 03/12/2024 9:35 AM EDT 03/12/2024 9:35 AM EDT us Valarie Pierson MD LAB BLOOD ORDERABLES Final Res ult Performing Organization Address [facility]/ZIP Co de Phone Number [facility] [address] [address], [place] [phone] * (ABNORMAL) TSH (03/12/2024 9:35 AM EDT) TSH 11.100(H) 0.270 - 4.200 uIU/mL 03/12/2024 10:37 AM EDT [facility] Blood Structure of peripheral vein / Unknown 03/12/2024 9:35 AM EDT 03/12/2024 9:35 AM EDT Valarie Pierson MD LAB BLOOD ORDERABLES Final Res ult Performing Organization Address [facility]/ZIP Co de Phone Number [facility] [address] [address], [place] [phone] * (ABNORMAL) Comprehensive Metabolic Panel (03/12/2024 9:35 AM EDT) NA 137 136 - 145 mmol/L 03/12/2024 10:37 AM EDT [facility] K 3.9 3.5 - 5.1 mmol/L 03/12/2024 10:37 AM EDT [facility] Cl 101 98 - 109 mmol/L 03/12/2024 10:37 AM EDT [facility] CO2 27 23 - 32 mmol/L 03/12/2024 10:37 AM EDT [facility] Anion Gap 13 >=0 03/12/2024 10:37 AM EDT [facility] Glucose 99 60 - 99 mg/dL 03/12/2024 10:37 AM EDT [facility] Creatinine 1.08 0.50 - 1.12 mg/dL 03/12/2024 10:37 AM EDT [facility] Calcium 9.4 8.4 - 10.4 mg/dL 03/12/2024 10:37 AM T [facility] Total Protein 6.6 6.6 - 8.7 g/dL 03/12/2024 10:[address] [facility] Albumin 3.2(L) 3.5 - 5.0 g/dL 03/12/2024 10:37 AM EDT [facility] Bilirubin, Total 0.4 0.2 - 1.2 mg/dL 03/12/2024 10:37 AM T [facility] Alkaline Phosphatase 109 40 - 129 U/L 03/12/2024 10:37 AM T [facility] AST 62(H) 0 - 40 U/L 03/12/2024 10:[address] [facility] ALT 65(H) <=41 U/L 03/12/2024 10:[address] [facility] BUN 14 8 - 23 mg/dL 03/12/2024 10:[address] [facility] eGFR 68 >=60 mL/min/1. 73m2 03/12/2024 10:37 AM T [facility] Comment:The estimated glomer ular filtration [...] - 4.2 g/dL 03/12/2024 10:[address] [facility] A/G Ratio 0.9(L) 1.5 - 3.0 03/12/2024 10:37 AM EDT [facility] Blood Structure of peripheral vein / Unknown 03/12/2024 9:35 AM EDT 03/12/2024 9:35 AM EDT us Valarie Pierson MD LAB BLOOD ORDERABLES Final Res ult [facility] [address] [facility] [address] [place] [address], documented in this encounter Visit Diagnoses Diagnosis [...] documented as of this encounter Care Teams Linoleum Floor Installer Relationship Specialty Start Date End Date Uday Sheehan [address] [place] [address] [place] [address] PCP - General Internal Medicine 03/27/24 documented as of this encounter
--- OUTSIDE RECORDS SUMMARY | 2024-11-14 14:08 | XMS_ITS | Patient Health Record ---
Author Organization [facility] Address [address] [place] [address] Care Team Providers Care Supervisor Wire Rope Fabrication Name Role Phone Pearl Garcia Primary Care Provider Lucila Phillip Unavailable [phone] Reason For Referral No Information Encounters Encounter Location Date Provider Diagnosis [facility] [address] [place] [address] 08/08/2024 Lucila Kapoor Plan Of Treatment No Information Insurance Providers Payer Name Payer Address Payer Phone Subscriber Number Group Number Insured Name Patient Relationship to Insured Coverage Start Date Coverage End Date Medicare National [facility] [address] [place] [address] [id number] [place] i Self - patient is the insured [employer] [address] [place] [address] [id number] [place] i Self - patient is the insured
--- OUTSIDE RECORDS SUMMARY | 2024-11-14 14:08 | XMS_ITS | Encounter Summary ---
Author Organization [facility] Address [address] [place] [address] Care Team Providers Care Bar Machine Operator Name Role Phone Uday Sheehan MD Primary Care Provider [phone] Encounter Details Date Type Department Care Team (Late st Contact Info) Description 08/18/2024 Lab Requisition [facility] [address] [place] [address] Tabby Bledsoe MD [address] [address] Bacteremia Social History Tobacco Use Types Packs/Day [...] LAB CHEMISTRY METHOD 08/19/2024 3:13 PM EST [facility] Potassium 4.0 3.5 - 5.5 mmol/L LAB CHEMISTRY METHOD 08/19/2024 3:13 PM [facility] Chloride 111(H) 96 - 110 mmol/L LAB CHEMISTRY METHOD 08/19/2024 3:13 PM [facility] CO2 25 21 - 32 mmol/L LAB CHEMISTRY METHOD 08/19/2024 3:13 PM [facility] Anion Gap 9 3 - 11 LAB CHEMISTRY METHOD 08/19/2024 3:13 PM [facility] Glucose 90 70 - 100 mg/dL LAB CHEMISTRY METHOD 08/19/2024 3:13 PM [facility] BUN 23 5 - 25 mg/dL LAB CHEMISTRY METHOD 08/19/2024 3:13 PM [facility] Creatinine 1.46(H) 0.70 - 1.30 mg/dL LAB CHEMISTRY METHOD 08/19/2024 3:13 PM [facility] eGFR 47(L) >=60 mL/min/1. 73m2 LAB CHEMISTRY METHOD 08/19/2024 3:13 PM [facility] Comment:Calculation based on the??Chronic Kidney Disease Epidemiology Collaboration (CKD-EPI) equation refit??without adjustment for race. BUN/Creatinine Ratio 15.8 LAB CHEMISTRY METHOD 08/19/2024 3:13 PM [facility] Calcium 8.3(L) 8.5 - 10.5 mg/dL LAB CHEMISTRY METHOD 08/19/2024 3:13 PM [facility] AST (SGOT) 19 10 - 42 unit/L LAB CHEMISTRY METHOD 08/19/2024 3:13 PM [facility] ALT (SGPT) 12 10 - 60 unit/L LAB CHEMISTRY METHOD 08/19/2024 3:13 PM [facility] Alkaline Phosphatase 88 42 - 121 unit/L LAB CHEMISTRY METHOD 08/19/2024 3:13 PM [facility] Total Protein 5.5(L) 6.0 - 8.0 g/dL LAB CHEMISTRY METHOD 08/19/2024 3:13 PM EST [facility] Albumin 1.5(L) 3.2 - 5.0 g/dL LAB CHEMISTRY METHOD 08/19/2024 3:13 PM [facility] Total Bilirubin 0.3 0.0 - 1.4 mg/dL LAB CHEMISTRY METHOD 08/19/2024 3:13 PM [facility] Blood Venous blood specimen / Unknown Venipuncture / Unknown 08/19/2024 8:46 AM EST 08/19/2024 12:22 PM EST us Tabby Bledsoe MD LAB BLOOD ORDERABLES Fin al Result [facility] [address] [place] [address], [place] [phone] * (ABNORMAL) Complete blood count (08/19/2024 8:46 AM EST) WBC 6.3 4.8 - 10.8 K/mcL LAB HEMETOLOGY METHOD 08/19/2024 1:38 PM [facility] RBC 2.80(L) 4.50 - 5.50 M/mcL LAB HEMETOLOGY METHOD 08/19/2024 1:38 PM [facility] Hemoglobin 7.5(L) 13.5 - 17.5 g/dL LAB HEMETOLOGY METHOD 08/19/2024 1:38 PM [facility] Hematocrit 25.6(L) 42.0 - 54.0 % LAB HEMETOLOGY METHOD 08/19/2024 1:38 PM [facility] MCV 92.4 79.0 - 98.0 FL LAB HEMETOLOGY METHOD 08/19/2024 1:38 PM [facility] MCH 27.1 27.0 - 32.0 pcg LAB HEMETOLOGY METHOD 08/19/2024 1:38 PM [facility] MCHC 29.3(L) 32.0 - 37.0 g/dL LAB HEMETOLOGY METHOD 08/19/2024 1:38 PM EST [facility] RDW 19.2(H) 11.0 - 15.0 % LAB HEMETOLOGY METHOD 08/19/2024 1:38 PM [facility] Platelets 289 130 - 400 K/mcL LAB HEMETOLOGY METHOD 08/19/2024 1:38 PM [facility] MPV 9.1 7.0 - 11.0 FL LAB HEMETOLOGY METHOD 08/19/2024 1:38 PM [facility] NRBC 0.0 <1.0 % LAB HEMETOLOGY METHOD 08/19/2024 1:38 PM [facility] NRBC Absolute 0.00 <0.10 K/mcL LAB HEMETOLOGY METHOD 08/19/2024 1:38 PM [facility] Blood Venous blood specimen / Unknown Venipuncture / Unknown 08/19/2024 8:46 AM EST 08/19/2024 12:22 PM EST Tabby Bledsoe MD LAB BLOOD ORDERABLES Fin al Result [facility] [address] [place] [address], documented in this encounter Visit Diagnoses Diagnosis Bacteremia documented in this encounter Additional Health Concerns Infection Onset 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
--- OUTSIDE RECORDS SUMMARY | 2024-11-14 14:08 | XMS_ITS | Encounter Summary ---
Author Organization [facility] Address [address] [place] [address] Care Team Providers Care Slip Cover Seamstress Name Role Phone Uday Sheehan Primary Care Provider [phone] Encounter Details Date Type Department Care Team (Late st Contact Info) Description 03/08/2024 Lab Requisition [facility] Lab [address] [place] [address] Lidia Barry, CB [address] [place] [address] Acute respiratory failure with hypoxia; No diagnosis [...] SHIGA TOXIN ANTIGENS (LAB ONLY REFLEX) - [facility] Routine 03/08/2024 9:28 AM EDT [...] Shiga Toxin Antigens (Lab only Reflex) - [facility] (03/08/2024 9:28 AM EDT) [facility] Toxin 1 Negative Negative [facility] MANUAL 03/09/2024 9:37 AM EDT [facility] Toxin 2 Negative Negative [facility] MANUAL 03/09/2024 9:37 AM EDT [facility] Stool Rectal route / Unknown Non-Blood Collection / Unknown 03/08/2024 9:28 AM EDT 03/08/2024 9:28 AM EDT us Lidia Barry LEGAL OFFICER LAB MICROBIOLOGY - GENERAL O RDERABLES Final Result Performing Organization Address [facility] Co de Phone Number [facility] [address] [place] [address] [address] [place] [address], [place] [phone] * Stool Culture (03/08/2024 9:28 AM EDT) Pathologist [facility] Stool Culture Normal stool nohemi: no E. coli O157, Salmonella, Shigella, or Campylobacter isolated [facility] MANUAL 03/11/2024 8:47 AM EDT [facility] Stool Rectal route / Unknown Non-Blood Collection / Unknown 03/08/2024 9:28 AM EDT 03/08/2024 9:28 AM EDT us Lidia Barry LEGAL OFFICER LAB MICROBIOLOGY - GENERAL O RDERABLES Final Result [facility] [address] [facility] [address] [place] [address], * (ABNORMAL) CBC Auto Differential (03/08/2024 9:28 AM EDT) WBC 9.4 4.8 - 10.8 10*3/uL 03/08/2024 9:58 AM EDT [facility] RBC 3.27(L) 4.70 - 6.10 10*6/uL 03/08/2024 9:58 AM EDT [facility] Hemoglobin 9.1(L) 13.7 - 16.5 g/dL 03/08/2024 9:58 AM EDT [facility] Hematocrit 28.1(L) 40.5 - 48.5 % 03/08/2024 9:58 AM EDT [facility] MCV 85.9 80.0 - 94.0 fL 03/08/2024 9:58 AM EDT [facility] MCH 27.8 26.0 - 34.0 pg 03/08/2024 9:58 AM EDT [facility] MCHC 32.4 31.0 - 36.0 g/dL 03/08/2024 9:58 AM EDT [facility] RDW 15.4(H) 12.0 - 15.0 % 03/08/2024 9:58 AM EDT [facility] RDW Standard Deviation 48.1(H) 35.1 - 43.9 fL 03/08/2024 9:58 AM EDT [facility] Platelets 144 140 - 440 10*3/uL 03/08/2024 9:58 AM EDT [facility] MPV 10.9 9.4 - 12.4 fL 03/08/2024 9:58 AM EDT [facility] Neutrophil % 58.0 50.0 - 75.0 % 03/08/2024 9:58 AM EDT [facility] Immature Grans % 0.6 0.0 - 0.9 % 03/08/2024 9:58 AM EDT [facility] Lymphocyte % 26.8 20.0 - 44.0 % 03/08/2024 9:58 AM EDT [facility] Monocyte % 8.6 0.0 - 14.0 % 03/08/2024 9:58 AM EDT [facility] Eosinophil % 5.7(H) 0.0 - 5.0 % 03/08/2024 9:58 AM EDT [facility] Basophil % 0.3 0.0 - 2.0 % 03/08/2024 9:58 AM EDT [facility] Neutrophil # 5.44 1.80 - 7.70 10*3/uL 03/08/2024 9:58 AM EDT [facility] Immature Grans # 0.06(H) 0.00 - 0.03 10*3/uL 03/08/2024 9:58 AM EDT [facility] Lymphocyte # 2.50 1.00 - 4.75 10*3/uL 03/08/2024 9:58 AM EDT [facility] Monocyte # 0.80 0.00 - 6.00 10*3/uL 03/08/2024 9:58 AM EDT [facility] Eosinophil # 0.50 0.00 - 0.80 10*3/uL 03/08/2024 9:58 AM EDT [facility] Basophil # <0.03 0.00 - 0.20 10*3/uL 03/08/2024 9:58 AM EDT [facility] nRBC % 0.0 0 - 0 /100 WBCs 03/08/2024 9:58 AM EDT [facility] nRBC # <0.01 0.00 - 0.13 10*3/uL 03/08/2024 9:58 AM EDT [facility] Blood Structure of peripheral vein / Unknown Venipuncture / Unknown 03/08/2024 9:28 AM EDT 03/08/2024 9:28 AM EDT us Lidia Barry NP LAB BLOOD ORDERABLES Final R esult Performing Organization Address City/State/[facility] Co de Phone Number [facility] [address] [address], [place] [phone] * Magnesium (03/08/2024 9:28 AM EDT) MG 1.8 1.5 - 2.5 mg/dL 03/08/2024 10:10 AM EDT [facility] Blood Structure of peripheral vein / Unknown Venipuncture / Unknown 03/08/2024 9:28 AM EDT 03/08/2024 9:28 AM EDT Lidia Barry LEGAL OFFICER LAB BLOOD ORDERABLES Final R esult Performing Organization Address [facility] Co de Phone Number [facility] [address] [address], [place] [phone] * (ABNORMAL) Comprehensive Metabolic Panel (03/08/2024 9:28 AM EDT) NA 138 136 - 145 mmol/L 03/08/2024 10:10 AM EDT [facility] K 3.8 3.5 - 5.1 mmol/L 03/08/2024 10:10 AM EDT [facility] Cl 104 98 - 109 mmol/L 03/08/2024 10:10 AM EDT [facility] CO2 23 23 - 32 mmol/L 03/08/2024 10:10 AM EDT [facility] Anion Gap 15 >=0 03/08/2024 10:10 AM EDT [facility] Glucose 107(H) 60 - 99 mg/dL 03/08/2024 10:10 AM EDT [facility] Creatinine 1.20(H) 0.50 - 1.12 mg/dL 03/08/2024 10:10 AM EDT [facility] Calcium 9.1 8.4 - 10.4 mg/dL 03/08/2024 10:10 AM EDT [facility] Total Protein 6.5(L) 6.6 - 8.7 g/dL 03/08/2024 10:10 AM EDT [facility] Albumin 3.2(L) 3.5 - 5.0 g/dL 03/08/2024 10:10 AM EDT [facility] Bilirubin, Total 0.5 0.2 - 1.2 mg/dL 03/08/2024 10:10 AM EDT [facility] Alkaline Phosphatase 111 40 - 129 U/L 03/08/2024 10:10 AM EDT [facility] AST 29 0 - 40 U/L 03/08/2024 10:10 AM EDT [facility] ALT 34 <=41 U/L 03/08/2024 10:10 AM EDT [facility] BUN 27(H) 8 - 23 mg/dL 03/08/2024 10:10 AM EDT [facility] eGFR 60 >=60 mL/min/1. 73m2 03/08/2024 10:10 AM EDT [facility] Comment:The estimated glomer [...] - 4.2 g/dL 03/08/2024 10:10 AM EDT [facility] A/G Ratio 1.0(L) 1.5 - 3.0 03/08/2024 10:10 AM EDT [facility] Blood Structure of peripheral vein / Unknown Venipuncture / Unknown 03/08/2024 9:28 AM EDT 03/08/2024 9:28 AM EDT us Lidia [place] LEGAL OFFICER LAB BLOOD ORDERABLES Final R esult [facility] [address] [place] [address], documented in this encounter Visit Diagnoses Diagnosis [...] documented as of this encounter Care Teams Slip Cover Seamstress Relationship Specialty Start Date End Date Uday Sheehan [address] [place] [address] [place] [id number] PCP - General Internal Medicine 03/27/24 documented as of this encounter
--- OUTSIDE RECORDS SUMMARY | 2024-11-14 14:08 | XMS_ITS | Encounter Summary ---
Author Organization [facility] Address [address] [place] [address] Care Team Providers Care Electroencephalograph Technician Name Role Phone Uday Sheehan MD Primary Care Provider [phone] Encounter Details Date Type Department Care Team (Late st Contact Info) Description 10/27/2024 Lab Requisition [facility] [address] [facility] [place] [address] Tabby Bledsoe MD [address] [address] Bacteremia Social History Tobacco Use Types Packs/Day [...] documented as of this encounter Care Teams Electroencephalograph Technician Relationship Specialty Start Date End Date Uday Sheehan MD [address] [place] [address] PCP - General Tours Captain 12/19/16 documented as of this encounter
--- OUTSIDE RECORDS SUMMARY | 2024-11-14 14:08 | XMS_ITS | Encounter Summary ---
Author Organization [facility] Address [address] [place] [address] Care Team Providers Care Bomb Squad Commander Name Role Phone Uday Sheehan Primary Care Provider [phone] Encounter Details Date Type Department Care Team (Late st Contact Info) Description 03/11/2024 Lab Requisition [facility] [address] [place] [address] [phone] Valarie Pierson MD [address] [place] [id number] Acute and chronic respiratory failure with hypoxia; [...] documented as of this encounter Care Teams Bomb Squad Commander Relationship Specialty Start Date End Date Uday Sheehan [address] [place] [address] dr Donna Thompson, ALEC [address] PCP - General Internal Medicine 03/27/24 documented as of this encounter
--- OUTSIDE RECORDS SUMMARY | 2024-11-14 14:08 | XMS_ITS | Encounter Summary ---
Author Organization [facility] Address [address] [place] [address] Care Team Providers Care Yarn Twister Name Role Phone Uday Sheehan MD Primary Care Provider [phone] Encounter Details Date Type Department Care Team (Late st Contact Info) Description 08/28/2024 Lab Requisition [facility] - Main Lab [address] [place] [address] Tabby Bledsoe MD [address] [address] Anemia, unspecified Social History Tobacco Use Types [...] AM EST) WBC 6.4 4.8 - 10.8 K/[facility] LAB HEMETOLOGY METHOD 08/29/2024 11:12 AM EST [facility] LAB RBC 2.50(L) 4.50 - 5.50 M/[facility] LAB HEMETOLOGY METHOD 08/29/2024 11:12 AM EST [facility] LAB Hemoglobin 6.6(L) 13.5 - 17.5 g/dL LAB HEMETOLOGY METHOD 08/29/2024 11:12 AM [facility] LAB Hematocrit 22.9(L) 42.0 - 54.0 % LAB HEMETOLOGY METHOD 08/29/2024 11:12 AM [facility] LAB MCV 93.5 79.0 - 98.0 FL LAB HEMETOLOGY METHOD 08/29/2024 11:12 AM [facility] LAB MCH 26.9(L) 27.0 - 32.0 pcg LAB HEMETOLOGY METHOD 08/29/2024 11:12 AM [facility] LAB MCHC 28.8(L) 32.0 - 37.0 g/dL LAB HEMETOLOGY METHOD 08/29/2024 11:12 AM [facility] LAB RDW 18.0(H) 11.0 - 15.0 % LAB HEMETOLOGY METHOD 08/29/2024 11:12 AM [facility] LAB Platelets 292 130 - 400 K/mcL LAB HEMETOLOGY METHOD 08/29/2024 11:12 AM [facility] LAB MPV 9.3 7.0 - 11.0 FL LAB HEMETOLOGY METHOD 08/29/2024 11:12 AM [facility] LAB NRBC 0.0 <1.0 % LAB HEMETOLOGY METHOD 08/29/2024 11:12 AM [facility] LAB NRBC Absolute 0.00 <0.10 K/mcL LAB HEMETOLOGY METHOD 08/29/2024 11:12 AM [facility] LAB Blood Venous blood specimen / Unknown Venipuncture / Unknown 08/29/2024 5:17 AM EST 08/29/2024 10:46 AM EST us Tabby Bledsoe MD LAB BLOOD ORDERABLES Fin al Result [facility] [address] [place] [address], documented in this encounter Visit Diagnoses Diagnosis Anemia, unspecified documented in this encounter Additional Health Concerns Infection Onset Date Last Indicated Resolved Time ESBL 06/22/2024 06/22/2024 documented as of this encounter Care Teams Yarn Twister Relationship Specialty Start Date End Date Uday Sheehan MD [address] [place] [address] Dr Mast Forest MD PCP - General Picked Edge Sewing Machine Operator 12/19/16 documented as of this encounter
--- OUTSIDE RECORDS SUMMARY | 2024-11-14 14:08 | XMS_ITS | Encounter Summary ---
Author Organization [facility] Address [address] [place] [address] Phone Care Team Providers Care Solutions Executive Cloud Sales Name Role Phone Uday Sheehan MD Primary Care Provider [phone] Encounter Details Date Type Department Care Team (Late st Contact Info) Description 04/11/2022 Documentation Only [facility] [address] [place] [address] Adi Jaeger MD [address] [place] [address] [place] [address] Social History Tobacco Use Types [...] on filedocumented in this encounter Care Teams Solutions Executive Cloud Sales Relationship Specialty Start Date End Date Uday Sheehan MD [address] [place] [address] [address] ALEC RING PCP - General 05/14/19 documented as of this encounter
--- OUTSIDE RECORDS SUMMARY | 2024-11-14 14:08 | XMS_ITS | Encounter Summary ---
Author Organization [facility] Address [address] [place] [address] Care Team Providers Care It Program Manager Name Role Phone Uday Sheehan MD Primary Care Provider [phone] Encounter Details Date Type Department Care Team (Late st Contact Info) Description 10/12/2024 Lab Requisition [facility] - Main Lab [address] [place] [address] Tabby Bledsoe MD [address] [address] Bacteremia Social History Tobacco Use Types Packs/Day [...] LAB CHEMISTRY METHOD 10/14/2024 1:24 PM EDT [facility] LAB Potassium 4.1 3.5 - 5.5 [...] LAB CHEMISTRY METHOD 10/14/2024 1:24 PM EDT [facility] LAB Albumin 1.5(L) 3.2 - 5.0 g/dL LAB CHEMISTRY METHOD 10/14/2024 1:24 PM EDT [facility] LAB Total Bilirubin 0.3 0.0 - 1.4 mg/dL LAB CHEMISTRY METHOD 10/14/2024 1:24 PM EDT [facility] LAB Blood Venous blood specimen / Unknown Venipuncture / Unknown 10/14/2024 7:07 AM EDT 10/14/2024 10:10 AM EDT us Tabby Bledsoe MD LAB BLOOD ORDERABLES Fin al Result [facility] LAB [address] [place] [address], * (ABNORMAL) Complete blood count (10/14/2024 7:07 [...] LAB HEMETOLOGY METHOD 10/14/2024 11:11 AM EDT [facility] LAB MCHC 29.0(L) 32.0 - 37.0 g/dL LAB HEMETOLOGY METHOD 10/14/2024 11:11 AM EDT [facility] LAB RDW 16.8(H) 11.0 - 15.0 % LAB HEMETOLOGY METHOD 10/14/2024 11:11 AM EDT [facility] LAB Platelets 218 130 - 400 K/mcL LAB HEMETOLOGY METHOD 10/14/2024 11:11 AM EDT [facility] LAB MPV 9.7 7.0 - 11.0 FL LAB HEMETOLOGY METHOD 10/14/2024 11:11 AM EDT [facility] LAB NRBC 0.0 <1.0 % LAB HEMETOLOGY METHOD 10/14/2024 11:11 AM EDT [facility] LAB NRBC Absolute 0.00 <0.10 K/mcL LAB HEMETOLOGY METHOD 10/14/2024 11:11 AM T [facility] LAB Blood Venous blood specimen / Unknown Venipuncture / Unknown 10/14/2024 7:07 AM EDT 10/14/2024 10:10 AM EDT us Tabby Bledsoe MD LAB BLOOD ORDERABLES Fin al Result [facility] LAB [address] [place] [address], documented in this encounter Visit Diagnoses Diagnosis Bacteremia documented in this encounter Additional Health Concerns Infection Onset Date Last Indicated Resolved Time ESBL 06/22/2024 06/22/2024 documented as of this encounter Care Teams It Program Manager Relationship Specialty Start Date End Date Uday Sheehan MD [address] [facility] [address] Donna [place] PCP - General Payroll Director 12/19/16 documented as of this encounter
--- OUTSIDE RECORDS SUMMARY | 2024-11-14 14:08 | XMS_ITS | Encounter Summary ---
Author Organization [facility] Address [address] [place] [address] Care Team Providers Care Retail Sales Manager Name Role Phone Uday Sheehan Primary Care Provider [phone] Encounter Details Date Type Department Care Team (Late st Contact Info) Description 03/15/2024 Lab Requisition [facility] Lab [address] [place] [address] Lidia Barry, CB [address] [place] [address] Acute and chronic respiratory failure with hypoxia; [...] - 10.8 10*3/uL 03/15/2024 9:07 AM EDT [facility] RBC 3.05(L) 4.70 - 6.10 10*6/uL 03/15/2024 9:07 AM EDT [facility] Hemoglobin 8.5(L) 13.7 - 16.5 g/dL 03/15/2024 9:07 AM EDT [facility] Hematocrit 26.2(L) 40.5 - 48.5 % 03/15/2024 9:07 AM EDT [facility] MCV 85.9 80.0 - 94.0 fL 03/15/2024 9:07 AM EDT [facility] MCH 27.9 26.0 - 34.0 pg 03/15/2024 9:07 AM EDT [facility] MCHC 32.4 31.0 - 36.0 g/dL 03/15/2024 9:07 AM EDT [facility] RDW 15.2(H) 12.0 - 15.0 % 03/15/2024 9:07 AM EDT [facility] RDW Standard Deviation 47.7(H) 35.1 - 43.9 fL 03/15/2024 9:07 AM EDT [facility] Platelets 149 140 - 440 10*3/uL 03/15/2024 9:07 AM EDT [facility] MPV 10.3 9.4 - 12.4 fL 03/15/2024 9:07 AM EDT [facility] Neutrophil % 59.2 50.0 - 75.0 % 03/15/2024 9:07 AM EDT [facility] Immature Grans % 0.4 0.0 - 0.9 % 03/15/2024 9:07 AM EDT [facility] Lymphocyte % 24.8 20.0 - 44.0 % 03/15/2024 9:07 AM EDT [facility] Monocyte % 10.9 0.0 - 14.0 % 03/15/2024 9:07 AM EDT [facility] Eosinophil % 4.1 0.0 - 5.0 % 03/15/2024 9:07 AM EDT [facility] Basophil % 0.6 0.0 - 2.0 % 03/15/2024 9:07 AM EDT [facility] Neutrophil # 4.23 1.80 - 7.70 10*3/uL 03/15/2024 9:07 AM EDT [facility] Immature Grans # 0.03 0.00 - 0.03 10*3/uL 03/15/2024 9:07 AM EDT [facility] Lymphocyte # 1.80 1.00 - 4.75 10*3/uL 03/15/2024 9:07 AM EDT [facility] Monocyte # 0.80 0.00 - 6.00 10*3/uL 03/15/2024 9:07 AM EDT [facility] Eosinophil # 0.30 0.00 - 0.80 10*3/uL 03/15/2024 9:07 AM EDT [facility] Basophil # <0.03 0.00 - 0.20 10*3/uL 03/15/2024 9:07 AM EDT [facility] nRBC % 0.0 0 - 0 /100 WBCs 03/15/2024 9:07 AM EDT [facility] nRBC # <0.01 0.00 - 0.13 10*3/uL 03/15/2024 9:07 AM EDT [facility] Blood Structure of peripheral vein / Unknown 03/15/2024 8:31 AM EDT 03/15/2024 8:31 AM EDT [facility] BAND LOG MILL AND CARRIAGE OPERATOR LAB BLOOD ORDERABLES Final R esult Performing Organization Address City/[facility]/ZIP Co de Phone Number [facility] [address] [address], [place] [phone] * Ammonia (03/15/2024 8:31 AM EDT) Ammonia 17 16 - 60 umol/L 03/15/2024 8:55 AM EDT [facility] Blood Structure of peripheral vein / Unknown 03/15/2024 8:31 AM EDT 03/15/2024 8:31 AM EDT [facility] BAND LOG MILL AND CARRIAGE OPERATOR LAB BLOOD ORDERABLES Final R esult Performing Organization Address City/[facility]/ZIP Co de Phone Number [facility] [address] [address], [place] [phone] * (ABNORMAL) Comprehensive Metabolic Panel (03/15/2024 8:31 AM EDT) NA 137 136 - 145 mmol/L 03/15/2024 9:35 AM EDT [facility] K 3.7 3.5 - 5.1 mmol/L 03/15/2024 9:35 AM EDT [facility] Cl 98 98 - 109 mmol/L 03/15/2024 9:35 AM EDT [facility] CO2 31 23 - 32 mmol/L 03/15/2024 9:35 AM EDT [facility] Anion Gap 12 >=0 03/15/2024 9:35 AM EDT [facility] Glucose 108(H) 60 - 99 mg/dL 03/15/2024 9:35 AM EDT [facility] Creatinine 1.07 0.50 - 1.12 mg/dL 03/15/2024 9:35 AM EDT [facility] Calcium 9.0 8.4 - 10.4 mg/dL 03/15/2024 9:35 AM EDT [facility] Total Protein 5.8(L) 6.6 - 8.7 g/dL 03/15/2024 9:35 AM EDT [facility] Albumin 3.2(L) 3.5 - 5.0 g/dL 03/15/2024 9:35 AM EDT [facility] Bilirubin, Total 0.4 0.2 - 1.2 mg/dL 03/15/2024 9:35 AM EDT [facility] Alkaline Phosphatase 112 40 - 129 U/L 03/15/2024 9:35 AM EDT [facility] AST 28 0 - 40 U/L 03/15/2024 9:35 AM EDT [facility] Comment:DELTA REVIEWED ALT 35 <=41 U/L 03/15/2024 9:35 AM EDT [facility] BUN 16 8 - 23 mg/dL 03/15/2024 9:35 AM EDT [facility] eGFR 68 >=60 mL/min/1. 73m2 03/15/2024 9:35 AM EDT [facility] Comment:The estimated glomer ular filtration rate (eGFR) is calculated using a new formula developed by the NKF-ASN task force to eliminate race-based correction factors. The new formula uses serum/plasma creatinine, age, and gender to determine eGFR. A value below 60mls/min might indicate kidney disease and will be flagged. For additional information, see Laryr et al, Am J Kidney Dis. 2021;79(2):268- 288, A Unifying Approach for GFR estimation: Recommendations of the NKF-ASN Task Force on Reassessing the Inclusion of Race in Diagnosing Kidney Disease . Globulin, Total 2.6 2.1 - 4.2 g/dL 03/15/2024 9:35 AM EDT [facility] A/G Ratio 1.2(L) 1.5 - 3.0 03/15/2024 9:35 AM EDT [facility] Blood Structure of peripheral vein / Unknown 03/15/2024 8:31 AM EDT 03/15/2024 8:31 AM EDT us Lidia [place] BAND LOG MILL AND CARRIAGE OPERATOR LAB BLOOD ORDERABLES Final R esult [facility] [address] [place] [address], documented in this encounter Visit Diagnoses Diagnosis [...] documented as of this encounter Care Teams Retail Sales Manager Relationship Specialty Start Date End Date Uday Sheehan [address] [place] [address] [place] [address] PCP - General Internal Medicine 03/27/24 documented as of this encounter
--- OUTSIDE RECORDS SUMMARY | 2024-11-14 14:08 | XMS_ITS | Encounter Summary ---
Author Organization [facility] Address [address] [place] [address] Care Team Providers Care Furnace Repairer Name Role Phone Uday Sheehan MD Primary Care Provider [phone] Encounter Details Date Type Department Care Team (Late st Contact Info) Description 08/24/2024 Lab Requisition [facility] - Main Lab [address] [facility] [place] [address] Tabby Bledsoe MD 819 [facility] 1 [place], [place] [id number] Bacteremia; Heart failure, unspecified (CMS/HCC V24, CMS/HCC [...] (ABNORMAL) Prealbumin (08/26/2024 7:46 AM EST) Pathologist [facility] Prealbumin 9(L) 18 - 45 mg/dL LAB CHEMISTRY METHOD 08/26/2024 11:01 AM [facility] Blood Venous blood specimen / Unknown Venipuncture / Unknown 08/26/2024 7:46 AM EST 08/26/2024 10:11 AM EST us Tabby Bledsoe MD LAB BLOOD ORDERABLES Fin al Result [facility] [address] [place] [address], [place] [phone] * (ABNORMAL) Comprehensive metabolic panel (08/26/2024 7:46 AM EST) [facility] Sodium 139 133 - 145 mmol/L LAB CHEMISTRY METHOD 08/26/2024 11:03 AM [facility] Potassium 4.3 3.5 - 5.5 mmol/L LAB CHEMISTRY METHOD 08/26/2024 11:03 AM [facility] Chloride 105 96 - 110 mmol/L LAB CHEMISTRY METHOD 08/26/2024 11:03 AM [facility] CO2 29 21 - 32 mmol/L LAB CHEMISTRY METHOD 08/26/2024 11:03 AM [facility] Anion Gap 5 3 - 11 LAB CHEMISTRY METHOD 08/26/2024 11:03 AM [facility] Glucose 81 70 - 100 mg/dL LAB CHEMISTRY METHOD 08/26/2024 11:03 AM [facility] BUN 24 5 - 25 mg/dL LAB CHEMISTRY METHOD 08/26/2024 11:03 AM [facility] Creatinine 1.43(H) 0.70 - 1.30 mg/dL LAB CHEMISTRY METHOD 08/26/2024 11:03 AM [facility] eGFR 48(L) >=60 mL/min/1. 73m2 LAB CHEMISTRY METHOD 08/26/2024 11:03 AM [facility] Comment:Calculation based on the??Chronic Kidney Disease Epidemiology Collaboration (CKD-EPI) equation refit??without adjustment for race. BUN/Creatinine Ratio 16.8 LAB CHEMISTRY METHOD 08/26/2024 11:03 AM [facility] Calcium 8.1(L) 8.5 - 10.5 mg/dL LAB CHEMISTRY METHOD 08/26/2024 11:03 AM [facility] AST (SGOT) 23 10 - 42 unit/L LAB CHEMISTRY METHOD 08/26/2024 11:03 AM [facility] ALT (SGPT) 18 10 - 60 unit/L LAB CHEMISTRY METHOD 08/26/2024 11:03 AM [facility] Alkaline Phosphatase 88 42 - 121 unit/L LAB CHEMISTRY METHOD 08/26/2024 11:03 AM [facility] Total Protein 5.4(L) 6.0 - 8.0 g/dL LAB CHEMISTRY METHOD 08/26/2024 11:03 AM [facility] Albumin 1.3(L) 3.2 - 5.0 g/dL LAB CHEMISTRY METHOD 08/26/2024 11:03 AM [facility] Total Bilirubin 0.4 0.0 - 1.4 mg/dL LAB CHEMISTRY METHOD 08/26/2024 11:03 AM [facility] Blood Venous blood specimen / Unknown Venipuncture / Unknown 08/26/2024 7:46 AM EST 08/26/2024 10:11 AM EST us Tabby Bledsoe MD LAB BLOOD ORDERABLES Fin al Result [facility] [address] [place] [address], * (ABNORMAL) Complete blood count (08/26/2024 7:46 AM EST) [facility] WBC 5.9 4.8 - 10.8 K/mcL LAB HEMETOLOGY METHOD 08/26/2024 10:37 AM [facility] RBC 2.60(L) 4.50 - 5.50 M/mcL LAB HEMETOLOGY METHOD 08/26/2024 10:37 AM [facility] Hemoglobin 7.0(L) 13.5 - 17.5 g/dL LAB HEMETOLOGY METHOD 08/26/2024 10:37 AM [facility] Hematocrit 23.5(L) 42.0 - 54.0 % LAB HEMETOLOGY METHOD 08/26/2024 10:37 AM [facility] LAB MCV 91.1 79.0 - 98.0 FL LAB HEMETOLOGY METHOD 08/26/2024 10:37 AM [facility] MCH 27.1 27.0 - 32.0 pcg LAB HEMETOLOGY METHOD 08/26/2024 10:37 AM [facility] MCHC 29.8(L) 32.0 - 37.0 g/dL LAB HEMETOLOGY METHOD 08/26/2024 10:37 AM [facility] RDW 18.1(H) 11.0 - 15.0 % LAB HEMETOLOGY METHOD 08/26/2024 10:37 AM [facility] Platelets 309 130 - 400 K/mcL LAB HEMETOLOGY METHOD 08/26/2024 10:37 AM [facility] MPV 9.2 7.0 - 11.0 FL LAB HEMETOLOGY METHOD 08/26/2024 10:37 AM [facility] NRBC 0.0 <1.0 % LAB HEMETOLOGY METHOD 08/26/2024 10:37 AM EST [facility] NRBC Absolute 0.00 <0.10 K/mcL LAB HEMETOLOGY METHOD 08/26/2024 10:37 AM EST [facility] Blood Venous blood specimen / Unknown Venipuncture / Unknown 08/26/2024 7:46 AM EST 08/26/2024 10:11 AM EST us Tabby Bledsoe MD LAB BLOOD ORDERABLES Fin al Result [facility] [address] [place] [address], documented in this encounter Visit Diagnoses Diagnosis Bacteremia Heart failure, unspecified (CMS/HCC V24, CMS/HCC V28) Heart failure, unspecified Pressure ulcer of unspecified site, unspecified stage documented in this encounter Additional Health Concerns Infection Onset Date Last Indicated Resolved Time ESBL 06/22/2024 06/22/2024 documented as of this encounter Care Teams Furnace Repairer Relationship Specialty Start Date End Date Uday Sheehan MD [address] [place] [address] Dr Donna [place] PCP - General Color Shop Helper 12/19/16 documented as of this encounter
--- OUTSIDE RECORDS SUMMARY | 2024-11-14 14:08 | XMS_ITS | Encounter Summary ---
Author Organization [facility] Address [address] [place] [address] Care Team Providers Care Instructor Substitute Cosmetology Name Role Phone Uday Sheehan MD Primary Care Provider [phone] Encounter Details Date Type Department Care Team (Late st Contact Info) Description 10/17/2024 Lab Requisition [facility] - Main Lab 299 [facility] [place] [address] Tabby Bledsoe MD [address] [address] Anemia, unspecified; Chronic kidney disease, unspecified Social [...] (ABNORMAL) C-reactive protein (10/17/2024 7:07 AM EDT) [facility] C-Reactive Protein 13.90(H) <=0.50 mg/dL LAB CHEMISTRY METHOD 10/17/2024 11:48 AM EDT [facility] Blood Venous blood specimen / Unknown Venipuncture / Unknown 10/17/2024 7:07 AM EDT 10/17/2024 10:31 AM EDT Tabby Bledsoe MD LAB BLOOD ORDERABLES Fin al Result Performing Organization Address [facility]/ZIP Co de Phone Number [facility] [address] [place] [address], [place] [phone] * (ABNORMAL) Sedimentation rate (10/17/2024 7:07 AM EDT) [facility] Sed Rate 88(H) 0 - 20 mm/hr LAB HEMETOLOGY METHOD 10/17/2024 11:47 AM EDT [facility] Blood Venous blood specimen / Unknown Venipuncture / Unknown 10/17/2024 7:07 AM EDT 10/17/2024 10:31 AM EDT Tabby Bledsoe MD LAB BLOOD ORDERABLES Fin al Result Performing Organization Address [facility]/ZIP Va de Phone Number [facility] [address] [place] [address], [place] [phone] * (ABNORMAL) Complete blood count (10/17/2024 7:07 AM EDT) [facility] WBC 7.2 4.8 - 10.8 K/mcL LAB HEMETOLOGY METHOD 10/17/2024 11:23 AM EDT [facility] RBC 2.60(L) 4.50 - 5.50 M/mcL LAB HEMETOLOGY METHOD 10/17/2024 11:23 AM EDT [facility] Hemoglobin 7.2(L) 13.5 - 17.5 g/dL LAB HEMETOLOGY METHOD 10/17/2024 11:23 AM [facility] Hematocrit 24.2(L) 42.0 - 54.0 % LAB HEMETOLOGY METHOD 10/17/2024 11:23 AM [facility] MCV 92.4 79.0 - 98.0 FL LAB HEMETOLOGY METHOD 10/17/2024 11:23 AM [facility] MCH 27.5 27.0 - 32.0 pcg LAB HEMETOLOGY METHOD 10/17/2024 11:23 AM [facility] MCHC 29.8(L) 32.0 - 37.0 g/dL LAB HEMETOLOGY METHOD 10/17/2024 11:23 AM [facility] RDW 16.8(H) 11.0 - 15.0 % LAB HEMETOLOGY METHOD 10/17/2024 11:23 AM [facility] Platelets 253 130 - 400 K/mcL LAB HEMETOLOGY METHOD 10/17/2024 11:23 AM [facility] MPV 9.5 7.0 - 11.0 FL LAB HEMETOLOGY METHOD 10/17/2024 11:23 AM [facility] NRBC 0.0 <1.0 % LAB HEMETOLOGY METHOD 10/17/2024 11:23 AM [facility] NRBC Absolute 0.00 <0.10 K/mcL LAB HEMETOLOGY METHOD 10/17/2024 11:23 AM [facility] Blood Venous blood specimen / Unknown Venipuncture / Unknown 10/17/2024 7:07 AM EDT 10/17/2024 10:31 AM EDT us Tabby Bledsoe MD LAB BLOOD ORDERABLES Fin al Result [facility] [address] [place] [address], documented in this encounter Visit Diagnoses Diagnosis Anemia, unspecified Chronic kidney disease, unspecified documented in this encounter Additional Health Concerns Infection Onset 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
--- OUTSIDE RECORDS SUMMARY | 2024-11-14 14:08 | XMS_ITS | Continuity of Care Document ---
Author Organization [facility] [address] [place] [address] Phone [phone] Social History Type Date Description Comments Sex Unknown Medical Devices Description No Information Available Encounters Description No Information Available Assessments Description No Information Available Plan of Treatment No Information Available Functional Status Description No Information Available Mental Status Description No Information Available Referrals Description No Information Available
--- OUTSIDE RECORDS SUMMARY | 2024-11-14 14:08 | XMS_ITS | Encounter Summary ---
Author Organization [facility] Address [address] [place] [address] Care Team Providers Care Scuba Dive Training Instructor Name Role Phone Uday Sheehan Primary Care Provider [phone] Encounter Details Date Type Department Care Team (Late st Contact Info) Description 03/16/2024 Lab Requisition [facility] [address] [place] [address] Cecilio Bautista PA [address] [place] [address] Acute respiratory failure with hypoxia; No diagnosis [...] this encounter Procedures * Due to [place] [employer] law, this organization might not be sharing negative HIV tests. Procedure Name Priority Date/Time Associated Diagnosis Comments VANCOMYCIN, TROUGH Routine 03/16/2024 11 :54 AM EDT Acute respiratory failure with hypoxia (HCC) No diagnosis documented in this encounter Results * Due to [place] [employer] law, this organization might not be sharing negative HIV tests. * (ABNORMAL) Vancomycin, Trough (03/16/2024 11:54 AM EDT) Vancomycin Trough 8.2(L) 10.0 - 20.0 ug/mL 03/16/2024 1:58 PM EDT [facility] Blood Structure of peripheral vein / Unknown 03/16/2024 11:54 AM EDT 03/16/2024 11:54 AM EDT Cecilio Z[facility] LAB BLOOD ORDERABLES Final R esult [facility] [address] [place] [address], [place] [phone] documented in this encounter Visit Diagnoses Diagnosis [...] documented as of this encounter Care Teams Scuba Dive Training Instructor Relationship Specialty Start Date End Date Uday Sheehan [address] [place] [address] [place] [address] PCP - General Internal Medicine 03/27/24 documented as of this encounter
--- OUTSIDE RECORDS SUMMARY | 2024-11-14 14:08 | XMS_ITS | Encounter Summary ---
Author Organization [facility] Address [address] [place] [address] Phone Care Team Providers Care Interior Design Professional Name Role Phone Uday Sheehan MD Primary Care Provider [phone] Encounter Details Date Type Department Care Team (Late st Contact Info) Description 10/11/2021 Documentation Only [facility], [address] [place] [address] Adi Jaeger MD [address] [facility] [address] [place] [address] Social History Tobacco Use Types [...] on filedocumented in this encounter Care Teams Interior Design Professional Relationship Specialty Start Date End Date Uday Sheehan MD [address] [facility] [place] PCP - General 05/14/19 documented as of this encounter
--- OUTSIDE RECORDS SUMMARY | 2024-11-14 14:08 | XMS_ITS ---
Author Organization [facility] Address [address] [place] [address] Care Team Providers Care Thread Winder Name Role Phone Pearl Garcia Primary Care Provider Lucila Phillip [facility] [phone] Encounters Encounter Location Date Provider Diagnosis [facility] [address] [place] [address] 08/15/2024 Lucila Kapoor Plan Of Treatment No Information Progress Notes * Ramon SIMMSDOB:1939 (84 yo M)Acc No.[id number]:08/15/2024 Progress Notes Patient:?PARISWILBERTOPINKY Ramon Provider:?Lucila Kapoor DPM :1940???Age:84 Y???Sex:Male Kevin e:08/15/2024 Address:[address] [place] [address] [id number] Pcp:Pearl Garcia Subjective: * Chief Complaints: * ??? * Medical History:? Objective: * Vitals:? Assessment: Plan: * Treatment: * Images: * The named appointment provid er may or may not be the originator of this progress note, and it is not deemed complete until electronically signed by the appointment provider. Sign off status: Pending * Provider:?Lucila Kapoor DPM Date:?0 08/15/2024 Generated for Braeden boyce/Farandyg/eTransmitting on:?11/14/2024 02:07 PM EDT
--- OUTSIDE RECORDS SUMMARY | 2024-11-14 14:08 | XMS_ITS | Encounter Summary ---
Author Organization [facility] Address [address] [place] [address] Care Team Providers Care Supervisor Sewing Room Name Role Phone Uday Sheehan MD Primary Care Provider [phone] Encounter Details Date Type Department Care Team (Late st Contact Info) Description 10/06/[address] [facility] [address] [place] [address] Tabby Bledsoe MD [address] [address] Bacteremia Social History Tobacco Use Types Packs/Day [...] LAB CHEMISTRY METHOD 10/07/2024 12:51 PM EDT [facility] Potassium 4.2 3.5 - 5.5 mmol/L LAB CHEMISTRY METHOD 10/07/2024 12:51 PM [facility] Chloride 102 96 - 110 mmol/L LAB CHEMISTRY METHOD 10/07/2024 12:51 PM [facility] CO2 27 21 - 32 mmol/L LAB CHEMISTRY METHOD 10/07/2024 12:51 PM [facility] Anion Gap 7 3 - 11 LAB CHEMISTRY METHOD 10/07/2024 12:51 PM [facility] Glucose 97 70 - 100 mg/dL LAB CHEMISTRY METHOD 10/07/2024 12:51 PM [facility] BUN 31(H) 5 - 25 mg/dL LAB CHEMISTRY METHOD 10/07/2024 12:51 PM [facility] Creatinine 1.03 0.70 - 1.30 mg/dL LAB CHEMISTRY METHOD 10/07/2024 12:51 PM [facility] eGFR 72 >=60 mL/min/1. 73m2 LAB CHEMISTRY METHOD 10/07/2024 12:51 PM [facility] Comment:Calculation based on the??Chronic Kidney Disease Epidemiology Collaboration (CKD-EPI) equation refit??without adjustment for race. BUN/Creatinine Ratio 30.1 LAB CHEMISTRY METHOD 10/07/2024 12:51 PM [facility] Calcium 8.0(L) 8.5 - 10.5 mg/dL LAB CHEMISTRY METHOD 10/07/2024 12:51 PM [facility] AST (SGOT) 31 10 - 42 unit/L LAB CHEMISTRY METHOD 10/07/2024 12:51 PM [facility] ALT (SGPT) 38 10 - 60 unit/L LAB CHEMISTRY METHOD 10/07/2024 12:51 PM [facility] Alkaline Phosphatase 98 42 - 121 unit/L LAB CHEMISTRY METHOD 10/07/2024 12:51 PM [facility] Total Protein 5.4(L) 6.0 - 8.0 g/dL LAB CHEMISTRY METHOD 10/07/2024 12:51 PM EDT [facility] Albumin 1.4(L) 3.2 - 5.0 g/dL LAB CHEMISTRY METHOD 10/07/2024 12:51 PM EDT [facility] Total Bilirubin 0.3 0.0 - 1.4 mg/dL LAB CHEMISTRY METHOD 10/07/2024 12:51 PM EDT [facility] Blood Venous blood specimen / Unknown Venipuncture / Unknown 10/07/2024 8:53 AM EDT 10/07/2024 10:28 AM EDT us Tabby Bledsoe MD LAB BLOOD ORDERABLES Fin al Result [facility] [address] [place] [address], * (ABNORMAL) Complete blood count (10/07/2024 8:53 AM EDT) WBC 7.3 4.8 - 10.8 K/mcL LAB HEMETOLOGY METHOD 10/07/2024 11:23 AM [facility] RBC 2.80(L) 4.50 - 5.50 M/mcL LAB HEMETOLOGY METHOD 10/07/2024 11:23 AM [facility] Hemoglobin 7.9(L) 13.5 - 17.5 g/dL LAB HEMETOLOGY METHOD 10/07/2024 11:23 AM T [facility] Hematocrit 26.0(L) 42.0 - 54.0 % LAB HEMETOLOGY METHOD 10/07/2024 11:23 AM EDT [facility] MCV 93.2 79.0 - 98.0 FL LAB HEMETOLOGY METHOD 10/07/2024 11:23 AM [facility] MCH 28.3 27.0 - 32.0 pcg LAB HEMETOLOGY METHOD 10/07/2024 11:23 AM EDT [facility] MCHC 30.4(L) 32.0 - 37.0 g/dL LAB HEMETOLOGY METHOD 10/07/2024 11:23 AM EDT [facility] RDW 17.0(H) 11.0 - 15.0 % LAB HEMETOLOGY METHOD 10/07/2024 11:23 AM EDT [facility] Platelets 224 130 - 400 K/mcL LAB HEMETOLOGY METHOD 10/07/2024 11:23 AM EDT [facility] MPV 8.7 7.0 - 11.0 FL LAB HEMETOLOGY METHOD 10/07/2024 11:23 AM EDT [facility] NRBC 0.0 <1.0 % LAB HEMETOLOGY METHOD 10/07/2024 11:23 AM EDT [facility] NRBC Absolute 0.00 <0.10 K/mcL LAB HEMETOLOGY METHOD 10/07/2024 11:23 AM EDT [facility] Blood Venous blood specimen / Unknown Venipuncture / Unknown 10/07/2024 8:53 AM EDT 10/07/2024 10:28 AM EDT us Tabby Bledsoe MD LAB BLOOD ORDERABLES Fin al Result [facility] [address] [place] [address], documented in this encounter Visit Diagnoses Diagnosis Bacteremia documented in this encounter Additional Health Concerns 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
--- OUTSIDE RECORDS SUMMARY | 2024-11-14 14:08 | XMS_ITS | Encounter Summary ---
Author Organization [facility] Address [address] [place] [address] Care Team Providers Care Tape Edge Machine Operator Name Role Phone Uday Sheehan Primary Care Provider [phone] Encounter Details Date Type Department Care Team (Late st Contact Info) Description 03/17/[address] [facility] [address] [place] [id number] No diagnosis Social History Tobacco Use Types [...] documented as of this encounter Care Teams Tape Edge Machine Operator Relationship Specialty Start Date End Date Uday Sheehan [address] [place] [address] dr Donna [place] [address] PCP - General Internal Medicine 03/27/24 documented as of this encounter
--- OUTSIDE RECORDS SUMMARY | 2024-11-14 14:09 | XMS_ITS | Encounter Summary ---
Author Organization [facility] Address [address] [place] [address] Phone Care Team Providers Care Burlap Bag Sewer Name Role Phone Uday Sheehan MD Primary Care Provider [phone] Encounter Details Date Type Department Care Team (Late st Contact Info) Description 09/08/2023 Documentation Only [facility], [address] [place] [address] [place] [address] [place] [address] Social History Tobacco Use Types [...] on filedocumented in this encounter Care Teams Burlap Bag Sewer Relationship Specialty Start Date End Date Uday Sheehan MD [address] [place], [place] PCP - General 05/14/19 documented as of this encounter
--- OUTSIDE RECORDS SUMMARY | 2024-11-14 14:09 | XMS_ITS ---
Author Organization [facility] Address [address] [place] [address] Care Team Providers Care Marine Tower Operator Name Role Phone Pearl Garcia Primary Care Provider Lucila Phillip [phone] REASON FOR VISIT Cancel Encounters Encounter Location Date Provider Diagnosis [facility] [address] [place] [address] 08/08/2024 Lucila Kapoor Plan Of Treatment No Information Progress Notes * Ramon ATKINSONDOB:1939 (84 yo M)Acc No.[id number]:08/08/2024 Patient:?Ramon ATKINSON :1940???Age:84 Y???Sex:Male Address: [address] [place], [address] * true * Date:? Generated for Printi ng/Faxing/eTransmitting on:?11/14/2024 02:08 PM EDT
[2024-11-14] MEDS: oxyCODONE HCl Immed Release 5 MG TABLET 10 MG PO (14:33)
[2024-11-14 14:38] LABS: OBS Int Ctl Valid YES; OBS1 NEGATIVE (NEGATIVE)
[2024-11-14 14:39] LABS: MANUAL DIFF FLAG NO
[2024-11-14 14:42] LABS: Basophils Percent Auto 0.4 % (0-2); Eosinophils Absolute Auto 0.2 X10*3/uL (0.0-0.4); Eosinophils Percent Auto 2.4 % (0-4); Hematocrit 25.1 % (42.0-52.0); Hemoglobin 7.6 g/dl (14.0-18.0); Imm Gran Abs Auto 0.04 X10*3/uL (0.00-0.03); Imm Gran Pct Auto 0.6 % (0.0-0.4); Lymphocytes Absolute Auto 1.3 X10*3/uL (1.2-4.9); Lymphocytes Percent Auto 19.2 % (20-40); Mean Corpuscular HGB Conc 30.3 g/dl (31.0-36.0); Mean Corpuscular Volume 89.3 fL (80.0-98.0); Mean Platelet Volume 9.2 fL (9.4-12.4); Monocytes Absolute Auto 0.7 X10*3/uL (0.1-1.2); Monocytes Percent Auto 10.6 % (2-11); Neutrophils Absolute Auto 4.7 x10*3/uL (2.0-8.3); Neutrophils Percent Auto 66.8 % (45-73); Platelet Count 225 X10*3/uL (160-400); Red Blood Count 2.81 X10*6/uL (4.60-5.80); Red Cell Distribution Width 17.4 % (11.0-16.0)
--- NOTE | 2024-11-14 14:54 | PC.NURSE ---
patient medicated per SEP for 02/16 toepain, hip pain, left shoulder pain- pending repeat CBC result
[2024-11-14 16:33] VITALS: BP 109/45; PULSE 80; RESP 18; TEMP 36.6; O2SAT 97
[2024-11-14 18:13] VITALS: BP 111/47; PULSE 80; RESP 12; TEMP 36.4; O2SAT 97
[2024-11-14 19:45] VITALS: BP 111/47; PULSE 80; RESP 12; TEMP 36.4; O2SAT 97
== END 2024-11-14 19:46 | disposition home or self-care (01) ==
PROVIDERS: Emergency Provider Emergency Medicine; PCP Internal Medicine
DX: D64.9 Anemia, unspecified (principal); I10 Essential (primary) hypertension; I48.91 Unspecified atrial fibrillation; Z79.01 Long term (current) use of anticoagulants; Z79.899 Other long term (current) drug therapy
CPT/HCPCS: 36415; 80053; 82272; 85025; 85610; 86850; 86900; 86901; 99283; 99284

== ENCOUNTER 2024-11-19 15:59 | Emergency (ER) | payer MEDICARE, SELFPAY ==
[2024-11-19] VITALS (12 sets, daily range): BP systolic 80–116; BP diastolic 34–59; PULSE 67–89; RESP 16–22; TEMP 36.8–37.4; O2SAT 88–96; BMI 27.2
--- NOTE | ~2024-11-19 | XR_ITS ---
CLINICAL HISTORY: cough, fever Chest Radiograph Comparison: 08/29/24 Findings: No cardiomegaly. Normal mediastinal contours. No pneumothorax. No opacity. No pleural effusion. Normal upper abdomen. No acute fracture. Impression: No acute findings. This document has been electronically signed by: Sharmaine Cruz MD on 11/19/2024 17:40:08
--- NOTE | 2024-11-19 17:02 | ED_ITS ---
HPI - General Adult General Chief complaint: General Medical Stated complaint: infection Time Seen by Provider: 11/19/24 16:41 Source: patient and EMS Mode of arrival: EMS Limitations: no limitations History of Present Illness ED Provider: Dr. No Horowitz HPI narrative: patient comes to the emergency room via ambulance from [facility]. According to the staff, patient had fever and low blood pressure. Of note, patient was recently discharged, 9 days ago for sepsis secondary to wounds in his feet and sacrum. Patient states that he feels at baseline, to patient's knowledge he has not had any fever. Patient states that earlier today his room was hot, my nurses palpated him and told him that he was too hot to touch and likely had a fever. Patient complaining of chronic pain, states that tramadol does not work well for chronic pain and is requesting a dose of oxycodone. Patient denies chills. Patient reports that he has been coughing more than usual. Related Data Home Medications ?Medication ?Instructions ?Recorded ?Confirmed acetaminophen 325 mg tablet 650 mg PO Q6H PRN Pain/Fever 06/26/24 11/07/24 amiodarone 200 mg tablet 200 mg PO DAILY 06/26/24 11/07/24 ascorbic acid (vitamin C) 500 mg 500 mg PO BID 06/26/24 11/07/24 tablet bisacodyl 10 mg rectal suppository 10 mg WV DAILY PRN Constipation 06/26/24 11/07/24 docusate sodium 100 mg tablet 200 mg PO BID 06/26/24 11/07/24 famotidine 20 mg tablet 20 mg PO BEDTIME 06/26/24 11/07/24 ferrous sulfate 325 mg (65 mg 325 mg PO BID 06/26/24 11/07/24 iron) tablet gabapentin 100 mg capsule 200 mg PO BID 06/26/24 11/07/24 levothyroxine 100 mcg tablet 100 mcg PO DAILY@0600 06/26/24 11/07/24 polyvinyl alcohol 1.4 % eye drops 1 drp ophthalmic (eye) Q6H PRN Dry 06/26/24 11/07/24 Eyes sennosides 8.6 mg tablet (senna) 17.2 mg PO BEDTIME 06/26/24 11/07/24 thiamine HCl (vitamin B1) 100 mg 100 mg PO DAILY 06/26/24 11/07/24 tablet (Vitamin B-1) Lactobacillus acidoph-L.bulgaricus 1 tab PO BID 08/11/24 11/07/24 1 million cell tablet collagenase clostridium histo. 250 1 appl topical DAILY 08/11/24 11/07/24 unit/gram topical ointment (Santyl) menthol 5 % topical patch (Cold 1 patch topical DAILY 08/11/24 11/07/24 and Hot (menthol)) ondansetron HCl 4 mg tablet 4 mg PO Q8H PRN Nausea And Vomiting 08/11/24 11/07/24 sodium phosphates 19 gram-7 118 ml WV DAILY PRN Constipation 08/11/24 11/07/24 gram/118 mL enema (Fleet Enema) zinc acetate 50 mg (zinc) capsule 50 mg PO DAILY 08/11/24 11/07/24 melatonin 5 mg tablet 10 mg PO BEDTIME PRN Insomnia 08/20/24 11/07/24 tramadol 50 mg tablet 100 mg PO Q6H PRN Pain 08/30/24 11/07/24 aspirin 81 mg tablet,delayed 81 mg PO DAILY 10/03/24 11/07/24 release fluticasone propionate 50 2 spray intranasal DAILY 10/03/24 11/07/24 mcg/actuation nasal spray,suspension magnesium hydroxide 400 mg/5 mL 30 ml PO DAILY PRN Constipation 10/03/24 11/07/24 oral suspension (Milk of Magnesia) miconazole nitrate 2 % topical 1 appl topical BID 10/03/24 11/07/24 cream pantoprazole 40 mg tablet,delayed 40 mg PO BID@0630,1630 10/03/24 11/07/24 release trazodone 50 mg tablet 25 mg PO BID PRN DEPRESSION 10/03/24 11/07/24 trazodone 50 mg tablet 50 mg PO BEDTIME 10/03/24 11/07/24 amoxicillin 875 mg tablet 875 mg PO BID 11/07/24 11/07/24 atorvastatin 40 mg tablet 40 mg PO DAILY 11/07/24 11/07/24 doxazosin 2 mg tablet 2 mg PO BEDTIME 11/07/24 11/07/24 doxycycline hyclate 100 mg tablet 100 mg PO BID 11/07/24 11/07/24 heparin, porcine (PF) 5,000 5,000 unit subcut Q8H 11/07/24 11/07/24 unit/0.5 mL injection syringe sodium chloride-hypochlorous acid 1 irrig irrigation QSHIFT PRN 11/07/24 11/07/24 0.033 % irrigation solution (Vashe) WOUND CLEANING Previous Rx's ?Medication ?Instructions ?Recorded polyethylene glycol 3350 17 gram 17 g PO DAILY #30 ea 03/06/24 oral powder packet finasteride 5 mg tablet 5 mg PO DAILY #0 tabs 07/02/24 diphenoxylate-atropine 2.5 5 ml PO DAILY #60 mL 11/10/24 mg-0.025 mg/5 mL oral liquid Allergies Allergy/AdvReac Type Severity Reaction Status Date / Time ibuprofen [IBUPROFEN] Allergy Intermediate HIVES Verified 11/19/24 16:15 hydromorphone [From DILAUDID] AdvReac Intermediate ILEUS Verified 11/19/24 16:15 procaine [From Novocain] AdvReac Intermediate has no Verified 11/19/24 16:15 numbing effect-states monocain works narcotic pain meds AdvReac Intermediate does not Uncoded 11/14/24 12:20 relieve pain per patient Review of Systems 2 Review of Systems: Constitutional : No Weight loss, No Fever, No Chills, No Night Sweats, No Fatigue, No Malaise ENT/Mouth : No Hearing loss, No Ear Pain, No Nasal Congestion, No Sinus Pain, No Hoarseness, No sore throat, No Rhinorrhea, No Swallowing Difficulty Eyes: No Eye Pain, No Swelling, No Redness, No Foreign Body, No Discharge, No Vision Changes Cardiovascular : No Chest Pain, No SOB, No Dyspnea on Exertion, No Orthopnea, No Edema, No Palpitations Respiratory : No Cough, No Sputum, No Wheezing, No Smoke Exposure, No Dyspnea Gastrointestinal : No Nausea, No Vomiting, No Diarrhea, No Constipation, No abdominal Pain, No Hematochezia, No Melena Genitourinary : no irregular bleeding, No Dysuria, No Urinary Frequency, No Hematuria, No Urinary Incontinence, No Urgency, No Flank Pain, No Urinary Flow Changes, No Hesitancy Musculoskeletal : No joint pain, No Myalgias, No Joint Swelling Skin : Complaining of chronic pain in his wounds especially the sacrum Neuro : No Weakness, No Numbness, No Paresthesias, No Loss of Consciousness, No Dizziness, No Headache Psych : No Anxiety/Panic, No Depression, No SI/HI/AH/VH, No Social Issues, Heme/Lymph: No Bruising, No Bleeding,No Lymphadenopathy Endocrine : No Polyuria, No Polydipsia, No Temperature Intolerance PMFSH Past Medical History Medical History Bilateral hydronephrosis Delirium Altered mental status Sepsis Atherosclerotic cardiovascular disease PAF (paroxysmal atrial fibrillation) NSTEMI (non-ST elevated myocardial infarction) Chronic renal disease, stage 3, moderately decreased glomerular filtration rate (GFR) between 30-59 mL/min/1.73 square meter Chest pain Heart failure Thyroid disease GERD (gastroesophageal reflux disease) On anticoagulant therapy COVID-19 vaccine series completed Symptomatic cholelithiasis HTN (hypertension) Hyperlipidemia Atrial fibrillation Sleep apnea Elevated PSA Facet arthropathy, cervical BPH loc w urin obs/LUTS Surgical History S/P percutaneous endoscopic gastrostomy (PEG) tube placement Hx of tracheostomy S/P laparoscopic cholecystectomy Hx of cataract extraction History of total replacement of both hip joints Hx of cystoscopy H/O colonoscopy History of surgery Family History Family History Unknown No problems noted. Social History Social History Household Members: Spouse Housing: Long-Term Are you a primary care asst to a significant other at home: No Do you presently have visiting nurse or other home services: Yes ([employer] 8hrs a day) Alcohol intake: never Comment: patient is chair, bedbound Patient Tobacco Use Status: Never used Tobacco Smoked in Last 30 Days: No Use of substances other than those prescribed or required for medical reasons: No Advance Directives: Yes Advance Directives on File: Yes Advance Directives Date on File: 03/07/24 Do you have a plan to hurt others: No Plan service: No Current occupational status: retired Physical Exam ED Vital Signs: Vital Signs - 24 hr 11/19/24 16:09 11/19/24 16:15 11/19/24 16:28 Temperature 99.4 F Pulse Rate 89 87 Respiratory Rate 16 16 Blood Pressure 80/37 L 106/53 L 116/59 L Pulse Oximetry 88 L 96 96 Oxygen Delivery Method Room Air Nasal Cannula Nasal Cannula Oxygen Flow Rate 2 2 11/19/24 16:44 11/19/24 16:50 11/19/24 16:58 Temperature Pulse Rate 81 Respiratory Rate Blood Pressure 83/34 L 97/51 L 114/54 L Pulse Oximetry 93 Oxygen Delivery Method Room Air Oxygen Flow Rate 11/19/24 17:28 11/19/24 17:56 11/19/24 19:07 Temperature 98.3 F Pulse Rate 79 76 71 Respiratory Rate 16 16 18 Blood Pressure 105/51 L 101/53 L 102/55 L Pulse Oximetry 94 93 95 Oxygen Delivery Method Room Air Room Air Room Air Oxygen Flow Rate 11/19/24 19:14 11/19/24 20:05 Temperature 98.3 F 98.2 F Pulse Rate 71 67 Respiratory Rate 18 22 H Blood Pressure 102/55 L 116/51 L Pulse Oximetry 95 Oxygen Delivery Method Room Air Oxygen Flow Rate BMI result Body Mass Index 27.2 Const Other: Appearance: Alert. Oriented X3. No acute distress. Eyes: Pupils equal, round and reactive to light. ENT: Pharynx normal. Neck: Normal inspection. Neck supple. No lymph nodes noted. No crepitus CVS: Normal heart rate and rhythm. Pulses normal. Normal S1 and S2 Respiratory: No respiratory distress. Breath sounds normal. No Wheezing. No rales , oxygen saturation constantly 94-95% on room air with no oxygen desaturations Abdomen: Soft and nontender. No rigidity. No distention. Skin: Skin warm and dry. Normal skin color. patient has a chronic sacral wound, looks clean, chronic, see extremities below Extremities: No lower extremity edema. No Lacerations. No Rash. Patient has bilateral chronic ulcers. Seem clean Neuro: Oriented X 3. No motor deficit. No sensory deficit. Moving all extremities. No slurred speech. CN 2 through 12 grossly intact Psych: calm, cooperative, normal affect Course Course Course Narrative: I was informed by the patient's nurse, that when patient initially arrived, the blood pressure was 80/37. We immediately checked the blood pressure with a different blood pressure cuff which fits the patient well on his arm, the blood pressure was 106/53. it is possible that the patient had a low blood pressure read at the detention facility if they used the wrong size cuff. Patient's nurse reports that the patient had an oxygen saturation of 88% on room air on arrival, placed on 2 L nasal cannula. it is unclear if patient had a good pleth wave. When I assessed the patient, he denies shortness of breath. patient's nasal cannula was discontinued and left on room air. the immediate oxygen saturation was 94%, even after several minutes of being on room air, patient's oxygen saturation remained at 94% with no oxygen desaturations. Patient reported breathing normally, no shortness of breath. No oxygen desaturations detected. patient's oral temperature 99.4 degrees. Patient refused a rectal temperature. All of patient's labs Pending. given patient's past medical history, the Patient was empirically being treated with IV fluids and antibiotics. Patient has history of CHF, ejection fraction 40-45% of note, patient currently taking oral amoxicillin and doxycycline until November 30 for osteomyelitis Medications Administered Discontinued Medications Generic Name Dose Route Start Last Admin Trade Name Freq PRN Reason Stop Dose Admin Ceftriaxone Sodium 1 gm 11/19/24 17:11 11/19/24 17:34 Ceftriaxone Sodium 1 Gm Vial IVPUSH 11/19/24 17:12 1 gm ONCE ONE Administration Sodium Chloride 1,000 mls @ 500 mls/hr 11/19/24 17:15 11/19/24 20:04 Ns IV 11/19/24 19:14 Infused .Q2H AIDAN Infusion Oxycodone HCl 5 mg 11/19/24 17:02 11/19/24 17:34 Oxycodone Hcl Immed Release 5 Mg Tablet PO 11/19/24 17:03 5 mg ONCE ONE Administration Medical Decision Making Medical Decision Making [facility] Narrative: We have been keeping track of patient's vitals, the 1st initial low blood pressure was because patient had the wrong BP cuff, then a 2nd low blood pressure was documented. However, it was noted that patient's blood pressure cuff was in his wrist. The blood pressure was checked immediately and blood pressure was in the 100 systolic with a good map. Since patient arrived to emergency room, he has been on room air saturating 95% and above. BP above 100 systolic constantly. Patient has not had any oxygen desaturations, has been having normal blood pressure readings, patient states that he feels well. Initially, given the EMS report from the patient's facility, patient was treated with empiric antibiotics and fluids while we were waiting for the blood work. Patient has been asymptomatic the whole time here in the emergency room. My interpretation of labs: Patient's white blood cell count 8.6, patient's hemoglobin and hematocrit are at baseline, today 7.2/, patient's baseline is between 7 and 8. Normal platelet count. No significant abnormality in patient's chemistry. Lactic acid 1.3, LFTs at baseline. Patient's urine has a small amount of blood which is chronic for the patient, large amount of leukocyte esterase which is also chronic for the patient, patient has an Chronic Jamison catheter. patient denies any urinary discomfort. chest x-ray negative for infiltrates or any acute findings I reviewed patient's past medical history. Patient has been here for urine sepsis. However, during dose visits when patient had a UTI, he was delusional, altered mental status. On his last visit, patient's urine look the same. Per hospitalist notes, this was secondary to chronic colonization. However, patient did have other issues in the past including osteomyelitis which were treated with antibiotics. At this time, as mentioned above, patient is completely asymptomatic, patient states that the Jamison catheter does not bother him at all, denies suprapubic pain, no flank pain, Patient has no systemic symptoms. alert and oriented x3, normal blood pressure, normal vitals, normal lactic and white blood cell count. I discussed the patient with Dr. Stokes from the medicine team. at this time, no need for admission, urinalysis likely secondary to chronic colonization. However, patient was made aware that if his urine culture comes back positive, he will be called back in admitted to the hospital. Because he does have history of ESBL. Patient's blood pressure 116/51, heart rate 67, temperature 98.2 degrees, oxygen saturation 95% on room air, patient asymptomatic Differential Diagnosis Differential Diagnoses: The differential diagnosis associated with the presentation includes ( viral syndrome, UTI, URI) Admission/Observation Consideration of admission/observation: Escalation of care including admission/observation considered ( given patient's past medical history, admission was considered) Consult Healthcare Provider Management of the patient was discussed with: Hospitalist Lab Data MDM Lab Attestation statement: I reviewed the patient's lab results. 11/19/24 17:15 11/19/24 17:15 Labs: Lab Results 11/19/24 11/19/24 11/19/24 Range/Units 17:15 17:17 19:10 WBC 8.6 (4.8-10.8) X10*3/uL RBC 2.61 L (4.60-5.80) X10*6/uL Hgb 7.2 L (14.0-18.0) g/dl Hct 23.0 L (42.0-52.0) % MCV 88.1 (80.0-98.0) fL MCH 27.6 (27.0-33.0) pg MCHC 31.3 (31.0-36.0) g/dl RDW 18.0 H (11.0-16.0) % Plt Count 207 (160-400) X10*3/uL MPV 9.4 (9.4-12.4) fL Immature Gran % (Auto) 0.4 (0.0-0.4) % Neut % (Auto) 69.0 (45-73) % Lymph % (Auto) 15.2 L (20-40) % [place] % (Auto) 13.7 H (2-11) % Eos % (Auto) 1.3 (0-4) % Baso % (Auto) 0.4 (0-2) % Lymph # (Auto) 1.3 (1.2-4.9) X10*3/uL [place] # (Auto) 1.2 (0.1-1.2) X10*3/uL Eos # (Auto) 0.1 (0.0-0.4) X10*3/uL Baso # (Auto) 0.0 (0.0-0.2) X10*3/uL Abs Immat Gran (auto) 0.03 (0.00-0.03) X10*3/uL Absolute Neuts (auto) 5.9 (2.0-8.3) x10*3/uL Absolute Nucleated RBC 0.000 (0.0-0.012) X10*3/uL Nucleated RBC % (auto) 0.0 (0.0-0.2) /100WBC Sodium 138 (135-145) mmol/L Potassium 4.6 (3.3-5.1) mmol/L Chloride 103 (96-108) mmol/L Carbon Dioxide 28 (22-29) mmol/L Anion Gap 12 (12-20) BUN 45 H (9-16) mg/dL Creatinine 1.31 (0.5-1.4) mg/dL Estim Creat Clear Calc 46.0 Estimated GFR 52 Random Glucose 125 H (60-115) mg/dL Lactic Acid 1.3 (0.5-2.0) mmol/L Calcium 8.2 L (8.4-10.2) mg/dL Total Bilirubin 0.3 (0.0-1.0) mg/dL Direct Bilirubin 0.1 (0.0-0.5) mg/dL AST 40 H (5-37) U/L ALT 29 (0-40) U/L Alkaline Phosphatase 100 (39-117) U/L Total Protein 6.0 L (6.5-8.0) g/dL Albumin 2.0 L (3.5-5.0) g/dL Urine Color Yellow Urine Appearance Cloudy Urine pH 6.5 (5.0-9.0) Ur Specific [place] 1.020 (1.005-1.025) Urine Protein Trace (Neg-Trace) mg/dL Urine Glucose (UA) Negative (Negative) mg/dL Urine Ketones Negative (Negative) mg/dL Urine Blood Small (1+) H (Negative) Urine Nitrite Negative (Negative) Ur Leukocyte Esterase Large (3+) H (Negative) Urine RBC 6-10 H (0-2) /HPF Urine WBC 11-20 (0-5) /HPF Ur Squamous Epith Cells 0-2 (0-2) /HPF Calcium Oxalate Crystal Present Urine Bacteria None Seen (None Seen) Hyaline Casts 0-2 (0-2) /LPF Urine Yeast Present Influenza Type A (PCR) NEGATIVE (Negative) Influenza Type B (PCR) NEGATIVE (Negative) RSV RNA Qual (PCR) NEGATIVE (Negative) SARS-CoV-2 RNA (RT-PCR) NEGATIVE (Negative) Independent Interpretation I performed an independent interpretation of an: Plain X-Ray Radiology Impression Discussion of test interpretation with radiology: I have reviewed the radiologist's reading. Radiologist Impression: No cardiomegaly. Normal mediastinal contours. No pneumothorax. No opacity. No pleural effusion. Normal upper abdomen. No acute fracture. Impression: No acute findings. Critical Care Time Critical Care Time Critical Care Time: Yes Total Critical Care Time: 60 Attestation: I have personally provided critical care time. Time includes review of lab data, radiology results, discussion with consultants, and monitoring for potential decompensation. Intervention performed as documented. Discharge Plan Discharge Clinical Impression: Chronic wound Patient Disposition: Home, Self-Care Instructions: Chronic Wounds (ED) Additional Instructions: in the emergency room, blood pressure was constantly above 100 systolic, an did not have any oxygen desaturations. Patient's Vitals have been completely stable. Patient has been asymptomatic. White blood cell count is normal, normal lactic acid. Patient's blood pressure 116/51, heart rate 67, temperature 98.2 degrees, oxygen saturation 95% on room air. Patient's urinalysis did not have any nitrites but did have leukocyte esterase with a moderate amount of WBCs. This is likely chronic colonization. At this time, patient has no urinary tract infection symptoms. However, if the patient's urine culture or blood culture comes back positive, he will need to be sent back for hospitalization. continue current antibiotics as prescribed for osteomyelitis Prescriptions: No Action polyethylene glycol 3350 17 gram Powder In Packet 17 g PO DAILY Qty: 30 0RF Rx Instructions: Hold for loose stool. sennosides [senna] 8.6 mg Tablet 17.2 mg PO BEDTIME Rx Instructions: HOLD FOR LOOSE STOOL polyvinyl alcohol 1.4 % Drops 1 drp OPHTHALMIC (EYE) Q6H PRN (Reason: Dry Eyes) Rx Instructions: Both eyes thiamine HCl (vitamin B1) [Vitamin B-1] 100 mg Tablet 100 mg PO DAILY levothyroxine 100 mcg Tablet 100 mcg PO DAILY@0600 famotidine 20 mg Tablet 20 mg PO BEDTIME ascorbic acid (vitamin C) 500 mg Tablet 500 mg PO BID bisacodyl 10 mg Suppository 10 mg WV DAILY PRN (Reason: Constipation) Rx Instructions: If MoM not effective. ferrous sulfate 325 mg (65 mg iron) Tablet 325 mg PO BID gabapentin 100 mg Capsule 200 mg PO BID docusate sodium 100 mg Tablet 200 mg PO BID acetaminophen 325 mg tablet 650 mg PO Q6H PRN (Reason: Pain/Fever) amiodarone 200 mg tablet 200 mg PO DAILY finasteride 5 mg Tablet 5 mg PO DAILY Qty: 0 0RF melatonin 5 mg tablet 10 mg PO BEDTIME PRN (Reason: Insomnia) zinc acetate 50 mg (zinc) Capsule 50 mg PO DAILY ondansetron HCl 4 mg Tablet 4 mg PO Q8H PRN (Reason: Nausea And Vomiting) Fleet Enema 19-7 gram/118 mL Enema 118 ml WV DAILY PRN (Reason: Constipation) Santyl 250 unit/gram Ointment 1 appl TOPICAL DAILY Rx Instructions: apply to RIGHT HEEL Cold and Hot (menthol) 5 % Adhesive Patch,Medicated 1 patch TOPICAL DAILY Rx Instructions: apply to left knee Lactobacillus acidoph-L.bulgar 1 million cell Tablet 1 tab PO BID trazodone 50 mg Tablet 50 mg PO BEDTIME trazodone 50 mg Tablet 25 mg PO BID PRN (Reason: DEPRESSION) Rx Instructions: TAKE IN ADDITION TO 50 MG BEDTIME DOSE UNTIL 11/16/24 miconazole nitrate 2 % Cream 1 appl TOPICAL BID Rx Instructions: apply to coccyx aspirin 81 mg Tablet,Delayed Release (Dr/Ec) 81 mg PO DAILY magnesium hydroxide [Milk of Magnesia] 400 mg/5 mL Suspension 30 ml PO DAILY PRN (Reason: Constipation) pantoprazole 40 mg Tablet,Delayed Release (Dr/Ec) 40 mg PO BID@0630,1630 fluticasone propionate 50 mcg/actuation [place],Suspension 2 spray INTRANASAL DAILY Rx Instructions: administer into each nostril amoxicillin 875 mg tablet 875 mg PO BID Rx Instructions: TO TAKE THROUGH 11/30/24 atorvastatin 40 mg tablet 40 mg PO DAILY doxycycline hyclate 100 mg tablet 100 mg PO BID Rx Instructions: TAKE THROUGH 11/22/24 heparin, porcine (PF) 5,000 unit/0.5 mL Syringe 5,000 unit SUBCUT Q8H Rx Instructions: FOR PROPHYLAXIS RELATED TO OSTEOMYELITIS Vashe 0.033 % Irrigation Solution 1 irrig IRRIGATION QSHIFT PRN (Reason: WOUND CLEANING) doxazosin 2 mg tablet 2 mg PO BEDTIME Protocol: Hold for SBP< HOLD for SBP < : 90 diphenoxylate-atropine 2.5-0.025 mg/5 mL liquid 5 ml PO DAILY Qty: 60 0RF Rx Instructions: hold for constipation tramadol 50 mg Tablet 100 mg PO Q6H PRN (Reason: Pain) Print Language: Romanian
[2024-11-19 17:24] LABS: MANUAL DIFF FLAG NO
[2024-11-19] MEDS: oxyCODONE HCl Immed Release 5 MG TABLET PO (17:34)
[2024-11-19] MEDS: cefTRIAXone sodium 1 GM VIAL IVPUSH (17:34)
[2024-11-19 17:41] LABS: Lactic Acid 1.3 mmol/L (0.5-2.0)
[2024-11-19] MEDS: 0.9 % Sodium Chloride 1,000 ML 500 ML IV (17:41)
[2024-11-19 17:43] LABS: Alanine Aminotransferase 29 U/L (0-40); Anion Gap 12 (12-20); Aspartate Amino Transferase 40 U/L (5-37); Bilirubin Direct 0.1 mg/dL (0.0-0.5); Bilirubin Total 0.3 mg/dL (0.0-1.0); Blood Urea Nitrogen 45 mg/dL (9-16); Calcium 8.2 mg/dL (8.4-10.2); Carbon Dioxide 28 mmol/L (22-29); Chloride 103 mmol/L (96-108); Estimated Glomerular Filt Rate 52; Glucose Random 125 mg/dL (60-115); Potassium 4.6 mmol/L (3.3-5.1); Sodium 138 mmol/L (135-145)
[2024-11-19 17:52] LABS: Basophils Percent Auto 0.4 % (0-2); Eosinophils Absolute Auto 0.1 X10*3/uL (0.0-0.4); Eosinophils Percent Auto 1.3 % (0-4); Hemoglobin 7.2 g/dl (14.0-18.0); Imm Gran Abs Auto 0.03 X10*3/uL (0.00-0.03); Imm Gran Pct Auto 0.4 % (0.0-0.4); Lymphocytes Absolute Auto 1.3 X10*3/uL (1.2-4.9); Lymphocytes Percent Auto 15.2 % (20-40); Mean Corpuscular HGB Conc 31.3 g/dl (31.0-36.0); Mean Corpuscular Hemoglobin 27.6 pg (27.0-33.0); Mean Corpuscular Volume 88.1 fL (80.0-98.0); Mean Platelet Volume 9.4 fL (9.4-12.4); Monocytes Absolute Auto 1.2 X10*3/uL (0.1-1.2); Monocytes Percent Auto 13.7 % (2-11); Neutrophils Absolute Auto 5.9 x10*3/uL (2.0-8.3); Platelet Count 207 X10*3/uL (160-400); Red Blood Count 2.61 X10*6/uL (4.60-5.80); White Blood Count 8.6 X10*3/uL (4.8-10.8)
--- NOTE | 2024-11-19 17:57 | PC.NURSE ---
Addendum entered by Mahnaz Cortez RN 11/19/24 21:45: gave nurse to nurse report to supervisor phosphorus processing Stacia at [facility]. gave transport handover report to EMS. Original Note: patient arrived via ems a&ox3, pt initially hypotensive- upon changing sites his BP was wnl, additionally pts O2 sat was low, he was placed on O2 2L NC which brought it up WNL, per request of provider, pt was taken off O2 and hes maintaining low to mid 90s.. Pt was turned/positioned, dressings were changed with dr. horowitz to coccyx, buttocks and bilateral lower extremities- pictures were taken and sent to Dr. Horowitz to add to pts chart. pt has chronic desai patient/draining, labs and cultures drawn by tech, iv inserted by this nurse, ivf, abx given per order, pt medicated for pain to buttocks. Call brunson within reach plan of care ongoing
[2024-11-19 18:03] LABS: Influenza A PCR NEGATIVE (Negative); Influenza B PCR NEGATIVE (Negative); Resp Syncy Virus RNA Qual PCR NEGATIVE (Negative); SARS COV2 PCR INHOUSE NEGATIVE (Negative)
--- OUTSIDE RECORDS SUMMARY | 2024-11-19 18:06 | XMS_ITS | Encounter Summary ---
Author Organization [facility] Address [address] [place] [address] Care Team Providers Care Shell Sieve Operator Name Role Phone Uday Sheehan MD Primary Care Provider [phone] Encounter Details Date Type Department Care Team (Late st Contact Info) Description 09/25/2024 Lab Requisition [facility] - Main Lab [address] [place] [address] Tabby Bledsoe MD [address] [address] Chronic kidney disease, unspecified Social History Tobacco [...] LAB CHEMISTRY METHOD 09/25/2024 3:27 PM EDT [facility] ([facility]) [facility] Blood Venous blood specimen / Unknown Venipuncture / Unknown 09/25/2024 5:37 AM EDT 09/25/2024 11:49 AM EDT us Tabby Bledsoe MD LAB BLOOD ORDERABLES Fin al Result [facility] ([facility]) [facility] [address] [place] [address], documented in this encounter Visit Diagnoses Diagnosis Chronic kidney disease, unspecified documented in this encounter Additional Health Concerns Infection Onset Date Last Indicated Resolved Time ESBL 06/22/2024 06/22/2024 documented as of this encounter Care Teams Shell Sieve Operator Relationship Specialty Start Date End Date Uday Sheehan MD [address] [place] [address] Dr Donna MA PCP - General Rotary Soil Stabilizer 12/19/16 documented as of this encounter
--- OUTSIDE RECORDS SUMMARY | 2024-11-19 18:06 | XMS_ITS | Encounter Summary ---
Author Organization [facility] Address [address] [place] [address] Care Team Providers Care Bindery Helper Name Role Phone Uday Sheehan Primary Care Provider [phone] Encounter Details Date Type Department Care Team (Late st Contact Info) Description 04/29/2024 Lab Requisition [facility] Lab [address] [place] [address] Lidia Barry, CB [address] [place] [address] Acute and chronic respiratory failure with hypoxia; [...] - 10.8 10*3/uL 04/29/2024 1:00 PM EDT [facility] RBC 2.81(L) 4.70 - 6.10 10*6/uL 04/29/2024 1:00 PM EDT [facility] Hemoglobin 7.7(L) 13.7 - 16.5 g/dL 04/29/2024 1:00 PM EDT [facility] Hematocrit 24.5(L) 40.5 - 48.5 % 04/29/2024 1:00 PM EDT [facility] MCV 87.2 80.0 - 94.0 fL 04/29/2024 1:00 PM EDT [facility] MCH 27.4 26.0 - 34.0 pg 04/29/2024 1:00 PM EDT [facility] MCHC 31.4 31.0 - 36.0 g/dL 04/29/2024 1:00 PM EDT [facility] RDW 15.7(H) 12.0 - 15.0 % 04/29/2024 1:00 PM EDT [facility] RDW Standard Deviation 50.7(H) 35.1 - 43.9 fL 04/29/2024 1:00 PM EDT [facility] Platelets 141 140 - 440 10*3/uL 04/29/2024 1:00 PM EDT [facility] MPV 11.0 9.4 - 12.4 fL 04/29/2024 1:00 PM EDT [facility] Neutrophil % 51.9 50.0 - 75.0 % 04/29/2024 1:00 PM EDT [facility] Immature Grans % 0.2 0.0 - 0.9 % 04/29/2024 1:00 PM EDT [facility] Lymphocyte % 26.7 20.0 - 44.0 % 04/29/2024 1:00 PM EDT [facility] Monocyte % 14.3(H) 0.0 - 14.0 % 04/29/2024 1:00 PM EDT [facility] Eosinophil % 6.3(H) 0.0 - 5.0 % 04/29/2024 1:00 PM EDT [facility] Basophil % 0.6 0.0 - 2.0 % 04/29/2024 1:00 PM EDT [facility] Neutrophil # 2.47 1.80 - 7.70 10*3/uL 04/29/2024 1:00 PM EDT [facility] Immature Grans # <0.03 0.00 - 0.03 10*3/uL 04/29/2024 1:00 PM EDT [facility] Lymphocyte # 1.30 1.00 - 4.75 10*3/uL 04/29/2024 1:00 PM EDT [facility] Monocyte # 0.70 0.00 - 6.00 10*3/uL 04/29/2024 1:00 PM EDT [facility] Eosinophil # 0.30 0.00 - 0.80 10*3/uL 04/29/2024 1:00 PM EDT [facility] Basophil # <0.03 0.00 - 0.20 10*3/uL 04/29/2024 1:00 PM EDT [facility] nRBC % 0.0 0 - 0 /100 WBCs 04/29/2024 1:00 PM EDT [facility] nRBC # <0.01 0.00 - 0.13 10*3/uL 04/29/2024 1:00 PM EDT [facility] Blood Structure of peripheral vein / Unknown Venipuncture / Unknown 04/29/2024 12:28 PM EDT 04/29/2024 12:29 PM EDT us Lidia Barry [employer] LAB BLOOD ORDERABLES Final R esult [facility] [address] [place] [address], * (ABNORMAL) Comprehensive Metabolic Panel (04/29/2024 12:28 PM EDT) NA 140 136 - 145 mmol/L 04/29/2024 1:18 PM EDT [facility] K 3.8 3.5 - 5.1 mmol/L 04/29/2024 1:18 PM EDT [facility] Cl 99 98 - 109 mmol/L 04/29/2024 1:18 PM EDT [facility] CO2 32 22 - 32 mmol/L 04/29/2024 1:18 PM EDT [facility] Anion Gap 13 >=0 04/29/2024 1:18 PM EDT [facility] Glucose 92 60 - 99 mg/dL 04/29/2024 1:18 PM EDT [facility] Creatinine 1.44(H) 0.50 - 1.12 mg/dL 04/29/2024 1:18 PM EDT [facility] Calcium 9.5 8.4 - 10.4 mg/dL 04/29/2024 1:18 PM EDT [facility] Total Protein 6.1(L) 6.6 - 8.7 g/dL 04/29/2024 1:18 PM EDT [facility] Albumin 2.9(L) 3.5 - 5.0 g/dL 04/29/2024 1:18 PM EDT [facility] Bilirubin, Total 0.3 0.2 - 1.2 mg/dL 04/29/2024 1:18 PM EDT [facility] Alkaline Phosphatase 92 40 - 129 U/L 04/29/2024 1:18 PM EDT [facility] AST 43(H) 0 - 40 U/L 04/29/2024 1:18 PM EDT [facility] ALT 43(H) <=41 U/L 04/29/2024 1:18 PM EDT [facility] BUN 40(H) 8 - 23 mg/dL 04/29/2024 1:18 PM EDT [facility] eGFR 48(L) >=60 mL/min/1. 73m2 04/29/2024 1:18 PM EDT [facility] Comment:The estimated glomer ular [...] - 4.2 g/dL 04/29/2024 1:18 PM EDT [facility] A/G Ratio 0.9(L) 1.5 - 3.0 04/29/2024 1:18 PM EDT [facility] Blood Structure of peripheral vein / Unknown Venipuncture / Unknown 04/29/2024 12:28 PM EDT 04/29/2024 12:29 PM EDT [facility]idia [facility] LAB BLOOD ORDERABLES Final R esult [facility] [address] [place] [address] [address] [place] [address], documented in this encounter Visit Diagnoses Diagnosis Acute and chronic respiratory failure with hypoxia (HCC) No diagnosis documented in this encounter Additional Health Concerns Infection Onset Date Last Indicated Resolved Time 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
--- OUTSIDE RECORDS SUMMARY | 2024-11-19 18:06 | XMS_ITS | Encounter Summary ---
Author Organization [facility] Address [address] [place] [address] Care Team Providers Care Quality Assurance Representative Name Role Phone Uday Sheehan Primary Care Provider [phone] Encounter Details Date Type Department Care Team (Late st Contact Info) Description 04/24/2024 Lab Requisition [facility] [address] [place] [address] Lidia Barry, CB [address] [place] [address] Acute and chronic respiratory failure with hypoxia; [...] - 10.8 10*3/uL 04/24/2024 10:46 AM EDT [facility] RBC 2.90(L) 4.70 - 6.10 10*6/uL 04/24/2024 10:46 AM EDT [facility] Hemoglobin 8.1(L) 13.7 - 16.5 g/dL 04/24/2024 10:46 AM EDT [facility] Hematocrit 25.3(L) 40.5 - 48.5 % 04/24/2024 10:46 AM EDT [facility] MCV 87.2 80.0 - 94.0 fL 04/24/2024 10:46 AM EDT [facility] MCH 27.9 26.0 - 34.0 pg 04/24/2024 10:46 AM EDT [facility] MCHC 32.0 31.0 - 36.0 g/dL 04/24/2024 10:46 AM EDT [facility] RDW 16.2(H) 12.0 - 15.0 % 04/24/2024 10:46 AM EDT [facility] RDW Standard Deviation 51.6(H) 35.1 - 43.9 fL 04/24/2024 10:46 AM EDT [facility] Platelets 160 140 - 440 10*3/uL 04/24/2024 10:46 AM EDT [facility] MPV 10.7 9.4 - 12.4 fL 04/24/2024 10:46 AM EDT [facility] Neutrophil % 51.2 50.0 - 75.0 % 04/24/2024 10:46 AM EDT [facility] Immature Grans % 0.2 0.0 - 0.9 % 04/24/2024 10:46 AM EDT [facility] Lymphocyte % 24.6 20.0 - 44.0 % 04/24/2024 10:46 AM EDT [facility] Monocyte % 18.4(H) 0.0 - 14.0 % 04/24/2024 10:46 AM EDT [facility] Eosinophil % 5.1(H) 0.0 - 5.0 % 04/24/2024 10:46 AM EDT [facility] Basophil % 0.5 0.0 - 2.0 % 04/24/2024 10:46 AM EDT [facility] Neutrophil # 2.80 1.80 - 7.70 10*3/uL 04/24/2024 10:46 AM EDT [facility] Immature Grans # <0.03 0.00 - 0.03 10*3/uL 04/24/2024 10:46 AM EDT [facility] Lymphocyte # 1.40 1.00 - 4.75 10*3/uL 04/24/2024 10:46 AM EDT [facility] Monocyte # 1.00 0.00 - 6.00 10*3/uL 04/24/2024 10:46 AM EDT [facility] Eosinophil # 0.30 0.00 - 0.80 10*3/uL 04/24/2024 10:46 AM EDT [facility] Basophil # <0.03 0.00 - 0.20 10*3/uL 04/24/2024 10:46 AM EDT [facility] nRBC % 0.0 0 - 0 /100 WBCs 04/24/2024 10:46 AM EDT [facility] nRBC # <0.01 0.00 - 0.13 10*3/uL 04/24/2024 10:46 AM EDT [facility] Blood Structure of peripheral vein / Unknown Venipuncture / Unknown 04/24/2024 8:53 AM EDT 04/24/2024 10:36 AM EDT us Lidia Barry SUPER[employer]OR [employer] LAB BLOOD ORDERABLES Final R esult [facility] [address] [place] [address], * (ABNORMAL) Comprehensive Metabolic Panel (04/24/2024 8:53 AM EDT) NA 140 136 - 145 mmol/L 04/24/2024 11:40 AM EDT [facility] K 4.2 3.5 - 5.1 mmol/L 04/24/2024 11:40 AM EDT [facility] Cl 96(L) 98 - 109 mmol/L 04/24/2024 11:40 AM EDT [facility] CO2 33(H) 22 - 32 mmol/L 04/24/2024 11:40 AM EDT [facility] Anion Gap 15 >=0 04/24/2024 11:40 AM EDT [facility] Glucose 100(H) 60 - 99 mg/dL 04/24/2024 11:40 AM EDT [facility] Creatinine 1.60(H) 0.50 - 1.12 mg/dL 04/24/2024 11:40 AM EDT [facility] Calcium 9.6 8.4 - 10.4 mg/dL 04/24/2024 11:40 AM EDT [facility] Total Protein 5.9(L) 6.6 - 8.7 g/dL 04/24/2024 11:40 AM EDT [facility] Albumin 3.1(L) 3.5 - 5.0 g/dL 04/24/2024 11:40 AM EDT [facility] Bilirubin, Total 0.3 0.2 - 1.2 mg/dL 04/24/2024 11:40 AM EDT [facility] Alkaline Phosphatase 112 40 - 129 U/L 04/24/2024 11:40 AM EDT [facility] AST 32 0 - 40 U/L 04/24/2024 11:40 AM EDT [facility] ALT 33 <=41 U/L 04/24/2024 11:40 AM EDT [facility] BUN 53(H) 8 - 23 mg/dL 04/24/2024 11:40 AM EDT [facility] eGFR 42(L) >=60 mL/min/1. 73m2 04/24/2024 11:40 AM EDT [facility] Comment:The estimated glomer ular [...] - 4.2 g/dL 04/24/2024 11:40 AM EDT [facility] A/G Ratio 1.1(L) 1.5 - 3.0 04/24/2024 11:40 AM EDT [facility] Blood Structure of peripheral vein / Unknown Venipuncture / Unknown 04/24/2024 8:53 AM EDT 04/24/2024 10:36 AM EDT Lidia [facility] SUPER[employer]OR [employer] LAB BLOOD ORDERABLES Final R esult [facility] [address] [place] [address] [address] [place] [address], documented in this encounter Visit Diagnoses Diagnosis Acute and chronic respiratory failure with hypoxia (HCC) No diagnosis documented in this encounter Additional Health Concerns Infection Onset Date Last Indicated Resolved Time 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
--- OUTSIDE RECORDS SUMMARY | 2024-11-19 18:06 | XMS_ITS | Encounter Summary ---
Author Organization [facility] Address [address] [place] [address] Care Team Providers Care Sales Estimator Name Role Phone Uday Sheehan MD Primary Care Provider [phone] Encounter Details Date Type Department Care Team (Late st Contact Info) Description 08/03/2024 Lab Requisition [facility] Lab [address] [place] [address] Tabby Bledsoe MD [address] [address] Bacteremia Social History Tobacco Use Types Packs/Day [...] LAB CHEMISTRY METHOD 08/05/2024 1:55 PM EST [facility] Potassium 3.6 3.5 - 5.5 mmol/L LAB CHEMISTRY METHOD 08/05/2024 1:55 PM [facility] Chloride 106 96 - 110 mmol/L LAB CHEMISTRY METHOD 08/05/2024 1:55 PM [facility] CO2 25 21 - 32 mmol/L LAB CHEMISTRY METHOD 08/05/2024 1:55 PM [facility] Anion Gap 10 3 - 11 LAB CHEMISTRY METHOD 08/05/2024 1:55 PM [facility] Glucose 70 70 - 100 mg/dL LAB CHEMISTRY METHOD 08/05/2024 1:55 PM [facility] BUN 31(H) 5 - 25 mg/dL LAB CHEMISTRY METHOD 08/05/2024 1:55 PM [facility] Creatinine 2.20(H) 0.70 - 1.30 mg/dL LAB CHEMISTRY METHOD 08/05/2024 1:55 PM [facility] eGFR 29(L) >=60 mL/min/1. 73m2 LAB CHEMISTRY METHOD 08/05/2024 1:55 PM [facility] Comment:Calculation based on the??Chronic Kidney Disease Epidemiology Collaboration (CKD-EPI) equation refit??without adjustment for race. BUN/Creatinine Ratio 14.1 LAB CHEMISTRY METHOD 08/05/2024 1:55 PM [facility] Calcium 8.3(L) 8.5 - 10.5 mg/dL LAB CHEMISTRY METHOD 08/05/2024 1:55 PM [facility] AST (SGOT) 30 10 - 42 unit/L LAB CHEMISTRY METHOD 08/05/2024 1:55 PM [facility] ALT (SGPT) 17 10 - 60 unit/L LAB CHEMISTRY METHOD 08/05/2024 1:55 PM [facility] Alkaline Phosphatase 103 42 - 121 unit/L LAB CHEMISTRY METHOD 08/05/2024 1:55 PM [facility] Total Protein 5.4(L) 6.0 - 8.0 g/dL LAB CHEMISTRY METHOD 08/05/2024 1:55 PM EST [facility] Albumin 1.4(L) 3.2 - 5.0 g/dL LAB CHEMISTRY METHOD 08/05/2024 1:55 PM [facility] Total Bilirubin 0.3 0.0 - 1.4 mg/dL LAB CHEMISTRY METHOD 08/05/2024 1:55 PM [facility] Blood Venous blood specimen / Unknown Venipuncture / Unknown 08/05/2024 7:45 AM EST 08/05/2024 12:00 PM EST us Tabby Bledsoe MD LAB BLOOD ORDERABLES Fin al Result [facility] [address] [place] [address], [place] [phone] * (ABNORMAL) Complete blood count (08/05/2024 7:45 AM EST) WBC 11.9(H) 4.8 - 10.8 K/mcL LAB HEMETOLOGY METHOD 08/05/2024 1:29 PM [facility] RBC 2.50(L) 4.50 - 5.50 M/mcL LAB HEMETOLOGY METHOD 08/05/2024 1:29 PM [facility] Hemoglobin 6.5(L) 13.5 - 17.5 g/dL LAB HEMETOLOGY METHOD 08/05/2024 1:29 PM [facility] Hematocrit 22.0(L) 42.0 - 54.0 % LAB HEMETOLOGY METHOD 08/05/2024 1:29 PM [facility] MCV 87.6 79.0 - 98.0 FL LAB HEMETOLOGY METHOD 08/05/2024 1:29 PM [facility] MCH 25.9(L) 27.0 - 32.0 pcg LAB HEMETOLOGY METHOD 08/05/2024 1:29 PM [facility] MCHC 29.5(L) 32.0 - 37.0 g/dL LAB HEMETOLOGY METHOD 08/05/2024 1:29 PM EST [facility] RDW 19.6(H) 11.0 - 15.0 % LAB HEMETOLOGY METHOD 08/05/2024 1:29 PM [facility] Platelets 268 130 - 400 K/mcL LAB HEMETOLOGY METHOD 08/05/2024 1:29 PM [facility] MPV 9.0 7.0 - 11.0 FL LAB HEMETOLOGY METHOD 08/05/2024 1:29 PM [facility] NRBC 0.0 <1.0 % LAB HEMETOLOGY METHOD 08/05/2024 1:29 PM [facility] NRBC Absolute 0.00 <0.10 K/mcL LAB HEMETOLOGY METHOD 08/05/2024 1:29 PM [facility] Blood Venous blood specimen / Unknown Venipuncture / Unknown 08/05/2024 7:45 AM EST 08/05/2024 12:00 PM EST us Tabby Bledsoe MD LAB BLOOD ORDERABLES Fin al Result [facility] [address] [place] [address], documented in this encounter Visit Diagnoses Diagnosis Bacteremia documented in this encounter Additional Health Concerns Infection Onset Date Last Indicated Resolved Time ESBL 06/22/2024 06/22/2024 documented as of this encounter Care Teams Sales Estimator Relationship Specialty Start Date End Date Uday Sheehan MD [address] [place] [address] Dr Donna [place] PCP - General Dental Ceramist Assistant 12/19/16 documented as of this encounter
--- OUTSIDE RECORDS SUMMARY | 2024-11-19 18:06 | XMS_ITS | Encounter Summary ---
Author Organization [facility] Address [address] [place] [address] Care Team Providers Care Mushroom Spawn Maker Name Role Phone Uday Sheehan Primary Care Provider [phone] Encounter Details Date Type Department Care Team (Late st Contact Info) Description 05/07/2024 Lab Requisition [facility] Lab [address] [place] [address] Salo Whyte MD [address] [place] [address] Acute and chronic respiratory failure with hypoxia; [...] Uric Acid (05/07/2024 8:30 AM EDT) Pathologist [facility] Uric Acid 7.3(H) 3.4 - 7.0 mg/dL 05/07/2024 9:23 AM EDT [facility] Blood Structure of peripheral vein / Unknown Venipuncture / Unknown 05/07/2024 8:30 AM EDT 05/07/2024 8:30 AM EDT us Salo Whyte MD LAB BLOOD ORDERABLES Final Result Performing Organization Address [facility]/ZIP Co de Phone Number [facility] [address] [address], [place] [phone] * (ABNORMAL) TSH (05/07/2024 8:30 AM EDT) Pathologist [facility] TSH 9.930(H) 0.270 - 4.200 uIU/mL 05/07/2024 9:23 AM EDT [facility] Blood Structure of peripheral vein / Unknown Venipuncture / Unknown 05/07/2024 8:30 AM EDT 05/07/2024 8:30 AM EDT us Salo Whyte MD LAB BLOOD ORDERABLES Final Result Performing Organization Address [facility] Co de Phone Number [facility] [address] [place] [address], [place] [phone] * T4, Free (05/07/2024 8:30 AM EDT) Free T4 1.35 0.80 - 1.80 ng/dL 05/07/2024 9:23 AM EDT [facility] Comment: Females: (ng/dL) First Trimester [...] BLOOD ORDERABLES Final Result Performing Organization Address City/State/[facility] Co de Phone Number [facility] [address] [facility] [address] [place] [address], documented in this encounter Visit Diagnoses Diagnosis Acute and chronic respiratory failure with hypoxia (HCC) No diagnosis documented in this encounter Additional Health Concerns Infection Onset Date Last Indicated Resolved Time 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
--- OUTSIDE RECORDS SUMMARY | 2024-11-19 18:06 | XMS_ITS | Encounter Summary ---
Author Organization [facility] Address [address] [place] [address] Care Team Providers Care Knockdown Worker Name Role Phone Uday Sheehan Primary Care Provider [phone] Encounter Details Date Type Department Care Team (Late st Contact Info) Description 05/07/2024 Lab Requisition [facility] Department [address] [place] [address] Robert Whyte [address] [address] Acute and chronic respiratory failure with hypoxia; [...] of this encounter Procedures * Due to [place] state law, this organization might not be [...] in this encounter Results * Due to [place] state law, this organization might not be sharing negative HIV tests. * (ABNORMAL) Methicillin Resistant Staphylococcus aureus (MRSA) Culture Screen (05/07/2024 3:33 PM EDT) MRSA Culture Methicillin resistant Staphylococcus aureus (MRSA)(A) [place] [facility] 05/09/2024 9:10 AM EDT [facility] Swab Nasal structure / Unknown 05/07/2024 3:33 PM EDT 05/07/2024 4:19 PM EDT [facility] MICROBIOLOGY - GENERAL ORDER KIN[place] Final Result [facility] [address] [place] [address] [address] [place] [address], * (ABNORMAL) Respiratory Culture w/Gram Stain (05/07/2024 3:33 PM EDT) Respiratory Culture Moderate Methicillin resistant Staphylococcus aureus (MRSA)(A) MINIMUM INHIBITORY CONCENTRATION ([place]) 05/10/2024 8:39 AM EDT [facility] Gram Stain Result <10 per LPF Epithelial Cells 05/10/2024 8:39 AM EDT [facility] Gram Stain Result >25 per LPF White Blood Cells Seen 05/10/2024 8:39 AM EDT [facility] Gram Stain Result Rare Gram Positive Cocci 05/10/2024 8:39 AM EDT [facility] Gram Stain Result Rare Pleomorphic gram positive rods 05/10/2024 8:39 AM EDT [facility] Sputum Sputum / Unknown 05/07/2024 3:33 PM EDT 05/07/2024 3:33 PM EDT Narrative [facility] - 05/10/2024 8:39 AM EDT [...] Inducible Clindamycin Resistance has not been found. 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
--- OUTSIDE RECORDS SUMMARY | 2024-11-19 18:06 | XMS_ITS | Encounter Summary ---
Author Organization [facility] Address [address] [place] [address] Care Team Providers Care [place] Aide Name Role Phone Uday Sheehan MD Primary Care Provider [phone] Encounter Details Date Type Department Care Team (Late st Contact Info) Description 10/03/[address] [facility] - Main Lab [address] [place] [address] Tabby Bledsoe MD [address] [address] Anemia, unspecified Social History Tobacco Use Types [...] LAB CHEMISTRY METHOD 10/03/2024 11:29 AM EDT [facility] Potassium 4.9 3.5 - 5.5 mmol/L LAB CHEMISTRY METHOD 10/03/2024 11:29 AM [facility] Chloride 98 96 - 110 mmol/L LAB CHEMISTRY METHOD 10/03/2024 11:29 AM [facility] CO2 31 21 - 32 mmol/L LAB CHEMISTRY METHOD 10/03/2024 11:29 AM [facility] Anion Gap 6 3 - 11 LAB CHEMISTRY METHOD 10/03/2024 11:29 AM [facility] Glucose 87 70 - 100 mg/dL LAB CHEMISTRY METHOD 10/03/2024 11:29 AM [facility] BUN 36(H) 5 - 25 mg/dL LAB CHEMISTRY METHOD 10/03/2024 11:29 AM [facility] Creatinine 1.31(H) 0.70 - 1.30 mg/dL LAB CHEMISTRY METHOD 10/03/2024 11:29 AM [facility] eGFR 54(L) >=60 mL/min/1. 73m2 LAB CHEMISTRY METHOD 10/03/2024 11:29 AM [facility] Comment:Calculation based on the??Chronic Kidney Disease Epidemiology Collaboration (CKD-EPI) equation refit??without adjustment for race. BUN/Creatinine Ratio 27.5 LAB CHEMISTRY METHOD 10/03/2024 11:29 AM [facility] Calcium 8.1(L) 8.5 - 10.5 mg/dL LAB CHEMISTRY METHOD 10/03/2024 11:29 AM [facility] Blood Venous blood specimen / Unknown Venipuncture / Unknown 10/03/2024 5:24 AM EDT 10/03/2024 10:03 AM EDT us Tabby Bledsoe MD LAB BLOOD ORDERABLES Fin al Result [facility] [address] [place] [address], * (ABNORMAL) Complete blood count (10/03/2024 5:24 AM EDT) [facility] WBC 9.2 4.8 - 10.8 K/mcL LAB HEMETOLOGY METHOD 10/03/2024 10:27 AM [facility] RBC 2.40(L) 4.50 - 5.50 M/mcL LAB HEMETOLOGY METHOD 10/03/2024 10:27 AM [facility] Hemoglobin 6.6(L) 13.5 - 17.5 g/dL LAB HEMETOLOGY METHOD 10/03/2024 10:27 AM [facility] Hematocrit 22.2(L) 42.0 - 54.0 % LAB HEMETOLOGY METHOD 10/03/2024 10:27 AM [facility] MCV 92.1 79.0 - 98.0 FL LAB HEMETOLOGY METHOD 10/03/2024 10:27 AM [facility] MCH 27.4 27.0 - 32.0 pcg LAB HEMETOLOGY METHOD 10/03/2024 10:27 AM [facility] MCHC 29.7(L) 32.0 - 37.0 g/dL LAB HEMETOLOGY METHOD 10/03/2024 10:27 AM [facility] RDW 17.0(H) 11.0 - 15.0 % LAB HEMETOLOGY METHOD 10/03/2024 10:27 AM [facility] Platelets 273 130 - 400 K/mcL LAB HEMETOLOGY METHOD 10/03/2024 10:27 AM [facility] MPV 9.1 7.0 - 11.0 FL LAB HEMETOLOGY METHOD 10/03/2024 10:27 AM [facility] NRBC 0.0 <1.0 % LAB HEMETOLOGY METHOD 10/03/2024 10:27 AM [facility] NRBC Absolute 0.00 <0.10 K/mcL LAB HEMETOLOGY METHOD 10/03/2024 10:27 AM EDT [facility] Blood Venous blood specimen / Unknown Venipuncture / Unknown 10/03/2024 5:24 AM EDT 10/03/2024 10:03 AM EDT us Tabby Bledsoe MD LAB BLOOD ORDERABLES Fin al Result [facility] [address] [place] [address], documented in this encounter Visit Diagnoses Diagnosis Anemia, unspecified documented in this encounter Additional Health Concerns Infection Onset Date Last Indicated Resolved Time ESBL 06/22/2024 06/22/2024 documented as of this encounter Care Teams [place] Aide Relationship Specialty Start Date End Date Uday Sheehan MD [address] [place] [address] Dr Thompson [place] PCP - General Preforms Laminator 12/19/16 documented as of this encounter
--- OUTSIDE RECORDS SUMMARY | 2024-11-19 18:06 | XMS_ITS | Encounter Summary ---
Author Organization [facility] Address [address] [place] [address] Care Team Providers Care Exhibit Display Representative Name Role Phone Uday Sheehan Primary Care Provider [phone] Encounter Details Date Type Department Care Team (Late st Contact Info) Description 05/06/2024 Lab Requisition [facility] Lab [address] [place] [address] Salo Whyte MD [address] [place] [address] Acute and chronic respiratory failure with hypoxia; [...] - 10.8 10*3/uL 05/06/2024 11:12 AM EDT [facility] RBC 3.04(L) 4.70 - 6.10 10*6/uL 05/06/2024 11:12 AM EDT [facility] Hemoglobin 8.4(L) 13.7 - 16.5 g/dL 05/06/2024 11:12 AM EDT [facility] Hematocrit 26.9(L) 40.5 - 48.5 % 05/06/2024 11:12 AM EDT [facility] MCV 88.5 80.0 - 94.0 fL 05/06/2024 11:12 AM EDT [facility] MCH 27.6 26.0 - 34.0 pg 05/06/2024 11:12 AM EDT [facility] MCHC 31.2 31.0 - 36.0 g/dL 05/06/2024 11:12 AM EDT [facility] RDW 16.8(H) 12.0 - 15.0 % 05/06/2024 11:12 AM EDT [facility] RDW Standard Deviation 53.7(H) 35.1 - 43.9 fL 05/06/2024 11:12 AM EDT [facility] Platelets 179 140 - 440 10*3/uL 05/06/2024 11:12 AM EDT [facility] MPV 10.3 9.4 - 12.4 fL 05/06/2024 11:12 AM EDT [facility] Neutrophil % 55.7 50.0 - 75.0 % 05/06/2024 11:12 AM EDT [facility] Immature Grans % 0.3 0.0 - 0.9 % 05/06/2024 11:12 AM EDT [facility] Lymphocyte % 25.6 20.0 - 44.0 % 05/06/2024 11:12 AM EDT [facility] Monocyte % 12.2 0.0 - 14.0 % 05/06/2024 11:12 AM EDT [facility] Eosinophil % 5.7(H) 0.0 - 5.0 % 05/06/2024 11:12 AM EDT [facility] Basophil % 0.5 0.0 - 2.0 % 05/06/2024 11:12 AM EDT [facility] Neutrophil # 3.24 1.80 - 7.70 10*3/uL 05/06/2024 11:12 AM EDT [facility] Immature Grans # <0.03 0.00 - 0.03 10*3/uL 05/06/2024 11:12 AM EDT [facility] Lymphocyte # 1.50 1.00 - 4.75 10*3/uL 05/06/2024 11:12 AM EDT [facility] Monocyte # 0.70 0.00 - 6.00 10*3/uL 05/06/2024 11:12 AM EDT [facility] Eosinophil # 0.30 0.00 - 0.80 10*3/uL 05/06/2024 11:12 AM EDT [facility] Basophil # <0.03 0.00 - 0.20 10*3/uL 05/06/2024 11:12 AM EDT [facility] nRBC % 0.0 0 - 0 /100 WBCs 05/06/2024 11:12 AM EDT [facility] nRBC # <0.01 0.00 - 0.13 10*3/uL 05/06/2024 11:12 AM EDT [facility] Blood Structure of peripheral vein / Unknown Venipuncture / Unknown 05/06/2024 10:36 AM EDT 05/06/2024 10:36 AM EDT Salo Whyte MD LAB BLOOD ORDERABLES Final Result [facility] [address] [place] [address], * (ABNORMAL) Comprehensive Metabolic Panel (05/06/2024 10:36 AM EDT) NA 143 136 - 145 mmol/L 05/06/2024 11:24 AM EDT [facility] K 3.6 3.5 - 5.1 mmol/L 05/06/2024 11:24 AM EDT [facility] Cl 103 98 - 109 mmol/L 05/06/2024 11:24 AM EDT [facility] CO2 29 22 - 32 mmol/L 05/06/2024 11:24 AM EDT [facility] Anion Gap 15 >=0 05/06/2024 11:24 AM EDT [facility] Glucose 93 60 - 99 mg/dL 05/06/2024 11:24 AM EDT [facility] Creatinine 1.63(H) 0.50 - 1.12 mg/dL 05/06/2024 11:24 AM EDT [facility] Calcium 9.2 8.4 - 10.4 mg/dL 05/06/2024 11:24 AM EDT [facility] Total Protein 6.2(L) 6.6 - 8.7 g/dL 05/06/2024 11:24 AM EDT [facility] Albumin 3.0(L) 3.5 - 5.0 g/dL 05/06/2024 11:24 AM EDT [facility] Bilirubin, Total 0.3 0.2 - 1.2 mg/dL 05/06/2024 11:24 AM EDT [facility] Alkaline Phosphatase 102 40 - 129 U/L 05/06/2024 11:24 AM EDT [facility] AST 31 0 - 40 U/L 05/06/2024 11:24 AM EDT [facility] ALT 35 <=41 U/L 05/06/2024 11:24 AM EDT [facility] BUN 35(H) 8 - 23 mg/dL 05/06/2024 11:24 AM EDT [facility] eGFR 41(L) >=60 mL/min/1. 73m2 05/06/2024 11:24 AM EDT [facility] Comment:The estimated glomer ular [...] - 4.2 g/dL 05/06/2024 11:24 AM EDT [facility] A/G Ratio 0.9(L) 1.5 - 3.0 05/06/2024 11:24 AM EDT [facility] Blood Structure of peripheral vein / Unknown Venipuncture / Unknown 05/06/2024 10:36 AM EDT 05/06/2024 10:36 AM EDT Salo Whyte MD LAB BLOOD ORDERABLES Final Result [facility] [address] [place] [address] [address] [place] [address], documented in this encounter Visit Diagnoses Diagnosis Acute and chronic respiratory failure with hypoxia (HCC) No diagnosis documented in this encounter Additional Health Concerns Infection Onset Date Last Indicated Resolved Time 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
--- OUTSIDE RECORDS SUMMARY | 2024-11-19 18:06 | XMS_ITS | Encounter Summary ---
Author Organization [facility] Address [address] [place] [address] Care Team Providers Care Resident Care Aide Name Role Phone Uday Sheehan MD Primary Care Provider [phone] Encounter Details Date Type Department Care Team (Late st Contact Info) Description 09/18/2024 Lab Requisition [facility] - Main Lab [address] [place] [address] Tabby Bledsoe MD [address] [id number] Anemia, unspecified; Other disorders of electrolyte and [...] mmol/L LAB CHEMISTRY METHOD 09/18/2024 1:01 PM [facility] Potassium 4.1 3.5 - 5.5 mmol/L LAB CHEMISTRY METHOD 09/18/2024 1:01 PM [facility] Chloride 106 96 - 110 mmol/L LAB CHEMISTRY METHOD 09/18/2024 1:01 PM [facility] CO2 29 21 - 32 mmol/L LAB CHEMISTRY METHOD 09/18/2024 1:01 PM [facility] Anion Gap 6 3 - 11 LAB CHEMISTRY METHOD 09/18/2024 1:01 PM [facility] Glucose 81 70 - 100 mg/dL LAB CHEMISTRY METHOD 09/18/2024 1:01 PM [facility] BUN 25 5 - 25 mg/dL LAB CHEMISTRY METHOD 09/18/2024 1:01 PM [facility] Creatinine 1.40(H) 0.70 - 1.30 mg/dL LAB CHEMISTRY METHOD 09/18/2024 1:01 PM [facility] eGFR 50(L) >=60 mL/min/1. 73m2 LAB CHEMISTRY METHOD 09/18/2024 1:01 PM [facility] Comment:Calculation based on the??Chronic Kidney Disease Epidemiology Collaboration (CKD-EPI) equation refit??without adjustment for race. BUN/Creatinine Ratio 17.9 LAB CHEMISTRY METHOD 09/18/2024 1:01 PM [facility] Calcium 8.2(L) 8.5 - 10.5 mg/dL LAB CHEMISTRY METHOD 09/18/2024 1:01 PM [facility] AST (SGOT) 20 10 - 42 unit/L LAB CHEMISTRY METHOD 09/18/2024 1:01 PM [facility] ALT (SGPT) 10 10 - 60 unit/L LAB CHEMISTRY METHOD 09/18/2024 1:01 PM [facility] Alkaline Phosphatase 82 42 - 121 unit/L LAB CHEMISTRY METHOD 09/18/2024 1:01 PM EDT [facility] Total Protein 5.2(L) 6.0 - 8.0 g/dL LAB CHEMISTRY METHOD 09/18/2024 1:01 PM [facility] Albumin 1.3(L) 3.2 - 5.0 g/dL LAB CHEMISTRY METHOD 09/18/2024 1:01 PM EDT [facility] Total Bilirubin 0.3 0.0 - 1.4 mg/dL LAB CHEMISTRY METHOD 09/18/2024 1:01 PM EDT [facility] Blood Venous blood specimen / Unknown Venipuncture / Unknown 09/18/2024 8:38 AM EDT 09/18/2024 10:35 AM EDT us Tabby Bledsoe MD LAB BLOOD ORDERABLES Fin al Result [facility] [address] [place] [address], * (ABNORMAL) Complete blood count (09/18/2024 8:38 AM EDT) WBC 6.7 4.8 - 10.8 K/mcL LAB HEMETOLOGY METHOD 09/18/2024 12:22 PM [facility] RBC 2.70(L) 4.50 - 5.50 M/mcL LAB HEMETOLOGY METHOD 09/18/2024 12:22 PM [facility] Hemoglobin 7.5(L) 13.5 - 17.5 g/dL LAB HEMETOLOGY METHOD 09/18/2024 12:22 PM [facility] Hematocrit 25.5(L) 42.0 - 54.0 % LAB HEMETOLOGY METHOD 09/18/2024 12:22 PM [facility] MCV 94.8 79.0 - 98.0 FL LAB HEMETOLOGY METHOD 09/18/2024 12:22 PM EDT [facility] MCH 27.9 27.0 - 32.0 pcg LAB HEMETOLOGY METHOD 09/18/2024 12:22 PM EDT [facility] MCHC 29.4(L) 32.0 - 37.0 g/dL LAB HEMETOLOGY METHOD 09/18/2024 12:22 PM EDT [facility] RDW 16.5(H) 11.0 - 15.0 % LAB HEMETOLOGY METHOD 09/18/2024 12:22 PM EDT [facility] Platelets 192 130 - 400 K/mcL LAB HEMETOLOGY METHOD 09/18/2024 12:22 PM EDT [facility] MPV 9.9 7.0 - 11.0 FL LAB HEMETOLOGY METHOD 09/18/2024 12:22 PM EDT [facility] NRBC 0.0 <1.0 % LAB HEMETOLOGY METHOD 09/18/2024 12:22 PM EDT [facility] NRBC Absolute 0.00 <0.10 K/mcL LAB HEMETOLOGY METHOD 09/18/2024 12:22 PM [facility] Blood Venous blood specimen / Unknown Venipuncture / Unknown 09/18/2024 8:38 AM EDT 09/18/2024 10:35 AM EDT us Tabby Bledsoe MD LAB BLOOD ORDERABLES Fin al Result [facility] [address] [place] [address], documented in this encounter Visit Diagnoses Diagnosis Anemia, unspecified Other disorders of electrolyte and fluid balance, not elsewhere classified documented in this encounter Additional Health Concerns Infection Onset Date Last Indicated Resolved Time ESBL 06/22/2024 06/22/2024 documented as of this encounter Care Teams Resident Care Aide Relationship Specialty Start Date End Date Uday Sheehan MD [address] [facility] [address] Donna [place] PCP - General [place] 12/19/16 documented as of this encounter
--- OUTSIDE RECORDS SUMMARY | 2024-11-19 18:06 | XMS_ITS | Encounter Summary ---
Author Organization [facility] Address [address] [place] [address] Care Team Providers Care Paleobotanist Name Role Phone Uday Sheehan MD Primary Care Provider [phone] Encounter Details Date Type Department Care Team (Late st Contact Info) Description 08/09/2024 Lab Requisition [facility] - Main Lab [address] [facility] [place] [address] Tabby Bledsoe MD [address] [address] Bacteremia Social History Tobacco Use Types Packs/Day [...] documented as of this encounter Care Teams Paleobotanist Relationship Specialty Start Date End Date Uday Sheehan MD [address] [place] [address] PCP - General Bullet Lubricating Machine Operator 12/19/16 documented as of this encounter
--- OUTSIDE RECORDS SUMMARY | 2024-11-19 18:06 | XMS_ITS | Encounter Summary ---
Author Organization [facility] Address [address] [place] [address] Care Team Providers Care Director Of Reservations Name Role Phone Uday Sheehan Primary Care Provider [phone] Encounter Details Date Type Department Care Team (Late st Contact Info) Description 05/18/2024 Lab Requisition [facility] [address] [place] [address] Valarie Pierson MD [address] [place] [address] Acute and chronic respiratory failure with hypoxia; [...] encounter Procedures * Due to [place] iHandle law, this organization might not be sharing negative HIV tests. Procedure Name Priority Date/Time Associated Diagnosis Comments BASIC METABOLIC PANEL Routine 05/18/2024 6:18 AM EST Acute and chronic respiratory failure with hypoxia (HCC) No diagnosis documented in this encounter Results * Due to [place] iHandle law, this organization might not be sharing negative HIV tests. * (ABNORMAL) Basic Metabolic Panel (05/18/2024 6:18 AM EST) NA 143 136 - 145 mmol/L 05/18/2024 10:44 AM EST [facility] K 3.9 3.5 - 5.1 mmol/L 05/18/2024 10:44 AM EST [facility] Cl 104 98 - 109 mmol/L 05/18/2024 10:44 AM EST [facility] CO2 29 22 - 32 mmol/L 05/18/2024 10:44 AM EST [facility] BUN 33(H) 8 - 23 mg/dL 05/18/2024 10:44 AM EST [facility] Creatinine 1.70(H) 0.50 - 1.12 mg/dL 05/18/2024 10:44 AM [facility] Glucose 102(H) 60 - 99 mg/dL 05/18/2024 10:44 AM EST [facility] Calcium 9.3 8.4 - 10.4 mg/dL 05/18/2024 10:44 AM EST [facility] Anion Gap 14 >=0 05/18/2024 10:44 AM EST [facility] eGFR 39(L) >=60 mL/min/1. 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
--- OUTSIDE RECORDS SUMMARY | 2024-11-19 18:06 | XMS_ITS | Encounter Summary ---
Author Organization [facility] Address [address] [place] [address] Phone Care Team Providers Care Generator Man Name Role Phone Uday Sheehan MD Primary Care Provider [phone] Encounter Details Date Type Department Care Team (Late st Contact Info) Description 04/20/2022 Documentation Only [facility] [address] [place] [address] Adi Jaeger MD [address] [place] [address] [place] [address] Social History Tobacco Use Types [...] on filedocumented in this encounter Care Teams Generator Man Relationship Specialty Start Date End Date Uday Sheehan MD [address] [place] [address] [address] [place] PCP - General 05/14/19 documented as of this encounter
--- OUTSIDE RECORDS SUMMARY | 2024-11-19 18:06 | XMS_ITS | Encounter Summary ---
Author Organization [facility] Address [address] [place] [address] Care Team Providers Care Hot Plate Plywood Press Operator Name Role Phone Uday Sheehan Primary Care Provider [phone] Encounter Details Date Type Department Care Team (Late st Contact Info) Description 05/18/2024 Lab Requisition [facility] [address] [place] [address] No diagnosis Social History Tobacco Use Types [...] as of this encounter Care Teams Hot Plate Plywood Press Operator Relationship Specialty Start Date End Date Uday Sheehan [address] [place] [address] [place] [address] PCP - General Internal Medicine 03/27/24 documented as of this encounter
--- OUTSIDE RECORDS SUMMARY | 2024-11-19 18:06 | XMS_ITS | Encounter Summary ---
Author Organization [facility] Address [address] [place] [address] Care Team Providers Care Heel Slicker Name Role Phone Uday Sheehan MD Primary Care Provider Encounter Details Date Type Department Care Team (Late st Contact Info) Description 09/28/2024 Lab Requisition [facility] - Main Lab [address] [place] [address] Tabby Bledsoe MD [address] [address] Bacteremia Social History Tobacco Use Types Packs/Day [...] LAB CHEMISTRY METHOD 09/30/2024 11:57 AM EDT [facility] Potassium 4.7 3.5 - 5.5 mmol/L LAB CHEMISTRY METHOD 09/30/2024 11:57 AM [facility] Chloride 98 96 - 110 mmol/L LAB CHEMISTRY METHOD 09/30/2024 11:57 AM [facility] CO2 31 21 - 32 mmol/L LAB CHEMISTRY METHOD 09/30/2024 11:57 AM [facility] Anion Gap 6 3 - 11 LAB CHEMISTRY METHOD 09/30/2024 11:57 AM [facility] Glucose 132(H) 70 - 100 mg/dL LAB CHEMISTRY METHOD 09/30/2024 11:57 AM [facility] BUN 30(H) 5 - 25 mg/dL LAB CHEMISTRY METHOD 09/30/2024 11:57 AM [facility] Creatinine 1.22 0.70 - 1.30 mg/dL LAB CHEMISTRY METHOD 09/30/2024 11:57 AM [facility] eGFR 58(L) >=60 mL/min/1. 73m2 LAB CHEMISTRY METHOD 09/30/2024 11:57 AM [facility] Comment:Calculation based on the??Chronic Kidney Disease Epidemiology Collaboration (CKD-EPI) equation refit??without adjustment for race. BUN/Creatinine Ratio 24.6 LAB CHEMISTRY METHOD 09/30/2024 11:57 AM [facility] Calcium 8.1(L) 8.5 - 10.5 mg/dL LAB CHEMISTRY METHOD 09/30/2024 11:57 AM [facility] AST (SGOT) 45(H) 10 - 42 unit/L LAB CHEMISTRY METHOD 09/30/2024 11:57 AM [facility] ALT (SGPT) 45 10 - 60 unit/L LAB CHEMISTRY METHOD 09/30/2024 11:57 AM [facility] Alkaline Phosphatase 101 42 - 121 unit/L LAB CHEMISTRY METHOD 09/30/2024 11:57 AM [facility] Total Protein 5.5(L) 6.0 - 8.0 g/dL LAB CHEMISTRY METHOD 09/30/2024 11:57 AM T [facility] Albumin 1.4(L) 3.2 - 5.0 g/dL LAB CHEMISTRY METHOD 09/30/2024 11:57 AM EDT [facility] Total Bilirubin 0.3 0.0 - 1.4 mg/dL LAB CHEMISTRY METHOD 09/30/2024 11:57 AM EDT [facility] Blood Venous blood specimen / Unknown Venipuncture / Unknown 09/30/2024 8:29 AM EDT 09/30/2024 10:52 AM EDT us Tabby Bledsoe MD LAB BLOOD ORDERABLES Fin al Result [facility] [address] [place] [address], * (ABNORMAL) Complete blood count (09/30/2024 8:29 AM EDT) WBC 6.7 4.8 - 10.8 K/mcL LAB HEMETOLOGY METHOD 09/30/2024 11:44 AM [facility] RBC 2.40(L) 4.50 - 5.50 M/mcL LAB HEMETOLOGY METHOD 09/30/2024 11:44 AM [facility] Hemoglobin 6.6(L) 13.5 - 17.5 g/dL LAB HEMETOLOGY METHOD 09/30/2024 11:44 AM T [facility] Hematocrit 22.2(L) 42.0 - 54.0 % LAB HEMETOLOGY METHOD 09/30/2024 11:44 AM [facility] MCV 93.7 79.0 - 98.0 FL LAB HEMETOLOGY METHOD 09/30/2024 11:44 AM [facility] MCH 27.8 27.0 - 32.0 pcg LAB HEMETOLOGY METHOD 09/30/2024 11:44 AM EDT [facility] MCHC 29.7(L) 32.0 - 37.0 g/dL LAB HEMETOLOGY METHOD 09/30/2024 11:44 AM EDT [facility] RDW 16.7(H) 11.0 - 15.0 % LAB HEMETOLOGY METHOD 09/30/2024 11:44 AM EDT [facility] Platelets 271 130 - 400 K/mcL LAB HEMETOLOGY METHOD 09/30/2024 11:44 AM EDT [facility] MPV 9.4 7.0 - 11.0 FL LAB HEMETOLOGY METHOD 09/30/2024 11:44 AM EDT [facility] NRBC 0.0 <1.0 % LAB HEMETOLOGY METHOD 09/30/2024 11:44 AM EDT [facility] NRBC Absolute 0.00 <0.10 K/mcL LAB HEMETOLOGY METHOD 09/30/2024 11:44 AM T [facility] Blood Venous blood specimen / Unknown Venipuncture / Unknown 09/30/2024 8:29 AM EDT 09/30/2024 10:52 AM EDT us Tabby Bledsoe MD LAB BLOOD ORDERABLES Fin al Result [facility] [address] [place] [address], documented in this encounter Visit Diagnoses Diagnosis Bacteremia documented in this encounter Additional Health Concerns Infection Onset Date Last Indicated Resolved Time ESBL 06/22/2024 06/22/2024 documented as of this encounter Care Teams Heel Slicker Relationship Specialty Start Date End Date Uday Sheehan MD [address] [place] [address] Dr [place] PCP - General Construction Laborer 12/19/16 documented as of this encounter
--- OUTSIDE RECORDS SUMMARY | 2024-11-19 18:06 | XMS_ITS | Encounter Summary ---
Author Organization [facility] Address [address] [place] [address] Care Team Providers Care Flavor Room Worker Name Role Phone Uday Sheehan MD Primary Care Provider [phone] Encounter Details Date Type Department Care Team (Late st Contact Info) Description 09/20/2024 Lab Requisition [facility] - Main Lab [address] [place] [address] Tabby Bledsoe MD [address] [address] Bacteremia Social History Tobacco Use Types Packs/Day [...] LAB CHEMISTRY METHOD 09/23/2024 3:19 PM EDT [facility] Potassium 4.3 3.5 - 5.5 mmol/L LAB CHEMISTRY METHOD 09/23/2024 3:19 PM [facility] Chloride 99 96 - 110 mmol/L LAB CHEMISTRY METHOD 09/23/2024 3:19 PM [facility] CO2 30 21 - 32 mmol/L LAB CHEMISTRY METHOD 09/23/2024 3:19 PM [facility] Anion Gap 6 3 - 11 LAB CHEMISTRY METHOD 09/23/2024 3:19 PM [facility] Glucose 96 70 - 100 mg/dL LAB CHEMISTRY METHOD 09/23/2024 3:19 PM [facility] BUN 25 5 - 25 mg/dL LAB CHEMISTRY METHOD 09/23/2024 3:19 PM [facility] Creatinine 1.36(H) 0.70 - 1.30 mg/dL LAB CHEMISTRY METHOD 09/23/2024 3:19 PM [facility] eGFR 51(L) >=60 mL/min/1. 73m2 LAB CHEMISTRY METHOD 09/23/2024 3:19 PM [facility] Comment:Calculation based on the??Chronic Kidney Disease Epidemiology Collaboration (CKD-EPI) equation refit??without adjustment for race. BUN/Creatinine Ratio 18.4 LAB CHEMISTRY METHOD 09/23/2024 3:19 PM [facility] Calcium 8.1(L) 8.5 - 10.5 mg/dL LAB CHEMISTRY METHOD 09/23/2024 3:19 PM [facility] AST (SGOT) 63(H) 10 - 42 unit/L LAB CHEMISTRY METHOD 09/23/2024 3:19 PM [facility] ALT (SGPT) 45 10 - 60 unit/L LAB CHEMISTRY METHOD 09/23/2024 3:19 PM [facility] Alkaline Phosphatase 86 42 - 121 unit/L LAB CHEMISTRY METHOD 09/23/2024 3:19 PM [facility] Total Protein 5.3(L) 6.0 - 8.0 g/dL LAB CHEMISTRY METHOD 09/23/2024 3:19 PM EDT [facility] Albumin 1.4(L) 3.2 - 5.0 g/dL LAB CHEMISTRY METHOD 09/23/2024 3:19 PM EDT [facility] Total Bilirubin 0.3 0.0 - 1.4 mg/dL LAB CHEMISTRY METHOD 09/23/2024 3:19 PM EDT [facility] Blood Venous blood specimen / Unknown Venipuncture / Unknown 09/23/2024 7:46 AM EDT 09/23/2024 11:37 AM EDT us Tabby Bledsoe MD LAB BLOOD ORDERABLES Fin al Result [facility] [address] [place] [address], * (ABNORMAL) Complete blood count (09/23/2024 7:46 AM EDT) WBC 7.1 4.8 - 10.8 K/mcL LAB HEMETOLOGY METHOD 09/23/2024 12:42 PM [facility] RBC 2.60(L) 4.50 - 5.50 M/mcL LAB HEMETOLOGY METHOD 09/23/2024 12:42 PM [facility] Hemoglobin 7.2(L) 13.5 - 17.5 g/dL LAB HEMETOLOGY METHOD 09/23/2024 12:42 PM EDT [facility] Hematocrit 23.7(L) 42.0 - 54.0 % LAB HEMETOLOGY METHOD 09/23/2024 12:42 PM EDT [facility] MCV 91.5 79.0 - 98.0 FL LAB HEMETOLOGY METHOD 09/23/2024 12:42 PM [facility] MCH 27.8 27.0 - 32.0 pcg LAB HEMETOLOGY METHOD 09/23/2024 12:42 PM EDT [facility] MCHC 30.4(L) 32.0 - 37.0 g/dL LAB HEMETOLOGY METHOD 09/23/2024 12:42 PM EDT [facility] RDW 16.7(H) 11.0 - 15.0 % LAB HEMETOLOGY METHOD 09/23/2024 12:42 PM EDT [facility] Platelets 253 130 - 400 K/mcL LAB HEMETOLOGY METHOD 09/23/2024 12:42 PM EDT [facility] MPV 9.4 7.0 - 11.0 FL LAB HEMETOLOGY METHOD 09/23/2024 12:42 PM EDT [facility] NRBC 0.0 <1.0 % LAB HEMETOLOGY METHOD 09/23/2024 12:42 PM EDT [facility] NRBC Absolute 0.00 <0.10 K/mcL LAB HEMETOLOGY METHOD 09/23/2024 12:42 PM EDT [facility] Blood Venous blood specimen / Unknown Venipuncture / Unknown 09/23/2024 7:46 AM EDT 09/23/2024 11:37 AM EDT us Tabby Bledsoe MD LAB BLOOD ORDERABLES Fin al Result [facility] [address] [place] [address], documented in this encounter Visit Diagnoses Diagnosis Bacteremia documented in this encounter Additional Health Concerns Infection Onset Date Last Indicated Resolved Time ESBL 06/22/2024 06/22/2024 documented as of this encounter Care Teams Flavor Room Worker Relationship Specialty Start Date End Date Uday Sheehan MD [address] [place] [address] Dr Thompson [place] PCP - General Java Android Developer 12/19/16 documented as of this encounter
--- OUTSIDE RECORDS SUMMARY | 2024-11-19 18:06 | XMS_ITS | Encounter Summary ---
Author Organization [facility] Address [address] [place] [address] Care Team Providers Care Director Of Coding Name Role Phone Uday Sheehan Primary Care Provider [phone] Encounter Details Date Type Department Care Team (Late st Contact Info) Description 04/26/2024 Lab Requisition [facility] Lab [address] [place] [address] Ross Buchanan MD [address] [place] [address] Acute and chronic respiratory failure with hypoxia; [...] this encounter Procedures * Due to [place] state law, this organization might not be sharing negative HIV tests. Procedure Name Priority Date/Time Associated Diagnosis Comments MAGNESIUM Routine 04/26/2024 10:14 AM EDT Acute and chronic respiratory failure with hypoxia (HCC) No diagnosis COMPREHENSIVE METABOLIC PANEL Routine 04/26/2024 10:14 AM EDT Acute and chronic respiratory failure with hypoxia (HCC) No diagnosis documented in this encounter Results * Due to [place] state law, this organization might not be sharing negative HIV tests. * Magnesium (04/26/2024 10:14 AM EDT) MG 2.2 1.5 - 2.5 mg/dL 04/26/2024 10:52 AM EDT [facility] Blood Structure of peripheral vein / Unknown Venipuncture / Unknown 04/26/2024 10:14 AM EDT 04/26/2024 10:14 AM EDT us Ross Buchanan MD LAB BLOOD ORDERABLES Final R esult [facility] [address] [facility] [address] [place] [address], * (ABNORMAL) Comprehensive Metabolic Panel (04/26/2024 10:14 AM EDT) NA 140 136 - 145 mmol/L 04/26/2024 10:52 AM EDT [facility] K 3.8 3.5 - 5.1 mmol/L 04/26/2024 10:52 AM EDT [facility] Cl 98 98 - 109 mmol/L 04/26/2024 10:52 AM EDT [facility] CO2 34(H) 22 - 32 mmol/L 04/26/2024 10:52 AM EDT [facility] Anion Gap 12 >=0 04/26/2024 10:52 AM EDT [facility] Glucose 94 60 - 99 mg/dL 04/26/2024 10:52 AM EDT [facility] Creatinine 1.50(H) 0.50 - 1.12 mg/dL 04/26/2024 10:52 AM EDT [facility] Calcium 9.3 8.4 - 10.4 mg/dL 04/26/2024 10:52 AM EDT [facility] Total Protein 6.0(L) 6.6 - 8.7 g/dL 04/26/2024 10:52 AM EDT [facility] Albumin 2.9(L) 3.5 - 5.0 g/dL 04/26/2024 10:52 AM EDT [facility] Bilirubin, Total 0.3 0.2 - 1.2 mg/dL 04/26/2024 10:52 AM EDT [facility] Alkaline Phosphatase 113 40 - 129 U/L 04/26/2024 10:52 AM EDT [facility] AST 44(H) 0 - 40 U/L 04/26/2024 10:52 AM EDT [facility] ALT 40 <=41 U/L 04/26/2024 10:52 AM T [facility] BUN 51(H) 8 - 23 mg/dL 04/26/2024 10:52 AM T [facility] eGFR 46(L) >=60 mL/min/1. 73m2 04/26/2024 10:52 AM T [facility] Comment:The estimated glomer ular filtration [...] - 4.2 g/dL 04/26/2024 10:52 AM T [facility] A/G Ratio 0.9(L) 1.5 - 3.0 04/26/2024 10:52 AM [facility] Blood Structure of peripheral vein / Unknown Venipuncture / Unknown 04/26/2024 10:14 AM EDT 04/26/2024 10:14 AM EDT us Ross Buchanan MD LAB BLOOD ORDERABLES Final R esult [facility] [address] [place] [address], documented in this encounter Visit Diagnoses Diagnosis Acute and chronic respiratory failure with hypoxia (HCC) No diagnosis documented in this encounter Additional Health Concerns Infection Onset Date Last Indicated Resolved Time Multidrug resistant organisms MRSA 03/25/20242023 documented as of this encounter Care Teams Director Of Coding Relationship Specialty Start Date End Date Uday Sheehan [address] [place] [address] [place] [address] PCP - General Internal Medicine 03/27/24 documented as of this encounter
--- OUTSIDE RECORDS SUMMARY | 2024-11-19 18:06 | XMS_ITS | Encounter Summary ---
Author Organization [facility] Address [address] [place] [address] Care Team Providers Care Junior Assistant Manager Name Role Phone Uday Sheehan Primary Care Provider [phone] Encounter Details Date Type Department Care Team (Late st Contact Info) Description 05/14/2024 Lab Requisition [facility] [address] [place] [address] Valarie Pierson MD [address] [place] [address] Acute and chronic respiratory failure with hypoxia; [...] this encounter Procedures * Due to [place] [employer] law, this organization might not be sharing negative HIV tests. Procedure Name Priority Date/Time Associated Diagnosis Comments BASIC METABOLIC PANEL Routine 05/14/2024 10:15 AM EST Acute and chronic respiratory failure with hypoxia (HCC) No diagnosis documented in this encounter Results * Due to [place] [employer] law, this organization might not be sharing negative HIV tests. * (ABNORMAL) Basic Metabolic Panel (05/14/2024 10:15 AM EST) NA 141 136 - 145 mmol/L 05/14/2024 10:44 AM EST [facility] K 3.7 3.5 - 5.1 mmol/L 05/14/2024 10:44 AM EST [facility] Cl 102 98 - 109 mmol/L 05/14/2024 10:44 AM EST [facility] CO2 28 22 - 32 mmol/L 05/14/2024 10:44 AM EST [facility] BUN 34(H) 8 - 23 mg/dL 05/14/2024 10:44 AM EST [facility] Creatinine 1.69(H) 0.50 - 1.12 mg/dL 05/14/2024 10:44 AM [facility] Glucose 100(H) 60 - 99 mg/dL 05/14/2024 10:44 AM EST [facility] Calcium 9.4 8.4 - 10.4 mg/dL 05/14/2024 10:44 AM EST [facility] Anion Gap 15 >=0 05/14/2024 10:44 AM [facility] eGFR 40(L) >=60 mL/min/1. 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
--- OUTSIDE RECORDS SUMMARY | 2024-11-19 18:06 | XMS_ITS | Encounter Summary ---
Author Organization [facility] Address [address] [place] [address] Care Team Providers Care Fleet Sales Associate Name Role Phone Uday Sheehan Primary Care Provider [phone] Encounter Details Date Type Department Care Team (Late st Contact Info) Description 05/13/2024 Lab Requisition [facility] [address] [place] [address] Salo Whyte MD [address] [place] [address] Acute and chronic respiratory failure with hypoxia; [...] - 10.8 10*3/uL 05/13/2024 10:06 AM EST [facility] RBC 3.01(L) 4.70 - 6.10 10*6/uL 05/13/2024 10:06 AM EST [facility] Hemoglobin 8.3(L) 13.7 - 16.5 g/dL 05/13/2024 10:06 AM EST [facility] Hematocrit 26.0(L) 40.5 - 48.5 % 05/13/2024 10:06 AM EST [facility] MCV 86.4 80.0 - 94.0 fL 05/13/2024 10:06 AM EST [facility] MCH 27.6 26.0 - 34.0 pg 05/13/2024 10:06 AM [facility] MCHC 31.9 31.0 - 36.0 g/dL 05/13/2024 10:06 AM [facility] RDW 16.8(H) 12.0 - 15.0 % 05/13/2024 10:06 AM [facility] RDW Standard Deviation 53.1(H) 35.1 - 43.9 fL 05/13/2024 10:06 AM [facility] Platelets 143 140 - 440 10*3/uL 05/13/2024 10:06 AM EST [facility] MPV 10.6 9.4 - 12.4 fL 05/13/2024 10:06 AM [facility] Neutrophil % 57.3 50.0 - 75.0 % 05/13/2024 10:06 AM [facility] Immature Grans % 0.2 0.0 - 0.9 % 05/13/2024 10:06 AM [facility] Lymphocyte % 26.4 20.0 - 44.0 % 05/13/2024 10:06 AM EST [facility] Monocyte % 11.2 0.0 - 14.0 % 05/13/2024 10:06 AM EST [facility] Eosinophil % 4.6 0.0 - 5.0 % 05/13/2024 10:06 AM EST [facility] Basophil % 0.3 0.0 - 2.0 % 05/13/2024 10:06 AM EST [facility] Neutrophil # 3.36 1.80 - 7.70 10*3/uL 05/13/2024 10:06 AM EST [facility] Immature Grans # <0.03 0.00 - 0.03 10*3/uL 05/13/2024 10:06 AM EST [facility] Lymphocyte # 1.60 1.00 - 4.75 10*3/uL 05/13/2024 10:06 AM EST [facility] Monocyte # 0.70 0.00 - 6.00 10*3/uL 05/13/2024 10:06 AM EST [facility] Eosinophil # 0.30 0.00 - 0.80 10*3/uL 05/13/2024 10:06 AM EST [facility] Basophil # <0.03 0.00 - 0.20 10*3/uL 05/13/2024 10:06 AM EST [facility] nRBC % 0.0 0 - 0 /100 WBCs 05/13/2024 10:06 AM EST [facility] nRBC # <0.01 0.00 - 0.13 10*3/uL 05/13/2024 10:06 AM EST [facility] Blood Structure of peripheral vein / Unknown Venipuncture / Unknown 05/13/2024 9:32 AM EST 05/13/2024 9:32 AM EST us Salo Whyte MD LAB BLOOD ORDERABLES Final Result Performing Organization Address City/State/[facility] Co de Phone Number [facility] [address] [place] [address], [place] [phone] * (ABNORMAL) Comprehensive Metabolic Panel (05/13/2024 9:32 AM EST) NA 138 136 - 145 mmol/L 05/13/2024 10:36 AM EST [facility] K 3.6 3.5 - 5.1 mmol/L 05/13/2024 10:36 AM EST [facility] Cl 99 98 - 109 mmol/L 05/13/2024 10:36 AM EST [facility] CO2 30 22 - 32 mmol/L 05/13/2024 10:36 AM [facility] Anion Gap 13 >=0 05/13/2024 10:36 AM [facility] Glucose 118(H) 60 - 99 mg/dL 05/13/2024 10:36 AM [facility] Creatinine 1.73(H) 0.50 - 1.12 mg/dL 05/13/2024 10:36 AM [facility] Calcium 9.5 8.4 - 10.4 mg/dL 05/13/2024 10:36 AM [facility] Total Protein 6.1(L) 6.6 - 8.7 g/dL 05/13/2024 10:36 AM [facility] Albumin 3.0(L) 3.5 - 5.0 g/dL 05/13/2024 10:36 AM [facility] Bilirubin, Total 0.4 0.2 - 1.2 mg/dL 05/13/2024 10:36 AM [facility] Alkaline Phosphatase 102 40 - 129 U/L 05/13/2024 10:36 AM [facility] AST 18 0 - 40 U/L 05/13/2024 10:36 AM [facility] ALT 17 <=41 U/L 05/13/2024 10:36 AM [facility] BUN 36(H) 8 - 23 mg/dL 05/13/2024 10:36 AM [facility] eGFR 38(L) >=60 mL/min/1. 73m2 05/13/2024 10:36 AM EST [facility] Comment:The estimated glomer [...] - 4.2 g/dL 05/13/2024 10:36 AM EST [facility] A/G Ratio 1.0(L) 1.5 - 3.0 05/13/2024 10:36 AM EST [facility] Blood Structure of peripheral vein / Unknown Venipuncture / Unknown 05/13/2024 9:32 AM EST 05/13/2024 9:32 AM EST Salo Whyte MD LAB BLOOD ORDERABLES Final Result Performing Organization Address City/State/[facility] Co de Phone Number [facility] [address] [facility] [address] [place] [address], documented in this encounter Visit Diagnoses Diagnosis Acute and chronic respiratory failure with hypoxia (HCC) No diagnosis documented in this encounter Additional Health Concerns Infection Onset Date Last Indicated Resolved Time 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
--- OUTSIDE RECORDS SUMMARY | 2024-11-19 18:06 | XMS_ITS | Encounter Summary ---
Author Organization [facility] Address [address] [place] [address] Care Team Providers Care Video Tape Duplicator Name Role Phone Uday Sheehan MD Primary Care Provider [phone] Encounter Details Date Type Department Care Team (Late st Contact Info) Description 08/05/2024 Lab Requisition [facility] - Main Lab [address] [facility] [place] [address] Tabby Bledsoe MD [address] [facility] [address] [place] [address] Urinary tract infection, site not specified Social [...] Escherichia coli(A) FRANKLIN 08/07/2024 9:46 AM EST [facility] Comment: This is an edited result. [...] FRANKLIN <=0.25 ug/ml: Susceptible Escherichia coli Cefepime FRAKNLIN <=0.12 ug/ml: Susceptible Escherichia coli Meropenem FRANKLIN [...] Final Result [facility] [address] [place] [address], * (ABNORMAL) Urinalysis with reflex microscopic and culture (08/03/2024 7:00 AM EST) Pathologist [facility] Specific [place] Urine 1.014 1.003 - 1.030 LAB URINALYSIS - AUTOMATED METHOD 08/05/2024 1:39 PM [facility] pH, Urine 5.5 5.0 - 8.0 pH LAB URINALYSIS - AUTOMATED METHOD 08/05/2024 1:39 PM [facility] Leukocytes, Urine Large(A) Negative LAB URINALYSIS - AUTOMATED METHOD 08/05/2024 1:39 PM [facility] Nitrite, Urine Negative Negative LAB URINALYSIS - AUTOMATED METHOD 08/05/2024 1:39 PM [facility] Protein, Urine 30(A) <=Trace mg/dL LAB URINALYSIS - AUTOMATED METHOD 08/05/2024 1:39 PM [facility] Glucose, Urine Negative Negative mg/dL LAB URINALYSIS - AUTOMATED METHOD 08/05/2024 1:39 PM [facility] Ketones, Urine Negative Negative mg/dL LAB URINALYSIS - AUTOMATED METHOD 08/05/2024 1:39 PM [facility] Urobilinogen , Urine 0.2 0.2 - 1.0 mg/dL LAB URINALYSIS - AUTOMATED METHOD 08/05/2024 1:39 PM [facility] Bilirubin, Urine Negative Negative LAB URINALYSIS - AUTOMATED METHOD 08/05/2024 1:39 PM [facility] Blood, Urine Large(A) Negative LAB URINALYSIS - AUTOMATED METHOD 08/05/2024 1:39 PM [facility] RBC, Urine 271.0(H) 0 - 4 /HPF LAB URINALYSIS - AUTOMATED METHOD 08/05/2024 1:39 PM [facility] WBC, Urine 1,434.7(H) 0 - 4 /HPF LAB URINALYSIS - AUTOMATED METHOD 08/05/2024 1:39 PM [facility] Squamous Epithelial, Urine 41 0 - 60 /LPF LAB URINALYSIS - AUTOMATED METHOD 08/05/2024 1:39 PM [facility] Crystals, Urine MOD CALCIUM OXALATE /LPF LAB URINALYSIS - AUTOMATED METHOD 08/05/2024 1:39 PM [facility] Bacteria, Urine Many(A) Negative /HPF LAB URINALYSIS - AUTOMATED METHOD 08/05/2024 1:39 PM [facility] Hyaline Casts, Urine 8.1(H) 0 - 3 /LPF LAB URINALYSIS - AUTOMATED METHOD 08/05/2024 1:39 PM [facility] Urine Indwelling urinary catheter / Unknown Non-blood Collection / Unknown 08/03/2024 7:00 AM EST 08/05/2024 11:47 AM EST Tabby Bledsoe MD LAB URINE ORDERABLES Fin al Result Performing Organization Address [facility]/ZIP Co de Phone Number [facility] [address] [place] [address], [place] [phone] * Espinoza urine culture tube (08/03/2024 7:00 AM EST) Extra Tube Hold for add-ons. 08/05/2024 1:01 PM [facility] Comment:Auto resulted. Urine Indwelling urinary catheter / Unknown Non-blood Collection / Unknown 08/03/2024 7:00 AM EST 08/05/2024 11:47 AM EST Tabby Bledsoe MD LAB URINE ORDERABLES Fin al Result Performing Organization Address [facility]/ZIP Co de Phone Number [facility] [address] [place] [address], [place] [phone] documented in this encounter Visit Diagnoses Diagnosis Urinary tract infection, site not specified documented in this encounter Additional Health Concerns Infection Onset Date Last Indicated Resolved Time ESBL 06/22/2024 06/22/2024 documented as of this encounter Care Teams Video Tape Duplicator Relationship Specialty Start Date End Date Uday Sheehan MD [address] [place] [address] Dr [place], [place] PCP - General Mold Shifter 12/19/16 documented as of this encounter
--- OUTSIDE RECORDS SUMMARY | 2024-11-19 18:06 | XMS_ITS | Encounter Summary ---
Author Organization [facility] Address [address] [place] [address] Care Team Providers Care Concrete Engineer Name Role Phone Uday Sheehan Primary Care Provider [phone] Encounter Details Date Type Department Care Team (Late st Contact Info) Description 05/07/2024 Lab Requisition [facility] Site Department [address] [place] [address] [address] [address] Acute and chronic respiratory failure with hypoxia; [...] documented as of this encounter Care Teams Concrete Engineer Relationship Specialty Start Date End Date Uday Sheehan [address] [place] [address] [place] [address] PCP - General Internal Medicine 03/27/24 documented as of this encounter
--- OUTSIDE RECORDS SUMMARY | 2024-11-19 18:07 | XMS_ITS | Encounter Summary ---
Author Organization [facility] Address [address] [place] [address] Care Team Providers Care Jewish History Professor Name Role Phone Uday Sheehan Primary Care Provider [phone] Encounter Details Date Type Department Care Team (Late st Contact Info) Description 03/24/2024 Lab Requisition [facility] [address] [place] [address] Cecilio Bautista PA [address] [place] [address] Acute respiratory failure with hypoxia; No diagnosis [...] this encounter Procedures * Due to [place] [employer] law, this organization might not be sharing negative HIV tests. Procedure Name Priority Date/Time Associated Diagnosis Comments CBC AUTO DIFFERENTIAL Routine 03/24/2024 7:34 AM EDT Acute respiratory failure with hypoxia (HCC) No diagnosis documented in this encounter Results * Due to [place] [employer] law, this organization might not be sharing negative HIV tests. * (ABNORMAL) CBC Auto Differential (03/24/2024 7:34 AM EDT) [facility] WBC 9.2 4.8 - 10.8 10*3/uL 03/24/2024 10:37 AM EDT [facility] RBC 2.51(L) 4.70 - 6.10 10*6/uL 03/24/2024 10:37 AM EDT [facility] Hemoglobin 7.0(L) 13.7 - 16.5 g/dL 03/24/2024 10:37 AM EDT [facility] Hematocrit 22.5(L) 40.5 - 48.5 % 03/24/2024 10:37 AM EDT [facility] MCV 89.6 80.0 - 94.0 fL 03/24/2024 10:37 AM EDT [facility] MCH 27.9 26.0 - 34.0 pg 03/24/2024 10:37 AM EDT [facility] MCHC 31.1 31.0 - 36.0 g/dL 03/24/2024 10:37 AM EDT [facility] RDW 16.0(H) 12.0 - 15.0 % 03/24/2024 10:37 AM EDT [facility] RDW Standard Deviation 51.7(H) 35.1 - 43.9 fL 03/24/2024 10:37 AM EDT [facility] Platelets 186 140 - 440 10*3/uL 03/24/2024 10:37 AM EDT [facility] MPV 10.3 9.4 - 12.4 fL 03/24/2024 10:37 AM EDT [facility] Neutrophil % 59.1 50.0 - 75.0 % 03/24/2024 10:37 AM EDT [facility] Immature Grans % 0.3 0.0 - 0.9 % 03/24/2024 10:37 AM EDT [facility] Lymphocyte % 19.6(L) 20.0 - 44.0 % 03/24/2024 10:37 AM EDT [facility] Monocyte % 15.5(H) 0.0 - 14.0 % 03/24/2024 10:37 AM EDT [facility] Eosinophil % 4.8 0.0 - 5.0 % 03/24/2024 10:37 AM EDT [facility] Basophil % 0.7 0.0 - 2.0 % 03/24/2024 10:37 AM EDT [facility] Neutrophil # 5.45 1.80 - 7.70 10*3/uL 03/24/2024 10:37 AM EDT [facility] Immature Grans # 0.03 0.00 - 0.03 10*3/uL 03/24/2024 10:37 AM EDT [facility] Lymphocyte # 1.80 1.00 - 4.75 10*3/uL 03/24/2024 10:37 AM EDT [facility] Monocyte # 1.40 0.00 - 6.00 10*3/uL 03/24/2024 10:37 AM EDT [facility] Eosinophil # 0.40 0.00 - 0.80 10*3/uL 03/24/2024 10:37 AM EDT [facility] Basophil # 0.10 0.00 - 0.20 10*3/uL 03/24/2024 10:37 AM EDT [facility] nRBC % 0.0 0 - 0 /100 WBCs 03/24/2024 10:37 AM EDT [facility] nRBC # <0.01 0.00 - 0.13 10*3/uL 03/24/2024 10:37 AM EDT [facility] Blood Structure of peripheral vein / Unknown Venipuncture / Unknown 03/24/2024 7:34 AM EDT 03/24/2024 10:31 AM EDT us Cecilio ZHU LAB BLOOD ORDERABLES Final R esult [facility] [address] [facility] [address] [place] [address], [place] [phone] documented in this encounter Visit Diagnoses Diagnosis [...] documented as of this encounter Care Teams Jewish History Professor Relationship Specialty Start Date End Date Uday Sheehan [address] [place] [address] dr Donna Thompson, ALEC [address] PCP - General Internal Medicine 03/27/24 documented as of this encounter
--- OUTSIDE RECORDS SUMMARY | 2024-11-19 18:07 | XMS_ITS | Encounter Summary ---
Author Organization [facility] Address [address] [place] [address] Care Team Providers Care Select Banker Name Role Phone Uday Sheehan MD Primary Care Provider [phone] Encounter Details Date Type Department Care Team (Late st Contact Info) Description 06/21/[address] [facility] - Main Lab [address] [place] [address] Zak Zuluaga MD [address] [place] [address] Unspecified kidney failure; COVID-19 Social History Tobacco [...] LAB CHEMISTRY METHOD 06/21/2024 11:17 AM EST [facility] Potassium 4.3 3.5 - 5.5 mmol/L LAB CHEMISTRY METHOD 06/21/2024 11:17 AM EST [facility] Chloride 114(H) 96 - [...] MD LAB BLOOD ORDERABLES Final Resul t [facility] [address] [place] [address], documented in this encounter Visit Diagnoses Diagnosis Unspecified kidney failure COVID-19 documented in this encounter Additional Health Concerns Infection Onset Date Last Indicated Resolved Time ESBL 06/22/2024 06/22/2024 documented as of this encounter Care Teams Select Banker Relationship Specialty Start Date End Date Uday Sheehan MD [address] [place] [address] Dr Donna [place] PCP - General Client Onboarding Analyst 12/19/16 documented as of this encounter
--- OUTSIDE RECORDS SUMMARY | 2024-11-19 18:07 | XMS_ITS | Encounter Summary ---
Author Organization [facility] Address [address] [place] [address] Care Team Providers Care Riding Teacher Name Role Phone Uday Sheehan MD Primary Care Provider [phone] Encounter Details Date Type Department Care Team (Late st Contact Info) Description 06/23/2024 Lab Requisition [facility] - Main Lab [address] [place] [address] Pearl Garcia MD [address] [place] [address] Other retention of urine Social [...] reflex microscopic (06/22/2024 12:00 AM EST) Specific [place] Urine 1.013 1.003 - 1.030 LAB URINALYSIS - AUTOMATED METHOD 06/23/2024 12:51 PM [facility] pH, Urine 6.0 5.0 - 8.0 pH LAB URINALYSIS - AUTOMATED METHOD 06/23/2024 12:51 PM [facility] Leukocytes, Urine Large(A) Negative LAB URINALYSIS - AUTOMATED METHOD 06/23/2024 12:51 PM [facility] Nitrite, Urine Negative Negative LAB URINALYSIS - AUTOMATED METHOD 06/23/2024 12:51 PM [facility] Protein, Urine 100(A) <=Trace mg/dL LAB URINALYSIS - AUTOMATED METHOD 06/23/2024 12:51 PM [facility] Glucose, Urine Negative Negative mg/dL LAB URINALYSIS - AUTOMATED METHOD 06/23/2024 12:51 PM [facility] Ketones, Urine Negative Negative mg/dL LAB URINALYSIS - AUTOMATED METHOD 06/23/2024 12:51 PM [facility] Urobilinogen , Urine 0.2 0.2 - 1.0 mg/dL LAB URINALYSIS - AUTOMATED METHOD 06/23/2024 12:51 PM [facility] Bilirubin, Urine Negative Negative LAB URINALYSIS - AUTOMATED METHOD 06/23/2024 12:51 PM [facility] Blood, Urine Large(A) Negative LAB URINALYSIS - AUTOMATED METHOD 06/23/2024 12:51 PM [facility] RBC, Urine 32.8(H) 0 - 4 /HPF LAB URINALYSIS - AUTOMATED METHOD 06/23/2024 12:51 PM [facility] WBC, Urine 3,850.2(H) 0 - 4 /HPF LAB URINALYSIS - AUTOMATED METHOD 06/23/2024 12:51 PM [facility] Squamous Epithelial, Urine 20 0 - 60 /LPF LAB URINALYSIS - AUTOMATED METHOD 06/23/2024 12:51 PM [facility] Bacteria, Urine Many(A) Negative /HPF LAB URINALYSIS - AUTOMATED METHOD 06/23/2024 12:51 PM EST [facility] Hyaline Casts, Urine 2.9 0 - 3 /LPF LAB URINALYSIS - AUTOMATED METHOD 06/23/2024 12:51 PM EST [facility] Urine Urine specimen obtained by clean catch procedure / Unknown Non-blood Collection / Unknown 06/22/2024 06/23/2024 11:44 AM EST us Pearl Garcia MD LAB URINE ORDERABLES Final Resul t [facility] [address] [place] [address], * (ABNORMAL) Culture urine (06/22/2024 12:00 AM EST) Culture, Urine >100,000 CFU/mL Klebsiella pneumoniae ESBL(A) [place] 06/26/2024 7:51 AM EST [facility] Comment: THIS ORGANISM IS POSITIVE FOR EXTENDED SPECTRUM BETA-LACTAMASE (ESBL). ??EXTENDED SPECTRUM BETA-LACTAMASE ??PRODUCING ORGANISMS DEMONSTRATE DECREASED ACTIVITY WITH PENICILLILNS, CEPHALOSPORINS AND AZTREONAM. This is an edited result. Previous organism was Gram negative bacilli on 06/24/2024 at 1028 EST. Culture, Urine >100,000 CFU/mL Escherichia coli(A) [place] 06/26/2024 7:51 AM EST [facility] Comment: The organism value [...] MICROBIOLOGY - GENERAL ORDER KINSEY Final Result [facility] [address] [place] [address], documented in this encounter Visit Diagnoses Diagnosis Other retention of urine documented in this encounter Additional Health Concerns Infection Onset Date Last Indicated Resolved Time ESBL 06/22/2024 06/22/2024 documented as of this encounter Care Teams Riding Teacher Relationship Specialty Start Date End Date Uday Sheehan MD [address] [place] [address] Dr Donna [place] PCP - General Journeyman Pipe Fitter 12/19/16 documented as of this encounter
--- OUTSIDE RECORDS SUMMARY | 2024-11-19 18:07 | XMS_ITS | Encounter Summary ---
Author Organization [facility] Address [address] [place] [address] Care Team Providers Care Cushion Sewer Name Role Phone Uday Sheehan MD Primary Care Provider [phone] Encounter Details Date Type Department Care Team (Late st Contact Info) Description 08/31/[address] [facility] - Main Lab [address] [facility] [place] [address] Tabby Bledsoe MD [address] [address] Bacteremia Social History Tobacco Use Types Packs/Day [...] documented as of this encounter Care Teams Cushion Sewer Relationship Specialty Start Date End Date Uday Sheehan MD [address] [place] [address] PCP - General Health Information Tech 12/19/16 documented as of this encounter
--- OUTSIDE RECORDS SUMMARY | 2024-11-19 18:07 | XMS_ITS | Encounter Summary ---
Author Organization [facility] Address [address] [place] [address] Care Team Providers Care Gyn Name Role Phone Uday Sheehan MD Primary Care Provider [phone] Encounter Details Date Type Department Care Team (Late st Contact Info) Description 09/04/2024 Lab Requisition [facility] - Main Lab [address] [facility] [place] [address] Tabby Bledsoe MD [address] [address] Sequelae of unspecified nutritional deficiency; Encounter for [...] Vancomycin random (09/04/2024 7:02 AM EST) Pathologist [facility] Vancomycin Rm 18.9 mcg/mL LAB CHEMISTRY METHOD 09/04/2024 12:36 PM EST [facility] Blood Venous blood specimen / Unknown Venipuncture / Unknown 09/04/2024 7:02 AM EST 09/04/2024 9:13 AM EST Tabby Bledsoe MD LAB BLOOD ORDERABLES Fin al Result [facility] [address] [place] [address], [place] [phone] * Vancomycin, trough (09/04/2024 7:02 AM EST) [facility] Vancomycin Trough 19.0 10.0 - 20.0 mcg/mL LAB CHEMISTRY METHOD 09/04/2024 10:59 AM EST [facility] Blood Venous blood specimen / Unknown Venipuncture / Unknown 09/04/2024 7:02 AM EST 09/04/2024 9:13 AM EST Tabby Bledsoe MD LAB BLOOD ORDERABLES Fin al Result Performing Organization Address City/[facility]/ZIP Co de Phone Number [facility] [address] [place] [address], [place] [phone] * (ABNORMAL) Comprehensive metabolic panel (09/04/2024 7:02 AM EST) [facility] Sodium 142 133 - 145 mmol/L LAB CHEMISTRY METHOD 09/04/2024 11:02 AM EST [facility] Potassium 3.9 3.5 - 5.5 mmol/L LAB CHEMISTRY METHOD 09/04/2024 11:02 AM EST [facility] Chloride 107 96 [...] Result [facility] [address] [place] [address], * (ABNORMAL) Complete blood count (09/04/2024 7:02 [...] LAB HEMETOLOGY METHOD 09/04/2024 10:55 AM EST [facility] RDW 17.0(H) 11.0 - 15.0 % LAB HEMETOLOGY METHOD 09/04/2024 10:55 AM EST [facility] Platelets 269 130 - 400 K/mcL LAB HEMETOLOGY METHOD 09/04/2024 10:55 AM EST [facility] MPV 9.5 7.0 - 11.0 FL LAB HEMETOLOGY METHOD 09/04/2024 10:55 AM EST [facility] [...] Result [facility] [address] [place] [address], documented in this encounter Visit Diagnoses Diagnosis Sequelae of unspecified nutritional deficiency Encounter for therapeutic drug level monitoring documented in this encounter Additional Health Concerns Infection Onset Date Last Indicated Resolved Time ESBL 06/22/2024 06/22/2024 documented as of this encounter Care Teams Gyn Relationship Specialty Start Date End Date Uday Sheehan MD [address] [facility] [address] Donna [place] PCP - General Manager Heart Failure 12/19/16 documented as of this encounter
--- OUTSIDE RECORDS SUMMARY | 2024-11-19 18:07 | XMS_ITS | Encounter Summary ---
Author Organization [facility] Address [address] [place] [address] Care Team Providers Care Railroad Dining Car Stewardess Name Role Phone Uday Sheehan MD Primary Care Provider [phone] Encounter Details Date Type Department Care Team (Late st Contact Info) Description 07/11/2024 Lab Requisition [facility] - Main Lab [address] [place] [address] Tabby Bledsoe MD [address] [address] Acute kidney failure, unspecified (CMS/HCC V24) Social [...] LAB CHEMISTRY METHOD 07/11/2024 11:14 AM EST [facility] Potassium 4.1 3.5 - 5.5 mmol/L LAB CHEMISTRY METHOD 07/11/2024 11:14 AM [facility] Chloride 113(H) 96 - 110 mmol/L LAB CHEMISTRY METHOD 07/11/2024 11:14 AM [facility] CO2 31 21 - 32 mmol/L LAB CHEMISTRY METHOD 07/11/2024 11:14 AM [facility] Anion Gap 3 3 - 11 LAB CHEMISTRY METHOD 07/11/2024 11:14 AM [facility] Glucose 100 70 - 100 mg/dL LAB CHEMISTRY METHOD 07/11/2024 11:14 AM [facility] BUN 29(H) 5 - 25 mg/dL LAB CHEMISTRY METHOD 07/11/2024 11:14 AM [facility] Creatinine 1.31(H) 0.70 - 1.30 mg/dL LAB CHEMISTRY METHOD 07/11/2024 11:14 AM [facility] eGFR 54(L) >=60 mL/min/1. 73m2 LAB CHEMISTRY METHOD 07/11/2024 11:14 AM [facility] Comment:Calculation based on the??Chronic Kidney Disease Epidemiology Collaboration (CKD-EPI) equation refit??without adjustment for race. BUN/Creatinine Ratio 22.1 LAB CHEMISTRY METHOD 07/11/2024 11:14 AM [facility] Calcium 10.3 8.5 - 10.5 mg/dL LAB CHEMISTRY METHOD 07/11/2024 11:14 AM [facility] AST (SGOT) 36 10 - 42 unit/L LAB CHEMISTRY METHOD 07/11/2024 11:14 AM [facility] ALT (SGPT) 23 10 - 60 unit/L LAB CHEMISTRY METHOD 07/11/2024 11:14 AM [facility] Alkaline Phosphatase 127(H) 42 - 121 unit/L LAB CHEMISTRY METHOD 07/11/2024 11:14 AM EST [facility] Total Protein 5.8(L) 6.0 - 8.0 g/dL LAB CHEMISTRY METHOD 07/11/2024 11:14 AM [facility] Albumin 1.6(L) 3.2 - 5.0 g/dL LAB CHEMISTRY METHOD 07/11/2024 11:14 AM [facility] Total Bilirubin 0.4 0.0 - 1.4 mg/dL LAB CHEMISTRY METHOD 07/11/2024 11:14 AM [facility] Blood Venous blood specimen / Unknown Venipuncture / Unknown 07/11/2024 5:17 AM EST 07/11/2024 10:02 AM EST us Tabby Bledsoe MD LAB BLOOD ORDERABLES Fin al Result [facility] [address] [place] [address], * (ABNORMAL) Complete blood count (07/11/2024 5:17 AM EST) WBC 6.4 4.8 - 10.8 K/mcL LAB HEMETOLOGY METHOD 07/11/2024 10:30 AM [facility] RBC 2.80(L) 4.50 - 5.50 M/mcL LAB HEMETOLOGY METHOD 07/11/2024 10:30 AM [facility] Hemoglobin 7.3(L) 13.5 - 17.5 g/dL LAB HEMETOLOGY METHOD 07/11/2024 10:30 AM [facility] Hematocrit 24.5(L) 42.0 - 54.0 % LAB HEMETOLOGY METHOD 07/11/2024 10:30 AM [facility] MCV 87.8 79.0 - 98.0 FL LAB HEMETOLOGY METHOD 07/11/2024 10:30 AM [facility] MCH 26.2(L) 27.0 - 32.0 pcg LAB HEMETOLOGY METHOD 07/11/2024 10:30 AM EST [facility] MCHC 29.8(L) 32.0 - 37.0 g/dL LAB HEMETOLOGY METHOD 07/11/2024 10:30 AM [facility] RDW 19.2(H) 11.0 - 15.0 % LAB HEMETOLOGY METHOD 07/11/2024 10:30 AM EST [facility] Platelets 210 130 - 400 K/mcL LAB HEMETOLOGY METHOD 07/11/2024 10:30 AM [facility] MPV 10.2 7.0 - 11.0 FL LAB HEMETOLOGY METHOD 07/11/2024 10:30 AM [facility] NRBC 0.0 <1.0 % LAB HEMETOLOGY METHOD 07/11/2024 10:30 AM [facility] NRBC Absolute 0.00 <0.10 K/mcL LAB HEMETOLOGY METHOD 07/11/2024 10:30 AM [facility] Blood Venous blood specimen / Unknown Venipuncture / Unknown 07/11/2024 5:17 AM EST 07/11/2024 10:02 AM EST us Tabby Bledsoe MD LAB BLOOD ORDERABLES Fin al Result [facility] [address] [place] [address], documented in this encounter Visit Diagnoses Diagnosis Acute kidney failure, unspecified (CMS/HCC V24) Acute kidney failure, unspecified documented in this encounter Additional Health Concerns Infection Onset Date Last Indicated Resolved Time ESBL 06/22/2024 06/22/2024 documented as of this encounter Care Teams Railroad Dining Car Stewardess Relationship Specialty Start Date End Date Uday Sheehan MD [address] [facility] [address] Donna [place] PCP - General Wind Instrument Repairer 12/19/16 documented as of this encounter
--- OUTSIDE RECORDS SUMMARY | 2024-11-19 18:07 | XMS_ITS | Encounter Summary ---
Author Organization [facility] Address [address] [place] [address] Care Team Providers Care Supreme Court Justice Name Role Phone Uday Sheehan MD Primary Care Provider [phone] Encounter Details Date Type Department Care Team (Late st Contact Info) Description 09/05/2024 Lab Requisition [facility] - Main Lab [address] [place] [address] Tabby Bledsoe MD [address] [address] Osteomyelitis, unspecified (CMS/HCC V24, CMS/HCC V28); Extended [...] LAB CHEMISTRY METHOD 09/05/2024 10:44 AM EST [facility] Blood Venous blood specimen / Unknown Venipuncture / Unknown 09/05/2024 6:37 AM EST 09/05/2024 9:06 AM EST us Tabby Bledsoe MD LAB BLOOD ORDERABLES Fin al Result [facility] ([facility]) [facility] [address] [place] [address], documented in this encounter Visit Diagnoses Diagnosis Osteomyelitis, unspecified ([facility] V24, [facility] V28) Extended spectrum beta lactamase (ESBL) resistance documented in this encounter Additional Health Concerns Infection Onset Date Last Indicated Resolved Time ESBL 06/22/2024 06/22/2024 documented as of this encounter Care Teams Supreme [address] Justice Relationship Specialty Start Date End Date Uday Sheehan MD [address] [place] [address] Dr Thompson [place] PCP - General Unix Consultant 12/19/16 documented as of this encounter
--- OUTSIDE RECORDS SUMMARY | 2024-11-19 18:07 | XMS_ITS | Encounter Summary ---
Author Organization [facility] Address [address] [place] [address] Care Team Providers Care Director Energy Name Role Phone Uday Sheehan Primary Care Provider [phone] Encounter Details Date Type Department Care Team (Late st Contact Info) Description 04/15/2024 Lab Requisition [facility] [address] [place] [address] Salo Whyte MD [address] [place] [address] Acute respiratory failure, unspecified whether with hypoxia [...] - 10.8 10*3/uL 04/15/2024 12:45 PM EDT [facility] RBC 2.94(L) 4.70 - 6.10 10*6/uL 04/15/2024 12:45 PM EDT [facility] Hemoglobin 8.1(L) 13.7 - 16.5 g/dL 04/15/2024 12:45 PM EDT [facility] Hematocrit 26.2(L) 40.5 - 48.5 % 04/15/2024 12:45 PM EDT [facility] MCV 89.1 80.0 - 94.0 fL 04/15/2024 12:45 PM EDT [facility] MCH 27.6 26.0 - 34.0 pg 04/15/2024 12:45 PM EDT [facility] MCHC 30.9(L) 31.0 - 36.0 g/dL 04/15/2024 12:45 PM EDT [facility] RDW 17.3(H) 12.0 - 15.0 % 04/15/2024 12:45 PM EDT [facility] RDW Standard Deviation 55.5(H) 35.1 - 43.9 fL 04/15/2024 12:45 PM EDT [facility] Platelets 216 140 - 440 10*3/uL 04/15/2024 12:45 PM EDT [facility] MPV 10.4 9.4 - 12.4 fL 04/15/2024 12:45 PM EDT [facility] Neutrophil % 60.4 50.0 - 75.0 % 04/15/2024 12:45 PM EDT [facility] Immature Grans % 0.3 0.0 - 0.9 % 04/15/2024 12:45 PM EDT [facility] Lymphocyte % 21.7 20.0 - 44.0 % 04/15/2024 12:45 PM EDT [facility] Monocyte % 12.0 0.0 - 14.0 % 04/15/2024 12:45 PM EDT [facility] Eosinophil % 5.1(H) 0.0 - 5.0 % 04/15/2024 12:45 PM EDT [facility] Basophil % 0.5 0.0 - 2.0 % 04/15/2024 12:45 PM EDT [facility] Neutrophil # 3.88 1.80 - 7.70 10*3/uL 04/15/2024 12:45 PM EDT [facility] Immature Grans # <0.03 0.00 - 0.03 10*3/uL 04/15/2024 12:45 PM EDT [facility] Lymphocyte # 1.40 1.00 - 4.75 10*3/uL 04/15/2024 12:45 PM EDT [facility] Monocyte # 0.80 0.00 - 6.00 10*3/uL 04/15/2024 12:45 PM EDT [facility] Eosinophil # 0.30 0.00 - 0.80 10*3/uL 04/15/2024 12:45 PM EDT [facility] Basophil # <0.03 0.00 - 0.20 10*3/uL 04/15/2024 12:45 PM EDT [facility] nRBC % 0.0 0 - 0 /100 WBCs 04/15/2024 12:45 PM EDT [facility] nRBC # <0.01 0.00 - 0.13 10*3/uL 04/15/2024 12:45 PM EDT [facility] Blood Structure of peripheral vein / Unknown Venipuncture / Unknown 04/15/2024 12:05 PM EDT 04/15/2024 12:05 PM EDT Salo Whyte MD LAB BLOOD ORDERABLES Final Result Performing Organization Address [facility] Co de Phone Number [facility] [address] [address], [place] [phone] * N-terminal ProBrain Natriuretic Peptide - [facility] & [facility]/[place] Only (04/15/2024 12:05 PM EDT) Pro-B-Type Natriuretic Peptide 457 <=1,800 pg/mL 04/15/2024 12:51 PM EDT [facility] Comment: RULE IN CHF >/= [...] Performing Organization Address [facility] Co de Phone Number [facility] [address] [address], [place] [phone] * (ABNORMAL) Comprehensive Metabolic Panel (04/15/2024 12:05 PM EDT) NA 140 136 - 145 mmol/L 04/15/2024 12:59 PM EDT [facility] K 4.1 3.5 - 5.1 mmol/L 04/15/2024 12:59 PM EDT [facility] Cl 97(L) 98 - 109 mmol/L 04/15/2024 12:59 PM EDT [facility] CO2 33(H) 22 - 32 mmol/L 04/15/2024 12:59 PM EDT [facility] Anion Gap 14 >=0 04/15/2024 12:59 PM EDT [facility] Glucose 94 60 - 99 mg/dL 04/15/2024 12:59 PM EDT [facility] Creatinine 1.13(H) 0.50 - 1.12 mg/dL 04/15/2024 12:59 PM EDT [facility] Calcium 9.5 8.4 - 10.4 mg/dL 04/15/2024 12:59 PM EDT [facility] Total Protein 6.6 6.6 - 8.7 g/dL 04/15/2024 12:59 PM EDT [facility] Albumin 3.1(L) 3.5 - 5.0 g/dL 04/15/2024 12:59 PM EDT [facility] Bilirubin, Total 0.3 0.2 - 1.2 mg/dL 04/15/2024 12:59 PM EDT [facility] Alkaline Phosphatase 105 40 - 129 U/L 04/15/2024 12:59 PM EDT [facility] AST 29 0 - 40 U/L 04/15/2024 12:59 PM T [facility] ALT 25 <=41 U/L 04/15/2024 12:59 PM T [facility] BUN 41(H) 8 - 23 mg/dL 04/15/2024 12:59 PM T [facility] eGFR 64 >=60 mL/min/1. 73m2 04/15/2024 12:59 PM T [facility] Comment:The estimated glomer ular filtration [...] - 4.2 g/dL 04/15/2024 12:59 PM EDT [facility] A/G Ratio 0.9(L) 1.5 - 3.0 04/15/2024 12:59 PM EDT [facility] Blood Structure of peripheral vein / Unknown Venipuncture / Unknown 04/15/2024 12:05 PM EDT 04/15/2024 12:05 PM EDT us Salo Whyte MD LAB BLOOD ORDERABLES Final Result [facility] [address] [facility] [address] [place] [address], documented in this encounter Visit Diagnoses Diagnosis Acute respiratory failure, unspecified whether with hypoxia or hypercapnia (HCC) No diagnosis documented in this encounter Additional Health Concerns Infection Onset Date Last Indicated Resolved Time 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
--- OUTSIDE RECORDS SUMMARY | 2024-11-19 18:07 | XMS_ITS | Encounter Summary ---
Author Organization [facility] Address [address] [place] [address] Care Team Providers Care Asphalt Raker Name Role Phone Uday Sheehan MD Primary Care Provider [phone] Encounter Details Date Type Department Care Team (Late st Contact Info) Description 09/15/2024 Lab Requisition [facility] - Main Lab [address] [facility] [place] [address] Tabby Bledsoe MD [address] [address] Bacteremia Social History Tobacco Use Types Packs/Day [...] documented as of this encounter Care Teams Asphalt Raker Relationship Specialty Start Date End Date Uday Sheehan MD [address] [place] [address] PCP - General Traffic Chief 12/19/16 documented as of this encounter
--- OUTSIDE RECORDS SUMMARY | 2024-11-19 18:07 | XMS_ITS | Encounter Summary ---
Author Organization [facility] Address [address] [place] [address] Care Team Providers Care Hrbp Name Role Phone Uday Sheehan MD Primary Care Provider [phone] Encounter Details Date Type Department Care Team (Late st Contact Info) Description 09/08/2024 Lab Requisition [facility] - Main Lab [address] [facility] [place] [address] Tabby Bledsoe MD [address] [facility] [address] [place], [place] [id number] Bacteremia; Osteomyelitis, unspecified (CMS/HCC V24, CMS/HCC V28) [...] * Vancomycin, trough (09/09/2024 9:00 AM EST) [facility] Vancomycin Trough 18.4 10.0 - 20.0 mcg/mL LAB CHEMISTRY METHOD 09/09/2024 1:34 PM [facility] Blood Venous blood specimen / Unknown Venipuncture / Unknown 09/09/2024 9:00 AM EST 09/09/2024 11:09 AM EST us Tabby Bledsoe MD LAB BLOOD ORDERABLES Fin al Result [facility] [address] [place] [address], [place] [phone] * (ABNORMAL) Comprehensive metabolic panel (09/09/2024 9:00 AM EST) [facility] Sodium 142 133 - 145 mmol/L LAB CHEMISTRY METHOD 09/09/2024 1:34 PM [facility] Potassium 3.9 3.5 - 5.5 mmol/L LAB CHEMISTRY METHOD 09/09/2024 1:34 PM [facility] Chloride 105 96 - 110 mmol/L LAB CHEMISTRY METHOD 09/09/2024 1:34 PM [facility] CO2 28 21 - 32 mmol/L LAB CHEMISTRY METHOD 09/09/2024 1:34 PM [facility] Anion Gap 9 3 - 11 LAB CHEMISTRY METHOD 09/09/2024 1:34 PM [facility] Glucose 87 70 - 100 mg/dL LAB CHEMISTRY METHOD 09/09/2024 1:34 PM [facility] BUN 17 5 - 25 mg/dL LAB CHEMISTRY METHOD 09/09/2024 1:34 PM [facility] Creatinine 1.04 0.70 - 1.30 mg/dL LAB CHEMISTRY METHOD 09/09/2024 1:34 PM [facility] eGFR 71 >=60 mL/min/1. 73m2 LAB CHEMISTRY METHOD 09/09/2024 1:34 PM EST [facility] Comment:Calculation based on the??Chronic Kidney Disease Epidemiology Collaboration (CKD-EPI) equation refit??without adjustment for race. BUN/Creatinine Ratio 16.3 LAB CHEMISTRY METHOD 09/09/2024 1:34 PM [facility] Calcium 8.4(L) 8.5 - 10.5 mg/dL LAB CHEMISTRY METHOD 09/09/2024 1:34 PM [facility] AST (SGOT) 20 10 - 42 unit/L LAB CHEMISTRY METHOD 09/09/2024 1:34 PM [facility] ALT (SGPT) 17 10 - 60 unit/L LAB CHEMISTRY METHOD 09/09/2024 1:34 PM [facility] Alkaline Phosphatase 96 42 - 121 unit/L LAB CHEMISTRY METHOD 09/09/2024 1:34 PM [facility] Total Protein 5.8(L) 6.0 - 8.0 g/dL LAB CHEMISTRY METHOD 09/09/2024 1:34 PM [facility] Albumin 1.5(L) 3.2 - 5.0 g/dL LAB CHEMISTRY METHOD 09/09/2024 1:34 PM [facility] Total Bilirubin 0.3 0.0 - 1.4 mg/dL LAB CHEMISTRY METHOD 09/09/2024 1:34 PM [facility] Blood Venous blood specimen / Unknown Venipuncture / Unknown 09/09/2024 9:00 AM EST 09/09/2024 11:09 AM EST us Tabby Bledsoe MD LAB BLOOD ORDERABLES Fin al Result [facility] [address] [place] [address], * (ABNORMAL) Complete blood count (09/09/2024 9:00 AM EST) WBC 6.9 4.8 - 10.8 K/mcL LAB HEMETOLOGY METHOD 09/09/2024 1:45 PM [facility] RBC 3.30(L) 4.50 - 5.50 M/mcL LAB HEMETOLOGY METHOD 09/09/2024 1:45 PM [facility] Hemoglobin 9.1(L) 13.5 - 17.5 g/dL LAB HEMETOLOGY METHOD 09/09/2024 1:45 PM [facility] Hematocrit 30.6(L) 42.0 - 54.0 % LAB HEMETOLOGY METHOD 09/09/2024 1:45 PM [facility] MCV 93.3 79.0 - 98.0 FL LAB HEMETOLOGY METHOD 09/09/2024 1:45 PM [facility] MCH 27.7 27.0 - 32.0 pcg LAB HEMETOLOGY METHOD 09/09/2024 1:45 PM [facility] MCHC 29.7(L) 32.0 - 37.0 g/dL LAB HEMETOLOGY METHOD 09/09/2024 1:45 PM [facility] RDW 15.8(H) 11.0 - 15.0 % LAB HEMETOLOGY METHOD 09/09/2024 1:45 PM [facility] Platelets 259 130 - 400 K/mcL LAB HEMETOLOGY METHOD 09/09/2024 1:45 PM [facility] MPV 9.4 7.0 - 11.0 FL LAB HEMETOLOGY METHOD 09/09/2024 1:45 PM [facility] NRBC 0.0 <1.0 % LAB HEMETOLOGY METHOD 09/09/2024 1:45 PM [facility] NRBC Absolute 0.00 <0.10 K/mcL LAB HEMETOLOGY METHOD 09/09/2024 1:45 PM [facility] Blood Venous blood specimen / Unknown Venipuncture / Unknown 09/09/2024 9:00 AM EST 09/09/2024 11:09 AM EST us Tabby Bledsoe MD LAB BLOOD ORDERABLES Fin al Result [facility] [address] [place] [address], documented in this encounter Visit Diagnoses Diagnosis Bacteremia Osteomyelitis, unspecified (CMS/[facility] V24, CMS/[facility] V28) documented in this encounter Additional Health Concerns Infection Onset Date Last Indicated Resolved Time ESBL 06/22/2024 06/22/2024 documented as of this encounter Care Teams Hrbp Relationship Specialty Start Date End Date Uday Sheehan MD [address] [place] [address] Dr Donna [place] PCP - General Classroom Teacher 12/19/16 documented as of this encounter
--- OUTSIDE RECORDS SUMMARY | 2024-11-19 18:07 | XMS_ITS | Encounter Summary ---
Author Organization [facility] Address [address] [place] [address] Care Team Providers Care Railroad Watchman Name Role Phone Uday Sheehan MD Primary Care Provider [phone] Encounter Details Date Type Department Care Team (Late st Contact Info) Description 06/07/2024 Lab Requisition [facility] - Main Lab [address] [facility] [place] [address] Zak Zuluaga MD [address] [place], [place] [id number] Unspecified atrial fibrillation (CMS/HCC V24, CMS/HCC V28); [...] mmol/L LAB CHEMISTRY METHOD 06/10/2024 9:35 AM [facility] Potassium 4.2 3.5 - 5.5 mmol/L LAB CHEMISTRY METHOD 06/10/2024 9:35 AM [facility] Chloride 112(H) 96 - 110 mmol/L LAB CHEMISTRY METHOD 06/10/2024 9:35 AM [facility] CO2 25 21 - 32 mmol/L LAB CHEMISTRY METHOD 06/10/2024 9:35 AM [facility] Anion Gap 7 3 - 11 LAB CHEMISTRY METHOD 06/10/2024 9:35 AM [facility] Glucose 84 70 - 100 mg/dL LAB CHEMISTRY METHOD 06/10/2024 9:35 AM [facility] BUN 41(H) 5 - 25 mg/dL LAB CHEMISTRY METHOD 06/10/2024 9:35 AM [facility] Creatinine 2.66(H) 0.70 - 1.30 mg/dL LAB CHEMISTRY METHOD 06/10/2024 9:35 AM [facility] eGFR 23(L) >=60 mL/min/1. 73m2 LAB CHEMISTRY METHOD 06/10/2024 9:35 AM [facility] Comment:Calculation based on the??Chronic Kidney Disease Epidemiology Collaboration (CKD-EPI) equation refit??without adjustment for race. BUN/Creatinine Ratio 15.4 LAB CHEMISTRY METHOD 06/10/2024 9:35 AM [facility] Calcium 7.8(L) 8.5 - 10.5 mg/dL LAB CHEMISTRY METHOD 06/10/2024 9:35 AM [facility] AST (SGOT) 262(H) 10 - 42 unit/L LAB CHEMISTRY METHOD 06/10/2024 9:35 AM [facility] ALT (SGPT) 146(H) 10 - 60 unit/L LAB CHEMISTRY METHOD 06/10/2024 9:35 AM [facility] Alkaline Phosphatase 94 42 - 121 unit/L LAB CHEMISTRY METHOD 06/10/2024 9:35 AM [facility] Total Protein 5.1(L) 6.0 - 8.0 g/dL LAB CHEMISTRY METHOD 06/10/2024 9:35 AM [facility] Albumin 1.6(L) 3.2 - 5.0 g/dL LAB CHEMISTRY METHOD 06/10/2024 9:35 AM [facility] Total Bilirubin 0.4 0.0 - 1.4 mg/dL LAB CHEMISTRY METHOD 06/10/2024 9:35 AM [facility] Blood Venous blood specimen / Unknown Venipuncture / Unknown 06/10/2024 6:43 AM EST 06/10/2024 8:01 AM EST us Zak Zuluaga MD LAB BLOOD ORDERABLES Final Resul t [facility] [address] [place] [address], [place] [phone] * (ABNORMAL) Complete blood count (06/10/2024 6:43 AM EST) WBC 4.7(L) 4.8 - 10.8 K/mcL LAB HEMETOLOGY METHOD 06/10/2024 8:36 AM [facility] RBC 2.40(L) 4.50 - 5.50 M/mcL LAB HEMETOLOGY METHOD 06/10/2024 8:36 AM [facility] Hemoglobin 6.3(LL) 13.5 - 17.5 g/dL LAB HEMETOLOGY METHOD 06/10/2024 8:36 AM [facility] Hematocrit 21.0(L) 42.0 - 54.0 % LAB HEMETOLOGY METHOD 06/10/2024 8:36 AM [facility] MCV 88.0 79.0 - 98.0 FL LAB HEMETOLOGY METHOD 06/10/2024 8:36 AM EST [facility] MCH 26.0(L) 27.0 - 32.0 pcg LAB HEMETOLOGY METHOD 06/10/2024 8:36 AM EST [facility] MCHC 29.6(L) 32.0 - 37.0 g/dL LAB HEMETOLOGY METHOD 06/10/2024 8:36 AM EST [facility] RDW 17.1(H) 11.0 - 15.0 % LAB HEMETOLOGY METHOD 06/10/2024 8:36 AM EST [facility] Platelets 169 130 - 400 K/mcL LAB HEMETOLOGY METHOD 06/10/2024 8:36 AM [facility] MPV 10.3 7.0 - 11.0 FL LAB HEMETOLOGY METHOD 06/10/2024 8:36 AM EST [facility] NRBC 0.0 <1.0 % LAB HEMETOLOGY METHOD 06/10/2024 8:36 AM [facility] NRBC Absolute 0.00 <0.10 K/mcL LAB HEMETOLOGY METHOD 06/10/2024 8:36 AM [facility] Blood Venous blood specimen / Unknown Venipuncture / Unknown 06/10/2024 6:43 AM EST 06/10/2024 8:01 AM EST us Zak Zuluaga MD LAB BLOOD ORDERABLES Final Resul t [facility] [address] [place] [address], documented in this encounter Visit Diagnoses Diagnosis Unspecified atrial fibrillation (CMS/HCC V24, CMS/HCC V28) Essential (primary) hypertension Unspecified essential hypertension documented in this encounter Additional Health Concerns Infection Onset Date Last Indicated Resolved Time ESBL 06/22/2024 06/22/2024 documented as of this encounter Care Teams Railroad Watchman Relationship Specialty Start Date End Date Uday Sheehan MD [address] [address] Donna [place] PCP - General Transportation Dispatcher 12/19/16 documented as of this encounter
--- OUTSIDE RECORDS SUMMARY | 2024-11-19 18:07 | XMS_ITS | Encounter Summary ---
Author Organization [facility] Address [address] [place] [address] Care Team Providers Care Clinical Rehabilitation Aide Name Role Phone Uday Sheehan MD Primary Care Provider [phone] Encounter Details Date Type Department Care Team (Late st Contact Info) Description 06/05/2024 Lab Requisition [facility] - Main Lab [address] [place] [address] Natanael Rodney MD [address] [place] [address] [place] [address] Chronic kidney disease, [...] AM EST) WBC 7.2 4.8 - 10.8 K/[facility] LAB HEMETOLOGY METHOD 06/05/2024 11:10 AM EST [facility] RBC 2.70(L) 4.50 - 5.50 M/mcL LAB HEMETOLOGY METHOD 06/05/2024 11:10 AM [facility] Hemoglobin 7.3(L) 13.5 - 17.5 g/dL LAB HEMETOLOGY METHOD 06/05/2024 11:10 AM [facility] Hematocrit 23.8(L) 42.0 - 54.0 % LAB HEMETOLOGY METHOD 06/05/2024 11:10 AM [facility] MCV 87.8 79.0 - 98.0 FL LAB HEMETOLOGY METHOD 06/05/2024 11:10 AM [facility] MCH 26.9(L) 27.0 - 32.0 pcg LAB HEMETOLOGY METHOD 06/05/2024 11:10 AM [facility] MCHC 30.7(L) 32.0 - 37.0 g/dL LAB HEMETOLOGY METHOD 06/05/2024 11:10 AM [facility] RDW 16.7(H) 11.0 - 15.0 % LAB HEMETOLOGY METHOD 06/05/2024 11:10 AM [facility] Platelets 172 130 - 400 K/mcL LAB HEMETOLOGY METHOD 06/05/2024 11:10 AM [facility] MPV 10.1 7.0 - 11.0 FL LAB HEMETOLOGY METHOD 06/05/2024 11:10 AM [facility] NRBC 0.0 <1.0 % LAB HEMETOLOGY METHOD 06/05/2024 11:10 AM [facility] NRBC Absolute 0.00 <0.10 K/mcL LAB HEMETOLOGY METHOD 06/05/2024 11:10 AM [facility] Blood Venous blood specimen / Unknown Venipuncture / Unknown 06/05/2024 8:53 AM EST 06/05/2024 10:47 AM EST us Natanael Rodney MD LAB BLOOD ORDERABLES Final Resu lt [facility] [address] [place] [address], documented in this encounter Visit Diagnoses Diagnosis Chronic kidney disease, unspecified Essential (primary) hypertension Unspecified essential hypertension Unspecified atrial fibrillation (CMS/HCC V24, CMS/HCC V28) documented in this encounter Additional Health Concerns Infection Onset Date Last Indicated Resolved Time ESBL 06/22/2024 06/22/2024 documented as of this encounter Care Teams Clinical Rehabilitation Aide Relationship Specialty Start Date End Date Uday Sheehan MD [address] [place] [address] Dr Donna [place] PCP - General Radiographer Cardiac Catheterization 12/19/16 documented as of this encounter
--- OUTSIDE RECORDS SUMMARY | 2024-11-19 18:07 | XMS_ITS | Encounter Summary ---
Author Organization [facility] Address [address] [place] [address] Care Team Providers Care Systems Consultant Name Role Phone Uday Sheehan Primary Care Provider [phone] Encounter Details Date Type Department Care Team (Late st Contact Info) Description 03/20/2024 Lab Requisition [facility] Lab [address] [place] [address] Lidia Barry NP [address] [place] [address] Acute and chronic respiratory failure with hypoxia; [...] this encounter Procedures * Due to [place] Familiar law, this organization might not be sharing negative HIV tests. Procedure Name Priority Date/Time Associated Diagnosis Comments VANCOMYCIN, TROUGH Routine 03/20/2024 7: 13 AM EDT Acute and chronic respiratory failure with hypoxia (HCC) No diagnosis documented in this encounter Results * Due to [place] Familiar law, this organization might not be sharing negative HIV tests. 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
--- OUTSIDE RECORDS SUMMARY | 2024-11-19 18:07 | XMS_ITS | Encounter Summary ---
Author Organization [facility] Address [address] [place] [address] Care Team Providers Care Couples Therapist Name Role Phone Uday Sheehan MD Primary Care Provider Encounter Details Date Type Department Care Team (Late st Contact Info) Description 07/15/2024 Lab Requisition [facility] - Main Lab [address] [facility] [place] [address] Tabby Bledsoe MD 819 [facility] 1 [place], [place] [id number] Essential (primary) hypertension; Hypothyroidism, unspecified; Unspecified atrial [...] mmol/L LAB CHEMISTRY METHOD 07/16/2024 10:45 AM [facility] Potassium 3.6 3.5 - 5.5 mmol/L LAB CHEMISTRY METHOD 07/16/2024 10:45 AM [facility] Chloride 110 96 - 110 mmol/L LAB CHEMISTRY METHOD 07/16/2024 10:45 AM [facility] CO2 31 21 - 32 mmol/L LAB CHEMISTRY METHOD 07/16/2024 10:45 AM [facility] Anion Gap 4 3 - 11 LAB CHEMISTRY METHOD 07/16/2024 10:45 AM [facility] Glucose 107(H) 70 - 100 mg/dL LAB CHEMISTRY METHOD 07/16/2024 10:45 AM [facility] BUN 29(H) 5 - 25 mg/dL LAB CHEMISTRY METHOD 07/16/2024 10:45 AM [facility] Creatinine 1.79(H) 0.70 - 1.30 mg/dL LAB CHEMISTRY METHOD 07/16/2024 10:45 AM [facility] eGFR 37(L) >=60 mL/min/1. 73m2 LAB CHEMISTRY METHOD 07/16/2024 10:45 AM [facility] Comment:Calculation based on the??Chronic Kidney Disease Epidemiology Collaboration (CKD-EPI) equation refit??without adjustment for race. BUN/Creatinine Ratio 16.2 LAB CHEMISTRY METHOD 07/16/2024 10:45 AM [facility] Calcium 9.9 8.5 - 10.5 mg/dL LAB CHEMISTRY METHOD 07/16/2024 10:45 AM [facility] AST (SGOT) 20 10 - 42 unit/L LAB CHEMISTRY METHOD 07/16/2024 10:45 AM [facility] ALT (SGPT) 12 10 - 60 unit/L LAB CHEMISTRY METHOD 07/16/2024 10:45 AM [facility] Alkaline Phosphatase 106 42 - 121 unit/L LAB CHEMISTRY METHOD 07/16/2024 10:45 AM EST [facility] Total Protein 6.0 6.0 - 8.0 g/dL LAB CHEMISTRY METHOD 07/16/2024 10:45 AM [facility] Albumin 1.6(L) 3.2 - 5.0 g/dL LAB CHEMISTRY METHOD 07/16/2024 10:45 AM [facility] Total Bilirubin 0.4 0.0 - 1.4 mg/dL LAB CHEMISTRY METHOD 07/16/2024 10:45 AM [facility] Blood Venous blood specimen / Unknown Venipuncture / Unknown 07/16/2024 5:50 AM EST 07/16/2024 9:42 AM EST us Tabby Bledsoe MD LAB BLOOD ORDERABLES Fin al Result [facility] [address] [place] [address], [place] [phone] * (ABNORMAL) Complete blood count (07/16/2024 5:50 AM EST) WBC 6.0 4.8 - 10.8 K/mcL LAB HEMETOLOGY METHOD 07/16/2024 9:59 AM [facility] RBC 2.90(L) 4.50 - 5.50 M/mcL LAB HEMETOLOGY METHOD 07/16/2024 9:59 AM [facility] Hemoglobin 7.5(L) 13.5 - 17.5 g/dL LAB HEMETOLOGY METHOD 07/16/2024 9:59 AM [facility] Hematocrit 25.1(L) 42.0 - 54.0 % LAB HEMETOLOGY METHOD 07/16/2024 9:59 AM [facility] MCV 86.9 79.0 - 98.0 [...] K/mcL LAB HEMETOLOGY METHOD 07/16/2024 9:59 AM [facility] MPV 9.7 7.0 - 11.0 FL LAB HEMETOLOGY METHOD 07/16/2024 9:59 AM EST [facility] NRBC 0.0 <1.0 % LAB HEMETOLOGY METHOD 07/16/2024 9:59 AM [facility] NRBC Absolute 0.00 <0.10 K/mcL LAB HEMETOLOGY METHOD 07/16/2024 9:59 AM [facility] Blood Venous blood specimen / Unknown Venipuncture / Unknown 07/16/2024 5:50 AM EST 07/16/2024 9:42 AM EST us Tabby Bledsoe MD LAB BLOOD ORDERABLES Fin al Result [facility] [address] [place] [address], documented in this encounter Visit Diagnoses Diagnosis Essential (primary) hypertension Unspecified essential hypertension Hypothyroidism, unspecified Unspecified atrial fibrillation (CMS/HCC V24, CMS/HCC V28) documented in this encounter Additional Health Concerns Infection Onset Date Last Indicated Resolved Time ESBL 06/22/2024 06/22/2024 documented as of this encounter Care Teams Couples Therapist Relationship Specialty Start Date End Date Uday Sheehan MD [address] [facility] [address] Donna [place] PCP - General Aeronautics Teacher 12/19/16 documented as of this encounter
--- OUTSIDE RECORDS SUMMARY | 2024-11-19 18:07 | XMS_ITS | Encounter Summary ---
Author Organization [facility] Address [address] [place] [address] Care Team Providers Care International Trade Teacher Name Role Phone Uday Sheehan Primary Care Provider [phone] Encounter Details Date Type Department Care Team (Late st Contact Info) Description 03/23/2024 Lab Requisition [facility] [address] [place] [address] Valarie Pierson MD [address] [place] [address] Acute and chronic respiratory failure with hypoxia; [...] this encounter Procedures * Due to [place] OTOY law, this organization might not be sharing negative HIV tests. Procedure Name Priority Date/Time Associated Diagnosis Comments VANCOMYCIN, TROUGH Routine 03/23/2024 5: 30 AM EDT Acute and chronic respiratory failure with hypoxia (HCC) No diagnosis documented in this encounter Results * Due to [place]TO[place] law, this organization might not be sharing negative HIV tests. * Vancomycin, Trough (03/23/2024 5:30 AM EDT) Vancomycin Trough 15.6 10.0 - 20.0 ug/mL 03/23/2024 11:45 AM EDT [facility] Blood Structure of peripheral vein / Unknown Venipuncture / Unknown 03/23/2024 5:30 AM EDT 03/23/2024 9:17 AM EDT us Valarie Pierson MD LAB BLOOD ORDERABLES Final Res ult [facility] [address] [place] [address], documented in this encounter Visit Diagnoses Diagnosis [...] documented as of this encounter Care Teams International Trade Teacher Relationship Specialty Start Date End Date Uday Sheehan [address] [place] [address] [place] [address] PCP - General Internal Medicine 03/27/24 documented as of this encounter
--- OUTSIDE RECORDS SUMMARY | 2024-11-19 18:07 | XMS_ITS | Encounter Summary ---
Author Organization [facility] Address [address] [place] [address] Care Team Providers Care Inter Com Installer Name Role Phone Uday Sheehan Primary Care Provider Encounter Details Date Type Department Care Team (Late st Contact Info) Description 04/22/2024 Lab Requisition [facility] Lab [address] [place] [address] Salo Whyte MD [address] [place] [address] Acute and chronic respiratory failure with hypoxia; [...] - 4.200 uIU/mL 04/22/2024 10:11 AM EDT [facility] Blood Structure of peripheral vein / Unknown 04/22/2024 9:32 AM EDT 04/22/2024 9:33 AM EDT us Salo Whyte MD LAB BLOOD ORDERABLES Final Result Performing Organization Address City/State/[facility] Co de Phone Number [facility] [address] [place] [address] [address] [place] [address], [place] [phone] * T4, Free (04/22/2024 9:32 AM EDT) Free T4 1.25 0.80 - 1.80 ng/dL 04/22/2024 10:11 AM EDT [facility] Comment: Females: (ng/dL) First Trimester [...] Whyte MD LAB BLOOD ORDERABLES Final Result [facility] [address] [place] [address] [address] [place] [address], [place] [phone] * (ABNORMAL) CBC Auto Differential (04/22/2024 9:32 AM EDT) WBC 5.8 4.8 - 10.8 10*3/uL 04/22/2024 9:53 AM EDT [facility] RBC 2.96(L) 4.70 - 6.10 10*6/uL 04/22/2024 9:53 AM EDT [facility] Hemoglobin 8.2(L) 13.7 - 16.5 g/dL 04/22/2024 9:53 AM EDT [facility] Hematocrit 25.7(L) 40.5 - 48.5 % 04/22/2024 9:53 AM EDT [facility] MCV 86.8 80.0 - 94.0 fL 04/22/2024 9:53 AM EDT [facility] MCH 27.7 26.0 - 34.0 pg 04/22/2024 9:53 AM EDT [facility] MCHC 31.9 31.0 - 36.0 g/dL 04/22/2024 9:53 AM EDT [facility] RDW 16.4(H) 12.0 - 15.0 % 04/22/2024 9:53 AM EDT [facility] RDW Standard Deviation 52.1(H) 35.1 - 43.9 fL 04/22/2024 9:53 AM EDT [facility] Platelets 182 140 - 440 10*3/uL 04/22/2024 9:53 AM EDT [facility] MPV 10.8 9.4 - 12.4 fL 04/22/2024 9:53 AM EDT [facility] Neutrophil % 57.5 50.0 - 75.0 % 04/22/2024 9:53 AM EDT [facility] Immature Grans % 0.2 0.0 - 0.9 % 04/22/2024 9:53 AM EDT [facility] Lymphocyte % 21.1 20.0 - 44.0 % 04/22/2024 9:53 AM EDT [facility] Monocyte % 15.7(H) 0.0 - 14.0 % 04/22/2024 9:53 AM EDT [facility] Eosinophil % 5.0 0.0 - 5.0 % 04/22/2024 9:53 AM EDT [facility] Basophil % 0.5 0.0 - 2.0 % 04/22/2024 9:53 AM EDT [facility] Neutrophil # 3.32 1.80 - 7.70 10*3/uL 04/22/2024 9:53 AM EDT [facility] Immature Grans # <0.03 0.00 - 0.03 10*3/uL 04/22/2024 9:53 AM EDT [facility] Lymphocyte # 1.20 1.00 - 4.75 10*3/uL 04/22/2024 9:53 AM EDT [facility] Monocyte # 0.90 0.00 - 6.00 10*3/uL 04/22/2024 9:53 AM EDT [facility] Eosinophil # 0.30 0.00 - 0.80 10*3/uL 04/22/2024 9:53 AM EDT [facility] Basophil # <0.03 0.00 - 0.20 10*3/uL 04/22/2024 9:53 AM EDT [facility] nRBC % 0.0 0 - 0 /100 WBCs 04/22/2024 9:53 AM EDT [facility] nRBC # <0.01 0.00 - 0.13 10*3/uL 04/22/2024 9:53 AM EDT [facility] Blood Structure of peripheral vein / Unknown 04/22/2024 9:32 AM EDT 04/22/2024 9:33 AM EDT Salo Whyte MD LAB BLOOD ORDERABLES Final Result Performing Organization Address [facility] Co de Phone Number [facility] [address] [address], [place] [phone] * N-terminal ProBrain Natriuretic Peptide - [facility] & MEM/ESTELA/Forrest Only (04/22/2024 9:32 AM EDT) Pro-B-Type Natriuretic Peptide 435 <=1,800 pg/mL 04/22/2024 10:42 AM EDT [facility] Comment: RULE IN CHF >/= [...] BLOOD ORDERABLES Final Result Performing Organization Address [facility]/ZIP Co de Phone Number [facility] [address] [address], [place] [phone] * (ABNORMAL) Comprehensive Metabolic Panel (04/22/2024 9:32 AM EDT) NA 139 136 - 145 mmol/L 04/22/2024 10:11 AM EDT [facility] K 3.9 3.5 - 5.1 mmol/L 04/22/2024 10:11 AM EDT [facility] Cl 96(L) 98 - 109 mmol/L 04/22/2024 10:11 AM EDT [facility] CO2 33(H) 22 - 32 mmol/L 04/22/2024 10:11 AM EDT [facility] Anion Gap 14 >=0 04/22/2024 10:11 AM [facility] Glucose 98 60 - 99 mg/dL 04/22/2024 10:11 AM EDT [facility] Creatinine 1.43(H) 0.50 - 1.12 mg/dL 04/22/2024 10:11 AM EDT [facility] Calcium 9.9 8.4 - 10.4 mg/dL 04/22/2024 10:11 AM [facility] Total Protein 6.3(L) 6.6 - 8.7 g/dL 04/22/2024 10:11 AM [facility] Albumin 3.0(L) 3.5 - 5.0 g/dL 04/22/2024 10:[facility] Bilirubin, Total 0.4 0.2 - 1.2 mg/dL 04/22/2024 10:11 AM T [facility] Alkaline Phosphatase 106 40 - 129 U/L 04/22/2024 10:11 [facility] AST 34 0 - 40 U/L 04/22/2024 10:11 AM [facility] ALT 30 <=41 U/L 04/22/2024 10:11 AM T [facility] BUN 50(H) 8 - 23 mg/dL 04/22/2024 10:11 AM [facility] eGFR 48(L) >=60 mL/min/1. 73m2 04/22/2024 10:11 AM T [facility] Comment:The estimated glomer ular filtration [...] - 4.2 g/dL 04/22/2024 10:11 AM EDT [facility] A/G Ratio 0.9(L) 1.5 - 3.0 04/22/2024 10:11 AM EDT [facility] Blood Structure of peripheral vein / Unknown 04/22/2024 9:32 AM EDT 04/22/2024 9:33 AM EDT Salo Whyte MD LAB BLOOD ORDERABLES Final Result Performing Organization Address City/State/[facility] Co de Phone Number [facility] [address] [place] [address] [address] [place] [address], documented in this encounter Visit Diagnoses Diagnosis Acute and chronic respiratory failure with hypoxia (HCC) No diagnosis documented in this encounter Additional Health Concerns Infection Onset Date Last Indicated Resolved Time 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
--- OUTSIDE RECORDS SUMMARY | 2024-11-19 18:07 | XMS_ITS | Encounter Summary ---
Author Organization [facility] Address [address] [place] [address] Care Team Providers Care Autocad Electrical Designer Name Role Phone Uday Sheehan MD Primary Care Provider [phone] Encounter Details Date Type Department Care Team (Late st Contact Info) Description 11/12/2024 Lab Requisition [facility] - Main Lab [address] [place] [address] Tabby Bledsoe MD [address] [address] Anemia, unspecified Social History Tobacco Use Types [...] AM EDT) WBC 6.6 4.8 - 10.8 K/[facility] LAB HEMETOLOGY METHOD 11/12/2024 10:31 AM EDT [facility] ([facility]) [facility] RBC 2.50(L) 4.50 - 5.50 /[facility] LAB HEMETOLOGY METHOD 11/12/2024 10:[facility] Hemoglobin 6.8(L) 13.5 - 17.5 g/dL LAB HEMETOLOGY METHOD 11/12/2024 10:31 AM [facility] Hematocrit 23.1(L) 42.0 - 54.0 % LAB HEMETOLOGY METHOD 11/12/2024 10:31 AM [facility] MCV 92.0 79.0 - 98.0 FL LAB HEMETOLOGY METHOD 11/12/2024 10:31 AM [facility] MCH 27.1 27.0 - 32.0 pcg LAB HEMETOLOGY METHOD 11/12/2024 10:31 AM [facility] MCHC 29.4(L) 32.0 - 37.0 g/dL LAB HEMETOLOGY METHOD 11/12/2024 10:31 AM [facility] RDW 17.6(H) 11.0 - 15.0 % LAB HEMETOLOGY METHOD 11/12/2024 10:31 AM [facility] Platelets 246 130 - 400 K/mcL LAB HEMETOLOGY METHOD 11/12/2024 10:31 AM [facility] MPV 9.8 7.0 - 11.0 FL LAB HEMETOLOGY METHOD 11/12/2024 10:31 AM [facility] NRBC 0.0 <1.0 % LAB HEMETOLOGY METHOD 11/12/2024 10:31 AM [facility] NRBC Absolute 0.00 <0.10 K/mcL LAB HEMETOLOGY METHOD 11/12/2024 10:31 AM [facility] Blood Venous blood specimen / Unknown Venipuncture / Unknown 11/12/2024 5:45 AM EDT 11/12/2024 9:47 AM EDT us Tabby Bledsoe MD LAB BLOOD ORDERABLES Fin al Result [facility] [address] [place] [address], documented in this encounter Visit Diagnoses Diagnosis Anemia, unspecified documented in this encounter Additional Health Concerns Infection Onset Date Last Indicated Resolved Time ESBL 06/22/2024 06/22/2024 documented as of this encounter Care Teams Autocad Electrical Designer Relationship Specialty Start Date End Date Uday Sheehan MD [address] [place] [address] Dr Butler [address] [place] [address] PCP - General Fur Cleaner 12/19/16 documented as of this encounter
--- OUTSIDE RECORDS SUMMARY | 2024-11-19 18:07 | XMS_ITS | Encounter Summary ---
Author Organization [facility] Address [address] [place] [address] Care Team Providers Care Planting Material Carrier Name Role Phone Uday Sheehan MD Primary Care Provider Encounter Details Date Type Department Care Team (Late st Contact Info) Description 07/27/2024 Lab Requisition [facility] - Main Lab [address] [place] [address] Tabby Bledsoe MD [address] [address] Bacteremia Social History Tobacco Use Types Packs/Day [...] LAB CHEMISTRY METHOD 07/29/2024 2:[address] [facility] Potassium 3.6 3.5 - 5.5 mmol/L LAB CHEMISTRY METHOD 07/29/2024 2:40 PM [facility] Chloride 105 96 - 110 mmol/L LAB CHEMISTRY METHOD 07/29/2024 2:40 PM [facility] CO2 29 21 - 32 mmol/L LAB CHEMISTRY METHOD 07/29/2024 2:40 PM [facility] Anion Gap 7 3 - 11 LAB CHEMISTRY METHOD 07/29/2024 2:40 PM [facility] Glucose 98 70 - 100 mg/dL LAB CHEMISTRY METHOD 07/29/2024 2:40 PM [facility] BUN 26(H) 5 - 25 mg/dL LAB CHEMISTRY METHOD 07/29/2024 2:40 PM [facility] Creatinine 2.26(H) 0.70 - 1.30 mg/dL LAB CHEMISTRY METHOD 07/29/2024 2:40 PM [facility] eGFR 28(L) >=60 mL/min/1. 73m2 LAB CHEMISTRY METHOD 07/29/2024 2:40 PM [facility] Comment:Calculation based on the??Chronic Kidney Disease Epidemiology Collaboration (CKD-EPI) equation refit??without adjustment for race. BUN/Creatinine Ratio 11.5 LAB CHEMISTRY METHOD 07/29/2024 2:40 PM [facility] Calcium 8.5 8.5 - 10.5 mg/dL LAB CHEMISTRY METHOD 07/29/2024 2:40 PM [facility] AST (SGOT) 15 10 - 42 unit/L LAB CHEMISTRY METHOD 07/29/2024 2:40 PM [facility] ALT (SGPT) 8(L) 10 - 60 unit/L LAB CHEMISTRY METHOD 07/29/2024 2:40 PM [facility] Alkaline Phosphatase 93 42 - 121 unit/L LAB CHEMISTRY METHOD 07/29/2024 2:40 PM [facility] Total Protein 5.5(L) 6.0 - 8.0 g/dL LAB CHEMISTRY METHOD 07/29/2024 2:40 PM [facility] Albumin 1.5(L) 3.2 - 5.0 g/dL LAB CHEMISTRY METHOD 07/29/2024 2:40 PM [facility] Total Bilirubin 0.2 0.0 - 1.4 mg/dL LAB CHEMISTRY METHOD 07/29/2024 2:40 PM [facility] Blood Venous blood specimen / Unknown Venipuncture / Unknown 07/29/2024 10:02 AM EST 07/29/2024 12:19 PM EST us Tabby Bledsoe MD LAB BLOOD ORDERABLES Fin al Result [facility] [address] [place] [address], [place] [phone] * (ABNORMAL) Complete blood count (07/29/2024 10:02 AM EST) WBC 6.7 4.8 - 10.8 K/mcL LAB HEMETOLOGY METHOD 07/29/2024 2:00 PM [facility] RBC 2.80(L) 4.50 - 5.50 M/mcL LAB HEMETOLOGY METHOD 07/29/2024 2:00 PM [facility] Hemoglobin 7.3(L) 13.5 - 17.5 g/dL LAB HEMETOLOGY METHOD 07/29/2024 2:00 PM [facility] Hematocrit 25.3(L) 42.0 - 54.0 % LAB HEMETOLOGY METHOD 07/29/2024 2:00 PM [facility] MCV 90.0 79.0 - 98.0 FL LAB HEMETOLOGY METHOD 07/29/2024 2:00 PM [facility] MCH 26.0(L) 27.0 - 32.0 pcg LAB HEMETOLOGY METHOD 07/29/2024 2:00 PM [facility] MCHC 28.9(L) 32.0 - 37.0 g/dL LAB HEMETOLOGY METHOD 07/29/2024 2:00 PM [facility] RDW 19.8(H) 11.0 - 15.0 % LAB HEMETOLOGY METHOD 07/29/2024 2:00 PM [facility] Platelets 240 130 - 400 K/mcL LAB HEMETOLOGY METHOD 07/29/2024 2:00 PM [facility] MPV 9.5 7.0 - 11.0 FL LAB HEMETOLOGY METHOD 07/29/2024 2:00 PM [facility] NRBC 0.0 <1.0 % LAB HEMETOLOGY METHOD 07/29/2024 2:00 PM [facility] NRBC Absolute 0.00 <0.10 K/mcL LAB HEMETOLOGY METHOD 07/29/2024 2:00 PM [facility] Blood Venous blood specimen / Unknown Venipuncture / Unknown 07/29/2024 10:02 AM EST 07/29/2024 12:19 PM EST Tabby Bledsoe MD LAB BLOOD ORDERABLES Fin al Result [facility] [address] [place] [address], documented in this encounter Visit Diagnoses Diagnosis Bacteremia documented in this encounter Additional Health Concerns Infection Onset Date Last Indicated Resolved Time ESBL 06/22/2024 06/22/2024 documented as of this encounter Care Teams Planting Material Carrier Relationship Specialty Start Date End Date Uday Sheehan MD [address] [place] [address] Dr Donna [place] PCP - General Reception Specialist 12/19/16 documented as of this encounter
--- OUTSIDE RECORDS SUMMARY | 2024-11-19 18:07 | XMS_ITS | Encounter Summary ---
Author Organization [facility] Address [address] [place] [address] Care Team Providers Care Regulatory Compliance Director Name Role Phone Uday Sheehan MD Primary Care Provider [phone] Encounter Details Date Type Department Care Team (Late st Contact Info) Description 11/14/2024 Lab Requisition [facility] - Main Lab [address] [place] [address] Tabby Bledsoe MD [address] [address] Anemia, unspecified Social History Tobacco Use Types [...] AM EDT) WBC 6.4 4.8 - 10.8 K/[facility] LAB HEMETOLOGY METHOD 11/14/2024 9:19 AM EDT [facility] ([facility]) [facility] RBC 2.50(L) 4.50 - 5.50 /[facility] LAB HEMETOLOGY METHOD [facility]/14[facility]24 [facility] Hemoglobin 6.7(L) 13.5 - 17.5 g/dL LAB HEMETOLOGY METHOD 11/14/2024 9:19 AM [facility] Hematocrit 23.1(L) 42.0 - 54.0 % LAB HEMETOLOGY METHOD 11/14/2024 9:19 AM [facility] MCV 92.0 79.0 - 98.0 FL LAB HEMETOLOGY METHOD 11/14/2024 9:19 AM [facility] MCH 26.7(L) 27.0 - 32.0 pcg LAB HEMETOLOGY METHOD 11/14/2024 9:19 AM [facility] MCHC 29.0(L) 32.0 - 37.0 g/dL LAB HEMETOLOGY METHOD 11/14/2024 9:19 AM [facility] RDW 17.5(H) 11.0 - 15.0 % LAB HEMETOLOGY METHOD 11/14/2024 9:19 AM [facility] Platelets 239 130 - 400 K/mcL LAB HEMETOLOGY METHOD 11/14/2024 9:19 AM [facility] MPV 9.3 7.0 - 11.0 FL LAB HEMETOLOGY METHOD 11/14/2024 9:19 AM [facility] NRBC 0.0 <1.0 % LAB HEMETOLOGY METHOD 11/14/2024 9:19 AM [facility] NRBC Absolute 0.00 <0.10 K/mcL LAB HEMETOLOGY METHOD 11/14/2024 9:19 AM [facility] Blood Venous blood specimen / Unknown Venipuncture / Unknown 11/14/2024 6:10 AM EDT 11/14/2024 8:46 AM EDT Tabby Bledsoe MD LAB BLOOD ORDERABLES Fin al Result [facility] [address] [place] [address], documented in this encounter Visit Diagnoses Diagnosis Anemia, unspecified documented in this encounter Additional Health Concerns Infection Onset Date Last Indicated Resolved Time ESBL 06/22/2024 06/22/2024 documented as of this encounter Care Teams Regulatory Compliance Director Relationship Specialty Start Date End Date Uday Sheehan MD [address] [place] [address] Dr Butler [address] [place] [address] PCP - General Instructor Pilot 12/19/16 documented as of this encounter
--- OUTSIDE RECORDS SUMMARY | 2024-11-19 18:07 | XMS_ITS | Encounter Summary ---
Author Organization [facility] Address [address] [place] [address] Care Team Providers Care Biology Specialist Name Role Phone Uday Sheehan Primary Care Provider [phone] Encounter Details Date Type Department Care Team (Late st Contact Info) Description 03/29/2024 Orders Only [facility] [address] [place] [address] Vasquez Quintanilla MD [address] [place] [address] Social History Tobacco Use Types Packs/Day Years [...] documented as of this encounter Care Teams Biology Specialist Relationship Specialty Start Date End Date Uday Sheehan [address] [place] [address] [place] [address] PCP - General Internal Medicine 03/27/24 documented as of this encounter
--- OUTSIDE RECORDS SUMMARY | 2024-11-19 18:07 | XMS_ITS | Encounter Summary ---
Author Organization [facility] Address [address] [place] [address] Care Team Providers Care Timber Hand Name Role Phone Uday Sheehan MD Primary Care Provider Encounter Details Date Type Department Care Team (Late st Contact Info) Description 06/03/2024 Lab Requisition [facility] - Main Lab [address] [facility] [place] [address] Zak Zuluaga MD [address] [place] [address] Hypothyroidism, unspecified; Essential (primary) hypertension; Unspecified atrial [...] ORDERABLES Final Resul t Performing Organization Address City/[facility]/ZIP Co de Phone Number [facility] [address] [place] [address], [place] [phone] * Free thyroxine with reflex to free triiodothyronine (06/03/2024 8:12 AM EST) Free T4 1.24 0.70 - 1.80 ng/dL LAB CHEMISTRY METHOD 06/03/2024 12:42 PM EST [facility] Blood Venous blood specimen / Unknown Venipuncture / Unknown 06/03/2024 8:12 AM EST 06/03/2024 9:23 AM EST us Zak Zuluaga MD LAB BLOOD ORDERABLES Final Resul t Performing Organization Address City/[facility]/ZIP Co de Phone Number [facility] [address] [place] [address], [place] [phone] * (ABNORMAL) Thyroid stimulating hormone with reflex to free t4 and free t3 (06/03/2024 8:12 AM EST) TSH 5.71(H) 0.40 - 4.00 mcIU/mL LAB CHEMISTRY METHOD 06/03/2024 12:17 PM [facility] Blood Venous blood specimen / Unknown Venipuncture / Unknown 06/03/2024 8:12 AM EST 06/03/2024 9:23 AM EST us Zak Zuluaga MD LAB BLOOD ORDERABLES Final Resul t [facility] [address] [place] [address], * (ABNORMAL) Comprehensive metabolic panel (06/03/2024 8:12 AM EST) Pathologist [facility] Sodium 145 133 - 145 mmol/L LAB CHEMISTRY METHOD 06/03/2024 12:11 PM [facility] Potassium 3.9 3.5 - 5.5 mmol/L LAB CHEMISTRY METHOD 06/03/2024 12:11 PM [facility] Chloride 110 96 - 110 mmol/L LAB CHEMISTRY METHOD 06/03/2024 12:11 PM [facility] CO2 28 21 - 32 mmol/L LAB CHEMISTRY METHOD 06/03/2024 12:11 PM [facility] Anion Gap 7 3 - 11 LAB CHEMISTRY METHOD 06/03/2024 12:11 PM [facility] Glucose 83 70 - 100 mg/dL LAB CHEMISTRY METHOD 06/03/2024 12:11 PM [facility] BUN 40(H) 5 - 25 mg/dL LAB CHEMISTRY METHOD 06/03/2024 12:11 PM [facility] Creatinine 2.47(H) 0.70 - 1.30 mg/dL LAB CHEMISTRY METHOD 06/03/2024 12:11 PM [facility] eGFR 25(L) >=60 mL/min/1. 73m2 LAB CHEMISTRY METHOD 06/03/2024 12:11 PM [facility] Comment:Calculation based on the??Chronic Kidney Disease Epidemiology Collaboration (CKD-EPI) equation refit??without adjustment for race. BUN/Creatinine Ratio 16.2 LAB CHEMISTRY METHOD 06/03/2024 12:11 PM [facility] Calcium 8.1(L) 8.5 - 10.5 mg/dL LAB CHEMISTRY METHOD 06/03/2024 12:11 PM [facility] AST (SGOT) 19 10 - 42 unit/L LAB CHEMISTRY METHOD 06/03/2024 12:11 PM [facility] ALT (SGPT) 17 10 - 60 unit/L LAB CHEMISTRY METHOD 06/03/2024 12:11 PM [facility] Alkaline Phosphatase 81 42 - 121 unit/L LAB CHEMISTRY METHOD 06/03/2024 12:11 PM [facility] Total Protein 5.4(L) 6.0 - 8.0 g/dL LAB CHEMISTRY METHOD 06/03/2024 12:11 PM [facility] Albumin 1.9(L) 3.2 - 5.0 g/dL LAB CHEMISTRY METHOD 06/03/2024 12:11 PM [facility] Total Bilirubin 0.4 0.0 - 1.4 mg/dL LAB CHEMISTRY METHOD 06/03/2024 12:11 PM [facility] Blood Venous blood specimen / Unknown Venipuncture / Unknown 06/03/2024 8:12 AM EST 06/03/2024 9:23 AM EST us Zak Zuluaga MD LAB BLOOD ORDERABLES Final Resul t [facility] [address] [place] [address], [place] [phone] * (ABNORMAL) Complete blood count (06/03/2024 8:12 AM EST) [facility] WBC 6.6 4.8 - 10.8 K/mcL LAB HEMETOLOGY METHOD 06/03/2024 10:42 AM [facility] RBC 2.70(L) 4.50 - 5.50 M/mcL LAB HEMETOLOGY METHOD 06/03/2024 10:42 AM [facility] Hemoglobin 7.2(L) 13.5 - 17.5 g/dL LAB HEMETOLOGY METHOD 06/03/2024 10:42 AM [facility] Hematocrit 23.7(L) 42.0 - 54.0 % LAB HEMETOLOGY METHOD 06/03/2024 10:42 AM [facility] MCV 89.1 79.0 - 98.0 FL LAB HEMETOLOGY METHOD 06/03/2024 10:42 AM [facility] MCH 27.1 27.0 - 32.0 pcg LAB HEMETOLOGY METHOD 06/03/2024 10:42 AM [facility] MCHC 30.4(L) 32.0 - 37.0 g/dL LAB HEMETOLOGY METHOD 06/03/2024 10:42 AM [facility] RDW 16.7(H) 11.0 - 15.0 % LAB HEMETOLOGY METHOD 06/03/2024 10:42 AM [facility] Platelets 145 130 - 400 K/mcL LAB HEMETOLOGY METHOD 06/03/2024 10:42 AM [facility] MPV 10.4 7.0 - 11.0 FL LAB HEMETOLOGY METHOD 06/03/2024 10:42 AM [facility] NRBC 0.0 <1.0 % LAB HEMETOLOGY METHOD 06/03/2024 10:42 AM [facility] NRBC Absolute 0.00 <0.10 K/[facility] LAB HEMETOLOGY METHOD 06/03/2024 10:42 AM EST [facility] Blood Venous blood specimen / Unknown Venipuncture / Unknown 06/03/2024 8:12 AM EST 06/03/2024 9:23 AM EST us Zak Zuluaga MD LAB BLOOD ORDERABLES Final Resul t [facility] [address] [place] [address], documented in this encounter Visit Diagnoses Diagnosis Hypothyroidism, unspecified Essential (primary) hypertension Unspecified essential hypertension Unspecified atrial fibrillation (CMS/HCC V24, CMS/HCC V28) documented in this encounter Additional Health Concerns Infection Onset Date Last Indicated Resolved Time ESBL 06/22/2024 06/22/2024 documented as of this encounter Care Teams Timber Hand Relationship Specialty Start Date End Date Uday Sheehan MD [address] [place] [address] Dr Donna MA PCP - General Electrical Engineering Professor 12/19/16 documented as of this encounter
--- OUTSIDE RECORDS SUMMARY | 2024-11-19 18:07 | XMS_ITS | Encounter Summary ---
Author Organization [facility] Address [address] [place] [address] Care Team Providers Care Bearing Press Machine Operator Name Role Phone Uday Sehehan MD Primary Care Provider [phone] Encounter Details Date Type Department Care Team (Late st Contact Info) Description 06/12/2024 Lab Requisition [facility] - Main Lab [address] [place] [address] Pearl Garcia MD [address] [place] [address] Abnormal results of liver function [...] LAB CHEMISTRY METHOD 06/12/2024 12:15 PM EST [facility] Blood Venous blood specimen / Unknown Venipuncture / Unknown 06/12/2024 9:20 AM EST 06/12/2024 11:19 AM EST us Pearl Garcia MD LAB BLOOD ORDERABLES Final Resul t Performing Organization Address [facility] Co de Phone Number [facility] [address] [place] [address], [place] [phone] * (ABNORMAL) Triiodothyronine free (06/12/2024 9:20 AM EST) T3, Free 148(L) 230 - 420 pcg/dL LAB CHEMISTRY METHOD 06/12/2024 12:15 PM EST [facility] Blood Venous blood specimen / Unknown Venipuncture / Unknown 06/12/2024 9:20 AM EST 06/12/2024 11:19 AM EST us Pearl Garcia MD LAB BLOOD ORDERABLES Final Resul t [facility] [address] [place] [address], [place] [phone] * (ABNORMAL) Thyroid stimulating hormone (06/12/2024 9:20 AM EST) TSH 4.91(H) 0.40 - 4.00 mcIU/mL LAB CHEMISTRY METHOD 06/12/2024 12:15 PM EST [facility] Blood Venous blood specimen / Unknown Venipuncture / Unknown 06/12/2024 9:20 AM EST 06/12/2024 11:19 AM EST us Pearl Garcia MD LAB BLOOD ORDERABLES Final Resul t Performing Organization Address [facility] de Phone Number [facility] [address] [place] [address], [place] [phone] * (ABNORMAL) Alanine aminotransferase (06/12/2024 9:20 AM EST) ALT (SGPT) 127(H) 10 - 60 unit/L LAB CHEMISTRY METHOD 06/12/2024 12:03 PM EST [facility] Blood Venous blood specimen / Unknown Venipuncture / Unknown 06/12/2024 9:20 AM EST 06/12/2024 11:19 AM EST us Pearl Garcia MD LAB BLOOD ORDERABLES Final Resul t Performing Organization Address [facility] de Phone Number [facility] [address] [place] [address], [place] [phone] * (ABNORMAL) Aspartate aminotransferase (06/12/2024 9:20 AM EST) AST (SGOT) 185(H) 10 - 42 unit/L LAB CHEMISTRY METHOD 06/12/2024 12:04 PM EST [facility] Blood Venous blood specimen / Unknown Venipuncture / Unknown 06/12/2024 9:20 AM EST 06/12/2024 11:19 AM EST us Pearl Garcia MD LAB BLOOD ORDERABLES Final Resul t Performing Organization Address [facility] de Phone Number [facility] [address] [place] [address], [place] [phone] documented in this encounter Visit Diagnoses Diagnosis Abnormal results of liver function studies Nonspecific abnormal results of liver function study Hypothyroidism, unspecified documented in this encounter Additional Health Concerns Infection Onset Date Last Indicated Resolved Time ESBL 06/22/2024 06/22/2024 documented as of this encounter Care Teams Bearing Press Machine Operator Relationship Specialty Start Date End Date Uday Sheehan MD [address] [place] [address] Dr Donna MA PCP - General Head Of Integrated Media 12/19/16 documented as of this encounter
--- OUTSIDE RECORDS SUMMARY | 2024-11-19 18:07 | XMS_ITS | Encounter Summary ---
Author Organization [facility] Address [address] [place] [address] Care Team Providers Care Allied Health Teacher Name Role Phone Uday Sheehan Primary Care Provider [phone] Encounter Details Date Type Department Care Team (Late st Contact Info) Description 03/25/2024 Lab Requisition [facility] [address] [place] [address] Cecilio Bautista PA [address] [place] [address] Acute and chronic respiratory failure with hypoxia; [...] Cells (03/26/2024 9:24 AM EDT) Product Code [id number] [facility] Unit Number [id number] [facility] Unit ABO O [facility] Unit RH POS [facility] Crossmatch Compatible [facility] Dispense Status Presumed Transfuse [facility] Blood Expiration Date [facility] Blood Type Barcode 5100 [facility] Dispensed Volume 291 ML [facility] Product Code [id number] [facility] Unit Number [id number] [facility] Unit ABO O [facility] Unit RH POS [facility] Crossmatch Compatible [facility] Dispense Status Presumed Transfuse [facility] Blood Expiration Date [facility] Blood Type Barcode 5100 [facility] Dispensed Volume 377 ML [facility] 03/26/2024 9:24 AM EDT 03/25/2024 11:34 AM EDT us Cecilio [facility] BLOOD BANK PRODUCT ORDERABLE S Final Result [facility] [address] [place] [address], * (ABNORMAL) Respiratory Culture w/Gram Stain (03/25/2024 5:50 AM EDT) Respiratory Culture Few Methicillin resistant Staphylococcus aureus (MRSA)(A) MINIMUM INHIBITORY CONCENTRATION ([place]) 03/28/2024 8:28 AM EDT [facility] Respiratory Culture Few Debora krusei(A) MINIMUM INHIBITORY CONCENTRATION ([place]) 03/28/2024 8:28 AM EDT [facility] Gram Stain Result <10 per LPF Epithelial Cells 03/28/2024 8:28 AM EDT [facility] Gram Stain Result >25 per LPF White Blood Cells Seen 03/28/2024 8:28 AM EDT [facility] Gram Stain Result Few Gram Positive Bacilli 03/28/2024 8:28 AM EDT [facility] Gram Stain Result Rare Gram Positive Cocci 03/28/2024 8:28 AM EDT [facility] Sputum Sputum / Unknown Non-Blood Collection / Unknown 03/25/2024 5:50 AM EDT 03/25/2024 5:19 PM EDT Narrative [facility] - 03/28/2024 8:28 AM EDT [...] RDERABLES Final Result [facility] [address] [place] [address], * (ABNORMAL) CBC Auto Differential (03/25/2024 5:50 AM EDT) WBC 8.5 4.8 - 10.8 10*3/uL 03/25/2024 5:56 PM EDT [facility] RBC 2.47(L) 4.70 - 6.10 10*6/uL 03/25/2024 5:56 PM EDT [facility] Hemoglobin 6.9(LL) 13.7 - 16.5 g/dL 03/25/2024 5:56 PM EDT [facility] Hematocrit 21.8(L) 40.5 - 48.5 % 03/25/2024 5:56 PM EDT [facility] MCV 88.3 80.0 - 94.0 fL 03/25/2024 5:56 PM EDT [facility] MCH 27.9 26.0 - 34.0 pg 03/25/2024 5:56 PM EDT [facility] MCHC 31.7 31.0 - 36.0 g/dL 03/25/2024 5:56 PM EDT [facility] RDW 15.6(H) 12.0 - 15.0 % 03/25/2024 5:56 PM EDT [facility] RDW Standard Deviation 50.4(H) 35.1 - 43.9 fL 03/25/2024 5:56 PM EDT [facility] Platelets 202 140 - 440 10*3/uL 03/25/2024 5:56 PM EDT [facility] MPV 10.0 9.4 - 12.4 fL 03/25/2024 5:56 PM EDT [facility] Neutrophil % 67.2 50.0 - 75.0 % 03/25/2024 5:56 PM EDT [facility] Immature Grans % 0.8 0.0 - 0.9 % 03/25/2024 5:56 PM EDT [facility] Lymphocyte % 14.3(L) 20.0 - 44.0 % 03/25/2024 5:56 PM EDT [facility] Monocyte % 12.9 0.0 - 14.0 % 03/25/2024 5:56 PM EDT [facility] Eosinophil % 4.3 0.0 - 5.0 % 03/25/2024 5:56 PM EDT [facility] Basophil % 0.5 0.0 - 2.0 % 03/25/2024 5:56 PM EDT [facility] Neutrophil # 5.69 1.80 - 7.70 10*3/uL 03/25/2024 5:56 PM EDT [facility] Immature Grans # 0.07(H) 0.00 - 0.03 10*3/uL 03/25/2024 5:56 PM EDT [facility] Lymphocyte # 1.20 1.00 - 4.75 10*3/uL 03/25/2024 5:56 PM EDT [facility] Monocyte # 1.10 0.00 - 6.00 10*3/uL 03/25/2024 5:56 PM EDT [facility] Eosinophil # 0.40 0.00 - 0.80 10*3/uL 03/25/2024 5:56 PM EDT [facility] Basophil # <0.03 0.00 - 0.20 10*3/uL 03/25/2024 5:56 PM EDT [facility] nRBC % 0.0 0 - 0 /100 WBCs 03/25/2024 5:56 PM EDT [facility] nRBC # <0.01 0.00 - 0.13 10*3/uL 03/25/2024 5:56 PM EDT [facility] Blood Structure of peripheral vein / Unknown Venipuncture / Unknown 03/25/2024 5:50 AM EDT 03/25/2024 5:19 PM EDT us Cecilio ZHU LAB BLOOD ORDERABLES Final R esult Performing Organization Address City/State/[facility] Co de Phone Number [facility] [address] [place] [address], * Type and Screen (03/25/2024 5:50 AM EDT) ABO Blood Type O 03/25/2024 12:36 PM EDT [facility] RH Type Positive 03/25/2024 12:36 PM EDT [facility] Expiration Date/Time 2024-03-28 23:59 03/25/2024 12:36 PM EDT [facility] Antibody Screen Negative 03/25/2024 12:36 PM EDT [facility] Blood Structure of peripheral vein / Unknown Venipuncture / Unknown 03/25/2024 5:50 AM EDT 03/25/2024 11:34 AM EDT us Cecilio ZHU LAB BLOOD BANK TEST ORDERABL ES Edited Result - Final [facility] [address] [place] [address], [place] * (ABNORMAL) CBC Auto Differential (03/25/2024 5:50 AM EDT) WBC 8.3 4.8 - 10.8 10*3/uL 03/25/2024 1:27 PM EDT [facility] RBC 2.35(L) 4.70 - 6.10 10*6/uL 03/25/2024 1:27 PM EDT [facility] Hemoglobin 6.6(LL) 13.7 - 16.5 g/dL 03/25/2024 1:27 PM EDT [facility] Hematocrit 21.0(L) 40.5 - 48.5 % 03/25/2024 1:27 PM EDT [facility] MCV 89.4 80.0 - 94.0 fL 03/25/2024 1:27 PM EDT [facility] MCH 28.1 26.0 - 34.0 pg 03/25/2024 1:27 PM EDT [facility] MCHC 31.4 31.0 - 36.0 g/dL 03/25/2024 1:27 PM EDT [facility] RDW 16.1(H) 12.0 - 15.0 % 03/25/2024 1:27 PM EDT [facility] RDW Standard Deviation 51.3(H) 35.1 - 43.9 fL 03/25/2024 1:27 PM EDT [facility] Platelets 174 140 - 440 10*3/uL 03/25/2024 1:27 PM EDT [facility] MPV 10.9 9.4 - 12.4 fL 03/25/2024 1:27 PM EDT [facility] Neutrophil % 63.1 50.0 - 75.0 % 03/25/2024 1:27 PM EDT [facility] Immature Grans % 0.4 0.0 - 0.9 % 03/25/2024 1:27 PM EDT [facility] Lymphocyte % 17.4(L) 20.0 - 44.0 % 03/25/2024 1:27 PM EDT [facility] Monocyte % 13.8 0.0 - 14.0 % 03/25/2024 1:27 PM EDT [facility] Eosinophil % 4.8 0.0 - 5.0 % 03/25/2024 1:27 PM EDT [facility] Basophil % 0.5 0.0 - 2.0 % 03/25/2024 1:27 PM EDT [facility] Neutrophil # 5.23 1.80 - 7.70 10*3/uL 03/25/2024 1:27 PM EDT [facility] Immature Grans # 0.03 0.00 - 0.03 10*3/uL 03/25/2024 1:27 PM EDT [facility] Lymphocyte # 1.40 1.00 - 4.75 10*3/uL 03/25/2024 1:27 PM EDT [facility] Monocyte # 1.10 0.00 - 6.00 10*3/uL 03/25/2024 1:27 PM EDT [facility] Eosinophil # 0.40 0.00 - 0.80 10*3/uL 03/25/2024 1:27 PM EDT [facility] Basophil # <0.03 0.00 - 0.20 10*3/uL 03/25/2024 1:27 PM EDT [facility] nRBC % 0.0 0 - 0 /100 WBCs 03/25/2024 1:27 PM EDT [facility] nRBC # <0.01 0.00 - 0.13 10*3/uL 03/25/2024 1:27 PM EDT [facility] Blood Structure of peripheral vein / Unknown Venipuncture / Unknown 03/25/2024 5:50 AM EDT 03/25/2024 11:34 AM EDT Cecilio ZHU LAB BLOOD ORDERABLES Final R esult Performing Organization Address [facility]/ZIP Co de Phone Number [facility] [address] [address], [place] [phone] * Ammonia (03/25/2024 5:50 AM EDT) Ammonia 46 16 - 60 umol/L 03/25/2024 12:29 PM EDT [facility] Blood Structure of peripheral vein / Unknown Venipuncture / Unknown 03/25/2024 5:50 AM EDT 03/25/2024 11:34 AM EDT Cecilio ZHU LAB BLOOD ORDERABLES Final R esult Performing Organization Address [facility] Co de Phone Number [facility] [address] [address], [place] [phone] * (ABNORMAL) Comprehensive Metabolic Panel (03/25/2024 5:50 AM EDT) NA 139 136 - 145 mmol/L 03/25/2024 12:40 PM EDT [facility] K 4.5 3.5 - 5.1 mmol/L 03/25/2024 12:40 PM EDT [facility] Cl 100 98 - 109 mmol/L 03/25/2024 12:40 PM EDT [facility] CO2 29 23 - 32 mmol/L 03/25/2024 12:40 PM EDT [facility] Anion Gap 15 >=0 03/25/2024 12:40 PM EDT [facility] Glucose 101(H) 60 - 99 mg/dL 03/25/2024 12:40 PM EDT [facility] Creatinine 0.95 0.50 - 1.12 mg/dL 03/25/2024 12:40 PM EDT [facility] Calcium 8.8 8.4 - 10.4 mg/dL 03/25/2024 12:40 PM EDT [facility] Total Protein 5.9(L) 6.6 - 8.7 g/dL 03/25/2024 12:40 PM EDT [facility] Albumin 2.8(L) 3.5 - 5.0 g/dL 03/25/2024 12:40 PM EDT [facility] Bilirubin, Total 0.5 0.2 - 1.2 mg/dL 03/25/2024 12:40 PM EDT [facility] Alkaline Phosphatase 75 40 - 129 U/L 03/25/2024 12:40 PM EDT [facility] AST 34 0 - 40 U/L 03/25/2024 12:40 PM EDT [facility] ALT 17 <=41 U/L 03/25/2024 12:40 PM T [facility] BUN 15 8 - 23 mg/dL 03/25/2024 12:40 PM T [facility] eGFR 79 >=60 mL/min/1. 73m2 03/25/2024 12:40 PM T [facility] Comment:The estimated glomer [...] - 4.2 g/dL 03/25/2024 12:40 PM T [facility] A/G Ratio 0.9(L) 1.5 - 3.0 03/25/2024 12:40 PM T [facility] Blood Structure of peripheral vein / Unknown Venipuncture / Unknown 03/25/2024 5:50 AM EDT 03/25/2024 11:34 AM EDT us Cecilio ZHU LAB BLOOD ORDERABLES Final R esult [facility] [address] [place] [address], documented in this encounter Visit Diagnoses Diagnosis [...] documented as of this encounter Care Teams Allied Health Teacher Relationship Specialty Start Date End Date Uday Sheehan [address] [place] [address] [place] [address] PCP - General Internal Medicine 03/27/24 documented as of this encounter
--- OUTSIDE RECORDS SUMMARY | 2024-11-19 18:07 | XMS_ITS | Encounter Summary ---
Author Organization [facility] Address [address] [place] [address] Care Team Providers Care Elastic Attacher Coverstitch Name Role Phone Uday Sheehan MD Primary Care Provider [phone] Encounter Details Date Type Department Care Team (Late st Contact Info) Description 06/15/2024 Lab Requisition [facility] - Main Lab [address] [facility] [place] [address] Zak Zuluaga MD [address] [place], [place] [id number] Unspecified atrial fibrillation (CMS/HCC V24, CMS/HCC V28); [...] mmol/L LAB CHEMISTRY METHOD 06/17/2024 10:[address] [facility] Potassium 4.7 3.5 - 5.5 mmol/L LAB CHEMISTRY METHOD 06/17/2024 10:[address] [facility] Chloride 113(H) 96 - 110 mmol/L LAB CHEMISTRY METHOD 06/17/2024 10:[address] [facility] CO2 24 21 - 32 mmol/L LAB CHEMISTRY METHOD 06/17/2024 10:[address] [facility] Anion Gap 8 3 - 11 LAB CHEMISTRY METHOD 06/17/2024 10:[address] [facility] Glucose 86 70 - 100 mg/dL LAB CHEMISTRY METHOD 06/17/2024 10:[address] [facility] BUN 41(H) 5 - 25 mg/dL LAB CHEMISTRY METHOD 06/17/2024 10:[address] [facility] Creatinine 2.95(H) 0.70 - 1.30 mg/dL LAB CHEMISTRY METHOD 06/17/2024 10:[address] [facility] eGFR 20(L) >=60 mL/min/1. 73m2 LAB CHEMISTRY METHOD 06/17/2024 10:[address] [facility] Comment:Calculation based on the??Chronic Kidney Disease Epidemiology Collaboration (CKD-EPI) equation refit??without adjustment for race. BUN/Creatinine Ratio 13.9 LAB CHEMISTRY METHOD 06/17/2024 10:[address] [facility] Calcium 8.5 8.5 - 10.5 mg/dL LAB CHEMISTRY METHOD 06/17/2024 10:[address] [facility] AST (SGOT) 50(H) 10 - 42 unit/L LAB CHEMISTRY METHOD 06/17/2024 10:[address] [facility] ALT (SGPT) 59 10 - 60 unit/L LAB CHEMISTRY METHOD 06/17/2024 10:[address] [facility] Alkaline Phosphatase 99 42 - 121 unit/L LAB CHEMISTRY METHOD 06/17/2024 10:[address] [facility] Total Protein 5.9(L) 6.0 - 8.0 g/dL LAB CHEMISTRY METHOD 06/17/2024 10:[address] [facility] Albumin 1.7(L) 3.2 - 5.0 g/dL LAB CHEMISTRY METHOD 06/17/2024 10:[address] [facility] Total Bilirubin 0.6 0.0 - 1.4 mg/dL LAB CHEMISTRY METHOD 06/17/2024 10:[address] [facility] Blood Venous blood specimen / Unknown Venipuncture / Unknown 06/17/2024 6:45 AM EST 06/17/2024 9:11 AM EST us Zak Zuluaga MD LAB BLOOD ORDERABLES Final Resul t [facility] [address] [place] [address], * (ABNORMAL) Complete blood count (06/17/2024 6:45 AM EST) WBC 8.6 4.8 - 10.8 K/mcL LAB HEMETOLOGY METHOD 06/17/2024 9:[address] [facility] RBC 3.00(L) 4.50 - 5.50 M/mcL LAB HEMETOLOGY METHOD 06/17/2024 9:[address] [facility] Hemoglobin 7.9(L) 13.5 - 17.5 g/dL LAB HEMETOLOGY METHOD 06/17/2024 9:[address] [facility] Hematocrit 26.5(L) 42.0 - 54.0 % LAB HEMETOLOGY METHOD 06/17/2024 9:[address] [facility] MCV 88.9 79.0 - 98.0 FL LAB HEMETOLOGY METHOD 06/17/2024 9:[address] [facility] MCH 26.5(L) 27.0 - 32.0 pcg LAB HEMETOLOGY METHOD 06/17/2024 9:49 AM EST [facility] MCHC 29.8(L) 32.0 - 37.0 g/dL LAB HEMETOLOGY METHOD 06/17/2024 9:49 AM EST [facility] RDW 16.9(H) 11.0 - 15.0 % LAB HEMETOLOGY METHOD 06/17/2024 9:49 AM EST [facility] Platelets 284 130 - 400 K/mcL LAB HEMETOLOGY METHOD 06/17/2024 9:49 AM EST [facility] MPV 9.6 7.0 - 11.0 FL LAB HEMETOLOGY METHOD 06/17/2024 9:[address] [facility] NRBC 0.0 <1.0 % LAB HEMETOLOGY METHOD 06/17/2024 9:49 AM EST [facility] NRBC Absolute 0.00 <0.10 K/mcL LAB HEMETOLOGY METHOD 06/17/2024 9:[address] [facility] Blood Venous blood specimen / Unknown Venipuncture / Unknown 06/17/2024 6:45 AM EST 06/17/2024 9:18 AM EST us Zak Zuluaga MD LAB BLOOD ORDERABLES Final Resul t [facility] [address] [place] [address], documented in this encounter Visit Diagnoses Diagnosis Unspecified atrial fibrillation (CMS/HCC V24, CMS/HCC V28) Essential (primary) hypertension Unspecified essential hypertension documented in this encounter Additional Health Concerns Infection Onset Date Last Indicated Resolved Time ESBL 06/22/2024 06/22/2024 documented as of this encounter Care Teams Elastic Attacher Coverstitch Relationship Specialty Start Date End Date Uday Sheehan MD [address] [place] [address] Dr Donna [place] PCP - General Pet House Sitter 12/19/16 documented as of this encounter
--- OUTSIDE RECORDS SUMMARY | 2024-11-19 18:07 | XMS_ITS | Encounter Summary ---
Author Organization [facility] Address [address] [place] [address] Care Team Providers Care Resource Agent Name Role Phone Uday Sheehan Primary Care Provider [phone] Encounter Details Date Type Department Care Team (Late st Contact Info) Description 03/27/2024 Lab Requisition [facility] Lab [address] [place] [address] Lidia Barry, CB [address] [place] [address] Acute and chronic respiratory failure with hypoxia; [...] of this encounter Procedures * Due to [place] state law, this organization might not be [...] in this encounter Results * Due to [place] state law, this organization might not be sharing negative HIV tests. * (ABNORMAL) Manual Differential (03/27/2024 8:19 AM EDT) Neutrophil %, Manual 53 50 - 75 % 03/27/2024 9:04 AM EDT [facility] Lymphocyte %, Manual 33 33 - 54 % 03/27/2024 9:04 AM EDT [facility] Monocyte %, Manual 10 0 - 14 % 03/27/2024 9:04 AM EDT [facility] Eosinophil %, Manual 3 0 - 5 % 03/27/2024 9:04 AM EDT [facility] Basophil %, Manual 0 0 - 2 % 03/27/2024 9:04 AM EDT [facility] Plasma Cells % 1(H) 0 % 03/27/2024 9:04 AM EDT [facility] Total Neutrophil #, Manual 4.13 1.80 - 7.70 10*3/uL 03/27/2024 9:04 AM EDT [facility] Total Lymph #, Manual 2.57 1.00 - 4.75 10*3/uL 03/27/2024 9:04 AM EDT [facility] Monocyte #, Manual 0.78 0.00 - 6.00 10*3/uL 03/27/2024 9:04 AM EDT [facility] Eosinophil #, Manual 0.23 0.00 - 0.80 10*3/uL 03/27/2024 9:04 AM EDT [facility] Basophil #, Manual 0.00 0.00 - 0.20 10*3/uL 03/27/2024 9:04 AM EDT [facility] Plasma Cell # 0.08(H) 0.00 10*3/uL 09/18/202 4 9:04 AM EDT [facility] Platelet Estimate Adequate Adequate 03/27/2024 9:04 AM EDT [facility] Clumped Platelets Present(A) Not Present 03/27/2024 9:04 AM EDT [facility] RBC Morphology Present(A) Normal, No clinically significant RBC morphology present (ICSH guidelines, 2015). 03/27/2024 9:04 AM EDT [facility] Polychromasia 1+(A) Not Present 03/27/2024 9:04 AM EDT [facility] Ovalocytes 1+(A) Not Present 03/27/2024 9:04 AM EDT [facility] [place] Cells 1+(A) Not Present 03/27/2024 9:04 AM EDT [facility] Total Cells Counted 116 03/27/2024 9:04 AM EDT [facility] Blood Structure of peripheral vein / Unknown Venipuncture / Unknown 03/27/2024 8:19 AM EDT 03/27/2024 8:19 AM EDT us Lidia Barry QUARRY EQUIPMENT OPERATOR LAB BLOOD ORDERABLES Final R esult Performing Organization Address City/State/[facility] Co de Phone Number [facility] [address] [place] [address], * (ABNORMAL) CBC Auto Differential (03/27/2024 8:19 AM EDT) WBC 7.8 4.8 - 10.8 10*3/uL 03/27/2024 9:04 AM EDT [facility] RBC 3.02(L) 4.70 - 6.10 10*6/uL 03/27/2024 9:04 AM EDT [facility] Hemoglobin 8.4(L) 13.7 - 16.5 g/dL 03/27/2024 9:04 AM EDT [facility] Hematocrit 25.7(L) 40.5 - 48.5 % 03/27/2024 9:04 AM EDT [facility] MCV 85.1 80.0 - 94.0 fL 03/27/2024 9:04 AM EDT [facility] Comment:REVIEWED MCH 27.8 26.0 - 34.0 pg 03/27/2024 9:04 AM EDT [facility] MCHC 32.7 31.0 - 36.0 g/dL 03/27/2024 9:04 AM EDT [facility] RDW 16.2(H) 12.0 - 15.0 % 03/27/2024 9:04 AM EDT [facility] RDW Standard Deviation 48.9(H) 35.1 - 43.9 fL 03/27/2024 9:04 AM EDT [facility] Platelets 192 140 - 440 10*3/uL 03/27/2024 9:04 AM EDT [facility] MPV 10.5 9.4 - 12.4 fL 03/27/2024 9:04 AM EDT [facility] nRBC % 0.0 0 - 0 /100 WBCs 03/27/2024 9:04 AM EDT [facility] nRBC # <0.01 0.00 - 0.13 10*3/uL 03/27/2024 9:04 AM EDT [facility] Blood Structure of peripheral vein / Unknown Venipuncture / Unknown 03/27/2024 8:19 AM EDT 03/27/2024 8:19 AM EDT Lidia Barry QUARRY EQUIPMENT OPERATOR LAB BLOOD ORDERABLES Final R esult [facility] [address] [facility] [address] [place] [address], * (ABNORMAL) Comprehensive Metabolic Panel (03/27/2024 8:19 AM EDT) NA 139 136 - 145 mmol/L 03/27/2024 9:02 AM EDT [facility] K 03/27/2024 9:02 AM EDT [facility] Comment:Unable to result due to Hemolysis Cl 99 98 - 109 mmol/L 03/27/2024 9:02 AM EDT [facility] CO2 32 23 - 32 mmol/L 03/27/2024 9:02 AM EDT [facility] Anion Gap 03/27/2024 9:02 AM EDT [facility] Comment:Unable to result due to Hemolysis Glucose 121(H) 60 - 99 mg/dL 03/27/2024 9:02 AM EDT [facility] Creatinine 0.88 0.50 - 1.12 mg/dL 03/27/2024 9:02 AM EDT [facility] Calcium 8.8 8.4 - 10.4 mg/dL 03/27[facility]24 [facility] Total Protein 6.6 6.6 - 8.7 g/dL 03/27/2024 9:02 AM [facility] Albumin 2.8(L) 3.5 - 5.0 g/dL 03/27/2024 9[facility] Bilirubin, Total 0.4 0.2 - 1.2 mg/dL 03/27/2024 9[facility] Alkaline Phosphatase 89 40 - 129 U/L 03/27/2024 9:02 AM [facility] AST 03/27/2024 9:[facility] Comment:Unable to result due to Hemolysis ALT 03/27/2024 9:02 [facility] Comment:Unable to result due to Hemolysis BUN 17 8 - 23 mg/dL 03/27/2024 9:02 [facility] eGFR 85 >=60 mL/min/1. 73m2 03/27/2024 9:02 [facility] Comment:The estimated glomer ular filtration [...] - 4.2 g/dL 03/27/2024 9:02 AM EDT [facility] A/G Ratio 0.7(L) 1.5 - 3.0 03/27/2024 9:02 AM EDT [facility] Blood Structure of peripheral vein / Unknown Venipuncture / Unknown 03/27/2024 8:19 AM EDT 03/27/2024 8:19 AM EDT us Lidia Barry QUARRY EQUIPMENT OPERATOR LAB BLOOD ORDERABLES Final R esult Performing Organization Address City/State/[facility] Co de Phone Number [facility] [address] [place] [address], documented in this encounter Visit Diagnoses Diagnosis [...] documented as of this encounter Care Teams Resource Agent Relationship Specialty Start Date End Date Uday Sheehan [address] [place] [address] [place] [address] PCP - General Internal Medicine 03/27/24 documented as of this encounter
--- OUTSIDE RECORDS SUMMARY | 2024-11-19 18:07 | XMS_ITS | Encounter Summary ---
Author Organization [facility] Address [address] [place] [address] Care Team Providers Care Chenille Machine Operator Name Role Phone Uday Sheehan MD Primary Care Provider [phone] Encounter Details Date Type Department Care Team (Late st Contact Info) Description 07/19/2024 Lab Requisition [facility] - Main Lab [address] [place] [address] Tabby Bledsoe MD [address] [address] Bacteremia Social History Tobacco Use Types Packs/Day [...] LAB CHEMISTRY METHOD 07/22/2024 10:29 AM EST [facility] Potassium 4.3 3.5 - 5.5 mmol/L LAB CHEMISTRY METHOD 07/22/2024 10:29 AM [facility] Chloride 107 96 - 110 mmol/L LAB CHEMISTRY METHOD 07/22/2024 10:29 AM [facility] CO2 31 21 - 32 mmol/L LAB CHEMISTRY METHOD 07/22/2024 10:29 AM [facility] Anion Gap 5 3 - 11 LAB CHEMISTRY METHOD 07/22/2024 10:29 AM [facility] Glucose 87 70 - 100 mg/dL LAB CHEMISTRY METHOD 07/22/2024 10:29 AM [facility] BUN 24 5 - 25 mg/dL LAB CHEMISTRY METHOD 07/22/2024 10:29 AM [facility] Creatinine 2.18(H) 0.70 - 1.30 mg/dL LAB CHEMISTRY METHOD 07/22/2024 10:29 AM [facility] eGFR 29(L) >=60 mL/min/1. 73m2 LAB CHEMISTRY METHOD 07/22/2024 10:29 AM [facility] Comment:Calculation based on the??Chronic Kidney Disease Epidemiology Collaboration (CKD-EPI) equation refit??without adjustment for race. BUN/Creatinine Ratio 11.0 LAB CHEMISTRY METHOD 07/22/2024 10:29 AM [facility] Calcium 9.5 8.5 - 10.5 mg/dL LAB CHEMISTRY METHOD 07/22/2024 10:29 AM [facility] AST (SGOT) 14 10 - 42 unit/L LAB CHEMISTRY METHOD 07/22/2024 10:29 AM [facility] ALT (SGPT) 12 10 - 60 unit/L LAB CHEMISTRY METHOD 07/22/2024 10:29 AM [facility] Alkaline Phosphatase 92 42 - 121 unit/L LAB CHEMISTRY METHOD 07/22/2024 10:29 AM [facility] Total Protein 5.6(L) 6.0 - 8.0 g/dL LAB CHEMISTRY METHOD 07/22/2024 10:29 AM [facility] Albumin 1.6(L) 3.2 - 5.0 g/dL LAB CHEMISTRY METHOD 07/22/2024 10:29 AM [facility] Total Bilirubin 0.3 0.0 - 1.4 mg/dL LAB CHEMISTRY METHOD 07/22/2024 10:29 AM [facility] Blood Venous blood specimen / Unknown Venipuncture / Unknown 07/22/2024 7:38 AM EST 07/22/2024 9:41 AM EST us Tabby Bledsoe MD LAB BLOOD ORDERABLES Fin al Result [facility] [address] [place] [address], [place] [phone] * (ABNORMAL) Complete blood count (07/22/2024 7:38 AM EST) WBC 5.4 4.8 - 10.8 K/mcL LAB HEMETOLOGY METHOD 07/22/2024 10:01 AM [facility] RBC 2.90(L) 4.50 - 5.50 M/mcL LAB HEMETOLOGY METHOD 07/22/2024 10:01 AM [facility] Hemoglobin 7.5(L) 13.5 - 17.5 g/dL LAB HEMETOLOGY METHOD 07/22/2024 10:01 AM [facility] Hematocrit 25.6(L) 42.0 - 54.0 % LAB HEMETOLOGY METHOD 07/22/2024 10:01 AM [facility] MCV 88.3 79.0 - 98.0 FL LAB HEMETOLOGY METHOD 07/22/2024 10:01 AM [facility] MCH 25.9(L) 27.0 - 32.0 pcg LAB HEMETOLOGY METHOD 07/22/2024 10:01 AM [facility] MCHC 29.3(L) 32.0 - 37.0 g/dL LAB HEMETOLOGY METHOD 07/22/2024 10:01 AM [facility] RDW 19.0(H) 11.0 - 15.0 % LAB HEMETOLOGY METHOD 07/22/2024 10:01 AM [facility] Platelets 259 130 - 400 K/mcL LAB HEMETOLOGY METHOD 07/22/2024 10:01 AM [facility] MPV 9.3 7.0 - 11.0 FL LAB HEMETOLOGY METHOD 07/22/2024 10:01 AM [facility] NRBC 0.0 <1.0 % LAB HEMETOLOGY METHOD 07/22/2024 10:01 AM [facility] NRBC Absolute 0.00 <0.10 K/mcL LAB HEMETOLOGY METHOD 07/22/2024 10:01 AM [facility] Blood Venous blood specimen / Unknown Venipuncture / Unknown 07/22/2024 7:38 AM EST 07/22/2024 9:41 AM EST Tabby Bledsoe MD LAB BLOOD ORDERABLES Fin al Result [facility] [address] [place] [address], documented in this encounter Visit Diagnoses Diagnosis Bacteremia documented in this encounter Additional Health Concerns Infection Onset Date Last Indicated Resolved Time ESBL 06/22/2024 06/22/2024 documented as of this encounter Care Teams Chenille Machine Operator Relationship Specialty Start Date End Date Uday Sheehan MD [address] [facility] [address] Donna [place] PCP - General Nurse Substance Abuse 12/19/16 documented as of this encounter
--- OUTSIDE RECORDS SUMMARY | 2024-11-19 18:07 | XMS_ITS | Encounter Summary ---
Author Organization [facility] Address [address] [place] [address] Care Team Providers Care Hand Stone Polisher Name Role Phone Uday Sheehan MD Primary Care Provider Encounter Details Date Type Department Care Team (Late st Contact Info) Description 06/21/2024 Lab Requisition [facility] - Main Lab [address] [place] [address] Pearl Garcia MD [address] [place] [address] Unspecified atrial fibrillation (CMS/HCC V24, [...] 06/24/2024 12:29 PM [facility] Potassium 3.8 3.5 - 5.5 [...] 06/24/2024 12:29 PM [facility] Blood Venous blood specimen / Unknown Venipuncture / Unknown 06/24/2024 6:49 AM EST 06/24/2024 10:18 AM EST us Pearl Garcia MD LAB BLOOD ORDERABLES Final Resul t [facility] [address] [place] [address], * (ABNORMAL) Complete blood count (06/24/2024 6:49 AM EST) WBC 10.9(H) 4.8 - 10.8 K/mcL LAB HEMETOLOGY METHOD 06/24/2024 10:45 AM [facility] RBC 3.00(L) 4.50 - 5.50 M/[facility] LAB HEMETOLOGY METHOD 06/24/2024 10:45 AM [facility] Hemoglobin 7.6(L) 13.5 - 17.5 g/dL LAB HEMETOLOGY METHOD 06/24/2024 10:45 AM [facility] Hematocrit 26.8(L) 42.0 - 54.0 % LAB HEMETOLOGY METHOD 06/24/2024 10:45 AM [facility] MCV 90.5 79.0 - 98.0 FL LAB HEMETOLOGY METHOD 06/24/2024 10:45 AM EST [facility] MCH 25.7(L) 27.0 - 32.0 pcg LAB HEMETOLOGY METHOD 06/24/2024 10:45 AM [facility] MCHC 28.4(L) 32.0 - 37.0 g/dL LAB HEMETOLOGY METHOD 06/24/2024 10:45 AM [facility] RDW 17.5(H) 11.0 - 15.0 % LAB HEMETOLOGY METHOD 06/24/2024 10:45 AM [facility] Platelets 239 130 - 400 K/mcL LAB HEMETOLOGY METHOD 06/24/2024 10:45 AM [facility] MPV 9.8 7.0 - 11.0 [...] t [facility] [address] [place] [address], documented in this encounter Visit Diagnoses Diagnosis Unspecified atrial fibrillation (CMS/HCC V24, CMS/HCC V28) Essential (primary) hypertension Unspecified essential hypertension documented in this encounter Additional Health Concerns Infection Onset Date Last Indicated Resolved Time ESBL 06/22/2024 06/22/2024 documented as of this encounter Care Teams Hand Stone Polisher Relationship Specialty Start Date End Date Uday Sheehan MD [address] [facility] [address] Donna [place] PCP - General Personal Development Coach 12/19/16 documented as of this encounter
--- OUTSIDE RECORDS SUMMARY | 2024-11-19 18:07 | XMS_ITS | Encounter Summary ---
Author Organization [facility] Address [address] [place] [address] Care Team Providers Care Caddie Name Role Phone Uday Sheehan Primary Care Provider [phone] Encounter Details Date Type Department Care Team (Late st Contact Info) Description 04/09/2024 Lab Requisition [facility] [address] [place] [address] Salo Whyte MD [address] [place] [address] Acute respiratory failure with hypoxia; No diagnosis [...] N-terminal ProBrain Natriuretic Peptide - [facility] & MEM/ESTELA/[facility]air Only (04/09/2024 8:51 AM EDT) Pro-B-Type Natriuretic Peptide 523 <=1,800 pg/mL 04/09/2024 9:31 AM EDT [facility] Comment: RULE IN CHF >/= [...] BLOOD ORDERABLES Final Result Performing Organization Address City/[facility]/ZIP Co de Phone Number [facility] [address] [address], [place] [phone] * Vitamin B12 (04/09/2024 8:51 AM EDT) Vitamin B12 636 232 - 1,245 pg/mL 04/09/2024 9:42 AM EDT [facility] Blood Structure of peripheral vein / Unknown Venipuncture / Unknown 04/09/2024 8:51 AM EDT 04/09/2024 8:52 AM EDT us Salo Whyte MD LAB BLOOD ORDERABLES Final Result Performing Organization Address [facility] Co de Phone Number [facility] [address] [address], [place] [phone] * (ABNORMAL) CBC Auto Differential (04/09/2024 8:51 AM EDT) Pathologist [facility] WBC 8.3 4.8 - 10.8 10*3/uL 04/09/2024 9:14 AM EDT [facility] RBC 2.86(L) 4.70 - 6.10 10*6/uL 04/09/2024 9:14 AM EDT [facility] Hemoglobin 8.0(L) 13.7 - 16.5 g/dL 04/09/2024 9:14 AM EDT [facility] Hematocrit 25.7(L) 40.5 - 48.5 % 04/09/2024 9:14 AM EDT [facility] MCV 89.9 80.0 - 94.0 fL 04/09/2024 9:14 AM EDT [facility] MCH 28.0 26.0 - 34.0 pg 04/09/2024 9:14 AM EDT [facility] MCHC 31.1 31.0 - 36.0 g/dL 04/09/2024 9:14 AM EDT [facility] RDW 17.2(H) 12.0 - 15.0 % 04/09/2024 9:14 AM EDT [facility] RDW Standard Deviation 54.8(H) 35.1 - 43.9 fL 04/09/2024 9:14 AM EDT [facility] Platelets 228 140 - 440 10*3/uL 04/09/2024 9:14 AM EDT [facility] MPV 10.8 9.4 - 12.4 fL 04/09/2024 9:14 AM EDT [facility] Neutrophil % 58.2 50.0 - 75.0 % 04/09/2024 9:14 AM EDT [facility] Immature Grans % 0.7 0.0 - 0.9 % 04/09/2024 9:14 AM EDT [facility] Lymphocyte % 22.1 20.0 - 44.0 % 04/09/2024 9:14 AM EDT [facility] Monocyte % 11.3 0.0 - 14.0 % 04/09/2024 9:14 AM EDT [facility] Eosinophil % 7.1(H) 0.0 - 5.0 % 04/09/2024 9:14 AM EDT [facility] Basophil % 0.6 0.0 - 2.0 % 04/09/2024 9:14 AM EDT [facility] Neutrophil # 4.85 1.80 - 7.70 10*3/uL 04/09/2024 9:14 AM EDT [facility] Immature Grans # 0.06(H) 0.00 - 0.03 10*3/uL 04/09/2024 9:14 AM EDT [facility] Lymphocyte # 1.80 1.00 - 4.75 10*3/uL 04/09/2024 9:14 AM EDT [facility] Monocyte # 0.90 0.00 - 6.00 10*3/uL 04/09/2024 9:14 AM EDT [facility] Eosinophil # 0.60 0.00 - 0.80 10*3/uL 04/09/2024 9:14 AM EDT [facility] Basophil # 0.10 0.00 - 0.20 10*3/uL 04/09/2024 9:14 AM EDT [facility] nRBC % 0.0 0 - 0 /100 WBCs 04/09/2024 9:14 AM EDT [facility] nRBC # <0.01 0.00 - 0.13 10*3/uL 04/09/2024 9:14 AM EDT [facility] Blood Structure of peripheral vein / Unknown Venipuncture / Unknown 04/09/2024 8:51 AM EDT 04/09/2024 8:52 AM EDT Salo Whyte MD LAB BLOOD ORDERABLES Final Result Performing Organization Address City/[facility]/ZIP Co de Phone Number [facility] [address] [address], [place] [phone] * (ABNORMAL) TSH (04/09/2024 8:51 AM EDT) TSH 10.800(H) 0.270 - 4.200 uIU/mL 04/09/2024 9:34 AM EDT [facility] Blood Structure of peripheral vein / Unknown Venipuncture / Unknown 04/09/2024 8:51 AM EDT 04/09/2024 8:52 AM EDT Salo Whyte MD LAB BLOOD ORDERABLES Final Result Performing Organization Address City/[facility]/ZIP Co de Phone Number [facility] [address] [address], [place] [phone] * T4, Free (04/09/2024 8:51 AM EDT) Free T4 1.40 0.80 - 1.80 ng/dL 04/09/2024 9:34 AM EDT [facility] Comment: Females: (ng/dL) First Trimester [...] BLOOD ORDERABLES Final Result Performing Organization Address [facility]/ZIP Co de Phone Number [facility] [address] [address], [place] [phone] * Magnesium (04/09/2024 8:51 AM EDT) MG 2.5 1.5 - 2.5 mg/dL 04/09/2024 9:34 AM EDT [facility] Blood Structure of peripheral vein / Unknown Venipuncture / Unknown 04/09/2024 8:51 AM EDT 04/09/2024 8:52 AM EDT Salo Whyte MD LAB BLOOD ORDERABLES Final Result [facility] [address] [address], [place] [phone] * Hemoglobin A1c (04/09/2024 8:51 AM EDT) Hemoglobin A1c 5.6 4.0 - 5.7 % 04/09/2024 9:25 AM EDT [facility] Estimated Average Glucose 114 mg/dL 04/09/2024 9:25 AM EDT [facility] Blood Structure of peripheral vein / Unknown Venipuncture / Unknown 04/09/2024 8:51 AM EDT 04/09/2024 8:52 AM EDT Salo Whyte MD LAB BLOOD ORDERABLES Final Result Performing Organization Address [facility]/ZIP Co de Phone Number [facility] [address] [address], [place] [phone] * Ammonia (04/09/2024 8:51 AM EDT) Ammonia 20 16 - 60 umol/L 04/09/2024 9:24 AM EDT [facility] Blood Structure of peripheral vein / Unknown Venipuncture / Unknown 04/09/2024 8:51 AM EDT 04/09/2024 8:52 AM EDT Salo Whyte MD LAB BLOOD ORDERABLES Final Result Performing Organization Address [facility] de Phone Number [facility] [address] [address], [place] [phone] * (ABNORMAL) Comprehensive Metabolic Panel (04/09/2024 8:51 AM EDT) NA 144 136 - 145 mmol/L 04/09/2024 9:34 AM EDT [facility] K 4.0 3.5 - 5.1 mmol/L 04/09/2024 9:34 AM EDT [facility] Cl 104 98 - 109 mmol/L 04/09/2024 9:34 AM EDT [facility] CO2 32 22 - 32 mmol/L 04/09/2024 9:34 AM EDT [facility] Anion Gap 12 >=0 04/09/2024 9:34 AM EDT [facility] Glucose 96 60 - 99 mg/dL 04/09/2024 9:34 AM EDT [facility] Creatinine 1.30(H) 0.50 - 1.12 mg/dL 04/09/2024 9:34 AM EDT [facility] Calcium 9.7 8.4 - 10.4 mg/dL 04/09/2024 9:34 AM T [facility] Total Protein 6.8 6.6 - 8.7 g/dL 04/09/2024 9:34 AM [facility] Albumin 3.1(L) 3.5 - 5.0 g/dL 04/09/2024 9:34 AM T [facility] Bilirubin, Total 0.2 0.2 - 1.2 mg/dL 04/09/2024 9:34 AM [facility] Alkaline Phosphatase 85 40 - 129 U/L 04/09/2024 9:34 AM [facility] AST 40 0 - 40 U/L 04/09/2024 9:34 AM [facility] ALT 28 <=41 U/L 04/09/2024 9:34 AM [facility] BUN 56(H) 8 - 23 mg/dL 04/09/2024 9:34 AM [facility] eGFR 54(L) >=60 mL/min/1. 73m2 04/09/2024 9:34 AM [facility] Comment:The estimated glomer ular filtration rate (eGFR) is calculated using a new formula developed by the [facility] task force to eliminate race-based correction [...] 2.1 - 4.2 g/dL 04/09/2024 9:34 AM [facility] A/G Ratio 0.8(L) 1.5 - 3.0 04/09/2024 9:34 AM EDT [facility] Blood Structure of peripheral vein / Unknown Venipuncture / Unknown 04/09/2024 8:51 AM EDT 04/09/2024 8:52 AM EDT Salo Whyte MD LAB BLOOD ORDERABLES Final Result [facility] [address] [place] [address], documented in this encounter Visit Diagnoses Diagnosis Acute respiratory failure with hypoxia (HCC) No diagnosis documented in this encounter Additional Health Concerns Infection Onset Date Last Indicated Resolved Time 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
--- OUTSIDE RECORDS SUMMARY | 2024-11-19 18:07 | XMS_ITS | Encounter Summary ---
Author Organization [facility] Address [address] [place] [address] Care Team Providers Care Java Web Architect Name Role Phone Uday Sheehan Primary Care Provider [phone] Encounter Details Date Type Department Care Team (Late st Contact Info) Description 04/11/2024 Lab Requisition [facility] [address] [place] [address] Salo Whyte MD [address] [place] [address] Acute and chronic respiratory failure with hypoxia; [...] - 10.8 10*3/uL 04/11/2024 11:04 AM EDT [facility] RBC 2.95(L) 4.70 - 6.10 10*6/uL 04/11/2024 11:04 AM EDT [facility] Hemoglobin 8.0(L) 13.7 - 16.5 g/dL 04/11/2024 11:04 AM EDT [facility] Hematocrit 26.3(L) 40.5 - 48.5 % 04/11/2024 11:04 AM EDT [facility] MCV 89.2 80.0 - 94.0 fL 04/11/2024 11:04 AM EDT [facility] MCH 27.1 26.0 - 34.0 pg 04/11/2024 11:04 AM EDT [facility] MCHC 30.4(L) 31.0 - 36.0 g/dL 04/11/2024 11:04 AM EDT [facility] RDW 17.3(H) 12.0 - 15.0 % 04/11/2024 11:04 AM EDT [facility] RDW Standard Deviation 54.4(H) 35.1 - 43.9 fL 04/11/2024 11:04 AM EDT [facility] Platelets 226 140 - 440 10*3/uL 04/11/2024 11:04 AM EDT [facility] MPV 10.2 9.4 - 12.4 fL 04/11/2024 11:04 AM EDT [facility] Neutrophil % 62.6 50.0 - 75.0 % 04/11/2024 11:04 AM EDT [facility] Immature Grans % 0.8 0.0 - 0.9 % 04/11/2024 11:04 AM EDT [facility] Lymphocyte % 21.4 20.0 - 44.0 % 04/11/2024 11:04 AM EDT [facility] Monocyte % 10.4 0.0 - 14.0 % 04/11/2024 11:04 AM EDT [facility] Eosinophil % 4.3 0.0 - 5.0 % 04/11/2024 11:04 AM EDT [facility] Basophil % 0.5 0.0 - 2.0 % 04/11/2024 11:04 AM EDT [facility] Neutrophil # 5.02 1.80 - 7.70 10*3/uL 04/11/2024 11:04 AM EDT [facility] Immature Grans # 0.06(H) 0.00 - 0.03 10*3/uL 04/11/2024 11:04 AM EDT [facility] Lymphocyte # 1.70 1.00 - 4.75 10*3/uL 04/11/2024 11:04 AM EDT [facility] Monocyte # 0.80 0.00 - 6.00 10*3/uL 04/11/2024 11:04 AM EDT [facility] Eosinophil # 0.30 0.00 - 0.80 10*3/uL 04/11/2024 11:04 AM EDT [facility] Basophil # <0.03 0.00 - 0.20 10*3/uL 04/11/2024 11:04 AM EDT [facility] nRBC % 0.0 0 - 0 /100 WBCs 04/11/2024 11:04 AM EDT [facility] nRBC # <0.01 0.00 - 0.13 10*3/uL 04/11/2024 11:04 AM EDT [facility] Blood Structure of peripheral vein / Unknown Venipuncture / Unknown 04/11/2024 10:41 AM EDT 04/11/2024 10:41 AM EDT Salo Whyte MD LAB BLOOD ORDERABLES Final Result [facility] [address] [place] [address], * (ABNORMAL) Basic Metabolic Panel (04/11/2024 10:41 AM EDT) NA 141 136 - 145 mmol/L 04/11/2024 11:19 AM EDT [facility] K 3.8 3.5 - 5.1 mmol/L 04/11/2024 11:19 AM EDT [facility] Cl 100 98 - 109 mmol/L 04/11/2024 11:19 AM EDT [facility] CO2 32 22 - 32 mmol/L 04/11/2024 11:19 AM EDT [facility] BUN 45(H) 8 - 23 mg/dL 04/11/2024 11:19 AM EDT [facility] Creatinine 1.10 0.50 - 1.12 mg/dL 04/11/2024 11:19 AM EDT [facility] Glucose 106(H) 60 - 99 mg/dL 04/11/2024 11:19 AM EDT [facility] Calcium 9.3 8.4 - 10.4 mg/dL 04/11/2024 11:19 AM EDT [facility] Anion Gap 13 >=0 04/11/2024 11:19 AM EDT [facility] eGFR 66 >=60 mL/min/1. 73m2 04/11/2024 11:19 AM EDT [facility] Comment:The estimated glomer ular filtration rate [...] Whyte MD LAB BLOOD ORDERABLES Final Result [facility] [address] [place] [address], documented in this encounter Visit Diagnoses Diagnosis Acute and chronic respiratory failure with hypoxia (HCC) No diagnosis documented in this encounter Additional Health Concerns Infection Onset Date Last Indicated Resolved Time Multidrug resistant organisms MRSA 03/25/20242023 documented as of this encounter Care Teams Java Web Architect Relationship Specialty Start Date End Date Uday Sheehan [address] [place] [address] [place] [address] PCP - General Internal Medicine 03/27/24 documented as of this encounter
--- OUTSIDE RECORDS SUMMARY | 2024-11-19 18:07 | XMS_ITS | Encounter Summary ---
Author Organization [facility] Address [address] [place] [address] Care Team Providers Care Immigration Judge Name Role Phone Uday Sheehan MD Primary Care Provider [phone] Encounter Details Date Type Department Care Team (Late st Contact Info) Description 11/09/2024 Lab Requisition [facility] [address] [place] [address] Tabby Bledsoe MD [address] [address] Bacteremia Social History Tobacco Use Types Packs/Day [...] LAB CHEMISTRY METHOD 11/11/2024 2:44 PM EDT [facility] Potassium 4.3 3.5 - 5.5 mmol/L LAB CHEMISTRY METHOD 11/11/2024 2:44 PM [facility] Chloride 108 96 - 110 mmol/L LAB CHEMISTRY METHOD 11/11/2024 2:44 PM [facility] CO2 28 21 - 32 mmol/L LAB CHEMISTRY METHOD 11/11/2024 2:44 PM [facility] Anion Gap 7 3 - 11 LAB CHEMISTRY METHOD 11/11/2024 2:44 PM [facility] Glucose 125(H) 70 - 100 mg/dL LAB CHEMISTRY METHOD 11/11/2024 2:44 PM [facility] BUN 29(H) 5 - 25 mg/dL LAB CHEMISTRY METHOD 11/11/2024 2:44 PM [facility] Creatinine 1.27 0.70 - 1.30 mg/dL LAB CHEMISTRY METHOD 11/11/2024 2:44 PM [facility] eGFR 56(L) >=60 mL/min/1. 73m2 LAB CHEMISTRY METHOD 11/11/2024 2:44 PM [facility] Comment:Calculation based on the??Chronic Kidney Disease Epidemiology Collaboration (CKD-EPI) equation refit??without adjustment for race. BUN/Creatinine Ratio 22.8 LAB CHEMISTRY METHOD 11/11/2024 2:44 PM [facility] Calcium 8.1(L) 8.5 - 10.5 mg/dL LAB CHEMISTRY METHOD 11/11/2024 2:44 PM [facility] AST (SGOT) 41 10 - 42 unit/L LAB CHEMISTRY METHOD 11/11/2024 2:44 PM [facility] ALT (SGPT) 45 10 - 60 unit/L LAB CHEMISTRY METHOD 11/11/2024 2:44 PM [facility] Alkaline Phosphatase 94 42 - 121 unit/L LAB CHEMISTRY METHOD 11/11/2024 2:44 PM [facility] Total Protein 5.2(L) 6.0 - 8.0 g/dL LAB CHEMISTRY METHOD 11/11/2024 2:44 PM EDT [facility] Albumin 1.2(L) 3.2 - 5.0 g/dL LAB CHEMISTRY METHOD 11/11/2024 2:44 PM EDT [facility] Total Bilirubin 0.3 0.0 - 1.4 mg/dL LAB CHEMISTRY METHOD 11/11/2024 2:44 PM EDT [facility] Blood Venous blood specimen / Unknown Venipuncture / Unknown 11/11/2024 11:28 AM EDT 11/11/2024 12:52 PM EDT us Tabby Bledsoe MD LAB BLOOD ORDERABLES Fin al Result [facility] [address] [place] [address], * (ABNORMAL) Complete blood count (11/11/2024 11:28 AM EDT) WBC 6.2 4.8 - 10.8 K/mcL LAB HEMETOLOGY METHOD 11/11/2024 1:40 PM EDT [facility] RBC 2.50(L) 4.50 - 5.50 M/mcL LAB HEMETOLOGY METHOD 11/11/2024 1:40 PM [facility] Hemoglobin 6.7(L) 13.5 - 17.5 g/dL LAB HEMETOLOGY METHOD 11/11/2024 1:40 PM EDT [facility] Hematocrit 22.8(L) 42.0 - 54.0 % LAB HEMETOLOGY METHOD 11/11/2024 1:40 PM EDT [facility] MCV 91.9 79.0 - 98.0 FL LAB HEMETOLOGY METHOD [facility] MCH 27.0 27.0 - 32.0 pcg LAB HEMETOLOGY METHOD 11/11/2024 1:40 PM EDT [facility] MCHC 29.4(L) 32.0 - 37.0 g/dL LAB HEMETOLOGY METHOD 11/11/2024 1:40 PM EDT [facility] RDW 17.9(H) 11.0 - 15.0 % LAB HEMETOLOGY METHOD 11/11/2024 1:40 PM EDT [facility] Platelets 268 130 - 400 K/mcL LAB HEMETOLOGY METHOD 11/11/2024 1:40 PM EDT [facility] MPV 9.3 7.0 - 11.0 FL LAB HEMETOLOGY METHOD 11/11/2024 1:40 PM EDT [facility] NRBC 0.0 <1.0 % LAB HEMETOLOGY METHOD 11/11/2024 1:40 PM EDT [facility] NRBC Absolute 0.00 <0.10 K/mcL LAB HEMETOLOGY METHOD 11/11/2024 1:40 PM EDT [facility] Blood Venous blood specimen / Unknown Venipuncture / Unknown 11/11/2024 11:28 AM EDT 11/11/2024 12:52 PM EDT us Tabby Bledsoe MD LAB BLOOD ORDERABLES Fin al Result [facility] [address] [place] [address], documented in this encounter Visit Diagnoses Diagnosis Bacteremia documented in this encounter Additional Health Concerns Infection Onset Date Last Indicated Resolved Time ESBL 06/22/2024 06/22/2024 documented as of this encounter Care Teams Immigration Judge Relationship Specialty Start Date End Date Uday Sheehan MD [address] [place] [address] Dr [place] PCP - General Prepress Specialist 12/19/16 documented as of this encounter
--- OUTSIDE RECORDS SUMMARY | 2024-11-19 18:07 | XMS_ITS | Encounter Summary ---
Author Organization [facility] Address [address] [place] [address] Care Team Providers Care Home Care Administrator Name Role Phone Uday Sheehan MD Primary Care Provider [phone] Encounter Details Date Type Department Care Team (Late st Contact Info) Description 11/17/2024 Lab Requisition [facility] [address] [place] [address] Tabby Bledsoe MD [address] [address] Bacteremia Social History Tobacco Use Types Packs/Day [...] Associated Diagnosis Comments COMPLETE BLOOD COUNT Routine 11/18/2024 11:10 AM EDT Bacteremia COMPREHENSIVE METABOLIC PANEL Routine 11/18/2024 11:10 AM EDT Bacteremia documented in this encounter Results * (ABNORMAL) Comprehensive metabolic panel (11/18/2024 11:10 AM EDT) Sodium 140 133 - 145 mmol/L LAB CHEMISTRY METHOD 11/18/2024 1:[address] [facility] Potassium 3.9 3.5 - 5.5 mmol/L LAB CHEMISTRY METHOD 11/18/2024 1:33 PM [facility] Chloride 106 96 - 110 mmol/L LAB CHEMISTRY METHOD 11/18/2024 1:33 PM [facility] CO2 30 21 - 32 mmol/L LAB CHEMISTRY METHOD 11/18/2024 1:33 PM [facility] Anion Gap 4 3 - 11 LAB CHEMISTRY METHOD 11/18/2024 1:33 PM [facility] Glucose 125(H) 70 - 100 mg/dL LAB CHEMISTRY METHOD 11/18/2024 1:33 PM [facility] BUN 39(H) 5 - 25 mg/dL LAB CHEMISTRY METHOD 11/18/2024 1:33 PM [facility] Creatinine 1.15 0.70 - 1.30 mg/dL LAB CHEMISTRY METHOD 11/18/2024 1:33 PM [facility] eGFR 63 >=60 mL/min/1. 73m2 LAB CHEMISTRY METHOD 11/18/2024 1:33 PM [facility] Comment:Calculation based on the Chronic Kidney Disease Epidemiology Collaboration (CKD-EPI) equation refit without adjustment for race. BUN/Creatinine Ratio 33.9 LAB CHEMISTRY METHOD 11/18/2024 1:33 PM [facility] Calcium 7.7(L) 8.5 - 10.5 mg/dL LAB CHEMISTRY METHOD 11/18/2024 1:33 PM [facility] AST (SGOT) 41 10 - 42 unit/L LAB CHEMISTRY METHOD 11/18/2024 1:33 PM [facility] ALT (SGPT) 42 10 - 60 unit/L LAB CHEMISTRY METHOD 11/18/2024 1:33 PM [facility] Alkaline Phosphatase 131(H) 42 - 121 unit/L LAB CHEMISTRY METHOD 11/18/2024 1:33 PM [facility] Total Protein 5.7(L) 6.0 - 8.0 g/dL LAB CHEMISTRY METHOD 11/18/2024 1:[address] [facility] Albumin 1.4(L) 3.2 - 5.0 g/dL LAB CHEMISTRY METHOD 11/18/2024 1:[address] [facility] Total Bilirubin 0.3 0.0 - 1.4 mg/dL LAB CHEMISTRY METHOD 11/18/2024 1:[address] [facility] Blood Venous blood specimen / Unknown Venipuncture / Unknown 11/18/2024 11:10 AM EDT 11/18/2024 11:58 AM EDT us Tabby Bledsoe MD LAB BLOOD ORDERABLES Fin al Result [facility] [address] [place] [address], * (ABNORMAL) Complete blood count (11/18/2024 11:10 AM EDT) WBC 6.3 4.8 - 10.8 K/mcL LAB HEMETOLOGY METHOD 11/18/2024 2:05 PM [facility] RBC 2.70(L) 4.50 - 5.50 M/mcL LAB HEMETOLOGY METHOD 11/18/2024 2:05 PM [facility] Hemoglobin 7.2(L) 13.5 - 17.5 g/dL LAB HEMETOLOGY METHOD 11/18/2024 2:[address] [facility] Hematocrit 24.5(L) 42.0 - 54.0 % LAB HEMETOLOGY METHOD 11/18/2024 2:[address] [facility] MCV 90.7 79.0 - 98.0 FL LAB HEMETOLOGY METHOD 11/18/2024 2:05 PM [facility] MCH 26.7(L) 27.0 - 32.0 pcg LAB HEMETOLOGY METHOD 11/18/2024 2:[address] [facility] MCHC 29.4(L) 32.0 - 37.0 g/dL LAB HEMETOLOGY METHOD 11/18/2024 2:[address] [facility] RDW 17.8(H) 11.0 - 15.0 % LAB HEMETOLOGY METHOD 11/18/2024 2:[address] [facility] Platelets 217 130 - 400 K/mcL LAB HEMETOLOGY METHOD 11/18/2024 2:[address] [facility] MPV 9.3 7.0 - 11.0 FL LAB HEMETOLOGY METHOD 11/18/2024 2:[address] [facility] NRBC 0.0 <1.0 % LAB HEMETOLOGY METHOD 11/18/2024 2:[address] [facility] NRBC Absolute 0.00 <0.10 K/mcL LAB HEMETOLOGY METHOD 11/18/2024 2:[address] [facility] Blood Venous blood specimen / Unknown Venipuncture / Unknown 11/18/2024 11:10 AM EDT 11/18/2024 11:58 AM EDT us Tabby Bledsoe MD LAB BLOOD ORDERABLES Fin al Result [facility] [address] [place] [address], documented in this encounter Visit Diagnoses Diagnosis Bacteremia documented in this encounter Additional Health Concerns Infection Onset Date Last Indicated Resolved Time ESBL 06/22/2024 06/22/2024 documented as of this encounter Care Teams Home Care Administrator Relationship Specialty Start Date End Date Uday Sheehan MD [address] [place] [address] Dr Thompson [place] PCP - General Gameplay Engineer 12/19/16 documented as of this encounter
--- OUTSIDE RECORDS SUMMARY | 2024-11-19 18:08 | XMS_ITS | Encounter Summary ---
Author Organization [facility] Address [address] [place] [address] Care Team Providers Care Property Custodian Name Role Phone Uday Sheehan MD Primary Care Provider [phone] Encounter Details Date Type Department Care Team (Late st Contact Info) Description 10/06/2024 Lab Requisition [facility] - Main Lab [address] [place] [address] Tabby Bledsoe MD [address] [address] Bacteremia Social History Tobacco Use Types Packs/Day [...] LAB CHEMISTRY METHOD 10/07/2024 12:51 PM EDT [facility] Potassium 4.2 3.5 - 5.5 mmol/L LAB CHEMISTRY METHOD 10/07/2024 12:51 PM [facility] Chloride 102 96 - 110 mmol/L LAB CHEMISTRY METHOD 10/07/2024 12:51 PM [facility] LAB CO2 27 21 - 32 mmol/L LAB CHEMISTRY METHOD 10/07/2024 12:51 PM [facility] LAB Anion Gap 7 3 - 11 LAB CHEMISTRY METHOD 10/07/2024 12:51 PM [facility] LAB Glucose 97 70 - 100 mg/dL LAB CHEMISTRY METHOD 10/07/2024 12:51 PM [facility] LAB BUN 31(H) 5 - 25 mg/dL LAB CHEMISTRY METHOD 10/07/2024 12:51 PM [facility] LAB Creatinine 1.03 0.70 - 1.30 mg/dL LAB CHEMISTRY METHOD 10/07/2024 12:51 PM [facility] LAB eGFR 72 >=60 mL/min/1. 73m2 LAB CHEMISTRY METHOD 10/07/2024 12:51 PM [facility] LAB Comment:Calculation based on the??Chronic Kidney Disease Epidemiology Collaboration (CKD-EPI) equation refit??without adjustment for race. BUN/Creatinine Ratio 30.1 LAB CHEMISTRY METHOD 10/07/2024 12:51 PM [facility] LAB Calcium 8.0(L) 8.5 - 10.5 mg/dL LAB CHEMISTRY METHOD 10/07/2024 12:51 PM [facility] LAB AST (SGOT) 31 10 - 42 unit/L LAB CHEMISTRY METHOD 10/07/2024 12:51 PM [facility] ALT (SGPT) 38 10 - 60 unit/L LAB CHEMISTRY METHOD 10/07/2024 12:51 PM [facility] LAB Alkaline Phosphatase 98 42 - 121 unit/L LAB CHEMISTRY METHOD 10/07/2024 12:51 PM [facility] LAB Total Protein 5.4(L) 6.0 - 8.0 g/dL LAB CHEMISTRY METHOD 10/07/2024 12:51 PM EDT [facility] Albumin 1.4(L) 3.2 - 5.0 g/dL LAB CHEMISTRY METHOD 10/07/2024 12:51 PM EDT [facility] Total Bilirubin 0.3 0.0 - 1.4 mg/dL LAB CHEMISTRY METHOD 10/07/2024 12:51 PM EDT [facility] Blood Venous blood specimen / Unknown Venipuncture / Unknown 10/07/2024 8:53 AM EDT 10/07/2024 10:28 AM EDT us Tabby Bledsoe MD LAB BLOOD ORDERABLES Fin al Result [facility] [address] [place] [address], * (ABNORMAL) Complete blood count (10/07/2024 8:53 AM EDT) WBC 7.3 4.8 - 10.8 K/mcL LAB HEMETOLOGY METHOD 10/07/2024 11:23 AM [facility] LAB RBC 2.80(L) 4.50 - 5.50 M/mcL LAB HEMETOLOGY METHOD 10/07/2024 11:23 AM [facility] LAB Hemoglobin 7.9(L) 13.5 - 17.5 g/dL LAB HEMETOLOGY METHOD 10/07/2024 11:23 AM T [facility] Hematocrit 26.0(L) 42.0 - 54.0 % LAB HEMETOLOGY METHOD 10/07/2024 11:23 AM EDT [facility] LAB MCV 93.2 79.0 - 98.0 FL LAB HEMETOLOGY METHOD 10/07/2024 11:23 AM [facility] LAB MCH 28.3 27.0 - 32.0 pcg LAB HEMETOLOGY METHOD 10/07/2024 11:23 AM EDT [facility] LAB MCHC 30.4(L) 32.0 - 37.0 g/dL LAB HEMETOLOGY METHOD 10/07/2024 11:23 AM EDT [facility] LAB RDW 17.0(H) 11.0 - 15.0 % LAB HEMETOLOGY METHOD 10/07/2024 11:23 AM EDT [facility] LAB Platelets 224 130 - 400 K/mcL LAB HEMETOLOGY METHOD 10/07/2024 11:23 AM EDT [facility] MPV 8.7 7.0 - 11.0 FL LAB HEMETOLOGY METHOD 10/07/2024 11:23 AM EDT [facility] NRBC 0.0 <1.0 % LAB HEMETOLOGY METHOD 10/07/2024 11:23 AM EDT [facility] NRBC Absolute 0.00 <0.10 K/mcL LAB HEMETOLOGY METHOD 10/07/2024 11:23 AM EDT [facility] Blood Venous blood specimen / Unknown Venipuncture / Unknown 10/07/2024 8:53 AM EDT 10/07/2024 10:28 AM EDT us Tabby Bledsoe MD LAB BLOOD ORDERABLES Fin al Result [facility] [address] [place] [address], documented in this encounter Visit Diagnoses Diagnosis Bacteremia documented in this encounter Additional Health Concerns Infection Onset Date Last Indicated Resolved Time ESBL 06/22/2024 06/22/2024 documented as of this encounter Care Teams Property Custodian Relationship Specialty Start Date End Date Uday Sheehan MD [address] [place] [address] Dr Thompson [place] PCP - General Ivf Embryologist 12/19/16 documented as of this encounter
--- OUTSIDE RECORDS SUMMARY | 2024-11-19 18:08 | XMS_ITS | Encounter Summary ---
Author Organization [facility] Address [address] [place] [address] Care Team Providers Care Cardboard Inserter Name Role Phone Uday Sheehan MD Primary Care Provider Encounter Details Date Type Department Care Team (Late st Contact Info) Description 11/07/2024 Lab Requisition [facility] Lab [address] [place] [phone] Erica Charles NP [address] [place] [phone] Anemia, unspecified Social History Tobacco Use Types [...] AM EDT) WBC 6.5 4.8 - 10.8 K/[facility] LAB HEMETOLOGY METHOD 11/07/2024 7:19 AM EDT [facility] RBC 2.50(L) 4.50 - 5.50 M/mcL LAB HEMETOLOGY METHOD 11/07/2024 7:19 AM [facility] LAB Hemoglobin 6.7(L) 13.5 - 17.5 g/dL LAB HEMETOLOGY METHOD 11/07/2024 7:19 AM [facility] LAB Hematocrit 23.3(L) 42.0 - 54.0 % LAB HEMETOLOGY METHOD 11/07/2024 7:19 AM [facility] LAB MCV 94.3 79.0 - 98.0 FL LAB HEMETOLOGY METHOD 11/07/2024 7:19 AM [facility] LAB MCH 27.1 27.0 - 32.0 pcg LAB HEMETOLOGY METHOD 11/07/2024 7:19 AM [facility] LAB MCHC 28.8(L) 32.0 - 37.0 g/dL LAB HEMETOLOGY METHOD 11/07/2024 7:19 AM [facility] LAB RDW 17.5(H) 11.0 - 15.0 % LAB HEMETOLOGY METHOD 11/07/2024 7:19 AM [facility] LAB Platelets 322 130 - 400 K/mcL LAB HEMETOLOGY METHOD 11/07/2024 7:19 AM [facility] LAB MPV 9.6 7.0 - 11.0 FL LAB HEMETOLOGY METHOD 11/07/2024 7:19 AM [facility] LAB NRBC 0.0 <1.0 % LAB HEMETOLOGY METHOD 11/07/2024 7:19 AM [facility] LAB NRBC Absolute 0.00 <0.10 K/mcL LAB HEMETOLOGY METHOD 11/07/2024 7:19 AM [facility] Neutrophils Relative 61.3 % LAB HEMETOLOGY METHOD 11/07/2024 7:19 AM [facility] Lymphocytes Relative 20.3 % LAB HEMETOLOGY METHOD 11/07/2024 7:19 AM [facility] Monocytes Relative 13.3 % LAB HEMETOLOGY METHOD 11/07/2024 7:19 AM [facility] Eosinophils Relative 3.7 % LAB HEMETOLOGY METHOD 11/07/2024 7:19 AM [facility] Basophils Relative 0.3 % LAB HEMETOLOGY METHOD 11/07/2024 7:19 AM [facility] LAB Immature Granulocytes Relative 1.1 % LAB HEMETOLOGY METHOD 11/07/2024 7:19 AM [facility] LAB Neutrophils Absolute 4.01 1.50 - 7.00 K/mcL LAB HEMETOLOGY METHOD 11/07/2024 7:19 AM [facility] Lymphocytes Absolute 1.33 1.00 - 5.00 K/mcL LAB HEMETOLOGY METHOD 11/07/2024 7:19 AM [facility] Monocytes Absolute 0.87 0.20 - 1.00 K/mcL LAB HEMETOLOGY METHOD 11/07/2024 7:19 AM [facility] Eosinophils Absolute 0.24 0.00 - 0.50 K/mcL LAB HEMETOLOGY METHOD 11/07/2024 7:19 AM [facility] Basophils Absolute 0.02 0.00 - 0.20 K/mcL LAB HEMETOLOGY METHOD 11/07/2024 7:19 AM [facility] LAB Immature Granulocytes Absolute 0.07(H) 0.00 - 0.03 K/mcL LAB HEMETOLOGY METHOD 11/07/2024 7:19 AM [facility] LAB Blood Venous blood specimen / Unknown Venipuncture / Unknown 11/07/2024 5:17 AM EDT 11/07/2024 6:39 AM EDT Erica Charles NP LAB BLOOD ORDERABLES Final Resul t LULY MARTINEZ [place] ([facility] LAB [address] [place] [address], documented in this encounter Visit Diagnoses Diagnosis Anemia, unspecified documented in this encounter Additional Health Concerns Infection Onset Date Last Indicated Resolved Time ESBL 06/22/2024 06/22/2024 documented as of this encounter Care Teams Cardboard Inserter Relationship Specialty Start Date End Date Uday Sheehan MD [address] [place] [address] Dr Mast [place] PCP - General Sap Pi Architect 12/19/16 documented as of this encounter
--- OUTSIDE RECORDS SUMMARY | 2024-11-19 18:08 | XMS_ITS | Encounter Summary ---
Author Organization [facility] Address [address] [place] [address] Care Team Providers Care Pv Design And Installation Technician Name Role Phone Uday Sheehan MD Primary Care Provider [phone] Encounter Details Date Type Department Care Team (Late st Contact Info) Description 10/19/2024 Lab Requisition [facility] - Main Lab [address] [facility] [place] [address] Tabby Bledsoe MD [address] [address] Bacteremia Social History Tobacco Use Types Packs/Day [...] documented as of this encounter Care Teams Pv Design And Installation Technician Relationship Specialty Start Date End Date Uday Sheehan MD [address] [place] [address] PCP - General Patent Legal Assistant 12/19/16 documented as of this encounter
--- OUTSIDE RECORDS SUMMARY | 2024-11-19 18:08 | XMS_ITS | Encounter Summary ---
Author Organization [facility] Address [address] [place] [address] Care Team Providers Care Salesperson Neckties Name Role Phone Uday Sheehan MD Primary Care Provider [phone] Encounter Details Date Type Department Care Team (Late st Contact Info) Description 08/28/2024 Lab Requisition [facility] - Main Lab [address] [place] [address] Tabby Bledsoe MD [address] [address] Anemia, unspecified Social History Tobacco Use Types [...] AM EST) WBC 6.4 4.8 - 10.8 K/[facility] LAB HEMETOLOGY METHOD 08/29/2024 11:12 AM EST [facility] LAB RBC 2.50(L) 4.50 - 5.50 M/[facility] LAB HEMETOLOGY METHOD 08/29/2024 11:12 AM EST [facility] LAB Hemoglobin 6.6(L) 13.5 - 17.5 g/dL LAB HEMETOLOGY METHOD 08/29/2024 11:[address] [facility] LAB Hematocrit 22.9(L) 42.0 - 54.0 % LAB HEMETOLOGY METHOD 08/29/2024 11:[address] [facility] LAB MCV 93.5 79.0 - 98.0 FL LAB HEMETOLOGY METHOD 08/29/2024 11:[address] [facility] MCH 26.9(L) 27.0 - 32.0 pcg LAB HEMETOLOGY METHOD 08/29/2024 11:[address] [facility] MCHC 28.8(L) 32.0 - 37.0 g/dL LAB HEMETOLOGY METHOD 08/29/2024 11:[address] [facility] RDW 18.0(H) 11.0 - 15.0 % LAB HEMETOLOGY METHOD 08/29/2024 11:[address] [facility] Platelets 292 130 - 400 K/mcL LAB HEMETOLOGY METHOD 08/29/2024 11:[address] [facility] MPV 9.3 7.0 - 11.0 FL LAB HEMETOLOGY METHOD 08/29/2024 11:[address] [facility] NRBC 0.0 <1.0 % LAB HEMETOLOGY METHOD 08/29/2024 11:[address] [facility] NRBC Absolute 0.00 <0.10 K/mcL LAB HEMETOLOGY METHOD 08/29/2024 11:[address] [facility] Blood Venous blood specimen / Unknown Venipuncture / Unknown 08/29/2024 5:17 AM EST 08/29/2024 10:46 AM EST us Tabby Bledsoe MD LAB BLOOD ORDERABLES Fin al Result [facility] [address] [place] [address], documented in this encounter Visit Diagnoses Diagnosis Anemia, unspecified documented in this encounter Additional Health Concerns Infection Onset Date Last Indicated Resolved Time ESBL 06/22/2024 06/22/2024 documented as of this encounter Care Teams Salesperson Neckties Relationship Specialty Start Date End Date Uday Sheehan MD [address] [place] [address] Dr Mast [place] PCP - General Executive Director Of Nursing 12/19/16 documented as of this encounter
--- OUTSIDE RECORDS SUMMARY | 2024-11-19 18:08 | XMS_ITS | Encounter Summary ---
Author Organization [facility] Address [address] [place] [address] Care Team Providers Care Roll Over Loader Name Role Phone Uday Sheehan Primary Care Provider [phone] Encounter Details Date Type Department Care Team (Late st Contact Info) Description 05/27/2024 Lab Requisition [facility] Lab [address] [place] [address] Salo Whyte MD [address] [place] [address] Acute and chronic respiratory failure with hypoxia; [...] - 10.8 10*3/uL 05/27/2024 10:58 AM EST [facility] RBC 3.05(L) 4.70 - 6.10 10*6/uL 05/27/2024 10:58 AM EST [facility] Hemoglobin 8.4(L) 13.7 - 16.5 g/dL 05/27/2024 10:58 AM EST [facility] Hematocrit 26.6(L) 40.5 - 48.5 % 05/27/2024 10:58 AM EST [facility] MCV 87.2 80.0 - 94.0 fL 05/27/2024 10:58 AM EST [facility] MCH 27.5 26.0 - 34.0 pg 05/27/2024 10:58 AM EST [facility] MCHC 31.6 31.0 - 36.0 g/dL 05/27/2024 10:58 AM EST [facility] RDW 17.0(H) 12.0 - 15.0 % 05/27/2024 10:58 AM EST [facility] RDW Standard Deviation 54.3(H) 35.1 - 43.9 fL 05/27/2024 10:58 AM EST [facility] Platelets 147 140 - 440 10*3/uL 05/27/2024 10:58 AM EST [facility] MPV 10.1 9.4 - 12.4 fL 05/27/2024 10:58 AM EST [facility] Neutrophil % 57.4 50.0 - 75.0 % 05/27/2024 10:58 AM EST [facility] Immature Grans % 0.3 0.0 - 0.9 % 05/27/2024 10:58 AM [facility] Lymphocyte % 23.7 20.0 - 44.0 % 05/27/2024 10:58 AM EST [facility] Monocyte % 12.7 0.0 - 14.0 % 05/27/2024 10:58 AM EST [facility] Eosinophil % 5.6(H) 0.0 - 5.0 % 05/27/2024 10:58 AM EST [facility] Basophil % 0.3 0.0 - 2.0 % 05/27/2024 10:58 AM EST [facility] Neutrophil # 3.51 1.80 - 7.70 10*3/uL 05/27/2024 10:58 AM EST [facility] Immature Grans # <0.03 0.00 - 0.03 10*3/uL 05/27/2024 10:58 AM EST [facility] Lymphocyte # 1.50 1.00 - 4.75 10*3/uL 05/27/2024 10:58 AM EST [facility] Monocyte # 0.80 0.00 - 6.00 10*3/uL 05/27/2024 10:58 AM EST [facility] Eosinophil # 0.30 0.00 - 0.80 10*3/uL 05/27/2024 10:58 AM EST [facility] Basophil # <0.03 0.00 - 0.20 10*3/uL 05/27/2024 10:58 AM EST [facility] nRBC % 0.0 0 - 0 /100 WBCs 05/27/2024 10:58 AM EST [facility] nRBC # <0.01 0.00 - 0.13 10*3/uL 05/27/2024 10:58 AM EST [facility] Blood Structure of peripheral vein / Unknown Venipuncture / Unknown 05/27/2024 10:09 AM EST 05/27/2024 10:10 AM EST us Salo Whyte MD LAB BLOOD ORDERABLES Final Result Performing Organization Address City/State/[facility] Co de Phone Number [facility] [address] [place] [address] [address] [place] [address], [place] [phone] * (ABNORMAL) Comprehensive Metabolic Panel (05/27/2024 10:09 AM EST) NA 142 136 - 145 mmol/L 05/27/2024 11:11 AM EST [facility] K 3.9 3.5 - 5.1 mmol/L 05/27/2024 11:11 AM EST [facility] Cl 104 98 - 109 mmol/L 05/27/2024 11:11 AM EST [facility] CO2 30 22 - 32 mmol/L 05/27/2024 11:11 AM EST [facility] Anion Gap 12 >=0 05/27/2024 11:11 AM EST [facility] Glucose 99 60 - 99 mg/dL 05/27/2024 11:11 AM EST [facility] Creatinine 1.71(H) 0.50 - 1.12 mg/dL 05/27/2024 11:11 AM EST [facility] Calcium 9.4 8.4 - 10.4 mg/dL 05/27/2024 11:11 AM [facility] Total Protein 6.0(L) 6.6 - 8.7 g/dL 05/27/2024 11:11 AM EST [facility] Albumin 2.9(L) 3.5 - 5.0 g/dL 05/27/2024 11:11 AM EST [facility] Bilirubin, Total 0.3 0.2 - 1.2 mg/dL 05/27/2024 11:11 AM EST [facility] Alkaline Phosphatase 113 40 - 129 U/L 05/27/2024 11:11 AM EST [facility] AST 18 0 - 40 U/L 05/27/2024 11:11 AM EST [facility] ALT 12 <=41 U/L 05/27/2024 11:11 AM EST [facility] BUN 41(H) 8 - 23 mg/dL 05/27/2024 11:11 AM EST [facility] eGFR 39(L) >=60 mL/min/1. 73m2 05/27/2024 11:11 AM EST [facility] Comment:The estimated glomer ular [...] - 4.2 g/dL 05/27/2024 11:11 AM EST [facility] A/G Ratio 0.9(L) 1.5 - 3.0 05/27/2024 11:11 AM EST [facility] Blood Structure of peripheral vein / Unknown Venipuncture / Unknown 05/27/2024 10:09 AM EST 05/27/2024 10:10 AM EST Salo Whyte MD LAB BLOOD ORDERABLES Final Result Performing Organization Address City/State/[facility] Co de Phone Number [facility] [address] [facility] [address] [place] [address], documented in this encounter Visit Diagnoses Diagnosis Acute and chronic respiratory failure with hypoxia (HCC) No diagnosis documented in this encounter Additional Health Concerns Infection Onset Date Last Indicated Resolved Time Multidrug resistant organisms MRSA 03/25/20242023 documented as of this encounter Care Teams Roll Over Loader Relationship Specialty Start Date End Date Uday Sheehan [address] [place] [address] [place] [address] PCP - General Internal Medicine 03/27/24 documented as of this encounter
--- OUTSIDE RECORDS SUMMARY | 2024-11-19 18:08 | XMS_ITS | Encounter Summary ---
Author Organization [facility] Address [address] [place] [address] Care Team Providers Care Car Seat Coverer Name Role Phone Uday Sheehan MD Primary Care Provider [phone] Encounter Details Date Type Department Care Team (Late st Contact Info) Description 06/26/[address] [facility] - Main Lab [address] [place] [phone] Natanael Rodney PA [address] [place] [phone] Anemia, unspecified Social History Tobacco Use Types [...] AM EST) WBC 10.2 4.8 - 10.8 K/[facility] LAB HEMETOLOGY METHOD 06/26/2024 1:[address] [facility] RBC 2.70(L) 4.50 - 5.50 M/[facility] LAB HEMETOLOGY METHOD 06/26/2024 1:[address] [facility] Hemoglobin 7.1(L) 13.5 - 17.5 g/dL LAB HEMETOLOGY METHOD 06/26/2024 1:31 PM [facility] Hematocrit 23.9(L) 42.0 - 54.0 % LAB HEMETOLOGY METHOD 06/26/2024 1:31 PM [facility] MCV 88.2 79.0 - 98.0 FL LAB HEMETOLOGY METHOD 06/26/2024 1:31 PM [facility] MCH 26.2(L) 27.0 - 32.0 pcg LAB HEMETOLOGY METHOD 06/26/2024 1:31 PM [facility] MCHC 29.7(L) 32.0 - 37.0 g/dL LAB HEMETOLOGY METHOD 06/26/2024 1:31 PM [facility] RDW 18.0(H) 11.0 - 15.0 % LAB HEMETOLOGY METHOD 06/26/2024 1:31 PM [facility] Platelets 196 130 - 400 K/mcL LAB HEMETOLOGY METHOD 06/26/2024 1:31 PM [facility] MPV 10.2 7.0 - 11.0 FL LAB HEMETOLOGY METHOD 06/26/2024 1:31 PM [facility] NRBC 0.0 <1.0 % LAB HEMETOLOGY METHOD 06/26/2024 1:31 PM [facility] NRBC Absolute 0.00 <0.10 K/mcL LAB HEMETOLOGY METHOD 06/26/2024 1:31 PM [facility] Blood Venous blood specimen / Unknown Venipuncture / Unknown 06/26/2024 5:40 AM EST 06/26/2024 12:19 PM EST us Natanael [facility] LAB BLOOD ORDERABLES Final Re sult [facility] [address] [place] [address], documented in this encounter Visit Diagnoses Diagnosis Anemia, unspecified documented in this encounter Additional Health Concerns Infection Onset Date Last Indicated Resolved Time ESBL 06/22/2024 06/22/2024 documented as of this encounter Care Teams Car Seat Coverer Relationship Specialty Start Date End Date Uday Sheehan MD [address] [place] [address] Dr Donna [place] PCP - General Grief Counsellor 12/19/16 documented as of this encounter
--- OUTSIDE RECORDS SUMMARY | 2024-11-19 18:08 | XMS_ITS | Encounter Summary ---
Author Organization [facility] Address [address] [place] [address] Care Team Providers Care Passenger Agent Name Role Phone Uday Sheehan MD Primary Care Provider [phone] Encounter Details Date Type Department Care Team (Late st Contact Info) Description 10/17/2024 Lab Requisition [facility] - Main Lab [address] [facility] [place] [address] Tabby Bledsoe MD [address] [address] Anemia, unspecified; Chronic kidney disease, unspecified Social [...] (ABNORMAL) C-reactive protein (10/17/2024 7:07 AM EDT) [facility] C-Reactive Protein 13.90(H) <=0.50 mg/dL LAB CHEMISTRY METHOD 10/17/2024 11:48 AM EDT [facility] Blood Venous blood specimen / Unknown Venipuncture / Unknown 10/17/2024 7:07 AM EDT 10/17/2024 10:31 AM EDT Tabby Bledsoe MD LAB BLOOD ORDERABLES Fin al Result Performing Organization Address [facility]/ZIP Co de Phone Number [facility] [address] [place] [address], [place] [phone] * (ABNORMAL) Sedimentation rate (10/17/2024 7:07 AM EDT) [facility] Sed Rate 88(H) 0 - 20 mm/hr LAB HEMETOLOGY METHOD 10/17/2024 11:47 AM EDT [facility] Blood Venous blood specimen / Unknown Venipuncture / Unknown 10/17/2024 7:07 AM EDT 10/17/2024 10:31 AM EDT Tabby Bledsoe MD LAB BLOOD ORDERABLES Fin al Result Performing Organization Address [facility]/ZIP Al de Phone Number [facility] [address] [place] [address], [place] [phone] * (ABNORMAL) Complete blood count (10/17/2024 7:07 AM EDT) [facility] WBC 7.2 4.8 - 10.8 K/mcL LAB HEMETOLOGY METHOD 10/17/2024 11:23 AM EDT [facility] RBC 2.60(L) 4.50 - 5.50 M/mcL LAB HEMETOLOGY METHOD 10/17/2024 11:23 AM EDT [facility] Hemoglobin 7.2(L) 13.5 - 17.5 g/dL LAB HEMETOLOGY METHOD 10/17/2024 11:23 AM [facility] LAB Hematocrit 24.2(L) 42.0 - 54.0 % LAB HEMETOLOGY METHOD 10/17/2024 11:23 AM [facility] LAB MCV 92.4 79.0 - 98.0 FL LAB HEMETOLOGY METHOD 10/17/2024 11:23 AM [facility] MCH 27.5 27.0 - 32.0 pcg LAB HEMETOLOGY METHOD 10/17/2024 11:23 AM [facility] LAB MCHC 29.8(L) 32.0 - 37.0 g/dL LAB HEMETOLOGY METHOD 10/17/2024 11:23 AM [facility] RDW 16.8(H) 11.0 - 15.0 % LAB HEMETOLOGY METHOD 10/17/2024 11:23 AM [facility] Platelets 253 130 - 400 K/mcL LAB HEMETOLOGY METHOD 10/17/2024 11:23 AM [facility] MPV 9.5 7.0 - 11.0 FL LAB HEMETOLOGY METHOD 10/17/2024 11:23 AM [facility] NRBC 0.0 <1.0 % LAB HEMETOLOGY METHOD 10/17/2024 11:23 AM [facility] NRBC Absolute 0.00 <0.10 K/mcL LAB HEMETOLOGY METHOD 10/17/2024 11:23 AM [facility] Blood Venous blood specimen / Unknown Venipuncture / Unknown 10/17/2024 7:07 AM EDT 10/17/2024 10:31 AM EDT us Tabby Bledsoe MD LAB BLOOD ORDERABLES Fin al Result [facility] [address] [place] [address], documented in this encounter Visit Diagnoses Diagnosis Anemia, unspecified Chronic kidney disease, unspecified documented in this encounter Additional Health Concerns Infection Onset Date Last Indicated Resolved Time ESBL 06/22/2024 06/22/2024 documented as of this encounter Care Teams Passenger Agent Relationship Specialty Start Date End Date Uday Sheehan MD [address] [place] [address] Dr AliciayoALEC riggins PCP - General Brisket Puller 12/19/16 documented as of this encounter
--- OUTSIDE RECORDS SUMMARY | 2024-11-19 18:08 | XMS_ITS | Encounter Summary ---
Author Organization [facility] Address [address] [place] [address] Care Team Providers Care Lye Peel Operator Name Role Phone Uday Sheehan Primary Care Provider [phone] Encounter Details Date Type Department Care Team (Late st Contact Info) Description 05/23/2024 Lab Requisition [facility] Lab [address] [place] [address] Lidia Barry, CB [address] [place] [address] Acute and chronic respiratory failure with hypoxia; [...] - 19 mm/Hr 05/23/2024 10:52 AM EST [facility] Blood Structure of peripheral vein / Unknown Venipuncture / Unknown 05/23/2024 9:28 AM EST 05/23/2024 10:40 AM EST [facility] PUBLIC POLICY MEDIATOR LAB BLOOD ORDERABLES Final R esult Performing Organization Address City/State/[facility] Co de Phone Number [facility] [address] [place] [address] [address] [place] [address], [place] [phone] * (ABNORMAL) CBC Auto Differential (05/23/2024 9:28 AM EST) WBC 7.1 4.8 - 10.8 10*3/uL 05/23/2024 10:51 AM EST [facility] RBC 3.05(L) 4.70 - 6.10 10*6/uL 05/23/2024 10:51 AM EST [facility] Hemoglobin 8.5(L) 13.7 - 16.5 g/dL 05/23/2024 10:51 AM EST [facility] Hematocrit 26.6(L) 40.5 - 48.5 % 05/23/2024 10:51 AM EST [facility] MCV 87.2 80.0 - 94.0 fL 05/23/2024 10:51 AM EST [facility] MCH 27.9 26.0 - 34.0 pg 05/23/2024 10:51 AM EST [facility] MCHC 32.0 31.0 - 36.0 g/dL 05/23/2024 10:51 AM [facility] RDW 16.9(H) 12.0 - 15.0 % 05/23/2024 10:51 AM [facility] RDW Standard Deviation 54.4(H) 35.1 - 43.9 fL 05/23/2024 10:51 AM [facility] Platelets 136(L) 140 - 440 10*3/uL 05/23/2024 10:51 AM [facility] MPV 10.1 9.4 - 12.4 fL 05/23/2024 10:51 AM [facility] Neutrophil % 60.6 50.0 - 75.0 % 05/23/2024 10:51 AM [facility] Immature Grans % 0.3 0.0 - 0.9 % 05/23/2024 10:51 AM [facility] Lymphocyte % 21.6 20.0 - 44.0 % 05/23/2024 10:51 AM [facility] Monocyte % 12.6 0.0 - 14.0 % 05/23/2024 10:51 AM [facility] Eosinophil % 4.3 0.0 - 5.0 % 05/23/2024 10:51 AM EST [facility] Basophil % 0.6 0.0 - 2.0 % 05/23/2024 10:51 AM [facility] Neutrophil # 4.33 1.80 - 7.70 10*3/uL 05/23/2024 10:51 AM [facility] Immature Grans # <0.03 0.00 - 0.03 10*3/uL 05/23/2024 10:51 AM [facility] Lymphocyte # 1.50 1.00 - 4.75 10*3/uL 05/23/2024 10:51 AM EST [facility] Monocyte # 0.90 0.00 - 6.00 10*3/uL 05/23/2024 10:51 AM EST [facility] Eosinophil # 0.30 0.00 - 0.80 10*3/uL 05/23/2024 10:51 AM EST [facility] Basophil # <0.03 0.00 - 0.20 10*3/uL 05/23/2024 10:51 AM EST [facility] nRBC % 0.0 0 - 0 /100 WBCs 05/23/2024 10:51 AM EST [facility] nRBC # <0.01 0.00 - 0.13 10*3/uL 05/23/2024 10:51 AM EST [facility] Blood Structure of peripheral vein / Unknown Venipuncture / Unknown 05/23/2024 9:28 AM EST 05/23/2024 10:40 AM EST [facility] LAB BLOOD ORDERABLES Final R esult Performing Organization Address City/[facility]/ZIP Co de Phone Number [facility] [address] [address], [place] [phone] * (ABNORMAL) C-Reactive Protein (05/23/2024 9:28 AM EST) [facility] C Reactive Protein 12.4(H) <=10.0 mg/L 05/23/2024 11:08 AM EST [facility] Blood Structure of peripheral vein / Unknown Venipuncture / Unknown 05/23/2024 9:28 AM EST 05/23/2024 10:40 AM EST [facility] PUBLIC POLICY MEDIATOR LAB BLOOD ORDERABLES Final R [facility] Performing Organization Address City/[facility] Co de Phone Number [facility] [address] [address], [place] [phone] * (ABNORMAL) Comprehensive Metabolic Panel (05/23/2024 9:28 AM EST) Pathologist [facility] NA 142 136 - 145 mmol/L 05/23/2024 11:08 AM [facility] K 3.9 3.5 - 5.1 mmol/L 05/23/2024 11:08 AM [facility] Cl 104 98 - 109 mmol/L 05/23/2024 11:08 AM [facility] CO2 27 22 - 32 mmol/L 05/23/2024 11:08 AM [facility] Anion Gap 15 >=0 05/23/2024 11:08 AM [facility] Glucose 102(H) 60 - 99 mg/dL 05/23/2024 11:08 AM [facility] Creatinine 1.65(H) 0.50 - 1.12 mg/dL 05/23/2024 11:08 AM [facility] Calcium 9.1 8.4 - 10.4 mg/dL 05/23/2024 11:08 AM [facility] Total Protein 6.2(L) 6.6 - 8.7 g/dL 05/23/2024 11:08 AM [facility] Albumin 3.1(L) 3.5 - 5.0 g/dL 05/23/2024 11:08 AM [facility] Bilirubin, Total 0.2 0.2 - 1.2 mg/dL 05/23/2024 11:08 AM [facility] Alkaline Phosphatase 117 40 - 129 U/L 05/23/2024 11:08 AM [facility] AST 23 0 - 40 U/L 05/23/2024 11:08 AM [facility] ALT 14 <=41 U/L 05/23/2024 11:08 AM [facility] BUN 39(H) 8 - 23 mg/dL 05/23/2024 11:08 AM [facility] eGFR 41(L) >=60 mL/min/1. 73m2 05/23/2024 11:08 AM [facility] Comment:The estimated glomer ular filtration [...] - 4.2 g/dL 05/23/2024 11:08 AM EST [facility] A/G Ratio 1.0(L) 1.5 - 3.0 05/23/2024 11:08 AM EST [facility] Blood Structure of peripheral vein / Unknown Venipuncture / Unknown 05/23/2024 9:28 AM EST 05/23/2024 10:40 AM EST [facility] BLOOD ORDERABLES Final R esult Performing Organization Address City/State/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
--- OUTSIDE RECORDS SUMMARY | 2024-11-19 18:08 | XMS_ITS | Encounter Summary ---
Author Organization [facility] Address [address] [place] [address] Phone Care Team Providers Care Television Picture Tube Rebuilder Name Role Phone Uday Sheehan MD Primary Care Provider [phone] Encounter Details Date Type Department Care Team (Late st Contact Info) Description 10/11/2021 Documentation Only [facility], [address] [place] [address] Adi Jaeger MD [address] [place] [place] [address] Social History Tobacco Use Types [...] on filedocumented in this encounter Care Teams Television Picture Tube Rebuilder Relationship Specialty Start Date End Date Uday Sheehan MD [address] [facility] [facility] PCP - General 05/14/19 documented as of this encounter
--- OUTSIDE RECORDS SUMMARY | 2024-11-19 18:08 | XMS_ITS | Encounter Summary ---
Author Organization [facility] Address [address] [place] [address] Care Team Providers Care Health Researcher Name Role Phone Uday Sheehan MD Primary Care Provider Encounter Details Date Type Department Care Team (Late st Contact Info) Description 08/21/2024 Lab Requisition [facility] - Main Lab [address] [place] [address] Tabby Bledsoe MD [address] [address] Anemia, unspecified Social History Tobacco Use Types [...] LAB CHEMISTRY METHOD 08/21/2024 11:26 AM EST [facility] Potassium 3.8 3.5 - 5.5 mmol/L LAB CHEMISTRY METHOD 08/21/2024 11:26 AM [facility] Chloride 109 96 - 110 mmol/L LAB CHEMISTRY METHOD 08/21/2024 11:26 AM [facility] CO2 30 21 - 32 mmol/L LAB CHEMISTRY METHOD 08/21/2024 11:26 AM [facility] Anion Gap 3 3 - 11 LAB CHEMISTRY METHOD 08/21/2024 11:26 AM [facility] Glucose 100 70 - 100 mg/dL LAB CHEMISTRY METHOD 08/21/2024 11:26 AM [facility] BUN 22 5 - 25 mg/dL LAB CHEMISTRY METHOD 08/21/2024 11:26 AM [facility] Creatinine 1.38(H) 0.70 - 1.30 mg/dL LAB CHEMISTRY METHOD 08/21/2024 11:26 AM [facility] eGFR 50(L) >=60 mL/min/1. 73m2 LAB CHEMISTRY METHOD 08/21/2024 11:26 AM [facility] Comment:Calculation based on the??Chronic Kidney Disease Epidemiology Collaboration (CKD-EPI) equation refit??without adjustment for race. BUN/Creatinine Ratio 15.9 LAB CHEMISTRY METHOD 08/21/2024 11:26 AM [facility] Calcium 8.5 8.5 - 10.5 mg/dL LAB CHEMISTRY METHOD 08/21/2024 11:26 AM [facility] Blood Venous blood specimen / Unknown Venipuncture / Unknown 08/21/2024 7:55 AM EST 08/21/2024 10:41 AM EST us Tabby Bledsoe MD LAB BLOOD ORDERABLES Fin al Result [facility] [address] [place] [address], * (ABNORMAL) Complete blood count (08/21/2024 7:55 AM EST) [facility] WBC 6.5 4.8 - 10.8 K/mcL LAB HEMETOLOGY METHOD 08/21/2024 11:00 AM [facility] RBC 2.80(L) 4.50 - 5.50 M/mcL LAB HEMETOLOGY METHOD 08/21/2024 11:00 AM [facility] Hemoglobin 7.6(L) 13.5 - 17.5 g/dL LAB HEMETOLOGY METHOD 08/21/2024 11:00 AM [facility] Hematocrit 26.2(L) 42.0 - 54.0 % LAB HEMETOLOGY METHOD 08/21/2024 11:00 AM [facility] MCV 92.3 79.0 - 98.0 FL LAB HEMETOLOGY METHOD 08/21/2024 11:00 AM [facility] MCH 26.8(L) 27.0 - 32.0 pcg LAB HEMETOLOGY METHOD 08/21/2024 11:00 AM [facility] MCHC 29.0(L) 32.0 - 37.0 g/dL LAB HEMETOLOGY METHOD 08/21/2024 11:00 AM [facility] RDW 18.8(H) 11.0 - 15.0 % LAB HEMETOLOGY METHOD 08/21/2024 11:00 AM [facility] Platelets 277 130 - 400 K/mcL LAB HEMETOLOGY METHOD 08/21/2024 11:00 AM [facility] MPV 9.0 7.0 - 11.0 FL LAB HEMETOLOGY METHOD 08/21/2024 11:00 AM [facility] NRBC 0.0 <1.0 % LAB HEMETOLOGY METHOD 08/21/2024 11:00 AM [facility] NRBC Absolute 0.00 <0.10 K/mcL LAB HEMETOLOGY METHOD 08/21/2024 11:00 AM EST [facility] Blood Venous blood specimen / Unknown Venipuncture / Unknown 08/21/2024 7:55 AM EST 08/21/2024 10:41 AM EST us Tabby Bledsoe MD LAB BLOOD ORDERABLES Fin al Result [facility] [address] [place] [address], documented in this encounter Visit Diagnoses Diagnosis Anemia, unspecified documented in this encounter Additional Health Concerns Infection Onset Date Last Indicated Resolved Time ESBL 06/22/2024 06/22/2024 documented as of this encounter Care Teams Health Researcher Relationship Specialty Start Date End Date Uday Sheehan MD [address] [place] [address] Dr [place] PCP - General Supervisor Photostat 12/19/16 documented as of this encounter
--- OUTSIDE RECORDS SUMMARY | 2024-11-19 18:08 | XMS_ITS | Encounter Summary ---
Author Organization [facility] Address [address] [place] [address] Care Team Providers Care Plug Machine Operator Name Role Phone Uday Sheehan MD Primary Care Provider [phone] Encounter Details Date Type Department Care Team (Late st Contact Info) Description 10/18/2024 Lab Requisition [facility] Lab [address] [facility] [place] [address] Tabby Bledsoe MD [address] [facility] [address] [place] [address] Osteomyelitis, unspecified (CMS/HCC V24, CMS/HCC V28) Social [...] (ABNORMAL) Sedimentation rate (10/18/2024 7:01 AM EDT) [facility] Sed Rate 58(H) 0 - 20 mm/hr LAB HEMETOLOGY METHOD 10/18/2024 10:16 AM EDT [facility] Blood Venous blood specimen / Unknown Venipuncture / Unknown 10/18/2024 7:01 AM EDT 10/18/2024 9:11 AM EDT Tabby Bledsoe MD LAB BLOOD ORDERABLES Fin al Result Performing Organization Address City/[facility]/ZIP Co de Phone Number [facility] [address] [place] [address], [place] [phone] * (ABNORMAL) C-reactive protein (10/18/2024 7:01 AM EDT) [facility] C-Reactive Protein 13.40(H) <=0.50 mg/dL LAB CHEMISTRY METHOD 10/18/2024 10:08 AM EDT [facility] Blood Venous blood specimen / Unknown Venipuncture / Unknown 10/18/2024 7:01 AM EDT 10/18/2024 9:11 AM EDT Tabby Bledsoe MD LAB BLOOD ORDERABLES Fin al Result Performing Organization Address City/[facility]/ZIP Co de Phone Number [facility] [address] [place] [address], [place] [phone] * (ABNORMAL) Complete blood count (10/18/2024 7:01 AM EDT) [facility] WBC 6.6 4.8 - 10.8 K/[facility] LAB HEMETOLOGY METHOD 10/18/2024 9:51 AM EDT [facility] RBC 2.40(L) 4.50 - 5.50 M/[facility] LAB HEMETOLOGY METHOD 10/18/2024 9:51 AM [facility] Hemoglobin 6.7(L) 13.5 - 17.5 g/dL LAB HEMETOLOGY METHOD 10/18/2024 9:51 AM [facility] Hematocrit 22.8(L) 42.0 - 54.0 % LAB HEMETOLOGY METHOD 10/18/2024 9:51 AM [facility] MCV 93.4 79.0 - 98.0 FL LAB HEMETOLOGY METHOD 10/18/2024 9:51 AM [facility] MCH 27.5 27.0 - 32.0 pcg LAB HEMETOLOGY METHOD 10/18/2024 9:51 AM [facility] MCHC 29.4(L) 32.0 - 37.0 g/dL LAB HEMETOLOGY METHOD 10/18/2024 9:51 AM [facility] RDW 16.7(H) 11.0 - 15.0 % LAB HEMETOLOGY METHOD 10/18/2024 9:51 AM [facility] Platelets 259 130 - 400 K/mcL LAB HEMETOLOGY METHOD 10/18/2024 9:51 AM [facility] MPV 9.2 7.0 - 11.0 FL LAB HEMETOLOGY METHOD 10/18/2024 9:51 AM [facility] NRBC 0.0 <1.0 % LAB HEMETOLOGY METHOD 10/18/2024 9:51 AM [facility] NRBC Absolute 0.00 <0.10 K/mcL LAB HEMETOLOGY METHOD 10/18/2024 9:51 AM [facility] Blood Venous blood specimen / Unknown Venipuncture / Unknown 10/18/2024 7:01 AM EDT 10/18/2024 9:11 AM EDT Tabby Bledsoe MD LAB BLOOD ORDERABLES Fin al Result [facility] [address] [place] [address], documented in this encounter Visit Diagnoses Diagnosis Osteomyelitis, unspecified (CMS/HCC V24, CMS/HCC V28) documented in this encounter Additional Health Concerns Infection Onset Date Last Indicated Resolved Time ESBL 06/22/2024 06/22/2024 documented as of this encounter Care Teams Plug Machine Operator Relationship Specialty Start Date End Date Uday Sheehan MD [address] [place] [address] Dr Donna [place] PCP - General Process Development Manager 12/19/16 documented as of this encounter
--- OUTSIDE RECORDS SUMMARY | 2024-11-19 18:08 | XMS_ITS | Clinical Summary ---
Author Organization [facility] Address [address] [place] [address] Care Team Providers Care Senior Grants Officer Name Role Phone Uday Sheehan Primary Care Provider [phone] Allergies No known active allergies Medications acetaminophen [...] by mouth every 12 hours. 04/08/20 Active [id number] (VIDHYA WITH COLLAGEN) 7-7-1.5 gram powder in [...] WBC of 7.4. - [facility] ([facility] endoscopic [facility]st[facility]) status [...] PM EDT): Patient has a history of OJSSELIN. Hgb stable this admission ~8.5 since transfer [...] consolidation LLL. O2 increased to 50% per DRYING MACHINE OPERATOR: plugging secretions but not clogged [...] consolidation LLL. O2 increased to 50% per DRYING MACHINE OPERATOR: plugging secretions but not clogged [...] complete this topic Procedures * Due to [place] state law, [...] to Health Maintenance Results * Due to [place] state law, [...] - 15.0 % 05/27/2024 10:58 AM EST [facility] RDW Standard Deviation 54.3(H) 35.1 - 43.9 fL 05/27/2024 10:58 AM EST [facility] Platelets 147 140 - 440 10*3/uL 05/27/2024 10:58 AM EST [facility] MPV 10.1 9.4 - 12.4 fL 05/27/2024 10:58 AM EST [facility] Neutrophil % 57.4 50.0 - 75.0 % 05/27/2024 10:58 AM EST [facility] Immature Grans % 0.3 0.0 - 0.9 % 05/27/2024 10:58 AM EST [facility] Lymphocyte % 23.7 20.0 - 44.0 % 05/27/2024 10:58 AM EST [facility] Monocyte % 12.7 0.0 - 14.0 % 05/27/2024 10:58 AM EST [facility] Eosinophil % 5.6(H) 0.0 - 5.0 % 05/27/2024 10:58 AM EST [facility] Basophil % 0.3 0.0 - 2.0 % 05/27/2024 10:58 AM EST [facility] Neutrophil # 3.51 1.80 - 7.70 10*3/uL 05/27/2024 10:58 AM EST [facility] Immature Grans # <0.03 0.00 - 0.03 10*3/uL 05/27/2024 10:58 AM EST [facility] Lymphocyte # 1.50 1.00 - 4.75 10*3/uL 05/27/2024 10:58 AM EST [facility] Monocyte # 0.80 0.00 - 6.00 10*3/uL 05/27/2024 10:58 AM EST [facility] Eosinophil # 0.30 0.00 - 0.80 10*3/uL 05/27/2024 10:58 AM EST [facility] Basophil # <0.03 0.00 - [...] BLOOD ORDERABLES Final Result Performing Organization Address City/State/[facility] Co de Phone Number [facility] [address] [place] [address], [place] [phone] * (ABNORMAL) Comprehensive Metabolic Panel (05/27/2024 10:09 AM EST) NA 142 136 - 145 mmol/L 05/27/2024 11:11 AM EST [facility] K 3.9 3.5 - 5.1 mmol/L 05/27/2024 11:11 AM EST [facility] Cl 104 98 - 109 mmol/L 05/27/2024 11:11 AM EST [facility] CO2 30 22 - 32 mmol/L 05/27/2024 11:11 AM [facility] Anion Gap 12 >=0 05/27/2024 11:11 AM [facility] Glucose 99 60 - 99 mg/dL 05/27/2024 11:11 AM [facility] Creatinine 1.71(H) 0.50 - 1.12 mg/dL 05/27/2024 11:11 AM [facility] Calcium 9.4 8.4 - 10.4 mg/dL 05/27/2024 11:11 AM [facility] Total Protein 6.0(L) 6.6 - 8.7 g/dL 05/27/2024 11:11 AM [facility] Albumin 2.9(L) 3.5 - 5.0 g/dL 05/27/2024 11:11 AM [facility] Bilirubin, Total 0.3 0.2 - 1.2 mg/dL 05/27/2024 11:11 AM [facility] Alkaline Phosphatase 113 40 - 129 U/L 05/27/2024 11:11 AM [facility] AST 18 0 - 40 U/L 05/27/2024 11:11 AM [facility] ALT 12 <=41 U/L 05/27/2024 11:11 AM [facility] BUN 41(H) 8 - 23 mg/dL 05/27/2024 11:11 AM [facility] eGFR 39(L) >=60 mL/min/1. 73m2 [...] Final Result [facility] [address] [address], * Phosphorus (04/08/2024 5:21 AM EDT) Phosphorus 4.2 2.5 - 4.5 mg/dL 04/08/2024 5:46 AM EDT [facility] Blood Structure of peripheral vein / Unknown Venipuncture / Unknown 04/08/2024 5:21 AM EDT 04/08/2024 5:24 AM EDT us Jori Longo NP LAB BLOOD ORDERABLES Fi nal Result [facility] [address] [place] [address], from Last 3 Months or Most Recently Relevant to Health Maintenance Additional Health Concerns Infection Onset Date Last Indicated Multidrug resistant organisms MRSA 03/25/2024 05/07/2024 Insurance [facility] MEDIC[facility] Advance Directives Documents on File Type Date Recorded Patient Pattern Cleaner Expl anation Health Care Proxy 03/31/2024 10:53 [...] [place] Daughter Next of Kin Care Teams Senior Grants Officer Relationship Specialty Start Date End Date Uday Sheehan [address] [place] [address] [place] [address] PCP - General Internal Medicine 03/27/24
--- OUTSIDE RECORDS SUMMARY | 2024-11-19 18:08 | XMS_ITS | Referral Summary ---
Author Organization [facility] Address [address] [place] [address] Care Team Providers Care Underwear Cutter Name Role Phone Uday Sheehan Primary Care Provider [phone] Allergies No known active allergies Medications acetaminophen [...] by mouth every 12 hours. 04/08/20 Active hhyod-[id number]-IpEPS-c alsot-nu-yex (VIDHYA WITH COLLAGEN) 7-7-1.5 gram powder in [...] WBC of 7.4. - [facility] PEG (percutaneous endoscopic gastrostomy) [...] consolidation LLL. O2 increased to 50% per CORK GRINDER: plugging secretions but not clogged at [...] consolidation LLL. O2 increased to 50% per CORK GRINDER: plugging secretions but not clogged at [...] Not on file Procedures * Due to [facility] law, this organization might not [...] Health Maintenance Results * Due to [place] [employer] law, this organization might not be sharing negative HIV tests. * (ABNORMAL) CBC Auto Differential (05/27/2024 10:09 AM EST) WBC 6.1 4.8 - 10.8 10*3/uL 05/27/2024 10:58 AM EST [facility] RBC 3.05(L) 4.70 - 6.10 10*6/uL 05/27/2024 10:58 AM EST [facility] Hemoglobin 8.4(L) 13.7 - 16.5 g/dL 05/27/2024 10:58 AM EST [facility] Hematocrit 26.6(L) 40.5 - 48.5 % 05/27/2024 10:58 AM EST [facility] MCV 87.2 80.0 - 94.0 fL 05/27/2024 10:58 AM EST [facility] MCH 27.5 26.0 - 34.0 pg 05/27/2024 10:58 AM EST [facility] MCHC 31.6 31.0 - 36.0 g/dL 05/27/2024 10:58 AM EST [facility] RDW 17.0(H) 12.0 - 15.0 % 05/27/2024 10:58 AM [facility] RDW Standard Deviation 54.3(H) 35.1 - 43.9 fL 05/27/2024 10:58 AM [facility] Platelets 147 140 - 440 10*3/uL 05/27/2024 10:58 AM [facility] MPV 10.1 9.4 - 12.4 fL 05/27/2024 10:58 AM [facility] Neutrophil % 57.4 50.0 - 75.0 % 05/27/2024 10:58 AM [facility] Immature Grans % 0.3 0.0 - 0.9 % 05/27/2024 10:58 AM [facility] Lymphocyte % 23.7 20.0 - 44.0 % 05/27/2024 10:58 AM [facility] Monocyte % 12.7 0.0 - 14.0 % 05/27/2024 10:58 AM [facility] Eosinophil % 5.6(H) 0.0 - 5.0 % 05/27/2024 10:58 AM [facility] Basophil % 0.3 0.0 - 2.0 % 05/27/2024 10:58 AM [facility] Neutrophil # 3.51 1.80 - 7.70 10*3/uL 05/27/2024 10:58 AM [facility] Immature Grans # <0.03 0.00 - 0.03 10*3/uL 05/27/2024 10:58 AM [facility] Lymphocyte # 1.50 1.00 - 4.75 10*3/uL 05/27/2024 10:58 AM [facility] Monocyte # 0.80 0.00 - 6.00 10*3/uL 05/27/2024 10:58 AM [facility] Eosinophil # 0.30 0.00 - 0.80 10*3/uL 05/27/2024 10:58 AM [facility] Basophil # <0.03 0.00 - 0.20 10*3/uL 05/27/2024 10:58 AM EST [facility] nRBC % 0.0 0 - 0 /100 WBCs 05/27/2024 10:58 AM EST [facility] nRBC # <0.01 0.00 - 0.13 10*3/uL 05/27/2024 10:58 AM EST [facility] Blood Structure of peripheral vein / Unknown Venipuncture / Unknown 05/27/2024 10:09 AM EST 05/27/2024 10:10 AM EST us Salo Whyte MD LAB BLOOD ORDERABLES Final Result [facility] [address] [facility] [address] [place] [address], [place] [phone] * (ABNORMAL) Comprehensive Metabolic Panel (05/27/2024 10:09 AM EST) NA 142 136 - 145 mmol/L 05/27/2024 11:11 AM EST [facility] K 3.9 3.5 - 5.1 mmol/L 05/27/2024 11:11 AM EST [facility] Cl 104 98 - 109 mmol/L 05/27/2024 11:11 AM EST [facility] CO2 30 22 - 32 mmol/L 05/27/2024 11:11 AM EST [facility] Anion Gap 12 >=0 05/27/2024 11:11 AM EST [facility] Glucose 99 60 - 99 mg/dL 05/27/2024 11:11 AM EST [facility] Creatinine 1.71(H) 0.50 - 1.12 mg/dL 05/27/2024 11:11 AM EST [facility] Calcium 9.4 8.4 - 10.4 mg/dL 05/27/2024 11:11 AM EST [facility] Total Protein 6.0(L) 6.6 - 8.7 g/dL 05/27/2024 11:11 AM EST [facility] Albumin 2.9(L) 3.5 - 5.0 g/dL 05/27/2024 11:11 AM EST [facility] Bilirubin, Total 0.3 0.2 - 1.2 mg/dL 05/27/2024 11:11 AM EST [facility] Alkaline Phosphatase 113 40 - 129 U/L 05/27/2024 11:11 AM EST [facility] AST 18 0 - 40 U/L 05/27/2024 11:11 AM EST [facility] ALT 12 <=41 U/L 05/27/2024 11:11 AM EST [facility] BUN 41(H) 8 - 23 mg/dL 05/27/2024 11:11 AM EST [facility] eGFR 39(L) >=60 mL/min/1. 73m2 05/27/2024 11:11 AM EST [facility] Comment:The estimated glomer ular filtration [...] - 4.2 g/dL 05/27/2024 11:11 AM EST [facility] A/G Ratio 0.9(L) 1.5 - 3.0 05/27/2024 11:11 AM EST [facility] Blood Structure of peripheral vein / Unknown Venipuncture / Unknown 05/27/2024 10:09 AM EST 05/27/2024 10:10 AM EST us Salo Whyte MD LAB BLOOD ORDERABLES Final Result [facility] [address] [facility] [address] [place] [address], * Phosphorus (04/08/2024 5:21 AM EDT) Phosphorus 4.2 2.5 - 4.5 mg/dL 04/08/2024 5:46 AM EDT [facility] Blood Structure of peripheral vein / Unknown Venipuncture / Unknown 04/08/2024 5:21 AM EDT 04/08/2024 5:24 AM EDT Jori Longo NP LAB BLOOD ORDERABLES Fi nal Result [facility] [address] [place] [address], from Last 3 Months or Most Recently Relevant to Health Maintenance Additional Health Concerns Infection Onset Date Last Indicated 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
--- OUTSIDE RECORDS SUMMARY | 2024-11-19 18:08 | XMS_ITS | Encounter Summary ---
Author Organization [facility] Address [address] [place] [address] Care Team Providers Care Brake Liner Name Role Phone Uday Sheehan Primary Care Provider [phone] Encounter Details Date Type Department Care Team (Late st Contact Info) Description 05/20/2024 Lab Requisition [facility] [address] [place] [address] Salo Whyte MD [address] [place] [address] Acute and chronic respiratory failure with hypoxia; [...] this encounter Procedures * Due to [place] state law, this organization might not be sharing negative HIV tests. Procedure Name Priority Date/Time Associated Diagnosis Comments CBC AUTO DIFFERENTIAL Routine 05/20/2024 10:25 AM EST Acute and chronic respiratory failure with hypoxia (HCC) No diagnosis COMPREHENSIVE METABOLIC PANEL Routine 05/20/2024 10:25 AM EST Acute and chronic respiratory failure with hypoxia (HCC) No diagnosis documented in this encounter Results * Due to [place] state law, this organization might not be sharing negative HIV tests. * (ABNORMAL) CBC Auto Differential (05/20/2024 10:25 AM EST) WBC 5.4 4.8 - 10.8 10*3/uL 05/20/2024 10:48 AM EST [facility] RBC 3.05(L) 4.70 - 6.10 10*6/uL 05/20/2024 10:48 AM EST [facility] Hemoglobin 8.3(L) 13.7 - 16.5 g/dL 05/20/2024 10:48 AM EST [facility] Hematocrit 26.4(L) 40.5 - 48.5 % 05/20/2024 10:48 AM EST [facility] MCV 86.6 80.0 - 94.0 fL 05/20/2024 10:48 AM EST [facility] MCH 27.2 26.0 - 34.0 pg 05/20/2024 10:48 AM EST [facility] MCHC 31.4 31.0 - 36.0 g/dL 05/20/2024 10:48 AM EST [facility] RDW 16.9(H) 12.0 - 15.0 % 05/20/2024 10:48 AM EST [facility] RDW Standard Deviation 53.1(H) 35.1 - 43.9 fL 05/20/2024 10:48 AM EST [facility] Platelets 141 140 - 440 10*3/uL 05/20/2024 10:48 AM EST [facility] MPV 10.0 9.4 - 12.4 fL 05/20/2024 10:48 AM EST [facility] Neutrophil % 50.4 50.0 - 75.0 % 05/20/2024 10:48 AM EST [facility] Immature Grans % 0.2 0.0 - 0.9 % 05/20/2024 10:48 AM EST [facility] Lymphocyte % 29.8 20.0 - 44.0 % 05/20/2024 10:48 AM EST [facility] Monocyte % 13.1 0.0 - 14.0 % 05/20/2024 10:48 AM EST [facility] Eosinophil % 5.9(H) 0.0 - 5.0 % 05/20/2024 10:48 AM EST [facility] Basophil % 0.6 0.0 - 2.0 % 05/20/2024 10:48 AM EST [facility] Neutrophil # 2.74 1.80 - 7.70 10*3/uL 05/20/2024 10:48 AM EST [facility] Immature Grans # <0.03 0.00 - 0.03 10*3/uL 05/20/2024 10:48 AM EST [facility] Lymphocyte # 1.60 1.00 - 4.75 10*3/uL 05/20/2024 10:48 AM EST [facility] Monocyte # 0.70 0.00 - 6.00 10*3/uL 05/20/2024 10:48 AM EST [facility] Eosinophil # 0.30 0.00 - 0.80 10*3/uL 05/20/2024 10:48 AM EST [facility] Basophil # <0.03 0.00 - 0.20 10*3/uL 05/20/2024 10:48 AM EST [facility] nRBC % 0.0 0 - 0 /100 WBCs 05/20/2024 10:48 AM EST [facility] nRBC # <0.01 0.00 - 0.13 10*3/uL 05/20/2024 10:48 AM EST [facility] Blood Structure of peripheral vein / Unknown Venipuncture / Unknown 05/20/2024 10:25 AM EST 05/20/2024 10:25 AM EST us Salo Whyte MD LAB BLOOD ORDERABLES Final Result Performing Organization Address City/State/[facility] Co de Phone Number [facility] [address] [place] [address] [address] [place] [address], [place] [phone] * (ABNORMAL) Comprehensive Metabolic Panel (05/20/2024 10:25 AM EST) NA 141 136 - 145 mmol/L 05/20/2024 11:11 AM EST [facility] K 3.7 3.5 - 5.1 mmol/L 05/20/2024 11:11 AM EST [facility] Cl 102 98 - 109 mmol/L 05/20/2024 11:11 AM EST [facility] CO2 27 22 - 32 mmol/L 05/20/2024 11:11 AM EST [facility] Anion Gap 16 >=0 05/20/2024 11:11 AM EST [facility] Glucose 91 60 - 99 mg/dL 05/20/2024 11:11 AM EST [facility] Creatinine 1.68(H) 0.50 - 1.12 mg/dL 05/20/2024 11:11 AM EST [facility] Calcium 9.4 8.4 - 10.4 mg/dL 05/20/2024 11:11 AM EST [facility] Total Protein 6.4(L) 6.6 - 8.7 g/dL 05/20/2024 11:11 AM EST [facility] Albumin 3.1(L) 3.5 - 5.0 g/dL 05/20/2024 11:11 AM EST [facility] Bilirubin, Total 0.2 0.2 - 1.2 mg/dL 05/20/2024 11:11 AM EST [facility] Alkaline Phosphatase 102 40 - 129 U/L 05/20/2024 11:11 AM EST [facility] AST 23 0 - 40 U/L 05/20/2024 11:11 AM EST [facility] ALT 17 <=41 U/L 05/20/2024 11:11 AM EST [facility] BUN 35(H) 8 - 23 mg/dL 05/20/2024 11:11 AM EST [facility] eGFR 40(L) >=60 mL/min/1. 73m2 05/20/2024 11:11 AM EST [facility] Comment:The estimated glomer ular [...] - 4.2 g/dL 05/20/2024 11:11 AM EST [facility] A/G Ratio 0.9(L) 1.5 - 3.0 05/20/2024 11:11 AM EST [facility] Blood Structure of peripheral vein / Unknown Venipuncture / Unknown 05/20/2024 10:25 AM EST 05/20/2024 10:25 AM EST Salo Whyte MD LAB BLOOD ORDERABLES Final Result Performing Organization Address City/State/[facility] Co de Phone Number [facility] [address] [facility] [address] [place] [address], documented in this encounter Visit Diagnoses Diagnosis Acute and chronic respiratory failure with hypoxia (HCC) No diagnosis documented in this encounter Additional Health Concerns Infection Onset Date Last Indicated Resolved Time Multidrug resistant organisms MRSA 03/25/20242023 documented as of this encounter Care Teams Brake Liner Relationship Specialty Start Date End Date Uday Sheehan [address] [place] [address] [place] [id number] PCP - General Internal Medicine 03/27/24 documented as of this encounter
--- OUTSIDE RECORDS SUMMARY | 2024-11-19 18:08 | XMS_ITS ---
Author Organization [facility] Care Team Providers Care Auxiliary Operator Name Role Phone Edda De Luna [...] Umaña Unavailable Unavailable Angela, Jagruti Unavailable Unavailable Bemidji, Merlyn Unavailable Unavailable Shanda Merlyn Unavailable Unavailable Zepke, Annie Unavailable Unavailable Heuser, Natalie Unavailable Unavailable Grippin, Megan Unavailable Unavailable Marisol, Meg Unavailable Unavailable Melvin Meg Unavailable Unavailable Planeta, Helena Unavailable Unavailable Dhaval, Maya Unavailable Unavailable Anjelica, Paty Unavailable Unavailable Shirokaja, [...] Address Phone Organization Dates Tabby Bledsoe PCP [address] [address], [place], [address], [facility] (Office): : [facility] 09/17/2024 - present Edda De Luna [address] [place] [address], [address], [facility] (Office): : [phone] [facility] 09/17/2024 - [place], [address], [facility] (Office): : [facility] 09/17/2024 - present Natanael ZHU [place], [facility] 09/17/2024 - present Radha Babin [place] (Office): : [facility] 09/17/2024 - present Joana Tatum [address] [place] [address], [place] [address], [facility] (Office): : [facility] 09/17/2024 - present Esme Samuels [address] [place] [address], [address], [facility] (Office): [phone] (Fax): [phone] [facility] 09/17/2024 - present Janethfranchesca Guy [address] [facility] [address], [place], [address], [facility] (Office): : [facility] 09/17/2024 - present Lidia Barry [address] [facility] [address], [place], [address], [place] (Office): : [phone] [facility] 09/17/2024 - present Neisha Avendaño [facility] [address], [address], [facility] (Office): [facility] 09/17/2024 - present Yanet Block [address] [facility] [address], [place], [address], [place] (Office): : [facility] 09/17/2024 - present Raquel Olvera [address] [facility] [address], [place], [address], [place] (Office): : [phone] [facility] 09/17/2024 - present Yeimy Byrne NP [address] [facility] [address] [address], [facility] (Office): [facility] 09/17/2024 - present Jagruti Miller [address] [place], [address], [place] (Office): : [phone] [facility] 09/17/2024 - present Merlyn Locke [address] [facility] [address], [place], [address], [facility] (Office): : [facility] 09/17/2024 - present Merlyn Land [place], [facility] 09/17/2024 - present Annie Lombardi [place], [facility] 09/17/2024 - present Natalie Forman [address] [facility] [address], [place], [address], [place] (Office): [phone] (Fax): [phone] [facility] 09/17/2024 - present Megan Tafoya [address] [facility], [place], [address], [place] (Office): : [phone] [facility] 09/17/2024 - present Meg Damon [address] [facility] [address], [place], [address], [place] (Office): : [phone] [facility] 09/17/2024 - present Meg Charles [address] [facility] [address], [place], [address], [place]Office[place] : [phone] [facility] 09/17/2024 - present Helena ORDAZ [place], [place], [place] (Office[place] : [facility] 09/17/2024 - present Maya Puentes [address] [facility] [address], [place], [address], [place] (Office): [phone] (Fax): [facility] 09/17/2024 - present Paty Dejesus [address] [facility] [address], [place], [address], [place] (Office): [phone] (Fax): [phone] [facility] 09/17/2024 - present Keely Lee [facility] 09/17/2024 - present Anita Daniels [address] [facility] [address], [place], [address], [facility] (Office): : [phone] [facility] 09/17/2024 - present Yin Boone [address] [facility] [address], [place], [address], [facility] (Office): : [facility] 09/17/2024 - present Erica Charles [address] [facility] [address], [place], [address], [facility] (Office): [facility] 09/17/2024 - present Brady Nance [facility] 09/17/2024 - present Shahana Kang [address] [place] [address], [address], [facility] (Office): [phone] [facility] 09/17/2024 - present Goals Section Description Status Target Date Ramon's Pressure ulcer kristen l show signs of healing and remain free from infection by/through review date. Active 04/23/2025 Rmaon has stated preferenc e for self-directed activities [...] Ramon's [facility] Active 04/23/2025 Ramon's insertion site kristen [...] Code Name Recorded Time Value Entered By Chair/fms-vh-fqyiz transfer 11/19/2024 Dependent vlopez Eating 11/19/2024 Independent vlopez Lower body dressing 11/19/2024 Dependent vlopez Lying to sitting on side of bed 11/19/2024 Dependent vlopez Oral hygiene 11/19/2024 Dependent vlopez Personal hygiene 11/19/2024 Dependent vlopez Roll left and right 11/19/2024 Dependent vlopez Shower/bathe self 11/19/2024 Dependent vlopez Sit to lying 11/19/2024 Dependent vlopez Sit to stand 11/19/2024 Dependent vlopez Toilet transfer 11/19/2024 Dependent vlopez Toileting hygiene 11/19/2024 Dependent vlopez Upper body dressing 11/19/2024 Dependent vlopez Wheel 150 feet 11/19/2024 Dependent vlopez Wheel 50 feet with two turns 11/19/2024 Not assessed vlopez Immunizations Immunization Status Vaccine Details Vaccine Code CodeSystem Date Notes Influenza-High Dose(Flublok) completed created date: 07/23/2024 administered date: 04/08/2024 Medications Section Medication Name Status Code CodeSystem Dose Route Frequency Admin Type Sig Text Start Date End Date Lactobacillus Oral Tablet active 647661 5 RXNORM 1 tablet Oral two times a day Routine Give 1 tablet by mouth two times a day for abx use 2024 - Fluticasone Propionate Nasal Suspension 50 MCG/ACT active 697414 7 RXNORM 2 spray Nasal in the morning Routine 2 spray in both nostri ls in the mornin g for allerg ies 2024 - Gabapentin Oral Tablet 100 MG aborted 546249 RXNORM 100 mg Oral two times a day Routine Give 100 mg by mouth two times a day for pain 11/07 Pantoprazole Sodium Oral Tablet Delayed Release 40 MG aborted 611830 RXNORM 40 mg Oral two times a day Routine Give 40 mg by mouth two times a day for GERD 11/02 Thiamine HCl Oral Tablet active 100 mg Oral one time a day Routine Give 100 mg by mouth one time a day for vitami n 2024 - Milk of Magnesia Suspension 400 MG/5ML active 142183 RXNORM 30 ml Oral as needed PRN Give 30 ml by mouth as needed for Consti pation (Step 1) As needed if no bowel moveme nt for three days. (Do not use for Hemodi alysis patien ts). 2024 - Acetaminophen Tablet 325 MG active 325949 RXNORM 2 tablet Oral as needed PRN [...] 3 grams / 24 hours. 2024 - 449558 RXNORM 2 tablet Oral as needed PRN [...] 2024 - Bisacodyl Suppository 10 MG active 773914 RXNORM 1 suppos itory Rectal as needed PRN Insert 1 suppos itory rectal ly as needed for If no bowel moveme nt for 8 hours after Milk of Magnes ia 2024 - Amoxicillin Oral Tablet 875 MG aborted 295976 RXNORM 1 tablet Oral two times a day Routine Give 1 tablet by mouth two times a day for osteom yeliti s 11/02 Vashe Cleansing External Solution aborted n/a n/a Topical one time a day Routine Apply to wound topica lly one time a day for wounds 11/04 Miconazole Nitrate External Cream 2 % active 831823 RXNORM n/a n/a Topical every 12 hours [...] Doxycycline Hyclate Oral Tablet 100 MG aborted 963680 3 RXNORM 1 tablet Oral every 12 [...] Glycol 3350 Oral Powder 17 GM/SCOOP active 394049 RXNORM 17 gram Oral in the morning Routine Give 17 gram by mouth in the mornin g for Consti pation 2024 - Melatonin Oral Capsule 10 MG active 549837 RXNORM 10 mg Oral at bedtime Routine Give 10 mg by mouth at bedtim e relate d to OBSTRU CTIVE SLEEP APNEA (ADULT ) (PEDIA TRIC) (G47.3 3) 2024 - traZODone HCl Oral Tablet 50 MG aborted 270780 RXNORM 50 mg Oral in the evening Routine Give 50 mg by mouth in the evenin g for anxiet y relate d to OTHER ABNORM ALITIE S OF GAIT AND MOBILI TY (R26.8 9) 11/10 traMADol HCl Oral Tablet 100 MG aborted 186060 5 RXNORM 100 mg Oral as needed PRN Give 100 mg by mouth every 6 hours as needed for pain and healin g relate d to 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[facility], SITE UNSPEC IFIED (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 0) 11/10 Amoxicillin Oral Tablet 875 MG aborted 557074 RXNORM 1 tablet Oral two times a day Routine Give 1 tablet by mouth two times a day for osteom yeliti s until 2024 08:59 11/02 Amoxicillin Oral Tablet 875 MG aborted 076293 RXNORM 1 tablet Oral two times a day Routine Give 1 tablet by mouth two times a day for osteom yeliti s until 2024 08:59 11/19 Zofran Oral Tablet 4 MG active 226060 RXNORM 4 mg Oral as needed PRN Give 4 mg by mouth every 8 hours as needed for nausea relate d to PRESSU RE ULCER OF SACRAL REGION , STAGE 4 (L89.1 54) 2024 - Docusate Sodium Oral Capsule 100 MG aborted 719004 5 RXNORM 100 mg Oral two times a day Routine Give 100 mg by mouth two times a day for Consti pation 11/02 Heparin Sodium (Porcine) Injection Solution aborted 5000 unit Subcuta neous three times a day Routine Inject 5000 unit subcut aneous ly three times a day for Prophy laxis relate d to 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[facility] RA, SITE UNSPEC IFIED (M46.2 0) 11/10 Levothyroxine Sodium Oral Tablet aborted 0.1 mg Oral one time a day Routine Give 0.1 mg by mouth one time a day relate d to HYPOTH YROIDI SM, 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 ) 11/10 Santyl External Ointment 250 UNIT/GM active 699402 7 RXNORM n/a n/a Topical every day shift Routine Apply to Right heel topica lly every day shift for Wound To right heel; cleans e with normal saline , apply Santyl , apply calciu m algina te, wrap with kerlix daily. 2024 - Doxycycline Hyclate Oral Tablet 100 MG aborted 637920 3 RXNORM 1 tablet Oral every 12 hours Routine Give 1 tablet by mouth every 12 hours relate d to 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[place], SITE UNSPEC IFIED (M46.2 0) until 2024 23:59 11/19 Docusate Sodium Oral Capsule 100 MG active 885824 5 RXNORM 200 mg Oral as needed [...] - traZODone HCl Oral Tablet 50 MG complete d 703031 RXNORM 25 mg Oral as needed PRN Give 25 mg by mouth every 12 hours as needed for Depres kathy for 2 Weeks 11/16 Pantoprazole Sodium Oral Tablet Delayed Release 40 MG aborted 795453 RXNORM 40 mg Oral two times a day Routine Give 40 mg by mouth two times a day for GERD until 2024 23:59 11/10 Albuterol Sulfate Nebulization Solution (2.5 MG/3ML) 0.083% complete d 164494 RXNORM 3 ml Inhalat ion every 6 hours Routine 3 ml inhale orally via nebuli zer every 6 hours for Cough, wheeze for 5 Days 11/08 Vashe Cleansing External Solution aborted n/a n/a Topical every day shift Routine Apply to wound topica lly every day shift for wounds 11/10 Gabapentin Oral Tablet 100 MG active 469490 RXNORM 2 tablet Oral two times a day Routine JUSTINA* * Give 2 tablet by mouth two times a day for Pain take 2 tablet s two times daily 2024 - traZODone HCl Oral Tablet 50 MG active 336912 RXNORM 50 mg Oral in the evening [...] Diphenoxylate -Atropine Oral Liquid 2.5-0.025 MG/5ML aborted 802255 8 RXNORM 5 ml Oral one time [...] Oral Tablet Delayed Release 40 MG active 111802 RXNORM 40 mg Oral two times a day Routine Give 40 mg by mouth two times a day for GERD until 2024 23:59 12/07 Finasteride Oral Tablet 5 MG active 011347 RXNORM 5 mg Oral one time a day Routine Give 5 mg by mouth one time a day relate d to RETENT ION OF URINE, UNSPEC IFIED (R33.9 ) 2024 - Doxazosin Mesylate Oral Tablet 2 MG active 727233 RXNORM 2 mg Oral at bedtime Routine Give 2 mg by mouth at bedtim e relate d to RETENT ION OF URINE, UNSPEC IFIED (R33.9 ) hold for SBP <90 2024 - Lomotil Oral Tablet 2.5-0.025 MG aborted 815202 1 RXNORM 1 tablet Oral one time a day Routine Give 1 tablet by mouth one time a day for Diarrh ea hold for consti pation 11/18 Atorvastatin Calcium Oral Tablet 40 MG active 990376 RXNORM 40 mg Oral one time a day Routine Give 40 mg by mouth one time a day relate d to HYPERL IPIDEM IA, UNSPEC IFIED (E78.5 ) 2024 - Amiodarone HCl Oral Tablet 200 MG active 849602 RXNORM 200 mg Oral one time a day Routine Give 200 mg by mouth one time a day relate d to 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 ) 2024 - traMADol HCl Oral Tablet 100 MG active 916142 5 RXNORM 100 mg Oral as needed PRN Give 100 mg by mouth every 6 hours as needed for pain and healin g relate d to 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[facility], SITE UNSPEC IFIED (M46.2 0) 2024 - Zinc Sulfate Oral Tablet 220 (50 Zn) MG complete d 186896 RXNORM 220 mg Oral one time a day Routine Give 220 mg by mouth one time a day for vitami n until 2024 23:59 11/17 Lomotil Oral Tablet 2.5-0.025 MG active 963428 1 RXNORM 1 tablet Oral as needed PRN Give 1 tablet by mouth every 6 hours as needed for Diarrh ea 2024 - Amoxicillin Oral Tablet 875 MG active 480372 RXNORM 1 tablet Oral two times a day Routine Give 1 tablet by mouth two times a day for osteom yeliti s until 2024 08:59 11/30 Doxycycline Hyclate Oral Tablet 100 MG active 665279 3 RXNORM 1 tablet Oral every 12 hours Routine Give 1 tablet by mouth every 12 hours relate d to 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[facility], SITE UNSPEC IFIED (M46.2 0) until 2024 23:59 11/23 Melatonin Oral Tablet 10 MG aborted 058071 6 RXNORM 10 mg Oral as needed PRN Give 10 mg by mouth every 24 hours as needed for insomn ia 10/29 traZODone HCl Oral Tablet 50 MG aborted 795392 RXNORM 25 mg Oral in the afternoon Routine Give 25 mg by mouth in the aftern oon for anxiet y AND Give 25 mg by mouth every 12 hours as needed for anxiet y/rest lessne ss 10/29 697726 RXNORM 25 mg Oral as needed PRN [...] Atorvastatin Calcium Oral Tablet 40 MG aborted 419310 RXNORM 40 mg Oral one time a day Routine Give 40 mg by mouth one time a day for choles terol contro l 10/29 Ascorbic Acid Oral Tablet 500 MG aborted 352804 RXNORM 500 mg Oral two times a day Routine Give 500 mg by mouth two times a day for vit 10/29 Nystatin External Powder 903671 UNIT/GM aborted 665863 RXNORM n/a n/a Topical every day and evening shift Routine Apply to groin topica lly every day and evenin g shift for fungal rash 10/29 Doxazosin Mesylate Oral Tablet 2 MG aborted 307677 RXNORM 4 mg Oral at bedtime Routine Give 4 mg by mouth at bedtim e for BPH 10/29 Famotidine Oral Tablet 20 MG aborted 206544 RXNORM 20 mg Oral at bedtime Routine Give 20 mg by mouth at bedtim e for GERD 10/29 Milk of Magnesia Suspension 400 MG/5ML aborted 709848 RXNORM 30 ml Oral as needed PRN Give 30 ml by mouth as needed for Consti pation (Step 1) As needed if no bowel moveme nt for three days. (Do not use for Hemodi alysis patien ts). 10/29 Polyvinyl Alcohol Ophthalmic Solution 1.4 % aborted 265404 RXNORM 1 drop Ophthal marcelo as needed PRN Instil l 1 drop in both eyes every 6 hours as needed for dry eyes 10/29 Zofran Oral Tablet 4 MG aborted 821089 RXNORM 4 mg Oral as needed PRN [...] Oral Tablet Delayed Release 40 MG aborted 707174 RXNORM 40 mg Oral two times a day Routine Give 40 mg by mouth two times a day for GERD 10/29 Miconazole Nitrate External Ointment 2 % aborted 761572 RXNORM n/a n/a Topical every day and evening shift Routine Apply to coccyx topica lly every day and evenin g shift for rash 10/29 Fleet Enema Enema 7-19 GM/118ML aborted 040071 RXNORM 1 dose Rectal as needed PRN Insert 1 dose rectal ly as needed for Consti pation (Step 3) as needed if no bowel moveme nt for 8 hours after bisaco dyl suppos itory. 10/29 Acetaminophen Tablet 325 MG aborted 440106 RXNORM 2 tablet Oral as needed PRN [...] exceed 3 grams / 24 hours. 10/29 133249 RXNORM 2 tablet Oral as needed PRN [...] hours. 10/29 Bisacodyl Suppository 10 MG aborted 536268 RXNORM 1 suppos itory Rectal as needed PRN Insert 1 suppos itory rectal ly as needed for If no bowel moveme nt for 8 hours after Milk of Magnes ia 10/29 Multivitamin Oral Tablet aborted 1 tablet Oral one time a day Routine Give 1 tablet by mouth one time a day for supple ment 10/29 MiraLax Oral Powder 17 GM/SCOOP aborted 543335 RXNORM 1 scoop Oral one time a day Routine Give 1 scoop by mouth one time a day for consti pation 10/29 Amiodarone HCl Oral Tablet 200 MG aborted 667833 RXNORM 1 tablet Oral one time a day Routine Give 1 tablet by mouth one time a day for A Fib 10/29 Ferrous Sulfate Oral Tablet 325 (65 Fe) MG aborted 395594 RXNORM 325 mg Oral two times a day Routine Give 325 mg by mouth two times a day for iron 10/29 Finasteride Oral Tablet 5 MG aborted 610646 RXNORM 5 mg Oral one time a day Routine Give 5 mg by mouth one time a day for BPH 10/29 Aspirin Oral Tablet aborted 81 mg Oral one time a day Routine Give 81 mg by mouth one time a day for heart health 10/29 Thiamine Mononitrate Oral Tablet 100 MG aborted 024197 RXNORM 100 mg Oral one time a day Routine Give 100 mg by mouth one time a day for supple ment 10/29 Fluticasone Propionate Nasal Suspension 50 MCG/ACT aborted 627339 7 RXNORM 2 spray Nasal one time a day Routine 2 spray in both nostri ls one time a day for allerg ies 10/29 Colace Oral Capsule 100 MG aborted 120483 6 RXNORM 100 mg Oral two times a day Routine Give 100 mg by mouth two times a day for consti pation 10/29 Plavix Oral Tablet 75 MG aborted 193761 RXNORM 75 mg Oral one time a day Routine Give 75 mg by mouth one time a day for antico agulat ion 10/29 Lactobacillus Oral Tablet aborted 377457 5 RXNORM 1 capsul e Oral two times a day Routine Give 1 capsul e by mouth two times a day for probio tic 10/29 traMADol HCl Oral Tablet 100 MG aborted 303061 5 RXNORM 100 mg Oral as needed PRN Give 100 mg by mouth every 6 hours as needed for modera te/sev ere pain 10/29 Santyl External Ointment 250 UNIT/GM aborted 263391 7 RXNORM n/a n/a Topical every day shift Routine Apply to Right heel topica lly every day shift for Wound To right heel; cleans e with normal saline , apply Santyl , apply calciu m algina te, wrap with kerlix daily. 10/29 Sodium Hypochlorite External Solution 0.25 % aborted 264753 RXNORM n/a n/a Topical every day and [...] with dry clean dressi ng daily. 10/29 853838 RXNORM n/a n/a Topical as needed PRN [...] with dry clean dressi ng daily. 10/29 Atorvastatin Calcium Oral Tablet 40 MG aborted 363819 RXNORM 40 mg Oral one time a day Routine Give 40 mg by mouth one time a day relate d to HYPERL IPIDEM IA, UNSPEC IFIED (E78.5 ) 11/10 Vitamin C Oral Tablet active 500 mg Oral two times a day Routine Give 500 mg by mouth two times a day for wound healin g 2024 - Fleet Enema Enema 7-19 GM/118ML active 328697 RXNORM 1 dose Rectal as needed PRN [...] - Famotidine Oral Tablet 20 MG active 793929 RXNORM 20 mg Oral at bedtime Routine Give 20 mg by mouth at bedtim e for GERD 2024 - Amiodarone HCl Oral Tablet 200 MG aborted 549300 RXNORM 200 mg Oral one time a day Routine Give 200 mg by mouth one time a day relate d to 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 ) 11/10 Doxazosin Mesylate Oral Tablet 2 MG aborted 203858 RXNORM 2 mg Oral at bedtime Routine Give 2 mg by mouth at bedtim e relate d to RETENT ION OF URINE, UNSPEC IFIED (R33.9 ) 11/10 Finasteride Oral Tablet 5 MG aborted 847857 RXNORM 5 mg Oral one time a day Routine Give 5 mg by mouth one time a day relate d to RETENT ION OF URINE, UNSPEC IFIED (R33.9 ) 11/10 Doxycycline Hyclate Oral Tablet 100 MG aborted 482086 3 RXNORM 1 tablet Oral every 12 hours Routine Give 1 tablet by mouth every 12 hours relate d to 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[place], SITE UNSPEC IFIED (M46.2 0) 11/02 Zinc Sulfate Oral Tablet 220 (50 Zn) MG aborted 620991 RXNORM 220 mg Oral one time a day Routine Give 220 mg by mouth one time a day for vitami n 11/14 Mental Status Section Date Assessment Total Score Description 10/19/2024 CAM 0 No delirium ind icated 10/10/2024 BIMS 13 cognitively int act CAM 0 No delirium ind icated PHQ-9 01 minimal depress ion Problems Problem # Description Date of onset Resolved Date Code CodeSystem Concern Status 1 [address] active 2 ABNORMAL POSTURE [address] active 3 MUSCLE WEAKNESS (GENERALIZED) [address] active 4 OTHER ABNORMALITIES OF GAIT AND MOBILITY [address] active 5 OSTEOMYELITIS OF [place], SITE UNSPECIFIED [address] active 6 CELLULITIS OF BUTTOCK 025 09/18/[address] completed 7 ENCOUNTER FOR ADJUSTMENT AND MANAGEMENT OF VASCULAR ACCESS DEVICE 025 09/18/[address] completed 8 EXTENDED SPECTRUM BETA LACTAMASE (ESBL) RESISTANCE 025 09/18/[address] completed 9 IRON DEFICIENCY ANEMIA SECONDARY TO BLOOD LOSS (CHRONIC) 025 09/18/[address] completed 10 KLEBSIELLA PNEUMONIAE [K. 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[place], SACRAL AND SACROCOCCYGEAL REGION 025 09/18/2024166049822 SNOMED CT completed 13 OTHER ABNORMALITIES OF GAIT AND MOBILITY 025 09/18/[address] completed 14 PRESSURE ULCER OF LEFT ANKLE, UNSTAGEABLE [address] active 15 PRESSURE ULCER OF OTHER SITE, UNSTAGEABLE [address] active 16 PRESSURE-INDUCED DEEP TISSUE DAMAGE OF LEFT HEEL [address] active 17 PRESSURE-INDUCED DEEP TISSUE DAMAGE OF RIGHT HEEL [address] active 18 RETENTION OF URINE, UNSPECIFIED [address] active 19 URINARY TRACT INFECTION, SITE NOT SPECIFIED [address] active 20 ANEMIA, UNSPECIFIED [address] active 21 ATHEROSCLEROTIC HEART DISEASE OF [place] CORONARY ARTERY WITH UNSPECIFIED ANGINA PECTORIS [address] active 22 NONRHEUMATIC AORTIC (VALVE) STENOSIS [address] active 23 ESSENTIAL (PRIMARY) HYPERTENSION [address] active 24 MUSCLE WEAKNESS (GENERALIZED) 025 09/04/[address] completed 25 MUSCLE WEAKNESS (GENERALIZED) 025 09/18/[address] completed 26 OTHER ABNORMALITIES OF GAIT AND MOBILITY 025 09/04/[address] completed 27 OTHER ENCEPHALOPATHY 025 09/04/[address] completed 28 PRESSURE ULCER OF LEFT ANKLE, STAGE 1 025 09/04/[address] completed 29 PRESSURE ULCER OF RIGHT ANKLE, UNSTAGEABLE [address] active 30 PRESSURE ULCER OF RIGHT HEEL, UNSTAGEABLE [address] active 31 PRESSURE ULCER OF SACRAL REGION, STAGE 4 [address] active 32 UNSPECIFIED LACK OF COORDINATION [address] active 33 URINARY TRACT INFECTION, SITE NOT SPECIFIED 025 09/04/[address] completed 34 PERSONAL HISTORY OF OTHER MENTAL AND BEHAVIORAL DISORDERS 025 07/23/[address] completed 35 ACUTE ON CHRONIC COMBINED SYSTOLIC (CONGESTIVE) AND DIASTOLIC (CONGESTIVE) HEART FAILURE [address] active 36 BACTEREMIA 025 08/19/[address] completed 37 CHRONIC KIDNEY DISEASE, STAGE [address] UNSPECIFIED [address] active 38 CHRONIC SYSTOLIC (CONGESTIVE) HEART FAILURE [id number] active 39 DYSPHAGIA, OROPHARYNGEAL PHASE [address] active 40 ENCOUNTER FOR FITTING AND ADJUSTMENT OF URINARY DEVICE [address] active 41 ESSENTIAL (PRIMARY) HYPERTENSION 025 07/11/[address] completed 42 EXTENDED SPECTRUM BETA LACTAMASE (ESBL) RESISTANCE 025 08/19/[address] completed 43 GASTRO-ESOPHAGEAL REFLUX DISEASE WITHOUT ESOPHAGITIS [address] active 44 GASTROSTOMY STATUS [address] active 45 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 025 09/04/[address] completed 46 HYPERLIPIDEMIA, UNSPECIFIED [address] active 47 HYPERTENSIVE CHRONIC KIDNEY DISEASE WITH STAGE 1 THROUGH STAGE 4 CHRONIC KIDNEY DISEASE, OR UNSPECIFIED CHRONIC KIDNEY DISEASE [id number] active 48 HYPOTHYROIDISM, UNSPECIFIED [address] active 49 MUSCLE WEAKNESS (GENERALIZED) 025 08/19/[address] completed 50 OBSTRUCTIVE SLEEP APNEA (ADULT) (PEDIATRIC) [address] active 51 OTHER ABNORMALITIES OF GAIT AND MOBILITY 025 08/19/[address] completed 52 OTHER ESCHERICHIA COLI [E. COLI] THE CAUSE OF DISEASES CLASSIFIED ELSEWHERE 025 08/19/[address] completed 53 OTHER HYDRONEPHROSIS 025 08/19/[address] completed 54 PAROXYSMAL ATRIAL FIBRILLATION [address] active 55 PERSONAL HISTORY OF OTHER MENTAL AND BEHAVIORAL DISORDERS 13916855 SNOMED CT active 56 PRESENCE OF UROGENITAL IMPLANTS 025 07/23/[address] completed 57 PRESSURE ULCER OF SACRAL REGION, STAGE 3 025 08/19/[id number] completed 58 UNSPECIFIED ATRIAL FIBRILLATION 025 07/11/[address] completed 59 UNSPECIFIED DEMENTIA, UNSPECIFIED SEVERITY, WITHOUT BEHAVIORAL DISTURBANCE, PSYCHOTIC DISTURBANCE, MOOD DISTURBANCE, AND ANXIETY 40457933 SNOMED CT active 60 UNSPECIFIED ESCHERICHIA COLI [E. COLI] THE CAUSE OF DISEASES CLASSIFIED ELSEWHERE 025 08/19/[address] completed 61 UNSPECIFIED LACK OF COORDINATION 025 08/19/[address] completed 62 URINARY TRACT INFECTION, SITE NOT SPECIFIED 025 08/19/[address] completed Reason for Referral No Reasons for Referral Entered Social History Social History Observation Description Start Date End Date Code Code System Current Smoking Status Tobacco smoking consumption unknown 364909114 SNOMED CT Sex Assigned At Male 1940 94744-3 [facility] Gender Identity Vital Signs Code Code System Vitals Name Values and Units Timing Information 9279-1 [facility] Respiratory Rate Value=17.0 Units=/m in 11/19/2024 79975-1 [facility] O2 % BldC Oximetry Value=95.0 Units= % 11/19/2024 20959-9 [facility] Pain Level Value=0.0 11/19/2024 8462-4 [facility] Blood Pressure-Diastolic Value=40 Un its=mmHg 11/18/2024 8480-6 [facility] Blood Pressure-Systolic Saqaj=521 Un its=mmHg 11/18/2024 8310-5 [facility] Body Temperature Value=97.7 Units=?? F 11/18/2024 8867-4 [facility] Heart rate Value=65.0 Units=/min 06/2025 39318-4 [facility] Weight Xbmzr=694.6 Units=Lbs 8302-2 [facility] Height Value=68.0 Units=Inches 09/04/2024 2339-0 [facility] Blood Sugar Wupfw=652.0 Units=mg/dL 08/11/2024
--- OUTSIDE RECORDS SUMMARY | 2024-11-19 18:08 | XMS_ITS | Encounter Summary ---
Author Organization [facility] Address [address] [place] [address] Phone Care Team Providers Care Earring Maker Name Role Phone Uday Sehehan MD Primary Care Provider [phone] Encounter Details Date Type Department Care Team (Late st Contact Info) Description 04/11/2022 Documentation Only [facility] [address] [place] [address] Adi Jaeger MD [address] [place] [address] [place] [address] Social History Tobacco Use Types [...] on filedocumented in this encounter Care Teams Earring Maker Relationship Specialty Start Date End Date Uday Sheehan MD [address] [place] [address] [address] A[place] R[place] PCP - General 05/14/19 documented as of this encounter
--- OUTSIDE RECORDS SUMMARY | 2024-11-19 18:08 | XMS_ITS | Clinical Summary ---
Author Organization [address] Address [address] [place] [address] Phone Care Team Providers Care Systems Trainer Name Role Phone Uday Sheehan MD Primary Care Provider [phone] Encounters Date Type Department Care Team Description 11/17/2024 Lab Requisition [facility] Lab [address] [place] [address] Tabby Bledsoe MD Bacteremia 11/14/2024 Lab Requisition [facility] Lab [address] [place] [address] Tabby Bledsoe MD Anemia, unspecified 11/12/2024 Lab Requisition [facility] Lab [address] [place] [address] Tabby Bledsoe MD Anemia, unspecified 11/09/2024 Lab Requisition [facility] Lab [address] [place] [address] Tabby Bledsoe MD Bacteremia 11/07/2024 Lab Requisition [facility] Lab [address] [place] [address] Erica Charles NP Anemia, unspecified 11/01/2024 Lab Requisition [facility] Lab [address] [place] [address] Tabby Bledsoe MD Bacteremia 10/27/2024 Lab Requisition [facility] Lab [address] [place] [address] Tabby Bledsoe MD Bacteremia 10/19/2024 Lab Requisition [facility] Main Lab [address] [place] [address] Tabby Bledsoe MD Bacteremia 10/18/2024 Lab Requisition [facility] Main Lab [address] [place] [address] Tabby Bledsoe MD Osteomyelitis, unspecified ([facility] V24, [facility] V28) 10/17/2024 Lab Requisition [facility] Lab [address] [place] [address] Tabby Bledsoe MD Anemia, unspecified; Chronic kidney disease, unspecified 10/12/2024 Lab Requisition [facility] Lab [address] [place] [address] Tabby Bledsoe MD Bacteremia 10/06/2024 Lab Requisition [facility] Lab [address] [place] [address] Tabby Bledsoe MD Bacteremia 10/03/2024 Lab Requisition [facility] Main Lab [address] [place] [address] Tabby Bledsoe MD Anemia, unspecified 09/28/2024 Lab Requisition [facility] Main Lab [address] [place] [address] Tabby Bledsoe MD Bacteremia 09/25/2024 Lab Requisition [facility] Lab [address] [place] [address] Tabby Bledsoe MD Chronic kidney disease, unspecified 09/20/2024 Lab Requisition [facility] Lab [address] [place] [address] Tabby Bledsoe MD Bacteremia 09/18/2024 Lab Requisition [facility] Main Lab [address] [place] [address] Tabby Bledsoe MD Anemia, unspecified; Other disorders of electrolyte and fluid balance, not elsewhere classified 09/15/2024 Lab Requisition [facility] Lab [address] [place] [address] Tabby Bledsoe MD Bacteremia 09/08/2024 Lab Requisition [facility] Lab [address] [place] [address] Tabby Bledsoe MD Bacteremia; Osteomyelitis, unspecified ([facility] V24, [facility] V28) 09/05/2024 Lab Requisition [facility] Lab [address] [place] [address] Tabby Bledsoe MD Osteomyelitis, unspecified ([facility] V24, [facility] V28); Extended spectrum beta lactamase (ESBL) resistance 09/04/2024 Lab Requisition [facility] Lab [address] [place] [address] Tabby Bledsoe MD Sequelae of unspecified nutritional deficiency; Encounter for therapeutic drug level monitoring 08/31/2024 Lab Requisition [facility] Lab [address] [place] [phone] Tabby Bledsoe MD Bacteremia 08/28/2024 Lab Requisition [facility] Lab [address] [place] [address] Tabby Bledsoe MD Anemia, unspecified 08/24/2024 Lab Requisition [facility] Lab [address] [place] [address] Tabby Bledsoe MD Bacteremia; Heart failure, unspecified ([facility] V24, [facility] V28); Pressure ulcer of unspecified site, unspecified stage from Last 3 Months Social History Tobacco [...] 11/09/2021, 04/05/2021 Hypertension/CHF/CAD Annual BMP Blood Test 11/18/2025 11/18/2024, 11/11/2024, 11/04/2024, Additional history exists Influenza Vaccine Completed 04/08/2024 [...] Associated Diagnosis Comments COMPREHENSIVE METABOLIC PANEL Routine 11/18/2024 11:10 AM EDT Bacteremia COMPLETE BLOOD COUNT Routine 11/18/2024 11:10 AM EDT Bacteremia COMPLETE BLOOD COUNT Routine 11/14/2024 6:10 AM [...] lactamase (ESBL) resistance VANCOMYCIN, RANDOM Routine 09/04/2024 7 :02 AM EST Sequelae of unspecified nutritional deficiency [...] Pressure ulcer of unspecified site, unspecified stage from Last 3 Months Results * (ABNORMAL) Complete blood count (11/18/2024 11:10 AM EDT) Only the most recent of17 resultswithin the time period is included. [facility] Signature WBC 6.3 4.8 - 10.8 K/[facility] LAB HEMETOLOGY METHOD 11/18/2024 2:05 PM EDT [facility] RBC 2.70(L) 4.50 - 5.50 M/mcL LAB HEMETOLOGY METHOD 11/18/2024 2:05 PM [facility] LAB Hemoglobin 7.2(L) 13.5 - 17.5 g/dL LAB HEMETOLOGY METHOD 11/18/2024 2:05 PM [facility] LAB Hematocrit 24.5(L) 42.0 - 54.0 % LAB HEMETOLOGY METHOD 11/18/2024 2:05 PM [facility] LAB MCV 90.7 79.0 - 98.0 FL LAB HEMETOLOGY METHOD 11/18/2024 2:05 PM [facility] LAB MCH 26.7(L) 27.0 - 32.0 pcg LAB HEMETOLOGY METHOD 11/18/2024 2:05 PM [facility] LAB MCHC 29.4(L) 32.0 - 37.0 g/dL LAB HEMETOLOGY METHOD 11/18/2024 2:05 PM [facility] LAB RDW 17.8(H) 11.0 - 15.0 % LAB HEMETOLOGY METHOD 11/18/2024 2:05 PM [facility] LAB Platelets 217 130 - 400 K/mcL LAB HEMETOLOGY METHOD 11/18/2024 2:05 PM [facility] LAB MPV 9.3 7.0 - 11.0 FL LAB HEMETOLOGY METHOD 11/18/2024 2:05 PM [facility] LAB NRBC 0.0 <1.0 % LAB HEMETOLOGY METHOD 11/18/2024 2:05 PM [facility] LAB NRBC Absolute 0.00 <0.10 K/mcL LAB HEMETOLOGY METHOD 11/18/2024 2:05 PM [facility] Blood Venous blood specimen / Unknown Venipuncture / Unknown 11/18/2024 11:10 AM EDT 11/18/2024 11:58 AM EDT us Tabby Bledsoe MD LAB BLOOD ORDERABLES Fin al Result [facility] [address] [place] [address], [place] [phone] * (ABNORMAL) Comprehensive metabolic panel (11/18/2024 11:10 AM EDT) Only the most recent of10 resultswithin the time period is included. Sodium 140 133 - 145 mmol/L LAB CHEMISTRY METHOD 11/18/2024 1:33 PM [facility] Potassium 3.9 3.5 - 5.5 mmol/L LAB CHEMISTRY METHOD 11/18/2024 1:33 PM [facility] Chloride 106 96 - 110 mmol/L LAB CHEMISTRY METHOD 11/18/2024 1:33 PM [facility] CO2 30 21 - 32 mmol/L LAB CHEMISTRY METHOD 11/18/2024 1:33 PM [facility] Anion Gap 4 3 - 11 LAB CHEMISTRY METHOD 11/18/2024 1:33 PM [facility] Glucose 125(H) 70 - 100 mg/dL LAB CHEMISTRY METHOD 11/18/2024 1:33 PM [facility] BUN 39(H) 5 - 25 mg/dL LAB CHEMISTRY METHOD 11/18/2024 1:33 PM [facility] LAB Creatinine 1.15 0.70 - 1.30 mg/dL LAB CHEMISTRY METHOD 11/18/2024 1:33 PM [facility] LAB eGFR 63 >=60 mL/min/1. 73m2 LAB CHEMISTRY METHOD 11/18/2024 1:33 PM [facility] LAB Comment:Calculation based on the Chronic Kidney Disease Epidemiology Collaboration (CKD-EPI) equation refit without adjustment for race. BUN/Creatinine Ratio 33.9 LAB CHEMISTRY METHOD 11/18/2024 1:33 PM T [facility] LAB Calcium 7.7(L) 8.5 - 10.5 mg/dL LAB CHEMISTRY METHOD 11/18/2024 1:33 PM [facility] LAB AST (SGOT) 41 10 - 42 unit/L LAB CHEMISTRY METHOD 11/18/2024 1:33 PM [facility] LAB ALT (SGPT) 42 10 - 60 unit/L LAB CHEMISTRY METHOD 11/18/2024 1:33 PM [facility] LAB Alkaline Phosphatase 131(H) 42 - 121 unit/L LAB CHEMISTRY METHOD 11/18/2024 1:33 PM [facility] Total Protein 5.7(L) 6.0 - 8.0 g/dL LAB CHEMISTRY METHOD 11/18/2024 1:33 PM [facility] Albumin 1.4(L) 3.2 - 5.0 g/dL LAB CHEMISTRY METHOD 11/18/2024 1:33 PM [facility] Total Bilirubin 0.3 0.0 - 1.4 mg/dL LAB CHEMISTRY METHOD 11/18/2024 1:33 PM [facility] LAB Blood Venous blood specimen / Unknown Venipuncture / Unknown 11/18/2024 11:10 AM EDT 11/18/2024 11:58 AM EDT us Tabby Bledsoe MD LAB BLOOD ORDERABLES Fin al Result [facility] [address] [place] [address], * (ABNORMAL) CBC auto differential (11/07/2024 5:17 AM EDT) WBC 6.5 4.8 - 10.8 K/[facility] LAB HEMETOLOGY METHOD 11/07/2024 7:19 AM EDT [facility] RBC 2.50(L) 4.50 - 5.50 M/mcL LAB HEMETOLOGY METHOD 11/07/2024 7:19 AM [facility] Hemoglobin 6.7(L) 13.5 - 17.5 g/dL LAB HEMETOLOGY METHOD 11/07/2024 7:19 AM [facility] LAB Hematocrit 23.3(L) 42.0 - 54.0 % LAB HEMETOLOGY METHOD 11/07/2024 7:19 AM [facility] LAB MCV 94.3 79.0 - 98.0 FL LAB HEMETOLOGY METHOD 11/07/2024 7:19 AM [facility] LAB MCH 27.1 27.0 - 32.0 pcg LAB HEMETOLOGY METHOD 11/07/2024 7:19 AM [facility] MCHC 28.8(L) 32.0 - 37.0 g/dL LAB HEMETOLOGY METHOD 11/07/2024 7:19 AM [facility] LAB RDW 17.5(H) 11.0 - 15.0 % LAB HEMETOLOGY METHOD 11/07/2024 7:19 AM [facility] LAB Platelets 322 130 - 400 K/mcL LAB HEMETOLOGY METHOD 11/07/2024 7:19 AM [facility] LAB MPV 9.6 7.0 - 11.0 FL LAB HEMETOLOGY METHOD 11/07/2024 7:19 AM [facility] NRBC 0.0 <1.0 % LAB HEMETOLOGY METHOD 11/07/2024 7:19 AM [facility] NRBC Absolute 0.00 <0.10 K/mcL LAB HEMETOLOGY METHOD 11/07/2024 7:19 AM [facility] Neutrophils Relative 61.3 % LAB HEMETOLOGY METHOD 11/07/2024 7:19 AM [facility] Lymphocytes Relative 20.3 % LAB HEMETOLOGY METHOD 11/07/2024 7:19 AM [facility] Monocytes Relative 13.3 % LAB HEMETOLOGY METHOD 11/07/2024 7:19 AM [facility] Eosinophils Relative 3.7 % LAB HEMETOLOGY METHOD 11/07/2024 7:19 AM [facility] Basophils Relative 0.3 % LAB HEMETOLOGY METHOD 11/07/2024 7:19 AM [facility] Immature Granulocytes Relative 1.1 % LAB HEMETOLOGY METHOD 11/07/2024 7:19 AM [facility] Neutrophils Absolute 4.01 1.50 - 7.00 K/mcL LAB HEMETOLOGY METHOD 11/07/2024 7:19 AM [facility] Lymphocytes Absolute 1.33 1.00 - 5.00 K/mcL LAB HEMETOLOGY METHOD 11/07/2024 7:19 AM [facility] Monocytes Absolute 0.87 0.20 - 1.00 K/mcL LAB HEMETOLOGY METHOD 11/07/2024 7:19 AM [facility] Eosinophils Absolute 0.24 0.00 - 0.50 K/mcL LAB HEMETOLOGY METHOD 11/07/2024 7:19 AM [facility] Basophils Absolute 0.02 0.00 - 0.20 K/mcL LAB HEMETOLOGY METHOD 11/07/2024 7:19 AM [facility] Immature Granulocytes Absolute 0.07(H) 0.00 - 0.03 K/mcL LAB HEMETOLOGY METHOD 11/07/2024 7:19 AM [facility] Blood Venous blood specimen / Unknown Venipuncture / Unknown 11/07/2024 5:17 AM EDT 11/07/2024 6:39 AM EDT us Erica Charles [facility] LAB BLOOD ORDERABLES Final Resul t [facility] [address] [place] [address], * (ABNORMAL) Basic metabolic panel (11/04/2024 9:52 AM EDT) Only the most recent of2 resultswithin the time period is included. Sodium 142 133 - 145 mmol/L LAB CHEMISTR[facility] Potassium 3.9 3.5 - 5.5 mmol/L LAB CHEMISTRY METHOD 11/04/2024 7:30 PM [facility] Chloride 110 96 - 110 mmol/L LAB CHEMISTRY METHOD 11/04/2024 7:30 PM [facility] CO2 25 21 - 32 mmol/L LAB CHEMISTRY METHOD 11/04/2024 7:30 PM [facility] Anion Gap 7 3 - 11 LAB CHEMISTRY METHOD 11/04/2024 7:30 PM [facility] Glucose 113(H) 70 - 100 mg/dL LAB CHEMISTRY METHOD 11/04/2024 7:30 PM [facility] BUN 30(H) 5 - 25 mg/dL LAB CHEMISTRY METHOD 11/04/2024 7:30 PM [facility] Creatinine 1.06 0.70 - 1.30 mg/dL LAB CHEMISTRY METHOD 11/04/2024 7:30 PM [facility] eGFR 69 >=60 mL/min/1. 73m2 LAB CHEMISTRY METHOD 11/04/2024 7:30 PM [facility] Comment:Calculation based on the??Chronic Kidney Disease Epidemiology Collaboration (CKD-EPI) equation refit??without adjustment for race. BUN/Creatinine Ratio 28.3 LAB CHEMISTRY METHOD 11/04/2024 7:30 PM [facility] Calcium 7.6(L) 8.5 - 10.5 mg/dL LAB CHEMISTRY METHOD 11/04/2024 7:30 PM EDT [facility] Blood Venous blood specimen / Unknown Venipuncture / Unknown 11/04/2024 9:52 AM EDT 11/04/2024 11:40 AM EDT Tabby Bledsoe MD LAB BLOOD ORDERABLES Fin al Result Performing Organization Address City/[facility]/ZIP Co de Phone Number [facility] [address] [place] [address], [place] [phone] * (ABNORMAL) Sedimentation rate (10/18/2024 7:01 AM EDT) Only the most recent of2 resultswithin the time period is included. Sed Rate 58(H) 0 - 20 mm/hr LAB HEMETOLOGY METHOD 10/18/2024 10:16 AM EDT [facility] Blood Venous blood specimen / Unknown Venipuncture / Unknown 10/18/2024 7:01 AM EDT 10/18/2024 9:11 AM EDT Tabby Bledsoe MD LAB BLOOD ORDERABLES Fin al Result Performing Organization Address City/[facility]/ZIP Co de Phone Number [facility] [address] [place] [address], [place] [phone] * (ABNORMAL) C-reactive protein (10/18/2024 7:01 AM EDT) Only the most recent of2 resultswithin the time period is included. C-Reactive Protein 13.40(H) <=0.50 mg/dL LAB CHEMISTRY METHOD 10/18/2024 10:08 AM EDT [facility] Blood Venous blood specimen / Unknown Venipuncture / Unknown 10/18/2024 7:01 AM EDT 10/18/2024 9:11 AM EDT Tabby Bledsoe MD LAB BLOOD ORDERABLES Fin al Result Performing Organization Address City/[facility]/ZIP Co de Phone Number [facility] [address] [place] [address], [place] [phone] * (ABNORMAL) Prealbumin (09/25/2024 5:37 AM EDT) Only the most recent of2 resultswithin the time period is included. Prealbumin 10(L) 18 - 45 mg/dL LAB CHEMISTRY METHOD 09/25/2024 3:27 PM EDT [facility] Blood Venous blood specimen / Unknown Venipuncture / Unknown 09/25/2024 5:37 AM EDT 09/25/2024 11:49 AM EDT Tabby Bledsoe MD LAB BLOOD ORDERABLES Fin al Result Performing Organization Address [facility] Co de Phone Number [facility] [address] [place] [address], [place] [phone] * Vancomycin, trough (09/09/2024 9:00 AM EST) Only the most recent of3 resultswithin the time period is included. Vancomycin Trough 18.4 10.0 - 20.0 mcg/mL LAB CHEMISTRY METHOD 09/09/2024 1:34 PM EST [facility] Blood Venous blood specimen / Unknown Venipuncture / Unknown 09/09/2024 9:00 AM EST 09/09/2024 11:09 AM EST Tabby Bledsoe MD LAB BLOOD ORDERABLES Fin al Result Performing Organization Address City/[facility]/ZIP Co de Phone Number [facility] [address] [place] [address], [place] [phone] * Vancomycin random (09/04/2024 7:02 AM EST) Vancomycin Rm 18.9 mcg/mL LAB CHEMISTRY METHOD 09/04/2024 12:36 PM EST [facility] Blood Venous blood specimen / Unknown Venipuncture / Unknown 09/04/2024 7:02 AM EST 09/04/2024 9:13 AM EST us Tabby Bledsoe MD LAB BLOOD ORDERABLES Fin al Result [facility] [address] [place] [address], from Last 3 Months Additional Health Concerns Infection Onset Date Last Indicated ESBL 06/22/2024 06/22/2024 Insurance MEDICARE [facility] MEDICARE ADVANTAGE Care Teams Systems Trainer Relationship Specialty Start Date End Date Uday Sheehan MD [address] [place] [address] Dr [place] PCP - General Data Warehouse Architect 12/19/16
--- OUTSIDE RECORDS SUMMARY | 2024-11-19 18:08 | XMS_ITS | Encounter Summary ---
Author Organization [facility] Address [address] [place] [address] Care Team Providers Care Transportation Security Screener Name Role Phone Uday Sheehan MD Primary Care Provider [phone] Encounter Details Date Type Department Care Team (Late st Contact Info) Description 10/12/2024 Lab Requisition [facility] - Main Lab [address] [place] [address] Tabby Bledsoe MD [address] [address] Bacteremia Social History Tobacco Use Types Packs/Day [...] LAB CHEMISTRY METHOD 10/14/2024 1:24 PM EDT [facility] Potassium 4.1 3.5 - 5.5 mmol/L LAB CHEMISTRY METHOD 10/14/2024 1:24 PM [facility] Chloride 105 96 - 110 mmol/L LAB CHEMISTRY METHOD 10/14/2024 1:24 PM [facility] CO2 28 21 - 32 mmol/L LAB CHEMISTRY METHOD 10/14/2024 1:24 PM [facility] Anion Gap 7 3 - 11 LAB CHEMISTRY METHOD 10/14/2024 1:24 PM [facility] Glucose 94 70 - 100 mg/dL LAB CHEMISTRY METHOD 10/14/2024 1:24 PM [facility] BUN 40(H) 5 - 25 mg/dL LAB CHEMISTRY METHOD 10/14/2024 1:24 PM [facility] Creatinine 1.19 0.70 - 1.30 mg/dL LAB CHEMISTRY METHOD 10/14/2024 1:24 PM [facility] eGFR 60 >=60 mL/min/1. 73m2 LAB CHEMISTRY METHOD 10/14/2024 1:24 PM [facility] Comment:Calculation based on the??Chronic Kidney Disease Epidemiology Collaboration (CKD-EPI) equation refit??without adjustment for race. BUN/Creatinine Ratio 33.6 LAB CHEMISTRY METHOD 10/14/2024 1:24 PM [facility] Calcium 8.2(L) 8.5 - 10.5 mg/dL LAB CHEMISTRY METHOD 10/14/2024 1:24 PM [facility] AST (SGOT) 150(H) 10 - 42 unit/L LAB CHEMISTRY METHOD 10/14/2024 1:24 PM [facility] Comment:Results verified by repeat testing ALT (SGPT) 122(H) 10 - 60 unit/L LAB CHEMISTRY METHOD 10/14/2024 1:24 PM [facility] Comment:Results verified by repeat testing Alkaline Phosphatase 113 42 - 121 unit/L LAB CHEMISTRY METHOD 10/14/2024 1:24 PM [facility] Total Protein 5.7(L) 6.0 - 8.0 g/dL LAB CHEMISTRY METHOD 10/14/2024 1:24 PM EDT [facility] Albumin 1.5(L) 3.2 - 5.0 g/dL LAB CHEMISTRY METHOD 10/14/2024 1:24 PM EDT [facility] Total Bilirubin 0.3 0.0 - 1.4 mg/dL LAB CHEMISTRY METHOD 10/14/2024 1:24 PM EDT [facility] Blood Venous blood specimen / Unknown Venipuncture / Unknown 10/14/2024 7:07 AM EDT 10/14/2024 10:10 AM EDT us Tabby Bledsoe MD LAB BLOOD ORDERABLES Fin al Result [facility] [address] [place] [address], * (ABNORMAL) Complete blood count (10/14/2024 7:07 AM EDT) WBC 5.9 4.8 - 10.8 K/mcL LAB HEMETOLOGY METHOD 10/14/2024 11:11 AM [facility] RBC 2.60(L) 4.50 - 5.50 M/mcL LAB HEMETOLOGY METHOD 10/14/2024 11:11 AM [facility] Hemoglobin 7.2(L) 13.5 - 17.5 g/dL LAB HEMETOLOGY METHOD 10/14/2024 11:11 AM [facility] Hematocrit 24.8(L) 42.0 - 54.0 % LAB HEMETOLOGY METHOD 10/14/2024 11:11 AM [facility] MCV 95.0 79.0 - 98.0 FL LAB HEMETOLOGY METHOD 10/14/2024 11:11 AM [facility] MCH 27.6 27.0 - 32.0 pcg LAB HEMETOLOGY METHOD 10/14/2024 11:11 AM EDT [facility] MCHC 29.0(L) 32.0 - 37.0 g/dL LAB HEMETOLOGY METHOD 10/14/2024 11:11 AM EDT [facility] RDW 16.8(H) 11.0 - 15.0 % LAB HEMETOLOGY METHOD 10/14/2024 11:11 AM EDT [facility] Platelets 218 130 - 400 K/mcL LAB HEMETOLOGY METHOD 10/14/2024 11:11 AM EDT [facility] MPV 9.7 7.0 - 11.0 FL LAB HEMETOLOGY METHOD 10/14/2024 11:11 AM EDT [facility] NRBC 0.0 <1.0 % LAB HEMETOLOGY METHOD 10/14/2024 11:11 AM EDT [facility] NRBC Absolute 0.00 <0.10 K/mcL LAB HEMETOLOGY METHOD 10/14/2024 11:11 AM T [facility] Blood Venous blood specimen / Unknown Venipuncture / Unknown 10/14/2024 7:07 AM EDT 10/14/2024 10:10 AM EDT us Tabby Bledsoe MD LAB BLOOD ORDERABLES Fin al Result [facility] [address] [place] [address], documented in this encounter Visit Diagnoses Diagnosis Bacteremia documented in this encounter Additional Health Concerns Infection Onset Date Last Indicated Resolved Time ESBL 06/22/2024 06/22/2024 documented as of this encounter Care Teams Transportation Security Screener Relationship Specialty Start Date End Date Uday Sheehan MD [address] [facility] [address] Donna [place] PCP - General Brass Instrument Repair Technician 12/19/16 documented as of this encounter
--- OUTSIDE RECORDS SUMMARY | 2024-11-19 18:08 | XMS_ITS | Encounter Summary ---
Author Organization [facility] Address [address] [place] [address] Care Team Providers Care Foreign Language Stenographer Name Role Phone Uday Sheehan MD Primary Care Provider [phone] Encounter Details Date Type Department Care Team (Late st Contact Info) Description 08/24/2024 Lab Requisition [facility] - Main Lab 299 [facility] [place] [address] Tabby Bledsoe MD 8[address] [facility] [address] [place], [place] [id number] Bacteremia; Heart failure, unspecified (CMS/HCC V24, CMS/HCC [...] (ABNORMAL) Prealbumin (08/26/2024 7:46 AM EST) Pathologist [facility] Prealbumin 9(L) 18 - 45 mg/dL LAB CHEMISTRY METHOD 08/26/2024 11:01 AM [facility] Blood Venous blood specimen / Unknown Venipuncture / Unknown 08/26/2024 7:46 AM EST 08/26/2024 10:11 AM EST us Tabby Bledsoe MD LAB BLOOD ORDERABLES Fin al Result [facility] [address] [place] [address], [place] [phone] * (ABNORMAL) Comprehensive metabolic panel (08/26/2024 7:46 AM EST) [facility] Sodium 139 133 - 145 mmol/L LAB CHEMISTRY METHOD 08/26/2024 11:03 AM [facility] Potassium 4.3 3.5 - 5.5 mmol/L LAB CHEMISTRY METHOD 08/26/2024 11:03 AM [facility] Chloride 105 96 - 110 mmol/L LAB CHEMISTRY METHOD 08/26/2024 11:03 AM [facility] CO2 29 21 - 32 mmol/L LAB CHEMISTRY METHOD 08/26/2024 11:03 AM [facility] Anion Gap 5 3 - 11 LAB CHEMISTRY METHOD 08/26/2024 11:03 AM [facility] Glucose 81 70 - 100 mg/dL LAB CHEMISTRY METHOD 08/26/2024 11:03 AM [facility] BUN 24 5 - 25 mg/dL LAB CHEMISTRY METHOD 08/26/2024 11:03 AM [facility] Creatinine 1.43(H) 0.70 - 1.30 mg/dL LAB CHEMISTRY METHOD 08/26/2024 11:03 AM [facility] eGFR 48(L) >=60 mL/min/1. 73m2 LAB CHEMISTRY METHOD 08/26/2024 11:03 AM [facility] Comment:Calculation based on the??Chronic Kidney Disease Epidemiology Collaboration (CKD-EPI) equation refit??without adjustment for race. BUN/Creatinine Ratio 16.8 LAB CHEMISTRY METHOD 08/26/2024 11:03 AM [facility] Calcium 8.1(L) 8.5 - 10.5 mg/dL LAB CHEMISTRY METHOD 08/26/2024 11:03 AM [facility] AST (SGOT) 23 10 - 42 unit/L LAB CHEMISTRY METHOD 08/26/2024 11:03 AM [facility] ALT (SGPT) 18 10 - 60 unit/L LAB CHEMISTRY METHOD 08/26/2024 11:03 AM [facility] Alkaline Phosphatase 88 42 - 121 unit/L LAB CHEMISTRY METHOD 08/26/2024 11:03 AM [facility] Total Protein 5.4(L) 6.0 - 8.0 g/dL LAB CHEMISTRY METHOD 08/26/2024 11:03 AM [facility] Albumin 1.3(L) 3.2 - 5.0 g/dL LAB CHEMISTRY METHOD 08/26/2024 11:03 AM [facility] Total Bilirubin 0.4 0.0 - 1.4 mg/dL LAB CHEMISTRY METHOD 08/26/2024 11:03 AM [facility] Blood Venous blood specimen / Unknown Venipuncture / Unknown 08/26/2024 7:46 AM EST 08/26/2024 10:11 AM EST us Tabby Bledsoe MD LAB BLOOD ORDERABLES Fin al Result [facility] [address] [place] [address], * (ABNORMAL) Complete blood count (08/26/2024 7:46 AM EST) [facility] WBC 5.9 4.8 - 10.8 K/mcL LAB HEMETOLOGY METHOD 08/26/2024 10:37 AM [facility] RBC 2.60(L) 4.50 - 5.50 M/mcL LAB HEMETOLOGY METHOD 08/26/2024 10:37 AM [facility] Hemoglobin 7.0(L) 13.5 - 17.5 g/dL LAB HEMETOLOGY METHOD 08/26/2024 10:37 AM [facility] Hematocrit 23.5(L) 42.0 - 54.0 % LAB HEMETOLOGY METHOD 08/26/2024 10:37 AM [facility] MCV 91.1 79.0 - 98.0 FL LAB HEMETOLOGY METHOD 08/26/2024 10:37 AM [facility] MCH 27.1 27.0 - 32.0 pcg LAB HEMETOLOGY METHOD 08/26/2024 10:37 AM [facility] MCHC 29.8(L) 32.0 - 37.0 g/dL LAB HEMETOLOGY METHOD 08/26/2024 10:37 AM [facility] RDW 18.1(H) 11.0 - 15.0 % LAB HEMETOLOGY METHOD 08/26/2024 10:37 AM [facility] Platelets 309 130 - 400 K/mcL LAB HEMETOLOGY METHOD 08/26/2024 10:37 AM [facility] MPV 9.2 7.0 - 11.0 FL LAB HEMETOLOGY METHOD 08/26/2024 10:37 AM [facility] NRBC 0.0 <1.0 % LAB HEMETOLOGY METHOD 08/26/2024 10:37 AM EST [facility] NRBC Absolute 0.00 <0.10 K/mcL LAB HEMETOLOGY METHOD 08/26/2024 10:37 AM EST [facility] Blood Venous blood specimen / Unknown Venipuncture / Unknown 08/26/2024 7:46 AM EST 08/26/2024 10:11 AM EST us Tabby Bledsoe MD LAB BLOOD ORDERABLES Fin al Result [facility] [address] [place] [address], documented in this encounter Visit Diagnoses Diagnosis Bacteremia Heart failure, unspecified (CMS/HCC V24, CMS/HCC V28) Heart failure, unspecified Pressure ulcer of unspecified site, unspecified stage documented in this encounter Additional Health Concerns Infection Onset Date Last Indicated Resolved Time ESBL 06/22/2024 06/22/2024 documented as of this encounter Care Teams Foreign Language Stenographer Relationship Specialty Start Date End Date Uday Sheehan MD [address] [place] [address] Dr Donna [place] PCP - General Club Director 12/19/16 documented as of this encounter
--- OUTSIDE RECORDS SUMMARY | 2024-11-19 18:08 | XMS_ITS | Encounter Summary ---
Author Organization [facility] Address [address] [place] [address] Care Team Providers Care Applications Engineering Manager Name Role Phone Uday Sheehan MD Primary Care Provider [phone] Encounter Details Date Type Department Care Team (Late st Contact Info) Description 07/12/2024 Lab Requisition [facility] - Main Lab 299 [facility] [place] [address] Tabby Bledsoe MD [address] [address] Bacteremia Social History Tobacco Use Types Packs/Day [...] documented as of this encounter Care Teams Applications Engineering Manager Relationship Specialty Start Date End Date Uday Sheehan MD [address] [place] [address] PCP - General Medical Care Manager 12/19/16 documented as of this encounter
--- OUTSIDE RECORDS SUMMARY | 2024-11-19 18:08 | XMS_ITS | Encounter Summary ---
Author Organization [facility] Address [address] [place] [address] Care Team Providers Care Marketing Technology Coordinator Name Role Phone Uday Sheehan Primary Care Provider [phone] Encounter Details Date Type Department Care Team (Late st Contact Info) Description 05/28/2024 Lab Requisition [facility] Lab Department [address] [place] [address] Lidia Barry, CB [address] [place] [address] Acute and chronic respiratory failure with hypoxia; [...] encounter Procedures * Due to [place] Exit[employer] law, this organization might not be sharing negative HIV tests. Procedure Name Priority Date/Time Associated Diagnosis Comments TROPONIN T HIGH SENSITIVITY Routine 05/28/2024 8:45 PM EST Acute and chronic respiratory failure with hypoxia (HCC) No diagnosis documented in this encounter Results * Due to [place] Exit[employer] law, this organization might not be sharing negative HIV tests. * (ABNORMAL) Troponin T, High Sensitivity (05/28/2024 8:45 PM EST) Troponin T High Sensitivity 35(H) 6 - 22 ng/L 05/28/2024 9:42 PM EST [facility] Comment: [id number]-C level of 52 ng/L or higher at [...] be evaluated in line with the 4th [place] Definition of AMI. 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
--- OUTSIDE RECORDS SUMMARY | 2024-11-19 18:08 | XMS_ITS | Encounter Summary ---
Author Organization [facility] Address [address] [place] [address] Care Team Providers Care Pvc Monitor Name Role Phone Uday Sheehan MD Primary Care Provider [phone] Encounter Details Date Type Department Care Team (Late st Contact Info) Description 06/13/2024 Lab Requisition [facility] - Main Lab [address] [facility] [place] [address] Natanael Rodney MD [address] [place] [address] [place] [address] Anemia, unspecified Social [...] LAB CHEMISTRY METHOD 06/13/2024 11:42 AM EST [facility] Blood Venous blood specimen / Unknown Venipuncture / Unknown 06/13/2024 7:00 AM EST 06/13/2024 8:28 AM EST us Natanael Rodney MD LAB BLOOD ORDERABLES Final Resu lt Performing Organization Address [facility]/ZIP Co de Phone Number [facility] [address] [place] [address], [place] [phone] * Free thyroxine with reflex to free triiodothyronine (06/13/2024 7:00 AM EST) Free T4 0.97 0.70 - 1.80 ng/dL LAB CHEMISTRY METHOD 06/13/2024 10:56 AM EST [facility] Blood Venous blood specimen / Unknown Venipuncture / Unknown 06/13/2024 7:00 AM EST 06/13/2024 8:28 AM EST us Natanael Rodney MD LAB BLOOD ORDERABLES Final Resu lt [facility] [address] [place] [address], [place] [phone] * (ABNORMAL) Thyroid stimulating hormone with reflex to free t4 and free t3 (06/13/2024 7:00 AM EST) TSH 5.31(H) 0.40 - 4.00 mcIU/mL LAB CHEMISTRY METHOD 06/13/2024 10:28 AM EST [facility] Blood Venous blood specimen / Unknown Venipuncture / Unknown 06/13/2024 7:00 AM EST 06/13/2024 8:28 AM EST us Natanael Rodney MD LAB BLOOD ORDERABLES Final Resu lt [facility] [address] [place] [address], [place] [phone] * (ABNORMAL) Comprehensive metabolic panel (06/13/2024 7:00 AM EST) Sodium 146(H) 133 - 145 mmol/L LAB CHEMISTRY METHOD 06/13/2024 10:[address] [facility] Potassium 4.2 3.5 - 5.5 mmol/L LAB CHEMISTRY METHOD 06/13/2024 10:[address] [facility] Chloride 115(H) 96 - 110 mmol/L LAB CHEMISTRY METHOD 06/13/2024 10:[address] [facility] CO2 24 21 - 32 mmol/L LAB CHEMISTRY METHOD 06/13/2024 10:[address] [facility] Anion Gap 7 3 - 11 LAB CHEMISTRY METHOD 06/13/2024 10:[address] [facility] Glucose 86 70 - 100 mg/dL LAB CHEMISTRY METHOD 06/13/2024 10:[address] [facility] BUN 43(H) 5 - 25 mg/dL LAB CHEMISTRY METHOD 06/13/2024 10:[address] [facility] Creatinine 2.70(H) 0.70 - 1.30 mg/dL LAB CHEMISTRY METHOD 06/13/2024 10:[address] [facility] eGFR 23(L) >=60 mL/min/1. 73m2 LAB CHEMISTRY METHOD 06/13/2024 10:[address] [facility] Comment:Calculation based on the??Chronic Kidney Disease Epidemiology Collaboration (CKD-EPI) equation refit??without adjustment for race. BUN/Creatinine Ratio 15.9 LAB CHEMISTRY METHOD 06/13/2024 10:[address] [facility] Calcium 7.8(L) 8.5 - 10.5 mg/dL LAB CHEMISTRY METHOD 06/13/2024 10:[address] [facility] AST (SGOT) 137(H) 10 - 42 unit/L LAB CHEMISTRY METHOD 06/13/2024 10:[address] [facility] ALT (SGPT) 111(H) 10 - 60 unit/L LAB CHEMISTRY METHOD 06/13/2024 10:[address] [facility] Alkaline Phosphatase 99 42 - 121 unit/L LAB CHEMISTRY METHOD 06/13/2024 10:[address] [facility] Total Protein 5.5(L) 6.0 - 8.0 g/dL LAB CHEMISTRY METHOD 06/13/2024 10:[address] [facility] Albumin 1.7(L) 3.2 - 5.0 g/dL LAB CHEMISTRY METHOD 06/13/2024 10:[address] [facility] Total Bilirubin 0.5 0.0 - 1.4 mg/dL LAB CHEMISTRY METHOD 06/13/2024 10:[address] [facility] Blood Venous blood specimen / Unknown Venipuncture / Unknown 06/13/2024 7:00 AM EST 06/13/2024 8:28 AM EST us Natanael Rodney MD LAB BLOOD ORDERABLES Final Resu lt [facility] [address] [place] [address], * (ABNORMAL) Complete blood count (06/13/2024 7:00 AM EST) WBC 4.9 4.8 - 10.8 K/mcL LAB HEMETOLOGY METHOD 06/13/2024 10:[address] [facility] RBC 2.80(L) 4.50 - 5.50 M/mcL LAB HEMETOLOGY METHOD 06/13/2024 10:[address] [facility] Hemoglobin 7.6(L) 13.5 - 17.5 g/dL LAB HEMETOLOGY METHOD 06/13/2024 10:[address] [facility] Hematocrit 25.2(L) 42.0 - 54.0 % LAB HEMETOLOGY METHOD 06/13/2024 10:[address] [facility] MCV 88.7 79.0 - 98.0 FL LAB HEMETOLOGY METHOD 06/13/2024 10:[address] [facility] MCH 26.8(L) 27.0 - 32.0 pcg LAB HEMETOLOGY METHOD 06/13/2024 10:[address] [facility] MCHC 30.2(L) 32.0 - 37.0 g/dL LAB HEMETOLOGY METHOD 06/13/2024 10:[address] [facility] RDW 16.8(H) 11.0 - 15.0 % LAB HEMETOLOGY METHOD 06/13/2024 10:[address] [facility] Platelets 188 130 - 400 K/mcL LAB HEMETOLOGY METHOD 06/13/2024 10:[address] [facility] MPV 10.3 7.0 - 11.0 FL LAB HEMETOLOGY METHOD 06/13/2024 10:[address] [facility] NRBC 0.0 <1.0 % LAB HEMETOLOGY METHOD 06/13/2024 10:[address] [facility] NRBC Absolute 0.00 <0.10 K/mcL LAB HEMETOLOGY METHOD 06/13/2024 10:[address] [facility] Blood Venous blood specimen / Unknown Venipuncture / Unknown 06/13/2024 7:00 AM EST 06/13/2024 8:28 AM EST us Natanael Rodney MD LAB BLOOD ORDERABLES Final Resu lt [facility] [address] [place] [address], documented in this encounter Visit Diagnoses Diagnosis Anemia, unspecified documented in this encounter Additional Health Concerns Infection Onset Date Last Indicated Resolved Time ESBL 06/22/2024 06/22/2024 documented as of this encounter Care Teams Pvc Monitor Relationship Specialty Start Date End Date Uday Sheehan MD [address] [place] [address] Dr Donna [place] PCP - General Rehabilitation Case Coordinator 12/19/16 documented as of this encounter
--- OUTSIDE RECORDS SUMMARY | 2024-11-19 18:08 | XMS_ITS | Patient Health Record ---
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 Villalobos-cardiology at [facility]--s/p cardioversion 07/2021 at [facility] with Dr. Briones---he has had multiple [...]
--- OUTSIDE RECORDS SUMMARY | 2024-11-19 18:08 | XMS_ITS | Encounter Summary ---
Author Organization [facility] Address [address] [place] [address] Care Team Providers Care Fire Safety Director Name Role Phone Uday Sheehan Primary Care Provider [phone] Encounter Details Date Type Department Care Team (Late st Contact Info) Description 05/21/2024 Orders Only [facility] Interventional Radiology [address] [place] [id number] Cedric Blank MD [address] [place] [address] Social History Tobacco Use Types Packs/Day Years [...] as of this encounter Care Teams Fire Safety Director Relationship Specialty Start Date End Date Uday Sheehan [address] [place] [address] [place] [address] PCP - General Internal Medicine 03/27/24 documented as of this encounter
--- OUTSIDE RECORDS SUMMARY | 2024-11-19 18:08 | XMS_ITS | Encounter Summary ---
Author Organization [facility] Address [address] [place] [address] Care Team Providers Care Aircraft Refueller Name Role Phone Uday Sheehan Primary Care Provider [phone] Encounter Details Date Type Department Care Team (Late st Contact Info) Description 05/28/2024 Lab Requisition [facility] [address] [place] [address] Valarie Pierson MD [address] [place] [address] Acute and chronic respiratory failure with hypoxia; [...] this encounter Procedures * Due to [place] [employer] law, this organization might not be sharing negative HIV tests. Procedure Name Priority Date/Time Associated Diagnosis Comments TROPONIN T HIGH SENSITIVITY Routine 05/28/2024 2:28 PM EST Acute and chronic respiratory failure with hypoxia (HCC) No diagnosis documented in this encounter Results * Due to [place] [employer] law, this organization might not be sharing negative HIV tests. * (ABNORMAL) Troponin T, High Sensitivity (05/28/2024 2:28 PM EST) Troponin T High Sensitivity 35(H) 6 - 22 ng/L 05/28/2024 3:30 PM EST [facility] Comment: [id number] level of 52 ng/L or higher at [...] be evaluated in line with the 4th [place] Definition of AMI. 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
--- OUTSIDE RECORDS SUMMARY | 2024-11-19 18:08 | XMS_ITS | Continuity of Care Document ---
Author Organization [facility] [address] [place] [address] Phone [phone] Social History Type Date Description Comments Sex Unknown Medical Devices Description No Information Available Encounters Description No Information Available Assessments Description No Information Available Plan of Treatment No Information Available Functional Status Description No Information Available Mental Status Description No Information Available Referrals Description No Information Available
--- OUTSIDE RECORDS SUMMARY | 2024-11-19 18:08 | XMS_ITS | Encounter Summary ---
Author Organization [facility] Address [address] [place] [address] Care Team Providers Care Certified Art Therapist Name Role Phone Uday Sheehan MD Primary Care Provider Encounter Details Date Type Department Care Team (Late st Contact Info) Description 06/11/2024 Lab Requisition [facility] - Main Lab [address] [place] [address] Zak Zuluaga MD [address] [place] [address] Anemia, unspecified Social History Tobacco Use Types [...] mmol/L LAB CHEMISTRY METHOD 06/11/2024 10:54 AM [facility] Chloride 112(H) 96 - 110 mmol/L LAB CHEMISTRY METHOD 06/11/2024 10:54 AM [facility] CO2 23 21 - 32 mmol/L LAB CHEMISTRY METHOD 06/11/2024 10:54 AM [facility] Anion Gap 10 3 - 11 LAB CHEMISTRY METHOD 06/11/2024 10:54 AM [facility] Glucose 88 70 - 100 mg/dL LAB CHEMISTRY METHOD 06/11/2024 10:54 AM [facility] BUN 42(H) 5 - 25 mg/dL LAB CHEMISTRY METHOD 06/11/2024 10:54 AM [facility] Creatinine 2.55(H) 0.70 - 1.30 mg/dL LAB CHEMISTRY METHOD 06/11/2024 10:54 AM [facility] eGFR 24(L) >=60 mL/min/1. 73m2 LAB CHEMISTRY METHOD 06/11/2024 10:54 AM [facility] Comment:Calculation based on the??Chronic Kidney Disease Epidemiology Collaboration (CKD-EPI) equation refit??without adjustment for race. BUN/Creatinine Ratio 16.5 LAB CHEMISTRY METHOD 06/11/2024 10:54 AM [facility] Calcium 7.9(L) 8.5 - 10.5 mg/dL LAB CHEMISTRY METHOD 06/11/2024 10:54 AM [facility] Blood Venous blood specimen / Unknown Venipuncture / Unknown 06/11/2024 8:24 AM EST 06/11/2024 9:58 AM EST us Zak Zuluaga MD LAB BLOOD ORDERABLES Final Resul t [facility] [address] [place] [address], * (ABNORMAL) Complete blood count (06/11/2024 8:24 AM EST) [facility] WBC 5.5 4.8 - 10.8 K/mcL LAB HEMETOLOGY METHOD 06/11/2024 10:35 AM [facility] RBC 2.90(L) 4.50 - 5.50 M/mcL LAB HEMETOLOGY METHOD 06/11/2024 10:35 AM [facility] Hemoglobin 7.7(L) 13.5 - 17.5 g/dL LAB HEMETOLOGY METHOD 06/11/2024 10:35 AM [facility] Hematocrit 25.5(L) 42.0 - 54.0 % LAB HEMETOLOGY METHOD 06/11/2024 10:35 AM [facility] MCV 87.6 79.0 - 98.0 FL LAB HEMETOLOGY METHOD 06/11/2024 10:35 AM [facility] MCH 26.5(L) 27.0 - 32.0 pcg LAB HEMETOLOGY METHOD 06/11/2024 10:35 AM [facility] MCHC 30.2(L) 32.0 - 37.0 g/dL LAB HEMETOLOGY METHOD 06/11/2024 10:35 AM [facility] RDW 16.7(H) 11.0 - 15.0 % LAB HEMETOLOGY METHOD 06/11/2024 10:35 AM [facility] Platelets 176 130 - 400 K/mcL LAB HEMETOLOGY METHOD 06/11/2024 10:35 AM [facility] MPV 10.7 7.0 - 11.0 FL LAB HEMETOLOGY METHOD 06/11/2024 10:35 AM [facility] NRBC 0.0 <1.0 % LAB HEMETOLOGY METHOD 06/11/2024 10:35 AM [facility] NRBC Absolute 0.00 <0.10 K/mcL LAB HEMETOLOGY METHOD 06/11/2024 10:35 AM EST [facility] Blood Venous blood specimen / Unknown Venipuncture / Unknown 06/11/2024 8:24 AM EST 06/11/2024 9:58 AM EST us Zak Zuluaga MD LAB BLOOD ORDERABLES Final Resul t [facility] [address] [place] [address], documented in this encounter Visit Diagnoses Diagnosis Anemia, unspecified documented in this encounter Additional Health Concerns Infection Onset Date Last Indicated Resolved Time ESBL 06/22/2024 06/22/2024 documented as of this encounter Care Teams Certified Art Therapist Relationship Specialty Start Date End Date Uday Sheehan MD [address] [place] [address] Dr Donna MA PCP - General Health Sciences Department Chair 12/19/16 documented as of this encounter
--- OUTSIDE RECORDS SUMMARY | 2024-11-19 18:09 | XMS_ITS | Encounter Summary ---
Author Organization [facility] Address [address] [place] [address] Care Team Providers Care Mobility Architect Name Role Phone Uday Sheehan Primary Care Provider [phone] Encounter Details Date Type Department Care Team (Late st Contact Info) Description 03/17/2024 Lab Requisition [facility] Lab [address] [place] [id number] No diagnosis Social History Tobacco Use Types [...] documented as of this encounter Care Teams Mobility Architect Relationship Specialty Start Date End Date Uday Sheehan [address] [place] [address] dr Donna [place] [id number] PCP - General Internal Medicine 03/27/24 documented as of this encounter
--- OUTSIDE RECORDS SUMMARY | 2024-11-19 18:09 | XMS_ITS | Encounter Summary ---
Author Organization [facility] Address [address] [place] [address] Care Team Providers Care Sexer Name Role Phone Uday Sheehan Primary Care Provider [phone] Encounter Details Date Type Department Care Team (Late st Contact Info) Description 03/12/2024 Lab Requisition [facility] Lab [address] [place] [address] Valarie Pierson MD [address] [place] [address] Acute and chronic respiratory failure with hypoxia; [...] Date/Time Associated Diagnosis Comments RESPIRATORY PANEL PLUS, TECHNICAL DELIVERY MANAGER SWAB ([facility]) Routine 03/12/2024 9:35 AM EDT Acute [...] negative HIV tests. * Respiratory Panel w/Sars-CoV-2, TECHNICAL DELIVERY MANAGER Swab - [place] only (03/12/2024 9:35 AM EDT) Adenovirus DNA (PCR) Not Detected Not Detected QIAGEN QIASTAT-D X 03/12/2024 11:56 AM EDT [facility] Human Coronavirus 229E RNA (PCR) Not Detected Not Detected QIAGEN QIASTAT-D X 03/12/2024 11:56 AM EDT [facility] Human Coronavirus HKU1 RNA (PCR) Not Detected Not Detected QIAGEN QIASTAT-D X 03/12/2024 11:56 AM EDT [facility] Human Coronavirus NL63 RNA (PCR) Not Detected Not Detected QIAGEN QIASTAT-D X 03/12/2024 11:56 AM EDT [facility] Human Coronavirus OC43 RNA (PCR) Not Detected Not Detected QIAGEN QIASTAT-D X 03/12/2024 11:56 AM EDT [facility] Human Metapneumovirus RNA (PCR) Not Detected Not Detected QIAGEN QIASTAT-D X 03/12/2024 11:56 AM EDT [facility] Influenza A RNA (PCR) Not Detected Not Detected QIAGEN QIASTAT-D X 03/12/2024 11:56 AM EDT [facility] Influenza A H1 RNA (PCR) Not Detected Not Detected QIAGEN QIASTAT-D X 03/12/2024 11:56 AM EDT [facility] Influenza A H3 RNA (PCR) Not Detected Not Detected QIAGEN QIASTAT-D X 03/12/2024 11:56 AM EDT [facility] Influenza A H1N1 RNA (PCR) Not Detected Not Detected QIAGEN QIASTAT-D X 03/12/2024 11:56 AM EDT [facility] Influenza B RNA (PCR) Not Detected Not Detected QIAGEN QIASTAT-D X 03/12/2024 11:56 AM EDT [facility] Parainfluenza 1 RNA (PCR) Not Detected Not Detected QIAGEN QIASTAT-D X 03/12/2024 11:56 AM EDT [facility] Parainfluenza 2 RNA (PCR) Not Detected Not Detected QIAGEN QIASTAT-D X 03/12/2024 11:56 AM EDT [facility] Parainfluenza 3 RNA (PCR) Not Detected Not Detected QIAGEN QIASTAT-D X 03/12/2024 11:56 AM EDT [facility] Parainfluenza 4 RNA (PCR) Not Detected Not Detected QIAGEN QIASTAT-D X 03/12/2024 11:56 AM EDT [facility] Human Rhinovirus/Enterov irus RNA (PCR) Not Detected Not Detected QIAGEN QIASTAT-D X 03/12/2024 11:56 AM EDT [facility] RSV RNA (PCR) Not Detected Not Detected QIAGEN QIASTAT-D X 03/12/2024 11:56 AM EDT [facility] SARS CoV-2 RNA (PCR) Not Detected Not Detected QIAGEN QIASTAT-D X 03/12/2024 11:56 AM EDT [facility] Bordetella pertussis DNA (PCR) Not Detected Not Detected QIAGEN QIASTAT-D X 03/12/2024 11:56 AM EDT [facility] Chlamydophila pneumoniae DNA (PCR) Not Detected Not Detected QIAGEN QIASTAT-D X 03/12/2024 11:56 AM EDT [facility] Mycoplasma pneumoniae DNA (PCR) Not Detected Not Detected QIAGEN QIASTAT-D X 03/12/2024 11:56 AM EDT [facility] Nasopharyngeal Swab Specimen from nasopharyngeal structure / Unknown 03/12/2024 9:35 AM EDT 03/12/2024 9:58 AM EDT Narrative [facility] - 03/12/2024 11:56 AM EDT [...] FLUIDS AND STOOLS ORD ERABLES Final Result [facility] [address] [facility] [address] [place] [address], * Methicillin Resistant Staphylococcus aureus (MRSA) Culture Screen (03/12/2024 9:35 AM EDT) MRSA Culture No methicillin resistant Staphylococcus aureus (MRSA) isolated. [place] MANUAL 03/14/2024 7:25 AM EDT [facility] Swab Nasal structure / Unknown 03/12/2024 9:35 AM EDT 03/12/2024 9:58 AM EDT Valarie Pierson MD LAB MICROBIOLOGY - GENERAL ORD ERABLES Final Result [facility] [address] [place] [address] [address] [place] [address], * (ABNORMAL) CBC Auto Differential (03/12/2024 9:35 AM EDT) WBC 7.1 4.8 - 10.8 10*3/uL 03/12/2024 10:00 AM EDT [facility] RBC 3.25(L) 4.70 - 6.10 10*6/uL 03/12/2024 10:00 AM EDT [facility] Hemoglobin 9.2(L) 13.7 - 16.5 g/dL 03/12/2024 10:00 AM EDT [facility] Hematocrit 28.1(L) 40.5 - 48.5 % 03/12/2024 10:00 AM EDT [facility] MCV 86.5 80.0 - 94.0 fL 03/12/2024 10:00 AM EDT [facility] MCH 28.3 26.0 - 34.0 pg 03/12/2024 10:00 AM EDT [facility] MCHC 32.7 31.0 - 36.0 g/dL 03/12/2024 10:00 AM EDT [facility] RDW 15.0 12.0 - 15.0 % 03/12/2024 10:00 AM EDT [facility] RDW Standard Deviation 47.8(H) 35.1 - 43.9 fL 03/12/2024 10:00 AM EDT [facility] Platelets 124(L) 140 - 440 10*3/uL 03/12/2024 10:00 AM EDT [facility] MPV 10.6 9.4 - 12.4 fL 03/12/2024 10:00 AM EDT [facility] Neutrophil % 56.8 50.0 - 75.0 % 03/12/2024 10:00 AM EDT [facility] Immature Grans % 0.3 0.0 - 0.9 % 03/12/2024 10:00 AM EDT [facility] Lymphocyte % 27.0 20.0 - 44.0 % 03/12/2024 10:00 AM EDT [facility] Monocyte % 11.5 0.0 - 14.0 % 03/12/2024 10:00 AM EDT [facility] Eosinophil % 3.8 0.0 - 5.0 % 03/12/2024 10:00 AM EDT [facility] Basophil % 0.6 0.0 - 2.0 % 03/12/2024 10:00 AM EDT [facility] Neutrophil # 4.03 1.80 - 7.70 10*3/uL 03/12/2024 10:00 AM EDT [facility] Immature Grans # <0.03 0.00 - 0.03 10*3/uL 03/12/2024 10:00 AM EDT [facility] Lymphocyte # 1.90 1.00 - 4.75 10*3/uL 03/12/2024 10:00 AM EDT [facility] Monocyte # 0.80 0.00 - 6.00 10*3/uL 03/12/2024 10:00 AM EDT [facility] Eosinophil # 0.30 0.00 - 0.80 10*3/uL 03/12/2024 10:00 AM EDT [facility] Basophil # <0.03 0.00 - 0.20 10*3/uL 03/12/2024 10:00 AM EDT [facility] nRBC % 0.0 0 - 0 /100 WBCs 03/12/2024 10:00 AM EDT [facility] nRBC # <0.01 0.00 - 0.13 10*3/uL 03/12/2024 10:00 AM EDT [facility] Blood Structure of peripheral vein / Unknown 03/12/2024 9:35 AM EDT 03/12/2024 9:35 AM EDT us Valarie Pierson MD LAB BLOOD ORDERABLES Final Res ult Performing Organization Address [facility]/ZIP Co de Phone Number [facility] [address] [address], [place] [phone] * (ABNORMAL) TSH (03/12/2024 9:35 AM EDT) TSH 11.100(H) 0.270 - 4.200 uIU/mL 03/12/2024 10:37 AM EDT [facility] Blood Structure of peripheral vein / Unknown 03/12/2024 9:35 AM EDT 03/12/2024 9:35 AM EDT Valarie Pierson MD LAB BLOOD ORDERABLES Final Res ult Performing Organization Address [facility]/ZIP Co de Phone Number [facility] [address] [address], [place] [phone] * (ABNORMAL) Comprehensive Metabolic Panel (03/12/2024 9:35 AM EDT) NA 137 136 - 145 mmol/L 03/12/2024 10:37 AM EDT [facility] K 3.9 3.5 - 5.1 mmol/L 03/12/2024 10:37 AM EDT [facility] Cl 101 98 - 109 mmol/L 03/12/2024 10:37 AM EDT [facility] CO2 27 23 - 32 mmol/L 03/12/2024 10:37 AM EDT [facility] Anion Gap 13 >=0 03/12/2024 10:37 AM EDT [facility] Glucose 99 60 - 99 mg/dL 03/12/2024 10:37 AM EDT [facility] Creatinine 1.08 0.50 - 1.12 mg/dL 03/12/2024 10:37 AM EDT [facility] Calcium 9.4 8.4 - 10.4 mg/dL 03/12/2024 10:37 AM T [facility] Total Protein 6.6 6.6 - 8.7 g/dL 03/12/2024 10:37 AM [facility] Albumin 3.2(L) 3.5 - 5.0 g/dL 03/12/2024 10:37 AM EDT [facility] Bilirubin, Total 0.4 0.2 - 1.2 mg/dL 03/12/2024 10:37 AM T [facility] Alkaline Phosphatase 109 40 - 129 U/L 03/12/2024 10:37 AM T [facility] AST 62(H) 0 - 40 U/L 03/12/2024 10:37 AM [facility] ALT 65(H) <=41 U/L 03/12/2024 10:37 AM [facility] BUN 14 8 - 23 mg/dL 03/12/2024 10:37 AM [facility] eGFR 68 >=60 mL/min/1. 73m2 03/12/2024 10:37 AM T [facility] Comment:The estimated glomer ular filtration [...] 2.1 - 4.2 g/dL 03/12/2024 10:37 AM [facility] A/G Ratio 0.9(L) 1.5 - 3.0 03/12/2024 10:37 AM EDT [facility] Blood Structure of peripheral vein / Unknown 03/12/2024 9:35 AM EDT 03/12/2024 9:35 AM EDT us Valarie Pierson MD LAB BLOOD ORDERABLES Final Res ult [facility] [address] [facility] [address] [place] [address], documented in this encounter Visit Diagnoses Diagnosis [...] documented as of this encounter Care Teams Sexer Relationship Specialty Start Date End Date Uday Sheehan [address] [place] [address] [place] [address] PCP - General Internal Medicine 03/27/24 documented as of this encounter
--- OUTSIDE RECORDS SUMMARY | 2024-11-19 18:09 | XMS_ITS | Encounter Summary ---
Author Organization [facility] Address [address] [place] [address] Care Team Providers Care Internist Name Role Phone Uday Sheehan Primary Care Provider [phone] Encounter Details Date Type Department Care Team (Late st Contact Info) Description 03/18/2024 Lab Requisition [facility] [address] [place] [address] Cecilio Bautista PA [address] [place] [address] Acute respiratory failure with hypoxia; No diagnosis [...] - 10.8 10*3/uL 03/18/2024 10:10 AM EDT [facility] RBC 2.81(L) 4.70 - 6.10 10*6/uL 03/18/2024 10:10 AM EDT [facility] Hemoglobin 8.1(L) 13.7 - 16.5 g/dL 03/18/2024 10:10 AM EDT [facility] Hematocrit 23.6(L) 40.5 - 48.5 % 03/18/2024 10:10 AM EDT [facility] MCV 84.0 80.0 - 94.0 fL 03/18/2024 10:10 AM EDT [facility] MCH 28.8 26.0 - 34.0 pg 03/18/2024 10:10 AM EDT [facility] MCHC 34.3 31.0 - 36.0 g/dL 03/18/2024 10:10 AM EDT [facility] RDW 15.1(H) 12.0 - 15.0 % 03/18/2024 10:10 AM EDT [facility] RDW Standard Deviation 45.7(H) 35.1 - 43.9 fL 03/18/2024 10:10 AM EDT [facility] Platelets 159 140 - 440 10*3/uL 03/18/2024 10:10 AM EDT [facility] MPV 10.1 9.4 - 12.4 fL 03/18/2024 10:10 AM EDT [facility] Neutrophil % 55.7 50.0 - 75.0 % 03/18/2024 10:10 AM EDT [facility] Immature Grans % 0.3 0.0 - 0.9 % 03/18/2024 10:10 AM EDT [facility] Lymphocyte % 28.2 20.0 - 44.0 % 03/18/2024 10:10 AM EDT [facility] Monocyte % 12.5 0.0 - 14.0 % 03/18/2024 10:10 AM EDT [facility] Eosinophil % 2.9 0.0 - 5.0 % 03/18/2024 10:10 AM EDT [facility] Basophil % 0.4 0.0 - 2.0 % 03/18/2024 10:10 AM EDT [facility] Neutrophil # 4.10 1.80 - 7.70 10*3/uL 03/18/2024 10:10 AM EDT [facility] Immature Grans # <0.03 0.00 - 0.03 10*3/uL 03/18/2024 10:10 AM EDT [facility] Lymphocyte # 2.10 1.00 - 4.75 10*3/uL 03/18/2024 10:10 AM EDT [facility] Monocyte # 0.90 0.00 - 6.00 10*3/uL 03/18/2024 10:10 AM EDT [facility] Eosinophil # 0.20 0.00 - 0.80 10*3/uL 03/18/2024 10:10 AM EDT [facility] Basophil # <0.03 0.00 - 0.20 10*3/uL 03/18/2024 10:10 AM EDT [facility] nRBC % 0.0 0 - 0 /100 WBCs 03/18/2024 10:10 AM EDT [facility] nRBC # <0.01 0.00 - 0.13 10*3/uL 03/18/2024 10:10 AM EDT [facility] Blood Structure of peripheral vein / Unknown 03/18/2024 9:25 AM EDT 03/18/2024 9:25 AM EDT Cecilio ZHU LAB BLOOD ORDERABLES Final R esult Performing Organization Address [facility]/ZIP Co de Phone Number [facility] [address] [address], [place] [phone] * Vancomycin, Trough (03/18/2024 9:25 AM EDT) Vancomycin Trough 15.6 10.0 - 20.0 ug/mL 03/18/2024 10:36 AM EDT [facility] Blood Structure of peripheral vein / Unknown 03/18/2024 9:25 AM EDT 03/18/2024 9:25 AM EDT Cecilio Bautista [place] LAB BLOOD ORDERABLES Final R [facility] Performing Organization Address [facility] Co de Phone Number [facility] [address] [address], [place] [phone] * (ABNORMAL) Comprehensive Metabolic Panel (03/18/2024 9:25 AM EDT) NA 135(L) 136 - 145 mmol/L 03/18/2024 10:42 AM EDT [facility] K 3.6 3.5 - 5.1 mmol/L 03/18/2024 10:42 AM EDT [facility] Cl 96(L) 98 - 109 mmol/L 03/18/2024 10:42 AM EDT [facility] CO2 27 23 - 32 mmol/L 03/18/2024 10:42 AM EDT [facility] Anion Gap 16 >=0 03/18/2024 10:42 AM EDT [facility] Glucose 106(H) 60 - 99 mg/dL 03/18/2024 10:42 AM EDT [facility] Creatinine 1.00 0.50 - 1.12 mg/dL 03/18/2024 10:42 AM EDT [facility] Calcium 8.7 8.4 - 10.4 mg/dL 03/18/2024 10:42 AM EDT [facility] Total Protein 6.1(L) 6.6 - 8.7 g/dL 03/18/2024 10:42 AM EDT [facility] Albumin 3.1(L) 3.5 - 5.0 g/dL 03/18/2024 10:42 AM EDT [facility] Bilirubin, Total 0.5 0.2 - 1.2 mg/dL 03/18/2024 10:42 AM EDT [facility] Alkaline Phosphatase 107 40 - 129 U/L 03/18/2024 10:42 AM EDT [facility] AST 32 0 - 40 U/L 03/18/2024 10:42 AM EDT [facility] ALT 25 <=41 U/L 03/18/2024 10:42 AM EDT [facility] BUN 21 8 - 23 mg/dL 03/18/2024 10:42 AM EDT [facility] eGFR 74 >=60 mL/min/1. 73m2 03/18/2024 10:42 AM EDT [facility] Comment:The [...] - 4.2 g/dL 03/18/2024 10:42 AM EDT [facility] A/G Ratio 1.0(L) 1.5 - 3.0 03/18/2024 10:42 AM T [facility] Blood Structure of peripheral vein / Unknown 03/18/2024 9:25 AM EDT 03/18/2024 9:25 AM EDT us Cecilio ZHU LAB BLOOD ORDERABLES Final R esult [facility] [address] [place] [address], [place] [phone] documented in this encounter Visit Diagnoses Diagnosis [...] documented as of this encounter Care Teams Internist Relationship Specialty Start Date End Date Uday Sheehan [address] [place] [address] [place] [address] PCP - General Internal Medicine 03/27/24 documented as of this encounter
--- OUTSIDE RECORDS SUMMARY | 2024-11-19 18:09 | XMS_ITS ---
Author Organization [facility] Address [address] [place] [address] Care Team Providers Care Laboratory Engineer Name Role Phone Pearl Garcia Primary Care Provider Lucila Phillip [facility] [phone] Encounters Encounter Location Date Provider Diagnosis [facility] [address] [place] [address] 08/15/2024 Lucila Kapoor Plan Of Treatment No Information Progress Notes * Ramon SIMMSDOB:1939 (84 yo M)Acc No.[id number]:08/15/2024 Progress Notes Patient:?ARMANIKAEPINKY Ramon Provider:?Lucila Kapoor DPM :1940???Age:84 Y???Sex:Male Kevin e:08/15/2024 Address:[address] [place] [address] [id number] Pcp:Pearl Garcia Subjective: * Chief Complaints: * [...] DPM Date:?0 08/15/2024 Generated for Braeden boyce/Farandyg/eTransmitting on:?11/19/2024 06:08 PM EDT
--- OUTSIDE RECORDS SUMMARY | 2024-11-19 18:09 | XMS_ITS | Encounter Summary ---
Author Organization [facility] Address [address] [place] [address] Care Team Providers Care C T Tech Name Role Phone Uday Sheehan Primary Care Provider [phone] Encounter Details Date Type Department Care Team (Late st Contact Info) Description 03/17/2024 Lab Requisition [facility] [address] [place] [address] Cecilio Bautista PA [address] [place] [address] Acute respiratory failure with hypoxia Social History [...] this encounter Procedures * Due to [place] [employer] law, this organization might not be sharing negative HIV tests. Procedure Name Priority Date/Time Associated Diagnosis Comments C DIFF TOXIN B PCR W/REFLEX TO GDH & TOXIN (AMBULATORY) [facility] Routine 03/17/2024 7:46 AM EDT Acute respiratory failure with hypoxia (HCC) documented in this encounter Results * Due to [facility] law, this organization might not be sharing negative HIV tests. * C diff Toxin B PCR w/Reflex to GDH & Toxin (03/17/2024 7:46 AM EDT) C diff PCR Not Detected Not Detected [facility] [employer] 03/17/2024 9:01 AM EDT [facility] Stool Rectal route / Unknown 03/17/2024 7:46 AM EDT 03/17/2024 7:46 AM EDT Narrative [facility] - 03/17/2024 9:01 AM EDT Methodology: Real-time polymerase chain reaction (PCR) to detect the toxin B gene of toxigenic Clostridioides difficile (C. difficile) in unformed (liquid or soft) stool specimens obtained from patients suspected of having C. difficile infections (CDI). Cec[facility] BODY FLUIDS AND STOOLS O RDERABLES Final Result Performing Organization Address City/State/[facility] Co de Phone Number [facility] [address] [place] [address], documented in this encounter Visit Diagnoses Diagnosis [...] documented as of this encounter Care Teams C T Tech Relationship Specialty Start Date End Date Uday Sheehan [address] [place] [address] [place] [address] PCP - General Internal Medicine 03/27/24 documented as of this encounter
--- OUTSIDE RECORDS SUMMARY | 2024-11-19 18:09 | XMS_ITS | Encounter Summary ---
Author Organization [facility] Address [address] [place] [address] Care Team Providers Care Car Shakeout Operator Name Role Phone Uday Sheehan Primary Care Provider Encounter Details Date Type Department Care Team (Late st Contact Info) Description 03/16/2024 Lab Requisition [facility] Lab [address] [place] [address] Cecilio Bautista PA [address] [place] [address] Acute respiratory failure with hypoxia; No diagnosis [...] this encounter Procedures * Due to [employer] law, this organization might not be sharing negative HIV tests. Procedure Name Priority Date/Time Associated Diagnosis Comments VANCOMYCIN, TROUGH Routine 03/16/2024 11 :54 AM EDT Acute respiratory failure with hypoxia (HCC) No diagnosis documented in this encounter Results * Due to [place] [employer] law, this organization might not be sharing negative HIV tests. * (ABNORMAL) Vancomycin, Trough (03/16/2024 11:54 AM EDT) Vancomycin Trough 8.2(L) 10.0 - 20.0 ug/mL 03/16/2024 1:58 PM EDT [facility] Blood Structure of peripheral vein / Unknown 03/16/2024 11:54 AM EDT 03/16/2024 11:54 AM EDT Cecilio ZHU LAB BLOOD ORDERABLES Final R esult [facility] [address] [place] [address], [place] [phone] documented in this encounter Visit Diagnoses Diagnosis [...] as of this encounter Care Teams Car Shakeout Operator Relationship Specialty Start Date End Date Uday Sheehan [address] [place] [address] [place] [address] PCP - General Internal Medicine 03/27/24 documented as of this encounter
--- OUTSIDE RECORDS SUMMARY | 2024-11-19 18:09 | XMS_ITS | Encounter Summary ---
Author Organization [facility] Address [address] [place] [address] Care Team Providers Care Blacksmith Helper Name Role Phone Uday Sheehan Primary Care Provider [phone] Encounter Details Date Type Department Care Team (Late st Contact Info) Description 03/11/2024 Lab Requisition [facility] [address] [place] [address] [phone] Valarie Pierson MD [address] [place] [id number] Acute and chronic respiratory failure with hypoxia; [...] documented as of this encounter Care Teams Blacksmith Helper Relationship Specialty Start Date End Date Uday Sheehan [address] [place] [address] dr Donna Thompson, ALEC [address] PCP - General Internal Medicine 03/27/24 documented as of this encounter
--- OUTSIDE RECORDS SUMMARY | 2024-11-19 18:09 | XMS_ITS | Clinical Summary ---
Author Organization [facility], Address [address] [place] [address] [place] [address] Phone Care Team Providers Care Host And Hostess Name Role Phone Uday Sheehan MD Primary Care Provider [phone] Allergies Active Allergy Reactions Criticality Noted Date [...] age to complete this topic Insurance Medicare [facility] Medicare [facility] Medicare [facility] Care Teams Host And Hostess Relationship Specialty Start Date End Date Uday Sheehan MD [address] SMYRNA MILLS MD PCP - General 05/14/19
--- OUTSIDE RECORDS SUMMARY | 2024-11-19 18:09 | XMS_ITS | Encounter Summary ---
Author Organization [facility] Address [address] [place] [address] Care Team Providers Care Loan Workout Officer Name Role Phone Uday Sheehan Primary Care Provider [phone] Encounter Details Date Type Department Care Team (Late st Contact Info) Description 03/08/2024 Lab Requisition [facility] Lab [address] [place] [address] Lidia Barry, CB [address] [place] [address] Acute respiratory failure with hypoxia; No diagnosis [...] SHIGA TOXIN ANTIGENS (LAB ONLY REFLEX) - [facility] Routine 03/08/2024 9:28 AM EDT Acute [...] Shiga Toxin Antigens (Lab only Reflex) - [facility] (03/08/2024 9:28 AM EDT) [facility] Toxin 1 Negative Negative [facility] 03/09/2024 9:37 AM EDT [facility] Toxin 2 Negative Negative [facility] 03/09/2024 9:37 AM EDT [facility] Stool Rectal route / Unknown Non-Blood Collection / Unknown 03/08/2024 9:28 AM EDT 03/08/2024 9:28 AM EDT us Lidia Barry RADIATION ONCOLOGY THERAPIST LAB MICROBIOLOGY - GENERAL O RDERABLES Final Result Performing Organization Address [facility] Co de Phone Number [facility] [address] [place] [address] [address] [place] [address], [place] [phone] * Stool Culture (03/08/2024 9:28 AM EDT) Pathologist [facility] Stool Culture Normal stool nohemi: no E. coli O157, Salmonella, Shigella, or Campylobacter isolated [facility] 03/11/2024 8:47 AM EDT [facility] Stool Rectal route / Unknown Non-Blood Collection / Unknown 03/08/2024 9:28 AM EDT 03/08/2024 9:28 AM EDT us Lidia Barry RADIATION ONCOLOGY THERAPIST LAB MICROBIOLOGY - GENERAL O RDERABLES Final Result [facility] [address] [facility] [address] [place] [address], * (ABNORMAL) CBC Auto Differential (03/08/2024 9:28 AM EDT) WBC 9.4 4.8 - 10.8 10*3/uL 03/08/2024 9:58 AM EDT [facility] RBC 3.27(L) 4.70 - 6.10 10*6/uL 03/08/2024 9:58 AM EDT [facility] Hemoglobin 9.1(L) 13.7 - 16.5 g/dL 03/08/2024 9:58 AM EDT [facility] Hematocrit 28.1(L) 40.5 - 48.5 % 03/08/2024 9:58 AM EDT [facility] MCV 85.9 80.0 - 94.0 fL 03/08/2024 9:58 AM EDT [facility] MCH 27.8 26.0 - 34.0 pg 03/08/2024 9:58 AM EDT [facility] MCHC 32.4 31.0 - 36.0 g/dL 03/08/2024 9:58 AM EDT [facility] RDW 15.4(H) 12.0 - 15.0 % 03/08/2024 9:58 AM EDT [facility] RDW Standard Deviation 48.1(H) 35.1 - 43.9 fL 03/08/2024 9:58 AM EDT [facility] Platelets 144 140 - 440 10*3/uL 03/08/2024 9:58 AM EDT [facility] MPV 10.9 9.4 - 12.4 fL 03/08/2024 9:58 AM EDT [facility] Neutrophil % 58.0 50.0 - 75.0 % 03/08/2024 9:58 AM EDT [facility] Immature Grans % 0.6 0.0 - 0.9 % 03/08/2024 9:58 AM EDT [facility] Lymphocyte % 26.8 20.0 - 44.0 % 03/08/2024 9:58 AM EDT [facility] Monocyte % 8.6 0.0 - 14.0 % 03/08/2024 9:58 AM EDT [facility] Eosinophil % 5.7(H) 0.0 - 5.0 % 03/08/2024 9:58 AM EDT [facility] Basophil % 0.3 0.0 - 2.0 % 03/08/2024 9:58 AM EDT [facility] Neutrophil # 5.44 1.80 - 7.70 10*3/uL 03/08/2024 9:58 AM EDT [facility] Immature Grans # 0.06(H) 0.00 - 0.03 10*3/uL 03/08/2024 9:58 AM EDT [facility] Lymphocyte # 2.50 1.00 - 4.75 10*3/uL 03/08/2024 9:58 AM EDT [facility] Monocyte # 0.80 0.00 - 6.00 10*3/uL 03/08/2024 9:58 AM EDT [facility] Eosinophil # 0.50 0.00 - 0.80 10*3/uL 03/08/2024 9:58 AM EDT [facility] Basophil # <0.03 0.00 - 0.20 10*3/uL 03/08/2024 9:58 AM EDT [facility] nRBC % 0.0 0 - 0 /100 WBCs 03/08/2024 9:58 AM EDT [facility] nRBC # <0.01 0.00 - 0.13 10*3/uL 03/08/2024 9:58 AM EDT [facility] Blood Structure of peripheral vein / Unknown Venipuncture / Unknown 03/08/2024 9:28 AM EDT 03/08/2024 9:28 AM EDT us Lidia Barry NP LAB BLOOD ORDERABLES Final R esult Performing Organization Address City/State/[facility] Co de Phone Number [facility] [address] [address], [place] [phone] * Magnesium (03/08/2024 9:28 AM EDT) MG 1.8 1.5 - 2.5 mg/dL 03/08/2024 10:10 AM EDT [facility] Blood Structure of peripheral vein / Unknown Venipuncture / Unknown 03/08/2024 9:28 AM EDT 03/08/2024 9:28 AM EDT Lidia Barry RADIATION ONCOLOGY THERAPIST LAB BLOOD ORDERABLES Final R esult Performing Organization Address [facility] Co de Phone Number [facility] [address] [address], [place] [phone] * (ABNORMAL) Comprehensive Metabolic Panel (03/08/2024 9:28 AM EDT) NA 138 136 - 145 mmol/L 03/08/2024 10:10 AM EDT [facility] K 3.8 3.5 - 5.1 mmol/L 03/08/2024 10:10 AM EDT [facility] Cl 104 98 - 109 mmol/L 03/08/2024 10:10 AM EDT [facility] CO2 23 23 - 32 mmol/L 03/08/2024 10:10 AM EDT [facility] Anion Gap 15 >=0 03/08/2024 10:10 AM EDT [facility] Glucose 107(H) 60 - 99 mg/dL 03/08/2024 10:10 AM EDT [facility] Creatinine 1.20(H) 0.50 - 1.12 mg/dL 03/08/2024 10:10 AM EDT [facility] Calcium 9.1 8.4 - 10.4 mg/dL 03/08/2024 10:10 AM EDT [facility] Total Protein 6.5(L) 6.6 - 8.7 g/dL 03/08/2024 10:10 AM EDT [facility] Albumin 3.2(L) 3.5 - 5.0 g/dL 03/08/2024 10:10 AM EDT [facility] Bilirubin, Total 0.5 0.2 - 1.2 mg/dL 03/08/2024 10:10 AM EDT [facility] Alkaline Phosphatase 111 40 - 129 U/L 03/08/2024 10:10 AM EDT [facility] AST 29 0 - 40 U/L 03/08/2024 10:10 AM EDT [facility] ALT 34 <=41 U/L 03/08/2024 10:10 AM EDT [facility] BUN 27(H) 8 - 23 mg/dL 03/08/2024 10:10 AM EDT [facility] eGFR 60 >=60 mL/min/1. 73m2 03/08/2024 10:10 AM EDT [facility] Comment:The estimated glomer ular filtration [...] - 4.2 g/dL 03/08/2024 10:10 AM EDT [facility] A/G Ratio 1.0(L) 1.5 - 3.0 03/08/2024 10:10 AM EDT [facility] Blood Structure of peripheral vein / Unknown Venipuncture / Unknown 03/08/2024 9:28 AM EDT 03/08/2024 9:28 AM EDT us Lidia [place]ville RADIATION ONCOLOGY THERAPIST LAB BLOOD ORDERABLES Final R esult [facility] [address] [place] [address], documented in this encounter Visit Diagnoses Diagnosis [...] documented as of this encounter Care Teams Loan Workout Officer Relationship Specialty Start Date End Date Uday Sheehan [address] [place] [address] [place] [address] PCP - General Internal Medicine 03/27/24 documented as of this encounter
--- OUTSIDE RECORDS SUMMARY | 2024-11-19 18:09 | XMS_ITS | Encounter Summary ---
Author Organization [facility] Address [address] [place] [address] Phone Care Team Providers Care Metal Engraver Name Role Phone Uday Sheehan MD Primary Care Provider [phone] Encounter Details Date Type Department Care Team (Late st Contact Info) Description 09/08/2023 Documentation Only [facility], [address] [place] [address] Chapis BailonEL [place], [place] [address] [place] [address] Social History Tobacco Use Types [...] on filedocumented in this encounter Care Teams Metal Engraver Relationship Specialty Start Date End Date Uday Sheehan MD [address] [place], [place] PCP - General 05/14/19 documented as of this encounter
--- OUTSIDE RECORDS SUMMARY | 2024-11-19 18:09 | XMS_ITS | Patient Health Record ---
Author Organization [facility] Address [address] [place] [address] Care Team Providers Care Kitchen Bath Designer Name Role Phone Pearl Garcia Primary Care Provider Lucila Phillip Unavailable [phone] Reason For Referral No Information Encounters Encounter Location Date Provider Diagnosis [facility] [address] [place] [address] 08/08/2024 Lucila Kapoor Plan Of Treatment No Information Insurance Providers Payer Name Payer Address Payer Phone Subscriber Number Group Number Insured Name Patient Relationship to Insured Coverage Start Date Coverage End Date Medicare National [facility] [address] [place] [address] [id number] [place] i Self - patient is the insured [employer] [address] [place] [address] [id number] [place] i Self - patient is the insured
--- OUTSIDE RECORDS SUMMARY | 2024-11-19 18:09 | XMS_ITS | Encounter Summary ---
Author Organization [facility] Address [address] [place] [address] Care Team Providers Care Internship Coordinator Name Role Phone Uday Sheehan MD Primary Care Provider [phone] Encounter Details Date Type Department Care Team (Late st Contact Info) Description 10/27/2024 Lab Requisition [facility] [address] [facility] [place] [address] Tabby Bledsoe MD [address] [address] Bacteremia Social History Tobacco Use Types Packs/Day [...] documented as of this encounter Care Teams Internship Coordinator Relationship Specialty Start Date End Date Uday Sheehan MD [address] [place] [address] PCP - General Bridges And Buildings Supervisor 12/19/16 documented as of this encounter
--- OUTSIDE RECORDS SUMMARY | 2024-11-19 18:09 | XMS_ITS | Encounter Summary ---
Author Organization [facility] Address [address] [place] [address] Care Team Providers Care Molding Machine Operator Helper Name Role Phone Uday Sheehan Primary Care Provider [phone] Encounter Details Date Type Department Care Team (Late st Contact Info) Description 03/11/2024 Lab Requisition [facility] Lab [address] [place] [address] Lidia Barry, CB [address] [place] [address] Acute and chronic respiratory failure with hypoxia; [...] after 5 days 03/16/2024 3:06 PM EDT [facility] Blood Structure of peripheral vein / Unknown Venipuncture / Unknown 03/11/2024 1:30 PM EDT 03/11/2024 2:34 PM EDT us Frazierkevin Barry LAB MICROBIOLOGY - GENERAL O RDERABLES Final Result Performing Organization Address City/[facility]/ZIP Co de Phone Number [facility] [address] [address], [place] [phone] * Blood Culture (03/11/2024 1:30 PM EDT) Blood Culture No growth after 5 days 03/16/2024 3:06 PM EDT [facility] Blood Structure of peripheral vein / Unknown Venipuncture / Unknown 03/11/2024 1:30 PM EDT 03/11/2024 2:34 PM EDT [facility] MICROBIOLOGY - GENERAL O RDERABLES Final Result Performing Organization Address [facility]/ZIP Co de Phone Number [facility] [address] [address], [place] [phone] * (ABNORMAL) Microscopic Urinalysis Only (03/11/2024 11:13 AM EDT) RBC, Urine 40-50(A) None Seen, 0-2 /HPF 03/11/2024 3:06 PM EDT [facility] WBC, Urine 20-30(A) None Seen, 0-2 /HPF 03/11/2024 3:06 PM EDT [facility] Squamous Epithelial Cells, Urine 3-5 /HPF 03/11/2024 3:06 PM EDT [facility] Calcium Oxalate Crystals, Urine Moderate /HPF 03/11/2024 3:06 PM EDT [facility] Bacteria, Urine Moderate(A) None Seen /HPF 03/11/2024 3:06 PM EDT [facility] Urine Urine specimen collection, clean catch / Unknown Non-Blood Collection / Unknown 03/11/2024 11:13 AM EDT 03/11/2024 2:45 PM EDT us Frazierkevin [place] BATTERY CONTAINER INSPECTOR LAB URINE ORDERABLES Final R esult Performing Organization Address [facility] Co de Phone Number [facility] [address] [address], [place] [phone] * (ABNORMAL) Urine Culture, Routine (03/11/2024 11:13 AM EDT) Urine Culture >100,000 CFU/mL Pseudomonas aeruginosa(A) MINIMUM INHIBITORY CONCENTRATION ([place]) 03/15/2024 8:12 AM EDT [facility] Urine Urine specimen collection, [...] values in mcg/mL . us Lidia Barry BATTERY CONTAINER INSPECTOR LAB MICROBIOLOGY - GENERAL O RDERABLES Final Result Performing Organization Address [facility] Co de Phone Number [facility] [address] [address], [place] [phone] * Lactic Acid, Plasma (03/11/2024 11:13 AM EDT) Lactic Acid 0.8 0.5 - 2.0 mmol/L 03/11/2024 3:02 PM EDT [facility] Blood Structure of peripheral vein / Unknown 03/11/2024 11:13 AM EDT 03/11/2024 2:40 PM EDT us Lidia [facility] BATTERY CONTAINER INSPECTOR LAB BLOOD ORDERABLES Final R esult Performing Organization Address [facility]/ZIP Co de Phone Number [facility] [address] [address], [place] [phone] * Magnesium (03/11/2024 11:13 AM EDT) MG 1.8 1.5 - 2.5 mg/dL 03/11/2024 3:03 PM EDT [facility] Blood Structure of peripheral vein / Unknown Venipuncture / Unknown 03/11/2024 11:13 AM EDT 03/11/2024 2:34 PM EDT us Lidia [facility] BATTERY CONTAINER INSPECTOR LAB BLOOD ORDERABLES Final R esult Performing Organization Address [facility] Co de Phone Number [facility] [address] [address], [place] [phone] * (ABNORMAL) Comprehensive Metabolic Panel (03/11/2024 11:13 AM EDT) NA 136 136 - 145 mmol/L 03/11/2024 3:03 PM EDT [facility] K 3.7 3.5 - 5.1 mmol/L 03/11/2024 3:03 PM EDT [facility] Cl 101 98 - 109 mmol/L 03/11/2024 3:03 PM EDT [facility] CO2 24 23 - 32 mmol/L 03/11/2024 3:03 PM EDT [facility] Anion Gap 15 >=0 03/11/2024 3:03 PM EDT [facility] Glucose 123(H) 60 - 99 mg/dL 03/11/2024 3:03 PM EDT [facility] Creatinine 1.26(H) 0.50 - 1.12 mg/dL 03/11/2024 3:03 PM EDT [facility] Calcium 8.9 8.4 - 10.4 mg/dL 03/11/2024 3:03 PM EDT [facility] Total Protein 5.6(L) 6.6 - 8.7 g/dL 03/11/2024 3:03 PM EDT [facility] Albumin 3.2(L) 3.5 - 5.0 g/dL 03/11/2024 3:03 PM EDT [facility] Bilirubin, Total 0.5 0.2 - 1.2 mg/dL 03/11/2024 3:03 PM EDT [facility] Alkaline Phosphatase 103 40 - 129 U/L 03/11/2024 3:03 PM EDT [facility] AST 73(H) 0 - 40 U/L 03/11/2024 3:03 PM EDT [facility] ALT 73(H) <=41 U/L 03/11/2024 3:03 PM EDT [facility] BUN 16 8 - 23 mg/dL 03/11/2024 3:03 PM EDT [facility] eGFR 56(L) >=60 mL/min/1. 73m2 03/11/2024 3:03 PM EDT [facility] Comment:The estimated glomer ular filtration [...] - 4.2 g/dL 03/11/2024 3:03 PM EDT [facility] A/G Ratio 1.3(L) 1.5 - 3.0 03/11/2024 3:03 PM T [facility] Blood Structure of peripheral vein / Unknown Venipuncture / Unknown 03/11/2024 11:13 AM EDT 03/11/2024 2:34 PM EDT Lidia Barry BATTERY CONTAINER INSPECTOR LAB BLOOD ORDERABLES Final R esult [facility] [address] [facility] [address] [place] [address], [place] [phone] * (ABNORMAL) CBC Auto Differential (03/11/2024 11:13 AM EDT) WBC 8.5 4.8 - 10.8 10*3/uL 03/11/2024 2:44 PM EDT [facility] RBC 3.04(L) 4.70 - 6.10 10*6/uL 03/11/2024 2:44 PM EDT [facility] Hemoglobin 8.6(L) 13.7 - 16.5 g/dL 03/11/2024 2:44 PM EDT [facility] Hematocrit 26.1(L) 40.5 - 48.5 % 03/11/2024 2:44 PM EDT [facility] MCV 85.9 80.0 - 94.0 fL 03/11/2024 2:44 PM EDT [facility] MCH 28.3 26.0 - 34.0 pg 03/11/2024 2:44 PM EDT [facility] MCHC 33.0 31.0 - 36.0 g/dL 03/11/2024 2:44 PM EDT [facility] RDW 14.9 12.0 - 15.0 % 03/11/2024 2:44 PM EDT [facility] RDW Standard Deviation 47.3(H) 35.1 - 43.9 fL 03/11/2024 2:44 PM EDT [facility] Platelets 131(L) 140 - 440 10*3/uL 03/11/2024 2:44 PM EDT [facility] MPV 10.6 9.4 - 12.4 fL 03/11/2024 2:44 PM EDT [facility] Neutrophil % 65.2 50.0 - 75.0 % 03/11/2024 2:44 PM EDT [facility] Immature Grans % 0.4 0.0 - 0.9 % 03/11/2024 2:44 PM EDT [facility] Lymphocyte % 20.9 20.0 - 44.0 % 03/11/2024 2:44 PM EDT [facility] Monocyte % 10.9 0.0 - 14.0 % 03/11/2024 2:44 PM EDT [facility] Eosinophil % 2.2 0.0 - 5.0 % 03/11/2024 2:44 PM EDT [facility] Basophil % 0.4 0.0 - 2.0 % 03/11/2024 2:44 PM EDT [facility] Neutrophil # 5.51 1.80 - 7.70 10*3/uL 03/11/2024 2:44 PM EDT [facility] Immature Grans # 0.03 0.00 - 0.03 10*3/uL 03/11/2024 2:44 PM EDT [facility] Lymphocyte # 1.80 1.00 - 4.75 10*3/uL 03/11/2024 2:44 PM EDT [facility] Monocyte # 0.90 0.00 - 6.00 10*3/uL 03/11/2024 2:44 PM EDT [facility] Eosinophil # 0.20 0.00 - 0.80 10*3/uL 03/11/2024 2:44 PM EDT [facility] Basophil # <0.03 0.00 - 0.20 10*3/uL 03/11/2024 2:44 PM EDT [facility] nRBC % 0.0 0 - 0 /100 WBCs 03/11/2024 2:44 PM EDT [facility] nRBC # <0.01 0.00 - 0.13 10*3/uL 03/11/2024 2:44 PM EDT [facility] Blood Structure of peripheral vein / Unknown Venipuncture / Unknown 03/11/2024 11:13 AM EDT 03/11/2024 2:34 PM EDT [facility] BATTERY CONTAINER INSPECTOR LAB BLOOD ORDERABLES Final R esult Performing Organization Address [facility]/ZIP Co de Phone Number [facility] [address] [address], [place] [phone] * Barcenas Top, Urine (03/11/2024 11:13 AM EDT) Extra Tube Hold for add-ons. 03/11/2024 4:05 PM EDT [facility] Comment:Auto resulted. Urine Urine specimen collection, clean catch / Unknown Non-Blood Collection / Unknown 03/11/2024 11:13 AM EDT 03/11/2024 2:30 PM EDT [facility] BATTERY CONTAINER INSPECTOR LAB URINE ORDERABLES Final R esult Performing Organization Address [facility] Co de Phone Number [facility] [address] [address], [place] [phone] * (ABNORMAL) Urinalysis W/Reflex to Microscopic & Culture (03/11/2024 11:13 AM EDT) Color, Urine Dark Yellow Yellow 03/11/2024 2:45 PM EDT [facility] Clarity, Urine Turbid(A) Clear 03/11/2024 2:45 PM EDT [facility] Specific [place], Urine 1.020 1.005 - 1.030 03/11/2024 2:45 PM EDT [facility] pH, Urine 5.5 5.0 - 8.0 03/11/2024 2:45 PM EDT [facility] Protein, Urine 100(A) Negative mg/dL 03/11/2024 2:45 PM EDT [facility] Glucose, Urine Negative Negative mg/dL 03/11/2024 2:45 PM EDT [facility] Ketones, Urine Trace(A) Negative mg/dL 03/11/2024 2:45 PM EDT [facility] Bilirubin, Urine Negative Negative 03/11/2024 2:45 PM EDT [facility] Blood, Urine Large(A) Negative 03/11/2024 2:45 PM EDT [facility] Nitrite, Urine Positive(A) Negative 03/11/2024 2:45 PM EDT [facility] Urobilinogen, Urine 1.0 0.2 - 1.0 E.U./dL 03/11/2024 2:45 PM EDT [facility] Leukocyte Esterase, Urine Moderate(A) Negative 03/11/2024 2:45 PM EDT [facility] Urine Urine specimen collection, clean catch / Unknown Non-Blood Collection / Unknown 03/11/2024 11:13 AM EDT 03/11/2024 2:30 PM EDT us [facility] LAB URINE ORDERABLES Final R esult Performing Organization Address City/State/[facility] Co de Phone Number [facility] [address] [place] [address], [place] [phone] documented in this encounter Visit Diagnoses Diagnosis [...] documented as of this encounter Care Teams Molding Machine Operator Helper Relationship Specialty Start Date End Date Uday Sheehan [address] [place] [id number] [place] [id number] PCP - General Internal Medicine 03/27/24 documented as of this encounter
--- OUTSIDE RECORDS SUMMARY | 2024-11-19 18:09 | XMS_ITS | Encounter Summary ---
Author Organization [facility] Address [address] [place] [address] Care Team Providers Care Social Services Director Name Role Phone Uday Sheehan Primary Care Provider [phone] Encounter Details Date Type Department Care Team (Late st Contact Info) Description 03/15/2024 Lab Requisition [facility] [address] [place] [address] Lidia Barry, CB [address] [place] [address] Acute and chronic respiratory failure with hypoxia; [...] this encounter Procedures * Due to [place] state law, this organization might not be [...] this encounter Results * Due to [place] state law, this organization might not be sharing negative HIV tests. * (ABNORMAL) CBC Auto Differential (03/15/2024 8:31 AM EDT) WBC 7.1 4.8 - 10.8 10*3/uL 03/15/2024 9:07 AM EDT [facility] RBC 3.05(L) 4.70 - 6.10 10*6/uL 03/15/2024 9:07 AM EDT [facility] Hemoglobin 8.5(L) 13.7 - 16.5 g/dL 03/15/2024 9:07 AM EDT [facility] Hematocrit 26.2(L) 40.5 - 48.5 % 03/15/2024 9:07 AM EDT [facility] MCV 85.9 80.0 - 94.0 fL 03/15/2024 9:07 AM EDT [facility] MCH 27.9 26.0 - 34.0 pg 03/15/2024 9:07 AM EDT [facility] MCHC 32.4 31.0 - 36.0 g/dL 03/15/2024 9:07 AM EDT [facility] RDW 15.2(H) 12.0 - 15.0 % 03/15/2024 9:07 AM EDT [facility] RDW Standard Deviation 47.7(H) 35.1 - 43.9 fL 03/15/2024 9:07 AM EDT [facility] Platelets 149 140 - 440 10*3/uL 03/15/2024 9:07 AM EDT [facility] MPV 10.3 9.4 - 12.4 fL 03/15/2024 9:07 AM EDT [facility] Neutrophil % 59.2 50.0 - 75.0 % 03/15/2024 9:07 AM EDT [facility] Immature Grans % 0.4 0.0 - 0.9 % 03/15/2024 9:07 AM EDT [facility] Lymphocyte % 24.8 20.0 - 44.0 % 03/15/2024 9:07 AM EDT [facility] Monocyte % 10.9 0.0 - 14.0 % 03/15/2024 9:07 AM EDT [facility] Eosinophil % 4.1 0.0 - 5.0 % 03/15/2024 9:07 AM EDT [facility] Basophil % 0.6 0.0 - 2.0 % 03/15/2024 9:07 AM EDT [facility] Neutrophil # 4.23 1.80 - 7.70 10*3/uL 03/15/2024 9:07 AM EDT [facility] Immature Grans # 0.03 0.00 - 0.03 10*3/uL 03/15/2024 9:07 AM EDT [facility] Lymphocyte # 1.80 1.00 - 4.75 10*3/uL 03/15/2024 9:07 AM EDT [facility] Monocyte # 0.80 0.00 - 6.00 10*3/uL 03/15/2024 9:07 AM EDT [facility] Eosinophil # 0.30 0.00 - 0.80 10*3/uL 03/15/2024 9:07 AM EDT [facility] Basophil # <0.03 0.00 - 0.20 10*3/uL 03/15/2024 9:07 AM EDT [facility] nRBC % 0.0 0 - 0 /100 WBCs 03/15/2024 9:07 AM EDT [facility] nRBC # <0.01 0.00 - 0.13 10*3/uL 03/15/2024 9:07 AM EDT [facility] Blood Structure of peripheral vein / Unknown 03/15/2024 8:31 AM EDT 03/15/2024 8:31 AM EDT us Lidia [facility] USER EXPERIENCE ARCHITECT LAB BLOOD ORDERABLES Final R esult Performing Organization Address City/[facility]/ZIP Co de Phone Number [facility] [address] [address], [place] [phone] * Ammonia (03/15/2024 8:31 AM EDT) Ammonia 17 16 - 60 umol/L 03/15/2024 8:55 AM EDT [facility] Blood Structure of peripheral vein / Unknown 03/15/2024 8:31 AM EDT 03/15/2024 8:31 AM EDT [facility] USER EXPERIENCE ARCHITECT LAB BLOOD ORDERABLES Final R esult Performing Organization Address City/[facility]/ZIP Co de Phone Number [facility] [address] [address], [place] [phone] * (ABNORMAL) Comprehensive Metabolic Panel (03/15/2024 8:31 AM EDT) NA 137 136 - 145 mmol/L 03/15/2024 9:35 AM EDT [facility] K 3.7 3.5 - 5.1 mmol/L 03/15/2024 9:35 AM EDT [facility] Cl 98 98 - 109 mmol/L 03/15/2024 9:35 AM EDT [facility] CO2 31 23 - 32 mmol/L 03/15/2024 9:35 AM EDT [facility] Anion Gap 12 >=0 03/15/2024 9:35 AM EDT [facility] Glucose 108(H) 60 - 99 mg/dL 03/15/2024 9:35 AM EDT [facility] Creatinine 1.07 0.50 - 1.12 mg/dL 03/15/2024 9:35 AM EDT [facility] Calcium 9.0 8.4 - 10.4 mg/dL 03/15/2024 9:35 AM EDT [facility] Total Protein 5.8(L) 6.6 - 8.7 g/dL 03/15/2024 9:35 AM EDT [facility] Albumin 3.2(L) 3.5 - 5.0 g/dL 03/15/2024 9:35 AM EDT [facility] Bilirubin, Total 0.4 0.2 - 1.2 mg/dL 03/15/2024 9:35 AM EDT [facility] Alkaline Phosphatase 112 40 - 129 U/L 03/15/2024 9:35 AM EDT [facility] AST 28 0 - 40 U/L 03/15/2024 9:35 AM EDT [facility] Comment:[place] REVIEWED ALT 35 <=41 U/L 03/15/2024 9:35 AM EDT [facility] BUN 16 8 - 23 mg/dL 03/15/2024 9:35 AM EDT [facility] eGFR 68 >=60 mL/min/1. 73m2 03/15/2024 9:35 AM EDT [facility] Comment:The [...] - 4.2 g/dL 03/15/2024 9:35 AM EDT [facility] A/G Ratio 1.2(L) 1.5 - 3.0 03/15/2024 9:35 AM EDT [facility] Blood Structure of peripheral vein / Unknown 03/15/2024 8:31 AM EDT 03/15/2024 8:31 AM EDT us Lidia [place] USER EXPERIENCE ARCHITECT LAB BLOOD ORDERABLES Final R esult [facility] [address] [place] [address], documented in this encounter Visit Diagnoses Diagnosis [...] documented as of this encounter Care Teams Social Services Director Relationship Specialty Start Date End Date Uday Sheehan [address] [place] [address] [place] [address] PCP - General Internal Medicine 03/27/24 documented as of this encounter
--- OUTSIDE RECORDS SUMMARY | 2024-11-19 18:09 | XMS_ITS | Encounter Summary ---
Author Organization [facility] Address [address] [place] [address] Care Team Providers Care Sawyer Cork Slabs Name Role Phone Uday Sheehan MD Primary Care Provider [phone] Encounter Details Date Type Department Care Team (Late st Contact Info) Description 11/01/2024 Lab Requisition [facility] [address] [place] [address] Tabby Bledsoe MD [address] [address] Bacteremia Social History Tobacco Use Types Packs/Day [...] LAB CHEMISTRY METHOD 11/04/2024 7:30 PM EDT [facility] Potassium 3.9 3.5 - 5.5 mmol/L LAB CHEMISTRY METHOD 11/04/2024 7:30 PM [facility] Chloride 110 96 - 110 mmol/L LAB CHEMISTRY METHOD 11/04/2024 7:30 PM [facility] CO2 25 21 - 32 mmol/L LAB CHEMISTRY METHOD 11/04/2024 7:30 PM [facility] Anion Gap 7 3 - 11 LAB CHEMISTRY METHOD 11/04/2024 7:30 PM [facility] Glucose 113(H) 70 - 100 mg/dL LAB CHEMISTRY METHOD 11/04/2024 7:30 PM [facility] BUN 30(H) 5 - 25 mg/dL LAB CHEMISTRY METHOD 11/04/2024 7:30 PM [facility] Creatinine 1.06 0.70 - 1.30 mg/dL LAB CHEMISTRY METHOD 11/04/2024 7:30 PM [facility] eGFR 69 >=60 mL/min/1. 73m2 LAB CHEMISTRY METHOD 11/04/2024 7:30 PM [facility] Comment:Calculation based on the??Chronic Kidney Disease Epidemiology Collaboration (CKD-EPI) equation refit??without adjustment for race. BUN/Creatinine Ratio 28.3 LAB CHEMISTRY METHOD 11/04/2024 7:30 PM [facility] Calcium 7.6(L) 8.5 - 10.5 mg/dL LAB CHEMISTRY METHOD 11/04/2024 7:30 PM [facility] Blood Venous blood specimen / Unknown Venipuncture / Unknown 11/04/2024 9:52 AM EDT 11/04/2024 11:40 AM EDT us Tabby Bledsoe MD LAB BLOOD ORDERABLES Fin al Result [facility] [address] [place] [address], * (ABNORMAL) Complete blood count (11/04/2024 9:52 AM EDT) [facility] WBC 5.6 4.8 - 10.8 K/mcL LAB HEMETOLOGY METHOD 11/04/2024 1:17 PM [facility] RBC 2.40(L) 4.50 - 5.50 M/mcL LAB HEMETOLOGY METHOD 11/04/2024 1:17 PM [facility] Hemoglobin 6.5(L) 13.5 - 17.5 g/dL LAB HEMETOLOGY METHOD 11/04/2024 1:17 PM [facility] Hematocrit 21.8(L) 42.0 - 54.0 % LAB HEMETOLOGY METHOD 11/04/2024 1:17 PM [facility] MCV 92.0 79.0 - 98.0 FL LAB HEMETOLOGY METHOD 11/04/2024 1:17 PM [facility] MCH 27.4 27.0 - 32.0 pcg LAB HEMETOLOGY METHOD 11/04/2024 1:17 PM [facility] MCHC 29.8(L) 32.0 - 37.0 g/dL LAB HEMETOLOGY METHOD 11/04/2024 1:17 PM [facility] RDW 17.2(H) 11.0 - 15.0 % LAB HEMETOLOGY METHOD 11/04/2024 1:17 PM [facility] Platelets 224 130 - 400 K/mcL LAB HEMETOLOGY METHOD 11/04/2024 1:17 PM [facility] MPV 9.8 7.0 - 11.0 FL LAB HEMETOLOGY METHOD 11/04/2024 1:17 PM [facility] NRBC 0.0 <1.0 % LAB HEMETOLOGY METHOD 11/04/2024 1:17 PM [facility] NRBC Absolute 0.00 <0.10 K/mcL LAB HEMETOLOGY METHOD 11/04/2024 1:17 PM EDT [facility] Blood Venous blood specimen / Unknown Venipuncture / Unknown 11/04/2024 9:52 AM EDT 11/04/2024 11:23 AM EDT us Tabby Bledsoe MD LAB BLOOD ORDERABLES Fin al Result [facility] [address] [place] [address], documented in this encounter Visit Diagnoses Diagnosis Bacteremia documented in this encounter Additional Health Concerns 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
--- OUTSIDE RECORDS SUMMARY | 2024-11-19 18:09 | XMS_ITS | Encounter Summary ---
Author Organization [facility] Address [address] [place] [address] Care Team Providers Care Board Machine Set Up Operator Name Role Phone Uday Sheehan MD Primary Care Provider [phone] Encounter Details Date Type Department Care Team (Late st Contact Info) Description 08/18/[address] [facility] - Main Lab [address] [place] [address] Tabby Bledsoe MD [address] [address] Bacteremia Social History Tobacco Use Types Packs/Day [...] LAB CHEMISTRY METHOD 08/19/2024 3:13 PM EST [facility] Potassium 4.0 3.5 - 5.5 mmol/L LAB CHEMISTRY METHOD 08/19/2024 3:13 PM [facility] Chloride 111(H) 96 - 110 mmol/L LAB CHEMISTRY METHOD 08/19/2024 3:13 PM [facility] CO2 25 21 - 32 mmol/L LAB CHEMISTRY METHOD 08/19/2024 3:13 PM [facility] Anion Gap 9 3 - 11 LAB CHEMISTRY METHOD 08/19/2024 3:13 PM [facility] Glucose 90 70 - 100 mg/dL LAB CHEMISTRY METHOD 08/19/2024 3:13 PM [facility] BUN 23 5 - 25 mg/dL LAB CHEMISTRY METHOD 08/19/2024 3:13 PM [facility] Creatinine 1.46(H) 0.70 - 1.30 mg/dL LAB CHEMISTRY METHOD 08/19/2024 3:13 PM [facility] eGFR 47(L) >=60 mL/min/1. 73m2 LAB CHEMISTRY METHOD 08/19/2024 3:13 PM [facility] Comment:Calculation based on the??Chronic Kidney Disease Epidemiology Collaboration (CKD-EPI) equation refit??without adjustment for race. BUN/Creatinine Ratio 15.8 LAB CHEMISTRY METHOD 08/19/2024 3:13 PM [facility] Calcium 8.3(L) 8.5 - 10.5 mg/dL LAB CHEMISTRY METHOD 08/19/2024 3:13 PM [facility] AST (SGOT) 19 10 - 42 unit/L LAB CHEMISTRY METHOD 08/19/2024 3:13 PM [facility] ALT (SGPT) 12 10 - 60 unit/L LAB CHEMISTRY METHOD 08/19/2024 3:13 PM [facility] Alkaline Phosphatase 88 42 - 121 unit/L LAB CHEMISTRY METHOD 08/19/2024 3:13 PM [facility] Total Protein 5.5(L) 6.0 - 8.0 g/dL LAB CHEMISTRY METHOD 08/19/2024 3:13 PM EST [facility] Albumin 1.5(L) 3.2 - 5.0 g/dL LAB CHEMISTRY METHOD 08/19/2024 3:13 PM [facility] Total Bilirubin 0.3 0.0 - 1.4 mg/dL LAB CHEMISTRY METHOD 08/19/2024 3:13 PM [facility] Blood Venous blood specimen / Unknown Venipuncture / Unknown 08/19/2024 8:46 AM EST 08/19/2024 12:22 PM EST us Tabby Bledsoe MD LAB BLOOD ORDERABLES Fin al Result [facility] [address] [place] [address], [place] [phone] * (ABNORMAL) Complete blood count (08/19/2024 8:46 AM EST) WBC 6.3 4.8 - 10.8 K/mcL LAB HEMETOLOGY METHOD 08/19/2024 1:38 PM [facility] RBC 2.80(L) 4.50 - 5.50 M/mcL LAB HEMETOLOGY METHOD 08/19/2024 1:38 PM [facility] Hemoglobin 7.5(L) 13.5 - 17.5 g/dL LAB HEMETOLOGY METHOD 08/19/2024 1:38 PM [facility] Hematocrit 25.6(L) 42.0 - 54.0 % LAB HEMETOLOGY METHOD 08/19/2024 1:38 PM [facility] MCV 92.4 79.0 - 98.0 FL LAB HEMETOLOGY METHOD 08/19/2024 1:38 PM [facility] MCH 27.1 27.0 - 32.0 pcg LAB HEMETOLOGY METHOD 08/19/2024 1:38 PM [facility] MCHC 29.3(L) 32.0 - 37.0 g/dL LAB HEMETOLOGY METHOD 08/19/2024 1:38 PM EST [facility] RDW 19.2(H) 11.0 - 15.0 % LAB HEMETOLOGY METHOD 08/19/2024 1:38 PM [facility] Platelets 289 130 - 400 K/mcL LAB HEMETOLOGY METHOD 08/19/2024 1:38 PM [facility] MPV 9.1 7.0 - 11.0 FL LAB HEMETOLOGY METHOD 08/19/2024 1:38 PM [facility] NRBC 0.0 <1.0 % LAB HEMETOLOGY METHOD 08/19/2024 1:38 PM [facility] NRBC Absolute 0.00 <0.10 K/mcL LAB HEMETOLOGY METHOD 08/19/2024 1:38 PM [facility] Blood Venous blood specimen / Unknown Venipuncture / Unknown 08/19/2024 8:46 AM EST 08/19/2024 12:22 PM EST Tabby Bledsoe MD LAB BLOOD ORDERABLES Fin al Result [facility] [address] [place] [address], documented in this encounter Visit Diagnoses Diagnosis Bacteremia documented in this encounter Additional Health Concerns Infection Onset Date Last Indicated Resolved Time ESBL 06/22/2024 06/22/2024 documented as of this encounter Care Teams Board Machine Set Up Operator Relationship Specialty Start Date End Date Uday Sheehan MD [address] [place] [address] Dr Donna [place] PCP - General Numerologist 12/19/16 documented as of this encounter
--- OUTSIDE RECORDS SUMMARY | 2024-11-19 18:09 | XMS_ITS ---
Author Organization [facility] Address [address] [place] [address] Care Team Providers Care Chemical Sprayer Name Role Phone Pearl Garcia Primary Care Provider Lucila Phillip [phone] REASON FOR VISIT Cancel Encounters Encounter Location Date Provider Diagnosis [facility] [address] [place] [address] 08/08/2024 Lucila Kapoor Plan Of Treatment No Information Progress Notes * Ramon ATKINSONDOB:1939 (84 yo M)Acc No.[id number]:08/08/2024 Patient:?Ramon ATKINSON :1940???Age:84 Y???Sex:Male Address: [address] [place], [address] * true * Date:? Generated for Printi ng/Faxing/eTransmitting on:?11/19/2024 06:08 PM EDT
--- OUTSIDE RECORDS SUMMARY | 2024-11-19 18:09 | XMS_ITS | Encounter Summary ---
Author Organization [facility] Address [address] [place] [address] Care Team Providers Care Range Examiner Name Role Phone Uday Sheehan Primary Care Provider [phone] Encounter Details Date Type Department Care Team (Late st Contact Info) Description 03/07/2024 Lab Requisition [facility] [address] [place] [address] Valarie Pierson MD [address] [place] [address] Acute and chronic respiratory failure with hypoxia; [...] encounter Procedures * Due to [place] state law, this organization might not be [...] encounter Results * Due to [place] state law, this organization might not be sharing negative HIV tests. * (ABNORMAL) CBC Auto Differential (03/07/2024 11:28 AM EDT) WBC 9.8 4.8 - 10.8 10*3/uL 03/07/2024 12:12 PM EDT [facility] RBC 3.39(L) 4.70 - 6.10 10*6/uL 03/07/2024 12:12 PM EDT [facility] Hemoglobin 9.4(L) 13.7 - 16.5 g/dL 03/07/2024 12:12 PM EDT [facility] Hematocrit 29.9(L) 40.5 - 48.5 % 03/07/2024 12:12 PM EDT [facility] MCV 88.2 80.0 - 94.0 fL 03/07/2024 12:12 PM EDT [facility] MCH 27.7 26.0 - 34.0 pg 03/07/2024 12:12 PM EDT [facility] MCHC 31.4 31.0 - 36.0 g/dL 03/07/2024 12:12 PM EDT [facility] RDW 15.5(H) 12.0 - 15.0 % 03/07/2024 12:12 PM EDT [facility] RDW Standard Deviation 50.0(H) 35.1 - 43.9 fL 03/07/2024 12:12 PM EDT [facility] Platelets 174 140 - 440 10*3/uL 03/07/2024 12:12 PM EDT [facility] MPV 10.5 9.4 - 12.4 fL 03/07/2024 12:12 PM EDT [facility] Neutrophil % 59.4 50.0 - 75.0 % 03/07/2024 12:12 PM EDT [facility] Immature Grans % 0.7 0.0 - 0.9 % 03/07/2024 12:12 PM EDT [facility] Lymphocyte % 23.8 20.0 - 44.0 % 03/07/2024 12:12 PM EDT [facility] Monocyte % 9.9 0.0 - 14.0 % 03/07/2024 12:12 PM EDT [facility] Eosinophil % 5.7(H) 0.0 - 5.0 % 03/07/2024 12:12 PM EDT [facility] Basophil % 0.5 0.0 - 2.0 % 03/07/2024 12:12 PM EDT [facility] Neutrophil # 5.82 1.80 - 7.70 10*3/uL 03/07/2024 12:12 PM EDT [facility] Immature Grans # 0.07(H) 0.00 - 0.03 10*3/uL 03/07/2024 12:12 PM EDT [facility] Lymphocyte # 2.30 1.00 - 4.75 10*3/uL 03/07/2024 12:12 PM EDT [facility] Monocyte # 1.00 0.00 - 6.00 10*3/uL 03/07/2024 12:12 PM EDT [facility] Eosinophil # 0.60 0.00 - 0.80 10*3/uL 03/07/2024 12:12 PM EDT [facility] Basophil # 0.10 0.00 - 0.20 10*3/uL 03/07/2024 12:12 PM EDT [facility] nRBC % 0.0 0 - 0 /100 WBCs 03/07/2024 12:12 PM EDT [facility] nRBC # <0.01 0.00 - 0.13 10*3/uL 03/07/2024 12:12 PM EDT [facility] Blood Structure of peripheral vein / Unknown Venipuncture / Unknown 03/07/2024 11:28 AM EDT 03/07/2024 11:28 AM EDT us Valarie Pierson MD LAB BLOOD ORDERABLES Final Res ult [facility] [address] [facility] [address] [place] [address], [place] [phone] * (ABNORMAL) Comprehensive Metabolic Panel (03/07/2024 11:28 AM EDT) NA 138 136 - 145 mmol/L 03/07/2024 12:30 PM EDT [facility] K 3.4(L) 3.5 - 5.1 mmol/L 03/07/2024 12:30 PM EDT [facility] Cl 104 98 - 109 mmol/L 03/07/2024 12:30 PM EDT [facility] CO2 23 23 - 32 mmol/L 03/07/2024 12:30 PM EDT [facility] Anion Gap 14 >=0 03/07/2024 12:30 PM EDT [facility] Glucose 135(H) 60 - 99 mg/dL 03/07/2024 12:30 PM EDT [facility] Creatinine 1.28(H) 0.50 - 1.12 mg/dL 03/07/2024 12:30 PM EDT [facility] Calcium 9.4 8.4 - 10.4 mg/dL 03/07/2024 12:30 PM EDT [facility] Total Protein 6.7 6.6 - 8.7 g/dL 03/07/2024 12:30 PM EDT [facility] Albumin 3.3(L) 3.5 - 5.0 g/dL 03/07/2024 12:30 PM EDT [facility] Bilirubin, Total 0.5 0.2 - 1.2 mg/dL 03/07/2024 12:30 PM EDT [facility] Alkaline Phosphatase 112 40 - 129 U/L 03/07/2024 12:30 PM EDT [facility] AST 31 0 - 40 U/L 03/07/2024 12:30 PM EDT [facility] ALT 36 <=41 U/L 03/07/2024 12:30 PM EDT [facility] BUN 35(H) 8 - 23 mg/dL 03/07/2024 12:30 PM EDT [facility] eGFR 55(L) >=60 mL/min/1. 73m2 03/07/2024 12:30 PM EDT [facility] Comment:The estimated [...] - 4.2 g/dL 03/07/2024 12:30 PM EDT [facility] A/G Ratio 1.0(L) 1.5 - 3.0 03/07/2024 12:30 PM EDT [facility] Blood Structure of peripheral vein / Unknown Venipuncture / Unknown 03/07/2024 11:28 AM EDT 03/07/2024 11:28 AM EDT us Valarie Pierson MD LAB BLOOD ORDERABLES Final Res ult [facility] [address] [place] [address], documented in this encounter Visit Diagnoses Diagnosis [...] documented as of this encounter Care Teams Range Examiner Relationship Specialty Start Date End Date Uday Sheehan [address] [place] [address] [place] [address] PCP - General Internal Medicine 03/27/24 documented as of this encounter
[2024-11-19 18:22] LABS: Alkaline Phosphatase 100 U/L (39-117)
--- NOTE | 2024-11-19 19:12 | PC.NURSE ---
assumed care for pt at this time. pt pleasant, alert and oriented to self place and time. pt updated on plan of care, collected urine specimen and sent to lab. IV running and patent. Pt in no notable distress, needs met at this time. call brunson within reach plan of care ongoing.
[2024-11-19 19:21] LABS: Appearance Urine Cloudy; Color Urine Yellow; Glucose Urine UA Negative (Negative); Leukocyte Esterase Urine Large (3+) (Negative); Nitrite Urine Negative (Negative); PH 6.5 (5.0-9.0); UMIC TRIGGER UACC YES; Urine Blood Small (1+) (Negative); Urine Ketones Negative (Negative); Urine Protein Trace mg/dL (Neg-Trace)
[2024-11-19 19:39] LABS: Bacteria Urine None Seen (None Seen); Calcium Oxalate Crystals Urine Present; Hyaline Casts Urine 0-2 /LPF (0-2); Squamous Epithelial Cell Urine 0-2 /HPF (0-2); UACC Culture Trigger YES
--- NOTE | 2024-11-19 21:13 | PM.EVENT ---
Event Note Date of Service: 11/19/24 Event Note: I was contacted by Dr. Horowitz for chart reviewing this patient. As per Dr. Horowitz, patient was sent in for evaluation of possible fever and hypotension. In the emergency department, no real fever, no hypotension other that the cuff problems that showed a low BP which wasn't real. Supposedly earlier today he [place] [facility], and here the first one was low because the cuff had the wrong size . Patient without any urinary complaints or altered mentation. No documented temperature greater than 100.4 while in the ER. Patient is hemodynamically stable and maintaining normal oxygen saturation on room air. Vitals at the time of chart review in the ER: 116/51 with pulse 67 and temperature 98.2 degrees F. 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 Currently without urinary symptoms, leukocytosis, fever or hypotension and hence no indication for admission at this time. Patient is also mentating at baseline as per ER provider. 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 Discussed with ER provider. Time Spent With Patient Time: Total time managing care of this patient today ____ minutes.
== END 2024-11-19 22:32 | disposition home or self-care (01) ==
PROVIDERS: Emergency Provider Emergency Medicine
DX: L97.509 Non-pressure chronic ulcer of other part of unspecified foot with unspecified severity (principal); L98.419 Non-pressure chronic ulcer of buttock with unspecified severity; R05.9 Cough, unspecified; I48.0 Paroxysmal atrial fibrillation; Z79.899 Other long term (current) drug therapy; Z79.01 Long term (current) use of anticoagulants; Z03.818 Encounter for observation for suspected exposure to other biological agents ruled out
CPT/HCPCS: 0241U; 36415; 71045; 80048; 80076; 81001; 83605; 85025; 87040; 87086; 87088; 96361; 96374; 99284; 99285; J0696

== ENCOUNTER → 2024-11-19 17:02 | Outpatient (BNV) | payer MEDICARE, SELFPAY | PROVIDERS: Emergency Provider Emergency Medicine; Visit Provider Radiology Diagnostic Radiology | DX: R05.9 Cough, unspecified (principal); R50.9 Fever, unspecified | CPT/HCPCS: 71045 ==

== ENCOUNTER 2025-03-08 20:28 | Emergency (ER) | payer MEDICARE, SELFPAY ==
--- OUTSIDE RECORDS SUMMARY | 2024-08-15 09:00 | XMS_ITS ---
Author Organization [facility] Address [address] [place] [address] Care Team Providers Care Group Fitness Instructor Name Role Phone Pearl Garcia Primary Care Provider Lucila Phillip [facility] [phone] Encounters Encounter Location Date Provider [facility] [address] [place] [address] 08/15/2024 Lucila Kapoor Plan Of Treatment No Information Progress Notes * Ramon SIMMSDOB:1939 (85 yo M)Acc No.[id number]:08/15/2024 Progress Notes Patient: Ramon LUCAS Provider: Kendall Kapoor DPM :1940 A ge:84 Y S ex:Male Date:08/15/2024 [facility] [id number] Pcp:Pearl Garcia Subjective: * Chief Complaints: * * Medical History: Objective: * Vitals: Assessment: Plan: * Treatment: * Images: * The named appointment provid er may or may not be the originator of this progress note, and it is not deemed complete until electronically signed by the appointment provider. Sign off status: Pending * Provider: Kendall Kapoor DPM Date: 0 08/15/2024 Generated for Braeden boyce/Alexis/Lakeishaitting on: 0 03/08/2025 09:09 PM EDT
--- NOTE | ~2025-03-08 | XR_ITS ---
CLINICAL HISTORY: G tube placement --- Additional Notes or Special Instructions: G tube placement 1 view abdomen Comparison: None provided Findings: Gastrostomy balloon in proximal stomach. Contrast injection demonstrates no leak. No significant bowel distention. Degenerative change lumbar spine. Bilateral hip prostheses noted. Right upper quadrant surgical clips. Impression: Gastrostomy tube balloon in proximal stomach This document has been electronically signed by: Bryce Tillman MD on 03/08/2025 23:10:44
[2025-03-08 20:42] VITALS: BP 115/46; BP 138/44; PULSE 81; PULSE 82; RESP 16; TEMP 36.5; O2SAT 96; O2SAT 98; BMI 29.7
[2025-03-08 20:44] VITALS: BP 115/46; PULSE 77; RESP 18; O2SAT 93
--- NOTE | 2025-03-08 20:52 | PC.NURSE ---
PVR contacted for G-tube size, pt has 18fr, 7-10mL. Pt denies abd pain, gauze in place over insertion site. Pt denies CP/SOB/dizziness/fevers.
--- OUTSIDE RECORDS SUMMARY | 2025-03-08 21:07 | XMS_ITS | Encounter Summary ---
Author Organization [facility] Address [address] [place] [address] Care Team Providers Care Boat Outfitter Name Role Phone Uday Sheehan MD Primary Care Provider [phone] Encounter Details Date Type Department Care Team (Late st Contact Info) Description 08/05/[address] [facility] - Main Lab [address] [facility] [place] [address] Tabby Bledsoe MD 8[address] [facility] 1 [place] [address] Urinary tract infection, site not specified Social [...] Escherichia coli(A) [place] 08/07/2024 9:46 AM EST [facility] ([facility] Comment: This is an edited [...] MICROBIOLOGY - GENER AL ORDERABLES Final Result [facility] [address] [place] [address], * (ABNORMAL) Urinalysis with reflex microscopic and culture (08/03/2024 7:00 AM EST) Pathologist [facility] Specific [place] Urine 1.014 1.003 - 1.030 LAB URINALYSIS - AUTOMATED METHOD 08/05/2024 1:39 PM [facility] pH, Urine 5.5 5.0 - 8.0 pH LAB URINALYSIS - AUTOMATED METHOD 08/05/2024 1:39 PM [facility] Leukocytes, Urine Large(A) Negative LAB URINALYSIS - AUTOMATED METHOD 08/05/2024 1:39 PM [facility] Nitrite, Urine Negative Negative LAB URINALYSIS - AUTOMATED METHOD 08/05/2024 1:39 PM [facility] Protein, Urine 30(A) <=Trace mg/dL LAB URINALYSIS - AUTOMATED METHOD 08/05/2024 1:39 PM [facility] Glucose, Urine Negative Negative mg/dL LAB URINALYSIS - AUTOMATED METHOD 08/05/2024 1:39 PM [facility] Ketones, Urine Negative Negative mg/dL LAB URINALYSIS - AUTOMATED METHOD 08/05/2024 1:39 PM [facility] Urobilinogen , Urine 0.2 0.2 - 1.0 mg/dL LAB URINALYSIS - AUTOMATED METHOD 08/05/2024 1:39 PM [facility] Bilirubin, Urine Negative Negative LAB URINALYSIS - AUTOMATED METHOD 08/05/2024 1:39 PM [facility] Blood, Urine Large(A) Negative LAB URINALYSIS - AUTOMATED METHOD 08/05/2024 1:39 PM [facility] RBC, Urine 271.0(H) 0 - 4 /HPF LAB URINALYSIS - AUTOMATED METHOD 08/05/2024 1:39 PM [facility] WBC, Urine 1,434.7(H) 0 - 4 /HPF LAB URINALYSIS - AUTOMATED METHOD 08/05/2024 1:39 PM [facility] Squamous Epithelial, Urine 41 0 - 60 /LPF LAB URINALYSIS - AUTOMATED METHOD 08/05/2024 1:39 PM [facility] Crystals, Urine MOD CALCIUM OXALATE /LPF LAB URINALYSIS - AUTOMATED METHOD 08/05/2024 1:39 PM [facility] Bacteria, Urine Many(A) Negative /HPF LAB URINALYSIS - AUTOMATED METHOD 08/05/2024 1:39 PM [facility] Hyaline Casts, Urine 8.1(H) 0 - 3 /LPF LAB URINALYSIS - AUTOMATED METHOD 08/05/2024 1:39 PM [facility] Urine Indwelling urinary catheter / Unknown Non-blood Collection / Unknown 08/03/2024 7:00 AM EST 08/05/2024 11:47 AM EST Tabby Bledsoe MD LAB URINE ORDERABLES Fin al Result Performing Organization Address [facility]/ZIP Co de Phone Number [facility] [address] [place] [address], [place] [phone] * Espinoaz urine culture tube (08/03/2024 7:00 AM EST) Extra Tube Hold for add-ons. 08/05/2024 1:01 PM [facility] Comment:Auto resulted. Urine Indwelling urinary catheter / Unknown Non-blood Collection / Unknown 08/03/2024 7:00 AM EST 08/05/2024 11:47 AM EST Tabby Bledsoe MD LAB URINE ORDERABLES Fin al Result Performing Organization Address [facility]/ZIP Co de Phone Number [facility] [address] [place] [address], [place] [phone] documented in this encounter Visit Diagnoses Diagnosis Urinary tract infection, site not specified documented in this encounter Additional Health Concerns Infection Onset Date Last Indicated Resolved Time ESBL 06/22/2024 06/22/2024 documented as of this encounter Care Teams Boat Outfitter Relationship Specialty Start Date End Date Uday Sheehan MD [address] [place] [address] Dr [place], [place] PCP - General Php Wordpress Developer 12/19/16 documented as of this encounter
--- OUTSIDE RECORDS SUMMARY | 2025-03-08 21:07 | XMS_ITS | Encounter Summary ---
Author Organization [facility] Address [address] [place] [address] Care Team Providers Care Agriculturist Name Role Phone Uday Sheehan MD Primary Care Provider Encounter Details Date Type Department Care Team (Late st Contact Info) Description 11/14/2024 Lab Requisition [facility] - Main Lab [address] [place] [address] Tabby Bledsoe MD [address] [address] Anemia, unspecified Social History Tobacco Use Types [...] AM EDT) WBC 6.4 4.8 - 10.8 K/[facility] LAB HEMETOLOGY METHOD 11/14/2024 9:19 AM EDT [facility] RBC 2.50(L) 4.50 - 5.50 /[facility] LAB HEMETOLOGY METHOD 11/14[facility]24 [facility] Hemoglobin 6.7(L) 13.5 - 17.5 g/dL LAB HEMETOLOGY METHOD 11/14/2024 9:19 AM [facility] Hematocrit 23.1(L) 42.0 - 54.0 % LAB HEMETOLOGY METHOD 11/14/2024 9:19 AM [facility] MCV 92.0 79.0 - 98.0 FL LAB HEMETOLOGY METHOD 11/14/2024 9:19 AM [facility] MCH 26.7(L) 27.0 - 32.0 pcg LAB HEMETOLOGY METHOD 11/14/2024 9:19 AM [facility] MCHC 29.0(L) 32.0 - 37.0 g/dL LAB HEMETOLOGY METHOD 11/14/2024 9:19 AM [facility] RDW 17.5(H) 11.0 - 15.0 % LAB HEMETOLOGY METHOD 11/14/2024 9:19 AM [facility] Platelets 239 130 - 400 K/mcL LAB HEMETOLOGY METHOD 11/14/2024 9:19 AM [facility] MPV 9.3 7.0 - 11.0 FL LAB HEMETOLOGY METHOD 11/14/2024 9:19 AM [facility] NRBC 0.0 <1.0 % LAB HEMETOLOGY METHOD 11/14/2024 9:19 AM [facility] NRBC Absolute 0.00 <0.10 K/mcL LAB HEMETOLOGY METHOD 11/14/2024 9:19 AM [facility] Blood Venous blood specimen / Unknown Venipuncture / Unknown 11/14/2024 6:10 AM EDT 11/14/2024 8:46 AM EDT Tabby Bledsoe MD LAB BLOOD ORDERABLES Fin al Result [facility] [address] [place] [address], documented in this encounter Visit Diagnoses Diagnosis Anemia, unspecified documented in this encounter Additional Health Concerns Infection Onset Date Last Indicated Resolved Time ESBL 06/22/2024 06/22/2024 documented as of this encounter Care Teams Agriculturist Relationship Specialty Start Date End Date Uday Sheehan MD [address] [place] [address] Dr Butler [address] [place] [address] PCP - General Slot Supervisor 12/19/16 documented as of this encounter
--- OUTSIDE RECORDS SUMMARY | 2025-03-08 21:07 | XMS_ITS | Clinical Summary ---
Author Organization [address] [facility] Address [address] [place] [address] Phone Care Team Providers Care Dry Transfer Worker Name Role Phone Uday Sheehan MD Primary Care Provider [phone] Encounters Date Type Department Care Team Description 01/17/2025 Lab Requisition [facility] - Main Lab [address] [place] [address] Tabby Bledsoe MD Bacteremia 01/09/2025 Lab Requisition [facility] - Main Lab [address] [place] [address] Tabby Bledsoe MD Bacteremia 01/03/2025 Lab Requisition [facility] - Main Lab [address] [place] [address] Tabby Bledsoe MD Bacteremia 12/31/2024 Lab Requisition [facility] - Main Lab [address] [place] [address] Tabby Bledsoe MD Essential (primary) hypertension; Anemia, unspecified; Weakness 12/27/2024 Lab Requisition [facility] - Main Lab [address] [place] [address] Tabby Bledsoe MD Bacteremia 12/20/2024 Lab Requisition [facility] - Main Lab [address] [place] [address] Tabby Bledsoe MD Bacteremia 12/17/2024 Lab Requisition [facility] - Main Lab [address] [place] [address] Tabby Bledsoe MD Anemia, unspecified 12/13/2024 Lab Requisition [facility] - Main Lab [address] [place] [address] Tabby Bledsoe MD Bacteremia 12/09/2024 Lab Requisition [facility] [address] [place] [address] Tabby Bledsoe MD Bacteremia from [...] Patients (1 - 1-dose 75+ series) 02/15/2015 Falls Risk Assessment 08/08/2023 Medicare Annual Wellness Visit 08/08/2023 Social Influencers of Health Screening 08/08/2023 COVID-19 Vaccine ( season) 2024 11/09/2021, 04/05/2021 Depression Screening 07/10/2024 Influenza Vaccine (#1) 2025 04/08/2024 Hypertension/CHF/CAD Annual BMP Blood Test 01/20/2026 01/20/2025, 01/13/2025, 01/06/2025, Additional history exists Cholesterol Screening (Lipid Panel) 11/22/2029 11/22/2024 HIB Vaccines Aged Out No longer eligi [...] Associated Diagnosis Comments COMPREHENSIVE METABOLIC PANEL Routine 01/20/2025 8:29 AM EDT Bacteremia COMPLETE BLOOD COUNT Routine 01/20/2025 8:29 AM EDT Bacteremia COMPREHENSIVE METABOLIC PANEL Routine 01/13/2025 8:21 AM EDT Bacteremia COMPLETE BLOOD COUNT Routine 01/13/2025 8:21 AM EDT Bacteremia COMPREHENSIVE METABOLIC PANEL Routine 01/06/2025 8:43 AM EDT Bacteremia COMPLETE BLOOD COUNT Routine 01/06/2025 8:43 AM EDT Bacteremia HEPATIC FUNCTION PANEL Routine 4:50 AM EDT Essential (primary) hypertension Anemia, unspecified Weakness COMPREHENSIVE METABOLIC PANEL Routine 12/30/2024 8:58 AM EDT Bacteremia COMPLETE BLOOD COUNT Routine 12/30/2024 8:58 AM EDT Bacteremia COMPREHENSIVE METABOLIC PANEL Routine 12/23/2024 8:42 AM EDT Bacteremia COMPLETE BLOOD COUNT Routine 12/23/2024 8:42 AM EDT Bacteremia COMPREHENSIVE METABOLIC PANEL Routine 12/18/2024 7:45 AM EDT Anemia, unspecified COMPLETE BLOOD COUNT Routine 12/18/2024 7:45 AM EDT Anemia, unspecified COMPREHENSIVE METABOLIC PANEL Routine 12/16/2024 9:29 AM EDT Bacteremia COMPLETE BLOOD COUNT Routine 12/16/2024 9:29 AM EDT Bacteremia COMPREHENSIVE METABOLIC PANEL Routine 12/09/2024 7:54 AM EDT Bacteremia COMPLETE BLOOD COUNT Routine 12/09/2024 7:54 AM EDT Bacteremia LIPID PANEL WITH REFLEX TO DIRECT LDL Routine 11/22/2024 7:44 AM EDT Osteomyelitis, unspecified ([facility] V24, [facility] V28) Bacteremia Anemia, unspecified Chronic kidney disease, unspecified from Last 3 Months or Most Recently Relevant to Health Maintenance Results * (ABNORMAL) Complete blood count (01/20/2025 8:29 AM EDT) Only the most recent of8 resultswithin the time period is included. [facility] Signature WBC 6.4 4.8 - 10.8 K/mcL LAB HEMETOLOGY METHOD 01/20/2025 12:47 PM [facility] RBC 2.60(L) 4.50 - 5.50 M/mcL LAB HEMETOLOGY METHOD 01/20/2025 12:47 PM [facility] Hemoglobin 6.8(L) 13.5 - 17.5 g/dL LAB HEMETOLOGY METHOD 01/20/2025 12:47 PM [facility] Hematocrit 24.8(L) 42.0 - 54.0 % LAB HEMETOLOGY METHOD 01/20/2025 12:47 PM [facility] LAB MCV 94.3 79.0 - 98.0 FL LAB HEMETOLOGY METHOD 01/20/2025 12:47 PM [facility] MCH 25.9(L) 27.0 - 32.0 pcg LAB HEMETOLOGY METHOD 01/20/2025 12:47 PM EDT [facility] MCHC 27.4(L) 32.0 - 37.0 g/dL LAB HEMETOLOGY METHOD 01/20/2025 12:47 PM EDT [facility] RDW 18.0(H) 11.0 - 15.0 % LAB HEMETOLOGY METHOD 01/20/2025 12:47 PM EDT [facility] LAB Platelets 191 130 - 400 K/mcL LAB HEMETOLOGY METHOD 01/20/2025 12:47 PM EDT [facility] MPV 9.5 7.0 - 11.0 FL LAB HEMETOLOGY METHOD 01/20/2025 12:47 PM EDT [facility] NRBC 0.0 <1.0 % LAB HEMETOLOGY METHOD 01/20/2025 12:47 PM EDT [facility] NRBC Absolute 0.00 <0.10 K/mcL LAB HEMETOLOGY METHOD 01/20/2025 12:47 PM EDT [facility] Blood Venous blood specimen / Unknown Venipuncture / Unknown 01/20/2025 8:29 AM EDT 01/20/2025 10:10 AM EDT us Tabby Bledsoe MD LAB BLOOD ORDERABLES Fin al Result [facility] [address] [place] [address], * (ABNORMAL) Comprehensive metabolic panel (01/20/2025 8:29 AM EDT) Only the most recent of8 resultswithin the time period is included. Sodium 139 133 - 145 mmol/L LAB CHEMISTRY METHOD 01/20/2025 3:02 PM EDT [facility] Potassium 4.5 3.5 - 5.5 mmol/L LAB CHEMISTRY METHOD 01/20/2025 3:02 PM EDT [facility] Chloride 103 96 - 110 mmol/L LAB CHEMISTRY METHOD 01/20/2025 3:02 PM [facility] CO2 32 21 - 32 mmol/L LAB CHEMISTRY METHOD 01/20/2025 3:02 PM [facility] Anion Gap 4 3 - 11 LAB CHEMISTRY METHOD 01/20/2025 3:02 PM [facility] Glucose 101(H) 70 - 100 mg/dL LAB CHEMISTRY METHOD 01/20/2025 3:02 PM [facility] BUN 54(H) 5 - 25 mg/dL LAB CHEMISTRY METHOD 01/20/2025 3:02 PM [facility] Creatinine 1.44(H) 0.70 - 1.30 mg/dL LAB CHEMISTRY METHOD 01/20/2025 3:02 PM [facility] eGFR 48(L) >=60 mL/min/1. 73m2 LAB CHEMISTRY METHOD 01/20/2025 3:02 PM [facility] Comment:Calculation based on the Chronic Kidney Disease Epidemiology Collaboration (CKD-EPI) equation refit without adjustment for race. BUN/Creatinine Ratio 37.5 LAB CHEMISTRY METHOD 01/20/2025 3:02 PM [facility] Calcium 8.5 8.5 - 10.5 mg/dL LAB CHEMISTRY METHOD 01/20/2025 3:02 PM [facility] AST (SGOT) 32 10 - 42 unit/L LAB CHEMISTRY METHOD 01/20/2025 3:02 PM [facility] ALT (SGPT) 34 10 - 60 unit/L LAB CHEMISTRY METHOD 01/20/2025 3:02 PM [facility] Alkaline Phosphatase 101 42 - 121 unit/L LAB CHEMISTRY METHOD 01/20/2025 3:02 PM [facility] Total Protein 6.0 6.0 - 8.0 g/dL LAB CHEMISTRY METHOD 01/20/2025 3:02 PM EDT [facility] Albumin 1.5(L) 3.2 - 5.0 g/dL LAB CHEMISTRY METHOD 01/20/2025 3:02 PM EDT [facility] Total Bilirubin 0.3 0.0 - 1.4 mg/dL LAB CHEMISTRY METHOD 01/20/2025 3:02 PM T [facility] Blood Venous blood specimen / Unknown Venipuncture / Unknown 01/20/2025 8:29 AM EDT 01/20/2025 10:07 AM EDT us Tabby Bledsoe MD LAB BLOOD ORDERABLES Fin al Result [facility] [address] [place] [address], [place] [phone] * (ABNORMAL) Hepatic function panel (12/31/2024 4:50 AM EDT) Total Protein 6.3 6.0 - 8.0 g/dL LAB CHEMISTRY METHOD 12/31/2024 10:52 AM [facility] Albumin 1.5(L) 3.2 - 5.0 g/dL LAB CHEMISTRY METHOD 12/31/2024 10:52 AM [facility] Total Bilirubin 0.3 0.0 - 1.4 mg/dL LAB CHEMISTRY METHOD 12/31/2024 10:52 AM [facility] Bilirubin, Direct 0.1 0.0 - 0.3 mg/dL LAB CHEMISTRY METHOD 12/31/2024 10:52 AM [facility] Bilirubin, Indirect 0.2 0.0 - 1.1 mg/dL LAB CHEMISTRY METHOD 12/31/2024 10:52 AM [facility] ALT (SGPT) 65(H) 10 - 60 unit/L LAB CHEMISTRY METHOD 12/31/2024 10:52 AM [facility] AST (SGOT) 43(H) 10 - 42 unit/L LAB CHEMISTRY METHOD 12/31/2024 10:52 AM T [facility] Alkaline Phosphatase 186(H) 42 - 121 unit/L LAB CHEMISTRY METHOD 12/31/2024 10:52 AM [facility] Blood Venous blood specimen / Unknown Venipuncture / Unknown 12/31/2024 4:50 AM EDT 12/31/2024 9:30 AM EDT us Tabby Bledsoe MD LAB BLOOD ORDERABLES Fin al Result [facility] [address] [place] [address], [place] [phone] * (ABNORMAL) Lipid panel with reflex to direct LDL (11/22/2024 7:44 AM EDT) Cholesterol 86 0 - 200 mg/dL LAB CHEMISTRY METHOD 11/22/2024 10:35 AM [facility] Triglycerides 52 0 - 150 mg/dL LAB CHEMISTRY METHOD 11/22/2024 10:35 AM [facility] HDL 33(L) >=40 mg/dL LAB CHEMISTRY METHOD 11/22/2024 10:35 AM [facility] LDL Calculated 43 0 - 100 mg/dL LAB CHEMISTRY METHOD 11/22/2024 10:35 AM [facility] VLDL Cholesterol Da 10.4 mg/dL LAB CHEMISTRY METHOD 11/22/2024 10:35 AM [facility] Non HDL Chol. (LDL+VLDL) 53 <145 mg/dL LAB CHEMISTRY METHOD 11/22/2024 10:35 AM [facility] Chol/HDL Ratio 2.6 0.0 - 4.4 LAB CHEMISTRY METHOD 11/22/2024 10:35 AM [facility] Blood Venous blood specimen / Unknown Venipuncture / Unknown 11/22/2024 7:44 AM EDT 11/22/2024 9:32 AM EDT us Tabby Bledsoe MD LAB BLOOD ORDERABLES Fin al Result [facility] LAB [address] [place] [address], from Last 3 Months or Most Recently Relevant to Health Maintenance Additional Health Concerns Infection Onset Date Last Indicated ESBL 06/22/2024 06/22/[address] [facility] Care Teams Dry Transfer Worker Relationship Specialty Start Date End Date Uday Sheehan MD [address] [place] [address] Dr Donna [place] PCP - General Pattern Clerk 12/19/16
--- OUTSIDE RECORDS SUMMARY | 2025-03-08 21:07 | XMS_ITS | Patient Health Record ---
Author Organization [facility] Address [address] [place] [address] Care Team Providers Care Housekeeping Lead Name Role Phone ZanLuis Angel [email or web address] Primary Care Provider Louis Horne Unavailable [phone] Allergies Allergen (clinical drug ingredient) Drug/Non Drug Allergy documented on EMR Reaction Allergy Type Onset Date Status Information temporarily unavailable Dilaudid Unknown Drug Allergy Active Information temporarily unavailable some dyes in Motrin (uncoded) Unknown Allergy [...] Problem Status W/U Status Risk Notes Problem 781653452 Bloating (R14.0) Active confirmed Problem 008588082 Chest discomfort (R07.89) Active confirmed Problem 633669438 Gastroesophageal reflux disease without esophagitis (K21.9) Active confirmed Problem 75756519 Other irritable bowel syndrome (K58.8) Active confirmed Problem 95037403 Hypertension, unspecified type (I10) Active confirmed Problem 821861340 Gastroesophageal reflux disease, unspecified whether esophagitis present [...] [place] [address] [place] [address] [id number] RIZWANA ANDREW Self - patient is the insured [employer] CLAIMS [address] [place] [address] [id number] RIZWANA ANDREW Self - patient is the insured Medical (General) History Medical History History ICD Code Nephrolithiasis Hyperlipidemia Denies [place],DM,CVA,Lung disease,renal dise ase Afib--2 unsuccessful ablatio n porcedures--sees Dr. Villalobos-cardiology at [facility]--s/p cardioversion 07/2021 at [facility] with Dr. Briones---he has had multiple cardioversions [...]
--- OUTSIDE RECORDS SUMMARY | 2025-03-08 21:07 | XMS_ITS | Encounter Summary ---
Author Organization [facility] Address [address] [place] [address] Care Team Providers Care Clinical Data Manager Name Role Phone Uday Sheehan MD Primary Care Provider [phone] Encounter Details Date Type Department Care Team (Late st Contact Info) Description 07/11/2024 Lab Requisition [facility] - Main Lab [address] [place] [address] Tabby Bledsoe MD [address] [address] Acute kidney failure, unspecified (CMS/HCC V24) Social [...] LAB CHEMISTRY METHOD 07/11/2024 11:14 AM EST [facility] Potassium 4.1 3.5 - 5.5 mmol/L LAB CHEMISTRY METHOD 07/11/2024 11:14 AM [facility] Chloride 113(H) 96 - 110 mmol/L LAB CHEMISTRY METHOD 07/11/2024 11:14 AM [facility] LAB CO2 31 21 - 32 mmol/L LAB CHEMISTRY METHOD 07/11/2024 11:14 AM [facility] Anion Gap 3 3 - 11 LAB CHEMISTRY METHOD 07/11/2024 11:14 AM [facility] Glucose 100 70 - 100 mg/dL LAB CHEMISTRY METHOD 07/11/2024 11:14 AM [facility] BUN 29(H) 5 - 25 mg/dL LAB CHEMISTRY METHOD 07/11/2024 11:14 AM [facility] Creatinine 1.31(H) 0.70 - 1.30 mg/dL LAB CHEMISTRY METHOD 07/11/2024 11:14 AM [facility] eGFR 54(L) >=60 mL/min/1. 73m2 LAB CHEMISTRY METHOD 07/11/2024 11:14 AM [facility] Comment:Calculation based on the Chronic Kidney Disease Epidemiology Collaboration (CKD-EPI) equation refit without adjustment for race. BUN/Creatinine Ratio 22.1 LAB CHEMISTRY METHOD 07/11/2024 11:14 AM [facility] Calcium 10.3 8.5 - 10.5 mg/dL LAB CHEMISTRY METHOD 07/11/2024 11:14 AM [facility] AST (SGOT) 36 10 - 42 unit/L LAB CHEMISTRY METHOD 07/11/2024 11:14 AM [facility] ALT (SGPT) 23 10 - 60 unit/L LAB CHEMISTRY METHOD 07/11/2024 11:14 AM [facility] Alkaline Phosphatase 127(H) 42 - 121 unit/L LAB CHEMISTRY METHOD 07/11/2024 11:14 AM [facility] Total Protein 5.8(L) 6.0 - 8.0 g/dL LAB CHEMISTRY METHOD 07/11/2024 11:14 AM [facility] Albumin 1.6(L) 3.2 - 5.0 g/dL LAB CHEMISTRY METHOD 07/11/2024 11:14 AM [facility] Total Bilirubin 0.4 0.0 - 1.4 mg/dL LAB CHEMISTRY METHOD 07/11/2024 11:14 AM [facility] Blood Venous blood specimen / Unknown Venipuncture / Unknown 07/11/2024 5:17 AM EST 07/11/2024 10:02 AM EST us Tabby Bledsoe MD LAB BLOOD ORDERABLES Fin al Result [facility] [address] [place] [address], * (ABNORMAL) Complete blood count (07/11/2024 5:17 AM EST) WBC 6.4 4.8 - 10.8 K/mcL LAB HEMETOLOGY METHOD 07/11/2024 10:30 AM [facility] RBC 2.80(L) 4.50 - 5.50 M/mcL LAB HEMETOLOGY METHOD 07/11/2024 10:30 AM [facility] Hemoglobin 7.3(L) 13.5 - 17.5 g/dL LAB HEMETOLOGY METHOD 07/11/2024 10:30 AM [facility] Hematocrit 24.5(L) 42.0 - 54.0 % LAB HEMETOLOGY METHOD 07/11/2024 10:30 AM [facility] MCV 87.8 79.0 - 98.0 FL LAB HEMETOLOGY METHOD 07/11/2024 10:30 AM [facility] MCH 26.2(L) 27.0 - 32.0 pcg LAB HEMETOLOGY METHOD 07/11/2024 10:30 AM EST [facility] MCHC 29.8(L) 32.0 - 37.0 g/dL LAB HEMETOLOGY METHOD 07/11/2024 10:30 AM [facility] RDW 19.2(H) 11.0 - 15.0 % LAB HEMETOLOGY METHOD 07/11/2024 10:30 AM EST [facility] Platelets 210 130 - 400 K/mcL LAB HEMETOLOGY METHOD 07/11/2024 10:30 AM [facility] MPV 10.2 7.0 - 11.0 FL LAB HEMETOLOGY METHOD 07/11/2024 10:30 AM [facility] NRBC 0.0 <1.0 % LAB HEMETOLOGY METHOD 07/11/2024 10:30 AM [facility] NRBC Absolute 0.00 <0.10 K/mcL LAB HEMETOLOGY METHOD 07/11/2024 10:30 AM [facility] Blood Venous blood specimen / Unknown Venipuncture / Unknown 07/11/2024 5:17 AM EST 07/11/2024 10:02 AM EST us Tabby Bledsoe MD LAB BLOOD ORDERABLES Fin al Result [facility] [address] [place] [address], documented in this encounter Visit Diagnoses Diagnosis Acute kidney failure, unspecified (CMS/HCC V24) Acute kidney failure, unspecified documented in this encounter Additional Health Concerns Infection Onset Date Last Indicated Resolved Time ESBL 06/22/2024 06/22/2024 documented as of this encounter Care Teams Clinical Data Manager Relationship Specialty Start Date End Date Uday Sheehan MD [address] [place] PCP - General Pointer Machine Operator 12/19/16 documented as of this encounter
--- OUTSIDE RECORDS SUMMARY | 2025-03-08 21:07 | XMS_ITS | Encounter Summary ---
Author Organization [facility] Address [address] [place] [address] Care Team Providers Care X Ray Physician Name Role Phone Uday Sheehan MD Primary Care Provider [phone] Encounter Details Date Type Department Care Team (Late st Contact Info) Description 11/17/2024 Lab Requisition [facility] - Main Lab [address] [place] [address] Tabby Bledsoe MD [address] [address] Bacteremia Social History Tobacco Use Types Packs/Day [...] LAB CHEMISTRY METHOD 11/18/2024 1:[address] [facility] Potassium 3.9 3.5 - 5.5 mmol/L LAB CHEMISTRY METHOD 11/18/2024 1:33 PM [facility] Chloride 106 96 - 110 mmol/L LAB CHEMISTRY METHOD 11/18/2024 1:33 PM [facility] CO2 30 21 - 32 mmol/L LAB CHEMISTRY METHOD 11/18/2024 1:33 PM [facility] Anion Gap 4 3 - 11 LAB CHEMISTRY METHOD 11/18/2024 1:33 PM [facility] Glucose 125(H) 70 - 100 mg/dL LAB CHEMISTRY METHOD 11/18/2024 1:33 PM [facility] BUN 39(H) 5 - 25 mg/dL LAB CHEMISTRY METHOD 11/18/2024 1:33 PM [facility] Creatinine 1.15 0.70 - 1.30 mg/dL LAB CHEMISTRY METHOD 11/18/2024 1:33 PM [facility] eGFR 63 >=60 mL/min/1. 73m2 LAB CHEMISTRY METHOD 11/18/2024 1:33 PM [facility] Comment:Calculation based on the Chronic Kidney Disease Epidemiology Collaboration (CKD-EPI) equation refit without adjustment for race. BUN/Creatinine Ratio 33.9 LAB CHEMISTRY METHOD 11/18/2024 1:33 PM [facility] Calcium 7.7(L) 8.5 - 10.5 mg/dL LAB CHEMISTRY METHOD 11/18/2024 1:33 PM [facility] AST (SGOT) 41 10 - 42 unit/L LAB CHEMISTRY METHOD 11/18/2024 1:33 PM [facility] ALT (SGPT) 42 10 - 60 unit/L LAB CHEMISTRY METHOD 11/18/2024 1:33 PM [facility] Alkaline Phosphatase 131(H) 42 - 121 unit/L LAB CHEMISTRY METHOD 11/18/2024 1:33 PM [facility] Total Protein 5.7(L) 6.0 - 8.0 g/dL LAB CHEMISTRY METHOD 11/18/2024 1:[address] [facility] Albumin 1.4(L) 3.2 - 5.0 g/dL LAB CHEMISTRY METHOD 11/18/2024 1:[address] [facility] Total Bilirubin 0.3 0.0 - 1.4 mg/dL LAB CHEMISTRY METHOD 11/18/2024 1:[address] [facility] Blood Venous blood specimen / Unknown Venipuncture / Unknown 11/18/2024 11:10 AM EDT 11/18/2024 11:58 AM EDT us Tabby Bledsoe MD LAB BLOOD ORDERABLES Fin al Result [facility] [address] [place] [address], * (ABNORMAL) Complete blood count (11/18/2024 11:10 AM EDT) WBC 6.3 4.8 - 10.8 K/mcL LAB HEMETOLOGY METHOD 11/18/2024 2:05 PM [facility] RBC 2.70(L) 4.50 - 5.50 M/mcL LAB HEMETOLOGY METHOD 11/18/2024 2:05 PM [facility] Hemoglobin 7.2(L) 13.5 - 17.5 g/dL LAB HEMETOLOGY METHOD 11/18/2024 2:[address] [facility] Hematocrit 24.5(L) 42.0 - 54.0 % LAB HEMETOLOGY METHOD 11/18/2024 2:[address] [facility] MCV 90.7 79.0 - 98.0 FL LAB HEMETOLOGY METHOD 11/18/2024 2:05 PM [facility] MCH 26.7(L) 27.0 - 32.0 pcg LAB HEMETOLOGY METHOD 11/18/2024 2:[address] [facility] MCHC 29.4(L) 32.0 - 37.0 g/dL LAB HEMETOLOGY METHOD 11/18/2024 2:[address] [facility] RDW 17.8(H) 11.0 - 15.0 % LAB HEMETOLOGY METHOD 11/18/2024 2:[address] [facility] Platelets 217 130 - 400 K/mcL LAB HEMETOLOGY METHOD 11/18/2024 2:[address] [facility] MPV 9.3 7.0 - 11.0 FL LAB HEMETOLOGY METHOD 11/18/2024 2:[address] [facility] NRBC 0.0 <1.0 % LAB HEMETOLOGY METHOD 11/18/2024 2:[address] [facility] NRBC Absolute 0.00 <0.10 K/mcL LAB HEMETOLOGY METHOD 11/18/2024 2:[address] [facility] Blood Venous blood specimen / Unknown Venipuncture / Unknown 11/18/2024 11:10 AM EDT 11/18/2024 11:58 AM EDT us Tabby Bledsoe MD LAB BLOOD ORDERABLES Fin al Result [facility] [address] [place] [address], documented in this encounter Visit Diagnoses Diagnosis Bacteremia documented in this encounter Additional Health Concerns Infection Onset Date Last Indicated Resolved Time ESBL 06/22/2024 06/22/2024 documented as of this encounter Care Teams X Ray Physician Relationship Specialty Start Date End Date Uday Sheehan MD [address] [place] [address] Dr Thompson [place] PCP - General File Clerk Data Entry 12/19/16 documented as of this encounter
--- OUTSIDE RECORDS SUMMARY | 2025-03-08 21:07 | XMS_ITS | Encounter Summary ---
Author Organization [facility] Address [address] [place] [address] Care Team Providers Care Bean Snapper Name Role Phone Uday Sheehan MD Primary Care Provider [phone] Encounter Details Date Type Department Care Team (Late st Contact Info) Description 08/09/2024 Lab Requisition [facility] - Main Lab [address] [facility] [place] [address] Tabby Bledsoe MD [address] [address] Bacteremia Social History Tobacco Use Types Packs/Day [...] documented as of this encounter Care Teams Bean Snapper Relationship Specialty Start Date End Date Uday Sheehan MD [address] [place] [address] PCP - General Combat Systems Engineer 12/19/16 documented as of this encounter
--- OUTSIDE RECORDS SUMMARY | 2025-03-08 21:07 | XMS_ITS | Encounter Summary ---
Author Organization [facility] Address [address] [place] [address] Care Team Providers Care Roaster Supervisor Name Role Phone Uday Sheehan MD Primary Care Provider [phone] Encounter Details Date Type Department Care Team (Late st Contact Info) Description 12/13/2024 Lab Requisition [facility] - Main Lab [address] [place] [address] Tabby Bledsoe MD [address] [address] Bacteremia Social History Tobacco Use Types Packs/Day [...] Associated Diagnosis Comments COMPLETE BLOOD COUNT Routine 12/16/2024 9:29 AM EDT Bacteremia COMPREHENSIVE METABOLIC PANEL Routine 12/16/2024 9:29 AM EDT Bacteremia documented in this encounter Results * (ABNORMAL) Comprehensive metabolic panel (12/16/2024 9:29 AM EDT) Sodium 139 133 - 145 mmol/L LAB CHEMISTRY METHOD 12/16/2024 12:23 PM EDT [facility] Potassium 4.5 3.5 - 5.5 mmol/L LAB CHEMISTRY METHOD 12/16/2024 12:23 PM [facility] Chloride 105 96 - 110 mmol/L LAB CHEMISTRY METHOD 12/16/2024 12:23 PM [facility] CO2 28 21 - 32 mmol/L LAB CHEMISTRY METHOD 12/16/2024 12:23 PM [facility] Anion Gap 6 3 - 11 LAB CHEMISTRY METHOD 12/16/2024 12:23 PM [facility] Glucose 184(H) 70 - 100 mg/dL LAB CHEMISTRY METHOD 12/16/2024 12:23 PM [facility] BUN 60(H) 5 - 25 mg/dL LAB CHEMISTRY METHOD 12/16/2024 12:23 PM [facility] Creatinine 1.34(H) 0.70 - 1.30 mg/dL LAB CHEMISTRY METHOD 12/16/2024 12:23 PM [facility] eGFR 52(L) >=60 mL/min/1. 73m2 LAB CHEMISTRY METHOD 12/16/2024 12:23 PM [facility] Comment:Calculation based on the Chronic Kidney Disease Epidemiology Collaboration (CKD-EPI) equation refit without adjustment for race. BUN/Creatinine Ratio 44.8 LAB CHEMISTRY METHOD 12/16/2024 12:23 PM [facility] Calcium 8.2(L) 8.5 - 10.5 mg/dL LAB CHEMISTRY METHOD 12/16/2024 12:23 PM [facility] AST (SGOT) 93(H) 10 - 42 unit/L LAB CHEMISTRY METHOD 12/16/2024 12:23 PM [facility] ALT (SGPT) 78(H) 10 - 60 unit/L LAB CHEMISTRY METHOD 12/16/2024 12:23 PM [facility] Alkaline Phosphatase 113 42 - 121 unit/L LAB CHEMISTRY METHOD 12/16/2024 12:23 PM [facility] Total Protein 5.7(L) 6.0 - 8.0 g/dL LAB CHEMISTRY METHOD 12/16/2024 12:23 PM EDT [facility] Albumin 1.4(L) 3.2 - 5.0 g/dL LAB CHEMISTRY METHOD 12/16/2024 12:23 PM EDT [facility] Total Bilirubin 0.3 0.0 - 1.4 mg/dL LAB CHEMISTRY METHOD 12/16/2024 12:23 PM EDT [facility] Blood Venous blood specimen / Unknown Venipuncture / Unknown 12/16/2024 9:29 AM EDT 12/16/2024 10:55 AM EDT us Tabby Bledsoe MD LAB BLOOD ORDERABLES Fin al Result [facility] [address] [place] [address], * (ABNORMAL) Complete blood count (12/16/2024 9:29 AM EDT) WBC 5.5 4.8 - 10.8 K/mcL LAB HEMETOLOGY METHOD 12/16/2024 2:48 PM EDT [facility] RBC 2.60(L) 4.50 - 5.50 M/mcL LAB HEMETOLOGY METHOD 12/16/2024 2:48 PM EDT [facility] Hemoglobin 6.9(L) 13.5 - 17.5 g/dL LAB HEMETOLOGY METHOD 12/16/2024 2:48 PM EDT [facility] Hematocrit 24.8(L) 42.0 - 54.0 % LAB HEMETOLOGY METHOD 12/16/2024 2:48 PM EDT [facility] MCV 96.1 79.0 - 98.0 FL LAB HEMETOLOGY METHOD 12/16/2024 2:48 PM EDT [facility] MCH 26.7(L) 27.0 - 32.0 pcg LAB HEMETOLOGY METHOD 12/16/2024 2:48 PM EDT [facility] MCHC 27.8(L) 32.0 - 37.0 g/dL LAB HEMETOLOGY METHOD 12/16/2024 2:48 PM EDT [facility] RDW 18.9(H) 11.0 - 15.0 % LAB HEMETOLOGY METHOD 12/16/2024 2:48 PM EDT [facility] Platelets 223 130 - 400 K/mcL LAB HEMETOLOGY METHOD 12/16/2024 2:48 PM EDT [facility] MPV 9.7 7.0 - 11.0 FL LAB HEMETOLOGY METHOD 12/16/2024 2:48 PM EDT [facility] NRBC 0.0 <1.0 % LAB HEMETOLOGY METHOD 12/16/2024 2:48 PM EDT [facility] NRBC Absolute 0.00 <0.10 K/mcL LAB HEMETOLOGY METHOD 12/16/2024 2:48 PM EDT [facility] Blood Venous blood specimen / Unknown Venipuncture / Unknown 12/16/2024 9:29 AM EDT 12/16/2024 10:55 AM EDT Tabby Bledsoe MD LAB BLOOD ORDERABLES Fin al Result [facility] [address] [place] [address], documented in this encounter Visit Diagnoses Diagnosis Bacteremia documented in this encounter Additional Health Concerns Infection Onset Date Last Indicated Resolved Time ESBL 06/22/2024 06/22/2024 documented as of this encounter Care Teams Roaster Supervisor Relationship Specialty Start Date End Date Uday Sheehan MD [address] [place] [address] Dr Donna [place] PCP - General Office Assistant Receptionist 12/19/16 documented as of this encounter
--- OUTSIDE RECORDS SUMMARY | 2025-03-08 21:07 | XMS_ITS | Encounter Summary ---
Author Organization [facility] Address [address] [place] [address] Care Team Providers Care Insurance Claims Examiner Name Role Phone Uday Sheehan MD Primary Care Provider [phone] Encounter Details Date Type Department Care Team (Late st Contact Info) Description 11/22/2024 Lab Requisition [facility] - Main Lab [address] [facility] [place] [address] Tabby Bledsoe MD [address] [facility] [address] [place] [address] Osteomyelitis, unspecified (CMS/HCC V24, CMS/HCC V28); Bacteremia; Anemia, unspecified; Chronic kidney disease, unspecified Social [...] Procedure Name Priority Date/Time Associated Diagnosis Comments LIPID PANEL WITH REFLEX TO DIRECT LDL Routine 11/22/2024 7:44 AM EDT Osteomyelitis, unspecified (CMS/HCC V24, CMS/HCC V28) Bacteremia Anemia, unspecified Chronic kidney disease, unspecified COMPLETE BLOOD COUNT Routine 11/22/2024 7:44 AM EDT Osteomyelitis, unspecified (CMS/HCC V24, CMS/HCC V28) Bacteremia Anemia, unspecified Chronic kidney disease, unspecified COMPREHENSIVE METABOLIC PANEL Routine 11/22/2024 7:44 AM EDT Osteomyelitis, unspecified (CMS/HCC V24, CMS/HCC V28) Bacteremia Anemia, unspecified Chronic kidney disease, unspecified documented in this encounter Results * (ABNORMAL) Lipid panel with reflex to direct LDL (11/22/2024 7:44 AM EDT) Cholesterol 86 0 - 200 mg/dL LAB CHEMISTRY METHOD 11/22/2024 10:35 AM EDT [facility] Triglycerides 52 0 - 150 mg/dL LAB CHEMISTRY METHOD 11/22/2024 10:35 AM EDT [facility] HDL 33(L) >=40 mg/dL LAB CHEMISTRY METHOD 11/22/2024 10:35 AM T [facility] LDL Calculated 43 0 - 100 mg/dL LAB CHEMISTRY METHOD 11/22/2024 10:35 AM EDT [facility] VLDL Cholesterol Da 10.4 mg/dL LAB CHEMISTRY METHOD 11/22/2024 10:35 AM T [facility] Non HDL Chol. (LDL+VLDL) 53 <145 mg/dL LAB CHEMISTRY METHOD 11/22/2024 10:35 AM EDT [facility] Chol/HDL Ratio 2.6 0.0 - 4.4 LAB CHEMISTRY METHOD 11/22/2024 10:35 AM [facility] Blood Venous blood specimen / Unknown Venipuncture / Unknown 11/22/2024 7:44 AM EDT 11/22/2024 9:32 AM EDT us Tabby Bledsoe MD LAB BLOOD ORDERABLES Fin al Result [facility] [address] [place] [address], * (ABNORMAL) Comprehensive metabolic panel (11/22/2024 7:44 AM EDT) Sodium 142 133 - 145 mmol/L LAB CHEMISTRY METHOD 11/22/2024 10:38 AM [facility] Potassium 4.0 3.5 - 5.5 mmol/L LAB CHEMISTRY METHOD 11/22/2024 10:38 AM [facility] Chloride 106 96 - 110 mmol/L LAB CHEMISTRY METHOD 11/22/2024 10:38 AM [facility] CO2 29 21 - 32 mmol/L LAB CHEMISTRY METHOD 11/22/2024 10:38 AM [facility] Anion Gap 7 3 - 11 LAB CHEMISTRY METHOD 11/22/2024 10:38 AM [facility] Glucose 96 70 - 100 mg/dL LAB CHEMISTRY METHOD 11/22/2024 10:38 AM [facility] BUN 39(H) 5 - 25 mg/dL LAB CHEMISTRY METHOD 11/22/2024 10:38 AM [facility] Creatinine 1.36(H) 0.70 - 1.30 mg/dL LAB CHEMISTRY METHOD 11/22/2024 10:38 AM [facility] eGFR 51(L) >=60 mL/min/1. 73m2 LAB CHEMISTRY METHOD 11/22/2024 10:38 AM [facility] Comment:Calculation based on the Chronic Kidney Disease Epidemiology Collaboration (CKD-EPI) equation refit without adjustment for race. BUN/Creatinine Ratio 28.7 LAB CHEMISTRY METHOD 11/22/2024 10:38 AM [facility] Calcium 8.1(L) 8.5 - 10.5 mg/dL LAB CHEMISTRY METHOD 11/22/2024 10:38 AM [facility] AST (SGOT) 32 10 - 42 unit/L LAB CHEMISTRY METHOD 11/22/2024 10:38 AM [facility] ALT (SGPT) 32 10 - 60 unit/L LAB CHEMISTRY METHOD 11/22/2024 10:38 AM [facility] Alkaline Phosphatase 102 42 - 121 unit/L LAB CHEMISTRY METHOD 11/22/2024 10:38 AM EDT [facility] Total Protein 5.9(L) 6.0 - 8.0 g/dL LAB CHEMISTRY METHOD 11/22/2024 10:38 AM EDT [facility] Albumin 1.4(L) 3.2 - 5.0 g/dL LAB CHEMISTRY METHOD 11/22/2024 10:38 AM T [facility] Total Bilirubin 0.4 0.0 - 1.4 mg/dL LAB CHEMISTRY METHOD 11/22/2024 10:38 AM [facility] Blood Venous blood specimen / Unknown Venipuncture / Unknown 11/22/2024 7:44 AM EDT 11/22/2024 9:32 AM EDT Tabby Bledsoe MD LAB BLOOD ORDERABLES Fin al Result [facility] [address] [place] [address], * (ABNORMAL) Complete blood count (11/22/2024 7:44 AM EDT) WBC 6.6 4.8 - 10.8 K/mcL LAB HEMETOLOGY METHOD 11/22/2024 10:01 AM T [facility] RBC 2.70(L) 4.50 - 5.50 M/mcL LAB HEMETOLOGY METHOD 11/22/2024 10:01 AM [facility] Hemoglobin 7.4(L) 13.5 - 17.5 g/dL LAB HEMETOLOGY METHOD 11/22/2024 10:01 AM [facility] Hematocrit 25.2(L) 42.0 - 54.0 % LAB HEMETOLOGY METHOD 11/22/2024 10:01 AM EDT [facility] MCV 93.0 79.0 - 98.0 FL LAB HEMETOLOGY METHOD 11/22/2024 10:01 AM EDT [facility] MCH 27.3 27.0 - 32.0 pcg LAB HEMETOLOGY METHOD 11/22/2024 10:01 AM EDT [facility] MCHC 29.4(L) 32.0 - 37.0 g/dL LAB HEMETOLOGY METHOD 11/22/2024 10:01 AM EDT [facility] RDW 18.6(H) 11.0 - 15.0 % LAB HEMETOLOGY METHOD 11/22/2024 10:01 AM EDT [facility] Platelets 251 130 - 400 K/mcL LAB HEMETOLOGY METHOD 11/22/2024 10:01 AM EDT [facility] MPV 9.5 7.0 - 11.0 FL LAB HEMETOLOGY METHOD 11/22/2024 10:01 AM EDT [facility] NRBC 0.0 <1.0 % LAB HEMETOLOGY METHOD 11/22/2024 10:01 AM EDT [facility] NRBC Absolute 0.00 <0.10 K/mcL LAB HEMETOLOGY METHOD 11/22/2024 10:01 AM [facility] Blood Venous blood specimen / Unknown Venipuncture / Unknown 11/22/2024 7:44 AM EDT 11/22/2024 9:32 AM EDT us Tabby Bledsoe MD LAB BLOOD ORDERABLES Fin al Result [facility] [address] [place] [address], documented in this encounter Visit Diagnoses Diagnosis Osteomyelitis, unspecified (CMS/HCC V24, CMS/HCC V28) Bacteremia Anemia, unspecified Chronic kidney disease, unspecified documented in this encounter Additional Health Concerns Infection Onset Date Last Indicated Resolved Time ESBL 06/22/2024 06/22/2024 documented as of this encounter Care Teams Insurance Claims Examiner Relationship Specialty Start Date End Date Uday Sheehan MD [address] [place] [address] Dr Donna [place] PCP - General Rn Ostomy 12/19/16 documented as of this encounter
--- OUTSIDE RECORDS SUMMARY | 2025-03-08 21:07 | XMS_ITS | Encounter Summary ---
Author Organization [facility] Address [address] [place] [address] Care Team Providers Care Stem Frazer Name Role Phone Uday Sheehan MD Primary Care Provider [phone] Encounter Details Date Type Department Care Team (Late st Contact Info) Description 11/12/2024 Lab Requisition [facility] - Main Lab [address] [place] [address] Tabby Bledsoe MD [address] [address] Anemia, unspecified Social History Tobacco Use Types [...] AM EDT) WBC 6.6 4.8 - 10.8 K/[facility] LAB HEMETOLOGY METHOD 11/12/2024 10:31 AM EDT [facility] RBC 2.50(L) 4.50 - 5.50 /[facility] LAB HEM[facility]OLOGY METHOD [facility] Hemoglobin 6.8(L) 13.5 - 17.5 g/dL LAB HEMETOLOGY METHOD 11/12/2024 10:31 AM [facility] Hematocrit 23.1(L) 42.0 - 54.0 % LAB HEMETOLOGY METHOD 11/12/2024 10:31 AM [facility] MCV 92.0 79.0 - 98.0 FL LAB HEMETOLOGY METHOD 11/12/2024 10:31 AM [facility] MCH 27.1 27.0 - 32.0 pcg LAB HEMETOLOGY METHOD 11/12/2024 10:31 AM [facility] MCHC 29.4(L) 32.0 - 37.0 g/dL LAB HEMETOLOGY METHOD 11/12/2024 10:31 AM [facility] RDW 17.6(H) 11.0 - 15.0 % LAB HEMETOLOGY METHOD 11/12/2024 10:31 AM [facility] Platelets 246 130 - 400 K/mcL LAB HEMETOLOGY METHOD 11/12/2024 10:31 AM [facility] MPV 9.8 7.0 - 11.0 FL LAB HEMETOLOGY METHOD 11/12/2024 10:31 AM [facility] NRBC 0.0 <1.0 % LAB HEMETOLOGY METHOD 11/12/2024 10:31 AM [facility] NRBC Absolute 0.00 <0.10 K/mcL LAB HEMETOLOGY METHOD 11/12/2024 10:31 AM [facility] Blood Venous blood specimen / Unknown Venipuncture / Unknown 11/12/2024 5:45 AM EDT 11/12/2024 9:47 AM EDT us Tabby Bledsoe MD LAB BLOOD ORDERABLES Fin al Result [facility] [address] [place] [address], documented in this encounter Visit Diagnoses Diagnosis Anemia, unspecified documented in this encounter Additional Health Concerns Infection Onset Date Last Indicated Resolved Time ESBL 06/22/2024 06/22/2024 documented as of this encounter Care Teams Stem Frazer Relationship Specialty Start Date End Date Uday Sheehan MD [address] [place] [address] Dr Butler [address] [place] [address] PCP - General Hide Mill Man 12/19/16 documented as of this encounter
--- OUTSIDE RECORDS SUMMARY | 2025-03-08 21:07 | XMS_ITS | Encounter Summary ---
Author Organization [facility] Address [address] [place] [address] Care Team Providers Care Surface Grinder Name Role Phone Uday Sheehan MD Primary Care Provider [phone] Encounter Details Date Type Department Care Team (Late st Contact Info) Description 07/12/2024 Lab Requisition [facility] - Main Lab [address] [facility] [place] [address] Tabby Bledsoe MD [address] [address] Bacteremia Social History Tobacco Use Types Packs/Day [...] of this encounter Care Teams Surface Grinder Relationship Specialty Start Date End Date Uday Sheehan MD [address] [place] [address] PCP - General Equipment Engineering Technician 12/19/16 documented as of this encounter
--- OUTSIDE RECORDS SUMMARY | 2025-03-08 21:07 | XMS_ITS | Encounter Summary ---
Author Organization [facility] Address [address] [place] [address] Care Team Providers Care Pattern Hanger Name Role Phone Uday Sheehan MD Primary Care Provider [phone] Encounter Details Date Type Department Care Team (Late st Contact Info) Description 08/03/2024 Lab Requisition [facility] - Main Lab [address] [place] [address] Tabby Bledsoe MD [address] [address] Bacteremia Social History Tobacco Use Types Packs/Day [...] LAB CHEMISTRY METHOD 08/05/2024 1:55 PM EST [facility] Potassium 3.6 3.5 - 5.5 mmol/L LAB CHEMISTRY METHOD 08/05/2024 1:55 PM [facility] Chloride 106 96 - 110 mmol/L LAB CHEMISTRY METHOD 08/05/2024 1:55 PM [facility] CO2 25 21 - 32 mmol/L LAB CHEMISTRY METHOD 08/05/2024 1:55 PM [facility] Anion Gap 10 3 - 11 LAB CHEMISTRY METHOD 08/05/2024 1:55 PM [facility] Glucose 70 70 - 100 mg/dL LAB CHEMISTRY METHOD 08/05/2024 1:55 PM [facility] BUN 31(H) 5 - 25 mg/dL LAB CHEMISTRY METHOD 08/05/2024 1:55 PM [facility] Creatinine 2.20(H) 0.70 - 1.30 mg/dL LAB CHEMISTRY METHOD 08/05/2024 1:55 PM [facility] eGFR 29(L) >=60 mL/min/1. 73m2 LAB CHEMISTRY METHOD 08/05/2024 1:55 PM [facility] Comment:Calculation based on the Chronic Kidney Disease Epidemiology Collaboration (CKD-EPI) equation refit without adjustment for race. BUN/Creatinine Ratio 14.1 LAB CHEMISTRY METHOD 08/05/2024 1:55 PM [facility] Calcium 8.3(L) 8.5 - 10.5 mg/dL LAB CHEMISTRY METHOD 08/05/2024 1:55 PM [facility] AST (SGOT) 30 10 - 42 unit/L LAB CHEMISTRY METHOD 08/05/2024 1:55 PM [facility] ALT (SGPT) 17 10 - 60 unit/L LAB CHEMISTRY METHOD 08/05/2024 1:55 PM [facility] Alkaline Phosphatase 103 42 - 121 unit/L LAB CHEMISTRY METHOD 08/05/2024 1:55 PM [facility] Total Protein 5.4(L) 6.0 - 8.0 g/dL LAB CHEMISTRY METHOD 08/05/2024 1:55 PM EST [facility] LAB Albumin 1.4(L) 3.2 - 5.0 g/dL LAB CHEMISTRY METHOD 08/05/2024 1:55 PM [facility] Total Bilirubin 0.3 0.0 - 1.4 mg/dL LAB CHEMISTRY METHOD 08/05/2024 1:55 PM [facility] Blood Venous blood specimen / Unknown Venipuncture / Unknown 08/05/2024 7:45 AM EST 08/05/2024 12:00 PM EST us Tabby Bledsoe MD LAB BLOOD ORDERABLES Fin al Result [facility] [address] [place] [address], [place] [phone] * (ABNORMAL) Complete blood count (08/05/2024 7:45 AM EST) WBC 11.9(H) 4.8 - 10.8 K/mcL LAB HEMETOLOGY METHOD 08/05/2024 1:29 PM [facility] RBC 2.50(L) 4.50 - 5.50 M/mcL LAB HEMETOLOGY METHOD 08/05/2024 1:29 PM [facility] Hemoglobin 6.5(L) 13.5 - 17.5 g/dL LAB HEMETOLOGY METHOD 08/05/2024 1:29 PM [facility] Hematocrit 22.0(L) 42.0 - 54.0 % LAB HEMETOLOGY METHOD 08/05/2024 1:29 PM [facility] MCV 87.6 79.0 - 98.0 FL LAB HEMETOLOGY METHOD 08/05/2024 1:29 PM [facility] MCH 25.9(L) 27.0 - 32.0 pcg LAB HEMETOLOGY METHOD 08/05/2024 1:29 PM EST [facility] MCHC 29.5(L) 32.0 - 37.0 g/dL LAB HEMETOLOGY METHOD 08/05/2024 1:29 PM [facility] RDW 19.6(H) 11.0 - 15.0 % LAB HEMETOLOGY METHOD 08/05/2024 1:29 PM [facility] Platelets 268 130 - 400 K/mcL LAB HEMETOLOGY METHOD 08/05/2024 1:29 PM [facility] MPV 9.0 7.0 - 11.0 FL LAB HEMETOLOGY METHOD 08/05/2024 1:29 PM [facility] NRBC 0.0 <1.0 % LAB HEMETOLOGY METHOD 08/05/2024 1:29 PM [facility] NRBC Absolute 0.00 <0.10 K/mcL LAB HEMETOLOGY METHOD 08/05/2024 1:29 PM [facility] Blood Venous blood specimen / Unknown Venipuncture / Unknown 08/05/2024 7:45 AM EST 08/05/2024 12:00 PM EST Tabby Bledsoe MD LAB BLOOD ORDERABLES Fin al Result [facility] [address] [place] [address], documented in this encounter Visit Diagnoses Diagnosis Bacteremia documented in this encounter Additional Health Concerns Infection Onset 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
--- OUTSIDE RECORDS SUMMARY | 2025-03-08 21:07 | XMS_ITS | Encounter Summary ---
Author Organization [facility] Address [address] [place] [address] Care Team Providers Care Tick Inspector Name Role Phone Uday Sheehan MD Primary Care Provider [phone] Encounter Details Date Type Department Care Team (Late st Contact Info) Description 12/17/2024 Lab Requisition [facility] - Main Lab [address] [place] [address] Tabby Bledsoe MD [address] [address] Anemia, unspecified Social History Tobacco Use Types [...] Associated Diagnosis Comments COMPLETE BLOOD COUNT Routine 12/18/2024 7:45 AM EDT Anemia, unspecified COMPREHENSIVE METABOLIC PANEL Routine 12/18/2024 7:45 AM EDT Anemia, unspecified documented in this encounter Results * (ABNORMAL) Comprehensive metabolic panel (12/18/2024 7:45 AM EDT) Sodium 140 133 - 145 mmol/L LAB CHEMISTRY METHOD 12/18/2024 1:24 PM EDT [facility] Potassium 4.3 3.5 - 5.5 mmol/L LAB CHEMISTRY METHOD 12/18/2024 1:24 PM [facility] Chloride 105 96 - 110 mmol/L LAB CHEMISTRY METHOD 12/18/2024 1:24 PM [facility] CO2 26 21 - 32 mmol/L LAB CHEMISTRY METHOD 12/18/2024 1:24 PM [facility] Anion Gap 9 3 - 11 LAB CHEMISTRY METHOD 12/18/2024 1:24 PM [facility] Glucose 104(H) 70 - 100 mg/dL LAB CHEMISTRY METHOD 12/18/2024 1:24 PM [facility] BUN 56(H) 5 - 25 mg/dL LAB CHEMISTRY METHOD 12/18/2024 1:24 PM [facility] Creatinine 1.26 0.70 - 1.30 mg/dL LAB CHEMISTRY METHOD 12/18/2024 1:24 PM [facility] eGFR 56(L) >=60 mL/min/1. 73m2 LAB CHEMISTRY METHOD 12/18/2024 1:24 PM [facility] Comment:Calculation based on the Chronic Kidney Disease Epidemiology Collaboration (CKD-EPI) equation refit without adjustment for race. BUN/Creatinine Ratio 44.4 LAB CHEMISTRY METHOD 12/18/2024 1:24 PM [facility] Calcium 8.3(L) 8.5 - 10.5 mg/dL LAB CHEMISTRY METHOD 12/18/2024 1:24 PM [facility] AST (SGOT) 97(H) 10 - 42 unit/L LAB CHEMISTRY METHOD 12/18/2024 1:24 PM [facility] ALT (SGPT) 91(H) 10 - 60 unit/L LAB CHEMISTRY METHOD 12/18/2024 1:24 PM [facility] Alkaline Phosphatase 126(H) 42 - 121 unit/L LAB CHEMISTRY METHOD 12/18/2024 1:24 PM [facility] Total Protein 6.1 6.0 - 8.0 g/dL LAB CHEMISTRY METHOD 12/18/2024 1:24 PM EDT [facility] Albumin 1.6(L) 3.2 - 5.0 g/dL LAB CHEMISTRY METHOD 12/18/2024 1:24 PM EDT [facility] Total Bilirubin 0.3 0.0 - 1.4 mg/dL LAB CHEMISTRY METHOD 12/18/2024 1:24 PM EDT [facility] Blood Venous blood specimen / Unknown Venipuncture / Unknown 12/18/2024 7:45 AM EDT 12/18/2024 10:57 AM EDT us Tabby Bledsoe MD LAB BLOOD ORDERABLES Fin al Result [facility] [address] [place] [address], * (ABNORMAL) Complete blood count (12/18/2024 7:45 AM EDT) WBC 7.1 4.8 - 10.8 K/mcL LAB HEMETOLOGY METHOD 12/18/2024 11:10 AM T [facility] RBC 2.70(L) 4.50 - 5.50 M/mcL LAB HEMETOLOGY METHOD 12/18/2024 11:10 AM EDT [facility] Hemoglobin 7.2(L) 13.5 - 17.5 g/dL LAB HEMETOLOGY METHOD 12/18/2024 11:10 AM EDT [facility] Hematocrit 25.6(L) 42.0 - 54.0 % LAB HEMETOLOGY METHOD 12/18/2024 11:10 AM EDT [facility] MCV 94.8 79.0 - 98.0 FL LAB HEMETOLOGY METHOD 12/18/2024 11:10 AM T [facility] MCH 26.7(L) 27.0 - 32.0 pcg LAB HEMETOLOGY METHOD 12/18/2024 11:10 AM EDT [facility] MCHC 28.1(L) 32.0 - 37.0 g/dL LAB HEMETOLOGY METHOD 12/18/2024 11:10 AM EDT [facility] RDW 18.9(H) 11.0 - 15.0 % LAB HEMETOLOGY METHOD 12/18/2024 11:10 AM EDT [facility] Platelets 246 130 - 400 K/mcL LAB HEMETOLOGY METHOD 12/18/2024 11:10 AM EDT [facility] MPV 9.6 7.0 - 11.0 FL LAB HEMETOLOGY METHOD 12/18/2024 11:10 AM EDT [facility] NRBC 0.0 <1.0 % LAB HEMETOLOGY METHOD 12/18/2024 11:10 AM EDT [facility] NRBC Absolute 0.00 <0.10 K/mcL LAB HEMETOLOGY METHOD 12/18/2024 11:10 AM EDT [facility] Blood Venous blood specimen / Unknown Venipuncture / Unknown 12/18/2024 7:45 AM EDT 12/18/2024 10:57 AM EDT Tabby Bledsoe MD LAB BLOOD ORDERABLES Fin al Result [facility] [address] [place] [address], documented in this encounter Visit Diagnoses Diagnosis Anemia, unspecified documented in this encounter Additional Health Concerns Infection Onset Date Last Indicated Resolved Time ESBL 06/22/2024 06/22/2024 documented as of this encounter Care Teams Tick Inspector Relationship Specialty Start Date End Date Uday Sheehan MD [address] [place] [address] Dr Donna [place] PCP - General Radiographer 12/19/16 documented as of this encounter
--- OUTSIDE RECORDS SUMMARY | 2025-03-08 21:07 | XMS_ITS | Encounter Summary ---
Author Organization [facility] Address [address] [place] [address] Care Team Providers Care Technical Support Associate Name Role Phone Uday Sheehan MD Primary Care Provider [phone] Encounter Details Date Type Department Care Team (Late st Contact Info) Description 12/31/2024 Lab Requisition [facility] - Main Lab [address] [place] [address] Tabby Bledsoe MD [address] [address] Essential (primary) hypertension; Anemia, unspecified; Weakness Social History Tobacco Use Types Packs/Day Years [...] Procedure Name Priority Date/Time Associated Diagnosis Comments HEPATIC FUNCTION PANEL Routine 12/31/2024 4:50 AM EDT Essential (primary) hypertension Anemia, unspecified Weakness documented in this encounter Results * (ABNORMAL) Hepatic function panel (12/31/2024 4:50 AM EDT) Total Protein 6.3 6.0 - 8.0 g/dL LAB CHEMISTRY METHOD 12/31/2024 10:52 AM EDT [facility] Albumin 1.5(L) 3.2 - 5.0 g/dL LAB CHEMISTRY METHOD 12/31/2024 10:52 AM EDT [facility] Total Bilirubin 0.3 0.0 - 1.4 mg/dL LAB CHEMISTRY METHOD 12/31/2024 10:52 AM EDT [facility] Bilirubin, Direct 0.1 0.0 - 0.3 mg/dL LAB CHEMISTRY METHOD 12/31/2024 10:52 AM EDT [facility] Bilirubin, Indirect 0.2 0.0 - 1.1 mg/dL LAB CHEMISTRY METHOD 12/31/2024 10:52 AM EDT [facility] ALT (SGPT) 65(H) 10 - 60 unit/L LAB CHEMISTRY METHOD 12/31/2024 10:52 AM EDT [facility] AST (SGOT) 43(H) 10 - 42 unit/L LAB CHEMISTRY METHOD 12/31/2024 10:52 AM EDT [facility] Alkaline Phosphatase 186(H) 42 - 121 unit/L LAB CHEMISTRY METHOD 12/31/2024 10:52 AM EDT [facility] Blood Venous blood specimen / Unknown Venipuncture / Unknown 12/31/2024 4:50 AM EDT 12/31/2024 9:30 AM EDT us Tabby Bledsoe MD LAB BLOOD ORDERABLES Fin al Result [facility] [address] [place] [address], documented in this encounter Visit Diagnoses Diagnosis Essential (primary) hypertension Unspecified essential hypertension Anemia, unspecified Weakness Other malaise and fatigue documented in this encounter Additional Health Concerns Infection Onset Date Last Indicated Resolved Time ESBL 06/22/2024 06/22/2024 documented as of this encounter Care Teams Technical Support Associate Relationship Specialty Start Date End Date Uday Sheehan MD [address] [facility] [address] [place] PCP - General Business Case Analyst 12/19/16 documented as of this encounter
--- OUTSIDE RECORDS SUMMARY | 2025-03-08 21:07 | XMS_ITS ---
Author Organization [facility] Care Team Providers Care Business Planner Name Role Phone Natanael Zazueta Unavailable Unavailable Tabby Bledsoe Unavailable Unavailable Caty VIVAR, Yeimy Umaña Unavailable Unavailable Karina Myers Unavailable Unavailable Merlyn Land Unavailable Unavailable Annie Lombardi Unavailable Unavailable Erica Charles Unavailable Unavailable Allergies and adverse reactions Code CodeSystem Substance Reaction Severity StartDate Concern Status 8701 RXNORM Procaine Unknown 07/10/2024 active 5640 RXNORM Ibuprofen Unknown 07/10/2024 active 3423 RXNORM HYDROmorphone Unknown 07/10/2024 active Care Team Name Role Address Phone Organization Dates Tabby Bledsoe PCP [address] [address], [place], [address], [place] (Office): : [facility] 09/17/2024 - present [place] [place], [facility] 09/17/2024 - present Yeimy Byrne NP [address] [facility] [address] (Office): [facility] 09/17/2024 - [place], [address], [facility] (Office): [facility] 09/17/2024 - present Merlyn Land [place], [facility] 09/17/2024 - present Annie Lombardi [place], [facility] 09/17/2024 - present Erica Charles [address] [facility] [address], [address], [facility] (Office): [facility] 09/17/2024 - present Goals Section Goals Description Status Target Date Ramon's Pressure ulcer kristen l show signs of healing and remain free from infection by/through review date. Active 04/08/2025 Ramon has stated preferenc e for self-directed activities in the comfort of his room, He will be open to room visits through next review date. Active 04/08/2025 Ramon will be able to comm unicate basic needs on a daily basis through the review date. Active 04/08/2025 Ramon will be able to make basic needs known on a daily basis through the review date. Active 04/08/2025 Ramon will be free of falls through the review date. Active 04/08/2025 Ramon will be/remain free from catheter-related trauma through review date. Active 04/08/2025 Ramon will be/remain free of psychotropic drug related complications, including movement disorder, discomfort, hypotension, gait disturbance, constipation/impaction or cognitive/behavioral impairment through review date. Active 0 04/08/2025 Ramon will exhibit indicat ors of depression, anxiety or sad mood less than daily by review date. Active 04/08/2025 Ramon will have an underst anding of the disease process and the importance of compliance with treatment as evidenced by through the review date. Active 04/08/2025 Ramon will have clear lung sounds, heart rate and rhythm within normal limits through the review date. Active 04/08/2025 Ramon will have no complic ations r/t wounds of the coccyx through the review date. Active 04/08/2025 Ramon will have no s/sx of poor oxygen absorption through the review date. Active 04/08/2025 Ramon will maintain curren t level of cognitive function through the review date. Active 04/08/2025 Ramon will maintain curren t level of function in self- care through the review date. Active 04/08/2025 Ramon will maintain curren t level of mobility through review date. Active 04/08/2025 Ramon will maintain or dev elop clean and intact skin by the review date. Active 04/08/2025 Ramon will remain free fro m discomfort, complications or s/sx related to gastro-intestinal alterations through review date. Active 04/08/2025 Ramon will remain free of complications related to immobility, including contractures, thrombus formation, skin-breakdown, fall related injury through the next review date. Active Ramon will show no s/sx of Urinary infection through review date. Active 04/08/2025 Ramon's diet texture will be appropriate to meet needs, select preferences AEB po's >75% most meals/supplement, no s/s of aspiration, no significant wt changes, no s/s dehydration, wounds improved. Active 04/08/2025 Ramon's insertion site kristen l be free of s/sx of infection through the review date. Active 04/08/2025 Ramon/HCP/Guardian's Advan renetta Directives will be honored through next review Active 04/08/2025 The resident will have a nor mal bowel movement at least every 3 days through the review date. Active 04/08/2025 The resident will maintain t he ability to seek social contact and stimulation through the review date. Active 04/08/2025 Functional Status Code Name Recorded Time Value Entered By Chair/aaq-ni-bdvyv transfer 03/08/2025 Not assessed KayleeF Eating 03/08/2025 Not assessed KayleeF Lower body dressing 03/08/2025 Not assessed KayleeF Lying to sitting on side of bed 03/08/2025 Not asses sed KayleeF Oral hygiene 03/08/2025 Dependent KayleeF Personal hygiene 03/08/2025 Dependent KayleeF Roll left and right 03/08/2025 Dependent KayleeF Shower/bathe self 03/08/2025 Dependent KayleeF Sit to lying 03/08/2025 Not assessed KayleeF Sit to stand 03/08/2025 Not assessed KayleeF Toilet transfer 03/08/2025 Not assessed KayleeF Toileting hygiene 03/08/2025 Dependent KayleeF Upper body dressing 03/08/2025 Dependent KayleeF Wheel 150 feet 03/08/2025 Not assessed KayleeF Wheel 50 feet with two turns 03/08/2025 Not assessed KayleeF Immunizations Immunization Status Vaccine Details Vaccine Code CodeSystem Date Notes Influenza-High Dose(Flublok) completed created date: 07/23/2024 administer ed date: 04/08/2024 Comirnaty Booster completed SARS-COV-2 (COVID-19) vaccine, mRNA, spike protein, LNP, preservative free, evangelina-sucrose, 30 mcg/0.3 mL dose lotNumber: [id number] expiry: 04/19/2025 309 CVX created date: 01/13/2025 consent date: 01/09/2025 administer ed date: 01/09/2025 Educated by on 01/13/2025 Medications Section Medication Name Status Code CodeSystem Dose Route Frequency Admin Type Sig Text Start Date End Date Vitamin C Oral Tablet active 500 mg Oral two times a day Routine Give 500 mg by mouth two times a day for wound healin g 2024 - Fleet Enema Enema 7-19 GM/118ML active 385748 RXNORM 1 dose Rectal as needed PRN Insert 1 dose rectal ly as needed for Consti pation (Step 3) as needed if no bowel moveme nt for 8 hours after bisaco dyl suppos itory. 2024 - Lactobacillus Oral Tablet active 129582 5 RXNORM 1 tablet Oral two times a day Routine Give 1 tablet by mouth two times a day for abx use 2024 - Fluticasone Propionate Nasal Suspension 50 MCG/ACT active 123292 7 RXNORM 2 spray Nasal in the morning Routine 2 spray in both nostri ls in the mornin g for allerg ies 2024 - Thiamine HCl Oral Tablet active 100 mg Oral one time a day Routine Give 100 mg by mouth one time a day for vitami n 2024 - Milk of Magnesia Suspension 400 MG/5ML active 052321 RXNORM 30 ml Oral as needed PRN Give 30 ml by mouth as needed for Consti pation (Step 1) As needed if no bowel moveme nt for three days. (Do not use for Hemodi alysis patien ts). 2024 - Acetaminophen Tablet 325 MG active 013374 RXNORM 2 tablet Oral as needed PRN [...] 3 grams / 24 hours. 2024 - 154596 RXNORM 2 tablet Oral as needed PRN [...] 2024 - Bisacodyl Suppository 10 MG active 106461 RXNORM 1 suppos itory Rectal as needed PRN Insert 1 suppos itory rectal ly as needed for If no bowel moveme nt for 8 hours after Milk of Magnes ia 2024 - Miconazole Nitrate External Cream 2 % active 443238 RXNORM n/a n/a Topical every 12 hours [...] as needed for Dry eye 2024 - Icy Hot External Patch active n/a n/a Topical in the morning Routine Apply to left knee topica lly in the mornin g for pain relate d to UNSPEC IFIED LACK OF COORDI NATION (R27.9 ) 2024 - Melatonin Oral Capsule 10 MG active 645253 RXNORM 10 mg Oral at bedtime Routine Give 10 mg by mouth at bedtim e relate d to OBSTRU CTIVE SLEEP APNEA (ADULT ) (PEDIA TRIC) (G47.3 3) 2024 - Zofran Oral Tablet 4 MG active 977144 RXNORM 4 mg Oral as needed PRN Give 4 mg by mouth every 8 hours as needed for nausea relate d to PRESSU RE ULCER OF SACRAL REGION , STAGE 4 (L89.1 54) 2024 - Docusate Sodium Oral Capsule 100 MG active 117740 5 RXNORM 200 mg Oral as needed [...] traZODone HCl Oral Tablet 50 MG active 800341 RXNORM 50 mg Oral in the evening Routine Give 50 mg by mouth in the evenin g for anxiet y relate d to UNSPEC IFIED SILVANA IA, UNSPEC IFIED SEVERI TY, WITHOU T BEHAVI ORAL DISTUR BANCE, PSYCHO TIC DISTUR BANCE, MOOD DISTUR BANCE, AND ANXIET Y (F03.9 0);ADJ USTMEN T DISORD ER, 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) 2024 - Levothyroxine Sodium Oral Tablet active 0.1 mg Oral one time a day Routine Give 0.1 mg by mouth one time a day relate d to HYPOTH YROIDI SM, 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 ) 2024 - Doxazosin Mesylate Oral Tablet 2 MG active 271044 RXNORM 2 mg Oral at bedtime Routine Give 2 mg by mouth at bedtim e relate d to RETENT ION OF URINE, UNSPEC IFIED (R33.9 ) hold for SBP <90 2024 - Amiodarone HCl Oral Tablet 200 MG active 259322 RXNORM 200 mg Oral one time a day Routine Give 200 mg by mouth one time a day relate d to 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 ) 2024 - Lomotil Oral Tablet 2.5-0.025 MG active 396887 1 RXNORM 1 tablet Oral as needed PRN Give 1 tablet by mouth every 6 hours as needed for Diarrh ea 2024 - Dakins (full strength) External Solution active n/a n/a Topical every day shift Routine Apply to coccyx topica lly every day shift for coccyx wound 2024 - Simethicone Oral Tablet 80 MG active 1 tablet Oral as needed PRN Give 1 tablet by mouth every 6 hours as needed for gas/bl oating 2024 - Morphine Sulfate (Concentrate) Oral Solution 20 MG/ML aborted 0.5 ml Oral as needed PRN Give 0.5 ml by mouth as needed for pain admini ster 30 minute s prior to dressi ng change as needed 03/04 Gabapentin Oral Tablet 100 MG active 120250 RXNORM 2 tablet Oral two times a day Routine JUSTINA* * Give 2 tablet by mouth two times a day for Pain relate d to PRESSU RE ULCER OF SACRAL REGION , STAGE 4 (L89.1 54) take 2 tablet s two times daily 2024 - Comirnaty Intramuscular Suspension Prefilled Syringe 30 MCG/0.3ML active 085867 1 RXNORM 0.3 ml Intramu scular as needed PRN Inject 0.3 ml intram uscula rly as needed for vaccin e give x1 2024 - MiraLax Oral Powder 17 GM/SCOOP active 055347 RXNORM 1 scoop Oral as needed PRN Give 1 scoop by mouth every 24 hours as needed for consti pation 2024 - Saline Nasal Lehr Nasal Solution 0.65 % active 1 spray Nasal two times a day Routine 1 spray in both nostri ls two times a day for Prophy laxis relate d to 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 ) 2024 - Aspirin Oral Tablet active 81 mg Oral one time a day Routine Give 81 mg by mouth one time a day relate d to 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 ) 2024 - Morphine Sulfate (Concentrate) Oral Solution 20 MG/ML aborted 0.5 ml Oral four times a day Routine Give 0.5 ml by mouth four times a day for pain AND Give 0.5 ml by mouth every 8 hours as needed for pain 03/07 0.5 ml Oral as needed PRN Give 0.5 ml by mouth four times a day for pain AND Give 0.5 ml by mouth every 8 hours as needed for pain 03/07 Famotidine Oral Tablet 20 MG active 154574 RXNORM 20 mg Oral at bedtime Routine Give 20 mg by mouth at bedtim e for GERD 2024 - Artificial Tears Ophthalmic Solution active 2 drop Ophthal marcelo two times a day Routine Instil l 2 drop in both eyes two times a day for drynes s to both eyes 2024 - Doxycycline Hyclate Oral Tablet 100 MG complete d 155069 3 RXNORM 100 mg Oral two times a day Routine Give 100 mg by mouth two times a day for Wound infect ion until 2024 23:59 03/05 Amoxicillin-P ot Clavulanate Oral Tablet 875-125 MG complete d 911479 RXNORM 1 tablet Oral two times a day Routine Give 1 tablet by mouth two times a day for wound infect ion until 2024 23:59 03/05 Sodium Hypochlorite External Solution 0.5 % active 999215 RXNORM n/a n/a Topical every day shift Routine Apply to Right hip wound topica lly every day shift relate d to PRESSU RE ULCER OF RIGHT HIP, UNSTAG EABLE (L89.2 10) Cleans e with normal saline , apply Dankin 's soaked gauze, apply dry clean dressi ng daily. 08/22/ 2025 - Morphine Sulfate (Concentrate) Oral Solution 20 MG/ML aborted 0.5 ml Oral as needed PRN Give 0.5 ml by mouth every 12 hours as needed for pain admini ster 30 minute s prior to dressi ng change as needed 03/07 Morphine Sulfate Oral Solution 10 MG/5ML active 200433 RXNORM 5 ml Oral four times a day Routine Give 5 ml by mouth four times a day for pain AND Give 5 ml by mouth every 12 hours as needed for pain AND Give 5 ml by mouth as needed for pain admini ster 30 minute s before dressi ng change s 2024 - 187573 RXNORM 5 ml Oral as needed PRN Give 5 ml by mouth four times a day for pain AND Give 5 ml by mouth every 12 hours as needed for pain AND Give 5 ml by mouth as needed for pain admini ster 30 minute s before dressi ng change s 2024 - 083472 RXNORM 5 ml Oral as needed PRN Give 5 ml by mouth four times a day for pain AND Give 5 ml by mouth every 12 hours as needed for pain AND Give 5 ml by mouth as needed for pain admini ster 30 minute s before dressi ng change s 2024 - Mental Status Section Date Assessment Total Score Description 01/08/2025 BIMS 13 cognitively int act CAM 0 No delirium ind icated PHQ-9 01 minimal depress ion 11/07/2024 CAM 0 No delirium ind icated Problems Problem # Description Date of onset Resolved Date Code CodeSystem Concern Status 1 OBSTRUCTIVE AND REFLUX UROPATHY, UNSPECIFIED [address] active 2 PRESSURE ULCER OF LEFT ANKLE, STAGE [address] active 3 PRESSURE ULCER OF RIGHT HIP, UNSTAGEABLE [address] active 4 PRESSURE ULCER OF LEFT HEEL, STAGE [address] active 5 PRESSURE ULCER OF LEFT HIP, STAGE [address] active 6 WEAKNESS 025 01/22/[address] completed 7 ABNORMAL POSTURE 025 01/22/[address] completed 8 MUSCLE WEAKNESS (GENERALIZED) 025 01/22/[address] completed 9 OTHER ABNORMALITIES OF GAIT AND MOBILITY 025 01/22/[address] completed 10 BENIGN PROSTATIC HYPERPLASIA WITH LOWER URINARY TRACT SYMPTOMS [address] active 11 OSTEOMYELITIS OF VERTEBRA, SITE UNSPECIFIED [address] active 12 OTHER RETENTION OF URINE [address] active 13 CELLULITIS OF BUTTOCK 025 09/18/[address] completed 14 ENCOUNTER FOR ADJUSTMENT AND MANAGEMENT OF VASCULAR ACCESS DEVICE 025 09/18/[address] completed 15 EXTENDED SPECTRUM BETA LACTAMASE (ESBL) RESISTANCE 025 09/18/[address] completed 16 IRON DEFICIENCY ANEMIA SECONDARY TO BLOOD LOSS (CHRONIC) 025 09/18/[address] completed 17 KLEBSIELLA PNEUMONIAE [K. PNEUMONIAE] THE CAUSE OF DISEASES CLASSIFIED ELSEWHERE 025 09/04/[address] completed 18 MANAGER OFFICE (CURRENT) USE OF ANTIBIOTICS 025 09/18/[address] completed 19 OSTEOMYELITIS OF VERTEBRA, SACRAL AND SACROCOCCYGEAL REGION 025 09/18/2024681307419 SNOMED CT completed 20 OTHER ABNORMALITIES OF GAIT AND MOBILITY 025 09/18/202491586952 SNOMED CT completed 21 PRESSURE ULCER OF LEFT ANKLE, UNSTAGEABLE [address] active 22 PRESSURE ULCER OF OTHER SITE, UNSTAGEABLE [address] active 23 PRESSURE-INDUCED DEEP TISSUE DAMAGE OF LEFT HEEL [address] active 24 PRESSURE-INDUCED DEEP TISSUE DAMAGE OF RIGHT HEEL [address] active 25 RETENTION OF URINE, UNSPECIFIED [address] active 26 URINARY TRACT INFECTION, SITE NOT SPECIFIED 025 01/22/[address] completed 27 ANEMIA, UNSPECIFIED [address] active 28 ATHEROSCLEROTIC HEART DISEASE OF [place] CORONARY ARTERY WITH UNSPECIFIED ANGINA PECTORIS [address] active 29 NONRHEUMATIC AORTIC (VALVE) STENOSIS [address] active 30 ESSENTIAL (PRIMARY) HYPERTENSION [address] active 31 MUSCLE WEAKNESS (GENERALIZED) 025 09/04/[address] completed 32 MUSCLE WEAKNESS (GENERALIZED) 025 09/18/[address] completed 33 OTHER ABNORMALITIES OF GAIT AND MOBILITY 025 09/04/[address] completed 34 OTHER ENCEPHALOPATHY 025 09/04/[address] completed 35 PRESSURE ULCER OF LEFT ANKLE, STAGE 1 025 09/04/[address] completed 36 PRESSURE ULCER OF RIGHT ANKLE, UNSTAGEABLE [address] active 37 PRESSURE ULCER OF RIGHT HEEL, UNSTAGEABLE [address] active 38 PRESSURE ULCER OF SACRAL REGION, STAGE 4 [address] active 39 UNSPECIFIED LACK OF COORDINATION 025 01/22/[address] completed 40 URINARY TRACT INFECTION, SITE NOT SPECIFIED 025 09/04/[address] completed 41 PRESSURE ULCER OF RIGHT HEEL, STAGE [address] active 42 ADJUSTMENT DISORDER, UNSPECIFIED [address] active 43 PERSONAL HISTORY OF OTHER MENTAL AND BEHAVIORAL DISORDERS 025 07/23/[address] completed 44 ACUTE ON CHRONIC COMBINED SYSTOLIC (CONGESTIVE) AND DIASTOLIC (CONGESTIVE) HEART FAILURE [address] active 45 BACTEREMIA 025 08/19/[address] completed 46 CHRONIC KIDNEY DISEASE, STAGE [address] UNSPECIFIED [address] active 47 CHRONIC SYSTOLIC (CONGESTIVE) HEART FAILURE [address] active 48 DYSPHAGIA, OROPHARYNGEAL PHASE [address] active 49 ENCOUNTER FOR FITTING AND ADJUSTMENT OF URINARY DEVICE [address] active 50 ESSENTIAL (PRIMARY) HYPERTENSION 025 07/11/[address] completed 51 EXTENDED SPECTRUM BETA LACTAMASE (ESBL) RESISTANCE 025 08/19/[address] completed 52 GASTRO-ESOPHAGEAL REFLUX DISEASE WITHOUT ESOPHAGITIS [address] active 53 GASTROSTOMY STATUS [address] active 54 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 025 09/04/[address] completed 55 HYPERLIPIDEMIA, UNSPECIFIED [address] active 56 HYPERTENSIVE CHRONIC KIDNEY DISEASE WITH STAGE 1 THROUGH STAGE 4 CHRONIC KIDNEY DISEASE, OR UNSPECIFIED CHRONIC KIDNEY DISEASE [address] active 57 HYPOTHYROIDISM, UNSPECIFIED [address] active 58 MUSCLE WEAKNESS (GENERALIZED) 025 08/19/[address] completed 59 OBSTRUCTIVE SLEEP APNEA (ADULT) (PEDIATRIC) [address] active 60 OTHER ABNORMALITIES OF GAIT AND MOBILITY 025 08/19/[address] completed 61 OTHER ESCHERICHIA COLI [E. COLI] THE CAUSE OF DISEASES CLASSIFIED ELSEWHERE 025 08/19/[address] completed 62 OTHER HYDRONEPHROSIS 025 08/19/[address] completed 63 PAROXYSMAL ATRIAL FIBRILLATION [address] active 64 PERSONAL HISTORY OF OTHER MENTAL AND BEHAVIORAL DISORDERS [address] active 65 PRESENCE OF UROGENITAL IMPLANTS 025 07/23/[address] completed 66 PRESSURE ULCER OF SACRAL REGION, STAGE 3 025 08/19/[address] completed 67 UNSPECIFIED ATRIAL FIBRILLATION 025 07/11/[address] completed 68 UNSPECIFIED DEMENTIA, UNSPECIFIED SEVERITY, WITHOUT BEHAVIORAL DISTURBANCE, PSYCHOTIC DISTURBANCE, MOOD DISTURBANCE, AND ANXIETY [address] active 69 UNSPECIFIED ESCHERICHIA COLI [E. COLI] THE CAUSE OF DISEASES CLASSIFIED ELSEWHERE 025 08/19/[address] completed 70 UNSPECIFIED LACK OF COORDINATION 025 08/19/[address] completed 71 URINARY TRACT INFECTION, SITE NOT SPECIFIED 025 08/19/[address] completed Reason for Referral No Reasons for Referral Entered Social History Social History Observation Description Start Date End Date Code Code System Current Smoking Status Tobacco smoking consumption unknown [id number] SNOMED CT Sex Assigned At Male 1940 54365-5 [facility] Gender Identity Vital Signs Code Code System Vitals Name Values and Units Timing Information 74017-8 [facility] Pain Level Value=0.0 03/09/2025 9279-1 [facility] Respiratory Rate Value=18.0 Units=/m in 03/09/2025 8310-5 [facility] Body Temperature Value=97.5 Units= F 03/09/2025 59535-5 [facility] O2 % BldC Oximetry Value=92.0 Units= % 03/09/2025 8867-4 [facility] Heart rate Value=65.0 Units=/min 8462-4 [facility] Blood Pressure-Diastolic Value=42 Un its=mmHg 03/09/2025 8480-6 [facility] Blood Pressure-Systolic Sgprb=759 Un its=mmHg 03/09/2025 8302-2 [facility] Height Value=71.0 Units=Inches 11/14/2024 54167-9 [facility] Weight Pelgm=177.6 Units=Lbs 2339-0 [facility] Blood Sugar Npuqd=175.0 Units=mg/dL 08/11/2024
--- OUTSIDE RECORDS SUMMARY | 2025-03-08 21:07 | XMS_ITS | Encounter Summary ---
Author Organization [facility] Address [address] [place] [address] Care Team Providers Care Retail Service Lead Merchandiser Name Role Phone Uday Sheehan MD Primary Care Provider [phone] Encounter Details Date Type Department Care Team (Late st Contact Info) Description 11/30/2024 Lab Requisition [facility] - Main Lab [address] [place] [address] Tabby Bledsoe MD [address] [address] Bacteremia Social History Tobacco Use Types Packs/Day [...] Associated Diagnosis Comments COMPLETE BLOOD COUNT Routine 12/03/2024 9:07 AM EDT Bacteremia COMPREHENSIVE METABOLIC PANEL Routine 12/03/2024 9:07 AM EDT Bacteremia documented in this encounter Results * (ABNORMAL) Comprehensive metabolic panel (12/03/2024 9:07 AM EDT) Sodium 137 133 - 145 mmol/L LAB CHEMISTRY METHOD 12/03/2024 12:52 PM EDT [facility] Potassium 4.4 3.5 - 5.5 mmol/L LAB CHEMISTRY METHOD 12/03/2024 12:52 PM [facility] Chloride 102 96 - 110 mmol/L LAB CHEMISTRY METHOD 12/03/2024 12:52 PM [facility] CO2 26 21 - 32 mmol/L LAB CHEMISTRY METHOD 12/03/2024 12:52 PM [facility] Anion Gap 9 3 - 11 LAB CHEMISTRY METHOD 12/03/2024 12:52 PM [facility] Glucose 122(H) 70 - 100 mg/dL LAB CHEMISTRY METHOD 12/03/2024 12:52 PM [facility] BUN 52(H) 5 - 25 mg/dL LAB CHEMISTRY METHOD 12/03/2024 12:52 PM [facility] Creatinine 1.28 0.70 - 1.30 mg/dL LAB CHEMISTRY METHOD 12/03/2024 12:52 PM [facility] eGFR 55(L) >=60 mL/min/1. 73m2 LAB CHEMISTRY METHOD 12/03/2024 12:52 PM [facility] Comment:Calculation based on the Chronic Kidney Disease Epidemiology Collaboration (CKD-EPI) equation refit without adjustment for race. BUN/Creatinine Ratio 40.6 LAB CHEMISTRY METHOD 12/03/2024 12:52 PM [facility] Calcium 8.4(L) 8.5 - 10.5 mg/dL LAB CHEMISTRY METHOD 12/03/2024 12:52 PM [facility] AST (SGOT) 41 10 - 42 unit/L LAB CHEMISTRY METHOD 12/03/2024 12:52 PM [facility] ALT (SGPT) 49 10 - 60 unit/L LAB CHEMISTRY METHOD 12/03/2024 12:52 PM [facility] Alkaline Phosphatase 105 42 - 121 unit/L LAB CHEMISTRY METHOD 12/03/2024 12:52 PM [facility] Total Protein 6.1 6.0 - 8.0 g/dL LAB CHEMISTRY METHOD 12/03/2024 12:52 PM EDT [facility] Albumin 1.6(L) 3.2 - 5.0 g/dL LAB CHEMISTRY METHOD 12/03/2024 12:52 PM EDT [facility] Total Bilirubin 0.3 0.0 - 1.4 mg/dL LAB CHEMISTRY METHOD 12/03/2024 12:52 PM T [facility] Blood Venous blood specimen / Unknown Venipuncture / Unknown 12/03/2024 9:07 AM EDT 12/03/2024 10:32 AM EDT us Tabby Bledsoe MD LAB BLOOD ORDERABLES Fin al Result [facility] [address] [place] [address], * (ABNORMAL) Complete blood count (12/03/2024 9:07 AM EDT) [facility] Signature WBC 7.4 4.8 - 10.8 K/mcL LAB HEMETOLOGY METHOD 12/03/2024 11:49 AM [facility] RBC 2.90(L) 4.50 - 5.50 M/mcL LAB HEMETOLOGY METHOD 12/03/2024 11:49 AM [facility] Hemoglobin 7.7(L) 13.5 - 17.5 g/dL LAB HEMETOLOGY METHOD 12/03/2024 11:49 AM [facility] Hematocrit 27.3(L) 42.0 - 54.0 % LAB HEMETOLOGY METHOD 12/03/2024 11:49 AM [facility] MCV 95.5 79.0 - 98.0 FL LAB HEMETOLOGY METHOD 12/03/2024 11:49 AM [facility] MCH 26.9(L) 27.0 - 32.0 pcg LAB HEMETOLOGY METHOD 12/03/2024 11:49 AM EDT [facility] MCHC 28.2(L) 32.0 - 37.0 g/dL LAB HEMETOLOGY METHOD 12/03/2024 11:49 AM EDT [facility] RDW 19.3(H) 11.0 - 15.0 % LAB HEMETOLOGY METHOD 12/03/2024 11:49 AM EDT [facility] Platelets 232 130 - 400 K/mcL LAB HEMETOLOGY METHOD 12/03/2024 11:49 AM EDT [facility] MPV 9.5 7.0 - 11.0 FL LAB HEMETOLOGY METHOD 12/03/2024 11:49 AM EDT [facility] NRBC 0.0 <1.0 % LAB HEMETOLOGY METHOD 12/03/2024 11:49 AM EDT [facility] NRBC Absolute 0.00 <0.10 K/mcL LAB HEMETOLOGY METHOD 12/03/2024 11:49 AM EDT [facility] Blood Venous blood specimen / Unknown Venipuncture / Unknown 12/03/2024 9:07 AM EDT 12/03/2024 10:32 AM EDT us Tabby Bledsoe MD LAB BLOOD ORDERABLES Fin al Result [facility] [address] [place] [address], documented in this encounter Visit Diagnoses Diagnosis Bacteremia documented in this encounter Additional Health Concerns Infection Onset Date Last Indicated Resolved Time ESBL 06/22/2024 06/22/2024 documented as of this encounter Care Teams Retail Service Lead Merchandiser Relationship Specialty Start Date End Date Uday Sheehan MD [address] [place] [address] Dr Thompson [place] PCP - General International Logistics Manager 12/19/16 documented as of this encounter
--- OUTSIDE RECORDS SUMMARY | 2025-03-08 21:07 | XMS_ITS | Encounter Summary ---
Author Organization [facility] Address [address] [place] [address] Care Team Providers Care Chairman Of The Board Name Role Phone Uday Sheehan MD Primary Care Provider [phone] Encounter Details Date Type Department Care Team (Late st Contact Info) Description 10/06/2024 Lab Requisition [facility] - Main Lab [address] [place] [address] Tabby Bledsoe MD [address] [address] Bacteremia Social History Tobacco Use Types Packs/Day [...] LAB CHEMISTRY METHOD 10/07/2024 12:51 PM EDT [facility] Potassium 4.2 3.5 - 5.5 mmol/L LAB CHEMISTRY METHOD 10/07/2024 12:51 PM [facility] Chloride 102 96 - 110 mmol/L LAB CHEMISTRY METHOD 10/07/2024 12:51 PM [facility] CO2 27 21 - 32 mmol/L LAB CHEMISTRY METHOD 10/07/2024 12:51 PM [facility] Anion Gap 7 3 - 11 LAB CHEMISTRY METHOD 10/07/2024 12:51 PM [facility] Glucose 97 70 - 100 mg/dL LAB CHEMISTRY METHOD 10/07/2024 12:51 PM [facility] BUN 31(H) 5 - 25 mg/dL LAB CHEMISTRY METHOD 10/07/2024 12:51 PM [facility] Creatinine 1.03 0.70 - 1.30 mg/dL LAB CHEMISTRY METHOD 10/07/2024 12:51 PM [facility] eGFR 72 >=60 mL/min/1. 73m2 LAB CHEMISTRY METHOD 10/07/2024 12:51 PM [facility] Comment:Calculation based on the Chronic Kidney Disease Epidemiology Collaboration (CKD-EPI) equation refit without adjustment for race. BUN/Creatinine Ratio 30.1 LAB CHEMISTRY METHOD 10/07/2024 12:51 PM [facility] Calcium 8.0(L) 8.5 - 10.5 mg/dL LAB CHEMISTRY METHOD 10/07/2024 12:51 PM [facility] AST (SGOT) 31 10 - 42 unit/L LAB CHEMISTRY METHOD 10/07/2024 12:51 PM [facility] ALT (SGPT) 38 10 - 60 unit/L LAB CHEMISTRY METHOD 10/07/2024 12:51 PM [facility] Alkaline Phosphatase 98 42 - 121 unit/L LAB CHEMISTRY METHOD 10/07/2024 12:51 PM [facility] Total Protein 5.4(L) 6.0 - 8.0 g/dL LAB CHEMISTRY METHOD 10/07/2024 12:51 PM EDT [facility] Albumin 1.4(L) 3.2 - 5.0 g/dL LAB CHEMISTRY METHOD 10/07/2024 12:51 PM EDT [facility] Total Bilirubin 0.3 0.0 - 1.4 mg/dL LAB CHEMISTRY METHOD 10/07/2024 12:51 PM EDT [facility] Blood Venous blood specimen / Unknown Venipuncture / Unknown 10/07/2024 8:53 AM EDT 10/07/2024 10:28 AM EDT us Tabby Bledsoe MD LAB BLOOD ORDERABLES Fin al Result [facility] [address] [place] [address], [place] [phone] * (ABNORMAL) Complete blood count (10/07/2024 8:53 AM EDT) [facility] WBC 7.3 4.8 - 10.8 K/mcL LAB HEMETOLOGY METHOD 10/07/2024 11:23 AM [facility] RBC 2.80(L) 4.50 - 5.50 M/mcL LAB HEMETOLOGY METHOD 10/07/2024 11:23 AM [facility] Hemoglobin 7.9(L) 13.5 - 17.5 g/dL LAB HEMETOLOGY METHOD 10/07/2024 11:23 AM T [facility] Hematocrit 26.0(L) 42.0 - 54.0 % LAB HEMETOLOGY METHOD 10/07/2024 11:23 AM [facility] MCV 93.2 79.0 - 98.0 FL LAB HEMETOLOGY METHOD 10/07/2024 11:23 AM [facility] MCH 28.3 27.0 - 32.0 pcg LAB HEMETOLOGY METHOD 10/07/2024 11:23 AM EDT [facility] MCHC 30.4(L) 32.0 - 37.0 g/dL LAB HEMETOLOGY METHOD 10/07/2024 11:23 AM EDT [facility] RDW 17.0(H) 11.0 - 15.0 % LAB HEMETOLOGY METHOD 10/07/2024 11:23 AM EDT [facility] Platelets 224 130 - 400 K/mcL LAB HEMETOLOGY METHOD 10/07/2024 11:23 AM EDT [facility] MPV 8.7 7.0 - 11.0 FL LAB HEMETOLOGY METHOD 10/07/2024 11:23 AM EDT [facility] NRBC 0.0 <1.0 % LAB HEMETOLOGY METHOD 10/07/2024 11:23 AM EDT [facility] NRBC Absolute 0.00 <0.10 K/mcL LAB HEMETOLOGY METHOD 10/07/2024 11:23 AM EDT [facility] Blood Venous blood specimen / Unknown Venipuncture / Unknown 10/07/2024 8:53 AM EDT 10/07/2024 10:28 AM EDT us Tabby Bledsoe MD LAB BLOOD ORDERABLES Fin al Result [facility] [address] [place] [address], documented in this encounter Visit Diagnoses Diagnosis Bacteremia documented in this encounter Additional Health Concerns Infection Onset Date Last Indicated Resolved Time ESBL 06/22/2024 06/22/2024 documented as of this encounter Care Teams Chairman Of The Board Relationship Specialty Start Date End Date Uday Sheehan MD [address] [place] [address] Dr Donna [place] PCP - General Tax Collection Coordinator 12/19/16 documented as of this encounter
--- OUTSIDE RECORDS SUMMARY | 2025-03-08 21:07 | XMS_ITS | Encounter Summary ---
Author Organization [facility] Address [address] [place] [address] Care Team Providers Care Vehicle Modification Technician Name Role Phone Uday Sheehan MD Primary Care Provider [phone] Encounter Details Date Type Department Care Team (Late st Contact Info) Description 11/09/2024 Lab Requisition [facility] - Main Lab [address] [place] [address] Tabby Bledsoe MD [address] [address] Bacteremia Social History Tobacco Use Types Packs/Day [...] LAB CHEMISTRY METHOD 11/11/2024 2:44 PM EDT [facility] Potassium 4.3 3.5 - 5.5 mmol/L LAB CHEMISTRY METHOD 11/11/2024 2:44 PM [facility] Chloride 108 96 - 110 mmol/L LAB CHEMISTRY METHOD 11/11/2024 2:44 PM [facility] CO2 28 21 - 32 mmol/L LAB CHEMISTRY METHOD 11/11/2024 2:44 PM [facility] Anion Gap 7 3 - 11 LAB CHEMISTRY METHOD 11/11/2024 2:44 PM [facility] Glucose 125(H) 70 - 100 mg/dL LAB CHEMISTRY METHOD 11/11/2024 2:44 PM [facility] BUN 29(H) 5 - 25 mg/dL LAB CHEMISTRY METHOD 11/11/2024 2:44 PM [facility] Creatinine 1.27 0.70 - 1.30 mg/dL LAB CHEMISTRY METHOD 11/11/2024 2:44 PM [facility] eGFR 56(L) >=60 mL/min/1. 73m2 LAB CHEMISTRY METHOD 11/11/2024 2:44 PM [facility] Comment:Calculation based on the Chronic Kidney Disease Epidemiology Collaboration (CKD-EPI) equation refit without adjustment for race. BUN/Creatinine Ratio 22.8 LAB CHEMISTRY METHOD 11/11/2024 2:44 PM [facility] Calcium 8.1(L) 8.5 - 10.5 mg/dL LAB CHEMISTRY METHOD 11/11/2024 2:44 PM [facility] AST (SGOT) 41 10 - 42 unit/L LAB CHEMISTRY METHOD 11/11/2024 2:44 PM [facility] ALT (SGPT) 45 10 - 60 unit/L LAB CHEMISTRY METHOD 11/11/2024 2:44 PM [facility] Alkaline Phosphatase 94 42 - 121 unit/L LAB CHEMISTRY METHOD 11/11/2024 2:44 PM [facility] Total Protein 5.2(L) 6.0 - 8.0 g/dL LAB CHEMISTRY METHOD 11/11/2024 2:44 PM EDT [facility] Albumin 1.2(L) 3.2 - 5.0 g/dL LAB CHEMISTRY METHOD 11/11/2024 2:44 PM EDT [facility] Total Bilirubin 0.3 0.0 - 1.4 mg/dL LAB CHEMISTRY METHOD 11/11/2024 2:44 PM EDT [facility] Blood Venous blood specimen / Unknown Venipuncture / Unknown 11/11/2024 11:28 AM EDT 11/11/2024 12:52 PM EDT us Tabby Bledsoe MD LAB BLOOD ORDERABLES Fin al Result [facility] [address] [place] [address], * (ABNORMAL) Complete blood count (11/11/2024 11:28 AM EDT) WBC 6.2 4.8 - 10.8 K/mcL LAB HEMETOLOGY METHOD 11/11/2024 1:40 PM EDT [facility] RBC 2.50(L) 4.50 - 5.50 M/mcL LAB HEMETOLOGY METHOD 11/11/2024 1:40 PM EDT [facility] Hemoglobin 6.7(L) 13.5 - 17.5 g/dL LAB HEMETOLOGY METHOD 11/11/2024 1:40 PM EDT [facility] Hematocrit 22.8(L) 42.0 - 54.0 % LAB HEMETOLOGY METHOD 11/11/2024 1:40 PM EDT [facility] MCV 91.9 79.0 - 98.0 FL LAB HEMETOLOGY METHOD 11/11/2024 1:40 PM EDT [facility] MCH 27.0 27.0 - 32.0 pcg LAB HEMETOLOGY METHOD 11/11/2024 1:40 PM EDT [facility] MCHC 29.4(L) 32.0 - 37.0 g/dL LAB HEMETOLOGY METHOD 11/11/2024 1:40 PM EDT [facility] RDW 17.9(H) 11.0 - 15.0 % LAB HEMETOLOGY METHOD 11/11/2024 1:40 PM EDT [facility] Platelets 268 130 - 400 K/mcL LAB HEMETOLOGY METHOD 11/11/2024 1:40 PM EDT [facility] MPV 9.3 7.0 - 11.0 FL LAB HEMETOLOGY METHOD 11/11/2024 1:40 PM EDT [facility] NRBC 0.0 <1.0 % LAB HEMETOLOGY METHOD 11/11/2024 1:40 PM EDT [facility] NRBC Absolute 0.00 <0.10 K/mcL LAB HEMETOLOGY METHOD 11/11/2024 1:40 PM EDT [facility] Blood Venous blood specimen / Unknown Venipuncture / Unknown 11/11/2024 11:28 AM EDT 11/11/2024 12:52 PM EDT us Tabby Bledsoe MD LAB BLOOD ORDERABLES Fin al Result [facility] [address] [place] [address], documented in this encounter Visit Diagnoses Diagnosis Bacteremia documented in this encounter Additional Health Concerns Infection Onset Date Last Indicated Resolved Time ESBL 06/22/2024 06/22/2024 documented as of this encounter Care Teams Vehicle Modification Technician Relationship Specialty Start Date End Date Uday Sheehan MD [address] [place] [address] [address] [place] PCP - General Sheeting Puller 12/19/16 documented as of this encounter
--- OUTSIDE RECORDS SUMMARY | 2025-03-08 21:07 | XMS_ITS | Encounter Summary ---
Author Organization [facility] Address [address] [place] [address] Care Team Providers Care Graduate Intern Name Role Phone Uday Sheehan MD Primary Care Provider [phone] Encounter Details Date Type Department Care Team (Late st Contact Info) Description 07/27/[address] [facility] - Main Lab [address] [place] [address] Tabby Bledsoe MD [address] [address] Bacteremia Social History Tobacco Use Types Packs/Day [...] LAB CHEMISTRY METHOD 07/29/2024 2:40 PM EST [facility] Potassium 3.6 3.5 - 5.5 mmol/L LAB CHEMISTRY METHOD 07/29/2024 2:[address] [facility] Chloride 105 96 - 110 mmol/L LAB CHEMISTRY METHOD 07/29/2024 2:[address] [facility] CO2 29 21 - 32 mmol/L LAB CHEMISTRY METHOD 07/29/2024 2:[address] [facility] Anion Gap 7 3 - 11 LAB CHEMISTRY METHOD 07/29/2024 2:[address] [facility] Glucose 98 70 - 100 mg/dL LAB CHEMISTRY METHOD 07/29/2024 2:[address] [facility] BUN 26(H) 5 - 25 mg/dL LAB CHEMISTRY METHOD 07/29/2024 2:[address] [facility] Creatinine 2.26(H) 0.70 - 1.30 mg/dL LAB CHEMISTRY METHOD 07/29/2024 2:[address] [facility] eGFR 28(L) >=60 mL/min/1. 73m2 LAB CHEMISTRY METHOD 07/29/2024 2:[address] [facility] Comment:Calculation based on the Chronic Kidney Disease Epidemiology Collaboration (CKD-EPI) equation refit without adjustment for race. BUN/Creatinine Ratio 11.5 LAB CHEMISTRY METHOD 07/29/2024 2:[address] [facility] Calcium 8.5 8.5 - 10.5 mg/dL LAB CHEMISTRY METHOD 07/29/2024 2:[address] [facility] AST (SGOT) 15 10 - 42 unit/L LAB CHEMISTRY METHOD 07/29/2024 2:[address] [facility] ALT (SGPT) 8(L) 10 - 60 unit/L LAB CHEMISTRY METHOD 07/29/2024 2:[address] [facility] Alkaline Phosphatase 93 42 - 121 unit/L LAB CHEMISTRY METHOD 07/29/2024 2:[address] [facility] Total Protein 5.5(L) 6.0 - 8.0 g/dL LAB CHEMISTRY METHOD 07/29/2024 2:40 PM EST [facility] Albumin 1.5(L) 3.2 - 5.0 g/dL LAB CHEMISTRY METHOD 07/29/2024 2:[address] [facility] Total Bilirubin 0.2 0.0 - 1.4 mg/dL LAB CHEMISTRY METHOD 07/29/2024 2:[address] [facility] Blood Venous blood specimen / Unknown Venipuncture / Unknown 07/29/2024 10:02 AM EST 07/29/2024 12:19 PM EST us Tabby Bledsoe MD LAB BLOOD ORDERABLES Fin al Result [facility] [address] [place] [address], [place] [phone] * (ABNORMAL) Complete blood count (07/29/2024 10:02 AM EST) WBC 6.7 4.8 - 10.8 K/mcL LAB HEMETOLOGY METHOD 07/29/2024 2:[address] [facility] RBC 2.80(L) 4.50 - 5.50 M/mcL LAB HEMETOLOGY METHOD 07/29/2024 2:[address] [facility] Hemoglobin 7.3(L) 13.5 - 17.5 g/dL LAB HEMETOLOGY METHOD 07/29/2024 2:[address] [facility] Hematocrit 25.3(L) 42.0 - 54.0 % LAB HEMETOLOGY METHOD 07/29/2024 2:[address] [facility] MCV 90.0 79.0 - 98.0 FL LAB HEMETOLOGY METHOD 07/29/2024 2:[address] [facility] MCH 26.0(L) 27.0 - 32.0 pcg LAB HEMETOLOGY METHOD 07/29/2024 2:[address] [facility] MCHC 28.9(L) 32.0 - 37.0 g/dL LAB HEMETOLOGY METHOD 07/29/2024 2:00 PM EST [facility] RDW 19.8(H) 11.0 - 15.0 % LAB HEMETOLOGY METHOD 07/29/2024 2:[address] [facility] Platelets 240 130 - 400 K/mcL LAB HEMETOLOGY METHOD 07/29/2024 2:[address] [facility] MPV 9.5 7.0 - 11.0 FL LAB HEMETOLOGY METHOD 07/29/2024 2:[address] [facility] NRBC 0.0 <1.0 % LAB HEMETOLOGY METHOD 07/29/2024 2:[address] [facility] NRBC Absolute 0.00 <0.10 K/mcL LAB HEMETOLOGY METHOD 07/29/2024 2:[address] [facility] Blood Venous blood specimen / Unknown Venipuncture / Unknown 07/29/2024 10:02 AM EST 07/29/2024 12:19 PM EST Tabby Bledsoe MD LAB BLOOD ORDERABLES Fin al Result [facility] [address] [place] [address], documented in this encounter Visit Diagnoses Diagnosis Bacteremia documented in this encounter Additional Health Concerns Infection Onset Date Last Indicated Resolved Time ESBL 06/22/2024 06/22/2024 documented as of this encounter Care Teams Graduate Intern Relationship Specialty Start Date End Date Uday Sheehan MD [address] [place] [address] Dr Donna [place] PCP - General Hand Bunch Maker 12/19/16 documented as of this encounter
--- OUTSIDE RECORDS SUMMARY | 2025-03-08 21:07 | XMS_ITS | Encounter Summary ---
Author Organization [facility] Address [address] [place] [address] Care Team Providers Care Polisher Apprentice Name Role Phone Uday Sheehan MD Primary Care Provider [phone] Encounter Details Date Type Department Care Team (Late st Contact Info) Description 12/09/2024 Lab Requisition [facility] - Main Lab [address] [place] [address] Tabby Bledsoe MD [address] [address] Bacteremia Social History Tobacco Use Types Packs/Day [...] Associated Diagnosis Comments COMPLETE BLOOD COUNT Routine 12/09/2024 7:54 AM EDT Bacteremia COMPREHENSIVE METABOLIC PANEL Routine 12/09/2024 7:54 AM EDT Bacteremia documented in this encounter Results * (ABNORMAL) Comprehensive metabolic panel (12/09/2024 7:54 AM EDT) Sodium 141 133 - 145 mmol/L LAB CHEMISTRY METHOD 12/09/2024 12:37 PM EDT [facility] Potassium 4.3 3.5 - 5.5 mmol/L LAB CHEMISTRY METHOD 12/09/2024 12:37 PM [facility] Chloride 105 96 - 110 mmol/L LAB CHEMISTRY METHOD 12/09/2024 12:37 PM [facility] CO2 30 21 - 32 mmol/L LAB CHEMISTRY METHOD 12/09/2024 12:37 PM [facility] Anion Gap 6 3 - 11 LAB CHEMISTRY METHOD 12/09/2024 12:37 PM [facility] Glucose 89 70 - 100 mg/dL LAB CHEMISTRY METHOD 12/09/2024 12:37 PM [facility] BUN 53(H) 5 - 25 mg/dL LAB CHEMISTRY METHOD 12/09/2024 12:37 PM [facility] Creatinine 1.38(H) 0.70 - 1.30 mg/dL LAB CHEMISTRY METHOD 12/09/2024 12:37 PM [facility] eGFR 50(L) >=60 mL/min/1. 73m2 LAB CHEMISTRY METHOD 12/09/2024 12:37 PM [facility] Comment:Calculation based on the Chronic Kidney Disease Epidemiology Collaboration (CKD-EPI) equation refit without adjustment for race. BUN/Creatinine Ratio 38.4 LAB CHEMISTRY METHOD 12/09/2024 12:37 PM [facility] Calcium 7.7(L) 8.5 - 10.5 mg/dL LAB CHEMISTRY METHOD 12/09/2024 12:37 PM [facility] AST (SGOT) 41 10 - 42 unit/L LAB CHEMISTRY METHOD 12/09/2024 12:37 PM [facility] ALT (SGPT) 36 10 - 60 unit/L LAB CHEMISTRY METHOD 12/09/2024 12:37 PM [facility] Alkaline Phosphatase 105 42 - 121 unit/L LAB CHEMISTRY METHOD 12/09/2024 12:37 PM [facility] Total Protein 5.9(L) 6.0 - 8.0 g/dL LAB CHEMISTRY METHOD 12/09/2024 12:37 PM EDT [facility] Albumin 1.5(L) 3.2 - 5.0 g/dL LAB CHEMISTRY METHOD 12/09/2024 12:37 PM EDT [facility] Total Bilirubin 0.3 0.0 - 1.4 mg/dL LAB CHEMISTRY METHOD 12/09/2024 12:37 PM EDT [facility] Blood Venous blood specimen / Unknown 12/09/2024 7:54 AM EDT 12/09/2024 10:48 AM EDT us Tabby Bledsoe MD LAB BLOOD ORDERABLES Fin al Result [facility] [address] [place] [address], * (ABNORMAL) Complete blood count (12/09/2024 7:54 AM EDT) WBC 5.6 4.8 - 10.8 K/mcL LAB HEMETOLOGY METHOD 12/09/2024 11:11 AM T [facility] RBC 2.60(L) 4.50 - 5.50 M/mcL LAB HEMETOLOGY METHOD 12/09/2024 11:11 AM [facility] Hemoglobin 7.1(L) 13.5 - 17.5 g/dL LAB HEMETOLOGY METHOD 12/09/2024 11:11 AM T [facility] Hematocrit 24.7(L) 42.0 - 54.0 % LAB HEMETOLOGY METHOD 12/09/2024 11:11 AM [facility] MCV 95.4 79.0 - 98.0 FL LAB HEMETOLOGY METHOD 12/09/2024 11:11 AM [facility] MCH 27.4 27.0 - 32.0 pcg LAB HEMETOLOGY METHOD 12/09/2024 11:11 AM EDT [facility] MCHC 28.7(L) 32.0 - 37.0 g/dL LAB HEMETOLOGY METHOD 12/09/2024 11:11 AM EDT [facility] RDW 19.5(H) 11.0 - 15.0 % LAB HEMETOLOGY METHOD 12/09/2024 11:11 AM EDT [facility] Platelets 217 130 - 400 K/mcL LAB HEMETOLOGY METHOD 12/09/2024 11:11 AM EDT [facility] MPV 9.5 7.0 - 11.0 FL LAB HEMETOLOGY METHOD 12/09/2024 11:11 AM EDT [facility] NRBC 0.0 <1.0 % LAB HEMETOLOGY METHOD 12/09/2024 11:11 AM EDT [facility] NRBC Absolute 0.00 <0.10 K/mcL LAB HEMETOLOGY METHOD 12/09/2024 11:11 AM EDT [facility] Blood Venous blood specimen / Unknown Venipuncture / Unknown 12/09/2024 7:54 AM EDT 12/09/2024 10:48 AM EDT us Tabby Bledsoe MD LAB BLOOD ORDERABLES Fin al Result [facility] [address] [place] [address], documented in this encounter Visit Diagnoses Diagnosis Bacteremia documented in this encounter Additional Health Concerns Infection Onset Date Last Indicated Resolved Time ESBL 06/22/2024 06/22/2024 documented as of this encounter Care Teams Polisher Apprentice Relationship Specialty Start Date End Date Uday Sheehan MD [address] [place] [address] Dr Donna MA PCP - General Karate Instructor 12/19/16 documented as of this encounter
--- OUTSIDE RECORDS SUMMARY | 2025-03-08 21:07 | XMS_ITS | Encounter Summary ---
Author Organization [facility] Address [address] [place] [address] Care Team Providers Care Sccm Administrator Name Role Phone Uday Sheehan MD Primary Care Provider [phone] Encounter Details Date Type Department Care Team (Late st Contact Info) Description 10/12/2024 Lab Requisition [facility] - Main Lab [address] [place] [address] Tabby Bledsoe MD [address] [address] Bacteremia Social History Tobacco Use Types Packs/Day [...] LAB CHEMISTRY METHOD 10/14/2024 1:24 PM EDT [facility] Potassium 4.1 3.5 - 5.5 mmol/L LAB CHEMISTRY METHOD 10/14/2024 1:24 PM [facility] Chloride 105 96 - 110 mmol/L LAB CHEMISTRY METHOD 10/14/2024 1:24 PM [facility] CO2 28 21 - 32 mmol/L LAB CHEMISTRY METHOD 10/14/2024 1:24 PM [facility] Anion Gap 7 3 - 11 LAB CHEMISTRY METHOD 10/14/2024 1:24 PM [facility] Glucose 94 70 - 100 mg/dL LAB CHEMISTRY METHOD 10/14/2024 1:24 PM [facility] BUN 40(H) 5 - 25 mg/dL LAB CHEMISTRY METHOD 10/14/2024 1:24 PM [facility] Creatinine 1.19 0.70 - 1.30 mg/dL LAB CHEMISTRY METHOD 10/14/2024 1:24 PM [facility] eGFR 60 >=60 mL/min/1. 73m2 LAB CHEMISTRY METHOD 10/14/2024 1:24 PM [facility] Comment:Calculation based on the Chronic Kidney Disease Epidemiology Collaboration (CKD-EPI) equation refit without adjustment for race. BUN/Creatinine Ratio 33.6 LAB CHEMISTRY METHOD 10/14/2024 1:24 PM [facility] Calcium 8.2(L) 8.5 - 10.5 mg/dL LAB CHEMISTRY METHOD 10/14/2024 1:24 PM [facility] AST (SGOT) 150(H) 10 - 42 unit/L LAB CHEMISTRY METHOD 10/14/2024 1:24 PM [facility] Comment:Results verified by repeat testing ALT (SGPT) 122(H) 10 - 60 unit/L LAB CHEMISTRY METHOD 10/14/2024 1:24 PM [facility] Comment:Results verified by repeat testing Alkaline Phosphatase 113 42 - 121 unit/L LAB CHEMISTRY METHOD 10/14/2024 1:24 PM [facility] Total Protein 5.7(L) 6.0 - 8.0 g/dL LAB CHEMISTRY METHOD 10/14/2024 1:24 PM EDT [facility] Albumin 1.5(L) 3.2 - 5.0 g/dL LAB CHEMISTRY METHOD 10/14/2024 1:24 PM EDT [facility] Total Bilirubin 0.3 0.0 - 1.4 mg/dL LAB CHEMISTRY METHOD 10/14/2024 1:24 PM EDT [facility] Blood Venous blood specimen / Unknown Venipuncture / Unknown 10/14/2024 7:07 AM EDT 10/14/2024 10:10 AM EDT us Tabby Bledsoe MD LAB BLOOD ORDERABLES Fin al Result [facility] [address] [place] [address], * (ABNORMAL) Complete blood count (10/14/2024 7:07 AM EDT) WBC 5.9 4.8 - 10.8 K/mcL LAB HEMETOLOGY METHOD 10/14/2024 11:11 AM [facility] RBC 2.60(L) 4.50 - 5.50 M/mcL LAB HEMETOLOGY METHOD 10/14/2024 11:11 AM [facility] Hemoglobin 7.2(L) 13.5 - 17.5 g/dL LAB HEMETOLOGY METHOD 10/14/2024 11:11 AM [facility] Hematocrit 24.8(L) 42.0 - 54.0 % LAB HEMETOLOGY METHOD 10/14/2024 11:11 AM [facility] MCV 95.0 79.0 - 98.0 FL LAB HEMETOLOGY METHOD 10/14/2024 11:11 AM [facility] MCH 27.6 27.0 - 32.0 pcg LAB HEMETOLOGY METHOD 10/14/2024 11:11 AM EDT [facility] MCHC 29.0(L) 32.0 - 37.0 g/dL LAB HEMETOLOGY METHOD 10/14/2024 11:11 AM EDT [facility] RDW 16.8(H) 11.0 - 15.0 % LAB HEMETOLOGY METHOD 10/14/2024 11:11 AM EDT [facility] Platelets 218 130 - 400 K/mcL LAB HEMETOLOGY METHOD 10/14/2024 11:11 AM EDT [facility] MPV 9.7 7.0 - 11.0 FL LAB HEMETOLOGY METHOD 10/14/2024 11:11 AM EDT [facility] NRBC 0.0 <1.0 % LAB HEMETOLOGY METHOD 10/14/2024 11:11 AM EDT [facility] NRBC Absolute 0.00 <0.10 K/mcL LAB HEMETOLOGY METHOD 10/14/2024 11:11 AM EDT [facility] Blood Venous blood specimen / Unknown Venipuncture / Unknown 10/14/2024 7:07 AM EDT 10/14/2024 10:10 AM EDT Tabby Bledsoe MD LAB BLOOD ORDERABLES Fin al Result [facility] [address] [place] [address], documented in this encounter Visit Diagnoses Diagnosis Bacteremia documented in this encounter Additional Health Concerns Infection Onset Date Last Indicated Resolved Time ESBL 06/22/2024 06/22/2024 documented as of this encounter Care Teams Sccm Administrator Relationship Specialty Start Date End Date Uday Sheehan MD [address] [place] [address] Dr Donna [place] PCP - General Community Service Representative 6/12/17 documented as of this encounter
--- OUTSIDE RECORDS SUMMARY | 2025-03-08 21:07 | XMS_ITS | Encounter Summary ---
Author Organization [facility] Address [address] [place] [address] Care Team Providers Care President Name Role Phone dUay Sheehan MD Primary Care Provider [phone] Encounter Details Date Type Department Care Team (Late st Contact Info) Description 12/20/2024 Lab Requisition [facility] - Main Lab [address] [place] [address] Tabby Bledsoe MD [address] [address] Bacteremia Social History Tobacco Use Types Packs/Day [...] Associated Diagnosis Comments COMPLETE BLOOD COUNT Routine 12/23/2024 8:42 AM EDT Bacteremia COMPREHENSIVE METABOLIC PANEL Routine 12/23/2024 8:42 AM EDT Bacteremia documented in this encounter Results * (ABNORMAL) Comprehensive metabolic panel (12/23/2024 8:42 AM EDT) Sodium 141 133 - 145 mmol/L LAB CHEMISTRY METHOD 12/23/2024 2:27 PM EDT [facility] Potassium 4.4 3.5 - 5.5 mmol/L LAB CHEMISTRY METHOD 12/23/2024 2:27 PM [facility] Chloride 106 96 - 110 mmol/L LAB CHEMISTRY METHOD 12/23/2024 2:27 PM [facility] CO2 29 21 - 32 mmol/L LAB CHEMISTRY METHOD 12/23/2024 2:27 PM [facility] Anion Gap 6 3 - 11 LAB CHEMISTRY METHOD 12/23/2024 2:27 PM [facility] Glucose 134(H) 70 - 100 mg/dL LAB CHEMISTRY METHOD 12/23/2024 2:27 PM [facility] BUN 66(H) 5 - 25 mg/dL LAB CHEMISTRY METHOD 12/23/2024 2:27 PM [facility] Creatinine 1.35(H) 0.70 - 1.30 mg/dL LAB CHEMISTRY METHOD 12/23/2024 2:27 PM [facility] eGFR 52(L) >=60 mL/min/1. 73m2 LAB CHEMISTRY METHOD 12/23/2024 2:27 PM [facility] Comment:Calculation based on the Chronic Kidney Disease Epidemiology Collaboration (CKD-EPI) equation refit without adjustment for race. BUN/Creatinine Ratio 48.9 LAB CHEMISTRY METHOD 12/23/2024 2:27 PM [facility] Calcium 8.5 8.5 - 10.5 mg/dL LAB CHEMISTRY METHOD 12/23/2024 2:27 PM [facility] AST (SGOT) 216(H) 10 - 42 unit/L LAB CHEMISTRY METHOD 12/23/2024 2:27 PM [facility] Comment:Results verified by repeat testing ALT (SGPT) 199(H) 10 - 60 unit/L LAB CHEMISTRY METHOD 12/23/2024 2:27 PM [facility] Comment:Results verified by repeat testing Alkaline Phosphatase 159(H) 42 - 121 unit/L LAB CHEMISTRY METHOD 12/23/2024 2:27 PM [facility] Total Protein 6.0 6.0 - 8.0 g/dL LAB CHEMISTRY METHOD 12/23/2024 2:27 PM EDT [facility] Albumin 1.4(L) 3.2 - 5.0 g/dL LAB CHEMISTRY METHOD 12/23/2024 2:27 PM EDT [facility] Total Bilirubin 0.2 0.0 - 1.4 mg/dL LAB CHEMISTRY METHOD 12/23/2024 2:27 PM EDT [facility] Blood Venous blood specimen / Unknown Venipuncture / Unknown 12/23/2024 8:42 AM EDT 12/23/2024 10:37 AM EDT us Tbaby Bledsoe MD LAB BLOOD ORDERABLES Fin al Result [facility] [address] [place] [address], * (ABNORMAL) Complete blood count (12/23/2024 8:42 AM EDT) WBC 6.3 4.8 - 10.8 K/mcL LAB HEMETOLOGY METHOD 12/23/2024 11:12 AM [facility] RBC 2.70(L) 4.50 - 5.50 M/mcL LAB HEMETOLOGY METHOD 12/23/2024 11:12 AM [facility] Hemoglobin 7.1(L) 13.5 - 17.5 g/dL LAB HEMETOLOGY METHOD 12/23/2024 11:12 AM [facility] Hematocrit 25.5(L) 42.0 - 54.0 % LAB HEMETOLOGY METHOD 12/23/2024 11:12 AM [facility] MCV 95.1 79.0 - 98.0 FL LAB HEMETOLOGY METHOD 12/23/2024 11:12 AM T [facility] MCH 26.5(L) 27.0 - 32.0 pcg LAB HEMETOLOGY METHOD 12/23/2024 11:12 AM EDT [facility] MCHC 27.8(L) 32.0 - 37.0 g/dL LAB HEMETOLOGY METHOD 12/23/2024 11:12 AM EDT [facility] RDW 18.8(H) 11.0 - 15.0 % LAB HEMETOLOGY METHOD 12/23/2024 11:12 AM EDT [facility] Platelets 250 130 - 400 K/mcL LAB HEMETOLOGY METHOD 12/23/2024 11:12 AM EDT [facility] MPV 9.6 7.0 - 11.0 FL LAB HEMETOLOGY METHOD 12/23/2024 11:12 AM EDT [facility] NRBC 0.0 <1.0 % LAB HEMETOLOGY METHOD 12/23/2024 11:12 AM EDT [facility] NRBC Absolute 0.00 <0.10 K/mcL LAB HEMETOLOGY METHOD 12/23/2024 11:12 AM T [facility] Blood Venous blood specimen / Unknown Venipuncture / Unknown 12/23/2024 8:42 AM EDT 12/23/2024 10:37 AM EDT us Tabby Bledsoe MD LAB BLOOD ORDERABLES Fin al Result [facility] [address] [place] [address], documented in this encounter Visit Diagnoses Diagnosis Bacteremia documented in this encounter Additional Health Concerns Infection Onset Date Last Indicated Resolved Time ESBL 06/22/2024 06/22/2024 documented as of this encounter Care Teams President Relationship Specialty Start Date End Date Uday Sheehan MD [address] [place] [address] Dr Donna [place] PCP - General Blocker Heated Metal Forms 12/19/16 documented as of this encounter
--- OUTSIDE RECORDS SUMMARY | 2025-03-08 21:07 | XMS_ITS | Encounter Summary ---
Author Organization [facility] Address [address] [place] [address] Care Team Providers Care Scrap Kettle Tender Name Role Phone Uday Sheehan MD Primary Care Provider [phone] Encounter Details Date Type Department Care Team (Late st Contact Info) Description 10/19/2024 Lab Requisition [facility] - Main Lab [address] [facility] [place] [address] Tabby Bledsoe MD [address] [address] Bacteremia Social History Tobacco Use Types Packs/Day [...] as of this encounter Care Teams Scrap Kettle Tender Relationship Specialty Start Date End Date Uday Sheehan MD [address] [place] [address] PCP - General Wheel Inspector 12/19/16 documented as of this encounter
--- OUTSIDE RECORDS SUMMARY | 2025-03-08 21:07 | XMS_ITS | Encounter Summary ---
Author Organization [facility] Address [address] [place] [address] Care Team Providers Care Big Data Developer Name Role Phone Uday Sheehan MD Primary Care Provider [phone] Encounter Details Date Type Department Care Team (Late st Contact Info) Description 07/19/2024 Lab Requisition [facility] - Main Lab [address] [place] [address] Tabby Bledsoe MD [address] [address] Bacteremia Social History Tobacco Use Types Packs/Day [...] LAB CHEMISTRY METHOD 07/22/2024 10:29 AM EST [facility] Potassium 4.3 3.5 - 5.5 mmol/L LAB CHEMISTRY METHOD 07/22/2024 10:29 AM [facility] Chloride 107 96 - 110 mmol/L LAB CHEMISTRY METHOD 07/22/2024 10:29 AM [facility] CO2 31 21 - 32 mmol/L LAB CHEMISTRY METHOD 07/22/2024 10:29 AM [facility] Anion Gap 5 3 - 11 LAB CHEMISTRY METHOD 07/22/2024 10:29 AM [facility] Glucose 87 70 - 100 mg/dL LAB CHEMISTRY METHOD 07/22/2024 10:29 AM [facility] BUN 24 5 - 25 mg/dL LAB CHEMISTRY METHOD 07/22/2024 10:29 AM [facility] Creatinine 2.18(H) 0.70 - 1.30 mg/dL LAB CHEMISTRY METHOD 07/22/2024 10:29 AM [facility] eGFR 29(L) >=60 mL/min/1. 73m2 LAB CHEMISTRY METHOD 07/22/2024 10:29 AM [facility] Comment:Calculation based on the Chronic Kidney Disease Epidemiology Collaboration (CKD-EPI) equation refit without adjustment for race. BUN/Creatinine Ratio 11.0 LAB CHEMISTRY METHOD 07/22/2024 10:29 AM [facility] Calcium 9.5 8.5 - 10.5 mg/dL LAB CHEMISTRY METHOD 07/22/2024 10:29 AM [facility] AST (SGOT) 14 10 - 42 unit/L LAB CHEMISTRY METHOD 07/22/2024 10:29 AM [facility] ALT (SGPT) 12 10 - 60 unit/L LAB CHEMISTRY METHOD 07/22/2024 10:29 AM [facility] Alkaline Phosphatase 92 42 - 121 unit/L LAB CHEMISTRY METHOD 07/22/2024 10:29 AM [facility] Total Protein 5.6(L) 6.0 - 8.0 g/dL LAB CHEMISTRY METHOD 07/22/2024 10:29 AM [facility] Albumin 1.6(L) 3.2 - 5.0 g/dL LAB CHEMISTRY METHOD 07/22/2024 10:29 AM [facility] Total Bilirubin 0.3 0.0 - 1.4 mg/dL LAB CHEMISTRY METHOD 07/22/2024 10:29 AM [facility] Blood Venous blood specimen / Unknown Venipuncture / Unknown 07/22/2024 7:38 AM EST 07/22/2024 9:41 AM EST us Tabby Bledsoe MD LAB BLOOD ORDERABLES Fin al Result [facility] [address] [place] [address], * (ABNORMAL) Complete blood count (07/22/2024 7:38 AM EST) WBC 5.4 4.8 - 10.8 K/mcL LAB HEMETOLOGY METHOD 07/22/2024 10:01 AM [facility] RBC 2.90(L) 4.50 - 5.50 M/mcL LAB HEMETOLOGY METHOD 07/22/2024 10:01 AM [facility] Hemoglobin 7.5(L) 13.5 - 17.5 g/dL LAB HEMETOLOGY METHOD 07/22/2024 10:01 AM [facility] Hematocrit 25.6(L) 42.0 - 54.0 % LAB HEMETOLOGY METHOD 07/22/2024 10:01 AM [facility] MCV 88.3 79.0 - 98.0 FL LAB HEMETOLOGY METHOD 07/22/2024 10:01 AM [facility] MCH 25.9(L) 27.0 - 32.0 pcg LAB HEMETOLOGY METHOD 07/22/2024 10:01 AM [facility] MCHC 29.3(L) 32.0 - 37.0 g/dL LAB HEMETOLOGY METHOD 07/22/2024 10:01 AM [facility] RDW 19.0(H) 11.0 - 15.0 % LAB HEMETOLOGY METHOD 07/22/2024 10:01 AM [facility] Platelets 259 130 - 400 K/mcL LAB HEMETOLOGY METHOD 07/22/2024 10:01 AM [facility] MPV 9.3 7.0 - 11.0 FL LAB HEMETOLOGY METHOD 07/22/2024 10:01 AM [facility] NRBC 0.0 <1.0 % LAB HEMETOLOGY METHOD 07/22/2024 10:01 AM [facility] NRBC Absolute 0.00 <0.10 K/mcL LAB HEMETOLOGY METHOD 07/22/2024 10:01 AM [facility] Blood Venous blood specimen / Unknown Venipuncture / Unknown 07/22/2024 7:38 AM EST 07/22/2024 9:41 AM EST us Tabby Bledsoe MD LAB BLOOD ORDERABLES Fin al Result [facility] [address] [place] [address], documented in this encounter Visit Diagnoses Diagnosis Bacteremia documented in this encounter Additional Health Concerns Infection Onset Date Last Indicated Resolved Time ESBL 06/22/2024 06/22/2024 documented as of this encounter Care Teams Big Data Developer Relationship Specialty Start Date End Date Uday Sheehan MD [address] [facility] [address] Donna [place] PCP - General Automatic Packer Operator 12/19/16 documented as of this encounter
--- OUTSIDE RECORDS SUMMARY | 2025-03-08 21:07 | XMS_ITS | Encounter Summary ---
Author Organization [facility] Address [address] [place] [address] Care Team Providers Care Senior Drafter Name Role Phone Uday Sheehan MD Primary Care Provider [phone] Encounter Details Date Type Department Care Team (Late st Contact Info) Description 12/27/2024 Lab Requisition [facility] - Main Lab [address] [place] [address] Tabby Bledsoe MD [address] [address] Bacteremia Social History Tobacco Use Types Packs/Day [...] Associated Diagnosis Comments COMPLETE BLOOD COUNT Routine 12/30/2024 8:58 AM EDT Bacteremia COMPREHENSIVE METABOLIC PANEL Routine 12/30/2024 8:58 AM EDT Bacteremia documented in this encounter Results * (ABNORMAL) Comprehensive metabolic panel (12/30/2024 8:58 AM EDT) Sodium 145 133 - 145 mmol/L LAB CHEMISTRY METHOD 12/30/2024 12:56 PM EDT [facility] Potassium 4.4 3.5 - 5.5 mmol/L LAB CHEMISTRY METHOD 12/30/2024 12:56 PM [facility] Chloride 108 96 - 110 mmol/L LAB CHEMISTRY METHOD 12/30/2024 12:56 PM [facility] CO2 29 21 - 32 mmol/L LAB CHEMISTRY METHOD 12/30/2024 12:56 PM [facility] Anion Gap 8 3 - 11 LAB CHEMISTRY METHOD 12/30/2024 12:56 PM [facility] Glucose 155(H) 70 - 100 mg/dL LAB CHEMISTRY METHOD 12/30/2024 12:56 PM [facility] BUN 59(H) 5 - 25 mg/dL LAB CHEMISTRY METHOD 12/30/2024 12:56 PM [facility] Creatinine 1.60(H) 0.70 - 1.30 mg/dL LAB CHEMISTRY METHOD 12/30/2024 12:56 PM [facility] eGFR 42(L) >=60 mL/min/1. 73m2 LAB CHEMISTRY METHOD 12/30/2024 12:56 PM [facility] Comment:Calculation based on the Chronic Kidney Disease Epidemiology Collaboration (CKD-EPI) equation refit without adjustment for race. BUN/Creatinine Ratio 36.9 LAB CHEMISTRY METHOD 12/30/2024 12:56 PM [facility] Calcium 8.2(L) 8.5 - 10.5 mg/dL LAB CHEMISTRY METHOD 12/30/2024 12:56 PM [facility] AST (SGOT) 53(H) 10 - 42 unit/L LAB CHEMISTRY METHOD 12/30/2024 12:56 PM [facility] ALT (SGPT) 76(H) 10 - 60 unit/L LAB CHEMISTRY METHOD 12/30/2024 12:56 PM [facility] Alkaline Phosphatase 189(H) 42 - 121 unit/L LAB CHEMISTRY METHOD 12/30/2024 12:56 PM [facility] Total Protein 6.5 6.0 - 8.0 g/dL LAB CHEMISTRY METHOD 12/30/2024 12:56 PM EDT [facility] Albumin 1.5(L) 3.2 - 5.0 g/dL LAB CHEMISTRY METHOD 12/30/2024 12:56 PM EDT [facility] Total Bilirubin 0.4 0.0 - 1.4 mg/dL LAB CHEMISTRY METHOD 12/30/2024 12:56 PM EDT [facility] Blood Venous blood specimen / Unknown Venipuncture / Unknown 12/30/2024 8:58 AM EDT 12/30/2024 11:26 AM EDT us Tabby Bledsoe MD LAB BLOOD ORDERABLES Fin al Result [facility] [address] [place] [address], * (ABNORMAL) Complete blood count (12/30/2024 8:58 AM EDT) WBC 8.0 4.8 - 10.8 K/mcL LAB HEMETOLOGY METHOD 12/30/2024 12:03 PM [facility] RBC 2.70(L) 4.50 - 5.50 M/mcL LAB HEMETOLOGY METHOD 12/30/2024 12:03 PM [facility] Hemoglobin 7.1(L) 13.5 - 17.5 g/dL LAB HEMETOLOGY METHOD 12/30/2024 12:03 PM [facility] Hematocrit 25.6(L) 42.0 - 54.0 % LAB HEMETOLOGY METHOD 12/30/2024 12:03 PM [facility] MCV 94.5 79.0 - 98.0 FL LAB HEMETOLOGY METHOD 12/30/2024 12:03 PM [facility] MCH 26.2(L) 27.0 - 32.0 pcg LAB HEMETOLOGY METHOD 12/30/2024 12:03 PM EDT [facility] MCHC 27.7(L) 32.0 - 37.0 g/dL LAB HEMETOLOGY METHOD 12/30/2024 12:03 PM EDT [facility] RDW 18.9(H) 11.0 - 15.0 % LAB HEMETOLOGY METHOD 12/30/2024 12:03 PM EDT [facility] Platelets 254 130 - 400 K/mcL LAB HEMETOLOGY METHOD 12/30/2024 12:03 PM EDT [facility] MPV 9.9 7.0 - 11.0 FL LAB HEMETOLOGY METHOD 12/30/2024 12:03 PM EDT [facility] NRBC 0.0 <1.0 % LAB HEMETOLOGY METHOD 12/30/2024 12:03 PM EDT [facility] NRBC Absolute 0.00 <0.10 K/mcL LAB HEMETOLOGY METHOD 12/30/2024 12:03 PM EDT [facility] Blood Venous blood specimen / Unknown Venipuncture / Unknown 12/30/2024 8:58 AM EDT 12/30/2024 11:26 AM EDT Tabby Bledsoe MD LAB BLOOD ORDERABLES Fin al Result [facility] [address] [place] [address], documented in this encounter Visit Diagnoses Diagnosis Bacteremia documented in this encounter Additional Health Concerns Infection Onset Date Last Indicated Resolved Time ESBL 06/22/2024 06/22/2024 documented as of this encounter Care Teams Senior Drafter Relationship Specialty Start Date End Date Uday Sheehan MD [address] [place] [address] Dr Donna [place] PCP - General Real Estate Valuer 12/19/16 documented as of this encounter
--- OUTSIDE RECORDS SUMMARY | 2025-03-08 21:07 | XMS_ITS | Encounter Summary ---
Author Organization [facility] Address [address] [place] [address] Care Team Providers Care Climate Change Risk Assessor Name Role Phone Uday Sheehan MD Primary Care Provider [phone] Encounter Details Date Type Department Care Team (Late st Contact Info) Description 08/21/[address] [facility] - Main Lab [address] [place] [address] Tabby Bledsoe MD [address] [address] Anemia, unspecified Social History Tobacco Use Types [...] LAB CHEMISTRY METHOD 08/21/2024 11:26 AM EST [facility] Potassium 3.8 3.5 - 5.5 [...] refit without adjustment for race. BUN/Creatinine Ratio 15.9 LAB CHEMISTRY METHOD 08/21/2024 11:26 AM [facility] Calcium 8.5 8.5 - 10.5 mg/dL LAB CHEMISTRY METHOD 08/21/2024 11:26 AM [facility] Blood Venous blood specimen / Unknown Venipuncture / Unknown 08/21/2024 7:55 AM EST 08/21/2024 10:41 AM EST us Tabby Bledsoe MD LAB BLOOD ORDERABLES Fin al Result [facility] [address] [place] [address], * (ABNORMAL) Complete blood count (08/21/2024 7:55 AM EST) [facility] WBC 6.5 4.8 - 10.8 K/mcL [...] LAB HEMETOLOGY METHOD 08/21/2024 11:00 AM EST [facility] Blood Venous blood specimen / Unknown Venipuncture / Unknown 08/21/2024 7:55 AM EST 08/21/2024 10:41 AM EST us Tabby Bledsoe MD LAB BLOOD ORDERABLES Fin al Result [facility] [address] [place] [address], documented in this encounter Visit Diagnoses Diagnosis Anemia, unspecified documented in this encounter Additional Health Concerns Infection Onset Date Last Indicated Resolved Time ESBL 06/22/2024 06/22/2024 documented as of this encounter Care Teams Climate Change Risk Assessor Relationship Specialty Start Date End Date Uday Sheehan MD [address] [place] [address] Dr Thompson [place] PCP - General Campaign Management Senior Manager 12/19/16 documented as of this encounter
--- OUTSIDE RECORDS SUMMARY | 2025-03-08 21:07 | XMS_ITS | Encounter Summary ---
Author Organization [facility] Address [address] [place] [address] Care Team Providers Care Asset Protection Lead Name Role Phone Uday Sheehan MD Primary Care Provider [phone] Encounter Details Date Type Department Care Team (Late st Contact Info) Description 07/15/2024 Lab Requisition [facility] - Main Lab 299 [facility] [place] [address] Tabby Bledsoe MD 8[address] [facility] 1 [place], [place] [id number] Essential (primary) hypertension; Hypothyroidism, unspecified; Unspecified atrial [...] mmol/L LAB CHEMISTRY METHOD 07/16/2024 10:45 AM [facility] Potassium 3.6 3.5 - 5.5 mmol/L LAB CHEMISTRY METHOD 07/16/2024 10:45 AM [facility] Chloride 110 96 - 110 mmol/L LAB CHEMISTRY METHOD 07/16/2024 10:45 AM [facility] CO2 31 21 - 32 mmol/L LAB CHEMISTRY METHOD 07/16/2024 10:45 AM [facility] Anion Gap 4 3 - 11 LAB CHEMISTRY METHOD 07/16/2024 10:45 AM [facility] Glucose 107(H) 70 - 100 mg/dL LAB CHEMISTRY METHOD 07/16/2024 10:45 AM [facility] BUN 29(H) 5 - 25 mg/dL LAB CHEMISTRY METHOD 07/16/2024 10:45 AM [facility] Creatinine 1.79(H) 0.70 - 1.30 mg/dL LAB CHEMISTRY METHOD 07/16/2024 10:45 AM [facility] eGFR 37(L) >=60 mL/min/1. 73m2 LAB CHEMISTRY METHOD 07/16/2024 10:45 AM [facility] Comment:Calculation based on the Chronic Kidney Disease Epidemiology Collaboration (CKD-EPI) equation refit without adjustment for race. BUN/Creatinine Ratio 16.2 LAB CHEMISTRY METHOD 07/16/2024 10:45 AM [facility] Calcium 9.9 8.5 - 10.5 mg/dL LAB CHEMISTRY METHOD 07/16/2024 10:45 AM [facility] AST (SGOT) 20 10 - 42 unit/L LAB CHEMISTRY METHOD 07/16/2024 10:45 AM [facility] ALT (SGPT) 12 10 - 60 unit/L LAB CHEMISTRY METHOD 07/16/2024 10:45 AM [facility] Alkaline Phosphatase 106 42 - 121 unit/L LAB CHEMISTRY METHOD 07/16/2024 10:45 AM EST [facility] Total Protein 6.0 6.0 - 8.0 g/dL LAB CHEMISTRY METHOD 07/16/2024 10:45 AM [facility] Albumin 1.6(L) 3.2 - 5.0 g/dL LAB CHEMISTRY METHOD 07/16/2024 10:45 AM [facility] Total Bilirubin 0.4 0.0 - 1.4 mg/dL LAB CHEMISTRY METHOD 07/16/2024 10:45 AM [facility] Blood Venous blood specimen / Unknown Venipuncture / Unknown 07/16/2024 5:50 AM EST 07/16/2024 9:42 AM EST us Tabby Bledsoe MD LAB BLOOD ORDERABLES Fin al Result [facility] [address] [place] [address], [place] [phone] * (ABNORMAL) Complete blood count (07/16/2024 5:50 AM EST) WBC 6.0 4.8 - 10.8 K/mcL LAB HEMETOLOGY METHOD 07/16/2024 9:59 AM [facility] RBC 2.90(L) 4.50 - 5.50 M/mcL LAB HEMETOLOGY METHOD 07/16/2024 9:59 AM [facility] Hemoglobin 7.5(L) 13.5 - 17.5 g/dL LAB HEMETOLOGY METHOD 07/16/2024 9:59 AM [facility] Hematocrit 25.1(L) 42.0 - 54.0 % LAB HEMETOLOGY METHOD 07/16/2024 9:59 AM [facility] MCV 86.9 79.0 - 98.0 FL LAB HEMETOLOGY METHOD 07/16/2024 9:59 AM EST [facility] MCH 26.0(L) 27.0 - 32.0 pcg LAB HEMETOLOGY METHOD 07/16/2024 9:59 AM [facility] MCHC 29.9(L) 32.0 - 37.0 g/dL LAB HEMETOLOGY METHOD 07/16/2024 9:59 AM [facility] RDW 19.1(H) 11.0 - 15.0 % LAB HEMETOLOGY METHOD 07/16/2024 9:59 AM [facility] Platelets 247 130 - 400 K/mcL LAB HEMETOLOGY METHOD 07/16/2024 9:59 AM [facility] MPV 9.7 7.0 - 11.0 FL LAB HEMETOLOGY METHOD 07/16/2024 9:59 AM [facility] NRBC 0.0 <1.0 % LAB HEMETOLOGY METHOD 07/16/2024 9:59 AM [facility] NRBC Absolute 0.00 <0.10 K/mcL LAB HEMETOLOGY METHOD 07/16/2024 9:59 AM [facility] Blood Venous blood specimen / Unknown Venipuncture / Unknown 07/16/2024 5:50 AM EST 07/16/2024 9:42 AM EST us Tabby Bledsoe MD LAB BLOOD ORDERABLES Fin al Result [facility] [address] [place] [address], documented in this encounter Visit Diagnoses Diagnosis Essential (primary) hypertension Unspecified essential hypertension Hypothyroidism, unspecified Unspecified atrial fibrillation (CMS/HCC V24, CMS/HCC V28) documented in this encounter Additional Health Concerns Infection Onset Date Last Indicated Resolved Time ESBL 06/22/2024 06/22/2024 documented as of this encounter Care Teams Asset Protection Lead Relationship Specialty Start Date End Date Uday Sheehan MD [address] [facility] [address] [place] PCP - General Pre Press Proofer 12/19/16 documented as of this encounter
--- OUTSIDE RECORDS SUMMARY | 2025-03-08 21:07 | XMS_ITS | Encounter Summary ---
Author Organization [facility] Address [address] [place] [address] Care Team Providers Care Bone Cooking Operator Name Role Phone Uday Sheehan MD Primary Care Provider [phone] Encounter Details Date Type Department Care Team (Late st Contact Info) Description 11/24/2024 Lab Requisition [facility] - Main Lab [address] [place] [address] Tabby Bledsoe MD [address] [address] Bacteremia Social History Tobacco Use Types Packs/Day [...] Associated Diagnosis Comments COMPLETE BLOOD COUNT Routine 11/25/2024 10:27 AM EDT Bacteremia COMPREHENSIVE METABOLIC PANEL Routine 11/25/2024 10:27 AM EDT Bacteremia documented in this encounter Results * (ABNORMAL) Comprehensive metabolic panel (11/25/2024 10:27 AM EDT) Sodium 136 133 - 145 mmol/L LAB CHEMISTRY METHOD 11/25/2024 2:26 PM EDT [facility] Potassium 4.2 3.5 - 5.5 mmol/L LAB CHEMISTRY METHOD 11/25/2024 2:26 PM [facility] Chloride 104 96 - 110 mmol/L LAB CHEMISTRY METHOD 11/25/2024 2:26 PM [facility] CO2 25 21 - 32 mmol/L LAB CHEMISTRY METHOD 11/25/2024 2:26 PM [facility] Anion Gap 7 3 - 11 LAB CHEMISTRY METHOD 11/25/2024 2:26 PM [facility] Glucose 130(H) 70 - 100 mg/dL LAB CHEMISTRY METHOD 11/25/2024 2:26 PM [facility] BUN 46(H) 5 - 25 mg/dL LAB CHEMISTRY METHOD 11/25/2024 2:26 PM [facility] Creatinine 1.25 0.70 - 1.30 mg/dL LAB CHEMISTRY METHOD 11/25/2024 2:26 PM [facility] eGFR 57(L) >=60 mL/min/1. 73m2 LAB CHEMISTRY METHOD 11/25/2024 2:26 PM [facility] Comment:Calculation based on the Chronic Kidney Disease Epidemiology Collaboration (CKD-EPI) equation refit without adjustment for race. BUN/Creatinine Ratio 36.8 LAB CHEMISTRY METHOD 11/25/2024 2:26 PM [facility] Calcium 8.0(L) 8.5 - 10.5 mg/dL LAB CHEMISTRY METHOD 11/25/2024 2:26 PM [facility] AST (SGOT) 60(H) 10 - 42 unit/L LAB CHEMISTRY METHOD 11/25/2024 2:26 PM [facility] ALT (SGPT) 55 10 - 60 unit/L LAB CHEMISTRY METHOD 11/25/2024 2:26 PM [facility] Alkaline Phosphatase 106 42 - 121 unit/L LAB CHEMISTRY METHOD 11/25/2024 2:26 PM [facility] Total Protein 5.6(L) 6.0 - 8.0 g/dL LAB CHEMISTRY METHOD 11/25/2024 2:26 PM EDT [facility] Albumin 1.4(L) 3.2 - 5.0 g/dL LAB CHEMISTRY METHOD 11/25/2024 2:26 PM EDT [facility] Total Bilirubin 0.3 0.0 - 1.4 mg/dL LAB CHEMISTRY METHOD 11/25/2024 2:26 PM EDT [facility] Blood Venous blood specimen / Unknown Venipuncture / Unknown 11/25/2024 10:27 AM EDT 11/25/2024 12:28 PM EDT us Tabby Bledsoe MD LAB BLOOD ORDERABLES Fin al Result [facility] [address] [place] [address], * (ABNORMAL) Complete blood count (11/25/2024 10:27 AM EDT) WBC 7.7 4.8 - 10.8 K/mcL LAB HEMETOLOGY METHOD 11/25/2024 2:28 PM EDT [facility] RBC 2.60(L) 4.50 - 5.50 M/mcL LAB HEMETOLOGY METHOD 11/25/2024 2:28 PM EDT [facility] Hemoglobin 7.1(L) 13.5 - 17.5 g/dL LAB HEMETOLOGY METHOD 11/25/2024 2:28 PM EDT [facility] Hematocrit 24.3(L) 42.0 - 54.0 % LAB HEMETOLOGY METHOD 11/25/2024 2:28 PM EDT [facility] MCV 93.5 79.0 - 98.0 FL LAB HEMETOLOGY METHOD 11/25/2024 2:28 PM EDT [facility] MCH 27.3 27.0 - 32.0 pcg LAB HEMETOLOGY METHOD 11/25/2024 2:28 PM EDT [facility] MCHC 29.2(L) 32.0 - 37.0 g/dL LAB HEMETOLOGY METHOD 11/25/2024 2:28 PM EDT [facility] RDW 18.7(H) 11.0 - 15.0 % LAB HEMETOLOGY METHOD 11/25/2024 2:28 PM EDT [facility] Platelets 223 130 - 400 K/mcL LAB HEMETOLOGY METHOD 11/25/2024 2:28 PM EDT [facility] MPV 9.2 7.0 - 11.0 FL LAB HEMETOLOGY METHOD 11/25/2024 2:28 PM EDT [facility] NRBC 0.0 <1.0 % LAB HEMETOLOGY METHOD 11/25/2024 2:28 PM EDT [facility] NRBC Absolute 0.00 <0.10 K/mcL LAB HEMETOLOGY METHOD 11/25/2024 2:28 PM EDT [facility] Blood Venous blood specimen / Unknown Venipuncture / Unknown 11/25/2024 10:27 AM EDT 11/25/2024 12:28 PM EDT us Tabby Bledsoe MD LAB BLOOD ORDERABLES Fin al Result [facility] [address] [place] [address], documented in this encounter Visit Diagnoses Diagnosis Bacteremia documented in this encounter Additional Health Concerns Infection Onset Date Last Indicated Resolved Time ESBL 06/22/2024 06/22/2024 documented as of this encounter Care Teams Bone Cooking Operator Relationship Specialty Start Date End Date Uday Sheehan MD [address] [place] [address] Dr [place] PCP - General Plant Utilities Engineer 12/19/16 documented as of this encounter
--- OUTSIDE RECORDS SUMMARY | 2025-03-08 21:08 | XMS_ITS | Encounter Summary ---
Author Organization [facility] Address [address] [place] [address] Care Team Providers Care Hot Plate Plywood Press Operator Name Role Phone Uday Sheehan Primary Care Provider Encounter Details Date Type Department Care Team (Late st Contact Info) Description 03/29/2024 Orders Only [facility] [address] [place] [address] Vasquez Quintanilla MD [address] [place] [address] Social History Tobacco Use Types Packs/Day Years [...] Start Date End Date Uday Sheehan [address] [place] [address] [place] [address] PCP - General Internal Medicine 03/27/24 documented as of this encounter
--- OUTSIDE RECORDS SUMMARY | 2025-03-08 21:08 | XMS_ITS | Encounter Summary ---
Author Organization [facility] Address [address] [place] [id number] Care Team Providers Care Glass Melt Operator Name Role Phone Uday Sheehan Primary Care Provider [phone] Encounter Details Date Type Department Care Team (Late st Contact Info) Description 05/07/2024 Lab Requisition [facility] [address] [place] [address] Salo Whyte MD [address] [place] [address] Acute and chronic respiratory failure with hypoxia; [...] Uric Acid (05/07/2024 8:30 AM EDT) Pathologist [facility] Uric Acid 7.3(H) 3.4 - 7.0 mg/dL 05/07/2024 9:23 AM EDT [facility] Blood Structure of peripheral vein / Unknown Venipuncture / Unknown 05/07/2024 8:30 AM EDT 05/07/2024 8:30 AM EDT us Salo Whyte MD LAB BLOOD ORDERABLES Final Result Performing Organization Address [facility]/ZIP Co de Phone Number [facility] [address] [address], [place] [phone] * (ABNORMAL) TSH (05/07/2024 8:30 AM EDT) Pathologist [facility] TSH 9.930(H) 0.270 - 4.200 uIU/mL 05/07/2024 9:23 AM EDT [facility] Blood Structure of peripheral vein / Unknown Venipuncture / Unknown 05/07/2024 8:30 AM EDT 05/07/2024 8:30 AM EDT us Salo Whyte MD LAB BLOOD ORDERABLES Final Result Performing Organization Address [facility] Co de Phone Number [facility] [address] [place] [address], [place] [phone] * T4, Free (05/07/2024 8:30 AM EDT) Free T4 1.35 0.80 - 1.80 ng/dL 05/07/2024 9:23 AM EDT [facility] Comment: Females: (ng/dL) First Trimester 0.95-1.58 ng/dL Second Trimester 0.76-1.24 ng/dL Third Trimester 0.70-1.25 ng/dL Dietary supplements containing biotin may interfere in assays and may skew analyte results to be falsely high. For patients receiving the recommended daily doses of biotin, draw samples at least 8 hours following the last biotin supplementation. For patients on micheal-doses of biotin supplements, draw samples at least 72 hours following the last biotin supplementation. 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
--- OUTSIDE RECORDS SUMMARY | 2025-03-08 21:08 | XMS_ITS | Encounter Summary ---
Author Organization [facility] Address [address] [place] [address] Care Team Providers Care Dietary Aid Name Role Phone Uday Sheehan Primary Care Provider [phone] Encounter Details Date Type Department Care Team (Late st Contact Info) Description 04/26/2024 Lab Requisition [facility] [address] [place] [address] Ross Buchanan MD [address] [place] [address] Acute and chronic respiratory failure with hypoxia; [...] - 2.5 mg/dL 04/26/2024 10:52 AM EDT [facility] Blood Structure of peripheral vein / Unknown Venipuncture / Unknown 04/26/2024 10:14 AM EDT 04/26/2024 10:14 AM EDT us Ross Buchanan MD LAB BLOOD ORDERABLES Final R esult [facility] [address] [facility] [address] [place] [address], * (ABNORMAL) Comprehensive Metabolic Panel (04/26/2024 10:14 AM EDT) NA 140 136 - 145 mmol/L 04/26/2024 10:52 AM EDT [facility] K 3.8 3.5 - 5.1 mmol/L 04/26/2024 10:52 AM EDT [facility] Cl 98 98 - 109 mmol/L 04/26/2024 10:52 AM EDT [facility] CO2 34(H) 22 - 32 mmol/L 04/26/2024 10:52 AM EDT [facility] Anion Gap 12 >=0 04/26/2024 10:52 AM EDT [facility] Glucose 94 60 - 99 mg/dL 04/26/2024 10:52 AM EDT [facility] Creatinine 1.50(H) 0.50 - 1.12 mg/dL 04/26/2024 10:52 AM EDT [facility] Calcium 9.3 8.4 - 10.4 mg/dL 04/26/2024 10:52 AM EDT [facility] Total Protein 6.0(L) 6.6 - 8.7 g/dL 04/26/2024 10:52 AM EDT [facility] Albumin 2.9(L) 3.5 - 5.0 g/dL 04/26/2024 10:52 AM EDT [facility] Bilirubin, Total 0.3 0.2 - 1.2 mg/dL 04/26/2024 10:52 AM EDT [facility] Alkaline Phosphatase 113 40 - 129 U/L 04/26/2024 10:52 AM EDT [facility] AST 44(H) 0 - 40 U/L 04/26/2024 10:52 AM EDT [facility] ALT 40 <=41 U/L 04/26/2024 10:52 AM T [facility] BUN 51(H) 8 - 23 mg/dL 04/26/2024 10:52 AM T [facility] eGFR 46(L) >=60 mL/min/1. 73m2 04/26/2024 10:52 AM T [facility] Comment:The estimated glomer ular [...] - 4.2 g/dL 04/26/2024 10:52 AM T [facility] A/G Ratio 0.9(L) 1.5 - 3.0 04/26/2024 10:52 AM [facility] Blood Structure of peripheral vein / Unknown Venipuncture / Unknown 04/26/2024 10:14 AM EDT 04/26/2024 10:14 AM EDT us Ross Buchanan MD LAB BLOOD ORDERABLES Final R esult [facility] [address] [place] [address], documented in this encounter Visit Diagnoses Diagnosis Acute and chronic respiratory failure with hypoxia (HCC) No diagnosis documented in this encounter Additional Health Concerns Infection Onset Date Last Indicated Resolved Time 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
--- OUTSIDE RECORDS SUMMARY | 2025-03-08 21:08 | XMS_ITS | Encounter Summary ---
Author Organization [facility] Address [address] [place] [address] Care Team Providers Care Pipe Organ Builder Name Role Phone Uday Sheehan Primary Care Provider [phone] Encounter Details Date Type Department Care Team (Late st Contact Info) Description 04/24/2024 Lab Requisition [facility] [address] [place] [address] Lidia Barry, CB [address] [place] [address] Acute and chronic respiratory failure with hypoxia; [...] - 10.8 10*3/uL 04/24/2024 10:46 AM EDT [facility] RBC 2.90(L) 4.70 - 6.10 10*6/uL 04/24/2024 10:46 AM EDT [facility] Hemoglobin 8.1(L) 13.7 - 16.5 g/dL 04/24/2024 10:46 AM EDT [facility] Hematocrit 25.3(L) 40.5 - 48.5 % 04/24/2024 10:46 AM EDT [facility] MCV 87.2 80.0 - 94.0 fL 04/24/2024 10:46 AM EDT [facility] MCH 27.9 26.0 - 34.0 pg 04/24/2024 10:46 AM EDT [facility] MCHC 32.0 31.0 - 36.0 g/dL 04/24/2024 10:46 AM EDT [facility] RDW 16.2(H) 12.0 - 15.0 % 04/24/2024 10:46 AM EDT [facility] RDW Standard Deviation 51.6(H) 35.1 - 43.9 fL 04/24/2024 10:46 AM EDT [facility] Platelets 160 140 - 440 10*3/uL 04/24/2024 10:46 AM EDT [facility] MPV 10.7 9.4 - 12.4 fL 04/24/2024 10:46 AM EDT [facility] Neutrophil % 51.2 50.0 - 75.0 % 04/24/2024 10:46 AM EDT [facility] Immature Grans % 0.2 0.0 - 0.9 % 04/24/2024 10:46 AM EDT [facility] Lymphocyte % 24.6 20.0 - 44.0 % 04/24/2024 10:46 AM EDT [facility] Monocyte % 18.4(H) 0.0 - 14.0 % 04/24/2024 10:46 AM EDT [facility] Eosinophil % 5.1(H) 0.0 - 5.0 % 04/24/2024 10:46 AM EDT [facility] Basophil % 0.5 0.0 - 2.0 % 04/24/2024 10:46 AM EDT [facility] Neutrophil # 2.80 1.80 - 7.70 10*3/uL 04/24/2024 10:46 AM EDT [facility] Immature Grans # <0.03 0.00 - 0.03 10*3/uL 04/24/2024 10:46 AM EDT [facility] Lymphocyte # 1.40 1.00 - 4.75 10*3/uL 04/24/2024 10:46 AM EDT [facility] Monocyte # 1.00 0.00 - 6.00 10*3/uL 04/24/2024 10:46 AM EDT [facility] Eosinophil # 0.30 0.00 - 0.80 10*3/uL 04/24/2024 10:46 AM EDT [facility] Basophil # <0.03 0.00 - 0.20 10*3/uL 04/24/2024 10:46 AM EDT [facility] nRBC % 0.0 0 - 0 /100 WBCs 04/24/2024 10:46 AM EDT [facility] nRBC # <0.01 0.00 - 0.13 10*3/uL 04/24/2024 10:46 AM EDT [facility] Blood Structure of peripheral vein / Unknown Venipuncture / Unknown 04/24/2024 8:53 AM EDT 04/24/2024 10:36 AM EDT us Lidia Barry FOURDRINIER MACHINE OPERATOR LAB BLOOD ORDERABLES Final R esult [facility] [address] [place] [address], * (ABNORMAL) Comprehensive Metabolic Panel (04/24/2024 8:53 AM EDT) NA 140 136 - 145 mmol/L 04/24/2024 11:40 AM EDT [facility] K 4.2 3.5 - 5.1 mmol/L 04/24/2024 11:40 AM EDT [facility] Cl 96(L) 98 - 109 mmol/L 04/24/2024 11:40 AM EDT [facility] CO2 33(H) 22 - 32 mmol/L 04/24/2024 11:40 AM EDT [facility] Anion Gap 15 >=0 04/24/2024 11:40 AM EDT [facility] Glucose 100(H) 60 - 99 mg/dL 04/24/2024 11:40 AM EDT [facility] Creatinine 1.60(H) 0.50 - 1.12 mg/dL 04/24/2024 11:40 AM EDT [facility] Calcium 9.6 8.4 - 10.4 mg/dL 04/24/2024 11:40 AM EDT [facility] Total Protein 5.9(L) 6.6 - 8.7 g/dL 04/24/2024 11:40 AM EDT [facility] Albumin 3.1(L) 3.5 - 5.0 g/dL 04/24/2024 11:40 AM EDT [facility] Bilirubin, Total 0.3 0.2 - 1.2 mg/dL 04/24/2024 11:40 AM EDT [facility] Alkaline Phosphatase 112 40 - 129 U/L 04/24/2024 11:40 AM EDT [facility] AST 32 0 - 40 U/L 04/24/2024 11:40 AM EDT [facility] ALT 33 <=41 U/L 04/24/2024 11:40 AM EDT [facility] BUN 53(H) 8 - 23 mg/dL 04/24/2024 11:40 AM EDT [facility] eGFR 42(L) >=60 mL/min/1. 73m2 04/24/2024 11:40 AM EDT [facility] Comment:The estimated glomer [...] - 4.2 g/dL 04/24/2024 11:40 AM EDT [facility] A/G Ratio 1.1(L) 1.5 - 3.0 04/24/2024 11:40 AM EDT [facility] Blood Structure of peripheral vein / Unknown Venipuncture / Unknown 04/24/2024 8:53 AM EDT 04/24/2024 10:36 AM EDT [facility] FOURDRINIER MACHINE OPERATOR LAB BLOOD ORDERABLES Final R esult [facility] [address] [place] [address] [address] [place] [address], documented in this encounter Visit Diagnoses Diagnosis Acute and chronic respiratory failure with hypoxia (HCC) No diagnosis documented in this encounter Additional Health Concerns Infection Onset Date Last Indicated Resolved Time 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
--- OUTSIDE RECORDS SUMMARY | 2025-03-08 21:08 | XMS_ITS | Encounter Summary ---
Author Organization [facility] Address [address] [place] [address] Phone Care Team Providers Care Criminal Justice Instructor Name Role Phone Uday Sheehan MD Primary Care Provider [phone] Encounter Details Date Type Department Care Team (Late st Contact Info) Description 04/20/2022 Documentation Only [facility] [address] [place] [address] Adi Jaeger MD [address] [place] [address] [place] [address] Social History Tobacco Use Types [...] on filedocumented in this encounter Care Teams Criminal Justice Instructor Relationship Specialty Start Date End Date Uday Sheehan MD [address] [place] [address] [address] ALEC RING PCP - General 05/14/19 documented as of this encounter
--- OUTSIDE RECORDS SUMMARY | 2025-03-08 21:08 | XMS_ITS | Encounter Summary ---
Author Organization [facility] Address [address] [place] [address] Care Team Providers Care Steam Tender Name Role Phone Uday Sheehan MD Primary Care Provider [phone] Encounter Details Date Type Department Care Team (Late st Contact Info) Description 10/18/2024 Lab Requisition [facility] - Main Lab [address] [facility] [place] [address] Tabby Bledsoe MD [address] [facility] [address] [place] [address] Osteomyelitis, unspecified (CMS/HCC V24, CMS/HCC V28) Social [...] (ABNORMAL) Sedimentation rate (10/18/2024 7:01 AM EDT) [facility] Sed Rate 58(H) 0 - 20 mm/hr LAB HEMETOLOGY METHOD 10/18/2024 10:[address] [facility] Blood Venous blood specimen / Unknown Venipuncture / Unknown 10/18/2024 7:01 AM EDT 10/18/2024 9:11 AM EDT Tabby Bledsoe MD LAB BLOOD ORDERABLES Fin al Result Performing Organization Address City/[facility]/ZIP Co de Phone Number [facility] [address] [place] [address], [place] [phone] * (ABNORMAL) C-reactive protein (10/18/2024 7:01 AM EDT) [facility] C-Reactive Protein 13.40(H) <=0.50 mg/dL LAB CHEMISTRY METHOD 10/18/2024 10:[address] [facility] Blood Venous blood specimen / Unknown Venipuncture / Unknown 10/18/2024 7:01 AM EDT 10/18/2024 9:11 AM EDT Tabby Bledsoe MD LAB BLOOD ORDERABLES Fin al Result Performing Organization Address City/[facility]/ZIP Co de Phone Number [facility] [address] [place] [address], [place] [phone] * (ABNORMAL) Complete blood count (10/18/2024 7:01 AM EDT) [facility] WBC 6.6 4.8 - 10.8 K/[facility] LAB HEMETOLOGY METHOD 10/18/2024 9:[address] [facility] RBC 2.40(L) 4.50 - 5.50 M/[facility] LAB HEMETOLOGY METHOD 10/18/2024 9:51 AM [facility] Hemoglobin 6.7(L) 13.5 - 17.5 g/dL LAB HEMETOLOGY METHOD 10/18/2024 9:51 AM [facility] Hematocrit 22.8(L) 42.0 - 54.0 % LAB HEMETOLOGY METHOD 10/18/2024 9:51 AM [facility] MCV 93.4 79.0 - 98.0 FL LAB HEMETOLOGY METHOD 10/18/2024 9:51 AM [facility] MCH 27.5 27.0 - 32.0 pcg LAB HEMETOLOGY METHOD 10/18/2024 9:51 AM [facility] MCHC 29.4(L) 32.0 - 37.0 g/dL LAB HEMETOLOGY METHOD 10/18/2024 9:51 AM [facility] RDW 16.7(H) 11.0 - 15.0 % LAB HEMETOLOGY METHOD 10/18/2024 9:51 AM [facility] Platelets 259 130 - 400 K/mcL LAB HEMETOLOGY METHOD 10/18/2024 9:51 AM [facility] MPV 9.2 7.0 - 11.0 FL LAB HEMETOLOGY METHOD 10/18/2024 9:51 AM [facility] NRBC 0.0 <1.0 % LAB HEMETOLOGY METHOD 10/18/2024 9:51 AM [facility] NRBC Absolute 0.00 <0.10 K/mcL LAB HEMETOLOGY METHOD 10/18/2024 9:51 AM [facility] Blood Venous blood specimen / Unknown Venipuncture / Unknown 10/18/2024 7:01 AM EDT 10/18/2024 9:11 AM EDT Tabby Bledsoe MD LAB BLOOD ORDERABLES Fin al Result [facility] [address] [place] [address], documented in this encounter Visit Diagnoses Diagnosis Osteomyelitis, unspecified (CMS/HCC V24, CMS/HCC V28) documented in this encounter Additional Health Concerns Infection Onset Date Last Indicated Resolved Time ESBL 06/22/2024 06/22/2024 documented as of this encounter Care Teams Steam Tender Relationship Specialty Start Date End Date Uday Sheehan MD [address] [place] [address] Dr Donna [place] PCP - General Sergeant Of Corrections 12/19/16 documented as of this encounter
--- OUTSIDE RECORDS SUMMARY | 2025-03-08 21:08 | XMS_ITS | Encounter Summary ---
Author Organization [facility] Address [address] [place] [address] Care Team Providers Care Service Architect Name Role Phone Uday Sheehan MD Primary Care Provider [phone] Encounter Details Date Type Department Care Team (Late st Contact Info) Description 06/07/2024 Lab Requisition [facility] - Main Lab 299 [facility] [place] [address] Zak Zuluaga MD [address] [place], [place] [id number] Unspecified atrial fibrillation (CMS/HCC V24, CMS/HCC V28); [...] mmol/L LAB CHEMISTRY METHOD 06/10/2024 9:35 AM [facility] Potassium 4.2 3.5 - 5.5 mmol/L LAB CHEMISTRY METHOD 06/10/2024 9:35 AM [facility] Chloride 112(H) 96 - 110 mmol/L LAB CHEMISTRY METHOD 06/10/2024 9:35 AM [facility] CO2 25 21 - 32 mmol/L LAB CHEMISTRY METHOD 06/10/2024 9:35 AM [facility] Anion Gap 7 3 - 11 LAB CHEMISTRY METHOD 06/10/2024 9:35 AM [facility] Glucose 84 70 - 100 mg/dL LAB CHEMISTRY METHOD 06/10/2024 9:35 AM [facility] BUN 41(H) 5 - 25 mg/dL LAB CHEMISTRY METHOD 06/10/2024 9:35 AM [facility] Creatinine 2.66(H) 0.70 - 1.30 mg/dL LAB CHEMISTRY METHOD 06/10/2024 9:35 AM [facility] eGFR 23(L) >=60 mL/min/1. 73m2 LAB CHEMISTRY METHOD 06/10/2024 9:35 AM [facility] Comment:Calculation based on the Chronic Kidney Disease Epidemiology Collaboration (CKD-EPI) equation refit without adjustment for race. BUN/Creatinine Ratio 15.4 LAB CHEMISTRY METHOD 06/10/2024 9:35 AM [facility] Calcium 7.8(L) 8.5 - 10.5 mg/dL LAB CHEMISTRY METHOD 06/10/2024 9:35 AM [facility] AST (SGOT) 262(H) 10 - 42 unit/L LAB CHEMISTRY METHOD 06/10/2024 9:35 AM [facility] ALT (SGPT) 146(H) 10 - 60 unit/L LAB CHEMISTRY METHOD 06/10/2024 9:35 AM [facility] Alkaline Phosphatase 94 42 - 121 unit/L LAB CHEMISTRY METHOD 06/10/2024 9:35 AM [facility] Total Protein 5.1(L) 6.0 - 8.0 g/dL LAB CHEMISTRY METHOD 06/10/2024 9:35 AM [facility] Albumin 1.6(L) 3.2 - 5.0 g/dL LAB CHEMISTRY METHOD 06/10/2024 9:35 AM [facility] Total Bilirubin 0.4 0.0 - 1.4 mg/dL LAB CHEMISTRY METHOD 06/10/2024 9:35 AM [facility] Blood Venous blood specimen / Unknown Venipuncture / Unknown 06/10/2024 6:43 AM EST 06/10/2024 8:01 AM EST us Zak Zuluaga MD LAB BLOOD ORDERABLES Final Resul t [facility] [address] [place] [address], [place] [phone] * (ABNORMAL) Complete blood count (06/10/2024 6:43 AM EST) WBC 4.7(L) 4.8 - 10.8 K/mcL LAB HEMETOLOGY METHOD 06/10/2024 8:36 AM [facility] RBC 2.40(L) 4.50 - 5.50 M/mcL LAB HEMETOLOGY METHOD 06/10/2024 8:36 AM [facility] Hemoglobin 6.3(LL) 13.5 - 17.5 g/dL LAB HEMETOLOGY METHOD 06/10/2024 8:36 AM [facility] Hematocrit 21.0(L) 42.0 - 54.0 % LAB HEMETOLOGY METHOD 06/10/2024 8:36 AM [facility] MCV 88.0 79.0 - 98.0 FL LAB HEMETOLOGY METHOD 06/10/2024 8:36 AM EST [facility] MCH 26.0(L) 27.0 - 32.0 pcg LAB HEMETOLOGY METHOD 06/10/2024 8:36 AM [facility] MCHC 29.6(L) 32.0 - 37.0 g/dL LAB HEMETOLOGY METHOD 06/10/2024 8:36 AM [facility] RDW 17.1(H) 11.0 - 15.0 % LAB HEMETOLOGY METHOD 06/10/2024 8:36 AM [facility] Platelets 169 130 - 400 K/mcL LAB HEMETOLOGY METHOD 06/10/2024 8:36 AM [facility] MPV 10.3 7.0 - 11.0 FL LAB HEMETOLOGY METHOD 06/10/2024 8:36 AM [facility] NRBC 0.0 <1.0 % LAB HEMETOLOGY METHOD 06/10/2024 8:36 AM [facility] NRBC Absolute 0.00 <0.10 K/mcL LAB HEMETOLOGY METHOD 06/10/2024 8:36 AM [facility] Blood Venous blood specimen / Unknown Venipuncture / Unknown 06/10/2024 6:43 AM EST 06/10/2024 8:01 AM EST us Zak Zuluaga MD LAB BLOOD ORDERABLES Final Resul t [facility] [address] [place] [address], documented in this encounter Visit Diagnoses Diagnosis Unspecified atrial fibrillation (CMS/HCC V24, CMS/HCC V28) Essential (primary) hypertension Unspecified essential hypertension documented in this encounter Additional Health Concerns Infection Onset Date Last Indicated Resolved Time ESBL 06/22/2024 06/22/2024 documented as of this encounter Care Teams Service Architect Relationship Specialty Start Date End Date Uday Sheehan MD [address] [place] [address] Dr Donna [place] PCP - General Upholstery Repairer 12/19/16 documented as of this encounter
--- OUTSIDE RECORDS SUMMARY | 2025-03-08 21:08 | XMS_ITS | Encounter Summary ---
Author Organization [facility] Address [address] [place] [address] Phone Care Team Providers Care Poker In Name Role Phone Uday Sheehan MD Primary Care Provider [phone] Encounter Details Date Type Department Care Team (Late st Contact Info) Description 09/08/2023 Documentation Only [facility], [address] [place] [address] [facility] [place] [address] [place] [address] Social History Tobacco Use Types [...] on filedocumented in this encounter Care Teams Poker In Relationship Specialty Start Date End Date Uday Sheehan MD [address] [place], [place] PCP - General 05/14/19 documented as of this encounter
--- OUTSIDE RECORDS SUMMARY | 2025-03-08 21:08 | XMS_ITS | Encounter Summary ---
Author Organization [facility] Address [address] [place] [address] Care Team Providers Care Dyeing Machine Tender Name Role Phone Uday Sheehan MD Primary Care Provider [phone] Encounter Details Date Type Department Care Team (Late st Contact Info) Description 01/17/2025 Lab Requisition [facility] - Main Lab [address] [place] [address] Tabby Bledsoe MD [address] [address] Bacteremia Social History Tobacco Use Types Packs/Day [...] Associated Diagnosis Comments COMPLETE BLOOD COUNT Routine 01/20/2025 8:29 AM EDT Bacteremia COMPREHENSIVE METABOLIC PANEL Routine 01/20/2025 8:29 AM EDT Bacteremia documented in this encounter Results * (ABNORMAL) Comprehensive metabolic panel (01/20/2025 8:29 AM EDT) Sodium 139 133 - 145 mmol/L LAB CHEMISTRY METHOD 01/20/2025 3:02 PM EDT [facility] Potassium 4.5 3.5 - 5.5 mmol/L LAB CHEMISTRY METHOD 01/20/2025 3:02 PM [facility] Chloride 103 96 - 110 [...] LAB CHEMISTRY METHOD 01/20/2025 3:02 PM EDT [facility] Albumin 1.5(L) 3.2 - 5.0 g/dL LAB CHEMISTRY METHOD 01/20/2025 3:02 PM EDT [facility] Total Bilirubin 0.3 0.0 - 1.4 mg/dL LAB CHEMISTRY METHOD 01/20/2025 3:02 PM EDT [facility] Blood Venous blood specimen / Unknown Venipuncture / Unknown 01/20/2025 8:29 AM EDT 01/20/2025 10:07 AM EDT us Tabby Bledsoe MD LAB BLOOD ORDERABLES Fin al Result [facility] [address] [place] [address], * (ABNORMAL) Complete blood count (01/20/2025 8:29 AM EDT) WBC 6.4 4.8 - 10.8 K/mcL LAB HEMETOLOGY METHOD 01/20/2025 12:47 PM [facility] RBC 2.60(L) 4.50 - 5.50 M/mcL LAB HEMETOLOGY METHOD 01/20/2025 12:47 PM [facility] Hemoglobin 6.8(L) 13.5 - 17.5 g/dL LAB HEMETOLOGY METHOD 01/20/2025 12:47 PM EDT [facility] Hematocrit 24.8(L) 42.0 - 54.0 % LAB HEMETOLOGY METHOD 01/20/2025 12:[facility] MCV 94.3 79.0 - 98.0 FL LAB HEMETOLOGY METHOD 01/20/2025 12:47 PM [facility] MCH 25.9(L) 27.0 - 32.0 pcg LAB HEMETOLOGY METHOD 01/20/2025 12:47 PM EDT [facility] MCHC 27.4(L) 32.0 - 37.0 g/dL LAB HEMETOLOGY METHOD 01/20/2025 12:47 PM EDT [facility] RDW 18.0(H) 11.0 - 15.0 % LAB HEMETOLOGY METHOD 01/20/2025 12:47 PM EDT [facility] Platelets 191 130 - 400 K/mcL LAB HEMETOLOGY METHOD 01/20/2025 12:47 PM EDT [facility] MPV 9.5 7.0 - 11.0 FL LAB HEMETOLOGY METHOD 01/20/2025 12:47 PM EDT [facility] NRBC 0.0 <1.0 % LAB HEMETOLOGY METHOD 01/20/2025 12:47 PM EDT [facility] NRBC Absolute 0.00 <0.10 K/mcL LAB HEMETOLOGY METHOD 01/20/2025 12:47 PM EDT [facility] Blood Venous blood specimen / Unknown Venipuncture / Unknown 01/20/2025 8:29 AM EDT 01/20/2025 10:10 AM EDT us Tabby Bledsoe MD LAB BLOOD ORDERABLES Fin al Result [facility] [address] [place] [address], documented in this encounter Visit Diagnoses Diagnosis Bacteremia documented in this encounter Additional Health Concerns Infection Onset Date Last Indicated Resolved Time ESBL 06/22/2024 06/22/2024 documented as of this encounter Care Teams Dyeing Machine Tender Relationship Specialty Start Date End Date Uday Sheehan MD [address] [place] [address] Dr Thompson [place] PCP - General It Service Delivery Manager 12/19/16 documented as of this encounter
--- OUTSIDE RECORDS SUMMARY | 2025-03-08 21:08 | XMS_ITS | Encounter Summary ---
Author Organization [facility] Address [address] [place] [address] Care Team Providers Care Technology Applications Consultant Name Role Phone Uday Sheehan MD Primary Care Provider [phone] Encounter Details Date Type Department Care Team (Late st Contact Info) Description 06/05/2024 Lab Requisition [facility] - Main Lab [address] [place] [address] Natanael Rodney MD [address] [place] [address] [place] [address] Chronic kidney disease, [...] AM EST) WBC 7.2 4.8 - 10.8 K/[facility] LAB HEMETOLOGY METHOD 06/05/2024 11:10 AM EST [facility] RBC 2.70(L) 4.50 - [...] LAB BLOOD ORDERABLES Final Resu lt [facility] ([facility] [address] [place] [address], documented in this encounter Visit Diagnoses Diagnosis Chronic kidney disease, unspecified Essential (primary) hypertension Unspecified essential hypertension Unspecified atrial fibrillation (CMS/HCC V24, CMS/HCC V28) documented in this encounter Additional Health Concerns Infection Onset Date Last Indicated Resolved Time ESBL 06/22/2024 06/22/2024 documented as of this encounter Care Teams Technology Applications Consultant Relationship Specialty Start Date End Date Uday Sheehan MD [address] [place] [address] Dr Donna [place] PCP - General Manipulative Therapy Specialist 12/19/16 documented as of this encounter
--- OUTSIDE RECORDS SUMMARY | 2025-03-08 21:08 | XMS_ITS | Encounter Summary ---
Author Organization [facility] Address [address] [place] [address] Care Team Providers Care Patient Financial Services Specialist Name Role Phone Uday Sheehan MD Primary Care Provider [phone] Encounter Details Date Type Department Care Team (Late st Contact Info) Description 09/20/2024 Lab Requisition [facility] - Main Lab [address] [place] [address] Tabby Bledsoe MD [address] [address] Bacteremia Social History Tobacco Use Types Packs/Day [...] LAB CHEMISTRY METHOD 09/23/2024 3:[address] [facility] Potassium 4.3 3.5 - 5.5 mmol/L LAB CHEMISTRY METHOD 09/23/2024 3:[address] [facility] Chloride 99 96 - 110 mmol/L LAB CHEMISTRY METHOD 09/23/2024 3:[address] [facility] CO2 30 21 - 32 mmol/L LAB CHEMISTRY METHOD 09/23/2024 3:[address] [facility] Anion Gap 6 3 - 11 LAB CHEMISTRY METHOD 09/23/2024 3:[address] [facility] Glucose 96 70 - 100 mg/dL LAB CHEMISTRY METHOD 09/23/2024 3:[address] [facility] BUN 25 5 - 25 mg/dL LAB CHEMISTRY METHOD 09/23/2024 3:[address] [facility] Creatinine 1.36(H) 0.70 - 1.30 mg/dL LAB CHEMISTRY METHOD 09/23/2024 3:[address] [facility] eGFR 51(L) >=60 mL/min/1. 73m2 LAB CHEMISTRY METHOD 09/23/2024 3:[address] [facility] Comment:Calculation based on the Chronic Kidney Disease Epidemiology Collaboration (CKD-EPI) equation refit without adjustment for race. BUN/Creatinine Ratio 18.4 LAB CHEMISTRY METHOD 09/23/2024 3:[address] [facility] Calcium 8.1(L) 8.5 - 10.5 mg/dL LAB CHEMISTRY METHOD 09/23/2024 3:[address] [facility] AST (SGOT) 63(H) 10 - 42 unit/L LAB CHEMISTRY METHOD 09/23/2024 3:[address] [facility] ALT (SGPT) 45 10 - 60 unit/L LAB CHEMISTRY METHOD 09/23/2024 3:[address] [facility] Alkaline Phosphatase 86 42 - 121 unit/L LAB CHEMISTRY METHOD 09/23/2024 3:[address] [facility] Total Protein 5.3(L) 6.0 - 8.0 g/dL LAB CHEMISTRY METHOD 09/23/2024 3:[address] [facility] Albumin 1.4(L) 3.2 - 5.0 g/dL LAB CHEMISTRY METHOD 09/23/2024 3:[address] [facility] Total Bilirubin 0.3 0.0 - 1.4 mg/dL LAB CHEMISTRY METHOD 09/23/2024 3:[address] [facility] Blood Venous blood specimen / Unknown Venipuncture / Unknown 09/23/2024 7:46 AM EDT 09/23/2024 11:37 AM EDT us Tabby Bledsoe MD LAB BLOOD ORDERABLES Fin al Result [facility] [address] [place] [address], * (ABNORMAL) Complete blood count (09/23/2024 7:46 AM EDT) WBC 7.1 4.8 - 10.8 K/mcL LAB HEMETOLOGY METHOD 09/23/2024 12:[address] [facility] RBC 2.60(L) 4.50 - 5.50 M/mcL LAB HEMETOLOGY METHOD [facility] Hemoglobin 7.2(L) 13.5 - 17.5 g/dL LAB HEMETOLOGY METHOD 09/23/2024 12:[address] [facility] Hematocrit 23.7(L) 42.0 - 54.0 % LAB HEMETOLOGY METHOD 09/23/2024 12:[address] [facility] MCV 91.5 79.0 - 98.0 FL LAB HEMETOLOGY METHOD [facility]/23[facility]24 [facility] MCH 27.8 27.0 - 32.0 pcg LAB HEMETOLOGY METHOD 09/23/2024 12:[address] [facility] MCHC 30.4(L) 32.0 - 37.0 g/dL LAB HEMETOLOGY METHOD 09/23/2024 12:[address] [facility] RDW 16.7(H) 11.0 - 15.0 % LAB HEMETOLOGY METHOD 09/23/2024 12:[address] [facility] Platelets 253 130 - 400 K/mcL LAB HEMETOLOGY METHOD 09/23/2024 12:[address] [facility] MPV 9.4 7.0 - 11.0 FL LAB HEMETOLOGY METHOD 09/23/2024 12:[address] [facility] NRBC 0.0 <1.0 % LAB HEMETOLOGY METHOD 09/23/2024 12:[address] [facility] NRBC Absolute 0.00 <0.10 K/mcL LAB HEMETOLOGY METHOD 09/23/2024 12:[address] [facility] Blood Venous blood specimen / Unknown Venipuncture / Unknown 09/23/2024 7:46 AM EDT 09/23/2024 11:37 AM EDT us Tabby Bledsoe MD LAB BLOOD ORDERABLES Fin al Result [facility] [address] [place] [address], documented in this encounter Visit Diagnoses Diagnosis Bacteremia documented in this encounter Additional Health Concerns Infection Onset Date Last Indicated Resolved Time ESBL 06/22/2024 06/22/2024 documented as of this encounter Care Teams Patient Financial Services Specialist Relationship Specialty Start Date End Date Uday Sheehan MD [address] [place] [address] Dr Thompson [place] PCP - General Bail Bondsman 12/19/16 documented as of this encounter
--- OUTSIDE RECORDS SUMMARY | 2025-03-08 21:08 | XMS_ITS | Encounter Summary ---
Author Organization [facility] Address [address] [place] [address] Care Team Providers Care Patient Services Rep Name Role Phone Uday Sheehan Primary Care Provider [phone] Encounter Details Date Type Department Care Team (Late st Contact Info) Description 05/18/[address] [facility] [address] [place] [address] Valarie Pierson MD [address] [place] [address] Acute and chronic respiratory failure with hypoxia; [...] encounter Procedures * Due to [place] [employer] law, this organization might not be sharing negative HIV tests. Procedure Name Priority Date/Time Associated Diagnosis Comments BASIC METABOLIC PANEL Routine 05/18/2024 6:18 AM EST Acute and chronic respiratory failure with hypoxia (HCC) No diagnosis documented in this encounter Results * Due to [place] [employer] law, this organization might not be sharing [...] 0.50 - 1.12 mg/dL 05/18/2024 10:44 AM [facility] Glucose 102(H) 60 - 99 mg/dL [...] HOSPITAL-MAIN LAB [address] [place] [address], documented in this encounter Visit Diagnoses Diagnosis Acute and chronic respiratory failure with hypoxia (HCC) No diagnosis documented in this encounter Additional Health Concerns Infection Onset Date Last Indicated Resolved Time 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
--- OUTSIDE RECORDS SUMMARY | 2025-03-08 21:08 | XMS_ITS | Encounter Summary ---
Author Organization [facility] Address [address] [place] [address] Care Team Providers Care Hoe Runner Name Role Phone Uday Sheehan Primary Care Provider [phone] Encounter Details Date Type Department Care Team (Late st Contact Info) Description 03/23/2024 Lab Requisition [facility] [address] [place] [address] Valarie Pierson MD [address] [place] [address] Acute and chronic respiratory failure with hypoxia; [...] this encounter Procedures * Due to [place] [employer] law, this organization might not be sharing negative HIV tests. Procedure Name Priority Date/Time Associated Diagnosis Comments VANCOMYCIN, TROUGH Routine 03/23/2024 5: 30 AM EDT Acute and chronic respiratory failure with hypoxia (HCC) No diagnosis documented in this encounter Results * Due to [place] [employer] law, this organization might not be sharing negative HIV tests. * Vancomycin, Trough (03/23/2024 5:30 AM EDT) Vancomycin Trough 15.6 10.0 - 20.0 ug/mL 03/23/2024 11:45 AM EDT [facility] Blood Structure of peripheral vein / Unknown Venipuncture / Unknown 03/23/2024 5:30 AM EDT 03/23/2024 9:17 AM EDT us Valarie Pierson MD LAB BLOOD ORDERABLES Final Res ult [facility] [address] [place] [address], documented in this encounter Visit Diagnoses Diagnosis [...] documented as of this encounter Care Teams Hoe Runner Relationship Specialty Start Date End Date Uday Sheehan [address] [place] [address] [place] [address] PCP - General Internal Medicine 03/27/24 documented as of this encounter
--- OUTSIDE RECORDS SUMMARY | 2025-03-08 21:08 | XMS_ITS | Encounter Summary ---
Author Organization [facility] Address [address] [place] [address] Care Team Providers Care Education And Development Manager Name Role Phone Uday Sheehan Primary Care Provider [phone] Encounter Details Date Type Department Care Team (Late st Contact Info) Description 05/07/2024 Lab Requisition [facility] Department [address] [place] [address] Robert Whyte [address] [address] Acute and chronic respiratory failure with hypoxia; [...] (MRSA)(A) [place] MANUAL 05/09/2024 9:10 AM EDT [facility] Swab Nasal structure / Unknown 05/07/2024 3:33 PM EDT 05/07/2024 4:19 PM EDT [facility] LAB MICROBIOLOGY - GENERAL ORDER KINSEY Final Result [facility] [address] [place] [address] [address] [place] [address], * (ABNORMAL) Respiratory Culture w/Gram Stain (05/07/2024 3:33 PM EDT) Respiratory Culture Moderate Methicillin resistant Staphylococcus aureus (MRSA)(A) MINIMUM INHIBITORY CONCENTRATION ([place]) 05/10/2024 8:39 AM EDT [facility] Gram Stain Result <10 per LPF Epithelial Cells 05/10/2024 8:39 AM EDT [facility] Gram Stain Result >25 per LPF White Blood Cells Seen 05/10/2024 8:39 AM EDT [facility] Gram Stain Result Rare Gram Positive Cocci 05/10/2024 8:39 AM EDT [facility] Gram Stain Result Rare Pleomorphic gram positive rods 05/10/2024 8:39 AM EDT [facility] Sputum Sputum / Unknown 05/07/2024 3:33 PM EDT 05/07/2024 3:33 PM EDT Narrative [facility] - 05/10/2024 8:39 AM EDT [...] Inducible Clindamycin Resistance has not been found. 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
--- OUTSIDE RECORDS SUMMARY | 2025-03-08 21:08 | XMS_ITS | Encounter Summary ---
Author Organization [facility] Address [address] [place] [address] Care Team Providers Care Franchise Development Manager Name Role Phone Uday Sheehan Primary Care Provider [phone] Encounter Details Date Type Department Care Team (Late st Contact Info) Description 05/07/2024 Lab Requisition [facility] Site Department [address] [place] [address] Isabell Robert [address] [address] Acute and chronic respiratory failure with hypoxia; [...] documented as of this encounter Care Teams Franchise Development Manager Relationship Specialty Start Date End Date Uday Sheehan [address] [place] [address] [place] [address] PCP - General Internal Medicine 03/27/24 documented as of this encounter
--- OUTSIDE RECORDS SUMMARY | 2025-03-08 21:08 | XMS_ITS | Encounter Summary ---
Author Organization [facility] Address [address] [place] [address] Care Team Providers Care Extrusion Die Template Maker Name Role Phone Uday Sheehan MD Primary Care Provider [phone] Encounter Details Date Type Department Care Team (Late st Contact Info) Description 09/05/2024 Lab Requisition [facility] - Main Lab [address] [place] [address] Tabby Bledsoe MD [address] [address] Osteomyelitis, unspecified (CMS/HCC V24, CMS/HCC V28); Extended [...] LAB CHEMISTRY METHOD 09/05/2024 10:44 AM EST [facility] Blood Venous blood specimen / Unknown Venipuncture / Unknown 09/05/2024 6:37 AM EST 09/05/2024 9:06 AM EST us Tabby Bledsoe MD LAB BLOOD ORDERABLES Fin al Result [facility] ([facility] [address] [place] [address], documented in this encounter Visit Diagnoses Diagnosis Osteomyelitis, unspecified ([facility] V24, [facility] V28) Extended spectrum beta lactamase (ESBL) resistance documented in this encounter Additional Health Concerns Infection Onset Date Last Indicated Resolved Time ESBL 06/22/2024 06/22/2024 documented as of this encounter Care Teams Extrusion Die Template Maker Relationship Specialty Start Date End Date Uday Sheehan MD [address] [place] [address] Dr Thompson [place] PCP - General Digital Composer 12/19/16 documented as of this encounter
--- OUTSIDE RECORDS SUMMARY | 2025-03-08 21:08 | XMS_ITS | Encounter Summary ---
Author Organization [facility] Address [address] [place] [address] Care Team Providers Care Floating Labor Gang Supervisor Name Role Phone Uday Sheehan Primary Care Provider [phone] Encounter Details Date Type Department Care Team (Late st Contact Info) Description 03/25/2024 Lab Requisition [facility] Lab [address] [place] [address] Cecilio Bautista PA [address] [place] [address] Acute and chronic respiratory failure with hypoxia; [...] Cells (03/26/2024 9:24 AM EDT) Product Code [id number] [facility] Unit Number [id number] [facility] Unit ABO O [facility] Unit RH POS [facility] Crossmatch Compatible [facility] Dispense Status Presumed Transfuse [facility] Blood Expiration Date [facility] Blood Type Barcode 5100 [facility] Dispensed Volume 291 ML [facility] Product Code [id number] [facility] Unit Number [id number] [facility] Unit ABO O [facility] Unit RH POS [facility] Crossmatch Compatible [facility] Dispense Status Presumed Transfuse [facility] Blood Expiration Date [facility] Blood Type Barcode 5100 [facility] Dispensed Volume 377 ML [facility] 03/26/2024 9:24 AM EDT 03/25/2024 11:34 AM EDT us Cecilio [facility] BLOOD BANK PRODUCT ORDERABLE S Final Result [facility] [address] [place] [address], * (ABNORMAL) Respiratory Culture w/Gram Stain (03/25/2024 5:50 AM EDT) Respiratory Culture Few Methicillin resistant Staphylococcus aureus (MRSA)(A) MINIMUM INHIBITORY CONCENTRATION ([place]) 03/28/2024 8:28 AM EDT [facility] Respiratory Culture Few Debora krusei(A) MINIMUM INHIBITORY CONCENTRATION ([place]) 03/28/2024 8:28 AM EDT [facility] Gram Stain Result <10 per LPF Epithelial Cells 03/28/2024 8:28 AM EDT [facility] Gram Stain Result >25 per LPF White Blood Cells Seen 03/28/2024 8:28 AM EDT [facility] Gram Stain Result Few Gram Positive Bacilli 03/28/2024 8:28 AM EDT [facility] Gram Stain Result Rare Gram Positive Cocci 03/28/2024 8:28 AM EDT [facility] Sputum Sputum / Unknown Non-Blood Collection / Unknown 03/25/2024 5:50 AM EDT 03/25/2024 5:19 PM EDT Narrative [facility] - 03/28/2024 8:28 AM EDT [...] MICROBIOLOGY - GENERAL O RDERABLES Final Result [facility] [address] [place] [address], * (ABNORMAL) CBC Auto Differential (03/25/2024 5:50 AM EDT) WBC 8.5 4.8 - 10.8 10*3/uL 03/25/2024 5:56 PM EDT [facility] RBC 2.47(L) 4.70 - 6.10 10*6/uL 03/25/2024 5:56 PM EDT [facility] Hemoglobin 6.9(LL) 13.7 - 16.5 g/dL 03/25/2024 5:56 PM EDT [facility] Hematocrit 21.8(L) 40.5 - 48.5 % 03/25/2024 5:56 PM EDT [facility] MCV 88.3 80.0 - 94.0 fL 03/25/2024 5:56 PM EDT [facility] MCH 27.9 26.0 - 34.0 pg 03/25/2024 5:56 PM EDT [facility] MCHC 31.7 31.0 - 36.0 g/dL 03/25/2024 5:56 PM EDT [facility] RDW 15.6(H) 12.0 - 15.0 % 03/25/2024 5:56 PM EDT [facility] RDW Standard Deviation 50.4(H) 35.1 - 43.9 fL 03/25/2024 5:56 PM EDT [facility] Platelets 202 140 - 440 10*3/uL 03/25/2024 5:56 PM EDT [facility] MPV 10.0 9.4 - 12.4 fL 03/25/2024 5:56 PM EDT [facility] Neutrophil % 67.2 50.0 - 75.0 % 03/25/2024 5:56 PM EDT [facility] Immature Grans % 0.8 0.0 - 0.9 % 03/25/2024 5:56 PM EDT [facility] Lymphocyte % 14.3(L) 20.0 - 44.0 % 03/25/2024 5:56 PM EDT [facility] Monocyte % 12.9 0.0 - 14.0 % 03/25/2024 5:56 PM EDT [facility] Eosinophil % 4.3 0.0 - 5.0 % 03/25/2024 5:56 PM EDT [facility] Basophil % 0.5 0.0 - 2.0 % 03/25/2024 5:56 PM EDT [facility] Neutrophil # 5.69 1.80 - 7.70 10*3/uL 03/25/2024 5:56 PM EDT [facility] Immature Grans # 0.07(H) 0.00 - 0.03 10*3/uL 03/25/2024 5:56 PM EDT [facility] Lymphocyte # 1.20 1.00 - 4.75 10*3/uL 03/25/2024 5:56 PM EDT [facility] Monocyte # 1.10 0.00 - 6.00 10*3/uL 03/25/2024 5:56 PM EDT [facility] Eosinophil # 0.40 0.00 - 0.80 10*3/uL 03/25/2024 5:56 PM EDT [facility] Basophil # <0.03 0.00 - 0.20 10*3/uL 03/25/2024 5:56 PM EDT [facility] nRBC % 0.0 0 - 0 /100 WBCs 03/25/2024 5:56 PM EDT [facility] nRBC # <0.01 0.00 - 0.13 10*3/uL 03/25/2024 5:56 PM EDT [facility] Blood Structure of peripheral vein / Unknown Venipuncture / Unknown 03/25/2024 5:50 AM EDT 03/25/2024 5:19 PM EDT us Cecilio HZU LAB BLOOD ORDERABLES Final R esult Performing Organization Address City/State/[facility] Co de Phone Number [facility] [address] [place] [address], * Type and Screen (03/25/2024 5:50 AM EDT) ABO Blood Type O 03/25/2024 12:36 PM EDT [facility] RH Type Positive 03/25/2024 12:36 PM EDT [facility] Expiration Date/Time 2024-03-28 23:59 03/25/2024 12:36 PM EDT [facility] Antibody Screen Negative 03/25/2024 12:36 PM EDT [facility] Blood Structure of peripheral vein / Unknown Venipuncture / Unknown 03/25/2024 5:50 AM EDT 03/25/2024 11:34 AM EDT us Cecilio [facility] LAB BLOOD BANK TEST ORDERABL ES Edited Result - Final [facility] [address] [place] [address], [place] * (ABNORMAL) CBC Auto Differential (03/25/2024 5:50 AM EDT) WBC 8.3 4.8 - 10.8 10*3/uL 03/25/2024 1:27 PM EDT [facility] RBC 2.35(L) 4.70 - 6.10 10*6/uL 03/25/2024 1:27 PM EDT [facility] Hemoglobin 6.6(LL) 13.7 - 16.5 g/dL 03/25/2024 1:27 PM EDT [facility] Hematocrit 21.0(L) 40.5 - 48.5 % 03/25/2024 1:27 PM EDT [facility] MCV 89.4 80.0 - 94.0 fL 03/25/2024 1:27 PM EDT [facility] MCH 28.1 26.0 - 34.0 pg 03/25/2024 1:27 PM EDT [facility] MCHC 31.4 31.0 - 36.0 g/dL 03/25/2024 1:27 PM EDT [facility] RDW 16.1(H) 12.0 - 15.0 % 03/25/2024 1:27 PM EDT [facility] RDW Standard Deviation 51.3(H) 35.1 - 43.9 fL 03/25/2024 1:27 PM EDT [facility] Platelets 174 140 - 440 10*3/uL 03/25/2024 1:27 PM EDT [facility] MPV 10.9 9.4 - 12.4 fL 03/25/2024 1:27 PM EDT [facility] Neutrophil % 63.1 50.0 - 75.0 % 03/25/2024 1:27 PM EDT [facility] Immature Grans % 0.4 0.0 - 0.9 % 03/25/2024 1:27 PM EDT [facility] Lymphocyte % 17.4(L) 20.0 - 44.0 % 03/25/2024 1:27 PM EDT [facility] Monocyte % 13.8 0.0 - 14.0 % 03/25/2024 1:27 PM EDT [facility] Eosinophil % 4.8 0.0 - 5.0 % 03/25/2024 1:27 PM EDT [facility] Basophil % 0.5 0.0 - 2.0 % 03/25/2024 1:27 PM EDT [facility] Neutrophil # 5.23 1.80 - 7.70 10*3/uL 03/25/2024 1:27 PM EDT [facility] Immature Grans # 0.03 0.00 - 0.03 10*3/uL 03/25/2024 1:27 PM EDT [facility] Lymphocyte # 1.40 1.00 - 4.75 10*3/uL 03/25/2024 1:27 PM EDT [facility] Monocyte # 1.10 0.00 - 6.00 10*3/uL 03/25/2024 1:27 PM EDT [facility] Eosinophil # 0.40 0.00 - 0.80 10*3/uL 03/25/2024 1:27 PM EDT [facility] Basophil # <0.03 0.00 - 0.20 10*3/uL 03/25/2024 1:27 PM EDT [facility] nRBC % 0.0 0 - 0 /100 WBCs 03/25/2024 1:27 PM EDT [facility] nRBC # <0.01 0.00 - 0.13 10*3/uL 03/25/2024 1:27 PM EDT [facility] Blood Structure of peripheral vein / Unknown Venipuncture / Unknown 03/25/2024 5:50 AM EDT 03/25/2024 11:34 AM EDT Cecilio Z[facility] LAB BLOOD ORDERABLES Final R esult Performing Organization Address [facility]/ZIP Co de Phone Number [facility] [address] [address], [place] [phone] * Ammonia (03/25/2024 5:50 AM EDT) Ammonia 46 16 - 60 umol/L 03/25/2024 12:29 PM EDT [facility] Blood Structure of peripheral vein / Unknown Venipuncture / Unknown 03/25/2024 5:50 AM EDT 03/25/2024 11:34 AM EDT Cecilio ZHU LAB BLOOD ORDERABLES Final R esult Performing Organization Address [facility] Co de Phone Number [facility] [address] [address], [place] [phone] * (ABNORMAL) Comprehensive Metabolic Panel (03/25/2024 5:50 AM EDT) NA 139 136 - 145 mmol/L 03/25/2024 12:40 PM EDT [facility] K 4.5 3.5 - 5.1 mmol/L 03/25/2024 12:40 PM EDT [facility] Cl 100 98 - 109 mmol/L 03/25/2024 12:40 PM EDT [facility] CO2 29 23 - 32 mmol/L 03/25/2024 12:40 PM EDT [facility] Anion Gap 15 >=0 03/25/2024 12:40 PM EDT [facility] Glucose 101(H) 60 - 99 mg/dL 03/25/2024 12:40 PM EDT [facility] Creatinine 0.95 0.50 - 1.12 mg/dL 03/25/2024 12:40 PM EDT [facility] Calcium 8.8 8.4 - 10.4 mg/dL 03/25/2024 12:40 PM EDT [facility] Total Protein 5.9(L) 6.6 - 8.7 g/dL 03/25/2024 12:40 PM EDT [facility] Albumin 2.8(L) 3.5 - 5.0 g/dL 03/25/2024 12:40 PM EDT [facility] Bilirubin, Total 0.5 0.2 - 1.2 mg/dL 03/25/2024 12:40 PM EDT [facility] Alkaline Phosphatase 75 40 - 129 U/L 03/25/2024 12:40 PM EDT [facility] AST 34 0 - 40 U/L 03/25/2024 12:40 PM EDT [facility] ALT 17 <=41 U/L 03/25/2024 12:40 PM T [facility] BUN 15 8 - 23 mg/dL 03/25/2024 12:40 PM T [facility] eGFR 79 >=60 mL/min/1. 73m2 03/25/2024 12:40 PM T [facility] Comment:The estimated glomer ular filtration [...] - 4.2 g/dL 03/25/2024 12:40 PM T [facility] A/G Ratio 0.9(L) 1.5 - 3.0 03/25/2024 12:40 PM T [facility] Blood Structure of peripheral vein / Unknown Venipuncture / Unknown 03/25/2024 5:50 AM EDT 03/25/2024 11:34 AM EDT us Cecilio ZHU LAB BLOOD ORDERABLES Final R esult [facility] [address] [place] [address], documented in this encounter Visit Diagnoses Diagnosis [...] documented as of this encounter Care Teams Floating Labor Gang Supervisor Relationship Specialty Start Date End Date Uday Sheehan [address] [place] [address] [place] [address] PCP - General Internal Medicine 03/27/24 documented as of this encounter
--- OUTSIDE RECORDS SUMMARY | 2025-03-08 21:08 | XMS_ITS | Encounter Summary ---
Author Organization [facility] Address [address] [place] [address] Care Team Providers Care Senior Merchandiser Name Role Phone Uday Sheehan MD Primary Care Provider [phone] Encounter Details Date Type Department Care Team (Late st Contact Info) Description 01/03/2025 Lab Requisition [facility] - Main Lab [address] [place] [address] Tabby Bledsoe MD [address] [address] Bacteremia Social History Tobacco Use Types Packs/Day [...] Associated Diagnosis Comments COMPLETE BLOOD COUNT Routine 01/06/2025 8:43 AM EDT Bacteremia COMPREHENSIVE METABOLIC PANEL Routine 01/06/2025 8:43 AM EDT Bacteremia documented in this encounter Results * (ABNORMAL) Comprehensive metabolic panel (01/06/2025 8:43 AM EDT) Sodium 143 133 - 145 mmol/L LAB CHEMISTRY METHOD 01/06/2025 11:48 AM EDT [facility] Potassium 4.2 3.5 - 5.5 mmol/L LAB CHEMISTRY METHOD 01/06/2025 11:48 AM [facility] Chloride 107 96 - 110 mmol/L LAB CHEMISTRY METHOD 01/06/2025 11:48 AM [facility] CO2 27 21 - 32 mmol/L LAB CHEMISTRY METHOD 01/06/2025 11:48 AM [facility] Anion Gap 9 3 - 11 LAB CHEMISTRY METHOD 01/06/2025 11:48 AM [facility] Glucose 139(H) 70 - 100 mg/dL LAB CHEMISTRY METHOD 01/06/2025 11:48 AM [facility] BUN 52(H) 5 - 25 mg/dL LAB CHEMISTRY METHOD 01/06/2025 11:48 AM [facility] Creatinine 1.48(H) 0.70 - 1.30 mg/dL LAB CHEMISTRY METHOD 01/06/2025 11:48 AM [facility] eGFR 46(L) >=60 mL/min/1. 73m2 LAB CHEMISTRY METHOD 01/06/2025 11:48 AM [facility] Comment:Calculation based on the Chronic Kidney Disease Epidemiology Collaboration (CKD-EPI) equation refit without adjustment for race. BUN/Creatinine Ratio 35.1 LAB CHEMISTRY METHOD 01/06/2025 11:48 AM [facility] Calcium 8.1(L) 8.5 - 10.5 mg/dL LAB CHEMISTRY METHOD 01/06/2025 11:48 AM [facility] AST (SGOT) 34 10 - 42 unit/L LAB CHEMISTRY METHOD 01/06/2025 11:48 AM [facility] ALT (SGPT) 38 10 - 60 unit/L LAB CHEMISTRY METHOD 01/06/2025 11:48 AM [facility] Alkaline Phosphatase 121 42 - 121 unit/L LAB CHEMISTRY METHOD 01/06/2025 11:48 AM [facility] Total Protein 6.1 6.0 - 8.0 g/dL LAB CHEMISTRY METHOD 01/06/2025 11:48 AM EDT [facility] Albumin 1.6(L) 3.2 - 5.0 g/dL LAB CHEMISTRY METHOD 01/06/2025 11:48 AM EDT [facility] Total Bilirubin 0.3 0.0 - 1.4 mg/dL LAB CHEMISTRY METHOD 01/06/2025 11:48 AM EDT [facility] Blood Venous blood specimen / Unknown Venipuncture / Unknown 01/06/2025 8:43 AM EDT 01/06/2025 10:10 AM EDT us Tabby Bledsoe MD LAB BLOOD ORDERABLES Fin al Result [facility] [address] [place] [address], * (ABNORMAL) Complete blood count (01/06/2025 8:43 AM EDT) WBC 6.2 4.8 - 10.8 K/mcL LAB HEMETOLOGY METHOD 01/06/2025 11:10 AM EDT [facility] RBC 2.80(L) 4.50 - 5.50 M/mcL LAB HEMETOLOGY METHOD 01/06/2025 11:10 AM [facility] Hemoglobin 7.4(L) 13.5 - 17.5 g/dL LAB HEMETOLOGY METHOD 01/06/2025 11:10 AM EDT [facility] Hematocrit 26.2(L) 42.0 - 54.0 % LAB HEMETOLOGY METHOD 01/06/2025 11:10 AM EDT [facility] MCV 94.2 79.0 - 98.0 FL LAB HEMETOLOGY [facility] MCH 26.6(L) 27.0 - 32.0 pcg LAB HEMETOLOGY METHOD 01/06/2025 11:10 AM EDT [facility] MCHC 28.2(L) 32.0 - 37.0 g/dL LAB HEMETOLOGY METHOD 01/06/2025 11:10 AM EDT [facility] RDW 18.4(H) 11.0 - 15.0 % LAB HEMETOLOGY METHOD 01/06/2025 11:10 AM EDT [facility] Platelets 239 130 - 400 K/mcL LAB HEMETOLOGY METHOD 01/06/2025 11:10 AM EDT [facility] MPV 9.7 7.0 - 11.0 FL LAB HEMETOLOGY METHOD 01/06/2025 11:10 AM EDT [facility] NRBC 0.0 <1.0 % LAB HEMETOLOGY METHOD 01/06/2025 11:10 AM EDT [facility] NRBC Absolute 0.00 <0.10 K/mcL LAB HEMETOLOGY METHOD 01/06/2025 11:10 AM T [facility] Blood Venous blood specimen / Unknown Venipuncture / Unknown 01/06/2025 8:43 AM EDT 01/06/2025 10:10 AM EDT us Tabby Bledsoe MD LAB BLOOD ORDERABLES Fin al Result [facility] [address] [place] [address], documented in this encounter Visit Diagnoses Diagnosis Bacteremia documented in this encounter Additional Health Concerns Infection Onset Date Last Indicated Resolved Time ESBL 06/22/2024 06/22/2024 documented as of this encounter Care Teams Senior Merchandiser Relationship Specialty Start Date End Date Uday Sheehan MD [address] [place] [address] Dr Thompson [place] PCP - General Senior Shipping Clerk 12/19/16 documented as of this encounter
--- OUTSIDE RECORDS SUMMARY | 2025-03-08 21:08 | XMS_ITS | Encounter Summary ---
Author Organization [facility] Address [address] [place] [address] Care Team Providers Care Test Administrator Name Role Phone Uday Sheehan MD Primary Care Provider [phone] Encounter Details Date Type Department Care Team (Late st Contact Info) Description 10/03/2024 Lab Requisition [facility] - Main Lab [address] [place] [address] Tabby Bledsoe MD [address] [address] Anemia, unspecified Social History Tobacco Use Types [...] LAB CHEMISTRY METHOD 10/03/2024 11:29 AM EDT [facility] ([facility] Potassium 4.9 3.5 - 5.5 mmol/L LAB CHEMISTRY METHOD 10/03/2024 11:29 AM [facility] LAB Chloride 98 96 - 110 mmol/L LAB CHEMISTRY METHOD 10/03/2024 11:29 AM [facility] LAB CO2 31 21 - 32 mmol/L LAB CHEMISTRY METHOD 10/03/2024 11:29 AM [facility] LAB Anion Gap 6 3 - 11 LAB CHEMISTRY METHOD 10/03/2024 11:29 AM [facility] LAB Glucose 87 70 - 100 mg/dL LAB CHEMISTRY METHOD 10/03/2024 11:29 AM [facility] LAB BUN 36(H) 5 - 25 mg/dL LAB CHEMISTRY METHOD 10/03/2024 11:29 AM [facility] LAB Creatinine 1.31(H) 0.70 - 1.30 mg/dL LAB CHEMISTRY METHOD 10/03/2024 11:29 AM [facility] LAB eGFR 54(L) >=60 mL/min/1. 73m2 LAB CHEMISTRY METHOD 10/03/2024 11:29 AM [facility] LAB Comment:Calculation based on the Chronic Kidney Disease Epidemiology Collaboration (CKD-EPI) equation refit without adjustment for race. BUN/Creatinine Ratio 27.5 LAB CHEMISTRY METHOD 10/03/2024 11:29 AM [facility] LAB Calcium 8.1(L) 8.5 - 10.5 mg/dL LAB CHEMISTRY METHOD 10/03/2024 11:29 AM [facility] LAB Blood Venous blood specimen / Unknown Venipuncture / Unknown 10/03/2024 5:24 AM EDT 10/03/2024 10:03 AM EDT us Tabby Bledsoe MD LAB BLOOD ORDERABLES Fin al Result [facility] LAB [address] [place] [address], * (ABNORMAL) Complete blood count (10/03/2024 5:24 AM EDT) [facility] WBC 9.2 4.8 - 10.8 K/mcL LAB HEMETOLOGY METHOD 10/03/2024 10:27 AM [facility] LAB RBC 2.40(L) 4.50 - 5.50 M/mcL LAB HEMETOLOGY METHOD 10/03/2024 10:27 AM [facility] LAB Hemoglobin 6.6(L) 13.5 - 17.5 g/dL LAB HEMETOLOGY METHOD 10/03/2024 10:27 AM [facility] LAB Hematocrit 22.2(L) 42.0 - 54.0 % LAB HEMETOLOGY METHOD 10/03/2024 10:27 AM [facility] LAB MCV 92.1 79.0 - 98.0 FL LAB HEMETOLOGY METHOD 10/03/2024 10:27 AM [facility] LAB MCH 27.4 27.0 - 32.0 pcg LAB HEMETOLOGY METHOD 10/03/2024 10:27 AM [facility] LAB MCHC 29.7(L) 32.0 - 37.0 g/dL LAB HEMETOLOGY METHOD 10/03/2024 10:27 AM [facility] LAB RDW 17.0(H) 11.0 - 15.0 % LAB HEMETOLOGY METHOD 10/03/2024 10:27 AM [facility] LAB Platelets 273 130 - 400 K/mcL LAB HEMETOLOGY METHOD 10/03/2024 10:27 AM [facility] LAB MPV 9.1 7.0 - 11.0 FL LAB HEMETOLOGY METHOD 10/03/2024 10:27 AM [facility] LAB NRBC 0.0 <1.0 % LAB HEMETOLOGY METHOD 10/03/2024 10:27 AM [facility] LAB NRBC Absolute 0.00 <0.10 K/mcL LAB HEMETOLOGY METHOD 10/03/2024 10:27 AM EDT [facility] LAB Blood Venous blood specimen / Unknown Venipuncture / Unknown 10/03/2024 5:24 AM EDT 10/03/2024 10:03 AM EDT us Tabby Bledsoe MD LAB BLOOD ORDERABLES Fin al Result [facility] ([facility] [address] [place] [address], documented in this encounter Visit Diagnoses Diagnosis Anemia, unspecified documented in this encounter Additional Health Concerns Infection Onset Date Last Indicated Resolved Time ESBL 06/22/2024 06/22/2024 documented as of this encounter Care Teams Test Administrator Relationship Specialty Start Date End Date Uday Sheehan MD [address] [place] [address] Dr Donna [place] PCP - General Retaining Room Cutter 12/19/16 documented as of this encounter
--- OUTSIDE RECORDS SUMMARY | 2025-03-08 21:08 | XMS_ITS | Encounter Summary ---
Author Organization [facility] Address [address] [place] [address] Care Team Providers Care Sign Painter Name Role Phone Uday Sheehan Primary Care Provider [phone] Encounter Details Date Type Department Care Team (Late st Contact Info) Description 05/18/2024 Lab Requisition [facility] Lab [address] [place] [address] No diagnosis Social History Tobacco Use Types [...] documented as of this encounter Care Teams Sign Painter Relationship Specialty Start Date End Date Uday Sheehan [address] [place] [address] [place] [address] PCP - General Internal Medicine 03/27/24 documented as of this encounter
--- OUTSIDE RECORDS SUMMARY | 2025-03-08 21:08 | XMS_ITS | Encounter Summary ---
Author Organization [facility] Address [address] [place] [address] Care Team Providers Care Treating And Pumping Supervisor Name Role Phone Uday Sheehan Primary Care Provider [phone] Encounter Details Date Type Department Care Team (Late st Contact Info) Description 04/29/2024 Lab Requisition [facility] Lab [address] [place] [address] Lidia Barry, CB [address] [place] [address] Acute and chronic respiratory failure with hypoxia; [...] - 10.8 10*3/uL 04/29/2024 1:00 PM EDT [facility] RBC 2.81(L) 4.70 - 6.10 10*6/uL 04/29/2024 1:00 PM EDT [facility] Hemoglobin 7.7(L) 13.7 - 16.5 g/dL 04/29/2024 1:00 PM EDT [facility] Hematocrit 24.5(L) 40.5 - 48.5 % 04/29/2024 1:00 PM EDT [facility] MCV 87.2 80.0 - 94.0 fL 04/29/2024 1:00 PM EDT [facility] MCH 27.4 26.0 - 34.0 pg 04/29/2024 1:00 PM EDT [facility] MCHC 31.4 31.0 - 36.0 g/dL 04/29/2024 1:00 PM EDT [facility] RDW 15.7(H) 12.0 - 15.0 % 04/29/2024 1:00 PM EDT [facility] RDW Standard Deviation 50.7(H) 35.1 - 43.9 fL 04/29/2024 1:00 PM EDT [facility] Platelets 141 140 - 440 10*3/uL 04/29/2024 1:00 PM EDT [facility] MPV 11.0 9.4 - 12.4 fL 04/29/2024 1:00 PM EDT [facility] Neutrophil % 51.9 50.0 - 75.0 % 04/29/2024 1:00 PM EDT [facility] Immature Grans % 0.2 0.0 - 0.9 % 04/29/2024 1:00 PM EDT [facility] Lymphocyte % 26.7 20.0 - 44.0 % 04/29/2024 1:00 PM EDT [facility] Monocyte % 14.3(H) 0.0 - 14.0 % 04/29/2024 1:00 PM EDT [facility] Eosinophil % 6.3(H) 0.0 - 5.0 % 04/29/2024 1:00 PM EDT [facility] Basophil % 0.6 0.0 - 2.0 % 04/29/2024 1:00 PM EDT [facility] Neutrophil # 2.47 1.80 - 7.70 10*3/uL 04/29/2024 1:00 PM EDT [facility] Immature Grans # <0.03 0.00 - 0.03 10*3/uL 04/29/2024 1:00 PM EDT [facility] Lymphocyte # 1.30 1.00 - 4.75 10*3/uL 04/29/2024 1:00 PM EDT [facility] Monocyte # 0.70 0.00 - 6.00 10*3/uL 04/29/2024 1:00 PM EDT [facility] Eosinophil # 0.30 0.00 - 0.80 10*3/uL 04/29/2024 1:00 PM EDT [facility] Basophil # <0.03 0.00 - 0.20 10*3/uL 04/29/2024 1:00 PM EDT [facility] nRBC % 0.0 0 - 0 /100 WBCs 04/29/2024 1:00 PM EDT [facility] nRBC # <0.01 0.00 - 0.13 10*3/uL 04/29/2024 1:00 PM EDT [facility] Blood Structure of peripheral vein / Unknown Venipuncture / Unknown 04/29/2024 12:28 PM EDT 04/29/2024 12:29 PM EDT us Lidia Barry COMPUTER PROGRAMMER LAB BLOOD ORDERABLES Final R esult [facility] [address] [place] [address], * (ABNORMAL) Comprehensive Metabolic Panel (04/29/2024 12:28 PM EDT) NA 140 136 - 145 mmol/L 04/29/2024 1:18 PM EDT [facility] K 3.8 3.5 - 5.1 mmol/L 04/29/2024 1:18 PM EDT [facility] Cl 99 98 - 109 mmol/L 04/29/2024 1:18 PM EDT [facility] CO2 32 22 - 32 mmol/L 04/29/2024 1:18 PM EDT [facility] Anion Gap 13 >=0 04/29/2024 1:18 PM EDT [facility] Glucose 92 60 - 99 mg/dL 04/29/2024 1:18 PM EDT [facility] Creatinine 1.44(H) 0.50 - 1.12 mg/dL 04/29/2024 1:18 PM EDT [facility] Calcium 9.5 8.4 - 10.4 mg/dL 04/29/2024 1:18 PM EDT [facility] Total Protein 6.1(L) 6.6 - 8.7 g/dL 04/29/2024 1:18 PM EDT [facility] Albumin 2.9(L) 3.5 - 5.0 g/dL 04/29/2024 1:18 PM EDT [facility] Bilirubin, Total 0.3 0.2 - 1.2 mg/dL 04/29/2024 1:18 PM EDT [facility] Alkaline Phosphatase 92 40 - 129 U/L 04/29/2024 1:18 PM EDT [facility] AST 43(H) 0 - 40 U/L 04/29/2024 1:18 PM EDT [facility] ALT 43(H) <=41 U/L 04/29/2024 1:18 PM EDT [facility] BUN 40(H) 8 - 23 mg/dL 04/29/2024 1:18 PM EDT [facility] eGFR 48(L) >=60 mL/min/1. 73m2 04/29/2024 1:18 PM EDT [facility] Comment:The estimated glomer ular filtration [...] - 4.2 g/dL 04/29/2024 1:18 PM EDT [facility] A/G Ratio 0.9(L) 1.5 - 3.0 04/29/2024 1:18 PM EDT [facility] Blood Structure of peripheral vein / Unknown Venipuncture / Unknown 04/29/2024 12:28 PM EDT 04/29/2024 12:29 PM EDT [facility] LAB BLOOD ORDERABLES Final R esult [facility] [address] [place] [address] [address] [place] [address], documented in this encounter Visit Diagnoses Diagnosis Acute and chronic respiratory failure with hypoxia (HCC) No diagnosis documented in this encounter Additional Health Concerns Infection Onset Date Last Indicated Resolved Time 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
--- OUTSIDE RECORDS SUMMARY | 2025-03-08 21:08 | XMS_ITS | Encounter Summary ---
Author Organization [facility] Address [address] [place] [address] Care Team Providers Care Sign Wirer Name Role Phone Uday Sheehan MD Primary Care Provider [phone] Encounter Details Date Type Department Care Team (Late st Contact Info) Description 11/07/2024 Lab Requisition [facility] Lab [address] [place] [id number] Erica Charles NP [address] [place] [phone] Anemia, unspecified Social History Tobacco Use Types [...] AM EDT) WBC 6.5 4.8 - 10.8 K/[facility] LAB HEMETOLOGY METHOD 11/07/2024 7:[address] [facility] ([facility] RBC 2.50(L) 4.50 - 5.50 M/mcL LAB HEMETOLOGY METHOD 11/07/2024 7:19 AM [facility] LAB Hemoglobin 6.7(L) 13.5 - 17.5 g/dL LAB HEMETOLOGY METHOD 11/07/2024 7:19 AM [facility] LAB Hematocrit 23.3(L) 42.0 - 54.0 % LAB HEMETOLOGY METHOD 11/07/2024 7:19 AM [facility] LAB MCV 94.3 79.0 - 98.0 FL LAB HEMETOLOGY METHOD 11/07/2024 7:19 AM [facility] LAB MCH 27.1 27.0 - 32.0 pcg LAB HEMETOLOGY METHOD 11/07/2024 7:19 AM [facility] LAB MCHC 28.8(L) 32.0 - 37.0 g/dL LAB HEMETOLOGY METHOD 11/07/2024 7:19 AM [facility] LAB RDW 17.5(H) 11.0 - 15.0 % LAB HEMETOLOGY METHOD 11/07/2024 7:19 AM [facility] LAB Platelets 322 130 - 400 K/mcL LAB HEMETOLOGY METHOD 11/07/2024 7:19 AM [facility] LAB MPV 9.6 7.0 - 11.0 FL LAB HEMETOLOGY METHOD 11/07/2024 7:19 AM [facility] LAB NRBC 0.0 <1.0 % LAB HEMETOLOGY METHOD 11/07/2024 7:19 AM [facility] LAB NRBC Absolute 0.00 <0.10 K/mcL LAB HEMETOLOGY METHOD 11/07/2024 7:19 AM [facility] Neutrophils Relative 61.3 % LAB HEMETOLOGY METHOD 11/07/2024 7:19 AM [facility] Lymphocytes Relative 20.3 % LAB HEMETOLOGY METHOD 11/07/2024 7:19 AM [facility] Monocytes Relative 13.3 % LAB HEMETOLOGY METHOD 11/07/2024 7:19 AM [facility] Eosinophils Relative 3.7 % LAB HEMETOLOGY METHOD 11/07/2024 7:19 AM [facility] Basophils Relative 0.3 % LAB HEMETOLOGY METHOD 11/07/2024 7:19 AM [facility] Immature Granulocytes Relative 1.1 % LAB HEMETOLOGY METHOD 11/07/2024 7:19 AM [facility] Neutrophils Absolute 4.01 1.50 - 7.00 K/mcL LAB HEMETOLOGY METHOD 11/07/2024 7:19 AM [facility] Lymphocytes Absolute 1.33 1.00 - 5.00 K/mcL LAB HEMETOLOGY METHOD 11/07/2024 7:19 AM [facility] Monocytes Absolute 0.87 0.20 - 1.00 K/mcL LAB HEMETOLOGY METHOD 11/07/2024 7:19 AM [facility] Eosinophils Absolute 0.24 0.00 - 0.50 K/mcL LAB HEMETOLOGY METHOD 11/07/2024 7:19 AM [facility] Basophils Absolute 0.02 0.00 - 0.20 K/mcL LAB HEMETOLOGY METHOD 11/07/2024 7:19 AM [facility] Immature Granulocytes Absolute 0.07(H) 0.00 - 0.03 K/mcL LAB HEMETOLOGY METHOD 11/07/2024 7:19 AM [facility] Blood Venous blood specimen / Unknown Venipuncture / Unknown 11/07/2024 5:17 AM EDT 11/07/2024 6:39 AM EDT Erica Charles NP LAB BLOOD ORDERABLES Final Resul t [facility] [address] [place] [address], documented in this encounter Visit Diagnoses Diagnosis Anemia, unspecified documented in this encounter Additional Health Concerns Infection Onset Date Last Indicated Resolved Time ESBL 06/22/2024 06/22/2024 documented as of this encounter Care Teams Sign Wirer Relationship Specialty Start Date End Date Uday Sheehan MD [address] [place] [address] Dr Mast [place] PCP - General Director Of Claims 12/19/16 documented as of this encounter
--- OUTSIDE RECORDS SUMMARY | 2025-03-08 21:08 | XMS_ITS | Encounter Summary ---
Author Organization [facility] Address [address] [place] [address] Care Team Providers Care Yarn Texture Machine Operator Name Role Phone Uday Sheehan MD Primary Care Provider [phone] Encounter Details Date Type Department Care Team (Late st Contact Info) Description 09/28/2024 Lab Requisition [facility] - Main Lab [address] [place] [address] Tabby Bledsoe MD [address] [address] Bacteremia Social History Tobacco Use Types Packs/Day [...] LAB CHEMISTRY METHOD 09/30/2024 11:57 AM EDT [facility] Potassium 4.7 3.5 - 5.5 mmol/L LAB CHEMISTRY METHOD 09/30/2024 11:[address] [facility] Chloride 98 96 - 110 mmol/L LAB CHEMISTRY METHOD 09/30/2024 11:[address] [facility] CO2 31 21 - 32 mmol/L LAB CHEMISTRY METHOD 09/30/2024 11:[address] [facility] LAB Anion Gap 6 3 - 11 LAB CHEMISTRY METHOD 09/30/2024 11:[address] [facility] Glucose 132(H) 70 - 100 mg/dL LAB CHEMISTRY METHOD 09/30/2024 11:[address] [facility] BUN 30(H) 5 - 25 mg/dL LAB CHEMISTRY METHOD 09/30/2024 11:[address] [facility] Creatinine 1.22 0.70 - 1.30 mg/dL LAB CHEMISTRY METHOD 09/30/2024 11:[address] [facility] LAB eGFR 58(L) >=60 mL/min/1. 73m2 LAB CHEMISTRY METHOD 09/30/2024 11:[address] [facility] LAB Comment:Calculation based on the Chronic Kidney Disease Epidemiology Collaboration (CKD-EPI) equation refit without adjustment for race. BUN/Creatinine Ratio 24.6 LAB CHEMISTRY METHOD 09/30/2024 11:[address] [facility] Calcium 8.1(L) 8.5 - 10.5 mg/dL LAB CHEMISTRY METHOD 09/30/2024 11:[address] [facility] AST (SGOT) 45(H) 10 - 42 unit/L LAB CHEMISTRY METHOD 09/30/2024 11:[address] [facility] ALT (SGPT) 45 10 - 60 unit/L LAB CHEMISTRY METHOD 09/30/2024 11:[address] [facility] Alkaline Phosphatase 101 42 - 121 unit/L LAB CHEMISTRY METHOD 09/30/2024 11:[address] [facility] Total Protein 5.5(L) 6.0 - 8.0 g/dL LAB CHEMISTRY METHOD 09/30/2024 11:57 AM T [facility] Albumin 1.4(L) 3.2 - 5.0 g/dL LAB CHEMISTRY METHOD 09/30/2024 11:57 AM EDT [facility] Total Bilirubin 0.3 0.0 - 1.4 mg/dL LAB CHEMISTRY METHOD 09/30/2024 11:57 AM EDT [facility] Blood Venous blood specimen / Unknown Venipuncture / Unknown 09/30/2024 8:29 AM EDT 09/30/2024 10:52 AM EDT us Tabby Bledsoe MD LAB BLOOD ORDERABLES Fin al Result [facility] [address] [place] [address], * (ABNORMAL) Complete blood count (09/30/2024 8:29 AM EDT) WBC 6.7 4.8 - 10.8 K/mcL LAB HEMETOLOGY METHOD 09/30/2024 11:[address] [facility] RBC 2.40(L) 4.50 - 5.50 M/mcL LAB HEMETOLOGY METHOD 09/30/2024 11:[address] [facility] Hemoglobin 6.6(L) 13.5 - 17.5 g/dL LAB HEMETOLOGY METHOD 09/30/2024 11:44 AM T [facility] Hematocrit 22.2(L) 42.0 - 54.0 % LAB HEMETOLOGY METHOD 09/30/2024 11:44 AM T [facility] MCV 93.7 79.0 - 98.0 FL LAB HEMETOLOGY METHOD 09/30/2024 11:[address] [facility] MCH 27.8 27.0 - 32.0 pcg LAB HEMETOLOGY METHOD 09/30/2024 11:44 AM EDT [facility] MCHC 29.7(L) 32.0 - 37.0 g/dL LAB HEMETOLOGY METHOD 09/30/2024 11:44 AM EDT [facility] RDW 16.7(H) 11.0 - 15.0 % LAB HEMETOLOGY METHOD 09/30/2024 11:44 AM EDT [facility] Platelets 271 130 - 400 K/mcL LAB HEMETOLOGY METHOD 09/30/2024 11:44 AM EDT [facility] MPV 9.4 7.0 - 11.0 FL LAB HEMETOLOGY METHOD 09/30/2024 11:44 AM EDT [facility] NRBC 0.0 <1.0 % LAB HEMETOLOGY METHOD 09/30/2024 11:44 AM T [facility] NRBC Absolute 0.00 <0.10 K/mcL LAB HEMETOLOGY METHOD 09/30/2024 11:44 AM T [facility] Blood Venous blood specimen / Unknown Venipuncture / Unknown 09/30/2024 8:29 AM EDT 09/30/2024 10:52 AM EDT us Tabby Bledsoe MD LAB BLOOD ORDERABLES Fin al Result [facility] [address] [place] [address], documented in this encounter Visit Diagnoses Diagnosis Bacteremia documented in this encounter Additional Health Concerns Infection Onset Date Last Indicated Resolved Time ESBL 06/22/2024 06/22/2024 documented as of this encounter Care Teams Yarn Texture Machine Operator Relationship Specialty Start Date End Date Uday Sheehan MD [address] [place] [address] Dr Thompson [place] PCP - General Dishwasher Busser 12/19/16 documented as of this encounter
--- OUTSIDE RECORDS SUMMARY | 2025-03-08 21:08 | XMS_ITS | Encounter Summary ---
Author Organization [facility] Address [address] [place] [address] Care Team Providers Care Plugger Name Role Phone Uday Sheehan MD Primary Care Provider [phone] Encounter Details Date Type Department Care Team (Late st Contact Info) Description 09/25/2024 Lab Requisition [facility] - Main Lab [address] [place] [address] Tabby Bledsoe MD [address] [address] Chronic kidney disease, unspecified Social History Tobacco [...] LAB CHEMISTRY METHOD 09/25/2024 3:27 PM EDT [facility] Blood Venous blood specimen / Unknown Venipuncture / Unknown 09/25/2024 5:37 AM EDT 09/25/2024 11:49 AM EDT us Tabby Bledsoe MD LAB BLOOD ORDERABLES Fin al Result [facility] [address] [place] [address], documented in this encounter Visit Diagnoses Diagnosis Chronic kidney disease, unspecified documented in this encounter Additional Health Concerns Infection Onset Date Last Indicated Resolved Time ESBL 06/22/2024 06/22/2024 documented as of this encounter Care Teams Plugger Relationship Specialty Start Date End Date Uday Sheehan MD [address] [place] [address] Dr Donna [place] PCP - General Health Care Marketing Specialist 12/19/16 documented as of this encounter
--- OUTSIDE RECORDS SUMMARY | 2025-03-08 21:08 | XMS_ITS | Encounter Summary ---
Author Organization [facility] Address [address] [place] [address] Care Team Providers Care Blueprinting And Photocopy Supervisor Name Role Phone Uday Sheehan MD Primary Care Provider [phone] Encounter Details Date Type Department Care Team (Late st Contact Info) Description 06/03/[address] [facility] - Main Lab 299 [facility] [place] [address] Zak Zuluaga MD [address] [place] [address] Hypothyroidism, unspecified; Essential (primary) hypertension; Unspecified atrial [...] LAB CHEMISTRY METHOD 06/03/2024 1:08 PM EST [facility] Blood Venous blood specimen / Unknown Venipuncture / Unknown 06/03/2024 8:12 AM EST 06/03/2024 9:23 AM EST Zak Zuluaga MD LAB BLOOD ORDERABLES Final Resul t Performing Organization Address City/[facility]/ZIP Co de Phone Number [facility] [address] [place] [address], [place] [phone] * Free thyroxine with reflex to free triiodothyronine (06/03/2024 8:12 AM EST) Free T4 1.24 0.70 - 1.80 ng/dL LAB CHEMISTRY METHOD 06/03/2024 12:42 PM EST [facility] Blood Venous blood specimen / Unknown Venipuncture / Unknown 06/03/2024 8:12 AM EST 06/03/2024 9:23 AM EST us Zak Zuluaga MD LAB BLOOD ORDERABLES Final Resul t Performing Organization Address City/[facility]/ZIP Co de Phone Number [facility] [address] [place] [address], [place] [phone] * (ABNORMAL) Thyroid stimulating hormone with reflex to free t4 and free t3 (06/03/2024 8:12 AM EST) TSH 5.71(H) 0.40 - 4.00 mcIU/mL LAB CHEMISTRY METHOD 06/03/2024 12:17 PM [facility] Blood Venous blood specimen / Unknown Venipuncture / Unknown 06/03/2024 8:12 AM EST 06/03/2024 9:23 AM EST us Zak Zuluaga MD LAB BLOOD ORDERABLES Final Resul t [facility] [address] [place] [address], * (ABNORMAL) Comprehensive metabolic panel (06/03/2024 8:12 AM EST) Pathologist [facility] Sodium 145 133 - 145 mmol/L LAB CHEMISTRY METHOD 06/03/2024 12:11 PM [facility] Potassium 3.9 3.5 - 5.5 mmol/L LAB CHEMISTRY METHOD 06/03/2024 12:11 PM [facility] Chloride 110 96 - 110 mmol/L LAB CHEMISTRY METHOD 06/03/2024 12:11 PM [facility] CO2 28 21 - 32 mmol/L LAB CHEMISTRY METHOD 06/03/2024 12:11 PM [facility] Anion Gap 7 3 - 11 LAB CHEMISTRY METHOD 06/03/2024 12:11 PM [facility] Glucose 83 70 - 100 mg/dL LAB CHEMISTRY METHOD 06/03/2024 12:11 PM [facility] BUN 40(H) 5 - 25 mg/dL LAB CHEMISTRY METHOD 06/03/2024 12:11 PM [facility] Creatinine 2.47(H) 0.70 - 1.30 mg/dL LAB CHEMISTRY METHOD 06/03/2024 12:11 PM [facility] eGFR 25(L) >=60 mL/min/1. 73m2 LAB CHEMISTRY METHOD 06/03/2024 12:11 PM [facility] Comment:Calculation based on the Chronic Kidney Disease Epidemiology Collaboration (CKD-EPI) equation refit without adjustment for race. BUN/Creatinine Ratio 16.2 LAB CHEMISTRY METHOD 06/03/2024 12:11 PM [facility] Calcium 8.1(L) 8.5 - 10.5 mg/dL LAB CHEMISTRY METHOD 06/03/2024 12:11 PM [facility] AST (SGOT) 19 10 - 42 unit/L LAB CHEMISTRY METHOD 06/03/2024 12:11 PM [facility] ALT (SGPT) 17 10 - 60 unit/L LAB CHEMISTRY METHOD 06/03/2024 12:11 PM [facility] Alkaline Phosphatase 81 42 - 121 unit/L LAB CHEMISTRY METHOD 06/03/2024 12:11 PM [facility] Total Protein 5.4(L) 6.0 - 8.0 g/dL LAB CHEMISTRY METHOD 06/03/2024 12:11 PM [facility] Albumin 1.9(L) 3.2 - 5.0 g/dL LAB CHEMISTRY METHOD 06/03/2024 12:11 PM [facility] Total Bilirubin 0.4 0.0 - 1.4 mg/dL LAB CHEMISTRY METHOD 06/03/2024 12:11 PM [facility] Blood Venous blood specimen / Unknown Venipuncture / Unknown 06/03/2024 8:12 AM EST 06/03/2024 9:23 AM EST us Zak Zuluaga MD LAB BLOOD ORDERABLES Final Resul t [facility] [address] [place] [address], * (ABNORMAL) Complete blood count (06/03/2024 8:12 AM EST) [facility] WBC 6.6 4.8 - 10.8 K/mcL LAB HEMETOLOGY METHOD 06/03/2024 10:42 AM [facility] RBC 2.70(L) 4.50 - 5.50 M/mcL LAB HEMETOLOGY METHOD 06/03/2024 10:42 AM [facility] Hemoglobin 7.2(L) 13.5 - 17.5 g/dL LAB HEMETOLOGY METHOD 06/03/2024 10:42 AM [facility] Hematocrit 23.7(L) 42.0 - 54.0 % LAB HEMETOLOGY METHOD 06/03/2024 10:42 AM [facility] MCV 89.1 79.0 - 98.0 FL LAB HEMETOLOGY METHOD 06/03/2024 10:42 AM [facility] MCH 27.1 27.0 - 32.0 pcg LAB HEMETOLOGY METHOD 06/03/2024 10:42 AM [facility] MCHC 30.4(L) 32.0 - 37.0 g/dL LAB HEMETOLOGY METHOD 06/03/2024 10:42 AM [facility] RDW 16.7(H) 11.0 - 15.0 % LAB HEMETOLOGY METHOD 06/03/2024 10:42 AM [facility] Platelets 145 130 - 400 K/mcL LAB HEMETOLOGY METHOD 06/03/2024 10:42 AM [facility] MPV 10.4 7.0 - 11.0 FL LAB HEMETOLOGY METHOD 06/03/2024 10:42 AM [facility] NRBC 0.0 <1.0 % LAB HEMETOLOGY METHOD 06/03/2024 10:42 AM [facility] NRBC Absolute 0.00 <0.10 K/mcL LAB HEMETOLOGY METHOD 06/03/2024 10:42 AM EST [facility] Blood Venous blood specimen / Unknown Venipuncture / Unknown 06/03/2024 8:12 AM EST 06/03/2024 9:23 AM EST us Zak Zuluaga MD LAB BLOOD ORDERABLES Final Resul t [facility] [address] [place] [address], [place] [phone] documented in this encounter Visit Diagnoses Diagnosis Hypothyroidism, unspecified Essential (primary) hypertension Unspecified essential hypertension Unspecified atrial fibrillation (CMS/HCC V24, CMS/HCC V28) documented in this encounter Additional Health Concerns Infection Onset Date Last Indicated Resolved Time ESBL 06/22/2024 06/22/2024 documented as of this encounter Care Teams Blueprinting And Photocopy Supervisor Relationship Specialty Start Date End Date Uday Sheehan MD [address] [place] [address] Dr Donna [place] PCP - General Technical Sales Specialist 12/19/16 documented as of this encounter
--- OUTSIDE RECORDS SUMMARY | 2025-03-08 21:08 | XMS_ITS | Encounter Summary ---
Author Organization [facility] Address [address] [place] [address] Care Team Providers Care Snailer Name Role Phone Uday Sheehan MD Primary Care Provider [phone] Encounter Details Date Type Department Care Team (Late st Contact Info) Description 10/17/2024 Lab Requisition [facility] - Main Lab 299 [facility] [place] [address] Tabby Bledsoe MD [address] [id number] Anemia, unspecified; Chronic kidney disease, unspecified Social [...] (ABNORMAL) C-reactive protein (10/17/2024 7:07 AM EDT) [facility] C-Reactive Protein 13.90(H) <=0.50 mg/dL LAB CHEMISTRY METHOD 10/17/2024 11:48 AM EDT [facility] Blood Venous blood specimen / Unknown Venipuncture / Unknown 10/17/2024 7:07 AM EDT 10/17/2024 10:31 AM EDT Tabby Bledsoe MD LAB BLOOD ORDERABLES Fin al Result Performing Organization Address [facility]/ZIP Co de Phone Number [facility] [address] [place] [address], [place] [phone] * (ABNORMAL) Sedimentation rate (10/17/2024 7:07 AM EDT) [facility] Sed Rate 88(H) 0 - 20 mm/hr LAB HEMETOLOGY METHOD 10/17/2024 11:47 AM EDT [facility] Blood Venous blood specimen / Unknown Venipuncture / Unknown 10/17/2024 7:07 AM EDT 10/17/2024 10:31 AM EDT Tabby Bledsoe MD LAB BLOOD ORDERABLES Fin al Result Performing Organization Address [facility]/ZIP Pa de Phone Number [facility] [address] [place] [address], [place] [phone] * (ABNORMAL) Complete blood count (10/17/2024 7:07 AM EDT) [facility] WBC 7.2 4.8 - 10.8 K/mcL LAB HEMETOLOGY METHOD 10/17/2024 11:23 AM EDT [facility] RBC 2.60(L) 4.50 - 5.50 M/mcL LAB HEMETOLOGY METHOD 10/17/2024 11:23 AM EDT [facility] Hemoglobin 7.2(L) 13.5 - 17.5 g/dL LAB HEMETOLOGY METHOD 10/17/2024 11:23 AM [facility] Hematocrit 24.2(L) 42.0 - 54.0 % LAB HEMETOLOGY METHOD 10/17/2024 11:23 AM [facility] MCV 92.4 79.0 - 98.0 FL LAB HEMETOLOGY METHOD 10/17/2024 11:23 AM [facility] MCH 27.5 27.0 - 32.0 pcg LAB HEMETOLOGY METHOD 10/17/2024 11:23 AM [facility] MCHC 29.8(L) 32.0 - 37.0 g/dL LAB HEMETOLOGY METHOD 10/17/2024 11:23 AM [facility] RDW 16.8(H) 11.0 - 15.0 % LAB HEMETOLOGY METHOD 10/17/2024 11:23 AM [facility] Platelets 253 130 - 400 K/mcL LAB HEMETOLOGY METHOD 10/17/2024 11:23 AM [facility] MPV 9.5 7.0 - 11.0 FL LAB HEMETOLOGY METHOD 10/17/2024 11:23 AM [facility] NRBC 0.0 <1.0 % LAB HEMETOLOGY METHOD 10/17/2024 11:23 AM [facility] NRBC Absolute 0.00 <0.10 K/mcL LAB HEMETOLOGY METHOD 10/17/2024 11:23 AM [facility] Blood Venous blood specimen / Unknown Venipuncture / Unknown 10/17/2024 7:07 AM EDT 10/17/2024 10:31 AM EDT us Tabby Bledsoe MD LAB BLOOD ORDERABLES Fin al Result [facility] [address] [place] [address], documented in this encounter Visit Diagnoses Diagnosis Anemia, unspecified Chronic kidney disease, unspecified documented in this encounter Additional Health Concerns Infection Onset Date Last Indicated Resolved Time ESBL 06/22/2024 06/22/2024 documented as of this encounter Care Teams Snailer Relationship Specialty Start Date End Date Uday Sheehan MD [address] [place] [address] Dr AliciayoALEC riggins PCP - General Laboratory Cureman 12/19/16 documented as of this encounter
--- OUTSIDE RECORDS SUMMARY | 2025-03-08 21:08 | XMS_ITS | Encounter Summary ---
Author Organization [facility] Address [address] [place] [address] Care Team Providers Care Wood Boat Builder Supervisor Name Role Phone Uday Sheehan MD Primary Care Provider [phone] Encounter Details Date Type Department Care Team (Late st Contact Info) Description 08/18/2024 Lab Requisition [facility] - Main Lab [address] [place] [address] Tabby Bledsoe MD [address] [address] Bacteremia Social History Tobacco Use Types Packs/Day [...] LAB CHEMISTRY METHOD 08/19/2024 3:13 PM EST [facility] Potassium 4.0 3.5 - 5.5 mmol/L LAB CHEMISTRY METHOD 08/19/2024 3:13 PM [facility] Chloride 111(H) 96 - 110 mmol/L LAB CHEMISTRY METHOD 08/19/2024 3:13 PM [facility] CO2 25 21 - 32 mmol/L LAB CHEMISTRY METHOD 08/19/2024 3:13 PM [facility] Anion Gap 9 3 - 11 LAB CHEMISTRY METHOD 08/19/2024 3:13 PM [facility] Glucose 90 70 - 100 mg/dL LAB CHEMISTRY METHOD 08/19/2024 3:13 PM [facility] BUN 23 5 - 25 mg/dL LAB CHEMISTRY METHOD 08/19/2024 3:13 PM [facility] Creatinine 1.46(H) 0.70 - 1.30 mg/dL LAB CHEMISTRY METHOD 08/19/2024 3:13 PM [facility] eGFR 47(L) >=60 mL/min/1. 73m2 LAB CHEMISTRY METHOD 08/19/2024 3:13 PM [facility] Comment:Calculation based on the Chronic Kidney Disease Epidemiology Collaboration (CKD-EPI) equation refit without adjustment for race. BUN/Creatinine Ratio 15.8 LAB CHEMISTRY METHOD 08/19/2024 3:13 PM [facility] Calcium 8.3(L) 8.5 - 10.5 mg/dL LAB CHEMISTRY METHOD 08/19/2024 3:13 PM [facility] AST (SGOT) 19 10 - 42 unit/L LAB CHEMISTRY METHOD 08/19/2024 3:13 PM [facility] ALT (SGPT) 12 10 - 60 unit/L LAB CHEMISTRY METHOD 08/19/2024 3:13 PM [facility] Alkaline Phosphatase 88 42 - 121 unit/L LAB CHEMISTRY METHOD 08/19/2024 3:13 PM [facility] Total Protein 5.5(L) 6.0 - 8.0 g/dL LAB CHEMISTRY METHOD 08/19/2024 3:13 PM EST [facility] Albumin 1.5(L) 3.2 - 5.0 g/dL LAB CHEMISTRY METHOD 08/19/2024 3:13 PM [facility] Total Bilirubin 0.3 0.0 - 1.4 mg/dL LAB CHEMISTRY METHOD 08/19/2024 3:13 PM [facility] Blood Venous blood specimen / Unknown Venipuncture / Unknown 08/19/2024 8:46 AM EST 08/19/2024 12:22 PM EST us Tabby Bledsoe MD LAB BLOOD ORDERABLES Fin al Result [facility] [address] [place] [address], [place] [phone] * (ABNORMAL) Complete blood count (08/19/2024 8:46 AM EST) WBC 6.3 4.8 - 10.8 K/mcL LAB HEMETOLOGY METHOD 08/19/2024 1:38 PM [facility] RBC 2.80(L) 4.50 - 5.50 M/mcL LAB HEMETOLOGY METHOD 08/19/2024 1:38 PM [facility] Hemoglobin 7.5(L) 13.5 - 17.5 g/dL LAB HEMETOLOGY METHOD 08/19/2024 1:38 PM [facility] Hematocrit 25.6(L) 42.0 - 54.0 % LAB HEMETOLOGY METHOD 08/19/2024 1:38 PM [facility] MCV 92.4 79.0 - 98.0 FL LAB HEMETOLOGY METHOD 08/19/2024 1:38 PM [facility] MCH 27.1 27.0 - 32.0 pcg LAB HEMETOLOGY METHOD 08/19/2024 1:38 PM [facility] MCHC 29.3(L) 32.0 - 37.0 g/dL LAB HEMETOLOGY METHOD 08/19/2024 1:38 PM [facility] RDW 19.2(H) 11.0 - 15.0 % LAB HEMETOLOGY METHOD 08/19/2024 1:38 PM [facility] Platelets 289 130 - 400 K/mcL LAB HEMETOLOGY METHOD 08/19/2024 1:38 PM [facility] MPV 9.1 7.0 - 11.0 FL LAB HEMETOLOGY METHOD 08/19/2024 1:38 PM [facility] NRBC 0.0 <1.0 % LAB HEMETOLOGY METHOD 08/19/2024 1:38 PM [facility] NRBC Absolute 0.00 <0.10 K/mcL LAB HEMETOLOGY METHOD 08/19/2024 1:38 PM [facility] Blood Venous blood specimen / Unknown Venipuncture / Unknown 08/19/2024 8:46 AM EST 08/19/2024 12:22 PM EST Tabby Bledsoe MD LAB BLOOD ORDERABLES Fin al Result [facility] [address] [place] [address], documented in this encounter Visit Diagnoses Diagnosis Bacteremia documented in this encounter Additional Health Concerns Infection Onset Date Last Indicated Resolved Time ESBL 06/22/2024 06/22/2024 documented as of this encounter Care Teams Wood Boat Builder Supervisor Relationship Specialty Start Date End Date Uday Sheehan MD [address] [place] [address] Dr Donna [place] PCP - General Windscreen Fitter 12/19/16 documented as of this encounter
--- OUTSIDE RECORDS SUMMARY | 2025-03-08 21:08 | XMS_ITS | Encounter Summary ---
Author Organization [facility] Address [address] [place] [address] Care Team Providers Care Bark Grinder Name Role Phone Uday Sheehan Primary Care Provider [phone] Encounter Details Date Type Department Care Team (Late st Contact Info) Description 05/14/2024 Lab Requisition [facility] [address] [place] [address] Valarie Pierson MD [address] [place] [address] Acute and chronic respiratory failure with hypoxia; [...] this encounter Procedures * Due to [place] [employer] law, this organization might not be sharing negative HIV tests. Procedure Name Priority Date/Time Associated Diagnosis Comments BASIC METABOLIC PANEL Routine 05/14/2024 10:15 AM EST Acute and chronic respiratory failure with hypoxia (HCC) No diagnosis documented in this encounter Results * Due to [place] [employer] law, this organization might not be sharing negative HIV tests. * (ABNORMAL) Basic Metabolic Panel (05/14/2024 10:15 AM EST) NA 141 136 - 145 mmol/L 05/14/2024 10:44 AM EST [facility] K 3.7 3.5 - 5.1 mmol/L 05/14/2024 10:44 AM EST [facility] Cl 102 98 - 109 mmol/L 05/14/2024 10:44 AM EST [facility] CO2 28 22 - 32 mmol/L 05/14/2024 10:44 AM EST [facility] BUN 34(H) 8 - 23 mg/dL 05/14/2024 10:44 AM EST [facility] Creatinine 1.69(H) 0.50 - 1.12 mg/dL 05/14/2024 10:44 AM [facility] Glucose 100(H) 60 - 99 mg/dL 05/14/2024 10:44 AM EST [facility] Calcium 9.4 8.4 - 10.4 mg/dL 05/14/2024 10:44 AM EST [facility] Anion Gap 15 >=0 05/14/2024 10:44 AM [facility] eGFR 40(L) >=60 mL/min/1. 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
--- OUTSIDE RECORDS SUMMARY | 2025-03-08 21:08 | XMS_ITS | Encounter Summary ---
Author Organization [facility] Address [address] [place] [address] Care Team Providers Care Denture Finisher Name Role Phone Uday Sheehan MD Primary Care Provider [phone] Encounter Details Date Type Department Care Team (Late st Contact Info) Description 09/04/2024 Lab Requisition [facility] - Main Lab [address] [facility] [place] [address] Tabby Bledsoe MD [address] [address] Sequelae of unspecified nutritional deficiency; Encounter for [...] Vancomycin random (09/04/2024 7:02 AM EST) Pathologist [facility] Vancomycin Rm 18.9 mcg/mL LAB CHEMISTRY METHOD 09/04/2024 12:[address] [facility] Blood Venous blood specimen / Unknown Venipuncture / Unknown 09/04/2024 7:02 AM EST 09/04/2024 9:13 AM EST Tabby Bledsoe MD LAB BLOOD ORDERABLES Fin al Result [facility] [address] [place] [address], [place] [phone] * Vancomycin, trough (09/04/2024 7:02 AM EST) [facility] Vancomycin Trough 19.0 10.0 - 20.0 mcg/mL LAB CHEMISTRY METHOD 09/04/2024 10:[address] [facility] Blood Venous blood specimen / Unknown Venipuncture / Unknown 09/04/2024 7:02 AM EST 09/04/2024 9:13 AM EST Tabby Bledsoe MD LAB BLOOD ORDERABLES Fin al Result Performing Organization Address City/[facility]/ZIP Co de Phone Number [facility] [address] [place] [address], [place] [phone] * (ABNORMAL) Comprehensive metabolic panel (09/04/2024 7:02 AM EST) [facility] Sodium 142 133 - 145 mmol/L LAB CHEMISTRY METHOD 09/04/2024 11:[address] [facility] Potassium 3.9 3.5 - 5.5 mmol/L LAB CHEMISTRY METHOD 09/04/2024 11:[address] [facility] Chloride 107 96 - 110 mmol/L LAB CHEMISTRY METHOD 09/04/2024 11:[address] [facility] CO2 31 21 - 32 mmol/L LAB CHEMISTRY METHOD 09/04/2024 11:[address] [facility] Anion Gap 4 3 - 11 LAB CHEMISTRY METHOD 09/04/2024 11:[address] [facility] Glucose 76 70 - 100 mg/dL LAB CHEMISTRY METHOD 09/04/2024 11:[address] [facility] BUN 28(H) 5 - 25 mg/dL LAB CHEMISTRY METHOD 09/04/2024 11:[address] [facility] Creatinine 1.16 0.70 - 1.30 mg/dL LAB CHEMISTRY METHOD 09/04/2024 11:[address] [facility] eGFR 62 >=60 mL/min/1. 73m2 LAB CHEMISTRY METHOD 09/04/2024 11:[address] [facility] Comment:Calculation based on the Chronic Kidney Disease Epidemiology Collaboration (CKD-EPI) equation refit without adjustment for race. BUN/Creatinine Ratio 24.1 LAB CHEMISTRY METHOD 09/04/2024 11:[address] [facility] Calcium 8.3(L) 8.5 - 10.5 mg/dL LAB CHEMISTRY METHOD 09/04/2024 11:[address] [facility] AST (SGOT) 48(H) 10 - 42 unit/L LAB CHEMISTRY METHOD 09/04/2024 11:[address] [facility] ALT (SGPT) 34 10 - 60 unit/L LAB CHEMISTRY METHOD 09/04/2024 11:[address] [facility] Alkaline Phosphatase 86 42 - 121 unit/L LAB CHEMISTRY METHOD 09/04/2024 11:[address] [facility] Total Protein 5.4(L) 6.0 - 8.0 g/dL LAB CHEMISTRY METHOD 09/04/2024 11:[address] [facility] Albumin 1.3(L) 3.2 - 5.0 g/dL LAB CHEMISTRY METHOD 09/04/2024 11:[address] [facility] Total Bilirubin 0.4 0.0 - 1.4 mg/dL LAB CHEMISTRY METHOD 09/04/2024 11:[address] [facility] Blood Venous blood specimen / Unknown Venipuncture / Unknown 09/04/2024 7:02 AM EST 09/04/2024 9:13 AM EST us Tabby Bledsoe MD LAB BLOOD ORDERABLES Fin al Result [facility] [address] [place] [address], * (ABNORMAL) Complete blood count (09/04/2024 7:02 AM EST) WBC 6.6 4.8 - 10.8 K/mcL LAB HEMETOLOGY METHOD 09/04/2024 10:[address] [facility] RBC 3.10(L) 4.50 - 5.50 [facility] LAB HEMETOLOGY METHOD 09/04/2024 10:[address] [facility] Hemoglobin 8.7(L) 13.5 - 17.5 g/dL LAB HEMETOLOGY METHOD 09/04/2024 10:[address] [facility] Hematocrit 29.7(L) 42.0 - 54.0 % LAB HEMETOLOGY METHOD 09/04/2024 10:[address] [facility] MCV 95.5 79.0 - 98.0 FL LAB HEMETOLOGY METHOD 09/04/2024 10:[address] [facility] MCH 28.0 27.0 - 32.0 pcg LAB HEMETOLOGY METHOD 09/04/2024 10:[address] [facility] MCHC 29.3(L) 32.0 - 37.0 g/dL LAB HEMETOLOGY METHOD 09/04/2024 10:[address] [facility] RDW 17.0(H) 11.0 - 15.0 % LAB HEMETOLOGY METHOD 09/04/2024 10:[address] [facility] Platelets 269 130 - 400 K/mcL LAB HEMETOLOGY METHOD 09/04/2024 10:[address] [facility] MPV 9.5 7.0 - 11.0 FL LAB HEMETOLOGY METHOD 09/04/2024 10:[address] [facility] NRBC 0.0 <1.0 % LAB HEMETOLOGY METHOD 09/04/2024 10:[address] [facility] NRBC Absolute 0.00 <0.10 K/mcL LAB HEMETOLOGY METHOD 09/04/2024 10:[address] [facility] Blood Venous blood specimen / Unknown Venipuncture / Unknown 09/04/2024 7:02 AM EST 09/04/2024 9:13 AM EST Tabby Bledsoe MD LAB BLOOD ORDERABLES Fin al Result [facility] [address] [place] [address], documented in this encounter Visit Diagnoses Diagnosis Sequelae of unspecified nutritional deficiency Encounter for therapeutic drug level monitoring documented in this encounter Additional Health Concerns Infection Onset Date Last Indicated Resolved Time ESBL 06/22/2024 06/22/2024 documented as of this encounter Care Teams Denture Finisher Relationship Specialty Start Date End Date Uday Sheehan MD [address] [place] [address] Dr Donna [place] PCP - General Atomic Fuel Assembler 12/19/16 documented as of this encounter
--- OUTSIDE RECORDS SUMMARY | 2025-03-08 21:08 | XMS_ITS | Clinical Summary ---
Author Organization [facility], Address [address] [place] [address] [place] [address] Phone Care Team Providers Care President And Ceo Name Role Phone Uday Sheehan MD Primary Care Provider Allergies Active Allergy Reactions Criticality Noted Date [...] of 2 - PCV) 02/15/1959 Influenza Vaccine (#1) 2025 04/08/2024 Hepatitis B Vaccine Aged Out No longe r eligible based on patient's age to complete this topic Insurance Medicare [facility] Medicare [facility] Medicare [facility] Care Teams President And Ceo Relationship Specialty Start Date End Date Uday Sheehan MD [address] [place], [place] PCP - General 05/14/19
--- OUTSIDE RECORDS SUMMARY | 2025-03-08 21:08 | XMS_ITS | Encounter Summary ---
Author Organization [facility] Address [address] [place] [address] Care Team Providers Care Vegetable Washing Machine Operator Name Role Phone Uday Sheehan MD Primary Care Provider [phone] Encounter Details Date Type Department Care Team (Late st Contact Info) Description 09/18/[address] [facility] - Main Lab [address] [place] [address] Tabby Bledsoe MD [address] [id number] Anemia, unspecified; Other disorders of electrolyte and [...] mmol/L LAB CHEMISTRY METHOD 09/18/2024 1:01 PM [facility] Potassium 4.1 3.5 - 5.5 mmol/L LAB CHEMISTRY METHOD 09/18/2024 1:01 PM [facility] Chloride 106 96 - 110 mmol/L LAB CHEMISTRY METHOD 09/18/2024 1:01 PM [facility] CO2 29 21 - 32 mmol/L LAB CHEMISTRY METHOD 09/18/2024 1:01 PM [facility] Anion Gap 6 3 - 11 LAB CHEMISTRY METHOD 09/18/2024 1:01 PM [facility] Glucose 81 70 - 100 mg/dL LAB CHEMISTRY METHOD 09/18/2024 1:01 PM [facility] BUN 25 5 - 25 mg/dL LAB CHEMISTRY METHOD 09/18/2024 1:01 PM [facility] Creatinine 1.40(H) 0.70 - 1.30 mg/dL LAB CHEMISTRY METHOD 09/18/2024 1:01 PM [facility] eGFR 50(L) >=60 mL/min/1. 73m2 LAB CHEMISTRY METHOD 09/18/2024 1:01 PM [facility] Comment:Calculation based on the Chronic Kidney Disease Epidemiology Collaboration (CKD-EPI) equation refit without adjustment for race. BUN/Creatinine Ratio 17.9 LAB CHEMISTRY METHOD 09/18/2024 1:01 PM [facility] Calcium 8.2(L) 8.5 - 10.5 mg/dL LAB CHEMISTRY METHOD 09/18/2024 1:01 PM [facility] AST (SGOT) 20 10 - 42 unit/L LAB CHEMISTRY METHOD 09/18/2024 1:01 PM [facility] ALT (SGPT) 10 10 - 60 unit/L LAB CHEMISTRY METHOD 09/18/2024 1:01 PM [facility] Alkaline Phosphatase 82 42 - 121 unit/L LAB CHEMISTRY METHOD 09/18/2024 1:01 PM EDT [facility] Total Protein 5.2(L) 6.0 - 8.0 g/dL LAB CHEMISTRY METHOD 09/18/2024 1:01 PM EDT [facility] Albumin 1.3(L) 3.2 - 5.0 g/dL LAB CHEMISTRY METHOD 09/18/2024 1:01 PM EDT [facility] Total Bilirubin 0.3 0.0 - 1.4 mg/dL LAB CHEMISTRY METHOD 09/18/2024 1:01 PM EDT [facility] Blood Venous blood specimen / Unknown Venipuncture / Unknown 09/18/2024 8:38 AM EDT 09/18/2024 10:35 AM EDT us Tabby Bledsoe MD LAB BLOOD ORDERABLES Fin al Result [facility] [address] [place] [address], * (ABNORMAL) Complete blood count (09/18/2024 8:38 AM EDT) WBC 6.7 4.8 - 10.8 K/mcL LAB HEMETOLOGY METHOD 09/18/2024 12:22 PM [facility] RBC 2.70(L) 4.50 - 5.50 M/mcL LAB HEMETOLOGY METHOD 09/18/2024 12:22 PM EDT [facility] Hemoglobin 7.5(L) 13.5 - 17.5 g/dL LAB HEMETOLOGY METHOD 09/18/2024 12:22 PM [facility] Hematocrit 25.5(L) 42.0 - 54.0 % LAB HEMETOLOGY METHOD 09/18/2024 12:22 PM [facility] MCV 94.8 79.0 - 98.0 FL LAB HEMETOLOGY METHOD 09/18/2024 12:22 PM EDT [facility] MCH 27.9 27.0 - 32.0 pcg LAB HEMETOLOGY METHOD 09/18/2024 12:22 PM EDT [facility] MCHC 29.4(L) 32.0 - 37.0 g/dL LAB HEMETOLOGY METHOD 09/18/2024 12:22 PM EDT [facility] RDW 16.5(H) 11.0 - 15.0 % LAB HEMETOLOGY METHOD 09/18/2024 12:22 PM EDT [facility] Platelets 192 130 - 400 K/mcL LAB HEMETOLOGY METHOD 09/18/2024 12:22 PM EDT [facility] MPV 9.9 7.0 - 11.0 FL LAB HEMETOLOGY METHOD 09/18/2024 12:22 PM EDT [facility] NRBC 0.0 <1.0 % LAB HEMETOLOGY METHOD 09/18/2024 12:22 PM EDT [facility] NRBC Absolute 0.00 <0.10 K/mcL LAB HEMETOLOGY METHOD 09/18/2024 12:22 PM T [facility] Blood Venous blood specimen / Unknown Venipuncture / Unknown 09/18/2024 8:38 AM EDT 09/18/2024 10:35 AM EDT us Tabby Bledsoe MD LAB BLOOD ORDERABLES Fin al Result [facility] [address] [place] [address], documented in this encounter Visit Diagnoses Diagnosis Anemia, unspecified Other disorders of electrolyte and fluid balance, not elsewhere classified documented in this encounter Additional Health Concerns Infection Onset Date Last Indicated Resolved Time ESBL 06/22/2024 06/22/2024 documented as of this encounter Care Teams Vegetable Washing Machine Operator Relationship Specialty Start Date End Date Uday Sheehan MD [address] Donna [place] PCP - General Manager Of Purchasing 12/19/16 documented as of this encounter
--- OUTSIDE RECORDS SUMMARY | 2025-03-08 21:08 | XMS_ITS | Encounter Summary ---
Author Organization [facility] Address [address] [place] [address] Care Team Providers Care Varnish Melter Helper Name Role Phone Uday Sheehan MD Primary Care Provider [phone] Encounter Details Date Type Department Care Team (Late st Contact Info) Description 11/01/2024 Lab Requisition [facility] - Main Lab [address] [place] [address] Tabby Bledsoe MD [address] [address] Bacteremia Social History Tobacco Use Types Packs/Day [...] LAB CHEMISTRY METHOD 11/04/2024 7:30 PM EDT [facility] Potassium 3.9 3.5 - 5.5 mmol/L LAB CHEMISTRY METHOD 11/04/2024 7:30 PM EDT [facility] Chloride 110 96 - 110 mmol/L LAB CHEMISTRY METHOD 11/04/2024 7:30 PM [facility] CO2 25 21 - 32 mmol/L LAB CHEMISTRY METHOD 11/04/2024 7:30 PM [facility] Anion Gap 7 3 - 11 LAB CHEMISTRY METHOD 11/04/2024 7:30 PM [facility] Glucose 113(H) 70 - 100 mg/dL LAB CHEMISTRY METHOD 11/04/2024 7:30 PM [facility] BUN 30(H) 5 - 25 mg/dL LAB CHEMISTRY METHOD 11/04/2024 7:30 PM [facility] Creatinine 1.06 0.70 - 1.30 mg/dL LAB CHEMISTRY METHOD 11/04/2024 7:30 PM [facility] eGFR 69 >=60 mL/min/1. 73m2 LAB CHEMISTRY METHOD 11/04/2024 7:30 PM [facility] Comment:Calculation based on the Chronic Kidney Disease Epidemiology Collaboration (CKD-EPI) equation refit without adjustment for race. BUN/Creatinine Ratio 28.3 LAB CHEMISTRY METHOD 11/04/2024 7:30 PM [facility] Calcium 7.6(L) 8.5 - 10.5 mg/dL LAB CHEMISTRY METHOD 11/04/2024 7:30 PM [facility] Blood Venous blood specimen / Unknown Venipuncture / Unknown 11/04/2024 9:52 AM EDT 11/04/2024 11:40 AM EDT us Tabby Bledsoe MD LAB BLOOD ORDERABLES Fin al Result [facility] [address] [place] [address], * (ABNORMAL) Complete blood count (11/04/2024 9:52 AM EDT) [facility] WBC 5.6 4.8 - 10.8 K/mcL LAB HEMETOLOGY METHOD 11/04/2024 1:17 PM [facility] RBC 2.40(L) 4.50 - 5.50 M/mcL LAB HEMETOLOGY METHOD 11/04/2024 1:17 PM [facility] Hemoglobin 6.5(L) 13.5 - 17.5 g/dL LAB HEMETOLOGY METHOD 11/04/2024 1:17 PM [facility] Hematocrit 21.8(L) 42.0 - 54.0 % LAB HEMETOLOGY METHOD 11/04/2024 1:17 PM [facility] MCV 92.0 79.0 - 98.0 FL LAB HEMETOLOGY METHOD 11/04/2024 1:17 PM [facility] MCH 27.4 27.0 - 32.0 pcg LAB HEMETOLOGY METHOD 11/04/2024 1:17 PM [facility] MCHC 29.8(L) 32.0 - 37.0 g/dL LAB HEMETOLOGY METHOD 11/04/2024 1:17 PM [facility] RDW 17.2(H) 11.0 - 15.0 % LAB HEMETOLOGY METHOD 11/04/2024 1:17 PM [facility] Platelets 224 130 - 400 K/mcL LAB HEMETOLOGY METHOD 11/04/2024 1:17 PM [facility] MPV 9.8 7.0 - 11.0 FL LAB HEMETOLOGY METHOD 11/04/2024 1:17 PM [facility] NRBC 0.0 <1.0 % LAB HEMETOLOGY METHOD 11/04/2024 1:17 PM [facility] NRBC Absolute 0.00 <0.10 K/mcL LAB HEMETOLOGY METHOD 11/04/2024 1:17 PM EDT [facility] Blood Venous blood specimen / Unknown Venipuncture / Unknown 11/04/2024 9:52 AM EDT 11/04/2024 11:23 AM EDT us Tabby Bledsoe MD LAB BLOOD ORDERABLES Fin al Result [facility] [address] [place] [address], documented in this encounter Visit Diagnoses Diagnosis Bacteremia documented in this encounter Additional Health Concerns Infection Onset Date Last Indicated Resolved Time ESBL 06/22/2024 06/22/2024 documented as of this encounter Care Teams Varnish Melter Helper Relationship Specialty Start Date End Date Uday Sheehan MD [address] [facility] [address] Donna [place] PCP - General Fabrication Mig Welder 12/19/16 documented as of this encounter
--- OUTSIDE RECORDS SUMMARY | 2025-03-08 21:08 | XMS_ITS | Encounter Summary ---
Author Organization [facility] Address [address] [place] [address] Care Team Providers Care Art Psychotherapist Name Role Phone Uday Sheehan MD Primary Care Provider [phone] Encounter Details Date Type Department Care Team (Late st Contact Info) Description 09/08/[address] [facility] - Main Lab [address] [facility] [place] [address] Tabby Bledsoe MD 8[address] [facility] 1 [place], [place] [id number] Bacteremia; Osteomyelitis, unspecified (CMS/HCC V24, CMS/HCC V28) [...] * Vancomycin, trough (09/09/2024 9:00 AM EST) [facility] Vancomycin Trough 18.4 10.0 - 20.0 mcg/mL LAB CHEMISTRY METHOD 09/09/2024 1:34 PM [facility] Blood Venous blood specimen / Unknown Venipuncture / Unknown 09/09/2024 9:00 AM EST 09/09/2024 11:09 AM EST us Tabby Bledsoe MD LAB BLOOD ORDERABLES Fin al Result [facility] [address] [place] [address], [place] [phone] * (ABNORMAL) Comprehensive metabolic panel (09/09/2024 9:00 AM EST) [facility] Sodium 142 133 - 145 mmol/L LAB CHEMISTRY METHOD 09/09/2024 1:34 PM [facility] Potassium 3.9 3.5 - 5.5 mmol/L LAB CHEMISTRY METHOD 09/09/2024 1:34 PM [facility] Chloride 105 96 - 110 mmol/L LAB CHEMISTRY METHOD 09/09/2024 1:34 PM [facility] CO2 28 21 - 32 mmol/L LAB CHEMISTRY METHOD 09/09/2024 1:34 PM [facility] Anion Gap 9 3 - 11 LAB CHEMISTRY METHOD 09/09/2024 1:34 PM [facility] Glucose 87 70 - 100 mg/dL LAB CHEMISTRY METHOD 09/09/2024 1:34 PM [facility] BUN 17 5 - 25 mg/dL LAB CHEMISTRY METHOD 09/09/2024 1:34 PM [facility] Creatinine 1.04 0.70 - 1.30 mg/dL LAB CHEMISTRY METHOD 09/09/2024 1:34 PM [facility] eGFR 71 >=60 mL/min/1. 73m2 LAB CHEMISTRY METHOD 09/09/2024 1:34 PM EST [facility] Comment:Calculation based on the Chronic Kidney Disease Epidemiology Collaboration (CKD-EPI) equation refit without adjustment for race. BUN/Creatinine Ratio 16.3 LAB CHEMISTRY METHOD 09/09/2024 1:34 PM [facility] Calcium 8.4(L) 8.5 - 10.5 mg/dL LAB CHEMISTRY METHOD 09/09/2024 1:34 PM [facility] AST (SGOT) 20 10 - 42 unit/L LAB CHEMISTRY METHOD 09/09/2024 1:34 PM [facility] ALT (SGPT) 17 10 - 60 unit/L LAB CHEMISTRY METHOD 09/09/2024 1:34 PM [facility] Alkaline Phosphatase 96 42 - 121 unit/L LAB CHEMISTRY METHOD 09/09/2024 1:34 PM [facility] Total Protein 5.8(L) 6.0 - 8.0 g/dL LAB CHEMISTRY METHOD 09/09/2024 1:34 PM [facility] Albumin 1.5(L) 3.2 - 5.0 g/dL LAB CHEMISTRY METHOD 09/09/2024 1:34 PM [facility] Total Bilirubin 0.3 0.0 - 1.4 mg/dL LAB CHEMISTRY METHOD 09/09/2024 1:34 PM [facility] Blood Venous blood specimen / Unknown Venipuncture / Unknown 09/09/2024 9:00 AM EST 09/09/2024 11:09 AM EST us Tabby Bledsoe MD LAB BLOOD ORDERABLES Fin al Result [facility] [address] [place] [address], * (ABNORMAL) Complete blood count (09/09/2024 9:00 AM EST) WBC 6.9 4.8 - 10.8 K/mcL LAB HEMETOLOGY METHOD 09/09/2024 1:45 PM [facility] RBC 3.30(L) 4.50 - 5.50 M/mcL LAB HEMETOLOGY METHOD 09/09/2024 1:45 PM [facility] Hemoglobin 9.1(L) 13.5 - 17.5 g/dL LAB HEMETOLOGY METHOD 09/09/2024 1:45 PM [facility] Hematocrit 30.6(L) 42.0 - 54.0 % LAB HEMETOLOGY METHOD 09/09/2024 1:45 PM [facility] MCV 93.3 79.0 - 98.0 FL LAB HEMETOLOGY METHOD 09/09/2024 1:45 PM [facility] MCH 27.7 27.0 - 32.0 pcg LAB HEMETOLOGY METHOD 09/09/2024 1:45 PM [facility] MCHC 29.7(L) 32.0 - 37.0 g/dL LAB HEMETOLOGY METHOD 09/09/2024 1:45 PM [facility] RDW 15.8(H) 11.0 - 15.0 % LAB HEMETOLOGY METHOD 09/09/2024 1:45 PM [facility] Platelets 259 130 - 400 K/mcL LAB HEMETOLOGY METHOD 09/09/2024 1:45 PM [facility] MPV 9.4 7.0 - 11.0 FL LAB HEMETOLOGY METHOD 09/09/2024 1:45 PM [facility] NRBC 0.0 <1.0 % LAB HEMETOLOGY METHOD 09/09/2024 1:45 PM [facility] NRBC Absolute 0.00 <0.10 K/mcL LAB HEMETOLOGY METHOD 09/09/2024 1:45 PM [facility] Blood Venous blood specimen / Unknown Venipuncture / Unknown 09/09/2024 9:00 AM EST 09/09/2024 11:09 AM EST us Tabby Bledsoe MD LAB BLOOD ORDERABLES Fin al Result [facility] [address] [place] [address], documented in this encounter Visit Diagnoses Diagnosis Bacteremia Osteomyelitis, unspecified (CMS/[facility] V24, CMS/[facility] V28) documented in this encounter Additional Health Concerns Infection Onset Date Last Indicated Resolved Time ESBL 06/22/2024 06/22/2024 documented as of this encounter Care Teams Art Psychotherapist Relationship Specialty Start Date End Date Uday Sheehan MD [address] [place] [address] Dr Donna [place] PCP - General Field Artillery Operations Specialist 12/19/16 documented as of this encounter
--- OUTSIDE RECORDS SUMMARY | 2025-03-08 21:08 | XMS_ITS | Encounter Summary ---
Author Organization [facility] Address [address] [place] [address] Care Team Providers Care Marketing Proposal Specialist Name Role Phone Uday Sheehan MD Primary Care Provider Encounter Details Date Type Department Care Team (Late st Contact Info) Description 09/15/2024 Lab Requisition [facility] - Main Lab [address] [facility] [place] [address] Tabby Bledsoe MD [address] [address] Bacteremia Social History Tobacco Use Types Packs/Day [...] as of this encounter Care Teams Marketing Proposal Specialist Relationship Specialty Start Date End Date Uday Sehehan MD [address] [place] [address] PCP - General Care Director 12/19/16 documented as of this encounter
--- OUTSIDE RECORDS SUMMARY | 2025-03-08 21:08 | XMS_ITS | Encounter Summary ---
Author Organization [facility] Address [address] [place] [address] Care Team Providers Care Osteologist Name Role Phone Uday Sheehan MD Primary Care Provider [phone] Encounter Details Date Type Department Care Team (Late st Contact Info) Description 01/09/2025 Lab Requisition [facility] - Main Lab [address] [place] [address] Tabby Bledsoe MD [address] [address] Bacteremia Social History Tobacco Use Types Packs/Day [...] Associated Diagnosis Comments COMPLETE BLOOD COUNT Routine 01/13/2025 8:21 AM EDT Bacteremia COMPREHENSIVE METABOLIC PANEL Routine 01/13/2025 8:21 AM EDT Bacteremia documented in this encounter Results * (ABNORMAL) Comprehensive metabolic panel (01/13/2025 8:21 AM EDT) Sodium 140 133 - 145 mmol/L LAB CHEMISTRY METHOD 01/13/2025 11:51 AM EDT [facility] Potassium 4.3 3.5 - 5.5 mmol/L LAB CHEMISTRY METHOD 01/13/2025 11:51 AM [facility] Chloride 104 96 - 110 mmol/L LAB CHEMISTRY METHOD 01/13/2025 11:51 AM [facility] CO2 31 21 - 32 mmol/L LAB CHEMISTRY METHOD 01/13/2025 11:51 AM [facility] Anion Gap 5 3 - 11 LAB CHEMISTRY METHOD 01/13/2025 11:51 AM [facility] Glucose 114(H) 70 - 100 mg/dL LAB CHEMISTRY METHOD 01/13/2025 11:51 AM [facility] BUN 53(H) 5 - 25 mg/dL LAB CHEMISTRY METHOD 01/13/2025 11:51 AM [facility] Creatinine 1.51(H) 0.70 - 1.30 mg/dL LAB CHEMISTRY METHOD 01/13/2025 11:51 AM [facility] eGFR 45(L) >=60 mL/min/1. 73m2 LAB CHEMISTRY METHOD 01/13/2025 11:51 AM [facility] Comment:Calculation based on the Chronic Kidney Disease Epidemiology Collaboration (CKD-EPI) equation refit without adjustment for race. BUN/Creatinine Ratio 35.1 LAB CHEMISTRY METHOD 01/13/2025 11:51 AM [facility] Calcium 8.1(L) 8.5 - 10.5 mg/dL LAB CHEMISTRY METHOD 01/13/2025 11:51 AM [facility] AST (SGOT) 57(H) 10 - 42 unit/L LAB CHEMISTRY METHOD 01/13/2025 11:51 AM [facility] ALT (SGPT) 45 10 - 60 unit/L LAB CHEMISTRY METHOD 01/13/2025 11:51 AM [facility] Alkaline Phosphatase 113 42 - 121 unit/L LAB CHEMISTRY METHOD 01/13/2025 11:51 AM [facility] Total Protein 6.3 6.0 - 8.0 g/dL LAB CHEMISTRY METHOD 01/13/2025 11:51 AM T [facility] Albumin 1.6(L) 3.2 - 5.0 g/dL LAB CHEMISTRY METHOD 01/13/2025 11:51 AM T [facility] Total Bilirubin 0.3 0.0 - 1.4 mg/dL LAB CHEMISTRY METHOD 01/13/2025 11:51 AM EDT [facility] Blood Venous blood specimen / Unknown Venipuncture / Unknown 01/13/2025 8:21 AM EDT 01/13/2025 11:47 AM EDT us aTbby Bledsoe MD LAB BLOOD ORDERABLES Fin al Result [facility] [address] [place] [address], * (ABNORMAL) Complete blood count (01/13/2025 8:21 AM EDT) WBC 7.6 4.8 - 10.8 K/mcL LAB HEMETOLOGY METHOD 01/13/2025 11:45 AM [facility] RBC 2.90(L) 4.50 - 5.50 M/mcL LAB HEMETOLOGY METHOD 01/13/2025 11:45 AM [facility] Hemoglobin 7.4(L) 13.5 - 17.5 g/dL LAB HEMETOLOGY METHOD 01/13/2025 11:45 AM T [facility] Hematocrit 27.1(L) 42.0 - 54.0 % LAB HEMETOLOGY METHOD 01/13/2025 11:45 AM [facility] MCV 94.4 79.0 - 98.0 FL LAB HEMETOLOGY METHOD 01/13/2025 11:45 AM [facility] MCH 25.8(L) 27.0 - 32.0 pcg LAB HEMETOLOGY METHOD 01/13/2025 11:45 AM EDT [facility] MCHC 27.3(L) 32.0 - 37.0 g/dL LAB HEMETOLOGY METHOD 01/13/2025 11:45 AM EDT [facility] RDW 18.6(H) 11.0 - 15.0 % LAB HEMETOLOGY METHOD 01/13/2025 11:45 AM EDT [facility] Platelets 209 130 - 400 K/mcL LAB HEMETOLOGY METHOD 01/13/2025 11:45 AM EDT [facility] MPV 9.9 7.0 - 11.0 FL LAB HEMETOLOGY METHOD 01/13/2025 11:45 AM EDT [facility] NRBC 0.0 <1.0 % LAB HEMETOLOGY METHOD 01/13/2025 11:45 AM EDT [facility] NRBC Absolute 0.00 <0.10 K/mcL LAB HEMETOLOGY METHOD 01/13/2025 11:45 AM EDT [facility] Blood Venous blood specimen / Unknown Venipuncture / Unknown 01/13/2025 8:21 AM EDT 01/13/2025 10:57 AM EDT us Tabby Bledsoe MD LAB BLOOD ORDERABLES Fin al Result [facility] [address] [place] [address], documented in this encounter Visit Diagnoses Diagnosis Bacteremia documented in this encounter Additional Health Concerns Infection Onset Date Last Indicated Resolved Time ESBL 06/22/2024 06/22/2024 documented as of this encounter Care Teams Osteologist Relationship Specialty Start Date End Date Uday Sheehan MD [address] [place] [address] Dr Thompson [place] PCP - General Automatic Transmission Mechanic 12/19/16 documented as of this encounter
--- OUTSIDE RECORDS SUMMARY | 2025-03-08 21:08 | XMS_ITS | Encounter Summary ---
Author Organization [facility] Address [address] [place] [address] Care Team Providers Care Patient Transition Specialist Name Role Phone Uday Sheehan Primary Care Provider [phone] Encounter Details Date Type Department Care Team (Late st Contact Info) Description 03/20/2024 Lab Requisition [facility] [address] [place] [address] Lidia Barry NP [address] [place] [address] Acute and chronic respiratory failure with hypoxia; [...] this encounter Procedures * Due to [place] Primo1D law, this organization might not be sharing negative HIV tests. Procedure Name Priority Date/Time Associated Diagnosis Comments VANCOMYCIN, TROUGH Routine 03/20/2024 7: 13 AM EDT Acute and chronic respiratory failure with hypoxia (HCC) No diagnosis documented in this encounter Results * Due to [place] Primo[employer]D law, this organization might not be sharing negative HIV tests. * (ABNORMAL) Vancomycin, Trough (03/20/2024 7:13 AM EDT) Vancomycin Trough 21.5(H) 10.0 - 20.0 ug/mL 03/20/2024 7:42 AM EDT [facility] Blood Structure of peripheral vein / Unknown 03/20/2024 7:13 AM EDT 03/20/2024 7:13 AM EDT Lidia Barry ADMINISTRATIVE TECH LAB BLOOD ORDERABLES Final R esult [facility] [address] [place] [address], documented in this encounter Visit Diagnoses Diagnosis [...] as of this encounter Care Teams Patient Transition Specialist Relationship Specialty Start Date End Date Uday Sheehan [address] [place] [address] dr Donna Thompson, [place] [address] PCP - General Internal Medicine 03/27/24 documented as of this encounter
--- OUTSIDE RECORDS SUMMARY | 2025-03-08 21:08 | XMS_ITS | Encounter Summary ---
Author Organization [facility] Address [address] [place] [address] Care Team Providers Care Cold Reduction Roller Name Role Phone Uday Sheehan Primary Care Provider [phone] Encounter Details Date Type Department Care Team (Late st Contact Info) Description 05/13/2024 Lab Requisition [facility] Lab [address] [place] [address] Salo Whyte MD [address] [place] [address] Acute and chronic respiratory failure with hypoxia; [...] - 10.8 10*3/uL 05/13/2024 10:06 AM EST [facility] RBC 3.01(L) 4.70 - 6.10 10*6/uL 05/13/2024 10:06 AM EST [facility] Hemoglobin 8.3(L) 13.7 - 16.5 g/dL 05/13/2024 10:06 AM EST [facility] Hematocrit 26.0(L) 40.5 - 48.5 % 05/13/2024 10:06 AM EST [facility] MCV 86.4 80.0 - 94.0 fL 05/13/2024 10:06 AM EST [facility] MCH 27.6 26.0 - 34.0 pg 05/13/2024 10:06 AM [facility] MCHC 31.9 31.0 - 36.0 g/dL 05/13/2024 10:06 AM [facility] RDW 16.8(H) 12.0 - 15.0 % 05/13/2024 10:06 AM [facility] RDW Standard Deviation 53.1(H) 35.1 - 43.9 fL 05/13/2024 10:06 AM [facility] Platelets 143 140 - 440 10*3/uL 05/13/2024 10:06 AM EST [facility] MPV 10.6 9.4 - 12.4 fL 05/13/2024 10:06 AM [facility] Neutrophil % 57.3 50.0 - 75.0 % 05/13/2024 10:06 AM [facility] Immature Grans % 0.2 0.0 - 0.9 % 05/13/2024 10:06 AM [facility] Lymphocyte % 26.4 20.0 - 44.0 % 05/13/2024 10:06 AM EST [facility] Monocyte % 11.2 0.0 - 14.0 % 05/13/2024 10:06 AM EST [facility] Eosinophil % 4.6 0.0 - 5.0 % 05/13/2024 10:06 AM EST [facility] Basophil % 0.3 0.0 - 2.0 % 05/13/2024 10:06 AM EST [facility] Neutrophil # 3.36 1.80 - 7.70 10*3/uL 05/13/2024 10:06 AM EST [facility] Immature Grans # <0.03 0.00 - 0.03 10*3/uL 05/13/2024 10:06 AM EST [facility] Lymphocyte # 1.60 1.00 - 4.75 10*3/uL 05/13/2024 10:06 AM EST [facility] Monocyte # 0.70 0.00 - 6.00 10*3/uL 05/13/2024 10:06 AM EST [facility] Eosinophil # 0.30 0.00 - 0.80 10*3/uL 05/13/2024 10:06 AM EST [facility] Basophil # <0.03 0.00 - 0.20 10*3/uL 05/13/2024 10:06 AM EST [facility] nRBC % 0.0 0 - 0 /100 WBCs 05/13/2024 10:06 AM EST [facility] nRBC # <0.01 0.00 - 0.13 10*3/uL 05/13/2024 10:06 AM EST [facility] Blood Structure of peripheral vein / Unknown Venipuncture / Unknown 05/13/2024 9:32 AM EST 05/13/2024 9:32 AM EST us Salo Whyte MD LAB BLOOD ORDERABLES Final Result Performing Organization Address City/State/[facility] Co de Phone Number [facility] [address] [place] [address], [place] [phone] * (ABNORMAL) Comprehensive Metabolic Panel (05/13/2024 9:32 AM EST) NA 138 136 - 145 mmol/L 05/13/2024 10:36 AM EST [facility] K 3.6 3.5 - 5.1 mmol/L 05/13/2024 10:36 AM EST [facility] Cl 99 98 - 109 mmol/L 05/13/2024 10:36 AM EST [facility] CO2 30 22 - 32 mmol/L 05/13/2024 10:36 AM [facility] Anion Gap 13 >=0 05/13/2024 10:36 AM [facility] Glucose 118(H) 60 - 99 mg/dL 05/13/2024 10:36 AM [facility] Creatinine 1.73(H) 0.50 - 1.12 mg/dL 05/13/2024 10:36 AM [facility] Calcium 9.5 8.4 - 10.4 mg/dL 05/13/2024 10:36 AM [facility] Total Protein 6.1(L) 6.6 - 8.7 g/dL 05/13/2024 10:36 AM [facility] Albumin 3.0(L) 3.5 - 5.0 g/dL 05/13/2024 10:36 AM [facility] Bilirubin, Total 0.4 0.2 - 1.2 mg/dL 05/13/2024 10:36 AM [facility] Alkaline Phosphatase 102 40 - 129 U/L 05/13/2024 10:36 AM [facility] AST 18 0 - 40 U/L 05/13/2024 10:36 AM [facility] ALT 17 <=41 U/L 05/13/2024 10:36 AM [facility] BUN 36(H) 8 - 23 mg/dL 05/13/2024 10:36 AM [facility] eGFR 38(L) >=60 mL/min/1. 73m2 05/13/2024 10:36 AM EST [facility] Comment:The estimated glomer ular filtration rate [...] - 4.2 g/dL 05/13/2024 10:36 AM EST [facility] A/G Ratio 1.0(L) 1.5 - 3.0 05/13/2024 10:36 AM EST [facility] Blood Structure of peripheral vein / Unknown Venipuncture / Unknown 05/13/2024 9:32 AM EST 05/13/2024 9:32 AM EST Salo Whyte MD LAB BLOOD ORDERABLES Final Result Performing Organization Address City/State/[facility] Co de Phone Number [facility] [address] [facility] [address] [place] [address], documented in this encounter Visit Diagnoses Diagnosis Acute and chronic respiratory failure with hypoxia (HCC) No diagnosis documented in this encounter Additional Health Concerns Infection Onset Date Last Indicated Resolved Time 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
--- OUTSIDE RECORDS SUMMARY | 2025-03-08 21:08 | XMS_ITS | Encounter Summary ---
Author Organization [facility] Address [address] [place] [address] Care Team Providers Care Equity Holder Name Role Phone Uday Sheehan MD Primary Care Provider [phone] Encounter Details Date Type Department Care Team (Late st Contact Info) Description 08/28/2024 Lab Requisition [facility] Lab [address] [place] [address] Tabby Bledsoe MD [address] [address] Anemia, unspecified Social History Tobacco Use Types [...] AM EST) WBC 6.4 4.8 - 10.8 K/[facility] LAB HEMETOLOGY METHOD 08/29/2024 11:12 AM EST [facility] RBC 2.50(L) 4.50 - 5.50 M/[facility] LAB HEMETOLOGY METHOD 08/29/2024 11:12 AM EST [facility] Hemoglobin 6.6(L) 13.5 - 17.5 g/dL LAB HEMETOLOGY METHOD 08/29/2024 11:12 AM [facility] Hematocrit 22.9(L) 42.0 - 54.0 % LAB HEMETOLOGY METHOD 08/29/2024 11:12 AM [facility] MCV 93.5 79.0 - 98.0 FL LAB HEMETOLOGY METHOD 08/29/2024 11:12 AM [facility] MCH 26.9(L) 27.0 - 32.0 pcg LAB HEMETOLOGY METHOD 08/29/2024 11:12 AM [facility] MCHC 28.8(L) 32.0 - 37.0 g/dL LAB HEMETOLOGY METHOD 08/29/2024 11:12 AM [facility] RDW 18.0(H) 11.0 - 15.0 % LAB HEMETOLOGY METHOD 08/29/2024 11:12 AM [facility] Platelets 292 130 - 400 K/mcL LAB HEMETOLOGY METHOD 08/29/2024 11:12 AM [facility] MPV 9.3 7.0 - 11.0 FL LAB HEMETOLOGY METHOD 08/29/2024 11:12 AM [facility] NRBC 0.0 <1.0 % LAB HEMETOLOGY METHOD 08/29/2024 11:12 AM [facility] NRBC Absolute 0.00 <0.10 K/mcL LAB HEMETOLOGY METHOD 08/29/2024 11:12 AM [facility] Blood Venous blood specimen / Unknown Venipuncture / Unknown 08/29/2024 5:17 AM EST 08/29/2024 10:46 AM EST us Tabby Bledsoe MD LAB BLOOD ORDERABLES Fin al Result [facility] [address] [place] [address], documented in this encounter Visit Diagnoses Diagnosis Anemia, unspecified documented in this encounter Additional Health Concerns Infection Onset Date Last Indicated Resolved Time ESBL 06/22/2024 06/22/2024 documented as of this encounter Care Teams Equity Holder Relationship Specialty Start Date End Date Uday Sheehan MD [address] [place] [address] Dr [place]ast [place] PCP - General Legal Support Assistant 12/19/16 documented as of this encounter
--- OUTSIDE RECORDS SUMMARY | 2025-03-08 21:08 | XMS_ITS | Encounter Summary ---
Author Organization [facility] Address [address] [place] [address] Care Team Providers Care Battery Test Engineer Name Role Phone Uday Sheehan Primary Care Provider [phone] Encounter Details Date Type Department Care Team (Late st Contact Info) Description 05/06/2024 Lab Requisition [facility] Lab [address] [place] [address] Salo Whyte MD [address] [place] [address] Acute and chronic respiratory failure with hypoxia; [...] - 10.8 10*3/uL 05/06/2024 11:12 AM EDT [facility] RBC 3.04(L) 4.70 - 6.10 10*6/uL 05/06/2024 11:12 AM EDT [facility] Hemoglobin 8.4(L) 13.7 - 16.5 g/dL 05/06/2024 11:12 AM EDT [facility] Hematocrit 26.9(L) 40.5 - 48.5 % 05/06/2024 11:12 AM EDT [facility] MCV 88.5 80.0 - 94.0 fL 05/06/2024 11:12 AM EDT [facility] MCH 27.6 26.0 - 34.0 pg 05/06/2024 11:12 AM EDT [facility] MCHC 31.2 31.0 - 36.0 g/dL 05/06/2024 11:12 AM EDT [facility] RDW 16.8(H) 12.0 - 15.0 % 05/06/2024 11:12 AM EDT [facility] RDW Standard Deviation 53.7(H) 35.1 - 43.9 fL 05/06/2024 11:12 AM EDT [facility] Platelets 179 140 - 440 10*3/uL 05/06/2024 11:12 AM EDT [facility] MPV 10.3 9.4 - 12.4 fL 05/06/2024 11:12 AM EDT [facility] Neutrophil % 55.7 50.0 - 75.0 % 05/06/2024 11:12 AM EDT [facility] Immature Grans % 0.3 0.0 - 0.9 % 05/06/2024 11:12 AM EDT [facility] Lymphocyte % 25.6 20.0 - 44.0 % 05/06/2024 11:12 AM EDT [facility] Monocyte % 12.2 0.0 - 14.0 % 05/06/2024 11:12 AM EDT [facility] Eosinophil % 5.7(H) 0.0 - 5.0 % 05/06/2024 11:12 AM EDT [facility] Basophil % 0.5 0.0 - 2.0 % 05/06/2024 11:12 AM EDT [facility] Neutrophil # 3.24 1.80 - 7.70 10*3/uL 05/06/2024 11:12 AM EDT [facility] Immature Grans # <0.03 0.00 - 0.03 10*3/uL 05/06/2024 11:12 AM EDT [facility] Lymphocyte # 1.50 1.00 - 4.75 10*3/uL 05/06/2024 11:12 AM EDT [facility] Monocyte # 0.70 0.00 - 6.00 10*3/uL 05/06/2024 11:12 AM EDT [facility] Eosinophil # 0.30 0.00 - 0.80 10*3/uL 05/06/2024 11:12 AM EDT [facility] Basophil # <0.03 0.00 - 0.20 10*3/uL 05/06/2024 11:12 AM EDT [facility] nRBC % 0.0 0 - 0 /100 WBCs 05/06/2024 11:12 AM EDT [facility] nRBC # <0.01 0.00 - 0.13 10*3/uL 05/06/2024 11:12 AM EDT [facility] Blood Structure of peripheral vein / Unknown Venipuncture / Unknown 05/06/2024 10:36 AM EDT 05/06/2024 10:36 AM EDT Salo Whyte MD LAB BLOOD ORDERABLES Final Result [facility] [address] [place] [address], * (ABNORMAL) Comprehensive Metabolic Panel (05/06/2024 10:36 AM EDT) NA 143 136 - 145 mmol/L 05/06/2024 11:24 AM EDT [facility] K 3.6 3.5 - 5.1 mmol/L 05/06/2024 11:24 AM EDT [facility] Cl 103 98 - 109 mmol/L 05/06/2024 11:24 AM EDT [facility] CO2 29 22 - 32 mmol/L 05/06/2024 11:24 AM EDT [facility] Anion Gap 15 >=0 05/06/2024 11:24 AM EDT [facility] Glucose 93 60 - 99 mg/dL 05/06/2024 11:24 AM EDT [facility] Creatinine 1.63(H) 0.50 - 1.12 mg/dL 05/06/2024 11:24 AM EDT [facility] Calcium 9.2 8.4 - 10.4 mg/dL 05/06/2024 11:24 AM EDT [facility] Total Protein 6.2(L) 6.6 - 8.7 g/dL 05/06/2024 11:24 AM EDT [facility] Albumin 3.0(L) 3.5 - 5.0 g/dL 05/06/2024 11:24 AM EDT [facility] Bilirubin, Total 0.3 0.2 - 1.2 mg/dL 05/06/2024 11:24 AM EDT [facility] Alkaline Phosphatase 102 40 - 129 U/L 05/06/2024 11:24 AM EDT [facility] AST 31 0 - 40 U/L 05/06/2024 11:24 AM EDT [facility] ALT 35 <=41 U/L 05/06/2024 11:24 AM EDT [facility] BUN 35(H) 8 - 23 mg/dL 05/06/2024 11:24 AM EDT [facility] eGFR 41(L) >=60 mL/min/1. 73m2 05/06/2024 11:24 AM EDT [facility] Comment:The [...] - 4.2 g/dL 05/06/2024 11:24 AM EDT [facility] A/G Ratio 0.9(L) 1.5 - 3.0 05/06/2024 11:24 AM EDT [facility] Blood Structure of peripheral vein / Unknown Venipuncture / Unknown 05/06/2024 10:36 AM EDT 05/06/2024 10:36 AM EDT Salo Whyte MD LAB BLOOD ORDERABLES Final Result [facility] [address] [place] [address] [address] [place] [address], documented in this encounter Visit Diagnoses Diagnosis Acute and chronic respiratory failure with hypoxia (HCC) No diagnosis documented in this encounter Additional Health Concerns Infection Onset Date Last Indicated Resolved Time 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
--- OUTSIDE RECORDS SUMMARY | 2025-03-08 21:08 | XMS_ITS | Encounter Summary ---
Author Organization [facility] Address [address] [place] [address] Care Team Providers Care Mold Shop Supervisor Name Role Phone Uday Sheehan MD Primary Care Provider [phone] Encounter Details Date Type Department Care Team (Late st Contact Info) Description 10/27/2024 Lab Requisition [facility] - Main Lab [address] [facility] [place] [address] Tabby Bledsoe MD [address] [address] Bacteremia Social History Tobacco Use Types Packs/Day [...] as of this encounter Care Teams Mold Shop Supervisor Relationship Specialty Start Date End Date Uday Sheehan MD [address] [place] [address] PCP - General Finance And Administration Manager 12/19/16 documented as of this encounter
--- OUTSIDE RECORDS SUMMARY | 2025-03-08 21:08 | XMS_ITS | Encounter Summary ---
Author Organization [facility] Address [address] [place] [address] Care Team Providers Care Operating Table Assembler Name Role Phone Uday Sheehan Primary Care Provider [phone] Encounter Details Date Type Department Care Team (Late st Contact Info) Description 03/24/2024 Lab Requisition [facility] Lab [address] [place] [address] Cecilio Bautista PA [address] [place] [address] Acute respiratory failure with hypoxia; No diagnosis [...] of this encounter Procedures * Due to [employer] law, this organization might not be sharing negative HIV tests. Procedure Name Priority Date/Time Associated Diagnosis Comments CBC AUTO DIFFERENTIAL Routine 03/24/2024 7:34 AM EDT Acute respiratory failure with hypoxia (HCC) No diagnosis documented in this encounter Results * Due to [employer] law, this organization might not be sharing negative HIV tests. * (ABNORMAL) CBC Auto Differential (03/24/2024 7:34 AM EDT) [facility] WBC 9.2 4.8 - 10.8 10*3/uL 03/24/2024 10:37 AM EDT [facility] RBC 2.51(L) 4.70 - 6.10 10*6/uL 03/24/2024 10:37 AM EDT [facility] Hemoglobin 7.0(L) 13.7 - 16.5 g/dL 03/24/2024 10:37 AM EDT [facility] Hematocrit 22.5(L) 40.5 - 48.5 % 03/24/2024 10:37 AM EDT [facility] MCV 89.6 80.0 - 94.0 fL 03/24/2024 10:37 AM EDT [facility] MCH 27.9 26.0 - 34.0 pg 03/24/2024 10:37 AM EDT [facility] MCHC 31.1 31.0 - 36.0 g/dL 03/24/2024 10:37 AM EDT [facility] RDW 16.0(H) 12.0 - 15.0 % 03/24/2024 10:37 AM EDT [facility] RDW Standard Deviation 51.7(H) 35.1 - 43.9 fL 03/24/2024 10:37 AM EDT [facility] Platelets 186 140 - 440 10*3/uL 03/24/2024 10:37 AM EDT [facility] MPV 10.3 9.4 - 12.4 fL 03/24/2024 10:37 AM EDT [facility] Neutrophil % 59.1 50.0 - 75.0 % 03/24/2024 10:37 AM EDT [facility] Immature Grans % 0.3 0.0 - 0.9 % 03/24/2024 10:37 AM EDT [facility] Lymphocyte % 19.6(L) 20.0 - 44.0 % 03/24/2024 10:37 AM EDT [facility] Monocyte % 15.5(H) 0.0 - 14.0 % 03/24/2024 10:37 AM EDT [facility] Eosinophil % 4.8 0.0 - 5.0 % 03/24/2024 10:37 AM EDT [facility] Basophil % 0.7 0.0 - 2.0 % 03/24/2024 10:37 AM EDT [facility] Neutrophil # 5.45 1.80 - 7.70 10*3/uL 03/24/2024 10:37 AM EDT [facility] Immature Grans # 0.03 0.00 - 0.03 10*3/uL 03/24/2024 10:37 AM EDT [facility] Lymphocyte # 1.80 1.00 - 4.75 10*3/uL 03/24/2024 10:37 AM EDT [facility] Monocyte # 1.40 0.00 - 6.00 10*3/uL 03/24/2024 10:37 AM EDT [facility] Eosinophil # 0.40 0.00 - 0.80 10*3/uL 03/24/2024 10:37 AM EDT [facility] Basophil # 0.10 0.00 - 0.20 10*3/uL 03/24/2024 10:37 AM EDT [facility] nRBC % 0.0 0 - 0 /100 WBCs 03/24/2024 10:37 AM EDT [facility] nRBC # <0.01 0.00 - 0.13 10*3/uL 03/24/2024 10:37 AM EDT [facility] Blood Structure of peripheral vein / Unknown Venipuncture / Unknown 03/24/2024 7:34 AM EDT 03/24/2024 10:31 AM EDT us Cecilio ZHU LAB BLOOD ORDERABLES Final R esult [facility] [address] [facility] [address] [place] [address], [place] [phone] documented in this encounter Visit Diagnoses Diagnosis [...] documented as of this encounter Care Teams Operating Table Assembler Relationship Specialty Start Date End Date Uday Sheehan [address] [place] [address] dr Donna [place], [place] [address] PCP - General Internal Medicine 03/27/24 documented as of this encounter
--- OUTSIDE RECORDS SUMMARY | 2025-03-08 21:08 | XMS_ITS | Encounter Summary ---
Author Organization [facility] Address [address] [place] [address] Care Team Providers Care Wall Covering Contractor Name Role Phone Uday Sheehan Primary Care Provider [phone] Encounter Details Date Type Department Care Team (Late st Contact Info) Description 03/27/2024 Lab Requisition [facility] Lab [address] [place] [address] Lidia Barry, CB [address] [place] [address] Acute and chronic respiratory failure with hypoxia; [...] - 75 % 03/27/2024 9:04 AM EDT [facility] Lymphocyte %, Manual 33 33 - 54 % 03/27/2024 9:04 AM EDT [facility] Monocyte %, Manual 10 0 - 14 % 03/27/2024 9:04 AM EDT [facility] Eosinophil %, Manual 3 0 - 5 % 03/27/2024 9:04 AM EDT [facility] Basophil %, Manual 0 0 - 2 % 03/27/2024 9:04 AM EDT [facility] Plasma Cells % 1(H) 0 % 03/27/2024 9:04 AM EDT [facility] Total Neutrophil #, Manual 4.13 1.80 - 7.70 10*3/uL 03/27/2024 9:04 AM EDT [facility] Total Lymph #, Manual 2.57 1.00 - 4.75 10*3/uL 03/27/2024 9:04 AM EDT [facility] Monocyte #, Manual 0.78 0.00 - 6.00 10*3/uL 03/27/2024 9:04 AM EDT [facility] Eosinophil #, Manual 0.23 0.00 - 0.80 10*3/uL 03/27/2024 9:04 AM EDT [facility] Basophil #, Manual 0.00 0.00 - 0.20 10*3/uL 03/27/2024 9:04 AM EDT [facility] Plasma Cell # 0.08(H) 0.00 10*3/uL 09/18/202 4 9:04 AM EDT [facility] Platelet Estimate Adequate Adequate 03/27/2024 9:04 AM EDT [facility] Clumped Platelets Present(A) Not Present 03/27/2024 9:04 AM EDT [facility] RBC Morphology Present(A) Normal, No clinically significant RBC morphology present (ICSH guidelines, 2015). 03/27/2024 9:04 AM EDT [facility] Polychromasia 1+(A) Not Present 03/27/2024 9:04 AM EDT [facility] Ovalocytes 1+(A) Not Present 03/27/2024 9:04 AM EDT [facility] [place] Cells 1+(A) Not Present 03/27/2024 9:04 AM EDT [facility] Total Cells Counted 116 03/27/2024 9:04 AM EDT [facility] Blood Structure of peripheral vein / Unknown Venipuncture / Unknown 03/27/2024 8:19 AM EDT 03/27/2024 8:19 AM EDT us Lidia Barry MANAGER OF APPLICATIONS DEVELOPMENT LAB BLOOD ORDERABLES Final R esult Performing Organization Address City/State/[facility] Co de Phone Number [facility] [address] [place] [id number], * (ABNORMAL) CBC Auto Differential (03/27/2024 8:19 AM EDT) WBC 7.8 4.8 - 10.8 10*3/uL 03/27/2024 9:04 AM EDT [facility] RBC 3.02(L) 4.70 - 6.10 10*6/uL 03/27/2024 9:04 AM EDT [facility] Hemoglobin 8.4(L) 13.7 - 16.5 g/dL 03/27/2024 9:04 AM EDT [facility] Hematocrit 25.7(L) 40.5 - 48.5 % 03/27/2024 9:04 AM EDT [facility] MCV 85.1 80.0 - 94.0 fL 03/27/2024 9:04 AM EDT [facility] Comment:REVIEWED MCH 27.8 26.0 - 34.0 pg 03/27/2024 9:04 AM EDT [facility] MCHC 32.7 31.0 - 36.0 g/dL 03/27/2024 9:04 AM EDT [facility] RDW 16.2(H) 12.0 - 15.0 % 03/27/2024 9:04 AM EDT [facility] RDW Standard Deviation 48.9(H) 35.1 - 43.9 fL 03/27/2024 9:04 AM EDT [facility] Platelets 192 140 - 440 10*3/uL 03/27/2024 9:04 AM EDT [facility] MPV 10.5 9.4 - 12.4 fL 03/27/2024 9:04 AM EDT [facility] nRBC % 0.0 0 - 0 /100 WBCs 03/27/2024 9:04 AM EDT [facility] nRBC # <0.01 0.00 - 0.13 10*3/uL 03/27/2024 9:04 AM EDT [facility] Blood Structure of peripheral vein / Unknown Venipuncture / Unknown 03/27/2024 8:19 AM EDT 03/27/2024 8:19 AM EDT Lidia Barry MANAGER OF APPLICATIONS DEVELOPMENT LAB BLOOD ORDERABLES Final R esult [facility] [address] [facility] [address] [place] [address], * (ABNORMAL) Comprehensive Metabolic Panel (03/27/2024 8:19 AM EDT) NA 139 136 - 145 mmol/L 03/27/2024 9:02 AM EDT [facility] K 03/27/2024 9:02 AM EDT [facility] Comment:Unable to result due to Hemolysis Cl 99 98 - 109 mmol/L 03/27/2024 9:02 AM EDT [facility] CO2 32 23 - 32 mmol/L 03/27/2024 9:02 AM EDT [facility] Anion Gap 03/27/2024 9:02 AM EDT [facility] Comment:Unable to result due to Hemolysis Glucose 121(H) 60 - 99 mg/dL 03/27/2024 9:02 AM EDT [facility] Creatinine 0.88 0.50 - 1.12 mg/dL 03/27/2024 9:02 AM EDT [facility] Calcium 8.8 8.4 - 10.4 mg/dL [facility] Total Protein 6.6 6.6 - 8.7 g/dL 03/27/2024 9:02 AM [facility] Albumin 2.8(L) 3.5 - 5.0 g/dL 03/27/2024 [facility] Bilirubin, Total 0.4 0.2 - 1.2 mg/dL 03/27/2024 [facility] Alkaline Phosphatase 89 40 - 129 U/L 03/27/2024 9:02 AM [facility] AST 03/27/2024 [facility] Comment:Unable to result due to Hemolysis ALT 03/27/2024 [facility] Comment:Unable to result due to Hemolysis BUN 17 8 - 23 mg/dL 03/27/2024 [facility] eGFR 85 >=60 mL/min/1. 73m2 03/27/2024 9[facility] Comment:The estimated glomer ular filtration [...] - 4.2 g/dL 03/27/2024 9:02 AM EDT [facility] A/G Ratio 0.7(L) 1.5 - 3.0 03/27/2024 9:02 AM EDT [facility] Blood Structure of peripheral vein / Unknown Venipuncture / Unknown 03/27/2024 8:19 AM EDT 03/27/2024 8:19 AM EDT us Lidia Barry MANAGER OF APPLICATIONS DEVELOPMENT LAB BLOOD ORDERABLES Final R esult Performing Organization Address City/State/[facility] Co de Phone Number [facility] [address] [place] [address], documented in this encounter Visit Diagnoses Diagnosis [...] documented as of this encounter Care Teams Wall Covering Contractor Relationship Specialty Start Date End Date Uday Sheehan [address] [place] [address] [place] [address] PCP - General Internal Medicine 03/27/24 documented as of this encounter
--- OUTSIDE RECORDS SUMMARY | 2025-03-08 21:08 | XMS_ITS | Encounter Summary ---
Author Organization [facility] Address [address] [place] [address] Care Team Providers Care Trailer Steerer Name Role Phone Uday Sheehan MD Primary Care Provider [phone] Encounter Details Date Type Department Care Team (Late st Contact Info) Description 08/24/[address] [facility] Lab [address] [facility] [place] [address] Tabby Bledsoe MD [address] [facility] [address] [place], [place] [id number] Bacteremia; Heart failure, unspecified (CMS/HCC V24, CMS/HCC [...] (ABNORMAL) Prealbumin (08/26/2024 7:46 AM EST) Pathologist [facility] Prealbumin 9(L) 18 - 45 mg/dL LAB CHEMISTRY METHOD 08/26/2024 11:01 AM [facility] Blood Venous blood specimen / Unknown Venipuncture / Unknown 08/26/2024 7:46 AM EST 08/26/2024 10:11 AM EST us Tabby Bledsoe MD LAB BLOOD ORDERABLES Fin al Result [facility] [address] [place] [address], [place] [phone] * (ABNORMAL) Comprehensive metabolic panel (08/26/2024 7:46 AM EST) [facility] Sodium 139 133 - 145 mmol/L [...] refit without adjustment for race. BUN/Creatinine Ratio 16.8 LAB [...] al Result [facility] [address] [place] [address], * (ABNORMAL) Complete blood count (08/26/2024 7:46 AM EST) [facility] WBC 5.9 4.8 - 10.8 K/mcL [...] 10:37 AM [facility] NRBC Absolute 0.00 <0.10 K/mcL LAB HEMETOLOGY METHOD 08/26/2024 10:37 AM EST [facility] Blood Venous blood specimen / Unknown Venipuncture / Unknown 08/26/2024 7:46 AM EST 08/26/2024 10:11 AM EST us Tabby Bledsoe MD LAB BLOOD ORDERABLES Fin al Result [facility] [address] [place] [address], documented in this encounter Visit Diagnoses Diagnosis Bacteremia Heart failure, unspecified (CMS/HCC V24, CMS/HCC V28) Heart failure, unspecified Pressure ulcer of unspecified site, unspecified stage documented in this encounter Additional Health Concerns Infection Onset Date Last Indicated Resolved Time ESBL 06/22/2024 06/22/2024 documented as of this encounter Care Teams Trailer Steerer Relationship Specialty Start Date End Date Uday Sheehan MD [address] [place] [address] Dr Donna [place] PCP - General Lining Mechanic 12/19/16 documented as of this encounter
--- OUTSIDE RECORDS SUMMARY | 2025-03-08 21:09 | XMS_ITS | Encounter Summary ---
Author Organization [facility] Address [address] [place] [address] Care Team Providers Care Well Digger Name Role Phone Uday Sheehan MD Primary Care Provider [phone] Encounter Details Date Type Department Care Team (Late st Contact Info) Description 06/21/2024 Lab Requisition [facility] - Main Lab [address] [place] [address] Zak Zuluaga MD [address] [place] [address] Unspecified kidney failure; COVID-19 Social History Tobacco [...] LAB CHEMISTRY METHOD 06/21/2024 11:17 AM EST [facility] Potassium 4.3 3.5 - 5.5 mmol/L LAB CHEMISTRY METHOD 06/21/2024 11:17 AM EST [facility] Chloride 114(H) 96 - 110 mmol/L LAB CHEMISTRY METHOD 06/21/2024 11:17 AM [facility] CO2 23 21 - 32 mmol/L LAB CHEMISTRY METHOD 06/21/2024 11:17 AM [facility] Anion Gap 10 3 - 11 LAB CHEMISTRY METHOD 06/21/2024 11:17 AM [facility] Glucose 90 70 - 100 mg/dL LAB CHEMISTRY METHOD 06/21/2024 11:17 AM [facility] BUN 65(H) 5 - 25 mg/dL LAB CHEMISTRY METHOD 06/21/2024 11:17 AM [facility] Creatinine 3.53(H) 0.70 - 1.30 mg/dL LAB CHEMISTRY METHOD 06/21/2024 11:17 AM [facility] eGFR 16(L) >=60 mL/min/1. 73m2 LAB CHEMISTRY METHOD 06/21/2024 11:17 AM [facility] Comment:Calculation based on the Chronic Kidney Disease Epidemiology Collaboration (CKD-EPI) equation refit without adjustment for race. BUN/Creatinine Ratio 18.4 LAB CHEMISTRY METHOD 06/21/2024 11:17 AM [facility] Calcium 8.5 8.5 - 10.5 mg/dL LAB CHEMISTRY METHOD 06/21/2024 11:17 AM [facility] Blood Venous blood specimen / Unknown Venipuncture / Unknown 06/21/2024 6:57 AM EST 06/21/2024 9:08 AM EST us Zak Zuluaga MD LAB BLOOD ORDERABLES Final Resul t [facility] [address] [place] [address], documented in this encounter Visit Diagnoses Diagnosis Unspecified kidney failure COVID-19 documented in this encounter Additional Health Concerns Infection Onset Date Last Indicated Resolved Time ESBL 06/22/2024 06/22/2024 documented as of this encounter Care Teams Well Digger Relationship Specialty Start Date End Date Uday Sheehan MD [address] [facility] [address] Donna [place] PCP - General Entry Level Programmer 12/19/16 documented as of this encounter
--- OUTSIDE RECORDS SUMMARY | 2025-03-08 21:09 | XMS_ITS | Encounter Summary ---
Author Organization [facility] Address [address] [place] [address] Phone Care Team Providers Care First Helper Name Role Phone Uday Sheehan MD Primary Care Provider [phone] Encounter Details Date Type Department Care Team (Late st Contact Info) Description 10/11/2021 Documentation Only [facility], [address] [place] [address] Adi Jaeger MD [address] [place] [address] Social History Tobacco Use Types [...] on filedocumented in this encounter Care Teams First Helper Relationship Specialty Start Date End Date Uday Sheehan MD [address] [facility] [place] PCP - General 05/14/19 documented as of this encounter
--- OUTSIDE RECORDS SUMMARY | 2025-03-08 21:09 | XMS_ITS | Encounter Summary ---
Author Organization [facility] Address [address] [place] [address] Care Team Providers Care Manager Mutual Fund Name Role Phone Uday Sheehan Primary Care Provider [phone] Encounter Details Date Type Department Care Team (Late st Contact Info) Description 05/28/2024 Lab Requisition [facility] [address] [place] [address] Valarie Pierson MD [address] [place] [address] Acute and chronic respiratory failure with hypoxia; [...] of this encounter Procedures * Due to [place] [employer] law, this organization might not be sharing negative HIV tests. Procedure Name Priority Date/Time Associated Diagnosis Comments TROPONIN T HIGH SENSITIVITY Routine 05/28/2024 2:28 PM EST Acute and chronic respiratory failure with hypoxia (HCC) No diagnosis documented in this encounter Results * Due to [place] [employer] law, this organization might not be sharing negative HIV tests. * (ABNORMAL) Troponin T, High Sensitivity (05/28/2024 2:28 PM EST) Troponin T High Sensitivity 35(H) 6 - 22 ng/L 05/28/2024 3:30 PM EST [facility] Comment: Gp-Mviirlus-P level of 52 ng/L or higher at [...] be evaluated in line with the 4th Jansen Definition of AMI. 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
--- OUTSIDE RECORDS SUMMARY | 2025-03-08 21:09 | XMS_ITS | Encounter Summary ---
Author Organization [facility] Address [address] [place] [address] Care Team Providers Care Addictions Counselor Name Role Phone Uday Sheehan MD Primary Care Provider [phone] Encounter Details Date Type Department Care Team (Late st Contact Info) Description 06/23/2024 Lab Requisition [facility] Main Lab [address] [place] [address] Pearl Garcia MD [address] [place] [address] Other retention of urine Social [...] reflex microscopic (06/22/2024 12:00 AM EST) Specific Nolan Urine 1.013 1.003 - 1.030 LAB URINALYSIS - AUTOMATED METHOD 06/23/2024 12:51 PM [facility] pH, Urine 6.0 5.0 - 8.0 pH LAB URINALYSIS - AUTOMATED METHOD 06/23/2024 12:51 PM [facility] Leukocytes, Urine Large(A) Negative LAB URINALYSIS - AUTOMATED METHOD 06/23/2024 12:51 PM [facility] Nitrite, Urine Negative Negative LAB URINALYSIS - AUTOMATED METHOD 06/23/2024 12:51 PM [facility] Protein, Urine 100(A) <=Trace mg/dL LAB URINALYSIS - AUTOMATED METHOD 06/23/2024 12:51 PM [facility] Glucose, Urine Negative Negative mg/dL LAB URINALYSIS - AUTOMATED METHOD 06/23/2024 12:51 PM [facility] Ketones, Urine Negative Negative mg/dL LAB URINALYSIS - AUTOMATED METHOD 06/23/2024 12:51 PM [facility] Urobilinogen , Urine 0.2 0.2 - 1.0 mg/dL LAB URINALYSIS - AUTOMATED METHOD 06/23/2024 12:51 PM [facility] Bilirubin, Urine Negative Negative LAB URINALYSIS - AUTOMATED METHOD 06/23/2024 12:51 PM [facility] Blood, Urine Large(A) Negative LAB URINALYSIS - AUTOMATED METHOD 06/23/2024 12:51 PM [facility] RBC, Urine 32.8(H) 0 - 4 /HPF LAB URINALYSIS - AUTOMATED METHOD 06/23/2024 12:51 PM [facility] WBC, Urine 3,850.2(H) 0 - 4 /HPF LAB URINALYSIS - AUTOMATED METHOD 06/23/2024 12:51 PM [facility] Squamous Epithelial, Urine 20 0 - 60 /LPF LAB URINALYSIS - AUTOMATED METHOD 06/23/2024 12:51 PM [facility] Bacteria, Urine Many(A) Negative /HPF [...] t [facility] [address] [place] [address], * (ABNORMAL) Culture urine (06/22/2024 12:00 AM EST) Culture, Urine >100,000 CFU/mL Klebsiella pneumoniae ESBL(A) [place] 06/26/2024 7:51 AM EST [facility] Comment: THIS ORGANISM IS POSITIVE FOR EXTENDED SPECTRUM BETA-LACTAMASE (ESBL). EXTENDED SPECTRUM BETA-LACTAMASE PRODUCING ORGANISMS DEMONSTRATE DECREASED ACTIVITY WITH PENICILLILNS, CEPHALOSPORINS [...] MICROBIOLOGY - GENERAL ORDER KINSEY Final Result 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
--- OUTSIDE RECORDS SUMMARY | 2025-03-08 21:09 | XMS_ITS | Encounter Summary ---
Author Organization [facility] Address [address] [place] [address] Phone Care Team Providers Care Grinder Brake Lining Name Role Phone Uday Sheehan MD Primary Care Provider [phone] Encounter Details Date Type Department Care Team (Late st Contact Info) Description 04/11/2022 Documentation Only [facility] [address] [place] [address] Adi Jaeger MD [address] [place] [address] [place] [address] Social History Tobacco Use Types [...] on filedocumented in this encounter Care Teams Grinder Brake Lining Relationship Specialty Start Date End Date Uday Sheehan MD [address] [place] [address] DR[address] [place] PCP - General 05/14/19 documented as of this encounter
--- OUTSIDE RECORDS SUMMARY | 2025-03-08 21:09 | XMS_ITS | Patient Health Record ---
Author Organization [facility] Address [address] [place] [address] Care Team Providers Care Printing Plate Clerk Name Role Phone Pearl Garcia Primary Care Provider Lucila Phillip Unavailable [phone] Reason For Referral No Information Encounters Encounter Location Date Provider Diagnosis [facility] [address] [place] [address] 08/08/2024 Lucila Kapoor Plan Of Treatment No Information Insurance Providers Payer Name Payer Address Payer Phone Subscriber Number Group Number Insured Name Patient Relationship to Insured Coverage Start Date Coverage End Date Medicare [employer] [facility] [address] [place] [address] [id number] [place] i Self - patient is the insured [employer] [address] [place] [address] [phone] [id number] [place] i Self - patient is the insured
--- OUTSIDE RECORDS SUMMARY | 2025-03-08 21:09 | XMS_ITS | Encounter Summary ---
Author Organization [facility] Address [address] [place] [address] Care Team Providers Care Job Molder Name Role Phone Uday Sheehan Primary Care Provider [phone] Encounter Details Date Type Department Care Team (Late st Contact Info) Description 04/22/2024 Lab Requisition [facility] [address] [place] [address] Salo Whyte MD [address] [place] [address] Acute and chronic respiratory failure with hypoxia; [...] - 4.200 uIU/mL 04/22/2024 10:11 AM EDT [facility] Blood Structure of peripheral vein / Unknown 04/22/2024 9:32 AM EDT 04/22/2024 9:33 AM EDT us Salo Whyte MD LAB BLOOD ORDERABLES Final Result Performing Organization Address City/State/[facility] Co de Phone Number [facility] [address] [place] [address] [address] [place] [address], [place] [phone] * T4, Free (04/22/2024 9:32 AM EDT) Free T4 1.25 0.80 - 1.80 ng/dL 04/22/2024 10:11 AM EDT [facility] Comment: Females: (ng/dL) First Trimester [...] Whyte MD LAB BLOOD ORDERABLES Final Result [facility] [address] [place] [address] [address] [place] [address], * (ABNORMAL) CBC Auto Differential (04/22/2024 9:32 AM EDT) WBC 5.8 4.8 - 10.8 10*3/uL 04/22/2024 9:53 AM EDT [facility] RBC 2.96(L) 4.70 - 6.10 10*6/uL 04/22/2024 9:53 AM EDT [facility] Hemoglobin 8.2(L) 13.7 - 16.5 g/dL 04/22/2024 9:53 AM EDT [facility] Hematocrit 25.7(L) 40.5 - 48.5 % 04/22/2024 9:53 AM EDT [facility] MCV 86.8 80.0 - 94.0 fL 04/22/2024 9:53 AM EDT [facility] MCH 27.7 26.0 - 34.0 pg 04/22/2024 9:53 AM EDT [facility] MCHC 31.9 31.0 - 36.0 g/dL 04/22/2024 9:53 AM EDT [facility] RDW 16.4(H) 12.0 - 15.0 % 04/22/2024 9:53 AM EDT [facility] RDW Standard Deviation 52.1(H) 35.1 - 43.9 fL 04/22/2024 9:53 AM EDT [facility] Platelets 182 140 - 440 10*3/uL 04/22/2024 9:53 AM EDT [facility] MPV 10.8 9.4 - 12.4 fL 04/22/2024 9:53 AM EDT [facility] Neutrophil % 57.5 50.0 - 75.0 % 04/22/2024 9:53 AM EDT [facility] Immature Grans % 0.2 0.0 - 0.9 % 04/22/2024 9:53 AM EDT [facility] Lymphocyte % 21.1 20.0 - 44.0 % 04/22/2024 9:53 AM EDT [facility] Monocyte % 15.7(H) 0.0 - 14.0 % 04/22/2024 9:53 AM EDT [facility] Eosinophil % 5.0 0.0 - 5.0 % 04/22/2024 9:53 AM EDT [facility] Basophil % 0.5 0.0 - 2.0 % 04/22/2024 9:53 AM EDT [facility] Neutrophil # 3.32 1.80 - 7.70 10*3/uL 04/22/2024 9:53 AM EDT [facility] Immature Grans # <0.03 0.00 - 0.03 10*3/uL 04/22/2024 9:53 AM EDT [facility] Lymphocyte # 1.20 1.00 - 4.75 10*3/uL 04/22/2024 9:53 AM EDT [facility] Monocyte # 0.90 0.00 - 6.00 10*3/uL 04/22/2024 9:53 AM EDT [facility] Eosinophil # 0.30 0.00 - 0.80 10*3/uL 04/22/2024 9:53 AM EDT [facility] Basophil # <0.03 0.00 - 0.20 10*3/uL 04/22/2024 9:53 AM EDT [facility] nRBC % 0.0 0 - 0 /100 WBCs 04/22/2024 9:53 AM EDT [facility] nRBC # <0.01 0.00 - 0.13 10*3/uL 04/22/2024 9:53 AM EDT [facility] Blood Structure of peripheral vein / Unknown 04/22/2024 9:32 AM EDT 04/22/2024 9:33 AM EDT us Salo Whyte MD LAB BLOOD ORDERABLES Final Result Performing Organization Address [facility] Co de Phone Number [facility] [address] [address], [place] [phone] * N-terminal ProBrain Natriuretic Peptide - [facility] & MEM/REJIV/Forrest Only (04/22/2024 9:32 AM EDT) Pro-B-Type Natriuretic Peptide 435 <=1,800 pg/mL 04/22/2024 10:42 AM EDT [facility] Comment: RULE IN CHF >/= [...] Final Result Performing Organization Address [facility] Co de Phone Number [facility] [address] [address], [place] [phone] * (ABNORMAL) Comprehensive Metabolic Panel (04/22/2024 9:32 AM EDT) NA 139 136 - 145 mmol/L 04/22/2024 10:11 AM EDT [facility] K 3.9 3.5 - 5.1 mmol/L 04/22/2024 10:11 AM EDT [facility] Cl 96(L) 98 - 109 mmol/L 04/22/2024 10:11 AM EDT [facility] CO2 33(H) 22 - 32 mmol/L 04/22/2024 10:11 AM T [facility] Anion Gap 14 >=0 04/22/2024 10:11 AM T [facility] Glucose 98 60 - 99 mg/dL 04/22/2024 10:11 AM EDT [facility] Creatinine 1.43(H) 0.50 - 1.12 mg/dL 04/22/2024 10:11 AM EDT [facility] Calcium 9.9 8.4 - 10.4 mg/dL 04/22/2024 10:11 AM T [facility] Total Protein 6.3(L) 6.6 - 8.7 g/dL 04/22/2024 10:11 AM [facility] Albumin 3.0(L) 3.5 - 5.0 g/dL 04/22/2024 10:11 AM [facility] Bilirubin, Total 0.4 0.2 - 1.2 mg/dL 04/22/2024 10:11 AM [facility] Alkaline Phosphatase 106 40 - 129 U/L 04/22/2024 10:11 AM [facility] AST 34 0 - 40 U/L 04/22/2024 10:11 AM [facility] ALT 30 <=41 U/L 04/22/2024 10:11 AM [facility] BUN 50(H) 8 - 23 mg/dL 04/22/2024 10:11 AM T [facility] eGFR 48(L) >=60 mL/min/1. 73m2 04/22/2024 10:11 AM [facility] Comment:The estimated glomer ular filtration rate [...] - 4.2 g/dL 04/22/2024 10:11 AM EDT [facility] A/G Ratio 0.9(L) 1.5 - 3.0 04/22/2024 10:11 AM EDT [facility] Blood Structure of peripheral vein / Unknown 04/22/2024 9:32 AM EDT 04/22/2024 9:33 AM EDT Salo Whyte MD LAB BLOOD ORDERABLES Final Result [facility] [address] [facility] [address] [place] [address], documented in this encounter Visit Diagnoses Diagnosis Acute and chronic respiratory failure with hypoxia (HCC) No diagnosis documented in this encounter Additional Health Concerns Infection Onset Date Last Indicated Resolved Time 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
--- OUTSIDE RECORDS SUMMARY | 2025-03-08 21:09 | XMS_ITS | Encounter Summary ---
Author Organization [facility] Address [address] [place] [address] Care Team Providers Care Solar Energy Systems Designer Name Role Phone Uday Sheehan Primary Care Provider [phone] Encounter Details Date Type Department Care Team (Late st Contact Info) Description 04/11/2024 Lab Requisition [facility] [address] [place] [address] Salo Whyte MD [address] [place] [address] Acute and chronic respiratory failure with hypoxia; [...] - 10.8 10*3/uL 04/11/2024 11:04 AM EDT [facility] RBC 2.95(L) 4.70 - 6.10 10*6/uL 04/11/2024 11:04 AM EDT [facility] Hemoglobin 8.0(L) 13.7 - 16.5 g/dL 04/11/2024 11:04 AM EDT [facility] Hematocrit 26.3(L) 40.5 - 48.5 % 04/11/2024 11:04 AM EDT [facility] MCV 89.2 80.0 - 94.0 fL 04/11/2024 11:04 AM EDT [facility] MCH 27.1 26.0 - 34.0 pg 04/11/2024 11:04 AM EDT [facility] MCHC 30.4(L) 31.0 - 36.0 g/dL 04/11/2024 11:04 AM EDT [facility] RDW 17.3(H) 12.0 - 15.0 % 04/11/2024 11:04 AM EDT [facility] RDW Standard Deviation 54.4(H) 35.1 - 43.9 fL 04/11/2024 11:04 AM EDT [facility] Platelets 226 140 - 440 10*3/uL 04/11/2024 11:04 AM EDT [facility] MPV 10.2 9.4 - 12.4 fL 04/11/2024 11:04 AM EDT [facility] Neutrophil % 62.6 50.0 - 75.0 % 04/11/2024 11:04 AM EDT [facility] Immature Grans % 0.8 0.0 - 0.9 % 04/11/2024 11:04 AM EDT [facility] Lymphocyte % 21.4 20.0 - 44.0 % 04/11/2024 11:04 AM EDT [facility] Monocyte % 10.4 0.0 - 14.0 % 04/11/2024 11:04 AM EDT [facility] Eosinophil % 4.3 0.0 - 5.0 % 04/11/2024 11:04 AM EDT [facility] Basophil % 0.5 0.0 - 2.0 % 04/11/2024 11:04 AM EDT [facility] Neutrophil # 5.02 1.80 - 7.70 10*3/uL 04/11/2024 11:04 AM EDT [facility] Immature Grans # 0.06(H) 0.00 - 0.03 10*3/uL 04/11/2024 11:04 AM EDT [facility] Lymphocyte # 1.70 1.00 - 4.75 10*3/uL 04/11/2024 11:04 AM EDT [facility] Monocyte # 0.80 0.00 - 6.00 10*3/uL 04/11/2024 11:04 AM EDT [facility] Eosinophil # 0.30 0.00 - 0.80 10*3/uL 04/11/2024 11:04 AM EDT [facility] Basophil # <0.03 0.00 - 0.20 10*3/uL 04/11/2024 11:04 AM EDT [facility] nRBC % 0.0 0 - 0 /100 WBCs 04/11/2024 11:04 AM EDT [facility] nRBC # <0.01 0.00 - 0.13 10*3/uL 04/11/2024 11:04 AM EDT [facility] Blood Structure of peripheral vein / Unknown Venipuncture / Unknown 04/11/2024 10:41 AM EDT 04/11/2024 10:41 AM EDT Salo Whyte MD LAB BLOOD ORDERABLES Final Result [facility] [address] [facility] [address] [place] [address], * (ABNORMAL) Basic Metabolic Panel (04/11/2024 10:41 AM EDT) NA 141 136 - 145 mmol/L 04/11/2024 11:19 AM EDT [facility] K 3.8 3.5 - 5.1 mmol/L 04/11/2024 11:19 AM EDT [facility] Cl 100 98 - 109 mmol/L 04/11/2024 11:19 AM EDT [facility] CO2 32 22 - 32 mmol/L 04/11/2024 11:19 AM EDT [facility] BUN 45(H) 8 - 23 mg/dL 04/11/2024 11:19 AM EDT [facility] Creatinine 1.10 0.50 - 1.12 mg/dL 04/11/2024 11:19 AM EDT [facility] Glucose 106(H) 60 - 99 mg/dL 04/11/2024 11:19 AM EDT [facility] Calcium 9.3 8.4 - 10.4 mg/dL 04/11/2024 11:19 AM EDT [facility] Anion Gap 13 >=0 04/11/2024 11:19 AM EDT [facility] eGFR 66 >=60 mL/min/1. 73m2 04/11/2024 11:19 AM EDT [facility] Comment:The estimated glomer [...] LAB BLOOD ORDERABLES Final Result [facility] [address] [facility] [address] [place] [address], documented in this encounter Visit Diagnoses Diagnosis Acute and chronic respiratory failure with hypoxia (HCC) No diagnosis documented in this encounter Additional Health Concerns Infection Onset Date Last Indicated Resolved Time Multidrug resistant organisms MRSA 03/25/20242023 documented as of this encounter Care Teams Solar Energy Systems Designer Relationship Specialty Start Date End Date Uday Sheehan [address] [place] [address] [place] [address] PCP - General Internal Medicine 03/27/24 documented as of this encounter
--- OUTSIDE RECORDS SUMMARY | 2025-03-08 21:09 | XMS_ITS | Clinical Summary ---
Author Organization [facility] Address [address] [place] [address] Care Team Providers Care Botany Technician Name Role Phone Uday Sheehan Primary Care Provider [phone] Allergies No known active allergies Medications acetaminophen [...] by mouth every 12 hours. 04/08/20 Active [id number] soeth-mw-msk (VIDHYA WITH COLLAGEN) 7-7-1.5 gram powder in [...] WBC of 7.4. - [facility] PEG (percutaneous endoscopic gastrostomy) status 03/28/2024 [...] consolidation LLL. O2 increased to 50% per CITRUS PEELER: plugging secretions but not clogged at that [...] consolidation LLL. O2 increased to 50% per [employer] PEELER: plugging secretions but not clogged at that [...] 64 04/08/2024 2:00 PM EDT Temperature 36.6 C (97.9 F) 04/08/2024 2:00 PM EDT Respiratory Rate 28 04/08/2024 2:00 PM EDT [...] 75+ series) 02/15/2015 COVID-19 Vaccine (1 - season) 2024 Alcohol/Substance Use Screening 07/10/2024 Depression Screening and Follow-Up 07/10/2024 Health Care Proxy Review 07/10/2024 Social Drivers of Health Annual Screening 07/10/2024 Basic Metabolic Panel 11/24/2024 05/27/2024 , 05/23/2024, 05/20/2024, Additional history exists Influenza Vaccine (#1) 2025 04/08/2024 Phosphorus 04/08/2025 04/08/2024, 03/11, 04/06/2024, Additional history exists Hemoglobin 05/27/2025 05/27/2024, 05/10, 05/20/2024, Additional history exists Hepatitis B Vaccines Aged Out No long er eligible based on patient's age to complete this topic Procedures * Due to [place] state law, [...] to Health Maintenance Results * Due to [place] state law, this organization might not be sharing negative HIV tests. * (ABNORMAL) CBC Auto Differential (05/27/2024 10:09 AM EST) WBC 6.1 4.8 - 10.8 10*3/uL 05/27/2024 10:58 AM EST [facility] RBC 3.05(L) 4.70 - 6.10 10*6/uL 05/27/2024 10:58 AM EST [facility] Hemoglobin 8.4(L) 13.7 - 16.5 g/dL 05/27/2024 10:58 AM EST [facility] Hematocrit 26.6(L) 40.5 - 48.5 % 05/27/2024 10:58 AM EST [facility] MCV 87.2 80.0 - 94.0 fL 05/27/2024 10:58 AM EST [facility] MCH 27.5 26.0 - 34.0 pg 05/27/2024 10:58 AM EST [facility] MCHC 31.6 31.0 - 36.0 g/dL 05/27/2024 10:58 AM EST [facility] RDW 17.0(H) 12.0 - 15.0 % 05/27/2024 10:58 AM EST [facility] RDW Standard Deviation 54.3(H) 35.1 - 43.9 fL 05/27/2024 10:58 AM EST [facility] Platelets 147 140 - 440 10*3/uL 05/27/2024 10:58 AM EST [facility] MPV 10.1 9.4 - 12.4 fL 05/27/2024 10:58 AM EST [facility] Neutrophil % 57.4 50.0 - 75.0 % 05/27/2024 10:58 AM EST [facility] Immature Grans % 0.3 0.0 - 0.9 % 05/27/2024 10:58 AM EST [facility] Lymphocyte % 23.7 20.0 - 44.0 % 05/27/2024 10:58 AM EST [facility] Monocyte % 12.7 0.0 - 14.0 % 05/27/2024 10:58 AM EST [facility] Eosinophil % 5.6(H) 0.0 - 5.0 % 05/27/2024 10:58 AM EST [facility] Basophil % 0.3 0.0 - 2.0 % 05/27/2024 10:58 AM EST [facility] Neutrophil # 3.51 1.80 - 7.70 10*3/uL 05/27/2024 10:58 AM EST [facility] Immature Grans # <0.03 0.00 - 0.03 10*3/uL 05/27/2024 10:58 AM EST [facility] Lymphocyte # 1.50 1.00 - 4.75 10*3/uL 05/27/2024 10:58 AM EST [facility] Monocyte # 0.80 0.00 - 6.00 10*3/uL 05/27/2024 10:58 AM EST [facility] Eosinophil # 0.30 0.00 - 0.80 10*3/uL 05/27/2024 10:58 AM EST [facility] Basophil # <0.03 0.00 - 0.20 10*3/uL 05/27/2024 10:58 AM EST [facility] nRBC % 0.0 0 - 0 /100 WBCs 05/27/2024 10:58 AM EST [facility] nRBC # <0.01 0.00 - 0.13 10*3/uL 05/27/2024 10:58 AM EST [facility] Blood Structure of peripheral vein / Unknown Venipuncture / Unknown 05/27/2024 10:09 AM EST 05/27/2024 10:10 AM EST us Salo Whyte MD LAB BLOOD ORDERABLES Final Result Performing Organization Address City/State/[facility] Co de Phone Number [facility] [address] [place] [address] [address] [place] [address], [place] [phone] * (ABNORMAL) Comprehensive Metabolic Panel (05/27/2024 10:09 AM EST) NA 142 136 - 145 mmol/L 05/27/2024 11:11 AM EST [facility] K 3.9 3.5 - 5.1 mmol/L 05/27/2024 11:11 AM EST [facility] Cl 104 98 - 109 mmol/L 05/27/2024 11:11 AM EST [facility] CO2 30 22 - 32 mmol/L 05/27/2024 11:11 AM EST [facility] Anion Gap 12 >=0 05/27/2024 11:11 AM EST [facility] Glucose 99 60 - 99 mg/dL 05/27/2024 11:11 AM EST [facility] Creatinine 1.71(H) 0.50 - 1.12 mg/dL 05/27/2024 11:11 AM EST [facility] Calcium 9.4 8.4 - 10.4 mg/dL 05/27/2024 11:11 AM [facility] Total Protein 6.0(L) 6.6 - 8.7 g/dL 05/27/2024 11:11 AM EST [facility] Albumin 2.9(L) 3.5 - 5.0 g/dL 05/27/2024 11:11 AM EST [facility] Bilirubin, Total 0.3 0.2 - 1.2 mg/dL 05/27/2024 11:11 AM EST [facility] Alkaline Phosphatase 113 40 - 129 U/L 05/27/2024 11:11 AM EST [facility] AST 18 0 - 40 U/L 05/27/2024 11:11 AM EST [facility] ALT 12 <=41 U/L 05/27/2024 11:11 AM EST [facility] BUN 41(H) 8 - 23 mg/dL 05/27/2024 11:11 AM EST [facility] eGFR 39(L) >=60 mL/min/1. 73m2 05/27/2024 11:11 AM EST [facility] Comment:The estimated glomer ular filtration [...] - 4.2 g/dL 05/27/2024 11:11 AM EST [facility] A/G Ratio 0.9(L) 1.5 - 3.0 05/27/2024 11:11 AM EST [facility] Blood Structure of peripheral vein / Unknown Venipuncture / Unknown 05/27/2024 10:09 AM EST 05/27/2024 10:10 AM EST Salo Whyte MD LAB BLOOD ORDERABLES Final Result [facility] [address] [facility] [address] [place] [address], * Phosphorus (04/08/2024 5:21 AM EDT) Phosphorus 4.2 2.5 - 4.5 mg/dL 04/08/2024 5:46 AM EDT [facility] Blood Structure of peripheral vein / Unknown Venipuncture / Unknown 04/08/2024 5:21 AM EDT 04/08/2024 5:24 AM EDT Jori Longo NP LAB BLOOD ORDERABLES Fi nal Result [facility] [address] [place] [address], from Last 3 Months or Most Recently Relevant to Health Maintenance Additional Health Concerns Infection Onset Date Last Indicated Multidrug resistant organisms MRSA 03/25/2024 05/07/2024 Insurance [facility] MEDIC[facility] Advance Directives Documents on File Type Date Recorded Patient Air Control Electronics Operator Expl anation Health Care Proxy 03/31/2024 [...] [place] Daughter Next of Kin Care Teams Botany Technician Relationship Specialty Start Date End Date Uday Sheehan [address] [place] [address] [place] [address] PCP - General Internal Medicine 03/27/24
--- OUTSIDE RECORDS SUMMARY | 2025-03-08 21:09 | XMS_ITS | Encounter Summary ---
Author Organization [facility] Address [address] [place] [address] Care Team Providers Care Rn Document Improvement Specialist Name Role Phone Uday Sheehan MD Primary Care Provider [phone] Encounter Details Date Type Department Care Team (Late st Contact Info) Description 06/13/2024 Lab Requisition [facility] [address] [facility] [place] [address] Natanael Rodney MD [address] [place] [address] [place] [address] Anemia, unspecified Social [...] ORDERABLES Final Resu lt Performing Organization Address [facility]/ZIP Co de Phone Number [facility] [address] [place] [address], [place] [phone] * Free thyroxine with reflex to free triiodothyronine (06/13/2024 7:00 AM EST) Free T4 0.97 0.70 - 1.80 ng/dL LAB CHEMISTRY METHOD 06/13/2024 10:56 AM EST [facility] Blood Venous blood specimen / Unknown Venipuncture / Unknown 06/13/2024 7:00 AM EST 06/13/2024 8:28 AM EST us Natanael Rodney MD LAB BLOOD ORDERABLES Final Resu lt [facility] [address] [place] [address], [place] [phone] * (ABNORMAL) Thyroid stimulating hormone with reflex [...] Final Resu lt [facility] [address] [place] [address], [place] [phone] * (ABNORMAL) Comprehensive metabolic panel (06/13/2024 7:00 AM EST) Sodium 146(H) 133 - 145 mmol/L LAB CHEMISTRY METHOD 06/13/2024 10:23 AM [facility] Potassium 4.2 3.5 - 5.5 mmol/L LAB CHEMISTRY METHOD 06/13/2024 10:23 AM [facility] Chloride 115(H) 96 - 110 mmol/L LAB CHEMISTRY METHOD 06/13/2024 10:23 AM [facility] CO2 24 21 - 32 mmol/L LAB CHEMISTRY METHOD 06/13/2024 10:23 AM [facility] Anion Gap 7 3 - 11 LAB CHEMISTRY METHOD 06/13/2024 10:23 AM [facility] Glucose 86 70 - 100 mg/dL LAB CHEMISTRY METHOD 06/13/2024 10:23 AM [facility] BUN 43(H) 5 - 25 mg/dL LAB CHEMISTRY METHOD 06/13/2024 10:23 AM [facility] Creatinine 2.70(H) 0.70 - 1.30 mg/dL LAB CHEMISTRY METHOD 06/13/2024 10:23 AM [facility] eGFR 23(L) >=60 mL/min/1. 73m2 LAB CHEMISTRY METHOD 06/13/2024 10:23 AM [facility] Comment:Calculation based on the Chronic Kidney Disease Epidemiology Collaboration (CKD-EPI) equation refit without adjustment for race. BUN/Creatinine Ratio 15.9 LAB CHEMISTRY METHOD 06/13/2024 10:23 AM [facility] Calcium 7.8(L) 8.5 - 10.5 mg/dL LAB CHEMISTRY METHOD 06/13/2024 10:23 AM [facility] AST (SGOT) 137(H) 10 - 42 unit/L LAB CHEMISTRY METHOD 06/13/2024 10:23 AM [facility] ALT (SGPT) 111(H) 10 - 60 unit/L LAB CHEMISTRY METHOD 06/13/2024 10:23 AM [facility] Alkaline Phosphatase 99 42 - 121 unit/L LAB CHEMISTRY METHOD 06/13/2024 10:23 AM [facility] Total Protein 5.5(L) 6.0 - 8.0 g/dL LAB CHEMISTRY METHOD 06/13/2024 10:23 AM [facility] Albumin 1.7(L) 3.2 - 5.0 g/dL LAB CHEMISTRY METHOD 06/13/2024 10:23 AM [facility] Total Bilirubin 0.5 0.0 - 1.4 mg/dL LAB CHEMISTRY METHOD 06/13/2024 10:23 AM [facility] Blood Venous blood specimen / Unknown Venipuncture / Unknown 06/13/2024 7:00 AM EST 06/13/2024 8:28 AM EST us Natanael Rodney MD LAB BLOOD ORDERABLES Final Resu lt [facility] [address] [place] [address], * (ABNORMAL) Complete blood count (06/13/2024 7:00 AM EST) WBC 4.9 4.8 - 10.8 K/mcL LAB HEMETOLOGY METHOD 06/13/2024 10:08 AM [facility] RBC 2.80(L) 4.50 - 5.50 M/mcL LAB HEMETOLOGY METHOD 06/13/2024 10:08 AM [facility] Hemoglobin 7.6(L) 13.5 - 17.5 g/dL LAB HEMETOLOGY METHOD 06/13/2024 10:08 AM [facility] Hematocrit 25.2(L) 42.0 - 54.0 % LAB HEMETOLOGY METHOD 06/13/2024 10:08 AM [facility] MCV 88.7 79.0 - 98.0 FL LAB HEMETOLOGY METHOD 06/13/2024 10:08 AM [facility] MCH 26.8(L) 27.0 - 32.0 pcg LAB HEMETOLOGY METHOD 06/13/2024 10:08 AM [facility] MCHC 30.2(L) 32.0 - 37.0 g/dL LAB HEMETOLOGY METHOD 06/13/2024 10:08 AM [facility] RDW 16.8(H) 11.0 - 15.0 % LAB HEMETOLOGY METHOD 06/13/2024 10:08 AM [facility] Platelets 188 130 - 400 K/mcL LAB HEMETOLOGY METHOD 06/13/2024 10:08 AM [facility] MPV 10.3 7.0 - 11.0 FL LAB HEMETOLOGY METHOD 06/13/2024 10:08 AM [facility] NRBC 0.0 <1.0 % LAB HEMETOLOGY METHOD 06/13/2024 10:08 AM [facility] NRBC Absolute 0.00 <0.10 K/mcL LAB HEMETOLOGY METHOD 06/13/2024 10:08 AM [facility] Blood Venous blood specimen / Unknown Venipuncture / Unknown 06/13/2024 7:00 AM EST 06/13/2024 8:28 AM EST Natanael Rodney MD LAB BLOOD ORDERABLES Final [facility] [address] [place] [address], documented in this encounter Visit Diagnoses Diagnosis Anemia, unspecified documented in this encounter Additional Health Concerns Infection Onset 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
--- OUTSIDE RECORDS SUMMARY | 2025-03-08 21:09 | XMS_ITS | Encounter Summary ---
Author Organization [facility] Address [address] [place] [address] Care Team Providers Care Publicity Director Name Role Phone Uday Sheehan Primary Care Provider [phone] Encounter Details Date Type Department Care Team (Late st Contact Info) Description 03/08/2024 Lab Requisition [facility] [address] [place] [address] Lidia Barry, CB [address] [place] [address] Acute respiratory failure with hypoxia; No diagnosis [...] TOXIN ANTIGENS (LAB ONLY REFLEX) - [facility] Routine 03/08/2024 9:28 AM EDT Acute [...] Shiga Toxin Antigens (Lab only Reflex) - [facility] (03/08/2024 9:28 AM EDT) [facility] Toxin 1 Negative Negative [facility] 03/09/2024 9:37 AM EDT [facility] EHEC Toxin 2 Negative Negative [facility] 03/09/2024 9:37 AM EDT [facility] Stool Rectal route / Unknown Non-Blood Collection / Unknown 03/08/2024 9:28 AM EDT 03/08/2024 9:28 AM EDT us Lidia Barry [facility] MICROBIOLOGY - GENERAL O RDERABLES Final Result Performing Organization Address [facility] Co de Phone Number [facility] [address] [place] [address] [address] [place] [address], [place] [phone] * Stool Culture (03/08/2024 9:28 AM EDT) Pathologist [facility] Stool Culture Normal stool nohemi: no E. coli O157, Salmonella, Shigella, or Campylobacter isolated [facility] 03/11/2024 8:47 AM EDT [facility] Stool Rectal route / Unknown Non-Blood Collection / Unknown 03/08/2024 9:28 AM EDT 03/08/2024 9:28 AM EDT us Lidia Barry [facility] MICROBIOLOGY - GENERAL O RDERABLES Final Result [facility] [address] [facility] [address] [place] [address], * (ABNORMAL) CBC Auto Differential (03/08/2024 9:28 AM EDT) WBC 9.4 4.8 - 10.8 10*3/uL 03/08/2024 9:58 AM EDT [facility] RBC 3.27(L) 4.70 - 6.10 10*6/uL 03/08/2024 9:58 AM EDT [facility] Hemoglobin 9.1(L) 13.7 - 16.5 g/dL 03/08/2024 9:58 AM EDT [facility] Hematocrit 28.1(L) 40.5 - 48.5 % 03/08/2024 9:58 AM EDT [facility] MCV 85.9 80.0 - 94.0 fL 03/08/2024 9:58 AM EDT [facility] MCH 27.8 26.0 - 34.0 pg 03/08/2024 9:58 AM EDT [facility] MCHC 32.4 31.0 - 36.0 g/dL 03/08/2024 9:58 AM EDT [facility] RDW 15.4(H) 12.0 - 15.0 % 03/08/2024 9:58 AM EDT [facility] RDW Standard Deviation 48.1(H) 35.1 - 43.9 fL 03/08/2024 9:58 AM EDT [facility] Platelets 144 140 - 440 10*3/uL 03/08/2024 9:58 AM EDT [facility] MPV 10.9 9.4 - 12.4 fL 03/08/2024 9:58 AM EDT [facility] Neutrophil % 58.0 50.0 - 75.0 % 03/08/2024 9:58 AM EDT [facility] Immature Grans % 0.6 0.0 - 0.9 % 03/08/2024 9:58 AM EDT [facility] Lymphocyte % 26.8 20.0 - 44.0 % 03/08/2024 9:58 AM EDT [facility] Monocyte % 8.6 0.0 - 14.0 % 03/08/2024 9:58 AM EDT [facility] Eosinophil % 5.7(H) 0.0 - 5.0 % 03/08/2024 9:58 AM EDT [facility] Basophil % 0.3 0.0 - 2.0 % 03/08/2024 9:58 AM EDT [facility] Neutrophil # 5.44 1.80 - 7.70 10*3/uL 03/08/2024 9:58 AM EDT [facility] Immature Grans # 0.06(H) 0.00 - 0.03 10*3/uL 03/08/2024 9:58 AM EDT [facility] Lymphocyte # 2.50 1.00 - 4.75 10*3/uL 03/08/2024 9:58 AM EDT [facility] Monocyte # 0.80 0.00 - 6.00 10*3/uL 03/08/2024 9:58 AM EDT [facility] Eosinophil # 0.50 0.00 - 0.80 10*3/uL 03/08/2024 9:58 AM EDT [facility] Basophil # <0.03 0.00 - 0.20 10*3/uL 03/08/2024 9:58 AM EDT [facility] nRBC % 0.0 0 - 0 /100 WBCs 03/08/2024 9:58 AM EDT [facility] nRBC # <0.01 0.00 - 0.13 10*3/uL 03/08/2024 9:58 AM EDT [facility] Blood Structure of peripheral vein / Unknown Venipuncture / Unknown 03/08/2024 9:28 AM EDT 03/08/2024 9:28 AM EDT us Lidia Barry NP LAB BLOOD ORDERABLES Final R esult Performing Organization Address City/State/[facility] Co de Phone Number [facility] [address] [address], [place] [phone] * Magnesium (03/08/2024 9:28 AM EDT) MG 1.8 1.5 - 2.5 mg/dL 03/08/2024 10:10 AM EDT [facility] Blood Structure of peripheral vein / Unknown Venipuncture / Unknown 03/08/2024 9:28 AM EDT 03/08/2024 9:28 AM EDT Lidia Barry [facility] BLOOD ORDERABLES Final R esult Performing Organization Address [facility] Co de Phone Number [facility] [address] [address], [place] [phone] * (ABNORMAL) Comprehensive Metabolic Panel (03/08/2024 9:28 AM EDT) NA 138 136 - 145 mmol/L 03/08/2024 10:10 AM EDT [facility] K 3.8 3.5 - 5.1 mmol/L 03/08/2024 10:10 AM EDT [facility] Cl 104 98 - 109 mmol/L 03/08/2024 10:10 AM EDT [facility] CO2 23 23 - 32 mmol/L 03/08/2024 10:10 AM EDT [facility] Anion Gap 15 >=0 03/08/2024 10:10 AM EDT [facility] Glucose 107(H) 60 - 99 mg/dL 03/08/2024 10:10 AM EDT [facility] Creatinine 1.20(H) 0.50 - 1.12 mg/dL 03/08/2024 10:10 AM EDT [facility] Calcium 9.1 8.4 - 10.4 mg/dL 03/08/2024 10:10 AM EDT [facility] Total Protein 6.5(L) 6.6 - 8.7 g/dL 03/08/2024 10:10 AM EDT [facility] Albumin 3.2(L) 3.5 - 5.0 g/dL 03/08/2024 10:10 AM EDT [facility] Bilirubin, Total 0.5 0.2 - 1.2 mg/dL 03/08/2024 10:10 AM EDT [facility] Alkaline Phosphatase 111 40 - 129 U/L 03/08/2024 10:10 AM EDT [facility] AST 29 0 - 40 U/L 03/08/2024 10:10 AM EDT [facility] ALT 34 <=41 U/L 03/08/2024 10:10 AM EDT [facility] BUN 27(H) 8 - 23 mg/dL 03/08/2024 10:10 AM EDT [facility] eGFR 60 >=60 mL/min/1. 73m2 03/08/2024 10:10 AM EDT [facility] Comment:The estimated glomer [...] - 4.2 g/dL 03/08/2024 10:10 AM EDT [facility] A/G Ratio 1.0(L) 1.5 - 3.0 03/08/2024 10:10 AM EDT [facility] Blood Structure of peripheral vein / Unknown Venipuncture / Unknown 03/08/2024 9:28 AM EDT 03/08/2024 9:28 AM EDT us Lidia Rainville [facility] BLOOD ORDERABLES Final R esult [facility] [address] [place] [address], documented in this encounter Visit Diagnoses Diagnosis [...] documented as of this encounter Care Teams Publicity Director Relationship Specialty Start Date End Date Uday Sheehan [address] [place] [address] [place] [address] PCP - General Internal Medicine 03/27/24 documented as of this encounter
--- OUTSIDE RECORDS SUMMARY | 2025-03-08 21:09 | XMS_ITS | Encounter Summary ---
Author Organization [facility] Address [address] [place] [address] Care Team Providers Care Instrumental Teacher Name Role Phone Uday Sheehan Primary Care Provider [phone] Encounter Details Date Type Department Care Team (Late st Contact Info) Description 03/17/2024 Lab Requisition [facility] [address] [place] [id number] No diagnosis Social History Tobacco Use Types [...] documented as of this encounter Care Teams Instrumental Teacher Relationship Specialty Start Date End Date Uday Sheehan [address] [place] [address] dr Donna Thompson [place] [address] PCP - General Internal Medicine 03/27/24 documented as of this encounter
--- OUTSIDE RECORDS SUMMARY | 2025-03-08 21:09 | XMS_ITS | Clinical Summary ---
Author Organization [facility] Address [address] [address] Phone Care Team Providers Care Shrimp Picker Name Role Phone Pcp, Unknown Primary Care Provider Unavailabl e Social History Tobacco Use Types Packs/Day Years Used Date Smoking Tobacco: Never Assessed Education Answer Date Recorded Are you interested in more education? Not on juan daniel e 11/05/2022 Are you concerned about learning? Not on file 11/05/2022 No 11/05/2022 No 11/05/2022 Digital Access Answer Date Recorded No 12/04/2022 No 12/04/2022 No 12/04/2022 Reliable internet access at home? Not on file 12/04/2022 Device with a working camera? Not on file Sex and Gender Information Value Date Recorded Sex Assigned at Not on file Legal Sex Male 2:20 PM EDT Gender Identity Not on file Sexual Orientation Not on file Plan of Treatment Health Maintenance Due Date Last Done Comments Adult Td,Tdap Booster 1940 DEPRESSION SCREENING 1952 PNEUMOCOCCAL VACCINES (50+ years) (1 of 1 - PCV) 02/15/1990 ZOSTER VACCINES (1 of 2) 02/15/1990 RSV VACCINE (1 - 1-dose 75+ series) 02/15/2015 COVID-19 VACCINE (2023-2 5 season) 2024 INFLUENZA VACCINE (#1) 2025 8, 05/15/2017 HEPATITIS A VACCINES Aged Out No long er eligible based on patient's age to complete this topic HIB VACCINES Aged Out No longer eligi ble based on patient's age to complete this topic MENINGOCOCCAL VACCINES (ACWY) Aged Out No longer eligible based on patient's age to complete this topic MENINGOCOCCAL VACCINES (B) Aged Out N o longer eligible based on patient's age to complete this topic Medical Devices Not on file Insurance MEDICARE PART A & B [employer] MEDEX SUPPLEMENT MEDICARE PART A & B [employer] MEDEX SUPPLEMENT MEDICARE PART A & B [employer] MEDEX SUPPLEMENT MEDICARE PART A & B [employer] MEDEX SUPPLEMENT MEDICARE PART A & B [employer] MEDEX SUPPLEMENT MEDICARE PART A & B [employer] MEDEX SUPPLEMENT MEDICARE PART A & B [employer] MEDEX SUPPLEMENT MEDICARE PART A & B [employer] MEDEX SUPPLEMENT MEDICARE PART A & B [employer] MEDEX SUPPLEMENT Care Teams Shrimp Picker Relationship Specialty Start Date End Date Pcp, Unknown PCP - General 01/03/22 Additional Source Comments The information contained in this document represents components of the legal health record. It is not the complete legal health record.[facility]
--- OUTSIDE RECORDS SUMMARY | 2025-03-08 21:09 | XMS_ITS | Encounter Summary ---
Author Organization [facility] Address [address] [place] [address] Care Team Providers Care Fire Chief Deputy Name Role Phone Uday Sheehan Primary Care Provider [phone] Encounter Details Date Type Department Care Team (Late st Contact Info) Description 05/20/2024 Lab Requisition [facility] [address] [place] [address] Salo Whyte MD [address] [place] [address] Acute and chronic respiratory failure with hypoxia; [...] - 10.8 10*3/uL 05/20/2024 10:48 AM EST [facility] RBC 3.05(L) 4.70 - 6.10 10*6/uL 05/20/2024 10:48 AM EST [facility] Hemoglobin 8.3(L) 13.7 - 16.5 g/dL 05/20/2024 10:48 AM EST [facility] Hematocrit 26.4(L) 40.5 - 48.5 % 05/20/2024 10:48 AM EST [facility] MCV 86.6 80.0 - 94.0 fL 05/20/2024 10:48 AM EST [facility] MCH 27.2 26.0 - 34.0 pg 05/20/2024 10:48 AM EST [facility] MCHC 31.4 31.0 - 36.0 g/dL 05/20/2024 10:48 AM EST [facility] RDW 16.9(H) 12.0 - 15.0 % 05/20/2024 10:48 AM EST [facility] RDW Standard Deviation 53.1(H) 35.1 - 43.9 fL 05/20/2024 10:48 AM EST [facility] Platelets 141 140 - 440 10*3/uL 05/20/2024 10:48 AM EST [facility] MPV 10.0 9.4 - 12.4 fL 05/20/2024 10:48 AM EST [facility] Neutrophil % 50.4 50.0 - 75.0 % 05/20/2024 10:48 AM EST [facility] Immature Grans % 0.2 0.0 - 0.9 % 05/20/2024 10:48 AM EST [facility] Lymphocyte % 29.8 20.0 - 44.0 % 05/20/2024 10:48 AM EST [facility] Monocyte % 13.1 0.0 - 14.0 % 05/20/2024 10:48 AM EST [facility] Eosinophil % 5.9(H) 0.0 - 5.0 % 05/20/2024 10:48 AM EST [facility] Basophil % 0.6 0.0 - 2.0 % 05/20/2024 10:48 AM EST [facility] Neutrophil # 2.74 1.80 - 7.70 10*3/uL 05/20/2024 10:48 AM EST [facility] Immature Grans # <0.03 0.00 - 0.03 10*3/uL 05/20/2024 10:48 AM EST [facility] Lymphocyte # 1.60 1.00 - 4.75 10*3/uL 05/20/2024 10:48 AM EST [facility] Monocyte # 0.70 0.00 - 6.00 10*3/uL 05/20/2024 10:48 AM EST [facility] Eosinophil # 0.30 0.00 - 0.80 10*3/uL 05/20/2024 10:48 AM EST [facility] Basophil # <0.03 0.00 - 0.20 10*3/uL 05/20/2024 10:48 AM EST [facility] nRBC % 0.0 0 - 0 /100 WBCs 05/20/2024 10:48 AM EST [facility] nRBC # <0.01 0.00 - 0.13 10*3/uL 05/20/2024 10:48 AM EST [facility] Blood Structure of peripheral vein / Unknown Venipuncture / Unknown 05/20/2024 10:25 AM EST 05/20/2024 10:25 AM EST us Salo Whyte MD LAB BLOOD ORDERABLES Final Result Performing Organization Address City/State/[facility] Co de Phone Number [facility] [address] [place] [address] [address] [place] [address], [place] [phone] * (ABNORMAL) Comprehensive Metabolic Panel (05/20/2024 10:25 AM EST) NA 141 136 - 145 mmol/L 05/20/2024 11:11 AM EST [facility] K 3.7 3.5 - 5.1 mmol/L 05/20/2024 11:11 AM EST [facility] Cl 102 98 - 109 mmol/L 05/20/2024 11:11 AM EST [facility] CO2 27 22 - 32 mmol/L 05/20/2024 11:11 AM EST [facility] Anion Gap 16 >=0 05/20/2024 11:11 AM EST [facility] Glucose 91 60 - 99 mg/dL 05/20/2024 11:11 AM EST [facility] Creatinine 1.68(H) 0.50 - 1.12 mg/dL 05/20/2024 11:11 AM EST [facility] Calcium 9.4 8.4 - 10.4 mg/dL 05/20/2024 11:11 AM EST [facility] Total Protein 6.4(L) 6.6 - 8.7 g/dL 05/20/2024 11:11 AM EST [facility] Albumin 3.1(L) 3.5 - 5.0 g/dL 05/20/2024 11:11 AM EST [facility] Bilirubin, Total 0.2 0.2 - 1.2 mg/dL 05/20/2024 11:11 AM EST [facility] Alkaline Phosphatase 102 40 - 129 U/L 05/20/2024 11:11 AM EST [facility] AST 23 0 - 40 U/L 05/20/2024 11:11 AM EST [facility] ALT 17 <=41 U/L 05/20/2024 11:11 AM EST [facility] BUN 35(H) 8 - 23 mg/dL 05/20/2024 11:11 AM EST [facility] eGFR 40(L) >=60 mL/min/1. 73m2 05/20/2024 11:11 AM EST [facility] Comment:The estimated [...] - 4.2 g/dL 05/20/2024 11:11 AM EST [facility] A/G Ratio 0.9(L) 1.5 - 3.0 05/20/2024 11:11 AM EST [facility] Blood Structure of peripheral vein / Unknown Venipuncture / Unknown 05/20/2024 10:25 AM EST 05/20/2024 10:25 AM EST Salo Whyte MD LAB BLOOD ORDERABLES Final Result Performing Organization Address City/State/[facility] Co de Phone Number [facility] [address] [facility] [address] [place] [address], documented in this encounter Visit Diagnoses Diagnosis Acute and chronic respiratory failure with hypoxia (HCC) No diagnosis documented in this encounter Additional Health Concerns Infection Onset Date Last Indicated Resolved Time 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
--- OUTSIDE RECORDS SUMMARY | 2025-03-08 21:09 | XMS_ITS | Encounter Summary ---
Author Organization [facility] Address [address] [facility] [place] [address] Phone Care Team Providers Care Code Clerk Name Role Phone Pcp, Unknown Primary Care Provider Unavailabl e Encounter Details Date Type Department Care Team (Late st Contact Info) Description 01/03/2022 Procedure Pass Echo Lab [facility] [address] [place] [address] Social History Tobacco Use Types Packs/Day Years [...] on filedocumented in this encounter Care Teams Code Clerk Relationship Specialty Start Date End Date Pcp, Unknown PCP - General 01/03/22 documented as of this encounter Additional Source Comments The information contained in this document represents components of the legal health record. It is not the complete legal health record.[facility]
--- OUTSIDE RECORDS SUMMARY | 2025-03-08 21:09 | XMS_ITS | Encounter Summary ---
Author Organization [facility] Address [address] [place] [address] Care Team Providers Care Stockbroker Name Role Phone Uday Sheehan Primary Care Provider [phone] Encounter Details Date Type Department Care Team (Late st Contact Info) Description 03/11/2024 Lab Requisition [facility] Lab [address] [place] [address] Lidia Barry, CB [address] [place] [address] Acute and chronic respiratory failure with hypoxia; [...] after 5 days 03/16/2024 3:06 PM EDT [facility] Blood Structure of peripheral vein / Unknown Venipuncture / Unknown 03/11/2024 1:30 PM EDT 03/11/2024 2:34 PM EDT us Frazierkevin Barry LAB MICROBIOLOGY - GENERAL O RDERABLES Final Result Performing Organization Address City/[facility]/ZIP Co de Phone Number [facility] [address] [address], [place] [phone] * Blood Culture (03/11/2024 1:30 PM EDT) Blood Culture No growth after 5 days 03/16/2024 3:06 PM EDT [facility] Blood Structure of peripheral vein / Unknown Venipuncture / Unknown 03/11/2024 1:30 PM EDT 03/11/2024 2:34 PM EDT [facility] MICROBIOLOGY - GENERAL O RDERABLES Final Result Performing Organization Address [facility]/ZIP Co de Phone Number [facility] [address] [address], [place] [phone] * (ABNORMAL) Microscopic Urinalysis Only (03/11/2024 11:13 AM EDT) RBC, Urine 40-50(A) None Seen, 0-2 /HPF 03/11/2024 3:06 PM EDT [facility] WBC, Urine 20-30(A) None Seen, 0-2 /HPF 03/11/2024 3:06 PM EDT [facility] Squamous Epithelial Cells, Urine 3-5 /HPF 03/11/2024 3:06 PM EDT [facility] Calcium Oxalate Crystals, Urine Moderate /HPF 03/11/2024 3:06 PM EDT [facility] Bacteria, Urine Moderate(A) None Seen /HPF 03/11/2024 3:06 PM EDT [facility] Urine Urine specimen collection, clean catch / Unknown Non-Blood Collection / Unknown 03/11/2024 11:13 AM EDT 03/11/2024 2:45 PM EDT us Frazierkevin [place] TEACHER OF FAMILY AND CONSUMER SCIENCE LAB URINE ORDERABLES Final R esult Performing Organization Address [facility] Co de Phone Number [facility] [address] [address], [place] [phone] * (ABNORMAL) Urine Culture, Routine (03/11/2024 11:13 AM EDT) Urine Culture >100,000 CFU/mL Pseudomonas aeruginosa(A) MINIMUM INHIBITORY CONCENTRATION ([place]) 03/15/2024 8:12 AM EDT [facility] Urine Urine specimen collection, [...] values in mcg/mL . us Lidia Barry TEACHER OF FAMILY AND CONSUMER SCIENCE LAB MICROBIOLOGY - GENERAL O RDERABLES Final Result Performing Organization Address [facility] Co de Phone Number [facility] [address] [address], [place] [phone] * Lactic Acid, Plasma (03/11/2024 11:13 AM EDT) Lactic Acid 0.8 0.5 - 2.0 mmol/L 03/11/2024 3:02 PM EDT [facility] Blood Structure of peripheral vein / Unknown 03/11/2024 11:13 AM EDT 03/11/2024 2:40 PM EDT [facility] TEACHER OF FAMILY AND CONSUMER SCIENCE LAB BLOOD ORDERABLES Final R esult Performing Organization Address [facility]/ZIP Co de Phone Number [facility] [address] [address], [place] [phone] * Magnesium (03/11/2024 11:13 AM EDT) MG 1.8 1.5 - 2.5 mg/dL 03/11/2024 3:03 PM EDT [facility] Blood Structure of peripheral vein / Unknown Venipuncture / Unknown 03/11/2024 11:13 AM EDT 03/11/2024 2:34 PM EDT us Lidia [facility] TEACHER OF FAMILY [employer] CONSUMER SCIENCE LAB BLOOD ORDERABLES Final R esult Performing Organization Address [facility] Co de Phone Number [facility] [address] [address], [place] [phone] * (ABNORMAL) Comprehensive Metabolic Panel (03/11/2024 11:13 AM EDT) NA 136 136 - 145 mmol/L 03/11/2024 3:03 PM EDT [facility] K 3.7 3.5 - 5.1 mmol/L 03/11/2024 3:03 PM EDT [facility] Cl 101 98 - 109 mmol/L 03/11/2024 3:03 PM EDT [facility] CO2 24 23 - 32 mmol/L 03/11/2024 3:03 PM EDT [facility] Anion Gap 15 >=0 03/11/2024 3:03 PM EDT [facility] Glucose 123(H) 60 - 99 mg/dL 03/11/2024 3:03 PM EDT [facility] Creatinine 1.26(H) 0.50 - 1.12 mg/dL 03/11/2024 3:03 PM EDT [facility] Calcium 8.9 8.4 - 10.4 mg/dL 03/11/2024 3:03 PM EDT [facility] Total Protein 5.6(L) 6.6 - 8.7 g/dL 03/11/2024 3:03 PM EDT [facility] Albumin 3.2(L) 3.5 - 5.0 g/dL 03/11/2024 3:03 PM EDT [facility] Bilirubin, Total 0.5 0.2 - 1.2 mg/dL 03/11/2024 3:03 PM EDT [facility] Alkaline Phosphatase 103 40 - 129 U/L 03/11/2024 3:03 PM EDT [facility] AST 73(H) 0 - 40 U/L 03/11/2024 3:03 PM EDT [facility] ALT 73(H) <=41 U/L 03/11/2024 3:03 PM EDT [facility] BUN 16 8 - 23 mg/dL 03/11/2024 3:03 PM EDT [facility] eGFR 56(L) >=60 mL/min/1. 73m2 03/11/2024 3:03 PM EDT [facility] Comment:The estimated [...] - 4.2 g/dL 03/11/2024 3:03 PM EDT [facility] A/G Ratio 1.3(L) 1.5 - 3.0 03/11/2024 3:03 PM T [facility] Blood Structure of peripheral vein / Unknown Venipuncture / Unknown 03/11/2024 11:13 AM EDT 03/11/2024 2:34 PM EDT Lidia Barry TEACHER OF FAMILY [employer] CONSUMER [employer]ENCE LAB BLOOD ORDERABLES Final R esult [facility] [address] [facility] [address] [place] [address], [place] [phone] * (ABNORMAL) CBC Auto Differential (03/11/2024 11:13 AM EDT) WBC 8.5 4.8 - 10.8 10*3/uL 03/11/2024 2:44 PM EDT [facility] RBC 3.04(L) 4.70 - 6.10 10*6/uL 03/11/2024 2:44 PM EDT [facility] Hemoglobin 8.6(L) 13.7 - 16.5 g/dL 03/11/2024 2:44 PM EDT [facility] Hematocrit 26.1(L) 40.5 - 48.5 % 03/11/2024 2:44 PM EDT [facility] MCV 85.9 80.0 - 94.0 fL 03/11/2024 2:44 PM EDT [facility] MCH 28.3 26.0 - 34.0 pg 03/11/2024 2:44 PM EDT [facility] MCHC 33.0 31.0 - 36.0 g/dL 03/11/2024 2:44 PM EDT [facility] RDW 14.9 12.0 - 15.0 % 03/11/2024 2:44 PM EDT [facility] RDW Standard Deviation 47.3(H) 35.1 - 43.9 fL 03/11/2024 2:44 PM EDT [facility] Platelets 131(L) 140 - 440 10*3/uL 03/11/2024 2:44 PM EDT [facility] MPV 10.6 9.4 - 12.4 fL 03/11/2024 2:44 PM EDT [facility] Neutrophil % 65.2 50.0 - 75.0 % 03/11/2024 2:44 PM EDT [facility] Immature Grans % 0.4 0.0 - 0.9 % 03/11/2024 2:44 PM EDT [facility] Lymphocyte % 20.9 20.0 - 44.0 % 03/11/2024 2:44 PM EDT [facility] Monocyte % 10.9 0.0 - 14.0 % 03/11/2024 2:44 PM EDT [facility] Eosinophil % 2.2 0.0 - 5.0 % 03/11/2024 2:44 PM EDT [facility] Basophil % 0.4 0.0 - 2.0 % 03/11/2024 2:44 PM EDT [facility] Neutrophil # 5.51 1.80 - 7.70 10*3/uL 03/11/2024 2:44 PM EDT [facility] Immature Grans # 0.03 0.00 - 0.03 10*3/uL 03/11/2024 2:44 PM EDT [facility] Lymphocyte # 1.80 1.00 - 4.75 10*3/uL 03/11/2024 2:44 PM EDT [facility] Monocyte # 0.90 0.00 - 6.00 10*3/uL 03/11/2024 2:44 PM EDT [facility] Eosinophil # 0.20 0.00 - 0.80 10*3/uL 03/11/2024 2:44 PM EDT [facility] Basophil # <0.03 0.00 - 0.20 10*3/uL 03/11/2024 2:44 PM EDT [facility] nRBC % 0.0 0 - 0 /100 WBCs 03/11/2024 2:44 PM EDT [facility] nRBC # <0.01 0.00 - 0.13 10*3/uL 03/11/2024 2:44 PM EDT [facility] Blood Structure of peripheral vein / Unknown Venipuncture / Unknown 03/11/2024 11:13 AM EDT 03/11/2024 2:34 PM EDT [facility] TEACHER OF FAMILY AND CONSUMER SCIENCE LAB BLOOD ORDERABLES Final R esult Performing Organization Address [facility]/ZIP Co de Phone Number [facility] [address] [address], [place] [phone] * Barcenas Top, Urine (03/11/2024 11:13 AM EDT) Extra Tube Hold for add-ons. 03/11/2024 4:05 PM EDT [facility] Comment:Auto resulted. Urine Urine specimen collection, clean catch / Unknown Non-Blood Collection / Unknown 03/11/2024 11:13 AM EDT 03/11/2024 2:30 PM EDT [facility] TE[employer]ER OF FAMILY [employer] CONSUMER [employer] LAB URINE ORDERABLES Final R esult Performing Organization Address [facility] Co de Phone Number [facility] [address] [address], [place] [phone] * (ABNORMAL) Urinalysis W/Reflex to Microscopic & Culture (03/11/2024 11:13 AM EDT) Color, Urine Dark Yellow Yellow 03/11/2024 2:45 PM EDT [facility] Clarity, Urine Turbid(A) Clear 03/11/2024 2:45 PM EDT [facility] Specific [place], Urine 1.020 1.005 - 1.030 03/11/2024 2:45 PM EDT [facility] pH, Urine 5.5 5.0 - 8.0 03/11/2024 2:45 PM EDT [facility] Protein, Urine 100(A) Negative mg/dL 03/11/2024 2:45 PM EDT [facility] Glucose, Urine Negative Negative mg/dL 03/11/2024 2:45 PM EDT [facility] Ketones, Urine Trace(A) Negative mg/dL 03/11/2024 2:45 PM EDT [facility] Bilirubin, Urine Negative Negative 03/11/2024 2:45 PM EDT [facility] Blood, Urine Large(A) Negative 03/11/2024 2:45 PM EDT [facility] Nitrite, Urine Positive(A) Negative 03/11/2024 2:45 PM EDT [facility] Urobilinogen, Urine 1.0 0.2 - 1.0 E.U./dL 03/11/2024 2:45 PM EDT [facility] Leukocyte Esterase, Urine Moderate(A) Negative 03/11/2024 2:45 PM EDT [facility] Urine Urine specimen collection, clean catch / Unknown Non-Blood Collection / Unknown 03/11/2024 11:13 AM EDT 03/11/2024 2:30 PM EDT us Lidia Barry LAB URINE ORDERABLES Final R esult Performing Organization Address City/State/[facility] Co de Phone Number [facility] [address] [facility] [address] [place] [address], [place] [phone] documented in this encounter Visit Diagnoses Diagnosis [...] documented as of this encounter Care Teams Stockbroker Relationship Specialty Start Date End Date Uday Sheehan [address] [place] [address] [place] [address] PCP - General Internal Medicine 03/27/24 documented as of this encounter
--- OUTSIDE RECORDS SUMMARY | 2025-03-08 21:09 | XMS_ITS | Encounter Summary ---
Author Organization [facility] Address [address] [place] [address] Care Team Providers Care Commercial Real Estate Manager Name Role Phone Uday Sheehan MD Primary Care Provider [phone] Encounter Details Date Type Department Care Team (Late st Contact Info) Description 06/12/2024 Lab Requisition [facility] [address] [place] [address] Pearl Garcia MD [address] [place] [address] Abnormal results of liver function [...] LAB CHEMISTRY METHOD 06/12/2024 12:15 PM EST [facility] Blood Venous blood specimen / Unknown Venipuncture / Unknown 06/12/2024 9:20 AM EST 06/12/2024 11:19 AM EST us Pearl Garcia MD LAB BLOOD ORDERABLES Final Resul t Performing Organization Address [facility] Co de Phone Number [facility] [address] [place] [address], [place] [phone] * (ABNORMAL) Triiodothyronine free (06/12/2024 9:20 AM EST) T3, Free 148(L) 230 - 420 pcg/dL LAB CHEMISTRY METHOD 06/12/2024 12:15 PM EST [facility] Blood Venous blood specimen / Unknown Venipuncture / Unknown 06/12/2024 9:20 AM EST 06/12/2024 11:19 AM EST us Pearl Garcia MD LAB BLOOD ORDERABLES Final Resul t [facility] [address] [place] [address], [place] [phone] * (ABNORMAL) Thyroid stimulating hormone (06/12/2024 9:20 AM EST) TSH 4.91(H) 0.40 - 4.00 mcIU/mL LAB CHEMISTRY METHOD 06/12/2024 12:15 PM EST [facility] Blood Venous blood specimen / Unknown Venipuncture / Unknown 06/12/2024 9:20 AM EST 06/12/2024 11:19 AM EST us Pearl Garcia MD LAB BLOOD ORDERABLES Final Resul t Performing Organization Address [facility] de Phone Number [facility] [address] [place] [address], [place] [phone] * (ABNORMAL) Alanine aminotransferase (06/12/2024 9:20 AM EST) ALT (SGPT) 127(H) 10 - 60 unit/L LAB CHEMISTRY METHOD 06/12/2024 12:03 PM EST [facility] Blood Venous blood specimen / Unknown Venipuncture / Unknown 06/12/2024 9:20 AM EST 06/12/2024 11:19 AM EST us Pearl Garcia MD LAB BLOOD ORDERABLES Final Resul t Performing Organization Address [facility] de Phone Number [facility] [address] [place] [address], [place] [phone] * (ABNORMAL) Aspartate aminotransferase (06/12/2024 9:20 AM EST) AST (SGOT) 185(H) 10 - 42 unit/L LAB CHEMISTRY METHOD 06/12/2024 12:04 PM EST [facility] Blood Venous blood specimen / Unknown Venipuncture / Unknown 06/12/2024 9:20 AM EST 06/12/2024 11:19 AM EST us Pearl Garcia MD LAB BLOOD ORDERABLES Final Resul t Performing Organization Address [facility] de Phone Number [facility] [address] [place] [address], [place] [phone] documented in this encounter Visit Diagnoses Diagnosis Abnormal results of liver function studies Nonspecific abnormal results of liver function study Hypothyroidism, unspecified documented in this encounter Additional Health Concerns Infection Onset Date Last Indicated Resolved Time ESBL 06/22/2024 06/22/2024 documented as of this encounter Care Teams Commercial Real Estate Manager Relationship Specialty Start Date End Date Uday Sheehan MD [address] [place] [address] Dr Donna [place] PCP - General Denture Model Maker 12/19/16 documented as of this encounter
--- OUTSIDE RECORDS SUMMARY | 2025-03-08 21:09 | XMS_ITS | Encounter Summary ---
Author Organization [facility] Address [address] [place] [address] Care Team Providers Care Networks Software Consultant Name Role Phone Uday Sheehan Primary Care Provider [phone] Encounter Details Date Type Department Care Team (Late st Contact Info) Description 03/11/2024 Lab Requisition [facility] [address] [place] [address] [phone] Valarie Pierson MD [address] [place] [phone] Acute and chronic respiratory failure with hypoxia; [...] documented as of this encounter Care Teams Networks Software Consultant Relationship Specialty Start Date End Date Uday Sheehan [address] [place] [address] dr Donna [place], [place] [address] PCP - General Internal Medicine 03/27/24 documented as of this encounter
--- OUTSIDE RECORDS SUMMARY | 2025-03-08 21:09 | XMS_ITS | Encounter Summary ---
[facility] Address [address] [place] [address] Care Team Providers Care Section Hand Helper Name Role Phone Uday Sheehan MD Primary Care Provider [phone] Encounter Details Date Type Department Care Team (Late st Contact Info) Description 06/15/2024 Lab Requisition [facility] Lab [address] [facility] [place] [address] Zak Zuluaga MD [address] [place], [place] [id number] Unspecified atrial fibrillation (CMS/HCC V24, CMS/HCC V28); [...] mmol/L LAB CHEMISTRY METHOD 06/17/2024 10:19 AM [facility] Potassium 4.7 3.5 - 5.5 mmol/L LAB CHEMISTRY METHOD 06/17/2024 10:19 AM [facility] Chloride 113(H) 96 - 110 mmol/L LAB CHEMISTRY METHOD 06/17/2024 10:19 AM [facility] CO2 24 21 - 32 mmol/L LAB CHEMISTRY METHOD 06/17/2024 10:19 AM [facility] Anion Gap 8 3 - 11 LAB CHEMISTRY METHOD 06/17/2024 10:19 AM [facility] Glucose 86 70 - 100 mg/dL LAB CHEMISTRY METHOD 06/17/2024 10:19 AM [facility] BUN 41(H) 5 - 25 mg/dL LAB CHEMISTRY METHOD 06/17/2024 10:19 AM [facility] Creatinine 2.95(H) 0.70 - 1.30 mg/dL LAB CHEMISTRY METHOD 06/17/2024 10:19 AM [facility] eGFR 20(L) >=60 mL/min/1. 73m2 LAB CHEMISTRY METHOD 06/17/2024 10:19 AM [facility] Comment:Calculation based on the Chronic Kidney Disease Epidemiology Collaboration (CKD-EPI) equation refit without adjustment for race. BUN/Creatinine Ratio 13.9 LAB CHEMISTRY METHOD 06/17/2024 10:19 AM [facility] Calcium 8.5 8.5 - 10.5 mg/dL LAB CHEMISTRY METHOD 06/17/2024 10:19 AM [facility] AST (SGOT) 50(H) 10 - 42 unit/L LAB CHEMISTRY METHOD 06/17/2024 10:19 AM [facility] ALT (SGPT) 59 10 - 60 unit/L LAB CHEMISTRY METHOD 06/17/2024 10:19 AM [facility] Alkaline Phosphatase 99 42 - 121 unit/L LAB CHEMISTRY METHOD 06/17/2024 10:19 AM [facility] Total Protein 5.9(L) 6.0 - 8.0 g/dL LAB CHEMISTRY METHOD 06/17/2024 10:19 AM [facility] Albumin 1.7(L) 3.2 - 5.0 g/dL LAB CHEMISTRY METHOD 06/17/2024 10:19 AM [facility] Total Bilirubin 0.6 0.0 - 1.4 mg/dL LAB CHEMISTRY METHOD 06/17/2024 10:19 AM [facility] Blood Venous blood specimen / Unknown Venipuncture / Unknown 06/17/2024 6:45 AM EST 06/17/2024 9:11 AM EST us Zak Zuluaga MD LAB BLOOD ORDERABLES Final Resul t [facility] [address] [place] [address], * (ABNORMAL) Complete blood count (06/17/2024 6:45 AM EST) WBC 8.6 4.8 - 10.8 K/mcL LAB HEMETOLOGY METHOD 06/17/2024 9:49 AM [facility] RBC 3.00(L) 4.50 - 5.50 M/mcL LAB HEMETOLOGY METHOD 06/17/2024 9:49 AM [facility] Hemoglobin 7.9(L) 13.5 - 17.5 g/dL LAB HEMETOLOGY METHOD 06/17/2024 9:49 AM [facility] Hematocrit 26.5(L) 42.0 - 54.0 % LAB HEMETOLOGY METHOD 06/17/2024 9:49 AM [facility] MCV 88.9 79.0 - 98.0 FL LAB HEMETOLOGY METHOD 06/17/2024 9:49 AM [facility] MCH 26.5(L) 27.0 - 32.0 pcg LAB HEMETOLOGY METHOD 06/17/2024 9:49 AM EST [facility] MCHC 29.8(L) 32.0 - 37.0 g/dL LAB HEMETOLOGY METHOD 06/17/2024 9:49 AM [facility] RDW 16.9(H) 11.0 - 15.0 % LAB HEMETOLOGY METHOD 06/17/2024 9:49 AM EST [facility] Platelets 284 130 - 400 K/mcL LAB HEMETOLOGY METHOD 06/17/2024 9:49 AM [facility] MPV 9.6 7.0 - 11.0 FL LAB HEMETOLOGY METHOD 06/17/2024 9:49 AM [facility] NRBC 0.0 <1.0 % LAB HEMETOLOGY METHOD 06/17/2024 9:49 AM [facility] NRBC Absolute 0.00 <0.10 K/mcL LAB HEMETOLOGY METHOD 06/17/2024 9:49 AM [facility] Blood Venous blood specimen / Unknown Venipuncture / Unknown 06/17/2024 6:45 AM EST 06/17/2024 9:18 AM EST us Zak Zuluaga MD LAB BLOOD ORDERABLES Final Resul t [facility] [address] [place] [address], documented in this encounter Visit Diagnoses Diagnosis Unspecified atrial fibrillation (CMS/HCC V24, CMS/HCC V28) Essential (primary) hypertension Unspecified essential hypertension documented in this encounter Additional Health Concerns Infection Onset Date Last Indicated Resolved Time ESBL 06/22/2024 06/22/2024 documented as of this encounter Care Teams Section Hand Helper Relationship Specialty Start Date End Date Uday Sheehan MD [address] [facility] [address] Donna [place] PCP - General Atmospheric Technician 12/19/16 documented as of this encounter
--- OUTSIDE RECORDS SUMMARY | 2025-03-08 21:09 | XMS_ITS | Encounter Summary ---
Author Organization [facility] Address [address] [place] [address] Care Team Providers Care Hog Ringer Name Role Phone Uday Sheehan MD Primary Care Provider [phone] Encounter Details Date Type Department Care Team (Late st Contact Info) Description 08/31/2024 Lab Requisition [facility] - Main Lab [address] [facility] [place] [address] Tabby Bledsoe MD [address] [address] Bacteremia Social History Tobacco Use Types Packs/Day [...] documented as of this encounter Care Teams Hog Ringer Relationship Specialty Start Date End Date Uday Sheehan MD [address] [place] [address] PCP - General Automotive Consultant 12/19/16 documented as of this encounter
--- OUTSIDE RECORDS SUMMARY | 2025-03-08 21:09 | XMS_ITS | Encounter Summary ---
Author Organization [facility] Address [address] [place] [address] Care Team Providers Care Computer Programming Supervisor Name Role Phone Uday Sheehan Primary Care Provider [phone] Encounter Details Date Type Department Care Team (Late st Contact Info) Description 04/09/2024 Lab Requisition [facility] [address] [place] [address] Salo Whyte MD [address] [place] [address] Acute respiratory failure with hypoxia; No diagnosis [...] N-terminal ProBrain Natriuretic Peptide - [facility] & [facility]/[place] Only (04/09/2024 8:51 AM EDT) Pro-B-Type Natriuretic [...] BLOOD ORDERABLES Final Result Performing Organization Address City/[facility]/ZIP Co de Phone Number [facility] [address] [address], [place] [phone] * Vitamin B12 (04/09/2024 8:51 AM EDT) Vitamin B12 636 232 - 1,245 pg/mL 04/09/2024 9:42 AM EDT [facility] Blood Structure of peripheral vein / Unknown Venipuncture / Unknown 04/09/2024 8:51 AM EDT 04/09/2024 8:52 AM EDT us Salo Whyte MD LAB BLOOD ORDERABLES Final Result Performing Organization Address [facility] Co de Phone Number [facility] [address] [address], [place] [phone] * (ABNORMAL) CBC Auto Differential (04/09/2024 8:51 AM EDT) Pathologist [facility] [place] WBC 8.3 4.8 - 10.8 10*3/uL 04/09/2024 9:14 AM EDT [facility] RBC 2.86(L) 4.70 - 6.10 10*6/uL 04/09/2024 9:14 AM EDT [facility] Hemoglobin 8.0(L) 13.7 - 16.5 g/dL 04/09/2024 9:14 AM EDT [facility] Hematocrit 25.7(L) 40.5 - 48.5 % 04/09/2024 9:14 AM EDT [facility] MCV 89.9 80.0 - 94.0 fL 04/09/2024 9:14 AM EDT [facility] MCH 28.0 26.0 - 34.0 pg 04/09/2024 9:14 AM EDT [facility] MCHC 31.1 31.0 - 36.0 g/dL 04/09/2024 9:14 AM EDT [facility] RDW 17.2(H) 12.0 - 15.0 % 04/09/2024 9:14 AM EDT [facility] RDW Standard Deviation 54.8(H) 35.1 - 43.9 fL 04/09/2024 9:14 AM EDT [facility] Platelets 228 140 - 440 10*3/uL 04/09/2024 9:14 AM EDT [facility] MPV 10.8 9.4 - 12.4 fL 04/09/2024 9:14 AM EDT [facility] Neutrophil % 58.2 50.0 - 75.0 % 04/09/2024 9:14 AM EDT [facility] Immature Grans % 0.7 0.0 - 0.9 % 04/09/2024 9:14 AM EDT [facility] Lymphocyte % 22.1 20.0 - 44.0 % 04/09/2024 9:14 AM EDT [facility] Monocyte % 11.3 0.0 - 14.0 % 04/09/2024 9:14 AM EDT [facility] Eosinophil % 7.1(H) 0.0 - 5.0 % 04/09/2024 9:14 AM EDT [facility] Basophil % 0.6 0.0 - 2.0 % 04/09/2024 9:14 AM EDT [facility] Neutrophil # 4.85 1.80 - 7.70 10*3/uL 04/09/2024 9:14 AM EDT [facility] Immature Grans # 0.06(H) 0.00 - 0.03 10*3/uL 04/09/2024 9:14 AM EDT [facility] Lymphocyte # 1.80 1.00 - 4.75 10*3/uL 04/09/2024 9:14 AM EDT [facility] Monocyte # 0.90 0.00 - 6.00 10*3/uL 04/09/2024 9:14 AM EDT [facility] Eosinophil # 0.60 0.00 - 0.80 10*3/uL 04/09/2024 9:14 AM EDT [facility] Basophil # 0.10 0.00 - 0.20 10*3/uL 04/09/2024 9:14 AM EDT [facility] nRBC % 0.0 0 - 0 /100 WBCs 04/09/2024 9:14 AM EDT [facility] nRBC # <0.01 0.00 - 0.13 10*3/uL 04/09/2024 9:14 AM EDT [facility] Blood Structure of peripheral vein / Unknown Venipuncture / Unknown 04/09/2024 8:51 AM EDT 04/09/2024 8:52 AM EDT Salo Whyte MD LAB BLOOD ORDERABLES Final Result Performing Organization Address City/[facility]/ZIP Co de Phone Number [facility] [address] [address], [place] [phone] * (ABNORMAL) TSH (04/09/2024 8:51 AM EDT) TSH 10.800(H) 0.270 - 4.200 uIU/mL 04/09/2024 9:34 AM EDT [facility] Blood Structure of peripheral vein / Unknown Venipuncture / Unknown 04/09/2024 8:51 AM EDT 04/09/2024 8:52 AM EDT Salo Whyte MD LAB BLOOD ORDERABLES Final Result Performing Organization Address City/[facility]/ZIP Co de Phone Number [facility] [address] [address], [place] [phone] * T4, Free (04/09/2024 8:51 AM EDT) Free T4 1.40 0.80 - 1.80 ng/dL 04/09/2024 9:34 AM EDT [facility] Comment: Females: (ng/dL) First Trimester [...] BLOOD ORDERABLES Final Result Performing Organization Address City/[facility]/ZIP Co de Phone Number [facility] [address] [place] [address], [place] [phone] * Magnesium (04/09/2024 8:51 AM EDT) MG 2.5 1.5 - 2.5 mg/dL 04/09/2024 9:34 AM EDT [facility] Blood Structure of peripheral vein / Unknown Venipuncture / Unknown 04/09/2024 8:51 AM EDT 04/09/2024 8:52 AM EDT Salo Whyte MD LAB BLOOD ORDERABLES Final Result Performing Organization Address City/[facility]/ZIP Co de Phone Number [facility] [address] [place] [address], [place] [phone] * Hemoglobin A1c (04/09/2024 8:51 AM EDT) Hemoglobin A1c 5.6 4.0 - 5.7 % 04/09/2024 9:25 AM EDT [facility] Estimated Average Glucose 114 mg/dL 04/09/2024 9:25 AM EDT [facility] Blood Structure of peripheral vein / Unknown Venipuncture / Unknown 04/09/2024 8:51 AM EDT 04/09/2024 8:52 AM EDT us Salo Whyte MD LAB BLOOD ORDERABLES Final Result Performing Organization Address [facility] Co de Phone Number [facility] [address] [address], [place] [phone] * Ammonia (04/09/2024 8:51 AM EDT) Ammonia 20 16 - 60 umol/L 04/09/2024 9:24 AM EDT [facility] Blood Structure of peripheral vein / Unknown Venipuncture / Unknown 04/09/2024 8:51 AM EDT 04/09/2024 8:52 AM EDT us Salo Whyte MD LAB BLOOD ORDERABLES Final Result Performing Organization Address [facility] Co de Phone Number [facility] [address] [address], [place] [phone] * (ABNORMAL) Comprehensive Metabolic Panel (04/09/2024 8:51 AM EDT) NA 144 136 - 145 mmol/L 04/09/2024 9:34 AM EDT [facility] K 4.0 3.5 - 5.1 mmol/L 04/09/2024 9:34 AM EDT [facility] Cl 104 98 - 109 mmol/L 04/09/2024 9:34 AM EDT [facility] CO2 32 22 - 32 mmol/L 04/09/2024 9:34 AM EDT [facility] Anion Gap 12 >=0 04/09/2024 9:34 AM EDT [facility] Glucose 96 60 - 99 mg/dL 04/09/2024 9:34 AM EDT [facility] Creatinine 1.30(H) 0.50 - 1.12 mg/dL 04/09/2024 9:34 AM EDT [facility] Calcium 9.7 8.4 - 10.4 mg/dL 04/09/2024 9:34 AM T [facility] Total Protein 6.8 6.6 - 8.7 g/dL 04/09/2024 9:34 AM [facility] Albumin 3.1(L) 3.5 - 5.0 g/dL 04/09/2024 9:34 AM [facility] Bilirubin, Total 0.2 0.2 - 1.2 mg/dL 04/09/2024 9:34 AM [facility] Alkaline Phosphatase 85 40 - 129 U/L 04/09/2024 9:34 AM [facility] AST 40 0 - 40 U/L 04/09/2024 9:34 AM [facility] ALT 28 <=41 U/L 04/09/2024 9:34 AM [facility] BUN 56(H) 8 - 23 mg/dL 04/09/2024 9:34 AM [facility] eGFR 54(L) >=60 mL/min/1. 73m2 04/09/2024 9:34 AM [facility] Comment:The estimated glomer ular filtration rate (eGFR) is calculated using a new formula developed by the NKF-ASN task force to eliminate race-based correction factors. The new formula uses serum/plasma creatinine, age, and gender to determine eGFR. A value below 60mls/min might indicate kidney disease and will be flagged. For additional information, see Lrary et al, Am J Kidney Dis. 2021;79(2):268- 288, A Unifying Approach for GFR estimation: Recommendations of the NKF-ASN Task Force on Reassessing the Inclusion of Race in Diagnosing Kidney Disease . Globulin, Total 3.7 2.1 - 4.2 g/dL 04/09/2024 9:34 AM [facility] A/G Ratio 0.8(L) 1.5 - 3.0 04/09/2024 9:34 AM EDT [facility] Blood Structure of peripheral vein / Unknown Venipuncture / Unknown 04/09/2024 8:51 AM EDT 04/09/2024 8:52 AM EDT Salo Whyte MD LAB BLOOD ORDERABLES Final Result [facility] [address] [place] [address], documented in this encounter Visit Diagnoses Diagnosis Acute respiratory failure with hypoxia (HCC) No diagnosis documented in this encounter Additional Health Concerns Infection Onset Date Last Indicated Resolved Time 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
--- OUTSIDE RECORDS SUMMARY | 2025-03-08 21:09 | XMS_ITS | Encounter Summary ---
Author Organization [facility] Address [address] [place] [address] Care Team Providers Care Radiology Physician Assistant Name Role Phone Uday Sheehan MD Primary Care Provider [phone] Encounter Details Date Type Department Care Team (Late st Contact Info) Description 06/21/2024 Lab Requisition [facility] [address] [place] [address] Pearl Garcia MD [address] [place] [address] Unspecified atrial fibrillation (CMS/HCC V24, [...] mmol/L LAB CHEMISTRY METHOD 06/24/2024 12:29 PM [facility] Potassium 3.8 3.5 - 5.5 mmol/L LAB CHEMISTRY METHOD 06/24/2024 12:29 PM [facility] Chloride 114(H) 96 - 110 mmol/L LAB CHEMISTRY METHOD 06/24/2024 12:29 PM [facility] CO2 24 21 - 32 mmol/L LAB CHEMISTRY METHOD 06/24/2024 12:29 PM [facility] Anion Gap 8 3 - 11 LAB CHEMISTRY METHOD 06/24/2024 12:29 PM [facility] Glucose 99 70 - 100 mg/dL LAB CHEMISTRY METHOD 06/24/2024 12:29 PM [facility] BUN 59(H) 5 - 25 mg/dL LAB CHEMISTRY METHOD 06/24/2024 12:29 PM [facility] Creatinine 2.52(H) 0.70 - 1.30 mg/dL LAB CHEMISTRY METHOD 06/24/2024 12:29 PM [facility] eGFR 24(L) >=60 mL/min/1. 73m2 LAB CHEMISTRY METHOD 06/24/2024 12:29 PM [facility] Comment:Calculation based on the Chronic Kidney Disease Epidemiology Collaboration (CKD-EPI) equation refit without adjustment for race. BUN/Creatinine Ratio 23.4 LAB CHEMISTRY METHOD 06/24/2024 12:29 PM [facility] Calcium 9.2 8.5 - 10.5 mg/dL LAB CHEMISTRY METHOD 06/24/2024 12:29 PM [facility] AST (SGOT) 82(H) 10 - 42 unit/L LAB CHEMISTRY METHOD 06/24/2024 12:29 PM [facility] ALT (SGPT) 66(H) 10 - 60 unit/L LAB CHEMISTRY METHOD 06/24/2024 12:29 PM [facility] Alkaline Phosphatase 113 42 - 121 unit/L LAB CHEMISTRY METHOD 06/24/2024 12:29 PM [facility] Total Protein 6.5 6.0 - 8.0 g/dL LAB CHEMISTRY METHOD 06/24/2024 12:29 PM [facility] Albumin 1.7(L) 3.2 - 5.0 g/dL LAB CHEMISTRY METHOD 06/24/2024 12:29 PM [facility] Total Bilirubin 0.5 0.0 - 1.4 mg/dL LAB CHEMISTRY METHOD 06/24/2024 12:29 PM [facility] Blood Venous blood specimen / Unknown Venipuncture / Unknown 06/24/2024 6:49 AM EST 06/24/2024 10:18 AM EST us Pearl Garcia MD LAB BLOOD ORDERABLES Final Resul t [facility] [address] [place] [address], * (ABNORMAL) Complete blood count (06/24/2024 6:49 AM EST) WBC 10.9(H) 4.8 - 10.8 K/[facility] LAB HEMETOLOGY METHOD 06/24/2024 10:45 AM [facility] RBC 3.00(L) 4.50 - 5.50 M/[facility] LAB HEMETOLOGY METHOD 06/24/2024 10:45 AM [facility] Hemoglobin 7.6(L) 13.5 - 17.5 g/dL LAB HEMETOLOGY METHOD 06/24/2024 10:45 AM [facility] Hematocrit 26.8(L) 42.0 - 54.0 % LAB HEMETOLOGY METHOD 06/24/2024 10:45 AM [facility] MCV 90.5 79.0 - 98.0 FL LAB HEMETOLOGY METHOD 06/24/2024 10:45 AM [facility] MCH 25.7(L) 27.0 - 32.0 pcg LAB HEMETOLOGY METHOD 06/24/2024 10:45 AM EST [facility] MCHC 28.4(L) 32.0 - 37.0 g/dL LAB HEMETOLOGY METHOD 06/24/2024 10:45 AM [facility] RDW 17.5(H) 11.0 - 15.0 % LAB HEMETOLOGY METHOD 06/24/2024 10:45 AM EST [facility] Platelets 239 130 - 400 K/mcL LAB HEMETOLOGY METHOD 06/24/2024 10:45 AM EST [facility] MPV 9.8 7.0 - 11.0 FL LAB HEMETOLOGY METHOD 06/24/2024 10:45 AM [facility] NRBC 0.0 <1.0 % LAB HEMETOLOGY METHOD 06/24/2024 10:45 AM [facility] NRBC Absolute 0.00 <0.10 K/mcL LAB HEMETOLOGY METHOD 06/24/2024 10:45 AM [facility] Blood Venous blood specimen / Unknown Venipuncture / Unknown 06/24/2024 6:49 AM EST 06/24/2024 10:28 AM EST Pearl Garcia MD LAB BLOOD ORDERABLES Final Resul t [facility] [address] [place] [address], documented in this encounter Visit Diagnoses Diagnosis Unspecified atrial fibrillation (CMS/HCC V24, CMS/HCC V28) Essential (primary) hypertension Unspecified essential hypertension documented in this encounter Additional Health Concerns Infection Onset Date Last Indicated Resolved Time ESBL 06/22/2024 06/22/2024 documented as of this encounter Care Teams Radiology Physician Assistant Relationship Specialty Start Date End Date Uday Sheehan MD [address] [facility] [address] Donna [place] PCP - General Cheese Blender 12/19/16 documented as of this encounter
--- OUTSIDE RECORDS SUMMARY | 2025-03-08 21:09 | XMS_ITS | Continuity of Care Document ---
Author Organization [facility] [address] [place] [address] Phone [phone] Social History Type Date Description Comments Sex Male Sex Unknown Medical Devices Description No Information Available Encounters Description No Information Available Assessments Description No Information Available Plan of Treatment No Information Available Functional Status Description No Information Available Mental Status Description No Information Available Referrals Description No Information Available
--- OUTSIDE RECORDS SUMMARY | 2025-03-08 21:09 | XMS_ITS | Encounter Summary ---
Author Organization [facility] Address [address] [place] [address] Care Team Providers Care Transaction Coordinator Name Role Phone Uday Sheehan Primary Care Provider [phone] Encounter Details Date Type Department Care Team (Late st Contact Info) Description 04/15/2024 Lab Requisition [facility] [address] [place] [address] Salo Whyte MD [address] [place] [address] Acute respiratory failure, unspecified whether with hypoxia [...] - 10.8 10*3/uL 04/15/2024 12:45 PM EDT [facility] RBC 2.94(L) 4.70 - 6.10 10*6/uL 04/15/2024 12:45 PM EDT [facility] Hemoglobin 8.1(L) 13.7 - 16.5 g/dL 04/15/2024 12:45 PM EDT [facility] Hematocrit 26.2(L) 40.5 - 48.5 % 04/15/2024 12:45 PM EDT [facility] MCV 89.1 80.0 - 94.0 fL 04/15/2024 12:45 PM EDT [facility] MCH 27.6 26.0 - 34.0 pg 04/15/2024 12:45 PM EDT [facility] MCHC 30.9(L) 31.0 - 36.0 g/dL 04/15/2024 12:45 PM EDT [facility] RDW 17.3(H) 12.0 - 15.0 % 04/15/2024 12:45 PM EDT [facility] RDW Standard Deviation 55.5(H) 35.1 - 43.9 fL 04/15/2024 12:45 PM EDT [facility] Platelets 216 140 - 440 10*3/uL 04/15/2024 12:45 PM EDT [facility] MPV 10.4 9.4 - 12.4 fL 04/15/2024 12:45 PM EDT [facility] Neutrophil % 60.4 50.0 - 75.0 % 04/15/2024 12:45 PM EDT [facility] Immature Grans % 0.3 0.0 - 0.9 % 04/15/2024 12:45 PM EDT [facility] Lymphocyte % 21.7 20.0 - 44.0 % 04/15/2024 12:45 PM EDT [facility] Monocyte % 12.0 0.0 - 14.0 % 04/15/2024 12:45 PM EDT [facility] Eosinophil % 5.1(H) 0.0 - 5.0 % 04/15/2024 12:45 PM EDT [facility] Basophil % 0.5 0.0 - 2.0 % 04/15/2024 12:45 PM EDT [facility] Neutrophil # 3.88 1.80 - 7.70 10*3/uL 04/15/2024 12:45 PM EDT [facility] Immature Grans # <0.03 0.00 - 0.03 10*3/uL 04/15/2024 12:45 PM EDT [facility] Lymphocyte # 1.40 1.00 - 4.75 10*3/uL 04/15/2024 12:45 PM EDT [facility] Monocyte # 0.80 0.00 - 6.00 10*3/uL 04/15/2024 12:45 PM EDT [facility] Eosinophil # 0.30 0.00 - 0.80 10*3/uL 04/15/2024 12:45 PM EDT [facility] Basophil # <0.03 0.00 - 0.20 10*3/uL 04/15/2024 12:45 PM EDT [facility] nRBC % 0.0 0 - 0 /100 WBCs 04/15/2024 12:45 PM EDT [facility] nRBC # <0.01 0.00 - 0.13 10*3/uL 04/15/2024 12:45 PM EDT [facility] Blood Structure of peripheral vein / Unknown Venipuncture / Unknown 04/15/2024 12:05 PM EDT 04/15/2024 12:05 PM EDT Salo Whyte MD LAB BLOOD ORDERABLES Final Result Performing Organization Address [facility] Co de Phone Number [facility] [address] [address], [place] [phone] * N-terminal ProBrain Natriuretic Peptide - [facility] & [facility]/[place] Only (04/15/2024 12:05 PM EDT) Pro-B-Type Natriuretic Peptide 457 <=1,800 pg/mL 04/15/2024 12:51 PM EDT [facility] Comment: RULE IN CHF >/= [...] BLOOD ORDERABLES Final Result Performing Organization Address [facility] Co de Phone Number [facility] [address] [address], [place] [phone] * (ABNORMAL) Comprehensive Metabolic Panel (04/15/2024 12:05 PM EDT) NA 140 136 - 145 mmol/L 04/15/2024 12:59 PM EDT [facility] K 4.1 3.5 - 5.1 mmol/L 04/15/2024 12:59 PM EDT [facility] Cl 97(L) 98 - 109 mmol/L 04/15/2024 12:59 PM EDT [facility] CO2 33(H) 22 - 32 mmol/L 04/15/2024 12:59 PM EDT [facility] Anion Gap 14 >=0 04/15/2024 12:59 PM EDT [facility] Glucose 94 60 - 99 mg/dL 04/15/2024 12:59 PM EDT [facility] Creatinine 1.13(H) 0.50 - 1.12 mg/dL 04/15/2024 12:59 PM EDT [facility] Calcium 9.5 8.4 - 10.4 mg/dL 04/15/2024 12:59 PM EDT [facility] Total Protein 6.6 6.6 - 8.7 g/dL 04/15/2024 12:59 PM EDT [facility] Albumin 3.1(L) 3.5 - 5.0 g/dL 04/15/2024 12:59 PM EDT [facility] Bilirubin, Total 0.3 0.2 - 1.2 mg/dL 04/15/2024 12:59 PM EDT [facility] Alkaline Phosphatase 105 40 - 129 U/L 04/15/2024 12:59 PM EDT [facility] AST 29 0 - 40 U/L 04/15/2024 12:59 PM T [facility] ALT 25 <=41 U/L 04/15/2024 12:59 PM T [facility] BUN 41(H) 8 - 23 mg/dL 04/15/2024 12:59 PM T [facility] eGFR 64 >=60 mL/min/1. 73m2 04/15/2024 12:59 PM T [facility] Comment:The estimated glomer ular filtration [...] - 4.2 g/dL 04/15/2024 12:59 PM EDT [facility] A/G Ratio 0.9(L) 1.5 - 3.0 04/15/2024 12:59 PM EDT [facility] Blood Structure of peripheral vein / Unknown Venipuncture / Unknown 04/15/2024 12:05 PM EDT 04/15/2024 12:05 PM EDT us Salo Whyte MD LAB BLOOD ORDERABLES Final Result [facility] [address] [facility] [address] [place] [address], documented in this encounter Visit Diagnoses Diagnosis Acute respiratory failure, unspecified whether with hypoxia or hypercapnia (HCC) No diagnosis documented in this encounter Additional Health Concerns Infection Onset Date Last Indicated Resolved Time 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
--- OUTSIDE RECORDS SUMMARY | 2025-03-08 21:09 | XMS_ITS | Encounter Summary ---
Author Organization [facility] Address [address] [place] [address] Care Team Providers Care Residential Concierge Name Role Phone Uday Sheehan Primary Care Provider [phone] Encounter Details Date Type Department Care Team (Late st Contact Info) Description 03/17/2024 Lab Requisition [facility] [address] [place] [address] Cecilio Bautista PA [address] [place] [address] Acute respiratory failure with hypoxia Social History [...] this encounter Procedures * Due to [place] [employer] law, this organization might not be sharing negative HIV tests. Procedure Name Priority Date/Time Associated Diagnosis Comments C DIFF TOXIN B PCR W/REFLEX TO GDH & TOXIN (AMBULATORY) [facility] Routine 03/17/2024 7:46 AM EDT Acute respiratory failure with hypoxia (HCC) documented in this encounter Results * Due to [facility] law, this organization might not be sharing negative HIV tests. * C diff Toxin B PCR w/Reflex to GDH & Toxin (03/17/2024 7:46 AM EDT) C diff PCR Not Detected Not Detected [facility] [employer] 03/17/2024 9:01 AM EDT [facility] Stool Rectal route / Unknown 03/17/2024 7:46 AM EDT 03/17/2024 7:46 AM EDT Narrative [facility] - 03/17/2024 9:01 AM EDT Methodology: Real-time polymerase chain reaction (PCR) to detect the toxin B gene of toxigenic Clostridioides difficile (C. difficile) in unformed (liquid or soft) stool specimens obtained from patients suspected of having C. difficile infections (CDI). Cecilio [facility] BODY FLUIDS AND STOOLS O RDERABLES Final Result Performing Organization Address City/State/[facility] Co de Phone Number [facility] [address] [place] [place] [address], documented in this encounter Visit Diagnoses Diagnosis [...] documented as of this encounter Care Teams Residential Concierge Relationship Specialty Start Date End Date Uday Sheehan [address] [place] [address] [place] [address] PCP - General Internal Medicine 03/27/24 documented as of this encounter
--- OUTSIDE RECORDS SUMMARY | 2025-03-08 21:09 | XMS_ITS | Encounter Summary ---
[facility] Organization [facility] Address [address] [place] [address] Care Team Providers Care Pharmacy Intern Name Role Phone Uday Sheehan MD Primary Care Provider [phone] Encounter Details Date Type Department Care Team (Late st Contact Info) Description 06/26/[address] [facility] - Main Lab [address] [place] [id number] Natanael Rodney PA [address] [place] [phone] Anemia, unspecified Social History Tobacco Use Types [...] AM EST) WBC 10.2 4.8 - 10.8 K/[facility] LAB HEMETOLOGY METHOD 06/26/2024 1:31 PM EST [facility] LAB RBC 2.70(L) 4.50 - 5.50 M/[facility] LAB HEMETOLOGY METHOD 06/26/2024 1:31 PM EST [facility] LAB Hemoglobin 7.1(L) 13.5 - 17.5 g/dL LAB HEMETOLOGY METHOD 06/26/2024 1:[address] [facility] LAB Hematocrit 23.9(L) 42.0 - 54.0 % LAB HEMETOLOGY METHOD 06/26/2024 1:[address] [facility] LAB MCV 88.2 79.0 - 98.0 FL LAB HEMETOLOGY METHOD 06/26/2024 1:[address] [facility] LAB MCH 26.2(L) 27.0 - 32.0 pcg LAB HEMETOLOGY METHOD 06/26/2024 1:[address] [facility] LAB MCHC 29.7(L) 32.0 - 37.0 g/dL LAB HEMETOLOGY METHOD 06/26/2024 1:[address] [facility] LAB RDW 18.0(H) 11.0 - 15.0 % LAB HEMETOLOGY METHOD 06/26/2024 1:[address] [facility] LAB Platelets 196 130 - 400 K/mcL LAB HEMETOLOGY METHOD 06/26/2024 1:[address] [facility] LAB MPV 10.2 7.0 - 11.0 FL LAB HEMETOLOGY METHOD 06/26/2024 1:[address] [facility] LAB NRBC 0.0 <1.0 % LAB HEMETOLOGY METHOD 06/26/2024 1:[address] [facility] LAB NRBC Absolute 0.00 <0.10 K/mcL LAB HEMETOLOGY METHOD 06/26/2024 1:[address] [facility] Blood Venous blood specimen / Unknown Venipuncture / Unknown 06/26/2024 5:40 AM EST 06/26/2024 12:19 PM EST us Natanael ZHU LAB BLOOD ORDERABLES Final Re sult [facility] LAB [address] [place] [address], documented in this encounter Visit Diagnoses Diagnosis Anemia, unspecified documented in this encounter Additional Health Concerns Infection Onset Date Last Indicated Resolved Time ESBL 06/22/2024 06/22/2024 documented as of this encounter Care Teams Pharmacy Intern Relationship Specialty Start Date End Date Uday Sheehan MD [address] [place] [address] Dr Donna [place] PCP - General Solar Installation Technician 12/19/16 documented as of this encounter
--- OUTSIDE RECORDS SUMMARY | 2025-03-08 21:09 | XMS_ITS | Encounter Summary ---
Author Organization [facility] Address [address] [place] [address] Care Team Providers Care Laser Engineer Name Role Phone Uday Sheehan Primary Care Provider [phone] Encounter Details Date Type Department Care Team (Late st Contact Info) Description 05/21/2024 Orders Only [facility] Interventional Radiology [address] [place] [id number] Cedric Blank MD [address] [place] [address] Social History Tobacco Use Types Packs/Day Years [...] documented as of this encounter Care Teams Laser Engineer Relationship Specialty Start Date End Date Uday Sheehan [address] [place] [address] [place] [address] PCP - General Internal Medicine 03/27/24 documented as of this encounter
--- OUTSIDE RECORDS SUMMARY | 2025-03-08 21:09 | XMS_ITS | Encounter Summary ---
Author Organization [facility] Address [address] [place] [address] Care Team Providers Care Glass Handler Name Role Phone Uday Sheehan Primary Care Provider [phone] Encounter Details Date Type Department Care Team (Late st Contact Info) Description 05/28/2024 Lab Requisition [facility] Lab Department [address] [place] [address] Lidia Barry, CB [address] [place] [address] Acute and chronic respiratory failure with hypoxia; [...] this encounter Procedures * Due to [place] [employer] law, this organization might not be sharing negative HIV tests. Procedure Name Priority Date/Time Associated Diagnosis Comments TROPONIN T HIGH SENSITIVITY Routine 05/28/2024 8:45 PM EST Acute and chronic respiratory failure with hypoxia (HCC) No diagnosis documented in this encounter Results * Due to [place] [employer] law, this organization might not be sharing negative HIV tests. * (ABNORMAL) Troponin T, High Sensitivity (05/28/2024 8:45 PM EST) Troponin T High Sensitivity 35(H) 6 - 22 ng/L 05/28/2024 9:42 PM EST [facility] Comment: Bg-Rsbwaryo-B level of 52 ng/L or higher at [...] be evaluated in line with the 4th Reading Definition of AMI. 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
--- OUTSIDE RECORDS SUMMARY | 2025-03-08 21:09 | XMS_ITS | Encounter Summary ---
Author Organization [facility] Address [address] [place] [address] Care Team Providers Care Rivet Heater Gas Name Role Phone Uday Sheehan Primary Care Provider [phone] Encounter Details Date Type Department Care Team (Late st Contact Info) Description 03/16/2024 Lab Requisition [facility] [place] [facility] Lab [address] [place] [address] Cecilio Bautista PA [address] [place] [address] Acute respiratory failure with hypoxia; No diagnosis [...] this encounter Procedures * Due to [place] [employer] law, this organization might not be sharing negative HIV tests. Procedure Name Priority Date/Time Associated Diagnosis Comments VANCOMYCIN, TROUGH Routine 03/16/2024 11 :54 AM EDT Acute respiratory failure with hypoxia (HCC) No diagnosis documented in this encounter Results * Due to [place] [employer] law, this organization might not be sharing negative HIV tests. * (ABNORMAL) Vancomycin, Trough (03/16/2024 11:54 AM EDT) Vancomycin Trough 8.2(L) 10.0 - 20.0 ug/mL 03/16/2024 1:58 PM EDT [facility] LAB Blood Structure of peripheral vein / Unknown 03/16/2024 11:54 AM EDT 03/16/2024 11:54 AM EDT Cecilio ZHU LAB BLOOD ORDERABLES Final R esult [facility] [address] [place] [address], [place] [phone] documented in this encounter Visit Diagnoses Diagnosis [...] documented as of this encounter Care Teams Rivet [employer] Relationship Specialty Start Date End Date Uday Sheehan [address] [place] [address] [place] [address] PCP - General Internal Medicine 03/27/24 documented as of this encounter
--- OUTSIDE RECORDS SUMMARY | 2025-03-08 21:09 | XMS_ITS | Encounter Summary ---
Author Organization [facility] Address [address] [place] [address] Care Team Providers Care Tone Artist Apprentice Name Role Phone Uday Sheehan Primary Care Provider [phone] Encounter Details Date Type Department Care Team (Late st Contact Info) Description 03/15/2024 Lab Requisition [facility] Lab [address] [place] [address] Lidia Barry, CB [address] [place] [address] Acute and chronic respiratory failure with hypoxia; [...] - 10.8 10*3/uL 03/15/2024 9:07 AM EDT [facility] RBC 3.05(L) 4.70 - 6.10 10*6/uL 03/15/2024 9:07 AM EDT [facility] Hemoglobin 8.5(L) 13.7 - 16.5 g/dL 03/15/2024 9:07 AM EDT [facility] Hematocrit 26.2(L) 40.5 - 48.5 % 03/15/2024 9:07 AM EDT [facility] MCV 85.9 80.0 - 94.0 fL 03/15/2024 9:07 AM EDT [facility] MCH 27.9 26.0 - 34.0 pg 03/15/2024 9:07 AM EDT [facility] MCHC 32.4 31.0 - 36.0 g/dL 03/15/2024 9:07 AM EDT [facility] RDW 15.2(H) 12.0 - 15.0 % 03/15/2024 9:07 AM EDT [facility] RDW Standard Deviation 47.7(H) 35.1 - 43.9 fL 03/15/2024 9:07 AM EDT [facility] Platelets 149 140 - 440 10*3/uL 03/15/2024 9:07 AM EDT [facility] MPV 10.3 9.4 - 12.4 fL 03/15/2024 9:07 AM EDT [facility] Neutrophil % 59.2 50.0 - 75.0 % 03/15/2024 9:07 AM EDT [facility] Immature Grans % 0.4 0.0 - 0.9 % 03/15/2024 9:07 AM EDT [facility] Lymphocyte % 24.8 20.0 - 44.0 % 03/15/2024 9:07 AM EDT [facility] Monocyte % 10.9 0.0 - 14.0 % 03/15/2024 9:07 AM EDT [facility] Eosinophil % 4.1 0.0 - 5.0 % 03/15/2024 9:07 AM EDT [facility] Basophil % 0.6 0.0 - 2.0 % 03/15/2024 9:07 AM EDT [facility] Neutrophil # 4.23 1.80 - 7.70 10*3/uL 03/15/2024 9:07 AM EDT [facility] Immature Grans # 0.03 0.00 - 0.03 10*3/uL 03/15/2024 9:07 AM EDT [facility] Lymphocyte # 1.80 1.00 - 4.75 10*3/uL 03/15/2024 9:07 AM EDT [facility] Monocyte # 0.80 0.00 - 6.00 10*3/uL 03/15/2024 9:07 AM EDT [facility] Eosinophil # 0.30 0.00 - 0.80 10*3/uL 03/15/2024 9:07 AM EDT [facility] Basophil # <0.03 0.00 - 0.20 10*3/uL 03/15/2024 9:07 AM EDT [facility] nRBC % 0.0 0 - 0 /100 WBCs 03/15/2024 9:07 AM EDT [facility] nRBC # <0.01 0.00 - 0.13 10*3/uL 03/15/2024 9:07 AM EDT [facility] Blood Structure of peripheral vein / Unknown 03/15/2024 8:31 AM EDT 03/15/2024 8:31 AM EDT [facility] LAB BLOOD ORDERABLES Final R esult Performing Organization Address City/[facility]/ZIP Co de Phone Number [facility] [address] [address], [place] [phone] * Ammonia (03/15/2024 8:31 AM EDT) Ammonia 17 16 - 60 umol/L 03/15/2024 8:55 AM EDT [facility] Blood Structure of peripheral vein / Unknown 03/15/2024 8:31 AM EDT 03/15/2024 8:31 AM EDT us [facility] LAB BLOOD ORDERABLES Final R esult Performing Organization Address City/[facility]/ZIP Co de Phone Number [facility] [address] [address], [place] [phone] * (ABNORMAL) Comprehensive Metabolic Panel (03/15/2024 8:31 AM EDT) NA 137 136 - 145 mmol/L 03/15/2024 9:35 AM EDT [facility] K 3.7 3.5 - 5.1 mmol/L 03/15/2024 9:35 AM EDT [facility] Cl 98 98 - 109 mmol/L 03/15/2024 9:35 AM EDT [facility] CO2 31 23 - 32 mmol/L 03/15/2024 9:35 AM EDT [facility] Anion Gap 12 >=0 03/15/2024 9:35 AM EDT [facility] Glucose 108(H) 60 - 99 mg/dL 03/15/2024 9:35 AM EDT [facility] Creatinine 1.07 0.50 - 1.12 mg/dL 03/15/2024 9:35 AM EDT [facility] Calcium 9.0 8.4 - 10.4 mg/dL 03/15/2024 9:35 AM EDT [facility] Total Protein 5.8(L) 6.6 - 8.7 g/dL 03/15/2024 9:35 AM EDT [facility] Albumin 3.2(L) 3.5 - 5.0 g/dL 03/15/2024 9:35 AM EDT [facility] Bilirubin, Total 0.4 0.2 - 1.2 mg/dL 03/15/2024 9:35 AM EDT [facility] Alkaline Phosphatase 112 40 - 129 U/L 03/15/2024 9:35 AM EDT [facility] AST 28 0 - 40 U/L 03/15/2024 9:35 AM EDT [facility] Comment:[place] REVIEWED ALT 35 <=41 U/L 03/15/2024 9:35 AM EDT [facility] BUN 16 8 - 23 mg/dL 03/15/2024 9:35 AM EDT [facility] eGFR 68 >=60 mL/min/1. 73m2 03/15/2024 9:35 AM EDT [facility] Comment:The estimated glomer [...] - 4.2 g/dL 03/15/2024 9:35 AM EDT [facility] A/G Ratio 1.2(L) 1.5 - 3.0 03/15/2024 9:35 AM EDT [facility] Blood Structure of peripheral vein / Unknown 03/15/2024 8:31 AM EDT 03/15/2024 8:31 AM EDT us Lidia [place] BOSS [employer]ER LAB BLOOD ORDERABLES Final R esult [facility] [address] [place] [address], documented in this encounter Visit Diagnoses Diagnosis [...] documented as of this encounter Care Teams Tone Artist Apprentice Relationship Specialty Start Date End Date Uday Sheehan [address] [place] [address] [place] [address] PCP - General Internal Medicine 03/27/24 documented as of this encounter
--- OUTSIDE RECORDS SUMMARY | 2025-03-08 21:09 | XMS_ITS | Encounter Summary ---
Author Organization [facility] Address [address] [place] [address] Care Team Providers Care Restaurant Cook Name Role Phone Uday Sheehan Primary Care Provider [phone] Encounter Details Date Type Department Care Team (Late st Contact Info) Description 03/18/2024 Lab Requisition [facility] Lab [address] [place] [address] Cecilio Bautista PA [address] [place] [address] Acute respiratory failure with hypoxia; No diagnosis [...] - 10.8 10*3/uL 03/18/2024 10:10 AM EDT [facility] RBC 2.81(L) 4.70 - 6.10 10*6/uL 03/18/2024 10:10 AM EDT [facility] Hemoglobin 8.1(L) 13.7 - 16.5 g/dL 03/18/2024 10:10 AM EDT [facility] Hematocrit 23.6(L) 40.5 - 48.5 % 03/18/2024 10:10 AM EDT [facility] MCV 84.0 80.0 - 94.0 fL 03/18/2024 10:10 AM EDT [facility] MCH 28.8 26.0 - 34.0 pg 03/18/2024 10:10 AM EDT [facility] MCHC 34.3 31.0 - 36.0 g/dL 03/18/2024 10:10 AM EDT [facility] RDW 15.1(H) 12.0 - 15.0 % 03/18/2024 10:10 AM EDT [facility] RDW Standard Deviation 45.7(H) 35.1 - 43.9 fL 03/18/2024 10:10 AM EDT [facility] Platelets 159 140 - 440 10*3/uL 03/18/2024 10:10 AM EDT [facility] MPV 10.1 9.4 - 12.4 fL 03/18/2024 10:10 AM EDT [facility] Neutrophil % 55.7 50.0 - 75.0 % 03/18/2024 10:10 AM EDT [facility] Immature Grans % 0.3 0.0 - 0.9 % 03/18/2024 10:10 AM EDT [facility] Lymphocyte % 28.2 20.0 - 44.0 % 03/18/2024 10:10 AM EDT [facility] Monocyte % 12.5 0.0 - 14.0 % 03/18/2024 10:10 AM EDT [facility] Eosinophil % 2.9 0.0 - 5.0 % 03/18/2024 10:10 AM EDT [facility] Basophil % 0.4 0.0 - 2.0 % 03/18/2024 10:10 AM EDT [facility] Neutrophil # 4.10 1.80 - 7.70 10*3/uL 03/18/2024 10:10 AM EDT [facility] Immature Grans # <0.03 0.00 - 0.03 10*3/uL 03/18/2024 10:10 AM EDT [facility] Lymphocyte # 2.10 1.00 - 4.75 10*3/uL 03/18/2024 10:10 AM EDT [facility] Monocyte # 0.90 0.00 - 6.00 10*3/uL 03/18/2024 10:10 AM EDT [facility] Eosinophil # 0.20 0.00 - 0.80 10*3/uL 03/18/2024 10:10 AM EDT [facility] Basophil # <0.03 0.00 - 0.20 10*3/uL 03/18/2024 10:10 AM EDT [facility] nRBC % 0.0 0 - 0 /100 WBCs 03/18/2024 10:10 AM EDT [facility] nRBC # <0.01 0.00 - 0.13 10*3/uL 03/18/2024 10:10 AM EDT [facility] Blood Structure of peripheral vein / Unknown 03/18/2024 9:25 AM EDT 03/18/2024 9:25 AM EDT Cecilio ZHU LAB BLOOD ORDERABLES Final R esult Performing Organization Address [facility]/ZIP Co de Phone Number [facility] [address] [address], [place] [phone] * Vancomycin, Trough (03/18/2024 9:25 AM EDT) Vancomycin Trough 15.6 10.0 - 20.0 ug/mL 03/18/2024 10:36 AM EDT [facility] Blood Structure of peripheral vein / Unknown 03/18/2024 9:25 AM EDT 03/18/2024 9:25 AM EDT Cecilio Bautista [place] LAB BLOOD ORDERABLES Final R [facility] Performing Organization Address [facility] Co de Phone Number [facility] [address] [address], [place] [phone] * (ABNORMAL) Comprehensive Metabolic Panel (03/18/2024 9:25 AM EDT) NA 135(L) 136 - 145 mmol/L 03/18/2024 10:42 AM EDT [facility] K 3.6 3.5 - 5.1 mmol/L 03/18/2024 10:42 AM EDT [facility] Cl 96(L) 98 - 109 mmol/L 03/18/2024 10:42 AM EDT [facility] CO2 27 23 - 32 mmol/L 03/18/2024 10:42 AM EDT [facility] Anion Gap 16 >=0 03/18/2024 10:42 AM EDT [facility] Glucose 106(H) 60 - 99 mg/dL 03/18/2024 10:42 AM EDT [facility] Creatinine 1.00 0.50 - 1.12 mg/dL 03/18/2024 10:42 AM EDT [facility] Calcium 8.7 8.4 - 10.4 mg/dL 03/18/2024 10:42 AM EDT [facility] Total Protein 6.1(L) 6.6 - 8.7 g/dL 03/18/2024 10:42 AM EDT [facility] Albumin 3.1(L) 3.5 - 5.0 g/dL 03/18/2024 10:42 AM EDT [facility] Bilirubin, Total 0.5 0.2 - 1.2 mg/dL 03/18/2024 10:42 AM EDT [facility] Alkaline Phosphatase 107 40 - 129 U/L 03/18/2024 10:42 AM EDT [facility] AST 32 0 - 40 U/L 03/18/2024 10:42 AM EDT [facility] ALT 25 <=41 U/L 03/18/2024 10:42 AM EDT [facility] BUN 21 8 - 23 mg/dL 03/18/2024 10:42 AM EDT [facility] eGFR 74 >=60 mL/min/1. 73m2 03/18/2024 10:42 AM EDT [facility] Comment:The estimated glomer ular [...] - 4.2 g/dL 03/18/2024 10:42 AM EDT [facility] A/G Ratio 1.0(L) 1.5 - 3.0 03/18/2024 10:42 AM T [facility] Blood Structure of peripheral vein / Unknown 03/18/2024 9:25 AM EDT 03/18/2024 9:25 AM EDT us Cecilio ZHU LAB BLOOD ORDERABLES Final R esult [facility] [address] [place] [address], [place] [phone] documented in this encounter Visit Diagnoses Diagnosis [...] documented as of this encounter Care Teams Restaurant Cook Relationship Specialty Start Date End Date Uday Sheehan [address] [place] [address] [place] [address] PCP - General Internal Medicine 03/27/24 documented as of this encounter
--- OUTSIDE RECORDS SUMMARY | 2025-03-08 21:09 | XMS_ITS | Encounter Summary ---
Author Organization [facility] Address [address] [place] [address] Care Team Providers Care Under Baster Name Role Phone Uday Sheehan Primary Care Provider Encounter Details Date Type Department Care Team (Late st Contact Info) Description 03/07/2024 Lab Requisition [facility] [address] [place] [address] Valarie Pierson MD [address] [place] [address] Acute and chronic respiratory failure with hypoxia; [...] - 10.8 10*3/uL 03/07/2024 12:12 PM EDT [facility] RBC 3.39(L) 4.70 - 6.10 10*6/uL 03/07/2024 12:12 PM EDT [facility] Hemoglobin 9.4(L) 13.7 - 16.5 g/dL 03/07/2024 12:12 PM EDT [facility] Hematocrit 29.9(L) 40.5 - 48.5 % 03/07/2024 12:12 PM EDT [facility] MCV 88.2 80.0 - 94.0 fL 03/07/2024 12:12 PM EDT [facility] MCH 27.7 26.0 - 34.0 pg 03/07/2024 12:12 PM EDT [facility] MCHC 31.4 31.0 - 36.0 g/dL 03/07/2024 12:12 PM EDT [facility] RDW 15.5(H) 12.0 - 15.0 % 03/07/2024 12:12 PM EDT [facility] RDW Standard Deviation 50.0(H) 35.1 - 43.9 fL 03/07/2024 12:12 PM EDT [facility] Platelets 174 140 - 440 10*3/uL 03/07/2024 12:12 PM EDT [facility] MPV 10.5 9.4 - 12.4 fL 03/07/2024 12:12 PM EDT [facility] Neutrophil % 59.4 50.0 - 75.0 % 03/07/2024 12:12 PM EDT [facility] Immature Grans % 0.7 0.0 - 0.9 % 03/07/2024 12:12 PM EDT [facility] Lymphocyte % 23.8 20.0 - 44.0 % 03/07/2024 12:12 PM EDT [facility] Monocyte % 9.9 0.0 - 14.0 % 03/07/2024 12:12 PM EDT [facility] Eosinophil % 5.7(H) 0.0 - 5.0 % 03/07/2024 12:12 PM EDT [facility] Basophil % 0.5 0.0 - 2.0 % 03/07/2024 12:12 PM EDT [facility] Neutrophil # 5.82 1.80 - 7.70 10*3/uL 03/07/2024 12:12 PM EDT [facility] Immature Grans # 0.07(H) 0.00 - 0.03 10*3/uL 03/07/2024 12:12 PM EDT [facility] Lymphocyte # 2.30 1.00 - 4.75 10*3/uL 03/07/2024 12:12 PM EDT [facility] Monocyte # 1.00 0.00 - 6.00 10*3/uL 03/07/2024 12:12 PM EDT [facility] Eosinophil # 0.60 0.00 - 0.80 10*3/uL 03/07/2024 12:12 PM EDT [facility] Basophil # 0.10 0.00 - 0.20 10*3/uL 03/07/2024 12:12 PM EDT [facility] nRBC % 0.0 0 - 0 /100 WBCs 03/07/2024 12:12 PM EDT [facility] nRBC # <0.01 0.00 - 0.13 10*3/uL 03/07/2024 12:12 PM EDT [facility] Blood Structure of peripheral vein / Unknown Venipuncture / Unknown 03/07/2024 11:28 AM EDT 03/07/2024 11:28 AM EDT us Valarie Pierson MD LAB BLOOD ORDERABLES Final Res ult [facility] [address] [facility] [address] [place] [address], [place] [phone] * (ABNORMAL) Comprehensive Metabolic Panel (03/07/2024 11:28 AM EDT) NA 138 136 - 145 mmol/L 03/07/2024 12:30 PM EDT [facility] K 3.4(L) 3.5 - 5.1 mmol/L 03/07/2024 12:30 PM EDT [facility] Cl 104 98 - 109 mmol/L 03/07/2024 12:30 PM EDT [facility] CO2 23 23 - 32 mmol/L 03/07/2024 12:30 PM EDT [facility] Anion Gap 14 >=0 03/07/2024 12:30 PM EDT [facility] Glucose 135(H) 60 - 99 mg/dL 03/07/2024 12:30 PM EDT [facility] Creatinine 1.28(H) 0.50 - 1.12 mg/dL 03/07/2024 12:30 PM EDT [facility] Calcium 9.4 8.4 - 10.4 mg/dL 03/07/2024 12:30 PM EDT [facility] Total Protein 6.7 6.6 - 8.7 g/dL 03/07/2024 12:30 PM EDT [facility] Albumin 3.3(L) 3.5 - 5.0 g/dL 03/07/2024 12:30 PM EDT [facility] Bilirubin, Total 0.5 0.2 - 1.2 mg/dL 03/07/2024 12:30 PM EDT [facility] Alkaline Phosphatase 112 40 - 129 U/L 03/07/2024 12:30 PM EDT [facility] AST 31 0 - 40 U/L 03/07/2024 12:30 PM EDT [facility] ALT 36 <=41 U/L 03/07/2024 12:30 PM EDT [facility] BUN 35(H) 8 - 23 mg/dL 03/07/2024 12:30 PM EDT [facility] eGFR 55(L) >=60 mL/min/1. 73m2 03/07/2024 12:30 PM EDT [facility] [...] - 4.2 g/dL 03/07/2024 12:30 PM EDT [facility] A/G Ratio 1.0(L) 1.5 - 3.0 03/07/2024 12:30 PM EDT [facility] Blood Structure of peripheral vein / Unknown Venipuncture / Unknown 03/07/2024 11:28 AM EDT 03/07/2024 11:28 AM EDT us Valarie Pierson MD LAB BLOOD ORDERABLES Final Res ult [facility] [address] [place] [address], documented in this encounter Visit Diagnoses Diagnosis [...] documented as of this encounter Care Teams Under Baster Relationship Specialty Start Date End Date Uday Sheehan [address] [place] [address] [place] [address] PCP - General Internal Medicine 03/27/24 documented as of this encounter
--- OUTSIDE RECORDS SUMMARY | 2025-03-08 21:09 | XMS_ITS | Encounter Summary ---
Author Organization [facility] Address [address] [place] [address] Care Team Providers Care Heeler Machine Name Role Phone Uday Sheehan Primary Care Provider [phone] Encounter Details Date Type Department Care Team (Late st Contact Info) Description 05/27/2024 Lab Requisition [facility] [address] [place] [address] Salo Whyte MD [address] [place] [address] Acute and chronic respiratory failure with hypoxia; [...] - 10.8 10*3/uL 05/27/2024 10:58 AM EST [facility] RBC 3.05(L) 4.70 - 6.10 10*6/uL 05/27/2024 10:58 AM EST [facility] Hemoglobin 8.4(L) 13.7 - 16.5 g/dL 05/27/2024 10:58 AM EST [facility] Hematocrit 26.6(L) 40.5 - 48.5 % 05/27/2024 10:58 AM EST [facility] MCV 87.2 80.0 - 94.0 fL 05/27/2024 10:58 AM EST [facility] MCH 27.5 26.0 - 34.0 pg 05/27/2024 10:58 AM EST [facility] MCHC 31.6 31.0 - 36.0 g/dL 05/27/2024 10:58 AM EST [facility] RDW 17.0(H) 12.0 - 15.0 % 05/27/2024 10:58 AM EST [facility] RDW Standard Deviation 54.3(H) 35.1 - 43.9 fL 05/27/2024 10:58 AM EST [facility] Platelets 147 140 - 440 10*3/uL 05/27/2024 10:58 AM EST [facility] MPV 10.1 9.4 - 12.4 fL 05/27/2024 10:58 AM EST [facility] Neutrophil % 57.4 50.0 - 75.0 % 05/27/2024 10:58 AM EST [facility] Immature Grans % 0.3 0.0 - 0.9 % 05/27/2024 10:58 AM [facility] Lymphocyte % 23.7 20.0 - 44.0 % 05/27/2024 10:58 AM EST [facility] Monocyte % 12.7 0.0 - 14.0 % 05/27/2024 10:58 AM EST [facility] Eosinophil % 5.6(H) 0.0 - 5.0 % 05/27/2024 10:58 AM EST [facility] Basophil % 0.3 0.0 - 2.0 % 05/27/2024 10:58 AM EST [facility] Neutrophil # 3.51 1.80 - 7.70 10*3/uL 05/27/2024 10:58 AM EST [facility] Immature Grans # <0.03 0.00 - 0.03 10*3/uL 05/27/2024 10:58 AM EST [facility] Lymphocyte # 1.50 1.00 - 4.75 10*3/uL 05/27/2024 10:58 AM EST [facility] Monocyte # 0.80 0.00 - 6.00 10*3/uL 05/27/2024 10:58 AM EST [facility] Eosinophil # 0.30 0.00 - 0.80 10*3/uL 05/27/2024 10:58 AM EST [facility] Basophil # <0.03 0.00 - 0.20 10*3/uL 05/27/2024 10:58 AM EST [facility] nRBC % 0.0 0 - 0 /100 WBCs 05/27/2024 10:58 AM EST [facility] nRBC # <0.01 0.00 - 0.13 10*3/uL 05/27/2024 10:58 AM EST [facility] Blood Structure of peripheral vein / Unknown Venipuncture / Unknown 05/27/2024 10:09 AM EST 05/27/2024 10:10 AM EST us Salo Whyte MD LAB BLOOD ORDERABLES Final Result Performing Organization Address City/State/[facility] Co de Phone Number [facility] [address] [place] [address] [address] [place] [address], [place] [phone] * (ABNORMAL) Comprehensive Metabolic Panel (05/27/2024 10:09 AM EST) NA 142 136 - 145 mmol/L 05/27/2024 11:11 AM EST [facility] K 3.9 3.5 - 5.1 mmol/L 05/27/2024 11:11 AM EST [facility] Cl 104 98 - 109 mmol/L 05/27/2024 11:11 AM EST [facility] CO2 30 22 - 32 mmol/L 05/27/2024 11:11 AM EST [facility] Anion Gap 12 >=0 05/27/2024 11:11 AM EST [facility] Glucose 99 60 - 99 mg/dL 05/27/2024 11:11 AM EST [facility] Creatinine 1.71(H) 0.50 - 1.12 mg/dL 05/27/2024 11:11 AM EST [facility] Calcium 9.4 8.4 - 10.4 mg/dL 05/27/2024 11:11 AM [facility] Total Protein 6.0(L) 6.6 - 8.7 g/dL 05/27/2024 11:11 AM EST [facility] Albumin 2.9(L) 3.5 - 5.0 g/dL 05/27/2024 11:11 AM EST [facility] Bilirubin, Total 0.3 0.2 - 1.2 mg/dL 05/27/2024 11:11 AM EST [facility] Alkaline Phosphatase 113 40 - 129 U/L 05/27/2024 11:11 AM EST [facility] AST 18 0 - 40 U/L 05/27/2024 11:11 AM EST [facility] ALT 12 <=41 U/L 05/27/2024 11:11 AM EST [facility] BUN 41(H) 8 - 23 mg/dL 05/27/2024 11:11 AM EST [facility] eGFR 39(L) >=60 mL/min/1. 73m2 05/27/2024 11:11 AM EST [facility] Comment:The estimated glomer ular filtration [...] - 4.2 g/dL 05/27/2024 11:11 AM EST [facility] A/G Ratio 0.9(L) 1.5 - 3.0 05/27/2024 11:11 AM EST [facility] Blood Structure of peripheral vein / Unknown Venipuncture / Unknown 05/27/2024 10:09 AM EST 05/27/2024 10:10 AM EST Salo Whyte MD LAB BLOOD ORDERABLES Final Result Performing Organization Address City/State/[facility] Co de Phone Number [facility] [address] [facility] [address] [place] [address], documented in this encounter Visit Diagnoses Diagnosis Acute and chronic respiratory failure with hypoxia (HCC) No diagnosis documented in this encounter Additional Health Concerns Infection Onset Date Last Indicated Resolved Time 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
--- OUTSIDE RECORDS SUMMARY | 2025-03-08 21:09 | XMS_ITS | Encounter Summary ---
Author Organization [facility] Address [address] [place] [address] Care Team Providers Care Production Assembly Operator Name Role Phone Uday Sheehan Primary Care Provider [phone] Encounter Details Date Type Department Care Team (Late st Contact Info) Description 03/12/2024 Lab Requisition [facility] [address] [place] [address] Valarie Pierson MD [address] [place] [address] Acute and chronic respiratory failure with hypoxia; [...] Date/Time Associated Diagnosis Comments RESPIRATORY PANEL PLUS, PRINCIPAL INVESTIGATOR SWAB ([facility]) Routine 03/12/2024 9:35 AM EDT Acute [...] negative HIV tests. * Respiratory Panel w/Sars-CoV-2, PRINCIPAL INVESTIGATOR Swab - [place] only (03/12/2024 9:35 AM EDT) Adenovirus DNA (PCR) Not Detected Not Detected QIAGEN QIASTAT-D X 03/12/2024 11:56 AM EDT [facility] Human Coronavirus 229E RNA (PCR) Not Detected Not Detected QIAGEN QIASTAT-D X 03/12/2024 11:56 AM EDT [facility] Human Coronavirus HKU1 RNA (PCR) Not Detected Not Detected QIAGEN QIASTAT-D X 03/12/2024 11:56 AM EDT [facility] Human Coronavirus NL63 RNA (PCR) Not Detected Not Detected QIAGEN QIASTAT-D X 03/12/2024 11:56 AM EDT [facility] Human Coronavirus OC43 RNA (PCR) Not Detected Not Detected QIAGEN QIASTAT-D X 03/12/2024 11:56 AM EDT [facility] Human Metapneumovirus RNA (PCR) Not Detected Not Detected QIAGEN QIASTAT-D X 03/12/2024 11:56 AM EDT [facility] Influenza A RNA (PCR) Not Detected Not Detected QIAGEN QIASTAT-D X 03/12/2024 11:56 AM EDT [facility] Influenza A H1 RNA (PCR) Not Detected Not Detected QIAGEN QIASTAT-D X 03/12/2024 11:56 AM EDT [facility] Influenza A H3 RNA (PCR) Not Detected Not Detected QIAGEN QIASTAT-D X 03/12/2024 11:56 AM EDT [facility] Influenza A H1N1 RNA (PCR) Not Detected Not Detected QIAGEN QIASTAT-D X 03/12/2024 11:56 AM EDT [facility] Influenza B RNA (PCR) Not Detected Not Detected QIAGEN QIASTAT-D X 03/12/2024 11:56 AM EDT [facility] Parainfluenza 1 RNA (PCR) Not Detected Not Detected QIAGEN QIASTAT-D X 03/12/2024 11:56 AM EDT [facility] Parainfluenza 2 RNA (PCR) Not Detected Not Detected QIAGEN QIASTAT-D X 03/12/2024 11:56 AM EDT [facility] Parainfluenza 3 RNA (PCR) Not Detected Not Detected QIAGEN QIASTAT-D X 03/12/2024 11:56 AM EDT [facility] Parainfluenza 4 RNA (PCR) Not Detected Not Detected QIAGEN QIASTAT-D X 03/12/2024 11:56 AM EDT [facility] Human Rhinovirus/Enterov irus RNA (PCR) Not Detected Not Detected QIAGEN QIASTAT-D X 03/12/2024 11:56 AM EDT [facility] RSV RNA (PCR) Not Detected Not Detected QIAGEN QIASTAT-D X 03/12/2024 11:56 AM EDT [facility] SARS CoV-2 RNA (PCR) Not Detected Not Detected QIAGEN QIASTAT-D X 03/12/2024 11:56 AM EDT [facility] Bordetella pertussis DNA (PCR) Not Detected Not Detected QIAGEN QIASTAT-D X 03/12/2024 11:56 AM EDT [facility] Chlamydophila pneumoniae DNA (PCR) Not Detected Not Detected QIAGEN QIASTAT-D X 03/12/2024 11:56 AM EDT [facility] Mycoplasma pneumoniae DNA (PCR) Not Detected Not Detected QIAGEN QIASTAT-D X 03/12/2024 11:56 AM EDT [facility] Nasopharyngeal Swab Specimen from nasopharyngeal structure / Unknown 03/12/2024 9:35 AM EDT 03/12/2024 9:58 AM EDT Narrative [facility] - 03/12/2024 11:56 AM EDT [...] FLUIDS AND STOOLS ORD ERABLES Final Result [facility] [address] [facility] [address] [place] [address], * Methicillin Resistant Staphylococcus aureus (MRSA) Culture Screen (03/12/2024 9:35 AM EDT) MRSA Culture No methicillin resistant Staphylococcus aureus (MRSA) isolated. [facility]UAL 03/14/2024 7:25 AM EDT [facility] Swab Nasal structure / Unknown 03/12/2024 9:35 AM EDT 03/12/2024 9:58 AM EDT Valarie Pierson MD LAB MICROBIOLOGY - GENERAL ORD ERABLES Final Result [facility] [address] [place] [address] [address] [place] [address], * (ABNORMAL) CBC Auto Differential (03/12/2024 9:35 AM EDT) WBC 7.1 4.8 - 10.8 10*3/uL 03/12/2024 10:00 AM EDT [facility] RBC 3.25(L) 4.70 - 6.10 10*6/uL 03/12/2024 10:00 AM EDT [facility] Hemoglobin 9.2(L) 13.7 - 16.5 g/dL 03/12/2024 10:00 AM EDT [facility] Hematocrit 28.1(L) 40.5 - 48.5 % 03/12/2024 10:00 AM EDT [facility] MCV 86.5 80.0 - 94.0 fL 03/12/2024 10:00 AM EDT [facility] MCH 28.3 26.0 - 34.0 pg 03/12/2024 10:00 AM EDT [facility] MCHC 32.7 31.0 - 36.0 g/dL 03/12/2024 10:00 AM EDT [facility] RDW 15.0 12.0 - 15.0 % 03/12/2024 10:00 AM EDT [facility] RDW Standard Deviation 47.8(H) 35.1 - 43.9 fL 03/12/2024 10:00 AM EDT [facility] Platelets 124(L) 140 - 440 10*3/uL 03/12/2024 10:00 AM EDT [facility] MPV 10.6 9.4 - 12.4 fL 03/12/2024 10:00 AM EDT [facility] Neutrophil % 56.8 50.0 - 75.0 % 03/12/2024 10:00 AM EDT [facility] Immature Grans % 0.3 0.0 - 0.9 % 03/12/2024 10:00 AM EDT [facility] Lymphocyte % 27.0 20.0 - 44.0 % 03/12/2024 10:00 AM EDT [facility] Monocyte % 11.5 0.0 - 14.0 % 03/12/2024 10:00 AM EDT [facility] Eosinophil % 3.8 0.0 - 5.0 % 03/12/2024 10:00 AM EDT [facility] Basophil % 0.6 0.0 - 2.0 % 03/12/2024 10:00 AM EDT [facility] Neutrophil # 4.03 1.80 - 7.70 10*3/uL 03/12/2024 10:00 AM EDT [facility] Immature Grans # <0.03 0.00 - 0.03 10*3/uL 03/12/2024 10:00 AM EDT [facility] Lymphocyte # 1.90 1.00 - 4.75 10*3/uL 03/12/2024 10:00 AM EDT [facility] Monocyte # 0.80 0.00 - 6.00 10*3/uL 03/12/2024 10:00 AM EDT [facility] Eosinophil # 0.30 0.00 - 0.80 10*3/uL 03/12/2024 10:00 AM EDT [facility] Basophil # <0.03 0.00 - 0.20 10*3/uL 03/12/2024 10:00 AM EDT [facility] nRBC % 0.0 0 - 0 /100 WBCs 03/12/2024 10:00 AM EDT [facility] nRBC # <0.01 0.00 - 0.13 10*3/uL 03/12/2024 10:00 AM EDT [facility] Blood Structure of peripheral vein / Unknown 03/12/2024 9:35 AM EDT 03/12/2024 9:35 AM EDT us Valarie Pierson MD LAB BLOOD ORDERABLES Final Res ult Performing Organization Address [facility]/ZIP Co de Phone Number [facility] [address] [address], [place] [phone] * (ABNORMAL) TSH (03/12/2024 9:35 AM EDT) TSH 11.100(H) 0.270 - 4.200 uIU/mL 03/12/2024 10:37 AM EDT [facility] Blood Structure of peripheral vein / Unknown 03/12/2024 9:35 AM EDT 03/12/2024 9:35 AM EDT Valarie Pierson MD LAB BLOOD ORDERABLES Final Res ult Performing Organization Address [facility]/ZIP Co de Phone Number [facility] [address] [address], [place] [phone] * (ABNORMAL) Comprehensive Metabolic Panel (03/12/2024 9:35 AM EDT) NA 137 136 - 145 mmol/L 03/12/2024 10:37 AM EDT [facility] K 3.9 3.5 - 5.1 mmol/L 03/12/2024 10:37 AM EDT [facility] Cl 101 98 - 109 mmol/L 03/12/2024 10:37 AM EDT [facility] CO2 27 23 - 32 mmol/L 03/12/2024 10:37 AM EDT [facility] Anion Gap 13 >=0 03/12/2024 10:37 AM EDT [facility] Glucose 99 60 - 99 mg/dL 03/12/2024 10:37 AM EDT [facility] Creatinine 1.08 0.50 - 1.12 mg/dL 03/12/2024 10:37 AM EDT [facility] Calcium 9.4 8.4 - 10.4 mg/dL 03/12/2024 10:37 AM T [facility] Total Protein 6.6 6.6 - 8.7 g/dL 03/12/2024 10:37 AM [facility] Albumin 3.2(L) 3.5 - 5.0 g/dL 03/12/2024 10:37 AM EDT [facility] Bilirubin, Total 0.4 0.2 - 1.2 mg/dL 03/12/2024 10:37 AM T [facility] Alkaline Phosphatase 109 40 - 129 U/L 03/12/2024 10:37 AM T [facility] AST 62(H) 0 - 40 U/L 03/12/2024 10:37 AM [facility] ALT 65(H) <=41 U/L 03/12/2024 10:37 AM [facility] BUN 14 8 - 23 mg/dL 03/12/2024 10:37 AM [facility] eGFR 68 >=60 mL/min/1. 73m2 03/12/2024 10:37 AM T [facility] Comment:The estimated glomer ular filtration [...] 2.1 - 4.2 g/dL 03/12/2024 10:37 AM [facility] A/G Ratio 0.9(L) 1.5 - 3.0 03/12/2024 10:37 AM EDT [facility] Blood Structure of peripheral vein / Unknown 03/12/2024 9:35 AM EDT 03/12/2024 9:35 AM EDT us Valarie Pierson MD LAB BLOOD ORDERABLES Final Res ult [facility] [address] [facility] [address] [place] [address], documented in this encounter Visit Diagnoses Diagnosis [...] as of this encounter Care Teams Production Assembly Operator Relationship Specialty Start Date End Date Uday Sheehan [address] [place] [address] [place] [address] PCP - General Internal Medicine 03/27/24 documented as of this encounter
--- OUTSIDE RECORDS SUMMARY | 2025-03-08 21:09 | XMS_ITS | Encounter Summary ---
Author Organization [facility] Address [address] [place] [address] Care Team Providers Care Assembly Lead Person Name Role Phone Uday Sheehan MD Primary Care Provider [phone] Encounter Details Date Type Department Care Team (Late st Contact Info) Description 06/11/2024 Lab Requisition [facility] - Main Lab [address] [place] [address] Zak Zuluaga MD [address] [place] [address] Anemia, unspecified Social History Tobacco Use Types [...] LAB CHEMISTRY METHOD 06/11/2024 10:54 AM EST [facility] Potassium 4.4 3.5 - 5.5 mmol/L LAB CHEMISTRY METHOD 06/11/2024 10:[address] [facility] Chloride 112(H) 96 - 110 mmol/L LAB CHEMISTRY METHOD 06/11/2024 10:[address] [facility] CO2 23 21 - 32 mmol/L LAB CHEMISTRY METHOD 06/11/2024 10:[address] [facility] Anion Gap 10 3 - 11 LAB CHEMISTRY METHOD 06/11/2024 10:[address] [facility] Glucose 88 70 - 100 mg/dL LAB CHEMISTRY METHOD 06/11/2024 10:[address] [facility] BUN 42(H) 5 - 25 mg/dL LAB CHEMISTRY METHOD 06/11/2024 10:[address] [facility] Creatinine 2.55(H) 0.70 - 1.30 mg/dL LAB CHEMISTRY METHOD 06/11/2024 10:[address] [facility] eGFR 24(L) >=60 mL/min/1. 73m2 LAB CHEMISTRY METHOD 06/11/2024 10:[address] [facility] Comment:Calculation based on the Chronic Kidney Disease Epidemiology Collaboration (CKD-EPI) equation refit without adjustment for race. BUN/Creatinine Ratio 16.5 LAB CHEMISTRY METHOD 06/11/2024 10:[address] [facility] Calcium 7.9(L) 8.5 - 10.5 mg/dL LAB CHEMISTRY METHOD 06/11/2024 10:[address] [facility] Blood Venous blood specimen / Unknown Venipuncture / Unknown 06/11/2024 8:24 AM EST 06/11/2024 9:58 AM EST us Zak Zuluaga MD LAB BLOOD ORDERABLES Final Resul t [facility] [address] [place] [address], * (ABNORMAL) Complete blood count (06/11/2024 8:24 AM EST) [facility] WBC 5.5 4.8 - 10.8 K/mcL LAB HEMETOLOGY METHOD 06/11/2024 10:[address] [facility] RBC 2.90(L) 4.50 - 5.50 M/mcL LAB HEMETOLOGY METHOD 06/11/2024 10:[address] [facility] Hemoglobin 7.7(L) 13.5 - 17.5 g/dL LAB HEMETOLOGY METHOD 06/11/2024 10:[address] [facility] Hematocrit 25.5(L) 42.0 - 54.0 % LAB HEMETOLOGY METHOD 06/11/2024 10:[address] [facility] MCV 87.6 79.0 - 98.0 FL LAB HEMETOLOGY METHOD 06/11/2024 10:[address] [facility] MCH 26.5(L) 27.0 - 32.0 pcg LAB HEMETOLOGY METHOD 06/11/2024 10:[address] [facility] MCHC 30.2(L) 32.0 - 37.0 g/dL LAB HEMETOLOGY METHOD 06/11/2024 10:[address] [facility] RDW 16.7(H) 11.0 - 15.0 % LAB HEMETOLOGY METHOD 06/11/2024 10:[address] [facility] Platelets 176 130 - 400 K/mcL LAB HEMETOLOGY METHOD 06/11/2024 10:[address] [facility] MPV 10.7 7.0 - 11.0 FL LAB HEMETOLOGY METHOD 06/11/2024 10:[address] [facility] NRBC 0.0 <1.0 % LAB HEMETOLOGY METHOD 06/11/2024 10:[address] 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
--- OUTSIDE RECORDS SUMMARY | 2025-03-08 21:09 | XMS_ITS | Encounter Summary ---
Author Organization [facility] Address [address] [place] [address] Care Team Providers Care Ux Information Architect Name Role Phone Uday Sheehan Primary Care Provider [phone] Encounter Details Date Type Department Care Team (Late st Contact Info) Description 05/23/2024 Lab Requisition [facility] [address] [place] [address] Lidia Barry, CB [address] [place] [address] Acute and chronic respiratory failure with hypoxia; [...] - 19 mm/Hr 05/23/2024 10:52 AM EST [facility] Blood Structure of peripheral vein / Unknown Venipuncture / Unknown 05/23/2024 9:28 AM EST 05/23/2024 10:40 AM EST [facility] UNIFIED COMMUNICATIONS ARCHITECT LAB BLOOD ORDERABLES Final R esult Performing Organization Address City/State/[facility] Co de Phone Number [facility] [address] [place] [address] [address] [place] [address], [place] [phone] * (ABNORMAL) CBC Auto Differential (05/23/2024 9:28 AM EST) WBC 7.1 4.8 - 10.8 10*3/uL 05/23/2024 10:51 AM EST [facility] RBC 3.05(L) 4.70 - 6.10 10*6/uL 05/23/2024 10:51 AM EST [facility] Hemoglobin 8.5(L) 13.7 - 16.5 g/dL 05/23/2024 10:51 AM EST [facility] Hematocrit 26.6(L) 40.5 - 48.5 % 05/23/2024 10:51 AM EST [facility] MCV 87.2 80.0 - 94.0 fL 05/23/2024 10:51 AM EST [facility] MCH 27.9 26.0 - 34.0 pg 05/23/2024 10:51 AM EST [facility] MCHC 32.0 31.0 - 36.0 g/dL 05/23/2024 10:51 AM [facility] RDW 16.9(H) 12.0 - 15.0 % 05/23/2024 10:51 AM [facility] RDW Standard Deviation 54.4(H) 35.1 - 43.9 fL 05/23/2024 10:51 AM [facility] Platelets 136(L) 140 - 440 10*3/uL 05/23/2024 10:51 AM [facility] MPV 10.1 9.4 - 12.4 fL 05/23/2024 10:51 AM [facility] Neutrophil % 60.6 50.0 - 75.0 % 05/23/2024 10:51 AM [facility] Immature Grans % 0.3 0.0 - 0.9 % 05/23/2024 10:51 AM [facility] Lymphocyte % 21.6 20.0 - 44.0 % 05/23/2024 10:51 AM [facility] Monocyte % 12.6 0.0 - 14.0 % 05/23/2024 10:51 AM [facility] Eosinophil % 4.3 0.0 - 5.0 % 05/23/2024 10:51 AM EST [facility] Basophil % 0.6 0.0 - 2.0 % 05/23/2024 10:51 AM [facility] Neutrophil # 4.33 1.80 - 7.70 10*3/uL 05/23/2024 10:51 AM [facility] Immature Grans # <0.03 0.00 - 0.03 10*3/uL 05/23/2024 10:51 AM [facility] Lymphocyte # 1.50 1.00 - 4.75 10*3/uL 05/23/2024 10:51 AM EST [facility] Monocyte # 0.90 0.00 - 6.00 10*3/uL 05/23/2024 10:51 AM EST [facility] Eosinophil # 0.30 0.00 - 0.80 10*3/uL 05/23/2024 10:51 AM EST [facility] Basophil # <0.03 0.00 - 0.20 10*3/uL 05/23/2024 10:51 AM EST [facility] nRBC % 0.0 0 - 0 /100 WBCs 05/23/2024 10:51 AM EST [facility] nRBC # <0.01 0.00 - 0.13 10*3/uL 05/23/2024 10:51 AM EST [facility] Blood Structure of peripheral vein / Unknown Venipuncture / Unknown 05/23/2024 9:28 AM EST 05/23/2024 10:40 AM EST [facility] LAB BLOOD ORDERABLES Final R esult Performing Organization Address City/[place] Hospital/ZIP Co de Phone Number [facility] [address] [address], [place] [phone] * (ABNORMAL) C-Reactive Protein (05/23/2024 9:28 AM EST) [facility] C Reactive Protein 12.4(H) <=10.0 mg/L 05/23/2024 11:08 AM EST [facility] Blood Structure of peripheral vein / Unknown Venipuncture / Unknown 05/23/2024 9:28 AM EST 05/23/2024 10:40 AM EST [facility] UNIFIED COMMUNICATIONS ARCHITECT LAB BLOOD ORDERABLES Final R [facility] Performing Organization Address City/[facility] Hospital/[facility] Co de Phone Number [facility] [address] [address], [place] [phone] * (ABNORMAL) Comprehensive Metabolic Panel (05/23/2024 9:28 AM EST) Pathologist [facility] NA 142 136 - 145 mmol/L 05/23/2024 11:08 AM [facility] K 3.9 3.5 - 5.1 mmol/L 05/23/2024 11:08 AM [facility] Cl 104 98 - 109 mmol/L 05/23/2024 11:08 AM [facility] CO2 27 22 - 32 mmol/L 05/23/2024 11:08 AM [facility] Anion Gap 15 >=0 05/23/2024 11:08 AM [facility] Glucose 102(H) 60 - 99 mg/dL 05/23/2024 11:08 AM [facility] Creatinine 1.65(H) 0.50 - 1.12 mg/dL 05/23/2024 11:08 AM [facility] Calcium 9.1 8.4 - 10.4 mg/dL 05/23/2024 11:08 AM [facility] Total Protein 6.2(L) 6.6 - 8.7 g/dL 05/23/2024 11:08 AM [facility] Albumin 3.1(L) 3.5 - 5.0 g/dL 05/23/2024 11:08 AM [facility] Bilirubin, Total 0.2 0.2 - 1.2 mg/dL 05/23/2024 11:08 AM [facility] Alkaline Phosphatase 117 40 - 129 U/L 05/23/2024 11:08 AM [facility] AST 23 0 - 40 U/L 05/23/2024 11:08 AM [facility] ALT 14 <=41 U/L 05/23/2024 11:08 AM [facility] BUN 39(H) 8 - 23 mg/dL 05/23/2024 11:08 AM [facility] eGFR 41(L) >=60 mL/min/1. 73m2 05/23/2024 11:08 AM [facility] Comment:The estimated glomer ular [...] - 4.2 g/dL 05/23/2024 11:08 AM EST [facility] A/G Ratio 1.0(L) 1.5 - 3.0 05/23/2024 11:08 AM EST [facility] Blood Structure of peripheral vein / Unknown Venipuncture / Unknown 05/23/2024 9:28 AM EST 05/23/2024 10:40 AM EST [facility] Final R esult Performing Organization Address City/State/[facility] Co de Phone Number [facility] [address] [facility] [address] [place] [address], documented in this encounter Visit Diagnoses Diagnosis Acute and chronic respiratory failure with hypoxia (HCC) No diagnosis documented in this encounter Additional Health Concerns Infection Onset Date Last Indicated Resolved Time 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
--- OUTSIDE RECORDS SUMMARY | 2025-03-08 21:10 | XMS_ITS | Patient Health Record ---
Author Organization [facility] Address [address] [facility] [address] [place] [address] Care Team Providers Care Newspaper Delivery Counselor Name Role Phone Elder Tabby LEARY Primary Care Provider Dariusz Mao Unavailable [phone] Allergies Allergen (clinical drug ingredient) Drug/Non Drug Allergy documented on EMR Reaction Allergy Type Onset Date Status Information temporarily unavailable Hydromorphone Unknown Drug Allergy Active Information temporarily unavailable Ibuprofen Unknown Drug Allergy Active Information temporarily unavailable Procaine Unknown Drug Allergy Active Reason For Referral No Information Medications Medication SIG (Take, Route, Frequency, Duration) Notes Start Date End Date Status Famotidine 20 MG 1 tablet at bedtime as needed Orally Once a day Unknown Amiodarone HCl 200 MG 1 tablet Orally On ce a day Unknown Norvasc 10 MG 1 tablet Orally Once a day Unknown Eliquis 2.5 MG as directed Orally Unknown Iron 325 (65 Fe) MG 1 tablet Orally Thre e times a Week Unknown Synthroid 75 MCG 1 tablet in the morn ing on an empty stomach Orally Once a day Unknown Tylenol 325 MG 1 tablet as needed O rally every 6 hrs Unknown Lidocaine & Adhesive Sheets 5 % (Patch) as directed Externally Unknown Social History Tobacco Use: Social History Observation Description Date Details (start date - stop date) Never Smoker NA - NA Household Question Answer Notes Marital status: Tobacco Control (Standard) Question Answer Notes Tobacco use: Nonsmoker Section Notes: Currently resides in a SNF. Currently resides in a SNF. Currently resides in a SNF. Currently resides in a SNF. Currently resides in a SNF. Currently resides in a SNF. Currently resides in a SNF. Currently resides in a SNF. Currently resides in a SNF. Currently resides in a SNF. 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) Active confirmed Problem Information temporarily unavailable Pressure ulcer of sacral region, stage 3 (L89.153) Active confirmed Problem Information temporarily unavailable Pressure ulcer of left hip, stage 3 (L89.223) Active confirmed Problem Information temporarily unavailable Pressure ulcer of left ankle, stage 3 (L89.523) Active confirmed Problem Information temporarily unavailable Pressure ulcer of right heel, stage 3 (L89.613) Active confirmed Problem Information temporarily unavailable Pressure ulcer of other site, stage 3 (L89.893) Active confirmed Problem Information temporarily unavailable 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) Active confirmed Problem Information temporarily unavailable Dysphagia, oropharyngeal phase (R13.12) Active confirmed Problem Information temporarily unavailable Unspecified lack of coordination (R27.9) Active confirmed Problem Information temporarily unavailable Presence of urogenital implants (Z96.0) Active confirmed Problem Information temporarily unavailable Pressure-induced deep tissue damage of contiguous site of back, buttock and hip (L89.46) Active confirmed Problem Information temporarily unavailable Obstructive sleep apnea (G47.33) Active confirmed Problem Information temporarily unavailable Chronic kidney disease, stage 3 (N18.30) Active confirmed Problem Information temporarily unavailable Pressure injury of deep tissue of right heel (L89.616) Active confirmed Problem Information temporarily unavailable Hyperlipidemia (E78.5) Active confirmed Problem Information temporarily unavailable Hypothyroid (E03.9) Active confirmed Problem Information temporarily unavailable Impairment of balance (R26.89) Active confirmed Problem Information temporarily unavailable Dementia (F03.90) Active confirmed Problem Information temporarily unavailable Decubitus ulcer of sacral region, 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) Active confirmed Encounters Encounter Location Date Provider Diagnosis [facility] [address] [place] [id number] 07/18/2024 Dariusztrevon Adamesien Pressure ulcer of sacral region, stage 3 L89.153 ; Dementia F03.90 ; Paroxysmal atrial fibrillation I48.0 ; Chronic systolic (congestive) heart failure I50.22 ; Acute on chronic combined systolic (congestive) and diastolic (congestive) heart failure I50.43 ; Unspecified lack of coordination R27.9 ; Obstructive sleep apnea G47.33 and Chronic kidney disease, stage [address]18[address] [address] 08/01/2024 Dariusz Waien Pressure ulcer of sacral region, stage 3 L89.153 ; Pressure injury of deep tissue of right heel L89.616 ; Dementia F03.90 ; Paroxysmal atrial fibrillation I48.0 ; Chronic systolic (congestive) heart failure I50.22 ; Acute on chronic combined systolic (congestive) and diastolic (congestive) heart failure I50.43 ; Unspecified lack of coordination R27.9 ; Obstructive sleep apnea G47.33 and Chronic kidney disease, stage 3 N18.[address] [address] 08/08/2024 Dariusz Waien Pressure ulcer of sacral region, stage 3 L89.153 ; Pressure ulcer of right heel, stage 3 L89.613 ; Pressure injury of deep tissue of right heel L89.616 ; Dementia F03.90 ; Paroxysmal atrial fibrillation I48.0 ; Chronic systolic (congestive) heart failure I50.22 ; Acute on chronic combined systolic (congestive) and diastolic (congestive) heart failure I50.43 ; Unspecified lack of coordination R27.9 ; Obstructive sleep apnea G47.33 and Chronic kidney disease, stage 3 N18.[address] [address] 08/28/2024 Dariusz Waien Pressure ulcer of right heel, stage 3 L89.613 ; Decubitus ulcer of sacral region, stage 4 L89.154 ; Pressure ulcer of sacral region, stage 3 L89.153 ; Pressure injury of deep tissue of right heel L89.616 ; Dementia F03.90 ; Paroxysmal atrial fibrillation I48.0 ; Chronic systolic (congestive) heart failure I50.22 ; Acute on chronic combined systolic (congestive) and diastolic (congestive) heart failure I50.43 ; Unspecified lack of coordination R27.9 ; Obstructive sleep apnea G47.33 and Chronic kidney disease, stage 3 N18.[address] [place] [address] 09/04/2024 Dariusz Waien Pressure ulcer of right heel, stage 3 L89.613 ; Decubitus ulcer of sacral region, stage 4 L89.154 ; Pressure ulcer of sacral region, stage 3 L89.153 ; Pressure injury of deep tissue of right heel L89.616 ; Dementia F03.90 ; Paroxysmal atrial fibrillation I48.0 ; Chronic systolic (congestive) heart failure I50.22 ; Acute on chronic combined systolic (congestive) and diastolic (congestive) heart failure I50.43 ; Unspecified lack of coordination R27.9 ; Obstructive sleep apnea G47.33 and Chronic kidney disease, stage 3 N18.30 [address] [place] [address] [place], [place] 09/19/2024 Dariusz Waien Pressure ulcer of right heel, stage 3 L89.613 ; Decubitus ulcer of sacral region, stage 4 L89.154 ; Pressure ulcer of sacral region, stage 3 L89.153 ; Pressure injury of deep tissue of right heel L89.616 ; Dementia F03.90 ; Paroxysmal atrial fibrillation I48.0 ; Chronic systolic (congestive) heart failure I50.22 ; Acute on chronic combined systolic (congestive) and diastolic (congestive) heart failure I50.43 ; Unspecified lack of coordination R27.9 ; Obstructive sleep apnea G47.33 ; Chronic kidney disease, stage 3 N18.30 and Abrasion, left lower leg, initial encounter S80.812A [address] 09/26/2024 Dariusz Waien Pressure ulcer of right heel, stage 3 L89.613 ; Decubitus ulcer of sacral region, stage 4 L89.154 ; Pressure ulcer of sacral region, stage 3 L89.153 ; Pressure injury of deep tissue of right heel L89.616 ; Dementia F03.90 ; Paroxysmal atrial fibrillation I48.0 ; Chronic systolic (congestive) heart failure I50.22 ; Acute on chronic combined systolic (congestive) and diastolic (congestive) heart failure I50.43 ; Unspecified lack of coordination R27.9 ; Obstructive sleep apnea G47.33 ; Chronic kidney disease, stage 3 N18.30 and Abrasion, left lower leg, initial encounter S80.812A [address] 11/21/2024 Dariusz Waien Pressure ulcer of right heel, stage 3 L89.613 ; Decubitus ulcer of sacral region, stage 4 L89.154 ; Pressure ulcer of sacral region, stage 3 L89.153 ; Pressure injury of deep tissue of right heel L89.616 ; Pressure ulcer of left hip, stage 3 L89.223 ; Dementia F03.90 ; Paroxysmal atrial fibrillation I48.0 ; Chronic systolic (congestive) heart failure I50.22 ; Acute on chronic combined systolic (congestive) and diastolic (congestive) heart failure I50.43 ; Unspecified lack of coordination R27.9 ; Obstructive sleep apnea G47.33 ; Chronic kidney disease, stage 3 N18.30 ; Abrasion, left lower leg, initial encounter S80.812A and Abrasion, left lower leg, subsequent encounter S80.812D [address] 12/05/2024 Dariusz Waien Pressure ulcer of right heel, stage 3 L89.613 ; Decubitus ulcer of sacral region, stage 4 L89.154 ; Pressure ulcer of sacral region, stage 3 L89.153 ; Pressure injury of deep tissue of right heel L89.616 ; Pressure ulcer of left hip, stage 3 L89.223 ; Dementia F03.90 ; Paroxysmal atrial fibrillation I48.0 ; Chronic systolic (congestive) heart failure I50.22 ; Acute on chronic combined systolic (congestive) and diastolic (congestive) heart failure I50.43 ; Unspecified lack of coordination R27.9 ; Obstructive sleep apnea G47.33 ; Chronic kidney disease, stage 3 N18.30 ; Abrasion, left lower leg, initial encounter S80.812A ; Abrasion, left lower leg, subsequent encounter S80.812D and Pressure ulcer of other site, stage [address] [address] 12/12/2024 Dariusz Waien Pressure ulcer of right heel, stage 3 L89.613 ; Decubitus ulcer of sacral region, stage 4 L89.154 ; Pressure ulcer of sacral region, stage 3 L89.153 ; Pressure injury of deep tissue of right heel L89.616 ; Pressure ulcer of left hip, stage 3 L89.223 ; Dementia F03.90 ; Paroxysmal atrial fibrillation I48.0 ; Chronic systolic (congestive) heart failure I50.22 ; Acute on chronic combined systolic (congestive) and diastolic (congestive) heart failure I50.43 ; Unspecified lack of coordination R27.9 ; Obstructive sleep apnea G47.33 ; Chronic kidney disease, stage 3 N18.30 ; Abrasion, left lower leg, initial encounter S80.812A ; Abrasion, left lower leg, subsequent encounter S80.812D and Pressure ulcer of other site, stage [address] [address] 12/19/2024 Dariusz Waien Pressure ulcer of right heel, stage 3 L89.613 ; Decubitus ulcer of sacral region, stage 4 L89.154 ; Pressure ulcer of sacral region, stage 3 L89.153 ; Pressure injury of deep tissue of right heel L89.616 ; Pressure ulcer of left hip, stage 3 L89.223 ; Dementia F03.90 ; Paroxysmal atrial fibrillation I48.0 ; Chronic systolic (congestive) heart failure I50.22 ; Acute on chronic combined systolic (congestive) and diastolic (congestive) heart failure I50.43 ; Unspecified lack of coordination R27.9 ; Obstructive sleep apnea G47.33 ; Chronic kidney disease, stage 3 N18.30 ; Abrasion, left lower leg, initial encounter S80.812A ; Abrasion, left lower leg, subsequent encounter S80.812D ; Pressure ulcer of other site, stage 3 L89.893 ; Pressure-induced deep tissue damage of contiguous site of back, buttock and hip L89.46 and Pressure ulcer of left ankle, stage 3 L[address] [address] 12/26/2024 Dariusz Waien Pressure ulcer of right heel, stage 3 L89.613 ; Decubitus ulcer of sacral region, stage 4 L89.154 ; Pressure ulcer of sacral region, stage 3 L89.153 ; Pressure injury of deep tissue of right heel L89.616 ; Pressure ulcer of left hip, stage 3 L89.223 ; Dementia F03.90 ; Paroxysmal atrial fibrillation I48.0 ; Chronic systolic (congestive) heart failure I50.22 ; Acute on chronic combined systolic (congestive) and diastolic (congestive) heart failure I50.43 ; Unspecified lack of coordination R27.9 ; Obstructive sleep apnea G47.33 ; Chronic kidney disease, stage 3 N18.30 ; Abrasion, left lower leg, initial encounter S80.812A ; Abrasion, left lower leg, subsequent encounter S80.812D ; Pressure ulcer of other site, stage 3 L89.893 ; Pressure-induced deep tissue damage of contiguous site of back, buttock and hip L89.46 and Pressure ulcer of left ankle, stage 3 L89.523 [facility] [address] [address] 02/27/2025 Dariusz Waien Pressure ulcer of right heel, stage 3 L89.613 ; Decubitus ulcer of sacral region, stage 4 L89.154 ; Pressure ulcer of sacral region, stage 3 L89.153 ; Pressure injury of deep tissue of right heel L89.616 ; Pressure ulcer of left hip, stage 3 L89.223 ; Dementia F03.90 ; Paroxysmal atrial fibrillation I48.0 ; Chronic systolic (congestive) heart failure I50.22 ; Acute on chronic combined systolic (congestive) and diastolic (congestive) heart failure I50.43 ; Unspecified lack of coordination R27.9 ; Obstructive sleep apnea G47.33 ; Chronic kidney disease, stage 3 N18.30 ; Abrasion, left lower leg, initial encounter S80.812A ; Abrasion, left lower leg, subsequent encounter S80.812D ; Pressure ulcer of other site, stage 3 L89.893 ; Pressure-induced deep tissue damage of contiguous site of back, buttock and hip L89.46 and Pressure ulcer of left ankle, stage 3 L89.523 Assessments Encounter Date Diagnosis (ICD Code) Assessment Notes Treatment Notes Treatment Clinical Notes Section Notes 07/18/2024 Pressure ulcer of sacral region, stage 3 (ICD-10 - L89.153) 07/18/2024 Dementia (ICD-10 - F03.90) 08/01/2024 Pressure ulcer of sacral region, stage 3 (ICD-10 - L89.153) 08/01/2024 Pressure injury of deep tissue of right heel (ICD-10 - L89.616) 08/08/2024 Pressure ulcer of sacral region, stage 3 (ICD-10 - L89.153) 08/08/2024 Pressure ulcer of right heel, stage 3 (ICD-10 - L89.613) 08/28/2024 Pressure ulcer of right heel, stage 3 (ICD-10 - L89.613) 08/28/2024 Decubitus ulcer of sacral region, stage 4 (ICD-10 - L89.154) 09/04/2024 Pressure ulcer of right heel, stage 3 (ICD-10 - L89.613) 09/19/2024 Pressure ulcer of right heel, stage 3 (ICD-10 - L89.613) 09/26/2024 Pressure ulcer of right heel, stage 3 (ICD-10 - L89.613) 11/21/2024 Pressure ulcer of right heel, stage 3 (ICD-10 - L89.613) 12/05/2024 Pressure ulcer of right heel, stage 3 (ICD-10 - L89.613) 12/12/2024 Pressure ulcer of right heel, stage 3 (ICD-10 - L89.613) 12/19/2024 Pressure ulcer of right heel, stage 3 (ICD-10 - L89.613) 12/26/2024 Pressure ulcer of right heel, stage 3 (ICD-10 - L89.613) 02/27/2025 Pressure ulcer of right heel, stage 3 (ICD-10 - L89.613) 02/27/2025 Decubitus ulcer of sacral region, stage 4 (ICD-10 - L89.154) 12/26/2024 Decubitus ulcer of sacral region, stage 4 (ICD-10 - L89.154) 12/19/2024 Pressure ulcer of sacral region, stage 3 (ICD-10 - L89.153) 12/19/2024 Decubitus ulcer of sacral region, stage 4 (ICD-10 - L89.154) 12/12/2024 Decubitus ulcer of sacral region, stage 4 (ICD-10 - L89.154) 12/05/2024 Pressure ulcer of sacral region, stage 3 (ICD-10 - L89.153) 11/21/2024 Decubitus ulcer of sacral region, stage 4 (ICD-10 - L89.154) 12/05/2024 Decubitus ulcer of sacral region, stage 4 (ICD-10 - L89.154) 09/26/2024 Decubitus ulcer of sacral region, stage 4 (ICD-10 - L89.154) 11/21/2024 Pressure ulcer of sacral region, stage 3 (ICD-10 - L89.153) 09/19/2024 Pressure ulcer of sacral region, stage 3 (ICD-10 - L89.153) 09/19/2024 Decubitus ulcer of sacral region, stage 4 (ICD-10 - L89.154) 08/28/2024 Pressure ulcer of sacral region, stage 3 (ICD-10 - L89.153) 09/04/2024 Decubitus ulcer of sacral region, stage 4 (ICD-10 - L89.154) 07/18/2024 Paroxysmal atrial fibrillation (ICD-10 - I48.0) 08/08/2024 Pressure injury of deep tissue of right heel (ICD-10 - L89.616) 08/01/2024 Dementia (ICD-10 - F03.90) 08/01/2024 Paroxysmal atrial fibrillation (ICD-10 - I48.0) 08/08/2024 Dementia (ICD-10 - F03.90) 07/18/2024 Chronic systolic (congestive) heart failure (ICD-10 - I50.22) 08/28/2024 Pressure injury of deep tissue of right heel (ICD-10 - L89.616) 09/04/2024 Pressure ulcer of sacral region, stage 3 (ICD-10 - L89.153) 09/26/2024 Pressure ulcer of sacral region, stage 3 (ICD-10 - L89.153) 09/19/2024 Pressure injury of deep tissue of right heel (ICD-10 - L89.616) 11/21/2024 Pressure injury of deep tissue of right heel (ICD-10 - L89.616) 12/05/2024 Pressure injury of deep tissue of right heel (ICD-10 - L89.616) 12/12/2024 Pressure ulcer of sacral region, stage 3 (ICD-10 - L89.153) 12/19/2024 Pressure injury of deep tissue of right heel (ICD-10 - L89.616) 12/26/2024 Pressure ulcer of sacral region, stage 3 (ICD-10 - L89.153) 02/27/2025 Pressure ulcer of sacral region, stage 3 (ICD-10 - L89.153) 02/27/2025 Pressure injury of deep tissue of right heel (ICD-10 - L89.616) 12/26/2024 Pressure injury of deep tissue of right heel (ICD-10 - L89.616) 12/19/2024 Pressure ulcer of left hip, stage 3 (ICD-10 - L89.223) 12/12/2024 Pressure injury of deep tissue of right heel (ICD-10 - L89.616) 11/21/2024 Pressure ulcer of left hip, stage 3 (ICD-10 - L89.223) 09/26/2024 Pressure injury of deep tissue of right heel (ICD-10 - L89.616) 12/05/2024 Pressure ulcer of left hip, stage 3 (ICD-10 - L89.223) 09/19/2024 Dementia (ICD-10 - F03.90) 09/04/2024 Pressure injury of deep tissue of right heel (ICD-10 - L89.616) 08/28/2024 Dementia (ICD-10 - F03.90) 07/18/2024 Acute on chronic combined systolic (congestive) and diastolic (congestive) heart failure (ICD-10 - I50.43) 08/01/2024 Chronic systolic (congestive) heart failure (ICD-10 - I50.22) 08/08/2024 Paroxysmal atrial fibrillation (ICD-10 - I48.0) 08/08/2024 Chronic systolic (congestive) heart failure (ICD-10 - I50.22) 08/01/2024 Acute on chronic combined systolic (congestive) and diastolic (congestive) heart failure (ICD-10 - I50.43) 07/18/2024 Unspecified lack of coordination (ICD-10 - R27.9) 08/28/2024 Paroxysmal atrial fibrillation (ICD-10 - I48.0) 09/04/2024 Dementia (ICD-10 - F03.90) 09/19/2024 Paroxysmal atrial fibrillation (ICD-10 - I48.0) 09/26/2024 Dementia (ICD-10 - F03.90) 11/21/2024 Dementia (ICD-10 - F03.90) 12/12/2024 Pressure ulcer of left hip, stage 3 (ICD-10 - L89.223) 12/05/2024 Dementia (ICD-10 - F03.90) 12/19/2024 Dementia (ICD-10 - F03.90) 12/26/2024 Pressure ulcer of left hip, stage 3 (ICD-10 - L89.223) 02/27/2025 Pressure ulcer of left hip, stage 3 (ICD-10 - L89.223) 02/27/2025 Dementia (ICD-10 - F03.90) 12/26/2024 Dementia (ICD-10 - F03.90) 12/12/2024 Dementia (ICD-10 - F03.90) 12/19/2024 Paroxysmal atrial fibrillation (ICD-10 - I48.0) 11/21/2024 Paroxysmal atrial fibrillation (ICD-10 - I48.0) 12/05/2024 Paroxysmal atrial fibrillation (ICD-10 - I48.0) 09/19/2024 Chronic systolic (congestive) heart failure (ICD-10 - I50.22) 09/04/2024 Paroxysmal atrial fibrillation (ICD-10 - I48.0) 09/26/2024 Paroxysmal atrial fibrillation (ICD-10 - I48.0) 08/28/2024 Chronic systolic (congestive) heart failure (ICD-10 - I50.22) 07/18/2024 Obstructive sleep apnea (ICD-10 - G47.33) 08/08/2024 Acute on chronic combined systolic (congestive) and diastolic (congestive) heart failure (ICD-10 - I50.43) 08/01/2024 Unspecified lack of coordination (ICD-10 - R27.9) 08/01/2024 Obstructive sleep apnea (ICD-10 - G47.33) 07/18/2024 Chronic kidney disease, stage 3 (ICD-10 - N18.30) 08/28/2024 Acute on chronic combined systolic (congestive) and diastolic (congestive) heart failure (ICD-10 - I50.43) 08/08/2024 Unspecified lack of coordination (ICD-10 - R27.9) 09/26/2024 Chronic systolic (congestive) heart failure (ICD-10 - I50.22) 09/04/2024 Chronic systolic (congestive) heart failure (ICD-10 - I50.22) 09/19/2024 Acute on chronic combined systolic (congestive) and diastolic (congestive) heart failure (ICD-10 - I50.43) 12/05/2024 Chronic systolic (congestive) heart failure (ICD-10 - I50.22) 12/12/2024 Paroxysmal atrial fibrillation (ICD-10 - I48.0) 11/21/2024 Chronic systolic (congestive) heart failure (ICD-10 - I50.22) 12/19/2024 Chronic systolic (congestive) heart failure (ICD-10 - I50.22) 12/26/2024 Paroxysmal atrial fibrillation (ICD-10 - I48.0) 02/27/2025 Paroxysmal atrial fibrillation (ICD-10 - I48.0) 02/27/2025 Chronic systolic (congestive) heart failure (ICD-10 - I50.22) 12/26/2024 Chronic systolic (congestive) heart failure (ICD-10 - I50.22) 12/19/2024 Acute on chronic combined systolic (congestive) and diastolic (congestive) heart failure (ICD-10 - I50.43) 11/21/2024 Acute on chronic combined systolic (congestive) and diastolic (congestive) heart failure (ICD-10 - I50.43) 12/12/2024 Chronic systolic (congestive) heart failure (ICD-10 - I50.22) 12/05/2024 Acute on chronic combined systolic (congestive) and diastolic (congestive) heart failure (ICD-10 - I50.43) 09/04/2024 Acute on chronic combined systolic (congestive) and diastolic (congestive) heart failure (ICD-10 - I50.43) 09/26/2024 Acute on chronic combined systolic (congestive) and diastolic (congestive) heart failure (ICD-10 - I50.43) 09/19/2024 Unspecified lack of coordination (ICD-10 - R27.9) 08/08/2024 Obstructive sleep apnea (ICD-10 - G47.33) 08/28/2024 Unspecified lack of coordination (ICD-10 - R27.9) 08/01/2024 Chronic kidney disease, stage 3 (ICD-10 - N18.30) 08/28/2024 Obstructive sleep apnea (ICD-10 - G47.33) 08/08/2024 Chronic kidney disease, stage 3 (ICD-10 - N18.30) 09/19/2024 Obstructive sleep apnea (ICD-10 - G47.33) 09/26/2024 Unspecified lack of coordination (ICD-10 - R27.9) 09/04/2024 Unspecified lack of coordination (ICD-10 - R27.9) 12/12/2024 Acute on chronic combined systolic (congestive) and diastolic (congestive) heart failure (ICD-10 - I50.43) 12/05/2024 Unspecified lack of coordination (ICD-10 - R27.9) 11/21/2024 Unspecified lack of coordination (ICD-10 - R27.9) 12/26/2024 Acute on chronic combined systolic (congestive) and diastolic (congestive) heart failure (ICD-10 - I50.43) 12/19/2024 Unspecified lack of coordination (ICD-10 - R27.9) 02/27/2025 Acute on chronic combined systolic (congestive) and diastolic (congestive) heart failure (ICD-10 - I50.43) 12/26/2024 Unspecified lack of coordination (ICD-10 - R27.9) 02/27/2025 Unspecified lack of coordination (ICD-10 - R27.9) 12/19/2024 Obstructive sleep apnea (ICD-10 - G47.33) 12/12/2024 Unspecified lack of coordination (ICD-10 - R27.9) 11/21/2024 Obstructive sleep apnea (ICD-10 - G47.33) 12/05/2024 Obstructive sleep apnea (ICD-10 - G47.33) 09/04/2024 Obstructive sleep apnea (ICD-10 - G47.33) 09/26/2024 Obstructive sleep apnea (ICD-10 - G47.33) 09/19/2024 Chronic kidney disease, stage 3 (ICD-10 - N18.30) 08/28/2024 Chronic kidney disease, stage 3 (ICD-10 - N18.30) 09/19/2024 Abrasion, left lower leg, initial encounter (ICD-10 - S80.812A) 09/26/2024 Chronic kidney disease, stage 3 (ICD-10 - N18.30) 09/04/2024 Chronic kidney disease, stage 3 (ICD-10 - N18.30) 12/05/2024 Chronic kidney disease, stage 3 (ICD-10 - N18.30) 11/21/2024 Chronic kidney disease, stage 3 (ICD-10 - N18.30) 12/12/2024 Obstructive sleep apnea (ICD-10 - G47.33) 12/19/2024 Chronic kidney disease, stage 3 (ICD-10 - N18.30) 02/27/2025 Obstructive sleep apnea (ICD-10 - G47.33) 12/26/2024 Obstructive sleep apnea (ICD-10 - G47.33) 12/26/2024 Chronic kidney disease, stage 3 (ICD-10 - N18.30) 02/27/2025 Chronic kidney disease, stage 3 (ICD-10 - N18.30) 12/19/2024 Abrasion, left lower leg, initial encounter (ICD-10 - S80.812A) 12/12/2024 Chronic kidney disease, stage 3 (ICD-10 - N18.30) 11/21/2024 Abrasion, left lower leg, initial encounter (ICD-10 - S80.812A) 12/05/2024 Abrasion, left lower leg, initial encounter (ICD-10 - S80.812A) 09/26/2024 Abrasion, left lower leg, initial encounter (ICD-10 - S80.812A) 12/05/2024 Abrasion, left lower leg, subsequent encounter (ICD-10 - S80.812D) 11/21/2024 Abrasion, left lower leg, subsequent encounter (ICD-10 - S80.812D) 12/12/2024 Abrasion, left lower leg, initial encounter (ICD-10 - S80.812A) 12/19/2024 Abrasion, left lower leg, subsequent encounter (ICD-10 - S80.812D) 02/27/2025 Abrasion, left lower leg, initial encounter (ICD-10 - S80.812A) 12/26/2024 Abrasion, left lower leg, initial encounter (ICD-10 - S80.812A) 12/26/2024 Abrasion, left lower leg, subsequent encounter (ICD-10 - S80.812D) 02/27/2025 Abrasion, left lower leg, subsequent encounter (ICD-10 - S80.812D) 12/19/2024 Pressure ulcer of other site, stage 3 (ICD-10 - L89.893) 12/12/2024 Abrasion, left lower leg, subsequent encounter (ICD-10 - S80.812D) 12/05/2024 Pressure ulcer of other site, stage 3 (ICD-10 - L89.893) 12/12/2024 Pressure ulcer of other site, stage 3 (ICD-10 - L89.893) 12/19/2024 Pressure-induced deep tissue damage of contiguous site of back, buttock and hip (ICD-10 - L89.46) 02/27/2025 Pressure ulcer of other site, stage 3 (ICD-10 - L89.893) 12/26/2024 Pressure ulcer of other site, stage 3 (ICD-10 - L89.893) 12/26/2024 Pressure-induced deep tissue damage of contiguous site of back, buttock and hip (ICD-10 - L89.46) 02/27/2025 Pressure-induced deep tissue damage of contiguous site of back, buttock and hip (ICD-10 - L89.46) 12/19/2024 Pressure ulcer of left ankle, stage 3 (ICD-10 - L89.523) 02/27/2025 Pressure ulcer of left ankle, stage 3 (ICD-10 - L89.523) 12/26/2024 Pressure ulcer of left ankle, stage 3 (ICD-10 - L89.523) 07/18/2024 Other Today I saw Ramon the detention for his initial evaluation and management of a stage III pressure ulcer involving his sacrum. As noted it was found on admission to the detention from the hospital. On exam today he is afebrile, we then removed the dressings and I examined the wound site. He has an open wound involving the majority of his sacrum extending from his left buttocks to the right buttocks. There was evidence of devitalized tissue covering majority of the wound site. There was a moderate amount of drainage but no evidence of any purulent drainage. After examining the area I performed debridement of it as outlined. He tolerated the procedure well. I recommended that we apply Santyl to the wound site and cover it with a dry dressing. Staff will perform his dressing changes daily and additional changes as necessary. They will also continue to offload and reposition him frequently and I will follow-up with him next week. 08/01/2024 Other Today I saw Ramon at the detention for his follow-up appointment. Nursing staff report no new issues related to his wound site. Staff perform his dressing changes regularly. They also report that he has developed a new DTI on his right heel. On exam he continues to have a large open area involving the coccyx/sacrum and now a new deep tissue injury involving his right heel. After examining the wound sites I performed debridement of the large wound on the sacrum as outlined. He tolerated the procedure well. We will continue to use Santyl which was applied on to the wound base and covered it with a dry dressing. Staff will perform his his dressing changes daily plus additional changes as necessary. In addition there apply skin prep to the deep tissue injury on his heel. I will follow-up with him next week. 08/08/2024 Other Today I saw Ramon at the detention for his follow-up appointment. Nursing staff have been performing his dressing changes as recommended. However the staff report that there was evidence of skin breakdown involving the deep tissue injury on his right heel. On exam today he is reported to be afebrile, we then removed the dressings and examined the wound site. He continues to have an open area on his coccyx as outlined. There was evidence of extensive amount of devitalized tissue covering the base of this wound. After examining this area I performed debridement of it as outlined. He tolerated the procedure well. I then examined the wound on his right heel. There is no evidence of any breakdown with no evidence of any purulent drainage or any other signs suggest an underlying infective process. After examining the area I then performed debridement of it as outlined. He tolerated the procedure well. I recommended that we should apply Santyl on to both wound sites and cover them with a dry dressing. Staff will perform his dressing changes daily and they will be offloading the areas regularly. I will follow-up with him next week. 08/28/2024 Other Today I saw Ramon at the detention for his follow-up appointment. Since I last saw him he has been hospitalized and was treated for a UTI and also underwent surgical debridement of the wound on his coccyx. He is now back at the detention. On exam he has an open area on his right heel which had evidence of overlying devitalized tissue. After examining this area I performed debridement of it as outlined. He tolerated the procedure well. I recommended that we apply Santyl to this area and cover it with a dry dressing. Staff will perform dressing changes daily and they will also continue to offload the site. I then examined the wound on his coccyx; it is measuring much larger since I last him. It is now a stage IV ulcer. After examining the area I performed debridement of it as outlined to remove devitalized tissue that was covering the base. He tolerated the procedure well. At this time I recommended that we apply gauze soaked in Dakin solution to this wound site along with zinc to the periwound area and covered it with a dry dressing. Staff will perform dressing changes daily and they will also continue to offload and reposition him frequently. I will follow-up with him next week. 09/04/2024 Other Today I saw Ramon at the detention for his follow-up appointment. Since my last visit he has been admitted to the hospital for anemia. He has been transfused and was also diagnozed with a UTI for which he is currently on antibiotics. On exam today he continues to have an open area involving his right heel which appears to be a stage III pressure ulcer and a stage IV pressure ulcer involving his coccyx. Both sites have evidence of devitalized tissue covering them along with eschar covering over 50% of the wound on his heel. After examining both areas I performed extensive debridement of them as outlined. He tolerated the procedures. At this time I recommended that we apply Xeroform to the wound on his heel and continue to use gauze soaked in Dakin solution which was applied to the wound on his coccyx. Zinc was applied to the periwound areas. The sites were covered with a dry dressing. He will continue to have dressing change performed regularly and I will follow-up with him next week. Staff will also continue to offload and reposition her frequently. 09/19/2024 Other Today I saw Ramon at the detention for his follow-up appointment. Since I last saw him he has been hospitalized for low H&H. He has now returned back to the detention. On exam he continues to have a large open area involving his coccyx as well as an open wound on his right heel which is covered with an eschar. In addition he has developed a open area on the lateral aspect of his left lower extremity. Presumably this is abrasion. I did not appreciate any foul odor from the wound on his coccyx and did not see any overt signs suggest an underlying infective process. There was a moderate amount of devitalized tissue covering the wound site as well as a rim of fibrous tissue along the edges. After examining the area I performed debridement of it as outlined. He tolerated the procedure well. At this time I recommended that we continue to apply gauze soaked in Dakin solution to this wound bed along with zinc to the periwound area and cover it with a dry dressing. I then examined the new open area on the lateral aspect of his left lower extremity. The base of this wound is completely covered with devitalized tissue but there was no evidence of any surrounding erythema or other signs to suggest an underlying infective process. After examining the area I performed debridement of it as outlined. He tolerated the procedure. I recommended that we apply Santyl on to this wound bed and covered with a dry dressing. I did not perform any debridement of the wound on his heel and recommended that we continue to apply Betadine to this area. Staff will continue to perform his dressing changes daily and when necessar. they will also continue to offload and reposition him frequently. I will follow-up with him next week. 09/26/2024 Other Today I saw Ramon at the detention for his follow-up appointment. His was present at the bedside. Nursing staff have been performing his dressing changes regularly. On exam he continues to have 3 open areas as outlined. There was no foul odor or purulent drainage from the wound sites. The wound on his right heel is mostly covered with an eschar. After examining the areas I performed debridement of the wounds on his coccyx and left lower extremity but not the wound on his heel. I recommended the application of Santyl to the wound on his left lower extremity and gauze soaked in Dakin solution to the wound on his coccyx. The sites were then covered with a dry dressing. Staff will apply Betadine to the eschar cover area on his right heel daily. Staff will make efforts to offload and reposition him frequently and I will follow-up with him next week. 11/21/2024 Other Today I was asked to see Ramon. I last saw him on September 26, 2024. Since then he has been followed at the [facility] wound care clinic and has also been hospitalized where he has been followed by surgery. He has undergone debridement of his wound sites and nursing staff at the detention have been performing his dressing changes as recommended. He has been treated witha wound VAC . He has however now refused to go to the wound care clinic and also does not wish to return to surgery. He has requested that I evaluate him. On exam today he is reported to be afebrile. We then removed the dressings and examined the wound areas. He continues to have a large open area on his coccyx, as well as an open wound on his right heel and lateral aspect of his left leg. In addition he has now developed a new area on his left hip. It is a stage III pressure ulcer. There is no evidence of any foul odor, no purulent drainage but there was evidence of devitalized tissue covering the base of all 4 areas. After examining the wound sites I performed debridement of them as outlined. He tolerated the procedures well. At this time I recommended the application of gauze soaked in Dakin solution to the wound on his coccyx. As well as the application of calcium alginate with silver to the wound on his right heel and left lateral leg. Staff will apply Santyl to the new area on his left hip. The site will be covered with a dry dressing and he will have dressing changes performed daily and additional changes as necessary. They will also continue to offload and reposition frequently. I will follow-up with him next week. 12/05/2024 Other Today I saw Ramon at the detention for his follow-up appointment. I last saw him 2 weeks ago. Over this time period nursing staff have been performing his dressing changes regularly. He has however developed a new open area on the lateral aspect of his left foot. It is a stage III pressure ulcer. On exam today he is reported to be afebrile, we then removed the dressings and examined the wound sites. He now has 5 open areas as outlined. Overall the wound sites are stable and there is no sign of any purulent drainage or any underlying infective process noted. After examining all 5 areas I performed debridement of them as outlined. I recommended that we continue to apply gauze soaked in Dakin solution to the wound on his coccyx and to the remaining for areas they will apply Santyl and cover them with a dry dressing. Staff will perform his dressing changes daily and they will also be offloading and repositioning him frequently. I will follow-up with him next week. 12/12/2024 Other Today I saw Ramon at the detention for his follow-up appointment. Nursing staff report no new issues related to the wound sites. They have been performing his dressing changes regularly and report no new issues related to the wound sites. On exam today he is reported to be afebrile, we then removed the dressing and I examined the wound sites. He continues to have numerous open areas as outlined. The wound on his left heel that he of however is covered with an eschar. After examining the wound sites I performed debridement of them as outlined to remove devitalized tissue which was covering the base. I did not perform any debridement of the wound on his left heel. Today I recommended that we apply skin prep to the wound on his left heel. We will apply gauze soaked in Dakin solution to the wound on his coccyx and to the remaining wounds will be applying Santyl. The sites will be covered with a dry dressing and dressing changes will be performed daily and additional changes as necessary. I will follow-up with him next week. 12/19/2024 Other Today I saw Ramon at the detention for his follow-up appointment. Nursing staff report that he has developed 2 new areas in addition to this he has also developed a fistula next to his rectum. On exam he is reported to be afebrile. We then removed the dressings and I examined the wound areas. He has developed a DTI involving his right hip. He has also developed a stage III pressure ulcer on his left lateral malleolus. 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 Remainder of his wounds remained essentially unchanged however the wound on his right lower extremity is improving there is no evidence of any purulent drainage from any of the wound sites nor is there any evidence of any malodour noted. After examining the wound sites I performed debridement of the wound on his right heel, left lower extremity, left hip, left lateral malleolus, and the wound on his coccyx as outlined. He tolerated the procedures well. At this time I recommended the application of Xeroform to the wound on his right heel along with zinc to the periwound area and covering it with a dry dressing. Staff will apply calcium alginate with silver to the wound on his left lateral lower extremity, left hip, and to the new wound on his left lateral malleolus.Zinc was also applied to the periwound areas and the sites covered with a dry dressing. Staff will be applying gauze soaked in Dakin solution to the wound on his coccyx and will also be applying zinc to the periwound area and covering it with a dry dressing. Staff will also be applying skin prep to the wound on his left heel and the deep tissue injury on his right hip. Dressing changes will be performed daily and additional changes as necessary. Staff will also be offloading and repositioning him frequently. In regards the development of the anal fistula I recommended a GI consult would be appropriate. I also discussed with Ramon that given his comorbid conditions that he may benefit from a palliative care consult. He seems open to the idea and staff will initiate the consult. I will follow-up with him next week. 12/26/2024 Other Today I saw Ramon at the detention for his follow-up appointment. He has signed onto palliative care. Nursing staff have been performing his dressing changes regularly and report no new issues related to the wound sites. On exam he continues to have multiple open areas as outlined. After examining the wound areas I performed debridement of them as outlined to remove devitalized tissue that was present. At this time I recommend we continue with our current management plan. Staff will continue to offload and reposition him frequently. He has not been referred for any further workup regarding the fistula. I will follow-up with him as necessary. 02/27/2025 Other Today I was asked by the primary care provider for Ramon to evaluate the status of patient's wounds. Since I last saw him his CODE STATUS has been changed to [employer]. Nursing staff have been performing his dressing changes regularly. He also has extensive pain for which he is on pain medication. However he continues to experience breakthrough pain. On exam he is reported to be afebrile, the nursing staff premedicated Ramon so that I may examine his wound sites. He continues to have multiple open areas. There are slowly deteriorating. Given the amount of pain he was experiencing despite having been premedicated I elected not to perform any interventions at this time. I did however recommend that he may benefit by applying gauze soaked in Dakin solution onto the base of all of his open wound sites. Zinc will be applied to the periwound areas and the sites covered with a dry dressing. This will help to prevent the development of an infection. At this time I do not recommend performing any intervention such as debridement given the overall status of the patient. I will follow-up with him as necessary. 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 pn eumoniae] as the cause of diseases classified elsewhere B96.0 Unspecified Escherichia coli [E. coli] as the cause of diseases classified elsewhere B96.20 Hypothyroid E03.9 Hyperlipidemia E78.5 Dementia F03.90 Obstructive sleep apnea G47.33 Paroxysmal atrial fibrillation I48.0 Chronic systolic (congestive) heart fail ure I50.22 Acid reflux K21.9 Muscle weakness M62.81 Hydronephrosis with renal and ureteral c alculous obstruction N13.2 Dysphagia, oropharyngeal phase R13.12 Impairment of balance R26.89 Unspecified lack of coordination R27.9
--- NOTE | 2025-03-08 21:42 | ED.GENADULT ---
HPI - General Adult General Chief complaint: General Medical Stated complaint: Dislodged G tube Time Seen by Provider: 03/08/25 21:20 Source: patient Mode of arrival: EMS Limitations: no limitations History of Present Illness ED Provider: Dr. Martinez HPI narrative: 85 yo m history of anemia, ESBL E coli, sacral ulcer, AFib, CAD, pneumonia, cardiomyopathy, NSTEMI, CKD presented hospital today for G-tube dislodgement from [facility]. Patient stated that it was out since 19:00 today. No other complaints at this time. Related Data Home Medications ?Medication ?Instructions ?Recorded ?Confirmed acetaminophen 325 mg tablet 650 mg PO Q6H PRN Pain/Fever 06/26/24 11/07/24 amiodarone 200 mg tablet 200 mg PO DAILY 06/26/24 11/07/24 ascorbic acid (vitamin C) 500 mg 500 mg PO BID 06/26/24 11/07/24 tablet bisacodyl 10 mg rectal suppository 10 mg TX DAILY PRN Constipation 06/26/24 11/07/24 docusate sodium 100 mg tablet 200 mg PO BID 06/26/24 11/07/24 famotidine 20 mg tablet 20 mg PO BEDTIME 06/26/24 11/07/24 ferrous sulfate 325 mg (65 mg 325 mg PO BID 06/26/24 11/07/24 iron) tablet gabapentin 100 mg capsule 200 mg PO BID 06/26/24 11/07/24 levothyroxine 100 mcg tablet 100 mcg PO DAILY@0600 06/26/24 11/07/24 polyvinyl alcohol 1.4 % eye drops 1 drp ophthalmic (eye) Q6H PRN Dry 06/26/24 11/07/24 Eyes sennosides 8.6 mg tablet (senna) 17.2 mg PO BEDTIME 06/26/24 11/07/24 thiamine HCl (vitamin B1) 100 mg 100 mg PO DAILY 06/26/24 11/07/24 tablet (Vitamin B-1) Lactobacillus acidoph-L.bulgaricus 1 tab PO BID 08/11/24 11/07/24 1 million cell tablet collagenase clostridium histo. 250 1 appl topical DAILY 08/11/24 11/07/24 unit/gram topical ointment (Santyl) menthol 5 % topical patch (Cold 1 patch topical DAILY 08/11/24 11/07/24 and Hot (menthol)) ondansetron HCl 4 mg tablet 4 mg PO Q8H PRN Nausea And Vomiting 08/11/24 11/07/24 sodium phosphates 19 gram-7 118 ml TX DAILY PRN Constipation 08/11/24 11/07/24 gram/118 mL enema (Fleet Enema) zinc acetate 50 mg (zinc) capsule 50 mg PO DAILY 08/11/24 11/07/24 melatonin 5 mg tablet 10 mg PO BEDTIME PRN Insomnia 08/20/24 11/07/24 tramadol 50 mg tablet 100 mg PO Q6H PRN Pain 08/30/24 11/07/24 aspirin 81 mg tablet,delayed 81 mg PO DAILY 10/03/24 11/07/24 release fluticasone propionate 50 2 spray intranasal DAILY 10/03/24 11/07/24 mcg/actuation nasal spray,suspension magnesium hydroxide 400 mg/5 mL 30 ml PO DAILY PRN Constipation 10/03/24 11/07/24 oral suspension (Milk of Magnesia) miconazole nitrate 2 % topical 1 appl topical BID 10/03/24 11/07/24 cream pantoprazole 40 mg tablet,delayed 40 mg PO BID@0630,1630 10/03/24 11/07/24 release trazodone 50 mg tablet 25 mg PO BID PRN DEPRESSION 10/03/24 11/07/24 trazodone 50 mg tablet 50 mg PO BEDTIME 10/03/24 11/07/24 amoxicillin 875 mg tablet 875 mg PO BID 11/07/24 11/07/24 atorvastatin 40 mg tablet 40 mg PO DAILY 11/07/24 11/07/24 doxazosin 2 mg tablet 2 mg PO BEDTIME 11/07/24 11/07/24 doxycycline hyclate 100 mg tablet 100 mg PO BID 11/07/24 11/07/24 heparin, porcine (PF) 5,000 5,000 unit subcut Q8H 11/07/24 11/07/24 unit/0.5 mL injection syringe sodium chloride-hypochlorous acid 1 irrig irrigation QSHIFT PRN 11/07/24 11/07/24 0.033 % irrigation solution (Vashe) WOUND CLEANING Previous Rx's ?Medication ?Instructions ?Recorded polyethylene glycol 3350 17 gram 17 g PO DAILY #30 ea 03/06/24 oral powder packet finasteride 5 mg tablet 5 mg PO DAILY #0 tabs 07/02/24 diphenoxylate-atropine 2.5 5 ml PO DAILY #60 mL 11/10/24 mg-0.025 mg/5 mL oral liquid Allergies Allergy/AdvReac Type Severity Reaction Status Date / Time ibuprofen (IBUPROFEN) Allergy Intermediate HIVES Verified 03/08/25 20:45 hydromorphone (From DILAUDID) AdvReac Intermediate ILEUS Verified 03/08/25 20:45 procaine (From Novocain) AdvReac Intermediate has no Verified 03/08/25 20:45 numbing effect-states monocain works narcotic pain meds AdvReac Intermediate does not Uncoded 03/08/25 20:45 relieve pain per patient Review of Systems Review of Systems: Pertinent review of systems as mentioned in HPI. All other system otherwise negative. [facility] Past Medical History [facility] Narrative: Medical history as mentioned in HPI Medical History Bilateral hydronephrosis Delirium Altered mental status Sepsis Atherosclerotic cardiovascular disease PAF (paroxysmal atrial fibrillation) NSTEMI (non-ST elevated myocardial infarction) Chronic renal disease, stage 3, moderately decreased glomerular filtration rate (GFR) between 30-59 mL/min/1.73 square meter Chest pain Heart failure Thyroid disease GERD (gastroesophageal reflux disease) On anticoagulant therapy COVID-19 vaccine series completed Symptomatic cholelithiasis HTN (hypertension) Hyperlipidemia Atrial fibrillation Sleep apnea Elevated PSA Facet arthropathy, cervical BPH loc w urin obs/LUTS Surgical History S/P percutaneous endoscopic gastrostomy (PEG) tube placement Hx of tracheostomy S/P laparoscopic cholecystectomy Hx of cataract extraction History of total replacement of both hip joints Hx of cystoscopy H/O colonoscopy History of surgery Family History Family History Unknown No problems noted. 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 Stoma is open and patent. Appear to have gastric juice around the area. No sign of infection Neurological: Awake and alert, no facial droop noted Skin: Warm and dry Psychiatric: Appropriate mood and thoughts Vital Signs: Vital Signs - 24 hr 03/08/25 20:42 03/08/25 20:44 03/08/25 21:51 Temperature 97.7 F Pulse Rate 81 77 67 Respiratory Rate 16 18 16 Blood Pressure 115/46 L 115/46 L 99/42 L Pulse Oximetry 96 93 96 Oxygen Delivery Method Room Air Room Air Room Air 03/08/25 22:43 Temperature 98.2 F Pulse Rate 65 Respiratory Rate 16 Blood Pressure 99/49 L Pulse Oximetry 97 Oxygen Delivery Method Room Air BMI result Body Mass Index 29.7 Medications Administered Discontinued Medications Generic Name Dose Route Start Last Admin Trade Name Freq PRN Reason Stop Dose Admin Diatrizoate Meglum/Diatrizoate Sod 30 ml 03/08/25 22:31 03/08/25 22:31 Diatrizoate Meglumine, Sodium 30 Ml Solution PO 03/08/25 22:32 30 ml ONCE ONE Administration Lidocaine HCl 1 appl 03/08/25 21:42 03/08/25 21:51 Lidocaine Hcl 2 % Jelly 6 Ml Jel.Pf.Le TOPICAL 03/08/25 21:43 1 appl ONCE ONE Administration Protocol Medical Decision Making Medical Decision Making MDM Narrative: 85-year-old male presented hospital today for dislodged G-tube. I replaced his G-tube with an 18 Afghan. Viscous lidocaine was used for comfort. Inflated with 10 cc syringe of normal saline. Gastric juice appreciated after placement. KUB ordered to confirm placement with oral contrast Patient's G-tube appears to be in place on KUB. Dye appears to be under diaphragm and in the stomach lumen. We will plan to discharge patient at this time. Procedure: G tube insertion 18 swedish g tube was inserted with lubricant jelly. Lidocaine gel was apply for local anesthesization. Gastric juice return appreciated. 10 cc of saline was placed in balloon No complications. Tolerated procedure well. Differential Diagnosis Differential Diagnoses: The differential diagnosis associated with the presentation includes G-tube dislodgement Discharge Plan Discharge Clinical Impression: Dislodged gastrostomy tube Patient Disposition: er [facility] Prescriptions: No Action polyethylene glycol 3350 17 gram Powder In Packet 17 g PO DAILY Qty: 30 0RF Rx Instructions: Hold for loose stool. sennosides [senna] 8.6 mg Tablet 17.2 mg PO BEDTIME Rx Instructions: HOLD FOR LOOSE STOOL polyvinyl alcohol 1.4 % Drops 1 drp OPHTHALMIC (EYE) Q6H PRN (Reason: Dry Eyes) Rx Instructions: Both eyes thiamine HCl (vitamin B1) [Vitamin B-1] 100 mg Tablet 100 mg PO DAILY levothyroxine 100 mcg Tablet 100 mcg PO DAILY@0600 famotidine 20 mg Tablet 20 mg PO BEDTIME ascorbic acid (vitamin C) 500 mg Tablet 500 mg PO BID bisacodyl 10 mg Suppository 10 mg TX DAILY PRN (Reason: Constipation) Rx Instructions: If MoM not effective. ferrous sulfate 325 mg (65 mg iron) Tablet 325 mg PO BID gabapentin 100 mg Capsule 200 mg PO BID docusate sodium 100 mg Tablet 200 mg PO BID acetaminophen 325 mg tablet 650 mg PO Q6H PRN (Reason: Pain/Fever) amiodarone 200 mg tablet 200 mg PO DAILY finasteride 5 mg Tablet 5 mg PO DAILY Qty: 0 0RF melatonin 5 mg tablet 10 mg PO BEDTIME PRN (Reason: Insomnia) zinc acetate 50 mg (zinc) Capsule 50 mg PO DAILY ondansetron HCl 4 mg Tablet 4 mg PO Q8H PRN (Reason: Nausea And Vomiting) Fleet Enema 19-7 gram/118 mL Enema 118 ml TX DAILY PRN (Reason: Constipation) Santyl 250 unit/gram Ointment 1 appl TOPICAL DAILY Rx Instructions: apply to RIGHT HEEL Cold and Hot (menthol) 5 % Adhesive Patch,Medicated 1 patch TOPICAL DAILY Rx Instructions: apply to left knee Lactobacillus acidoph-L.bulgar 1 million cell Tablet 1 tab PO BID trazodone 50 mg Tablet 50 mg PO BEDTIME trazodone 50 mg Tablet 25 mg PO BID PRN (Reason: DEPRESSION) Rx Instructions: TAKE IN ADDITION TO 50 MG BEDTIME DOSE UNTIL 11/16/24 miconazole nitrate 2 % Cream 1 appl TOPICAL BID Rx Instructions: apply to coccyx aspirin 81 mg Tablet,Delayed Release (Dr/Ec) 81 mg PO DAILY magnesium hydroxide [Milk of Magnesia] 400 mg/5 mL Suspension 30 ml PO DAILY PRN (Reason: Constipation) pantoprazole 40 mg Tablet,Delayed Release (Dr/Ec) 40 mg PO BID@0630,1630 fluticasone propionate 50 mcg/actuation [place],Suspension 2 spray INTRANASAL DAILY Rx Instructions: administer into each nostril amoxicillin 875 mg tablet 875 mg PO BID Rx Instructions: TO TAKE THROUGH 11/30/24 atorvastatin 40 mg tablet 40 mg PO DAILY doxycycline hyclate 100 mg tablet 100 mg PO BID Rx Instructions: TAKE THROUGH 11/22/24 heparin, porcine (PF) 5,000 unit/0.5 mL Syringe 5,000 unit SUBCUT Q8H Rx Instructions: FOR PROPHYLAXIS RELATED TO OSTEOMYELITIS Vashe 0.033 % Irrigation Solution 1 irrig IRRIGATION QSHIFT PRN (Reason: WOUND CLEANING) doxazosin 2 mg tablet 2 mg PO BEDTIME Protocol: Hold for SBP< HOLD for SBP < : 90 diphenoxylate-atropine 2.5-0.025 mg/5 mL liquid 5 ml PO DAILY Qty: 60 0RF Rx Instructions: hold for constipation tramadol 50 mg Tablet 100 mg PO Q6H PRN (Reason: Pain) Print Language: Ukrainian
[2025-03-08 21:51] VITALS: BP 99/42; PULSE 67; RESP 16; O2SAT 96
[2025-03-08] MEDS: LIDOCAINE HCL 2% 1 APPL TOPICAL (21:51)
[2025-03-08 22:43] VITALS: BP 99/49; PULSE 65; RESP 16; TEMP 36.8; O2SAT 97
[2025-03-09 01:24] VITALS: BP 104/53; PULSE 59; RESP 16; TEMP 36.8; O2SAT 95
[2025-03-09 01:29] VITALS: BP 101/45; PULSE 63; RESP 18; TEMP 36.6; O2SAT 98
== END 2025-03-09 01:31 ==
PROVIDERS: Emergency Provider Student in an Organized Health Care Education/Training Program
DX: K94.23 Gastrostomy malfunction (principal); R10.11 Right upper quadrant pain
CPT/HCPCS: 74018; 99284

== ENCOUNTER → 2025-03-08 22:04 | Outpatient (BNV) | payer MEDICARE, SELFPAY | PROVIDERS: Emergency Provider Student in an Organized Health Care Education/Training Program; Visit Provider Radiology Diagnostic Radiology | DX: Z93.1 Gastrostomy status (principal) | CPT/HCPCS: 74018 ==